=== PATIENT | male | born 1965 | race Hispanic/Latino ===

== ENCOUNTER 2018-08-06 11:35 | Inpatient (IN) | payer MEDICAID, OTHER, SELFPAY ==
--- NOTE | 2018-08-06 13:29 | RAD REPORT ---
EXAM DESCRIPTION: RAD - Chest Single View - 08/06/2018 1:01 pm CLINICAL HISTORY: Cough COMPARISON: March 2015 imaging TECHNIQUE: AP portable chest image was obtained 1256 hours . FINDINGS: No peripheral mass or consolidation. Heart size is normal. Right heart border is partially obscured by prominent right-sided pericardial fat. Mediastinum is distorted by rotation. No measurab le pleural effusion and no pneumothorax. No acute bony abnormality seen. No acute aortic findings christopher pected. IMPRESSION: No acute cardiopulmonary process.
[2018-08-06 13:44] LABS: Absolute Lymphocytes (CBC) 1.3 K/uL (0.7-4.9); Absolute Monocytes 0.5 K/uL (0.1-1.3); Absolute Neutrophil 8.4 K/uL (1.8-8.0); Basophils % 0.7 % (0-1.3); Eosinophils % 2.1 % (0-4.4); Hematocrit 38.7 % (39.6-49.0); Lymphocytes % 12.1 % (15.3-44.8); MPV 8.4 fL (7.6-11.3); Monocytes % 4.4 % (3.3-12.3); RBC Red Blood Cell Count 4.38 M/uL (4.33-5.43)
[2018-08-06 13:47] LABS: Protime INR 0.91
--- NOTE | 2018-08-06 13:52 | ER ---
Nurse's Notes [facility] Name: Alejandro Dunbar Age: 53 yrs Sex: Male : 1965 Arrival Date: 08/06/2018 Time: 11:37 Bed 6 Private MD: Sharon Boss Diagnosis: Weakness;Unspecified kidney failure;Type 2 diabetes mellitus;Hypothyroidism, unspecified;Hypocalcemia Presentation: 08/06 11:45 Presenting complaint: Patient states: Last month my doctor told me my calcium was low la1 and that I may need to be put on dialysis, he told me if I feel bad to come to there ER and I feel back and shaky. Transition of care: patient was not received from another setting of care. Onset of symptoms was August 06, 2018. Risk Assessment: Do you want to hurt yourself or someone else? Patient reports no desire to harm self or others. Initial Sepsis Screen: Does the patient meet any 2 criteria? No. Patient's initial sepsis screen is negative. Does the patient have a suspected source of infection? No. Patient's initial sepsis screen is negative. Care prior to arrival: None. 11:45 Method Of Arrival: Ambulatory la1 11:45 Acuity: KERRI 3 la1 Historical: - Allergies: 11:47 No Known Allergies; la1 - PMHx: 11:47 Diabetes - NIDDM; Hypertension; High Cholesterol; Hypothyroidism; la1 - Immunization history:: Adult Immunizations up to date. - Social history:: Smoking status: Patient/guardian denies using tobacco. - Ebola Screening: : No symptoms or risks identified at this time. - Family history:: not pertinent. Screenin:40 Abuse screen: Denies threats or abuse. Denies injuries from another. Nutritional sg screening: No deficits noted. Tuberculosis screening: No symptoms or risk factors identified. Never had TB. Fall Risk None identified. Assessment: 12:40 General: Appears in no apparent distress. uncomfortable, well groomed, well developed, sg well nourished, Behavior is calm, cooperative, appropriate for age. Pain: Complains of pain in right lower quadrant Quality of pain is described as crampy. Neuro: No deficits noted. Cardiovascular: Capillary refill is brisk in bilateral fingers Patient's skin is warm and dry. Chest pain is denied. Respiratory: Airway is patent Respiratory effort is even, unlabored, Respiratory pattern is regular, symmetrical. GI: Reports cramping. : No signs and/or symptoms were reported regarding the genitourinary system. EENT: No signs and/or symptoms were reported regarding the EENT system. Derm: Skin is intact, is healthy with good turgor, Skin is dry, Skin is normal, Skin temperature is warm. Musculoskeletal: No signs and/or symptoms reported regarding the musculoskeletal system. 13:48 Reassessment: Patient appears in no apparent distress at this time. Renal Doctor at bedside at this time. Vital Signs: 11:47 BP 173 / 92; Pulse 65; Resp 16; Temp 97.6; Pulse Ox 98% on R/A; Weight 72.57 kg; Height la1 6 ft. 4 in. (193.04 cm); 13:00 BP 152 / 88; Pulse 65; Pulse Ox 98% on R/A; sg 15:00 BP 156 / 89; Pulse 66; Resp 17; Temp 97.6; Pulse Ox 99% ; Height 5 ft. 4 in. (162.56 sg cm); 15:00 Body Mass Index 27.46 (72.57 kg, 162.56 cm) ED Course: 11:37 Patient arrived in ED. rg4 11:37 Sharon Boss MD is Private Physician. rg4 11:46 Triage completed. la1 11:47 Arm band placed on left wrist. la1 12:39 Felton Brantley MD is Attending Physician. lazaro 12:40 Patient has correct armband on for positive identification. Bed in low position. Call light in reach. 12:42 Steven Holt, SANJAY is Primary Nurse. 13:02 XRAY Chest (1 view) In Process Unspecified. EDMS 13:10 Missed attempt(s): 20 gauge in right forearm. Bleeding controlled, band aid applied, sg catheter tip intact. 13:29 Initial lab(s) drawn, by me, sent to lab. Inserted saline lock: 20 gauge in right dh3 forearm, using aseptic technique. Blood collected. 13:51 Filiberto Roman MD is Hospitalizing Provider. lazaro 14:33 Urine collected: urinal, clear. dh3 Administered Medications: No medications were administered Outcome: 13:51 Decision to Hospitalize by Provider. lazaro 16:00 Patient left the ED. hb Signatures: Dispatcher [employer] EDMS Steven Holt RN RN Felton Adam MD MD cha Attema, Lee, RN RN la1 Baxter, Heather, RN RN hb Garcia, Rubi 4 Concetta Salas 3
--- NOTE | 2018-08-06 13:52 | EDPHYS ---
Physician Documentation [facility] Name: Alejandro Dunbar Age: 53 yrs Sex: Male : 1965 Arrival Date: 08/06/2018 Time: 11:37 Bed 6 Private MD: Sharon Boss ED Physician Felton Brantley HPI: 08/06 13:46 This 53 yrs old Male presents to ER via Ambulatory with complaints of Doesn't lazaro Feel Right. 13:46 stage 5, kidney failure. Onset: The symptoms/episode began/occurred 5 day(s) ago. lazaro Severity of symptoms: At their worst the symptoms were mild moderate in the emergency department the symptoms are unchanged. The patient has not experienced similar symptoms in the past. Historical: - Allergies: 11:47 No Known Allergies; la1 - PMHx: 11:47 Diabetes - NIDDM; Hypertension; High Cholesterol; Hypothyroidism; la1 - Immunization history:: Adult Immunizations up to date. - Social history:: Smoking status: Patient/guardian denies using tobacco. - Ebola Screening: : No symptoms or risks identified at this time. - Family history:: not pertinent. ROS: 13:46 Constitutional: Negative for fever, chills, and weight loss, Eyes: Negative for injury, lazaro pain, redness, and discharge, ENT: Negative for injury, pain, and discharge, Neck: Negative for injury, pain, and swelling, Cardiovascular: Negative for chest pain, palpitations, and edema, Respiratory: Negative for shortness of breath, cough, wheezing, and pleuritic chest pain, Abdomen/GI: Negative for abdominal pain, nausea, vomiting, diarrhea, and constipation, Back: Negative for injury and pain, : Negative for injury, bleeding, discharge, and swelling, MS/Extremity: Negative for injury and deformity, Skin: Negative for injury, rash, and discoloration, Psych: Negative for depression, anxiety, suicide ideation, homicidal ideation, and hallucinations, Allergy/Immunology: Negative for hives, rash, and allergies, Endocrine: Negative for neck swelling, polydipsia, polyuria, polyphagia, and marked weight changes, Hematologic/Lymphatic: Negative for swollen nodes, abnormal bleeding, and unusual bruising. 13:46 Neuro: Positive for weakness. Exam: 13:46 Constitutional: This is a well developed, well nourished patient who is awake, alert, lazaro and in no acute distress. Head/Face: Normocephalic, atraumatic. Eyes: Pupils equal round and reactive to light, extra-ocular motions intact. Lids and lashes normal. Conjunctiva and sclera are non-icteric and not injected. Cornea within normal limits. Periorbital areas with no swelling, redness, or edema. ENT: Nares patent. No nasal discharge, no septal abnormalities noted. Tympanic membranes are normal and external auditory canals are clear. Oropharynx with no redness, swelling, or masses, exudates, or evidence of obstruction, uvula midline. Mucous membranes moist. Neck: Trachea midline, no thyromegaly or masses palpated, and no cervical lymphadenopathy. Supple, full range of motion without nuchal rigidity, or vertebral point tenderness. No Meningismus. Chest/axilla: Normal chest wall appearance and motion. Nontender with no deformity. No lesions are appreciated. Cardiovascular: Regular rate and rhythm with a normal S1 and S2. No gallops, murmurs, or rubs. Normal PMI, no JVD. No pulse deficits. Respiratory: Lungs have equal breath sounds bilaterally, clear to auscultation and percussion. No rales, rhonchi or wheezes noted. No increased work of breathing, no retractions or nasal flaring. Abdomen/GI: Soft, non-tender, with normal bowel sounds. No distension or tympany. No guarding or rebound. No evidence of tenderness throughout. Back: No spinal tenderness. No costovertebral tenderness. Full range of motion. Skin: Warm, dry with normal turgor. Normal color with no rashes, no lesions, and no evidence of cellulitis. MS/ Extremity: Pulses equal, no cyanosis. Neurovascular intact. Full, normal range of motion. Neuro: Awake and alert, GCS 15, oriented to person, place, time, and situation. Cranial nerves II-XII grossly intact. Motor strength 5/5 in all extremities. Sensory grossly intact. Cerebellar exam normal. Normal gait. Psych: Awake, alert, with orientation to person, place and time. Behavior, mood, and affect are within normal limits. Vital Signs: 11:47 BP 173 / 92; Pulse 65; Resp 16; Temp 97.6; Pulse Ox 98% on R/A; Weight 72.57 kg; Height la1 6 ft. 4 in. (193.04 cm); 13:00 BP 152 / 88; Pulse 65; Pulse Ox 98% on R/A; sg 15:00 BP 156 / 89; Pulse 66; Resp 17; Temp 97.6; Pulse Ox 99% ; Height 5 ft. 4 in. (162.56 sg cm); 15:00 Body Mass Index 27.46 (72.57 kg, 162.56 cm) MDM: 12:39 Patient medically screened. [facility] 13:54 Data reviewed: vital signs, nurses notes, lab test result(s), EKG, radiologic studies, lazaro plain films. 08/06 12:43 Order name: Basic Metabolic Panel; Complete Time: 14:26 [facility] 08/06 12:43 Order name: CBC with Diff; Complete Time: 14:16 [facility] 08/06 12:43 Order name: LFT's; Complete Time: 14:26 [facility] 08/06 12:43 Order name: Magnesium; Complete Time: 14:26 [facility] 08/06 12:43 Order name: NT PRO-BNP; Complete Time: 14:26 [facility] 08/06 12:43 Order name: PT-INR; Complete Time: 14:00 [facility] 08/06 12:43 Order name: Troponin (emerg Dept Use Only); Complete Time: 14:26 [facility] 08/06 12:43 Order name: XRAY Chest (1 view); Complete Time: 13:43 [facility] 08/06 12:43 Order name: EKG; Complete Time: 12:43 [facility] 08/06 12:43 Order name: Lipase; Complete Time: 14:27 [facility] 08/06 13:44 Order name: TSH [facility] 08/06 13:44 Order name: Uric Acid [facility] 08/06 14:18 Order name: T4 Free EDME 08/06 14:35 Order name: Urine Dipstick--Ancillary (enter results) 08/06 12:43 Order name: Cardiac monitoring; Complete Time: 13:03 [facility] 08/06 12:43 Order name: EKG - Nurse/Tech; Complete Time: 13:03 [facility] 08/06 12:43 Order name: IV Saline Lock; Complete Time: 13:33 [facility] 08/06 12:43 Order name: Labs collected and sent; Complete Time: 13:33 [facility] 08/06 12:43 Order name: O2 Per Protocol; Complete Time: 13:03 [facility] 08/06 12:43 Order name: O2 Sat Monitoring; Complete Time: 13:03 [facility] 08/06 12:43 Order name: Urine Dipstick-Ancillary (obtain specimen); Complete Time: 14:33 [facility] Administered Medications: No medications were administered Disposition: 08/06/18 13:51 Hospitalization ordered by Filiberto Roman for Inpatient Admission. Preliminary diagnosis are Weakness, Unspecified kidney failure, Type 2 diabetes mellitus, Hypothyroidism, unspecified, Hypocalcemia. - Bed requested for Telemetry/MedSurg (Inpatient). - Status is Inpatient Admission. hb - Condition is Stable. - Problem is new. - Symptoms have improved. UTI on Admission? No Signatures: Dispatcher [employer] EDMS Felton Brantley MD MD cha Attema, Lee, RN RN la1 Ambar Vaca RN RN Di Cormier RN RN df Corrections: (The following items were deleted from the chart) 13:52 13:51 Hospitalization Ordered by Filiberto Rmoan MD for Inpatient Admission. Preliminary [facility] diagnosis is Weakness; Unspecified kidney failure. Bed requested for Telemetry/MedSurg (Inpatient). Status is Inpatient Admission. Condition is Stable. Problem is new. Symptoms have improved. UTI on Admission? No. lazaro 14:27 13:52 08/06/2018 13:51 Hospitalization Ordered by Filiberto Roman MD for Inpatient lazaro Admission. Preliminary diagnosis is Weakness; Unspecified kidney failure; Type 2 diabetes mellitus. Bed requested for Telemetry/MedSurg (Inpatient). Status is Inpatient Admission. Condition is Stable. Problem is new. Symptoms have improved. UTI on Admission? No. lazaro 14:32 14:27 08/06/2018 13:51 Hospitalization Ordered by Filiberto Roman MD for Inpatient lazaro Admission. Preliminary diagnosis is Weakness; Unspecified kidney failure; Type 2 diabetes mellitus; Hypothyroidism, unspecified. Bed requested for Telemetry/MedSurg (Inpatient). Status is Inpatient Admission. Condition is Stable. Problem is new. Symptoms have improved. UTI on Admission? No. lazaro 14:55 14:32 08/06/2018 13:51 Hospitalization Ordered by Filiberto Roman MD for Inpatient df Admission. Preliminary diagnosis is Weakness; Unspecified kidney failure; Type 2 diabetes mellitus; Hypothyroidism, unspecified; Hypocalcemia. Bed requested for Telemetry/MedSurg (Inpatient). Status is Inpatient Admission. Condition is Stable. Problem is new. Symptoms have improved. UTI on Admission? No. lazaro 16:00 14:55 08/06/2018 13:51 Hospitalization Ordered by Filiberto Roman MD for Inpatient hb Admission. Preliminary diagnosis is Weakness; Unspecified kidney failure; Type 2 diabetes mellitus; Hypothyroidism, unspecified; Hypocalcemia. Bed requested for Telemetry/MedSurg (Inpatient). Status is Inpatient Admission. Condition is Stable. Problem is new. Symptoms have improved. UTI on Admission? No. df
[2018-08-06 14:14] LABS: ALT/SGPT 19 U/L (12-78); AST/SGOT 10 U/L (15-37); Albumin 3.3 g/dL (3.4-5.0); Alkaline Phosphatase 63 U/L (45-117); BUN Blood Urea Nitrogen 76 mg/dL (7-18); Bicarbonate 21 mmol/L (21-32); Bilirubin Direct < 0.1 mg/dL (0-0.2); Bilirubin Total 0.2 mg/dL (0.2-1.0); Glucose Level 156 mg/dL (74-106); Lipase 386 U/L (73-393); Magnesium 2.1 mg/dL (1.8-2.4); NT PRO-BNP 637 pg/mL (<125); Potassium 4.4 mmol/L (3.5-5.1); Protein, Total 7.4 g/dL (6.4-8.2); Sodium Level 138 mmol/L (136-145); Troponin (Emerg Dept Use Only) < 0.02 ng/mL (0.0-0.045)
[2018-08-06 14:16] LABS: Uric Acid 9.2 mg/dL (3.5-7.2)
[2018-08-06 14:18] LABS: Thyroid Stimulating Hormone 90.9 uIU/mL (0.360-3.740)
[2018-08-06 15:11] LABS: Urine Blood 2+ (NEG); Urine Glucose TRACE (NEG); Urine Protein 3+ (NEG); Urine Specific Gravity 1.015 (1.005-1.030)
[2018-08-06] MEDS ORDERED: ONDANSETRON 4 MG/2 ML VIAL IV PRN (15:48)
[2018-08-06] MEDS ORDERED: ACETAMINOPHEN 500 MG TAB PO PRN (15:48)
[2018-08-06] MEDS: INSULIN -REGULAR HUMAN 50 UNIT/0.5 ML ML SQ SCH ×2 (16:30→20:51)
[2018-08-06] MEDS: NA CHLORIDE 0.9% 1,000 ML IV SCH (16:40)
[2018-08-06] MEDS: LEVOTHYROXINE SODIUM 100 MCG VIAL IV SCH (16:40)
[2018-08-06] MEDS: ATORVASTATIN 10 MG TAB PO SCH (20:42)
[2018-08-06] MEDS: CARVEDILOL 6.25 MG TAB PO SCH (20:50)
--- NOTE | 2018-08-06 22:03 | CON ---
Date of Consultation: 08/06/2018 Reason For Service: Renal failure, placement of hemodialysis catheter. History Of Present Illness: This is the case of a 53-year-old patient, who comes to us with 5 days h istory of malaise. The patient was admitted to the hospital after found to have renal failure. Surg ical consult was obtained for the options of a hemodialysis catheter. He states he used to be diabet ic, he does not take his medications anymore because he said that he was told not to, as he has hyper tension. Allergies: NONE. Past Medical History: Diabetes, hypertension, high cholesterol, hypothyroidism. Past Surgical History: None. Social History: He does not smoke. He does not drink alcohol. Family History: Kidney disease with hypertension. Review of Systems: Ten points otherwise unremarkable. Physical Examination: General: The patient is awake and alert. HEENT: Pupils are equal and reactive, anicteric. Neck: Supple. Chest: Clear. Abdomen: Soft and depressible. Nontender, nondistended. The bowel sounds positive. Extremities: Good capillary refill. Laboratory Data: Blood work shows WBC count of 10.4, hemoglobin of 13. INR is 0.91. Creatinine is 7.77, potassium 4.4. Chest x-ray shows no acute pulmonary process. Assessment/plan: This is a 53-year-old patient in need of hemodialysis catheter. The patient was fu lly explained the placement of HemoSplit hemodialysis catheter with benefits, alternatives, and risks including, but not limited to infection, bleeding, damage to adjacent structures, anesthesia complic ation, pneumothorax, hemothorax, pericardiac tamponade, cardiac arrhythmias, deep vein thrombosis, pu lmonary emboli, myocardial infarction, even . He also understands this may not relieve any symp toms. He might need more than one surgical intervention. He was also explained that this is a tempo rary catheter and if the doctor decides to continue dialysis, he has to be a peripheral vascular surg britney, who can have a more permanent catheter in that region. He understood and he says he will sign t he consent. KACEY/CASSIE Voice ID: [id number] Report ID: [id number]
[2018-08-07] MEDS: NA CHLORIDE 0.9% 1,000 ML IV SCH (00:48)
--- NOTE | 2018-08-07 03:58 | HP ---
Date of Admission: 08/06/2018 Chief Complaint: Generalized malaise, abnormal labs. History Of Present Illness: The patient is a 53-year-old male with past medical history of hypertens ion, chronic kidney disease, hypothyroidism, who was in his usual state of health until several days prior to admission when he had some abnormal labs found on routine check. The patient has been seein g Dr. Boss for his kidney dysfunction, has stage 5 kidney disease, not on dialysis at this time. The patient was also feeling some generalized weakness and dizziness. Denies any nausea, vomiting, fever, chills, chest pain, palpitations, diarrhea, or constipation. The patient's symptoms are const ant, moderate, progressively worsening. Therefore, he came into the ER for further evaluation. He a lso states that he has been out of his thyroid medicine for the past 2 weeks. In the ER, his vital s igns were stable. His workup revealed a normal white count. His creatinine was 7.77 and his TSH was elevated at 90. The patient was then referred to Dr. Boss who recommended inpatient admission f or initiating dialysis. When seen in the ER, he was awake, alert, oriented x3, not in any acute dist ress. It should be noted that a graduate studies dean was used for communication. The patient is Span nathaniel-speaking only. Past Medical History: Hypertension, hypothyroidism, chronic kidney disease stage 5. Allergies: NO KNOWN DRUG ALLERGIES. Medications: List reviewed. Past Surgical History: None. Family History: The patient denies any family history of diabetes, hypertension, or kidney disease. Social History: The patient smokes 2 cigarettes per day, has been smoking for several years. No alc ohol use or illicit drug use. The patient is independent in his activities of daily living. 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 Review of Systems: An 11-point system reviewed, negative except as per HPI. Physical Examination: Vital Signs: Blood pressure 173/92, pulse 65, respirations 16, temperature 97.6, O2 98% on room air. General: Awake, alert, oriented x3, in some mild distress. HEENT: Normocephalic, atraumatic. PERRLA, EOMI. Moist mucous membranes. Oropharynx is clear. Con junctiva is anicteric. Neck: Supple. Trachea midline. CV: S1, S2. Regular rate and rhythm. Peripheral pulses present. Respiratory: Moving air well bilaterally. No wheezing or stridor. No use of accessory muscles. Gastrointestinal: Abdomen is soft, nontender, nondistended. Positive bowel sounds. No guarding, no rigidity. Extremities: No clubbing, cyanosis, or edema. No calf tenderness. Neuro: Cranial nerves 2 through 12 intact grossly. No focal neurological deficit. Speech is normal . Skin: No rashes. Normal skin turgor. Laboratory Data: Sodium 138, potassium 4.4, chloride 106, CO2 21, BUN 76, creatinine 7.77, glucose 1 56, uric acid 9.2, calcium 6.4, magnesium 2.1, AST 10, ALT 19. Troponin less than 0.02. BNP 637. A lbumin 3.3. TSH 90, free T4 0.42. WBC 10.4, H and H 13.3 and 38.7, platelets 323, neutrophils 80%. Imaging Studies: Chest x-ray shows no acute cardiopulmonary process. Assessment: A 53-year-old male with: 1.[id number] kidney injury stage 5. The patient does have some electrolyte abnormalities and needs to be initiated on dialysis. Dr. Boss with Nephrology has been consulted. The patient maurice l need dialysis catheter. Dr. Flores is on for surgery. We will start on IV fluids, monitor creat inine, and avoid nonsteroidal anti-inflammatory drugs. 2.Hypocalcemia. We will replace and monitor. 3.Hyperuricemia. 4.Hypothyroidism, TSH is 90. The patient states he has been out of his home medication. We will st art on IV Synthroid until TSH is less than 50. 5.Essential hypertension. We will resume home medications as appropriate. 6.Gastrointestinal/deep venous thrombosis prophylaxis with proton pump inhibitor and Lovenox renally dosed. Plan: Admit the patient to Med-Surg, place as inpatient with remote cardiac telemetry. Length of stay greater than 2 midnights. ALAN Voice ID: [id number]
[2018-08-07 05:10] LABS: Absolute Lymphocytes (CBC) 1.8 K/uL (0.7-4.9); Absolute Monocytes 0.5 K/uL (0.1-1.3); Absolute Neutrophil 7.4 K/uL (1.8-8.0); Basophils % 0.5 % (0-1.3); Eosinophils % 2.4 % (0-4.4); Hematocrit 35.7 % (39.6-49.0); Lymphocytes % 18.1 % (15.3-44.8); MPV 8.4 fL (7.6-11.3); Monocytes % 5.2 % (3.3-12.3); RBC Red Blood Cell Count 3.97 M/uL (4.33-5.43)
[2018-08-07] MEDS: LEVOTHYROXINE SODIUM 100 MCG VIAL IV SCH ×2 (05:45→12:47)
[2018-08-07 05:48] LABS: Albumin 2.9 g/dL (3.4-5.0); Bilirubin Total 0.2 mg/dL (0.2-1.0); Phosphorus 5.2 mg/dL (2.5-4.9); Potassium 4.1 mmol/L (3.5-5.1); Protein, Total 6.4 g/dL (6.4-8.2)
[2018-08-07] MEDS: INSULIN -REGULAR HUMAN 50 UNIT/0.5 ML ML SQ SCH ×4 (07:30→20:00)
[2018-08-07] MEDS ORDERED: CA ACETATE 667 MG CAP PO SCH (08:00)
[2018-08-07] MEDS: CALCITROL 0.25 MCG CAP PO SCH (08:52)
[2018-08-07] MEDS: CARVEDILOL 6.25 MG TAB PO SCH ×2 (08:53→20:04)
[2018-08-07] MEDS ORDERED: PROPOFOL 200 MG/20 ML VIAL IV ONE (09:35)
[2018-08-07] MEDS ORDERED: LIDOCAINE 2% MPF 5 ML VIAL ONE (09:36)
[2018-08-07] MEDS ORDERED: MIDAZOLAM HCL 2 MG/2 ML INJ ONE (09:36)
[2018-08-07] MEDS ORDERED: CALCIUM CARBONATE CHEW 500MG TAB PO PRN (09:37)
[2018-08-07] MEDS ORDERED: NS 0.9% VIAL 10 ML ONE (09:46)
[2018-08-07] MEDS ORDERED: LIDOCAINE 1% MPF 30 ML VIAL ONE (09:47)
[2018-08-07] MEDS ORDERED: NA CHLORIDE 0.9% 100 ML IV ONE (09:47)
[2018-08-07] MEDS ORDERED: NA CHLORIDE 0.9% 1,000 ML ONE (09:50)
[2018-08-07] MEDS ORDERED: CEFAZOLIN/SWI 1gm 1 GM/10 ML SYR ONE (10:27)
[2018-08-07] MEDS ORDERED: GLYCOPYRROLATE 0.2 MG/ML SYR ONE (10:51)
[2018-08-07] MEDS ORDERED: CALCIUM GLUC 10% INJ 4.65 MEQ in NA CHLORIDE 0.9% 100 ML IV ONE (11:00)
--- NOTE | 2018-08-07 11:13 | P.BOP ---
Preoperative diagnosis: ESRD Postoperative diagnosis: same Primary procedure: 1. Placement of hemosplit HD catheter Secondary procedure: 2. Interpretation of fluoroscopy Other procedure(s): 3. right neck ultrasound for line placement Estimated blood loss: <10cc Findings: as above Anesthesia: General Complications: None Implants: hemosplit Transferred to: Recovery Room
[2018-08-07] MEDS ORDERED: MORPHINE 10 MG/ML VIAL ONE (11:17)
[2018-08-07] MEDS: HEPARIN 5000 UNIT/ML 1 ML VIAL ONE ×2 (11:27→11:28)
--- NOTE | 2018-08-07 11:34 | RAD REPORT ---
EXAM DESCRIPTION: RAD - Fluoroscopy <1 Hour - 08/07/2018 11:29 am CLINICAL HISTORY: Venous catheter insertion. HEMO DIALYSIS CATHETER PLACEMENT COMPARISON: No comparisons FINDINGS: Fluoroscopic imaging is submitted from placement of a venous catheter. Details of the pro cedure not available. Fluoroscopy time: 1.1 minutes.
[2018-08-07] MEDS ORDERED: D50W 25 GM/50 ML SYRINGE IV PRN (11:36)
[2018-08-07] MEDS ORDERED: GLUCAGON 1 MG/VIAL IM PRN (11:36)
--- NOTE | 2018-08-07 11:52 | RAD REPORT ---
EXAM DESCRIPTION: RAD - Chest Single View - 08/07/2018 11:37 am CLINICAL HISTORY: s/p central line placement Chest pain. COMPARISON: Chest Single View dated 08/06/2018 FINDINGS: Portable technique limits examination quality. Right-sided central line has been placed with its in the SVC/right atrium junction. No postprocedure pneumothorax is seen. Mild bilateral pulmonary opacities are present likely representing pulmonary ed paras.The heart is enlarged mildly. IMPRESSION: No postprocedure pneumothorax.
[2018-08-07] MEDS: FUROSEMIDE 40 MG/4 ML VIAL IV SCH (12:47)
[2018-08-07] MEDS: HYDROCODONE/APAP 5/325 MG TAB PO PRN ×2 (12:47→19:56)
--- NOTE | 2018-08-07 14:43 | PN ---
Date of Progress Note: 08/07/2018 Subjective: Patient is seen and examined. Chart reviewed and case discussed with RN. The patient denies any events overnight. Medications: List reviewed. Physical Examination: Vital Signs: Temperature 97.7, heart rate 54, blood pressure 147/81, respirations 18, O2 97% on room air. General: Awake, alert, oriented x3, not in any acute distress. CV: S1, S2. Regular rate and rhythm. Peripheral pulses present. Respiratory: Moving air well bilaterally except at the bases some diminished breath sounds and crackles heard. No wheezing. GASTROINTESTINAL: Abdomen is soft, nontender, nondistended. Positive bowel sounds. Extremities: No clubbing, cyanosis. Pedal edema is present. Neurologic: Nonfocal. Cranial nerves 2 through 12 intact grossly. No focal neurological deficit. Speech is normal. SKIN: No rashes. Normal skin turgor. Laboratory Data: Sodium 141, potassium 4.1, chloride 111, CO2 22, BUN 78, creatinine 7.72, glucose 90, calcium 5.8, albumin is 2.9, corrected calcium is 7. Assessment And Plan: A 53-year-old male with, 1. Acute on chronic kidney injury stage 5. The patient to be initiated on dialysis. Appreciate Dr. Boss's input. The patient is going for dialysis catheter placement today by Dr. Flores. Continue IV fluids. Monitor creatinine. 2. Hypocalcemia, corrected calcium is 7. The patient is already on Rocaltrol. We will give calcium IV. 3. Hyperuricemia. 4. Hypothyroidism. Continue with IV Synthroid. We will check TSH in a.m., switch to p.o. the levothyroxine once TSH is less than 50. 5. Essential hypertension. Resume home medications. Stable. 6. gastrointestinal and deep venous thrombosis prophylaxis with PPI and hold Lovenox due to surgery. SA/MODL Voice ID: [id number] Report ID: [id number] MTDMer
--- NOTE | 2018-08-07 15:05 | CON ---
Date of Consultation: 08/06/2018 Consulting Physician: Dr. Roman, Dr. Brantley. Reason For Consultation: Elevated BUN and creatinine, hypocalcemia. History Of Present Illness: This is a pleasant, unfortunate 53-year-old gentleman, well-known to me from the office with significant past medical history of diabetes complicated with neuropathy and nep hropathy, chronic kidney disease stage 5 and progression to end-stage renal disease, hypertension, hy perlipidemia, secondary hyperpara, the patient was in his regular state of health. The patient came visiting to the office for the last couple of months; still each time we tried to get him to the hosp ital to initiate dialysis, patient did not get to the hospital. The patient's last visit a few weeks ago, we referred him to initiate dialysis Wednesday, the patient never showed up. This time, the patie nt started feeling weak, losing energy, fatigue. For that reason, presented to the hospital, found t o have elevated BUN and creatinine and severe hypocalcemia. For that reason, will be admitted and we have been consulted. The patient denied any recent change in his medication. No fever. No chills. No diarrhea. Past Medical History: 1.Hypertension. 2.Diabetes complicated with neuropathy and nephropathy. 3.Hyperlipidemia. 4.Hypothyroidism. 5.Secondary hyperpara. 6.Chronic kidney disease stage 5, progression to end-stage renal disease. Allergies: NO KNOWN DRUG ALLERGIES. Surgical History: Noncontributory. Family History: Positive for diabetes. Social History: Denies smoking, denies drinking, denies drugs abuse. Review of Systems: Head and Neck: No red eye. No ear pain. GI: No nausea. Has decreased intake. : No polyuria. No dysuria. No hematuria. Insurance Claim Representative: Not applicable. Respiratory: Has shortness of breath. Cardiovascular: Has leg swelling. Endocrine: No polydipsia. Neuro: Has neuropathy. Musculoskeletal: Has fatigue. Skin: No rash. Physical Examination: Vital Signs: When I saw the patient, blood pressure 146/56, pulse of 97. Chest: Crackles, bilateral base. Heart: S1, S2. Regular. Abdomen: Soft, nontender. Extremity: Trace edema. Neuro: Alert, oriented. Nonfocal. No tremor. Laboratory Data: For the patient; sodium 138, potassium 4.4, bicarb 21, BUN 76, creatinine 7.7, GFR of 7, calcium 6.4, TSH of 90, WBC 10.4, H and H 13.3/38.7, platelet 323. Urinalysis, +3 protein. Assessment And Plan: 1.Chronic kidney disease stage 5, progression to end-stage renal disease. We will initiate dialysis . We will consult Surgery for plan for Perm-A-Cath and surgery will initiate dialysis. 2.Hypertension, controlled, not optimal. We will utilize blood pressure for more ultrafiltration an d diuresis. I am going to start the patient on Lasix. 3.Secondary hyperparathyroidism. We will send for PTH, start calcitriol and Tums. 4.Hypocalcemia secondary to secondary hyperparathyroidism. As above, the patient is asymptomatic cu rrently, the patient is going to be dialyzed on high calcium bath. 5.Hypothyroidism. We will resume levothyroxine for the patient. 6.Diabetes, as by primary. Thank you, Dr. Roman, Dr. Brantley, for allowing us to participate in the care of your patient. Case discussed with the patient, verbalized understanding. JESUS Voice ID: [id number] Report ID: [id number]
[2018-08-07] MEDS: ATORVASTATIN 10 MG TAB PO SCH (20:04)
--- NOTE | 2018-08-07 23:32 | OP ---
Date of Procedure: 08/07/2018 Surgeon: Javier Flores MD Preoperative Diagnosis: End-stage renal disease. Postoperative Diagnosis: End-stage renal disease. Procedures: 1.Placement of a HemoSplit hemodialysis tunneled catheter. 2.Interpretation of fluoroscopy. 3.Right neck ultrasound for line placement. Anesthesia: General plus local. Implant: HemoSplit hemodialysis cuffed tunneled catheter. Indication: This is the case of a male who comes to us with renal failure needing hemodialysis. He asked me to put HemoSplit. Benefits, alternatives, and risks of placement fully explained to the pat ient, which include but are not limited to infection, bleeding, damage to adjacent structures, anesth esia complication, pneumothorax, cardiac tamponade, pericardiac tamponade, DVTs, pulmonary emboli, he mothorax, pneumothorax, pericarditis, OK, even . He also understands this may not relieve any s ymptoms. He might need more than one surgical intervention. He understands this is a temporary cath eter. If he continues dialysis, his renal doctor have to look for a more permanent catheter placemen t. He understood, signed the consent. Description Of Procedure: The patient was brought to the operating room, placed in supine position. Anesthesia was done without any complication. A time-out was called. The right chest and neck were prepped and draped in a sterile fashion. The patient was placed in Trendelenburg position. An ultr asound was done to localize the internal jugular vein. We put a needle in the right internal jugular vein at the first attempt. A guidewire was passed through, needle was removed. We proceeded to wilber e a small incision in the right upper chest. The guidewire was guided into the superior vena cava us ing fluoroscopy. So, we tunneled a catheter underneath the skin to meet that new incision to the [facility] k. Using fluoroscopy guidance, we used several dilators until we had an introducer placed in. Guide wire was removed. Catheter was placed in. Introducer was peeled off. The catheter seems to be in p lace with fluoroscopy guidance. The catheter was secured in place with 3-0 nylon, flushed, excellent backflow flushed in, and then was flushed with heparinized saline too. The patient tolerated the pr ocedure well. The patient was brought back from Trendelenburg position to normal position. The devang ent was sent to Recovery in stable condition after putting sterile dressings, and a chest x-ray was o rdered stat. KACEY/CASSIE Voice ID: [id number] Report ID: [id number]
[2018-08-08] MEDS: LEVOTHYROXINE SODIUM 100 MCG VIAL IV SCH ×2 (05:08→14:16)
[2018-08-08 06:21] LABS: Absolute Lymphocytes (CBC) 1.8 K/uL (0.7-4.9); Absolute Monocytes 0.5 K/uL (0.1-1.3); Absolute Neutrophil 6.1 K/uL (1.8-8.0); Basophils % 0.9 % (0-1.3); Eosinophils % 2.7 % (0-4.4); Hematocrit 37.9 % (39.6-49.0); Lymphocytes % 20.3 % (15.3-44.8); MPV 8.3 fL (7.6-11.3); Monocytes % 5.8 % (3.3-12.3); RBC Red Blood Cell Count 4.19 M/uL (4.33-5.43)
[2018-08-08 07:12] LABS: Albumin 3.1 g/dL (3.4-5.0); Bilirubin Total 0.2 mg/dL (0.2-1.0); Phosphorus 5.4 mg/dL (2.5-4.9); Potassium 4.2 mmol/L (3.5-5.1); Protein, Total 6.9 g/dL (6.4-8.2)
[2018-08-08] MEDS: INSULIN -REGULAR HUMAN 50 UNIT/0.5 ML ML SQ SCH ×4 (07:30→20:23)
[2018-08-08] MEDS: CARVEDILOL 6.25 MG TAB PO SCH ×2 (08:36→20:19)
[2018-08-08] MEDS: CALCITROL 0.25 MCG CAP PO SCH (08:36)
[2018-08-08] MEDS: FUROSEMIDE 40 MG/4 ML VIAL IV SCH (08:36)
--- NOTE | 2018-08-08 16:18 | PN ---
Date of Progress Note: 08/08/2018 Subjective: Patient seen and examined. Chart reviewed and case discussed with RN. The patient had a dialysis catheter placed yesterday, was scheduled for dialysis today. Medications: List reviewed. Physical Examination: Vital Signs: Temperature 98, heart rate 51, blood pressure 167/114, respirations 17, and O2 of 96% o n room air. General: Awake, alert, and oriented x3, not in any acute distress. CV: S1 and S2. Regular rate and rhythm. Peripheral pulses present. Respiratory: Diminished breath sounds overall. No wheezing or stridor. Gastrointestinal: Abdomen is soft, nontender, nondistended. Positive bowel sounds. Extremities: No clubbing, cyanosis, pedal edema. Neurologic: Nonfocal. Laboratory Data: Sodium 142, potassium 4.2, chloride 103, CO2 25, BUN 69, creatinine 7.87, glucose 1 06, calcium 6.6, phosphorus 5.4, magnesium 2. TSH is 160. WBC 8.7, H and H 13 and 37.9, platelets 3 02, neutrophils 70%. Chest x-ray from 08/07/2018, shows no postprocedure pneumothorax. Central line placed, tip in the SVC. Assessment And Plan: A 53-year-old male with; 1.Acute on chronic kidney injury, stage 5, now with dialysis catheter. We will start dialysis today . Nephrology on board. 2.Hypocalcemia. Calcium is being replaced. We will continue to monitor. Corrected calcium is abov e 7. 3.Hyperuricemia. 4.Hypothyroidism. TSH has actually gone up to 160. We will increase dose of levothyroxine. Contin ue on IV levothyroxine for now until TSH less than 50. 5.Essential hypertension stable on home medications. 6.GI and DVT prophylaxis with PPI. We will resume Lovenox. Plan: composite layup worker is consulted for setting up chair time for out outpatient dialysis. /NERYL Voice ID: [id number] Report ID: [id number]
[2018-08-08] MEDS: ATORVASTATIN 10 MG TAB PO SCH (20:18)
--- NOTE | 2018-08-09 04:04 | PN ---
Date of Progress Note: 08/08/2018 Chief Complaint: End-stage renal disease, new onset. Subjective: The patient has multiple medical problems including history of diabetes complicated by neuropathy, nephropathy, chronic kidney disease stage 5 , progressed to end-stage renal disease, hypertension, hyperlipidemia, secondary hyperparathyroid. He underwent dialysis catheter placement and has tunneled dialysis catheter procedure done and dialysis is initiated today. Review of Systems: Denies fever, chills. Physical Examination: Lungs: Few crackles at bases. Heart: S1, S2. Abdomen: Soft, benign. Extremities: Slight edema. Impression And Plan: 1. End-stage renal disease, fluid overload. Dialysis is started today. The patient has severe azotemia. BUN is 69, creatinine 7.87. Electrolytes as follow; sodium 142, potassium 4.2, chloride 109, CO2 25. 2. Hypoalbuminemia: Albumin is 3.1. The patient will continue high-protein intake. 3. Anemia in CKD. Hemoglobin level is elevated up to 13. The patient does not require SUMIT. JULEE/CASSIE Voice ID: [id number] Report ID: [id number] EFREN
[2018-08-09 05:11] LABS: Absolute Lymphocytes (CBC) 1.9 K/uL (0.7-4.9); Absolute Monocytes 0.6 K/uL (0.1-1.3); Absolute Neutrophil 6.4 K/uL (1.8-8.0); Basophils % 0.9 % (0-1.3); Eosinophils % 3.2 % (0-4.4); Hematocrit 35.9 % (39.6-49.0); Lymphocytes % 20.9 % (15.3-44.8); MPV 8.3 fL (7.6-11.3); Monocytes % 6.7 % (3.3-12.3); RBC Red Blood Cell Count 3.99 M/uL (4.33-5.43)
[2018-08-09 05:37] LABS: Bilirubin Total 0.3 mg/dL (0.2-1.0); Phosphorus 5.6 mg/dL (2.5-4.9); Potassium 4.1 mmol/L (3.5-5.1); Protein, Total 6.7 g/dL (6.4-8.2)
[2018-08-09] MEDS: LEVOTHYROXINE SODIUM 100 MCG VIAL IV SCH (05:44)
[2018-08-09] MEDS: SODIUM CHLORIDE 0.9% 10ML INJ IV PRN (05:46)
[2018-08-09] MEDS: INSULIN -REGULAR HUMAN 50 UNIT/0.5 ML ML SQ SCH ×4 (07:30→21:00)
[2018-08-09] MEDS: CALCITROL 0.25 MCG CAP PO SCH (09:11)
[2018-08-09] MEDS: FUROSEMIDE 40 MG/4 ML VIAL IV SCH (09:11)
[2018-08-09] MEDS: CARVEDILOL 6.25 MG TAB PO SCH (09:11)
--- NOTE | 2018-08-09 11:31 | EKG ---
Test Date: 2018-08-06 Test Time: 12:57:40 Private Client Advisor: SWG MEASUREMENT RESULTS: Intervals: Rate: 59 MT: 178 QRSD: 90 QT: 440 QTc: 435 Island: P: 48 MT: 178 QRS: 60 T: 139 INTERPRETIVE STATEMENTS: Sinus bradycardia Nonspecific ST and T wave abnormality Abnormal ECG No previous ECG available for comparison Electronically Signed On 08-07-18 10:50:41 CDT by James Benavides
--- NOTE | 2018-08-09 13:15 | P.PN ---
Subjective Date of Service: 08/09/18 Chief Complaint: New ESRD Subjective: No C/O voiced Patient seen and examined at bedside. No family at bedside. Chart reviewed and case discussed with nursing staff. Patient admitted for new diagnosis of ESRD, now with HD catheter placement. He is doing well, states he has no complaints this am. No acute events noted overnight. Review of Systems 10-point ROS is otherwise unremarkable Physical Examination - Vital Signs Temperature: 97.8 F Blood Pressure: 135/74 Pulse: 54 Respirations: 16 Pulse Ox (%): 95 - Physical Exam General: Alert, In no apparent distress HEENT: Atraumatic, PERRLA, EOMI Neck: Supple, JVD not distended Respiratory: Clear to auscultation bilaterally, Normal air movement Cardiovascular: Regular rate/rhythm, Normal S1 S2 Gastrointestinal: Normal bowel sounds, No tenderness Musculoskeletal: No tenderness Integumentary: No rashes Neurological: Normal speech, Normal tone, Normal affect - Studies Sodium 142, potassium 4.1, chloride 107, CO2 29, BUN 51, creatinine 6.60, glucose 89 WBC 9.3, H and H 11.7 and 35.9, platelets 263 Microbiology Data (last 24 hrs): Wound culture: Pseudomonas Aeruginosa Medications List Reviewed: Yes Assessment And Plan - Plan A 53-year-old male with; Acute on chronic kidney injury, stage 5, now with dialysis catheter. Patient started dialysis 08/08/2018. Nephrology on board. He is pending set up for chair time for outpatient dialysis. We will start dialysis today. Nephrology on board. Recommendations appreciated. Hypocalcemia. His calcium levels are improving. Calcium is being replaced. We will continue to monitor. Corrected calcium continues to be above 7. Hyperuricemia. Hypothyroidism. TSH above 160. Continue on IV levothyroxine for now until TSH less than 50. Then will convert to PO Essential hypertension stable on home medications. DVT prophylaxis: Lovenox GI prophylaxis: None Diet: Renal Plan: child care worker consulted for setting up chair time for out outpatient dialysis, discharge pending outpatient dialysis chair time set up. Discharge Plan: Home
[2018-08-09] MEDS: CALCIUM CARBONATE CHEW 500MG TAB PO SCH (16:30)
--- NOTE | 2018-08-09 16:37 | PN ---
Date of Progress Note: 08/09/2018 Subjective: The patient is status post initiating dialysis, dialyzed yesterday and plan for dialysis today. Tolerated the dialysis yesterday. Physical Examination: Vital Signs: Blood pressure 135/74, pulse of 54, afebrile. Chest: Clear to auscultation. Heart: S1, S2. Regular. Abdomen: Soft, nontender. Extremities: No edema. Laboratory Data: H and H 11.7/35.9, sodium 142, potassium 4.2, bicarb 29, BUN 51, creatinine down to 6, calcium 7.5 trending up, phosphorus 5.6, albumin 3, corrected calcium 8.3. Current Medications: The patient on include calcium carbonate 1000 q.i.d., atorvastatin, carvedilol 6.25, hydralazine, Lasix, levothyroxine 100 IV, hydrocodone. Assessment And Plan: 1.End-stage renal disease. We will continue the patient on dialysis. We will continue dialysis inderjit ly, tomorrow going to be his third dialysis and we will monitor. 2.Hypertension, controlled, optimal. I am going to go ahead and decrease carvedilol to 3.25, and we will follow up. 3.Secondary hyperparathyroidism with hypocalcemia. I am going to change calcium carbonate to be wit h each meal. 4.Diabetes, as by primary. The patient is waiting for outpatient setup for dialysis. We will follo w up. JESUS Voice ID: [id number] Report ID: [id number]
[2018-08-09] MEDS: ATORVASTATIN 10 MG TAB PO SCH (21:08)
[2018-08-09] MEDS: CARVEDILOL 3.125 MG TAB PO SCH (21:12)
[2018-08-10] MEDS: HYDRALAZINE HCL 20 MG/ML VIAL IV PRN (00:47)
[2018-08-10] MEDS: LEVOTHYROXINE SODIUM 100 MCG VIAL IV SCH (05:39)
[2018-08-10 06:30] LABS: Phosphorus 4.3 mg/dL (2.5-4.9); Potassium 3.9 mmol/L (3.5-5.1)
[2018-08-10 06:33] LABS: Thyroid Stimulating Hormone 62.7 uIU/mL (0.360-3.740)
[2018-08-10] MEDS: INSULIN -REGULAR HUMAN 50 UNIT/0.5 ML ML SQ SCH ×4 (07:30→21:00)
[2018-08-10] MEDS: CARVEDILOL 3.125 MG TAB PO SCH ×2 (08:56→20:08)
[2018-08-10] MEDS: FUROSEMIDE 40 MG/4 ML VIAL IV SCH (08:56)
[2018-08-10] MEDS: CALCIUM CARBONATE CHEW 500MG TAB PO SCH ×3 (08:57→17:14)
[2018-08-10] MEDS: CALCITROL 0.25 MCG CAP PO SCH (08:57)
--- NOTE | 2018-08-10 10:44 | P.PN ---
Subjective Date of Service: 08/10/18 Chief Complaint: New ESRD Subjective: No C/O voiced Patient seen and examined at bedside. No family at bedside. Chart reviewed and case discussed with nursing staff. Patient admitted for new diagnosis of ESRD, now with HD catheter placement. He is doing well, states he has no complaints this am. No acute events noted overnight. Review of Systems 10-point ROS is otherwise unremarkable Physical Examination - Vital Signs Temperature: 98.1 F Blood Pressure: 167/85 Pulse: 60 Respirations: 20 Pulse Ox (%): 96 - Physical Exam General: Alert, In no apparent distress HEENT: Atraumatic, PERRLA, EOMI Neck: Supple, JVD not distended Respiratory: Clear to auscultation bilaterally, Normal air movement Cardiovascular: Regular rate/rhythm, Normal S1 S2 Gastrointestinal: Normal bowel sounds, No tenderness Musculoskeletal: No tenderness Integumentary: No rashes Neurological: Normal speech, Normal tone, Normal affect Lymphatics: No axilla or inguinal lymphadenopathy - Studies Medications List Reviewed: Yes Assessment And Plan - Plan A 53-year-old male with; Acute on chronic kidney injury, stage 5, now with dialysis catheter. Patient started dialysis 08/08/2018. Nephrology on board. He is pending set up for chair time for outpatient dialysis. Continue dialysis per nephro. Nephrology on board. Recommendations appreciated. Hypocalcemia. His calcium levels are improving. Calcium is being replaced. We will continue to monitor. Corrected calcium continues to be above 7. Hyperuricemia. Hypothyroidism. TSH above 160, now improved to 62. Continue on IV levothyroxine for now until TSH less than 50. Then will convert to PO Essential hypertension stable on home medications. DVT prophylaxis: Lovenox GI prophylaxis: None Diet: Renal Plan: survey worker consulted for setting up chair time for out outpatient dialysis, discharge pending outpatient dialysis chair time set up.
[2018-08-10] MEDS ORDERED: CALCITROL 0.25 MCG CAP PO SCH (11:00)
--- NOTE | 2018-08-10 15:13 | PN ---
Date of Progress Note: 08/10/2018 Subjective: The patient was admitted with symptomatic uremia. Renal failure progression of his dise ase. The patient was started on dialysis. This is his third session of dialysis. Tolerating well. Physical Examination: Vital Signs: When I saw the patient blood pressure 167/85, pulse of 60, afebrile. Chest: Clear to auscultation. Heart: S1 and S2, regular. Abdomen: Soft and nontender. Extremities: No edema. Laboratory Data: H and H 11.7/35.9, sodium 140, potassium 3.9, bicarb 27, BUN 40, creatinine 5.5, GF R of 11, calcium 7.9, phos 4.3, TSH of 62. PTH of 556. Serology still pending. Current Medications: The patient on its include calcium carbonate 1 g with each meal, atorvastatin, carvedilol 3.125 b.i.d., hydralazine p.r.n., Zofran, insulin, levothyroxine IV, calcitriol 0.5 daily. Assessment And Plan: 1.End-stage renal disease. We will continue the patient on dialysis. The patient is going to be sw itched to Wednesday, Wednesday, Wednesday from now on and we will follow up. 2.Hypertension, not controlled. I am going to go ahead and add KENAN inhibitor for the patient and we will follow up. 3.Diabetes, as by primary. 4.Hypothyroidism. Continue levothyroxine. We will consider switching to p.o. as by primary. 5.Anemia of chronic kidney disease, H and H. hemoglobin above 11. No need for SUMIT for the time susanna south MA/CASSIE Voice ID: [id number] Report ID: [id number]
[2018-08-10 19:21] LABS: Hepatitis C Virus RNA (PCR)log <1.18 log IU/mL
[2018-08-10] MEDS: ATORVASTATIN 10 MG TAB PO SCH (20:08)
[2018-08-11] MEDS: LEVOTHYROXINE SODIUM 100 MCG VIAL IV SCH (05:52)
[2018-08-11 05:58] LABS: Phosphorus 4.6 mg/dL (2.5-4.9); Potassium 3.9 mmol/L (3.5-5.1)
[2018-08-11] MEDS: INSULIN -REGULAR HUMAN 50 UNIT/0.5 ML ML SQ SCH ×4 (07:30→21:00)
[2018-08-11] MEDS ORDERED: LISINOPRIL 10 MG TAB PO SCH (09:00)
[2018-08-11] MEDS: CALCIUM CARBONATE CHEW 500MG TAB PO SCH ×3 (09:49→17:02)
[2018-08-11] MEDS: CARVEDILOL 3.125 MG TAB PO SCH (09:51)
[2018-08-11] MEDS: FUROSEMIDE 40 MG/4 ML VIAL IV SCH (09:51)
--- NOTE | 2018-08-11 14:19 | P.PN ---
Subjective Date of Service: 08/11/18 Chief Complaint: New ESRD Subjective: No C/O voiced Patient seen and examined at bedside. No family at bedside. Chart reviewed and case discussed with nursing staff. Patient admitted for new diagnosis of ESRD, now with HD catheter placement. He is doing well, states he has no complaints this am. No acute events noted overnight. Review of Systems 10-point ROS is otherwise unremarkable Physical Examination - Vital Signs Temperature: 97.8 F Blood Pressure: 193/92 Pulse: 62 Respirations: 18 Pulse Ox (%): 97 - Physical Exam General: Alert, In no apparent distress, Oriented x3 HEENT: Atraumatic, PERRLA, EOMI Neck: Supple, JVD not distended Respiratory: Clear to auscultation bilaterally, Normal air movement Cardiovascular: Regular rate/rhythm, Normal S1 S2 Gastrointestinal: Normal bowel sounds, No tenderness Musculoskeletal: No tenderness Integumentary: No rashes Neurological: Normal speech, Normal tone, Normal affect Lymphatics: No axilla or inguinal lymphadenopathy - Studies Medications List Reviewed: Yes Assessment And Plan - Plan A 53-year-old male with; Acute on chronic kidney injury, stage 5, now with dialysis catheter. Patient started dialysis 08/08/2018. Nephrology on board. He is pending set up for chair time for outpatient dialysis. Continue dialysis per nephro. Nephrology on board. Recommendations appreciated. Hypocalcemia. His calcium levels are improving. Calcium is being replaced. We will continue to monitor. Corrected calcium continues to be above 7. Hyperuricemia. Hypothyroidism. TSH above 160, now improved to 62. Pending TSH check tomorrow. Continue on IV levothyroxine for now until TSH less than 50. Then will convert to PO Essential hypertension stable on home medications. DVT prophylaxis: Lovenox GI prophylaxis: None Diet: Renal Plan: oyster bed worker consulted for setting up chair time for out outpatient dialysis, discharge pending outpatient dialysis chair time set up.
[2018-08-11] MEDS: ATORVASTATIN 10 MG TAB PO SCH (21:39)
[2018-08-11] MEDS: CARVEDILOL 6.25 MG TAB PO SCH (21:39)
--- NOTE | 2018-08-12 03:10 | PN ---
Date of Progress Note: 08/11/2018 Subjective: The patient was seen on dialysis. The patient tolerating dialysis. Physical Examination: Vital Signs: When I saw the patient, blood pressure of 162/85, pulse of 84, afebrile. Chest: Clear to auscultation. Heart: S1 and S2, regular. Abdomen: Soft, nontender. Extremities: No edema. Laboratory Data: H and H 11.7/35.9. Sodium 140, potassium 3.9, bicarb 29, BUN 36, creatinine 5, benjy cium 8.2, phos 4.6. Assessment And Plan: 1.End-stage renal disease. We will continue the patient on dialysis Wednesday, Wednesday, and Wednesday. 2.Secondary hyperparathyroidism with hypocalcemia. Hypocalcemia, resolved. Continue calcitriol and Tums. Phosphorus on the goal. 3.Hypertension, uncontrolled. I am going to go ahead and increase lisinopril, increase Coreg. We w ill keep challenge with the patient. 4.Diabetes, as by primary. 5.The patient waiting for setup as outpatient for dialysis, then the patient can be discharged. JESUS Voice ID: [id number] Report ID: [id number]
[2018-08-12] MEDS: LEVOTHYROXINE SODIUM 100 MCG VIAL IV SCH (04:57)
[2018-08-12 05:41] LABS: Phosphorus 5.3 mg/dL (2.5-4.9); Potassium 3.9 mmol/L (3.5-5.1)
[2018-08-12 05:44] LABS: Thyroid Stimulating Hormone 56.7 uIU/mL (0.360-3.740)
[2018-08-12] MEDS: INSULIN -REGULAR HUMAN 50 UNIT/0.5 ML ML SQ SCH ×4 (07:30→21:00)
[2018-08-12] MEDS: CALCIUM CARBONATE CHEW 500MG TAB PO SCH ×3 (07:30→17:53)
[2018-08-12] MEDS: FUROSEMIDE 40 MG TABLET PO SCH (07:51)
[2018-08-12] MEDS: LISINOPRIL 20 MG TAB PO SCH (07:51)
[2018-08-12] MEDS: CARVEDILOL 6.25 MG TAB PO SCH ×2 (07:51→21:29)
[2018-08-12] MEDS: CALCITROL 0.25 MCG CAP PO SCH (07:52)
--- NOTE | 2018-08-12 13:37 | P.PN ---
Subjective Date of Service: 08/12/18 Chief Complaint: New ESRD Subjective: No new changes Pt with ESRD due to DM started on HD HD today waiting for OP dialysis arrangement Physical Examination - Vital Signs Temperature: 97.6 F Blood Pressure: 194/89 Pulse: 57 Respirations: 16 Pulse Ox (%): 96 - Physical Exam General: In no apparent distress, Oriented x3 HEENT: Atraumatic Neck: Supple, Without JVD or thyroid abnormality Respiratory: Clear to auscultation bilaterally, Normal air movement Cardiovascular: No edema, Regular rate/rhythm, Normal S1 S2, No rubs, No murmurs Gastrointestinal: Normal bowel sounds Integumentary: No rashes - Studies Medications List Reviewed: Yes Assessment And Plan - Current Problems (Diagnosis) (1) ESRD (end stage renal disease) on dialysis Current Visit: Yes Status: Acute - Plan End-stage renal disease. initiated on HD this admission waiting for OP dialysis arrangement Anemia Hb >11 no need for SUMIT MBD corrected CA wnl cont binders DM as per PCP HTN controlled
--- NOTE | 2018-08-12 14:10 | P.PN ---
Subjective Date of Service: 08/12/18 Chief Complaint: New ESRD Subjective: No C/O voiced Patient seen and examined at bedside. No family at bedside. Chart reviewed and case discussed with nursing staff. Patient admitted for new diagnosis of ESRD, now with HD catheter placement. He is doing well, states he has no complaints this am. No acute events noted overnight. Review of Systems 10-point ROS is otherwise unremarkable Physical Examination - Vital Signs Temperature: 97.6 F Blood Pressure: 194/89 Pulse: 57 Respirations: 16 Pulse Ox (%): 96 - Physical Exam General: Alert, In no apparent distress, Oriented x3 HEENT: Atraumatic, PERRLA, EOMI Neck: Supple, JVD not distended Respiratory: Clear to auscultation bilaterally, Normal air movement Cardiovascular: Regular rate/rhythm, Normal S1 S2 Gastrointestinal: Normal bowel sounds, No tenderness Musculoskeletal: No tenderness Integumentary: No rashes Neurological: Normal speech, Normal tone, Normal affect Lymphatics: No axilla or inguinal lymphadenopathy - Studies Medications List Reviewed: Yes Assessment And Plan - Plan A 53-year-old male with; Acute on chronic kidney injury, stage 5, now with dialysis catheter. Patient started dialysis 08/08/2018. Nephrology on board. He is pending set up for chair time for outpatient dialysis. Continue dialysis per nephro. Nephrology on board. Recommendations appreciated. Hypocalcemia. His calcium levels are improving. Calcium is being replaced. We will continue to monitor. Corrected calcium continues to be above 7. Hyperuricemia. Hypothyroidism. TSH above 160, now improved to 62. Pending TSH check tomorrow. Continue on IV levothyroxine for now until TSH less than 50. Then will convert to PO Essential hypertension stable on home medications. DVT prophylaxis: Lovenox GI prophylaxis: None Diet: Renal Plan: respite worker consulted for setting up chair time for out outpatient dialysis, discharge pending outpatient dialysis chair time set up.
[2018-08-12] MEDS: HYDRALAZINE HCL 20 MG/ML VIAL IV PRN (17:57)
[2018-08-12] MEDS: ATORVASTATIN 10 MG TAB PO SCH (21:29)
[2018-08-12 22:05] LABS: Vitamin D 1,25-Dihydroxy Total 19 pg/mL (18-72); Vitamin D,1,25-OH2, D2 <8 pg/mL
[2018-08-13 03:59] LABS: HBsAG Nonreactive (Nonreactive)
[2018-08-13] MEDS: LEVOTHYROXINE SODIUM 100 MCG VIAL IV SCH (06:21)
[2018-08-13 07:27] LABS: Thyroid Stimulating Hormone 47.1 uIU/mL (0.360-3.740)
[2018-08-13] MEDS: CALCIUM CARBONATE CHEW 500MG TAB PO SCH ×3 (07:30→17:29)
[2018-08-13] MEDS: INSULIN -REGULAR HUMAN 50 UNIT/0.5 ML ML SQ SCH ×4 (07:30→21:00)
[2018-08-13] MEDS: LISINOPRIL 20 MG TAB PO SCH (08:49)
[2018-08-13] MEDS: CARVEDILOL 6.25 MG TAB PO SCH ×2 (08:49→21:07)
[2018-08-13] MEDS: FUROSEMIDE 40 MG TABLET PO SCH (08:50)
--- NOTE | 2018-08-13 16:13 | PN ---
Date of Progress Note: 08/13/2018 Chief Complaint: End-stage renal disease, new onset. Subjective: The patient is initiated on hemodialysis. He received dialysis yesterday for metabolic clearance and ultrafiltration. Blood pressure is uncontrolled and fluctuating. The patient is on mu ltiple blood pressure medications and the patient developed some fluid overload and received ultrafil tration with dialysis. The patient is on a renal diet with low sodium and low potassium diet. Elect rolytes are controlled. The patient has renal osteodystrophy and he is on binders to control phospho rhona level and corrected calcium is within normal limits. The patient has diabetic nephropathy. He is on insulin for management of glycemia. Review of Systems: Denies fever, chills. Physical Examination: Lungs: Few crackles at bases. Heart: S1, S2. Abdomen: Soft, benign. Extremities: No edema. Impression And Plan: 1.End-stage renal disease. 2.Dialysis, on Wednesday. 3.Anemia. Currently, hemoglobin level is acceptable. Continue to monitor and hold SUMIT, if hemoglob in is greater than 11. 4.Hypertension, adjust blood pressure medication. We will continue low-sodium diet. 5.Renal osteodystrophy, monitor phosphorus level. Adjust binders accordingly. Continue low-phospho rhona diet. 6.Hypervolemia. Continue low-sodium diet and p.o. fluid restriction. Adjust ultrafiltration goal a ccording to the fluid balance. JULEE/NERYL Voice ID: [id number] Report ID: [id number]
[2018-08-13] MEDS: ATORVASTATIN 10 MG TAB PO SCH (21:07)
--- NOTE | 2018-08-13 22:30 | P.PN ---
Subjective Date of Service: 08/13/18 Chief Complaint: New ESRD Subjective: No C/O voiced Patient seen and examined at bedside. No family at bedside. Chart reviewed and case discussed with nursing staff. Patient admitted for new diagnosis of ESRD, now with HD catheter placement. He is doing well, states he has no complaints this am. No acute events noted overnight. Review of Systems 10-point ROS is otherwise unremarkable Physical Examination - Vital Signs Temperature: 97.8 F Blood Pressure: 159/77 Pulse: 53 Respirations: 16 Pulse Ox (%): 96 - Physical Exam General: Alert, In no apparent distress HEENT: Atraumatic, PERRLA, EOMI Neck: Supple, JVD not distended Respiratory: Clear to auscultation bilaterally, Normal air movement Cardiovascular: Regular rate/rhythm, Normal S1 S2 Gastrointestinal: Normal bowel sounds, No tenderness Musculoskeletal: No tenderness Integumentary: No rashes Neurological: Normal speech, Normal tone, Normal affect Lymphatics: No axilla or inguinal lymphadenopathy - Studies Medications List Reviewed: Yes Assessment And Plan - Plan A 53-year-old male with; Acute on chronic kidney injury, stage 5, now with dialysis catheter. Patient started dialysis 08/08/2018. Nephrology on board. He is pending set up for chair time for outpatient dialysis. Continue dialysis per nephro. Nephrology on board. Recommendations appreciated. Hypocalcemia. His calcium levels are improving. Calcium is being replaced. We will continue to monitor. Corrected calcium continues to be above 7. Hyperuricemia. Hypothyroidism. TSH above 160, now improved to 62. Pending TSH check tomorrow. Continue on IV levothyroxine for now until TSH less than 50. Then will convert to PO Essential hypertension stable on home medications. DVT prophylaxis: Lovenox GI prophylaxis: None Diet: Renal Plan: dry kiln worker consulted for setting up chair time for out outpatient dialysis, discharge pending outpatient dialysis chair time set up.
[2018-08-14] MEDS: SODIUM CHLORIDE 0.9% 10ML INJ IV PRN (05:52)
[2018-08-14] MEDS: LEVOTHYROXINE SODIUM 100 MCG VIAL IV SCH (05:52)
[2018-08-14] MEDS: INSULIN -REGULAR HUMAN 50 UNIT/0.5 ML ML SQ SCH ×4 (07:30→20:16)
[2018-08-14] MEDS: CALCIUM CARBONATE CHEW 500MG TAB PO SCH ×3 (08:38→16:06)
[2018-08-14] MEDS: LISINOPRIL 20 MG TAB PO SCH (08:38)
[2018-08-14] MEDS: CARVEDILOL 6.25 MG TAB PO SCH ×2 (08:38→20:15)
[2018-08-14] MEDS: FUROSEMIDE 40 MG TABLET PO SCH (08:39)
[2018-08-14] MEDS: CALCITROL 0.25 MCG CAP PO SCH (08:39)
--- NOTE | 2018-08-14 14:48 | P.PN ---
Subjective Date of Service: 08/14/18 Chief Complaint: New ESRD Subjective: No C/O voiced, Improving Patient seen and examined at bedside. No family at bedside. Chart reviewed and case discussed with nursing staff. Patient admitted for new diagnosis of ESRD, now with HD catheter placement. He is doing well, states he has no complaints this am. No acute events noted overnight. Review of Systems 10-point ROS is otherwise unremarkable Physical Examination - Vital Signs Temperature: 97.9 F Blood Pressure: 188/86 Pulse: 50 Respirations: 16 Pulse Ox (%): 96 - Physical Exam General: Alert, In no apparent distress, Oriented x3 HEENT: Atraumatic, PERRLA, EOMI Neck: Supple, JVD not distended Respiratory: Clear to auscultation bilaterally, Normal air movement Cardiovascular: Regular rate/rhythm, Normal S1 S2 Gastrointestinal: Normal bowel sounds, No tenderness Musculoskeletal: No tenderness Integumentary: No rashes Neurological: Normal speech, Normal tone, Normal affect Lymphatics: No axilla or inguinal lymphadenopathy - Studies Medications List Reviewed: Yes Assessment And Plan - Plan A 53-year-old male with; Acute on chronic kidney injury, stage 5, now with dialysis catheter. Patient started dialysis 08/08/2018. Nephrology on board. He is pending set up for chair time for outpatient dialysis. Continue dialysis per nephro. Nephrology on board. Recommendations appreciated. Hypocalcemia. His calcium levels are improving. Calcium is being replaced. We will continue to monitor. Corrected calcium continues to be above 7. Hyperuricemia. Hypothyroidism. TSH above 160, now improved to 62. Pending TSH check tomorrow. Continue on IV levothyroxine for now until TSH less than 50. Then will convert to PO Essential hypertension stable on home medications. DVT prophylaxis: Lovenox GI prophylaxis: None Diet: Renal Plan: blow off worker consulted for setting up chair time for out outpatient dialysis, discharge pending outpatient dialysis chair time set up.
[2018-08-14] MEDS: ATORVASTATIN 10 MG TAB PO SCH (20:15)
--- NOTE | 2018-08-15 02:31 | PN ---
Date of Progress Note: 08/14/2018 Chief Complaint: End-stage renal disease, new onset. The patient is dialysis-dependent, was initiat ed on dialysis during this admission. The patient has multiple medical problems including history of hypertension. Blood pressure is in ac ceptable control. The patient is on renal diet with sodium restriction and low-potassium diet. Electrolytes are contro lled. Review of Systems: Denies fever, chills. Physical Examination: Lungs: Clear to auscultation bilaterally. Heart: S1, S2. Abdomen: Soft, benign. Extremities: Slight edema. Impression And Plan: 1.Mild fluid overload. Continue dialysis. Next treatment tomorrow with ultrafiltration. Advance ul trafiltration to control volemia. Address ultrafiltration goal to prevent intradialytic hypotension. 2.Hypertension. Medication adjusted. Continue current treatment and low-sodium diet. 3.Hypervolemia. The patient is on p.o. fluid restriction. Ultrafiltration will be done to control volemic status. EB/MODL Voice ID: [id number] Report ID: [id number]
[2018-08-15] MEDS: LEVOTHYROXINE SOD 0.075 MG TAB PO SCH (05:36)
[2018-08-15 06:11] LABS: Absolute Lymphocytes (CBC) 1.8 K/uL (0.7-4.9); Absolute Monocytes 0.4 K/uL (0.1-1.3); Absolute Neutrophil 5.8 K/uL (1.8-8.0); Basophils % 1.1 % (0-1.3); Eosinophils % 3.3 % (0-4.4); Hematocrit 38.4 % (39.6-49.0); Lymphocytes % 21.3 % (15.3-44.8); MPV 8.6 fL (7.6-11.3); Monocytes % 4.7 % (3.3-12.3); RBC Red Blood Cell Count 4.22 M/uL (4.33-5.43)
[2018-08-15 06:33] LABS: Potassium 4.4 mmol/L (3.5-5.1)
[2018-08-15] MEDS: INSULIN -REGULAR HUMAN 50 UNIT/0.5 ML ML SQ SCH ×4 (07:30→20:22)
[2018-08-15] MEDS: CARVEDILOL 6.25 MG TAB PO SCH ×2 (08:48→20:22)
[2018-08-15] MEDS: CALCIUM CARBONATE CHEW 500MG TAB PO SCH ×3 (08:48→16:10)
[2018-08-15] MEDS: LISINOPRIL 20 MG TAB PO SCH (08:49)
[2018-08-15] MEDS: FUROSEMIDE 40 MG TABLET PO SCH (08:49)
[2018-08-15] MEDS ORDERED: ALTEPLASE 2 MG/VIAL IV ONE (11:15)
--- NOTE | 2018-08-15 16:45 | P.PN ---
Subjective Date of Service: 08/15/18 Chief Complaint: New ESRD Subjective: No C/O voiced Patient seen and examined at bedside. No family at bedside. Chart reviewed and case discussed with nursing staff. Patient admitted for new diagnosis of ESRD, now with HD catheter placement. He is doing well, states he has no complaints this am. No acute events noted overnight. Review of Systems 10-point ROS is otherwise unremarkable Physical Examination - Vital Signs Temperature: 98 F Blood Pressure: 141/72 Pulse: 52 Respirations: 18 Pulse Ox (%): 97 - Physical Exam General: Alert, In no apparent distress HEENT: Atraumatic, PERRLA, EOMI Neck: Supple, JVD not distended Respiratory: Clear to auscultation bilaterally, Normal air movement Cardiovascular: Regular rate/rhythm, Normal S1 S2 Gastrointestinal: Normal bowel sounds, No tenderness Musculoskeletal: No tenderness Integumentary: No rashes Neurological: Normal speech, Normal tone, Normal affect Lymphatics: No axilla or inguinal lymphadenopathy - Studies Medications List Reviewed: Yes Assessment And Plan - Plan A 53-year-old male with; Acute on chronic kidney injury, stage 5, now with dialysis catheter. Patient started dialysis 08/08/2018. Nephrology on board. He is pending set up for chair time for outpatient dialysis. Continue dialysis per nephro. Nephrology on board. Recommendations appreciated. Hypocalcemia. His calcium levels are improving. Calcium is being replaced. We will continue to monitor. Corrected calcium continues to be above 7. Hyperuricemia. Hypothyroidism. TSH above 160, now improved to 62. Pending TSH check tomorrow. Continue on IV levothyroxine for now until TSH less than 50. Then will convert to PO Essential hypertension stable on home medications. DVT prophylaxis: Lovenox GI prophylaxis: None Diet: Renal Plan: The patient has been medically stable. Discharge has been pending outpatient dialysis chair time set up. kitchen worker on board.
[2018-08-15] MEDS: ATORVASTATIN 10 MG TAB PO SCH (20:22)
--- NOTE | 2018-08-16 03:59 | PN ---
Date of Progress Note: 08/15/2018 Chief Complaint: End-stage renal disease, new onset. The patient is dialysis dependent, but then berta colin was initiated on dialysis during this admission. The patient has multiple medical problems including history of hypertension, blood pressure is in acc eptable control. The patient is on renal diet with sodium restriction and low-potassium diet. His e lectrolytes are controlled. Review of Systems: Denies fever, chills, nausea, vomiting, diarrhea. Physical Examination: Lungs: Clear to auscultation bilaterally. Heart: S1, S2. Abdomen: Soft, benign. Extremities: Slight edema. Impression And Plan: 1.Mild fluid overload. Continue dialysis today. Dialysis with ultrafiltration. Blood pr essure is in acceptable control. Monitor blood pressure during dialysis. Adjust ultrafiltration goa l to prevent intradialytic hypotension. 2.Hypertension. Blood pressure stable during dialysis. 3.Mild hypervolemia. Continue p.o. fluid restriction and adjust treatment with dialysis. 4.Renal osteodystrophy. Monitor phosphorus level and calcium level. Adjust binders accordingly. 5.Anemia of chronic kidney disease. Monitor hemoglobin level and adjust SUMIT. EB/MODL Voice ID: [id number] Report ID: [id number]
[2018-08-16] MEDS: LEVOTHYROXINE SOD 0.075 MG TAB PO SCH (06:10)
[2018-08-16] MEDS: INSULIN -REGULAR HUMAN 50 UNIT/0.5 ML ML SQ SCH ×4 (07:30→22:35)
[2018-08-16] MEDS: CALCIUM CARBONATE CHEW 500MG TAB PO SCH ×3 (07:56→16:46)
[2018-08-16] MEDS: LISINOPRIL 20 MG TAB PO SCH (07:57)
[2018-08-16] MEDS: CARVEDILOL 6.25 MG TAB PO SCH ×2 (07:57→22:35)
[2018-08-16] MEDS: FUROSEMIDE 40 MG TABLET PO SCH (07:57)
[2018-08-16] MEDS: CALCITROL 0.25 MCG CAP PO SCH (07:57)
--- NOTE | 2018-08-16 10:27 | P.PN ---
Subjective Date of Service: 08/16/18 Chief Complaint: New ESRD Subjective: No new changes Pt with ESRD due to DM pt will cont dialysis as an OP can be discharged from nephrology point of view Physical Examination - Vital Signs Temperature: 97.0 F Blood Pressure: 132/77 Pulse: 50 Respirations: 16 Pulse Ox (%): 97 - Physical Exam General: In no apparent distress, Oriented x3 HEENT: Atraumatic Neck: Supple, Without JVD or thyroid abnormality Respiratory: Clear to auscultation bilaterally, Normal air movement Cardiovascular: No edema, Regular rate/rhythm, Normal S1 S2 Gastrointestinal: Normal bowel sounds Musculoskeletal: No swelling Integumentary: No rashes - Studies Medications List Reviewed: Yes Assessment And Plan - Current Problems (Diagnosis) (1) ESRD (end stage renal disease) on dialysis Current Visit: Yes Status: Acute - Plan End-stage renal disease. initiated on HD this admission Have OP dialysis chair time cleared for discharged from nephrology point of view Anemia Hb >11 no need for SUMIT MBD corrected CA wnl cont binders DM as per PCP HTN controlled
--- NOTE | 2018-08-16 14:35 | PN ---
Date of Progress Note: 08/16/2018 Subjective: The patient seen and examined. Chart reviewed and case discussed with RN. The patient still awaiting chair time. No significant complaints. Medications: List reviewed. Physical Examination: Vital Signs: Temperature 97, heart rate 51, blood pressure 132/77, respirations 16, O2 97% on room a ir. General: Awake, alert, oriented x3. No acute distress. CV: S1, S2. Regular rate and rhythm. Peripheral pulses present. Respiratory: Moving air well bilaterally. No wheezing or stridor. Gastrointestinal: Abdomen is soft, nontender, nondistended. Positive bowel sounds. No guarding or rigidity. Extremities: No clubbing, cyanosis, or edema. Neurologic: Nonfocal. Cranial nerves 2 through 12 intact grossly. No focal neurological deficit. Laboratory Data: Labs are pending. Status panel nonreactive. Assessment And Plan: 1.Uearo-rc-gaizpdw kidney injury stage 5, currently with dialysis catheter and on dialysis. Awaitin g chair time for outpatient dialysis. Nephrology on board. 2.Hypocalcemia. We will continue to replace and monitor. 3.Hyperuricemia. 4.Hypothyroidism. TSH currently down to 47 from the 13th. The patient now on p.o. levothyroxine. 5.Essential hypertension, stable. 6.Deep vein thrombosis prophylaxis with Lovenox. Plan: Discharge once outpatient dialysis chair time has been set up. /CASSIE Voice ID: [id number] Report ID: [id number]
[2018-08-16] MEDS: ATORVASTATIN 10 MG TAB PO SCH (22:34)
[2018-08-17] MEDS: LEVOTHYROXINE SOD 0.075 MG TAB PO SCH (06:04)
[2018-08-17 06:29] LABS: Absolute Lymphocytes (CBC) 2.3 K/uL (0.7-4.9); Absolute Monocytes 0.6 K/uL (0.1-1.3); Absolute Neutrophil 6.4 K/uL (1.8-8.0); Basophils % 1.1 % (0-1.3); Eosinophils % 2.5 % (0-4.4); Hematocrit 37.9 % (39.6-49.0); Lymphocytes % 24.2 % (15.3-44.8); MPV 8.9 fL (7.6-11.3); RBC Red Blood Cell Count 4.13 M/uL (4.33-5.43)
[2018-08-17 06:43] LABS: Albumin 3.2 g/dL (3.4-5.0); Bilirubin Total 0.2 mg/dL (0.2-1.0)
[2018-08-17] MEDS: INSULIN -REGULAR HUMAN 50 UNIT/0.5 ML ML SQ SCH ×4 (07:30→20:31)
[2018-08-17] MEDS: FUROSEMIDE 40 MG TABLET PO SCH (09:29)
[2018-08-17] MEDS: LISINOPRIL 20 MG TAB PO SCH ×2 (09:29→20:29)
[2018-08-17] MEDS: CALCIUM CARBONATE CHEW 500MG TAB PO SCH ×3 (09:30→15:54)
[2018-08-17] MEDS: CARVEDILOL 6.25 MG TAB PO SCH ×2 (09:30→20:29)
--- NOTE | 2018-08-17 13:27 | DS ---
Date of Discharge: 08/16/2018 Consultants: Dr. Boss, Dr. Yang, and Dr. Davies with Nephrology as well as Dr. Flores with General Surgery. Procedures: On 08/07/2018, hemodialysis catheter placement. Admitting Diagnoses: 1.Acute on chronic kidney injury stage 5. 2.Hypocalcemia. 3.Hyperuricemia. 4.Hypothyroidism. 5.Essential hypertension. Discharge Diagnoses: 1.Acute on chronic kidney injury stage 5, started on dialysis. 2.Hypocalcemia, improving. 3.Hyperuricemia. 4.Hypothyroidism, TSH improved, now on p.o. levothyroxine. 5.Essential hypertension, stable. Hospital Course: The patient is a 53-year-old male with history of hypertension, chronic kidney dise ase, comes in with generalized malaise and abnormal labs, admitted from Dr. Boss for chronic kidn ey dysfunction to be started on dialysis. Dr. Flores's was consulted and the patient had HemoSplit catheter placed and the patient was started on dialysis. The patient tolerated the procedure well. He tolerated hemodialysis well. His electrolytes improved. The patient did have elevated TSH above 90 and was therefore started on IV levothyroxine until TSH got below 50. He was then switched over to p.o. Overall, patient did well. He was then being set up for outpatient hemodialysis and had to wait until chair time was set up. Hepatitis panel came back negative as well. The patient was then cleared for discharge from new vehicle sales consultant's standpoint once his chair time was set up. Medications: As per medication reconciliation list. Followup: Follow up with primary care physician in 2-3 days. Follow up with Dr. Boss, nephrolog ist in 2 weeks. Return to ER for worsening condition. Diet: Renal. Activity: As tolerated. Discharge Physical Examination: For physical exam findings please see progress note dictated on day of discharge. Total time spent discharging the patient was 37 minutes. /CASSIE Voice ID: [id number] Report ID: [id number]
--- NOTE | 2018-08-17 17:18 | PN ---
Date of Progress Note: 08/17/2018 Subjective: The patient was initiated on dialysis. The patient tolerated the dialysis. Physical Examination: Vital Signs: Blood pressure 165/79, pulse of 52. The patient still has good urine output. Chest: Clear to auscultation. Heart: S1, S2. Regular. Abdomen: Soft and nontender. Extremities: Trace edema. Laboratory Data: WBC 9.7, H and H of 12.6/37.9, platelets 282. Sodium 142, potassium 5, bicarb 26, BUN 65, creatinine 6.7, calcium 8.5. Current Medications: The patient on include 1.Atorvastatin. 2.Carvedilol 6.25 twice daily. 3.Lisinopril 20 daily. 4.Lasix. 5.Zofran. 6.Levothyroxine. Assessment And Plan: 1.End-stage renal disease. We will continue the patient on dialysis. The patient mostly is going t o be as outpatient on Wednesday, schedule, so I am going to go ahead and do dialysis tomorrow. We will skip the dialysis today. 2.Hypertension, controlled, not optimal. I am going to go ahead and increase his Lasix to 80 mg, in crease lisinopril to b.i.d. and we will follow up. 3.Secondary hyperparathyroidism, respond very well to current treatment. Continue Tums and calcitri ol. 4.Hyperlipidemia. Continue current treatment. 5.Diabetes as by primary. 6.Acidosis stable. This has resolved with dialysis. JESUS Voice ID: [id number] Report ID: [id number]
--- NOTE | 2018-08-17 19:48 | PN ---
Date of Progress Note: 08/17/2018 Subjective: The patient is seen and examined, chart reviewed and case discussed with RN and Dr. Annamarie miner. The patient is still awaiting chair time for outpatient dialysis. No complaints. Medications: List reviewed. Objective: Vital Signs: Temperature 97.2, heart rate 62, blood pressure 165/79, respirations 16, O2 99% on room air. General: Awake, alert, oriented x3. No acute distress. CV: S1, S2. Regular rate and rhythm. Peripheral pulses present. Respiratory: Moving air well bilaterally. No wheezing or stridor. Gastrointestinal: Abdomen is soft, nontender, nondistended. Positive bowel sounds. Extremities: No clubbing, cyanosis, or edema. Neurologic: Nonfocal. Laboratory Data: Sodium 142, potassium 5, chloride 107, CO2 26, BUN 65, creatinine 6.74, glucose 91, calcium 8.5. WBC 9.7, H and H 12.6 and 37.9, platelets 282. Assessment And Plan: A 53-year-old male with: 1.Acute on chronic kidney injury stage 5, currently started on dialysis. [facility] Appreciate Dr. Boss's input. 2.Hypothyroidism. TSH has improved. We will continue to monitor. He will need repeat TSH level in the next 4-6 weeks. Now on p.o. levothyroxine. 3.Hypocalcemia, corrected. We will continue replacement. 4.Essential hypertension. 5.Deep venous thrombosis prophylaxis with Lovenox renally dosed. 6.DC once the chair time has been established. /CASSIE Voice ID: [id number] Report ID: [id number]
[2018-08-17] MEDS: ATORVASTATIN 10 MG TAB PO SCH (20:29)
[2018-08-18] MEDS: LEVOTHYROXINE SOD 0.075 MG TAB PO SCH (05:09)
[2018-08-18 06:19] LABS: Absolute Lymphocytes (CBC) 1.9 K/uL (0.7-4.9); Absolute Monocytes 0.5 K/uL (0.1-1.3); Absolute Neutrophil 5.7 K/uL (1.8-8.0); Basophils % 1.1 % (0-1.3); Eosinophils % 2.7 % (0-4.4); Hematocrit 37.1 % (39.6-49.0); Lymphocytes % 22.4 % (15.3-44.8); Monocytes % 6.3 % (3.3-12.3); RBC Red Blood Cell Count 4.06 M/uL (4.33-5.43)
[2018-08-18 06:49] LABS: Albumin 3.4 g/dL (3.4-5.0); Bilirubin Total 0.3 mg/dL (0.2-1.0); Protein, Total 7.3 g/dL (6.4-8.2)
[2018-08-18] MEDS: INSULIN -REGULAR HUMAN 50 UNIT/0.5 ML ML SQ SCH ×4 (07:30→20:27)
[2018-08-18] MEDS: LISINOPRIL 20 MG TAB PO SCH ×2 (08:02→20:27)
[2018-08-18] MEDS: CARVEDILOL 6.25 MG TAB PO SCH ×2 (08:02→20:28)
[2018-08-18] MEDS: CALCITROL 0.25 MCG CAP PO SCH (08:02)
[2018-08-18] MEDS: CALCIUM CARBONATE CHEW 500MG TAB PO SCH ×3 (08:03→16:29)
[2018-08-18] MEDS ORDERED: FUROSEMIDE 40 MG TABLET PO SCH (09:00)
--- NOTE | 2018-08-18 11:57 | P.PN ---
Subjective Date of Service: 08/18/18 Chief Complaint: New ESRD Subjective: No new changes Pt with ESRD due to DM HD today waiting for outpatient dialysis arrangement Physical Examination - Vital Signs Temperature: 97.1 F Blood Pressure: 123/71 Pulse: 55 Respirations: 15 Pulse Ox (%): 96 - Physical Exam General: In no apparent distress, Oriented x3 HEENT: Atraumatic Neck: Supple, Without JVD or thyroid abnormality Respiratory: Clear to auscultation bilaterally Cardiovascular: No edema, Regular rate/rhythm Gastrointestinal: Normal bowel sounds Integumentary: No rashes - Studies Medications List Reviewed: Yes Assessment And Plan - Current Problems (Diagnosis) (1) ESRD (end stage renal disease) on dialysis Current Visit: Yes Status: Acute - Plan End-stage renal disease. initiated on HD this admission waiting for out patient dialysis arrangement Anemia Hb >11 no need for SUMIT MBD corrected CA wnl cont binders DM as per PCP HTN controlled
[2018-08-18] MEDS: ATORVASTATIN 10 MG TAB PO SCH (20:26)
--- NOTE | 2018-08-19 03:19 | DS ---
Date of Discharge: 08/18/2018 Consultants: Dr. Flores with General Surgery, Dr. Boss with Nephrology. Procedure: On 08/07/2018, HemoSplit dialysis catheter tunneled catheter placement. Admitting Diagnoses: 1.Acute on chronic kidney injury, stage 5. 2.Hypocalcemia. 3.Hyperuricemia. 4.Hypothyroidism, uncontrolled. 5.Essential hypertension. Discharge Diagnoses: 1.Acute on chronic kidney disease, stage 5, currently on dialysis, tolerating well. 2.Hypothyroidism. TSH improved. 3.Hypocalcemia, corrected. 4.Essential hypertension, stable. Hospital Course: The patient is a 53-year-old male with past medical history of hypertension, chroni c kidney disease, hypothyroidism, comes in with generalized malaise and found to have abnormal labs. The patient's kidney function has been progressively deteriorating, currently at stage 5. Nephrolog ist planned to initiate the patient on dialysis. He was admitted to the hospital for further workup and treatment. His creatinine was 7.77. Dr. Flores with General Surgery was consulted. Hemodialy sis catheter was placed and the patient was started on hemodialysis catheter. The patient was then s et up for chair time through [facility], however, took longer than usual due to verifying the patient's s tatus and insurance. There were some discrepancies regarding the situation. The patient also had an elevated TSH at 90. He was started on IV levothyroxine. His TSH was repeate d and he was switched over to p.o. levothyroxine once TSH was less than 50. The patient will need re peat TSH level in 4-6 weeks and to have his PCP adjust his dose. The patient overall did well. His electrolytes were corrected. He was tolerating dialysis well. The patient was then discharged home in a stable condition. Activity: As tolerated. Medications: As per medication reconciliation list. Followup: Follow up with primary care physician in 2 days. Follow up with traveling repair accountant, Dr. Mariann miles, in 2 weeks. Return to ER for worsening condition. Diet: Renal. Physical Examination: General: Awake, alert, oriented x3. No acute distress. CV: S1, S2. No murmurs. Respiratory: Moving air well bilaterally. Abdomen: Soft, nontender, nondistended. Positive bowel sounds. Extremities: No clubbing, cyanosis, or edema. Neurologic: Nonfocal. Total time spent discharging the patient was 33 minutes. /CASSIE Voice ID: [id number] Report ID: [id number]
== END 2018-08-18 21:11 | disposition home or self-care (01) | DRG 674 ==
LOC: ER 11:35 → ERHOLD 14:47 → 2ND 15:47
PROVIDERS: ADMIT Family Medicine; ATTEND Family Medicine
PROC: 05HM33Z Insertion of Infusion Device into Right Internal Jugular Vein, Percutaneous Approach (ICD-10-PCS; 2018-08-07)
PROC: B513YZA Fluoroscopy of Right Jugular Veins using Other Contrast, Guidance (ICD-10-PCS; 2018-08-07)
PROC: 0JH63XZ Insertion of Tunneled Vascular Access Device into Chest Subcutaneous Tissue and Fascia, Percutaneous Approach (ICD-10-PCS; principal; 2018-08-07 10:00)
PROC: 5A1D70Z Performance of Urinary Filtration, Intermittent, Less than 6 Hours Per Day (ICD-10-PCS; 2018-08-08)
PROC: 5A1D70Z Performance of Urinary Filtration, Intermittent, Less than 6 Hours Per Day (ICD-10-PCS; 2018-08-09)
PROC: 5A1D70Z Performance of Urinary Filtration, Intermittent, Less than 6 Hours Per Day (ICD-10-PCS; 2018-08-10)
PROC: 5A1D70Z Performance of Urinary Filtration, Intermittent, Less than 6 Hours Per Day (ICD-10-PCS; 2018-08-12)
PROC: 5A1D70Z Performance of Urinary Filtration, Intermittent, Less than 6 Hours Per Day (ICD-10-PCS; 2018-08-15)
PROC: 5A1D70Z Performance of Urinary Filtration, Intermittent, Less than 6 Hours Per Day (ICD-10-PCS; 2018-08-18)
DX: I12.0 Hypertensive chronic kidney disease with stage 5 chronic kidney disease or end stage renal disease (principal); N18.5 Chronic kidney disease, stage 5; N25.81 Secondary hyperparathyroidism of renal origin; E11.22 Type 2 diabetes mellitus with diabetic chronic kidney disease; Z99.2 Dependence on renal dialysis; Z79.4 Long term (current) use of insulin; E83.51 Hypocalcemia; E79.0 Hyperuricemia without signs of inflammatory arthritis and tophaceous disease; E03.9 Hypothyroidism, unspecified; F17.210 Nicotine dependence, cigarettes, uncomplicated; E11.40 Type 2 diabetes mellitus with diabetic neuropathy, unspecified; E11.21 Type 2 diabetes mellitus with diabetic nephropathy; R79.89 Other specified abnormal findings of blood chemistry; D63.1 Anemia in chronic kidney disease; E87.70 Fluid overload, unspecified; N25.0 Renal osteodystrophy; I95.3 Hypotension of hemodialysis
CPT/HCPCS: 36415; 71045; 76000; 80048; 80053; 80069; 80076; 81003; 82652; 82962; 83690; 83735; 83880; 83970; 84100; 84439; 84443; 84484; 84550; 85025; 85610; 86317; 86704; 86706; 87340; 87522; 90935; 93005; 94760; 99283; C1752; J0360; J0610; J0690; J1644; J1940; J2250; J2405; J2704; J2997; J7030

== ENCOUNTER 2018-11-09 15:03 | Emergency (ER) | payer MEDICAID, SELFPAY ==
--- OUTSIDE RECORDS SUMMARY | 2018-11-09 15:07 | XMS REPORT ---
:1965 [facility] Address [address] [place] [address] Dr. Demarco [address] [place] [id number] Care Team Providers Name Role Phone Unavailable Unavailable Unavailable Problems This patient has no known problems. Allergies, Adverse Reactions, Alerts This patient has no known allergies or adverse reactions. Medications This patient has no known medications.
[2018-11-09 16:22] LABS: Absolute Lymphocytes (CBC) 1.6 K/uL (0.7-4.9); Basophils % 1.2 % (0-1.3); Eosinophils % 1.7 % (0-4.4); Hematocrit 39.4 % (39.6-49.0); Lymphocytes % 21.2 % (15.3-44.8); MPV 8.9 fL (7.6-11.3); Monocytes % 5.4 % (3.3-12.3); RBC Red Blood Cell Count 4.17 M/uL (4.33-5.43)
[2018-11-09 16:24] LABS: Protime INR 0.95
[2018-11-09 16:45] LABS: ALT/SGPT 20 U/L (12-78); AST/SGOT 17 U/L (15-37); Albumin 4.4 g/dL (3.4-5.0); Alkaline Phosphatase 49 U/L (45-117); BUN Blood Urea Nitrogen 23 mg/dL (7-18); Bicarbonate 26 mmol/L (21-32); Bilirubin Direct 0.1 mg/dL (0-0.2); Bilirubin Total 0.3 mg/dL (0.2-1.0); Glucose Level 111 mg/dL (74-106); Magnesium 2.1 mg/dL (1.8-2.4); NT PRO-BNP 405 pg/mL (<125); Potassium 3.3 mmol/L (3.5-5.1); Sodium Level 137 mmol/L (136-145); Troponin (Emerg Dept Use Only) < 0.02 ng/mL (0.0-0.045)
--- NOTE | 2018-11-09 17:02 | RAD REPORT ---
EXAM DESCRIPTION: Phil Single View11/09/2018 4:18 pm CLINICAL HISTORY: Bradycardia COMPARISON: August 2018 FINDINGS: The lungs appear clear of acute infiltrate. The heart is borderline enlarged. Central christiano ous line remains in place IMPRESSION: No acute abnormalities displayed
--- NOTE | 2018-11-09 17:18 | ER ---
Nurse's Notes [facility] Name: Alejandro Dunbar Age: 53 yrs Sex: Male : 1965 Arrival Date: 11/09/2018 Time: 15:08 Bed 5 Private MD: Diagnosis: Weakness;Bradycardia, unspecified Presentation: 11/09 15:11 Presenting complaint: Patient states: dialysis pt with MWF sched; went to have a hj dialysis today; after dialysis today, i started feeling weird, my pulse is low 48- 50; reports dizziness; reports lesser strength on bilateral upper arm and feels cold;. Transition of care: patient was not received from another setting of care. Onset of symptoms was November 09, 2018. Risk Assessment: Do you want to hurt yourself or someone else? Patient reports no desire to harm self or others. Initial Sepsis Screen: Does the patient meet any 2 criteria? No. Patient's initial sepsis screen is negative. Does the patient have a suspected source of infection? No. Patient's initial sepsis screen is negative. Care prior to arrival: None. 15:11 Method Of Arrival: Ambulatory 15:11 Acuity: KERRI 3 hj Historical: - Allergies: 15:15 No Known Allergies; hj - PMHx: 15:15 Diabetes - NIDDM; High Cholesterol; Hypertension; Hypothyroidism; Dialysis; hj - PSHx: 15:15 port; hj - Immunization history:: Adult Immunizations. - Social history:: Smoking status: . - Ebola Screening: : Patient denies travel to an Ebola-affected area in the 21 days before illness onset. Screenin:31 Abuse screen: Denies threats or abuse. Nutritional screening: No deficits noted. tw2 Tuberculosis screening: No symptoms or risk factors identified. Fall Risk None identified. Assessment: 15:17 General: Appears in no apparent distress. Behavior is calm. Pain: Denies pain. Neuro: tw2 Reports numbness in right hand and left hand. Cardiovascular: Reports "low heart rate" Denies chest pain, shortness of breath. Cardiovascular: Dialysis shunt: in the right upper chest. Respiratory: Airway is patent Respiratory effort is even, unlabored, Respiratory pattern is regular, symmetrical, Breath sounds are clear bilaterally. GI: Abdomen is round Bowel sounds present X 4 quads. : No signs and/or symptoms were reported regarding the genitourinary system. EENT: No signs and/or symptoms were reported regarding the EENT system. Derm: No signs and/or symptoms reported regarding the dermatologic system. Musculoskeletal: Range of motion: intact in all extremities. 16:11 Reassessment: Patient appears in no apparent distress at this time. No changes from tw2 previously documented assessment. Patient and/or family updated on plan of care and expected duration. Pain level reassessed. 18:05 Reassessment: Patient appears in no apparent distress at this time. No changes from tw2 previously documented assessment. Patient and/or family updated on plan of care and expected duration. Pain level reassessed. 18:11 Reassessment: Patient appears in no apparent distress at this time. No changes from tw2 previously documented assessment. Patient and/or family updated on plan of care and expected duration. Pain level reassessed. Vital Signs: 15:15 BP 180 / 99; Pulse 67; Resp 16; Temp 98.5(TE); Pulse Ox 100% on R/A; Weight 72.57 kg; Height 5 ft. 4 in. (162.56 cm); Pain 0/10; 15:30 BP 147 / 92; Pulse 62; Resp 12; Pulse Ox 98% on R/A; tw2 16:13 BP 157 / 94; Pulse 62; Resp 17; Pulse Ox 100% on R/A; tw2 17:41 BP 138 / 99; Pulse 56; Resp 16; Pulse Ox 97% on R/A; tw2 15:15 Body Mass Index 27.46 (72.57 kg, 162.56 cm) ED Course: 15:08 Patient arrived in ED. mr 15:14 Triage completed. hj 15:15 Arm band placed on right wrist. hj 15:17 Bed in low position. Call light in reach. hospital monitor on. Pulse ox on. NIBP on. tw2 15:30 Shelly Salinas, SANJAY is Primary Nurse. tw2 15:55 Sam Delarosa MD is Attending Physician. kdr 16:11 Inserted saline lock: 20 gauge in left forearm, using aseptic technique. Blood tw2 collected. 16:22 XRAY Chest (1 view) In Process Unspecified. EDMS 18:04 No provider procedures requiring assistance completed. IV discontinued, intact, tw2 bleeding controlled, No redness/swelling at site. Pressure dressing applied. Administered Medications: No medications were administered Outcome: 17:18 Discharge ordered by . kdr 18:05 Condition: stable tw2 18:11 Discharged to home ambulatory. tw2 18:11 Condition: stable 18:11 Discharge instructions given to patient, Instructed on discharge instructions, follow up and referral plans. medication usage, Demonstrated understanding of instructions, follow-up care, medications, Prescriptions given X 1. 18:12 Patient left the ED. tw2 Signatures: Dispatcher [employer] EDMS Sam Delarosa MD MD kdr Rivera, Mary Javier Gay, RN RN Shelly Mcduffie RN RN tw2 Corrections: (The following items were deleted from the chart) 15:17 15:15 Pulse 67bpm; Resp 16bpm; Pulse Ox 100% RA; Temp 98.5F Temporal; 72.57 kg; Height hj 5 ft. 4 in.; BMI: 27.4; Pain 0/10; hj 16:13 16:11 Reassessment: Patient appears in no apparent distress at this time. No changes tw2 from previously documented assessment. Patient and/or family updated on plan of care and expected duration. Pain level reassessed. Patient is alert, oriented x 3, equal unlabored respirations, skin warm/dry/pink. tw2
--- NOTE | 2018-11-09 17:19 | EDPHYS ---
Physician Documentation [facility] Name: Alejandro Dunbar Age: 53 yrs Sex: Male : 1965 Arrival Date: 11/09/2018 Time: 15:08 Bed 5 Private MD: ED Physician Sam Delarosa HPI: 11/09 18:02 This 53 yrs old Male presents to ER via Ambulatory with complaints of general kdr weakness, dizziness and bradycardia during and after dialysis - routinely. Historical: - Allergies: 15:15 No Known Allergies; hj - PMHx: 15:15 Diabetes - NIDDM; High Cholesterol; Hypertension; Hypothyroidism; Dialysis; hj - PSHx: 15:15 port; hj - Immunization history:: Adult Immunizations. - Social history:: Smoking status: . - Ebola Screening: : Patient denies travel to an Ebola-affected area in the 21 days before illness onset. ROS: 18:05 Constitutional: Negative for fever, chills, and weight loss, Eyes: Negative for injury, kdr pain, redness, and discharge, ENT: Negative for injury, pain, and discharge, Neck: Negative for injury, pain, and swelling, Respiratory: Negative for shortness of breath, cough, wheezing, and pleuritic chest pain, Abdomen/GI: Negative for abdominal pain, nausea, vomiting, diarrhea, and constipation, Back: Negative for injury and pain, : Negative for injury, bleeding, discharge, and swelling, MS/Extremity: Negative for injury and deformity, Skin: Negative for injury, rash, and discoloration, Psych: Negative for depression, anxiety, suicide ideation, homicidal ideation, and hallucinations, Allergy/Immunology: Negative for hives, rash, and allergies, Endocrine: Negative for neck swelling, polydipsia, polyuria, polyphagia, and marked weight changes, Hematologic/Lymphatic: Negative for swollen nodes, abnormal bleeding, and unusual bruising. 18:05 Cardiovascular: Positive for palpitations, Low heart rate. Exam: 18:06 Constitutional: This is a well developed, well nourished patient who is awake, alert, kdr and in no acute distress. Head/Face: Normocephalic, atraumatic. Eyes: Pupils equal round and reactive to light, extra-ocular motions intact. Lids and lashes normal. Conjunctiva and sclera are non-icteric and not injected. Cornea within normal limits. Periorbital areas with no swelling, redness, or edema. Neck: Trachea midline, no thyromegaly or masses palpated, and no cervical lymphadenopathy. Supple, full range of motion without nuchal rigidity, or vertebral point tenderness. No Meningismus. Chest/axilla: Normal chest wall appearance and motion. Nontender with no deformity. No lesions are appreciated. Respiratory: Lungs have equal breath sounds bilaterally, clear to auscultation and percussion. No rales, rhonchi or wheezes noted. No increased work of breathing, no retractions or nasal flaring. Abdomen/GI: Soft, non-tender, with normal bowel sounds. No distension or tympany. No guarding or rebound. No evidence of tenderness throughout. Back: No spinal tenderness. No costovertebral tenderness. Full range of motion. Skin: Warm, dry with normal turgor. Normal color with no rashes, no lesions, and no evidence of cellulitis. MS/ Extremity: Pulses equal, no cyanosis. Neurovascular intact. Full, normal range of motion. Neuro: Awake and alert, GCS 15, oriented to person, place, time, and situation. Cranial nerves II-XII grossly intact. Motor strength 5/5 in all extremities. Sensory grossly intact. Cerebellar exam normal. Normal gait. Psych: Awake, alert, with orientation to person, place and time. Behavior, mood, and affect are within normal limits. 18:06 Cardiovascular: Rate: normal, Rhythm: regular. Vital Signs: 15:15 BP 180 / 99; Pulse 67; Resp 16; Temp 98.5(TE); Pulse Ox 100% on R/A; Weight 72.57 kg; hj Height 5 ft. 4 in. (162.56 cm); Pain 0/10; 15:30 BP 147 / 92; Pulse 62; Resp 12; Pulse Ox 98% on R/A; tw2 16:13 BP 157 / 94; Pulse 62; Resp 17; Pulse Ox 100% on R/A; tw2 17:41 BP 138 / 99; Pulse 56; Resp 16; Pulse Ox 97% on R/A; tw2 15:15 Body Mass Index 27.46 (72.57 kg, 162.56 cm) MDM: 17:18 Patient medically screened. kdr 18:06 Data reviewed: vital signs, nurses notes, lab test result(s), radiologic studies. kdr Counseling: I had a detailed discussion with the patient and/or guardian regarding: the historical points, exam findings, and any diagnostic results supporting the discharge/admit diagnosis, lab results, radiology results, the need for outpatient follow up. 11/09 16: Order name: Basic Metabolic Panel; Complete Time: 17:[address] [facility] 11/09 16:01 Order name: CBC with Diff kdr 11/09 16: Order name: LFT's; Complete Time: 17:[address] [facility] 11/09 16:01 Order name: Magnesium; Complete Time: 17:[address] [facility] 11/09 16:01 Order name: NT PRO-BNP; Complete Time: 17:[address] [facility] 11/09 16:01 Order name: PT-INR [facility] 11/09 16: Order name: Troponin (emerg Dept Use Only); Complete Time: 17:[address] [facility] 11/09 16:01 Order name: XRAY Chest (1 view); Complete Time: 17:[address] [facility] 11/09 16: Order name: EKG; Complete Time: 16: [facility] 11/09 16:01 Order name: Cardiac monitoring; Complete Time: 16:[address] [facility] 11/09 16:01 Order name: EKG - Nurse/Tech; Complete Time: 16:[address] [facility] 11/09 16:01 Order name: IV Saline Lock; Complete Time: 16:[address] [facility] 11/09 16:01 Order name: Labs collected and sent; Complete Time: 16:[address] [facility] 11/09 16:01 Order name: O2 Per Protocol; Complete Time: 16:[address] [facility] 11/09 16:01 Order name: O2 Sat Monitoring; Complete Time: 16:03 kdr Administered Medications: No medications were administered Disposition: 11/09/18 17:18 Discharged to Home. Impression: Weakness, Bradycardia, unspecified. - Condition is Stable. - Discharge Instructions: Bradycardia, Adult, Muscle Cramps and Spasms, [id number], Weakness, [id number]. - Prescriptions for Cyclobenzaprine 5 mg Oral Tablet - take 1 tablet by ORAL route 3 times per day As needed; 15 tablet. - Medication Reconciliation Form, Thank You Letter form. - Follow up: Private Physician; When: 2 - 3 days; Reason: If symptoms return, Further diagnostic work-up, Recheck today's complaints, Continuance of care, Re-evaluation by your physician. - Problem is an acute exacerbation. - Symptoms have improved. Signatures: Dispatcher [employer] EDMS Sam Delarosa MD MD kdr Javier Gay RN RN Shelly Salinas RN RN tw2 Corrections: (The following items were deleted from the chart) 18:12 17:18 11/09/2018 17:18 Discharged to Home. Impression: Weakness; Bradycardia, tw2 unspecified. Condition is Stable. Forms are Medication Reconciliation Form, Thank You Letter, Antibiotic Education, Prescription Opioid Use. Follow up: Private Physician; When: 2 - 3 days; Reason: If symptoms return, Further diagnostic work-up, Recheck today's complaints, Continuance of care, Re-evaluation by your physician. Problem is an acute exacerbation. Symptoms have improved. kdr
--- NOTE | 2018-11-10 07:36 | EKG ---
Test Date: 2018-11-09 Test Time: 16:08:37 Bankruptcy Processor: ANGELO MEASUREMENT RESULTS: Intervals: Rate: 61 AR: 186 QRSD: 104 QT: 416 QTc: 418 [place]: P: 81 AR: 186 QRS: 37 T: 171 INTERPRETIVE STATEMENTS: Normal sinus rhythm ST & T wave abnormality, consider lateral ischemia Abnormal ECG Compared to ECG 08/06/2018 12:57:40 Possible ischemia now present Sinus bradycardia no longer present ST (T wave) deviation still present Electronically Signed On 11-10-18 07:35:45 CDT by James Benavides
== END 2018-11-09 18:12 | disposition home or self-care (01) ==
LOC: ER 15:03
DX: R00.1 Bradycardia, unspecified (principal); I10 Essential (primary) hypertension; Z99.2 Dependence on renal dialysis
CPT/HCPCS: 36415; 71045; 80048; 80076; 83735; 83880; 84484; 85025; 85610; 93005; 99284

== ENCOUNTER 2018-11-18 19:27 | Emergency (ER) | payer SELFPAY ==
--- OUTSIDE RECORDS SUMMARY | 2018-11-18 19:29 | XMS REPORT ---
:1965 [facility] Address [address] [place] [address] Dr. Demarco [address] [place] [id number] Care Team Providers Name Role Phone Unavailable Unavailable Unavailable Problems This patient has no known problems. Allergies, Adverse Reactions, Alerts This patient has no known allergies or adverse reactions. Medications This patient has no known medications.
[2018-11-18 20:28] LABS: Absolute Lymphocytes (CBC) 1.5 K/uL (0.7-4.9); Basophils % 1.3 % (0-1.3); Eosinophils % 1.3 % (0-4.4); Lymphocytes % 19.6 % (15.3-44.8); MPV 9.5 fL (7.6-11.3); RBC Red Blood Cell Count 3.97 M/uL (4.33-5.43)
[2018-11-18 20:29] LABS: Protime INR 0.96
--- NOTE | 2018-11-18 20:34 | RAD REPORT ---
EXAM DESCRIPTION: RAD - Chest Single View - 11/18/2018 8:27 pm CLINICAL HISTORY: dizzy, weak Chest pain. COMPARISON: Abdomen Pelvis W Contrast dated 10/05/2018No comparisonsChest Single View dated 9; Chest Single View dated 08/07/2018; Chest Single View dated 08/06/2018 FINDINGS: Portable technique limits examination quality. Mild linear subsegmental atelectasis is present in the left lung base. No focal infiltrate seen. The heart is normal in size. Right-sided venous catheter tip in the SVC.
[2018-11-18 20:42] LABS: ALT/SGPT 27 U/L (12-78); AST/SGOT 17 U/L (15-37); Albumin 4.3 g/dL (3.4-5.0); Alkaline Phosphatase 57 U/L (45-117); BUN Blood Urea Nitrogen 24 mg/dL (7-18); Bicarbonate 26 mmol/L (21-32); Bilirubin Direct 0.1 mg/dL (0-0.2); Bilirubin Total 0.3 mg/dL (0.2-1.0); Glucose Level 170 mg/dL (74-106); NT PRO-BNP 292 pg/mL (<125); Potassium 3.6 mmol/L (3.5-5.1); Protein, Total 8.8 g/dL (6.4-8.2); Sodium Level 134 mmol/L (136-145); Troponin (Emerg Dept Use Only) < 0.02 ng/mL (0.0-0.045)
--- NOTE | 2018-11-18 21:50 | EDPHYS ---
Physician Documentation [facility] Name: Alejandro Dunbar Age: 53 yrs Sex: Male : 1965 Arrival Date: 11/18/2018 Time: 19:32 Bed 13 Private MD: ED Physician Sam Delarosa HPI: 11/18 20:05 This 53 yrs old Male presents to ER via Ambulatory with complaints of legs and kdr arms cramping, Dizziness, Weakness. 20:05 The patient presents with dizziness, generalized weakness. Onset: The symptoms/episode kdr began/occurred gradually, 3 day(s) ago. Context: occurred at home, occurred while the patient was No known context. Modifying factors: The symptoms are alleviated by nothing, the symptoms are aggravated by nothing. Associated signs and symptoms: Pertinent positives: Generalized aches, cramps and dizziness. Severity of symptoms: At their worst the symptoms were mild in the emergency department the symptoms are unchanged. Patient's baseline: Neuro: alert and fully oriented, Motor: no deficits, Ambulation: walks without assistance, Speech: normal for age. The patient has experienced similar episodes in the past, several times. The patient has not recently seen a physician. Historical: - Allergies: 20:06 No Known Allergies; tr5 - PMHx: 20:06 Diabetes - NIDDM; Dialysis; High Cholesterol; Hypertension; Hypothyroidism; tr5 - Immunization history:: Adult Immunizations up to date. - Social history:: Smoking status: . - Ebola Screening: : Patient negative for fever greater than or equal to 101.5 degrees Fahrenheit, and additional compatible Ebola Virus Disease symptoms. ROS: 20:05 Constitutional: Negative for fever, chills, and weight loss, Eyes: Negative for injury, kdr pain, redness, and discharge, Neck: Negative for injury, pain, and swelling, Cardiovascular: Negative for chest pain, palpitations, and edema, Respiratory: Negative for shortness of breath, cough, wheezing, and pleuritic chest pain, Abdomen/GI: Negative for abdominal pain, nausea, vomiting, diarrhea, and constipation, Back: Negative for injury and pain, : Negative for injury, bleeding, discharge, and swelling, Skin: Negative for injury, rash, and discoloration, Psych: Negative for depression, anxiety, suicide ideation, homicidal ideation, and hallucinations, Allergy/Immunology: Negative for hives, rash, and allergies, Endocrine: Negative for neck swelling, polydipsia, polyuria, polyphagia, and marked weight changes, Hematologic/Lymphatic: Negative for swollen nodes, abnormal bleeding, and unusual bruising. 20:05 MS/extremity: Positive for Generalized cramps and weakness. 20:05 Neuro: Positive for dizziness, headache, FRANCOIS very minor, Negative for altered mental status, gait disturbance. Exam: 20:05 Constitutional: This is a well developed, well nourished patient who is awake, alert, kdr and in no acute distress. Head/Face: Normocephalic, atraumatic. Eyes: Pupils equal round and reactive to light, extra-ocular motions intact. Lids and lashes normal. Conjunctiva and sclera are non-icteric and not injected. Cornea within normal limits. Periorbital areas with no swelling, redness, or edema. Neck: Trachea midline, no thyromegaly or masses palpated, and no cervical lymphadenopathy. Supple, full range of motion without nuchal rigidity, or vertebral point tenderness. No Meningismus. Chest/axilla: Normal chest wall appearance and motion. Nontender with no deformity. No lesions are appreciated. There is a dialysis cath to the right anterior chest Cardiovascular: Regular rate and rhythm with a normal S1 and S2. No gallops, murmurs, or rubs. Normal PMI, no JVD. No pulse deficits. Respiratory: Lungs have equal breath sounds bilaterally, clear to auscultation and percussion. No rales, rhonchi or wheezes noted. No increased work of breathing, no retractions or nasal flaring. Abdomen/GI: Soft, non-tender, with normal bowel sounds. No distension or tympany. No guarding or rebound. No evidence of tenderness throughout. Back: No spinal tenderness. No costovertebral tenderness. Full range of motion. Skin: Warm, dry with normal turgor. Normal color with no rashes, no lesions, and no evidence of cellulitis. MS/ Extremity: Pulses equal, no cyanosis. Neurovascular intact. Full, normal range of motion. Neuro: Awake and alert, GCS 15, oriented to person, place, time, and situation. Cranial nerves II-XII grossly intact. Motor strength 5/5 in all extremities. Sensory grossly intact. Cerebellar exam normal. Normal gait. Psych: Awake, alert, with orientation to person, place and time. Behavior, mood, and affect are within normal limits. Vital Signs: 19:55 BP 148 / 98; Pulse 52; Resp 16; Temp 98(O); Pulse Ox 99% on R/A; aa1 20:30 BP 120 / 82; Pulse 52; Resp 14; Pulse Ox 97% on R/A; Pain 0/10; aa1 21:30 BP 135 / 86 Supine; Pulse 53; tr5 21:35 BP 142 / 89 Sitting; Pulse 52; tr5 21:38 BP 130 / 90 Standing; Pulse 57; tr5 MDM: 21:49 Patient medically screened. kdr 21:50 Data reviewed: vital signs, nurses notes, lab test result(s), radiologic studies. kdr Counseling: I had a detailed discussion with the patient and/or guardian regarding: the historical points, exam findings, and any diagnostic results supporting the discharge/admit diagnosis, lab results, radiology results, the need for outpatient follow up. 11/18 19:44 Order name: Basic Metabolic Panel [facility] 11/18 19:44 Order name: CBC with Diff [facility] 11/18 19:44 Order name: LFT's [facility] 11/18 19:44 Order name: Magnesium [facility] 11/18 19:44 Order name: NT PRO-BNP; Complete Time: 21:05 [facility] 11/18 19:44 Order name: PT-INR; Complete Time: 21:05 [facility] 11/18 19:44 Order name: Troponin (emerg Dept Use Only); Complete Time: 21:05 [facility] 11/18 19:44 Order name: XRAY Chest (1 view); Complete Time: 21:05 [facility] 11/18 19:44 Order name: EKG; Complete Time: 19:46 [facility] 11/18 19:44 Order name: Cardiac monitoring; Complete Time: 20:00 [facility] 11/18 19:45 Order name: Basic Metabolic Panel; Complete Time: 21:05 [facility] 11/18 19:45 Order name: CBC with Automated Diff; Complete Time: 21:05 [facility] 11/18 19:45 Order name: Liver (Hepatic) Function; Complete Time: 21:05 [facility] 11/18 19:45 Order name: Magnesium; Complete Time: 21:05 [facility] 11/18 19:44 Order name: EKG - Nurse/Tech; Complete Time: 19:59 [facility] 11/18 19:44 Order name: IV Saline Lock; Complete Time: 20: kdr 11/18 19:44 Order name: Labs collected and sent; Complete Time: 20: [facility] 11/18 19:44 Order name: O2 Per Protocol; Complete Time: :59 kdr 11/18 19:44 Order name: O2 Sat Monitoring; Complete Time: :59 kdr 11/18 21:13 Order name: Orthostatic Blood Pressure; Complete Time: 21:43 kdr Administered Medications: No medications were administered Disposition: 11/18/18 21:49 Discharged to Home. Impression: Cramp and spasm, Dizziness and giddiness. - Condition is Stable. - Discharge Instructions: Leg Cramps, Muscle Cramps and Spasms, [id number], Dizziness, [id number]. - Medication Reconciliation Form, Thank You Letter form. - Follow up: Private Physician; When: 2 - 3 days; Reason: If symptoms return, Further diagnostic work-up, Recheck today's complaints, Continuance of care, Re-evaluation by your physician. - Problem is an ongoing problem. - Symptoms are unchanged. Signatures: Dispatcher [employer] EDMS Sam Delarosa MD MD kdr Zaid Campbell RN RN tr5 Corrections: (The following items were deleted from the chart) 22:01 21:49 11/18/2018 21:49 Discharged to Home. Impression: Cramp and spasm; Dizziness and tr5 giddiness. Condition is Stable. Forms are Medication Reconciliation Form, Thank You Letter, Antibiotic Education, Prescription Opioid Use. Follow up: Private Physician; When: 2 - 3 days; Reason: If symptoms return, Further diagnostic work-up, Recheck today's complaints, Continuance of care, Re-evaluation by your physician. Problem is an ongoing problem. Symptoms are unchanged. kdr
--- NOTE | 2018-11-18 21:50 | ER ---
Nurse's Notes [facility] Name: Alejandro Dunbar Age: 53 yrs Sex: Male : 1965 Arrival Date: 11/18/2018 Time: 19:32 Bed 13 Private MD: Diagnosis: Cramp and spasm;Dizziness and giddiness Presentation: 11/18 19:55 Presenting complaint: Patient states: Pt states that he is a new dialysis patient and tr5 goes to dialysis MW, with the last time being this morning. For the last 2-3 days he has been having some numbness/tingling in his arms and legs. He says he is also having some nausea and dizziness. Pt checked his BP at home and says it has been in the 160's and his BG was 107. Transition of care: patient was not received from another setting of care. 19:55 Method Of Arrival: Ambulatory tr5 20:00 Onset of symptoms was November 18, 2018. Risk Assessment: Do you want to hurt yourself or tr5 someone else? Patient reports no desire to harm self or others. Initial Sepsis Screen: Does the patient meet any 2 criteria? No. Patient's initial sepsis screen is negative. Does the patient have a suspected source of infection? No. Patient's initial sepsis screen is negative. Care prior to arrival: None. 20:00 Acuity: KERRI 3 tr5 Triage Assessment: 20:02 General: Appears in no apparent distress. Behavior is calm, cooperative, appropriate tr5 for age. Pain: Denies pain. EENT: No deficits noted. 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 Neuro: Reports dizziness, since after dialysis numbness in right arm, left arm, right leg and left leg since Pt has experienced some numbness in extremities bilaterally since the last 2-3 days. Cardiovascular: Heart tones present Bruits absent Capillary refill < 3 seconds Pulses are all present. Edema is absent. Cardiovascular: Reports nausea. Respiratory: Airway is patent Trachea midline Breath sounds are clear bilaterally. Respiratory:. GI: No signs and/or symptoms were reported involving the gastrointestinal system. : No signs and/or symptoms were reported regarding the genitourinary system. Derm: Skin is intact, Skin is dry, Skin is pink, warm \T\ dry. Skin temperature is warm. Musculoskeletal: Capillary refill < 3 seconds, Range of motion: intact in all extremities. Historical: - Allergies: 20:06 No Known Allergies; tr5 - PMHx: 20:06 Diabetes - NIDDM; Dialysis; High Cholesterol; Hypertension; Hypothyroidism; tr5 - Immunization history:: Adult Immunizations up to date. - Social history:: Smoking status: . - Ebola Screening: : Patient negative for fever greater than or equal to 101.5 degrees Fahrenheit, and additional compatible Ebola Virus Disease symptoms. Screenin:07 Abuse screen: Denies threats or abuse. Nutritional screening: No deficits noted. tr5 Tuberculosis screening: No symptoms or risk factors identified. Fall Risk None identified. Assessment: 11/17 20:50 Reassessment: Patient appears in no apparent distress at this time. Patient and/or aa1 family updated on plan of care and expected duration. Pain level reassessed. Patient is alert, oriented x 3, equal unlabored respirations, skin warm/dry/pink. Awaiting lab results Patient denies pain at this time. 11/18 21:46 Reassessment: Patient appears in no apparent distress at this time. Patient and/or tr5 family updated on plan of care and expected duration. Pain level reassessed. Patient is alert, oriented x 3, equal unlabored respirations, skin warm/dry/pink. Vital Signs: 19:55 BP 148 / 98; Pulse 52; Resp 16; Temp 98(O); Pulse Ox 99% on R/A; aa1 20:30 BP 120 / 82; Pulse 52; Resp 14; Pulse Ox 97% on R/A; Pain 0/10; aa1 21:30 BP 135 / 86 Supine; Pulse 53; tr5 21:35 BP 142 / 89 Sitting; Pulse 52; tr5 21:38 BP 130 / 90 Standing; Pulse 57; tr5 ED Course: 19:32 Patient arrived in ED. es 19:44 Sam Delarosa MD is Attending Physician. kdr 19:45 Zaid Campbell, SANJAY is Primary Nurse. tr5 20:01 Triage completed. tr5 20:05 EKG done, by ED staff, reviewed by Sam Delarosa MD. aa1 20:08 Patient has correct armband on for positive identification. Placed in gown. Bed in low tr5 position. Call light in reach. Side rails up X2. 20:09 Arm band placed on. tr5 20:10 Inserted saline lock: 20 gauge in left forearm, using aseptic technique. Blood aa1 collected. 20:10 Initial lab(s) drawn, by me, sent to lab. aa1 20:27 XRAY Chest (1 view) In Process Unspecified. EDMS 21:46 Awaiting ED provider evaluation, Awaiting re-evaluation by ER provider. tr5 Administered Medications: No medications were administered Outcome: 21:49 Discharge ordered by . kdr 22:01 Patient left the ED. tr5 Signatures: Dispatcher [employer] Trena Diego RN RN aa1 Sam Delarosa MD MD kdr Salyer, Edna es Rodriguez, Tommie, RN RN tr5 Corrections: (The following items were deleted from the chart) 20:20 20:04 Accessed Port-a-Cath. tr5 aa1 20:49 17:55 BP 148 / 98; Pulse 52bpm; Resp 16bpm; Pulse Ox 99% RA; Temp 98F Oral; tr5 aa1
--- NOTE | 2018-11-19 09:36 | EKG ---
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
== END 2018-11-18 22:01 | disposition home or self-care (01) ==
LOC: ER 19:27
DX: R25.2 Cramp and spasm (principal); I12.0 Hypertensive chronic kidney disease with stage 5 chronic kidney disease or end stage renal disease; E11.22 Type 2 diabetes mellitus with diabetic chronic kidney disease; N18.6 End stage renal disease; Z99.2 Dependence on renal dialysis
CPT/HCPCS: 36415; 71045; 80048; 80076; 83735; 83880; 84484; 85025; 85610; 93005; 99284

== ENCOUNTER 2020-04-22 17:55 | Emergency (ER) | payer OTHER ==
--- OUTSIDE RECORDS SUMMARY | 2020-04-22 17:57 | XMS REPORT | Clinical Summary ---
:1965 Author Organization [facility] Address [address] [place] [id number] Care Team Providers Name Role Phone Asked, No Pcp Primary Care Provider Unavailable Allergies No Known Active Allergies Medications Medication Sig Dispensed Refills Start Date End Date Status amLODIPine (NORVASC) 10 Take 10 mg by 0 Active mg tablet mouth daily. levothyroxine Take 150 mcg by 0 Active (SYNTHROID, LEVOXYL) 150 mouth daily. mcg tablet lovastatin (MEVACOR) 10 Take 20 mg by 0 Active MG tablet mouth nightly. Active Problems Problem Noted Date ESRD (end stage renal disease) on dialysis Overview: 06/2018 Surgical History Surgery Date Site/Laterality Comments CREATION, AV FISTULA 01/05/2019 Left Procedure: LEFT UPPER EXTREMITY AV FISTULA CREATION ; Surgeon: Zia Huang MD; L ocation: [facility] Main OR; Service: Vascula r; Laterality: Left; Medical History Medical History Date Comments Hypertension Hypothyroidism Type 2 diabetes mellitus (HCC) ESRD (end stage renal disease) on dialysis (HCC) 06/2018 Dialysis patient (HCC) Social History Tobacco Use Types Packs/Day Years Used Date Former Smoker Cigarettes 20 07/06/1999 - 1 05/07/2017 Smokeless Tobacco: Never Used Alcohol Use Drinks/Week oz/Week Comments Never Alcohol Habits Answer Date Recorded How often do you have a drink containing alcohol? Never 01/05/2019 How many drinks containing alcohol do you have on a typical Not asked day when you are drinking? How often do you have six or more drinks on one occasion? No t asked Sex Assigned at Date Recorded Not on file Last Filed Vital Signs Not on file Plan of Treatment Health Maintenance Due Date Last Done Comments COVID-19 VACCINE (#1) 1981 COLONOSCOPY SCREENING 2015 SHINGLES VACCINES (#1) 2015 INFLUENZA VACCINE 12/02/2019 Results Not on fileafter 04/22/2019 Insurance Payer Benefit Plan / Subscriber ID Effective Dates Phone Addre ss Type Group MEDICARE MEDICARE PART A [id number] 2018-Present [facility] [place] AND B MEDICAID MEDICAID [id number] 2019-Present Med icaid Advance Directives For more information, please contact: [phone] Type Date Recorded 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
--- OUTSIDE RECORDS SUMMARY | 2020-04-22 17:58 | XMS REPORT | Clinical Summary ---
:1965 Author Organization [facility] Address [address] [place] [address] Care Team Providers Name Role Phone Pcp, Primary Care Provider Unavailable Allergies No Known Allergies Medications Medication Sig Dispensed Refills Start Date End Date Status amLODIPine (NORVASC) Take 10 mg by 0 05/18/2019 Active 10 MG tablet mouth daily . sevelamer (RENVELA) 800 mg 3 0 05/12/2019 Active 800 mg tablet (three) times daily . UNITHROID 125 mcg Take 125 mcg 0 05/12/2019 Active tablet by mouth nightly . lovastatin (MEVACOR) Take 10 mg by 0 Active 10 MG tablet mouth nightly. calcium carbonate Take 3 0 Ac tive (TUMS) 500 mg tablets by chewable tablet mouth 3 (three) times daily. furosemide (LASIX) 20 Take 20 mg by 0 Active MG tablet mouth daily. atorvastatin Take 1 tablet 0 09/15/2019 Ac tive (LIPITOR) 10 MG by mouth tablet daily. cyclobenzaprine Take 1 tablet 0 12/05/2019 Active (FLEXERIL) 10 MG by mouth tablet daily. ergocalciferol Take 1 0 11/19/2019 Acti ve (ERGOCALCIFEROL) capsule by 1,250 mcg (50,000 mouth once a unit) capsule week. AURYXIA 210 mg iron TAKE BY MOUTH 0 10/02/2019 Active Tab 2 TABLETS WITH MEALS 3 TIMES A DAY indomethacin as needed. 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, 05/23/2019 without long-term current use of insulin Encounters Date Type Specialty Care Team Description 01/19/2020 Documentation Transplant Faviola Scales E 01/04/2020 Telephone Transplant Shantel Ko Follow-up Y, RN 01/04/2020 Documentation Transplant Faviola Scales E 01/04/2020 Telephone Transplant Shantel Ko Follow-up Y, RN 12/14/2019 Surgery Sammy Blanco, R & L CATH / CORONARY ANGIOS / PCI 12/14/2019 Hospital Encounter Sammy Blanco Hematom a of groin, initial encounter; - Hyperlipidemia, unspecified hyperlipidemia type; 12/16/2019 Essential hyper tension; Coronary artery disease involving [place] coronary artery of [place] heart without angina pectoris; ESRD (end stage renal disease) on dialysis (HCC); Type 2 diabetes mellitus with chronic kidney disease on chronic dialysis, without long-term current use of insulin (HCC); Hypothyroidism, unspecified type; Obesity (BMI 30 -39.9); Secondary hyper parathyroidism of renal origin (HCC); Other hypervole denisa; Pre-transplant evaluation for ESRD (end stage renal disease); Pre-transplant evaluation for chronic kidney disease 12/14/2019 Office Visit Cardiology Sammy Blanco, Pre-op testin g (Primary MD Dx) Delfino Celestin RN 12/14/2019 Orders Only General Internal Medicine 12/14/2019 Travel 11/14/2019 Follow-Up Transplant Patience Nielson MD 11/13/2019 Documentation Transplant Dede Meyer 11/13/2019 Telephone Transplant Dede Meyer Appointment ( Patient called to lam jones appt for tomorrow . He will be here wi th his support system. Pt was also asked JORDYN donovan ions. ) 10/27/2019 Documentation Transplant Scales, Faviola E 10/19/2019 Documentation Transplant Scales, Faviola E 10/17/2019 Telephone Transplant PowersManisha peters COVID19 Screen ing 08/15/2019 Documentation Transplant [place], Aparna Brooke RN 08/10/2019 Documentation Transplant [place], Pre-transplant evaluation for chronic kidney disease (Primary Dx); Aparna Brooke RN ESRD (end st age renal disease) on dialysis (HCC); Type 2 diabetes mellitus with chronic kidney disease on chronic dialysis, without long-term current use of insulin (HCC); Essential hyper tension 08/09/2019 Documentation Transplant PowersZuri petersiam 08/03/2019 Orders Only Transplant ProviderElaine MD 07/13/2019 Evaluation Transplant [place], Pre-transplant evaluation for chronic kidney disease (Primary Dx); Bhamidipati ESRD (end stage renal disease) on dialysis (HCC); MD Chris Type 2 diabetes mellitus with chronic kidney disease on chronic dialysis, without long-term current use of insulin (HCC); Essential hyper tension; Hypothyroidism, unspecified type; Secondary hyper parathyroidism of renal origin (HCC); Hyperlipidemia, unspecified hyperlipidemia type; Obesity (BMI 30 -39.9) 07/13/2019 Evaluation Transplant [place], Patience Perez MD 07/13/2019 Hospital Encounter Cardiology [place], ESRD (end stage renal disease) on dialysis (HCC); Bhamidipati Diabetes mellit us due to underlying condition with chronic kidney disease on chronic dialysis, without long-term current use of insulin ([facility]); MD Chris Hypertensive re nal disease; Pre-transplant evaluation for chronic kidney disease 07/13/2019 Hospital Encounter Cardiology [place], ESRD (end stage renal disease) on dialysis (HCC); Bhamidipati Diabetes mellit us due to underlying condition with chronic kidney disease on chronic dialysis, without long-term current use of insulin ([facility]); MD Chris Hypertensive re nal disease; Pre-transplant evaluation for chronic kidney disease 07/13/2019 Orders Only Lab [place], ESRD (end stage renal disease) on dialysis (HCC); Bhamidipati Diabetes mellit us due to underlying condition with chronic kidney disease on chronic dialysis, without long-term current use of insulin ([facility]); MD Chris Hypertensive re nal disease; Pre-transplant evaluation for chronic kidney disease 07/12/2019 Telephone Transplant Scales, Faviola E Appointment (Called pt and asked him p rotocol questions mode santamaria the COVID19, pt sta madi he is feeling well an d has not travelled outsi de the country in the past month. He will attend his appt tomorr ow. ) 07/12/2019 Telephone Transplant [place], Appointment (Un able to Judy contact Mr.Lope miguel Dunbar his ph one number is disco nnected. I contacted the brother Tano Paez and he does not have his ne w number but will try to get and call back. I ca lled the hd unit and per Samantha she has the same nu mber that I have and will call me back if she fin ds his new number) 06/15/2019 Telephone Transplant [place], Appointment (Karson Kim in [place] per devang ent he's unable to keep his appt for today and w ill need to reschedule t o due to he has to see h is doctor about his graft . Patient aware of his ne w appt on 07.13.2019 pt dawn tucker to check in at 6:3 0 am to register. Patie nt aware I will fax the itinerary to the hd unit. ); Appointment (Karson Cuba at the hd unit she will give the patien t his itinerary) 05/31/2019 Abstract Transplant Aparna Kumar, RN 05/25/2019 Documentation Pharmacy [facility] [place], [facility] 05/23/2019 Hospital Encounter Radiology [place], ESRD (end stage renal disease) on dialysis (HCC); Bhamidipati Diabetes mellit us due to underlying condition with chronic kidney disease on chronic dialysis, without long-term current use of insulin (HCC); MD Chris Hypertensive re nal disease; Pre-transplant evaluation for chronic kidney disease 05/23/2019 Hospital Encounter [place], ESRD (end stage renal disease) on dialysis (HCC); Bhamidipati Diabetes mellit us due to underlying condition with chronic kidney disease on chronic dialysis, without long-term current use of insulin (HCC); MD Chris Hypertensive re nal disease; Pre-transplant evaluation for chronic kidney disease 05/23/2019 Office Visit Transplant [place], ESRD (end stage renal disease) on dialysis (HCC) (Primary Dx); Bhamidipati Diabetes mellit us due to underlying condition with chronic kidney disease on chronic dialysis, without long-term current use of insulin (HCC); MD Chris Hypertensive renal disease; Kylah Canales RN Pre-transpl ant evaluation for chronic kidney disease; Essential hyper tension; Type 2 diabetes mellitus with chronic kidney disease on chronic dialysis, with long-term current use of insulin (HCC) 05/23/2019 Orders Only Transplant [place], ESRD (end stage renal disease) on dialysis (HCC); Hepatology amidipati Diabetes [facility] due to underlying condition with chronic kidney disease on chronic dialysis, without long-term current use of insulin (HCC); MD Chris Hypertensive re nal disease; Pre-transplant evaluation for chronic kidney disease 05/22/2019 Outside Orders Radiology Melinda Blankenship MD after 04/22/2019 Family History Medical History Relation Name Comments No Known Problem Brother Alcohol abuse Father No Known Problem Mother Diabetes Sister Kidney disease Sister No Known Problem Sister Relation Name Status Comments Brother Alive Father Mother Sister Sister Alive Social History Tobacco Use Types Packs/Day Years Used Date Former Smoker 0.25 20 Quit: 09/2019 Smokeless Tobacco: Never Used Alcohol Use Drinks/Week oz/Week Comments No Alcohol Habits Answer Date Recorded How often do you have a drink containing alcohol? Never 05/23/2019 How many drinks containing alcohol do you have on a typical Not asked day when you are drinking? How often do you have six or more drinks on one occasion? No t asked Sex Assigned at Date Recorded Not on file Last Filed Vital Signs Vital Sign Reading Time Taken Comments Blood Pressure 142/80 12/16/2019 1:25 PM CDT Pulse 76 12/16/2019 1:25 PM CDT Temperature 36.6 C (97.8 F) 12/16/2019 1:25 PM CDT Respiratory Rate 16 12/16/2019 1:25 PM CDT Oxygen Saturation 96% 12/16/2019 1:25 PM CDT Inhaled Oxygen Concentration 21% 12/15/2019 12:01 PM CDT Weight 76.4 kg (168 lb 6.9 oz) 12/16/2019 12:00 PM CDT Height 162.6 cm (5' 4") 12/14/2019 8:59 AM CDT Body Mass Index 28.91 12/14/2019 8:59 AM CDT Plan of Treatment Health Maintenance Due Date Last Done Comments COLON CANCER SCREENING COLONOSCOPY 1965 DIABETIC EYE EXAM 1975 DIABETIC FOOT EXAM 1975 URINE MICROALBUMIN 1975 PNEUMOCOCCAL VACCINE 0-64 YRS (2 of 3 03/07/2019 03/07/2018 - PCV13) MEDICARE ANNUAL WELLNESS (YEAR 2 or 11/02/2019 FIRST YEAR if no IPPE) INFLUENZA VACCINE (#1) 2020 HEMOGLOBIN A1C 01/13/2020 07/13/2019 LIPID PANEL 07/12/2022 07/13/2019, 01/09/2019, 03/04/2018 DEPRESSION SCREENING (12+) Completed 12/14/2019 Procedures Procedure Name Priority Date/Time Associated Comments Diagnosis VASCULAR DIAGRAM 12/21/2019 12:53 -SCAN PM CDT VASCULAR DIAGRAM 12/21/2019 12:53 -SCAN PM CDT REPORT OF PROCEDURE - 12/19/2019 2:40 ENDOSCOPY SCAN PM CDT RHYTHM STRIP - SCAN 12/19/2019 2:40 PM CDT VASCULAR DIAGRAM 12/19/2019 2:40 -SCAN PM CDT CARDIAC CATH REPORT - 12/19/2019 2:40 SCAN PM CDT HEMODIALYSIS Routine 12/16/2019 10:30 Results for this INPATIENT AM CDT procedure are i n the results section. (MANUAL DIFFERENTIAL) Routine 12/16/2019 9:20 Re sults for this AM CDT procedure are i n the results section. HEPATITIS B SURFACE Routine 12/16/2019 8:36 Resu lts for this ANTIGEN AM CDT procedure are i n the results section. (CELLAVISION MANUAL Routine 12/16/2019 4:16 Resu lts for this DIFF) AM CDT procedure are i n the results section. CBC WITH PLATELET Routine 12/16/2019 4:16 Result s for this COUNT + MANUAL DIFF AM CDT procedur e are in the results section. PHOSPHORUS Routine 12/16/2019 4:16 Results for this AM CDT procedure are i n the results section. BASIC METABOLIC PANEL Routine 12/16/2019 4:16 Re sults for this (7) AM CDT procedure are i n the results section. CBC W/PLT+MANUAL DIFF Routine 12/16/2019 4:16 Re sults for this AM CDT procedure are i n the results section. CBC W/PLT COUNT & Routine 12/15/2019 2:32 Result s for this AUTO DIFFERENTIAL AM CDT procedure are in the results section. PHOSPHORUS Routine 12/15/2019 2:32 Results for this AM CDT procedure are i n the results section. BASIC METABOLIC PANEL Routine 12/15/2019 2:32 Re sults for this (7) AM CDT procedure are i n the results section. CBC W/PLT COUNT & Routine 12/15/2019 2:32 Result s for this AUTO DIFFERENTIAL AM CDT procedure are in the results section. ARTERIAL DOPPLER LEG, Routine 12/15/2019 2:25 Re sults for this RIGHT AM CDT procedure are i n the results section. ABD AO & LOWER EXT 12/14/2019 1:07 Pre-transplant ANGIOS/ POSS PPI PM CDT evaluation for ESRD (end stage renal disease) Case Notes 6TOP Special Needs START @ 13:00 / dialysis pt. R & L CATH / CORONARY 12/14/2019 1:07 PM CDT Pre-[facility] evaluation for ANGIOS / PCI ESRD (end stage renal diseas e) Case Notes 6TOP Special Needs START @ 13:00 / dialysis pt. PROTHROMBIN TIME/INR Routine 12/14/2019 9:24 AM Results for this CDT procedure are i n the results section. BASIC METABOLIC PANEL Routine 12/14/2019 9:24 AM Results for this (7) CDT procedure are i n the results section. CBC (HEMOGRAM ONLY) Routine 12/14/2019 9:24 AM R esults for this CDT procedure are i n the results section. SARS-COV2/RT-PCR ([facility] STAT 12/14/2019 8:40 AM Pre-op test ing Results for this & REF LABS) CDT procedure are i n the results section. ECG 12-LEAD Routine 12/14/2019 8:07 AM CDT Procedure Note - Interface, External Ris In - 12/14/2019 9:02 AM CDT Ventricular Rate 73 BPM Atrial Rate 73 BPM P-R Interval 184 ms QRS Duration 100 ms Q-T Interval 400 ms QTC Calculation(Bazett) 440 ms P Bynum 59 degrees R Bynum 75 degrees T Bynum 122 degrees Normal sinus rhythm Nonspecific T wave abnormali ty Abnormal ECG When compared with ECG of 07:43, No significant change was fo und ECG 12-LEAD Routine 12/14/2019 8:07 Results for this AM CDT procedure are i n the results section. URINE CULTURE Routine 11/14/2019 12:16 Pre-transplant Results for this PM CDT evaluation for procedure are in chronic kidney the results disease section. ESRD (end stage renal disease) on dialysis ([facility]) Type 2 diabetes mellitus with chronic kidney disease on chronic dialysis, without long-term current use of insulin ( [facility]) Essential hypertension US RETROPERITONEAL Routine 08/03/2019 COMPLETE TRANSFUSION SERVICE 07/14/2019 6:06 REPORT - SCAN PM CDT ECHOCARDIOGRAM REPORT - 07/13/2019 9:13 SCAN PM CDT PERIPHERAL VASCULAR 07/13/2019 9:11 REPORT - SCAN PM CDT TREADMILL Routine 07/13/2019 8:53 Results for this TOLERANCE(NON-NUCLEAR AM CDT proced ure are in TREADMILL) the results section. STRESS ECHO Routine 07/13/2019 8:51 ESRD (end stage Results for this AM CDT renal disease) on procedure are in dialysis ([facility]) the results Diabetes mellitus section. due to underlying condition with chronic kidney disease on chronic dialysis, without long-term current use of insulin ( [facility]) Hypertensive renal disease Pre-transplant evaluation for chronic kidney disease 2D ECHO W/ DOPPLER Routine 07/13/2019 8:02 ESRD (end stage Re sults for this (CW/PW/COLOR) AM CDT renal disease) on procedure are in dialysis ([facility]) the results Diabetes mellitus section. due to underlying condition with chronic kidney disease on chronic dialysis, without long-term current use of insulin ( [facility]) Hypertensive renal disease Pre-transplant evaluation for chronic kidney disease ECG 12-LEAD Routine 07/13/2019 7:43 ESRD (end stage Results for this AM CDT renal disease) on procedure are in dialysis ([facility]) the results Diabetes mellitus section. due to underlying condition with chronic kidney disease on chronic dialysis, without long-term current use of insulin ( [facility]) Hypertensive renal disease Pre-transplant evaluation for chronic kidney disease TYPE AND SCREEN, Routine 07/13/2019 7:24 ESRD (end stage Resu lts for this AUTOMATED AM CDT renal disease) on procedure are in dialysis ([facility]) the results Diabetes mellitus section. due to underlying condition with chronic kidney disease on chronic dialysis, without long-term current use of insulin ( [facility]) Hypertensive renal disease Pre-transplant evaluation for chronic kidney disease PSA Routine 07/13/2019 7:24 ESRD (end stage Results for this AM CDT renal disease) on procedure are in dialysis ([facility]) the results Diabetes mellitus section. due to underlying condition with chronic kidney disease on chronic dialysis, without long-term current use of insulin ( [facility]) Hypertensive renal disease Pre-transplant evaluation for chronic kidney disease HEMOGLOBIN A1C Routine 07/13/2019 7:24 ESRD (end stage Result s for this AM CDT renal disease) on procedure are in dialysis ([facility]) the results Diabetes mellitus section. due to underlying condition with chronic kidney disease on chronic dialysis, without long-term current use of insulin ( [facility]) Hypertensive renal disease Pre-transplant evaluation for chronic kidney disease LIPID PANEL Routine 07/13/2019 7:24 ESRD (end stage Results for this AM CDT renal disease) on procedure are in dialysis ([facility]) the results Diabetes mellitus section. due to underlying condition with chronic kidney disease on chronic dialysis, without long-term current use of insulin ( [facility]) Hypertensive renal disease Pre-transplant evaluation for chronic kidney disease TRANSFUSION SERVICE 05/24/2019 8:56 REPORT - SCAN PM POWDER NIPPER US ABDOMEN COMPLETE Routine 05/23/2019 12:02 ESRD (end stage R esults for this PM POWDER NIPPER renal disease) on procedure are in dialysis ([facility]) the results Diabetes mellitus section. due to underlying condition with chronic kidney disease on chronic dialysis, without long-term current use of insulin ( [facility]) Hypertensive renal disease Pre-transplant evaluation for chronic kidney disease XR CHEST 2 VIEWS Routine 05/23/2019 11:16 ESRD (end stage Resu lts for this AM POWDER NIPPER renal disease) on procedure are in dialysis ([facility]) the results Diabetes mellitus section. due to underlying condition with chronic kidney disease on chronic dialysis, without long-term current use of insulin ( [facility]) Hypertensive renal disease Pre-transplant evaluation for chronic kidney disease CBC W/PLT COUNT & AUTO Routine 05/23/2019 10:39 ESRD (end stag e Results for this DIFFERENTIAL AM POWDER NIPPER renal disease) on procedure are in dialysis ([facility]) the results Diabetes mellitus section. due to underlying condition with chronic kidney disease on chronic dialysis, without long-term current use of insulin ( [facility]) Hypertensive renal disease Pre-transplant evaluation for chronic kidney disease DIRECT AHG (RENE)/DIRECT Routine 05/23/2019 10:39 ESRD (end sta ge Results for this DESTINEE AM POWDER NIPPER renal disease) on procedure are in dialysis ([facility]) the results Diabetes mellitus section. due to underlying condition with chronic kidney disease on chronic dialysis, without long-term current use of insulin ( [facility]) Hypertensive renal disease Pre-transplant evaluation for chronic kidney disease BLOOD TYPING, AUTOMATED Routine 05/23/2019 10:39 ESRD (end sta ge Results for this AM POWDER NIPPER renal disease) on procedure are in dialysis ([facility]) the results Diabetes mellitus section. due to underlying condition with chronic kidney disease on chronic dialysis, without long-term current use of insulin ( [facility]) Hypertensive renal disease Pre-transplant evaluation for chronic kidney disease HLA TYPING CII Routine 05/23/2019 10:39 ESRD (end stage Result s for this AM POWDER NIPPER renal disease) on procedure are in dialysis ([facility]) the results Diabetes mellitus section. due to underlying condition with chronic kidney disease on chronic dialysis, without long-term current use of insulin ( [facility]) Hypertensive renal disease Pre-transplant evaluation for chronic kidney disease HLA TYPING CI Routine 05/23/2019 10:39 ESRD (end stage Results for this AM POWDER NIPPER renal disease) on procedure are in dialysis ([facility]) the results Diabetes mellitus section. due to underlying condition with chronic kidney disease on chronic dialysis, without long-term current use of insulin ( [facility]) Hypertensive renal disease Pre-transplant evaluation for chronic kidney disease FLOW PRA CLASS II WITH Routine 05/23/2019 10:39 ESRD (end stag e Results for this REFLEX TO ANTIBODY AM POWDER NIPPER renal disease) on proc edure are in SPECIFICITY dialysis ([facility]) the results Diabetes mellitus section. due to underlying condition with chronic kidney disease on chronic dialysis, without long-term current use of insulin ( [facility]) Hypertensive renal disease Pre-transplant evaluation for chronic kidney disease FLOW PRA CLASS I WITH Routine 05/23/2019 10:39 ESRD (end stage Results for this REFLEX TO ANTIBODY AM POWDER NIPPER renal disease) on proc edure are in SPECIFICITY dialysis ([facility]) the results Diabetes mellitus section. due to underlying condition with chronic kidney disease on chronic dialysis, without long-term current use of insulin ( [facility]) Hypertensive renal disease Pre-transplant evaluation for chronic kidney disease VARICELLA ZOSTER Routine 05/23/2019 10:39 ESRD (end stage Resu lts for this ANTIBODY, IGG AM POWDER NIPPER renal disease) on procedure are in dialysis ([facility]) the results Diabetes mellitus section. due to underlying condition with chronic kidney disease on chronic dialysis, without long-term current use of insulin ( [facility]) Hypertensive renal disease Pre-transplant evaluation for chronic kidney disease URIC ACID Routine 05/23/2019 10:39 ESRD (end stage Results for this AM POWDER NIPPER renal disease) on procedure are in dialysis ([facility]) the results Diabetes mellitus section. due to underlying condition with chronic kidney disease on chronic dialysis, without long-term current use of insulin ( [facility]) Hypertensive renal disease Pre-transplant evaluation for chronic kidney disease T SPOT TB Routine 05/23/2019 10:39 ESRD (end stage Results for this AM POWDER NIPPER renal disease) on procedure are in dialysis ([facility]) the results Diabetes mellitus section. due to underlying condition with chronic kidney disease on chronic dialysis, without long-term current use of insulin ( [facility]) Hypertensive renal disease Pre-transplant evaluation for chronic kidney disease RPR Routine 05/23/2019 10:39 ESRD (end stage Results for this AM POWDER NIPPER renal disease) on procedure are in dialysis ([facility]) the results Diabetes mellitus section. due to underlying condition with chronic kidney disease on chronic dialysis, without long-term current use of insulin ( [facility]) Hypertensive renal disease Pre-transplant evaluation for chronic kidney disease PROTHROMBIN TIME/INR Routine 05/23/2019 10:39 ESRD (end stage Results for this AM POWDER NIPPER renal disease) on procedure are in dialysis ([facility]) the results Diabetes mellitus section. due to underlying condition with chronic kidney disease on chronic dialysis, without long-term current use of insulin ( [facility]) Hypertensive renal disease Pre-transplant evaluation for chronic kidney disease PT/APTT Routine 05/23/2019 10:39 ESRD (end stage Results for this AM POWDER NIPPER renal disease) on procedure are in dialysis ([facility]) the results Diabetes mellitus section. due to underlying condition with chronic kidney disease on chronic dialysis, without long-term current use of insulin ( [facility]) Hypertensive renal disease Pre-transplant evaluation for chronic kidney disease PTH, INTACT Routine 05/23/2019 10:39 ESRD (end stage Results for this AM POWDER NIPPER renal disease) on procedure are in dialysis ([facility]) the results Diabetes mellitus section. due to underlying condition with chronic kidney disease on chronic dialysis, without long-term current use of insulin ( [facility]) Hypertensive renal disease Pre-transplant evaluation for chronic kidney disease PHOSPHORUS Routine 05/23/2019 10:39 ESRD (end stage Results for this AM POWDER NIPPER renal disease) on procedure are in dialysis ([facility]) the results Diabetes mellitus section. due to underlying condition with chronic kidney disease on chronic dialysis, without long-term current use of insulin ( [facility]) Hypertensive renal disease Pre-transplant evaluation for chronic kidney disease LACTATE DEHYDROGENASE Routine 05/23/2019 10:39 ESRD (end stage Results for this ([facility]) AM POWDER NIPPER renal disease) on procedure are in dialysis ([facility]) the results Diabetes mellitus section. due to underlying condition with chronic kidney disease on chronic dialysis, without long-term current use of insulin ( [facility]) Hypertensive renal disease Pre-transplant evaluation for chronic kidney disease HIV-1 ANTIGEN WITH Routine 05/23/2019 10:39 ESRD (end stage Re sults for this HIV-1/2 ANTIBODY AM POWDER NIPPER renal disease) on proced ure are in dialysis ([facility]) the results Diabetes mellitus section. due to underlying condition with chronic kidney disease on chronic dialysis, without long-term current use of insulin ( [facility]) Hypertensive renal disease Pre-transplant evaluation for chronic kidney disease HEPATITIS C ANTIBODY Routine 05/23/2019 10:39 ESRD (end stage Results for this AM POWDER NIPPER renal disease) on procedure are in dialysis ([facility]) the results Diabetes mellitus section. due to underlying condition with chronic kidney disease on chronic dialysis, without long-term current use of insulin ( [facility]) Hypertensive renal disease Pre-transplant evaluation for chronic kidney disease HEPATITIS B CORE Routine 05/23/2019 10:39 ESRD (end stage Resu lts for this ANTIBODY, IGM AM POWDER NIPPER renal disease) on procedure are in dialysis ([facility]) the results Diabetes mellitus section. due to underlying condition with chronic kidney disease on chronic dialysis, without long-term current use of insulin ( [facility]) Hypertensive renal disease Pre-transplant evaluation for chronic kidney disease HEPATITIS B SURFACE Routine 05/23/2019 10:39 ESRD (end stage R esults for this ANTIGEN AM POWDER NIPPER renal disease) on procedure are in dialysis ([facility]) the results Diabetes mellitus section. due to underlying condition with chronic kidney disease on chronic dialysis, without long-term current use of insulin ( [facility]) Hypertensive renal disease Pre-transplant evaluation for chronic kidney disease HEPATITIS B SURFACE Routine 05/23/2019 10:39 ESRD (end stage R esults for this ANTIBODY AM POWDER NIPPER renal disease) on procedure are in dialysis ([facility]) the results Diabetes mellitus section. due to underlying condition with chronic kidney disease on chronic dialysis, without long-term current use of insulin ( [facility]) Hypertensive renal disease Pre-transplant evaluation for chronic kidney disease GAMMA GLUTAMYL Routine 05/23/2019 10:39 ESRD (end stage Result s for this TRANSFERASE (GGT) AM POWDER NIPPER renal disease) on proce dure are in dialysis ([facility]) the results Diabetes mellitus section. due to underlying condition with chronic kidney disease on chronic dialysis, without long-term current use of insulin ( [facility]) Hypertensive renal disease Pre-transplant evaluation for chronic kidney disease EBV ANTIBODY, IGM Routine 05/23/2019 10:39 ESRD (end stage Res ults for this AM POWDER NIPPER renal disease) on procedure are in dialysis ([facility]) the results Diabetes mellitus section. due to underlying condition with chronic kidney disease on chronic dialysis, without long-term current use of insulin ( [facility]) Hypertensive renal disease Pre-transplant evaluation for chronic kidney disease EBV ANTIBODY, IGG Routine 05/23/2019 10:39 ESRD (end stage Res ults for this AM POWDER NIPPER renal disease) on procedure are in dialysis ([facility]) the results Diabetes mellitus section. due to underlying condition with chronic kidney disease on chronic dialysis, without long-term current use of insulin ( [facility]) Hypertensive renal disease Pre-transplant evaluation for chronic kidney disease COMPREHENSIVE METABOLIC Routine 05/23/2019 10:39 ESRD (end sta ge Results for this PANEL AM POWDER NIPPER renal disease) on procedure are in dialysis ([facility]) the results Diabetes mellitus section. due to underlying condition with chronic kidney disease on chronic dialysis, without long-term current use of insulin ( [facility]) Hypertensive renal disease Pre-transplant evaluation for chronic kidney disease CYTOMEGALOVIRUS Routine 05/23/2019 10:39 ESRD (end stage Resul ts for this ANTIBODY, IGM AM POWDER NIPPER renal disease) on procedure are in dialysis ([facility]) the results Diabetes mellitus section. due to underlying condition with chronic kidney disease on chronic dialysis, without long-term current use of insulin ( [facility]) Hypertensive renal disease Pre-transplant evaluation for chronic kidney disease CYTOMEGALOVIRUS Routine 05/23/2019 10:39 ESRD (end stage Resul ts for this ANTIBODY, IGG AM POWDER NIPPER renal disease) on procedure are in dialysis ([facility]) the results Diabetes mellitus section. due to underlying condition with chronic kidney disease on chronic dialysis, without long-term current use of insulin ( [facility]) Hypertensive renal disease Pre-transplant evaluation for chronic kidney disease CBC W/PLT COUNT & AUTO Routine 05/23/2019 10:39 ESRD (end stag e Results for this DIFFERENTIAL AM POWDER NIPPER renal disease) on procedure are in dialysis ([facility]) the results Diabetes mellitus section. due to underlying condition with chronic kidney disease on chronic dialysis, without long-term current use of insulin ( [facility]) Hypertensive renal disease Pre-transplant evaluation for chronic kidney disease URINALYSIS W/ Routine 05/23/2019 10:34 ESRD (end stage Results for this MICROSCOPIC AM POWDER NIPPER renal disease) on procedure are in dialysis ([facility]) the results Diabetes mellitus section. due to underlying condition with chronic kidney disease on chronic dialysis, without long-term current use of insulin ( [facility]) Hypertensive renal disease Pre-transplant evaluation for chronic kidney disease URINE CULTURE Routine 05/23/2019 10:34 ESRD (end stage Results for this AM POWDER NIPPER renal disease) on procedure are in dialysis ([facility]) the results Diabetes mellitus section. due to underlying condition with chronic kidney disease on chronic dialysis, without long-term current use of insulin ( [facility]) Hypertensive renal disease Pre-transplant evaluation for chronic kidney disease after 04/22/2019 Results VASCULAR DIAGRAM -SCAN (12/21/2019 12:53 PM CDT)Only the most recent of3 results within the time period is included. Narrative Performed At This result has an attachment that is no t available. EKG-SCANNED (12/19/2019 2:40 PM CDT) Narrative Performed At This result has an attachment that is no t available. RHYTHM STRIP - SCAN (12/19/2019 2:40 PM CDT) Narrative Performed At This result has an attachment that is no t available. CARDIAC CATH REPORT - SCAN (12/19/2019 2:40 PM CDT) Narrative Performed At This result has an attachment that is no t available. HEMODIALYSIS INPATIENT (12/16/2019 10:30 AM CDT) Narrative Performed At Celestine Luu III, MD 0 7:15 PM [facility] Nephrology Service 12/16/2019 I have personally seen and examined Monica Dunbar on hemodialysis Indication :ESRD Prescription: F160, 3-4 hrs, 2.0K, 2.5 C a, UF2-3 L as cathi Reason for exam: BP fluctuation & adjust dry weight Tolerating dialysis ok Celestine Luu III, MD 12/16/2019 Manual Differential (12/16/2019 9:20 AM CDT) Pathologist Sig nature % Neutros (manual) 82 % [facility] % Lymphs (manual) 8 % [facility] % Monos (manual) 8 % [facility] % Eos (manual) 1 % [facility] % Baso (manual) 1 % [facility] Total Counted 100 [facility] WBC Morphology Normal [facility] Platelet Morphology Normal [facility] RBC Morphology Normal [facility] Specimen Blood Performing Organization Address City/State/Zipcode Phone Number [facility] [address], [place] [phone] [place] Hepatitis B surface antigen (12/16/2019 8:36 AM CDT)Only the most recent of2 resultswithin the time period is included. Pathologist Sig nature HBsAg Screen Nonreactive Nonreactive [facility] Specimen Blood - Arterial line (physical object) Narrative Performed At Specimen is considered negative for HBsAg. [facility] Performing Organization Address City/[facility]/Zipcode Phone Number [facility] [address] [place] [phone] [place] CBC with platelet count + manual diff (12/16/2019 4:16 AM CDT) Pathologist Sig nature WBC 9.0 3.5 - 10.5 K/L [facility] RBC 3.37 (L) 4.63 - 6.08 M/L [facility] Hemoglobin 10.6 (L) 13.7 - 17.5 GM/DL [facility] Hematocrit 31.7 (L) 40.1 - 51.0 % [facility] MCV 94.1 (H) 79.0 - 92.2 fL [facility] MCH 31.5 25.7 - 32.2 pg [facility] MCHC 33.4 32.3 - 36.5 GM/DL [facility] RDW 13.9 11.6 - 14.4 % [facility] Platelets 213 150 - 450 K/CU MM [facility] MPV 10.0 9.4 - 12.4 fL [facility] nRBC 0 0 - 0 /100 WBC [facility] Specimen Blood - Venous line (physical object) Performing Organization Address City/[facility]/Zipcode Phone Number [facility] [address] [place] [address] CENTER Manual Differential (12/16/2019 4:16 AM CDT) Pathologist Sig nature % Neutros 71 % [facility] % Lymphs 17 % [facility] % Monos 7 % [facility] % Eos 2 % [facility] % Bands 3 0 - 10 % [facility] # Neutros 6.39 (H) 1.78 - 5.38 K/ul [facility] # Lymphs 1.53 1.32 - 3.57 K/ul [facility] # Monos 0.63 0.30 - 0.82 K/uL [facility] # Eos 0.18 0.04 - 0.54 K/uL [facility] # Bands 0.27 0.00 - 0.80 K/uL [facility] Total Counted 100 [facility] WBC Morphology Normal [facility] Platelet Morph[facility] Normal [facility] Anisocytosis 1+ few [facility] Macrocytes 1+ few [facility] Poikilocytes 1+ few [facility] Specimen Blood - Venous line (physical object) Performing Organization Address City/[facility]/Zipcode Phone Number [facility] [address] [place] [address] CENTER Phosphorus (12/16/2019 4:16 AM CDT)Only the most recent of3 resultswithin the time period is included. Pathologist Sig nature Phosphorus 9.2 (HH) 2.3 - 4.7 mg/dL [facility] Specimen Blood - Venous line (physical object) Narrative Performed At [employer] Pant[employer] ID - RA Stearns [facility] Performing Organization Address City/[facility]/Zipcode Phone Number [facility] [address] [place] [address] CENTER Basic Metabolic Panel (12/16/2019 4:16 AM CDT)Only the most recent of3 results within the time period is included. Sodium 135 (L) 136 - 145 meq/L [facility] Potassium 4.6 3.5 - 5.1 meq/L [facility] Chloride 98 98 - 107 meq/L [facility] CO2 18 (L) 22 - 29 meq/L [facility] BUN 71 (H) 7 - 21 mg/dL [facility] Creatinine 12.77 (H) 0.57 - 1.25 [facility] mg/dL [facility] Glucose 113 (H) 70 - 105 mg/dL [facility] Calcium 9.4 8.4 - 10.2 [facility] mg/dL [facility] EGFR 4Comment: ESTIMATED mL/min/1.73 sq [facility] GFR IS NOT [facility] ACCURATE [place] CREATININE CLEARANCE IN PREDICTING GLOMERULAR FILTRATION RATE. ESTIMATED GFR IS NOT APPLICABLE FOR DIALYSIS PATIENTS. Specimen Blood - Venous line (physical object) Narrative Performed At [employer] Pantograph ID - RA Stearns [facility] Performing Organization Address City/[facility]/Zipcode Phone Number [facility] [address] [place] [address] CENTER CBC with platelet count + automated diff (12/15/2019 2:32 AM CDT)Only the most recent of2 resultswithin the time period is included. Pathologist Sig nature WBC 9.0 3.5 - 10.5 [facility] RBC 3.66 (L) 4.63 - 6.08 [facility] Hemoglobin 11.5 (L) 13.7 - 17.5 [facility] GM/DL [facility] Hematocrit 35.1 (L) 40.1 - 51.0 % [facility] MCV 95.9 (H) 79.0 - 92.2 fL [facility] MCH 31.4 25.7 - 32.2 pg [facility] MCHC 32.8 32.3 - 36.5 [facility] GM/DL [facility] RDW 14.0 11.6 - 14.4 % [facility] Platelets 225 150 - 450 K/CU [facility] MM [facility] MPV 9.9 9.4 - 12.4 fL [facility] nRBC 0 0 - 0 /100 WBC [facility] % Neutros 72 % [facility] % Lymphs 19 % [facility] % Monos 7 % [facility] % Eos 2 % [facility] % Baso 1 % [facility] # Neutros 6.46 (H) 1.78 - 5.38 [facility] # Lymphs 1.67 1.32 - 3.57 [facility] # Monos 0.60 0.30 - 0.82 [facility] # Eos 0.14 0.04 - 0.54 [facility] # Baso 0.11 (H) 0.01 - 0.08 [facility] Immature 0 0 - 1 % [facility] Granulocytes-Relative [facility] Specimen Blood - Entire right upper arm (body str ucture) Performing Organization Address City/State/Zipcode Phone Number [facility] [address] [place] [address] CENTER Arterial Doppler Leg, Right (12/15/2019 2:25 AM CDT) [facility] Sig nature Ejection Fraction [facility] Specimen Impressions Performed At Right Impression [facility] 1. There is no pseudoaneurysm visualized . 2. There is a non-vascularized structure measuring 1.82 x 3.46 cm; suggestive of a hematoma. 3. There is no venous obstruction or arteriovenous fistula visualized. 4. The common femoral artery flow is biphasic with a velocity of 133 cm/sec. (within normal range). Conclusions Summary Duplex imaging of the right groin area was performed. The vessels were adequately visualized. There was no evidence of a pseudoaneurysm, venous obstruction or arteriovenous fistula in the right groin area. There was a non-vascularized structure measuring 1.82 x 3.46 cm; suggestive of a hematoma. Signature Velocities are measured in cm/s ; Diameters are measured in cm Narrative Performed At [facility] - Pseudoaneurysm Survey [facility] Demographics Patient Name VIKA DUNBAR, Date of Study 12/15/2019 ALEJANDRO WALDEN Age 54 Visit Number [id number] Gender Male Accession Number [id number] Date of 1965 Referring Bella Christianson MD Room Number 606 Physician Shake Packer Kylah Escoto T Interpreting Physician KARO Mann Procedure Type of Study: Pseudoaneurysm: PSEUDOANEURYSM, GROIN DOPPLER RIGHT. Indications for Study:Rule out pseudoane urysm. Patient Status:Routine. Study Location:Portable. Technical Quality:Adequate visualization . - Results were reported to:SANJAY Lacy @ 2:25 am. Risk Factors History of Disease + +----+ + !Diagnosis !Date!Comments ! + +----+ + !History/Risk Factors:! !Former smoker, hypertension, Diabetes, ESRD ! + +----+ + Procedure Note Interface, External Ris In - 12/15/2019 8:16 AM CDT [facility] - Pseudoaneurysm Survey Demographics Patient Name VIKA DUNBAR, Date of Study 12/15/2019 ALEJANDRO WALDEN Age 54 Visit Number [id number] Gender Male Accession Number [id number] Date of 1965 Referring Bella Christianson MD Room Number 606 Physician Shake Packer Kylah Escoto T Interpreting Nancy Granda Physician Procedure Type of Study: Pseudoaneurysm: PSEUDOANEURYSM, GROIN D OPPLER RIGHT. Indications for Study:Rule out pseudoane urysm. Patient Status:Routine. Study Location:Portable. Technical Quality:Adequate visualization . - Results were reported to:SANJAY Lacy @ 2:25 am. Risk Factors History of Disease + +----+ + !Diagnosis !Date!Comments ! + +----+ + !History/Risk Factors:! !Former smoke r, hypertension, Diabetes, ESRD ! + +----+ + Impressions Right Impression 1. There is no pseudoaneurysm visualized . 2. There is a non-vascularized structure measuring 1.82 x 3.46 cm; suggestive of a hematoma. 3. There is no venous obstruction or art eriovenous fistula visualized. 4. The common femoral artery flow is bip hasic with a velocity of 133 cm/sec. (within normal range). Conclusions Summary Duplex imaging of the right groin area was performed. The vessels were adequately visualized. There was no mehdi dence of a pseudoaneurysm, venous obstruction or arteriovenous fistula in the right groin area. There was a non-vascularized structure measuring 1. 82 x 3.46 cm; suggestive of a hematoma. Signature Velocities are measured in cm/s ; Diamet ers are measured in cm Performing Organization Address City/State/Zipcode Phone Number [facility] Prothrombin time/INR (12/14/2019 9:24 AM CDT)Only the most recent of2 results within the time period is included. Pathologist Sig nature Protime 15.0 (H) 11.9 - 14.2 seconds [facility] INR 1.21 <=5.90 [facility] Specimen Blood Narrative Performed At Effective 09/28/2018: PT Reference Range [facility] Change New: 11.9-14.2 Previous: 11.7-14.7 RECOMMENDED COUMADIN/WARFARIN INR THERAPY RANGES STANDARD DOSE: 2.0-3.0 Includes: PROPHYLAXIS for venous thrombosis, systemic embolization; TREATMENT for venous thrombosis and/or pulmonary embolus. HIGH RISK: Target INR is 2.5-3.5 for patients wiht mechanical heart valves. Performing Organization Address City/State/Zipcode Phone Number [address] [address] CENTER CBC (Hemogram only) (12/14/2019 9:24 AM CDT) Pathologist Sig nature WBC 6.8 3.5 - 10.5 K/L [facility] RBC 4.26 (L) 4.63 - 6.08 M/L [facility] Hemoglobin 13.4 (L) 13.7 - 17.5 GM/DL [facility] Hematocrit 40.3 40.1 - 51.0 % [facility] MCV 94.6 (H) 79.0 - 92.2 fL [facility] MCH 31.5 25.7 - 32.2 pg [facility] MCHC 33.3 32.3 - 36.5 GM/DL [facility] RDW 14.1 11.6 - 14.4 % [facility] Platelets 243 150 - 450 K/CU MM [facility] MPV 9.3 (L) 9.4 - 12.4 fL [facility] nRBC 0 0 - 0 /100 WBC [facility] Specimen Blood Performing Organization Address City/State/Zipcode Phone Number [facility] [address] [place] [address] CENTER SARS-CoV2/RT-PCR ([facility]) (12/14/2019 8:40 AM CDT) SARS-COV2/RT-PCR Negative Not Detected, [facility] Negative, See [facility] external report CENTER for linked test SARS-COV-2 BSC [facility] PERFORMING LAB [facility] Specimen Other - Nasopharyngeal wall structure (b ganga structure) Narrative Performed At Negative results do not preclude SARS-CoV-2 [facility] infection and should not be used as the sole basis for patient management decisions. Negative results must be combined with clinical observations, patient history, and epidemiological information. A false negative result may occur if a specimen is improperly collected, transported or handled. The limit of detection for this assay is 250 copies/mL. This SARS CoV-2 test is a rapid, real-time RT-PCR test intended for the qualitative detection of nucleic acid from SARS-CoV-2 in a nasopharyngeal swab specimen collected from individuals suspected of COVID-19 by their healthcare provider. This test has not been Food and Drug Administration (FDA) cleared or approved and has been authorized by FDA under an Emergency Use Authorization (EUA). This EUA will be effective until the declaration that circumstances exist justifying the authorization of the emergency use of in vitro diagnostic tests for detection and/or diagnosis of COVID-19 is terminated under Section 564(b)(2) of the Act or the EUA is revoked under Section 564(g) of the Act. Fact Sheet for Healthcare Providers: https://www.Go Try It [employer].Tune/Documents/Xpert%20Xpre ss%20SARS%20CoV-2/Fact%20Sheets/302-3802%20SAR S-COV-2%20HEALTHCARE%20PROVIDERS%20FACT%20SHEE T.pdf Fact Sheet for Healthcare Patients: https://www.[employer]/Documents/Xpert%20Xpre ss%20SARS%20CoV-2/Fact%20Sheets/302-3801%20SAR S-COV-2%20PATIENT%20FACT%20SHEET.pdf Performing Laboratory: [address] [address] Performing Organization Address City/[facility] Phone Number [address] [address] [place] ECG 12 lead (12/14/2019 8:07 AM CDT)Only the most recent of2 resultswithin the time period is included. Specimen Narrative Performed At Ventricular Rate 73 BPM GE MUSE Atrial Rate 73 BPM P-R Interval 184 ms QRS Duration 100 ms Q-T Interval 400 ms QTC Calculation(Bazett) 440 ms P Bynum 59 degrees R Bynum 75 degrees T Bynum 122 degrees Normal sinus rhythm Nonspecific T wave abnormality Abnormal ECG When compared with ECG of 13-JUL-2019 07 :43, No significant change was found Confirmed by MD Harding Roberto ([id number]) on 12/13 2:18:32 PM Procedure Note Interface, External Ris In - 12/14/2019 2:18 PM CDT Ventricular Rate 73 BPM Atrial Rate 73 BPM P-R Interval 184 ms QRS Duration 100 ms Q-T Interval 400 ms QTC Calculation(Bazett) 440 ms P Bynum 59 degrees R Bynum 75 degrees T Bynum 122 degrees Normal sinus rhythm Nonspecific T wave abnormality Abnormal ECG When compared with ECG of 13-JUL-2019 07 :43, No significant change was found Confirmed by MD Harding Roberto ([id number]) on 12/14/2019 2:18:32 PM Performing Organization Address City/[facility] Cent[facility]ode Phone Number [facility] [place] Urine culture (11/14/2019 12:16 PM CDT)Only the most recent of2 resultswithin the time period is included. Pathologist Sig nature Result 40-49,000 col/mL [facility] Enterococcus faecalis [facility] (A) Specimen Urine Narrative Performed At <10,000 col/mL skin maria a [facility] Organism Antibiotic Method Susceptibility Enterococcus faecalis Ampicillin <=2: Susce ptible Enterococcus faecalis Linezolid 2: Suscept ible Enterococcus faecalis Nitrofurantoin <=16: Susc eptible Enterococcus faecalis Tetracycline >=16: Resi stant Enterococcus faecalis Vancomycin 2: Suscept ible Performing Organization Address City/State/Zipcode Phone Number [facility] [address] [place] [address] CENTER Ultrasound retroperitoneal complete (08/03/2019) Narrative Performed At This result has an attachment that is no t available. TRANSFUSION SERVICE REPORT - SCAN (07/14/2019 6:06 PM CDT)Only the most recent of2 resultswithin the time period is included. Narrative Performed At This result has an attachment that is no t available. ECHOCARDIOGRAM REPORT - SCAN (07/13/2019 9:13 PM CDT) Narrative Performed At This result has an attachment that is no t available. PERIPHERAL VASCULAR REPORT - SCAN (07/13/2019 9:11 PM CDT) Narrative Performed At This result has an attachment that is no t available. Treadmill tolerance(Non-Nuclear Treadmill) (07/13/2019 8:53 AM CDT) Specimen Narrative Performed At Protocol Name DOBUT TM-1 GE MUSE Time In Exercise Phase 00:15:04 Max. Systolic BP 150 mmHg Max Diastolic BP 69 mmHg Max Heart Rate 142 BPM Max Predicted Heart Rate 166 BPM Reason For Termination Target Heart Rate Achieved Reason for Test ESRD Target HR Formula (220 - Age)*100% Arrhythmias none Resting ECG Normal sinus rhythm ST Changes No Significant Changes Overall Impression Normal stress ECG Chest Pain none HR Response To Exercise Appropriate Response for Pharm acological Stress T BP Response To Exercise Appropriate Response for Pharm acological Stress T Functional Capacity Indeterminate due to Pharmacologic Stress Test Unithroid, Norvasc, Indomethacin, RENVELA No Complications. Confirmed by MD SOW RAYMOND ([id number]) on 0 1:38:26 PM Procedure Note Interface, External Ris In - 07/24/2019 1:38 PM CDT Protocol Name DOBUT TM-1 Time In Exercise Phase 00:15:04 Max. Systolic BP 150 mmHg Max Diastolic BP 69 mmHg Max Heart Rate 142 BPM Max Predicted Heart Rate 166 BPM Reason For Termination Target Heart Rate Achieved Reason for Test ESRD Target HR Formula (220 - Age)*100% Arrhythmias none Resting ECG Normal sinus rhythm ST Changes No Significant Changes Overall Impression Normal stress ECG Chest Pain none HR Response To Exercise Appropriate Resp onse for Pharmacological Stress T BP Response To Exercise Appropriate Resp onse for Pharmacological Stress T Functional Capacity Indeterminate due to Pharmacologic Stress Test Unithroid, Norvasc, Indomethacin, RENVELA No Complications. Confirmed by MD SOW RAYMOND ([id number]) on 07/24/2019 1:38:26 PM Performing Organization Address City/State/Zipcode Phone Number GE MUSE Stress Echo With Tracing (07/13/2019 8:51 AM CDT) Pathologist Sig nature Ejection Fraction Est EF of >70% [facility] MKCKESSON CPA Specimen Narrative Performed At Stress Echocardiography Report [facility] MDconnectMEESSON [facility] Demographics Patient Name VIKA DUNBAR, Date of Study 07/13/2019 ALEJANDRO WALDEN Gender Male Visit Number [id number] Race Room Number OP Number Date of 1965 Referring Naga sow Physician Chris Age 54 year(s) Shake Packer Maddi seymour, RDCS Interpreting Primitivo roberts Physician Fellow DONTE Delcid Procedure Type of Study Stress procedure:STRESS(TMT)ECHO W/TMT TRACING (Routine) Indications:Pre-surgical evaluation of organ transplant. Clinical History HGB 13.4 HCT 40.5 % DM, ESRD, HLD, HTN Contrast Medium: Definity. Amount - 2 ml Height: 64 inches Weight: 76.2 kg (168 lbs) BSA: 1.82 m^2 BMI: 28.84 kg/m^2 HR: 61 bpm BP: 133/74 mmHg Stress Stress Type: Pharmacologic Predicted HR: 166 bpm Summary Indications: pre surgical evaluation for organ transplantation Procedure done: Dobutamine stress echoc ardiogram. Complications: None Medications: Atropine: 0.75mg. Dobutamine infusion with peak rate of 40 mcg/kg/min. ECG: The resting heart rate was 60 bpm. Resting electrocardiogram showed normal sinus rhythm with no ischemic changes. The heart rate increased to 142 bpm which corresponded to 85% maximum predicted heart rate. There were no ischemic ECG changes noted. There were no arrhythmias noted. The blood pressure at baseline was 133/74 mm Hg and was 150/69 at peak stress. The patient did not develop any significant symptoms. Echocardiogram: Resting echocardiogram showed normal LV systolic function, estimated LVEF of 50-55%. Normal wall motion. At peak stress, the echocardiogram showed appropriate LV augmentation. Estimated LVEF of >70%. Normal wall motion. Conclusion: Adequate study (85% of predicted maximal heart rate achieved). There were no wall motion abnormalities on resting and stress echocardiogram that are concerning for ischemia or inducible ischemia. This is a negative Echocardiographic St ress Test. Signature Procedure Note Interface, External Ris In - 07/13/2019 11:07 AM CDT Stress Echocardiography Report Demographics Patient Name VIKA DUNBAR, Rene e of Study 07/13/2019 ALEJANDRO WALDEN Gen alfreda Male Visit Number [id number] Rac [place] m Number OP Number Date of 1965 Ref erring Naga Patience Perez Age 54 year(s) Son lyn Roberts, CS Int erpreting Joseph Montalvo MD Fellow DONTE Delcid Procedure Type of Study Stress procedure:STRESS(TMT)E CHO W/TMT TRACING (Routine) Indications:Pre-surgical evaluation of o rgan transplant. Clinical History HGB 13.4 HCT 40.5 % DM, ESRD, HLD, HTN Contrast Medium: Definity. Amount - 2 ml Height: 64 inches Weight: 76.2 kg (168 l bs) BSA: 1.82 m^2 BMI: 28.84 kg/m^2 HR: 61 bpm BP: 133/74 mmHg Stress Stress Type: Pharmacologic Predicted HR: 166 bpm Summary Indications: pre surgical evaluation fo r organ transplantation Procedure done: Dobutamine stress echoc ardiogram. Complications: None Medications: Atropine: 0.75mg. Dobutami ne infusion with peak rate of 40 mcg/kg/min. ECG: The resting heart rate was 60 bpm. Resting electrocardiogram showed normal sinus rhythm with no ischemic ch anges. The heart rate increased to 142 bpm which corresponded to 85% maxim um predicted heart rate. There were no ischemic ECG changes noted. There we re no arrhythmias noted. The blood pressure at baseline was 133/74 mm Hg a nd was 150/69 at peak stress. The patient did not develop any significant symptoms. Echocardiogram: Resting echocardiogram showed normal LV systolic function, estimated LVEF of 50-55%. Normal wall m otion. At peak stress, the echocardiogram showed appropriate LV au gmentation. Estimated LVEF of >70%. Normal wall motion. Conclusion: Adequate study (85% of pred icted maximal heart rate achieved). There were no wall motion abnormalities on resting and stress echocardiogram that are concerning for ischemia or inducible ischemia. This is a negative Echocardiographic St ress Test. Signature Performing Organization Address City/State/[facility] Cent[facility]ome Phone Number [facility] MKCKESSON CPACS 2D Echo W/Doppler(CW/PW/Color) (07/13/2019 8:02 AM CDT) Pathologist Sig nature Ejection Fraction [facility] Specimen Narrative Performed At Transthoracic Echocardiography Report (T TE) [facility] Demographics Patient Name VIKA DUNBAR, Date of Study 07/13/2019 ALEJANDRO WALDEN Gender Male Visit Number [id number] Race Room Number OP Number Date of 1965 Referring Naga sow Physician Chris Age 54 year(s) Shake Packer Maddi seymour, [facility] Interpreting Primitivo roberts, Physician Fellow DONTE Delcid Procedure Type of Study TTE procedure:2DECHO W DOPPLER(CW/PW/COLOR) (Routine) Indications:Pre-surgical evaluation of organ transplant. Clinical History HGB 13.4 HCT 40.5 % DM, ESRD, HLD, HTN Height: 64 inches Weight: 76.2 kg (168 lbs) BSA: 1.82 m^2 BMI: 28.84 kg/m^2 HR: 65 bpm BP: 133/74 mmHg Summary The left ventricle is chamber size (by vol index) is normal (female - LVED vol - 29-61ml/m2). LVEF by Mijares's method of disk assessment is lower limits of normal (50-55%) . Normal diastolic function. The right ventricular chamber size and systolic function are within normal limits. Estimated peak systolic PA pressure is 25-30 mmHg (normal range) . Signature Findings Technical Quality: Technically fair exam . Rhythm/BP Regular sinus rhythm during the exam. Left Ventricle Normal LV wall thickness. The left ventricle is chamber size (by vol index) is normal (female - LVED vol - 29-61ml/m2). LVEF by Mijares's method of disk assessment is lower limits of normal (50-55%) . Normal diastolic function. Left Atrium LA size is normal . Right Ventricle The right ventricular chamber size and systolic function are within normal limits. Right Atrium RA size is normal. Aortic Valve The aortic valve is not well visualized. Mitral Valve Normal MV structure based on available views. Mild mitral regurgitation. Tricuspid Valve TV structure appears normal based on available view s. Mild tricuspid regurgitation. Estimated peak systolic PA pressure is 25-30 mmHg (normal range) . Pulmonic Valve Normal PV structure and function by limited views and Doppler. Pericardium An echo lucent space is noted consistent with prominent pericardial fat pad. IVC/SVC/PA/PV/Pleural The estimated RA pressure by IVC dynamics 0-5mmHg . Chambers/Structures Left Atrium LA Volume: 29.88 ml LA Area: 16.6 cm^2 LA Vol. Index: 16 ml/m^2 Left Ventricle LVIDd: 4.73 cm LVIDs: 3.71 cm LV Septum Diastolic: 0.62 cm LV PW Diastolic: 0.45 cm LV FS: 21.6 % LVEDV Mijares's:52.92 ml LVESV Mijares's:23.99 ml LVEDVI: 29 ml/m^2 LVEF Mijares's: 54.7 % LVESVI: 13 ml/m^2 LVOT Diameter: 2.[address] Junction: 2.59 cm Ascending Aorta: 3.05 cm Doppler/Quantitative Measurements Aortic Valve Peak Velocity: 1.3 m/s Mean Velocity: 0.89 m/s Peak Gradient: 6.81 mmHg Mean Gradient: 3.6 mmHg AV Area (continuity): 3.16 cm^2 AV VTI: 26.37 cm AV DVI: 0.84 LVOT Peak Velocity: 1.16 m/s Peak Gradient: 5.35 mmHg Mean Velocity: 0.71 m/s Mean Gradient: 2.48 mmHg LVOT Diameter: 2.19 cm LVOT VTI: 22.13 cm LVOT Area: 3.77 cm^2 LVOT SV:83.32 ml LVOT CO: 5.42 l/min LVOT CI: 2.98 l/min/m^2 Procedure Note Interface, External Ris In - 07/13/2019 11:02 AM CDT Transthoracic Echocardiography Report (TTE) Demographics Patient Name VIKA DUNBAR, Rene e of Study 07/13/2019 ALEJANDRO WALDEN Gen alfreda Male Visit Number [id number] Rac e [place] stearns Number OP Number Date of 1965 Ref erring Naga Morin Joseph owusu Chris Age 54 year(s) Son lyn Roberts, CS Int erpreting Joseph Montalvo MD Fellow DONTE Delcid Procedure Type of Study TTE procedure:2DECHO W DOPPLE R(CW/PW/COLOR) (Routine) Indications:Pre-surgical evaluation of o rgan transplant. Clinical History HGB 13.4 HCT 40.5 % DM, ESRD, HLD, HTN Height: 64 inches Weight: 76.2 kg (168 l bs) BSA: 1.82 m^2 BMI: 28.84 kg/m^2 HR: 65 bpm BP: 133/74 mmHg Summary The left ventricle is chamber size (by vol index) is normal (female - LVED vol - 29-61ml/m2). LVEF by Mijares's me thod of disk assessment is lower limits of normal (50-55%) . Normal diastolic function. The right ventricular chamber size and systolic function are within normal limits. Estimated peak systolic PA pressure is 25-30 mmHg (normal range) . Signature Findings Technical Quality: Technically fair exam . Rhythm/BP Regular sinus rh ythm during the exam. Left Ventricle Normal LV wall t hickness. The left ventric le is chamber size (by vol index) is normal (femal e - LVED vol - 29-61ml/m2). LVEF by Mijares' s method of disk assessment is lower limits of normal (50-55%) . Normal diastolic function. Left Atrium LA size is ryne l . Right Ventricle The right ventri cular chamber size and systolic function are wit hin normal limits. Right Atrium RA size is ryne l. Aortic Valve The aortic valve is not well visualized. Mitral Valve Normal MV struct ure based on available views. Mild mitral regu rgitation. Tricuspid Valve TV structure rosie ears normal based on available views. Mild tricuspid r egurgitation. Estimated peak s ystolic PA pressure is 25-30 mmHg (normal range) . Pulmonic Valve Normal PV struct ure and function by limited views and Doppler. Pericardium An echo lucent s pace is noted consistent with prominent perica rdial fat pad. IVC/SVC/PA/PV/Pleural The estimated RA pressure by IVC dynamics 0-5mmHg . Chambers/Structures Left Atrium LA Volume: 29.88 ml LA Area: 16.6 cm^2 LA Vol. Index: 16 ml/m^2 Left Ventricle LVIDd: 4.73 cm LVIDs: 3.71 cm LV Septum Diastolic: 0.62 cm LV PW Diastolic: 0.45 cm LV FS: 21.6 % LVEDV Mijares's:52.92 ml LVESV Mijares's:23.99 ml LVEDVI: 29 ml/m^2 LVEF Mijares's: 54.7 % LVESVI: 13 ml/m^2 LVOT Diameter: 2.[address] Junction: 2.59 cm Asc ending Aorta: 3.05 cm Doppler/Quantitative Measurements Aortic Valve Peak Velocity: 1.3 m/s Mean Velocity: 0.89 m/s Peak Gradient: 6.81 mmHg Mean Gradient: 3.6 mmHg AV Area (continuity): 3.16 cm^2 AV VTI: 26.37 cm AV DVI: 0.84 LVOT Peak Velocity: 1.16 m/s Pea k Gradient: 5.35 mmHg Mean Velocity: 0.71 m/s Sowmya n Gradient: 2.48 mmHg LVOT Diameter: 2.19 cm LVO T VTI: 22.13 cm LVOT Area: 3.77 cm^2 LVO T SV:83.32 ml LVOT CO: 5.42 l/min LVO T CI: 2.98 l/min/m^2 Performing Organization Address [facility] Phone Number [facility] MKCKESSROHAN CPACS Type and Screen, Automated (07/13/2019 7:24 AM CDT) Pathologist Sig nature ABO/RH AUTOMATED O POSITIVE [facility] Ab Scrn NEGATIVE [facility] Specimen Blood Performing Organization Address [facility] Centercome Phone Number [address] [address] PSA (07/13/2019 7:24 AM CDT) Pathologist Sig nature PSA 0.5 0.0 - 4.0 ng/mL [facility] Specimen Blood Narrative Performed At [employer] Pantograph ID - [facility] Performing Organization Address [facility] Phone Number [address] [phone] CENTER Hemoglobin A1c (07/13/2019 7:24 AM CDT) Pathologist Sig nature Hemoglobin A1C 6.6 (H) 4.3 - 6.1 % [facility] Specimen Blood Narrative Performed At [employer] Pantograph ID - [id number] [facility] Performing Organization Address [facility] Phone Number [address] [address] CENTER Lipid panel (07/13/2019 7:24 AM CDT) Pathologist Sig nature Triglycerides 188 mg/dL [facility] [place] Cholesterol 263 mg/dL [facility] HDL 51 mg/dL [facility] LDL Calculated 174 mg/dL [facility] [place] Specimen Blood Narrative Performed At Triglyceride Reference Range: [facility] Low Risk <150 Borderline 150-199 High Risk 200-499 Very High Risk >=500 Cholesterol Reference Range: Low Risk <200 Borderline 200-239 High Risk >240 HDL Cholesterol Reference Range: Low Risk >=60 High Risk <40 LDL Cholesterol Reference Range: Optimal <100 Near Optimal 100-129 Borderline 130-159 High 160-189 Very High >=190 [employer] Pantograph ID - CHUCHO Jung Performing Organization Address City/State/Zipcode Phone Number [facility] [address] [place] [address] CENTER US abdomen complete (05/23/2019 12:02 PM POWDER NIPPER) Specimen Narrative Performed At FINAL REPORT [employer] TECHNIQUE: Grayscale ultrasound of the dawn sarah. INDICATION: 53-year-old man for renal tr ansplant evaluation. COMPARISON: None. FINDINGS: MIDLINE VASCULATURE: The visualized infe rior vena cava is patent. Portal vein is patent. The maximum visua lized aortic diameter is 2.4 cm. LIVER: The liver is normal in size and e chogenicity with smooth contour. No focal lesions. BILIARY: Gallbladder: No gallstones or sludge. No gallbladder wall thickening, pericholecystic fluid, or distention. Ne gative sonographic Villa sign. Common bile duct measures 0.4 cm, within normal limits. No intrahepatic biliary ductal dilatation. PANCREAS: The pancreas is not clearly vi sualized due to overlying bowel gas. SPLEEN: No splenomegaly. PERITONEUM: No free fluid. KIDNEYS: Both kidneys are echogenic, whi ch limits accurate measurement. The right kidney measures a pproximately 6.9 x 4.3 x 2.4 cm with cortical thickness of 0.8 cm. Th e left kidney measures approximately 7.6 x 3.8 x 3.7 cm with co rtical thickness of 1.7 cm. No hydronephrosis. No sonographically ev ident solid mass. Simple cysts in the right kidney measure 1.5 x 1.6 x 1.7 cm and 1.1 x 0.9 x 1.4 cm. IMPRESSION: Echogenic kidneys, consistent with medic al renal disease. Two simple right renal cysts. Signed: Tamika Phipps MD Report Verified Date/Time: 05/23/2019 16:14:42 Reading Location: [facility] 10th Flr Radiolog y Reading Room Procedure Note Interface, External Ris In - 05/23/2019 4:16 PM POWDER NIPPER FINAL REPORT TECHNIQUE: Grayscale ultrasound of the dawn sarah. INDICATION: 53-year-old man for renal tr ansplant evaluation. COMPARISON: None. FINDINGS: MIDLINE VASCULATURE: The visualized infe rior vena cava is patent. Portal vein is patent. The maximum visua lized aortic diameter is 2.4 cm. LIVER: The liver is normal in size and e chogenicity with smooth contour. No focal lesions. BILIARY: Gallbladder: No gallstones or sludge. No gallbladder wall thickening, pericholecystic fluid, or distention. Ne gative sonographic Villa sign. Common bile duct measures 0.4 cm, within normal limits. No intrahepatic biliary ductal dilatation. PANCREAS: The pancreas is not clearly vi sualized due to overlying bowel gas. SPLEEN: No splenomegaly. PERITONEUM: No free fluid. KIDNEYS: Both kidneys are echogenic, whi ch limits accurate measurement. The right kidney measures a pproximately 6.9 x 4.3 x 2.4 cm with cortical thickness of 0.8 cm. Th e left kidney measures approximately 7.6 x 3.8 x 3.7 cm with co rtical thickness of 1.7 cm. No hydronephrosis. No sonographically ev ident solid mass. Simple cysts in the right kidney measure 1.5 x 1.6 x 1.7 cm and 1.1 x 0.9 x 1.4 cm. IMPRESSION: Echogenic kidneys, consistent with medic al renal disease. Two simple right renal cysts. Signed: Tamika Phipps MD Report Verified Date/Time: 05/23/2019 1 6:14:42 Reading Location: [address] Radiolog [address] Reading Room Performing Organization Address City/State/Zipcode Phone Number [employer] XR chest 2 views (05/23/2019 11:16 AM POWDER NIPPER) Specimen Narrative Performed At FINAL REPORT [employer] TECHNIQUE: Frontal and lateral views of the chest. INDICATION: 53-year-old man for renal tr ansplant evaluation. COMPARISON: None. FINDINGS: LINES/TUBES: None. LUNGS: The lungs are well inflated. Stre aky airspace opacities in both lung bases. PLEURA: No pleural effusion or pneumotho rax. HEART AND MEDIASTINUM: The cardiomediast inal silhouette is within normal limits. Atherosclerotic calcifica tions in the thoracic aorta. SOFT TISSUES AND BONES: Degenerative lazaro nges of the visualized spine. Soft tissues are unremarkable. IMPRESSION: Bibasilar airspace opacities, likely ate lectasis. Signed: Tamika Phipps MD Report Verified Date/Time: 05/23/2019 16:02:27 Reading Location: [address] Radiolog y Reading Room Procedure Note Interface, External Ris In - 05/23/2019 4:04 PM POWDER NIPPER FINAL REPORT TECHNIQUE: Frontal and lateral views of the chest. INDICATION: 53-year-old man for renal tr ansplant evaluation. COMPARISON: None. FINDINGS: LINES/TUBES: None. LUNGS: The lungs are well inflated. Stre aky airspace opacities in both lung bases. PLEURA: No pleural effusion or pneumotho rax. HEART AND MEDIASTINUM: The cardiomediast inal silhouette is within normal limits. Atherosclerotic calcifica tions in the thoracic aorta. SOFT TISSUES AND BONES: Degenerative lazaro nges of the visualized spine. Soft tissues are unremarkable. IMPRESSION: Bibasilar airspace opacities, likely ate lectasis. Signed: Tamika Phipps MD Report Verified Date/Time: 05/23/2019 1 6:02:27 Reading Location: [address] Radiolog y Reading Room Performing Organization Address City/State/Zipcode Phone Number [facility] HLA TYPING CII (05/23/2019 10:39 AM POWDER NIPPER) Pathologist Sig nature HLA-DR AG1 16 [facility] HLA TESTING HLA-DR AG2 1 [facility] TEST[facility] HLA-DR AG5-1 51 [facility] HLA TESTING HLA-DQA1 AG 1-1 05 [facility] HLA TESTING HLA-DQA1 AG 1-2 01 [facility] HLA TESTING HLA-DQB1 AG 1-1 7 [facility] HLA TESTING HLA-DQB1 AG 1-2 5 [facility] HLA TESTING HLA-DPA1 AG 1-1 01 [facility] HLA TEST[facility] HLA-DPA1 AG 1-2 01 [facility] TEST[facility] HLA-DPB1 AG 1-1 04:01 [facility] TEST[facility] HLA-DPB1 AG 1-2 04:01 [facility] HLA TEST[facility] Specimen Blood Narrative Performed At Disclaimer: [facility] HLA TEST[facility] This test was developed and its performance characteri stics determined by the [facility] Laboratory. It has not been ayaan red or approved by the U.S. Food and Drug Administration. The FDA has determined that such clearance or approval is not nece ssary. This test is used for clinical purposes. It should not be r egarded as investigational or for research. This laboratory is ce rtified under the Clinical Laboratory Improvement Amendments o f 1988 (CLIA-88) as qualified to perform high complexity clin ical laboratory testing. Performing Organization Address City/State/[facility] Cent[facility] Phone Number [facility] HLA TESTING [address] Harry, MS: [place] [address] [id number], CLIA#[id number] CAP#[id number] UNOS#[id number] HLA TYPING CI (05/23/2019 10:39 AM POWDER NIPPER) [facility] HLA-A AG1 2 [facility] TEST[facility] HLA-A AG2 3 [facility] TEST[facility] HLA-B AG1 62 [facility] HLA TESTING HLA-B AG2 35 [facility] HLA TESTING HLA-C AG1 10 [facility] HLA TESTING HLA-C AG2 4 [facility] [facility] HLA [facility]ING HLA-B BW1 6 [facility] HLA TESTING HLA-B BW2 6 [facility] HLA TESTING Specimen Blood Narrative Performed At Disclaimer: [facility] HLA TESTING This test was developed and its performance characteri stics determined by the [facility] Laboratory. It has not been ayaan red or approved by the U.S. Food and Drug Administration. The FDA has determined that such clearance or approval is not nece ssary. This test is used for clinical purposes. It should not be r egarded as investigational or for research. This laboratory is ce rtified under the Clinical Laboratory Improvement Amendments o f 1988 (CLIA-88) as qualified to perform high complexity clin ical laboratory testing. Performing Organization Address City/[facility] Phone Number [facility] HLA TESTING ONE Humphrey Harry, MS: [place] [address] [id number], CLIA#[id number] CAP#[id number] UNOS#[id number] FLOW PRA CLASS II WITH REFLEX TO ANTIBODY SPECIFICITY (05/23/2019 10:39 AM POWDER NIPPER) Pathologist Sig nature Flow Class II Percent 3 [facility] HLA TESTING Positive Specimen Blood Narrative Performed At Disclaimer: [facility] HLA TESTING This test was developed and its performance characteri stics determined by the [facility] Laboratory. It has not been ayaan red or approved by the U.S. Food and Drug Administration. The FDA has determined that such clearance or approval is not nece ssary. This test is used for clinical purposes. It should not be r egarded as investigational or for research. This laboratory is ce rtified under the Clinical Laboratory Improvement Amendments o f 1988 (CLIA-88) as qualified to perform high complexity clin ical laboratory testing. Performing Organization Address City/[facility] Phone Number [facility] HLA TESTING ONE Humphrey Harry, MS: [place] [address] [id number], CLIA#[id number] CAP#[id number] UNOS#[id number] FLOW PRA CLASS I WITH REFLEX TO ANTIBODY SPECIFICITY (05/23/2019 10:39 AM POWDER NIPPER) Pathologist Sig nature Flow Class I Percent 0 [facility] HLA TESTING Positive Specimen Blood Narrative Performed At Disclaimer: [facility] HLA TESTING This test was developed and its performance characteri stics determined by the [facility] Laboratory. It has not been ayaan red or approved by the U.S. Food and Drug Administration. The FDA has determined that such clearance or approval is not nece ssary. This test is used for clinical purposes. It should not be r egarded as investigational or for research. This laboratory is ce rtified under the Clinical Laboratory Improvement Amendments o f 1988 (CLIA-88) as qualified to perform high complexity clin ical laboratory testing. Performing Organization Address City/State/Zipcode Phone Number [facility] HLA TESTING ONE Humphrey Harry, MS: [place], [place] [address] [id number], CLIA#[id number] CAP#[id number] UNOS#[id number] T Spot TB (05/23/2019 10:39 AM POWDER NIPPER) Pathologist Sig nature T-Spot TB Negative [facility] Neg Ctrl Spot Count 0 [facility] Panel A Spot 1 [facility] Panel B Spot 0 [facility] Pos Ctrl Spot Ct 0 [facility] Scan Result [facility] Specimen Blood Narrative Performed At This result has an attachment that is no t available. Performing Organization Address City/State/Zipcode Phone Number [facility] [address] [place] [address] LAB[address]ATOR[address] PT/aPTT (05/23/2019 10:39 AM POWDER NIPPER) Pathologist Sig nature Protime 12.8 11.9 - 14.2 seconds [facility] INR 1.0 <=5.9 [facility] PTT 30.4 22.5 - 36.0 seconds [facility] Specimen Blood Narrative Performed At Effective 09/28/2018: PT Reference Range [facility] Change New: 11.9-14.2 Previous: 11.7-14.7 RECOMMENDED COUMADIN/WARFARIN INR THERAPY RANGES STANDARD DOSE: 2.0-3.0 Includes: PROPHYLAXIS for venous thrombosis, systemic embolization; TREATMENT for venous thrombosis and/or pulmonary embolus. HIGH RISK: Target INR is 2.5-3.5 for patients wiht mechanical heart valves. Performing Organization Address City/State/Zipcode Phone Number [address] [address] CENTER HIV-1 Antigen with HIV-1/2 Antibody (05/23/2019 10:39 AM POWDER NIPPER) Pathologist Sig nature HIV-1 Antigen with Nonreactive Nonreactive [facility] HIV 1&2 Antibody [facility] Specimen Blood Narrative Performed At [facility] ID - [facility] Performing Organization Address City/State/Zipcode Phone Number [address] [address] CENTER Hepatitis C Antibody (05/23/2019 10:39 AM POWDER NIPPER) Pathologist Sig nature Hepatitis C Ab Nonreactive Nonreactive [facility] Specimen Blood Narrative Performed At [facility] ID - [facility] Performing Organization Address City/State/Zipcode Phone Number [address] [address] CENTER Cytomegalovirus antibody, IgM (05/23/2019 10:39 AM POWDER NIPPER) Pathologist Sig nature CMV IGM Negative Negative, Equivocal [facility] Specimen Blood Narrative Performed At CMV IgM Result Interpretation: [facility] </= 0.8 Al Negative 0.9-1.0 Al Equivocal >/= 1.1 Al Positive Performing Organization Address [facility] Centercome Phone Number [address] [address] CENTER Hepatitis B core antibody, IgM (05/23/2019 10:39 AM POWDER NIPPER) Pathologist Sig nature Hep B C IgM Nonreactive Nonreactive [facility] Specimen Blood Narrative Performed At [facility] Performing Organization Address [facility] Centercome Phone Number [address] [address] [place] EBV-VCA antibody, IgM (05/23/2019 10:39 AM POWDER NIPPER) NIHARIKA HOOPER VIRAL Negative Negative, Equivocal [facility] CAPSID ANTIGEN IGM [facility] Specimen Blood Narrative Performed At Niharika Hooper Viral Capsid Antigen IgM Result [facility] Interpretation: </= 0.8 Al Negative 0.9-1.0 Al Equivocal >/= 1.1 Al Positive Performing Organization Address [facility] Centercode Phone Number [address] [address] CENTER EBV-VCA antibody, IgG (05/23/2019 10:39 AM POWDER NIPPER) NIHARIKA HOOPER VIRAL Positive (A) Negative, [facility] CAPSID ANTIGEN IGG Equivocal [facility] Specimen Blood Narrative Performed At Niharika Hooper Viral Capsid Antigen IgG Result [facility] Interpretation: </= 0.8 Al Negative 0.9-1.0 Al Equivocal >/= 1.1 Al Positive Performing Organization Address [facility] Centercode Phone Number [address] [address] CENTER Blood typing, automated (05/23/2019 10:39 AM POWDER NIPPER) Pathologist Sig formerly [facility] ABO/RH AUTOMATED O POSITIVE [facility] Specimen Blood Performing Organization Address [facility] Centercome Phone Number [address] [address] RPR (05/23/2019 10:39 AM POWDER NIPPER) Pathologist Sig formerly [facility] RPR Nonreactive Nonreactive [facility] Specimen Blood Performing Organization Address [facility] Phone Number [address] [address] [place] Hepatitis B surface antibody (05/23/2019 10:39 AM POWDER NIPPER) Pathologist Sig formerly [facility] Hep B S Ab 14,393.3 (H) <8.0 mIU/mL [facility] Specimen Blood Narrative Performed At [facility] Performing Organization Address [facility] Phone Number [address] [address] CENTER Cytomegalovirus antibody, IgG (05/23/2019 10:39 AM POWDER NIPPER) CYTOMEGALOVIRUS, Positive (A) Negative, [facility] IGG Equivocal [facility] Specimen Blood Narrative Performed At CMV IgG Result Interpretation: [facility] </= 0.8 Al Negative 0.9-1.0 Al Equivocal >/=1.1 Al Positive Performing Organization Address [facility] Centercome Phone Number [address] [address] CENTER Direct [facility] (RENE)/Direct [place] (05/23/2019 10:39 AM POWDER NIPPER) Pathologist Sig nature Direct [facility]-IGG NEGATIVE [facility] Direct [facility]HG-C3B, C3D NEGATVIE [facility] Specimen Blood Performing Organization Address [facility] Centercome Phone Number [address] [address] Varicella Zoster Antibody, IgG (05/23/2019 10:39 AM POWDER NIPPER) Pathologist Sig nature Varicella IgG 3.4 [facility] Specimen Blood Narrative Performed At VARICELLA ZOSTER RESULT INTERPRETATIONS: [facility] <=0.8 Al Nonreactive: Presumed non-immune to VZV 0.9-1.0 Al Equivocal >=1.1 Al Reactive: Presumed immune to VZV Performing Organization Address [facility] Number [address] [address] CENTER Uric Acid (05/23/2019 10:39 AM POWDER NIPPER) Pathologist Sig nature Uric Acid 5.5 2.6 - 7.2 mg/dL [facility] Specimen Blood Narrative Performed At [facility] Pant[facility] ID - [facility] Performing Organization Address [facility] Phone Number [address] [address] CENTER PTH, Intact (05/23/2019 10:39 AM POWDER NIPPER) Pathologist Sig nature PTH 430.9 (H) 8.5 - 72.5 pg/mL [facility] Specimen Blood Narrative Performed At [facility] ID - [facility] [place] Performing Organization Address [facility] Phone Number [address] [address] CENTER Lactate Dehydrogenase (LDH) (05/23/2019 10:39 AM POWDER NIPPER) Pathologist Sig nature LDH 249 (H) 125 - 220 U/L [facility] Specimen Blood Narrative Performed At [facility] ID - [facility] Performing Organization Address City/[facility]/Zipcode Phone Number [facility] [address] [place] [address] CENTER Gamma Glutamyl Transferase (GGT) (05/23/2019 10:39 AM POWDER NIPPER) Pathologist Sig nature GGT 20 9 - 64 U/L [facility] Specimen Blood Narrative Performed At [facility] Performing Organization Address City/State/Zipcode Phone Number [facility] [address] [place] [address] [place] Comprehensive metabolic panel (05/23/2019 10:39 AM POWDER NIPPER) Protein, Total 9.3 (H) 6.0 - 8.3 [facility] gm/dL [facility] Albumin 5.4 (H) 3.5 - 5.0 [facility] g/dL [facility] Alkaline 73 40 - 150 U/L [facility] Phosphatase [facility] Total Bilirubin 0.5 0.2 - 1.2 [facility] mg/dL [facility] Sodium 140 136 - 145 [facility] meq/L [facility] Potassium 3.8 3.5 - 5.1 [facility] meq/L [facility] Chloride 100 98 - 107 [facility] meq/L [facility] CO2 26 22 - 29 meq/L [facility] BUN 49 (H) 7 - 21 mg/dL [facility] Creatinine 8.13 (H) 0.57 - 1.25 [facility] mg/dL [facility] Glucose 98 70 - 105 [facility] mg/dL [facility] Calcium 9.3 8.4 - 10.2 [facility] mg/dL [facility] AST 14 5 - 34 U/L [facility] ALT 13 6 - 55 U/L [facility] EGFR 7Comment: mL/min/1.73 [facility] ESTIMATED GFR IS sq [facility] NOT ACCURATE MEDICAL CENTER CREATININE CLEARANCE IN PREDICTING GLOMERULAR FILTRATION RATE. ESTIMATED GFR IS NOT APPLICABLE FOR DIALYSIS PATIENTS. Specimen Blood Narrative Performed At [facility] ID - [facility] Performing Organization Address City/State/Zipcode Phone Number [facility] [address] [place] [address] CENTER Urinalysis, Routine (05/23/2019 10:34 AM POWDER NIPPER) Color, UA Yellow [facility] Clarity, UA Clear [facility] Specific [place], 1.018 1.001 - 1.035 [facility] pH, UA 6.5 5.0 - 8.0 [facility] Protein, UA 600 mg/dL (A) Negative [facility] Glucose, UA 500 mg/dL (A) Negative [facility] Ketones, UA Negative Negative [facility] Bilirubin, UA Negative Negative [facility] Blood, UA Small (A) Negative [facility] Nitrite, UA Negative Negative [facility] Leukocytes, UA Negative Negative [facility] Urobilinogen, UA 0.2 0.2 - 1.0 mg/dL [facility] RBC, UA <1 /HPF [facility] WBC, UA <1 /HPF [facility] Specimen Source [facility] Specimen Urine Narrative Performed At [employer] ID - [auto] [facility] [employer] Pant[facility] ID - tech Performing Organization Address City/State/Zipcode Phone Number [facility] [address] [place] [address] CENTER after 04/22/2019 [place] [id number] Advance Directives For more information, please contact: [phone] Code Status Date Activated Date Inactivated Comments Full Code 12/14/2019 3:26 PM 12/16/2019 7:30 PM This code status was determined by: Patient
--- OUTSIDE RECORDS SUMMARY | 2020-04-22 18:00 | XMS REPORT | Continuity of Care Document ---
:1965 Author Organization [facility] t Address [address] [place] [address] Care Team Providers Name Role Phone Asked, Pcp Primary Care Physician Unavailable Flory Scales Attending Clinician Unavailable Maikel GRACE, Y Attending Clinician Unavailable Elise HUDDLESTON Attending Clinician Sabi GRACE Attending Clinician Unavailable ELISE Attending Clinician Unavailable Nora Nielson MD Attending Clinician NORA NIELSON Attending Clinician Unavailable Mitch Attending Clinician Unavailable Gio Attending Clinician Unavailable Stacy GRACE, P Attending Clinician Unavailable Puma HUDDLESTON Attending Clinician Arron Attending Clinician Unavailable Doctor Unassigned, Name Attending Clinician Unavailable Jossy ALEXANDRE, Luis Fernando Attending Clinician Unavailable Ally GRACE Attending Clinician Unavailable Krzysztof HUDDLESTON, SMarvin Attending Clinician Floresita Guerrero MD Attending Clinician Ivanna GRACE, M Attending Clinician ELISE Admitting Clinician Unavailable Payers Payer Name Policy Type Policy Effective Date Expiration Date Sour ce Number MEDICAREMEDICARE A [id number] 2018 BRITT Gutierrez [id number] 00:00:00 - Medical [facility] Center MEDICAIDMEDICAID OF [id number] 2019 BRITT Gutierrez [id number] 00:00:00 - [facility] Problems Condition Condition Condition Status Onset Resolution Last Treating Co mments Source Name Details Category Date Date Treatment Clinician Date Volume Volume Disease Active 2020-[address] [facility] overload overload 8-14 [facility] Medical 00 Center Groin Groin Disease Active [facility] pain, pain, 8-14 [facility] - chronic, chronic, 00:00: Medica l right right 00 Center Pre-transp Pre-transp Disease Active [facility] lant lant 8-13 [facility] - evaluation evaluation 00:00: Me dical for ESRD for ESRD 00 Center (end stage (end stage renal renal disease) disease) ESRD (end ESRD (end Disease Active [facility] stage stage 3-12 [facility] - renal renal 00:00: Medical disease) disease) 00 Center on on dialysis dialysis Hypothyroi Hypothyroi Disease Active [facility] dism, dism, 3-12 [facility] - unspecifie unspecifie 00:00: Me dical d type d type 00 Center 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[facility] - hyroidism hyroidism 00:00: Medi benjy of renal of renal 00 Center origin origin Hyperlipid Hyperlipid Disease Active [facility] emia, emia, 3-12 [facility] - unspecifie unspecifie 00:00: Me dical d d 00 Center hyperlipid hyperlipid emia type emia type Obesity Obesity Disease Active [facility] (BMI (BMI 3-12 [facility] - 30-39.9) 30-39.9) 00:00: Medica l 00 Center Pre-transp Pre-transp Disease Active [facility] lant lant 05-23 [facility] - evaluation evaluation 00:00: Me dical for for 00 Center chronic chronic kidney kidney disease disease Essential Essential Disease Active [facility] hypertensi hypertensi -21 [facility] - on on 00:00: Medical 00 Center Type 2 Type [address] [facility] diabetes diabetes -21 [facility] - mellitus mellitus 00:00: Medica l with with 00 Center chronic chronic kidney kidney disease on disease on chronic chronic dialysis, dialysis, without without long-term long-term current current use of use of insulin insulin Allergies, Adverse Reactions, Alerts This patient has no known allergies or adverse reactions. Family History Family Member Diagnosis Comments Start Date Stop Date Source Natural brother No Known Problem [facility] Natural father Alcohol abuse [facility] Natural mother No Known Problem [facility] Natural sister Diabetes [facility] Natural sister Kidney disease [facility] Natural sister No Known Problem [facility] Social History Social Habit Start Date Stop Date Quantity Comments Source History of tobacco Current smoker I [facility] use [facility] History SDOH [facility] - Alcohol Std Drinks Medica Center History SDOH [facility] - Alcohol Binge Medical Odette ter Sex Assigned At [facility] Cigarettes smoked 2019-12-17 2019-12-17 [facility] - current (pack per 00:00:00 00:00:00 [facility] day) - Reported Cigarette 2019-12-17 2019-12-17 [facility] - pack-years 00:00:00 00:00:00 [facility] Tobacco use and 2019-12-17 2019-12-17 Never used [facility] - exposure 00:00:00 00:00:00 [facility] Alcohol intake 2019-12-17 2019-12-17 Current [facility] - 00:00:00 00:00:00 non-drinker of Medical Ce nter alcohol (finding) History SDMA 2019-05-23 2019-05-23 1 [facility] - Alcohol Frequency 00:00:00 00:00:00 [facility] Smoking Status Start Date Stop Date Source Former smoker 2019-12-17 00:00:00 2019-12-17 00:00:00 [facility] Medications Ordered Filled Start Stop Current Ordering Indication Dosage Frequency Signature Comments Components Source Medication Medication Date Date Medication? Clinician (SIG) Name Name lovastatin Yes 10mg QD Take [address] (MEVACOR) 8-15 by mouth [facility] - 10 MG 17:30: nightly. Medical tablet 21 Center calcium Yes 3{tbl} Q.[id number] Take [address] carbonate 8-15 [id number] tablets by [facility] - (TUMS) 500 17:30: 3D mouth 3 Medi benjy mg chewable 21 (three) Cente r tablet times daily. furosemide Yes 20mg QD Take [address] (LASIX) 20 8-15 by mouth [facility] - MG tablet 17:30: daily. Medica l [address] [place] [address] cyclobenzap Yes 1{tbl} QD Take [address] rine 8-04 tablet by [facility] - (FLEXERIL) 00:00: mouth Medica l 10 MG 00 daily. Center tablet ergocalcife Yes 1{capsu Q7D Take [address] rol 7-19 le} capsule by [facility] - (ERGOCALCIF 00:00: mouth once Medical JAYESH) 1,250 00 a week. Cente r mcg (50,000 unit) capsule AURYXIA 210 Yes TAKE BY [facility] mg iron Tab 6-01 MOUTH 2 [facility] - 00:00: TABLETS Medical 00 WITH MEALS Center 3 TIMES A DAY atorvastati Yes 1{tbl} QD Take [address] n (LIPITOR) 5-15 tablet by Sheng es - 10 MG 00:00: mouth Medical tablet 00 daily. [place] amLODIPine Yes 10mg QD Take [address] (NORVASC) 1-16 by mouth [facility] - 10 MG 00:00: daily . Medical tablet 00 [place] sevelamer Yes 800mg [id number] [address] [facility] (RENVELA) 1-10 [id number] (three) L ukes - 800 mg 00:00: 3D times Medical tablet 00 daily . [place] UNITHROID Yes 125ug QD Take [address] 125 mcg 1-10 mcg by [facility] - tablet 00:00: mouth Medical 00 nightly . [place] indomethaci 2020- No as needed. [facility] n (INDOCIN) 1-07 03-12 [facility] - 50 MG 00:00: 00:00 Medical capsule 00 :00 [place] amLODIPine Yes 10mg QD Take 10 mg [place] (NORVASC) 9-05 by mouth Method i 10 mg 15:20: daily. st tablet 50 levothyroxi Yes 150ug QD Take 150 [place] ne 9-05 mcg by Methodi (SYNTHROID, 15:20: mouth st LEVOXYL) 50 daily. 150 mcg tablet lovastatin Yes 20mg QD Take 20 mg [place] (MEVACOR) 9-05 by mouth Method i 10 MG 15:20: nightly. st tablet 50 Vital Signs Vital Name Observation Time Observation Value Comments Source Systolic blood 2019-12-16 13:25:00 142 mm[Hg] [facility] Diastolic blood 2019-12-16 13:25:00 80 mm[Hg] [facility] Heart rate 2019-12-16 13:25:00 76 /min [facility] Body temperature 2019-12-16 13:25:00 36.56 Maureen [facility] Respiratory rate 2019-12-16 13:25:00 16 /min [facility] Oxygen saturation in 2019-12-16 13:25:00 96 /min [facility] Arterial blood by Medical Ce nter Pulse oximetry Body weight 2019-12-16 12:00:00 76.4 kg [facility] BMI 2019-12-16 12:00:00 28.91 kg/m2 [facility] Body height 2019-12-14 08:59:00 162.6 cm [facility] Procedures Procedure Date / Time Performing Clinician Source Performed VASCULAR DIAGRAM -SCAN 2019-12-21 12:53:32 Provider, [facility] VASCULAR DIAGRAM -SCAN 2019-12-21 12:53:28 Provider, [facility] REPORT OF PROCEDURE - 2019-12-19 14:40:39 Provider, [facility] ENDOSCOPY [facility] RHYTHM STRIP - SCAN 2019-12-19 14:40:36 Provider, [facility] VASCULAR DIAGRAM -SCAN 2019-12-19 14:40:32 Provider, [facility] CARDIAC CATH REPORT - SCAN 2019-12-19 14:40:30 Provider, [facility] HEMODIALYSIS INPATIENT 2019-12-16 10:30:00 Patience Nielson [facility] (MANUAL DIFFERENTIAL) 2019-12-16 09:20:00 Sammy Blanco [facility] HEPATITIS B SURFACE 2019-12-16 08:36:00 Patience Nielson [facility] CBC W/PLT+MANUAL DIFF 2019-12-16 04:16:00 Molly Leon [facility] BASIC METABOLIC PANEL (7) 2019-12-16 04:16:00 [facility] 2019-12-16 04:16:00 Edward, [facility] CBC WITH PLATELET COUNT + 2019-12-16 04:16:00 [facility] (CELLAVISION MANUAL DIFF) 2019-12-16 04:16:00 [facility] BASIC METABOLIC PANEL (7) 2019-12-15 02:32:00 [facility] 2019-12-15 02:32:00 Edward, [facility] CBC W/PLT COUNT & AUTO 2019-12-15 02:32:00 Edward, [facility] DIFFERENTIAL [facility] ARTERIAL DOPPLER LEG, 2019-12-15 02:25:00 Edward, Molly [facility] RIGHT [facility] R & L CATH / CORONARY 2019-12-14 13:07:00 Sammy Blanco [facility] - ANGIOS / PCI [facility] ABD AO & LOWER EXT ANGIOS/ 2019-12-14 13:07:00 Sammy Blanco [facility] CBC (HEMOGRAM ONLY) 2019-12-14 09:24:00 [facility] BASIC METABOLIC PANEL (7) 2019-12-14 09:24:00 Edward, Molly [facility] PROTHROMBIN TIME/INR 2019-12-14 09:24:00 Edward, [facility] SARS-COV2/RT-PCR ([facility] & 2019-12-14 08:40:00 Sammy Blanco [facility] - REF LABS) Medical [place] ECG 12-LEAD 2019-12-14 08:07:50 Unknown, Hl7 Doctor [facility] URINE CULTURE 2019-11-14 12:16:00 [facility] US RETROPERITONEAL 2019-08-03 00:00:00 Provider, Historical [facility] TRANSFUSION SERVICE REPORT 2019-07-14 18:06:02 Provider, Default [facility] - - SCAN Scanning [facility] ECHOCARDIOGRAM REPORT - 2019-07-13 21:13:42 Provider, Default [facility] I [facility] - SCAN Scanning [facility] PERIPHERAL VASCULAR REPORT 2019-07-13 21:11:32 Provider, Default [facility] - - SCAN Scanning Medical [place] TREADMILL 2019-07-13 08:53:54 Unknown, Hl7 Doctor [facility] - TOLERANCE(NON-NUCLEAR Medical Ce nter TREADMILL) STRESS ECHO 2019-07-13 08:51:51 Naga, [facility] 2D ECHO W/ DOPPLER 2019-07-13 08:02:00 Naga, [facility] (CW/PW/COLOR) [facility] ECG 12-LEAD 2019-07-13 07:43:32 Naga, [facility] LIPID PANEL 2019-07-13 07:24:00 Naga, [facility] HEMOGLOBIN A1C 2019-07-13 07:24:00 Naga, [facility] PSA 2019-07-13 07:24:00 Naga, [facility] TYPE AND SCREEN, AUTOMATED 2019-07-13 07:24:00 Naga, [facility] TRANSFUSION SERVICE REPORT 2019-05-24 20:56:28 Provider, Default [facility] - - SCAN [facility] US ABDOMEN COMPLETE 2019-05-23 12:02:00 Naga, [facility] XR CHEST 2 VIEWS 2019-05-23 11:16:00 Naga, [facility] CYTOMEGALOVIRUS ANTIBODY, 2019-05-23 10:39:00 Naga, amidipat i [facility] IGG [facility] CYTOMEGALOVIRUS ANTIBODY, 2019-05-23 10:39:00 Naga, Bhamidipat i [facility] - IGM [facility] COMPREHENSIVE METABOLIC 2019-05-23 10:39:00 Naga, Bhamidipati [facility] - PANEL [facility] EBV ANTIBODY, IGM 2019-05-23 10:39:00 [facility] GAMMA GLUTAMYL TRANSFERASE 2019-05-23 10:39:00 Naga, Bhamidipa ti [facility] - (GGT) [facility] HEPATITIS B SURFACE 2019-05-23 10:39:00 Naga, Bhamidipati [facility] - ANTIBODY [facility] HEPATITIS B SURFACE 2019-05-23 10:39:00 Naga, amidipati [facility] - ANTIGEN [facility] HEPATITIS B CORE ANTIBODY, 2019-05-23 10:39:00 Naga, amidipa ti [facility] - IGM [facility] HEPATITIS C ANTIBODY 2019-05-23 10:39:00 Naga, [facility] HIV-1 ANTIGEN WITH HIV-1/2 2019-05-23 10:39:00 Naga, amidipa ti [facility] ANTIBODY [facility] LACTATE DEHYDROGENASE 2019-05-23 10:39:00 Naga, amidipati [facility] I [facility] - (LDH) [facility] PHOSPHORUS 2019-05-23 10:39:00 [facility] 2019-05-23 10:39:00 [facility] PT[facility] 2019-05-23 10:39:00 [facility] PROTHROMBIN TIME/INR 2019-05-23 10:39:00 Naga, [facility] RPR 2019-05-23 10:39:00 Naga, [facility] T SPOT TB 2019-05-23 10:39:00 Naga, [facility] URIC ACID 2019-05-23 10:39:00 Naga, Bhamidipati [facility] VARICELLA ZOSTER ANTIBODY, 2019-05-23 10:39:00 Naga, Bhamidipa ti [facility] - IGG [facility] FLOW PRA CLASS I WITH 2019-05-23 10:39:00 Naga, Bhamidipati [facility] - REFLEX TO ANTIBODY [facility] r SPECIFICITY FLOW PRA CLASS II WITH 2019-05-23 10:39:00 Naga, Bhamidipati [facility] - REFLEX TO ANTIBODY [facility] r SPECIFICITY HLA TYPING CI 2019-05-23 10:39:00 Naga, Bhamidipati [facility] HLA TYPING CII 2019-05-23 10:39:00 Naga, Bhamidipati [facility] BLOOD TYPING, AUTOMATED 2019-05-23 10:39:00 Naga, amidipati [facility] DIRECT AHG (ILDEFONSO)/DIRECT 2019-05-23 10:39:00 Naga, Bhamidipati [facility] DARELL [facility] CBC W/PLT COUNT & AUTO 2019-05-23 10:39:00 Naga, Bhamidipati C [facility] DIFFERENTIAL [facility] URINE CULTURE 2019-05-23 10:34:00 Naga, amidipati [facility] URINALYSIS W/ MICROSCOPIC 2019-05-23 10:34:00 Naga, Bhamidipat i [facility] Plan of Care Planned Activity Planned Date Details Comments Source Future Scheduled 2022-07-[address] [facility] - Test 00:00:00 (procedure) [code = Medical Center 75822641] Future Scheduled 2020-01-[address] [facility] - Test 00:00:00 measurement [facility] (procedure) [code = 10963855] Future Scheduled 2020-01-02 INFLUENZA VACCINE (#1) [facility] Test 00:00:00 [code = INFLUENZA Medical Ce nter VACCINE (#1)] Future Scheduled 2019-12-02 INFLUENZA VACCINE [place] [facility] 00:00:00 [code = INFLUENZA VACCINE] Future Scheduled 2019-11-[address] [facility] - Test 00:00:00 WELLNESS (YEAR 2 or Medical Center FIRST YEAR if no IPPE) [code = MEDICARE ANNUAL WELLNESS (YEAR 2 or FIRST YEAR if no IPPE)] Future Scheduled 2019-03-[address] [facility] - Test 00:00:00 0-64 YRS (2 of 3 - Medical C enter PCV13) [code = PNEUMOCOCCAL VACCINE 0-64 YRS (2 of 3 - PCV13)] Future Scheduled 2015 COLONOSCOPY SCREENING [place] [facility] 00:00:00 [code = COLONOSCOPY SCREENING] Future Scheduled 2015 SHINGLES VACCINES (#1) [place] [facility] 00:00:00 [code = SHINGLES VACCINES (#1)] Future Scheduled 1981 COVID-19 VACCINE (#1) [place] [facility] 00:00:00 [code = COVID-19 VACCINE (#1)] Future Scheduled [address] DIABETIC EYE EXAM [facility] - Test 00:00:00 [code = DIABETIC EYE Medical Center EXAM] Future Scheduled [address] [facility] - Test 00:00:00 examination Medical Center (regime/therapy) [code = 663687744] Future Scheduled 1975 Urine screening [facility] - Test 00:00:00 protein (procedure) Medical Center [code = 244104270] Future Scheduled [address] [facility] - Test 00:00:00 malignant neoplasm of Medica l Center colon (procedure) [code = 100778382] Encounters Start End Encounter Admission Attending Care Care Encounter Source Date/Time Date/Time Type Type Clinicians Facility Department ID 2019-06-19 2019-06-19 Orders Doctor DECKER [id number] 00:00:00 00:00:00 Only UnassignedRONNY [id number] [place] [facility] [id number] 2019-01-16 2019-01-16 Telephone KAREN Guerrero [id number] 00:00:00 00:00:00 Robyn ADEN [id number] [place] C[facility] [id number] [place] [id number] 2019-01-13 2019-01-13 Transition Tabatha Goncalves [id number] 00:00:00 00:00:00 of Care Yuki Kee [id number] [place] [id number] Results Test Description Test Time Test Comments Results Result Comments Source Manual Differential 2019-12-16 12:27:00 Test Item Value Reference Range Interpretation Comme nts % Neutros (manual) (test code = 1359) 82 % % Lymphs (manual) (test code = 1360) 8 % % Monos (manual) (test code = 1361) 8 % % Eos (manual) (test code = 1362) 1 % % Baso (manual) (test code = 1363) 1 % Total Counted (test code = 1351) 100 WBC Morphology (test code = 487) Normal Platelet Morphology (test code = 486) Normal RBC Morphology (test code = 762) Normal [facility](MANUAL DIFFERENTIAL)2019-12-16 12:27:00 Test Item Value Reference Range Interpretation Comments NEUTROPHILS - REL (DIFF) (BEAKER) 82 % (test code = 1359) LYMPHOCYTES - REL (DIFF) (BEAKER) 8 % (test code = 1360) MONOCYTES - REL (DIFF) (BEAKER) (test 8 % code = 1361) EOSINOPHILS - REL (DIFF) (BEAKER) 1 % (test code = 1362) BASOPHILS - REL (DIFF) (BEAKER) (test 1 % code = 1363) TOTAL COUNTED (BEAKER) (test code = 100 1351) WBC MORPHOLOGY (BEAKER) (test code = Normal 487) PLT MORPHOLOGY (BEAKER) (test code = Normal 486) RBC MORPHOLOGY (BEAKER) (test code = Normal 762) HEMODIALYSIS [id number] 10:30:00Celestine Luu III, MD 12/16/2019 7[facility]/16/2019I have personallyseen and examined Alejandro Dunbar on hemodialysisIndication :ESRDPrescription: F160, 3-4 hrs, 2.0K, 2.5 Ca, UF2-3 L as tolReason for exam: BP fluctuation & adjust dry weightTolerating dialysis ok Celestine Luu III, MD12/16/2019[facility] surface [id number] 09:48:00 Test Item Value Reference Range Interpretation Comments HBsAg Screen (test code Nonreactive Nonreactive = 5195-3) LOVE (test code = LOVE) Specimen is considered negative for HBsAg. Lab Interpretation (test Normal code = 84715-7) [facility] SURFACE [id number] 09:48:00 Test Item Value Reference Range Interpretation Comments HEPATITIS B SURFACE ANTIGEN (2) Nonreactive Nonreactive (BEAKER) (test code = 2585) Specimen is considered negative for HBsAg.Manual [id number] 08:57:00 Test Item Value Reference Range Interpretation Comments % Neutros (test code = 2816) 71 % % Lymphs (test code = 2817) 17 % % Monos (test code = 2818) 7 % % Eos (test code = 2819) 2 % % Bands (test code = 2826) 3 % 0-10 # Neutros (test code = 2830) 6.39 K/ul 1.78-5.38 H # Lymphs (test code = 2831) 1.53 K/ul 1.32-3.57 # Monos (test code = 2832) 0.63 K/uL 0.3-0.82 # Eos (test code = 2834) 0.18 K/uL 0.04-0.54 # Bands (test code = 2840) 0.27 K/uL 0-0.8 Total Counted (test code = 1351) 100 WBC Morphology (test code = 487) Normal Platelet Morphology (test code = Normal 486) Anisocytosis (test code = 961) 1+ few Macrocytes (test code = 964) 1+ few Poikilocytes (test code = 966) 1+ few Lab Interpretation (test code = Abnormal 80729-6) [facility](CELLAVISION MANUAL DIFF)2019-12-16 08:57:00 Test Item Value Reference Range Interpretation Comments NEUTROPHILS - REL 71 % (CELLAVISION)(BEAKER) (test code = 2816) LYMPHOCYTES - REL 17 % (CELLAVISION)(BEAKER) (test code = 2817) MONOCYTES - REL 7 % (CELLAVISION)(BEAKER) (test code = 2818) EOSINOPHILS - REL 2 % (CELLAVISION)(BEAKER) (test code = 2819) BANDS - REL (CELLAVISION)(BEAKER) 3 % 0-10 (test code = 2826) NEUTROPHILS - ABS 6.39 K/ul 1.78-5.38 H (CELLAVISION)(BEAKER) (test code = 2830) LYMPHOCYTES - ABS 1.53 K/ul 1.32-3.57 (CELLAVISION)(BEAKER) (test code = 2831) MONOCYTES - ABS 0.63 K/uL 0.30-0.82 (CELLAVISION)(BEAKER) (test code = 2832) EOSINOPHILS - ABS 0.18 K/uL 0.04-0.54 (CELLAVISION)(BEAKER) (test code = 2834) BANDS - ABS (CELLAVISION)(BEAKER) 0.27 K/uL 0.00-0.80 (test code = 2840) TOTAL COUNTED (BEAKER) (test code = 100 1351) WBC MORPHOLOGY (BEAKER) (test code Normal = 487) PLT MORPHOLOGY (BEAKER) (test code Normal = 486) ANISOCYTOSIS (BEAKER) (test code = 1+ few 961) MACROCYTES (BEAKER) (test code = 1+ few 964) POIKILOCYTES (BEAKER) (test code = 1+ few 966) [id number] 05:55:00 Test Item Value Reference Range Interpretation Comments Phosphorus (test code = 9.2 mg/dL 2.3-4.7 HH 2777-1) LOVE (test code = LOVE) [employer] ID - RA M Lab Interpretation (test Abnormal code = 84324-5) [facility]2020-[facility]15 05:55:00 Test Item Value Reference Range Interpretation Comments PHOSPHORUS (BEAKER) (test code = 9.2 mg/dL 2.3-4.7 HH 604) [employer] ALEXANDER KNAPP MBasic Metabolic [id number] 05:04:00 Test Item Value Reference Range Interpretation Comments Sodium (test code = 135 meq/L 136-145 L 2951-2) Potassium (test code = 4.6 meq/L 3.5-5.1 2823-3) Chloride (test code = 98 meq/L 98-107 2075-0) CO2 (test code = 18 meq/L 22-29 L 2028-9) BUN (test code = 71 mg/dL 7-21 H 3094-0) Creatinine (test code 12.77 mg/dL 0.57-1.25 H = 2160-0) Glucose (test code = 113 mg/dL 70-105 H 2345-7) Calcium (test code = 9.4 mg/dL 8.4-10.2 91801-8) EGFR (test code = 4 mL/min/1.73 [place] [address]-0) NOT ACCURATE CREATININE CLEARANCE IN PREDICTING GLOMERULAR FILTRATION RATE . ESTIMATED GFR I S NOT APPLICABLE FOR DIALYSIS PATIENTS. LOVE (test code = LOVE) [employer] ID - RA M Lab Interpretation Abnormal (test code = 28087-1) [facility] METABOLIC [id number] 05:04:00 Test Item Value Reference Range Interpretation Comments SODIUM (BEAKER) 135 meq/L 136-145 L (test code = 381) POTASSIUM (BEAKER) 4.6 meq/L 3.5-5.1 (test code = 379) CHLORIDE (BEAKER) 98 meq/L 98-107 (test code = 382) CO2 (BEAKER) (test 18 meq/L 22-29 L code = 355) BLOOD UREA NITROGEN 71 mg/dL 7-21 H (BEAKER) (test code = 354) CREATININE (BEAKER) 12.77 mg/dL 0.57-1.25 H (test code = 358) GLUCOSE RANDOM 113 mg/dL 70-105 H (BEAKER) (test code = 652) CALCIUM (BEAKER) 9.4 mg/dL 8.4-10.2 (test code = 697) EGFR (BEAKER) (test 4 mL/min/1.73 ESTIMAT ED GFR IS code = 1092) sq m NOT ACCURATE CREATININE CLEARANCE IN PREDICTING GLOMERULAR FILTRATION RATE . ESTIMATED GFR I S NOT APPLICABLE FOR DIALYSIS PATIEN TS. [employer] ID - RA MCBC with platelet count + manual [id number] 04:42:00 Test Item Value Reference Range Interpretation Comments WBC (test code = 6690-2) 9.0 3.5- 10.5 K/L RBC (test code = 789-8) 3.37 4.63- 6.08 M/L L MCHC (test code = 786-4) 33.4 32.3- 36.5 GM/DL L Hematocrit (test code = 4544-3) 31.7 % 40.1-51 L MCV (test code = 787-2) 94.1 fL 79-92.2 H MCH (test code = 785-6) 31.5 pg 25.7-32.2 RDW (test code = 788-0) 13.9 % 11.6-14.4 Platelets (test code = 777-3) 213 150- 450 K/CU MM MPV (test code = 05424-6) 10.0 fL 9.4-12.4 nRBC (test code = 413) 0 0- 0 /100 WBC Lab Interpretation (test code = Abnormal 57269-3) [facility] WITH PLATELET COUNT + MANUAL [id number] 04:42:00 Test Item Value Reference Range Interpretation Comments WHITE BLOOD CELL COUNT (BEAKER) 9.0 K/ L 3.5-10.5 (test code = 775) RED BLOOD CELL COUNT (BEAKER) 3.37 M/ L 4.63-6.08 L (test code = 761) HEMOGLOBIN (BEAKER) (test code = 10.6 GM/DL 13.7-17.5 L 410) HEMATOCRIT (BEAKER) (test code = 31.7 % 40.1-51.0 L 411) MEAN CORPUSCULAR VOLUME (BEAKER) 94.1 fL 79.0-92.2 H (test code = 753) MEAN CORPUSCULAR HEMOGLOBIN 31.5 pg 25.7-32.2 (BEAKER) (test code = 751) MEAN CORPUSCULAR HEMOGLOBIN CONC 33.4 GM/DL 32.3-36.5 (BEAKER) (test code = 752) RED CELL DISTRIBUTION WIDTH 13.9 % 11.6-14.4 (BEAKER) (test code = 412) PLATELET COUNT (BEAKER) (test 213 K/CU MM 150-450 code = 756) MEAN PLATELET VOLUME (BEAKER) 10.0 fL 9.4-12.4 (test code = 754) NUCLEATED RED BLOOD CELLS 0 /100 WBC 0-0 (BEAKER) (test code = 413) Arterial Doppler Leg, [id number] 08:16:33Ejection FractionSLE ECHO HEARTLAB MKCKESSON CPACSRight Impression1. There is no pseudoaneurysm visu alized.2. There is a non-vascularized structure measuring 1.82 x 3.46 cm;suggestive of a hematoma.3.There is no venous obstruction or arteriovenous fistula visualized.4. The common femoral artery flowis biphasic with a velocity of 133 cm/sec.(within normal range). Conclusions Summary Duplex imaging of the right groin area was performed. The vessels were adequately visualized. There was no evidence of a pseudoaneurysm, venous obstruction or arteriovenous fistula in the right groin area. There was a non-vascularized structure measuring 1.82 x 3.46 cm; suggestive of a hematoma. Signature ------- Velocities are measured in cm/s ; Diameters are measured in cm Interface, External Ris In - 12/15/2019 8:16 AM CDTPV LAB - Pseudoaneurysm Survey Demographics Patient Name VIKA DUNBAR, Date of Study 12/15/2019 ALEJANDRO WALDEN Age 54 Visit Number [id number] Gender Male Accession Number [id number] Date of 1965 Referring Elise [facility]on [facility] Number [id number] Physician [employer] Kylah Escoto T Interpreting Physician KARO Mann ProcedureType of Study: Pseudoaneurysm: PSEUDOANEURYSM, GROIN DOPPLER RIGHT. Indications for Study:Rule out pseudoaneurysm.Patient Status:Routine.Study Location:Portable.Technical Quality:Adequate visualization. - Results were reported to:SANJAY Lacy @ 2:25 am.Risk FactorsHistory of Disease+ +----+ +!Diagnosis !Date!Comments !+ +----+ +!Hi story/Risk Factors:! !Former smoker, hypertension, Diabetes, ESRD !+ +----+ +ImpressionsRight Impression1. There is no pseudoaneurysm visualized.2. There is a non-vascularized structure measuring 1.82 x 3.46 cm;suggestive of a hematoma.3. There isno venous obstruction or arteriovenous fistula visualized.4. The common femoral artery flow is biphasic with a velocity of 133 cm/sec.(within normal range). Conclusions Summary Duplex imaging of the right groin area was performed. The vessels were adequately visualized. There was no evidence of a pseudoaneurysm, venous obstruction or arteriovenous fistula in the right groin area. There was a non-vascularized structure measuring 1.82 x 3.46 cm; suggestive of a hematoma. Signature Velocities are measured in cm/s ; Diameters are measured in [facility] BASIC METABOLIC [id number] 03:00:00 Test Item Value Reference Range Interpretation Comments SODIUM (BEAKER) 132 meq/L 136-145 L (test code = 381) POTASSIUM (BEAKER) 4.6 meq/L 3.5-5.1 (test code = 379) CHLORIDE (BEAKER) 97 meq/L 98-107 L (test code = 382) CO2 (BEAKER) (test 21 meq/L 22-29 L code = 355) BLOOD UREA NITROGEN 56 mg/dL 7-21 H (BEAKER) (test code = 354) CREATININE (BEAKER) 10.95 mg/dL 0.57-1.25 H (test code = 358) GLUCOSE RANDOM 108 mg/dL 70-105 H (BEAKER) (test code = 652) CALCIUM (BEAKER) 9.0 mg/dL 8.4-10.2 (test code = 697) EGFR (BEAKER) (test 5 mL/min/1.73 ESTIMAT ED GFR IS code = 1092) sq m NOT ACCURATE CREATININE CLEARANCE IN PREDICTING GLOMERULAR FILTRATION RATE . ESTIMATED GFR I S NOT APPLICABLE FOR DIALYSIS PATIEN TS. [employer]ater ID - RA [id number] 02:58:00 Test Item Value Reference Range Interpretation Comments PHOSPHORUS (BEAKER) (test code = 7.4 mg/dL 2.3-4.7 H 604) [employer] ID - RA MCBC with platelet count + automated [id number] 02:38:00 Test Item Value Reference Range Interpretation Comments WBC (test code = 6690-2) 9.0 3.5- 10.5 K/L RBC (test code = 789-8) 3.66 4.63- 6.08 M/L L MCHC (test code = 786-4) 32.8 32.3- 36.5 GM/DL L Hematocrit (test code = 4544-3) 35.1 % 40.1-51 L MCV (test code = 787-2) 95.9 fL 79-92.2 H MCH (test code = 785-6) 31.4 pg 25.7-32.2 RDW (test code = 788-0) 14.0 % 11.6-14.4 Platelets (test code = 777-3) 225 150- 450 K/CU MM MPV (test code = 33330-6) 9.9 fL 9.4-12.4 nRBC (test code = 413) 0 0- 0 /100 WBC % Neutros (test code = 429) 72 % % Lymphs (test code = 430) 19 % % Monos (test code = 431) 7 % % Eos (test code = 432) 2 % % Baso (test code = 437) 1 % # Neutros (test code = 670) 6.46 1.78- 5.38 K/L H # Lymphs (test code = 414) 1.67 1.32- 3.57 K/L # Monos (test code = 415) 0.60 0.30- 0.82 K/L # Eos (test code = 416) 0.14 0.04- 0.54 K/L # Baso (test code = 417) 0.11 0.01- 0.08 K/L H Immature Granulocytes-Relative 0 % 0-1 (test code = 2801) Lab Interpretation (test code = Abnormal 19835-6) [facility] W/PLT COUNT & AUTO [id number] 02:38:00 Test Item Value Reference Range Interpretation Comments WHITE BLOOD CELL COUNT (BEAKER) 9.0 K/ L 3.5-10.5 (test code = 775) RED BLOOD CELL COUNT (BEAKER) 3.66 M/ L 4.63-6.08 L (test code = 761) HEMOGLOBIN (BEAKER) (test code = 11.5 GM/DL 13.7-17.5 L 410) HEMATOCRIT (BEAKER) (test code = 35.1 % 40.1-51.0 L 411) MEAN CORPUSCULAR VOLUME (BEAKER) 95.9 fL 79.0-92.2 H (test code = 753) MEAN CORPUSCULAR HEMOGLOBIN 31.4 pg 25.7-32.2 (BEAKER) (test code = 751) MEAN CORPUSCULAR HEMOGLOBIN CONC 32.8 GM/DL 32.3-36.5 (BEAKER) (test code = 752) RED CELL DISTRIBUTION WIDTH 14.0 % 11.6-14.4 (BEAKER) (test code = 412) PLATELET COUNT (BEAKER) (test 225 K/CU MM 150-450 code = 756) MEAN PLATELET VOLUME (BEAKER) 9.9 fL 9.4-12.4 (test code = 754) NUCLEATED RED BLOOD CELLS 0 /100 WBC 0-0 (BEAKER) (test code = 413) NEUTROPHILS RELATIVE PERCENT 72 % (BEAKER) (test code = 429) LYMPHOCYTES RELATIVE PERCENT 19 % (BEAKER) (test code = 430) MONOCYTES RELATIVE PERCENT 7 % (BEAKER) (test code = 431) EOSINOPHILS RELATIVE PERCENT 2 % (BEAKER) (test code = 432) BASOPHILS RELATIVE PERCENT 1 % (BEAKER) (test code = 437) NEUTROPHILS ABSOLUTE COUNT 6.46 K/ L 1.78-5.38 H (BEAKER) (test code = 670) LYMPHOCYTES ABSOLUTE COUNT 1.67 K/ L 1.32-3.57 (BEAKER) (test code = 414) MONOCYTES ABSOLUTE COUNT (BEAKER) 0.60 K/ L 0.30-0.82 (test code = 415) EOSINOPHILS ABSOLUTE COUNT 0.14 K/ L 0.04-0.54 (BEAKER) (test code = 416) BASOPHILS ABSOLUTE COUNT (BEAKER) 0.11 K/ L 0.01-0.08 H (test code = 417) IMMATURE GRANULOCYTES-RELATIVE 0 % 0-1 PERCENT (BEAKER) (test code = 2801) ECG 12 [id number] 14:18:34Interface, External Ris In - 12/14/2019 2:18 PM CDTVentricular Rate 73 BPMAtrial Rate 73 BPMP-R Interval 184 msQRS Duration 100 msQ-T Interval 400 msQTC Calculation(Bazett) 440 msP Elmer 59 degreesR Elmer 75 degreesT Elmer 122 degreesNormal sinus rhythmNonspecific T wave abnormalityAbnormal ECGWhen compared with ECG of 13-JUL-2019 07:43,No significant change was foundConfirmed by MD Harding Roberto ([id number]) on 12/14/2019 2:18:32 [facility] Ref [facility]2019-12-14 11:10:00 Test Item Value Reference Range Interpretation Comments SARS-COV2/RT-PCR Negative Not Detected, (test code = Negative, See 87416-1) external report for linked test SARS-COV-2 [facility]FORM[facility] (test code = 50493-2) LOVE (test code = Negative results do not LOVE) preclude SARS-CoV-2 infection and should not be used as [...] of the Act. Fact Sheet for Healthcare Providers:https://www.Scanid.Scholastica/Documents/Xper t%20Xpress%20SARS%20CoV- 2/Fact%20Sheets/848-4392 %35BNEV-VNC-1%20HEALTHCA RE%20PROVIDERS%20FACT%20 SHEET.pdf Fact Sheet for Healthcare Patients:https://www.[employer]id.Scholastica/Documents/Xpert %20Xpress%20SARS%20CoV-2 /Fact%20Sheets/154-3521% 78TPIG-MFO-4%20PATIENT%2 0FACT%20SHEET.pdf Performing Laboratory:[place] [address] [facility] [place] [address] [facility])2019-12-14 11:10:00 Test Item Value Reference Range Interpretation Comments SARS-COV2/RT-PCR (test code Negative Not Detected, Negative, = 1619610) See external report for linked test SARS-COV-[address] [facility] (test code = 9429528) Negative results do not preclude SARS-CoV-2 infection and should not be used as the sole basis for patient management decisions. Negative results must be combined with clinical observations, patient history, and epidemiological information. A false negative result may occur if a specimen is improperly collected, transported or handled.The limit of detection for this assay is 250 copies/mL.This SARS CoV-2 test is a rapid, real-time RT-PCR test intended for the qualitative detection of nucleic acid from SARS-CoV-2 in a nasopharyngeal swab specimen collected from individuals suspected of COVID-19 by their healthcare provider.This test has not been Food and Drug [...] is revoked under Section 564(g) of the Act.Fact Sheet for Healthcare Pro viders:https://www.MineralTree.Scholastica/Documents/Xpert%20Xpress%20SARS%20CoV-2/Fact%20Sh eets/172-3802%69VPOO-RUN-7%20HEALTHCARE%20PROVIDERS%20FACT%20SHEET.pdfFact Sheet for Healthcare Patients:https://www.G[employer]Sky.Scholastica/Documents/Xpert%20Xpress%20SARS%20CoV-2/Fact%20Sheets/3023801%20SARS-COV -2%20PATIENT%20FACT%20SHEET.pdfPerforming Laboratory:[facility], [place] [address]NHVJT METABOLIC [id number] 09:53:00 Test Item Value Reference Range Interpretation Comments SODIUM (BEAKER) 136 meq/L 136-145 (test code = 381) POTASSIUM (BEAKER) 4.2 meq/L 3.5-5.1 (test code = 379) CHLORIDE (BEAKER) 96 meq/L 98-107 L (test code = 382) CO2 (BEAKER) (test 25 meq/L 22-29 code = 355) BLOOD UREA NITROGEN 44 mg/dL 7-21 H (BEAKER) (test code = 354) CREATININE (BEAKER) 10.25 mg/dL 0.57-1.25 H (test code = 358) GLUCOSE RANDOM 177 mg/dL 70-105 H (BEAKER) (test code = 652) CALCIUM (BEAKER) 10.5 mg/dL 8.4-10.2 H (test code = 697) EGFR (BEAKER) (test 5 mL/min/1.73 ESTIMAT ED GFR IS code = 1092) sq m NOT ACCURATE CREATININE CLEARANCE IN PREDICTING GLOMERULAR FILTRATION RATE . ESTIMATED GFR I S NOT APPLICABLE FOR DIALYSIS PATIEN TS. [employer] ID - ROSIANGProthrombin time/[id number] 09:39:00 Test Item Value Reference Range Interpretation Comments Protime (test code = 15.0 11.9- 14.2 H 5902-2) seconds INR (test code = 1.21 <=5.90 6301-6) LOVE (test code = LOVE) Effective 09/28/2018: PT Reference Range ChangeNew: 11.9-14.2 Previous: 11.7-14.7 RECOMMENDED COUMADIN/WARFARIN INR THERAPY RANGESSTANDARD DOSE: 2.0-3.0 Includes: PROPHYLAXIS for venous thrombosis, systemic embolization; TREATMENT for venous thrombosis and/or pulmonary embolus.HIGH RISK: Target INR is 2.5-3.5 for patients wiht mechanical heart valves. Lab Interpretation Abnormal (test code = 27953-2) [facility] Francisco[facility]HROM[facility]/[id number] 09:39:00 Test Item Value Reference Range Interpretation Comments PROTIME (BEAKER) (test code = 15.0 seconds 11.9-14.2 H 759) INR (BEAKER) (test code = 370) 1.21 <=5.90 Effective 09/28/2018: PT Reference Range ChangeNew: 11.9-14.2 Previous: 11.7- 14.7RECOMMENDED COUMADIN/WARFARIN INR THERAPY RANGESSTANDARD DOSE: 2.0-3.0 Includes: PROPHYLAXIS for venous thrombosis, systemic embolization; TREATMENT for venous thrombosis and/or pulmonary embolus.HIGH RISK: Target INR is2.5-3.5 for patients wiht mechanical heart valves.CBC (Hemogram only)2019-12-14 09:38:00 Test Item Value Reference Range Interpretation Comments WBC (test code = 6690-2) 6.8 3.5- 10.5 K/L RBC (test code = 789-8) 4.26 4.63- 6.08 M/L L MCHC (test code = 786-4) 33.3 32.3- 36.5 GM/DL L Hematocrit (test code = 4544-3) 40.3 % 40.1-51 MCV (test code = 787-2) 94.6 fL 79-92.2 H MCH (test code = 785-6) 31.5 pg 25.7-32.2 RDW (test code = 788-0) 14.1 % 11.6-14.4 Platelets (test code = 777-3) 243 150- 450 K/CU MM MPV (test code = 13026-6) 9.3 fL 9.4-12.4 L nRBC (test code = 413) 0 0- 0 /100 WBC Lab Interpretation (test code = Abnormal 65207-8) [facility]2019-12-14 09:38:00 Test Item Value Reference Range Interpretation Comments WHITE BLOOD CELL COUNT (BEAKER) 6.8 K/ L 3.5-10.5 (test code = 775) RED BLOOD CELL COUNT (BEAKER) 4.26 M/ L 4.63-6.08 L (test code = 761) HEMOGLOBIN (BEAKER) (test code = 13.4 GM/DL 13.7-17.5 L 410) HEMATOCRIT (BEAKER) (test code = 40.3 % 40.1-51.0 411) MEAN CORPUSCULAR VOLUME (BEAKER) 94.6 fL 79.0-92.2 H (test code = 753) MEAN CORPUSCULAR HEMOGLOBIN 31.5 pg 25.7-32.2 (BEAKER) (test code = 751) MEAN CORPUSCULAR HEMOGLOBIN CONC 33.3 GM/DL 32.3-36.5 (BEAKER) (test code = 752) RED CELL DISTRIBUTION WIDTH 14.1 % 11.6-14.4 (BEAKER) (test code = 412) PLATELET COUNT (BEAKER) (test 243 K/CU MM 150-450 code = 756) MEAN PLATELET VOLUME (BEAKER) 9.3 fL 9.4-12.4 L (test code = 754) NUCLEATED RED BLOOD CELLS 0 /100 WBC 0-0 (BEAKER) (test code = 413) URINE [id number] 11:01:00 Test Item Value Reference Range Interpretation Comments CULTURE (BEAKER) ENTEROCOCCUS A 40-49,000 c ol/mL (test code = 1095) FAECALIS Enterococ cus faecalis Ampicillin (test S code = 26) Linezolid (test code S = 40) Nitrofurantoin (test S code = 23) Tetracycline (test R code = 2) Vancomycin (test S code = 13) <10,000 col/mL skin floraTreadmill tolerance(Non-Nuclear Treadmill)2019-07-24 13:38:39Interface, External Ris In - 07/24/2019 1:38 PM CDTProtocol Name DOBUT TM-1 Time In Exercise Phase 00:15:04 Max. Systolic BP 150 mmHgMax Diastolic BP 69 mmHgMax Heart Rate 142 BPMMax Predicted Heart Rate 166 BPMReason For Termination Target Heart Rate Achieved Reason for Test ESRD Target HR Formula (2 20 - Age)*100% Arrhythmias none Resting ECG Normal sinus rhythm ST Changes No Significant Changes Overall Impression Normal stress ECG Chest Pain none HR Response To Exercise Appropriate Response for Pharmacological Stress T BP Response To Exercise Appropriate Response for Pharmacological Stress T Func tional Capacity Indeterminate due to Pharmacologic Stress Test Unithroid, Norvasc, Indomethacin,RENVELANo Complications.Confirmed by MD SOW RAYMOND ([id number]) on 07/24/2019 1:38:26 [facility]isc[facility] Echo With [id number] 11:07:12 Test Item Value Reference Range Interpretation Comments Ejection Fraction Est EF of >70% (test code = 2574) PXN (test code = Interface, External Ris In PXN) - 07/13/2019 11:07 AM CDTStress Echocardiography Report Demographics Patient Name VIKA DUNBAR, Date of Study 07/13/2019 ALEJANDRO WALDEN Gender Male Visit Number [id number] Race Room Number OP Number Date of 1965 Referring Naga Morin Physician Nora Age 54 year(s) [employer]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 Amount - 2 mlHeight: 64 inches Weight: 76.2 kg (168 lbs) BSA: 1.82 m^2 BMI: 28.84 kg/m^2HR: 61 bpm BP: 133/74 mmHg Stress Stress Type: Pharmacologic Predicted HR: 166 bpm Summary Indications: pre surgical evaluation for organ transplantation Procedure done: Dobutamine stress echocardiogram. Complications: None Medications: Atropine: 0.75mg. Dobutamine infusion [...] inducible ischemia. This is a negative Echocardiographic Stress Test. 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 Signature Findings Technical Quality: Technically fair exam. Rhythm/BP Regular sinus rhythm during the exam. [...] size is normal. Aortic Valve The aortic valveis not well visualized. Mitral Valve Normal MV structure based on available views. Mild mitral regurgitation. Tricuspid Valve TV structure appears normal basedon available views. Mild tricuspid regurgitation. Estimated peak systolic PA [...] Aortic Valve Peak Velocity: 1.3 m/s Mean [place] city: 0.89 m/s Peak Gradient: 6.81 mmHg Mean Gradient: 3.6 mmHg AV Area (continuity): 3.16 cm^2 AV VTI: 26.37 cm AV DVI: 0.84 LVOT Peak Velocity: 1.16 m/s Peak Gradient:5.35 mmHg Mean Velocity: 0.71 m/s Mean Gradient: 2.48 mmHg LVOT Diameter: 2.19 cm LVOT VTI: 22.13 cm LVOT Area: 3.77 cm^2 LVOT SV:83.32 ml LVOT CO: 5.42 l/min LVOT CI: 2.98 l/min/m^2[facility] 2019-07-13 09:52:00 Test Item Value Reference Range Interpretation Comments Hemoglobin A1C (test code 6.6 % 4.3-6.1 H = 4548-4) LOVE (test code = LOVE) [employer] Coater ID - [id number] Lab Interpretation (test Abnormal code = 49114-7) [facility] FranciscoHEMOGLOBIN [id number] 09:52:00 Test Item Value Reference Range Interpretation Comments HEMOGLOBIN A1C (BEAKER) (test code = 6.6 % 4.3-6.1 H 368) [employer] Coater ID - [id number] 09:08:00 Test Item Value Reference Range Interpretation Comments PSA (test code = 2857-1) 0.5 ng/mL 0-4 LOVE (test code = LOVE) [employer] Coater ID - PITER F Lab Interpretation (test Normal code = 29830-4) [facility] FranciscoPSA2020-03-12 09:08:00 Test Item Value Reference Range Interpretation Comments PROSTATE SPECIFIC ANTIGEN (BEAKER) 0.5 ng/mL 0.0-4.0 (test code = 844) [employer] Coater ID - PITER FType and Screen, [id number] 08:20:00 Test Item Value Reference Range Interpretation Comments ABO/RH AUTOMATED (BEAKER) (test O POSITIVE code = 2260) Ab Scrn (test code = 890-4) NEGATIVE [facility] FranciscoLipid [id number] 08:00:00 Test Item Value Reference Range Interpretation Comments Triglycerides (test 188 mg/dL code = 2571-8) Cholesterol (test code 263 mg/dL = 2093-3) HDL (test code = 51 mg/dL 2085-9) LDL Calculated (test 174 mg/dL code = 56019-3) LOVE (test code = LOVE) Triglyceride Reference Range: Low Risk <150 Borderline 150-199 High Risk 200-499 Very High Risk >=500 Cholesterol Reference Range: Low Risk <200 Borderline 200-239 High Risk >240 HDL Cholesterol Reference Range: Low Risk >=60 High Risk <40 LDL Cholesterol Reference Range: Optimal <100 Near Optimal 100-129 Borderline 130-159 High 160-189 Very High >=190 [employer] Coater ID - CHUCHO Jung BRITT [facility] HospitalLIPID [id number] 08:00:00 Test Item Value Reference Range Interpretation Comments TRIGLYCERIDES (BEAKER) (test code = 188 mg/dL 540) CHOLESTEROL (BEAKER) (test code = 263 mg/dL 631) HDL CHOLESTEROL (BEAKER) (test code 51 mg/dL = 976) LDL CHOLESTEROL CALCULATED (BEAKER) 174 mg/dL (test code = 633) Triglyceride Reference Range: Low Risk <150 Borderline 150-199 High Risk 200-499 Very High Risk >=500Cholesterol Reference Range: Low Risk <200 Borderline 200-239 High Risk >240HDL Cholesterol Reference Range: Low Risk >=60 High Risk <40LDL Cholesterol Reference Range: Optimal <100 Near Optimal 100-129 Borderline 130-159 High 160-189 Very High >=190 [employer] Coater ID - CHUCHO GRAYA TYPING [id number] 15:00:00 Test Item Value Reference Range Interpretation Comments HLA-DR AG1 (test 16 code = 3465) HLA-DR AG2 (test 1 code = 5282) HLA-DR AG5-1 51 (test code = 3242) HLA-DQA1 AG 1-1 5 (test code = 3463) HLA-DQA1 AG 1-2 1 (test code = 3464) HLA-DQB1 AG 1-1 7 (test code = 3244) HLA-DQB1 AG 1-2 5 (test code = 3245) HLA-DPA1 AG 1-1 1 (test code = 3246) HLA-DPA1 AG 1-2 1 (test code = 3247) HLA-DPB1 AG 1-1 04:01 (test code = 3248) HLA-DPB1 AG 1-2 04:01 (test code = 3249) LOVE (test code = Disclaimer: This test was LOVE) developed and its performance characteristics determined by the [facility]. It has not been cleared or approved by the U.S. Food and Drug Administration. The FDA has determined that such clearance or approval is not necessary. This test is used for clinical purposes. It should not be regarded as investigational or for research. This laboratory is certified under the Clinical Laboratory Improvement Amendments of 1988 (CLIA-88) as qualified to perform high complexity clinical laboratory testing. [facility] FranciscoHLA TYPING [id number] 14:58:00 Test Item Value Reference Range Interpretation Comments HLA-A AG1 (test 2 code = 3466) HLA-A AG2 (test 3 code = 3467) HLA-B AG1 (test 62 code = 3468) HLA-B AG2 (test 35 code = 3469) HLA-C AG1 (test 10 code = 3470) HLA-C AG2 (test 4 code = 3471) HLA-B BW1 (test 6 code = 3234) HLA-B BW2 (test 6 code = 3235) LOVE (test code = Disclaimer: This test was LOVE) developed and its performance characteristics determined by the [facility]. It has not been cleared or approved by the U.S. Food and Drug Administration. The FDA has determined that such clearance or approval is not necessary. This test is used for clinical purposes. It should not be regarded as investigational or for research. This laboratory is certified under the Clinical Laboratory Improvement Amendments of 1988 (CLIA-88) as qualified to perform high complexity clinical laboratory testing. [facility] FranciscoURINE [id number] 14:35:00 Test Item Value Reference Range Interpretation Comments CULTURE (BEAKER) ENTEROCOCCUS A 10-19,000 c ol/mL (test code = 1095) FAECALIS Enterococ cus faecalis Ampicillin (test S code = 26) Levofloxacin (test S code = 22) Linezolid (test code S = 40) Nitrofurantoin (test S code = 23) Tetracycline (test R code = 2) Vancomycin (test S code = 13) 10-19,000 col/mL skin floraFLOW PRA CLASS I WITH REFLEX TO ANTIBODY SPECIFICITY 2019-05-26 15:28:00 Test Item Value Reference Range Interpretation Comments Flow Class I 0 Percent Positive (test code = 3229) LOVE (test code = Disclaimer: This test was LOVE) developed and its performance characteristics determined by the [facility]. It has not been cleared or approved by the U.S. Food and Drug Administration. The FDA has determined that such clearance or approval is not necessary. This test is used for clinical purposes. It should not be regarded as investigational or for research. This laboratory is certified under the Clinical Laboratory Improvement Amendments of 1988 (CLIA-88) as qualified to perform high complexity clinical laboratory testing. [facility] FranciscoFLOW PRA CLASS II WITH REFLEX TO ANTIBODY [id number] 15:28:00 Test Item Value Reference Range Interpretation Comments Flow Class II 3 Percent Positive (test code = 3231) LOVE (test code = Disclaimer: This test was LOVE) developed and its performance characteristics determined by the [facility]. It has not been cleared or approved by the U.S. Food and Drug Administration. The FDA has determined that such clearance or approval is not necessary. This test is used for clinical purposes. It should not be regarded as investigational or for research. This laboratory is certified under the Clinical Laboratory Improvement Amendments of 1988 (CLIA-88) as qualified to perform high complexity clinical laboratory testing. [facility] [id number] 07:41:00 Test Item Value Reference Range Interpretation Comments T-Spot TB (test code = 97284-4) Negative Neg Ctrl Spot Count (test code = 0 36132-3) Panel A Spot (test code = 51281-8) 1 Panel B Spot (test code = 87841-4) [address] (test code = 0 03648-8) Scan Result (test code = 5645842) [facility]PR[facility] 10:31:00 Test Item Value Reference Range Interpretation Comments RPR (test code = 37942-8) Nonreactive Nonreactive Lab Interpretation (test code = Normal 48700-9) [facility] 10:31:00 Test Item Value Reference Range Interpretation Comments RPR SCREEN (BEAKER) (test code = Nonreactive Nonreactive 420) U/S, ABDOMINAL, [id number] 16:14:00Reason for Exam:->Kidney transplant evaluation; comment on number of renal cysts on each side to meet criteria for Acquired Cystic Kidney DiseaseFINAL REPORT TECHNIQUE: Grayscale ultrasound of the abdomen. INDICATION: 53-year-old man for renal transplant evaluation. COMPARISON: None. FINDINGS: MIDLINE VASCULATURE: The visualized inferior vena cava is patent. Portal vein is patent. The maximum visualized aortic diameter is 2.4 cm. LIVER: The liver is normal in size and echogenicity with smooth contour. No focal lesions.BILIARY:Gallbladder: No gallstones or sludge. No gallbladder wall thickening, pericholecystic fluid,or distention. Negative sonographic Villa sign.Common bile duct measures 0.4 cm, within normal limits. No intrahepatic biliary ductal dilatation. PANCREAS: The pancreas is not clearly visualized due to overlying bowel gas. SPLEEN: No splenomegaly. PERITONEUM: No free fluid. KIDNEYS: Both kidneys are echogenic, which limits accurate measurement. The right kidney measures approximately 6.9 x 4.3 x 2.4cm with cortical thickness of 0.8 cm. The left kidney measures approximately 7.6 x 3.8 x 3.7 cm withcortical thickness of 1.7 cm. No hydronephrosis. No sonographically evident solid mass. Simple cystsin the right kidney measure 1.5 x 1.6 x 1.7 cm and 1.1 x 0.9 x 1.4 cm. IMPRESSION:Echogenic kidneys, consistent with medical renal disease. Two simple right renal cysts. Signed: Tamika Phipps MDReport Verified Date/Time: 05/23/2019 16:14:42 Reading Location: [address] Radiology Reading Room US abdomen [id number] 16:14:00Interface, External Ris In - 05/23/2019 4:16 PM CSTFINAL REPORT TECHNIQUE: Grayscale ultrasound of the abdomen. INDICATION: 53-year-old man for renal transplant evaluation. COMPARISON: None. FINDINGS: MIDLINE VASCULATURE: The visualized inferior vena cava is patent. Portal vein is patent. The maximum visualized aortic diameter is 2.4 cm. LIVER: The liver is normal in size andechogenicity with smooth contour. No focal lesions. BILIARY:Gallbladder: No gallstones or sludge. Nogallbladder wall thickening, pericholecystic fluid, or distention. Negative sonographic Villa sign.Common bile duct measures 0.4 cm, within normal limits. No intrahepatic biliary ductal dilatation. PANCREAS: The pancreas is not clearly visualized due to overlying bowel gas. SPLEEN: No splenomegaly. PERITONEUM: No free fluid. KIDNEYS: Both kidneys are echogenic, which limits accurate measurement. Theright kidney measures approximately 6.9 x 4.3 x 2.4 cm with cortical thickness of 0.8 cm. The left kidney measures approximately 7.6 x 3.8 x 3.7 cm with cortical thickness of 1.7 cm. No hydronephrosis.No sonographically evident solid mass. Simple cysts in the right kidney measure 1.5 x 1.6 x 1.7 cm and 1.1 x 0.9 x 1.4 cm. IMPRESSION:Echogenic kidneys, consistent with medical renal disease. Two simple right renal cysts. Signed: Tamika Phipps Verified Date/Time: 05/23/2019 16:14:42 Reading Location: [address] [facility] 2 [id number] 16:02:00Reason for Exam:- >Pre kidney transplant evaluation.FINAL REPORT TECHNIQUE: Frontal and lateral views of the chest. INDICATION: 53-year-old man for renal transplant evaluation. COMPARISON: None. FINDINGS: LINES/TUBES: None. LUNGS: The lungs are well inflated. Streaky airspace opacities in both lung bases. PLEURA: No pleural effusion or pneumothorax. HEART AND MEDIASTINUM: The cardiomediastinal silhouette is within normal limits. Atherosclerotic calcifications in the thoracic aorta. SOFT TISSUES AND BONES: Degenerative changes of the visualized spine. Soft tissues are unremarkable. IMPRESSION:Bibasilar airspace opacities, likely atelectasis. Signed: Tamika Phipps MDReport Verified Date/Time: 05/23/2019 16:02:27 Reading Location: [address] Radiology Reading Room Electronically signed by: TAMIKA PHIPPS MD on05/23/2019 04:02 PMXR chest 2 [id number] 16:02:00Interface, External Ris In - 05/23/2019 4:04 PM CSTFINAL REPORT TECHNIQUE: Frontal and lateral views of the chest. INDICATION: 53-year-old man for renal transplant evaluation. COMPARISON: None. FINDINGS: LINES/TUBES: None. LUNGS: The lungs are well inflated. Streaky airspace opacities in both lung bases. PLEURA: No pleural effusion or pneumothorax. HEART AND MEDIASTINUM: The c ardiomediastinal silhouette is within normal limits. Atherosclerotic calcifications in the thoracic aorta. SOFT TISSUES AND BONES: Degenerative changes of the visualized spine. Soft tissues are unremarkable. IMPRESSION:Bibasilar airspace opacities, likely atelectasis. Signed: Tamika Phipps MDReportVerified Date/Time: 05/23/2019 16:02:27 Reading Location: [address] Radiology Reading Room [facility] HospitalVaricella Zoster Antibody, [id number] 15:17:00 Test Item Value Reference Range Interpretation Comments Varicella IgG (test 3.4 code = 89396-1) LOVE (test code = LOVE) VARICELLA ZOSTER RESULT INTERPRETATIONS: <=0.8 Al Nonreactive: Presumed non-immune to VZV 0.9-1.0 Al Equivocal >=1.1 Al Reactive: Presumed immune to VZV [facility] FranciscoCytomegalovirus antibody, [id number] 15:17:00 Test Item Value Reference Range Interpretation Comments CYTOMEGALOVIRUS, IGG Positive Negative, A (test code = 3429) Equivocal LOVE (test code = LOVE) CMV IgG Result Interpretation: </= 0.8 Al Negative 0.9-1.0 Al Equivocal >/=1.1 Al Positive Lab Interpretation (test Abnormal code = 80054-9) [facility] FranciscoEBV-VCA antibody, [id number] 15:17:00 Test Item Value Reference Range Interpretation Comments NIHARIKA HOOPER VIRAL Positive Negative, A CAPSID ANTIGEN IGG (test Equivocal code = 3415) LOVE (test code = LOVE) Niharika Hooper Viral Capsid Antigen IgG Result Interpretation: </= 0.8 Al Negative 0.9-1.0 Al Equivocal >/= 1.1 Al Positive Lab Interpretation (test Abnormal code = 91072-2) [facility] FranciscoEBV-VCA antibody, [id number] 15:17:00 Test Item Value Reference Range Interpretation Comments NIHARIKA HOOPER VIRAL Negative Negative, CAPSID ANTIGEN IGM (test Equivocal code = 3418) LOVE (test code = LOVE) Niharika Hooper Viral Capsid Antigen IgM Result Interpretation: </= 0.8 Al Negative 0.9-1.0 Al Equivocal >/= 1.1 Al Positive Lab Interpretation (test Normal code = 99240-7) [facility] FranciscoCytomegalovirus antibody, [id number] 15:17:00 Test Item Value Reference Range Interpretation Comments CMV IGM (test code = Negative Negative, 3437) Equivocal LOVE (test code = LOVE) CMV IgM Result Interpretation: </= 0.8 Al Negative 0.9-1.0 Al Equivocal >/= 1.1 Al Positive Lab Interpretation (test Normal code = 26775-2) [facility] FranciscoCYTOMEGALOVIRUS ANTIBODY, [id number] 15:17:00 Test Item Value Reference Range Interpretation Comments CYTOMEGALOVIRUS, IGG (BEAKER) Positive Negative, Equivocal A (test code = 3429) CMV IgG Result Interpretation: </= 0.8 Al Negative 0.9-1.0 Al Equivocal >/=1.1 Al PositiveCYTOMEGALOVIRUS ANTIBODY, [id number] 15:17:00 Test Item Value Reference Range Interpretation Comments CYTOMEGALOVIRUS IGM ANTIBODY Negative Negative, Equivocal (BEAKER) (test code = 3437) CMV IgM Result Interpretation: </= 0.8 Al Negative 0.9-1.0 Al Equivocal >/= 1.1 Al PositiveEBV ANTIBODY, [id number] 15:17:00 Test Item Value Reference Range Interpretation Comments NIHARIKA HOOPER VIRAL CAPSID Positive Negative, Equivocal A ANTIGEN IGG (BEAKER) (test code = 3415) Niharika Hooper Viral Capsid Antigen IgG Result Interpretation: </= 0.8 Al Negative 0.9-1.0 Al Equivocal >/= 1.1 Al PositiveEBV ANTIBODY, IGM 2019-05-23 15:17:00 Test Item Value Reference Range Interpretation Comments NIHARIKA HOOPER VIRAL CAPSID Negative Negative, Equivocal ANTIGEN IGM (BEAKER) (test code = 3418) Niharika Hooper Viral Capsid Antigen IgM Result Interpretation: </= 0.8 Al Negative 0.9-1.0 Al Equivocal >/= 1.1 Al PositiveVARICELLA ZOSTER ANTIBODY, [id number] 15:17:00 Test Item Value Reference Range Interpretation Comments VARICELLA ZOSTER IGG (AL) (BEAKER) 3.4 (test code = 3197) VARICELLA ZOSTER RESULT INTERPRETATIONS: <=0.8 Al Nonreactive: Presumed non-immune to VZV 0.9-1.0 Al Equivocal >=1.1 Al Reactive: Presumed immune to VZVHepatitis B surface [id number] 12:59:00 Test Item Value Reference Range Interpretation Comments Hep B S Ab (test code = 41082.3 <8.0 mIU/mL H 76593-3) LOVE (test code = LOVE) [employer] ID - [employer] Lab Interpretation (test Abnormal code = 75366-1) [facility] FranciscoHEPATITIS B SURFACE [id number] 12:59:00 Test Item Value Reference Range Interpretation Comments HEPATITIS B SURFACE ANTIBODY 43760.3 mIU/mL <8.0 H (BEAKER) (test code = 647) [employer] ID - Evergreen EnterprisesIANGHepatitis B core antibody, [id number] 12:47:00 Test Item Value Reference Range Interpretation Comments Hep B C IgM (test code = Nonreactive Nonreactive 23044-7) LOVE (test code = LOVE) [employer] ID - [employer] Lab Interpretation (test Normal code = 40029-6) [facility] FranciscoHepatitis C [id number] 12:47:00 Test Item Value Reference Range Interpretation Comments Hepatitis C Ab (test Nonreactive Nonreactive code = 97361-2) LOVE (test code = LOVE) [employer] ID - [employer] Lab Interpretation (test Normal code = 56572-1) [facility] FranciscoHIV-1 Antigen with HIV-1/2 [id number] 12:47:00 Test Item Value Reference Range Interpretation Comments HIV-1 Antigen with HIV Nonreactive Nonreactive 1&2 Antibody (test code = 82051-0) LOVE (test code = LOVE) [employer] ID - ROSIANG Lab Interpretation (test Normal code = 47879-5) [facility] FranciscoHEPATITIS B SURFACE [id number] 12:47:00 Test Item Value Reference Range Interpretation Comments HEPATITIS B SURFACE ANTIGEN (2) Nonreactive Nonreactive (BEAKER) (test code = 2585) [employer] ID - TIKAEPATITIS B CORE ANTIBODY, [id number] 12:47:00 Test Item Value Reference Range Interpretation Comments HEPATITIS B CORE IGM ANTIBODY Nonreactive Nonreactive (BEAKER) (test code = 645) [employer] ID - ROSIANGHEPATITIS C [id number] 12:47:00 Test Item Value Reference Range Interpretation Comments HEPATITIS C ANTIBODY (BEAKER) Nonreactive Nonreactive (test code = 367) [employer] ID - TIKAIV-1 ANTIGEN WITH HIV-1/2 [id number] 12:47:00 Test Item Value Reference Range Interpretation Comments HIV-1 ANTIGEN WITH HIV 1\T\2 Nonreactive Nonreactive ANTIBODY (2) (BEAKER) (test code = 2586) [employer] ID - ROSIANGDirect AHG (ILDEFONSO)/Direct [id number] 12:41:00 Test Item Value Reference Range Interpretation Comments Direct AHG-IGG (test code = 1006-6) NEGATIVE Direct AHG-C3B, C3D (test code = NEGATVIE 1003-3) [facility] FranciscoBlood typing, [id number] 12:13:00 Test Item Value Reference Range Interpretation Comments ABO/RH AUTOMATED (BEAKER) (test O POSITIVE code = 2260) [facility], [id number] 12:03:00 Test Item Value Reference Range Interpretation Comments PTH (test code = 2731-8) 430.9 pg/mL 8.5-72.5 H LOVE (test code = LOVE) [employer] ID - [place] Lab Interpretation (test Abnormal code = 53578-4) [facility], [id number] 12:03:00 Test Item Value Reference Range Interpretation Comments PARATHYROID HORMONE INTACT 430.9 pg/mL 8.5-72.5 H (BEAKER) (test code = 577) [employer] ID - LAComprehensive metabolic [id number] 11:56:00 Test Item Value Reference Range Interpretation Comments Protein, Total (test 9.3 6.0- 8.3 gm/dL H code = 2885-2) Albumin (test code = 5.4 g/dL 3.5-5 H 44872-6) Alkaline Phosphatase 73 U/L 40-150 (test code = 6768-6) Total Bilirubin (test 0.5 mg/dL 0.2-1.2 code = 1975-2) Sodium (test code = 140 meq/L 784-345 6945-2) Potassium (test code = 3.8 meq/L 3.5-5.1 2823-3) Chloride (test code = 100 meq/L 98-107 2075-0) CO2 (test code = 26 meq/L 22-29 2028-9) BUN (test code = 49 mg/dL 7-21 H 3094-0) Creatinine (test code 8.13 mg/dL 0.57-1.25 H = 2160-0) Glucose (test code = 98 mg/dL 70-105 2345-7) Calcium (test code = 9.3 mg/dL 8.4-10.2 02797-3) AST (test code = 14 U/L 5-34 1920-8) ALT (test code = 13 U/L 6-55 1742-6) EGFR (test code = 7 mL/min/1.73 [place] [address]-0) NOT ACCURATE CREATININE CLEARANCE IN PREDICTING GLOMERULAR FILTRATION RATE . ESTIMATED GFR I S NOT APPLICABLE FOR DIALYSIS PATIENTS. LOVE (test code = LOVE) [employer] ID - [place] Lab Interpretation Abnormal (test code = 80739-1) [facility] FranciscoCOMPREHENSIVE METABOLIC [id number] 11:56:00 Test Item Value Reference Range Interpretation Comments TOTAL PROTEIN 9.3 gm/dL 6.0-8.3 H (BEAKER) (test code = 770) ALBUMIN (BEAKER) 5.4 g/dL 3.5-5.0 H (test code = 1145) ALKALINE PHOSPHATASE 73 U/L 40-150 (BEAKER) (test code = 346) BILIRUBIN TOTAL 0.5 mg/dL 0.2-1.2 (BEAKER) (test code = 377) SODIUM (BEAKER) (test 140 meq/L 136-145 code = 381) POTASSIUM (BEAKER) 3.8 meq/L 3.5-5.1 (test code = 379) CHLORIDE (BEAKER) 100 meq/L 98-107 (test code = 382) CO2 (BEAKER) (test 26 meq/L 22-29 code = 355) BLOOD UREA NITROGEN 49 mg/dL 7-21 H (BEAKER) (test code = 354) CREATININE (BEAKER) 8.13 mg/dL 0.57-1.25 H (test code = 358) GLUCOSE RANDOM 98 mg/dL 70-105 (BEAKER) (test code = 652) CALCIUM (BEAKER) 9.3 mg/dL 8.4-10.2 (test code = 697) AST (SGOT) (BEAKER) 14 U/L 5-34 (test code = 353) ALT (SGPT) (BEAKER) 13 U/L 6-55 (test code = 347) EGFR (BEAKER) (test 7 mL/min/1.73 ESTIMAT ED GFR IS code = 1092) sq m NOT ACCURATE CREATININE CLEARANCE IN PREDICTING GLOMERULAR FILTRATION RATE . ESTIMATED GFR I S NOT APPLICABLE FOR DIALYSIS PATIEN TS. [employer] ID - LAGamma Glutamyl Transferase (GGT)2019-05-23 11:55:00 Test Item Value Reference Range Interpretation Comments GGT (test code = 2324-2) 20 U/L 9-64 LOVE (test code = LOVE) [employer] ID - [place] Lab Interpretation (test Normal code = 71731-7) [facility] FranciscoLactate Dehydrogenase (LDH)2019-05-23 11:55:00 Test Item Value Reference Range Interpretation Comments LDH (test code = 2532-0) 249 U/L 125-220 H LOVE (test code = LOVE) [employer] ID - [place] Lab Interpretation (test Abnormal code = 67300-9) [facility] FranciscoUric [id number] 11:55:00 Test Item Value Reference Range Interpretation Comments Uric Acid (test code = 5.5 mg/dL 2.6-7.2 3084-1) LOVE (test code = LOVE) [employer] ID - [place] Lab Interpretation (test Normal code = 29105-9) [facility] FranciscoURIC [id number] 11:55:00 Test Item Value Reference Range Interpretation Comments URIC ACID (BEAKER) (test code = 5.5 mg/dL 2.6-7.2 773) [employer] ID - [id number] 11:55:00 Test Item Value Reference Range Interpretation Comments PHOSPHORUS (BEAKER) (test code = 5.5 mg/dL 2.3-4.7 H 604) [employer] ID - LAGAMMA GLUTAMYL TRANSFERASE (GGT)2019-05-23 11:55:00 Test Item Value Reference Range Interpretation Comments GAMMA GLUTAMYL TRANSFERASE (BEAKER) 20 U/L 9-64 (test code = 364) [employer] ID - LALACTATE DEHYDROGENASE (LDH)2019-05-23 11:55:00 Test Item Value Reference Range Interpretation Comments LACTATE DEHYDROGENASE (BEAKER) (test 249 U/L 125-220 H code = 635) [employer] ID - LAUrinalysis, [id number] 11:43:00 Test Item Value Reference Range Interpretation Comments Color, UA (test code = Yellow 5778-6) Clarity, UA (test code = Clear 5767-9) Specific [place], UA (test 1.018 1.001-1.035 code = 5811-5) pH, UA (test code = 6.5 5.0-8.0 5803-2) Protein, UA (test code = 600 mg/dL Negative A 14724-8) Glucose, UA (test code = 500 mg/dL Negative A 365) Ketones, UA (test code = Negative Negative 2514-8) Bilirubin, UA (test code = Negative Negative 77436-2) Blood, UA (test code = Small Negative A 66322-1) Nitrite, UA (test code = Negative Negative 5802-4) Leukocytes, UA (test code Negative Negative = 5799-2) Urobilinogen, UA (test 0.2 mg/dL 0.2-1 code = 61542-8) RBC, UA (test code = <1 /HPF 92851-8) WBC, UA (test code = <1 /HPF 5821-4) Specimen Source (test code = 2795) LOVE (test code = LOVE) [employer] ID - [auto][employer] ID - tech Lab Interpretation (test Abnormal code = 52313-3) [facility] FranciscoURINALYSIS W/ [id number] 11:43:00 Test Item Value Reference Range Interpretation Comments COLOR (BEAKER) (test code = 470) Yellow CLARITY (BEAKER) (test code = 469) Clear SPECIFIC GRAVITY UA (BEAKER) (test 1.018 1.001-1.035 code = 468) PH UA (BEAKER) (test code = 467) 6.5 5.0-8.0 PROTEIN UA (BEAKER) (test code = 600 mg/dL Negative A 464) GLUCOSE UA (BEAKER) (test code = 500 mg/dL Negative A 365) KETONES UA (BEAKER) (test code = Negative Negative 371) BILIRUBIN UA (BEAKER) (test code = Negative Negative 462) BLOOD UA (BEAKER) (test code = 461) Small Negative A NITRITE UA (BEAKER) (test code = Negative Negative 465) LEUKOCYTE ESTERASE UA (BEAKER) Negative Negative (test code = 466) UROBILINOGEN UA (BEAKER) (test code 0.2 mg/dL 0.2-1.0 = 463) RBC UA (BEAKER) (test code = 519) < /HPF WBC UA (BEAKER) (test code = 520) < /HPF SOURCE(BEAKER) (test code = 2795) [employer] ID - [auto][employer] ID - techPT/[id number] 11:32:00 Test Item Value Reference Range Interpretation Comments Protime (test code = 12.8 11.9- 14.2 5902-2) seconds INR (test code = 1.0 <=5.9 6301-6) PTT (test code = 30.4 22.5- 36.0 49388-5) seconds LOVE (test code = LOVE) Effective 09/28/2018: PT Reference Range ChangeNew: 11.9-14.2 Previous: 11.7-14.7 RECOMMENDED COUMADIN/WARFARIN INR THERAPY RANGESSTANDARD DOSE: 2.0-3.0 Includes: PROPHYLAXIS for venous thrombosis, systemic embolization; TREATMENT for venous thrombosis and/or pulmonary embolus.HIGH RISK: Target INR is 2.5-3.5 for patients wiht mechanical heart valves. Lab Interpretation Normal (test code = 72177-0) [facility] FranciscoPT/[id number] 11:32:00 Test Item Value Reference Range Interpretation Comments PROTIME (BEAKER) (test code = 12.8 seconds 11.9-14.2 759) INR (BEAKER) (test code = 370) 1.0 <=5.9 PARTIAL THROMBOPLASTIN TIME 30.4 seconds 22.5-36.0 (BEAKER) (test code = 760) Effective 09/28/2018: PT Reference Range ChangeNew: 11.9-14.2 Previous: 11.7- 14.7RECOMMENDED COUMADIN/WARFARIN INR THERAPY RANGESSTANDARD DOSE: 2.0-3.0 Includes: PROPHYLAXIS for venous thrombosis, systemic embolization; TREATMENT for venous thrombosis and/or pulmonary embolus.HIGH RISK: Target INR is2.5-3.5 for patients wiht mechanical heart valves.PROTHROMBIN TIME/[id number] 11:31:00 Test Item Value Reference Range Interpretation Comments PROTIME (BEAKER) (test code = 12.8 seconds 11.9-14.2 759) INR (BEAKER) (test code = 370) 1.0 <=5.9 Effective 09/28/2018: PT Reference Range ChangeNew: 11.9-14.2 Previous: 11.7- 14.7RECOMMENDED COUMADIN/WARFARIN INR THERAPY RANGESSTANDARD DOSE: 2.0-3.0 Includes: PROPHYLAXIS for venous thrombosis, systemic embolization; TREATMENT for venous thrombosis and/or pulmonary embolus.HIGH RISK: Target INR is2.5-3.5 for patients wiht mechanical heart valves.CBC W/PLT COUNT & AUTO [id number] 11:27:00 Test Item Value Reference Range Interpretation Comments WHITE BLOOD CELL COUNT (BEAKER) 9.6 K/ L 3.5-10.5 (test code = 775) RED BLOOD CELL COUNT (BEAKER) 4.48 M/ L 4.63-6.08 L (test code = 761) HEMOGLOBIN (BEAKER) (test code = 13.4 GM/DL 13.7-17.5 L 410) HEMATOCRIT (BEAKER) (test code = 40.5 % 40.1-51.0 411) MEAN CORPUSCULAR VOLUME (BEAKER) 90.4 fL 79.0-92.2 (test code = 753) MEAN CORPUSCULAR HEMOGLOBIN 29.9 pg 25.7-32.2 (BEAKER) (test code = 751) MEAN CORPUSCULAR HEMOGLOBIN CONC 33.1 GM/DL 32.3-36.5 (BEAKER) (test code = 752) RED CELL DISTRIBUTION WIDTH 14.4 % 11.6-14.4 (BEAKER) (test code = 412) PLATELET COUNT (BEAKER) (test 361 K/CU MM 150-450 code = 756) MEAN PLATELET VOLUME (BEAKER) 9.8 fL 9.4-12.4 (test code = 754) NUCLEATED RED BLOOD CELLS 0 /100 WBC 0-0 (BEAKER) (test code = 413) NEUTROPHILS RELATIVE PERCENT 68 % (BEAKER) (test code = 429) LYMPHOCYTES RELATIVE PERCENT 22 % (BEAKER) (test code = 430) MONOCYTES RELATIVE PERCENT 8 % (BEAKER) (test code = 431) EOSINOPHILS RELATIVE PERCENT 2 % (BEAKER) (test code = 432) BASOPHILS RELATIVE PERCENT 1 % (BEAKER) (test code = 437) NEUTROPHILS ABSOLUTE COUNT 6.46 K/ L 1.78-5.38 H (BEAKER) (test code = 670) LYMPHOCYTES ABSOLUTE COUNT 2.10 K/ L 1.32-3.57 (BEAKER) (test code = 414) MONOCYTES ABSOLUTE COUNT (BEAKER) 0.74 K/ L 0.30-0.82 (test code = 415) EOSINOPHILS ABSOLUTE COUNT 0.16 K/ L 0.04-0.54 (BEAKER) (test code = 416) BASOPHILS ABSOLUTE COUNT (BEAKER) 0.08 K/ L 0.01-0.08 (test code = 417) IMMATURE GRANULOCYTES-RELATIVE 0 % 0-1 PERCENT (BEAKER) (test code = 4782)
[2020-04-22] MEDS ORDERED: ALBUTEROL INHALER 60 PUFF/8 GM IH ONE (19:57)
[2020-04-22] MEDS ORDERED: HYDROCODONE/CHLORPHEN 5 ML/OSYR ONE (19:57)
[2020-04-22 19:59] LABS: Absolute Lymphocytes (CBC) 1.1 K/uL (0.7-4.9); Basophils % 1.7 % (0-1.3); Hematocrit 34.9 % (39.6-49.0); Lymphocytes % 15.4 % (15.3-44.8); RBC Red Blood Cell Count 3.73 M/uL (4.33-5.43)
[2020-04-22 20:07] LABS: Albumin 4.6 g/dL (3.4-5.0); Bilirubin Total 0.4 mg/dL (0.2-1.0); Potassium 4.5 mmol/L (3.5-5.1); Protein, Total 8.7 g/dL (6.4-8.2)
--- NOTE | 2020-04-22 20:11 | RAD REPORT ---
EXAM DESCRIPTION: RAD - Chest Single View - 04/22/2020 7:57 pm CLINICAL HISTORY: Cough;Congestion Chest pain. COMPARISON: Chest Single View dated 11/18/2018; Chest Single View dated 11/09/2018; Chest Single View dated 08/07/2018; Chest Single View dated 08/06/2018 FINDINGS: Portable technique limits examination quality. The lungs are grossly clear. The heart is mildly prominent. No displaced fractures. IMPRESSION: No acute intrathoracic process suspected.
--- NOTE | 2020-04-22 20:46 | ER ---
Nurse's Notes [facility] Name: Alejandro Dunbar Age: 54 yrs Sex: Male : 1965 Arrival Date: 04/22/2020 Time: 17:56 Bed 19 Private MD: Diagnosis: Acute upper respiratory infection, unspecified Presentation: 04/22 18:00 Chief complaint: Patient states: Dialysis sent me here cause she thinks I may have ca1 pneumonia. Cough and congestion x 3 weeks. Denies fever. Coronavirus screen: Client denies travel out of the [place] in the last 14 days. congestion, cough unrelated to allergies, Client presents with at least one sign or symptom that may indicate coronavirus-19. Standard/surgical mask placed on the client. Provider contacted for isolation considerations. The client reports previous COVID testing was negative. Date of collection: March 2020. Ebola Screen: Patient negative for fever greater than or equal to 101.5 degrees Fahrenheit, and additional compatible Ebola Virus Disease symptoms Patient denies exposure to infectious person. Patient denies travel to an Ebola-affected area in the 21 days before illness onset. No symptoms or risks identified at this time. Initial Sepsis Screen: Does the patient meet any 2 criteria? No. Patient's initial sepsis screen is negative. Does the patient have a suspected source of infection? No. Patient's initial sepsis screen is negative. Risk Assessment: Do you want to hurt yourself or someone else? Patient reports no desire to harm self or others. Onset of symptoms was April 22, 2020. 18:00 Method Of Arrival: Ambulatory ca1 18:00 Acuity: KERRI 3 ca1 Historical: - Allergies: 18:04 No Known Allergies; ca1 - PMHx: 18:04 Diabetes - NIDDM; Dialysis; High Cholesterol; Hypertension; Hypothyroidism; ca1 - Immunization history:: Adult Immunizations up to date, Flu vaccine is up to date. - Social history:: Smoking status: Patient reports the use of cigarette tobacco products, denies chronic smoking, but will smoke occasionally. Screenin:47 Abuse screen: Denies threats or abuse. Denies injuries from another. Nutritional rv screening: No deficits noted. Tuberculosis screening: No symptoms or risk factors identified. Fall Risk None identified. Assessment: 19:47 General: Appears comfortable, Behavior is calm, cooperative. Pain: Denies pain. Neuro: rv Level of Consciousness is awake, alert, obeys commands, Oriented to person, place, time, situation. Cardiovascular: Patient's skin is warm and dry. Respiratory: Airway is patent Respiratory effort is even, unlabored, Breath sounds with wheezes bilaterally. Derm: Skin is intact. Vital Signs: 18:00 BP 158 / 93; Pulse 71; Resp 18 S; Temp 97.5(O); Pulse Ox 99% on R/A; Weight 80.74 kg ca1 (R); Height 5 ft. 4 in. (162.56 cm) (R); Pain 0/10; 19:47 BP 166 / 95; Pulse 65; Resp 16; Pulse Ox 100% on R/A; rv 21:00 BP 145 / 96; Pulse 66; Resp 16; Temp 89; Pulse Ox 99% ; rv 18:00 Body Mass Index 30.55 (80.74 kg, 162.56 cm) ca1 ED Course: 17:56 Patient arrived in ED. ag5 18:02 Triage completed. ca1 18:04 Arm band placed on right wrist. ca1 19:00 Daniel Cavazos NP is PHCP. pm1 19:00 Tomas Cast MD is Attending Physician. pm1 19:03 Saurabh Quiroz, SANJAY is Primary Nurse. bp 19:36 Inserted saline lock: 20 gauge in right antecubital area, using aseptic technique. rv Blood collected. 19:36 Initial lab(s) drawn, by md, sent to lab. Flu and/or RSV swab sent to lab. Strep swab rv sent to lab. 19:48 Patient has correct armband on for positive identification. Placed in gown. Bed in low rv position. Call light in reach. Side rails up X 1. Pulse ox on. NIBP on. 19:57 CXR XRAY In Process Unspecified. EDMS 21:00 No provider procedures requiring assistance completed. IV discontinued, intact, rv bleeding controlled, No redness/swelling at site. Pressure dressing applied. Administered Medications: 19:48 Drug: Albuterol HFA Inhaler 2 puffs Route: Inhalation; rv 20:59 Follow up: Response: No adverse reaction rv 19:48 Drug: Tussionex Pennkinetic ER 5 ml Route: PO; rv 20:58 Follow up: Response: No adverse reaction rv Outcome: 20:46 Discharge ordered by . pm1 21:00 Discharged to home ambulatory. rv 21:00 Condition: good 21:00 Discharge instructions given to patient, Instructed on discharge instructions, follow up and referral plans. medication usage, Demonstrated understanding of instructions, follow-up care, medications, Prescriptions given X 2. 21:00 Patient left the ED. rv Addendum: 04/24/2020 17:14 Addendum: COVID-19 Result: Negative result given to RN to notify pt. Attempted to s landon contact pt regarding negative COVID-19 swab results. 17:55 Addendum: COVID-19 Result: Negative result given to RN to notify pt. Contacted by: leora Barnes RN . Notified pt of negative COVID 19 swab results. Pt advised that even with a negative test result they should remain in isolation until symptom free for 3 days without medication. Pt also advised to return to the ED for worsening symptoms. Signatures: Dispatcher [employer] EDMolly Grigsby RN RN sv Daniel Cavazos, TOP COATER TOP COATER pm1 Saurabh Quiroz RN RN bp Vahe Adan RN RN rv Lore Steve RN RN ca1 Nina Moreno ag5 Corrections: (The following items were deleted from the chart) 04/22 18:03 18:00 Coronavirus screen: Client denies travel out of the [place] in the last 14 days. ca1 congestion, cough unrelated to allergies, Client presents with at least one sign or symptom that may indicate coronavirus-19. Standard/surgical mask placed on the client. Provider contacted for isolation considerations. ca1
--- NOTE | 2020-04-22 20:46 | EDPHYS ---
Physician Documentation [facility] Name: Alejandro Dunbar Age: 54 yrs Sex: Male : 1965 Arrival Date: 04/22/2020 Time: 17:56 Bed 19 Private MD: ED Physician Tomas Cast HPI: 04/22 19:08 This 54 yrs old Male presents to ER via Ambulatory with complaints of Cough, pm1 Congestion. 19:08 The patient or guardian reports cough, with no sputum. Onset: The symptoms/episode pm1 began/occurred 3 week(s) ago. Severity of symptoms: in the emergency department the symptoms are unchanged. Modifying factors: The symptoms are alleviated by nothing, the symptoms are aggravated by nothing. Associated signs and symptoms: Pertinent positives: sore throat, Pertinent negatives: chest pain, fever, shortness of breath. 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 Historical: - Allergies: 18:04 No Known Allergies; ca1 - PMHx: 18:04 Diabetes - NIDDM; Dialysis; High Cholesterol; Hypertension; Hypothyroidism; ca1 - Immunization history:: Adult Immunizations up to date, Flu vaccine is up to date. - Social history:: Smoking status: Patient reports the use of cigarette tobacco products, denies chronic smoking, but will smoke occasionally. ROS: 19:08 Constitutional: Negative for fever, chills, and weight loss, Cardiovascular: Negative pm1 for chest pain, palpitations, and edema. 19:08 Abdomen/GI: Negative for abdominal pain, nausea, vomiting, diarrhea, and constipation, Back: Negative for injury and pain, MS/Extremity: Negative for injury and deformity, Skin: Negative for injury, rash, and discoloration. 19:08 Neuro: Negative for headache, weakness, numbness, tingling, and seizure. 19:08 Respiratory: Positive for cough, Negative for shortness of breath. 19:08 Neuro: Positive for 19:08 ENT: Positive for sore throat. pm1 Exam: 19:08 Constitutional: This is a well developed, well nourished patient who is awake, alert, pm1 and in no acute distress. Head/Face: Normocephalic, atraumatic. 19:08 Back: No spinal tenderness. No costovertebral tenderness. Full range of motion. Skin: Warm, dry with normal turgor. Normal color with no rashes, no lesions, and no evidence of cellulitis. MS/ Extremity: Pulses equal, no cyanosis. Neurovascular intact. Full, normal range of motion. 19:08 Cardiovascular: Exam negative for acute changes, Rate: normal, Rhythm: regular, Pulses: no pulse deficits are appreciated, Edema: is not appreciated. 19:08 Respiratory: the patient does not display signs of respiratory distress, Respirations: no acute changes, Breath sounds: wheezing: expiratory that is mild. 19:08 Neuro: Exam negative for acute changes, Orientation: is normal, Mentation: is normal, Motor: is normal, moves all fours. Vital Signs: 18:00 BP 158 / 93; Pulse 71; Resp 18 S; Temp 97.5(O); Pulse Ox 99% on R/A; Weight 80.74 kg ca1 (R); Height 5 ft. 4 in. (162.56 cm) (R); Pain 0/10; 19:47 BP 166 / 95; Pulse 65; Resp 16; Pulse Ox 100% on R/A; rv 21:00 BP 145 / 96; Pulse 66; Resp 16; Temp 89; Pulse Ox 99% ; rv 18:00 Body Mass Index 30.55 (80.74 kg, 162.56 cm) ca1 MDM: 19:01 Patient medically screened. pm1 20:41 Data reviewed: vital signs. Data interpreted: Pulse oximetry: on room air is 100 %. pm1 Interpretation: normal. Counseling: I had a detailed discussion with the patient and/or guardian regarding: the historical points, exam findings, and any diagnostic results supporting the discharge/admit diagnosis, lab results, radiology results, the need for outpatient follow up, to return to the emergency department if symptoms worsen or persist or if there are any questions or concerns that arise at home. 20:41 ED course: Informed pending covid test in 2-3 days. pm1 04/22 19:07 Order name: COVID-19 pm1 04/22 19:07 Order name: Flu; Complete Time: 20:01 pm1 12 19:07 Order name: Strep; Complete Time: 20:16 pm1 04/22 19:08 Order name: CBC with Diff; Complete Time: 20:16 pm1 04/22 19:08 Order name: CMP; Complete Time: 20:16 pm1 04/22 20:07 Order name: Throat Culture EDMS 04/22 19:07 Order name: CXR XRAY; Complete Time: 20:16 pm1 04/22 19:07 Order name: Droplet/Contact Precautions; Complete Time: 19:48 pm1 04/22 19:07 Order name: O2 Per Protocol; Complete Time: 19:48 pm1 04/22 19:08 Order name: IV Saline Lock; Complete Time: 19:48 pm1 Administered Medications: 19:48 Drug: Albuterol HFA Inhaler 2 puffs Route: Inhalation; rv 20:59 Follow up: Response: No adverse reaction rv 19:48 Drug: Tussionex Pennkinetic ER 5 ml Route: PO; rv 20:58 Follow up: Response: No adverse reaction rv Disposition: 04/22/20 20:46 Discharged to Home. Impression: Acute upper respiratory infection, unspecified. - Condition is Stable. - Discharge Instructions: Antibiotic Resistance, Upper Respiratory Infection, Adult. - Prescriptions for Albuterol Sulfate 90 mcg/actuation - inhale 1-2 puff by INHALATION route every 4-6 hours; 1 Inhaler. Guaifenesin AC 10- 100 mg/5 mL Oral Liquid - take 10 milliliter by ORAL route every 4 hours As needed; 240 milliliter. - Medication Reconciliation Form, Thank You Letter, Antibiotic Education, Prescription Opioid Use form. - Follow up: Emergency Department; When: As needed; Reason: Worsening of condition. Follow up: Private Physician; When: 2 - 3 days; Reason: Recheck today's complaints, Continuance of care, Re-evaluation by your physician. - Problem is new. - Symptoms have improved. Addendum: 04/28/2020 09:06 Co-signature as Attending Physician, Tomas Cast MD. r n Signatures: Dispatcher [employer] EDIA Tomas Cast MD MD rn Marinas, Patrick, JACKSCREW MAN JACKSCREW MAN pm1 Vahe Adan RN RN rv Acob, Cheryl, RN RN ca1 Corrections: (The following items were deleted from the chart) 04/22 21:00 20:46 04/22/2020 20:46 Discharged to Home. Impression: Acute upper respiratory rv infection, unspecified. Condition is Stable. Forms are Medication Reconciliation Form, Thank You Letter, Antibiotic Education, Prescription Opioid Use. Follow up: Emergency Department; When: As needed; Reason: Worsening of condition. Follow up: Private Physician; When: 2 - 3 days; Reason: Recheck today's complaints, Continuance of care, Re-evaluation by your physician. Problem is new. Symptoms have improved. pm1
[2020-04-24 02:08] VITALS: O2SAT 99
[2020-04-24 02:16] VITALS: BP 146/86; TEMP 98
== END 2020-04-22 21:00 | disposition home or self-care (01) ==
LOC: ER 17:55
DX: J06.9 Acute upper respiratory infection, unspecified (principal); Z20.828 Contact with and (suspected) exposure to other viral communicable diseases; I10 Essential (primary) hypertension; Z72.0 Tobacco use; Z99.2 Dependence on renal dialysis
CPT/HCPCS: 87070; 85025; 36415; 87081; 80053; 87804 ×2; 71045; 99284; U0002

== ENCOUNTER 2020-06-16 09:20 | Observation (INO) | payer OTHER ==
[2020-06-16 09:46] LABS: Basophils % 2.1 % (0-1.3); Hematocrit 33.5 % (39.6-49.0); Lymphocytes % 14.9 % (15.3-44.8); MPV 7.3 fL (7.6-11.3); RBC Red Blood Cell Count 3.51 M/uL (4.33-5.43)
[2020-06-16 09:47] LABS: Protime INR 0.93
[2020-06-16 10:21] LABS: ALT/SGPT 19 U/L (12-78); AST/SGOT 25 U/L (15-37); Albumin 4.2 g/dL (3.4-5.0); Alkaline Phosphatase 71 U/L (45-117); BUN Blood Urea Nitrogen 23 mg/dL (7-18); Bicarbonate 27 mmol/L (21-32); Bilirubin Direct < 0.1 mg/dL (0-0.2); Bilirubin Total 0.3 mg/dL (0.2-1.0); Glucose Level 119 mg/dL (74-106); Magnesium 2.1 mg/dL (1.8-2.4); NT PRO-BNP 793 pg/mL (<125); Potassium 3.4 mmol/L (3.5-5.1); Protein, Total 8.9 g/dL (6.4-8.2); Sodium Level 135 mmol/L (136-145); Troponin (Emerg Dept Use Only) < 0.02 ng/mL (0.0-0.045)
--- NOTE | 2020-06-16 10:39 | RAD REPORT ---
EXAM DESCRIPTION: Phil Single View06/16/2020 9:48 am CLINICAL HISTORY: Chest pain COMPARISON: 2019 FINDINGS: The lungs appear clear of acute infiltrate. The heart is mildly to moderately enlarged. A central venous catheter has its tip in the right atrium IMPRESSION: No acute abnormalities displayed
--- NOTE | 2020-06-16 10:39 | RAD REPORT ---
EXAM DESCRIPTION: CT - Soft Tissue Neck Wo Contr - 06/16/2020 10:17 am CLINICAL HISTORY: Neck pain/dysphasia COMPARISON: None TECHNIQUE: Computed axial tomography of the neck was obtained. IV contrast was not requested. Coron al and sagittal reconstruction was performed. All CT scans are performed using dose optimization technique as appropriate and may include automated exposure control or mA/KV adjustment according to patient size. FINDINGS: The pharynx, tongue base, larynx and subglottic trachea appear unremarkable The parotid, submandibular and thyroid glands appear unremarkable. No lymphadenopathy is seen Fluid within the sinuses/mastoids is not seen. 3.8 centimeter fluid collection left temporal fossa li ramon arachnoid cyst IMPRESSION: Unremarkable unenhanced CT scan neck.
[2020-06-16 10:53] LABS: SARS-COV-2 RT PCR NEGATIVE (NEGATIVE)
--- NOTE | 2020-06-16 11:24 | ER ---
Nurse's Notes [facility] Name: Alejandro Dunbar Age: 55 yrs Sex: Male : 1965 Arrival Date: 06/16/2020 Time: 09:24 Bed 7 Private MD: Diagnosis: Chest pain, unspecified Presentation: 06/16 09:25 Chief complaint: Patient states: sharp chest pain with about 20 mins left of HD to be sv done. Nitro SL x 2 given with relief, denies CP at this time. Coronavirus screen: Client denies travel out of the [place] in the last 14 days. At this time, the client does not indicate any symptoms associated with coronavirus-19. Ebola Screen: No symptoms or risks identified at this time. Risk Assessment: Do you want to hurt yourself or someone else? Patient reports no desire to harm self or others. Onset of symptoms was June 16, 2020. 09:25 Method Of Arrival: EMS: [facility] sv 09:25 Acuity: KERRI 3 sv 09:27 Initial Sepsis Screen: Does the patient meet any 2 criteria? No. Patient's initial sv sepsis screen is negative. Does the patient have a suspected source of infection? No. Patient's initial sepsis screen is negative. Triage Assessment: 09:28 General: Appears in no apparent distress. comfortable, Behavior is calm, cooperative, sv appropriate for age. Pain: Denies pain. Neuro: Level of Consciousness is awake, alert, obeys commands, Oriented to person, place, time, situation, Moves all extremities. Full function. Cardiovascular: Patient's skin is warm and dry. Rhythm is sinus rhythm. Cardiovascular: Dialysis shunt: in the left clavicle, with no edema, no bleeding noted. Respiratory: Respiratory effort is even, unlabored, Respiratory pattern is regular, symmetrical. Derm: Skin is pink, warm \\T\\ dry. Historical: - Allergies: :26 No Known Allergies; sv - PMHx: :26 Diabetes - NIDDM; Dialysis; High Cholesterol; Hypertension; Hypothyroidism; sv - Immunization history:: Adult Immunizations up to date. - Social history:: Smoking status: . Screenin: Abuse screen: Denies threats or abuse. Denies injuries from another. Nutritional sv screening: No deficits noted. Tuberculosis screening: No symptoms or risk factors identified. Fall Risk None identified. Assessment: 11:29 Reassessment: Patient appears in no apparent distress at this time. No changes from sv previously documented assessment. Patient and/or family updated on plan of care and expected duration. Pain level reassessed. Patient is alert, oriented x 3, equal unlabored respirations, skin warm/dry/pink. 11:50 Reassessment: Dr Rosario at the bedside. sv 12:07 Reassessment: Awaiting admission orders. sv 12:40 Reassessment: Attempted to call report, nurse unavailable. sv 13:00 Reassessment: Patient appears in no apparent distress at this time. No changes from sv previously documented assessment. Patient and/or family updated on plan of care and expected duration. Pain level reassessed. Patient is alert, oriented x 3, equal unlabored respirations, skin warm/dry/pink. Vital Signs: 09:27 BP 126 / 79; Pulse 70; Resp 12; Temp 97.2; Pulse Ox 99% ; Weight 80 kg; Height 5 ft. 4 sv in. (162.56 cm); Pain 0/10; 10:35 BP 154 / 86; Pulse 65 MON; Resp 19; Pulse Ox 100% on R/A; sv 11:21 BP 146 / 82; Pulse 62; Resp 14; Pulse Ox 97% ; sv 12:30 BP 133 / 88; Pulse 65; Resp 20; Pulse Ox 100% on R/A; sv 09:27 Body Mass Index 30.27 (80.00 kg, 162.56 cm) sv 10:35 Sinus Rhythm sv ED Course: 09:19 EKG done, by ED staff, reviewed by Chao DAVIS. sv 09:24 Patient arrived in ED. sv 09:25 Molly Mckeon, SANJAY is Primary Nurse. sv 09:26 Triage completed. sv 09:26 Arm band placed on. sv 09:26 Maintain EMS IV. Dressing intact. Good blood return noted. Site clean \\T\\ dry. Gauge \\T\\ sv site: 18G R AC. Patient maintains SpO2 saturation greater than 95% on room air. 09:27 [facility] 09:27 Lukasz Chacon MD is Attending Physician. [facility] 09:27 Patient has correct armband on for positive identification. Placed in gown. Bed in low sv position. Call light in reach. Side rails up X2. revenue stamper on. Pulse ox on. NIBP on. Door closed. Head of bed elevated. 09:34 Nurse Practitioner and/or Physician Nephrology Nurse to see patient. sv 09:34 Basic Metabolic Panel Sent. sv 09:34 CBC with Diff Sent. sv 09:34 LFT's Sent. sv 09:34 Magnesium Sent. sv 09:34 NT PRO-BNP Sent. sv 09:34 PT-INR Sent. sv 09:34 Troponin (emerg Dept Use Only) Sent. sv 09:44 X-ray(s) taken. sv 09:44 XRAY Chest (1 view) Sent. sv 09:50 TSH Sent. sv 09:50 Flu Sent. sv 09:50 Strep Sent. sv 09:50 Strep Sent. sv 09:50 COVID-19 : Document "Date of Symptom Onset" if Symptomatic. Sent. sv 10:31 Influenza Screen (A Sent. sv 10:31 CORONAVIRUS Sent. sv 10:31 Group A Streptococcus Rapid Sc Sent. sv 10:46 CT Soft Tissue Neck W/contr Sent. sv 11:24 Primitivo Rosario is Hospitalizing Provider. [facility] 13:00 No provider procedures requiring assistance completed. Patient admitted, IV remains in sv place. intact. Administered Medications: 11:29 Drug: Aspirin Chewable Tablet 324 mg Route: PO; sv 12:06 Follow up: Response: No adverse reaction sv Outcome: 11:24 Decision to Hospitalize by Provider. [facility] 12:45 Admitted to Tele accompanied by [facility], via stretcher, room 221, with chart. sv 12:45 Condition: stable 12:45 Instructed on the need for admit. 13:00 Patient left the ED. sv Signatures: Molly Mckeon RN RN sv Chao Baker PA PA jmm Corrections: (The following items were deleted from the chart) 09:28 09:27 BP 126 / 79; Pulse 70bpm; Resp 12bpm; Pulse Ox 99%; Temp 97.2F; Pain 0/10; sv sv
--- NOTE | 2020-06-16 11:25 | EDPHYS ---
Physician Documentation [facility] Name: Alejandro Dunbar Age: 55 yrs Sex: Male : 1965 Arrival Date: 06/16/2020 Time: 09:24 Bed 7 Private MD: ED Physician Lukasz Chacon HPI: 06/16 09:52 This 55 yrs old Male presents to ER via EMS with complaints of Chest Pain. [facility] 09:52 The patient or guardian reports chest pain that is located primarily in the substernal [facility] area. Onset: gradually, 1 hour(s) ago. The pain does not radiate. Associated signs and symptoms: Pertinent positives: palpitations. The chest pain is described as aching, sharp. Duration: The patient or guardian reports a single episode, that is now resolved. Modifying factors: The symptoms are alleviated by nothing. the symptoms are aggravated by nothing. Patient also complains of sore throat with difficulty speaking along with cough. Historical: - Allergies: 09:26 No Known Allergies; sv - PMHx: 09:26 Diabetes - NIDDM; Dialysis; High Cholesterol; Hypertension; Hypothyroidism; sv - Immunization history:: Adult Immunizations up to date. - Social history:: Smoking status: . ROS: 09:53 Constitutional: Negative for fever, chills, and weight loss. jmm 09:53 ENT: Positive for sore throat. 09:53 Cardiovascular: Positive for chest pain. 09:53 Respiratory: Positive for cough. 09:53 All other systems are negative. Exam: 09:53 Constitutional: This is a well developed, well nourished patient who is awake, alert, jmm and in no acute distress. Head/Face: atraumatic. Eyes: EOMI, no conjunctival erythema appreciated 09:53 Neck: Trachea midline, Supple Chest/axilla: Normal chest wall appearance and motion. Cardiovascular: Regular rate and rhythm. No edema appreciated Respiratory: Normal respirations, no respiratory distress appreciated Abdomen/GI: Non distended, soft Back: Normal ROM Skin: General appearance color normal MS/ Extremity: Moves all extremities, no obvious deformities appreciated, no edema noted to the lower extremities 09:53 ENT: Posterior pharynx: erythema, is not appreciated. 09:53 Neuro: Orientation: is normal, Mentation: is normal, Memory: is normal. 09:53 Psych: Behavior/mood is pleasant, cooperative. Vital Signs: 09:27 BP 126 / 79; Pulse 70; Resp 12; Temp 97.2; Pulse Ox 99% ; Weight 80 kg; Height 5 ft. 4 sv in. (162.56 cm); Pain 0/10; 10:35 BP 154 / 86; Pulse 65 MON; Resp 19; Pulse Ox 100% on R/A; sv 11:21 BP 146 / 82; Pulse 62; Resp 14; Pulse Ox 97% ; sv 12:30 BP 133 / 88; Pulse 65; Resp 20; Pulse Ox 100% on R/A; sv 09:27 Body Mass Index 30.27 (80.00 kg, 162.56 cm) sv 10:35 Sinus Rhythm sv MDM: 09:[address] [facility] 11:23 The patient was given aspirin in the Emergency Department. Data reviewed: vital signs, [facility] nurses notes, lab test result(s), EKG, radiologic studies, CT scan, plain films. ED course: I discussed the patient with Dr. Rosario whom accepted the patient for admission. . 06/16 09:28 Order name: Basic Metabolic Panel [facility] 06/16 09:28 Order name: CBC with Diff [facility] 06/16 09:28 Order name: LFT's [facility] 06/16 09:28 Order name: Magnesium [facility] 06/16 09:28 Order name: NT PRO-BNP [facility] 06/16 09:28 Order name: PT-INR [facility] 06/16 09:28 Order name: Troponin (emerg Dept Use Only) [facility] 06/16 09:48 Order name: COVID-19 : Document "Date of Symptom Onset" if Symptomatic. [facility] 06/16 09:48 Order name: Strep [facility] 06/16 09:48 Order name: TSH [facility] 06/16 09:49 Order name: Strep 06/16 09:49 Order name: Flu 06/16 09:49 Order name: Protime (+INR); Complete Time: 09:51 EDDE 06/16 09:28 Order name: XRAY Chest (1 view) [facility] 06/16 09:50 Order name: CBC with Automated Diff; Complete Time: 09:51 EDMS 06/16 09:50 Order name: CT Soft Tissue Neck W/contr [facility] 06/16 10:08 Order name: Group A Streptococcus Rapid Sc EDMS 06/16 10:10 Order name: CORONAVIRUS EDMS 06/16 10:10 Order name: Influenza Screen (A EDMS 06/16 10:23 Order name: Basic Metabolic Panel; Complete Time: 10:25 EDMS 06/16 10:23 Order name: Liver (Hepatic) Function; Complete Time: 10:25 EDMS 06/16 10:23 Order name: Troponin (Emerg Dept Use Only); Complete Time: 10:25 EDMS 06/16 10:23 Order name: NT PRO-BNP; Complete Time: 10:25 EDMS 06/16 10:23 Order name: Magnesium; Complete Time: 10:25 EDMS 06/16 10:27 Order name: Group A Streptococcus Rapid Sc; Complete Time: 10:27 EDMS 06/16 10:39 Order name: CT; Complete Time: 10:49 EDMS 06/16 10:53 Order name: COVID-19/FLU A+B; Complete Time: 11:09 EDMS 06/16 10:59 Order name: Thyroid Stimulating Hormone; Complete Time: 11:20 EDMS 06/16 11:12 Order name: T4 Free; Complete Time: 11:20 EDMS 06/16 09:28 Order name: EKG; Complete Time: 09:28 jmm 06/16 09:28 Order name: Cardiac monitoring; Complete Time: 09:29 m 06/16 09:28 Order name: EKG - Nurse/Tech; Complete Time: 09:30 m 06/16 09:28 Order name: IV Saline Lock; Complete Time: 09:30 m 06/16 09:28 Order name: Labs collected and sent; Complete Time: 09:30 m 06/16 09:28 Order name: O2 Per Protocol; Complete Time: 09:30 m 06/16 09:28 Order name: O2 Sat Monitoring; Complete Time: 09:30 m 06/16 10:40 Order name: RAD; Complete Time: 10:49 EDMS Administered Medications: 11:29 Drug: Aspirin Chewable Tablet 324 mg Route: PO; sv 12:06 Follow up: Response: No adverse reaction sv Disposition: 06/16/20 11:24 Hospitalization ordered by Primitivo Rosario for Observation. Preliminary diagnosis is Chest pain, unspecified. - Bed requested for Telemetry/MedSurg (observation). - Status is Observation. sv - Condition is Stable. - Problem is new. - Symptoms are unchanged. Addendum: 06/21/2020 19:18 Co-signature as Attending Physician, Lukasz Chacon MD I agree with the assessment and t w4 plan of care. Signatures: Dispatcher [employer] Molly Jang, RN RN sv Chao Baker, PA PA Lukasz Vicente MD MD tw4 Alison Mayo Corrections: (The following items were deleted from the chart) 06/16 12:33 11:24 Hospitalization Ordered by Primitivo Rosario for Observation. Preliminary diagnosis eb is Chest pain, unspecified. Bed requested for Telemetry/MedSurg (observation). Status is Observation. Condition is Stable. Problem is new. Symptoms are unchanged. sherman 13:00 12:33 06/16/2020 11:24 Hospitalization Ordered by Primitivo Rosario for Observation. sv Preliminary diagnosis is Chest pain, unspecified. Bed requested for Telemetry/MedSurg (observation). Status is Observation. Condition is Stable. Problem is new. Symptoms are unchanged. eb
[2020-06-16] MEDS ORDERED: ASPIRIN 81 MG CHEWABLE TABLET ONE (11:43)
--- NOTE | 2020-06-16 12:22 | P.HP ---
Certification for Inpatient Patient admitted to: Observation With expected LOS: <2 Midnights Practitioner: I am a practitioner with admitting privileges, knowledge of patient current condition, hospital course, and medical plan of care. Services: Services provided to patient in accordance with Admission requirements found in Title 42 Section 412.3 of the Code of Federal Regulations Patient History Date of Service: 06/16/20 Reason for admission: Chest pain History of Present Illness: 55-year-old gentleman with a history of end-stage renal disease on hemodialysis, diabetes mellitus type 2 presented to the emergency department with a complaint of chest pain of sudden onset, which occured during dialysis today. Patient reports the chest pain lasted about 1 hour. It was relieved by nitroglycerin. Patient is also complaining of sore throat and cough. He had no chest pain in the ED. Initial troponin is negative. Nasal swab for rapid COVID test is negative. Influenza screen is negative. Throat swab for rapid strep also negative. Chest x-ray is unremarkable, no infiltrate, EKG shows sinus rhythm flattened T-waves, no significant ischemic changes. Patient is placed under observation for ACS rule out. Allergies No Known Allergies Allergy (Verified 06/16/20 13:22) Home Medications: Aspirin Chewable [Aspirin Chewable*] 81 mg PO DAILY 08/06/18 Calcitrol [Rocaltrol*] 0.5 mcg PO DAILY 08/06/18 Lovastatin 20 mg PO BEDTIME 08/06/18 carvediloL [Coreg*] 6.25 mg PO BID 08/06/18 Calcium Carbonate [Tums Regular*] 1,000 mg PO AC #60 tab 08/16/18 Furosemide [Lasix*] 40 mg PO DAILY #30 tab 08/16/18 Levothyroxine [Synthroid*] 0.15 mg PO DAILYAC #30 tab 08/16/18 lisinopriL [Prinivil*] 20 mg PO DAILY #30 tab 08/16/18 - Past Medical/Surgical History -: hypertension -: hypothyroid -: dm2 -: high cholesteral - Family History Sister -: Diabetes - Social History Smoking Status: Never smoker Alcohol use: No CD- Drugs: No Caffeine use: Yes Review of Systems Other: Except as documented, all other systems reviewed and negative. Physical Examination - Physical Exam General: Alert, In no apparent distress, Oriented x3 HEENT: Atraumatic, Normocephalic, Mucous membr. moist/pink, EOMI, Sclerae nonicteric Neck: Supple, JVD not distended Respiratory: Clear to auscultation bilaterally, Normal air movement Cardiovascular: No edema, Regular rate/rhythm, Normal S1 S2 Capillary refill: <2 Seconds Gastrointestinal: Normal bowel sounds, Soft and benign, Non-distended, No tenderness Musculoskeletal: No swelling, No tenderness Integumentary: No rashes, No erythema Neurological: Normal speech, Normal strength at 5/5 x4 extr, Cranial nerves 3-12 intact - Studies Laboratory Data (last 24 hrs) 06/16/20 09:25: PT 10.7, INR 0.93 06/16/20 09:25: WBC 6.70, Hgb 11.3 L, Hct 33.5 L, Plt Count 289 06/16/20 09:25: Sodium 135 L, Potassium 3.4 L, BUN 23 H, Creatinine 5.40 H*, Glucose 119 H, Magnesium 2.1, Total Bilirubin 0.3, AST 25, ALT 19, Alkaline Phosphatase 71 Microbiology Data (last 24 hrs): 06/16/20 09:50 Throat Group A Streptococcus Rapid Screen - Final Assessment and Plan - Problems (Diagnosis) (1) Chest pain Current Visit: Yes Status: Acute (2) Upper respiratory infection Current Visit: Yes Status: Acute (3) DM type 2 (diabetes mellitus, type 2) Current Visit: Yes Status: Acute (4) ESRD (end stage renal disease) on dialysis Current Visit: No Status: Acute (5) Hypothyroidism Current Visit: Yes Status: Acute - Plan Place under observation. Trend troponin Further cardiac evaluation pending troponin result. Repeat COVID 19 test. Nephrology consult for hemodialysis. Monitor and treat blood pressure Insulin sliding scale for glucose management. Patient noted to be in hypothyroid state. Validate home medications and increase Synthroid dose. Recheck TSH in 6 weeks as an outpatient. - Advance Directives Does patient have a Living Will: No Does patient have a Durable POA for Healthcare: No
[2020-06-16] MEDS ORDERED: ONDANSETRON 4 MG/2 ML VIAL IV PRN (13:20)
[2020-06-16] MEDS ORDERED: ACETAMINOPHEN 500 MG TAB PO PRN (13:20)
[2020-06-16 13:48] VITALS: BMI 66.9
[2020-06-16] MEDS: INSULIN -REGULAR HUMAN 50 UNIT/0.5 ML ML SQ SCH ×2 (16:30→21:00)
[2020-06-16] MEDS: HEPARIN 5000 UNIT/ML 1 ML VIAL SQ SCH (17:00)
[2020-06-17] MEDS: HEPARIN 5000 UNIT/ML 1 ML VIAL SQ SCH ×2 (01:00→09:53)
[2020-06-17 05:54] LABS: Absolute Lymphocytes (CBC) 1.3 K/uL (0.7-4.9); Basophils % 1.8 % (0-1.3); Hematocrit 34.8 % (39.6-49.0); Lymphocytes % 21.6 % (15.3-44.8); MPV 7.4 fL (7.6-11.3); RBC Red Blood Cell Count 3.58 M/uL (4.33-5.43)
[2020-06-17 06:21] LABS: Potassium 4.1 mmol/L (3.5-5.1)
[2020-06-17] MEDS: INSULIN -REGULAR HUMAN 50 UNIT/0.5 ML ML SQ SCH ×2 (07:30→11:30)
[2020-06-17 10:15] VITALS: O2SAT 97
[2020-06-17 13:14] VITALS: BP 153/75; TEMP 97.5
--- NOTE | 2020-06-17 14:14 | P.DS ---
Admission Date: 06/16/20 Discharge Date: 06/17/20 Disposition: ROUTINE DISCHARGE Discharge Condition: FAIR Reason for Admission: Chest pain - Problems (1) Chest pain Current Visit: Yes Status: Acute (2) Upper respiratory infection Current Visit: Yes Status: Acute (3) DM type 2 (diabetes mellitus, type 2) Current Visit: Yes Status: Acute (4) ESRD (end stage renal disease) on dialysis Current Visit: No Status: Acute (5) Hypothyroidism Current Visit: Yes Status: Acute Brief History of Present Illness: 55-year-old gentleman with a history of end-stage renal disease on hemodialysis, diabetes mellitus type 2 presented to the emergency department with a complaint of chest pain of sudden onset, which occured during dialysis today. Patient reports the chest pain lasted about 1 hour. It was relieved by nitroglycerin. Patient is also complaining of sore throat and cough. He had no chest pain in the ED. Initial troponin is negative. Nasal swab for rapid COVID test is negative. Influenza screen is negative. Throat swab for rapid strep also negative. Chest x-ray is unremarkable, no infiltrate, EKG shows sinus rhythm flattened T-waves, no significant ischemic changes. Patient placed under observation for ACS rule out. Hospital Course: Patient placed under observation. Troponin trended all came back negative. Patient was asymptomatic during the hospital stay, had no complain. No significant events on engine monitor. ACS has been ruled out. Noted his TSH was markedly elevated indicating hyperthyroid state. Patient is on Synthroid 150 mcg daily. This is increased to 175 mcg daily. He is informed to follow with his PCP within 6 weeks for repeat TSH. Patient is referred to have a nuclear stress test done as an outpatient this week. He was experiencing upper respiratory symptoms. His rapid COVID test came back negative. Repeat conventional test is ordered. Result to be followed as an outpatient. Vital Signs/Physical Exam: Temp Pulse Resp BP Pulse Ox 97.5 F 70 18 153/75 H 96 06/17/20 12:00 06/17/20 12:00 06/17/20 12:00 06/17/20 12:00 06/17/20 12:00 General: Alert, In no apparent distress Neck: JVD not distended Respiratory: Clear to auscultation bilaterally Cardiovascular: No edema, Regular rate/rhythm, Normal S1 S2 Gastrointestinal: Soft and benign, Non-distended Musculoskeletal: No swelling Integumentary: No rashes Neurological: Other (No focal deficit.) Laboratory Data at Discharge: WBC 6.00 K/uL (4.3-10.9) 06/17/20 05:37 Hgb 11.5 g/dL (13.6-17.9) L 06/17/20 05:37 Hct 34.8 % (39.6-49.0) L 06/17/20 05:37 Plt Count 271 K/uL (152-406) 06/17/20 05:37 PT 10.7 SECONDS (9.5-12.5) 06/16/20 09:25 INR 0.93 06/16/20 09:25 Sodium 137 mmol/L (136-145) 06/17/20 05:37 Potassium 4.1 mmol/L (3.5-5.1) 06/17/20 05:37 BUN 35 mg/dL (7-18) H 06/17/20 05:37 Creatinine 8.32 mg/dL (0.55-1.3) H* D 06/17/20 05:37 Glucose 92 mg/dL (74-106) 06/17/20 05:37 Magnesium 2.1 mg/dL (1.8-2.4) 06/16/20 09:25 Total Bilirubin 0.3 mg/dL (0.2-1.0) 06/16/20 09:25 AST 25 U/L (15-37) 06/16/20 09:25 ALT 19 U/L (12-78) 06/16/20 09:25 Alkaline Phosphatase 71 U/L (45-117) 06/16/20 09:25 Troponin I < 0.02 ng/mL (0.0-0.045) 06/17/20 01:30 Home Medications: Aspirin Chewable [Aspirin Chewable*] 81 mg PO DAILY 08/06/18 Calcitrol [Rocaltrol*] 0.5 mcg PO DAILY 08/06/18 Lovastatin 20 mg PO BEDTIME 08/06/18 carvediloL [Coreg*] 6.25 mg PO BID 08/06/18 Calcium Carbonate [Tums Regular*] 1,000 mg PO AC #60 tab 08/16/18 Furosemide [Lasix*] 40 mg PO DAILY #30 tab 04/16/19 lisinopriL [Prinivil*] 20 mg PO DAILY #30 tab 08/16/18 Levothyroxine [Synthroid*] 175 mcg PO DAILYAC #30 tab 06/17/20 New Medications: Levothyroxine [Synthroid*] 175 mcg PO DAILYAC #30 tab Physician Discharge Instructions: Referral for Nuclear stress test to be done this week. Result to be reviewed by Dr. Roblero Diet: ADA Activity: Ad bret Followup: [facility]OTOOT [Primary Care Provider] - 1-2 Weeks Christopher Roblero MD [ACTIVE - CAN ADMIT] -
== END 2020-06-17 16:15 | disposition home or self-care (01) ==
LOC: ER 09:20 → ERHOLD 12:20 → 2ND 12:45
PROVIDERS: ADMIT Internal Medicine; ATTEND Internal Medicine
DX: R07.9 Chest pain, unspecified (principal); I12.0 Hypertensive chronic kidney disease with stage 5 chronic kidney disease or end stage renal disease; E11.22 Type 2 diabetes mellitus with diabetic chronic kidney disease; N18.6 End stage renal disease; Z99.2 Dependence on renal dialysis; J06.9 Acute upper respiratory infection, unspecified; E03.9 Hypothyroidism, unspecified; E78.00 Pure hypercholesterolemia, unspecified; Z20.822 Contact with and (suspected) exposure to COVID-19; Z79.82 Long term (current) use of aspirin; Z83.3 Family history of diabetes mellitus
CPT/HCPCS: 87070; 85025 ×2; 80048 ×2; 36415; 83735; 85610; 82947 ×5; 80076; 87081; 84443; 84484 ×3; 84439; 83880; 0240U; 70490; 71045; 94760 ×3; 99285; U0003; J1644 ×2; G0378

== ENCOUNTER 2020-06-19 11:44 | Emergency (ER) | payer OTHER ==
[2020-06-19 15:16] LABS: Protime INR 0.95
[2020-06-19 15:18] LABS: Absolute Lymphocytes (CBC) 1.1 K/uL (0.7-4.9); Basophils % 1.9 % (0-1.3); Hematocrit 34.9 % (39.6-49.0); MPV 7.6 fL (7.6-11.3)
[2020-06-19 15:35] LABS: ALT/SGPT 18 U/L (12-78); AST/SGOT 24 U/L (15-37); Albumin 4.3 g/dL (3.4-5.0); Alkaline Phosphatase 66 U/L (45-117); BUN Blood Urea Nitrogen 59 mg/dL (7-18); Bicarbonate 23 mmol/L (21-32); Bilirubin Direct < 0.1 mg/dL (0-0.2); Bilirubin Total 0.3 mg/dL (0.2-1.0); Glucose Level 137 mg/dL (74-106); Magnesium 2.4 mg/dL (1.8-2.4); NT PRO-BNP 1805 pg/mL (<125); Potassium 4.5 mmol/L (3.5-5.1); Protein, Total 8.7 g/dL (6.4-8.2); Sodium Level 141 mmol/L (136-145); Troponin (Emerg Dept Use Only) < 0.02 ng/mL (0.0-0.045)
--- NOTE | 2020-06-19 16:19 | EDPHYS ---
Physician Documentation [facility] Name: Alejandro Dunbar Age: 55 yrs Sex: Male : 1965 Arrival Date: 06/19/2020 Time: 11:50 Bed 2 Private MD: ED Physician Danis Wiley HPI: 06/19 16:06 This 55 yrs old Male presents to ER via Ambulatory with complaints of feeling ma2 sick and needs dialysis. 16:06 Onset: The symptoms/episode began/occurred gradually, 1 day(s) ago. Severity of ma2 symptoms: At their worst the symptoms were moderate in the emergency department the symptoms are unchanged. The patient has experienced similar episodes in the past. Patient has ESRD on scheduled HD, last HD was Wednesday. He missed HD on Wednesday. . states no chest pain cough or any other symptoms . Historical: - Allergies: 12:04 No Known Allergies; ss - PMHx: 12:04 Dialysis; High Cholesterol; Hypertension; Hypothyroidism; Diabetes - NIDDM; ss - PSHx: 12:04 None; ss - Immunization history:: Flu vaccine is up to date. - Social history:: Smoking status: Patient denies any tobacco usage or history of. Patient/guardian denies using alcohol, street drugs, The patient lives with family. - Family history:: not pertinent. ROS: 16:06 Constitutional: Negative for fever, chills, and weight loss. ma2 16:06 All other systems are negative. Exam: 16:06 Constitutional: This is a well developed, well nourished patient who is awake, alert, ma2 and in no acute distress. Head/Face: Normocephalic, atraumatic. Eyes: Pupils equal round and reactive to light, extra-ocular motions intact. Lids and lashes normal. Conjunctiva and sclera are non-icteric and not injected. Cornea within normal limits. Periorbital areas with no swelling, redness, or edema. ENT: Nares patent. No nasal discharge, no septal abnormalities noted. Tympanic membranes are normal and external auditory canals are clear. Oropharynx with no redness, swelling, or masses, exudates, or evidence of obstruction, uvula midline. Mucous membranes moist. Neck: Trachea midline, no thyromegaly or masses palpated, and no cervical lymphadenopathy. Supple, full range of motion without nuchal rigidity, or vertebral point tenderness. No Meningismus. Chest/axilla: Normal chest wall appearance and motion. Nontender with no deformity. No lesions are appreciated. Cardiovascular: Regular rate and rhythm with a normal S1 and S2. No gallops, murmurs, or rubs. Normal PMI, no JVD. No pulse deficits. Respiratory: Lungs have equal breath sounds bilaterally, clear to auscultation and percussion. No rales, rhonchi or wheezes noted. No increased work of breathing, no retractions or nasal flaring. Abdomen/GI: Soft, non-tender, with normal bowel sounds. No distension or tympany. No guarding or rebound. No evidence of tenderness throughout. Back: No spinal tenderness. No costovertebral tenderness. Full range of motion. Skin: Warm, dry with normal turgor. Normal color with no rashes, no lesions, and no evidence of cellulitis. MS/ Extremity: Pulses equal, no cyanosis. Neurovascular intact. Full, normal range of motion. Neuro: Awake and alert, GCS 15, oriented to person, place, time, and situation. Cranial nerves II-XII grossly intact. Motor strength 5/5 in all extremities. Sensory grossly intact. Cerebellar exam normal. Normal gait. Vital Signs: 11:59 BP 180 / 81; Pulse 76; Resp 17; Temp 97.4; Pulse Ox 100% ; Weight 80.29 kg; Height 5 ss ft. 4 in. (162.56 cm); Pain 0/10; 11:59 Body Mass Index 30.38 (80.29 kg, 162.56 cm) ss MDM: 14:43 Patient medically screened. ma2 16:06 Differential Diagnosis uremia, missed HD vs dehydration vs hyperkalemia vs volume ma2 overload . 16:16 Data reviewed: vital signs, nurses notes. Counseling: I had a detailed discussion with ma2 the patient and/or guardian regarding: the historical points, exam findings, and any diagnostic results supporting the discharge/admit diagnosis, the presence of at least one elevated blood pressure reading (>120/80) during this emergency department visit, the need for outpatient follow up. Response to treatment: the patient's symptoms have markedly improved after treatment. ED course: discussed with dr. zuniga, he recommends that he does need emergent HD, and advise that he goes to HD center on Wednesday as scheduled . 06/19 14:39 Order name: Basic Metabolic Panel [facility] 06/19 14:39 Order name: CBC with Diff [facility] 06/19 14:39 Order name: LFT's [facility] 06/19 14:39 Order name: Magnesium [facility] 06/19 14:39 Order name: NT PRO-BNP; Complete Time: 15:53 nh2 06/19 14:39 Order name: PT-INR; Complete Time: 15:53 nh2 06/19 14:39 Order name: Troponin (emerg Dept Use Only); Complete Time: 15:53 nh2 06/19 14:39 Order name: EKG; Complete Time: 14:40 nh2 06/19 14:39 Order name: Cardiac monitoring; Complete Time: 15:18 ma2 06/19 14:40 Order name: Basic Metabolic Panel; Complete Time: 15:53 EDMS 06/19 14:40 Order name: CBC with Automated Diff; Complete Time: 15:53 EDMS 06/19 14:40 Order name: Liver (Hepatic) Function; Complete Time: 15:53 EDMS 06/19 14:40 Order name: Magnesium; Complete Time: 15:53 EDMS 06/19 14:56 Order name: Chest Single View XRAY [facility] 06/19 14:39 Order name: EKG - Nurse/Tech [facility] 06/19 14:39 Order name: IV Saline Lock; Complete Time: 15:18 ma2 06/19 14:39 Order name: Labs collected and sent; Complete Time: 15:18 nh2 06/19 14:39 Order name: O2 Per Protocol; Complete Time: 15:18 nh2 06/19 14:39 Order name: O2 Sat Monitoring; Complete Time: 15:18 ma2 Administered Medications: No medications were administered Disposition: 06/19/20 16:18 Discharged to Home. Impression: End stage renal disease. - Condition is Stable. - Discharge Instructions: End-Stage Kidney Disease, Chronic Kidney Disease, Adult, [id number]. - Medication Reconciliation Form, Thank You Letter, Antibiotic Education, Prescription Opioid Use form. - Follow up: Private Physician; When: Tomorrow; Reason: Continuance of care. Signatures: Dispatcher [facility] Isabel Christina RN RN Ambar Vaca RN RN hb Danis Wiley MD MD ma2 Corrections: (The following items were deleted from the chart) 17:03 16:18 06/19/2020 16:18 Discharged to Home. Impression: End stage renal disease. hb Condition is Stable. Forms are Medication Reconciliation Form, Thank You Letter, Antibiotic Education, Prescription Opioid Use. Follow up: Private Physician; When: Tomorrow; Reason: Continuance of care. ma2
--- NOTE | 2020-06-19 16:19 | ER ---
Nurse's Notes [facility] Name: Alejandro Dunbar Age: 55 yrs Sex: Male : 1965 Arrival Date: 06/19/2020 Time: 11:50 Bed 2 Private MD: Diagnosis: End stage renal disease Presentation: 06/19 11:59 Chief complaint: Patient states: Dialysis M/W/F. Last dialysis Wednesday at [facility]. States ss the dialysis center is closed due to no electricity. Feels dizzy, no pain. Dialysis access L arm. Coronavirus screen: Client denies travel out of the [place] in the last 14 days. At this time, the client does not indicate any symptoms associated with coronavirus-19. Ebola Screen: Patient denies travel to an Ebola-affected area in the 21 days before illness onset. Initial Sepsis Screen: Does the patient meet any 2 criteria? No. Patient's initial sepsis screen is negative. Does the patient have a suspected source of infection? No. Patient's initial sepsis screen is negative. Risk Assessment: Do you want to hurt yourself or someone else? Patient reports no desire to harm self or others. Onset of symptoms was June 19, 2020. 11:59 Method Of Arrival: Ambulatory ss 11:59 Acuity: KERRI 3 ss Historical: - Allergies: 12:04 No Known Allergies; ss - PMHx: 12:04 Dialysis; High Cholesterol; Hypertension; Hypothyroidism; Diabetes - NIDDM; ss - PSHx: 12:04 None; ss - Immunization history:: Flu vaccine is up to date. - Social history:: Smoking status: Patient denies any tobacco usage or history of. Patient/guardian denies using alcohol, street drugs, The patient lives with family. - Family history:: not pertinent. Screenin:09 Abuse screen: Denies threats or abuse. Denies injuries from another. Nutritional hb screening: No deficits noted. Tuberculosis screening: No symptoms or risk factors identified. Fall Risk None identified. Assessment: 15:09 General: Appears in no apparent distress. Behavior is calm, cooperative. Pain: Denies hb pain. Neuro: Level of Consciousness is awake, alert, obeys commands, Oriented to person, place, time, situation. Cardiovascular: Capillary refill < 3 seconds Patient's skin is warm and dry. Respiratory: Respiratory effort is even, unlabored, Respiratory pattern is regular, symmetrical. GI: No signs and/or symptoms were reported involving the gastrointestinal system. : No signs and/or symptoms were reported regarding the genitourinary system. EENT: No signs and/or symptoms were reported regarding the EENT system. Derm: Skin is pink, warm \T\ dry. Musculoskeletal: No signs and/or symptoms reported regarding the musculoskeletal system. Vital Signs: 11:59 BP 180 / 81; Pulse 76; Resp 17; Temp 97.4; Pulse Ox 100% ; Weight 80.29 kg; Height 5 ss ft. 4 in. (162.56 cm); Pain 0/10; 11:59 Body Mass Index 30.38 (80.29 kg, 162.56 cm) ED Course: 11:50 Patient arrived in ED. mr 11:59 Arm band placed on. ss 12:03 Triage completed. ss 14:38 Danis Wiley MD is Attending Physician. ma2 15:04 Inserted saline lock: 20 gauge in right antecubital area, using aseptic technique. hb Blood collected. 15:09 Patient has correct armband on for positive identification. Call light in reach. Side hb rails up X 1. 15:17 Chest Single View XRAY In Process Unspecified. EDMS 15:18 Ambar Vaca, RN is Primary Nurse. hb 15:19 Basic Metabolic Panel Sent. sv 15:19 CBC with Diff Sent. sv 15:19 LFT's Sent. sv 15:19 Magnesium Sent. sv Administered Medications: No medications were administered Outcome: 16:18 Discharge ordered by . ma2 17:03 Patient left the ED. hb Signatures: Dispatcher [employer] EDMS Molly Mckeon, RN SANJAY Piper SifuentesIsabel RN RN Ambar Vaca, RN SANJAY Danis Wiley MD MD alKumar
--- NOTE | 2020-06-19 16:37 | RAD REPORT ---
EXAM DESCRIPTION: RAD - Chest Single View - 06/19/2020 3:17 pm CLINICAL HISTORY: CONGESTION COMPARISON: Portable June 16 TECHNIQUE: AP portable chest image was obtained 06/19/2020 3:17 pm . FINDINGS: Lung volumes are low. No peripheral mass or consolidation. No significant pulmonary edema findings seen. Heart size is normal range for portable imaging. Pericardial fat pads are present. Hea rt and vascular structures not significantly different from comparison. No measurable pleural effusio n and no pneumothorax. No acute bony abnormality seen. No acute aortic findings suspected. IMPRESSION: No acute cardiopulmonary process. No findings suspicious for current or prior TB infection. No significant change from comparison.
[2020-06-19 17:34] VITALS: BP 180/81; TEMP 97.4; O2SAT 100
--- NOTE | 2020-06-19 20:19 | CON ---
Date of Consultation: 06/19/2020 Consulting Physician: ER. Reason For Consultation: Elevated BUN and creatinine. History Of Present Illness: This is a 55-year-old gentleman well known to me from dialysis with significant past medical history of end-stage renal disease, on hemodialysis, Wednesday, Wednesday, Wednesday, secondary hyperparathyroidism, diabetes, hyperlipidemia, hypothyroidism. The patient came to the hospital that he missed his dialysis. The patient denied any chest pain. Has some shortness of breath. Past Medical History: 1. Hypertension. 2. Diabetes. 3. Hyperlipidemia. 4. Hypothyroidism. 5. Secondary hyperpara. 6. End-stage renal disease. Last dialysis was on Wednesday. Allergies: NO KNOWN DRUG ALLERGIES. Past Surgical History: Include PermCath placement. Family History: Positive for diabetes. Social History: Denies smoking. Denies drinking. Denies drugs abuse. Review of Systems: Head and Neck: No red eye. No ear pain. GI: No nausea, no vomiting. : No polyuria. No dysuria. No hematuria. INFECTIOUS DISEASES PHYSICIAN: Not applicable. Respiratory: Has shortness of breath. Cardiovascular: No chest pain. Endocrine: No polydipsia. Skin: No rash. Neuro: Has neuropathy. Musculoskeletal: No joint pain. Physical Examination: Vital Signs: When I saw the patient, blood pressure of 153/75, pulse of 70. Chest: Faint rales in the base. Heart: S1, S2. Regular. Systolic murmur. Abdomen: Soft, nontender. Extremities: No edema. Neuro: Alert. No focality. Laboratory Data: H and H 11.6/34.9. Sodium 144, potassium 4.5, bicarb 23, BUN 59, creatinine 12.4, calcium 8.7. Assessment And Plan: 1. End-stage renal disease, slight over volume. No respiratory distress. We will arrange for the patient to have dialysis as outpatient. 2. Secondary hyperpara. Resume his medication. 3. Hypertension, controlled, optimal, continue current medication. 4. Over volume. The patient is still on good urine output. We will diurese the patient. 5. Acidosis secondary to renal failure. We will correct it with dialysis. 6. Diabetes, as by primary. The patient cleared from the renal standpoint for discharge planning. Time spent discussing with the patient, examining the patient, exam [id number], placing order, discussing with staff and other consulting include including Cardiology and Primary 75 minutes. JESUS Voice ID: [id number] Report ID: [id number] MTDD
== END 2020-06-19 17:03 | disposition home or self-care (01) ==
LOC: ER 11:44
DX: N18.6 End stage renal disease (principal); Z99.2 Dependence on renal dialysis
CPT/HCPCS: 36415; 71045; 80048; 80076; 83735; 83880; 84484; 85025; 85610; 99283

== ENCOUNTER 2020-06-24 06:23 | Inpatient (IN) | payer OTHER ==
--- OUTSIDE RECORDS SUMMARY | 2020-06-24 06:26 | XMS REPORT | Clinical Summary ---
:1965 Author Organization [facility] Address [address] [place] [id number] Care Team Providers Name Role Phone Asked, [...] ; Surgeon: Zia Huang MD; L ocation: [facility]; Service: Vascula r; Laterality: Left; [...] Due Date Last Done Comments COVID-19 VACCINE (1 of 2) 1981 HEPATITIS C SCREENING 1983 COLONOSCOPY SCREENING 2015 SHINGLES VACCINES (#1) 2015 INFLUENZA VACCINE 12/02/2019 Results Not on fileafter 06/24/2019 Insurance Payer Benefit Plan / Subscriber ID Effective Dates Phone Addre ss Type Group MEDICARE MEDICARE PART A [id number] 2018-Present [place], [place] Medicare AND B MEDICAID MEDICAID [id number] 2019-Present Med icaid Advance Directives For more information, please contact: [phone] Type Date Recorded Patient Manager Psychiatry Explanati on Advance Directives, Living Will 01/05/2019 7:32 AM and Medical Power of Fire Management Specialist
--- OUTSIDE RECORDS SUMMARY | 2020-06-24 06:27 | XMS REPORT | Clinical Summary ---
:1965 Author Organization [facility] Address [address] [place] [address] Care Team Providers Name Role Phone Pcp, [...] evaluation for ESRD (end stage renal di sease) 12/14/2019 ESRD (end stage renal disease) on [...] Y, RN 01/04/2020 Documentation Transplant Faviola Scales 01/04/2020 Telephone Transplant Shantel Ko Follow-up Y, RN 12/14/2019 Surgery Sammy Blanco, R & L CATH / CORONARY ANGIOS / PCI 12/14/2019 Hospital Encounter Sammy Blanco Hematom a of groin, initial encounter; - Hyperlipidemia, unspecified hyperlipidemia type; 12/16/2019 Essential hyper tension; Coronary artery disease involving [place]western [place] coronary artery of [place]western shoshone heart without angina pectoris; ESRD (end stage [...] Transplant Dede Meyer 11/13/2019 Telephone Transplant Dede eMyer Appointment ( Patient called to lam jones [...] (HCC); Essential hyper tension 08/09/2019 Documentation Transplant Manisha Powers 08/03/2019 Orders Only Transplant ProviderElaine MD 07/13/2019 [...] dialysis, without long-term current use of insulin ([facility]); MD Chris Hypertensive re nal disease; Pre-transplant evaluation for chronic kidney disease 07/13/2019 Hospital Encounter Cardiology Naga, ESRD (end stage renal disease) on dialysis (HCC); Bhamidipati Diabetes mellit us due to underlying condition with chronic kidney disease on chronic dialysis, without long-term current use of insulin ([facility]); MD Chris Hypertensive re nal disease; Pre-transplant evaluation for chronic kidney disease 07/13/2019 Orders Only Lab Naga, ESRD (end stage renal disease) on dialysis (HCC); Bhamidipati Diabetes mellit us due to underlying condition with chronic kidney disease on chronic dialysis, without long-term current use of insulin ([facility]); MD Chris Hypertensive re nal disease; Pre-transplant evaluation for chronic kidney disease 07/12/2019 Telephone Transplant Scales Faviola Flory Appointment (Called pt and asked him p rotocol questions mode santamaria the COVID19, pt sta madi he is feeling well an d has not travelled outsi de the country in the past month. He will attend his appt tomorr ow. ) 07/12/2019 Telephone Transplant Heller, Appointment (Un able to Judy contact Mr.Lope [...] if she fin ds his new number) after 06/24/2019 Family History Medical History Relation Name Comments [...] DIABETIC FOOT EXAM 1975 URINE MICROALBUMIN 1975 HEPATITIS B VACCINE (1 of 3 - Risk 1984 Recombivax 3-dose series) PNEUMOCOCCAL VACCINE 0-64 YRS (2 of 3 03/07/2019 03/07/2018 - PCV13) MEDICARE ANNUAL WELLNESS (YEAR 2 or 11/02/2019 FIRST YEAR if no IPPE) INFLUENZA VACCINE (#1) 2020 HEMOGLOBIN A1C 01/13/2020 07/13/2019 DEPRESSION SCREENING (12+) 05/03/2020 LIPID PANEL 07/12/2022 07/13/2019, 01/09/2019, 03/04/2018 Procedures Procedure Name Priority Date/Time Associated Comments [...] are i n the results section. SARS-COV2/RT-PCR ([facility] STAT 12/14/2019 8:40 AM Pre-op test ing [...] 400 ms QTC Calculation(Bazett) 440 ms P Beacon 59 degrees R Beacon 75 degrees T Beacon 122 degrees Normal sinus rhythm Nonspecific T [...] ESRD (end stage renal disease) on dialysis ([facility]) Type 2 diabetes mellitus with chronic kidney disease on chronic dialysis, without long-term current use of insulin ( [facility]) Essential hypertension US RETROPERITONEAL Routine 08/03/2019 COMPLETE [...] renal disease) on procedure are in dialysis ([facility]) the results Diabetes mellitus section. due to underlying condition with chronic kidney disease on chronic dialysis, without long-term current use of insulin ( [facility]) Hypertensive renal disease Pre-transplant evaluation for chronic kidney disease 2D ECHO W/ DOPPLER Routine 07/13/2019 8:02 ESRD (end stage Re sults for this (CW/PW/COLOR) AM CDT renal disease) on procedure are in dialysis ([facility]) the results Diabetes mellitus section. due to underlying condition with chronic kidney disease on chronic dialysis, without long-term current use of insulin ( [facility]) Hypertensive renal disease Pre-transplant evaluation for chronic kidney disease ECG 12-LEAD Routine 07/13/2019 7:43 ESRD (end stage Results for this AM CDT renal disease) on procedure are in dialysis ([facility]) the results Diabetes mellitus section. due to underlying condition with chronic kidney disease on chronic dialysis, without long-term current use of insulin ( [facility]) Hypertensive renal disease Pre-transplant evaluation for chronic kidney disease TYPE AND SCREEN, Routine 07/13/2019 7:24 ESRD (end stage Resu lts for this AUTOMATED AM CDT renal disease) on procedure are in dialysis ([facility]) the results Diabetes mellitus section. due to underlying condition with chronic kidney disease on chronic dialysis, without long-term current use of insulin ( [facility]) Hypertensive renal disease Pre-transplant evaluation for chronic kidney disease PSA Routine 07/13/2019 7:24 ESRD (end stage Results for this AM CDT renal disease) on procedure are in dialysis ([facility]) the results Diabetes mellitus section. due to underlying condition with chronic kidney disease on chronic dialysis, without long-term current use of insulin ( [facility]) Hypertensive renal disease Pre-transplant evaluation for chronic kidney disease HEMOGLOBIN A1C Routine 07/13/2019 7:24 ESRD (end stage Result s for this AM CDT renal disease) on procedure are in dialysis ([facility]) the results Diabetes mellitus section. due to underlying condition with chronic kidney disease on chronic dialysis, without long-term current use of insulin ( [facility]) Hypertensive renal disease Pre-transplant evaluation for chronic kidney disease LIPID PANEL Routine 07/13/2019 7:24 ESRD (end stage Results for this AM CDT renal disease) on procedure are in dialysis ([facility]) the results Diabetes mellitus section. due to underlying condition with chronic kidney disease on chronic dialysis, without long-term current use of insulin ( [facility]) Hypertensive renal disease Pre-transplant evaluation for chronic kidney disease after 06/24/2019 Results VASCULAR DIAGRAM -SCAN (12/21/2019 12:53 PM [...] Celestine Luu III, MD 0 7:15 PM [facility] Nephrology Service 12/16/2019 I have personally seen and examined Monica Dunbar on hemodialysis Indication :ESRD Prescription: F160, 3-4 hrs, 2.0K, 2.5 C a, UF2-3 L as cathi Reason for exam: BP fluctuation & adjust dry weight Tolerating dialysis ok Celestine Luu III, MD 12/16/2019 Manual Differential (12/16/2019 9:20 AM CDT) Pathologist Sig nature % Neutros (manual) 82 % [facility] % Lymphs (manual) 8 % [facility] % Monos (manual) 8 % [facility] % Eos (manual) 1 % [facility] % Baso (manual) 1 % [facility] Total Counted 100 [facility] WBC Morphology Normal [facility] Platelet Morphology Normal [facility] RBC Morphology Normal [facility] Specimen Blood Performing Organization Address [facility]/Zipcode Phone Number [facility] [address] [place] [address] [place] Hepatitis B surface antigen (12/16/2019 8:36 AM CDT) Pathologist Sig nature HBsAg Screen Nonreactive Nonreactive [facility] Specimen Blood - Arterial line (physical object) Narrative Performed At Specimen is considered negative for HBsAg. [facility] Performing Organization Address City/[facility]/Zipcode Phone Number [facility] [address] [place] [address] [place] CBC with platelet count + manual diff (12/16/2019 4:16 AM CDT) Pathologist Sig nature WBC 9.0 3.5 - 10.5 K/L [facility] RBC 3.37 (L) 4.63 - 6.08 M/L [facility] Hemoglobin 10.6 (L) 13.7 - 17.5 GM/DL [facility] Hematocrit 31.7 (L) 40.1 - 51.0 % [facility] MCV 94.1 (H) 79.0 - 92.2 fL [facility] MCH 31.5 25.7 - 32.2 pg [facility] MCHC 33.4 32.3 - 36.5 GM/DL [facility] RDW 13.9 11.6 - 14.4 % [facility] Platelets 213 150 - 450 K/CU MM [facility] MPV 10.0 9.4 - 12.4 fL [facility] nRBC 0 0 - 0 /100 WBC [facility] Specimen Blood - Venous line (physical object) Performing Organization Address City/[facility]/Zipcode Phone Number [address] [address] CENTER Manual Differential (12/16/2019 4:16 AM CDT) Pathologist Sig nature % Neutros 71 % [facility] % Lymphs 17 % [facility] % Monos 7 % [facility] % Eos 2 % [facility] % Bands 3 0 - 10 % [facility] # Neutros 6.39 (H) 1.78 - 5.38 K/ul [facility] # Lymphs 1.53 1.32 - 3.57 K/ul [facility] # Monos 0.63 0.30 - 0.82 K/uL [facility] # Eos 0.18 0.04 - 0.54 K/uL [facility] # Bands 0.27 0.00 - 0.80 K/uL [facility] Total Counted 100 [facility] WBC Morphology Normal [facility] Platelet Morphology Normal [facility] Anisocytosis 1+ few [facility] Macrocytes 1+ few [facility] Poikilocytes 1+ few [facility] Specimen Blood - Venous line (physical object) Performing Organization Address City/State/Zipcode Phone Number [facility] [address] [place] [address] CENTER Phosphorus (12/16/2019 4:16 AM CDT)Only the most recent of2 resultswithin the time period is included. Pathologist Sig nature Phosphorus 9.2 (HH) 2.3 - 4.7 mg/dL [facility] Specimen Blood - Venous line (physical object) Narrative Performed At Outdoor Education Teacher ID - RA [facility] Performing Organization Address [facility] Phone Number [place] [id number] [place] [address] [place] Basic Metabolic Panel (12/16/2019 4:16 AM CDT)Only the most recent of3 results within the time period is included. Sodium 135 (L) 136 - 145 meq/L [facility] Potassium 4.6 3.5 - 5.1 meq/L [facility] Chloride 98 98 - 107 meq/L [facility] CO2 18 (L) 22 - 29 meq/L [facility] BUN 71 (H) 7 - 21 mg/dL [facility] Creatinine 12.77 (H) 0.57 - 1.25 [facility] mg/dL [facility] Glucose 113 (H) 70 - 105 mg/dL [facility] Calcium 9.4 8.4 - 10.2 [facility] mg/dL [facility] EGFR 4Comment: ESTIMATED mL/min/1.73 sq [facility] GFR IS NOT [facility] ACCURATE [place] CREATININE CLEARANCE IN PREDICTING GLOMERULAR FILTRATION RATE. ESTIMATED GFR IS NOT APPLICABLE FOR DIALYSIS PATIENTS. Specimen Blood - Venous line (physical object) Narrative Performed At Outdoor Education Teacher ID - RA [facility] Performing Organization Address [facility] Centercode Phone Number [facility] [address] [place] [address] [place] CBC with platelet count + automated diff (12/15/2019 2:32 AM CDT) Pathologist Sig nature WBC 9.0 3.5 - 10.5 [facility] KL [facility] RBC 3.66 (L) 4.63 - 6.08 [facility] M/L [facility] Hemoglobin 11.5 (L) 13.7 - 17.5 [facility] GM/DL [facility] Hematocrit 35.1 (L) 40.1 - 51.0 % [facility] MCV 95.9 (H) 79.0 - 92.2 fL [facility] MCH 31.4 25.7 - 32.2 pg [facility] MCHC 32.8 32.3 - 36.5 [facility] RDW 14.0 11.6 - 14.4 % [facility] Platelets 225 150 - 450 K/CU [facility] MPV 9.9 9.4 - 12.4 fL [facility] nRBC 0 0 - 0 /100 WBC [facility] % Neutros 72 % [facility] % Lymphs 19 % [facility] % Monos 7 % [facility] % Eos 2 % [facility] % Baso 1 % [facility] # Neutros 6.46 (H) 1.78 - 5.38 [facility] # Lymphs 1.67 1.32 - 3.57 [facility] # Monos 0.60 0.30 - 0.82 [facility] # Eos 0.14 0.04 - 0.54 [facility] # Baso 0.11 (H) 0.01 - 0.08 [facility] Immature 0 0 - 1 % [facility] Specimen Blood - Entire right upper arm (body str ucture) Performing Organization Address City/State/Zipcode Phone Number [facility] [address] [place] [address] CENTER Arterial Doppler Leg, Right (12/15/2019 2:25 AM CDT) Pathologist Sig nature Ejection Fraction [facility] Specimen Impressions Performed At [facility] Impression [facility] HEARTCursa.me [facility] 1. There is no pseudoaneurysm visualized . [...] Performed At PV LAB - Pseudoaneurysm Survey [facility] Demographics Patient Name VIKA DUNBAR, Date of Study 12/15/2019 ALEJANDRO WALDEN Age 54 Visit Number [id number] Gender Male Accession Number [id number] Date of 1965 Referring Bella Christianson MD Room Number 606 Physician Drywall Taper Kylah Escoto RVT Interpreting Physician KARO Mann Procedure Type of [...] 12/15/2019 ALEJANDRO WALDEN Age 54 Visit Number [id number] Gender Male Accession Number [id number] Date of 1965 Referring Bella Christianson MD Room Number 606 Physician Drywall Taper Kylah Escoto T Interpreting Physician KARO Mann [...] are measured in cm Performing Organization Address City/State/[facility] Centercode Phone Number [facility] CPACS Prothrombin time/INR (12/14/2019 9:24 AM CDT) Pathologist Sig nature Protime 15.0 (H) 11.9 - 14.2 seconds [facility] INR 1.21 <=5.90 [facility] Specimen Blood Narrative Performed At Effective 09/28/2018: PT Reference Range [facility] Change New: 11.9-14.2 Previous: 11.7-14.7 RECOMMENDED COUMADIN/WARFARIN INR THERAPY RANGES STANDARD DOSE: 2.0-3.0 Includes: PROPHYLAXIS for venous thrombosis, systemic embolization; TREATMENT for venous thrombosis and/or pulmonary embolus. HIGH RISK: Target INR is 2.5-3.5 for patients wiht mechanical heart valves. Performing Organization Address City/[facility] Centercode Phone Number [facility] [address] [place] [address] CENTER CBC (Hemogram only) (12/14/2019 9:24 AM CDT) Pathologist Sig nature WBC 6.8 3.5 - 10.5 K/L [facility] RBC 4.26 (L) 4.63 - 6.08 M/L [facility] Hemoglobin 13.4 (L) 13.7 - 17.5 GM/DL [facility] Hematocrit 40.3 40.1 - 51.0 % [facility] MCV 94.6 (H) 79.0 - 92.2 fL [facility] MCH 31.5 25.7 - 32.2 pg [facility] MCHC 33.3 32.3 - 36.5 GM/DL [facility] RDW 14.1 11.6 - 14.4 % [facility] Platelets 243 150 - 450 K/CU MM [facility] MPV 9.3 (L) 9.4 - 12.4 fL [facility] nRBC 0 0 - 0 /100 WBC [facility] Specimen Blood Performing Organization Address City/State/Zipcode Phone Number [facility] [address] [place] [address] CENTER SARS-CoV2/RT-PCR ([facility] & Ref Labs) (12/14/2019 8:40 AM CDT) SARS-COV2/RT-PCR Negative Not Detected, [facility] Negative, See [facility] external report CENTER for linked test [facility]COV-2 [facility] PERFORM[facility] Specimen Other - Nasopharyngeal wall structure (b ganga structure) Narrative Performed At Negative results do not preclude SARS-CoV-2 [facility] infection and should not be used as [...] the Act. Fact Sheet for Healthcare Providers: https://www.[employer]/Documents/Xpert%20Xpre ss%20SARS%20CoV-2/Fact%20Sheets/3023802%20SAR S-COV-2%20HEALTHCARE%20PROVIDERS%20FACT%20SHEE T.pdf Fact Sheet for Healthcare Patients: https://www.[employer]/Documents/Xpert%20Xpre ss%20SARS%20CoV-2/Fact%20Sheets/302-3801%20SAR S-COV-2%20PATIENT%20FACT%20SHEET.pdf Performing Laboratory: [address] [address] Performing Organization Address City/[facility] Center[facility] Phone Number [address] [address] CENTER ECG 12 lead (12/14/2019 8:07 AM CDT)Only the most recent of2 resultswithin the time period is included. Specimen Narrative Performed At Ventricular Rate 73 BPM GE MUSE Atrial Rate 73 BPM P-R Interval 184 ms QRS Duration 100 ms Q-T Interval 400 ms QTC Calculation(Bazett) 440 ms P Beacon 59 degrees R Beacon 75 degrees T Beacon 122 degrees Normal sinus rhythm Nonspecific T wave abnormality Abnormal ECG When compared with ECG of 13-JUL-2019 07 :43, No significant change was found Confirmed by MD Harding Roberto ([id number]) on 12/13 2:18:32 PM Procedure Note Interface, External Ris In - 12/14/2019 2:18 PM CDT Ventricular Rate 73 BPM Atrial Rate 73 BPM P-R Interval 184 ms QRS Duration 100 ms Q-T Interval 400 ms QTC Calculation(Bazett) 440 ms P Beacon 59 degrees R Beacon 75 degrees T Beacon 122 degrees Normal sinus rhythm Nonspecific T wave abnormality Abnormal ECG When compared with ECG of 13-JUL-2019 07 :43, No significant change was found Confirmed by MD Harding Roberto ([id number]) on 12/14/2019 2:18:32 PM Performing Organization Address City/[facility] Centercode Phone Number [employer] Urine culture (11/14/2019 12:16 PM CDT) Pathologist Sig nature Result 40-49,000 col/mL [facility] Enterococcus faecalis [facility] (A) Specimen Urine Narrative Performed At <10,000 col/mL skin maria a [facility] Organism Antibiotic Method Susceptibility Enterococcus faecalis Ampicillin <=2: Susce ptible Enterococcus faecalis Linezolid 2: Suscept ible Enterococcus faecalis Nitrofurantoin <=16: Susc eptible Enterococcus faecalis Tetracycline >=16: Resi stant Enterococcus faecalis Vancomycin 2: Suscept ible Performing Organization Address City/State/Zipcode Phone Number [facility] [address] [place] [address] CENTER Ultrasound retroperitoneal complete (08/03/2019) Narrative Performed At This result has an attachment that is no t available. TRANSFUSION SERVICE REPORT - SCAN (07/14/2019 6:06 PM CDT) Narrative Performed At This result [...] Performed At Protocol Name DOBUT TM-1 GE [email or web address] Time In Exercise Phase 00:15:04 Max. Systolic [...] No Complications. Confirmed by MD SOW RAYMOND ([id number]) on 0 1:38:26 PM Procedure Note Interface, [...] PM Performing Organization Address City/State/Zipcode Phone Number [employer] Stress Echo With Tracing (07/13/2019 8:51 AM CDT) Pathologist Sig nature Ejection Fraction Est EF of >70% [facility] Specimen Narrative Performed At Stress Echocardiography Report [facility] Demographics Patient Name VIKA DUNBAR, Date of Study 07/13/2019 ALEJANDRO WALDEN Gender Male Visit Number [id number] Race Room Number OP Number Date of 1965 Referring Naga sow Physician Chris Age 54 year(s) Drywall Taper Maddi seymour, RDCS Interpreting Primitivo roberts Physician [...] ALEJANDRO WALDEN Gen alfreda Male Visit Number [id number] Rac e Alba m Number OP Number Date of 1965 Ref erring Naga Patience Perez Age 54 year(s) Son lyn Roberts, [facility] Int erpreting Joseph Montalvo MD Fellow DONTE [...] St ress Test. Signature Performing Organization Address City/State/[facility] Center[facility] Phone Number [facility] 2[facility] Echo W/Doppler(CW/PW/Color) (07/13/2019 8:02 AM CDT) Pathologist Sig nature Ejection Fraction [facility] Specimen Narrative Performed At Transthoracic Echocardiography Report (T TE) [facility] Demographics Patient Name VIKA DUNBAR, Date of Study 07/13/2019 ALEJANDRO WALDEN Gender Male Visit Number [id number] Race Room Number OP Number Date of 1965 Referring Nagayanira Cabrales ti Physician Chris Age 54 year(s) Drywall Taper Maddi seymour, CS Interpreting Primitivo roberts, Physician Fellow DONTE Delcid [...] Transthoracic Echocardiography Report (TTE) Demographics Patient Name Rene CORTEZ of Study 07/13/2019 ALEJANDRO WALDEN Gen alfreda Male Visit Number [id number] Rac e Alba stearns Number OP Number Date of 1965 Ref erring Naga Bhamidipati Joseph owusu Chris Age 54 year(s) Son lyn Roberts, RDCS Int erpreting Joseph Montalvo MD Fellow DONTE Delcid Procedure Type of Study TTE procedure:2DECHO W ASHLEIGH R(CW/PW/COLOR) (Routine) Indications:Pre-surgical evaluation of o rgan [...] T CI: 2.98 l/min/m^2 Performing Organization Address [facility] Phone Number [facility] Type and Screen, Automated (07/13/2019 7:24 AM CDT) Pathologist Sig nature ABO/RH AUTOMATED O POSITIVE [facility] Ab Scrn NEGATIVE [facility] Specimen Blood Performing Organization Address [facility] Center[facility] Phone Number [address] [address] PSA (07/13/2019 7:24 AM CDT) Pathologist Sig nature PSA 0.5 0.0 - 4.0 ng/mL [facility] Specimen Blood Narrative Performed At Outdoor Education Teacher ID - [facility] Performing Organization Address [facility] Phone Number [address] [address] CENTER Hemoglobin A1c (07/13/2019 7:24 AM CDT) Pathologist Sig nature Hemoglobin A1C 6.6 (H) 4.3 - 6.1 % [facility] Specimen Blood Narrative Performed At Outdoor Education Teacher ID - [id number] [facility] [place] Performing Organization Address [facility] Phone Number [address] [address] CENTER Lipid panel (07/13/2019 7:24 AM CDT) Pathologist Sig nature Triglycerides 188 mg/dL [facility] [place] Cholesterol 263 mg/dL [facility] [place] HDL 51 mg/dL [facility] [place] LDL Calculated 174 mg/dL [facility] [place] Specimen Blood Narrative Performed At Triglyceride Reference Range: [facility] Low Risk <150 Borderline 150-199 High Risk 200-499 Very High Risk >=500 Cholesterol Reference Range: Low Risk <200 Borderline 200-239 High Risk >240 HDL Cholesterol Reference Range: Low Risk >=60 High Risk <40 LDL Cholesterol Reference Range: Optimal <100 Near Optimal 100-129 Borderline 130-159 High 160-189 Very High >=190 Outdoor Education Teacher ALEXANDER Jung Performing Organization Address City/State/Zipcode Phone Number [facility] [address] [place], [place] [id number] CENTER after 06/24/2019 Andre [phone] Advance Directives For more information, please contact: [phone] Code Status Date Activated Date Inactivated Comments Full Code 12/14/2019 3:26 PM 12/16/2019 7:30 PM This code status was determined by: Patient
--- OUTSIDE RECORDS SUMMARY | 2020-06-24 06:29 | XMS REPORT | Continuity of Care Document ---
:1965 Author Organization [facility] t Address [address] [place] [address] Care Team Providers Name Role Phone Asked, [...] Unavailable Doctor Unassigned, Name Attending Clinician Unavailable Floresita Guerrero MD Attending Clinician Ivanna GRACE, M Attending Clinician ELISE Admitting Clinician Unavailable Payers Payer Name Policy Type Policy Effective Date Expiration Date Sour ce Number MEDICAREMEDICARE A [id number] 2018 BRITT Gutierrez [id number] 00:00:00 [facility] MEDICAIDMEDICAID OF [id number] 2019 BRITT Gutierrez [id number] 00:00:00 - Medical -PresentMedicaid Center Problems Condition Condition Condition Status Onset Resolution Last Treating Co mments Source Name Details Category Date Date Treatment Clinician Date Volume Volume Disease Active [facility]14 [facility] - 00:00: Medical [address] [place] [address] Groin Groin Disease Active [facility] pain, [...] Disease Active [facility] l[facility] lant 1 [facility] - evaluation evaluation 00:00: Me dical for for 00 Center chronic chronic kidney kidney disease disease Essential Essential Disease Active [facility] hypertensi hypertensi 05-23 Ann-Marie kes - on on 00:00: Medical 00 Center Type 2 Type [address] [facility] diabetes diabetes 05-23 [facility] - mellitus mellitus 00:00: Medica l [...] Date Source Natural brother No Known Problem [facility] Natural father Alcohol abuse [facility] Natural mother No Known Problem [facility] Natural sister Diabetes [facility] Natural sister Kidney disease [facility] Natural sister No Known Problem [facility] Social History Social Habit Start Date Stop Date Quantity Comments Source History of tobacco [facility] sm[facility] use [facility] Std Dr[facility] History [facility] - Alcohol Binge Medical Odette [facility] Sex Assigned At [facility] Cigarettes smoked 2019-12-17 2019-12-[address] [facility] [address] Gutierrez - current (pack per 00:00:00 00:00:00 [facility] day) - Reported Cigarette 2019-12-17 2019-12-[address] [facility] [address] Gutierrez - pack-years 00:00:00 00:00:00 [facility] Tobacco use and 2019-12-17 2019-12-17 Never used [facility] - exposure 00:00:00 00:00:00 [facility] Alcohol intake 2019-12-17 2019-12-17 [facility]00 non-drinker of Medical Ce nter alcohol (finding) History [facility] 2019-05-23 2019-05-[address] [facility] [address] Luvicki - Alcohol Frequency 00:00:00 00:00:00 [facility] Smoking Status Start Date Stop Date Source Former smoker 2019-12-17 00:00:00 2019-12-17 00:00:00 [facility] Medications Ordered Filled Start Stop Current Ordering Indication Dosage Frequency Signature Comments Components Source Medication Medication Date Date Medication? Clinician (SIG) Name Name lovastatin Yes 10mg QD Take [address] (MEVACOR) 8-15 by mouth [facility] - 10 MG 17:30: nightly. Medical tablet [address] [place] [address] calcium Yes 3{tbl} Q.[id number] Take [address] carbonate 8-15 [id number] tablets by [facility] - (TUMS) 500 17:30: 3D mouth 3 Medi benjy mg chewable 21 (three) Cente r tablet times daily. furosemide Yes 20mg QD Take [address] (LASIX) 20 8-15 by mouth [facility] - MG tablet 17:30: daily. Medica l [address] [place] [address] cyclobenzap Yes 1{tbl} QD Take 1 CH [...] MG 00:00: mouth Medical tablet 00 daily. Center amLODIPine Yes 10mg QD Take [address] (NORVASC) 1-16 by mouth [facility] - 10 MG 00:00: daily . Medical tablet 00 Center sevelamer Yes 800mg Q.[id number] [address] (RENVELA) 1-10 [id number] (three) L ukes - 800 mg 00:00: 3D times Medical tablet 00 daily . Center UNITHROID Yes 125ug QD Take [address] 125 mcg 1-10 mcg by [facility] - tablet 00:00: mouth Medical 00 nightly . Center indomethaci 2020- No as needed. [facility] (INDOCIN) 1-07 03-12 [facility] - 50 MG 00:00: 00:00 Medical capsule 00 :00 Center amLODIPine Yes 10mg QD Take 10 mg [...] Source Systolic blood 2019-12-16 13:25:00 142 mm[Hg] [facility] Diastolic blood 2019-12-16 13:25:00 80 mm[Hg] [facility] Heart rate 2019-12-16 13:25:00 76 /min [facility] Body temperature 2019-12-16 13:25:00 36.56 Maureen [facility] Respiratory rate 2019-12-16 13:25:00 16 /min [facility] Oxygen saturation in 2019-12-16 13:25:00 96 /min [facility] Arterial blood by Medical Ce nter Pulse oximetry Body weight 2019-12-16 12:00:00 76.4 kg [facility] BMI 2019-12-16 12:00:00 28.91 kg/m2 [facility] Body height 2019-12-14 08:59:00 162.6 cm [facility] Procedures Procedure Date / Time Performing Clinician Source Performed VASCULAR DIAGRAM -SCAN 2019-12-21 12:53:32 Provider, [facility] VASCULAR DIAGRAM -SCAN 2019-12-21 12:53:28 Provider, [facility] REPORT OF PROCEDURE - 2019-12-19 14:40:39 Provider, [facility] ENDOSCOPY [facility] RHYTHM STRIP - SCAN 2019-12-19 14:40:36 Provider, [facility] VASCULAR DIAGRAM -SCAN 2019-12-19 14:40:32 Provider, [facility] CARDIAC CATH REPORT - SCAN 2019-12-19 14:40:30 Provider, [facility] HEMODIALYSIS INPATIENT 2019-12-16 10:30:[address] [facility] (MANUAL DIFFERENTIAL) 2019-12-16 09:20:00 Sammy Blanco [facility] HEPATITIS B SURFACE 2019-12-16 08:36:00 Patience Nielson [facility] CBC W/PLT+MANUAL DIFF 2019-12-16 04:16:00 Molly Leon [facility] BASIC METABOLIC PANEL (7) 2019-12-16 04:16:00 Edward, Molly [facility] PHOSPHORUS 2019-12-16 04:16:00 Edward, [facility] CBC WITH PLATELET COUNT + 2019-12-16 04:16:00 Edward, Molly [facility] MANUAL DIFF [facility] (CELLAVISION MANUAL DIFF) 2019-12-16 04:16:00 Edward, Molly [facility] CBC W/PLT COUNT & AUTO 2019-12-15 02:32:00 Edward, [facility] S t [facility] - DIFFERENTIAL [facility] BASIC METABOLIC PANEL (7) 2019-12-15 02:32:00 Edward, Molly [facility] PHOSPHORUS 2019-12-15 02:32:00 Edward, [facility] ARTERIAL DOPPLER LEG, 2019-12-15 02:25:00 [facility] R & L CATH / CORONARY 2019-12-14 13:07:[address] [facility] ANGIOS / PCI [facility] ABD AO & LOWER EXT ANGIOS/ 2019-12-14 13:07:00 Sammy Blanco [facility] CBC (HEMOGRAM ONLY) 2019-12-14 09:24:00 Edward, [facility] BASIC METABOLIC PANEL (7) 2019-12-14 09:24:00 Edward, Molly [facility] PROTHROMBIN TIME/INR 2019-12-14 09:24:00 Edward, [facility] SARS-COV2/RT-PCR ([facility] & 2019-12-14 08:40:00 [facility]) [facility] ECG 12-LEAD 2019-12-14 08:07:50 Edward, [facility] URINE CULTURE 2019-11-14 12:16:[address] [facility] US RETROPERITONEAL 2019-08-03 00:00:00 Provider, Historical [facility] - COMPLETE [facility] TRANSFUSION SERVICE REPORT 2019-07-14 18:06:02 Provider, Default [facility] - - SCAN Scanning [facility] ECHOCARDIOGRAM REPORT - 2019-07-13 21:13:42 Provider, Default [facility] - SCAN Scanning [facility] PERIPHERAL VASCULAR REPORT 2019-07-13 21:11:32 Provider, Default [facility] - - SCAN Scanning [facility] TREADMILL 2019-07-13 08:53:54 Unknown, Hl7 Doctor [facility] L [facility] - TOLERANCE(NON-NUCLEAR Medical Ce nter TREADMILL) STRESS ECHO 2019-07-13 08:51:51 Naga, Bhamidipati [facility] L [facility] 2D ECHO W/ DOPPLER 2019-07-13 08:02:00 Naga, amidipamagi [facility] ([facility] ECG 12-LEAD 2019-07-13 07:43:32 Naga, [facility] LIPID PANEL 2019-07-13 07:24:00 Naga, amidipati [facility] HEMOGLOBIN A1C 2019-07-13 07:24:00 [facility] 2019-07-13 07:24:00 Naga, [facility] TYPE AND SCREEN, AUTOMATED 2019-07-13 07:24:00 Naga, amidipa ti [facility] Plan of Care Planned Activity Planned Date Details Comments Source Future Scheduled 2022-07-[address] [facility] - Test 00:00:00 (procedure) [code = [facility] 09904096] Future Scheduled 2020-05-[address] [facility] - Test 00:00:00 (12+) [code = Medical Center DEPRESSION SCREENING (12+)] Future Scheduled 2020-01-[address] Ann-Marie kes - Test 00:00:00 [facility] (procedure) [code = 18542741] Future Scheduled 2020-01-02 INFLUENZA VACCINE (#1) [facility] - Test 00:00:00 [code = INFLUENZA Medical Ce nter VACCINE (#1)] Future Scheduled 2019-12-02 INFLUENZA VACCINE [place] [facility] 00:[facility]:00 [code = INFLUENZA VACCINE] Future [...] Future Scheduled 2015 COLONOSCOPY SCREENING [place] [facility] 00:00:00 [code = COLONOSCOPY SCREENING] Future Scheduled 2015 SHINGLES VACCINES (#1) [place] [facility] 00:00:00 [code = SHINGLES VACCINES (#1)] Future Scheduled 1984 HEPATITIS B VACCINE ([address] [facility] - Test 00:00:00 of 3 - Risk [facility] 3-dose series) [code = HEPATITIS B VACCINE (1 of 3 - Risk Recombivax 3-dose series)] Future Scheduled 1983 Hepatitis C screening [place] [facility] 00:00:00 (procedure) [code = 554685766] Future Scheduled 1981 COVID-19 VACCINE (1 of [place] [facility] 00:00:00 2) [code = COVID-19 VACCINE (1 of 2)] Future Scheduled [address] DIABETIC EYE EXAM [facility] - Test 00:00:00 [code = DIABETIC EYE Medical Center EXAM] Future Scheduled [address] S[facility] - Test 00:00:00 examination Medical Center (regime/therapy) [code = 790112772] Future Scheduled 1975 Urine screening for [facility] - Test 00:00:00 protein (procedure) Medical Center [code = 522603036] Future Scheduled [address] [facility] - Test 00:00:[address] [facility] colon (procedure) [code = 321781065] Encounters Start End Encounter Admission Attending Care Care Encounter Source Date/Time Date/Time Type Type Clinicians Facility Department ID 2019-06-19 2019-06-19 Orders Doctor BRIANNE [id number] 00:00:00 00:00:00 Only Unassigned, RONNY [id number] [facility] [id number] [id number] 2019-01-16 2019-01-16 Telephone Cesar CTKALEIGH [id number] 00:00:00 00:00:00 Robyn PRIMARY [id number] [facility] 4.2.7.2.686 PAVILLION [id number] 2019-01-13 2019-01-13 Transition Tabatha Goncalves [id number] 00:00:00 00:00:00 of Care Yuki Kee [id number] Kamryn 4.2.7.2.686 [id number] Results Test Description Test Time Test [...] RBC Morphology (test code = 762) Normal [facility](MANUAL DIFFERENTIAL)2019-12-16 12:27:00 Test Item Value Reference Range [...] (BEAKER) (test code = Normal 762) HEMODIALYSIS [id number] 10:30:00Celestine Luu III, MD 12/16/2019 7[facility]/16/2019I have personallyseen and examined Alejandro Dunbar on hemodialysisIndication :ESRDPrescription: F160, 3-4 hrs, 2.0K, 2.5 Ca, UF2-3 L as tolReason for exam: BP fluctuation & adjust dry weightTolerating dialysis ok Celestine Luu III, MD12/16/2019[facility] [id number] 09:48:00 Test Item Value Reference Range Interpretation Comments HBsAg Screen (test code Nonreactive Nonreactive = 5195-3) LOVE (test code = LOVE) Specimen is considered negative for HBsAg. Lab Interpretation (test Normal code = 93063-2) [facility] B SURFACE [id number] 09:48:00 Test Item Value Reference Range Interpretation Comments HEPATITIS B SURFACE ANTIGEN (2) Nonreactive Nonreactive (BEAKER) (test code = 2585) Specimen is considered negative for HBsAg.Manual [id number] 08:57:00 Test Item Value Reference Range Interpretation [...] few Lab Interpretation (test code = Abnormal 51985-7) [facility](CELLAVISION MANUAL DIFF)2019-12-16 08:57:00 Test Item Value Reference [...] (BEAKER) (test code = 1+ few 966) [id number] 05:55:00 Test Item Value Reference Range Interpretation Comments Phosphorus (test code = 9.2 mg/dL 2.3-4.7 2777-1) LOVE (test code = LOVE) Medical Receptionist Assistant ALEXANDER - RA Nunez Lab Interpretation (test Abnormal code = 85560-5) [facility]2020-08-15 05:55:00 Test Item Value Reference Range Interpretation Comments PHOSPHORUS (BEAKER) (test code = 9.2 mg/dL 2.3-4.7 HH 604) Medical Receptionist Assistant ALEXANDER KNAPP MBasic Metabolic [id number] 05:04:00 Test Item Value Reference Range Interpretation [...] Calcium (test code = 9.4 mg/dL 8.4-10.2 64775-0) EGFR (test code = 4 mL/min/1.73 [place] [address]-9) NOT ACCURATE CREATININE CLEARANCE IN PREDICTING GLOMERULAR FILTRATION RATE . ESTIMATED GFR I S NOT APPLICABLE FOR DIALYSIS PATIENTS. LOVE (test code = LOVE) Medical Receptionist Assistant ALEXANDER - RA Nunez Lab Interpretation Abnormal (test code = 26129-2) [facility]OL[facility] [id number] 05:04:00 Test Item Value Reference Range Interpretation [...] S NOT APPLICABLE FOR DIALYSIS PATIEN TS. Medical Receptionist Assistant ID - RA MCBC with platelet count + manual [id number] 04:42:00 Test Item Value Reference Range Interpretation Comments WBC (test code = 6690-2) 9.0 See_Comment [A utomated message] The system [employer] generated this result transmitted ref erence range: 3.5 - 10 .5 K/L. The refe rence range was not u sed to interpret this result as normal/abnor mal. RBC (test code = 789-8) 3.37 See_Comment L [Au tomated message] The system [employer] generated this result transmitted ref erence range: 4.63 - 6 .08 M/L. The refe rence range was not u sed to interpret this result as normal/abnor mal. MCHC (test code = 786-4) 33.4 See_Comment L [A utomated message] The system [employer] generated this result transmitted ref erence range: 32.3 - 3 6.5 GM/DL. The refe rence range was not u sed to interpret this result as normal/abnor mal. Hematocrit (test code = 31.7 % 40.1-51 L 4544-3) MCV (test code = 787-2) 94.1 fL 79-92.2 H MCH (test code = 785-6) 31.5 pg 25.7-32.2 RDW (test code = 788-0) 13.9 % 11.6-14.4 Platelets (test code = 213 See_Comment [Aut omated message] 777-3) The system [employer] generated this result transmitted ref erence range: 150 - 45 0 K/CU MM. The referen ce range was not u sed to interpret this result as normal/abnor mal. MPV (test code = 10.0 fL 9.4-12.4 44069-1) nRBC (test code = 413) 0 See_Comment [Aut omated message] The system [employer] generated this result transmitted ref erence range: 0 - 0 /1 00 WBC. The refere nce range was not u sed to interpret this result as normal/abnor mal. Lab Interpretation (test Abnormal code = 92743-5) [facility] WITH PLATELET COUNT + MANUAL [id number] 04:42:00 Test Item Value Reference Range Interpretation [...] (test code = 413) Arterial Doppler Leg, [id number] 08:16:33Ejection FractionSLE ECHO HEARTLAB MKCKESSON CPACSRight Impression1. [...] External Ris In - 12/15/2019 8:16 AM [facility] - Pseudoaneurysm Survey Demographics Patient Name VIKA DUNBAR, Date of Study 12/15/2019 ALEJANDRO WALDEN Age 54 Visit Number [id number] Gender Male Accession Number [id number] Date of 1965 Referring Elise Christianson [facility] Number [id number] Physician [employer] Kylah Escoto [facility] Interpreting Nancy Granda Physician ProcedureType of Study: Pseudoaneurysm: PSEUDOANEURYSM, GROIN DOPPLER [...] in cm/s ; Diameters are measured in [facility] BASIC METABOLIC [id number] 03:00:00 Test Item Value Reference Range Interpretation [...] S NOT APPLICABLE FOR DIALYSIS PATIEN TS. Medical Receptionist Assistant ID - RA [id number] 02:58:00 Test Item Value Reference Range Interpretation Comments PHOSPHORUS (BEAKER) (test code = 7.4 mg/dL 2.3-4.7 H 604) Medical Receptionist Assistant ID - RA MCBC with platelet count + automated [id number] 02:38:00 Test Item Value Reference Range Interpretation Comments WBC (test code = 6690-2) 9.0 See_Comment [A utomated message] The system [employer] generated this result transmitted ref erence range: 3.5 - 10 .5 K/L. The refe rence range was not u sed to interpret this result as normal/abnor mal. RBC (test code = 789-8) 3.66 See_Comment L [Au tomated message] The system [employer] generated this result transmitted ref erence range: 4.63 - 6 .08 M/L. The refe rence range was not u sed to interpret this result as normal/abnor mal. MCHC (test code = 786-4) 32.8 See_Comment L [A utomated message] The system [employer] generated this result transmitted ref erence range: 32.3 - 3 6.5 GM/DL. The refe rence range was not u sed to interpret this result as normal/abnor mal. Hematocrit (test code = 35.1 % 40.1-51 L 4544-3) MCV (test code = 787-2) 95.9 fL 79-92.2 H MCH (test code = 785-6) 31.4 pg 25.7-32.2 RDW (test code = 788-0) 14.0 % 11.6-14.4 Platelets (test code = 225 See_Comment [Aut omated message] 777-3) The system [employer] generated this result transmitted ref erence range: 150 - 45 0 K/CU MM. The referen ce range was not u sed to interpret this result as normal/abnor mal. MPV (test code = 9.9 fL 9.4-12.4 31201-9) nRBC (test code = 413) 0 See_Comment [Aut omated message] The system [employer] generated this result transmitted ref erence range: 0 - 0 /1 00 WBC. The refere nce range was not u sed to interpret this result as normal/abnor mal. % Neutros (test code = 72 % 429) % Lymphs (test code = 19 % 430) % Monos (test code = 7 % 431) % Eos (test code = 432) 2 % % Baso (test code = 437) 1 % # Neutros (test code = 6.46 See_Comment H [Aut omated message] 670) The system [employer] generated this result transmitted ref erence range: 1.78 - 5 .38 K/L. The refe rence range was not u sed to interpret this result as normal/abnor mal. # Lymphs (test code = 1.67 See_Comment [Auto mated message] 414) The system [employer] generated this result transmitted ref erence range: 1.32 - 3 .57 K/L. The refe rence range was not u sed to interpret this result as normal/abnor mal. # Monos (test code = 0.60 See_Comment [Autom ated message] 415) The system [employer] generated this result transmitted ref erence range: 0.30 - 0 .82 K/L. The refe rence range was not u sed to interpret this result as normal/abnor mal. # Eos (test code = 416) 0.14 See_Comment [Au tomated message] The system [employer] generated this result transmitted ref erence range: 0.04 - 0 .54 K/L. The refe rence range was not u sed to interpret this result as normal/abnor mal. # Baso (test code = 417) 0.11 See_Comment H [A utomated message] The system [employer] generated this result transmitted ref erence range: 0.01 - 0 .08 K/L. The refe rence range was not u sed to interpret this result as normal/abnor mal. Immature 0 % 0-1 Granulocytes-Relative (test code = 2801) Lab Interpretation (test Abnormal code = 05277-3) [facility] W/PLT COUNT & AUTO [id number] 02:38:00 Test Item Value Reference Range Interpretation [...] (BEAKER) (test code = 2801) ECG 12 [id number] 14:18:34Interface, External Ris In - 12/14/2019 2:18 PM CDTVentricular Rate 73 BPMAtrial Rate 73 BPMP-R Interval 184 msQRS Duration 100 msQ-T Interval 400 msQTC Calculation(Bazett) 440 msP Enterprise 59 degreesR Enterprise 75 degreesT Enterprise 122 degreesNormal sinus rhythmNonspecific T wave abnormalityAbnormal ECGWhen compared with ECG of 13-JUL-2019 07:43,No significant change was foundConfirmed by MD Mehdi, Aston ([id number]) on 12/14/2019 2:18:32 [facility]2019-12-14 11:10:00 Test Item Value Reference Range Interpretation Comments SARS-COV2/RT-PCR Negative Not Detected, (test code = Negative, See 429[address]-7) external report for linked test SARS-COV-2 [facility] PERFORMING LAB (test code = 04058-8) LOVE (test code = Negative results do [...] of the Act. Fact Sheet for Healthcare Providers:https://www.[employer].com/Documents/Xper t%20Xpress%20SARS%20CoV- 2/Fact%20Sheets/3023802 %09ECMJ-HZT-9%20HEALTHCA RE%20PROVIDERS%20FACT%20 SHEET.pdf Fact Sheet for Healthcare Patients:https://www.[employer]/Documents/Xpert %20Xpress%20SARS%20CoV-2 /Fact%20Sheets/3023801% 35EDTC-LNL-9%20PATIENT%2 0FACT%20SHEET.pdf Performing Laboratory:[facility] [place] [address] [place], [place] [address]ARS-COV2/RT-PCR ([facility] & REF LABS)2019-12-14 11:10:00 Test Item Value Reference Range Interpretation Comments SARS-COV2/RT-PCR (test code Negative Not Detected, Negative, = 1534228) See external report for linked test SARS-COV-[address] [facility] (test code = 1791744) Negative results do not preclude SARS-CoV-2 infection [...] of the Act.Fact Sheet for Healthcare Pro viders:https://www.[employer]/Documents/Xpert%20Xpress%20SARS%20CoV-2/Fact%20Sh eets/302-3802%78UPXH-EID-9%20HEALTHCARE%20PROVIDERS%20FACT%20SHEET.pdfFact Sheet for Healthcare Patients:https://www.[employer]/Documents/Xpert%20Xpress%20SARS%20CoV-2/Fact%20Sheets/302-3801%20SARS-COV -2%20PATIENT%20FACT%20SHEET.pdfPerforming Laboratory:[facility] [place] [address].[place], [place] [address]TCMVS METABOLIC [id number] 09:53:00 Test Item Value Reference Range Interpretation [...] I S NOT APPLICABLE FOR DIALYSIS PATIEN PRATIK. Medical Receptionist Assistant ID - ROSIANGProthrombin time/[id number] 09:39:00 Test Item Value Reference Interpretation Comments Range Protime (test code = 15.0 See_Comment H [Autom ated 5902-2) message] The system which generated this result transmitted reference range : 11.9 - 14.2 seconds. The reference range was not used to interpret this result as normal/abnormal . INR (test code = 1.21 See_Comment [Automated 6301-6) message] The system which generated this result transmitted reference range : <=5.90. The reference range was not used to interpret this result as normal/abnormal . LOVE (test code = Effective 09/28/2018: LOVE) PT Reference Range ChangeNew: 11.9-14.2 Previous: 11.7-14.7 RECOMMENDED COUMADIN/WARFARIN INR THERAPY RANGESSTANDARD DOSE: 2.0-3.0 Includes: PROPHYLAXIS for venous thrombosis, systemic embolization; TREATMENT for venous thrombosis and/or pulmonary embolus.HIGH RISK: Target INR is 2.5-3.5 for patients wiht mechanical heart valves. Lab Interpretation Abnormal (test code = 74250-2) [facility] TIME/[id number] 09:39:00 Test Item Value Reference Range Interpretation Comments PROTIME (PARKAKER) (test code = 15.0 seconds 11.9-14.2 H [...] Comments WBC (test code = 6690-2) 6.8 See_Comment [A utomated message] The system [employer] generated this result transmitted ref erence range: 3.5 - 10 .5 K/L. The refe rence range was not u sed to interpret this result as normal/abnor mal. RBC (test code = 789-8) 4.26 See_Comment L [Au tomated message] The system [employer] generated this result transmitted ref erence range: 4.63 - 6 .08 M/L. The refe rence range was not u sed to interpret this result as normal/abnor mal. MCHC (test code = 786-4) 33.3 See_Comment L [A utomated message] The system [employer] generated this result transmitted ref erence range: 32.3 - 3 6.5 GM/DL. The refe rence range was not u sed to interpret this result as normal/abnor mal. Hematocrit (test code = 40.3 % 40.1-51 4544-3) MCV (test code = 787-2) 94.6 fL 79-92.2 H MCH (test code = 785-6) 31.5 pg 25.7-32.2 RDW (test code = 788-0) 14.1 % 11.6-14.4 Platelets (test code = 243 See_Comment [Aut omated message] 777-3) The system [employer] generated this result transmitted ref erence range: 150 - 45 0 K/CU MM. The referen ce range was not u sed to interpret this result as normal/abnor mal. MPV (test code = 9.3 fL 9.4-12.4 L 77115-2) nRBC (test code = 413) 0 See_Comment [Aut omated message] The system [employer] generated this result transmitted ref erence range: 0 - 0 /1 00 WBC. The refere nce range was not u sed to interpret this result as normal/abnor mal. Lab Interpretation (test Abnormal code = 95700-4) [facility] (HEMOGRAM ONLY)2019-12-14 09:38:00 Test Item Value Reference [...] 0-0 (BEAKER) (test code = 413) URINE [id number] 11:01:00 Test Item Value Reference Range Interpretation Comments CULTURE (BEAKER) ENTEROCOCCUS A 40-49,000 c ol/mL (test code = 1095) FAECALIS Enterococ cus faecalis Ampicillin (test S code = 26) Linezolid (test code S = 40) Nitrofurantoin (test S code = 23) Tetracycline (test R code = 2) Vancomycin (test S code = 13) <10,000 col/mL skin floraTreadmill tolerance(Non-Nuclear Treadmill)2019-07-24 13:38:39Interface, External Ris In 07/24/2019 1:38 PM CDTProtocol Name DOBUT TM-1 [...] Norvasc, Indomethacin,RENVELANo Complications.Confirmed by MD SOW RAYMOND ([id number]) on 07/24/2019 1:38:26 [facility] [id number] 11:07:12 Test Item Value Reference Range Interpretation Comments Ejection Fraction Est EF of >70% (test code = 2574) PXN (test code = Interface, External Ris In PXN) - 07/13/2019 11:07 AM CDTStress Echocardiography Report Demographics Patient Name VIKA DUNBAR, Date of Study 07/13/2019 ALEJANDRO WALDEN Gender Male Visit Number [id number] Race Room Number OP Number Date of 1965 Referring Naga Morin Physician Nora Age 54 year(s) 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 Maddi Roberts, [facility] Interpreting Primitivo Garcia Physician Fellow DONTE Delcid [...] CO: 5.42 l/min LVOT CI: 2.98 l/min/m^2[facility] 2019-07-13 09:52:00 Test Item Value Reference Range Interpretation Comments Hemoglobin A1C (test code 6.6 % 4.3-6.1 H = 4548-4) LOVE (test code = LOVE) Medical Receptionist Assistant ID - [id number] Lab Interpretation (test Abnormal code = 12159-9) [facility] [id number] 09:52:00 Test Item Value Reference Range Interpretation Comments HEMOGLOBIN A1C (BEAKER) (test code = 6.6 % 4.3-6.1 H 368) Medical Receptionist Assistant ID - [id number] 09:08:00 Test Item Value Reference Range Interpretation Comments PSA (test code = 2857-1) 0.5 ng/mL 0-4 LOVE (test code = LOVE) Medical Receptionist Assistant ID - CAROLINA F Lab Interpretation (test Normal code = 06987-0) [facility] 09:08:00 Test Item Value Reference Range Interpretation Comments PROSTATE SPECIFIC ANTIGEN (BEAKER) 0.5 ng/mL 0.0-4.0 (test code = 844) Medical Receptionist Assistant ID - PITER FType and Screen, [id number] 08:20:00 Test Item Value Reference Range Interpretation Comments ABO/RH AUTOMATED (BEAKER) (test O POSITIVE code = 2260) Ab Scrn (test code = 890-4) NEGATIVE [facility] CenterLipid [id number] 08:00:00 Test Item Value Reference Range Interpretation Comments Triglycerides (test 188 mg/dL code = 2571-8) Cholesterol (test code 263 mg/dL = 2093-3) HDL (test code = 51 mg/dL 2085-9) LDL Calculated (test 174 mg/dL code = 50488-0) LOVE (test code = LOVE) Triglyceride Reference Range: Low Risk <150 Borderline 150-199 High Risk 200-499 Very High Risk >=500 Cholesterol Reference Range: Low Risk <200 Borderline 200-239 High Risk >240 HDL Cholesterol Reference Range: Low Risk >=60 High Risk <40 LDL Cholesterol Reference Range: Optimal <100 Near Optimal 100-129 Borderline 130-159 High 160-189 Very High >=190 Medical Receptionist Assistant ID - CHUCHO Jung [facility] CenterLIP[facility] [id number] 08:00:00 Test Item Value Reference Range Interpretation [...] Borderline 130-159 High 160-189 Very High >=190 Medical Receptionist Assistant ID - CHUCHO GOMES [id number] 14:35:00 Test Item Value Reference Range Interpretation Comments CULTURE (BEAKER) ENTEROCOCCUS A 10-19,000 c ol/mL (test code = 1095) FAECALIS Enterococ cus faecalis Ampicillin (test S code = 26) Levofloxacin (test S code = 22) Linezolid (test code S = 40) Nitrofurantoin (test S code = 23) Tetracycline (test R code = 2) Vancomycin (test S code = 13) 10-19,000 col/mL skin [id number] 10:31:00 Test Item Value Reference Range Interpretation Comments RPR SCREEN (BEAKER) (test code = Nonreactive Nonreactive 420) U/S, ABDOMINAL, [id number] 16:14:00Reason for Exam:->Kidney transplant evaluation; comment on [...] Phipps Verified Date/Time: 05/23/2019 16:14:42 Reading Location: [address] Radiology Reading Room RAD, CHEST, 2 [id number] 16:02:00Reason for Exam:->Pre kidney transplant evaluation.FINAL REPORT TECHNIQUE: Frontal and [...] MDReport Verified Date/Time: 05/23/2019 16:02:27 Reading Location: [address] Radiology Reading Room Electronically signed by: TAMIKA PHIPPS MD on05/23/2019 04:02 PMCYTOMEGALOVIRUS ANTIBODY, IGG 2019-05-23 15:17:00 Test Item Value Reference Range Interpretation Comments CYTOMEGALOVIRUS, IGG (BEAKER) Positive Negative, Equivocal A (test code = 3429) CMV IgG Result Interpretation: </= 0.8 Al Negative 0.9-1.0 Al Equivocal >/=1.1 Al PositiveCYTOMEGALOVIRUS ANTIBODY, [id number] 15:17:00 Test Item Value Reference Range Interpretation Comments CYTOMEGALOVIRUS IGM ANTIBODY Negative Negative, Equivocal (BEAKER) (test code = 3437) CMV IgM Result Interpretation: </= 0.8 Al Negative 0.9-1.0 Al Equivocal >/= 1.1 Al PositiveEBV ANTIBODY, [id number] 15:17:00 Test Item Value Reference Range Interpretation [...] Equivocal >/= 1.1 Al PositiveVARICELLA ZOSTER ANTIBODY, [id number] 15:17:00 Test Item Value Reference Range Interpretation Comments VARICELLA ZOSTER IGG (AL) (BEAKER) 3.4 (test code = 3197) VARICELLA ZOSTER RESULT INTERPRETATIONS: <=0.8 Al Nonreactive: Presumed non-immune to VZV 0.9-1.0 Al Equivocal >=1.1 Al Reactive: Presumed immune to VZVHEPATITIS B SURFACE [id number] 12:59:00 Test Item Value Reference Range Interpretation Comments HEPATITIS B SURFACE ANTIBODY 78638.3 mIU/mL <8.0 H (SearchspaceAKER) (test code = 647) Medical Receptionist Assistant ID - NACHOIANGHEPATITIS B SURFACE [id number] 12:47:00 Test Item Value Reference Range Interpretation Comments HEPATITIS B SURFACE ANTIGEN (2) Nonreactive Nonreactive (SearchspaceAKER) (test code = 2585) Medical Receptionist Assistant ID - NACHOIANGHEPATITIS B CORE ANTIBODY, [id number] 12:47:00 Test Item Value Reference Range Interpretation Comments HEPATITIS B CORE IGM ANTIBODY Nonreactive Nonreactive (BEAKER) (test code = 645) Medical Receptionist Assistant ID - ROSIANGHEPATITIS C [id number] 12:47:00 Test Item Value Reference Range Interpretation Comments HEPATITIS C ANTIBODY (BEAKER) Nonreactive Nonreactive (test code = 367) Medical Receptionist Assistant ID - NANCYGHIV-1 ANTIGEN WITH HIV-1/2 [id number] 12:47:00 Test Item Value Reference Range Interpretation Comments HIV-1 ANTIGEN WITH HIV 1\T\2 Nonreactive Nonreactive ANTIBODY (2) (BEAKER) (test code = 2586) Medical Receptionist Assistant ID - ROSIANGPTH, [id number] 12:03:00 Test Item Value Reference Range Interpretation Comments PARATHYROID HORMONE INTACT 430.9 pg/mL 8.5-72.5 H (SearchspaceAKER) (test code = 577) Medical Receptionist Assistant ID - LACOMPREHENSIVE METABOLIC [id number] 11:56:00 Test Item Value Reference Range Interpretation [...] S NOT APPLICABLE FOR DIALYSIS PATIEN TS. Medical Receptionist Assistant ID - LAURIC [id number] 11:55:00 Test Item Value Reference Range Interpretation Comments URIC ACID (BEAKER) (test code = 5.5 mg/dL 2.6-7.2 773) Medical Receptionist Assistant ID - [id number] 11:55:00 Test Item Value Reference Range Interpretation Comments PHOSPHORUS (BEAKER) (test code = 5.5 mg/dL 2.3-4.7 H 604) Medical Receptionist Assistant ID - LAGAMMA GLUTAMYL TRANSFERASE (GGT)2019-05-23 11:55:00 Test Item Value Reference Range Interpretation Comments GAMMA GLUTAMYL TRANSFERASE (BEAKER) 20 U/L 9-64 (test code = 364) Medical Receptionist Assistant ID - LALACTATE DEHYDROGENASE (LDH)2019-05-23 11:55:00 Test Item Value Reference Range Interpretation Comments LACTATE DEHYDROGENASE (BEAKER) (test 249 U/L 125-220 H code = 635) Medical Receptionist Assistant ID - LAURINALYSIS W/ [id number] 11:43:00 Test Item Value Reference Range Interpretation [...] < /HPF SOURCE(BEAKER) (test code = 2795) Medical Receptionist Assistant ID - [auto]Medical Receptionist Assistant ID - [id number] 11:32:00 Test Item Value Reference Range Interpretation [...] is2.5-3.5 for patients wiht mechanical heart valves.PROTHROMBIN TIME/[id number] 11:31:00 Test Item Value Reference Range Interpretation [...] mechanical heart valves.CBC W/PLT COUNT & AUTO [id number] 11:27:00 Test Item Value Reference Range Interpretation [...] % 0-1 PERCENT (BEAKER) (test code = 5372)
[2020-06-24 06:50] LABS: Absolute Lymphocytes (CBC) 0.7 K/uL (0.7-4.9); Basophils % 1.1 % (0-1.3); Hematocrit 34.2 % (39.6-49.0); Lymphocytes % 8.8 % (15.3-44.8); MPV 7.4 fL (7.6-11.3); RBC Red Blood Cell Count 3.56 M/uL (4.33-5.43)
[2020-06-24 06:51] LABS: Protime INR 0.91
[2020-06-24 07:12] LABS: ALT/SGPT 23 U/L (12-78); AST/SGOT 23 U/L (15-37); Albumin 4.4 g/dL (3.4-5.0); Alkaline Phosphatase 70 U/L (45-117); BUN Blood Urea Nitrogen 53 mg/dL (7-18); Bicarbonate 23 mmol/L (21-32); Bilirubin Direct < 0.1 mg/dL (0-0.2); Bilirubin Total 0.3 mg/dL (0.2-1.0); Glucose Level 189 mg/dL (74-106); Magnesium 2.1 mg/dL (1.8-2.4); NT PRO-BNP 1531 pg/mL (<125); Protein, Total 8.9 g/dL (6.4-8.2); Sodium Level 135 mmol/L (136-145); Troponin (Emerg Dept Use Only) < 0.02 ng/mL (0.0-0.045)
[2020-06-24] MEDS ORDERED: MECLIZINE HCL 12.5 MG TAB ONE (08:09)
[2020-06-24] MEDS ORDERED: ONDANSETRON 4 MG/2 ML VIAL ONE (08:09)
--- NOTE | 2020-06-24 08:29 | RAD REPORT ---
EXAM DESCRIPTION: CT - Head Brain Wo Cont - 06/24/2020 7:25 am CLINICAL HISTORY: DIZZINESS Headache, drowsiness COMPARISON: No comparisons TECHNIQUE: All CT scans are performed using dose optimization technique as appropriate and may inclu de automated exposure control or mA/KV adjustment according to patient size. FINDINGS: No intracranial hemorrhage, hydrocephalus or extra-axial fluid collection.Mild generalized brain atrophy is present with mild periventricular and deep white matter chronic microvascular ische rachna changes.No areas of brain edema or evidence of midline shift. 3.5 cm left middle cranial fossa re gion arachnoid cyst suspected. The paranasal sinuses and mastoids are clear. The calvarium is intact. IMPRESSION: No acute intracranial abnormality.
--- NOTE | 2020-06-24 08:54 | EDPHYS ---
Physician Documentation [facility] Name: Alejandro Dunbar Age: 55 yrs Sex: Male : 1965 Arrival Date: 06/24/2020 Time: 06:24 Bed 18 Private MD: ED Physician Tomas Cast HPI: 06/24 06:37 This 55 yrs old Male presents to ER via EMS with complaints of General mh7 Weakness, Tingling in chest. 06:37 The patient presents with dizziness, sense of spinning. Onset: The symptoms/episode mh7 began/occurred today, at 05:00. Context: occurred at home, occurred while the patient was sitting. Modifying factors: The symptoms are alleviated by nothing, the symptoms are aggravated by standing up, changing position. Associated signs and symptoms: Pertinent positives: shortness of breath, Pertinent negatives: abdominal pain, agitation, ataxia, blurred vision, chest pain, combativeness, confusion, diaphoresis, focal weakness, head injury, headache, nausea, near-syncope, numbness, palpitations, , seizure, syncope, tingling, vomiting. Severity of symptoms: At their worst the symptoms were moderate today, in the emergency department the symptoms are unchanged. Historical: - Allergies: 06:30 No Known Allergies; mg2 - PMHx: 06:30 Diabetes - NIDDM; Dialysis; High Cholesterol; Hypertension; Hypothyroidism; mg2 - Immunization history:: Flu vaccine status is unknown. - Social history:: Smoking status: Patient denies any tobacco usage or history of. ROS: 06:37 Constitutional: Negative for fever, chills, and weight loss, Eyes: Negative for injury, mh7 pain, redness, and discharge, ENT: Negative for injury, pain, and discharge, Neck: Negative for injury, pain, and swelling, Cardiovascular: Negative for chest pain, palpitations, and edema, Abdomen/GI: Negative for abdominal pain, nausea, vomiting, diarrhea, and constipation, Back: Negative for injury and pain, : Negative for injury, bleeding, discharge, and swelling, MS/Extremity: Negative for injury and deformity, Skin: Negative for injury, rash, and discoloration, Psych: Negative for depression, anxiety, suicide ideation, homicidal ideation, and hallucinations, Allergy/Immunology: Negative for hives, rash, and allergies, Endocrine: Negative for neck swelling, polydipsia, polyuria, polyphagia, and marked weight changes, Hematologic/Lymphatic: Negative for swollen nodes, abnormal bleeding, and unusual bruising. Exam: 06:37 Constitutional: This is a well developed, well nourished patient who is awake, alert, mh7 and in no acute distress. Head/Face: Normocephalic, atraumatic. Eyes: Pupils equal round and reactive to light, extra-ocular motions intact. Lids and lashes normal. Conjunctiva and sclera are non-icteric and not injected. Cornea within normal limits. Periorbital areas with no swelling, redness, or edema. Neck: Trachea midline, no thyromegaly or masses palpated, and no cervical lymphadenopathy. Supple, full range of motion without nuchal rigidity, or vertebral point tenderness. No Meningismus. Chest/axilla: Normal chest wall appearance and motion. Nontender with no deformity. No lesions are appreciated. Cardiovascular: Regular rate and rhythm with a normal S1 and S2. No gallops, murmurs, or rubs. Normal PMI, no JVD. No pulse deficits. 06:37 Abdomen/GI: Soft, non-tender, with normal bowel sounds. No distension or tympany. No guarding or rebound. No evidence of tenderness throughout. Back: No spinal tenderness. No costovertebral tenderness. Full range of motion. Skin: Warm, dry with normal turgor. Normal color with no rashes, no lesions, and no evidence of cellulitis. MS/ Extremity: Pulses equal, no cyanosis. Neurovascular intact. Full, normal range of motion. Neuro: Awake and alert, GCS 15, oriented to person, place, time, and situation. Cranial nerves II-XII grossly intact. Motor strength 5/5 in all extremities. Sensory grossly intact. Cerebellar exam normal. Normal gait. Psych: Awake, alert, with orientation to person, place and time. Behavior, mood, and affect are within normal limits. 06:37 Respiratory: the patient does not display signs of respiratory distress, Respirations: normal, Breath sounds: rhonchi, that are mild, are scattered, Respiratory rate: 18 Vital Signs: 06:24 BP 152 / 75; Pulse 65; Resp 17; Temp 98; Pulse Ox 98% on R/A; mg2 07:30 BP 139 / 85; Pulse 64; Resp 18; Pulse Ox 97% on 2 lpm NC; ph 08:30 BP 132 / 81; Pulse 63; Resp 16; Pulse Ox 96% on 2 lpm NC; ph 09:30 BP 140 / 81; Pulse 63; Resp 16; Pulse Ox 95% on 2 lpm NC; ph 10:30 BP 133 / 61; Pulse 64; Resp 16; Pulse Ox 100% on 2 lpm NC; ph 11:42 BP 133 / 61; Pulse 65; Resp 20; Pulse Ox 100% on 2 lpm NC; ph 12:30 BP 112 / 69; Pulse 63; Resp 18; Pulse Ox 98% on 2 lpm NC; ph 13:39 BP 127 / 86; Pulse 67; Resp 18; Pulse Ox 98% on 2 lpm NC; ph 14:30 BP 124 / 78; Pulse 68; Resp 18; Pulse Ox 97% on R/A; ph MDM: 07:17 Patient medically screened. rn 07:17 ED course: Signed out to me by Dr Gonsalves who states patient seems chronically ill but rn does not seem to have acute process, ordered bloodwork and ct head, his plan was to dc home if w/u neg for dialysis as did not have dialysis today.. 08:50 Differential diagnosis: generalized weakness, idiopathic dizziness, vertigo, pneumonia, rn COVID, flu, dehydration, electrolyte disorder, ESRD. Data reviewed: vital signs, nurses notes, lab test result(s), EKG, radiologic studies, CT scan, plain films, and as a result, I will admit patient. Counseling: I had a detailed discussion with the patient and/or guardian regarding: the historical points, exam findings, and any diagnostic results supporting the discharge/admit diagnosis, lab results, radiology results, the need for further work-up and treatment in the hospital. Admission orders: after a detailed discussion of the patient's condition and case, the admit orders are written by me. 06/24 06:29 Order name: Basic Metabolic Panel mg2 06/24 06:29 Order name: CBC with Diff mg2 06/24 06:29 Order name: LFT's mg2 06/24 06:29 Order name: Magnesium mg2 06/24 06:29 Order name: NT PRO-BNP; Complete Time: 07:17 mg2 06/24 06:29 Order name: PT-INR; Complete Time: 07:09 mg2 06/24 06:29 Order name: Troponin (emerg Dept Use Only); Complete Time: 07:17 mg2 06/24 06:30 Order name: Basic Metabolic Panel; Complete Time: 07:17 EDMS 06/24 06:30 Order name: CBC with Automated Diff; Complete Time: 07:09 EDMS 06/24 06:30 Order name: Liver (Hepatic) Function; Complete Time: 07:17 EDMS 06/24 06:30 Order name: Magnesium; Complete Time: 07:17 EDMS 06/24 07:44 Order name: Blood Culture Adult (2) rn 06/24 06:29 Order name: XRAY Chest (1 view); Complete Time: 08:58 mg2 06/24 07:11 Order name: CT Head Brain wo Cont; Complete Time: 08:49 mh7 06/24 07:44 Order name: Procalcitonin; Complete Time: 08:49 rn 06/24 10:23 Order name: Comprehensive Metabolic Panel EDMS 06/24 10:24 Order name: CBC with Automated Diff EDMS 06/24 10:24 Order name: CBC with Automated Diff EDMS 06/24 10:24 Order name: Comprehensive Metabolic Panel EDMS 06/24 10:24 Order name: Protime (+INR) EDMS 06/24 10:24 Order name: Protime (+INR) EDMS 06/24 10:24 Order name: PTT, Activated Partial Thromb EDMS 06/24 10:24 Order name: PTT, Activated Partial Thromb EDMS 06/24 10:25 Order name: COVID-19/FLU A+B EDMS 06/24 06:29 Order name: EKG; Complete Time: 06:30 mg2 06/24 06:29 Order name: Cardiac monitoring; Complete Time: 06:29 mg2 06/24 06:29 Order name: EKG - Nurse/Tech; Complete Time: 06:29 mg2 06/24 06:29 Order name: IV Saline Lock; Complete Time: 06:29 mg2 06/24 06:29 Order name: Labs collected and sent; Complete Time: 06:29 mg2 06/24 06:29 Order name: O2 Per Protocol; Complete Time: 06:29 mg2 06/24 06:29 Order name: O2 Sat Monitoring; Complete Time: 06:29 mg2 06/24 10:24 Order name: CONS Pharmacy Consult EDMS 06/24 10:24 Order name: CONS Physician Consult EDMS 06/24 10:24 Order name: Renal EDMS Administered Medications: 08:00 Drug: Zofran (Ondansetron) 4 mg Route: IVP; Site: right antecubital; ph 18:20 Follow up: Response: No adverse reaction; Nausea is decreased ph 08:21 Drug: Meclizine 50 mg Route: PO; ph 09:00 Follow up: Response: No adverse reaction ph 10:00 Drug: Rocephin 1 grams Route: IV; Rate: calculated rate; Site: right antecubital; ph 11:15 Follow up: Response: No adverse reaction; IV Status: Completed infusion ph 11:41 Drug: Zithromax 500 mg Route: IVPB; Infused Over: 1 hrs; Site: right antecubital; ph 12:45 Follow up: Response: No adverse reaction; IV Status: Completed infusion; IV Intake: ph 250ml Disposition: 06/24/20 08:54 Hospitalization ordered by Danis Bess for Inpatient Admission. Preliminary diagnosis are Weakness, Pneumonia, unspecified organism, Dizziness and giddiness, End stage renal disease. - Bed requested for Telemetry/MedSurg (Inpatient). - Status is Inpatient Admission. ph - Condition is Stable. - Problem is new. - Symptoms are unchanged. Signatures: Dispatcher [employer] EDNM Earline Wiley Roman, MD MD rn Hall, Patricia, RN RN ph Gardose, Michele, RN RN [facility] George Gonsalves MD MD mh7 Corrections: (The following items were deleted from the chart) 09:37 07:45 Influenza Screen (A ordered. EDNM EDNM 09:37 07:45 Influenza Screen (A \T\ B)+BA.LAB.BRZ ordered. [facility] 14:11 08:54 Hospitalization Ordered by Danis Bess MD for Inpatient Admission. Preliminary bd diagnosis is Weakness; Pneumonia, unspecified organism; Dizziness and giddiness; End stage renal disease. Bed requested for Telemetry/MedSurg (Inpatient). Status is Inpatient Admission. Condition is Stable. Problem is new. Symptoms are unchanged. rn 16:24 14:11 06/24/2020 08:54 Hospitalization Ordered by Danis Bess MD for Inpatient bd Admission. Preliminary diagnosis is Weakness; Pneumonia, unspecified organism; Dizziness and giddiness; End stage renal disease. Bed requested for [facility] ER HOLD. Status is Inpatient Admission. Condition is Stable. Problem is new. Symptoms are unchanged. bd 17:30 16:24 06/24/2020 08:54 Hospitalization Ordered by Danis Bess MD for Inpatient ph Admission. Preliminary diagnosis is Weakness; Pneumonia, unspecified organism; Dizziness and giddiness; End stage renal disease. Bed requested for Telemetry/MedSurg (Inpatient). Status is Inpatient Admission. Condition is Stable. Problem is new. Symptoms are unchanged. bd
--- NOTE | 2020-06-24 08:54 | ER ---
Nurse's Notes [facility] Name: Alejandro Dunbar Age: 55 yrs Sex: Male : 1965 Arrival Date: 06/24/2020 Time: 06:24 Bed 18 Private MD: Diagnosis: Weakness;Pneumonia, unspecified organism;Dizziness and giddiness;End stage renal disease Presentation: 06/24 06:24 Chief complaint: EMS states: he was at [facility] for his dialysis this morning when mg2 he felt unwell, general body weakness, chest tingling, abdominal gurgling, slurred speech started 1 week ago.dialysis not started yet today. Coronavirus screen: Client denies travel out of the [place] in the last 14 days. Ebola Screen: No symptoms or risks identified at this time. Initial Sepsis Screen: Does the patient meet any 2 criteria? No. Patient's initial sepsis screen is negative. Does the patient have a suspected source of infection? No. Patient's initial sepsis screen is negative. Risk Assessment: Do you want to hurt yourself or someone else?. 06:24 Method Of Arrival: EMS: [place] [id number] 06:24 Acuity: KERRI 3 mg2 06:37 Onset of symptoms was June 24, 2020 at 05:45. mg2 Triage Assessment: 06:35 General: Appears in no apparent distress. comfortable, Behavior is calm, cooperative. mg2 Pain: Complains of pain in chest Pain does not radiate. Quality of pain is described as tingling, Pain began gradually, Is intermittent. EENT: No signs and/or symptoms were reported regarding the EENT system. Neuro: Level of Consciousness is awake, alert, obeys commands, Oriented to person, place, time, situation. Cardiovascular:. Respiratory: Reports shortness of breath at rest. GI: Reports abdominal problem. : No signs and/or symptoms were reported regarding the genitourinary system. Derm: Skin is intact, Skin is normal. Musculoskeletal: Circulation, motion, and sensation intact. Capillary refill < 3 seconds. Historical: - Allergies: 06:30 No Known Allergies; mg2 - PMHx: 06:30 Diabetes - NIDDM; Dialysis; High Cholesterol; Hypertension; Hypothyroidism; mg2 - Immunization history:: Flu vaccine status is unknown. - Social history:: Smoking status: Patient denies any tobacco usage or history of. Screenin:36 Abuse screen: Denies threats or abuse. Denies injuries from another. Nutritional mg2 screening: No deficits noted. Tuberculosis screening: No symptoms or risk factors identified. Fall Risk IV access (20 points). Assessment: 06:36 General: see triage assessment. mg2 07:30 Reassessment: Patient appears in no apparent distress at this time. Patient and/or ph family updated on plan of care and expected duration. Pain level reassessed. Pt asleep w/ snoring respirations, awakens easily, SpO2 noted to decrease to 88% while sleeping, placed on NC at 2L/min. 08:30 Reassessment: Patient appears in no apparent distress at this time. No changes from ph previously documented assessment. Patient and/or family updated on plan of care and expected duration. Pain level reassessed. 09:30 Reassessment: Patient appears in no apparent distress at this time. No changes from ph previously documented assessment. Patient and/or family updated on plan of care and expected duration. Pain level reassessed. Patient is alert, oriented x 3, equal unlabored respirations, skin warm/dry/pink. 10:30 Reassessment: Patient appears in no apparent distress at this time. No changes from ph previously documented assessment. Patient and/or family updated on plan of care and expected duration. Pain level reassessed. 11:30 Reassessment: Patient appears in no apparent distress at this time. No changes from ph previously documented assessment. Patient and/or family updated on plan of care and expected duration. Pain level reassessed. 13:15 Reassessment: Patient appears in no apparent distress at this time. Patient and/or ph family updated on plan of care and expected duration. Pain level reassessed. Patient is alert, oriented x 3, equal unlabored respirations, skin warm/dry/pink. Pt assisted to sit up in bed, currently eating lunch, tolerating well reports that dizziness has inmproved. 14:00 Reassessment: Patient appears in no apparent distress at this time. Patient and/or ph family updated on plan of care and expected duration. Pain level reassessed. Patient is alert, oriented x 3, equal unlabored respirations, skin warm/dry/pink. 15:00 Reassessment: Pt taken to dialysis by stretcher. ph Vital Signs: 06:24 BP 152 / 75; Pulse 65; Resp 17; Temp 98; Pulse Ox 98% on R/A; mg2 07:30 BP 139 / 85; Pulse 64; Resp 18; Pulse Ox 97% on 2 lpm NC; ph 08:30 BP 132 / 81; Pulse 63; Resp 16; Pulse Ox 96% on 2 lpm NC; ph 09:30 BP 140 / 81; Pulse 63; Resp 16; Pulse Ox 95% on 2 lpm NC; ph 10:30 BP 133 / 61; Pulse 64; Resp 16; Pulse Ox 100% on 2 lpm NC; ph 11:42 BP 133 / 61; Pulse 65; Resp 20; Pulse Ox 100% on 2 lpm NC; ph 12:30 BP 112 / 69; Pulse 63; Resp 18; Pulse Ox 98% on 2 lpm NC; ph 13:39 BP 127 / 86; Pulse 67; Resp 18; Pulse Ox 98% on 2 lpm NC; ph 14:30 BP 124 / 78; Pulse 68; Resp 18; Pulse Ox 97% on R/A; ph ED Course: 06:24 Patient arrived in ED. am2 06:24 Zohaib Tovar, RN is Primary Nurse. mg2 06:28 Triage completed. mg2 06:30 Arm band placed on. mg2 06:34 George Gonsalves MD is Attending Physician. mh7 06:36 Patient has correct armband on for positive identification. 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 Pulse mg2 ox on. NIBP on. Door closed. Warm blanket given. 06:37 No provider procedures requiring assistance completed. Inserted saline lock: 22 gauge mg2 in right antecubital area, using aseptic technique. Blood collected. by SANJAY alvarez. 07:07 XRAY Chest (1 view) In Process Unspecified. EDMS 07:17 Attending Physician role handed off by George Gonsalves MD rn 07:17 Tomas Cast MD is Attending Physician. rn 07:25 CT Head Brain wo Cont In Process Unspecified. EDMS 08:53 Danis Bess MD is Hospitalizing Provider. rn 17:30 Patient admitted, IV remains in place. ph Administered Medications: 08:00 Drug: Zofran (Ondansetron) 4 mg Route: IVP; Site: right antecubital; ph 18:20 Follow up: Response: No adverse reaction; Nausea is decreased ph 08:21 Drug: Meclizine 50 mg Route: PO; ph 09:00 Follow up: Response: No adverse reaction ph 10:00 Drug: Rocephin 1 grams Route: IV; Rate: calculated rate; Site: right antecubital; ph 11:15 Follow up: Response: No adverse reaction; IV Status: Completed infusion ph 11:41 Drug: Zithromax 500 mg Route: IVPB; Infused Over: 1 hrs; Site: right antecubital; ph 12:45 Follow up: Response: No adverse reaction; IV Status: Completed infusion; IV Intake: ph 250ml Intake: 12:45 IV: 250ml; Total: 250ml. ph Outcome: 08:54 Decision to Hospitalize by Provider. rn 17:30 Patient left the ED. ph 17:30 Admitted to Med/surg Other pt to be taken to second floor after dialysis complete ph 17:30 Condition: stable Signatures: Dispatcher [employer] EDTomas Fabian MD MD rn Hall, Patricia, RN RN ph Moreno, Amanda am2 Gardose, Michele, RN RN [facility] [place] George Gonsalves MD MD 7
--- NOTE | 2020-06-24 08:56 | RAD REPORT ---
EXAM DESCRIPTION: RAD - Chest Single View - 06/24/2020 7:07 am CLINICAL HISTORY: DYSPNEA Chest pain. COMPARISON: Chest Single View dated 06/19/2020; Chest Single View dated 06/16/2020; Chest Single View dated 04/22/2020; Chest Single View dated 11/18/2018 FINDINGS: Portable technique limits examination quality. The lungs are underinflated with vascular crowding. The heart is upper limit normal in size. Left-hilary ed venous catheter has its tip in the right atrium.
[2020-06-24] MEDS ORDERED: CEFTRIAXONE/SWI 1gm 1 GM/10 ML SYR ONE (09:54)
[2020-06-24] MEDS ORDERED: AZITHROMYCIN IV 500 MG in NA CHLORIDE 0.9% 250 ML IVPB ONE (10:00)
[2020-06-24] MEDS ORDERED: ONDANSETRON 4 MG/2 ML VIAL IV PRN (10:20)
[2020-06-24] MEDS ORDERED: MORPHINE 2 MG/ML SYR IV PRN (10:20)
[2020-06-24] MEDS ORDERED: ACETAMINOPHEN 500 MG TAB PO PRN (10:20)
[2020-06-24 10:25] LABS: SARS-COV-2 RT PCR NEGATIVE (NEGATIVE)
--- NOTE | 2020-06-24 22:33 | CON ---
Date of Consultation: 06/24/2020 Chief Complaint: End-stage renal disease, shortness of breath, and generalized weakness. History Of Present Illness: The patient is a 55-year-old man presented to emergency room via EMS wit h complaint of generalized weakness, dizziness, shortness of breath, nonspecific epigastric pain, [place], and vomiting. He denies blurred vision, confusion, diaphoresis, agitation, or focal weakness. At this point, he denies abdominal pain or chest pain. Denies syncope or seizure. Denies melena or hematemesis. The patient was in usual state of health at home this morning. Subsequently, he went t o the dialysis center, but dialysis was not done because the patient was complaining of multiple symp toms, including dizziness, sense of spinning, and nausea. Review of Systems: Constitutional: Denies fever or chills. Eyes: Denies new vision changes. Ears, Nose, Mouth, and Throat: Denies sore throat or earache. Respiratory: Shortness of breath with activities. Denies PND or orthopnea. Cardiovascular: Denies palpitation or syncope. GI: He has nausea and vomiting. Denies melena or hematemesis. : Denies dysuria or hematuria. Neurological: He was complaining of sense of feeling dizziness, lack of balance. All other systems reviewed and all are negative. Past Medical History: Hypertension, hypothyroidism, end-stage renal disease, diabetic kidney disease , peripheral neuropathy, diabetic retinopathy, nephropathy, history of proteinuria. Social History: Denies tobacco, alcohol, or illicit drugs. Family History: No kidney disease in the family. Physical Examination: General: The patient is awake, alert, follows commands. Eyes: Anicteric sclerae. EOMI. Ears, Nose, Mouth, and Throat: Oral mucosa moist. No pallor. Neck: Supple. No bruits. Lungs: Diminished breath sounds at bases. Few crackles. Heart: S1, S2. Abdomen: Soft, obese, nontender. No rebound. No guarding. Extremities: Some edema present in both legs. Neurological: Moving extremities. Cranial nerves intact. No tremors. Skin: Warm and dry. No skin rashes. Vital Signs: Blood pressure 153/61, heart disease 65, respiratory rate 20, SpO2 100% on 2 L nasal ca nnula. Laboratory Data: Sodium 155, potassium 4.0, chloride 98, CO2 23, BUN 56, creatinine 11.1, glucose 18 9, magnesium 2.1, albumin 4.4, total protein 8.9. Procalcitonin 0.32. Troponin 0.02. Hemoglobin 11 .6, WBC 8, platelet count 267,000. Chest x-ray showed lungs inflated with vascular crowding, left-si ded venous catheter has its tip at the right atrium. Impression And Plan: 1.End-stage renal disease. The patient was complaining of nausea, vomiting, and dizziness. The pat ient is admitted to the hospital for possible pneumonia. Recommend to check blood cultures. 2.The patient is dialysis dependent. Dialysis will be done to obtain negative fluid balance and to control fluid overload. 3.The patient has some peripheral edema. Chest x-ray did not show overt congestive heart failure. The patient although has hypertensive heart and kidney disease, diabetic kidney disease. Continue bl ood pressure medication. 4.Workup will be started to rule out COVID infection and influenza. 5.Renal osteodystrophy. Continue renal diet and binders. 6.Anemia. Hemoglobin level is satisfactory. Monitor hemoglobin level. EB/MODL Voice ID: [id number] Report ID: [id number]
[2020-06-25 05:50] LABS: Absolute Lymphocytes (CBC) 0.9 K/uL (0.7-4.9); Basophils % 1.4 % (0-1.3); Hematocrit 34.9 % (39.6-49.0); Lymphocytes % 13.9 % (15.3-44.8); MPV 7.7 fL (7.6-11.3); RBC Red Blood Cell Count 3.66 M/uL (4.33-5.43)
[2020-06-25 06:11] LABS: Albumin 4.1 g/dL (3.4-5.0); Bilirubin Total 0.3 mg/dL (0.2-1.0); Phosphorus 4.8 mg/dL (2.5-4.9); Protein, Total 8.7 g/dL (6.4-8.2)
[2020-06-25 06:12] LABS: Magnesium 2.2 mg/dL (1.8-2.4); Potassium 4.2 mmol/L (3.5-5.1)
[2020-06-25 06:18] LABS: Protime INR 0.94
--- NOTE | 2020-06-25 09:01 | RAD REPORT ---
EXAM DESCRIPTION: Phil Single View06/25/2020 5:10 am CLINICAL HISTORY: Chest pain COMPARISON: June 24 FINDINGS: Patient is in a poor degree of inspiration. A few areas of subsegmental atelectasis are p resent the lung bases. Upper lobes appear clear Heart remains enlarged.
[2020-06-25] MEDS ORDERED: VANCOMYCIN/NS 1 gm 1 GM/250 ML BAG IVPB SCH (10:00)
[2020-06-25] MEDS ORDERED: BISACODYL E.C. 5 MG TAB PO ONE (16:00)
--- NOTE | 2020-06-26 00:04 | EKG ---
Test Date: 2020-06-24 Test Time: 06:30:57 Reel Operator: RAHAT MEASUREMENT RESULTS: Intervals: Rate: 64 MT: 180 QRSD: 90 QT: 432 QTc: 445 Bayard: P: 37 MT: 180 QRS: 62 T: 152 INTERPRETIVE STATEMENTS: Normal sinus rhythm Nonspecific ST and T wave abnormality Abnormal ECG Compared to ECG 06/16/2020 09:19:17 ST (T wave) deviation now present Myocardial infarct finding no longer present Electronically Signed On 06-25-20 23:59:03 BPM ANALYST by Christopher Roblero
--- NOTE | 2020-06-26 02:08 | PN ---
Date of Progress Note: 06/25/2020 Subjective: The patient was admitted with weakness. The patient is complaining from jerk movement, involuntary spasm on the right upper extremity. Physical Examination: Vital Signs: When I saw the patient, blood pressure 137/76, pulse of 70, afebrile. Chest: Clear to auscultation. Heart: S1, S2. Regular. Abdomen: Soft, nontender. Extremities: No edema. Neurologic: No focality. Laboratory Data: WBC 6.6, H and H 11.8/34.9. Sodium 137, potassium 4.2, bicarb 25, BUN 31, creatinine 8.8, calcium 8.4, phosphorus 4.8. Current Medications: The patient on include azithromycin, vancomycin, Zofran, bisacodyl, morphine. Assessment And Plan: 1. End-stage renal disease. We will continue the patient on dialysis. The patient is going to be scheduled for dialysis tomorrow. 2. Secondary hyperparathyroidism. Continue to monitor. I am going to check for his phosphorous. 3. Hypertension, controlled, optimal. Continue current medication. 4. Anemia of chronic kidney disease. No need for SUMIT. 5. Muscular spasm. I going to dialyze the patient on a low sodium bath and I am going to keep holding Epogen. We will consult Neurology. Time spent discussing with the patient, examining the patient, exam [id number], placing order, discussing with staff and other consulting include Primary 45 minutes. JESUS Voice ID: [id number] Report ID: [id number] EFREN
[2020-06-26 04:31] VITALS: O2SAT 95
[2020-06-26 06:24] LABS: Albumin 4.2 g/dL (3.4-5.0); Magnesium 2.2 mg/dL (1.8-2.4); Phosphorus 7.4 mg/dL (2.5-4.9); Potassium 4.5 mmol/L (3.5-5.1)
[2020-06-26] MEDS ORDERED: HYDROCODONE/APAP 10/325 TAB PO PRN (09:19)
[2020-06-26] MEDS ORDERED: ALBUTEROL INHALER 60 PUFF/8 GM IH PRN (09:19)
--- NOTE | 2020-06-26 09:27 | P.HP ---
Certification for Inpatient Patient admitted to: Inpatient With expected LOS: >2 Midnights Patient will require the following post-hospital care: None Practitioner: I am a practitioner with admitting privileges, knowledge of patient current condition, hospital course, and medical plan of care. Services: Services provided to patient in accordance with Admission requirements found in Title 42 Section 412.3 of the Code of Federal Regulations Patient History Date of Service: 06/24/20 Reason for admission: SHORTNESS OF BREATH/VOLUME OVERLOAD History of Present Illness: PATIENT IS A 55-YEAR-OLD GENTLEMAN CAME TO THE HOSPITAL WITH SHORTNESS OF BREATH. PATIENT HAS HISTORY OF ESRD AND GOES TO DIALYSIS ON Wednesday AND FRIDAYS. HE HAS NOT MISSED ANY SESSIONS BUT HE HAS NOT FOUND AN COMPLETE DIALYSIS SESSION BECAUSE OF THE ISSUES WITH THE OF WATER IN THE AREA. PATIENT CAME TO THE HOSPITAL BECAUSE OF THE SHORTNESS OF BREATH. INCIDENTALLY HE WAS ALSO FOUND TO BE BACTEREMIC. AT THIS TIME, HE WILL BE ADMITTED TO THE HOSPITAL FOR HEMODIALYSIS. WILL ALSO WAIT FOR CULTURE RESULTS. OTHERWISE, PATIENT WITH NO NEW COMPLAINTS. WITH HIS BACTEREMIA HE WILL BE ADMITTED FOR INPATIENT HOSPITALIZATION. Allergies No Known Allergies Allergy (Verified 06/16/20 13:22) Home Medications: Albuterol Sulfate [Proair Hfa] 2 puff IH Q4HP PRN 06/25/20 Ergocalciferol (Vitamin D2) [Vitamin D2] 50,000 unit PO SEECOM 06/25/20 Fluticasone [Flonase 50MCG Nasal [place]*] 1 puff IH DAILY 06/25/20 Hydrocodone/Acetaminophen [Hydrocodone-Acetamin 10-325 mg] 1 tab PO Q6HP PRN 06/25/20 Levothyroxine [Synthroid*] 1 tab PO [id number] 06/25/20 Sevelamer Carbonate 1 tab PO TIDWM 06/25/20 levoFLOXacin [Levaquin] 500 mg PO AFTER EACH DIALYSIS #7 tab 06/26/20 - Past Medical/Surgical History Diabetic: Yes -: hypertension -: hypothyroid -: TYPE 2 DIABETES -: Dyslipidemia Past Surgical History: Patient denies surgical history - Family History Sister Medical History: Diabetes - Social History Alcohol use: No CD- Drugs: No Caffeine use: Yes Review of Systems 10-point ROS is otherwise unremarkable Physical Examination - Vital Signs Temperature: 99.6 F Blood Pressure: 109/58 Pulse: 105 Respirations: 18 Pulse Ox (%): 96 - Physical Exam General: Alert, In no apparent distress, Oriented x3 HEENT: Atraumatic, PERRLA, Mucous membr. moist/pink, EOMI, Sclerae nonicteric Neck: Supple, 2+ carotid pulse no bruit, No LAD, Without JVD or thyroid abnormality Respiratory: Clear to auscultation bilaterally, Normal air movement Cardiovascular: Regular rate/rhythm, Normal S1 S2, No murmurs Gastrointestinal: Normal bowel sounds, Soft and benign, Non-distended, No tenderness Musculoskeletal: No clubbing, No swelling, No tenderness Integumentary: No rashes Neurological: Normal gait, Normal speech, Normal strength at 5/5 x4 extr, Normal tone, Sensation intact, Cranial nerves 3-12 intact, Normal affect Lymphatics: No axilla or inguinal lymphadenopathy - Studies Microbiology Data (last 24 hrs): 06/24/20 08:15 Blood - Blood Blood Culture Gram Stain - Final 06/24/20 08:15 Blood - Blood Gram Stain - Final 06/24/20 08:00 Blood - Blood Blood Culture Gram Stain - Final 06/24/20 08:00 Blood - Blood Gram Stain - Final Assessment & Plan - Problems (Diagnosis) (1) Volume overload Current Visit: Yes Status: Acute (2) Bacteremia Current Visit: Yes Status: Acute (3) DM type 2 (diabetes mellitus, type 2) Current Visit: No Status: Acute (4) ESRD (end stage renal disease) on dialysis Current Visit: No Status: Acute (5) Hypothyroidism Current Visit: No Status: Acute - Plan Plan: 1. Hemodialysis per Nephrology 2. Will try IV Lasix pending dialysis 3. IV antibiotics 4. Monitor hemodynamics closely 5. Monitor electrolytes 6. Strict blood pressure and blood sugar control 7. GI and DVT prophylaxis Discharge Plan: Home Plan to discharge in: Greater than 2 days - Advance Directives Does patient have a Living Will: No Does patient have a Durable POA for Healthcare: No - Code Status/Comfort Care Code Status Assessed: Yes Code Status: Full Code Critical Care: No Time Spent Managing PTS Care (In Minutes): 45
--- NOTE | 2020-06-26 09:28 | P.PN ---
Subjective Date of Service: 06/25/20 Patient feeling better with no new complaints. Shortness of breath is improved. Patient still having some complaints of a sore throat. Continue antibiotics and maybe give a dose of IV steroids. Review of Systems 10-point ROS is otherwise unremarkable Physical Examination - Vital Signs Temperature: 99.6 F Blood Pressure: 109/58 Pulse: 105 Respirations: 18 Pulse Ox (%): 96 - Physical Exam General: Alert, In no apparent distress, Oriented x3 Respiratory: Clear to auscultation bilaterally, Normal air movement Cardiovascular: Regular rate/rhythm, Normal S1 S2, No murmurs Gastrointestinal: Normal bowel sounds, Soft and benign, Non-distended, No tenderness Musculoskeletal: No clubbing, No swelling, No tenderness Neurological: Normal speech, Normal tone, Normal affect Lymphatics: No axilla or inguinal lymphadenopathy - Studies Microbiology Data (last 24 hrs): 06/24/20 08:15 Blood - Blood Blood Culture Gram Stain - Final 06/24/20 08:15 Blood - Blood Gram Stain - Final 06/24/20 08:00 Blood - Blood Blood Culture Gram Stain - Final 06/24/20 08:00 Blood - Blood Gram Stain - Final Medications List Reviewed: Yes Assessment & Plan - Problems (Diagnosis) (1) Volume overload Current Visit: Yes Status: Acute (2) Bacteremia Current Visit: Yes Status: Acute (3) DM type 2 (diabetes mellitus, type 2) Current Visit: No Status: Acute (4) ESRD (end stage renal disease) on dialysis Current Visit: No Status: Acute (5) Hypothyroidism Current Visit: No Status: Acute - Plan Plan: Continue with plan of care as mentioned below: 1. Hemodialysis per Nephrology 2. Will try IV Lasix pending dialysis 3. IV antibiotics 4. Monitor hemodynamics closely 5. Monitor electrolytes 6. Strict blood pressure and blood sugar control 7. GI and DVT prophylaxis Discharge Plan: Home Plan to discharge in: Greater than 2 days - Advance Directives Does patient have a Living Will: No Does patient have a Durable POA for Healthcare: No - Code Status/Comfort Care Code Status: Full Code Critical Care: No Time Spent Managing PTS Care (In Minutes): 35
--- NOTE | 2020-06-26 09:28 | P.DS ---
Discharge Date: 06/26/20 Disposition: ROUTINE DISCHARGE Discharge Condition: GOOD Reason for Admission: SHORTNESS OF BREATH/VOLUME OVERLOAD - Problems (1) Volume overload Status: Acute (2) Bacteremia Status: Acute (3) DM type 2 (diabetes mellitus, type 2) Status: Acute (4) ESRD (end stage renal disease) on dialysis Status: Acute (5) Hypothyroidism Status: Acute Brief History of Present Illness: PATIENT IS A 55-YEAR-OLD GENTLEMAN CAME TO THE HOSPITAL WITH SHORTNESS OF BREATH. PATIENT HAS HISTORY OF ESRD AND GOES TO DIALYSIS ON Wednesday AND FRIDAYS. HE HAS NOT MISSED ANY SESSIONS BUT HE HAS NOT FOUND AN COMPLETE DIALYSIS SESSION BECAUSE OF THE ISSUES WITH THE OF WATER IN THE AREA. PATIENT CAME TO THE HOSPITAL BECAUSE OF THE SHORTNESS OF BREATH. INCIDENTALLY HE WAS ALSO FOUND TO BE BACTEREMIC. AT THIS TIME, HE WILL BE ADMITTED TO THE HOSPITAL FOR HEMODIALYSIS. WILL ALSO WAIT FOR CULTURE RESULTS. OTHERWISE, PATIENT WITH NO NEW COMPLAINTS. WITH HIS BACTEREMIA HE WILL BE ADMITTED FOR INPATIENT HOSPITALIZATION. Hospital Course: After hemodialysis was completed patient's respiratory status has stabilized. Patient clinically is doing much better. At this time, patient is stable for [facility] with outpatient follow up. Vital Signs/Physical Exam: Temp Pulse Resp BP Pulse Ox 99.6 F 105 H 18 109/58 L 96 06/26/20 09:28 06/26/20 09:28 06/26/20 09:28 06/26/20 09:28 06/26/20 09:28 General: Alert, In no apparent distress, Oriented x3 Laboratory Data at Discharge: WBC 6.60 K/uL (4.3-10.9) D 06/25/20 05:34 Hgb 11.8 g/dL (13.6-17.9) L 06/25/20 05:34 Hct 34.9 % (39.6-49.0) L 06/25/20 05:34 Plt Count 252 K/uL (152-406) 06/25/20 05:34 PT 10.8 SECONDS (9.5-12.5) 06/25/20 05:34 INR 0.94 06/25/20 05:34 APTT 28.1 SECONDS (24.3-36.9) 06/25/20 05:34 Sodium 135 mmol/L (136-145) L 06/26/20 05:29 Potassium 4.5 mmol/L (3.5-5.1) 06/26/20 05:29 BUN 47 mg/dL (7-18) H 06/26/20 05:29 Creatinine 10.90 mg/dL (0.55-1.3) H* D 06/26/20 05:29 Glucose 120 mg/dL (74-106) H 06/26/20 05:29 Phosphorus 7.4 mg/dL (2.5-4.9) H D 06/26/20 05:29 Magnesium 2.2 mg/dL (1.8-2.4) 06/26/20 05:29 Total Bilirubin 0.3 mg/dL (0.2-1.0) 06/25/20 05:34 AST 26 U/L (15-37) 06/25/20 05:34 ALT 19 U/L (12-78) 06/25/20 05:34 Alkaline Phosphatase 62 U/L (45-117) 06/25/20 05:34 Home Medications: Albuterol Sulfate [Proair Hfa] 2 puff IH Q4HP PRN 06/25/20 Ergocalciferol (Vitamin D2) [Vitamin D2] 50,000 unit PO SEECOM 06/25/20 Fluticasone [Flonase 50MCG Nasal [place]*] 1 puff IH DAILY 06/25/20 Hydrocodone/Acetaminophen [Hydrocodone-Acetamin 10-325 mg] 1 tab PO Q6HP PRN 06/25/20 Levothyroxine [Synthroid*] 1 tab PO [id number] 06/25/20 Sevelamer Carbonate 1 tab PO TIDWM 06/25/20 levoFLOXacin [Levaquin] 500 mg PO AFTER EACH DIALYSIS #7 tab 06/26/20 New Medications: levoFLOXacin [Levaquin] 500 mg PO AFTER EACH DIALYSIS #7 tab Physician Discharge Instructions: OK TO DC IV AND DC HOME AFTER HEMODIALYSIS FOLLOW-UP WITH PRIMARY CARE PROVIDER IN 1-2 WEEKS FOLLOW-UP WITH CARDIOLOGY IN 1-2 WEEKS FOLLOW-UP WITH NEPHROLOGY IN 1-2 WEEKS RETURN TO THE ER IF SYMPTOMS WORSEN CALL or TEXT DR. SHEEHAN AT [phone] IF ANY QUESTIONS REGARDING HOSPITAL STAY. PLEASE CALL THE FLOOR AT [phone] IF ANY MEDICATION OR NURSING QUESTIONS. Diet: Renal Activity: Fall precautions Followup: Sharon Boss MD [ACTIVE - CAN ADMIT] - Christopher Roblero MD [ACTIVE - CAN ADMIT] - NONE,NONE [Primary Care Provider] -
[2020-06-26] MEDS ORDERED: DRISDOL (VITAMIN D=ERGOCALCIFEROL) 50000 UNIT CAP PO SCH (10:00)
[2020-06-26 11:08] VITALS: BMI 28.6
[2020-06-26] MEDS ORDERED: SEVELAMER CARBONATE 800 MG TABLET PO SCH (12:00)
--- NOTE | 2020-06-26 13:55 | PN ---
Date of Progress Note: 06/26/2020 Subjective: The patient was admitted with fatigue. The patient had abnormal jerk movement on the left upper extremity. No nausea. No vomiting. Physical Examination: Vital Signs: When I saw the patient; blood pressure 109/58, pulse of 100, afebrile. Chest: Clear to auscultation. Heart: S1, S2. Systolic murmur. Abdomen: Soft, nontender. Extremities: Trace edema. Neurologic: Alert, oriented. No focality. Laboratory Data: WBC 6.6, H and H 11.8/34.9. Sodium 135, potassium 4.5, bicarb 24, BUN 47, creatinine 10, calcium 8.4, phosphorus 7.4, magnesium 2.2. Current Medications: The patient on include aspirin, Renvela, Tylenol, heparin, vancomycin, Bisacodyl, hydrocodone. Assessment And Plan: 1. End-stage renal disease. We will continue the patient on dialysis. The patient is due for dialysis today as his schedule, status post dialysis also yesterday. 2. Hypertension, controlled, optimal. Keep holding the blood pressure medication. 3. Secondary hyperparathyroidism. Continue binder. 4. Anemia of chronic kidney disease. No need for SUMIT. 5. Jerk movement on the left arm. We will follow up with Neurology. 6. Diabetes, as by primary. Time spent discussing with the patient, examining the patient, exam [id number], placing order, discussing with staff and other consulting include Primary 45 minutes. JESUS Voice ID: [id number] Report ID: [id number]
[2020-06-26 16:53] VITALS: BP 125/84; TEMP 98.4
[2020-06-27] MEDS ORDERED: LEVOTHYROXINE SOD 0.075 MG TAB PO SCH (06:00)
[2020-06-27] MEDS ORDERED: FLUTICASONE IH SCH (09:00)
== END 2020-06-26 16:46 | disposition home or self-care (01) | DRG 640 ==
LOC: ER 06:23 → ERHOLD 10:56 → 2ND 17:20 → OBSVTOIN 06-25 09:04
PROVIDERS: ADMIT Hospitalist; ATTEND Hospitalist
PROC: 5A1D70Z Performance of Urinary Filtration, Intermittent, Less than 6 Hours Per Day (ICD-10-PCS; principal; 2020-06-25)
DX: E87.70 Fluid overload, unspecified (principal); N18.6 End stage renal disease; I12.0 Hypertensive chronic kidney disease with stage 5 chronic kidney disease or end stage renal disease; R78.81 Bacteremia; N25.81 Secondary hyperparathyroidism of renal origin; E11.22 Type 2 diabetes mellitus with diabetic chronic kidney disease; E78.5 Hyperlipidemia, unspecified; N25.0 Renal osteodystrophy; D63.1 Anemia in chronic kidney disease; M62.838 Other muscle spasm; E03.9 Hypothyroidism, unspecified; G25.3 Myoclonus; Z79.890 Hormone replacement therapy; Z99.2 Dependence on renal dialysis; Z20.822 Contact with and (suspected) exposure to COVID-19
CPT/HCPCS: 0240U; 36415; 70450; 71045; 80048; 80053; 80069; 80076; 82550; 82947; 83735; 83880; 84100; 84145; 84484; 85025; 85610; 85730; 87040; 87077; 87186; 87205; 90935; 93005; 96365; 96367; 96375; 99285; G0378; J0456; J0696; J1644; J2405; J3370; J7050

== ENCOUNTER 2020-11-23 13:56 | Emergency (ER) | payer OTHER ==
--- OUTSIDE RECORDS SUMMARY | 2020-11-23 14:01 | XMS REPORT | Continuity of Care Document ---
:1965 Author Organization [facility] t Address [address] [place] [address] Care Team Providers Name Role Phone Asked, Pcp Primary Care Physician Unavailable Benedict HUDDLESTON, H Attending Clinician Doctor Unassigned, Name Attending Clinician Unavailable Bandar HUDDLESTON Attending Clinician Flory Scales Attending Clinician Unavailable Maikel GRACE, Y Attending Clinician Unavailable Elise HUDDLESTON Attending Clinician Sabi GRACE Attending Clinician Unavailable ELISE Attending Clinician Unavailable NORA NIELSON Attending Clinician Unavailable ELISE Admitting Clinician Unavailable Payers Payer Name Policy Type Policy Effective Date Expiration Date Sour ce Number MEDICAREMEDICARE A [id number] 2018 BRITT Gutierrez [id number] 00:00:00 - [facility] Problems Condition Condition Condition Status Onset Resolution Last Treating Co mments Source Name Details Category Date Date Treatment Clinician Date Volume Volume Disease Active 2019- [facility] - 00:[facility]: Medical 00 [place] Groin Groin Disease Active 2020-[address] [facility] pain, pain, 12-14 [facility] - chronic, chronic, 00:00: Medica l right right 00 Center Pre-transp Pre-transp Disease Active 2019-[address] lant lant 12-13 [facility] - evaluation evaluation 00:00: Me dical for ESRD for ESRD 00 Center (end stage (end stage renal renal disease) disease) ESRD (end ESRD (end Disease Active 2020- [facility] stage stage 3-12 [facility] - [...] Date Source Natural brother No Known Problem [facility] Natural father Alcohol abuse [facility] Natural mother No Known Problem [facility] Natural sister Diabetes [facility] Natural sister Kidney disease [facility] Natural sister No Known Problem [facility] Social History Social Habit Start Date Stop Date Quantity Comments Source History of tobacco Current smoker I [facility] History SDOH [facility] - Alcohol Std Drinks Medica l [place] History SDOH [facility] - Alcohol Binge Medical [facility] Sex Assigned At [facility] Cigarettes smoked 2019-12-17 2019-12-[address] [facility] - current (pack per 00:00:00 00:00:00 Medical Center day) - Reported Cigarette 2019-12-17 2019-12-[address] [facility] - pack-years 00:00:00 00:00:00 [facility] Tobacco use and 2019-12-17 2019-12-17 Never used [facility] - exposure 00:00:00 00:00:00 [facility] Alcohol intake 2019-12-17 2019-12-17 Current [facility] 00:00:00 non-drinker of Medical Ce nter alcohol (finding) History SDOH 2019-05-23 2019-05-[address] [facility] - Alcohol Frequency 00:00:00 00:00:00 [facility] Smoking Status Start Date Stop Date Source Former smoker 2019-12-17 00:00:00 2019-12-17 00:00:[address] [facility] Medications Ordered Filled Start Stop Current Ordering Indication Dosage Frequency Signature Comments Components Source Medication Medication Date Date Medication? Clinician (SIG) Name Name lovastatin Yes 10mg QD Take [address] (MEVACOR) 8-15 by mouth [facility] - 10 MG 17:30: nightly. Medical tablet 21 [place] calcium Yes 3{tbl} Q.47607302 Take [address] carbonate 8-15 [id number] tablets by [facility] - (TUMS) 500 17:30: 3D mouth 3 Medi benjy mg chewable 21 (three) Cente r tablet times daily. furosemide Yes 20mg QD Take [address] (LASIX) 20 8-15 by mouth [facility] - MG tablet 17:30: daily. Medica l 21 Center cyclobenzap Yes 1{tbl} QD Take [address] rine 8-04 tablet by [facility] - (FLEXERIL) 00:00: mouth Medica l 10 MG 00 daily. [place] tablet ergocalcife Yes 1{capsu Q7D Take 1 [...] MG 00:00: mouth Medical tablet 00 daily. [place] amLODIPine Yes 10mg QD Take [address] (NORVASC) 1-16 by mouth [facility] - 10 MG 00:00: daily . Medical tablet 00 [place] sevelamer Yes 800mg Q.34151789 [address] (RENVELA) 1-10 [id number] (three) L ukes - 800 mg 00:00: 3D times Medical tablet 00 daily . [place] UNITHROID Yes 125ug QD Take [address] 125 mcg 1-10 mcg by [facility] - tablet 00:00: mouth Medical 00 nightly . [place] amLODIPine Yes 10mg QD Take 10 mg [...] Source Systolic blood 2019-12-16 13:25:00 142 mm[Hg] [facility] pressure [facility] Diastolic blood 2019-12-16 13:25:00 80 mm[Hg] [facility] S t [facility] Heart rate 2019-12-16 13:25:00 76 /min [facility] Body temperature 2019-12-16 13:25:00 36.56 Maureen [facility] Respiratory rate 2019-12-16 13:25:00 16 /min [facility] Oxygen saturation in 2019-12-16 13:25:00 96 /min [facility] Arterial blood by Medical Ce nter Pulse oximetry Body weight 2019-12-16 12:00:00 76.4 kg [facility] BMI 2019-12-16 12:00:00 28.91 kg/m2 [facility] Body height 2019-12-14 08:59:00 162.6 cm [facility] Procedures Procedure Date / Time Performed Performing Clinician Netta ugalde VASCULAR DIAGRAM -SCAN 2019-12-21 12:53:32 Provider, [facility] VASCULAR DIAGRAM -SCAN 2019-12-21 12:53:28 Provider, [facility] REPORT OF PROCEDURE - 2019-12-19 14:40:39 Provider, [facility] - ENDOSCOPY SCAN [facility] RHYTHM STRIP - SCAN 2019-12-19 14:40:36 Provider, [facility] VASCULAR DIAGRAM -SCAN 2019-12-19 14:40:32 Provider, [facility] CARDIAC CATH REPORT - 2019-12-19 14:40:30 Provider, [facility] HEMODIALYSIS INPATIENT 2019-12-16 10:30:00 Patience Nielson [facility] (MANUAL DIFFERENTIAL) 2019-12-16 09:20:00 Sammy Blanco [facility] HEPATITIS B SURFACE 2019-12-16 08:36:00 Patience Nielson [facility] ANTIGEN [facility] CBC W/PLT+MANUAL DIFF 2019-12-16 04:16:00 Edward, [facility] BASIC METABOLIC PANEL 2019-12-16 04:16:00 Edward, [facility] - (7) [facility] PHOSPHORUS 2019-12-16 04:16:00 Edward, [facility] CBC WITH PLATELET COUNT 2019-12-16 04:16:00 Edward, [facility] - + MANUAL DIFF [facility] (CELLAVISION MANUAL 2019-12-16 04:16:00 Edward, [facility] - DIFF) [facility] CBC W/PLT COUNT & AUTO 2019-12-15 02:32:00 Edward, [facility] S t [facility] - DIFFERENTIAL [facility] BASIC METABOLIC PANEL 2019-12-15 02:32:00 Edward, [facility] - (7) [facility] PHOSPHORUS 2019-12-15 02:32:00 Edward, [facility] ARTERIAL DOPPLER LEG, 2019-12-15 02:25:00 Edward, [facility] - RIGHT [facility] R & L CATH / CORONARY 2019-12-14 13:07:00 Alam, [facility] - ANGIOS / PCI Medical Center ABD AO & LOWER EXT 2019-12-14 13:07:00 Alam, [facility] kes - ANGIOS/ POSS PPI [facility] CBC (HEMOGRAM ONLY) 2019-12-14 09:24:00 Edward, [facility] ukes [facility] BASIC METABOLIC PANEL 2019-12-14 09:24:00 Edward, [facility] (7) [facility] PROTHROMBIN TIME/INR 2019-12-14 09:24:00 Edward, [facility] SARS-COV2/RT-PCR ([facility] & 2019-12-14 08:40:00 Alam, [facility] - REF LABS) [facility] ECG 12-LEAD 2019-12-14 08:07:50 Edward, [facility] Plan of Care Planned Activity Planned Date Details Comments Source Future Scheduled 2022-07-[address] - Test 00:00:00 (procedure) [code = [facility] 82668009] Future Scheduled 2021-01-01 INFLUENZA VACCINE (#1) [facility] - Test 00:00:00 [code = INFLUENZA Medical Ce nter VACCINE (#1)] Future Scheduled 2020-12-01 INFLUENZA VACCINE [place] [facility] 00:00:00 [code = INFLUENZA VACCINE] Future Scheduled 2020-05-[address] [facility] - Test 00:00:00 (12+) [code = Medical Center DEPRESSION SCREENING (12+)] Future Scheduled 2020-01-[address] [facility] - Test 00:00:00 measurement Medical Center (procedure) [code = 83855053] Future Scheduled 2019-11-[address] [...] Future Scheduled 2015 COLONOSCOPY SCREENING [place] [facility] 00:00:00 [code = COLONOSCOPY SCREENING] Future Scheduled 2015 SHINGLES VACCINES (#1) [place] [facility] 00:00:00 [code = SHINGLES VACCINES (#1)] Future Scheduled 2015 SHINGLES VACCINES ([address] [facility] - Test 00:00:00 of 2) [code = SHINGLES Medic al Center VACCINES (1 of 2)] Future Scheduled 1984 DTAP/TDAP/TD VACCINES [facility] - Test 00:00:00 (1 - Tdap) [code = Medical C enter DTAP/TDAP/TD VACCINES (1 - Tdap)] Future Scheduled 1983 Hepatitis C screening [place] [facility] Test 00:00:00 (procedure) [code = 228261819] Future Scheduled 1977 COVID-19 VACCINE (1) [facility] Test 00:00:00 [code = COVID-19 VACCINE (1)] Future Scheduled 1977 COVID-19 VACCINE (1) [facility] - Test 00:00:00 [code = COVID-[address] VACCINE (1)] Future Scheduled [address] EYE EXAM [facility] - Test 00:00:00 [code = DIABETIC EYE Medical Center EXAM] Future Scheduled [address] [facility] - Test 00:00:00 examination Medical Center (regime/therapy) [code = 662792997] Future Scheduled 1975 Urine screening for [facility] - Test 00:00:00 protein (procedure) Medical Center [code = 211896027] Future Scheduled [address] - Test 00:00:00 malignant neoplasm of Medica l Center colon (procedure) [code = 846508810] Encounters Start End Encounter Admission Attending Care Care Encounter Source Date/Time Date/Time Type Type Clinicians Facility Department ID 2020-10-08 2020-10-08 Telephone Benedict [facility] [id number] 00:00:00 00:00:00 Sam Doherty [id number] [place] 4.2.7.2.686 [facility] [id number] [facility] 220 [facility] 2020-10-07 2020-10-07 Orders Doctor BRIANNE [id number] 00:00:00 00:00:00 Only Unassigned, RONNY 350.1.13.10 [place] [facility] 4.2.7.2.686 [id number] 2020-08-20 2020-08-20 Office Bandar [facility] [id number] 13:15:09 13:42:21 Visit Dean Doherty [id number] [place] 4.2.7.2.686 [facility] [id number] [address] Results Test Description Test Time Test Comments [...] Morphology (test code = 762) Normal [facility](MANUAL DIFFERENTIAL)2019-12-16 12:27:00 Test Item Value Reference Range [...] (BEAKER) (test code = Normal 762) HEMODIALYSIS [id number] 10:30:00PerCelestine gao III, MD 12/16/2019 [facility] 12/16/2019I have personallyseen and examined Alejandro Dunbra on hemodialysisIndication :ESRDPrescription: F160, 3-4 hrs, 2.0K, 2.5 Ca, UF2-3 L as tolReason for exam: BP fluctuation & adjust dry weightTolerating dialysis ok Celestine Luu III, MD12/16/2019[facility] B surface [id number] 09:48:00 Test Item Value Reference Range Interpretation Comments HBsAg Screen (test code Nonreactive Nonreactive = 5195-3) LOVE (test code = LOVE) Specimen is considered negative for HBsAg. Lab Interpretation (test Normal code = 42406-2) [facility] B SURFACE [id number] 09:48:00 Test Item Value Reference Range Interpretation Comments HEPATITIS B SURFACE ANTIGEN (2) Nonreactive Nonreactive (BEAKER) (test code = 2585) Specimen is considered negative for HBsAg.Manual [id number] 08:57:00 Test Item Value Reference Range Interpretation [...] few Lab Interpretation (test code = Abnormal 38337-0) [facility](CELLAVISION MANUAL DIFF)2019-12-16 08:57:00 Test Item Value Reference [...] (BEAKER) (test code = 1+ few 966) [id number] 05:55:00 Test Item Value Reference Range Interpretation Comments Phosphorus (test code = 9.2 mg/dL 2.3-4.7 HH 2777-1) LOVE (test code = LOVE) Strickler Attendant ALEXANDER - RA Lab Interpretation (test Abnormal code = 92582-8) [facility] 05:55:00 Test Item Value Reference Range Interpretation Comments PHOSPHORUS (BEAKER) (test code = 9.2 mg/dL 2.3-4.7 HH 604) Strickler Attendant ID - [facility] Metabolic [id number] 05:04:00 Test Item Value Reference Range Interpretation [...] Calcium (test code = 9.4 mg/dL 8.4-10.2 52579-5) EGFR (test code = 4 mL/min/1.73 [place] [address]-0) NOT ACCURATE CREATININE CLEARANCE IN PREDICTING GLOMERULAR FILTRATION RATE . ESTIMATED GFR I S NOT APPLICABLE FOR DIALYSIS PATIENTS. LOVE (test code = LOVE) Strickler Attendant ID - RA Lab Interpretation Abnormal (test code = 27423-4) [facility] [id number] 05:04:00 Test Item Value Reference Range Interpretation [...] S NOT APPLICABLE FOR DIALYSIS PATIEN TS. Strickler Attendant ID - RA MCBC with platelet count + manual [id number] 04:42:00 Test Item Value Reference Range Interpretation Comments WBC (test code = 6690-2) 9.0 See_Comment [A utomated message] The system Babble generated this result transmitted ref erence range: 3.5 - 10 .5 K/L. The refe rence range was not u sed to interpret this result as normal/abnor mal. RBC (test code = 789-8) 3.37 See_Comment L [Au tomated message] The system Babble generated this result transmitted ref erence range: 4.63 - 6 .08 M/L. The refe rence range was not u sed to interpret this result as normal/abnor mal. MCHC (test code = 786-4) 33.4 See_Comment L [A utomated message] The system Babble generated this result transmitted ref erence range: [...] code = 213 See_Comment [Aut omated message] 057-3) The system Babble generated this result transmitted ref erence range: 150 - 45 0 K/CU MM. The referen ce range was not u sed to interpret this result as normal/abnor mal. MPV (test code = 10.0 fL 9.4-12.4 01560-3) nRBC (test code = 413) 0 See_Comment [Aut omated message] The system [employer] h generated this result transmitted ref erence range: 0 - 0 /1 00 WBC. The refere nce range was not u sed to interpret this result as normal/abnor mal. Lab Interpretation (test Abnormal code = 14850-5) [facility] WITH PLATELET COUNT + MANUAL [id number] 04:42:00 Test Item Value Reference Range Interpretation [...] (test code = 413) Arterial Doppler Leg, [id number] 08:16:33Ejection FractionSLEH ECHO HEARTLAB MKCKESSON CPACSRight Impression1. 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 Strickler Attendant ID - RA [id number] 02:58:00 Test Item Value Reference Range Interpretation Comments PHOSPHORUS (BEAKER) (test code = 7.4 mg/dL 2.3-4.7 H 604) Strickler Attendant ID - RA MCBC with platelet count + automated [id number] 02:38:00 Test Item Value Reference Range Interpretation Comments WBC (test code = 6690-2) 9.0 See_Comment [A utomated message] The system Babble generated this result transmitted ref erence range: 3.5 - 10 .5 K/L. The refe rence range was not u sed to interpret this result as normal/abnor mal. RBC (test code = 789-8) 3.66 See_Comment L [Au tomated message] The system Bab[employer] generated this result transmitted ref erence range: 4.63 - 6 .08 M/L. The refe rence range was not u sed to interpret this result as normal/abnor mal. MCHC (test code = 786-4) 32.8 See_Comment L [A utomated message] The system Babble generated this result transmitted ref erence range: [...] See_Comment [Aut omated message] 777-3) The system Bab[employer] generated this result transmitted ref erence range: 150 - 45 0 K/CU MM. The referen ce range was not u sed to interpret this result as normal/abnor mal. MPV (test code = 9.9 fL 9.4-12.4 00936-6) nRBC (test code = 413) 0 See_Comment [Aut omated message] The system Babble generated this result transmitted ref erence range: [...] H [Aut omated message] 670) The system Babble generated this result transmitted ref erence range: 1.78 - 5 .38 K/L. The refe rence range was not u sed to interpret this result as normal/abnor mal. # Lymphs (test code = 1.67 See_Comment [Auto mated message] 414) The system Babble generated this result transmitted ref erence range: 1.32 - 3 .57 K/L. The refe rence range was not u sed to interpret this result as normal/abnor mal. # Monos (test code = 0.60 See_Comment [Autom ated message] 415) The system Bab[employer] generated this result transmitted ref erence range: 0.30 - 0 .82 K/L. The refe rence range was not u sed to interpret this result as normal/abnor mal. # Eos (test code = 416) 0.14 See_Comment [Au tomated message] The system Babble generated this result transmitted ref erence range: 0.04 - 0 .54 K/L. The refe rence range was not u sed to interpret this result as normal/abnor mal. # Baso (test code = 417) 0.11 See_Comment H [A utomated message] The system Babble generated this result transmitted ref erence range: 0.01 - 0 .08 K/L. The refe rence range was not u sed to interpret this result as normal/abnor mal. Immature 0 % 0-1 Granulocytes-Relative (test code = 2801) Lab Interpretation (test Abnormal code = 12979-8) [facility] W/PLT COUNT & AUTO [id number] 02:38:00 Test Item Value Reference Range Interpretation [...] (BEAKER) (test code = 2801) ECG 12 [id number] 14:18:34Interface, External Ris In - 12/14/2019 2:18 PM CDTVentricular Rate 73 BPMAtrial Rate 73 BPMP-R Interval 184 msQRS Duration 100 msQ-T Interval 400 msQTC Calculation(Bazett) 440 msP [place] 59 degreesR [place] 75 degreesT [place] 122 degreesNormal sinus rhythmNonspecific T wave abnormalityAbnormal ECGWhen compared with ECG of 13-JUL-2019 07:43,No significant change was foundConfirmed by MD Harding Roberto ([id number]) on 12/14/2019 2:18:32 [facility])2019-12-14 11:10:00 Test Item Value Reference Range Interpretation Comments SARS-COV2/RT-PCR Negative Not Detected, (test code = Negative, See 09976-4) external report for linked test SARS-COV-2 [facility] PERFORMING LAB (test code = 08610-0) LOVE (test code = Negative results do [...] of the Act. Fact Sheet for Healthcare Providers:https://www.Company.com/Documents/Xper t%20Xpress%20SARS%20CoV- 2/Fact%20Sheets/302-3802 %15KYWI-BYL-3%20HEALTHCA RE%20PROVIDERS%20FACT%20 SHEET.pdf Fact Sheet for Healthcare Patients:https://www.[employer]/Documents/Xpert %20Xpress%20SARS%20CoV-2 /Fact%20Sheets/302-3801% 90GQPM-RFU-8%20PATIENT%2 0FACT%20SHEET.pdf Performing Laboratory:[facility] [place] [address] [facility] REF [facility])2019-12-14 11:10:00 Test Item Value Reference Range Interpretation Comments SARS-COV2/RT-PCR (test code Negative Not Detected, Negative, = 9139948) See external report for linked test SARS-COV-2 PERFORMING LAB [facility] (test code = 3788239) Negative results do not preclude SARS-CoV-2 infection [...] of the Act.Fact Sheet for Healthcare Pro viders:https://www.[employer]/Documents/Xpert%20Xpress%20SARS%20CoV-2/Fact%20Sh eets/3023802%86ZZLI-VOE-7%20HEALTHCARE%20PROVIDERS%20FACT%20SHEET.pdfFact Sheet for Healthcare Patients:https://www.[employer]/Documents/Xpert%20Xpress%20SARS%20CoV-2/Fact%20Sheets/3023801%20SARS-COV -2%20PATIENT%20FACT%20SHEET.pdfPerforming Laboratory:[facility], [place] [address]LPJIS METABOLIC [id number] 09:53:00 Test Item Value Reference Range Interpretation [...] S NOT APPLICABLE FOR DIALYSIS PATIEN TS. Strickler Attendant ID - ROSIANGProthrombin time/[id number] 09:39:00 Test Item Value Reference Interpretation Comments Range Protime (test code = 15.0 See_Comment H [Autom ated 5902-2) message] The system which generated this result transmitted reference range : 11.9 - 14.2 seconds. The reference range was not used to interpret this result as normal/abnormal . INR (test code = 1.21 See_Comment [Automated 3241-6) message] The system which generated this result [...] valves. Lab Interpretation Abnormal (test code = 27158-8) [facility]/[id number] 09:39:00 Test Item Value Reference Range Interpretation [...] 6.8 See_Comment [A utomated message] The system Babble generated this result transmitted ref erence range: 3.5 - 10 .5 K/L. The refe rence range was not u sed to interpret this result as normal/abnor mal. RBC (test code = 789-8) 4.26 See_Comment L [Au tomated message] The system Babble generated this result transmitted ref erence range: 4.63 - 6 .08 M/L. The refe rence range was not u sed to interpret this result as normal/abnor mal. MCHC (test code = 786-4) 33.3 See_Comment L [A utomated message] The system Babble generated this result transmitted ref erence range: [...] See_Comment [Aut omated message] 777-3) The system Babble generated this result transmitted ref erence range: 150 - 45 0 K/CU MM. The referen ce range was not u sed to interpret this result as normal/abnor mal. MPV (test code = 9.3 fL 9.4-12.4 L 90064-5) nRBC (test code = 413) 0 See_Comment [Aut omated message] The system Babble generated this result transmitted ref erence range: 0 - 0 /1 00 WBC. The refere nce range was not u sed to interpret this result as normal/abnor mal. Lab Interpretation (test Abnormal code = 58868-8) [facility] (HEMOGRAM ONLY)2019-12-14 09:38:00 Test Item [...] 0-0 (BEAKER) (test code = 413) URINE [id number] 11:01:00 Test Item Value Reference Range Interpretation Comments CULTURE (BEAKER) ENTEROCOCCUS A 40-49,000 c ol/mL (test code = 1095) FAECALIS Enterococ cus faecalis Ampicillin (test S code = 26) Linezolid (test code S = 40) Nitrofurantoin (test S code = 23) Tetracycline (test R code = 2) Vancomycin (test S code = 13) <10,000 col/mL skin floraHEMOGLOBIN [id number] 09:52:00 Test Item Value Reference Range Interpretation Comments HEMOGLOBIN A1C (BEAKER) (test code = 6.6 % 4.3-6.1 H 368) Strickler Attendant ID - [id number] 09:08:00 Test Item Value Reference Range Interpretation Comments PROSTATE SPECIFIC ANTIGEN (BEAKER) 0.5 ng/mL 0.0-4.0 (test code = 844) Strickler Attendant ID - PITER FLIPID [id number] 08:00:00 Test Item Value Reference Range Interpretation [...] Borderline 130-159 High 160-189 Very High >=190 Strickler Attendant ID - CHUCHO GOMES [id number] 14:35:00 Test Item Value Reference Range Interpretation Comments CULTURE (BEAKER) ENTEROCOCCUS A 10-19,000 c ol/mL (test code = 1095) FAECALIS Enterococ cus faecalis Ampicillin (test S code = 26) Levofloxacin (test S code = 22) Linezolid (test code S = 40) Nitrofurantoin (test S code = 23) Tetracycline (test R code = 2) Vancomycin (test S code = 13) 10-19,000 col/mL skin [id number] 10:31:00 Test Item Value Reference Range Interpretation Comments RPR SCREEN (QUINTON) (test code = Nonreactive Nonreactive 420) U/S, ABDOMINAL, [id number] 16:14:00Reason for Exam:->Kidney transplant evaluation; comment on [...] Phipps Verified Date/Time: 05/23/2019 16:14:42 Reading Location: [address] Radiology Reading Room RAD, CHEST, 2 [id number] 16:02:00Reason for Exam:->Pre kidney transplant evaluation.FINAL REPORT [...] MDReport Verified Date/Time: 05/23/2019 16:02:27 Reading Location: [address] Radiology Reading Room Electronically signed by: TAMIKA PHIPPS MD on05/23/2019 04:02 PMCYTOMEGALOVIRUS ANTIBODY, IGG 2019-05-23 15:17:00 Test Item Value Reference Range Interpretation Comments CYTOMEGALOVIRUS, IGG (BEAKER) Positive Negative, Equivocal A (test code = 3429) CMV IgG Result Interpretation: </= 0.8 Al Negative 0.9-1.0 Al Equivocal >/=1.1 Al PositiveCYTOMEGALOVIRUS ANTIBODY, [id number] 15:17:00 Test Item Value Reference Range Interpretation Comments CYTOMEGALOVIRUS IGM ANTIBODY Negative Negative, Equivocal (BEAKER) (test code = 3437) CMV IgM Result Interpretation: </= 0.8 Al Negative 0.9-1.0 Al Equivocal >/= 1.1 Al PositiveEBV ANTIBODY, [id number] 15:17:00 Test Item Value Reference Range Interpretation Comments NIHARIKA HOOPER VIRAL CAPSID Positive Negative, Equivocal A ANTIGEN IGG (Hole 19) (test code = 3415) Niharika Hooper Viral Capsid Antigen IgG Result Interpretation: </= 0.8 Al Negative 0.9-1.0 Al Equivocal >/= 1.1 Al PositiveEBV ANTIBODY, IGM 2019-05-23 15:17:00 Test Item Value Reference Range Interpretation Comments NIHARIKA HOOPER VIRAL CAPSID Negative Negative, Equivocal ANTIGEN IGM (Hole 19) (test code = 3418) Niharika Hooper Viral Capsid Antigen IgM Result Interpretation: </= 0.8 Al Negative 0.9-1.0 Al Equivocal >/= 1.1 Al PositiveVARICELLA ZOSTER ANTIBODY, [id number] 15:17:00 Test Item Value Reference Range Interpretation Comments VARICELLA ZOSTER IGG (AL) (BEAKER) 3.4 (test code = 3197) VARICELLA ZOSTER RESULT INTERPRETATIONS: <=0.8 Al Nonreactive: Presumed non-immune to VZV 0.9-1.0 Al Equivocal >=1.1 Al Reactive: Presumed immune to VZVHEPATITIS B SURFACE [id number] 12:59:00 Test Item Value Reference Range Interpretation Comments HEPATITIS B SURFACE ANTIBODY 61072.3 mIU/mL <8.0 H ([employer].AKER) (test code = 647) Strickler Attendant ID - ROSIANGHEPATITIS B SURFACE [id number] 12:47:00 Test Item Value Reference Range Interpretation Comments HEPATITIS B SURFACE ANTIGEN (2) Nonreactive Nonreactive (BEAKER) (test code = 2585) Strickler Attendant ID - TIKAEPATITIS B CORE ANTIBODY, [id number] 12:47:00 Test Item Value Reference Range Interpretation Comments HEPATITIS B CORE IGM ANTIBODY Nonreactive Nonreactive (BEAKER) (test code = 645) Strickler Attendant ID - NANCYGHEPATITIS C [id number] 12:47:00 Test Item Value Reference Range Interpretation Comments HEPATITIS C ANTIBODY (BEAKER) Nonreactive Nonreactive (test code = 367) Strickler Attendant ID - TIKAIV-1 ANTIGEN WITH HIV-1/2 [id number] 12:47:00 Test Item Value Reference Range Interpretation Comments HIV-1 ANTIGEN WITH HIV 1\T\2 Nonreactive Nonreactive ANTIBODY (2) (BEAKER) (test code = 2586) Strickler Attendant ID - NANCYGPTH, [id number] 12:03:00 Test Item Value Reference Range Interpretation Comments PARATHYROID HORMONE INTACT 430.9 pg/mL 8.5-72.5 H (BEAKER) (test code = 577) Strickler Attendant ID - LACOMPREHENSIVE METABOLIC [id number] 11:56:00 Test Item Value Reference Range Interpretation [...] S NOT APPLICABLE FOR DIALYSIS PATIEN TS. Strickler Attendant ID - LAURIC [id number] 11:55:00 Test Item Value Reference Range Interpretation Comments URIC ACID (BEAKER) (test code = 5.5 mg/dL 2.6-7.2 773) Strickler Attendant ID - [id number] 11:55:00 Test Item Value Reference Range Interpretation Comments PHOSPHORUS (BEAKER) (test code = 5.5 mg/dL 2.3-4.7 H 604) Strickler Attendant ID - LAGAMMA GLUTAMYL TRANSFERASE (GGT)2019-05-23 11:55:00 Test Item Value Reference Range Interpretation Comments GAMMA GLUTAMYL TRANSFERASE (BEAKER) 20 U/L 9-64 (test code = 364) Strickler Attendant ID - LALACTATE DEHYDROGENASE (LDH)2019-05-23 11:55:00 Test Item Value Reference Range Interpretation Comments LACTATE DEHYDROGENASE (BEAKER) (test 249 U/L 125-220 H code = 635) Strickler Attendant ID - LAURINALYSIS W/ [id number] 11:43:00 Test Item Value Reference Range Interpretation [...] < /HPF SOURCE(BEAKER) (test code = 2795) Strickler Attendant ID - [auto]Strickler Attendant ID - techPT/[id number] 11:32:00 Test Item Value Reference Range Interpretation [...] is2.5-3.5 for patients wiht mechanical heart valves.PROTHROMBIN TIME/[id number] 11:31:00 Test Item Value Reference Range Interpretation [...] mechanical heart valves.CBC W/PLT COUNT & AUTO [id number] 11:27:00 Test Item Value Reference Range Interpretation [...]
--- NOTE | 2020-11-23 16:57 | RAD REPORT ---
EXAM DESCRIPTION: Phil Single View11/23/2020 4:41 pm CLINICAL HISTORY: Palpitations COMPARISON: June 2020 FINDINGS: Mild bibasilar lung opacities unchanged which could represent areas of subsegmental atele ctasis or scarring. Upper lobes appear clear. Heart remains enlarged
[2020-11-23 17:23] LABS: Absolute Lymphocytes (CBC) 1.6 K/uL (0.7-4.9); Basophils % 0.9 % (0-1.3); Lymphocytes % 14.7 % (15.3-44.8); RBC Red Blood Cell Count 3.88 M/uL (4.33-5.43)
[2020-11-23 17:25] LABS: Protime INR 0.98
--- NOTE | 2020-11-23 17:29 | RAD REPORT ---
EXAM DESCRIPTION: CT - Head C Spine Mpr Wo Con - 11/23/2020 5:17 pm CLINICAL HISTORY: Headache and neck pain COMPARISON: June 2020 TECHNIQUE: Computed axial tomography of the head and cervical spine was obtained. Sagittal and coronal reconstruction was performed. All CT scans are performed using dose optimization technique as appropriate and may include automated exposure control or mA/KV adjustment according to patient size. FINDINGS: 4.2 centimeter fluid collection left temporal fossa probably an arachnoid cyst. An intracranial bleed is not seen. The ventricles are normal in caliber. Mild low-density areas withi n periventricular, and subcortical white matter probably changes secondary to small vessel disease. F luid within the sinuses and mastoids is not seen. Mild chronic ethmoid sinusitis. A cervical fracture is not visualized. No dislocation is noted. Slight posterior subluxation C5 on C6 . Mild spondylosis involves the cervical spine. No high-grade stenosis noted IMPRESSION: No acute intracranial abnormality is seen. A cervical fracture is not visualized. No high-grade stenosis visualized. If the patient continues to have symptoms to suggest intracranial /spinal cord/spinal canal pathology then MRI would be recommen ded
[2020-11-23 17:33] LABS: ALT/SGPT 44 U/L (12-78); AST/SGOT 19 U/L (15-37); Albumin 4.3 g/dL (3.4-5.0); Alkaline Phosphatase 89 U/L (45-117); BUN Blood Urea Nitrogen 50 mg/dL (7-18); Bicarbonate 25 mmol/L (21-32); Bilirubin Direct < 0.1 mg/dL (0-0.2); Bilirubin Total 0.3 mg/dL (0.2-1.0); Glucose Level 174 mg/dL (74-106); Magnesium 2.3 mg/dL (1.8-2.4); NT PRO-BNP 2286 pg/mL (<125); Potassium 3.4 mmol/L (3.5-5.1); Protein, Total 8.7 g/dL (6.4-8.2); Sodium Level 139 mmol/L (136-145); Troponin (Emerg Dept Use Only) < 0.02 ng/mL (0.0-0.045)
[2020-11-23] MEDS ORDERED: MECLIZINE HCL 12.5 MG TAB ONE (18:04)
[2020-11-23] MEDS ORDERED: ACETAMINOPHEN 500 MG TAB ONE (18:04)
--- NOTE | 2020-11-23 20:28 | EDPHYS ---
Physician Documentation [facility] Name: Alejandro Dunbar Age: 55 yrs Sex: Male : 1965 Arrival Date: 11/23/2020 Time: 14:03 Bed 3 Private MD: ED Physician Felton Brantley HPI: 11/23 16:24 This 55 yrs old Male presents to ER via Unassigned with complaints of cp Palpitations, Headache. 16:25 The patient presents with a history of heart racing. Context: The symptoms occur at cp rest. Onset: The symptoms/episode began/occurred today. 16:25 Duration: The patient or guardian reports a single episode, that is still ongoing, but cp improving. 16:25 Associated signs and symptoms: Pertinent positives: chest pain, headache, Pertinent cp negatives: cough, fever, SOB, syncope, vomiting. Severity of symptoms: in the emergency department the symptoms have improved mildly. 16:25 Patient reports ESRD and completing dialysis yesterday. cp Historical: - Allergies: 16:11 No Known Allergies; iw - PMHx: 16:03 Diabetes - NIDDM; Dialysis; High Cholesterol; Hypertension; Hypothyroidism; iw - Immunization history:: Adult Immunizations unknown. - Social history:: Smoking status: unknown. ROS: 16:30 Constitutional: Negative for body aches, chills, fever, poor PO intake. cp 16:30 Cardiovascular: Positive for palpitations, Negative for chest pain. cp 16:30 Eyes: Negative for injury, pain, redness, and discharge. cp 16:30 Neck: Negative for pain with movement, pain at rest, stiffness. cp 16:30 Respiratory: Negative for cough, shortness of breath, wheezing. 16:30 Abdomen/GI: Negative for abdominal pain, nausea, vomiting, and diarrhea. 16:30 Neuro: Positive for dizziness, headache, Negative for altered mental status, syncope, weakness. 16:30 All other systems are negative. Exam: 16:33 Constitutional: The patient appears in no acute distress, alert, awake, cp non-diaphoretic, non-toxic, well developed, well nourished. 16:33 Head/Face: Normocephalic, atraumatic. cp 16:33 Eyes: Periorbital structures: appear normal, Pupils: equal, round, and reactive to cp light and accomodation, Extraocular movements: intact throughout, Conjunctiva: normal, no exudate, no injection, Sclera: no appreciated abnormality, Lids and lashes: appear normal, bilaterally. 16:33 ENT: External ear(s): are unremarkable, Ear canal(s): are normal, clear, TM's: dullness, bilaterally, Nose: is normal, Mouth: Lips: moist, Oral mucosa: pink and intact, moist, Posterior pharynx: Airway: no evidence of obstruction, patent. 16:33 Neck: ROM/movement: is normal, is supple, without pain, no range of motions limitations, no nuchal rigidity. 16:33 Chest/axilla: Inspection: normal, Palpation: is normal, no crepitus, no tenderness. 16:33 Cardiovascular: Rate: normal, Rhythm: regular, Edema: is not appreciated, JVD: is not appreciated. 16:33 Respiratory: the patient does not display signs of respiratory distress, Respirations: normal, no use of accessory muscles, no retractions, labored breathing, is not present, Breath sounds: are clear throughout, no decreased breath sounds, no stridor, no wheezing. 16:33 Abdomen/GI: Inspection: abdomen appears normal, Palpation: abdomen is soft and non-tender, in all quadrants. 16:33 Back: pain, is absent, ROM is normal. 16:33 Neuro: Orientation: to person, place \T\ time. Mentation: is normal, Cerebellar function: Romberg testing is negative, Motor: moves all fours, strength is normal, Sensation: is normal. 17:11 ECG was reviewed by the Attending Physician. Vital Signs: 16:11 BP 149 / 77; Pulse 72; Resp 16; Temp 98.3; Pulse Ox 98% on R/A; Weight 74.84 kg; Height iw 5 ft. 4 in. (162.56 cm); 17:11 BP 138 / 76; Pulse 63; Resp 15; Pulse Ox 100% ; jl7 18:48 BP 137 / 72; Pulse 61; Resp 15; Pulse Ox 100% ; jl7 20:13 BP 121 / 71; Pulse 56; Resp 16 S; Pulse Ox 96% on R/A; bb 16:11 Body Mass Index 28.32 (74.84 kg, 162.56 cm) MDM: 16:20 Patient medically screened. lazaro 16:30 Differential diagnosis: arrythmia, dehydration, intracranial bleed, CVA, migraine. 20:28 Data reviewed: vital signs, nurses notes, lab test result(s), EKG, radiologic studies, cp CT scan, plain films. 20:28 Test interpretation: by ED physician or midlevel provider: ECG, plain radiologic cp studies. 20:28 Response to treatment: the patient's symptoms have markedly improved after treatment, cp VSS. Headache and dizziness improved. Cardiac work-up: initial and repeat troponin negative, EKG negative for STEMI. Will discharge to home for continued monitoring. 11/23 16:25 Order name: Basic Metabolic Panel 11/23 16:25 Order name: CBC with Diff; Complete Time: 17:39 11/23 17:39 Interpretation: Normal except: RBC 3.88; HGB 12.2; HCT 35.0; MCV 90.2; WARREN% 76.0; LYM% cp 14.7; NEUT A 8.2. 11/23 16:25 Order name: LFT's; Complete Time: 18:18 11/23 18:18 Interpretation: Normal except: TP 8.7; GLOB 4.4; A/G 1.0. 11/23 16:25 Order name: Magnesium; Complete Time: 18:18 11/23 16:25 Order name: NT PRO-BNP; Complete Time: 18:18 11/23 18:19 Interpretation: Abnormal: NT PRO-BNP 2286. 11/23 16:25 Order name: PT-INR; Complete Time: 17:38 11/23 16:25 Order name: Troponin (emerg Dept Use Only); Complete Time: 18:18 11/23 16:25 Order name: XRAY Chest (1 view); Complete Time: 17:38 11/23 17:38 Interpretation: Report reviewed. 11/23 16:26 Order name: Basic Metabolic Panel; Complete Time: 18:18 EDMS 11/23 18:18 Interpretation: Normal except: K 3.4; GLUC 174; BUN 50; CRE 8.48; GFR 7. 11/23 17:04 Order name: CT Head C Spine; Complete Time: 17:38 11/23 17:38 Interpretation: Reviewed report. 11/23 19:11 Order name: Troponin I cp 11/23 19:19 Order name: Troponin I; Complete Time: 20:24 EDIN 11/23 20:25 Interpretation: Reviewed. cp 11/23 16:25 Order name: EKG; Complete Time: 16:26 cp 11/23 16:25 Order name: Cardiac monitoring; Complete Time: 17:13 cp 11/23 16:25 Order name: EKG - Nurse/Tech; Complete Time: 17:13 cp 11/23 16:25 Order name: IV Saline Lock; Complete Time: 17:13 cp 11/23 16:25 Order name: Labs collected and sent; Complete Time: 17:13 cp 11/23 16:25 Order name: O2 Per Protocol; Complete Time: 17:13 cp 11/23 16:25 Order name: O2 Sat Monitoring; Complete Time: 17:13 cp EC:11 Rate is 61 beats/min. Rhythm is regular. MO interval is normal. QRS interval is normal. cp QT interval is normal. T waves are Inverted in lead aVL. Interpreted by me. Reviewed by me. Administered Medications: 17:47 Drug: Meclizine 25 mg Route: PO; zb 18:48 Follow up: Response: No adverse reaction; Marked relief of symptoms jl7 17:47 Drug: Tylenol 1000 mg Route: PO; zb 18:48 Follow up: Response: No adverse reaction jl7 Disposition: 11/24 07:01 Co-signature as Attending Physician, Felton Brantley MD I agree with the assessment and lazaro plan of care. Disposition Summary: 11/23/20 20:28 Discharge Ordered Location: Home cp Problem: new cp Symptoms: have improved cp Condition: Stable cp Diagnosis - Palpitations cp - Headache cp Followup: cp - With: Private Physician - When: 2 - 3 days - Reason: Recheck today's complaints Discharge Instructions: - Discharge Summary Sheet cp - General Headache Without Cause cp - Palpitations cp Forms: - Medication Reconciliation Form cp - Thank You Letter cp - Antibiotic Education cp - Prescription Opioid Use cp Signatures: Dispatcher [employer] Felton Kurtz MD MD cha Williams, Irene RN Felton Zamudio PA PA cp Aida Turcios RN RN Citlalli Tian RN RN zangel
--- NOTE | 2020-11-23 20:28 | ER ---
Nurse's Notes [facility] Name: Alejandro Dunbar Age: 55 yrs Sex: Male : 1965 Arrival Date: 11/23/2020 Time: 14:03 Bed 3 Private MD: Diagnosis: Palpitations;Headache Presentation: 11/23 14:50 Chief complaint: Patient states: headache and chest pain X 1.5 days, is a dialysis pt. iw 14:50 Acuity: KERRI 3 iw Historical: - Allergies: 16:11 No Known Allergies; iw - PMHx: 16:03 Diabetes - NIDDM; Dialysis; High Cholesterol; Hypertension; Hypothyroidism; iw - Immunization history:: Adult Immunizations unknown. - Social history:: Smoking status: unknown. Screenin:30 Abuse screen: Denies threats or abuse. Denies injuries from another. Nutritional jl7 screening: No deficits noted. Tuberculosis screening: No symptoms or risk factors identified. Fall Risk IV access (20 points). Assessment: 17:00 General: Appears in no apparent distress. uncomfortable, Behavior is calm, cooperative, jl7 appropriate for age. Pain: Complains of pain in anterior aspect of left upper chest Pain does not radiate. Pain currently is 5 out of 10 on a pain scale. Pain began 1 day ago. Neuro: Level of Consciousness is awake, alert, obeys commands, Oriented to person, place, time, situation, Reports dizziness. Cardiovascular: Patient's skin is warm and dry. Rhythm is sinus rhythm. Respiratory: Airway is patent Respiratory effort is even, unlabored, Respiratory pattern is regular, symmetrical. Derm: Skin is pink, warm \T\ dry. 20:15 General: Appears in no apparent distress. Behavior is calm, cooperative. Pain: Denies bb pain. Neuro: Level of Consciousness is awake, alert, obeys commands, Oriented to person, place, situation. Cardiovascular: Capillary refill < 3 seconds Patient's skin is warm and dry. Rhythm is sinus rhythm. Respiratory: Respiratory effort is even, unlabored, Respiratory pattern is regular, Breath sounds are clear bilaterally. GI: No signs and/or symptoms were reported involving the gastrointestinal system. Derm: Skin is pink, warm \T\ dry. 20:53 Reassessment: Patient appears in no apparent distress at this time. Patient and/or zb family updated on plan of care and expected duration. Pain level reassessed. Patient is alert, oriented x 3, equal unlabored respirations, skin warm/dry/pink. Vital Signs: 16:11 BP 149 / 77; Pulse 72; Resp 16; Temp 98.3; Pulse Ox 98% on R/A; Weight 74.84 kg; Height iw 5 ft. 4 in. (162.56 cm); 17:11 BP 138 / 76; Pulse 63; Resp 15; Pulse Ox 100% ; jl7 18:48 BP 137 / 72; Pulse 61; Resp 15; Pulse Ox 100% ; jl7 20:13 BP 121 / 71; Pulse 56; Resp 16 S; Pulse Ox 96% on R/A; bb 16:11 Body Mass Index 28.32 (74.84 kg, 162.56 cm) iw ED Course: 14:03 Patient arrived in ED. cl3 14:51 Triage completed. iw 16:20 Felton Brantley MD is Attending Physician. [facility] 16:20 Felton Antoine PA is PHCP. cp 16:41 XRAY Chest (1 view) In Process Unspecified. EDMS 16:55 Aida Turcios, SANJAY is Primary Nurse. jl7 17:00 Initial lab(s) drawn, by pr, sent to lab. Inserted saline lock: 20 gauge in right jl7 wrist, using aseptic technique. Blood collected. 17:11 EKG done, by ED staff, reviewed by Felton DAVIS. jl7 17:11 Patient maintains SpO2 saturation greater than 95% on room air. jl7 17:11 Patient has correct armband on for positive identification. Bed in low position. Call [facility] light in reach. Side rails up X 1. 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 Pulse ox on. NIBP on. 17:17 CT Head C Spine In Process Unspecified. EDMS Administered Medications: 17:47 Drug: Meclizine 25 mg Route: PO; zb 18:48 Follow up: Response: No adverse reaction; Marked relief of symptoms jl7 17:47 Drug: Tylenol 1000 mg Route: PO; zb 18:48 Follow up: Response: No adverse reaction jl7 Outcome: 20:28 Discharge ordered by . cp 20:56 Patient left the ED. zb Signatures: Dispatcher [employer] EDKS Felton Brantley MD MD cha Ballard, Brenda, RN RN bb Evette Coleman, RN RN iw Felton Antoine PA PA cp Leal, Jahala, RN RN jl7 Festus Richardson cl3 Citlalli Hanson, RN RN zb
[2020-11-23 21:08] VITALS: TEMP 98.3
[2020-11-23 21:12] VITALS: BP 121/71; O2SAT 96
== END 2020-11-23 20:56 | disposition home or self-care (01) ==
LOC: ER 13:56
DX: R51.9 Headache, unspecified (principal); E11.22 Type 2 diabetes mellitus with diabetic chronic kidney disease; I12.0 Hypertensive chronic kidney disease with stage 5 chronic kidney disease or end stage renal disease; N18.6 End stage renal disease; Z99.2 Dependence on renal dialysis
CPT/HCPCS: 36415; 70450; 71045; 72125; 80048; 80076; 83735; 83880; 84484; 85025; 85610; 93005; 99285

== ENCOUNTER 2021-12-22 09:13 | Emergency (ER) | payer OTHER ==
--- OUTSIDE RECORDS SUMMARY | 2021-12-22 09:21 | XMS REPORT | Continuity of Care Document ---
:[address] [facility] t Address [address] [place] [address] Care Team Providers Name Role Phone Enoch Salazar [facility] Primary Care P hysician IRMA NICHOLSON Attending Clinician Unavailable SYLVAIN OLIVARES Attending Clinician Unavailable Khoa HUDDLESTON, Maxim Attending Clinician Sam Mcmullen MD Attending Clinician Doctor Unassigned, [place] Attending Clinician Unavailable Bandar HUDDLESTON, Dean Attending Clinician MARCUS CABALLERO Attending Clinician Unavailable HUNTER GIPSON Attending Clinician Unavailable IRMA NICHOLSON Admitting Clinician Unavailable SYLVAIN OLIVARES Admitting Clinician Unavailable Payers Payer Name Policy Type Policy Number Effective Date Expiration Date [facility] MEDICARE A B [id number] 2018 00:00:00 CDC REVIEW [id number] 2019 00:00:00 MEDICAID OF [place] [id number] 2019 00:00:00 Problems Condition Condition Condition Status Onset Resolution Last Treating Co mments Source Name Details Category Date Date Treatment Clinician Date Nonobstruc Nonobstruc Disease Active U nivers tive tive 4-20 ity of atherosc[place]le [place] rosis of 00 Medica l coronary coronary Branch artery artery Dizziness Dizziness Disease Active Uni vers 9-10 ity of 00:00: [place] 00 Medical Branch Pre-syncop Pre-syncop Disease Active 2019-0 U nivers e e 9-08 ity of 00:00: [place] [facility] Elevated Elevated Disease Active 2017-05 Unive rs troponin I troponin I 05-04 it y of level level 00:00: [place] [facility] Elevated Elevated Disease Active 2017-05 Unive rs brain brain 05-04 ity of natriureti natriureti [place] c peptide c peptide 00 [facility] (BNP) (BNP) Branch level level Essential Essential Disease Active 2017-05 Uni vers hypertensi hypertensi 05-04 it y of on on 00:00: [place] [facility] Dyslipidem Dyslipidem Disease Active 2017-05 U nivers ia ia 05-04 ity of 00:00: [place] [facility] Hypocalcem Hypocalcem Disease Active 2017-05 U nivers ia ia 05-03 ity of 00:00: [place] [facility] Allergies, Adverse Reactions, Alerts Allergy Allergy Status Severity Reaction(s) Onset Inactive Treating Comm ents Source Name Type Date Date Clinician n Propensi Active ty to 11-06 adverse 00:00: reaction 00 to drug NO KNOWN Allergy Active [facility] Social History Social Habit Start Date Stop Date Quantity Comments Source History of Cigarette Smoker Universi ty of tobacco use [facility] Exposure to 2021-11-22 2021-12-02 Not sure [facility] SARS-CoV-2 00:00:00 14:04:00 [facility] (event) [place] Alcohol intake 2020-08-20 2020-08-20 Current University of 00:00:00 00:00:00 non-drinker of [facility] alcohol (finding) Branch Tobacco use and 2018-03-03 2018-03-03 Smokeless tobacco Un iversity of exposure 00:00:00 00:00:00 non-user [facility] Sex Ass[birth year] Universit y of 00:00:00 00:00:00 [facility] Smoking Status Start Date Stop Date Source Ex-smoker 2018-03-03 00:00:00 2018-03-03 00:00:00 Universi ty of [facility] Medications Ordered Filled Start Stop Current Ordering Indication Dosage Frequency Signature Comments Components Source Medication Medication Date Date Medication? Clinician (SIG) Name Name TAKE 1 No 2 TABLET 8-05 EVERY 6 00:00: HOURS BY 00 ORAL ROUTE NEEDED FOR 7 DAYS. &lt 2022-0 No 8-05 00:00: 00 INSTILL 1 2021-0 No DROP IN 8-05 BOTH EYES 00:00: EVERY DAY 00 &lt 2022-0 No 8-03 00:00: 00 Dose 2022-0 No Unknown 7-26 00:00: 00 &lt 2022-0 No 25 7-26 00:00: 00 TAKE 1 2021-0 No 2 TABLET 7-26 EVERY 6 00:00: HOURS BY 00 ORAL ROUTE NEEDED FOR 7 DAYS. INSTILL 1 2021-0 No DROP INTO 7-25 BOTH EYES 00:00: EVERY 00 MORNING &lt 2022-0 No 800 7-25 00:00: 00 Dose 2022-0 No 75 Unknown 7- 00:00: 00 TAKE 1 2021-0 No 300 CAPSULE BY 11-24 MOUTH EVERY 00:00: DAY 00 &lt 2022-0 No 10 7-25 00:00: 00 &lt 2022-0 No 10 7-22 00:00: 00 INSTILL 1 2021-0 No DROP IN 7-22 BOTH EYES 00:00: EVERY DAY 00 &lt 2022-0 No 500 7-22 00:00: 00 Dose 2-0 No 80 Unknown 7- 00:00: 00 &lt 2022-0 No 7-22 00:00: 00 &lt 2022-0 No 10 7- 00:00: 00 INSTILL 1 2021-0 No DROP IN 7-20 BOTH EYES 00:00: EVERY DAY 00 &lt 2022-0 No 7-19 00:00: 00 &lt 2022-0 No 7-19 00:00: 00 &lt 2022-0 No 80 7-19 00:00: 00 TAKE 1 2021-0 No 5 TABLET BY 11-06 MOUTH EVERY 00:00: DAY 00 Dose 2022-0 No 75 Unknown - 00:00: 00 &lt 2022-0 No 6-21 00:00: 00 &lt 2022-0 No 6-21 00:00: 00 Januvia 25 2021-0 No 1mg mg tablet 08-07 00:00: 00 amlodipine 2-0 No 1mg 10 mg 4- tablet 00:00: 00 atorvastati 2021-0 No 1mg n 80 mg 4-07 tablet 00:00: 00 Bromfed DM 2-0 No 5mg/5 2 mg-30 3-31 mL mg-10 mg/5 00:00: mL oral 00 syrup Dose 2022-0 No Unknown 3-30 00:00: 00 Dose 2022-0 No Unknown 3-30 00:00: 00 Dose 2022-0 No Unknown 3-30 00:00: 00 Dose 2022-0 No Unknown 3-30 00:00: 00 Dose 2022-0 No Unknown 3-30 00:00: 00 Dose 2022-0 No Unknown 3-30 00:00: 00 Dose 2022-0 No Unknown 3-24 00:00: 00 Dose 2022-0 No Unknown 3-24 00:00: 00 Dose 2022-0 No Unknown 3-24 00:00: 00 Dose 2022-0 No Unknown 3-24 00:00: 00 Dose 2022-0 No Unknown 3-24 00:00: 00 Dose 2022-0 No Unknown 3-24 00:00: 00 Dose 2022-0 No Unknown 3-24 00:00: 00 Dose 2022-0 No Unknown 3-24 00:00: 00 Dose 2022-0 No Unknown 3-24 00:00: 00 Dose 2022-0 No Unknown 3-24 00:00: 00 Dose 2022-0 No Unknown 3-24 00:00: 00 Dose 2022-0 No Unknown 3-24 00:00: 00 Dose 2022-0 No Unknown 3-24 00:00: 00 Dose 2022-0 No Unknown 3-24 00:00: 00 Dose 2022-0 No Unknown 3-24 00:00: 00 Dose 2022-0 No Unknown 3-24 00:00: 00 Dose 2022-0 No Unknown 3-24 00:00: 00 Dose 2022-0 No Unknown 3-24 00:00: 00 Dose 2022-0 No Unknown 3-16 00:00: 00 Dose 2022-0 No Unknown 3-16 00:00: 00 Dose 2022-0 No Unknown 3-16 00:00: 00 Dose 2022-0 No Unknown 3-16 00:00: 00 Dose 2022-0 No Unknown 3-16 00:00: 00 Dose 2022-0 No Unknown 3-16 00:00: 00 Dose 2022-0 No Unknown 3-16 00:00: 00 Dose 2-0 No Unknown 3-16 00:00: 00 Dose 2-0 No Unknown 3-16 00:00: 00 levothyroxi 2-0 Yes 1{tbl} Take 1 Un capri ne 200 mcg 3-03 tablet by ity of tablet 00:00: mouth [place] [id number] every Medical morning. Branch Januvia 25 2021-0 No 1mg mg tablet 2-04 00:00: 00 levothyroxi 2021-0 No 1mcg ne 200 mcg 2-04 tablet 00:00: 00 levothyroxi 2021-0 No 1mcg ne 25 mcg 2-04 tablet 00:00: 00 UNITHROID 2021-0 Yes 1{tbl} Take 1 Univ ers 25 mcg 2-04 tablet by ity of tablet 00:00: mouth [place] [id number] every Medical morning. Branch lisinopriL 2021-0 Yes 5mg Take 5 mg Un capri 5 mg tablet 1-07 by mouth ity of 00:00: daily. [address] amlodipine 2020-1 No 1mg 10 mg 2-30 tablet 00:00: 00 lidocaine 4 2020-1 No 1% % topical 2-02 cream 00:00: 00 cyclobenzap 2020-1 No 1mg rine 10 mg 2-02 tablet 00:00: 00 benzonatate 2020-1 No 1mg 200 mg 1-09 capsule 00:00: 00 amlodipine 1-0 No 1mg 10 mg 9-29 tablet 00:00: 00 sevelamer 1-0 No 1mg carbonate 9-29 800 mg 00:00: tablet 00 cyclobenzap 2020-0 No 1mg rine 10 mg 9-15 tablet 00:00: 00 atorvastati 1-0 No 1mg n 80 mg 6-09 tablet 00:00: 00 fenofibrate 1-0 No 1mg nanocrystal 6-07 lized 145 00:00: mg tablet 00 amlodipine 2020-0 No 1mg 10 mg 6-07 tablet 00:00: 00 sevelamer 1-0 No 1mg carbonate 6-07 800 mg 00:00: tablet 00 levothyroxi 2020-0 No 1mcg ne 200 mcg 6-07 tablet 00:00: 00 sevelamer 2021-0 No 1mg carbonate 4-13 800 mg 00:00: tablet 00 hydroxyzine 2020-0 No 1mg HCl 25 mg 4-13 tablet 00:00: 00 levothyroxi 2020-0 No 1mcg ne 200 mcg 4-13 tablet 00:00: 00 amlodipine 2020-0 No 1mg 10 mg 4-12 tablet 00:00: 00 amlodipine 2020-0 No 1mg 10 mg 4-12 tablet 00:00: 00 fenofibrate 2020-0 No 1mg nanocrystal 4-12 lized 145 00:00: mg tablet 00 benzonatate 2020-0 No 1mg 200 mg 2-02 capsule 00:00: 00 Bromfed DM 2020-0 No 5mg/5 2 mg-30 2-02 mL mg-10 mg/5 00:00: mL oral 00 syrup amlodipine 2020-0 No 1mg 10 mg 1-26 tablet 00:00: 00 glipizide 2019-1 No 1mg ER 5 mg 2-04 tablet, 00:00: extended 00 release 24 hr fenofibrate 2019-1 No 1mg nanocrystal 2-04 lized 145 00:00: mg tablet 00 atorvastati 2019- No 1mg n 40 mg 2-04 tablet 00:00: 00 diclofenac 2019-1 No 1% 1 % topical 2-02 gel 00:00: 00 amlodipine 2019-1 No 1mg 10 mg 2-02 tablet 00:00: 00 aspirin 81 2019-1 No 1mg mg 2-02 tablet,girma 00:00: yed release 00 aspirin 81 2019-1 No 1mg mg 2-02 tablet,girma 00:00: yed release 00 amlodipine 2019-1 No 1mg 10 mg 2-02 tablet 00:00: 00 sevelamer 2019-1 No 1mg carbonate 2-02 800 mg 00:00: tablet 00 sevelamer 2019-1 No 1mg carbonate 2-02 800 mg 00:00: tablet 00 atorvastati 2019-1 No 1mg n 10 mg 2-02 tablet 00:00: 00 atorvastati 2019-1 No 1mg n 10 mg 2-02 tablet 00:00: 00 calcium 2019-1 No 1(1,250 carbonate 2-02 mg) 500 mg 00:00: calcium 00 (1,250 mg) chewable tablet calcium 2020-1 No 1(1,250 carbonate 2-02 mg) 500 mg 00:00: calcium 00 (1,250 mg) chewable tablet levothyroxi 2020-1 No 1mcg ne 200 mcg 2-02 tablet 00:00: 00 levothyroxi 2020-1 No 1mcg ne 100 mcg 2-02 tablet 00:00: 00 levothyroxi 2020-1 No 1mcg ne 200 mcg 2-02 tablet 00:00: 00 levothyroxi 2020-1 No 1mcg ne 100 mcg 2-02 tablet 00:00: 00 amlodipine 2020-1 No 1mg 10 mg 0-21 tablet 00:00: 00 diclofenac 2020-0 No 1% 1 % topical 9-13 gel 00:00: 00 amlodipine 2020-0 No 1mg 10 mg 9-08 tablet 00:00: 00 aspirin 81 2020-0 No 1mg mg 9-08 tablet,girma 00:00: yed release 00 cyclobenzap 2020-0 No 1mg rine 10 mg 9-08 tablet 00:00: 00 sevelamer 2020-0 No 1mg carbonate 9-08 800 mg 00:00: tablet 00 calcium 2020-0 No 1(1,250 carbonate 9-08 mg) 500 mg 00:00: calcium 00 (1,250 mg) chewable tablet amlodipine 2020-0 No 1mg 10 mg 8-03 tablet 00:00: 00 cyclobenzap 2020-0 No 1mg rine 10 mg 7-09 tablet 00:00: 00 levothyroxi 2020-0 No 1mcg ne 200 mcg 7-09 tablet 00:00: 00 levothyroxi 2020-0 No 1mcg ne 100 mcg 7-09 tablet 00:00: 00 amlodipine 2020-0 No 1mg 10 mg 6-18 tablet 00:00: 00 amlodipine 2020-0 No 1mg 10 mg 5-15 tablet 00:00: 00 aspirin 81 2020-0 No 1mg mg 3-04 tablet,girma 00:00: yed release 00 amlodipine 2020-0 No 1mg 10 mg 3-04 tablet 00:00: 00 hydrochloro 2020-0 No 1mg thiazide 25 3-04 mg tablet 00:00: 00 sevelamer 2020-0 No 1mg carbonate 3-04 800 mg 00:00: tablet 00 atorvastati 2020-0 No 1mg n 10 mg 3-04 tablet 00:00: 00 calcium 2020-0 No 1(1,250 carbonate 3-04 mg) 500 mg 00:00: calcium 00 (1,250 mg) chewable tablet levothyroxi 2020-0 No 1mcg ne 200 mcg 3-04 tablet 00:00: 00 levothyroxi 2020-0 No 1mcg ne 100 mcg 3-04 tablet 00:00: 00 aspirin 81 2019-0 No 1mg mg 1-10 tablet,girma 00:00: yed release 00 sevelamer 2020-0 No 1mg carbonate 1-10 800 mg 00:00: tablet 00 calcium 2020-0 No 1(1,250 carbonate 1-10 mg) 500 mg 00:00: calcium 00 (1,250 mg) chewable tablet levothyroxi 2019-0 No 2mcg ne 125 mcg 1-10 tablet 00:00: 00 amlodipine 2019-0 No 1mg 10 mg 1-08 tablet 00:00: 00 hydrochloro 2019-0 No 1mg thiazide 25 1-07 mg tablet 00:00: 00 indomethaci 2019-0 No 1mg n 50 mg 1-07 capsule 00:00: 00 levothyroxi 2018- No 2mcg ne 125 mcg 2-04 tablet 00:00: 00 amlodipine 2018- No 1mg 10 mg 1-19 tablet 00:00: 00 aspirin 81 2018-05 No 1mg mg 1-19 tablet,girma 00:00: yed release 00 atorvastati 2018- No 1mg n 10 mg 1-19 tablet 00:00: 00 calcium 2018- No 1(1,250 carbonate 1-19 mg) 500 mg 00:00: calcium 00 (1,250 mg) chewable tablet loratadine 2018-05 No 1mg 10 mg 1-12 tablet 00:00: 00 benzonatate 2018- No 1mg 200 mg 1-12 capsule 00:00: 00 gabapentin 2018- Yes [id number] 100mg Take 1 Univers 100 mg 0-22 capsule by ity of capsule 00:00: mouth 3 [place] 00 (three) Medical times Branch daily. aspirin 81 2018-05 No 1mg mg 0-01 tablet,girma 00:00: yed release 00 amlodipine 2018- No 1mg 10 mg 0-01 tablet 00:00: 00 calcium 2018-05 No 1(1,250 carbonate 0-01 mg) 500 mg 00:00: calcium 00 (1,250 mg) chewable tablet calcium 2018-05 No 1(1,250 carbonate 0-01 mg) 500 mg 00:00: calcium 00 (1,250 mg) chewable tablet levothyroxi 2018-05 No 1mcg ne 200 mcg 0-01 tablet 00:00: 00 levothyroxi 2018-05 No 1mcg ne 200 mcg 0-01 tablet 00:00: 00 aspirin 81 2018-05 No 1mg mg 0-01 tablet,girma 00:00: yed release 00 amlodipine 2018-05 No 1mg 5 mg tablet 0-01 00:00: 00 amLODIPine Yes [id number] 10mg Take 1 U nivers 10 mg 9-16 tablet by ity of tablet 00:00: mouth [place] 00 daily. Medical Branch aspirin 81 Yes [id number] 81mg Take 1 Univers mg chewable 9-16 tablet by ity of tablet 00:00: mouth [place] 00 daily. Medical Branch atorvastati Yes [id number] 40mg Take 2 Univers n 20 mg 9-16 tablets by ity of tablet 00:00: mouth at [place] 00 bedtime. Medical Branch calcium Yes [id number] 1000mg Take 2 U nivers carbonate 9-16 tablets by ity of (CALCIUM 00:00: mouth 3 [place] 500) 500 mg 00 (three) Medic al calcium times Branch (1,250 mg) daily with tablet meals. meclizine Yes [id number] 25mg Take 2 U nivers 12.5 mg 9-16 tablets by ity of tablet 00:00: mouth 3 [place] 00 (three) Medical times Branch daily as needed for Dizziness. Para mareo (for dizziness) sevelamer Yes [id number] 800mg Take 1 Univers 800 mg 9-16 tablet by ity of tablet 00:00: mouth 3 [place] 00 (three) Medical times Branch daily with meals. levothyroxi No 1mcg ne 200 mcg 8-22 tablet 00:00: 00 lovastatin No 1mg 20 mg 8-21 tablet 00:00: 00 amlodipine No 1mg 10 mg 8-21 tablet 00:00: 00 levothyroxi No 1mcg ne 150 mcg 8-21 tablet 00:00: 00 Immunizations Ordered Filled Immunization Date Status Comments Sourc e Immunization Name Name Roger PETTY 2021-12-02 Completed Vaccine 00:00:00 Roger CLEMENSID-Michael 2021-02-19 Completed Vaccine 00:00:00 Roger COVID-19 2020-08-01 Completed Vaccine 00:00:00 Roger CLEMENSID-Michael 2020-07-06 Completed Vaccine 00:00:00 Pneumococcal 2018-03-07 Completed University o f Polysaccharide, 00:00:00 [place] Med ical PPSV23 (PNEUMOVAX) Branch Vital Signs Vital Name Observation Time Observation Value Comments Source HEIGHT 2019-11-07 00:00:00 162.6 cm WEIGHT 2019-11-07 00:00:00 76.4 kg Systolic blood 2021-12-02 19:06:00 116 mm[Hg] Univer sity of pressure [facility] Diastolic blood 2021-12-02 19:06:00 68 mm[Hg] Unive rsity of pressure [facility] Heart rate 2021-12-02 19:06:00 69 /min [facility] Body height 2021-12-02 19:06:00 162.6 cm [facility] Body weight 2021-12-02 19:06:00 78.019 kg [facility] BMI 2021-12-02 19:06:00 29.52 kg/m2 [facility] Oxygen saturation in 2021-12-02 19:06:00 95 /min [facility] Arterial blood by [facility] Pulse oximetry Branch HEIGHT 2019-11-07 00:00:00 162.6 cm WEIGHT 2019-11-07 00:00:00 76.4 kg HEIGHT 2019-12-14 00:00:00 162.6 cm WEIGHT 2019-12-14 00:00:00 79.379 kg HEIGHT 2019-12-14 00:00:00 162.6 cm WEIGHT 2019-12-14 00:00:00 79.379 kg BP Systolic 2021-12-04 16:11:00 125 mm[Hg] BP Diastolic 2021-12-04 16:11:00 71 mm[Hg] Weight Measured 2021-12-04 16:11:00 170.60 pounds Height Measured 2021-12-04 16:11:00 63.30 inches Body Temperature 2021-12-04 16:11:00 98.30 degrees Heart Rate 2021-12-04 16:11:00 73.00 /min Respiratory Rate 2021-12-04 16:11:00 18.00 /min BP Systolic 2021-12-02 11:12:00 112 mm[Hg] BP Diastolic 2021-12-02 11:12:00 70 mm[Hg] Weight Measured 2021-12-02 11:12:00 172.80 pounds Height Measured 2021-12-02 11:12:00 63.30 inches Body Temperature 2021-12-02 11:12:00 98.20 degrees Heart Rate 2021-12-02 11:12:00 67.00 /min Respiratory Rate 2021-12-02 11:12:00 18.00 /min BP Systolic 2021-08-28 15:27:00 129 mm[Hg] BP Diastolic 2021-08-28 15:27:00 70 mm[Hg] Weight Measured 2021-08-28 15:27:00 168.00 pounds Height Measured 2021-08-28 15:27:00 63.30 inches Body Temperature 2021-08-28 15:27:00 97.60 degrees Heart Rate 2021-08-28 15:27:00 69.00 /min Respiratory Rate 2021-08-28 15:27:00 BP Systolic 2021-08-12 11:13:00 124 mm[Hg] BP Diastolic 2021-08-12 11:13:00 68 mm[Hg] Weight Measured 2021-08-12 11:13:00 167.80 pounds Height Measured 2021-08-12 11:13:00 63.30 inches Body Temperature 2021-08-12 11:13:00 97.40 degrees Heart Rate 2021-08-12 11:13:00 81.00 /min Respiratory Rate 2021-08-12 11:13:00 21.00 /min BP Systolic 2021-07-31 16:11:00 BP Diastolic 2021-07-31 16:11:00 Weight Measured 2021-07-31 16:11:00 171.96 pounds Height Measured 2021-07-31 16:11:00 63.30 inches Body Temperature 2021-07-31 16:11:00 Heart Rate 2021-07-31 16:11:00 Respiratory Rate 2021-07-31 16:11:00 BP Systolic 2021-05-15 14:21:00 131 mm[Hg] BP Diastolic 2021-05-15 14:21:00 67 mm[Hg] Weight Measured 2021-05-15 14:21:00 171.60 pounds Height Measured 2021-05-15 14:21:00 63.30 inches Body Temperature 2021-05-15 14:21:00 98.10 degrees Heart Rate 2021-05-15 14:21:00 73.00 /min Respiratory Rate 2021-05-15 14:21:00 17.00 /min BP Systolic 2021-04-22 16:43:00 152 mm[Hg] BP Diastolic 2021-04-22 16:43:00 80 mm[Hg] Weight Measured 2021-04-22 16:43:00 167.20 pounds Height Measured 2021-04-22 16:43:00 63.30 inches Body Temperature 2021-04-22 16:43:00 98.30 degrees Heart Rate 2021-04-22 16:43:00 70.00 /min Respiratory Rate 2021-04-22 16:43:00 18.00 /min BP Systolic 2021-04-17 10:43:00 126 mm[Hg] BP Diastolic 2021-04-17 10:43:00 74 mm[Hg] Weight Measured 2021-04-17 10:43:00 165.00 pounds Height Measured 2021-04-17 10:43:00 63.30 inches Body Temperature 2021-04-17 10:43:00 97.80 degrees Heart Rate 2021-04-17 10:43:00 70.00 /min Respiratory Rate 2021-04-17 10:43:00 17.00 /min BP Systolic 2021-04-10 17:21:00 151 mm[Hg] BP Diastolic 2021-04-10 17:21:00 79 mm[Hg] Weight Measured 2021-04-10 17:21:00 167.60 pounds Height Measured 2021-04-10 17:21:00 63.30 inches Body Temperature 2021-04-10 17:21:00 98.10 degrees Heart Rate 2021-04-10 17:21:00 73.00 /min Respiratory Rate 2021-04-10 17:21:00 BP Systolic 2021-04-08 08:34:00 145 mm[Hg] BP Diastolic 2021-04-08 08:34:00 82 mm[Hg] Weight Measured 2021-04-08 08:34:00 167.60 pounds Height Measured 2021-04-08 08:34:00 63.30 inches Body Temperature 2021-04-08 08:34:00 98.30 degrees Heart Rate 2021-04-08 08:34:00 76.00 /min Respiratory Rate 2021-04-08 08:34:00 18.00 /min Procedures This patient has no known procedures. Plan of Care Planned Activity Planned Date Details Comments Source Goal Plan of Care Note [code = 97556-3] Goal Plan of Care Note [code = 32751-3] Goal Plan of Care Note [code = 91152-4] Goal Plan of Care Note [code = 19479-3] Goal Plan of Care Note [code = 44430-4] Goal Plan of Care Note [code = 57848-0] Goal Plan of Care Note [code = 82164-3] Goal Plan of Care Note [code = 06526-2] Goal Plan of Care Note [code = 13815-0] Goal Plan of Care Note [code = 40946-3] Goal Plan of Care Note [code = 02784-6] Goal Plan of Care Note [code = 31707-2] Goal Plan of Care Note [code = 56010-2] Goal Plan of Care Note [code = 73560-0] Goal Plan of Care Note [code = 90437-7] Goal Plan of Care Note [code = 62628-5] Goal Plan of Care Note [code = 12296-0] Goal Plan of Care Note [code = 19572-0] Goal Plan of Care Note [code = 95523-7] Goal Plan of Care Note [code = 37167-7] Goal Plan of Care Note [code = 92372-4] Goal Plan of Care Note [code = 22616-3] Goal Plan of Care Note [code = 82313-3] Goal Plan of Care Note [code = 76757-3] Goal Plan of Care Note [code = 45249-9] Goal Plan of Care Note [code = 15439-2] Goal Plan of Care Note [code = 38105-7] Goal Plan of Care Note [code = 48845-3] Goal Plan of Care Note [code = 18915-8] Goal Plan of Care Note [code = 74287-8] Goal Plan of Care Note [code = 78252-9] Goal Plan of Care Note [code = 35523-1] Goal Plan of Care Note [code = 45386-6] Goal Plan of Care Note [code = 05920-2] Goal Plan of Care Note [code = 09770-5] Goal Plan of Care Note [code = 79708-7] Goal Plan of Care Note [code = 89121-0] Goal Plan of Care Note [code = 03753-9] Goal Plan of Care Note [code = 89782-5] Goal Plan of Care Note [code = 43492-2] Goal Plan of Care Note [code = 52604-0] Goal Plan of Care Note [code = 43325-9] Encounters Start End Encounter Admission Attending Care Care Encounter Source Date/Time Date/Time Type Type Clinicians Facility Department ID 2021-02-05 Outpatient BHARAT, [facility] [id number] SLE 05:27:44 IRMA 2021-02-04 Outpatient ALAM, [facility] Surgery [id number] SLE 23:01:57 SYLVAIN 2021-12-04 2021-12-04 Outpatient [id number] 00:00:00 00:00:00 Visit [id number] 2021-12-02 2021-12-02 Office Khoa [facility] [id number] 14:30:00 14:57:05 Visit [facility] [id number] it y of EXIRA 4.2.7.2.686 Tony as CAR?BLEA [id number] [address] MEDICAL OFFICE [facility] 2020-10-08 2020-10-08 Telephone Benedict CTKALEIGH [id number] 00:00:00 00:00:00 Sam Doherty [id number] [place] 4.2.7.2.686 Professio [id number] nal 220 [facility] 2020-10-07 2020-10-07 Orders Doctor BRIANNE [id number] 00:00:00 00:00:00 Only Unassigned, RONNY [id number] [place] [facility] 4.2.7.2.686 [id number] 2020-08-20 2020-08-20 Office Bandar, [facility] [id number] 13:15:09 13:42:21 Visit Dean Doherty [id number] [place] 4.2.7.2.686 [place] [id number] nal 059 [facility] 2019-12-14 2019-12-14 Outpatient [facility] [id number] [facility] 00:00:00 00:00:00 2019-11-14 2019-11-14 Outpatient EL GIPSON, [facility] [id number] [facility] 00:00:00 00:00:00 HUNTER 2019-11-14 2019-11-14 Outpatient [facility] [id number] [facility] 00:00:00 00:00:00 2019-11-14 2019-11-14 Outpatient EL [facility] [id number] [facility] 00:00:00 00:00:00 2019-10-31 2019-10-31 Outpatient [facility] [id number] [facility] 00:00:00 00:00:00 2019-10-31 2019-10-31 Outpatient [facility] [id number] [facility] 00:00:00 00:00:00 2019-10-17 2019-10-17 Outpatient [facility] [id number] [facility] 00:00:00 00:00:00 2019-10-17 2019-10-17 Outpatient EL [facility] [id number] [facility] 00:00:00 00:00:00 2019-07-13 2019-07-13 Outpatient [facility] [id number] [facility] 00:00:00 00:00:00 [id number] 2019-06-15 2019-06-15 Outpatient [facility] [id number] 2-2 [facility] 00:00:00 00:00:00 [id number] Results Test Description Test Time Test Comments Results Result Comments Source CBC W/AUTO DIFF WITH PLATELETS 2021-12-03 09:42:23 Test Item Value Reference Range Interpretation Comme nts WBC (test code = 1001) 10.4 K/UL 3.5-11.0 RBC (test code = 1002) 3.80 M/UL 4.50-6.10 L HEMOGLOBIN (test code = 1003) 12.3 G/DL 13.5-17.0 L HEMATOCRIT (test code = 1004) 34.1 % 40.0-51.0 L MCV (test code = 1005) 89.7 fL 80.0-99.0 MCH (test code = 1006) 32.4 PG 25.0-33.0 MCHC (test code = 1007) 36.1 G/DL 31.0-36.0 H RDW (test code = 1038) 13.6 % 11.5-15.0 NEUTROPHILS (test code = 71.5 % 1008) LYMPHOCYTES (test code = 19.4 % 1010) MONOCYTES (test code = 1011) 6.2 % EOSINOPHILS (test code = 1.8 % 1012) BASOPHILS (test code = 1013) 0.7 % IMMATURE GRANULOCYTES (test 0.4 % code = 1036) NUCLEATED RBCS (test code = 0.0 /100 WBC'S See_Comment [Automated message] The 1065) system which ge nerated this result transmit kailey reference range : 0.0. The reference range was not used to interpr et this result as ryne l/abnormal. PLATELET COUNT (test code = 332 K/UL [phone]) ABSOLUTE NEUTROPHILS (test 7.46 K/UL 1.50-7.50 code = 1066) ABSOLUTE LYMPHOCYTES (test 2.03 K/UL 1.00-4.00 code = 1067) ABSOLUTE MONOCYTES (test code 0.65 K/UL 0.20-1.00 = 1068) ABSOLUTE EOSINOPHILS (test 0.19 K/UL 0.00-0.50 code = 1040) ABSOLUTE BASOPHILS (test code 0.07 K/UL 0.00-0.20 = 1069) ABS IMMATURE GRANULOCYTES 0.04 K/UL 0.00-0.10 (test code = 1020) ABS NUCLEATED RBCS (test code 0.00 K/UL 0.00-0.11 = 70237) HEMOGLOBIN [id number] 09:27:39 Test Item Value Reference Range Interpretation Comments HEMOGLOBIN A1c (test code = 40117) 6.2 % 4.2-5.6 H TSH, THIRD [id number] 06:43:39 Test Item Value Reference Range Interpretation Comments TSH, THIRD GENERATION (test 82.000 UIU/ML 0.400-4.100 H code = 2821) HIV 1/2 4TH GEN, RFLX [id number] 05:21:13 Test Item Value Reference Range Interpretation Comments HIV 1/2 4TH GEN, RFLX CONF (test NON-REACTIVE NON-REACTIVE code = 3514) HEPATITIS PANEL, [id number] 05:21:13 Test Item Value Reference Range Interpretation Comments HEPATITIS A IgM (test NON-REACTIVE NON-REACTIVE code = 77642) HEPATITIS B CORE IgM NON-REACTIVE NON-REACTIVE (test code = 4644) HEPATITIS B SURF AG NON-REACTIVE NON-REACTIVE (test code = 2739) HEPATITIS C ANTIBODY NON-REACTIVE NON-REACTIVE (test code = 4675) INTERPRETATION (NOTE) Hepatitis A HEPATITIS A: (test serology shows no code = 2552) evidence of acu te hepatitis A. INTERPRETATION (NOTE) Hepatitis B HEPATITIS B: (test serology shows no code = 09932) evidence of ac marty hepatitis B and no indication of exposure to hepatitis B vir us in the previous si xto eight months. INTERPRETATION (NOTE) Hepatitis C HEPATITIS C: (test serology shows no code = 22261) evidence of ex posure to hepatitisC v irus at this time. I t can take up to 12 m onths after exposure tothe hepatitis C vir us for antibodies to become detectab le in the blood in ce rtain patients. UNLES S OTHERWISE INDIC ATED, ALL TESTING PERFORMED [facility], [place]. [address] [facility], [place] [address] LABORATORY DIRE CTOR: Chuckie HARMON [id number] CAP ACCREDITATION N O. [id number] LIPID [id number] 03:30:59 Test Item Value Reference Range Interpretation Comments CHOLESTEROL (test 196 MG/DL <200 code = 2210) TRIGLYCERIDES (test 486 MG/DL <150 H code = 2232) HDL CHOLESTEROL 44 MG/DL >39 (test code = 2220) CALC LDL CHOL (test (NOTE) MG/DL <100 UNABLE T O CALCULATE A code = 2237) VALID LDL MARKY STEROL WHEN THE TRIGLYCERIDEVAL UE IS GREATER THAN 40 0 MG/DL.UNABLE TO CALCULATE A CARLOS ID LDL CHOLESTEROL WHE N THE TRIGLYCERIDEVAL UE IS GREATER THAN 40 0 MG/DL. NOTE: CALCULATE D LDL IS BASED ON IRAM -NIETO METHOD WHICHINC LUDES ADJUSTABLE TRIGLYCERIDE:VL DL CHOLESTEROL RAT IO.THIS FACTOR VARIES B Y MEASURED TRIGLY CERIDE AND NON-HDLCHOL ESTEROL CONCENTRATIONS WITH INCREASED CALCU LATED LDL SEENIN HIGH ER TRIGLYCERIDE OR LOWER NON-HDL SPECIME NS. FOR MOREINFORMATION , SEE CLIENT ANNOUNCE MENT AT [email or web address] CalcLDL-C RISK RATIO LDL/HDL (NOTE) RATIO <3.55 UNABLE T O CALCULATE (test code = 2238) COMPREHENSIVE METABOLIC [id number] 03:30:59 Test Item Value Reference Range Interpretation Comments GLUCOSE (test code = 117 MG/DL 70-99 H 2216) BUN (test code = 54 MG/DL 6-20 H 2207) CREATININE (test 11.27 MG/DL 0.80-1.40 H code = 221) eGFR (2020 CKD-EPI) 5 ML/MIN/1.73 >60 L (test code = 81011) CALC BUN/CREAT (test 5 RATIO 6-28 L code = 223) SODIUM (test code = 139 MEQ/L 214-734 5553) POTASSIUM (test code 4.2 MEQ/L 3.5-5.4 = 2227) CHLORIDE (test code 95 MEQ/L 95-107 = 2214) CARBON DIOXIDE (test 23 MEQ/L 19-31 code = 2206) CALCIUM (test code = 8.8 MG/DL 8.5-10.5 2208) PROTEIN, TOTAL (test 8.5 G/DL 6.1-8.3 H code = 222) ALBUMIN (test code = 5.3 G/DL 3.5-5.2 H 2200) CALC GLOBULIN (test 3.2 G/DL 1.9-3.7 code = 2240) CALC A/G RATIO (test 1.7 RATIO 1.0-2.6 code = 2234) BILIRUBIN, TOTAL 0.3 MG/DL See_Comment [Automated message] (test code = 2206) The syste m which generated this result transmit kailey reference range : <=1.2. The refe rence range was not u sed to interpret th is result as normal/abnormal . ALKALINE PHOSPHATASE 70 U/L 40-123 (test code = 2203) AST (test code = 6 U/L 9-50 L 8) ALT (test code = 8 U/L 5-50 9) CBC W/AUTO [id number] 00:00:00 Test Item Value Reference Range Interpretation Comments WBC (test code = 1001) 10.4 K/UL RBC (test code = 1002) 3.80 M/UL HEMOGLOBIN (test code = 1003) 12.3 G/DL HEMATOCRIT (test code = 1004) 34.1 % MCV (test code = 1005) 89.7 fL MCH (test code = 1006) 32.4 PG MCHC (test code = 1007) 36.1 G/DL RDW (test code = 1038) 13.6 % NEUTROPHILS (test code = 1008) 71.5 % LYMPHOCYTES (test code = 1010) 19.4 % MONOCYTES (test code = 1011) 6.2 % EOSINOPHILS (test code = 1012) 1.8 % BASOPHILS (test code = 1013) 0.7 % IMMATURE GRANULOCYTES (test 0.4 % code = 1036) NUCLEATED RBCS (test code = 0.0 /100WBC'S 1065) PLATELET COUNT (test code = 332 K/UL 1015) ABSOLUTE NEUTROPHILS (test code 7.46 K/UL = 1066) ABSOLUTE LYMPHOCYTES (test code 2.03 K/UL = 1067) ABSOLUTE MONOCYTES (test code = 0.65 K/UL 1068) ABSOLUTE EOSINOPHILS (test code 0.19 K/UL = 1040) ABSOLUTE BASOPHILS (test code = 0.07 K/UL 1069) ABS IMMATURE GRANULOCYTES (test 0.04 K/UL code = 1020) ABS NUCLEATED RBCS (test code = 0.00 K/UL 16961) CBC W/AUTO [id number] 00:00:00 Test Item Value Reference Range Interpretation Comments WBC (test code = 1001) 10.4 K/UL RBC (test code = 1002) 3.80 M/UL HEMOGLOBIN (test code = 1003) 12.3 G/DL HEMATOCRIT (test code = 1004) 34.1 % MCV (test code = 1005) 89.7 fL MCH (test code = 1006) 32.4 PG MCHC (test code = 1007) 36.1 G/DL RDW (test code = 1038) 13.6 % NEUTROPHILS (test code = 1008) 71.5 % LYMPHOCYTES (test code = 1010) 19.4 % MONOCYTES (test code = 1011) 6.2 % EOSINOPHILS (test code = 1012) 1.8 % BASOPHILS (test code = 1013) 0.7 % IMMATURE GRANULOCYTES (test 0.4 % code = 1036) NUCLEATED RBCS (test code = 0.0 /100WBC'S 1065) PLATELET COUNT (test code = 332 K/UL 1015) ABSOLUTE NEUTROPHILS (test code 7.46 K/UL = 1066) ABSOLUTE LYMPHOCYTES (test code 2.03 K/UL = 1067) ABSOLUTE MONOCYTES (test code = 0.65 K/UL 1068) ABSOLUTE EOSINOPHILS (test code 0.19 K/UL = 1040) ABSOLUTE BASOPHILS (test code = 0.07 K/UL 1069) ABS IMMATURE GRANULOCYTES (test 0.04 K/UL code = 1020) ABS NUCLEATED RBCS (test code = 0.00 K/UL 24742) HEMOGLOBIN [id number] 00:00:00 Test Item Value Reference Range Interpretation Comments HEMOGLOBIN A1c (test code = 24446) 6.2 % HEMOGLOBIN [id number] 00:00:00 Test Item Value Reference Range Interpretation Comments HEMOGLOBIN A1c (test code = 68996) 6.2 % LIPID [id number] 00:00:00 Test Item Value Reference Range Interpretation Comments CHOLESTEROL (test code = 2210) 196 MG/DL TRIGLYCERIDES (test code = 2232) 486 MG/DL HDL CHOLESTEROL (test code = 44 MG/DL 2220) CALC LDL CHOL (test code = 2237) (NOTE) MG/DL RISK RATIO LDL/HDL (test code = (NOTE) RATIO 2238) COMPREHENSIVE METABOLIC [id number] 00:00:00 Test Item Value Reference Range Interpretation Comments GLUCOSE (test code = 2217) 117 MG/DL BUN (test code = 2208) 54 MG/DL CREATININE (test code = 2214) 11.27 MG/DL eGFR (2020 CKD-EPI) (test code 5 ML/MIN/1.73 = 40676) CALC BUN/CREAT (test code = 5 RATIO 5) SODIUM (test code = 2231) 139 MEQ/L POTASSIUM (test code = 2228) 4.2 MEQ/L CHLORIDE (test code = 2215) 95 MEQ/L CARBON DIOXIDE (test code = 23 MEQ/L 2205) CALCIUM (test code = 2209) 8.8 MG/DL PROTEIN, TOTAL (test code = 8.5 G/DL 2228) ALBUMIN (test code = 2201) 5.3 G/DL CALC GLOBULIN (test code = 3.2 G/DL 2239) CALC A/G RATIO (test code = 1.7 RATIO 2233) BILIRUBIN, TOTAL (test code = 0.3 MG/DL 2206) ALKALINE PHOSPHATASE (test code 70 U/L = 2203) AST (test code = 2218) 6 U/L ALT (test code = 2219) 8 U/L [id number] 00:00:00 Test Item Value Reference Range Interpretation Comments TSH, THIRD GENERATION (test 82.000 UIU/ML code = 2821) [id number] 00:00:00 Test Item Value Reference Range Interpretation Comments TSH, THIRD GENERATION (test 82.000 UIU/ML code = 2821) HIV AB/AG COMBO RFLX [id number] 00:00:00 Test Item Value Reference Range Interpretation Comments HIV 1/2 4TH GEN, RFLX CONF (test NON-REACTIVE code = 3514) ACUTE HEPATITIS [id number] 00:00:00 Test Item Value Reference Range Interpretation Comments HEPATITIS A IgM (test code = NON-REACTIVE 84980) HEPATITIS B CORE IgM (test code NON-REACTIVE = 2044) HEPATITIS B SURF AG (test code = NON-REACTIVE 0916) HEPATITIS C ANTIBODY (test code NON-REACTIVE = 7898) INTERPRETATION HEPATITIS A: (NOTE) (test code = 2552) INTERPRETATION HEPATITIS B: (NOTE) (test code = 19652) INTERPRETATION HEPATITIS C: (NOTE) (test code = 89366) TSH, THIRD [id number] 05:58:13 Test Item Value Reference Range Interpretation Comments TSH, THIRD 33.700 UIU/ML 0.400-4.100 H UNLESS OTHERW ISE GENERATION (test INDICATED, ALL code = 2821) TESTING PERFORM ED ATCLINICAL PATH [facility], [facility]. [address] [place] [address] [facility] [place] DIRECTOR: LATOYA MCCALL M.D. CLIA NUMBER [id number] CAP ACCREDITATION N O. [id number] HEMOGLOBIN [id number] 02:44:08 Test Item Value Reference Range Interpretation Comments HEMOGLOBIN A1c (test 7.0 % 4.2-5.6 H AMERIC AN DIABETES code = 03425) ASSOCIATION IDELINES FOR HGB A1C: PREDIABETES/INC REASED RISK . . . . . . . 5.7 -6.4% DIAGNOSIS OF DI ABETES . . . . . . . . . >=6 .5% WITH CONFIRMATION OR APPROPRIATE SYMPTOMS NOTE: ASSAY MAY BE AFFECTED BY HEMOGLOBINOPATH IES (SICKLE CELL ANEMIA, S- C DISEASE, OTHERS) OR MALA FICIALLY LOWERED BY DECR EASED RED CELL SURVIVAL ( HEMOLYTIC ANEMIAS, BLOOD LOSS, ETC.). CONSIDER ALTERN ATE TESTING OR LABORATORY C ONSULTATION. HEMOGLOBIN A1c [ADDED]2021-05-16 00:00:00 Test Item Value Reference Range Interpretation Comments HEMOGLOBIN A1c (test code = 91590) 7.0 % HEMOGLOBIN A1c [ADDED]2021-05-16 00:00:00 Test Item Value Reference Range Interpretation Comments HEMOGLOBIN A1c (test code = 40247) 7.0 % TSH, THIRD GENERATION [ADDED]2021-05-16 00:00:00 Test Item Value Reference Range Interpretation Comments TSH, THIRD GENERATION (test 33.700 UIU/ML code = 2821) TSH, THIRD GENERATION [ADDED]2021-05-16 00:00:00 Test Item Value Reference Range Interpretation Comments TSH, THIRD GENERATION (test 33.700 UIU/ML code = 2821) CBC W/AUTO [id number] 00:00:00 Test Item Value Reference Range Interpretation Comments WBC (test code = 1001) 9.1 K/UL RBC (test code = 1002) 4.20 M/UL HEMOGLOBIN (test code = 1003) 12.5 G/DL HEMATOCRIT (test code = 1004) 37.2 % MCV (test code = 1005) 88.6 fL MCH (test code = 1006) 29.8 PG MCHC (test code = 1007) 33.6 G/DL RDW (test code = 1038) 14.0 % NEUTROPHILS (test code = 1008) 69.2 % LYMPHOCYTES (test code = 1010) 20.7 % MONOCYTES (test code = 1011) 6.0 % EOSINOPHILS (test code = 1012) 3.0 % BASOPHILS (test code = 1013) 0.9 % IMMATURE GRANYLOCYTES (test 0.2 % code = 1036) NUCLEATED RBCS (test code = 0.0 /100WBC'S 1065) PLATELET COUNT (test code = 337 K/UL 1015) ABSOLUTE NEUTROPHILS (test code 6.30 K/UL = 1066) ABSOLUTE LYMPHOCYTES (test code 1.89 K/UL = 1067) ABSOLUTE MONOCYTES (test code = 0.55 K/UL 1068) ABSOLUTE EOSINOPHILS (test code 0.27 K/UL = 1040) ABSOLUTE BASOPHILS (test code = 0.08 K/UL 1069) ABS IMMATURE GRANULOCYTES (test 0.02 K/UL code = 1020) ABS NUCLEATED RBCS (test code = 0.00 K/UL 21041) CBC W/AUTO [id number] 00:00:00 Test Item Value Reference Range Interpretation Comments WBC (test code = 1001) 9.1 K/UL RBC (test code = 1002) 4.20 M/UL HEMOGLOBIN (test code = 1003) 12.5 G/DL HEMATOCRIT (test code = 1004) 37.2 % MCV (test code = 1005) 88.6 fL MCH (test code = 1006) 29.8 PG MCHC (test code = 1007) 33.6 G/DL RDW (test code = 1038) 14.0 % NEUTROPHILS (test code = 1008) 69.2 % LYMPHOCYTES (test code = 1010) 20.7 % MONOCYTES (test code = 1011) 6.0 % EOSINOPHILS (test code = 1012) 3.0 % BASOPHILS (test code = 1013) 0.9 % IMMATURE GRANYLOCYTES (test 0.2 % code = 1036) NUCLEATED RBCS (test code = 0.0 /100WBC'S 1065) PLATELET COUNT (test code = 337 K/UL 1015) ABSOLUTE NEUTROPHILS (test code 6.30 K/UL = 1066) ABSOLUTE LYMPHOCYTES (test code 1.89 K/UL = 1067) ABSOLUTE MONOCYTES (test code = 0.55 K/UL 1068) ABSOLUTE EOSINOPHILS (test code 0.27 K/UL = 1040) ABSOLUTE BASOPHILS (test code = 0.08 K/UL 1069) ABS IMMATURE GRANULOCYTES (test 0.02 K/UL code = 1020) ABS NUCLEATED RBCS (test code = 0.00 K/UL 87565) COMPREHENSIVE METABOLIC [id number] 00:00:00 Test Item Value Reference Range Interpretation Comments GLUCOSE (test code = 2217) 317 MG/DL BUN (test code = 2208) 41 MG/DL CREATININE (test code = 2214) 6.82 MG/DL eGFR (2020 CKD-EPI) (test code 8 ML/MIN/1.73 = 08126) CALC BUN/CREAT (test code = 6 RATIO 2235) SODIUM (test code = 2231) 137 MEQ/L POTASSIUM (test code = 2228) 3.8 MEQ/L CHLORIDE (test code = 2215) 91 MEQ/L CARBON DIOXIDE (test code = 25 MEQ/L 2205) CALCIUM (test code = 2209) 9.6 MG/DL PROTEIN, TOTAL (test code = 8.7 G/DL 2228) ALBUMIN (test code = 2201) 5.5 G/DL CALC GLOBULIN (test code = 3.2 G/DL 2239) CALC A/G RATIO (test code = 1.7 RATIO 2233) BILIRUBIN, TOTAL (test code = 0.3 MG/DL 2206) ALKALINE PHOSPHATASE (test code 118 U/L = 2204) AST (test code = 2218) 13 U/L ALT (test code = 2219) 22 U/L [id number] 00:00:00 Test Item Value Reference Range Interpretation Comments AMYLASE (test code = 2205) 168 U/L [id number] 00:00:00 Test Item Value Reference Range Interpretation Comments LIPASE (test code = 2057) 116 U/L [id number] 00:00:00 Test Item Value Reference Range Interpretation Comments LIPASE (test code = 2057) 116 U/L [id number] 00:00:00 Test Item Value Reference Range Interpretation Comments TSH, THIRD GENERATION (test >100.000 UIU/ML code = 2821) [id number] 00:00:00 Test Item Value Reference Range Interpretation Comments TSH, THIRD GENERATION (test >100.000 UIU/ML code = 2821) LIPID [id number] 00:00:00 Test Item Value Reference Range Interpretation Comments CHOLESTEROL (test code = 2210) 308 MG/DL TRIGLYCERIDES (test code = 2232) 280 MG/DL HDL CHOLESTEROL (test code = 2220) 66 MG/DL CALC LDL CHOL (test code = 2237) 192 MG/DL RISK RATIO LDL/HDL (test code = 2.91 RATIO 2238) CBC W/AUTO [id number] 00:00:00 Test Item Value Reference Range Interpretation Comments WBC (test code = 1001) 8.8 K/UL RBC (test code = 1002) 5.03 M/UL HEMOGLOBIN (test code = 1003) 15.5 G/DL HEMATOCRIT (test code = 1004) 44.6 % MCV (test code = 1005) 88.7 fL MCH (test code = 1006) 30.8 PG MCHC (test code = 1007) 34.8 G/DL RDW (test code = 1038) 14.2 % NEUTROPHILS (test code = 1008) 68.1 % LYMPHOCYTES (test code = 1010) 22.7 % MONOCYTES (test code = 1011) 5.2 % EOSINOPHILS (test code = 1012) 2.4 % BASOPHILS (test code = 1013) 1.1 % IMMATURE GRANULOCYTES (test 0.5 % code = 1036) NUCLEATED RBCS (test code = 0.0 /100WBC'S 1065) PLATELET COUNT (test code = 324 K/UL 1015) ABSOLUTE NEUTROPHILS (test code 6.02 K/UL = 1066) ABSOLUTE LYMPHOCYTES (test code 2.00 K/UL = 1067) ABSOLUTE MONOCYTES (test code = 0.46 K/UL 1068) ABSOLUTE EOSINOPHILS (test code 0.21 K/UL = 1040) ABSOLUTE BASOPHILS (test code = 0.10 K/UL 1069) ABS IMMATURE GRANULOCYTES (test 0.04 K/UL code = 1020) ABS NUCLEATED RBCS (test code = 0.00 K/UL 99981) CBC W/AUTO [id number] 00:00:00 Test Item Value Reference Range Interpretation Comments WBC (test code = 1001) 8.8 K/UL RBC (test code = 1002) 5.03 M/UL HEMOGLOBIN (test code = 1003) 15.5 G/DL HEMATOCRIT (test code = 1004) 44.6 % MCV (test code = 1005) 88.7 fL MCH (test code = 1006) 30.8 PG MCHC (test code = 1007) 34.8 G/DL RDW (test code = 1038) 14.2 % NEUTROPHILS (test code = 1008) 68.1 % LYMPHOCYTES (test code = 1010) 22.7 % MONOCYTES (test code = 1011) 5.2 % EOSINOPHILS (test code = 1012) 2.4 % BASOPHILS (test code = 1013) 1.1 % IMMATURE GRANULOCYTES (test 0.5 % code = 1036) NUCLEATED RBCS (test code = 0.0 /100WBC'S 1065) PLATELET COUNT (test code = 324 K/UL 1015) ABSOLUTE NEUTROPHILS (test code 6.02 K/UL = 1066) ABSOLUTE LYMPHOCYTES (test code 2.00 K/UL = 1067) ABSOLUTE MONOCYTES (test code = 0.46 K/UL 1068) ABSOLUTE EOSINOPHILS (test code 0.21 K/UL = 1040) ABSOLUTE BASOPHILS (test code = 0.10 K/UL 1069) ABS IMMATURE GRANULOCYTES (test 0.04 K/UL code = 1020) ABS NUCLEATED RBCS (test code = 0.00 K/UL 95743) COMPREHENSIVE METABOLIC [id number] 00:00:00 Test Item Value Reference Range Interpretation Comments GLUCOSE (test code = 2217) 137 MG/DL BUN (test code = 2208) 56 MG/DL CREATININE (test code = 2214) 10.21 MG/DL eGFR AMER. (test code = 6 ML/MIN/1.73 25162) eGFR NON- AMER. (test 5 ML/MIN/1.73 code = 13380) CALC BUN/CREAT (test code = 5 RATIO 2235) SODIUM (test code = 2231) 141 MEQ/L POTASSIUM (test code = 2228) 4.4 MEQ/L CHLORIDE (test code = 2215) 93 MEQ/L CARBON DIOXIDE (test code = 24 MEQ/L 220) CALCIUM (test code = 2209) 9.5 MG/DL PROTEIN, TOTAL (test code = 8.7 G/DL 2228) ALBUMIN (test code = 2201) 5.5 G/DL CALC GLOBULIN (test code = 3.2 G/DL 2240) CALC A/G RATIO (test code = 1.7 RATIO 2234) BILIRUBIN, TOTAL (test code = 0.4 MG/DL 2207) ALKALINE PHOSPHATASE (test code 83 U/L = 2204) AST (test code = 2218) 13 U/L ALT (test code = 2219) 16 U/L HEMOGLOBIN [id number] 00:00:00 Test Item Value Reference Range Interpretation Comments HEMOGLOBIN A1c (test code = 52461) 5.5 % HEMOGLOBIN [id number] 00:00:00 Test Item Value Reference Range Interpretation Comments HEMOGLOBIN A1c (test code = 62922) 5.5 % [id number] 00:00:00 Test Item Value Reference Range Interpretation Comments TSH, THIRD GENERATION (test >100.000 UIU/ML code = 2821) [id number] 00:00:00 Test Item Value Reference Range Interpretation Comments TSH, THIRD GENERATION (test >100.000 UIU/ML code = 2821) CBC W/AUTO [id number] 00:00:00 Test Item Value Reference Range Interpretation Comments WBC (test code = 1001) 7.3 K/UL RBC (test code = 1002) 4.14 M/UL HEMOGLOBIN (test code = 1003) 13.2 G/DL HEMATOCRIT (test code = 1004) 37.9 % MCV (test code = 1005) 91.5 fL MCH (test code = 1006) 31.9 PG MCHC (test code = 1007) 34.8 G/DL RDW (test code = 1038) 14.4 % NEUTROPHILS (test code = 1008) 74.3 % LYMPHOCYTES (test code = 1010) 17.1 % MONOCYTES (test code = 1011) 5.6 % EOSINOPHILS (test code = 1012) 1.6 % BASOPHILS (test code = 1013) 1.4 % PLATELET COUNT (test code = 1015) 298 K/UL CBC W/AUTO [id number] 00:00:00 Test Item Value Reference Range Interpretation Comments WBC (test code = 1001) 7.3 K/UL RBC (test code = 1002) 4.14 M/UL HEMOGLOBIN (test code = 1003) 13.2 G/DL HEMATOCRIT (test code = 1004) 37.9 % MCV (test code = 1005) 91.5 fL MCH (test code = 1006) 31.9 PG MCHC (test code = 1007) 34.8 G/DL RDW (test code = 1038) 14.4 % NEUTROPHILS (test code = 1008) 74.3 % LYMPHOCYTES (test code = 1010) 17.1 % MONOCYTES (test code = 1011) 5.6 % EOSINOPHILS (test code = 1012) 1.6 % BASOPHILS (test code = 1013) 1.4 % PLATELET COUNT (test code = 1015) 298 K/UL COMPREHENSIVE METABOLIC [id number] 00:00:00 Test Item Value Reference Range Interpretation Comments GLUCOSE (test code = 2217) 228 MG/DL BUN (test code = 2208) 23 MG/DL CREATININE (test code = 2214) 5.99 MG/DL eGFR AMER. (test code 11 ML/MIN/1.73 = 81930) eGFR NON- AMER. (test 10 ML/MIN/1.73 code = 21899) CALC BUN/CREAT (test code = 4 RATIO 2235) SODIUM (test code = 2231) 137 MEQ/L POTASSIUM (test code = 2228) 3.7 MEQ/L CHLORIDE (test code = 2215) 91 MEQ/L CARBON DIOXIDE (test code = 29 MEQ/L 2206) CALCIUM (test code = 2209) 9.7 MG/DL PROTEIN, TOTAL (test code = 8.5 G/DL 222) ALBUMIN (test code = 2201) 5.3 G/DL CALC GLOBULIN (test code = 3.2 G/DL 2240) CALC A/G RATIO (test code = 1.7 RATIO 2234) BILIRUBIN, TOTAL (test code = 0.3 MG/DL 220) ALKALINE PHOSPHATASE (test 66 U/L code = 2204) AST (test code = 2218) 22 U/L ALT (test code = 2219) 24 U/L LIPID [id number] 00:00:00 Test Item Value Reference Range Interpretation Comments CHOLESTEROL (test code = 2210) 335 MG/DL TRIGLYCERIDES (test code = 2232) 446 MG/DL HDL CHOLESTEROL (test code = 73 MG/DL 2220) CALC LDL CHOL (test code = 2237) (NOTE) MG/DL RISK RATIO LDL/HDL (test code = (NOTE) RATIO 2238) [id number] 00:00:00 Test Item Value Reference Range Interpretation Comments TSH, THIRD GENERATION (test >100.000 UIU/ML code = 2821) [id number] 00:00:00 Test Item Value Reference Range Interpretation Comments TSH, THIRD GENERATION (test >100.000 UIU/ML code = 2821) [id number] 00:00:00 Test Item Value Reference Range Interpretation Comments TSH, THIRD GENERATION (test >100.000 UIU/ML code = 2821) [id number] 00:00:00 Test Item Value Reference Range Interpretation Comments TSH, THIRD GENERATION (test >100.000 UIU/ML code = 2821) LIPID [id number] 00:00:00 Test Item Value Reference Range Interpretation Comments CHOLESTEROL (test code = 2210) 316 MG/DL TRIGLYCERIDES (test code = 2232) 547 MG/DL HDL CHOLESTEROL (test code = 54 MG/DL 2220) CALC LDL CHOL (test code = 2237) (NOTE) MG/DL RISK RATIO LDL/HDL (test code = (NOTE) RATIO 2238) (MANUAL DIFFERENTIAL)2019-12-16 12:27:00 Test Item Value Reference Range [...] MORPHOLOGY (BEAKER) (test code = Normal 762) HEPATITIS B SURFACE [id number] 09:48:00 Test Item Value Reference Range Interpretation Comments HEPATITIS B SURFACE ANTIGEN (2) Nonreactive Nonreactive (BEAKER) (test code = 2585) Specimen is considered negative for HBsAg.(CELLAVISION MANUAL DIFF)2019-12-16 08:57:00 Test Item Value Reference [...] (BEAKER) (test code = 1+ few 966) [id number] 05:55:00 Test Item Value Reference Range Interpretation Comments PHOSPHORUS (BEAKER) (test code = 9.2 mg/dL 2.3-4.7 HH 604) Rail Manager ID - RA MBASIC METABOLIC [id number] 05:04:00 Test Item Value Reference Range Interpretation [...] S NOT APPLICABLE FOR DIALYSIS PATIEN TS. Rail Manager ID - RA MCBC WITH PLATELET COUNT + MANUAL [id number] 04:42:00 Test Item Value Reference Range Interpretation [...] WBC 0-0 (BEAKER) (test code = 413) BASIC METABOLIC [id number] 03:00:00 Test Item Value Reference Range Interpretation [...] S NOT APPLICABLE FOR DIALYSIS PATIEN TS. Rail Manager ID - RA [id number] 02:58:00 Test Item Value Reference Range Interpretation Comments PHOSPHORUS (BEAKER) (test code = 7.4 mg/dL 2.3-4.7 H 604) Rail Manager ID - RA MCBC W/PLT COUNT & AUTO [id number] 02:38:00 Test Item Value Reference Range Interpretation [...] 0-1 PERCENT (BEAKER) (test code = 2801) SARS-COV2/RT-PCR ([facility])2019-12-14 11:10:00 Test Item Value Reference Range Interpretation Comments SARS-COV2/RT-PCR (test code Negative Not Detected, Negative, = 1737487) See external report for linked test SARS-COV-[address] [facility] (test code = 8714234) Negative results do not preclude SARS-CoV-2 infection [...] of the Act.Fact Sheet for Healthcare Pro viders:https://www.[facility]/Documents/Xpert%20Xpress%20SARS%20CoV-2/Fact%20Sh eets/302-3802%75VJGA-GQT-6%20HEALTHCARE%20PROVIDERS%20FACT%20SHEET.pdfFact Sheet for Healthcare Patients:https://www.[facility]/Documents/Xpert%20Xpress%20SARS%20CoV-2/Fact%20Sheets/3023801%20SARS-COV -2%20PATIENT%20FACT%20SHEET.pdfPerforming Laboratory:[address], [place] [address]VXFWP METABOLIC [id number] 09:53:00 Test Item Value Reference Range Interpretation [...] S NOT APPLICABLE FOR DIALYSIS PATIEN TS. Rail Manager ID - ROSIANGPROTHROMBIN TIME/[id number] 09:39:00 Test Item Value Reference Range Interpretation [...] is 2.5-3.5 for patients wiht mechanical heart valves.CBC (HEMOGRAM ONLY)2019-12-14 09:38:00 Test Item Value Reference [...] 0-0 (BEAKER) (test code = 413) URINE [id number] 11:01:00 Test Item Value Reference Range Interpretation Comments CULTURE (BEAKER) ENTEROCOCCUS A 40-49,000 c ol/mL (test code = 1095) FAECALIS Enterococ cus faecalis Ampicillin (test S code = 26) Linezolid (test code S = 40) Nitrofurantoin (test S code = 23) Tetracycline (test R code = 2) Vancomycin (test S code = 13) <10,000 col/mL skin floraHEMOGLOBIN [id number] 00:00:00 Test Item Value Reference Range Interpretation Comments HEMOGLOBIN A1c (test code = 68342) 6.9 % HEMOGLOBIN [id number] 00:00:00 Test Item Value Reference Range Interpretation Comments HEMOGLOBIN A1c (test code = 51349) 6.9 % LIPID [id number] 00:00:00 Test Item Value Reference Range Interpretation Comments CHOLESTEROL (test code = 2210) 309 MG/DL TRIGLYCERIDES (test code = 2232) 587 MG/DL HDL CHOLESTEROL (test code = 48 MG/DL 2220) CALC LDL CHOL (test code = 2237) (NOTE) MG/DL RISK RATIO LDL/HDL (test code = (NOTE) RATIO 2238) THYROID II PROFILE (TU,T4,FTI,TSH) [ADDED]2019-10-26 00:00:00 Test Item Value Reference Range Interpretation Comments T-UPTAKE (test code = 2817) 18.4 % THYROX. BIND. CAPAC. (test 1.5 code = 93264) T4 (THYROXINE) (test code = <1.2 UG/DL 2819) CORRECTED T4 (FTI) (test code (NOTE) UG/DL = 2820) TSH, THIRD GENERATION (test >100.000 UIU/ML code = 2821) HEMOGLOBIN [id number] 09:52:00 Test Item Value Reference Range Interpretation Comments HEMOGLOBIN A1C (BEAKER) (test code = 6.6 % 4.3-6.1 H 368) Rail Manager ID - [id number] 09:08:00 Test Item Value Reference Range Interpretation Comments PROSTATE SPECIFIC ANTIGEN (BEAKER) 0.5 ng/mL 0.0-4.0 (test code = 844) Rail Manager ID - [place] FLIPID [id number] 08:00:00 Test Item Value Reference Range Interpretation Comments TRIGLYCERIDES (BEAKER) (test code = 188 mg/dL 540) CHOLESTEROL (BEAKER) (test code = 263 mg/dL 631) HDL CHOLESTEROL (BEAKER) (test code 51 mg/dL = 976) LDL CHOLESTEROL CALCULATED (BEAKER) 174 mg/dL (test code = 633) Triglyceride Reference Range: Low Risk <150 Borderline 150-199 High Risk 200- 499 Very High Risk >=500Cholesterol Reference Range: Low Risk <200 Borderline 200-239 High Risk >240HDL Cholesterol Reference Range: Low Risk >=60 High Risk <40LDL Cholesterol Reference Range: Optimal <100 Near Optimal 100-129 Borderline 130-159 High 160-189 Very High >=190 Rail Manager ID - CHUCHO CTHYROID II PROFILE (T3U, T4, T7, TSH)2019-07-05 00:00:00 Test Item Value Reference Range Interpretation Comments T-UPTAKE (test code = 2817) 24.3 % THYROX. BIND. CAPAC. (test 1.3 code = 21809) T4 (THYROXINE) (test code = 3.6 UG/DL 2819) CORRECTED T4 (FTI) (test code 2.8 UG/DL = 2820) TSH, THIRD GENERATION (test >100.000 UIU/ML code = 2821) URINE [id number] 14:35:00 Test Item Value Reference Range Interpretation Comments CULTURE (BEAKER) ENTEROCOCCUS A 10-19,000 c ol/mL (test code = 1095) FAECALIS Enterococ cus faecalis Ampicillin (test S code = 26) Levofloxacin (test S code = 22) Linezolid (test code S = 40) Nitrofurantoin (test S code = 23) Tetracycline (test R code = 2) Vancomycin (test S code = 13) 10-19,000 col/mL skin [id number] 10:31:00 Test Item Value Reference Range Interpretation Comments RPR SCREEN (BEAKER) (test code = Nonreactive Nonreactive 420) U/S, ABDOMINAL, [id number] 16:14:00Reason for Exam:->Kidney transplant evaluation; comment on [...] and echogenicity with smooth contour. No focal lesions. BILIARY:Gallbladder: No gallstones or sludge. No gallbladder wall thickening, pericholecystic fluid, or distention. Negative sonographic Villa sign.Common bile duct measures 0.4 cm, within normal limits.No intrahepatic biliary ductal dilatation. PANCREAS: The pancreas is not clearly visualized due to overlying bowel gas. SPLEEN: No splenomegaly. PERITONEUM: No free fluid. KIDNEYS: Both kidneys are echogenic, which limits accurate measurement. The right kidney measures approximately 6.9 x 4.3 x 2.4 cmwith cortical thickness of 0.8 cm. The left kidney measures approximately 7.6 x 3.8 x 3.7 cm with cortical thickness of 1.7 cm. No hydronephrosis. No sonographically evident solid mass. Simple cysts inthe right kidney measure 1.5 x 1.6 x 1.7 cm and 1.1 x 0.9 x 1.4 cm. IMPRESSION:Echogenic kidneys, consistent with medical renal disease. Two simple right renal cysts. Signed: Tamika Phipps MDReport Verified Date/Time: 05/23/2019 16:14:42 Reading Location: [address] Radiology Reading Room RAD, CHEST, 2 [id number] 16:02:00 Reason for Exam:->Pre kidney transplant evaluation.FINAL REPORT TECHNIQUE: Frontal and lateral views of the chest. INDICATION: 53-year- old man for renal transplant evaluation. COMPARISON: None. FINDINGS: LINES/TUBES: None. LUNGS: The lungs are well inflated. Streaky airspace opacities in both lung bases. PLEURA: No pleural effusion or pneumothorax. HEART AND MEDIASTINUM: The cardiomediastinal silhouette is within normal limits. At herosclerotic calcifications in the thoracic aorta. SOFT TISSUES AND BONES: Degenerative changes of the visualized spine. Soft tissues are unremarkable. IMPRESSION:Bibasilar airspace opacities, likely atelectasis. Signed: Tamika Phipps MDReport Verified Date/Time: 05/23/2019 16:02:27 Reading Location: [address] Radiology Reading Room CYTOMEGALOVIRUS ANTIBODY, [id number] 15:17:00 Test Item Value Reference Range Interpretation Comments CYTOMEGALOVIRUS, IGG (BEAKER) Positive Negative, Equivocal A (test code = 3429) CMV IgG Result Interpretation: </= 0.8 Al Negative 0.9-1.0 Al Equivocal >/=1.1 Al PositiveCYTOMEGALOVIRUS ANTIBODY, [id number] 15:17:00 Test Item Value Reference Range Interpretation Comments CYTOMEGALOVIRUS IGM ANTIBODY Negative Negative, Equivocal (BEAKER) (test code = 3437) CMV IgM Result Interpretation: </= 0.8 Al Negative 0.9-1.0 Al Equivocal >/= 1.1 Al PositiveEBV ANTIBODY, [id number] 15:17:00 Test Item Value Reference Range Interpretation Comments NIHARIKA HOOPER VIRAL CAPSID Positive Negative, Equivocal A ANTIGEN IGG (BEAKER) (test code = 3415) Niharika Hooper Viral Capsid Antigen IgG Result Interpretation: </= 0.8 Al Negative 0.9-1.0 Al Equivocal >/= 1.1 Al PositiveEBV ANTIBODY, [id number] 15:17:00 Test Item Value Reference Range Interpretation Comments NIHARIKA HOOPER VIRAL CAPSID Negative Negative, Equivocal ANTIGEN IGM (BEAKER) (test code = 3418) Niharika Hooper Viral Capsid Antigen IgM Result Interpretation: </= 0.8 Al Negative 0.9-1.0 Al Equivocal >/= 1.1 Al PositiveVARICELLA ZOSTER ANTIBODY, [id number] 15:17:00 Test Item Value Reference Range Interpretation Comments VARICELLA ZOSTER IGG (AL) (BEAKER) 3.4 (test code = 3197) VARICELLA ZOSTER RESULT INTERPRETATIONS: <=0.8 Al Nonreactive: Presumed non- immune to VZV 0.9-1.0Al Equivocal >=1.1 Al Reactive: Presumed immune to VZV HEPATITIS B SURFACE [id number] 12:59:00 Test Item Value Reference Range Interpretation Comments HEPATITIS B SURFACE ANTIBODY 88656.3 mIU/mL <8.0 H (BEAKER) (test code = 647) Rail Manager ID - TIKAEPATITIS B SURFACE [id number] 12:47:00 Test Item Value Reference Range Interpretation Comments HEPATITIS B SURFACE ANTIGEN (2) Nonreactive Nonreactive (BEAKER) (test code = 2585) Rail Manager ID - TKIAEPATITIS B CORE ANTIBODY, [id number] 12:47:00 Test Item Value Reference Range Interpretation Comments HEPATITIS B CORE IGM ANTIBODY Nonreactive Nonreactive (BEAKER) (test code = 645) Rail Manager ID - NANCYGHEPATITIS C [id number] 12:47:00 Test Item Value Reference Range Interpretation Comments HEPATITIS C ANTIBODY (BEAKER) Nonreactive Nonreactive (test code = 367) Rail Manager ID - TIKAIV-1 ANTIGEN WITH HIV-1/2 [id number] 12:47:00 Test Item Value Reference Range Interpretation Comments HIV-1 ANTIGEN WITH HIV 1\T\2 Nonreactive Nonreactive ANTIBODY (2) (BEAKER) (test code = 2586) Rail Manager ID - NANCYGPTH, [id number] 12:03:00 Test Item Value Reference Range Interpretation Comments PARATHYROID HORMONE INTACT 430.9 pg/mL 8.5-72.5 H (BEAKER) (test code = 577) Rail Manager ID - LACOMPREHENSIVE METABOLIC [id number] 11:56:00 Test Item Value Reference Range Interpretation [...] S NOT APPLICABLE FOR DIALYSIS PATIEN TS. Rail Manager ID - LAURIC [id number] 11:55:00 Test Item Value Reference Range Interpretation Comments URIC ACID (BEAKER) (test code = 5.5 mg/dL 2.6-7.2 773) Rail Manager ID - [id number] 11:55:00 Test Item Value Reference Range Interpretation Comments PHOSPHORUS (BEAKER) (test code = 5.5 mg/dL 2.3-4.7 H 604) Rail Manager ID - LAGAMMA GLUTAMYL TRANSFERASE (GGT)2019-05-23 11:55:00 Test Item Value Reference Range Interpretation Comments GAMMA GLUTAMYL TRANSFERASE (BEAKER) 20 U/L 9-64 (test code = 364) Rail Manager ID - LALACTATE DEHYDROGENASE (LDH)2019-05-23 11:55:00 Test Item Value Reference Range Interpretation Comments LACTATE DEHYDROGENASE (BEAKER) (test 249 U/L 125-220 H code = 635) Rail Manager ID - LAURINALYSIS W/ [id number] 11:43:00 Test Item Value Reference Range Interpretation [...] < /HPF SOURCE(BEAKER) (test code = 2795) Rail Manager ID - [auto]Rail Manager ID - techPT/[id number] 11:32:00 Test Item Value Reference Range Interpretation [...] is 2.5-3.5 for patients wiht mechanical heart valves.PROTHROMBIN TIME/[id number] 11:31:00 Test Item Value Reference Range Interpretation [...] is 2.5-3.5 for patients wiht mechanical heart valves.CBC W/PLT COUNT & AUTO [id number] 11:27:00 Test Item Value Reference Range Interpretation [...] 0-1 PERCENT (BEAKER) (test code = 2801) [id number] 00:00:00 Test Item Value Reference Range Interpretation Comments TSH, THIRD GENERATION (test >100.000 UIU/ML code = 2821) [id number] 00:00:00 Test Item Value Reference Range Interpretation Comments TSH, THIRD GENERATION (test >100.000 UIU/ML code = 2821) LIPID [id number] 00:00:00 Test Item Value Reference Range Interpretation Comments CHOLESTEROL (test code = 2210) 201 MG/DL TRIGLYCERIDES (test code = 2232) 227 MG/DL HDL CHOLESTEROL (test code = 2220) 52 MG/DL CALC LDL CHOL (test code = 2237) 104 MG/DL RISK RATIO LDL/HDL (test code = 1.99 RATIO 2238) [id number] 00:00:00 Test Item Value Reference Range Interpretation Comments TSH, THIRD GENERATION (test >100.000 UIU/ML code = 2821) [id number] 00:00:00 Test Item Value Reference Range Interpretation Comments TSH, THIRD GENERATION (test >100.000 UIU/ML code = 2821) COMPREHENSIVE METABOLIC [id number] 00:00:00 Test Item Value Reference Range Interpretation Comments GLUCOSE (test code = 2217) 103 MG/DL BUN (test code = 2208) 35 MG/DL CREATININE (test code = 2214) 6.37 MG/DL eGFR AMER. (test code 11 ML/MIN/1.73 = 98287) eGFR NON- AMER. (test 9 ML/MIN/1.73 code = 67889) CALC BUN/CREAT (test code = 5 RATIO 2235) SODIUM (test code = 2231) 141 MEQ/L POTASSIUM (test code = 2228) 3.8 MEQ/L CHLORIDE (test code = 2215) 96 MEQ/L CARBON DIOXIDE (test code = 27 MEQ/L 2206) CALCIUM (test code = 2209) 11.0 MG/DL PROTEIN, TOTAL (test code = 8.8 G/DL 2228) ALBUMIN (test code = 2201) 5.6 G/DL CALC GLOBULIN (test code = 3.2 G/DL 2240) CALC A/G RATIO (test code = 1.8 RATIO 2234) BILIRUBIN, TOTAL (test code = 0.2 MG/DL 2206) ALKALINE PHOSPHATASE (test 58 U/L code = 2204) AST (test code = 2218) 10 U/L ALT (test code = 2219) 10 U/L LIPID [id number] 00:00:00 Test Item Value Reference Range Interpretation Comments CHOLESTEROL (test code = 2210) 240 MG/DL TRIGLYCERIDES (test code = 2232) 395 MG/DL HDL CHOLESTEROL (test code = 2220) 55 MG/DL CALC LDL CHOL (test code = 2237) 106 MG/DL RISK RATIO LDL/HDL (test code = 1.93 RATIO 2238) CBC W/AUTO [id number] 00:00:00 Test Item Value Reference Range Interpretation Comments WBC (test code = 1001) 9.0 K/UL RBC (test code = 1002) 4.08 M/UL HEMOGLOBIN (test code = 1003) 13.1 G/DL HEMATOCRIT (test code = 1004) 37.2 % MCV (test code = 1005) 91.2 fL MCH (test code = 1006) 32.1 PG MCHC (test code = 1007) 35.2 G/DL RDW (test code = 1038) 13.8 % NEUTROPHILS (test code = 1008) 61.4 % LYMPHOCYTES (test code = 1010) 27.6 % MONOCYTES (test code = 1011) 7.7 % EOSINOPHILS (test code = 1012) 2.2 % BASOPHILS (test code = 1013) 1.1 % PLATELET COUNT (test code = 1015) 327 K/UL CBC W/AUTO [id number] 00:00:00 Test Item Value Reference Range Interpretation Comments WBC (test code = 1001) 9.0 K/UL RBC (test code = 1002) 4.08 M/UL HEMOGLOBIN (test code = 1003) 13.1 G/DL HEMATOCRIT (test code = 1004) 37.2 % MCV (test code = 1005) 91.2 fL MCH (test code = 1006) 32.1 PG MCHC (test code = 1007) 35.2 G/DL RDW (test code = 1038) 13.8 % NEUTROPHILS (test code = 1008) 61.4 % LYMPHOCYTES (test code = 1010) 27.6 % MONOCYTES (test code = 1011) 7.7 % EOSINOPHILS (test code = 1012) 2.2 % BASOPHILS (test code = 1013) 1.1 % PLATELET COUNT (test code = 1015) 327 K/UL HEMOGLOBIN [id number] 00:00:00 Test Item Value Reference Range Interpretation Comments HEMOGLOBIN A1c (test code = 91145) 6.2 % HEMOGLOBIN [id number] 00:00:00 Test Item Value Reference Range Interpretation Comments HEMOGLOBIN A1c (test code = 95734) 6.2 % [id number] 00:00:00 Test Item Value Reference Range Interpretation Comments TSH, THIRD GENERATION (test >100.000 UIU/ML code = 2821) [id number] 00:00:00 Test Item Value Reference Range Interpretation Comments TSH, THIRD GENERATION (test >100.000 UIU/ML code = 2821)
[2021-12-22 09:52] LABS: Absolute Lymphocytes (CBC) 1.6 K/uL (0.7-4.9); Hematocrit 32.2 % (39.6-49.0); Lymphocytes % 17.8 % (15.3-44.8); MCV 93.2 fL (80-100); MPV 7.8 fL (7.6-11.3); RBC Red Blood Cell Count 3.45 M/uL (4.33-5.43)
[2021-12-22 10:34] LABS: Potassium 3.7 mmol/L (3.5-5.1); Troponin High Sensitivity 10.9 pg/mL (<58.9)
--- NOTE | 2021-12-22 10:43 | RAD REPORT ---
EXAM DESCRIPTION: RAD - Chest Single View - 12/22/2021 10:02 am CLINICAL HISTORY: CHEST PAIN COMPARISON: Chest Single View dated 11/23/2020; Chest Single View dated 06/25/2020; Chest Single View dated 06/24/2020; Chest Single View dated 06/19/2020 FINDINGS: Lines: None. Lungs: Linear basilar opacities likely representing atelectasis or scarring. Pleural: No significant pleural effusions or pneumothorax. Cardiac: The heart size is within normal limits. Bones: No acute fractures. Other: IMPRESSION: Linear basilar opacities likely reflecting atelectasis and/or scarring.
--- NOTE | 2021-12-22 11:16 | ER ---
Nurse's Notes [facility] Name: Alejandro Dunbar Age: 56 yrs Sex: Male : 1965 Arrival Date: 12/22/2021 Time: 09:16 Bed 17 Private MD: Diagnosis: Chest pain, unspecified Presentation: 12/22 09:22 Chief complaint: Patient states: chest pain for 2 weeks, worse when breathing. Was at [facility]8 dialysis this morning and the doctor wanted him checked out. Coronavirus screen: Vaccine status: Patient reports receiving the 2nd dose of the covid vaccine. Ebola Screen: Patient negative for fever greater than or equal to 101.5 degrees Fahrenheit, and additional compatible Ebola Virus Disease symptoms Patient denies exposure to infectious person. Patient denies travel to an Ebola-affected area in the 21 days before illness onset. No symptoms or risks identified at this time. Initial Sepsis Screen: Does the patient meet any 2 criteria? No. Patient's initial sepsis screen is negative. Does the patient have a suspected source of infection? No. Patient's initial sepsis screen is negative. Risk Assessment: Do you want to hurt yourself or someone else? Patient reports no desire to harm self or others. Onset of symptoms is unknown. 09: Method Of Arrival: EMS mb8 09:22 Acuity: KERRI 3 mb8 Triage Assessment: 09:26 General: Appears in no apparent distress. comfortable, Behavior is calm, cooperative, mb8 Reports. Pain: Complains of pain in chest Pain does not radiate. Pain currently is 5 out of 10 on a pain scale. Cardiovascular: Reports chest pain, shortness of breath, Capillary refill Patient's skin is warm and dry. Historical: - PMHx: 09:25 Diabetes - NIDDM; Dialysis; High Cholesterol; Hypertension; Hypothyroidism; mb8 - Social history:: Smoking status: Patient reports the use of cigarette tobacco products. Screenin:27 Abuse screen: Denies threats or abuse. Denies injuries from another. Nutritional mb8 screening: No deficits noted. Tuberculosis screening: No symptoms or risk factors identified. Fall Risk None identified. Assessment: 09:27 Cardiovascular: Rhythm is regular Chest pain. mb8 10:17 Reassessment: No changes from previously documented assessment. Patient and/or family mb8 updated on plan of care and expected duration. Pain level reassessed. Patient is alert, oriented x 3, equal unlabored respirations, skin warm/dry/pink. 11:00 Reassessment: No changes from previously documented assessment. Patient and/or family mb8 updated on plan of care and expected duration. Pain level reassessed. Patient is alert, oriented x 3, equal unlabored respirations, skin warm/dry/pink. Vital Signs: 09:22 BP 148 / 73; Pulse 61; Resp 16; Temp 98.4; Pulse Ox 97% ; Pain 5/10; mb8 11:00 BP 146 / 69 LA (auto/reg); Pulse 57 MON; Resp 16 S; Temp 98.0(O); Pulse Ox 98% on R/A; mb8 Pain 5/10; Vitals: 11:00 Cardiac Rhythm Assessment Regular Sinus rhythm. mb8 ED Course: 09:16 Patient arrived in ED. ll1 09:18 Armen Hooper is PHCP. jl9 09:18 Tomas Cast MD is Attending Physician. jl9 09:22 Jones Wing RN is Primary Nurse. mb8 09:25 Triage completed. mb8 09:26 Arm band placed on. EKG completed in triage. Results shown to MD. mb8 09:27 No provider procedures requiring assistance completed. Inserted saline lock: 18 gauge mb8 in right antecubital area, using aseptic technique. Blood collected. 09:28 Patient has correct armband on for positive identification. mb8 10:03 XRAY Chest (1 view) In Process Unspecified. EDMS 10:38 Notified Nurse Practitioner and/or Physician Eligibility And Occupancy Interviewer of a critical lab result(s), 1 creatinine 6.56. 11:00 Assisted to bathroom. mb8 11:40 IV discontinued, intact, bleeding controlled, No redness/swelling at site. Pressure mb8 dressing applied. Administered Medications: No medications were administered Medication: 11:40 VIS not applicable for this client. mb8 Outcome: 11:16 Discharge ordered by . jl9 11:40 Discharged to home ambulatory. mb8 11:40 Condition: stable 11:40 Discharge instructions given to patient, Instructed on discharge instructions, follow up and referral plans. Demonstrated understanding of instructions, follow-up care. 11:40 Patient left the ED. mb8 Signatures: Dispatcher [employer] EDMS Volodymyr Richardson RN RN ll1 Armen Hooper jl9 Jones Wing, RN RN mb8
--- NOTE | 2021-12-22 11:16 | EDPHYS ---
Physician Documentation [facility] Name: Alejandro Dunbar Age: 56 yrs Sex: Male : 1965 Arrival Date: 12/22/2021 Time: 09:16 Bed 17 Private MD: ED Physician Tomas Cast HPI: 12/22 11:13 This 56 yrs old Male presents to ER via EMS with complaints of intermittent jl9 chest wall pain x2 weeks, pain upon coughing only. . 11:13 Onset: The symptoms/episode began/occurred 2 week(s) ago. Severity of symptoms: in the jl9 emergency department the symptoms have resolved. Historical: - PMHx: 09:25 Diabetes - NIDDM; Dialysis; High Cholesterol; Hypertension; Hypothyroidism; mb8 - Social history:: Smoking status: Patient reports the use of cigarette tobacco products. ROS: 11:14 Constitutional: Negative for fever, chills, and weight loss, Eyes: Negative for injury, jl9 pain, redness, and discharge, ENT: Negative for injury, pain, and discharge, Neck: Negative for injury, pain, and swelling. 11:14 Respiratory: Negative for shortness of breath, cough, wheezing, and pleuritic chest pain, Abdomen/GI: Negative for abdominal pain, nausea, vomiting, diarrhea, and constipation, Back: Negative for injury and pain, : Negative for injury, bleeding, discharge, and swelling, MS/Extremity: Negative for injury and deformity, Skin: Negative for injury, rash, and discoloration, Neuro: Negative for headache, weakness, numbness, tingling, and seizure, Psych: Negative for depression, anxiety, suicide ideation, homicidal ideation, and hallucinations, Allergy/Immunology: Negative for hives, rash, and allergies, Endocrine: Negative for neck swelling, polydipsia, polyuria, polyphagia, and marked weight changes, Hematologic/Lymphatic: Negative for swollen nodes, abnormal bleeding, and unusual bruising. 11:14 Cardiovascular: Positive for chest pain, with movement. Exam: 11:14 Constitutional: This is a well developed, well nourished patient who is awake, alert, jl9 and in no acute distress. Head/Face: Normocephalic, atraumatic. Eyes: Pupils equal round and reactive to light, extra-ocular motions intact. Lids and lashes normal. Conjunctiva and sclera are non-icteric and not injected. Cornea within normal limits. Periorbital areas with no swelling, redness, or edema. ENT: Mucous membranes moist. Neck: Trachea midline, no thyromegaly or masses palpated, and no cervical lymphadenopathy. Supple, full range of motion without nuchal rigidity, or vertebral point tenderness. No Meningismus. Chest/axilla: Normal chest wall appearance and motion. Nontender with no deformity. No lesions are appreciated. Cardiovascular: Regular rate and rhythm with a normal S1 and S2. No gallops, murmurs, or rubs. Normal PMI, no JVD. No pulse deficits. Respiratory: Lungs have equal breath sounds bilaterally, clear to auscultation and percussion. No rales, rhonchi or wheezes noted. No increased work of breathing, no retractions or nasal flaring. Abdomen/GI: Soft, non-tender, with normal bowel sounds. No distension or tympany. No guarding or rebound. No evidence of tenderness throughout. Back: No spinal tenderness. No costovertebral tenderness. Full range of motion. Skin: Warm, dry with normal turgor. Normal color with no rashes, no lesions, and no evidence of cellulitis. MS/ Extremity: Pulses equal, no cyanosis. Neurovascular intact. Full, normal range of motion. Neuro: Awake and alert, GCS 15, oriented to person, place, time, and situation. Cranial nerves II-XII grossly intact. Motor strength 5/5 in all extremities. Sensory grossly intact. Cerebellar exam normal. Normal gait. Psych: Awake, alert, with orientation to person, place and time. Behavior, mood, and affect are within normal limits. Vital Signs: 09:22 BP 148 / 73; Pulse 61; Resp 16; Temp 98.4; Pulse Ox 97% ; Pain 5/10; mb8 11:00 BP 146 / 69 LA (auto/reg); Pulse 57 MON; Resp 16 S; Temp 98.0(O); Pulse Ox 98% on R/A; mb8 Pain 5/10; MDM: 09:18 Patient medically screened. jl9 09:32 Test interpretation: by ED physician or midlevel provider: ECG, NSR. 9 11:15 Differential Diagnosis Chest pain, Angina.. Data reviewed: vital signs, nurses notes, jl9 lab test result(s), EKG, radiologic studies. Test interpretation: by ED physician or midlevel provider: ECG. Counseling: I had a detailed discussion with the patient and/or guardian regarding: the historical points, exam findings, and any diagnostic results supporting the discharge/admit diagnosis, lab results, radiology results, the need for outpatient follow up, smoking cessation. 12/22 09:24 Order name: Basic Metabolic Panel; Complete Time: 10:43 12/22 09:24 Order name: CBC with Diff; Complete Time: 10:13 12/22 09:24 Order name: Troponin HS; Complete Time: 10:43 12/22 09:24 Order name: XRAY Chest (1 view); Complete Time: 10:51 12/22 09:24 Order name: EKG; Complete Time: 09:25 12/22 09:24 Order name: SARS-COV-2 RT PCR (Document "Date of Onset" if Symptomatic); Complete Time: 10:43 12/22 09:24 Order name: Cardiac monitoring; Complete Time: 09:28 12/22 09:24 Order name: EKG - Nurse/Tech; Complete Time: 09:28 12/22 09:24 Order name: IV Saline Lock; Complete Time: 09:28 12/22 09:24 Order name: Labs collected and sent; Complete Time: :33 12/22 09:24 Order name: O2 Per Protocol; Complete Time: 09:33 12/22 09:24 Order name: O2 Sat Monitoring; Complete Time: :33 Administered Medications: No medications were administered Disposition: 16:20 Co-signature as Attending Physician, Tomas Cast MD. rn Disposition Summary: 12/22/21 11:16 Discharge Ordered Location: Home jl9 Condition: Stable jl9 Diagnosis - Chest pain, unspecified jl9 Followup: jl9 - With: Private Physician - When: 1 - 2 days - Reason: Recheck today's complaints, Continuance of care, Re-evaluation by your physician Discharge Instructions: - Discharge Summary Sheet jl9 - Chest Wall Pain jl9 - Nonspecific Chest Pain, Adult, [id number] jl9 Forms: - Medication Reconciliation Form jl9 - Thank You Letter jl9 - Antibiotic Education jl9 - Prescription Opioid Use jl9 Signatures: Dispatcher [employer] Tomas Quezada MD MD rn Linares, John jl9 Jones Wing RN RN mb8 Corrections: (The following items were deleted from the chart) 11:18 11:13 This 56 yrs old Male presents to ER via EMS with complaints of chest jl9 wall pain x2 weeks. . jl9
[2021-12-22 11:56] VITALS: BP 146/69; TEMP 98; O2SAT 98
--- NOTE | 2021-12-23 13:52 | EKG ---
Test Date: 2021-12-22 Test Time: 09:16:58 Child Psychometrist: MEASUREMENT RESULTS: Intervals: Rate: 61 [place]: 180 QRSD: 96 QT: 432 QTc: 434 [place]: P: 33 [place]: 180 QRS: 42 T: 100 INTERPRETIVE STATEMENTS: Normal sinus rhythm Normal ECG Compared to ECG 11/23/2020 17:07:35 ST (T wave) deviation no longer present Electronically Signed On 12-23-21 13:50:07 CDT by Joe Al
== END 2021-12-22 11:40 | disposition home or self-care (01) ==
LOC: ER 09:13
DX: R07.89 Other chest pain (principal); I10 Essential (primary) hypertension; E11.9 Type 2 diabetes mellitus without complications; Z99.2 Dependence on renal dialysis; Z20.822 Contact with and (suspected) exposure to COVID-19; Z72.0 Tobacco use
CPT/HCPCS: 93005; 85025; 80048; 36415; 84484; 71045; 99284; U0003

== ENCOUNTER 2022-03-17 10:16 | Inpatient (IN) | payer OTHER ==
--- OUTSIDE RECORDS SUMMARY | 2022-03-17 10:31 | XMS REPORT | Continuity of Care Document ---
:1965 Author Organization [facility] t Address [address] [place] [address] Care Team Providers Name Role Phone Asked, No Pcp Primary Care Physician Unavailable IRMA NICHOLSON Attending Clinician Unavailable SYLVAIN OLIVARES Attending Clinician Unavailable JOSELUIS FERNANDEZ Attending Clinician Unavailable Eufemia RNMami Attending Clinician Unavailable Joseluis Fernandez MD Attending Clinician Gen Ambrocio Attending Clinician Unavailable Radiology Attending Clinician Unavailable RADIOLOGY Attending Clinician Unavailable Shantel Ko RN Attending Clinician Unavailable Doctor Unassigned, [place] Attending Clinician Unavailable SAM RAMIRES Attending Clinician Unavailable Sam Ramires MD Attending Clinician DEAN GARCIA Attending Clinician Unavailable Radha HUDDLESTON, Dean Attending Clinician MARCUS CABALLERO Attending Clinician Unavailable HUNTER GIPSON Attending Clinician Unavailable IRMA NICHOLSON Admitting Clinician Unavailable SYLVAIN OLIVARES Admitting Clinician Unavailable Payers Payer Name Policy Type Policy Number Effective Date Expiration Date S tammie MEDICARE A B [id number] 2018 00:00:00 [facility] REVIEW [id number] 2019 00:00:00 MEDICAID OF [place] [id number] 2019 00:00:00 [facility] [id number] DUAL COMPLETE HMO 00:00:00 MEDICAID [place] [id number] 2019 00:00:00 MEDICARE PART A \T\ [id number] 2018 B 00:00:00 Problems Condition Condition Condition Status Onset Resolution Last Treating Co mments Source Name Details Category Date Date Treatment Clinician Date Nonobstruc Nonobstruc Disease Active [facility] 4[facility]20 [facility] atherosc[place]le [place] Med[facility] l coronary coronary Branch artery artery Volume Volume Disease [facility] Groin Groin Disease Active [facility] pain, pain, [facility] chronic, chronic, 00:00: Medica l right right 00 Center Pre-transp Pre-transp Disease Active [facility] 8[facility]13 [facility] evaluation evaluation 00:00: Me dical for ESRD for ESRD 00 Center (end stage (end stage renal renal disease) disease) ESRD (end ESRD (end Disease Active [facility] stage stage 3-12 [facility] renal renal 00:00: Medical disease) disease) 00 Center on on dialysis dialysis Hypothyroi Hypothyroi Disease Active [facility] dism, dism, 3-12 [facility] unspecifie unspecifie 00:00: Me dical d type d type 00 Center 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[facility] hyroidism hyroidism 00:00: Medi benjy of renal of renal 00 Center origin origin Hyperlipid Hyperlipid Disease Active [facility] emia, emia, 3-12 [facility] unspecifie unspecifie 00:00: Me dical d d 00 Center hyperlipid hyperlipid emia type emia type Obesity Obesity Disease Active [facility] (BMI (BMI 3-12 [facility] 30-39.9) 30-39.9) 00:00: Medica l 00 Center Pre-transp Pre-transp Disease Active [facility] 1-21 [facility] evaluation evaluation 00:00: Me dical for for 00 Center chronic chronic kidney kidney disease disease Essential Essential Disease Active [facility] hypertensi hypertensi 1-21 [facility] on on 00:00: Medical 00 Center Type 2 Type [address] [facility] diabetes diabetes 1-21 [facility] mellitus mellitus 00:00: Medica l with with 00 Center chronic chronic kidney kidney disease on disease on chronic chronic dialysis, dialysis, without without long-term long-term current current use of use of insulin insulin Dizziness Dizziness Disease Active Uni vers 9-10 it[facility] of 00:00: [place] [facility] Pre-syncop Pre-syncop Disease Active U nivers e e 9- ity of 00:00: [place] [facility] Elevated Elevated Disease Active 2017-05 Unive rs troponin I troponin I 05-04 it y of level level 00:00: [place] [facility] Elevated Elevated Disease Active 2017-05 Unive rs brain brain 05-04 ity of natriureti natriureti [place] c peptide c peptide 00 Medi benjy (BNP) (BNP) Branch level level Essential Essential Disease Active 2017-05 Uni vers hypertensi hypertensi 05-04 it y of on on 00:00: [place] [facility] [place] Dyslipidem Dyslipidem Disease Active 2017-05 U nivers ia ia 05-04 ity of 00:00: [place] [facility] Hypocalcem Hypocalcem Disease Active 2017-05 U nivers ia ia 05-03 ity of 00:00: [address] Allergies, Adverse Reactions, Alerts Allergy Allergy Status Severity Reaction(s) Onset Inactive Treating Comm ents Source Name Type Date Date Clinician n Propensi Active ty to 11-06 adverse 00:00: reaction 00 to drug NO KNOWN Allergy Active [facility] Family History Family Member Diagnosis Comments Start Date Stop Date Source Natural brother No Known Problem [facility] Natural father Alcohol abuse [facility] Natural mother No Known Problem [facility] Natural sister Diabetes [facility] Natural sister Kidney disease [facility] Natural sister No Known Problem [facility] Social History Social Habit Start Date Stop Date Quantity Comments Source History SDOH [facility] Alcohol Std Drinks Medica l Center History SDOH [facility] Alcohol Binge Medical [facility] History SDOH [facility] Alcohol Comment Medical C enter History of tobacco Smoker [facility] Exposure to 2021-11-22 2021-12-02 Not sure [facility] SARS-CoV-2 (event) 00:00:00 14:04:00 [facility] Alcohol intake 2019-12-17 2019-12-17 Current [facility] St Sheng es 00:00:00 00:00:00 non-drinker of Medical Ce nter alcohol (finding) History SDOH 2019-05-23 2019-05-[address] [facility] Alcohol Frequency 00:00:00 00:00:00 Medical Center Cigarettes smoked 2019-04-20 2019-04-[address] [facility] current (pack per 00:00:00 00:00:00 Medical Center day) - Reported Cigarette 2019-04-20 2019-04-[address] [facility] pack-years 00:00:00 00:00:00 Medical Center Tobacco use and 2019-04-20 2019-04-[address] [facility] exposure 00:00:00 00:00:00 Medical Center Sex Assigned At [address] [facility] 00:00:00 00:[facility]:00 [facility] Center Smoking Status Start Date Stop Date Source Ex-smoker 2018-03-03 00:00:00 2018-03-03 00:00:00 [facility] [place] Medications Ordered Filled Start Stop Current Ordering Indication Dosage Frequency Signature Comments Components Source Medication Medication Date Date Medication? Clinician (SIG) Name Name levothyroxi Yes [id number] 224ug Take 2 Univers ne 112 mcg 8-23 tablets by ity of tablet 00:00: mouth every Medical morning. Branch INSTILL 1 No DROP INTO 8-10 BOTH EYES 00:00: EVERY 00 MORNING &lt 2021-0 No 800 8-10 00:00: 00 &lt 2021-0 No 50 8-10 00:00: 00 Dose 2021-0 No 75 Unknown 8-10 00:00: 00 &lt 2021-0 No 500 8-10 00:00: 00 &lt 2021-0 No 10 8-10 00:00: 00 Dose 2-0 No 25 Unknown 8-10 00:00: 00 TAKE 1 2021-0 No 80 TABLET AT 8-10 BEDTIME. 00:00: 00 INSTILL 1 2021-0 No DROP INTO 8-10 BOTH EYES 00:00: EVERY 00 MORNING &lt 2021-0 No 800 8-10 00:00: 00 &lt 2022-0 No 50 8-10 00:00: 00 Dose 2021-0 No 75 Unknown 8-10 00:00: 00 &lt 2022-0 No 500 8-10 00:00: 00 &lt 2022-0 No 10 8-10 00:00: 00 Dose 2022-0 No 25 Unknown 8-10 00:00: 00 TAKE 1 2022-0 No 80 TABLET AT 8-10 BEDTIME. 00:00: 00 INSTILL 1 2022-0 No DROP INTO 8-10 BOTH EYES 00:00: EVERY 00 MORNING &lt 2022-0 No 800 8-10 00:00: 00 &lt 2022-0 No 50 8-10 00:00: 00 Dose 2022-0 No 75 Unknown 8-10 00:00: 00 &lt 2022-0 No 500 8-10 00:00: 00 &lt 2022-0 No 10 8-10 00:00: 00 Dose 2022-0 No 25 Unknown 8-10 00:00: 00 TAKE 1 2022-0 No 80 TABLET AT 8-10 BEDTIME. 00:00: 00 INSTILL 1 2022-0 No DROP INTO 8-10 BOTH EYES 00:00: EVERY 00 MORNING &lt 2022-0 No 800 8-10 00:00: 00 &lt 2022-0 No 50 8-10 00:00: 00 Dose 2022-0 No 75 Unknown 8-10 00:00: 00 &lt 2022-0 No 500 8-10 00:00: 00 &lt 2022-0 No 10 8-10 00:00: 00 Dose 2022-0 No 25 Unknown 8-10 00:00: 00 TAKE 1 2022-0 No 80 TABLET AT 8-10 BEDTIME. 00:00: 00 &lt 2022-0 No 8-08 00:00: 00 &lt 2022-0 No 80 8- 00:00: 00 Dose 2022-0 No Unknown 8 00:00: 00 &lt 2022-0 No 8- 00:00: 00 &lt 2022-0 No 80 8 00:00: 00 Dose 2022-0 No Unknown 8 00:00: 00 &lt 2022-0 No 8- 00:00: 00 &lt 2022-0 No 80 8 00:00: 00 Dose 2022-0 No Unknown 8 00:00: 00 &lt 2022-0 No 8- 00:00: 00 &lt 2022-0 No 80 8-08 00:00: 00 Dose 2022-0 No Unknown 8-08 00:00: 00 TAKE 1 2022-0 No 2 TABLET 8-05 EVERY 6 00:00: HOURS BY 00 ORAL ROUTE NEEDED FOR 7 DAYS. &lt 2022-0 No 8-05 00:00: 00 INSTILL 1 2-0 No DROP IN 8-05 BOTH EYES 00:00: EVERY DAY 00 TAKE 1 2022-0 No 2 TABLET 8-05 EVERY 6 00:00: HOURS BY 00 ORAL ROUTE NEEDED FOR 7 DAYS. &lt 2022-0 No 8-05 00:00: 00 INSTILL 1 2-0 No DROP IN 8-05 BOTH EYES 00:00: EVERY DAY 00 TAKE 1 2022-0 No 2 TABLET 8-05 EVERY 6 00:00: HOURS BY 00 ORAL ROUTE NEEDED FOR 7 DAYS. &lt 2022-0 No 8-05 00:00: 00 INSTILL 1 2-0 No DROP IN 8-05 BOTH EYES 00:00: EVERY DAY 00 TAKE 1 2-0 No 2 TABLET 8-05 EVERY 6 00:00: HOURS BY 00 ORAL ROUTE NEEDED FOR 7 DAYS. &lt 2022-0 No 8-05 00:00: 00 INSTILL 1 2-0 No DROP IN 8-05 BOTH EYES 00:00: EVERY DAY 00 TAKE 1 2-0 No 2 TABLET 8-05 EVERY 6 00:00: HOURS BY 00 ORAL ROUTE NEEDED FOR 7 DAYS. &lt 2022-0 No 8-05 00:00: 00 INSTILL 1 2-0 No DROP IN 8-05 BOTH EYES 00:00: EVERY DAY 00 &lt 2022-0 No 8-03 00:00: 00 &lt 2022-0 No 8-03 00:00: 00 &lt 2022-0 No 8-03 00:00: 00 &lt 2022-0 No 8-03 00:00: 00 &lt 2022-0 No 8-03 00:00: 00 Dose 2022-0 No Unknown 7-26 00:00: 00 &lt 2022-0 No 25 7- 00:00: 00 TAKE 1 2022-0 No 2 TABLET 7-26 EVERY 6 00:00: HOURS BY 00 ORAL ROUTE NEEDED FOR 7 DAYS. Dose 2022-0 No Unknown 7- 00:00: 00 &lt 2022-0 No 25 11-25 00:00: 00 TAKE 1 2-0 No 2 TABLET 11-25 EVERY 6 00:00: HOURS BY 00 ORAL ROUTE NEEDED FOR 7 DAYS. Dose 2022-0 No Unknown 11-25 00:00: 00 &lt 2022-0 No 25 11-25 00:00: 00 TAKE 1 2022-0 No 2 TABLET - EVERY 6 00:00: HOURS BY 00 ORAL ROUTE NEEDED FOR 7 DAYS. Dose 2022-0 No Unknown 11-25 00:00: 00 &lt 2022-0 No 25 11-25 00:00: 00 TAKE 1 2022-0 No 2 TABLET - EVERY 6 00:00: HOURS BY 00 ORAL ROUTE NEEDED FOR 7 DAYS. Dose 2-0 No Unknown 11-25 00:00: 00 &lt 2022-0 No 25 11-25 00:00: 00 TAKE 1 2-0 No 2 TABLET 11-25 EVERY 6 00:00: HOURS BY 00 ORAL ROUTE NEEDED FOR 7 DAYS. INSTILL 1 2021-0 No DROP INTO 7-25 BOTH EYES 00:00: EVERY 00 MORNING &lt 2022-0 No 800 7- 00:00: 00 Dose 2022-0 No 75 Unknown 7 00:00: 00 TAKE 1 2-0 No 300 CAPSULE BY 7-25 MOUTH EVERY 00:00: DAY 00 &lt 2022-0 No 10 7 00:00: 00 INSTILL 1 2022-0 No DROP INTO 7-25 BOTH EYES 00:00: EVERY 00 MORNING &lt 2022-0 No 800 7- 00:00: 00 Dose 2022-0 No 75 Unknown 7- 00:00: 00 TAKE 1 2022-0 No 300 CAPSULE BY 7-25 MOUTH EVERY 00:00: DAY 00 &lt 2022-0 No 10 7- 00:00: 00 INSTILL 1 2-0 No DROP INTO 7-25 BOTH EYES 00:00: EVERY 00 MORNING &lt 2022-0 No 800 7-25 00:00: 00 Dose 2022-0 No 75 Unknown 7-25 00:00: 00 TAKE 1 2022-0 No 300 CAPSULE BY 7-25 MOUTH EVERY 00:00: DAY 00 &lt 2022-0 No 10 7- 00:00: 00 INSTILL 1 2021-0 No DROP INTO 7-25 BOTH EYES 00:00: EVERY 00 MORNING &lt 2022-0 No 800 11-24 00:00: 00 Dose 2022-0 No 75 Unknown 11-24 00:00: 00 TAKE 1 2021-0 No 300 CAPSULE BY 7-25 MOUTH EVERY 00:00: DAY 00 &lt 2022-0 No 10 11-24 00:00: 00 INSTILL 1 2021-0 No DROP INTO 7-25 BOTH EYES 00:00: EVERY 00 MORNING &lt 2022-0 No 800 11-24 00:00: 00 Dose 2022-0 No 75 Unknown 11-24 00:00: 00 TAKE 1 2021-0 No 300 CAPSULE BY 725 MOUTH EVERY 00:00: DAY 00 &lt 2021-0 No 10 11-24 00:00: 00 &lt 2022-0 No 10 11-21 00:00: 00 INSTILL 1 2021-0 No DROP IN 7-22 BOTH EYES 00:00: EVERY DAY 00 &lt 2021-0 No 500 11-21 00:00: 00 Dose 2022-0 No 80 Unknown 11-21 00:00: 00 &lt 2022-0 No 7- 00:00: 00 &lt 2-0 No 10 11-21 00:00: 00 INSTILL 1 2021-0 No DROP IN 7-22 BOTH EYES 00:00: EVERY DAY 00 &lt 2-0 No 10 11-21 00:00: 00 INSTILL 1 2021-0 No DROP IN 7-22 BOTH EYES 00:00: EVERY DAY 00 &lt 2022-0 No 500 11-21 00:00: 00 Dose 2022-0 No 80 Unknown 11-21 00:00: 00 &lt 2022-0 No 7- 00:00: 00 &lt 2022-0 No 500 11-21 00:00: 00 Dose 2022-0 No 80 Unknown 11-21 00:00: 00 &lt 2022-0 No 7- 00:00: 00 &lt 2022-0 No 10 11-21 00:00: 00 INSTILL 1 2021-0 No DROP IN 7-22 BOTH EYES 00:00: EVERY DAY 00 &lt 2022-0 No 500 7- 00:00: 00 Dose 2022-0 No 80 Unknown 11-21 00:00: 00 &lt 2022-0 No 7- 00:00: 00 &lt 2022-0 No 10 7 00:00: 00 INSTILL 1 2021-0 No DROP IN 7-22 BOTH EYES 00:00: EVERY DAY 00 &lt 2022-0 No 500 11-21 00:00: 00 Dose 2022-0 No 80 Unknown 11-21 00:00: 00 &lt 2022-0 No 7- 00:00: 00 &lt 2022-0 No 10 7- 00:00: 00 &lt 2022-0 No 10 7- 00:00: 00 &lt 2022-0 No 10 7- 00:00: 00 &lt 2022-0 No 10 7- 00:00: 00 &lt 2022-0 No 10 7- 00:00: 00 INSTILL 1 2-0 No DROP IN 7-20 BOTH EYES 00:00: EVERY DAY 00 INSTILL 1 2-0 No DROP IN 7-20 BOTH EYES 00:00: EVERY DAY 00 INSTILL 1 2-0 No DROP IN 7-20 BOTH EYES 00:00: EVERY DAY 00 INSTILL 1 2-0 No DROP IN 7-20 BOTH EYES 00:00: EVERY DAY 00 INSTILL 1 2-0 No DROP IN 7-20 BOTH EYES 00:00: EVERY DAY 00 &lt 2022-0 No 7-19 00:00: 00 &lt 2022-0 No 7-19 00:00: 00 &lt 2022-0 No 80 7-19 00:00: 00 &lt 2022-0 No 7-19 00:00: 00 &lt 2022-0 No 7-19 00:00: 00 &lt 2022-0 No 80 7-19 00:00: 00 &lt 2022-0 No 7-19 00:00: 00 &lt 2022-0 No 7-19 00:00: 00 &lt 2022-0 No 80 7-19 00:00: 00 &lt 2022-0 No 7-19 00:00: 00 &lt 2022-0 No 7-19 00:00: 00 &lt 2022-0 No 80 7-19 00:00: 00 &lt 2022-0 No 7-19 00:00: 00 &lt 2022-0 No 7- 00:00: 00 &lt 2022-0 No 80 7- 00:00: 00 TAKE 1 2022-0 No 5 TABLET BY 7- MOUTH EVERY 00:00: DAY 00 Dose 2022-0 No 75 Unknown 11-06 00:00: 00 TAKE 1 2022-0 No 5 TABLET BY 7- MOUTH EVERY 00:00: DAY 00 Dose 2022-0 No 75 Unknown 11-06 00:00: 00 TAKE 1 2022-0 No 5 TABLET BY 7- MOUTH EVERY 00:00: DAY 00 Dose 2022-0 No 75 Unknown 11-06 00:00: 00 TAKE 1 2022-0 No 5 TABLET BY 7- MOUTH EVERY 00:00: DAY 00 Dose 2022-0 No 75 Unknown 11-06 00:00: 00 TAKE 1 2022-0 No 5 TABLET BY 7- MOUTH EVERY 00:00: DAY 00 Dose 2022-0 No 75 Unknown 11-06 00:00: 00 &lt 2022-0 No 6-21 00:00: 00 &lt 2022-0 No 6-21 00:00: 00 &lt 2022-0 No 6-21 00:00: 00 &lt 2022-0 No 6-21 00:00: 00 &lt 2022-0 No 6-21 00:00: 00 &lt 2022-0 No 6-21 00:00: 00 &lt 2022-0 No 6-21 00:00: 00 &lt 2022-0 No 6-21 00:00: 00 &lt 2022-0 No 6-21 00:00: 00 &lt 2022-0 No 6-21 00:00: 00 Reshmaia 25 2-0 No 1mg mg tablet 08-07 00:00: 00 amlodipine 2022-0 No 1mg 10 mg 4-07 tablet 00:00: 00 atorvastati 2022-0 No 1mg n 80 mg 4-07 tablet 00:00: 00 Chuchouvia 25 2022-0 No 1mg mg tablet 08-07 00:00: 00 amlodipine 2022-0 No 1mg 10 mg 4-07 tablet 00:00: 00 atorvastati 2022-0 No 1mg n 80 mg 4-07 tablet 00:00: 00 Januvia 25 2022-0 No 1mg mg tablet 08-07 00:00: 00 amlodipine 2022-0 No 1mg 10 mg 4-07 tablet 00:00: 00 atorvastati 2022-0 No 1mg n 80 mg 4-07 tablet 00:00: 00 Januvia 25 2-0 No 1mg mg tablet 08-07 00:00: 00 amlodipine 2022-0 No 1mg 10 mg 4-07 tablet 00:00: 00 atorvastati 2022-0 No 1mg n 80 mg 4- tablet 00:00: 00 Januvia 25 2-0 No 1mg mg tablet 08-07 00:00: 00 amlodipine 2022-0 No 1mg 10 mg 4- tablet 00:00: 00 atorvastati 2022-0 No 1mg n 80 mg 4- tablet 00:00: 00 Bromfed DM 2022-0 No 5mg/5 2 mg-30 3-31 mL mg-10 mg/5 00:00: mL oral 00 syrup Bromfed DM 2022-0 No 5mg/5 2 mg-30 3-31 mL mg-10 mg/5 00:00: mL oral 00 syrup Bromfed DM 2022-0 No 5mg/5 2 mg-30 3-31 mL mg-10 mg/5 00:00: mL oral 00 syrup Bromfed DM 2022-0 No 5mg/5 2 mg-30 3-31 mL mg-10 mg/5 00:00: mL oral 00 syrup Bromfed DM 2022-0 No 5mg/5 2 mg-30 3-31 mL mg-10 [...] 2-0 No Unknown 3-16 00:00: 00 Dose 2022-0 No Unknown 3-16 00:00: 00 Dose 2022-0 No Unknown 3-16 00:00: 00 Dose 2022-0 No Unknown 3-16 00:00: 00 Dose 2-0 No Unknown 3-16 00:00: 00 Dose 2022-0 No Unknown 3-16 00:00: 00 Dose 2-0 No Unknown 3-16 00:00: 00 Dose 2-0 No Unknown 3-16 00:00: 00 Dose 2-0 No Unknown 3-16 00:00: 00 Dose 2-0 No Unknown 3-16 00:00: 00 Dose 2022-0 [...] 2-0 No Unknown 3-16 00:00: 00 levothyroxi 2021-0 Yes 1{tbl} Take 1 Un capri ne 200 mcg 3-03 tablet by ity of tablet 00:00: mouth [place] 00 every Medical morning. Branch levothyroxi 2021-0 2021- No 1{tbl} Take 1 U nivers ne 200 mcg 3-03 08-23 tablet by ity of tablet 00:00: 00:00 mouth [place] 00 :00 every Medical morning. Branch Januvia 25 2021-0 No 1mg mg tablet 2- 00:00: 00 Dose 2021-0 No Unknown 2-04 00:00: 00 Dose 2021-0 No Unknown 2- 00:00: 00 Januvia 25 2021-0 No 1mg mg tablet 2-04 00:00: 00 Dose 2022-0 No Unknown 2-04 00:00: 00 Dose 2022-0 No Unknown 2-04 00:00: 00 Januvia 25 2-0 No 1mg mg tablet 2-04 00:00: 00 Dose 2022-0 No Unknown 2-04 00:00: 00 Dose 2022-0 No Unknown 2-04 00:00: 00 Januvia 25 2-0 No 1mg mg tablet 2-04 00:00: 00 Dose 2022-0 No Unknown 2-04 00:00: 00 Dose 2022-0 No Unknown 2-04 00:00: 00 Januvia 25 2-0 No 1mg mg tablet 2-04 00:00: 00 levothyroxi 2-0 No 1mcg ne 200 mcg 2-04 tablet 00:00: 00 levothyroxi 2021-0 No 1mcg ne 25 mcg 2-04 tablet 00:00: 00 UNITHROID 2021-0 Yes 1{tbl} Take 1 Univ ers 25 mcg 2-04 tablet by ity of tablet 00:00: [facility] 00 every Medical morning. Branch UNITHROID 2021-0 2021- No 1{tbl} Take 1 Uni vers 25 mcg 2-04 08-23 tablet by ity of tablet 00:00: 00:00 mouth [place] 00 :00 every Medical morning. Branch lisinopriL 0 Yes 5mg Take 5 mg Un capri 5 mg tablet 1-07 by mouth ity of 00:00: daily. [address] lisinopriL 0 Yes 5mg Take 5 mg Un capri 5 mg tablet 1-07 by mouth ity of 00:00: daily. [address] amlodipine 2020-05 No 1mg 10 mg 2-30 tablet 00:00: 00 amlodipine 2020-1 No 1mg 10 mg 2-30 tablet 00:00: 00 amlodipine 2020-1 No 1mg 10 mg 2-30 tablet 00:00: 00 amlodipine 2020-1 No 1mg 10 mg 2-30 tablet 00:00: 00 amlodipine 2020-1 No 1mg 10 mg 2-30 tablet 00:00: 00 lidocaine 4 2020-05 No 1% % topical 2-02 cream 00:00: 00 cyclobenzap 2021-1 No 1mg rine 10 mg 2-02 tablet 00:00: 00 lidocaine 4 1-1 No 1% % topical 2-02 cream 00:00: 00 cyclobenzap 1-1 No 1mg rine 10 mg 2-02 tablet 00:00: 00 lidocaine 4 1-1 No 1% % topical 2-02 cream 00:00: 00 cyclobenzap 1-1 No 1mg rine 10 mg 2-02 tablet 00:00: 00 lidocaine 4 1-1 No 1% % topical 2-02 cream 00:00: 00 cyclobenzap 1-1 No 1mg rine 10 mg 2-02 tablet 00:00: 00 lidocaine 4 1-1 No 1% % topical 2-02 cream 00:00: 00 cyclobenzap 1-1 No 1mg rine 10 mg 2-02 tablet 00:00: 00 benzonatate 1-1 No 1mg 200 mg 1-09 capsule 00:00: 00 benzonatate 1-1 No 1mg 200 mg 1-09 capsule 00:00: 00 benzonatate 1-1 No 1mg 200 mg 1-09 capsule 00:00: 00 benzonatate 1-1 No 1mg 200 mg 1-09 capsule 00:00: 00 benzonatate 1-1 No 1mg 200 mg 1-09 capsule 00:00: 00 amlodipine 2021-0 No 1mg 10 mg 9-29 tablet 00:00: 00 sevelamer 2021-0 No 1mg carbonate 9-29 800 mg 00:00: tablet 00 amlodipine 2021-0 No 1mg 10 mg 9-29 tablet 00:00: 00 sevelamer 2021-0 No 1mg carbonate 9-29 800 mg 00:00: tablet 00 amlodipine 2021-0 No 1mg 10 mg 9-29 tablet 00:00: 00 sevelamer 2021-0 No 1mg carbonate 9-29 800 mg 00:00: tablet 00 amlodipine 2021-0 No 1mg 10 mg 9-29 tablet 00:00: 00 sevelamer 2021-0 No 1mg carbonate 9-29 800 mg 00:00: tablet 00 amlodipine 2021-0 No 1mg 10 mg 9-29 tablet 00:00: 00 sevelamer 2021-0 No 1mg carbonate 9-29 800 mg 00:00: tablet 00 cyclobenzap 2021-0 No 1mg rine 10 mg 9-15 tablet 00:00: 00 cyclobenzap 2021-0 No 1mg rine 10 mg 9-15 tablet 00:00: 00 cyclobenzap 2021-0 No 1mg rine 10 mg 9-15 tablet 00:00: 00 cyclobenzap 2021-0 No 1mg rine 10 mg 9-15 tablet 00:00: 00 cyclobenzap 2021-0 No 1mg rine 10 mg 9-15 tablet 00:00: 00 atorvastati 2021-0 No 1mg n 80 mg 6-09 tablet 00:00: 00 atorvastati 2021-0 No 1mg n 80 mg 6-09 tablet 00:00: 00 atorvastati 2021-0 No 1mg n 80 mg 6-09 tablet 00:00: 00 atorvastati 2021-0 No 1mg n 80 mg 6-09 tablet 00:00: 00 atorvastati 1-0 No 1mg n 80 mg 6-09 tablet 00:00: 00 fenofibrate 2021-0 No 1mg nanocrystal 6-07 lized 145 00:00: mg tablet 00 amlodipine 2021-0 No 1mg 10 mg 6-07 tablet 00:00: 00 sevelamer 2021-0 No 1mg carbonate 6-07 800 mg 00:00: tablet 00 Dose 2021-0 No Unknown 6-07 00:00: 00 fenofibrate 2021-0 No 1mg nanocrystal 6-07 lized 145 00:00: mg tablet 00 amlodipine 2021-0 No 1mg 10 mg 6-07 tablet 00:00: 00 sevelamer 2021-0 No 1mg carbonate 6-07 800 mg 00:00: tablet 00 Dose 2021-0 No Unknown 6-07 00:00: 00 fenofibrate 2021-0 No 1mg nanocrystal 6-07 lized 145 00:00: mg tablet 00 amlodipine 2021-0 No 1mg 10 mg 6-07 tablet 00:00: 00 sevelamer 2021-0 No 1mg carbonate 6-07 800 mg 00:00: tablet 00 Dose 2021-0 No Unknown 6-07 00:00: 00 fenofibrate 2021-0 No 1mg nanocrystal 6-07 lized 145 00:00: mg tablet 00 amlodipine 2021-0 No 1mg 10 mg 6-07 tablet 00:00: 00 sevelamer 2021-0 No 1mg carbonate 6-07 800 mg 00:00: tablet 00 Dose 2021-0 No Unknown 6-07 00:00: 00 fenofibrate 2021-0 No 1mg nanocrystal 6-07 lized 145 00:00: mg tablet 00 amlodipine 2021-0 No 1mg 10 mg 6-07 tablet 00:00: 00 sevelamer 2021-0 No 1mg carbonate 6-07 800 mg 00:00: tablet 00 levothyroxi 2021-0 No 1mcg ne 200 mcg 6-07 tablet 00:00: 00 sevelamer 2021-0 No 1mg carbonate 4-13 800 mg 00:00: tablet 00 hydroxyzine 2021-0 No 1mg HCl 25 mg 4-13 tablet 00:00: 00 levothyroxi 2021-0 No 1mcg ne 200 mcg 4-13 tablet 00:00: 00 sevelamer 2021-0 No 1mg carbonate 4-13 800 mg 00:00: tablet 00 hydroxyzine 2021-0 No 1mg HCl 25 mg 4-13 tablet 00:00: 00 levothyroxi 2021-0 No 1mcg ne 200 mcg 4-13 tablet 00:00: 00 sevelamer 2021-0 No 1mg carbonate 4-13 800 mg 00:00: tablet 00 hydroxyzine 2021-0 No 1mg HCl 25 mg 4-13 tablet 00:00: 00 levothyroxi 2021-0 No 1mcg ne 200 mcg 4-13 tablet 00:00: 00 sevelamer 2021-0 No 1mg carbonate 4-13 800 mg 00:00: tablet 00 hydroxyzine 2021-0 No 1mg HCl 25 mg 4-13 tablet 00:00: 00 levothyroxi 2021-0 No 1mcg ne 200 mcg 4-13 tablet 00:00: 00 sevelamer 2021-0 No 1mg carbonate 4-13 800 mg 00:00: tablet 00 hydroxyzine 2021-0 No 1mg HCl 25 mg 4-13 tablet 00:00: 00 levothyroxi 2021-0 No 1mcg ne 200 mcg 4-13 tablet 00:00: 00 amlodipine 2021-0 No 1mg 10 mg 4-12 tablet 00:00: 00 amlodipine 2021-0 No 1mg 10 mg 4-12 tablet 00:00: 00 fenofibrate 2021-0 No 1mg nanocrystal 4-12 lized 145 00:00: mg tablet 00 amlodipine 2021-0 No 1mg 10 mg 4-12 tablet 00:00: 00 amlodipine 2021-0 No 1mg 10 mg 4-12 tablet 00:00: 00 fenofibrate 2021-0 No 1mg nanocrystal 4-12 lized 145 00:00: mg tablet 00 amlodipine 2021-0 No 1mg 10 mg 4-12 tablet 00:00: 00 amlodipine 2021-0 No 1mg 10 mg 4-12 tablet 00:00: 00 fenofibrate 2021-0 No 1mg nanocrystal 4-12 lized 145 00:00: mg tablet 00 amlodipine 2021-0 No 1mg 10 mg 4-12 tablet 00:00: 00 amlodipine 2021-0 No 1mg 10 mg 4-12 tablet 00:00: 00 fenofibrate 2021-0 No 1mg nanocrystal 4-12 lized 145 00:00: mg tablet 00 amlodipine 2021-0 No 1mg 10 mg 4-12 tablet 00:00: 00 amlodipine 2021-0 No 1mg 10 mg 4-12 tablet 00:00: 00 fenofibrate 2021-0 No 1mg nanocrystal 4-12 lized 145 00:00: mg tablet 00 benzonatate 2021-0 No 1mg 200 mg 2-02 capsule 00:00: 00 Bromfed DM 2021-0 No 5mg/5 2 mg-30 2-02 mL mg-10 mg/5 00:00: mL oral 00 syrup benzonatate 2021-0 No 1mg 200 mg 2-02 capsule 00:00: 00 Bromfed DM 2021-0 No 5mg/5 2 mg-30 2-02 mL mg-10 mg/5 00:00: mL oral 00 syrup benzonatate 2021-0 No 1mg 200 mg 2-02 capsule 00:00: 00 Bromfed DM 2021-0 No 5mg/5 2 mg-30 2-02 mL mg-10 mg/5 00:00: mL oral 00 syrup benzonatate 1-0 No 1mg 200 mg 2-02 capsule 00:00: 00 Bromfed DM 1-0 No 5mg/5 2 mg-30 2-02 mL mg-10 mg/5 00:00: mL oral 00 syrup benzonatate 1-0 No 1mg 200 mg 2-02 capsule 00:00: 00 Bromfed DM 1-0 No 5mg/5 2 mg-30 2-02 mL mg-10 mg/5 00:00: mL oral 00 syrup amlodipine 1-0 No 1mg 10 mg 1-26 tablet 00:00: 00 amlodipine 1-0 No 1mg 10 mg 1-26 tablet 00:00: 00 amlodipine 1-0 No 1mg 10 mg 1-26 tablet 00:00: 00 amlodipine 1-0 No 1mg 10 mg 1-26 tablet 00:00: 00 amlodipine 1-0 No 1mg 10 mg 1-26 tablet 00:00: 00 glipizide 2019-1 No 1mg ER 5 mg 2-04 tablet, 00:00: extended 00 release 24 hr fenofibrate 2019- No 1mg nanocrystal 2-04 lized 145 00:00: mg tablet 00 atorvastati 2019-05 No 1mg n 40 mg 2-04 tablet 00:00: 00 glipizide 2019-1 No 1mg ER 5 mg 2-04 tablet, 00:00: extended 00 release 24 hr fenofibrate 2019-1 No 1mg nanocrystal 2-04 lized 145 00:00: mg tablet 00 atorvastati 2019- No 1mg n 40 mg 2-04 tablet 00:00: 00 glipizide 2019-1 No 1mg ER 5 mg 2-04 tablet, 00:00: extended 00 release 24 hr fenofibrate 2019-1 No 1mg nanocrystal 2-04 lized 145 00:00: mg tablet 00 atorvastati 2019- No 1mg n 40 mg 2-04 tablet 00:00: 00 glipizide 2019-1 No 1mg ER 5 mg 2-04 tablet, 00:00: extended 00 release 24 hr fenofibrate 2019-1 No 1mg nanocrystal 2-04 lized 145 00:00: mg tablet 00 atorvastati 2019- No 1mg n 40 mg 2-04 tablet 00:00: 00 glipizide 2019-05 No 1mg ER 5 mg 2-04 tablet, 00:00: extended 00 release 24 hr fenofibrate 2019- No 1mg nanocrystal 2-04 lized 145 00:00: mg tablet 00 atorvastati 2019-05 No 1mg n 40 mg 2-04 tablet 00:00: 00 diclofenac 2019-05 No 1% 1 % topical 2-02 gel 00:00: 00 amlodipine 2019-05 No 1mg 10 mg 2-02 tablet 00:00: 00 aspirin 81 2019-05 No 1mg mg 2-02 tablet,girma 00:00: yed release 00 aspirin 81 2019-05 No 1mg mg 2-02 tablet,girma 00:00: yed release 00 amlodipine 2019-05 No 1mg 10 mg 2-02 tablet 00:00: 00 sevelamer 2019-05 No 1mg carbonate 2-02 800 mg 00:00: tablet 00 sevelamer 2019-05 No 1mg carbonate 2-02 800 mg 00:00: tablet 00 atorvastati 2019-05 No 1mg n 10 mg 2-02 tablet 00:00: 00 atorvastati 2019-05 No 1mg n 10 mg 2-02 tablet 00:00: 00 calcium 2019- No 1(1,250 carbonate 2-02 mg) 500 mg 00:00: calcium 00 (1,250 mg) chewable tablet calcium 2019- No 1(1,250 carbonate 2-02 mg) 500 mg 00:00: calcium 00 (1,250 mg) chewable tablet levothyroxi 2019-05 No 1mcg ne 200 mcg 2-02 tablet 00:00: 00 levothyroxi 2019-05 No 1mcg ne 100 mcg 2-02 tablet 00:00: 00 levothyroxi 2019-05 No 1mcg ne 200 mcg 2-02 tablet 00:00: 00 levothyroxi 2019-05 No 1mcg ne 100 mcg 2-02 tablet 00:00: 00 diclofenac 2019-05 No 1% 1 % topical 2-02 gel 00:00: 00 amlodipine 2019-05 No 1mg 10 mg 2-02 tablet 00:00: 00 aspirin 81 2019-05 No 1mg mg 2-02 tablet,girma 00:00: yed release 00 aspirin 81 2019-05 No 1mg mg 2-02 tablet,girma 00:00: yed release 00 amlodipine 2019-05 No 1mg 10 mg 2-02 tablet 00:00: 00 sevelamer 2019-05 No 1mg carbonate 2-02 800 mg 00:00: tablet 00 sevelamer 2019-05 No 1mg carbonate 2-02 800 mg 00:00: tablet 00 atorvastati 2019-05 No 1mg n 10 mg 2-02 tablet 00:00: 00 atorvastati 2019-05 No 1mg n 10 mg 2-02 tablet 00:00: 00 calcium 2019- No 1(1,250 carbonate 2-02 mg) 500 mg 00:00: calcium 00 (1,250 mg) chewable tablet calcium 2019-05 No 1(1,250 carbonate 2-02 mg) 500 mg 00:00: calcium 00 (1,250 mg) chewable tablet levothyroxi 2019-05 No 1mcg ne 200 mcg 2-02 tablet 00:00: 00 levothyroxi 2019-05 No 1mcg ne 100 mcg 2-02 tablet 00:00: 00 levothyroxi 2019-05 No 1mcg ne 200 mcg 2-02 tablet 00:00: 00 levothyroxi 2019-05 No 1mcg ne 100 mcg 2-02 tablet 00:00: 00 diclofenac 2019-05 No 1% 1 % topical 2-02 gel 00:00: 00 amlodipine 2019-05 No 1mg 10 mg 2-02 tablet 00:00: 00 aspirin 81 2019-05 No 1mg mg 2-02 tablet,girma 00:00: yed release 00 aspirin 81 2019-05 No 1mg mg 2-02 tablet,girma 00:00: yed release 00 amlodipine 2019-05 No 1mg 10 mg 2-02 tablet 00:00: 00 sevelamer 2019-05 No 1mg carbonate 2-02 800 mg 00:00: tablet 00 sevelamer 2019-05 No 1mg carbonate 2-02 800 mg 00:00: tablet 00 atorvastati 2019-05 No 1mg n 10 mg 2-02 tablet 00:00: 00 atorvastati 2019-05 No 1mg n 10 mg 2-02 tablet 00:00: 00 calcium 2019- No 1(1,250 carbonate 2-02 mg) 500 mg 00:00: calcium 00 (1,250 mg) chewable tablet calcium 2019-05 No 1(1,250 carbonate 2-02 mg) 500 mg 00:00: calcium 00 (1,250 mg) chewable tablet levothyroxi 2019-05 No 1mcg ne 200 mcg 2-02 tablet 00:00: 00 levothyroxi 2019-05 No 1mcg ne 100 mcg 2-02 tablet 00:00: 00 levothyroxi 2019-05 No 1mcg ne 200 mcg 2-02 tablet 00:00: 00 levothyroxi 2019-05 No 1mcg ne 100 mcg 2-02 tablet 00:00: 00 diclofenac 2019-05 No 1% 1 % topical 2-02 gel 00:00: 00 amlodipine 2019-05 No 1mg 10 mg 2-02 tablet 00:00: 00 aspirin 81 2019-05 No 1mg mg 2-02 tablet,girma 00:00: yed release 00 aspirin 81 2019-05 No 1mg mg 2-02 tablet,girma 00:00: yed release 00 amlodipine 2019-05 No 1mg 10 mg 2-02 tablet 00:00: 00 sevelamer 2019-05 No 1mg carbonate 2-02 800 mg 00:00: tablet 00 sevelamer 2019-05 No 1mg carbonate 2-02 800 mg 00:00: tablet 00 atorvastati 2019-05 No 1mg n 10 mg 2-02 tablet 00:00: 00 atorvastati 2019-05 No 1mg n 10 mg 2-02 tablet 00:00: 00 calcium 2019-05 No 1(1,250 carbonate 2-02 mg) 500 mg 00:00: calcium 00 (1,250 mg) chewable tablet calcium 2019-05 No 1(1,250 carbonate 2-02 mg) 500 mg 00:00: calcium 00 (1,250 mg) chewable tablet levothyroxi 2019-05 No 1mcg ne 200 mcg 2-02 tablet 00:00: 00 levothyroxi 2019-05 No 1mcg ne 100 mcg 2-02 tablet 00:00: 00 levothyroxi 2019-05 No 1mcg ne 200 mcg 2-02 tablet 00:00: 00 levothyroxi 2019-05 No 1mcg ne 100 mcg 2-02 tablet 00:00: 00 diclofenac 2019-05 No 1% 1 % topical 2-02 gel 00:00: 00 amlodipine 2020-1 No 1mg 10 mg 2-02 tablet 00:00: 00 aspirin 81 2019-1 No 1mg mg 2-02 tablet,girma 00:00: yed release 00 aspirin 81 2019-1 No 1mg mg 2-02 tablet,girma 00:00: yed release 00 amlodipine 2019-1 No 1mg 10 mg 2-02 tablet 00:00: 00 sevelamer 2020-1 No 1mg carbonate 2-02 800 mg 00:00: tablet 00 sevelamer 2019-1 No 1mg carbonate 2-02 800 mg 00:00: tablet 00 atorvastati 2019-1 No 1mg n 10 mg 2-02 tablet 00:00: 00 atorvastati 2019-1 No 1mg n 10 mg 2-02 tablet 00:00: 00 calcium 2019-1 No 1(1,250 carbonate 2-02 mg) 500 mg 00:00: calcium 00 (1,250 mg) chewable tablet calcium 2019-1 No 1(1,250 carbonate 2-02 mg) 500 mg 00:00: calcium 00 (1,250 mg) chewable tablet levothyroxi 2019-1 No 1mcg ne 200 mcg 2-02 tablet 00:00: 00 levothyroxi 2020-1 No 1mcg ne 100 mcg 2-02 tablet 00:00: 00 levothyroxi 2020-1 No 1mcg ne 200 mcg 2-02 tablet 00:00: 00 levothyroxi 2020-1 No 1mcg ne 100 mcg 2-02 tablet 00:00: 00 amlodipine 2020-1 No 1mg 10 mg 0-21 tablet 00:00: 00 amlodipine 2020-1 No 1mg 10 mg 0-21 tablet 00:00: 00 amlodipine 2020-1 No 1mg 10 mg 0-21 tablet 00:00: 00 amlodipine 2020-1 No 1mg 10 mg 0-21 tablet 00:00: 00 amlodipine 2020-1 No 1mg 10 mg 0-21 tablet 00:00: 00 diclofenac 2020-0 No 1% 1 % topical 9-13 gel 00:00: 00 diclofenac 2020-0 No 1% 1 % topical 9-13 gel 00:00: 00 diclofenac 2020-0 No 1% 1 % topical 9-13 gel 00:00: 00 diclofenac 2020-0 No 1% 1 % topical 9-13 gel 00:00: 00 diclofenac 2020-0 No 1% 1 [...] tablet amlodipine 2020-0 No 1mg 10 mg 9-08 [...] tablet amlodipine 2020-0 No 1mg 10 mg 9-08 [...] tablet amlodipine 2020-0 No 1mg 10 mg 9-08 [...] tablet amlodipine 2020-0 No 1mg 10 mg 9-08 tablet 00:00: 00 aspirin 81 2020-0 No 1mg mg 9-08 tablet,girma 00:00: yed release 00 cyclobenzap 2020-0 No 1mg rine 10 mg 9-08 tablet 00:00: 00 sevelamer 2020-0 No 1mg carbonate 9-08 800 mg 00:00: tablet 00 calcium 2020-0 No 1(1,250 carbonate 9-08 mg) 500 mg 00:00: calcium 00 (1,250 mg) chewable tablet lovastatin 2020-0 Yes 10mg QD Take [address] [facility] (MEVACOR) 8-15 [facility] 10 [facility] 17:30: nightly. Medical tablet 21 [place] calcium 2020-0 Yes 3{tbl} Q.[id number] Take [address] [facility] carbonate 8-15 [id number] tablets by [facility] (TUMS) 500 17:30: 3D mouth 3 [facility] ben[facility] mg chewable 21 (three) Cente r tablet times daily. furosemide 2020-0 Yes 20mg QD Take [address] [facility] (LASIX) 20 8-15 by [facility] tablet 17:30: daily. Medica l 21 [place] lovastatin 2020-0 Yes 10mg QD Take [address] [facility] (MEVACOR) 8-15 [facility] 10 MG 17:30: nightly. Medical tablet 21 [place] calcium 2020-0 Yes 3{tbl} Q.[id number] Take [address] [facility] carbonate 8-15 [id number] tablets by [facility] (TUMS) 500 17:30: 3D mouth 3 [facility]i benjy mg chewable 21 (three) Cente r tablet times daily. furosemide 2020-0 Yes 20mg QD Take [address] [facility] (LASIX) 20 8-15 by [facility] tablet 17:30: daily. Medica l 21 [place] lovastatin 2020-0 Yes 10mg QD Take [address] [facility] (MEVACOR) 8-15 by [facility] 10 MG 17:30: nightly. Medical tablet 21 [place] calcium 2020-0 Yes 3{tbl} Q.[id number] Take [address] [facility] carbonate 8-15 [id number] tablets by [facility] (TUMS) 500 17:30: 3D mouth 3 [facility]i benjy mg chewable 21 (three) Cente r tablet times daily. furosemide 2020-0 Yes 20mg QD Take [address] [facility] (LASIX) 20 8-15 by [facility] tablet 17:30: daily. Medica l 21 [place] lovastatin 2020-0 Yes 10mg QD Take [address] [facility] (MEVACOR) 8-15 [facility] 10 MG 17:30: nightly. Medical tablet 21 [place] calcium 2020-0 Yes 3{tbl} Q.[id number] Take [address] [facility] carbonate 8-15 [id number] tablets by [facility] (TUMS) 500 17:30: 3D mouth 3 Medi benjy mg chewable 21 (three) Cente r tablet times daily. furosemide 2020-0 Yes 20mg QD Take [address] [facility] (LASIX) 20 8-15 by [facility] tablet 17:30: daily. Medica l 21 [place] cyclobenzap 2020-0 Yes 1{tbl} QD Take [address] [facility] [address] [facility] rine 8-04 tablet by [facility] (FLEXERIL) 00:00: mouth Medica l 10 MG 00 daily. [place] tablet cyclobenzap 2020-0 Yes 1{tbl} QD Take [address] [facility] [address] [facility] rine 8-04 tablet by [facility] (FLEXERIL) 00:00: mouth [facility]ica [facility] 10 MG 00 daily. Center tablet cyclobenzap 2020-0 Yes 1{tbl} QD Take [address] [facility] [address] [facility] rine 8-04 tablet by [facility] (FLEXERIL) 00:00: mouth Medica l 10 MG 00 daily. [place] tablet cyclobenzap 2020-0 Yes 1{tbl} QD Take [address] [facility] [address] [facility] rine 8-04 tablet by [facility] (FLEXERIL) 00:00: mouth [facility]ica [facility] 10 MG 00 daily. Center tablet amlodipine 2020-0 No 1mg 10 mg 8-03 tablet 00:00: 00 amlodipine 2020-0 No 1mg 10 mg 8-03 tablet 00:00: 00 amlodipine 2020-0 No 1mg 10 mg 8-03 tablet 00:00: 00 amlodipine 2020-0 No 1mg 10 mg 8-03 tablet 00:00: 00 amlodipine 2020-0 No 1mg 10 mg 8-03 tablet 00:00: 00 ergocalcife 2020-0 Yes 1{capsu Q7D Take [address] [facility] rol 7-19 le} capsule by [facility] (ERGOCALCIF 00:00: mouth once Medical JAYESH) 1,250 00 a week. Cente r mcg (50,000 unit) capsule ergocalcife 2020-0 Yes 1{capsu Q7D Take [address] rol 7-19 le} capsule by [facility] (ERGOCALCIF 00:00: mouth once Medical JAYESH) 1,250 00 a week. Cente r mcg (50,000 unit) capsule ergocalcife 2020-0 Yes 1{capsu Q7D Take [address] rol 7-19 le} capsule by [facility] (ERGOCALCIF 00:00: mouth once Medical JAYESH) 1,250 00 a week. Cente r mcg (50,000 unit) capsule ergocalcife 2020-0 Yes 1{capsu Q7D Take [address] rol 7-19 le} capsule by [facility] (ERGOCALCIF 00:00: mouth once Medical JAYESH) 1,250 00 a week. Cente r mcg (50,000 unit) capsule cyclobenzap 2020-0 No 1mg rine 10 mg 7-09 tablet 00:00: 00 levothyroxi 2020-0 No 1mcg ne 200 mcg 7-09 tablet 00:00: 00 levothyroxi 2020-0 No 1mcg ne 100 mcg 7-09 tablet 00:00: 00 cyclobenzap 2020-0 No 1mg rine 10 mg 7-09 tablet 00:00: 00 levothyroxi 2020-0 No 1mcg ne 200 mcg 7-09 tablet 00:00: 00 levothyroxi 2020-0 No 1mcg ne 100 mcg 7-09 tablet 00:00: 00 cyclobenzap 2020-0 No 1mg rine 10 mg 7-09 tablet 00:00: 00 levothyroxi 2020-0 No 1mcg ne 200 mcg 7-09 tablet 00:00: 00 levothyroxi 2020-0 No 1mcg ne 100 mcg 7-09 tablet 00:00: 00 cyclobenzap 2020-0 No 1mg rine 10 mg 7-09 tablet 00:00: 00 levothyroxi 2020-0 No 1mcg ne 200 mcg 7-09 tablet 00:00: 00 levothyroxi 2020-0 No 1mcg ne 100 mcg 7-09 tablet 00:00: 00 cyclobenzap 2020-0 No 1mg [...] 1mg 10 mg 6-18 tablet 00:00: 00 AURYXIA 210 2020-0 Yes TAKE BY [facility] mg iron Tab 6-01 MOUTH 2 [facility]: TABLETS [facility] 00 WITH MEALS Center 3 TIMES A DAY AURYXIA 210 2020-0 Yes TAKE BY [facility] mg iron Tab 6-01 MOUTH 2 [facility] 00:[facility]: TABLETS [facility] 00 WITH MEALS Center 3 TIMES A DAY AURYXIA 210 2020-0 Yes TAKE BY [facility] mg iron Tab 6-01 MOUTH 2 [facility] 00:[facility]: TABLETS Medical 00 WITH MEALS Center 3 TIMES A DAY AURYXIA 210 2020-0 Yes TAKE BY [facility] mg iron Tab 6-01 MOUTH 2 [facility] 00:[facility]: TABLETS Medical 00 WITH MEALS Center 3 TIMES A DAY amlodipine 2020-0 No 1mg 10 mg 5-15 tablet 00:00: 00 amlodipine 2020-0 No 1mg 10 mg 5-15 tablet 00:00: 00 amlodipine 2020-0 No 1mg 10 mg 5-15 tablet 00:00: 00 amlodipine 2020-0 No 1mg 10 mg 5-15 tablet 00:00: 00 amlodipine 2020-0 No 1mg 10 mg 5-15 tablet 00:00: 00 atorvastati 2020-0 Yes 1{tbl} QD Take [address] [facility] [address] [facility] (LIPITOR) 5-15 tablet by [facility] 10 MG 00:00: mouth Medical tablet 00 daily. [place] atorvastati 2020-0 Yes 1{tbl} QD Take [address] [facility] (LIPITOR) 5-15 tablet by [facility] 10 MG 00:00: mouth Medical tablet 00 daily. [place] atorvastati 2020-0 Yes 1{tbl} QD Take [address] [facility] [address] [facility] (LIPITOR) 5-15 tablet by [facility] 10 MG 00:00: mouth Medical tablet 00 daily. [place] atorvastati 2020-0 Yes 1{tbl} QD Take [address] [facility] (LIPITOR) 5-15 tablet by [facility] 10 MG 00:00: mouth Medical tablet 00 daily. [place] aspirin 81 2020-0 No 1mg mg 3-04 [...] mcg 3-04 tablet 00:00: 00 aspirin 81 2020-0 No [...] 00:00: calcium 00 (1,250 mg) chewable tablet aspirin 81 2020-0 No 1mg mg 3-04 tablet,girma 00:00: yed release 00 amlodipine 2020-0 No 1mg 10 mg 3-04 tablet 00:00: 00 hydrochloro 2020-0 No 1mg thiazide 25 3-04 mg tablet 00:00: 00 levothyroxi 2020-0 No 1mcg ne 200 mcg 3-04 tablet 00:00: 00 sevelamer 2020-0 No 1mg carbonate 3-04 800 mg 00:00: tablet 00 atorvastati 2020-0 No 1mg n 10 mg 3-04 tablet 00:00: 00 calcium 2020-0 No 1(1,250 carbonate 3-04 mg) 500 mg 00:00: calcium 00 (1,250 mg) chewable tablet levothyroxi 2020-0 No 1mcg ne 200 mcg 3-04 tablet 00:00: 00 levothyroxi 2020-0 No 1mcg ne 100 mcg 3-04 tablet 00:00: 00 levothyroxi 2020-0 No 1mcg ne 100 mcg 3-04 tablet 00:00: 00 aspirin 81 2020-0 No [...] mcg 3-04 tablet 00:00: 00 aspirin 81 2020-0 No [...] ne 100 mcg 3-04 tablet 00:00: 00 amLODIPine 2020-0 Yes 10mg QD Take [address] [facility] (NORVASC) 1-16 [facility] 10 MG 00:00: daily . Medical tablet 00 [place] amLODIPine 2020-0 Yes 10mg QD Take [address] [facility] (NORVASC) 1-16 [facility] 10 MG 00:00: daily . Medical tablet 00 [place] amLODIPine 2020-0 Yes 10mg QD Take [address] [facility] (NORVASC) 1-16 [facility] 10 MG 00:00: daily . Medical tablet 00 [place] amLODIPine 2020-0 Yes 10mg QD Take [address] (NORVASC) 1-16 [facility] 10 MG 00:00: daily . Medical tablet 00 [place] aspirin 81 2020-0 No 1mg mg 1-10 tablet,girma 00:00: yed release 00 sevelamer 2020-0 No 1mg carbonate 1-10 800 mg 00:00: tablet 00 calcium 2020-0 No 1(1,250 carbonate 1-10 mg) 500 mg 00:00: calcium 00 (1,250 mg) chewable tablet levothyroxi 2020-0 No 2mcg ne 125 mcg 1-10 tablet 00:00: 00 aspirin 81 2020-0 No 1mg mg 1-10 tablet,girma 00:00: yed release 00 sevelamer 2020-0 No 1mg carbonate 1-10 800 mg 00:00: tablet 00 calcium 2020-0 No 1(1,250 carbonate 1-10 mg) 500 mg 00:00: calcium 00 (1,250 mg) chewable tablet levothyroxi 2020-0 No 2mcg ne 125 mcg 1-10 tablet 00:00: 00 aspirin 81 2020-0 No 1mg mg 1-10 tablet,girma 00:00: yed release 00 sevelamer 2020-0 No 1mg carbonate 1-10 800 mg 00:00: tablet 00 calcium 2020-0 No 1(1,250 carbonate 1-10 mg) 500 mg 00:00: calcium 00 (1,250 mg) chewable tablet levothyroxi 2020-0 No 2mcg ne 125 mcg 1-10 tablet 00:00: 00 aspirin 81 2020-0 No 1mg mg 1-10 tablet,girma 00:00: yed release 00 sevelamer 2020-0 No 1mg carbonate 1-10 800 mg 00:00: tablet 00 calcium 2020-0 No 1(1,250 carbonate 1-10 mg) 500 mg 00:00: calcium 00 (1,250 mg) chewable tablet levothyroxi 2020-0 No 2mcg ne 125 mcg 1-10 tablet 00:00: 00 aspirin 81 2020-0 No 1mg mg 1-10 tablet,girma 00:00: yed release 00 sevelamer 2020-0 No 1mg carbonate 1-10 800 mg 00:00: tablet 00 calcium 2020-0 No 1(1,250 carbonate 1-10 mg) 500 mg 00:00: calcium 00 (1,250 mg) chewable tablet levothyroxi 2020-0 No 2mcg ne 125 mcg 1-10 tablet 00:00: 00 sevelamer 2020-0 Yes 800mg Q.[id number] [address] [facility] (RENVELA) 1-10 [id number] (three) [facility] 800 mg 00:00: 3D times Medical tablet 00 daily . [place] UNITHROID 2020-0 Yes 125ug QD Take [address] [facility] 125 mcg 1-10 mcg by [facility] tablet 00:00: mouth Medical 00 nightly . [place] sevelamer 2020-0 Yes 800mg Q.[id number] [address] [facility] ([place]) 1-10 [id number] (three) [facility] 800 mg 00:00: 3D times Medical tablet 00 daily . [place] UNITHROID 2020-0 Yes 125ug QD Take [address] [facility] 125 mcg 1-10 mcg by [facility] tablet 00:00: mouth Medical 00 nightly . [place] sevelamer 2020-0 Yes 800mg Q.[id number] [address] [facility] ([place]) 1-10 [id number] (three) [facility] 800 mg 00:00: 3D times Medical tablet 00 daily . [place] UNITHROID 2020-0 Yes 125ug QD Take [address] [facility] 125 mcg 1-10 mcg by [facility] tablet 00:00: mouth Medical 00 nightly . [place] sevelamer 2020-0 Yes 800mg Q.[id number] [address] [facility] ([place]) 1-10 [id number] (three) [facility] 800 mg 00:00: 3D times Medical tablet 00 daily . [place] UNITHROID 2020-0 Yes 125ug QD Take [address] [facility] 125 mcg 1-10 mcg by [facility] tablet 00:00: mouth Medical 00 nightly . [place] amlodipine 2020-0 No 1mg 10 mg 1-08 tablet 00:00: 00 amlodipine 2020-0 No 1mg 10 mg 1-08 tablet 00:00: 00 amlodipine 2020-0 No 1mg 10 mg 1-08 tablet 00:00: 00 amlodipine 2020-0 No 1mg 10 mg 1-08 tablet 00:00: 00 amlodipine 2020-0 No 1mg 10 mg 1-08 tablet 00:00: 00 hydrochloro 2020-0 No 1mg thiazide 25 1-07 mg tablet 00:00: 00 indomethaci 2020-0 No 1mg n 50 mg 1-07 capsule 00:00: 00 hydrochloro 2020-0 No 1mg thiazide 25 1-07 mg tablet 00:00: 00 indomethaci 2020-0 No 1mg n 50 mg 1-07 capsule 00:00: 00 hydrochloro 2020-0 No 1mg thiazide 25 1-07 mg tablet 00:00: 00 indomethaci 2020-0 No 1mg n 50 mg 1-07 capsule 00:00: 00 hydrochloro 2020-0 No 1mg thiazide 25 1-07 mg tablet 00:00: 00 indomethaci 2020-0 No 1mg n 50 mg 1-07 capsule 00:00: 00 hydrochloro 2020-0 No 1mg thiazide 25 1-07 mg tablet 00:00: 00 indomethaci 2020-0 No 1mg n 50 mg 1-07 capsule 00:00: 00 levothyroxi 2019-1 No 2mcg ne 125 mcg 2-04 tablet 00:00: 00 levothyroxi 2019-1 No 2mcg ne 125 mcg 2-04 tablet 00:00: 00 levothyroxi 2019-1 No 2mcg ne 125 mcg 2-04 tablet 00:00: 00 levothyroxi 2019-1 No 2mcg ne 125 mcg 2-04 tablet 00:00: 00 levothyroxi 2019-1 No 2mcg ne 125 mcg 2-04 tablet 00:00: 00 amlodipine 2019-1 No 1mg 10 mg 1-19 tablet 00:00: 00 aspirin 81 2019-1 No 1mg mg 1-19 tablet,girma 00:00: yed release 00 atorvastati 2019-1 No 1mg n 10 mg 1-19 tablet 00:00: 00 calcium 2019-1 No 1(1,250 carbonate 1-19 mg) 500 mg 00:00: calcium 00 (1,250 mg) chewable tablet amlodipine 2018- No 1mg 10 mg 1-19 tablet 00:00: 00 aspirin 81 2018- No 1mg mg 1-19 tablet,girma 00:00: yed release 00 atorvastati 2018- No 1mg n 10 mg 1-19 tablet 00:00: 00 calcium 2018- No 1(1,250 carbonate 1-19 mg) 500 mg 00:00: calcium 00 (1,250 mg) chewable tablet amlodipine 2018- No 1mg 10 mg 1-19 tablet 00:00: 00 aspirin 81 2018- No 1mg mg 1-19 tablet,girma 00:00: yed release 00 atorvastati 2018- No 1mg n 10 mg 1-19 tablet 00:00: 00 calcium 2018- No 1(1,250 carbonate 1-19 mg) 500 mg 00:00: calcium 00 (1,250 mg) chewable tablet amlodipine 2018- No 1mg 10 mg 1-19 tablet 00:00: 00 aspirin 81 2018- No 1mg mg 1-19 tablet,girma 00:00: yed release 00 atorvastati 2018- No 1mg n 10 mg 1-19 tablet 00:00: 00 calcium 2018- No 1(1,250 carbonate 1-19 mg) 500 mg 00:00: calcium 00 (1,250 mg) chewable tablet amlodipine 2018- No 1mg 10 mg 1-19 tablet 00:00: 00 aspirin 81 2018- No 1mg mg 1-19 tablet,girma 00:00: yed release 00 atorvastati 2018- No 1mg n 10 mg 1-19 tablet 00:00: 00 calcium 2018-1 No 1(1,250 carbonate 1-19 mg) 500 mg 00:00: calcium 00 (1,250 mg) chewable tablet loratadine 2018- No 1mg 10 mg 1-12 tablet 00:00: 00 benzonatate 2018- No 1mg 200 mg 1-12 capsule 00:00: 00 loratadine 2018- No 1mg 10 mg 1-12 tablet 00:00: 00 benzonatate 2018- No 1mg 200 mg 1-12 capsule 00:00: 00 loratadine 2018- No 1mg 10 mg 1-12 tablet 00:00: 00 benzonatate 2018-05 No 1mg 200 mg 1-12 capsule 00:00: 00 loratadine 2018-05 No 1mg 10 mg 1-12 tablet 00:00: 00 benzonatate 2018-05 No 1mg 200 mg 1-12 capsule 00:00: 00 loratadine 2018-05 No 1mg 10 mg 1-12 tablet 00:00: 00 benzonatate 2018-05 No 1mg 200 mg 1-12 capsule 00:00: 00 gabapentin 2018-05 Yes [id number] 100mg Take 1 [facility] 100 mg 0-22 capsule by [facility] capsule 00:00: mouth 3 (three) Medical times Branch daily. gabapentin 2018-05 Yes [id number] 100mg Take 1 [facility] 100 mg 0-22 capsule by [facility] capsule 00:00: mouth 3 (three) Medical times Branch daily. aspirin 81 2018-05 No 1mg mg 0-01 tablet,girma 00:00: yed release 00 amlodipine 2018-05 No 1mg 10 mg 0-01 tablet 00:00: 00 calcium 2018-05 No 1(1,250 carbonate 0-01 mg) 500 mg 00:00: calcium 00 (1,250 mg) chewable tablet aspirin 81 2018-05 No 1mg mg 0-01 tablet,girma 00:00: yed release 00 amlodipine 2018-05 No 1mg 5 mg tablet 0-01 00:00: 00 aspirin 81 2018-05 No 1mg mg 0-01 tablet,girma 00:00: yed release 00 amlodipine 2018-05 No 1mg 10 mg 0-01 tablet 00:00: 00 calcium 2018-05 No 1(1,250 carbonate 0-01 mg) 500 mg 00:00: calcium 00 (1,250 mg) chewable tablet calcium 2018-05 No 1(1,250 carbonate 0-01 mg) 500 mg 00:00: calcium 00 (1,250 mg) chewable tablet levothyroxi 2018-05 No 1mcg ne 200 mcg 0-01 tablet 00:00: 00 levothyroxi 2018-05 No 1mcg ne 200 mcg 0-01 tablet 00:00: 00 calcium 2018-05 No 1(1,250 carbonate 0-01 mg) 500 mg 00:00: calcium 00 (1,250 mg) chewable tablet levothyroxi 2018-05 No 1mcg ne 200 mcg 0-01 tablet 00:00: 00 levothyroxi 2018- No 1mcg ne 200 mcg 0-01 tablet 00:00: 00 aspirin 81 2018-05 No 1mg mg 0-01 tablet,girma 00:00: yed release 00 amlodipine 2018- No 1mg 5 mg tablet 0-01 00:00: 00 aspirin 81 2018-05 No 1mg mg 0-01 tablet,girma 00:00: yed release 00 amlodipine 2018- No 1mg 10 mg 0-01 tablet 00:00: 00 calcium 2018- No 1(1,250 carbonate 0-01 mg) 500 mg 00:00: calcium 00 (1,250 mg) chewable tablet calcium 2018- No 1(1,250 carbonate 0-01 mg) 500 mg 00:00: calcium 00 (1,250 mg) chewable tablet levothyroxi 2018-05 No 1mcg ne 200 mcg 0-01 tablet 00:00: 00 levothyroxi 2018-05 No 1mcg ne 200 mcg 0-01 tablet 00:00: 00 aspirin 81 2018-05 No 1mg mg 0-01 tablet,girma 00:00: yed release 00 amlodipine 2018- No 1mg 5 mg tablet 0-01 00:00: 00 aspirin 81 2018-05 No 1mg mg 0-01 tablet,girma 00:00: yed release 00 amlodipine 2018- No 1mg 10 mg 0-01 tablet 00:00: 00 calcium 2018- No 1(1,250 carbonate 0-01 mg) 500 mg 00:00: calcium 00 (1,250 mg) chewable tablet calcium 2018-05 No 1(1,250 carbonate 0-01 mg) 500 mg 00:00: calcium 00 (1,250 mg) chewable tablet levothyroxi 2018-05 No 1mcg ne 200 mcg 0-01 tablet 00:00: 00 levothyroxi 2018- No 1mcg ne 200 mcg 0-01 tablet 00:00: 00 aspirin 81 2018-05 No 1mg mg 0-01 tablet,girma 00:00: yed release 00 amlodipine 2018- No 1mg 5 mg tablet 0-01 00:00: 00 aspirin 81 2018-05 No 1mg mg 0-01 tablet,girma 00:00: yed release 00 amlodipine 2018-05 No 1mg 5 mg tablet 0-01 00:00: 00 aspirin 81 2018-05 No 1mg mg 0-01 tablet,girma 00:00: yed release 00 amlodipine 2018-05 No 1mg 10 mg 0-01 tablet 00:00: 00 calcium 2018-05 No 1(1,250 carbonate 0-01 mg) 500 mg 00:00: calcium 00 (1,250 mg) chewable tablet calcium 2018-05 No 1(1,250 carbonate 0-01 mg) 500 mg 00:00: calcium 00 (1,250 mg) chewable tablet levothyroxi 2018-05 No 1mcg ne 200 mcg 0-01 tablet 00:00: 00 levothyroxi 2018-05 No 1mcg ne 200 mcg 0-01 tablet 00:00: 00 amLODIPine Yes [id number] 10mg Take 1 [facility] 10 mg 9-16 tablet by [facility] tablet 00:00: mouth [place] 00 daily. [facility] aspirin 81 Yes [id number] 81mg Take 1 [facility] mg chewable 9-16 tablet by [facility] tablet 00:00: mouth [place] 00 daily. [facility] atorvastati Yes [id number] 40mg Take 2 [facility] n 20 mg 9-16 tablets by [facility] tablet 00:00: mouth at [place] 00 bedtime. Medical [facility] calcium Yes [id number] 1000mg Take 2 [facility] carbonate 9-16 tablets by [facility] of (CALCIUM 00:00: mouth 3 [place] 500) 500 mg 00 (three) Medic al calcium times Branch (1,250 mg) daily with tablet meals. meclizine Yes [id number] 25mg Take 2 [facility] nivers 12.5 mg 9-16 tablets by [facility] of tablet 00:00: mouth 3 [place] 00 (three) Medical times Branch daily as needed for Dizziness. Para mareo (for dizziness) sevelamer Yes [id number] 800mg Take 1 [facility] 800 mg 9-16 tablet by [facility] tablet 00:00: mouth 3 [place] 00 (three) Medical times Branch daily with meals. amLODIPine Yes [id number] 10mg Take 1 [facility] 10 mg 9-16 tablet by [facility] tablet 00:00: mouth [place] 00 daily. [facility] aspirin 81 Yes [id number] 81mg Take 1 [facility] mg chewable 9-16 tablet by [facility] tablet 00:00: mouth [place] 00 daily. [facility] atorvastati Yes [id number] 40mg Take 2 [facility] n 20 mg 9-16 tablets by [facility] tablet 00:00: mouth at [place] 00 bedtime. [facility] calcium Yes [id number] 1000mg Take 2 [facility] carbonate 9-16 tablets by [facility] of (CALCIUM 00:00: mouth 3 [place] 500) 500 mg 00 (three) Medic al calcium times Branch (1,250 mg) daily with tablet meals. meclizine Yes [id number] 25mg Take 2 [facility] 12.5 mg 9-16 tablets by [facility] tablet 00:00: mouth 3 [place] 00 (three) Medical times Branch daily as needed for Dizziness. Para mare[place] (for dizziness) sevelamer Yes [id number] 800mg Take 1 [facility] 800 mg 9-16 tablet by [facility] tablet 00:00: mouth 3 [place] 00 (three) Medical times [facility] daily with meals. lovastatin Yes 20mg QD Take 20 mg [facility] (MEVACOR) 9-[address] 10 MG 15:20: nightly. [facility] tablet 50 l amLODIPine Yes 10mg QD Take 10 mg [facility] (NORVASC) 9-[address] 10 mg 15:20: daily. [facility] tablet 50 l levothyroxi Yes 150ug QD Take 150 [facility] ne 9-[address] (SYNTHROID, 15:20: mouth [facility] LEVOXYL) 50 daily. l 150 mcg tablet lovastatin Yes 20mg QD Take 20 mg [facility] (MEVACOR) 9-[address] 10 MG 15:20: nightly. [facility] tablet 50 l amLODIPine Yes 10mg QD Take 10 mg [facility] (NORVASC) 9-[address] 10 mg 15:20: daily. [facility] tablet 50 l levothyroxi [id number] Yes 150ug QD Take 150 M [facility] ne 9-05 mcg by [facility] (SYNTHROID, 15:20: mouth [facility] LEVOXYL) 50 daily. l 150 mcg tablet lovastatin Yes 20mg QD Take 20 mg M ethodi (MEVACOR) 9-[address] 10 MG 15:20: nightly. [facility]osp[facility] tablet 50 l amLODIPine 2019-0 Yes 10mg QD Take 10 mg M ethodi (NORVASC) 9-[address] 10 mg 15:20: daily. [facility]ospita tablet 50 l levothyroxi 2019-0 Yes 150ug QD Take 150 M ethodi ne 9-[address] (SYNTHROID, 15:20: mouth Hospi ta LEVOXYL) 50 daily. l 150 mcg tablet lovastatin 2019-0 Yes 20mg QD Take 20 mg M ethodi (MEVACOR) 9-[address] 10 MG 15:20: nightly. [facility]ospita tablet 50 l amLODIPine 2019-0 Yes 10mg QD Take 10 mg M ethodi (NORVASC) 9-[address] 10 mg 15:20: daily. [facility]ospita tablet 50 l levothyroxi 2019-0 Yes 150ug QD Take 150 M ethodi ne 9-[address] (SYNTHROID, 15:20: mouth Hospi ta LEVOXYL) 50 daily. l 150 mcg tablet lovastatin 2019-0 Yes 20mg QD Take 20 mg M ethodi (MEVACOR) 9-[address] 10 MG 15:20: nightly. [facility]ospita tablet 50 l amLODIPine 2019-0 Yes 10mg QD Take 10 mg M ethodi (NORVASC) 9-[address] 10 mg 15:20: daily. [facility]ospita tablet 50 l levothyroxi 2019-0 Yes 150ug QD Take 150 M ethodi ne 9-[address] (SYNTHROID, 15:20: mouth Hospi ta LEVOXYL) 50 daily. l 150 mcg tablet levothyroxi 2019-0 No 1mcg ne 200 mcg 8-22 tablet 00:00: 00 levothyroxi 2019-0 No 1mcg ne 200 mcg 8-22 tablet 00:00: 00 levothyroxi 2019-0 No 1mcg ne 200 mcg 8-22 tablet 00:00: 00 levothyroxi 2019-0 No 1mcg ne 200 mcg 8-22 tablet 00:00: 00 levothyroxi 2019-0 No 1mcg ne 200 mcg 8-22 tablet 00:00: 00 lovastatin 2019-0 No 1mg 20 mg 8-21 tablet 00:00: 00 amlodipine 2019-0 No 1mg 10 mg 8-21 tablet 00:00: 00 levothyroxi 2019-0 No 1mcg ne 150 mcg 8-21 tablet 00:00: 00 lovastatin 2019-0 No 1mg 20 mg 8-21 tablet 00:00: 00 amlodipine 2019-0 No 1mg 10 mg 8-21 tablet 00:00: 00 levothyroxi 2019-0 No 1mcg ne 150 mcg 8-21 tablet 00:00: 00 lovastatin 2019-0 No 1mg 20 mg 8-21 tablet 00:00: 00 amlodipine 2019-0 No 1mg 10 mg 8-21 tablet 00:00: 00 levothyroxi 2019-0 No 1mcg ne 150 mcg 8-21 tablet 00:00: 00 lovastatin 2019-0 No 1mg 20 mg 8-21 tablet 00:00: 00 amlodipine 2019-0 No 1mg 10 mg 8-21 tablet 00:00: 00 levothyroxi 2019-0 No 1mcg ne 150 mcg 8-21 tablet 00:00: 00 lovastatin 2019-0 No 1mg 20 mg 8-21 tablet 00:00: 00 amlodipine 2019-0 No 1mg 10 mg 8-21 tablet 00:00: 00 levothyroxi 2019-0 No 1mcg ne 150 mcg 8-21 tablet 00:00: 00 Immunizations Ordered Filled Immunization Date Status Comments Sour e Immunization Name Name Roger CLEMENSID-19 2021-12-02 Completed Vaccine 00:00:00 Padminia COVID-19 2021-12-02 Completed Vaccine 00:00:00 Padminia COVID-19 2021-12-02 Completed Vaccine 00:00:00 Moderna COVID-19 2021-12-02 Completed Vaccine 00:00:00 Moderna COVID-19 2021-12-02 Completed Vaccine 00:00:00 Moderna COVID-19 2021-02-19 Completed Vaccine 00:00:00 Moderna COVID-19 2021-02-19 Completed Vaccine 00:00:00 Moderna COVID-19 2021-02-19 Completed Vaccine 00:00:00 Moderna COVID-19 2021-02-19 Completed Vaccine 00:00:00 Moderna COVID-19 2021-02-19 Completed Vaccine 00:00:00 Moderna COVID-19 2020-08-01 Completed Vaccine 00:00:00 Moderna COVID-19 2020-08-01 Completed Vaccine 00:00:00 Padminia COVID-19 2020-08-01 Completed Vaccine 00:00:00 Moderna COVID-19 2020-08-01 Completed Vaccine 00:00:00 Moderna COVID-19 2020-08-01 Completed Vaccine 00:00:00 Moderna COVID-19 2020-07-06 Completed Vaccine 00:00:00 Moderna COVID-19 2020-07-06 Completed Vaccine 00:00:00 Moderna COVID-19 2020-07-06 Completed Vaccine 00:00:00 Moderna COVID-19 2020-07-06 Completed Vaccine 00:00:00 Moderna COVID-19 2020-07-06 Completed Vaccine 00:00:00 Pneumococcal 2018-03-07 Completed [facility] [place] [facility] PPSV23 (PNEUMOVAX) [facility] Pneumococcal 2018-03-07 Completed [facility], [facility]00 [place] [facility] PPSV23 (PNEUMOVAX) Branch Vital Signs Vital Name Observation Time Observation Value Comments Source HEIGHT 2019-11-07 00:00:00 162.6 cm WEIGHT 2019-11-07 00:00:00 76.4 kg Systolic blood 2021-12-02 19:06:00 116 mm[Hg] Univer sity of pressure [facility] Diastolic blood 2021-12-02 19:06:00 68 mm[Hg] Unive rsity of pressure [facility] Heart rate 2021-12-02 19:06:00 69 /min [facility] Body height 2021-12-02 19:06:00 162.6 cm [facility] Body weight 2021-12-02 19:06:00 78.019 kg [facility] BMI 2021-12-02 19:06:00 29.52 kg/m2 [facility] Oxygen saturation in 2021-12-02 19:06:00 95 /min [facility] Arterial blood by [facility] Pulse oximetry Branch HEIGHT 2019-11-07 00:00:00 162.6 cm WEIGHT 2019-11-07 00:00:00 76.4 kg HEIGHT 2019-12-14 00:00:00 162.6 cm WEIGHT 2019-12-14 00:00:00 79.379 kg HEIGHT 2019-12-14 00:00:00 162.6 cm WEIGHT 2019-12-14 00:00:00 79.379 kg BP Systolic 2022-03-04 14:03:00 176 mm[Hg] BP Diastolic 2022-03-04 14:03:00 83 mm[Hg] Weight Measured 2022-03-04 14:03:00 174.80 pounds Height Measured 2022-03-04 14:03:00 63.00 inches Body Temperature 2022-03-04 14:03:00 98.20 degrees Heart Rate 2022-03-04 14:03:00 70.00 /min Respiratory Rate 2022-03-04 14:03:00 BP Systolic 2022-02-17 14:14:00 168 mm[Hg] BP Diastolic 2022-02-17 14:14:00 79 mm[Hg] Weight Measured 2022-02-17 14:14:00 177.00 pounds Height Measured 2022-02-17 14:14:00 63.30 inches Body Temperature 2022-02-17 14:14:00 98.20 degrees Heart Rate 2022-02-17 14:14:00 67.00 /min Respiratory Rate 2022-02-17 14:14:00 BP Systolic 2022-02-03 13:49:00 155 mm[Hg] BP Diastolic 2022-02-03 13:49:00 73 mm[Hg] Weight Measured 2022-02-03 13:49:00 175.20 pounds Height Measured 2022-02-03 13:49:00 63.30 inches Body Temperature 2022-02-03 13:49:00 97.80 degrees Heart Rate 2022-02-03 13:49:00 69.00 /min Respiratory Rate 2022-02-03 13:49:00 16.00 /min BP Systolic 2021-12-04 16:11:00 125 mm[Hg] BP [...] 2022-07-[address] [facility] 00:00:00 (procedure) [code = [facility] [id number]] Future Scheduled 2022-07-[address] [facility] 00:00:00 (procedure) [code = [facility] [id number]] Future Scheduled 2022-07-[address] [facility] 00:00:00 (procedure) [code = [facility] [id number]] Future Scheduled 2022-07-[address] [facility] 00:00:00 (procedure) [code = [facility] [id number]] Future Scheduled 2022-03-04 HEPATITIS B VACCINES Met [facility] Test 13:56:11 (1 of 3 - 3-dose series) [code = HEPATITIS B VACCINES (1 of 3 - 3-dose series)] Future Scheduled 2022-03-04 COVID-19 VACCINE (#1) [facility] Test 13:56:11 [code = COVID-19 VACCINE (#1)] Future Scheduled 2022-03-[address] [facility] Test 13:56:11 [code = COLONOSCOPY SCREENING] Future Scheduled 2022-03-04 SHINGLES VACCINES (1 Met [facility] Test 13:56:11 of 2) [code = SHINGLES VACCINES (1 of 2)] Future Scheduled 2022-03-04 INFLUENZA VACCINE Method [facility] Test 13:56:11 [code = INFLUENZA VACCINE] Future Scheduled 2022-03-04 HEPATITIS B VACCINES Met [facility] Test 13:56:11 (1 of 3 - 3-dose series) [code = HEPATITIS B VACCINES (1 of 3 - 3-dose series)] Future Scheduled 2022-03-04 COVID-19 VACCINE (#1) [facility] Test 13:56:11 [code = COVID-19 VACCINE (#1)] Future Scheduled 2022-03-[address] [facility] Test 13:56:11 [code = COLONOSCOPY SCREENING] Future Scheduled 2022-03-04 SHINGLES VACCINES (1 Met [facility] Test 13:56:11 of 2) [code = SHINGLES VACCINES (1 of 2)] Future Scheduled 2022-03-04 INFLUENZA VACCINE Method [facility] Test 13:56:11 [code = INFLUENZA VACCINE] Future Scheduled 2022-02-08 HEPATITIS B VACCINES Met [facility] Test 14:31:50 (1 of 3 - 3-dose series) [code = HEPATITIS B VACCINES (1 of 3 - 3-dose series)] Future Scheduled 2022-02-08 COVID-19 VACCINE (#1) [facility] Test 14:31:50 [code = COVID-19 VACCINE (#1)] Future Scheduled 2022-02-[address] [facility] Test 14:31:50 [code = COLONOSCOPY SCREENING] Future Scheduled 2022-02-08 SHINGLES VACCINES (1 Met [facility] Test 14:31:50 of 2) [code = SHINGLES VACCINES (1 of 2)] Future Scheduled 2022-02-08 INFLUENZA VACCINE Method [facility] Test 14:31:50 [code = INFLUENZA VACCINE] Future Scheduled 2022-01-03 HEPATITIS B VACCINES Met [facility] Test 04:21:26 (1 of 3 - 3-dose series) [code = HEPATITIS B VACCINES (1 of 3 - 3-dose series)] Future Scheduled 2022-01-03 COVID-19 VACCINE (#1) [facility] Test 04:21:26 [code = COVID-19 VACCINE (#1)] Future Scheduled 2022-01-03 Pneumococcal Vaccine: [facility] Test 04:21:26 Pediatrics (0 to 5 Years) and At-Risk Patients (6 to 64 Years) (1 - PCV) [code = Pneumococcal Vaccine: Pediatrics (0 to 5 Years) and At-Risk Patients (6 to 64 Years) (1 - PCV)] Future Scheduled 2022-01-03 Hepatitis C screening [facility] Test 04:21:26 (procedure) [code = [id number]] Future Scheduled 2022-01-03 SHINGLES VACCINES (1 Met [facility] Test 04:21:26 of 2) [code = SHINGLES VACCINES (1 of 2)] Future Scheduled 2022-01-[address] [facility] Test 04:21:26 [code = COLONOSCOPY SCREENING] Future Scheduled 2022-01-03 INFLUENZA VACCINE Method [facility] Test 04:21:26 [code = INFLUENZA VACCINE] Future Scheduled 2022-01-01 INFLUENZA VACCINE (#1) [facility] [code = INFLUENZA Medical Ce nter VACCINE (#1)] Future Scheduled 2022-01-01 INFLUENZA VACCINE (#1) [facility] 00:00:00 [code = INFLUENZA Medical Ce nter VACCINE (#1)] Future Scheduled 2022-01-01 INFLUENZA VACCINE (#1) [facility] 00:00:00 [code = INFLUENZA Medical Ce nter VACCINE (#1)] Future Scheduled 2022-01-01 INFLUENZA VACCINE (#1) [facility] 00:00:00 [code = INFLUENZA Medical Ce nter VACCINE (#1)] Future Scheduled 2021-12-27 HEPATITIS B VACCINES Met [facility] Test 10:00:17 (1 of 3 - 3-dose series) [code = HEPATITIS B VACCINES (1 of 3 - 3-dose series)] Future Scheduled 2021-12-27 COVID-19 VACCINE (#1) [facility] Test 10:00:17 [code = COVID-19 VACCINE (#1)] Future Scheduled 2021-12-27 Pneumococcal Vaccine: [facility] Test 10:00:17 Pediatrics (0 to 5 Years) and At-Risk Patients (6 to 64 Years) (1 - PCV) [code = Pneumococcal Vaccine: Pediatrics (0 to 5 Years) and At-Risk Patients (6 to 64 Years) (1 - PCV)] Future Scheduled 2021-12-27 Hepatitis C screening [facility] Test 10:00:17 (procedure) [code = [id number]] Future Scheduled 2021-12-27 SHINGLES VACCINES (1 Met [facility] Test 10:00:17 of 2) [code = SHINGLES VACCINES (1 of 2)] Future Scheduled 2021-12-27 COLONOSCOPY SCREENING Me [facility] Test 10:00:17 [code = COLONOSCOPY SCREENING] Future Scheduled 2021-12-27 INFLUENZA VACCINE [facility] Test 10:00:17 [code = INFLUENZA VACCINE] Future Scheduled 2021-05-[address] [facility] 00:00:00 (12+) [code = Medical Center DEPRESSION SCREENING (12+)] Future Scheduled 2021-05-[address] [facility] Test 00:00:00 (12+) [code = Medical Center DEPRESSION SCREENING (12+)] Future Scheduled 2021-05-[address] [facility] 00:00:00 (12+) [code = Medical Center DEPRESSION SCREENING (12+)] Future Scheduled 2021-05-[address] [facility] 00:00:00 (12+) [code = Medical Center DEPRESSION SCREENING (12+)] Future Scheduled 2020-01-[address] [facility] measurement Medical Center (procedure) [code = [id number]] Future Scheduled 2020-01-[address] [facility] 00:[facility]:00 measurement Medical Center (procedure) [code = 20431069] Future Scheduled 2020-01-[address] [facility] 00:[facility]:00 measurement Medical Center (procedure) [code = 03209045] Future Scheduled 2020-01-[address] [facility] 00:[facility]:00 measurement Medical Center (procedure) [code = 47823579] Future Scheduled 2019-11-[address] [facility] 00:00:00 WELLNESS (YEAR 2 or Medical Center FIRST YEAR if no IPPE) [code = MEDICARE ANNUAL WELLNESS (YEAR 2 or FIRST YEAR if no IPPE)] Future Scheduled 2019-11-[address] [facility] 00:00:00 WELLNESS (YEAR 2 or Medical Center FIRST YEAR if no IPPE) [code = MEDICARE ANNUAL WELLNESS (YEAR 2 or FIRST YEAR if no IPPE)] Future Scheduled 2019-11-[address] [facility] 00:00:00 WELLNESS (YEAR 2 or Medical Center FIRST YEAR if no IPPE) [code = MEDICARE ANNUAL WELLNESS (YEAR 2 or FIRST YEAR if no IPPE)] Future Scheduled 2019-11-[address] [facility] 00:00:00 WELLNESS (YEAR 2 or Medical Center FIRST YEAR if no IPPE) [code = MEDICARE ANNUAL WELLNESS (YEAR 2 or FIRST YEAR if no IPPE)] Future Scheduled 2019-03-[address] [facility] 00:00:00 0-64 YRS (2 - PCV) Medical C enter [code = PNEUMOCOCCAL VACCINE 0-64 YRS (2 - PCV)] Future Scheduled 2019-03-[address] [facility] Test 00:00:00 0-64 YRS (2 - PCV) Medical C enter [code = PNEUMOCOCCAL VACCINE 0-64 YRS (2 - PCV)] Future Scheduled 2019-03-[address] [facility] 00:00:00 0-64 YRS (2 - PCV) Medical C enter [code = PNEUMOCOCCAL VACCINE 0-64 YRS (2 - PCV)] Future Scheduled 2019-03-[address] [facility] 00:00:00 0-64 YRS (2 - PCV) Medical C enter [code = PNEUMOCOCCAL VACCINE 0-64 YRS (2 - PCV)] Future Scheduled 2015 SHINGLES VACCINES ([address] [facility] 00:00:00 of 2) [code = SHINGLES Medic al Center VACCINES (1 of 2)] Future Scheduled 2015 SHINGLES VACCINES ([address] [facility] 00:00:00 of 2) [code = SHINGLES Medic al Center VACCINES (1 of 2)] Future Scheduled 2015 SHINGLES VACCINES ([address] [facility] 00:00:00 of 2) [code = SHINGLES Medic al Center VACCINES (1 of 2)] Future Scheduled 2015 SHINGLES VACCINES ([address] [facility] 00:00:00 of 2) [code = SHINGLES Medic al Center VACCINES (1 of 2)] Future Scheduled 1984 DTAP/TDAP/TD [facility]INES [facility]:00:00 (1 - Tdap) [code = Medical C enter DTAP/TDAP/TD VACCINES (1 - Tdap)] Future Scheduled 1984 DTAP/TDAP/TD [facility]ACCINES [facility] 00:00:00 (1 - Tdap) [code = Medical C enter DTAP/TDAP/TD VACCINES (1 - Tdap)] Future Scheduled 1984 DTAP/TDAP/TD [facility]ACCINES [facility] 00:00:00 (1 - Tdap) [code = Medical C enter DTAP/TDAP/TD VACCINES (1 - Tdap)] Future Scheduled 1984 DTAP/TDAP/TD [facility]ACCINES [facility] 00:00:00 (1 - Tdap) [code = Medical C enter DTAP/TDAP/TD VACCINES (1 - Tdap)] Future Scheduled [address]YE EXAM [facility] 00:00:00 [code = DIABETIC EYE Medical Center EXAM] Future Scheduled [address] [facility] examination Medical Center (regime/therapy) [code = [id number]] Future Scheduled 1975 Urine screening for [facility] 00:00:00 protein (procedure) Medical Center [code = 189507385] Future Scheduled [address]YE EXAM [facility] 00:00:00 [code = DIABETIC EYE Medical Center EXAM] Future Scheduled [address] [facility] 00:[facility]:00 examination Medical Center (regime/therapy) [code = 503732345] Future Scheduled 1975 Urine screening for [facility] 00:00:00 protein (procedure) Medical Center [code = 095669130] Future Scheduled [address] EYE EXAM [facility] 00:00:00 [code = DIABETIC EYE Medical Center EXAM] Future Scheduled [address] [facility] 00:00:00 examination Medical Center (regime/therapy) [code = 449181733] Future Scheduled 1975 Urine screening for [facility] 00:00:00 protein (procedure) Medical Center [code = 704328083] Future Scheduled [address] EYE EXAM [facility] 00:00:00 [code = DIABETIC EYE Medical Center EXAM] Future Scheduled [address] [facility] 00:00:00 examination Medical Center (regime/therapy) [code = 957999784] Future Scheduled 1975 Urine screening for [facility] 00:00:00 protein (procedure) Medical Center [code = 508091807] Future Scheduled 1965 COVID-19 VACCINE (#1[facility]:00 [code = COVID-[address] VACCINE (#1)] Future Scheduled 1965 COVID-19 VACCINE (#1) [facility]:00:00 [code = COVID-[address] VACCINE (#1)] Future Scheduled 1965 COVID-19 VACCINE (#1) [facility] 00:00:00 [code = COVID-[address] VACCINE (#1)] Future Scheduled 1965 COVID-19 VACCINE (#1) [facility] 00:00:00 [code = COVID-[address] VACCINE (#1)] Future Scheduled [address] [facility] 00:00:00 (combo) [code = CT Medical C enter Colonography (combo)] Future Scheduled [address] [facility] 00:00:00 malignant neoplasm of [facility]ica [facility] Center colon (procedure) [code = 585986425] Future Scheduled [address] [facility] 00:00:00 malignant neoplasm of [facility] Center colon (procedure) [code = 051607676] Future Scheduled [address] [facility] 00:00:00 malignant neoplasm of [facility] Center colon (procedure) [code = 856783945] Future Scheduled [address] [facility] 00:00:00 malignant neoplasm of [facility]ica [facility] Center colon (procedure) [code = 289093420] Future Scheduled 1965 Sigmoidoscopy [facility]] Medical Cent[facility] r Future Scheduled [address] [facility] 00:00:00 (combo) [code = CT Medical C enter Colonography (combo)] Future Scheduled [address] [facility] 00:00:00 malignant neoplasm of [facility] Center colon (procedure) [code = 180824686] Future Scheduled [address] [facility] 00:00:00 malignant neoplasm of [facility] Center colon (procedure) [code = 009660262] Future Scheduled [address] [facility] 00:00:00 malignant neoplasm of [facility] Center colon (procedure) [code = 054143305] Future Scheduled [address] [facility] 00:00:00 malignant neoplasm of [facility] Center colon (procedure) [code = 644665969] Future Scheduled 1965 Sigmoidoscopy [facility]] [facility] Cent[facility] r Future Scheduled [address] [facility] 00:00:00 (combo) [code = CT Medical C enter Colonography (combo)] Future Scheduled [address] [facility] 00:00:00 malignant neoplasm of [facility] Center colon (procedure) [code = 041517784] Future Scheduled [address] [facility] 00:00:00 malignant neoplasm of [facility] Center colon (procedure) [code = 341595420] Future Scheduled [address] [facility] 00:00:00 malignant neoplasm of [facility] Center colon (procedure) [code = 161495854] Future Scheduled [address] [facility] 00:00:00 malignant neoplasm of [facility] Center colon (procedure) [code = 610839582] Future Scheduled 1965 Sigmoidoscopy [facility] S[facility]] Medical Cent[facility] r Future Scheduled [address] [facility] 00:00:00 (combo) [code = CT Medical C enter Colonography (combo)] Future Scheduled [address] [facility] 00:00:00 malignant neoplasm of [facility] Center colon (procedure) [code = 678770525] Future Scheduled [address] [facility] 00:00:00 malignant neoplasm of [facility] Center colon (procedure) [code = 012094996] Future Scheduled [address] [facility] 00:00:00 malignant neoplasm of [facility]ica [facility] Center colon (procedure) [code = 658527420] Future Scheduled [address] [facility] [code = 347650974] Future Scheduled 1965 Sigmoidoscopy [facility]code [facility] S[facility]] Medical Rafal nguyen Goal Plan of Care Note [code = 48674-1] Goal Plan of Care Note [code = 41422-7] Goal Plan of Care Note [code = 18338-8] Goal Plan of Care Note [code = 79372-4] Goal Plan of Care Note [code = 36663-3] Goal Plan of Care Note [code = 31482-1] Goal Plan of Care Note [code = 67330-8] Goal Plan of Care Note [code = 36799-5] Goal Plan of Care Note [code = 51730-8] Goal Plan of Care Note [code = 57610-0] Goal Plan of Care Note [code = 73347-8] Goal Plan of Care Note [code = 34342-0] Goal Plan of Care Note [code = 67701-6] Goal Plan of Care Note [code = 41182-9] Goal Plan of Care Note [code = 37653-3] Goal Plan of Care Note [code = 36979-0] Goal Plan of Care Note [code = 28152-0] Goal Plan of Care Note [code = 05983-8] Goal Plan of Care Note [code = 65737-1] Goal Plan of Care Note [code = 57311-9] Goal Plan of Care Note [code = 00576-1] Goal Plan of Care Note [code = 04256-8] Goal Plan of Care Note [code = 61337-9] Goal Plan of Care Note [code = 80187-5] Goal Plan of Care Note [code = 46727-7] Goal Plan of Care Note [code = 12290-3] Goal Plan of Care Note [code = 39367-1] Goal Plan of Care Note [code = 82477-3] Goal Plan of Care Note [code = 60109-8] Goal Plan of Care Note [code = 48680-4] Goal Plan of Care Note [code = 66384-7] Goal Plan of Care Note [code = 73572-7] Goal Plan of Care Note [code = 62884-2] Goal Plan of Care Note [code = 70456-3] Goal Plan of Care Note [code = 44728-3] Goal Plan of Care Note [code = 08679-7] Goal Plan of Care Note [code = 97737-8] Goal Plan of Care Note [code = 74002-4] Goal Plan of Care Note [code = 06558-9] Goal Plan of Care Note [code = 82642-8] Goal Plan of Care Note [code = 69861-1] Goal Plan of Care Note [code = 17059-0] Goal Plan of Care Note [code = 94103-6] Goal Plan of Care Note [code = 57450-3] Goal Plan of Care Note [code = 74526-7] Goal Plan of Care Note [code = 78892-8] Goal Plan of Care Note [code = 61974-6] Goal Plan of Care Note [code = 62206-1] Goal Plan of Care Note [code = 77006-7] Goal Plan of Care Note [code = 06954-8] Goal Plan of Care Note [code = 78150-5] Goal Plan of Care Note [code = 62632-6] Goal Plan of Care Note [code = 29595-5] Goal Plan of Care Note [code = 38728-1] Goal Plan of Care Note [code = 48699-0] Goal Plan of Care Note [code = 14912-5] Goal Plan of Care Note [code = 43883-3] Goal Plan of Care Note [code = 69511-7] Goal Plan of Care Note [code = 74354-4] Goal Plan of Care Note [code = 46694-4] Goal Plan of Care Note [code = 51017-2] Goal Plan of Care Note [code = 22069-2] Goal Plan of Care Note [code = 95079-3] Goal Plan of Care Note [code = 55768-8] Goal Plan of Care Note [code = 95410-0] Goal Plan of Care Note [code = 51677-7] Goal Plan of Care Note [code = 14288-6] Goal Plan of Care Note [code = 38156-7] Goal Plan of Care Note [code = 34217-8] Goal Plan of Care Note [code = 42709-4] Goal Plan of Care Note [code = 39443-6] Goal Plan of Care Note [code = 46700-8] Goal Plan of Care Note [code = 95374-9] Goal Plan of Care Note [code = 07343-8] Goal Plan of Care Note [code = 71070-0] Goal Plan of Care Note [code = 83860-3] Goal Plan of Care Note [code = 66386-8] Goal Plan of Care Note [code = 43273-6] Goal Plan of Care Note [code = 86222-4] Goal Plan of Care Note [code = 58510-2] Goal Plan of Care Note [code = 51112-9] Goal Plan of Care Note [code = 56128-8] Goal Plan of Care Note [code = 59683-4] Goal Plan of Care Note [code = 70010-0] Goal Plan of Care Note [code = 50410-0] Goal Plan of Care Note [code = 33962-5] Goal Plan of Care Note [code = 15905-7] Goal Plan of Care Note [code = 87443-1] Goal Plan of Care Note [code = 12103-3] Goal Plan of Care Note [code = 83820-7] Goal Plan of Care Note [code = 94776-9] Goal Plan of Care Note [code = 72779-8] Goal Plan of Care Note [code = 01984-0] Goal Plan of Care Note [code = 90970-6] Goal Plan of Care Note [code = 47490-2] Goal Plan of Care Note [code = 15119-3] Goal Plan of Care Note [code = 57695-1] Goal Plan of Care Note [code = 56879-7] Goal Plan of Care Note [code = 68982-0] Goal Plan of Care Note [code = 95014-0] Goal Plan of Care Note [code = 84194-8] Goal Plan of Care Note [code = 23967-4] Goal Plan of Care Note [code = 33743-4] Goal Plan of Care Note [code = 57547-5] Goal Plan of Care Note [code = 60132-6] Goal Plan of Care Note [code = 18939-7] Goal Plan of Care Note [code = 44556-2] Goal Plan of Care Note [code = 27838-8] Goal Plan of Care Note [code = 20628-5] Goal Plan of Care Note [code = 57033-9] Goal Plan of Care Note [code = 38162-8] Goal Plan of Care Note [code = 63293-4] Goal Plan of Care Note [code = 02838-4] Goal Plan of Care Note [code = 39244-1] Goal Plan of Care Note [code = 69921-7] Goal Plan of Care Note [code = 67207-1] Goal Plan of Care Note [code = 08107-0] Goal Plan of Care Note [code = 20053-0] Goal Plan of Care Note [code = 53807-3] Goal Plan of Care Note [code = 49116-4] Goal Plan of Care Note [code = 40894-4] Goal Plan of Care Note [code = 17680-8] Goal Plan of Care Note [code = 37102-7] Goal Plan of Care Note [code = 31305-8] Goal Plan of Care Note [code = 04100-9] Goal Plan of Care Note [code = 37297-5] Goal Plan of Care Note [code = 14750-6] Goal Plan of Care Note [code = 34818-0] Goal Plan of Care Note [code = 24909-6] Goal Plan of Care Note [code = 47039-8] Goal Plan of Care Note [code = 44213-6] Goal Plan of Care Note [code = 84666-4] Goal Plan of Care Note [code = 66227-3] Goal Plan of Care Note [code = 62560-2] Goal Plan of Care Note [code = 48488-1] Goal Plan of Care Note [code = 52195-0] Goal Plan of Care Note [code = 19930-9] Goal Plan of Care Note [code = 52800-5] Goal Plan of Care Note [code = 52665-0] Goal Plan of Care Note [code = 09471-5] Goal Plan of Care Note [code = 85164-0] Goal Plan of Care Note [code = 43594-5] Goal Plan of Care Note [code = 65017-2] Goal Plan of Care Note [code = 51224-4] Goal Plan of Care Note [code = 82763-1] Goal Plan of Care Note [code = 90676-9] Goal Plan of Care Note [code = 06856-4] Goal Plan of Care Note [code = 57689-1] Goal Plan of Care Note [code = 32853-5] Goal Plan of Care Note [code = 53879-9] Goal Plan of Care Note [code = 53876-7] Goal Plan of Care Note [code = 79739-2] Goal Plan of Care Note [code = 38736-9] Goal Plan of Care Note [code = 29187-4] Goal Plan of Care Note [code = 93917-3] Goal Plan of Care Note [code = 28310-7] Goal Plan of Care Note [code = 86317-4] Goal Plan of Care Note [code = 99960-3] Goal Plan of Care Note [code = 73338-5] Goal Plan of Care Note [code = 23202-1] Goal Plan of Care Note [code = 96037-5] Goal Plan of Care Note [code = 19069-8] Goal Plan of Care Note [code = 33992-1] Goal Plan of Care Note [code = 63018-0] Goal Plan of Care Note [code = 05800-1] Goal Plan of Care Note [code = 47457-3] Goal Plan of Care Note [code = 62075-5] Goal Plan of Care Note [code = 49210-8] Goal Plan of Care Note [code = 31879-9] Goal Plan of Care Note [code = 40647-4] Goal Plan of Care Note [code = 69747-7] Goal Plan of Care Note [code = 32115-9] Goal Plan of Care Note [code = 99559-3] Goal Plan of Care Note [code = 26727-2] Goal Plan of Care Note [code = 34317-6] Goal Plan of Care Note [code = 17747-0] Goal Plan of Care Note [code = 75861-5] Goal Plan of Care Note [code = 35628-1] Goal Plan of Care Note [code = 80747-8] Goal Plan of Care Note [code = 43220-6] Goal Plan of Care Note [code = 73556-9] Goal Plan of Care Note [code = 34428-0] Goal Plan of Care Note [code = 54271-1] Goal Plan of Care Note [code = 89045-1] Goal Plan of Care Note [code = 21104-4] Goal Plan of Care Note [code = 16225-1] Goal Plan of Care Note [code = 53615-5] Goal Plan of Care Note [code = 96460-2] Goal Plan of Care Note [code = 57395-3] Goal Plan of Care Note [code = 90257-8] Goal Plan of Care Note [code = 17193-7] Goal Plan of Care Note [code = 64593-6] Goal Plan of Care Note [code = 09114-7] Goal Plan of Care Note [code = 79929-3] Goal Plan of Care Note [code = 19594-7] Goal Plan of Care Note [code = 54866-9] Goal Plan of Care Note [code = 67495-3] Goal Plan of Care Note [code = 80649-9] Goal Plan of Care Note [code = 89070-0] Goal Plan of Care Note [code = 57299-2] Goal Plan of Care Note [code = 42947-6] Goal Plan of Care Note [code = 51014-3] Goal Plan of Care Note [code = 84809-0] Goal Plan of Care Note [code = 12928-6] Goal Plan of Care Note [code = 44048-5] Goal Plan of Care Note [code = 39436-2] Goal Plan of Care Note [code = 85026-5] Goal Plan of Care Note [code = 46369-1] Goal Plan of Care Note [code = 05451-0] Goal Plan of Care Note [code = 49486-7] Goal Plan of Care Note [code = 26859-1] Goal Plan of Care Note [code = 82768-4] Goal Plan of Care Note [code = 28154-4] Goal Plan of Care Note [code = 98151-0] Goal Plan of Care Note [code = 93030-7] Goal Plan of Care Note [code = 59732-2] Goal Plan of Care Note [code = 47100-6] Goal Plan of Care Note [code = 45766-1] Goal Plan of Care Note [code = 64599-2] Goal Plan of Care Note [code = 83161-2] Goal Plan of Care Note [code = 28206-4] Goal Plan of Care Note [code = 96497-3] Goal Plan of Care Note [code = 07544-2] Goal Plan of Care Note [code = 42620-0] Goal Plan of Care Note [code = 11131-9] Goal Plan of Care Note [code = 58320-8] Encounters Start End Encounter Admission Attending Care Care Encounter Source Date/Time Date/Time Type Type Clinicians Facility Department ID 2021-02-05 Outpatient BHARAT, [facility] Surgery [id number] SLE 05:27:44 IRMA 2021-02-04 Outpatient ELISE, [facility] Surgery [id number] [facility] 23:01:57 MAHBOOB 2022-06-09 2022-06-09 Outpatient Rayne FERNANDEZ [facility] [id number] [facility] 13:30:00 13:30:00 JOSELUIS [facility] 2022-03-17 2022-03-17 Outpatient SFA SFA [id number] [place] 09:09:19 09:09:19 [address] 2022-03-04 2022-03-04 Outpatient SFA SFA [id number] 022 [place] 13:56:07 13:56:07 1102 F Martínez 2022-03-04 2022-03-04 Outpatient [id number] 00:00:00 00:00:00 Visit 9529-42f7 529-42f7-a -pj93-ac6 x34-yx886v 00y7qg2g2 5cb7c5 2022-02-24 2022-02-24 Abstract Eufemia [facility] [id number] 00:00:00 00:00:00 [facility] 2022-02-24 2022-02-24 Abstract Eufemia [facility] [id number] 00:00:00 00:00:00 [facility] 2022-02-17 2022-02-17 Outpatient SFA CASS [id number] 022 [place] 14:09:24 14:09:24 1018 F Martínez 2022-02-17 2022-02-17 Outpatient [id number]- [id number] px000o-b 00:00:00 00:00:00 Visit c32x-09h9 39e-47c5-b -b7a6-3wl 0z9-2vpr7o [id number] 0880-10-04 2022-02-03 Outpatient SFA SFA [id number] 022 [place] 13:41:10 13:41:10 1004 F Martínez 2022-02-03 2022-02-03 Outpatient [id number] 00:00:00 00:00:00 Visit 4378-45d4 378-45d4-b -zm5j-674 c7u-5143b4 9d27772sf 0427fc 2021-12-23 2021-12-23 [facility] [id number] [facility] 00:00:00 00:00:00 Formerly [facility] [id number] it y of [place] 4.2.7.2.686 Tony as CAR?BLEA [id number] [address] OFFICE [facility] 2021-12-04 2021-12-04 Outpatient [id number] [id number] 00:00:00 00:00:00 Visit 67r2-6k38 8r0-0j72-1 -62d4-g7t 8v8-l5cbw4 ye1147t21 255c45 2021-12-02 2021-12-02 [facility] [id number] [facility] 16:00:00 16:00:00 [facility] 2021-12-02 2021-12-02 [facility], Gen Viramontes [facility] 1.2.840.1 [id number] Univers 15:15:00 15:16:31 Visit [facility] [id number] ity of [place] 4.2.7.2.686 Tony as CAR?BLEA [id number] [facility] [address] [facility] OFFICE [facility] 2021-12-02 2021-12-02 [facility] [id number] Univers 14:30:00 14:57:05 [facility] 2021-12-02 2021-12-02 [facility] 1.2.840.114 [id number] Univers 14:30:00 14:57:05 Visit [facility] [id number] it y of [place] 4.2.7.2.686 Tony as CAR?BLEA [id number] [address] OFFICE [facility] 2021-12-02 2021-12-02 Outpatient [id number] 00:00:00 00:00:00 Visit 9gx9-6378 db2-4873-a -g7h0-659 3s9-5931d5 5j77q53v9 1f79f2 2021-11-26 2021-11-26 Outpatient R [facility] [id number] Univers 14:00:00 14:00:00 [facility] 2021-10-21 2021-10-21 [facility] [id number] [facility] 14:30:00 14:30:00 [facility] 2021-07-29 2021-07-29 [facility]phone [facility] [id number] [facility] 00:00:00 00:00:00 [facility] [employer] [id number] it y of [place] 4.2.7.2.686 Tony as CAR?BLEA [id number] [address] OFFICE [facility] 2021-07-15 2021-07-15 Outpatient R [facility] [id number] Univers 09:30:00 10:12:40 [facility] 2021-07-15 2021-07-15 Office [facility] 1.2.840.114 [id number] Univers 09:30:00 10:12:40 Visit [facility] [employer] [id number] it y of [place] 4.2.7.2.686 Tony as CAR?BLEA [id number] [address] MEDICAL OFFICE [facility] 2021-03-06 2021-03-06 Hospital Radiology [facility] 1.2.840.114 [id number] Univers 12:24:35 23:59:00 Encounter [place] [id number] ity of [place] 4.2.7.2.686 [facility] [id number] [address] 2021-03-06 2021-03-06 [facility] Radiology [facility] 1.2.840.114 [id number] Univers 12:23:40 12:23:40 Encounter [place] 350.1.13.10 ity [facility] 4.2.7.2.686 [facility] [id number] [facility] [address] 2021-03-06 2021-03-06 Outpatient R RADIOLOGY [facility] [id number] Univers 12:23:40 12:23:40 ity of [facility] 2021-03-06 2021-03-06 Outpatient R RADIOLOGY [facility] [id number] Univers 12:23:40 12:23:40 ity [facility] 2021-02-27 2021-02-27 Outpatient R RADIOLOGY [facility] [id number] Univers 00:00:00 00:00:00 ity [facility] 2021-02-27 2021-02-27 Outpatient R RADIOLOGY [facility] [id number] Univers 00:00:00 00:00:00 ity [facility] 2021-02-13 2021-02-13 Documentat Maikel [facility] [id number] [facility] 00:00:00 00:00:00 [facility] 2021-02-03 2021-02-03 Orders Doctor BRIANNE 1.2.840.114 [id number] Univers 00:00:00 00:00:00 Only UnassignedRONNY 350.1.13.[address] [facility] 4.2.7.2.686 [facility] [id number] [facility] [address] 2020-11-22 2020-11-22 [facility] [id number] Univers 13:00:00 13:00:00 SAM stewart [facility] 2020-10-08 2020-10-08 [facility] 1.2.840.114 [id number] 00:00:00 00:00:00 Sam Doherty 350.1.13.10 [place] 4.2.7.2.686 Profess [id number] 2020-10-07 2020-10-07 Orders Doctor BRIANNE 1.2.840.114 [id number] 00:00:00 00:00:00 Only [address]RONNY 350.1.13.10 [facility] 4.2.7.2.686 [id number] 2020-10-04 2020-10-04 Outpatient Rayne RAMIRES, [facility] [id number] Univers 14:00:00 14:00:00 SAM ajithdave [facility] 2020-09-19 2020-09-19 Outpatient R RADHA, [facility] [id number] Univers 11:00:00 11:00:00 DEAN cansecodave rebeca [facility] 2020-09-10 2020-09-10 Outpatient R RADHA, [facility] [id number] Univers 10:00:00 10:00:00 DEAN cansecodave rebeca [facility] 2020-08-20 2020-08-20 Office Radha, [facility] 1.2.840.114 [id number] 13:15:09 13:42:21 Visit Dean Doherty 350.1.13.10 [place] 4.2.7.2.686 Tania [id number] [facility] 2020-08-20 2020-08-20 Outpatient R RADHA, [facility] [id number] Univers 13:20:00 13:20:00 DEAN jose [facility] 2019-12-14 2019-12-14 Outpatient [facility] [id number] [facility] 00:00:00 00:00:00 2019-11-14 2019-11-14 Outpatient NAKITA GIPSON, [facility] [id number] [facility] 00:00:00 00:00:00 HUNTER 2019-11-14 2019-11-14 Outpatient [facility] [id number] [facility] 00:00:00 00:00:00 2019-11-14 2019-11-14 Outpatient EL [facility] [id number] [facility] 00:00:00 00:00:00 2019-10-31 2019-10-31 Outpatient [facility]H [facility] [id number] [facility] 00:00:00 00:00:00 2019-10-31 2019-10-31 Outpatient [facility] [id number] [facility] 00:00:00 00:00:00 2019-10-17 2019-10-17 Outpatient [facility] [id number] [facility] 00:00:00 00:00:00 2019-10-17 2019-10-17 Outpatient [facility] [id number] [facility] 00:00:00 00:00:00 2019-07-13 2019-07-13 Outpatient [facility] [id number] SLE 00:00:00 00:00:00 [id number] 2019-06-15 2019-06-15 Outpatient [facility] [id number] 2-2 SLE 00:00:00 00:00:00 [id number] Results Test Description Test Time Test Comments [...] PLATELET COUNT (test code = 332 K/UL 405-487 6562) ABSOLUTE NEUTROPHILS (test 7.46 K/UL 1.50-7.50 code [...] RBCS (test code 0.00 K/UL 0.00-0.11 = 30971) HEMOGLOBIN [id number] 09:27:39 Test Item Value Reference Range Interpretation Comments HEMOGLOBIN A1c (test code = 88456) 6.2 % 4.2-5.6 H TSH, THIRD [id number] 06:43:39 Test Item Value Reference Range Interpretation Comments TSH, THIRD GENERATION (test 82.000 UIU/ML 0.400-4.100 H code = 2821) HEPATITIS PANEL, [id number] 05:21:13 Test Item Value Reference Range Interpretation Comments HEPATITIS A IgM (test NON-REACTIVE NON-REACTIVE code = 75418) HEPATITIS B CORE IgM NON-REACTIVE NON-REACTIVE (test code = 4644) HEPATITIS B SURF AG NON-REACTIVE NON-REACTIVE (test code = 2739) HEPATITIS C ANTIBODY NON-REACTIVE NON-REACTIVE (test code = 4675) INTERPRETATION (NOTE) Hepatitis A HEPATITIS A: (test serology shows no code = 2552) evidence of acu te hepatitis A. INTERPRETATION (NOTE) Hepatitis B HEPATITIS B: (test serology shows no code = 42175) evidence of ac marty hepatitis B and no indication of exposure to hepatitis B vir us in the previous si xto eight months. INTERPRETATION (NOTE) Hepatitis C HEPATITIS C: (test serology shows no code = 14792) evidence of ex posure to hepatitisC v irus at this time. I t can take up to 12 m onths after exposure tothe hepatitis C vir us for antibodies to become detectab le in the blood in ce rtain patients. UNLES S OTHERWISE INDIC ATED, ALL TESTING PERFORMED [facility], [place] [facility] [address] [facility] DIRECTOR: LATOYA MCCALL M.D. CLIA NUMBER [id number] [place] [id number] HIV 1/2 4TH GEN, RFLX [id number] 05:21:13 Test Item Value Reference Range Interpretation Comments HIV 1/2 4TH GEN, RFLX CONF (test NON-REACTIVE NON-REACTIVE code = 3514) LIPID [id number] 03:30:59 Test Item Value Reference Range Interpretation [...] MOREINFORMATION , SEE CLIENT ANNOUNCE MENT AT [email or web address] CalcLDL-C RISK RATIO LDL/HDL (NOTE) RATIO <3.55 UNABLE TO CALCULATE (test code = 2238) COMPREHENSIVE METABOLIC [id number] 03:30:59 Test Item Value Reference Range Interpretation Comments GLUCOSE (test code = 117 MG/DL 70-99 H 2216) BUN (test code = 54 MG/DL 6-20 H 2207) CREATININE (test 11.27 MG/DL 0.80-1.40 H code = 2214) eGFR (2020 CKD-EPI) 5 ML/MIN/1.73 >60 L (test code = 90637) CALC BUN/CREAT (test 5 RATIO 6-28 L code = 2235) SODIUM (test code = 139 MEQ/L 632-315 8362) POTASSIUM (test code 4.2 MEQ/L 3.5-5.4 = [...] MG/DL See_Comment [Automated message] (test code = 220) The syste m which generated this result transmit kailey reference range : <=1.2. The refe rence range was not u sed to interpret th is result as normal/abnormal . ALKALINE PHOSPHATASE 70 U/L 40-123 (test code = 220) AST (test code = 6 U/L 9-50 L 2217) ALT (test code = 8 U/L 5-50 2218) COMPREHENSIVE METABOLIC [id number] 00:00:00 Test Item Value Reference Range Interpretation Comments GLUCOSE (test code = 2216) 117 MG/DL BUN (test code = 8) 54 MG/DL CREATININE (test code = 2214) 11.27 MG/DL eGFR (2020 CKD-EPI) (test code 5 ML/MIN/1.73 = 85527) CALC BUN/CREAT (test code = 5 RATIO [...] CALC GLOBULIN (test code = 3.2 G/DL 0) CALC A/G RATIO (test code = 1.7 RATIO 4) BILIRUBIN, TOTAL (test code = 0.3 MG/DL 2206) ALKALINE PHOSPHATASE (test code 70 U/L = 2204) AST (test code = 2218) 6 U/L ALT (test code = 2219) 8 U/L COMPREHENSIVE METABOLIC [id number] 00:00:00 Test Item Value Reference Range Interpretation Comments GLUCOSE (test code = 2217) 117 MG/DL BUN (test code = 2208) 54 MG/DL CREATININE (test code = 2214) 11.27 MG/DL eGFR (2020 CKD-EPI) (test code 5 ML/MIN/1.73 = 57313) CALC BUN/CREAT (test code = 5 RATIO 2235) SODIUM (test code = 2231) 139 MEQ/L POTASSIUM (test code = 2228) 4.2 MEQ/L CHLORIDE (test code = 2215) 95 MEQ/L CARBON DIOXIDE (test code = 23 MEQ/L 2205) CALCIUM (test code = 2209) 8.8 MG/DL PROTEIN, TOTAL (test code = 8.5 G/DL 2228) ALBUMIN (test code = 220) 5.3 G/DL CALC GLOBULIN (test code = 3.2 G/DL 2239) CALC A/G RATIO (test code = 1.7 RATIO 2233) BILIRUBIN, TOTAL (test code = 0.3 MG/DL 2206) ALKALINE PHOSPHATASE (test code 70 U/L = 2203) AST (test code = 2218) 6 U/L ALT (test code = 2219) 8 U/L [id number] 00:00:00 Test Item Value Reference Range Interpretation Comments TSH, THIRD GENERATION (test 82.000 UIU/ML code = 2821) [id number] 00:00:00 Test Item Value Reference Range Interpretation Comments TSH, THIRD GENERATION (test 82.000 UIU/ML code = 2821) [id number] 00:00:00 Test Item Value Reference Range Interpretation Comments TSH, THIRD GENERATION (test 82.000 UIU/ML code = 2821) HIV AB/AG COMBO RFLX [id number] 00:00:00 Test Item Value Reference Range Interpretation Comments HIV 1/2 4TH GEN, RFLX CONF (test NON-REACTIVE code = 3514) HIV AB/AG COMBO RFLX [id number] 00:00:00 Test Item Value Reference Range Interpretation Comments HIV 1/2 4TH GEN, RFLX CONF (test NON-REACTIVE code = 3514) ACUTE HEPATITIS [id number] 00:00:00 Test Item Value Reference Range Interpretation Comments HEPATITIS A IgM (test code = NON-REACTIVE 85079) HEPATITIS B CORE IgM (test code NON-REACTIVE = 4644) HEPATITIS B SURF AG (test code = NON-REACTIVE 2739) HEPATITIS C ANTIBODY (test code NON-REACTIVE = 4675) INTERPRETATION HEPATITIS A: (NOTE) (test code = 2552) INTERPRETATION HEPATITIS B: (NOTE) (test code = 37485) INTERPRETATION HEPATITIS C: (NOTE) (test code = 35076) ACUTE HEPATITIS [id number] 00:00:00 Test Item Value Reference Range Interpretation Comments HEPATITIS A IgM (test code = NON-REACTIVE 84972) HEPATITIS B CORE IgM (test code NON-REACTIVE = 4644) HEPATITIS B SURF AG (test code = NON-REACTIVE 2739) HEPATITIS C ANTIBODY (test code NON-REACTIVE = 4675) INTERPRETATION HEPATITIS A: (NOTE) (test code = 2552) INTERPRETATION HEPATITIS B: (NOTE) (test code = 59653) INTERPRETATION HEPATITIS C: (NOTE) (test code = 73737) CBC W/AUTO [id number] 00:00:00 Test Item Value Reference Range Interpretation [...] NUCLEATED RBCS (test code = 0.00 K/UL 70286) CBC W/AUTO [id number] 00:00:00 Test Item Value Reference Range Interpretation [...] NUCLEATED RBCS (test code = 0.00 K/UL 02415) CBC W/AUTO [id number] 00:00:00 Test Item Value Reference Range Interpretation [...] NUCLEATED RBCS (test code = 0.00 K/UL 07290) HEMOGLOBIN [id number] 00:00:00 Test Item Value Reference Range Interpretation Comments HEMOGLOBIN A1c (test code = 39056) 6.2 % HEMOGLOBIN [id number] 00:00:00 Test Item Value Reference Range Interpretation Comments HEMOGLOBIN A1c (test code = 06725) 6.2 % HEMOGLOBIN [id number] 00:00:00 Test Item Value Reference Range Interpretation Comments HEMOGLOBIN A1c (test code = 46413) 6.2 % LIPID [id number] 00:00:00 Test Item Value Reference Range Interpretation Comments CHOLESTEROL (test code = 2210) 196 MG/DL TRIGLYCERIDES (test code = 2232) 486 MG/DL HDL CHOLESTEROL (test code = 44 MG/DL 2220) CALC LDL CHOL (test code = 2237) (NOTE) MG/DL RISK RATIO LDL/HDL (test code = (NOTE) RATIO 2238) LIPID [id number] 00:00:00 Test Item Value Reference Range Interpretation Comments CHOLESTEROL (test code = 2210) 196 MG/DL TRIGLYCERIDES (test code = 2232) 486 MG/DL HDL CHOLESTEROL (test code = 44 MG/DL 2220) CALC LDL CHOL (test code = 2237) (NOTE) MG/DL RISK RATIO LDL/HDL (test code = (NOTE) RATIO 2238) COMPREHENSIVE METABOLIC [id number] 00:00:00 Test Item Value Reference Range Interpretation Comments GLUCOSE (test code = 2217) 117 MG/DL BUN (test code = 2208) 54 MG/DL CREATININE (test code = 2214) 11.27 MG/DL eGFR (2020 CKD-EPI) (test code 5 ML/MIN/1.73 = 07714) CALC BUN/CREAT (test code = 5 RATIO 2235) SODIUM (test code = 2231) 139 MEQ/L POTASSIUM (test code = 2228) 4.2 MEQ/L CHLORIDE (test code = 2215) 95 MEQ/L CARBON DIOXIDE (test code = 23 MEQ/L 2205) CALCIUM (test code = 2209) 8.8 MG/DL PROTEIN, TOTAL (test code = 8.5 G/DL 2228) ALBUMIN (test code = 2201) 5.3 G/DL CALC GLOBULIN (test code = 3.2 G/DL 0) CALC A/G RATIO (test code = 1.7 RATIO 2234) BILIRUBIN, TOTAL (test code = 0.3 MG/DL 2206) ALKALINE PHOSPHATASE (test code 70 U/L = 2203) AST (test code = 2218) 6 U/L ALT (test code = 2219) 8 U/L COMPREHENSIVE METABOLIC [id number] 00:00:00 Test Item Value Reference Range Interpretation Comments GLUCOSE (test code = 2217) 117 MG/DL BUN (test code = 2208) 54 MG/DL CREATININE (test code = 2214) 11.27 MG/DL eGFR (2020 CKD-EPI) (test code 5 ML/MIN/1.73 = 99223) CALC BUN/CREAT (test code = 5 RATIO 2235) SODIUM (test code = 2231) 139 MEQ/L [...] ALKALINE PHOSPHATASE (test code 70 U/L = 2204) AST (test code = 2218) 6 U/L ALT (test code = 2219) 8 U/L [id number] 00:00:00 Test Item Value Reference Range Interpretation Comments TSH, THIRD GENERATION (test 82.000 UIU/ML code = 2821) [id number] 00:00:00 Test Item Value Reference Range Interpretation Comments TSH, THIRD GENERATION (test 82.000 UIU/ML code = 2821) [id number] 00:00:00 Test Item Value Reference Range Interpretation Comments TSH, THIRD GENERATION (test 82.000 UIU/ML code = 2821) HIV AB/AG COMBO RFLX [id number] 00:00:00 Test Item Value Reference Range Interpretation Comments HIV 1/2 4TH GEN, RFLX CONF (test NON-REACTIVE code = 3514) HIV AB/AG COMBO RFLX [id number] 00:00:00 Test Item Value Reference Range Interpretation Comments HIV 1/2 4TH GEN, RFLX CONF (test NON-REACTIVE code = 3514) ACUTE HEPATITIS [id number] 00:00:00 Test Item Value Reference Range Interpretation Comments HEPATITIS A IgM (test code = NON-REACTIVE 08521) HEPATITIS B CORE IgM (test code NON-REACTIVE = 4644) HEPATITIS B SURF AG (test code = NON-REACTIVE 2739) HEPATITIS C ANTIBODY (test code NON-REACTIVE = 4675) INTERPRETATION HEPATITIS A: (NOTE) (test code = 2552) INTERPRETATION HEPATITIS B: (NOTE) (test code = 42038) INTERPRETATION HEPATITIS C: (NOTE) (test code = 45207) ACUTE HEPATITIS [id number] 00:00:00 Test Item Value Reference Range Interpretation Comments HEPATITIS A IgM (test code = NON-REACTIVE 44724) HEPATITIS B CORE IgM (test code NON-REACTIVE = 4644) HEPATITIS B SURF AG (test code = NON-REACTIVE 2739) HEPATITIS C ANTIBODY (test code NON-REACTIVE = 4675) INTERPRETATION HEPATITIS A: (NOTE) (test code = 2552) INTERPRETATION HEPATITIS B: (NOTE) (test code = 53675) INTERPRETATION HEPATITIS C: (NOTE) (test code = 46339) CBC W/AUTO [id number] 00:00:00 Test Item Value Reference Range Interpretation [...] NUCLEATED RBCS (test code = 0.00 K/UL 46428) CBC W/AUTO [id number] 00:00:00 Test Item Value Reference Range Interpretation [...] NUCLEATED RBCS (test code = 0.00 K/UL 71111) CBC W/AUTO [id number] 00:00:00 Test Item Value Reference Range Interpretation [...] NUCLEATED RBCS (test code = 0.00 K/UL 52612) HEMOGLOBIN [id number] 00:00:00 Test Item Value Reference Range Interpretation Comments HEMOGLOBIN A1c (test code = 08413) 6.2 % HEMOGLOBIN [id number] 00:00:00 Test Item Value Reference Range Interpretation Comments HEMOGLOBIN A1c (test code = 95627) 6.2 % HEMOGLOBIN [id number] 00:00:00 Test Item Value Reference Range Interpretation Comments HEMOGLOBIN A1c (test code = 00878) 6.2 % LIPID [id number] 00:00:00 Test Item Value Reference Range Interpretation Comments CHOLESTEROL (test code = 2210) 196 MG/DL TRIGLYCERIDES (test code = 2232) 486 MG/DL HDL CHOLESTEROL (test code = 44 MG/DL 2220) CALC LDL CHOL (test code = 2237) (NOTE) MG/DL RISK RATIO LDL/HDL (test code = (NOTE) RATIO 2238) LIPID [id number] 00:00:00 Test Item Value Reference Range Interpretation Comments CHOLESTEROL (test code = 2210) 196 MG/DL TRIGLYCERIDES (test code = 2232) 486 MG/DL HDL CHOLESTEROL (test code = 44 MG/DL 2220) CALC LDL CHOL (test code = 2237) (NOTE) MG/DL RISK RATIO LDL/HDL (test code = (NOTE) RATIO 2238) COMPREHENSIVE METABOLIC [id number] 00:00:00 Test Item Value Reference Range Interpretation Comments GLUCOSE (test code = 2217) 117 MG/DL BUN (test code = 2208) 54 MG/DL CREATININE (test code = 2214) 11.27 MG/DL eGFR (2020 CKD-EPI) (test code 5 ML/MIN/1.73 = 97521) CALC BUN/CREAT (test code = 5 RATIO 2235) SODIUM (test code = 2231) 139 MEQ/L POTASSIUM (test code = 2228) 4.2 MEQ/L CHLORIDE (test code = 2215) 95 MEQ/L CARBON DIOXIDE (test code = 23 MEQ/L 2205) CALCIUM (test code = 2209) 8.8 MG/DL PROTEIN, TOTAL (test code = 8.5 G/DL 2228) ALBUMIN (test code = 2201) 5.3 G/DL CALC GLOBULIN (test code = 3.2 G/DL 0) CALC A/G RATIO (test code = 1.7 RATIO 2234) BILIRUBIN, TOTAL (test code = 0.3 MG/DL 2206) ALKALINE PHOSPHATASE (test code 70 U/L = 2204) AST (test code = 2218) 6 U/L ALT (test code = 2219) 8 U/L COMPREHENSIVE METABOLIC [id number] 00:00:00 Test Item Value Reference Range Interpretation Comments GLUCOSE (test code = 2217) 117 MG/DL BUN (test code = 2208) 54 MG/DL CREATININE (test code = 2214) 11.27 MG/DL eGFR (2020 CKD-EPI) (test code 5 ML/MIN/1.73 = 06361) CALC BUN/CREAT (test code = 5 RATIO 2235) SODIUM (test code = 2231) 139 MEQ/L [...] ALKALINE PHOSPHATASE (test code 70 U/L = 2204) AST (test code = 2218) 6 U/L ALT (test code = 2219) 8 U/L [id number] 00:00:00 Test Item Value Reference Range Interpretation Comments TSH, THIRD GENERATION (test 82.000 UIU/ML code = 2821) [id number] 00:00:00 Test Item Value Reference Range Interpretation Comments TSH, THIRD GENERATION (test 82.000 UIU/ML code = 2821) [id number] 00:00:00 Test Item Value Reference Range Interpretation Comments TSH, THIRD GENERATION (test 82.000 UIU/ML code = 2821) HIV AB/AG COMBO RFLX [id number] 00:00:00 Test Item Value Reference Range Interpretation Comments HIV 1/2 4TH GEN, RFLX CONF (test NON-REACTIVE code = 3514) HIV AB/AG COMBO RFLX [id number] 00:00:00 Test Item Value Reference Range Interpretation Comments HIV 1/2 4TH GEN, RFLX CONF (test NON-REACTIVE code = 3514) ACUTE HEPATITIS [id number] 00:00:00 Test Item Value Reference Range Interpretation Comments HEPATITIS A IgM (test code = NON-REACTIVE 85082) HEPATITIS B CORE IgM (test code NON-REACTIVE = 4644) HEPATITIS B SURF AG (test code = NON-REACTIVE 2739) HEPATITIS C ANTIBODY (test code NON-REACTIVE = 4675) INTERPRETATION HEPATITIS A: (NOTE) (test code = 2552) INTERPRETATION HEPATITIS B: (NOTE) (test code = 81833) INTERPRETATION HEPATITIS C: (NOTE) (test code = 89635) ACUTE HEPATITIS [id number] 00:00:00 Test Item Value Reference Range Interpretation Comments HEPATITIS A IgM (test code = NON-REACTIVE 26915) HEPATITIS B CORE IgM (test code NON-REACTIVE = 4644) HEPATITIS B SURF AG (test code = NON-REACTIVE 2739) HEPATITIS C ANTIBODY (test code NON-REACTIVE = 4675) INTERPRETATION HEPATITIS A: (NOTE) (test code = 2552) INTERPRETATION HEPATITIS B: (NOTE) (test code = 24255) INTERPRETATION HEPATITIS C: (NOTE) (test code = 81332) CBC W/AUTO [id number] 00:00:00 Test Item Value Reference Range Interpretation [...] NUCLEATED RBCS (test code = 0.00 K/UL 17086) CBC W/AUTO [id number] 00:00:00 Test Item Value Reference Range Interpretation [...] NUCLEATED RBCS (test code = 0.00 K/UL 26540) HEMOGLOBIN [id number] 00:00:00 Test Item Value Reference Range Interpretation Comments HEMOGLOBIN A1c (test code = 73785) 6.2 % HEMOGLOBIN [id number] 00:00:00 Test Item Value Reference Range Interpretation Comments HEMOGLOBIN A1c (test code = 46590) 6.2 % LIPID [id number] 00:00:00 Test Item Value Reference Range Interpretation Comments CHOLESTEROL (test code = 2210) 196 MG/DL TRIGLYCERIDES (test code = 2232) 486 MG/DL HDL CHOLESTEROL (test code = 44 MG/DL 2219) CALC LDL CHOL (test code = 2237) (NOTE) MG/DL RISK RATIO LDL/HDL (test code = (NOTE) RATIO 2238) COMPREHENSIVE METABOLIC [id number] 00:00:00 Test Item Value Reference Range Interpretation Comments GLUCOSE (test code = 2217) 117 MG/DL BUN (test code = 2208) 54 MG/DL CREATININE (test code = 2214) 11.27 MG/DL eGFR (2020 CKD-EPI) (test code 5 ML/MIN/1.73 = 92022) CALC BUN/CREAT (test code = 5 RATIO 2235) SODIUM (test code = 2231) 139 MEQ/L POTASSIUM (test code = 2228) 4.2 MEQ/L CHLORIDE (test code = 2215) 95 MEQ/L CARBON DIOXIDE (test code = 23 MEQ/L 2205) CALCIUM (test code = 2209) 8.8 MG/DL PROTEIN, TOTAL (test code = 8.5 G/DL 2228) ALBUMIN (test code = 2201) 5.3 G/DL CALC GLOBULIN (test code = 3.2 G/DL 0) CALC A/G RATIO (test code = 1.7 RATIO 2233) BILIRUBIN, TOTAL (test code = 0.3 MG/DL 2206) ALKALINE PHOSPHATASE (test code 70 U/L = 2204) AST (test code = 2218) 6 U/L ALT (test code = 2219) 8 U/L [id number] 00:00:00 Test Item Value Reference Range Interpretation Comments TSH, THIRD GENERATION (test 82.000 UIU/ML code = 2821) [id number] 00:00:00 Test Item Value Reference Range Interpretation Comments TSH, THIRD GENERATION (test 82.000 UIU/ML code = 2821) HIV AB/AG COMBO RFLX [id number] 00:00:00 Test Item Value Reference Range Interpretation Comments HIV 1/2 4TH GEN, RFLX CONF (test NON-REACTIVE code = 3514) ACUTE HEPATITIS [id number] 00:00:00 Test Item Value Reference Range Interpretation Comments HEPATITIS A IgM (test code = NON-REACTIVE 85316) HEPATITIS B CORE IgM (test code NON-REACTIVE = 4644) HEPATITIS B SURF AG (test code = NON-REACTIVE 6369) HEPATITIS C ANTIBODY (test code NON-REACTIVE = 4636) INTERPRETATION HEPATITIS A: (NOTE) (test code = 2552) INTERPRETATION HEPATITIS B: (NOTE) (test code = 64452) INTERPRETATION HEPATITIS C: (NOTE) (test code = 58389) CBC W/AUTO [id number] 00:00:00 Test Item Value Reference Range Interpretation [...] NUCLEATED RBCS (test code = 0.00 K/UL 09570) CBC W/AUTO [id number] 00:00:00 Test Item Value Reference Range Interpretation [...] NUCLEATED RBCS (test code = 0.00 K/UL 94086) CBC W/AUTO [id number] 00:00:00 Test Item Value Reference Range Interpretation [...] NUCLEATED RBCS (test code = 0.00 K/UL 66292) HEMOGLOBIN [id number] 00:00:00 Test Item Value Reference Range Interpretation Comments HEMOGLOBIN A1c (test code = 48527) 6.2 % HEMOGLOBIN [id number] 00:00:00 Test Item Value Reference Range Interpretation Comments HEMOGLOBIN A1c (test code = 96709) 6.2 % HEMOGLOBIN [id number] 00:00:00 Test Item Value Reference Range Interpretation Comments HEMOGLOBIN A1c (test code = 01860) 6.2 % LIPID [id number] 00:00:00 Test Item Value Reference Range Interpretation Comments CHOLESTEROL (test code = 2210) 196 MG/DL TRIGLYCERIDES (test code = 2232) 486 MG/DL HDL CHOLESTEROL (test code = 44 MG/DL 2220) CALC LDL CHOL (test code = 2237) (NOTE) MG/DL RISK RATIO LDL/HDL (test code = (NOTE) RATIO 2238) LIPID [id number] 00:00:00 Test Item Value Reference Range Interpretation Comments CHOLESTEROL (test code = 2210) 196 MG/DL TRIGLYCERIDES (test code = 2232) 486 MG/DL HDL CHOLESTEROL (test code = 44 MG/DL 2220) CALC LDL CHOL (test code = 2237) (NOTE) MG/DL RISK RATIO LDL/HDL (test code = (NOTE) RATIO 2238) COMPREHENSIVE METABOLIC [id number] 00:00:00 Test Item Value Reference Range Interpretation Comments GLUCOSE (test code = 2217) 117 MG/DL BUN (test code = 2208) 54 MG/DL CREATININE (test code = 2214) 11.27 MG/DL eGFR (2020 CKD-EPI) (test code 5 ML/MIN/1.73 = 07647) CALC BUN/CREAT (test code = 5 RATIO 2235) SODIUM (test code = 2231) 139 MEQ/L [...] ALKALINE PHOSPHATASE (test code 70 U/L = 2204) AST (test code = 2218) 6 U/L ALT (test code = 2219) 8 U/L COMPREHENSIVE METABOLIC [id number] 00:00:00 Test Item Value Reference Range Interpretation Comments GLUCOSE (test code = 2217) 117 MG/DL BUN (test code = 2208) 54 MG/DL CREATININE (test code = 2214) 11.27 MG/DL eGFR (2020 CKD-EPI) (test code 5 ML/MIN/1.73 = 49261) CALC BUN/CREAT (test code = 5 RATIO 2235) SODIUM (test code = 2231) 139 MEQ/L [...] ALKALINE PHOSPHATASE (test code 70 U/L = 2204) AST (test code = 2218) 6 U/L ALT (test code = 2219) 8 U/L [id number] 00:00:00 Test Item Value Reference Range Interpretation Comments TSH, THIRD GENERATION (test 82.000 UIU/ML code = 2821) [id number] 00:00:00 Test Item Value Reference Range Interpretation Comments TSH, THIRD GENERATION (test 82.000 UIU/ML code = 2821) [id number] 00:00:00 Test Item Value Reference Range Interpretation Comments TSH, THIRD GENERATION (test 82.000 UIU/ML code = 2821) HIV AB/AG COMBO RFLX [id number] 00:00:00 Test Item Value Reference Range Interpretation Comments HIV 1/2 4TH GEN, RFLX CONF (test NON-REACTIVE code = 3514) HIV AB/AG COMBO RFLX [id number] 00:00:00 Test Item Value Reference Range Interpretation Comments HIV 1/2 4TH GEN, RFLX CONF (test NON-REACTIVE code = 3514) ACUTE HEPATITIS [id number] 00:00:00 Test Item Value Reference Range Interpretation Comments HEPATITIS A IgM (test code = NON-REACTIVE 93512) HEPATITIS B CORE IgM (test code NON-REACTIVE = 4644) HEPATITIS B SURF AG (test code = NON-REACTIVE 2739) HEPATITIS C ANTIBODY (test code NON-REACTIVE = 4675) INTERPRETATION HEPATITIS A: (NOTE) (test code = 2552) INTERPRETATION HEPATITIS B: (NOTE) (test code = 91172) INTERPRETATION HEPATITIS C: (NOTE) (test code = 12384) ACUTE HEPATITIS [id number] 00:00:00 Test Item Value Reference Range Interpretation Comments HEPATITIS A IgM (test code = NON-REACTIVE 55284) HEPATITIS B CORE IgM (test code NON-REACTIVE = 4644) HEPATITIS B SURF AG (test code = NON-REACTIVE 2739) HEPATITIS C ANTIBODY (test code NON-REACTIVE = 4675) INTERPRETATION HEPATITIS A: (NOTE) (test code = 2552) INTERPRETATION HEPATITIS B: (NOTE) (test code = 88581) INTERPRETATION HEPATITIS C: (NOTE) (test code = 91674) CBC W/AUTO [id number] 00:00:00 Test Item Value Reference Range Interpretation [...] NUCLEATED RBCS (test code = 0.00 K/UL 11692) CBC W/AUTO [id number] 00:00:00 Test Item Value Reference Range Interpretation [...] NUCLEATED RBCS (test code = 0.00 K/UL 15501) CBC W/AUTO [id number] 00:00:00 Test Item Value Reference Range Interpretation [...] NUCLEATED RBCS (test code = 0.00 K/UL 46068) HEMOGLOBIN [id number] 00:00:00 Test Item Value Reference Range Interpretation Comments HEMOGLOBIN A1c (test code = 35858) 6.2 % HEMOGLOBIN [id number] 00:00:00 Test Item Value Reference Range Interpretation Comments HEMOGLOBIN A1c (test code = 41569) 6.2 % HEMOGLOBIN [id number] 00:00:00 Test Item Value Reference Range Interpretation Comments HEMOGLOBIN A1c (test code = 17703) 6.2 % LIPID [id number] 00:00:00 Test Item Value Reference Range Interpretation Comments CHOLESTEROL (test code = 2210) 196 MG/DL TRIGLYCERIDES (test code = 2232) 486 MG/DL HDL CHOLESTEROL (test code = 44 MG/DL 2220) CALC LDL CHOL (test code = 2237) (NOTE) MG/DL RISK RATIO LDL/HDL (test code = (NOTE) RATIO 2238) LIPID [id number] 00:00:00 Test Item Value Reference Range Interpretation Comments CHOLESTEROL (test code = 2210) 196 MG/DL TRIGLYCERIDES (test code = 2232) 486 MG/DL HDL CHOLESTEROL (test code = 44 MG/DL 2220) CALC LDL CHOL (test code = 2237) (NOTE) MG/DL RISK RATIO LDL/HDL (test code = (NOTE) RATIO 2238) TSH, THIRD [id number] 05:58:13 Test Item Value Reference Range Interpretation Comments TSH, THIRD 33.700 UIU/ML 0.400-4.100 H UNLESS OTHERW ISE GENERATION (test INDICATED, ALL code = 2821) TESTING PERFORM ED [facility], [id number] [place] [address] DIRECTOR: LATOYA MCCALL M.D. CLIA NUMBER [id number] CAP ACCREDITATION N O. [id number] HEMOGLOBIN [id number] 02:44:08 Test Item Value Reference Range Interpretation Comments HEMOGLOBIN A1c (test 7.0 % 4.2-5.6 H [employer] AN DIABETES code = 78045) ASSOCIATION [employer] FOR HGB A1C: PREDIABETES/INC REASED [...] Interpretation Comments HEMOGLOBIN A1c (test code = 16913) 7.0 % HEMOGLOBIN A1c [ADDED]2021-05-16 00:00:00 Test Item Value Reference Range Interpretation Comments HEMOGLOBIN A1c (test code = 35981) 7.0 % HEMOGLOBIN A1c [ADDED]2021-05-16 00:00:00 Test Item Value Reference Range Interpretation Comments HEMOGLOBIN A1c (test code = 78853) 7.0 % TSH, THIRD GENERATION [ADDED]2021-05-16 00:00:00 [...] GENERATION (test 33.700 UIU/ML code = 2821) HEMOGLOBIN A1c [ADDED]2021-05-16 00:00:00 Test Item Value Reference Range Interpretation Comments HEMOGLOBIN A1c (test code = 07546) 7.0 % HEMOGLOBIN A1c [ADDED]2021-05-16 00:00:00 Test Item Value Reference Range Interpretation Comments HEMOGLOBIN A1c (test code = 79807) 7.0 % HEMOGLOBIN A1c [ADDED]2021-05-16 00:00:00 Test Item Value Reference Range Interpretation Comments HEMOGLOBIN A1c (test code = 00695) 7.0 % TSH, THIRD GENERATION [ADDED]2021-05-16 00:00:00 [...] GENERATION (test 33.700 UIU/ML code = 2821) HEMOGLOBIN A1c [ADDED]2021-05-16 00:00:00 Test Item Value Reference Range Interpretation Comments HEMOGLOBIN A1c (test code = 36180) 7.0 % HEMOGLOBIN A1c [ADDED]2021-05-16 00:00:00 Test Item Value Reference Range Interpretation Comments HEMOGLOBIN A1c (test code = 11360) 7.0 % TSH, THIRD GENERATION [ADDED]2021-05-16 00:00:00 Test Item Value Reference Range Interpretation Comments TSH, THIRD GENERATION (test 33.700 UIU/ML code = 2821) TSH, THIRD GENERATION [ADDED]2021-05-16 00:00:00 Test Item Value Reference Range Interpretation Comments TSH, THIRD GENERATION (test 33.700 UIU/ML code = 2821) HEMOGLOBIN A1c [ADDED]2021-05-16 00:00:00 Test Item Value Reference Range Interpretation Comments HEMOGLOBIN A1c (test code = 34545) 7.0 % HEMOGLOBIN A1c [ADDED]2021-05-16 00:00:00 Test Item Value Reference Range Interpretation Comments HEMOGLOBIN A1c (test code = 82296) 7.0 % HEMOGLOBIN A1c [ADDED]2021-05-16 00:00:00 Test Item Value Reference Range Interpretation Comments HEMOGLOBIN A1c (test code = 84135) 7.0 % TSH, THIRD GENERATION [ADDED]2021-05-16 00:00:00 [...] GENERATION (test 33.700 UIU/ML code = 2821) HEMOGLOBIN A1c [ADDED]2021-05-16 00:00:00 Test Item Value Reference Range Interpretation Comments HEMOGLOBIN A1c (test code = 98174) 7.0 % HEMOGLOBIN A1c [ADDED]2021-05-16 00:00:00 Test Item Value Reference Range Interpretation Comments HEMOGLOBIN A1c (test code = 09893) 7.0 % HEMOGLOBIN A1c [ADDED]2021-05-16 00:00:00 Test Item Value Reference Range Interpretation Comments HEMOGLOBIN A1c (test code = 98102) 7.0 % TSH, THIRD GENERATION [ADDED]2021-05-16 00:00:00 [...] 33.700 UIU/ML code = 2821) CBC W/AUTO [id number] 00:00:00 Test Item Value Reference Range Interpretation [...] NUCLEATED RBCS (test code = 0.00 K/UL 72416) CBC W/AUTO [id number] 00:00:00 Test Item Value Reference Range Interpretation [...] NUCLEATED RBCS (test code = 0.00 K/UL 02234) CBC W/AUTO [id number] 00:00:00 Test Item Value Reference Range Interpretation [...] NUCLEATED RBCS (test code = 0.00 K/UL 96007) COMPREHENSIVE METABOLIC [id number] 00:00:00 Test Item Value Reference Range Interpretation Comments GLUCOSE (test code = 2217) 317 MG/DL BUN (test code = 2208) 41 MG/DL CREATININE (test code = 2214) 6.82 MG/DL eGFR (2020 CKD-EPI) (test code 8 ML/MIN/1.73 = 49400) CALC BUN/CREAT (test code = 6 RATIO [...] ALKALINE PHOSPHATASE (test code 118 U/L = 2203) AST (test code = 2218) 13 U/L ALT (test code = 2219) 22 U/L COMPREHENSIVE METABOLIC [id number] 00:00:00 Test Item Value Reference Range Interpretation Comments GLUCOSE (test code = 2217) 317 MG/DL BUN (test code = 2208) 41 MG/DL CREATININE (test code = 2214) 6.82 MG/DL eGFR (2020 CKD-EPI) (test code 8 ML/MIN/1.73 = 77330) CALC BUN/CREAT (test code = 6 RATIO 2235) SODIUM (test code = 2231) 137 MEQ/L POTASSIUM (test code = 2228) 3.8 MEQ/L CHLORIDE (test code = 2215) 91 MEQ/L CARBON DIOXIDE (test code = 25 MEQ/L 220) CALCIUM (test code = 2209) 9.6 MG/DL PROTEIN, TOTAL (test code = 8.7 G/DL 2228) ALBUMIN (test code = 2201) 5.5 G/DL CALC GLOBULIN (test code = 3.2 G/DL 2240) CALC A/G RATIO (test code = 1.7 RATIO 4) BILIRUBIN, TOTAL (test code = 0.3 MG/DL 2206) ALKALINE PHOSPHATASE (test code 118 U/L = 2204) AST (test code = 2218) 13 U/L ALT (test code = 2219) 22 U/L CBC W/AUTO [id number] 00:00:00 Test Item Value Reference Range Interpretation [...] NUCLEATED RBCS (test code = 0.00 K/UL 04743) CBC W/AUTO [id number] 00:00:00 Test Item Value Reference Range Interpretation [...] NUCLEATED RBCS (test code = 0.00 K/UL 00078) CBC W/AUTO [id number] 00:00:00 Test Item Value Reference Range Interpretation [...] NUCLEATED RBCS (test code = 0.00 K/UL 81031) COMPREHENSIVE METABOLIC [id number] 00:00:00 Test Item Value Reference Range Interpretation Comments GLUCOSE (test code = 2217) 317 MG/DL BUN (test code = 2208) 41 MG/DL CREATININE (test code = 2214) 6.82 MG/DL eGFR (2020 CKD-EPI) (test code 8 ML/MIN/1.73 = 10306) CALC BUN/CREAT (test code = 6 RATIO 2235) SODIUM (test code = 2231) 137 MEQ/L POTASSIUM (test code = 2228) 3.8 MEQ/L CHLORIDE (test code = 2215) 91 MEQ/L CARBON DIOXIDE (test code = 25 MEQ/L 6) CALCIUM (test code = 2209) 9.6 MG/DL [...] ALT (test code = 2219) 22 U/L COMPREHENSIVE METABOLIC [id number] 00:00:00 Test Item Value Reference Range Interpretation Comments GLUCOSE (test code = 2217) 317 MG/DL BUN (test code = 2208) 41 MG/DL CREATININE (test code = 2214) 6.82 MG/DL eGFR (2020 CKD-EPI) (test code 8 ML/MIN/1.73 = 00131) CALC BUN/CREAT (test code = 6 RATIO [...] ALKALINE PHOSPHATASE (test code 118 U/L = 2203) AST (test code = 2218) 13 U/L ALT (test code = 2219) 22 U/L CBC W/AUTO [id number] 00:00:00 Test Item Value Reference Range Interpretation [...] NUCLEATED RBCS (test code = 0.00 K/UL 68029) CBC W/AUTO [id number] 00:00:00 Test Item Value Reference Range Interpretation [...] NUCLEATED RBCS (test code = 0.00 K/UL 14133) COMPREHENSIVE METABOLIC [id number] 00:00:00 Test Item Value Reference Range Interpretation Comments GLUCOSE (test code = 2217) 317 MG/DL BUN (test code = 2208) 41 MG/DL CREATININE (test code = 2214) 6.82 MG/DL eGFR (2020 CKD-EPI) (test code 8 ML/MIN/1.73 = 76177) CALC BUN/CREAT (test code = 6 RATIO 2235) SODIUM (test code = 2231) 137 MEQ/L POTASSIUM (test code = 2228) 3.8 MEQ/L CHLORIDE (test code = 2215) 91 MEQ/L CARBON DIOXIDE (test code = 25 MEQ/L 2205) CALCIUM (test code = 2209) 9.6 MG/DL PROTEIN, TOTAL (test code = 8.7 G/DL 2229) ALBUMIN (test code = 2201) 5.5 G/DL CALC GLOBULIN (test code = 3.2 G/DL 2240) CALC A/G RATIO (test code = 1.7 RATIO 2234) BILIRUBIN, TOTAL (test code = 0.3 MG/DL 2207) ALKALINE PHOSPHATASE (test code 118 U/L = 2204) AST (test code = 2218) 13 U/L ALT (test code = 2219) 22 U/L CBC W/AUTO [id number] 00:00:00 Test Item Value Reference Range Interpretation [...] NUCLEATED RBCS (test code = 0.00 K/UL 71337) CBC W/AUTO [id number] 00:00:00 Test Item Value Reference Range Interpretation [...] NUCLEATED RBCS (test code = 0.00 K/UL 62682) CBC W/AUTO [id number] 00:00:00 Test Item Value Reference Range Interpretation [...] NUCLEATED RBCS (test code = 0.00 K/UL 46910) COMPREHENSIVE METABOLIC [id number] 00:00:00 Test Item Value Reference Range Interpretation Comments GLUCOSE (test code = 2217) 317 MG/DL BUN (test code = 2208) 41 MG/DL CREATININE (test code = 2214) 6.82 MG/DL eGFR (2020 CKD-EPI) (test code 8 ML/MIN/1.73 = 80066) CALC BUN/CREAT (test code = 6 RATIO [...] ALT (test code = 2219) 22 U/L COMPREHENSIVE METABOLIC [id number] 00:00:00 Test Item Value Reference Range Interpretation Comments GLUCOSE (test code = 2217) 317 MG/DL BUN (test code = 2208) 41 MG/DL CREATININE (test code = 2214) 6.82 MG/DL eGFR (2020 CKD-EPI) (test code 8 ML/MIN/1.73 = 17947) CALC BUN/CREAT (test code = 6 RATIO 2234) SODIUM (test code = 2231) 137 MEQ/L [...] ALKALINE PHOSPHATASE (test code 118 U/L = 2203) AST (test code = 2218) 13 U/L ALT (test code = 2219) 22 U/L CBC W/AUTO [id number] 00:00:00 Test Item Value Reference Range Interpretation [...] NUCLEATED RBCS (test code = 0.00 K/UL 57240) CBC W/AUTO [id number] 00:00:00 Test Item Value Reference Range Interpretation [...] NUCLEATED RBCS (test code = 0.00 K/UL 69546) CBC W/AUTO [id number] 00:00:00 Test Item Value Reference Range Interpretation [...] NUCLEATED RBCS (test code = 0.00 K/UL 32293) COMPREHENSIVE METABOLIC [id number] 00:00:00 Test Item Value Reference Range Interpretation Comments GLUCOSE (test code = 2217) 317 MG/DL BUN (test code = 2208) 41 MG/DL CREATININE (test code = 2214) 6.82 MG/DL eGFR (2020 CKD-EPI) (test code 8 ML/MIN/1.73 = 90945) CALC BUN/CREAT (test code = 6 RATIO [...] ALT (test code = 2219) 22 U/L COMPREHENSIVE METABOLIC [id number] 00:00:00 Test Item Value Reference Range Interpretation Comments GLUCOSE (test code = 2217) 317 MG/DL BUN (test code = 2208) 41 MG/DL CREATININE (test code = 2214) 6.82 MG/DL eGFR (2020 CKD-EPI) (test code 8 ML/MIN/1.73 = 62946) CALC BUN/CREAT (test code = 6 RATIO 2235) SODIUM (test code = 2231) 137 MEQ/L POTASSIUM (test code = 2228) 3.8 MEQ/L CHLORIDE (test code = 2215) 91 MEQ/L CARBON DIOXIDE (test code = 25 MEQ/L 2205) CALCIUM (test code = 2209) 9.6 MG/DL PROTEIN, TOTAL (test code = 8.7 G/DL 2228) ALBUMIN (test code = 220) 5.5 G/DL CALC GLOBULIN (test code = 3.2 G/DL 2239) CALC A/G RATIO (test code = 1.7 RATIO 2233) BILIRUBIN, TOTAL (test code = 0.3 MG/DL 2206) ALKALINE PHOSPHATASE (test code 118 U/L = 2203) AST (test code = 2218) 13 U/L ALT (test code = 2219) 22 U/L [id number] 00:00:00 Test Item Value Reference Range Interpretation Comments AMYLASE (test code = 2205) 168 U/L [id number] 00:00:00 Test Item Value Reference Range Interpretation Comments AMYLASE (test code = 5) 168 U/L [id number] 00:00:00 Test Item Value Reference Range Interpretation Comments LIPASE (test code = 205) 116 U/L [id number] 00:00:00 Test Item Value Reference Range Interpretation Comments LIPASE (test code = 2057) 116 U/L [id number] 00:00:00 Test Item Value Reference Range Interpretation Comments LIPASE (test code = 2057) 116 U/L [id number] 00:00:00 Test Item Value Reference Range Interpretation Comments AMYLASE (test code = 5) 168 U/L [id number] 00:00:00 Test Item Value Reference Range Interpretation Comments AMYLASE (test code = 5) 168 U/L [id number] 00:00:00 Test Item Value Reference Range Interpretation Comments LIPASE (test code = 2058) 116 U/L [id number] 00:00:00 Test Item Value Reference Range Interpretation Comments LIPASE (test code = 2057) 116 U/L [id number] 00:00:00 Test Item Value Reference Range Interpretation Comments LIPASE (test code = 2057) 116 U/L [id number] 00:00:00 Test Item Value Reference Range Interpretation Comments AMYLASE (test code = 2205) 168 U/L [id number] 00:00:00 Test Item Value Reference Range Interpretation Comments LIPASE (test code = 2057) 116 U/L [id number] 00:00:00 Test Item Value Reference Range Interpretation Comments LIPASE (test code = 2057) 116 U/L [id number] 00:00:00 Test Item Value Reference Range Interpretation Comments AMYLASE (test code = 5) 168 U/L [id number] 00:00:00 Test Item Value Reference Range Interpretation Comments AMYLASE (test code = 5) 168 U/L [id number] 00:00:00 Test Item Value Reference Range Interpretation Comments LIPASE (test code = 2057) 116 U/L [id number] 00:00:00 Test Item Value Reference Range Interpretation Comments LIPASE (test code = 2057) 116 U/L [id number] 00:00:00 Test Item Value Reference Range Interpretation Comments LIPASE (test code = 2057) 116 U/L [id number] 00:00:00 Test Item Value Reference Range Interpretation Comments AMYLASE (test code = 2205) 168 U/L [id number] 00:00:00 Test Item Value Reference Range Interpretation Comments AMYLASE (test code = 2205) 168 U/L [id number] 00:00:00 Test Item Value Reference Range Interpretation Comments LIPASE (test code = 2057) 116 U/L [id number] 00:00:00 Test Item Value Reference Range Interpretation Comments LIPASE (test code = 2057) 116 U/L [id number] 00:00:00 Test Item Value Reference Range Interpretation Comments LIPASE (test code = 2057) 116 U/L CBC W/AUTO [id number] 00:00:00 Test Item Value Reference Range Interpretation [...] NUCLEATED RBCS (test code = 0.00 K/UL 85841) CBC W/AUTO [id number] 00:00:00 Test Item Value Reference Range Interpretation [...] NUCLEATED RBCS (test code = 0.00 K/UL 82447) COMPREHENSIVE METABOLIC [id number] 00:00:00 Test Item Value Reference Range Interpretation Comments GLUCOSE (test code = 2217) 137 MG/DL BUN (test code = 2208) 56 MG/DL CREATININE (test code = 2214) 10.21 MG/DL eGFR AMER. (test code = 6 ML/MIN/1.73 17852) eGFR NON- AMER. (test 5 ML/MIN/1.73 code = 32360) CALC BUN/CREAT (test code = 5 RATIO 2235) SODIUM (test code = 2231) 141 MEQ/L POTASSIUM (test code = 2228) 4.4 MEQ/L CHLORIDE (test code = 2215) 93 MEQ/L CARBON DIOXIDE (test code = 24 MEQ/L 2206) CALCIUM (test code = 2209) 9.5 MG/DL PROTEIN, TOTAL (test code = 8.7 G/DL 2228) ALBUMIN (test code = 2201) 5.5 G/DL CALC GLOBULIN (test code = 3.2 G/DL 2240) CALC A/G RATIO (test code = 1.7 RATIO 2234) BILIRUBIN, TOTAL (test code = 0.4 MG/DL 2206) ALKALINE PHOSPHATASE (test code 83 U/L = 2204) AST (test code = 2218) 13 U/L ALT (test code = 2219) 16 U/L COMPREHENSIVE METABOLIC [id number] 00:00:00 Test Item Value Reference Range Interpretation Comments GLUCOSE (test code = 2217) 137 MG/DL BUN (test code = 2208) 56 MG/DL CREATININE (test code = 2214) 10.21 MG/DL eGFR AMER. (test code = 6 ML/MIN/1.73 43782) eGFR NON- AMER. (test 5 ML/MIN/1.73 code = 92157) CALC BUN/CREAT (test code = 5 RATIO 2235) SODIUM (test code = 2231) 141 MEQ/L POTASSIUM (test code = 2228) 4.4 MEQ/L CHLORIDE (test code = 2215) 93 MEQ/L CARBON DIOXIDE (test code = 24 MEQ/L 2205) CALCIUM (test code = 2209) 9.5 MG/DL PROTEIN, TOTAL (test code = 8.7 G/DL 2228) ALBUMIN (test code = 2201) 5.5 G/DL CALC GLOBULIN (test code = 3.2 G/DL 2239) CALC A/G RATIO (test code = 1.7 RATIO 2233) BILIRUBIN, TOTAL (test code = 0.4 MG/DL 2206) ALKALINE PHOSPHATASE (test code 83 U/L = 2204) AST (test code = 2218) 13 U/L ALT (test code = 2219) 16 U/L [id number] 00:00:00 Test Item Value Reference Range Interpretation Comments TSH, THIRD GENERATION (test >100.000 UIU/ML code = 2821) [id number] 00:00:00 Test Item Value Reference Range Interpretation Comments TSH, THIRD GENERATION (test >100.000 UIU/ML code = 2821) [id number] 00:00:00 Test Item Value Reference Range Interpretation Comments TSH, THIRD GENERATION (test >100.000 UIU/ML code = 2821) LIPID [id number] 00:00:00 Test Item Value Reference Range Interpretation Comments CHOLESTEROL (test code = 2210) 308 MG/DL TRIGLYCERIDES (test code = 2232) 280 MG/DL HDL CHOLESTEROL (test code = 2220) 66 MG/DL CALC LDL CHOL (test code = 2237) 192 MG/DL RISK RATIO LDL/HDL (test code = 2.91 RATIO 8) LIPID [id number] 00:00:00 Test Item Value Reference Range Interpretation Comments CHOLESTEROL (test code = 2210) 308 MG/DL TRIGLYCERIDES (test code = 2232) 280 MG/DL HDL CHOLESTEROL (test code = 2220) 66 MG/DL CALC LDL CHOL (test code = 2237) 192 MG/DL RISK RATIO LDL/HDL (test code = 2.91 RATIO 2238) CBC W/AUTO [id number] 00:00:00 Test Item Value Reference Range Interpretation [...] NUCLEATED RBCS (test code = 0.00 K/UL 90125) CBC W/AUTO [id number] 00:00:00 Test Item Value Reference Range Interpretation [...] NUCLEATED RBCS (test code = 0.00 K/UL 48206) CBC W/AUTO [id number] 00:00:00 Test Item Value Reference Range Interpretation [...] NUCLEATED RBCS (test code = 0.00 K/UL 35369) COMPREHENSIVE METABOLIC [id number] 00:00:00 Test Item Value Reference Range Interpretation Comments GLUCOSE (test code = 2217) 137 MG/DL BUN (test code = 2208) 56 MG/DL CREATININE (test code = 2214) 10.21 MG/DL eGFR AMER. (test code = 6 ML/MIN/1.73 35625) eGFR NON- AMER. (test 5 ML/MIN/1.73 code = 01673) CALC BUN/CREAT (test code = 5 RATIO [...] CALC GLOBULIN (test code = 3.2 G/DL 0) CALC A/G RATIO (test code = 1.7 RATIO 2234) BILIRUBIN, TOTAL (test code = 0.4 MG/DL 2206) ALKALINE PHOSPHATASE (test code 83 U/L = 2204) AST (test code = 2218) 13 U/L ALT (test code = 2219) 16 U/L COMPREHENSIVE METABOLIC [id number] 00:00:00 Test Item Value Reference Range Interpretation Comments GLUCOSE (test code = 2217) 137 MG/DL BUN (test code = 2208) 56 MG/DL CREATININE (test code = 2214) 10.21 MG/DL eGFR AMER. (test code = 6 ML/MIN/1.73 53778) eGFR NON- AMER. (test 5 ML/MIN/1.73 code = 20446) CALC BUN/CREAT (test code = 5 RATIO [...] BILIRUBIN, TOTAL (test code = 0.4 MG/DL 2206) ALKALINE PHOSPHATASE (test code 83 U/L = 2204) AST (test code = 2218) 13 U/L ALT (test code = 2219) 16 U/L [id number] 00:00:00 Test Item Value Reference Range Interpretation Comments TSH, THIRD GENERATION (test >100.000 UIU/ML code = 2821) [id number] 00:00:00 Test Item Value Reference Range Interpretation Comments TSH, THIRD GENERATION (test >100.000 UIU/ML code = 2821) [id number] 00:00:00 Test Item Value Reference Range Interpretation Comments TSH, THIRD GENERATION (test >100.000 UIU/ML code = 2821) LIPID [id number] 00:00:00 Test Item Value Reference Range Interpretation Comments CHOLESTEROL (test code = 2210) 308 MG/DL TRIGLYCERIDES (test code = 2232) 280 MG/DL HDL CHOLESTEROL (test code = 2220) 66 MG/DL CALC LDL CHOL (test code = 2237) 192 MG/DL RISK RATIO LDL/HDL (test code = 2.91 RATIO 2238) LIPID [id number] 00:00:00 Test Item Value Reference Range Interpretation Comments CHOLESTEROL (test code = 2210) 308 MG/DL TRIGLYCERIDES (test code = 2232) 280 MG/DL HDL CHOLESTEROL (test code = 2220) 66 MG/DL CALC LDL CHOL (test code = 2237) 192 MG/DL RISK RATIO LDL/HDL (test code = 2.91 RATIO 2238) CBC W/AUTO [id number] 00:00:00 Test Item Value Reference Range Interpretation [...] NUCLEATED RBCS (test code = 0.00 K/UL 93260) CBC W/AUTO [id number] 00:00:00 Test Item Value Reference Range Interpretation [...] NUCLEATED RBCS (test code = 0.00 K/UL 86085) CBC W/AUTO [id number] 00:00:00 Test Item Value Reference Range Interpretation [...] NUCLEATED RBCS (test code = 0.00 K/UL 25704) COMPREHENSIVE METABOLIC [id number] 00:00:00 Test Item Value Reference Range Interpretation Comments GLUCOSE (test code = 2217) 137 MG/DL BUN (test code = 2208) 56 MG/DL CREATININE (test code = 2214) 10.21 MG/DL eGFR AMER. (test code = 6 ML/MIN/1.73 25264) eGFR NON- AMER. (test 5 ML/MIN/1.73 code = 01354) CALC BUN/CREAT (test code = 5 RATIO 2235) SODIUM (test code = 2231) 141 MEQ/L POTASSIUM (test code = 2228) 4.4 MEQ/L CHLORIDE (test code = 2215) 93 MEQ/L CARBON DIOXIDE (test code = 24 MEQ/L 2206) CALCIUM (test code = 2209) 9.5 MG/DL PROTEIN, TOTAL (test code = 8.7 G/DL 222) ALBUMIN (test code = 2201) 5.5 G/DL CALC GLOBULIN (test code = 3.2 G/DL 2240) CALC A/G RATIO (test code = 1.7 RATIO 2234) BILIRUBIN, TOTAL (test code = 0.4 MG/DL 2206) ALKALINE PHOSPHATASE (test code 83 U/L = 2203) AST (test code = 2218) 13 U/L ALT (test code = 2219) 16 U/L COMPREHENSIVE METABOLIC [id number] 00:00:00 Test Item Value Reference Range Interpretation Comments GLUCOSE (test code = 2217) 137 MG/DL BUN (test code = 2208) 56 MG/DL CREATININE (test code = 2214) 10.21 MG/DL eGFR AMER. (test code = 6 ML/MIN/1.73 11333) eGFR NON- AMER. (test 5 ML/MIN/1.73 code = 04535) CALC BUN/CREAT (test code = 5 RATIO 2235) SODIUM (test code = 2231) 141 MEQ/L POTASSIUM (test code = 2228) 4.4 MEQ/L CHLORIDE (test code = 2215) 93 MEQ/L CARBON DIOXIDE (test code = 24 MEQ/L 2206) CALCIUM (test code = 2209) 9.5 MG/DL PROTEIN, TOTAL (test code = 8.7 G/DL 2228) ALBUMIN (test code = 2201) 5.5 G/DL CALC GLOBULIN (test code = 3.2 G/DL 2240) CALC A/G RATIO (test code = 1.7 RATIO 2234) BILIRUBIN, TOTAL (test code = 0.4 MG/DL 2206) ALKALINE PHOSPHATASE (test code 83 U/L = 2204) AST (test code = 2218) 13 U/L ALT (test code = 2219) 16 U/L [id number] 00:00:00 Test Item Value Reference Range Interpretation Comments TSH, THIRD GENERATION (test >100.000 UIU/ML code = 2821) [id number] 00:00:00 Test Item Value Reference Range Interpretation Comments TSH, THIRD GENERATION (test >100.000 UIU/ML code = 2821) LIPID [id number] 00:00:00 Test Item Value Reference Range Interpretation Comments CHOLESTEROL (test code = 2210) 308 MG/DL TRIGLYCERIDES (test code = 2232) 280 MG/DL HDL CHOLESTEROL (test code = 2220) 66 MG/DL CALC LDL CHOL (test code = 2237) 192 MG/DL RISK RATIO LDL/HDL (test code = 2.91 RATIO 2238) CBC W/AUTO [id number] 00:00:00 Test Item Value Reference Range Interpretation [...] NUCLEATED RBCS (test code = 0.00 K/UL 60665) CBC W/AUTO [id number] 00:00:00 Test Item Value Reference Range Interpretation [...] NUCLEATED RBCS (test code = 0.00 K/UL 11396) COMPREHENSIVE METABOLIC [id number] 00:00:00 Test Item Value Reference Range Interpretation Comments GLUCOSE (test code = 2217) 137 MG/DL BUN (test code = 2208) 56 MG/DL CREATININE (test code = 2214) 10.21 MG/DL eGFR AMER. (test code = 6 ML/MIN/1.73 74488) eGFR NON- AMER. (test 5 ML/MIN/1.73 code = 42088) CALC BUN/CREAT (test code = 5 RATIO 2235) SODIUM (test code = 2231) 141 MEQ/L POTASSIUM (test code = 2228) 4.4 MEQ/L CHLORIDE (test code = 2215) 93 MEQ/L CARBON DIOXIDE (test code = 24 MEQ/L 2206) CALCIUM (test code = 2209) 9.5 MG/DL PROTEIN, TOTAL (test code = 8.7 G/DL 2228) ALBUMIN (test code = 2201) 5.5 G/DL CALC GLOBULIN (test code = 3.2 G/DL 2239) CALC A/G RATIO (test code = 1.7 RATIO 4) BILIRUBIN, TOTAL (test code = 0.4 MG/DL 2206) ALKALINE PHOSPHATASE (test code 83 U/L = 2204) AST (test code = 2218) 13 U/L ALT (test code = 2219) 16 U/L [id number] 00:00:00 Test Item Value Reference Range Interpretation Comments TSH, THIRD GENERATION (test >100.000 UIU/ML code = 2821) [id number] 00:00:00 Test Item Value Reference Range Interpretation Comments TSH, THIRD GENERATION (test >100.000 UIU/ML code = 2821) [id number] 00:00:00 Test Item Value Reference Range Interpretation Comments TSH, THIRD GENERATION (test >100.000 UIU/ML code = 2821) LIPID [id number] 00:00:00 Test Item Value Reference Range Interpretation Comments CHOLESTEROL (test code = 2210) 308 MG/DL TRIGLYCERIDES (test code = 2232) 280 MG/DL HDL CHOLESTEROL (test code = 2220) 66 MG/DL CALC LDL CHOL (test code = 2237) 192 MG/DL RISK RATIO LDL/HDL (test code = 2.91 RATIO 2238) LIPID [id number] 00:00:00 Test Item Value Reference Range Interpretation Comments CHOLESTEROL (test code = 2210) 308 MG/DL TRIGLYCERIDES (test code = 2232) 280 MG/DL HDL CHOLESTEROL (test code = 2220) 66 MG/DL CALC LDL CHOL (test code = 2237) 192 MG/DL RISK RATIO LDL/HDL (test code = 2.91 RATIO 2238) CBC W/AUTO [id number] 00:00:00 Test Item Value Reference Range Interpretation [...] NUCLEATED RBCS (test code = 0.00 K/UL 48737) CBC W/AUTO [id number] 00:00:00 Test Item Value Reference Range Interpretation [...] NUCLEATED RBCS (test code = 0.00 K/UL 84785) CBC W/AUTO [id number] 00:00:00 Test Item Value Reference Range Interpretation [...] NUCLEATED RBCS (test code = 0.00 K/UL 97985) COMPREHENSIVE METABOLIC [id number] 00:00:00 Test Item Value Reference Range Interpretation Comments GLUCOSE (test code = 2217) 137 MG/DL BUN (test code = 2208) 56 MG/DL CREATININE (test code = 2214) 10.21 MG/DL eGFR AMER. (test code = 6 ML/MIN/1.73 98489) eGFR NON- AMER. (test 5 ML/MIN/1.73 code = 91330) CALC BUN/CREAT (test code = 5 RATIO 2235) SODIUM (test code = 2231) 141 MEQ/L POTASSIUM (test code = 2228) 4.4 MEQ/L CHLORIDE (test code = 2215) 93 MEQ/L CARBON DIOXIDE (test code = 24 MEQ/L 2206) CALCIUM (test code = 2209) 9.5 MG/DL PROTEIN, TOTAL (test code = 8.7 G/DL 2228) ALBUMIN (test code = 2201) 5.5 G/DL CALC GLOBULIN (test code = 3.2 G/DL 2240) CALC A/G RATIO (test code = 1.7 RATIO 2234) BILIRUBIN, TOTAL (test code = 0.4 MG/DL 2206) ALKALINE PHOSPHATASE (test code 83 U/L = 2203) AST (test code = 2218) 13 U/L ALT (test code = 2219) 16 U/L COMPREHENSIVE METABOLIC [id number] 00:00:00 Test Item Value Reference Range Interpretation Comments GLUCOSE (test code = 2217) 137 MG/DL BUN (test code = 2208) 56 MG/DL CREATININE (test code = 2214) 10.21 MG/DL eGFR AMER. (test code = 6 ML/MIN/1.73 16304) eGFR NON- AMER. (test 5 ML/MIN/1.73 code = 54134) CALC BUN/CREAT (test code = 5 RATIO 2235) SODIUM (test code = 2231) 141 MEQ/L POTASSIUM (test code = 2228) 4.4 MEQ/L CHLORIDE (test code = 2215) 93 MEQ/L CARBON DIOXIDE (test code = 24 MEQ/L 2206) CALCIUM (test code = 2209) 9.5 MG/DL PROTEIN, TOTAL (test code = 8.7 G/DL 2228) ALBUMIN (test code = 2201) 5.5 G/DL CALC GLOBULIN (test code = 3.2 G/DL 2240) CALC A/G RATIO (test code = 1.7 RATIO 2234) BILIRUBIN, TOTAL (test code = 0.4 MG/DL 2206) ALKALINE PHOSPHATASE (test code 83 U/L = 2204) AST (test code = 2218) 13 U/L ALT (test code = 2219) 16 U/L [id number] 00:00:00 Test Item Value Reference Range Interpretation Comments TSH, THIRD GENERATION (test >100.000 UIU/ML code = 2821) [id number] 00:00:00 Test Item Value Reference Range Interpretation Comments TSH, THIRD GENERATION (test >100.000 UIU/ML code = 2821) [id number] 00:00:00 Test Item Value Reference Range Interpretation Comments TSH, THIRD GENERATION (test >100.000 UIU/ML code = 2821) LIPID [id number] 00:00:00 Test Item Value Reference Range Interpretation Comments CHOLESTEROL (test code = 2210) 308 MG/DL TRIGLYCERIDES (test code = 2232) 280 MG/DL HDL CHOLESTEROL (test code = 2220) 66 MG/DL CALC LDL CHOL (test code = 2237) 192 MG/DL RISK RATIO LDL/HDL (test code = 2.91 RATIO 2238) LIPID [id number] 00:00:00 Test Item Value Reference Range Interpretation Comments CHOLESTEROL (test code = 2210) 308 MG/DL TRIGLYCERIDES (test code = 2232) 280 MG/DL HDL CHOLESTEROL (test code = 2220) 66 MG/DL CALC LDL CHOL (test code = 2237) 192 MG/DL RISK RATIO LDL/HDL (test code = 2.91 RATIO 2238) CBC W/AUTO [id number] 00:00:00 Test Item Value Reference Range Interpretation [...] NUCLEATED RBCS (test code = 0.00 K/UL 08773) HEMOGLOBIN [id number] 00:00:00 Test Item Value Reference Range Interpretation Comments HEMOGLOBIN A1c (test code = 18870) 5.5 % HEMOGLOBIN [id number] 00:00:00 Test Item Value Reference Range Interpretation Comments HEMOGLOBIN A1c (test code = 87114) 5.5 % HEMOGLOBIN [id number] 00:00:00 Test Item Value Reference Range Interpretation Comments HEMOGLOBIN A1c (test code = 90942) 5.5 % [id number] 00:00:00 Test Item Value Reference Range Interpretation Comments TSH, THIRD GENERATION (test >100.000 UIU/ML code = 2821) [id number] 00:00:00 Test Item Value Reference Range Interpretation Comments TSH, THIRD GENERATION (test >100.000 UIU/ML code = 2821) [id number] 00:00:00 Test Item Value Reference Range Interpretation Comments TSH, THIRD GENERATION (test >100.000 UIU/ML code = 2821) HEMOGLOBIN [id number] 00:00:00 Test Item Value Reference Range Interpretation Comments HEMOGLOBIN A1c (test code = 51053) 5.5 % HEMOGLOBIN [id number] 00:00:00 Test Item Value Reference Range Interpretation Comments HEMOGLOBIN A1c (test code = 14077) 5.5 % HEMOGLOBIN [id number] 00:00:00 Test Item Value Reference Range Interpretation Comments HEMOGLOBIN A1c (test code = 71178) 5.5 % [id number] 00:00:00 Test Item Value Reference Range Interpretation Comments TSH, THIRD GENERATION (test >100.000 UIU/ML code = 2821) [id number] 00:00:00 Test Item Value Reference Range Interpretation Comments TSH, THIRD GENERATION (test >100.000 UIU/ML code = 2821) [id number] 00:00:00 Test Item Value Reference Range Interpretation Comments TSH, THIRD GENERATION (test >100.000 UIU/ML code = 2821) HEMOGLOBIN [id number] 00:00:00 Test Item Value Reference Range Interpretation Comments HEMOGLOBIN A1c (test code = 85991) 5.5 % HEMOGLOBIN [id number] 00:00:00 Test Item Value Reference Range Interpretation Comments HEMOGLOBIN A1c (test code = 74163) 5.5 % [id number] 00:00:00 Test Item Value Reference Range Interpretation Comments TSH, THIRD GENERATION (test >100.000 UIU/ML code = 2821) [id number] 00:00:00 Test Item Value Reference Range Interpretation Comments TSH, THIRD GENERATION (test >100.000 UIU/ML code = 2821) HEMOGLOBIN [id number] 00:00:00 Test Item Value Reference Range Interpretation Comments HEMOGLOBIN A1c (test code = 82454) 5.5 % HEMOGLOBIN [id number] 00:00:00 Test Item Value Reference Range Interpretation Comments HEMOGLOBIN A1c (test code = 35265) 5.5 % HEMOGLOBIN [id number] 00:00:00 Test Item Value Reference Range Interpretation Comments HEMOGLOBIN A1c (test code = 16181) 5.5 % [id number] 00:00:00 Test Item Value Reference Range Interpretation Comments TSH, THIRD GENERATION (test >100.000 UIU/ML code = 2821) [id number] 00:00:00 Test Item Value Reference Range Interpretation Comments TSH, THIRD GENERATION (test >100.000 UIU/ML code = 2821) [id number] 00:00:00 Test Item Value Reference Range Interpretation Comments TSH, THIRD GENERATION (test >100.000 UIU/ML code = 2821) HEMOGLOBIN [id number] 00:00:00 Test Item Value Reference Range Interpretation Comments HEMOGLOBIN A1c (test code = 04970) 5.5 % HEMOGLOBIN [id number] 00:00:00 Test Item Value Reference Range Interpretation Comments HEMOGLOBIN A1c (test code = 96452) 5.5 % HEMOGLOBIN [id number] 00:00:00 Test Item Value Reference Range Interpretation Comments HEMOGLOBIN A1c (test code = 06363) 5.5 % [id number] 00:00:00 Test Item Value Reference Range Interpretation Comments TSH, THIRD GENERATION (test >100.000 UIU/ML code = 2821) [id number] 00:00:00 Test Item Value Reference Range Interpretation Comments TSH, THIRD GENERATION (test >100.000 UIU/ML code = 2821) [id number] 00:00:00 Test Item Value Reference Range Interpretation Comments TSH, THIRD GENERATION (test >100.000 UIU/ML code = 2821) [id number] 00:00:00 Test Item Value Reference Range Interpretation Comments TSH, THIRD GENERATION (test >100.000 UIU/ML code = 2821) [id number] 00:00:00 Test Item Value Reference Range Interpretation Comments TSH, THIRD GENERATION (test >100.000 UIU/ML code = 2821) [id number] 00:00:00 Test Item Value Reference Range Interpretation Comments TSH, THIRD GENERATION (test >100.000 UIU/ML code = 2821) CBC W/AUTO [id number] 00:00:00 Test Item Value Reference Range Interpretation [...] code = 1015) 298 K/UL CBC W/AUTO [id number] 00:00:00 Test Item Value Reference Range Interpretation [...] code = 1015) 298 K/UL CBC W/AUTO [id number] 00:00:00 Test Item Value Reference Range Interpretation [...] code = 1015) 298 K/UL COMPREHENSIVE METABOLIC [id number] 00:00:00 Test Item Value Reference Range Interpretation Comments GLUCOSE (test code = 2217) 228 MG/DL BUN (test code = 2208) 23 MG/DL CREATININE (test code = 2214) 5.99 MG/DL eGFR AMER. (test code 11 ML/MIN/1.73 = 28319) eGFR NON- AMER. (test 10 ML/MIN/1.73 code = 23385) CALC BUN/CREAT (test code = 4 RATIO 2235) SODIUM (test code = 2231) 137 MEQ/L POTASSIUM (test code = 2228) 3.7 MEQ/L CHLORIDE (test code = 2215) 91 MEQ/L CARBON DIOXIDE (test code = 29 MEQ/L 2205) CALCIUM (test code = 2209) 9.7 MG/DL PROTEIN, TOTAL (test code = 8.5 G/DL 2228) ALBUMIN (test code = 2201) 5.3 G/DL CALC GLOBULIN (test code = 3.2 G/DL 2240) CALC A/G RATIO (test code = 1.7 RATIO 2234) BILIRUBIN, TOTAL (test code = 0.3 MG/DL 2206) ALKALINE PHOSPHATASE (test 66 U/L code = 2204) AST (test code = 2218) 22 U/L ALT (test code = 2219) 24 U/L COMPREHENSIVE METABOLIC [id number] 00:00:00 Test Item Value Reference Range Interpretation Comments GLUCOSE (test code = 2217) 228 MG/DL BUN (test code = 2208) 23 MG/DL CREATININE (test code = 2214) 5.99 MG/DL eGFR AMER. (test code 11 ML/MIN/1.73 = 25242) eGFR NON- AMER. (test 10 ML/MIN/1.73 code = 40147) CALC BUN/CREAT (test code = 4 RATIO 2235) SODIUM (test code = 2231) 137 MEQ/L POTASSIUM (test code = 2228) 3.7 MEQ/L CHLORIDE (test code = 2215) 91 MEQ/L CARBON DIOXIDE (test code = 29 MEQ/L 2205) CALCIUM (test code = 2209) 9.7 MG/DL PROTEIN, TOTAL (test code = 8.5 G/DL 2228) ALBUMIN (test code = 2201) 5.3 G/DL CALC GLOBULIN (test code = 3.2 G/DL 2240) CALC A/G RATIO (test code = 1.7 RATIO 2234) BILIRUBIN, TOTAL (test code = 0.3 MG/DL 2206) ALKALINE PHOSPHATASE (test 66 U/L code = 2204) AST (test code = 2218) 22 U/L ALT (test code = 2219) 24 U/L LIPID [id number] 00:00:00 Test Item Value Reference Range Interpretation Comments CHOLESTEROL (test code = 2210) 335 MG/DL TRIGLYCERIDES (test code = 2232) 446 MG/DL HDL CHOLESTEROL (test code = 73 MG/DL 2220) CALC LDL CHOL (test code = 2237) (NOTE) MG/DL RISK RATIO LDL/HDL (test code = (NOTE) RATIO 2238) LIPID [id number] 00:00:00 Test Item Value Reference Range Interpretation Comments CHOLESTEROL (test code = 2210) 335 MG/DL TRIGLYCERIDES (test code = 2232) 446 MG/DL HDL CHOLESTEROL (test code = 73 MG/DL 2220) CALC LDL CHOL (test code = 2237) (NOTE) MG/DL RISK RATIO LDL/HDL (test code = (NOTE) RATIO 2238) [id number] 00:00:00 Test Item Value Reference Range Interpretation Comments TSH, THIRD GENERATION (test >100.000 UIU/ML code = 2821) [id number] 00:00:00 Test Item Value Reference Range Interpretation Comments TSH, THIRD GENERATION (test >100.000 UIU/ML code = 2821) [id number] 00:00:00 Test Item Value Reference Range Interpretation Comments TSH, THIRD GENERATION (test >100.000 UIU/ML code = 2821) CBC W/AUTO [id number] 00:00:00 Test Item Value Reference Range Interpretation [...] code = 1015) 298 K/UL CBC W/AUTO [id number] 00:00:00 Test Item Value Reference Range Interpretation [...] code = 1015) 298 K/UL CBC W/AUTO [id number] 00:00:00 Test Item Value Reference Range Interpretation [...] code = 1015) 298 K/UL COMPREHENSIVE METABOLIC [id number] 00:00:00 Test Item Value Reference Range Interpretation Comments GLUCOSE (test code = 2217) 228 MG/DL BUN (test code = 2208) 23 MG/DL CREATININE (test code = 2214) 5.99 MG/DL eGFR AMER. (test code 11 ML/MIN/1.73 = 75795) eGFR NON- AMER. (test 10 ML/MIN/1.73 code = 04279) CALC BUN/CREAT (test code = 4 RATIO [...] = 0.3 MG/DL 2206) ALKALINE PHOSPHATASE (test 66 U/L code = 2204) AST (test code = 2218) 22 U/L ALT (test code = 2219) 24 U/L COMPREHENSIVE METABOLIC [id number] 00:00:00 Test Item Value Reference Range Interpretation Comments GLUCOSE (test code = 2217) 228 MG/DL BUN (test code = 2208) 23 MG/DL CREATININE (test code = 2214) 5.99 MG/DL eGFR AMER. (test code 11 ML/MIN/1.73 = 47140) eGFR NON- AMER. (test 10 ML/MIN/1.73 code = 13819) CALC BUN/CREAT (test code = 4 RATIO 2235) SODIUM (test code = 2231) 137 MEQ/L POTASSIUM (test code = 2228) 3.7 MEQ/L CHLORIDE (test code = 2215) 91 MEQ/L CARBON DIOXIDE (test code = 29 MEQ/L 2205) CALCIUM (test code = 2209) 9.7 MG/DL PROTEIN, TOTAL (test code = 8.5 G/DL 2228) ALBUMIN (test code = 2201) 5.3 G/DL CALC GLOBULIN (test code = 3.2 G/DL 2240) CALC A/G RATIO (test code = 1.7 RATIO 2234) BILIRUBIN, TOTAL (test code = 0.3 MG/DL 2206) ALKALINE PHOSPHATASE (test 66 U/L code = 2204) AST (test code = 2218) 22 U/L ALT (test code = 2219) 24 U/L LIPID [id number] 00:00:00 Test Item Value Reference Range Interpretation Comments CHOLESTEROL (test code = 2210) 335 MG/DL TRIGLYCERIDES (test code = 2232) 446 MG/DL HDL CHOLESTEROL (test code = 73 MG/DL 2220) CALC LDL CHOL (test code = 2237) (NOTE) MG/DL RISK RATIO LDL/HDL (test code = (NOTE) RATIO 2238) LIPID [id number] 00:00:00 Test Item Value Reference Range Interpretation Comments CHOLESTEROL (test code = 2210) 335 MG/DL TRIGLYCERIDES (test code = 2232) 446 MG/DL HDL CHOLESTEROL (test code = 73 MG/DL 2220) CALC LDL CHOL (test code = 2237) (NOTE) MG/DL RISK RATIO LDL/HDL (test code = (NOTE) RATIO 2238) [id number] 00:00:00 Test Item Value Reference Range Interpretation Comments TSH, THIRD GENERATION (test >100.000 UIU/ML code = 2821) [id number] 00:00:00 Test Item Value Reference Range Interpretation Comments TSH, THIRD GENERATION (test >100.000 UIU/ML code = 2821) [id number] 00:00:00 Test Item Value Reference Range Interpretation Comments TSH, THIRD GENERATION (test >100.000 UIU/ML code = 2821) CBC W/AUTO [id number] 00:00:00 Test Item Value Reference Range Interpretation [...] code = 1015) 298 K/UL CBC W/AUTO [id number] 00:00:00 Test Item Value Reference Range Interpretation [...] code = 1015) 298 K/UL COMPREHENSIVE METABOLIC [id number] 00:00:00 Test Item Value Reference Range Interpretation Comments GLUCOSE (test code = 2217) 228 MG/DL BUN (test code = 2208) 23 MG/DL CREATININE (test code = 2214) 5.99 MG/DL eGFR AMER. (test code 11 ML/MIN/1.73 = 43994) eGFR NON- AMER. (test 10 ML/MIN/1.73 code = 52083) CALC BUN/CREAT (test code = 4 RATIO [...] (test code = 2219) 24 U/L LIPID [id number] 00:00:00 Test Item Value Reference Range Interpretation Comments CHOLESTEROL (test code = 2210) 335 MG/DL TRIGLYCERIDES (test code = 2232) 446 MG/DL HDL CHOLESTEROL (test code = 73 MG/DL 2220) CALC LDL CHOL (test code = 2237) (NOTE) MG/DL RISK RATIO LDL/HDL (test code = (NOTE) RATIO 2238) [id number] 00:00:00 Test Item Value Reference Range Interpretation Comments TSH, THIRD GENERATION (test >100.000 UIU/ML code = 2821) [id number] 00:00:00 Test Item Value Reference Range Interpretation Comments TSH, THIRD GENERATION (test >100.000 UIU/ML code = 2821) CBC W/AUTO [id number] 00:00:00 Test Item Value Reference Range Interpretation [...] code = 1015) 298 K/UL CBC W/AUTO [id number] 00:00:00 Test Item Value Reference Range Interpretation [...] code = 1015) 298 K/UL CBC W/AUTO [id number] 00:00:00 Test Item Value Reference Range Interpretation [...] code = 1015) 298 K/UL COMPREHENSIVE METABOLIC [id number] 00:00:00 Test Item Value Reference Range Interpretation Comments GLUCOSE (test code = 2217) 228 MG/DL BUN (test code = 2208) 23 MG/DL CREATININE (test code = 2214) 5.99 MG/DL eGFR AMER. (test code 11 ML/MIN/1.73 = 18236) eGFR NON- AMER. (test 10 ML/MIN/1.73 code = 49441) CALC BUN/CREAT (test code = 4 RATIO [...] = 0.3 MG/DL 2206) ALKALINE PHOSPHATASE (test 66 U/L code = 2204) AST (test code = 2218) 22 U/L ALT (test code = 2219) 24 U/L COMPREHENSIVE METABOLIC [id number] 00:00:00 Test Item Value Reference Range Interpretation Comments GLUCOSE (test code = 2217) 228 MG/DL BUN (test code = 2208) 23 MG/DL CREATININE (test code = 2214) 5.99 MG/DL eGFR AMER. (test code 11 ML/MIN/1.73 = 75883) eGFR NON- AMER. (test 10 ML/MIN/1.73 code = 38035) CALC BUN/CREAT (test code = 4 RATIO 2235) SODIUM (test code = 2231) 137 MEQ/L POTASSIUM (test code = 2228) 3.7 MEQ/L CHLORIDE (test code = 2215) 91 MEQ/L CARBON DIOXIDE (test code = 29 MEQ/L 2205) CALCIUM (test code = 2209) 9.7 MG/DL PROTEIN, TOTAL (test code = 8.5 G/DL 2228) ALBUMIN (test code = 2201) 5.3 G/DL CALC GLOBULIN (test code = 3.2 G/DL 2239) CALC A/G RATIO (test code = 1.7 RATIO 2233) BILIRUBIN, TOTAL (test code = 0.3 MG/DL 2206) ALKALINE PHOSPHATASE (test 66 U/L code = 2204) AST (test code = 2218) 22 U/L ALT (test code = 2219) 24 U/L LIPID [id number] 00:00:00 Test Item Value Reference Range Interpretation Comments CHOLESTEROL (test code = 2210) 335 MG/DL TRIGLYCERIDES (test code = 2232) 446 MG/DL HDL CHOLESTEROL (test code = 73 MG/DL 2220) CALC LDL CHOL (test code = 2237) (NOTE) MG/DL RISK RATIO LDL/HDL (test code = (NOTE) RATIO 2238) LIPID [id number] 00:00:00 Test Item Value Reference Range Interpretation Comments CHOLESTEROL (test code = 2210) 335 MG/DL TRIGLYCERIDES (test code = 2232) 446 MG/DL HDL CHOLESTEROL (test code = 73 MG/DL 2220) CALC LDL CHOL (test code = 2237) (NOTE) MG/DL RISK RATIO LDL/HDL (test code = (NOTE) RATIO 2238) [id number] 00:00:00 Test Item Value Reference Range Interpretation Comments TSH, THIRD GENERATION (test >100.000 UIU/ML code = 2821) [id number] 00:00:00 Test Item Value Reference Range Interpretation Comments TSH, THIRD GENERATION (test >100.000 UIU/ML code = 2821) [id number] 00:00:00 Test Item Value Reference Range Interpretation Comments TSH, THIRD GENERATION (test >100.000 UIU/ML code = 2821) CBC W/AUTO [id number] 00:00:00 Test Item Value Reference Range Interpretation [...] code = 1015) 298 K/UL CBC W/AUTO [id number] 00:00:00 Test Item Value Reference Range Interpretation [...] code = 1015) 298 K/UL CBC W/AUTO [id number] 00:00:00 Test Item Value Reference Range Interpretation [...] code = 1015) 298 K/UL COMPREHENSIVE METABOLIC [id number] 00:00:00 Test Item Value Reference Range Interpretation Comments GLUCOSE (test code = 2217) 228 MG/DL BUN (test code = 2208) 23 MG/DL CREATININE (test code = 2214) 5.99 MG/DL eGFR AMER. (test code 11 ML/MIN/1.73 = 41065) eGFR NON- AMER. (test 10 ML/MIN/1.73 code = 92747) CALC BUN/CREAT (test code = 4 RATIO [...] = 0.3 MG/DL 2206) ALKALINE PHOSPHATASE (test 66 U/L code = 2204) AST (test code = 2218) 22 U/L ALT (test code = 2219) 24 U/L COMPREHENSIVE METABOLIC [id number] 00:00:00 Test Item Value Reference Range Interpretation Comments GLUCOSE (test code = 2217) 228 MG/DL BUN (test code = 2208) 23 MG/DL CREATININE (test code = 2214) 5.99 MG/DL eGFR AMER. (test code 11 ML/MIN/1.73 = 39233) eGFR NON- AMER. (test 10 ML/MIN/1.73 code = 95611) CALC BUN/CREAT (test code = 4 RATIO 2235) SODIUM (test code = 2231) 137 MEQ/L POTASSIUM (test code = 2228) 3.7 MEQ/L CHLORIDE (test code = 2215) 91 MEQ/L CARBON DIOXIDE (test code = 29 MEQ/L 2205) CALCIUM (test code = 2209) 9.7 MG/DL PROTEIN, TOTAL (test code = 8.5 G/DL 2228) ALBUMIN (test code = 2201) 5.3 G/DL CALC GLOBULIN (test code = 3.2 G/DL 224) CALC A/G RATIO (test code = 1.7 RATIO 4) BILIRUBIN, TOTAL (test code = 0.3 MG/DL 2206) ALKALINE PHOSPHATASE (test 66 U/L code = 2204) AST (test code = 2218) 22 U/L ALT (test code = 2219) 24 U/L LIPID [id number] 00:00:00 Test Item Value Reference Range Interpretation Comments CHOLESTEROL (test code = 2210) 335 MG/DL TRIGLYCERIDES (test code = 2232) 446 MG/DL HDL CHOLESTEROL (test code = 73 MG/DL 2220) CALC LDL CHOL (test code = 2237) (NOTE) MG/DL RISK RATIO LDL/HDL (test code = (NOTE) RATIO 2238) LIPID [id number] 00:00:00 Test Item Value Reference Range Interpretation Comments CHOLESTEROL (test code = 2210) 335 MG/DL TRIGLYCERIDES (test code = 2232) 446 MG/DL HDL CHOLESTEROL (test code = 73 MG/DL 2220) CALC LDL CHOL (test code = 2237) (NOTE) MG/DL RISK RATIO LDL/HDL (test code = (NOTE) RATIO 2238) [id number] 00:00:00 Test Item Value Reference Range Interpretation Comments TSH, THIRD GENERATION (test >100.000 UIU/ML code = 2821) [id number] 00:00:00 Test Item Value Reference Range Interpretation Comments TSH, THIRD GENERATION (test >100.000 UIU/ML code = 2821) [id number] 00:00:00 Test Item Value Reference Range Interpretation Comments TSH, THIRD GENERATION (test >100.000 UIU/ML code = 2821) LIPID [id number] 00:00:00 Test Item Value Reference Range Interpretation Comments CHOLESTEROL (test code = 2210) 316 MG/DL TRIGLYCERIDES (test code = 2232) 547 MG/DL HDL CHOLESTEROL (test code = 54 MG/DL 2220) CALC LDL CHOL (test code = 2237) (NOTE) MG/DL RISK RATIO LDL/HDL (test code = (NOTE) RATIO 2238) LIPID [id number] 00:00:00 Test Item Value Reference Range Interpretation Comments CHOLESTEROL (test code = 2210) 316 MG/DL TRIGLYCERIDES (test code = 2232) 547 MG/DL HDL CHOLESTEROL (test code = 54 MG/DL 2220) CALC LDL CHOL (test code = 2237) (NOTE) MG/DL RISK RATIO LDL/HDL (test code = (NOTE) RATIO 2238) [id number] 00:00:00 Test Item Value Reference Range Interpretation Comments TSH, THIRD GENERATION (test >100.000 UIU/ML code = 2821) [id number] 00:00:00 Test Item Value Reference Range Interpretation Comments TSH, THIRD GENERATION (test >100.000 UIU/ML code = 2821) [id number] 00:00:00 Test Item Value Reference Range Interpretation Comments TSH, THIRD GENERATION (test >100.000 UIU/ML code = 2821) LIPID [id number] 00:00:00 Test Item Value Reference Range Interpretation Comments CHOLESTEROL (test code = 2210) 316 MG/DL TRIGLYCERIDES (test code = 2232) 547 MG/DL HDL CHOLESTEROL (test code = 54 MG/DL 2220) CALC LDL CHOL (test code = 2237) (NOTE) MG/DL RISK RATIO LDL/HDL (test code = (NOTE) RATIO 2238) LIPID [id number] 00:00:00 Test Item Value Reference Range Interpretation Comments CHOLESTEROL (test code = 2210) 316 MG/DL TRIGLYCERIDES (test code = 2232) 547 MG/DL HDL CHOLESTEROL (test code = 54 MG/DL 2220) CALC LDL CHOL (test code = 2237) (NOTE) MG/DL RISK RATIO LDL/HDL (test code = (NOTE) RATIO 2238) [id number] 00:00:00 Test Item Value Reference Range Interpretation Comments TSH, THIRD GENERATION (test >100.000 UIU/ML code = 2821) [id number] 00:00:00 Test Item Value Reference Range Interpretation Comments TSH, THIRD GENERATION (test >100.000 UIU/ML code = 2821) LIPID [id number] 00:00:00 Test Item Value Reference Range Interpretation Comments CHOLESTEROL (test code = 2210) 316 MG/DL TRIGLYCERIDES (test code = 2232) 547 MG/DL HDL CHOLESTEROL (test code = 54 MG/DL 2220) CALC LDL CHOL (test code = 2237) (NOTE) MG/DL RISK RATIO LDL/HDL (test code = (NOTE) RATIO 2238) [id number] 00:00:00 Test Item Value Reference Range Interpretation Comments TSH, THIRD GENERATION (test >100.000 UIU/ML code = 2821) [id number] 00:00:00 Test Item Value Reference Range Interpretation Comments TSH, THIRD GENERATION (test >100.000 UIU/ML code = 2821) [id number] 00:00:00 Test Item Value Reference Range Interpretation Comments TSH, THIRD GENERATION (test >100.000 UIU/ML code = 2821) LIPID [id number] 00:00:00 Test Item Value Reference Range Interpretation Comments CHOLESTEROL (test code = 2210) 316 MG/DL TRIGLYCERIDES (test code = 2232) 547 MG/DL HDL CHOLESTEROL (test code = 54 MG/DL 2220) CALC LDL CHOL (test code = 2237) (NOTE) MG/DL RISK RATIO LDL/HDL (test code = (NOTE) RATIO 2238) LIPID [id number] 00:00:00 Test Item Value Reference Range Interpretation Comments CHOLESTEROL (test code = 2210) 316 MG/DL TRIGLYCERIDES (test code = 2232) 547 MG/DL HDL CHOLESTEROL (test code = 54 MG/DL 2220) CALC LDL CHOL (test code = 2237) (NOTE) MG/DL RISK RATIO LDL/HDL (test code = (NOTE) RATIO 2238) [id number] 00:00:00 Test Item Value Reference Range Interpretation Comments TSH, THIRD GENERATION (test >100.000 UIU/ML code = 2821) [id number] 00:00:00 Test Item Value Reference Range Interpretation Comments TSH, THIRD GENERATION (test >100.000 UIU/ML code = 2821) [id number] 00:00:00 Test Item Value Reference Range Interpretation Comments TSH, THIRD GENERATION (test >100.000 UIU/ML code = 2821) LIPID [id number] 00:00:00 Test Item Value Reference Range Interpretation Comments CHOLESTEROL (test code = 2210) 316 MG/DL TRIGLYCERIDES (test code = 2232) 547 MG/DL HDL CHOLESTEROL (test code = 54 MG/DL 2220) CALC LDL CHOL (test code = 2237) (NOTE) MG/DL RISK RATIO LDL/HDL (test code = (NOTE) RATIO 2238) LIPID [id number] 00:00:00 Test Item Value Reference Range Interpretation [...] code = Normal 762) HEPATITIS B SURFACE [id number] 09:48:00 Test Item Value Reference Range Interpretation Comments HEPATITIS B SURFACE ANTIGEN (2) Nonreactive Nonreactive (BEAKER) (test code = 2585) Specimen is considered negative for HBsAg.(CELLAVISION MANUAL DIFF)2019-12-16 08:57:00 Test Item Value Reference Range Interpretation Comments NEUTROPHILS - REL 71 % (CELLAVISION)(BEAKER) (test code = 2816) LYMPHOCYTES - REL 17 % (CELLAVISION)(BEAKER) (test code = 281) MONOCYTES - REL 7 % (CELLAVISION)(BEAKER) (test [...] (BEAKER) (test code = 1+ few 966) [id number] 05:55:00 Test Item Value Reference Range Interpretation Comments PHOSPHORUS (BEAKER) (test code = 9.2 mg/dL 2.3-4.7 HH 604) Techn[employer] ID - RA MBASIC METABOLIC [id number] 05:04:00 Test Item Value Reference Range Interpretation [...] S NOT APPLICABLE FOR DIALYSIS PATIEN TS. Technician Test [employer] ID - RA MCBC WITH PLATELET COUNT + MANUAL [id number] 04:42:00 Test Item Value Reference Range Interpretation [...] (BEAKER) (test code = 413) BASIC METABOLIC [id number] 03:00:00 Test Item Value Reference Range Interpretation [...] S NOT APPLICABLE FOR DIALYSIS PATIEN TS. Technician [employer] ID - RA [id number] 02:58:00 Test Item Value Reference Range Interpretation Comments PHOSPHORUS (BEAKER) (test code = 7.4 mg/dL 2.3-4.7 H 604) Technician [employer] ID - RA MCBC W/PLT COUNT & AUTO [id number] 02:38:00 Test Item Value Reference Range Interpretation [...] PERCENT (BEAKER) (test code = 2801) SARS-COV2/RT-PCR ([facility])2019-12-14 11:10:00 Test Item Value Reference Range Interpretation Comments SARS-COV2/RT-PCR (test code Negative Not Detected, Negative, = 0609447) See external report for linked test SARS-COV-2 PERFORMING LAB [facility] (test code = 4398733) Negative results do not preclude SARS-CoV-2 infection [...] of the Act.Fact Sheet for Healthcare Pro viders:https://www.[employer]/Documents/Xpert%20Xpress%20SARS%20CoV-2/Fact%20Sh eets/302-3802%74NXVQ-JDW-7%20HEALTHCARE%20PROVIDERS%20FACT%20SHEET.pdfFact Sheet for Healthcare Patients:https://www.[employer]/Documents/Xpert%20Xpress%20SARS%20CoV-2/Fact%20Sheets/3023801%20SARS-COV -2%20PATIENT%20FACT%20SHEET.pdfPerforming Laboratory:[facility] [address], [place] [address]PIGLC METABOLIC [id number] 09:53:00 Test Item Value Reference Range Interpretation [...] S NOT APPLICABLE FOR DIALYSIS PATIEN TS. Technician Test Systems ID - ROSIANGPROTHROMBIN [id number] 09:39:00 Test Item Value Reference Range Interpretation [...] 0-0 (BEAKER) (test code = 413) URINE [id number] 11:01:00 Test Item Value Reference Range Interpretation Comments CULTURE (BEAKER) ENTEROCOCCUS A 40-49,000 c ol/mL (test code = 1095) FAECALIS Enterococ cus faecalis Ampicillin (test S code = 26) Linezolid (test code S = 40) Nitrofurantoin (test S code = 23) Tetracycline (test R code = 2) Vancomycin (test S code = 13) <10,000 col/mL skin floraTHYROID II PROFILE (TU,T4,FTI,TSH) [ADDED]2019-10-26 00:00:00 Test Item Value Reference Range Interpretation Comments T-UPTAKE (test code = 2817) 18.4 % THYROX. BIND. CAPAC. (test 1.5 code = 14293) T4 (THYROXINE) (test code = <1.2 UG/DL 2819) CORRECTED T4 (FTI) (test code (NOTE) UG/DL = 2820) TSH, THIRD GENERATION (test >100.000 UIU/ML code = 2821) THYROID II PROFILE (TU,T4,FTI,TSH) [ADDED]2019-10-26 00:00:00 Test Item Value Reference Range Interpretation Comments T-UPTAKE (test code = 2817) 18.4 % THYROX. BIND. CAPAC. (test 1.5 code = 63885) T4 (THYROXINE) (test code = <1.2 UG/DL 2819) CORRECTED T4 (FTI) (test code (NOTE) UG/DL = 2820) TSH, THIRD GENERATION (test >100.000 UIU/ML code = 2821) HEMOGLOBIN [id number] 00:00:00 Test Item Value Reference Range Interpretation Comments HEMOGLOBIN A1c (test code = 20711) 6.9 % HEMOGLOBIN [id number] 00:00:00 Test Item Value Reference Range Interpretation Comments HEMOGLOBIN A1c (test code = 53209) 6.9 % HEMOGLOBIN [id number] 00:00:00 Test Item Value Reference Range Interpretation Comments HEMOGLOBIN A1c (test code = 50663) 6.9 % LIPID [id number] 00:00:00 Test Item Value Reference Range Interpretation Comments CHOLESTEROL (test code = 2210) 309 MG/DL TRIGLYCERIDES (test code = 2232) 587 MG/DL HDL CHOLESTEROL (test code = 48 MG/DL 2220) CALC LDL CHOL (test code = 2237) (NOTE) MG/DL RISK RATIO LDL/HDL (test code = (NOTE) RATIO 2238) LIPID [id number] 00:00:00 Test Item Value Reference Range Interpretation [...] THYROX. BIND. CAPAC. (test 1.5 code = 08761) T4 (THYROXINE) (test code = <1.2 UG/DL 2819) CORRECTED T4 (FTI) (test code (NOTE) UG/DL = 2820) TSH, THIRD GENERATION (test >100.000 UIU/ML code = 2821) THYROID II PROFILE (TU,T4,FTI,TSH) [ADDED]2019-10-26 00:00:00 Test Item Value Reference Range Interpretation Comments T-UPTAKE (test code = 2817) 18.4 % THYROX. BIND. CAPAC. (test 1.5 code = 09456) T4 (THYROXINE) (test code = <1.2 UG/DL 2819) CORRECTED T4 (FTI) (test code (NOTE) UG/DL = 2820) TSH, THIRD GENERATION (test >100.000 UIU/ML code = 2821) HEMOGLOBIN [id number] 00:00:00 Test Item Value Reference Range Interpretation Comments HEMOGLOBIN A1c (test code = 02439) 6.9 % HEMOGLOBIN [id number] 00:00:00 Test Item Value Reference Range Interpretation Comments HEMOGLOBIN A1c (test code = 35524) 6.9 % HEMOGLOBIN [id number] 00:00:00 Test Item Value Reference Range Interpretation Comments HEMOGLOBIN A1c (test code = 80536) 6.9 % LIPID [id number] 00:00:00 Test Item Value Reference Range Interpretation Comments CHOLESTEROL (test code = 2210) 309 MG/DL TRIGLYCERIDES (test code = 2232) 587 MG/DL HDL CHOLESTEROL (test code = 48 MG/DL 2220) CALC LDL CHOL (test code = 2237) (NOTE) MG/DL RISK RATIO LDL/HDL (test code = (NOTE) RATIO 2238) LIPID [id number] 00:00:00 Test Item Value Reference Range Interpretation [...] THYROX. BIND. CAPAC. (test 1.5 code = 47333) T4 (THYROXINE) (test code = <1.2 UG/DL 2819) CORRECTED T4 (FTI) (test code (NOTE) UG/DL = 2820) TSH, THIRD GENERATION (test >100.000 UIU/ML code = 2821) THYROID II PROFILE (TU,T4,FTI,TSH) [ADDED]2019-10-26 00:00:00 Test Item Value Reference Range Interpretation Comments T-UPTAKE (test code = 2817) 18.4 % THYROX. BIND. CAPAC. (test 1.5 code = 33041) T4 (THYROXINE) (test code = <1.2 UG/DL 2819) CORRECTED T4 (FTI) (test code (NOTE) UG/DL = 2820) TSH, THIRD GENERATION (test >100.000 UIU/ML code = 2821) HEMOGLOBIN [id number] 00:00:00 Test Item Value Reference Range Interpretation Comments HEMOGLOBIN A1c (test code = 75702) 6.9 % HEMOGLOBIN [id number] 00:00:00 Test Item Value Reference Range Interpretation Comments HEMOGLOBIN A1c (test code = 67698) 6.9 % LIPID [id number] 00:00:00 Test Item Value Reference Range Interpretation [...] THYROX. BIND. CAPAC. (test 1.5 code = 22236) T4 (THYROXINE) (test code = <1.2 UG/DL 2819) CORRECTED T4 (FTI) (test code (NOTE) UG/DL = 2820) TSH, THIRD GENERATION (test >100.000 UIU/ML code = 2821) HEMOGLOBIN [id number] 00:00:00 Test Item Value Reference Range Interpretation Comments HEMOGLOBIN A1c (test code = 89778) 6.9 % HEMOGLOBIN [id number] 00:00:00 Test Item Value Reference Range Interpretation Comments HEMOGLOBIN A1c (test code = 98031) 6.9 % HEMOGLOBIN [id number] 00:00:00 Test Item Value Reference Range Interpretation Comments HEMOGLOBIN A1c (test code = 56827) 6.9 % LIPID [id number] 00:00:00 Test Item Value Reference Range Interpretation Comments CHOLESTEROL (test code = 2210) 309 MG/DL TRIGLYCERIDES (test code = 2232) 587 MG/DL HDL CHOLESTEROL (test code = 48 MG/DL 2220) CALC LDL CHOL (test code = 2237) (NOTE) MG/DL RISK RATIO LDL/HDL (test code = (NOTE) RATIO 2238) LIPID [id number] 00:00:00 Test Item Value Reference Range Interpretation [...] THYROX. BIND. CAPAC. (test 1.5 code = 47802) T4 (THYROXINE) (test code = <1.2 UG/DL 2819) CORRECTED T4 (FTI) (test code (NOTE) UG/DL = 2820) TSH, THIRD GENERATION (test >100.000 UIU/ML code = 2821) THYROID II PROFILE (TU,T4,FTI,TSH) [ADDED]2019-10-26 00:00:00 Test Item Value Reference Range Interpretation Comments T-UPTAKE (test code = 2817) 18.4 % THYROX. BIND. CAPAC. (test 1.5 code = 08878) T4 (THYROXINE) (test code = <1.2 UG/DL 2819) CORRECTED T4 (FTI) (test code (NOTE) UG/DL = 2820) TSH, THIRD GENERATION (test >100.000 UIU/ML code = 2821) HEMOGLOBIN [id number] 00:00:00 Test Item Value Reference Range Interpretation Comments HEMOGLOBIN A1c (test code = 78247) 6.9 % HEMOGLOBIN [id number] 00:00:00 Test Item Value Reference Range Interpretation Comments HEMOGLOBIN A1c (test code = 52129) 6.9 % HEMOGLOBIN [id number] 00:00:00 Test Item Value Reference Range Interpretation Comments HEMOGLOBIN A1c (test code = 47126) 6.9 % LIPID [id number] 00:00:00 Test Item Value Reference Range Interpretation Comments CHOLESTEROL (test code = 2210) 309 MG/DL TRIGLYCERIDES (test code = 2232) 587 MG/DL HDL CHOLESTEROL (test code = 48 MG/DL 0) CALC LDL CHOL (test code = 2237) (NOTE) MG/DL RISK RATIO LDL/HDL (test code = (NOTE) RATIO 2238) LIPID [id number] 00:00:00 Test Item Value Reference Range Interpretation Comments CHOLESTEROL (test code = 2210) 309 MG/DL TRIGLYCERIDES (test code = 2232) 587 MG/DL HDL CHOLESTEROL (test code = 48 MG/DL 2220) CALC LDL CHOL (test code = 2237) (NOTE) MG/DL RISK RATIO LDL/HDL (test code = (NOTE) RATIO 2238) HEMOGLOBIN [id number] 09:52:00 Test Item Value Reference Range Interpretation Comments HEMOGLOBIN A1C (BEAKER) (test code = 6.6 % 4.3-6.1 H 368) Technician Test Systems ID - [id number] 09:08:00 Test Item Value Reference Range Interpretation Comments PROSTATE SPECIFIC ANTIGEN (BEAKER) 0.5 ng/mL 0.0-4.0 (test code = 844) Technician Test Systems ID - PITER URBINAID [id number] 08:00:00 Test Item Value Reference Range Interpretation [...] Borderline 130-159 High 160-189 Very High >=190 Technician Test Systems ID - CHUCHO CTHYROID II PROFILE (T3U, T4, T7, TSH)2019-07-05 00:00:00 Test Item Value Reference Range Interpretation Comments T-UPTAKE (test code = 2817) 24.3 % THYROX. BIND. CAPAC. (test 1.3 code = 78075) T4 (THYROXINE) (test code = 3.6 UG/DL 2819) CORRECTED T4 (FTI) (test code 2.8 UG/DL = 2820) TSH, THIRD GENERATION (test >100.000 UIU/ML code = 2821) THYROID II PROFILE (T3U, T4, T7, TSH)2019-07-05 00:00:00 Test Item Value Reference Range Interpretation Comments T-UPTAKE (test code = 2817) 24.3 % THYROX. BIND. CAPAC. (test 1.3 code = 48988) T4 (THYROXINE) (test code = 3.6 UG/DL 2819) CORRECTED T4 (FTI) (test code 2.8 UG/DL = 2820) TSH, THIRD GENERATION (test >100.000 UIU/ML code = 2821) THYROID II PROFILE (T3U, T4, T7, TSH)2019-07-05 00:00:00 Test Item Value Reference Range Interpretation Comments T-UPTAKE (test code = 2817) 24.3 % THYROX. BIND. CAPAC. (test 1.3 code = 59510) T4 (THYROXINE) (test code = 3.6 UG/DL 2819) CORRECTED T4 (FTI) (test code 2.8 UG/DL = 2820) TSH, THIRD GENERATION (test >100.000 UIU/ML code = 2821) THYROID II PROFILE (T3U, T4, T7, TSH)2019-07-05 00:00:00 Test Item Value Reference Range Interpretation Comments T-UPTAKE (test code = 2817) 24.3 % THYROX. BIND. CAPAC. (test 1.3 code = 64990) T4 (THYROXINE) (test code = 3.6 UG/DL 2819) CORRECTED T4 (FTI) (test code 2.8 UG/DL = 2820) TSH, THIRD GENERATION (test >100.000 UIU/ML code = 2821) THYROID II PROFILE (T3U, T4, T7, TSH)2019-07-05 00:00:00 Test Item Value Reference Range Interpretation Comments T-UPTAKE (test code = 2817) 24.3 % THYROX. BIND. CAPAC. (test 1.3 code = 02631) T4 (THYROXINE) (test code = 3.6 UG/DL 2819) CORRECTED T4 (FTI) (test code 2.8 UG/DL = 2820) TSH, THIRD GENERATION (test >100.000 UIU/ML code = 2821) THYROID II PROFILE (T3U, T4, T7, TSH)2019-07-05 00:00:00 Test Item Value Reference Range Interpretation Comments T-UPTAKE (test code = 2817) 24.3 % THYROX. BIND. CAPAC. (test 1.3 code = 97463) T4 (THYROXINE) (test code = 3.6 UG/DL 2819) CORRECTED T4 (FTI) (test code 2.8 UG/DL = 2820) TSH, THIRD GENERATION (test >100.000 UIU/ML code = 2821) THYROID II PROFILE (T3U, T4, T7, TSH)2019-07-05 00:00:00 Test Item Value Reference Range Interpretation Comments T-UPTAKE (test code = 2817) 24.3 % THYROX. BIND. CAPAC. (test 1.3 code = 25455) T4 (THYROXINE) (test code = 3.6 UG/DL 2819) CORRECTED T4 (FTI) (test code 2.8 UG/DL = 2820) TSH, THIRD GENERATION (test >100.000 UIU/ML code = 2821) THYROID II PROFILE (T3U, T4, T7, TSH)2019-07-05 00:00:00 Test Item Value Reference Range Interpretation Comments T-UPTAKE (test code = 2817) 24.3 % THYROX. BIND. CAPAC. (test 1.3 code = 63017) T4 (THYROXINE) (test code = 3.6 UG/DL 2819) CORRECTED T4 (FTI) (test code 2.8 UG/DL = 2820) TSH, THIRD GENERATION (test >100.000 UIU/ML code = 2821) THYROID II PROFILE (T3U, T4, T7, TSH)2019-07-05 00:00:00 Test Item Value Reference Range Interpretation Comments T-UPTAKE (test code = 2817) 24.3 % THYROX. BIND. CAPAC. (test 1.3 code = 47359) T4 (THYROXINE) (test code = 3.6 UG/DL 2819) CORRECTED T4 (FTI) (test code 2.8 UG/DL = 2820) TSH, THIRD GENERATION (test >100.000 UIU/ML code = 2821) URINE [id number] 14:35:00 Test Item Value Reference Range Interpretation Comments CULTURE (BEAKER) ENTEROCOCCUS A 10-19,000 c ol/mL (test code = 1095) FAECALIS Enterococ cus faecalis Ampicillin (test S code = 26) Levofloxacin (test S code = 22) Linezolid (test code S = 40) Nitrofurantoin (test S code = 23) Tetracycline (test R code = 2) Vancomycin (test S code = 13) 10-19,000 col/mL skin [id number] 10:31:00 Test Item Value Reference Range Interpretation Comments RPR SCREEN (BEAKER) (test code = Nonreactive Nonreactive 420) U/S, ABDOMINAL, [id number] 16:14:00Reason for Exam:->Kidney transplant evaluation; comment on [...] MDReport Verified Date/Time: 05/23/2019 16:14:42 Reading Location: [address] Radiology Reading Room RAD, CHEST, 2 [id number] 16:02:00 Reason for Exam:->Pre kidney transplant evaluation.FINAL [...] MDReport Verified Date/Time: 05/23/2019 16:02:27 Reading Location: [address] Radiology Reading Room CYTOMEGALOVIRUS ANTIBODY, [id number] 15:17:00 Test Item Value Reference Range Interpretation Comments CYTOMEGALOVIRUS, IGG (BEAKER) Positive Negative, Equivocal A (test code = 3429) CMV IgG Result Interpretation: </= 0.8 Al Negative 0.9-1.0 Al Equivocal >/=1.1 Al PositiveCYTOMEGALOVIRUS ANTIBODY, [id number] 15:17:00 Test Item Value Reference Range Interpretation Comments CYTOMEGALOVIRUS IGM ANTIBODY Negative Negative, Equivocal (BEAKER) (test code = 3437) CMV IgM Result Interpretation: </= 0.8 Al Negative 0.9-1.0 Al Equivocal >/= 1.1 Al PositiveEBV ANTIBODY, [id number] 15:17:00 Test Item Value Reference Range Interpretation Comments NIHARIKA HOOPER VIRAL CAPSID Positive Negative, Equivocal A ANTIGEN IGG (BEAKER) (test code = 3415) Niharika Hooper Viral Capsid Antigen IgG Result Interpretation: </= 0.8 Al Negative 0.9-1.0 Al Equivocal >/= 1.1 Al PositiveEBV ANTIBODY, [id number] 15:17:00 Test Item Value Reference Range Interpretation Comments NIHARIKA HOOPER VIRAL CAPSID Negative Negative, Equivocal ANTIGEN IGM (BEAKER) (test code = 3418) Niharika Hooper Viral Capsid Antigen IgM Result Interpretation: </= 0.8 Al Negative 0.9-1.0 Al Equivocal >/= 1.1 Al PositiveVARICELLA ZOSTER ANTIBODY, [id number] 15:17:00 Test Item Value Reference Range Interpretation Comments VARICELLA ZOSTER IGG (AL) (BEAKER) 3.4 (test code = 3197) VARICELLA ZOSTER RESULT INTERPRETATIONS: <=0.8 Al Nonreactive: Presumed non- immune to VZV 0.9-1.0Al Equivocal >=1.1 Al Reactive: Presumed immune to VZV HEPATITIS B SURFACE [id number] 12:59:00 Test Item Value Reference Range Interpretation Comments HEPATITIS B SURFACE ANTIBODY 94659.3 mIU/mL <8.0 H (BEAKER) (test code = 647) [employer] ID - TIKAEPATITIS B SURFACE [id number] 12:47:00 Test Item Value Reference Range Interpretation Comments HEPATITIS B SURFACE ANTIGEN (2) Nonreactive Nonreactive (BEAKER) (test code = 2585) [employer] ID - NANCYGHEPATITIS B CORE ANTIBODY, [id number] 12:47:00 Test Item Value Reference Range Interpretation Comments HEPATITIS B CORE IGM ANTIBODY Nonreactive Nonreactive (BEAKER) (test code = 645) [employer] ID - ROSIANGHEPATITIS C [id number] 12:47:00 Test Item Value Reference Range Interpretation Comments HEPATITIS C ANTIBODY (BEAKER) Nonreactive Nonreactive (test code = 367) [employer] ID - TIKAIV-1 ANTIGEN WITH HIV-1/2 [id number] 12:47:00 Test Item Value Reference Range Interpretation Comments HIV-1 ANTIGEN WITH HIV 1\T\2 Nonreactive Nonreactive ANTIBODY (2) (BEAKER) (test code = 2586) [employer] ID - ROSIANGPTH, [id number] 12:03:00 Test Item Value Reference Range Interpretation Comments PARATHYROID HORMONE INTACT 430.9 pg/mL 8.5-72.5 H (BEAKER) (test code = 577) [employer] ID - LACOMPREHENSIVE METABOLIC [id number] 11:56:00 Test Item Value Reference Range Interpretation [...] S NOT APPLICABLE FOR DIALYSIS PATIEN TS. Techn[employer] ID - LAURIC [id number] 11:55:00 Test Item Value Reference Range Interpretation Comments URIC ACID (BEAKER) (test code = 5.5 mg/dL 2.6-7.2 773) [employer] ID - [id number] 11:55:00 Test Item Value Reference Range Interpretation Comments PHOSPHORUS (BEAKER) (test code = 5.5 mg/dL 2.3-4.7 H 604) [employer] ID - LAGAMMA GLUTAMYL TRANSFERASE (GGT)2019-05-23 11:55:00 Test Item Value Reference Range Interpretation Comments GAMMA GLUTAMYL TRANSFERASE (BEAKER) 20 U/L 9-64 (test code = 364) [employer] ID - LALACTATE DEHYDROGENASE (LDH)2019-05-23 11:55:00 Test Item Value Reference Range Interpretation Comments LACTATE DEHYDROGENASE (BEAKER) (test 249 U/L 125-220 H code = 635) [employer] ID - LAURINALYSIS W/ [id number] 11:43:00 Test Item Value Reference Range Interpretation [...] < /HPF SOURCE(BEAKER) (test code = 2795) Technician [employer] ID - [auto]Technician Test [employer] ID - techPT/[id number] 11:32:00 Test Item Value Reference Range Interpretation [...] 2.5-3.5 for patients wiht mechanical heart valves.PROTHROMBIN TIME/[id number] 11:31:00 Test Item Value Reference Range Interpretation [...] mechanical heart valves.CBC W/PLT COUNT & AUTO [id number] 11:27:00 Test Item Value Reference Range Interpretation [...] 0-1 PERCENT (BEAKER) (test code = 2801) [id number] 00:00:00 Test Item Value Reference Range Interpretation Comments TSH, THIRD GENERATION (test >100.000 UIU/ML code = 2821) [id number] 00:00:00 Test Item Value Reference Range Interpretation Comments TSH, THIRD GENERATION (test >100.000 UIU/ML code = 2821) [id number] 00:00:00 Test Item Value Reference Range Interpretation Comments TSH, THIRD GENERATION (test >100.000 UIU/ML code = 2821) [id number] 00:00:00 Test Item Value Reference Range Interpretation Comments TSH, THIRD GENERATION (test >100.000 UIU/ML code = 2821) [id number] 00:00:00 Test Item Value Reference Range Interpretation Comments TSH, THIRD GENERATION (test >100.000 UIU/ML code = 2821) [id number] 00:00:00 Test Item Value Reference Range Interpretation Comments TSH, THIRD GENERATION (test >100.000 UIU/ML code = 2821) [id number] 00:00:00 Test Item Value Reference Range Interpretation Comments TSH, THIRD GENERATION (test >100.000 UIU/ML code = 2821) [id number] 00:00:00 Test Item Value Reference Range Interpretation Comments TSH, THIRD GENERATION (test >100.000 UIU/ML code = 2821) [id number] 00:00:00 Test Item Value Reference Range Interpretation Comments TSH, THIRD GENERATION (test >100.000 UIU/ML code = 2821) [id number] 00:00:00 Test Item Value Reference Range Interpretation Comments TSH, THIRD GENERATION (test >100.000 UIU/ML code = 2821) [id number] 00:00:00 Test Item Value Reference Range Interpretation Comments TSH, THIRD GENERATION (test >100.000 UIU/ML code = 2821) [id number] 00:00:00 Test Item Value Reference Range Interpretation Comments TSH, THIRD GENERATION (test >100.000 UIU/ML code = 2821) [id number] 00:00:00 Test Item Value Reference Range Interpretation Comments TSH, THIRD GENERATION (test >100.000 UIU/ML code = 2821) [id number] 00:00:00 Test Item Value Reference Range Interpretation Comments TSH, THIRD GENERATION (test >100.000 UIU/ML code = 2821) LIPID [id number] 00:00:00 Test Item Value Reference Range Interpretation Comments CHOLESTEROL (test code = 2210) 201 MG/DL TRIGLYCERIDES (test code = 2232) 227 MG/DL HDL CHOLESTEROL (test code = 2220) 52 MG/DL CALC LDL CHOL (test code = 2237) 104 MG/DL RISK RATIO LDL/HDL (test code = 1.99 RATIO 2238) LIPID [id number] 00:00:00 Test Item Value Reference Range Interpretation Comments CHOLESTEROL (test code = 2210) 201 MG/DL TRIGLYCERIDES (test code = 2232) 227 MG/DL HDL CHOLESTEROL (test code = 2220) 52 MG/DL CALC LDL CHOL (test code = 2237) 104 MG/DL RISK RATIO LDL/HDL (test code = 1.99 RATIO 2238) [id number] 00:00:00 Test Item Value Reference Range Interpretation Comments TSH, THIRD GENERATION (test >100.000 UIU/ML code = 2821) [id number] 00:00:00 Test Item Value Reference Range Interpretation Comments TSH, THIRD GENERATION (test >100.000 UIU/ML code = 2821) [id number] 00:00:00 Test Item Value Reference Range Interpretation Comments TSH, THIRD GENERATION (test >100.000 UIU/ML code = 2821) LIPID [id number] 00:00:00 Test Item Value Reference Range Interpretation Comments CHOLESTEROL (test code = 2210) 201 MG/DL TRIGLYCERIDES (test code = 2232) 227 MG/DL HDL CHOLESTEROL (test code = 2220) 52 MG/DL CALC LDL CHOL (test code = 2237) 104 MG/DL RISK RATIO LDL/HDL (test code = 1.99 RATIO 2238) LIPID [id number] 00:00:00 Test Item Value Reference Range Interpretation Comments CHOLESTEROL (test code = 2210) 201 MG/DL TRIGLYCERIDES (test code = 2232) 227 MG/DL HDL CHOLESTEROL (test code = 2220) 52 MG/DL CALC LDL CHOL (test code = 2237) 104 MG/DL RISK RATIO LDL/HDL (test code = 1.99 RATIO 2238) [id number] 00:00:00 Test Item Value Reference Range Interpretation Comments TSH, THIRD GENERATION (test >100.000 UIU/ML code = 2821) [id number] 00:00:00 Test Item Value Reference Range Interpretation Comments TSH, THIRD GENERATION (test >100.000 UIU/ML code = 2821) [id number] 00:00:00 Test Item Value Reference Range Interpretation Comments TSH, THIRD GENERATION (test >100.000 UIU/ML code = 2821) LIPID [id number] 00:00:00 Test Item Value Reference Range Interpretation Comments CHOLESTEROL (test code = 2210) 201 MG/DL TRIGLYCERIDES (test code = 2232) 227 MG/DL HDL CHOLESTEROL (test code = 2220) 52 MG/DL CALC LDL CHOL (test code = 2237) 104 MG/DL RISK RATIO LDL/HDL (test code = 1.99 RATIO 2238) [id number] 00:00:00 Test Item Value Reference Range Interpretation Comments TSH, THIRD GENERATION (test >100.000 UIU/ML code = 2821) [id number] 00:00:00 Test Item Value Reference Range Interpretation Comments TSH, THIRD GENERATION (test >100.000 UIU/ML code = 2821) LIPID [id number] 00:00:00 Test Item Value Reference Range Interpretation Comments CHOLESTEROL (test code = 2210) 201 MG/DL TRIGLYCERIDES (test code = 2232) 227 MG/DL HDL CHOLESTEROL (test code = 2220) 52 MG/DL CALC LDL CHOL (test code = 2237) 104 MG/DL RISK RATIO LDL/HDL (test code = 1.99 RATIO 2238) LIPID [id number] 00:00:00 Test Item Value Reference Range Interpretation Comments CHOLESTEROL (test code = 2210) 201 MG/DL TRIGLYCERIDES (test code = 2232) 227 MG/DL HDL CHOLESTEROL (test code = 2220) 52 MG/DL CALC LDL CHOL (test code = 2237) 104 MG/DL RISK RATIO LDL/HDL (test code = 1.99 RATIO 2238) [id number] 00:00:00 Test Item Value Reference Range Interpretation Comments TSH, THIRD GENERATION (test >100.000 UIU/ML code = 2821) [id number] 00:00:00 Test Item Value Reference Range Interpretation Comments TSH, THIRD GENERATION (test >100.000 UIU/ML code = 2821) [id number] 00:00:00 Test Item Value Reference Range Interpretation Comments TSH, THIRD GENERATION (test >100.000 UIU/ML code = 2821) LIPID [id number] 00:00:00 Test Item Value Reference Range Interpretation Comments CHOLESTEROL (test code = 2210) 201 MG/DL TRIGLYCERIDES (test code = 2232) 227 MG/DL HDL CHOLESTEROL (test code = 2220) 52 MG/DL CALC LDL CHOL (test code = 2237) 104 MG/DL RISK RATIO LDL/HDL (test code = 1.99 RATIO 2238) LIPID [id number] 00:00:00 Test Item Value Reference Range Interpretation Comments CHOLESTEROL (test code = 2210) 201 MG/DL TRIGLYCERIDES (test code = 2232) 227 MG/DL HDL CHOLESTEROL (test code = 2220) 52 MG/DL CALC LDL CHOL (test code = 2237) 104 MG/DL RISK RATIO LDL/HDL (test code = 1.99 RATIO 2238) [id number] 00:00:00 Test Item Value Reference Range Interpretation Comments TSH, THIRD GENERATION (test >100.000 UIU/ML code = 2821) [id number] 00:00:00 Test Item Value Reference Range Interpretation Comments TSH, THIRD GENERATION (test >100.000 UIU/ML code = 2821) [id number] 00:00:00 Test Item Value Reference Range Interpretation Comments TSH, THIRD GENERATION (test >100.000 UIU/ML code = 2821) HEMOGLOBIN [id number] 00:00:00 Test Item Value Reference Range Interpretation Comments HEMOGLOBIN A1c (test code = 24194) 6.2 % HEMOGLOBIN [id number] 00:00:00 Test Item Value Reference Range Interpretation Comments HEMOGLOBIN A1c (test code = 36692) 6.2 % HEMOGLOBIN [id number] 00:00:00 Test Item Value Reference Range Interpretation Comments HEMOGLOBIN A1c (test code = 82873) 6.2 % [id number] 00:00:00 Test Item Value Reference Range Interpretation Comments TSH, THIRD GENERATION (test >100.000 UIU/ML code = 2821) [id number] 00:00:00 Test Item Value Reference Range Interpretation Comments TSH, THIRD GENERATION (test >100.000 UIU/ML code = 2821) [id number] 00:00:00 Test Item Value Reference Range Interpretation Comments TSH, THIRD GENERATION (test >100.000 UIU/ML code = 2821) COMPREHENSIVE METABOLIC [id number] 00:00:00 Test Item Value Reference Range Interpretation Comments GLUCOSE (test code = 2217) 103 MG/DL BUN (test code = 2208) 35 MG/DL CREATININE (test code = 2214) 6.37 MG/DL eGFR AMER. (test code 11 ML/MIN/1.73 = 17753) eGFR NON- AMER. (test 9 ML/MIN/1.73 code = 09745) CALC BUN/CREAT (test code = 5 RATIO 2235) SODIUM (test code = 2231) 141 MEQ/L POTASSIUM (test code = 2228) 3.8 MEQ/L CHLORIDE (test code = 2215) 96 MEQ/L CARBON DIOXIDE (test code = 27 MEQ/L 2205) CALCIUM (test code = 2209) 11.0 MG/DL [...] ALT (test code = 2219) 10 U/L COMPREHENSIVE METABOLIC [id number] 00:00:00 Test Item Value Reference Range Interpretation Comments GLUCOSE (test code = 2217) 103 MG/DL BUN (test code = 2208) 35 MG/DL CREATININE (test code = 2214) 6.37 MG/DL eGFR AMER. (test code 11 ML/MIN/1.73 = 88044) eGFR NON- AMER. (test 9 ML/MIN/1.73 code = 15817) CALC BUN/CREAT (test code = 5 RATIO 2235) SODIUM (test code = 2231) 141 MEQ/L POTASSIUM (test code = 2228) 3.8 MEQ/L CHLORIDE (test code = 2215) 96 MEQ/L CARBON DIOXIDE (test code = 27 MEQ/L 2205) CALCIUM (test code = 2209) 11.0 MG/DL PROTEIN, TOTAL (test code = 8.8 G/DL 2228) ALBUMIN (test code = 2201) 5.6 G/DL CALC GLOBULIN (test code = 3.2 G/DL 224) CALC A/G RATIO (test code = 1.8 RATIO 2233) BILIRUBIN, TOTAL (test code = 0.2 MG/DL 2206) ALKALINE PHOSPHATASE (test 58 U/L code = 2204) AST (test code = 2218) 10 U/L ALT (test code = 2219) 10 U/L LIPID [id number] 00:00:00 Test Item Value Reference Range Interpretation Comments CHOLESTEROL (test code = 2210) 240 MG/DL TRIGLYCERIDES (test code = 2232) 395 MG/DL HDL CHOLESTEROL (test code = 2220) 55 MG/DL CALC LDL CHOL (test code = 2237) 106 MG/DL RISK RATIO LDL/HDL (test code = 1.93 RATIO 2238) LIPID [id number] 00:00:00 Test Item Value Reference Range Interpretation Comments CHOLESTEROL (test code = 2210) 240 MG/DL TRIGLYCERIDES (test code = 2232) 395 MG/DL HDL CHOLESTEROL (test code = 2220) 55 MG/DL CALC LDL CHOL (test code = 2237) 106 MG/DL RISK RATIO LDL/HDL (test code = 1.93 RATIO 2238) CBC W/AUTO [id number] 00:00:00 Test Item Value Reference Range Interpretation [...] code = 1015) 327 K/UL CBC W/AUTO [id number] 00:00:00 Test Item Value Reference Range Interpretation [...] code = 1015) 327 K/UL CBC W/AUTO [id number] 00:00:00 Test Item Value Reference Range Interpretation [...] (test code = 1015) 327 K/UL HEMOGLOBIN [id number] 00:00:00 Test Item Value Reference Range Interpretation Comments HEMOGLOBIN A1c (test code = 91118) 6.2 % HEMOGLOBIN [id number] 00:00:00 Test Item Value Reference Range Interpretation Comments HEMOGLOBIN A1c (test code = 55006) 6.2 % HEMOGLOBIN [id number] 00:00:00 Test Item Value Reference Range Interpretation Comments HEMOGLOBIN A1c (test code = 38000) 6.2 % [id number] 00:00:00 Test Item Value Reference Range Interpretation Comments TSH, THIRD GENERATION (test >100.000 UIU/ML code = 2821) [id number] 00:00:00 Test Item Value Reference Range Interpretation Comments TSH, THIRD GENERATION (test >100.000 UIU/ML code = 2821) [id number] 00:00:00 Test Item Value Reference Range Interpretation Comments TSH, THIRD GENERATION (test >100.000 UIU/ML code = 2821) COMPREHENSIVE METABOLIC [id number] 00:00:00 Test Item Value Reference Range Interpretation Comments GLUCOSE (test code = 2217) 103 MG/DL BUN (test code = 2208) 35 MG/DL CREATININE (test code = 2214) 6.37 MG/DL eGFR AMER. (test code 11 ML/MIN/1.73 = 40178) eGFR NON- AMER. (test 9 ML/MIN/1.73 code = 28227) CALC BUN/CREAT (test code = 5 RATIO 2235) SODIUM (test code = 2231) 141 MEQ/L POTASSIUM (test code = 2228) 3.8 MEQ/L CHLORIDE (test code = 2215) 96 MEQ/L CARBON DIOXIDE (test code = 27 MEQ/L 2205) CALCIUM (test code = 2209) 11.0 MG/DL PROTEIN, TOTAL (test code = 8.8 G/DL 2228) ALBUMIN (test code = 2201) 5.6 G/DL CALC GLOBULIN (test code = 3.2 G/DL 0) CALC A/G RATIO (test code = 1.8 RATIO 2234) BILIRUBIN, TOTAL (test code = 0.2 MG/DL 2206) ALKALINE PHOSPHATASE (test 58 U/L code = 2204) AST (test code = 2218) 10 U/L ALT (test code = 2219) 10 U/L COMPREHENSIVE METABOLIC [id number] 00:00:00 Test Item Value Reference Range Interpretation Comments GLUCOSE (test code = 2217) 103 MG/DL BUN (test code = 2208) 35 MG/DL CREATININE (test code = 2214) 6.37 MG/DL eGFR AMER. (test code 11 ML/MIN/1.73 = 13506) eGFR NON- AMER. (test 9 ML/MIN/1.73 code = 38648) CALC BUN/CREAT (test code = 5 RATIO 2235) SODIUM (test code = 2231) 141 MEQ/L POTASSIUM (test code = 2228) 3.8 MEQ/L CHLORIDE (test code = 2215) 96 MEQ/L CARBON DIOXIDE (test code = 27 MEQ/L 2205) CALCIUM (test code = 2209) 11.0 MG/DL PROTEIN, TOTAL (test code = 8.8 G/DL 2228) ALBUMIN (test code = 2201) 5.6 G/DL CALC GLOBULIN (test code = 3.2 G/DL 224) CALC A/G RATIO (test code = 1.8 RATIO 2234) BILIRUBIN, TOTAL (test code = 0.2 MG/DL 2206) ALKALINE PHOSPHATASE (test 58 U/L code = 2204) AST (test code = 2218) 10 U/L ALT (test code = 2219) 10 U/L LIPID [id number] 00:00:00 Test Item Value Reference Range Interpretation Comments CHOLESTEROL (test code = 2210) 240 MG/DL TRIGLYCERIDES (test code = 2232) 395 MG/DL HDL CHOLESTEROL (test code = 2220) 55 MG/DL CALC LDL CHOL (test code = 2237) 106 MG/DL RISK RATIO LDL/HDL (test code = 1.93 RATIO 2238) LIPID [id number] 00:00:00 Test Item Value Reference Range Interpretation Comments CHOLESTEROL (test code = 2210) 240 MG/DL TRIGLYCERIDES (test code = 2232) 395 MG/DL HDL CHOLESTEROL (test code = 2220) 55 MG/DL CALC LDL CHOL (test code = 2237) 106 MG/DL RISK RATIO LDL/HDL (test code = 1.93 RATIO 2238) CBC W/AUTO [id number] 00:00:00 Test Item Value Reference Range Interpretation [...] code = 1015) 327 K/UL CBC W/AUTO [id number] 00:00:00 Test Item Value Reference Range Interpretation [...] code = 1015) 327 K/UL CBC W/AUTO [id number] 00:00:00 Test Item Value Reference Range Interpretation [...] (test code = 1015) 327 K/UL HEMOGLOBIN [id number] 00:00:00 Test Item Value Reference Range Interpretation Comments HEMOGLOBIN A1c (test code = 97648) 6.2 % HEMOGLOBIN [id number] 00:00:00 Test Item Value Reference Range Interpretation Comments HEMOGLOBIN A1c (test code = 82937) 6.2 % HEMOGLOBIN [id number] 00:00:00 Test Item Value Reference Range Interpretation Comments HEMOGLOBIN A1c (test code = 64728) 6.2 % [id number] 00:00:00 Test Item Value Reference Range Interpretation Comments TSH, THIRD GENERATION (test >100.000 UIU/ML code = 2821) [id number] 00:00:00 Test Item Value Reference Range Interpretation Comments TSH, THIRD GENERATION (test >100.000 UIU/ML code = 2821) [id number] 00:00:00 Test Item Value Reference Range Interpretation Comments TSH, THIRD GENERATION (test >100.000 UIU/ML code = 2821) COMPREHENSIVE METABOLIC [id number] 00:00:00 Test Item Value Reference Range Interpretation Comments GLUCOSE (test code = 2217) 103 MG/DL BUN (test code = 2208) 35 MG/DL CREATININE (test code = 2214) 6.37 MG/DL eGFR AMER. (test code 11 ML/MIN/1.73 = 69964) eGFR NON- AMER. (test 9 ML/MIN/1.73 code = 66593) CALC BUN/CREAT (test code = 5 RATIO 2235) SODIUM (test code = 2231) 141 MEQ/L POTASSIUM (test code = 2228) 3.8 MEQ/L CHLORIDE (test code = 2215) 96 MEQ/L CARBON DIOXIDE (test code = 27 MEQ/L 2205) CALCIUM (test code = 2209) 11.0 MG/DL [...] (test code = 2219) 10 U/L LIPID [id number] 00:00:00 Test Item Value Reference Range Interpretation Comments CHOLESTEROL (test code = 2210) 240 MG/DL TRIGLYCERIDES (test code = 2232) 395 MG/DL HDL CHOLESTEROL (test code = 2220) 55 MG/DL CALC LDL CHOL (test code = 2237) 106 MG/DL RISK RATIO LDL/HDL (test code = 1.93 RATIO 2238) CBC W/AUTO [id number] 00:00:00 Test Item Value Reference Range Interpretation [...] code = 1015) 327 K/UL CBC W/AUTO [id number] 00:00:00 Test Item Value Reference Range Interpretation [...] (test code = 1015) 327 K/UL HEMOGLOBIN [id number] 00:00:00 Test Item Value Reference Range Interpretation Comments HEMOGLOBIN A1c (test code = 19523) 6.2 % HEMOGLOBIN [id number] 00:00:00 Test Item Value Reference Range Interpretation Comments HEMOGLOBIN A1c (test code = 37048) 6.2 % [id number] 00:00:00 Test Item Value Reference Range Interpretation Comments TSH, THIRD GENERATION (test >100.000 UIU/ML code = 2821) [id number] 00:00:00 Test Item Value Reference Range Interpretation Comments TSH, THIRD GENERATION (test >100.000 UIU/ML code = 2821) COMPREHENSIVE METABOLIC [id number] 00:00:00 Test Item Value Reference Range Interpretation Comments GLUCOSE (test code = 2217) 103 MG/DL BUN (test code = 2208) 35 MG/DL CREATININE (test code = 2214) 6.37 MG/DL eGFR AMER. (test code 11 ML/MIN/1.73 = 21490) eGFR NON- AMER. (test 9 ML/MIN/1.73 code = 39648) CALC BUN/CREAT (test code = 5 RATIO 2235) SODIUM (test code = 2231) 141 MEQ/L POTASSIUM (test code = 2228) 3.8 MEQ/L CHLORIDE (test code = 2215) 96 MEQ/L CARBON DIOXIDE (test code = 27 MEQ/L 2205) CALCIUM (test code = 2209) 11.0 MG/DL [...] ALT (test code = 2219) 10 U/L COMPREHENSIVE METABOLIC [id number] 00:00:00 Test Item Value Reference Range Interpretation Comments GLUCOSE (test code = 2217) 103 MG/DL BUN (test code = 2208) 35 MG/DL CREATININE (test code = 2214) 6.37 MG/DL eGFR AMER. (test code 11 ML/MIN/1.73 = 77236) eGFR NON- AMER. (test 9 ML/MIN/1.73 code = 99272) CALC BUN/CREAT (test code = 5 RATIO 2235) SODIUM (test code = 2231) 141 MEQ/L POTASSIUM (test code = 2228) 3.8 MEQ/L CHLORIDE (test code = 2215) 96 MEQ/L CARBON DIOXIDE (test code = 27 MEQ/L 2205) CALCIUM (test code = 2209) 11.0 MG/DL PROTEIN, TOTAL (test code = 8.8 G/DL 2228) ALBUMIN (test code = 2201) 5.6 G/DL CALC GLOBULIN (test code = 3.2 G/DL 2239) CALC A/G RATIO (test code = 1.8 RATIO 4) BILIRUBIN, TOTAL (test code = 0.2 MG/DL 2206) ALKALINE PHOSPHATASE (test 58 U/L code = 2204) AST (test code = 2218) 10 U/L ALT (test code = 2219) 10 U/L LIPID [id number] 00:00:00 Test Item Value Reference Range Interpretation Comments CHOLESTEROL (test code = 2210) 240 MG/DL TRIGLYCERIDES (test code = 2232) 395 MG/DL HDL CHOLESTEROL (test code = 2220) 55 MG/DL CALC LDL CHOL (test code = 2237) 106 MG/DL RISK RATIO LDL/HDL (test code = 1.93 RATIO 2238) LIPID [id number] 00:00:00 Test Item Value Reference Range Interpretation Comments CHOLESTEROL (test code = 2210) 240 MG/DL TRIGLYCERIDES (test code = 2232) 395 MG/DL HDL CHOLESTEROL (test code = 2220) 55 MG/DL CALC LDL CHOL (test code = 2237) 106 MG/DL RISK RATIO LDL/HDL (test code = 1.93 RATIO 2238) CBC W/AUTO [id number] 00:00:00 Test Item Value Reference Range Interpretation [...] code = 1015) 327 K/UL CBC W/AUTO [id number] 00:00:00 Test Item Value Reference Range Interpretation [...] code = 1015) 327 K/UL CBC W/AUTO [id number] 00:00:00 Test Item Value Reference Range Interpretation [...] (test code = 1015) 327 K/UL HEMOGLOBIN [id number] 00:00:00 Test Item Value Reference Range Interpretation Comments HEMOGLOBIN A1c (test code = 06447) 6.2 % HEMOGLOBIN [id number] 00:00:00 Test Item Value Reference Range Interpretation Comments HEMOGLOBIN A1c (test code = 48247) 6.2 % HEMOGLOBIN [id number] 00:00:00 Test Item Value Reference Range Interpretation Comments HEMOGLOBIN A1c (test code = 84010) 6.2 % [id number] 00:00:00 Test Item Value Reference Range Interpretation Comments TSH, THIRD GENERATION (test >100.000 UIU/ML code = 2821) [id number] 00:00:00 Test Item Value Reference Range Interpretation Comments TSH, THIRD GENERATION (test >100.000 UIU/ML code = 2821) [id number] 00:00:00 Test Item Value Reference Range Interpretation Comments TSH, THIRD GENERATION (test >100.000 UIU/ML code = 2821) COMPREHENSIVE METABOLIC [id number] 00:00:00 Test Item Value Reference Range Interpretation Comments GLUCOSE (test code = 2217) 103 MG/DL BUN (test code = 2208) 35 MG/DL CREATININE (test code = 2214) 6.37 MG/DL eGFR AMER. (test code 11 ML/MIN/1.73 = 53078) eGFR NON- AMER. (test 9 ML/MIN/1.73 code = 75586) CALC BUN/CREAT (test code = 5 RATIO 2235) SODIUM (test code = 2231) 141 MEQ/L POTASSIUM (test code = 2228) 3.8 MEQ/L CHLORIDE (test code = 2215) 96 MEQ/L CARBON DIOXIDE (test code = 27 MEQ/L 2205) CALCIUM (test code = 2209) 11.0 MG/DL PROTEIN, TOTAL (test code = 8.8 G/DL 2228) ALBUMIN (test code = 2201) 5.6 G/DL CALC GLOBULIN (test code = 3.2 G/DL 2240) CALC A/G RATIO (test code = 1.8 RATIO 2234) BILIRUBIN, TOTAL (test code = 0.2 MG/DL 220) ALKALINE PHOSPHATASE (test 58 U/L code = 2204) AST (test code = 2218) 10 U/L ALT (test code = 2219) 10 U/L COMPREHENSIVE METABOLIC [id number] 00:00:00 Test Item Value Reference Range Interpretation Comments GLUCOSE (test code = 2217) 103 MG/DL BUN (test code = 2208) 35 MG/DL CREATININE (test code = 2214) 6.37 MG/DL eGFR AMER. (test code 11 ML/MIN/1.73 = 24823) eGFR NON- AMER. (test 9 ML/MIN/1.73 code = 97465) CALC BUN/CREAT (test code = 5 RATIO 2235) SODIUM (test code = 2231) 141 MEQ/L POTASSIUM (test code = 2228) 3.8 MEQ/L CHLORIDE (test code = 2215) 96 MEQ/L CARBON DIOXIDE (test code = 27 MEQ/L 2205) CALCIUM (test code = 2209) 11.0 MG/DL [...] (test code = 2219) 10 U/L LIPID [id number] 00:00:00 Test Item Value Reference Range Interpretation Comments CHOLESTEROL (test code = 2210) 240 MG/DL TRIGLYCERIDES (test code = 2232) 395 MG/DL HDL CHOLESTEROL (test code = 2220) 55 MG/DL CALC LDL CHOL (test code = 2237) 106 MG/DL RISK RATIO LDL/HDL (test code = 1.93 RATIO 2238) LIPID [id number] 00:00:00 Test Item Value Reference Range Interpretation Comments CHOLESTEROL (test code = 2210) 240 MG/DL TRIGLYCERIDES (test code = 2232) 395 MG/DL HDL CHOLESTEROL (test code = 2220) 55 MG/DL CALC LDL CHOL (test code = 2237) 106 MG/DL RISK RATIO LDL/HDL (test code = 1.93 RATIO 2238) CBC W/AUTO [id number] 00:00:00 Test Item Value Reference Range Interpretation [...] code = 1015) 327 K/UL CBC W/AUTO [id number] 00:00:00 Test Item Value Reference Range Interpretation [...] code = 1015) 327 K/UL CBC W/AUTO [id number] 00:00:00 Test Item Value Reference Range Interpretation [...]
[2022-03-17] MEDS ORDERED: METHYLPREDNISOLONE 125 MG INJ ONE (10:47)
[2022-03-17] MEDS ORDERED: LEVALBUTEROL 1.25 MG/3 ML NEB ONE (10:47)
--- NOTE | 2022-03-17 11:36 | RAD REPORT ---
EXAM DESCRIPTION: RAD - Chest Single View - 03/17/2022 10:48 am CLINICAL HISTORY: DYSPNEA Chest pain. COMPARISON: Chest Single View dated 12/22/2021; Chest Single View dated 11/23/2020; Chest Single View dated 06/25/2020; Chest Single View dated 06/24/2020 FINDINGS: Portable technique limits examination quality. Mild interstitial pulmonary edema is seen. The heart is mildly enlarged in size. No displaced fractur es. IMPRESSION: Mild CHF.
[2022-03-17 11:48] LABS: Absolute Lymphocytes (CBC) 1.3 K/uL (0.7-4.9); Hematocrit 31.9 % (39.6-49.0); MCV 95.5 fL (80-100); MPV 7.3 fL (7.6-11.3); RBC Red Blood Cell Count 3.34 M/uL (4.33-5.43)
[2022-03-17 11:54] LABS: SARS-COV-2 RT PCR NEGATIVE (NEGATIVE)
[2022-03-17 11:54] LABS: Protime INR 0.96
[2022-03-17 12:09] LABS: Potassium 4.2 mmol/L (3.5-5.1); Troponin High Sensitivity 53.8 pg/mL (<58.9)
--- NOTE | 2022-03-17 12:37 | EDPHYS ---
Physician Documentation [facility] Name: Alejandro Dunbar Age: 56 yrs Sex: Male : 1965 Arrival Date: 03/17/2022 Time: 10:18 Bed 26 Private MD: ED Physician Tomas Cast HPI: 03/17 11:05 This 56 yrs old Male presents to ER via Ambulatory with complaints of rn Breathing Difficulty, Shortness Of Breath. 11:05 The patient has shortness of breath with light activity. Onset: The symptoms/episode rn began/occurred 2 week(s) ago. Duration: The symptoms are intermittent. The patient's shortness of breath is aggravated by exertion, light activity, supine position. Associated signs and symptoms: Pertinent positives: This patient does not have any pertinent positive signs or symptoms associated with shortness of breath. Pertinent negatives: chest pain, fever, hemoptysis. Severity of symptoms: At their worst the symptoms were moderate in the emergency department the symptoms have improved. The patient has not experienced similar symptoms in the past. The patient has been recently seen by a physician:. Sent from sleep clinic for sob, wheezing. Pt reports sob, worse with exertion, began 2 weeks ago. No fever/chills. No leg swelling. No hx of CHF. + smoker.. Historical: - Allergies: 10:30 No Known Allergies; jl7 - PMHx: 10:30 Diabetes - NIDDM; Dialysis; High Cholesterol; Hypertension; Hypothyroidism; jl7 - Immunization history:: Adult Immunizations unknown. - Social history:: Smoking status: Patient reports the use of cigarette tobacco products. - Family history:: not pertinent. - Hospitalizations: : No recent hospitalization is reported. ROS: 11:05 Constitutional: Negative for fever, chills, and weight loss, Eyes: Negative for injury, rn pain, redness, and discharge, Neck: Negative for injury, pain, and swelling, Cardiovascular: Negative for chest pain, palpitations, and edema, Respiratory: + sob Abdomen/GI: Negative for abdominal pain, nausea, vomiting, diarrhea, and constipation, MS/Extremity: Negative for injury and deformity, Skin: Negative for injury, rash, and discoloration, Neuro: Negative for headache, weakness, numbness, tingling, and seizure. Exam: 11:05 Constitutional: This is a well developed, well nourished patient who is awake, alert, rn and in no acute distress. Head/Face: Normocephalic, atraumatic. ENT: no stridor Cardiovascular: Regular rate and rhythm. No pulse deficits. Respiratory: + mild tachypnea with faint wheezing, no retractions Abdomen/GI: Soft, non-tender Skin: Warm, dry MS/ Extremity: Pulses equal, no cyanosis. Neuro: Awake and alert, GCS 15 13:04 ECG was reviewed by the Attending Physician. rn Vital Signs: 10:30 BP 161 / 67; Pulse 79; Resp 21; Temp 97.9; Pulse Ox 96% on R/A; Pain 0/10; jl7 12:04 BP 166 / 77; Pulse 73; Resp 18; Pulse Ox 93% on R/A; ld1 13:00 BP 167 / 68; Pulse 77; Resp 17; Pulse Ox 96% 2 lpm ; eh3 MDM: 10:33 Patient medically screened. rn 12:35 Differential diagnosis: Bronchitis CHF exacerbation, pneumonia, Pneumothorax pulmonary rn edema. Data reviewed: vital signs, nurses notes, lab test result(s), radiologic studies, plain films, and as a result, I will admit patient. 12:35 Counseling: I had a detailed discussion with the patient and/or guardian regarding: the rn historical points, exam findings, and any diagnostic results supporting the discharge/admit diagnosis, lab results, radiology results, the need for further work-up and treatment in the hospital. Admission orders: after a detailed discussion of the patient's condition and case, the admit orders are written by me. 03/17 10:34 Order name: BMP; Complete Time: 12:20 rn 03/17 10:34 Order name: Blood Culture Adult (2) rn 03/17 10:34 Order name: CBC with Diff; Complete Time: 11:55 rn 03/17 10:34 Order name: NT PRO-BNP; Complete Time: 12:20 rn 03/17 10:34 Order name: PT-INR; Complete Time: 11:55 rn 03/17 10:34 Order name: Ptt, Activated; Complete Time: 11:55 rn 03/17 10:34 Order name: Troponin HS; Complete Time: 12:20 rn 03/17 10:35 Order name: COVID-19/FLU A+B/RSV (Document "Date of Onset" if Symptomatic); Complete rn Time: 11:55 03/17 14:22 Order name: Magnesium EDMS 03/17 14:22 Order name: Phosphorus EDMS 03/17 14:22 Order name: Urinalysis EDMS 03/17 14:22 Order name: Basic Metabolic Panel EDMS 03/17 14:22 Order name: Basic Metabolic Panel EDMS 03/17 14:22 Order name: CBC with Automated Diff EDMS 03/17 10:34 Order name: XRAY CXR (1 view); Complete Time: 11:39 rn 03/17 10:34 Order name: EKG; Complete Time: 10:35 rn 03/17 10:34 Order name: Cardiac monitoring; Complete Time: 11:06 rn 03/17 10:34 Order name: EKG - Nurse/Tech; Complete Time: 11:06 rn 03/17 13:12 Order name: Diet Ada 1800 Hugo; Complete Time: 13:13 em6 03/17 14:22 Order name: CBC with Automated Diff EDMS 03/17 14:22 Order name: NT PRO-BNP EDIL 03/17 14:22 Order name: NT PRO-BNP EDIL 03/17 20:17 Order name: Thyroid Stimulating Hormone EDMS 03/17 20:31 Order name: T4 Free EDMS 03/17 20:43 Order name: Glucose, Ancillary Testing EDMS 03/17 22:56 Order name: Glucose, Ancillary Testing EDMS 03/17 10:34 Order name: IV Saline Lock; Complete Time: 11:31 rn 03/17 10:34 Order name: Labs collected and sent; Complete Time: 11:31 rn 03/17 10:34 Order name: O2 Per Protocol; Complete Time: 10:43 rn 03/17 10:34 Order name: O2 Sat Monitoring; Complete Time: 10:43 rn EC:04 Rate is 73 beats/min. Rhythm is regular. QRS Crowder is Normal. PA interval is normal. QRS rn interval is normal. QT interval is normal. No Q waves. T waves are Normal. No ST changes noted. Clinical impression: NSR w/ Non-specific ST/T Changes. Interpreted by me. Reviewed by me. Administered Medications: 11:06 Drug: Xopenex (levalbuterol) (3) 1.25 mg Route: Inhalation; ld1 11:31 Drug: SOLU-Medrol (methylPrednisoLONE) 125 mg Route: IVP; Site: right antecubital; ld1 12:40 Follow up: Response: No adverse reaction eh3 13:01 Drug: Lasix (furosemide) 60 mg Route: IVP; Site: right antecubital; eh3 14:00 Follow up: Response: No adverse reaction eh3 Disposition Summary: 03/17/22 12:36 Hospitalization Ordered Hospitalization Status: Observation rn Location: Telemetry/MedSurg (observation) rn Condition: Stable rn Problem: an ongoing problem rn Symptoms: have improved rn Bed/Room Type: Standard rn Provider: Danis Bess(03/17/22 12:44) rn Room Assignment: [facility](03/17/22 21:25) Diagnosis - Acute pulmonary edema rn - End stage renal disease rn - Hypoxemia rn Forms: - Medication Reconciliation Form rn - SBAR form rn Signatures: Dispatcher [employer] EDMS Tomas Cast MD MD rn Garcia, Cindy, RN RN Aida Wen RN RN jl7 Dipti Green RN RN ld1 Janay Marshall RN RN eh3 Corrections: (The following items were deleted from the chart) 12:44 12:36 Primitivo Rosario rn rn 14:24 14:20 Renal ordered. EDIL EDIL 21:25 12:36 rn cg
--- NOTE | 2022-03-17 12:37 | ER ---
Nurse's Notes [facility] Name: Alejandro Dunbar Age: 56 yrs Sex: Male : 1965 Arrival Date: 03/17/2022 Time: 10:18 Bed 26 Private MD: Diagnosis: Acute pulmonary edema;End stage renal disease;Hypoxemia Presentation: 03/17 10:30 Chief complaint: Patient states: Sent from [facility], cough, SOB x 2 weeks; jl7 reported 89%. Coronavirus screen: Client presents with at least one sign or symptom that may indicate coronavirus-19. Ebola Screen: No symptoms or risks identified at this time. Initial Sepsis Screen: Does the patient meet any 2 criteria? No. Patient's initial sepsis screen is negative. Does the patient have a suspected source of infection? No. Patient's initial sepsis screen is negative. Risk Assessment: Do you want to hurt yourself or someone else? Patient reports no desire to harm self or others. Onset of symptoms was March 03, 2022. 10:30 Method Of Arrival: Ambulatory jl7 10:30 Acuity: KERRI 3 jl7 Triage Assessment: 10:30 General: Appears in no apparent distress. uncomfortable, Behavior is calm, cooperative, jl7 appropriate for age. Pain: Denies pain. Respiratory: Reports shortness of breath cough that is Airway is patent Respiratory effort is even, labored, Respiratory pattern is symmetrical, tachypnea Onset: The symptoms/episode began/occurred gradually, the patient has moderate shortness of breath. Historical: - Allergies: 10:30 No Known Allergies; jl7 - PMHx: 10:30 Diabetes - NIDDM; Dialysis; High Cholesterol; Hypertension; Hypothyroidism; jl7 - Immunization history:: Adult Immunizations unknown. - Social history:: Smoking status: Patient reports the use of cigarette tobacco products. - Family history:: not pertinent. - Hospitalizations: : No recent hospitalization is reported. Screenin:45 Abuse screen: Denies threats or abuse. Denies injuries from another. Nutritional eh3 screening: No deficits noted. Tuberculosis screening: No symptoms or risk factors identified. Fall Risk None identified. Assessment: 10:33 Reassessment: Dr. Cast in triage assessing pt. jl7 10:39 Reassessment: Pt 88% after ambulating approximately 120 ft and takes approximately 2 jl7 minutes to increase to 90%. 12:04 Reassessment: Patient appears in no apparent distress at this time. Patient and/or ld1 family updated on plan of care and expected duration. Pain level reassessed. Patient is alert, oriented x 3, equal unlabored respirations, skin warm/dry/pink. 13:30 Cardiovascular: Rhythm is sinus rhythm. Respiratory: Airway is patent Respiratory eh3 effort is even, labored, Respiratory pattern is regular, symmetrical, Breath sounds are diminished bilaterally. Vital Signs: 10:30 BP 161 / 67; Pulse 79; Resp 21; Temp 97.9; Pulse Ox 96% on R/A; Pain 0/10; jl7 12:04 BP 166 / 77; Pulse 73; Resp 18; Pulse Ox 93% on R/A; ld1 13:00 BP 167 / 68; Pulse 77; Resp 17; Pulse Ox 96% 2 lpm ; eh3 ED Course: 10:18 Patient arrived in ED. rg4 10:20 Felton Antoine PA is PHCP. cp 10:20 Tomas Cast MD is Attending Physician. cp 10:30 Arm band placed on right wrist. jl7 10:33 Triage completed. jl7 10:43 Dipti Green, SANJAY is Primary Nurse. ld1 10:50 XRAY CXR (1 view) In Process Unspecified. EDMS 11:06 COVID-19/FLU A+B/RSV (Document "Date of Onset" if Symptomatic) Sent. ld1 11:31 Inserted saline lock: 20 gauge in right antecubital area, using aseptic technique. ld1 Blood collected. 12:36 Primitivo Rosario is Hospitalizing Provider. rn 12:44 Danis Bess MD is Hospitalizing Provider. rn 12:45 Patient has correct armband on for positive identification. Placed in gown. Bed in low eh3 position. Call light in reach. Side rails up X2. Client placed on continuous cardiac and pulse oximetry monitoring. NIBP monitoring applied. Door closed. Noise minimized. Lights dimmed. 12:45 Oxygen administration via nasal cannula \\T\\ 2L/min. eh3 12:48 IV with fluids not infusing freely, without good blood return. eh3 13:00 Inserted saline lock: 20 gauge in right antecubital area, using aseptic technique. eh3 Blood collected. 13:02 First RAC IV dc'd, catheter intact, slight swelling at site, no redness, bleeding eh3 controlled, pressure dressing applied, pt denies pain. 13:30 No provider procedures requiring assistance completed. eh3 Administered Medications: 11:06 Drug: Xopenex (levalbuterol) (3) 1.25 mg Route: Inhalation; ld1 11:31 Drug: SOLU-Medrol (methylPrednisoLONE) 125 mg Route: IVP; Site: right antecubital; ld1 12:40 Follow up: Response: No adverse reaction eh3 13:01 Drug: Lasix (furosemide) 60 mg Route: IVP; Site: right antecubital; eh3 14:00 Follow up: Response: No adverse reaction 3 Medication: 13:30 VIS not applicable for this client. eh3 Outcome: 12:36 Decision to Hospitalize by Provider. rn 13:30 Admitted to ER Hold. Please see [facility] for further documentation. 3 13:30 Condition: stable 13:30 Instructed on the need for admit. 23:36 Patient left the ED. 3 Signatures: Dispatcher [employer] EDMS Tomas Cast MD MD rn Page, Corey, PA PA cp Garcia, Rubi rg4 Aida Turcios RN RN jl7 Dipti Green RN RN ld1 Janay Marshall RN RN eh3
[2022-03-17] MEDS ORDERED: FUROSEMIDE 100 MG/10 ML VIAL IV ONE (12:43)
[2022-03-17] MEDS ORDERED: ACETAMINOPHEN 325 MG TABLET PO PRN (14:17)
[2022-03-17] MEDS ORDERED: HYDROCODONE/APAP 5/325 MG TAB PO PRN (14:17)
[2022-03-17] MEDS ORDERED: ALBUTEROL 2.5 MG/3 ML NEB SOL NEB PRN (14:18)
[2022-03-17] MEDS ORDERED: GLUCAGON 1 MG/VIAL IM PRN (14:22)
--- NOTE | 2022-03-17 14:24 | P.HP ---
Certification for Inpatient Patient admitted to: Observation With expected LOS: <2 Midnights Patient will require the following post-hospital care: None Practitioner: I am a practitioner with admitting privileges, knowledge of patient current condition, hospital course, and medical plan of care. Services: Services provided to patient in accordance with Admission requirements found in Title 42 Section 412.3 of the Code of Federal Regulations Patient History Date of Service: 03/17/22 Reason for admission: SOB and cough History of Present Illness: Patient is a 56-year-old male with a past medical history significant for ESRD, DM 2, HLD, hypertension, hypothyroidism, obesity, nicotine dependence who presents with complaint of shortness of breath that has been ongoing for the past 2 weeks. Patient also reported that he has been coughing for the past 2 months. Patient reported associated signs and symptoms of wheezing. Patient denies any other signs and symptoms. Symptoms are aggravated by exertion and relieved by nothing. Patient was seen at an outpatient clinic--[facility] and sent to the ER due to shortness of breath. Allergies No Known Allergies Allergy (Verified 06/16/20 13:22) Home Medications: Albuterol Sulfate [Proair Hfa] 2 puff IH Q4HP PRN 06/25/20 Ergocalciferol (Vitamin D2) [Vitamin D2] 50,000 unit PO SEECOM 06/25/20 Fluticasone [Flonase 50MCG Nasal [place]*] 1 puff IH DAILY 06/25/20 Hydrocodone/Acetaminophen [Hydrocodone-Acetamin 10-325 mg] 1 tab PO Q6HP PRN 06/25/20 Levothyroxine [Synthroid*] 1 tab PO [id number] 06/25/20 Sevelamer Carbonate 1 tab PO TIDWM 06/25/20 levoFLOXacin [Levaquin] 500 mg PO AFTER EACH DIALYSIS #7 tab 06/26/20 - Past Medical/Surgical History Diabetic: Yes -: hypertension -: hypothyroid -: TYPE 2 DIABETES -: Dyslipidemia Past Surgical History: Reviewed- Non-Contributory - Family History Sister -: Diabetes - Social History Smoking Status: Current every day smoker Smoking therapy provided: Yes Patient receptive to therapy: Yes Alcohol use: No CD- Drugs: No Caffeine use: Yes Place of Residence: Home Review of Systems General: Unremarkable Eyes: Unremarkable ENT: Unremarkable Respiratory: Cough, Shortness of Breath, Wheezing Cardiovascular: Unremarkable Gastrointestinal: Unremarkable Genitourinary: Unremarkable Musculoskeletal: Unremarkable Integumentary: Unremarkable Lymphatics: Unremarkable Physical Examination - Physical Exam General: Alert, Oriented x3, Cooperative, Mild distress HEENT: Atraumatic, Normocephalic, PERRLA Neck: Supple, 2+ carotid pulse no bruit, JVD not distended Respiratory: Diminished, Expiratory wheezes, Inspiratory wheezes Cardiovascular: Regular rate/rhythm, Normal S1 S2 Capillary refill: <2 Seconds Gastrointestinal: Normal bowel sounds Musculoskeletal: No clubbing, No swelling, No contractures, No erythema, No tenderness Integumentary: No rashes, No breakdown, No significant lesion, No tenderness/swelling Neurological: Normal speech, Normal tone, Normal affect Lymphatics: No axilla or inguinal lymphadenopathy - Studies Laboratory Data (last 24 hrs) 03/17/22 11:35: PT 10.6, INR 0.96, APTT 29.0 03/17/22 11:35: WBC 10.80, Hgb 10.8 L, Hct 31.9 L, Plt Count 330 03/17/22 11:35: Sodium 136, Potassium 4.2, BUN 80 H, Creatinine 10.30 H*, Glucose 128 H Assessment and Plan - Plan --Acute pulmonary edema. Patient on hemodialysis. Patient given Lasix in the ER. Nephrology consulted. Echocardiogram pending to rule out CHF. We will await further recommendation from evp. --ESRD. Further management per evp. --DM2. BS monitoring with sliding scale insulin. --Hypertension. BP Poorly controlled. We will manage BP with hydralazine as needed. -- Hypothyroidism. Continue Synthroid. --Nicotine dependence. Patient counseled on tobacco cessation. Refuses nicotine patch. --Hyperlipidemia. Patient placed on statin. --Obesity. Likely secondary to sedentary lifestyle and excess calories intake. Patient counseled on weight reduction, diet and exercise therapy. --Anemia of chronic disease. H&H stable. We will continue to monitor hemoglobin and transfuse if less than 7.0. --DVT prophylaxis with heparin subQ. Discharge Plan: Home Plan to discharge in: 48 Hours - Advance Directives Does patient have a Living Will: No Does patient have a Durable POA for Healthcare: No - Code Status/Comfort Care Code Status Assessed: Yes Physician Review: Patient Assessed, Agree with Above Assessment and Plan Critical Care: No
[2022-03-17] MEDS ORDERED: D10W 250 ML BAG IV PRN (14:31)
[2022-03-17 15:48] LABS: Phosphorus 2.4 mg/dL (2.5-4.9)
[2022-03-17] MEDS: ASPIRIN EC 81 MG TAB PO SCH (16:00)
[2022-03-17] MEDS: INSULIN -REGULAR HUMAN 50 UNIT/0.5 ML ML SQ SCH ×2 (16:30→21:00)
[2022-03-17] MEDS: SEVELAMER CARBONATE 800 MG TABLET PO SCH (17:00)
[2022-03-17] MEDS ORDERED: ASPIRIN EC 81 MG TAB PO ONE (19:44)
[2022-03-17 20:17] LABS: Thyroid Stimulating Hormone 54.3 uIU/mL (0.360-3.740)
[2022-03-17] MEDS ORDERED: HEPARIN 5000 UNIT/ML 1 ML VIAL ONE (20:39)
[2022-03-17] MEDS ORDERED: HYDRALAZINE HCL 20 MG/ML VIAL ONE (20:40)
[2022-03-17] MEDS ORDERED: ATORVASTATIN 20 MG TAB ONE (20:40)
[2022-03-17] MEDS ORDERED: ALBUTEROL 2.5 MG/3 ML NEB SOL ONE (20:40)
[2022-03-17] MEDS ORDERED: INSULIN -REGULAR HUMAN 50 UNIT/0.5 ML ML ONE (20:41)
[2022-03-17] MEDS: HEPARIN 5000 UNIT/ML 1 ML VIAL SQ SCH (21:00)
[2022-03-17] MEDS: ATORVASTATIN 40 MG TAB PO SCH (21:00)
[2022-03-17] MEDS: HYDRALAZINE HCL 20 MG/ML VIAL IV PRN (21:15)
[2022-03-18 03:49] LABS: Absolute Lymphocytes (CBC) 0.7 K/uL (0.7-4.9); Hematocrit 29.1 % (39.6-49.0); Lymphocytes % 7.3 % (15.3-44.8); MPV 7.6 fL (7.6-11.3); RBC Red Blood Cell Count 3.03 M/uL (4.33-5.43)
[2022-03-18 04:08] LABS: Potassium 4.7 mmol/L (3.5-5.1)
[2022-03-18] MEDS: LEVOTHYROXINE SOD 0.075 MG TAB PO SCH (06:02)
[2022-03-18] MEDS: INSULIN -REGULAR HUMAN 50 UNIT/0.5 ML ML SQ SCH ×4 (07:30→21:00)
[2022-03-18] MEDS ORDERED: INFLUENZA VACCINE (for 6+ mo) 0.5 ML DOSE IMVAC ONE (08:00)
[2022-03-18] MEDS: SEVELAMER CARBONATE 800 MG TABLET PO SCH ×3 (08:12→16:57)
[2022-03-18] MEDS: HEPARIN 5000 UNIT/ML 1 ML VIAL SQ SCH ×2 (08:12→21:00)
[2022-03-18] MEDS: FOLIC ACID 1 MG TABLET PO SCH (08:13)
[2022-03-18] MEDS: HOME MED 1 EA UNK [FLUTICASONE 50MCG NASAL SPRAY] NAS SCH (08:13)
[2022-03-18] MEDS: ASPIRIN EC 81 MG TAB PO SCH (08:13)
[2022-03-18] MEDS ORDERED: THIAMINE HCL 100 MG TABLET PO SCH (09:00)
[2022-03-18] MEDS ORDERED: POTASS/SODIUM PHOSPHATE 1 PKT POWD.PACK PO SCH (09:00)
[2022-03-18] MEDS: EPOETIN 4,000 UNIT/ML VIAL IV SCH (15:15)
--- NOTE | 2022-03-18 17:50 | CON ---
Date of Consultation: 03/18/2022 Reason For Consultation: Elevated BUN and creatinine, fluid management, overvolume. History Of Present Illness: This is a 56-year-old gentleman with significant past medical history of hypertension, diabetes complicated with neuropathy and nephropathy, hyperlipidemia, hypothyroidism, secondary hyperparathyroid. Patient came to the hospital complaining from shortness of breath, orthopnea. Patient found to be overvolume. Patient's last dialysis was Wednesday according to the patient and he had 3 L was removed. Patient's symptoms had been worsening over the last 2 weeks. Past Medical History: Include: 1. Diabetes complicated with neuropathy. 2. Hypertension. 3. Hyperlipidemia. 4. CAD. 5. End-stage renal disease, on hemodialysis Wednesday, Wednesday, Wednesday. Allergies: NO KNOWN DRUG ALLERGIES. Home Medications: Include albuterol, ergocalciferol, hydrocortisone, levothyroxine, Renvela, and levofloxacin. Past Surgical History: Includes AV fistula creation. Family History: Positive for hypertension and diabetes. Social History: Active smoker. Denied alcohol. Denied drugs abuse. Review of Systems: Head and Neck: No red eye. No ear pain. GI: No nausea. No vomiting. : No polyuria. No dysuria. No hematuria. Radius Grinder: Not applicable. Respiratory: Has shortness of breath. Has cough. Cardiovascular: Has orthopnea. Endocrine: No polydipsia. Skin: No rash. Neuro: Has neuropathy. Musculoskeletal: No joint pain. Physical Examination: Vital Signs: When I saw the patient, blood pressure 157/78, pulse of 78, afebrile. Chest: Crackles, bilateral base. Heart: S1, S2. Systolic murmur. Abdomen: Soft, nontender. Extremity: Trace edema. Neurologic: Alert. No focality. Laboratory Data: Hemoglobin 9.7, sodium 136, potassium 4.7, bicarb 23, BUN 103, creatinine 11.8, calcium 7.5. BNP 22,000. Assessment And Plan: 1. End-stage renal disease, overvolume. I am going to go ahead and arrange for the dialysis today. We will challenge the patient. 2. Hypertension, controlled. We will utilize blood pressure for more ultrafiltration. 3. Congestive heart failure with exacerbation. We will follow up the patient. We will do dialysis today and tomorrow. 4. Coronary artery disease, possible non-ST elevation. We will follow up with the primary. We will try to establish better volume control. 5. Diabetes as by primary. 6. Secondary hyperparathyroidism. Continue current treatment. 7. Anemia of chronic kidney disease. Resume Retacrit. 8-respiratory failure failure multifactorial secondary to pneumonia superimposed with normal volume we will do daily dialysis continue current antibiotic we will follow-up with the primary Time spent examining the patient [id number], reviewing data, lab and radiology, discussing the case with the patient, discussing the case with trampoline team coach including nursing and hospitalist more than 65 minutes JESUS Voice ID: [id number] Report ID: [id number] EFREN
--- NOTE | 2022-03-18 19:03 | EKG ---
Test Date: 2022-03-17 Test Time: 10:52:25 Tin Roofer: SHARON MEASUREMENT RESULTS: Intervals: Rate: 73 OH: 136 QRSD: 86 QT: 418 QTc: 460 [place]: P: 33 OH: 136 QRS: 65 T: 95 INTERPRETIVE STATEMENTS: Normal sinus rhythm Nonspecific ST and T wave abnormality Abnormal ECG Compared to ECG 12/22/2021 09:16:58 ST (T wave) deviation now present Electronically Signed On 03-18-22 19:00:40 LATIN DANCE INSTRUCTOR by Christopher Roblero
[2022-03-18] MEDS: ATORVASTATIN 40 MG TAB PO SCH (20:58)
[2022-03-19] MEDS: DIPHENHYDRAMINE 25 MG TAB/CAP PO PRN (00:34)
[2022-03-19 04:33] LABS: Potassium 4.5 mmol/L (3.5-5.1)
[2022-03-19] MEDS: MUCINEX DM 12HR.SR TAB PO PRN ×2 (04:53→21:11)
[2022-03-19] MEDS: LEVOTHYROXINE SOD 0.075 MG TAB PO SCH (05:50)
[2022-03-19] MEDS: INSULIN -REGULAR HUMAN 50 UNIT/0.5 ML ML SQ SCH ×4 (07:30→21:00)
[2022-03-19] MEDS: HOME MED 1 EA UNK [FLUTICASONE 50MCG NASAL SPRAY] NAS SCH (07:57)
[2022-03-19] MEDS: ASPIRIN EC 81 MG TAB PO SCH (07:58)
[2022-03-19] MEDS: FOLIC ACID 1 MG TABLET PO SCH (07:58)
[2022-03-19] MEDS: HEPARIN 5000 UNIT/ML 1 ML VIAL SQ SCH ×2 (07:58→21:17)
[2022-03-19] MEDS: SEVELAMER CARBONATE 800 MG TABLET PO SCH ×3 (07:58→16:50)
--- NOTE | 2022-03-19 08:17 | ECHO ---
HEIGHT: 5 ft 4 in WEIGHT: 169 lb 12.095 oz DATE OF STUDY: 03/18/[address]: Naman Anguiano 2-DIMENSIONAL: YES M.MODE: YES DOPPLER: YES COLOR FLOW: YES TDS: YES PORTABLE: YES DEFINITY: NO BUBBLE STUDY: NO DIAGNOSIS: RULE OUT CONGESTIVE HEART FAILURE CARDIAC HISTORY: CATHERIZATION: NO SURGERY: NO PROSTHETIC VALVE: NO PACEMAKER: NO MEASUREMENTS (cm) DIASTOLIC (NORMALS) SYSTOLIC (NORMALS) IVSd 0.9 (0.6-1.2) LA Diam 2.5 (1.9-4.0) LVEF 55% LVIDd 4.3 (3.5-5.7) LVIDs 3.1 (2.0-3.5) %FS 29% LVPWd 1.0 (0.6-1.2) Ao Diam 2.1 (2.0-3.7) 2 DIMENSIONAL ASSESSMENT: RIGHT ATRIUM: NORMAL LEFT ATRIUM: NORMAL RIGHT VENTRICLE: NORMAL LEFT VENTRICLE: NORMAL TRICUSPID VALVE: NORMAL MITRAL VALVE: NORMAL PULMONIC VALVE: NORMAL AORTIC VALVE: NORMAL PERICARDIAL EFFUSION: NONE AORTIC ROOT: NORMAL LEFT VENTRICULAR WALL MOTION: NORMAL DOPPLER/COLOR FLOW: SEVERE PULMONARY HYPERTENSION. COMMENTS: 1. SEVERE PULMONARY HYPERTENSION. RIGHT VENTRICULAR SYSTOLIC PRESSURE 55 mmHg. 2. NORMAL LEFT VENTRICULAR SIZE AND FUNCTION. 3. NO WALL MOTION ABNORMALITY. 4. NO EFFUSION. TECHNOLOGIST: Melody GREGORIO
[2022-03-19] MEDS ORDERED: METHYLPRED NA SUC 60 MG in NA CHLORIDE 0.9% 100 ML IV ONE (09:59)
[2022-03-19] MEDS ORDERED: CEFTRIAXONE 1,000 MG in NA CHLORIDE 0.9% 50 ML IVPB ONE (09:59)
[2022-03-19] MEDS ORDERED: METHYLPREDNISOLONE 125 MG INJ IV ONE (10:00)
--- NOTE | 2022-03-19 11:58 | P.PN ---
Subjective Date of Service: 03/18/22 Subjective: No new changes, No C/O voiced, Improving Review of Systems 10-point ROS is otherwise unremarkable Physical Examination - Vital Signs Temperature: 97.8 F Blood Pressure: 176/76 Pulse: 71 Respirations: 18 Pulse Ox (%): 90 - Physical Exam General: Alert, In no apparent distress HEENT: Atraumatic, PERRLA, EOMI Neck: Supple, JVD not distended Respiratory: Clear to auscultation bilaterally, Normal air movement Cardiovascular: Regular rate/rhythm, Normal S1 S2 Gastrointestinal: Normal bowel sounds, No tenderness Musculoskeletal: No tenderness Integumentary: No rashes Neurological: Normal speech, Normal tone, Normal affect Lymphatics: No axilla or inguinal lymphadenopathy - Studies Medications List Reviewed: Yes Assessment & Plan - Problems (Diagnosis) (1) Pharyngitis Current Visit: Yes Status: Acute (2) DM type 2 (diabetes mellitus, type 2) Current Visit: No Status: Acute (3) ESRD (end stage renal disease) on dialysis Current Visit: No Status: Acute (4) Hypothyroidism Current Visit: No Status: Acute (5) Volume overload Current Visit: No Status: Acute - Plan Plan: 1. Continue with IV antibiotic therapy 2. Continue with hemodialysis per nephrology 3. Outpatient psych follow-up 4. ENT follow-up if recurrent pharyngitis symptoms 5. GI DVT prophylaxis Discharge Plan: Home Plan to discharge in: Greater than 2 days - Advance Directives Does patient have a Living Will: No Does patient have a Durable POA for Healthcare: No - Code Status/Comfort Care Code Status Assessed: Yes Code Status: Full Code Physician Review: Patient Assessed, Agree with Above Assessment and Plan Critical Care: No Time Spent Managing PTS Care (In Minutes): 35
--- NOTE | 2022-03-19 11:59 | P.DS ---
Discharge Date: 03/19/22 Disposition: TRANSFER TO INPATIENT REHAB Discharge Condition: GOOD Reason for Admission: SOB and cough - Problems (1) Pharyngitis Current Visit: Yes Status: Acute (2) DM type 2 (diabetes mellitus, type 2) Current Visit: No Status: Acute (3) ESRD (end stage renal disease) on dialysis Current Visit: No Status: Acute (4) Hypothyroidism Current Visit: No Status: Acute (5) Volume overload Current Visit: No Status: Acute Brief History of Present Illness: Patient is a 56-year-old male with a past medical history significant for ESRD, DM 2, HLD, hypertension, hypothyroidism, obesity, nicotine dependence who presents with complaint of shortness of breath that has been ongoing for the past 2 weeks. Patient also reported that he has been coughing for the past 2 months. Patient reported associated signs and symptoms of wheezing. Patient denies any other signs and symptoms. Symptoms are aggravated by exertion and relieved by nothing. Patient was seen at an outpatient clinic[facility] and sent to the ER due to shortness of breath. Hospital Course: Patient is doing much better after hemodialysis. He had a session yesterday. They will repeat a session today. His O2 sats are 93% when ambulating. However, when he lays down they dropped to 85%. We will get him oxygen so he can wear it at night when he sleeping. Otherwise, his respiratory status has improved. He does have some upper respiratory symptoms which were treated with antibiotics and steroids at discharge. Outpatient follow-up with PCP and nephrology for hemodialysis. He should discharge after his hemodialysis session today. Vital Signs/Physical Exam: Temp Pulse Resp BP Pulse Ox 97.8 F 71 18 176/76 H 90 L 03/19/22 11:57 03/19/22 11:57 03/19/22 11:57 03/19/22 11:57 03/19/22 11:57 General: Alert, In no apparent distress, Oriented x3 Laboratory Data at Discharge: WBC 9.30 K/uL (4.3-10.9) 03/18/22 03:18 Hgb 9.7 g/dL (13.6-17.9) L D 03/18/22 03:18 Hct 29.1 % (39.6-49.0) L 03/18/22 03:18 Plt Count 293 K/uL (152-406) 03/18/22 03:18 PT 10.6 SECONDS (9.5-12.5) 03/17/22 11:35 INR 0.96 03/17/22 11:35 APTT 29.0 SECONDS (24.3-36.9) 03/17/22 11:35 Sodium 136 mmol/L (136-145) 03/19/22 03:46 Potassium 4.5 mmol/L (3.5-5.1) 03/19/22 03:46 BUN 75 mg/dL (7-18) H 03/19/22 03:46 Creatinine 9.27 mg/dL (0.55-1.3) H* 03/19/22 03:46 Glucose 110 mg/dL (74-106) H 03/19/22 03:46 Phosphorus 2.4 mg/dL (2.5-4.9) L 03/17/22 11:35 Magnesium 2.0 mg/dL (1.8-2.4) 03/17/22 11:35 Home Medications: Albuterol Sulfate [Proair Hfa] 2 puff IH Q4HP PRN 06/25/20 Ergocalciferol (Vitamin D2) [Vitamin D2] 50,000 unit PO SEECOM 06/25/20 Fluticasone [Flonase 50MCG Nasal [place]*] 1 puff IH DAILY 06/25/20 Hydrocodone/Acetaminophen [Hydrocodone-Acetamin 10-325 mg] 1 tab PO Q6HP PRN 06/25/20 Levothyroxine [Synthroid*] 1 tab PO [id number] 06/25/20 Sevelamer Carbonate 1 tab PO TIDWM 06/25/20 Azithromycin Tab [Zithromax*] 250 mg PO DAILY #5 tab 03/19/22 Cefdinir [Cefdinir*] 300 mg PO BID #14 cap 03/19/22 Guaifenesin [Mucinex] 600 mg PO Q12H PRN #30 tab 03/19/22 predniSONE [Deltasone] 20 mg PO BID #11 tab 03/19/22 Fluticasone/Salmeterol [Advair 250-50 Diskus] 1 each IH BID 30 Days #60 aero 03/20/22 New Medications: Fluticasone/Salmeterol [Advair 250-50 Diskus] 1 each IH BID 30 Days #60 aero Cefdinir [Cefdinir*] 300 mg PO BID #14 cap Guaifenesin [Mucinex] 600 mg PO Q12H PRN #30 tab PRN Reason: Cough predniSONE [Deltasone] 20 mg PO BID #11 tab Azithromycin Tab [Zithromax*] 250 mg PO DAILY #5 tab Physician Discharge Instructions: -DC IV and DC home -Follow-up with PCP in 1 to 2 weeks -Follow-up with Nephrology for HD as scheduled -Follow-up with pulmonary for severe pulmonary hypertension -Please call Dr. Bess at [phone] if any questions regarding hospital stay -Please call nursing station at [phone] if any nursing or medication questions -Return to the emergency room if symptoms worsen Diet: Renal Activity: Fall precautions Followup: Justice Gonzales MD [ACTIVE - CAN ADMIT] - Erwin Arenas [ACTIVE - CAN ADMIT] - Mery Reich DO [ACTIVE - CAN ADMIT] - NONE,NONE [Primary Care Provider] - Time spent managing pt's care (in minutes): 35
[2022-03-19] MEDS: EPOETIN 4,000 UNIT/ML VIAL IV SCH (14:45)
[2022-03-19] MEDS: HYDRALAZINE HCL 20 MG/ML VIAL IV PRN (16:50)
--- NOTE | 2022-03-19 18:41 | RAD REPORT ---
EXAM DESCRIPTION: RAD - Chest Single View - 03/19/2022 6:19 pm CLINICAL HISTORY: hypoxia COMPARISON: Chest Single View dated 03/17/2022; Chest Single View dated 12/22/2021; Chest Single View dated 11/23/2020; Chest Single View dated 06/25/2020 FINDINGS: Lines: None. Lungs: Low lung volumes. Prominence of the pulmonary interstitium. Pleural: No significant pleural effusions or pneumothorax. Cardiac: Cardiomegaly. Mediastinum: Within normal limits. Bones: No acute fractures. Other: None IMPRESSION: Prominence of the pulmonary interstitium could reflect pneumonia versus accentuation of vascular markings due to low lung volumes.
[2022-03-19] MEDS: ATORVASTATIN 40 MG TAB PO SCH (21:11)
--- NOTE | 2022-03-19 21:56 | PN ---
Date of Progress Note: 03/19/2022 Subjective: The patient was admitted with pneumonia and over volume. The patient dialyzed yesterday. The patient still complaining of shortness of breath and has visual and voice hallucination today. Physical Examination: Vital Signs: Blood pressure 186/80, pulse of 79. Chest: Crackles at right base. Heart: S1, S2. Systolic murmur. Abdomen: Morbidly obese. Could not appreciate any organomegaly. Extremities: Trace edema./ Neuro: Alert. No focality. Laboratory Data: Hemoglobin 9.7. Sodium 136, potassium 4.5, bicarb 27, BUN 75, creatinine 9.2, calcium 7.7. Urinalysis still pending. Current Medications: 1. Heparin. 2. Epogen. 3. Atorvastatin. 4. Hydralazine. 5. Renvela. 6. Folic acid. 7. Levothyroxine. 8. Solu-Medrol. Assessment And Plan: 1. End-stage renal disease, over volume. We will do extra dialysis today and we will do his dialysis for tomorrow as full dialysis and we will monitor the patient. 2. Hypertension. We will continue to utilize blood pressure for more ultrafiltration. 3. Anemia of chronic kidney disease. Continue SUMIT. 4. Respiratory failure secondary to over volume and pneumonia. Continue current antibiotic. We will challenge the patient. Time spent examining the patient [id number], reviewing data, lab and radiology, discussing the case with the patient, discussing the case with contact center team lead including nursing and hospitalist more than 35 minutes JESUS Voice ID: [id number] Report ID: [id number]
[2022-03-20] MEDS: LEVOTHYROXINE SOD 0.075 MG TAB PO SCH (06:33)
[2022-03-20 06:41] LABS: Absolute Lymphocytes (CBC) 1.4 K/uL (0.7-4.9); Hematocrit 29.2 % (39.6-49.0); MCV 95.5 fL (80-100); MPV 7.6 fL (7.6-11.3); RBC Red Blood Cell Count 3.06 M/uL (4.33-5.43)
[2022-03-20 07:02] LABS: Bilirubin Total 0.7 mg/dL (0.2-1.0); Potassium 5.4 mmol/L (3.5-5.1)
[2022-03-20] MEDS: INSULIN -REGULAR HUMAN 50 UNIT/0.5 ML ML SQ SCH ×4 (07:30→20:33)
--- NOTE | 2022-03-20 08:18 | RAD REPORT ---
EXAM DESCRIPTION: CT - Soft Tissue Neck W/Contr - 03/20/2022 7:45 am CLINICAL HISTORY: pharyngitis COMPARISON: Head C Spine Mpr Wo Con dated 11/23/2020; Soft Tissue Neck Wo Contr dated 06/16/2020 TECHNIQUE: During dynamic enhancement using 100 milliliters nonionic IV contrast, axial 5 millimeter thick images of the neck were obtained. All CT scans are performed using dose optimization technique as appropriate and may include automated exposure control or mA/KV adjustment according to patient size. FINDINGS: No acute intracranial findings. Patient has a known arachnoid cyst in the left middle cran ial fossa. Close and orbital contents are not sufficiently visualized. Mastoid air cells are clear. P artially visualized paranasal sinuses also clear. There is thickening of the soft palate and uvula. Prominent, symmetric tonsillar tissues noted with n o peritonsillar abscess. The adjacent parapharyngeal fat shows no abnormal congestion or edema. Adeno id tissues are prominent. There is prominence of the prevertebral soft tissues of the nasopharynx and uppermost oropharynx. The these findings combine to narrow the airway. No retropharyngeal abscess or other surgically emergent finding. Valleculae and pyriform sinuses have an unremarkable appearance. Vocal cord asymmetry is noted. There is no history of cord paralysis. Laryngeal region is limited by motion. There is some fullness poste rior left supraglottic soft tissues but no definitive mass seen. No abnormal cervical lymphadenopathy. No acute vascular finding. Bony degenerative changes are present. IMPRESSION: Prominence of the tonsils in soft tissues of the upper airway. This has a pharyngitis or other viral infiltrative process appearance. No retropharyngeal abscess, peritonsillar abscess or other surgically emergent finding. Posterior left supraglottic soft tissue fullness probably artifact of motion rather than mass. Vocal cord asymmetry is present. Follow-up outpatient direct visualization may be needed. Repeat examination when the patient can have better control of movement may be helpful as well.
--- NOTE | 2022-03-20 08:22 | RAD REPORT ---
EXAM DESCRIPTION: CT - Thorax W/ Con - 03/20/2022 7:45 am CLINICAL HISTORY: ? pneumonia COMPARISON: Head C Spine Mpr Wo Con dated 11/23/2020; Chest Single View dated 03/19/2022 TECHNIQUE: Dynamically enhanced 5 mm thick images of the chest were obtained during administration o f 100 mL non-ionic IV contrast. All CT scans are performed using dose optimization technique as appropriate and may include automated exposure control or mA/KV adjustment according to patient size. FINDINGS: No focal mass or consolidations seen. Patchy opacification in each posterior gutter is bel ieved to be atelectasis rather than focal pneumonia. Interstitial markings are not grossly abnormal. A mild interstitial edema or infiltrate would still be possible. No endobronchial lesions seen. No pl eural thickening or pleural effusion. No pneumothorax. No chest wall mass or abnormal axillary lympha denopathy. No abnormal mediastinal or hilar mass or lymphadenopathy seen. A 9 mm pulmonary nodule is seen in the right apex. This was not evident on [address] cervical sp ine exam that included the apex in the [id number]. No other pulmonary nodules seen. IMPRESSION: No focal pneumonia seen. There are atelectasis changes in each posterior gutter. Mild vi ral infiltrate or interstitial edema are still possible. A 9 mm pulmonary nodule is present in the right apex new from October 2020 imaging. No other pulmonary n odule seen. At 9 mm, the mass should be amenable to assessment with PET-CT imaging. Alternatively, r eassessment in 3 months could be performed to monitor for growth.
[2022-03-20] MEDS: HOME MED 1 EA UNK [FLUTICASONE 50MCG NASAL SPRAY] NAS SCH (09:00)
[2022-03-20] MEDS: HEPARIN 5000 UNIT/ML 1 ML VIAL SQ SCH ×2 (09:24→20:29)
[2022-03-20] MEDS: ASPIRIN EC 81 MG TAB PO SCH (09:24)
[2022-03-20] MEDS: SEVELAMER CARBONATE 800 MG TABLET PO SCH ×3 (09:24→16:24)
[2022-03-20] MEDS: FOLIC ACID 1 MG TABLET PO SCH (09:25)
--- NOTE | 2022-03-20 10:17 | P.CNS ---
Date of Consult: 03/20/22 Reason for Consult: Pulmonary hypertension end-stage renal disease Chief Complaint: SOB and cough History of Present Illness: Patient is 56 years of age with end-stage renal disease metabolic syndrome admitted for shortness of breath for 2 weeks is a very poor historian very difficult to understand and he has been coughing and wheezing was seen at the outpatient [facility] [facility] to the ER for worsening shortness of breath Allergies No Known Allergies Allergy (Verified 06/16/20 13:22) Home Medications: Albuterol Sulfate [Proair Hfa] 2 puff IH Q4HP PRN 06/25/20 Ergocalciferol (Vitamin D2) [Vitamin D2] 50,000 unit PO SEECOM 06/25/20 Fluticasone [Flonase 50MCG Nasal [place]*] 1 puff IH DAILY 06/25/20 Hydrocodone/Acetaminophen [Hydrocodone-Acetamin 10-325 mg] 1 tab PO Q6HP PRN 06/25/20 Levothyroxine [Synthroid*] 1 tab PO [id number] 06/25/20 Sevelamer Carbonate 1 tab PO TIDWM 06/25/20 Azithromycin Tab [Zithromax*] 250 mg PO DAILY #5 tab 03/19/22 Cefdinir [Cefdinir*] 300 mg PO BID #14 cap 03/19/22 Guaifenesin [Mucinex] 600 mg PO Q12H PRN #30 tab 03/19/22 predniSONE [Deltasone] 20 mg PO BID #11 tab 03/19/22 Fluticasone/Salmeterol [Advair 250-50 Diskus] 1 each IH BID 30 Days #60 aero 03/20/22 - Past Medical/Surgical History Diabetic: Yes -: hypertension -: hypothyroid -: TYPE 2 DIABETES -: Dyslipidemia - Family History Sister Medical History: Diabetes - Social History Smoking Status: Unknown if ever smoked Alcohol use: No CD- Drugs: No Caffeine use: Yes Place of Residence: Home Review of Systems is unable to be obtained Physical Examination Temp Pulse Resp BP Pulse Ox 97.2 F 80 20 183/84 H 90 L 03/20/22 08:00 03/20/22 08:00 03/20/22 08:00 03/20/22 08:00 03/20/22 08:00 General: Alert, Mild distress Respiratory: Friction rub, Expiratory wheezes Cardiovascular: Regular rate/rhythm, Normal S1 S2 - Problems (1) Pulmonary hypertension Current Visit: Yes Status: Acute Plan: Patient is a 56 years of age end-stage renal disease on dialysis admitted with worsening dyspnea patient has severe pulmonary hypertension on echo no evidence of right ventricular dilatation right upper lobe apical opacity patient is an active smoker may have underlying COPD will need outpatient lung function testing bronchodilator at home at risk for sleep apnea need an outpatient sleep study CT of the neck did not show any evidence of obvious obstruction excessive soft tissue agree with discharge on low-dose steroids plus a bronchodilator outpatient treatment for possible pulmonary hypertension after her dilator therapy has been optimized pulmonary function testing and sleep apnea has been treated right now I sent a prescription for Advair (2) Abnormal CT scan, chest Current Visit: Yes Status: Acute Plan: Patient has right upper lobe/apical opacity is an active smoker will need to follow-up Radiologist report A 9 mm pulmonary nodule is present in the right apex new from October 2020 imaging. No other pulmonary nodule seen. At 9 mm, the mass should be amenable to assessment with PET-CT imaging. Alternatively, reassessment in 3 months could be performed to monitor for growth
[2022-03-20] MEDS: EPOETIN 4,000 UNIT/ML VIAL IV SCH (10:30)
--- NOTE | 2022-03-20 17:10 | P.PN ---
Subjective Date of Service: 03/20/22 Chief Complaint: SOB and cough No acute events overnight. He reports that he continues to have shortness of breath and dry cough. He denies any chest pain or palpitations. Review of Systems 10-point ROS is otherwise unremarkable Respiratory: Cough, Shortness of Breath Physical Examination - Vital Signs Temperature: 97.5 F Blood Pressure: 177/90 Pulse: 77 Respirations: 18 Pulse Ox (%): 97 - Physical Exam General: Alert, In no apparent distress, Oriented x3 HEENT: Atraumatic, PERRLA, Mucous membr. moist/pink, EOMI, Sclerae nonicteric Neck: Supple, JVD not distended Respiratory: Diminished, Crackles/rales Cardiovascular: Regular rate/rhythm, Normal S1 S2, No gallops, No rubs, No murmurs, Edema (trace) Gastrointestinal: Normal bowel sounds, Soft and benign, Non-distended, No tenderness, No rebound, No guarding Musculoskeletal: No clubbing Integumentary: No rashes Neurological: Normal speech (muffled voice), Cranial nerves 3-12 intact, Normal affect - Studies Medications List Reviewed: Yes Assessment And Plan - Plan # Hypervolemia in End-Stage Renal Disease on MWF iHD # Acute Viral Pharnygitis # Posterior Left Supraglottic Soft Tissue Fullness with Vocal Cord Asymmetry # Severe Pulmonary Hypertension # Right Pulmonary Nodule (9 mm) # Suspect Steroid-Induced Leukocytosis - Evaluation thus far: - Chest x-ray = "prominence of the pulmonary interstitium could reflect pneumonia versus accentuation of vascular markings due to low lung volumes." - CT chest = "no focal pneumonia seen. There are atelectasis changes in each posterior gutter. Mild viral infiltrate or interstitial edema are still possible. A 9 mm pulmonary nodule is present in the right apex new from October 2020 imaging. No other pulmonary nodule seen. At 9 mm, the mass should be amenable to assessment with PET-CT imaging. Alternatively, reassessment in 3 months could be performed to monitor for growth." - CT neck = "prominence of the tonsils in soft tissues of the upper airway. This has a pharyngitis or other viral infiltrative process appearance. No retropharyngeal abscess, peritonsillar abscess or other surgically emergent finding. Posterior left supraglottic soft tissue fullness probably artifact of motion rather than mass. Vocal cord asymmetry is present. Follow-up outpatient direct visualization may be needed. Repeat examination when the patient can have better control of movement may be helpful as well." - Transthoracic echocardiogram = "1. severe pulmonary hypertension. right ventricular systolic pressure 55 mmHg. 2. normal left ventricular size and function. 3. no wall motion abnormality. 4. no effusion." - Management plan: - Consulted Pulmonary Medicine and spoke with Dr. Gonzales - recommendations appreciated - Consulted Nephrology and spoke with Dr. Reno - recommendations appreciated - Volume removal via hemodialysis - Consulted Otorhinolaryngology - recommendations appreciated # Type II Diabetes Mellitus - Correction scale insulin # Hypothyroidism - TSH = 54.3, Free T4 0.69 - Continue home levothyroxine Ramsey Brizuela M.D.
--- NOTE | 2022-03-20 17:44 | P.PN ---
Subjective Date of Service: 03/20/22 Chief Complaint: SOB and cough Subjective: No new changes Physical Examination - Vital Signs Temperature: 97.5 F Blood Pressure: 177/90 Pulse: 77 Respirations: 18 Pulse Ox (%): 97 - Physical Exam General: Other (Chronically ill appearing) HEENT: Atraumatic, Normocephalic Neck: Supple Respiratory: Other (symmetric chest expansion) Cardiovascular: No rubs, No murmurs Gastrointestinal: Soft and benign, No guarding Musculoskeletal: No clubbing Integumentary: No warmth Neurological: Normal speech, Normal tone Urinary: Other (No bladder distention) External genitalia: Deferred Rectal: Deferred - Studies Medications List Reviewed: Yes Assessment And Plan - Plan 1. End-stage renal disease. Received HD today. 2. Volume overload. HD today as above. 3. Hypertension. We will continue to utilize blood pressure for more ultrafiltration. 4. Anemia of chronic kidney disease. Continue SUMIT. 5. Respiratory failure secondary to over volume and pneumonia. Hx of severe pulmo Htn. Continue current antibiotic. HD/UF as above. 6. Renal osteodystrophy. Monitor Ca & Phos. Physician Review: Patient Assessed, Agree with Above Assessment and Plan
[2022-03-20] MEDS: ATORVASTATIN 40 MG TAB PO SCH (20:28)
[2022-03-20] MEDS: HYDRALAZINE HCL 20 MG/ML VIAL IV PRN (20:28)
[2022-03-20] MEDS: MUCINEX DM 12HR.SR TAB PO PRN (22:06)
[2022-03-20] MEDS: DIPHENHYDRAMINE 25 MG TAB/CAP PO PRN (23:22)
[2022-03-21] MEDS ORDERED: METHYLPREDNISOLONE 125 MG INJ IV ONE (03:57)
[2022-03-21] MEDS ORDERED: EPINEPHRINE INH 0.5 ML VIAL IH ONE (03:58)
[2022-03-21] MEDS ORDERED: EPINEPHRINE INH 0.5 ML VIAL IH STA (03:58)
[2022-03-21] MEDS ORDERED: RSI MEDICATION KIT IV ONE (04:18)
[2022-03-21] MEDS ORDERED: KETAMINE HCL 500 MG/5 ML VIAL ONE (04:22)
[2022-03-21] MEDS ORDERED: MIDAZOLAM HCL 5 ML ONE (04:32)
[2022-03-21] MEDS: propofoL 1,000 MG/100 ML VIAL IV SCH ×2 (04:32→08:42)
[2022-03-21] MEDS ORDERED: propofoL 1,000 MG/100 ML VIAL IV ONE (04:35)
--- NOTE | 2022-03-21 05:11 | P.PN ---
Date of Service: 03/21/22 I was called by nursing staff as patient was experiencing respiratory distress. Upon arrival to inpatient room patient had developed sudden onset of stridor, he was in moderate distress. He was given racemic epinephrine as well as Solu- Medrol transferred to the intensive care unit immediately. ED physician was called given anticipation of impending airway compromise, case discussed with hospitalist attending. Patient did not have significant improvement in stridor with racemic epi/steroids and continued to worsening. ED physician performed intubation with video-assisted laryngoscopy, delayed sequence intubation with ketamine. Intubated first-pass success, chest x-ray ordered and pending. Saturations improved to 100%. Attempted to reach out to brother multiple times with no answer. Then later order set placed, ABG ordered. We will continue to monitor closely in the ICU setting.
[2022-03-21 05:37] LABS: Absolute Lymphocytes (CBC) 0.8 K/uL (0.7-4.9); Hematocrit 28.4 % (39.6-49.0); Lymphocytes % 6.4 % (15.3-44.8); MCV 95.7 fL (80-100); MPV 7.8 fL (7.6-11.3); RBC Red Blood Cell Count 2.97 M/uL (4.33-5.43)
[2022-03-21 05:48] LABS: Potassium 4.7 mmol/L (3.5-5.1)
[2022-03-21] MEDS: LEVOTHYROXINE SOD 0.075 MG TAB PO SCH (05:58)
--- NOTE | 2022-03-21 06:07 | P.PN ---
Date of Service: 03/21/22 I was called to patient's bedside due to concern for patient needing airway protection. Pt appears in distress upon my arrival with racemic epinephrine running. Has previously received Decadron. Exhibiting stridor and subcostal retractions with increased WOB and 100% O2 saturations. Pt with visible angioedema to tongue and lips with Mallampati III. Decision made to protect patient's airway. Delayed sequence intubation performed due to concern for visibility of airway and cords. Ketamine 100 mg IV given and Glidescope Mac 3 blade used to visualize the subglottic area. Significant edema present and unable to clearly visualize the cords. 7-0 ETT inserted with some difficulty due to minimal space in the oropharynx and tube was able to be eventually passed through the cords. Patient was then paralyzed with 50 mg Rocuronium. Propofol started for sedation and additionally suspect will help with BP control as patient is significantly hypertensive. ETCO2 detector with color change and bilateral breath sounds present with epigastric sounds absent. Tube secured with ETT todd with tube at 23 at the lip. Pt tolerated procedure well without complication or difficulty.
[2022-03-21 06:28] LABS: Arterial Blood Carboxyhemoglob 0.7 % (0-1.5); Blood Gas Oxyhemoglobin 91.7 % (94-97); Blood O2 Saturation 94.1 % (92-98.5)
[2022-03-21] MEDS: LORazepam 2 MG/ML VIAL IV PRN ×5 (06:50→20:36)
[2022-03-21] MEDS: HOME MED 1 EA UNK [FLUTICASONE 50MCG NASAL SPRAY] NAS SCH (07:28)
[2022-03-21] MEDS: INSULIN -REGULAR HUMAN 50 UNIT/0.5 ML ML SQ SCH ×3 (07:30→17:05)
[2022-03-21] MEDS ORDERED: ROCURONIUM 50 MG/5 ML VIAL IV ONE (07:31)
[2022-03-21] MEDS ORDERED: ETOMIDATE 20 MG/10 ML VIAL IV ONE (07:31)
[2022-03-21] MEDS: SEVELAMER CARBONATE 800 MG TABLET PO SCH ×3 (08:00→16:47)
[2022-03-21] MEDS ORDERED: HALOPERIDOL LACT 5 MG/ML INJ IV PRN (08:17)
[2022-03-21] MEDS ORDERED: MIDAZOLAM HCL 2 MG/2 ML INJ IV PRN (08:17)
[2022-03-21] MEDS: FENTANYL CITR 100 MCG/2 ML IV PRN (08:34)
[2022-03-21] MEDS: ASPIRIN EC 81 MG TAB PO SCH (08:35)
[2022-03-21] MEDS: FOLIC ACID 1 MG TABLET PO SCH (08:35)
[2022-03-21] MEDS: HEPARIN 5000 UNIT/ML 1 ML VIAL SQ SCH ×2 (08:35→20:55)
--- NOTE | 2022-03-21 10:49 | P.PN ---
Subjective Date of Service: 03/21/22 Chief Complaint: Respiratory failure Patient developed some stridor was intubated last night currently agitated on a ventilator Review of Systems is unable to be obtained Physical Examination - Vital Signs Temperature: 97.5 F Blood Pressure: 137/67 Pulse: 60 Respirations: 18 Pulse Ox (%): 93 - Physical Exam General: Unresponsive Respiratory: Clear to auscultation bilaterally Cardiovascular: No edema, Regular rate/rhythm, Normal S1 S2 Gastrointestinal: Normal bowel sounds, Soft and benign - Studies Medications List Reviewed: Yes Assessment And Plan - Current Problems (Diagnosis) (1) Pulmonary hypertension Current Visit: Yes Status: Acute Plan: Patient is a 56 years of age end-stage renal disease on dialysis admitted with worsening dyspnea patient has severe pulmonary hypertension on echo no evidence of right ventricular dilatation right upper lobe apical opacity patient is an active smoker may have underlying COPD will need outpatient lung function testing bronchodilator at home at risk for sleep apnea need an outpatient sleep study CT of the neck did not show any evidence of obvious obstruction excessive soft tissue agree with discharge on low-dose steroids plus a bronchodilator outpatient treatment for possible pulmonary hypertension after her dilator therapy has been optimized pulmonary function testing and sleep apnea has been treated right now I sent a prescription for Advair (2) Abnormal CT scan, chest Current Visit: Yes Status: Acute Plan: Patient has right upper lobe/apical opacity is an active smoker will need to follow-up Radiologist report A 9 mm pulmonary nodule is present in the right apex new from October 2020 imaging. No other pulmonary nodule seen. At 9 mm, the mass should be amenable to assessment with PET-CT imaging. Alternatively, reassessment in 3 months could be performed to monitor for growth (3) Respiratory failure Current Visit: Yes Status: Acute Plan: Patient developed respiratory distress possible edema of his vocal cords appears to have a compromised upper airway I doubt if is related to cancer he has a lot of redundant soft tissue high risk for obstructive sleep apnea also is a smoker chronic renal failure. Pulmonary hypertension this morning patient was hypercapnic started on dexmedetomidine patient's TSH is very elevated most likely secondary to hypothyroidism Qualifiers: Chronicity: acute Physician Review: Patient Assessed, Agree with Above Assessment and Plan
[2022-03-21] MEDS ORDERED: DEXMEDETOMIDINE HCL 200 MCG in NA CHLORIDE 0.9% 98 ML IV SCH (11:00)
[2022-03-21] MEDS: dexAMETHasone 4 MG/ML VIAL IV SCH ×2 (11:07→17:05)
[2022-03-21] MEDS: LEVOTHYROXINE SODIUM 100 MCG VIAL IV SCH (12:35)
[2022-03-21 14:04] LABS: HBsAG Nonreactive (Nonreactive)
[2022-03-21] MEDS: DEXMEDETOMIDINE HCL 1,000 MCG in NA CHLORIDE 0.9% 490 ML IV SCH (14:20)
--- NOTE | 2022-03-21 14:54 | RAD REPORT ---
EXAM DESCRIPTION: Phil Single View03/21/2022 2:20 pm CLINICAL HISTORY: Device placement orogastric tube placement IMPRESSION: Tip of an orogastric tube lies within the lower lateral gastric fundus
--- NOTE | 2022-03-21 16:13 | P.PN ---
Subjective Date of Service: 03/21/22 Chief Complaint: Respiratory failure Subjective no overnight events cont HD MWF Physical Exam General: intubated, sedated HEENT PERRLA, moist mucose membrane neck: supple, no elevated JVD CHEST; decreased air entry HEART : RRR. Normal S1,2 no murmur or rub Abd: soft, Nt Ext: edema . Lt AVFF , with +ve bruit Skin : No rash 1. End-stage renal disease. Cont HD MWF 2. Volume overload. HD today as above. 3. Hypertension. BP controlled , cont current meds 4. Anemia of chronic kidney disease. Continue SUMIT. 5. Respiratory failure secondary to over volume and pneumonia. Hx of severe pulmo Htn. Continue current antibiotic. HD/UF as above. plan for tracheotomy 6. Renal osteodystrophy. Monitor Ca & Phos. Total time spent 45 minutes including documentation, reviewing labs , Physical Examination - Vital Signs Temperature: 96.8 F Blood Pressure: 167/77 Pulse: 59 Respirations: 15 Pulse Ox (%): 93 - Studies Medications List Reviewed: Yes Assessment And Plan Physician Review: Patient Assessed, Agree with Above Assessment and Plan
--- NOTE | 2022-03-21 17:08 | P.PN ---
Subjective Date of Service: 03/21/22 Chief Complaint: Respiratory failure I received a call at 04:11 AM from TANA Parsons, who stated that Mr. Stephens had developed acute respiratory distress. With the assistance of Emergency Medicine (Dr. Brandt), he underwent successful endotracheal intubation. This morning on rounds, he appears hemodynamically stable on mechanical ventilation. I have spoken to his brother, Mr. Freedman, with the assistance of Finnish-speaking staff, and I updated him on his brother's condition. Per Mr. Freedman, he would serve as the primary decision maker along with his sister. He states that Mr. Stephens does not have a spouse or children. Additionally, both of their parents have unfortunately passed. Review of Systems is unable to be obtained Physical Examination - Vital Signs Temperature: 96.8 F Blood Pressure: 167/77 Pulse: 59 Respirations: 15 Pulse Ox (%): 93 - Studies Medications List Reviewed: Yes Assessment And Plan - Plan - Physical Exam General: Intubated, sedated, in no distress HEENT: Atraumatic, Sclerae nonicteric Neck: Supple Respiratory: Diminished, but clear to auscultation bilaterally Cardiovascular: No edema, Regular rate/rhythm, Normal S1 S2, No gallops, No rubs, No murmurs Gastrointestinal: Hypoactive, Soft and benign, Non-distended, No tenderness, No rebound, No guarding Musculoskeletal: No clubbing Integumentary: No rashes Neurological: Dementia # Acute Hypercapnic Respiratory Failure - possibly secondary to Posterior Left Supraglottic Soft Tissue Fullness with Vocal Cord Asymmetry # Acute Viral Pharnygitis # Severe Pulmonary Hypertension - Evaluation thus far: - Procalcitonin = 1.85 - ABG = pH 7.21, PCO2 64.9, PO2 88.7 - Chest x-ray = "1. ET tube is 1 cm above the betty. 2. Mild bibasilar atelectasis" - Management Plan: - Consulted Pulmonary Medicine and spoke with Dr. Gonzales - recommendations appreciated - Discussed possibility of myxedema coma, but seems unlikely - no hypothermia, bradycardia, macroglossia, thyromegaly, mental status change to support this diagnosis - Nevertheless, empirically started IV levothyroxine + dexamethasone - Consulted Otorhinolaryngology and spoke with Dr. Salas - recommendations appreciated - We reviewed case in detail. She recommends laryngoscopy +/- tracheostomy on 03/23/2022. Anticipate he may require LTAC placement post-operatively. - I spoke with his brother, Mr. Freedman, who agreed to proceed with the procedure - Consulted Respiratory Therapy - Started ampicillin-sulbactam # Hypervolemia in End-Stage Renal Disease on MWF iHD # Right Pulmonary Nodule (9 mm) # Suspect Steroid-Induced Leukocytosis - Evaluation thus far: - Chest x-ray = "prominence of the pulmonary interstitium could reflect pneumonia versus accentuation of vascular markings due to low lung volumes." - CT chest = "no focal pneumonia seen. There are atelectasis changes in each posterior gutter. Mild viral infiltrate or interstitial edema are still poss ible. A 9 mm pulmonary nodule is present in the right apex new from October 2020 imaging. No other pulmonary nodule seen. At 9 mm, the mass should be amenable to assessment with PET-CT imaging. Alternatively, reassessment in 3 months could be performed to monitor for growth." - CT neck = "prominence of the tonsils in soft tissues of the upper airway. This has a pharyngitis or other viral infiltrative process appearance. No retropharyngeal abscess, peritonsillar abscess or other surgically emergent finding. Posterior left supraglottic soft tissue fullness probably artifact of motion rather than mass. Vocal cord asymmetry is present. Follow-up outpatient direct visualization may be needed. Repeat examination when the patient can have better control of movement may be helpful as well." - Transthoracic echocardiogram = "1. severe pulmonary hypertension. right ventricular systolic pressure 55 mmHg. 2. normal left ventricular size and function. 3. no wall motion abnormality. 4. no effusion." - Management plan: - Consulted Pulmonary Medicine and spoke with Dr. Gonzales - recommendations appreciated - Consulted Nephrology - recommendations appreciated - Volume removal via hemodialysis # Type II Diabetes Mellitus - Correction scale insulin # Hypothyroidism - TSH = 54.3, Free T4 0.69, Free T3 1.05 - Continue levothyroxine Ramsey Brizuela M.D.
[2022-03-21 18:59] LABS: Arterial Blood Carboxyhemoglob 0.8 % (0-1.5)
[2022-03-21] MEDS: ATORVASTATIN 40 MG TAB PO SCH (20:53)
[2022-03-22] MEDS: LORazepam 2 MG/ML VIAL IV PRN ×3 (00:25→20:10)
[2022-03-22] MEDS: dexAMETHasone 4 MG/ML VIAL IV SCH ×3 (00:38→20:09)
[2022-03-22] MEDS: AMPICILLIN/SULBACT 1.5 GM in NA CHLORIDE 0.9% 100 ML IVPB SCH (00:38)
[2022-03-22 05:23] LABS: Absolute Lymphocytes (CBC) 0.4 K/uL (0.7-4.9); Hematocrit 27.8 % (39.6-49.0); Lymphocytes % 3.5 % (15.3-44.8); MCV 95.1 fL (80-100); MPV 8.4 fL (7.6-11.3); RBC Red Blood Cell Count 2.93 M/uL (4.33-5.43)
[2022-03-22 05:58] LABS: Albumin 3.4 g/dL (3.4-5.0); Bilirubin Total 0.8 mg/dL (0.2-1.0)
[2022-03-22] MEDS: INSULIN -REGULAR HUMAN 50 UNIT/0.5 ML ML SQ SCH ×4 (06:00→17:19)
[2022-03-22 06:05] LABS: Potassium 5.7 mmol/L (3.5-5.1)
[2022-03-22] MEDS: LEVOTHYROXINE SODIUM 100 MCG VIAL IV SCH ×2 (06:25→11:20)
[2022-03-22] MEDS: SEVELAMER CARBONATE 800 MG TABLET PO SCH ×3 (07:32→17:00)
[2022-03-22] MEDS: HOME MED 1 EA UNK [FLUTICASONE 50MCG NASAL SPRAY] NAS SCH (07:33)
[2022-03-22] MEDS: ASPIRIN EC 81 MG TAB PO SCH (08:10)
[2022-03-22] MEDS: FOLIC ACID 1 MG TABLET PO SCH (08:10)
[2022-03-22] MEDS: HEPARIN 5000 UNIT/ML 1 ML VIAL SQ SCH (08:10)
[2022-03-22] MEDS: FENTANYL CITR 100 MCG/2 ML IV PRN (08:11)
[2022-03-22 08:30] LABS: Blood Morphology Comment NOT SEEN (NOT SEEN); Platelet Estimate ADEQ
[2022-03-22] MEDS: DEXMEDETOMIDINE HCL 1,000 MCG in NA CHLORIDE 0.9% 490 ML IV SCH (09:17)
--- NOTE | 2022-03-22 10:08 | P.PN ---
Subjective Date of Service: 03/22/22 Chief Complaint: Respiratory failure Condition stable continues to remain agitated patient is on a dexmedetomidine drip in addition to other as needed sedation Review of Systems is unable to be obtained Physical Examination - Vital Signs Temperature: 96.8 F Blood Pressure: 149/71 Pulse: 50 Respirations: 14 Pulse Ox (%): 97 - Physical Exam General: Unresponsive Respiratory: Normal air movement, Diminished Cardiovascular: No edema, Regular rate/rhythm - Studies Medications List Reviewed: Yes Assessment And Plan - Current Problems (Diagnosis) (1) Pulmonary hypertension Current Visit: Yes Status: Acute Plan: Patient is a 56 years of age end-stage renal disease on dialysis admitted with worsening dyspnea patient has severe pulmonary hypertension on echo no evidence of right ventricular dilatation right upper lobe apical opacity patient is an active smoker may have underlying COPD will need outpatient lung function testing bronchodilator at home at risk for sleep apnea need an outpatient sleep study CT of the neck did not show any evidence of obvious obstruction excessive soft tissue agree with discharge on low-dose steroids plus a bronchodilator outpatient treatment for possible pulmonary hypertension after her dilator therapy has been optimized pulmonary function testing and sleep apnea has been treated right now I sent a prescription for Advair (2) Abnormal CT scan, chest Current Visit: Yes Status: Acute Plan: Patient has right upper lobe/apical opacity is an active smoker will need to follow-up Radiologist report A 9 mm pulmonary nodule is present in the right apex new from October 2020 imaging. No other pulmonary nodule seen. At 9 mm, the mass should be amenable to assessment with PET-CT imaging. Alternatively, reassessment in 3 months could be performed to monitor for growth (3) Respiratory failure Current Visit: Yes Status: Acute Plan: Respiratory failure patient to undergo an examination under anesthesia tomorrow possible tracheostomy labs reviewed white count is mildly elevated chest x-ray clear blood cultures are negative reduce dose of steroids Qualifiers: Chronicity: acute (4) Hypothyroid Current Visit: Yes Status: Acute Plan: Patient's free T3 and free T4 are very low addition to elevated TSH weekly hypothyroid Qualifiers: Hypothyroidism type: unspecified Qualified Code(s): E03.9 - Hypothyroidism, unspecified Physician Review: Patient Assessed, Agree with Above Assessment and Plan
--- NOTE | 2022-03-22 13:25 | P.CNS ---
Date of Consult: 03/13/22 History: I was asked to evaluate the patient in regards to subacute pharyngitis and abnormal CT of the neck. The history as gathered from the medical record indicates that the patient presented to the emergency room complaining of shortness of breath. He has a complex medical history including chronic tobacco use and end-stage renal disease, currently on hemodialysis. He was evaluated and initially felt to have fluid overload and was treated with dialysis. Further history is difficult to obtain from the patient. When asked about his throat symptoms, he pointed to his chest and said he felt like he was having difficulty breathing which brought him to the hospital. Since his history was difficult to obtain, I inquired about any collateral resources such as family members and he indicated that he lived alone. Exam: The patient was initially found strolling in the hallway near his room. He did not appear acutely in distress. His voice quality seemed relatively normal though his articulation was difficult to understand. His baseline ability to communicate was unknown and there was no one familiar with him or his condition available to corroborate whether any acute changes were notable. His eyes appeared prominent but his conjunctive a were quiet. His head and face appeared normocephalic and atraumatic. The external ears and external nose were unremarkable. His oral cavity demonstrated normal lips, and dentulous gingiva, flat and unremarkable floor of mouth, a somewhat enlarged tongue, Mallampati 4. I was unable to view the posterior pharyngeal wall. Data: The CT neck is reviewed. There is some asymmetry at the level of the glottis but it is difficult to tell whether this is incidental or artifactual due to vocal fold movement. There is no obvious enhancing mass and no pathologically enlarged lymph nodes noted. Assessment: Based on gross assessment of the voice and lack of acute respiratory distress, I recommend outpatient flexible laryngoscopy for further evaluation of the CT findings. The patient can follow-up with me on an outpatient basis for this evaluation.
--- NOTE | 2022-03-22 13:34 | P.PN ---
Date of Service: 03/22/22 Interim history: I was noted by the primary team that on early Wednesday morning, the patient developed acute respiratory distress including reports of stridor and was intubated with the assistance of emergency room staff. In discussion with the primary service, his baseline articulation was unknown but a patient's brother was located with planned discussion with the assistance of a blasting contract man. Dr. Garcia and I discussed the differential diagnosis and potential causes of his change in status overnight. Based on the overall picture, I recommended a direct laryngoscopy in the operating room setting with consideration for tracheostomy. If the patient does have significant vocal fold mass which resulted in obstructive symptoms, a tracheostomy tube will secure his airway and allow for appropriate diagnostic and therapeutic treatments. If the patient does not have a significant vocal fold mass, we will be unable to adequa tely assess vocal fold mobility in the operating room and a tracheostomy will allow us to secure his airway while allowing further assessment of vocal fold mobility at a later date and time. We also discussed the possible diagnosis of hypothyroid myxedema in light of his significantly elevated TSH. The specific cause and duration of his hypothyroidism is unknown. We also discussed the possibility of an angioedema or anaphylactic reaction though no specific new triggering medications were noted around the time of his decompensation. At the time of my exam on Wednesday, he did not seem to be demonstrating findings suggestive of angioedema though given the progression of his symptoms this is a consideration. In coordination with the nursing staff, I understand the plan for laryngoscopy and tracheostomy has been discussed with the assistance of blasting contract man as well as Czech-speaking nurse with the brother. The nurse reported the brother seemed to ask the same questions over and over. The translation system is currently unavailable and I am unable to personally discuss the findings with the surrogate decision-maker. Exam: Patient is currently intubated. His neck is obese and short but his laryngeal cartilage including the cricoid is palpable. He is currently on 45% FiO2 with acceptable pressure settings. He is currently sedated. Data: Laboratory studies today indicate a potassium greater than 5 and creatinine greater than 12 Assessment: Respiratory failure, endotracheal intubation. History of stridor of unknown cause. Dysarthria. Pharyngitis, history difficult to obtain. History of tobacco use. Management is complicated by underlying end-stage renal disease which affects surgical decision making as well as complexity and risk. After conferring with the primary team, I understand there is a goal to proceed with hemodialysis this afternoon. I tentatively posted the case for 7 AM on Wednesday, March 23, 2022 for direct laryngoscopy and tracheostomy. If the patient is unable to receive dialysis today, we will plan for dialysis on Wednesday with surgery on Wednesday. Please feel free to contact me with any updates or changes in his medical condition which would affect surgical plan.
--- NOTE | 2022-03-22 14:51 | P.PN ---
Subjective Date of Service: 03/22/22 Chief Complaint: Respiratory failure No acute events overnight per RN. He remains intubated and sedated. He appears to be breathing comfortably on the ventilator. Review of Systems is unable to be obtained Physical Examination - Vital Signs Temperature: 97.3 F Blood Pressure: 148/71 Pulse: 50 Respirations: 13 Pulse Ox (%): 97 - Studies Microbiology Data (last 24 hrs): 03/17/22 13:08 Blood - Blood Aerobic Blood Culture - Final No growth in 5 days. 03/17/22 13:08 Blood - Blood Anaerobic Blood Culture - Final No growth in 5 days. 03/17/22 11:35 Blood - Blood Aerobic Blood Culture - Final No growth in 5 days. 03/17/22 11:35 Blood - Blood Anaerobic Blood Culture - Final No growth in 5 days. Medications List Reviewed: Yes Assessment And Plan - Plan - Physical Exam General: Intubated, sedated, in no distress HEENT: Atraumatic, Sclerae nonicteric Neck: Supple Respiratory: Intubated on mechanical ventilation. Diminished, but clear to auscultation bilaterally. Cardiovascular: No edema, Regular rate/rhythm, Normal S1 S2, No gallops, No rubs, No murmurs Gastrointestinal: Hypoactive, Soft and benign, Non-distended, No tenderness, No rebound, No guarding Musculoskeletal: No clubbing Integumentary: No rashes Neurological: Dementia # Acute Hypercapnic Respiratory Failure - possibly secondary to Posterior Left Supraglottic Soft Tissue Fullness with Vocal Cord Asymmetry # Acute Viral Pharnygitis # Severe Pulmonary Hypertension - Evaluation thus far: - Procalcitonin = 1.85 - ABG = pH 7.21, PCO2 64.9, PO2 88.7 - Chest x-ray = "1. ET tube is 1 cm above the betty. 2. Mild bibasilar atelectasis" - Management Plan: - Consulted Pulmonary Medicine and spoke with Dr. Gonzales - recommendations appreciated - Discussed possibility of myxedema coma, but seems unlikely - no hypothermia, bradycardia, macroglossia, thyromegaly, mental status change to support this diagnosis - Nevertheless, empirically started IV levothyroxine + dexamethasone - Consulted Otorhinolaryngology and spoke with Dr. Salas - recommendations appreciated - We reviewed case in detail. She recommends laryngoscopy +/- tracheostomy on 03/23/2022. Anticipate he may require LTAC placement post-operatively. - I spoke with his brother, Mr. Freedman, yesterday and he agreed to proceed with the procedure - Hold VTE prophylaxis tonight - Consulted Nephrology and spoke with Dr. Davies- recommendations appreciated - Plan to have hemodialysis today in anticipation for surgery tomorrow - Consulted Respiratory Therapy - Started ampicillin-sulbactam # Hypervolemia in End-Stage Renal Disease on MWF iHD # Hyperkalemia # Right Pulmonary Nodule (9 mm) # Suspect Steroid-Induced Leukocytosis - Evaluation thus far: - Chest x-ray = "prominence of the pulmonary interstitium could reflect pneumonia versus accentuation of vascular markings due to low lung volumes." - CT chest = "no focal pneumonia seen. There are atelectasis changes in each posterior gutter. Mild viral infiltrate or interstitial edema are still possible. A 9 mm pulmonary nodule is present in the right apex new from October 2020 imaging. No other pulmonary nodule seen. At 9 mm, the mass should be amenable to assessment with PET-CT imaging. Alternatively, reassessment in 3 months could be performed to monitor for growth." - CT neck = "prominence of the tonsils in soft tissues of the upper airway. This has a pharyngitis or other viral infiltrative process appearance. No retropharyngeal abscess, peritonsillar abscess or other surgically emergent finding. Posterior left supraglottic soft tissue fullness probably artifact of motion rather than mass. Vocal cord asymmetry is present. Follow-up outpatient direct visualization may be needed. Repeat examination when the patient can have better control of movement may be helpful as well." - Transthoracic echocardiogram = "1. severe pulmonary hypertension. right ventricular systolic pressure 55 mmHg. 2. normal left ventricular size and function. 3. no wall motion abnormality. 4. no effusion." - Management plan: - Consulted Pulmonary Medicine and spoke with Dr. Gonzales - recommendations appreciated - Consulted Nephrology and spoke with Dr. Davies- recommendations appreciated - Plan to have hemodialysis today in anticipation for surgery tomorrow - Volume removal via hemodialysis # Type II Diabetes Mellitus - Correction scale insulin # Hypothyroidism - TSH = 54.3, Free T4 0.69, Free T3 1.05 - Continue levothyroxine Ramsey Brizuela M.D.
--- NOTE | 2022-03-22 16:43 | P.PN ---
Subjective Date of Service: 03/22/22 Chief Complaint: Respiratory failure Subjective no overnight events today K 5.7,will dialyze today next HD tomorrow or Wednesday scheduled for tracheotomy tomorrow Physical Exam General: intubated, alert HEENT PERRLA, moist mucose membrane neck: supple, no elevated JVD CHEST; decreased air entry HEART : RRR. Normal S1,2 no murmur or rub Abd: soft, Nt Ext: edema . Lt AVFF , with +ve bruit Skin : No rash 1. End-stage renal disease. HD MWF pt non compliant with HD , last HD onWednesday , Today K 5.7, will dialyze today , next HD tomorrow or Wednesday 2. Volume overload. HD today as above. 3. Hypertension. BP controlled , cont current meds 4. Anemia of chronic kidney disease. Continue SUMIT. 5. Respiratory failure : possibly due to strider , plan for tracheotomy 6. Renal osteodystrophy. Monitor Ca & Phos. 7.hyperkalemia: HD today Total time spent 45 minutes including documentation, reviewing labs , Physical Examination - Vital Signs Temperature: 97.8 F Blood Pressure: 153/74 Pulse: 48 Respirations: 14 Pulse Ox (%): 97 - Studies Microbiology Data (last 24 hrs): 03/17/22 13:08 Blood - Blood Aerobic Blood Culture - Final No growth in 5 days. 03/17/22 13:08 Blood - Blood Anaerobic Blood Culture - Final No growth in 5 days. 03/17/22 11:35 Blood - Blood Aerobic Blood Culture - Final No growth in 5 days. 03/17/22 11:35 Blood - Blood Anaerobic Blood Culture - Final No growth in 5 days. Medications List Reviewed: Yes Assessment And Plan Physician Review: Patient Assessed, Agree with Above Assessment and Plan
[2022-03-22] MEDS: EPOETIN 4,000 UNIT/ML VIAL IV SCH (18:30)
[2022-03-22] MEDS: ATORVASTATIN 40 MG TAB PO SCH (19:08)
[2022-03-23] MEDS: AMPICILLIN/SULBACT 1.5 GM in NA CHLORIDE 0.9% 100 ML IVPB SCH (00:13)
[2022-03-23] MEDS: DEXMEDETOMIDINE HCL 1,000 MCG in NA CHLORIDE 0.9% 490 ML IV SCH (04:45)
[2022-03-23 05:29] LABS: Absolute Lymphocytes (CBC) 1.2 K/uL (0.7-4.9); Hematocrit 34.9 % (39.6-49.0); MPV 8.6 fL (7.6-11.3); RBC Red Blood Cell Count 3.67 M/uL (4.33-5.43)
[2022-03-23 05:48] LABS: Albumin 3.4 g/dL (3.4-5.0); Bilirubin Total 0.4 mg/dL (0.2-1.0); Potassium 4.8 mmol/L (3.5-5.1)
[2022-03-23] MEDS: INSULIN -REGULAR HUMAN 50 UNIT/0.5 ML ML SQ SCH ×4 (06:00→17:39)
[2022-03-23] MEDS ORDERED: Phenylephrine HCl 10 MG/ML 1 ML VIAL ONE (06:41)
[2022-03-23] MEDS ORDERED: MIDAZOLAM HCL 2 MG/2 ML INJ ONE (06:41)
[2022-03-23] MEDS ORDERED: EPHEDRINE SULF 50 MG/ML VIAL ONE (06:42)
[2022-03-23] MEDS ORDERED: NS 0.9% VIAL 30 ML ONE (06:42)
[2022-03-23] MEDS ORDERED: ROCURONIUM 50 MG/5 ML VIAL IV ONE (06:42)
[2022-03-23] MEDS ORDERED: FENTANYL CITR 100 MCG/2 ML ONE (06:42)
[2022-03-23] MEDS: LEVOTHYROXINE SODIUM 100 MCG VIAL IV SCH (06:51)
[2022-03-23] MEDS: LIDOCAINE 1.5% W/EPI AMP 5 ML ONE ×2 (06:55→07:14)
[2022-03-23] MEDS ORDERED: NA CHLORIDE 0.9% 500 ML ONE (06:55)
[2022-03-23] MEDS ORDERED: GLYCOPYRROLATE 0.2 MG/ML SYR ONE (07:15)
[2022-03-23] MEDS: SEVELAMER CARBONATE 800 MG TABLET PO SCH ×3 (08:00→14:45)
--- NOTE | 2022-03-23 08:29 | P.OP ---
Landscape Drafter: Whitley Bailey Preoperative diagnosis: Respiratory failure, stridor Postoperative diagnosis: Same with significant supraglottic edema Primary procedure: Tracheostomy Secondary procedure: Direct laryngoscopy with telescope Anesthesia: General Estimated blood loss: 10 mL Specimen: None Findings: Short neck, low trach placement due to patient's anatomy, severe bilateral Operative Technique: The patient was transferred directly from the ICU to the operating room and placed in a supine position with a shoulder roll and head support. After appropriate positioning and monitors were placed, the neck was cleaned and clippers were used to remove the hair. The submental area was retracted and supported using 4 inch tape to allow better exposure to the neck. Laryngeal landmarks were palpated and there was approximately 3 fingerbreadths total between the sternal notch and the thyroid notch. 3 mL of lidocaine with epinep hrine were injected into the planned incision site. The neck was prepped with Betadine and draped in a sterile fashion. A surgical marker was used to james the sternal notch and thyroid notch and a 2 cm incision was made approximately 1 fingerbreadth above the sternal notch through the skin and subcutaneous tissues. The skin was retracted superiorly and inferiorly using skin hooks. A 1 x 1 x 2 cm portion of subcutaneous fat was removed using Bovie electrocautery to improve visualization due to patient's body habitus. The strap muscles were identified and retracted laterally with Army-Conyngham retractors. The cricoid cartilage was palpated and dissection was carried out along the cricoid cartilage elevating tissues from the anterior tracheal wall. Areas of bleeding were controlled using 3-0 silk ties and electrocautery. Once the tracheal wall was adequately visualized decision was made to place a high trach due to the patient's short neck. After confirming plan with anesthesia, an incision was made between the first and second tracheal ring and the incision was enlarged using curved Goodman scissors. The endotracheal tube was visualized through the tracheostomy incision and was slowly withdrawn until the tip was barely visible. Tracheal spreaders were used to dilate the opening. A cricoid hook was used to elevate the cricoid cartilage and improve visualization and placement. A size 6 Shiley [employer] cuffed tracheostomy tube was placed under direct visualization into the trachea. The inner cannula was placed, the cuff was inflated and the anesthesia circuit was connected. Return of CO2 and chest rise assisted in confirming placement. There was moderate oozing noted from the wound after removal of the retractors. Direct pressure was applied to the inferior aspect of the trach site and a large portion of Surgicel was unfolded and packed within the wound. Additional direct pressure was held to this area for 5 minutes. After release of pressure the area appeared hemostatic and there was no active bleeding noted. The tracheostomy tube was then secured in a four-point fashion to the skin using 2-0 silk sutures. The skin was cleaned and dried and an umbilical tie was placed around the neck to further secure the tube. Preparations were then made for direct laryngoscopy. The procedure was begun with an exam under anesthesia. The lips were unremarkable. The patient's maxilla and mandible were in dentulous. There was no visible or palpable abnormalities of the hard palate, floor of mouth oral tongue, or buccal mucosa. The base of tongue was palpated and there was no palpable induration or ulcerations. The vallecula was unremarkable by palpation. The epiglottis likewise felt smooth with no significant irregularities. A gauze was placed over the upper gingiva. A Abdiel laryngoscope was used to perform the direct laryngoscopy. The tip of the laryngoscope was placed within the vallecula and elevated revealing a normal- appearing surface of the laryngeal epiglottis. The arytenoids were significantly edematous in a ballooning type appearance. The false and true vocal folds were not visible. As the level of anesthesia lightened and the pat ient began to have some movement, I was able to confirm adequate abduction and abduction of both vocal cords with no specific or discrete mass. Based on the surgical findings, I suspect the degree of supraglottic edema was severe enough to cause obstruction of his glottic airway resulting in his symptoms and need for intubation. Based on the findings, the patient will require tracheostomy until the supraglottic findings resolve. 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 There is no immediate plan for decannulation. He will require outpatient follow-up with Dr. Salas in coordination with medical management of his hypothyroidism with his PCP. Complications: None Implants: Shiley 6.0 [employer] tracheotomy tube, Surgicel packing to inferior aspect Transferred to: ICU Condition: Serious
[2022-03-23] MEDS: HOME MED 1 EA UNK [FLUTICASONE 50MCG NASAL SPRAY] NAS SCH (09:00)
[2022-03-23] MEDS: ASPIRIN EC 81 MG TAB PO SCH (09:00)
[2022-03-23] MEDS: FOLIC ACID 1 MG TABLET PO SCH (09:00)
--- NOTE | 2022-03-23 10:32 | RAD REPORT ---
EXAM DESCRIPTION: RAD - Chest Single View - 03/23/2022 10:15 am CLINICAL HISTORY: s/p tracheotomy COMPARISON: Portable March 21 TECHNIQUE: AP portable chest image was obtained 03/23/2022 10:15 am . FINDINGS: Endotracheal tube has been removed. Tracheostomy tube has been placed. Injured tracheal ti p is at the mid aortic arch level approximately 3 cm above the betty. This should be adequately posi tioned. Low lung volumes accentuate the lung parenchymal pattern. No new lung parenchymal process. Cardiomedi astinal silhouette stable from prior imaging. No pneumothorax. IMPRESSION: Tracheotomy tube has been placed and appears well positioned.
--- NOTE | 2022-03-23 11:02 | RAD REPORT ---
EXAM DESCRIPTION: RAD - Chest Single View - 03/21/2022 5:13 am CLINICAL HISTORY: The patient is 56 years old and is Male; S/P INTUBATION TECHNIQUE: Single view of the chest. COMPARISON: No relevant prior studies available. FINDINGS: Lungs: Mild bibasilar atelectasis. Pleural space: Unremarkable. No pneumothorax. H eart: The cardiac silhouette is enlarged versus artifact of AP technique. Mediastinum: Mediastin al contours are altered due to patient rotation. Bones/joints: No acute fracture visualized. Tube s, lines and devices: ET tube is 1 cm above the betty. Upper abdomen: No free air in the visual ized upper abdomen. IMPRESSION: 1. ET tube is 1 cm above the betty.2. Mild bibasilar atelectasis. Electronically signed by: Molly Caldwell MD 03/21/2022 5:41 AM NOVELTY [employer]ER Due to temporary technical issues with the PACS/Fluency reporting system, reports are being signed by the in house radiologists without review as a courtesy to insure prompt reporting. The interpreting radiologist is fully responsible for the content of the report.
[2022-03-23] MEDS: dexAMETHasone 4 MG/ML VIAL IV SCH (11:11)
[2022-03-23] MEDS: FENTANYL CITR 100 MCG/2 ML IV PRN ×3 (11:39→20:17)
[2022-03-23] MEDS: FOLIC ACID 1 MG in NA CHLORIDE 0.9% 50 ML IV SCH (12:04)
--- NOTE | 2022-03-23 12:12 | P.PN ---
Subjective Date of Service: 03/23/22 Chief Complaint: S/p tracheostomy Patient is agitated s/p tracheostomy supraglottic edema Review of Systems is unable to be obtained Physical Examination - Vital Signs Temperature: 98.0 F Blood Pressure: 127/65 Pulse: 73 Respirations: 18 Pulse Ox (%): 96 - Physical Exam General: Unresponsive Respiratory: Normal air movement Cardiovascular: No edema, Regular rate/rhythm, Normal S1 S2 - Studies Microbiology Data (last 24 hrs): 03/17/22 13:08 Blood - Blood Aerobic Blood Culture - Final No growth in 5 days. 03/17/22 13:08 Blood - Blood Anaerobic Blood Culture - Final No growth in 5 days. 03/17/22 11:35 Blood - Blood Aerobic Blood Culture - Final No growth in 5 days. 03/17/22 11:35 Blood - Blood Anaerobic Blood Culture - Final No growth in 5 days. Medications List Reviewed: Yes Assessment And Plan - Current Problems (Diagnosis) (1) Pulmonary hypertension Current Visit: Yes Status: Acute Plan: Patient is a 56 years of age end-stage renal disease on dialysis admitted with worsening dyspnea patient has severe pulmonary hypertension on echo no evidence of right ventricular dilatation right upper lobe apical opacity patient is an active smoker may have underlying COPD will need outpatient lung function testing bronchodilator at home at risk for sleep apnea need an outpatient sleep study CT of the neck did not show any evidence of obvious obstruction excessive soft tissue agree with discharge on low-dose steroids plus a bronchodilator outpatient treatment for possible pulmonary hypertension after her dilator therapy has been optimized pulmonary function testing and sleep apnea has been treated right now I sent a prescription for Advair (2) Abnormal CT scan, chest Current Visit: Yes Status: Acute Plan: Patient has right upper lobe/apical opacity is an active smoker will need to follow-up Radiologist report A 9 mm pulmonary nodule is present in the right apex new from October 2020 imaging. No other pulmonary nodule seen. At 9 mm, the mass should be amenable to assessment with PET-CT imaging. Alternatively, reassessment in 3 months could be performed to monitor for growth (3) Respiratory failure Current Visit: Yes Status: Acute Plan: Progress post tracheostomy from supraglottic edema presumed secondary to hypothyroidism labs reviewed white count is mildly elevated oxygenation satisfactory hopefully can be weaned off to trach collar tomorrow DC steroid and discontinue antibiotics cultures are negative there is no evidence of any infection in the upper airway Qualifiers: Chronicity: acute (4) Hypothyroid Current Visit: Yes Status: Acute Plan: Patient's free T3 and free T4 are very low addition to elevated TSH weekly hypothyroid Qualifiers: Hypothyroidism type: unspecified Qualified Code(s): E03.9 - Hypothyroidism, unspecified Physician Review: Patient Assessed, Agree with Above Assessment and Plan
[2022-03-23] MEDS: EPOETIN 4,000 UNIT/ML VIAL IV SCH (16:45)
--- NOTE | 2022-03-23 17:56 | P.PN ---
Subjective Date of Service: 03/23/22 Chief Complaint: S/p tracheostomy He was seen this morning on rounds, post-tracheostomy. He appears agitated, but was easily calmed down. He is following commands. When asked if his breathing is better with the tracheostomy, he nods "yes." Review of Systems is unable to be obtained Physical Examination - Vital Signs Temperature: 97.5 F Blood Pressure: 98/60 Pulse: 68 Respirations: 19 Pulse Ox (%): 100 - Studies Microbiology Data (last 24 hrs): 03/17/22 13:08 Blood - Blood Aerobic Blood Culture - Final No growth in 5 days. 03/17/22 13:08 Blood - Blood Anaerobic Blood Culture - Final No growth in 5 days. Medications List Reviewed: Yes Assessment And Plan - Plan - Physical Exam General: Agitated, but in no respiratory distress HEENT: Atraumatic, Sclerae nonicteric Neck: Supple Respiratory: S/P tracheostomy. Diminished, but clear to auscultation bilaterally. Cardiovascular: No edema, Regular rate/rhythm, Normal S1 S2, No gallops, No rubs, No murmurs Gastrointestinal: Hypoactive, Soft and benign, Non-distended, No tenderness, No rebound, No guarding Musculoskeletal: No clubbing Integumentary: No rashes Neurological: Following commands # Acute Hypercapnic Respiratory Failure - possibly secondary to Posterior Left Supraglottic Soft Tissue Fullness with Vocal Cord Asymmetry s/p Tracheostomy # Acute Viral Pharnygitis # Severe Pulmonary Hypertension - Evaluation thus far: - Procalcitonin = 1.85 - ABG = pH 7.21, PCO2 64.9, PO2 88.7 - Chest x-ray = "1. ET tube is 1 cm above the betty. 2. Mild bibasilar atelectasis" - Post-procedure chest x-ray = "tracheotomy tube has been placed and appears well positioned." - Management Plan: - Consulted Pulmonary Medicine and spoke with Dr. Gonzales - recommendations appreciated - Discussed possibility of myxedema coma, but seems unlikely - no hypothermia, bradycardia, macroglossia, thyromegaly, mental status change to support this diagnosis - Nevertheless, empirically started IV levothyroxine + dexamethasone - Consulted Otorhinolaryngology and spoke with Dr. Salas - recommendations appreciated - We reviewed case in detail. S/P laryngoscopy + tracheostomy this morning - Consulted Respiratory Therapy - Started ampicillin-sulbactam - Ordered C1 esterase inhibitor and KENAN levels # Hypervolemia in End-Stage Renal Disease on MWF iHD # Hyperkalemia # Right Pulmonary Nodule (9 mm) # Suspect Steroid-Induced Leukocytosis - Evaluation thus far: - Chest x-ray = "prominence of the pulmonary interstitium could reflect pneumonia versus accentuation of vascular markings due to low lung volumes." - CT chest = "no focal pneumonia seen. There are atelectasis changes in each posterior gutter. Mild viral infiltrate or interstitial edema are still possible. A 9 mm pulmonary nodule is present in the right apex new from October 2020 imaging. No other pulmonary nodule seen. At 9 mm, the mass should be amenable to assessment with PET-CT imaging. Alternatively, reassessment in 3 months could be performed to monitor for growth." - CT neck = "prominence of the tonsils in soft tissues of the upper airway. This has a pharyngitis or other viral infiltrative process appearance. No retropharyngeal abscess, peritonsillar abscess or other surgically emergent finding. Posterior left supraglottic soft tissue fullness probably artifact of motion rather than mass. Vocal cord asymmetry is present. Follow-up outpatient direct visualization may be needed. Repeat examination when the patient can have better control of movement may be helpful as well." - Transthoracic echocardiogram = "1. severe pulmonary hypertension. right ventricular systolic pressure 55 mmHg. 2. normal left ventricular size and function. 3. no wall motion abnormality. 4. no effusion." - Management plan: - Consulted Pulmonary Medicine and spoke with Dr. Gonzales - recommendations appreciated - Consulted Nephrology and spoke with Dr. Davies- recommendations appreciated - Volume removal via hemodialysis # Type II Diabetes Mellitus - Correction scale insulin # Hypothyroidism - TSH = 54.3, Free T4 0.69, Free T3 1.05 - Continue levothyroxine Ramsey Brizuela M.D.
[2022-03-23] MEDS: ATORVASTATIN 40 MG TAB PO SCH (19:25)
[2022-03-23] MEDS: LORazepam 2 MG/ML VIAL IV PRN ×2 (20:50→21:13)
--- NOTE | 2022-03-23 21:42 | PN ---
Date of Progress Note: 03/23/2022 Chief Complaint: End-stage renal disease, on hemodialysis. Subjective: The patient was found to have hyperkalemia, potassium was 5.7 and he received urgent nikki lysis yesterday. He is scheduled to have dialysis after tracheostomy surgery was done today. He rem ains hemodynamically stable. Potassium level has improved. Patient has volume overload and he will have dialysis with ultrafiltration today. Review of Systems: The patient cannot provide review of systems due to his condition. Physical Examination: Lungs: Decreased breath sounds bilaterally. Neck: Trach in place. Heart: S1, S2. Abdomen: Soft. Extremities: Edema present. Impression: 1.End-stage renal disease, fluid overload. Patient will have dialysis today with ultrafiltration. Monitor blood pressure. Adjust ultrafiltration goal. 2.Hypertension. Blood pressure controlled. 3.Anemia due to chronic kidney disease. Continue SUMIT. 4.Respiratory failure status post tracheostomy. 5.Renal osteodystrophy. Monitor calcium and phosphorus level. EB/MODL Voice ID: [id number] Report ID: [id number]
[2022-03-24] MEDS: LORazepam 2 MG/ML VIAL IV PRN ×4 (03:31→23:56)
[2022-03-24 04:54] LABS: Absolute Lymphocytes (CBC) 1.1 K/uL (0.7-4.9); Hematocrit 32.7 % (39.6-49.0); Lymphocytes % 9.8 % (15.3-44.8); MCV 96.7 fL (80-100); MPV 8.2 fL (7.6-11.3); RBC Red Blood Cell Count 3.38 M/uL (4.33-5.43)
[2022-03-24 05:10] LABS: Albumin 3.1 g/dL (3.4-5.0); Bilirubin Total 0.3 mg/dL (0.2-1.0); Magnesium 2.4 mg/dL (1.8-2.4); Phosphorus 7.4 mg/dL (2.5-4.9); Protein, Total 7.1 g/dL (6.4-8.2)
[2022-03-24] MEDS: INSULIN -REGULAR HUMAN 50 UNIT/0.5 ML ML SQ SCH ×5 (05:55→23:56)
[2022-03-24] MEDS: LEVOTHYROXINE SODIUM 100 MCG VIAL IV SCH (06:00)
--- NOTE | 2022-03-24 07:03 | P.PN ---
Subjective Date of Service: 03/24/22 Chief Complaint: S/p tracheostomy Subjective S/p Tracheostomy on 03/23 will cont HD MWF cont current management Physical Exam General: , alert NEck: Tracheosotmy HEENT PERRLA, moist mucose membrane neck: supple, no elevated JVD CHEST; decreased air entry HEART : RRR. Normal S1,2 no murmur or rub Abd: soft, Nt Ext: edema . Lt AVFF , with +ve bruit Skin : No rash # End-stage renal disease. HD MWF REnal diet renal dose medications # Hypertension. BP controlled , cont current meds #Anemia of chronic kidney disease. Continue SUMIT. Monitor H/HJ and transfuse if Hb <7.0 #Respiratory failure : possibly due to strider and upper airway obstruction S/P tracheotomy on 03/23 #Renal osteodystrophy. will increase Renvela Monitor Ca & Phos. Total time spent 45 minutes including documentation, reviewing labs , Physical Examination - Vital Signs Temperature: 97.7 F Blood Pressure: 142/74 Pulse: 88 Respirations: 15 Pulse Ox (%): 99 - Studies Medications List Reviewed: Yes Assessment And Plan Physician Review: Patient Assessed, Agree with Above Assessment and Plan
[2022-03-24] MEDS: SEVELAMER CARBONATE 800 MG TABLET PO SCH ×3 (08:00→16:57)
[2022-03-24] MEDS: HOME MED 1 EA UNK [FLUTICASONE 50MCG NASAL SPRAY] NAS SCH (09:00)
[2022-03-24] MEDS: ASPIRIN EC 81 MG TAB PO SCH (09:00)
[2022-03-24] MEDS: FOLIC ACID 1 MG in NA CHLORIDE 0.9% 50 ML IV SCH (11:34)
[2022-03-24] MEDS ORDERED: NA CHLORIDE 0.9% 1,000 ML IV ONE (11:45)
--- NOTE | 2022-03-24 12:16 | P.PN ---
Subjective Date of Service: 03/24/22 Chief Complaint: S/p tracheostomy Patient is doing much better hemodynamically stable on a ventilator alert responsive cooperative Review of Systems is unable to be obtained Physical Examination - Vital Signs Temperature: 97.7 F Blood Pressure: 142/74 Pulse: 88 Respirations: 15 Pulse Ox (%): 99 - Physical Exam General: Alert, Cooperative Respiratory: Clear to auscultation bilaterally Cardiovascular: No edema, Regular rate/rhythm, Normal S1 S2 - Studies Medications List Reviewed: Yes Assessment And Plan - Current Problems (Diagnosis) (1) Pulmonary hypertension Current Visit: Yes Status: Acute Plan: Patient is a 56 years of age end-stage renal disease on dialysis admitted with worsening dyspnea patient has severe pulmonary hypertension on echo no evidence of right ventricular dilatation right upper lobe apical opacity patient is an active smoker may have underlying COPD will need outpatient lung function testing bronchodilator at home at risk for sleep apnea need an outpatient sleep study CT of the neck did not show any evidence of obvious obstruction excessive soft tissue agree with discharge on low-dose steroids plus a bronchodilator outpatient treatment for possible pulmonary hypertension after her dilator th erapy has been optimized pulmonary function testing and sleep apnea has been treated right now I sent a prescription for Advair (2) Abnormal CT scan, chest Current Visit: Yes Status: Acute Plan: Patient has right upper lobe/apical opacity is an active smoker will need to follow-up Radiologist report A 9 mm pulmonary nodule is present in the right apex new from October 2020 imaging. No other pulmonary nodule seen. At 9 mm, the mass should be amenable to assessment with PET-CT imaging. Alternatively, reassessment in 3 months could be performed to monitor for growth (3) Respiratory failure Current Visit: Yes Status: Acute Plan: Patient is doing much better plan to wean off the ventilator start on a trach collar G-tube start feeding labs reviewed patient has chronic renal failure on dialysis Qualifiers: Chronicity: acute (4) Hypothyroid Current Visit: Yes Status: Acute Plan: Patient's free T3 and free T4 are very low addition to elevated TSH weekly hypothyroid Qualifiers: Hypothyroidism type: unspecified Qualified Code(s): E03.9 - Hypothyroidism, unspecified Physician Review: Patient Assessed, Agree with Above Assessment and Plan
--- NOTE | 2022-03-24 14:55 | RAD REPORT ---
EXAM DESCRIPTION: RAD - Abdomen 1 View (KUB) - 03/24/2022 2:44 pm CLINICAL HISTORY: dobhoff placement COMPARISON: Thorax W/ Con dated 03/20/2022 FINDINGS: Nonobstructive bowel gas pattern. No acute osseous abnormality.Visualized lungs are unrema rkable.No abnormal calcifications. Feeding tube terminates overlying the distal stomach. IMPRESSION: Nonobstructive bowel gas pattern. Weighted feeding tube overlies the distal stomach in s atisfactory position.
[2022-03-24] MEDS: NEPRO 1,000 ML BOT RTH SCH (16:35)
--- NOTE | 2022-03-24 17:34 | P.PN ---
Subjective Date of Service: 03/24/22 Chief Complaint: S/p tracheostomy Post-op day # 1 from laryngoscopy with tracheostomy. No acute events overnight per RN. He appears calm this morning, but remains on dexmedetomidine. No further history available at this time. Will try to wean dexmedetomidine as tolerated. Review of Systems is unable to be obtained Physical Examination - Vital Signs Temperature: 97.7 F Blood Pressure: 142/74 Pulse: 88 Respirations: 15 Pulse Ox (%): 99 - Studies Medications List Reviewed: Yes Assessment And Plan - Plan - Physical Exam General: Calm, on dexmedetomidine HEENT: Atraumatic, Sclerae nonicteric Neck: Supple Respiratory: S/P tracheostomy. Diminished, but clear to auscultation bilaterally. Cardiovascular: No edema, Regular rate/rhythm, Normal S1 S2, No gallops, No rubs, No murmurs Gastrointestinal: Hypoactive, Soft and benign, Non-distended, No tenderness, No rebound, No guarding Musculoskeletal: No clubbing Integumentary: No rashes Neurological: Sedated. # Acute Hypercapnic Respiratory Failure - possibly secondary to Posterior Left Supraglottic Soft Tissue Fullness with Vocal Cord Asymmetry s/p Tracheostomy # Acute Viral Pharnygitis # Severe Pulmonary Hypertension - Evaluation thus far: - Procalcitonin = 1.85 - ABG = pH 7.21, PCO2 64.9, PO2 88.7 - Chest x-ray = "1. ET tube is 1 cm above the betty. 2. Mild bibasilar atelectasis" - Post-procedure chest x-ray = "tracheotomy tube has been placed and appears well positioned." - Management Plan: - Consulted Pulmonary Medicine and spoke with Dr. Gonzales - recommendations appreciated - Discussed possibility of myxedema coma, but seems unlikely - no hypothermia, bradycardia, macroglossia, thyromegaly, mental status change to support this diagnosis - Nevertheless, empirically started IV levothyroxine + dexamethasone - Consulted Otorhinolaryngology and spoke with Dr. Salas - recommendations appreciated - Post-op day # 1 from laryngoscopy + tracheostomy - Consulted Respiratory Therapy - Continue home ampicillin-sulbactam - Ordered C1 esterase inhibitor and KENAN levels - Wean dexmedetomidine as tolerated - Plan to place Dobbhoff and start tube feeds - Nutrition consulted - recommendations appreciated # Hypervolemia in End-Stage Renal Disease on MWF iHD # Hyperkalemia # Right Pulmonary Nodule (9 mm) # Suspect Steroid-Induced Leukocytosis - Evaluation thus far: - Chest x-ray = "prominence of the pulmonary interstitium could reflect pneumonia versus accentuation of vascular markings due to low lung volumes." - CT chest = "no focal pneumonia seen. There are atelectasis changes in each posterior gutter. Mild viral infiltrate or interstitial edema are still possible. A 9 mm pulmonary nodule is present in the right apex new from November 01 imaging. No other pulmonary nodule seen. At 9 mm, the mass should be amenable to assessment with PET-CT imaging. Alternatively, reassessment in 3 months could be performed to monitor for growth." - CT neck = "prominence of the tonsils in soft tissues of the upper airway. This has a pharyngitis or other viral infiltrative process appearance. No retropharyngeal abscess, peritonsillar abscess or other surgically emergent finding. Posterior left supraglottic soft tissue fullness probably artifact of motion rather than mass. Vocal cord asymmetry is present. Follow-up outpatient direct visualization may be needed. Repeat examination when the patient can have better control of movement may be helpful as well." - Transthoracic echocardiogram = "1. severe pulmonary hypertension. right ventricular systolic pressure 55 mmHg. 2. normal left ventricular size and function. 3. no wall motion abnormality. 4. no effusion." - Management plan: - Consulted Pulmonary Medicine and spoke with Dr. Gonzales - recommendations appreciated - Consulted Nephrology - recommendations appreciated - Volume removal via hemodialysis # Type II Diabetes Mellitus - Correction scale insulin # Hypothyroidism - TSH = 54.3, Free T4 0.69, Free T3 1.05 - Continue levothyroxine Ramsey Brizuela M.D.
[2022-03-24] MEDS: ATORVASTATIN 40 MG TAB PO SCH (20:54)
[2022-03-25] MEDS: LORazepam 2 MG/ML VIAL IV PRN (03:11)
[2022-03-25 05:10] LABS: Absolute Lymphocytes (CBC) 0.7 K/uL (0.7-4.9); Hematocrit 33.6 % (39.6-49.0); Lymphocytes % 3.9 % (15.3-44.8); MCV 97.3 fL (80-100); MPV 8.6 fL (7.6-11.3); RBC Red Blood Cell Count 3.46 M/uL (4.33-5.43)
[2022-03-25] MEDS: INSULIN -REGULAR HUMAN 50 UNIT/0.5 ML ML SQ SCH ×3 (06:00→17:40)
[2022-03-25 06:23] LABS: Albumin 3.3 g/dL (3.4-5.0); Bilirubin Total 0.5 mg/dL (0.2-1.0); Phosphorus 8.4 mg/dL (2.5-4.9); Protein, Total 7.4 g/dL (6.4-8.2)
[2022-03-25 06:26] LABS: Magnesium 2.8 mg/dL (1.8-2.4)
[2022-03-25] MEDS: LEVOTHYROXINE SODIUM 100 MCG VIAL IV SCH (06:33)
[2022-03-25] MEDS: ASPIRIN 81 MG CHEWABLE TABLET PO SCH (07:56)
[2022-03-25] MEDS: SEVELAMER CARBONATE 800 MG TABLET PO SCH ×3 (07:56→16:35)
[2022-03-25] MEDS: HOME MED 1 EA UNK [FLUTICASONE 50MCG NASAL SPRAY] NAS SCH (07:57)
[2022-03-25] MEDS: FOLIC ACID 1 MG in NA CHLORIDE 0.9% 50 ML IV SCH (08:51)
--- NOTE | 2022-03-25 11:14 | P.PN ---
Subjective Date of Service: 03/25/22 Chief Complaint: S/p tracheostomy Post-op day # 2 from laryngoscopy with tracheostomy. No acute events overnight. He has been weaned off of dexmedetomidine. He appears well this morning and is able to communicate by mouthing words. He states that his pain is well controlled. He reports that he feels that his main concern is a dry mouth this morning. Review of Systems 10-point ROS is otherwise unremarkable ENT: Other (s/p trach, dry mouth) Physical Examination - Vital Signs Temperature: 96.6 F Blood Pressure: 147/71 Pulse: 95 Respirations: 18 Pulse Ox (%): 97 - Studies Medications List Reviewed: Yes Assessment And Plan - Plan - Physical Exam General: Alert and oriented. No distress HEENT: Atraumatic, Sclerae nonicteric Neck: Supple Respiratory: S/P tracheostomy. Diminished, but clear to auscultation bilaterally. Cardiovascular: No edema, Regular rate/rhythm, Normal S1 S2, No gallops, No rubs, No murmurs Gastrointestinal: Hypoactive, Soft and benign, Non-distended, No tenderness, No rebound, No guarding Musculoskeletal: No clubbing Integumentary: No rashes Neurological: Alert and oriented. No distress. Following commands. Moving all four extremities equally. # Acute Hypercapnic Respiratory Failure - possibly secondary to Posterior Left Supraglottic Soft Tissue Fullness with Vocal Cord Asymmetry s/p Tracheostomy # Acute Viral Pharyngitis # Severe Pulmonary Hypertension - Evaluation thus far: - Procalcitonin = 1.85 - ABG = pH 7.21, PCO2 64.9, PO2 88.7 - Chest x-ray = "1. ET tube is 1 cm above the betty. 2. Mild bibasilar atelectasis" - Post-procedure chest x-ray = "tracheotomy tube has been placed and appears well positioned." - Management Plan: - Consulted Pulmonary Medicine and spoke with Dr. Gonzales - recommendations appreciated - Discussed possibility of myxedema coma, but seems unlikely - no hypothermia, bradycardia, macroglossia, thyromegaly, mental status change to support this diagnosis - Nevertheless, empirically started IV levothyroxine + dexamethasone - Consulted Otorhinolaryngology and spoke with Dr. Salas - recommendations appreciated - Post-op day # 2 from laryngoscopy + tracheostomy - Consulted Respiratory Therapy - Continue ampicillin-sulbactam - Ordered C1 esterase inhibitor and KENAN levels - Wean dexmedetomidine as tolerated - Dobbhoff placed and started tube feeds - Nutrition consulted - recommendations appreciated - Consult PT/OT/AUTOMATION TENDER - May require placement # Hypervolemia in End-Stage Renal Disease on MWF iHD # Hyperkalemia # Right Pulmonary Nodule (9 mm) # Suspect Steroid-Induced Leukocytosis - Evaluation thus far: - Chest x-ray = "prominence of the pulmonary interstitium could reflect pneumonia versus accentuation of vascular markings due to low lung volumes." - CT chest = "no focal pneumonia seen. There are atelectasis changes in each posterior gutter. Mild viral infiltrate or interstitial edema are still possible. A 9 mm pulmonary nodule is present in the right apex new from October 2020 imaging. No other pulmonary nodule seen. At 9 mm, the mass should be amenable to assessment with PET-CT imaging. Alternatively, reassessment in 3 months could be performed to monitor for growth." - CT neck = "prominence of the tonsils in soft tissues of the upper airway. This has a pharyngitis or other viral infiltrative process appearance. No retropharyngeal abscess, peritonsillar abscess or other surgically emergent finding. Posterior left supraglottic soft tissue fullness probably artifact of motion rather than mass. Vocal cord asymmetry is present. Follow-up outpatient direct visualization may be needed. Repeat examination when the patient can have better control of movement may be helpful as well." - Transthoracic echocardiogram = "1. severe pulmonary hypertension. right ventricular systolic pressure 55 mmHg. 2. normal left ventricular size and function. 3. no wall motion abnormality. 4. no effusion." - Management plan: - Consulted Pulmonary Medicine and spoke with Dr. Gonzales - recommendations appreciated - Consulted Nephrology - recommendations appreciated - Volume removal via hemodialysis # Type II Diabetes Mellitus - Correction scale insulin # Hypothyroidism - TSH = 54.3, Free T4 0.69, Free T3 1.05 - Continue levothyroxine Ramsey Brizuela M.D.
--- NOTE | 2022-03-25 11:45 | P.PN ---
Subjective Date of Service: 03/25/22 Chief Complaint: S/p tracheostomy Doing well patient is now on trach collar no complaints has thick secretions Review of Systems is unable to be obtained Physical Examination - Vital Signs Temperature: 96.6 F Blood Pressure: 147/71 Pulse: 95 Respirations: 18 Pulse Ox (%): 97 - Physical Exam General: Alert, Cooperative Respiratory: Clear to auscultation bilaterally, Diminished Cardiovascular: No edema, Regular rate/rhythm - Studies Medications List Reviewed: Yes Assessment And Plan - Current Problems (Diagnosis) (1) Pulmonary hypertension Current Visit: Yes Status: Acute Plan: Patient is a 56 years of age end-stage renal disease on dialysis admitted with worsening dyspnea patient has severe pulmonary hypertension on echo no evidence of right ventricular dilatation right upper lobe apical opacity patient is an active smoker may have underlying COPD will need outpatient lung function testing bronchodilator at home at risk for sleep apnea need an outpatient sleep study CT of the neck did not show any evidence of obvious obstruction excessive soft tissue agree with discharge on low-dose steroids plus a bronchodilator outpatient treatment for possible pulmonary hypertension after her dilator therapy has been optimized pulmonary function testing and sleep apnea has been treated right now I sent a prescription for Advair (2) Abnormal CT scan, chest Current Visit: Yes Status: Acute Plan: Patient has right upper lobe/apical opacity is an active smoker will need to follow-up Radiologist report A 9 mm pulmonary nodule is present in the right apex new from October 2020 imaging. No other pulmonary nodule seen. At 9 mm, the mass should be amenable to assessment with PET-CT imaging. Alternatively, reassessment in 3 months could be performed to monitor for growth (3) Respiratory failure Current Visit: Yes Status: Acute Plan: Patient is s/p trach and doing well on trach collar the ventilator has thick secretions we will send off sputum for culture stable for LTAC Qualifiers: Chronicity: acute (4) Hypothyroid Current Visit: Yes Status: Acute Plan: Patient's free T3 and free T4 are very low addition to elevated TSH weekly hypothyroid Qualifiers: Hypothyroidism type: unspecified Qualified Code(s): E03.9 - Hypothyroidism, unspecified Physician Review: Patient Assessed, Agree with Above Assessment and Plan
--- NOTE | 2022-03-25 14:42 | P.PN ---
Subjective Date of Service: 03/25/22 Chief Complaint: S/p tracheostomy Subjective: No new changes Physical Examination - Vital Signs Temperature: 97.6 F Blood Pressure: 145/74 Pulse: 86 Respirations: 20 Pulse Ox (%): 100 - Physical Exam General: Other (Appears as his stated age) HEENT: Atraumatic, Normocephalic Neck: Supple, Other (+trach) Respiratory: Other (Symmetric chest expansion) Cardiovascular: No rubs, No murmurs Gastrointestinal: Soft and benign, No guarding Musculoskeletal: No clubbing Integumentary: No warmth Neurological: Normal tone Urinary: Other (No bladder distention) External genitalia: Deferred Rectal: Deferred - Studies Medications List Reviewed: Yes Assessment And Plan - Plan 1. End-stage renal disease on HD MWF. Received HD today. 2. Volume overload. HD today. 3. Hypertension. We will continue to utilize blood pressure for more ultrafiltration. 4. Anemia of chronic kidney disease. Continue SUMIT. 5. Acute respiratory failure secondary to over volume + acute pharyngitis/pneumonia + upper airway obstruction. Hx of severe pulmo Htn. S/p trach on 03/23. HD/UF as above. 6. Renal osteodystrophy. Monitor Ca & Phos. Physician Review: Patient Assessed, Agree with Above Assessment and Plan
[2022-03-25] MEDS: EPOETIN 4,000 UNIT/ML VIAL IV SCH (17:00)
[2022-03-25] MEDS: FENTANYL CITR 100 MCG/2 ML IV PRN (20:31)
[2022-03-25] MEDS: ATORVASTATIN 40 MG TAB PO SCH (20:31)
[2022-03-26] MEDS: LORazepam 2 MG/ML VIAL IV PRN (00:08)
[2022-03-26 05:23] LABS: Absolute Lymphocytes (CBC) 0.9 K/uL (0.7-4.9); Hematocrit 33.6 % (39.6-49.0); Lymphocytes % 5.1 % (15.3-44.8); MCV 97.1 fL (80-100); MPV 8.3 fL (7.6-11.3); RBC Red Blood Cell Count 3.47 M/uL (4.33-5.43)
[2022-03-26 05:43] LABS: Potassium 3.7 mmol/L (3.5-5.1)
[2022-03-26] MEDS: INSULIN -REGULAR HUMAN 50 UNIT/0.5 ML ML SQ SCH ×4 (06:00→16:58)
[2022-03-26] MEDS: LEVOTHYROXINE SODIUM 100 MCG VIAL IV SCH (06:05)
[2022-03-26] MEDS: NEPRO 1,000 ML BOT RTH SCH (06:05)
[2022-03-26] MEDS ORDERED: KCL 20 MEQ/100 mL IVPB 20 MEQ/100 ML BAG IV SCH (07:30)
[2022-03-26] MEDS: ASPIRIN 81 MG CHEWABLE TABLET PO SCH (08:08)
[2022-03-26] MEDS: SEVELAMER CARBONATE 800 MG TABLET PO SCH ×3 (08:08→16:34)
[2022-03-26] MEDS: HOME MED 1 EA UNK [FLUTICASONE 50MCG NASAL SPRAY] NAS SCH (08:08)
--- NOTE | 2022-03-26 12:39 | P.PN ---
Subjective Date of Service: 03/26/22 Chief Complaint: S/p tracheostomy Post-op day # 3 from laryngoscopy with tracheostomy. No acute events overnight. He has been doing well and is gradually improving. He states that his pain is well controlled. He is eager to be discharged to [facility]. He did not pass swallow study, continuing tube feeds. Review of Systems 10-point ROS is otherwise unremarkable ENT: Other (s/p tracheostomy) Physical Examination - Vital Signs Temperature: 97.3 F Blood Pressure: 148/77 Pulse: 86 Respirations: 25 Pulse Ox (%): 98 - Studies Medications List Reviewed: Yes Assessment And Plan - Plan - Physical Exam General: Alert and oriented. No distress HEENT: Atraumatic, Sclerae nonicteric Neck: Supple Respiratory: S/P tracheostomy. Diminished, but clear to auscultation bilaterally. Cardiovascular: No edema, Regular rate/rhythm, Normal S1 S2, No gallops, No rubs, No murmurs Gastrointestinal: Hypoactive, Soft and benign, Non-distended, No tenderness, No rebound, No guarding Musculoskeletal: No clubbing Integumentary: No rashes Neurological: Alert and oriented. No distress. Following commands. Moving all four extremities equally. # Acute Hypercapnic Respiratory Failure - possibly secondary to Posterior Left Supraglottic Soft Tissue Fullness with Vocal Cord Asymmetry s/p Tracheostomy # Acute Viral Pharyngitis # Severe Pulmonary Hypertension - Evaluation thus far: - Procalcitonin = 1.85 - ABG = pH 7.21, PCO2 64.9, PO2 88.7 - Chest x-ray = "1. ET tube is 1 cm above the betty. 2. Mild bibasilar atelectasis" - Post-procedure chest x-ray = "tracheotomy tube has been placed and appears well positioned." - Management Plan: - Consulted Pulmonary Medicine and spoke with Dr. Gonzales - recommendations appreciated - Discussed possibility of myxedema coma, but seems unlikely - no hypothermia, bradycardia, macroglossia, thyromegaly, mental status change to support this diagnosis - Nevertheless, empirically started IV levothyroxine + dexamethasone - Consulted Otorhinolaryngology and spoke with Dr. Salas - recommendations appreciated - Post-op day # 3 from laryngoscopy + tracheostomy - Consulted Respiratory Therapy - Continue ampicillin-sulbactam - Ordered C1 esterase inhibitor and KENAN levels - Dobbhoff placed and started tube feeds - Nutrition consulted - recommendations appreciated - Consult PT/OT/DIRECTOR SELECTION AND ADMINISTRATION - Appreciated CM assistance with placement # Hypervolemia in End-Stage Renal Disease on MWF iHD # Hyperkalemia # Right Pulmonary Nodule (9 mm) # Suspect Steroid-Induced Leukocytosis - Evaluation thus far: - Chest x-ray = "prominence of the pulmonary interstitium could reflect pneumonia versus accentuation of vascular markings due to low lung volumes." - CT chest = "no focal pneumonia seen. There are atelectasis changes in each posterior gutter. Mild viral infiltrate or interstitial edema are still possible. A 9 mm pulmonary nodule is present in the right apex new from October 2020 imaging. No other pulmonary nodule seen. At 9 mm, the mass should be amenable to assessment with PET-CT imaging. Alternatively, reassessment in 3 months could be performed to monitor for growth." - CT neck = "prominence of the tonsils in soft tissues of the upper airway. This has a pharyngitis or other viral infiltrative process appearance. No retropharyngeal abscess, peritonsillar abscess or other surgically emergent finding. Posterior left supraglottic soft tissue fullness probably artifact of motion rather than mass. Vocal cord asymmetry is present. Follow-up outpatient direct visualization may be needed. Repeat examination when the patient can have better control of movement may be helpful as well." - Transthoracic echocardiogram = "1. severe pulmonary hypertension. right ventricular systolic pressure 55 mmHg. 2. normal left ventricular size and function. 3. no wall motion abnormality. 4. no effusion." - Management plan: - Consulted Pulmonary Medicine and spoke with Dr. Gonzales - recommendations appreciated - Consulted Nephrology - recommendations appreciated - Volume removal via hemodialysis # Type II Diabetes Mellitus - Correction scale insulin # Hypothyroidism - TSH = 54.3, Free T4 0.69, Free T3 1.05 - Continue levothyroxine Awaiting placement. Gradually improving. Unlikely to happen today due to holiday. Ramsey Brizuela M.D.
--- NOTE | 2022-03-26 13:12 | P.PN ---
Subjective Date of Service: 03/26/22 Chief Complaint: S/p tracheostomy Physical Examination - Vital Signs Temperature: 97.3 F Blood Pressure: 148/77 Pulse: 86 Respirations: 25 Pulse Ox (%): 98 - Physical Exam General: Other (Chronically ill appearing) HEENT: Atraumatic, Normocephalic Neck: Supple, Other (+trach) Respiratory: Other (Symmetric chest expansion) Cardiovascular: No rubs, No murmurs Gastrointestinal: Soft and benign, No rebound Musculoskeletal: No clubbing Integumentary: No warmth Neurological: Normal tone Urinary: Other (No bladder distention) External genitalia: Deferred Rectal: Deferred - Studies Medications List Reviewed: Yes Assessment And Plan - Plan 1. End-stage renal disease on HD MWF. Received HD yesterday. Next HD tomorrow. 2. Volume overload. HD as above. 3. Hypertension. We will continue to utilize blood pressure for more ultrafiltration. 4. Anemia of chronic kidney disease. Continue SUMIT. 5. Acute respiratory failure secondary to over volume + acute pharyngitis/pneumonia + upper airway obstruction. Hx of severe pulmo Htn. S/p trach on 03/23. HD/UF as above. 6. Renal osteodystrophy. Monitor Ca & Phos. Physician Review: Patient Assessed, Agree with Above Assessment and Plan
[2022-03-26] MEDS: FENTANYL CITR 100 MCG/2 ML IV PRN (17:38)
[2022-03-26] MEDS: ATORVASTATIN 40 MG TAB PO SCH (20:31)
[2022-03-26] MEDS: DIPHENHYDRAMINE 25 MG TAB/CAP PO PRN (20:45)
[2022-03-27 05:31] LABS: Absolute Lymphocytes (CBC) 1.4 K/uL (0.7-4.9); MCV 96.9 fL (80-100); MPV 8.9 fL (7.6-11.3); RBC Red Blood Cell Count 3.51 M/uL (4.33-5.43)
[2022-03-27] MEDS: LEVOTHYROXINE SODIUM 100 MCG VIAL IV SCH (05:35)
[2022-03-27 05:38] LABS: Potassium 4.3 mmol/L (3.5-5.1)
[2022-03-27] MEDS: INSULIN -REGULAR HUMAN 50 UNIT/0.5 ML ML SQ SCH ×4 (05:51→17:54)
[2022-03-27 06:58] LABS: Blood Morphology Comment NOT SEEN (NOT SEEN); Platelet Estimate ADEQ
[2022-03-27] MEDS: SEVELAMER CARBONATE 800 MG TABLET PO SCH ×3 (08:19→17:40)
[2022-03-27] MEDS: ASPIRIN 81 MG CHEWABLE TABLET PO SCH (08:19)
[2022-03-27] MEDS: HOME MED 1 EA UNK [FLUTICASONE 50MCG NASAL SPRAY] NAS SCH (09:00)
[2022-03-27] MEDS: CEFTRIAXONE 1,000 MG in NA CHLORIDE 0.9% 50 ML IVPB SCH ×2 (10:55→11:00)
[2022-03-27] MEDS: FENTANYL CITR 100 MCG/2 ML IV PRN ×2 (11:16→20:48)
--- NOTE | 2022-03-27 11:32 | RAD REPORT ---
EXAM DESCRIPTION: RAD - Abdomen 1 View (KUB) - 03/27/2022 11:26 am CLINICAL HISTORY: Device placement Dobhoff tube placement FINDINGS: The Dobhoff tube is coiled within the gastric fundus. The tip of a Dobhoff tube lies within the gastric fundus 2 centimeters from the GE junction
--- NOTE | 2022-03-27 11:39 | P.PN ---
Subjective Date of Service: 03/27/22 Chief Complaint: S/p tracheostomy Patient is doing much better secretions have decreased liters cultures show Enterobacter cloacae Review of Systems is unable to be obtained Physical Examination - Vital Signs Temperature: 98.4 F Blood Pressure: 156/73 Pulse: 83 Respirations: 22 Pulse Ox (%): 98 - Physical Exam General: Alert, Cooperative Respiratory: Clear to auscultation bilaterally, Diminished - Studies Medications List Reviewed: Yes Assessment And Plan - Current Problems (Diagnosis) (1) Pulmonary hypertension Current Visit: Yes Status: Acute Plan: Patient is a 56 years of age end-stage renal disease on dialysis admitted with worsening dyspnea patient has severe pulmonary hypertension on echo no evidence of right ventricular dilatation right upper lobe apical opacity patient is an active smoker may have underlying COPD will need outpatient lung function testing bronchodilator at home at risk for sleep apnea need an outpatient sleep study CT of the neck did not show any evidence of obvious obstruction excessive soft tissue agree with discharge on low-dose steroids plus a bronchodilator outpatient treatment for possible pulmonary hypertension after her dilator therapy has been optimized pulmonary function testing and sleep apnea has been treated right now I sent a prescription for Advair (2) Abnormal CT scan, chest Current Visit: Yes Status: Acute Plan: Patient has right upper lobe/apical opacity is an active smoker will need to follow-up Radiologist report A 9 mm pulmonary nodule is present in the right apex new from October 2020 imaging. No other pulmonary nodule seen. At 9 mm, the mass should be amenable to assessment with PET-CT imaging. Alternatively, reassessment in 3 months could be performed to monitor for growth (3) Respiratory failure Current Visit: Yes Status: Acute Plan: Patient is s/p trach and doing well on trach collar the ventilator has thick secretions sputum culture shows Enterobacter cloacae and patient is sensitive to ceftriaxone trial of a Passy-Badin valve he is swallowing tube feeds patient's white count is elevated white count may have been elevated from steroids which have been discontinued blood cultures so far negative Qualifiers: Chronicity: acute (4) Hypothyroid Current Visit: Yes Status: Acute Plan: Patient's free T3 and free T4 are very low addition to elevated TSH weekly hypothyroid/continue with IV Synthroid for now Qualifiers: Hypothyroidism type: unspecified Qualified Code(s): E03.9 - Hypothyroidism, unspecified Physician Review: Patient Assessed, Agree with Above Assessment and Plan
--- NOTE | 2022-03-27 11:49 | P.PN ---
Subjective Date of Service: 03/27/22 Chief Complaint: S/p tracheostomy Post-op day # 4 from laryngoscopy with tracheostomy. No acute events overnight. He reports that he feels well and he feels that he is ready to be discharged to [facility]. Sputum culture has returned positive for Enterobacter Cloacae. Review of Systems 10-point ROS is otherwise unremarkable ENT: Other (s/p trach) Physical Examination - Vital Signs Temperature: 98.4 F Blood Pressure: 156/73 Pulse: 83 Respirations: 22 Pulse Ox (%): 98 - Studies Medications List Reviewed: Yes Assessment And Plan - Plan - Physical Exam General: Alert and oriented. No distress HEENT: Atraumatic, Sclerae nonicteric Neck: Supple Respiratory: S/P tracheostomy. Diminished, but clear to auscultation bilaterally. Cardiovascular: No edema, Regular rate/rhythm, Normal S1 S2, No gallops, No rubs, No murmurs Gastrointestinal: Hypoactive, Soft and benign, Non-distended, No tenderness, No rebound, No guarding Musculoskeletal: No clubbing Integumentary: No rashes Neurological: Alert and oriented. No distress. Following commands. Moving all four extremities equally. # Acute Hypercapnic Respiratory Failure - possibly secondary to Posterior Left Supraglottic Soft Tissue Fullness with Vocal Cord Asymmetry s/p Tracheostomy # Acute Pharyngitis possibly secondary to Enterobacter Cloacae # Severe Pulmonary Hypertension - Evaluation thus far: - Procalcitonin = 1.85 - ABG = pH 7.21, PCO2 64.9, PO2 88.7 - Chest x-ray = "1. ET tube is 1 cm above the betty. 2. Mild bibasilar atelectasis" - Post-procedure chest x-ray = "tracheotomy tube has been placed and appears well positioned." - Management Plan: - Consulted Pulmonary Medicine and spoke with Dr. Gonzales - recommendations appreciated - Discussed possibility of myxedema coma, but seems unlikely - no hypothermia, bradycardia, macroglossia, thyromegaly, mental status change to support this diagnosis - Nevertheless, empirically started IV levothyroxine + dexamethasone - Consulted Otorhinolaryngology and spoke with Dr. Salas - recommendations appreciated - Post-op day # 4 from laryngoscopy + tracheostomy - Consulted Respiratory Therapy - Switch ampicillin-sulbactam to ceftriaxone based on sputum culture sensitivities - Ordered chest x-ray - Ordered C1 esterase inhibitor and KENAN levels - Dobbhoff placed and started tube feeds - Nutrition consulted - recommendations appreciated - Consult PT/OT/INDUSTRIAL CONTROLS TECHNICIAN - Appreciated CM assistance with placement # Hypervolemia in End-Stage Renal Disease on MWF iHD # Hyperkalemia # Right Pulmonary Nodule (9 mm) # Suspect Steroid-Induced Leukocytosis - Evaluation thus far: - Chest x-ray = "prominence of the pulmonary interstitium could reflect pneumonia versus accentuation of vascular markings due to low lung volumes." - CT chest = "no focal pneumonia seen. There are atelectasis changes in each posterior gutter. Mild viral infiltrate or interstitial edema are still possible. A 9 mm pulmonary nodule is present in the right apex new from October 2020 imaging. No other pulmonary nodule seen. At 9 mm, the mass should be amenable to assessment with PET-CT imaging. Alternatively, reassessment in 3 months could be performed to monitor for growth." - CT neck = "prominence of the tonsils in soft tissues of the upper airway. This has a pharyngitis or other viral infiltrative process appearance. No retropharyngeal abscess, peritonsillar abscess or other surgically emergent finding. Posterior left supraglottic soft tissue fullness probably artifact of motion rather than mass. Vocal cord asymmetry is present. Follow-up outpatient direct visualization may be needed. Repeat examination when the patient can have better control of movement may be helpful as well." - Transthoracic echocardiogram = "1. severe pulmonary hypertension. right ventricular systolic pressure 55 mmHg. 2. normal left ventricular size and function. 3. no wall motion abnormality. 4. no effusion." - Management plan: - Consulted Pulmonary Medicine and spoke with Dr. Gonzales - recommendations appreciated - Consulted Nephrology - recommendations appreciated - Volume removal via hemodialysis # Type II Diabetes Mellitus - Correction scale insulin # Hypothyroidism - TSH = 54.3, Free T4 0.69, Free T3 1.05 - Continue levothyroxine Ramsey Brizuela M.D.
--- NOTE | 2022-03-27 12:45 | RAD REPORT ---
EXAM DESCRIPTION: RAD - Chest Single View - 03/27/2022 12:17 pm CLINICAL HISTORY: Device placement Dobhoff tube placement IMPRESSION: The tip of a Dobhoff tube lies within the the proximal gastric body. A right basilar opacity likely atelectasis. Upper lobes appear clear. Heart is mildly to moderately enlarged. Tracheostomy tube in place
--- NOTE | 2022-03-27 14:41 | P.PN ---
Subjective Date of Service: 03/27/22 Chief Complaint: S/p tracheostomy Subjective: No new changes Physical Examination - Vital Signs Temperature: 98.4 F Blood Pressure: 156/73 Pulse: 83 Respirations: 22 Pulse Ox (%): 98 - Physical Exam General: Other (Appears as his stated age) HEENT: Atraumatic, Normocephalic Neck: Supple, Other (+trach) Respiratory: Other (Symmetric chest expansion) Cardiovascular: No rubs, No murmurs Gastrointestinal: Soft and benign Musculoskeletal: No clubbing Integumentary: No warmth Neurological: Normal tone Urinary: Other (No bladder distention) External genitalia: Deferred Rectal: Deferred - Studies Medications List Reviewed: Yes Assessment And Plan - Plan 1. End-stage renal disease on HD MWF. Received HD today. 2. Volume overload. HD as above. 3. Hypertension. We will continue to utilize blood pressure for more ultrafiltration. 4. Anemia of chronic kidney disease. Continue SUMIT. 5. Acute respiratory failure secondary to over volume + acute pharyngitis/pneumonia + upper airway obstruction. Hx of severe pulmo Htn. S/p trach on 03/23. HD/UF as above. 6. Renal osteodystrophy. Monitor Ca & Phos. 7. Dispo. Dc plan to [facility] ongoing. Physician Review: Patient Assessed, Agree with Above Assessment and Plan
[2022-03-27] MEDS: EPOETIN 4,000 UNIT/ML VIAL IV SCH (17:30)
[2022-03-27] MEDS: ATORVASTATIN 40 MG TAB PO SCH (21:07)
[2022-03-28] MEDS: FENTANYL CITR 100 MCG/2 ML IV PRN ×4 (03:27→20:23)
[2022-03-28] MEDS: LEVOTHYROXINE SODIUM 100 MCG VIAL IV SCH (05:19)
[2022-03-28] MEDS: INSULIN -REGULAR HUMAN 50 UNIT/0.5 ML ML SQ SCH ×4 (06:00→18:00)
[2022-03-28] MEDS: CEFTRIAXONE 1,000 MG in NA CHLORIDE 0.9% 50 ML IVPB SCH (07:37)
[2022-03-28] MEDS: HOME MED 1 EA UNK [FLUTICASONE 50MCG NASAL SPRAY] NAS SCH (07:37)
[2022-03-28] MEDS: SEVELAMER CARBONATE 800 MG TABLET PO SCH ×3 (07:38→18:40)
[2022-03-28] MEDS: ASPIRIN 81 MG CHEWABLE TABLET PO SCH (07:38)
[2022-03-28 08:43] LABS: Absolute Lymphocytes (CBC) 0.8 K/uL (0.7-4.9); MCV 96.8 fL (80-100); MPV 7.6 fL (7.6-11.3); RBC Red Blood Cell Count 3.31 M/uL (4.33-5.43)
[2022-03-28 09:08] LABS: Potassium 4.1 mmol/L (3.5-5.1)
--- NOTE | 2022-03-28 10:45 | P.PN ---
Subjective Date of Service: 03/28/22 Chief Complaint: S/p tracheostomy Post-op day # 5 from laryngoscopy with tracheostomy. No acute events overnight. CM is working on placement to [facility], but unlikely to happen over the weekend. He reports no concerns this morning. Review of Systems 10-point ROS is otherwise unremarkable ENT: Other (s/p trach) Physical Examination - Vital Signs Temperature: 97.4 F Blood Pressure: 134/57 Pulse: 86 Respirations: 18 Pulse Ox (%): 99 - Studies Medications List Reviewed: Yes Assessment And Plan - Plan - Physical Exam General: Alert and oriented. No distress HEENT: Atraumatic, Sclerae nonicteric Neck: Supple Respiratory: S/P tracheostomy. Diminished, but clear to auscultation b ilaterally. Cardiovascular: No edema, Regular rate/rhythm, Normal S1 S2, No gallops, No rubs, No murmurs Gastrointestinal: Hypoactive, Soft and benign, Non-distended, No tenderness, No rebound, No guarding Musculoskeletal: No clubbing Integumentary: No rashes Neurological: Alert and oriented. No distress. Following commands. Moving all four extremities equally. # Acute Hypercapnic Respiratory Failure - possibly secondary to Posterior Left Supraglottic Soft Tissue Fullness with Vocal Cord Asymmetry s/p Tracheostomy # Acute Pharyngitis possibly secondary to Enterobacter Cloacae # Severe Pulmonary Hypertension - Evaluation thus far: - Procalcitonin = 1.85 - ABG = pH 7.21, PCO2 64.9, PO2 88.7 - Post-procedure chest x-ray = "tracheotomy tube has been placed and appears well positioned." - Management Plan: - Consulted Pulmonary Medicine and spoke with Dr. Gonzales - recommendations appreciated - Empirically started IV levothyroxine + dexamethasone - Consulted Otorhinolaryngology and spoke with Dr. Salas - recommendations appreciated - Post-op day # 5 from laryngoscopy + tracheostomy - Consulted Respiratory Therapy - Continue ceftriaxone based on sputum culture sensitivities - Ordered C1 esterase inhibitor and KENAN levels - Dobbhoff placed and started tube feeds - Nutrition consulted - recommendations appreciated - Consult PT/OT/PHYSICIST NUCLEAR - Appreciated CM assistance with placement - working on [facility] # Hypervolemia in End-Stage Renal Disease on MWF iHD # Hyperkalemia # Right Pulmonary Nodule (9 mm) # Suspect Steroid-Induced Leukocytosis - Evaluation thus far: - Chest x-ray = "prominence of the pulmonary interstitium could reflect pneumonia versus accentuation of vascular markings due to low lung volumes." - CT chest = "no focal pneumonia seen. There are atelectasis changes in each posterior gutter. Mild viral infiltrate or interstitial edema are still possible. A 9 mm pulmonary nodule is present in the right apex new from October 2020 imaging. No other pulmonary nodule seen. At 9 mm, the mass should be amenable to assessment with PET-CT imaging. Alternatively, reassessment in 3 months could be performed to monitor for growth." - CT neck = "prominence of the tonsils in soft tissues of the upper airway. This has a pharyngitis or other viral infiltrative process appearance. No retropharyngeal abscess, peritonsillar abscess or other surgically emergent finding. Posterior left supraglottic soft tissue fullness probably artifact of motion rather than mass. Vocal cord asymmetry is present. Follow-up outpatient direct visualization may be needed. Repeat examination when the patient can have better control of movement may be helpful as well." - Transthoracic echocardiogram = "1. severe pulmonary hypertension. right ventricular systolic pressure 55 mmHg. 2. normal left ventricular size and function. 3. no wall motion abnormality. 4. no effusion." - Management plan: - Consulted Pulmonary Medicine and spoke with Dr. Gonzales - recommendations appreciated - Consulted Nephrology - recommendations appreciated - Volume removal via hemodialysis # Type II Diabetes Mellitus - Correction scale insulin # Hypothyroidism - TSH = 54.3, Free T4 0.69, Free T3 1.05 - Continue levothyroxine Ramsey Brizuela M.D.
[2022-03-28] MEDS: HYDROCODONE/CHLORPHEN 5 ML/OSYR PO PRN ×2 (11:52→22:26)
[2022-03-28] MEDS: LEVOTHYROXINE SOD 0.1 MG TAB PO SCH (11:54)
--- NOTE | 2022-03-28 14:05 | P.PN ---
Subjective Date of Service: 03/28/22 Chief Complaint: S/p tracheostomy Subjective: No new changes Physical Examination - Vital Signs Temperature: 98.1 F Blood Pressure: 140/59 Pulse: 81 Respirations: 21 Pulse Ox (%): 99 - Physical Exam General: Other (Appears chronically ill) HEENT: Atraumatic, Normocephalic Neck: Supple Respiratory: Other (Symmetric chest expansion) Cardiovascular: No rubs, No murmurs Gastrointestinal: Soft and benign, No guarding Musculoskeletal: No clubbing Integumentary: No warmth Neurological: Normal tone Urinary: Other (No bladder distention) External genitalia: Deferred Rectal: Deferred - Studies Medications List Reviewed: Yes Assessment And Plan - Plan 1. End-stage renal disease on HD MWF. Received HD yesterday. No acute indication for HD today. 2. Volume overload. HD as above. 3. Hypertension. We will continue to utilize blood pressure for more ultrafiltration. 4. Anemia of chronic kidney disease. Continue SUMIT. 5. Acute respiratory failure secondary to over volume + acute pharyngitis/pneumonia + upper airway obstruction. Hx of severe pulmo Htn. S/p trach on 03/23. HD/UF as above. 6. Renal osteodystrophy. Monitor Ca & Phos. 7. Dispo. Dc plan to [facility] ongoing. Physician Review: Patient Assessed, Agree with Above Assessment and Plan
[2022-03-28] MEDS: ATORVASTATIN 40 MG TAB PO SCH (20:23)
[2022-03-28] MEDS: DIPHENHYDRAMINE 25 MG TAB/CAP PO PRN (20:23)
[2022-03-28] MEDS: HEPARIN 5000 UNIT/ML 1 ML VIAL SQ SCH (20:23)
[2022-03-28] MEDS ORDERED: MORPHINE 2 MG/ML SYR IV ONE (22:33)
[2022-03-29 05:08] LABS: Hematocrit 35.3 % (39.6-49.0); Lymphocytes % 6.2 % (15.3-44.8); MCV 97.1 fL (80-100); MPV 7.9 fL (7.6-11.3); RBC Red Blood Cell Count 3.63 M/uL (4.33-5.43)
[2022-03-29] MEDS: LEVOTHYROXINE SOD 0.1 MG TAB PO SCH (05:36)
[2022-03-29] MEDS: FENTANYL CITR 100 MCG/2 ML IV PRN ×3 (05:36→20:21)
[2022-03-29 05:43] LABS: Magnesium 3.2 mg/dL (1.8-2.4); Potassium 4.1 mmol/L (3.5-5.1)
[2022-03-29] MEDS: INSULIN -REGULAR HUMAN 50 UNIT/0.5 ML ML SQ SCH ×5 (05:47→23:55)
--- NOTE | 2022-03-29 08:09 | P.PN ---
Subjective Date of Service: 03/29/22 Chief Complaint: S/p tracheostomy Subjective: No new changes Physical Examination - Vital Signs Temperature: 98.1 F Blood Pressure: 140/59 Pulse: 81 Respirations: 21 Pulse Ox (%): 99 - Physical Exam General: Mild distress HEENT: Atraumatic, Normocephalic Neck: Other (+trach) Respiratory: Other (Symmetric chest expansion) Cardiovascular: No rubs, No murmurs Gastrointestinal: Soft and benign, No guarding Musculoskeletal: No clubbing Integumentary: No warmth Neurological: Normal tone Urinary: Other (No bladder distention) External genitalia: Deferred Rectal: Deferred - Studies Medications List Reviewed: Yes Assessment And Plan - Plan 1. End-stage renal disease on HD MWF. No acute indication for HD today. Next HD tomorrow. 2. Volume overload. HD as above. 3. Hypertension. We will continue to utilize blood pressure for more ultrafiltration. 4. Anemia of chronic kidney disease. Continue SUMIT. 5. Acute respiratory failure secondary to over volume + acute pharyngitis/pneumonia + upper airway obstruction. Hx of severe pulmo Htn. S/p trach on 03/23. HD/UF as above. 6. Renal osteodystrophy. Monitor Ca & Phos. 7. Dispo. Dc plan to [facility] ongoing. Physician Review: Patient Assessed, Agree with Above Assessment and Plan
[2022-03-29] MEDS: ASPIRIN 81 MG CHEWABLE TABLET PO SCH (08:59)
[2022-03-29] MEDS: SEVELAMER CARBONATE 800 MG TABLET PO SCH ×3 (08:59→16:36)
[2022-03-29] MEDS: CEFTRIAXONE 1,000 MG in NA CHLORIDE 0.9% 50 ML IVPB SCH (08:59)
[2022-03-29] MEDS: HEPARIN 5000 UNIT/ML 1 ML VIAL SQ SCH ×2 (08:59→20:19)
[2022-03-29] MEDS: NEPRO 1,000 ML BOT RTH SCH (09:00)
[2022-03-29] MEDS: HOME MED 1 EA UNK [FLUTICASONE 50MCG NASAL SPRAY] NAS SCH (09:00)
[2022-03-29] MEDS: HYDROCODONE/CHLORPHEN 5 ML/OSYR PO PRN ×2 (10:50→20:22)
[2022-03-29] MEDS: DIPHENHYDRAMINE 25 MG TAB/CAP PO PRN (20:21)
[2022-03-29] MEDS: ATORVASTATIN 40 MG TAB PO SCH (20:22)
[2022-03-30] MEDS: FENTANYL CITR 100 MCG/2 ML IV PRN ×3 (04:02→21:10)
[2022-03-30] MEDS: LEVOTHYROXINE SOD 0.1 MG TAB PO SCH (05:54)
[2022-03-30] MEDS: INSULIN -REGULAR HUMAN 50 UNIT/0.5 ML ML SQ SCH ×4 (05:55→23:47)
[2022-03-30 06:28] LABS: Hematocrit 31.4 % (39.6-49.0); Lymphocytes % 7.7 % (15.3-44.8); MCV 95.6 fL (80-100); MPV 7.2 fL (7.6-11.3); RBC Red Blood Cell Count 3.29 M/uL (4.33-5.43)
[2022-03-30 06:59] LABS: Albumin 2.9 g/dL (3.4-5.0); Bilirubin Total 0.3 mg/dL (0.2-1.0); Magnesium 3.4 mg/dL (1.8-2.4); Phosphorus 6.8 mg/dL (2.5-4.9); Potassium 4.5 mmol/L (3.5-5.1); Protein, Total 8.4 g/dL (6.4-8.2)
[2022-03-30] MEDS: SEVELAMER CARBONATE 800 MG TABLET PO SCH ×4 (08:01→12:15)
[2022-03-30] MEDS: ASPIRIN 81 MG CHEWABLE TABLET PO SCH (08:01)
[2022-03-30] MEDS: HEPARIN 5000 UNIT/ML 1 ML VIAL SQ SCH ×2 (08:01→21:10)
[2022-03-30] MEDS: CEFTRIAXONE 1,000 MG in NA CHLORIDE 0.9% 50 ML IVPB SCH (08:01)
[2022-03-30] MEDS: HOME MED 1 EA UNK [FLUTICASONE 50MCG NASAL SPRAY] NAS SCH (08:01)
--- NOTE | 2022-03-30 09:21 | RAD REPORT ---
EXAM DESCRIPTION: RAD - Chest Single View - 03/30/2022 5:59 am CLINICAL HISTORY: pneumonia Chest pain. COMPARISON: Chest Single View dated 03/27/2022; Abdomen 1 View (KUB) dated 03/27/2022; Abdomen 1 Vie w (KUB) dated 03/24/2022; Chest Single View dated 03/23/2022 FINDINGS: Portable technique limits examination quality. Tracheostomy tube is positioned its tip above the betty. Enteric tube descends into the upper abdome n. Mild bilateral pulmonary opacities seen with mild atelectasis in the right lung base. The heart is mildly enlarged in size.
--- NOTE | 2022-03-30 12:46 | P.PN ---
Subjective Date of Service: 03/30/22 Chief Complaint: S/p tracheostomy Doing well no complaints secretions have declined Review of Systems is unable to be obtained Physical Examination - Vital Signs Temperature: 98.1 F Blood Pressure: 140/59 Pulse: 81 Respirations: 21 Pulse Ox (%): 99 - Physical Exam General: Alert, Cooperative Respiratory: Clear to auscultation bilaterally Cardiovascular: No edema, Regular rate/rhythm - Studies Medications List Reviewed: Yes Assessment And Plan - Current Problems (Diagnosis) (1) Pulmonary hypertension Current Visit: Yes Status: Acute Plan: Patient is a 56 years of age end-stage renal disease on dialysis admitted with worsening dyspnea patient has severe pulmonary hypertension on echo no evidence of right ventricular dilatation right upper lobe apical opacity patient is an active smoker may have underlying COPD will need outpatient lung function testing bronchodilator at home at risk for sleep apnea need an outpatient sleep study CT of the neck did not show any evidence of obvious obstruction excessive soft tissue agree with discharge on low-dose steroids plus a bronchodilator outpatient treatment for possible pulmonary hypertension after her dilator therapy has been optimized pulmonary function testing and sleep apnea has been treated right now I sent a prescription for Advair (2) Abnormal CT scan, chest Current Visit: Yes Status: Acute Plan: Patient has right upper lobe/apical opacity is an active smoker will need to follow-up Radiologist report A 9 mm pulmonary nodule is present in the right apex new from October 2020 imaging. No other pulmonary nodule seen. At 9 mm, the mass should be amenable to assessment with PET-CT imaging. Alternatively, reassessment in 3 months could be performed to monitor for growth (3) Respiratory failure Current Visit: Yes Status: Acute Plan: Patient is s/p trach and doing well on trach collar the ventilator has thick secretions sputum culture shows Enterobacter cloacae and patient is sensitive to ceftriaxone trial of a Passy-Lavonne valve he is swallowing tube feeds patient's w natasha count is elevated white count may have been elevated from steroids which have been discontinued blood cultures so far negative Qualifiers: Chronicity: acute (4) Hypothyroid Current Visit: Yes Status: Acute Plan: Patient's free T3 and free T4 are very low addition to elevated TSH weekly hypothyroid/continue with IV Synthroid for now Qualifiers: Hypothyroidism type: unspecified Qualified Code(s): E03.9 - Hypothyroidism, unspecified (5) Status post tracheostomy Current Visit: Yes Status: Acute Plan: Patient is s/p tracheostomy doing well awaiting Passy-Mchenry valve apparently he has been accepted at [facility] White count is declining Enterobacter cloacae isolated from the sputum sensitive to cephalosporins awaiting Passy-Mchenry valve oxygenation satisfactory Physician Review: Patient Assessed, Agree with Above Assessment and Plan
--- NOTE | 2022-03-30 16:46 | RAD REPORT ---
EXAM DESCRIPTION: RAD - Abdomen 1 View (KUB) - 03/30/2022 4:26 pm CLINICAL HISTORY: Dobhoff placement COMPARISON: Abdomen 1 View (KUB) dated 03/27/2022; Abdomen 1 View (KUB) dated 03/24/2022; Chest Sing le View dated 03/30/2022 FINDINGS/IMPRESSION: Weighted feeding tube tip overlies the lower stomach. This is in satisfactory p osition. Bowel gas pattern is nonobstructive.
[2022-03-30] MEDS: EPOETIN 4,000 UNIT/ML VIAL IV SCH (20:45)
[2022-03-30] MEDS: ATORVASTATIN 40 MG TAB PO SCH (21:10)
[2022-03-30] MEDS: NEPRO 1,000 ML BOT RTH SCH (21:47)
--- NOTE | 2022-03-31 00:05 | PN ---
Date of Progress Note: 03/30/2022 Chief Complaint: End-stage renal disease. Subjective: Patient remains in ICU. The patient underwent tracheostomy. The patient is awake, aler t, and follows commands. Review of Systems: Unobtainable due to patient's condition. Physical Examination: Lungs: Coarse breath sounds bilaterally. Heart: S1, S2. Abdomen: Soft. Extremities: Slight edema in both ankles. Impression And Plan: 1.End-stage renal disease. Dialysis will be done today with mild ultrafiltration. Monitor blood pr essure closely to prevent intradialytic hypotension. 2.Hypertension. Blood pressure controlled. Continue to advance ultrafiltration as needed. Monitor blood pressure to prevent intradialytic hypotension. 3.Acute respiratory failure secondary to pneumonia, acute pharyngitis, fluid overload, and upper air way obstruction. Pulmonary Service is following. The patient underwent trach. 4.Renal osteodystrophy. Monitor calcium and phosphorus. 5.Anemia of chronic kidney disease. Continue SUMIT. EB/MODL Voice ID: [id number] Report ID: [id number]
[2022-03-31] MEDS: ONDANSETRON 4 MG/2 ML VIAL IV PRN (04:45)
[2022-03-31 04:56] VITALS: BMI 28.1
[2022-03-31] MEDS: INSULIN -REGULAR HUMAN 50 UNIT/0.5 ML ML SQ SCH ×3 (05:42→17:14)
[2022-03-31] MEDS: LEVOTHYROXINE SOD 0.1 MG TAB PO SCH (05:44)
--- NOTE | 2022-03-31 07:00 | P.PN ---
Date of Service: 03/29/22 Subjective Patient is clinically doing better. [facility]. Working with therapy. Review of Systems 10-point ROS is otherwise unremarkable Physical Examination - Vital Signs Reviewed - Physical Exam General: Alert and oriented. No distress HEENT: Within normal limits Neck: Trach in place Respiratory: Diminished, but clear to auscultation bilaterally. Cardiovascular: Regular rate/rhythm, Normal S1 S2, Gastrointestinal: Soft and benign, Non-distended, No tenderness, No rebound, No guarding Musculoskeletal: No clubbing Integumentary: No rashes Neurological: Alert and oriented. No distress. Following commands. Moving all four extremities equally. Assessment And Plan - Assessment # Acute Hypercapnic Respiratory Failure - possibly secondary to Posterior Left Supraglottic Soft Tissue Fullness with Vocal Cord Asymmetry s/p Tracheostomy # Acute Pharyngitis possibly secondary to Enterobacter Cloacae # Severe Pulmonary Hypertension # Hypervolemia in End-Stage Renal Disease on MWF iHD # Hyperkalemia # Right Pulmonary Nodule (9 mm) # Suspect Steroid-Induced Leukocytosis # Type II Diabetes Mellitus # Hypothyroidism - Plan -[facility] -Continue with antibiotic therapy -Hemodialysis per nephrology -Monitor labs closely -Strict blood pressure and blood sugar control
--- NOTE | 2022-03-31 07:00 | P.PN ---
Date of Service: 03/30/22 Subjective Continues to do well according to nursing staff. At this time, we are just waiting for placement. Patient has been stepdown to [facility] [place] [place] bed. If we have a bed on the floor we will transfer him out. Review of Systems 10-point ROS is otherwise unremarkable Physical Examination - Vital Signs Reviewed - Physical Exam General: Alert and oriented. No distress Neck: Trach in place Respiratory: Diminished, but clear to auscultation bilaterally. Cardiovascular: Regular rate/rhythm, Normal S1 S2, Gastrointestinal: Soft and benign, Non-distended, No tenderness, No rebound, No guarding Neurological: Alert and oriented. No distress. Following commands. Moving all four extremities equally. Assessment And Plan - Assessment # Acute Hypercapnic Respiratory Failure - possibly secondary to Posterior Left S upraglottic Soft Tissue Fullness with Vocal Cord Asymmetry s/p Tracheostomy # Acute Pharyngitis possibly secondary to Enterobacter Cloacae # Severe Pulmonary Hypertension # Hypervolemia in End-Stage Renal Disease on MWF iHD # Hyperkalemia # Right Pulmonary Nodule (9 mm) # Suspect Steroid-Induced Leukocytosis # Type II Diabetes Mellitus # Hypothyroidism - Plan Continue with plan of care as mentioned below: -Awaiting placement at [facility] -Continue with antibiotic therapy -Hemodialysis per nephrology -Monitor labs closely -Strict blood pressure and blood sugar control -Pulmonary follow-up for severe pulmonary hypertension; O2
--- NOTE | 2022-03-31 07:01 | P.PN ---
Date of Service: 03/31/22 Subjective Continues to do well according to nursing staff. At this time, we are just waiting for placement. Patient has been stepdown to [facility] bed. If we have a bed on the floor we will transfer him out. Review of Systems 10-point ROS is otherwise unremarkable Physical Examination - Vital Signs Reviewed - Physical Exam General: Alert and oriented. No distress Neck: Trach in place Respiratory: Diminished, but clear to auscultation bilaterally. Cardiovascular: Regular rate/rhythm, Normal S1 S2, Gastrointestinal: Soft and benign, Non-distended, No tenderness, No rebound, No guarding Neurological: Alert and oriented. No distress. Following commands. Moving all four extremities equally. Assessment And Plan - Assessment # Acute Hypercapnic Respiratory Failure - possibly secondary to Posterior Left S upraglottic Soft Tissue Fullness with Vocal Cord Asymmetry s/p Tracheostomy # Acute Pharyngitis possibly secondary to Enterobacter Cloacae # Severe Pulmonary Hypertension # Hypervolemia in End-Stage Renal Disease on MWF iHD # Hyperkalemia # Right Pulmonary Nodule (9 mm) # Suspect Steroid-Induced Leukocytosis # Type II Diabetes Mellitus # Hypothyroidism - Plan Continue with plan of care as mentioned below: -Awaiting placement at [facility] rehab -Continue with antibiotic therapy -Hemodialysis per nephrology -Monitor labs closely -Strict blood pressure and blood sugar control -Pulmonary follow-up for severe pulmonary hypertension; O2
[2022-03-31] MEDS: HOME MED 1 EA UNK [FLUTICASONE 50MCG NASAL SPRAY] NAS SCH (07:07)
[2022-03-31] MEDS: CEFTRIAXONE 1,000 MG in NA CHLORIDE 0.9% 50 ML IVPB SCH (07:23)
[2022-03-31] MEDS: ASPIRIN 81 MG CHEWABLE TABLET PO SCH (07:23)
[2022-03-31] MEDS: HEPARIN 5000 UNIT/ML 1 ML VIAL SQ SCH ×2 (07:23→21:59)
[2022-03-31] MEDS: SEVELAMER CARBONATE 800 MG TABLET PO SCH ×2 (07:23→12:00)
[2022-03-31] MEDS ORDERED: CIPROFLOXACIN HCL 500 MG TAB PO SCH (09:00)
[2022-03-31] MEDS: CIPROFLOXACIN HCL 500 MG TAB PO SCH (09:20)
[2022-03-31] MEDS: HYDROCODONE/CHLORPHEN 5 ML/OSYR PO PRN (09:20)
[2022-03-31] MEDS ORDERED: SEVELAMER CARBONATE 0.8 GM PACKET PO SCH ×2 (12:00→17:00)
[2022-03-31] MEDS: HYDROCODONE/APAP 5/325 MG TAB PO PRN (13:22)
[2022-03-31] MEDS ORDERED: NEPRO 1,000 ML BOT FT SCH (17:00)
[2022-03-31] MEDS: SEVELAMER CARBONATE 0.8 GM PACKET PO SCH (17:14)
[2022-03-31] MEDS: NEPRO 1,000 ML BOT FT SCH (17:14)
--- NOTE | 2022-03-31 18:32 | PN ---
Date of Progress Note: 03/31/2022 Subjective: The patient was admitted with respiratory failure. The patient has laryngitis. The patient had . The patient waiting for placement. Physical Examination: Vital Signs: When I saw the patient, blood pressure 140/70, pulse of 74, afebrile. Chest: Clear to auscultation. Heart: S1, S2. Regular. Abdomen: Soft, nontender. Extremities: No edema. Neurologic: Alert, no focality. Laboratory Data: WBC 12.5, H and H 10.2/31.4. Sodium 131, potassium 4.5, bicarb 27, BUN 98, creatinine 12, calcium 9.4, phosphorus 6.8. Magnesium 3.4. TSH 42. Current Medications: The patient on include: 1. Aspirin. 2. Ciprofloxacin. 3. Diphenhydramine. 4. Atorvastatin. 5. Tylenol. 6. Nepro. 7. Renvela 1.6 q.8. 8. Zofran. 9. Levothyroxine. Assessment And Plan: 1. End-stage renal disease, was admitted with over volume, currently normal volume. I am going to continue the patient on dialysis Wednesday, Wednesday, Wednesday and we will monitor the patient fluid status. 2. Hypertension, controlled optimal, continue current treatment. 3. Secondary hyperparathyroidism. Given that the patient on tube feeding, I am going to change his tube feeding to bolus to 240 ml and we will give Renvela right before to have efficacy. 4. Hyponatremia, will be corrected with dialysis. 5. sever disproportion in the BUN and creatinine with elevation in the BUN, I am going to go ahead and adjust on his dialysis regimen. I am going to increase his blood flow to 400 and increase his dialysis time to 3.5 hours and we will follow up the patient. 6. Over volume, currently normal volume. We will follow up Wednesday, Wednesday, Wednesday dialysis. Time spent examining the patient [id number], reviewing data, lab and radiology, discussing the case with the patient, discussing the case with steam tender including nursing and hospitalist more than 35 minutes JESUS Voice ID: [id number] Report ID: [id number] EFREN
[2022-03-31] MEDS: ATORVASTATIN 40 MG TAB PO SCH (21:59)
[2022-04-01] MEDS: DIPHENHYDRAMINE 25 MG TAB/CAP PO PRN (00:56)
[2022-04-01] MEDS: NEPRO 1,000 ML BOT FT SCH ×2 (00:56→09:00)
[2022-04-01] MEDS: SEVELAMER CARBONATE 0.8 GM PACKET PO SCH ×4 (01:02→23:21)
[2022-04-01] MEDS: HYDROCODONE/CHLORPHEN 5 ML/OSYR PO PRN ×3 (03:00→22:41)
[2022-04-01] MEDS: LEVOTHYROXINE SOD 0.1 MG TAB PO SCH (06:00)
[2022-04-01] MEDS: INSULIN -REGULAR HUMAN 50 UNIT/0.5 ML ML SQ SCH ×5 (06:00→20:04)
--- NOTE | 2022-04-01 08:07 | RAD REPORT ---
EXAM DESCRIPTION: Phil Single View04/01/2022 5:31 am CLINICAL HISTORY: Cough COMPARISON: March 30, 2022 FINDINGS: The right basilar opacity unchanged which could represent atelectasis or infiltrate. Left lung appears clear of acute opacities. The heart is normal size. Tracheostomy tube in place
[2022-04-01] MEDS: ONDANSETRON 4 MG/2 ML VIAL IV PRN (08:09)
[2022-04-01] MEDS: ASPIRIN 81 MG CHEWABLE TABLET PO SCH (09:00)
[2022-04-01] MEDS: HOME MED 1 EA UNK [FLUTICASONE 50MCG NASAL SPRAY] NAS SCH (09:00)
[2022-04-01] MEDS: HEPARIN 5000 UNIT/ML 1 ML VIAL SQ SCH ×2 (09:00→20:52)
[2022-04-01] MEDS: CIPROFLOXACIN HCL 500 MG TAB PO SCH (09:45)
[2022-04-01] MEDS: HYDROCODONE/APAP 5/325 MG TAB PO PRN ×2 (09:45→20:58)
--- NOTE | 2022-04-01 09:56 | RAD REPORT ---
EXAM DESCRIPTION: RAD - Barium Swallow Modified - 04/01/2022 9:48 am CLINICAL HISTORY: Pneumonia/new tracheostomy FINDINGS: Laryngeal penetration: cleared Reduced hyolaryngeal excursion without significant impact on airway closure. No aspiration. Eleven fluoroscopic spot series obtained. Fluoroscopy time 1.3 minutes
[2022-04-01 10:04] LABS: Hematocrit 28.5 % (39.6-49.0); Lymphocytes % 7.8 % (15.3-44.8); MCV 94.1 fL (80-100); MPV 7.7 fL (7.6-11.3); RBC Red Blood Cell Count 3.03 M/uL (4.33-5.43)
[2022-04-01 10:34] LABS: Magnesium 3.1 mg/dL (1.8-2.4)
--- NOTE | 2022-04-01 16:45 | PN ---
Date of Progress Note: 04/01/2022 Subjective: The patient was admitted with pneumonia, respiratory failure, laryngitis. The patient had tracheostomy. Physical Examination: Vital Signs: Blood pressure 158/78, pulse of 65, afebrile. Chest: Clear to auscultation. Heart: S1, S2. Systolic murmur. Abdomen: Obese. No organomegaly. Extremities: No edema. Neurologic: Alert, oriented x3. No focal. Laboratory Data: Hemoglobin 9.5. Sodium 131, potassium 5, bicarb 27, BUN 81, creatinine 10.9, magnesium of 3.1. BNP 7146. Current Medications: The patient on include ciprofloxacin, aspirin, Epogen, atorvastatin, Renvela. Assessment And Plan: 1. End-stage renal disease. We will continue the patient on dialysis Wednesday, Wednesday, Wednesday; due for dialysis today. We will follow up. 2. Hypertension, controlled, optimal. Continue current treatment. 3. Secondary hyperparathyroidism. Continue Renvela. 4. Respiratory failure, status post tracheostomy. We will follow up with Pulmonary. Plan for discharge to rehab. 5. Diabetes as by primary. Time spent examining the patient [id number], reviewing data, lab and radiology, discussing the case with the patient, discussing the case with sales floor team leader including nursing and hospitalist more than 35 minutes JESUS Voice ID: [id number] Report ID: [id number] MTDD
[2022-04-01] MEDS: ATORVASTATIN 40 MG TAB PO SCH (20:51)
[2022-04-02] MEDS: DIPHENHYDRAMINE 25 MG TAB/CAP PO PRN (01:43)
[2022-04-02] MEDS: LEVOTHYROXINE SOD 0.1 MG TAB PO SCH (05:20)
[2022-04-02] MEDS: INSULIN -REGULAR HUMAN 50 UNIT/0.5 ML ML SQ SCH ×4 (07:30→20:58)
[2022-04-02] MEDS: HOME MED 1 EA UNK [FLUTICASONE 50MCG NASAL SPRAY] NAS SCH (09:00)
[2022-04-02] MEDS: CIPROFLOXACIN HCL 500 MG TAB PO SCH (09:00)
[2022-04-02] MEDS: HEPARIN 5000 UNIT/ML 1 ML VIAL SQ SCH ×2 (09:59→20:42)
[2022-04-02] MEDS: ASPIRIN 81 MG CHEWABLE TABLET PO SCH (09:59)
[2022-04-02] MEDS: SEVELAMER CARBONATE 0.8 GM PACKET PO SCH ×3 (09:59→17:38)
[2022-04-02] MEDS: HYDROCODONE/CHLORPHEN 5 ML/OSYR PO PRN (10:05)
[2022-04-02] MEDS: HYDROCODONE/APAP 5/325 MG TAB PO PRN (17:52)
--- NOTE | 2022-04-02 18:44 | PN ---
Date of Progress Note: 04/02/2022 Subjective: The patient was admitted with pneumonia and laryngitis. The patient had tracheostomy. The patient with end-stage renal disease, on hemodialysis, maintained on dialysis. Physical Examination: Vital Signs: Blood pressure 114/61, pulse of 71. Chest: Clear to auscultation. Heart: S1, S2, regular. Abdomen: Soft, nontender. No organomegaly. Morbidly obese. Extremities: No edema. Neurologic: Alert. No focality. Head and Neck: The patient had tracheostomy. Laboratory Data: Hemoglobin 9.5. Sodium 131, potassium 5, bicarb 27, BUN 81, creatinine 10.9, calcium 9.0, magnesium 3.1. Current Medications: The patient on, include: 1. Heparin. 2. Epogen. 3. Tylenol. 4. Renvela. 5. Levothyroxine. 6. Hydrocodone. Assessment And Plan: 1. End-stage renal disease, over volume, status post dialysis, currently normal volume. We will continue and maintain the patient on dialysis Wednesday, Wednesday, Wednesday. The patient is going to be scheduled for dialysis tomorrow. Given the elevation in the BUN, I am going to go ahead and increase his time and blood flow. 2. Hypertension, controlled, optimal. Continue to monitor the patient. 3. Anemia of chronic kidney disease. Continue SUMIT. 4. Secondary hyperparathyroidism. Continue Renvela. I will follow up phosphorous level tomorrow. 5. Laryngitis, respiratory failure, status post tracheostomy. We will follow up with ENT. 6. Deconditioning. Continue PT/OT. Waiting for rehab placement. Time spent examining the patient [id number], reviewing data, lab and radiology, discussing the case with the patient, discussing the case with engineering team supervisor including nursing and hospitalist more than 35 minutes JESUS Voice ID: [id number] Report ID: [id number] EFREN
[2022-04-02] MEDS: ATORVASTATIN 40 MG TAB PO SCH (20:41)
[2022-04-03] MEDS: HYDROCODONE/CHLORPHEN 5 ML/OSYR PO PRN ×2 (01:58→16:10)
[2022-04-03 04:53] LABS: Albumin 2.7 g/dL (3.4-5.0); Phosphorus 5.4 mg/dL (2.5-4.9); Potassium 4.8 mmol/L (3.5-5.1)
[2022-04-03] MEDS: LEVOTHYROXINE SOD 0.1 MG TAB PO SCH (05:09)
[2022-04-03] MEDS: HOME MED 1 EA UNK [FLUTICASONE 50MCG NASAL SPRAY] NAS SCH (05:36)
[2022-04-03] MEDS: INSULIN -REGULAR HUMAN 50 UNIT/0.5 ML ML SQ SCH ×4 (07:30→21:00)
[2022-04-03] MEDS: SEVELAMER CARBONATE 0.8 GM PACKET PO SCH ×3 (08:00→17:00)
[2022-04-03] MEDS: CIPROFLOXACIN HCL 500 MG TAB PO SCH (08:46)
[2022-04-03] MEDS: HEPARIN 5000 UNIT/ML 1 ML VIAL SQ SCH ×2 (08:46→21:21)
[2022-04-03] MEDS: ASPIRIN 81 MG CHEWABLE TABLET PO SCH (08:46)
[2022-04-03 11:45] LABS: Absolute Lymphocytes (CBC) 0.9 K/uL (0.7-4.9); Hematocrit 29.6 % (39.6-49.0); Lymphocytes % 8.3 % (15.3-44.8); MCV 93.6 fL (80-100); MPV 6.8 fL (7.6-11.3); RBC Red Blood Cell Count 3.17 M/uL (4.33-5.43)
[2022-04-03] MEDS: EPOETIN 4,000 UNIT/ML VIAL IV SCH (13:00)
--- NOTE | 2022-04-03 14:01 | P.PN ---
Subjective Date of Service: 04/03/22 Chief Complaint: S/p tracheostomy Subjective: Other (Received HD today.) Physical Examination - Vital Signs Temperature: 97.5 F Blood Pressure: 167/76 Pulse: 82 Respirations: 18 Pulse Ox (%): 97 - Physical Exam General: Other (Chronically ill appearing) HEENT: Atraumatic, Normocephalic Neck: Supple, Other (+trach) Respiratory: Other (Symmetric chest expansion) Cardiovascular: No rubs, No murmurs Gastrointestinal: Soft and benign, No guarding Musculoskeletal: No clubbing Integumentary: No warmth Neurological: Normal tone Urinary: Other (No bladder distention) External genitalia: Deferred Rectal: Deferred - Studies Medications List Reviewed: Yes Assessment And Plan - Plan 1. End-stage renal disease on HD MWF. Received HD today. 2. Volume overload. HD as above. 3. Hypertension. We will continue to utilize blood pressure for more ultrafiltration. 4. Anemia of chronic kidney disease. Continue SUMIT. 5. Acute respiratory failure secondary to over volume + acute pharyngitis/pneumonia + upper airway obstruction. Hx of severe pulmo Htn. S/p trach on 03/23. HD/UF as above. 6. Renal osteodystrophy. Monitor Ca & Phos. 7. Dispo. Dc plan to [facility] ongoing. Physician Review: Patient Assessed, Agree with Above Assessment and Plan
--- NOTE | 2022-04-03 14:57 | P.PN ---
Subjective Date of Service: 04/03/22 Chief Complaint: S/p tracheostomy Patient is improving doing well his facial swelling has decreased he is now swallowing food accretions have decreased Review of Systems is unable to be obtained Physical Examination - Vital Signs Temperature: 97.5 F Blood Pressure: 167/76 Pulse: 82 Respirations: 18 Pulse Ox (%): 97 - Physical Exam General: Alert, Cooperative Respiratory: Clear to auscultation bilaterally Cardiovascular: No edema, Regular rate/rhythm Gastrointestinal: Normal bowel sounds, Soft and benign - Studies Medications List Reviewed: Yes Assessment And Plan - Current Problems (Diagnosis) (1) Pulmonary hypertension Current Visit: Yes Status: Acute Plan: Patient is a 56 years of age end-stage renal disease on dialysis admitted with worsening dyspnea patient has severe pulmonary hypertension on echo no evidence of right ventricular dilatation right upper lobe apical opacity patient is an active smoker may have underlying COPD will need outpatient lung function testing bronchodilator at home at risk for sleep apnea need an outpatient sleep study CT of the neck did not show any evidence of obvious obstruction excessive soft tissue agree with discharge on low-dose steroids plus a bronchodilator outpatient treatment for possible pulmonary hypertension after her dilator therapy has been optimized pulmonary function testing and sleep apnea has been treated right now I sent a prescription for Advair (2) Abnormal CT scan, chest Current Visit: Yes Status: Acute Plan: Patient has right upper lobe/apical opacity is an active smoker will need to follow-up Radiologist report A 9 mm pulmonary nodule is present in the right apex new from October 2020 imaging. No other pulmonary nodule seen. At 9 mm, the mass should be amenable to assessment with PET-CT imaging. Alternatively, reassessment in 3 months could be performed to monitor for growth (3) Respiratory failure Current Visit: Yes Status: Acute Plan: S/p trach doing better I have requested a [place] valve again white count is back down to normal patient has chronic renal failure patient has chronic renal failure on dialysis his vital signs all stable stable for discharge with home health and the [place] valve Qualifiers: Chronicity: acute (4) Hypothyroid Current Visit: Yes Status: Acute Plan: Patient's free T3 and free T4 are very low addition to elevated TSH weekly hypothyroid/continue with IV Synthroid for now Qualifiers: Hypothyroidism type: unspecified Qualified Code(s): E03.9 - Hypothyroidism, unspecified (5) Status post tracheostomy Current Visit: Yes Status: Acute Plan: Patient is s/p tracheostomy doing well awaiting [place] valve apparently he has been accepted at [facility] White count is declining Enterobacter cloacae isolated from the sputum sensitive to cephalosporins awaiting [place] valve oxygenation satisfactory Physician Review: Patient Assessed, Agree with Above Assessment and Plan
--- NOTE | 2022-04-03 16:02 | P.PN ---
Date of Service: 04/01/22 Subjective Please to accept the patient. Patient is doing well and has no complaints. There is an issue with patient being on the trach collar. Respiratory therapy was weaned to trach collar on 8 L. [facility] home health is having concerns about this so I will turn it down to 4 L. Review of Systems 10-point ROS is otherwise unremarkable Physical Examination - Vital Signs Reviewed - Physical Exam General: Alert and oriented. No distress Neck: Trach in place Respiratory: Diminished, but clear to auscultation bilaterally. Cardiovascular: Regular rate/rhythm, Normal S1 S2, Gastrointestinal: Soft and benign, Non-distended, No tenderness, No rebound, No guarding Neurological: Alert and oriented. No distress. Following commands. Moving all four extremities equally. Assessment And Plan - Assessment # Acute Hypercapnic Respiratory Failure - possibly secondary to Posterior Left Supraglottic Soft Tissue Fullness with Vocal Cord Asymmetry s/p Tracheostomy # Acute Pharyngitis possibly secondary to Enterobacter Cloacae # Severe Pulmonary Hypertension # Hypervolemia in End-Stage Renal Disease on MWF iHD # Hyperkalemia # Right Pulmonary Nodule (9 mm) # Suspect Steroid-Induced Leukocytosis # Type II Diabetes Mellitus # Hypothyroidism - Plan Continue with plan of care as mentioned below: -Awaiting placement at [facility] -Continue with antibiotic therapy -Hemodialysis per nephrology -Monitor labs closely -Strict blood pressure and blood sugar control -Pulmonary follow-up for severe pulmonary hypertension; O2 per trach collar. Very minimal oxygen requirements
--- NOTE | 2022-04-03 16:05 | P.PN ---
Date of Service: 04/02/22 Subjective Continues to do well with no complaints. Waiting for him accepted to [facility]. Not really sure why they are not excepting him. He is clinically stable. He looks like he is doing well. He is willing to participate with physical therapy. His oxygen requirements are very minimal. He is only using a trach collar at this time. Review of Systems 10-point ROS is otherwise unremarkable Physical Examination - Vital Signs Reviewed - Physical Exam General: Alert and oriented. No distress Neck: Trach in place Respiratory: Diminished, but clear to auscultation bilaterally. Cardiovascular: Regular rate/rhythm, Normal S1 S2, Gastrointestinal: Soft and benign, Non-distended, No tenderness, No rebound, No guarding Neurological: Alert and oriented. No distress. Following commands. Moving all four extremities equally. Assessment And Plan - Assessment # Acute Hypercapnic Respiratory Failure - possibly secondary to Posterior Left Supraglottic Soft Tissue Fullness with Vocal Cord Asymmetry s/p Tracheostomy # Acute Pharyngitis possibly secondary to Enterobacter Cloacae # Severe Pulmonary Hypertension # Hypervolemia in End-Stage Renal Disease on MWF iHD # Hyperkalemia # Right Pulmonary Nodule (9 mm) # Suspect Steroid-Induced Leukocytosis # Type II Diabetes Mellitus # Hypothyroidism - Plan Continue with plan of care as mentioned below: -Awaiting placement at [facility] -Continue with antibiotic therapy -Hemodialysis per nephrology -Monitor labs closely -Strict blood pressure and blood sugar control -Pulmonary follow-up for severe pulmonary hypertension; O2 per trach collar. Very minimal oxygen requirements -Not clear as to why [facility] is not accepting patient & why insurance has not approved for critical care myopathy.
--- NOTE | 2022-04-03 16:06 | P.PN ---
Date of Service: 04/03/22 Subjective Pt doing well; 04/02 Continues to do well with no complaints. Waiting for him accepted to [facility]. Not really sure why they are not excepting him. He is clinically stable. He looks like he is doing well. He is willing to participate with physical therapy. His oxygen requirements are very minimal. He is only using a trach collar at this time. Review of Systems 10-point ROS is otherwise unremarkable Physical Examination - Vital Signs Reviewed - Physical Exam General: Alert and oriented. No distress Neck: Trach in place Respiratory: Diminished, but clear to auscultation bilaterally. Cardiovascular: Regular rate/rhythm, Normal S1 S2, Gastrointestinal: Soft and benign, Non-distended, No tenderness, No rebound, No guarding Neurological: Alert and oriented. No distress. Following commands. Moving all four extremities equally. Assessment And Plan - Assessment # Acute Hypercapnic Respiratory Failure - possibly secondary to Posterior Left Supraglottic Soft Tissue Fullness with Vocal Cord Asymmetry s/p Tracheostomy # Acute Pharyngitis possibly secondary to Enterobacter Cloacae # Severe Pulmonary Hypertension # Hypervolemia in End-Stage Renal Disease on MWF iHD # Hyperkalemia # Right Pulmonary Nodule (9 mm) # Suspect Steroid-Induced Leukocytosis # Type II Diabetes Mellitus # Hypothyroidism - Plan Continue with plan of care as mentioned below: -Awaiting placement at [facility] -Continue with antibiotic therapy -Hemodialysis per nephrology -Monitor labs closely -Strict blood pressure and blood sugar control -Pulmonary follow-up for severe pulmonary hypertension; O2 per trach collar. Very minimal oxygen requirements -Not clear as to why [facility] is not accepting patient & why insurance has not approved for critical care myopathy.
[2022-04-03] MEDS: HYDROCODONE/APAP 5/325 MG TAB PO PRN (21:20)
[2022-04-03] MEDS: ATORVASTATIN 40 MG TAB PO SCH (21:21)
[2022-04-04] MEDS: LEVOTHYROXINE SOD 0.1 MG TAB PO SCH (05:27)
[2022-04-04 06:49] LABS: Absolute Lymphocytes (CBC) 1.3 K/uL (0.7-4.9); Hematocrit 30.5 % (39.6-49.0); Lymphocytes % 12.8 % (15.3-44.8); MCV 94.4 fL (80-100); RBC Red Blood Cell Count 3.23 M/uL (4.33-5.43)
[2022-04-04 07:04] LABS: Albumin 2.9 g/dL (3.4-5.0); Potassium 4.3 mmol/L (3.5-5.1)
[2022-04-04 07:17] LABS: Thyroid Stimulating Hormone 71.5 uIU/mL (0.360-3.740)
[2022-04-04] MEDS: INSULIN -REGULAR HUMAN 50 UNIT/0.5 ML ML SQ SCH ×4 (07:30→21:00)
[2022-04-04] MEDS: SEVELAMER CARBONATE 0.8 GM PACKET PO SCH ×3 (08:05→16:20)
[2022-04-04] MEDS: ASPIRIN 81 MG CHEWABLE TABLET PO SCH (08:05)
[2022-04-04] MEDS: CIPROFLOXACIN HCL 500 MG TAB PO SCH (08:05)
[2022-04-04] MEDS: HEPARIN 5000 UNIT/ML 1 ML VIAL SQ SCH ×2 (08:05→21:05)
--- NOTE | 2022-04-04 08:05 | RAD REPORT ---
EXAM DESCRIPTION: Miket Single View04/04/2022 7:05 am CLINICAL HISTORY: Cough COMPARISON: April 01, 2022 FINDINGS: Mild improvement in a right basilar opacity probably atelectasis Left lung appears clear of acute infiltrate. Heart is normal size. Tracheostomy tube in place
[2022-04-04] MEDS: HOME MED 1 EA UNK [FLUTICASONE 50MCG NASAL SPRAY] NAS SCH (09:00)
[2022-04-04] MEDS: HYDROCODONE/CHLORPHEN 5 ML/OSYR PO PRN ×2 (09:34→21:05)
--- NOTE | 2022-04-04 12:32 | P.PN ---
Subjective Date of Service: 04/04/22 Chief Complaint: S/p tracheostomy Subjective No overnight events stable VS cont HD Physical Exam General: awake and alert NEck: Tracheosotmy HEENT PERRLA, moist mucose membrane neck: supple, no elevated JVD CHEST; decreased air entry HEART : RRR. Normal S1,2 no murmur or rub Abd: soft, Nt Ext: edema . Lt AVFF , with +ve bruit Skin : No rash # End-stage renal disease. Cont HD REnal diet renal dose medications #Anemia of chronic kidney disease. Continue SUMIT. Monitor H/HJ and transfuse if Hb <7.0 #Respiratory failure : possibly due to strider and upper airway obstruction S/P tracheotomy on 03/23 and with Trachcollar support #Renal osteodystrophy. cont Renvela Monitor Ca & Phos. #Hypothyrodism on Synthroid Total time spent 45 minutes including documentation, reviewing labs , Physical Examination - Vital Signs Temperature: 97.7 F Blood Pressure: 137/72 Pulse: 65 Respirations: 16 Pulse Ox (%): 95 - Studies Medications List Reviewed: Yes Assessment And Plan Physician Review: Patient Assessed, Agree with Above Assessment and Plan
[2022-04-04] MEDS: ATORVASTATIN 40 MG TAB PO SCH (21:05)
[2022-04-05] MEDS: LEVOTHYROXINE SOD 0.1 MG TAB PO SCH (05:14)
[2022-04-05 06:32] LABS: Albumin 2.8 g/dL (3.4-5.0); Potassium 4.4 mmol/L (3.5-5.1)
[2022-04-05] MEDS: INSULIN -REGULAR HUMAN 50 UNIT/0.5 ML ML SQ SCH ×4 (07:29→21:00)
[2022-04-05] MEDS: SEVELAMER CARBONATE 0.8 GM PACKET PO SCH ×3 (07:58→17:04)
[2022-04-05] MEDS: CIPROFLOXACIN HCL 500 MG TAB PO SCH (07:58)
[2022-04-05] MEDS: ASPIRIN 81 MG CHEWABLE TABLET PO SCH (07:58)
[2022-04-05] MEDS: HEPARIN 5000 UNIT/ML 1 ML VIAL SQ SCH ×2 (07:58→21:33)
[2022-04-05] MEDS: HYDROCODONE/CHLORPHEN 5 ML/OSYR PO PRN ×2 (08:43→21:36)
[2022-04-05] MEDS: HOME MED 1 EA UNK [FLUTICASONE 50MCG NASAL SPRAY] NAS SCH (09:00)
--- NOTE | 2022-04-05 11:43 | P.PN ---
Subjective Date of Service: 04/05/22 Chief Complaint: S/p tracheostomy Subjective No overnight events stable VS HD MWF Physical Exam General: awake and alert NEck: Tracheosotmy HEENT PERRLA, moist mucose membrane neck: supple, no elevated JVD CHEST; decreased air entry HEART : RRR. Normal S1,2 no murmur or rub Abd: soft, Nt Ext: edema . Lt AVFF , with +ve bruit Skin : No rash # End-stage renal disease. Cont HD MWF REnal diet renal dose medications #Anemia of chronic kidney disease. Continue SUMIT. Monitor H/HJ and transfuse if Hb <7.0 #Respiratory failure : possibly due to strider and upper airway obstruction S/P tracheotomy on 03/23 and with Trachcollar support #Renal osteodystrophy. cont Renvela Monitor Ca & Phos. #Hypothyrodism on Synthroid Total time spent 45 minutes including documentation, reviewing labs , Physical Examination - Vital Signs Temperature: 97.7 F Blood Pressure: 139/71 Pulse: 66 Respirations: 17 Pulse Ox (%): 99 - Studies Medications List Reviewed: Yes Assessment And Plan Physician Review: Patient Assessed, Agree with Above Assessment and Plan
[2022-04-05] MEDS: ATORVASTATIN 40 MG TAB PO SCH (21:33)
[2022-04-06] MEDS: LEVOTHYROXINE SOD 0.1 MG TAB PO SCH (06:28)
[2022-04-06 06:45] LABS: Albumin 2.8 g/dL (3.4-5.0); Potassium 5.1 mmol/L (3.5-5.1)
[2022-04-06] MEDS ORDERED: ALBUTEROL 2.5 MG/3 ML NEB SOL NEB PRN ×2 (07:18→15:00)
[2022-04-06] MEDS: INSULIN -REGULAR HUMAN 50 UNIT/0.5 ML ML SQ SCH ×4 (07:30→21:33)
[2022-04-06] MEDS: HEPARIN 5000 UNIT/ML 1 ML VIAL SQ SCH ×2 (08:50→21:32)
[2022-04-06] MEDS: SEVELAMER CARBONATE 0.8 GM PACKET PO SCH ×3 (08:50→17:00)
[2022-04-06] MEDS: CIPROFLOXACIN HCL 500 MG TAB PO SCH (08:51)
[2022-04-06] MEDS: HOME MED 1 EA UNK [FLUTICASONE 50MCG NASAL SPRAY] NAS SCH (08:51)
[2022-04-06] MEDS: ASPIRIN 81 MG CHEWABLE TABLET PO SCH (08:51)
[2022-04-06] MEDS: HYDROCODONE/CHLORPHEN 5 ML/OSYR PO PRN ×2 (09:03→18:38)
[2022-04-06] MEDS ORDERED: POLYETHYL GLY 3350 17 GM/DOSE PO ONE (10:27)
--- NOTE | 2022-04-06 15:46 | P.PN ---
Date of Service: 04/04/22 Subjective Pt doing well; Physical Examination - Vital Signs Reviewed - Physical Exam General: Alert and oriented. No distress Neck: Trach in place Respiratory: Diminished, but clear to auscultation bilaterally. Cardiovascular: Regular rate/rhythm, Normal S1 S2, Gastrointestinal: Soft and benign, Non-distended, No tenderness, No rebound, No guarding Neurological: Alert and oriented. No distress. Following commands. Moving all four extremities equally. Assessment And Plan - Assessment # Acute Hypercapnic Respiratory Failure - possibly secondary to Posterior Left Supraglottic Soft Tissue Fullness with Vocal Cord Asymmetry s/p Tracheostomy # Acute Pharyngitis possibly secondary to Enterobacter Cloacae # Severe Pulmonary Hypertension # Hypervolemia in End-Stage Renal Disease on MWF iHD # Hyperkalemia # Right Pulmonary Nodule (9 mm) # Suspect Steroid-Induced Leukocytosis # Type II Diabetes Mellitus # Hypothyroidism - Plan Continue with plan of care as mentioned below: -Awaiting placement at [facility] -Continue with antibiotic therapy -Hemodialysis per nephrology -Pulmonary follow-up for severe pulmonary hypertension; O2 with trach collar. Very minimal oxygen requirements -Not clear as to why [facility] is not accepting patient & why insurance has not approved for critical care myopathy.
--- NOTE | 2022-04-06 15:48 | P.PN ---
Date of Service: 04/05/22 Subjective Pt doing well; no changes; will need to change trach soon Physical Examination - Vital Signs Reviewed - Physical Exam General: Alert and oriented. No distress Neck: Trach in place Respiratory: Diminished, but clear to auscultation bilaterally. Cardiovascular: Regular rate/rhythm, Normal S1 S2, Gastrointestinal: Soft and benign, Non-distended, No tenderness, No rebound, No guarding Neurological: Alert and oriented. No distress. Following commands. Moving all four extremities equally. Assessment And Plan - Assessment # Acute Hypercapnic Respiratory Failure - possibly secondary to Posterior Left Supraglottic Soft Tissue Fullness with Vocal Cord Asymmetry s/p Tracheostomy # Acute Pharyngitis possibly secondary to Enterobacter Cloacae # Severe Pulmonary Hypertension # Hypervolemia in End-Stage Renal Disease on MWF iHD # Hyperkalemia # Right Pulmonary Nodule (9 mm) # Suspect Steroid-Induced Leukocytosis # Type II Diabetes Mellitus # Hypothyroidism - Plan Continue with plan of care as mentioned below: -Awaiting placement at [facility] -Continue with antibiotics -Continue with hemodialysis per nephrology -Pulmonary follow-up for severe pulmonary hypertension; O2 with trach collar. Very minimal oxygen requirements -Not clear as to why [facility] is not accepting patient & why insurance has not approved for critical care myopathy.
[2022-04-06] MEDS: EPOETIN 4,000 UNIT/ML VIAL IV SCH (16:00)
[2022-04-06] MEDS: ATORVASTATIN 40 MG TAB PO SCH (21:33)
--- NOTE | 2022-04-06 22:18 | PN ---
Date of Progress Note: 04/06/2022 Chief Complaint: End-stage renal disease, on hemodialysis. Status post tracheostomy. Subjective: The patient is transferred out from ICU to telemetry floor. The patient has end-stage r enal disease and dialysis is scheduled for today. Review of Systems: The patient denies new complaints. Physical Examination: Lungs: Normal respiratory effort. Heart: S1, S2. No pericardial friction or rub. Abdomen: Soft, benign. Extremities: Slight edema in both legs. Impression And Plan: 1.End-stage renal disease. Continue dialysis with ultrafiltration. Monitor blood pressure during d ialysis. Adjust ultrafiltration goal to prevent intradialytic hypotension. 2.Respiratory failure, status post tracheostomy. The patient will follow up with Pulmonary. 3.Anemia of chronic kidney disease. Continue SUMIT. 4.Renal osteodystrophy. Continue to monitor calcium and phosphorus level. Continue Renvela. 5.Hypothyroidism, on Synthroid. 6.Fluid overload, mild. Controlled with dialysis. Continue ultrafiltration. EB/MODL Voice ID: [id number] Report ID: [id number]
--- NOTE | 2022-04-06 23:01 | P.PN ---
Date of Service: 04/06/22 Subjective Pt stable; no changes; may need to change trach soon; Physical Examination - Vital Signs Reviewed - Physical Exam General: Alert and oriented. No distress Neck: Trach in place with trach collar covering Respiratory: Clear to auscultation bilaterally. Cardiovascular: Regular rate/rhythm, Normal S1 S2, Gastrointestinal: Soft and benign, Non-distended, No tenderness, No rebound, No guarding Neurological: Alert and oriented. No focal deficits Assessment And Plan - Assessment # Acute Hypercapnic Respiratory Failure - possibly secondary to Posterior Left Supraglottic Soft Tissue Fullness with Vocal Cord Asymmetry s/p Tracheostomy # Acute Pharyngitis possibly secondary to Enterobacter Cloacae # Severe Pulmonary Hypertension # Hypervolemia in End-Stage Renal Disease on MWF iHD # Hyperkalemia # Right Pulmonary Nodule (9 mm) # Suspect Steroid-Induced Leukocytosis # Type II Diabetes Mellitus # Hypothyroidism # Critical care myopathy - Plan Continue with plan of care as mentioned below: -Awaiting placement at [facility] -Continue with antibiotics -Continue with hemodialysis per nephrology; mild hyponatremia and will monitor -Pulmonary follow-up for severe pulmonary hypertension; O2 with trach collar. Very minimal oxygen requirements -Awaiting for [facility] & insurance complany for acceptance
[2022-04-07] MEDS: LEVOTHYROXINE SOD 0.1 MG TAB PO SCH (06:12)
[2022-04-07 06:17] LABS: Absolute Lymphocytes (CBC) 1.2 K/uL (0.7-4.9); Hematocrit 30.8 % (39.6-49.0); Lymphocytes % 10.6 % (15.3-44.8); MCV 93.6 fL (80-100); MPV 6.6 fL (7.6-11.3); RBC Red Blood Cell Count 3.29 M/uL (4.33-5.43)
[2022-04-07 06:37] LABS: Bilirubin Total 0.3 mg/dL (0.2-1.0); Magnesium 2.5 mg/dL (1.8-2.4); Phosphorus 3.6 mg/dL (2.5-4.9); Potassium 4.9 mmol/L (3.5-5.1); Protein, Total 8.4 g/dL (6.4-8.2)
[2022-04-07] MEDS: INSULIN -REGULAR HUMAN 50 UNIT/0.5 ML ML SQ SCH ×3 (07:30→16:26)
[2022-04-07] MEDS: ASPIRIN 81 MG CHEWABLE TABLET PO SCH (08:30)
[2022-04-07] MEDS: SEVELAMER CARBONATE 0.8 GM PACKET PO SCH (08:30)
[2022-04-07] MEDS: CIPROFLOXACIN HCL 500 MG TAB PO SCH (08:30)
[2022-04-07] MEDS: HEPARIN 5000 UNIT/ML 1 ML VIAL SQ SCH (08:30)
[2022-04-07] MEDS: HOME MED 1 EA UNK [FLUTICASONE 50MCG NASAL SPRAY] NAS SCH (08:31)
[2022-04-07] MEDS ORDERED: SEVELAMER CARBONATE 0.8 GM PACKET PO SCH (12:00)
--- NOTE | 2022-04-07 12:17 | P.DS ---
Admission Date: 03/17/22 Discharge Date: 04/07/22 Disposition: TRANSFER TO INPATIENT REHAB Discharge Condition: GOOD Reason for Admission: S/p tracheostomy Consultations: 1. Pulmonary Medicine 2. Nephrology 3. Otorhinolaryngology Procedures: 03/21/2022 - Endotracheal Intubation 03/23/2022 - Laryngoscopy with Tracheostomy Hospital Course: DIAGNOSES: # Critical Care Myopathy # Acute Hypercapnic Respiratory Failure - possibly secondary to Posterior Left Supraglottic Soft Tissue Fullness with Vocal Cord Asymmetry s/p Tracheostomy # Acute Pharyngitis possibly secondary to Enterobacter Cloacae # Severe Pulmonary Hypertension # Hypervolemia in End-Stage Renal Disease on MWF iHD # Hyperkalemia # Right Pulmonary Nodule (9 mm) # Suspect Steroid-Induced Leukocytosis # Type II Diabetes Mellitus # Hypothyroidism HOSPITAL COURSE: Mr. Alejandro Dunbar is a pleasant 56 year old male with a past medical history significant for end-stage renal disease on MWF iHD, severe pulmonary hypertension, type 2 diabetes mellitus, and hypothyroidism who was admitted to the [facility] on 03/17/2022 for shortness of breath and cough. He was admitted to the Medicine service. He was initially thought to have viral pharyngitis and flash pulmonary edema, for which he was treated with supportive care and hemodialysis, respectively. On 03/21/2022, he went into acute respiratory distress and required endotracheal intubation. The exact etiology remains unclear, but his significant hypothyroid state is concerning. His C1 esterase inhibitor level returned within normal limits. On 03/23/2022, he underwent laryngoscopy with tracheostomy and he tolerated the procedure well. His hospital course has been complicated by critical care myopathy and he has been working well with physical therapy. Today, he was accepted to [facility] for continued Physical Therapy services. He was counseled on the severity of his hypothyroidism and the need for close outpatient follow-up and medication adjustments. He was also counseled that his elevated TSH may represent an underlying malignancy, for which he was advised to follow-up with his PCP. He verbalized his understanding and agreed to make follow-up appointments. He was also informed about his 9 mm pulmonary nodule and our concern for an underlying pulmonary malignancy. He was also advised to schedule a follow-up with his PCP or with Pulmonology (Dr. Gonzales) regarding this finding for a possible PET scan. He verbalized understanding. On 04/07/2022, he was seen on morning rounds and deemed medically stable for discharge. He was given the opportunity to ask questions and reported no further questions. Furthermore, all questions were answered to the best of my ability. A copy of this discharge summary will be sent to the above providers to facilitate continuity of care. Today, I personally spent 35 minutes on his case, of which greater than 50% of the time was spent in patient education, counseling, and coordination of care as described above. General: Alert and oriented. No distress HEENT: Atraumatic, Sclerae nonicteric Neck: Supple Respiratory: S/P tracheostomy. Diminished, but clear to auscultation bilateral ly. Cardiovascular: No edema, Regular rate/rhythm, Normal S1 S2, No gallops, No rubs, No murmurs Gastrointestinal: Hypoactive, Soft and benign, Non-distended, No tenderness, No rebound, No guarding Musculoskeletal: No clubbing Integumentary: No rashes Neurological: Alert and oriented. No distress. Following commands. Moving all four extremities equally. Vital Signs/Physical Exam: Temp Pulse Resp BP Pulse Ox 99.3 F 77 18 134/75 100 04/07/22 08:00 04/07/22 08:00 04/07/22 08:00 04/07/22 08:00 04/07/22 08:00 Laboratory Data at Discharge: WBC 10.90 K/uL (4.3-10.9) 04/07/22 06:03 Hgb 10.9 g/dL (13.6-17.9) L 04/07/22 06:03 Hct 30.8 % (39.6-49.0) L 04/07/22 06:03 Plt Count 629 K/uL (152-406) H 04/07/22 06:03 PT 10.6 SECONDS (9.5-12.5) 03/17/22 11:35 INR 0.96 03/17/22 11:35 APTT 29.0 SECONDS (24.3-36.9) 03/17/22 11:35 Sodium 132 mmol/L (136-145) L 04/07/22 06:03 Potassium 4.9 mmol/L (3.5-5.1) 04/07/22 06:03 BUN 39 mg/dL (7-18) H 04/07/22 06:03 Creatinine 8.65 mg/dL (0.55-1.3) H* 04/07/22 06:03 Glucose 115 mg/dL (74-106) H 04/07/22 06:03 Phosphorus 3.6 mg/dL (2.5-4.9) 04/07/22 06:03 Magnesium 2.5 mg/dL (1.8-2.4) H 04/07/22 06:03 Total Bilirubin 0.3 mg/dL (0.2-1.0) 04/07/22 06:03 AST 17 U/L (15-37) 04/07/22 06:03 ALT 22 U/L (12-78) 04/07/22 06:03 Alkaline Phosphatase 87 U/L (45-117) 04/07/22 06:03 Home Medications: Albuterol Sulfate [Proair Hfa] 2 puff IH Q4HP PRN 06/25/20 Ergocalciferol (Vitamin D2) [Vitamin D2] 50,000 unit PO SEECOM 06/25/20 Fluticasone [Flonase 50MCG Nasal Novinger*] 1 puff IH DAILY 06/25/20 Hydrocodone/Acetaminophen [Hydrocodone-Acetamin 10-325 mg] 1 tab PO Q6HP PRN 06/25/20 Levothyroxine [Synthroid*] 1 tab PO [id number] 06/25/20 Sevelamer Carbonate 1 tab PO TIDWM 06/25/20 Azithromycin Tab [Zithromax*] 250 mg PO DAILY #5 tab 03/19/22 Cefdinir [Cefdinir*] 300 mg PO BID #14 cap 03/19/22 Guaifenesin [Mucinex] 600 mg PO Q12H PRN #30 tab 03/19/22 predniSONE [Deltasone] 20 mg PO BID #11 tab 03/19/22 Fluticasone/Salmeterol [Advair 250-50 Diskus] 1 each IH BID 30 Days #60 aero 03/20/22 New Medications: Fluticasone/Salmeterol [Advair 250-50 Diskus] 1 each IH BID 30 Days #60 aero Cefdinir [Cefdinir*] 300 mg PO BID #14 cap Guaifenesin [Mucinex] 600 mg PO Q12H PRN #30 tab PRN Reason: Cough predniSONE [Deltasone] 20 mg PO BID #11 tab Azithromycin Tab [Zithromax*] 250 mg PO DAILY #5 tab Physician Discharge Instructions: -DC IV and DC home -Follow-up with PCP in 1 to 2 weeks -Follow-up with Nephrology for HD as scheduled -Follow-up with pulmonary for severe pulmonary hypertension -Please call Dr. Bess at [phone] if any questions regarding hospital stay -Please call nursing station at [phone] if any nursing or medication questions -Return to the emergency room if symptoms worsen Diet: Renal Activity: Fall precautions Followup: Justice Gonzales MD [ACTIVE - CAN ADMIT] - Erwin Arenas [ACTIVE - CAN ADMIT] - Mery Reich DO [ACTIVE - CAN ADMIT] - NONE,NONE [Primary Care Provider] - Grace Branch MD [OUTSIDE PHYSICIAN] - Time spent managing pt's care (in minutes): 35
--- NOTE | 2022-04-07 15:34 | PN ---
Date of Progress Note: 04/07/2022 Subjective: The patient was admitted with laryngitis, has trach. The patient was over volume, dialy zed well, currently normal volume; back to his schedule Wednesday, Wednesday, Wednesday; tolerating dialysi s; last dialysis yesterday. The patient planned for transfer to [facility], waiting for accepta nce. Physical Examination: Vital Signs: Blood pressure 134/75, pulse of 77, afebrile. Chest: Clear to auscultation. Heart: S1-S2 regular. Abdomen: Soft, nontender. Extremities: No edema. Neurologic: Alert and oriented x3. On the neck has a tracheostomy with T collar. Laboratory Data: Hemoglobin 10.9. Sodium 132, potassium 4.9, bicarb 29, BUN 39, creatinine 8.6, benjy cium 8.4, phosphorus 3.6, magnesium 2.5, albumin of 3. Current Medications: The patient on include aspirin, ciprofloxacin 500 daily, Epogen, heparin, atorv astatin, hydralazine, gabapentin 100 b.i.d., Renvela 1600 with each meal, Zofran. Assessment And Plan: 1.End-stage renal disease. Used to be over volume, currently normal volume. We will continue dialy sis Wednesday, Wednesday, Wednesday. 2.Hyponatremia, will be corrected with dialysis. 3.Secondary hyperparathyroidism, phosphorous normalized. I have decreased the Renvela to 800 mg inderjit ly. 4.Over volume, currently normal volume back to dialysis 3 times a week. 5.Hypertension, controlled, optimal. Continue current medication. 6.Anemia of chronic kidney disease. Continue SUMIT. 7.Laryngitis, status post tracheostomy. We will follow up. Continue rehab. 8.Deconditioning. Continue PT/OT. STEPH/CASSIE Voice ID: [id number] Report ID: [id number]
[2022-04-07 16:23] VITALS: O2SAT 96
[2022-04-07 16:25] VITALS: BP 125/71; TEMP 97.5
[2022-04-07] MEDS ORDERED: GABAPENTIN 100 MG CAP PO SCH (21:00)
--- NOTE | 2022-04-08 01:59 | P.PN ---
Date of Service: 03/19/22 Subjective Patient states that his voice is not the same as it used to be. We will go ahead and cancel his discharge. Will go ahead and do a CT of the chest & the CT of the neck. Physical Examination - Vital Signs Reviewed - Physical Exam General: Alert and oriented. No distress Neck: LAD Respiratory: Clear to auscultation bilaterally, end expiratory wheezing Cardiovascular: Regular rate/rhythm, Normal S1 S2, Gastrointestinal: Soft ND, NT, No rebound, No guarding Neurological: Alert and oriented. No focal deficits Assessment And Plan - Assessment # Hypervolemia in End-Stage Renal Disease on MWF iHD # Hyperkalemia # Right Pulmonary Nodule (9 mm) # Suspect Steroid-Induced Leukocytosis # Type II Diabetes Mellitus # Hypothyroidism # Dysarthria - Plan Continue with plan of care as mentioned below: - Plan to do CT of the chest and the neck. holding discharge at this time - Patient may need ENT consultation - Continue with antibiotics - Continue with hemodialysis per nephrology
== END 2022-04-07 17:11 | DRG 4 ==
LOC: ER 10:16 → ERHOLD 14:15 → 4TH 23:32 → OBSVTOIN 03-19 17:41 → 3RD-ICU 03-21 04:15 → 2ND 03-31 18:30
PROVIDERS: ADMIT Hospitalist; ATTEND Internal Medicine
PROC: 5A1D70Z Performance of Urinary Filtration, Intermittent, Less than 6 Hours Per Day (ICD-10-PCS; 2022-03-18)
PROC: 5A1D70Z Performance of Urinary Filtration, Intermittent, Less than 6 Hours Per Day (ICD-10-PCS; 2022-03-19)
PROC: 5A1D70Z Performance of Urinary Filtration, Intermittent, Less than 6 Hours Per Day (ICD-10-PCS; 2022-03-20)
PROC: 0BH18EZ Insertion of Endotracheal Airway into Trachea, Via Natural or Artificial Opening Endoscopic (ICD-10-PCS; principal; 2022-03-21)
PROC: 5A1945Z Respiratory Ventilation, 24-96 Consecutive Hours (ICD-10-PCS; 2022-03-21)
PROC: 5A1D70Z Performance of Urinary Filtration, Intermittent, Less than 6 Hours Per Day (ICD-10-PCS; 2022-03-22)
PROC: 0CJS8ZZ Inspection of Larynx, Via Natural or Artificial Opening Endoscopic (ICD-10-PCS; 2022-03-23)
PROC: 5A1D70Z Performance of Urinary Filtration, Intermittent, Less than 6 Hours Per Day (ICD-10-PCS; 2022-03-23)
PROC: 0B113F4 Bypass Trachea to Cutaneous with Tracheostomy Device, Percutaneous Approach (ICD-10-PCS; 2022-03-23 07:00)
PROC: 5A1D70Z Performance of Urinary Filtration, Intermittent, Less than 6 Hours Per Day (ICD-10-PCS; 2022-03-25)
PROC: 5A1D70Z Performance of Urinary Filtration, Intermittent, Less than 6 Hours Per Day (ICD-10-PCS; 2022-03-28)
PROC: 5A1D70Z Performance of Urinary Filtration, Intermittent, Less than 6 Hours Per Day (ICD-10-PCS; 2022-03-30)
PROC: 5A1D70Z Performance of Urinary Filtration, Intermittent, Less than 6 Hours Per Day (ICD-10-PCS; 2022-04-01)
PROC: 5A1D70Z Performance of Urinary Filtration, Intermittent, Less than 6 Hours Per Day (ICD-10-PCS; 2022-04-03)
PROC: 5A1D70Z Performance of Urinary Filtration, Intermittent, Less than 6 Hours Per Day (ICD-10-PCS; 2022-04-06)
DX: J96.02 Acute respiratory failure with hypercapnia (principal); J18.9 Pneumonia, unspecified organism; J81.0 Acute pulmonary edema; N18.6 End stage renal disease; I13.2 Hypertensive heart and chronic kidney disease with heart failure and with stage 5 chronic kidney disease, or end stage renal disease; E87.1 Hypo-osmolality and hyponatremia; G72.81 Critical illness myopathy; N25.81 Secondary hyperparathyroidism of renal origin; R91.1 Solitary pulmonary nodule; J04.0 Acute laryngitis; J02.9 Acute pharyngitis, unspecified; E87.70 Fluid overload, unspecified; E87.5 Hyperkalemia; R47.1 Dysarthria and anarthria; J02.8 Acute pharyngitis due to other specified organisms; I27.20 Pulmonary hypertension, unspecified; I50.9 Heart failure, unspecified; I25.10 Atherosclerotic heart disease of native coronary artery without angina pectoris; E11.40 Type 2 diabetes mellitus with diabetic neuropathy, unspecified; D63.1 Anemia in chronic kidney disease; E11.22 Type 2 diabetes mellitus with diabetic chronic kidney disease; E78.5 Hyperlipidemia, unspecified; E03.9 Hypothyroidism, unspecified; N25.0 Renal osteodystrophy; E66.9 Obesity, unspecified; F17.200 Nicotine dependence, unspecified, uncomplicated; Z99.2 Dependence on renal dialysis; Z68.28 Body mass index [BMI] 28.0-28.9, adult; Z20.822 Contact with and (suspected) exposure to COVID-19; Z78.1 Physical restraint status
CPT/HCPCS: 0241U; 36415; 70491; 71045; 71260; 74018; 74230; 80048; 80053; 80069; 82164; 82805; 82947; 83735; 83880; 84100; 84145; 84439; 84443; 84481; 84484; 85025; 85610; 85730; 86161; 86704; 86706; 87040; 87070; 87077; 87186; 87205; 87340; 90935; 92526; 92611; 93005; 93306; 94002; 94003; 94640; 96374; 96375; 97110; 97116; 97161; 97530; 99285; A4216; G0378; J0295; J0360; J1100; J1630; J1644; J1815; J2250; J2270; J2370; J2405; J2704; J2930; J3010; J7030; J7040; J7613; J7614; Q5105; Q9967

== ENCOUNTER 2022-05-11 00:35 | Inpatient (IN) | payer OTHER ==
--- OUTSIDE RECORDS SUMMARY | 2022-05-11 01:01 | XMS REPORT | Continuity of Care Document ---
:1965 Author Organization [facility] t Address [address] [place] [address] Care Team Providers Name Role Phone Asked, No Pcp Primary Care Physician Unavailable [id number] Attending Clinician Unavailable IRMA NICHOLSON Attending Clinician Unavailable SYLVAIN OLIVARES Attending Clinician Unavailable JOSELUIS FERNANDEZ Attending Clinician Unavailable JACINTO SIMPSON Attending Clinician Unavailable Stephani Mcginnis Anavella Attending Clinician UnaMami Romo RN Attending Clinician Unavailable Joseluis Fernandez MD Attending Clinician Lab, Ang - Db Attending Clinician Unavailable Radiology Attending Clinician Unavailable RADIOLOGY Attending Clinician Unavailable Shantel Ko RN Attending Clinician Unavailable Doctor Unassigned, Gonzalez Attending Clinician Unavailable SAM RAMIRES Attending Clinician Unavailable Sam Ramires MD Attending Clinician DEAN GARCIA Attending Clinician Unavailable Dean Garcia MD Attending Clinician MARCUS CABALLERO Attending Clinician Unavailable HUNTER GIPSON Attending Clinician Unavailable [id number] Admitting Clinician Unavailable IRMA NICHOLSON Admitting Clinician Unavailable SYLVAIN OLIVARES Admitting Clinician Unavailable Leo Mcginnis Anav Admitting Clinician Unavailable Payers Payer Name Policy Type Policy Number Effective Date Expiration Date [facility] MEDICARE A B [id number] 2018 00:00:00 CDC REVIEW [id number] 2019 00:00:00 MEDICAID OF [place] [id number] 2019 00:00:00 [place] [id number] 2021 DUAL COMPLETE HMO 00:00:00 [place] [id number] 2019 00:00:00 [facility] [id number] MEDICARE PART A \T\ [id number] 2018 B 00:00:00 Problems Condition Condition Condition [...] stage (end stage renal renal disease) disease) Hypothyroi Hypothyroi Disease Active C [facility] [...] Center Type 2 Type 2 Disease Active [facility] diabetes diabetes 1-21 [facility] mellitus mellitus 00:00: Medica l with with 00 Center chronic chronic kidney kidney disease on disease on chronic chronic dialysis, dialysis, without without long-term long-term current current use of use of insulin insulin Dizziness Dizziness Disease Active Uni vers 9-10 ity of 00:00: [place] [id number] [facility] Pre-syncop Pre-syncop Disease Active U nivers e e 9-08 ity of 00:00: [place] [id number] [facility] Branch Elevated Elevated Disease Active 2017-05 Unive rs troponin I troponin I 05-04 it y of level level 00:00: [place] [facility] Elevated Elevated Disease Active 2017-05 Unive rs brain brain 05-04 ity of natriure[place] peptide c peptide 00 Medi benjy (BNP) (BNP) Branch level level Essential Essential Disease Active 2017-05 Uni vers hypertensi hypertensi 05-04 it y of on on 00:00: [place] [id number] [facility] Branch Dyslipidem Dyslipidem Disease Active 2017-05 U nivers ia ia 05-04 ity of 00:00: [place] [id number] Medical Branch Hypocalcem Hypocalcem Disease Active 2017-05 U nivers ia ia 05-03 ity of 00:00: [address] Branch ESRD (end ESRD (end Disease Active Overview: [facility] disease) disease) note l on on might be dialysis dialysis different from the original. 06/2018 Allergies, Adverse Reactions, Alerts Allergy Allergy Status Severity Reaction(s) Onset Inactive Treating Comm ents Source Name Type Date Date Clinician NKA Allergy Active 2021-05 ENCCLR 2-20 13:07: 28 NKA Allergy Active 2021-05 ENCCLR 2-20 13:07: 28 NKA Allergy Active 2021-05 ENCCLR 2-20 13:07: 28 NKA Allergy Active 2021-05 ENCCLR 2-20 13:07: 28 n Propensi Active ty to 11-06 adverse 00:00: reaction 00 to drug NO KNOWN Allergy Active [facility] Family History Family Member Diagnosis Comments Start Date Stop Date Source Natural brother No Known Problem [facility] Natural father Alcohol abuse [facility] Natural mother No Known Problem [facility] Natural sister Diabetes [facility] Natural sister Kidney disease [facility] Natural sister No Known Problem [facility] Social History Social Habit Start Date Stop Date Quantity Comments Source History SDWA [facility] St[facility] Dr[facility] Hospit al History [facility] Alcohol Comment Medical C enter History of tobacco Smoker [facility] use Medical Center Exposure to 2021-11-22 2021-12-02 Not sure [facility] SARS-CoV-2 (event) 00:00:00 14:04:00 [facility] Cigarettes smoked 2019-04-20 2019-04-[address] [facility] current (pack per 00:00:00 00:00:00 Medical Center day) - Reported Cigarette 2019-04-20 2019-04-[address] [facility] pack-years 00:00:00 00:00:00 [facility] Tobacco use and 2019-04-20 2019-04-[address] [facility] k[facility] exposure 00:00:00 00:00:00 [facility] Alcohol intake 2019-01-06 2019-01-06 Lifetime Taoist 00:00:00 00:00:00 non-drinker Hospital (finding) History SDOH 2019-01-05 2019-01-05 1 [facility] Alcohol Frequency 00:00:00 00:00:00 Hospita l Sex [birth year] At [birth year] [facility] 00:00:00 00:00:00 Hospital Smoking Status Start Date Stop Date Source Ex-smoker 2018-03-03 00:00:00 2018-03-03 00:00:00 [facility] Medications Ordered Filled Start Stop Current Ordering Indication Dosage Frequency Signature Comments Components Source Medication Medication Date Date Medication? Clinician (SIG) Name Name Dose 2021-05 No Unknown 2-14 00:00: 00 LATANOPROST 2021-05 No 0.005 % 2-14 SOLN 00:00: 00 Dose 2021-05 No Unknown 2-14 00:00: 00 Dose 2021-05 No Unknown 2-14 00:00: 00 Dose 2021-05 No Unknown 2-14 00:00: 00 LATANOPROST 2021-05 No 0.005 % 2-14 SOLN 00:00: 00 Dose 2021-05 No Unknown 2-14 00:00: 00 Dose 2021-05 No Unknown 2-14 00:00: 00 TAKE 1 2021-05 No CAPSULE 3 2-13 TIMES DAILY 00:00: NEEDED. 00 TAKE 1 2021-05 No TABLET BY 2-13 MOUTH EVERY 00:00: DAY FOR 10 DAYS TAKE 1 2021-05 No CAPSULE BY 2-13 MOUTH EVERY 00:00: DAY 00 Dose 2021-05 No Unknown 2-13 00:00: 00 Dose 2021-05 No Unknown 2-13 00:00: 00 Dose 2021-05 No Unknown 2-13 00:00: 00 Dose 2021-05 No Unknown 2-13 00:00: 00 Dose 2021-05 No Unknown 2-13 00:00: 00 Dose 2021-05 No Unknown 2-13 00:00: 00 Dose 2021-05 No Unknown 2-13 00:00: 00 TAKE 1 2021-05 No CAPSULE 3 2-13 TIMES DAILY 00:00: NEEDED. 00 TAKE 1 2021-05 No TABLET BY 2-13 MOUTH EVERY 00:00: DAY FOR DAYS TAKE 1 2021-05 No CAPSULE BY 2-13 MOUTH EVERY 00:00: DAY 00 Dose 2021-05 No Unknown 2-13 00:00: 00 Dose 2021-05 No Unknown 2-13 00:00: 00 Dose 2021-05 No Unknown 2-13 00:00: 00 Dose 2021-05 No Unknown 2-13 00:00: 00 Dose 2021-05 No Unknown 2-13 00:00: 00 Dose 2021-05 No Unknown 2-13 00:00: 00 Dose 2021-05 No Unknown 2-13 00:00: 00 levothyroxi 2021-0 Yes [id number] 224ug Take 2 Univers ne 112 mcg 8-23 tablets by ity of tablet 00:00: mouth [place] 00 every Medical morning. Branch INSTILL 1 0 No DROP INTO 8-10 BOTH EYES 00:00: EVERY 00 MORNING &lt 2021-0 No 800 8-10 00:00: 00 &lt 2021-0 No 50 8-10 00:00: 00 Dose 2021-0 No 75 Unknown 8-10 00:00: 00 &lt 2021-0 No 500 8-10 00:00: 00 &lt 2022-0 [...] &lt 2022-0 No 800 8-10 00:00: 00 Dose 2022-0 No Unknown 8-10 00:00: 00 Dose 2022-0 No Unknown 8-10 00:00: 00 Dose 2022-0 No Unknown 8-10 00:00: 00 Dose 2022-0 No Unknown 8-10 00:00: 00 Dose 2022-0 No Unknown 8-10 00:00: 00 TAKE 1 2022-0 No 80 TABLET AT 8-10 BEDTIME. 00:00: 00 INSTILL 1 2022-0 No DROP INTO 8-10 BOTH EYES 00:00: EVERY 00 MORNING &lt 2022-0 No 800 8-10 00:00: 00 Dose 2022-0 No Unknown 8-10 00:00: 00 Dose 2022-0 No Unknown 8-10 00:00: 00 Dose 2022-0 No Unknown 8-10 00:00: 00 Dose 2022-0 No Unknown 8-10 00:00: 00 Dose 2022-0 No Unknown 8-10 00:00: 00 TAKE 1 2022-0 [...] AT 8-10 BEDTIME. 00:00: 00 INSTILL 1 2-0 No DROP INTO 8-10 BOTH EYES 00:00: [...] 8-08 00:00: 00 &lt 2022-0 No 80 8-08 00:00: 00 Dose 2022-0 No Unknown 8 00:00: 00 &lt 2022-0 No 8- 00:00: 00 &lt 2022-0 No 80 8- 00:00: 00 Dose 2022-0 No Unknown 8 00:00: 00 &lt 2022-0 No 8-08 00:00: 00 &lt 2022-0 No 80 8- 00:00: 00 Dose 2022-0 No Unknown 8-08 00:00: 00 Dose 2022-0 No Unknown 8-08 00:00: 00 ATORVASTATI 2022-0 No N CALCIUM 8-08 80 MG TABS 00:00: 00 Dose 2022-0 No Unknown 8-08 00:00: 00 Dose 2022-0 No Unknown 8-08 00:00: 00 ATORVASTATI 2022-0 No N CALCIUM 8-08 80 MG TABS 00:00: 00 Dose 2022-0 No Unknown 8-08 00:00: 00 &lt 2022-0 No 8-08 00:00: 00 &lt 2022-0 No 80 8-08 00:00: 00 Dose 2022-0 No Unknown 8-08 00:00: 00 &lt 2022-0 No 8-08 00:00: 00 &lt 2022-0 No 80 8-08 00:00: 00 Dose 2022-0 No Unknown 8-08 00:00: 00 TAKE 1 2021-0 No 2 TABLET 8-05 EVERY 6 00:00: HOURS BY 00 ORAL ROUTE NEEDED FOR 7 DAYS. &lt 2-0 No 8-05 00:00: 00 INSTILL 1 2021-0 No DROP IN 8-05 BOTH EYES 00:00: EVERY DAY 00 TAKE 1 2021-0 No 2 TABLET 8-05 EVERY 6 00:00: HOURS BY 00 ORAL ROUTE NEEDED FOR 7 DAYS. &lt 2-0 No 8-05 00:00: 00 INSTILL 1 2021-0 No DROP IN 8-05 BOTH EYES 00:00: EVERY DAY 00 TAKE 1 2021-0 No 2 TABLET 8-05 EVERY 6 00:00: [...] EVERY DAY 00 TAKE 1 2-0 No TABLET 8-05 EVERY 6 00:00: HOURS BY 00 ORAL ROUTE NEEDED FOR 7 DAYS. TIMOLOL 2022-0 No MALEATE 8-05 0.25 % SOLN 00:00: 00 INSTILL 1 2-0 No DROP IN 8-05 BOTH EYES 00:00: EVERY DAY 00 TAKE 1 2022-0 No TABLET 8-05 EVERY 6 00:00: HOURS BY 00 ORAL ROUTE NEEDED FOR 7 DAYS. TIMOLOL 2022-0 No MALEATE 8-05 0.25 % SOLN 00:00: 00 INSTILL 1 2022-0 No DROP IN 8-05 BOTH EYES 00:00: [...] No 25 7-26 00:00: 00 TAKE 1 2022-0 No 2 TABLET 7-26 EVERY 6 00:00: HOURS BY 00 ORAL ROUTE NEEDED FOR 7 DAYS. Dose 2022-0 No Unknown 7- 00:00: 00 &lt 2022-0 No 25 7-26 00:00: 00 TAKE 1 2022-0 No 2 [...] 00 TAKE 1 2022-0 No 2 TABLET 11-25 EVERY 6 00:00: HOURS BY 00 ORAL ROUTE NEEDED FOR 7 DAYS. Dose 2022-0 No Unknown 11-25 00:00: 00 &lt 2022-0 No 25 11-25 00:00: 00 TAKE 1 2022-0 No 2 TABLET 11-25 EVERY 6 00:00: HOURS BY 00 ORAL ROUTE NEEDED FOR 7 DAYS. Dose 2022-0 No Unknown 11-25 00:00: 00 &lt 2022-0 No 25 11-25 00:00: 00 TAKE 1 2022-0 No 2 TABLET 11-25 EVERY 6 00:00: [...] No 10 7- 00:00: 00 INSTILL 1 2022-0 No DROP [...] 75 Unknown 11-24 00:00: 00 TAKE 1 2-0 No 300 CAPSULE BY 7-25 MOUTH EVERY 00:00: DAY 00 &lt 2022-0 No 10 7- 00:00: 00 INSTILL 1 2-0 No DROP INTO 7-25 BOTH EYES 00:00: EVERY 00 MORNING &lt 2022-0 No 800 7 00:00: 00 Dose 2022-0 No 75 Unknown [...] 75 Unknown 11-24 00:00: 00 TAKE 1 2-0 No 300 CAPSULE BY 7-25 MOUTH EVERY 00:00: DAY 00 &lt 2022-0 No 10 7 00:00: 00 INSTILL 1 2021-0 No DROP INTO 7-25 BOTH EYES 00:00: EVERY 00 MORNING &lt 2022-0 No 800 7- 00:00: 00 Dose 2022-0 No 75 Unknown 11-24 00:00: 00 TAKE 1 2-0 No 300 [...] &lt 2022-0 No 10 11-24 00:00: 00 &lt 2022-0 No 10 11-21 00:00: 00 INSTILL 1 2021-0 No DROP IN 7 BOTH EYES 00:00: EVERY DAY 00 &lt 2022-0 No 500 11-21 00:00: 00 Dose 2022-0 No 80 Unknown 11-21 00:00: 00 &lt 2022-0 No 7 00:00: 00 &lt 2022-0 No 10 11-21 00:00: 00 INSTILL 1 2021-0 No DROP IN - BOTH EYES 00:00: EVERY DAY 00 &lt 2022-0 No 10 11-21 00:00: 00 INSTILL 1 2021-0 No DROP IN 11-21 BOTH EYES 00:00: EVERY DAY 00 &lt 2022-0 No 500 11-21 00:00: 00 Dose 2022-0 No 80 Unknown 11-21 00:00: 00 &lt 2022-0 No 7 00:00: 00 &lt 2022-0 No 500 11-21 00:00: 00 Dose 2022-0 No 80 Unknown 11-21 00:00: 00 &lt 2022-0 No 11-21 00:00: 00 &lt 2022-0 No 10 11-21 00:00: 00 INSTILL 1 2021-0 No DROP IN - BOTH EYES 00:00: EVERY DAY 00 &lt [...] Unknown 11-21 00:00: 00 &lt 2022-0 No 7-22 00:00: 00 &lt 2022-0 No 10 7- 00:00: 00 INSTILL 1 2-0 No DROP IN 7-22 BOTH EYES 00:00: EVERY DAY 00 &lt 2022-0 No 500 7- 00:00: 00 Dose 2022-0 No 80 Unknown 7 00:00: 00 &lt 2022-0 No 7- 00:00: 00 &lt 2022-0 No 10 7- 00:00: 00 INSTILL 1 2-0 No DROP IN 7-22 BOTH EYES 00:00: EVERY DAY 00 &lt 2022-0 No 500 7- 00:00: 00 Dose 2022-0 No 80 Unknown 11-21 00:00: 00 &lt 2022-0 No 7- 00:00: 00 &lt 2022-0 No 10 7- 00:00: 00 INSTILL 1 2-0 No DROP IN 7-22 BOTH EYES 00:00: EVERY DAY 00 &lt 2022-0 No 500 11-21 00:00: 00 Dose 2022-0 No 80 Unknown 11-21 00:00: 00 &lt 2022-0 No 7- 00:00: 00 &lt 2022-0 No 10 7- 00:00: 00 &lt 2022-0 No 10 7- 00:00: 00 &lt 2022-0 No 10 7- 00:00: 00 &lt 2022-0 No 10 7- 00:00: 00 &lt 2022-0 No 10 7-21 00:00: 00 &lt 2022-0 No 10 7-21 00:00: 00 &lt 2022-0 No 10 7-21 00:00: 00 &lt 2022-0 No 10 7-21 00:00: 00 INSTILL 1 2022-0 No DROP IN 7-20 BOTH EYES 00:00: EVERY DAY 00 INSTILL 1 2022-0 No DROP IN 7-20 BOTH EYES 00:00: EVERY DAY 00 INSTILL 1 2022-0 No DROP IN 7-20 BOTH EYES 00:00: EVERY DAY 00 INSTILL 1 2022-0 No DROP IN 7-20 BOTH EYES 00:00: EVERY DAY 00 INSTILL 1 2022-0 No DROP IN 7-20 BOTH EYES 00:00: EVERY DAY 00 INSTILL 1 2022-0 No DROP IN 7-20 BOTH EYES 00:00: EVERY DAY 00 INSTILL 1 2022-0 No DROP IN 7-20 BOTH EYES 00:00: EVERY DAY 00 INSTILL 1 2022-0 No DROP IN 7-20 BOTH EYES 00:00: [...] No 80 7-19 00:00: 00 TAKE 1 2022-0 No 5 TABLET BY 7-07 MOUTH EVERY 00:00: DAY 00 Dose 2022-0 No 75 Unknown 11-06 00:00: 00 TAKE 1 2022-0 No 5 TABLET BY 7-07 MOUTH EVERY 00:00: DAY 00 Dose 2022-0 No 75 Unknown 11-06 00:00: 00 TAKE 1 2022-0 No 5 TABLET BY - MOUTH EVERY 00:00: DAY 00 Dose 2022-0 No 75 Unknown 11-06 00:00: 00 TAKE 1 2022-0 No 5 TABLET BY - MOUTH EVERY 00:00: DAY 00 Dose 2022-0 No 75 Unknown 11-06 00:00: 00 TAKE 1 2022-0 No 5 TABLET BY 11-06 MOUTH EVERY 00:00: DAY 00 Dose 2022-0 No 75 Unknown 11-06 00:00: 00 TAKE 1 2022-0 No 5 TABLET BY - MOUTH EVERY 00:00: DAY 00 Dose 2022-0 No 75 Unknown 11-06 00:00: 00 TAKE 1 2022-0 No 5 TABLET BY - MOUTH EVERY 00:00: DAY 00 Dose 2022-0 No 75 Unknown 11-06 00:00: 00 TAKE 1 2022-0 No 5 TABLET BY 11-06 MOUTH EVERY [...] 2022-0 No 6-21 00:00: 00 Januvia 25 2022-0 No 1mg mg tablet 08-07 00:00: 00 amlodipine 2022-0 No 1mg 10 mg 4-07 tablet 00:00: 00 atorvastati 2022-0 No 1mg n 80 mg 4-07 tablet 00:00: 00 Januvia 25 2-0 No 1mg mg tablet 4-07 00:00: 00 amlodipine 2022-0 No 1mg 10 mg 4-07 tablet 00:00: 00 atorvastati 2022-0 No 1mg n 80 mg 4-07 tablet 00:00: 00 Januvia 25 2-0 No 1mg mg tablet 4-07 00:00: 00 amlodipine 2022-0 No 1mg 10 mg 4-07 tablet 00:00: 00 atorvastati 2022-0 No 1mg n 80 mg 4-07 tablet 00:00: 00 Januvia 25 2-0 No 1mg mg tablet 4-07 00:00: 00 amlodipine 2022-0 No 1mg 10 mg 4-07 tablet 00:00: 00 atorvastati 2022-0 No 1mg n 80 mg 4-07 tablet 00:00: 00 atorvastati 2022-0 No 1mg n 80 mg 4-07 tablet 00:00: 00 Dose 2022-0 No Unknown 4-07 00:00: 00 Dose 2022-0 No Unknown 4-07 00:00: 00 atorvastati 2022-0 No 1mg n 80 mg 4-07 tablet 00:00: 00 Dose 2022-0 No Unknown 4-07 00:00: 00 Dose 2022-0 No Unknown 4-07 00:00: 00 Januvia 25 2-0 No 1mg mg tablet 4-07 00:00: 00 amlodipine 2022-0 No 1mg 10 mg 4-07 tablet 00:00: 00 atorvastati 2022-0 No 1mg n 80 mg 4-07 tablet 00:00: 00 Januvia 25 2-0 No 1mg mg tablet 4-07 00:00: 00 amlodipine 2022-0 No 1mg 10 mg 4-07 tablet 00:00: 00 atorvastati 2022-0 No 1mg n 80 mg 4-07 tablet 00:00: 00 Bromfed DM 2022-0 No [...] oral 00 syrup Dose 2022-0 No Unknown 3-31 00:00: 00 Dose 2022-0 No Unknown 3-31 00:00: 00 Bromfed DM 2022-0 No 5mg/5 2 mg-30 3-31 mL mg-10 mg/5 00:00: mL oral 00 syrup Bromfed DM 2-0 No 5mg/5 2 mg-30 [...] 00 every Medical morning. Branch levothyroxi 2021-0 2- No 1{tbl} Take 1 U nivers ne 200 mcg 3-03 08-23 tablet by ity of tablet 00:00: 00:00 mouth [place] 00 :00 every Medical morning. Branch Januvia 25 2021-0 No 1mg mg tablet 2-04 00:00: 00 Dose 2-0 No Unknown 2-04 00:00: 00 Dose 2-0 No Unknown 2-04 00:00: 00 Januvia 25 2-0 No 1mg mg tablet 2-04 00:00: 00 Dose 2022-0 No Unknown 2-04 00:00: 00 Dose 2-0 No Unknown 2-04 00:00: 00 Januvia 25 2021-0 No 1mg mg tablet 2-04 00:00: 00 Dose 2022-0 No Unknown 2-04 00:00: 00 Dose 2022-0 No Unknown 2-04 00:00: 00 Dose 2-0 No Unknown 2-04 00:00: 00 Dose 2022-0 No Unknown 2-04 00:00: 00 Dose 2022-0 No Unknown 2-04 00:00: 00 Dose 2022-0 No Unknown 2-04 00:00: 00 Dose 2022-0 No Unknown 2-04 00:00: 00 Dose 2022-0 No Unknown 2-04 00:00: 00 Januvia 25 2021-0 No 1mg mg tablet 2-04 00:00: 00 Dose 2-0 No Unknown 2-04 00:00: 00 Dose 2-0 No Unknown 2-04 00:00: 00 Januvia 25 2021-0 No 1mg mg tablet 2-04 00:00: 00 Dose 2-0 No Unknown 2-04 00:00: 00 Dose 2-0 No Unknown 2-04 00:00: 00 Januvia 25 2021-0 No 1mg mg tablet 2-04 00:00: 00 levothyroxi 2021-0 No 1mcg ne 200 mcg 2-04 tablet 00:00: 00 levothyroxi 2021-0 No 1mcg ne 25 mcg 2-04 tablet 00:00: 00 UNITHROID 2021-0 Yes 1{tbl} Take 1 Univ ers 25 mcg 2-04 tablet by ity of tablet 00:00: mouth [place] 00 every Medical morning. Branch UNITHROID 2021-0 2021- No 1{tbl} Take 1 Uni vers 25 mcg 2-04 08-23 tablet by ity of tablet 00:00: 00:00 mouth [place] 00 :00 every Medical morning. [place] lisinopriL 0 Yes 5mg Take 5 mg Un capri 5 mg tablet 1-07 by mouth ity of 00:00: daily. [address] lisinopriL 0 Yes 5mg Take 5 mg Un capri 5 mg tablet 1-07 by mouth ity of 00:00: daily. [address] amlodipine 2020-1 No 1mg 10 mg 2-30 tablet 00:00: 00 amlodipine 2020-1 No 1mg 10 mg 2-30 tablet 00:00: 00 amlodipine 2020-1 No 1mg 10 mg 2-30 tablet 00:00: 00 Dose 2020-1 No Unknown 2-30 00:00: 00 Dose 2020-1 No Unknown 2-30 00:00: 00 amlodipine 2020-1 No 1mg 10 mg 2-30 tablet 00:00: 00 amlodipine 2020-1 No 1mg 10 mg 2-30 tablet 00:00: 00 amlodipine 2020-1 No 1mg 10 mg 2-30 tablet 00:00: 00 lidocaine 4 2020-05 No 1% % topical 2-02 cream 00:00: 00 cyclobenzap 2020- No 1mg rine 10 mg 2-02 tablet 00:00: 00 lidocaine 4 2020-1 No 1% % topical 2-02 cream 00:00: 00 cyclobenzap 2020- No 1mg rine 10 mg 2-02 tablet 00:00: 00 lidocaine 4 2020-1 No 1% % topical 2-02 cream 00:00: 00 cyclobenzap 2020- No 1mg rine 10 mg 2-02 tablet 00:00: 00 Dose 2020-1 No Unknown 2-02 00:00: 00 Dose 2020-1 No Unknown 2-02 00:00: 00 Dose 2020-1 No Unknown 2-02 00:00: 00 Dose 2020-1 No Unknown 2-02 00:00: 00 lidocaine 4 2020-1 No 1% % topical 2-02 cream 00:00: 00 cyclobenzap 2020-05 No 1mg rine 10 mg 2-02 tablet 00:00: 00 lidocaine 4 2020- No 1% % topical 2-02 cream 00:00: 00 cyclobenzap 2020- No 1mg rine 10 mg 2-02 tablet 00:00: 00 lidocaine 4 2020-1 No 1% % topical 2-02 cream 00:00: 00 cyclobenzap 2020-1 No 1mg rine 10 mg 2-02 tablet 00:00: 00 benzonatate 2020-1 No 1mg 200 mg 1-09 capsule 00:00: 00 benzonatate 2020-1 No 1mg 200 mg 1-09 capsule 00:00: 00 benzonatate 2020-1 No 1mg 200 mg 1-09 capsule 00:00: 00 TAKE 1 2020-1 No CAPSULE 3 1-09 TIMES DAILY 00:00: NEEDED. 00 TAKE 1 2020-1 No CAPSULE 3 1-09 TIMES DAILY 00:00: NEEDED. 00 benzonatate 2020-1 No 1mg 200 mg 1-09 capsule 00:00: 00 benzonatate 2020-1 No 1mg 200 mg 1-09 capsule 00:00: 00 benzonatate 2020-1 No 1mg 200 [...] 1mg 10 mg 9-29 tablet 00:00: 00 Dose 2021-0 No Unknown 9-29 00:00: 00 amlodipine 2021-0 No 1mg 10 mg 9-29 tablet 00:00: 00 Dose 2021-0 No Unknown 9-29 00:00: 00 amlodipine 2021-0 No 1mg 10 [...] rine 10 mg 9-15 tablet 00:00: 00 Dose 2021-0 No Unknown 9-15 00:00: 00 Dose 2021-0 No Unknown 9-15 00:00: 00 cyclobenzap 2021-0 No 1mg rine [...] lized 145 00:00: mg tablet 00 amlodipine 1-0 No 1mg 10 mg 6-07 tablet 00:00: 00 sevelamer 2021-0 No 1mg carbonate 6-07 800 mg 00:00: tablet 00 Dose 1-0 No Unknown 6-07 00:00: 00 fenofibrate 2021-0 No 1mg nanocrystal 6-07 lized 145 00:00: mg tablet 00 amlodipine 1-0 No 1mg 10 mg 6-07 tablet 00:00: 00 sevelamer 2021-0 No 1mg carbonate 6-07 800 mg 00:00: tablet 00 Dose 1-0 No Unknown 6-07 00:00: 00 fenofibrate 2021-0 No 1mg nanocrystal 6-07 lized 145 00:00: mg tablet 00 amlodipine 1-0 No 1mg 10 mg 6-07 tablet 00:00: 00 sevelamer 2021-0 No 1mg carbonate 6-07 800 mg 00:00: tablet 00 Dose 2021-0 No Unknown 6-07 00:00: 00 fenofibrate 2021-0 No 1mg nanocrystal 6-07 lized 145 00:00: mg tablet 00 Dose 1-0 No Unknown 6- 00:00: 00 Dose 2021-0 No Unknown 6- 00:00: 00 Dose 2021-0 No Unknown 6-07 00:00: 00 fenofibrate 2021-0 No 1mg nanocrystal 6-07 lized 145 00:00: mg tablet 00 Dose 1-0 No Unknown 6-07 00:00: 00 Dose 2021-0 No Unknown 6-07 00:00: 00 Dose 2021-0 No Unknown 6-07 00:00: [...] lized 145 00:00: mg tablet 00 amlodipine 1-0 No 1mg 10 mg 6-07 tablet 00:00: 00 sevelamer 2021-0 No 1mg carbonate 6-07 800 mg 00:00: tablet 00 levothyroxi 1-0 No 1mcg ne 200 mcg 6-07 tablet 00:00: 00 sevelamer 2021-0 No 1mg carbonate 4-13 800 mg 00:00: tablet 00 hydroxyzine 1-0 No 1mg HCl 25 mg 4-13 tablet [...] carbonate 4-13 800 mg 00:00: tablet 00 levothyroxi 2021-0 No 1mcg ne 200 mcg 4-13 tablet 00:00: 00 Dose 2021-0 No Unknown 4-13 00:00: 00 sevelamer 2021-0 No 1mg carbonate 4-13 800 mg 00:00: tablet 00 levothyroxi 2021-0 No 1mcg ne 200 mcg 4-13 tablet 00:00: 00 Dose 2021-0 No Unknown 4-13 00:00: 00 sevelamer 2021-0 No 1mg carbonate [...] 10 mg 1-26 tablet 00:00: 00 amlodipine 2021-0 No 1mg 10 mg 1-26 tablet 00:00: 00 amlodipine 2021-0 No 1mg 10 mg 1-26 tablet 00:00: 00 amlodipine 2021-0 No 1mg 10 mg 1-26 tablet 00:00: 00 amlodipine 2021-0 No 1mg 10 mg 1-26 tablet 00:00: 00 amlodipine 2021-0 No 1mg 10 mg 1-26 tablet 00:00: 00 amlodipine 2021-0 No 1mg 10 mg 1-26 tablet 00:00: 00 amlodipine 2021-0 No 1mg 10 mg 1-26 tablet 00:00: 00 glipizide 2020-1 No 1mg ER 5 mg 2-04 tablet, 00:00: extended 00 release 24 hr fenofibrate 2019-1 No 1mg nanocrystal 2-04 lized 145 00:00: mg tablet 00 atorvastati 2019-05 No 1mg n 40 mg 2-04 tablet 00:00: 00 glipizide 2019-05 No 1mg ER 5 mg 2-04 tablet, 00:00: extended 00 release 24 hr fenofibrate 2019-05 No 1mg nanocrystal 2-04 lized 145 00:00: mg tablet 00 atorvastati 2019-05 No 1mg n 40 mg 2-04 tablet 00:00: 00 glipizide 2019-05 No 1mg ER 5 mg 2-04 tablet, 00:00: extended 00 release 24 hr fenofibrate 2019-05 No 1mg nanocrystal 2-04 lized 145 00:00: mg tablet 00 atorvastati 2019-05 No 1mg n 40 mg 2-04 tablet 00:00: 00 glipizide 2019-05 No 1mg ER 5 mg 2-04 tablet, 00:00: extended 00 release 24 hr fenofibrate 2019-05 No 1mg nanocrystal 2-04 lized 145 00:00: mg tablet atorvastati 2019-05 No 1mg n 40 mg 2-04 tablet 00:00: 00 glipizide 2019-05 No 1mg ER 5 mg 2-04 tablet, 00:00: extended 00 release 24 hr fenofibrate 2019-05 No 1mg nanocrystal 2-04 lized 145 00:00: mg tablet atorvastati 2019-05 No 1mg n 40 mg 2-04 tablet 00:00: 00 glipizide 2019-05 No 1mg ER 5 mg 2-04 tablet, 00:00: extended 00 release 24 hr fenofibrate 2019-05 No 1mg nanocrystal 2-04 lized 145 00:00: mg tablet 00 atorvastati 2019-05 No 1mg n 40 mg 2-04 tablet 00:00: 00 glipizide 2019-05 No 1mg ER 5 mg 2-04 tablet, 00:00: extended 00 release 24 hr fenofibrate 2019-05 No 1mg nanocrystal 2-04 lized 145 00:00: mg tablet 00 atorvastati 2019-05 No 1mg n 40 mg 2-04 tablet 00:00: 00 glipizide 2019-05 No 1mg ER 5 mg 2-04 tablet, 00:00: extended 00 release 24 hr fenofibrate 2019- No 1mg nanocrystal 2-04 lized 145 00:00: mg tablet 00 atorvastati 2019-05 No 1mg n 40 mg 2-04 tablet 00:00: 00 diclofenac 2019- No 1% 1 % topical 2-02 gel 00:00: 00 amlodipine 2019-05 No 1mg 10 mg 2-02 tablet 00:00: 00 aspirin 81 2019-05 No 1mg mg 2-02 tablet,girma 00:00: yed release 00 aspirin 81 2019-05 No 1mg mg 2-02 tablet,girma 00:00: yed release 00 amlodipine 2019-05 No 1mg 10 mg 2-02 tablet 00:00: 00 sevelamer 2019- No 1mg carbonate 2-02 800 mg 00:00: [...] 100 mcg 2-02 tablet 00:00: 00 diclofenac 2019- No 1% 1 % topical 2-02 gel 00:00: 00 amlodipine 2019-05 No 1mg 10 mg 2-02 tablet 00:00: 00 aspirin 81 2019- No 1mg mg 2-02 tablet,girma 00:00: yed [...] 100 mcg 2-02 tablet 00:00: 00 diclofenac 2019- No 1% 1 % topical 2-02 gel 00:00: 00 amlodipine 2019- No 1mg 10 mg 2-02 tablet 00:00: 00 aspirin 81 2019-05 No 1mg mg 2-02 tablet,girma 00:00: yed release 00 amlodipine 2019-05 No 1mg 10 mg 2-02 tablet 00:00: 00 sevelamer 2019- No 1mg carbonate 2-02 800 mg 00:00: [...] ne 100 mcg 2-02 tablet 00:00: 00 Dose 2019-1 No Unknown 2-02 00:00: 00 Dose 2019-1 No Unknown 2-02 00:00: 00 diclofenac 2019- No 1% 1 % topical 2-02 gel 00:00: 00 amlodipine 2019- No 1mg 10 mg 2-02 tablet 00:00: 00 aspirin 81 2019-1 No 1mg mg 2-02 tablet,girma 00:00: yed release 00 amlodipine 2019- No 1mg 10 mg 2-02 tablet 00:00: 00 sevelamer 2019- No 1mg carbonate 2-02 800 mg 00:00: tablet 00 sevelamer 2019- No 1mg carbonate 2-02 800 mg 00:00: [...] ne 100 mcg 2-02 tablet 00:00: 00 Dose 2019- No Unknown 2-02 00:00: 00 Dose 2019- No Unknown 2-02 00:00: 00 diclofenac 2019- No 1% 1 % topical 2-02 gel 00:00: 00 amlodipine 2019-05 No 1mg 10 mg 2-02 tablet 00:00: 00 aspirin 81 2019- No 1mg mg 2-02 tablet,girma 00:00: yed [...] 10 mg 2-02 tablet 00:00: 00 sevelamer 2019- No 1mg carbonate 2-02 800 mg 00:00: [...] 10 mg 2-02 tablet 00:00: 00 atorvastati 2019- No 1mg n 10 mg 2-02 tablet 00:00: 00 calcium 2019- No 1(1,250 carbonate 2-02 mg) 500 mg 00:00: calcium 00 (1,250 mg) chewable tablet calcium 2019- No 1(1,250 carbonate 2-02 mg) 500 mg 00:00: calcium 00 (1,250 mg) chewable tablet levothyroxi 2019- No 1mcg ne 200 mcg 2-02 tablet 00:00: 00 levothyroxi 2019-1 No 1mcg ne 100 mcg 2-02 tablet 00:00: 00 levothyroxi 2019-1 No 1mcg ne 200 mcg 2-02 tablet 00:00: 00 levothyroxi 2019- No 1mcg ne 100 mcg 2-02 tablet 00:00: 00 amlodipine 2019-1 No 1mg 10 mg 0-21 tablet 00:00: 00 amlodipine 2019-1 No 1mg 10 mg 0-21 tablet 00:00: 00 amlodipine 2019-1 No 1mg 10 mg 0-21 tablet 00:00: 00 amlodipine 2019-1 No 1mg 10 mg 0-21 tablet 00:00: 00 amlodipine 2019-1 No 1mg 10 mg 0-21 tablet 00:00: 00 amlodipine 2019-1 No 1mg 10 mg 0-21 tablet 00:00: 00 amlodipine 2019-1 No 1mg 10 mg 0-21 tablet 00:00: [...] 10 MG 17:30: nightly. Medical tablet 21 [facility] calcium 2020-0 Yes 3{tbl} Q.[id number] Take [address] [facility] carbonate 8-15 [id number] [facility] (TUMS) 500 17:30: 3D mouth 3 Medi benjy mg chewable 21 (three) Cente r tablet times daily. furosemide 2020-0 Yes 20mg QD Take [address] (LASIX) 20 8-15 [facility] tablet 17:30: daily. Medica l [address] [place] [address] lovastatin 2020-0 Yes 10mg QD Take [address] (MEVACOR) 8-15 [facility] 10 MG 17:30: nightly. Medical tablet [address] [place] [address] calcium 2020-0 Yes 3{tbl} Q.[id number] Take [address] [facility] carbonate 8-15 [id number] tablets [facility] (TUMS) 500 17:30: 3D mouth 3 Medi benjy mg chewable 21 (three) Cente r tablet times daily. furosemide 2020-0 Yes 20mg QD Take [address] (LASIX) 20 8-15 [facility] tablet 17:30: daily. Medica l [address] [place] [address] lovastatin 2020-0 Yes 10mg QD Take [address] (MEVACOR) 8-15 [facility] 10 MG 17:30: nightly. Medical tablet [address] [place] [address] calcium 2020-0 Yes 3{tbl} Q.[id number] Take [address] [facility] [address] carbonate 8-15 [id number] tablets [facility] (TUMS) 500 17:30: 3D mouth 3 Medi benjy mg chewable 21 (three) Cente r tablet times daily. furosemide 2020-0 Yes 20mg QD Take [address] (LASIX) 20 8-15 by [facility] tablet 17:30: daily. Medica l [address] [place] [address] lovastatin 2020-0 Yes 10mg QD Take [address] (MEVACOR) 8-15 [facility] 10 MG 17:30: nightly. Medical tablet 21 [facility] calcium 2020-0 Yes 3{tbl} Q.[id number] Take [address] [facility] [address] carbonate 8-15 [id number] tablets [facility] (TUMS) 500 17:30: 3D mouth 3 Medi benjy mg chewable 21 (three) Cente r tablet times daily. furosemide 2020-0 Yes 20mg QD Take [address] (LASIX) 20 8-15 by [facility] tablet 17:30: daily. Medica [address] lovastatin 2020-0 Yes 10mg QD Take [address] (MEVACOR) 8-15 [facility] 10 MG 17:30: nightly. Medical tablet [address] [place] [address] calcium 2020-0 Yes 3{tbl} Q.[id number] Take [address] [facility] [address] carbonate 8-15 [id number] tablets [facility] (TUMS) 500 17:30: 3D mouth 3 Medi benjy mg chewable 21 (three) Cente r tablet times daily. furosemide 2020-0 Yes 20mg QD Take [address] (LASIX) 20 8-15 [facility] tablet 17:30: [facility] [address] lovastatin 2020-0 Yes 10mg QD Take [address] (MEVACOR) 8-15 [facility] 10 MG 17:30: nightly. Medical tablet [address] [place] [address] calcium 2020-0 Yes 3{tbl} Q.[id number] Take [address] [facility] [address] carbonate 8-15 [id number] tablets [facility] (TUMS) 500 17:30: 3D mouth 3 Medi benjy mg chewable 21 (three) Cente r tablet times daily. furosemide 2020-0 Yes 20mg QD Take [address] (LASIX) 20 8-15 [facility] tablet 17:30: [facility]. [facility] [address] lovastatin 2020-0 Yes 10mg QD Take [address] (MEVACOR) 8-15 [facility] 10 MG 17:30: nightly. Medical tablet [address] [place] [address] calcium 2020-0 Yes 3{tbl} Q.[id number] Take [address] [facility] [address] carbonate 8-15 [id number] tablets [facility] (TUMS) 500 17:30: 3D mouth 3 Medi benjy mg chewable 21 (three) Cente r tablet times daily. furosemide 2020-0 Yes 20mg QD Take [address] (LASIX) 20 8-15 by [facility] tablet 17:30: [facility]. [facility] [address] lovastatin 2020-0 Yes 10mg QD Take [address] (MEVACOR) 8-15 [facility] 10 MG 17:30: nightly. Medical tablet [address] [place] [address] calcium 2020-0 Yes 3{tbl} Q.[id number] Take [address] [facility] [address] carbonate 8-15 [id number] tablets [facility] (TUMS) 500 17:30: 3D mouth 3 Medi benjy mg chewable 21 (three) Cente r tablet times daily. furosemide 2020-0 Yes 20mg QD Take [address] (LASIX) 20 8-15 by [facility] tablet 17:30: daily. [address] lovastatin 2020-0 Yes 10mg QD Take [address] (MEVACOR) 8-15 [facility] 10 MG 17:30: nightly. Medical tablet [address] [place] [address] calcium 2020-0 Yes 3{tbl} Q.[id number] Take [address] [facility] [address] carbonate 8-15 [id number] tablets [facility] (C-VibesS) 500 17:30: 3D mouth 3 Medi benjy mg chewable 21 (three) Cente r tablet times daily. furosemide 2020-0 Yes 20mg QD Take [address] (LASIX) 20 8-15 by [facility] tablet 17:30: daily. [address] lovastatin 2020-0 Yes 10mg QD Take [address] (MEVACOR) 8-15 [facility] 10 MG 17:30: nightly. Medical tablet [address] [place] [address] calcium 2020-0 Yes 3{tbl} Q.[id number] Take [address] [facility] [address] carbonate 8-15 [id number] tablets [facility] (TUMS) 500 17:30: 3D mouth 3 Medi benjy mg chewable 21 (three) Cente r tablet times daily. furosemide 2020-0 Yes 20mg QD Take [address] (LASIX) 20 8-15 by [facility] tablet 17:30: daily. [address] lovastatin 2020-0 Yes 10mg QD Take [address] (MEVACOR) 8-15 [facility] 10 MG 17:30: nightly. Medical tablet [address] [place] [address] calcium 2020-0 Yes 3{tbl} Q.[id number] Take [address] [facility] [address] carbonate 8-15 [id number] tablets [facility] (TUMS) 500 17:30: 3D mouth 3 Medi benjy mg chewable 21 (three) Cente r tablet times daily. furosemide 2020-0 Yes 20mg QD Take [address] (LASIX) 20 8-15 [facility] tablet 17:30: daily. Medica l 21 Center cyclobenzap 2020-0 Yes 1{tbl} QD Take 1 [...] cyclobenzap 2020-0 No 1mg rine 10 mg - tablet 00:00: 00 levothyroxi 2020-0 No 1mcg ne 200 mcg - tablet 00:00: 00 levothyroxi 2020-0 No 1mcg [...] MEALS Center 3 TIMES A DAY atorvastati 2019-0 Yes 1{tbl} QD Take [address] [facility] (LIPITOR) 5-15 tablet by [facility] 10 MG 00:00: mouth Medical tablet 00 daily. Petty amlodipine 2019-0 No 1mg 10 mg 5-15 tablet 00:00: [...] 10 mg 5-15 tablet 00:00: 00 atorvastati 2019-0 Yes 1{tbl} QD Take [address] [facility] (LIPITOR) 5-15 tablet by [facility] 10 MG 00:00: mouth Medical tablet 00 daily. Petty atorvastati 2019-0 Yes 1{tbl} QD Take [address] [facility] (LIPITOR) 5-15 tablet by [facility] 10 MG 00:00: mouth Medical tablet 00 daily. Petty atorvastati 2019-0 Yes 1{tbl} QD Take [address] [facility] (LIPITOR) 5-15 tablet by [facility] 10 MG 00:00: mouth Medical tablet 00 daily. Petty atorvastati 2019-0 Yes 1{tbl} QD Take [address] [facility] (LIPITOR) 5-15 tablet by [facility] 10 MG 00:00: mouth Medical tablet 00 daily. Petty atorvastati 2019-0 Yes 1{tbl} QD Take [address] [facility] (LIPITOR) 5-15 tablet by [facility] 10 MG 00:00: mouth Medical tablet 00 daily. Petty atorvastati 2019-0 Yes 1{tbl} QD Take [address] [facility] (LIPITOR) 5-15 tablet by [facility] 10 MG 00:00: mouth Medical tablet 00 daily. Petty atorvastati 2020-0 Yes 1{tbl} QD Take [address] [facility] (LIPITOR) 5-15 tablet by [facility] 10 MG 00:00: mouth Medical tablet 00 daily. Petty atorvastati 2020-0 Yes 1{tbl} QD Take [address] [facility] (LIPITOR) 5-15 tablet by [facility] 10 MG 00:00: mouth Medical tablet 00 daily. Petty atorvastati 2020-0 Yes 1{tbl} QD Take [address] [facility] (LIPITOR) 5-15 tablet by [facility] 10 MG 00:00: mouth Medical tablet 00 daily. Petty atorvastati 2020-0 Yes 1{tbl} QD Take [address] [facility] (LIPITOR) 5-15 tablet by [facility] 10 MG 00:00: mouth Medical tablet 00 daily. Petty aspirin 81 2020-0 No 1mg mg 3-04 [...] 25 3-04 mg tablet 00:00: 00 sevelamer 2019-0 No 1mg carbonate 3-04 800 mg 00:00: tablet 00 atorvastati 2020-0 No 1mg n 10 mg 3-04 tablet 00:00: 00 calcium 2019-0 No 1(1,250 carbonate 3-04 mg) 500 mg 00:00: calcium 00 (1,250 mg) chewable tablet levothyroxi 2019-0 No 1mcg ne 200 mcg 3-04 tablet 00:00: 00 levothyroxi 2020-0 No 1mcg ne 100 mcg 3-04 tablet 00:00: 00 amLODIPine 2020-0 Yes 10mg QD Take [address] (NORVASC) 1-16 [facility] 10 MG 00:00: daily . Medical tablet 00 Petty amLODIPine 2020-0 Yes 10mg QD Take [address] (NORVASC) 1-16 [facility] 10 MG 00:00: daily . Medical tablet 00 Petty amLODIPine 2020-0 Yes 10mg QD Take [address] (NORVASC) 1-16 [facility] 10 MG 00:00: daily . Medical tablet 00 Petty amLODIPine 2020-0 Yes 10mg QD Take [address] (NORVASC) 1-16 [facility] 10 MG 00:00: daily . Medical tablet 00 Petty amLODIPine 2020-0 Yes 10mg QD Take [address] (NORVASC) 1-16 [facility] 10 MG 00:00: daily . Medical tablet 00 Petty amLODIPine 2020-0 Yes 10mg QD Take [address] (NORVASC) 1-16 [facility] 10 MG 00:00: daily . Medical tablet 00 Petty amLODIPine 2020-0 Yes 10mg QD Take [address] (NORVASC) 1-16 [facility] 10 MG 00:00: daily . Medical tablet 00 Petty amLODIPine 2020-0 Yes 10mg QD Take [address] (NORVASC) 1-16 [facility] 10 MG 00:00: daily . Medical tablet 00 Petty amLODIPine 2020-0 Yes 10mg QD Take [address] (NORVASC) 1-16 [facility] 10 MG 00:00: daily . Medical tablet 00 Petty amLODIPine 2020-0 Yes 10mg QD Take [address] (NORVASC) 1-16 [facility] 10 MG 00:00: daily . Medical tablet 00 Petty amLODIPine 2020-0 Yes 10mg QD Take [address] (NORVASC) 1-16 [facility] 10 MG 00:00: daily . Medical tablet 00 Petty sevelamer 2020-0 Yes 800mg Q.[id number] [address] [facility] (RENVELA) 1-10 [id number] (three) [facility] 800 mg 00:00: 3D times Medical tablet 00 daily . Petty UNITHROID 2020-0 Yes 125ug QD Take [address] [facility] 125 mcg 1-10 mcg [facility] tablet 00:00: mouth Medical 00 nightly . Petty aspirin 81 2020-0 No 1mg mg 1-10 [...] tablet 00:00: 00 sevelamer 2020-0 Yes 800mg Q.[id number] [address] [facility] ([place]ENVEL[place]) 1-10 [id number] (three) [facility] 800 mg 00:00: 3D times Medical tablet 00 daily . Petty UNITHROID 2020-0 Yes 125ug QD Take [address] [facility] 125 mcg 1-10 mcg [facility] tablet 00:00: mouth Medical 00 nightly . Petty sevelamer 2020-0 Yes 800mg Q.[id number] [address] [facility] ([place]ENVEL[place]) 1-10 [id number] (three) [facility] 800 mg 00:00: 3D times Medical tablet 00 daily . Petty UNITHROID 2020-0 Yes 125ug QD Take [address] [facility] 125 mcg 1-10 mcg by [facility] tablet 00:00: mouth Medical 00 nightly . Petty sevelamer 2020-0 Yes 800mg Q.[id number] [address] [facility] ([place]ENVEL[place]) 1-10 [id number] (three) [facility] 800 mg 00:00: 3D times Medical tablet 00 daily . Petty UNITHROID 2020-0 Yes 125ug QD Take [address] [facility] 125 mcg 1-10 mcg by [facility] tablet 00:00: mouth Medical 00 nightly . Petty sevelamer 2020-0 Yes 800mg Q.[id number] [address] [facility] ([place]) 1-10 [id number] (three) [facility] 800 mg 00:00: 3D times Medical tablet 00 daily . Petty UNITHROID 2020-0 Yes 125ug QD Take [address] [facility] 125 mcg 1-10 mcg by [facility] tablet 00:00: mouth Medical 00 nightly . Petty sevelamer 2020-0 Yes 800mg Q.[id number] [address] [facility] ([place]ENV[place]) 1-10 [id number] (three) [facility] 800 mg 00:00: 3D times Medical tablet 00 daily . Petty UNITHROID 2020-0 Yes 125ug QD Take [address] [facility] 125 mcg 1-10 mcg by [facility] tablet 00:00: mouth Medical 00 nightly . Petty sevelamer 2020-0 Yes 800mg Q.[id number] [address] [facility] ([place]) 1-10 [id number] (three) [facility] 800 mg 00:00: 3D times Medical tablet 00 daily . Petty UNITHROID 2020-0 Yes 125ug QD Take [address] [facility] 125 mcg 1-10 mcg by [facility] tablet 00:00: mouth Medical 00 nightly . Petty sevelamer 2020-0 Yes 800mg Q.[id number] [address] [facility] ([place]) 1-10 [id number] (three) [facility] 800 mg 00:00: 3D times Medical tablet 00 daily . Petty UNITHROID 2020-0 Yes 125ug QD Take [address] [facility] 125 mcg 1-10 mcg [facility] tablet 00:00: mouth Medical 00 nightly . Petty sevelamer 2020-0 Yes 800mg Q.[id number] [address] [facility] ([place]) 1-10 [id number] (three) [facility] 800 mg 00:00: 3D times Medical tablet 00 daily . Petty UNITHROID 2020-0 Yes 125ug QD Take [address] [facility] 125 mcg 1-10 mcg by [facility] tablet 00:00: mouth Medical 00 nightly . Petty sevelamer 2020-0 Yes 800mg Q.[id number] [address] [facility] ([place]) 1-10 [id number] (three) [facility] 800 mg 00:00: 3D times Medical tablet 00 daily . Petty UNITHROID 2020-0 Yes 125ug QD Take [address] [facility] 125 mcg 1-10 mcg [facility] tablet 00:00: mouth Medical 00 nightly . Petty sevelamer 2020-0 Yes 800mg Q.[id number] [address] [facility] ([place]) 1-10 [id number] (three) [facility] 800 mg 00:00: 3D times Medical tablet 00 daily . Petty UNITHROID 2020-0 Yes 125ug QD Take [address] [facility] 125 mcg 1-10 mcg [facility] tablet 00:00: mouth Medical 00 nightly . Petty amlodipine 2020-0 No 1mg 10 mg 1-08 [...] 125 mcg 2-04 tablet 00:00: 00 levothyroxi 2018- No 2mcg ne 125 mcg 2-04 tablet 00:00: 00 amlodipine 2018- No 1mg 10 mg 1-19 tablet 00:00: 00 aspirin 81 2018-05 No 1mg mg 1-19 tablet,girma 00:00: yed release 00 atorvastati 2018-05 No 1mg n 10 mg 1-19 tablet [...] calcium 00 (1,250 mg) chewable tablet amlodipine 2018-05 No 1mg 10 mg 1-19 tablet 00:00: 00 aspirin 81 2018-05 No 1mg mg 1-19 tablet,girma 00:00: yed release 00 amlodipine 2018- No 1mg 10 mg 1-19 tablet 00:00: 00 aspirin 81 2018-05 No 1mg mg 1-19 tablet,girma 00:00: yed release 00 atorvastati 2018- No 1mg n 10 mg 1-19 tablet 00:00: 00 calcium 2018- No 1(1,250 carbonate 1-19 mg) 500 mg 00:00: calcium 00 (1,250 mg) chewable tablet atorvastati 2018- No 1mg n 10 mg [...] calcium 00 (1,250 mg) chewable tablet amlodipine 2018-05 No 1mg 10 mg 1-19 tablet 00:00: 00 aspirin 81 2018-05 No 1mg mg 1-19 tablet,girma 00:00: yed release 00 atorvastati 2018-05 No 1mg n 10 mg 1-19 tablet 00:00: 00 calcium 2018- No 1(1,250 carbonate 1-19 mg) 500 mg 00:00: calcium 00 (1,250 mg) chewable tablet loratadine 2018- No 1mg 10 mg 1-12 tablet 00:00: 00 benzonatate 2018- No 1mg 200 mg 1-12 capsule 00:00: 00 loratadine 2018- No 1mg 10 mg 1-12 tablet 00:00: 00 loratadine 2018- No 1mg 10 mg 1-12 tablet 00:00: 00 benzonatate 2018- No 1mg 200 mg 1-12 capsule 00:00: 00 benzonatate 2018- No 1mg 200 [...] 1-12 capsule 00:00: 00 gabapentin 2018-05 Yes [id number] 100mg Take 1 [facility] 100 mg 0-22 capsule by [facility] of capsule 00:00: mouth 3 [place] 00 (three) Medical times Branch daily. gabapentin 2018-05 Yes [id number] 100mg Take 1 [facility] 100 mg 0-22 capsule by [facility] of capsule 00:00: mouth 3 [place] 00 (three) Medical times Branch daily. aspirin [...] mcg 0-01 tablet 00:00: 00 amLODIPine Yes [id number] 10mg Take 1 [facility] 10 mg 9-16 tablet by ity of tablet 00:00: mouth [place] 00 daily. Medical Branch aspirin 81 Yes [id number] 81mg Take 1 [facility] mg chewable 9-16 tablet by [facility]y of tablet 00:00: mouth [place] 00 daily. Medical Branch atorvastati Yes [id number] 40mg Take 2 [facility] n 20 mg 9-16 tablets by ity of tablet 00:00: mouth at [place] 00 bedtime. Medical Branch calcium Yes [id number] 1000mg Take 2 U nivers carbonate 9-16 tablets by ity of (CALCIUM 00:00: mouth 3 [place] 500) 500 mg 00 (three) Medic al calcium times Branch (1,250 mg) daily with tablet meals. meclizine Yes [id number] 25mg Take 2 U nivers 12.5 mg 9-16 tablets by ity of tablet 00:00: mouth 3 [place] 00 (three) Medical times Branch daily as needed for Dizziness. Para mareo (for dizziness) sevelamer 2019-0 Yes [id number] 800mg Take 1 [facility] 800 mg 9-16 tablet by ity of tablet 00:00: mouth 3 [place] 00 (three) Medical times Branch daily with meals. amLODIPine 2019- Yes [id number] 10mg Take 1 [facility] nivers 10 mg 9-16 tablet by ity of tablet 00:00: mouth [place] 00 daily. Medical Branch aspirin 81 2019-0 Yes [id number] 81mg Take 1 [facility] mg chewable 9-16 tablet by ity of tablet 00:00: mouth [place] 00 daily. Medical Branch atorvastati 2018-0 Yes [id number] 40mg Take 2 [facility] n 20 mg 9-16 tablets by ity of tablet 00:00: mouth at [place] 00 bedtime. Medical Branch calcium 2018- Yes [id number] 1000mg Take 2 U nivers carbonate 9-16 tablets by ity of (CALCIUM 00:00: mouth 3 [place] 500) 500 mg 00 (three) Medic al calcium times Branch (1,250 mg) daily with tablet meals. meclizine 2018- Yes [id number] 25mg Take 2 U nivers 12.5 mg 9-16 tablets by ity of tablet 00:00: mouth 3 00 (three) Medical times Branch daily as needed for Dizziness. Para mareo (for dizziness) sevelamer 2018-0 Yes [id number] 800mg Take 1 [facility] 800 mg 9-16 tablet by ity of tablet 00:00: mouth 3 [place] 00 (three) Medical times Branch daily with meals. amLODIPine 2019-0 Yes 10mg QD Take 10 [...] 15:20: nightly. [facility] tablet 50 l amLODIPine 2018- Yes 10mg QD Take 10 mg M [...] 50 daily. l 150 mcg tablet lovastatin 0 Yes 20mg QD Take 20 mg M ethodi (MEVACOR) 9-[address] 10 MG 15:20: nightly. [facility]osp[facility] tablet 50 l amLODIPine 20190 Yes 10mg QD Take 10 mg M [...] 15:20: nightly. Hospita tablet 50 l amLODIPine 0 Yes 10mg QD Take 10 mg M ethodi (NORVASC) 9-[address] 10 mg 15:20: daily. Hospita tablet 50 l levothyroxi 20190 Yes 150ug QD Take 150 M ethodi ne 9-[address] (SYNTHROID, 15:20: mouth Hospi ta LEVOXYL) 50 daily. l 150 mcg tablet lovastatin 0 Yes 20mg QD Take 20 mg M ethodi (MEVACOR) 9-[address] 10 MG 15:20: nightly. Hospita tablet 50 l levothyroxi 20190 No 1mcg ne 200 mcg 8-22 tablet [...] Comments Sourc e Immunization Name Name Roger COVID-19 2021-12-02 Completed Vaccine 00:00:00 Moderna COVID-19 [...] 00:00:00 Moderna COVID-19 2020-07-06 Completed Vaccine 00:00:00 Padminia COVID-19 2020-07-06 Completed Vaccine 00:00:00 Moderna COVID-19 2020-07-06 Completed Vaccine 00:00:00 Moderna COVID-19 2020-07-06 Completed Vaccine 00:00:00 Moderna COVID-19 2020-07-06 Completed Vaccine 00:00:00 Padminia COVID-19 2020-07-06 Completed Vaccine 00:00:00 Moderna COVID-19 2020-07-06 Completed Vaccine 00:00:00 Moderna COVID-19 2020-07-06 Completed Vaccine 00:00:00 Pneumococcal 2018-03-07 Completed [facility] o f Polysaccharide, 00:00:00 [place] [facility] ical PPSV23 (PNEUMOVAX) Branch Pneumococcal 2018-03-07 Completed University o f Polysaccharide, 00:00:00 [place] [facility] ical PPSV23 (PNEUMOVAX) Branch Vital Signs Vital Name Observation Time Observation Value Comments Source HEIGHT 2019-11-07 00:00:00 162.6 cm WEIGHT 2019-11-07 00:00:00 76.4 kg Systolic blood 2021-12-02 19:06:00 116 mm[Hg] Univer sity of pressure [facility] Diastolic blood 2021-12-02 19:06:00 68 mm[Hg] Unive rsity of pressure [facility] Heart rate 2021-12-02 19:06:00 69 /min [facility] Body height 2021-12-02 19:06:00 162.6 cm [facility] Body weight 2021-12-02 19:06:00 78.019 kg [facility] BMI 2021-12-02 19:06:00 29.52 kg/m2 [facility] Oxygen saturation in 2021-12-02 19:06:00 95 /min [facility] Arterial blood by [facility] Pulse oximetry Branch HEIGHT 2019-11-07 00:00:00 162.6 cm WEIGHT 2019-11-07 00:00:00 76.4 kg HEIGHT 2019-12-14 00:00:00 162.6 cm WEIGHT 2019-12-14 00:00:00 79.379 kg HEIGHT 2019-12-14 00:00:00 162.6 cm WEIGHT 2019-12-14 00:00:00 79.379 kg BP Systolic 2022-04-23 11:19:00 173 mm[Hg] BP Diastolic 2022-04-23 11:19:00 77 mm[Hg] Weight Measured 2022-04-23 11:19:00 169.20 pounds Height Measured 2022-04-23 11:19:00 63.00 inches Body Temperature 2022-04-23 11:19:00 98.20 degrees Heart Rate 2022-04-23 11:19:00 75.00 /min Respiratory Rate 2022-04-23 11:19:00 18.00 /min BP Systolic 2022-04-20 14:00:00 167 mm[Hg] BP Diastolic 2022-04-20 14:00:00 76 mm[Hg] Weight Measured 2022-04-20 14:00:00 169.00 pounds Height Measured 2022-04-20 14:00:00 63.00 inches Body Temperature 2022-04-20 14:00:00 98.20 degrees Heart Rate 2022-04-20 14:00:00 76.00 /min Respiratory Rate 2022-04-20 14:00:00 18.00 /min BP Systolic 2022-03-17 09:29:00 164 mm[Hg] BP Diastolic 2022-03-17 09:29:00 71 mm[Hg] Weight Measured 2022-03-17 09:29:00 177.60 pounds Height Measured 2022-03-17 09:29:00 63.00 inches Body Temperature 2022-03-17 09:29:00 97.40 degrees Heart Rate 2022-03-17 09:29:00 72.00 /min Respiratory Rate 2022-03-17 09:29:00 BP Systolic 2022-03-04 14:03:00 176 mm[Hg] BP [...] Respiratory Rate 2021-04-08 08:34:00 18.00 /min Procedures Procedure Date / Time Performed Performing Clinician [facility] e [id number] 2022-04-17 00:00:00 [facility] [id number] 2022-04-08 00:00:00 [facility] Plan of Care Planned Activity Planned Date Details Comments Source Future Scheduled 2022-07-[address] [facility] 00:00:00 (procedure) [code = [facility] [id number]] Future Scheduled 2022-07-[address] [facility] 00:00:00 (procedure) [code = [facility] [id number]] Future Scheduled 2022-07-[address] [facility] 00:00:00 (procedure) [code = [facility] [id number]] Future Scheduled 2022-07-[address] [facility] 00:00:00 (procedure) [code = [facility] [id number]] Future Scheduled 2022-07-[address] [facility] 00:00:00 (procedure) [code = [facility] [id number]] Future Scheduled 2022-07-[address] [facility] 00:00:00 (procedure) [code = [facility] [id number]] Future Scheduled 2022-07-[address] [facility] 00:00:00 (procedure) [code = [facility] [id number]] Future Scheduled 2022-07-[address] [facility] 00:00:00 (procedure) [code = [facility] [id number]] Future Scheduled 2022-07-[address] [facility] 00:00:00 (procedure) [code = [facility] [id number]] Future Scheduled 2022-07-[address] [facility] 00:00:00 (procedure) [code = [facility] [id number]] Future Scheduled 2022-07-[address] [facility] 00:00:00 (procedure) [code = [facility] [id number]] Future Scheduled 2022-05-11 COVID-19 VACCINE (#1) [facility] Test 00:38:04 [code = COVID-19 VACCINE (#1)] Future Scheduled 2022-05-11 COLONOSCOPY SCREENING [facility] Test 00:38:04 [code = COLONOSCOPY SCREENING] Future Scheduled 2022-05-11 SHINGLES [facility]ACCINES ([facility] 00:[facility]:04 of 2) [code = SHINGLES VACCINES (1 of 2)] Future Scheduled 2022-05-11 INFLUENZA VACCINE [facility] 00:38:04 [code = INFLUENZA VACCINE] Future Scheduled 2022-05-[address] [facility] Test 00:00:00 (12+) [code = Medical Center DEPRESSION SCREENING (12+)] Future Scheduled 2022-04-23 COVID-19 VACCINE (#1) [facility] Test 11:12:56 [code = COVID-19 VACCINE (#1)] Future Scheduled 2022-04-23 COLONOSCOPY SCREENING [facility] Test 11:12:56 [code = COLONOSCOPY SCREENING] Future Scheduled 2022-04-23 SHINGLES VACCINES [facility] 11:12:56 of 2) [code = SHINGLES VACCINES (1 of 2)] Future Scheduled 2022-04-23 INFLUENZA VACCINE [facility] Test 11:12:56 [code = INFLUENZA VACCINE] Future Scheduled 2022-04-20 COLONOSCOPY SCREENING [facility] Test 13:44:31 [code = COLONOSCOPY SCREENING] Future Scheduled 2022-04-20 SHINGLES VACCINES (1 [facility] 13:44:31 of 2) [code = SHINGLES VACCINES (1 of 2)] Future Scheduled 2022-04-20 INFLUENZA VACCINE [facility] Test 13:44:31 [code = INFLUENZA VACCINE] Future Scheduled 2022-04-20 COVID-19 VACCINE (#1) [facility] Test 13:44:31 [code = COVID-19 VACCINE (#1)] Future Scheduled 2022-04-20 COLONOSCOPY SCREENING [facility] 13:44:31 [code = COLONOSCOPY SCREENING] Future Scheduled 2022-04-20 SHINGLES VACCINES ([facility]44:31 of 2) [code = SHINGLES VACCINES (1 of 2)] Future Scheduled 2022-04-20 INFLUENZA VACCINE Method [facility] 13:44:31 [code = INFLUENZA VACCINE] Future Scheduled 2022-04-20 COVID-19 [facility]ACCINE (#[facility] 13:44:31 [code = COVID-19 VACCINE (#1)] Future Scheduled 2022-04-20 COLONOSCOPY SCREENING [facility] Test 13:44:31 [code = COLONOSCOPY SCREENING] Future Scheduled 2022-04-20 SHINGLES VACCINES (1 [facility] Test 13:44:31 of 2) [code = SHINGLES VACCINES (1 of 2)] Future Scheduled 2022-04-20 INFLUENZA VACCINE [facility] Test 13:44:31 [code = INFLUENZA VACCINE] Future Scheduled 2022-04-20 COVID-19 VACCINE (#1) [facility] Test 13:44:31 [code = COVID-19 VACCINE (#1)] Future Scheduled 2022-04-20 COLONOSCOPY SCREENING [facility] Test 13:44:31 [code = COLONOSCOPY SCREENING] Future Scheduled 2022-04-20 SHINGLES VACCINES (1 [facility] Test 13:44:31 of 2) [code = SHINGLES VACCINES (1 of 2)] Future Scheduled 2022-04-20 INFLUENZA VACCINE [facility] Test 13:44:31 [code = INFLUENZA VACCINE] Future Scheduled 2022-04-20 COVID-19 VACCINE (#1) [facility] Test 13:44:31 [code = COVID-19 VACCINE (#1)] Future Scheduled 2022-03-04 HEPATITIS B VACCINES [facility] Test 13:56:11 (1 of 3 - 3-dose series) [code = HEPATITIS B VACCINES (1 of 3 - 3-dose series)] Future Scheduled 2022-03-04 COVID-19 VACCINE (#1) [facility] Test 13:56:11 [code = COVID-19 VACCINE (#1)] Future Scheduled 2022-03-04 COLONOSCOPY SCREENING [facility] Test 13:56:11 [code = COLONOSCOPY SCREENING] Future Scheduled 2022-03-04 SHINGLES VACCINES (1 [facility] Test 13:56:11 of 2) [code = SHINGLES VACCINES (1 of 2)] Future Scheduled 2022-03-04 INFLUENZA VACCINE [facility] Test 13:56:11 [code = INFLUENZA VACCINE] Future Scheduled 2022-03-04 HEPATITIS B VACCINES [facility] Test 13:56:11 (1 of 3 - 3-dose series) [code = HEPATITIS B VACCINES (1 of 3 - 3-dose series)] Future Scheduled 2022-03-04 COVID-19 VACCINE (#1) [facility] Test 13:56:11 [code = COVID-19 VACCINE (#1)] Future Scheduled 2022-03-04 COLONOSCOPY SCREENING [facility] Test 13:56:11 [code = COLONOSCOPY SCREENING] Future Scheduled 2022-03-04 SHINGLES VACCINES (1 [facility] Test 13:56:11 of 2) [code = SHINGLES VACCINES (1 of 2)] Future Scheduled 2022-03-04 INFLUENZA VACCINE [facility] Test 13:56:11 [code = INFLUENZA VACCINE] Future Scheduled 2022-03-04 HEPATITIS B VACCINES [facility] Test 13:56:11 (1 of 3 - 3-dose series) [code = HEPATITIS B VACCINES (1 of 3 - 3-dose series)] Future Scheduled 2022-03-04 COVID-19 VACCINE (#1) [facility] Test 13:56:11 [code = COVID-19 VACCINE (#1)] Future Scheduled 2022-03-04 COLONOSCOPY SCREENING [facility] Test 13:56:11 [code = COLONOSCOPY SCREENING] Future Scheduled 2022-03-04 SHINGLES VACCINES (1 [facility] Test 13:56:11 of 2) [code = SHINGLES VACCINES (1 of 2)] Future Scheduled 2022-03-04 INFLUENZA VACCINE [facility] Test 13:56:11 [code = INFLUENZA VACCINE] Future Scheduled 2022-02-08 HEPATITIS B VACCINES [facility] Test 14:31:50 (1 of 3 - 3-dose series) [code = HEPATITIS B VACCINES (1 of 3 - 3-dose series)] Future Scheduled 2022-02-08 COVID-19 VACCINE (#1) [facility] Test 14:31:50 [code = COVID-19 VACCINE (#1)] Future Scheduled 2022-02-08 COLONOSCOPY SCREENING [facility] Test 14:31:50 [code = COLONOSCOPY SCREENING] Future Scheduled 2022-02-08 SHINGLES VACCINES (1 [facility] Test 14:31:50 of 2) [code = SHINGLES VACCINES (1 of 2)] Future Scheduled 2022-02-08 INFLUENZA VACCINE [facility] Test 14:31:50 [code = INFLUENZA VACCINE] Future Scheduled 2022-01-03 HEPATITIS B VACCINES [facility] Test 04:21:26 (1 of 3 - 3-dose series) [code = HEPATITIS B VACCINES (1 of 3 - 3-dose series)] Future Scheduled 2022-01-03 COVID-19 VACCINE (#1) [facility] Test 04:21:26 [code = COVID-19 VACCINE (#1)] Future Scheduled 2022-01-03 Pneumococcal Vaccine: [facility] Test 04:21:26 Pediatrics (0 to 5 Years) and At-Risk Patients (6 to 64 Years) (1 - PCV) [code = Pneumococcal Vaccine: Pediatrics (0 to 5 Years) and At-Risk Patients (6 to 64 Years) (1 - PCV)] Future Scheduled 2022-01-03 Hepatitis C screening [facility] Test 04:21:26 (procedure) [code = [id number]] Future Scheduled 2022-01-03 SHINGLES VACCINES (1 [facility] Test 04:21:26 of 2) [code = SHINGLES VACCINES (1 of 2)] Future Scheduled 2022-01-03 COLONOSCOPY SCREENING [facility] Test 04:21:26 [code = COLONOSCOPY SCREENING] Future Scheduled 2022-01-03 INFLUENZA VACCINE [facility] Test 04:21:26 [code = INFLUENZA VACCINE] [...] Future Scheduled 2021-12-27 HEPATITIS B VACCINES [facility] Test 10:00:17 (1 of 3 - 3-dose series) [code = HEPATITIS B VACCINES (1 of 3 - 3-dose series)] Future Scheduled 2021-12-27 COVID-19 VACCINE (#1) [facility] Test 10:00:17 [code = COVID-19 VACCINE (#1)] Future Scheduled 2021-12-27 Pneumococcal Vaccine: [facility] Test 10:00:17 Pediatrics (0 to 5 Years) and At-Risk Patients (6 to 64 Years) (1 - PCV) [code = Pneumococcal Vaccine: Pediatrics (0 to 5 Years) and At-Risk Patients (6 to 64 Years) (1 - PCV)] Future Scheduled 2021-12-27 Hepatitis C screening [facility] Test 10:00:17 (procedure) [code = [id number]] Future Scheduled 2021-12-27 SHINGLES VACCINES (1 [facility] Test 10:00:17 of 2) [code = SHINGLES VACCINES (1 of 2)] Future Scheduled 2021-12-27 COLONOSCOPY SCREENING [facility] Test 10:00:17 [code = COLONOSCOPY SCREENING] Future Scheduled 2021-12-27 INFLUENZA VACCINE [facility] Test 10:00:17 [code = INFLUENZA VACCINE] [...] Medical Center DEPRESSION SCREENING (12+)] Future Scheduled 2020-12-[address] [facility] Test 00:00:00 [facility] Scre[facility] (12+) [code = Tobacco Cessation Counseling and Screening (12+)] Future Scheduled 2020-12-[address] [facility] Test 00:00:00 [facility] Screening (12+) [code = Tobacco Cessation Counseling and Screening (12+)] Future Scheduled 2020-12-[address] [facility] Test 00:00:00 [facility] Screening (12+) [code = Tobacco Cessation Counseling and Screening (12+)] Future Scheduled 2020-12-[address] [facility] Test 00:00:00 [facility] Screening (12+) [code = Tobacco Cessation Counseling and Screening (12+)] Future Scheduled 2020-12-[address] [facility] Test 00:00:00 [facility] Screening (12+) [code = Tobacco Cessation Counseling and Screening (12+)] Future Scheduled 2020-12-[address] [facility] Test 00:00:00 [facility] Cent[facility] Screening (12+) [code = Tobacco Cessation Counseling and Screening (12+)] Future Scheduled 2020-12-[address] [facility] Test 00:00:00 [facility] Screening (12+) [code = Tobacco Cessation Counseling and Screening (12+)] Future Scheduled 2020-01-[address] [facility] (procedure) [code = 47383550] Future Scheduled 2020-01-[address] [facility] (procedure) [code = 98500861] Future Scheduled 2020-01-[address] [facility] (procedure) [code = 44866271] Future Scheduled 2020-01-[address] [facility] (procedure) [code = 64136575] Future Scheduled 2020-01-[address] [facility] (procedure) [code = 65232715] Future Scheduled 2020-01-[address] [facility] (procedure) [code = 37062754] Future Scheduled 2020-01-[address] [facility]00 [facility] (procedure) [code = 51641526] Future Scheduled 2020-01-[address] [facility] (procedure) [code = 51826804] Future Scheduled 2020-01-[address] [facility] 00[facility]00 [facility] (procedure) [code = 93163355] Future Scheduled 2020-01-[address] [facility] (procedure) [code = 97662066] Future Scheduled 2020-01-[address] [facility] 00:00:00 [facility] (procedure) [code = 71067122] Future Scheduled 2019-11-[address] [...] 00:00:00 examination Medical Center (regime/therapy) [code = 870306018] Future Scheduled 1975 Urine screening for [facility] Test 00:00:00 protein (procedure) Medical Center [code = 823174335] Future Scheduled 1975 DIABETIC EYE EXAM [facility] Test 00:00:00 [code = DIABETIC EYE Medical Center EXAM] Future Scheduled [address] [facility] examination [facility] Center (regime/therapy) [code = 416078028] Future Scheduled 1975 Urine screening for [facility] Test 00:00:00 protein (procedure) Medical Center [code = 989029994] Future Scheduled [address]AB[address] EYE EXAM [facility] Test 00:00:00 [code = DIABETIC EYE Medical Center EXAM] Future Scheduled [address] [facility] 00:[facility] examination [facility] Center (regime/therapy) [code = 987814263] Future Scheduled 1975 Urine screening for [facility] Test 00:00:00 protein (procedure) Medical Center [code = 103692320] Future Scheduled [address]AB[address]IC EYE EXAM [facility] Test 00:00:00 [code = DIABETIC EYE Medical Center EXAM] Future Scheduled [address] [facility] 00:[facility]:00 examination Medical Center (regime/therapy) [code = 180728366] Future Scheduled 1975 Urine screening for [facility] Test 00:00:00 protein (procedure) Medical Center [code = 601072974] Future Scheduled [address] DIABETIC EYE EXAM [facility] Test 00:00:00 [code = DIABETIC EYE Medical Center EXAM] Future Scheduled [address] [facility] 00:00:00 examination Medical Center (regime/therapy) [code = 081550416] Future Scheduled 1975 Urine screening for [facility] Test 00:00:00 protein (procedure) Medical Center [code = 102608564] Future Scheduled [address]AB[address] EYE EXAM [facility] Test 00:00:00 [code = DIABETIC EYE Medical Center EXAM] Future Scheduled [address] [facility] 00:00:00 examination Medical Center (regime/therapy) [code = 248391120] Future Scheduled 1975 Urine screening for [facility] Test 00:00:00 protein (procedure) Medical Center [code = 589915495] Future Scheduled [address]AB[address] EYE EXAM [facility] Test 00:00:00 [code = DIABETIC EYE Medical Center EXAM] Future Scheduled [address] [facility] 00:00:00 examination Medical Center (regime/therapy) [code = 974598725] Future Scheduled 1975 Urine screening for [facility] Test 00:00:00 protein (procedure) Medical Center [code = 909349870] Future Scheduled [address]AB[address] EYE EXAM [facility] Test 00:00:00 [code = DIABETIC EYE Medical Center EXAM] Future Scheduled [address] [facility] 00:00:00 examination Medical Center (regime/therapy) [code = 523114272] Future Scheduled 1975 Urine screening for [facility] Test 00:00:00 protein (procedure) Medical Center [code = 267998831] Future Scheduled [address]AB[address] EYE EXAM [facility] Test 00:00:00 [code = DIABETIC EYE Medical Center EXAM] Future Scheduled [address] [facility] 00:00:00 examination Medical Center (regime/therapy) [code = 441982091] Future Scheduled 1975 Urine screening for [facility] Test 00:00:00 protein (procedure) Medical Center [code = 377089248] Future Scheduled [address]AB[address] EYE EXAM [facility] Test 00:00:00 [code = DIABETIC EYE Medical Center EXAM] Future Scheduled [address] [facility] 00:00:00 examination Medical Center (regime/therapy) [code = 086297682] Future Scheduled 1975 Urine screening for [facility] Test 00:00:00 protein (procedure) Medical Center [code = 228225669] Future Scheduled [address]AB[address] EYE EXAM [facility] Test 00:00:00 [code = DIABETIC EYE Medical Center EXAM] Future Scheduled [address] [facility] 00:00:00 examination Medical Center (regime/therapy) [code = 001911897] Future Scheduled 1975 Urine screening for [facility] Test 00:00:00 protein (procedure) Medical Center [code = 550120831] Future Scheduled 1965 COVID-19 VACCINE (#1) [facility] [...] [facility] colon (procedure) [code = 832720777] Future Scheduled [address] [facility] 00:00:00 malignant neoplasm of [facility] colon (procedure) [code = 639980217] Future Scheduled [address] [facility] 00:00:00 [facility] colon (procedure) [code = 934322318] Future Scheduled [address] [facility] 00:00:00 [facility] colon (procedure) [code = 475483453] Future Scheduled 1965 S[facility]oidoscopy [facility] Future Scheduled [address] [facility] 00:00:00 (combo) [code = CT Medical C enter Colonography (combo)] Future Scheduled [address] [facility] 00:00:00 [facility] colon (procedure) [code = 940121419] Future Scheduled [address] [facility] 00:00:00 [facility] colon (procedure) [code = 899610689] Future Scheduled [address] [facility] 00:00:00 malignant [facility] colon (procedure) [code = 533092315] Future Scheduled [address] [facility] 00:00:00 [facility] colon (procedure) [code = 412097446] Future Scheduled 1965 [facility] Future Scheduled [address] [facility] 00:00:00 (combo) [code = CT Medical C enter Colonography (combo)] Future Scheduled [address] [facility] 00:00:00 [facility] colon (procedure) [code = 257354081] Future Scheduled [address] [facility] 00:00:00 [facility] colon (procedure) [code = 882377330] Future Scheduled [address] [facility] 00:00:00 [facility] colon (procedure) [code = 932584686] Future Scheduled [address] [facility] 00:00:00 [facility] colon (procedure) [code = 414355288] Future Scheduled 1965 [facility]oscopy [facility]] [facility] Future Scheduled [address] [facility] 00:00:00 (combo) [code = CT Medical C enter Colonography (combo)] Future Scheduled [address] [facility] 00:00:00 malignant ne[facility] of [facility] colon (procedure) [code = 627369219] Future Scheduled [address] [facility] 00:00:00 [facility] ne[facility] of [facility] colon (procedure) [code = 358649259] Future Scheduled [address] [facility] 00:00:00 [facility] of [facility] colon (procedure) [code = 854600025] Future Scheduled [address] [facility] 00:00:00 [facility] ne[facility] colon (procedure) [code = 072660590] Future Scheduled 1965 [facility] Future Scheduled [address] [facility] 00:00:00 (combo) [code = CT Medical C enter Colonography (combo)] Future Scheduled [address] [facility] 00:00:00 [facility] ne[facility] colon (procedure) [code = 750877484] Future Scheduled [address] [facility] 00:00:00 [facility] colon (procedure) [code = 841593833] Future Scheduled [address] [facility] 00:00:00 [facility] colon (procedure) [code = 781496245] Future Scheduled [address] [facility] 00:00:00 [facility] ne[facility] colon (procedure) [code = 947879322] Future Scheduled 1965 [facility]] [facility] r Future Scheduled [address] [facility] 00:00:00 (combo) [code = CT Medical C enter Colonography (combo)] Future Scheduled [address] [facility] 00:00:00 [facility] colon (procedure) [code = 381291551] Future Scheduled [address] [facility] 00:00:00 [facility] neoplasm [facility] colon (procedure) [code = 946245127] Future Scheduled [address] [facility] 00:00:00 malignant neoplasm of [facility] colon (procedure) [code = 045792899] Future Scheduled [address] [facility] 00:00:00 [facility] ne[facility] of [facility] colon (procedure) [code = 929559217] Future Scheduled 1965 [facility]] [facility] Future Scheduled [address] [facility] 00:00:00 (combo) [code = CT Medical C enter Colonography (combo)] Future Scheduled [address] [facility] 00:00:00 [facility] colon (procedure) [code = 461318212] Future Scheduled [address] [facility] 00:00:00 [facility] colon (procedure) [code = 764186272] Future Scheduled [address] [facility] 00:00:00 [facility] colon (procedure) [code = 398409646] Future Scheduled [address] [facility] 00:00:00 [facility] colon (procedure) [code = 546599732] Future Scheduled 1965 [facility]oscopy [facility]] [facility] Future Scheduled [address] [facility] 00:00:00 (combo) [code = CT Medical C enter Colonography (combo)] Future Scheduled [address] [facility] 00:00:00 [facility] colon (procedure) [code = 404829836] Future Scheduled [address] [facility] 00:00:00 [facility] ne[facility] of [facility] colon (procedure) [code = 530428735] Future Scheduled [address] [facility] 00:00:00 [facility] of [facility] colon (procedure) [code = 060301798] Future Scheduled [address] [facility] 00:00:00 [facility] colon (procedure) [code = 916918994] Future Scheduled 1965 [facility]oidoscopy [facility]] [facility] Future Scheduled [address] [facility] 00:00:00 (combo) [code = CT Medical C enter Colonography (combo)] Future Scheduled [address] [facility] 00:00:00 [facility] ne[facility] of [facility] colon (procedure) [code = 730479505] Future Scheduled [address] [facility] 00:00:00 [facility] neoplasm of [facility] colon (procedure) [code = 150475740] Future Scheduled [address] [facility] 00:00:00 [facility] neoplasm of [facility] colon (procedure) [code = 560521653] Future Scheduled [address] [facility] 00:00:00 malignant neoplasm of [facility] colon (procedure) [code = 848154720] Future Scheduled 1965 [facility]oid[facility]] [facility] Scheduled [address] [facility] 00:00:00 (combo) [code = CT Medical C enter Colonography (combo)] Future Scheduled [address] [facility] 00:00:00 [facility] colon (procedure) [code = 123691541] Future Scheduled [address] [facility] 00:00:00 [facility] colon (procedure) [code = 346922615] Future Scheduled [address] [facility] 00:00:00 [facility] colon (procedure) [code = 416451339] Future Scheduled [address] [facility] 00:00:00 [facility]oplasm of [facility] colon (procedure) [code = 408129235] Future Scheduled 1965 [facility]oidoscopy [facility]] [facility] Future Scheduled [address] [facility] 00:00:00 (combo) [code = CT Medical C enter Colonography (combo)] Future Scheduled [address] [facility] Test 00:00:00 malignant neoplasm of [facility] colon (procedure) [code = 846498890] Future Scheduled [address] [facility] Test 00:00:00 malignant neoplasm of [facility] colon (procedure) [code = 341787471] Future Scheduled [address] [facility] Test 00:00:00 malignant neoplasm of [facility] colon (procedure) [code = 141300138] Future Scheduled [address] [facility] Test 00:00:00 malignant neoplasm of [facility] colon (procedure) [code = 660443979] Future Scheduled 1965 [facility]oidoscopy [facility]] Medical Rafal nguyen Goal Plan of Care Note [code = 72549-9] Goal Plan of Care Note [code = 70416-5] Goal Plan of Care Note [code = 34473-0] Goal Plan of Care Note [code = 01754-2] Goal Plan of Care Note [code = 52567-0] Goal Plan of Care Note [code = 67383-7] Goal Plan of Care Note [code = 55071-2] Goal Plan of Care Note [code = 29231-1] Goal Plan of Care Note [code = 96377-1] Goal Plan of Care Note [code = 02170-3] Goal Plan of Care Note [code = 97381-8] Goal Plan of Care Note [code = 88422-7] Goal Plan of Care Note [code = 42600-0] Goal Plan of Care Note [code = 10202-5] Goal Plan of Care Note [code = 48177-6] Goal Plan of Care Note [code = 04442-3] Goal Plan of Care Note [code = 10268-1] Goal Plan of Care Note [code = 00053-3] Goal Plan of Care Note [code = 63967-4] Goal Plan of Care Note [code = 35612-5] Goal Plan of Care Note [code = 43712-2] Goal Plan of Care Note [code = 60418-6] Goal Plan of Care Note [code = 45756-7] Goal Plan of Care Note [code = 91013-4] Goal Plan of Care Note [code = 34625-1] Goal Plan of Care Note [code = 97404-9] Goal Plan of Care Note [code = 31158-3] Goal Plan of Care Note [code = 93431-6] Goal Plan of Care Note [code = 21195-4] Goal Plan of Care Note [code = 76957-5] Goal Plan of Care Note [code = 91031-4] Goal Plan of Care Note [code = 14989-2] Goal Plan of Care Note [code = 04685-2] Goal Plan of Care Note [code = 77067-8] Goal Plan of Care Note [code = 60455-9] Goal Plan of Care Note [code = 40797-2] Goal Plan of Care Note [code = 09844-0] Goal Plan of Care Note [code = 57808-2] Goal Plan of Care Note [code = 05837-1] Goal Plan of Care Note [code = 65897-2] Goal Plan of Care Note [code = 69746-1] Goal Plan of Care Note [code = 58101-7] Goal Plan of Care Note [code = 20202-7] Goal Plan of Care Note [code = 86677-4] Goal Plan of Care Note [code = 36877-0] Goal Plan of Care Note [code = 86940-7] Goal Plan of Care Note [code = 53131-7] Goal Plan of Care Note [code = 21014-6] Goal Plan of Care Note [code = 10398-8] Goal Plan of Care Note [code = 48337-6] Goal Plan of Care Note [code = 01893-2] Goal Plan of Care Note [code = 88242-0] Goal Plan of Care Note [code = 08963-4] Goal Plan of Care Note [code = 52864-5] Goal Plan of Care Note [code = 13097-0] Goal Plan of Care Note [code = 83189-6] Goal Plan of Care Note [code = 05085-2] Goal Plan of Care Note [code = 28343-6] Goal Plan of Care Note [code = 01673-2] Goal Plan of Care Note [code = 58432-4] Goal Plan of Care Note [code = 03837-5] Goal Plan of Care Note [code = 19226-9] Goal Plan of Care Note [code = 65822-4] Goal Plan of Care Note [code = 53824-5] Goal Plan of Care Note [code = 36230-8] Goal Plan of Care Note [code = 09870-4] Goal Plan of Care Note [code = 15608-9] Goal Plan of Care Note [code = 33930-7] Goal Plan of Care Note [code = 08678-5] Goal Plan of Care Note [code = 14134-4] Goal Plan of Care Note [code = 98370-7] Goal Plan of Care Note [code = 66953-5] Goal Plan of Care Note [code = 72538-5] Goal Plan of Care Note [code = 48476-1] Goal Plan of Care Note [code = 71891-0] Goal Plan of Care Note [code = 29891-4] Goal Plan of Care Note [code = 04762-6] Goal Plan of Care Note [code = 02879-3] Goal Plan of Care Note [code = 07890-6] Goal Plan of Care Note [code = 82472-4] Goal Plan of Care Note [code = 41330-9] Goal Plan of Care Note [code = 09876-7] Goal Plan of Care Note [code = 24099-1] Goal Plan of Care Note [code = 42265-2] Goal Plan of Care Note [code = 63878-2] Goal Plan of Care Note [code = 56394-9] Goal Plan of Care Note [code = 79241-7] Goal Plan of Care Note [code = 90153-5] Goal Plan of Care Note [code = 69949-8] Goal Plan of Care Note [code = 04747-3] Goal Plan of Care Note [code = 50250-5] Goal Plan of Care Note [code = 74253-9] Goal Plan of Care Note [code = 92283-6] Goal Plan of Care Note [code = 35272-1] Goal Plan of Care Note [code = 77769-5] Goal Plan of Care Note [code = 49712-8] Goal Plan of Care Note [code = 96337-5] Goal Plan of Care Note [code = 84985-5] Goal Plan of Care Note [code = 82368-7] Goal Plan of Care Note [code = 98642-9] Goal Plan of Care Note [code = 47631-9] Goal Plan of Care Note [code = 59688-7] Goal Plan of Care Note [code = 77836-3] Goal Plan of Care Note [code = 75866-9] Goal Plan of Care Note [code = 39303-3] Goal Plan of Care Note [code = 48700-5] Goal Plan of Care Note [code = 42718-0] Goal Plan of Care Note [code = 11652-9] Goal Plan of Care Note [code = 16075-1] Goal Plan of Care Note [code = 13107-2] Goal Plan of Care Note [code = 29464-3] Goal Plan of Care Note [code = 80348-2] Goal Plan of Care Note [code = 42019-1] Goal Plan of Care Note [code = 83984-2] Goal Plan of Care Note [code = 11392-7] Goal Plan of Care Note [code = 30582-9] Goal Plan of Care Note [code = 25734-3] Goal Plan of Care Note [code = 83073-6] Goal Plan of Care Note [code = 52002-2] Goal Plan of Care Note [code = 09791-9] Goal Plan of Care Note [code = 87032-6] Goal Plan of Care Note [code = 98625-2] Goal Plan of Care Note [code = 59739-2] Goal Plan of Care Note [code = 86411-5] Goal Plan of Care Note [code = 92845-2] Goal Plan of Care Note [code = 24412-7] Goal Plan of Care Note [code = 41615-0] Goal Plan of Care Note [code = 92815-9] Goal Plan of Care Note [code = 68461-6] Goal Plan of Care Note [code = 34530-7] Goal Plan of Care Note [code = 92194-8] Goal Plan of Care Note [code = 40574-4] Goal Plan of Care Note [code = 32959-0] Goal Plan of Care Note [code = 73853-2] Goal Plan of Care Note [code = 92090-7] Goal Plan of Care Note [code = 58500-0] Goal Plan of Care Note [code = 81240-5] Goal Plan of Care Note [code = 32627-7] Goal Plan of Care Note [code = 04998-3] Goal Plan of Care Note [code = 25551-9] Goal Plan of Care Note [code = 37790-1] Goal Plan of Care Note [code = 97612-3] Goal Plan of Care Note [code = 60855-3] Goal Plan of Care Note [code = 27705-0] Goal Plan of Care Note [code = 55328-9] Goal Plan of Care Note [code = 52948-9] Goal Plan of Care Note [code = 14982-6] Goal Plan of Care Note [code = 43702-7] Goal Plan of Care Note [code = 97108-6] Goal Plan of Care Note [code = 87911-6] Goal Plan of Care Note [code = 03509-7] Goal Plan of Care Note [code = 51393-4] Goal Plan of Care Note [code = 87619-5] Goal Plan of Care Note [code = 60218-2] Goal Plan of Care Note [code = 24902-1] Goal Plan of Care Note [code = 02533-3] Goal Plan of Care Note [code = 29752-4] Goal Plan of Care Note [code = 59999-7] Goal Plan of Care Note [code = 45655-5] Goal Plan of Care Note [code = 26222-8] Goal Plan of Care Note [code = 86516-3] Goal Plan of Care Note [code = 23589-0] Goal Plan of Care Note [code = 06567-6] Goal Plan of Care Note [code = 14072-4] Goal Plan of Care Note [code = 29154-6] Goal Plan of Care Note [code = 44638-3] Goal Plan of Care Note [code = 69237-8] Goal Plan of Care Note [code = 27340-2] Goal Plan of Care Note [code = 45130-7] Goal Plan of Care Note [code = 54202-7] Goal Plan of Care Note [code = 94145-6] Goal Plan of Care Note [code = 69854-4] Goal Plan of Care Note [code = 94238-1] Goal Plan of Care Note [code = 13556-6] Goal Plan of Care Note [code = 81394-8] Goal Plan of Care Note [code = 22815-5] Goal Plan of Care Note [code = 62306-6] Goal Plan of Care Note [code = 17035-0] Goal Plan of Care Note [code = 60994-9] Goal Plan of Care Note [code = 86675-5] Goal Plan of Care Note [code = 61804-9] Goal Plan of Care Note [code = 09064-3] Goal Plan of Care Note [code = 39990-5] Goal Plan of Care Note [code = 71057-0] Goal Plan of Care Note [code = 29545-2] Goal Plan of Care Note [code = 89212-9] Goal Plan of Care Note [code = 41131-2] Goal Plan of Care Note [code = 92748-3] Goal Plan of Care Note [code = 70009-4] Goal Plan of Care Note [code = 95947-1] Goal Plan of Care Note [code = 95332-5] Goal Plan of Care Note [code = 45870-3] Goal Plan of Care Note [code = 05928-4] Goal Plan of Care Note [code = 16721-8] Goal Plan of Care Note [code = 20468-0] Goal Plan of Care Note [code = 11125-7] Goal Plan of Care Note [code = 65369-6] Goal Plan of Care Note [code = 61605-5] Goal Plan of Care Note [code = 42261-6] Goal Plan of Care Note [code = 32017-3] Goal Plan of Care Note [code = 56496-3] Goal Plan of Care Note [code = 26353-9] Goal Plan of Care Note [code = 66756-5] Goal Plan of Care Note [code = 64997-5] Goal Plan of Care Note [code = 02432-5] Goal Plan of Care Note [code = 72340-0] Goal Plan of Care Note [code = 17854-0] Goal Plan of Care Note [code = 08239-6] Goal Plan of Care Note [code = 78575-1] Goal Plan of Care Note [code = 65705-3] Goal Plan of Care Note [code = 81315-1] Goal Plan of Care Note [code = 20585-5] Goal Plan of Care Note [code = 60393-5] Goal Plan of Care Note [code = 41152-5] Goal Plan of Care Note [code = 07506-3] Goal Plan of Care Note [code = 20571-6] Goal Plan of Care Note [code = 53653-1] Goal Plan of Care Note [code = 03559-4] Goal Plan of Care Note [code = 56434-3] Goal Plan of Care Note [code = 80920-2] Goal Plan of Care Note [code = 62696-6] Goal Plan of Care Note [code = 86196-6] Goal Plan of Care Note [code = 94744-9] Goal Plan of Care Note [code = 52382-0] Goal Plan of Care Note [code = 94728-2] Goal Plan of Care Note [code = 17517-7] Goal Plan of Care Note [code = 47229-4] Goal Plan of Care Note [code = 83999-3] Goal Plan of Care Note [code = 82679-8] Goal Plan of Care Note [code = 19225-6] Goal Plan of Care Note [code = 73663-2] Goal Plan of Care Note [code = 80843-6] Goal Plan of Care Note [code = 41150-2] Goal Plan of Care Note [code = 32989-6] Goal Plan of Care Note [code = 78831-6] Goal Plan of Care Note [code = 38916-4] Goal Plan of Care Note [code = 33118-2] Goal Plan of Care Note [code = 50437-1] Goal Plan of Care Note [code = 25860-9] Goal Plan of Care Note [code = 33676-5] Goal Plan of Care Note [code = 62673-1] Goal Plan of Care Note [code = 10036-7] Goal Plan of Care Note [code = 44006-6] Goal Plan of Care Note [code = 28241-3] Goal Plan of Care Note [code = 77923-0] Goal Plan of Care Note [code = 68606-8] Goal Plan of Care Note [code = 50448-2] Goal Plan of Care Note [code = 71653-9] Goal Plan of Care Note [code = 73058-6] Goal Plan of Care Note [code = 76772-0] Goal Plan of Care Note [code = 23270-1] Goal Plan of Care Note [code = 12264-9] Goal Plan of Care Note [code = 37777-6] Goal Plan of Care Note [code = 74999-4] Goal Plan of Care Note [code = 51157-6] Goal Plan of Care Note [code = 93286-7] Goal Plan of Care Note [code = 48003-2] Goal Plan of Care Note [code = 07562-2] Goal Plan of Care Note [code = 85185-8] Goal Plan of Care Note [code = 74052-1] Goal Plan of Care Note [code = 39337-4] Goal Plan of Care Note [code = 44385-2] Goal Plan of Care Note [code = 85716-7] Goal Plan of Care Note [code = 14697-0] Goal Plan of Care Note [code = 49016-0] Goal Plan of Care Note [code = 83294-1] Goal Plan of Care Note [code = 51732-1] Goal Plan of Care Note [code = 10774-6] Goal Plan of Care Note [code = 44778-0] Goal Plan of Care Note [code = 71075-3] Goal Plan of Care Note [code = 74824-0] Goal Plan of Care Note [code = 68383-6] Goal Plan of Care Note [code = 93794-6] Goal Plan of Care Note [code = 68597-9] Goal Plan of Care Note [code = 31998-5] Goal Plan of Care Note [code = 94868-7] Goal Plan of Care Note [code = 97642-5] Goal Plan of Care Note [code = 56033-6] Goal Plan of Care Note [code = 91235-3] Goal Plan of Care Note [code = 90876-1] Goal Plan of Care Note [code = 92583-1] Goal Plan of Care Note [code = 37600-6] Goal Plan of Care Note [code = 00707-1] Goal Plan of Care Note [code = 93905-9] Goal Plan of Care Note [code = 11044-8] Goal Plan of Care Note [code = 09044-6] Goal Plan of Care Note [code = 80909-7] Goal Plan of Care Note [code = 96318-4] Goal Plan of Care Note [code = 86483-2] Goal Plan of Care Note [code = 56519-8] Goal Plan of Care Note [code = 53913-6] Goal Plan of Care Note [code = 89897-1] Goal Plan of Care Note [code = 90631-9] Goal Plan of Care Note [code = 80000-8] Goal Plan of Care Note [code = 07721-6] Goal Plan of Care Note [code = 26722-4] Goal Plan of Care Note [code = 41033-4] Goal Plan of Care Note [code = 46834-4] Goal Plan of Care Note [code = 64641-0] Goal Plan of Care Note [code = 26690-3] Goal Plan of Care Note [code = 11774-3] Goal Plan of Care Note [code = 18100-1] Goal Plan of Care Note [code = 28889-4] Goal Plan of Care Note [code = 90264-9] Goal Plan of Care Note [code = 77551-0] Goal Plan of Care Note [code = 03506-1] Goal Plan of Care Note [code = 09250-1] Goal Plan of Care Note [code = 47392-1] Goal Plan of Care Note [code = 76713-8] Goal Plan of Care Note [code = 93032-0] Goal Plan of Care Note [code = 51995-4] Goal Plan of Care Note [code = 19930-0] Goal Plan of Care Note [code = 88697-5] Goal Plan of Care Note [code = 00532-8] Goal Plan of Care Note [code = 85856-4] Goal Plan of Care Note [code = 93252-7] Goal Plan of Care Note [code = 96142-6] Goal Plan of Care Note [code = 44641-6] Goal Plan of Care Note [code = 37027-3] Goal Plan of Care Note [code = 71545-6] Goal Plan of Care Note [code = 78296-8] Goal Plan of Care Note [code = 52697-9] Goal Plan of Care Note [code = 24499-4] Goal Plan of Care Note [code = 75804-0] Goal Plan of Care Note [code = 87697-6] Goal Plan of Care Note [code = 99495-1] Goal Plan of Care Note [code = 05322-0] Goal Plan of Care Note [code = 09891-2] Goal Plan of Care Note [code = 00045-2] Goal Plan of Care Note [code = 57908-9] Goal Plan of Care Note [code = 74171-1] Goal Plan of Care Note [code = 79785-5] Goal Plan of Care Note [code = 85893-0] Goal Plan of Care Note [code = 67889-9] Goal Plan of Care Note [code = 46308-7] Goal Plan of Care Note [code = 61057-8] Goal Plan of Care Note [code = 16698-1] Goal Plan of Care Note [code = 31438-5] Goal Plan of Care Note [code = 61993-1] Goal Plan of Care Note [code = 78384-1] Goal Plan of Care Note [code = 06689-1] Goal Plan of Care Note [code = 42899-3] Goal Plan of Care Note [code = 77604-2] Goal Plan of Care Note [code = 54329-0] Goal Plan of Care Note [code = 13252-7] Goal Plan of Care Note [code = 39826-7] Goal Plan of Care Note [code = 02327-9] Goal Plan of Care Note [code = 45131-4] Goal Plan of Care Note [code = 36917-6] Goal Plan of Care Note [code = 85973-8] Goal Plan of Care Note [code = 86583-6] Goal Plan of Care Note [code = 01046-1] Goal Plan of Care Note [code = 62118-2] Goal Plan of Care Note [code = 97707-5] Goal Plan of Care Note [code = 43538-8] Goal Plan of Care Note [code = 34408-4] Goal Plan of Care Note [code = 28938-7] Goal Plan of Care Note [code = 06312-7] Goal Plan of Care Note [code = 08911-3] Goal Plan of Care Note [code = 54250-7] Goal Plan of Care Note [code = 68205-5] Goal Plan of Care Note [code = 36977-8] Goal Plan of Care Note [code = 05347-3] Goal Plan of Care Note [code = 08515-1] Goal Plan of Care Note [code = 70519-0] Goal Plan of Care Note [code = 78365-9] Goal Plan of Care Note [code = 91498-0] Goal Plan of Care Note [code = 82411-9] Goal Plan of Care Note [code = 35979-2] Goal Plan of Care Note [code = 07020-9] Goal Plan of Care Note [code = 11811-4] Goal Plan of Care Note [code = 29031-9] Goal Plan of Care Note [code = 02438-4] Goal Plan of Care Note [code = 85957-6] Goal Plan of Care Note [code = 34939-0] Goal Plan of Care Note [code = 70206-7] Goal Plan of Care Note [code = 66879-9] Goal Plan of Care Note [code = 54901-3] Goal Plan of Care Note [code = 05425-8] Goal Plan of Care Note [code = 65146-6] Goal Plan of Care Note [code = 91777-4] Goal Plan of Care Note [code = 79332-0] Goal Plan of Care Note [code = 94256-3] Goal Plan of Care Note [code = 23012-5] Goal Plan of Care Note [code = 37427-4] Goal Plan of Care Note [code = 54799-4] Goal Plan of Care Note [code = 97691-2] Encounters Start End Encounter Admission Attending Care Care Encounter Source Date/Time Date/Time Type Type Clinicians Facility Department ID 2022-04-01 Outpatient 3 [id number] [facility] RE[facility] [id number] [facility] 15:21:07 [facility] [place] 2022-03-31 Outpatient 3 763025 ENC[facility] REF [id number] [facility] 14:48:02 [facility] [place] 2022-03-25 Outpatient 3 [id number] ENCPL REF [address] [facility] 10:48:24 [facility] [place] 2021-02-05 Outpatient BHARAT, [facility] Surgery [id number] SLE 05:27:44 IRMA 2021-02-04 Outpatient ALAM, [facility] Surgery [id number] SLE 23:01:57 MAHBOOB 2022-06-09 2022-06-09 Outpatient Rayne FERNANDEZ [facility] [id number] Univers 13:30:00 13:30:00 JOSELUIS [facility] 2022-04-23 2022-04-23 Outpatient CASS ODELL 67568-0 022 [place] 11:12:51 11:12:51 1222 F Martínez 2022-04-23 2022-04-23 Outpatient [id number]- [id number] 574ke6-5 00:00:00 00:00:00 Visit 8o79-873q c46-694w-1 -8818-496 818-352495 0452432w3 6681f3 2022-04-22 2022-04-22 Outpatient SFA SFA 73284-2 022 [place] 11:56:37 11:56:37 1221 F Martínez 2022-04-21 2022-04-21 Outpatient KEKE RODRIGUEZ ENCCLR ENCCLR [id number] ENCCLR 00:00:00 00:00:00 ADMISSION VERONICA JACINTO EMMANUEL 2022-04-20 2022-04-20 Outpatient SFA SFA 14874-1 022 [place] 13:44:26 13:44:26 1219 F Martínez 2022-04-20 2022-04-20 Outpatient sq68402v- [id number] fa 73147d-9 00:00:00 00:00:00 Visit 868d-4ba4 68d-4ba4-8 -857d-890 57d-8900b2 3q926684f 08309q 2022-04-07 2022-04-17 Inpatient 3 [facility] ENCPL OT 5814 [facility] 18:25:00 16:40:00 hez, 1206 [facility] itation [place] 2022-03-17 2022-03-17 Outpatient SFA SFA 42141-6 022 [place] 09:09:19 09:09:19 1115 F Martínez 2022-03-17 2022-03-17 Outpatient 41sh767t- [id number] 81 hn857q-l 00:00:00 00:00:00 Visit z154-6574 106-4636-b -b0qm-353 5be-547ae2 al765ccq2 86dad8 2022-03-04 2022-03-04 Outpatient SFA SFA 53318-9 022 [place] 13:56:07 13:56:07 1102 F Martínez 2022-03-04 2022-03-04 Outpatient h39771sf- [id number] c2 7246be-9 00:00:00 00:00:00 Visit 9529-42f7 529-42f7-a -bv13-vy8 e53-jq788i 27g9bc6f1 5cb7c5 2022-02-24 2022-02-24 Abstract [facility] [id number] 00:00:00 00:00:00 [facility] 2022-02-24 2022-02-[address] [facility] [id number] 00:00:00 00:00:00 [facility] 2022-02-17 2022-02-17 Outpatient [facility] 19733-7 022 [place] 14:09:24 14:09:24 1018 F Martínez 2022-02-17 2022-02-17 Outpatient 04rd379a- [id number] ga044q-h 00:00:00 00:00:00 Visit x24j-54t3 39e-47c5-b -i8t0-4wi 3u0-1rlr5a l4n582049 427603 8005-10-04 2022-02-03 Outpatient [facility] SFA 67344-0 022 [place] 13:41:10 13:41:10 1004 F Martínez 2022-02-03 2022-02-03 Outpatient [id number] 889836-4 00:00:00 00:00:00 Visit 4378-45d4 378-45d4-b -qb7c-920 b2p-9168j9 8n78823di 0427fc 2021-12-23 2021-12-23 Familia Fernandez [facility] 1.2.574.960 [id number] Univers 00:00:00 00:00:00 [facility] 350.1.13.10 [facility] 4.2.7.2.686 Tony as CAR?BLEA [phone] [address] MEDICAL OFFICE BUILDING 2021-12-04 2021-12-04 Outpatient 87270m11- [id number] 20 126y65-4 00:00:00 00:00:00 Visit 58e3-1c96 1y2-6u28-1 -93r9-q5b 2l9-o2ggy6 zt2068k34 255c45 2021-12-02 2021-12-02 Outpatient R KHOA [facility] [id number] Univers 16:00:00 16:00:00 [facility] 2021-12-02 2021-12-02 [facility], Ang - Db [facility] 1.2.840.1 14 [id number] Univers 15:15:00 15:16:31 Visit [place] [address]..13.10 ity of [place] 4.2.7.2.686 Tony as CAR?BLEA [id number] [facility] OFFICE [facility] 2021-12-02 2021-12-02 [facility] [id number] Univers 14:30:00 14:57:05 [facility] 2021-12-02 2021-12-02 Office [facility] 1.2.840.114 [id number] Univers 14:30:00 14:57:05 Visit [facility] 350..13.10 it y of [place] 4.2.7.2.686 Tony as CAR?BLEA [id number] [address] 2021-12-02 2021-12-02 Outpatient [id number]- [id number] 87 6e1378-8 00:00:00 00:00:00 Visit 3mm8-4274 db2-4873-a -u3w2-820 7q9-5630k0 9s13i64q5 1f79f2 2021-11-26 2021-11-26 [facility] [id number] Univers 14:00:00 14:00:00 [facility] 2021-10-21 2021-10-21 Outpatient [facility] [id number] Univers 14:30:00 14:30:00 [facility] 2021-07-29 2021-07-29 [facility]phone [facility] 1.2.023.670 [id number] Univers 00:00:00 00:00:00 [place] [address]..13.10 it y of [place] 4.2.7.2.686 Tony as CAR?BLEA [id number] [address] 2021-07-15 2021-07-15 [facility] [id number] Univers 09:30:00 10:12:40 JOSELUIS ity of [facility] 2021-07-15 2021-07-15 Office Fernandez, [facility] 1.2.840.114 [id number] Univers 09:30:00 10:12:40 Visit [facility] 350.1.13.10 it y of [place] 4.2.7.2.686 Tony as CAR?BLEA [id number] Vt gunnerjanelle GILL [address] [place] [address] MEDICAL OFFICE BUILDING 2021-03-06 2021-03-06 [facility] Radiology [facility] 1.2.840.114 [id number] Univers 12:24:35 23:59:00 Encounter [place] 350.1.13.10 ity of [place] 4.2.7.2.686 [place] [id number] [address] 2021-03-06 2021-03-06 [facility] Radiology [facility] 1.2.840.114 [id number] Univers 12:23:40 12:23:40 Encounter [place] 350.1.13.10 ity of [place] 4.2.7.2.686 [facility] [id number] [address] 2021-03-06 2021-03-06 Outpatient R RADIOLOGY [facility] [id number] Univers 12:23:40 12:23:40 ity of [facility] 2021-03-06 2021-03-06 Outpatient R RADIOLOGY [facility] [id number] Univers 12:23:40 12:23:40 ity of [facility] 2021-02-27 2021-02-27 Outpatient R RADIOLOGY [facility] [id number] Univers 00:00:00 00:00:00 ity of [facility] 2021-02-27 2021-02-27 Outpatient R RADIOLOGY [facility] [id number] Univers 00:00:00 00:00:00 ity of [facility] 2021-02-13 2021-02-[address] [facility] [id number] [facility] [address] 00:00:00 00:00:00 elba Anton [facility] 2021-02-03 2021-02-03 Orders Doctor DECKER 1.2.840.114 [id number] Univers 00:00:00 00:00:00 Only Unassigned, RONNY 350.1.13.10 ity Gonzalez [facility] 4.2.7.2.686 Tony as [phone] [address] 2020-11-22 2020-11-22 Outpatient [facility] [id number] Univers 13:00:00 13:00:00 SAM stewart [facility] 2020-10-08 2020-10-08 [facility]phone [facility] 1.2.840.114 [id number] 00:00:00 00:00:00 Sam H Buddy 350.1.13.10 [place] 4.2.7.2.686 Professio [id number] nal 220 [facility] 2020-10-07 2020-10-07 Orders Doctor DECKER 1.2.840.114 [id number] 00:00:00 00:00:00 Only Unassigned, RONNY 350.1.13.10 [facility] 4.2.7.2.686 [id number] [facility] 2020-10-04 2020-10-04 Outpatient R [facility] [id number] Univers 14:00:00 14:00:00 SAM stewart [facility] 2020-09-19 2020-09-19 Outpatient [facility] [id number] Univers 11:00:00 11:00:00 DEAN jose [facility] 2020-09-10 2020-09-10 Outpatient [facility] [id number] Univers 10:00:00 10:00:00 DEAN jose [facility] 2020-08-20 2020-08-20 Office [facility] 1.2.840.114 [id number] 13:15:09 13:42:21 Visit Dean Doherty 350.1.13.10 [place] 4.2.7.2.686 Professio [id number] nal 059 [facility] 2020-08-20 2020-08-20 Outpatient [facility] [id number] Univers 13:20:00 13:20:00 DEAN sheffield [facility] 2019-12-14 2019-12-14 Outpatient [facility] [id number] [facility] 00:00:00 00:00:00 2019-11-14 2019-11-14 Outpatient NAKITA GIPSON, [facility] [id number] [facility] 00:00:00 00:00:00 HUNTER 2019-11-14 2019-11-14 Outpatient [facility] [id number] [facility] 00:00:00 00:00:00 2019-11-14 2019-11-14 Outpatient EL [facility] [id number] [facility] 00:00:00 00:00:00 2019-10-31 2019-10-31 Outpatient [facility]H [facility] [id number] [facility] 00:00:00 00:00:00 2019-10-31 2019-10-31 Outpatient SLEH [facility] [id number] 320 [facility] 00:00:00 00:00:00 2019-10-17 2019-10-17 Outpatient [facility]H SLE[facility] [id number] [facility] 00:00:00 00:00:00 2019-10-17 2019-10-17 Outpatient [facility] [id number] [facility] 00:00:00 00:00:00 2019-07-13 2019-07-13 Outpatient [facility] [id number] 2-2 [facility] 00:00:00 00:00:00 [id number] 2019-06-15 2019-06-15 Outpatient [facility] [id number] 2-2 [facility] 00:00:00 00:00:00 [id number] Results Test Description Test Time Test Comments Results Result Comments Source TSH, THIRD GENERATION 2022-04-23 06:32:46 Test Item Value Reference Range Interpretation Comme nts TSH, THIRD GENERATION (test code = 2821) >100.000 UIU/ML 0.400-4.10 0 H PSA, [id number] 06:32:46 Test Item Value Reference Range Interpretation Comments PSA, TOTAL 0.57 NG/ML See_Comment NOTE: Methodol ogy is Ezio (test code = Radhika Electroch emiluminescence 2606) Immunoassay tra ceable to WHO reference stand rea 96/760. UNLESS OTHERWIS E INDICATED, ALL TESTING PERFORM [facility] [address] [place] [id number] LABORATORY DIRE CTOR: LATOYA MCCALL M.D. CLIA NUMBER [id number] [facility] [place]. [id number] [A utomated message] The sy stem which generated this result transmitted ref erence range: <=4.00. The ref erence range was not used to int erpret this result as ryne l/abnormal. COMPREHENSIVE METABOLIC [id number] 04:57:27 Test Item Value Reference Range Interpretation Comments GLUCOSE (test code = 204 MG/DL 70-99 H 2216) BUN (test code = 17 MG/DL 6-20 2207) CREATININE (test 5.58 MG/DL 0.80-1.40 H code = 221) eGFR (2020 CKD-EPI) 11 ML/MIN/1.73 >60 L (test code = 21672) CALC BUN/CREAT (test 3 RATIO 6-28 L code = 2235) SODIUM (test code = 143 MEQ/L 623-643 7815) POTASSIUM (test code 3.8 MEQ/L 3.5-5.4 = 2227) CHLORIDE (test code 98 MEQ/L 95-107 = 2214) CARBON DIOXIDE (test 29 MEQ/L 19-31 code = 2206) CALCIUM (test code = 8.7 MG/DL 8.5-10.5 2208) PROTEIN, TOTAL (test 7.0 G/DL 6.1-8.3 code = 2229) ALBUMIN (test code = 4.4 G/DL 3.5-5.2 2200) CALC GLOBULIN (test 2.6 G/DL 1.9-3.7 code = 2240) CALC A/G RATIO (test 1.7 RATIO 1.0-2.6 code = 2234) BILIRUBIN, TOTAL <0.2 MG/DL See_Comment [Automated message] (test code = 2207) The syste m which generated this result transmit kailey reference range : <=1.2. The refe rence range was not u sed to interpret th is result as normal/abnormal . ALKALINE PHOSPHATASE 72 U/L 40-123 (test code = 2204) AST (test code = 18 U/L 9-50 2217) ALT (test code = 15 U/L 5-50 2218) HEMOGLOBIN [id number] 03:24:27 Test Item Value Reference Range Interpretation Comments HEMOGLOBIN A1c (test code = 59730) 5.8 % 4.2-5.6 H CBC W/AUTO DIFF WITH [id number] 03:19:43 Test Item Value Reference Range Interpretation Comments WBC (test code = 8.5 K/UL 3.5-11.0 1001) RBC (test code = 3.24 M/UL 4.50-6.10 L 1002) HEMOGLOBIN (test code 10.2 G/DL 13.5-17.0 L = 1003) HEMATOCRIT (test code 30.6 % 40.0-51.0 L = 1004) MCV (test code = 94.4 fL 80.0-99.0 1005) MCH (test code = 31.5 PG 25.0-33.0 1006) MCHC (test code = 33.3 G/DL 31.0-36.0 1007) RDW (test code = 14.3 % 11.5-15.0 1038) NEUTROPHILS (test 81.0 % code = 1008) LYMPHOCYTES (test 10.2 % code = 1010) MONOCYTES (test code 4.7 % = 1011) EOSINOPHILS (test 2.8 % code = 1012) BASOPHILS (test code 0.8 % = 1013) IMMATURE GRANULOCYTES 0.5 % (test code = 1036) NUCLEATED RBCS (test 0.0 /100 WBC'S See_Comment [Aut omated code = 1065) message] The sy stem which generated this result transmitted reference range : 0.0. The refere nce range was not u sed to interpret th is result as normal/abnormal . PLATELET COUNT (test 367 K/UL 130-400 code = 1015) ABSOLUTE NEUTROPHILS 6.89 K/UL 1.50-7.50 (test code = 1066) ABSOLUTE LYMPHOCYTES 0.87 K/UL 1.00-4.00 L (test code = 1067) ABSOLUTE MONOCYTES 0.40 K/UL 0.20-1.00 (test code = 1068) ABSOLUTE EOSINOPHILS 0.24 K/UL 0.00-0.50 (test code = 1040) ABSOLUTE BASOPHILS 0.07 K/UL 0.00-0.20 (test code = 1069) ABS IMMATURE 0.04 K/UL 0.00-0.10 GRANULOCYTES (test code = 1020) ABS NUCLEATED RBCS 0.00 K/UL 0.00-0.11 (test code = 69862) CBC W/AUTO [id number] 00:00:00 Test Item Value Reference Range Interpretation Comments WBC (test code = 1001) 8.5 K/UL RBC (test code = 1002) 3.24 M/UL HEMOGLOBIN (test code = 1003) 10.2 G/DL HEMATOCRIT (test code = 1004) 30.6 % MCV (test code = 1005) 94.4 fL MCH (test code = 1006) 31.5 PG MCHC (test code = 1007) 33.3 G/DL RDW (test code = 1038) 14.3 % NEUTROPHILS (test code = 1008) 81.0 % LYMPHOCYTES (test code = 1010) 10.2 % MONOCYTES (test code = 1011) 4.7 % EOSINOPHILS (test code = 1012) 2.8 % BASOPHILS (test code = 1013) 0.8 % IMMATURE GRANULOCYTES (test 0.5 % code = 1036) NUCLEATED RBCS (test code = 0.0 /100WBC'S 1065) PLATELET COUNT (test code = 367 K/UL 1015) ABSOLUTE NEUTROPHILS (test code 6.89 K/UL = 1066) ABSOLUTE LYMPHOCYTES (test code 0.87 K/UL = 1067) ABSOLUTE MONOCYTES (test code = 0.40 K/UL 1068) ABSOLUTE EOSINOPHILS (test code 0.24 K/UL = 1040) ABSOLUTE BASOPHILS (test code = 0.07 K/UL 1069) ABS IMMATURE GRANULOCYTES (test 0.04 K/UL code = 1020) ABS NUCLEATED RBCS (test code = 0.00 K/UL 94545) CBC W/AUTO [id number] 00:00:00 Test Item Value Reference Range Interpretation Comments WBC (test code = 1001) 8.5 K/UL RBC (test code = 1002) 3.24 M/UL HEMOGLOBIN (test code = 1003) 10.2 G/DL HEMATOCRIT (test code = 1004) 30.6 % MCV (test code = 1005) 94.4 fL MCH (test code = 1006) 31.5 PG MCHC (test code = 1007) 33.3 G/DL RDW (test code = 1038) 14.3 % NEUTROPHILS (test code = 1008) 81.0 % LYMPHOCYTES (test code = 1010) 10.2 % MONOCYTES (test code = 1011) 4.7 % EOSINOPHILS (test code = 1012) 2.8 % BASOPHILS (test code = 1013) 0.8 % IMMATURE GRANULOCYTES (test 0.5 % code = 1036) NUCLEATED RBCS (test code = 0.0 /100WBC'S 1065) PLATELET COUNT (test code = 367 K/UL 1015) ABSOLUTE NEUTROPHILS (test code 6.89 K/UL = 1066) ABSOLUTE LYMPHOCYTES (test code 0.87 K/UL = 1067) ABSOLUTE MONOCYTES (test code = 0.40 K/UL 1068) ABSOLUTE EOSINOPHILS (test code 0.24 K/UL = 1040) ABSOLUTE BASOPHILS (test code = 0.07 K/UL 1069) ABS IMMATURE GRANULOCYTES (test 0.04 K/UL code = 1020) ABS NUCLEATED RBCS (test code = 0.00 K/UL 02182) CBC W/AUTO [id number] 00:00:00 Test Item Value Reference Range Interpretation Comments WBC (test code = 1001) 8.5 K/UL RBC (test code = 1002) 3.24 M/UL HEMOGLOBIN (test code = 1003) 10.2 G/DL HEMATOCRIT (test code = 1004) 30.6 % MCV (test code = 1005) 94.4 fL MCH (test code = 1006) 31.5 PG MCHC (test code = 1007) 33.3 G/DL RDW (test code = 1038) 14.3 % NEUTROPHILS (test code = 1008) 81.0 % LYMPHOCYTES (test code = 1010) 10.2 % MONOCYTES (test code = 1011) 4.7 % EOSINOPHILS (test code = 1012) 2.8 % BASOPHILS (test code = 1013) 0.8 % IMMATURE GRANULOCYTES (test 0.5 % code = 1036) NUCLEATED RBCS (test code = 0.0 /100WBC'S 1065) PLATELET COUNT (test code = 367 K/UL 1015) ABSOLUTE NEUTROPHILS (test code 6.89 K/UL = 1066) ABSOLUTE LYMPHOCYTES (test code 0.87 K/UL = 1067) ABSOLUTE MONOCYTES (test code = 0.40 K/UL 1068) ABSOLUTE EOSINOPHILS (test code 0.24 K/UL = 1040) ABSOLUTE BASOPHILS (test code = 0.07 K/UL 1069) ABS IMMATURE GRANULOCYTES (test 0.04 K/UL code = 1020) ABS NUCLEATED RBCS (test code = 0.00 K/UL 08993) HEMOGLOBIN [id number] 00:00:00 Test Item Value Reference Range Interpretation Comments HEMOGLOBIN A1c (test code = 17438) 5.8 % HEMOGLOBIN [id number] 00:00:00 Test Item Value Reference Range Interpretation Comments HEMOGLOBIN A1c (test code = 10462) 5.8 % HEMOGLOBIN [id number] 00:00:00 Test Item Value Reference Range Interpretation Comments HEMOGLOBIN A1c (test code = 27320) 5.8 % COMPREHENSIVE METABOLIC [id number] 00:00:00 Test Item Value Reference Range Interpretation Comments GLUCOSE (test code = 2217) 204 MG/DL BUN (test code = 2208) 17 MG/DL CREATININE (test code = 2214) 5.58 MG/DL eGFR (2020 CKD-EPI) (test code 11 ML/MIN/1.73 = 19981) CALC BUN/CREAT (test code = 3 RATIO 2235) SODIUM (test code = 2231) 143 MEQ/L POTASSIUM (test code = 2228) 3.8 MEQ/L CHLORIDE (test code = 2215) 98 MEQ/L CARBON DIOXIDE (test code = 29 MEQ/L 2205) CALCIUM (test code = 2209) 8.7 MG/DL PROTEIN, TOTAL (test code = 7.0 G/DL 2228) ALBUMIN (test code = 2201) 4.4 G/DL CALC GLOBULIN (test code = 2.6 G/DL 0) CALC A/G RATIO (test code = 1.7 RATIO 2234) BILIRUBIN, TOTAL (test code = <0.2 MG/DL 2206) ALKALINE PHOSPHATASE (test 72 U/L code = 2204) AST (test code = 2218) 18 U/L ALT (test code = 2219) 15 U/L COMPREHENSIVE METABOLIC [id number] 00:00:00 Test Item Value Reference Range Interpretation Comments GLUCOSE (test code = 2217) 204 MG/DL BUN (test code = 2208) 17 MG/DL CREATININE (test code = 2214) 5.58 MG/DL eGFR (2020 CKD-EPI) (test code 11 ML/MIN/1.73 = 86558) CALC BUN/CREAT (test code = 3 RATIO 2235) SODIUM (test code = 2231) 143 MEQ/L POTASSIUM (test code = 2228) 3.8 MEQ/L CHLORIDE (test code = 2215) 98 MEQ/L CARBON DIOXIDE (test code = 29 MEQ/L 2205) CALCIUM (test code = 2209) 8.7 MG/DL PROTEIN, TOTAL (test code = 7.0 G/DL 2228) ALBUMIN (test code = 2201) 4.4 G/DL CALC GLOBULIN (test code = 2.6 G/DL 2239) CALC A/G RATIO (test code = 1.7 RATIO 2233) BILIRUBIN, TOTAL (test code = <0.2 MG/DL 2206) ALKALINE PHOSPHATASE (test 72 U/L code = 220) AST (test code = 2218) 18 U/L ALT (test code = 2219) 15 U/L TSH, THIRD [id number] 00:00:00 Test Item Value Reference Range Interpretation Comments TSH, THIRD GENERATION (test >100.000 UIU/ML code = 2821) TSH, THIRD [id number] 00:00:00 Test Item Value Reference Range Interpretation Comments TSH, THIRD GENERATION (test >100.000 UIU/ML code = 2821) TSH, THIRD [id number] 00:00:00 Test Item Value Reference Range Interpretation Comments TSH, THIRD GENERATION (test >100.000 UIU/ML code = 2821) PSA, [id number] 00:00:00 Test Item Value Reference Range Interpretation Comments PSA, TOTAL (test code = 2606) 0.57 NG/ML PSA, [id number] 00:00:00 Test Item Value Reference Range Interpretation Comments PSA, TOTAL (test code = 2606) 0.57 NG/ML PSA, [id number] 00:00:00 Test Item Value Reference Range Interpretation Comments PSA, TOTAL (test code = 2606) 0.57 NG/ML CBC W/AUTO DIFF WITH [id number] 09:42:23 Test Item Value Reference Range Interpretation Comments WBC (test code = 10.4 K/UL 3.5-11.0 1001) RBC (test code = 3.80 M/UL 4.50-6.10 L 1002) HEMOGLOBIN (test code 12.3 G/DL 13.5-17.0 L = 1003) HEMATOCRIT (test code 34.1 % 40.0-51.0 L = 1004) MCV (test code = 89.7 fL 80.0-99.0 1005) MCH (test code = 32.4 PG 25.0-33.0 1006) MCHC (test code = 36.1 G/DL 31.0-36.0 H 1007) RDW (test code = 13.6 % 11.5-15.0 1038) NEUTROPHILS (test 71.5 % code = 1008) LYMPHOCYTES (test 19.4 % code = 1010) MONOCYTES (test code 6.2 % = 1011) EOSINOPHILS (test 1.8 % code = 1012) BASOPHILS (test code 0.7 % = 1013) IMMATURE GRANULOCYTES 0.4 % (test code = 1036) NUCLEATED RBCS (test 0.0 /100 WBC'S See_Comment [Aut omated code = 1065) message] The sy stem which generated this result transmitted reference range : 0.0. The refere nce range was not u sed to interpret th is result as normal/abnormal . PLATELET COUNT (test 332 K/UL 130-400 code = 1015) ABSOLUTE NEUTROPHILS 7.46 K/UL 1.50-7.50 (test code = 1066) ABSOLUTE LYMPHOCYTES 2.03 K/UL 1.00-4.00 (test code = 1067) ABSOLUTE MONOCYTES 0.65 K/UL 0.20-1.00 (test code = 1068) ABSOLUTE EOSINOPHILS 0.19 K/UL 0.00-0.50 (test code = 1040) ABSOLUTE BASOPHILS 0.07 K/UL 0.00-0.20 (test code = 1069) ABS IMMATURE 0.04 K/UL 0.00-0.10 GRANULOCYTES (test code = 1020) ABS NUCLEATED RBCS 0.00 K/UL 0.00-0.11 (test code = 17490) HEMOGLOBIN [id number] 09:27:39 Test Item Value Reference Range Interpretation Comments HEMOGLOBIN A1c (test code = 93008) 6.2 % 4.2-5.6 H TSH, THIRD [id number] 06:43:39 Test Item Value Reference Range Interpretation Comments TSH, THIRD GENERATION (test 82.000 UIU/ML 0.400-4.100 H code = 2821) HIV 1/2 4TH GEN, RFLX [id number] 05:21:13 Test Item Value Reference Range Interpretation Comments HIV 1/2 4TH GEN, RFLX CONF (test NON-REACTIVE NON-REACTIVE code = 3514) HEPATITIS PANEL, [id number] 05:21:13 Test Item Value Reference Range Interpretation Comments HEPATITIS A IgM (test NON-REACTIVE NON-REACTIVE code = 42081) HEPATITIS B CORE IgM NON-REACTIVE NON-REACTIVE (test code = 4644) HEPATITIS B SURF AG NON-REACTIVE NON-REACTIVE (test code = 2739) HEPATITIS C ANTIBODY NON-REACTIVE NON-REACTIVE (test code = 4675) INTERPRETATION (NOTE) Hepatitis A HEPATITIS A: (test serology shows no code = 2552) evidence of acu te hepatitis A. INTERPRETATION (NOTE) Hepatitis B HEPATITIS B: (test serology shows no code = 25684) evidence of ac marty hepatitis B and no indication of exposure to hepatitis B vir us in the previous si xto eight months. INTERPRETATION (NOTE) Hepatitis C HEPATITIS C: (test serology shows no code = 23155) evidence of ex posure to hepatitisC v irus at this time. I t can take up to 12 m onths after exposure tothe hepatitis C vir us for antibodies to become detectab le in the blood in ce rtain patients. UNLES S OTHERWISE INDIC ATED, ALL TESTING PERFORMED [facility], [address] DIRECTOR: LATOYA MCCALL M.D. CLIA NUMBER [id number] [place] [id number] LIPID [id number] 03:30:59 Test Item Value Reference Range Interpretation [...] MOREINFORMATION , SEE CLIENT ANNOUNCE MENT AT [email or web address] CalcLDL-C RISK RATIO LDL/HDL (NOTE) RATIO <3.55 UNABLE T O CALCULATE (test code = 223) COMPREHENSIVE METABOLIC [id number] 03:30:59 Test Item Value Reference Range Interpretation Comments GLUCOSE (test code = 117 MG/DL 70-99 H 2216) BUN (test code = 54 MG/DL 6-20 H 2207) CREATININE (test 11.27 MG/DL 0.80-1.40 H code = 221) eGFR (2020 CKD-EPI) 5 ML/MIN/1.73 >60 L (test code = 00429) CALC BUN/CREAT (test 5 RATIO 6-28 L code = 2235) SODIUM (test code = 139 MEQ/L 363-640 4709) POTASSIUM (test code 4.2 MEQ/L 3.5-5.4 = 2227) CHLORIDE (test code 95 MEQ/L 95-107 = 2214) CARBON DIOXIDE (test 23 MEQ/L 19-31 code = 2206) CALCIUM (test code = 8.8 MG/DL 8.5-10.5 2208) PROTEIN, TOTAL (test 8.5 G/DL 6.1-8.3 H code = 2229) ALBUMIN (test code = 5.3 G/DL 3.5-5.2 H 2200) CALC GLOBULIN (test 3.2 G/DL 1.9-3.7 code = 2240) CALC A/G RATIO (test 1.7 RATIO 1.0-2.6 code = 2234) BILIRUBIN, TOTAL 0.3 MG/DL See_Comment [Automated message] (test code = 2207) The syste m which generated this result transmit kailey reference range : <=1.2. The refe rence range was not u sed to interpret th is result as normal/abnormal . ALKALINE PHOSPHATASE 70 U/L 40-123 (test code = 2204) AST (test code = 6 U/L 9-50 L 2217) ALT (test code = 8 U/L 5-50 2218) CBC W/AUTO [id number] 00:00:00 Test Item Value Reference Range Interpretation [...] NUCLEATED RBCS (test code = 0.00 K/UL 29038) CBC W/AUTO [id number] 00:00:00 Test Item Value Reference Range Interpretation [...] NUCLEATED RBCS (test code = 0.00 K/UL 10970) CBC W/AUTO [id number] 00:00:00 Test Item Value Reference Range Interpretation [...] NUCLEATED RBCS (test code = 0.00 K/UL 81607) HEMOGLOBIN [id number] 00:00:00 Test Item Value Reference Range Interpretation Comments HEMOGLOBIN A1c (test code = 32080) 6.2 % HEMOGLOBIN [id number] 00:00:00 Test Item Value Reference Range Interpretation Comments HEMOGLOBIN A1c (test code = 60279) 6.2 % HEMOGLOBIN [id number] 00:00:00 Test Item Value Reference Range Interpretation Comments HEMOGLOBIN A1c (test code = 21400) 6.2 % LIPID [id number] 00:00:00 Test Item Value Reference Range Interpretation Comments CHOLESTEROL (test code = 2210) 196 MG/DL TRIGLYCERIDES (test code = 2232) 486 MG/DL HDL CHOLESTEROL (test code = 44 MG/DL 2220) CALC LDL CHOL (test code = 2237) (NOTE) MG/DL RISK RATIO LDL/HDL (test code = (NOTE) RATIO 2238) LIPID [id number] 00:00:00 Test Item Value Reference Range Interpretation Comments CHOLESTEROL (test code = 2210) 196 MG/DL TRIGLYCERIDES (test code = 2232) 486 MG/DL HDL CHOLESTEROL (test code = 44 MG/DL 2220) CALC LDL CHOL (test code = 2237) (NOTE) MG/DL RISK RATIO LDL/HDL (test code = (NOTE) RATIO 2238) COMPREHENSIVE METABOLIC [id number] 00:00:00 Test Item Value Reference Range Interpretation Comments GLUCOSE (test code = 2217) 117 MG/DL BUN (test code = 2208) 54 MG/DL CREATININE (test code = 2214) 11.27 MG/DL eGFR (2020 CKD-EPI) (test code 5 ML/MIN/1.73 = 49108) CALC BUN/CREAT (test code = 5 RATIO [...] code = 2219) 8 U/L COMPREHENSIVE METABOLIC [id number] 00:00:00 Test Item Value Reference Range Interpretation Comments GLUCOSE (test code = 2217) 117 MG/DL BUN (test code = 2208) 54 MG/DL CREATININE (test code = 2214) 11.27 MG/DL eGFR (2020 CKD-EPI) (test code 5 ML/MIN/1.73 = 83611) CALC BUN/CREAT (test code = 5 RATIO [...] ALT (test code = 2219) 8 U/L [id number] 00:00:00 Test Item Value Reference Range Interpretation Comments TSH, THIRD GENERATION (test 82.000 UIU/ML code = 2821) [id number] 00:00:00 Test Item Value Reference Range Interpretation Comments TSH, THIRD GENERATION (test 82.000 UIU/ML code = 2821) [id number] 00:00:00 Test Item Value Reference Range Interpretation Comments TSH, THIRD GENERATION (test 82.000 UIU/ML code = 2821) HIV AB/AG COMBO RFLX [id number] 00:00:00 Test Item Value Reference Range Interpretation Comments HIV 1/2 4TH GEN, RFLX CONF (test NON-REACTIVE code = 3514) HIV AB/AG COMBO RFLX [id number] 00:00:00 Test Item Value Reference Range Interpretation Comments HIV 1/2 4TH GEN, RFLX CONF (test NON-REACTIVE code = 3514) ACUTE HEPATITIS [id number] 00:00:00 Test Item Value Reference Range Interpretation Comments HEPATITIS A IgM (test code = NON-REACTIVE 90304) HEPATITIS B CORE IgM (test code NON-REACTIVE = 4644) HEPATITIS B SURF AG (test code = NON-REACTIVE 2739) HEPATITIS C ANTIBODY (test code NON-REACTIVE = 4675) INTERPRETATION HEPATITIS A: (NOTE) (test code = 2552) INTERPRETATION HEPATITIS B: (NOTE) (test code = 37361) INTERPRETATION HEPATITIS C: (NOTE) (test code = 31593) ACUTE HEPATITIS [id number] 00:00:00 Test Item Value Reference Range Interpretation Comments HEPATITIS A IgM (test code = NON-REACTIVE 35793) HEPATITIS B CORE IgM (test code NON-REACTIVE = 4644) HEPATITIS B SURF AG (test code = NON-REACTIVE 2739) HEPATITIS C ANTIBODY (test code NON-REACTIVE = 4675) INTERPRETATION HEPATITIS A: (NOTE) (test code = 2552) INTERPRETATION HEPATITIS B: (NOTE) (test code = 56508) INTERPRETATION HEPATITIS C: (NOTE) (test code = 81045) CBC W/AUTO [id number] 00:00:00 Test Item Value Reference Range Interpretation [...] NUCLEATED RBCS (test code = 0.00 K/UL 16724) CBC W/AUTO [id number] 00:00:00 Test Item Value Reference Range Interpretation [...] NUCLEATED RBCS (test code = 0.00 K/UL 30788) CBC W/AUTO [id number] 00:00:00 Test Item Value Reference Range Interpretation [...] NUCLEATED RBCS (test code = 0.00 K/UL 46114) HEMOGLOBIN [id number] 00:00:00 Test Item Value Reference Range Interpretation Comments HEMOGLOBIN A1c (test code = 73499) 6.2 % HEMOGLOBIN [id number] 00:00:00 Test Item Value Reference Range Interpretation Comments HEMOGLOBIN A1c (test code = 51450) 6.2 % HEMOGLOBIN [id number] 00:00:00 Test Item Value Reference Range Interpretation Comments HEMOGLOBIN A1c (test code = 21253) 6.2 % LIPID [id number] 00:00:00 Test Item Value Reference Range Interpretation Comments CHOLESTEROL (test code = 2210) 196 MG/DL TRIGLYCERIDES (test code = 2232) 486 MG/DL HDL CHOLESTEROL (test code = 44 MG/DL 2220) CALC LDL CHOL (test code = 2237) (NOTE) MG/DL RISK RATIO LDL/HDL (test code = (NOTE) RATIO 2238) LIPID [id number] 00:00:00 Test Item Value Reference Range Interpretation Comments CHOLESTEROL (test code = 2210) 196 MG/DL TRIGLYCERIDES (test code = 2232) 486 MG/DL HDL CHOLESTEROL (test code = 44 MG/DL 0) CALC LDL CHOL (test code = 2237) (NOTE) MG/DL RISK RATIO LDL/HDL (test code = (NOTE) RATIO 2238) COMPREHENSIVE METABOLIC [id number] 00:00:00 Test Item Value Reference Range Interpretation Comments GLUCOSE (test code = 2217) 117 MG/DL BUN (test code = 2208) 54 MG/DL CREATININE (test code = 2214) 11.27 MG/DL eGFR (2020 CKD-EPI) (test code 5 ML/MIN/1.73 = 05666) CALC BUN/CREAT (test code = 5 RATIO 2235) SODIUM (test code = 2231) 139 MEQ/L POTASSIUM (test code = 2228) 4.2 MEQ/L CHLORIDE (test code = 2215) 95 MEQ/L CARBON DIOXIDE (test code = 23 MEQ/L 220) CALCIUM (test code = 2209) 8.8 MG/DL PROTEIN, TOTAL (test code = 8.5 G/DL 2228) ALBUMIN (test code = 2201) 5.3 G/DL CALC GLOBULIN (test code = 3.2 G/DL 2239) CALC A/G RATIO (test code = 1.7 RATIO 2233) BILIRUBIN, TOTAL (test code = 0.3 MG/DL 2206) ALKALINE PHOSPHATASE (test code 70 U/L = 220) AST (test code = 2218) 6 U/L ALT (test code = 2219) 8 U/L COMPREHENSIVE METABOLIC [id number] 00:00:00 Test Item Value Reference Range Interpretation Comments GLUCOSE (test code = 2217) 117 MG/DL BUN (test code = 2208) 54 MG/DL CREATININE (test code = 2214) 11.27 MG/DL eGFR (2020 CKD-EPI) (test code 5 ML/MIN/1.73 = 37017) CALC BUN/CREAT (test code = 5 RATIO 2235) SODIUM (test code = 2231) 139 MEQ/L POTASSIUM (test code = 2228) 4.2 MEQ/L CHLORIDE (test code = 2215) 95 MEQ/L CARBON DIOXIDE (test code = 23 MEQ/L 220) CALCIUM (test code = 2209) 8.8 MG/DL PROTEIN, TOTAL (test code = 8.5 G/DL 2229) ALBUMIN (test code = 2201) 5.3 G/DL CALC GLOBULIN (test code = 3.2 G/DL 2240) CALC A/G RATIO (test code = 1.7 RATIO 2234) BILIRUBIN, TOTAL (test code = 0.3 MG/DL 2207) ALKALINE PHOSPHATASE (test code 70 U/L = 2204) AST (test code = 2218) 6 U/L ALT (test code = 2219) 8 U/L [id number] 00:00:00 Test Item Value Reference Range Interpretation Comments TSH, THIRD GENERATION (test 82.000 UIU/ML code = 2821) [id number] 00:00:00 Test Item Value Reference Range Interpretation Comments TSH, THIRD GENERATION (test 82.000 UIU/ML code = 2821) [id number] 00:00:00 Test Item Value Reference Range Interpretation Comments TSH, THIRD GENERATION (test 82.000 UIU/ML code = 2821) HIV AB/AG COMBO RFLX [id number] 00:00:00 Test Item Value Reference Range Interpretation Comments HIV 1/2 4TH GEN, RFLX CONF (test NON-REACTIVE code = 3514) HIV AB/AG COMBO RFLX [id number] 00:00:00 Test Item Value Reference Range Interpretation Comments HIV 1/2 4TH GEN, RFLX CONF (test NON-REACTIVE code = 3514) ACUTE HEPATITIS [id number] 00:00:00 Test Item Value Reference Range Interpretation Comments HEPATITIS A IgM (test code = NON-REACTIVE 37091) HEPATITIS B CORE IgM (test code NON-REACTIVE = 4644) HEPATITIS B SURF AG (test code = NON-REACTIVE 2738) HEPATITIS C ANTIBODY (test code NON-REACTIVE = 4675) INTERPRETATION HEPATITIS A: (NOTE) (test code = 2552) INTERPRETATION HEPATITIS B: (NOTE) (test code = 27816) INTERPRETATION HEPATITIS C: (NOTE) (test code = 05529) ACUTE HEPATITIS [id number] 00:00:00 Test Item Value Reference Range Interpretation Comments HEPATITIS A IgM (test code = NON-REACTIVE 37499) HEPATITIS B CORE IgM (test code NON-REACTIVE = 4644) HEPATITIS B SURF AG (test code = NON-REACTIVE 2738) HEPATITIS C ANTIBODY (test code NON-REACTIVE = 4675) INTERPRETATION HEPATITIS A: (NOTE) (test code = 2552) INTERPRETATION HEPATITIS B: (NOTE) (test code = 35142) INTERPRETATION HEPATITIS C: (NOTE) (test code = 76168) CBC W/AUTO [id number] 00:00:00 Test Item Value Reference Range Interpretation [...] NUCLEATED RBCS (test code = 0.00 K/UL 85261) CBC W/AUTO [id number] 00:00:00 Test Item Value Reference Range Interpretation [...] NUCLEATED RBCS (test code = 0.00 K/UL 40472) CBC W/AUTO [id number] 00:00:00 Test Item Value Reference Range Interpretation [...] NUCLEATED RBCS (test code = 0.00 K/UL 50563) CBC W/AUTO [id number] 00:00:00 Test Item Value Reference Range Interpretation [...] NUCLEATED RBCS (test code = 0.00 K/UL 20647) CBC W/AUTO [id number] 00:00:00 Test Item Value Reference Range Interpretation [...] NUCLEATED RBCS (test code = 0.00 K/UL 36521) HEMOGLOBIN [id number] 00:00:00 Test Item Value Reference Range Interpretation Comments HEMOGLOBIN A1c (test code = 44934) 6.2 % HEMOGLOBIN [id number] 00:00:00 Test Item Value Reference Range Interpretation Comments HEMOGLOBIN A1c (test code = 85185) 6.2 % HEMOGLOBIN [id number] 00:00:00 Test Item Value Reference Range Interpretation Comments HEMOGLOBIN A1c (test code = 64241) 6.2 % LIPID [id number] 00:00:00 Test Item Value Reference Range Interpretation Comments CHOLESTEROL (test code = 2210) 196 MG/DL TRIGLYCERIDES (test code = 2232) 486 MG/DL HDL CHOLESTEROL (test code = 44 MG/DL 2220) CALC LDL CHOL (test code = 2237) (NOTE) MG/DL RISK RATIO LDL/HDL (test code = (NOTE) RATIO 2238) LIPID [id number] 00:00:00 Test Item Value Reference Range Interpretation Comments CHOLESTEROL (test code = 2210) 196 MG/DL TRIGLYCERIDES (test code = 2232) 486 MG/DL HDL CHOLESTEROL (test code = 44 MG/DL 2220) CALC LDL CHOL (test code = 2237) (NOTE) MG/DL RISK RATIO LDL/HDL (test code = (NOTE) RATIO 2238) COMPREHENSIVE METABOLIC [id number] 00:00:00 Test Item Value Reference Range Interpretation Comments GLUCOSE (test code = 2217) 117 MG/DL BUN (test code = 2208) 54 MG/DL CREATININE (test code = 2214) 11.27 MG/DL eGFR (2020 CKD-EPI) (test code 5 ML/MIN/1.73 = 26420) CALC BUN/CREAT (test code = 5 RATIO 2235) SODIUM (test code = 2231) 139 MEQ/L POTASSIUM (test code = 2228) 4.2 MEQ/L CHLORIDE (test code = 2215) 95 MEQ/L CARBON DIOXIDE (test code = 23 MEQ/L 220) CALCIUM (test code = 2209) 8.8 MG/DL PROTEIN, TOTAL (test code = 8.5 G/DL 2228) ALBUMIN (test code = 2201) 5.3 G/DL CALC GLOBULIN (test code = 3.2 G/DL 2240) CALC A/G RATIO (test code = 1.7 RATIO 223) BILIRUBIN, TOTAL (test code = 0.3 MG/DL 2206) ALKALINE PHOSPHATASE (test code 70 U/L = 2203) AST (test code = 2218) 6 U/L ALT (test code = 2219) 8 U/L COMPREHENSIVE METABOLIC [id number] 00:00:00 Test Item Value Reference Range Interpretation Comments GLUCOSE (test code = 2217) 117 MG/DL BUN (test code = 2208) 54 MG/DL CREATININE (test code = 2214) 11.27 MG/DL eGFR (2020 CKD-EPI) (test code 5 ML/MIN/1.73 = 42232) CALC BUN/CREAT (test code = 5 RATIO 2235) SODIUM (test code = 2231) 139 MEQ/L POTASSIUM (test code = 2228) 4.2 MEQ/L CHLORIDE (test code = 2215) 95 MEQ/L CARBON DIOXIDE (test code = 23 MEQ/L 2206) CALCIUM (test code = 2209) 8.8 MG/DL PROTEIN, TOTAL (test code = 8.5 G/DL 2228) ALBUMIN (test code = 2201) 5.3 G/DL CALC GLOBULIN (test code = 3.2 G/DL 2240) CALC A/G RATIO (test code = 1.7 RATIO 2234) BILIRUBIN, TOTAL (test code = 0.3 MG/DL 7) ALKALINE PHOSPHATASE (test code 70 U/L = 2204) AST (test code = 2218) 6 U/L ALT (test code = 2219) 8 U/L [id number] 00:00:00 Test Item Value Reference Range Interpretation Comments TSH, THIRD GENERATION (test 82.000 UIU/ML code = 2821) [id number] 00:00:00 Test Item Value Reference Range Interpretation Comments TSH, THIRD GENERATION (test 82.000 UIU/ML code = 2821) [id number] 00:00:00 Test Item Value Reference Range Interpretation Comments TSH, THIRD GENERATION (test 82.000 UIU/ML code = 2821) HIV AB/AG COMBO RFLX [id number] 00:00:00 Test Item Value Reference Range Interpretation Comments HIV 1/2 4TH GEN, RFLX CONF (test NON-REACTIVE code = 3514) HIV AB/AG COMBO RFLX [id number] 00:00:00 Test Item Value Reference Range Interpretation Comments HIV 1/2 4TH GEN, RFLX CONF (test NON-REACTIVE code = 3514) ACUTE HEPATITIS [id number] 00:00:00 Test Item Value Reference Range Interpretation Comments HEPATITIS A IgM (test code = NON-REACTIVE 56925) HEPATITIS B CORE IgM (test code NON-REACTIVE = 4644) HEPATITIS B SURF AG (test code = NON-REACTIVE 2739) HEPATITIS C ANTIBODY (test code NON-REACTIVE = 4675) INTERPRETATION HEPATITIS A: (NOTE) (test code = 2552) INTERPRETATION HEPATITIS B: (NOTE) (test code = 53436) INTERPRETATION HEPATITIS C: (NOTE) (test code = 13326) ACUTE HEPATITIS [id number] 00:00:00 Test Item Value Reference Range Interpretation Comments HEPATITIS A IgM (test code = NON-REACTIVE 89259) HEPATITIS B CORE IgM (test code NON-REACTIVE = 4644) HEPATITIS B SURF AG (test code = NON-REACTIVE 2739) HEPATITIS C ANTIBODY (test code NON-REACTIVE = 4675) INTERPRETATION HEPATITIS A: (NOTE) (test code = 2552) INTERPRETATION HEPATITIS B: (NOTE) (test code = 11975) INTERPRETATION HEPATITIS C: (NOTE) (test code = 63869) HEMOGLOBIN [id number] 00:00:00 Test Item Value Reference Range Interpretation Comments HEMOGLOBIN A1c (test code = 86567) 6.2 % HEMOGLOBIN [id number] 00:00:00 Test Item Value Reference Range Interpretation Comments HEMOGLOBIN A1c (test code = 26089) 6.2 % LIPID [id number] 00:00:00 Test Item Value Reference Range Interpretation Comments CHOLESTEROL (test code = 2210) 196 MG/DL TRIGLYCERIDES (test code = 2232) 486 MG/DL HDL CHOLESTEROL (test code = 44 MG/DL 2220) CALC LDL CHOL (test code = 2237) (NOTE) MG/DL RISK RATIO LDL/HDL (test code = (NOTE) RATIO 2238) COMPREHENSIVE METABOLIC [id number] 00:00:00 Test Item Value Reference Range Interpretation Comments GLUCOSE (test code = 2217) 117 MG/DL BUN (test code = 2208) 54 MG/DL CREATININE (test code = 2214) 11.27 MG/DL eGFR (2020 CKD-EPI) (test code 5 ML/MIN/1.73 = 05657) CALC BUN/CREAT (test code = 5 RATIO [...] ALT (test code = 2219) 8 U/L CBC W/AUTO [id number] 00:00:00 Test Item Value Reference Range Interpretation [...] NUCLEATED RBCS (test code = 0.00 K/UL 77792) CBC W/AUTO [id number] 00:00:00 Test Item Value Reference Range Interpretation [...] NUCLEATED RBCS (test code = 0.00 K/UL 92106) CBC W/AUTO [id number] 00:00:00 Test Item Value Reference Range Interpretation [...] NUCLEATED RBCS (test code = 0.00 K/UL 60058) [id number] 00:00:00 Test Item Value Reference Range Interpretation Comments TSH, THIRD GENERATION (test 82.000 UIU/ML code = 2821) HEMOGLOBIN [id number] 00:00:00 Test Item Value Reference Range Interpretation Comments HEMOGLOBIN A1c (test code = 97851) 6.2 % HEMOGLOBIN [id number] 00:00:00 Test Item Value Reference Range Interpretation Comments HEMOGLOBIN A1c (test code = 98122) 6.2 % [id number] 00:00:00 Test Item Value Reference Range Interpretation Comments TSH, THIRD GENERATION (test 82.000 UIU/ML code = 2821) HEMOGLOBIN [id number] 00:00:00 Test Item Value Reference Range Interpretation Comments HEMOGLOBIN A1c (test code = 26497) 6.2 % HIV AB/AG COMBO RFLX [id number] 00:00:00 Test Item Value Reference Range Interpretation Comments HIV 1/2 4TH GEN, RFLX CONF (test NON-REACTIVE code = 3514) LIPID [id number] 00:00:00 Test Item Value Reference Range Interpretation Comments CHOLESTEROL (test code = 2210) 196 MG/DL TRIGLYCERIDES (test code = 2232) 486 MG/DL HDL CHOLESTEROL (test code = 44 MG/DL 2220) CALC LDL CHOL (test code = 2237) (NOTE) MG/DL RISK RATIO LDL/HDL (test code = (NOTE) RATIO 2238) LIPID [id number] 00:00:00 Test Item Value Reference Range Interpretation Comments CHOLESTEROL (test code = 2210) 196 MG/DL TRIGLYCERIDES (test code = 2232) 486 MG/DL HDL CHOLESTEROL (test code = 44 MG/DL 2220) CALC LDL CHOL (test code = 2237) (NOTE) MG/DL RISK RATIO LDL/HDL (test code = (NOTE) RATIO 2238) ACUTE HEPATITIS [id number] 00:00:00 Test Item Value Reference Range Interpretation Comments HEPATITIS A IgM (test code = NON-REACTIVE 72427) HEPATITIS B CORE IgM (test code NON-REACTIVE = 4644) HEPATITIS B SURF AG (test code = NON-REACTIVE 5819) HEPATITIS C ANTIBODY (test code NON-REACTIVE = 4675) INTERPRETATION HEPATITIS A: (NOTE) (test code = 2552) INTERPRETATION HEPATITIS B: (NOTE) (test code = 64443) INTERPRETATION HEPATITIS C: (NOTE) (test code = 35789) COMPREHENSIVE METABOLIC [id number] 00:00:00 Test Item Value Reference Range Interpretation Comments GLUCOSE (test code = 2217) 117 MG/DL BUN (test code = 2208) 54 MG/DL CREATININE (test code = 2214) 11.27 MG/DL eGFR (2020 CKD-EPI) (test code 5 ML/MIN/1.73 = 06452) CALC BUN/CREAT (test code = 5 RATIO 2235) SODIUM (test code = 2231) 139 MEQ/L POTASSIUM (test code = 2228) 4.2 MEQ/L CHLORIDE (test code = 2215) 95 MEQ/L CARBON DIOXIDE (test code = 23 MEQ/L 220) CALCIUM (test code = 2209) 8.8 MG/DL [...] code = 2219) 8 U/L COMPREHENSIVE METABOLIC [id number] 00:00:00 Test Item Value Reference Range Interpretation Comments GLUCOSE (test code = 2217) 117 MG/DL BUN (test code = 2208) 54 MG/DL CREATININE (test code = 2214) 11.27 MG/DL eGFR (2020 CKD-EPI) (test code 5 ML/MIN/1.73 = 65004) CALC BUN/CREAT (test code = 5 RATIO [...] ALT (test code = 2219) 8 U/L [id number] 00:00:00 Test Item Value Reference Range Interpretation Comments TSH, THIRD GENERATION (test 82.000 UIU/ML code = 2821) [id number] 00:00:00 Test Item Value Reference Range Interpretation Comments TSH, THIRD GENERATION (test 82.000 UIU/ML code = 2821) [id number] 00:00:00 Test Item Value Reference Range Interpretation Comments TSH, THIRD GENERATION (test 82.000 UIU/ML code = 2821) HIV AB/AG COMBO RFLX [id number] 00:00:00 Test Item Value Reference Range Interpretation Comments HIV 1/2 4TH GEN, RFLX CONF (test NON-REACTIVE code = 3514) HIV AB/AG COMBO RFLX [id number] 00:00:00 Test Item Value Reference Range Interpretation Comments HIV 1/2 4TH GEN, RFLX CONF (test NON-REACTIVE code = 3514) ACUTE HEPATITIS [id number] 00:00:00 Test Item Value Reference Range Interpretation Comments HEPATITIS A IgM (test code = NON-REACTIVE 93952) HEPATITIS B CORE IgM (test code NON-REACTIVE = 4644) HEPATITIS B SURF AG (test code = NON-REACTIVE 2739) HEPATITIS C ANTIBODY (test code NON-REACTIVE = 4675) INTERPRETATION HEPATITIS A: (NOTE) (test code = 2552) INTERPRETATION HEPATITIS B: (NOTE) (test code = 52162) INTERPRETATION HEPATITIS C: (NOTE) (test code = 64342) ACUTE HEPATITIS [id number] 00:00:00 Test Item Value Reference Range Interpretation Comments HEPATITIS A IgM (test code = NON-REACTIVE 45566) HEPATITIS B CORE IgM (test code NON-REACTIVE = 4644) HEPATITIS B SURF AG (test code = NON-REACTIVE 2739) HEPATITIS C ANTIBODY (test code NON-REACTIVE = 4675) INTERPRETATION HEPATITIS A: (NOTE) (test code = 2552) INTERPRETATION HEPATITIS B: (NOTE) (test code = 86733) INTERPRETATION HEPATITIS C: (NOTE) (test code = 78898) CBC W/AUTO [id number] 00:00:00 Test Item Value Reference Range Interpretation [...] NUCLEATED RBCS (test code = 0.00 K/UL 02260) CBC W/AUTO [id number] 00:00:00 Test Item Value Reference Range Interpretation [...] NUCLEATED RBCS (test code = 0.00 K/UL 01974) CBC W/AUTO [id number] 00:00:00 Test Item Value Reference Range Interpretation [...] NUCLEATED RBCS (test code = 0.00 K/UL 37338) HEMOGLOBIN [id number] 00:00:00 Test Item Value Reference Range Interpretation Comments HEMOGLOBIN A1c (test code = 90523) 6.2 % HEMOGLOBIN [id number] 00:00:00 Test Item Value Reference Range Interpretation Comments HEMOGLOBIN A1c (test code = 78125) 6.2 % HEMOGLOBIN [id number] 00:00:00 Test Item Value Reference Range Interpretation Comments HEMOGLOBIN A1c (test code = 56344) 6.2 % LIPID [id number] 00:00:00 Test Item Value Reference Range Interpretation Comments CHOLESTEROL (test code = 2210) 196 MG/DL TRIGLYCERIDES (test code = 2232) 486 MG/DL HDL CHOLESTEROL (test code = 44 MG/DL 2220) CALC LDL CHOL (test code = 2237) (NOTE) MG/DL RISK RATIO LDL/HDL (test code = (NOTE) RATIO 2238) LIPID [id number] 00:00:00 Test Item Value Reference Range Interpretation Comments CHOLESTEROL (test code = 2210) 196 MG/DL TRIGLYCERIDES (test code = 2232) 486 MG/DL HDL CHOLESTEROL (test code = 44 MG/DL 2220) CALC LDL CHOL (test code = 2237) (NOTE) MG/DL RISK RATIO LDL/HDL (test code = (NOTE) RATIO 2238) COMPREHENSIVE METABOLIC [id number] 00:00:00 Test Item Value Reference Range Interpretation Comments GLUCOSE (test code = 2217) 117 MG/DL BUN (test code = 2208) 54 MG/DL CREATININE (test code = 2214) 11.27 MG/DL eGFR (2020 CKD-EPI) (test code 5 ML/MIN/1.73 = 95100) CALC BUN/CREAT (test code = 5 RATIO [...] code = 2219) 8 U/L COMPREHENSIVE METABOLIC [id number] 00:00:00 Test Item Value Reference Range Interpretation Comments GLUCOSE (test code = 2217) 117 MG/DL BUN (test code = 2208) 54 MG/DL CREATININE (test code = 2214) 11.27 MG/DL eGFR (2020 CKD-EPI) (test code 5 ML/MIN/1.73 = 19198) CALC BUN/CREAT (test code = 5 RATIO [...] ALT (test code = 2219) 8 U/L [id number] 00:00:00 Test Item Value Reference Range Interpretation Comments TSH, THIRD GENERATION (test 82.000 UIU/ML code = 2821) [id number] 00:00:00 Test Item Value Reference Range Interpretation Comments TSH, THIRD GENERATION (test 82.000 UIU/ML code = 2821) [id number] 00:00:00 Test Item Value Reference Range Interpretation Comments TSH, THIRD GENERATION (test 82.000 UIU/ML code = 2821) HIV AB/AG COMBO RFLX [id number] 00:00:00 Test Item Value Reference Range Interpretation Comments HIV 1/2 4TH GEN, RFLX CONF (test NON-REACTIVE code = 3514) HIV AB/AG COMBO RFLX [id number] 00:00:00 Test Item Value Reference Range Interpretation Comments HIV 1/2 4TH GEN, RFLX CONF (test NON-REACTIVE code = 3514) ACUTE HEPATITIS [id number] 00:00:00 Test Item Value Reference Range Interpretation Comments HEPATITIS A IgM (test code = NON-REACTIVE 95493) HEPATITIS B CORE IgM (test code NON-REACTIVE = 4644) HEPATITIS B SURF AG (test code = NON-REACTIVE 2739) HEPATITIS C ANTIBODY (test code NON-REACTIVE = 4675) INTERPRETATION HEPATITIS A: (NOTE) (test code = 2552) INTERPRETATION HEPATITIS B: (NOTE) (test code = 64702) INTERPRETATION HEPATITIS C: (NOTE) (test code = 92894) ACUTE HEPATITIS [id number] 00:00:00 Test Item Value Reference Range Interpretation Comments HEPATITIS A IgM (test code = NON-REACTIVE 85417) HEPATITIS B CORE IgM (test code NON-REACTIVE = 4644) HEPATITIS B SURF AG (test code = NON-REACTIVE 2739) HEPATITIS C ANTIBODY (test code NON-REACTIVE = 4675) INTERPRETATION HEPATITIS A: (NOTE) (test code = 2552) INTERPRETATION HEPATITIS B: (NOTE) (test code = 54021) INTERPRETATION HEPATITIS C: (NOTE) (test code = 74766) CBC W/AUTO [id number] 00:00:00 Test Item Value Reference Range Interpretation [...] NUCLEATED RBCS (test code = 0.00 K/UL 10805) CBC W/AUTO [id number] 00:00:00 Test Item Value Reference Range Interpretation [...] NUCLEATED RBCS (test code = 0.00 K/UL 17832) CBC W/AUTO [id number] 00:00:00 Test Item Value Reference Range Interpretation [...] NUCLEATED RBCS (test code = 0.00 K/UL 23947) HEMOGLOBIN [id number] 00:00:00 Test Item Value Reference Range Interpretation Comments HEMOGLOBIN A1c (test code = 56025) 6.2 % HEMOGLOBIN [id number] 00:00:00 Test Item Value Reference Range Interpretation Comments HEMOGLOBIN A1c (test code = 08636) 6.2 % HEMOGLOBIN [id number] 00:00:00 Test Item Value Reference Range Interpretation Comments HEMOGLOBIN A1c (test code = 56956) 6.2 % LIPID [id number] 00:00:00 Test Item Value Reference Range Interpretation Comments CHOLESTEROL (test code = 2210) 196 MG/DL TRIGLYCERIDES (test code = 2232) 486 MG/DL HDL CHOLESTEROL (test code = 44 MG/DL 2220) CALC LDL CHOL (test code = 2237) (NOTE) MG/DL RISK RATIO LDL/HDL (test code = (NOTE) RATIO 2238) LIPID [id number] 00:00:00 Test Item Value Reference Range Interpretation Comments CHOLESTEROL (test code = 2210) 196 MG/DL TRIGLYCERIDES (test code = 2232) 486 MG/DL HDL CHOLESTEROL (test code = 44 MG/DL 2220) CALC LDL CHOL (test code = 2237) (NOTE) MG/DL RISK RATIO LDL/HDL (test code = (NOTE) RATIO 2238) COMPREHENSIVE METABOLIC [id number] 00:00:00 Test Item Value Reference Range Interpretation Comments GLUCOSE (test code = 2217) 117 MG/DL BUN (test code = 2208) 54 MG/DL CREATININE (test code = 2214) 11.27 MG/DL eGFR (2020 CKD-EPI) (test code 5 ML/MIN/1.73 = 74944) CALC BUN/CREAT (test code = 5 RATIO 2235) SODIUM (test code = 2231) 139 MEQ/L POTASSIUM (test code = 2228) 4.2 MEQ/L CHLORIDE (test code = 2215) 95 MEQ/L CARBON DIOXIDE (test code = 23 MEQ/L 2206) CALCIUM (test code = 2209) 8.8 MG/DL [...] code = 2219) 8 U/L COMPREHENSIVE METABOLIC [id number] 00:00:00 Test Item Value Reference Range Interpretation Comments GLUCOSE (test code = 2217) 117 MG/DL BUN (test code = 2208) 54 MG/DL CREATININE (test code = 2214) 11.27 MG/DL eGFR (2020 CKD-EPI) (test code 5 ML/MIN/1.73 = 03127) CALC BUN/CREAT (test code = 5 RATIO 2235) SODIUM (test code = 2231) 139 MEQ/L POTASSIUM (test code = 2228) 4.2 MEQ/L CHLORIDE (test code = 2215) 95 MEQ/L CARBON DIOXIDE (test code = 23 MEQ/L 2206) CALCIUM (test code = 2209) 8.8 MG/DL PROTEIN, TOTAL (test code = 8.5 G/DL 2228) ALBUMIN (test code = 2201) 5.3 G/DL CALC GLOBULIN (test code = 3.2 G/DL 2240) CALC A/G RATIO (test code = 1.7 RATIO 2234) BILIRUBIN, TOTAL (test code = 0.3 MG/DL 7) ALKALINE PHOSPHATASE (test code 70 U/L = 2204) AST (test code = 2218) 6 U/L ALT (test code = 2219) 8 U/L [id number] 00:00:00 Test Item Value Reference Range Interpretation Comments TSH, THIRD GENERATION (test 82.000 UIU/ML code = 2821) [id number] 00:00:00 Test Item Value Reference Range Interpretation Comments TSH, THIRD GENERATION (test 82.000 UIU/ML code = 2821) [id number] 00:00:00 Test Item Value Reference Range Interpretation Comments TSH, THIRD GENERATION (test 82.000 UIU/ML code = 2821) HIV AB/AG COMBO RFLX [id number] 00:00:00 Test Item Value Reference Range Interpretation Comments HIV 1/2 4TH GEN, RFLX CONF (test NON-REACTIVE code = 3514) HIV AB/AG COMBO RFLX [id number] 00:00:00 Test Item Value Reference Range Interpretation Comments HIV 1/2 4TH GEN, RFLX CONF (test NON-REACTIVE code = 3514) ACUTE HEPATITIS [id number] 00:00:00 Test Item Value Reference Range Interpretation Comments HEPATITIS A IgM (test code = NON-REACTIVE 83090) HEPATITIS B CORE IgM (test code NON-REACTIVE = 4644) HEPATITIS B SURF AG (test code = NON-REACTIVE 2739) HEPATITIS C ANTIBODY (test code NON-REACTIVE = 4675) INTERPRETATION HEPATITIS A: (NOTE) (test code = 2552) INTERPRETATION HEPATITIS B: (NOTE) (test code = 09956) INTERPRETATION HEPATITIS C: (NOTE) (test code = 02073) ACUTE HEPATITIS [id number] 00:00:00 Test Item Value Reference Range Interpretation Comments HEPATITIS A IgM (test code = NON-REACTIVE 65468) HEPATITIS B CORE IgM (test code NON-REACTIVE = 4644) HEPATITIS B SURF AG (test code = NON-REACTIVE 2739) HEPATITIS C ANTIBODY (test code NON-REACTIVE = 4675) INTERPRETATION HEPATITIS A: (NOTE) (test code = 2552) INTERPRETATION HEPATITIS B: (NOTE) (test code = 48460) INTERPRETATION HEPATITIS C: (NOTE) (test code = 27883) CBC W/AUTO [id number] 00:00:00 Test Item Value Reference Range Interpretation [...] NUCLEATED RBCS (test code = 0.00 K/UL 27802) CBC W/AUTO [id number] 00:00:00 Test Item Value Reference Range Interpretation [...] NUCLEATED RBCS (test code = 0.00 K/UL 24244) CBC W/AUTO [id number] 00:00:00 Test Item Value Reference Range Interpretation [...] NUCLEATED RBCS (test code = 0.00 K/UL 92714) HEMOGLOBIN [id number] 00:00:00 Test Item Value Reference Range Interpretation Comments HEMOGLOBIN A1c (test code = 49941) 6.2 % HEMOGLOBIN [id number] 00:00:00 Test Item Value Reference Range Interpretation Comments HEMOGLOBIN A1c (test code = 98164) 6.2 % HEMOGLOBIN [id number] 00:00:00 Test Item Value Reference Range Interpretation Comments HEMOGLOBIN A1c (test code = 84096) 6.2 % LIPID [id number] 00:00:00 Test Item Value Reference Range Interpretation Comments CHOLESTEROL (test code = 2210) 196 MG/DL TRIGLYCERIDES (test code = 2232) 486 MG/DL HDL CHOLESTEROL (test code = 44 MG/DL 2220) CALC LDL CHOL (test code = 2237) (NOTE) MG/DL RISK RATIO LDL/HDL (test code = (NOTE) RATIO 2238) LIPID [id number] 00:00:00 Test Item Value Reference Range Interpretation Comments CHOLESTEROL (test code = 2210) 196 MG/DL TRIGLYCERIDES (test code = 2232) 486 MG/DL HDL CHOLESTEROL (test code = 44 MG/DL 2220) CALC LDL CHOL (test code = 2237) (NOTE) MG/DL RISK RATIO LDL/HDL (test code = (NOTE) RATIO 2238) COMPREHENSIVE METABOLIC [id number] 00:00:00 Test Item Value Reference Range Interpretation Comments GLUCOSE (test code = 2217) 117 MG/DL BUN (test code = 2208) 54 MG/DL CREATININE (test code = 2214) 11.27 MG/DL eGFR (2020 CKD-EPI) (test code 5 ML/MIN/1.73 = 30676) CALC BUN/CREAT (test code = 5 RATIO [...] code = 2219) 8 U/L COMPREHENSIVE METABOLIC [id number] 00:00:00 Test Item Value Reference Range Interpretation Comments GLUCOSE (test code = 2217) 117 MG/DL BUN (test code = 2208) 54 MG/DL CREATININE (test code = 2214) 11.27 MG/DL eGFR (2020 CKD-EPI) (test code 5 ML/MIN/1.73 = 19772) CALC BUN/CREAT (test code = 5 RATIO [...] ALT (test code = 2219) 8 U/L [id number] 00:00:00 Test Item Value Reference Range Interpretation Comments TSH, THIRD GENERATION (test 82.000 UIU/ML code = 2821) [id number] 00:00:00 Test Item Value Reference Range Interpretation Comments TSH, THIRD GENERATION (test 82.000 UIU/ML code = 2821) [id number] 00:00:00 Test Item Value Reference Range Interpretation Comments TSH, THIRD GENERATION (test 82.000 UIU/ML code = 2821) HIV AB/AG COMBO RFLX [id number] 00:00:00 Test Item Value Reference Range Interpretation Comments HIV 1/2 4TH GEN, RFLX CONF (test NON-REACTIVE code = 3514) HIV AB/AG COMBO RFLX [id number] 00:00:00 Test Item Value Reference Range Interpretation Comments HIV 1/2 4TH GEN, RFLX CONF (test NON-REACTIVE code = 3514) ACUTE HEPATITIS [id number] 00:00:00 Test Item Value Reference Range Interpretation Comments HEPATITIS A IgM (test code = NON-REACTIVE 64103) HEPATITIS B CORE IgM (test code NON-REACTIVE = 4644) HEPATITIS B SURF AG (test code = NON-REACTIVE 2739) HEPATITIS C ANTIBODY (test code NON-REACTIVE = 4675) INTERPRETATION HEPATITIS A: (NOTE) (test code = 2552) INTERPRETATION HEPATITIS B: (NOTE) (test code = 40095) INTERPRETATION HEPATITIS C: (NOTE) (test code = 07768) ACUTE HEPATITIS [id number] 00:00:00 Test Item Value Reference Range Interpretation Comments HEPATITIS A IgM (test code = NON-REACTIVE 33213) HEPATITIS B CORE IgM (test code NON-REACTIVE = 4644) HEPATITIS B SURF AG (test code = NON-REACTIVE 2739) HEPATITIS C ANTIBODY (test code NON-REACTIVE = 4675) INTERPRETATION HEPATITIS A: (NOTE) (test code = 2552) INTERPRETATION HEPATITIS B: (NOTE) (test code = 52322) INTERPRETATION HEPATITIS C: (NOTE) (test code = 87848) TSH, THIRD [id number] 05:58:13 Test Item Value Reference Range Interpretation Comments TSH, THIRD 33.700 UIU/ML 0.400-4.100 H UNLESS OTHERW ISE GENERATION (test INDICATED, ALL code = 2821) TESTING PERFORM ED ATCLINICAL PATH [facility], [facility]. [address] [place] [address] DIRECTOR: LATOYA MCCALL M.D. CLIA NUMBER [id number] CAP ACCREDITATION N O. [id number] HEMOGLOBIN [id number] 02:44:08 Test Item Value Reference Range Interpretation Comments HEMOGLOBIN A1c (test 7.0 % 4.2-5.6 H [employer] code = 01170) ASSOCIATION [employer] FOR HGB A1C: PREDIABETES/INC REASED [...] Interpretation Comments HEMOGLOBIN A1c (test code = 80302) 7.0 % HEMOGLOBIN A1c [ADDED]2021-05-16 00:00:00 Test Item Value Reference Range Interpretation Comments HEMOGLOBIN A1c (test code = 72289) 7.0 % HEMOGLOBIN A1c [ADDED]2021-05-16 00:00:00 Test Item Value Reference Range Interpretation Comments HEMOGLOBIN A1c (test code = 25910) 7.0 % TSH, THIRD GENERATION [ADDED]2021-05-16 00:00:00 [...] Interpretation Comments HEMOGLOBIN A1c (test code = 22209) 7.0 % HEMOGLOBIN A1c [ADDED]2021-05-16 00:00:00 Test Item Value Reference Range Interpretation Comments HEMOGLOBIN A1c (test code = 35589) 7.0 % HEMOGLOBIN A1c [ADDED]2021-05-16 00:00:00 Test Item Value Reference Range Interpretation Comments HEMOGLOBIN A1c (test code = 88115) 7.0 % TSH, THIRD GENERATION [ADDED]2021-05-16 00:00:00 [...] Interpretation Comments HEMOGLOBIN A1c (test code = 15590) 7.0 % HEMOGLOBIN A1c [ADDED]2021-05-16 00:00:00 Test Item Value Reference Range Interpretation Comments HEMOGLOBIN A1c (test code = 66257) 7.0 % HEMOGLOBIN A1c [ADDED]2021-05-16 00:00:00 Test Item Value Reference Range Interpretation Comments HEMOGLOBIN A1c (test code = 09770) 7.0 % HEMOGLOBIN A1c [ADDED]2021-05-16 00:00:00 Test Item Value Reference Range Interpretation Comments HEMOGLOBIN A1c (test code = 24545) 7.0 % HEMOGLOBIN A1c [ADDED]2021-05-16 00:00:00 Test Item Value Reference Range Interpretation Comments HEMOGLOBIN A1c (test code = 97836) 7.0 % TSH, THIRD GENERATION [ADDED]2021-05-16 00:00:00 [...] Interpretation Comments HEMOGLOBIN A1c (test code = 52953) 7.0 % HEMOGLOBIN A1c [ADDED]2021-05-16 00:00:00 Test Item Value Reference Range Interpretation Comments HEMOGLOBIN A1c (test code = 83779) 7.0 % HEMOGLOBIN A1c [ADDED]2021-05-16 00:00:00 Test Item Value Reference Range Interpretation Comments HEMOGLOBIN A1c (test code = 94967) 7.0 % TSH, THIRD GENERATION [ADDED]2021-05-16 00:00:00 [...] Interpretation Comments HEMOGLOBIN A1c (test code = 09351) 7.0 % HEMOGLOBIN A1c [ADDED]2021-05-16 00:00:00 Test Item Value Reference Range Interpretation Comments HEMOGLOBIN A1c (test code = 55639) 7.0 % HEMOGLOBIN A1c [ADDED]2021-05-16 00:00:00 Test Item Value Reference Range Interpretation Comments HEMOGLOBIN A1c (test code = 09609) 7.0 % TSH, THIRD GENERATION [ADDED]2021-05-16 00:00:00 [...] Interpretation Comments HEMOGLOBIN A1c (test code = 58971) 7.0 % HEMOGLOBIN A1c [ADDED]2021-05-16 00:00:00 Test Item Value Reference Range Interpretation Comments HEMOGLOBIN A1c (test code = 25331) 7.0 % HEMOGLOBIN A1c [ADDED]2021-05-16 00:00:00 Test Item Value Reference Range Interpretation Comments HEMOGLOBIN A1c (test code = 36986) 7.0 % TSH, THIRD GENERATION [ADDED]2021-05-16 00:00:00 [...] Interpretation Comments HEMOGLOBIN A1c (test code = 69604) 7.0 % HEMOGLOBIN A1c [ADDED]2021-05-16 00:00:00 Test Item Value Reference Range Interpretation Comments HEMOGLOBIN A1c (test code = 69415) 7.0 % HEMOGLOBIN A1c [ADDED]2021-05-16 00:00:00 Test Item Value Reference Range Interpretation Comments HEMOGLOBIN A1c (test code = 68546) 7.0 % TSH, THIRD GENERATION [ADDED]2021-05-16 00:00:00 [...] 33.700 UIU/ML code = 2821) CBC W/AUTO [id number] 00:00:00 Test Item Value Reference Range Interpretation [...] NUCLEATED RBCS (test code = 0.00 K/UL 96621) CBC W/AUTO [id number] 00:00:00 Test Item Value Reference Range Interpretation [...] NUCLEATED RBCS (test code = 0.00 K/UL 64335) CBC W/AUTO [id number] 00:00:00 Test Item Value Reference Range Interpretation [...] NUCLEATED RBCS (test code = 0.00 K/UL 03370) COMPREHENSIVE METABOLIC [id number] 00:00:00 Test Item Value Reference Range Interpretation Comments GLUCOSE (test code = 2217) 317 MG/DL BUN (test code = 2208) 41 MG/DL CREATININE (test code = 2214) 6.82 MG/DL eGFR (2020 CKD-EPI) (test code 8 ML/MIN/1.73 = 47652) CALC BUN/CREAT (test code = 6 RATIO [...] code = 2219) 22 U/L COMPREHENSIVE METABOLIC [id number] 00:00:00 Test Item Value Reference Range Interpretation Comments GLUCOSE (test code = 2217) 317 MG/DL BUN (test code = 2208) 41 MG/DL CREATININE (test code = 2214) 6.82 MG/DL eGFR (2020 CKD-EPI) (test code 8 ML/MIN/1.73 = 80411) CALC BUN/CREAT (test code = 6 RATIO [...] code = 2219) 22 U/L CBC W/AUTO [id number] 00:00:00 Test Item Value Reference Range Interpretation [...] NUCLEATED RBCS (test code = 0.00 K/UL 66723) CBC W/AUTO [id number] 00:00:00 Test Item Value Reference Range Interpretation [...] NUCLEATED RBCS (test code = 0.00 K/UL 03737) CBC W/AUTO [id number] 00:00:00 Test Item Value Reference Range Interpretation [...] NUCLEATED RBCS (test code = 0.00 K/UL 32171) COMPREHENSIVE METABOLIC [id number] 00:00:00 Test Item Value Reference Range Interpretation Comments GLUCOSE (test code = 2217) 317 MG/DL BUN (test code = 2208) 41 MG/DL CREATININE (test code = 2214) 6.82 MG/DL eGFR (2020 CKD-EPI) (test code 8 ML/MIN/1.73 = 96363) CALC BUN/CREAT (test code = 6 RATIO [...] code = 2219) 22 U/L COMPREHENSIVE METABOLIC [id number] 00:00:00 Test Item Value Reference Range Interpretation Comments GLUCOSE (test code = 2217) 317 MG/DL BUN (test code = 2208) 41 MG/DL CREATININE (test code = 2214) 6.82 MG/DL eGFR (2020 CKD-EPI) (test code 8 ML/MIN/1.73 = 87526) CALC BUN/CREAT (test code = 6 RATIO [...] ALKALINE PHOSPHATASE (test code 118 U/L = 4) AST (test code = 2218) 13 U/L ALT (test code = 2219) 22 U/L CBC W/AUTO [id number] 00:00:00 Test Item Value Reference Range Interpretation [...] NUCLEATED RBCS (test code = 0.00 K/UL 13692) CBC W/AUTO [id number] 00:00:00 Test Item Value Reference Range Interpretation [...] NUCLEATED RBCS (test code = 0.00 K/UL 50624) CBC W/AUTO [id number] 00:00:00 Test Item Value Reference Range Interpretation [...] NUCLEATED RBCS (test code = 0.00 K/UL 14487) CBC W/AUTO [id number] 00:00:00 Test Item Value Reference Range Interpretation [...] NUCLEATED RBCS (test code = 0.00 K/UL 67292) CBC W/AUTO [id number] 00:00:00 Test Item Value Reference Range Interpretation [...] NUCLEATED RBCS (test code = 0.00 K/UL 40982) COMPREHENSIVE METABOLIC [id number] 00:00:00 Test Item Value Reference Range Interpretation Comments GLUCOSE (test code = 2217) 317 MG/DL BUN (test code = 2208) 41 MG/DL CREATININE (test code = 2214) 6.82 MG/DL eGFR (2020 CKD-EPI) (test code 8 ML/MIN/1.73 = 66684) CALC BUN/CREAT (test code = 6 RATIO [...] code = 2219) 22 U/L COMPREHENSIVE METABOLIC [id number] 00:00:00 Test Item Value Reference Range Interpretation Comments GLUCOSE (test code = 2217) 317 MG/DL BUN (test code = 2208) 41 MG/DL CREATININE (test code = 2214) 6.82 MG/DL eGFR (2020 CKD-EPI) (test code 8 ML/MIN/1.73 = 99818) CALC BUN/CREAT (test code = 6 RATIO [...] code = 2219) 22 U/L COMPREHENSIVE METABOLIC [id number] 00:00:00 Test Item Value Reference Range Interpretation Comments GLUCOSE (test code = 2217) 317 MG/DL BUN (test code = 2208) 41 MG/DL CREATININE (test code = 2214) 6.82 MG/DL eGFR (2020 CKD-EPI) (test code 8 ML/MIN/1.73 = 17593) CALC BUN/CREAT (test code = 6 RATIO [...] code = 2219) 22 U/L CBC W/AUTO [id number] 00:00:00 Test Item Value Reference Range Interpretation [...] NUCLEATED RBCS (test code = 0.00 K/UL 44217) CBC W/AUTO [id number] 00:00:00 Test Item Value Reference Range Interpretation [...] NUCLEATED RBCS (test code = 0.00 K/UL 78248) CBC W/AUTO [id number] 00:00:00 Test Item Value Reference Range Interpretation [...] NUCLEATED RBCS (test code = 0.00 K/UL 51161) COMPREHENSIVE METABOLIC [id number] 00:00:00 Test Item Value Reference Range Interpretation Comments GLUCOSE (test code = 2217) 317 MG/DL BUN (test code = 2208) 41 MG/DL CREATININE (test code = 2214) 6.82 MG/DL eGFR (2020 CKD-EPI) (test code 8 ML/MIN/1.73 = 58867) CALC BUN/CREAT (test code = 6 RATIO [...] code = 2219) 22 U/L COMPREHENSIVE METABOLIC [id number] 00:00:00 Test Item Value Reference Range Interpretation Comments GLUCOSE (test code = 2217) 317 MG/DL BUN (test code = 2208) 41 MG/DL CREATININE (test code = 2214) 6.82 MG/DL eGFR (2020 CKD-EPI) (test code 8 ML/MIN/1.73 = 47255) CALC BUN/CREAT (test code = 6 RATIO [...] code = 2219) 22 U/L CBC W/AUTO [id number] 00:00:00 Test Item Value Reference Range Interpretation [...] NUCLEATED RBCS (test code = 0.00 K/UL 17232) CBC W/AUTO [id number] 00:00:00 Test Item Value Reference Range Interpretation [...] NUCLEATED RBCS (test code = 0.00 K/UL 98890) CBC W/AUTO [id number] 00:00:00 Test Item Value Reference Range Interpretation [...] NUCLEATED RBCS (test code = 0.00 K/UL 96425) COMPREHENSIVE METABOLIC [id number] 00:00:00 Test Item Value Reference Range Interpretation Comments GLUCOSE (test code = 2217) 317 MG/DL BUN (test code = 2208) 41 MG/DL CREATININE (test code = 2214) 6.82 MG/DL eGFR (2020 CKD-EPI) (test code 8 ML/MIN/1.73 = 70283) CALC BUN/CREAT (test code = 6 RATIO [...] code = 2219) 22 U/L COMPREHENSIVE METABOLIC [id number] 00:00:00 Test Item Value Reference Range Interpretation Comments GLUCOSE (test code = 2217) 317 MG/DL BUN (test code = 2208) 41 MG/DL CREATININE (test code = 2214) 6.82 MG/DL eGFR (2020 CKD-EPI) (test code 8 ML/MIN/1.73 = 93100) CALC BUN/CREAT (test code = 6 RATIO [...] code = 2219) 22 U/L CBC W/AUTO [id number] 00:00:00 Test Item Value Reference Range Interpretation [...] NUCLEATED RBCS (test code = 0.00 K/UL 91294) CBC W/AUTO [id number] 00:00:00 Test Item Value Reference Range Interpretation [...] NUCLEATED RBCS (test code = 0.00 K/UL 74100) CBC W/AUTO [id number] 00:00:00 Test Item Value Reference Range Interpretation [...] NUCLEATED RBCS (test code = 0.00 K/UL 05473) COMPREHENSIVE METABOLIC [id number] 00:00:00 Test Item Value Reference Range Interpretation Comments GLUCOSE (test code = 2217) 317 MG/DL BUN (test code = 2208) 41 MG/DL CREATININE (test code = 2214) 6.82 MG/DL eGFR (2020 CKD-EPI) (test code 8 ML/MIN/1.73 = 88738) CALC BUN/CREAT (test code = 6 RATIO [...] code = 2219) 22 U/L COMPREHENSIVE METABOLIC [id number] 00:00:00 Test Item Value Reference Range Interpretation Comments GLUCOSE (test code = 2217) 317 MG/DL BUN (test code = 2208) 41 MG/DL CREATININE (test code = 2214) 6.82 MG/DL eGFR (2020 CKD-EPI) (test code 8 ML/MIN/1.73 = 36081) CALC BUN/CREAT (test code = 6 RATIO [...] code = 2219) 22 U/L CBC W/AUTO [id number] 00:00:00 Test Item Value Reference Range Interpretation [...] NUCLEATED RBCS (test code = 0.00 K/UL 68257) CBC W/AUTO [id number] 00:00:00 Test Item Value Reference Range Interpretation [...] NUCLEATED RBCS (test code = 0.00 K/UL 45178) CBC W/AUTO [id number] 00:00:00 Test Item Value Reference Range Interpretation [...] NUCLEATED RBCS (test code = 0.00 K/UL 26931) COMPREHENSIVE METABOLIC [id number] 00:00:00 Test Item Value Reference Range Interpretation Comments GLUCOSE (test code = 2217) 317 MG/DL BUN (test code = 2208) 41 MG/DL CREATININE (test code = 2214) 6.82 MG/DL eGFR (2020 CKD-EPI) (test code 8 ML/MIN/1.73 = 04873) CALC BUN/CREAT (test code = 6 RATIO [...] ALKALINE PHOSPHATASE (test code 118 U/L = 220) AST (test code = 2218) 13 U/L ALT (test code = 2219) 22 U/L COMPREHENSIVE METABOLIC [id number] 00:00:00 Test Item Value Reference Range Interpretation Comments GLUCOSE (test code = 2217) 317 MG/DL BUN (test code = 2208) 41 MG/DL CREATININE (test code = 2214) 6.82 MG/DL eGFR (2020 CKD-EPI) (test code 8 ML/MIN/1.73 = 33400) CALC BUN/CREAT (test code = 6 RATIO [...] ALT (test code = 2219) 22 U/L [id number] 00:00:00 Test Item Value Reference Range Interpretation Comments AMYLASE (test code = 2205) 168 U/L [id number] 00:00:00 Test Item Value Reference Range Interpretation Comments AMYLASE (test code = 2205) 168 U/L [id number] 00:00:00 Test Item Value Reference Range Interpretation Comments LIPASE (test code = 2058) 116 U/L [id number] 00:00:00 Test Item Value Reference Range Interpretation Comments LIPASE (test code = 2058) 116 U/L [id number] 00:00:00 Test Item Value Reference Range Interpretation Comments LIPASE (test code = 2058) 116 U/L [id number] 00:00:00 Test Item Value Reference Range Interpretation Comments AMYLASE (test code = 2205) 168 U/L [id number] 00:00:00 Test Item Value Reference Range Interpretation Comments AMYLASE (test code = 2205) 168 U/L [id number] 00:00:00 Test Item Value Reference Range Interpretation Comments LIPASE (test code = 2057) 116 U/L [id number] 00:00:00 Test Item Value Reference Range Interpretation Comments LIPASE (test code = 2057) 116 U/L [id number] 00:00:00 Test Item Value Reference Range Interpretation Comments LIPASE (test code = 2057) 116 U/L [id number] 00:00:00 Test Item Value Reference Range Interpretation Comments AMYLASE (test code = 2204) 168 U/L [id number] 00:00:00 Test Item Value Reference Range Interpretation Comments AMYLASE (test code = 2204) 168 U/L [id number] 00:00:00 Test Item Value Reference Range Interpretation Comments AMYLASE (test code = 2204) 168 U/L [id number] 00:00:00 Test Item Value Reference Range Interpretation Comments LIPASE (test code = 2057) 116 U/L [id number] 00:00:00 Test Item Value Reference Range Interpretation Comments LIPASE (test code = 2057) 116 U/L [id number] 00:00:00 Test Item Value Reference Range Interpretation Comments LIPASE (test code = 2057) 116 U/L [id number] 00:00:00 Test Item Value Reference Range Interpretation Comments LIPASE (test code = 2057) 116 U/L [id number] 00:00:00 Test Item Value Reference Range Interpretation Comments LIPASE (test code = 2057) 116 U/L [id number] 00:00:00 Test Item Value Reference Range Interpretation Comments AMYLASE (test code = 2204) 168 U/L [id number] 00:00:00 Test Item Value Reference Range Interpretation Comments AMYLASE (test code = 2204) 168 U/L [id number] 00:00:00 Test Item Value Reference Range Interpretation Comments LIPASE (test code = 2057) 116 U/L [id number] 00:00:00 Test Item Value Reference Range Interpretation Comments LIPASE (test code = 2057) 116 U/L [id number] 00:00:00 Test Item Value Reference Range Interpretation Comments LIPASE (test code = 2057) 116 U/L [id number] 00:00:00 Test Item Value Reference Range Interpretation Comments AMYLASE (test code = 2205) 168 U/L [id number] 00:00:00 Test Item Value Reference Range Interpretation Comments AMYLASE (test code = 2204) 168 U/L [id number] 00:00:00 Test Item Value Reference Range Interpretation Comments LIPASE (test code = 2057) 116 U/L [id number] 00:00:00 Test Item Value Reference Range Interpretation Comments LIPASE (test code = 2057) 116 U/L [id number] 00:00:00 Test Item Value Reference Range Interpretation Comments LIPASE (test code = 2057) 116 U/L [id number] 00:00:00 Test Item Value Reference Range Interpretation Comments AMYLASE (test code = 5) 168 U/L [id number] 00:00:00 Test Item Value Reference Range Interpretation Comments AMYLASE (test code = 2204) 168 U/L [id number] 00:00:00 Test Item Value Reference Range Interpretation Comments LIPASE (test code = 2057) 116 U/L [id number] 00:00:00 Test Item Value Reference Range Interpretation Comments LIPASE (test code = 2057) 116 U/L [id number] 00:00:00 Test Item Value Reference Range Interpretation Comments LIPASE (test code = 2057) 116 U/L [id number] 00:00:00 Test Item Value Reference Range Interpretation Comments AMYLASE (test code = 2205) 168 U/L [id number] 00:00:00 Test Item Value Reference Range Interpretation Comments AMYLASE (test code = 2204) 168 U/L [id number] 00:00:00 Test Item Value Reference Range Interpretation Comments LIPASE (test code = 2057) 116 U/L [id number] 00:00:00 Test Item Value Reference Range Interpretation Comments LIPASE (test code = 2057) 116 U/L [id number] 00:00:00 Test Item Value Reference Range Interpretation Comments LIPASE (test code = 2057) 116 U/L [id number] 00:00:00 Test Item Value Reference Range Interpretation Comments TSH, THIRD GENERATION (test >100.000 UIU/ML code = 2821) [id number] 00:00:00 Test Item Value Reference Range Interpretation Comments TSH, THIRD GENERATION (test >100.000 UIU/ML code = 2821) [id number] 00:00:00 Test Item Value Reference Range Interpretation Comments TSH, THIRD GENERATION (test >100.000 UIU/ML code = 2821) LIPID [id number] 00:00:00 Test Item Value Reference Range Interpretation Comments CHOLESTEROL (test code = 2210) 308 MG/DL TRIGLYCERIDES (test code = 2232) 280 MG/DL HDL CHOLESTEROL (test code = 2220) 66 MG/DL CALC LDL CHOL (test code = 2237) 192 MG/DL RISK RATIO LDL/HDL (test code = 2.91 RATIO 2238) LIPID [id number] 00:00:00 Test Item Value Reference Range Interpretation Comments CHOLESTEROL (test code = 2210) 308 MG/DL TRIGLYCERIDES (test code = 2232) 280 MG/DL HDL CHOLESTEROL (test code = 2220) 66 MG/DL CALC LDL CHOL (test code = 2237) 192 MG/DL RISK RATIO LDL/HDL (test code = 2.91 RATIO 2238) CBC W/AUTO [id number] 00:00:00 Test Item Value Reference Range Interpretation [...] NUCLEATED RBCS (test code = 0.00 K/UL 80346) CBC W/AUTO [id number] 00:00:00 Test Item Value Reference Range Interpretation [...] NUCLEATED RBCS (test code = 0.00 K/UL 80181) CBC W/AUTO [id number] 00:00:00 Test Item Value Reference Range Interpretation [...] NUCLEATED RBCS (test code = 0.00 K/UL 83828) COMPREHENSIVE METABOLIC [id number] 00:00:00 Test Item Value Reference Range Interpretation Comments GLUCOSE (test code = 2217) 137 MG/DL BUN (test code = 2208) 56 MG/DL CREATININE (test code = 2214) 10.21 MG/DL eGFR AMER. (test code = 6 ML/MIN/1.73 59542) eGFR NON- AMER. (test 5 ML/MIN/1.73 code = 84732) CALC BUN/CREAT (test code = 5 RATIO [...] code = 2219) 16 U/L COMPREHENSIVE METABOLIC [id number] 00:00:00 Test Item Value Reference Range Interpretation Comments GLUCOSE (test code = 2217) 137 MG/DL BUN (test code = 2208) 56 MG/DL CREATININE (test code = 2214) 10.21 MG/DL eGFR AMER. (test code = 6 ML/MIN/1.73 52739) eGFR NON- AMER. (test 5 ML/MIN/1.73 code = 95300) CALC BUN/CREAT (test code = 5 RATIO [...] ALT (test code = 2219) 16 U/L [id number] 00:00:00 Test Item Value Reference Range Interpretation Comments TSH, THIRD GENERATION (test >100.000 UIU/ML code = 2821) [id number] 00:00:00 Test Item Value Reference Range Interpretation Comments TSH, THIRD GENERATION (test >100.000 UIU/ML code = 2821) [id number] 00:00:00 Test Item Value Reference Range Interpretation Comments TSH, THIRD GENERATION (test >100.000 UIU/ML code = 2821) LIPID [id number] 00:00:00 Test Item Value Reference Range Interpretation Comments CHOLESTEROL (test code = 2210) 308 MG/DL TRIGLYCERIDES (test code = 2232) 280 MG/DL HDL CHOLESTEROL (test code = 2220) 66 MG/DL CALC LDL CHOL (test code = 2237) 192 MG/DL RISK RATIO LDL/HDL (test code = 2.91 RATIO 2238) LIPID [id number] 00:00:00 Test Item Value Reference Range Interpretation Comments CHOLESTEROL (test code = 2210) 308 MG/DL TRIGLYCERIDES (test code = 2232) 280 MG/DL HDL CHOLESTEROL (test code = 2220) 66 MG/DL CALC LDL CHOL (test code = 2237) 192 MG/DL RISK RATIO LDL/HDL (test code = 2.91 RATIO 2238) CBC W/AUTO [id number] 00:00:00 Test Item Value Reference Range Interpretation [...] NUCLEATED RBCS (test code = 0.00 K/UL 76562) CBC W/AUTO [id number] 00:00:00 Test Item Value Reference Range Interpretation [...] NUCLEATED RBCS (test code = 0.00 K/UL 10851) CBC W/AUTO [id number] 00:00:00 Test Item Value Reference Range Interpretation [...] NUCLEATED RBCS (test code = 0.00 K/UL 39416) COMPREHENSIVE METABOLIC [id number] 00:00:00 Test Item Value Reference Range Interpretation Comments GLUCOSE (test code = 2217) 137 MG/DL BUN (test code = 2208) 56 MG/DL CREATININE (test code = 2214) 10.21 MG/DL eGFR AMER. (test code = 6 ML/MIN/1.73 74496) eGFR NON- AMER. (test 5 ML/MIN/1.73 code = 06164) CALC BUN/CREAT (test code = 5 RATIO [...] code = 2219) 16 U/L COMPREHENSIVE METABOLIC [id number] 00:00:00 Test Item Value Reference Range Interpretation Comments GLUCOSE (test code = 2217) 137 MG/DL BUN (test code = 2208) 56 MG/DL CREATININE (test code = 2214) 10.21 MG/DL eGFR AMER. (test code = 6 ML/MIN/1.73 67146) eGFR NON- AMER. (test 5 ML/MIN/1.73 code = 50447) CALC BUN/CREAT (test code = 5 RATIO 5) SODIUM (test code = 2231) 141 MEQ/L [...] ALKALINE PHOSPHATASE (test code 83 U/L = 220) AST (test code = 2218) 13 U/L ALT (test code = 2219) 16 U/L [id number] 00:00:00 Test Item Value Reference Range Interpretation Comments TSH, THIRD GENERATION (test >100.000 UIU/ML code = 2821) [id number] 00:00:00 Test Item Value Reference Range Interpretation Comments TSH, THIRD GENERATION (test >100.000 UIU/ML code = 2821) [id number] 00:00:00 Test Item Value Reference Range Interpretation Comments TSH, THIRD GENERATION (test >100.000 UIU/ML code = 2821) [id number] 00:00:00 Test Item Value Reference Range Interpretation Comments TSH, THIRD GENERATION (test >100.000 UIU/ML code = 2821) [id number] 00:00:00 Test Item Value Reference Range Interpretation Comments TSH, THIRD GENERATION (test >100.000 UIU/ML code = 2821) LIPID [id number] 00:00:00 Test Item Value Reference Range Interpretation Comments CHOLESTEROL (test code = 2210) 308 MG/DL TRIGLYCERIDES (test code = 2232) 280 MG/DL HDL CHOLESTEROL (test code = 2220) 66 MG/DL CALC LDL CHOL (test code = 2237) 192 MG/DL RISK RATIO LDL/HDL (test code = 2.91 RATIO 2238) LIPID [id number] 00:00:00 Test Item Value Reference Range Interpretation Comments CHOLESTEROL (test code = 2210) 308 MG/DL TRIGLYCERIDES (test code = 2232) 280 MG/DL HDL CHOLESTEROL (test code = 2220) 66 MG/DL CALC LDL CHOL (test code = 2237) 192 MG/DL RISK RATIO LDL/HDL (test code = 2.91 RATIO 2238) CBC W/AUTO [id number] 00:00:00 Test Item Value Reference Range Interpretation [...] NUCLEATED RBCS (test code = 0.00 K/UL 00682) CBC W/AUTO [id number] 00:00:00 Test Item Value Reference Range Interpretation [...] NUCLEATED RBCS (test code = 0.00 K/UL 28460) CBC W/AUTO [id number] 00:00:00 Test Item Value Reference Range Interpretation [...] NUCLEATED RBCS (test code = 0.00 K/UL 05265) COMPREHENSIVE METABOLIC [id number] 00:00:00 Test Item Value Reference Range Interpretation Comments GLUCOSE (test code = 2217) 137 MG/DL BUN (test code = 2208) 56 MG/DL CREATININE (test code = 2214) 10.21 MG/DL eGFR AMER. (test code = 6 ML/MIN/1.73 78141) eGFR NON- AMER. (test 5 ML/MIN/1.73 code = 60236) CALC BUN/CREAT (test code = 5 RATIO [...] code = 2219) 16 U/L COMPREHENSIVE METABOLIC [id number] 00:00:00 Test Item Value Reference Range Interpretation Comments GLUCOSE (test code = 2217) 137 MG/DL BUN (test code = 2208) 56 MG/DL CREATININE (test code = 2214) 10.21 MG/DL eGFR AMER. (test code = 6 ML/MIN/1.73 32231) eGFR NON- AMER. (test 5 ML/MIN/1.73 code = 79322) CALC BUN/CREAT (test code = 5 RATIO [...] ALT (test code = 2219) 16 U/L LIPID [id number] 00:00:00 Test Item Value Reference Range Interpretation Comments CHOLESTEROL (test code = 2210) 308 MG/DL TRIGLYCERIDES (test code = 2232) 280 MG/DL HDL CHOLESTEROL (test code = 2220) 66 MG/DL CALC LDL CHOL (test code = 2237) 192 MG/DL RISK RATIO LDL/HDL (test code = 2.91 RATIO 2238) CBC W/AUTO [id number] 00:00:00 Test Item Value Reference Range Interpretation [...] NUCLEATED RBCS (test code = 0.00 K/UL 05698) CBC W/AUTO [id number] 00:00:00 Test Item Value Reference Range Interpretation [...] NUCLEATED RBCS (test code = 0.00 K/UL 55986) COMPREHENSIVE METABOLIC [id number] 00:00:00 Test Item Value Reference Range Interpretation Comments GLUCOSE (test code = 2217) 137 MG/DL BUN (test code = 2208) 56 MG/DL CREATININE (test code = 2214) 10.21 MG/DL eGFR AMER. (test code = 6 ML/MIN/1.73 86893) eGFR NON- AMER. (test 5 ML/MIN/1.73 code = 12453) CALC BUN/CREAT (test code = 5 RATIO [...] ALT (test code = 2219) 16 U/L [id number] 00:00:00 Test Item Value Reference Range Interpretation Comments TSH, THIRD GENERATION (test >100.000 UIU/ML code = 2821) [id number] 00:00:00 Test Item Value Reference Range Interpretation Comments TSH, THIRD GENERATION (test >100.000 UIU/ML code = 2821) [id number] 00:00:00 Test Item Value Reference Range Interpretation Comments TSH, THIRD GENERATION (test >100.000 UIU/ML code = 2821) LIPID [id number] 00:00:00 Test Item Value Reference Range Interpretation Comments CHOLESTEROL (test code = 2210) 308 MG/DL TRIGLYCERIDES (test code = 2232) 280 MG/DL HDL CHOLESTEROL (test code = 2220) 66 MG/DL CALC LDL CHOL (test code = 2237) 192 MG/DL RISK RATIO LDL/HDL (test code = 2.91 RATIO 2238) LIPID [id number] 00:00:00 Test Item Value Reference Range Interpretation Comments CHOLESTEROL (test code = 2210) 308 MG/DL TRIGLYCERIDES (test code = 2232) 280 MG/DL HDL CHOLESTEROL (test code = 2220) 66 MG/DL CALC LDL CHOL (test code = 2237) 192 MG/DL RISK RATIO LDL/HDL (test code = 2.91 RATIO 2238) CBC W/AUTO [id number] 00:00:00 Test Item Value Reference Range Interpretation [...] NUCLEATED RBCS (test code = 0.00 K/UL 81024) CBC W/AUTO [id number] 00:00:00 Test Item Value Reference Range Interpretation [...] NUCLEATED RBCS (test code = 0.00 K/UL 33348) CBC W/AUTO [id number] 00:00:00 Test Item Value Reference Range Interpretation [...] NUCLEATED RBCS (test code = 0.00 K/UL 28920) COMPREHENSIVE METABOLIC [id number] 00:00:00 Test Item Value Reference Range Interpretation Comments GLUCOSE (test code = 2217) 137 MG/DL BUN (test code = 2208) 56 MG/DL CREATININE (test code = 2214) 10.21 MG/DL eGFR AMER. (test code = 6 ML/MIN/1.73 17676) eGFR NON- AMER. (test 5 ML/MIN/1.73 code = 62973) CALC BUN/CREAT (test code = 5 RATIO [...] code = 2219) 16 U/L COMPREHENSIVE METABOLIC [id number] 00:00:00 Test Item Value Reference Range Interpretation Comments GLUCOSE (test code = 2217) 137 MG/DL BUN (test code = 2208) 56 MG/DL CREATININE (test code = 2214) 10.21 MG/DL eGFR AMER. (test code = 6 ML/MIN/1.73 21436) eGFR NON- AMER. (test 5 ML/MIN/1.73 code = 35617) CALC BUN/CREAT (test code = 5 RATIO [...] ALT (test code = 2219) 16 U/L [id number] 00:00:00 Test Item Value Reference Range Interpretation Comments TSH, THIRD GENERATION (test >100.000 UIU/ML code = 2821) [id number] 00:00:00 Test Item Value Reference Range Interpretation Comments TSH, THIRD GENERATION (test >100.000 UIU/ML code = 2821) [id number] 00:00:00 Test Item Value Reference Range Interpretation Comments TSH, THIRD GENERATION (test >100.000 UIU/ML code = 2821) LIPID [id number] 00:00:00 Test Item Value Reference Range Interpretation Comments CHOLESTEROL (test code = 2210) 308 MG/DL TRIGLYCERIDES (test code = 2232) 280 MG/DL HDL CHOLESTEROL (test code = 2220) 66 MG/DL CALC LDL CHOL (test code = 2237) 192 MG/DL RISK RATIO LDL/HDL (test code = 2.91 RATIO 2238) LIPID [id number] 00:00:00 Test Item Value Reference Range Interpretation Comments CHOLESTEROL (test code = 2210) 308 MG/DL TRIGLYCERIDES (test code = 2232) 280 MG/DL HDL CHOLESTEROL (test code = 2220) 66 MG/DL CALC LDL CHOL (test code = 2237) 192 MG/DL RISK RATIO LDL/HDL (test code = 2.91 RATIO 2238) CBC W/AUTO [id number] 00:00:00 Test Item Value Reference Range Interpretation [...] NUCLEATED RBCS (test code = 0.00 K/UL 91895) CBC W/AUTO [id number] 00:00:00 Test Item Value Reference Range Interpretation [...] NUCLEATED RBCS (test code = 0.00 K/UL 95084) CBC W/AUTO [id number] 00:00:00 Test Item Value Reference Range Interpretation [...] NUCLEATED RBCS (test code = 0.00 K/UL 27244) COMPREHENSIVE METABOLIC [id number] 00:00:00 Test Item Value Reference Range Interpretation Comments GLUCOSE (test code = 2217) 137 MG/DL BUN (test code = 2208) 56 MG/DL CREATININE (test code = 2214) 10.21 MG/DL eGFR AMER. (test code = 6 ML/MIN/1.73 35740) eGFR NON- AMER. (test 5 ML/MIN/1.73 code = 31905) CALC BUN/CREAT (test code = 5 RATIO [...] code = 2219) 16 U/L COMPREHENSIVE METABOLIC [id number] 00:00:00 Test Item Value Reference Range Interpretation Comments GLUCOSE (test code = 2217) 137 MG/DL BUN (test code = 2208) 56 MG/DL CREATININE (test code = 2214) 10.21 MG/DL eGFR AMER. (test code = 6 ML/MIN/1.73 77797) eGFR NON- AMER. (test 5 ML/MIN/1.73 code = 77809) CALC BUN/CREAT (test code = 5 RATIO [...] ALT (test code = 2219) 16 U/L [id number] 00:00:00 Test Item Value Reference Range Interpretation Comments TSH, THIRD GENERATION (test >100.000 UIU/ML code = 2821) [id number] 00:00:00 Test Item Value Reference Range Interpretation Comments TSH, THIRD GENERATION (test >100.000 UIU/ML code = 2821) [id number] 00:00:00 Test Item Value Reference Range Interpretation Comments TSH, THIRD GENERATION (test >100.000 UIU/ML code = 2821) LIPID [id number] 00:00:00 Test Item Value Reference Range Interpretation Comments CHOLESTEROL (test code = 2210) 308 MG/DL TRIGLYCERIDES (test code = 2232) 280 MG/DL HDL CHOLESTEROL (test code = 2220) 66 MG/DL CALC LDL CHOL (test code = 2237) 192 MG/DL RISK RATIO LDL/HDL (test code = 2.91 RATIO 2238) LIPID [id number] 00:00:00 Test Item Value Reference Range Interpretation Comments CHOLESTEROL (test code = 2210) 308 MG/DL TRIGLYCERIDES (test code = 2232) 280 MG/DL HDL CHOLESTEROL (test code = 2220) 66 MG/DL CALC LDL CHOL (test code = 2237) 192 MG/DL RISK RATIO LDL/HDL (test code = 2.91 RATIO 2238) CBC W/AUTO [id number] 00:00:00 Test Item Value Reference Range Interpretation [...] NUCLEATED RBCS (test code = 0.00 K/UL 25838) CBC W/AUTO [id number] 00:00:00 Test Item Value Reference Range Interpretation [...] NUCLEATED RBCS (test code = 0.00 K/UL 09945) CBC W/AUTO [id number] 00:00:00 Test Item Value Reference Range Interpretation [...] NUCLEATED RBCS (test code = 0.00 K/UL 30627) COMPREHENSIVE METABOLIC [id number] 00:00:00 Test Item Value Reference Range Interpretation Comments GLUCOSE (test code = 2217) 137 MG/DL BUN (test code = 2208) 56 MG/DL CREATININE (test code = 2214) 10.21 MG/DL eGFR AMER. (test code = 6 ML/MIN/1.73 18643) eGFR NON- AMER. (test 5 ML/MIN/1.73 code = 73426) CALC BUN/CREAT (test code = 5 RATIO [...] code = 2219) 16 U/L COMPREHENSIVE METABOLIC [id number] 00:00:00 Test Item Value Reference Range Interpretation Comments GLUCOSE (test code = 2217) 137 MG/DL BUN (test code = 2208) 56 MG/DL CREATININE (test code = 2214) 10.21 MG/DL eGFR AMER. (test code = 6 ML/MIN/1.73 60088) eGFR NON- AMER. (test 5 ML/MIN/1.73 code = 58448) CALC BUN/CREAT (test code = 5 RATIO [...] BILIRUBIN, TOTAL (test code = 0.4 MG/DL 7) ALKALINE PHOSPHATASE (test code 83 U/L = 2204) AST (test code = 2218) 13 U/L ALT (test code = 2219) 16 U/L [id number] 00:00:00 Test Item Value Reference Range Interpretation Comments TSH, THIRD GENERATION (test >100.000 UIU/ML code = 2821) [id number] 00:00:00 Test Item Value Reference Range Interpretation Comments TSH, THIRD GENERATION (test >100.000 UIU/ML code = 2821) [id number] 00:00:00 Test Item Value Reference Range Interpretation Comments TSH, THIRD GENERATION (test >100.000 UIU/ML code = 2821) LIPID [id number] 00:00:00 Test Item Value Reference Range Interpretation Comments CHOLESTEROL (test code = 2210) 308 MG/DL TRIGLYCERIDES (test code = 2232) 280 MG/DL HDL CHOLESTEROL (test code = 2220) 66 MG/DL CALC LDL CHOL (test code = 2237) 192 MG/DL RISK RATIO LDL/HDL (test code = 2.91 RATIO 2238) LIPID [id number] 00:00:00 Test Item Value Reference Range Interpretation Comments CHOLESTEROL (test code = 2210) 308 MG/DL TRIGLYCERIDES (test code = 2232) 280 MG/DL HDL CHOLESTEROL (test code = 2220) 66 MG/DL CALC LDL CHOL (test code = 2237) 192 MG/DL RISK RATIO LDL/HDL (test code = 2.91 RATIO 2238) CBC W/AUTO [id number] 00:00:00 Test Item Value Reference Range Interpretation [...] NUCLEATED RBCS (test code = 0.00 K/UL 95148) CBC W/AUTO [id number] 00:00:00 Test Item Value Reference Range Interpretation [...] NUCLEATED RBCS (test code = 0.00 K/UL 53238) CBC W/AUTO [id number] 00:00:00 Test Item Value Reference Range Interpretation [...] NUCLEATED RBCS (test code = 0.00 K/UL 10059) COMPREHENSIVE METABOLIC [id number] 00:00:00 Test Item Value Reference Range Interpretation Comments GLUCOSE (test code = 2217) 137 MG/DL BUN (test code = 2208) 56 MG/DL CREATININE (test code = 2214) 10.21 MG/DL eGFR AMER. (test code = 6 ML/MIN/1.73 02543) eGFR NON- AMER. (test 5 ML/MIN/1.73 code = 01480) CALC BUN/CREAT (test code = 5 RATIO [...] code = 2219) 16 U/L COMPREHENSIVE METABOLIC [id number] 00:00:00 Test Item Value Reference Range Interpretation Comments GLUCOSE (test code = 2217) 137 MG/DL BUN (test code = 2208) 56 MG/DL CREATININE (test code = 2214) 10.21 MG/DL eGFR AMER. (test code = 6 ML/MIN/1.73 42013) eGFR NON- AMER. (test 5 ML/MIN/1.73 code = 09663) CALC BUN/CREAT (test code = 5 RATIO [...] (test code = 2219) 16 U/L HEMOGLOBIN [id number] 00:00:00 Test Item Value Reference Range Interpretation Comments HEMOGLOBIN A1c (test code = 67533) 5.5 % HEMOGLOBIN [id number] 00:00:00 Test Item Value Reference Range Interpretation Comments HEMOGLOBIN A1c (test code = 60232) 5.5 % HEMOGLOBIN [id number] 00:00:00 Test Item Value Reference Range Interpretation Comments HEMOGLOBIN A1c (test code = 06608) 5.5 % [id number] 00:00:00 Test Item Value Reference Range Interpretation Comments TSH, THIRD GENERATION (test >100.000 UIU/ML code = 2821) [id number] 00:00:00 Test Item Value Reference Range Interpretation Comments TSH, THIRD GENERATION (test >100.000 UIU/ML code = 2821) [id number] 00:00:00 Test Item Value Reference Range Interpretation Comments TSH, THIRD GENERATION (test >100.000 UIU/ML code = 2821) HEMOGLOBIN [id number] 00:00:00 Test Item Value Reference Range Interpretation Comments HEMOGLOBIN A1c (test code = 04995) 5.5 % HEMOGLOBIN [id number] 00:00:00 Test Item Value Reference Range Interpretation Comments HEMOGLOBIN A1c (test code = 11955) 5.5 % HEMOGLOBIN [id number] 00:00:00 Test Item Value Reference Range Interpretation Comments HEMOGLOBIN A1c (test code = 40874) 5.5 % [id number] 00:00:00 Test Item Value Reference Range Interpretation Comments TSH, THIRD GENERATION (test >100.000 UIU/ML code = 2821) [id number] 00:00:00 Test Item Value Reference Range Interpretation Comments TSH, THIRD GENERATION (test >100.000 UIU/ML code = 2821) [id number] 00:00:00 Test Item Value Reference Range Interpretation Comments TSH, THIRD GENERATION (test >100.000 UIU/ML code = 2821) HEMOGLOBIN [id number] 00:00:00 Test Item Value Reference Range Interpretation Comments HEMOGLOBIN A1c (test code = 71426) 5.5 % HEMOGLOBIN [id number] 00:00:00 Test Item Value Reference Range Interpretation Comments HEMOGLOBIN A1c (test code = 26187) 5.5 % HEMOGLOBIN [id number] 00:00:00 Test Item Value Reference Range Interpretation Comments HEMOGLOBIN A1c (test code = 53475) 5.5 % HEMOGLOBIN [id number] 00:00:00 Test Item Value Reference Range Interpretation Comments HEMOGLOBIN A1c (test code = 97125) 5.5 % HEMOGLOBIN [id number] 00:00:00 Test Item Value Reference Range Interpretation Comments HEMOGLOBIN A1c (test code = 91604) 5.5 % [id number] 00:00:00 Test Item Value Reference Range Interpretation Comments TSH, THIRD GENERATION (test >100.000 UIU/ML code = 2821) [id number] 00:00:00 Test Item Value Reference Range Interpretation Comments TSH, THIRD GENERATION (test >100.000 UIU/ML code = 2821) [id number] 00:00:00 Test Item Value Reference Range Interpretation Comments TSH, THIRD GENERATION (test >100.000 UIU/ML code = 2821) [id number] 00:00:00 Test Item Value Reference Range Interpretation Comments TSH, THIRD GENERATION (test >100.000 UIU/ML code = 2821) [id number] 00:00:00 Test Item Value Reference Range Interpretation Comments TSH, THIRD GENERATION (test >100.000 UIU/ML code = 2821) HEMOGLOBIN [id number] 00:00:00 Test Item Value Reference Range Interpretation Comments HEMOGLOBIN A1c (test code = 32389) 5.5 % HEMOGLOBIN [id number] 00:00:00 Test Item Value Reference Range Interpretation Comments HEMOGLOBIN A1c (test code = 47874) 5.5 % HEMOGLOBIN [id number] 00:00:00 Test Item Value Reference Range Interpretation Comments HEMOGLOBIN A1c (test code = 30008) 5.5 % [id number] 00:00:00 Test Item Value Reference Range Interpretation Comments TSH, THIRD GENERATION (test >100.000 UIU/ML code = 2821) [id number] 00:00:00 Test Item Value Reference Range Interpretation Comments TSH, THIRD GENERATION (test >100.000 UIU/ML code = 2821) [id number] 00:00:00 Test Item Value Reference Range Interpretation Comments TSH, THIRD GENERATION (test >100.000 UIU/ML code = 2821) HEMOGLOBIN [id number] 00:00:00 Test Item Value Reference Range Interpretation Comments HEMOGLOBIN A1c (test code = 07007) 5.5 % HEMOGLOBIN [id number] 00:00:00 Test Item Value Reference Range Interpretation Comments HEMOGLOBIN A1c (test code = 44584) 5.5 % HEMOGLOBIN [id number] 00:00:00 Test Item Value Reference Range Interpretation Comments HEMOGLOBIN A1c (test code = 63333) 5.5 % [id number] 00:00:00 Test Item Value Reference Range Interpretation Comments TSH, THIRD GENERATION (test >100.000 UIU/ML code = 2821) [id number] 00:00:00 Test Item Value Reference Range Interpretation Comments TSH, THIRD GENERATION (test >100.000 UIU/ML code = 2821) [id number] 00:00:00 Test Item Value Reference Range Interpretation Comments TSH, THIRD GENERATION (test >100.000 UIU/ML code = 2821) HEMOGLOBIN [id number] 00:00:00 Test Item Value Reference Range Interpretation Comments HEMOGLOBIN A1c (test code = 93278) 5.5 % HEMOGLOBIN [id number] 00:00:00 Test Item Value Reference Range Interpretation Comments HEMOGLOBIN A1c (test code = 99606) 5.5 % HEMOGLOBIN [id number] 00:00:00 Test Item Value Reference Range Interpretation Comments HEMOGLOBIN A1c (test code = 57559) 5.5 % [id number] 00:00:00 Test Item Value Reference Range Interpretation Comments TSH, THIRD GENERATION (test >100.000 UIU/ML code = 2821) [id number] 00:00:00 Test Item Value Reference Range Interpretation Comments TSH, THIRD GENERATION (test >100.000 UIU/ML code = 2821) [id number] 00:00:00 Test Item Value Reference Range Interpretation Comments TSH, THIRD GENERATION (test >100.000 UIU/ML code = 2821) HEMOGLOBIN [id number] 00:00:00 Test Item Value Reference Range Interpretation Comments HEMOGLOBIN A1c (test code = 34599) 5.5 % HEMOGLOBIN [id number] 00:00:00 Test Item Value Reference Range Interpretation Comments HEMOGLOBIN A1c (test code = 67377) 5.5 % HEMOGLOBIN [id number] 00:00:00 Test Item Value Reference Range Interpretation Comments HEMOGLOBIN A1c (test code = 63444) 5.5 % [id number] 00:00:00 Test Item Value Reference Range Interpretation Comments TSH, THIRD GENERATION (test >100.000 UIU/ML code = 2821) [id number] 00:00:00 Test Item Value Reference Range Interpretation Comments TSH, THIRD GENERATION (test >100.000 UIU/ML code = 2821) [id number] 00:00:00 Test Item Value Reference Range Interpretation Comments TSH, THIRD GENERATION (test >100.000 UIU/ML code = 2821) CBC W/AUTO [id number] 00:00:00 Test Item Value Reference Range Interpretation [...] code = 1015) 298 K/UL CBC W/AUTO [id number] 00:00:00 Test Item Value Reference Range Interpretation [...] code = 1015) 298 K/UL CBC W/AUTO [id number] 00:00:00 Test Item Value Reference Range Interpretation [...] code = 1015) 298 K/UL COMPREHENSIVE METABOLIC [id number] 00:00:00 Test Item Value Reference Range Interpretation Comments GLUCOSE (test code = 2217) 228 MG/DL BUN (test code = 2208) 23 MG/DL CREATININE (test code = 2214) 5.99 MG/DL eGFR AMER. (test code 11 ML/MIN/1.73 = 44855) eGFR NON- AMER. (test 10 ML/MIN/1.73 code = 46425) CALC BUN/CREAT (test code = 4 RATIO [...] code = 2219) 24 U/L COMPREHENSIVE METABOLIC [id number] 00:00:00 Test Item Value Reference Range Interpretation Comments GLUCOSE (test code = 2217) 228 MG/DL BUN (test code = 2208) 23 MG/DL CREATININE (test code = 2214) 5.99 MG/DL eGFR AMER. (test code 11 ML/MIN/1.73 = 04303) eGFR NON- AMER. (test 10 ML/MIN/1.73 code = 25679) CALC BUN/CREAT (test code = 4 RATIO [...] (test code = 2219) 24 U/L LIPID [id number] 00:00:00 Test Item Value Reference Range Interpretation Comments CHOLESTEROL (test code = 2210) 335 MG/DL TRIGLYCERIDES (test code = 2232) 446 MG/DL HDL CHOLESTEROL (test code = 73 MG/DL 2220) CALC LDL CHOL (test code = 2237) (NOTE) MG/DL RISK RATIO LDL/HDL (test code = (NOTE) RATIO 2238) LIPID [id number] 00:00:00 Test Item Value Reference Range Interpretation Comments CHOLESTEROL (test code = 2210) 335 MG/DL TRIGLYCERIDES (test code = 2232) 446 MG/DL HDL CHOLESTEROL (test code = 73 MG/DL 2220) CALC LDL CHOL (test code = 2237) (NOTE) MG/DL RISK RATIO LDL/HDL (test code = (NOTE) RATIO 2238) [id number] 00:00:00 Test Item Value Reference Range Interpretation Comments TSH, THIRD GENERATION (test >100.000 UIU/ML code = 2821) [id number] 00:00:00 Test Item Value Reference Range Interpretation Comments TSH, THIRD GENERATION (test >100.000 UIU/ML code = 2821) [id number] 00:00:00 Test Item Value Reference Range Interpretation Comments TSH, THIRD GENERATION (test >100.000 UIU/ML code = 2821) CBC W/AUTO [id number] 00:00:00 Test Item Value Reference Range Interpretation [...] code = 1015) 298 K/UL CBC W/AUTO [id number] 00:00:00 Test Item Value Reference Range Interpretation [...] code = 1015) 298 K/UL CBC W/AUTO [id number] 00:00:00 Test Item Value Reference Range Interpretation [...] code = 1015) 298 K/UL COMPREHENSIVE METABOLIC [id number] 00:00:00 Test Item Value Reference Range Interpretation Comments GLUCOSE (test code = 2217) 228 MG/DL BUN (test code = 2208) 23 MG/DL CREATININE (test code = 2214) 5.99 MG/DL eGFR AMER. (test code 11 ML/MIN/1.73 = 64478) eGFR NON- AMER. (test 10 ML/MIN/1.73 code = 60915) CALC BUN/CREAT (test code = 4 RATIO 2235) SODIUM (test code = 2231) 137 MEQ/L POTASSIUM (test code = 2228) 3.7 MEQ/L CHLORIDE (test code = 2215) 91 MEQ/L CARBON DIOXIDE (test code = 29 MEQ/L 220) CALCIUM (test code = 2209) 9.7 MG/DL [...] code = 2219) 24 U/L COMPREHENSIVE METABOLIC [id number] 00:00:00 Test Item Value Reference Range Interpretation Comments GLUCOSE (test code = 2217) 228 MG/DL BUN (test code = 2208) 23 MG/DL CREATININE (test code = 2214) 5.99 MG/DL eGFR AMER. (test code 11 ML/MIN/1.73 = 70476) eGFR NON- AMER. (test 10 ML/MIN/1.73 code = 40547) CALC BUN/CREAT (test code = 4 RATIO [...] (test code = 2219) 24 U/L LIPID [id number] 00:00:00 Test Item Value Reference Range Interpretation Comments CHOLESTEROL (test code = 2210) 335 MG/DL TRIGLYCERIDES (test code = 2232) 446 MG/DL HDL CHOLESTEROL (test code = 73 MG/DL 2220) CALC LDL CHOL (test code = 2237) (NOTE) MG/DL RISK RATIO LDL/HDL (test code = (NOTE) RATIO 2238) LIPID [id number] 00:00:00 Test Item Value Reference Range Interpretation Comments CHOLESTEROL (test code = 2210) 335 MG/DL TRIGLYCERIDES (test code = 2232) 446 MG/DL HDL CHOLESTEROL (test code = 73 MG/DL 2220) CALC LDL CHOL (test code = 2237) (NOTE) MG/DL RISK RATIO LDL/HDL (test code = (NOTE) RATIO 2238) [id number] 00:00:00 Test Item Value Reference Range Interpretation Comments TSH, THIRD GENERATION (test >100.000 UIU/ML code = 2821) [id number] 00:00:00 Test Item Value Reference Range Interpretation Comments TSH, THIRD GENERATION (test >100.000 UIU/ML code = 2821) [id number] 00:00:00 Test Item Value Reference Range Interpretation Comments TSH, THIRD GENERATION (test >100.000 UIU/ML code = 2821) CBC W/AUTO [id number] 00:00:00 Test Item Value Reference Range Interpretation [...] code = 1015) 298 K/UL CBC W/AUTO [id number] 00:00:00 Test Item Value Reference Range Interpretation [...] code = 1015) 298 K/UL CBC W/AUTO [id number] 00:00:00 Test Item Value Reference Range Interpretation [...] code = 1015) 298 K/UL CBC W/AUTO [id number] 00:00:00 Test Item Value Reference Range Interpretation [...] code = 1015) 298 K/UL CBC W/AUTO [id number] 00:00:00 Test Item Value Reference Range Interpretation [...] code = 1015) 298 K/UL COMPREHENSIVE METABOLIC [id number] 00:00:00 Test Item Value Reference Range Interpretation Comments GLUCOSE (test code = 2217) 228 MG/DL BUN (test code = 2208) 23 MG/DL CREATININE (test code = 2214) 5.99 MG/DL eGFR AMER. (test code 11 ML/MIN/1.73 = 99871) eGFR NON- AMER. (test 10 ML/MIN/1.73 code = 30495) CALC BUN/CREAT (test code = 4 RATIO 2235) SODIUM (test code = 2231) 137 MEQ/L POTASSIUM (test code = 2228) 3.7 MEQ/L CHLORIDE (test code = 2215) 91 MEQ/L CARBON DIOXIDE (test code = 29 MEQ/L 2206) CALCIUM (test code = 2209) 9.7 MG/DL PROTEIN, TOTAL (test code = 8.5 G/DL 2229) ALBUMIN (test code = 2201) 5.3 G/DL CALC GLOBULIN (test code = 3.2 G/DL 2240) CALC A/G RATIO (test code = 1.7 RATIO 2234) BILIRUBIN, TOTAL (test code = 0.3 MG/DL 2206) ALKALINE PHOSPHATASE (test 66 U/L code = 2204) AST (test code = 2218) 22 U/L ALT (test code = 2219) 24 U/L COMPREHENSIVE METABOLIC [id number] 00:00:00 Test Item Value Reference Range Interpretation Comments GLUCOSE (test code = 2217) 228 MG/DL BUN (test code = 2208) 23 MG/DL CREATININE (test code = 2214) 5.99 MG/DL eGFR AMER. (test code 11 ML/MIN/1.73 = 56066) eGFR NON- AMER. (test 10 ML/MIN/1.73 code = 48414) CALC BUN/CREAT (test code = 4 RATIO 2235) SODIUM (test code = 2231) 137 MEQ/L POTASSIUM (test code = 2228) 3.7 MEQ/L CHLORIDE (test code = 2215) 91 MEQ/L CARBON DIOXIDE (test code = 29 MEQ/L 2205) CALCIUM (test code = 2209) 9.7 MG/DL PROTEIN, TOTAL (test code = 8.5 G/DL 2229) ALBUMIN (test code = 2201) 5.3 G/DL CALC GLOBULIN (test code = 3.2 G/DL 2240) CALC A/G RATIO (test code = 1.7 RATIO 2234) BILIRUBIN, TOTAL (test code = 0.3 MG/DL 7) ALKALINE PHOSPHATASE (test 66 U/L code = 2204) AST (test code = 2218) 22 U/L ALT (test code = 2219) 24 U/L LIPID [id number] 00:00:00 Test Item Value Reference Range Interpretation Comments CHOLESTEROL (test code = 2210) 335 MG/DL TRIGLYCERIDES (test code = 2232) 446 MG/DL HDL CHOLESTEROL (test code = 73 MG/DL 2220) CALC LDL CHOL (test code = 2237) (NOTE) MG/DL RISK RATIO LDL/HDL (test code = (NOTE) RATIO 2238) LIPID [id number] 00:00:00 Test Item Value Reference Range Interpretation Comments CHOLESTEROL (test code = 2210) 335 MG/DL TRIGLYCERIDES (test code = 2232) 446 MG/DL HDL CHOLESTEROL (test code = 73 MG/DL 2220) CALC LDL CHOL (test code = 2237) (NOTE) MG/DL RISK RATIO LDL/HDL (test code = (NOTE) RATIO 2238) [id number] 00:00:00 Test Item Value Reference Range Interpretation Comments TSH, THIRD GENERATION (test >100.000 UIU/ML code = 2821) [id number] 00:00:00 Test Item Value Reference Range Interpretation Comments TSH, THIRD GENERATION (test >100.000 UIU/ML code = 2821) [id number] 00:00:00 Test Item Value Reference Range Interpretation Comments TSH, THIRD GENERATION (test >100.000 UIU/ML code = 2821) COMPREHENSIVE METABOLIC [id number] 00:00:00 Test Item Value Reference Range Interpretation Comments GLUCOSE (test code = 2217) 228 MG/DL BUN (test code = 2208) 23 MG/DL CREATININE (test code = 2214) 5.99 MG/DL eGFR AMER. (test code 11 ML/MIN/1.73 = 83466) eGFR NON- AMER. (test 10 ML/MIN/1.73 code = 25568) CALC BUN/CREAT (test code = 4 RATIO [...] (test code = 2219) 24 U/L LIPID [id number] 00:00:00 Test Item Value Reference Range Interpretation Comments CHOLESTEROL (test code = 2210) 335 MG/DL TRIGLYCERIDES (test code = 2232) 446 MG/DL HDL CHOLESTEROL (test code = 73 MG/DL 0) CALC LDL CHOL (test code = 2237) (NOTE) MG/DL RISK RATIO LDL/HDL (test code = (NOTE) RATIO 2238) [id number] 00:00:00 Test Item Value Reference Range Interpretation Comments TSH, THIRD GENERATION (test >100.000 UIU/ML code = 2821) [id number] 00:00:00 Test Item Value Reference Range Interpretation Comments TSH, THIRD GENERATION (test >100.000 UIU/ML code = 2821) CBC W/AUTO [id number] 00:00:00 Test Item Value Reference Range Interpretation [...] code = 1015) 298 K/UL CBC W/AUTO [id number] 00:00:00 Test Item Value Reference Range Interpretation [...] code = 1015) 298 K/UL CBC W/AUTO [id number] 00:00:00 Test Item Value Reference Range Interpretation [...] code = 1015) 298 K/UL COMPREHENSIVE METABOLIC [id number] 00:00:00 Test Item Value Reference Range Interpretation Comments GLUCOSE (test code = 2217) 228 MG/DL BUN (test code = 2208) 23 MG/DL CREATININE (test code = 2214) 5.99 MG/DL eGFR AMER. (test code 11 ML/MIN/1.73 = 41642) eGFR NON- AMER. (test 10 ML/MIN/1.73 code = 35459) CALC BUN/CREAT (test code = 4 RATIO [...] code = 2219) 24 U/L COMPREHENSIVE METABOLIC [id number] 00:00:00 Test Item Value Reference Range Interpretation Comments GLUCOSE (test code = 2217) 228 MG/DL BUN (test code = 2208) 23 MG/DL CREATININE (test code = 2214) 5.99 MG/DL eGFR AMER. (test code 11 ML/MIN/1.73 = 71650) eGFR NON- AMER. (test 10 ML/MIN/1.73 code = 09702) CALC BUN/CREAT (test code = 4 RATIO [...] = 0.3 MG/DL 2207) ALKALINE PHOSPHATASE (test 66 U/L code = 2204) AST (test code = 2218) 22 U/L ALT (test code = 2219) 24 U/L LIPID [id number] 00:00:00 Test Item Value Reference Range Interpretation Comments CHOLESTEROL (test code = 2210) 335 MG/DL TRIGLYCERIDES (test code = 2232) 446 MG/DL HDL CHOLESTEROL (test code = 73 MG/DL 2220) CALC LDL CHOL (test code = 2237) (NOTE) MG/DL RISK RATIO LDL/HDL (test code = (NOTE) RATIO 2238) LIPID [id number] 00:00:00 Test Item Value Reference Range Interpretation Comments CHOLESTEROL (test code = 2210) 335 MG/DL TRIGLYCERIDES (test code = 2232) 446 MG/DL HDL CHOLESTEROL (test code = 73 MG/DL 2220) CALC LDL CHOL (test code = 2237) (NOTE) MG/DL RISK RATIO LDL/HDL (test code = (NOTE) RATIO 2238) [id number] 00:00:00 Test Item Value Reference Range Interpretation Comments TSH, THIRD GENERATION (test >100.000 UIU/ML code = 2821) [id number] 00:00:00 Test Item Value Reference Range Interpretation Comments TSH, THIRD GENERATION (test >100.000 UIU/ML code = 2821) [id number] 00:00:00 Test Item Value Reference Range Interpretation Comments TSH, THIRD GENERATION (test >100.000 UIU/ML code = 2821) CBC W/AUTO [id number] 00:00:00 Test Item Value Reference Range Interpretation [...] code = 1015) 298 K/UL CBC W/AUTO [id number] 00:00:00 Test Item Value Reference Range Interpretation [...] code = 1015) 298 K/UL CBC W/AUTO [id number] 00:00:00 Test Item Value Reference Range Interpretation [...] code = 1015) 298 K/UL COMPREHENSIVE METABOLIC [id number] 00:00:00 Test Item Value Reference Range Interpretation Comments GLUCOSE (test code = 2217) 228 MG/DL BUN (test code = 2208) 23 MG/DL CREATININE (test code = 2214) 5.99 MG/DL eGFR AMER. (test code 11 ML/MIN/1.73 = 07830) eGFR NON- AMER. (test 10 ML/MIN/1.73 code = 77034) CALC BUN/CREAT (test code = 4 RATIO [...] code = 2219) 24 U/L COMPREHENSIVE METABOLIC [id number] 00:00:00 Test Item Value Reference Range Interpretation Comments GLUCOSE (test code = 2217) 228 MG/DL BUN (test code = 2208) 23 MG/DL CREATININE (test code = 2214) 5.99 MG/DL eGFR AMER. (test code 11 ML/MIN/1.73 = 36711) eGFR NON- AMER. (test 10 ML/MIN/1.73 code = 74186) CALC BUN/CREAT (test code = 4 RATIO 2235) SODIUM (test code = 2231) 137 MEQ/L POTASSIUM (test code = 2228) 3.7 MEQ/L CHLORIDE (test code = 2215) 91 MEQ/L CARBON DIOXIDE (test code = 29 MEQ/L 220) CALCIUM (test code = 2209) 9.7 MG/DL [...] (test code = 2219) 24 U/L LIPID [id number] 00:00:00 Test Item Value Reference Range Interpretation Comments CHOLESTEROL (test code = 2210) 335 MG/DL TRIGLYCERIDES (test code = 2232) 446 MG/DL HDL CHOLESTEROL (test code = 73 MG/DL 2220) CALC LDL CHOL (test code = 2237) (NOTE) MG/DL RISK RATIO LDL/HDL (test code = (NOTE) RATIO 2238) LIPID [id number] 00:00:00 Test Item Value Reference Range Interpretation Comments CHOLESTEROL (test code = 2210) 335 MG/DL TRIGLYCERIDES (test code = 2232) 446 MG/DL HDL CHOLESTEROL (test code = 73 MG/DL 2220) CALC LDL CHOL (test code = 2237) (NOTE) MG/DL RISK RATIO LDL/HDL (test code = (NOTE) RATIO 2238) [id number] 00:00:00 Test Item Value Reference Range Interpretation Comments TSH, THIRD GENERATION (test >100.000 UIU/ML code = 2821) [id number] 00:00:00 Test Item Value Reference Range Interpretation Comments TSH, THIRD GENERATION (test >100.000 UIU/ML code = 2821) [id number] 00:00:00 Test Item Value Reference Range Interpretation Comments TSH, THIRD GENERATION (test >100.000 UIU/ML code = 2821) CBC W/AUTO [id number] 00:00:00 Test Item Value Reference Range Interpretation [...] code = 1015) 298 K/UL CBC W/AUTO [id number] 00:00:00 Test Item Value Reference Range Interpretation [...] code = 1015) 298 K/UL CBC W/AUTO [id number] 00:00:00 Test Item Value Reference Range Interpretation [...] code = 1015) 298 K/UL COMPREHENSIVE METABOLIC [id number] 00:00:00 Test Item Value Reference Range Interpretation Comments GLUCOSE (test code = 2217) 228 MG/DL BUN (test code = 2208) 23 MG/DL CREATININE (test code = 2214) 5.99 MG/DL eGFR AMER. (test code 11 ML/MIN/1.73 = 96053) eGFR NON- AMER. (test 10 ML/MIN/1.73 code = 75071) CALC BUN/CREAT (test code = 4 RATIO [...] code = 2219) 24 U/L COMPREHENSIVE METABOLIC [id number] 00:00:00 Test Item Value Reference Range Interpretation Comments GLUCOSE (test code = 2217) 228 MG/DL BUN (test code = 2208) 23 MG/DL CREATININE (test code = 2214) 5.99 MG/DL eGFR AMER. (test code 11 ML/MIN/1.73 = 32341) eGFR NON- AMER. (test 10 ML/MIN/1.73 code = 83077) CALC BUN/CREAT (test code = 4 RATIO 2235) SODIUM (test code = 2231) 137 MEQ/L POTASSIUM (test code = 2228) 3.7 MEQ/L CHLORIDE (test code = 2215) 91 MEQ/L CARBON DIOXIDE (test code = 29 MEQ/L 220) CALCIUM (test code = 2209) 9.7 MG/DL [...] (test code = 2219) 24 U/L LIPID [id number] 00:00:00 Test Item Value Reference Range Interpretation Comments CHOLESTEROL (test code = 2210) 335 MG/DL TRIGLYCERIDES (test code = 2232) 446 MG/DL HDL CHOLESTEROL (test code = 73 MG/DL 2220) CALC LDL CHOL (test code = 2237) (NOTE) MG/DL RISK RATIO LDL/HDL (test code = (NOTE) RATIO 2238) LIPID [id number] 00:00:00 Test Item Value Reference Range Interpretation Comments CHOLESTEROL (test code = 2210) 335 MG/DL TRIGLYCERIDES (test code = 2232) 446 MG/DL HDL CHOLESTEROL (test code = 73 MG/DL 2220) CALC LDL CHOL (test code = 2237) (NOTE) MG/DL RISK RATIO LDL/HDL (test code = (NOTE) RATIO 2238) [id number] 00:00:00 Test Item Value Reference Range Interpretation Comments TSH, THIRD GENERATION (test >100.000 UIU/ML code = 2821) [id number] 00:00:00 Test Item Value Reference Range Interpretation Comments TSH, THIRD GENERATION (test >100.000 UIU/ML code = 2821) [id number] 00:00:00 Test Item Value Reference Range Interpretation Comments TSH, THIRD GENERATION (test >100.000 UIU/ML code = 2821) CBC W/AUTO [id number] 00:00:00 Test Item Value Reference Range Interpretation [...] code = 1015) 298 K/UL CBC W/AUTO [id number] 00:00:00 Test Item Value Reference Range Interpretation [...] code = 1015) 298 K/UL CBC W/AUTO [id number] 00:00:00 Test Item Value Reference Range Interpretation [...] code = 1015) 298 K/UL COMPREHENSIVE METABOLIC [id number] 00:00:00 Test Item Value Reference Range Interpretation Comments GLUCOSE (test code = 2217) 228 MG/DL BUN (test code = 2208) 23 MG/DL CREATININE (test code = 2214) 5.99 MG/DL eGFR AMER. (test code 11 ML/MIN/1.73 = 55976) eGFR NON- AMER. (test 10 ML/MIN/1.73 code = 43211) CALC BUN/CREAT (test code = 4 RATIO [...] code = 2219) 24 U/L COMPREHENSIVE METABOLIC [id number] 00:00:00 Test Item Value Reference Range Interpretation Comments GLUCOSE (test code = 2217) 228 MG/DL BUN (test code = 2208) 23 MG/DL CREATININE (test code = 2214) 5.99 MG/DL eGFR AMER. (test code 11 ML/MIN/1.73 = 61468) eGFR NON- AMER. (test 10 ML/MIN/1.73 code = 12333) CALC BUN/CREAT (test code = 4 RATIO [...] (test code = 2219) 24 U/L LIPID [id number] 00:00:00 Test Item Value Reference Range Interpretation Comments CHOLESTEROL (test code = 2210) 335 MG/DL TRIGLYCERIDES (test code = 2232) 446 MG/DL HDL CHOLESTEROL (test code = 73 MG/DL 2220) CALC LDL CHOL (test code = 2237) (NOTE) MG/DL RISK RATIO LDL/HDL (test code = (NOTE) RATIO 2238) LIPID [id number] 00:00:00 Test Item Value Reference Range Interpretation Comments CHOLESTEROL (test code = 2210) 335 MG/DL TRIGLYCERIDES (test code = 2232) 446 MG/DL HDL CHOLESTEROL (test code = 73 MG/DL 2220) CALC LDL CHOL (test code = 2237) (NOTE) MG/DL RISK RATIO LDL/HDL (test code = (NOTE) RATIO 2238) [id number] 00:00:00 Test Item Value Reference Range Interpretation Comments TSH, THIRD GENERATION (test >100.000 UIU/ML code = 2821) [id number] 00:00:00 Test Item Value Reference Range Interpretation Comments TSH, THIRD GENERATION (test >100.000 UIU/ML code = 2821) [id number] 00:00:00 Test Item Value Reference Range Interpretation Comments TSH, THIRD GENERATION (test >100.000 UIU/ML code = 2821) [id number] 00:00:00 Test Item Value Reference Range Interpretation Comments TSH, THIRD GENERATION (test >100.000 UIU/ML code = 2821) [id number] 00:00:00 Test Item Value Reference Range Interpretation Comments TSH, THIRD GENERATION (test >100.000 UIU/ML code = 2821) [id number] 00:00:00 Test Item Value Reference Range Interpretation Comments TSH, THIRD GENERATION (test >100.000 UIU/ML code = 2821) LIPID [id number] 00:00:00 Test Item Value Reference Range Interpretation Comments CHOLESTEROL (test code = 2210) 316 MG/DL TRIGLYCERIDES (test code = 2232) 547 MG/DL HDL CHOLESTEROL (test code = 54 MG/DL 2220) CALC LDL CHOL (test code = 2237) (NOTE) MG/DL RISK RATIO LDL/HDL (test code = (NOTE) RATIO 2238) LIPID [id number] 00:00:00 Test Item Value Reference Range Interpretation Comments CHOLESTEROL (test code = 2210) 316 MG/DL TRIGLYCERIDES (test code = 2232) 547 MG/DL HDL CHOLESTEROL (test code = 54 MG/DL 2220) CALC LDL CHOL (test code = 2237) (NOTE) MG/DL RISK RATIO LDL/HDL (test code = (NOTE) RATIO 2238) [id number] 00:00:00 Test Item Value Reference Range Interpretation Comments TSH, THIRD GENERATION (test >100.000 UIU/ML code = 2821) [id number] 00:00:00 Test Item Value Reference Range Interpretation Comments TSH, THIRD GENERATION (test >100.000 UIU/ML code = 2821) [id number] 00:00:00 Test Item Value Reference Range Interpretation Comments TSH, THIRD GENERATION (test >100.000 UIU/ML code = 2821) LIPID [id number] 00:00:00 Test Item Value Reference Range Interpretation Comments CHOLESTEROL (test code = 2210) 316 MG/DL TRIGLYCERIDES (test code = 2232) 547 MG/DL HDL CHOLESTEROL (test code = 54 MG/DL 2220) CALC LDL CHOL (test code = 2237) (NOTE) MG/DL RISK RATIO LDL/HDL (test code = (NOTE) RATIO 2238) LIPID [id number] 00:00:00 Test Item Value Reference Range Interpretation Comments CHOLESTEROL (test code = 2210) 316 MG/DL TRIGLYCERIDES (test code = 2232) 547 MG/DL HDL CHOLESTEROL (test code = 54 MG/DL 2220) CALC LDL CHOL (test code = 2237) (NOTE) MG/DL RISK RATIO LDL/HDL (test code = (NOTE) RATIO 2238) [id number] 00:00:00 Test Item Value Reference Range Interpretation Comments TSH, THIRD GENERATION (test >100.000 UIU/ML code = 2821) [id number] 00:00:00 Test Item Value Reference Range Interpretation Comments TSH, THIRD GENERATION (test >100.000 UIU/ML code = 2821) [id number] 00:00:00 Test Item Value Reference Range Interpretation Comments TSH, THIRD GENERATION (test >100.000 UIU/ML code = 2821) [id number] 00:00:00 Test Item Value Reference Range Interpretation Comments TSH, THIRD GENERATION (test >100.000 UIU/ML code = 2821) LIPID [id number] 00:00:00 Test Item Value Reference Range Interpretation Comments CHOLESTEROL (test code = 2210) 316 MG/DL TRIGLYCERIDES (test code = 2232) 547 MG/DL HDL CHOLESTEROL (test code = 54 MG/DL 2220) CALC LDL CHOL (test code = 2237) (NOTE) MG/DL RISK RATIO LDL/HDL (test code = (NOTE) RATIO 2238) LIPID [id number] 00:00:00 Test Item Value Reference Range Interpretation Comments CHOLESTEROL (test code = 2210) 316 MG/DL TRIGLYCERIDES (test code = 2232) 547 MG/DL HDL CHOLESTEROL (test code = 54 MG/DL 2220) CALC LDL CHOL (test code = 2237) (NOTE) MG/DL RISK RATIO LDL/HDL (test code = (NOTE) RATIO 2238) [id number] 00:00:00 Test Item Value Reference Range Interpretation Comments TSH, THIRD GENERATION (test >100.000 UIU/ML code = 2821) LIPID [id number] 00:00:00 Test Item Value Reference Range Interpretation Comments CHOLESTEROL (test code = 2210) 316 MG/DL TRIGLYCERIDES (test code = 2232) 547 MG/DL HDL CHOLESTEROL (test code = 54 MG/DL 2220) CALC LDL CHOL (test code = 2237) (NOTE) MG/DL RISK RATIO LDL/HDL (test code = (NOTE) RATIO 2238) [id number] 00:00:00 Test Item Value Reference Range Interpretation Comments TSH, THIRD GENERATION (test >100.000 UIU/ML code = 2821) [id number] 00:00:00 Test Item Value Reference Range Interpretation Comments TSH, THIRD GENERATION (test >100.000 UIU/ML code = 2821) [id number] 00:00:00 Test Item Value Reference Range Interpretation Comments TSH, THIRD GENERATION (test >100.000 UIU/ML code = 2821) LIPID [id number] 00:00:00 Test Item Value Reference Range Interpretation Comments CHOLESTEROL (test code = 2210) 316 MG/DL TRIGLYCERIDES (test code = 2232) 547 MG/DL HDL CHOLESTEROL (test code = 54 MG/DL 2220) CALC LDL CHOL (test code = 2237) (NOTE) MG/DL RISK RATIO LDL/HDL (test code = (NOTE) RATIO 2238) LIPID [id number] 00:00:00 Test Item Value Reference Range Interpretation Comments CHOLESTEROL (test code = 2210) 316 MG/DL TRIGLYCERIDES (test code = 2232) 547 MG/DL HDL CHOLESTEROL (test code = 54 MG/DL 2220) CALC LDL CHOL (test code = 2237) (NOTE) MG/DL RISK RATIO LDL/HDL (test code = (NOTE) RATIO 2238) [id number] 00:00:00 Test Item Value Reference Range Interpretation Comments TSH, THIRD GENERATION (test >100.000 UIU/ML code = 2821) [id number] 00:00:00 Test Item Value Reference Range Interpretation Comments TSH, THIRD GENERATION (test >100.000 UIU/ML code = 2821) [id number] 00:00:00 Test Item Value Reference Range Interpretation Comments TSH, THIRD GENERATION (test >100.000 UIU/ML code = 2821) LIPID [id number] 00:00:00 Test Item Value Reference Range Interpretation Comments CHOLESTEROL (test code = 2210) 316 MG/DL TRIGLYCERIDES (test code = 2232) 547 MG/DL HDL CHOLESTEROL (test code = 54 MG/DL 2220) CALC LDL CHOL (test code = 2237) (NOTE) MG/DL RISK RATIO LDL/HDL (test code = (NOTE) RATIO 2238) LIPID [id number] 00:00:00 Test Item Value Reference Range Interpretation Comments CHOLESTEROL (test code = 2210) 316 MG/DL TRIGLYCERIDES (test code = 2232) 547 MG/DL HDL CHOLESTEROL (test code = 54 MG/DL 2220) CALC LDL CHOL (test code = 2237) (NOTE) MG/DL RISK RATIO LDL/HDL (test code = (NOTE) RATIO 2238) [id number] 00:00:00 Test Item Value Reference Range Interpretation Comments TSH, THIRD GENERATION (test >100.000 UIU/ML code = 2821) [id number] 00:00:00 Test Item Value Reference Range Interpretation Comments TSH, THIRD GENERATION (test >100.000 UIU/ML code = 2821) [id number] 00:00:00 Test Item Value Reference Range Interpretation Comments TSH, THIRD GENERATION (test >100.000 UIU/ML code = 2821) LIPID [id number] 00:00:00 Test Item Value Reference Range Interpretation Comments CHOLESTEROL (test code = 2210) 316 MG/DL TRIGLYCERIDES (test code = 2232) 547 MG/DL HDL CHOLESTEROL (test code = 54 MG/DL 2220) CALC LDL CHOL (test code = 2237) (NOTE) MG/DL RISK RATIO LDL/HDL (test code = (NOTE) RATIO 2238) LIPID [id number] 00:00:00 Test Item Value Reference Range Interpretation Comments CHOLESTEROL (test code = 2210) 316 MG/DL TRIGLYCERIDES (test code = 2232) 547 MG/DL HDL CHOLESTEROL (test code = 54 MG/DL 2220) CALC LDL CHOL (test code = 2237) (NOTE) MG/DL RISK RATIO LDL/HDL (test code = (NOTE) RATIO 2238) [id number] 00:00:00 Test Item Value Reference Range Interpretation Comments TSH, THIRD GENERATION (test >100.000 UIU/ML code = 2821) [id number] 00:00:00 Test Item Value Reference Range Interpretation Comments TSH, THIRD GENERATION (test >100.000 UIU/ML code = 2821) [id number] 00:00:00 Test Item Value Reference Range Interpretation Comments TSH, THIRD GENERATION (test >100.000 UIU/ML code = 2821) LIPID [id number] 00:00:00 Test Item Value Reference Range Interpretation Comments CHOLESTEROL (test code = 2210) 316 MG/DL TRIGLYCERIDES (test code = 2232) 547 MG/DL HDL CHOLESTEROL (test code = 54 MG/DL 2220) CALC LDL CHOL (test code = 2237) (NOTE) MG/DL RISK RATIO LDL/HDL (test code = (NOTE) RATIO 2238) LIPID [id number] 00:00:00 Test Item Value Reference Range Interpretation [...] code = Normal 762) HEPATITIS B SURFACE [id number] 09:48:00 Test Item Value Reference Range Interpretation [...] (BEAKER) (test code = 1+ few 966) [id number] 05:55:00 Test Item Value Reference Range Interpretation Comments PHOSPHORUS (BEAKER) (test code = 9.2 mg/dL 2.3-4.7 HH 604) Unit Manager Rn ID - RA MBASIC METABOLIC [id number] 05:04:00 Test Item Value Reference Range Interpretation [...] S NOT APPLICABLE FOR DIALYSIS PATIEN TS. Unit Manager Rn ID Orestes KNAPP [facility] WITH PLATELET COUNT + MANUAL [id number] 04:42:00 Test Item Value Reference Range Interpretation [...] (BEAKER) (test code = 413) BASIC METABOLIC [id number] 03:00:00 Test Item Value Reference Range Interpretation [...] S NOT APPLICABLE FOR DIALYSIS PATIEN TS. Unit Manager Rn ID - RA [id number] 02:58:00 Test Item Value Reference Range Interpretation Comments PHOSPHORUS (BEAKER) (test code = 7.4 mg/dL 2.3-4.7 H 604) Unit Manager Rn ID - RA MCBC W/PLT COUNT & AUTO [id number] 02:38:00 Test Item Value Reference Range Interpretation [...] PERCENT (BEAKER) (test code = 2801) SARS-COV2/RT-PCR ([facility])2019-12-14 11:10:00 Test Item Value Reference Range Interpretation Comments SARS-COV2/RT-PCR (test code Negative Not Detected, Negative, = [id number]) See external report for linked test SARS-COV-2 PERFORMING LAB [facility] (test code = 3836851) Negative results do not preclude SARS-CoV-2 infection [...] of the Act.Fact Sheet for Healthcare Pro viders:https://www.[employer]/Documents/Xpert%20Xpress%20SARS%20CoV-2/Fact%20Sh eets/302-3802%90IBYV-YYF-2%20HEALTHCARE%20PROVIDERS%20FACT%20SHEET.pdfFact Sheet for Healthcare Patients:[email or web address]://www.[employer]/Documents/Xpert%20Xpress%20SARS%20CoV-2/Fact%20Sheets/302-3801%20SARS-COV -2%20PATIENT%20FACT%20SHEET.pdfPerforming Laboratory:[facility], [place] [address]KTVXI METABOLIC [id number] 09:53:00 Test Item Value Reference Range Interpretation [...] S NOT APPLICABLE FOR DIALYSIS PATIEN TS. Unit Manager Rn ID - ROSIANGPROTHROMBIN [id number] 09:39:00 Test Item Value Reference Range Interpretation [...] 0-0 (BEAKER) (test code = 413) URINE [id number] 11:01:00 Test Item Value Reference Range Interpretation Comments CULTURE (BEAKER) ENTEROCOCCUS A 40-49,000 c ol/mL (test code = 1095) FAECALIS Enterococ cus faecalis Ampicillin (test S code = 26) Linezolid (test code S = 40) Nitrofurantoin (test S code = 23) Tetracycline (test R code = 2) Vancomycin (test S code = 13) <10,000 col/mL skin floraHEMOGLOBIN [id number] 00:00:00 Test Item Value Reference Range Interpretation Comments HEMOGLOBIN A1c (test code = 33682) 6.9 % HEMOGLOBIN [id number] 00:00:00 Test Item Value Reference Range Interpretation Comments HEMOGLOBIN A1c (test code = 00226) 6.9 % HEMOGLOBIN [id number] 00:00:00 Test Item Value Reference Range Interpretation Comments HEMOGLOBIN A1c (test code = 55826) 6.9 % LIPID [id number] 00:00:00 Test Item Value Reference Range Interpretation Comments CHOLESTEROL (test code = 2210) 309 MG/DL TRIGLYCERIDES (test code = 2232) 587 MG/DL HDL CHOLESTEROL (test code = 48 MG/DL 2220) CALC LDL CHOL (test code = 2237) (NOTE) MG/DL RISK RATIO LDL/HDL (test code = (NOTE) RATIO 2238) LIPID [id number] 00:00:00 Test Item Value Reference Range Interpretation [...] THYROX. BIND. CAPAC. (test 1.5 code = 90687) T4 (THYROXINE) (test code = <1.2 UG/DL 2819) CORRECTED T4 (FTI) (test code (NOTE) UG/DL = 2820) TSH, THIRD GENERATION (test >100.000 UIU/ML code = 2821) THYROID II PROFILE (TU,T4,FTI,TSH) [ADDED]2019-10-26 00:00:00 Test Item Value Reference Range Interpretation Comments T-UPTAKE (test code = 2817) 18.4 % THYROX. BIND. CAPAC. (test 1.5 code = 38007) T4 (THYROXINE) (test code = <1.2 UG/DL 2819) CORRECTED T4 (FTI) (test code (NOTE) UG/DL = 2820) TSH, THIRD GENERATION (test >100.000 UIU/ML code = 2821) HEMOGLOBIN [id number] 00:00:00 Test Item Value Reference Range Interpretation Comments HEMOGLOBIN A1c (test code = 51302) 6.9 % HEMOGLOBIN [id number] 00:00:00 Test Item Value Reference Range Interpretation Comments HEMOGLOBIN A1c (test code = 65816) 6.9 % HEMOGLOBIN [id number] 00:00:00 Test Item Value Reference Range Interpretation Comments HEMOGLOBIN A1c (test code = 72560) 6.9 % LIPID [id number] 00:00:00 Test Item Value Reference Range Interpretation Comments CHOLESTEROL (test code = 2210) 309 MG/DL TRIGLYCERIDES (test code = 2232) 587 MG/DL HDL CHOLESTEROL (test code = 48 MG/DL 2220) CALC LDL CHOL (test code = 2237) (NOTE) MG/DL RISK RATIO LDL/HDL (test code = (NOTE) RATIO 2238) LIPID [id number] 00:00:00 Test Item Value Reference Range Interpretation [...] THYROX. BIND. CAPAC. (test 1.5 code = 36794) T4 (THYROXINE) (test code = <1.2 UG/DL 2819) CORRECTED T4 (FTI) (test code (NOTE) UG/DL = 2820) TSH, THIRD GENERATION (test >100.000 UIU/ML code = 2821) THYROID II PROFILE (TU,T4,FTI,TSH) [ADDED]2019-10-26 00:00:00 Test Item Value Reference Range Interpretation Comments T-UPTAKE (test code = 2817) 18.4 % THYROX. BIND. CAPAC. (test 1.5 code = 16844) T4 (THYROXINE) (test code = <1.2 UG/DL 2819) CORRECTED T4 (FTI) (test code (NOTE) UG/DL = 2820) TSH, THIRD GENERATION (test >100.000 UIU/ML code = 2821) HEMOGLOBIN [id number] 00:00:00 Test Item Value Reference Range Interpretation Comments HEMOGLOBIN A1c (test code = 42528) 6.9 % HEMOGLOBIN [id number] 00:00:00 Test Item Value Reference Range Interpretation Comments HEMOGLOBIN A1c (test code = 64205) 6.9 % HEMOGLOBIN [id number] 00:00:00 Test Item Value Reference Range Interpretation Comments HEMOGLOBIN A1c (test code = 62892) 6.9 % HEMOGLOBIN [id number] 00:00:00 Test Item Value Reference Range Interpretation Comments HEMOGLOBIN A1c (test code = 54795) 6.9 % HEMOGLOBIN [id number] 00:00:00 Test Item Value Reference Range Interpretation Comments HEMOGLOBIN A1c (test code = 89009) 6.9 % LIPID [id number] 00:00:00 Test Item Value Reference Range Interpretation Comments CHOLESTEROL (test code = 2210) 309 MG/DL TRIGLYCERIDES (test code = 2232) 587 MG/DL HDL CHOLESTEROL (test code = 48 MG/DL 2220) CALC LDL CHOL (test code = 2237) (NOTE) MG/DL RISK RATIO LDL/HDL (test code = (NOTE) RATIO 2238) LIPID [id number] 00:00:00 Test Item Value Reference Range Interpretation [...] THYROX. BIND. CAPAC. (test 1.5 code = 72789) T4 (THYROXINE) (test code = <1.2 UG/DL 2819) CORRECTED T4 (FTI) (test code (NOTE) UG/DL = 2820) TSH, THIRD GENERATION (test >100.000 UIU/ML code = 2821) THYROID II PROFILE (TU,T4,FTI,TSH) [ADDED]2019-10-26 00:00:00 Test Item Value Reference Range Interpretation Comments T-UPTAKE (test code = 2817) 18.4 % THYROX. BIND. CAPAC. (test 1.5 code = 38565) T4 (THYROXINE) (test code = <1.2 UG/DL 2819) CORRECTED T4 (FTI) (test code (NOTE) UG/DL = 2820) TSH, THIRD GENERATION (test >100.000 UIU/ML code = 2821) LIPID [id number] 00:00:00 Test Item Value Reference Range Interpretation [...] THYROX. BIND. CAPAC. (test 1.5 code = 05194) T4 (THYROXINE) (test code = <1.2 UG/DL 2819) CORRECTED T4 (FTI) (test code (NOTE) UG/DL = 2820) TSH, THIRD GENERATION (test >100.000 UIU/ML code = 2821) HEMOGLOBIN [id number] 00:00:00 Test Item Value Reference Range Interpretation Comments HEMOGLOBIN A1c (test code = 10364) 6.9 % HEMOGLOBIN [id number] 00:00:00 Test Item Value Reference Range Interpretation Comments HEMOGLOBIN A1c (test code = 24169) 6.9 % HEMOGLOBIN [id number] 00:00:00 Test Item Value Reference Range Interpretation Comments HEMOGLOBIN A1c (test code = 63448) 6.9 % LIPID [id number] 00:00:00 Test Item Value Reference Range Interpretation Comments CHOLESTEROL (test code = 2210) 309 MG/DL TRIGLYCERIDES (test code = 2232) 587 MG/DL HDL CHOLESTEROL (test code = 48 MG/DL 2220) CALC LDL CHOL (test code = 2237) (NOTE) MG/DL RISK RATIO LDL/HDL (test code = (NOTE) RATIO 2238) LIPID [id number] 00:00:00 Test Item Value Reference Range Interpretation [...] THYROX. BIND. CAPAC. (test 1.5 code = 87101) T4 (THYROXINE) (test code = <1.2 UG/DL 2819) CORRECTED T4 (FTI) (test code (NOTE) UG/DL = 2820) TSH, THIRD GENERATION (test >100.000 UIU/ML code = 2821) THYROID II PROFILE (TU,T4,FTI,TSH) [ADDED]2019-10-26 00:00:00 Test Item Value Reference Range Interpretation Comments T-UPTAKE (test code = 2817) 18.4 % THYROX. BIND. CAPAC. (test 1.5 code = 21174) T4 (THYROXINE) (test code = <1.2 UG/DL 2819) CORRECTED T4 (FTI) (test code (NOTE) UG/DL = 2820) TSH, THIRD GENERATION (test >100.000 UIU/ML code = 2821) HEMOGLOBIN [id number] 00:00:00 Test Item Value Reference Range Interpretation Comments HEMOGLOBIN A1c (test code = 30582) 6.9 % HEMOGLOBIN [id number] 00:00:00 Test Item Value Reference Range Interpretation Comments HEMOGLOBIN A1c (test code = 63702) 6.9 % HEMOGLOBIN [id number] 00:00:00 Test Item Value Reference Range Interpretation Comments HEMOGLOBIN A1c (test code = 33447) 6.9 % LIPID [id number] 00:00:00 Test Item Value Reference Range Interpretation Comments CHOLESTEROL (test code = 2210) 309 MG/DL TRIGLYCERIDES (test code = 2232) 587 MG/DL HDL CHOLESTEROL (test code = 48 MG/DL 2220) CALC LDL CHOL (test code = 2237) (NOTE) MG/DL RISK RATIO LDL/HDL (test code = (NOTE) RATIO 2238) LIPID [id number] 00:00:00 Test Item Value Reference Range Interpretation [...] THYROX. BIND. CAPAC. (test 1.5 code = 34873) T4 (THYROXINE) (test code = <1.2 UG/DL 2819) CORRECTED T4 (FTI) (test code (NOTE) UG/DL = 2820) TSH, THIRD GENERATION (test >100.000 UIU/ML code = 2821) THYROID II PROFILE (TU,T4,FTI,TSH) [ADDED]2019-10-26 00:00:00 Test Item Value Reference Range Interpretation Comments T-UPTAKE (test code = 2817) 18.4 % THYROX. BIND. CAPAC. (test 1.5 code = 43242) T4 (THYROXINE) (test code = <1.2 UG/DL 2819) CORRECTED T4 (FTI) (test code (NOTE) UG/DL = 2820) TSH, THIRD GENERATION (test >100.000 UIU/ML code = 2821) HEMOGLOBIN [id number] 00:00:00 Test Item Value Reference Range Interpretation Comments HEMOGLOBIN A1c (test code = 56079) 6.9 % HEMOGLOBIN [id number] 00:00:00 Test Item Value Reference Range Interpretation Comments HEMOGLOBIN A1c (test code = 97987) 6.9 % HEMOGLOBIN [id number] 00:00:00 Test Item Value Reference Range Interpretation Comments HEMOGLOBIN A1c (test code = 22749) 6.9 % LIPID [id number] 00:00:00 Test Item Value Reference Range Interpretation Comments CHOLESTEROL (test code = 2210) 309 MG/DL TRIGLYCERIDES (test code = 2232) 587 MG/DL HDL CHOLESTEROL (test code = 48 MG/DL 2220) CALC LDL CHOL (test code = 2237) (NOTE) MG/DL RISK RATIO LDL/HDL (test code = (NOTE) RATIO 2238) LIPID [id number] 00:00:00 Test Item Value Reference Range Interpretation [...] THYROX. BIND. CAPAC. (test 1.5 code = 51685) T4 (THYROXINE) (test code = <1.2 UG/DL 2819) CORRECTED T4 (FTI) (test code (NOTE) UG/DL = 2820) TSH, THIRD GENERATION (test >100.000 UIU/ML code = 2821) THYROID II PROFILE (TU,T4,FTI,TSH) [ADDED]2019-10-26 00:00:00 Test Item Value Reference Range Interpretation Comments T-UPTAKE (test code = 2817) 18.4 % THYROX. BIND. CAPAC. (test 1.5 code = 07892) T4 (THYROXINE) (test code = <1.2 UG/DL 2819) CORRECTED T4 (FTI) (test code (NOTE) UG/DL = 2820) TSH, THIRD GENERATION (test >100.000 UIU/ML code = 2821) HEMOGLOBIN [id number] 00:00:00 Test Item Value Reference Range Interpretation Comments HEMOGLOBIN A1c (test code = 31186) 6.9 % HEMOGLOBIN [id number] 00:00:00 Test Item Value Reference Range Interpretation Comments HEMOGLOBIN A1c (test code = 67188) 6.9 % HEMOGLOBIN [id number] 00:00:00 Test Item Value Reference Range Interpretation Comments HEMOGLOBIN A1c (test code = 13439) 6.9 % LIPID [id number] 00:00:00 Test Item Value Reference Range Interpretation Comments CHOLESTEROL (test code = 2210) 309 MG/DL TRIGLYCERIDES (test code = 2232) 587 MG/DL HDL CHOLESTEROL (test code = 48 MG/DL 2220) CALC LDL CHOL (test code = 2237) (NOTE) MG/DL RISK RATIO LDL/HDL (test code = (NOTE) RATIO 2238) LIPID [id number] 00:00:00 Test Item Value Reference Range Interpretation [...] THYROX. BIND. CAPAC. (test 1.5 code = 16716) T4 (THYROXINE) (test code = <1.2 UG/DL 2819) CORRECTED T4 (FTI) (test code (NOTE) UG/DL = 2820) TSH, THIRD GENERATION (test >100.000 UIU/ML code = 2821) THYROID II PROFILE (TU,T4,FTI,TSH) [ADDED]2019-10-26 00:00:00 Test Item Value Reference Range Interpretation Comments T-UPTAKE (test code = 2817) 18.4 % THYROX. BIND. CAPAC. (test 1.5 code = 46596) T4 (THYROXINE) (test code = <1.2 UG/DL 2819) CORRECTED T4 (FTI) (test code (NOTE) UG/DL = 2820) TSH, THIRD GENERATION (test >100.000 UIU/ML code = 2821) HEMOGLOBIN [id number] 09:52:00 Test Item Value Reference Range Interpretation Comments HEMOGLOBIN A1C (BEAKER) (test code = 6.6 % 4.3-6.1 H 368) Unit Manager Rn ID - [id number] 09:08:00 Test Item Value Reference Range Interpretation Comments PROSTATE SPECIFIC ANTIGEN (BEAKER) 0.5 ng/mL 0.0-4.0 (test code = 844) Unit Manager Rn ID - PITER FLIPID [id number] 08:00:00 Test Item Value Reference Range Interpretation [...] Borderline 130-159 High 160-189 Very High >=190 Unit Manager Rn ID - CHUCHO CTHYROID II PROFILE (T3U, T4, T7, TSH)2019-07-05 00:00:00 Test Item Value Reference Range Interpretation Comments T-UPTAKE (test code = 2817) 24.3 % THYROX. BIND. CAPAC. (test 1.3 code = 69425) T4 (THYROXINE) (test code = 3.6 UG/DL 2819) CORRECTED T4 (FTI) (test code 2.8 UG/DL = 2820) TSH, THIRD GENERATION (test >100.000 UIU/ML code = 2821) THYROID II PROFILE (T3U, T4, T7, TSH)2019-07-05 00:00:00 Test Item Value Reference Range Interpretation Comments T-UPTAKE (test code = 2817) 24.3 % THYROX. BIND. CAPAC. (test 1.3 code = 56492) T4 (THYROXINE) (test code = 3.6 UG/DL 2819) CORRECTED T4 (FTI) (test code 2.8 UG/DL = 2820) TSH, THIRD GENERATION (test >100.000 UIU/ML code = 2821) THYROID II PROFILE (T3U, T4, T7, TSH)2019-07-05 00:00:00 Test Item Value Reference Range Interpretation Comments T-UPTAKE (test code = 2817) 24.3 % THYROX. BIND. CAPAC. (test 1.3 code = 16452) T4 (THYROXINE) (test code = 3.6 UG/DL 2819) CORRECTED T4 (FTI) (test code 2.8 UG/DL = 2820) TSH, THIRD GENERATION (test >100.000 UIU/ML code = 2821) THYROID II PROFILE (T3U, T4, T7, TSH)2019-07-05 00:00:00 Test Item Value Reference Range Interpretation Comments T-UPTAKE (test code = 2817) 24.3 % THYROX. BIND. CAPAC. (test 1.3 code = 87295) T4 (THYROXINE) (test code = 3.6 UG/DL 2819) CORRECTED T4 (FTI) (test code 2.8 UG/DL = 2820) TSH, THIRD GENERATION (test >100.000 UIU/ML code = 2821) THYROID II PROFILE (T3U, T4, T7, TSH)2019-07-05 00:00:00 Test Item Value Reference Range Interpretation Comments T-UPTAKE (test code = 2817) 24.3 % THYROX. BIND. CAPAC. (test 1.3 code = 00986) T4 (THYROXINE) (test code = 3.6 UG/DL 2819) CORRECTED T4 (FTI) (test code 2.8 UG/DL = 2820) TSH, THIRD GENERATION (test >100.000 UIU/ML code = 2821) THYROID II PROFILE (T3U, T4, T7, TSH)2019-07-05 00:00:00 Test Item Value Reference Range Interpretation Comments T-UPTAKE (test code = 2817) 24.3 % THYROX. BIND. CAPAC. (test 1.3 code = 97322) T4 (THYROXINE) (test code = 3.6 UG/DL 2819) CORRECTED T4 (FTI) (test code 2.8 UG/DL = 2820) TSH, THIRD GENERATION (test >100.000 UIU/ML code = 2821) THYROID II PROFILE (T3U, T4, T7, TSH)2019-07-05 00:00:00 Test Item Value Reference Range Interpretation Comments T-UPTAKE (test code = 2817) 24.3 % THYROX. BIND. CAPAC. (test 1.3 code = 47119) T4 (THYROXINE) (test code = 3.6 UG/DL 2819) CORRECTED T4 (FTI) (test code 2.8 UG/DL = 2820) TSH, THIRD GENERATION (test >100.000 UIU/ML code = 2821) THYROID II PROFILE (T3U, T4, T7, TSH)2019-07-05 00:00:00 Test Item Value Reference Range Interpretation Comments T-UPTAKE (test code = 2817) 24.3 % THYROX. BIND. CAPAC. (test 1.3 code = 40182) T4 (THYROXINE) (test code = 3.6 UG/DL 2819) CORRECTED T4 (FTI) (test code 2.8 UG/DL = 2820) TSH, THIRD GENERATION (test >100.000 UIU/ML code = 2821) THYROID II PROFILE (T3U, T4, T7, TSH)2019-07-05 00:00:00 Test Item Value Reference Range Interpretation Comments T-UPTAKE (test code = 2817) 24.3 % THYROX. BIND. CAPAC. (test 1.3 code = 53230) T4 (THYROXINE) (test code = 3.6 UG/DL 2819) CORRECTED T4 (FTI) (test code 2.8 UG/DL = 2820) TSH, THIRD GENERATION (test >100.000 UIU/ML code = 2821) THYROID II PROFILE (T3U, T4, T7, TSH)2019-07-05 00:00:00 Test Item Value Reference Range Interpretation Comments T-UPTAKE (test code = 2817) 24.3 % THYROX. BIND. CAPAC. (test 1.3 code = 59606) T4 (THYROXINE) (test code = 3.6 UG/DL 2819) CORRECTED T4 (FTI) (test code 2.8 UG/DL = 2820) TSH, THIRD GENERATION (test >100.000 UIU/ML code = 2821) THYROID II PROFILE (T3U, T4, T7, TSH)2019-07-05 00:00:00 Test Item Value Reference Range Interpretation Comments T-UPTAKE (test code = 2817) 24.3 % THYROX. BIND. CAPAC. (test 1.3 code = 77356) T4 (THYROXINE) (test code = 3.6 UG/DL 2819) CORRECTED T4 (FTI) (test code 2.8 UG/DL = 2820) TSH, THIRD GENERATION (test >100.000 UIU/ML code = 2821) THYROID II PROFILE (T3U, T4, T7, TSH)2019-07-05 00:00:00 Test Item Value Reference Range Interpretation Comments T-UPTAKE (test code = 2817) 24.3 % THYROX. BIND. CAPAC. (test 1.3 code = 22825) T4 (THYROXINE) (test code = 3.6 UG/DL 2819) CORRECTED T4 (FTI) (test code 2.8 UG/DL = 2820) TSH, THIRD GENERATION (test >100.000 UIU/ML code = 2821) THYROID II PROFILE (T3U, T4, T7, TSH)2019-07-05 00:00:00 Test Item Value Reference Range Interpretation Comments T-UPTAKE (test code = 2817) 24.3 % THYROX. BIND. CAPAC. (test 1.3 code = 71057) T4 (THYROXINE) (test code = 3.6 UG/DL 2819) CORRECTED T4 (FTI) (test code 2.8 UG/DL = 2820) TSH, THIRD GENERATION (test >100.000 UIU/ML code = 2821) THYROID II PROFILE (T3U, T4, T7, TSH)2019-07-05 00:00:00 Test Item Value Reference Range Interpretation Comments T-UPTAKE (test code = 2817) 24.3 % THYROX. BIND. CAPAC. (test 1.3 code = 83230) T4 (THYROXINE) (test code = 3.6 UG/DL 2819) CORRECTED T4 (FTI) (test code 2.8 UG/DL = 2820) TSH, THIRD GENERATION (test >100.000 UIU/ML code = 2821) THYROID II PROFILE (T3U, T4, T7, TSH)2019-07-05 00:00:00 Test Item Value Reference Range Interpretation Comments T-UPTAKE (test code = 2817) 24.3 % THYROX. BIND. CAPAC. (test 1.3 code = 34068) T4 (THYROXINE) (test code = 3.6 UG/DL 2819) CORRECTED T4 (FTI) (test code 2.8 UG/DL = 2820) TSH, THIRD GENERATION (test >100.000 UIU/ML code = 2821) URINE [id number] 14:35:00 Test Item Value Reference Range Interpretation Comments CULTURE (BEAKER) ENTEROCOCCUS A 10-19,000 c ol/mL (test code = 1095) FAECALIS Enterococ cus faecalis Ampicillin (test S code = 26) Levofloxacin (test S code = 22) Linezolid (test code S = 40) Nitrofurantoin (test S code = 23) Tetracycline (test R code = 2) Vancomycin (test S code = 13) 10-19,000 col/mL skin [id number] 10:31:00 Test Item Value Reference Range Interpretation Comments RPR SCREEN (BEAKER) (test code = Nonreactive Nonreactive 420) U/S, ABDOMINAL, [id number] 16:14:00Reason for Exam:->Kidney transplant evaluation; comment on [...] Two simple right renal cysts. Signed: Tamika Phippsort Verified Date/Time: 05/23/2019 16:14:42 Reading Location: [address] Radiology Reading Room RAD, CHEST, 2 [id number] 16:02:00 Reason for Exam:->Pre kidney transplant evaluation.FINAL [...] MDReport Verified Date/Time: 05/23/2019 16:02:27 Reading Location: [address] Radiology Reading Room CYTOMEGALOVIRUS ANTIBODY, [id number] 15:17:00 Test Item Value Reference Range Interpretation Comments CYTOMEGALOVIRUS, IGG (BEAKER) Positive Negative, Equivocal A (test code = 3429) CMV IgG Result Interpretation: </= 0.8 Al Negative 0.9-1.0 Al Equivocal >/=1.1 Al PositiveCYTOMEGALOVIRUS ANTIBODY, [id number] 15:17:00 Test Item Value Reference Range Interpretation Comments CYTOMEGALOVIRUS IGM ANTIBODY Negative Negative, Equivocal ([employer]) (test code = 3437) CMV IgM Result Interpretation: </= 0.8 Al Negative 0.9-1.0 Al Equivocal >/= 1.1 Al PositiveEBV ANTIBODY, [id number] 15:17:00 Test Item Value Reference Range Interpretation Comments NIHARIKA HOOPER VIRAL CAPSID Positive Negative, Equivocal A ANTIGEN IGG ([employer]) (test code = 3415) Niharika Hooper Viral Capsid Antigen IgG Result Interpretation: </= 0.8 Al Negative 0.9-1.0 Al Equivocal >/= 1.1 Al PositiveEBV ANTIBODY, [id number] 15:17:00 Test Item Value Reference Range Interpretation Comments NIHARIKA HOOPER VIRAL CAPSID Negative Negative, Equivocal ANTIGEN IGM ([employer]) (test code = 3418) Niharika Hooper Viral Capsid Antigen IgM Result Interpretation: </= 0.8 Al Negative 0.9-1.0 Al Equivocal >/= 1.1 Al PositiveVARICELLA ZOSTER ANTIBODY, [id number] 15:17:00 Test Item Value Reference Range Interpretation Comments VARICELLA ZOSTER IGG (AL) ([employer]) 3.4 (test code = 3197) VARICELLA ZOSTER RESULT INTERPRETATIONS: <=0.8 Al Nonreactive: Presumed non- immune to VZV 0.9-1.0Al Equivocal >=1.1 Al Reactive: Presumed immune to VZV HEPATITIS B SURFACE [id number] 12:59:00 Test Item Value Reference Range Interpretation Comments HEPATITIS B SURFACE ANTIBODY 11899.3 mIU/mL <8.0 H ([employer]) (test code = 647) Unit Manager Rn ID - ROSIANGHEPATITIS B SURFACE [id number] 12:47:00 Test Item Value Reference Range Interpretation Comments HEPATITIS B SURFACE ANTIGEN (2) Nonreactive Nonreactive ([employer]) (test code = 2585) Unit Manager Rn ID - ROSIANGHEPATITIS B CORE ANTIBODY, [id number] 12:47:00 Test Item Value Reference Range Interpretation Comments HEPATITIS B CORE IGM ANTIBODY Nonreactive Nonreactive (BEAKER) (test code = 645) Unit Manager Rn ID - TIKAEPATITIS C [id number] 12:47:00 Test Item Value Reference Range Interpretation Comments HEPATITIS C ANTIBODY (BEAKER) Nonreactive Nonreactive (test code = 367) Unit Manager Rn ID - TIKAIV-1 ANTIGEN WITH HIV-1/2 [id number] 12:47:00 Test Item Value Reference Range Interpretation Comments HIV-1 ANTIGEN WITH HIV 1\T\2 Nonreactive Nonreactive ANTIBODY (2) (BEAKER) (test code = 2586) Unit Manager Rn ID - NANCYGPTH, [id number] 12:03:00 Test Item Value Reference Range Interpretation Comments PARATHYROID HORMONE INTACT 430.9 pg/mL 8.5-72.5 H (BEAKER) (test code = 577) Unit Manager Rn ID - LACOMPREHENSIVE METABOLIC [id number] 11:56:00 Test Item Value Reference Range Interpretation [...] S NOT APPLICABLE FOR DIALYSIS PATIEN TS. Unit Manager Rn ID - LAURIC [id number] 11:55:00 Test Item Value Reference Range Interpretation Comments URIC ACID (BEAKER) (test code = 5.5 mg/dL 2.6-7.2 773) Unit Manager Rn ID - [id number] 11:55:00 Test Item Value Reference Range Interpretation Comments PHOSPHORUS (BEAKER) (test code = 5.5 mg/dL 2.3-4.7 H 604) Unit Manager Rn ID - LAGAMMA GLUTAMYL TRANSFERASE (GGT)2019-05-23 11:55:00 Test Item Value Reference Range Interpretation Comments GAMMA GLUTAMYL TRANSFERASE (BEAKER) 20 U/L 9-64 (test code = 364) Unit Manager Rn ID - LALACTATE DEHYDROGENASE (LDH)2019-05-23 11:55:00 Test Item Value Reference Range Interpretation Comments LACTATE DEHYDROGENASE (BEAKER) (test 249 U/L 125-220 H code = 635) Unit Manager Rn ID - LAURINALYSIS W/ [id number] 11:43:00 Test Item Value Reference Range Interpretation [...] < /HPF SOURCE(BEAKER) (test code = 2795) Unit Manager Rn ID - [auto]Unit Manager Rn ID - techPT/[id number] 11:32:00 Test Item Value Reference Range Interpretation [...] 2.5-3.5 for patients wiht mechanical heart valves.PROTHROMBIN TIME/[id number] 11:31:00 Test Item Value Reference Range Interpretation [...] mechanical heart valves.CBC W/PLT COUNT & AUTO [id number] 11:27:00 Test Item Value Reference Range Interpretation [...] 0-1 PERCENT (BEAKER) (test code = 2801) [id number] 00:00:00 Test Item Value Reference Range Interpretation Comments TSH, THIRD GENERATION (test >100.000 UIU/ML code = 2821) [id number] 00:00:00 Test Item Value Reference Range Interpretation Comments TSH, THIRD GENERATION (test >100.000 UIU/ML code = 2821) [id number] 00:00:00 Test Item Value Reference Range Interpretation Comments TSH, THIRD GENERATION (test >100.000 UIU/ML code = 2821) [id number] 00:00:00 Test Item Value Reference Range Interpretation Comments TSH, THIRD GENERATION (test >100.000 UIU/ML code = 2821) [id number] 00:00:00 Test Item Value Reference Range Interpretation Comments TSH, THIRD GENERATION (test >100.000 UIU/ML code = 2821) [id number] 00:00:00 Test Item Value Reference Range Interpretation Comments TSH, THIRD GENERATION (test >100.000 UIU/ML code = 2821) [id number] 00:00:00 Test Item Value Reference Range Interpretation Comments TSH, THIRD GENERATION (test >100.000 UIU/ML code = 2821) [id number] 00:00:00 Test Item Value Reference Range Interpretation Comments TSH, THIRD GENERATION (test >100.000 UIU/ML code = 2821) [id number] 00:00:00 Test Item Value Reference Range Interpretation Comments TSH, THIRD GENERATION (test >100.000 UIU/ML code = 2821) [id number] 00:00:00 Test Item Value Reference Range Interpretation Comments TSH, THIRD GENERATION (test >100.000 UIU/ML code = 2821) [id number] 00:00:00 Test Item Value Reference Range Interpretation Comments TSH, THIRD GENERATION (test >100.000 UIU/ML code = 2821) [id number] 00:00:00 Test Item Value Reference Range Interpretation Comments TSH, THIRD GENERATION (test >100.000 UIU/ML code = 2821) [id number] 00:00:00 Test Item Value Reference Range Interpretation Comments TSH, THIRD GENERATION (test >100.000 UIU/ML code = 2821) [id number] 00:00:00 Test Item Value Reference Range Interpretation Comments TSH, THIRD GENERATION (test >100.000 UIU/ML code = 2821) [id number] 00:00:00 Test Item Value Reference Range Interpretation Comments TSH, THIRD GENERATION (test >100.000 UIU/ML code = 2821) [id number] 00:00:00 Test Item Value Reference Range Interpretation Comments TSH, THIRD GENERATION (test >100.000 UIU/ML code = 2821) [id number] 00:00:00 Test Item Value Reference Range Interpretation Comments TSH, THIRD GENERATION (test >100.000 UIU/ML code = 2821) [id number] 00:00:00 Test Item Value Reference Range Interpretation Comments TSH, THIRD GENERATION (test >100.000 UIU/ML code = 2821) [id number] 00:00:00 Test Item Value Reference Range Interpretation Comments TSH, THIRD GENERATION (test >100.000 UIU/ML code = 2821) [id number] 00:00:00 Test Item Value Reference Range Interpretation Comments TSH, THIRD GENERATION (test >100.000 UIU/ML code = 2821) [id number] 00:00:00 Test Item Value Reference Range Interpretation Comments TSH, THIRD GENERATION (test >100.000 UIU/ML code = 2821) [id number] 00:00:00 Test Item Value Reference Range Interpretation Comments TSH, THIRD GENERATION (test >100.000 UIU/ML code = 2821) [id number] 00:00:00 Test Item Value Reference Range Interpretation Comments TSH, THIRD GENERATION (test >100.000 UIU/ML code = 2821) LIPID [id number] 00:00:00 Test Item Value Reference Range Interpretation Comments CHOLESTEROL (test code = 2210) 201 MG/DL TRIGLYCERIDES (test code = 2232) 227 MG/DL HDL CHOLESTEROL (test code = 2220) 52 MG/DL CALC LDL CHOL (test code = 2237) 104 MG/DL RISK RATIO LDL/HDL (test code = 1.99 RATIO 2238) LIPID [id number] 00:00:00 Test Item Value Reference Range Interpretation Comments CHOLESTEROL (test code = 2210) 201 MG/DL TRIGLYCERIDES (test code = 2232) 227 MG/DL HDL CHOLESTEROL (test code = 2220) 52 MG/DL CALC LDL CHOL (test code = 2237) 104 MG/DL RISK RATIO LDL/HDL (test code = 1.99 RATIO 2238) [id number] 00:00:00 Test Item Value Reference Range Interpretation Comments TSH, THIRD GENERATION (test >100.000 UIU/ML code = 2821) [id number] 00:00:00 Test Item Value Reference Range Interpretation Comments TSH, THIRD GENERATION (test >100.000 UIU/ML code = 2821) [id number] 00:00:00 Test Item Value Reference Range Interpretation Comments TSH, THIRD GENERATION (test >100.000 UIU/ML code = 2821) LIPID [id number] 00:00:00 Test Item Value Reference Range Interpretation Comments CHOLESTEROL (test code = 2210) 201 MG/DL TRIGLYCERIDES (test code = 2232) 227 MG/DL HDL CHOLESTEROL (test code = 2220) 52 MG/DL CALC LDL CHOL (test code = 2237) 104 MG/DL RISK RATIO LDL/HDL (test code = 1.99 RATIO 2238) LIPID [id number] 00:00:00 Test Item Value Reference Range Interpretation Comments CHOLESTEROL (test code = 2210) 201 MG/DL TRIGLYCERIDES (test code = 2232) 227 MG/DL HDL CHOLESTEROL (test code = 2220) 52 MG/DL CALC LDL CHOL (test code = 2237) 104 MG/DL RISK RATIO LDL/HDL (test code = 1.99 RATIO 2238) [id number] 00:00:00 Test Item Value Reference Range Interpretation Comments TSH, THIRD GENERATION (test >100.000 UIU/ML code = 2821) [id number] 00:00:00 Test Item Value Reference Range Interpretation Comments TSH, THIRD GENERATION (test >100.000 UIU/ML code = 2821) [id number] 00:00:00 Test Item Value Reference Range Interpretation Comments TSH, THIRD GENERATION (test >100.000 UIU/ML code = 2821) LIPID [id number] 00:00:00 Test Item Value Reference Range Interpretation Comments CHOLESTEROL (test code = 2210) 201 MG/DL TRIGLYCERIDES (test code = 2232) 227 MG/DL HDL CHOLESTEROL (test code = 2220) 52 MG/DL CALC LDL CHOL (test code = 2237) 104 MG/DL RISK RATIO LDL/HDL (test code = 1.99 RATIO 2238) LIPID [id number] 00:00:00 Test Item Value Reference Range Interpretation Comments CHOLESTEROL (test code = 2210) 201 MG/DL TRIGLYCERIDES (test code = 2232) 227 MG/DL HDL CHOLESTEROL (test code = 2220) 52 MG/DL CALC LDL CHOL (test code = 2237) 104 MG/DL RISK RATIO LDL/HDL (test code = 1.99 RATIO 2238) LIPID [id number] 00:00:00 Test Item Value Reference Range Interpretation Comments CHOLESTEROL (test code = 2210) 201 MG/DL TRIGLYCERIDES (test code = 2232) 227 MG/DL HDL CHOLESTEROL (test code = 2220) 52 MG/DL CALC LDL CHOL (test code = 2237) 104 MG/DL RISK RATIO LDL/HDL (test code = 1.99 RATIO 2238) [id number] 00:00:00 Test Item Value Reference Range Interpretation Comments TSH, THIRD GENERATION (test >100.000 UIU/ML code = 2821) [id number] 00:00:00 Test Item Value Reference Range Interpretation Comments TSH, THIRD GENERATION (test >100.000 UIU/ML code = 2821) [id number] 00:00:00 Test Item Value Reference Range Interpretation Comments TSH, THIRD GENERATION (test >100.000 UIU/ML code = 2821) [id number] 00:00:00 Test Item Value Reference Range Interpretation Comments TSH, THIRD GENERATION (test >100.000 UIU/ML code = 2821) [id number] 00:00:00 Test Item Value Reference Range Interpretation Comments TSH, THIRD GENERATION (test >100.000 UIU/ML code = 2821) LIPID [id number] 00:00:00 Test Item Value Reference Range Interpretation Comments CHOLESTEROL (test code = 2210) 201 MG/DL TRIGLYCERIDES (test code = 2232) 227 MG/DL HDL CHOLESTEROL (test code = 2220) 52 MG/DL CALC LDL CHOL (test code = 2237) 104 MG/DL RISK RATIO LDL/HDL (test code = 1.99 RATIO 2238) LIPID [id number] 00:00:00 Test Item Value Reference Range Interpretation Comments CHOLESTEROL (test code = 2210) 201 MG/DL TRIGLYCERIDES (test code = 2232) 227 MG/DL HDL CHOLESTEROL (test code = 2220) 52 MG/DL CALC LDL CHOL (test code = 2237) 104 MG/DL RISK RATIO LDL/HDL (test code = 1.99 RATIO 2238) [id number] 00:00:00 Test Item Value Reference Range Interpretation Comments TSH, THIRD GENERATION (test >100.000 UIU/ML code = 2821) [id number] 00:00:00 Test Item Value Reference Range Interpretation Comments TSH, THIRD GENERATION (test >100.000 UIU/ML code = 2821) [id number] 00:00:00 Test Item Value Reference Range Interpretation Comments TSH, THIRD GENERATION (test >100.000 UIU/ML code = 2821) LIPID [id number] 00:00:00 Test Item Value Reference Range Interpretation Comments CHOLESTEROL (test code = 2210) 201 MG/DL TRIGLYCERIDES (test code = 2232) 227 MG/DL HDL CHOLESTEROL (test code = 2220) 52 MG/DL CALC LDL CHOL (test code = 2237) 104 MG/DL RISK RATIO LDL/HDL (test code = 1.99 RATIO 2238) LIPID [id number] 00:00:00 Test Item Value Reference Range Interpretation Comments CHOLESTEROL (test code = 2210) 201 MG/DL TRIGLYCERIDES (test code = 2232) 227 MG/DL HDL CHOLESTEROL (test code = 2220) 52 MG/DL CALC LDL CHOL (test code = 2237) 104 MG/DL RISK RATIO LDL/HDL (test code = 1.99 RATIO 2238) [id number] 00:00:00 Test Item Value Reference Range Interpretation Comments TSH, THIRD GENERATION (test >100.000 UIU/ML code = 2821) [id number] 00:00:00 Test Item Value Reference Range Interpretation Comments TSH, THIRD GENERATION (test >100.000 UIU/ML code = 2821) [id number] 00:00:00 Test Item Value Reference Range Interpretation Comments TSH, THIRD GENERATION (test >100.000 UIU/ML code = 2821) LIPID [id number] 00:00:00 Test Item Value Reference Range Interpretation Comments CHOLESTEROL (test code = 2210) 201 MG/DL TRIGLYCERIDES (test code = 2232) 227 MG/DL HDL CHOLESTEROL (test code = 2220) 52 MG/DL CALC LDL CHOL (test code = 2237) 104 MG/DL RISK RATIO LDL/HDL (test code = 1.99 RATIO 2238) LIPID [id number] 00:00:00 Test Item Value Reference Range Interpretation Comments CHOLESTEROL (test code = 2210) 201 MG/DL TRIGLYCERIDES (test code = 2232) 227 MG/DL HDL CHOLESTEROL (test code = 2220) 52 MG/DL CALC LDL CHOL (test code = 2237) 104 MG/DL RISK RATIO LDL/HDL (test code = 1.99 RATIO 2238) [id number] 00:00:00 Test Item Value Reference Range Interpretation Comments TSH, THIRD GENERATION (test >100.000 UIU/ML code = 2821) [id number] 00:00:00 Test Item Value Reference Range Interpretation Comments TSH, THIRD GENERATION (test >100.000 UIU/ML code = 2821) [id number] 00:00:00 Test Item Value Reference Range Interpretation Comments TSH, THIRD GENERATION (test >100.000 UIU/ML code = 2821) LIPID [id number] 00:00:00 Test Item Value Reference Range Interpretation Comments CHOLESTEROL (test code = 2210) 201 MG/DL TRIGLYCERIDES (test code = 2232) 227 MG/DL HDL CHOLESTEROL (test code = 2220) 52 MG/DL CALC LDL CHOL (test code = 2237) 104 MG/DL RISK RATIO LDL/HDL (test code = 1.99 RATIO 2238) LIPID [id number] 00:00:00 Test Item Value Reference Range Interpretation Comments CHOLESTEROL (test code = 2210) 201 MG/DL TRIGLYCERIDES (test code = 2232) 227 MG/DL HDL CHOLESTEROL (test code = 2220) 52 MG/DL CALC LDL CHOL (test code = 2237) 104 MG/DL RISK RATIO LDL/HDL (test code = 1.99 RATIO 2238) [id number] 00:00:00 Test Item Value Reference Range Interpretation Comments TSH, THIRD GENERATION (test >100.000 UIU/ML code = 2821) [id number] 00:00:00 Test Item Value Reference Range Interpretation Comments TSH, THIRD GENERATION (test >100.000 UIU/ML code = 2821) [id number] 00:00:00 Test Item Value Reference Range Interpretation Comments TSH, THIRD GENERATION (test >100.000 UIU/ML code = 2821) COMPREHENSIVE METABOLIC [id number] 00:00:00 Test Item Value Reference Range Interpretation Comments GLUCOSE (test code = 2217) 103 MG/DL BUN (test code = 2208) 35 MG/DL CREATININE (test code = 2214) 6.37 MG/DL eGFR AMER. (test code 11 ML/MIN/1.73 = 26623) eGFR NON- AMER. (test 9 ML/MIN/1.73 code = 58828) CALC BUN/CREAT (test code = 5 RATIO 2235) SODIUM (test code = 2231) 141 MEQ/L POTASSIUM (test code = 2228) 3.8 MEQ/L CHLORIDE (test code = 2215) 96 MEQ/L CARBON DIOXIDE (test code = 27 MEQ/L 220) CALCIUM (test code = 2209) 11.0 MG/DL [...] code = 2219) 10 U/L COMPREHENSIVE METABOLIC [id number] 00:00:00 Test Item Value Reference Range Interpretation Comments GLUCOSE (test code = 2217) 103 MG/DL BUN (test code = 2208) 35 MG/DL CREATININE (test code = 2214) 6.37 MG/DL eGFR AMER. (test code 11 ML/MIN/1.73 = 31341) eGFR NON- AMER. (test 9 ML/MIN/1.73 code = 01394) CALC BUN/CREAT (test code = 5 RATIO 2235) SODIUM (test code = 2231) 141 MEQ/L POTASSIUM (test code = 2228) 3.8 MEQ/L CHLORIDE (test code = 2215) 96 MEQ/L CARBON DIOXIDE (test code = 27 MEQ/L 220) CALCIUM (test code = 2209) 11.0 MG/DL [...] (test code = 2219) 10 U/L LIPID [id number] 00:00:00 Test Item Value Reference Range Interpretation Comments CHOLESTEROL (test code = 2210) 240 MG/DL TRIGLYCERIDES (test code = 2232) 395 MG/DL HDL CHOLESTEROL (test code = 2220) 55 MG/DL CALC LDL CHOL (test code = 2237) 106 MG/DL RISK RATIO LDL/HDL (test code = 1.93 RATIO 2238) LIPID [id number] 00:00:00 Test Item Value Reference Range Interpretation Comments CHOLESTEROL (test code = 2210) 240 MG/DL TRIGLYCERIDES (test code = 2232) 395 MG/DL HDL CHOLESTEROL (test code = 2220) 55 MG/DL CALC LDL CHOL (test code = 2237) 106 MG/DL RISK RATIO LDL/HDL (test code = 1.93 RATIO 2238) CBC W/AUTO [id number] 00:00:00 Test Item Value Reference Range Interpretation [...] code = 1015) 327 K/UL CBC W/AUTO [id number] 00:00:00 Test Item Value Reference Range Interpretation [...] code = 1015) 327 K/UL CBC W/AUTO [id number] 00:00:00 Test Item Value Reference Range Interpretation [...] (test code = 1015) 327 K/UL HEMOGLOBIN [id number] 00:00:00 Test Item Value Reference Range Interpretation Comments HEMOGLOBIN A1c (test code = 96584) 6.2 % HEMOGLOBIN [id number] 00:00:00 Test Item Value Reference Range Interpretation Comments HEMOGLOBIN A1c (test code = 90379) 6.2 % HEMOGLOBIN [id number] 00:00:00 Test Item Value Reference Range Interpretation Comments HEMOGLOBIN A1c (test code = 65682) 6.2 % [id number] 00:00:00 Test Item Value Reference Range Interpretation Comments TSH, THIRD GENERATION (test >100.000 UIU/ML code = 2821) [id number] 00:00:00 Test Item Value Reference Range Interpretation Comments TSH, THIRD GENERATION (test >100.000 UIU/ML code = 2821) [id number] 00:00:00 Test Item Value Reference Range Interpretation Comments TSH, THIRD GENERATION (test >100.000 UIU/ML code = 2821) COMPREHENSIVE METABOLIC [id number] 00:00:00 Test Item Value Reference Range Interpretation Comments GLUCOSE (test code = 2217) 103 MG/DL BUN (test code = 2208) 35 MG/DL CREATININE (test code = 2214) 6.37 MG/DL eGFR AMER. (test code 11 ML/MIN/1.73 = 73764) eGFR NON- AMER. (test 9 ML/MIN/1.73 code = 44172) CALC BUN/CREAT (test code = 5 RATIO [...] code = 2219) 10 U/L COMPREHENSIVE METABOLIC [id number] 00:00:00 Test Item Value Reference Range Interpretation Comments GLUCOSE (test code = 2217) 103 MG/DL BUN (test code = 2208) 35 MG/DL CREATININE (test code = 2214) 6.37 MG/DL eGFR AMER. (test code 11 ML/MIN/1.73 = 60241) eGFR NON- AMER. (test 9 ML/MIN/1.73 code = 86309) CALC BUN/CREAT (test code = 5 RATIO [...] (test code = 2219) 10 U/L LIPID [id number] 00:00:00 Test Item Value Reference Range Interpretation Comments CHOLESTEROL (test code = 2210) 240 MG/DL TRIGLYCERIDES (test code = 2232) 395 MG/DL HDL CHOLESTEROL (test code = 2220) 55 MG/DL CALC LDL CHOL (test code = 2237) 106 MG/DL RISK RATIO LDL/HDL (test code = 1.93 RATIO 2238) LIPID [id number] 00:00:00 Test Item Value Reference Range Interpretation Comments CHOLESTEROL (test code = 2210) 240 MG/DL TRIGLYCERIDES (test code = 2232) 395 MG/DL HDL CHOLESTEROL (test code = 2220) 55 MG/DL CALC LDL CHOL (test code = 2237) 106 MG/DL RISK RATIO LDL/HDL (test code = 1.93 RATIO 2238) CBC W/AUTO [id number] 00:00:00 Test Item Value Reference Range Interpretation [...] code = 1015) 327 K/UL CBC W/AUTO [id number] 00:00:00 Test Item Value Reference Range Interpretation [...] code = 1015) 327 K/UL CBC W/AUTO [id number] 00:00:00 Test Item Value Reference Range Interpretation [...] (test code = 1015) 327 K/UL HEMOGLOBIN [id number] 00:00:00 Test Item Value Reference Range Interpretation Comments HEMOGLOBIN A1c (test code = 49382) 6.2 % HEMOGLOBIN [id number] 00:00:00 Test Item Value Reference Range Interpretation Comments HEMOGLOBIN A1c (test code = 90305) 6.2 % HEMOGLOBIN [id number] 00:00:00 Test Item Value Reference Range Interpretation Comments HEMOGLOBIN A1c (test code = 26042) 6.2 % [id number] 00:00:00 Test Item Value Reference Range Interpretation Comments TSH, THIRD GENERATION (test >100.000 UIU/ML code = 2821) [id number] 00:00:00 Test Item Value Reference Range Interpretation Comments TSH, THIRD GENERATION (test >100.000 UIU/ML code = 2821) [id number] 00:00:00 Test Item Value Reference Range Interpretation Comments TSH, THIRD GENERATION (test >100.000 UIU/ML code = 2821) COMPREHENSIVE METABOLIC [id number] 00:00:00 Test Item Value Reference Range Interpretation Comments GLUCOSE (test code = 2217) 103 MG/DL BUN (test code = 2208) 35 MG/DL CREATININE (test code = 2214) 6.37 MG/DL eGFR AMER. (test code 11 ML/MIN/1.73 = 50375) eGFR NON- AMER. (test 9 ML/MIN/1.73 code = 82665) CALC BUN/CREAT (test code = 5 RATIO 2235) SODIUM (test code = 2231) 141 MEQ/L POTASSIUM (test code = 2228) 3.8 MEQ/L CHLORIDE (test code = 2215) 96 MEQ/L CARBON DIOXIDE (test code = 27 MEQ/L 6) CALCIUM (test code = 2209) 11.0 MG/DL [...] code = 2219) 10 U/L COMPREHENSIVE METABOLIC [id number] 00:00:00 Test Item Value Reference Range Interpretation Comments GLUCOSE (test code = 2217) 103 MG/DL BUN (test code = 2208) 35 MG/DL CREATININE (test code = 2214) 6.37 MG/DL eGFR AMER. (test code 11 ML/MIN/1.73 = 74046) eGFR NON- AMER. (test 9 ML/MIN/1.73 code = 38188) CALC BUN/CREAT (test code = 5 RATIO [...] (test code = 2219) 10 U/L LIPID [id number] 00:00:00 Test Item Value Reference Range Interpretation Comments CHOLESTEROL (test code = 2210) 240 MG/DL TRIGLYCERIDES (test code = 2232) 395 MG/DL HDL CHOLESTEROL (test code = 2220) 55 MG/DL CALC LDL CHOL (test code = 2237) 106 MG/DL RISK RATIO LDL/HDL (test code = 1.93 RATIO 2238) LIPID [id number] 00:00:00 Test Item Value Reference Range Interpretation Comments CHOLESTEROL (test code = 2210) 240 MG/DL TRIGLYCERIDES (test code = 2232) 395 MG/DL HDL CHOLESTEROL (test code = 2220) 55 MG/DL CALC LDL CHOL (test code = 2237) 106 MG/DL RISK RATIO LDL/HDL (test code = 1.93 RATIO 2238) COMPREHENSIVE METABOLIC [id number] 00:00:00 Test Item Value Reference Range Interpretation Comments GLUCOSE (test code = 2217) 103 MG/DL BUN (test code = 2208) 35 MG/DL CREATININE (test code = 2214) 6.37 MG/DL eGFR AMER. (test code 11 ML/MIN/1.73 = 29140) eGFR NON- AMER. (test 9 ML/MIN/1.73 code = 11705) CALC BUN/CREAT (test code = 5 RATIO [...] ALT (test code = 2219) 10 U/L CBC W/AUTO [id number] 00:00:00 Test Item Value Reference Range Interpretation [...] COUNT (test code = 1015) 327 K/UL LIPID [id number] 00:00:00 Test Item Value Reference Range Interpretation Comments CHOLESTEROL (test code = 2210) 240 MG/DL TRIGLYCERIDES (test code = 2232) 395 MG/DL HDL CHOLESTEROL (test code = 2220) 55 MG/DL CALC LDL CHOL (test code = 2237) 106 MG/DL RISK RATIO LDL/HDL (test code = 1.93 RATIO 2238) CBC W/AUTO [id number] 00:00:00 Test Item Value Reference Range Interpretation [...] code = 1015) 327 K/UL CBC W/AUTO [id number] 00:00:00 Test Item Value Reference Range Interpretation [...] (test code = 1015) 327 K/UL HEMOGLOBIN [id number] 00:00:00 Test Item Value Reference Range Interpretation Comments HEMOGLOBIN A1c (test code = 93092) 6.2 % HEMOGLOBIN [id number] 00:00:00 Test Item Value Reference Range Interpretation Comments HEMOGLOBIN A1c (test code = 02959) 6.2 % HEMOGLOBIN [id number] 00:00:00 Test Item Value Reference Range Interpretation Comments HEMOGLOBIN A1c (test code = 93126) 6.2 % [id number] 00:00:00 Test Item Value Reference Range Interpretation Comments TSH, THIRD GENERATION (test >100.000 UIU/ML code = 2821) [id number] 00:00:00 Test Item Value Reference Range Interpretation Comments TSH, THIRD GENERATION (test >100.000 UIU/ML code = 2821) [id number] 00:00:00 Test Item Value Reference Range Interpretation Comments TSH, THIRD GENERATION (test >100.000 UIU/ML code = 2821) CBC W/AUTO [id number] 00:00:00 Test Item Value Reference Range Interpretation [...] code = 1015) 327 K/UL CBC W/AUTO [id number] 00:00:00 Test Item Value Reference Range Interpretation [...] (test code = 1015) 327 K/UL HEMOGLOBIN [id number] 00:00:00 Test Item Value Reference Range Interpretation Comments HEMOGLOBIN A1c (test code = 66471) 6.2 % HEMOGLOBIN [id number] 00:00:00 Test Item Value Reference Range Interpretation Comments HEMOGLOBIN A1c (test code = 68413) 6.2 % COMPREHENSIVE METABOLIC [id number] 00:00:00 Test Item Value Reference Range Interpretation Comments GLUCOSE (test code = 2217) 103 MG/DL BUN (test code = 2208) 35 MG/DL CREATININE (test code = 2214) 6.37 MG/DL eGFR AMER. (test code 11 ML/MIN/1.73 = 74388) eGFR NON- AMER. (test 9 ML/MIN/1.73 code = 48095) CALC BUN/CREAT (test code = 5 RATIO [...] code = 2219) 10 U/L COMPREHENSIVE METABOLIC [id number] 00:00:00 Test Item Value Reference Range Interpretation Comments GLUCOSE (test code = 2217) 103 MG/DL BUN (test code = 2208) 35 MG/DL CREATININE (test code = 2214) 6.37 MG/DL eGFR AMER. (test code 11 ML/MIN/1.73 = 49247) eGFR NON- AMER. (test 9 ML/MIN/1.73 code = 96448) CALC BUN/CREAT (test code = 5 RATIO [...] ALT (test code = 2219) 10 U/L [id number] 00:00:00 Test Item Value Reference Range Interpretation Comments TSH, THIRD GENERATION (test >100.000 UIU/ML code = 2821) [id number] 00:00:00 Test Item Value Reference Range Interpretation Comments TSH, THIRD GENERATION (test >100.000 UIU/ML code = 2821) LIPID [id number] 00:00:00 Test Item Value Reference Range Interpretation Comments CHOLESTEROL (test code = 2210) 240 MG/DL TRIGLYCERIDES (test code = 2232) 395 MG/DL HDL CHOLESTEROL (test code = 2220) 55 MG/DL CALC LDL CHOL (test code = 2237) 106 MG/DL RISK RATIO LDL/HDL (test code = 1.93 RATIO 2238) LIPID [id number] 00:00:00 Test Item Value Reference Range Interpretation Comments CHOLESTEROL (test code = 2210) 240 MG/DL TRIGLYCERIDES (test code = 2232) 395 MG/DL HDL CHOLESTEROL (test code = 2220) 55 MG/DL CALC LDL CHOL (test code = 2237) 106 MG/DL RISK RATIO LDL/HDL (test code = 1.93 RATIO 2238) CBC W/AUTO [id number] 00:00:00 Test Item Value Reference Range Interpretation [...] code = 1015) 327 K/UL CBC W/AUTO [id number] 00:00:00 Test Item Value Reference Range Interpretation [...] code = 1015) 327 K/UL CBC W/AUTO [id number] 00:00:00 Test Item Value Reference Range Interpretation [...] (test code = 1015) 327 K/UL HEMOGLOBIN [id number] 00:00:00 Test Item Value Reference Range Interpretation Comments HEMOGLOBIN A1c (test code = 04824) 6.2 % HEMOGLOBIN [id number] 00:00:00 Test Item Value Reference Range Interpretation Comments HEMOGLOBIN A1c (test code = 72196) 6.2 % HEMOGLOBIN [id number] 00:00:00 Test Item Value Reference Range Interpretation Comments HEMOGLOBIN A1c (test code = 74411) 6.2 % [id number] 00:00:00 Test Item Value Reference Range Interpretation Comments TSH, THIRD GENERATION (test >100.000 UIU/ML code = 2821) [id number] 00:00:00 Test Item Value Reference Range Interpretation Comments TSH, THIRD GENERATION (test >100.000 UIU/ML code = 2821) [id number] 00:00:00 Test Item Value Reference Range Interpretation Comments TSH, THIRD GENERATION (test >100.000 UIU/ML code = 2821) COMPREHENSIVE METABOLIC [id number] 00:00:00 Test Item Value Reference Range Interpretation Comments GLUCOSE (test code = 2217) 103 MG/DL BUN (test code = 2208) 35 MG/DL CREATININE (test code = 2214) 6.37 MG/DL eGFR AMER. (test code 11 ML/MIN/1.73 = 56797) eGFR NON- AMER. (test 9 ML/MIN/1.73 code = 84658) CALC BUN/CREAT (test code = 5 RATIO [...] code = 2219) 10 U/L COMPREHENSIVE METABOLIC [id number] 00:00:00 Test Item Value Reference Range Interpretation Comments GLUCOSE (test code = 2217) 103 MG/DL BUN (test code = 2208) 35 MG/DL CREATININE (test code = 2214) 6.37 MG/DL eGFR AMER. (test code 11 ML/MIN/1.73 = 98684) eGFR NON- AMER. (test 9 ML/MIN/1.73 code = 58220) CALC BUN/CREAT (test code = 5 RATIO [...] (test code = 2219) 10 U/L LIPID [id number] 00:00:00 Test Item Value Reference Range Interpretation Comments CHOLESTEROL (test code = 2210) 240 MG/DL TRIGLYCERIDES (test code = 2232) 395 MG/DL HDL CHOLESTEROL (test code = 2220) 55 MG/DL CALC LDL CHOL (test code = 2237) 106 MG/DL RISK RATIO LDL/HDL (test code = 1.93 RATIO 2238) LIPID [id number] 00:00:00 Test Item Value Reference Range Interpretation Comments CHOLESTEROL (test code = 2210) 240 MG/DL TRIGLYCERIDES (test code = 2232) 395 MG/DL HDL CHOLESTEROL (test code = 2220) 55 MG/DL CALC LDL CHOL (test code = 2237) 106 MG/DL RISK RATIO LDL/HDL (test code = 1.93 RATIO 2238) CBC W/AUTO [id number] 00:00:00 Test Item Value Reference Range Interpretation [...] code = 1015) 327 K/UL CBC W/AUTO [id number] 00:00:00 Test Item Value Reference Range Interpretation [...] code = 1015) 327 K/UL CBC W/AUTO [id number] 00:00:00 Test Item Value Reference Range Interpretation [...] (test code = 1015) 327 K/UL HEMOGLOBIN [id number] 00:00:00 Test Item Value Reference Range Interpretation Comments HEMOGLOBIN A1c (test code = 97129) 6.2 % HEMOGLOBIN [id number] 00:00:00 Test Item Value Reference Range Interpretation Comments HEMOGLOBIN A1c (test code = 94286) 6.2 % HEMOGLOBIN [id number] 00:00:00 Test Item Value Reference Range Interpretation Comments HEMOGLOBIN A1c (test code = 98904) 6.2 % [id number] 00:00:00 Test Item Value Reference Range Interpretation Comments TSH, THIRD GENERATION (test >100.000 UIU/ML code = 2821) [id number] 00:00:00 Test Item Value Reference Range Interpretation Comments TSH, THIRD GENERATION (test >100.000 UIU/ML code = 2821) [id number] 00:00:00 Test Item Value Reference Range Interpretation Comments TSH, THIRD GENERATION (test >100.000 UIU/ML code = 2821) COMPREHENSIVE METABOLIC [id number] 00:00:00 Test Item Value Reference Range Interpretation Comments GLUCOSE (test code = 2217) 103 MG/DL BUN (test code = 2208) 35 MG/DL CREATININE (test code = 2214) 6.37 MG/DL eGFR AMER. (test code 11 ML/MIN/1.73 = 37148) eGFR NON- AMER. (test 9 ML/MIN/1.73 code = 52145) CALC BUN/CREAT (test code = 5 RATIO [...] code = 2219) 10 U/L COMPREHENSIVE METABOLIC [id number] 00:00:00 Test Item Value Reference Range Interpretation Comments GLUCOSE (test code = 2217) 103 MG/DL BUN (test code = 2208) 35 MG/DL CREATININE (test code = 2214) 6.37 MG/DL eGFR AMER. (test code 11 ML/MIN/1.73 = 68394) eGFR NON- AMER. (test 9 ML/MIN/1.73 code = 05428) CALC BUN/CREAT (test code = 5 RATIO 2235) SODIUM (test code = 2231) 141 MEQ/L POTASSIUM (test code = 2228) 3.8 MEQ/L CHLORIDE (test code = 2215) 96 MEQ/L CARBON DIOXIDE (test code = 27 MEQ/L 6) CALCIUM (test code = 2209) 11.0 MG/DL [...] (test code = 2219) 10 U/L LIPID [id number] 00:00:00 Test Item Value Reference Range Interpretation Comments CHOLESTEROL (test code = 2210) 240 MG/DL TRIGLYCERIDES (test code = 2232) 395 MG/DL HDL CHOLESTEROL (test code = 2220) 55 MG/DL CALC LDL CHOL (test code = 2237) 106 MG/DL RISK RATIO LDL/HDL (test code = 1.93 RATIO 2238) LIPID [id number] 00:00:00 Test Item Value Reference Range Interpretation Comments CHOLESTEROL (test code = 2210) 240 MG/DL TRIGLYCERIDES (test code = 2232) 395 MG/DL HDL CHOLESTEROL (test code = 2220) 55 MG/DL CALC LDL CHOL (test code = 2237) 106 MG/DL RISK RATIO LDL/HDL (test code = 1.93 RATIO 2238) CBC W/AUTO [id number] 00:00:00 Test Item Value Reference Range Interpretation [...] code = 1015) 327 K/UL CBC W/AUTO [id number] 00:00:00 Test Item Value Reference Range Interpretation [...] code = 1015) 327 K/UL CBC W/AUTO [id number] 00:00:00 Test Item Value Reference Range Interpretation [...] (test code = 1015) 327 K/UL HEMOGLOBIN [id number] 00:00:00 Test Item Value Reference Range Interpretation Comments HEMOGLOBIN A1c (test code = 63419) 6.2 % HEMOGLOBIN [id number] 00:00:00 Test Item Value Reference Range Interpretation Comments HEMOGLOBIN A1c (test code = 76175) 6.2 % HEMOGLOBIN [id number] 00:00:00 Test Item Value Reference Range Interpretation Comments HEMOGLOBIN A1c (test code = 84311) 6.2 % [id number] 00:00:00 Test Item Value Reference Range Interpretation Comments TSH, THIRD GENERATION (test >100.000 UIU/ML code = 2821) [id number] 00:00:00 Test Item Value Reference Range Interpretation Comments TSH, THIRD GENERATION (test >100.000 UIU/ML code = 2821) [id number] 00:00:00 Test Item Value Reference Range Interpretation Comments TSH, THIRD GENERATION (test >100.000 UIU/ML code = 2821) COMPREHENSIVE METABOLIC [id number] 00:00:00 Test Item Value Reference Range Interpretation Comments GLUCOSE (test code = 2217) 103 MG/DL BUN (test code = 2208) 35 MG/DL CREATININE (test code = 2214) 6.37 MG/DL eGFR AMER. (test code 11 ML/MIN/1.73 = 44140) eGFR NON- AMER. (test 9 ML/MIN/1.73 code = 47575) CALC BUN/CREAT (test code = 5 RATIO 2235) SODIUM (test code = 2231) 141 MEQ/L POTASSIUM (test code = 2228) 3.8 MEQ/L CHLORIDE (test code = 2215) 96 MEQ/L CARBON DIOXIDE (test code = 27 MEQ/L 220) CALCIUM (test code = 2209) 11.0 MG/DL PROTEIN, TOTAL (test code = 8.8 G/DL 222) ALBUMIN (test code = 2201) 5.6 G/DL CALC GLOBULIN (test code = 3.2 G/DL 2240) CALC A/G RATIO (test code = 1.8 RATIO 2234) BILIRUBIN, TOTAL (test code = 0.2 MG/DL 2206) ALKALINE PHOSPHATASE (test 58 U/L code = 2204) AST (test code = 2218) 10 U/L ALT (test code = 2219) 10 U/L COMPREHENSIVE METABOLIC [id number] 00:00:00 Test Item Value Reference Range Interpretation Comments GLUCOSE (test code = 2217) 103 MG/DL BUN (test code = 2208) 35 MG/DL CREATININE (test code = 2214) 6.37 MG/DL eGFR AMER. (test code 11 ML/MIN/1.73 = 49670) eGFR NON- AMER. (test 9 ML/MIN/1.73 code = 58132) CALC BUN/CREAT (test code = 5 RATIO [...] (test code = 2219) 10 U/L LIPID [id number] 00:00:00 Test Item Value Reference Range Interpretation Comments CHOLESTEROL (test code = 2210) 240 MG/DL TRIGLYCERIDES (test code = 2232) 395 MG/DL HDL CHOLESTEROL (test code = 2220) 55 MG/DL CALC LDL CHOL (test code = 2237) 106 MG/DL RISK RATIO LDL/HDL (test code = 1.93 RATIO 2238) LIPID [id number] 00:00:00 Test Item Value Reference Range Interpretation Comments CHOLESTEROL (test code = 2210) 240 MG/DL TRIGLYCERIDES (test code = 2232) 395 MG/DL HDL CHOLESTEROL (test code = 2220) 55 MG/DL CALC LDL CHOL (test code = 2237) 106 MG/DL RISK RATIO LDL/HDL (test code = 1.93 RATIO 2238) CBC W/AUTO [id number] 00:00:00 Test Item Value Reference Range Interpretation [...] code = 1015) 327 K/UL CBC W/AUTO [id number] 00:00:00 Test Item Value Reference Range Interpretation [...] code = 1015) 327 K/UL CBC W/AUTO [id number] 00:00:00 Test Item Value Reference Range Interpretation [...] (test code = 1015) 327 K/UL HEMOGLOBIN [id number] 00:00:00 Test Item Value Reference Range Interpretation Comments HEMOGLOBIN A1c (test code = 78268) 6.2 % HEMOGLOBIN [id number] 00:00:00 Test Item Value Reference Range Interpretation Comments HEMOGLOBIN A1c (test code = 86827) 6.2 % HEMOGLOBIN [id number] 00:00:00 Test Item Value Reference Range Interpretation Comments HEMOGLOBIN A1c (test code = 52524) 6.2 % [id number] 00:00:00 Test Item Value Reference Range Interpretation Comments TSH, THIRD GENERATION (test >100.000 UIU/ML code = 2821) [id number] 00:00:00 Test Item Value Reference Range Interpretation Comments TSH, THIRD GENERATION (test >100.000 UIU/ML code = 2821) [id number] 00:00:00 Test Item Value Reference Range Interpretation Comments TSH, THIRD GENERATION (test >100.000 UIU/ML code = 2821)
[2022-05-11 02:15] LABS: Absolute Lymphocytes (CBC) 0.6 K/uL (0.7-4.9); Hematocrit 28.9 % (39.6-49.0); Lymphocytes % 5.7 % (15.3-44.8); MCV 97.5 fL (80-100); MPV 7.1 fL (7.6-11.3); RBC Red Blood Cell Count 2.97 M/uL (4.33-5.43)
[2022-05-11 02:42] LABS: Albumin 4.1 g/dL (3.4-5.0); Bilirubin Total 1.5 mg/dL (0.2-1.0); Protein, Total 7.9 g/dL (6.4-8.2)
[2022-05-11 02:43] LABS: Potassium 5.9 mmol/L (3.5-5.1)
--- NOTE | 2022-05-11 03:21 | ER ---
Nurse's Notes [facility] Name: Alejandro Dunbra Age: 56 yrs Sex: Male : 1965 Arrival Date: 05/11/2022 Time: 00:47 Bed 16 Private MD: Diagnosis: Acute respiratory failure with hypoxia;Acute pulmonary edema;Hyperkalemia Presentation: 05/11 01:00 Chief complaint: EMS states: SOB, difficulty breathing when going to bed. [facility] pf1 stated patient's 02 saturation was 84% on RA on scene. 01:00 Coronavirus screen: Client denies travel out of the [place] in the last 14 days. Client pf1 presents with at least one sign or symptom that may indicate coronavirus-19. Standard/surgical mask placed on the client. Ebola Screen: Patient negative for fever greater than or equal to 101.5 degrees Fahrenheit, and additional compatible Ebola Virus Disease symptoms. Initial Sepsis Screen: Does the patient meet any 2 criteria? No. Patient's initial sepsis screen is negative. Does the patient have a suspected source of infection? No. Patient's initial sepsis screen is negative. Risk Assessment: Do you want to hurt yourself or someone else? Patient reports no desire to harm self or others. Onset of symptoms was May 10, 2022. 01:00 Method Of Arrival: EMS: [facility] pf1 01:00 Acuity: KERRI 3 pf1 Historical: - Allergies: 03:06 No Known Allergies; pf1 - PMHx: 03:06 Diabetes - NIDDM; Dialysis; High Cholesterol; Hypertension; Hypothyroidism; pf1 - Immunization history:: Adult Immunizations unknown. - Family history:: not pertinent. - Social history:: Smoking status: unknown. Screenin:00 [facility] ED Fall Risk Assessment (Adult) History of falling in the last 3 months, pf1 including since admission No falls in past 3 months (0 pts) Confusion or Disorientation No (0 pts) Intoxicated or Sedated No (0 pts) Impaired Gait Yes (1 pt) Mobility Assist Device Used No (0 pt) Altered Elimination No (0 pt) Score/Fall Risk Level 0 - 2 = Low Risk Oriented to surroundings, Maintained a safe environment, Educated pt \T\ family on fall prevention, incl call for assistance when getting out of bed, Assessed \T\ reinforced patient's understanding of fall precautions, Provided non-skid footwear, Hourly rounding (assess needs \T\ fall precautionary measures) done, Used ambulatory aids as needed (educated on \T\ assisted with), Used gait belt as appropriate. 01:00 Abuse screen: Denies threats or abuse. Nutritional screening: No deficits noted. pf1 Tuberculosis screening: No symptoms or risk factors identified. Assessment: 01:00 General: Appears in no apparent distress. comfortable, well developed, Behavior is pf1 calm, cooperative, appropriate for age, quiet. 01:00 Pain: Denies pain. Neuro: No deficits noted. Level of Consciousness is awake, alert, pf1 obeys commands, Oriented to person, place, time, situation. Cardiovascular: Reports shortness of breath. Cardiovascular: Capillary refill < 3 seconds Patient's skin is warm and dry. Respiratory: Reports shortness of breath at rest cough that is Airway is patent Trachea midline Respiratory effort is even, unlabored, Respiratory pattern is regular, symmetrical, Breath sounds are clear bilaterally. 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 GI: No deficits noted. No signs and/or symptoms were reported involving the gastrointestinal system. Abdomen is round non-distended, Bowel sounds present X 4 quads. Abd is soft and non tender X 4 quads. : No deficits noted. No signs and/or symptoms were reported regarding the genitourinary system. EENT: No deficits noted. No signs and/or symptoms were reported regarding the EENT system. Derm: No deficits noted. No signs and/or symptoms reported regarding the dermatologic system. Skin is intact, Skin is dry, Skin is pink, warm \T\ dry. Musculoskeletal: No deficits noted. No signs and/or symptoms reported regarding the musculoskeletal system. 02:00 Reassessment: Patient appears in no apparent distress at this time. No changes from pf1 previously documented assessment. Patient and/or family updated on plan of care and expected duration. Pain level reassessed. 02:59 Reassessment: Patient appears in no apparent distress at this time. No changes from pf1 previously documented assessment. Patient and/or family updated on plan of care and expected duration. Pain level reassessed. 04:00 Reassessment: Patient appears in no apparent distress at this time. Patient and/or pf1 family updated on plan of care and expected duration. Pain level reassessed. Patient states symptoms have not improved. 05:00 Reassessment: Patient appears in no apparent distress at this time. Patient and/or pf1 family updated on plan of care and expected duration. Pain level reassessed. Patient states symptoms have improved. Patient on CPAP at this time. lights dimmed. patient connected to cardiac monitoring.. 06:00 Reassessment: Patient appears in no apparent distress at this time. No changes from pf1 previously documented assessment. Patient states symptoms have improved. Vital Signs: 01:00 BP 137 / 69; Pulse 65; Resp 16; Temp 97.7; Pulse Ox 97% on 3 lpm NC; Weight 81.65 kg; pf1 Pain 0/10; 02:00 BP 158 / 82; Pulse 80; Resp 16; Pulse Ox 94% on 3 lpm NC; pf1 03:00 BP 154 / 102; Pulse 73; Resp 18; Pulse Ox 93% on 3 lpm NC; pf1 04:00 BP 157 / 75; Pulse 72; Resp 16; Temp 98(A); Pulse Ox 95% on 40% CPAP; pf1 05:00 BP 143 / 77; Pulse 63; Resp 20; Pulse Ox 96% on 40% CPAP; pf1 06:00 BP 140 / 84; Pulse 61; Resp 14; Temp 97.9(A); Pulse Ox 97% on CPAP; Pain 0/10; pf1 ED Course: 00:47 Patient arrived in ED. vc1 00:47 Gerardo Mckoy MD is Attending Physician. rt 01:00 Patient has correct armband on for positive identification. Placed in gown. Bed in low pf1 position. Call light in reach. Side rails up X2. 01:00 Patient placed in an exam room, on a stretcher. kr3 01:10 Chest Single View XRAY In Process Unspecified. EDMS 01:30 Inserted saline lock: 22 gauge in right antecubital area, using aseptic technique. pf1 Blood collected. 01:37 Gissell jarrell, SANJAY is Primary Nurse. pf1 01:38 Troponin High Sensitivity Sent. pf1 01:38 CMP Sent. pf1 01:38 CBC with Diff Sent. pf1 01:47 Triage completed. pf1 03:19 Danis Bess MD is Hospitalizing Provider. rt 04:22 SARS RAPID Sent. pf1 05/12 08:24 Report given to SANJAY Acosta second floor. kr3 09:04 No provider procedures requiring assistance completed. Patient admitted, IV remains in kr3 place. Administered Medications: 05/11 04:20 Drug: D10 in Water [4ml/kg] 250 ml Route: IVP; Site: right antecubital; pf1 04:59 Follow up: Response: No adverse reaction pf1 04:30 Drug: Albuterol 10 mg Route: Inhalation; pf1 05:30 Follow up: Response: No adverse reaction; No change in condition pf1 04:30 Drug: Lasix (furosemide) 60 mg Route: IVP; Site: right antecubital; pf1 05:07 Follow up: Response: No adverse reaction; No change in condition pf1 04:30 Drug: Kayexalate (polystyrene) 15 grams Route: PO; pf1 05:06 Follow up: Response: No adverse reaction pf1 04:35 Drug: Insulin Regular Human 10 units {Co-Signature: ha1 (Stacia Jordan RN).} Route: IVP; pf1 Site: right antecubital; 05:00 Follow up: Response: No adverse reaction; No change in condition pf1 04:44 Not Given (order changed per Dr. Mccann): Kayexalate (polystyrene) 60 grams PO oncepf1 04:45 Drug: Sodium Bicarbonate 50 mEq Route: IVP; Site: right antecubital; pf1 05:30 Follow up: Response: No adverse reaction; No change in condition pf1 04:58 Drug: Calcium Gluconate 1 grams Route: IVPB; Infused Over: 60 mins; Site: right pf1 antecubital; 06:00 Follow up: IV Status: Completed infusion; IV Intake: 50ml pf1 Medication: 03:04 VIS not applicable for this client. pf1 Intake: 06:00 IV: 50ml; Total: 50ml. pf1 Outcome: 03:20 Decision to Hospitalize by Provider. rt 05/12 09:04 Admitted to Med/surg kr3 Condition: stable Instructed on the need for admit. 09:06 Patient left the ED. kr3 Signatures: Dispatcher [employer] EDMS Judy Phillips RN RN 1 Angela Judge RN RN kr3 Gerardo Mckoy MD MD rt Gissell jarrell, RN RN pf1 Stacia Jordan RN ha1
--- NOTE | 2022-05-11 03:21 | EDPHYS ---
Physician Documentation [facility] Name: Alejandro Dunbar Age: 56 yrs Sex: Male : 1965 Arrival Date: 05/11/2022 Time: 00:47 Bed 16 Private MD: ED Physician Gerardo Mckoy HPI: 05/11 01:58 This 56 yrs old Male presents to ER via EMS with complaints of shortness of rt breath. 01:58 The patient has shortness of breath at rest. Onset: The symptoms/episode began/occurred rt acutely, 2 hour(s) ago. Duration: The symptoms are continuous. The patient's shortness of breath is alleviated by application of supplemental oxygen. Associated signs and symptoms: Pertinent positives: productive cough. Severity of symptoms: At their worst the symptoms were moderate. Presents to the ED with her dyspnea. Patient is a Wednesday dialysis patient. Reportedly had an oxygen saturation of 84% on room air, improved with supplemental O2. Denies other acute complaints at this time, symptoms are moderate in severity, no other aggravating alleviating factors.. Historical: - Allergies: 03:06 No Known Allergies; pf1 - PMHx: 03:06 Diabetes - NIDDM; Dialysis; High Cholesterol; Hypertension; Hypothyroidism; pf1 - Immunization history:: Adult Immunizations unknown. - Family history:: not pertinent. - Social history:: Smoking status: unknown. ROS: 02:00 Constitutional: Negative for fever, chills, and weight loss, Eyes: Negative for injury, rt pain, redness, and discharge, ENT: Negative for injury, pain, and discharge, Cardiovascular: Negative for chest pain, palpitations, and edema, Abdomen/GI: Negative for abdominal pain, nausea, vomiting, diarrhea, and constipation, MS/Extremity: Negative for injury and deformity, Skin: Negative for injury, rash, and discoloration, Neuro: Negative for headache, weakness, numbness, tingling, and seizure, Psych: Negative for depression, anxiety, suicide ideation, homicidal ideation, and hallucinations. 02:00 Respiratory: Positive for cough, shortness of breath. Exam: 02:00 Constitutional: This is a well developed, well nourished patient who is awake, alert, rt and in no acute distress. Head/Face: Normocephalic, atraumatic. Eyes: Pupils equal round and reactive to light, extra-ocular motions intact. Lids and lashes normal. Conjunctiva and sclera are non-icteric and not injected. Cornea within normal limits. Periorbital areas with no swelling, redness, or edema. Chest/axilla: Normal chest wall appearance and motion. Nontender with no deformity. No lesions are appreciated. Cardiovascular: Regular rate and rhythm with a normal S1 and S2. No gallops, murmurs, or rubs. Normal PMI, no JVD. No pulse deficits. Respiratory: Lungs have equal breath sounds bilaterally, clear to auscultation and percussion. No rales, rhonchi or wheezes noted. No increased work of breathing, no retractions or nasal flaring. Abdomen/GI: Soft, non-tender, with normal bowel sounds. No distension or tympany. No guarding or rebound. No evidence of tenderness throughout. Skin: Warm, dry with normal turgor. Normal color with no rashes, no lesions, and no evidence of cellulitis. MS/ Extremity: Pulses equal, no cyanosis. Neurovascular intact. Full, normal range of motion. Neuro: Awake and alert, GCS 15, oriented to person, place, time, and situation. Cranial nerves II-XII grossly intact. Motor strength 5/5 in all extremities. Sensory grossly intact. Cerebellar exam normal. Normal gait. Psych: Awake, alert, with orientation to person, place and time. Behavior, mood, and affect are within normal limits. 02:00 ECG was reviewed by the Attending Physician. Vital Signs: 01:00 BP 137 / 69; Pulse 65; Resp 16; Temp 97.7; Pulse Ox 97% on 3 lpm NC; Weight 81.65 kg; pf1 Pain 0/10; 02:00 BP 158 / 82; Pulse 80; Resp 16; Pulse Ox 94% on 3 lpm NC; pf1 03:00 BP 154 / 102; Pulse 73; Resp 18; Pulse Ox 93% on 3 lpm NC; pf1 04:00 BP 157 / 75; Pulse 72; Resp 16; Temp 98(A); Pulse Ox 95% on 40% CPAP; pf1 05:00 BP 143 / 77; Pulse 63; Resp 20; Pulse Ox 96% on 40% CPAP; pf1 06:00 BP 140 / 84; Pulse 61; Resp 14; Temp 97.9(A); Pulse Ox 97% on CPAP; Pain 0/10; pf1 MDM: 00:48 Patient medically screened. rt 03:31 Differential diagnosis: Ammonia, uremia, pulmonary edema, hyperkalemia. Data reviewed: rt vital signs, nurses notes, old medical records, lab test result(s), EKG, radiologic studies. ED course: Patient presents to the ED with dyspnea, hypoxia. He is found to have a pulmonary edema, vital signs are correcting with supplemental O2. He is found to have a hyperkalemia as well as an elevated BUN. The patient has worsening confusion, suspect that he is uremic. Hyperkalemia cocktail was given, patient will be admitted for further care.. 05/11 00:54 Order name: CBC with Diff; Complete Time: 02:37 rt 05/11 00:54 Order name: CMP; Complete Time: 02:46 rt 05/11 00:54 Order name: Troponin High Sensitivity; Complete Time: 02:46 rt 05/11 04:06 Order name: SARS RAPID vc1 05/11 04:43 Order name: SARS-COV-2 Antigen Rapid; Complete Time: 10:10 EDMS 05/11 10:09 Order name: Basic Metabolic Panel; Complete Time: 21:12 EDMS 05/11 10:09 Order name: T4 Free; Complete Time: 21:12 EDMS 05/11 10:35 Order name: ABG Arterial Blood Gas; Complete Time: 21:12 EDMS 05/11 10:44 Order name: ABG Arterial Blood Gas; Complete Time: 21:12 EDMS 05/11 11:57 Order name: Thyroid Stimulating Hormone; Complete Time: 21:12 EDMS 05/11 17:00 Order name: Hep B surface AG w/Reflex; Complete Time: 21:12 EDMS 05/11 17:00 Order name: Hepatitis B Surface Ab, QL/QN; Complete Time: 21:12 EDMS 05/11 17:00 Order name: HBsAG Nonreactive Report; Complete Time: 21:12 EDMS 05/11 17:02 Order name: Basic Metabolic Panel; Complete Time: 21:12 EDMS 05/11 00:54 Order name: Chest Single View XRAY rt 05/11 00:54 Order name: EKG; Complete Time: 00:55 rt 05/11 00:54 Order name: EKG - Nurse/Tech; Complete Time: 01:38 rt 05/11 17:30 Order name: Glucose, Ancillary Testing; Complete Time: 21:12 EDMS 05/11 21:05 Order name: Glucose, Ancillary Testing; Complete Time: 21:12 EDMS EC:00 Rate is 63 beats/min. Rhythm is regular, Normal Sinus Rhythm with No ectopy. QRS [place] rt is Normal. SC interval is normal. QRS interval is normal. QT interval is normal. No Q waves. T waves are Normal. No ST changes noted. Administered Medications: 04:20 Drug: D10 in Water [4ml/kg] 250 ml Route: IVP; Site: right antecubital; pf1 04:59 Follow up: Response: No adverse reaction pf1 04:30 Drug: Albuterol 10 mg Route: Inhalation; pf1 05:30 Follow up: Response: No adverse reaction; No change in condition pf1 04:30 Drug: Lasix (furosemide) 60 mg Route: IVP; Site: right antecubital; pf1 05:07 Follow up: Response: No adverse reaction; No change in condition pf1 04:30 Drug: Kayexalate (polystyrene) 15 grams Route: PO; pf1 05:06 Follow up: Response: No adverse reaction pf1 04:35 Drug: Insulin Regular Human 10 units {Co-Signature: ha1 (Stacia Jordan RN).} Route: IVP; pf1 Site: right antecubital; 05:00 Follow up: Response: No adverse reaction; No change in condition pf1 04:44 Not Given (order changed per Dr. Mccann): Kayexalate (polystyrene) 60 grams PO oncepf1 04:45 Drug: Sodium Bicarbonate 50 mEq Route: IVP; Site: right antecubital; pf1 05:30 Follow up: Response: No adverse reaction; No change in condition pf1 04:58 Drug: Calcium Gluconate 1 grams Route: IVPB; Infused Over: 60 mins; Site: right pf1 antecubital; 06:00 Follow up: IV Status: Completed infusion; IV Intake: 50ml pf1 Disposition: 03:31 Critical Care:. rt Disposition Summary: 05/11/22 03:20 Hospitalization Ordered Hospitalization Status: Observation rt Provider: Danis Bess rt Condition: Serious rt Problem: an acute exacerbation rt Symptoms: have improved rt Bed/Room Type: Standard rt Location: Telemetry/MedSurg (observation)(05/12/22 08:02) bd Room Assignment: 401(05/12/22 08:02) bd Diagnosis - Acute respiratory failure with hypoxia rt - Acute pulmonary edema rt - Hyperkalemia rt Forms: - Medication Reconciliation Form rt - SBAR form rt Critical care time excluding procedures: 03:31 Critical care time: Bedside Care: 30 minutes, Consultation: 5 minutes. Total time: 35 rt minutes Signatures: Dispatcher [employer] EDMS Earline Wiley bd Nadeen Ojeda, GRADUATING MACHINE OPERATOR-C GRADUATING MACHINE OPERATOR-Csnw Isabel Han RN RN ss Jameson Parsons FNP-C FNP-Cla1 Celestine Connors RN RN ja1 Angela Judge RN RN [email or web address] Daniella Hanson PA-C PAOrestesC sb4 Gerardo Mckoy MD MD rt Gissell jarrell RN RN pf1 Stacia Jordan RN ha1 Corrections: (The following items were deleted from the chart) 07:42 03:20 rt ja1 09:31 03:20 Telemetry/MedSurg (observation) rt ss 09:31 07:42 422 ja1 ss 11:02 09:31 [facility] ER HOLD ss ss 11:02 09:31 ss ss 05/12 08:02 05/11 11:02 [facility] ER HOLD ss bd 05/12 08:02 05/11 11:02 ERHOLD- ss bd
--- NOTE | 2022-05-11 04:02 | P.HP ---
Certification for Inpatient Patient admitted to: Observation With expected LOS: >2 Midnights Patient will require the following post-hospital care: None Practitioner: I am a practitioner with admitting privileges, knowledge of patient current condition, hospital course, and medical plan of care. Services: Services provided to patient in accordance with Admission requirements found in Title 42 Section 412.3 of the Code of Federal Regulations Patient History Date of Service: 05/11/22 Reason for admission: Hyperkalemia, pulmonary edema History of Present Illness: 56-year-old male with history of ESRD on HD MWF, hypothyroidism, diabetes mellitus type 2 presents the emergency department for dyspnea, hypoxia. He was evaluated in the emergency department, his labs were significant for redemonstration of his ESRD with hyperkalemia, significantly elevated BUN. Chest x-ray was performed which revealed suspected pulmonary edema. Patient tolerating nasal cannula well. His speech is a bit garbled although he does appear to be oriented, primarily Mongolian-speaking but able to tell us his name, date of . Patient with hospitalization here in March during which time he required trach to be placed after developing acute respiratory failure. He was treated in the emergency department for the hyperkalemia. Will admit to the hospital for further evaluation and management, dialysis. Allergies No Known Allergies Allergy (Verified 06/16/20 13:22) Home Medications: Albuterol Sulfate [Proair Hfa] 2 puff IH Q4HP PRN 06/25/20 Ergocalciferol (Vitamin D2) [Vitamin D2] 50,000 unit PO SEECOM 06/25/20 Fluticasone [Flonase 50MCG Nasal [place]*] 1 puff IH DAILY 06/25/20 Hydrocodone/Acetaminophen [Hydrocodone-Acetamin 10-325 mg] 1 tab PO Q6HP PRN 06/25/20 Levothyroxine [Synthroid*] 1 tab PO [id number] 06/25/20 Sevelamer Carbonate 1 tab PO TIDWM 06/25/20 Azithromycin Tab [Zithromax*] 250 mg PO DAILY #5 tab 03/19/22 Cefdinir [Cefdinir*] 300 mg PO BID #14 cap 03/19/22 Guaifenesin [Mucinex] 600 mg PO Q12H PRN #30 tab 03/19/22 predniSONE [Deltasone] 20 mg PO BID #11 tab 03/19/22 Fluticasone/Salmeterol [Advair 250-50 Diskus] 1 each IH BID 30 Days #60 aero 03/20/22 - Past Medical/Surgical History Diabetic: Yes -: hypertension -: hypothyroid -: TYPE 2 DIABETES -: Dyslipidemia -: ESRDMWF -: Trach with reversal Psychosocial/ Personal History: Unable to obtain - Family History Sister -: Diabetes - Social History Alcohol use: No CD- Drugs: No Caffeine use: Yes Review of Systems 10-point ROS is otherwise unremarkable Respiratory: Cough, Shortness of Breath Physical Examination - Physical Exam General: Alert, In no apparent distress, Oriented x2 HEENT: Atraumatic, PERRLA, Mucous membr. moist/pink, EOMI, Sclerae nonicteric Neck: Supple, 2+ carotid pulse no bruit, No LAD, Without JVD or thyroid abnormality Respiratory: Clear to auscultation bilaterally, Normal air movement Cardiovascular: No edema, Regular rate/rhythm, Normal S1 S2 Capillary refill: <2 Seconds Gastrointestinal: Normal bowel sounds, No tenderness Musculoskeletal: No tenderness Integumentary: No rashes Neurological: Normal strength at 5/5 x4 extr, Normal tone, Normal affect, Abnormal speech (Speech slurred) - Studies Laboratory Data (last 24 hrs) 05/11/22 01:30: Sodium 134 L, Potassium 5.9 H*, BUN 83 H, Creatinine 11.50 H*, Glucose 184 H, Total Bilirubin 1.5 H, AST 35, ALT 67 H, Alkaline Phosphatase 83 05/11/22 01:30: WBC 10.70, Hgb 9.6 L, Hct 28.9 L, Plt Count 316 Assessment and Plan - Plan Assessment: ESRD on HD MWF with pulmonary edema/hyperkalemia Diabetes mellitus type 2 Hypothyroidism Plan: ESRD on HD MWF with pulmonary edema/hyperkalemia: Nephrology consult in place, patient will need dialysis. We will also order ABG to further evaluate hypoxia/respiratory failure. Diabetes mellitus type 2: ACHS Accu-Chek, sliding scale insulin. Hypothyroidism: Continue medication, recheck TSH. DVT PPX: Heparin Code status: Full Discharge Plan: Home Plan to discharge in: 24 Hours - Advance Directives Does patient have a Living Will: No Does patient have a Durable POA for Healthcare: No - Code Status/Comfort Care Code Status Assessed: Yes (Full code) Critical Care: No Time Spent Managing Pts Care (In Minutes): 55
[2022-05-11] MEDS ORDERED: INSULIN -REGULAR HUMAN 50 UNIT/0.5 ML ML ONE (04:05)
[2022-05-11] MEDS ORDERED: ALBUTEROL 2.5 MG/3 ML NEB SOL ONE (04:08)
[2022-05-11] MEDS ORDERED: FUROSEMIDE 40 MG/4 ML VIAL ONE (04:08)
[2022-05-11] MEDS ORDERED: FUROSEMIDE 20 MG/ 2ML VIAL ONE (04:08)
[2022-05-11] MEDS ORDERED: SOD POLYSTYREN SUL 15 GM/60 ML UCUP ONE (04:09)
[2022-05-11] MEDS ORDERED: CALCIUM GLUCONATE 1 GM IVPB 1 GM/50 ML BAG IV ONE ×3 (04:09→09:31)
[2022-05-11] MEDS ORDERED: D10W 250 ML IV ONE (04:09)
[2022-05-11] MEDS ORDERED: SODIUM BICARB 50 MEQ/50ML VIAL ONE (04:09)
[2022-05-11 04:42] LABS: SARS-CoV-2 Antigen Rapid Res Negative (Negative)
[2022-05-11] MEDS ORDERED: ALBUTEROL 2.5 MG/3 ML NEB SOL NEB PRN ×2 (07:53→14:00)
[2022-05-11] MEDS ORDERED: ONDANSETRON 4 MG/2 ML VIAL IV PRN (07:53)
[2022-05-11] MEDS: INSULIN -REGULAR HUMAN 50 UNIT/0.5 ML ML SQ SCH ×4 (07:53→20:52)
[2022-05-11] MEDS: HEPARIN 5000 UNIT/ML 1 ML VIAL SQ SCH ×2 (09:00→21:00)
--- NOTE | 2022-05-11 09:18 | P.PN ---
Date of Service: 05/11/22 Subjective Pts chart reviewed; ABG reviewed; Notified Nephrology and Pulmonary; 2 amps of sodium bicarb given and changed BiPAP settings. May need intubation if not responding Physical Examination - Vital Signs Reviewed - Physical Exam General: Responds to painful stimuli Respiratory: Diminished bilaterally. Cardiovascular: Regular rate/rhythm, Normal S1 S2, Gastrointestinal: Soft and benign, Non-distended, No tenderness, No rebound, No guarding Neurological: No focal deficits Assessment And Plan - Assessment 1. Acute Hypercapnic Respiratory Failure with metabolic acidosis 2. Severe Pulmonary Hypertension 3. End-Stage Renal Disease 4. Hyperkalemia 5. Right Pulmonary Nodule (9 mm) 6. Type II Diabetes Mellitus 7. Hypothyroidism - Plan -BIPAP -IV steroids -Continue with hemodialysis per nephrology -Pulmonary & Nephrology consult
[2022-05-11] MEDS ORDERED: HEPARIN 5000 UNIT/ML 1 ML VIAL ONE (09:32)
[2022-05-11 10:09] LABS: Potassium 7.1 mmol/L (3.5-5.1)
[2022-05-11 10:32] LABS: Arterial Blood Carboxyhemoglob 0.6 % (0-1.5); Blood Gas Oxyhemoglobin 83.5 % (94-97); Blood O2 Saturation 85.3 % (92-98.5)
[2022-05-11 10:43] LABS: Arterial Blood Carboxyhemoglob 0.6 % (0-1.5); Blood Gas Oxyhemoglobin 83.6 % (94-97); Blood O2 Saturation 85.4 % (92-98.5)
[2022-05-11] MEDS ORDERED: ALBUMIN HUMAN 25% 100 ML IV ONE (10:57)
[2022-05-11] MEDS ORDERED: MANNITOL 25% 12.5 GM/50 ML VIAL IV PRN (10:57)
[2022-05-11] MEDS ORDERED: LEVOTHYROXINE SODIUM 100 MCG VIAL IV SCH (15:00)
[2022-05-11] MEDS ORDERED: SODIUM CHLORIDE 0.9% 10ML INJ IV SCH (15:00)
--- NOTE | 2022-05-11 16:25 | EKG ---
Test Date: 2022-05-11 Test Time: 01:14:47 Direct Marketing Analyst: DAQUAN MEASUREMENT RESULTS: Intervals: Rate: 63 IN: 182 QRSD: 92 QT: 414 QTc: 423 [place]: P: 34 IN: 182 QRS: 62 T: 71 INTERPRETIVE STATEMENTS: Normal sinus rhythm Normal ECG Compared to ECG 03/17/2022 10:52:25 ST (T wave) deviation no longer present Electronically Signed On 05-11-22 16:24:41 DESIGN RELEASE ENGINEER by Joe Al
[2022-05-11 16:59] LABS: Hepatitis B Surface Ab - Quant 356.46 mIU/mL (<8.0); Hepatitis B surface AG Interp. Nonreactive (Nonreactive)
[2022-05-11] MEDS ORDERED: HYDROCORTISONE SUC 100 MG INJ IV ONE (17:00)
[2022-05-11] MEDS ORDERED: HYDROCORTISONE SUC 100 MG INJ ONE ×2 (17:21→21:16)
[2022-05-11] MEDS: HYDROCORTISONE SUC 100 MG INJ IV SCH (21:00)
--- NOTE | 2022-05-11 23:58 | CON ---
Date of Consultation: 05/11/2022 Chief Complaint: End-stage renal disease, hyperkalemia, pulmonary edema, and shortness of breath. History Of Present Illness: The patient is a 56-year-old man with history of end-stage renal disease , on hemodialysis on Wednesday, Wednesday, and Wednesday; diabetes mellitus; hypertension; anemia; CKD; hyp othyroidism; previous admission for severe respiratory failure and he required trach placement. Ches t x-ray was done in the emergency room and showed suspected pulmonary edema. Blood work revealed sev ere hyperkalemia, potassium was 7.1. Subsequently, the patient received medication to control hyperk alemia and potassium was 5.6. The patient was found to have respiratory acidosis with pCO2 retention and Pulmonary Service was consulted. The patient received CPAP and antibiotics were started for pos sible pneumonia. The patient was scheduled to have urgent dialysis for volume control and metabolic clearance. Prior to dialysis, potassium was re-evaluated and it was 7.1. Potassium on presentation was also elevated to 7.1, and subsequently after treatment was improved to 5.9. Review of Systems: Unobtainable. Physical Examination: General: The patient is lethargic, although he follows some commands. Eyes: Anicteric sclerae. EOMI. Neck: Supple. No bruits. Lungs: Diminished breath sounds bilaterally. No rhonchi. No wheezing. Heart: S1, S2. No pericardial friction rub. Abdomen: Soft. Extremities: No edema. Laboratory Data: Potassium 5.9, sodium 134, creatinine 11.5, and BUN 93. Hemoglobin 9.6 and platele t count 316. Impression And Plan: 1.Hyperkalemia. The patient had potassium re-evaluated and it was 7.1. Subsequently, he received d ialysis and post dialysis, potassium is 4.0. The patient has respiratory acidosis with pCO2 retentio n. Continue BiPAP. Further recommendation from Primary Team and Pulmonology. 2.Hypothyroidism. TSH level is 118. The patient has severe hypothyroidism. Resume medication for thyroid dysfunction. 3.Hypotension. Blood pressure currently stable. The patient does not require pressors. Continue t o monitor blood pressure during dialysis and plan is to use Mannitol for blood pressure support. 4.Anemia in chronic kidney disease. Monitor hemoglobin level and adjust SUMIT as needed. 5.Renal osteodystrophy. Monitor phosphorus level. Currently, the patient cannot swallow. He is ob tunded. He will need a Speech Therapy evaluation when respiratory failure is well controlled. EB/MODL Voice ID: [id number] Report ID: [id number]
[2022-05-12] MEDS ORDERED: LEVOTHYROXINE SODIUM 100 MCG VIAL IV SCH (06:00)
[2022-05-12] MEDS ORDERED: LEVOTHYROXINE SOD 0.1 MG TAB PO SCH (06:30)
[2022-05-12] MEDS: INSULIN -REGULAR HUMAN 50 UNIT/0.5 ML ML SQ SCH ×4 (07:30→20:01)
[2022-05-12] MEDS: HEPARIN 5000 UNIT/ML 1 ML VIAL SQ SCH (09:59)
[2022-05-12] MEDS: HYDROCORTISONE SUC 100 MG INJ IV SCH ×2 (09:59→20:07)
[2022-05-12 10:18] LABS: Absolute Lymphocytes (CBC) 1.2 K/uL (0.7-4.9); Hematocrit 30.6 % (39.6-49.0); Lymphocytes % 10.5 % (15.3-44.8); MCV 95.2 fL (80-100); MPV 8.2 fL (7.6-11.3); RBC Red Blood Cell Count 3.21 M/uL (4.33-5.43)
[2022-05-12 11:08] LABS: Anisocytosis 1+; Blood Morphology Comment NOTED (NOT SEEN); Platelet Estimate ADEQ; White Blood Cell Scan OK (OK)
[2022-05-12 11:09] LABS: Albumin 3.3 g/dL (3.4-5.0); Basophilic Stippling 1+; Bilirubin Total 0.8 mg/dL (0.2-1.0); Magnesium 2.4 mg/dL (1.6-2.4); Poikilocytosis 1+; Potassium 4.6 mmol/L (3.5-5.1); Protein, Total 6.6 g/dL (6.4-8.2)
[2022-05-12 11:21] LABS: Thyroid Stimulating Hormone 72.7 uIU/mL (0.358-3.740)
--- NOTE | 2022-05-12 12:04 | P.CNS ---
Date of Consult: 05/12/22 Reason for Consult: Respiratory failure Chief Complaint: Hyperkalemia, pulmonary edema History of Present Illness: Patient is 56 years of age was recently admitted and undergone a tracheostomy was sent to [facility] end-stage renal disease severe hypothyroidism possible underlying obstructive sleep apnea including metabolic syndrome came into the emergency room with hyperkalemia stable volume overload he is currently on a BiPAP Iranian-speaking only currently stable Mated with hypoxic hypercapnic respiratory failure which is presumably his baseline patient's TSH is very elevated presumably he is hypothyroid again Allergies No Known Allergies Allergy (Verified 06/16/20 13:22) Home Medications: Albuterol Sulfate [Proair Hfa] 2 puff IH Q4HP PRN 06/25/20 Ergocalciferol (Vitamin D2) [Vitamin D2] 50,000 unit PO SEECOM 06/25/20 Fluticasone [Flonase 50MCG Nasal [place]*] 1 puff IH DAILY 06/25/20 Hydrocodone/Acetaminophen [Hydrocodone-Acetamin 10-325 mg] 1 tab PO Q6HP PRN 06/25/20 Levothyroxine [Synthroid*] 1 tab PO [id number] 06/25/20 Sevelamer Carbonate 1 tab PO TIDWM 06/25/20 Azithromycin Tab [Zithromax*] 250 mg PO DAILY #5 tab 03/19/22 Cefdinir [Cefdinir*] 300 mg PO BID #14 cap 03/19/22 Guaifenesin [Mucinex] 600 mg PO Q12H PRN #30 tab 03/19/22 predniSONE [Deltasone] 20 mg PO BID #11 tab 03/19/22 Fluticasone/Salmeterol [Advair 250-50 Diskus] 1 each IH BID 30 Days #60 aero 03/20/22 - Past Medical/Surgical History Diabetic: Yes -: hypertension -: hypothyroid -: TYPE 2 DIABETES -: Dyslipidemia -: ESRDMWF -: Hypoxic hypercapnic respiratory failure -: Trach with reversal Psychosocial/ Personal History: Unable to obtain - Family History Sister Medical History: Diabetes - Social History Smoking Status: Unknown if ever smoked Alcohol use: No CD- Drugs: No Caffeine use: Yes Place of Residence: Home Review of Systems is unable to be obtained Physical Examination Temp Pulse Resp BP Pulse Ox 98.1 F 71 18 157/74 H 91 05/12/22 09:09 05/12/22 09:09 05/12/22 09:09 05/12/22 09:09 05/12/22 09:09 General: Unresponsive Respiratory: Clear to auscultation bilaterally, Diminished Cardiovascular: No edema, Regular rate/rhythm, Normal S1 S2 Gastrointestinal: Normal bowel sounds, Soft and benign, Non-distended - Problems (1) Chronic respiratory failure with hypoxia and hypercapnia Current Visit: Yes Status: Acute Plan: Patient is 56 years of age admitted with hypoxic hypercarbic respiratory failure is a second admission patient previously had a trach that has now been removed he had gone to [facility] very hypothyroid start on IV thyroxine patient is currently on BiPAP patient has some interstitial change patient has also cor pulmonale noticed on last admission patient also has apical 9 mm SPN he will be difficult to exclude DVT pulmonary embolism recommended venous Dopplers stable CT pulmonary angiogram start on low-dose Eliquis for now
--- NOTE | 2022-05-12 12:14 | RAD REPORT ---
EXAM DESCRIPTION: RAD - Chest Single View - 05/11/2022 1:08 am CLINICAL HISTORY: 56 years, Male, DYSPNEA COMPARISON: 03/21/2022 FINDINGS: Single view of the chest was obtained portable. Prior films were compared. The lung volume is decreased. External EKG leads within the [id number]-wp-eevk limits diagnosis. The heart is prominent. The thoracic aorta demonstrate intimal calcification. Mild increased interstitial pulmonary markings and perihilar regions could correspond to interstitial pulmonary edema/or fluid overload. Questionabl e minimal blunting right lateral CP angle could correspond to trace of right pleural effusion. The rest of the soft tissue and bony structures demonstrate to be unremarkable. IMPRESSION: Cardiomegaly. Mild increased interstitial pulmonary markings and perihilar regions could correspond to interstitial pulmonary edema/or fluid overload. Electronically signed by: Amren Damon MD 05/11/2022 1:22 AM DREDGE PIPEMAN Due to temporary technical issues with the PACS/Fluency reporting system, reports are being signed by the in house radiologists without review as a courtesy to insure prompt reporting. The interpreting radiologist is fully responsible for the content of the report.
[2022-05-12 12:36] LABS: Blood Gas Oxyhemoglobin 91.9 % (94-97); Blood O2 Saturation 94.3 % (92-98.5)
--- NOTE | 2022-05-12 12:57 | RAD REPORT ---
EXAM DESCRIPTION: RAD - Chest Single View - 05/12/2022 12:48 pm CLINICAL HISTORY: fluid overload COMPARISON: Portable 05/11/2022 TECHNIQUE: AP portable chest image was obtained 05/12/2022 12:48 pm . FINDINGS: Lung volumes are fractionally improved from the prior day imaging. Interstitial pattern is also fractionally improved. Vasculature remains prominent. Cardiomegaly has improved but not fully r esolved. Trachea remains in the midline. No enlarging pleural effusion. No pneumothorax. No acute bony abnormality seen. No acute aortic findings suspected. IMPRESSION: Partial resolution of the CHF/volume overload pattern seen on prior imaging.
--- NOTE | 2022-05-12 13:24 | RAD REPORT ---
EXAM DESCRIPTION: CT - Chest Angio - 05/12/2022 12:39 pm CLINICAL HISTORY: Rule out pulmonary embolus patient is on dialysis, chest pain, shortness of breat h COMPARISON: Thorax W/ Con dated 03/20/2022; Chest Single View dated 05/12/2022; Chest Single View alfredito ed 05/11/2022 TECHNIQUE: Dynamically enhanced 3 mm thick images of the chest were obtained during administration o f approximately 150mL Isovue 370 IV contrast. Coronal and oblique MIP reconstruction images were gene rated and reviewed. Exam utilizes a protocol to evaluate the pulmonary arterial tree. All CT scans are performed using dose optimization technique as appropriate and may include automated exposure control or mA/KV adjustment according to patient size. FINDINGS: No pulmonary emboli are identified. The aorta as imaged shows no acute or suspicious finding. No pericardial thickening or effusion. Small bilateral pleural effusions are present. There is posterior lung base atelectasis. Interstitial markings are prominent. There are patchy alveolar opacities. No pneumothorax is seen. No pleural bas ed mass. No mediastinal or hilar suspicious masses. No chest wall masses or abnormal axillary lymphadenopathy. IMPRESSION: No pulmonary emboli identified. CHF/ volume overload findings as detailed.
[2022-05-12] MEDS: THIAMINE 200 MG/2 ML INJ IVP SCH ×2 (13:27→20:07)
[2022-05-12] MEDS: APIXABAN 5 MG TABLET PO SCH ×2 (13:27→20:08)
--- NOTE | 2022-05-12 13:31 | RAD REPORT ---
EXAM DESCRIPTION: US - Extrem Venous W Compress Sami - 05/12/2022 1:23 pm CLINICAL HISTORY: Rule out DVT, leg pain and swelling COMPARISON: None. TECHNIQUE: Real-time sonographic evaluation of the bilateral lower extremity common femoral, superfi cial femoral, popliteal and posterior tibial veins was performed. FINDINGS: Normal compressibility, flow augmentation, phasic flow and spontaneous flow are identified in the left and right lower extremity common femoral, superficial femoral, popliteal and posterior t ibial veins. No intraluminal filling defects seen. IMPRESSION: No DVT in either lower extremity.
--- NOTE | 2022-05-12 14:28 | PN ---
Date of Progress Note: 05/12/2022 Subjective: The patient was admitted with over volume, status post dialysis yesterday. The patient feeling better, but still has shortness of breath requiring oxygen. Physical Examination: Vital Signs: Blood pressure 157/74, pulse of 71, afebrile. Chest: Crackles bilateral. Heart: S1, S2. Systolic murmur. Tracheostomy. Abdomen: Soft, nontender. Extremity: Trace edema. Neurologic: Alert. No focality. Laboratory Data: Hemoglobin 9.7. Sodium 135, potassium 4, bicarb 27, BUN 67, creatinine 8.6, calcium 8.1. Chest x-ray, cardiomegaly with congestion. Current Medications: The patient on include; 1. Albuterol. 2. Levothyroxine. Assessment And Plan: 1. End-stage renal disease, over volume. I am going to do another dialysis today just sequential of 2 hours to establish better volume control. 2. Over volume. As I mentioned, the patient received 2 hours of dialysis today to establish better volume control and we will follow up. 3. Tracheostomy. We will consult Pulmonary and ENT. 4. Respiratory failure secondary to over volume/obstructive sleep apnea. We will repeat sequential today to establish better volume control and I am going to follow up with ENT. 5. Anemia of chronic kidney disease. Resume Retacrit. 6. Hyperkalemia, status post dialysis, resolved. 7. Hyponatremia. Will be corrected with dialysis. Time spent examining the patient toir-ec-cins reviewing data lab and radiology discussing the case with the patient placing order discussing the case with the steam fitter supervisor maintenance including nursing discussing the case with the hospitalist more than 35-minute JESUS Voice ID: [id number] Report ID: [id number] EFREN
[2022-05-13] MEDS ORDERED: LEVOTHYROXINE SOD 0.1 MG TAB PO SCH (06:30)
[2022-05-13 06:49] LABS: Absolute Lymphocytes (CBC) 1.3 K/uL (0.7-4.9); Hematocrit 25.6 % (39.6-49.0); Lymphocytes % 15.1 % (15.3-44.8); MCV 95.3 fL (80-100); MPV 7.8 fL (7.6-11.3); RBC Red Blood Cell Count 2.69 M/uL (4.33-5.43)
--- NOTE | 2022-05-13 06:58 | ECHO ---
HEIGHT: 5 ft 9 in WEIGHT: 200 lb 0 oz DATE OF STUDY: 05/12/[address]: Justice Gonzales MD 2-DIMENSIONAL: YES M.MODE: YES DOPPLER: YES COLOR FLOW: YES TDS: NO PORTABLE: YES DEFINITY: NO BUBBLE STUDY: NO DIAGNOSIS: RESPIRATORY FAILURE, HISTORY OF PULMONARY HYPERTENSION CARDIAC HISTORY: CATHERIZATION: NO SURGERY: NO PROSTHETIC VALVE: NO PACEMAKER: NO MEASUREMENTS (cm) DIASTOLIC (NORMALS) SYSTOLIC (NORMALS) IVSd 1.1 (0.6-1.2) LA Diam 3.7 (1.9-4.0) LVEF 63% LVIDd 3.9 (3.5-5.7) LVIDs 2.6 (2.0-3.5) %FS 34% LVPWd 1.1 (0.6-1.2) Ao Diam 2.7 (2.0-3.7) 2 DIMENSIONAL ASSESSMENT: RIGHT ATRIUM: NORMAL LEFT ATRIUM: NORMAL RIGHT VENTRICLE: NORMAL LEFT VENTRICLE: NORMAL TRICUSPID VALVE: MILD TR MITRAL VALVE: MILD MR PULMONIC VALVE: NORMAL AORTIC VALVE: NORMAL PERICARDIAL EFFUSION: NONE AORTIC ROOT: NORMAL LEFT VENTRICULAR WALL MOTION: NORMAL. DOPPLER/COLOR FLOW: MILD MITRAL AND TRICUSPID REGURGITATION. COMMENTS: 1. NORMAL LEFT VENTRICULAR EJECTION FRACTION 55-60%. 2. NORMAL WALL MOTION. 3. MILD MITRAL REGURGITATION. 4. MILD TRICUSPID REGURGITATION. 5. SEVERE PULMONARY HYPERTENSION WITH RIGHT VENTRICULAR SYSTOLIC PRESSURE OF >60 mmHg. 6. NORMAL DIASTOLIC FUNCTION. TECHNOLOGIST: Melody GREGORIO
[2022-05-13 07:11] LABS: Potassium 4.3 mmol/L (3.5-5.1)
[2022-05-13] MEDS: INSULIN -REGULAR HUMAN 50 UNIT/0.5 ML ML SQ SCH ×4 (07:30→20:30)
--- NOTE | 2022-05-13 09:09 | P.PN ---
Date of Service: 05/12/22 Subjective Patient is clinically doing much better. Symptoms are improving. Patient much more awake and alert. Follows commands and interacting much more appropriately today than he was yesterday. Spoke to nephrology and plan to do ENT consultation along with CT. We will get CT of the neck and at that point if there is any significant abnormalities we will consult ENT. Patient has been followed by Dr. Salas in the past. I did contact Dr. Reich regarding patient's difficulties while in the hospital. Physical Examination - Vital Signs Reviewed - Physical Exam General: Awake alert oriented x4 and following commands Respiratory: Breath sounds clear with some upper airway noise Cardiovascular: Regular rate/rhythm, Normal S1 S2, Gastrointestinal: Soft and benign, Non-distended, No tenderness, No rebound, No guarding Neurological: No focal deficits Assessment And Plan - Assessment 1. Acute Hypercapnic Respiratory Failure with metabolic acidosis 2. Severe Pulmonary Hypertension 3. End-Stage Renal Disease 4. Hyperkalemia 5. Right Pulmonary Nodule (9 mm) 6. Type II Diabetes Mellitus 7. Hypothyroidism - Plan -BIPAP; weaned off -IV steroids; changed to orals -Continue with hemodialysis per nephrology -Pulmonary & Nephrology consult -Continue with Synthroid -CT of the neck -ENT input prior to discharge sign -OOBed and ambulate with physical therapy
--- NOTE | 2022-05-13 09:10 | P.PN ---
Date of Service: 05/13/22 Subjective Physical Examination - Vital Signs Reviewed - Physical Exam General: Awake alert oriented x4 and following commands Respiratory: Breath sounds clear with some upper airway noise Cardiovascular: Regular rate/rhythm, Normal S1 S2, Gastrointestinal: Soft and benign, Non-distended, No tenderness, No rebound, No guarding Neurological: No focal deficits Assessment And Plan - Assessment 1. Acute Hypercapnic Respiratory Failure with metabolic acidosis 2. Severe Pulmonary Hypertension 3. End-Stage Renal Disease 4. Hyperkalemia 5. Right Pulmonary Nodule (9 mm) 6. Type II Diabetes Mellitus 7. Hypothyroidism - Plan -I will set up for outpatient invasive ventilator and arrange for home oxygen -IV steroids; changed to orals -Continue with hemodialysis per nephrology -Pulmonary & Nephrology consult -Continue with Synthroid -CT of the neck pending -ENT CONSULT -OOBed and ambulate with physical therapy
[2022-05-13] MEDS: THIAMINE 200 MG/2 ML INJ IVP SCH (09:16)
[2022-05-13] MEDS: APIXABAN 5 MG TABLET PO SCH (09:17)
[2022-05-13] MEDS: HYDROCORTISONE SUC 100 MG INJ IV SCH (09:17)
--- NOTE | 2022-05-13 11:52 | PN ---
Date of Progress Note: 05/13/2022 Subjective: The patient was admitted with over volume. The patient had been dialyzed, had extra bea atment yesterday with sequential. The patient tolerated very well. We managed to remove 3 L. The p atient is still complaining from shortness of breath. Physical Examination: Vital Signs: When I saw the patient; blood pressure 146/69, pulse of 67, afebrile. Chest: Crackles bilateral tracheostomy. Heart: S1, S2. Systolic murmur. Abdomen: Soft, nontender. Extremity: No edema. Neuro: Alert. No focality. Laboratory Data: Hemoglobin 8.7. Sodium 132, potassium 4.3, bicarb 25, BUN 88, creatinine 10.9, benjy cium 7.5. Current Medications: The patient on include; 1.Epogen. 2.Hydrocortisone. 3.Insulin. 4.Levothyroxine. 5.Thiamin. Assessment And Plan: 1.End-stage renal disease, over volume, status post extra treatment yesterday. We will do full lina tment today and we will monitor. 2.Hypertension, not controlled. We will utilize blood pressure for more ultrafiltration. 3.Over volume. The patient is going to be challenged again today. 4.Anemia of chronic kidney disease. Resume SUMIT. 5.Hyponatremia, dilutional. Will be corrected with dialysis. 6.Tracheostomy. Follow up with Pulmonary and ENT. STEPH/CASSIE Voice ID: [id number] Report ID: [id number]
--- NOTE | 2022-05-13 12:28 | P.PN ---
Subjective Date of Service: 05/13/22 Chief Complaint: Hypoxic hypercapnic respiratory failure Subjective: Improving (Patient is improving doing well he is more alert responsive) Review of Systems General: Weakness Respiratory: Shortness of Breath Physical Examination - Vital Signs Temperature: 98.6 F Blood Pressure: 146/69 Pulse: 67 Respirations: 16 Pulse Ox (%): 96 - Physical Exam General: Alert, Oriented x2, Cooperative Respiratory: Clear to auscultation bilaterally, Diminished Cardiovascular: Regular rate/rhythm, Normal S1 S2, Edema Assessment And Plan - Current Problems (Diagnosis) (1) Chronic respiratory failure with hypoxia and hypercapnia Current Visit: Yes Status: Acute Plan: Patient has chronic hypoxic hypercapnic respiratory failure recurrent hospital admissions will benefit from a noninvasive ventilator patient outpatient sleep study he is also hypothyroid can DC steroid is improved BG's went sat to 90% off BiPAP White count is now normal can inform me that he was compliant with his Synthroid patient was sent home on Synthroid 75 mcg has been increased to 100 mcg the dose can being adjusted few weeks noninvasive ventilator ordered
--- NOTE | 2022-05-13 12:48 | RAD REPORT ---
EXAM DESCRIPTION: CT - Soft Tissue Neck W/Contr CLINICAL HISTORY: supraglottic swelling Neck pain and swelling. COMPARISON: Soft Tissue Neck W/Contr dated 03/20/2022; Head C Spine Mpr Wo Con dated 11/23/2020; Soft Tissue Neck Wo Contr dated 06/16/[address] scans are performed using dose optimization technique as appropriate and may includ e automated exposure control or mA/KV adjustment according to patient size. FINDINGS: Nasopharyngeal tissues are normal in appearance. Fossa Rosenmller are normal. Parapharyngeal fat triangles are symmetric. Tongue base structures are normal. There is incomplete distention of the supraglottic airway making full assessment quite limited. Under aerated piriform sinuses. The vocal cords are normal in appearance. Salivary glands are normal in appearance. Mild bilateral pulmonary opacities are seen in the upper lungs. Left temporal fossa arachnoid cyst veliz spected. IMPRESSION: Under distended supraglottis is seen with under aerated piriform sinuses bilaterally. No discrete mass evident. If there is persistent clinical concern, direct visualization would be sugges kailey.
[2022-05-13] MEDS: EPOETIN ALFA 10,000 UNIT/ML VIAL IV SCH (15:45)
[2022-05-13 18:31] LABS: Arterial Blood Carboxyhemoglob 1.4 % (0-1.5); Blood Gas Oxyhemoglobin 81.6 % (94-97); Blood O2 Saturation 83.9 % (92-98.5)
[2022-05-13] MEDS: THIAMINE HCL 100 MG TABLET PO SCH (20:30)
[2022-05-13] MEDS: HEPARIN 5000 UNIT/ML 1 ML VIAL SQ SCH (20:30)
[2022-05-14 04:32] VITALS: BMI 29.5
[2022-05-14] MEDS: HYDRALAZINE HCL 20 MG/ML VIAL IV PRN (05:47)
[2022-05-14] MEDS ORDERED: LEVOTHYROXINE SOD 0.1 MG TAB PO SCH ×2 (06:30)
[2022-05-14] MEDS: INSULIN -REGULAR HUMAN 50 UNIT/0.5 ML ML SQ SCH ×4 (07:30→21:00)
[2022-05-14] MEDS: THIAMINE HCL 100 MG TABLET PO SCH ×2 (08:31→21:17)
[2022-05-14] MEDS: HEPARIN 5000 UNIT/ML 1 ML VIAL SQ SCH ×2 (08:31→21:17)
--- NOTE | 2022-05-14 08:53 | P.PN ---
Date of Service: 05/14/22 ENT Consultation Please see dictated H&P. CT scan reviewed. Impression: 1. Supraglottic edema-- suspect allergy-related, complicated by obesity and redundant neck tissue. Angioedema is also a possibility but airway is currently patent and in no distress. 2. Hypothyroidism-- On Synthroid. 3. Chronic respiratory failure with hypoxia and hypercapnia-- improved since admission. 4. Per patient, "Spitting up blood"-- no evidence of hemoptysis on exam. Plan: 1. If able, recommend H1/H2 christiana antihistamines then convert to maintenance antihistamine such as cetirizine 10mg daily. Will defer to IM and pulmonology. If decide to start, can do famotidine and cetirizine-- watch for oversedation. 2. If able, recommend IV solumedrol and then convert to outpatient tapered dose of prednisone. Will defer to IM and pulmonology for dosing, etc. 3. Recommend fluticasone nasal spray BID. 4. Continue Synthroid. We can monitor his TSH outpatient, if needed and adjust dosing. 5. D/w Dr. Bess with regards of spitting up blood. 6. Recommend outpatient followup to reassess allergies and re-scope him. Thank you Dr. Bess, for this most interesting consultation.
[2022-05-14] MEDS ORDERED: METHYLPREDNISOLONE 125 MG INJ IV ONE (10:26)
[2022-05-14] MEDS ORDERED: CETIRIZINE HCL 5 MG TABLET PO ONE (10:27)
--- NOTE | 2022-05-14 16:49 | RAD REPORT ---
EXAM DESCRIPTION: RAD - Chest Single View - 05/14/2022 4:24 pm CLINICAL HISTORY: COPD COMPARISON: Chest Single View dated 05/12/2022; Chest Single View dated 05/11/2022; Chest Single View d ated 04/04/2022; Chest Single View dated 04/01/2022 FINDINGS: Lines: None. Lungs: Coarse interstitium is similar to prior radiographs. Pleural: No significant pleural effusions or pneumothorax. Cardiac: The heart size is within normal limits. Mediastinum: Within normal limits. Bones: No acute fractures. Other: None IMPRESSION: Similar coarsening of the pulmonary interstitium. This could reflect edema or atypical i nfection . It may also be chronic.
[2022-05-14] MEDS ORDERED: GUAIFENESIN/CODEINE 5ML UCUP PO ONE (18:00)
--- NOTE | 2022-05-14 18:40 | PN ---
Date of Progress Note: 05/14/2022 Subjective: The patient was admitted to the hospital with shortness of breath, over volume. The pat ient has been dialyzed, currently normal volume. The patient completely asymptomatic except today co mplaining from cough with some hemoptysis. Physical Examination: Vital Signs: Blood pressure 172/80, pulse of 60, afebrile. Chest: Clear to auscultation. Heart: S1, S2. Regular. Abdomen: Soft, nontender. Extremity: No edema. Neurological: Alert. No focality. Laboratory Data: Hemoglobin 8.7. Sodium 132, potassium 4.3, bicarb 25, BUN 88, creatinine 10.9, benjy cium 7.5. Assessment And Plan: 1.End-stage renal disease, currently normal volume. Resume dialysis Wednesday, Wednesday, Wednesday and w e will follow up the patient. 2.Cough. I am going to go ahead and repeat chest x-ray. We will follow up with primary. 3.Hypertension, not controlled. I will start the patient on lisinopril for better blood pressure an d we will follow up. 4.Obstructive sleep apnea, status post tracheostomy. We will follow up with Pulmonary. 5.Diabetes as by primary. 6.Anemia of chronic kidney disease. Continue SUMIT. STEPH/CASSIE Voice ID: [id number] Report ID: [id number]
[2022-05-15 04:12] VITALS: TEMP 97.5
[2022-05-15 04:13] VITALS: O2SAT 93
[2022-05-15] MEDS: HYDRALAZINE HCL 20 MG/ML VIAL IV PRN (04:53)
[2022-05-15] MEDS ORDERED: LEVOTHYROXINE SOD 0.1 MG TAB PO SCH (06:30)
[2022-05-15] MEDS: INSULIN -REGULAR HUMAN 50 UNIT/0.5 ML ML SQ SCH ×3 (07:30→15:35)
--- NOTE | 2022-05-15 07:53 | P.PN ---
Date of Service: 05/14/22 Subjective Appreciate input for ENT. No eye abnormalities most likely allergies. Antihistamine and steroids and double Flonase. Outpatient ENT follow-up. Anticipate discharge home in the morning. Physical Examination - Vital Signs Reviewed - Physical Exam General: Awake alert oriented x4 and following commands Respiratory: Breath sounds clear with some upper airway noise Cardiovascular: Regular rate/rhythm, Normal S1 S2, Gastrointestinal: Soft and benign, Non-distended, No tenderness, No rebound, No guarding Neurological: No focal deficits Assessment And Plan - Assessment 1. Acute Hypercapnic Respiratory Failure with metabolic acidosis 2. Severe Pulmonary Hypertension 3. End-Stage Renal Disease 4. Hyperkalemia 5. Right Pulmonary Nodule (9 mm) 6. Type II Diabetes Mellitus 7. Hypothyroidism - Plan -I will set up for outpatient invasive ventilator and arrange for home oxygen -IV steroids; changed to orals -Continue with hemodialysis per nephrology -Pulmonary & Nephrology consult -Continue with Synthroid -CT of the neck pending -ENT CONSULT Appreciated -OOBed and ambulate with physical therapy
[2022-05-15] MEDS: HEPARIN 5000 UNIT/ML 1 ML VIAL SQ SCH (08:02)
[2022-05-15] MEDS: THIAMINE HCL 100 MG TABLET PO SCH (08:02)
[2022-05-15 08:05] VITALS: BP 181/81
[2022-05-15] MEDS ORDERED: lisinopriL 20 MG TAB PO SCH (09:00)
[2022-05-15] MEDS: EPOETIN ALFA 10,000 UNIT/ML VIAL IV SCH (14:00)
--- NOTE | 2022-05-15 14:51 | P.PN ---
Subjective Date of Service: 05/15/22 Chief Complaint: Hypoxic hypercapnic respiratory failure Subjective: Other (Received HD today) Physical Examination - Vital Signs Temperature: 97.5 F Blood Pressure: 181/81 Pulse: 76 Respirations: 18 Pulse Ox (%): 95 - Physical Exam General: Other (chronically ill appearing) HEENT: Atraumatic, Normocephalic Neck: Supple, JVD not distended Respiratory: Other (symmetric chest expansion) Cardiovascular: No rubs, No murmurs Gastrointestinal: Soft and benign, No guarding Musculoskeletal: No clubbing Integumentary: No warmth Neurological: Normal speech, Normal tone Urinary: Other (no bladder distention) External genitalia: Deferred Rectal: Deferred Assessment And Plan - Plan 1. ESRD. HD received today per MW sked. 2. Cough. Per primary team. 3. Hypertension. BP above goal. BP meds adjusted. 4. Obstructive sleep apnea, status post tracheostomy. We will follow up with Pulmonary. 5. DM2. Mngt per primary tea. 6. Anemia of chronic kidney disease. Continue SUMIT. 7. Renal osteodystrophy. Monitor Ca & Phos.
--- NOTE | 2022-05-15 15:12 | CON ---
Date of Consultation: 05/14/2022 Chief Complaint: Globus sensation. History Of Present Illness: The patient is a 56-year-old male with a history of severe hypothyroidis m, obesity, supraglottic edema, status post tracheostomy tube placement, which was recently decannula kailey, who presented recently to the emergency room and admitted for hypoxic hypercapnic respiratory fa ilure. Dr. Bess ordered a CT scan, which revealed supraglottic edema as was seen at the prior hospit al visit and thus I was consulted for evaluation and management. Upon arrival to bedside, the patien t is in no acute distress whatsoever, and he states globus sensation is improved since admission. He has coughed up a little blood with mucus and reports [id number] postnasal drainage with ayaan r mucus resulting in coughing and throat clearing. He does report a history of chronic allergic rhin itis and respiratory difficulty, which has required albuterol or ProAir inhalers in the past. Curren tldave, he denies odynophagia or dysphagia. He states that since admission, his condition has improved. He also states that he has been taking Synthroid as instructed and his dosage was recently increase d to 100 mcg daily. He has no other ENT complaints today. Past Medical History: Hypertension, hypothyroidism, type 2 diabetes, obesity, dyslipidemia, end-stag e renal disease. Past Surgical History: Tracheostomy with subsequent decannulation, which was recent. Home Medications: Albuterol sulfate, ergocalciferol, fluticasone nasal spray, hydrocodone/acetaminop hen, Synthroid, sevelamer carbonate, azithromycin tablet, cefdinir, guaifenesin, prednisone, fluticas one/salmeterol inhaler. Allergies: NO KNOWN DRUG ALLERGIES. Social History: Denies alcohol, tobacco, illicit drugs. Review of Systems: General: Denies difficulty breathing, fever, or distress. Head: Denies headache or trauma. Eyes: Denies drainage, blurred/double vision. Ears: Denies otalgia, hearing loss, tinnitus, drainage, or recurrent ear infections. Nose: Positive for rhinorrhea, postnasal drip, and nasal obstruction. Throat: Positive for coughing with occasional blood, mucus is clear. Positive for globus sensation, but denies sore throat, odynophagia, dysphagia. Neck: Positive for globus sensation, but negative for neck mass or swelling. Physical Examination: Vital Signs: Stable. The patient is awake, alert, and oriented, in no apparent distress. He is aubree ented to person, place, and time. Head: Atraumatic, normocephalic. Ears: Bilateral external auditory canals patent. Tympanic membranes intact. Eyes: PERRLA/EOMI. Nose: Bilateral pale/blue/moran mucosa with inferior turbinate hypertrophy 3/4 and clear drainage. L eft nasal cavity worse than right nasal cavity. Throat: Midline uvula Hood palate III/IV. Neck: Supple with lots of redundant neck tissue. Prior anterior tracheostomy scar visualized. No e vidence of fistula. After obtaining verbal consent, the patient was placed into a sniffing position and I introduced a fl exible laryngoscope coated with lubricant into the right nasal cavity and it was advanced along the f maria d. Left nasal cavity was obstructed. The scope was advanced to the nasopharynx and then back to the larynx and hypopharynx. The supraglottic area was boggy with pale/blue/moran mucosa. The patient was able to phonate adequately and I was able to detect a patent airway with pearly white true vocal folds with no evidence of mass or lesion. The scope was carefully withdrawn to the base of tongue. The patient has a large base of tongue. The scope was completely withdrawn. The patient tolerated the procedure well. CT scan of the soft tissue neck was examined and this demonstrates supraglottic edema, which is moder ate, but patent trachea and airway is patent. No other abnormalities detected. Diagnoses: 1.Supraglottic edema - suspect allergy related and possible allergic angioedema. This is complicate d by obesity and redundant neck tissue. 2.Hypothyroidism - on Synthroid. 3.Chronic respiratory failure with hypoxia and hypercapnia - improved since admission. 4.The patient states he is spitting up blood, but exam is normal currently. No evidence of throat o r nasal bleeding. 5.Globus pharyngeus. Plan: 1.Discussed with Dr. Bess that he would benefit from an H1/H2 christiana, antihistamine, and convert to maintenance antihistamine such as cetirizine 10 mg daily. Will defer to Internal Medicine and Pulmo nology on appropriate dosing as we want to watch for oversedation. 2.Recommend IV steroids and then convert to outpatient tapered doses of prednisone and will again de sean to Internal Medicine, Pulmonology for dosing, etc. 3.The patient can increase fluticasone nasal spray to twice daily - two sprays each nostril twice da mirza. 4.Continue Synthroid daily; and if Dr. Bess desires, we can monitor his TSH outpatient and adjust do sing as needed. 5.Recommend outpatient followup to assess allergies and rescope him as well as offering allergy test ing as I highly suspect chronic allergic rhinitis. Approximately 80% of asthmatics have environmenta l inhalant allergens, which can result in his present exam findings today. Thank you Dr. Bess for this most interesting consultation. CIELO/CASSIE Voice ID: [id number] Report ID: [id number]
[2022-05-15] MEDS ORDERED: AMLODIPINE 5 MG TAB PO SCH (15:22)
[2022-05-15] MEDS ORDERED: lisinopriL 20 MG TAB PO ONE (15:24)
[2022-05-16] MEDS ORDERED: lisinopriL 20 MG TAB PO SCH (09:00)
== END 2022-05-15 16:24 | disposition home health service (06) | DRG 640 ==
LOC: ER 00:35 → ERHOLD 03:48 → 4TH 05-12 08:25
PROVIDERS: ADMIT Hospitalist; ATTEND Hospitalist
PROC: 5A09557 Assistance with Respiratory Ventilation, Greater than 96 Consecutive Hours, Continuous Positive Airway Pressure (ICD-10-PCS; 2022-05-11)
PROC: 5A1D70Z Performance of Urinary Filtration, Intermittent, Less than 6 Hours Per Day (ICD-10-PCS; principal; 2022-05-12)
DX: E87.5 Hyperkalemia (principal); J81.0 Acute pulmonary edema; J96.21 Acute and chronic respiratory failure with hypoxia; J96.22 Acute and chronic respiratory failure with hypercapnia; N18.6 End stage renal disease; I12.0 Hypertensive chronic kidney disease with stage 5 chronic kidney disease or end stage renal disease; R04.2 Hemoptysis; E87.1 Hypo-osmolality and hyponatremia; E87.29 Other acidosis; E11.22 Type 2 diabetes mellitus with diabetic chronic kidney disease; D63.1 Anemia in chronic kidney disease; E03.9 Hypothyroidism, unspecified; E78.5 Hyperlipidemia, unspecified; N25.0 Renal osteodystrophy; G47.33 Obstructive sleep apnea (adult) (pediatric); I27.20 Pulmonary hypertension, unspecified; E66.9 Obesity, unspecified; T78.3XXA Angioneurotic edema, initial encounter; R91.8 Other nonspecific abnormal finding of lung field; Z99.2 Dependence on renal dialysis; Z93.0 Tracheostomy status; Z68.30 Body mass index [BMI] 30.0-30.9, adult; Z79.52 Long term (current) use of systemic steroids; Z79.899 Other long term (current) drug therapy; Z79.890 Hormone replacement therapy; Z20.822 Contact with and (suspected) exposure to COVID-19
CPT/HCPCS: 36415; 70491; 71045; 71275; 80048; 80053; 82533; 82805; 82947; 83735; 84439; 84443; 84484; 85025; 86706; 87340; 87811; 90935; 93005; 93306; 93970; 94660; 94760; 96365; 96375; 97116; 97161; 99285; J0360; J0610; J1644; J1720; J1815; J1940; J2150; J2250; J2930; J3411; J7613; P9047; Q9967

== ENCOUNTER 2022-05-31 21:29 | Inpatient (IN) | payer OTHER ==
--- OUTSIDE RECORDS SUMMARY | 2022-05-31 21:54 | XMS REPORT | Continuity of Care Document ---
:1965 Author Organization [facility] t Address [address] [place] [address] Care Team Providers Name Role Phone Asked, No Pcp Primary Care Physician Unavailable [id number] Attending Clinician Unavailable IRMA NICHOLSON Attending Clinician Unavailable SYLVAIN OLIVARES Attending Clinician Unavailable JOSELUIS FERNANDEZ Attending Clinician Unavailable Doctor Unassigned, [place] Attending Clinician Unavailable JACINTO SIMPSON Attending Clinician Unavailable Stephani Mcginnis Anavella Attending Clinician Unabibi Fall RN, Mami Attending Clinician Unavailable Joseluis Fernandez MD Attending Clinician Gen Ambrocio Attending Clinician Unavailable Radiology Attending Clinician Unavailable RADIOLOGY Attending Clinician Unavailable Shantel Ko RN Attending Clinician Unavailable SAM RAMIRES Attending Clinician Unavailable Sam Ramires MD Attending Clinician DEAN GARCIA Attending Clinician Unavailable Dean Garcia MD Attending Clinician MARCUS CABALLERO Attending Clinician Unavailable HUNTER GIPSON Attending Clinician Unavailable [id number] Admitting Clinician Unavailable IRMA NICHOLSON Admitting Clinician Unavailable SYLVAIN OLIVARES Admitting Clinician Unavailable GERRI VINCENT Admitting Clinician Unavailable Leo Mcginnis Anav Admitting Clinician Unavailable Payers Payer Name Policy Type Policy Number Effective Date Expiration Date S tammie MEDICARE A B [id number] 2018 00:00:00 [facility] REVIEW [id number] 2019 00:00:00 MEDICAID OF [place] [id number] 2019 00:00:00 [facility] [id number] 2021 DUAL COMPLETE HMO 00:00:00 [place]ICAID [place] [id number] 2019 00:00:00 [facility] [id number] MEDICARE PART A \T\ [id number] 2018 B 00:00:00 Problems Condition Condition Condition [...] Essential Disease Active [facility] hypertensi - [facility] on on 00:00: Medical 00 [place] Type 2 Type [address] [facility] diabetes 05[facility]23 [facility] mellitus mellitus 00:00: Medica l with with 00 Center chronic chronic kidney kidney disease on disease on chronic chronic dialysis, dialysis, without without long-term long-term current current use of use of insulin insulin Dizziness Dizziness Disease Active Uni vers 9-10 ity of 00:00: [place] [facility] Pre-syncop Pre-syncop Disease Active U nivers e e - ity of 00:00: [place] [address] Medical Branch Elevated Elevated Disease Active 2017-05 Unive rs troponin I troponin I 05-04 it y of level level 00:00: [place] [address] Medical Branch Elevated Elevated Disease Active 2017-05 Unive rs brain brain 05-04 ity of natriureti natriureti 00:00[place] c peptide c peptide 00 Medi benjy (BNP) (BNP) Branch level level Essential Essential Disease Active 2017-05 Uni vers hypertensi hypertensi - it y of on on 00:00: [place] [facility] Dyslipidem Dyslipidem Disease Active 2017-05 U nivers ia ia 05-04 ity of 00:00: [place] [address] Medical Branch Hypocalcem Hypocalcem Disease Active 2017-05 U nivers ia ia 05-03 ity of 00:00: [address] Branch Allergies, Adverse Reactions, Alerts Allergy Allergy Status [...] Date Source Natural brother No Known Problem [facility] Natural father Alcohol abuse [facility] Natural mother No Known Problem [facility] Natural sister Diabetes [facility] Center Natural sister Kidney disease [facility] Natural sister No Known Problem [facility] Social History Social Habit Start Date Stop Date Quantity Comments Source History SDOH [facility] Alcohol Std Drinks Medica l Center History SDOH [facility] Alcohol Binge Medical [place] ter History SDOH [facility] Alcohol Comment Medical C enter History of tobacco Smoker [facility] use [facility] Center Exposure to 2021-11-22 2021-12-02 Not sure University SARS-CoV-2 (event) 00:00:00 14:04:00 [facility] Alcohol intake 2019-12-17 2019-12-[address] [facility] 00:00:00 00:00:00 non-drinker of Medical Ce nter alcohol (finding) History [facility] 2019-05-23 2019-05-[address] [facility] Alcohol Frequency 00:00:00 00:00:00 [facility] Cigarettes smoked 2019-04-20 2019-04-[address] [facility] current (pack per 00:00:00 00:00:00 [facility] Center day) - Reported Cigarette 2019-04-20 2019-04-[address] [facility] pack-years 00:00:00 00:00:00 [facility] Tobacco use and 2019-04-20 2019-04-[address] [facility] exposure 00:00:00 00:00:00 [facility] Center Sex Assigned At [address] [facility] 00:00:00 00:00:00 [facility] Center Smoking Status Start Date Stop Date Source Ex-smoker 2018-03-03 00:00:00 2018-03-03 00:00:00 [facility] Medications Ordered Filled Start Stop Current [...] Unknown 2-13 00:00: 00 levothyroxi 2021-0 Yes [id number] 224ug Take 2 Univers ne 112 mcg 8-23 tablets by ity of tablet 00:00: mouth [place] 00 every Medical morning. Branch levothyroxi 2021-0 Yes [id number] 224ug Take 2 Univers ne 112 mcg 8-23 tablets by ity of tablet 00:00: mouth [place] 00 every Medical morning. Branch INSTILL 1 2021-0 No DROP INTO 8-10 [...] 25 Unknown 8-10 00:00: 00 TAKE 1 2-0 No 80 TABLET AT 8-10 BEDTIME. 00:00: [...] No Unknown 8-08 00:00: 00 TAKE 1 2-0 No 2 [...] 0.25 % SOLN 00:00: 00 INSTILL 1 2021-0 No DROP IN 8-05 BOTH EYES 00:00: EVERY DAY 00 TAKE 1 2-0 No TABLET 8-05 EVERY 6 00:00: HOURS BY 00 ORAL ROUTE NEEDED FOR 7 DAYS. TIMOLOL 2022-0 No MALEATE 8-05 0.25 % SOLN 00:00: 00 INSTILL 1 2021-0 No DROP [...] 8-03 00:00: 00 Dose 2022-0 No Unknown 7- 00:00: 00 &lt 2022-0 No 25 7- 00:00: 00 TAKE 1 2022-0 No 2 TABLET 7-26 EVERY 6 00:00: HOURS BY 00 ORAL ROUTE NEEDED FOR 7 DAYS. Dose 2022-0 No Unknown 7- 00:00: 00 &lt 2022-0 No 25 7- 00:00: 00 TAKE 1 2022-0 No 2 TABLET 7- EVERY 6 00:00: HOURS BY 00 ORAL ROUTE NEEDED FOR 7 DAYS. Dose 2022-0 No Unknown 7- 00:00: 00 &lt 2022-0 No 25 7- 00:00: 00 TAKE 1 2022-0 No 2 TABLET 7- EVERY 6 00:00: HOURS BY 00 ORAL ROUTE NEEDED FOR 7 DAYS. Dose 2-0 No Unknown 7 00:00: 00 &lt 2022-0 No 25 7- 00:00: 00 TAKE 1 2022-0 No 2 TABLET 7- EVERY 6 00:00: HOURS BY 00 ORAL ROUTE NEEDED FOR 7 DAYS. Dose 2-0 No Unknown 7 00:00: 00 &lt 2022-0 No 25 7- 00:00: 00 TAKE 1 2-0 No 2 TABLET 7- EVERY 6 00:00: HOURS BY 00 ORAL ROUTE NEEDED FOR 7 DAYS. Dose 2-0 No Unknown 7 00:00: 00 &lt 2022-0 No 25 7- 00:00: 00 TAKE 1 2022-0 No 2 TABLET 7- EVERY 6 00:00: HOURS BY 00 ORAL ROUTE NEEDED FOR 7 DAYS. Dose 2022-0 No Unknown 7 00:00: 00 &lt 2022-0 No 25 7- 00:00: 00 TAKE 1 2-0 No 2 TABLET 7-26 EVERY 6 00:00: HOURS BY 00 ORAL ROUTE NEEDED FOR 7 DAYS. Dose 2022-0 No Unknown 7 00:00: 00 &lt 2022-0 No 25 7- 00:00: 00 TAKE 1 2-0 No 2 TABLET 7- EVERY 6 00:00: HOURS BY 00 ORAL ROUTE NEEDED FOR 7 DAYS. INSTILL 1 2-0 No DROP INTO 7-25 BOTH EYES 00:00: EVERY 00 MORNING &lt 2022-0 No 800 7-25 00:00: 00 Dose 2022-0 No 75 Unknown 7- 00:00: 00 TAKE 1 2-0 No 300 [...] 7-25 MOUTH EVERY 00:00: DAY 00 &lt 2-0 No 10 11-24 00:00: 00 INSTILL 1 [...] No 10 11-24 00:00: 00 INSTILL 1 2-0 No DROP INTO 7-25 BOTH EYES 00:00: EVERY 00 MORNING &lt 2022-0 No 800 7- 00:00: 00 Dose 2022-0 No 75 Unknown 11-24 00:00: 00 TAKE 1 2-0 No 300 CAPSULE BY 7-25 MOUTH EVERY 00:00: DAY 00 &lt 2022-0 No 10 11-24 00:00: 00 INSTILL 1 2022-0 No DROP [...] 7- 00:00: 00 &lt 2022-0 No 500 - 00:00: 00 Dose 2022-0 No 80 Unknown [...] EVERY DAY 00 &lt 2022-0 No 500 7 00:00: 00 Dose 2022-0 No 80 Unknown [...] 7 00:00: 00 &lt 2022-0 No 10 7 00:00: 00 &lt 2022-0 No 10 11-20 00:00: 00 &lt 2022-0 No 10 7- [...] 00 &lt 2022-0 No 6-21 00:00: 00 Rian 25 2-0 No 1mg mg tablet 4-07 00:00: 00 amlodipine 2022-0 No 1mg 10 mg 4-07 tablet 00:00: 00 atorvastati 2022-0 No 1mg n 80 mg 4-07 tablet 00:00: 00 Reshmaia 25 2-0 No 1mg mg tablet 4- 00:00: 00 amlodipine 2022-0 No 1mg 10 mg 4-07 tablet 00:00: 00 atorvastati 2022-0 No 1mg n 80 mg 4-07 tablet 00:00: 00 Rian 25 2-0 No 1mg mg tablet 4- 00:00: 00 amlodipine 2022-0 No 1mg 10 mg 4-07 tablet 00:00: 00 atorvastati 2022-0 No 1mg n 80 mg 4-07 tablet 00:00: 00 Simoneuvlavern 25 2-0 No 1mg mg tablet 4- 00:00: 00 amlodipine 2022-0 No 1mg 10 [...] Dose 2022-0 No Unknown 4-07 00:00: 00 Simoneuvia 25 2-0 No 1mg mg tablet 4-07 00:00: 00 amlodipine 2022-0 No 1mg 10 mg 4-07 tablet 00:00: 00 atorvastati 2022-0 No 1mg n 80 mg 4-07 tablet 00:00: 00 Simoneuvia 25 2022-0 No 1mg mg tablet 4-07 00:00: 00 amlodipine 2-0 No 1mg 10 mg 4-07 tablet 00:00: 00 atorvastati 2-0 No 1mg n 80 mg 4- tablet [...] [place] 00 every Medical morning. Branch levothyroxi 0 2021- No 1{tbl} Take 1 U nivers ne 200 mcg 3-03 08-23 tablet by ity of tablet 00:00: 00:00 mouth [place] 00 :00 every Medical morning. Branch Januvia 25 2021-0 No 1mg mg tablet 2-04 00:00: 00 Dose 2021-0 No Unknown 2-04 00:00: 00 Dose 2-0 No Unknown 2-04 00:00: 00 Januvia 25 2021-0 No 1mg mg tablet 2-04 00:00: 00 Dose 2021-0 No Unknown 2-04 00:00: 00 Dose 2-0 No Unknown 2-04 00:00: 00 Januvia 25 2021-0 No 1mg mg tablet 2-04 00:00: 00 Dose 2021-0 No Unknown 2-04 00:00: 00 Dose 2022-0 No Unknown 2-04 00:00: 00 Dose 2022-0 No Unknown 2-04 00:00: 00 Dose 2022-0 No Unknown 2-04 00:00: 00 Dose 2022-0 No Unknown 2-04 00:00: 00 Dose 2022-0 No Unknown 2-04 00:00: 00 Dose 2022-0 No Unknown 2-04 00:00: 00 Dose 2022-0 No Unknown 2-04 00:00: 00 Januvia 25 2022-0 No 1mg mg tablet 2-04 00:00: 00 Dose 2022-0 No Unknown 2-04 00:00: 00 Dose 2022-0 No Unknown 2-04 00:00: 00 Januvia 25 2022-0 No 1mg mg tablet 2-04 00:00: 00 Dose 2022-0 No Unknown 2-04 00:00: 00 Dose 2022-0 No Unknown 2-04 00:00: 00 Januvia 25 2-0 No 1mg mg tablet 2-04 00:00: 00 levothyroxi 2-0 No 1mcg ne 200 mcg 2-04 tablet 00:00: 00 levothyroxi 2-0 No 1mcg ne 25 mcg 2-04 tablet 00:00: 00 UNITHROID 2021-0 Yes 1{tbl} Take 1 Univ ers 25 mcg 2-04 tablet by ity of tablet 00:00: mouth [place] 00 every Medical morning. Branch UNITHROID 2021-0 2021- No 1{tbl} Take 1 Uni vers 25 mcg 2-04 08-23 tablet by ity of tablet 00:00: 00:00 mouth [place] 00 :00 every Medical morning. [place] lisinopriL 2021-0 Yes 5mg Take 5 mg Un capri 5 mg tablet 1-07 by mouth ity of 00:00: daily. [place] [facility] lisinopriL 2021-0 Yes 5mg Take 5 mg Un capri 5 mg tablet 1-07 by mouth ity of 00:00: daily. [place] [facility] lisinopriL 2021-0 Yes 5mg Take 5 mg Un capri 5 mg tablet 1-07 by mouth ity of 00:00: daily. [address] amlodipine 2020-05 No 1mg 10 mg 2-30 tablet 00:00: 00 amlodipine 2021-1 No 1mg 10 mg 2-30 tablet 00:00: 00 amlodipine 1-1 No 1mg 10 mg 2-30 tablet 00:00: 00 Dose 1-1 No Unknown 2-30 00:00: 00 Dose 1-1 No Unknown 2-30 00:00: 00 amlodipine 1-1 No 1mg 10 mg 2-30 tablet 00:00: 00 amlodipine 1-1 No 1mg 10 mg 2-30 tablet 00:00: [...] 10 mg 2-02 tablet 00:00: 00 Dose 1-1 No Unknown 2-02 00:00: 00 Dose 1-1 No Unknown 2-02 00:00: 00 Dose 1-1 No Unknown 2-02 00:00: 00 Dose 2020-1 [...] mg 1-09 capsule 00:00: 00 TAKE 1 1-1 No CAPSULE 3 1-09 TIMES DAILY 00:00: NEEDED. 00 TAKE 1 1-1 No CAPSULE 3 1-09 TIMES DAILY 00:00: NEEDED. 00 benzonatate 1-1 No 1mg 200 mg [...] lized 145 00:00: mg tablet 00 Dose 2021-0 No Unknown 6-07 00:00: 00 Dose 2021-0 No Unknown 6-07 00:00: 00 Dose 2021-0 No Unknown 6-07 00:00: 00 fenofibrate 2021-0 No 1mg nanocrystal 6-07 lized 145 00:00: mg tablet 00 Dose 1-0 No Unknown 6-07 00:00: 00 Dose 2021-0 No Unknown 6-07 00:00: 00 Dose 1-0 No Unknown 6-07 00:00: [...] mg/5 00:00: mL oral 00 syrup amlodipine 2021-0 No 1mg 10 mg 1-26 [...] 00:00: extended 00 release 24 hr fenofibrate 1 No 1mg nanocrystal 2-04 lized 145 00:00: [...] 40 mg 2-04 tablet 00:00: 00 glipizide 2019- No 1mg ER 5 mg 2-04 tablet, [...] 2-02 800 mg 00:00: tablet 00 atorvastati 2019- No 1mg n 10 [...] 100 mcg 2-02 tablet 00:00: 00 levothyroxi 2019- No 1mcg ne 200 mcg [...] 100 mcg 2-02 tablet 00:00: 00 Dose 2020-1 No Unknown 2-02 00:00: 00 Dose 2019-1 [...] tablet,girma 00:00: yed release 00 aspirin 81 2019- No 1mg mg [...] 100 mcg 2-02 tablet 00:00: 00 amlodipine 2019-05 No 1mg 10 mg 0-21 tablet 00:00: 00 amlodipine 2019-05 No 1mg 10 mg 0-21 tablet 00:00: 00 amlodipine 2019- No 1mg 10 mg 0-21 tablet 00:00: 00 amlodipine 2019-05 No 1mg 10 mg 0-21 tablet 00:00: [...] 10 MG 17:30: nightly. Medical tablet 21 [place] calcium 2020-0 Yes 3{tbl} Q.[id number] Take [address] [facility] carbonate 8-15 [id number] tablets by [facility] (TUMS) 500 17:30: 3D mouth 3 Medi benjy mg chewable 21 (three) Cente r tablet times daily. furosemide 2020-0 Yes 20mg QD Take [address] (LASIX) 20 8-15 by mouth [facility] MG tablet 17:30: daily. Medica l 21 [place] lovastatin 2020-0 Yes 10mg QD Take [address] (MEVACOR) 8-15 by mouth [facility] 10 MG 17:30: nightly. Medical tablet 21 [place] calcium 2020-0 Yes 3{tbl} Q.[id number] Take [address] [facility] [address] carbonate 8-15 [id number] tablets by [facility] (TUMS) 500 17:30: 3D mouth 3 Medi benjy mg chewable 21 (three) Cente r tablet times daily. furosemide 2020-0 Yes 20mg QD Take [address] (LASIX) 20 8-15 by mouth [facility] MG tablet 17:30: daily. Medica l [address] [place] [address] lovastatin 2020-0 Yes 10mg QD Take [address] (MEVACOR) 8-15 by mouth [facility] 10 MG 17:30: nightly. Medical tablet 21 [place] calcium 2020-0 Yes 3{tbl} Q.[id number] Take [address] carbonate 8-15 [id number] tablets by [facility] (TUMS) 500 17:30: 3D mouth 3 Medi benjy mg chewable 21 (three) Cente r tablet times daily. furosemide 2020-0 Yes 20mg QD Take [address] (LASIX) 20 8-15 by mouth [facility] MG tablet 17:30: daily. Medica [address] lovastatin 2020-0 Yes 10mg QD Take [address] (MEVACOR) 8-15 by mouth [facility] 10 MG 17:30: nightly. Medical tablet [address] [place] [address] calcium 2020-0 Yes 3{tbl} Q.[id number] Take [address] carbonate 8-15 [id number] tablets by [facility] (TUMS) 500 17:30: 3D mouth 3 Medi benjy mg chewable 21 (three) Cente r tablet times daily. furosemide 2020-0 Yes 20mg QD Take [address] (LASIX) 20 8-15 by mouth [facility] MG tablet 17:30: [facility]. [facility] [address] lovastatin 2020-0 Yes 10mg QD Take [address] (MEVACOR) 8-15 by mouth [facility] 10 MG 17:30: nightly. Medical tablet [address] [place] [address] calcium 2020-0 Yes 3{tbl} Q.[id number] Take [address] carbonate 8-15 [id number] tablets by [facility] (TUMS) 500 17:30: 3D mouth 3 Medi benjy mg chewable 21 (three) Cente r tablet times daily. furosemide 2020-0 Yes 20mg QD Take [address] (LASIX) 20 8-15 by mouth [facility] MG tablet 17:30: [facility]. [facility] [address] lovastatin 2020-0 Yes 10mg QD Take [address] (MEVACOR) 8-15 by mouth [facility] 10 MG 17:30: nightly. Medical tablet [address] [place] [address] calcium 2020-0 Yes 3{tbl} Q.[id number] Take [address] carbonate 8-15 [id number] tablets by [facility] (TUMS) 500 17:30: 3D mouth 3 Medi benjy mg chewable 21 (three) Cente r tablet times daily. furosemide 2020-0 Yes 20mg QD Take [address] (LASIX) 20 8-15 by mouth [facility] MG tablet 17:30: daily. [address] lovastatin 2020-0 Yes 10mg QD Take [address] (MEVACOR) 8-15 by mouth [facility] 10 MG 17:30: nightly. Medical tablet [address] [place] [address] calcium 2020-0 Yes 3{tbl} Q.[id number] Take [address] carbonate 8-15 [id number] tablets by [facility] (TUMS) 500 17:30: 3D mouth 3 Medi benjy mg chewable 21 (three) Cente r tablet times daily. furosemide 2020-0 Yes 20mg QD Take [address] (LASIX) 20 8-15 by mouth [facility] MG tablet 17:30: daily. [address] lovastatin 2020-0 Yes 10mg QD Take [address] (MEVACOR) 8-15 by mouth [facility] 10 MG 17:30: nightly. Medical tablet [address] [place] [address] calcium 2020-0 Yes 3{tbl} Q.[id number] Take [address] carbonate 8-15 [id number] tablets by [facility] (TUMS) 500 17:30: 3D mouth 3 Medi benjy mg chewable 21 (three) Cente r tablet times daily. furosemide 2020-0 Yes 20mg QD Take [address] (LASIX) 20 8-15 by mouth [facility] MG tablet 17:30: daily. [address] lovastatin 2020-0 Yes 10mg QD Take [address] (MEVACOR) 8-15 by mouth [facility] 10 MG 17:30: nightly. Medical tablet [address] [place] [address] calcium 2020-0 Yes 3{tbl} Q.[id number] Take [address] carbonate 8-15 [id number] tablets by [facility] (TUMS) 500 17:30: 3D mouth 3 Medi benjy mg chewable 21 (three) Cente r tablet times daily. furosemide 2020-0 Yes 20mg QD Take [address] (LASIX) 20 8-15 by mouth [facility] MG tablet 17:30: daily. [address] lovastatin 2020-0 Yes 10mg QD Take [address] (MEVACOR) 8-15 by mouth [facility] 10 MG 17:30: nightly. Medical tablet [address] [place] [address] calcium 2020-0 Yes 3{tbl} Q.[id number] Take [address] carbonate 8-15 [id number] tablets by [facility] (opendorseS) 500 17:30: 3D mouth 3 Medi benjy mg chewable 21 (three) Cente r tablet times daily. furosemide 2020-0 Yes 20mg QD Take [address] (LASIX) 20 8-15 by mouth [facility] MG tablet 17:30: daily. [facility] [address] lovastatin 2020-0 Yes 10mg QD Take [address] (MEVACOR) 8-15 by mouth [facility] 10 MG 17:30: nightly. Medical tablet [address] [place] [address] calcium 2020-0 Yes 3{tbl} Q.[id number] Take [address] carbonate 8-15 [id number] tablets by [facility] (opendorseS) 500 17:30: 3D mouth 3 Medi benjy mg chewable 21 (three) Cente r tablet times daily. furosemide 2020-0 Yes 20mg QD Take [address] (LASIX) 20 8-15 by mouth [facility] MG tablet 17:30: daily. [address] lovastatin 2020-0 Yes 10mg QD Take [address] (MEVACOR) 8-15 by mouth [facility] 10 MG 17:30: nightly. Medical tablet [address] [place] [address] calcium 2020-0 Yes 3{tbl} Q.[id number] Take [address] carbonate 8-15 [id number] tablets by [facility] (opendorseS) 500 17:30: 3D mouth 3 Medi benjy mg chewable 21 (three) Cente r tablet times daily. furosemide 2020-0 Yes 20mg QD Take [address] (LASIX) 20 8-15 by mouth [facility] MG tablet 17:30: daily. [address] lovastatin 2020-0 Yes 10mg QD Take [address] (MEVACOR) 8-15 by mouth [facility] 10 MG 17:30: nightly. Medical tablet [address] [place] [address] calcium 2020-0 Yes 3{tbl} Q.[id number] Take [address] carbonate 8-15 [id number] tablets by [facility] (opendorseS) 500 17:30: 3D mouth 3 Medi benjy mg chewable 21 (three) Cente r tablet times daily. furosemide 2020-0 Yes 20mg QD Take [address] (LASIX) 20 8-15 by mouth [facility] MG tablet 17:30: daily. [address] lovastatin 2020-0 Yes 10mg QD Take [address] (MEVACOR) 8-15 by mouth [facility] 10 MG 17:30: nightly. Medical tablet 21 [place] calcium 2020-0 Yes 3{tbl} Q.[id number] Take [address] carbonate 8-15 [id number] tablets by [facility] (TUMS) 500 17:30: 3D mouth 3 Medi benjy mg chewable 21 (three) Cente r tablet times daily. furosemide 2020-0 Yes 20mg QD Take [address] (LASIX) 20 8-15 by mouth [facility] MG tablet 17:30: daily. Medica l [address] [place] cyclobenzap 2020-0 Yes 1{tbl} QD Take [address] [facility] 8-04 tablet by [facility] (FLEXERIL) 00:00: mouth Medica l 10 MG 00 daily. [place] tablet cyclobenzap 2020-0 Yes 1{tbl} QD Take [address] [facility] 8-04 tablet by [facility] (FLEXERIL) 00:00: mouth Medica l 10 MG 00 daily. [place] tablet cyclobenzap 2020-0 Yes 1{tbl} QD Take [address] [facility] 8-04 tablet by [facility] (FLEXERIL) 00:00: mouth Medica l 10 MG 00 daily. [place] tablet cyclobenzap 2020-0 Yes 1{tbl} QD Take [address] [facility] 8-04 tablet by [facility] (FLEXERIL) 00:00: mouth Medica l 10 MG 00 daily. [place] tablet cyclobenzap 2020-0 Yes 1{tbl} QD Take [address] [facility] 8-04 tablet by [facility] (FLEXERIL) 00:00: mouth Medica l 10 MG 00 daily. [place] tablet cyclobenzap 2020-0 Yes 1{tbl} QD Take [address] [facility] 8-04 tablet by [facility] (FLEXERIL) 00:00: mouth Medica l 10 MG 00 daily. [place] tablet cyclobenzap 2020-0 Yes 1{tbl} QD Take [address] [facility] 8-04 tablet by [facility] (FLEXERIL) 00:00: mouth Medica l 10 MG 00 daily. [place] tablet cyclobenzap 2020-0 Yes 1{tbl} QD Take [...] [facility] rol 7-19 le} capsule by [employer] (ERGOCALCIF 00:00: mouth once Medical JAYESH) 1,250 00 a week. Cente r mcg (50,000 unit) capsule ergocalcife 2020-0 Yes 1{capsu Q7D Take [address] rol 7-19 le} capsule by [facility] (ERGOCALCIF 00:00: mouth once Medical JAYESH) ,250 00 a week. Cente r mcg (50,000 [...] [facility] rol 7-19 le} capsule by [facility] (ERGOCALCIF 00:00: mouth once Medical JAYESH) 1,250 [...] MG 00:00: mouth Medical tablet 00 daily. [place] atorvastati 2019-0 Yes 1{tbl} QD Take [address] [facility] (LIPITOR) 5-15 tablet by Sheng es 10 MG 00:00: mouth Medical tablet 00 daily. [place] atorvastati 2019-0 Yes 1{tbl} QD Take [address] n (LIPITOR) 5-15 tablet by Sheng es 10 MG 00:00: mouth Medical tablet 00 daily. [place] atorvastati 2019-0 Yes 1{tbl} QD Take [address] n (LIPITOR) 5-15 tablet by Sheng es 10 MG 00:00: mouth Medical tablet 00 daily. [place] atorvastati 2019-0 Yes 1{tbl} QD Take [address] n (LIPITOR) 5-15 tablet by Sheng es 10 MG 00:00: mouth Medical tablet 00 daily. [place] atorvastati 2019-0 Yes 1{tbl} QD Take [address] n (LIPITOR) 5-15 tablet by Sheng es 10 MG 00:00: mouth Medical tablet 00 daily. [place] atorvastati 2019-0 Yes 1{tbl} QD Take [address] n (LIPITOR) 5-15 tablet by Sheng es 10 MG 00:00: mouth Medical tablet 00 daily. [place] atorvastati 2020-0 Yes 1{tbl} QD Take [address] n (LIPITOR) 5-15 tablet by Sheng es 10 MG 00:00: mouth Medical tablet 00 daily. [place] atorvastati 2020-0 Yes 1{tbl} QD Take [address] n (LIPITOR) 5-15 tablet by Sheng es 10 MG 00:00: mouth Medical tablet 00 daily. [place] atorvastati 2019-0 Yes 1{tbl} QD Take [address] n (LIPITOR) 5-15 tablet by Sheng es 10 MG 00:00: mouth Medical tablet 00 daily. [place] atorvastati 2019-0 Yes 1{tbl} QD Take [address] n (LIPITOR) 5-15 tablet by Sheng es 10 MG 00:00: mouth Medical tablet 00 daily. [place] atorvastati 2019-0 Yes 1{tbl} QD Take [address] n (LIPITOR) 5-15 tablet by Sheng es 10 MG 00:00: mouth Medical tablet 00 daily. [place] atorvastati 2019-0 Yes 1{tbl} QD Take [address] n (LIPITOR) 5-15 tablet by Sheng es 10 MG 00:00: mouth Medical tablet 00 daily. [place] atorvastati 2019-0 Yes 1{tbl} QD Take [address] [facility] (LIPITOR) 5-15 tablet by Sheng es 10 MG 00:00: mouth Medical tablet 00 daily. [place] aspirin 81 2020-0 No 1mg mg 3-04 [...] MG 00:00: daily . Medical tablet 00 [place] amLODIPine 2020-0 Yes 10mg QD Take [address] (NORVASC) 1-16 by mouth [facility] 10 MG 00:00: daily . Medical tablet 00 [place] amLODIPine 2020-0 Yes 10mg QD Take [address] (NORVASC) 1-16 by mouth [facility] 10 MG 00:00: daily . Medical tablet 00 [place] amLODIPine 2020-0 Yes 10mg QD Take [address] (NORVASC) 1-16 by mouth [facility] 10 MG 00:00: daily . Medical tablet 00 [place] amLODIPine 2020-0 Yes 10mg QD Take [address] (NORVASC) 1-16 by mouth [facility] 10 MG 00:00: daily . Medical tablet 00 [place] amLODIPine 2020-0 Yes 10mg QD Take [address] (NORVASC) 1-16 by mouth [facility] 10 MG 00:00: daily . Medical tablet 00 [place] amLODIPine 2020-0 Yes 10mg QD Take [address] (NORVASC) 1-16 by mouth [facility] 10 MG 00:00: daily . Medical tablet 00 [place] amLODIPine 2020-0 Yes 10mg QD Take [address] (NORVASC) 1-16 by mouth [facility] 10 MG 00:00: daily . Medical tablet 00 [place] amLODIPine 2020-0 Yes 10mg QD Take [address] (NORVASC) 1-16 by mouth [facility] 10 MG 00:00: daily . Medical tablet 00 [place] amLODIPine 2020-0 Yes 10mg QD Take [address] (NORVASC) 1-16 by mouth [facility] 10 MG 00:00: daily . Medical tablet [address] [place] [address] amLODIPine 2020-0 Yes 10mg QD Take [address] (NORVASC) 1-16 by mouth [facility] 10 MG 00:00: daily . Medical tablet 00 [place] amLODIPine 2020-0 Yes 10mg QD Take [address] (NORVASC) 1-16 [facility] 10 MG 00:00: daily . Medical tablet [address] amLODIPine 2020-0 Yes 10mg QD Take [address] (NORVASC) 1-16 [facility] 10 MG 00:00: daily . Medical tablet [address] amLODIPine 2020-0 Yes 10mg QD Take [address] (NORVASC) 1-16 [facility] 10 MG 00:00: daily . Medical tablet [address] aspirin 81 2020-0 No 1mg mg 1-10 [...] tablet 00:00: 00 sevelamer 2020-0 Yes 800mg [id number] [address] [facility] [address] ([place]) 1-10 [id number] (three) [facility] 800 mg 00:00: 3D times Medical tablet 00 daily . [place] UNITHROID 2020-0 Yes 125ug QD Take [address] [facility] 125 mcg 1-10 [facility] mouth [facility] 00 nightly . [place] sevelamer 2020-0 Yes 800mg [id number] [address] [facility] ([place]) 1-10 [id number] (three) [facility] 800 mg 00:00: 3D times Medical tablet 00 daily . [place] UNITHROID 2020-0 Yes 125ug QD Take [address] [facility] 125 mcg 1-10 mcg [facility] 00:[facility]: mouth Medical 00 nightly . [place] sevelamer 2020-0 Yes 800mg Q.[id number] [address] [facility] ([place]) 1-10 [id number] (three) [facility] 800 mg 00:00: 3D times Medical tablet 00 daily . [place] UNITHROID 2020-0 Yes 125ug QD Take [address] [facility] 125 mcg 1-10 mcg [facility] 00:00: mouth Medical 00 nightly . [place] sevelamer 2020-0 Yes 800mg Q.[id number] [address] [facility] ([place]) 1-10 [id number] (three) [facility] 800 mg 00:00: 3D times Medical tablet 00 daily . [place] UNITHROID 2020-0 Yes 125ug QD Take [address] [facility] [address] 125 mcg 1-10 mcg [facility] tablet 00:00: mouth Medical 00 nightly . [place] sevelamer 2020-0 Yes 800mg Q.[id number] [address] [facility] ([place]) 1-10 [id number] (three) [facility] 800 mg 00:00: 3D times Medical tablet 00 daily . [place] UNITHROID 2020-0 Yes 125ug QD Take [address] [facility] 125 mcg 1-10 mcg [facility] tablet 00:00: mouth Medical 00 nightly . [place] sevelamer 2020-0 Yes 800mg Q.[id number] [address] [facility] ([place]) 1-10 [id number] (three) [facility] 800 mg 00:00: 3D times Medical tablet 00 daily . [place] UNITHROID 2020-0 Yes 125ug QD Take [address] [facility] [address] 125 mcg 1-10 mcg [facility] tablet 00:00: mouth Medical 00 nightly . [place] sevelamer 2020-0 Yes 800mg Q.[id number] [address] [facility] ([place]) 1-10 [id number] (three) [facility] 800 mg 00:00: 3D times Medical tablet 00 daily . [place] UNITHROID 2020-0 Yes 125ug QD Take [address] [facility] [address] 125 mcg 1-10 [facility]cg [facility] 00:00: mouth Medical 00 nightly . [place] sevelamer 2020-0 Yes 800mg Q.[id number] [address] [facility] ([place]) 1-10 [id number] (three) [facility] 800 mg 00:00: 3D times Medical tablet 00 daily . [place] UNITHROID 2020-0 Yes 125ug QD Take [address] [facility] [address] 125 mcg 1-10 mcg [facility] 00:00: mouth Medical 00 nightly . [place] sevelamer 2020-0 Yes 800mg Q.[id number] [address] [facility] ([place]) 1-10 [id number] (three) [facility] 800 mg 00:00: 3D times Medical tablet 00 daily . [place] UNITHROID 2020-0 Yes 125ug QD Take [address] [facility] [address] 125 mcg 1-10 mcg [facility] 00:00: mouth Medical 00 nightly . [place] sevelamer 2020-0 Yes 800mg Q.[id number] [address] [facility] ([place]) 1-10 [id number] (three) [facility] 800 mg 00:00: 3D times Medical tablet 00 daily . [place] UNITHROID 2020-0 Yes 125ug QD Take [address] [facility] [address] 125 mcg 1-10 [facility]cg [facility] 00:00: mouth Medical 00 nightly . [place] sevelamer 2020-0 Yes 800mg Q.[id number] [address] [facility] ([place]) 1-10 [id number] (three) [facility] 800 mg 00:00: 3D times Medical tablet 00 daily . [place] UNITHROID 2020-0 Yes 125ug QD Take [address] [facility] [address] 125 mcg 1-10 mcg [facility] tablet 00:00: mouth Medical 00 nightly . [place] sevelamer 2020-0 Yes 800mg Q.[id number] [address] [facility] ([place]) 1-10 [id number] (three) [facility] 800 mg 00:00: 3D times Medical tablet 00 daily . [place] UNITHROID 2020-0 Yes 125ug QD Take [address] [facility] [address] 125 mcg 1-10 mcg [facility] tablet 00:00: mouth Medical 00 nightly . [place] sevelamer 2020-0 Yes 800mg Q.[id number] [address] [facility] ([place]) 1-10 [id number] (three) [facility] 800 mg 00:00: 3D times Medical tablet 00 daily . [place] UNITHROID 2020-0 Yes 125ug QD Take [address] [facility] [address] 125 mcg 1-10 [facility]cg [facility] 00:00: mouth Medical 00 nightly . [place] sevelamer 2020-0 Yes 800mg Q.[id number] [address] [facility] ([place]) 1-10 [id number] (three) [facility] 800 mg 00:00: 3D times Medical tablet 00 daily . [place] UNITHROID 2020-0 Yes 125ug QD Take [address] [facility] [address] 125 mcg 1-10 [facility]cg [facility] 00:00: mouth Medical 00 nightly . [place] amlodipine 2020-0 No 1mg 10 mg 1-08 [...] 1-12 capsule 00:00: 00 gabapentin 2018-05 Yes [id number] 100mg Take 1 [facility] 100 mg 0-22 capsule by [facility] capsule 00:00: mouth 3 [place] 00 (three) Medical times Branch daily. gabapentin 2018-05 Yes [id number] 100mg Take 1 [facility] 100 mg 0-22 capsule by [facility] of capsule 00:00: mouth 3 [place] 00 (three) Medical times Branch daily. gabapentin 2018-05 Yes [id number] 100mg Take 1 [facility] 100 mg 0-22 [...] 200 mcg 0-01 tablet 00:00: 00 calcium 2018- No [...] mg tablet 0-01 00:00: 00 aspirin 81 2018- No 1mg mg 0-01 tablet,girma 00:00: yed release 00 amlodipine 2018-1 No 1mg 10 mg 0-01 tablet 00:00: [...] mcg 0-01 tablet 00:00: 00 amLODIPine Yes [id number] 10mg Take 1 [facility] n[facility] 10 mg 9-16 tablet by [facility]y of tablet 00:00: mouth [place] 00 daily. Medical Branch aspirin 81 Yes [id number] 81mg Take 1 [facility] mg chewable 9-16 tablet by [facility]y of tablet 00:00: mouth [place] 00 daily. Medical Branch atorvastati Yes [id number] 40mg Take 2 [facility] n 20 mg 9-16 tablets by [facility] of tablet 00:00: mouth at [place] 00 bedtime. Medical Branch calcium Yes [id number] 1000mg Take 2 U nivers carbonate 9-16 tablets by ity of (CALCIUM 00:00: mouth 3 [place] 500) 500 mg 00 (three) Medic al calcium times Branch (1,250 mg) daily with tablet meals. meclizine 2019-0 Yes [id number] 25mg Take 2 U nivers 12.5 mg 9-16 tablets by ity of tablet 00:00: mouth 3 [place] 00 (three) Medical times Branch daily as needed for Dizziness. [place] (for dizziness) sevelamer 2019-0 Yes [id number] 800mg Take 1 [facility] 800 mg 9-16 tablet by [facility]y of tablet 00:00: mouth 3 [place] 00 (three) Medical times Branch daily with meals. amLODIPine 2019-0 Yes [id number] 10mg Take 1 [facility] nivers 10 mg 9-16 tablet by [facility]y of tablet 00:00: mouth [place] 00 daily. Medical Branch aspirin 81 2018-0 Yes [id number] 81mg Take 1 [facility] mg chewable 9-16 tablet by [facility]y of tablet 00:00: mouth [place] 00 daily. Medical Branch atorvastati 2018-0 Yes [id number] 40mg Take 2 [facility] n 20 mg 9-16 tablets by [facility]y of tablet 00:00: mouth at [place] 00 bedtime. Medical Branch calcium 2018-0 Yes [id number] 1000mg Take 2 U nivers carbonate 9-16 tablets by ity of (CALCIUM 00:00: mouth 3 [place] 500) 500 mg 00 (three) Medic al calcium times Branch (1,250 mg) daily with tablet meals. meclizine 2019-0 Yes [id number] 25mg Take 2 U nivers 12.5 mg 9-16 tablets by ity of tablet 00:00: mouth 3 [place] 00 (three) Medical times Branch daily as needed for Dizziness. [place] (for dizziness) sevelamer 2019-0 Yes [id number] 800mg Take 1 [facility] 800 mg 9-16 tablet by [facility]y of tablet 00:00: mouth 3 [place] 00 (three) Medical times Branch daily with meals. amLODIPine 2019-0 Yes [id number] 10mg Take 1 U nivers 10 mg 9-16 tablet by ity of tablet 00:00: mouth [place] 00 daily. Medical Branch aspirin 81 2018-0 Yes [id number] 81mg Take 1 [facility] mg chewable 9-16 tablet by [facility]y of tablet 00:00: mouth [place] 00 daily. Medical Branch atorvastati 2019-0 Yes [id number] 40mg Take 2 [facility] n 20 mg 9-16 tablets by ity of tablet 00:00: mouth at [place] 00 bedtime. Medical Branch calcium 2018- Yes [id number] 1000mg Take 2 U nivers carbonate 9-16 tablets by ity of (CALCIUM 00:00: mouth 3 [place] 500) 500 mg 00 (three) Medic al calcium times Branch (1,250 mg) daily with tablet meals. meclizine 2018- Yes [id number] 25mg Take 2 U nivers 12.5 mg 9-16 tablets by ity of tablet 00:00: mouth 3 [place] 00 (three) Medical times Branch daily as needed for Dizziness. [place] (for dizziness) sevelamer 2018- Yes [id number] 800mg Take 1 [facility] 800 mg 9-16 tablet by [facility] of tablet 00:00: mouth 3 [place] 00 (three) Medical times Branch daily with meals. levothyroxi Yes 150ug QD Take 150 M [...] 15:20: daily. [facility] 50 l levothyroxi 0 Yes 150ug QD Take 150 M ethodi [...] mg 15:20: daily. [facility] tablet 50 l amLODIPine 2019-0 Yes [...] 15:20: nightly. [facility] tablet 50 l levothyroxi 2019-0 Yes 150ug QD Take 150 M ethodi ne 9-[address] (SYNTHROID, 15:20: mouth Hospi ta LEVOXYL) 50 daily. l 150 mcg tablet amLODIPine 2019-0 Yes 10mg QD Take 10 [...] MG 15:20: nightly. [facility]osp[facility] tablet 50 l lovastatin 2019-0 Yes 20mg QD Take 20 [...] daily. [facility]osp[facility] tablet 50 l levothyroxi 2019-0 No 1mcg ne 200 mcg [...] Comments Sour e Immunization Name Name Roger COVID-19 2021-12-02 [...] [place] [facility] ical PPSV23 (PNEUMOVAX) Branch Pneumococcal 2018-03-07 Completed University o f Polysaccharide, 00:00:00 [place] Med ical PPSV23 (PNEUMOVAX) Branch Pneumococcal 2018-03-07 Completed University o f Polysaccharide, 00:00:00 [place] Med ical PPSV23 (PNEUMOVAX) Branch Vital Signs Vital Name Observation Time Observation Value Comments Source HEIGHT 2019-11-07 00:00:00 162.6 cm WEIGHT 2019-11-07 00:00:00 76.4 kg Systolic blood 2021-12-02 19:06:00 116 mm[Hg] Univer sity of pressure [facility] Diastolic blood 2021-12-02 19:06:00 68 mm[Hg] Unive rsity of pressure [facility] Heart rate 2021-12-02 19:06:00 69 /min Universi ty [facility] Body height 2021-12-02 19:06:00 162.6 cm Universi ty [facility] Body weight 2021-12-02 19:06:00 78.019 kg Universi ty [facility] BMI 2021-12-02 19:06:00 29.52 kg/m2 Universi ty [facility] Oxygen saturation in 2021-12-02 19:06:00 95 /min [facility] Arterial blood by [facility] Pulse oximetry Branch HEIGHT 2019-11-07 00:00:00 162.6 [...] 18.00 /min Procedures Procedure Date / Time Performing Clinician Source Performed REFERRAL- 2022-05-28 06:01:00 Doctor Unassigned, No [facility] REQUEST/RESPONSE Name Medical Branch [id number] 2022-04-17 00:00:00 [facility] P john paul [id number] 2022-04-08 00:00:00 [facility] P john paul Plan of Care Planned Activity Planned Date Details Comments Source Future Scheduled 2022-07-[address] [facility] 00:00:00 (procedure) [code = [facility] [id number]] Future Scheduled 2022-07-[address] [facility] Test 00:00:00 (procedure) [code = [facility] [id number]] Future Scheduled 2022-07-[address] [facility] Test 00:00:00 (procedure) [code = [facility] [id number]] Future Scheduled 2022-07-[address] [facility] Test 00:00:00 (procedure) [code = [facility] [id number]] Future Scheduled 2022-07-[address] [facility] Test 00:00:00 (procedure) [code = [facility] [id number]] Future Scheduled 2022-07-[address] [facility] Test 00:00:00 (procedure) [code = [facility] [id number]] Future Scheduled 2022-07-[address] [facility] Test 00:00:00 (procedure) [code = [facility] Center [id number]] Future Scheduled 2022-07-[address] [facility] Test 00:00:00 (procedure) [code = [facility] Center [id number]] Future Scheduled 2022-07-[address] [facility] Test 00:00:00 (procedure) [code = Medical Center [id number]] Future Scheduled 2022-07-[address] [facility] Test 00:00:00 (procedure) [code = [facility] Center [id number]] Future Scheduled 2022-07-[address] [facility] Test 00:00:00 (procedure) [code = [facility] Center [id number]] Future Scheduled 2022-07-[address] [facility] Test 00:00:00 (procedure) [code = [facility] Center [id number]] Future Scheduled 2022-07-[address] [facility] Test 00:00:00 (procedure) [code = [facility] Center [id number]] Future Scheduled 2022-07-[address] [facility] Test 00:00:00 (procedure) [code = Medical Center [id number]] Future Scheduled 2022-05-28 COVID-19 VACCINE (#1) [facility] Test 09:36:27 [code = COVID-19 VACCINE (#1)] Future Scheduled 2022-05-28 COLONOSCOPY SCREENING [facility] Test 09:36:27 [code = COLONOSCOPY SCREENING] Future Scheduled 2022-05-28 SHINGLES VACCINES (1 Met [facility] Test 09:36:27 of 2) [code = SHINGLES VACCINES (1 of 2)] Future Scheduled 2022-05-28 INFLUENZA VACCINE [facility] Test 09:36:27 [code = INFLUENZA VACCINE] Future Scheduled 2022-05-28 COVID-19 VACCINE (#1) [facility] Test 09:36:27 [code = COVID-19 VACCINE (#1)] Future Scheduled 2022-05-28 COLONOSCOPY SCREENING [facility] Test 09:36:27 [code = COLONOSCOPY SCREENING] Future Scheduled 2022-05-28 [facility]LES [facility]ACCINES ([facility] 09:36:27 of 2) [code = SHINGLES VACCINES (1 of 2)] Future Scheduled 2022-05-28 INFLUENZA VACCINE [facility] Test 09:36:27 [code = INFLUENZA VACCINE] Future Scheduled 2022-05-11 COVID-19 VACCINE (#1) [facility] Test 00:38:04 [code = COVID-19 VACCINE (#1)] Future Scheduled 2022-05-11 COLONOSCOPY SCREENING [facility] Test 00:38:04 [code = COLONOSCOPY SCREENING] Future Scheduled 2022-05-11 SHINGLES VACCINES (1 Met [facility] Test 00:38:04 of 2) [code = SHINGLES VACCINES (1 of 2)] Future Scheduled 2022-05-11 INFLUENZA VACCINE [facility] Test 00:38:04 [code = INFLUENZA VACCINE] Future Scheduled 2022-05-11 COVID-19 VACCINE (#1) [facility] Test 00:38:04 [code = COVID-19 VACCINE (#1)] Future Scheduled 2022-05-11 COLONOSCOPY SCREENING [facility] Test 00:38:04 [code = COLONOSCOPY SCREENING] Future Scheduled 2022-05-11 SHINGLES VACCINES (1 [facility] Test 00:38:04 of 2) [code = SHINGLES VACCINES (1 of 2)] Future Scheduled 2022-05-11 INFLUENZA VACCINE [facility] Test 00:38:04 [code = INFLUENZA VACCINE] Future Scheduled 2022-05-[address] [facility] Test 00:00:00 (12+) [code = Medical Center DEPRESSION SCREENING (12+)] Future Scheduled 2022-05-[address] [facility] Test 00:00:00 (12+) [code = Medical Center DEPRESSION SCREENING (12+)] Future Scheduled 2022-05-[address] [facility] Test 00:00:00 (12+) [code = Medical Center DEPRESSION SCREENING (12+)] Future Scheduled 2022-05-[address] [facility] Test 00:00:00 (12+) [code = Medical Center DEPRESSION SCREENING (12+)] Future Scheduled 2022-04-23 COVID-19 VACCINE (#1) [facility] Test 11:12:56 [code = COVID-19 VACCINE (#1)] Future Scheduled 2022-04-23 [facility]ONOSCOPY SCREENING [facility] Test 11:12:56 [code = COLONOSCOPY SCREENING] Future Scheduled 2022-04-23 SHINGLES VACCINES (1 [facility] 11:12:56 of 2) [code = SHINGLES VACCINES (1 of 2)] Future Scheduled 2022-04-23 INFLUENZA VACCINE [facility] Test 11:12:56 [code = INFLUENZA VACCINE] Future Scheduled 2022-04-20 COVID-19 VACCINE (#1) [facility] Test 13:44:31 [code = COVID-19 VACCINE (#1)] Future Scheduled 2022-04-20 COLONOSCOPY SCREENING [facility] Test 13:44:31 [code = COLONOSCOPY SCREENING] Future Scheduled 2022-04-20 [facility]ACCINES [facility] 13:44:31 of 2) [code = SHINGLES VACCINES (1 of 2)] Future Scheduled 2022-04-20 INFLUENZA VACCINE [facility] Test 13:44:31 [code = INFLUENZA VACCINE] Future Scheduled 2022-04-20 [facility] 13:44:31 [code = COVID-19 VACCINE (#1)] Future Scheduled 2022-04-20 [facility] 13:44:31 [code = COLONOSCOPY SCREENING] Future Scheduled 2022-04-20 SHINGLES VACCINES (1 [facility] 13:44:31 of 2) [code = SHINGLES VACCINES (1 of 2)] Future Scheduled 2022-04-20 INFLUENZA VACCINE [facility] Test 13:44:31 [code = INFLUENZA VACCINE] Future Scheduled 2022-04-20 COVID-19 VACCINE (#1) [facility] Test 13:44:31 [code = COVID-19 VACCINE (#1)] Future Scheduled 2022-04-20 [facility] 13:44:31 [code = COLONOSCOPY SCREENING] Future Scheduled 2022-04-20 SHINGLES VACCINES ([facility] 13:44:31 of 2) [code = SHINGLES VACCINES (1 of 2)] Future Scheduled 2022-04-20 INFLUENZA VACCINE [facility] Test 13:44:31 [code = INFLUENZA VACCINE] Future Scheduled 2022-04-20 COVID-19 VACCINE (#1) [facility] Test 13:44:31 [code = COVID-19 VACCINE (#1)] Future Scheduled 2022-04-20 COLONOSCOPY SCREENING [facility] Test 13:44:31 [code = COLONOSCOPY SCREENING] Future Scheduled 2022-04-20 SHINGLES VACCINES (1 [facility] Test 13:44:31 of 2) [code = SHINGLES VACCINES (1 of 2)] Future Scheduled 2022-04-20 INFLUENZA VACCINE Method [facility] Test 13:44:31 [code = INFLUENZA VACCINE] Future Scheduled 2022-03-04 HEPATITIS B VACCINES Met [facility] Test 13:56:11 (1 of 3 - 3-dose series) [code = HEPATITIS B VACCINES (1 of 3 - 3-dose series)] Future Scheduled 2022-03-04 COVID-19 VACCINE (#1) [facility] Test 13:56:11 [code = COVID-19 VACCINE (#1)] Future Scheduled 2022-03-04 COLONOSCOPY SCREENING [facility] Test 13:56:11 [code = COLONOSCOPY SCREENING] Future Scheduled 2022-03-04 SHINGLES VACCINES (1 [facility] Test 13:56:11 of 2) [code = SHINGLES VACCINES (1 of 2)] Future Scheduled 2022-03-04 INFLUENZA VACCINE Method [facility] Test 13:56:11 [code = INFLUENZA VACCINE] Future Scheduled 2022-03-04 HEPATITIS B VACCINES [facility] Test 13:56:11 (1 of 3 - 3-dose series) [code = HEPATITIS B VACCINES (1 of 3 - 3-dose series)] Future Scheduled 2022-03-04 COVID-19 VACCINE (#1) [facility] Test 13:56:11 [code = COVID-19 VACCINE (#1)] Future Scheduled 2022-03-04 COLONOSCOPY SCREENING [facility] Test 13:56:11 [code = COLONOSCOPY SCREENING] Future Scheduled 2022-03-04 SHINGLES VACCINES (1 [facility] Test 13:56:11 of 2) [code = SHINGLES VACCINES (1 of 2)] Future Scheduled 2022-03-04 INFLUENZA VACCINE [facility] Test 13:56:11 [code = INFLUENZA VACCINE] Future Scheduled 2022-03-04 HEPATITIS B VACCINES Met [facility] Test 13:56:11 (1 of 3 - 3-dose series) [code = HEPATITIS B VACCINES (1 of 3 - 3-dose series)] Future Scheduled 2022-03-04 COVID-19 VACCINE (#1) [facility] Test 13:56:11 [code = COVID-19 VACCINE (#1)] Future Scheduled 2022-03-04 COLONOSCOPY SCREENING [facility] Test 13:56:11 [code = COLONOSCOPY SCREENING] Future Scheduled 2022-03-04 SHINGLES VACCINES (1 Met [facility] Test 13:56:11 of 2) [code = SHINGLES VACCINES (1 of 2)] Future Scheduled 2022-03-04 INFLUENZA VACCINE [facility] Test 13:56:11 [code = INFLUENZA VACCINE] Future Scheduled 2022-02-08 HEPATITIS B VACCINES Met [facility] Test 14:31:50 (1 of 3 - 3-dose series) [code = HEPATITIS B VACCINES (1 of 3 - 3-dose series)] Future Scheduled 2022-02-08 COVID-19 VACCINE (#1) [facility] Test 14:31:50 [code = COVID-19 VACCINE (#1)] Future Scheduled 2022-02-08 COLONOSCOPY SCREENING [facility] Test 14:31:50 [code = COLONOSCOPY SCREENING] Future Scheduled 2022-02-08 SHINGLES VACCINES (1 Met [facility] Test 14:31:50 of 2) [code = SHINGLES VACCINES (1 of 2)] Future Scheduled 2022-02-08 INFLUENZA VACCINE [facility] Test 14:31:50 [code = INFLUENZA VACCINE] Future Scheduled 2022-01-03 HEPATITIS B VACCINES Met [facility] Test 04:21:26 (1 of 3 - 3-dose series) [code = HEPATITIS B VACCINES (1 of 3 - 3-dose series)] Future Scheduled 2022-01-03 COVID-19 VACCINE (#1) [facility] Test 04:21:26 [code = COVID-19 VACCINE (#1)] Future Scheduled 2022-01-03 Pneumococcal Vaccine: [facility] Test 04:21:26 Pediatrics (0 to 5 Years) and At-Risk Patients (6 to 64 Years) (1 - PCV) [code = Pneumococcal Vaccine: Pediatrics (0 to 5 Years) and At-Risk Patients (6 to 64 Years) (1 - PCV)] Future Scheduled 2022-01-03 Hepatitis C screening [facility] Test 04:21:26 (procedure) [code = [id number]] Future Scheduled 2022-01-03 SHINGLES VACCINES (1 [facility] Test 04:21:26 of 2) [code = SHINGLES VACCINES (1 of 2)] Future Scheduled 2022-01-03 COLONOSCOPY SCREENING [facility] Test 04:21:26 [code = COLONOSCOPY SCREENING] Future Scheduled 2022-01-03 INFLUENZA VACCINE [facility] Test 04:21:26 [code = INFLUENZA [...] Future Scheduled 2021-12-27 HEPATITIS B VACCINES Met [facility] Test 10:00:17 (1 of 3 - 3-dose series) [code = HEPATITIS B VACCINES (1 of 3 - 3-dose series)] Future Scheduled 2021-12-27 COVID-19 VACCINE (#1) [facility] Test 10:00:17 [code = COVID-19 VACCINE (#1)] Future Scheduled 2021-12-27 Pneumococcal Vaccine: [facility] Test 10:00:17 Pediatrics (0 to 5 Years) and At-Risk Patients (6 to 64 Years) (1 - PCV) [code = Pneumococcal Vaccine: Pediatrics (0 to 5 Years) and At-Risk Patients (6 to 64 Years) (1 - PCV)] Future Scheduled 2021-12-27 Hepatitis C screening [facility] Test 10:00:17 (procedure) [code = [id number]] Future Scheduled 2021-12-27 SHINGLES VACCINES (1 Met [facility] Test 10:00:17 of 2) [code = SHINGLES VACCINES (1 of 2)] Future Scheduled 2021-12-27 COLONOSCOPY SCREENING [facility] Test 10:00:17 [code = COLONOSCOPY SCREENING] Future Scheduled 2021-12-27 INFLUENZA VACCINE [facility] Test 10:00:17 [code = INFLUENZA VACCINE] Future Scheduled 2021-05-[address] [facility] 00:00:00 (12+) [code = [...] 00:00:00 measurement [facility] Center (procedure) [code = 03820467] Future Scheduled 2020-01-[address] [facility] (procedure) [code = 47474569] Future Scheduled 2020-01-[address] [facility] 00:[facility]:00 measurement [facility] (procedure) [code = 47636275] Future Scheduled 2020-01-[address] [facility] 00:[facility]:00 measurement [facility] (procedure) [code = 44312160] Future Scheduled 2020-01-[address] [facility] 00:00:00 measurement [facility] (procedure) [code = 48014276] Future Scheduled 2020-01-[address] [facility] 00:00:00 measurement [facility] (procedure) [code = 17192094] Future Scheduled 2020-01-[address] [facility] 00:00:00 measurement [facility] Center (procedure) [code = 39239009] Future Scheduled 2020-01-[address] [facility] 00:00:00 measurement [facility] (procedure) [code = 37639028] Future Scheduled 2020-01-[address] [facility] 00:00:00 measurement [facility] (procedure) [code = 63870943] Future Scheduled 2020-01-[address] [facility] 00:00:00 measurement [facility] (procedure) [code = 51050445] Future Scheduled 2020-01-[address] [facility] 00:00:00 measurement [facility] (procedure) [code = 94075017] Future Scheduled 2020-01-[address] [facility] 00:00:00 measurement [facility] (procedure) [code = 33982907] Future Scheduled 2020-01-[address] [facility] 00:00:00 measurement [facility] Center (procedure) [code = 94496153] Future Scheduled 2020-01-[address] [facility] 00:00:00 measurement [facility] Center (procedure) [code = 29358497] Future Scheduled 2019-11-[address] [facility] 00:00:00 examination [facility] (regime/therapy) [code = [id number]] Future Scheduled 1975 Urine screening for [facility] 00:00:00 protein (procedure) [facility] [code = 993515674] Future Scheduled [address]YE EXAM [facility] 00:00:00 [code = DIABETIC EYE [facility] EXAM] Future Scheduled [address] [facility] (regime/therapy) [code = 518486519] Future Scheduled 1975 Urine screening for [facility] 00:00:00 protein (procedure) [facility] [code = 563160397] Future Scheduled [address] EYE EXAM [facility] 00:00:00 [code = DIABETIC EYE [facility] EXAM] Future Scheduled [address] [facility] examination [facility] (regime/therapy) [code = 348478214] Future Scheduled 1975 Urine screening for [facility] 00:00:00 protein (procedure) [facility] [code = 293072651] Future Scheduled [address] EYE EXAM [facility] 00:00:00 [code = DIABETIC EYE [facility] EXAM] Future Scheduled [address] [facility] examination [facility] (regime/therapy) [code = 632566964] Future Scheduled 1975 Urine screening for [facility] 00:00:00 protein (procedure) [facility] [code = 458597657] Future Scheduled [address]AB[address] EYE EXAM [facility] 00:00:00 [code = DIABETIC EYE [facility] EXAM] Future Scheduled [address] [facility]00 examination [facility] (regime/therapy) [code = 414820797] Future Scheduled 1975 Urine screening for [facility] 00:00:00 protein (procedure) [facility] [code = 645008776] Future Scheduled [address] EYE EXAM [facility] 00:00:00 [code = DIABETIC EYE [facility] EXAM] Future Scheduled [address] [facility]00 examination [facility] (regime/therapy) [code = 627758266] Future Scheduled 1975 Urine screening for [facility] 00:00:00 protein (procedure) [facility] [code = 665396030] Future Scheduled [address] EYE EXAM [facility] 00:00:00 [code = DIABETIC EYE [facility] EXAM] Future Scheduled [address] [facility]00 examination [facility] (regime/therapy) [code = 130871247] Future Scheduled 1975 Urine screening for [facility] 00:00:00 protein (procedure) [facility] [code = 109589440] Future Scheduled [address]AB[address] EYE EXAM [facility] 00:00:00 [code = DIABETIC EYE [facility] EXAM] Future Scheduled [address] [facility]00 examination [facility] (regime/therapy) [code = 965304601] Future Scheduled 1975 Urine screening for [facility] 00:00:00 protein (procedure) [facility] [code = 574730715] Future Scheduled [address] DIAB[address] EYE EXAM [facility] 00:00:00 [code = DIABETIC EYE [facility] EXAM] Future Scheduled [address] [facility] 00[facility]00 examination [facility] (regime/therapy) [code = 263274508] Future Scheduled 1975 Urine screening for [facility] 00:00:00 protein (procedure) [facility] [code = 334963072] Future Scheduled [address] DIAB[address] EYE EXAM [facility] 00:00:00 [code = DIABETIC EYE [facility] EXAM] Future Scheduled [address] [facility] 00:[facility]:00 examination [facility] (regime/therapy) [code = 891009350] Future Scheduled 1975 Urine screening for [facility] 00:00:00 protein (procedure) [facility] [code = 255285782] Future Scheduled [address] DIAB[address] EYE EXAM [facility] 00:00:00 [code = DIABETIC EYE [facility] EXAM] Future Scheduled [address]AB[address] EYE EXAM [facility] 00:00:00 [code = DIABETIC EYE [facility] EXAM] Future Scheduled [address] [facility] 00[facility]00 examination [facility] (regime/therapy) [code = 031126877] Future Scheduled 1975 Urine screening for [facility] 00:00:00 protein (procedure) [facility] [code = 062466779] Future Scheduled [address] [facility] 00[facility]:00 examination [facility] (regime/therapy) [code = 235184380] Future Scheduled 1975 Urine screening for [facility] 00:00:00 protein (procedure) [facility] [code = 523520264] Future Scheduled [address] DIAB[address] EYE EXAM [facility] 00:00:00 [code = DIABETIC EYE [facility] EXAM] Future Scheduled [address] [facility] 00:[facility]:00 examination [facility] (regime/therapy) [code = 824153643] Future Scheduled 1975 Urine screening for [facility] 00:00:00 protein (procedure) [facility] [code = 469955296] Future Scheduled [address] DIABETIC EYE EXAM [facility] 00:00:00 [code = DIABETIC EYE [facility] EXAM] Future Scheduled [address] [facility] 00:[facility]:00 examination [facility] (regime/therapy) [code = 896671092] Future Scheduled 1975 Urine screening for [facility] 00:00:00 protein (procedure) [facility] [code = 700928428] Future Scheduled 1965 COVID-19 VACCINE (#1) [facility] colon (procedure) [code = 682377593] Future Scheduled [address] [facility] 00:[facility]00 [facility] colon (procedure) [code = 655656367] Future Scheduled [address] [facility] 00:00:00 [facility] colon (procedure) [code = 494929381] Future Scheduled [address] [facility] 00:00:00 [facility] colon (procedure) [code = 402800995] Future Scheduled 1965 S[facility]oidoscopy [facility] Future Scheduled [address] [facility] 00:00:00 (combo) [code = CT [facility] enter Colonography (combo)] Future Scheduled [address] [facility] 00:00:00 [facility] colon (procedure) [code = 600253429] Future Scheduled [address] [facility] 00:00:00 [facility] colon (procedure) [code = 964862598] Future Scheduled [address] [facility] 00:00:00 [facility] colon (procedure) [code = 200080895] Future Scheduled [address] [facility] 00:00:00 [facility] colon (procedure) [code = 119178977] Future Scheduled 1965 S[facility]oidoscopy [facility]] [facility] Future Scheduled [address] [facility] 00:00:00 (combo) [code = CT [facility] enter Colonography (combo)] Future Scheduled [address] [facility] 00:00:00 [facility] colon (procedure) [code = 707831580] Future Scheduled [address] [facility] 00:00:00 [facility] colon (procedure) [code = 839176828] Future Scheduled [address] [facility] 00:00:00 [facility] colon (procedure) [code = 336355565] Future Scheduled [address] [facility] 00:00:00 [facility] colon (procedure) [code = 377700755] Future Scheduled 1965 S[facility]oid[facility] [address] [facility] 00:00:00 (combo) [code = CT [facility] C enter Colonography (combo)] Future Scheduled [address] [facility] 00:00:00 [facility] colon (procedure) [code = 117974996] Future Scheduled [address] [facility] 00:00:00 [facility] colon (procedure) [code = 077466347] Future Scheduled [address] [facility] 00:00:00 [facility] colon (procedure) [code = 404711843] Future Scheduled [address] [facility] 00:00:00 [facility] colon (procedure) [code = 776132534] Future Scheduled 1965 [facility]oscopy [facility] [address] [facility] 00:00:00 (combo) [code = CT [facility] enter Colonography (combo)] Future Scheduled [address] [facility] 00:00:00 [facility] colon (procedure) [code = 501878138] Future Scheduled [address] [facility] 00:00:00 [facility] colon (procedure) [code = 456324834] Future Scheduled [address] [facility] 00:00:00 [facility] colon (procedure) [code = 910516447] Future Scheduled [address] [facility] 00:00:00 [facility] colon (procedure) [code = 729459516] Future Scheduled 1965 S[facility]oidoscopy [facility]] [facility] Future Scheduled [address] [facility] 00:00:00 (combo) [code = CT [facility] C enter Colonography (combo)] Future Scheduled [address] [facility] 00:00:00 [facility] colon (procedure) [code = 241953104] Future Scheduled [address] [facility] 00:00:00 [facility] colon (procedure) [code = 488577449] Future Scheduled [address] [facility] 00:00:00 [facility] colon (procedure) [code = 689701692] Future Scheduled [address] [facility] 00:00:00 [facility] colon (procedure) [code = 698990650] Future Scheduled 1965 S[facility]oidoscopy [facility]] [facility] Future Scheduled [address] [facility] 00:00:00 (combo) [code = CT [facility] enter Colonography (combo)] Future Scheduled [address] [facility] 00:00:00 [facility] colon (procedure) [code = 645140697] Future Scheduled [address] [facility] 00:00:00 [facility] colon (procedure) [code = 691623320] Future Scheduled [address] [facility] 00:00:00 [facility] colon (procedure) [code = 329415462] Future Scheduled [address] [facility] 00:00:00 [facility] colon (procedure) [code = 483602962] Future Scheduled 1965 S[facility]oidoscopy [facility]] [facility] Future Scheduled [address] [facility] 00:00:00 (combo) [code = CT [facility] enter Colonography (combo)] Future Scheduled [address] [facility] 00:00:00 [facility] colon (procedure) [code = 522238521] Future Scheduled [address] [facility] 00:00:00 [facility] colon (procedure) [code = 223152710] Future Scheduled [address] [facility] 00:00:00 [facility] colon (procedure) [code = 921777113] Future Scheduled [address] [facility] 00:00:00 [facility] colon (procedure) [code = 571805448] Future Scheduled 1965 [facility]oscopy [facility]] [facility] Future Scheduled [address] [facility] 00:00:00 (combo) [code = CT [facility] enter Colonography (combo)] Future Scheduled [address] [facility] 00:00:00 (combo) [code = CT [facility] enter Colonography (combo)] Future Scheduled [address] [facility] 00:00:00 [facility] colon (procedure) [code = 118530714] Future Scheduled [address] [facility] 00:00:00 [facility] colon (procedure) [code = 027677389] Future Scheduled [address] [facility] 00:00:00 [facility] colon (procedure) [code = 442929470] Future Scheduled [address] [facility] 00:00:00 [facility] colon (procedure) [code = 712117420] Future Scheduled [address] [facility] 00:00:00 [facility] colon (procedure) [code = 428099248] Future Scheduled 1965 S[facility]oidoscopy [facility]] [facility] Future Scheduled [address] [facility] 00:00:00 [facility] colon (procedure) [code = 007595154] Future Scheduled [address] [facility] 00:00:00 [facility] colon (procedure) [code = 129196348] Future Scheduled [address] [facility] 00:00:00 (combo) [code = CT [facility] enter Colonography (combo)] Future Scheduled [address] [facility] 00:00:00 [facility] colon (procedure) [code = 328674702] Future Scheduled [address] [facility] 00:00:00 [facility] colon (procedure) [code = 074625291] Future Scheduled [address] [facility] 00:00:00 [facility] colon (procedure) [code = 309425405] Future Scheduled [address] [facility]00 [facility] colon (procedure) [code = 761089427] Future Scheduled [address] [facility] 00:00:00 [facility] colon (procedure) [code = 142696585] Future Scheduled 1965 S[facility]oidoscopy [facility]] [facility] Scheduled 1965 [facility]oscopy [code [facility]] [facility] Future Scheduled [address] [facility] 00:00:00 (combo) [code = CT [facility] enter Colonography (combo)] Future Scheduled [address] [facility] 00:00:00 [facility] colon (procedure) [code = 295905101] Future Scheduled [address] [facility] 00:00:00 [facility] colon (procedure) [code = 278643513] Future Scheduled [address] [facility] 00:00:00 [facility] colon (procedure) [code = 603767462] Future Scheduled [address] [facility] 00:00:00 [facility] colon (procedure) [code = 669158761] Future Scheduled 1965 S[facility]oidoscopy [facility]] [facility] Future Scheduled [address] [facility] 00:00:00 (combo) [code = CT [facility] enter Colonography (combo)] Future Scheduled [address] [facility] 00:00:00 [facility] colon (procedure) [code = 741209208] Future Scheduled [address] [facility] 00:00:00 [facility] colon (procedure) [code = 642151826] Future Scheduled [address] [facility] 00:00:00 [facility] colon (procedure) [code = 209078748] Future Scheduled [address] [facility] 00:00:00 [facility] colon (procedure) [code = 150579282] Future Scheduled 1965 S[facility]oidoscopy [facility]] [facility] Future Scheduled [address] [facility] 00:00:00 (combo) [code = CT [facility] enter Colonography (combo)] Future Scheduled [address] [facility] 00:00:00 [facility] colon (procedure) [code = 856839907] Future Scheduled [address] [facility] 00:00:00 [facility] colon (procedure) [code = 916522277] Future Scheduled [address] [facility] 00:00:00 [facility] colon (procedure) [code = 532736822] Future Scheduled [address] [facility] 00:00:00 [facility] colon (procedure) [code = 125303888] Future Scheduled 1965 [facility] [code = 55087-9] Goal Plan of Care Note [code = 28771-4] Goal Plan of Care Note [code = 65373-0] Goal Plan of Care Note [code = 98627-3] Goal Plan of Care Note [code = 30864-3] Goal Plan of Care Note [code = 02497-8] Goal Plan of Care Note [code = 13623-0] Goal Plan of Care Note [code = 62568-7] Goal Plan of Care Note [code = 39908-9] Goal Plan of Care Note [code = 06148-1] Goal Plan of Care Note [code = 54583-6] Goal Plan of Care Note [code = 66085-1] Goal Plan of Care Note [code = 00805-3] Goal Plan of Care Note [code = 36262-5] Goal Plan of Care Note [code = 73307-8] Goal Plan of Care Note [code = 02983-2] Goal Plan of Care Note [code = 24177-6] Goal Plan of Care Note [code = 16634-8] Goal Plan of Care Note [code = 50012-1] Goal Plan of Care Note [code = 50381-5] Goal Plan of Care Note [code = 61637-2] Goal Plan of Care Note [code = 28520-7] Goal Plan of Care Note [code = 20527-5] Goal Plan of Care Note [code = 13594-1] Goal Plan of Care Note [code = 94945-2] Goal Plan of Care Note [code = 54054-3] Goal Plan of Care Note [code = 60218-7] Goal Plan of Care Note [code = 69697-8] Goal Plan of Care Note [code = 11878-0] Goal Plan of Care Note [code = 00608-3] Goal Plan of Care Note [code = 32815-9] Goal Plan of Care Note [code = 31501-1] Goal Plan of Care Note [code = 08936-0] Goal Plan of Care Note [code = 49571-4] Goal Plan of Care Note [code = 49848-6] Goal Plan of Care Note [code = 93905-9] Goal Plan of Care Note [code = 72994-7] Goal Plan of Care Note [code = 01743-4] Goal Plan of Care Note [code = 97792-2] Goal Plan of Care Note [code = 27358-2] Goal Plan of Care Note [code = 03901-5] Goal Plan of Care Note [code = 75339-7] Goal Plan of Care Note [code = 01517-7] Goal Plan of Care Note [code = 34173-5] Goal Plan of Care Note [code = 91199-4] Goal Plan of Care Note [code = 11534-2] Goal Plan of Care Note [code = 01388-8] Goal Plan of Care Note [code = 57598-1] Goal Plan of Care Note [code = 93145-2] Goal Plan of Care Note [code = 58665-3] Goal Plan of Care Note [code = 21960-4] Goal Plan of Care Note [code = 77026-7] Goal Plan of Care Note [code = 56153-4] Goal Plan of Care Note [code = 80663-7] Goal Plan of Care Note [code = 17101-3] Goal Plan of Care Note [code = 78867-9] Goal Plan of Care Note [code = 16927-3] Goal Plan of Care Note [code = 06473-8] Goal Plan of Care Note [code = 25827-6] Goal Plan of Care Note [code = 03360-8] Goal Plan of Care Note [code = 99824-1] Goal Plan of Care Note [code = 09616-2] Goal Plan of Care Note [code = 30512-2] Goal Plan of Care Note [code = 04023-0] Goal Plan of Care Note [code = 27349-8] Goal Plan of Care Note [code = 78760-9] Goal Plan of Care Note [code = 37834-1] Goal Plan of Care Note [code = 09178-2] Goal Plan of Care Note [code = 08510-2] Goal Plan of Care Note [code = 68377-5] Goal Plan of Care Note [code = 74075-5] Goal Plan of Care Note [code = 96880-7] Goal Plan of Care Note [code = 38824-3] Goal Plan of Care Note [code = 09782-1] Goal Plan of Care Note [code = 16352-6] Goal Plan of Care Note [code = 34839-9] Goal Plan of Care Note [code = 82782-5] Goal Plan of Care Note [code = 47846-5] Goal Plan of Care Note [code = 07049-3] Goal Plan of Care Note [code = 68096-6] Goal Plan of Care Note [code = 94948-4] Goal Plan of Care Note [code = 44107-6] Goal Plan of Care Note [code = 74291-9] Goal Plan of Care Note [code = 50037-6] Goal Plan of Care Note [code = 59998-3] Goal Plan of Care Note [code = 74306-5] Goal Plan of Care Note [code = 99532-0] Goal Plan of Care Note [code = 62064-4] Goal Plan of Care Note [code = 82167-2] Goal Plan of Care Note [code = 26212-4] Goal Plan of Care Note [code = 33354-1] Goal Plan of Care Note [code = 44912-3] Goal Plan of Care Note [code = 37638-0] Goal Plan of Care Note [code = 44620-4] Goal Plan of Care Note [code = 53517-2] Goal Plan of Care Note [code = 13019-0] Goal Plan of Care Note [code = 21081-8] Goal Plan of Care Note [code = 65003-8] Goal Plan of Care Note [code = 32674-0] Goal Plan of Care Note [code = 19095-9] Goal Plan of Care Note [code = 87057-0] Goal Plan of Care Note [code = 41799-5] Goal Plan of Care Note [code = 18715-0] Goal Plan of Care Note [code = 60864-3] Goal Plan of Care Note [code = 68003-5] Goal Plan of Care Note [code = 56337-5] Goal Plan of Care Note [code = 12064-3] Goal Plan of Care Note [code = 80513-6] Goal Plan of Care Note [code = 57189-4] Goal Plan of Care Note [code = 25143-7] Goal Plan of Care Note [code = 10914-7] Goal Plan of Care Note [code = 72034-4] Goal Plan of Care Note [code = 32251-6] Goal Plan of Care Note [code = 24418-4] Goal Plan of Care Note [code = 09743-7] Goal Plan of Care Note [code = 34358-6] Goal Plan of Care Note [code = 73968-9] Goal Plan of Care Note [code = 67894-1] Goal Plan of Care Note [code = 79553-9] Goal Plan of Care Note [code = 56313-7] Goal Plan of Care Note [code = 08221-0] Goal Plan of Care Note [code = 21740-7] Goal Plan of Care Note [code = 47549-9] Goal Plan of Care Note [code = 54577-9] Goal Plan of Care Note [code = 58120-2] Goal Plan of Care Note [code = 32932-9] Goal Plan of Care Note [code = 97017-1] Goal Plan of Care Note [code = 77547-2] Goal Plan of Care Note [code = 14942-6] Goal Plan of Care Note [code = 24235-9] Goal Plan of Care Note [code = 84073-8] Goal Plan of Care Note [code = 57391-1] Goal Plan of Care Note [code = 09754-6] Goal Plan of Care Note [code = 38252-2] Goal Plan of Care Note [code = 56625-3] Goal Plan of Care Note [code = 77646-6] Goal Plan of Care Note [code = 45618-0] Goal Plan of Care Note [code = 70311-5] Goal Plan of Care Note [code = 57000-3] Goal Plan of Care Note [code = 96315-9] Goal Plan of Care Note [code = 40164-5] Goal Plan of Care Note [code = 85524-8] Goal Plan of Care Note [code = 94075-9] Goal Plan of Care Note [code = 78236-7] Goal Plan of Care Note [code = 14432-9] Goal Plan of Care Note [code = 48055-2] Goal Plan of Care Note [code = 00641-6] Goal Plan of Care Note [code = 23152-1] Goal Plan of Care Note [code = 85072-7] Goal Plan of Care Note [code = 98589-5] Goal Plan of Care Note [code = 45108-4] Goal Plan of Care Note [code = 59442-9] Goal Plan of Care Note [code = 84845-5] Goal Plan of Care Note [code = 17196-3] Goal Plan of Care Note [code = 98472-5] Goal Plan of Care Note [code = 04885-8] Goal Plan of Care Note [code = 38004-4] Goal Plan of Care Note [code = 36237-2] Goal Plan of Care Note [code = 03958-9] Goal Plan of Care Note [code = 17368-1] Goal Plan of Care Note [code = 06246-5] Goal Plan of Care Note [code = 93332-1] Goal Plan of Care Note [code = 32897-9] Goal Plan of Care Note [code = 11319-8] Goal Plan of Care Note [code = 35281-5] Goal Plan of Care Note [code = 32692-4] Goal Plan of Care Note [code = 44236-8] Goal Plan of Care Note [code = 21180-6] Goal Plan of Care Note [code = 83243-3] Goal Plan of Care Note [code = 76588-4] Goal Plan of Care Note [code = 76572-7] Goal Plan of Care Note [code = 87492-8] Goal Plan of Care Note [code = 70536-3] Goal Plan of Care Note [code = 15450-8] Goal Plan of Care Note [code = 17841-8] Goal Plan of Care Note [code = 24984-7] Goal Plan of Care Note [code = 32043-3] Goal Plan of Care Note [code = 86068-4] Goal Plan of Care Note [code = 62690-1] Goal Plan of Care Note [code = 72048-0] Goal Plan of Care Note [code = 09655-0] Goal Plan of Care Note [code = 15868-5] Goal Plan of Care Note [code = 25391-5] Goal Plan of Care Note [code = 38878-1] Goal Plan of Care Note [code = 92427-5] Goal Plan of Care Note [code = 20130-0] Goal Plan of Care Note [code = 92635-5] Goal Plan of Care Note [code = 79030-2] Goal Plan of Care Note [code = 45770-1] Goal Plan of Care Note [code = 27968-2] Goal Plan of Care Note [code = 34630-8] Goal Plan of Care Note [code = 48943-9] Goal Plan of Care Note [code = 88270-9] Goal Plan of Care Note [code = 35476-9] Goal Plan of Care Note [code = 95798-3] Goal Plan of Care Note [code = 14147-1] Goal Plan of Care Note [code = 80227-8] Goal Plan of Care Note [code = 39786-2] Goal Plan of Care Note [code = 29858-3] Goal Plan of Care Note [code = 69343-3] Goal Plan of Care Note [code = 07153-4] Goal Plan of Care Note [code = 23739-6] Goal Plan of Care Note [code = 12316-0] Goal Plan of Care Note [code = 79387-3] Goal Plan of Care Note [code = 35885-7] Goal Plan of Care Note [code = 19275-7] Goal Plan of Care Note [code = 36153-2] Goal Plan of Care Note [code = 64558-5] Goal Plan of Care Note [code = 45803-2] Goal Plan of Care Note [code = 56234-0] Goal Plan of Care Note [code = 89453-6] Goal Plan of Care Note [code = 96460-8] Goal Plan of Care Note [code = 51559-4] Goal Plan of Care Note [code = 18501-8] Goal Plan of Care Note [code = 18318-5] Goal Plan of Care Note [code = 37047-8] Goal Plan of Care Note [code = 11456-8] Goal Plan of Care Note [code = 94743-5] Goal Plan of Care Note [code = 64041-7] Goal Plan of Care Note [code = 46772-5] Goal Plan of Care Note [code = 50017-4] Goal Plan of Care Note [code = 53285-9] Goal Plan of Care Note [code = 68974-9] Goal Plan of Care Note [code = 03176-6] Goal Plan of Care Note [code = 13544-6] Goal Plan of Care Note [code = 00759-7] Goal Plan of Care Note [code = 12933-8] Goal Plan of Care Note [code = 99441-8] Goal Plan of Care Note [code = 09314-1] Goal Plan of Care Note [code = 06326-6] Goal Plan of Care Note [code = 89792-1] Goal Plan of Care Note [code = 78237-8] Goal Plan of Care Note [code = 00067-8] Goal Plan of Care Note [code = 40321-8] Goal Plan of Care Note [code = 81267-7] Goal Plan of Care Note [code = 72570-5] Goal Plan of Care Note [code = 26386-3] Goal Plan of Care Note [code = 79009-7] Goal Plan of Care Note [code = 22083-6] Goal Plan of Care Note [code = 46006-3] Goal Plan of Care Note [code = 35573-5] Goal Plan of Care Note [code = 02083-3] Goal Plan of Care Note [code = 78264-7] Goal Plan of Care Note [code = 61762-6] Goal Plan of Care Note [code = 01627-9] Goal Plan of Care Note [code = 92193-8] Goal Plan of Care Note [code = 52487-5] Goal Plan of Care Note [code = 14721-1] Goal Plan of Care Note [code = 22321-2] Goal Plan of Care Note [code = 09172-8] Goal Plan of Care Note [code = 67977-3] Goal Plan of Care Note [code = 00097-8] Goal Plan of Care Note [code = 99267-6] Goal Plan of Care Note [code = 26493-8] Goal Plan of Care Note [code = 28388-6] Goal Plan of Care Note [code = 14138-6] Goal Plan of Care Note [code = 03314-9] Goal Plan of Care Note [code = 51063-3] Goal Plan of Care Note [code = 68839-1] Goal Plan of Care Note [code = 85226-1] Goal Plan of Care Note [code = 82773-2] Goal Plan of Care Note [code = 38935-5] Goal Plan of Care Note [code = 72975-0] Goal Plan of Care Note [code = 80755-4] Goal Plan of Care Note [code = 68514-4] Goal Plan of Care Note [code = 33304-7] Goal Plan of Care Note [code = 72934-7] Goal Plan of Care Note [code = 77824-9] Goal Plan of Care Note [code = 14598-6] Goal Plan of Care Note [code = 20826-8] Goal Plan of Care Note [code = 22969-7] Goal Plan of Care Note [code = 95935-9] Goal Plan of Care Note [code = 46207-3] Goal Plan of Care Note [code = 65413-0] Goal Plan of Care Note [code = 35871-2] Goal Plan of Care Note [code = 07373-4] Goal Plan of Care Note [code = 42000-5] Goal Plan of Care Note [code = 73658-0] Goal Plan of Care Note [code = 34521-7] Goal Plan of Care Note [code = 29213-3] Goal Plan of Care Note [code = 58001-9] Goal Plan of Care Note [code = 09160-7] Goal Plan of Care Note [code = 54908-5] Goal Plan of Care Note [code = 03009-8] Goal Plan of Care Note [code = 91512-7] Goal Plan of Care Note [code = 83647-8] Goal Plan of Care Note [code = 79604-9] Goal Plan of Care Note [code = 30310-8] Goal Plan of Care Note [code = 75964-4] Goal Plan of Care Note [code = 62872-8] Goal Plan of Care Note [code = 05958-1] Goal Plan of Care Note [code = 96536-3] Goal Plan of Care Note [code = 38932-9] Goal Plan of Care Note [code = 45837-5] Goal Plan of Care Note [code = 62257-5] Goal Plan of Care Note [code = 03706-9] Goal Plan of Care Note [code = 98119-2] Goal Plan of Care Note [code = 64908-1] Goal Plan of Care Note [code = 07502-7] Goal Plan of Care Note [code = 12681-0] Goal Plan of Care Note [code = 83078-0] Goal Plan of Care Note [code = 02391-6] Goal Plan of Care Note [code = 33143-3] Goal Plan of Care Note [code = 64968-1] Goal Plan of Care Note [code = 85097-5] Goal Plan of Care Note [code = 96964-2] Goal Plan of Care Note [code = 27306-1] Goal Plan of Care Note [code = 46967-9] Goal Plan of Care Note [code = 26134-0] Goal Plan of Care Note [code = 23905-5] Goal Plan of Care Note [code = 68948-8] Goal Plan of Care Note [code = 78901-1] Goal Plan of Care Note [code = 36245-6] Goal Plan of Care Note [code = 89815-2] Goal Plan of Care Note [code = 55958-0] Goal Plan of Care Note [code = 50531-8] Goal Plan of Care Note [code = 43004-0] Goal Plan of Care Note [code = 11141-1] Goal Plan of Care Note [code = 42946-1] Goal Plan of Care Note [code = 25463-9] Goal Plan of Care Note [code = 92168-6] Goal Plan of Care Note [code = 42543-8] Goal Plan of Care Note [code = 87491-7] Goal Plan of Care Note [code = 00641-2] Goal Plan of Care Note [code = 89767-1] Goal Plan of Care Note [code = 32220-2] Goal Plan of Care Note [code = 81610-1] Goal Plan of Care Note [code = 35856-6] Goal Plan of Care Note [code = 82861-2] Goal Plan of Care Note [code = 40697-1] Goal Plan of Care Note [code = 62070-6] Goal Plan of Care Note [code = 24589-8] Goal Plan of Care Note [code = 41710-7] Goal Plan of Care Note [code = 45609-6] Goal Plan of Care Note [code = 58325-2] Goal Plan of Care Note [code = 57023-0] Goal Plan of Care Note [code = 17006-0] Goal Plan of Care Note [code = 35826-0] Goal Plan of Care Note [code = 96851-5] Goal Plan of Care Note [code = 35711-8] Goal Plan of Care Note [code = 55753-6] Goal Plan of Care Note [code = 81909-7] Goal Plan of Care Note [code = 83405-0] Goal Plan of Care Note [code = 22584-8] Goal Plan of Care Note [code = 92492-8] Goal Plan of Care Note [code = 34040-4] Goal Plan of Care Note [code = 64024-6] Goal Plan of Care Note [code = 19362-3] Goal Plan of Care Note [code = 06879-6] Goal Plan of Care Note [code = 06528-1] Goal Plan of Care Note [code = 44985-0] Goal Plan of Care Note [code = 91254-5] Goal Plan of Care Note [code = 70900-7] Goal Plan of Care Note [code = 31668-2] Goal Plan of Care Note [code = 76363-5] Goal Plan of Care Note [code = 94386-7] Goal Plan of Care Note [code = 02459-8] Goal Plan of Care Note [code = 14804-1] Goal Plan of Care Note [code = 16040-2] Goal Plan of Care Note [code = 39211-9] Goal Plan of Care Note [code = 89133-3] Goal Plan of Care Note [code = 13440-6] Goal Plan of Care Note [code = 49524-4] Goal Plan of Care Note [code = 53441-4] Goal Plan of Care Note [code = 74054-6] Goal Plan of Care Note [code = 70703-4] Goal Plan of Care Note [code = 74589-5] Goal Plan of Care Note [code = 19964-9] Goal Plan of Care Note [code = 72538-6] Goal Plan of Care Note [code = 04355-5] Goal Plan of Care Note [code = 58436-3] Goal Plan of Care Note [code = 20441-3] Goal Plan of Care Note [code = 49632-4] Goal Plan of Care Note [code = 52321-5] Goal Plan of Care Note [code = 20854-2] Goal Plan of Care Note [code = 78662-5] Goal Plan of Care Note [code = 00440-9] Goal Plan of Care Note [code = 98169-2] Goal Plan of Care Note [code = 23449-9] Goal Plan of Care Note [code = 63752-0] Goal Plan of Care Note [code = 44918-9] Goal Plan of Care Note [code = 51494-8] Goal Plan of Care Note [code = 99040-7] Goal Plan of Care Note [code = 77737-0] Goal Plan of Care Note [code = 78945-5] Goal Plan of Care Note [code = 50132-9] Goal Plan of Care Note [code = 59191-0] Encounters Start End Encounter Admission Attending Care Care Encounter Source Date/Time Date/Time Type Type Clinicians Facility Department ID 2022-04-01 Outpatient 3 [id number] [facility] RE[facility] [id number] [facility] 15:21:07 [facility] [place] 2022-03-31 Outpatient 3 [id number] [facility] REF [id number] [facility] 14:48:02 [facility] [place] 2022-03-25 Outpatient 3 [id number] [facility] REF [id number] [facility] 10:48:24 [facility] [place] 2021-02-05 Outpatient BHARAT, [facility] [id number] [facility] 05:27:44 IRMA 2021-02-04 Outpatient ALAM, [facility] Surgery [id number] [facility] 23:01:57 SYLVAIN 2022-06-09 2022-06-09 Outpatient Rayne FERNANDEZ, [facility] [id number] Univers 13:30:00 13:30:00 [place] ity of [facility] 2022-05-28 2022-05-28 Outpatient CASS SFA 10502-5 023 [place] 09:36:19 09:36:19 0126 F Martínez 2022-05-28 2022-05-28 Orders Doctor BRIANNE 1.2.840.114 [id number] Univers 00:00:00 00:00:00 Only Unassigned, RONNY 350.1.13.10 ity of [place] [facility] 4.2.7.2.686 Tony as [phone] [address] 2022-04-23 2022-04-23 Outpatient CASS SFA 23719-7 022 [place] 11:12:51 11:12:51 1222 F Martínez 2022-04-23 2022-04-23 Outpatient [id number]- [id number] 061ng9-3 00:00:00 00:00:00 Visit 7f41-492h s28-583f-5 -8818-496 818-432867 5392246z7 6681f3 2022-04-22 2022-04-22 Outpatient SFA SFA 95975-2 022 [place] 11:56:37 11:56:37 1221 F Martínez 2022-04-21 2022-04-21 Outpatient KEKE RODRIGUEZ ENCCLR ENCCLR [id number] ENCCLR 00:00:00 00:00:00 ADMISSION JACINTO MARTIN 2022-04-20 2022-04-20 Outpatient SFA SFA [id number] 022 [place] 13:44:26 13:44:26 1219 F Martínez 2022-04-20 2022-04-20 Outpatient sj08879t- [id number] fa 86906p-5 00:00:00 00:00:00 Visit 868d-4ba4 68d-4ba4-8 -857d-890 57d-8900b2 1s689583n 47799v 2022-04-07 2022-04-17 Inpatient 3 Mike-San [facility] OTH 5814 [facility] 18:25:00 16:40:00 jennifer, 1206 [facility] 2022-03-17 2022-03-17 Outpatient SFA SFA 93924-8 022 [place] 09:09:19 09:09:19 1115 F Martínez 2022-03-17 2022-03-17 Outpatient [id number]- [id number] jo913k-p 00:00:00 00:00:00 Visit o908-8537 106-4636-b -t8dh-240 5be-547ae2 vn578gna6 86dad8 2022-03-04 2022-03-04 Outpatient SFA SFA 12153-9 022 [place] 13:56:07 13:56:07 1102 F Martínez 2022-03-04 2022-03-04 Outpatient l61489uz- [id number] c2 7246be-9 00:00:00 00:00:00 Visit 9529-42f7 529-42f7-a -aq94-yp5 l69-ek332v 08r8ex7e5 5cb7c5 2022-02-24 2022-02-[address] [facility] [id number] 00:00:00 00:00:00 [facility] 2022-02-24 2022-02-[address] [facility] [id number] 00:00:00 00:00:00 [facility] 2022-02-17 2022-02-17 Outpatient [facility] 56091-4 022 [place] 14:09:24 14:09:24 1018 F Martínez 2022-02-17 2022-02-17 Outpatient [id number]- [id number] gw168p-l 00:00:00 00:00:00 Visit k22h-32w1 39e-47c5-b -w0l0-7kc 9n7-0ugj2p y0n866457 941992 8840-10-04 2022-02-03 Outpatient [facility] 81288-4 022 [place] 13:41:10 13:41:10 1004 F Martínez 2022-02-03 2022-02-03 Outpatient [id number] 172837-9 00:00:00 00:00:00 Visit 4378-45d4 378-45d4-b -uu4e-033 w1i-2660s5 2c84450mn 0427fc 2021-12-23 2021-12-23 Familia Fernandez ARKALEIGH 1.2.633.300 [id number] Univers 00:00:00 00:00:00 [facility] 350.1.13.10 it y of [place] 4.2.7.2.686 Tony as CAR?BLEA [id number] [address] MEDICAL OFFICE BUILDING 2021-12-04 2021-12-04 Outpatient [id number]- [id number] 498d00-7 00:00:00 00:00:00 Visit 72f8-5o54 5v2-0u12-9 -38r9-b4q 7z7-x0bqa6 md6887h24 255c45 2021-12-02 2021-12-02 Outpatient R KHOA [facility] [id number] Univers 16:00:00 16:00:00 [facility] 2021-12-02 2021-12-02 Psychiatric Clinician Lab, Ang - Db RUST 1.2.840.1 14 [id number] Univers 15:15:00 15:16:31 Visit Khoa [facility] 350.1.13.10 ity of [place] 4.2.7.2.686 Tony as CAR?BLEA [id number] [facility] [address] OFFICE [facility] 2021-12-02 2021-12-02 [facility] [id number] Univers 14:30:00 14:57:05 [facility] 2021-12-02 2021-12-02 [facility] 1.2.840.114 [id number] Univers 14:30:00 14:57:05 Visit [facility] 350..13.10 it y of [place] 4.2.7.2.686 Tony as CAR?BLEA [id number] [address] 2021-12-02 2021-12-02 Outpatient [id number]- [id number] 0a8543-7 00:00:00 00:00:00 Visit 2ct1-3420 db2-4873-a -i7a2-480 9d4-7632z0 3z97m34n8 1f79f2 2021-11-26 2021-11-26 [facility] [id number] Univers 14:00:00 14:00:00 [facility] 2021-10-21 2021-10-21 [facility] [id number] Univers 14:30:00 14:30:00 [facility] 2021-07-29 2021-07-29 Telephone [facility] 1.2.295.965 [id number] Univers 00:00:00 00:00:00 [facility] 350..13.10 it y of [place] 4.2.7.2.686 Tony as CAR?BLEA [id number] [address] OFFICE [facility] 2021-07-15 2021-07-15 Outpatient R KHOA, [facility] [id number] Univers 09:30:00 10:12:40 JOSELUIS ity of [facility] 2021-07-15 2021-07-15 Office Fernandez, RUST 1.2.840.114 [id number] Univers 09:30:00 10:12:40 Visit [facility] 350.1.13.10 [facility] 4.2.7.2.686 Tony as CAR?BLEA [phone] [facility] [address] MEDICAL OFFICE BUILDING 2021-03-06 2021-03-06 [facility] Radiology RUST 1.2.840.114 [id number] Univers 12:24:35 23:59:00 Encounter [place] 350.1.13.10 [facility] [place] [id number] [facility] [address] 2021-03-06 2021-03-06 Hospital Radiology RUST 1.2.840.114 [id number] Univers 12:23:40 12:23:40 Encounter [place] 350.1.13.10 [facility] [place] [id number] [address] 2021-03-06 2021-03-06 Outpatient R RADIOLOGY [facility] [id number] Univers 12:23:40 12:23:40 ity of [facility] 2021-03-06 2021-03-06 Outpatient R RADIOLOGY [facility] [id number] Univers 12:23:40 12:23:40 ity of [facility] 2021-02-27 2021-02-27 Outpatient R RADIOLOGY [facility] [id number] Univers 00:00:00 00:00:00 ity of [facility] 2021-02-27 2021-02-27 Outpatient R RADIOLOGY [facility] [id number] Univers 00:00:00 00:00:00 ity of [facility] 2021-02-13 2021-02-[address] MaikelFabiana [id number] [facility] 00:00:00 00:00:00 ion Shantel [facility] 2021-02-03 2021-02-03 Orders Doctor BRIANNE 1.2.840.114 [id number] Univers 00:00:00 00:00:00 Only Unassigned, RONNY 350.1.13.10 [facility] [place] [facility] 4.2.7.2.686 Tony as [phone] [address] 2020-11-22 2020-11-22 [facility] [id number] Univers 13:00:00 13:00:00 SAM stewart [facility] 2020-10-08 2020-10-08 Telephone [facility] 1.2.840.114 [id number] 00:00:00 00:00:00 Sam Doherty 350.1.13.10 [place] 4.2.7.2.686 Professio [id number] [facility] 220 [facility] 2020-10-07 2020-10-07 Orders Doctor DECKER 1.2.840.114 [id number] 00:00:00 00:00:00 Only Unassigned, RONNY 350.1.13.10 [facility] 4.2.7.2.686 [id number] [facility] 2020-10-04 2020-10-04 [facility] [id number] Univers 14:00:00 14:00:00 SAM dave [facility] 2020-09-19 2020-09-19 [facility] [id number] Univers 11:00:00 11:00:00 DEAN sheffield [facility] 2020-09-10 2020-09-10 [facility] [id number] Univers 10:00:00 10:00:00 DEAN sheffield [facility] 2020-08-20 2020-08-20 Office [facility] 1.2.840.114 [id number] 13:15:09 13:42:21 Visit Dean Doherty 350.1.13.10 [place] 4.2.7.2.686 Professio [id number] nal 059 [facility] 2020-08-20 2020-08-20 [facility] [id number] Univers 13:20:00 13:20:00 QIANGJUN ity o f [facility] 2019-12-14 2019-12-14 Outpatient SLEH [facility] [id number] [facility] 00:00:00 00:00:00 2019-11-14 2019-11-14 Outpatient EL GIPSON, [facility] [id number] [facility] 00:00:00 00:00:00 HUNTER 2019-11-14 2019-11-14 Outpatient SLEH SLEH [id number] [facility] 00:00:00 00:00:00 2019-11-14 2019-11-14 Outpatient EL SLEH SLEH [id number] [facility] 00:00:00 00:00:00 2019-10-31 2019-10-31 Outpatient SLEH SLEH [id number] [facility] 00:00:00 00:00:00 2019-10-31 2019-10-31 Outpatient SLEH SLEH [id number] [facility] 00:00:00 00:00:00 2019-10-17 2019-10-17 Outpatient SLEH SLEH [id number] [facility] 00:00:00 00:00:00 2019-10-17 2019-10-17 Outpatient EL SLE[facility] SLEH [id number] [facility] 00:00:00 00:00:00 2019-07-13 2019-07-13 Outpatient [facility]H [facility] [id number] 2-2 [facility] 00:00:00 00:00:00 [id number] 2019-06-15 2019-06-15 Outpatient SLEH [facility] [id number] 2-2 [facility] 00:00:00 00:00:00 [id number] Results Test Description Test Time Test Comments Results Result Comments Source TSH, THIRD GENERATION 2022-04-23 06:32:46 Test Item Value Reference Range Interpretation Comme nts TSH, THIRD GENERATION (test code = 2821) >100.000 UIU/ML 0.400-4.10 0 H PSA, [id number] 06:32:46 Test Item Value Reference Range Interpretation Comments PSA, TOTAL 0.57 NG/ML See_Comment NOTE: Methodol ogy is Ezio (test code = Radhika Electroch emiluminescence 2606) Immunoassay tra ceable to WHO reference stand rea 96/760. UNLESS OTHERWIS E INDICATED, ALL TESTING PERFORM [facility] [address] [place] [address] LABORATORY DIRE CTOR: LATOYA MCCALL M.D. CLIA NUMBER [id number] [place]. [id number] [A utomated message] The sy stem which generated this result transmitted ref erence range: <=4.00. The ref erence range was not used to int erpret this result as ryne l/abnormal. COMPREHENSIVE METABOLIC [id number] 04:57:27 Test Item Value Reference Range Interpretation Comments GLUCOSE (test code = 204 MG/DL 70-99 H 2216) BUN (test code = 17 MG/DL 6-20 2207) CREATININE (test 5.58 MG/DL 0.80-1.40 H code = 221) eGFR (2020 CKD-EPI) 11 ML/MIN/1.73 >60 L (test code = 75812) CALC BUN/CREAT (test 3 RATIO 6-28 L code = 2235) SODIUM (test code = 143 MEQ/L 937-170 4169) POTASSIUM (test code 3.8 MEQ/L 3.5-5.4 = 2227) CHLORIDE (test code 98 MEQ/L 95-107 = 2215) CARBON DIOXIDE (test 29 MEQ/L 19-31 code [...] code = 15 U/L 5-50 2218) HEMOGLOBIN [id number] 03:24:27 Test Item Value Reference Range Interpretation Comments HEMOGLOBIN A1c (test code = 47055) 5.8 % 4.2-5.6 H CBC W/AUTO DIFF WITH [id number] 03:19:43 Test Item Value Reference Range Interpretation [...] RBCS 0.00 K/UL 0.00-0.11 (test code = 40800) CBC W/AUTO [id number] 00:00:00 Test Item Value Reference Range Interpretation [...] NUCLEATED RBCS (test code = 0.00 K/UL 01547) CBC W/AUTO [id number] 00:00:00 Test Item Value Reference Range Interpretation [...] NUCLEATED RBCS (test code = 0.00 K/UL 12775) CBC W/AUTO [id number] 00:00:00 Test Item Value Reference Range Interpretation [...] NUCLEATED RBCS (test code = 0.00 K/UL 31276) HEMOGLOBIN [id number] 00:00:00 Test Item Value Reference Range Interpretation Comments HEMOGLOBIN A1c (test code = 54791) 5.8 % HEMOGLOBIN [id number] 00:00:00 Test Item Value Reference Range Interpretation Comments HEMOGLOBIN A1c (test code = 24450) 5.8 % HEMOGLOBIN [id number] 00:00:00 Test Item Value Reference Range Interpretation Comments HEMOGLOBIN A1c (test code = 06577) 5.8 % COMPREHENSIVE METABOLIC [id number] 00:00:00 Test Item Value Reference Range Interpretation Comments GLUCOSE (test code = 2217) 204 MG/DL BUN (test code = 2208) 17 MG/DL CREATININE (test code = 2214) 5.58 MG/DL eGFR (2020 CKD-EPI) (test code 11 ML/MIN/1.73 = 97191) CALC BUN/CREAT (test code = 3 RATIO 5) SODIUM (test code = 2231) 143 MEQ/L [...] code = 2219) 15 U/L COMPREHENSIVE METABOLIC [id number] 00:00:00 Test Item Value Reference Range Interpretation Comments GLUCOSE (test code = 2217) 204 MG/DL BUN (test code = 2208) 17 MG/DL CREATININE (test code = 2214) 5.58 MG/DL eGFR (2020 CKD-EPI) (test code 11 ML/MIN/1.73 = 09658) CALC BUN/CREAT (test code = 3 RATIO 2234) SODIUM (test code = 2231) 143 MEQ/L POTASSIUM (test code = 2228) 3.8 MEQ/L CHLORIDE (test code = 2215) 98 MEQ/L CARBON DIOXIDE (test code = 29 MEQ/L 2205) CALCIUM (test code = 2209) 8.7 MG/DL PROTEIN, TOTAL (test code = 7.0 G/DL 2228) ALBUMIN (test code = 220) 4.4 G/DL CALC GLOBULIN (test code = 2.6 G/DL 2239) CALC A/G RATIO (test code = 1.7 RATIO 2233) BILIRUBIN, TOTAL (test code = <0.2 MG/DL 2206) ALKALINE PHOSPHATASE (test 72 U/L code = 220) AST (test code = 2218) 18 U/L ALT (test code = 2219) 15 U/L TSH, THIRD [id number] 00:00:00 Test Item Value Reference Range Interpretation Comments TSH, THIRD GENERATION (test >100.000 UIU/ML code = 2821) TSH, THIRD [id number] 00:00:00 Test Item Value Reference Range Interpretation Comments TSH, THIRD GENERATION (test >100.000 UIU/ML code = 2821) TSH, THIRD [id number] 00:00:00 Test Item Value Reference Range Interpretation Comments TSH, THIRD GENERATION (test >100.000 UIU/ML code = 2821) PSA, [id number] 00:00:00 Test Item Value Reference Range Interpretation Comments PSA, TOTAL (test code = 2606) 0.57 NG/ML PSA, [id number] 00:00:00 Test Item Value Reference Range Interpretation Comments PSA, TOTAL (test code = 2606) 0.57 NG/ML PSA, [id number] 00:00:00 Test Item Value Reference Range Interpretation Comments PSA, TOTAL (test code = 2606) 0.57 NG/ML CBC W/AUTO DIFF WITH [id number] 09:42:23 Test Item Value Reference Range Interpretation [...] RBCS 0.00 K/UL 0.00-0.11 (test code = 63705) HEMOGLOBIN [id number] 09:27:39 Test Item Value Reference Range Interpretation Comments HEMOGLOBIN A1c (test code = 76034) 6.2 % 4.2-5.6 H TSH, THIRD [id number] 06:43:39 Test Item Value Reference Range Interpretation Comments TSH, THIRD GENERATION (test 82.000 UIU/ML 0.400-4.100 H code = 2821) HIV 1/2 4TH GEN, RFLX [id number] 05:21:13 Test Item Value Reference Range Interpretation Comments HIV 1/2 4TH GEN, RFLX CONF (test NON-REACTIVE NON-REACTIVE code = 3514) HEPATITIS PANEL, [id number] 05:21:13 Test Item Value Reference Range Interpretation Comments HEPATITIS A IgM (test NON-REACTIVE NON-REACTIVE code = 10438) HEPATITIS B CORE IgM NON-REACTIVE NON-REACTIVE (test code = 4644) HEPATITIS B SURF AG NON-REACTIVE NON-REACTIVE (test code = 2739) HEPATITIS C ANTIBODY NON-REACTIVE NON-REACTIVE (test code = 4675) INTERPRETATION (NOTE) Hepatitis A HEPATITIS A: (test serology shows no code = 2552) evidence of acu te hepatitis A. INTERPRETATION (NOTE) Hepatitis B HEPATITIS B: (test serology shows no code = 07269) evidence of ac marty hepatitis B and no indication of exposure to hepatitis B vir us in the previous si xto eight months. INTERPRETATION (NOTE) Hepatitis C HEPATITIS C: (test serology shows no code = 24291) evidence of ex posure to hepatitisC v irus at this time. I t can take up to 12 m onths after exposure tothe hepatitis C vir us for antibodies to become detectab le in the blood in ce rtain patients. UNLES S OTHERWISE INDIC ATED, ALL TESTING PERFORMED [facility]. [address] [place] [id number] [place] [address] DIRECTOR: LATOYA MCCALL M.D. CLIA NUMBER [id number] [place] [id number] COMPREHENSIVE METABOLIC [id number] 03:30:59 Test Item Value Reference Range Interpretation Comments GLUCOSE (test code = 117 MG/DL 70-99 H 2216) BUN (test code = 54 MG/DL 6-20 H 2207) CREATININE (test 11.27 MG/DL 0.80-1.40 H code = 2214) eGFR (2020 CKD-EPI) 5 ML/MIN/1.73 >60 L (test code = 78480) CALC BUN/CREAT (test 5 RATIO 6-28 L code = 2235) SODIUM (test code = 139 MEQ/L 329-450 5607) POTASSIUM (test code 4.2 MEQ/L 3.5-5.4 = 2228) CHLORIDE (test code 95 MEQ/L 95-107 = 2215) CARBON DIOXIDE (test 23 MEQ/L 19-31 code [...] (test code = 8 U/L 5-50 2218) LIPID [id number] 03:30:59 Test Item Value Reference Range Interpretation [...] MOREINFORMATION , SEE CLIENT ANNOUNCE MENT AT [email or web address] CalcLDL-C RISK RATIO LDL/HDL (NOTE) RATIO <3.55 UNABLE TO CALCULATE (test code = 2238) CBC W/AUTO [id number] 00:00:00 Test Item Value Reference Range Interpretation [...] NUCLEATED RBCS (test code = 0.00 K/UL 90933) CBC W/AUTO [id number] 00:00:00 Test Item Value Reference Range Interpretation [...] NUCLEATED RBCS (test code = 0.00 K/UL 09031) CBC W/AUTO [id number] 00:00:00 Test Item Value Reference Range Interpretation [...] NUCLEATED RBCS (test code = 0.00 K/UL 06601) HEMOGLOBIN [id number] 00:00:00 Test Item Value Reference Range Interpretation Comments HEMOGLOBIN A1c (test code = 30462) 6.2 % HEMOGLOBIN [id number] 00:00:00 Test Item Value Reference Range Interpretation Comments HEMOGLOBIN A1c (test code = 94713) 6.2 % HEMOGLOBIN [id number] 00:00:00 Test Item Value Reference Range Interpretation Comments HEMOGLOBIN A1c (test code = 98996) 6.2 % LIPID [id number] 00:00:00 Test Item Value Reference Range Interpretation Comments CHOLESTEROL (test code = 2210) 196 MG/DL TRIGLYCERIDES (test code = 2232) 486 MG/DL HDL CHOLESTEROL (test code = 44 MG/DL 2220) CALC LDL CHOL (test code = 2237) (NOTE) MG/DL RISK RATIO LDL/HDL (test code = (NOTE) RATIO 2238) LIPID [id number] 00:00:00 Test Item Value Reference Range Interpretation Comments CHOLESTEROL (test code = 2210) 196 MG/DL TRIGLYCERIDES (test code = 2232) 486 MG/DL HDL CHOLESTEROL (test code = 44 MG/DL 2220) CALC LDL CHOL (test code = 2237) (NOTE) MG/DL RISK RATIO LDL/HDL (test code = (NOTE) RATIO 2238) COMPREHENSIVE METABOLIC [id number] 00:00:00 Test Item Value Reference Range Interpretation Comments GLUCOSE (test code = 2217) 117 MG/DL BUN (test code = 2208) 54 MG/DL CREATININE (test code = 2214) 11.27 MG/DL eGFR (2020 CKD-EPI) (test code 5 ML/MIN/1.73 = 95309) CALC BUN/CREAT (test code = 5 RATIO [...] code = 2219) 8 U/L COMPREHENSIVE METABOLIC [id number] 00:00:00 Test Item Value Reference Range Interpretation Comments GLUCOSE (test code = 2217) 117 MG/DL BUN (test code = 2208) 54 MG/DL CREATININE (test code = 2214) 11.27 MG/DL eGFR (2020 CKD-EPI) (test code 5 ML/MIN/1.73 = 75500) CALC BUN/CREAT (test code = 5 RATIO [...] ALT (test code = 2219) 8 U/L [id number] 00:00:00 Test Item Value Reference Range Interpretation Comments TSH, THIRD GENERATION (test 82.000 UIU/ML code = 2821) [id number] 00:00:00 Test Item Value Reference Range Interpretation Comments TSH, THIRD GENERATION (test 82.000 UIU/ML code = 2821) [id number] 00:00:00 Test Item Value Reference Range Interpretation Comments TSH, THIRD GENERATION (test 82.000 UIU/ML code = 2821) HIV AB/AG COMBO RFLX [id number] 00:00:00 Test Item Value Reference Range Interpretation Comments HIV 1/2 4TH GEN, RFLX CONF (test NON-REACTIVE code = 3514) HIV AB/AG COMBO RFLX [id number] 00:00:00 Test Item Value Reference Range Interpretation Comments HIV 1/2 4TH GEN, RFLX CONF (test NON-REACTIVE code = 3514) ACUTE HEPATITIS [id number] 00:00:00 Test Item Value Reference Range Interpretation Comments HEPATITIS A IgM (test code = NON-REACTIVE 83924) HEPATITIS B CORE IgM (test code NON-REACTIVE = 4644) HEPATITIS B SURF AG (test code = NON-REACTIVE 2739) HEPATITIS C ANTIBODY (test code NON-REACTIVE = 4675) INTERPRETATION HEPATITIS A: (NOTE) (test code = 2552) INTERPRETATION HEPATITIS B: (NOTE) (test code = 33703) INTERPRETATION HEPATITIS C: (NOTE) (test code = 82473) ACUTE HEPATITIS [id number] 00:00:00 Test Item Value Reference Range Interpretation Comments HEPATITIS A IgM (test code = NON-REACTIVE 87498) HEPATITIS B CORE IgM (test code NON-REACTIVE = 4644) HEPATITIS B SURF AG (test code = NON-REACTIVE 2739) HEPATITIS C ANTIBODY (test code NON-REACTIVE = 4675) INTERPRETATION HEPATITIS A: (NOTE) (test code = 2552) INTERPRETATION HEPATITIS B: (NOTE) (test code = 82911) INTERPRETATION HEPATITIS C: (NOTE) (test code = 18021) CBC W/AUTO [id number] 00:00:00 Test Item Value Reference Range Interpretation [...] NUCLEATED RBCS (test code = 0.00 K/UL 70011) CBC W/AUTO [id number] 00:00:00 Test Item Value Reference Range Interpretation [...] NUCLEATED RBCS (test code = 0.00 K/UL 71362) CBC W/AUTO [id number] 00:00:00 Test Item Value Reference Range Interpretation [...] NUCLEATED RBCS (test code = 0.00 K/UL 57585) HEMOGLOBIN [id number] 00:00:00 Test Item Value Reference Range Interpretation Comments HEMOGLOBIN A1c (test code = 22170) 6.2 % HEMOGLOBIN [id number] 00:00:00 Test Item Value Reference Range Interpretation Comments HEMOGLOBIN A1c (test code = 80835) 6.2 % HEMOGLOBIN [id number] 00:00:00 Test Item Value Reference Range Interpretation Comments HEMOGLOBIN A1c (test code = 18778) 6.2 % LIPID [id number] 00:00:00 Test Item Value Reference Range Interpretation Comments CHOLESTEROL (test code = 2210) 196 MG/DL TRIGLYCERIDES (test code = 2232) 486 MG/DL HDL CHOLESTEROL (test code = 44 MG/DL 2220) CALC LDL CHOL (test code = 2237) (NOTE) MG/DL RISK RATIO LDL/HDL (test code = (NOTE) RATIO 2238) LIPID [id number] 00:00:00 Test Item Value Reference Range Interpretation Comments CHOLESTEROL (test code = 2210) 196 MG/DL TRIGLYCERIDES (test code = 2232) 486 MG/DL HDL CHOLESTEROL (test code = 44 MG/DL 2219) CALC LDL CHOL (test code = 2237) (NOTE) MG/DL RISK RATIO LDL/HDL (test code = (NOTE) RATIO 2238) COMPREHENSIVE METABOLIC [id number] 00:00:00 Test Item Value Reference Range Interpretation Comments GLUCOSE (test code = 2217) 117 MG/DL BUN (test code = 2208) 54 MG/DL CREATININE (test code = 2214) 11.27 MG/DL eGFR (2020 CKD-EPI) (test code 5 ML/MIN/1.73 = 61444) CALC BUN/CREAT (test code = 5 RATIO [...] code = 2219) 8 U/L COMPREHENSIVE METABOLIC [id number] 00:00:00 Test Item Value Reference Range Interpretation Comments GLUCOSE (test code = 2217) 117 MG/DL BUN (test code = 2208) 54 MG/DL CREATININE (test code = 2214) 11.27 MG/DL eGFR (2020 CKD-EPI) (test code 5 ML/MIN/1.73 = 96648) CALC BUN/CREAT (test code = 5 RATIO [...] = 0.3 MG/DL 220) ALKALINE PHOSPHATASE (test code 70 U/L = 2204) AST (test code = 2218) 6 U/L ALT (test code = 2219) 8 U/L [id number] 00:00:00 Test Item Value Reference Range Interpretation Comments TSH, THIRD GENERATION (test 82.000 UIU/ML code = 2821) [id number] 00:00:00 Test Item Value Reference Range Interpretation Comments TSH, THIRD GENERATION (test 82.000 UIU/ML code = 2821) [id number] 00:00:00 Test Item Value Reference Range Interpretation Comments TSH, THIRD GENERATION (test 82.000 UIU/ML code = 2821) HIV AB/AG COMBO RFLX [id number] 00:00:00 Test Item Value Reference Range Interpretation Comments HIV 1/2 4TH GEN, RFLX CONF (test NON-REACTIVE code = 3514) HIV AB/AG COMBO RFLX [id number] 00:00:00 Test Item Value Reference Range Interpretation Comments HIV 1/2 4TH GEN, RFLX CONF (test NON-REACTIVE code = 3514) ACUTE HEPATITIS [id number] 00:00:00 Test Item Value Reference Range Interpretation Comments HEPATITIS A IgM (test code = NON-REACTIVE 49179) HEPATITIS B CORE IgM (test code NON-REACTIVE = 4644) HEPATITIS B SURF AG (test code = NON-REACTIVE 2739) HEPATITIS C ANTIBODY (test code NON-REACTIVE = 4675) INTERPRETATION HEPATITIS A: (NOTE) (test code = 2552) INTERPRETATION HEPATITIS B: (NOTE) (test code = 35522) INTERPRETATION HEPATITIS C: (NOTE) (test code = 96326) ACUTE HEPATITIS [id number] 00:00:00 Test Item Value Reference Range Interpretation Comments HEPATITIS A IgM (test code = NON-REACTIVE 59298) HEPATITIS B CORE IgM (test code NON-REACTIVE = 4644) HEPATITIS B SURF AG (test code = NON-REACTIVE 2739) HEPATITIS C ANTIBODY (test code NON-REACTIVE = 4675) INTERPRETATION HEPATITIS A: (NOTE) (test code = 2552) INTERPRETATION HEPATITIS B: (NOTE) (test code = 20819) INTERPRETATION HEPATITIS C: (NOTE) (test code = 25355) CBC W/AUTO [id number] 00:00:00 Test Item Value Reference Range Interpretation [...] NUCLEATED RBCS (test code = 0.00 K/UL 87663) CBC W/AUTO [id number] 00:00:00 Test Item Value Reference Range Interpretation [...] NUCLEATED RBCS (test code = 0.00 K/UL 00311) CBC W/AUTO [id number] 00:00:00 Test Item Value Reference Range Interpretation [...] NUCLEATED RBCS (test code = 0.00 K/UL 82445) CBC W/AUTO [id number] 00:00:00 Test Item Value Reference Range Interpretation [...] NUCLEATED RBCS (test code = 0.00 K/UL 01009) CBC W/AUTO [id number] 00:00:00 Test Item Value Reference Range Interpretation [...] NUCLEATED RBCS (test code = 0.00 K/UL 23558) HEMOGLOBIN [id number] 00:00:00 Test Item Value Reference Range Interpretation Comments HEMOGLOBIN A1c (test code = 93193) 6.2 % HEMOGLOBIN [id number] 00:00:00 Test Item Value Reference Range Interpretation Comments HEMOGLOBIN A1c (test code = 64083) 6.2 % HEMOGLOBIN [id number] 00:00:00 Test Item Value Reference Range Interpretation Comments HEMOGLOBIN A1c (test code = 61734) 6.2 % LIPID [id number] 00:00:00 Test Item Value Reference Range Interpretation Comments CHOLESTEROL (test code = 2210) 196 MG/DL TRIGLYCERIDES (test code = 2232) 486 MG/DL HDL CHOLESTEROL (test code = 44 MG/DL 2220) CALC LDL CHOL (test code = 2237) (NOTE) MG/DL RISK RATIO LDL/HDL (test code = (NOTE) RATIO 2238) LIPID [id number] 00:00:00 Test Item Value Reference Range Interpretation Comments CHOLESTEROL (test code = 2210) 196 MG/DL TRIGLYCERIDES (test code = 2232) 486 MG/DL HDL CHOLESTEROL (test code = 44 MG/DL 2220) CALC LDL CHOL (test code = 2237) (NOTE) MG/DL RISK RATIO LDL/HDL (test code = (NOTE) RATIO 2238) COMPREHENSIVE METABOLIC [id number] 00:00:00 Test Item Value Reference Range Interpretation Comments GLUCOSE (test code = 2217) 117 MG/DL BUN (test code = 2208) 54 MG/DL CREATININE (test code = 2214) 11.27 MG/DL eGFR (2020 CKD-EPI) (test code 5 ML/MIN/1.73 = 71922) CALC BUN/CREAT (test code = 5 RATIO [...] code = 2219) 8 U/L COMPREHENSIVE METABOLIC [id number] 00:00:00 Test Item Value Reference Range Interpretation Comments GLUCOSE (test code = 2217) 117 MG/DL BUN (test code = 2208) 54 MG/DL CREATININE (test code = 2214) 11.27 MG/DL eGFR (2020 CKD-EPI) (test code 5 ML/MIN/1.73 = 43982) CALC BUN/CREAT (test code = 5 RATIO [...] ALT (test code = 2219) 8 U/L [id number] 00:00:00 Test Item Value Reference Range Interpretation Comments TSH, THIRD GENERATION (test 82.000 UIU/ML code = 2821) [id number] 00:00:00 Test Item Value Reference Range Interpretation Comments TSH, THIRD GENERATION (test 82.000 UIU/ML code = 2821) [id number] 00:00:00 Test Item Value Reference Range Interpretation Comments TSH, THIRD GENERATION (test 82.000 UIU/ML code = 2821) HIV AB/AG COMBO RFLX [id number] 00:00:00 Test Item Value Reference Range Interpretation Comments HIV 1/2 4TH GEN, RFLX CONF (test NON-REACTIVE code = 3514) HIV AB/AG COMBO RFLX [id number] 00:00:00 Test Item Value Reference Range Interpretation Comments HIV 1/2 4TH GEN, RFLX CONF (test NON-REACTIVE code = 3514) ACUTE HEPATITIS [id number] 00:00:00 Test Item Value Reference Range Interpretation Comments HEPATITIS A IgM (test code = NON-REACTIVE 43866) HEPATITIS B CORE IgM (test code NON-REACTIVE = 4644) HEPATITIS B SURF AG (test code = NON-REACTIVE 2739) HEPATITIS C ANTIBODY (test code NON-REACTIVE = 4675) INTERPRETATION HEPATITIS A: (NOTE) (test code = 2552) INTERPRETATION HEPATITIS B: (NOTE) (test code = 73329) INTERPRETATION HEPATITIS C: (NOTE) (test code = 08474) ACUTE HEPATITIS [id number] 00:00:00 Test Item Value Reference Range Interpretation Comments HEPATITIS A IgM (test code = NON-REACTIVE 86342) HEPATITIS B CORE IgM (test code NON-REACTIVE = 4644) HEPATITIS B SURF AG (test code = NON-REACTIVE 2739) HEPATITIS C ANTIBODY (test code NON-REACTIVE = 4675) INTERPRETATION HEPATITIS A: (NOTE) (test code = 2552) INTERPRETATION HEPATITIS B: (NOTE) (test code = 50288) INTERPRETATION HEPATITIS C: (NOTE) (test code = 08362) HEMOGLOBIN [id number] 00:00:00 Test Item Value Reference Range Interpretation Comments HEMOGLOBIN A1c (test code = 48888) 6.2 % HEMOGLOBIN [id number] 00:00:00 Test Item Value Reference Range Interpretation Comments HEMOGLOBIN A1c (test code = 04823) 6.2 % LIPID [id number] 00:00:00 Test Item Value Reference Range Interpretation Comments CHOLESTEROL (test code = 2210) 196 MG/DL TRIGLYCERIDES (test code = 2232) 486 MG/DL HDL CHOLESTEROL (test code = 44 MG/DL 2219) CALC LDL CHOL (test code = 2237) (NOTE) MG/DL RISK RATIO LDL/HDL (test code = (NOTE) RATIO 2238) COMPREHENSIVE METABOLIC [id number] 00:00:00 Test Item Value Reference Range Interpretation Comments GLUCOSE (test code = 2217) 117 MG/DL BUN (test code = 2208) 54 MG/DL CREATININE (test code = 2214) 11.27 MG/DL eGFR (2020 CKD-EPI) (test code 5 ML/MIN/1.73 = 90647) CALC BUN/CREAT (test code = 5 RATIO [...] code = 2219) 8 U/L CBC W/AUTO [id number] 00:00:00 Test Item Value Reference Range Interpretation [...] NUCLEATED RBCS (test code = 0.00 K/UL 68664) CBC W/AUTO [id number] 00:00:00 Test Item Value Reference Range Interpretation [...] NUCLEATED RBCS (test code = 0.00 K/UL 34261) CBC W/AUTO [id number] 00:00:00 Test Item Value Reference Range Interpretation [...] NUCLEATED RBCS (test code = 0.00 K/UL 99399) [id number] 00:00:00 Test Item Value Reference Range Interpretation Comments TSH, THIRD GENERATION (test 82.000 UIU/ML code = 2821) HEMOGLOBIN [id number] 00:00:00 Test Item Value Reference Range Interpretation Comments HEMOGLOBIN A1c (test code = 31939) 6.2 % HEMOGLOBIN [id number] 00:00:00 Test Item Value Reference Range Interpretation Comments HEMOGLOBIN A1c (test code = 82691) 6.2 % [id number] 00:00:00 Test Item Value Reference Range Interpretation Comments TSH, THIRD GENERATION (test 82.000 UIU/ML code = 2821) HEMOGLOBIN [id number] 00:00:00 Test Item Value Reference Range Interpretation Comments HEMOGLOBIN A1c (test code = 90736) 6.2 % HIV AB/AG COMBO RFLX [id number] 00:00:00 Test Item Value Reference Range Interpretation Comments HIV 1/2 4TH GEN, RFLX CONF (test NON-REACTIVE code = 3514) LIPID [id number] 00:00:00 Test Item Value Reference Range Interpretation Comments CHOLESTEROL (test code = 2210) 196 MG/DL TRIGLYCERIDES (test code = 2232) 486 MG/DL HDL CHOLESTEROL (test code = 44 MG/DL 2220) CALC LDL CHOL (test code = 2237) (NOTE) MG/DL RISK RATIO LDL/HDL (test code = (NOTE) RATIO 2238) LIPID [id number] 00:00:00 Test Item Value Reference Range Interpretation Comments CHOLESTEROL (test code = 2210) 196 MG/DL TRIGLYCERIDES (test code = 2232) 486 MG/DL HDL CHOLESTEROL (test code = 44 MG/DL 2220) CALC LDL CHOL (test code = 2237) (NOTE) MG/DL RISK RATIO LDL/HDL (test code = (NOTE) RATIO 2238) ACUTE HEPATITIS [id number] 00:00:00 Test Item Value Reference Range Interpretation Comments HEPATITIS A IgM (test code = NON-REACTIVE 11715) HEPATITIS B CORE IgM (test code NON-REACTIVE = 4644) HEPATITIS B SURF AG (test code = NON-REACTIVE 7229) HEPATITIS C ANTIBODY (test code NON-REACTIVE = 4675) INTERPRETATION HEPATITIS A: (NOTE) (test code = 2552) INTERPRETATION HEPATITIS B: (NOTE) (test code = 66455) INTERPRETATION HEPATITIS C: (NOTE) (test code = 38480) COMPREHENSIVE METABOLIC [id number] 00:00:00 Test Item Value Reference Range Interpretation Comments GLUCOSE (test code = 2217) 117 MG/DL BUN (test code = 2208) 54 MG/DL CREATININE (test code = 2214) 11.27 MG/DL eGFR (2020 CKD-EPI) (test code 5 ML/MIN/1.73 = 86705) CALC BUN/CREAT (test code = 5 RATIO [...] code = 2219) 8 U/L COMPREHENSIVE METABOLIC [id number] 00:00:00 Test Item Value Reference Range Interpretation Comments GLUCOSE (test code = 2217) 117 MG/DL BUN (test code = 2208) 54 MG/DL CREATININE (test code = 2214) 11.27 MG/DL eGFR (2020 CKD-EPI) (test code 5 ML/MIN/1.73 = 55346) CALC BUN/CREAT (test code = 5 RATIO [...] ALT (test code = 2219) 8 U/L [id number] 00:00:00 Test Item Value Reference Range Interpretation Comments TSH, THIRD GENERATION (test 82.000 UIU/ML code = 2821) [id number] 00:00:00 Test Item Value Reference Range Interpretation Comments TSH, THIRD GENERATION (test 82.000 UIU/ML code = 2821) [id number] 00:00:00 Test Item Value Reference Range Interpretation Comments TSH, THIRD GENERATION (test 82.000 UIU/ML code = 2821) HIV AB/AG COMBO RFLX [id number] 00:00:00 Test Item Value Reference Range Interpretation Comments HIV 1/2 4TH GEN, RFLX CONF (test NON-REACTIVE code = 3514) HIV AB/AG COMBO RFLX [id number] 00:00:00 Test Item Value Reference Range Interpretation Comments HIV 1/2 4TH GEN, RFLX CONF (test NON-REACTIVE code = 3514) ACUTE HEPATITIS [id number] 00:00:00 Test Item Value Reference Range Interpretation Comments HEPATITIS A IgM (test code = NON-REACTIVE 87187) HEPATITIS B CORE IgM (test code NON-REACTIVE = 4644) HEPATITIS B SURF AG (test code = NON-REACTIVE 2739) HEPATITIS C ANTIBODY (test code NON-REACTIVE = 4675) INTERPRETATION HEPATITIS A: (NOTE) (test code = 2552) INTERPRETATION HEPATITIS B: (NOTE) (test code = 06271) INTERPRETATION HEPATITIS C: (NOTE) (test code = 78843) ACUTE HEPATITIS [id number] 00:00:00 Test Item Value Reference Range Interpretation Comments HEPATITIS A IgM (test code = NON-REACTIVE 98757) HEPATITIS B CORE IgM (test code NON-REACTIVE = 4644) HEPATITIS B SURF AG (test code = NON-REACTIVE 2739) HEPATITIS C ANTIBODY (test code NON-REACTIVE = 4675) INTERPRETATION HEPATITIS A: (NOTE) (test code = 2552) INTERPRETATION HEPATITIS B: (NOTE) (test code = 66563) INTERPRETATION HEPATITIS C: (NOTE) (test code = 63888) CBC W/AUTO [id number] 00:00:00 Test Item Value Reference Range Interpretation [...] NUCLEATED RBCS (test code = 0.00 K/UL 67134) CBC W/AUTO [id number] 00:00:00 Test Item Value Reference Range Interpretation [...] NUCLEATED RBCS (test code = 0.00 K/UL 06674) CBC W/AUTO [id number] 00:00:00 Test Item Value Reference Range Interpretation [...] NUCLEATED RBCS (test code = 0.00 K/UL 77960) HEMOGLOBIN [id number] 00:00:00 Test Item Value Reference Range Interpretation Comments HEMOGLOBIN A1c (test code = 56373) 6.2 % HEMOGLOBIN [id number] 00:00:00 Test Item Value Reference Range Interpretation Comments HEMOGLOBIN A1c (test code = 25135) 6.2 % HEMOGLOBIN [id number] 00:00:00 Test Item Value Reference Range Interpretation Comments HEMOGLOBIN A1c (test code = 12401) 6.2 % LIPID [id number] 00:00:00 Test Item Value Reference Range Interpretation Comments CHOLESTEROL (test code = 2210) 196 MG/DL TRIGLYCERIDES (test code = 2232) 486 MG/DL HDL CHOLESTEROL (test code = 44 MG/DL 2220) CALC LDL CHOL (test code = 2237) (NOTE) MG/DL RISK RATIO LDL/HDL (test code = (NOTE) RATIO 2238) LIPID [id number] 00:00:00 Test Item Value Reference Range Interpretation Comments CHOLESTEROL (test code = 2210) 196 MG/DL TRIGLYCERIDES (test code = 2232) 486 MG/DL HDL CHOLESTEROL (test code = 44 MG/DL 2220) CALC LDL CHOL (test code = 2237) (NOTE) MG/DL RISK RATIO LDL/HDL (test code = (NOTE) RATIO 2238) COMPREHENSIVE METABOLIC [id number] 00:00:00 Test Item Value Reference Range Interpretation Comments GLUCOSE (test code = 2217) 117 MG/DL BUN (test code = 2208) 54 MG/DL CREATININE (test code = 2214) 11.27 MG/DL eGFR (2020 CKD-EPI) (test code 5 ML/MIN/1.73 = 80980) CALC BUN/CREAT (test code = 5 RATIO [...] code = 2219) 8 U/L COMPREHENSIVE METABOLIC [id number] 00:00:00 Test Item Value Reference Range Interpretation Comments GLUCOSE (test code = 2217) 117 MG/DL BUN (test code = 2208) 54 MG/DL CREATININE (test code = 2214) 11.27 MG/DL eGFR (2020 CKD-EPI) (test code 5 ML/MIN/1.73 = 37874) CALC BUN/CREAT (test code = 5 RATIO [...] ALT (test code = 2219) 8 U/L [id number] 00:00:00 Test Item Value Reference Range Interpretation Comments TSH, THIRD GENERATION (test 82.000 UIU/ML code = 2821) [id number] 00:00:00 Test Item Value Reference Range Interpretation Comments TSH, THIRD GENERATION (test 82.000 UIU/ML code = 2821) [id number] 00:00:00 Test Item Value Reference Range Interpretation Comments TSH, THIRD GENERATION (test 82.000 UIU/ML code = 2821) HIV AB/AG COMBO RFLX [id number] 00:00:00 Test Item Value Reference Range Interpretation Comments HIV 1/2 4TH GEN, RFLX CONF (test NON-REACTIVE code = 3514) HIV AB/AG COMBO RFLX [id number] 00:00:00 Test Item Value Reference Range Interpretation Comments HIV 1/2 4TH GEN, RFLX CONF (test NON-REACTIVE code = 3514) ACUTE HEPATITIS [id number] 00:00:00 Test Item Value Reference Range Interpretation Comments HEPATITIS A IgM (test code = NON-REACTIVE 53607) HEPATITIS B CORE IgM (test code NON-REACTIVE = 4644) HEPATITIS B SURF AG (test code = NON-REACTIVE 2739) HEPATITIS C ANTIBODY (test code NON-REACTIVE = 4675) INTERPRETATION HEPATITIS A: (NOTE) (test code = 2552) INTERPRETATION HEPATITIS B: (NOTE) (test code = 54095) INTERPRETATION HEPATITIS C: (NOTE) (test code = 66160) ACUTE HEPATITIS [id number] 00:00:00 Test Item Value Reference Range Interpretation Comments HEPATITIS A IgM (test code = NON-REACTIVE 36658) HEPATITIS B CORE IgM (test code NON-REACTIVE = 4644) HEPATITIS B SURF AG (test code = NON-REACTIVE 2739) HEPATITIS C ANTIBODY (test code NON-REACTIVE = 4675) INTERPRETATION HEPATITIS A: (NOTE) (test code = 2552) INTERPRETATION HEPATITIS B: (NOTE) (test code = 33522) INTERPRETATION HEPATITIS C: (NOTE) (test code = 43856) CBC W/AUTO [id number] 00:00:00 Test Item Value Reference Range Interpretation [...] NUCLEATED RBCS (test code = 0.00 K/UL 59061) CBC W/AUTO [id number] 00:00:00 Test Item Value Reference Range Interpretation [...] NUCLEATED RBCS (test code = 0.00 K/UL 88989) CBC W/AUTO [id number] 00:00:00 Test Item Value Reference Range Interpretation [...] NUCLEATED RBCS (test code = 0.00 K/UL 23299) HEMOGLOBIN [id number] 00:00:00 Test Item Value Reference Range Interpretation Comments HEMOGLOBIN A1c (test code = 37878) 6.2 % HEMOGLOBIN [id number] 00:00:00 Test Item Value Reference Range Interpretation Comments HEMOGLOBIN A1c (test code = 25738) 6.2 % HEMOGLOBIN [id number] 00:00:00 Test Item Value Reference Range Interpretation Comments HEMOGLOBIN A1c (test code = 25932) 6.2 % LIPID [id number] 00:00:00 Test Item Value Reference Range Interpretation Comments CHOLESTEROL (test code = 2210) 196 MG/DL TRIGLYCERIDES (test code = 2232) 486 MG/DL HDL CHOLESTEROL (test code = 44 MG/DL 2220) CALC LDL CHOL (test code = 2237) (NOTE) MG/DL RISK RATIO LDL/HDL (test code = (NOTE) RATIO 2238) LIPID [id number] 00:00:00 Test Item Value Reference Range Interpretation Comments CHOLESTEROL (test code = 2210) 196 MG/DL TRIGLYCERIDES (test code = 2232) 486 MG/DL HDL CHOLESTEROL (test code = 44 MG/DL 2220) CALC LDL CHOL (test code = 2237) (NOTE) MG/DL RISK RATIO LDL/HDL (test code = (NOTE) RATIO 2238) COMPREHENSIVE METABOLIC [id number] 00:00:00 Test Item Value Reference Range Interpretation Comments GLUCOSE (test code = 2217) 117 MG/DL BUN (test code = 2208) 54 MG/DL CREATININE (test code = 2214) 11.27 MG/DL eGFR (2020 CKD-EPI) (test code 5 ML/MIN/1.73 = 89121) CALC BUN/CREAT (test code = 5 RATIO [...] code = 2219) 8 U/L COMPREHENSIVE METABOLIC [id number] 00:00:00 Test Item Value Reference Range Interpretation Comments GLUCOSE (test code = 2217) 117 MG/DL BUN (test code = 2208) 54 MG/DL CREATININE (test code = 2214) 11.27 MG/DL eGFR (2020 CKD-EPI) (test code 5 ML/MIN/1.73 = 67681) CALC BUN/CREAT (test code = 5 RATIO [...] ALT (test code = 2219) 8 U/L [id number] 00:00:00 Test Item Value Reference Range Interpretation Comments TSH, THIRD GENERATION (test 82.000 UIU/ML code = 2821) [id number] 00:00:00 Test Item Value Reference Range Interpretation Comments TSH, THIRD GENERATION (test 82.000 UIU/ML code = 2821) [id number] 00:00:00 Test Item Value Reference Range Interpretation Comments TSH, THIRD GENERATION (test 82.000 UIU/ML code = 2821) HIV AB/AG COMBO RFLX [id number] 00:00:00 Test Item Value Reference Range Interpretation Comments HIV 1/2 4TH GEN, RFLX CONF (test NON-REACTIVE code = 3514) HIV AB/AG COMBO RFLX [id number] 00:00:00 Test Item Value Reference Range Interpretation Comments HIV 1/2 4TH GEN, RFLX CONF (test NON-REACTIVE code = 3514) ACUTE HEPATITIS [id number] 00:00:00 Test Item Value Reference Range Interpretation Comments HEPATITIS A IgM (test code = NON-REACTIVE 72522) HEPATITIS B CORE IgM (test code NON-REACTIVE = 4644) HEPATITIS B SURF AG (test code = NON-REACTIVE 2739) HEPATITIS C ANTIBODY (test code NON-REACTIVE = 4675) INTERPRETATION HEPATITIS A: (NOTE) (test code = 2552) INTERPRETATION HEPATITIS B: (NOTE) (test code = 44352) INTERPRETATION HEPATITIS C: (NOTE) (test code = 85474) ACUTE HEPATITIS [id number] 00:00:00 Test Item Value Reference Range Interpretation Comments HEPATITIS A IgM (test code = NON-REACTIVE 57660) HEPATITIS B CORE IgM (test code NON-REACTIVE = 4644) HEPATITIS B SURF AG (test code = NON-REACTIVE 2739) HEPATITIS C ANTIBODY (test code NON-REACTIVE = 4675) INTERPRETATION HEPATITIS A: (NOTE) (test code = 2552) INTERPRETATION HEPATITIS B: (NOTE) (test code = 07778) INTERPRETATION HEPATITIS C: (NOTE) (test code = 71524) CBC W/AUTO [id number] 00:00:00 Test Item Value Reference Range Interpretation [...] NUCLEATED RBCS (test code = 0.00 K/UL 47136) CBC W/AUTO [id number] 00:00:00 Test Item Value Reference Range Interpretation [...] NUCLEATED RBCS (test code = 0.00 K/UL 11407) CBC W/AUTO [id number] 00:00:00 Test Item Value Reference Range Interpretation [...] NUCLEATED RBCS (test code = 0.00 K/UL 84787) HEMOGLOBIN [id number] 00:00:00 Test Item Value Reference Range Interpretation Comments HEMOGLOBIN A1c (test code = 10342) 6.2 % HEMOGLOBIN [id number] 00:00:00 Test Item Value Reference Range Interpretation Comments HEMOGLOBIN A1c (test code = 31240) 6.2 % HEMOGLOBIN [id number] 00:00:00 Test Item Value Reference Range Interpretation Comments HEMOGLOBIN A1c (test code = 16148) 6.2 % LIPID [id number] 00:00:00 Test Item Value Reference Range Interpretation Comments CHOLESTEROL (test code = 2210) 196 MG/DL TRIGLYCERIDES (test code = 2232) 486 MG/DL HDL CHOLESTEROL (test code = 44 MG/DL 2220) CALC LDL CHOL (test code = 2237) (NOTE) MG/DL RISK RATIO LDL/HDL (test code = (NOTE) RATIO 2238) LIPID [id number] 00:00:00 Test Item Value Reference Range Interpretation Comments CHOLESTEROL (test code = 2210) 196 MG/DL TRIGLYCERIDES (test code = 2232) 486 MG/DL HDL CHOLESTEROL (test code = 44 MG/DL 2220) CALC LDL CHOL (test code = 2237) (NOTE) MG/DL RISK RATIO LDL/HDL (test code = (NOTE) RATIO 2238) COMPREHENSIVE METABOLIC [id number] 00:00:00 Test Item Value Reference Range Interpretation Comments GLUCOSE (test code = 2217) 117 MG/DL BUN (test code = 2208) 54 MG/DL CREATININE (test code = 2214) 11.27 MG/DL eGFR (2020 CKD-EPI) (test code 5 ML/MIN/1.73 = 06092) CALC BUN/CREAT (test code = 5 RATIO [...] code = 2219) 8 U/L COMPREHENSIVE METABOLIC [id number] 00:00:00 Test Item Value Reference Range Interpretation Comments GLUCOSE (test code = 2217) 117 MG/DL BUN (test code = 2208) 54 MG/DL CREATININE (test code = 2214) 11.27 MG/DL eGFR (2020 CKD-EPI) (test code 5 ML/MIN/1.73 = 75446) CALC BUN/CREAT (test code = 5 RATIO [...] ALT (test code = 2219) 8 U/L [id number] 00:00:00 Test Item Value Reference Range Interpretation Comments TSH, THIRD GENERATION (test 82.000 UIU/ML code = 2821) [id number] 00:00:00 Test Item Value Reference Range Interpretation Comments TSH, THIRD GENERATION (test 82.000 UIU/ML code = 2821) [id number] 00:00:00 Test Item Value Reference Range Interpretation Comments TSH, THIRD GENERATION (test 82.000 UIU/ML code = 2821) HIV AB/AG COMBO RFLX [id number] 00:00:00 Test Item Value Reference Range Interpretation Comments HIV 1/2 4TH GEN, RFLX CONF (test NON-REACTIVE code = 3514) HIV AB/AG COMBO RFLX [id number] 00:00:00 Test Item Value Reference Range Interpretation Comments HIV 1/2 4TH GEN, RFLX CONF (test NON-REACTIVE code = 3514) ACUTE HEPATITIS [id number] 00:00:00 Test Item Value Reference Range Interpretation Comments HEPATITIS A IgM (test code = NON-REACTIVE 30227) HEPATITIS B CORE IgM (test code NON-REACTIVE = 4644) HEPATITIS B SURF AG (test code = NON-REACTIVE 2739) HEPATITIS C ANTIBODY (test code NON-REACTIVE = 4675) INTERPRETATION HEPATITIS A: (NOTE) (test code = 2552) INTERPRETATION HEPATITIS B: (NOTE) (test code = 09306) INTERPRETATION HEPATITIS C: (NOTE) (test code = 14390) ACUTE HEPATITIS [id number] 00:00:00 Test Item Value Reference Range Interpretation Comments HEPATITIS A IgM (test code = NON-REACTIVE 36075) HEPATITIS B CORE IgM (test code NON-REACTIVE = 4644) HEPATITIS B SURF AG (test code = NON-REACTIVE 2739) HEPATITIS C ANTIBODY (test code NON-REACTIVE = 4675) INTERPRETATION HEPATITIS A: (NOTE) (test code = 2552) INTERPRETATION HEPATITIS B: (NOTE) (test code = 96302) INTERPRETATION HEPATITIS C: (NOTE) (test code = 51054) TSH, THIRD [id number] 05:58:13 Test Item Value Reference Range Interpretation Comments TSH, THIRD 33.700 UIU/ML 0.400-4.100 H UNLESS OTHERW ISE GENERATION (test INDICATED, ALL code = 2821) TESTING PERFORM ED AT[facility]IN[facility], [address] [address] [facility] DIRECTOR: LATOYA MCCALL M.D. CLIA NUMBER [id number] CAP ACCREDITATION N O. [id number] HEMOGLOBIN [id number] 02:44:08 Test Item Value Reference Range Interpretation Comments HEMOGLOBIN A1c (test 7.0 % 4.2-5.6 H AMERIC AN DIABETES code = 66555) ASSOCIATION [employer] FOR HGB A1C: PREDIABETES/INC REASED [...] Interpretation Comments HEMOGLOBIN A1c (test code = 96084) 7.0 % HEMOGLOBIN A1c [ADDED]2021-05-16 00:00:00 Test Item Value Reference Range Interpretation Comments HEMOGLOBIN A1c (test code = 39602) 7.0 % HEMOGLOBIN A1c [ADDED]2021-05-16 00:00:00 Test Item Value Reference Range Interpretation Comments HEMOGLOBIN A1c (test code = 59292) 7.0 % TSH, THIRD GENERATION [ADDED]2021-05-16 00:00:00 [...] Interpretation Comments HEMOGLOBIN A1c (test code = 72641) 7.0 % HEMOGLOBIN A1c [ADDED]2021-05-16 00:00:00 Test Item Value Reference Range Interpretation Comments HEMOGLOBIN A1c (test code = 62078) 7.0 % HEMOGLOBIN A1c [ADDED]2021-05-16 00:00:00 Test Item Value Reference Range Interpretation Comments HEMOGLOBIN A1c (test code = 17860) 7.0 % TSH, THIRD GENERATION [ADDED]2021-05-16 00:00:00 [...] Interpretation Comments HEMOGLOBIN A1c (test code = 32395) 7.0 % HEMOGLOBIN A1c [ADDED]2021-05-16 00:00:00 Test Item Value Reference Range Interpretation Comments HEMOGLOBIN A1c (test code = 34604) 7.0 % HEMOGLOBIN A1c [ADDED]2021-05-16 00:00:00 Test Item Value Reference Range Interpretation Comments HEMOGLOBIN A1c (test code = 91300) 7.0 % HEMOGLOBIN A1c [ADDED]2021-05-16 00:00:00 Test Item Value Reference Range Interpretation Comments HEMOGLOBIN A1c (test code = 48918) 7.0 % HEMOGLOBIN A1c [ADDED]2021-05-16 00:00:00 Test Item Value Reference Range Interpretation Comments HEMOGLOBIN A1c (test code = 86864) 7.0 % TSH, THIRD GENERATION [ADDED]2021-05-16 00:00:00 [...] Interpretation Comments HEMOGLOBIN A1c (test code = 07550) 7.0 % HEMOGLOBIN A1c [ADDED]2021-05-16 00:00:00 Test Item Value Reference Range Interpretation Comments HEMOGLOBIN A1c (test code = 53824) 7.0 % HEMOGLOBIN A1c [ADDED]2021-05-16 00:00:00 Test Item Value Reference Range Interpretation Comments HEMOGLOBIN A1c (test code = 24882) 7.0 % TSH, THIRD GENERATION [ADDED]2021-05-16 00:00:00 [...] Interpretation Comments HEMOGLOBIN A1c (test code = 83757) 7.0 % HEMOGLOBIN A1c [ADDED]2021-05-16 00:00:00 Test Item Value Reference Range Interpretation Comments HEMOGLOBIN A1c (test code = 64831) 7.0 % HEMOGLOBIN A1c [ADDED]2021-05-16 00:00:00 Test Item Value Reference Range Interpretation Comments HEMOGLOBIN A1c (test code = 66261) 7.0 % TSH, THIRD GENERATION [ADDED]2021-05-16 00:00:00 [...] Interpretation Comments HEMOGLOBIN A1c (test code = 24830) 7.0 % HEMOGLOBIN A1c [ADDED]2021-05-16 00:00:00 Test Item Value Reference Range Interpretation Comments HEMOGLOBIN A1c (test code = 58351) 7.0 % HEMOGLOBIN A1c [ADDED]2021-05-16 00:00:00 Test Item Value Reference Range Interpretation Comments HEMOGLOBIN A1c (test code = 59900) 7.0 % TSH, THIRD GENERATION [ADDED]2021-05-16 00:00:00 [...] Interpretation Comments HEMOGLOBIN A1c (test code = 84754) 7.0 % HEMOGLOBIN A1c [ADDED]2021-05-16 00:00:00 Test Item Value Reference Range Interpretation Comments HEMOGLOBIN A1c (test code = 28662) 7.0 % HEMOGLOBIN A1c [ADDED]2021-05-16 00:00:00 Test Item Value Reference Range Interpretation Comments HEMOGLOBIN A1c (test code = 69420) 7.0 % TSH, THIRD GENERATION [ADDED]2021-05-16 00:00:00 [...] 33.700 UIU/ML code = 2821) CBC W/AUTO [id number] 00:00:00 Test Item Value Reference Range Interpretation [...] NUCLEATED RBCS (test code = 0.00 K/UL 15457) CBC W/AUTO [id number] 00:00:00 Test Item Value Reference Range Interpretation [...] NUCLEATED RBCS (test code = 0.00 K/UL 85582) CBC W/AUTO [id number] 00:00:00 Test Item Value Reference Range Interpretation [...] NUCLEATED RBCS (test code = 0.00 K/UL 34293) COMPREHENSIVE METABOLIC [id number] 00:00:00 Test Item Value Reference Range Interpretation Comments GLUCOSE (test code = 2217) 317 MG/DL BUN (test code = 2208) 41 MG/DL CREATININE (test code = 2214) 6.82 MG/DL eGFR (2020 CKD-EPI) (test code 8 ML/MIN/1.73 = 48377) CALC BUN/CREAT (test code = 6 RATIO [...] code = 2219) 22 U/L COMPREHENSIVE METABOLIC [id number] 00:00:00 Test Item Value Reference Range Interpretation Comments GLUCOSE (test code = 2217) 317 MG/DL BUN (test code = 2208) 41 MG/DL CREATININE (test code = 2214) 6.82 MG/DL eGFR (2020 CKD-EPI) (test code 8 ML/MIN/1.73 = 34984) CALC BUN/CREAT (test code = 6 RATIO [...] code = 2219) 22 U/L CBC W/AUTO [id number] 00:00:00 Test Item Value Reference Range Interpretation [...] NUCLEATED RBCS (test code = 0.00 K/UL 30010) CBC W/AUTO [id number] 00:00:00 Test Item Value Reference Range Interpretation [...] NUCLEATED RBCS (test code = 0.00 K/UL 28340) CBC W/AUTO [id number] 00:00:00 Test Item Value Reference Range Interpretation [...] NUCLEATED RBCS (test code = 0.00 K/UL 87924) COMPREHENSIVE METABOLIC [id number] 00:00:00 Test Item Value Reference Range Interpretation Comments GLUCOSE (test code = 2217) 317 MG/DL BUN (test code = 2208) 41 MG/DL CREATININE (test code = 2214) 6.82 MG/DL eGFR (2020 CKD-EPI) (test code 8 ML/MIN/1.73 = 54209) CALC BUN/CREAT (test code = 6 RATIO [...] code = 2219) 22 U/L COMPREHENSIVE METABOLIC [id number] 00:00:00 Test Item Value Reference Range Interpretation Comments GLUCOSE (test code = 2217) 317 MG/DL BUN (test code = 2208) 41 MG/DL CREATININE (test code = 2214) 6.82 MG/DL eGFR (2020 CKD-EPI) (test code 8 ML/MIN/1.73 = 10272) CALC BUN/CREAT (test code = 6 RATIO [...] code = 2219) 22 U/L CBC W/AUTO [id number] 00:00:00 Test Item Value Reference Range Interpretation [...] NUCLEATED RBCS (test code = 0.00 K/UL 28810) CBC W/AUTO [id number] 00:00:00 Test Item Value Reference Range Interpretation [...] NUCLEATED RBCS (test code = 0.00 K/UL 72637) CBC W/AUTO [id number] 00:00:00 Test Item Value Reference Range Interpretation [...] NUCLEATED RBCS (test code = 0.00 K/UL 29951) CBC W/AUTO [id number] 00:00:00 Test Item Value Reference Range Interpretation [...] NUCLEATED RBCS (test code = 0.00 K/UL 83543) CBC W/AUTO [id number] 00:00:00 Test Item Value Reference Range Interpretation [...] NUCLEATED RBCS (test code = 0.00 K/UL 60551) COMPREHENSIVE METABOLIC [id number] 00:00:00 Test Item Value Reference Range Interpretation Comments GLUCOSE (test code = 2217) 317 MG/DL BUN (test code = 2208) 41 MG/DL CREATININE (test code = 2214) 6.82 MG/DL eGFR (2020 CKD-EPI) (test code 8 ML/MIN/1.73 = 31473) CALC BUN/CREAT (test code = 6 RATIO [...] code = 2219) 22 U/L COMPREHENSIVE METABOLIC [id number] 00:00:00 Test Item Value Reference Range Interpretation Comments GLUCOSE (test code = 2217) 317 MG/DL BUN (test code = 2208) 41 MG/DL CREATININE (test code = 2214) 6.82 MG/DL eGFR (2020 CKD-EPI) (test code 8 ML/MIN/1.73 = 05519) CALC BUN/CREAT (test code = 6 RATIO [...] code = 2219) 22 U/L COMPREHENSIVE METABOLIC [id number] 00:00:00 Test Item Value Reference Range Interpretation Comments GLUCOSE (test code = 2217) 317 MG/DL BUN (test code = 2208) 41 MG/DL CREATININE (test code = 2214) 6.82 MG/DL eGFR (2020 CKD-EPI) (test code 8 ML/MIN/1.73 = 88386) CALC BUN/CREAT (test code = 6 RATIO [...] code = 2219) 22 U/L CBC W/AUTO [id number] 00:00:00 Test Item Value Reference Range Interpretation [...] NUCLEATED RBCS (test code = 0.00 K/UL 90920) CBC W/AUTO [id number] 00:00:00 Test Item Value Reference Range Interpretation [...] NUCLEATED RBCS (test code = 0.00 K/UL 80190) CBC W/AUTO [id number] 00:00:00 Test Item Value Reference Range Interpretation [...] NUCLEATED RBCS (test code = 0.00 K/UL 38273) COMPREHENSIVE METABOLIC [id number] 00:00:00 Test Item Value Reference Range Interpretation Comments GLUCOSE (test code = 2217) 317 MG/DL BUN (test code = 2208) 41 MG/DL CREATININE (test code = 2214) 6.82 MG/DL eGFR (2020 CKD-EPI) (test code 8 ML/MIN/1.73 = 02952) CALC BUN/CREAT (test code = 6 RATIO [...] code = 2219) 22 U/L COMPREHENSIVE METABOLIC [id number] 00:00:00 Test Item Value Reference Range Interpretation Comments GLUCOSE (test code = 2217) 317 MG/DL BUN (test code = 2208) 41 MG/DL CREATININE (test code = 2214) 6.82 MG/DL eGFR (2020 CKD-EPI) (test code 8 ML/MIN/1.73 = 84968) CALC BUN/CREAT (test code = 6 RATIO [...] code = 2219) 22 U/L CBC W/AUTO [id number] 00:00:00 Test Item Value Reference Range Interpretation [...] NUCLEATED RBCS (test code = 0.00 K/UL 14901) CBC W/AUTO [id number] 00:00:00 Test Item Value Reference Range Interpretation [...] NUCLEATED RBCS (test code = 0.00 K/UL 96877) CBC W/AUTO [id number] 00:00:00 Test Item Value Reference Range Interpretation [...] NUCLEATED RBCS (test code = 0.00 K/UL 26166) COMPREHENSIVE METABOLIC [id number] 00:00:00 Test Item Value Reference Range Interpretation Comments GLUCOSE (test code = 2217) 317 MG/DL BUN (test code = 2208) 41 MG/DL CREATININE (test code = 2214) 6.82 MG/DL eGFR (2020 CKD-EPI) (test code 8 ML/MIN/1.73 = 24089) CALC BUN/CREAT (test code = 6 RATIO [...] code = 2219) 22 U/L COMPREHENSIVE METABOLIC [id number] 00:00:00 Test Item Value Reference Range Interpretation Comments GLUCOSE (test code = 2217) 317 MG/DL BUN (test code = 2208) 41 MG/DL CREATININE (test code = 2214) 6.82 MG/DL eGFR (2020 CKD-EPI) (test code 8 ML/MIN/1.73 = 75692) CALC BUN/CREAT (test code = 6 RATIO [...] code = 2219) 22 U/L CBC W/AUTO [id number] 00:00:00 Test Item Value Reference Range Interpretation [...] NUCLEATED RBCS (test code = 0.00 K/UL 85219) CBC W/AUTO [id number] 00:00:00 Test Item Value Reference Range Interpretation [...] NUCLEATED RBCS (test code = 0.00 K/UL 22053) CBC W/AUTO [id number] 00:00:00 Test Item Value Reference Range Interpretation [...] NUCLEATED RBCS (test code = 0.00 K/UL 97265) COMPREHENSIVE METABOLIC [id number] 00:00:00 Test Item Value Reference Range Interpretation Comments GLUCOSE (test code = 2217) 317 MG/DL BUN (test code = 2208) 41 MG/DL CREATININE (test code = 2214) 6.82 MG/DL eGFR (2020 CKD-EPI) (test code 8 ML/MIN/1.73 = 33437) CALC BUN/CREAT (test code = 6 RATIO [...] code = 2219) 22 U/L COMPREHENSIVE METABOLIC [id number] 00:00:00 Test Item Value Reference Range Interpretation Comments GLUCOSE (test code = 2217) 317 MG/DL BUN (test code = 2208) 41 MG/DL CREATININE (test code = 2214) 6.82 MG/DL eGFR (2020 CKD-EPI) (test code 8 ML/MIN/1.73 = 76638) CALC BUN/CREAT (test code = 6 RATIO [...] code = 2219) 22 U/L CBC W/AUTO [id number] 00:00:00 Test Item Value Reference Range Interpretation [...] NUCLEATED RBCS (test code = 0.00 K/UL 56058) CBC W/AUTO [id number] 00:00:00 Test Item Value Reference Range Interpretation [...] NUCLEATED RBCS (test code = 0.00 K/UL 34957) CBC W/AUTO [id number] 00:00:00 Test Item Value Reference Range Interpretation [...] NUCLEATED RBCS (test code = 0.00 K/UL 99101) COMPREHENSIVE METABOLIC [id number] 00:00:00 Test Item Value Reference Range Interpretation Comments GLUCOSE (test code = 2217) 317 MG/DL BUN (test code = 2208) 41 MG/DL CREATININE (test code = 2214) 6.82 MG/DL eGFR (2020 CKD-EPI) (test code 8 ML/MIN/1.73 = 86520) CALC BUN/CREAT (test code = 6 RATIO [...] code = 2219) 22 U/L COMPREHENSIVE METABOLIC [id number] 00:00:00 Test Item Value Reference Range Interpretation Comments GLUCOSE (test code = 2217) 317 MG/DL BUN (test code = 2208) 41 MG/DL CREATININE (test code = 2214) 6.82 MG/DL eGFR (2020 CKD-EPI) (test code 8 ML/MIN/1.73 = 88542) CALC BUN/CREAT (test code = 6 RATIO [...] ALT (test code = 2219) 22 U/L [id number] 00:00:00 Test Item Value Reference Range Interpretation Comments AMYLASE (test code = 2205) 168 U/L [id number] 00:00:00 Test Item Value Reference Range Interpretation Comments AMYLASE (test code = 2205) 168 U/L [id number] 00:00:00 Test Item Value Reference Range Interpretation Comments LIPASE (test code = 2058) 116 U/L [id number] 00:00:00 Test Item Value Reference Range Interpretation Comments LIPASE (test code = 2058) 116 U/L [id number] 00:00:00 Test Item Value Reference Range Interpretation Comments LIPASE (test code = 2058) 116 U/L [id number] 00:00:00 Test Item Value Reference Range Interpretation Comments AMYLASE (test code = 2205) 168 U/L [id number] 00:00:00 Test Item Value Reference Range Interpretation Comments AMYLASE (test code = 5) 168 U/L [id number] 00:00:00 Test Item Value Reference Range Interpretation Comments LIPASE (test code = 2057) 116 U/L [id number] 00:00:00 Test Item Value Reference Range Interpretation Comments LIPASE (test code = 2057) 116 U/L [id number] 00:00:00 Test Item Value Reference Range Interpretation Comments LIPASE (test code = 2057) 116 U/L [id number] 00:00:00 Test Item Value Reference Range Interpretation Comments AMYLASE (test code = 5) 168 U/L [id number] 00:00:00 Test Item Value Reference Range Interpretation Comments AMYLASE (test code = 2204) 168 U/L [id number] 00:00:00 Test Item Value Reference Range Interpretation Comments AMYLASE (test code = 2204) 168 U/L [id number] 00:00:00 Test Item Value Reference Range Interpretation Comments LIPASE (test code = 2057) 116 U/L [id number] 00:00:00 Test Item Value Reference Range Interpretation Comments LIPASE (test code = 2057) 116 U/L [id number] 00:00:00 Test Item Value Reference Range Interpretation Comments LIPASE (test code = 2057) 116 U/L [id number] 00:00:00 Test Item Value Reference Range Interpretation Comments LIPASE (test code = 2057) 116 U/L [id number] 00:00:00 Test Item Value Reference Range Interpretation Comments LIPASE (test code = 2057) 116 U/L [id number] 00:00:00 Test Item Value Reference Range Interpretation Comments AMYLASE (test code = 2204) 168 U/L [id number] 00:00:00 Test Item Value Reference Range Interpretation Comments AMYLASE (test code = 2204) 168 U/L [id number] 00:00:00 Test Item Value Reference Range Interpretation Comments LIPASE (test code = 2057) 116 U/L [id number] 00:00:00 Test Item Value Reference Range Interpretation Comments LIPASE (test code = 2057) 116 U/L [id number] 00:00:00 Test Item Value Reference Range Interpretation Comments LIPASE (test code = 2057) 116 U/L [id number] 00:00:00 Test Item Value Reference Range Interpretation Comments AMYLASE (test code = 2205) 168 U/L [id number] 00:00:00 Test Item Value Reference Range Interpretation Comments AMYLASE (test code = 2205) 168 U/L [id number] 00:00:00 Test Item Value Reference Range Interpretation Comments LIPASE (test code = 2057) 116 U/L [id number] 00:00:00 Test Item Value Reference Range Interpretation Comments LIPASE (test code = 2057) 116 U/L [id number] 00:00:00 Test Item Value Reference Range Interpretation Comments LIPASE (test code = 2057) 116 U/L [id number] 00:00:00 Test Item Value Reference Range Interpretation Comments AMYLASE (test code = 2205) 168 U/L [id number] 00:00:00 Test Item Value Reference Range Interpretation Comments AMYLASE (test code = 5) 168 U/L [id number] 00:00:00 Test Item Value Reference Range Interpretation Comments LIPASE (test code = 2057) 116 U/L [id number] 00:00:00 Test Item Value Reference Range Interpretation Comments LIPASE (test code = 2057) 116 U/L [id number] 00:00:00 Test Item Value Reference Range Interpretation Comments LIPASE (test code = 2057) 116 U/L [id number] 00:00:00 Test Item Value Reference Range Interpretation Comments AMYLASE (test code = 2205) 168 U/L [id number] 00:00:00 Test Item Value Reference Range Interpretation Comments AMYLASE (test code = 2205) 168 U/L [id number] 00:00:00 Test Item Value Reference Range Interpretation Comments LIPASE (test code = 2057) 116 U/L [id number] 00:00:00 Test Item Value Reference Range Interpretation Comments LIPASE (test code = 2057) 116 U/L [id number] 00:00:00 Test Item Value Reference Range Interpretation Comments LIPASE (test code = 2057) 116 U/L [id number] 00:00:00 Test Item Value Reference Range Interpretation Comments TSH, THIRD GENERATION (test >100.000 UIU/ML code = 2821) [id number] 00:00:00 Test Item Value Reference Range Interpretation Comments TSH, THIRD GENERATION (test >100.000 UIU/ML code = 2821) [id number] 00:00:00 Test Item Value Reference Range Interpretation Comments TSH, THIRD GENERATION (test >100.000 UIU/ML code = 2821) LIPID [id number] 00:00:00 Test Item Value Reference Range Interpretation Comments CHOLESTEROL (test code = 2210) 308 MG/DL TRIGLYCERIDES (test code = 2232) 280 MG/DL HDL CHOLESTEROL (test code = 2220) 66 MG/DL CALC LDL CHOL (test code = 2237) 192 MG/DL RISK RATIO LDL/HDL (test code = 2.91 RATIO 2238) LIPID [id number] 00:00:00 Test Item Value Reference Range Interpretation Comments CHOLESTEROL (test code = 2210) 308 MG/DL TRIGLYCERIDES (test code = 2232) 280 MG/DL HDL CHOLESTEROL (test code = 2220) 66 MG/DL CALC LDL CHOL (test code = 2237) 192 MG/DL RISK RATIO LDL/HDL (test code = 2.91 RATIO 2238) CBC W/AUTO [id number] 00:00:00 Test Item Value Reference Range Interpretation [...] NUCLEATED RBCS (test code = 0.00 K/UL 37860) CBC W/AUTO [id number] 00:00:00 Test Item Value Reference Range Interpretation [...] NUCLEATED RBCS (test code = 0.00 K/UL 98616) CBC W/AUTO [id number] 00:00:00 Test Item Value Reference Range Interpretation [...] NUCLEATED RBCS (test code = 0.00 K/UL 17068) COMPREHENSIVE METABOLIC [id number] 00:00:00 Test Item Value Reference Range Interpretation Comments GLUCOSE (test code = 2217) 137 MG/DL BUN (test code = 2208) 56 MG/DL CREATININE (test code = 2214) 10.21 MG/DL eGFR AMER. (test code = 6 ML/MIN/1.73 88314) eGFR NON- AMER. (test 5 ML/MIN/1.73 code = 15074) CALC BUN/CREAT (test code = 5 RATIO [...] code = 2219) 16 U/L COMPREHENSIVE METABOLIC [id number] 00:00:00 Test Item Value Reference Range Interpretation Comments GLUCOSE (test code = 2217) 137 MG/DL BUN (test code = 2208) 56 MG/DL CREATININE (test code = 2214) 10.21 MG/DL eGFR AMER. (test code = 6 ML/MIN/1.73 52138) eGFR NON- AMER. (test 5 ML/MIN/1.73 code = 83064) CALC BUN/CREAT (test code = 5 RATIO 2235) SODIUM (test code = 2231) 141 MEQ/L POTASSIUM (test code = 2228) 4.4 MEQ/L CHLORIDE (test code = 2215) 93 MEQ/L CARBON DIOXIDE (test code = 24 MEQ/L 6) CALCIUM (test code = 2209) 9.5 MG/DL [...] ALT (test code = 2219) 16 U/L [id number] 00:00:00 Test Item Value Reference Range Interpretation Comments TSH, THIRD GENERATION (test >100.000 UIU/ML code = 2821) [id number] 00:00:00 Test Item Value Reference Range Interpretation Comments TSH, THIRD GENERATION (test >100.000 UIU/ML code = 2821) [id number] 00:00:00 Test Item Value Reference Range Interpretation Comments TSH, THIRD GENERATION (test >100.000 UIU/ML code = 2821) LIPID [id number] 00:00:00 Test Item Value Reference Range Interpretation Comments CHOLESTEROL (test code = 2210) 308 MG/DL TRIGLYCERIDES (test code = 2232) 280 MG/DL HDL CHOLESTEROL (test code = 2220) 66 MG/DL CALC LDL CHOL (test code = 2237) 192 MG/DL RISK RATIO LDL/HDL (test code = 2.91 RATIO 2238) LIPID [id number] 00:00:00 Test Item Value Reference Range Interpretation Comments CHOLESTEROL (test code = 2210) 308 MG/DL TRIGLYCERIDES (test code = 2232) 280 MG/DL HDL CHOLESTEROL (test code = 2220) 66 MG/DL CALC LDL CHOL (test code = 2237) 192 MG/DL RISK RATIO LDL/HDL (test code = 2.91 RATIO 2238) CBC W/AUTO [id number] 00:00:00 Test Item Value Reference Range Interpretation [...] NUCLEATED RBCS (test code = 0.00 K/UL 85911) CBC W/AUTO [id number] 00:00:00 Test Item Value Reference Range Interpretation [...] NUCLEATED RBCS (test code = 0.00 K/UL 55822) CBC W/AUTO [id number] 00:00:00 Test Item Value Reference Range Interpretation [...] NUCLEATED RBCS (test code = 0.00 K/UL 79400) COMPREHENSIVE METABOLIC [id number] 00:00:00 Test Item Value Reference Range Interpretation Comments GLUCOSE (test code = 2217) 137 MG/DL BUN (test code = 2208) 56 MG/DL CREATININE (test code = 2214) 10.21 MG/DL eGFR AMER. (test code = 6 ML/MIN/1.73 95118) eGFR NON- AMER. (test 5 ML/MIN/1.73 code = 32965) CALC BUN/CREAT (test code = 5 RATIO [...] code = 2219) 16 U/L COMPREHENSIVE METABOLIC [id number] 00:00:00 Test Item Value Reference Range Interpretation Comments GLUCOSE (test code = 2217) 137 MG/DL BUN (test code = 2208) 56 MG/DL CREATININE (test code = 2214) 10.21 MG/DL eGFR AMER. (test code = 6 ML/MIN/1.73 30075) eGFR NON- AMER. (test 5 ML/MIN/1.73 code = 24629) CALC BUN/CREAT (test code = 5 RATIO [...] ALT (test code = 2219) 16 U/L [id number] 00:00:00 Test Item Value Reference Range Interpretation Comments TSH, THIRD GENERATION (test >100.000 UIU/ML code = 2821) [id number] 00:00:00 Test Item Value Reference Range Interpretation Comments TSH, THIRD GENERATION (test >100.000 UIU/ML code = 2821) [id number] 00:00:00 Test Item Value Reference Range Interpretation Comments TSH, THIRD GENERATION (test >100.000 UIU/ML code = 2821) [id number] 00:00:00 Test Item Value Reference Range Interpretation Comments TSH, THIRD GENERATION (test >100.000 UIU/ML code = 2821) [id number] 00:00:00 Test Item Value Reference Range Interpretation Comments TSH, THIRD GENERATION (test >100.000 UIU/ML code = 2821) LIPID [id number] 00:00:00 Test Item Value Reference Range Interpretation Comments CHOLESTEROL (test code = 2210) 308 MG/DL TRIGLYCERIDES (test code = 2232) 280 MG/DL HDL CHOLESTEROL (test code = 2220) 66 MG/DL CALC LDL CHOL (test code = 2237) 192 MG/DL RISK RATIO LDL/HDL (test code = 2.91 RATIO 2238) LIPID [id number] 00:00:00 Test Item Value Reference Range Interpretation Comments CHOLESTEROL (test code = 2210) 308 MG/DL TRIGLYCERIDES (test code = 2232) 280 MG/DL HDL CHOLESTEROL (test code = 2220) 66 MG/DL CALC LDL CHOL (test code = 2237) 192 MG/DL RISK RATIO LDL/HDL (test code = 2.91 RATIO 2238) CBC W/AUTO [id number] 00:00:00 Test Item Value Reference Range Interpretation [...] NUCLEATED RBCS (test code = 0.00 K/UL 17447) CBC W/AUTO [id number] 00:00:00 Test Item Value Reference Range Interpretation [...] NUCLEATED RBCS (test code = 0.00 K/UL 03275) CBC W/AUTO [id number] 00:00:00 Test Item Value Reference Range Interpretation [...] NUCLEATED RBCS (test code = 0.00 K/UL 94947) COMPREHENSIVE METABOLIC [id number] 00:00:00 Test Item Value Reference Range Interpretation Comments GLUCOSE (test code = 2217) 137 MG/DL BUN (test code = 2208) 56 MG/DL CREATININE (test code = 2214) 10.21 MG/DL eGFR AMER. (test code = 6 ML/MIN/1.73 71386) eGFR NON- AMER. (test 5 ML/MIN/1.73 code = 96555) CALC BUN/CREAT (test code = 5 RATIO [...] BILIRUBIN, TOTAL (test code = 0.4 MG/DL 220) ALKALINE PHOSPHATASE (test code 83 U/L = 2204) AST (test code = 2218) 13 U/L ALT (test code = 2219) 16 U/L COMPREHENSIVE METABOLIC [id number] 00:00:00 Test Item Value Reference Range Interpretation Comments GLUCOSE (test code = 2217) 137 MG/DL BUN (test code = 2208) 56 MG/DL CREATININE (test code = 2214) 10.21 MG/DL eGFR AMER. (test code = 6 ML/MIN/1.73 05675) eGFR NON- AMER. (test 5 ML/MIN/1.73 code = 11216) CALC BUN/CREAT (test code = 5 RATIO [...] (test code = 2219) 16 U/L LIPID [id number] 00:00:00 Test Item Value Reference Range Interpretation Comments CHOLESTEROL (test code = 2210) 308 MG/DL TRIGLYCERIDES (test code = 2232) 280 MG/DL HDL CHOLESTEROL (test code = 2220) 66 MG/DL CALC LDL CHOL (test code = 2237) 192 MG/DL RISK RATIO LDL/HDL (test code = 2.91 RATIO 2238) CBC W/AUTO [id number] 00:00:00 Test Item Value Reference Range Interpretation [...] NUCLEATED RBCS (test code = 0.00 K/UL 28312) CBC W/AUTO [id number] 00:00:00 Test Item Value Reference Range Interpretation [...] NUCLEATED RBCS (test code = 0.00 K/UL 40619) COMPREHENSIVE METABOLIC [id number] 00:00:00 Test Item Value Reference Range Interpretation Comments GLUCOSE (test code = 2217) 137 MG/DL BUN (test code = 2208) 56 MG/DL CREATININE (test code = 2214) 10.21 MG/DL eGFR AMER. (test code = 6 ML/MIN/1.73 53009) eGFR NON- AMER. (test 5 ML/MIN/1.73 code = 11369) CALC BUN/CREAT (test code = 5 RATIO 2235) SODIUM (test code = 2231) 141 MEQ/L POTASSIUM (test code = 2228) 4.4 MEQ/L CHLORIDE (test code = 2215) 93 MEQ/L CARBON DIOXIDE (test code = 24 MEQ/L 2205) CALCIUM (test code = 220) 9.5 MG/DL PROTEIN, TOTAL (test code = [...] ALT (test code = 2219) 16 U/L [id number] 00:00:00 Test Item Value Reference Range Interpretation Comments TSH, THIRD GENERATION (test >100.000 UIU/ML code = 2821) [id number] 00:00:00 Test Item Value Reference Range Interpretation Comments TSH, THIRD GENERATION (test >100.000 UIU/ML code = 2821) [id number] 00:00:00 Test Item Value Reference Range Interpretation Comments TSH, THIRD GENERATION (test >100.000 UIU/ML code = 2821) LIPID [id number] 00:00:00 Test Item Value Reference Range Interpretation Comments CHOLESTEROL (test code = 2210) 308 MG/DL TRIGLYCERIDES (test code = 2232) 280 MG/DL HDL CHOLESTEROL (test code = 2220) 66 MG/DL CALC LDL CHOL (test code = 2237) 192 MG/DL RISK RATIO LDL/HDL (test code = 2.91 RATIO 2238) LIPID [id number] 00:00:00 Test Item Value Reference Range Interpretation Comments CHOLESTEROL (test code = 2210) 308 MG/DL TRIGLYCERIDES (test code = 2232) 280 MG/DL HDL CHOLESTEROL (test code = 2220) 66 MG/DL CALC LDL CHOL (test code = 2237) 192 MG/DL RISK RATIO LDL/HDL (test code = 2.91 RATIO 2238) CBC W/AUTO [id number] 00:00:00 Test Item Value Reference Range Interpretation [...] NUCLEATED RBCS (test code = 0.00 K/UL 12748) CBC W/AUTO [id number] 00:00:00 Test Item Value Reference Range Interpretation [...] NUCLEATED RBCS (test code = 0.00 K/UL 68305) CBC W/AUTO [id number] 00:00:00 Test Item Value Reference Range Interpretation [...] NUCLEATED RBCS (test code = 0.00 K/UL 04533) COMPREHENSIVE METABOLIC [id number] 00:00:00 Test Item Value Reference Range Interpretation Comments GLUCOSE (test code = 2217) 137 MG/DL BUN (test code = 2208) 56 MG/DL CREATININE (test code = 2214) 10.21 MG/DL eGFR AMER. (test code = 6 ML/MIN/1.73 77415) eGFR NON- AMER. (test 5 ML/MIN/1.73 code = 67726) CALC BUN/CREAT (test code = 5 RATIO [...] code = 2219) 16 U/L COMPREHENSIVE METABOLIC [id number] 00:00:00 Test Item Value Reference Range Interpretation Comments GLUCOSE (test code = 2217) 137 MG/DL BUN (test code = 2208) 56 MG/DL CREATININE (test code = 2214) 10.21 MG/DL eGFR AMER. (test code = 6 ML/MIN/1.73 23630) eGFR NON- AMER. (test 5 ML/MIN/1.73 code = 71770) CALC BUN/CREAT (test code = 5 RATIO [...] ALT (test code = 2219) 16 U/L [id number] 00:00:00 Test Item Value Reference Range Interpretation Comments TSH, THIRD GENERATION (test >100.000 UIU/ML code = 2821) [id number] 00:00:00 Test Item Value Reference Range Interpretation Comments TSH, THIRD GENERATION (test >100.000 UIU/ML code = 2821) [id number] 00:00:00 Test Item Value Reference Range Interpretation Comments TSH, THIRD GENERATION (test >100.000 UIU/ML code = 2821) LIPID [id number] 00:00:00 Test Item Value Reference Range Interpretation Comments CHOLESTEROL (test code = 2210) 308 MG/DL TRIGLYCERIDES (test code = 2232) 280 MG/DL HDL CHOLESTEROL (test code = 2220) 66 MG/DL CALC LDL CHOL (test code = 2237) 192 MG/DL RISK RATIO LDL/HDL (test code = 2.91 RATIO 2238) LIPID [id number] 00:00:00 Test Item Value Reference Range Interpretation Comments CHOLESTEROL (test code = 2210) 308 MG/DL TRIGLYCERIDES (test code = 2232) 280 MG/DL HDL CHOLESTEROL (test code = 2220) 66 MG/DL CALC LDL CHOL (test code = 2237) 192 MG/DL RISK RATIO LDL/HDL (test code = 2.91 RATIO 2238) CBC W/AUTO [id number] 00:00:00 Test Item Value Reference Range Interpretation [...] NUCLEATED RBCS (test code = 0.00 K/UL 48982) CBC W/AUTO [id number] 00:00:00 Test Item Value Reference Range Interpretation [...] NUCLEATED RBCS (test code = 0.00 K/UL 11283) CBC W/AUTO [id number] 00:00:00 Test Item Value Reference Range Interpretation [...] NUCLEATED RBCS (test code = 0.00 K/UL 85362) COMPREHENSIVE METABOLIC [id number] 00:00:00 Test Item Value Reference Range Interpretation Comments GLUCOSE (test code = 2217) 137 MG/DL BUN (test code = 2208) 56 MG/DL CREATININE (test code = 2214) 10.21 MG/DL eGFR AMER. (test code = 6 ML/MIN/1.73 61344) eGFR NON- AMER. (test 5 ML/MIN/1.73 code = 90075) CALC BUN/CREAT (test code = 5 RATIO [...] code = 2219) 16 U/L COMPREHENSIVE METABOLIC [id number] 00:00:00 Test Item Value Reference Range Interpretation Comments GLUCOSE (test code = 2217) 137 MG/DL BUN (test code = 2208) 56 MG/DL CREATININE (test code = 2214) 10.21 MG/DL eGFR AMER. (test code = 6 ML/MIN/1.73 39487) eGFR NON- AMER. (test 5 ML/MIN/1.73 code = 88758) CALC BUN/CREAT (test code = 5 RATIO [...] ALT (test code = 2219) 16 U/L [id number] 00:00:00 Test Item Value Reference Range Interpretation Comments TSH, THIRD GENERATION (test >100.000 UIU/ML code = 2821) [id number] 00:00:00 Test Item Value Reference Range Interpretation Comments TSH, THIRD GENERATION (test >100.000 UIU/ML code = 2821) [id number] 00:00:00 Test Item Value Reference Range Interpretation Comments TSH, THIRD GENERATION (test >100.000 UIU/ML code = 2821) LIPID [id number] 00:00:00 Test Item Value Reference Range Interpretation Comments CHOLESTEROL (test code = 2210) 308 MG/DL TRIGLYCERIDES (test code = 2232) 280 MG/DL HDL CHOLESTEROL (test code = 2220) 66 MG/DL CALC LDL CHOL (test code = 2237) 192 MG/DL RISK RATIO LDL/HDL (test code = 2.91 RATIO 2238) LIPID [id number] 00:00:00 Test Item Value Reference Range Interpretation Comments CHOLESTEROL (test code = 2210) 308 MG/DL TRIGLYCERIDES (test code = 2232) 280 MG/DL HDL CHOLESTEROL (test code = 2220) 66 MG/DL CALC LDL CHOL (test code = 2237) 192 MG/DL RISK RATIO LDL/HDL (test code = 2.91 RATIO 2238) CBC W/AUTO [id number] 00:00:00 Test Item Value Reference Range Interpretation [...] NUCLEATED RBCS (test code = 0.00 K/UL 52134) CBC W/AUTO [id number] 00:00:00 Test Item Value Reference Range Interpretation [...] NUCLEATED RBCS (test code = 0.00 K/UL 66151) CBC W/AUTO [id number] 00:00:00 Test Item Value Reference Range Interpretation [...] NUCLEATED RBCS (test code = 0.00 K/UL 05169) COMPREHENSIVE METABOLIC [id number] 00:00:00 Test Item Value Reference Range Interpretation Comments GLUCOSE (test code = 2217) 137 MG/DL BUN (test code = 2208) 56 MG/DL CREATININE (test code = 2214) 10.21 MG/DL eGFR AMER. (test code = 6 ML/MIN/1.73 45238) eGFR NON- AMER. (test 5 ML/MIN/1.73 code = 62490) CALC BUN/CREAT (test code = 5 RATIO [...] code = 2219) 16 U/L COMPREHENSIVE METABOLIC [id number] 00:00:00 Test Item Value Reference Range Interpretation Comments GLUCOSE (test code = 2217) 137 MG/DL BUN (test code = 2208) 56 MG/DL CREATININE (test code = 2214) 10.21 MG/DL eGFR AMER. (test code = 6 ML/MIN/1.73 44902) eGFR NON- AMER. (test 5 ML/MIN/1.73 code = 75587) CALC BUN/CREAT (test code = 5 RATIO [...] ALT (test code = 2219) 16 U/L [id number] 00:00:00 Test Item Value Reference Range Interpretation Comments TSH, THIRD GENERATION (test >100.000 UIU/ML code = 2821) [id number] 00:00:00 Test Item Value Reference Range Interpretation Comments TSH, THIRD GENERATION (test >100.000 UIU/ML code = 2821) [id number] 00:00:00 Test Item Value Reference Range Interpretation Comments TSH, THIRD GENERATION (test >100.000 UIU/ML code = 2821) LIPID [id number] 00:00:00 Test Item Value Reference Range Interpretation Comments CHOLESTEROL (test code = 2210) 308 MG/DL TRIGLYCERIDES (test code = 2232) 280 MG/DL HDL CHOLESTEROL (test code = 2220) 66 MG/DL CALC LDL CHOL (test code = 2237) 192 MG/DL RISK RATIO LDL/HDL (test code = 2.91 RATIO 2238) LIPID [id number] 00:00:00 Test Item Value Reference Range Interpretation Comments CHOLESTEROL (test code = 2210) 308 MG/DL TRIGLYCERIDES (test code = 2232) 280 MG/DL HDL CHOLESTEROL (test code = 2220) 66 MG/DL CALC LDL CHOL (test code = 2237) 192 MG/DL RISK RATIO LDL/HDL (test code = 2.91 RATIO 2238) CBC W/AUTO [id number] 00:00:00 Test Item Value Reference Range Interpretation [...] NUCLEATED RBCS (test code = 0.00 K/UL 03841) CBC W/AUTO [id number] 00:00:00 Test Item Value Reference Range Interpretation [...] NUCLEATED RBCS (test code = 0.00 K/UL 71587) CBC W/AUTO [id number] 00:00:00 Test Item Value Reference Range Interpretation [...] NUCLEATED RBCS (test code = 0.00 K/UL 23593) COMPREHENSIVE METABOLIC [id number] 00:00:00 Test Item Value Reference Range Interpretation Comments GLUCOSE (test code = 2217) 137 MG/DL BUN (test code = 2208) 56 MG/DL CREATININE (test code = 2214) 10.21 MG/DL eGFR AMER. (test code = 6 ML/MIN/1.73 92752) eGFR NON- AMER. (test 5 ML/MIN/1.73 code = 81420) CALC BUN/CREAT (test code = 5 RATIO [...] code = 2219) 16 U/L COMPREHENSIVE METABOLIC [id number] 00:00:00 Test Item Value Reference Range Interpretation Comments GLUCOSE (test code = 2217) 137 MG/DL BUN (test code = 2208) 56 MG/DL CREATININE (test code = 2214) 10.21 MG/DL eGFR AMER. (test code = 6 ML/MIN/1.73 65129) eGFR NON- AMER. (test 5 ML/MIN/1.73 code = 10492) CALC BUN/CREAT (test code = 5 RATIO [...] (test code = 2219) 16 U/L HEMOGLOBIN [id number] 00:00:00 Test Item Value Reference Range Interpretation Comments HEMOGLOBIN A1c (test code = 77920) 5.5 % HEMOGLOBIN [id number] 00:00:00 Test Item Value Reference Range Interpretation Comments HEMOGLOBIN A1c (test code = 42069) 5.5 % HEMOGLOBIN [id number] 00:00:00 Test Item Value Reference Range Interpretation Comments HEMOGLOBIN A1c (test code = 42243) 5.5 % [id number] 00:00:00 Test Item Value Reference Range Interpretation Comments TSH, THIRD GENERATION (test >100.000 UIU/ML code = 2821) [id number] 00:00:00 Test Item Value Reference Range Interpretation Comments TSH, THIRD GENERATION (test >100.000 UIU/ML code = 2821) [id number] 00:00:00 Test Item Value Reference Range Interpretation Comments TSH, THIRD GENERATION (test >100.000 UIU/ML code = 2821) HEMOGLOBIN [id number] 00:00:00 Test Item Value Reference Range Interpretation Comments HEMOGLOBIN A1c (test code = 93478) 5.5 % HEMOGLOBIN [id number] 00:00:00 Test Item Value Reference Range Interpretation Comments HEMOGLOBIN A1c (test code = 87977) 5.5 % HEMOGLOBIN [id number] 00:00:00 Test Item Value Reference Range Interpretation Comments HEMOGLOBIN A1c (test code = 19813) 5.5 % [id number] 00:00:00 Test Item Value Reference Range Interpretation Comments TSH, THIRD GENERATION (test >100.000 UIU/ML code = 2821) [id number] 00:00:00 Test Item Value Reference Range Interpretation Comments TSH, THIRD GENERATION (test >100.000 UIU/ML code = 2821) [id number] 00:00:00 Test Item Value Reference Range Interpretation Comments TSH, THIRD GENERATION (test >100.000 UIU/ML code = 2821) HEMOGLOBIN [id number] 00:00:00 Test Item Value Reference Range Interpretation Comments HEMOGLOBIN A1c (test code = 91946) 5.5 % HEMOGLOBIN [id number] 00:00:00 Test Item Value Reference Range Interpretation Comments HEMOGLOBIN A1c (test code = 05489) 5.5 % HEMOGLOBIN [id number] 00:00:00 Test Item Value Reference Range Interpretation Comments HEMOGLOBIN A1c (test code = 75236) 5.5 % HEMOGLOBIN [id number] 00:00:00 Test Item Value Reference Range Interpretation Comments HEMOGLOBIN A1c (test code = 06297) 5.5 % HEMOGLOBIN [id number] 00:00:00 Test Item Value Reference Range Interpretation Comments HEMOGLOBIN A1c (test code = 05575) 5.5 % [id number] 00:00:00 Test Item Value Reference Range Interpretation Comments TSH, THIRD GENERATION (test >100.000 UIU/ML code = 2821) [id number] 00:00:00 Test Item Value Reference Range Interpretation Comments TSH, THIRD GENERATION (test >100.000 UIU/ML code = 2821) [id number] 00:00:00 Test Item Value Reference Range Interpretation Comments TSH, THIRD GENERATION (test >100.000 UIU/ML code = 2821) [id number] 00:00:00 Test Item Value Reference Range Interpretation Comments TSH, THIRD GENERATION (test >100.000 UIU/ML code = 2821) [id number] 00:00:00 Test Item Value Reference Range Interpretation Comments TSH, THIRD GENERATION (test >100.000 UIU/ML code = 2821) HEMOGLOBIN [id number] 00:00:00 Test Item Value Reference Range Interpretation Comments HEMOGLOBIN A1c (test code = 75809) 5.5 % HEMOGLOBIN [id number] 00:00:00 Test Item Value Reference Range Interpretation Comments HEMOGLOBIN A1c (test code = 14605) 5.5 % HEMOGLOBIN [id number] 00:00:00 Test Item Value Reference Range Interpretation Comments HEMOGLOBIN A1c (test code = 18332) 5.5 % [id number] 00:00:00 Test Item Value Reference Range Interpretation Comments TSH, THIRD GENERATION (test >100.000 UIU/ML code = 2821) [id number] 00:00:00 Test Item Value Reference Range Interpretation Comments TSH, THIRD GENERATION (test >100.000 UIU/ML code = 2821) [id number] 00:00:00 Test Item Value Reference Range Interpretation Comments TSH, THIRD GENERATION (test >100.000 UIU/ML code = 2821) HEMOGLOBIN [id number] 00:00:00 Test Item Value Reference Range Interpretation Comments HEMOGLOBIN A1c (test code = 14475) 5.5 % HEMOGLOBIN [id number] 00:00:00 Test Item Value Reference Range Interpretation Comments HEMOGLOBIN A1c (test code = 04490) 5.5 % HEMOGLOBIN [id number] 00:00:00 Test Item Value Reference Range Interpretation Comments HEMOGLOBIN A1c (test code = 63351) 5.5 % [id number] 00:00:00 Test Item Value Reference Range Interpretation Comments TSH, THIRD GENERATION (test >100.000 UIU/ML code = 2821) [id number] 00:00:00 Test Item Value Reference Range Interpretation Comments TSH, THIRD GENERATION (test >100.000 UIU/ML code = 2821) [id number] 00:00:00 Test Item Value Reference Range Interpretation Comments TSH, THIRD GENERATION (test >100.000 UIU/ML code = 2821) HEMOGLOBIN [id number] 00:00:00 Test Item Value Reference Range Interpretation Comments HEMOGLOBIN A1c (test code = 73659) 5.5 % HEMOGLOBIN [id number] 00:00:00 Test Item Value Reference Range Interpretation Comments HEMOGLOBIN A1c (test code = 55142) 5.5 % HEMOGLOBIN [id number] 00:00:00 Test Item Value Reference Range Interpretation Comments HEMOGLOBIN A1c (test code = 98599) 5.5 % [id number] 00:00:00 Test Item Value Reference Range Interpretation Comments TSH, THIRD GENERATION (test >100.000 UIU/ML code = 2821) [id number] 00:00:00 Test Item Value Reference Range Interpretation Comments TSH, THIRD GENERATION (test >100.000 UIU/ML code = 2821) [id number] 00:00:00 Test Item Value Reference Range Interpretation Comments TSH, THIRD GENERATION (test >100.000 UIU/ML code = 2821) HEMOGLOBIN [id number] 00:00:00 Test Item Value Reference Range Interpretation Comments HEMOGLOBIN A1c (test code = 36240) 5.5 % HEMOGLOBIN [id number] 00:00:00 Test Item Value Reference Range Interpretation Comments HEMOGLOBIN A1c (test code = 20439) 5.5 % HEMOGLOBIN [id number] 00:00:00 Test Item Value Reference Range Interpretation Comments HEMOGLOBIN A1c (test code = 61318) 5.5 % [id number] 00:00:00 Test Item Value Reference Range Interpretation Comments TSH, THIRD GENERATION (test >100.000 UIU/ML code = 2821) [id number] 00:00:00 Test Item Value Reference Range Interpretation Comments TSH, THIRD GENERATION (test >100.000 UIU/ML code = 2821) [id number] 00:00:00 Test Item Value Reference Range Interpretation Comments TSH, THIRD GENERATION (test >100.000 UIU/ML code = 2821) CBC W/AUTO [id number] 00:00:00 Test Item Value Reference Range Interpretation [...] code = 1015) 298 K/UL CBC W/AUTO [id number] 00:00:00 Test Item Value Reference Range Interpretation [...] code = 1015) 298 K/UL CBC W/AUTO [id number] 00:00:00 Test Item Value Reference Range Interpretation [...] code = 1015) 298 K/UL COMPREHENSIVE METABOLIC [id number] 00:00:00 Test Item Value Reference Range Interpretation Comments GLUCOSE (test code = 2217) 228 MG/DL BUN (test code = 2208) 23 MG/DL CREATININE (test code = 2214) 5.99 MG/DL eGFR AMER. (test code 11 ML/MIN/1.73 = 47124) eGFR NON- AMER. (test 10 ML/MIN/1.73 code = 72146) CALC BUN/CREAT (test code = 4 RATIO [...] code = 2219) 24 U/L COMPREHENSIVE METABOLIC [id number] 00:00:00 Test Item Value Reference Range Interpretation Comments GLUCOSE (test code = 2217) 228 MG/DL BUN (test code = 2208) 23 MG/DL CREATININE (test code = 2214) 5.99 MG/DL eGFR AMER. (test code 11 ML/MIN/1.73 = 82769) eGFR NON- AMER. (test 10 ML/MIN/1.73 code = 90529) CALC BUN/CREAT (test code = 4 RATIO [...] (test code = 2219) 24 U/L LIPID [id number] 00:00:00 Test Item Value Reference Range Interpretation Comments CHOLESTEROL (test code = 2210) 335 MG/DL TRIGLYCERIDES (test code = 2232) 446 MG/DL HDL CHOLESTEROL (test code = 73 MG/DL 2220) CALC LDL CHOL (test code = 2237) (NOTE) MG/DL RISK RATIO LDL/HDL (test code = (NOTE) RATIO 2238) LIPID [id number] 00:00:00 Test Item Value Reference Range Interpretation Comments CHOLESTEROL (test code = 2210) 335 MG/DL TRIGLYCERIDES (test code = 2232) 446 MG/DL HDL CHOLESTEROL (test code = 73 MG/DL 2220) CALC LDL CHOL (test code = 2237) (NOTE) MG/DL RISK RATIO LDL/HDL (test code = (NOTE) RATIO 2238) [id number] 00:00:00 Test Item Value Reference Range Interpretation Comments TSH, THIRD GENERATION (test >100.000 UIU/ML code = 2821) [id number] 00:00:00 Test Item Value Reference Range Interpretation Comments TSH, THIRD GENERATION (test >100.000 UIU/ML code = 2821) [id number] 00:00:00 Test Item Value Reference Range Interpretation Comments TSH, THIRD GENERATION (test >100.000 UIU/ML code = 2821) CBC W/AUTO [id number] 00:00:00 Test Item Value Reference Range Interpretation [...] code = 1015) 298 K/UL CBC W/AUTO [id number] 00:00:00 Test Item Value Reference Range Interpretation [...] code = 1015) 298 K/UL CBC W/AUTO [id number] 00:00:00 Test Item Value Reference Range Interpretation [...] code = 1015) 298 K/UL COMPREHENSIVE METABOLIC [id number] 00:00:00 Test Item Value Reference Range Interpretation Comments GLUCOSE (test code = 2217) 228 MG/DL BUN (test code = 2208) 23 MG/DL CREATININE (test code = 2214) 5.99 MG/DL eGFR AMER. (test code 11 ML/MIN/1.73 = 30726) eGFR NON- AMER. (test 10 ML/MIN/1.73 code = 42738) CALC BUN/CREAT (test code = 4 RATIO [...] code = 2219) 24 U/L COMPREHENSIVE METABOLIC [id number] 00:00:00 Test Item Value Reference Range Interpretation Comments GLUCOSE (test code = 2217) 228 MG/DL BUN (test code = 2208) 23 MG/DL CREATININE (test code = 2214) 5.99 MG/DL eGFR AMER. (test code 11 ML/MIN/1.73 = 69832) eGFR NON- AMER. (test 10 ML/MIN/1.73 code = 38570) CALC BUN/CREAT (test code = 4 RATIO [...] (test code = 2219) 24 U/L LIPID [id number] 00:00:00 Test Item Value Reference Range Interpretation Comments CHOLESTEROL (test code = 2210) 335 MG/DL TRIGLYCERIDES (test code = 2232) 446 MG/DL HDL CHOLESTEROL (test code = 73 MG/DL 2220) CALC LDL CHOL (test code = 2237) (NOTE) MG/DL RISK RATIO LDL/HDL (test code = (NOTE) RATIO 2238) LIPID [id number] 00:00:00 Test Item Value Reference Range Interpretation Comments CHOLESTEROL (test code = 2210) 335 MG/DL TRIGLYCERIDES (test code = 2232) 446 MG/DL HDL CHOLESTEROL (test code = 73 MG/DL 2220) CALC LDL CHOL (test code = 2237) (NOTE) MG/DL RISK RATIO LDL/HDL (test code = (NOTE) RATIO 2238) [id number] 00:00:00 Test Item Value Reference Range Interpretation Comments TSH, THIRD GENERATION (test >100.000 UIU/ML code = 2821) [id number] 00:00:00 Test Item Value Reference Range Interpretation Comments TSH, THIRD GENERATION (test >100.000 UIU/ML code = 2821) [id number] 00:00:00 Test Item Value Reference Range Interpretation Comments TSH, THIRD GENERATION (test >100.000 UIU/ML code = 2821) CBC W/AUTO [id number] 00:00:00 Test Item Value Reference Range Interpretation [...] code = 1015) 298 K/UL CBC W/AUTO [id number] 00:00:00 Test Item Value Reference Range Interpretation [...] code = 1015) 298 K/UL CBC W/AUTO [id number] 00:00:00 Test Item Value Reference Range Interpretation [...] code = 1015) 298 K/UL CBC W/AUTO [id number] 00:00:00 Test Item Value Reference Range Interpretation [...] code = 1015) 298 K/UL CBC W/AUTO [id number] 00:00:00 Test Item Value Reference Range Interpretation [...] code = 1015) 298 K/UL COMPREHENSIVE METABOLIC [id number] 00:00:00 Test Item Value Reference Range Interpretation Comments GLUCOSE (test code = 2217) 228 MG/DL BUN (test code = 2208) 23 MG/DL CREATININE (test code = 2214) 5.99 MG/DL eGFR AMER. (test code 11 ML/MIN/1.73 = 95856) eGFR NON- AMER. (test 10 ML/MIN/1.73 code = 01365) CALC BUN/CREAT (test code = 4 RATIO [...] code = 2219) 24 U/L COMPREHENSIVE METABOLIC [id number] 00:00:00 Test Item Value Reference Range Interpretation Comments GLUCOSE (test code = 2217) 228 MG/DL BUN (test code = 2208) 23 MG/DL CREATININE (test code = 2214) 5.99 MG/DL eGFR AMER. (test code 11 ML/MIN/1.73 = 89943) eGFR NON- AMER. (test 10 ML/MIN/1.73 code = 05860) CALC BUN/CREAT (test code = 4 RATIO [...] (test code = 2219) 24 U/L LIPID [id number] 00:00:00 Test Item Value Reference Range Interpretation Comments CHOLESTEROL (test code = 2210) 335 MG/DL TRIGLYCERIDES (test code = 2232) 446 MG/DL HDL CHOLESTEROL (test code = 73 MG/DL 2220) CALC LDL CHOL (test code = 2237) (NOTE) MG/DL RISK RATIO LDL/HDL (test code = (NOTE) RATIO 2238) LIPID [id number] 00:00:00 Test Item Value Reference Range Interpretation Comments CHOLESTEROL (test code = 2210) 335 MG/DL TRIGLYCERIDES (test code = 2232) 446 MG/DL HDL CHOLESTEROL (test code = 73 MG/DL 2220) CALC LDL CHOL (test code = 2237) (NOTE) MG/DL RISK RATIO LDL/HDL (test code = (NOTE) RATIO 2238) [id number] 00:00:00 Test Item Value Reference Range Interpretation Comments TSH, THIRD GENERATION (test >100.000 UIU/ML code = 2821) [id number] 00:00:00 Test Item Value Reference Range Interpretation Comments TSH, THIRD GENERATION (test >100.000 UIU/ML code = 2821) [id number] 00:00:00 Test Item Value Reference Range Interpretation Comments TSH, THIRD GENERATION (test >100.000 UIU/ML code = 2821) COMPREHENSIVE METABOLIC [id number] 00:00:00 Test Item Value Reference Range Interpretation Comments GLUCOSE (test code = 2217) 228 MG/DL BUN (test code = 2208) 23 MG/DL CREATININE (test code = 2214) 5.99 MG/DL eGFR AMER. (test code 11 ML/MIN/1.73 = 14391) eGFR NON- AMER. (test 10 ML/MIN/1.73 code = 74867) CALC BUN/CREAT (test code = 4 RATIO [...] (test code = 2219) 24 U/L LIPID [id number] 00:00:00 Test Item Value Reference Range Interpretation Comments CHOLESTEROL (test code = 2210) 335 MG/DL TRIGLYCERIDES (test code = 2232) 446 MG/DL HDL CHOLESTEROL (test code = 73 MG/DL 2220) CALC LDL CHOL (test code = 2237) (NOTE) MG/DL RISK RATIO LDL/HDL (test code = (NOTE) RATIO 2238) [id number] 00:00:00 Test Item Value Reference Range Interpretation Comments TSH, THIRD GENERATION (test >100.000 UIU/ML code = 2821) [id number] 00:00:00 Test Item Value Reference Range Interpretation Comments TSH, THIRD GENERATION (test >100.000 UIU/ML code = 2821) CBC W/AUTO [id number] 00:00:00 Test Item Value Reference Range Interpretation [...] code = 1015) 298 K/UL CBC W/AUTO [id number] 00:00:00 Test Item Value Reference Range Interpretation [...] code = 1015) 298 K/UL CBC W/AUTO [id number] 00:00:00 Test Item Value Reference Range Interpretation [...] code = 1015) 298 K/UL COMPREHENSIVE METABOLIC [id number] 00:00:00 Test Item Value Reference Range Interpretation Comments GLUCOSE (test code = 2217) 228 MG/DL BUN (test code = 2208) 23 MG/DL CREATININE (test code = 2214) 5.99 MG/DL eGFR AMER. (test code 11 ML/MIN/1.73 = 84185) eGFR NON- AMER. (test 10 ML/MIN/1.73 code = 18364) CALC BUN/CREAT (test code = 4 RATIO [...] code = 2219) 24 U/L COMPREHENSIVE METABOLIC [id number] 00:00:00 Test Item Value Reference Range Interpretation Comments GLUCOSE (test code = 2217) 228 MG/DL BUN (test code = 2208) 23 MG/DL CREATININE (test code = 2214) 5.99 MG/DL eGFR AMER. (test code 11 ML/MIN/1.73 = 10695) eGFR NON- AMER. (test 10 ML/MIN/1.73 code = 81085) CALC BUN/CREAT (test code = 4 RATIO [...] (test code = 2219) 24 U/L LIPID [id number] 00:00:00 Test Item Value Reference Range Interpretation Comments CHOLESTEROL (test code = 2210) 335 MG/DL TRIGLYCERIDES (test code = 2232) 446 MG/DL HDL CHOLESTEROL (test code = 73 MG/DL 2219) CALC LDL CHOL (test code = 2237) (NOTE) MG/DL RISK RATIO LDL/HDL (test code = (NOTE) RATIO 2238) LIPID [id number] 00:00:00 Test Item Value Reference Range Interpretation Comments CHOLESTEROL (test code = 2210) 335 MG/DL TRIGLYCERIDES (test code = 2232) 446 MG/DL HDL CHOLESTEROL (test code = 73 MG/DL 2220) CALC LDL CHOL (test code = 2237) (NOTE) MG/DL RISK RATIO LDL/HDL (test code = (NOTE) RATIO 2238) [id number] 00:00:00 Test Item Value Reference Range Interpretation Comments TSH, THIRD GENERATION (test >100.000 UIU/ML code = 2821) [id number] 00:00:00 Test Item Value Reference Range Interpretation Comments TSH, THIRD GENERATION (test >100.000 UIU/ML code = 2821) [id number] 00:00:00 Test Item Value Reference Range Interpretation Comments TSH, THIRD GENERATION (test >100.000 UIU/ML code = 2821) CBC W/AUTO [id number] 00:00:00 Test Item Value Reference Range Interpretation [...] code = 1015) 298 K/UL CBC W/AUTO [id number] 00:00:00 Test Item Value Reference Range Interpretation [...] code = 1015) 298 K/UL CBC W/AUTO [id number] 00:00:00 Test Item Value Reference Range Interpretation [...] code = 1015) 298 K/UL COMPREHENSIVE METABOLIC [id number] 00:00:00 Test Item Value Reference Range Interpretation Comments GLUCOSE (test code = 2217) 228 MG/DL BUN (test code = 2208) 23 MG/DL CREATININE (test code = 2214) 5.99 MG/DL eGFR AMER. (test code 11 ML/MIN/1.73 = 54940) eGFR NON- AMER. (test 10 ML/MIN/1.73 code = 20171) CALC BUN/CREAT (test code = 4 RATIO [...] code = 2219) 24 U/L COMPREHENSIVE METABOLIC [id number] 00:00:00 Test Item Value Reference Range Interpretation Comments GLUCOSE (test code = 2217) 228 MG/DL BUN (test code = 2208) 23 MG/DL CREATININE (test code = 2214) 5.99 MG/DL eGFR AMER. (test code 11 ML/MIN/1.73 = 76097) eGFR NON- AMER. (test 10 ML/MIN/1.73 code = 70615) CALC BUN/CREAT (test code = 4 RATIO [...] (test code = 2219) 24 U/L LIPID [id number] 00:00:00 Test Item Value Reference Range Interpretation Comments CHOLESTEROL (test code = 2210) 335 MG/DL TRIGLYCERIDES (test code = 2232) 446 MG/DL HDL CHOLESTEROL (test code = 73 MG/DL 2220) CALC LDL CHOL (test code = 2237) (NOTE) MG/DL RISK RATIO LDL/HDL (test code = (NOTE) RATIO 2238) LIPID [id number] 00:00:00 Test Item Value Reference Range Interpretation Comments CHOLESTEROL (test code = 2210) 335 MG/DL TRIGLYCERIDES (test code = 2232) 446 MG/DL HDL CHOLESTEROL (test code = 73 MG/DL 2220) CALC LDL CHOL (test code = 2237) (NOTE) MG/DL RISK RATIO LDL/HDL (test code = (NOTE) RATIO 2238) [id number] 00:00:00 Test Item Value Reference Range Interpretation Comments TSH, THIRD GENERATION (test >100.000 UIU/ML code = 2821) [id number] 00:00:00 Test Item Value Reference Range Interpretation Comments TSH, THIRD GENERATION (test >100.000 UIU/ML code = 2821) [id number] 00:00:00 Test Item Value Reference Range Interpretation Comments TSH, THIRD GENERATION (test >100.000 UIU/ML code = 2821) CBC W/AUTO [id number] 00:00:00 Test Item Value Reference Range Interpretation [...] code = 1015) 298 K/UL CBC W/AUTO [id number] 00:00:00 Test Item Value Reference Range Interpretation [...] code = 1015) 298 K/UL CBC W/AUTO [id number] 00:00:00 Test Item Value Reference Range Interpretation [...] code = 1015) 298 K/UL COMPREHENSIVE METABOLIC [id number] 00:00:00 Test Item Value Reference Range Interpretation Comments GLUCOSE (test code = 2217) 228 MG/DL BUN (test code = 2208) 23 MG/DL CREATININE (test code = 2214) 5.99 MG/DL eGFR AMER. (test code 11 ML/MIN/1.73 = 75499) eGFR NON- AMER. (test 10 ML/MIN/1.73 code = 45040) CALC BUN/CREAT (test code = 4 RATIO [...] code = 2219) 24 U/L COMPREHENSIVE METABOLIC [id number] 00:00:00 Test Item Value Reference Range Interpretation Comments GLUCOSE (test code = 2217) 228 MG/DL BUN (test code = 2208) 23 MG/DL CREATININE (test code = 2214) 5.99 MG/DL eGFR AMER. (test code 11 ML/MIN/1.73 = 75023) eGFR NON- AMER. (test 10 ML/MIN/1.73 code = 82553) CALC BUN/CREAT (test code = 4 RATIO [...] (test code = 2219) 24 U/L LIPID [id number] 00:00:00 Test Item Value Reference Range Interpretation Comments CHOLESTEROL (test code = 2210) 335 MG/DL TRIGLYCERIDES (test code = 2232) 446 MG/DL HDL CHOLESTEROL (test code = 73 MG/DL 2220) CALC LDL CHOL (test code = 2237) (NOTE) MG/DL RISK RATIO LDL/HDL (test code = (NOTE) RATIO 2238) LIPID [id number] 00:00:00 Test Item Value Reference Range Interpretation Comments CHOLESTEROL (test code = 2210) 335 MG/DL TRIGLYCERIDES (test code = 2232) 446 MG/DL HDL CHOLESTEROL (test code = 73 MG/DL 2220) CALC LDL CHOL (test code = 2237) (NOTE) MG/DL RISK RATIO LDL/HDL (test code = (NOTE) RATIO 2238) [id number] 00:00:00 Test Item Value Reference Range Interpretation Comments TSH, THIRD GENERATION (test >100.000 UIU/ML code = 2821) [id number] 00:00:00 Test Item Value Reference Range Interpretation Comments TSH, THIRD GENERATION (test >100.000 UIU/ML code = 2821) [id number] 00:00:00 Test Item Value Reference Range Interpretation Comments TSH, THIRD GENERATION (test >100.000 UIU/ML code = 2821) CBC W/AUTO [id number] 00:00:00 Test Item Value Reference Range Interpretation [...] code = 1015) 298 K/UL CBC W/AUTO [id number] 00:00:00 Test Item Value Reference Range Interpretation [...] code = 1015) 298 K/UL CBC W/AUTO [id number] 00:00:00 Test Item Value Reference Range Interpretation [...] code = 1015) 298 K/UL COMPREHENSIVE METABOLIC [id number] 00:00:00 Test Item Value Reference Range Interpretation Comments GLUCOSE (test code = 2217) 228 MG/DL BUN (test code = 2208) 23 MG/DL CREATININE (test code = 2214) 5.99 MG/DL eGFR AMER. (test code 11 ML/MIN/1.73 = 80275) eGFR NON- AMER. (test 10 ML/MIN/1.73 code = 61767) CALC BUN/CREAT (test code = 4 RATIO [...] code = 2219) 24 U/L COMPREHENSIVE METABOLIC [id number] 00:00:00 Test Item Value Reference Range Interpretation Comments GLUCOSE (test code = 2217) 228 MG/DL BUN (test code = 2208) 23 MG/DL CREATININE (test code = 2214) 5.99 MG/DL eGFR AMER. (test code 11 ML/MIN/1.73 = 94175) eGFR NON- AMER. (test 10 ML/MIN/1.73 code = 17215) CALC BUN/CREAT (test code = 4 RATIO [...] (test code = 2219) 24 U/L LIPID [id number] 00:00:00 Test Item Value Reference Range Interpretation Comments CHOLESTEROL (test code = 2210) 335 MG/DL TRIGLYCERIDES (test code = 2232) 446 MG/DL HDL CHOLESTEROL (test code = 73 MG/DL 2220) CALC LDL CHOL (test code = 2237) (NOTE) MG/DL RISK RATIO LDL/HDL (test code = (NOTE) RATIO 2238) LIPID [id number] 00:00:00 Test Item Value Reference Range Interpretation Comments CHOLESTEROL (test code = 2210) 335 MG/DL TRIGLYCERIDES (test code = 2232) 446 MG/DL HDL CHOLESTEROL (test code = 73 MG/DL 2220) CALC LDL CHOL (test code = 2237) (NOTE) MG/DL RISK RATIO LDL/HDL (test code = (NOTE) RATIO 2238) [id number] 00:00:00 Test Item Value Reference Range Interpretation Comments TSH, THIRD GENERATION (test >100.000 UIU/ML code = 2821) [id number] 00:00:00 Test Item Value Reference Range Interpretation Comments TSH, THIRD GENERATION (test >100.000 UIU/ML code = 2821) [id number] 00:00:00 Test Item Value Reference Range Interpretation Comments TSH, THIRD GENERATION (test >100.000 UIU/ML code = 2821) [id number] 00:00:00 Test Item Value Reference Range Interpretation Comments TSH, THIRD GENERATION (test >100.000 UIU/ML code = 2821) [id number] 00:00:00 Test Item Value Reference Range Interpretation Comments TSH, THIRD GENERATION (test >100.000 UIU/ML code = 2821) [id number] 00:00:00 Test Item Value Reference Range Interpretation Comments TSH, THIRD GENERATION (test >100.000 UIU/ML code = 2821) LIPID [id number] 00:00:00 Test Item Value Reference Range Interpretation Comments CHOLESTEROL (test code = 2210) 316 MG/DL TRIGLYCERIDES (test code = 2232) 547 MG/DL HDL CHOLESTEROL (test code = 54 MG/DL 2220) CALC LDL CHOL (test code = 2237) (NOTE) MG/DL RISK RATIO LDL/HDL (test code = (NOTE) RATIO 2238) LIPID [id number] 00:00:00 Test Item Value Reference Range Interpretation Comments CHOLESTEROL (test code = 2210) 316 MG/DL TRIGLYCERIDES (test code = 2232) 547 MG/DL HDL CHOLESTEROL (test code = 54 MG/DL 2220) CALC LDL CHOL (test code = 2237) (NOTE) MG/DL RISK RATIO LDL/HDL (test code = (NOTE) RATIO 2238) [id number] 00:00:00 Test Item Value Reference Range Interpretation Comments TSH, THIRD GENERATION (test >100.000 UIU/ML code = 2821) [id number] 00:00:00 Test Item Value Reference Range Interpretation Comments TSH, THIRD GENERATION (test >100.000 UIU/ML code = 2821) [id number] 00:00:00 Test Item Value Reference Range Interpretation Comments TSH, THIRD GENERATION (test >100.000 UIU/ML code = 2821) LIPID [id number] 00:00:00 Test Item Value Reference Range Interpretation Comments CHOLESTEROL (test code = 2210) 316 MG/DL TRIGLYCERIDES (test code = 2232) 547 MG/DL HDL CHOLESTEROL (test code = 54 MG/DL 2220) CALC LDL CHOL (test code = 2237) (NOTE) MG/DL RISK RATIO LDL/HDL (test code = (NOTE) RATIO 2238) LIPID [id number] 00:00:00 Test Item Value Reference Range Interpretation Comments CHOLESTEROL (test code = 2210) 316 MG/DL TRIGLYCERIDES (test code = 2232) 547 MG/DL HDL CHOLESTEROL (test code = 54 MG/DL 2220) CALC LDL CHOL (test code = 2237) (NOTE) MG/DL RISK RATIO LDL/HDL (test code = (NOTE) RATIO 2238) [id number] 00:00:00 Test Item Value Reference Range Interpretation Comments TSH, THIRD GENERATION (test >100.000 UIU/ML code = 2821) [id number] 00:00:00 Test Item Value Reference Range Interpretation Comments TSH, THIRD GENERATION (test >100.000 UIU/ML code = 2821) [id number] 00:00:00 Test Item Value Reference Range Interpretation Comments TSH, THIRD GENERATION (test >100.000 UIU/ML code = 2821) [id number] 00:00:00 Test Item Value Reference Range Interpretation Comments TSH, THIRD GENERATION (test >100.000 UIU/ML code = 2821) LIPID [id number] 00:00:00 Test Item Value Reference Range Interpretation Comments CHOLESTEROL (test code = 2210) 316 MG/DL TRIGLYCERIDES (test code = 2232) 547 MG/DL HDL CHOLESTEROL (test code = 54 MG/DL 2220) CALC LDL CHOL (test code = 2237) (NOTE) MG/DL RISK RATIO LDL/HDL (test code = (NOTE) RATIO 2238) LIPID [id number] 00:00:00 Test Item Value Reference Range Interpretation Comments CHOLESTEROL (test code = 2210) 316 MG/DL TRIGLYCERIDES (test code = 2232) 547 MG/DL HDL CHOLESTEROL (test code = 54 MG/DL 2220) CALC LDL CHOL (test code = 2237) (NOTE) MG/DL RISK RATIO LDL/HDL (test code = (NOTE) RATIO 2238) [id number] 00:00:00 Test Item Value Reference Range Interpretation Comments TSH, THIRD GENERATION (test >100.000 UIU/ML code = 2821) LIPID [id number] 00:00:00 Test Item Value Reference Range Interpretation Comments CHOLESTEROL (test code = 2210) 316 MG/DL TRIGLYCERIDES (test code = 2232) 547 MG/DL HDL CHOLESTEROL (test code = 54 MG/DL 2220) CALC LDL CHOL (test code = 2237) (NOTE) MG/DL RISK RATIO LDL/HDL (test code = (NOTE) RATIO 2238) [id number] 00:00:00 Test Item Value Reference Range Interpretation Comments TSH, THIRD GENERATION (test >100.000 UIU/ML code = 2821) [id number] 00:00:00 Test Item Value Reference Range Interpretation Comments TSH, THIRD GENERATION (test >100.000 UIU/ML code = 2821) [id number] 00:00:00 Test Item Value Reference Range Interpretation Comments TSH, THIRD GENERATION (test >100.000 UIU/ML code = 2821) LIPID [id number] 00:00:00 Test Item Value Reference Range Interpretation Comments CHOLESTEROL (test code = 2210) 316 MG/DL TRIGLYCERIDES (test code = 2232) 547 MG/DL HDL CHOLESTEROL (test code = 54 MG/DL 2220) CALC LDL CHOL (test code = 2237) (NOTE) MG/DL RISK RATIO LDL/HDL (test code = (NOTE) RATIO 2238) LIPID [id number] 00:00:00 Test Item Value Reference Range Interpretation Comments CHOLESTEROL (test code = 2210) 316 MG/DL TRIGLYCERIDES (test code = 2232) 547 MG/DL HDL CHOLESTEROL (test code = 54 MG/DL 2220) CALC LDL CHOL (test code = 2237) (NOTE) MG/DL RISK RATIO LDL/HDL (test code = (NOTE) RATIO 2238) [id number] 00:00:00 Test Item Value Reference Range Interpretation Comments TSH, THIRD GENERATION (test >100.000 UIU/ML code = 2821) [id number] 00:00:00 Test Item Value Reference Range Interpretation Comments TSH, THIRD GENERATION (test >100.000 UIU/ML code = 2821) [id number] 00:00:00 Test Item Value Reference Range Interpretation Comments TSH, THIRD GENERATION (test >100.000 UIU/ML code = 2821) LIPID [id number] 00:00:00 Test Item Value Reference Range Interpretation Comments CHOLESTEROL (test code = 2210) 316 MG/DL TRIGLYCERIDES (test code = 2232) 547 MG/DL HDL CHOLESTEROL (test code = 54 MG/DL 2220) CALC LDL CHOL (test code = 2237) (NOTE) MG/DL RISK RATIO LDL/HDL (test code = (NOTE) RATIO 2238) LIPID [id number] 00:00:00 Test Item Value Reference Range Interpretation Comments CHOLESTEROL (test code = 2210) 316 MG/DL TRIGLYCERIDES (test code = 2232) 547 MG/DL HDL CHOLESTEROL (test code = 54 MG/DL 2220) CALC LDL CHOL (test code = 2237) (NOTE) MG/DL RISK RATIO LDL/HDL (test code = (NOTE) RATIO 2238) [id number] 00:00:00 Test Item Value Reference Range Interpretation Comments TSH, THIRD GENERATION (test >100.000 UIU/ML code = 2821) [id number] 00:00:00 Test Item Value Reference Range Interpretation Comments TSH, THIRD GENERATION (test >100.000 UIU/ML code = 2821) [id number] 00:00:00 Test Item Value Reference Range Interpretation Comments TSH, THIRD GENERATION (test >100.000 UIU/ML code = 2821) LIPID [id number] 00:00:00 Test Item Value Reference Range Interpretation Comments CHOLESTEROL (test code = 2210) 316 MG/DL TRIGLYCERIDES (test code = 2232) 547 MG/DL HDL CHOLESTEROL (test code = 54 MG/DL 2220) CALC LDL CHOL (test code = 2237) (NOTE) MG/DL RISK RATIO LDL/HDL (test code = (NOTE) RATIO 2238) LIPID [id number] 00:00:00 Test Item Value Reference Range Interpretation Comments CHOLESTEROL (test code = 2210) 316 MG/DL TRIGLYCERIDES (test code = 2232) 547 MG/DL HDL CHOLESTEROL (test code = 54 MG/DL 2220) CALC LDL CHOL (test code = 2237) (NOTE) MG/DL RISK RATIO LDL/HDL (test code = (NOTE) RATIO 2238) [id number] 00:00:00 Test Item Value Reference Range Interpretation Comments TSH, THIRD GENERATION (test >100.000 UIU/ML code = 2821) [id number] 00:00:00 Test Item Value Reference Range Interpretation Comments TSH, THIRD GENERATION (test >100.000 UIU/ML code = 2821) [id number] 00:00:00 Test Item Value Reference Range Interpretation Comments TSH, THIRD GENERATION (test >100.000 UIU/ML code = 2821) LIPID [id number] 00:00:00 Test Item Value Reference Range Interpretation Comments CHOLESTEROL (test code = 2210) 316 MG/DL TRIGLYCERIDES (test code = 2232) 547 MG/DL HDL CHOLESTEROL (test code = 54 MG/DL 2220) CALC LDL CHOL (test code = 2237) (NOTE) MG/DL RISK RATIO LDL/HDL (test code = (NOTE) RATIO 2238) LIPID [id number] 00:00:00 Test Item Value Reference Range Interpretation [...] code = Normal 762) HEPATITIS B SURFACE [id number] 09:48:00 Test Item Value Reference Range Interpretation [...] (BEAKER) (test code = 1+ few 966) [id number] 05:55:00 Test Item Value Reference Range Interpretation Comments PHOSPHORUS (BEAKER) (test code = 9.2 mg/dL 2.3-4.7 HH 604) Quality Control Analyst ID - RA MBASIC METABOLIC [id number] 05:04:00 Test Item Value Reference Range Interpretation [...] S NOT APPLICABLE FOR DIALYSIS PATIEN TS. Quality Control Analyst ID Orestes KNAPP [facility] WITH PLATELET COUNT + MANUAL [id number] 04:42:00 Test Item Value Reference Range Interpretation [...] (BEAKER) (test code = 413) BASIC METABOLIC [id number] 03:00:00 Test Item Value Reference Range Interpretation [...] S NOT APPLICABLE FOR DIALYSIS PATIEN TS. Quality Control Analyst ID - RA [id number] 02:58:00 Test Item Value Reference Range Interpretation Comments PHOSPHORUS (BEAKER) (test code = 7.4 mg/dL 2.3-4.7 H 604) Quality Control Analyst ID - RA [facility]BC W/PLT COUNT & AUTO [id number] 02:38:00 Test Item Value Reference Range Interpretation [...] PERCENT (BEAKER) (test code = 2801) SARS-COV2/RT-PCR ([facility])2019-12-14 11:10:00 Test Item Value Reference Range Interpretation Comments SARS-COV2/RT-PCR (test code Negative Not Detected, Negative, = 9670049) See external report for linked test SARS-COV-2 PERFORMING LAB [facility] (test code = 1451803) Negative results do not preclude SARS-CoV-2 infection [...] of the Act.Fact Sheet for Healthcare Pro viders:https://www.MediKeeper/Documents/Xpert%20Xpress%20SARS%20CoV-2/Fact%20Sh eets/3023802%58GDRW-UDR-8%20HEALTHCARE%20PROVIDERS%20FACT%20SHEET.pdfFact Sheet for Healthcare Patients:https://www.Actifio/Documents/Xpert%20Xpress%20SARS%20CoV-2/Fact%20Sheets/3023801%20SARS-COV -2%20PATIENT%20FACT%20SHEET.pdfPerforming Laboratory:[facility] [place], [place] [address]WONRC METABOLIC [id number] 09:53:00 Test Item Value Reference Range Interpretation [...] S NOT APPLICABLE FOR DIALYSIS PATIEN TS. Quality Control Analyst ID - ROSIANGPROTHROMBIN [id number] 09:39:00 Test Item Value Reference Range Interpretation [...] 0-0 (BEAKER) (test code = 413) URINE [id number] 11:01:00 Test Item Value Reference Range Interpretation Comments CULTURE (BEAKER) ENTEROCOCCUS A 40-49,000 c ol/mL (test code = 1095) FAECALIS Enterococ cus faecalis Ampicillin (test S code = 26) Linezolid (test code S = 40) Nitrofurantoin (test S code = 23) Tetracycline (test R code = 2) Vancomycin (test S code = 13) <10,000 col/mL skin floraHEMOGLOBIN [id number] 00:00:00 Test Item Value Reference Range Interpretation Comments HEMOGLOBIN A1c (test code = 73344) 6.9 % HEMOGLOBIN [id number] 00:00:00 Test Item Value Reference Range Interpretation Comments HEMOGLOBIN A1c (test code = 10962) 6.9 % HEMOGLOBIN [id number] 00:00:00 Test Item Value Reference Range Interpretation Comments HEMOGLOBIN A1c (test code = 26447) 6.9 % LIPID [id number] 00:00:00 Test Item Value Reference Range Interpretation Comments CHOLESTEROL (test code = 2210) 309 MG/DL TRIGLYCERIDES (test code = 2232) 587 MG/DL HDL CHOLESTEROL (test code = 48 MG/DL 2220) CALC LDL CHOL (test code = 2237) (NOTE) MG/DL RISK RATIO LDL/HDL (test code = (NOTE) RATIO 2238) LIPID [id number] 00:00:00 Test Item Value Reference Range Interpretation [...] THYROX. BIND. CAPAC. (test 1.5 code = 06717) T4 (THYROXINE) (test code = <1.2 UG/DL 2819) CORRECTED T4 (FTI) (test code (NOTE) UG/DL = 2820) TSH, THIRD GENERATION (test >100.000 UIU/ML code = 2821) THYROID II PROFILE (TU,T4,FTI,TSH) [ADDED]2019-10-26 00:00:00 Test Item Value Reference Range Interpretation Comments T-UPTAKE (test code = 2817) 18.4 % THYROX. BIND. CAPAC. (test 1.5 code = 47227) T4 (THYROXINE) (test code = <1.2 UG/DL 2819) CORRECTED T4 (FTI) (test code (NOTE) UG/DL = 2820) TSH, THIRD GENERATION (test >100.000 UIU/ML code = 2821) HEMOGLOBIN [id number] 00:00:00 Test Item Value Reference Range Interpretation Comments HEMOGLOBIN A1c (test code = 83598) 6.9 % HEMOGLOBIN [id number] 00:00:00 Test Item Value Reference Range Interpretation Comments HEMOGLOBIN A1c (test code = 63892) 6.9 % HEMOGLOBIN [id number] 00:00:00 Test Item Value Reference Range Interpretation Comments HEMOGLOBIN A1c (test code = 50291) 6.9 % LIPID [id number] 00:00:00 Test Item Value Reference Range Interpretation Comments CHOLESTEROL (test code = 2210) 309 MG/DL TRIGLYCERIDES (test code = 2232) 587 MG/DL HDL CHOLESTEROL (test code = 48 MG/DL 2220) CALC LDL CHOL (test code = 2237) (NOTE) MG/DL RISK RATIO LDL/HDL (test code = (NOTE) RATIO 2238) LIPID [id number] 00:00:00 Test Item Value Reference Range Interpretation [...] THYROX. BIND. CAPAC. (test 1.5 code = 07748) T4 (THYROXINE) (test code = <1.2 UG/DL 2819) CORRECTED T4 (FTI) (test code (NOTE) UG/DL = 2820) TSH, THIRD GENERATION (test >100.000 UIU/ML code = 2821) THYROID II PROFILE (TU,T4,FTI,TSH) [ADDED]2019-10-26 00:00:00 Test Item Value Reference Range Interpretation Comments T-UPTAKE (test code = 2817) 18.4 % THYROX. BIND. CAPAC. (test 1.5 code = 71811) T4 (THYROXINE) (test code = <1.2 UG/DL 2819) CORRECTED T4 (FTI) (test code (NOTE) UG/DL = 2820) TSH, THIRD GENERATION (test >100.000 UIU/ML code = 2821) HEMOGLOBIN [id number] 00:00:00 Test Item Value Reference Range Interpretation Comments HEMOGLOBIN A1c (test code = 80313) 6.9 % HEMOGLOBIN [id number] 00:00:00 Test Item Value Reference Range Interpretation Comments HEMOGLOBIN A1c (test code = 12198) 6.9 % HEMOGLOBIN [id number] 00:00:00 Test Item Value Reference Range Interpretation Comments HEMOGLOBIN A1c (test code = 92356) 6.9 % HEMOGLOBIN [id number] 00:00:00 Test Item Value Reference Range Interpretation Comments HEMOGLOBIN A1c (test code = 03050) 6.9 % HEMOGLOBIN [id number] 00:00:00 Test Item Value Reference Range Interpretation Comments HEMOGLOBIN A1c (test code = 70143) 6.9 % LIPID [id number] 00:00:00 Test Item Value Reference Range Interpretation Comments CHOLESTEROL (test code = 2210) 309 MG/DL TRIGLYCERIDES (test code = 2232) 587 MG/DL HDL CHOLESTEROL (test code = 48 MG/DL 2220) CALC LDL CHOL (test code = 2237) (NOTE) MG/DL RISK RATIO LDL/HDL (test code = (NOTE) RATIO 2238) LIPID [id number] 00:00:00 Test Item Value Reference Range Interpretation [...] THYROX. BIND. CAPAC. (test 1.5 code = 12413) T4 (THYROXINE) (test code = <1.2 UG/DL 2819) CORRECTED T4 (FTI) (test code (NOTE) UG/DL = 2820) TSH, THIRD GENERATION (test >100.000 UIU/ML code = 2821) THYROID II PROFILE (TU,T4,FTI,TSH) [ADDED]2019-10-26 00:00:00 Test Item Value Reference Range Interpretation Comments T-UPTAKE (test code = 2817) 18.4 % THYROX. BIND. CAPAC. (test 1.5 code = 81086) T4 (THYROXINE) (test code = <1.2 UG/DL 2819) CORRECTED T4 (FTI) (test code (NOTE) UG/DL = 2820) TSH, THIRD GENERATION (test >100.000 UIU/ML code = 2821) LIPID [id number] 00:00:00 Test Item Value Reference Range Interpretation [...] THYROX. BIND. CAPAC. (test 1.5 code = 33333) T4 (THYROXINE) (test code = <1.2 UG/DL 2819) CORRECTED T4 (FTI) (test code (NOTE) UG/DL = 2820) TSH, THIRD GENERATION (test >100.000 UIU/ML code = 2821) HEMOGLOBIN [id number] 00:00:00 Test Item Value Reference Range Interpretation Comments HEMOGLOBIN A1c (test code = 51866) 6.9 % HEMOGLOBIN [id number] 00:00:00 Test Item Value Reference Range Interpretation Comments HEMOGLOBIN A1c (test code = 86840) 6.9 % HEMOGLOBIN [id number] 00:00:00 Test Item Value Reference Range Interpretation Comments HEMOGLOBIN A1c (test code = 00809) 6.9 % LIPID [id number] 00:00:00 Test Item Value Reference Range Interpretation Comments CHOLESTEROL (test code = 2210) 309 MG/DL TRIGLYCERIDES (test code = 2232) 587 MG/DL HDL CHOLESTEROL (test code = 48 MG/DL 2220) CALC LDL CHOL (test code = 2237) (NOTE) MG/DL RISK RATIO LDL/HDL (test code = (NOTE) RATIO 2238) LIPID [id number] 00:00:00 Test Item Value Reference Range Interpretation [...] Range Interpretation Comments T-UPTAKE (test code = 281) 18.4 % THYROX. BIND. CAPAC. (test 1.5 code = 75122) T4 (THYROXINE) (test code = <1.2 UG/DL 2819) CORRECTED T4 (FTI) (test code (NOTE) UG/DL = 2820) TSH, THIRD GENERATION (test >100.000 UIU/ML code = 2821) THYROID II PROFILE (TU,T4,FTI,TSH) [ADDED]2019-10-26 00:00:00 Test Item Value Reference Range Interpretation Comments T-UPTAKE (test code = 2817) 18.4 % THYROX. BIND. CAPAC. (test 1.5 code = 42650) T4 (THYROXINE) (test code = <1.2 UG/DL 2819) CORRECTED T4 (FTI) (test code (NOTE) UG/DL = 2820) TSH, THIRD GENERATION (test >100.000 UIU/ML code = 2821) HEMOGLOBIN [id number] 00:00:00 Test Item Value Reference Range Interpretation Comments HEMOGLOBIN A1c (test code = 60211) 6.9 % HEMOGLOBIN [id number] 00:00:00 Test Item Value Reference Range Interpretation Comments HEMOGLOBIN A1c (test code = 66589) 6.9 % HEMOGLOBIN [id number] 00:00:00 Test Item Value Reference Range Interpretation Comments HEMOGLOBIN A1c (test code = 65483) 6.9 % LIPID [id number] 00:00:00 Test Item Value Reference Range Interpretation Comments CHOLESTEROL (test code = 2210) 309 MG/DL TRIGLYCERIDES (test code = 2232) 587 MG/DL HDL CHOLESTEROL (test code = 48 MG/DL 2220) CALC LDL CHOL (test code = 2237) (NOTE) MG/DL RISK RATIO LDL/HDL (test code = (NOTE) RATIO 2238) LIPID [id number] 00:00:00 Test Item Value Reference Range Interpretation [...] THYROX. BIND. CAPAC. (test 1.5 code = 87204) T4 (THYROXINE) (test code = <1.2 UG/DL 2819) CORRECTED T4 (FTI) (test code (NOTE) UG/DL = 2820) TSH, THIRD GENERATION (test >100.000 UIU/ML code = 2821) THYROID II PROFILE (TU,T4,FTI,TSH) [ADDED]2019-10-26 00:00:00 Test Item Value Reference Range Interpretation Comments T-UPTAKE (test code = 2817) 18.4 % THYROX. BIND. CAPAC. (test 1.5 code = 28299) T4 (THYROXINE) (test code = <1.2 UG/DL 2819) CORRECTED T4 (FTI) (test code (NOTE) UG/DL = 2820) TSH, THIRD GENERATION (test >100.000 UIU/ML code = 2821) HEMOGLOBIN [id number] 00:00:00 Test Item Value Reference Range Interpretation Comments HEMOGLOBIN A1c (test code = 06430) 6.9 % HEMOGLOBIN [id number] 00:00:00 Test Item Value Reference Range Interpretation Comments HEMOGLOBIN A1c (test code = 46331) 6.9 % HEMOGLOBIN [id number] 00:00:00 Test Item Value Reference Range Interpretation Comments HEMOGLOBIN A1c (test code = 80503) 6.9 % LIPID [id number] 00:00:00 Test Item Value Reference Range Interpretation Comments CHOLESTEROL (test code = 2210) 309 MG/DL TRIGLYCERIDES (test code = 2232) 587 MG/DL HDL CHOLESTEROL (test code = 48 MG/DL 2220) CALC LDL CHOL (test code = 2237) (NOTE) MG/DL RISK RATIO LDL/HDL (test code = (NOTE) RATIO 2238) LIPID [id number] 00:00:00 Test Item Value Reference Range Interpretation [...] THYROX. BIND. CAPAC. (test 1.5 code = 34258) T4 (THYROXINE) (test code = <1.2 UG/DL 2819) CORRECTED T4 (FTI) (test code (NOTE) UG/DL = 2820) TSH, THIRD GENERATION (test >100.000 UIU/ML code = 2821) THYROID II PROFILE (TU,T4,FTI,TSH) [ADDED]2019-10-26 00:00:00 Test Item Value Reference Range Interpretation Comments T-UPTAKE (test code = 2817) 18.4 % THYROX. BIND. CAPAC. (test 1.5 code = 93136) T4 (THYROXINE) (test code = <1.2 UG/DL 2819) CORRECTED T4 (FTI) (test code (NOTE) UG/DL = 2820) TSH, THIRD GENERATION (test >100.000 UIU/ML code = 2821) HEMOGLOBIN [id number] 00:00:00 Test Item Value Reference Range Interpretation Comments HEMOGLOBIN A1c (test code = 71434) 6.9 % HEMOGLOBIN [id number] 00:00:00 Test Item Value Reference Range Interpretation Comments HEMOGLOBIN A1c (test code = 90256) 6.9 % HEMOGLOBIN [id number] 00:00:00 Test Item Value Reference Range Interpretation Comments HEMOGLOBIN A1c (test code = 19729) 6.9 % LIPID [id number] 00:00:00 Test Item Value Reference Range Interpretation Comments CHOLESTEROL (test code = 2210) 309 MG/DL TRIGLYCERIDES (test code = 2232) 587 MG/DL HDL CHOLESTEROL (test code = 48 MG/DL 2220) CALC LDL CHOL (test code = 2237) (NOTE) MG/DL RISK RATIO LDL/HDL (test code = (NOTE) RATIO 2238) LIPID [id number] 00:00:00 Test Item Value Reference Range Interpretation [...] THYROX. BIND. CAPAC. (test 1.5 code = 07432) T4 (THYROXINE) (test code = <1.2 UG/DL 2819) CORRECTED T4 (FTI) (test code (NOTE) UG/DL = 2820) TSH, THIRD GENERATION (test >100.000 UIU/ML code = 2821) THYROID II PROFILE (TU,T4,FTI,TSH) [ADDED]2019-10-26 00:00:00 Test Item Value Reference Range Interpretation Comments T-UPTAKE (test code = 2817) 18.4 % THYROX. BIND. CAPAC. (test 1.5 code = 04636) T4 (THYROXINE) (test code = <1.2 UG/DL 2819) CORRECTED T4 (FTI) (test code (NOTE) UG/DL = 2820) TSH, THIRD GENERATION (test >100.000 UIU/ML code = 2821) HEMOGLOBIN [id number] 09:52:00 Test Item Value Reference Range Interpretation Comments HEMOGLOBIN A1C (BEAKER) (test code = 6.6 % 4.3-6.1 H 368) Quality Control Analyst ID - [id number] 09:08:00 Test Item Value Reference Range Interpretation Comments PROSTATE SPECIFIC ANTIGEN (BEAKER) 0.5 ng/mL 0.0-4.0 (test code = 844) Quality Control Analyst ID - [place] FLIPID [id number] 08:00:00 Test Item Value Reference Range Interpretation [...] Borderline 130-159 High 160-189 Very High >=190 Quality Control Analyst ID - SIMONE CTHYROID II PROFILE (T3U, T4, T7, TSH)2019-07-05 00:00:00 Test Item Value Reference Range Interpretation Comments T-UPTAKE (test code = 2817) 24.3 % THYROX. BIND. CAPAC. (test 1.3 code = 90382) T4 (THYROXINE) (test code = 3.6 UG/DL 2819) CORRECTED T4 (FTI) (test code 2.8 UG/DL = 2820) TSH, THIRD GENERATION (test >100.000 UIU/ML code = 2821) THYROID II PROFILE (T3U, T4, T7, TSH)2019-07-05 00:00:00 Test Item Value Reference Range Interpretation Comments T-UPTAKE (test code = 2817) 24.3 % THYROX. BIND. CAPAC. (test 1.3 code = 78603) T4 (THYROXINE) (test code = 3.6 UG/DL 2819) CORRECTED T4 (FTI) (test code 2.8 UG/DL = 2820) TSH, THIRD GENERATION (test >100.000 UIU/ML code = 2821) THYROID II PROFILE (T3U, T4, T7, TSH)2019-07-05 00:00:00 Test Item Value Reference Range Interpretation Comments T-UPTAKE (test code = 281) 24.3 % THYROX. BIND. CAPAC. (test 1.3 code = 72688) T4 (THYROXINE) (test code = 3.6 UG/DL 2819) CORRECTED T4 (FTI) (test code 2.8 UG/DL = 2820) TSH, THIRD GENERATION (test >100.000 UIU/ML code = 2821) THYROID II PROFILE (T3U, T4, T7, TSH)2019-07-05 00:00:00 Test Item Value Reference Range Interpretation Comments T-UPTAKE (test code = 281) 24.3 % THYROX. BIND. CAPAC. (test 1.3 code = 91599) T4 (THYROXINE) (test code = 3.6 UG/DL 2819) CORRECTED T4 (FTI) (test code 2.8 UG/DL = 2820) TSH, THIRD GENERATION (test >100.000 UIU/ML code = 2821) THYROID II PROFILE (T3U, T4, T7, TSH)2019-07-05 00:00:00 Test Item Value Reference Range Interpretation Comments T-UPTAKE (test code = 2817) 24.3 % THYROX. BIND. CAPAC. (test 1.3 code = 57269) T4 (THYROXINE) (test code = 3.6 UG/DL 2819) CORRECTED T4 (FTI) (test code 2.8 UG/DL = 2820) TSH, THIRD GENERATION (test >100.000 UIU/ML code = 2821) THYROID II PROFILE (T3U, T4, T7, TSH)2019-07-05 00:00:00 Test Item Value Reference Range Interpretation Comments T-UPTAKE (test code = 2817) 24.3 % THYROX. BIND. CAPAC. (test 1.3 code = 47048) T4 (THYROXINE) (test code = 3.6 UG/DL 2819) CORRECTED T4 (FTI) (test code 2.8 UG/DL = 2820) TSH, THIRD GENERATION (test >100.000 UIU/ML code = 2821) THYROID II PROFILE (T3U, T4, T7, TSH)2019-07-05 00:00:00 Test Item Value Reference Range Interpretation Comments T-UPTAKE (test code = 2817) 24.3 % THYROX. BIND. CAPAC. (test 1.3 code = 56285) T4 (THYROXINE) (test code = 3.6 UG/DL 2819) CORRECTED T4 (FTI) (test code 2.8 UG/DL = 2820) TSH, THIRD GENERATION (test >100.000 UIU/ML code = 2821) THYROID II PROFILE (T3U, T4, T7, TSH)2019-07-05 00:00:00 Test Item Value Reference Range Interpretation Comments T-UPTAKE (test code = 2817) 24.3 % THYROX. BIND. CAPAC. (test 1.3 code = 65589) T4 (THYROXINE) (test code = 3.6 UG/DL 2819) CORRECTED T4 (FTI) (test code 2.8 UG/DL = 2820) TSH, THIRD GENERATION (test >100.000 UIU/ML code = 2821) THYROID II PROFILE (T3U, T4, T7, TSH)2019-07-05 00:00:00 Test Item Value Reference Range Interpretation Comments T-UPTAKE (test code = 2817) 24.3 % THYROX. BIND. CAPAC. (test 1.3 code = 55946) T4 (THYROXINE) (test code = 3.6 UG/DL 2819) CORRECTED T4 (FTI) (test code 2.8 UG/DL = 2820) TSH, THIRD GENERATION (test >100.000 UIU/ML code = 2821) THYROID II PROFILE (T3U, T4, T7, TSH)2019-07-05 00:00:00 Test Item Value Reference Range Interpretation Comments T-UPTAKE (test code = 2817) 24.3 % THYROX. BIND. CAPAC. (test 1.3 code = 04164) T4 (THYROXINE) (test code = 3.6 UG/DL 2819) CORRECTED T4 (FTI) (test code 2.8 UG/DL = 2820) TSH, THIRD GENERATION (test >100.000 UIU/ML code = 2821) THYROID II PROFILE (T3U, T4, T7, TSH)2019-07-05 00:00:00 Test Item Value Reference Range Interpretation Comments T-UPTAKE (test code = 2817) 24.3 % THYROX. BIND. CAPAC. (test 1.3 code = 83276) T4 (THYROXINE) (test code = 3.6 UG/DL 2819) CORRECTED T4 (FTI) (test code 2.8 UG/DL = 2820) TSH, THIRD GENERATION (test >100.000 UIU/ML code = 2821) THYROID II PROFILE (T3U, T4, T7, TSH)2019-07-05 00:00:00 Test Item Value Reference Range Interpretation Comments T-UPTAKE (test code = 2817) 24.3 % THYROX. BIND. CAPAC. (test 1.3 code = 21238) T4 (THYROXINE) (test code = 3.6 UG/DL 2819) CORRECTED T4 (FTI) (test code 2.8 UG/DL = 2820) TSH, THIRD GENERATION (test >100.000 UIU/ML code = 2821) THYROID II PROFILE (T3U, T4, T7, TSH)2019-07-05 00:00:00 Test Item Value Reference Range Interpretation Comments T-UPTAKE (test code = 2817) 24.3 % THYROX. BIND. CAPAC. (test 1.3 code = 22123) T4 (THYROXINE) (test code = 3.6 UG/DL 2819) CORRECTED T4 (FTI) (test code 2.8 UG/DL = 2820) TSH, THIRD GENERATION (test >100.000 UIU/ML code = 2821) THYROID II PROFILE (T3U, T4, T7, TSH)2019-07-05 00:00:00 Test Item Value Reference Range Interpretation Comments T-UPTAKE (test code = 2817) 24.3 % THYROX. BIND. CAPAC. (test 1.3 code = 06430) T4 (THYROXINE) (test code = 3.6 UG/DL 2819) CORRECTED T4 (FTI) (test code 2.8 UG/DL = 2820) TSH, THIRD GENERATION (test >100.000 UIU/ML code = 2821) THYROID II PROFILE (T3U, T4, T7, TSH)2019-07-05 00:00:00 Test Item Value Reference Range Interpretation Comments T-UPTAKE (test code = 2817) 24.3 % THYROX. BIND. CAPAC. (test 1.3 code = 87613) T4 (THYROXINE) (test code = 3.6 UG/DL 2819) CORRECTED T4 (FTI) (test code 2.8 UG/DL = 2820) TSH, THIRD GENERATION (test >100.000 UIU/ML code = 2821) URINE [id number] 14:35:00 Test Item Value Reference Range Interpretation Comments CULTURE (Radiant ZemaxAKER) ENTEROCOCCUS A 10-19,000 c ol/mL (test code = 1095) FAECALIS Enterococ cus faecalis Ampicillin (test S code = 26) Levofloxacin (test S code = 22) Linezolid (test code S = 40) Nitrofurantoin (test S code = 23) Tetracycline (test R code = 2) Vancomycin (test S code = 13) 10-19,000 col/mL skin [id number] 10:31:00 Test Item Value Reference Range Interpretation Comments RPR SCREEN (Preedo) (test code = Nonreactive Nonreactive 420) U/S, ABDOMINAL, [id number] 16:14:00Reason for Exam:->Kidney transplant evaluation; comment on [...] Two simple right renal cysts. Signed: Tamika Phippseport Verified Date/Time: 05/23/2019 16:14:42 Reading Location: [address] Radiology Reading Room RAD, CHEST, 2 [id number] 16:02:00 Reason for Exam:->Pre kidney transplant evaluation.FINAL [...] MDReport Verified Date/Time: 05/23/2019 16:02:27 Reading Location: [address] Radiology Reading Room CYTOMEGALOVIRUS ANTIBODY, [id number] 15:17:00 Test Item Value Reference Range Interpretation Comments CYTOMEGALOVIRUS, IGG (BEAKER) Positive Negative, Equivocal A (test code = 3429) CMV IgG Result Interpretation: </= 0.8 Al Negative 0.9-1.0 Al Equivocal >/=1.1 Al PositiveCYTOMEGALOVIRUS ANTIBODY, [id number] 15:17:00 Test Item Value Reference Range Interpretation Comments CYTOMEGALOVIRUS IGM ANTIBODY Negative Negative, Equivocal (BEAKER) (test code = 3437) CMV IgM Result Interpretation: </= 0.8 Al Negative 0.9-1.0 Al Equivocal >/= 1.1 Al PositiveEBV ANTIBODY, [id number] 15:17:00 Test Item Value Reference Range Interpretation Comments NIHARIKA HOOPER VIRAL CAPSID Positive Negative, Equivocal A ANTIGEN IGG (Radiant ZemaxAKER) (test code = 3415) Niharika Hooper Viral Capsid Antigen IgG Result Interpretation: </= 0.8 Al Negative 0.9-1.0 Al Equivocal >/= 1.1 Al PositiveEBV ANTIBODY, [id number] 15:17:00 Test Item Value Reference Range Interpretation Comments NIHARIKA HOOPER VIRAL CAPSID Negative Negative, Equivocal ANTIGEN IGM (Radiant ZemaxAKER) (test code = 3418) Niharika Hooper Viral Capsid Antigen IgM Result Interpretation: </= 0.8 Al Negative 0.9-1.0 Al Equivocal >/= 1.1 Al PositiveVARICELLA ZOSTER ANTIBODY, [id number] 15:17:00 Test Item Value Reference Range Interpretation Comments VARICELLA ZOSTER IGG (AL) (BEAKER) 3.4 (test code = 3197) VARICELLA ZOSTER RESULT INTERPRETATIONS: <=0.8 Al Nonreactive: Presumed non- immune to VZV 0.9-1.0 Al Equivocal >=1.1 Al Reactive: Presumed immune to VZV HEPATITIS B SURFACE [id number] 12:59:00 Test Item Value Reference Range Interpretation Comments HEPATITIS B SURFACE ANTIBODY 11621.3 mIU/mL <8.0 H (Radiant ZemaxAKER) (test code = 647) Quality Control Analyst ID - ROSIANGHEPATITIS B SURFACE [id number] 12:47:00 Test Item Value Reference Range Interpretation Comments HEPATITIS B SURFACE ANTIGEN (2) Nonreactive Nonreactive (BEAKER) (test code = 2585) Quality Control Analyst ID - ROSIANGHEPATITIS B CORE ANTIBODY, [id number] 12:47:00 Test Item Value Reference Range Interpretation Comments HEPATITIS B CORE IGM ANTIBODY Nonreactive Nonreactive (BEAKER) (test code = 645) Quality Control Analyst ID - ROSIANGHEPATITIS C [id number] 12:47:00 Test Item Value Reference Range Interpretation Comments HEPATITIS C ANTIBODY (BEAKER) Nonreactive Nonreactive (test code = 367) Quality Control Analyst ID - NANCYGHIV-1 ANTIGEN WITH HIV-1/2 [id number] 12:47:00 Test Item Value Reference Range Interpretation Comments HIV-1 ANTIGEN WITH HIV 1\T\2 Nonreactive Nonreactive ANTIBODY (2) (BEAKER) (test code = 2586) Quality Control Analyst ID - ROSIANGPTH, [id number] 12:03:00 Test Item Value Reference Range Interpretation Comments PARATHYROID HORMONE INTACT 430.9 pg/mL 8.5-72.5 H (BEAKER) (test code = 577) Quality Control Analyst ID - LACOMPREHENSIVE METABOLIC [id number] 11:56:00 Test Item Value Reference Range Interpretation [...] S NOT APPLICABLE FOR DIALYSIS PATIEN TS. Quality Control Analyst ID - LAURIC [id number] 11:55:00 Test Item Value Reference Range Interpretation Comments URIC ACID (BEAKER) (test code = 5.5 mg/dL 2.6-7.2 773) Quality Control Analyst ID - [id number] 11:55:00 Test Item Value Reference Range Interpretation Comments PHOSPHORUS (BEAKER) (test code = 5.5 mg/dL 2.3-4.7 H 604) Quality Control Analyst ID - LAGAMMA GLUTAMYL TRANSFERASE (GGT)2019-05-23 11:55:00 Test Item Value Reference Range Interpretation Comments GAMMA GLUTAMYL TRANSFERASE (BEAKER) 20 U/L 9-64 (test code = 364) Quality Control Analyst ID - LALACTATE DEHYDROGENASE (LDH)2019-05-23 11:55:00 Test Item Value Reference Range Interpretation Comments LACTATE DEHYDROGENASE (BEAKER) (test 249 U/L 125-220 H code = 635) Quality Control Analyst ID - LAURINALYSIS W/ [id number] 11:43:00 Test Item Value Reference Range Interpretation [...] < /HPF SOURCE(BEAKER) (test code = 2795) Quality Control Analyst ID - [auto]Quality Control Analyst ID - [id number] 11:32:00 Test Item Value Reference Range Interpretation [...] 2.5-3.5 for patients wiht mechanical heart valves.PROTHROMBIN TIME/[id number] 11:31:00 Test Item Value Reference Range Interpretation [...] mechanical heart valves.CBC W/PLT COUNT & AUTO [id number] 11:27:00 Test Item Value Reference Range Interpretation [...] 0-1 PERCENT (BEAKER) (test code = 2801) [id number] 00:00:00 Test Item Value Reference Range Interpretation Comments TSH, THIRD GENERATION (test >100.000 UIU/ML code = 2391) [id number] 00:00:00 Test Item Value Reference Range Interpretation Comments TSH, THIRD GENERATION (test >100.000 UIU/ML code = 2821) [id number] 00:00:00 Test Item Value Reference Range Interpretation Comments TSH, THIRD GENERATION (test >100.000 UIU/ML code = 2821) [id number] 00:00:00 Test Item Value Reference Range Interpretation Comments TSH, THIRD GENERATION (test >100.000 UIU/ML code = 2821) [id number] 00:00:00 Test Item Value Reference Range Interpretation Comments TSH, THIRD GENERATION (test >100.000 UIU/ML code = 2821) [id number] 00:00:00 Test Item Value Reference Range Interpretation Comments TSH, THIRD GENERATION (test >100.000 UIU/ML code = 2821) [id number] 00:00:00 Test Item Value Reference Range Interpretation Comments TSH, THIRD GENERATION (test >100.000 UIU/ML code = 2821) [id number] 00:00:00 Test Item Value Reference Range Interpretation Comments TSH, THIRD GENERATION (test >100.000 UIU/ML code = 2821) [id number] 00:00:00 Test Item Value Reference Range Interpretation Comments TSH, THIRD GENERATION (test >100.000 UIU/ML code = 2821) [id number] 00:00:00 Test Item Value Reference Range Interpretation Comments TSH, THIRD GENERATION (test >100.000 UIU/ML code = 2821) [id number] 00:00:00 Test Item Value Reference Range Interpretation Comments TSH, THIRD GENERATION (test >100.000 UIU/ML code = 2821) [id number] 00:00:00 Test Item Value Reference Range Interpretation Comments TSH, THIRD GENERATION (test >100.000 UIU/ML code = 2821) [id number] 00:00:00 Test Item Value Reference Range Interpretation Comments TSH, THIRD GENERATION (test >100.000 UIU/ML code = 2821) [id number] 00:00:00 Test Item Value Reference Range Interpretation Comments TSH, THIRD GENERATION (test >100.000 UIU/ML code = 2821) [id number] 00:00:00 Test Item Value Reference Range Interpretation Comments TSH, THIRD GENERATION (test >100.000 UIU/ML code = 2821) [id number] 00:00:00 Test Item Value Reference Range Interpretation Comments TSH, THIRD GENERATION (test >100.000 UIU/ML code = 2821) [id number] 00:00:00 Test Item Value Reference Range Interpretation Comments TSH, THIRD GENERATION (test >100.000 UIU/ML code = 2821) [id number] 00:00:00 Test Item Value Reference Range Interpretation Comments TSH, THIRD GENERATION (test >100.000 UIU/ML code = 2821) [id number] 00:00:00 Test Item Value Reference Range Interpretation Comments TSH, THIRD GENERATION (test >100.000 UIU/ML code = 2821) [id number] 00:00:00 Test Item Value Reference Range Interpretation Comments TSH, THIRD GENERATION (test >100.000 UIU/ML code = 2821) [id number] 00:00:00 Test Item Value Reference Range Interpretation Comments TSH, THIRD GENERATION (test >100.000 UIU/ML code = 2821) [id number] 00:00:00 Test Item Value Reference Range Interpretation Comments TSH, THIRD GENERATION (test >100.000 UIU/ML code = 2821) [id number] 00:00:00 Test Item Value Reference Range Interpretation Comments TSH, THIRD GENERATION (test >100.000 UIU/ML code = 2821) LIPID [id number] 00:00:00 Test Item Value Reference Range Interpretation Comments CHOLESTEROL (test code = 2210) 201 MG/DL TRIGLYCERIDES (test code = 2232) 227 MG/DL HDL CHOLESTEROL (test code = 2220) 52 MG/DL CALC LDL CHOL (test code = 2237) 104 MG/DL RISK RATIO LDL/HDL (test code = 1.99 RATIO 2238) LIPID [id number] 00:00:00 Test Item Value Reference Range Interpretation Comments CHOLESTEROL (test code = 2210) 201 MG/DL TRIGLYCERIDES (test code = 2232) 227 MG/DL HDL CHOLESTEROL (test code = 2220) 52 MG/DL CALC LDL CHOL (test code = 2237) 104 MG/DL RISK RATIO LDL/HDL (test code = 1.99 RATIO 2238) [id number] 00:00:00 Test Item Value Reference Range Interpretation Comments TSH, THIRD GENERATION (test >100.000 UIU/ML code = 2821) [id number] 00:00:00 Test Item Value Reference Range Interpretation Comments TSH, THIRD GENERATION (test >100.000 UIU/ML code = 2821) [id number] 00:00:00 Test Item Value Reference Range Interpretation Comments TSH, THIRD GENERATION (test >100.000 UIU/ML code = 2821) LIPID [id number] 00:00:00 Test Item Value Reference Range Interpretation Comments CHOLESTEROL (test code = 2210) 201 MG/DL TRIGLYCERIDES (test code = 2232) 227 MG/DL HDL CHOLESTEROL (test code = 2220) 52 MG/DL CALC LDL CHOL (test code = 2237) 104 MG/DL RISK RATIO LDL/HDL (test code = 1.99 RATIO 2238) LIPID [id number] 00:00:00 Test Item Value Reference Range Interpretation Comments CHOLESTEROL (test code = 2210) 201 MG/DL TRIGLYCERIDES (test code = 2232) 227 MG/DL HDL CHOLESTEROL (test code = 2220) 52 MG/DL CALC LDL CHOL (test code = 2237) 104 MG/DL RISK RATIO LDL/HDL (test code = 1.99 RATIO 2238) [id number] 00:00:00 Test Item Value Reference Range Interpretation Comments TSH, THIRD GENERATION (test >100.000 UIU/ML code = 2821) [id number] 00:00:00 Test Item Value Reference Range Interpretation Comments TSH, THIRD GENERATION (test >100.000 UIU/ML code = 2821) [id number] 00:00:00 Test Item Value Reference Range Interpretation Comments TSH, THIRD GENERATION (test >100.000 UIU/ML code = 2821) LIPID [id number] 00:00:00 Test Item Value Reference Range Interpretation Comments CHOLESTEROL (test code = 2210) 201 MG/DL TRIGLYCERIDES (test code = 2232) 227 MG/DL HDL CHOLESTEROL (test code = 2220) 52 MG/DL CALC LDL CHOL (test code = 2237) 104 MG/DL RISK RATIO LDL/HDL (test code = 1.99 RATIO 2238) LIPID [id number] 00:00:00 Test Item Value Reference Range Interpretation Comments CHOLESTEROL (test code = 2210) 201 MG/DL TRIGLYCERIDES (test code = 2232) 227 MG/DL HDL CHOLESTEROL (test code = 2220) 52 MG/DL CALC LDL CHOL (test code = 2237) 104 MG/DL RISK RATIO LDL/HDL (test code = 1.99 RATIO 2238) LIPID [id number] 00:00:00 Test Item Value Reference Range Interpretation Comments CHOLESTEROL (test code = 2210) 201 MG/DL TRIGLYCERIDES (test code = 2232) 227 MG/DL HDL CHOLESTEROL (test code = 2220) 52 MG/DL CALC LDL CHOL (test code = 2237) 104 MG/DL RISK RATIO LDL/HDL (test code = 1.99 RATIO 2238) [id number] 00:00:00 Test Item Value Reference Range Interpretation Comments TSH, THIRD GENERATION (test >100.000 UIU/ML code = 2821) [id number] 00:00:00 Test Item Value Reference Range Interpretation Comments TSH, THIRD GENERATION (test >100.000 UIU/ML code = 2821) [id number] 00:00:00 Test Item Value Reference Range Interpretation Comments TSH, THIRD GENERATION (test >100.000 UIU/ML code = 2821) [id number] 00:00:00 Test Item Value Reference Range Interpretation Comments TSH, THIRD GENERATION (test >100.000 UIU/ML code = 2821) [id number] 00:00:00 Test Item Value Reference Range Interpretation Comments TSH, THIRD GENERATION (test >100.000 UIU/ML code = 2821) LIPID [id number] 00:00:00 Test Item Value Reference Range Interpretation Comments CHOLESTEROL (test code = 2210) 201 MG/DL TRIGLYCERIDES (test code = 2232) 227 MG/DL HDL CHOLESTEROL (test code = 2220) 52 MG/DL CALC LDL CHOL (test code = 2237) 104 MG/DL RISK RATIO LDL/HDL (test code = 1.99 RATIO 2238) LIPID [id number] 00:00:00 Test Item Value Reference Range Interpretation Comments CHOLESTEROL (test code = 2210) 201 MG/DL TRIGLYCERIDES (test code = 2232) 227 MG/DL HDL CHOLESTEROL (test code = 2220) 52 MG/DL CALC LDL CHOL (test code = 2237) 104 MG/DL RISK RATIO LDL/HDL (test code = 1.99 RATIO 2238) [id number] 00:00:00 Test Item Value Reference Range Interpretation Comments TSH, THIRD GENERATION (test >100.000 UIU/ML code = 2821) [id number] 00:00:00 Test Item Value Reference Range Interpretation Comments TSH, THIRD GENERATION (test >100.000 UIU/ML code = 2821) [id number] 00:00:00 Test Item Value Reference Range Interpretation Comments TSH, THIRD GENERATION (test >100.000 UIU/ML code = 2821) LIPID [id number] 00:00:00 Test Item Value Reference Range Interpretation Comments CHOLESTEROL (test code = 2210) 201 MG/DL TRIGLYCERIDES (test code = 2232) 227 MG/DL HDL CHOLESTEROL (test code = 2220) 52 MG/DL CALC LDL CHOL (test code = 2237) 104 MG/DL RISK RATIO LDL/HDL (test code = 1.99 RATIO 2238) LIPID [id number] 00:00:00 Test Item Value Reference Range Interpretation Comments CHOLESTEROL (test code = 2210) 201 MG/DL TRIGLYCERIDES (test code = 2232) 227 MG/DL HDL CHOLESTEROL (test code = 2220) 52 MG/DL CALC LDL CHOL (test code = 2237) 104 MG/DL RISK RATIO LDL/HDL (test code = 1.99 RATIO 2238) [id number] 00:00:00 Test Item Value Reference Range Interpretation Comments TSH, THIRD GENERATION (test >100.000 UIU/ML code = 2821) [id number] 00:00:00 Test Item Value Reference Range Interpretation Comments TSH, THIRD GENERATION (test >100.000 UIU/ML code = 2821) [id number] 00:00:00 Test Item Value Reference Range Interpretation Comments TSH, THIRD GENERATION (test >100.000 UIU/ML code = 2821) LIPID [id number] 00:00:00 Test Item Value Reference Range Interpretation Comments CHOLESTEROL (test code = 2210) 201 MG/DL TRIGLYCERIDES (test code = 2232) 227 MG/DL HDL CHOLESTEROL (test code = 2220) 52 MG/DL CALC LDL CHOL (test code = 2237) 104 MG/DL RISK RATIO LDL/HDL (test code = 1.99 RATIO 2238) LIPID [id number] 00:00:00 Test Item Value Reference Range Interpretation Comments CHOLESTEROL (test code = 2210) 201 MG/DL TRIGLYCERIDES (test code = 2232) 227 MG/DL HDL CHOLESTEROL (test code = 2220) 52 MG/DL CALC LDL CHOL (test code = 2237) 104 MG/DL RISK RATIO LDL/HDL (test code = 1.99 RATIO 2238) [id number] 00:00:00 Test Item Value Reference Range Interpretation Comments TSH, THIRD GENERATION (test >100.000 UIU/ML code = 2821) [id number] 00:00:00 Test Item Value Reference Range Interpretation Comments TSH, THIRD GENERATION (test >100.000 UIU/ML code = 2821) [id number] 00:00:00 Test Item Value Reference Range Interpretation Comments TSH, THIRD GENERATION (test >100.000 UIU/ML code = 2821) LIPID [id number] 00:00:00 Test Item Value Reference Range Interpretation Comments CHOLESTEROL (test code = 2210) 201 MG/DL TRIGLYCERIDES (test code = 2232) 227 MG/DL HDL CHOLESTEROL (test code = 2220) 52 MG/DL CALC LDL CHOL (test code = 2237) 104 MG/DL RISK RATIO LDL/HDL (test code = 1.99 RATIO 2238) LIPID [id number] 00:00:00 Test Item Value Reference Range Interpretation Comments CHOLESTEROL (test code = 2210) 201 MG/DL TRIGLYCERIDES (test code = 2232) 227 MG/DL HDL CHOLESTEROL (test code = 2220) 52 MG/DL CALC LDL CHOL (test code = 2237) 104 MG/DL RISK RATIO LDL/HDL (test code = 1.99 RATIO 2238) [id number] 00:00:00 Test Item Value Reference Range Interpretation Comments TSH, THIRD GENERATION (test >100.000 UIU/ML code = 2821) [id number] 00:00:00 Test Item Value Reference Range Interpretation Comments TSH, THIRD GENERATION (test >100.000 UIU/ML code = 2821) [id number] 00:00:00 Test Item Value Reference Range Interpretation Comments TSH, THIRD GENERATION (test >100.000 UIU/ML code = 2821) COMPREHENSIVE METABOLIC [id number] 00:00:00 Test Item Value Reference Range Interpretation Comments GLUCOSE (test code = 2217) 103 MG/DL BUN (test code = 2208) 35 MG/DL CREATININE (test code = 2214) 6.37 MG/DL eGFR AMER. (test code 11 ML/MIN/1.73 = 70202) eGFR NON- AMER. (test 9 ML/MIN/1.73 code = 02427) CALC BUN/CREAT (test code = 5 RATIO [...] code = 2219) 10 U/L COMPREHENSIVE METABOLIC [id number] 00:00:00 Test Item Value Reference Range Interpretation Comments GLUCOSE (test code = 2217) 103 MG/DL BUN (test code = 2208) 35 MG/DL CREATININE (test code = 2214) 6.37 MG/DL eGFR AMER. (test code 11 ML/MIN/1.73 = 81886) eGFR NON- AMER. (test 9 ML/MIN/1.73 code = 69673) CALC BUN/CREAT (test code = 5 RATIO 2235) SODIUM (test code = 2231) 141 MEQ/L POTASSIUM (test code = 2228) 3.8 MEQ/L CHLORIDE (test code = 2215) 96 MEQ/L CARBON DIOXIDE (test code = 27 MEQ/L 2206) CALCIUM (test code = 2209) 11.0 MG/DL PROTEIN, TOTAL (test code = 8.8 G/DL 2229) ALBUMIN (test code = 2201) 5.6 G/DL CALC GLOBULIN (test code = 3.2 G/DL 2240) CALC A/G RATIO (test code = 1.8 RATIO 2234) BILIRUBIN, TOTAL (test code = 0.2 MG/DL 2206) ALKALINE PHOSPHATASE (test 58 U/L code = 2204) AST (test code = 2218) 10 U/L ALT (test code = 2219) 10 U/L LIPID [id number] 00:00:00 Test Item Value Reference Range Interpretation Comments CHOLESTEROL (test code = 2210) 240 MG/DL TRIGLYCERIDES (test code = 2232) 395 MG/DL HDL CHOLESTEROL (test code = 2220) 55 MG/DL CALC LDL CHOL (test code = 2237) 106 MG/DL RISK RATIO LDL/HDL (test code = 1.93 RATIO 2238) LIPID [id number] 00:00:00 Test Item Value Reference Range Interpretation Comments CHOLESTEROL (test code = 2210) 240 MG/DL TRIGLYCERIDES (test code = 2232) 395 MG/DL HDL CHOLESTEROL (test code = 2220) 55 MG/DL CALC LDL CHOL (test code = 2237) 106 MG/DL RISK RATIO LDL/HDL (test code = 1.93 RATIO 2238) CBC W/AUTO [id number] 00:00:00 Test Item Value Reference Range Interpretation [...] code = 1015) 327 K/UL CBC W/AUTO [id number] 00:00:00 Test Item Value Reference Range Interpretation [...] code = 1015) 327 K/UL CBC W/AUTO [id number] 00:00:00 Test Item Value Reference Range Interpretation [...] (test code = 1015) 327 K/UL HEMOGLOBIN [id number] 00:00:00 Test Item Value Reference Range Interpretation Comments HEMOGLOBIN A1c (test code = 98391) 6.2 % HEMOGLOBIN [id number] 00:00:00 Test Item Value Reference Range Interpretation Comments HEMOGLOBIN A1c (test code = 18506) 6.2 % HEMOGLOBIN [id number] 00:00:00 Test Item Value Reference Range Interpretation Comments HEMOGLOBIN A1c (test code = 78421) 6.2 % [id number] 00:00:00 Test Item Value Reference Range Interpretation Comments TSH, THIRD GENERATION (test >100.000 UIU/ML code = 2821) [id number] 00:00:00 Test Item Value Reference Range Interpretation Comments TSH, THIRD GENERATION (test >100.000 UIU/ML code = 2821) [id number] 00:00:00 Test Item Value Reference Range Interpretation Comments TSH, THIRD GENERATION (test >100.000 UIU/ML code = 2821) COMPREHENSIVE METABOLIC [id number] 00:00:00 Test Item Value Reference Range Interpretation Comments GLUCOSE (test code = 2217) 103 MG/DL BUN (test code = 2208) 35 MG/DL CREATININE (test code = 2214) 6.37 MG/DL eGFR AMER. (test code 11 ML/MIN/1.73 = 85690) eGFR NON- AMER. (test 9 ML/MIN/1.73 code = 25434) CALC BUN/CREAT (test code = 5 RATIO [...] code = 2219) 10 U/L COMPREHENSIVE METABOLIC [id number] 00:00:00 Test Item Value Reference Range Interpretation Comments GLUCOSE (test code = 2217) 103 MG/DL BUN (test code = 2208) 35 MG/DL CREATININE (test code = 2214) 6.37 MG/DL eGFR AMER. (test code 11 ML/MIN/1.73 = 75674) eGFR NON- AMER. (test 9 ML/MIN/1.73 code = 71087) CALC BUN/CREAT (test code = 5 RATIO [...] (test code = 2219) 10 U/L LIPID [id number] 00:00:00 Test Item Value Reference Range Interpretation Comments CHOLESTEROL (test code = 2210) 240 MG/DL TRIGLYCERIDES (test code = 2232) 395 MG/DL HDL CHOLESTEROL (test code = 2220) 55 MG/DL CALC LDL CHOL (test code = 2237) 106 MG/DL RISK RATIO LDL/HDL (test code = 1.93 RATIO 2238) LIPID [id number] 00:00:00 Test Item Value Reference Range Interpretation Comments CHOLESTEROL (test code = 2210) 240 MG/DL TRIGLYCERIDES (test code = 2232) 395 MG/DL HDL CHOLESTEROL (test code = 2220) 55 MG/DL CALC LDL CHOL (test code = 2237) 106 MG/DL RISK RATIO LDL/HDL (test code = 1.93 RATIO 2238) CBC W/AUTO [id number] 00:00:00 Test Item Value Reference Range Interpretation [...] code = 1015) 327 K/UL CBC W/AUTO [id number] 00:00:00 Test Item Value Reference Range Interpretation [...] code = 1015) 327 K/UL CBC W/AUTO [id number] 00:00:00 Test Item Value Reference Range Interpretation [...] (test code = 1015) 327 K/UL HEMOGLOBIN [id number] 00:00:00 Test Item Value Reference Range Interpretation Comments HEMOGLOBIN A1c (test code = 40471) 6.2 % HEMOGLOBIN [id number] 00:00:00 Test Item Value Reference Range Interpretation Comments HEMOGLOBIN A1c (test code = 18143) 6.2 % HEMOGLOBIN [id number] 00:00:00 Test Item Value Reference Range Interpretation Comments HEMOGLOBIN A1c (test code = 12788) 6.2 % [id number] 00:00:00 Test Item Value Reference Range Interpretation Comments TSH, THIRD GENERATION (test >100.000 UIU/ML code = 2821) [id number] 00:00:00 Test Item Value Reference Range Interpretation Comments TSH, THIRD GENERATION (test >100.000 UIU/ML code = 2821) [id number] 00:00:00 Test Item Value Reference Range Interpretation Comments TSH, THIRD GENERATION (test >100.000 UIU/ML code = 2821) COMPREHENSIVE METABOLIC [id number] 00:00:00 Test Item Value Reference Range Interpretation Comments GLUCOSE (test code = 2217) 103 MG/DL BUN (test code = 2208) 35 MG/DL CREATININE (test code = 2214) 6.37 MG/DL eGFR AMER. (test code 11 ML/MIN/1.73 = 98828) eGFR NON- AMER. (test 9 ML/MIN/1.73 code = 40838) CALC BUN/CREAT (test code = 5 RATIO [...] code = 2219) 10 U/L COMPREHENSIVE METABOLIC [id number] 00:00:00 Test Item Value Reference Range Interpretation Comments GLUCOSE (test code = 2217) 103 MG/DL BUN (test code = 2208) 35 MG/DL CREATININE (test code = 2214) 6.37 MG/DL eGFR AMER. (test code 11 ML/MIN/1.73 = 45130) eGFR NON- AMER. (test 9 ML/MIN/1.73 code = 36268) CALC BUN/CREAT (test code = 5 RATIO [...] (test code = 2219) 10 U/L LIPID [id number] 00:00:00 Test Item Value Reference Range Interpretation Comments CHOLESTEROL (test code = 2210) 240 MG/DL TRIGLYCERIDES (test code = 2232) 395 MG/DL HDL CHOLESTEROL (test code = 2220) 55 MG/DL CALC LDL CHOL (test code = 2237) 106 MG/DL RISK RATIO LDL/HDL (test code = 1.93 RATIO 2238) LIPID [id number] 00:00:00 Test Item Value Reference Range Interpretation Comments CHOLESTEROL (test code = 2210) 240 MG/DL TRIGLYCERIDES (test code = 2232) 395 MG/DL HDL CHOLESTEROL (test code = 2220) 55 MG/DL CALC LDL CHOL (test code = 2237) 106 MG/DL RISK RATIO LDL/HDL (test code = 1.93 RATIO 2238) COMPREHENSIVE METABOLIC [id number] 00:00:00 Test Item Value Reference Range Interpretation Comments GLUCOSE (test code = 2217) 103 MG/DL BUN (test code = 2208) 35 MG/DL CREATININE (test code = 2214) 6.37 MG/DL eGFR AMER. (test code 11 ML/MIN/1.73 = 92633) eGFR NON- AMER. (test 9 ML/MIN/1.73 code = 39973) CALC BUN/CREAT (test code = 5 RATIO [...] A/G RATIO (test code = 1.8 RATIO 223) BILIRUBIN, TOTAL (test code = 0.2 MG/DL 2206) ALKALINE PHOSPHATASE (test 58 U/L code = 2204) AST (test code = 2218) 10 U/L ALT (test code = 2219) 10 U/L CBC W/AUTO [id number] 00:00:00 Test Item Value Reference Range Interpretation [...] (test code = 1015) 327 K/UL LIPID [id number] 00:00:00 Test Item Value Reference Range Interpretation Comments CHOLESTEROL (test code = 2210) 240 MG/DL TRIGLYCERIDES (test code = 2232) 395 MG/DL HDL CHOLESTEROL (test code = 2220) 55 MG/DL CALC LDL CHOL (test code = 2237) 106 MG/DL RISK RATIO LDL/HDL (test code = 1.93 RATIO 2238) CBC W/AUTO [id number] 00:00:00 Test Item Value Reference Range Interpretation [...] code = 1015) 327 K/UL CBC W/AUTO [id number] 00:00:00 Test Item Value Reference Range Interpretation [...] (test code = 1015) 327 K/UL HEMOGLOBIN [id number] 00:00:00 Test Item Value Reference Range Interpretation Comments HEMOGLOBIN A1c (test code = 76536) 6.2 % HEMOGLOBIN [id number] 00:00:00 Test Item Value Reference Range Interpretation Comments HEMOGLOBIN A1c (test code = 23737) 6.2 % HEMOGLOBIN [id number] 00:00:00 Test Item Value Reference Range Interpretation Comments HEMOGLOBIN A1c (test code = 55890) 6.2 % [id number] 00:00:00 Test Item Value Reference Range Interpretation Comments TSH, THIRD GENERATION (test >100.000 UIU/ML code = 2821) [id number] 00:00:00 Test Item Value Reference Range Interpretation Comments TSH, THIRD GENERATION (test >100.000 UIU/ML code = 2821) [id number] 00:00:00 Test Item Value Reference Range Interpretation Comments TSH, THIRD GENERATION (test >100.000 UIU/ML code = 2821) CBC W/AUTO [id number] 00:00:00 Test Item Value Reference Range Interpretation [...] code = 1015) 327 K/UL CBC W/AUTO [id number] 00:00:00 Test Item Value Reference Range Interpretation [...] (test code = 1015) 327 K/UL HEMOGLOBIN [id number] 00:00:00 Test Item Value Reference Range Interpretation Comments HEMOGLOBIN A1c (test code = 48342) 6.2 % HEMOGLOBIN [id number] 00:00:00 Test Item Value Reference Range Interpretation Comments HEMOGLOBIN A1c (test code = 85351) 6.2 % COMPREHENSIVE METABOLIC [id number] 00:00:00 Test Item Value Reference Range Interpretation Comments GLUCOSE (test code = 2217) 103 MG/DL BUN (test code = 2208) 35 MG/DL CREATININE (test code = 2214) 6.37 MG/DL eGFR AMER. (test code 11 ML/MIN/1.73 = 86061) eGFR NON- AMER. (test 9 ML/MIN/1.73 code = 85471) CALC BUN/CREAT (test code = 5 RATIO [...] code = 2219) 10 U/L COMPREHENSIVE METABOLIC [id number] 00:00:00 Test Item Value Reference Range Interpretation Comments GLUCOSE (test code = 2217) 103 MG/DL BUN (test code = 2208) 35 MG/DL CREATININE (test code = 2214) 6.37 MG/DL eGFR AMER. (test code 11 ML/MIN/1.73 = 26159) eGFR NON- AMER. (test 9 ML/MIN/1.73 code = 03536) CALC BUN/CREAT (test code = 5 RATIO [...] ALT (test code = 2219) 10 U/L [id number] 00:00:00 Test Item Value Reference Range Interpretation Comments TSH, THIRD GENERATION (test >100.000 UIU/ML code = 2821) [id number] 00:00:00 Test Item Value Reference Range Interpretation Comments TSH, THIRD GENERATION (test >100.000 UIU/ML code = 2821) LIPID [id number] 00:00:00 Test Item Value Reference Range Interpretation Comments CHOLESTEROL (test code = 2210) 240 MG/DL TRIGLYCERIDES (test code = 2232) 395 MG/DL HDL CHOLESTEROL (test code = 2220) 55 MG/DL CALC LDL CHOL (test code = 2237) 106 MG/DL RISK RATIO LDL/HDL (test code = 1.93 RATIO 2238) LIPID [id number] 00:00:00 Test Item Value Reference Range Interpretation Comments CHOLESTEROL (test code = 2210) 240 MG/DL TRIGLYCERIDES (test code = 2232) 395 MG/DL HDL CHOLESTEROL (test code = 2220) 55 MG/DL CALC LDL CHOL (test code = 2237) 106 MG/DL RISK RATIO LDL/HDL (test code = 1.93 RATIO 2238) CBC W/AUTO [id number] 00:00:00 Test Item Value Reference Range Interpretation [...] code = 1015) 327 K/UL CBC W/AUTO [id number] 00:00:00 Test Item Value Reference Range Interpretation [...] code = 1015) 327 K/UL CBC W/AUTO [id number] 00:00:00 Test Item Value Reference Range Interpretation [...] (test code = 1015) 327 K/UL HEMOGLOBIN [id number] 00:00:00 Test Item Value Reference Range Interpretation Comments HEMOGLOBIN A1c (test code = 18492) 6.2 % HEMOGLOBIN [id number] 00:00:00 Test Item Value Reference Range Interpretation Comments HEMOGLOBIN A1c (test code = 56334) 6.2 % HEMOGLOBIN [id number] 00:00:00 Test Item Value Reference Range Interpretation Comments HEMOGLOBIN A1c (test code = 27608) 6.2 % [id number] 00:00:00 Test Item Value Reference Range Interpretation Comments TSH, THIRD GENERATION (test >100.000 UIU/ML code = 2821) [id number] 00:00:00 Test Item Value Reference Range Interpretation Comments TSH, THIRD GENERATION (test >100.000 UIU/ML code = 2821) [id number] 00:00:00 Test Item Value Reference Range Interpretation Comments TSH, THIRD GENERATION (test >100.000 UIU/ML code = 2821) COMPREHENSIVE METABOLIC [id number] 00:00:00 Test Item Value Reference Range Interpretation Comments GLUCOSE (test code = 2217) 103 MG/DL BUN (test code = 2208) 35 MG/DL CREATININE (test code = 2214) 6.37 MG/DL eGFR AMER. (test code 11 ML/MIN/1.73 = 91259) eGFR NON- AMER. (test 9 ML/MIN/1.73 code = 43745) CALC BUN/CREAT (test code = 5 RATIO [...] code = 2219) 10 U/L COMPREHENSIVE METABOLIC [id number] 00:00:00 Test Item Value Reference Range Interpretation Comments GLUCOSE (test code = 2217) 103 MG/DL BUN (test code = 2208) 35 MG/DL CREATININE (test code = 2214) 6.37 MG/DL eGFR AMER. (test code 11 ML/MIN/1.73 = 49227) eGFR NON- AMER. (test 9 ML/MIN/1.73 code = 78641) CALC BUN/CREAT (test code = 5 RATIO [...] (test code = 2219) 10 U/L LIPID [id number] 00:00:00 Test Item Value Reference Range Interpretation Comments CHOLESTEROL (test code = 2210) 240 MG/DL TRIGLYCERIDES (test code = 2232) 395 MG/DL HDL CHOLESTEROL (test code = 2220) 55 MG/DL CALC LDL CHOL (test code = 2237) 106 MG/DL RISK RATIO LDL/HDL (test code = 1.93 RATIO 2238) LIPID [id number] 00:00:00 Test Item Value Reference Range Interpretation Comments CHOLESTEROL (test code = 2210) 240 MG/DL TRIGLYCERIDES (test code = 2232) 395 MG/DL HDL CHOLESTEROL (test code = 2220) 55 MG/DL CALC LDL CHOL (test code = 2237) 106 MG/DL RISK RATIO LDL/HDL (test code = 1.93 RATIO 2238) CBC W/AUTO [id number] 00:00:00 Test Item Value Reference Range Interpretation [...] code = 1015) 327 K/UL CBC W/AUTO [id number] 00:00:00 Test Item Value Reference Range Interpretation [...] code = 1015) 327 K/UL CBC W/AUTO [id number] 00:00:00 Test Item Value Reference Range Interpretation [...] (test code = 1015) 327 K/UL HEMOGLOBIN [id number] 00:00:00 Test Item Value Reference Range Interpretation Comments HEMOGLOBIN A1c (test code = 14700) 6.2 % HEMOGLOBIN [id number] 00:00:00 Test Item Value Reference Range Interpretation Comments HEMOGLOBIN A1c (test code = 98040) 6.2 % HEMOGLOBIN [id number] 00:00:00 Test Item Value Reference Range Interpretation Comments HEMOGLOBIN A1c (test code = 27165) 6.2 % [id number] 00:00:00 Test Item Value Reference Range Interpretation Comments TSH, THIRD GENERATION (test >100.000 UIU/ML code = 2821) [id number] 00:00:00 Test Item Value Reference Range Interpretation Comments TSH, THIRD GENERATION (test >100.000 UIU/ML code = 2821) [id number] 00:00:00 Test Item Value Reference Range Interpretation Comments TSH, THIRD GENERATION (test >100.000 UIU/ML code = 2821) COMPREHENSIVE METABOLIC [id number] 00:00:00 Test Item Value Reference Range Interpretation Comments GLUCOSE (test code = 2217) 103 MG/DL BUN (test code = 2208) 35 MG/DL CREATININE (test code = 2214) 6.37 MG/DL eGFR AMER. (test code 11 ML/MIN/1.73 = 02565) eGFR NON- AMER. (test 9 ML/MIN/1.73 code = 13114) CALC BUN/CREAT (test code = 5 RATIO [...] code = 2219) 10 U/L COMPREHENSIVE METABOLIC [id number] 00:00:00 Test Item Value Reference Range Interpretation Comments GLUCOSE (test code = 2217) 103 MG/DL BUN (test code = 2208) 35 MG/DL CREATININE (test code = 2214) 6.37 MG/DL eGFR AMER. (test code 11 ML/MIN/1.73 = 18308) eGFR NON- AMER. (test 9 ML/MIN/1.73 code = 70302) CALC BUN/CREAT (test code = 5 RATIO [...] (test code = 2219) 10 U/L LIPID [id number] 00:00:00 Test Item Value Reference Range Interpretation Comments CHOLESTEROL (test code = 2210) 240 MG/DL TRIGLYCERIDES (test code = 2232) 395 MG/DL HDL CHOLESTEROL (test code = 2220) 55 MG/DL CALC LDL CHOL (test code = 2237) 106 MG/DL RISK RATIO LDL/HDL (test code = 1.93 RATIO 2238) LIPID [id number] 00:00:00 Test Item Value Reference Range Interpretation Comments CHOLESTEROL (test code = 2210) 240 MG/DL TRIGLYCERIDES (test code = 2232) 395 MG/DL HDL CHOLESTEROL (test code = 2220) 55 MG/DL CALC LDL CHOL (test code = 2237) 106 MG/DL RISK RATIO LDL/HDL (test code = 1.93 RATIO 2238) CBC W/AUTO [id number] 00:00:00 Test Item Value Reference Range Interpretation [...] code = 1015) 327 K/UL CBC W/AUTO [id number] 00:00:00 Test Item Value Reference Range Interpretation [...] code = 1015) 327 K/UL CBC W/AUTO [id number] 00:00:00 Test Item Value Reference Range Interpretation [...] (test code = 1015) 327 K/UL HEMOGLOBIN [id number] 00:00:00 Test Item Value Reference Range Interpretation Comments HEMOGLOBIN A1c (test code = 51437) 6.2 % HEMOGLOBIN [id number] 00:00:00 Test Item Value Reference Range Interpretation Comments HEMOGLOBIN A1c (test code = 09993) 6.2 % HEMOGLOBIN [id number] 00:00:00 Test Item Value Reference Range Interpretation Comments HEMOGLOBIN A1c (test code = 48490) 6.2 % [id number] 00:00:00 Test Item Value Reference Range Interpretation Comments TSH, THIRD GENERATION (test >100.000 UIU/ML code = 2821) [id number] 00:00:00 Test Item Value Reference Range Interpretation Comments TSH, THIRD GENERATION (test >100.000 UIU/ML code = 2821) [id number] 00:00:00 Test Item Value Reference Range Interpretation Comments TSH, THIRD GENERATION (test >100.000 UIU/ML code = 2821) COMPREHENSIVE METABOLIC [id number] 00:00:00 Test Item Value Reference Range Interpretation Comments GLUCOSE (test code = 2217) 103 MG/DL BUN (test code = 2208) 35 MG/DL CREATININE (test code = 2214) 6.37 MG/DL eGFR AMER. (test code 11 ML/MIN/1.73 = 02204) eGFR NON- AMER. (test 9 ML/MIN/1.73 code = 09809) CALC BUN/CREAT (test code = 5 RATIO [...] code = 2219) 10 U/L COMPREHENSIVE METABOLIC [id number] 00:00:00 Test Item Value Reference Range Interpretation Comments GLUCOSE (test code = 2217) 103 MG/DL BUN (test code = 2208) 35 MG/DL CREATININE (test code = 2214) 6.37 MG/DL eGFR AMER. (test code 11 ML/MIN/1.73 = 21214) eGFR NON- AMER. (test 9 ML/MIN/1.73 code = 51177) CALC BUN/CREAT (test code = 5 RATIO [...] (test code = 2219) 10 U/L LIPID [id number] 00:00:00 Test Item Value Reference Range Interpretation Comments CHOLESTEROL (test code = 2210) 240 MG/DL TRIGLYCERIDES (test code = 2232) 395 MG/DL HDL CHOLESTEROL (test code = 2220) 55 MG/DL CALC LDL CHOL (test code = 2237) 106 MG/DL RISK RATIO LDL/HDL (test code = 1.93 RATIO 2238) LIPID [id number] 00:00:00 Test Item Value Reference Range Interpretation Comments CHOLESTEROL (test code = 2210) 240 MG/DL TRIGLYCERIDES (test code = 2232) 395 MG/DL HDL CHOLESTEROL (test code = 2220) 55 MG/DL CALC LDL CHOL (test code = 2237) 106 MG/DL RISK RATIO LDL/HDL (test code = 1.93 RATIO 2238) CBC W/AUTO [id number] 00:00:00 Test Item Value Reference Range Interpretation [...] code = 1015) 327 K/UL CBC W/AUTO [id number] 00:00:00 Test Item Value Reference Range Interpretation [...] code = 1015) 327 K/UL CBC W/AUTO [id number] 00:00:00 Test Item Value Reference Range Interpretation [...] (test code = 1015) 327 K/UL HEMOGLOBIN [id number] 00:00:00 Test Item Value Reference Range Interpretation Comments HEMOGLOBIN A1c (test code = 64183) 6.2 % HEMOGLOBIN [id number] 00:00:00 Test Item Value Reference Range Interpretation Comments HEMOGLOBIN A1c (test code = 37399) 6.2 % HEMOGLOBIN [id number] 00:00:00 Test Item Value Reference Range Interpretation Comments HEMOGLOBIN A1c (test code = 87209) 6.2 % [id number] 00:00:00 Test Item Value Reference Range Interpretation Comments TSH, THIRD GENERATION (test >100.000 UIU/ML code = 2821) [id number] 00:00:00 Test Item Value Reference Range Interpretation Comments TSH, THIRD GENERATION (test >100.000 UIU/ML code = 2821) [id number] 00:00:00 Test Item Value Reference Range Interpretation Comments TSH, THIRD GENERATION (test >100.000 UIU/ML code = 2821)
[2022-05-31 22:28] LABS: Absolute Lymphocytes (CBC) 0.7 K/uL (0.7-4.9); Hematocrit 31.9 % (39.6-49.0); MPV 7.3 fL (7.6-11.3); RBC Red Blood Cell Count 3.22 M/uL (4.33-5.43)
[2022-05-31 22:43] LABS: Magnesium 2.5 mg/dL (1.6-2.4)
[2022-05-31 22:47] LABS: Potassium 6.2 mmol/L (3.5-5.1)
--- NOTE | 2022-05-31 22:55 | ER ---
Nurse's Notes [facility] Name: Alejandro Dunbar Age: 56 yrs Sex: Male : 1965 Arrival Date: 05/31/2022 Time: 21:29 Bed 6 Private MD: Diagnosis: Hyperkalemia;Acute pulmonary edema;End stage renal disease;Essential (primary) hypertension Presentation: 05/31 21:41 Chief complaint: Patient states: " I was here two weeks ago. I had water in my lungs. I tw5 go to dialysis on MW and I had dialysis Wednesday." Patient denies pain. He states " I started to feel short of breath two hours ago." Patient states that he normally wears 3 L of 02 at home. He had arrived on . Coronavirus screen: Vaccine status: Patient reports receiving the 2nd dose of the covid vaccine. Superbly. Ebola Screen: Patient negative for fever greater than or equal to 101.5 degrees Fahrenheit, and additional compatible Ebola Virus Disease symptoms Patient denies exposure to infectious person. Patient denies travel to an Ebola-affected area in the 21 days before illness onset. Initial Sepsis Screen: Does the patient meet any 2 criteria? No. Patient's initial sepsis screen is negative. Does the patient have a suspected source of infection? No. Patient's initial sepsis screen is negative. Risk Assessment: Do you want to hurt yourself or someone else? Patient reports no desire to harm self or others. Onset of symptoms was May 31, 2022 at 19:00. 21:41 Method Of Arrival: Ambulatory tw5 21:41 Acuity: KERRI 2 tw5 Triage Assessment: 21:48 General: Appears in no apparent distress. Behavior is calm, cooperative, appropriate tw5 for age. Pain: Denies pain. Respiratory: Reports shortness of breath at rest Onset: The symptoms/episode began/occurred suddenly, the patient has severe shortness of breath. Respiratory: Airway is patent Respiratory effort is Breath sounds with crackles bilaterally. Historical: - Allergies: 21:48 No Known Allergies; tw5 - PMHx: 21:48 Diabetes - NIDDM; Dialysis; High Cholesterol; Hypertension; Hypothyroidism; tw5 - Immunization history:: Flu vaccine is up to date. - Social history:: Smoking status: Patient denies any tobacco usage or history of. Screenin:[facility] ED Fall Risk Assessment (Adult) History of falling in the last 3 months, tw5 including since admission No falls in past 3 months (0 pts). Abuse screen: Denies threats or abuse. Denies injuries from another. Nutritional screening: No deficits noted. Tuberculosis screening: No symptoms or risk factors identified. Assessment: 21:49 General: Appears in no apparent distress. Behavior is calm, cooperative, appropriate tw5 for age. Pain: Denies pain. Neuro: Level of Consciousness is awake, alert, obeys commands. Cardiovascular: Rhythm is sinus rhythm. Respiratory: Airway is patent Breath sounds with crackles bilaterally. 21:49 Respiratory: Respiratory pattern is regular, tw5 22:17 Reassessment: No changes from previously documented assessment. Patient and/or family tw5 updated on plan of care and expected duration. Pain level reassessed. Patient is alert, oriented x 3, equal unlabored respirations, skin warm/dry/pink. Vital Signs: 21:41 BP 161 / 77; Pulse 75; Resp 22; Temp 98.4; Pulse Ox 81% on R/A; Weight 77.11 kg; Height tw5 5 ft. 4 in. (162.56 cm); Pain 0/10; 22:17 BP 150 / 84; Pulse 77; Resp 18; Pulse Ox 96% on 4 lpm NC; tw5 21:41 Body Mass Index 29.18 (77.11 kg, 162.56 cm) tw5 ED Course: 21:29 Patient arrived in ED. ja2 21:34 Angel Sung DO is Attending Physician. ms3 21:46 Triage completed. tw5 21:48 Arm band placed on. tw5 21:49 Patient has correct armband on for positive identification. Placed in gown. Bed in low tw5 position. Call light in reach. Side rails up X 1. transitional living specialist on. Pulse ox on. NIBP on. Door closed. Warm blanket given. 21:51 Nasrin Corona is Primary Nurse. tw5 22:16 Initial lab(s) drawn, by me, sent to lab. Inserted saline lock: 22 gauge in right tw5 forearm, using aseptic technique. Blood collected. 22:16 COVID-19/FLU A+B/RSV Sent. tw5 22:16 Basic Metabolic Panel Sent. tw5 22:16 CBC with Diff Sent. tw5 22:17 Magnesium Sent. tw5 22:17 NT PRO-BNP Sent. tw5 22:17 Troponin HS Sent. tw5 22:53 Primitivo Rosario is Hospitalizing Provider. ms3 22:54 XRAY Chest (1 view) In Process Unspecified. EDMS 23:48 No provider procedures requiring assistance completed. Patient admitted, IV remains in tw5 place. Administered Medications: 23:17 Drug: Calcium Gluconate 2 grams Route: IVPB; Infused Over: 60 mins; Site: right forearm;jb4 06/01 00:02 Follow up: IV Status: Infusion continued upon admission tw5 05/31 23:18 Drug: D50W 50 ml Route: IVP; Site: right forearm; jb4 23:58 Follow up: Response: No adverse reaction tw5 23:18 Drug: Insulin Regular Human 10 units {Co-Signature: tw5 (Nasrin Corona).} Route: IVP; jb4 Site: right forearm; 23:58 Follow up: Response: No adverse reaction tw5 23:51 Not Given (Will be given by RT on the floorr): Albuterol 2.5 mg Inhalation every 20 tw5 minutes x3 23:58 Drug: Kayexalate (polystyrene) 45 grams Route: PO; tw5 23:58 Follow up: Response: No adverse reaction tw5 Medication: 21:49 VIS not applicable for this client. tw5 Outcome: 22:54 Decision to Hospitalize by Provider. ms3 23:40 Admitted to Med/surg Report called to attempted to call report tw5 23:48 Condition: stable tw5 23:49 Admitted to Med/surg room 421, Report called to called report to Caterina tw5 06/01 00:20 Patient left the ED. jb4 Signatures: Dispatcher [employer] EDMauri Gonsalez, RN RN jb4 Angel Sung DO DO ms3 Eleni Eisenberg Tiffany tw5 Nasrin Corona tw5 Corrections: (The following items were deleted from the chart) 05/31 22:21 22:17 COVID-19/FLU A+B+MOL.LAB.BRZ drawn and sent. tw5 EDMS
--- NOTE | 2022-05-31 22:55 | EDPHYS ---
Physician Documentation [facility] Name: Alejandro Dunbar Age: 56 yrs Sex: Male : 1965 Arrival Date: 05/31/2022 Time: 21:29 Bed 6 Private MD: ED Physician Angel Sung HPI: 05/31 21:49 This 56 yrs old Male presents to ER via Ambulatory with complaints of ms3 Breathing Difficulty, O2 82%. 21:49 56-year-old male with past medical history of diabetes, hyperlipidemia, hypertension, ms3 end-stage renal disease with dialysis on Wednesday and Wednesday presents for shortness of breath that began 2 hours prior to arrival. Patient states he was recently admitted for similar symptoms. Patient denies fevers, chills, nausea, vomiting, chest pain.. Historical: - Allergies: 21:48 No Known Allergies; tw5 - PMHx: 21:48 Diabetes - NIDDM; Dialysis; High Cholesterol; Hypertension; Hypothyroidism; tw5 - Immunization history:: Flu vaccine is up to date. - Social history:: Smoking status: Patient denies any tobacco usage or history of. ROS: 21:49 Constitutional: Negative for fever, and chills. Neck: Negative for injury, pain, and ms3 swelling, Cardiovascular: Negative for chest pain, and palpitations. 21:49 Abdomen/GI: Negative for abdominal pain, nausea, vomiting, diarrhea, and constipation, MS/Extremity: Negative for injury and deformity, Skin: Negative for injury, rash, and discoloration. 21:49 Respiratory: Positive for shortness of breath. 21:49 All other systems are negative. Exam: 21:49 Constitutional: This is a well developed, well nourished patient who is awake, alert, ms3 and in no acute distress. Head/Face: Normocephalic, atraumatic. Neck: Trachea midline, no cervical lymphadenopathy. Supple, full range of motion without nuchal rigidity, or vertebral point tenderness. No Meningismus. Chest/axilla: Normal chest wall appearance and motion. Nontender with no deformity. Cardiovascular: Regular rate and rhythm with a normal S1 and S2. No gallops, murmurs, or rubs. Normal PMI, no JVD. No pulse deficits. Abdomen/GI: Soft, non-tender, with normal bowel sounds. No distension or tympany. No guarding or rebound. No evidence of tenderness throughout. Skin: Warm, dry with normal turgor. Normal color with no rashes, no lesions, and no evidence of cellulitis. MS/ Extremity: Pulses equal, no cyanosis. Neurovascular intact. Full, normal range of motion. 21:49 Respiratory: moderate respiratory distress is noted, Respirations: normal, Breath sounds: rales, that are moderate, are located in both bases. 22:24 ECG was reviewed by the Attending Physician. ms3 Vital Signs: 21:41 BP 161 / 77; Pulse 75; Resp 22; Temp 98.4; Pulse Ox 81% on R/A; Weight 77.11 kg; Height tw5 5 ft. 4 in. (162.56 cm); Pain 0/10; 22:17 BP 150 / 84; Pulse 77; Resp 18; Pulse Ox 96% on 4 lpm NC; tw5 21:41 Body Mass Index 29.18 (77.11 kg, 162.56 cm) tw5 MDM: 21:48 Patient medically screened. ms3 21:49 Differential diagnosis: Myocardial Infarction pneumonia, pulmonary edema. ms3 22:55 Data reviewed: vital signs, nurses notes, lab test result(s), EKG, radiologic studies, ms3 plain films. Consideration of Admission/Observation Patient was admitted/placed on observation. Management of patient was discussed with the following: Hospitalist: Discussed case with RYAN Garcia, and she accepts patient on behalf of Dr Rosario.. I considered the following discharge prescriptions or medication management in the emergency department Medications were administered in the Emergency Department. See MAR. Independent interpretation of the following test(s) in the Emergency Department EKG: See my EKG interpretation above manager oncology: rate is 78 beats/min, Rhythm is normal sinus rhythm, regular, with no ectopy, Interpretation: normal rate, normal rhythm. Counseling: I had a detailed discussion with the patient and/or guardian regarding: the historical points, exam findings, and any diagnostic results supporting the discharge/admit diagnosis, lab results, radiology results, the need for further work-up and treatment in the hospital. ED course: Patient remains in stable condition in the ED. Discussed case with RYAN Garcia, and she accepts patient on behalf of Dr Rosario.. 22:58 Independent interpretation of the following test(s) in the Emergency Department X-Ray: ms3 My interpretation is CXR image reviewed by me: Pulmonary edema present.. 23:28 ED course: Discussed need for dialysis secondary to hyperkalemia, pulmonary edema and ms3 increased oxygenation demands with Dr Davies. Recommends Kayexalate and Albuterol. He will contact dialysis nurse.. 05/31 21:49 Order name: Basic Metabolic Panel; Complete Time: 22:50 ms3 05/31 21:49 Order name: CBC with Diff; Complete Time: 22:43 3 05/31 21:49 Order name: Magnesium; Complete Time: 22:50 ms3 05/31 21:49 Order name: NT PRO-BNP; Complete Time: 22:50 ms3 05/31 21:49 Order name: Troponin HS; Complete Time: 22:50 ms3 05/31 21:49 Order name: XRAY Chest (1 view) 3 05/31 21:49 Order name: EKG; Complete Time: 21:49 3 05/31 22:06 Order name: COVID-19/FLU A+B/RSV; Complete Time: 23:07 ms3 05/31 21:49 Order name: Cardiac monitoring; Complete Time: 22:16 ms3 05/31 21:49 Order name: EKG - Nurse/Tech; Complete Time: 22:16 3 05/31 21:49 Order name: IV Saline Lock; Complete Time: 22:16 ms3 05/31 21:49 Order name: Labs collected and sent; Complete Time: 22:16 ms3 05/31 21:49 Order name: O2 Per Protocol; Complete Time: 22:16 3 05/31 21:49 Order name: O2 Sat Monitoring; Complete Time: 22:16 ms3 EC:24 Rate is 73 beats/min. Rhythm is regular. QRS Inlet is Normal. SD interval is normal. QRS ms3 interval is normal. Clinical impression: Normal ECG. Interpreted by me. Reviewed by me. Administered Medications: 23:17 Drug: Calcium Gluconate 2 grams Route: IVPB; Infused Over: 60 mins; Site: right forearm;jb4 06/01 00:02 Follow up: IV Status: Infusion continued upon admission tw5 05/31 23:18 Drug: D50W 50 ml Route: IVP; Site: right forearm; jb4 23:58 Follow up: Response: No adverse reaction tw5 23:18 Drug: Insulin Regular Human 10 units {Co-Signature: tw (Nasrin Corona).} Route: IVP; jb4 Site: right forearm; 23:58 Follow up: Response: No adverse reaction tw5 23:51 Not Given (Will be given by RT on the floorr): Albuterol 2.5 mg Inhalation every 20 tw5 minutes x3 23:58 Drug: Kayexalate (polystyrene) 45 grams Route: PO; tw5 23:58 Follow up: Response: No adverse reaction tw5 Disposition: 22:55 Critical Care:. ms3 Disposition Summary: 05/31/22 22:54 Hospitalization Ordered Hospitalization Status: Inpatient Admission ms3 Provider: Primitivo Rosario ms3 Condition: Stable ms3 Problem: new ms3 Symptoms: are unchanged ms3 Bed/Room Type: Standard ms3 Location: Telemetry/MedSurg (Inpatient)(05/31/22 22:54) ms3 Room Assignment: [facility](05/31/22 23:15) vc1 Diagnosis - Hyperkalemia ms3 - Acute pulmonary edema ms3 - End stage renal disease ms3 - Essential (primary) hypertension ms3 Forms: - Medication Reconciliation Form ms3 - SBAR form ms3 Critical care time excluding procedures: 22:55 Critical care time: Bedside Care: 30 minutes, Consultation: 10 minutes. Total time: 40 ms3 minutes Signatures: Dispatcher [employer] EDMauri Gonsalez RN RN jb4 Angel Sung DO DO ms3 Nasrin Corona tw5 Judy Phillips RN RN vc1 Daniella Hanson, PA-C PA-C sb4 Nasrin Corona tw5 Corrections: (The following items were deleted from the chart) 22:21 21:52 COVID-19/FLU A+B+MOL.LAB.BRZ ordered. EDMS EDMS 22:54 22:54 Telemetry/MedSurg (Inpatient) ms3 ms3 22:54 22:54 ms3 ms3 23:15 22:54 ms3 vc1 23:32 23:28 ED course: Discussed need for dialysis with Dr Davies. Recommends Kayexalate ms3 and Albuterol. He will contact dialysis nurse.. ms3
[2022-05-31 23:02] LABS: SARS-COV-2 RT PCR NEGATIVE (NEGATIVE)
[2022-05-31] MEDS ORDERED: INSULIN -REGULAR HUMAN 50 UNIT/0.5 ML ML ONE (23:08)
[2022-05-31] MEDS ORDERED: CALCIUM GLUCONATE 1 GM IVPB 2 GM/100 ML BAG IV ONE (23:08)
--- NOTE | 2022-05-31 23:08 | P.HP ---
Certification for Inpatient Patient admitted to: Inpatient With expected LOS: >2 Midnights Patient will require the following post-hospital care: None Practitioner: I am a practitioner with admitting privileges, knowledge of patient current condition, hospital course, and medical plan of care. Services: Services provided to patient in accordance with Admission requirements found in Title 42 Section 412.3 of the Code of Federal Regulations Patient History Date of Service: 06/01/22 Reason for admission: ESRD, Hyperkalemia, Pulmonary Edema History of Present Illness: Patient is a 56-year-old male with history of ESRD on HD MWF, hypothyroidism, diabetes mellitus type 2 who presented to the emergency department for dyspnea and hypoxia. He was noted to be saturating 82% on RA and chronically requires 3L NC. He had a potassium of 6.2 with peaked T waves noted on EKG. No chest pain. Chest x-ray showed "Stable appearance of coarse bilateral central p redominant interstitial opacities with improved aeration in the left lung base compared to prior exam. Possible mild interstitial edema." He was given 2 grams calcium gluconate, D50, and insulin by emergency provider. Nephrology was contacted and recommended kayexalate and albuterol and dialysis first thing in the morning. Patient was desaturating on nasal cannula and was placed on bipap, he is tolerating well. Will admit to the hospital for further evaluation and management, dialysis. Allergies No Known Allergies Allergy (Verified 06/01/22 00:37) Home medications list reviewed: Yes Home Medications: Albuterol Sulfate [Proair Hfa] 2 puff IH Q4HP PRN 06/25/20 Ergocalciferol (Vitamin D2) [Vitamin D2] 50,000 unit PO SEECOM 06/25/20 Fluticasone [Flonase 50MCG Nasal Pruden*] 1 puff IH DAILY 06/25/20 Hydrocodone/Acetaminophen [Hydrocodone-Acetamin 10-325 mg] 1 tab PO Q6HP PRN 06/25/20 Levothyroxine [Synthroid*] 1 tab PO [id number] 06/25/20 Sevelamer Carbonate 1 tab PO TIDWM 06/25/20 Azithromycin Tab [Zithromax*] 250 mg PO DAILY #5 tab 03/19/22 Cefdinir [Cefdinir*] 300 mg PO BID #14 cap 11/17/22 Guaifenesin [Mucinex] 600 mg PO Q12H PRN #30 tab 03/19/22 predniSONE [Deltasone] 20 mg PO BID #11 tab 03/19/22 Fluticasone/Salmeterol [Advair 250-50 Diskus] 1 each IH BID 30 Days #60 aero 03/20/22 - Past Medical/Surgical History Diabetic: Yes -: hypertension -: hypothyroid -: TYPE 2 DIABETES -: Dyslipidemia -: ESRDMWF -: Hypoxic hypercapnic respiratory failure -: Trach with reversal Psychosocial/ Personal History: Patient lives at home alone. - Family History Sister -: Diabetes - Social History Smoking Status: Never smoker Alcohol use: No CD- Drugs: No Caffeine use: Yes Place of Residence: Home Review of Systems 10-point ROS is otherwise unremarkable Respiratory: Shortness of Breath Physical Examination - Vital Signs Temperature: 98.4 F Blood Pressure: 150/84 Pulse: 77 Respirations: 18 Pulse Ox (%): 96 (4L NC) - Physical Exam General: Alert, In no apparent distress HEENT: Atraumatic, PERRLA, EOMI, Sclerae nonicteric Neck: Supple, 2+ carotid pulse no bruit, No LAD, Without JVD or thyroid abnormality Respiratory: Crackles/rales Cardiovascular: Regular rate/rhythm, Normal S1 S2 Gastrointestinal: Normal bowel sounds, No tenderness Musculoskeletal: No tenderness Integumentary: No rashes Neurological: Normal speech, Normal strength at 5/5 x4 extr, Normal tone, Normal affect - Studies Laboratory Data (last 24 hrs) 05/31/22 22:03: WBC 8.20, Hgb 10.5 L, Hct 31.9 L, Plt Count 306 05/31/22 22:03: Sodium 135 L, Potassium 6.2 H*, BUN 86 H, Creatinine 12.30 H*, Glucose 144 H, Magnesium 2.5 H Assessment and Plan - Problems (Diagnosis) (1) Hyperkalemia Current Visit: Yes Status: Acute (2) Chronic respiratory failure with hypoxia and hypercapnia Current Visit: Yes Status: Chronic (3) DM type 2 (diabetes mellitus, type 2) Current Visit: Yes Status: Chronic Qualifiers: Diabetes mellitus nursing home insulin use: without nursing home use Diabetes mellitus complication status: with hyperglycemia Qualified Code(s): E11.65 - Type 2 diabetes mellitus with hyperglycemia (4) ESRD (end stage renal disease) on dialysis Current Visit: Yes Status: Chronic (5) Hypothyroidism Current Visit: Yes Status: Chronic Qualifiers: Hypothyroidism type: unspecified Qualified Code(s): E03.9 - Hypothyroidism, unspecified - Plan Patient is admitted for further management of hyperkalemia, pulmonary edema, ESRD. Dialysis first thing in the morning. Nephrology aware. Received calcium gluconate, albuterol, insulin, and kayexalate for hyperkalemia. Recheck potassium in morning. Monitor on telemetry. Continue bipap as needed. Wean as tolerated. Anticipate improvement following HD. ACHS accu checks with sliding scale insulin and diabetic diet. Monitor and replete electrolytes per protocol. Reconcile and continue home medications. Heparin for VTE prophylaxis. Full code. Discharge Plan: Home Plan to discharge in: Greater than 2 days - Advance Directives Does patient have a Living Will: No Does patient have a Durable POA for Healthcare: No - Code Status/Comfort Care Code Status Assessed: Yes Code Status: Full Code Physician Review: Patient Assessed, Agree with Above Assessment and Plan Critical Care: No Time Spent Managing Pts Care (In Minutes): 50
[2022-05-31] MEDS ORDERED: D10W 0 ML IV ONE (23:09)
[2022-05-31] MEDS ORDERED: D50W 25 GM/50 ML SYRINGE IV ONE (23:12)
[2022-05-31] MEDS ORDERED: ONDANSETRON 4 MG/2 ML VIAL IV PRN (23:54)
[2022-05-31] MEDS ORDERED: ACETAMINOPHEN 500 MG TAB PO PRN (23:54)
[2022-05-31] MEDS ORDERED: ALBUTEROL 2.5 MG/3 ML NEB SOL NEB PRN (23:54)
[2022-05-31] MEDS ORDERED: SOD POLYSTYREN SUL 15 GM/60 ML UCUP ONE (23:56)
[2022-06-01 04:06] LABS: Absolute Lymphocytes (CBC) 0.4 K/uL (0.7-4.9); Lymphocytes % 3.8 % (15.3-44.8); MCV 99.8 fL (80-100); MPV 7.5 fL (7.6-11.3); RBC Red Blood Cell Count 3.21 M/uL (4.33-5.43)
[2022-06-01] MEDS ORDERED: SOD POLYSTYREN SUL 15 GM/60 ML UCUP PO ONE ×2 (04:28)
[2022-06-01 05:28] LABS: Blood Morphology Comment NOTED (NOT SEEN); Burr Cells 1+; Platelet Estimate ADEQ
[2022-06-01 05:35] LABS: Albumin 3.7 g/dL (3.4-5.0); Magnesium 2.6 mg/dL (1.6-2.4); Protein, Total 7.5 g/dL (6.4-8.2)
[2022-06-01 05:40] LABS: Phosphorus 10.8 mg/dL (2.5-4.9); Potassium 5.8 mmol/L (3.5-5.1)
[2022-06-01] MEDS: INSULIN -REGULAR HUMAN 50 UNIT/0.5 ML ML SQ SCH ×4 (07:30→20:22)
[2022-06-01] MEDS: HEPARIN 5000 UNIT/ML 1 ML VIAL SQ SCH ×2 (08:08→20:21)
--- NOTE | 2022-06-01 08:56 | RAD REPORT ---
EXAM DESCRIPTION: XR Chest, 1 View CLINICAL HISTORY: The patient is 56 years old and is Male; D[facility]SP[facility] MAIN TECHNIQUE: Frontal view of the chest. COMPARISON: 05/11/22 chest radiograph FINDINGS: LUNGS: Stable appearance of coarse bilateral central predominant interstitial opacities with improved aeration in the left lung base compared to prior exam. No new focal consolidat ion.PLEURAL SPACE: No appreciable pleural effusion. No pneumothorax.HEART: See below.MEDIASTINUM: Stable prominence of the cardiomediastinal silhouette, likely exaggerated secondary to portable miko hnique, lordotic positioning, and patient body habitus.BONES/JOINTS: Unremarkable. IMPRESSION: Stable appearance of coarse bilateral central predominant interstitial opacities with im proved aeration in the left lung base compared to prior exam. Possible mild interstitial edema. Electronically signed by: Ben Durant MD 05/31/2022 11:28 PM TERMITE TREATER HELPER Due to temporary technical issues with the PACS/Fluency reporting system, reports are being signed by the in house radiologists without review as a courtesy to insure prompt reporting. The interpreting radiologist is fully responsible for the content of the report.
--- NOTE | 2022-06-01 16:19 | P.PN ---
Subjective Date of Service: 06/01/22 Chief Complaint: ESRD, Hyperkalemia, Pulmonary Edema Patient complains of shortness of breath during my examination this morning. Stated he was tired of using the BiPAP and was placed on 100% nonrebreather mask which he was tolerating. Physical Examination - Vital Signs Temperature: 97.1 F Blood Pressure: 153/71 Pulse: 69 Respirations: 19 Pulse Ox (%): 95 - Studies Laboratory Data (last 24 hrs) 05/31/22 22:03: WBC 8.20, Hgb 10.5 L, Hct 31.9 L, Plt Count 306 05/31/22 22:03: Sodium 135 L, Potassium 6.2 H*, BUN 86 H, Creatinine 12.30 H*, Glucose 144 H, Magnesium 2.5 H Assessment And Plan - Current Problems (Diagnosis) (1) Pulmonary edema Current Visit: Yes Status: Acute (2) Acute respiratory failure with hypoxia Current Visit: Yes Status: Acute (3) Hyperkalemia Current Visit: Yes Status: Acute (4) DM type 2 (diabetes mellitus, type 2) Current Visit: Yes Status: Chronic Qualifiers: Diabetes mellitus alf insulin use: without long distance operator use Diabetes mellitus complication status: with hyperglycemia Qualified Code(s): E11.65 - Type 2 diabetes mellitus with hyperglycemia (5) ESRD (end stage renal disease) on dialysis Current Visit: Yes Status: Chronic (6) Hypothyroidism Current Visit: Yes Status: Chronic Qualifiers: Hypothyroidism type: unspecified Qualified Code(s): E03.9 - Hypothyroidism, unspecified - Plan Physical Exam General: Alert, moderate respiratory distress. Neck: Supple, engorged neck veins Respiratory: Bilateral crackles/rales Cardiovascular: Regular rate/rhythm, Normal S1 S2 Gastrointestinal: Normal bowel sounds, No tenderness Musculoskeletal: No tenderness Integumentary: No rashes Neurological: No focal motor deficit. Plan: Urgent hemodialysis done today. Recheck potassium level. Further hemodialysis per nephrology. Wean oxygen as tolerated. ADA diet as tolerated. Insulin sliding scale for glucose management. Patient with a history of severe hypothyroidism. Recheck TSH and free T4. Reconcile and continue home medications.
[2022-06-01] MEDS ORDERED: ALBUTEROL 2.5 MG/3 ML NEB SOL NEB PRN (18:00)
--- NOTE | 2022-06-01 20:42 | P.PN ---
Date of Service: 06/02/22 Subjective: improving breathing more comfortably reports slight blood-tinged sputum he coughed up overnight/this morning no new/worsening symptoms s/p HD yesterday ROS: A complete review of systems was performed and is negative except as mentioned above Physical Exam: Gen: NAD, AOx3 HEENT: normal conjunctiva, sclera anicteric CV: regular rate & rhythm, trace- 1+ b/l lower extremity edema, IV/ systolic murmur Pulm: non-labored respirations on 3L NC, b/l crackles Abd: soft, non-tender, non-distended Neuro: normal affect, moves all extremities vitals reviewed Problem List acute on chronic hypoxemic respiratoy failure secondary to volume overload ESRD on HD Hyperkalemia with ekg changes NIDDM2 Hypothyroidism s/p urgent HD on 06/01 AM s/p kayexalate and HD Nephrology consulted K downtrending hyperphosphatemia improving continue to monitor labs planned for HD tomorrow wean O2 as tolerated; patient on ~3 L NC chronically at home insulin sliding scale h/o severe hypothyroidism, continue synthroid last levels checked 05/12/22 VTE: heparin SQ Code: full Dispo: home, ~1-2 days
--- NOTE | 2022-06-01 22:43 | CON ---
Date of Consultation: 06/01/2022 Chief Complaint: Fluid overload, respiratory failure, anasarca, hypoxemic respiratory failure, acute on chronic end-stage renal disease, hyperkalemia, and pulmonary edema. History Of Present Illness: The patient is a 56-year-old man with history of end-stage renal disease , on hemodialysis on Wednesday, Wednesday, Wednesday; diabetes mellitus type 2; hypothyroidism and obesity. He presented to the Emergency Department because of dyspnea and was found to have hypoxemia. He wa s noted to have a saturation of 82 on room air and chronically requires 3 L of nasal cannula. He was found to have hyperkalemia and EKG show peaked T-waves. Potassium level was 6.2. Emergent dialysis was ordered to treat hyperkalemia, provide metabolic clearance, and obtain ultrafiltration to treat fluid overload. The patient had workup done in the emergency room. Chest x-ray showed stable appear ance of coarse bilateral central predominant interstitial opacities with improved aeration in the lef t lung base compared to prior exam. Possible interstitial edema of mild degree. The patient was bea ated for hyperkalemia and received 2 g of calcium gluconate and IV dextrose with insulin by emergency room provider. Qc Scientist was consulted and it was recommended to give albuterol and Kayexalate. Urgent dialysis was ordered with potassium dialysate to treat hyperkalemia. Ultrafiltration was sta rted with dialysis and the patient tolerated dialysis. Review of Systems: Unobtainable. The patient was on BiPAP and he is lethargic, although arousable. Past Medical History: Hypertension; hypothyroidism; diabetes mellitus type 2; diabetic kidney diseas e; hypertensive heart and kidney disease; obstructive sleep apnea; obesity; end-stage renal disease a nd on Wednesday, Wednesday, and Wednesday treated with hemodialysis; dyslipidemia; hypoxemic hypercapnic re spiratory failure, trach with reversal. Family History: Sister diabetes. Social History: Denies tobacco, alcohol, or illicit drugs. Review of Systems: Unobtainable. Physical Examination: Vital Signs: Blood pressure 150/84, heart rate 72, respiratory rate 18, and SpO2 96%. General: The patient is arousable although he cannot provide review of systems. Eyes: Anicteric sclerae. EOMI. Ears, Nose, Mouth, And Throat: Oral mucosa moist. No pallor. Neck: Supple. No bruits. Lungs: Crackles and rales bilaterally. Heart: S1, S2. No pericardial friction rub. Abdomen: Soft, obese, nontender. No rebound. No guarding. Extremities: Edema present. Neurologic: Moving extremities. Cranial nerves intact. Laboratory Data: Sodium 135, potassium 6.2, BUN 86, creatinine 2.3, glucose 144, and magnesium 2.5. Hemoglobin 10.5, WBC 8.2, and platelet count is 36,000. Impression: 1.Hyperkalemia, severe acute with EKG changes. Hemodialysis with urgent procedure was scheduled. T he patient received albuterol inhaler, Kayexalate, IV calcium gluconate. Evaluate potassium level. Continue low-potassium diet. 2.Chronic respiratory failure with hypoxemia and hypercapnia. Continue BiPAP. 3.Diabetes mellitus with renal manifestation. Continue insulin. Monitor blood glucose level and ad just treatment with insulin. 4.End-stage renal disease, on dialysis. Continue dialysis for metabolic clearance and volume contro l. 5.Anemia of chronic kidney disease. Monitor hemoglobin level. Adjust SUMIT as needed. 6.Pulmonary edema due to volume overload. The patient will need treatment with dialysis and tomorro w the patient will have second dialysis session during this admission to treat fluid overload. 7.Diabetes mellitus. Continue insulin. 8.Hyperkalemia. The patient received multiple medications including calcium gluconate, albuterol, insulin, IV dextrose, and Kayexalate. Monitor potassium level. EB/MODL Voice ID: [id number] Report ID: [id number]
[2022-06-02 04:03] LABS: Absolute Lymphocytes (CBC) 0.7 K/uL (0.7-4.9); Hematocrit 30.7 % (39.6-49.0); MCV 98.6 fL (80-100); MPV 7.9 fL (7.6-11.3); RBC Red Blood Cell Count 3.11 M/uL (4.33-5.43)
[2022-06-02 04:36] LABS: Magnesium 2.3 mg/dL (1.6-2.4); Phosphorus 7.8 mg/dL (2.5-4.9); Potassium 3.7 mmol/L (3.5-5.1)
[2022-06-02] MEDS: INSULIN -REGULAR HUMAN 50 UNIT/0.5 ML ML SQ SCH ×4 (07:30→20:56)
[2022-06-02] MEDS: HEPARIN 5000 UNIT/ML 1 ML VIAL SQ SCH ×2 (08:32→20:56)
[2022-06-02] MEDS: AMLODIPINE 10 MG TAB PO SCH (15:09)
[2022-06-02] MEDS: SEVELAMER CARBONATE 800 MG TABLET PO SCH (16:33)
--- NOTE | 2022-06-02 17:01 | EKG ---
Test Date: 2022-05-31 Test Time: 22:08:43 Hotel Houseman: LISA MEASUREMENT RESULTS: Intervals: Rate: 73 MO: 164 QRSD: 94 QT: 392 QTc: 431 [place]: P: 40 MO: 164 QRS: 59 T: 79 INTERPRETIVE STATEMENTS: Normal sinus rhythm Normal ECG Compared to ECG 05/11/2022 01:14:47 No significant changes Electronically Signed On 06-02-22 16:56:09 LOAN INSPECTOR by Joe Al
[2022-06-02] MEDS: TRAZODONE 50 MG TABLET PO SCH (20:55)
[2022-06-02] MEDS: GUAIFENESIN 600 MG SA TAB PO SCH (20:55)
[2022-06-02] MEDS: GABAPENTIN 100 MG CAP PO SCH (20:55)
--- NOTE | 2022-06-03 00:05 | PN ---
Date of Progress Note: 06/02/2022 Chief Complaint: End-stage renal disease, fluid overload, respiratory failure, anasarca, hypoxemic r espiratory failure, xcoey-rs-moypzvd respiratory failure, end-stage renal disease, hyperkalemia, and pulmonary edema. Subjective: The patient is a 56-year-old man with history of end-stage renal disease, on hemodialysi s on Wednesday, Wednesday, Wednesday; diabetes mellitus type 2; hypothyroidism; and obesity. He presented to emergency room because of dyspnea and was found to have xuxky-ox-[id number] respiratory failure with hypoxemia. The patient has history of end-stage renal disease and he is dialysis dependent. Urgent dialysis was ordered to treat hyperkalemia and fluid overload. The patient was found to have hyperka lemia with potassium level of 6.2 associated with peak T-wave and emergent dialysis was done to treat hyperkalemia. The patient is feeling better today. He denies chest pain or palpitations. He can a mbulate without assistance. Review of Systems: Denies fever or chills. Physical Examination: Lungs: Clear to auscultation bilaterally. Heart: S1, S2. Abdomen: Soft. Extremities: Slight edema. Impression And Plan: 1.End-stage renal disease. The patient will have dialysis tomorrow. 2.Hyperkalemia, resolved. The patient was treated with hemodialysis and prior to dialysis, he recei dirk albuterol inhaler, Kayexalate, and IV calcium gluconate. Continue to monitor potassium level and encourage the patient to follow a low-potassium diet. The patient was effectively treated with dial ysis. Reevaluate lab work in the morning. 3.Chronic respiratory failure with hypoxemia and hypercapnia. Continue BiPAP as needed. 4.Diabetes mellitus with renal manifestation. Continue insulin. 5.Anemia of chronic kidney disease. Monitor hemoglobin level. Adjust SUMIT. EB/MODL Voice ID: [id number] Report ID: [id number]
[2022-06-03 03:47] LABS: Absolute Lymphocytes (CBC) 1.1 K/uL (0.7-4.9); Hematocrit 29.4 % (39.6-49.0); Lymphocytes % 16.2 % (15.3-44.8); MCV 98.6 fL (80-100); MPV 7.9 fL (7.6-11.3); RBC Red Blood Cell Count 2.99 M/uL (4.33-5.43)
[2022-06-03 04:27] LABS: Magnesium 2.2 mg/dL (1.6-2.4)
[2022-06-03 04:29] LABS: Phosphorus 9.2 mg/dL (2.5-4.9)
[2022-06-03] MEDS: LEVOTHYROXINE SOD 0.075 MG TAB PO SCH (05:56)
[2022-06-03] MEDS: INSULIN -REGULAR HUMAN 50 UNIT/0.5 ML ML SQ SCH ×5 (07:30→21:00)
[2022-06-03] MEDS: FOLIC ACID 1 MG TABLET PO SCH (08:27)
[2022-06-03] MEDS: GUAIFENESIN 600 MG SA TAB PO SCH ×2 (08:27→21:19)
[2022-06-03] MEDS: HEPARIN 5000 UNIT/ML 1 ML VIAL SQ SCH ×2 (08:27→21:19)
[2022-06-03] MEDS: SEVELAMER CARBONATE 800 MG TABLET PO SCH ×3 (08:27→17:07)
[2022-06-03] MEDS: predniSONE 10 MG TAB PO SCH (08:27)
[2022-06-03] MEDS: SENOSIDES 8.6 MG TAB PO SCH (08:27)
[2022-06-03] MEDS ORDERED: LEVOTHYROXINE SODIUM 75 MCG PO SCH (09:00)
[2022-06-03] MEDS: AMLODIPINE 10 MG TAB PO SCH (09:04)
[2022-06-03] MEDS: DOCUSATE NA 100 MG CAP PO SCH (09:05)
--- NOTE | 2022-06-03 13:02 | RAD REPORT ---
EXAM DESCRIPTION: Phil Single View06/03/2022 12:43 pm CLINICAL HISTORY: Shortness of breath COMPARISON: May 31, 2022 FINDINGS: Mild bilateral interstitial opacities without significant change Heart remains enlarged.
[2022-06-03] MEDS: EPOETIN ALFA 10,000 UNIT/ML VIAL IV SCH (16:00)
--- NOTE | 2022-06-03 16:29 | PN ---
Date of Progress Note: 06/03/2022 Subjective: The patient was admitted with over volume. The patient complaining from shortness of br eath and cough. Physical Examination: Vital Signs: Blood pressure 170/70, pulse of 79, afebrile. Chest: Crackles bilateral. Heart: S1, S2. Systolic murmur. Abdomen: Soft, nontender. Extremities: Plus edema. Neurologic: Alert, nonfocal. Laboratory Data: Chest x-ray, cardiomegaly with congestion. Hemoglobin 9.8. Sodium 134, potassium 4, bicarb 27, BUN 95, creatinine 11.8, calcium 7, phos 9.2, magnesium 2.2. Current Medications: The patient is on include, 1.Albuterol. 2.Heparin. 3.Amlodipine 10. 4.Gabapentin 100 daily. 5.Trazodone. 6.Folic acid. 7.Prednisone. 8.Levothyroxine. 9.Vitamin D. Assessment And Plan: 1.End-stage renal disease, over volume. We will do dialysis today and tomorrow and we will follow u p the patient. 2.Hypertension, controlled optimal. Continue current medications. 3.Anemia of chronic kidney disease. Resume SUMIT. 4.Respiratory failure secondary to over volume. We will continue to challenge the patient. 5.Diabetes as by primary. 6.Cough with hemoptysis. We will repeat chest x-ray and I am going to send sputum for culture. JESUS Voice ID: [id number] Report ID: [id number]
--- NOTE | 2022-06-03 17:26 | P.PN ---
Date of Service: 06/03/22 Subjective: improving breathing more comfortably still with some slight blood-tinged sputum - have not visualized no new/worsening symptoms s/p HD yesterday ROS: A complete review of systems was performed and is negative except as mentioned above Physical Exam: Gen: NAD, AOx3 HEENT: normal conjunctiva, sclera anicteric CV: regular rate & rhythm, trace- 1+ b/l lower extremity edema, IV/ systolic murmur Pulm: non-labored respirations on 3L NC, diminished bilaterally, +cough Abd: soft, non-tender, non-distended Neuro: normal affect, moves all extremities, weak voice vitals reviewed Problem List acute on chronic hypoxemic respiratoy failure secondary to volume overload ESRD on HD Hyperkalemia with ekg changes NIDDM2 Hypothyroidism s/p urgent HD on 06/01 AM s/p kayexalate and HD Nephrology consulted K downtrending hyperphosphatemia improved continue to monitor labs planned for HD today and tomorrow wean O2 as tolerated; patient on ~3 L NC chronically at home insulin sliding scale h/o severe hypothyroidism, continue synthroid last levels checked 05/12/22 VTE: heparin SQ Code: full Dispo: home, anticipate dc home tomorrow after HD
[2022-06-03] MEDS: GABAPENTIN 100 MG CAP PO SCH (21:19)
[2022-06-03] MEDS: TRAZODONE 50 MG TABLET PO SCH (21:19)
[2022-06-04 03:27] LABS: Absolute Lymphocytes (CBC) 1.1 K/uL (0.7-4.9); Hematocrit 30.3 % (39.6-49.0); Lymphocytes % 15.5 % (15.3-44.8); MCV 97.3 fL (80-100); RBC Red Blood Cell Count 3.12 M/uL (4.33-5.43)
[2022-06-04 03:43] LABS: Magnesium 2.1 mg/dL (1.6-2.4); Phosphorus 4.8 mg/dL (2.5-4.9); Potassium 3.4 mmol/L (3.5-5.1)
[2022-06-04] MEDS: LEVOTHYROXINE SOD 0.075 MG TAB PO SCH (06:02)
[2022-06-04] MEDS: INSULIN -REGULAR HUMAN 50 UNIT/0.5 ML ML SQ SCH ×4 (07:30→21:49)
[2022-06-04] MEDS: HEPARIN 5000 UNIT/ML 1 ML VIAL SQ SCH ×2 (08:08→21:48)
[2022-06-04] MEDS: GUAIFENESIN 600 MG SA TAB PO SCH ×2 (08:08→21:48)
[2022-06-04] MEDS: SENOSIDES 8.6 MG TAB PO SCH (08:08)
[2022-06-04] MEDS: AMLODIPINE 10 MG TAB PO SCH (08:08)
[2022-06-04] MEDS: FOLIC ACID 1 MG TABLET PO SCH (08:08)
[2022-06-04] MEDS: DOCUSATE NA 100 MG CAP PO SCH (08:08)
[2022-06-04] MEDS: predniSONE 10 MG TAB PO SCH (08:08)
[2022-06-04] MEDS: SEVELAMER CARBONATE 800 MG TABLET PO SCH ×3 (08:08→16:11)
[2022-06-04] MEDS: FLUTICASONE 50MCG NASAL SPRAY NAS SCH ×2 (08:16→21:00)
--- NOTE | 2022-06-04 11:29 | RAD REPORT ---
EXAM DESCRIPTION: CT - Soft Tissue Neck Wo Contr - 06/04/2022 9:30 am CLINICAL HISTORY: Hx of stridor. S/p Trach COMPARISON: Soft Tissue Neck W/Contr dated 05/13/2022 TECHNIQUE: Axial 3 millimeter thick images of the neck were obtained without IV contrast. Sagittal a nd coronal reconstruction images were generated and reviewed. All CT scans are performed using dose optimization technique as appropriate and may include automated exposure control or mA/KV adjustment according to patient size. FINDINGS: Partially imaged paranasal sinuses are clear. Left side mastoid air cells are clear. Right -side mastoid air cells are opacified similar to the comparison study. Middle ear is normally aerated . No globe or orbital content abnormality seen. Incidental note made of arachnoid cyst in the anterio r portion left middle cranial fossa. Nasopharyngeal tissues are symmetric and normal in appearance. Normal parapharyngeal fat. No abnormal soft palate thickening. No tonsil or tongue base abnormality identifiable. The nasal pharyngeal air cavity in the upper oropharyngeal air cavity are normal in size. No vocal co rd abnormality identified. There is significant narrowing of the airway in the supraglottic portion. Piriform sinuses are incompletely distended. The narrowed airway pattern is very similar to the Janua ry 11 study. A discrete mass is source for the narrowing is not identifiable. Soft tissue stranding is present at the prior tracheostomy site. No unexpected finding. IMPRESSION: Significant supraglottic airway narrowing is present without a discrete mass identified. Valleculae and piriform sinuses are incompletely distended. No new mass or suspicious finding identified. The above detailed findings are very similar to the Simone uary 11 examination.
--- NOTE | 2022-06-04 13:23 | P.CNS ---
Date of Consult: 06/11/22 Reason for Consult: Respiratory distress Chief Complaint: ESRD, Hyperkalemia, Pulmonary Edema History of Present Illness: Respiratory distress/Patient is a 56-year-old male with history of ESRD on HD MWF, hypothyroidism, diabetes mellitus type 2 who presented to the emergency department for dyspnea and hypoxia. Patient is 56 years of age well-known to me regarding hospital admissions he's had a trach before end-stage hemodialysis severe hypothyroidism possibility of noncompliance. This is his third admission he appears to be hypoxic Allergies No Known Allergies Allergy (Verified 06/01/22 00:37) Home Medications: Amlodipine Besylate 1 tab PO DAILY 06/02/22 Docusate Sodium 100 mg PO DAILY 06/02/22 Ergocalciferol (Vitamin D2) [Vitamin D2] 1 cap PO SEECOM 06/02/22 Gabapentin 100 mg PO BEDTIME 06/02/22 Hydrocodone/Acetaminophen [Hydrocodone-Acetamin 10-325 mg] 1 tab PO Q6H PRN 06/02/22 Levothyroxine Sodium [Levothyroxine] 1 tab PO DAILY 06/02/22 Sennosides [Senna] 1 tab PO DAILY 06/02/22 Sevelamer Carbonate 1 tab PO TID 06/02/22 Sitagliptin Phosphate [Januvia] 1 tab PO DAILY 06/02/22 Trazodone [Desyrel*] 25 mg PO BEDTIME 06/02/22 predniSONE [Deltasone*] 1 tab PO DAILY 06/02/22 - Past Medical/Surgical History Diabetic: Yes -: hypertension -: hypothyroid -: TYPE 2 DIABETES -: Dyslipidemia -: ESRDMWF -: Hypoxic hypercapnic respiratory failure -: Trach with reversal Psychosocial/ Personal History: Patient lives at home alone. - Family History Sister Medical History: Diabetes - Social History Smoking Status: Unknown if ever smoked Alcohol use: No CD- Drugs: No Caffeine use: Yes Place of Residence: Home Review of Systems Respiratory: Shortness of Breath Physical Examination Temp Pulse Resp BP Pulse Ox 98.2 F 76 19 163/73 H 98 06/04/22 12:00 06/04/22 12:00 06/04/22 12:00 06/04/22 12:00 06/04/22 12:00 General: Alert, Mild distress Respiratory: Clear to auscultation bilaterally, Stridor Cardiovascular: No edema, Normal pulses, Regular rate/rhythm - Problems (1) Stridor Current Visit: Yes Status: Acute Plan: Patient is 56 years of age well known to tx history of recurrent hospital admissions severe hypothyroidism presumed underlying sleep apnea end-stage renal disease metabolic syndrome admitted with respiratory distress suspect Stridor he does have the inaudible Stridor.CT scan of the neck Significant supraglottic airway narrowing is present without a discrete mass identified. Valleculae and piriform sinuses are incompletely distended. No new mass or suspicious finding identified. The above detailed findings are very similar to the May 13 examination. Recommend evaluation by ENTPatient most likely has underlying significant sleep apneaI also ordered a TSH level
--- NOTE | 2022-06-04 13:49 | PN ---
Date of Progress Note: 06/04/2022 Subjective: Patient was admitted with over volume, respiratory failure. The patient had dialysis ye sterday, today feeling better. Still has shortness of breath. The patient's chest x-ray still showi ng over volume. Physical Examination: Vital Signs: When I saw the patient; blood pressure 169/79, pulse of 69, afebrile. Chest: Crackles bilateral. Heart: S1, S2. Systolic murmur. Abdomen: Soft, nontender, obese. No organomegaly. Extremities: Trace edema. Neurologic: Alert. No focality. Laboratory Data: Hemoglobin 10.2. Sodium 134, potassium 3.4, bicarb 29, BUN 53, creatinine 7.8, benjy cium 7.7, phosphorus 4.8, magnesium 2.1. Current Medications: The patient on include; 1.Epogen. 2.Amlodipine. 3.Gabapentin 100 at bedtime. 4.Trazodone. 5.Renvela. 6.Folic acid. 7.Prednisone. Assessment And Plan: 1.End-stage renal disease. I am going to go ahead and arrange for sequential dialysis today and we will follow up the patient. Tomorrow, we will do regular dialysis and we will follow up. 2.Hypokalemia. The patient is going to be dialyzed tomorrow on high potassium bath. 3.Hypertension. We will utilize blood pressure for more diuresis. 4.Respiratory failure secondary to over volume. Continue current treatment. We will dialyze today and tomorrow. JESUS Voice ID: [id number] Report ID: [id number]
[2022-06-04] MEDS: EPOETIN ALFA 10,000 UNIT/ML VIAL IV SCH (14:00)
[2022-06-04] MEDS: CETIRIZINE HCL 5 MG TABLET PO SCH (15:17)
[2022-06-04] MEDS: FAMOTIDINE 20 MG TAB PO SCH (15:17)
--- NOTE | 2022-06-04 17:39 | P.PN ---
Date of Service: 06/04/22 ENT Consultation Please see dictated H&P. Impression: 1. Supraglottic edema-- improved from prior admission. Believe that on CT his SG airway collapses because he is supine. Direct visualization with laryngoscopy demonstrates mild/moderate floppy mucosa, but airway is widely patent. Plan: 1. Continue steroids and recommend H1/H2 blockers. 2. Recommend H1/H2 blockers outpatient. 3. Recommend outpatient f/up in 1-2 weeks. 4. Recommend allergy testing outpatient. Thank you for this consultation.
[2022-06-04] MEDS ORDERED: METHYLPREDNISOLONE 40 MG INJ IV SCH (18:00)
[2022-06-04] MEDS: GABAPENTIN 100 MG CAP PO SCH (21:48)
[2022-06-04] MEDS: TRAZODONE 50 MG TABLET PO SCH (21:48)
--- NOTE | 2022-06-04 22:53 | P.PN ---
Date of Service: 06/04/22 Subjective: improving weaning oxygen pulm reported stridor on exam pt feels some narrowing in upper airway but feels no significant change reports twitches in b/l hands, over last month, maybe worse over last 1-2 weeks ROS: A complete review of systems was performed and is negative except as mentioned above Physical Exam: Gen: NAD, AOx3 HEENT: normal conjunctiva, sclera anicteric CV: regular rate & rhythm, trace- 1+ b/l lower extremity edema, IV/ systolic murmur Pulm: non-labored respirations on 2L NC, diminished bilaterally, +cough Abd: soft, non-tender, non-distended Neuro: normal affect, moves all extremities, weak voice vitals reviewed Problem List acute on chronic hypoxemic respiratoy failure secondary to volume overload ESRD on HD Hyperkalemia with ekg changes NIDDM2 Hypothyroidism s/p urgent HD on 06/01 AM s/p kayexalate and HD Nephrology consulted K downtrending hyperphosphatemia improved hypocalcemia, chronic continue to monitor labs planned for further sequential HD today and tomorrow again wean O2 as tolerated; patient on ~3 L NC chronically at home insulin sliding scale h/o severe hypothyroidism, continue synthroid last levels checked 05/12/22 stridor on exam pulm ordered CT to eval, pt with h/o swelling / narrowinig noted moderate-significant narrowing ENT consulted - pt previously required tracheostomy for this issue, which has since been removed suspect allergy; increased steroids, added h1/h2 christiana f/u ENT recommendations / after eval today VTE: heparin SQ Code: full Dispo: home, anticipate dc home tomorrow after HD
[2022-06-05 03:40] LABS: Absolute Lymphocytes (CBC) 1.1 K/uL (0.7-4.9); Hematocrit 32.8 % (39.6-49.0); Lymphocytes % 12.6 % (15.3-44.8); MCV 98.2 fL (80-100); MPV 7.7 fL (7.6-11.3); RBC Red Blood Cell Count 3.35 M/uL (4.33-5.43)
[2022-06-05 03:55] LABS: Albumin 3.7 g/dL (3.4-5.0); Magnesium 2.2 mg/dL (1.6-2.4); Phosphorus 7.5 mg/dL (2.5-4.9); Potassium 4.1 mmol/L (3.5-5.1)
[2022-06-05 04:18] LABS: Thyroid Stimulating Hormone 99.2 uIU/mL (0.358-3.740)
[2022-06-05] MEDS ORDERED: LEVOTHYROXINE SOD 0.1 MG TAB PO SCH (06:30)
[2022-06-05] MEDS: INSULIN -REGULAR HUMAN 50 UNIT/0.5 ML ML SQ SCH ×4 (07:30→20:33)
[2022-06-05] MEDS: GUAIFENESIN 600 MG SA TAB PO SCH ×2 (08:13→20:31)
[2022-06-05] MEDS: FAMOTIDINE 20 MG TAB PO SCH (08:13)
[2022-06-05] MEDS: SENOSIDES 8.6 MG TAB PO SCH (08:13)
[2022-06-05] MEDS: SEVELAMER CARBONATE 800 MG TABLET PO SCH ×3 (08:13→16:46)
[2022-06-05] MEDS: DOCUSATE NA 100 MG CAP PO SCH (08:13)
[2022-06-05] MEDS: AMLODIPINE 10 MG TAB PO SCH (08:13)
[2022-06-05] MEDS: HEPARIN 5000 UNIT/ML 1 ML VIAL SQ SCH ×2 (08:13→20:32)
[2022-06-05] MEDS: FOLIC ACID 1 MG TABLET PO SCH (08:13)
[2022-06-05] MEDS: CETIRIZINE HCL 5 MG TABLET PO SCH (08:13)
[2022-06-05] MEDS: FLUTICASONE 50MCG NASAL SPRAY NAS SCH ×2 (08:20→20:33)
--- NOTE | 2022-06-05 12:36 | P.PN ---
Subjective Date of Service: 06/05/22 Chief Complaint: ESRD, Hyperkalemia, Pulmonary Edema Subjective: Other (received HD today.) Physical Examination - Vital Signs Temperature: 97.6 F Blood Pressure: 142/67 Pulse: 72 Respirations: 18 Pulse Ox (%): 95 - Physical Exam General: Other (chronically ill-appearing) HEENT: Atraumatic, Normocephalic Neck: Supple Respiratory: Other (symmetric chest expansion) Cardiovascular: No rubs, No murmurs Gastrointestinal: Soft and benign, No guarding Musculoskeletal: No clubbing Integumentary: No warmth Neurological: Other (Has lethargy) Lymphatics: No axilla or inguinal lymphadenopathy Urinary: Other (no bladder distention) External genitalia: Deferred Rectal: Deferred Assessment And Plan - Plan 1. End-stage renal disease. HD received today. 2. Hypokalemia. Correction via HD 3. HyperPO4. Sevelamer. 4. HypoCa. Correction via HD. Cont D suppl. 5. Hypertension. continue current medication management. 6. Acute respiratory failure, volume overload. HD as above. Physician Review: Patient Assessed, Agree with Above Assessment and Plan
[2022-06-05] MEDS: EPOETIN ALFA 10,000 UNIT/ML VIAL IV SCH (14:02)
[2022-06-05] MEDS: TRAZODONE 50 MG TABLET PO SCH (20:31)
[2022-06-05] MEDS: GABAPENTIN 100 MG CAP PO SCH (20:31)
--- NOTE | 2022-06-05 20:40 | P.PN ---
Date of Service: 06/05/22 Subjective: seems more tired this morning no significant change / improvement ROS: A complete review of systems was performed and is negative except as mentioned above Physical Exam: Gen: NAD, AOx3 HEENT: normal conjunctiva, sclera anicteric CV: regular rate & rhythm, trace- 1+ b/l lower extremity edema, IV/ systolic murmur Pulm: non-labored respirations on 2L NC, diminished bilaterally, +cough Abd: soft, non-tender, non-distended Neuro: normal affect, moves all extremities, weak voice vitals reviewed Problem List acute on chronic hypoxemic respiratoy failure secondary to volume overload ESRD on HD Hyperkalemia with ekg changes NIDDM2 supraglottic swelling / narrowing Hypothyroidism s/p urgent HD on 06/01 AM and ongoing HD s/p kayexalate and HD Nephrology consulted K downtrending hyperphosphatemia improved hypocalcemia, chronic continue to monitor labs planned for further sequential HD today wean O2 as tolerated; patient on ~3 L NC chronically at home insulin sliding scale h/o severe hypothyroidism, continue synthroid last levels checked 05/12/22 recheck with increased TSH concern for myxedema, significant hypothyroidism start IV levothyroxine stridor on exam pulm ordered CT to eval, pt with h/o swelling / narrowinig noted moderate-significant supraglottic narrowing ENT consulted - pt previously required tracheostomy for this issue, which has since been removed suspect allergy; steroids, added h1/h2 christiana ENT evaluated patient, scoped on 06/04, reported looks better; seems to be position dependent; ok when sitting up but obstructive when laying flat VTE: heparin SQ Code: full Dispo: home, anticipate dc Wednesday; needs iv levothyroxine
[2022-06-06] MEDS: LEVOTHYROXINE SODIUM 100 MCG VIAL IV SCH (06:16)
--- NOTE | 2022-06-06 07:13 | P.PN ---
Date of Service: 06/06/22 Subjective: feels slightly better less spasms, ROS: A complete review of systems was performed and is negative except as mentioned above Physical Exam: Gen: NAD, AOx3 HEENT: normal conjunctiva, sclera anicteric. swelling in lower face/neck CV: regular rate & rhythm, trace- 1+ b/l lower extremity edema, IV/ systolic murmur Pulm: non-labored respirations on 2L NC, diminished bilaterally, +cough, mild stridor Abd: soft, non-tender, non-distended Neuro: normal affect, moves all extremities, weak voice vitals reviewed Problem List acute on chronic hypoxemic respiratoy failure secondary to volume overload ESRD on HD Hyperkalemia with ekg changes NIDDM2 supraglottic swelling / narrowing Hypothyroidism s/p urgent HD on 06/01 AM and ongoing HD s/p kayexalate and HD Nephrology consulted electrolyte abnormalities improving continue to monitor labs wean O2 as tolerated; patient on ~3 L NC chronically at home insulin sliding scale h/o severe hypothyroidism, continue synthroid last levels checked 05/12/22 recheck with increased TSH to 90s concern for myxedema, significant hypothyroidism start IV levothyroxine 2/3 dc on 150mcg synthroid, up from home 75mcg stridor on exam pulm ordered CT to eval, pt with h/o swelling / narrowinig noted moderate-significant supraglottic narrowing ENT consulted - pt previously required tracheostomy for this issue, which has since been removed suspect allergy; steroids, added h1/h2 christiana ENT evaluated patient, scoped on 06/04, reported looks better; seems to be position dependent; ok when sitting up but obstructive when laying flat VTE: heparin SQ Code: full Dispo: home, anticipate dc Wednesday; needs iv levothyroxine for now
[2022-06-06] MEDS: GUAIFENESIN 600 MG SA TAB PO SCH ×2 (08:34→20:24)
[2022-06-06] MEDS: HEPARIN 5000 UNIT/ML 1 ML VIAL SQ SCH ×2 (08:34→20:24)
[2022-06-06] MEDS: FOLIC ACID 1 MG TABLET PO SCH (08:34)
[2022-06-06] MEDS: SENOSIDES 8.6 MG TAB PO SCH (08:35)
[2022-06-06] MEDS: FAMOTIDINE 20 MG TAB PO SCH (08:35)
[2022-06-06] MEDS: CETIRIZINE HCL 5 MG TABLET PO SCH (08:35)
[2022-06-06] MEDS: SEVELAMER CARBONATE 800 MG TABLET PO SCH ×3 (08:35→17:16)
[2022-06-06] MEDS: DOCUSATE NA 100 MG CAP PO SCH (08:35)
[2022-06-06] MEDS: INSULIN -REGULAR HUMAN 50 UNIT/0.5 ML ML SQ SCH ×4 (08:35→20:25)
[2022-06-06] MEDS: AMLODIPINE 10 MG TAB PO SCH (08:35)
[2022-06-06] MEDS: FLUTICASONE 50MCG NASAL SPRAY NAS SCH ×2 (08:36→20:26)
[2022-06-06 09:07] LABS: Albumin 3.8 g/dL (3.4-5.0); Magnesium 2.2 mg/dL (1.6-2.4); Phosphorus 5.2 mg/dL (2.5-4.9); Potassium 4.4 mmol/L (3.5-5.1)
--- NOTE | 2022-06-06 10:24 | P.PN ---
Subjective Date of Service: 06/06/22 Chief Complaint: Severe hypothyroidism Patient seems to be improving and able to communicate very difficult to understand he is alert Review of Systems is unable to be obtained Physical Examination - Vital Signs Temperature: 97.6 F Blood Pressure: 142/67 Pulse: 72 Respirations: 18 Pulse Ox (%): 95 - Physical Exam General: Alert, Cooperative Respiratory: Clear to auscultation bilaterally, Diminished Cardiovascular: No edema, Regular rate/rhythm Assessment And Plan - Current Problems (Diagnosis) (1) Stridor Current Visit: Yes Status: Acute Plan: Most likely his stridor is from severe hypothyroidism is like he has myxedema not sure if he was taking his Synthroid at home will trial of IV Synthroid for now patient has end-stage renal disease seen by ENT on dialysis vital signs stable blood pressure control possible discharge on Wednesday on 150 mcg of levothyroxine Physician Review: Patient Assessed, Agree with Above Assessment and Plan
--- NOTE | 2022-06-06 12:56 | PN ---
Date of Progress Note: 06/06/2022 Subjective: The patient was admitted with over volume, CHF exacerbation. The patient was dialyzed o n a daily basis, currently normal volume, on room air. Physical Examination: Vital Signs: Blood pressure 142/67, pulse of 72. The patient dialyzed yesterday. We managed to rem ove 2 L. Chest: Crackles bilateral base. Heart: S1, S2. Systolic murmur. Abdomen: Soft, nontender. Extremities: Trace edema. Neurologic: Alert. No focality. Laboratory Data: Hemoglobin 11. Sodium 135, potassium 4.4, bicarb 27, BUN 53, creatinine 8.4, calci um 8.4, phosphorus 5.2, magnesium 2.2. Current Medications: The patient on include; 1.Epogen. 2.Amlodipine. 3.Gabapentin. 4.Trazodone. 5.Renvela. 6.Flonase. 7.Pepcid. 8.Zofran. 9.Levothyroxine. 10.Docusate. Assessment And Plan: 1.End-stage renal disease. Used to be over volume, currently normal volume. the patient to his schedule of dialysis Wednesday, Wednesday, Wednesday. We will arrange for dialysis Wednesday. The berta colin cleared from the Renal standpoint for discharge planning. 2.Hypertension, controlled, optimal. Continue current treatment. 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 We will f ollow up with Pulmonary. 4.Hyponatremia secondary to renal failure. No need for treatment. Will be corrected with dialysis. STEPH/CASSIE Voice ID: [id number] Report ID: [id number]
[2022-06-06] MEDS: TRAZODONE 50 MG TABLET PO SCH (20:24)
[2022-06-06] MEDS: GABAPENTIN 100 MG CAP PO SCH (20:24)
[2022-06-07 04:33] LABS: Albumin 3.8 g/dL (3.4-5.0); Magnesium 2.2 mg/dL (1.6-2.4); Phosphorus 6.9 mg/dL (2.5-4.9)
[2022-06-07] MEDS: LEVOTHYROXINE SODIUM 100 MCG VIAL IV SCH (05:59)
--- NOTE | 2022-06-07 07:21 | P.PN ---
Date of Service: 06/07/22 Subjective: still with complaints of sore throat / weak voice has been walkign halls without oxygen, tolerating PO intake ROS: A complete review of systems was performed and is negative except as mentioned above Physical Exam: Gen: NAD, AOx3 HEENT: normal conjunctiva, sclera anicteric. swelling in lower face/neck CV: regular rate & rhythm, trace- 1+ b/l lower extremity edema, IV/ systolic murmur Pulm: non-labored respirations on room air, transmitted upper airway noises, diminished bilaterally, +cough Abd: soft, non-tender, non-distended Neuro: normal affect, moves all extremities, weak voice vitals reviewed Problem List acute on chronic hypoxemic respiratoy failure secondary to volume overload ESRD on HD Hyperkalemia with ekg changes NIDDM2 supraglottic swelling / narrowing Hypothyroidism s/p urgent HD on 06/01 AM and ongoing HD s/p kayexalate and HD Nephrology consulted electrolyte abnormalities improving continue to monitor labs wean O2 as tolerated; patient on ~3 L NC chronically at home insulin sliding scale h/o severe hypothyroidism, continue synthroid last levels checked 05/12/22 recheck with increased TSH to 90s concern for myxedema, significant hypothyroidism start IV levothyroxine 2/3 dc on 150mcg synthroid, up from home 75mcg stridor on exam pulm ordered CT to eval, pt with h/o swelling / narrowinig noted moderate-significant supraglottic narrowing ENT consulted - pt previously required tracheostomy for this issue, which has since been removed suspect allergy; steroids, added h1/h2 [facility] evaluated patient, scoped on 06/04, reported looks better; seems to be position dependent; ok when sitting up but obstructive when laying flat VTE: heparin SQ Code: full Dispo: home, anticipate dc Wednesday; needs iv levothyroxine for now dc home with 150mcg synthroid
[2022-06-07] MEDS: INSULIN -REGULAR HUMAN 50 UNIT/0.5 ML ML SQ SCH ×4 (07:30→20:45)
[2022-06-07] MEDS: CETIRIZINE HCL 5 MG TABLET PO SCH (09:00)
[2022-06-07] MEDS: FOLIC ACID 1 MG TABLET PO SCH (09:00)
[2022-06-07] MEDS ORDERED: DRISDOL (VITAMIN D=ERGOCALCIFEROL) 50000 UNIT CAP PO SCH (09:00)
[2022-06-07] MEDS: HEPARIN 5000 UNIT/ML 1 ML VIAL SQ SCH ×2 (09:01→20:49)
[2022-06-07] MEDS: FLUTICASONE 50MCG NASAL SPRAY NAS SCH ×2 (09:01→21:00)
[2022-06-07] MEDS: SEVELAMER CARBONATE 800 MG TABLET PO SCH ×3 (09:01→16:55)
[2022-06-07] MEDS: FAMOTIDINE 20 MG TAB PO SCH (09:01)
[2022-06-07] MEDS: SENOSIDES 8.6 MG TAB PO SCH (09:01)
[2022-06-07] MEDS: DOCUSATE NA 100 MG CAP PO SCH (09:01)
[2022-06-07] MEDS: GUAIFENESIN 600 MG SA TAB PO SCH ×2 (09:01→20:45)
[2022-06-07] MEDS: AMLODIPINE 10 MG TAB PO SCH (09:02)
--- NOTE | 2022-06-07 10:45 | P.PN ---
Subjective Date of Service: 06/07/22 Chief Complaint: Severe hypothyroidism Patient is improving still complaining problems with his throat Review of Systems is unable to be obtained Physical Examination - Vital Signs Temperature: 98.0 F Blood Pressure: 147/69 Pulse: 73 Respirations: 20 Pulse Ox (%): 90 - Physical Exam General: Alert, Cooperative Respiratory: Clear to auscultation bilaterally, Diminished Cardiovascular: No edema, Normal pulses Assessment And Plan - Current Problems (Diagnosis) (1) Stridor Current Visit: Yes Status: Acute Plan: Patient is improving looks better facial puffiness is decreased and for discharge tomorrow 150 mcg of Synthroid to follow-up with me check his TSH level in 2 weeks no progression of his subglottic stenosis is all likely due to severe hypothyroidism Physician Review: Patient Assessed, Agree with Above Assessment and Plan
--- NOTE | 2022-06-07 14:47 | PN ---
Date of Progress Note: 06/07/2022 Subjective: The patient was admitted with respiratory failure secondary to overvolume/subglottic carli nosis. Patient has a tracheostomy. Patient had significant hypothyroidism. Physical Examination: Vital Signs: When I saw the patient, blood pressure 147/69, pulse of 73. Afebrile. Chest: Crackles, bilateral. Heart: S1, S2. Regular. Abdomen: Soft, nontender. Morbidly obese. Extremities: Plus edema. Neurologic: Alert. No focality. Laboratory Data: Hemoglobin 11. Sodium 131, potassium 5, bicarb 24, BUN 75, creatinine 10.2, calciu m 8.2, phosphorus 6.9, magnesium 2.2. Current Medications: The patient on include: 1.Epogen. 2.Heparin. 3.Breathing treatment. 4.Amlodipine 10 mg. 5.Gabapentin. 6.Trazodone. 7.Renvela 800 with each meal. 8.Folic acid. 9.Flonase. 10.Pepcid. 11.Levothyroxine. 12. . 13.Vitamin D. Assessment And Plan: 1.End-stage renal disease with over volume, was dialyzed, now back to normal volume. I am going to arrange for his dialysis tomorrow and we will monitor the patient. We will try to challenge the devang ent to establish more better volume control. 2.Respiratory failure, multifactorial secondary to over volume, subglottic stenosis. Follow up with Pulmonary. Continue current treatment. 3.Hypothyroidism, started on levothyroxine. We will follow up with the Primary. 4.Obstructive sleep apnea. Status post tracheostomy. We will follow up with Pulmonary. 5.Anemia of chronic kidney disease. Continue SUMIT. We will hold it, given hemoglobin rise currently up to 11. STEPH/CASSIE Voice ID: [id number] Report ID: [id number]
--- NOTE | 2022-06-07 14:52 | CON ---
Date of Consultation: 06/04/2022 Reason For Consultation: Respiratory difficulty. History of tracheostomy. Chief Complaint: End-stage renal disease, hyperkalemia, pulmonary edema. History Of Present Illness: The patient is a 56-year-old male with a history of end-stage renal disease, on hemodialysis Wednesday, Wednesday, and Wednesday, severe hypothyroidism with questionable compliance, diabetes mellitus type 2, presented to the emergency department for dyspnea and hypoxia. He has been admitted several times prior and he has had a tracheostomy before for supraglottic edema resulting in respiratory distress. This is his third admission and he was hypoxic, and I was consulted for further evaluation. Upon arrival to bedside, the patient is sitting upright and eating a large meal and having no difficulty in swallowing or breathing. As I was observing, he did not have any regurgitation of food, coughing, choking and was able to swallow quite well. He did not appear to be hypoxic to me or in any acute distress. He does speak some Bulgarian and we were able to communicate quite well. Currently, he states that he has a lot of mucus production, which is clear and he feels that his throat is swollen, but he states he is able to breathe and swallow adequately. Past Medical History: Diabetes. hypertension, severe hypothyroidism, dyslipidemia, end-stage renal disease, hypoxic hypercapnic respiratory failure, trach with recent decannulation. Home Medications: Amlodipine Besylate, docusate sodium, ergocalciferol, gabapentin, hydrocodone/acetaminophen, levothyroxine sodium, sennosides, sevelamer carbonate, Sitagliptin phosphate, trazodone, prednisone. Allergies: NO KNOWN DRUG ALLERGIES. Social History: Denies smoking, alcohol, or illicit drugs. Review of Systems: Head: Denies head trauma or headache. Eyes: Denies drainage, double or blurry vision. Ears: Denies otorrhea, otalgia, hearing loss. Nose: Positive for rhinorrhea and nasal congestion. Negative for epistaxis. Oral Cavity: Positive for throat swelling. Negative for dysphagia, odynophagia. Respiratory: Positive for mild intermittent shortness of breath, but not in respiratory distress. Physical Examination: Vital Signs: Stable. General: The patient is awake, alert, oriented, and he is on room air and pulse ox is 98%. Head: Atraumatic, normocephalic. Eyes: PERRLA/EOMI. Ears: Deferred. Nose: Bilateral pale/blue intranasal mucosa. Septum is midline. Turbinate hypertrophy is mild. Oral Cavity: Soft palate redundancy with Hood soft palate 2/3. Uvula is midline. No evidence of swelling. The patient has large base of tongue. After obtaining verbal consent, the patient was placed into a sniffing position. I was able to easily advance the scope into the right nasal cavity back to the level of the base of tongue. The patient has a large base of tongue, but once I was able to get him to sniff, I was able to advance the scope back to the supraglottic area. The patient has redundant supraglottic tissue and compared with my last scope, this is much improved. The patient has floppy redundant mucosa, but upon phonation, the patient was able to adequately phonate and he has a widely patent airway. The scope was withdrawn, the patient tolerated well. CT scan of soft tissue neck with contrast examined: appears that patient has airway obstruction but I believe that supraglottic tissue collapses when supine-- direct visualization while patient is upright shows patent airway. Assessment: 1. Suspected allergic angioedema, which is what I gathered from him by last exam and appears improved today. Unsure if he has been on H1 and H2 blockers outpatient but appears to be improving. I would keep him on H1 and H2 blockers outpatient and consider food and inhalant allergy testing when he is able to be discharged. No tracheostomy tube is needed. The patient should sleep with his head elevated. 2. Severe hypothyroidism. Continue current medication, levothyroxine sodium and obtain recent TSH so that dosage can be adjusted. 3. Obstructive sleep apnea. Continue nightly BiPAP or CPAP. The patient may benefit from hypoglossal nerve stimulator considering that his base of tongue is rather large and it may be collapsing into his airway causing difficulty breathing. We will discuss in the outpatient setting. Thank you for this most interesting consultation. CIELO/CASSIE Voice ID: [id number] Report ID: [id number] EFREN
[2022-06-07] MEDS: BENZONATATE 100 MG CAP PO PRN (20:45)
[2022-06-07] MEDS: GABAPENTIN 100 MG CAP PO SCH (20:45)
[2022-06-07] MEDS: TRAZODONE 50 MG TABLET PO SCH (20:46)
[2022-06-08 02:05] VITALS: BMI 29.5
[2022-06-08 04:14] LABS: Albumin 3.9 g/dL (3.4-5.0); Magnesium 2.6 mg/dL (1.6-2.4); Phosphorus 8.4 mg/dL (2.5-4.9); Potassium 5.4 mmol/L (3.5-5.1)
[2022-06-08] MEDS: LEVOTHYROXINE SODIUM 100 MCG VIAL IV SCH (05:35)
[2022-06-08] MEDS: INSULIN -REGULAR HUMAN 50 UNIT/0.5 ML ML SQ SCH ×4 (07:30→21:12)
[2022-06-08] MEDS: AMLODIPINE 10 MG TAB PO SCH (09:00)
[2022-06-08] MEDS: DOCUSATE NA 100 MG CAP PO SCH (10:22)
[2022-06-08] MEDS: FLUTICASONE 50MCG NASAL SPRAY NAS SCH ×2 (10:22→21:00)
[2022-06-08] MEDS: SEVELAMER CARBONATE 800 MG TABLET PO SCH ×3 (10:22→17:19)
[2022-06-08] MEDS: SENOSIDES 8.6 MG TAB PO SCH (10:23)
[2022-06-08] MEDS: GUAIFENESIN 600 MG SA TAB PO SCH ×2 (10:23→21:12)
[2022-06-08] MEDS: FAMOTIDINE 20 MG TAB PO SCH (10:23)
[2022-06-08] MEDS: FOLIC ACID 1 MG TABLET PO SCH (10:23)
[2022-06-08] MEDS: HEPARIN 5000 UNIT/ML 1 ML VIAL SQ SCH ×2 (10:24→21:12)
[2022-06-08] MEDS: CETIRIZINE HCL 5 MG TABLET PO SCH (10:24)
[2022-06-08 12:55] LABS: Blood Gas Oxyhemoglobin 89.1 % (94-97)
[2022-06-08] MEDS: GABAPENTIN 100 MG CAP PO SCH (21:11)
[2022-06-08] MEDS: TRAZODONE 50 MG TABLET PO SCH (21:11)
--- NOTE | 2022-06-08 23:32 | P.PN ---
Date of Service: 06/08/22 Subjective: still with complaints of sore throat / weak voice obtunded this morning, pt only awake for a few seconds, falls asleep mid sentence rapid response called, ABG ordered, has been refusing bipap apparently took some home norco he had at bedside ROS: A complete review of systems was performed and is negative except as mentioned above Physical Exam: Gen: NAD, AOx3 HEENT: normal conjunctiva, sclera anicteric. swelling in lower face/neck CV: regular rate & rhythm, trace- 1+ b/l lower extremity edema, IV/ systolic murmur Pulm: non-labored respirations on room air, transmitted upper airway noises, diminished bilaterally, +cough Abd: soft, non-tender, non-distended Neuro: normal affect, moves all extremities, weak voice vitals reviewed Problem List acute on chronic hypoxemic respiratoy failure secondary to volume overload ESRD on HD Hyperkalemia with ekg changes NIDDM2 supraglottic swelling / narrowing Hypothyroidism s/p urgent HD on 06/01 AM and ongoing HD s/p kayexalate and HD Nephrology consulted electrolyte abnormalities improving continue to monitor labs wean O2 as tolerated; patient on ~3 L NC chronically at home insulin sliding scale h/o severe hypothyroidism, continue synthroid last levels checked 05/12/22 recheck with increased TSH to 90s concern for myxedema, significant hypothyroidism start IV levothyroxine 2/3 dc on 150mcg synthroid, up from home 75mcg stridor on exam pulm ordered CT to eval, pt with h/o swelling / narrowinig noted moderate-significant supraglottic narrowing ENT consulted - pt previously required tracheostomy for this issue, which has since been removed suspect allergy; steroids, added h1/h2 [facility] evaluated patient, scoped on 06/04, reported looks better; seems to be position dependent; ok when sitting up but obstructive when laying flat scoped again 06/08; felt to be worsening increase steroids speech therapy consulted VTE: heparin SQ Code: full Dispo: home, ~1-2 days, needs iv levothyroxine for now dc home with 150mcg synthroid
[2022-06-09 04:00] LABS: Hematocrit 34.6 % (39.6-49.0); Lymphocytes % 10.4 % (15.3-44.8); MCV 98.3 fL (80-100); MPV 7.7 fL (7.6-11.3); RBC Red Blood Cell Count 3.52 M/uL (4.33-5.43)
[2022-06-09 04:16] LABS: Albumin 4.2 g/dL (3.4-5.0); Bilirubin Total 0.7 mg/dL (0.2-1.0); Magnesium 2.6 mg/dL (1.6-2.4); Potassium 4.2 mmol/L (3.5-5.1); Protein, Total 8.4 g/dL (6.4-8.2)
[2022-06-09 04:42] LABS: Blood Morphology Comment NOT SEEN (NOT SEEN); Platelet Estimate ADEQ
[2022-06-09] MEDS: LEVOTHYROXINE SODIUM 100 MCG VIAL IV SCH (05:29)
--- NOTE | 2022-06-09 06:32 | PN ---
Date of Progress Note: 06/08/2022 Chief Complaint: End-stage renal disease, chronic respiratory failure, history of tracheostomy, hypo thyroidism, noncompliance with p.o. fluid restriction and medication. He has history of noncomplianc e with his dialysis schedule as well. He was found to have hyperkalemia today, severe fluid overload , shortness of breath. He became lethargic, though he was arousable and was able to answer some ques tion. Review of Systems: Patient denies chest pain, palpitation. He complains of generalized weakness. He does not had cough , does not choke when he swallows food. Physical Examination: Lungs: Crackles bilaterally present. Heart: S1 and S2. Abdomen: Obese, soft, nontender. Extremities: Edema present in both legs. Labs: Sodium 130, potassium 5.4, chloride 94, CO2 25, BUN 101, creatinine 12.4, phosphorus 8.4, calc ium 8.2, magnesium 2.6. Impression And Plan: 1.End-stage renal disease. Dialysis is scheduled for today with 2 potassium dialysate to control hy perkalemia. The patient will have ultrafiltration to control fluid overload. Patient has interstiti al pulmonary edema. 2.Plan is to start BiPAP. The patient became lethargic today and monitor ABG and adjust BiPAP accor dingly. 3.Subglottic stenosis, patient will be consulted by the ENT. 4.Anemia, chronic kidney disease. Monitor hemoglobin level. Adjust SUMIT. 5.Hypothyroid. Re-evaluate TSH and advance treatment accordingly. JULEE/NERYL Voice ID: [id number] Report ID: [id number]
--- NOTE | 2022-06-09 06:49 | RAD REPORT ---
EXAM DESCRIPTION: RAD - Chest Single View - 06/09/2022 6:18 am CLINICAL HISTORY: f/u opacities/edema COMPARISON: Portable 06/03/2022 TECHNIQUE: AP portable chest image was obtained 06/09/2022 6:18 am . FINDINGS: Lung volumes remain low. Bibasilar patchy opacification is probably atelectasis but can be monitored. Lung parenchymal pattern is otherwise stable. Cardiomediastinal silhouette is stable, accentuated by portable technique and low lung volume. No paul surable pleural effusion and no pneumothorax. No acute bony abnormality seen. No acute aortic finding s suspected. IMPRESSION: Bibasilar atelectasis. Infiltrate is lesser in likelihood but can be monitored. Exam otherwise stable.
[2022-06-09] MEDS: INSULIN -REGULAR HUMAN 50 UNIT/0.5 ML ML SQ SCH ×4 (07:30→20:47)
[2022-06-09] MEDS: SEVELAMER CARBONATE 800 MG TABLET PO SCH ×3 (08:00→16:07)
[2022-06-09] MEDS: FOLIC ACID 1 MG TABLET PO SCH (09:00)
[2022-06-09] MEDS: GUAIFENESIN 600 MG SA TAB PO SCH ×2 (09:00→20:43)
[2022-06-09] MEDS: FLUTICASONE 50MCG NASAL SPRAY NAS SCH ×2 (09:00→20:46)
[2022-06-09] MEDS: CETIRIZINE HCL 5 MG TABLET PO SCH (09:00)
[2022-06-09] MEDS: SENOSIDES 8.6 MG TAB PO SCH (09:00)
[2022-06-09] MEDS: AMLODIPINE 10 MG TAB PO SCH (09:00)
[2022-06-09] MEDS: FAMOTIDINE 20 MG TAB PO SCH (09:00)
[2022-06-09] MEDS: DOCUSATE NA 100 MG CAP PO SCH (09:00)
[2022-06-09 10:07] LABS: Blood Gas Oxyhemoglobin 88.5 % (94-97); Blood O2 Saturation 89.5 % (92-98.5)
[2022-06-09] MEDS: HEPARIN 5000 UNIT/ML 1 ML VIAL SQ SCH ×2 (10:54→20:44)
--- NOTE | 2022-06-09 11:39 | P.PN ---
Date of Service: 06/08/22 ENT Progress Note Patient seen and examined. He reports worsened throat swelling since yesterday. At times it is difficult for him to breathe; however, he is tolerating food/liquid without regurgitation. Speech is sluggish. No acute respiratory distress and no chest retractions. Flexible laryngoscopy performed: moderate base of tongue enlargement, worsened posterior arytenoid and interarytenoid edema. Blue/moran mucosa. Patent trachea and subglottis. Mild false vocal fold mucosal edema. True vocal cords sharp and with adequate abduction/adduction. Impression: 1. Supraglottic edema-- worsened from previous scope. Suspect food/inhalant/drug related allergy. Many patients have concomitant food/inhalant allergies that can worsen symptoms. 2. Severe hypothyroidism. Plan: 1. Continue or increase dosage of steroids and continue H1/H2 blockers. Will be on standby in case airway worsens. 2. Recommend H1/H2 blockers outpatient. 3. Recommend outpatient f/up-- card given 4. Recommend allergy testing outpatient. 5. If continues to be inpatient, can have lab draw IgE RAST for inhalant food/allergens, if the lab offers this service. Recommend IgE for cow's milk, gluten, wheat, egg white, egg yolk, shellfish, peanuts. For inhalants, recommend IgE levels for cat, dog, bermuda grass, buck grass, and celeste grass, Trees-- Somali Elm, mesquite, cottonwood, josue live oak, Weeds-- ballard's quarter, ragweed, Israeli thistle, D. pteronyssinus, A. fumigatus, and A. alternata. 6. Another option is to go ahead and do an elimination diet for the above- mentioned foods while in hospital 7. Continue IV thyroid medication
--- NOTE | 2022-06-09 12:59 | PN ---
Date of Progress Note: 06/09/2022 Subjective: The patient was admitted with respiratory failure secondary to COPD exacerbation, over v olume. The patient was dialyzed on daily, back to normal volume today. The patient has been altered , found to have hypercapnic respiratory failure. Physical Examination: Vital Signs: Blood pressure 134/64, pulse of 65. Chest: Decreased entry bilateral base with crackles. Heart: S1, S2. Regular. Abdomen: Soft, nontender. Extremity: Plus edema. Neuro: The patient sleepy. Moving 4 extremities. No focality. Poorly responsive. Laboratory Data: Hemoglobin 11.4. Sodium 137, potassium 4.2, bicarb 31, BUN 55, creatinine 8.5, benjy cium 8.6. Current Medications: The patient on include; 1.Cetirizine. 2.Amlodipine 10. 3.Gabapentin 100. 4.Trazodone. 5.Renvela. 6.Folic acid. 7.Pepcid. Assessment And Plan: 1.End-stage renal disease, over volume. I am going to do another session of dialysis today and we w ill follow up the patient. We will challenge the patient. 2.Hypertension. We will utilize blood pressure for more ultrafiltration. 3.Anemia of chronic kidney disease. No need for SUMIT. 4.Hypokalemia. The patient being dialyzed on high potassium bath. Has been resolved, normalized. 5.Hypercapnic respiratory failure. Continue BiPAP. 6.Over volume. We will challenge the patient today. 7.Respiratory failure secondary to hypercapnic and over volume. Continue BiPAP. We will challenge the patient. STEPH/ACSSIE Voice ID: [id number] Report ID: [id number]
[2022-06-09] MEDS: BENZONATATE 100 MG CAP PO PRN ×2 (16:10→20:43)
--- NOTE | 2022-06-09 17:11 | P.PN ---
Subjective Date of Service: 06/09/22 Chief Complaint: Severe hypothyroidism Patient became obtunded this morning and had to be placed on BiPAP. Arterial blood gas shows PCO2 retention. 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 ENT: BIPAP Neck: Supple, engorged neck veins Respiratory: Bilateral crackles/rales Cardiovascular: Regular rate/rhythm, Normal S1 S2, lower extremity edema. Gastrointestinal: Normal bowel sounds, No tenderness Musculoskeletal: No tenderness Integumentary: No rashes Neurological: No focal motor deficit. vitals reviewed Problem List acute on chronic hypoxemic respiratoy failure secondary to volume overload ESRD on HD Hyperkalemia with ekg changes NIDDM2 supraglottic swelling / narrowing Hypothyroidism s/p urgent HD on 06/01 AM and ongoing HD s/p kayexalate for hyperkalemia Nephrology is following. continue to monitor labs DM type II: insulin sliding scale h/o severe hypothyroidism. Patient is getting IV Synthroid concern for myxedema contributing to patient's restrictive airway. dc on 150mcg synthroid, up from home 75mcg stridor on exam pulm ordered CT to eval, pt with h/o swelling / narrowinig noted moderate-significant supraglottic narrowing Seen by ENT. Pt previously required tracheostomy for this issue, which was removed. ENT scoped patient x 2. ENT suspect allergy. Continue steroids, and h1/h2 [facility] also recommend allergy testing as outpatient. scoped again 06/08; felt to be worsening Acute on chronic respiratory failure with hypercapnia BiPAP therapy. Family report patient has been noncompliant with his NIV at home. Family meeting for goals of care discussion planned for today speech therapy is following. VTE: heparin SQ Code: full
[2022-06-09] MEDS: GABAPENTIN 100 MG CAP PO SCH (20:43)
[2022-06-09] MEDS: TRAZODONE 50 MG TABLET PO SCH (20:43)
[2022-06-10] MEDS: LEVOTHYROXINE SODIUM 100 MCG VIAL IV SCH (06:11)
[2022-06-10] MEDS: BENZONATATE 100 MG CAP PO PRN (06:15)
[2022-06-10] MEDS: CETIRIZINE HCL 5 MG TABLET PO SCH (07:49)
[2022-06-10] MEDS: SENOSIDES 8.6 MG TAB PO SCH (07:49)
[2022-06-10] MEDS: DOCUSATE NA 100 MG CAP PO SCH (07:49)
[2022-06-10] MEDS: AMLODIPINE 10 MG TAB PO SCH (07:49)
[2022-06-10] MEDS: SEVELAMER CARBONATE 800 MG TABLET PO SCH ×3 (07:49→17:16)
[2022-06-10] MEDS: FOLIC ACID 1 MG TABLET PO SCH (07:49)
[2022-06-10] MEDS: FAMOTIDINE 20 MG TAB PO SCH (07:49)
[2022-06-10] MEDS: HEPARIN 5000 UNIT/ML 1 ML VIAL SQ SCH ×2 (07:50→21:00)
[2022-06-10] MEDS: INSULIN -REGULAR HUMAN 50 UNIT/0.5 ML ML SQ SCH ×4 (07:50→21:00)
[2022-06-10] MEDS: GUAIFENESIN 600 MG SA TAB PO SCH ×2 (07:50→21:00)
[2022-06-10] MEDS: FLUTICASONE 50MCG NASAL SPRAY NAS SCH ×2 (07:51→21:00)
--- NOTE | 2022-06-10 12:40 | P.PN ---
Subjective Date of Service: 06/10/22 Chief Complaint: Severe hypothyroidism Patient is doing well he is ambulating well to speak more hypoxic hypercapnic respiratory failure Review of Systems is unable to be obtained Physical Examination - Vital Signs Temperature: 98.4 F Blood Pressure: 153/74 Pulse: 74 Respirations: 15 Pulse Ox (%): 91 - Physical Exam General: Alert, Cooperative Respiratory: Clear to auscultation bilaterally Assessment And Plan - Current Problems (Diagnosis) (1) Chronic respiratory failure with hypoxia and hypercapnia Current Visit: Yes Status: Chronic Plan: Patient is 57 years of age has chronic hypoxemia hypercarbia ventilation syndrome he will benefit from a noninvasive ventilation BiPAP reviewed and suitable due to severity of his condition this will prevent rehospitalization's also has underlying severe hypothyroidism he seems to be improving slowly also possibility of obstructive sleep apnea outpatient sleep study vital signs stable can foreign exchange services manager to p.o. levothyroxine discharge planning consider setting up for home O2 Physician Review: Patient Assessed, Agree with Above Assessment and Plan
--- NOTE | 2022-06-10 13:58 | P.PN ---
Subjective Date of Service: 06/10/22 Chief Complaint: Severe hypothyroidism Patient doing much better today. He was seen walking in the hallway, going for coffee. No issues overnight. Physical Examination - Vital Signs Temperature: 98.4 F Blood Pressure: 153/74 Pulse: 74 Respirations: 15 Pulse Ox (%): 91 Assessment And Plan - Current Problems (Diagnosis) (1) Pulmonary edema Current Visit: Yes Status: Acute (2) Acute respiratory failure with hypoxia Current Visit: Yes Status: Acute (3) Hyperkalemia Current Visit: Yes Status: Acute (4) DM type 2 (diabetes mellitus, type 2) Current Visit: Yes Status: Chronic Qualifiers: Diabetes mellitus assistant terminal manager insulin use: without assistant terminal manager use Diabetes mellitus complication status: with hyperglycemia Qualified Code(s): E11.65 - Type 2 diabetes mellitus with hyperglycemia (5) ESRD (end stage renal disease) on dialysis Current Visit: Yes Status: Chronic (6) Hypothyroidism Current Visit: Yes Status: Chronic Qualifiers: Hypothyroidism type: unspecified Qualified Code(s): E03.9 - Hypothyroidism, unspecified - Plan Physical Exam General: Somnolent, not in acute distress. Neck: Supple, engorged neck veins Respiratory: Diminished breath sounds bilaterally, no rales. Cardiovascular: Regular rate/rhythm, Normal S1 S2, lower extremity edema. Gastrointestinal: Normal bowel sounds, No tenderness Musculoskeletal: No tenderness Integumentary: No rashes Neurological: No focal motor deficit. vitals reviewed Problem List acute on chronic hypoxemic respiratoy failure secondary to volume overload ESRD on HD Hyperkalemia with ekg changes NIDDM2 supraglottic swelling / narrowing Hypothyroidism s/p urgent HD on 06/01 AM and ongoing HD s/p kayexalate for hyperkalemia Nephrology is following. Continue routine hemodialysis DM type II: insulin sliding scale h/o severe hypothyroidism. Patient is getting IV Synthroid concern for myxedema contributing to patient's restrictive airway. dc on 150mcg synthroid, up from home 75mcg Inspiratory stridor pt with h/o swelling / narrowinig noted moderate-significant supraglottic narrowing Seen by ENT. Pt previously required tracheostomy for this issue, which was removed. ENT scoped patient x 2. ENT suspect allergy. Continue steroids, and h1/h2 [facility] also recommend allergy testing as outpatient. Patient has no dysphagia and tolerating diet. He has also been tolerating room air. Acute on chronic respiratory failure with hypercapnia/obesity hypoventilation Obstructive sleep apnea is highly likely Patient needs NIV. Brother denies patient has an NIV at home. Patient wants to be full code and wants aggressive treatment. VTE: heparin SQ Code: full Disposition: Home with home health once patient is confirmed to have NIV at home or NIV has been arranged
--- NOTE | 2022-06-10 15:16 | PN ---
Date of Progress Note: 06/10/2022 Subjective: The patient was admitted to the hospital with respiratory failure secondary to over volu me, hypercapnic respiratory failure. The patient had altered mental status yesterday, had to be plac ed back on BiPAP, weaned today. Physical Examination: Vital Signs: When I saw the patient; blood pressure 153/74, pulse of 74, afebrile. Chest: Clear to auscultation. Only faint crackles on the right base. Heart: S1, S2. Systolic murmur. Abdomen: Soft, nontender. Extremity: No edema. Neurologic: Alert. No focality. Laboratory Data: Hemoglobin 11.4. Sodium 137, potassium 4.2, bicarb 31, BUN 55, creatinine 8.5, benjy cium 8.6, phosphorus 8.4. Current Medications: The patient on include; 1.Cetirizine. 2.Albuterol. 3.Amlodipine 10 mg. 4.Gabapentin. 5.Renvela 1600 q.a.c. 6.Pepcid. 7.Zofran. 8.Levothyroxine. 9.Sennoside. 10.Guaifenesin. 11.Vitamin D. Assessment And Plan: 1.End-stage renal disease with over volume. I had long discussion with the patient regarding the ne ed for fluid restriction and the need to continue on his dialysis regularly, compliant with the diet and fluid restriction. I used a director corporate sales from the floor. The patient verbalized understanding. W e will do session of dialysis today and we will challenge the patient. We will do 1 hour sequential, then 2.5 hour of HD to achieve the goal and we will follow up the patient. 2.Hypertension, controlled, optimal. We will utilize blood pressure for more ultrafiltration. 3.Hypercapnic respiratory failure. We will follow up with Pulmonary. 4.Over volume. The patient still has some urine output. I am going to put the patient on Lasix, tr moise to establish more of fluid control and we will follow up the patient. 5.Secondary hyperparathyroidism. Continue Renvela. 6.Anemia of chronic kidney disease. No need for SUMIT for the time being. We will follow up. JESUS Voice ID: [id number] Report ID: [id number]
[2022-06-10] MEDS: FUROSEMIDE 40 MG/4 ML VIAL IV SCH (17:16)
[2022-06-10] MEDS: TRAZODONE 50 MG TABLET PO SCH (21:00)
[2022-06-10] MEDS: GABAPENTIN 100 MG CAP PO SCH (21:00)
[2022-06-11 03:43] LABS: Absolute Lymphocytes (CBC) 1.1 K/uL (0.7-4.9); Hematocrit 30.2 % (39.6-49.0); Lymphocytes % 13.4 % (15.3-44.8); MCV 98.7 fL (80-100); MPV 7.4 fL (7.6-11.3); RBC Red Blood Cell Count 3.06 M/uL (4.33-5.43)
[2022-06-11 04:25] LABS: Potassium 3.9 mmol/L (3.5-5.1)
[2022-06-11] MEDS: LEVOTHYROXINE SODIUM 100 MCG VIAL IV SCH (05:41)
[2022-06-11] MEDS: INSULIN -REGULAR HUMAN 50 UNIT/0.5 ML ML SQ SCH ×3 (07:30→16:08)
[2022-06-11] MEDS: SEVELAMER CARBONATE 800 MG TABLET PO SCH ×2 (08:03→11:03)
[2022-06-11] MEDS: CETIRIZINE HCL 5 MG TABLET PO SCH (08:03)
[2022-06-11] MEDS: GUAIFENESIN 600 MG SA TAB PO SCH (08:04)
[2022-06-11] MEDS: AMLODIPINE 10 MG TAB PO SCH (08:04)
[2022-06-11] MEDS: DOCUSATE NA 100 MG CAP PO SCH (08:04)
[2022-06-11] MEDS: SENOSIDES 8.6 MG TAB PO SCH (08:04)
[2022-06-11] MEDS: FAMOTIDINE 20 MG TAB PO SCH (08:05)
[2022-06-11] MEDS: FOLIC ACID 1 MG TABLET PO SCH (08:05)
[2022-06-11] MEDS: HEPARIN 5000 UNIT/ML 1 ML VIAL SQ SCH (08:05)
[2022-06-11] MEDS: FUROSEMIDE 40 MG/4 ML VIAL IV SCH (08:05)
[2022-06-11] MEDS: FLUTICASONE 50MCG NASAL SPRAY NAS SCH (08:06)
[2022-06-11 09:58] VITALS: O2SAT 96
--- NOTE | 2022-06-11 15:14 | PN ---
Date of Progress Note: 06/11/2022 Subjective: The patient was admitted with over volume, hypercapnic respiratory failure, congestive h eart failure with exacerbation. The patient treated, recovered. The patient had extra dialysis yest erday. Physical Examination: Vital Signs: Blood pressure 139/67, pulse of 67. Chest: Clear to auscultation. Heart: S1, S2. Regular. Abdomen: Soft, nontender. Morbidly obese. Could not appreciate any organomegaly. Extremities: Trace edema. Neurologic: Alert. No focality. Laboratory Data: Hemoglobin 10. Sodium 134, potassium 3.9, bicarb 30, BUN 48, creatinine 7.6, calci um 7.6. Current Medications: The patient on include Tylenol, amlodipine 10 mg, albuterol, gabapentin 100 at bedtime, trazodone, Lasix 80 b.i.d., Renvela, folic acid, Zofran. Assessment And Plan: 1.End-stage renal disease with over volume, poor compliant with fluid restriction, status post daily dialysis, recovered, back to normal volume. We will resume dialysis per schedule. 2.Over volume as above. We will challenge with dialysis, reinforce with the patient for fluid restr iction. 3.Hypokalemia. The patient being dialyzed. 4.Respiratory failure, multifactorial, secondary to over volume and hypercapnic respiratory failure. Continue with Pulmonary. Continue challenging the patient. 5.Hypothyroidism with crisis. Levothyroxine was started. We will follow up with primary. The patient cleared from the Renal standpoint for discharge planning. STEPH/CASSIE Voice ID: [id number] Report ID: [id number]
--- NOTE | 2022-06-11 15:46 | P.DS ---
Admission Date: 05/31/22 Discharge Date: 06/11/22 Disposition: DC HOME/HOME HEALTH CARE Discharge Condition: FAIR Reason for Admission: Severe hypothyroidism - Problems (1) Pulmonary edema Current Visit: Yes Status: Acute (2) Acute respiratory failure with hypoxia Current Visit: Yes Status: Acute (3) Hyperkalemia Current Visit: Yes Status: Acute (4) DM type 2 (diabetes mellitus, type 2) Current Visit: Yes Status: Chronic Qualifiers: Diabetes mellitus residential insulin use: without maritime engineer use Diabetes mellitus complication status: with hyperglycemia Qualified Code(s): E11.65 - Type 2 diabetes mellitus with hyperglycemia (5) ESRD (end stage renal disease) on dialysis Current Visit: Yes Status: Chronic (6) Hypothyroidism Current Visit: Yes Status: Chronic Qualifiers: Hypothyroidism type: unspecified Qualified Code(s): E03.9 - Hypothyroidism, unspecified Brief History of Present Illness: Patient is a 56-year-old male with history of ESRD on HD MWF, hypothyroidism, diabetes mellitus type 2 who presented to the emergency department for dyspnea and hypoxia. He was noted to be saturating 82% on RA and chronically requires 3L NC. He had a potassium of 6.2 with peaked T waves noted on EKG. No chest pain. Chest x-ray showed "Stable appearance of coarse bilateral central predominant interstitial opacities with improved aeration in the left lung base compared to prior exam. Possible mild interstitial edema." He was given 2 grams calcium gluconate, D50, and insulin by emergency provider. Nephrology was contacted and recommended kayexalate and albuterol and dialysis first thing in the morning. Patient was desaturating on nasal cannula and was placed on bipap. He was admitted for further management. Hospital Course: Diagnosis acute on chronic hypoxemic respiratoy failure secondary to volume overload ESRD on HD Hyperkalemia with ekg changes NIDDM2 supraglottic swelling / narrowing Hypothyroidism. Patient admitted to the medical floor and the following medical problems addressed: s/p urgent HD on 130 AM and ongoing routine HD s/p kayexalate for hyperkalemia Nephrology saw and assisted with management. DM type II: Managed with insulin sliding scale h/o severe hypothyroidism. Given patient edematous airway, myxedema was suspected He was treated with IV Synthroid concern for myxedema contributing to patient's restrictive airway. Patient discharged wit 150 mcg synthroid, up from previous home dose of 75mcg Inspiratory stridor pt with h/o subglottic swelling / narrowinig noted moderate-significant supraglottic narrowing on the CT. Seen by ENT. He previously required tracheostomy for this issue, which was removed. ENT scoped patient x 2 during this hospitalization. ENT suspect allergy. Patient treated with steroids, and h1/h2 [facility] also recommend allergy testing as outpatient. Patient has no dysphagia and tolerated diet. He is discharged with BiPAP. Acute on chronic respiratory failure with hypercapnia/obesity hypoventilation Obstructive sleep apnea is highly likely given his body habitus Patient needs NIV. Previous arrangement for NIV fell through. Patient did not follow-up NIV has been arranged for patient to take home. Patient overall has clinically improved. He was seen ambulating in the hallway without shortness of breath. He has tolerated diet. Vitals have been stable. He is deemed stable for discharge. Vital Signs/Physical Exam: Temp Pulse Resp BP Pulse Ox 98.4 F 67 20 139/67 95 06/11/22 11:43 06/11/22 11:43 06/11/22 11:43 06/11/22 11:43 06/11/22 11:43 General: Alert, In no apparent distress, Oriented x3 HEENT: Mucous membr. moist/pink Neck: Supple, JVD not distended Respiratory: Diminished (Bilateral), Other (No rhonchi or rales.) Cardiovascular: Regular rate/rhythm, Normal S1 S2, Edema (Trace bilateral lower extremity edema) Gastrointestinal: Normal bowel sounds, Soft and benign, Non-distended, No tenderness Musculoskeletal: No tenderness Integumentary: No cyanosis Neurological: Normal strength at 5/5 x4 extr Laboratory Data at Discharge: WBC 8.00 K/uL (4.3-10.9) 06/11/22 02:51 Hgb 10.0 g/dL (13.6-17.9) L 06/11/22 02:51 Hct 30.2 % (39.6-49.0) L 06/11/22 02:51 Plt Count 285 K/uL (152-406) 06/11/22 02:51 APTT 46.5 SECONDS (24.3-36.9) H 06/08/22 14:45 Sodium 134 mmol/L (136-145) L 06/11/22 02:51 Potassium 3.9 mmol/L (3.5-5.1) 06/11/22 02:51 BUN 48 mg/dL (7-18) H 06/11/22 02:51 Creatinine 7.65 mg/dL (0.70-1.30) H* 06/11/22 02:51 Glucose 157 mg/dL (74-106) H 06/11/22 02:51 Phosphorus 8.4 mg/dL (2.5-4.9) H 06/08/22 02:22 Magnesium 2.6 mg/dL (1.6-2.4) H 06/09/22 02:45 Total Bilirubin 0.7 mg/dL (0.2-1.0) 06/09/22 02:45 AST 34 U/L (15-37) 06/09/22 02:45 ALT 50 U/L (16-61) 06/09/22 02:45 Alkaline Phosphatase 81 U/L (45-117) 06/09/22 02:45 Home Medications: Hydrocodone/Acetaminophen [Hydrocodone-Acetamin 10-325 mg] 1 tab PO Q6H PRN 06/02/22 Sevelamer Carbonate 1 tab PO TID 06/02/22 Trazodone [Desyrel*] 25 mg PO BEDTIME 06/02/22 Amlodipine Besylate 1 tab PO DAILY #30 tab 06/11/22 Benzonatate [Tessalon Perle*] 100 mg PO TID PRN #30 cap 06/11/22 Cetirizine HCl [Zyrtec*] 10 mg PO DAILY #30 tab 06/11/22 Docusate Sodium 100 mg PO DAILY #30 cap 06/11/22 Ergocalciferol (Vitamin D2) [Vitamin D2] 1 cap PO EVERY 7TH DAY #4 cap 06/11/22 Famotidine [Pepcid*] 20 mg PO DAILY #30 tab 06/11/22 Fluticasone [Flonase 50MCG Nasal [place]*] 2 sprays SERIJO BID #1 btl 06/11/22 Folic Acid 1 mg PO DAILY #30 tab 06/11/22 Gabapentin 100 mg PO BEDTIME #30 cap 06/11/22 Ipratropium/Albuterol Sulfate [Iprat-Albut 0.5-3(2.5) mg/3 ml] 3 ml IH Q6H #120 vial 06/11/22 Levothyroxine Sodium [Levothyroxine] 150 mcg PO DAILY #30 cap 06/11/22 Sennosides [Senna] 1 tab PO BID #60 tab 06/11/22 Sitagliptin Phosphate [Januvia] 1 tab PO DAILY #30 tab 06/11/22 New Medications: Amlodipine Besylate 1 tab PO DAILY #30 tab Docusate Sodium 100 mg PO DAILY #30 cap Fluticasone [Flonase 50MCG Nasal [place]*] 2 sprays SERJIO BID #1 btl Folic Acid 1 mg PO DAILY #30 tab Gabapentin 100 mg PO BEDTIME #30 cap Ipratropium/Albuterol Sulfate [Iprat-Albut 0.5-3(2.5) mg/3 ml] 3 ml IH Q6H #120 vial Sitagliptin Phosphate [Januvia] 1 tab PO DAILY #30 tab Levothyroxine Sodium [Levothyroxine] 150 mcg PO DAILY #30 cap Famotidine [Pepcid*] 20 mg PO DAILY #30 tab Sennosides [Senna] 1 tab PO BID #60 tab Benzonatate [Tessalon Perle*] 100 mg PO TID PRN #30 cap PRN Reason: Cough Ergocalciferol (Vitamin D2) [Vitamin D2] 1 cap PO EVERY 7TH DAY #4 cap Cetirizine HCl [Zyrtec*] 10 mg PO DAILY #30 tab Physician Discharge Instructions: Please wear BiPAP every night. You need to wear oxygen all the time. Please follow-up with ENT Dr. Reich in the office for further evaluation and allergy testing. Diet: ADA Activity: Ad bret Followup: Justice Gonzales MD [ACTIVE - CAN ADMIT] - 1-2 Weeks Mery Reich DO [ACTIVE - CAN ADMIT] - 1 Week Unknown,U [Primary Care Provider] - 1-2 Weeks Time spent managing pt's care (in minutes): 40
[2022-06-11 16:08] VITALS: BP 156/77; TEMP 98.3
== END 2022-06-11 17:25 | disposition home health service (06) | DRG 189 ==
LOC: ER 21:29 → ERHOLD 22:58 → 4TH 23:31
PROVIDERS: ADMIT Internal Medicine; ATTEND Internal Medicine
PROC: 5A1D70Z Performance of Urinary Filtration, Intermittent, Less than 6 Hours Per Day (ICD-10-PCS; 2022-06-01)
PROC: 5A09557 Assistance with Respiratory Ventilation, Greater than 96 Consecutive Hours, Continuous Positive Airway Pressure (ICD-10-PCS; 2022-06-02)
PROC: 5A1D70Z Performance of Urinary Filtration, Intermittent, Less than 6 Hours Per Day (ICD-10-PCS; 2022-06-03)
PROC: 0CJS8ZZ Inspection of Larynx, Via Natural or Artificial Opening Endoscopic (ICD-10-PCS; principal; 2022-06-04)
PROC: 5A1D70Z Performance of Urinary Filtration, Intermittent, Less than 6 Hours Per Day (ICD-10-PCS; 2022-06-04)
PROC: 5A1D70Z Performance of Urinary Filtration, Intermittent, Less than 6 Hours Per Day (ICD-10-PCS; 2022-06-05)
PROC: 5A1D70Z Performance of Urinary Filtration, Intermittent, Less than 6 Hours Per Day (ICD-10-PCS; 2022-06-07)
PROC: 5A1D70Z Performance of Urinary Filtration, Intermittent, Less than 6 Hours Per Day (ICD-10-PCS; 2022-06-08)
DX: J96.21 Acute and chronic respiratory failure with hypoxia (principal); N18.6 End stage renal disease; I12.0 Hypertensive chronic kidney disease with stage 5 chronic kidney disease or end stage renal disease; E66.2 Morbid (severe) obesity with alveolar hypoventilation; N25.81 Secondary hyperparathyroidism of renal origin; J96.22 Acute and chronic respiratory failure with hypercapnia; E11.65 Type 2 diabetes mellitus with hyperglycemia; E11.22 Type 2 diabetes mellitus with diabetic chronic kidney disease; E78.5 Hyperlipidemia, unspecified; E87.5 Hyperkalemia; E87.6 Hypokalemia; E03.9 Hypothyroidism, unspecified; E87.70 Fluid overload, unspecified; D63.1 Anemia in chronic kidney disease; E88.81 Metabolic syndrome and other insulin resistance; J38.4 Edema of larynx; J38.6 Stenosis of larynx; E83.39 Other disorders of phosphorus metabolism; E83.51 Hypocalcemia; Z99.2 Dependence on renal dialysis; Z68.29 Body mass index [BMI] 29.0-29.9, adult; Z20.822 Contact with and (suspected) exposure to COVID-19
CPT/HCPCS: 0241U; 36415; 70490; 71045; 80048; 80053; 80069; 82805; 82947; 83735; 83880; 84100; 84439; 84443; 84484; 85025; 85730; 87070; 87205; 90935; 92610; 93005; 94640; 94660; 94760; 96365; 96375; 99285; J0610; J1644; J1815; J1940; J2250; J2920; J7512; J7613

== ENCOUNTER 2022-06-15 09:59 | Emergency (ER) | payer OTHER ==
--- OUTSIDE RECORDS SUMMARY | 2022-06-15 10:35 | XMS REPORT | Continuity of Care Document ---
:1965 Author Organization [facility] t Address [address] [place] [address] Care Team Providers Name Role Phone Francisco Vincent MD Primary Care Physician [phone] [id number] Attending Clinician Unavailable IRMA NICHOLSON Attending Clinician Unavailable SYLVAIN OLIVARES Attending Clinician Unavailable JOSELUIS FERNANDEZ Attending Clinician Unavailable Doctor Unassigned, [place] Attending Clinician Unavailable JACINTO SIMPSON Attending Clinician Unavailable Stephani Mcginnis Anavella Attending Clinician Unabibi Fall RN, Mami Attending Clinician Unavailable Joseluis Fernandez MD Attending Clinician Gen Ambrocio Attending Clinician Unavailable Radiology Attending Clinician Unavailable RADIOLOGY Attending Clinician Unavailable Maikel GRACE, Shantel Ross Attending Clinician Unavailable SAM RAMIRES Attending Clinician Unavailable Sam Ramires MD Attending Clinician DEAN GARCIA Attending Clinician Unavailable Dean Garcia MD Attending Clinician MARCUS CABALLERO Attending Clinician Unavailable HUNTER GIPSON Attending Clinician Unavailable [id number] Admitting Clinician Unavailable IRMA NICHOLSON Admitting Clinician Unavailable SYLVAIN OLIVARES Admitting Clinician Unavailable FRANCISCO VINCENT Admitting Clinician Unavailable Leo Mcginnis Anav Admitting Clinician Unavailable Payers Payer Name Policy Type Policy Number Effective Date Expiration Date S [facility] MEDICARE A B [id number] 2018 00:00:00 CDC REVIEW [id number] 2019 00:00:00 MEDICAID OF [place] [id number] 2019 00:00:00 WELLMED/UHC DUAL [id number] 2022 COMP HMO D SNP 00:00:00 [place] [id number] 2019 00:00:00 [facility] [id number] MEDICARE PART A [id number] 2018 \T\ B 00:00:00 Problems Condition Condition Condition Status [...] [facility] evaluation evaluation 00:[facility]: Me dical for for 00 Center chronic chronic kidney kidney disease disease Essential Essential Disease Active [facility] hypert[facility] hypertensi 05-23 [facility] on on 00:00: Medical 00 Center Type 2 Type [address] [facility] diabetes diabetes 05-23 [facility] mellitus mellitus 00:00: Medica l with with 00 Center chronic chronic kidney kidney disease on disease on chronic chronic dialysis, dialysis, without without long-term long-term current current use of use of insulin insulin Dizziness Dizziness Disease Active Uni vers 9-10 ity of 00:00: [place] [facility] Pre-syncop Pre-syncop Disease Active U nivers e e 01-08 ity of 00:00: [place] [id number] [facility] Elevated Elevated Disease Active 2017-05 Unive rs troponin I troponin I 05-04 it y of level level 00:00: [place] [address] [facility] Branch Elevated Elevated Disease Active 2017-05 Unive rs brain brain 05-04 ity of natriureti natriureti 00:00[place] c peptide c peptide 00 Medi benjy (BNP) (BNP) Branch level level Essential Essential Disease Active 2017-05 Uni vers hypertensi hypertensi -02 it y of on on 00:00: [place] [address] [facility] Branch Dyslipidem Dyslipidem Disease Active 2017-05 U nivers ia ia 05-04 ity of 00:00: [place] [address] [facility] Branch Hypocalcem Hypocalcem Disease Active 2017-05 U nivers ia ia 05-03 ity of 00:00: [place] [address] Medical Branch Allergies, Adverse Reactions, Alerts Allergy Allergy [...] 13:07: 28 n Propensi Active ty to 7-07 adverse 00:00: reaction 00 to drug NO KNOWN Allergy Active [facility] ALLERGIE [facility] NO KNOWN Drug Active [facility] ALLERGIE Class ity of S [facility] Family History Family Member Diagnosis Comments Start Date Stop Date Source Natural father Alcohol abuse [facility] Natural sister Diabetes [facility] Natural sister Kidney disease [facility] Natural sister No Known Problem [facility] Natural brother No Known Problem [facility] Natural mother No Known Problem [facility] Social History Social Habit Start Date Stop Date Quantity Comments Source History of tobacco Smoker [facility] History SDOH [facility] Alcohol Std Drinks Medica l Center History SDOH [facility] Alcohol Binge Medical [facility] History SDOH [facility] Alcohol Comment Medical C enter Exposure to 2021-11-22 2021-12-02 Not sure [facility] of SARS-CoV-2 (event) 00:00:00 14:04:00 [facility] Alcohol intake 2019-12-17 2019-12-[address] [facility] 00:00:00 00:00:00 non-drinker of Medical Ce nter alcohol (finding) History SDOH 2019-05-23 2019-05-[address] [facility] Alcohol Frequency 00:00:00 00:00:00 [facility] Cigarettes smoked 2019-04-20 2019-04-[address] [facility] current (pack per 00:00:00 00:00:00 Medical Center day) - Reported Cigarette 2019-04-20 2019-04-[address] [facility] pack-years 00:00:00 00:00:00 [facility] Center Tobacco use and 2019-04-20 2019-04-[address] [facility] exposure 00:00:00 00:00:00 [facility] Center Sex Assigned At [address] [facility] 00:00:00 00:00:00 [facility] Center Smoking Status Start Date Stop Date Source Ex-smoker 2018-03-03 00:00:00 2018-03-03 00:00:00 [facility] Medications Ordered Filled Start Stop [...] 2-13 TIMES DAILY 00:00: NEEDED. 00 TAKE 2021-05 No TABLET BY 2-13 MOUTH EVERY 00:00: DAY FOR 10 DAYS TAKE 2021-05 No CAPSULE BY 2-13 MOUTH EVERY [...] EVERY 00:00: DAY FOR 10 DAYS TAKE 2021-05 No CAPSULE BY 2-13 MOUTH EVERY 00:00: DAY 00 Dose 2021-05 No Unknown 2-13 00:00: 00 Dose 2021-05 No Unknown 2-13 00:00: 00 Dose 2021-05 No Unknown 2-13 00:00: 00 Dose 2021-05 No Unknown 2-13 00:00: 00 Dose 2021-05 No Unknown 2-13 00:00: 00 Dose 2021-05 No Unknown 2-13 00:00: 00 Dose 2021-05 No Unknown 2-13 00:00: 00 levothyroxi 0 Yes [id number] 224ug Take 2 Univers ne 112 mcg 8-23 tablets by ity of tablet 00:00: mouth every Medical morning. [place] levothyroxi 2021-0 Yes [id number] 224ug Take 2 Univers ne 112 mcg 8-23 tablets by ity of tablet 00:00: mouth every Medical morning. [place] INSTILL 1 2021-0 No DROP INTO 8-10 [...] 8-08 00:00: 00 Dose 2022-0 No Unknown 808 00:00: 00 Dose 2022-0 No Unknown 808 00:00: 00 ATORVASTATI 2022-0 No N CALCIUM [...] ORAL ROUTE NEEDED FOR 7 DAYS. TIMOLOL 2-0 No MALEATE 8-05 0.25 % SOLN 00:00: 00 INSTILL 1 2021-0 No DROP IN 8-05 BOTH EYES 00:00: EVERY DAY 00 TAKE 1 2-0 No TABLET 8-05 EVERY 6 00:00: HOURS BY 00 ORAL ROUTE NEEDED FOR 7 DAYS. TIMOLOL 2-0 No MALEATE 8-05 0.25 % SOLN 00:00: [...] FOR 7 DAYS. Dose 2-0 No Unknown 7- 00:00: 00 &lt 2022-0 [...] EVERY 00 MORNING &lt 2021-0 No 800 11-24 00:00: 00 Dose 2022-0 [...] 00:00: EVERY DAY 00 &lt 2-0 No 500 11-21 00:00: 00 Dose 2-0 No 80 Unknown 11-21 00:00: 00 &lt 2022-0 No 7- 00:00: 00 &lt 2022-0 No 10 7- 00:00: 00 INSTILL 1 2021-0 No DROP IN 7-22 BOTH EYES 00:00: EVERY DAY 00 &lt 2022-0 No 10 7- 00:00: 00 INSTILL 1 2021-0 No DROP IN 7-22 BOTH EYES 00:00: EVERY DAY 00 &lt 2-0 No 500 - 00:00: 00 Dose 2022-0 No 80 Unknown 11-21 00:00: 00 &lt 2022-0 No 7- 00:00: 00 &lt 2022-0 No 500 7- 00:00: [...] 00:00: EVERY DAY 00 &lt 2-0 No 500 11-21 00:00: 00 Dose 2-0 No 80 Unknown 11-21 00:00: 00 &lt 2022-0 No 7 00:00: 00 &lt 2022-0 No 10 11-21 00:00: 00 INSTILL 1 2021-0 No DROP IN 7-22 BOTH EYES 00:00: EVERY DAY 00 &lt 2-0 No 500 11-21 00:00: 00 Dose 2-0 No 80 Unknown 11-21 00:00: 00 &lt 2022-0 No 7 00:00: 00 &lt 2022-0 No 10 11-21 00:00: 00 INSTILL 1 2021-0 No DROP IN 7-22 BOTH EYES 00:00: EVERY DAY 00 &lt 2022-0 No 500 11-21 00:00: 00 Dose 2-0 No 80 Unknown 11-21 00:00: 00 &lt 2022-0 No 7 00:00: 00 &lt 2022-0 No 10 11-20 00:00: 00 &lt 2022-0 No 10 7 00:00: 00 &lt 2022-0 No 10 7 00:00: 00 &lt 2022-0 No 10 7- 00:00: 00 &lt 2022-0 No 10 7- 00:00: 00 &lt 2022-0 No 10 7-21 00:00: 00 &lt 2022-0 No 10 7-21 00:00: 00 &lt 2022-0 No 10 7-21 00:00: 00 INSTILL 1 2-0 No DROP IN 7-20 BOTH EYES 00:00: EVERY DAY 00 INSTILL 1 2-0 No DROP IN 7-20 BOTH EYES 00:00: EVERY DAY 00 INSTILL 1 2021-0 No DROP IN 7-20 BOTH EYES 00:00: EVERY DAY 00 INSTILL 1 2021-0 No DROP IN 7-20 BOTH EYES 00:00: EVERY DAY 00 INSTILL 1 2021-0 No DROP IN 7-20 BOTH EYES 00:00: EVERY DAY 00 INSTILL 1 2021-0 No DROP IN 7-20 BOTH EYES 00:00: EVERY DAY 00 INSTILL 1 2-0 No DROP IN 7-20 BOTH EYES 00:00: EVERY DAY 00 INSTILL 1 2021-0 No DROP IN [...] 7-19 00:00: 00 &lt 2022-0 No 80 7- 00:00: 00 &lt 2022-0 No 7-19 00:00: 00 &lt 2022-0 No 7-19 00:00: 00 &lt 2022-0 No 80 7- [...] 80 mg 4-07 tablet 00:00: 00 Rian 2-0 No 1mg mg tablet 4- 00:00: [...] Dose 2022-0 No Unknown 4-07 00:00: 00 Rian 25 2-0 No 1mg mg tablet 4-07 00:00: 00 amlodipine 2022-0 No 1mg 10 mg 4-07 tablet 00:00: 00 atorvastati 2022-0 No 1mg n 80 mg 4-07 tablet 00:00: 00 Januvia 25 2-0 No 1mg mg tablet 4 00:00: 00 amlodipine 2022-0 No 1mg 10 [...] Dose 2021-0 No Unknown 2-04 00:00: 00 Januvia 25 [...] 1mg mg tablet 2-04 00:00: 00 levothyroxi 2022-0 No 1mcg ne 200 mcg 2-04 tablet 00:00: 00 levothyroxi 2022-0 No 1mcg ne 25 mcg 2-04 tablet 00:00: 00 UNITHROID 2022-0 Yes 1{tbl} Take 1 Univ ers 25 mcg 2-04 tablet by ity of tablet 00:00: mouth [place] 00 every Medical morning. Branch UNITHROID 202-0 2022- No 1{tbl} Take 1 Uni vers 25 mcg 2-04 08-23 tablet by ity of tablet 00:00: 00:00 mouth [place] 00 :00 every Medical morning. Branch lisinopriL 2021-0 Yes 5mg Take 5 mg Un capri 5 mg tablet 1-07 by mouth ity of 00:00: daily. [address] lisinopriL 2021-0 Yes 5mg Take 5 mg Un capri 5 mg tablet 1-07 by mouth ity of 00:00: daily. [address] lisinopriL 2021-0 Yes 5mg Take 5 mg Un capri 5 mg tablet 1-07 by mouth ity of 00:00: daily. [address] amlodipine 2020- No 1mg 10 mg 2-30 tablet 00:00: 00 amlodipine 2020-1 No 1mg 10 mg 2-30 tablet 00:00: 00 amlodipine 2020- No 1mg 10 mg 2-30 tablet 00:00: 00 Dose 2020-1 No Unknown 2-30 00:00: 00 Dose 2020- No Unknown 2-30 00:00: 00 amlodipine 2020-1 No 1mg 10 mg 2-30 tablet 00:00: 00 amlodipine 2020- No 1mg 10 mg 2-30 tablet 00:00: 00 amlodipine 2020- No 1mg 10 mg 2-30 tablet 00:00: 00 lidocaine 4 2020- No [...] 10 mg 2-02 tablet 00:00: 00 benzonatate 2021-1 No 1mg 200 mg 1-09 capsule 00:00: [...] 00:00: tablet 00 Dose 2021-0 No Unknown 6- 00:00: 00 fenofibrate 2021-0 No 1mg nanocrystal 6-07 lized 145 00:00: mg tablet 00 Dose 1-0 No Unknown 6- 00:00: 00 Dose 2021-0 No Unknown 6- 00:00: 00 Dose 2021-0 No Unknown 6- 00:00: 00 fenofibrate 2021-0 No 1mg nanocrystal 6-07 lized 145 00:00: mg tablet 00 Dose 1-0 No Unknown 6- 00:00: 00 Dose 2021-0 No Unknown 6- 00:00: 00 Dose 1-0 No Unknown 6- 00:00: 00 fenofibrate 1-0 No 1mg nanocrystal [...] 10 mg 4-12 tablet 00:00: 00 fenofibrate 1-0 No 1mg nanocrystal 4-12 lized 145 00:00: mg tablet 00 benzonatate 1-0 No 1mg 200 mg 2-02 [...] 10 MG 17:30: nightly. Medical tablet 21 [place] calcium 2020-0 Yes 3{tbl} Q.[id number] Take [address] [facility] [address] carbonate 8-15 [id number] tablets by [facility] (TUMS) 500 17:30: 3D mouth 3 Medi benjy mg chewable 21 (three) Cente r tablet times daily. furosemide 2020-0 Yes 20mg QD Take [address] (LASIX) 20 8-15 by mouth [facility] MG tablet 17:30: daily. Medica l 21 Center lovastatin 2020-0 Yes 10mg QD Take [address] (MEVACOR) 8-15 by mouth [facility] 10 MG 17:30: nightly. Medical tablet 21 Center calcium 2020-0 Yes 3{tbl} Q.[id number] Take [address] carbonate 8-15 [id number] tablets by [facility] (TUMS) 500 17:30: 3D mouth 3 Medi benjy mg chewable 21 (three) Cente r tablet times daily. furosemide 2020-0 Yes 20mg QD Take [address] (LASIX) 20 8-15 by mouth [facility] MG tablet 17:30: daily. [facility] [address] lovastatin 2020-0 Yes 10mg QD Take [address] (MEVACOR) 8-15 by mouth [facility] 10 MG 17:30: nightly. Medical tablet [address] [place] [address] calcium 2020-0 Yes 3{tbl} Q.[id number] Take [address] carbonate 8-15 [id number] tablets by [facility] (TUMS) 500 17:30: 3D mouth 3 Medi benjy mg chewable 21 (three) Cente r tablet times daily. furosemide 2020-0 Yes 20mg QD Take [address] (LASIX) 20 8-15 by mouth [facility] MG tablet 17:30: daily. [facility] [address] lovastatin 2020-0 Yes 10mg QD Take [address] (MEVACOR) 8-15 by mouth [facility] 10 MG 17:30: nightly. Medical tablet [address] [place] [address] calcium 2020-0 Yes 3{tbl} Q.[id number] Take [address] carbonate 8-15 [id number] tablets by [facility] (TUMS) 500 17:30: 3D mouth 3 Medi benjy mg chewable 21 (three) Cente r tablet times daily. furosemide 2020-0 Yes 20mg QD Take [address] (LASIX) 20 8-15 by mouth [facility] MG tablet 17:30: daily. [address] lovastatin 2020-0 Yes 10mg QD Take [address] (MEVACOR) 8-15 by mouth [facility] 10 MG 17:30: nightly. Medical tablet [address] [place] [address] calcium 2020-0 Yes 3{tbl} Q.[id number] Take [address] carbonate 8-15 [id number] tablets by [facility] (TUMS) 500 17:30: 3D mouth 3 Medi benjy mg chewable 21 (three) Cente r tablet times daily. furosemide 2020-0 Yes 20mg QD Take [address] (LASIX) 20 8-15 by mouth [facility] MG tablet 17:30: daily. [address] lovastatin 2020-0 Yes 10mg QD Take [address] (MEVACOR) 8-15 by mouth [facility] 10 MG 17:30: nightly. Medical tablet [address] [place] [address] calcium 2020-0 Yes 3{tbl} Q.[id number] Take [address] carbonate 8-15 [id number] tablets by [employer] ([employer]) 500 17:30: 3D mouth 3 Medi benjy mg chewable 21 (three) Cente r tablet times daily. furosemide 2020-0 Yes 20mg QD Take [address] (LASIX) 20 8-15 by mouth [facility] MG tablet 17:30: daily. [address] lovastatin 2020-0 Yes 10mg QD Take [address] (MEVACOR) 8-15 by mouth [facility] 10 MG 17:30: nightly. Medical tablet [address] [place] [address] calcium 2020-0 Yes 3{tbl} Q.[id number] Take [address] carbonate 8-15 [id number] tablets by [facility] (SignStorey) 500 17:30: 3D mouth 3 Medi benjy mg chewable 21 (three) Cente r tablet times daily. furosemide 2020-0 Yes 20mg QD Take [address] (LASIX) 20 8-15 by mouth [facility] MG tablet 17:30: daily. [address] lovastatin 2020-0 Yes 10mg QD Take [address] (MEVACOR) 8-15 by mouth [facility] 10 MG 17:30: nightly. Medical tablet [address] [place] [address] calcium 2020-0 Yes 3{tbl} Q.[id number] Take [address] carbonate 8-15 [id number] tablets by [facility] (Sign[employer]) 500 17:30: 3D mouth 3 Medi benjy mg chewable 21 (three) Cente r tablet times daily. furosemide 2020-0 Yes 20mg QD Take [address] (LASIX) 20 8-15 by mouth [facility] MG tablet 17:30: daily. [address] lovastatin 2020-0 Yes 10mg QD Take [address] (MEVACOR) 8-15 by mouth [facility] 10 MG 17:30: nightly. Medical tablet [address] [place] [address] calcium 2020-0 Yes 3{tbl} Q.[id number] Take [address] carbonate 8-15 [id number] tablets by [facility] ([employer]) 500 17:30: 3D mouth 3 Medi benjy mg chewable 21 (three) Cente r tablet times daily. furosemide 2020-0 Yes 20mg QD Take [address] (LASIX) 20 8-15 by mouth [facility] MG tablet 17:30: daily. [address] lovastatin 2020-0 Yes 10mg QD Take [address] (MEVACOR) 8-15 by mouth [facility] 10 MG 17:30: nightly. Medical tablet 21 [place] calcium 2020-0 Yes 3{tbl} Q.[id number] Take [address] carbonate 8-15 [id number] tablets by [facility] (TUMS) 500 17:30: 3D mouth 3 Medi benjy mg chewable 21 (three) Cente r tablet times daily. furosemide 2020-0 Yes 20mg QD Take [address] (LASIX) 20 8-15 by mouth [facility] MG tablet 17:30: daily. Medica l 21 [place] lovastatin 2020-0 Yes 10mg QD Take [address] (MEVACOR) 8-15 by mouth [facility] 10 MG 17:30: nightly. Medical tablet 21 [place] calcium 2020-0 Yes 3{tbl} Q.[id number] Take [address] carbonate 8-15 [id number] tablets by [facility] (TUMS) 500 17:30: 3D mouth 3 Medi benjy mg chewable 21 (three) Cente r tablet times daily. furosemide 2020-0 Yes 20mg QD Take [address] (LASIX) 20 8-15 by mouth [facility] MG tablet 17:30: daily. Medica l 21 [place] lovastatin 2020-0 Yes 10mg QD Take [address] (MEVACOR) 8-15 by mouth [facility] 10 MG 17:30: nightly. Medical tablet 21 [place] calcium 2020-0 Yes 3{tbl} Q.[id number] Take [address] carbonate 8-15 [id number] tablets by [facility] (TUMS) 500 17:30: 3D mouth 3 Medi benjy mg chewable 21 (three) Cente r tablet times daily. furosemide 2020-0 Yes 20mg QD Take [address] (LASIX) 20 8-15 by mouth [facility] MG tablet 17:30: daily. Medica l [address] [place] [address] lovastatin 2020-0 Yes 10mg QD Take [address] (MEVACOR) 8-15 by mouth [facility] 10 MG 17:30: nightly. Medical tablet 21 [place] calcium 2020-0 Yes 3{tbl} Q.[id number] Take [address] carbonate 8-15 [id number] tablets by [facility] (TUMS) 500 17:30: 3D mouth 3 Medi benjy mg chewable 21 (three) Cente r tablet times daily. furosemide 2020-0 Yes 20mg QD Take [address] (LASIX) 20 8-15 by mouth [facility] MG tablet 17:30: daily. Medica l 21 [place] lovastatin 2020-0 Yes 10mg QD Take [address] (MEVACOR) 8-15 by mouth [facility] 10 MG 17:30: nightly. Medical tablet 21 [place] calcium 2020-0 Yes 3{tbl} Q.[id number] Take [address] carbonate 8-15 [id number] tablets by [facility] (TUMS) 500 17:30: 3D mouth 3 Medi benjy mg chewable 21 (three) Cente r tablet times daily. furosemide 2020-0 Yes 20mg QD Take [address] (LASIX) 20 8-15 by mouth [facility] MG tablet 17:30: daily. [facility] 21 [place] lovastatin 2020-0 Yes 10mg QD Take [address] (MEVACOR) 8-15 by mouth [facility] 10 MG 17:30: nightly. Medical tablet 21 [place] calcium 2020-0 Yes 3{tbl} Q.[id number] Take [address] carbonate 8-15 [id number] tablets by [facility] (TUMS) 500 17:30: 3D mouth 3 Medi benjy mg chewable 21 (three) Cente r tablet times daily. furosemide 2020-0 Yes 20mg QD Take [address] (LASIX) 20 8-15 by mouth [facility] MG tablet 17:30: daily. [facility] 21 [place] cyclobenzap 2020-0 Yes 1{tbl} QD Take [address] rine 8-04 tablet by [facility] (FLEXERIL) 00:00: mouth Medica l 10 MG 00 daily. [place] tablet cyclobenzap 2020-0 Yes 1{tbl} QD Take [address] rine 8-04 tablet by [facility] (FLEXERIL) 00:00: mouth Medica l 10 MG 00 daily. [place] tablet cyclobenzap 2020-0 Yes 1{tbl} QD Take [address] rine 8-04 tablet by [facility] (FLEXERIL) 00:00: mouth Medica l 10 MG 00 daily. [place] tablet cyclobenzap 2020-0 Yes 1{tbl} QD Take [...] 10 mg 5-15 tablet 00:00: 00 amlodipine 2019-0 No 1mg 10 mg 5-15 tablet 00:00: 00 atorvastati 2019-0 Yes 1{tbl} QD Take [address] [facility] (LIPITOR) 5-15 tablet by Sheng es 10 MG 00:00: mouth Medical tablet 00 daily. [place] atorvastati 2019-0 Yes 1{tbl} QD Take [address] [facility] (LIPITOR) 5-15 tablet by [facility]heng es 10 MG 00:00: mouth Medical tablet 00 daily. [place] atorvastati 0 Yes 1{tbl} QD Take [address] n (LIPITOR) 5-15 tablet by Sheng es 10 MG 00:00: mouth Medical tablet 00 daily. [place] atorvastati Yes 1{tbl} QD Take [address] n (LIPITOR) 5-15 tablet by Sheng es 10 MG 00:00: mouth Medical tablet 00 daily. [place] atorvastati Yes 1{tbl} QD Take [address] n (LIPITOR) 5-15 tablet by [facility]heng [facility] 10 MG 00:00: mouth Medical tablet 00 daily. [place] atorvastati Yes 1{tbl} QD Take [address] n (LIPITOR) 5-15 tablet by [facility]heng [facility] 10 MG 00:00: mouth Medical tablet 00 daily. [place] atorvastati Yes 1{tbl} QD Take [address] n (LIPITOR) 5-15 tablet by [facility]heng [facility] 10 MG 00:00: mouth Medical tablet 00 daily. [place] atorvastati Yes 1{tbl} QD Take [address] n (LIPITOR) 5-15 tablet by [facility] 10 MG 00:00: mouth Medical tablet 00 daily. [place] atorvastati Yes 1{tbl} QD Take [address] n (LIPITOR) 5-15 tablet by Sheng es 10 MG 00:00: mouth Medical tablet 00 daily. [place] atorvastati Yes 1{tbl} QD Take [address] n (LIPITOR) 5-15 tablet by [facility]heng es 10 MG 00:00: mouth Medical tablet 00 daily. [place] atorvastati Yes 1{tbl} QD Take [address] n (LIPITOR) 5-15 tablet by [facility]heng [facility] 10 MG 00:00: mouth Medical tablet 00 daily. [place] atorvastati 2020-0 Yes 1{tbl} QD Take [address] n (LIPITOR) 5-15 tablet by Sheng es 10 MG 00:00: mouth Medical tablet 00 daily. [place] atorvastati 2020-0 Yes 1{tbl} QD Take [address] n (LIPITOR) 5-15 tablet by [facility] 10 MG 00:00: mouth Medical tablet 00 daily. [place] atorvastati 2020-0 Yes 1{tbl} QD Take [address] n (LIPITOR) 5-15 tablet by Sheng [facility] 10 MG 00:00: mouth Medical tablet 00 daily. [place] atorvastati 2020-0 Yes 1{tbl} QD Take [address] n (LIPITOR) 5-15 tablet by [facility]heng [facility] 10 MG 00:00: mouth Medical tablet 00 daily. [place] aspirin 81 2020-0 No 1mg mg 3-04 [...] MG 00:00: daily . Medical tablet 00 [place] amLODIPine 2020-0 Yes 10mg QD Take [address] (NORVASC) 1-16 by mouth [facility] 10 MG 00:00: daily . Medical tablet 00 [place] amLODIPine 2020-0 Yes 10mg QD Take [address] (NORVASC) 1-16 by mouth [facility] 10 MG 00:00: daily . Medical tablet 00 [place] amLODIPine 2020-0 Yes 10mg QD Take [address] (NORVASC) 1-16 by mouth [facility] 10 MG 00:00: daily . Medical tablet 00 [place] amLODIPine 2020-0 Yes 10mg QD Take [address] (NORVASC) 1-16 by mouth [facility] 10 MG 00:00: daily . Medical tablet 00 [place] amLODIPine 2020-0 Yes 10mg QD Take [address] (NORVASC) 1-16 by mouth [facility] 10 MG 00:00: daily . Medical tablet 00 [place] amLODIPine 2020-0 Yes 10mg QD Take [address] (NORVASC) 1-16 by mouth [facility] 10 MG 00:00: daily . Medical tablet 00 [place] amLODIPine 2020-0 Yes 10mg QD Take [address] (NORVASC) 1-16 by mouth [facility] 10 MG 00:00: daily . Medical tablet 00 [place] amLODIPine 2020-0 Yes 10mg QD Take [address] (NORVASC) 1-16 by mouth [facility] 10 MG 00:00: daily . Medical tablet 00 [place] amLODIPine 2020-0 Yes 10mg QD Take [address] (NORVASC) 1-16 by mouth [facility] 10 MG 00:00: daily . Medical tablet 00 [place] amLODIPine 2020-0 Yes 10mg QD Take [address] (NORVASC) 1-16 by mouth [facility] 10 MG 00:00: daily . Medical tablet 00 [place] amLODIPine 2020-0 Yes 10mg QD Take [address] (NORVASC) 1-16 by mouth [facility] 10 MG 00:00: daily . Medical tablet 00 [place] amLODIPine 2020-0 Yes 10mg QD Take [address] (NORVASC) 1-16 by mouth [facility] 10 MG 00:00: daily . Medical tablet 00 [place] amLODIPine 2020-0 Yes 10mg QD Take [address] (NORVASC) 1-16 by mouth [facility] 10 MG 00:00: daily . Medical tablet 00 [place] amLODIPine 2020-0 Yes 10mg QD Take [address] (NORVASC) 1-16 by mouth [facility] 10 MG 00:00: daily . Medical tablet 00 [place] sevelamer 2020-0 Yes 800mg Q.[id number] [address] [facility] [address] (RENVELA) 1-10 [id number] (three) L ukes 800 mg 00:00: 3D times Medical tablet 00 daily . [place] UNITHROID 2020-0 Yes 125ug QD Take [address] 125 mcg 1-10 mcg by [facility] tablet 00:00: mouth Medical 00 nightly . [place] sevelamer 2020-0 Yes 800mg Q.[id number] [address] [facility] [address] (RENVELA) 1-10 [id number] (three) L ukes 800 mg 00:00: 3D times Medical tablet 00 daily . [place] UNITHROID 2020-0 Yes 125ug QD Take [address] 125 mcg 1-10 mcg by [facility] tablet 00:00: mouth Medical 00 nightly . [place] sevelamer 2020-0 Yes 800mg Q.[id number] [address] [facility] [address] (RENVELA) 1-10 [id number] (three) L ukes 800 mg 00:00: 3D times Medical tablet 00 daily . [place] UNITHROID 2020-0 Yes 125ug QD Take [address] 125 mcg 1-10 mcg by [facility] tablet 00:00: mouth Medical 00 nightly . [place] sevelamer 2020-0 Yes 800mg Q.[id number] [address] [address] (RENVELA) 1-10 [id number] (three) L ukes 800 mg 00:00: 3D times Medical tablet 00 daily . [place] UNITHROID 2020-0 Yes 125ug QD Take [address] 125 mcg 1-10 mcg by [facility] tablet 00:00: mouth Medical 00 nightly . [place] sevelamer 2020-0 Yes 800mg Q.[id number] [address] [facility] [address] (RENVELA) 1-10 [id number] (three) L ukes 800 mg 00:00: 3D times Medical tablet 00 daily . [place] UNITHROID 2020-0 Yes 125ug QD Take [address] 125 mcg 1-10 mcg by [facility] tablet 00:00: mouth Medical 00 nightly . [place] sevelamer 2020-0 Yes 800mg Q.[id number] [address] [facility] [address] ([place]ENV[place]) 1-10 [id number] (three) L ukes 800 mg 00:00: 3D times Medical tablet 00 daily . [place] UNITHROID 2020-0 Yes 125ug QD Take [address] 125 mcg 1-10 mcg by [facility] tablet 00:00: mouth Medical 00 nightly . [place] sevelamer 2020-0 Yes 800mg Q.[id number] [address] [facility] [address] ([place]ENVELA) 1-10 [id number] (three) L ukes 800 mg 00:00: 3D times Medical tablet 00 daily . [place] UNITHROID 2020-0 Yes 125ug QD Take [address] [facility] 125 mcg 1-10 [facility]cg [facility] 00:[facility]: mouth [facility] 00 nightly . [place] sevelamer 2020-0 Yes 800mg [id number] [address] [facility] ([place]) 1-10 [id number] (three) L ukes 800 mg 00:00: 3D times Medical tablet 00 daily . [place] UNITHROID 2020-0 Yes 125ug QD Take [address] [facility] 125 mcg 1-10 [facility] tablet 00:00: mouth Medical 00 nightly . [place] sevelamer 2020-0 Yes 800mg [id number] [address] [facility] ([place]) 1-10 [id number] (three) [facility] 800 mg 00:00: 3D times Medical tablet 00 daily . [place] UNITHROID 2020-0 Yes 125ug QD Take [address] [facility] 125 mcg 1-10 [facility]cg [facility] mouth [facility] 00 nightly . [place] sevelamer 2020-0 Yes 800mg [id number] [address] [facility] ([place]) 1-10 [id number] (three) [facility] 800 mg 00:00: 3D times Medical tablet 00 daily . Center UNITHROID 2020-0 Yes 125ug QD Take [address] [facility] 125 mcg 1-10 mcg [facility] tablet 00:00: mouth Medical 00 nightly . [place] sevelamer 2020-0 Yes 800mg [id number] [address] [facility] ([place]) 1-10 [id number] (three) [facility] 800 mg 00:00: 3D times Medical tablet 00 daily . [place] UNITHROID 2020-0 Yes 125ug QD Take [address] [facility] 125 mcg 1-10 mcg [facility] 00:[facility]: mouth Medical 00 nightly . [place] sevelamer 2020-0 Yes 800mg [id number] [address] [facility] ([place]) 1-10 [id number] (three) [facility] 800 mg 00:00: 3D times Medical tablet 00 daily . [place] UNITHROID 2020-0 Yes 125ug QD Take [address] [facility] [address] 125 mcg 1-10 mcg [facility] 00:00: mouth Medical 00 nightly . [place] sevelamer 2020-0 Yes 800mg [id number] [address] [facility] ([place]) 1-10 [id number] (three) [facility] 800 mg 00:00: 3D times Medical tablet 00 daily . [place] UNITHROID 2020-0 Yes 125ug QD Take [address] [facility] 125 mcg 1-10 mcg [facility] 00:00: mouth Medical 00 nightly . [place] sevelamer 2020-0 Yes 800mg [id number] [address] [facility] ([place]) 1-10 [id number] (three) [facility] 800 mg 00:00: 3D times Medical tablet 00 daily . [place] UNITHROID 2020-0 Yes 125ug QD Take [address] [facility] 125 mcg 1-10 mcg [facility] tablet 00:00: mouth Medical 00 nightly . [place] aspirin 81 2020-0 No 1mg mg 1-10 [...] tablet 00:00: 00 sevelamer 2020-0 Yes 800mg [id number] [address] [facility] ([place]) 1-10 [id number] (three) [facility] 800 mg 00:00: 3D times Medical tablet 00 daily . [place] UNITHROID 2020-0 Yes 125ug QD Take [address] [facility] [address] 125 mcg 1-10 [facility]cg [facility]: mouth Medical 00 nightly . [place] amlodipine 2020-0 No 1mg 10 mg 1-08 [...] 10 mg 1-19 tablet 00:00: 00 calcium 2019- No 1(1,250 carbonate 1-19 mg) 500 mg 00:00: calcium 00 (1,250 mg) chewable tablet amlodipine 2018- No 1mg 10 mg 1-19 tablet 00:00: 00 aspirin 81 2018- No 1mg mg 1-19 tablet,girma 00:00: yed release atorvastati 2018- No 1mg n 10 mg 1-19 tablet 00:00: 00 calcium 2018-1 No 1(1,250 carbonate 1-19 mg) 500 mg 00:00: calcium 00 (1,250 mg) chewable tablet amlodipine 2018- No 1mg 10 mg 1-19 tablet 00:00: 00 aspirin 81 2018- No 1mg mg 1-19 tablet,girma 00:00: yed release atorvastati 2018- No 1mg n 10 mg 1-19 tablet 00:00: 00 calcium 2018- No 1(1,250 carbonate 1-19 mg) 500 mg 00:00: calcium 00 (1,250 mg) chewable tablet amlodipine 2018- No 1mg 10 mg 1-19 tablet 00:00: 00 aspirin 81 2018- No 1mg mg 1-19 tablet,girma 00:00: yed release atorvastati 2018- No 1mg n 10 mg [...] 10 mg 1-12 tablet 00:00: 00 benzonatate 2018-1 No 1mg 200 mg 1-12 capsule 00:00: 00 benzonatate 2018- No 1mg 200 mg 1-12 capsule 00:00: 00 loratadine 2018- No 1mg 10 mg 1-12 tablet 00:00: 00 benzonatate 2018-1 No 1mg 200 mg 1-12 capsule 00:00: [...] 1-12 capsule 00:00: 00 gabapentin 2018-05 Yes [id number] 100mg Take 1 [facility] 100 mg 0-22 capsule by [facility] capsule 00:00: mouth 3 [place] 00 (three) Medical times Branch daily. gabapentin 2018-05 Yes [id number] 100mg Take 1 [facility] 100 mg 0-22 capsule by [facility] of capsule 00:00: mouth 3 [place] 00 (three) Medical times Branch daily. gabapentin 2018-05 Yes [id number] 100mg Take 1 [facility] 100 mg 0-22 [...] mcg 0-01 tablet 00:00: 00 aspirin 81 2018- No [...] calcium 00 (1,250 mg) chewable tablet levothyroxi 2018- No 1mcg ne 200 mcg [...] mcg 0-01 tablet 00:00: 00 amLODIPine Yes [id number] 10mg Take 1 [facility] nivers 10 mg 9-16 tablet by ity of tablet 00:00: mouth [place] 00 daily. Medical Branch aspirin 81 Yes [id number] 81mg Take 1 [facility] mg chewable 9-16 tablet by ity of tablet 00:00: mouth [place] 00 daily. Medical Branch atorvastati Yes [id number] 40mg Take 2 [facility] n 20 mg 9-16 tablets by ity of tablet 00:00: mouth at [place] 00 bedtime. Medical Branch calcium Yes [id number] 1000mg Take 2 [facility] n[facility] carbonate 9-16 tablets by ity of (CALCIUM 00:00: mouth 3 [place] 500) 500 mg 00 (three) Medic al calcium times Branch (1,250 mg) daily with tablet meals. meclizine 2019-0 Yes [id number] 25mg Take 2 U nivers 12.5 mg 9-16 tablets by ity of tablet 00:00: mouth 3 [place] 00 (three) Medical times Branch daily as needed for Dizziness. [place] (for dizziness) sevelamer 2019-0 Yes [id number] 800mg Take 1 [facility] 800 mg 9-16 tablet by [facility]y of tablet 00:00: mouth 3 [place] 00 (three) Medical times Branch daily with meals. amLODIPine 2018-0 Yes [id number] 10mg Take 1 U nivers 10 mg 9-16 tablet by ity of tablet 00:00: mouth [place] 00 daily. Medical Branch aspirin 81 2018-0 Yes [id number] 81mg Take 1 [facility] mg chewable 9-16 tablet by ity of tablet 00:00: mouth [place] 00 daily. Medical Branch atorvastati 0 Yes [id number] 40mg Take 2 [facility] n 20 mg 9-16 tablets by ity of tablet 00:00: mouth at [place] 00 bedtime. Medical Branch calcium 2018-0 Yes [id number] 1000mg Take 2 U nivers carbonate 9-16 tablets by ity of (CALCIUM 00:00: mouth 3 [place] 500) 500 mg 00 (three) Medic al calcium times Branch (1,250 mg) daily with tablet meals. meclizine 2019-0 Yes [id number] 25mg Take 2 U nivers 12.5 mg 9-16 tablets by ity of tablet 00:00: mouth 3 [place] 00 (three) Medical times Branch daily as needed for Dizziness. [place] (for dizziness) sevelamer 2019-0 Yes [id number] 800mg Take 1 [facility] 800 mg 9-16 tablet by ity of tablet 00:00: mouth 3 [place] 00 (three) Medical times Branch daily with meals. amLODIPine 2019-0 Yes [id number] 10mg Take 1 U nivers 10 mg 9-16 tablet by ity of tablet 00:00: mouth [place] 00 daily. Medical Branch aspirin 81 2018-0 Yes [id number] 81mg Take 1 [facility] mg chewable 9-16 tablet by ity of tablet 00:00: mouth [place] 00 daily. Medical Branch atorvastati 2018- Yes [id number] 40mg Take 2 [facility] n 20 mg 9-16 tablets by ity of tablet 00:00: mouth at [place] 00 bedtime. Medical Branch calcium 2018- Yes [id number] 1000mg Take 2 U nivers carbonate 9-16 tablets by ity of (CALCIUM 00:00: mouth 3 [place] 500) 500 mg 00 (three) Medic al calcium times Branch (1,250 mg) daily with tablet meals. meclizine 2018- Yes [id number] 25mg Take 2 U nivers 12.5 mg 9-16 tablets by ity of tablet 00:00: mouth 3 [place] 00 (three) Medical times Branch daily as needed for Dizziness. [place] (for dizziness) sevelamer 2018- Yes [id number] 800mg Take 1 [facility] 800 mg 9-16 [...] 15:20: daily. [facility] tablet 50 l levothyroxi 2019 Yes 150ug QD Take 150 M ethodi [...] daily. l 150 mcg tablet levothyroxi 2019-0 Yes 150ug QD Take 150 [...] 2018-03-07 Completed [facility] o f Polysaccharide, 00:00:00 [place] [facility] PPSV23 (PNEUMOVAX) Branch Pneumococcal 2018-03-07 Completed [place] o f Polysaccharide, 00:00:00 [place] [facility] ical PPSV23 (PNEUMOVAX) Branch Pneumococcal 2018-03-07 Completed [place] [facility] f Polysaccharide, 00:00:00 [place] [facility] ical PPSV23 (PNEUMOVAX) [place] Vital Signs Vital Name Observation Time Observation Value Comments Source HEIGHT 2019-11-07 00:00:00 162.6 cm WEIGHT 2019-11-07 00:00:00 76.4 kg Systolic blood 2021-12-02 19:06:00 116 mm[Hg] Univer sity of pressure [facility] Diastolic blood 2021-12-02 19:06:00 68 mm[Hg] Unive rsity of [facility] Heart rate 2021-12-02 19:06:00 69 /min [facility] Body height 2021-12-02 19:06:00 162.6 cm [facility] Body weight 2021-12-02 19:06:00 78.019 kg [facility] BMI 2021-12-02 19:06:00 29.52 kg/m2 [facility] Oxygen saturation in 2021-12-02 19:06:00 95 /[facility] Arterial blood by [facility] Pulse oximetry Branch HEIGHT 2019-11-07 00:00:00 [...] 2022-05-28 06:01:00 Doctor Unassigned, No [facility] REQUEST/RESPONSE Name Medical Branch [id number] 2022-04-17 00:00:00 [facility] j[facility] [id number] 2022-04-08 00:00:00 [facility] j[facility] Plan of Care Planned Activity Planned Date Details Comments Source Future Scheduled 2022-07-[address] [facility] 00:[facility]:00 (procedure) [code = [facility] [id number]] Future Scheduled 2022-07-[address] [facility] Test 00:00:00 (procedure) [code = [facility] [id number]] Future Scheduled 2022-07-[address] [facility] Test 00:00:00 (procedure) [code = [facility] Center [id number]] Future Scheduled 2022-07-[address] [facility] Test 00:00:00 (procedure) [code = Medical Center [id number]] Future Scheduled 2022-07-[address] [facility] Test 00:00:00 (procedure) [code = Medical Center [id number]] Future Scheduled 2022-07-[address] [facility] Test 00:00:00 (procedure) [code = Medical Center [id number]] Future Scheduled 2022-07-[address] [facility] Test 00:00:00 (procedure) [code = Medical Center [id number]] Future Scheduled 2022-07-[address] [facility] Test 00:00:00 (procedure) [code = Medical Center [id number]] Future Scheduled 2022-07-[address] [facility] Test 00:00:00 (procedure) [code = Medical Center [id number]] Future Scheduled 2022-07-[address] [facility] Test 00:00:00 (procedure) [code = Medical Center [id number]] Future Scheduled 2022-07-[address] [facility] Test 00:00:00 (procedure) [code = [facility] [id number]] Future Scheduled 2022-07-[address] [facility] Test 00:00:00 (procedure) [code = Medical Center [id number]] Future Scheduled 2022-07-[address] [facility] Test 00:00:00 (procedure) [code = Medical Center [id number]] Future Scheduled 2022-07-[address] [facility] 00:00:00 (procedure) [code = Medical Center [id number]] Future Scheduled 2022-07-[address] [facility] Test 00:00:00 (procedure) [code = Medical Center [id number]] Future Scheduled 2022-06-15 COVID-19 VACCINE (#1) [facility] Test 10:12:43 [code = COVID-19 VACCINE (#1)] Future Scheduled 2022-06-15 [facility]CREENING [facility] 10:12:43 [code = COLONOSCOPY SCREENING] Future Scheduled 2022-06-15 [facility] 10:12:43 of 2) [code = SHINGLES VACCINES (1 of 2)] Future Scheduled 2022-06-15 INFLUENZA VACCINE [facility] Test 10:12:43 [code = INFLUENZA VACCINE] Future Scheduled 2022-05-28 [facility] 09:36:27 [code = COVID-19 VACCINE (#1)] Future Scheduled 2022-05-28 [facility] 09:36:27 [code = COLONOSCOPY SCREENING] Future Scheduled 2022-05-28 SHING[facility]INES ([facility] 09:36:27 of 2) [code = SHINGLES VACCINES (1 of 2)] Future Scheduled 2022-05-28 INFLUENZA VACCINE [facility] Test 09:36:27 [code = INFLUENZA VACCINE] Future Scheduled 2022-05-28 COVID[facility] (#[facility] 09:36:27 [code = COVID-19 VACCINE (#1)] Future Scheduled 2022-05-28 [facility] 09:36:27 [code = COLONOSCOPY SCREENING] Future Scheduled 2022-05-28 [facility]INGLES [facility]INES ([facility] 09:36:27 of 2) [code = SHINGLES VACCINES (1 of 2)] Future Scheduled 2022-05-28 INFLUENZA VACCINE [facility] Test 09:36:27 [code = INFLUENZA VACCINE] Future Scheduled 2022-05-11 COVID[facility]19 [facility] (#[facility] 00:38:04 [code = COVID-19 VACCINE (#1)] Future Scheduled 2022-05-11 [facility] 00:38:04 [code = COLONOSCOPY SCREENING] Future Scheduled 2022-05-11 SHINGLES [facility]ACCINES ([facility] 00:38:04 of 2) [code = SHINGLES VACCINES (1 of 2)] Future Scheduled 2022-05-11 INFLUENZA VACCINE [facility] Test 00:38:04 [code = INFLUENZA VACCINE] Future Scheduled 2022-05-11 COVID-19 VACCINE (#1) [facility] 00:38:04 [code = COVID-19 VACCINE (#1)] Future Scheduled 2022-05-11 COLONOSCOPY SCREENING [facility] Test 00:38:04 [code = COLONOSCOPY SCREENING] Future Scheduled 2022-05-11 SHINGLES VACCINES (1 Met [facility] Test 00:38:04 of 2) [code = SHINGLES [...] (12+)] Future Scheduled 2022-04-23 COVID-19 VACCINE (#1) [facility] Test 11:12:56 [code = COVID-19 VACCINE (#1)] Future Scheduled 2022-04-23 COLONOSCOPY SCREENING [facility] Test 11:12:56 [code = COLONOSCOPY SCREENING] Future Scheduled 2022-04-23 SHINGLES VACCINES (1 [facility] Test 11:12:56 of 2) [code = SHINGLES VACCINES (1 of 2)] Future Scheduled 2022-04-23 INFLUENZA VACCINE Method [facility] Test 11:12:56 [code = INFLUENZA VACCINE] Future Scheduled 2022-04-20 COVID-19 VACCINE (#1) [facility] Test 13:44:31 [code = COVID-19 VACCINE (#1)] Future Scheduled 2022-04-20 COLONOSCOPY SCREENING [facility] Test 13:44:31 [code = COLONOSCOPY SCREENING] Future Scheduled 2022-04-20 SHINGLES VACCINES (1 [facility] Test 13:44:31 of 2) [code = SHINGLES VACCINES (1 of 2)] Future Scheduled 2022-04-20 INFLUENZA VACCINE [facility] Test 13:44:31 [code = INFLUENZA VACCINE] Future Scheduled 2022-04-20 COVID-19 VACCINE (#1) [facility] Test 13:44:31 [code = COVID-19 VACCINE (#1)] Future Scheduled 2022-04-20 [facility] 13:44:31 [code = COLONOSCOPY SCREENING] Future Scheduled 2022-04-20 SHINGLES VACCINES (1 [facility] Test 13:44:31 of 2) [code = SHINGLES VACCINES (1 of 2)] Future Scheduled 2022-04-20 INFLUENZA VACCINE [facility] Test 13:44:31 [code = INFLUENZA VACCINE] Future Scheduled 2022-04-20 COVID-19 VACCINE (#1) [facility] Test 13:44:31 [code = COVID-19 VACCINE (#1)] Future Scheduled 2022-04-20 COLONOSCOPY SCREENING [facility] Test 13:44:31 [code = COLONOSCOPY SCREENING] Future Scheduled 2022-04-20 SHINGLES VACCINES (1 [facility] Test 13:44:31 of 2) [code = SHINGLES VACCINES (1 of 2)] Future Scheduled 2022-04-20 INFLUENZA VACCINE [facility] Test 13:44:31 [code = INFLUENZA VACCINE] Future Scheduled 2022-04-20 COVID-19 VACCINE (#1) [facility] Test 13:44:31 [code = COVID-19 VACCINE (#1)] Future Scheduled 2022-04-20 COLONOSCOPY SCREENING [facility] Test 13:44:31 [code = COLONOSCOPY SCREENING] Future Scheduled 2022-04-20 SHINGLES VACCINES (1 [facility] Test 13:44:31 of 2) [code = SHINGLES VACCINES (1 of 2)] Future Scheduled 2022-04-20 INFLUENZA VACCINE [facility] Test 13:44:31 [code = INFLUENZA VACCINE] Future Scheduled 2022-03-04 HEPATITIS B VACCINES [facility] Test 13:56:11 (1 of 3 - 3-dose series) [code = HEPATITIS B VACCINES (1 of 3 - 3-dose series)] Future Scheduled 2022-03-04 COVID-19 VACCINE (#1) [facility] Test 13:56:11 [code = COVID-19 VACCINE (#1)] Future Scheduled 2022-03-04 COLONOSCOPY SCREENING [facility] Test 13:56:11 [code = COLONOSCOPY SCREENING] Future Scheduled 2022-03-04 SHINGLES VACCINES (1 [facility] Test 13:56:11 of 2) [code = SHINGLES VACCINES (1 of 2)] Future Scheduled 2022-03-04 INFLUENZA VACCINE [facility] Test 13:56:11 [code = INFLUENZA VACCINE] Future Scheduled 2022-03-04 HEPATITIS B VACCINES Met [facility] Test 13:56:11 (1 of 3 - 3-dose series) [code = HEPATITIS B VACCINES (1 of 3 - 3-dose series)] Future Scheduled 2022-03-04 COVID-19 VACCINE (#1) [facility] Test 13:56:11 [code = COVID-19 VACCINE (#1)] Future Scheduled 2022-03-04 COLONOSCOPY SCREENING [facility] Test 13:56:11 [code = COLONOSCOPY SCREENING] Future Scheduled 2022-03-04 SHINGLES VACCINES (1 [facility] Test 13:56:11 of 2) [code = SHINGLES VACCINES (1 of 2)] Future Scheduled 2022-03-04 INFLUENZA VACCINE [facility] Test 13:56:11 [code = INFLUENZA VACCINE] Future Scheduled 2022-03-04 HEPATITIS B VACCINES [facility] Test 13:56:11 (1 of 3 - 3-dose series) [code = HEPATITIS B VACCINES (1 of 3 - 3-dose series)] Future Scheduled 2022-03-04 COVID-19 VACCINE (#1) [facility] Test 13:56:11 [code = COVID-19 VACCINE (#1)] Future Scheduled 2022-03-04 COLONOSCOPY SCREENING [facility] Test 13:56:11 [code = COLONOSCOPY SCREENING] Future Scheduled 2022-03-04 SHINGLES VACCINES (1 [facility] Test 13:56:11 of 2) [code = SHINGLES VACCINES (1 of 2)] Future Scheduled 2022-03-04 INFLUENZA VACCINE Method [facility] Test 13:56:11 [code = INFLUENZA VACCINE] Future Scheduled 2022-02-08 HEPATITIS B VACCINES Met [facility] Test 14:31:50 (1 of 3 - 3-dose series) [code = HEPATITIS B VACCINES (1 of 3 - 3-dose series)] Future Scheduled 2022-02-08 COVID-19 VACCINE (#1) [facility] Test 14:31:50 [code = COVID-19 VACCINE (#1)] Future Scheduled 2022-02-08 COLONOSCOPY SCREENING [facility] Test 14:31:50 [code = COLONOSCOPY SCREENING] Future Scheduled 2022-02-08 SHINGLES VACCINES (1 [facility] Test 14:31:50 of 2) [code = SHINGLES VACCINES (1 of 2)] Future Scheduled 2022-02-08 INFLUENZA VACCINE Method [facility] Test 14:31:50 [code = INFLUENZA VACCINE] Future Scheduled 2022-01-03 HEPATITIS B VACCINES Met [facility] Test 04:21:26 (1 of 3 - 3-dose series) [code = HEPATITIS B VACCINES (1 of 3 - 3-dose series)] Future Scheduled 2022-01-03 COVID-19 VACCINE (#1) [facility] Test 04:21:26 [code = COVID-19 VACCINE (#1)] Future Scheduled 2022-01-03 Pneumococcal Vaccine: [facility] Test 04:21:26 Pediatrics (0 to 5 Years) and At-Risk Patients (6 to 64 Years) (1 - PCV) [code = Pneumococcal Vaccine: Pediatrics (0 to 5 Years) and At-Risk Patients (6 to 64 Years) (1 - PCV)] Future Scheduled 2022-01-03 Hepatitis C screening [facility] Test 04:21:26 (procedure) [code = [id number]] Future Scheduled 2022-01-03 SHINGLES VACCINES (1 [facility] Test 04:21:26 of 2) [code = SHINGLES VACCINES (1 of 2)] Future Scheduled 2022-01-03 COLONOSCOPY SCREENING [facility] Test 04:21:26 [code = COLONOSCOPY SCREENING] Future Scheduled 2022-01-03 INFLUENZA VACCINE [facility] Test 04:21:26 [code [...] Future Scheduled 2021-12-27 HEPATITIS B VACCINES Met [facility] Test 10:00:17 (1 of 3 - 3-dose series) [code = HEPATITIS B VACCINES (1 of 3 - 3-dose series)] Future Scheduled 2021-12-27 COVID-19 VACCINE (#1) [facility] Test 10:00:17 [code = COVID-19 VACCINE (#1)] Future Scheduled 2021-12-27 Pneumococcal Vaccine: [facility] Test 10:00:17 Pediatrics (0 to 5 Years) and At-Risk Patients (6 to 64 Years) (1 - PCV) [code = Pneumococcal Vaccine: Pediatrics (0 to 5 Years) and At-Risk Patients (6 to 64 Years) (1 - PCV)] Future Scheduled 2021-12-27 Hepatitis C screening [facility] Test 10:00:17 (procedure) [code = [id number]] Future Scheduled 2021-12-27 SHINGLES VACCINES (1 Met [facility] Test 10:00:17 of 2) [code = SHINGLES VACCINES (1 of 2)] Future Scheduled 2021-12-27 COLONOSCOPY SCREENING [facility] Test 10:00:17 [code = COLONOSCOPY SCREENING] Future Scheduled 2021-12-27 INFLUENZA VACCINE [facility] Test 10:00:17 [code = INFLUENZA VACCINE] [...] 00:00:00 measurement [facility] Center (procedure) [code = 65560522] Future Scheduled 2020-01-[address] [facility] measurement [facility] Center (procedure) [code = 02437082] Future Scheduled 2020-01-[address] [facility] 00:[facility]:00 measurement [facility] Center (procedure) [code = 94330283] Future Scheduled 2020-01-[address] [facility] 00:00:00 measurement Medical Center (procedure) [code = 63659427] Future Scheduled 2020-01-[address] [facility] 00:00:00 measurement [facility] Center (procedure) [code = 48327927] Future Scheduled 2020-01-[address] [facility] 00:00:00 measurement Medical Center (procedure) [code = 39458557] Future Scheduled 2020-01-[address] [facility] 00:00:00 measurement Medical Center (procedure) [code = 11293010] Future Scheduled 2020-01-[address] [facility] 00:00:00 measurement [facility] Center (procedure) [code = 07395353] Future Scheduled 2020-01-[address] [facility] 00:00:00 measurement Medical Center (procedure) [code = 17085667] Future Scheduled 2020-01-[address] [facility] 00:00:00 measurement Medical Center (procedure) [code = 48183575] Future Scheduled 2020-01-[address] [facility] 00:00:00 measurement Medical Center (procedure) [code = 21402843] Future Scheduled 2020-01-[address] [facility] 00:00:00 measurement Medical Center (procedure) [code = 03239277] Future Scheduled 2020-01-[address] [facility] 00:00:00 measurement [facility] Center (procedure) [code = 82286815] Future Scheduled 2020-01-[address] [facility] 00:00:00 measurement [facility] Center (procedure) [code = 14091969] Future Scheduled 2020-01-[address] [facility] 00:00:00 measurement Medical Center (procedure) [code = 16016833] Future Scheduled 2019-11-[address] [...] 00:00:00 examination Medical Center (regime/therapy) [code = 298237520] Future Scheduled 1975 Urine screening for [facility] Test 00:00:00 protein (procedure) Medical Center [code = 243355876] Future Scheduled 1975 DIABETIC EYE EXAM [facility] Test 00:00:00 [code = DIABETIC EYE Medical Center EXAM] Future Scheduled [address] [facility] 00:[facility] examination Medical Center (regime/therapy) [code = 050288971] Future Scheduled 1975 Urine screening for [facility] Test 00:00:00 protein (procedure) Medical Center [code = 769011526] Future Scheduled [address] EYE EXAM [facility] Test 00:00:00 [code = DIABETIC EYE Medical Center EXAM] Future Scheduled [address] [facility] 00:00:00 examination Medical Center (regime/therapy) [code = 322756463] Future Scheduled 1975 Urine screening for [facility] Test 00:00:00 protein (procedure) Medical Center [code = 463545768] Future Scheduled [address] EYE EXAM [facility] Test 00:00:00 [code = DIABETIC EYE Medical Center EXAM] Future Scheduled [address] [facility] 00:00:00 examination Medical Center (regime/therapy) [code = 641401360] Future Scheduled 1975 Urine screening for [facility] Test 00:00:00 protein (procedure) Medical Center [code = 202316926] Future Scheduled [address]AB[address]IC EYE EXAM [facility] Test 00:00:00 [code = DIABETIC EYE Medical Center EXAM] Future Scheduled [address] [facility] 00:00:00 examination Medical Center (regime/therapy) [code = 922237804] Future Scheduled 1975 Urine screening for [facility] Test 00:00:00 protein (procedure) Medical Center [code = 547535708] Future Scheduled [address] EYE EXAM [facility] Test 00:00:00 [code = DIABETIC [facility] Future Scheduled [address] [facility] examination [facility] (regime/therapy) [code = [id number]] Future Scheduled 1975 Urine screening for [facility] 00:00:00 protein (procedure) [facility] [code = 079980195] Future Scheduled [address]YE EXAM [facility] 00:00:00 [code = DIABETIC EYE [facility] EX[facility]] Future Scheduled [address] [facility]00 examination [facility] (regime[facility]therapy) [code = 520682735] Future Scheduled 1975 Urine screening for [facility] 00:00:00 protein (procedure) [facility] [code = 845338750] Future Scheduled [address]YE EXAM [facility] 00:00:00 [code = DIABETIC EYE [facility] EXAM] Future Scheduled [address] [facility]00 examination [facility] (regime[facility]therapy) [code = 668143610] Future Scheduled 1975 Urine screening for [facility] 00:00:00 protein (procedure) [facility] [code = 491581090] Future Scheduled [address]YE EXAM [facility] 00:00:00 [code = DIABETIC EYE [facility] EXAM] Future Scheduled [address] [facility]00 examination [facility] (regime[facility]therapy) [code = 300194660] Future Scheduled 1975 Urine screening for [facility] 00:00:00 protein (procedure) [facility] [code = 795125508] Future Scheduled [address]YE EXAM [facility] 00:00:00 [code = DIABETIC EYE [facility] EXAM] Future Scheduled [address] EYE EXAM [facility] 00:00:00 [code = DIABETIC EYE [facility] EXAM] Future Scheduled [address] [facility]00 examination [facility] (regime[facility]therapy) [code = 105277271] Future Scheduled 1975 Urine screening for [facility] 00:00:00 protein (procedure) [facility] [code = 902844930] Future Scheduled [address] [facility]00 examination [facility] (regime[facility]therapy) [code = 967731984] Future Scheduled 1975 Urine screening for [facility] 00:00:00 protein (procedure) [facility] [code = 600316567] Future Scheduled [address]YE EXAM [facility] 00:00:00 [code = DIABETIC EYE [facility] EXAM] Future Scheduled [address] [facility]00 examination [facility] (regime[facility]therapy) [code = 260852677] Future Scheduled 1975 Urine screening for [facility] 00:00:00 protein (procedure) [facility] [code = 380346895] Future Scheduled [address]YE EXAM [facility] 00:00:00 [code = DIABETIC EYE [facility] EXAM] Future Scheduled [address] [facility]00 examination [facility] (regime[facility]therapy) [code = 275523541] Future Scheduled 1975 Urine screening for [facility] 00:00:00 protein (procedure) [facility] [code = 676946850] Future Scheduled [address] EYE EXAM [facility] 00:00:00 [code = DIABETIC EYE [facility] EXAM] Future Scheduled [address] [facility]:00 examination [facility] (regime[facility]therapy) [code = 210125507] Future Scheduled 1975 Urine screening for [facility] 00:00:00 protein (procedure) [facility] [code = 212644991] Future Scheduled [address] EYE EXAM [facility] 00:00:00 [code = DIABETIC EYE [facility] EXAM] Future Scheduled [address] [facility] 00:[facility]:00 examination [facility] (regime/therapy) [code = 299789384] Future Scheduled 1975 Urine screening for [facility] 00:00:00 protein (procedure) [facility] [code = 936456733] Future Scheduled 1965 COVID-19 VACCINE (#1) [facility] colon (procedure) [code = 007051685] Future Scheduled [address] [facility] 00:[facility]:00 malignant [facility] colon [facility]procedure) [code = 895345251] Future Scheduled [address] [facility] 00:00:00 [facility] (procedure) [code = 639365187] Future Scheduled [address] [facility] 00:00:00 [facility] colon (procedure) [code = 235644584] Future Scheduled 1965 S[facility]oidoscopy [facility] Future Scheduled [address] [facility] 00:[facility]:00 (combo) [code = CT [facility] enter Colonography (combo)] Future Scheduled [address] [facility] 00:00:00 malignant ne[facility] colon (procedure) [code = 174480502] Future Scheduled [address] [facility] 00:00:00 malignant [facility] colon (procedure) [code = 533882562] Future Scheduled [address] [facility] 00:00:00 malignant [facility] of [facility] colon (procedure) [code = 000995709] Future Scheduled [address] [facility] 00:00:00 malignant [facility] colon (procedure) [code = 221037913] Future Scheduled 1965 [facility]] [facility] Future Scheduled [address] [facility] 00:00:00 (combo) [code = CT [facility] Colonography (combo)] Future Scheduled [address] [facility] 00:00:00 [facility] colon (procedure) [code = 315927101] Future Scheduled [address] [facility]00 [facility] colon (procedure) [code = 331518465] Future Scheduled [address] [facility] 00:00:00 [facility] colon (procedure) [code = 051962349] Future Scheduled [address] [facility] 00:00:00 [facility] colon (procedure) [code = 041311260] Future Scheduled 1965 [facility]] [facility] Future Scheduled [address] [facility] 00:00:00 (combo) [code = CT [facility] Colonography (combo)] Future Scheduled [address] [facility] 00:00:00 malignant [facility] colon (procedure) [code = 054193629] Future Scheduled [address] [facility] 00:00:00 malignant [facility] of [facility] colon (procedure) [code = 717121674] Future Scheduled [address] [facility] 00:00:00 [facility] colon (procedure) [code = 729058647] Future Scheduled [address] [facility] 00:00:00 [facility] colon (procedure) [code = 998003903] Future Scheduled 1965 [facility]oidoscopy [facility]] [facility] Future Scheduled [address] [facility] 00:00:00 (combo) [code = CT [facility] enter Colonography (combo)] Future Scheduled [address] [facility] 00:00:00 malignant [facility] colon (procedure) [code = 645998314] Future Scheduled [address] [facility] 00:00:00 [facility] colon (procedure) [code = 804419270] Future Scheduled [address] [facility] 00:00:00 malignant [facility] colon (procedure) [code = 689443180] Future Scheduled [address] [facility] 00:00:00 malignant neoplasm [facility] colon (procedure) [code = 914517330] Future Scheduled 1965 [facility]oid[facility]] [facility] r Future Scheduled [address] [facility] 00:00:00 (combo) [code = CT [facility] enter Colonography (combo)] Future Scheduled [address] [facility] 00:00:00 [facility] colon (procedure) [code = 796746720] Future Scheduled [address] [facility] 00:00:00 malignant [facility] colon (procedure) [code = 911818796] Future Scheduled [address] [facility] 00:00:00 malignant [facility] colon (procedure) [code = 801672002] Future Scheduled [address] [facility] 00:00:00 malignant [facility] colon (procedure) [code = 047419424] Future Scheduled 1965 S[facility]oscopy [facility]] [facility] Future Scheduled [address] [facility] 00:00:00 (combo) [code = CT [facility] enter Colonography (combo)] Future Scheduled [address] [facility] 00:00:00 [facility] colon (procedure) [code = 310687223] Future Scheduled [address] [facility] 00:00:00 [facility] colon (procedure) [code = 331057397] Future Scheduled [address] [facility] 00:00:00 [facility] of [facility] colon (procedure) [code = 400777206] Future Scheduled [address] [facility] 00:00:00 [facility] colon (procedure) [code = 765249036] Future Scheduled 1965 Sigmoidoscopy [code = [facility] [...] [facility] colon (procedure) [code = 870530765] Future Scheduled [address] [facility] 00:00:00 [facility] colon (procedure) [code = 042669444] Future Scheduled [address] [facility] 00:00:00 malignant ne[facility] of [facility] colon (procedure) [code = 314550461] Future Scheduled [address] [facility] 00:00:00 malignant neoplasm of [facility] colon (procedure) [code = 064723293] Future Scheduled [address] [facility] 00:00:00 [facility] colon (procedure) [code = 368310378] Future Scheduled 1965 [facility]oidoscopy [facility]] [facility] Future Scheduled [address] [facility] 00:00:00 [facility] colon (procedure) [code = 037373703] Future Scheduled [address] [facility] 00:00:00 [facility] colon (procedure) [code = 489474061] Future Scheduled [address] [facility] 00:00:00 (combo) [code = CT [facility] Colonography (combo)] Future Scheduled [address] [facility] 00:00:00 [facility] ne[facility] colon (procedure) [code = 191405972] Future Scheduled [address] [facility] 00:00:00 malignant neoplasm of [facility] colon (procedure) [code = 962980236] Future Scheduled [address] [facility] 00:00:00 malignant neoplasm of [facility] colon (procedure) [code = 519400127] Future Scheduled [address] [facility] 00:00:00 malignant neoplasm of [facility] colon (procedure) [code = 833931309] Future Scheduled [address] [facility] 00:00:00 malignant neoplasm of [facility] colon (procedure) [code = 648452174] Future Scheduled 1965 Sigmoidoscopy [code = [facility] [...] [facility] colon (procedure) [code = 472498573] Future Scheduled [address] [facility] 00:00:00 malignant neoplasm of [facility] colon (procedure) [code = 686034306] Future Scheduled [address] [facility] 00:00:00 malignant neoplasm of [facility] colon (procedure) [code = 016376631] Future Scheduled [address] [facility] 00:00:00 malignant neoplasm of [facility] colon (procedure) [code = 147203444] Future Scheduled 1965 S[facility]oidoscopy [facility]] [facility] Future Scheduled [address] [facility] 00:00:00 (combo) [code = CT [facility] enter Colonography (combo)] Future Scheduled [address] [facility] 00:00:00 [facility] colon (procedure) [code = 266518279] Future Scheduled [address] [facility] 00:00:00 [facility] colon (procedure) [code = 188875829] Future Scheduled [address] [facility] 00:00:00 [facility] neoplasm of [facility] colon (procedure) [code = 270836031] Future Scheduled [address] [facility] 00:00:00 malignant neoplasm of [facility] colon (procedure) [code = 137608984] Future Scheduled 1965 [facility]oidoscopy [facility]] [facility] Future Scheduled [address] [facility] 00:00:00 (combo) [code = CT [facility] enter Colonography (combo)] Future Scheduled [address] [facility] 00:00:00 malignant ne[facility] of [facility] colon (procedure) [code = 169580712] Future Scheduled [address] [facility] 00:00:00 malignant neoplasm of [facility] colon (procedure) [code = 887019643] Future Scheduled [address] [facility] 00:00:00 malignant neoplasm of [facility] colon (procedure) [code = 085407627] Future Scheduled [address] [facility] 00:00:00 malignant neoplasm of [facility] colon (procedure) [code = 650905885] Future Scheduled 1965 [facility]oidoscopy [facility]] Medical [facility] Future Scheduled [address] [facility] 00:00:00 (combo) [code = CT Medical C enter Colonography (combo)] Future Scheduled [address] [facility] 00:00:00 malignant ne[facility] of [facility] colon (procedure) [code = 177124071] Future Scheduled [address] [facility] 00:00:00 [facility] neoplasm of [facility] colon (procedure) [code = 794909773] Future Scheduled [address] [facility] 00:00:00 [facility] colon (procedure) [code = 074661258] Future Scheduled [address] [facility] 00:00:00 [facility]oplasm of [facility] colon (procedure) [code = 690493567] Future Scheduled 1965 S[facility]oidoscopy [facility]] Medical [facility] Future Scheduled [address] [facility] 00:00:00 (combo) [code = CT Medical C enter Colonography (combo)] Future Scheduled [address] [facility] 00:00:00 [facility] colon (procedure) [code = 591151405] Future Scheduled [address] [facility] 00:00:00 [facility] of [facility] colon (procedure) [code = 248658052] Future Scheduled [address] [facility] 00:00:00 malignant neoplasm of [facility] colon (procedure) [code = 708110583] Future Scheduled [address] [facility] 00:00:00 malignant neoplasm of [facility] colon (procedure) [code = 276843357] Future Scheduled 1965 Sigmoidoscopy [facility]] Medical [facility] Goal Plan of Care Note [code = 73410-8] Goal Plan of Care Note [code = 59826-2] Goal Plan of Care Note [code = 20830-9] Goal Plan of Care Note [code = 72413-5] Goal Plan of Care Note [code = 97184-0] Goal Plan of Care Note [code = 69754-7] Goal Plan of Care Note [code = 66345-5] Goal Plan of Care Note [code = 72709-4] Goal Plan of Care Note [code = 01685-0] Goal Plan of Care Note [code = 11500-4] Goal Plan of Care Note [code = 14709-0] Goal Plan of Care Note [code = 59754-8] Goal Plan of Care Note [code = 04421-5] Goal Plan of Care Note [code = 15781-0] Goal Plan of Care Note [code = 36095-0] Goal Plan of Care Note [code = 99093-1] Goal Plan of Care Note [code = 41369-4] Goal Plan of Care Note [code = 21133-1] Goal Plan of Care Note [code = 90934-8] Goal Plan of Care Note [code = 55367-2] Goal Plan of Care Note [code = 51008-9] Goal Plan of Care Note [code = 97647-3] Goal Plan of Care Note [code = 84121-3] Goal Plan of Care Note [code = 98484-6] Goal Plan of Care Note [code = 10866-9] Goal Plan of Care Note [code = 27252-4] Goal Plan of Care Note [code = 01330-3] Goal Plan of Care Note [code = 02693-4] Goal Plan of Care Note [code = 08115-8] Goal Plan of Care Note [code = 87687-3] Goal Plan of Care Note [code = 63453-1] Goal Plan of Care Note [code = 85799-5] Goal Plan of Care Note [code = 91401-1] Goal Plan of Care Note [code = 59316-9] Goal Plan of Care Note [code = 18705-2] Goal Plan of Care Note [code = 81952-6] Goal Plan of Care Note [code = 61067-6] Goal Plan of Care Note [code = 11842-3] Goal Plan of Care Note [code = 55353-2] Goal Plan of Care Note [code = 41998-3] Goal Plan of Care Note [code = 80682-2] Goal Plan of Care Note [code = 63876-1] Goal Plan of Care Note [code = 85393-2] Goal Plan of Care Note [code = 25335-7] Goal Plan of Care Note [code = 10874-3] Goal Plan of Care Note [code = 96537-8] Goal Plan of Care Note [code = 55338-2] Goal Plan of Care Note [code = 66151-0] Goal Plan of Care Note [code = 55372-2] Goal Plan of Care Note [code = 24681-3] Goal Plan of Care Note [code = 18137-7] Goal Plan of Care Note [code = 09493-7] Goal Plan of Care Note [code = 29378-2] Goal Plan of Care Note [code = 82400-6] Goal Plan of Care Note [code = 67043-0] Goal Plan of Care Note [code = 76962-8] Goal Plan of Care Note [code = 47925-8] Goal Plan of Care Note [code = 80212-8] Goal Plan of Care Note [code = 82397-0] Goal Plan of Care Note [code = 10596-3] Goal Plan of Care Note [code = 88985-8] Goal Plan of Care Note [code = 07106-0] Goal Plan of Care Note [code = 99432-5] Goal Plan of Care Note [code = 89670-6] Goal Plan of Care Note [code = 13091-5] Goal Plan of Care Note [code = 30742-8] Goal Plan of Care Note [code = 12309-4] Goal Plan of Care Note [code = 96003-2] Goal Plan of Care Note [code = 12165-1] Goal Plan of Care Note [code = 76490-1] Goal Plan of Care Note [code = 75034-9] Goal Plan of Care Note [code = 66187-1] Goal Plan of Care Note [code = 82135-0] Goal Plan of Care Note [code = 82062-4] Goal Plan of Care Note [code = 58173-1] Goal Plan of Care Note [code = 46006-0] Goal Plan of Care Note [code = 66387-6] Goal Plan of Care Note [code = 40463-5] Goal Plan of Care Note [code = 16684-3] Goal Plan of Care Note [code = 07148-1] Goal Plan of Care Note [code = 75512-3] Goal Plan of Care Note [code = 88900-4] Goal Plan of Care Note [code = 31792-6] Goal Plan of Care Note [code = 41061-0] Goal Plan of Care Note [code = 13008-9] Goal Plan of Care Note [code = 28241-8] Goal Plan of Care Note [code = 28657-4] Goal Plan of Care Note [code = 71792-3] Goal Plan of Care Note [code = 73172-2] Goal Plan of Care Note [code = 35807-2] Goal Plan of Care Note [code = 13379-7] Goal Plan of Care Note [code = 69475-6] Goal Plan of Care Note [code = 73985-0] Goal Plan of Care Note [code = 09549-8] Goal Plan of Care Note [code = 77005-5] Goal Plan of Care Note [code = 16938-3] Goal Plan of Care Note [code = 43992-9] Goal Plan of Care Note [code = 45547-4] Goal Plan of Care Note [code = 44333-9] Goal Plan of Care Note [code = 97116-5] Goal Plan of Care Note [code = 25947-6] Goal Plan of Care Note [code = 40675-7] Goal Plan of Care Note [code = 12398-1] Goal Plan of Care Note [code = 59725-5] Goal Plan of Care Note [code = 91196-7] Goal Plan of Care Note [code = 67969-6] Goal Plan of Care Note [code = 45378-6] Goal Plan of Care Note [code = 67629-8] Goal Plan of Care Note [code = 51525-8] Goal Plan of Care Note [code = 48924-5] Goal Plan of Care Note [code = 09545-7] Goal Plan of Care Note [code = 08492-1] Goal Plan of Care Note [code = 45037-4] Goal Plan of Care Note [code = 96328-5] Goal Plan of Care Note [code = 54934-8] Goal Plan of Care Note [code = 42498-4] Goal Plan of Care Note [code = 29464-2] Goal Plan of Care Note [code = 59449-3] Goal Plan of Care Note [code = 35686-0] Goal Plan of Care Note [code = 94673-5] Goal Plan of Care Note [code = 60322-2] Goal Plan of Care Note [code = 36367-3] Goal Plan of Care Note [code = 57948-5] Goal Plan of Care Note [code = 93918-5] Goal Plan of Care Note [code = 95501-2] Goal Plan of Care Note [code = 27064-3] Goal Plan of Care Note [code = 35708-5] Goal Plan of Care Note [code = 88823-2] Goal Plan of Care Note [code = 18760-6] Goal Plan of Care Note [code = 73818-2] Goal Plan of Care Note [code = 14368-6] Goal Plan of Care Note [code = 18112-3] Goal Plan of Care Note [code = 24709-0] Goal Plan of Care Note [code = 77388-4] Goal Plan of Care Note [code = 17234-2] Goal Plan of Care Note [code = 60768-7] Goal Plan of Care Note [code = 64750-1] Goal Plan of Care Note [code = 54397-9] Goal Plan of Care Note [code = 14471-1] Goal Plan of Care Note [code = 87944-7] Goal Plan of Care Note [code = 11944-1] Goal Plan of Care Note [code = 47496-6] Goal Plan of Care Note [code = 57901-3] Goal Plan of Care Note [code = 58505-5] Goal Plan of Care Note [code = 26458-3] Goal Plan of Care Note [code = 48428-5] Goal Plan of Care Note [code = 05225-7] Goal Plan of Care Note [code = 32411-3] Goal Plan of Care Note [code = 04068-5] Goal Plan of Care Note [code = 94260-9] Goal Plan of Care Note [code = 19993-7] Goal Plan of Care Note [code = 19514-1] Goal Plan of Care Note [code = 10245-4] Goal Plan of Care Note [code = 63564-4] Goal Plan of Care Note [code = 86544-9] Goal Plan of Care Note [code = 94317-4] Goal Plan of Care Note [code = 65751-1] Goal Plan of Care Note [code = 23325-9] Goal Plan of Care Note [code = 36238-8] Goal Plan of Care Note [code = 27490-3] Goal Plan of Care Note [code = 25183-7] Goal Plan of Care Note [code = 05429-9] Goal Plan of Care Note [code = 53407-8] Goal Plan of Care Note [code = 54128-9] Goal Plan of Care Note [code = 97994-7] Goal Plan of Care Note [code = 97271-8] Goal Plan of Care Note [code = 79713-8] Goal Plan of Care Note [code = 89041-6] Goal Plan of Care Note [code = 14527-5] Goal Plan of Care Note [code = 14756-6] Goal Plan of Care Note [code = 56064-5] Goal Plan of Care Note [code = 48487-5] Goal Plan of Care Note [code = 42684-5] Goal Plan of Care Note [code = 15784-8] Goal Plan of Care Note [code = 75698-9] Goal Plan of Care Note [code = 97364-6] Goal Plan of Care Note [code = 67302-9] Goal Plan of Care Note [code = 67938-7] Goal Plan of Care Note [code = 72505-9] Goal Plan of Care Note [code = 74504-7] Goal Plan of Care Note [code = 37807-4] Goal Plan of Care Note [code = 60850-9] Goal Plan of Care Note [code = 36793-5] Goal Plan of Care Note [code = 63573-8] Goal Plan of Care Note [code = 53320-5] Goal Plan of Care Note [code = 03426-0] Goal Plan of Care Note [code = 70149-8] Goal Plan of Care Note [code = 11127-3] Goal Plan of Care Note [code = 31186-1] Goal Plan of Care Note [code = 17633-8] Goal Plan of Care Note [code = 64378-6] Goal Plan of Care Note [code = 37040-6] Goal Plan of Care Note [code = 68804-9] Goal Plan of Care Note [code = 58841-6] Goal Plan of Care Note [code = 26236-8] Goal Plan of Care Note [code = 13720-3] Goal Plan of Care Note [code = 95679-6] Goal Plan of Care Note [code = 58628-3] Goal Plan of Care Note [code = 04335-1] Goal Plan of Care Note [code = 81371-9] Goal Plan of Care Note [code = 24084-5] Goal Plan of Care Note [code = 31646-2] Goal Plan of Care Note [code = 59475-3] Goal Plan of Care Note [code = 16061-2] Goal Plan of Care Note [code = 16359-4] Goal Plan of Care Note [code = 66015-8] Goal Plan of Care Note [code = 49665-4] Goal Plan of Care Note [code = 45854-9] Goal Plan of Care Note [code = 89486-3] Goal Plan of Care Note [code = 41359-1] Goal Plan of Care Note [code = 83523-3] Goal Plan of Care Note [code = 77035-0] Goal Plan of Care Note [code = 79910-2] Goal Plan of Care Note [code = 56873-9] Goal Plan of Care Note [code = 53050-7] Goal Plan of Care Note [code = 48933-2] Goal Plan of Care Note [code = 39883-9] Goal Plan of Care Note [code = 18259-9] Goal Plan of Care Note [code = 43881-6] Goal Plan of Care Note [code = 01381-0] Goal Plan of Care Note [code = 40118-4] Goal Plan of Care Note [code = 77280-5] Goal Plan of Care Note [code = 22244-7] Goal Plan of Care Note [code = 31756-4] Goal Plan of Care Note [code = 22835-8] Goal Plan of Care Note [code = 41795-5] Goal Plan of Care Note [code = 03212-3] Goal Plan of Care Note [code = 25099-2] Goal Plan of Care Note [code = 45697-7] Goal Plan of Care Note [code = 36590-0] Goal Plan of Care Note [code = 41289-3] Goal Plan of Care Note [code = 55146-2] Goal Plan of Care Note [code = 48908-7] Goal Plan of Care Note [code = 63152-4] Goal Plan of Care Note [code = 22845-7] Goal Plan of Care Note [code = 99475-5] Goal Plan of Care Note [code = 06184-0] Goal Plan of Care Note [code = 15825-9] Goal Plan of Care Note [code = 36172-7] Goal Plan of Care Note [code = 30474-3] Goal Plan of Care Note [code = 06911-2] Goal Plan of Care Note [code = 34463-9] Goal Plan of Care Note [code = 79530-1] Goal Plan of Care Note [code = 05598-5] Goal Plan of Care Note [code = 75428-3] Goal Plan of Care Note [code = 34200-0] Goal Plan of Care Note [code = 94667-1] Goal Plan of Care Note [code = 21100-9] Goal Plan of Care Note [code = 37818-3] Goal Plan of Care Note [code = 97197-2] Goal Plan of Care Note [code = 57205-0] Goal Plan of Care Note [code = 26813-2] Goal Plan of Care Note [code = 38350-4] Goal Plan of Care Note [code = 08178-9] Goal Plan of Care Note [code = 38640-3] Goal Plan of Care Note [code = 43826-3] Goal Plan of Care Note [code = 86581-3] Goal Plan of Care Note [code = 35391-4] Goal Plan of Care Note [code = 45918-6] Goal Plan of Care Note [code = 55595-6] Goal Plan of Care Note [code = 98743-6] Goal Plan of Care Note [code = 51675-4] Goal Plan of Care Note [code = 15875-2] Goal Plan of Care Note [code = 84365-0] Goal Plan of Care Note [code = 94443-2] Goal Plan of Care Note [code = 02156-5] Goal Plan of Care Note [code = 16732-2] Goal Plan of Care Note [code = 19978-7] Goal Plan of Care Note [code = 15373-3] Goal Plan of Care Note [code = 96219-3] Goal Plan of Care Note [code = 67570-3] Goal Plan of Care Note [code = 04726-3] Goal Plan of Care Note [code = 08509-7] Goal Plan of Care Note [code = 41303-9] Goal Plan of Care Note [code = 17415-6] Goal Plan of Care Note [code = 20399-9] Goal Plan of Care Note [code = 15329-0] Goal Plan of Care Note [code = 63887-9] Goal Plan of Care Note [code = 05618-5] Goal Plan of Care Note [code = 49579-9] Goal Plan of Care Note [code = 01816-1] Goal Plan of Care Note [code = 15320-0] Goal Plan of Care Note [code = 40766-9] Goal Plan of Care Note [code = 03836-0] Goal Plan of Care Note [code = 93663-5] Goal Plan of Care Note [code = 71586-5] Goal Plan of Care Note [code = 84415-5] Goal Plan of Care Note [code = 04592-0] Goal Plan of Care Note [code = 07302-3] Goal Plan of Care Note [code = 24486-1] Goal Plan of Care Note [code = 89317-0] Goal Plan of Care Note [code = 05912-2] Goal Plan of Care Note [code = 78730-0] Goal Plan of Care Note [code = 90046-7] Goal Plan of Care Note [code = 54605-2] Goal Plan of Care Note [code = 29166-8] Goal Plan of Care Note [code = 08865-5] Goal Plan of Care Note [code = 32191-1] Goal Plan of Care Note [code = 82126-9] Goal Plan of Care Note [code = 35829-5] Goal Plan of Care Note [code = 36241-3] Goal Plan of Care Note [code = 63189-0] Goal Plan of Care Note [code = 89008-3] Goal Plan of Care Note [code = 82724-4] Goal Plan of Care Note [code = 35018-6] Goal Plan of Care Note [code = 41038-2] Goal Plan of Care Note [code = 60692-3] Goal Plan of Care Note [code = 71693-0] Goal Plan of Care Note [code = 12382-4] Goal Plan of Care Note [code = 30466-8] Goal Plan of Care Note [code = 62103-5] Goal Plan of Care Note [code = 51328-8] Goal Plan of Care Note [code = 25890-8] Goal Plan of Care Note [code = 95227-2] Goal Plan of Care Note [code = 06751-5] Goal Plan of Care Note [code = 58279-4] Goal Plan of Care Note [code = 93125-4] Goal Plan of Care Note [code = 43142-3] Goal Plan of Care Note [code = 93373-6] Goal Plan of Care Note [code = 99381-0] Goal Plan of Care Note [code = 04007-1] Goal Plan of Care Note [code = 39363-0] Goal Plan of Care Note [code = 38716-7] Goal Plan of Care Note [code = 30029-4] Goal Plan of Care Note [code = 97396-2] Goal Plan of Care Note [code = 40025-6] Goal Plan of Care Note [code = 93332-3] Goal Plan of Care Note [code = 47271-1] Goal Plan of Care Note [code = 89454-1] Goal Plan of Care Note [code = 58101-7] Goal Plan of Care Note [code = 97650-4] Goal Plan of Care Note [code = 79437-2] Goal Plan of Care Note [code = 92227-0] Goal Plan of Care Note [code = 52360-0] Goal Plan of Care Note [code = 37510-3] Goal Plan of Care Note [code = 34415-6] Goal Plan of Care Note [code = 94176-4] Goal Plan of Care Note [code = 71217-9] Goal Plan of Care Note [code = 55721-5] Goal Plan of Care Note [code = 94556-0] Goal Plan of Care Note [code = 86671-0] Goal Plan of Care Note [code = 59458-9] Goal Plan of Care Note [code = 55430-0] Goal Plan of Care Note [code = 33744-5] Goal Plan of Care Note [code = 29008-3] Goal Plan of Care Note [code = 23065-7] Goal Plan of Care Note [code = 03817-7] Goal Plan of Care Note [code = 80505-2] Goal Plan of Care Note [code = 04516-2] Goal Plan of Care Note [code = 04142-5] Goal Plan of Care Note [code = 53322-8] Goal Plan of Care Note [code = 64292-0] Goal Plan of Care Note [code = 17625-1] Goal Plan of Care Note [code = 36776-0] Goal Plan of Care Note [code = 85556-4] Goal Plan of Care Note [code = 75446-3] Goal Plan of Care Note [code = 33394-6] Goal Plan of Care Note [code = 20826-3] Goal Plan of Care Note [code = 68042-6] Goal Plan of Care Note [code = 69860-3] Goal Plan of Care Note [code = 13003-2] Goal Plan of Care Note [code = 13826-1] Goal Plan of Care Note [code = 01445-5] Goal Plan of Care Note [code = 75970-2] Goal Plan of Care Note [code = 70860-4] Goal Plan of Care Note [code = 74597-7] Goal Plan of Care Note [code = 65355-8] Goal Plan of Care Note [code = 49872-9] Goal Plan of Care Note [code = 50808-9] Goal Plan of Care Note [code = 04486-0] Goal Plan of Care Note [code = 49302-7] Goal Plan of Care Note [code = 27517-4] Goal Plan of Care Note [code = 38173-7] Goal Plan of Care Note [code = 66775-6] Goal Plan of Care Note [code = 98740-0] Goal Plan of Care Note [code = 64169-4] Goal Plan of Care Note [code = 81663-8] Goal Plan of Care Note [code = 60611-4] Goal Plan of Care Note [code = 16071-4] Goal Plan of Care Note [code = 81665-1] Goal Plan of Care Note [code = 78081-5] Goal Plan of Care Note [code = 11130-1] Goal Plan of Care Note [code = 82314-3] Goal Plan of Care Note [code = 98261-9] Goal Plan of Care Note [code = 95944-1] Goal Plan of Care Note [code = 65155-0] Goal Plan of Care Note [code = 71333-3] Encounters Start End Encounter Admission Attending Care Care Encounter Source Date/Time Date/Time Type Type Clinicians Facility Department ID 2022-04-01 Outpatient 3 [id number] [facility] RE[facility] [id number] [facility] 15:21:07 [facility] [place] 2022-03-31 Outpatient 3 [id number] [facility] REF [id number] [facility] 14:48:02 [facility] [place] 2022-03-25 Outpatient 3 [id number] [facility] REF [id number] [facility] 10:48:24 [facility] [place] 2021-02-05 Outpatient BHARAT, [facility] Surgery [id number] [facility] 05:27:44 IRMA 2021-02-04 Outpatient ALAM, [facility] Surgery [id number] [facility] 23:01:57 SYLVAIN 2022-06-09 2022-06-09 Outpatient Rayne FERNANDEZ [facility] [id number] Univers 13:30:00 13:30:00 JOSELUIS ity [facility] 2022-05-28 2022-05-28 Outpatient CASS ODELL [id number] 023 [place] 09:36:19 09:36:19 0126 F Martínez 2022-05-28 2022-05-28 Orders Doctor DECKER 1.2.840.114 [id number] Univers 00:00:00 00:00:00 Only Unassigned, RONNY 350.1.13.10 ity of [place] [facility] 4.2.7.2.686 Tony as [phone] [address] 2022-04-23 2022-04-23 Outpatient CASS ODELL 96814-4 022 [place] 11:12:51 11:12:51 1222 F Martínez 2022-04-23 2022-04-23 Outpatient [id number]- [id number] 976mt4-7 00:00:00 00:00:00 Visit 5q80-334u c45-381i-2 -8818-496 818-953651 8117958s0 6681f3 2022-04-22 2022-04-22 Outpatient SFA SFA [id number] 022 [place] 11:56:37 11:56:37 1221 F Martínez 2022-04-21 2022-04-21 Outpatient NEW MICHAEL ENCCLR ENCCLR [id number] EN[facility]LR 00:00:00 00:00:00 ADMISSION JACINTO MARTIN 2022-04-20 2022-04-20 Outpatient SFA SFA 27062-2 022 [place] 13:44:26 13:44:26 1219 F Martínez 2022-04-20 2022-04-20 Outpatient [id number]- [id number] [id number]-2 00:00:00 00:00:00 Visit 868d-4ba4 68d-4ba4-8 -857d-890 57d-8900b2 1f101975k 20395f 2022-04-07 2022-04-17 Inpatient 3 Michael-San [facility] OTH 5814 [facility] 18:25:00 16:40:00 Silvino rodriguez [facility] itation Tianna ndiaye 2022-03-17 2022-03-17 Outpatient SFA SFA [id number] 022 [place] 09:09:19 09:09:19 1115 F Martínez 2022-03-17 2022-03-17 Outpatient [id number]- [id number] mj092g-d 00:00:00 00:00:00 Visit r175-2617 106-4636-b -t0ik-537 5be-547ae2 ty963wsv2 86dad8 2022-03-04 2022-03-04 Outpatient SFA SFA 64074-6 022 [place] 13:56:07 13:56:07 1102 F Martínez 2022-03-04 2022-03-04 Outpatient s51149pr- [id number] c2 7246be-9 00:00:00 00:00:00 Visit 9529-42f7 529-42f7-a -zw56-lm1 v41-zh076j 11y7sv0q8 5cb7c5 2022-02-24 2022-02-24 Abstract Eufemia [facility] [id number] 00:00:00 00:00:00 [facility] 2022-02-24 2022-02-24 Abstract Eufemia [facility] [id number] 00:00:00 00:00:00 [facility] 2022-02-17 2022-02-17 Outpatient [facility] [id number] 022 [place] 14:09:24 14:09:24 1018 F Martínez 2022-02-17 2022-02-17 Outpatient 43xb560v- [id number] su156d-p 00:00:00 00:00:00 Visit s64t-67g3 39e-47c5-b -b9b4-0yf 5o6-5zyg6l y3y388501 202339 1552-10-04 2022-02-03 Outpatient [facility] 28508-1 022 [place] 13:41:10 13:41:10 1004 F Martínez 2022-02-03 2022-02-03 Outpatient [id number] 747498-8 00:00:00 00:00:00 Visit 4378-45d4 378-45d4-b -vk1f-496 e4l-7665u7 5a12793gi 0427fc 2021-12-23 2021-12-23 Telephone KAREN Fernandez 1.2.153.489 [id number] Univers 00:00:00 00:00:00 Critical access hospital 350.1.13.10 it y of [place] 4.2.7.2.686 Tony as CAR?BLEA [phone] [address] MEDICAL OFFICE BUILDING 2021-12-04 2021-12-04 Outpatient [id number]- [id number] 565z60-0 00:00:00 00:00:00 Visit 70f5-8w55 5p3-3f54-3 -45w8-l8a 4s9-h5hxg3 cv4668e83 255c45 2021-12-02 2021-12-02 Outpatient [facility] [id number] Univers 16:00:00 16:00:00 [facility] 2021-12-02 2021-12-02 Library Page Lab, Gen - Wander [facility] 1.2.840.1 14 [id number] Univers 15:15:00 15:16:31 Visit Khoa Critical access hospital 350.1.13.10 ity of [place] 4.2.7.2.686 Tony as CAR?BLEA [id number] [facility] [address] [facility] OFFICE [facility] 2021-12-02 2021-12-02 Outpatient [facility] [id number] Univers 14:30:00 14:57:05 [facility] 2021-12-02 2021-12-[address] [facility] 1.2.840.114 [id number] Univers 14:30:00 14:57:05 Visit Critical access hospital 350.1.13.10 it y of [place] 4.2.7.2.686 Tony as CAR?BLEA [id number] [address] OFFICE [facility] 2021-12-02 2021-12-02 Outpatient [id number]- [id number] 3x2579-6 00:00:00 00:00:00 Visit 8ls5-4775 db2-4873-a -q4y2-066 9j2-1812g8 0u43b81w4 1f79f2 2021-11-26 2021-11-26 Outpatient [facility] [id number] Univers 14:00:00 14:00:00 [facility] 2021-10-21 2021-10-21 Outpatient R [facility] [id number] Univers 14:30:00 14:30:00 [facility] 2021-07-29 2021-07-[address] [facility] 1.2.417.452 [id number] Univers 00:00:00 00:00:00 [facility] Qustodian 350.1.13.10 it y of [place] 4.2.7.2.686 Tony as CAR?BLEA [id number] [address] OFFICE [facility] 2021-07-15 2021-07-15 Outpatient R FERNANDEZ, [facility] [id number] Univers 09:30:00 10:12:40 WENTDAVID ity of [facility] 2021-07-15 2021-07-15 Office Fernandez, [facility] 1.2.840.114 [id number] Univers 09:30:00 10:12:40 Visit Critical access hospital 350.1.13.10 it y of [place] 4.2.7.2.686 Tony as CAR?BLEA [phone] [address] MEDICAL OFFICE BUILDING 2021-03-06 2021-03-06 Hospital Radiology [facility] 1.2.840.114 [id number] Univers 12:24:35 23:59:00 Encounter [place] 350.1.13.10 it[place] [id number] [address] 2021-03-06 2021-03-06 Hospital Radiology [facility] 1.2.840.114 [id number] Univers 12:23:40 12:23:40 Encounter [place] 350.1.13.10 it[place] [id number] [address] 2021-03-06 2021-03-06 Outpatient R RADIOLOGY [facility] [id number] Univers 12:23:40 12:23:40 ity of [facility] 2021-03-06 2021-03-06 Outpatient R RADIOLOGY [facility] [id number] Univers 12:23:40 12:23:40 ity of [facility] 2021-02-27 2021-02-27 Outpatient R RADIOLOGY [facility] [id number] Univers 00:00:00 00:00:00 ity of [facility] 2021-02-27 2021-02-27 Outpatient R RADIOLOGY [facility] [id number] Univers 00:00:00 00:00:00 ity of [facility] 2021-02-13 2021-02-[address] [facility] [id number] [facility] 00:00:00 00:00:00 ion [facility] 2021-02-03 2021-02-03 Orders Doctor BRIANNE 1.2.840.114 [id number] Univers 00:00:00 00:00:00 Only Unassigned, RONNY 350.1.13.10 [facility] [place] [facility] 4.2.7.2.686 Tony as [id number] [address] 2020-11-22 2020-11-22 Outpatient [facility] [id number] Univers 13:00:00 13:00:00 SAM dave [facility] 2020-10-08 2020-10-[address] [facility] 1.2.840.114 [id number] 00:00:00 00:00:00 Sam Doherty 350.1.13.10 [place] 4.2.7.2.686 Professio [id number] [facility] 220 [facility] 2020-10-07 2020-10-07 Orders Doctor BRIANNE 1.2.840.114 [id number] 00:00:00 00:00:00 Only Unassigned, RONNY 350.1.13.10 [facility] 4.2.7.2.686 [id number] [facility] 2020-10-04 2020-10-04 Outpatient [facility] [id number] Univers 14:00:00 14:00:00 SAM [facility] 2020-09-19 2020-09-19 Outpatient [facility] [id number] Univers 11:00:00 11:00:00 DEAN jose [facility] 2020-09-10 2020-09-10 Outpatient [facility] [id number] Univers 10:00:00 10:00:00 DEAN sheffield [facility] 2020-08-20 2020-08-[address] [facility] 1.2.840.114 [id number] 13:15:09 13:42:21 Visit Dean Doherty 350.1.13.10 [place] 4.2.7.2.686 Professio [id number] nal 059 [facility] 2020-08-20 2020-08-20 Outpatient [facility] [id number] Univers 13:20:00 13:20:00 DEAN ity o f [facility] 2019-12-14 2019-12-14 Outpatient [facility] [id number] [facility] 00:00:00 00:00:00 2019-11-14 2019-11-14 Outpatient NAKITA GIPSON, [facility] [id number] [facility] 00:00:00 00:00:00 HUNTER 2019-11-14 2019-11-14 Outpatient [facility] [id number] [facility] 00:00:00 00:00:00 2019-11-14 2019-11-14 Outpatient EL [facility] [id number] [facility] 00:00:00 00:00:00 2019-10-31 2019-10-31 Outpatient [facility] [id number] [facility] 00:00:00 00:00:00 2019-10-31 2019-10-31 Outpatient SLEH [facility] [id number] [facility] 00:00:00 00:00:00 2019-10-17 2019-10-17 Outpatient [facility] [id number] [facility] 00:00:00 00:00:00 2019-10-17 2019-10-17 Outpatient EL [facility] [id number] [facility] 00:00:00 00:00:00 2019-07-13 2019-07-13 Outpatient [facility] [id number] 2-2 [facility] 00:00:00 00:00:00 [id number] 2019-06-15 2019-06-15 Outpatient [facility] [id number] 2-2 [facility] 00:00:00 00:00:00 [id number] Results Test Description Test Time Test Comments Results Result Comments Source TSH, THIRD GENERATION 2022-04-23 06:32:46 Test Item Value Reference Range Interpretation Comme nts TSH, THIRD GENERATION (test code = 2821) >100.000 UIU/ML 0.400-4.10 0 H PSA, [id number] 06:32:46 Test Item Value Reference Range Interpretation Comments PSA, TOTAL 0.57 NG/ML See_Comment NOTE: Methodol ogy is Ezio (test code = Radhika Electroch emiluminescence 2606) Immunoassay tra ceable to WHO reference stand rea 96/760. UNLESS OTHERWIS E INDICATED, ALL TESTING PERFORM ED ATCLINICAL PATHOLOGY LABOR [employer] [facility]. [address] [place] [address] LABORATORY DIRE CTOR: LATOYA MCCALL M.D. CLIA NUMBER [id number] [place]. [id number] [A utomated message] The sy stem which generated this result transmitted ref erence range: <=4.00. The ref erence range was not used to int erpret this result as ryne l/abnormal. COMPREHENSIVE METABOLIC [id number] 04:57:27 Test Item Value Reference Range Interpretation Comments GLUCOSE (test code = 204 MG/DL 70-99 H 2216) BUN (test code = 17 MG/DL 6-20 2207) CREATININE (test 5.58 MG/DL 0.80-1.40 H code = 221) eGFR (2020 CKD-EPI) 11 ML/MIN/1.73 >60 L (test code = 80987) CALC BUN/CREAT (test 3 RATIO 6-28 L code = 2235) SODIUM (test code = 143 MEQ/L 132-613 4205) POTASSIUM (test code 3.8 MEQ/L 3.5-5.4 = 2227) CHLORIDE (test code 98 MEQ/L 95-107 = 221) CARBON DIOXIDE (test 29 MEQ/L 19-31 code [...] code = 15 U/L 5-50 2218) HEMOGLOBIN [id number] 03:24:27 Test Item Value Reference Range Interpretation Comments HEMOGLOBIN A1c (test code = 31925) 5.8 % 4.2-5.6 H CBC W/AUTO DIFF WITH [id number] 03:19:43 Test Item Value Reference Range Interpretation [...] RBCS 0.00 K/UL 0.00-0.11 (test code = 75415) CBC W/AUTO [id number] 00:00:00 Test Item Value Reference Range Interpretation [...] NUCLEATED RBCS (test code = 0.00 K/UL 58597) CBC W/AUTO [id number] 00:00:00 Test Item Value Reference Range Interpretation [...] NUCLEATED RBCS (test code = 0.00 K/UL 27225) CBC W/AUTO [id number] 00:00:00 Test Item Value Reference Range Interpretation [...] NUCLEATED RBCS (test code = 0.00 K/UL 70047) HEMOGLOBIN [id number] 00:00:00 Test Item Value Reference Range Interpretation Comments HEMOGLOBIN A1c (test code = 87950) 5.8 % HEMOGLOBIN [id number] 00:00:00 Test Item Value Reference Range Interpretation Comments HEMOGLOBIN A1c (test code = 17197) 5.8 % HEMOGLOBIN [id number] 00:00:00 Test Item Value Reference Range Interpretation Comments HEMOGLOBIN A1c (test code = 30323) 5.8 % COMPREHENSIVE METABOLIC [id number] 00:00:00 Test Item Value Reference Range Interpretation Comments GLUCOSE (test code = 2217) 204 MG/DL BUN (test code = 2208) 17 MG/DL CREATININE (test code = 2214) 5.58 MG/DL eGFR (2020 CKD-EPI) (test code 11 ML/MIN/1.73 = 13473) CALC BUN/CREAT (test code = 3 RATIO [...] code = 2219) 15 U/L COMPREHENSIVE METABOLIC [id number] 00:00:00 Test Item Value Reference Range Interpretation Comments GLUCOSE (test code = 2217) 204 MG/DL BUN (test code = 2208) 17 MG/DL CREATININE (test code = 2214) 5.58 MG/DL eGFR (2020 CKD-EPI) (test code 11 ML/MIN/1.73 = 10056) CALC BUN/CREAT (test code = 3 RATIO [...] code = 2219) 15 U/L TSH, THIRD [id number] 00:00:00 Test Item Value Reference Range Interpretation Comments TSH, THIRD GENERATION (test >100.000 UIU/ML code = 2821) TSH, THIRD [id number] 00:00:00 Test Item Value Reference Range Interpretation Comments TSH, THIRD GENERATION (test >100.000 UIU/ML code = 2821) TSH, THIRD [id number] 00:00:00 Test Item Value Reference Range Interpretation Comments TSH, THIRD GENERATION (test >100.000 UIU/ML code = 2821) PSA, [id number] 00:00:00 Test Item Value Reference Range Interpretation Comments PSA, TOTAL (test code = 2606) 0.57 NG/ML PSA, [id number] 00:00:00 Test Item Value Reference Range Interpretation Comments PSA, TOTAL (test code = 2606) 0.57 NG/ML PSA, [id number] 00:00:00 Test Item Value Reference Range Interpretation Comments PSA, TOTAL (test code = 2606) 0.57 NG/ML CBC W/AUTO DIFF WITH [id number] 09:42:23 Test Item Value Reference Range Interpretation [...] RBCS 0.00 K/UL 0.00-0.11 (test code = 47547) HEMOGLOBIN [id number] 09:27:39 Test Item Value Reference Range Interpretation Comments HEMOGLOBIN A1c (test code = 45375) 6.2 % 4.2-5.6 H TSH, THIRD [id number] 06:43:39 Test Item Value Reference Range Interpretation Comments TSH, THIRD GENERATION (test 82.000 UIU/ML 0.400-4.100 H code = 2821) HIV 1/2 4TH GEN, RFLX [id number] 05:21:13 Test Item Value Reference Range Interpretation Comments HIV 1/2 4TH GEN, RFLX CONF (test NON-REACTIVE NON-REACTIVE code = 3514) HEPATITIS PANEL, [id number] 05:21:13 Test Item Value Reference Range Interpretation Comments HEPATITIS A IgM (test NON-REACTIVE NON-REACTIVE code = 90602) HEPATITIS B CORE IgM NON-REACTIVE NON-REACTIVE (test code = 4644) HEPATITIS B SURF AG NON-REACTIVE NON-REACTIVE (test code = 2739) HEPATITIS C ANTIBODY NON-REACTIVE NON-REACTIVE (test code = 4675) INTERPRETATION (NOTE) Hepatitis A HEPATITIS A: (test serology shows no code = 2552) evidence of acu te hepatitis A. INTERPRETATION (NOTE) Hepatitis B HEPATITIS B: (test serology shows no code = 88558) evidence of ac tanana hepatitis B and no indication of exposure to hepatitis B vir us in the previous si xto eight months. INTERPRETATION (NOTE) Hepatitis C HEPATITIS C: (test serology shows no code = 59750) evidence of ex posure to hepatitisC v irus at this time. I t can take up to 12 m onths after exposure tothe hepatitis C vir us for antibodies to become detectab le in the blood in ce rtain patients. UNLES S OTHERWISE INDIC ATED, ALL TESTING PERFORMED [facility]. [address] [place] [id number] [place] [address] DIRECTOR: LATOYA MCCALL M.D. [facility] NUMBER [id number] [place] [id number] LIPID [id number] 03:30:59 Test Item Value Reference Range Interpretation [...] MOREINFORMATION , SEE CLIENT ANNOUNCE MENT AT [email or web address] CalcLDL-C RISK RATIO LDL/HDL (NOTE) RATIO <3.55 UNABLE T O CALCULATE (test code = 223) COMPREHENSIVE METABOLIC [id number] 03:30:59 Test Item Value Reference Range Interpretation Comments GLUCOSE (test code = 117 MG/DL 70-99 H 2216) BUN (test code = 54 MG/DL 6-20 H 2207) CREATININE (test 11.27 MG/DL 0.80-1.40 H code = 221) eGFR (2020 CKD-EPI) 5 ML/MIN/1.73 >60 L (test code = 04749) CALC BUN/CREAT (test 5 RATIO 6-28 L code = 2235) SODIUM (test code = 139 MEQ/L [phone]) POTASSIUM (test code 4.2 MEQ/L 3.5-5.4 = [...] (test code = 8 U/L 5-50 2218) HEMOGLOBIN [id number] 00:00:00 Test Item Value Reference Range Interpretation Comments HEMOGLOBIN A1c (test code = 67488) 6.2 % HEMOGLOBIN [id number] 00:00:00 Test Item Value Reference Range Interpretation Comments HEMOGLOBIN A1c (test code = 88263) 6.2 % LIPID [id number] 00:00:00 Test Item Value Reference Range Interpretation Comments CHOLESTEROL (test code = 2210) 196 MG/DL TRIGLYCERIDES (test code = 2232) 486 MG/DL HDL CHOLESTEROL (test code = 44 MG/DL 2220) CALC LDL CHOL (test code = 2237) (NOTE) MG/DL RISK RATIO LDL/HDL (test code = (NOTE) RATIO 2238) LIPID [id number] 00:00:00 Test Item Value Reference Range Interpretation Comments CHOLESTEROL (test code = 2210) 196 MG/DL TRIGLYCERIDES (test code = 2232) 486 MG/DL HDL CHOLESTEROL (test code = 44 MG/DL 2220) CALC LDL CHOL (test code = 2237) (NOTE) MG/DL RISK RATIO LDL/HDL (test code = (NOTE) RATIO 2238) COMPREHENSIVE METABOLIC [id number] 00:00:00 Test Item Value Reference Range Interpretation Comments GLUCOSE (test code = 2217) 117 MG/DL BUN (test code = 2208) 54 MG/DL CREATININE (test code = 2214) 11.27 MG/DL eGFR (2020 CKD-EPI) (test code 5 ML/MIN/1.73 = 55734) CALC BUN/CREAT (test code = 5 RATIO [...] code = 2219) 8 U/L COMPREHENSIVE METABOLIC [id number] 00:00:00 Test Item Value Reference Range Interpretation Comments GLUCOSE (test code = 2217) 117 MG/DL BUN (test code = 2208) 54 MG/DL CREATININE (test code = 2214) 11.27 MG/DL eGFR (2020 CKD-EPI) (test code 5 ML/MIN/1.73 = 75887) CALC BUN/CREAT (test code = 5 RATIO [...] ALT (test code = 2219) 8 U/L [id number] 00:00:00 Test Item Value Reference Range Interpretation Comments TSH, THIRD GENERATION (test 82.000 UIU/ML code = 2821) [id number] 00:00:00 Test Item Value Reference Range Interpretation Comments TSH, THIRD GENERATION (test 82.000 UIU/ML code = 2821) [id number] 00:00:00 Test Item Value Reference Range Interpretation Comments TSH, THIRD GENERATION (test 82.000 UIU/ML code = 2821) HIV AB/AG COMBO RFLX [id number] 00:00:00 Test Item Value Reference Range Interpretation Comments HIV 1/2 4TH GEN, RFLX CONF (test NON-REACTIVE code = 3514) HIV AB/AG COMBO RFLX [id number] 00:00:00 Test Item Value Reference Range Interpretation Comments HIV 1/2 4TH GEN, RFLX CONF (test NON-REACTIVE code = 3514) ACUTE HEPATITIS [id number] 00:00:00 Test Item Value Reference Range Interpretation Comments HEPATITIS A IgM (test code = NON-REACTIVE 77775) HEPATITIS B CORE IgM (test code NON-REACTIVE = 4644) HEPATITIS B SURF AG (test code = NON-REACTIVE 2739) HEPATITIS C ANTIBODY (test code NON-REACTIVE = 4675) INTERPRETATION HEPATITIS A: (NOTE) (test code = 2552) INTERPRETATION HEPATITIS B: (NOTE) (test code = 31067) INTERPRETATION HEPATITIS C: (NOTE) (test code = 91278) ACUTE HEPATITIS [id number] 00:00:00 Test Item Value Reference Range Interpretation Comments HEPATITIS A IgM (test code = NON-REACTIVE 34355) HEPATITIS B CORE IgM (test code NON-REACTIVE = 4644) HEPATITIS B SURF AG (test code = NON-REACTIVE 2739) HEPATITIS C ANTIBODY (test code NON-REACTIVE = 4675) INTERPRETATION HEPATITIS A: (NOTE) (test code = 2552) INTERPRETATION HEPATITIS B: (NOTE) (test code = 47454) INTERPRETATION HEPATITIS C: (NOTE) (test code = 41747) CBC W/AUTO [id number] 00:00:00 Test Item Value Reference Range Interpretation [...] NUCLEATED RBCS (test code = 0.00 K/UL 52340) CBC W/AUTO [id number] 00:00:00 Test Item Value Reference Range Interpretation [...] NUCLEATED RBCS (test code = 0.00 K/UL 34887) CBC W/AUTO [id number] 00:00:00 Test Item Value Reference Range Interpretation [...] NUCLEATED RBCS (test code = 0.00 K/UL 56408) CBC W/AUTO [id number] 00:00:00 Test Item Value Reference Range Interpretation [...] NUCLEATED RBCS (test code = 0.00 K/UL 40326) CBC W/AUTO [id number] 00:00:00 Test Item Value Reference Range Interpretation [...] NUCLEATED RBCS (test code = 0.00 K/UL 81082) HEMOGLOBIN [id number] 00:00:00 Test Item Value Reference Range Interpretation Comments HEMOGLOBIN A1c (test code = 30188) 6.2 % HEMOGLOBIN [id number] 00:00:00 Test Item Value Reference Range Interpretation Comments HEMOGLOBIN A1c (test code = 07219) 6.2 % HEMOGLOBIN [id number] 00:00:00 Test Item Value Reference Range Interpretation Comments HEMOGLOBIN A1c (test code = 35489) 6.2 % LIPID [id number] 00:00:00 Test Item Value Reference Range Interpretation Comments CHOLESTEROL (test code = 2210) 196 MG/DL TRIGLYCERIDES (test code = 2232) 486 MG/DL HDL CHOLESTEROL (test code = 44 MG/DL 2220) CALC LDL CHOL (test code = 2237) (NOTE) MG/DL RISK RATIO LDL/HDL (test code = (NOTE) RATIO 2238) LIPID [id number] 00:00:00 Test Item Value Reference Range Interpretation Comments CHOLESTEROL (test code = 2210) 196 MG/DL TRIGLYCERIDES (test code = 2232) 486 MG/DL HDL CHOLESTEROL (test code = 44 MG/DL 2220) CALC LDL CHOL (test code = 2237) (NOTE) MG/DL RISK RATIO LDL/HDL (test code = (NOTE) RATIO 2238) COMPREHENSIVE METABOLIC [id number] 00:00:00 Test Item Value Reference Range Interpretation Comments GLUCOSE (test code = 2217) 117 MG/DL BUN (test code = 2208) 54 MG/DL CREATININE (test code = 2214) 11.27 MG/DL eGFR (2020 CKD-EPI) (test code 5 ML/MIN/1.73 = 08851) CALC BUN/CREAT (test code = 5 RATIO [...] code = 2219) 8 U/L COMPREHENSIVE METABOLIC [id number] 00:00:00 Test Item Value Reference Range Interpretation Comments GLUCOSE (test code = 2217) 117 MG/DL BUN (test code = 2208) 54 MG/DL CREATININE (test code = 2214) 11.27 MG/DL eGFR (2020 CKD-EPI) (test code 5 ML/MIN/1.73 = 08174) CALC BUN/CREAT (test code = 5 RATIO [...] ALT (test code = 2219) 8 U/L [id number] 00:00:00 Test Item Value Reference Range Interpretation Comments TSH, THIRD GENERATION (test 82.000 UIU/ML code = 2821) [id number] 00:00:00 Test Item Value Reference Range Interpretation Comments TSH, THIRD GENERATION (test 82.000 UIU/ML code = 2821) [id number] 00:00:00 Test Item Value Reference Range Interpretation Comments TSH, THIRD GENERATION (test 82.000 UIU/ML code = 2821) HIV AB/AG COMBO RFLX [id number] 00:00:00 Test Item Value Reference Range Interpretation Comments HIV 1/2 4TH GEN, RFLX CONF (test NON-REACTIVE code = 3514) HIV AB/AG COMBO RFLX [id number] 00:00:00 Test Item Value Reference Range Interpretation Comments HIV 1/2 4TH GEN, RFLX CONF (test NON-REACTIVE code = 3514) ACUTE HEPATITIS [id number] 00:00:00 Test Item Value Reference Range Interpretation Comments HEPATITIS A IgM (test code = NON-REACTIVE 72215) HEPATITIS B CORE IgM (test code NON-REACTIVE = 4644) HEPATITIS B SURF AG (test code = NON-REACTIVE 2739) HEPATITIS C ANTIBODY (test code NON-REACTIVE = 4675) INTERPRETATION HEPATITIS A: (NOTE) (test code = 2552) INTERPRETATION HEPATITIS B: (NOTE) (test code = 70896) INTERPRETATION HEPATITIS C: (NOTE) (test code = 88081) ACUTE HEPATITIS [id number] 00:00:00 Test Item Value Reference Range Interpretation Comments HEPATITIS A IgM (test code = NON-REACTIVE 49285) HEPATITIS B CORE IgM (test code NON-REACTIVE = 4644) HEPATITIS B SURF AG (test code = NON-REACTIVE 2739) HEPATITIS C ANTIBODY (test code NON-REACTIVE = 4675) INTERPRETATION HEPATITIS A: (NOTE) (test code = 2552) INTERPRETATION HEPATITIS B: (NOTE) (test code = 59522) INTERPRETATION HEPATITIS C: (NOTE) (test code = 37517) HEMOGLOBIN [id number] 00:00:00 Test Item Value Reference Range Interpretation Comments HEMOGLOBIN A1c (test code = 56129) 6.2 % HEMOGLOBIN [id number] 00:00:00 Test Item Value Reference Range Interpretation Comments HEMOGLOBIN A1c (test code = 01037) 6.2 % LIPID [id number] 00:00:00 Test Item Value Reference Range Interpretation Comments CHOLESTEROL (test code = 2210) 196 MG/DL TRIGLYCERIDES (test code = 2232) 486 MG/DL HDL CHOLESTEROL (test code = 44 MG/DL 2220) CALC LDL CHOL (test code = 2237) (NOTE) MG/DL RISK RATIO LDL/HDL (test code = (NOTE) RATIO 2238) COMPREHENSIVE METABOLIC [id number] 00:00:00 Test Item Value Reference Range Interpretation Comments GLUCOSE (test code = 2217) 117 MG/DL BUN (test code = 2208) 54 MG/DL CREATININE (test code = 2214) 11.27 MG/DL eGFR (2020 CKD-EPI) (test code 5 ML/MIN/1.73 = 18373) CALC BUN/CREAT (test code = 5 RATIO [...] code = 2219) 8 U/L CBC W/AUTO [id number] 00:00:00 Test Item Value Reference Range Interpretation [...] NUCLEATED RBCS (test code = 0.00 K/UL 75430) CBC W/AUTO [id number] 00:00:00 Test Item Value Reference Range Interpretation [...] NUCLEATED RBCS (test code = 0.00 K/UL 09492) CBC W/AUTO [id number] 00:00:00 Test Item Value Reference Range Interpretation [...] NUCLEATED RBCS (test code = 0.00 K/UL 04265) [id number] 00:00:00 Test Item Value Reference Range Interpretation Comments TSH, THIRD GENERATION (test 82.000 UIU/ML code = 2821) HEMOGLOBIN [id number] 00:00:00 Test Item Value Reference Range Interpretation Comments HEMOGLOBIN A1c (test code = 86339) 6.2 % HEMOGLOBIN [id number] 00:00:00 Test Item Value Reference Range Interpretation Comments HEMOGLOBIN A1c (test code = 63852) 6.2 % [id number] 00:00:00 Test Item Value Reference Range Interpretation Comments TSH, THIRD GENERATION (test 82.000 UIU/ML code = 2821) HEMOGLOBIN [id number] 00:00:00 Test Item Value Reference Range Interpretation Comments HEMOGLOBIN A1c (test code = 34142) 6.2 % HIV AB/AG COMBO RFLX [id number] 00:00:00 Test Item Value Reference Range Interpretation Comments HIV 1/2 4TH GEN, RFLX CONF (test NON-REACTIVE code = 3514) LIPID [id number] 00:00:00 Test Item Value Reference Range Interpretation Comments CHOLESTEROL (test code = 2210) 196 MG/DL TRIGLYCERIDES (test code = 2232) 486 MG/DL HDL CHOLESTEROL (test code = 44 MG/DL 2220) CALC LDL CHOL (test code = 2237) (NOTE) MG/DL RISK RATIO LDL/HDL (test code = (NOTE) RATIO 2238) LIPID [id number] 00:00:00 Test Item Value Reference Range Interpretation Comments CHOLESTEROL (test code = 2210) 196 MG/DL TRIGLYCERIDES (test code = 2232) 486 MG/DL HDL CHOLESTEROL (test code = 44 MG/DL 2220) CALC LDL CHOL (test code = 2237) (NOTE) MG/DL RISK RATIO LDL/HDL (test code = (NOTE) RATIO 2238) ACUTE HEPATITIS [id number] 00:00:00 Test Item Value Reference Range Interpretation Comments HEPATITIS A IgM (test code = NON-REACTIVE 69824) HEPATITIS B CORE IgM (test code NON-REACTIVE = 4644) HEPATITIS B SURF AG (test code = NON-REACTIVE 3099) HEPATITIS C ANTIBODY (test code NON-REACTIVE = 0398) INTERPRETATION HEPATITIS A: (NOTE) (test code = 2552) INTERPRETATION HEPATITIS B: (NOTE) (test code = 65125) INTERPRETATION HEPATITIS C: (NOTE) (test code = 69253) COMPREHENSIVE METABOLIC [id number] 00:00:00 Test Item Value Reference Range Interpretation Comments GLUCOSE (test code = 2217) 117 MG/DL BUN (test code = 2208) 54 MG/DL CREATININE (test code = 2214) 11.27 MG/DL eGFR (2020 CKD-EPI) (test code 5 ML/MIN/1.73 = 44554) CALC BUN/CREAT (test code = 5 RATIO [...] code = 2219) 8 U/L COMPREHENSIVE METABOLIC [id number] 00:00:00 Test Item Value Reference Range Interpretation Comments GLUCOSE (test code = 2217) 117 MG/DL BUN (test code = 2208) 54 MG/DL CREATININE (test code = 2214) 11.27 MG/DL eGFR (2020 CKD-EPI) (test code 5 ML/MIN/1.73 = 68860) CALC BUN/CREAT (test code = 5 RATIO [...] ALT (test code = 2219) 8 U/L [id number] 00:00:00 Test Item Value Reference Range Interpretation Comments TSH, THIRD GENERATION (test 82.000 UIU/ML code = 2821) [id number] 00:00:00 Test Item Value Reference Range Interpretation Comments TSH, THIRD GENERATION (test 82.000 UIU/ML code = 2821) [id number] 00:00:00 Test Item Value Reference Range Interpretation Comments TSH, THIRD GENERATION (test 82.000 UIU/ML code = 2821) HIV AB/AG COMBO RFLX [id number] 00:00:00 Test Item Value Reference Range Interpretation Comments HIV 1/2 4TH GEN, RFLX CONF (test NON-REACTIVE code = 3514) HIV AB/AG COMBO RFLX [id number] 00:00:00 Test Item Value Reference Range Interpretation Comments HIV 1/2 4TH GEN, RFLX CONF (test NON-REACTIVE code = 3514) ACUTE HEPATITIS [id number] 00:00:00 Test Item Value Reference Range Interpretation Comments HEPATITIS A IgM (test code = NON-REACTIVE 28516) HEPATITIS B CORE IgM (test code NON-REACTIVE = 5287) HEPATITIS B SURF AG (test code = NON-REACTIVE 8789) HEPATITIS C ANTIBODY (test code NON-REACTIVE = 8156) INTERPRETATION HEPATITIS A: (NOTE) (test code = 2552) INTERPRETATION HEPATITIS B: (NOTE) (test code = 99818) INTERPRETATION HEPATITIS C: (NOTE) (test code = 20146) ACUTE HEPATITIS [id number] 00:00:00 Test Item Value Reference Range Interpretation Comments HEPATITIS A IgM (test code = NON-REACTIVE 66363) HEPATITIS B CORE IgM (test code NON-REACTIVE = 4644) HEPATITIS B SURF AG (test code = NON-REACTIVE 2739) HEPATITIS C ANTIBODY (test code NON-REACTIVE = 4675) INTERPRETATION HEPATITIS A: (NOTE) (test code = 2552) INTERPRETATION HEPATITIS B: (NOTE) (test code = 94634) INTERPRETATION HEPATITIS C: (NOTE) (test code = 78633) CBC W/AUTO [id number] 00:00:00 Test Item Value Reference Range Interpretation [...] NUCLEATED RBCS (test code = 0.00 K/UL 15406) CBC W/AUTO [id number] 00:00:00 Test Item Value Reference Range Interpretation [...] NUCLEATED RBCS (test code = 0.00 K/UL 59077) CBC W/AUTO [id number] 00:00:00 Test Item Value Reference Range Interpretation [...] NUCLEATED RBCS (test code = 0.00 K/UL 61498) HEMOGLOBIN [id number] 00:00:00 Test Item Value Reference Range Interpretation Comments HEMOGLOBIN A1c (test code = 86613) 6.2 % HEMOGLOBIN [id number] 00:00:00 Test Item Value Reference Range Interpretation Comments HEMOGLOBIN A1c (test code = 56570) 6.2 % HEMOGLOBIN [id number] 00:00:00 Test Item Value Reference Range Interpretation Comments HEMOGLOBIN A1c (test code = 32597) 6.2 % LIPID [id number] 00:00:00 Test Item Value Reference Range Interpretation Comments CHOLESTEROL (test code = 2210) 196 MG/DL TRIGLYCERIDES (test code = 2232) 486 MG/DL HDL CHOLESTEROL (test code = 44 MG/DL 2220) CALC LDL CHOL (test code = 2237) (NOTE) MG/DL RISK RATIO LDL/HDL (test code = (NOTE) RATIO 2238) LIPID [id number] 00:00:00 Test Item Value Reference Range Interpretation Comments CHOLESTEROL (test code = 2210) 196 MG/DL TRIGLYCERIDES (test code = 2232) 486 MG/DL HDL CHOLESTEROL (test code = 44 MG/DL 2220) CALC LDL CHOL (test code = 2237) (NOTE) MG/DL RISK RATIO LDL/HDL (test code = (NOTE) RATIO 2238) COMPREHENSIVE METABOLIC [id number] 00:00:00 Test Item Value Reference Range Interpretation Comments GLUCOSE (test code = 2217) 117 MG/DL BUN (test code = 2208) 54 MG/DL CREATININE (test code = 2214) 11.27 MG/DL eGFR (2020 CKD-EPI) (test code 5 ML/MIN/1.73 = 21355) CALC BUN/CREAT (test code = 5 RATIO [...] code = 2219) 8 U/L COMPREHENSIVE METABOLIC [id number] 00:00:00 Test Item Value Reference Range Interpretation Comments GLUCOSE (test code = 2217) 117 MG/DL BUN (test code = 2208) 54 MG/DL CREATININE (test code = 2214) 11.27 MG/DL eGFR (2020 CKD-EPI) (test code 5 ML/MIN/1.73 = 77744) CALC BUN/CREAT (test code = 5 RATIO [...] ALT (test code = 2219) 8 U/L [id number] 00:00:00 Test Item Value Reference Range Interpretation Comments TSH, THIRD GENERATION (test 82.000 UIU/ML code = 2821) [id number] 00:00:00 Test Item Value Reference Range Interpretation Comments TSH, THIRD GENERATION (test 82.000 UIU/ML code = 2821) [id number] 00:00:00 Test Item Value Reference Range Interpretation Comments TSH, THIRD GENERATION (test 82.000 UIU/ML code = 2821) HIV AB/AG COMBO RFLX [id number] 00:00:00 Test Item Value Reference Range Interpretation Comments HIV 1/2 4TH GEN, RFLX CONF (test NON-REACTIVE code = 3514) HIV AB/AG COMBO RFLX [id number] 00:00:00 Test Item Value Reference Range Interpretation Comments HIV 1/2 4TH GEN, RFLX CONF (test NON-REACTIVE code = 3514) ACUTE HEPATITIS [id number] 00:00:00 Test Item Value Reference Range Interpretation Comments HEPATITIS A IgM (test code = NON-REACTIVE 46414) HEPATITIS B CORE IgM (test code NON-REACTIVE = 4644) HEPATITIS B SURF AG (test code = NON-REACTIVE 2739) HEPATITIS C ANTIBODY (test code NON-REACTIVE = 4675) INTERPRETATION HEPATITIS A: (NOTE) (test code = 2552) INTERPRETATION HEPATITIS B: (NOTE) (test code = 67145) INTERPRETATION HEPATITIS C: (NOTE) (test code = 00546) ACUTE HEPATITIS [id number] 00:00:00 Test Item Value Reference Range Interpretation Comments HEPATITIS A IgM (test code = NON-REACTIVE 05634) HEPATITIS B CORE IgM (test code NON-REACTIVE = 4644) HEPATITIS B SURF AG (test code = NON-REACTIVE 2739) HEPATITIS C ANTIBODY (test code NON-REACTIVE = 4675) INTERPRETATION HEPATITIS A: (NOTE) (test code = 2552) INTERPRETATION HEPATITIS B: (NOTE) (test code = 75225) INTERPRETATION HEPATITIS C: (NOTE) (test code = 10330) CBC W/AUTO [id number] 00:00:00 Test Item Value Reference Range Interpretation [...] NUCLEATED RBCS (test code = 0.00 K/UL 54069) CBC W/AUTO [id number] 00:00:00 Test Item Value Reference Range Interpretation [...] NUCLEATED RBCS (test code = 0.00 K/UL 05202) CBC W/AUTO [id number] 00:00:00 Test Item Value Reference Range Interpretation [...] NUCLEATED RBCS (test code = 0.00 K/UL 73363) HEMOGLOBIN [id number] 00:00:00 Test Item Value Reference Range Interpretation Comments HEMOGLOBIN A1c (test code = 47552) 6.2 % HEMOGLOBIN [id number] 00:00:00 Test Item Value Reference Range Interpretation Comments HEMOGLOBIN A1c (test code = 36518) 6.2 % HEMOGLOBIN [id number] 00:00:00 Test Item Value Reference Range Interpretation Comments HEMOGLOBIN A1c (test code = 25580) 6.2 % LIPID [id number] 00:00:00 Test Item Value Reference Range Interpretation Comments CHOLESTEROL (test code = 2210) 196 MG/DL TRIGLYCERIDES (test code = 2232) 486 MG/DL HDL CHOLESTEROL (test code = 44 MG/DL 2220) CALC LDL CHOL (test code = 2237) (NOTE) MG/DL RISK RATIO LDL/HDL (test code = (NOTE) RATIO 2238) LIPID [id number] 00:00:00 Test Item Value Reference Range Interpretation Comments CHOLESTEROL (test code = 2210) 196 MG/DL TRIGLYCERIDES (test code = 2232) 486 MG/DL HDL CHOLESTEROL (test code = 44 MG/DL 2220) CALC LDL CHOL (test code = 2237) (NOTE) MG/DL RISK RATIO LDL/HDL (test code = (NOTE) RATIO 2238) COMPREHENSIVE METABOLIC [id number] 00:00:00 Test Item Value Reference Range Interpretation Comments GLUCOSE (test code = 2217) 117 MG/DL BUN (test code = 2208) 54 MG/DL CREATININE (test code = 2214) 11.27 MG/DL eGFR (2020 CKD-EPI) (test code 5 ML/MIN/1.73 = 08588) CALC BUN/CREAT (test code = 5 RATIO [...] code = 2219) 8 U/L COMPREHENSIVE METABOLIC [id number] 00:00:00 Test Item Value Reference Range Interpretation Comments GLUCOSE (test code = 2217) 117 MG/DL BUN (test code = 2208) 54 MG/DL CREATININE (test code = 2214) 11.27 MG/DL eGFR (2020 CKD-EPI) (test code 5 ML/MIN/1.73 = 03195) CALC BUN/CREAT (test code = 5 RATIO [...] ALT (test code = 2219) 8 U/L [id number] 00:00:00 Test Item Value Reference Range Interpretation Comments TSH, THIRD GENERATION (test 82.000 UIU/ML code = 2821) [id number] 00:00:00 Test Item Value Reference Range Interpretation Comments TSH, THIRD GENERATION (test 82.000 UIU/ML code = 2821) [id number] 00:00:00 Test Item Value Reference Range Interpretation Comments TSH, THIRD GENERATION (test 82.000 UIU/ML code = 2821) HIV AB/AG COMBO RFLX [id number] 00:00:00 Test Item Value Reference Range Interpretation Comments HIV 1/2 4TH GEN, RFLX CONF (test NON-REACTIVE code = 3514) HIV AB/AG COMBO RFLX [id number] 00:00:00 Test Item Value Reference Range Interpretation Comments HIV 1/2 4TH GEN, RFLX CONF (test NON-REACTIVE code = 3514) ACUTE HEPATITIS [id number] 00:00:00 Test Item Value Reference Range Interpretation Comments HEPATITIS A IgM (test code = NON-REACTIVE 33294) HEPATITIS B CORE IgM (test code NON-REACTIVE = 4644) HEPATITIS B SURF AG (test code = NON-REACTIVE 2739) HEPATITIS C ANTIBODY (test code NON-REACTIVE = 4675) INTERPRETATION HEPATITIS A: (NOTE) (test code = 2552) INTERPRETATION HEPATITIS B: (NOTE) (test code = 05948) INTERPRETATION HEPATITIS C: (NOTE) (test code = 25634) ACUTE HEPATITIS [id number] 00:00:00 Test Item Value Reference Range Interpretation Comments HEPATITIS A IgM (test code = NON-REACTIVE 36699) HEPATITIS B CORE IgM (test code NON-REACTIVE = 4644) HEPATITIS B SURF AG (test code = NON-REACTIVE 2739) HEPATITIS C ANTIBODY (test code NON-REACTIVE = 4675) INTERPRETATION HEPATITIS A: (NOTE) (test code = 2552) INTERPRETATION HEPATITIS B: (NOTE) (test code = 96575) INTERPRETATION HEPATITIS C: (NOTE) (test code = 17891) CBC W/AUTO [id number] 00:00:00 Test Item Value Reference Range Interpretation [...] NUCLEATED RBCS (test code = 0.00 K/UL 98506) CBC W/AUTO [id number] 00:00:00 Test Item Value Reference Range Interpretation [...] NUCLEATED RBCS (test code = 0.00 K/UL 22195) CBC W/AUTO [id number] 00:00:00 Test Item Value Reference Range Interpretation [...] NUCLEATED RBCS (test code = 0.00 K/UL 45087) HEMOGLOBIN [id number] 00:00:00 Test Item Value Reference Range Interpretation Comments HEMOGLOBIN A1c (test code = 57570) 6.2 % HEMOGLOBIN [id number] 00:00:00 Test Item Value Reference Range Interpretation Comments HEMOGLOBIN A1c (test code = 92552) 6.2 % HEMOGLOBIN [id number] 00:00:00 Test Item Value Reference Range Interpretation Comments HEMOGLOBIN A1c (test code = 27906) 6.2 % LIPID [id number] 00:00:00 Test Item Value Reference Range Interpretation Comments CHOLESTEROL (test code = 2210) 196 MG/DL TRIGLYCERIDES (test code = 2232) 486 MG/DL HDL CHOLESTEROL (test code = 44 MG/DL 2220) CALC LDL CHOL (test code = 2237) (NOTE) MG/DL RISK RATIO LDL/HDL (test code = (NOTE) RATIO 2238) LIPID [id number] 00:00:00 Test Item Value Reference Range Interpretation Comments CHOLESTEROL (test code = 2210) 196 MG/DL TRIGLYCERIDES (test code = 2232) 486 MG/DL HDL CHOLESTEROL (test code = 44 MG/DL 2220) CALC LDL CHOL (test code = 2237) (NOTE) MG/DL RISK RATIO LDL/HDL (test code = (NOTE) RATIO 2238) COMPREHENSIVE METABOLIC [id number] 00:00:00 Test Item Value Reference Range Interpretation Comments GLUCOSE (test code = 2217) 117 MG/DL BUN (test code = 2208) 54 MG/DL CREATININE (test code = 2214) 11.27 MG/DL eGFR (2020 CKD-EPI) (test code 5 ML/MIN/1.73 = 45257) CALC BUN/CREAT (test code = 5 RATIO [...] code = 2219) 8 U/L COMPREHENSIVE METABOLIC [id number] 00:00:00 Test Item Value Reference Range Interpretation Comments GLUCOSE (test code = 2217) 117 MG/DL BUN (test code = 2208) 54 MG/DL CREATININE (test code = 2214) 11.27 MG/DL eGFR (2020 CKD-EPI) (test code 5 ML/MIN/1.73 = 78164) CALC BUN/CREAT (test code = 5 RATIO [...] ALT (test code = 2219) 8 U/L [id number] 00:00:00 Test Item Value Reference Range Interpretation Comments TSH, THIRD GENERATION (test 82.000 UIU/ML code = 2821) [id number] 00:00:00 Test Item Value Reference Range Interpretation Comments TSH, THIRD GENERATION (test 82.000 UIU/ML code = 2821) [id number] 00:00:00 Test Item Value Reference Range Interpretation Comments TSH, THIRD GENERATION (test 82.000 UIU/ML code = 2821) HIV AB/AG COMBO RFLX [id number] 00:00:00 Test Item Value Reference Range Interpretation Comments HIV 1/2 4TH GEN, RFLX CONF (test NON-REACTIVE code = 3514) HIV AB/AG COMBO RFLX [id number] 00:00:00 Test Item Value Reference Range Interpretation Comments HIV 1/2 4TH GEN, RFLX CONF (test NON-REACTIVE code = 3514) ACUTE HEPATITIS [id number] 00:00:00 Test Item Value Reference Range Interpretation Comments HEPATITIS A IgM (test code = NON-REACTIVE 43907) HEPATITIS B CORE IgM (test code NON-REACTIVE = 4644) HEPATITIS B SURF AG (test code = NON-REACTIVE 2739) HEPATITIS C ANTIBODY (test code NON-REACTIVE = 4675) INTERPRETATION HEPATITIS A: (NOTE) (test code = 2552) INTERPRETATION HEPATITIS B: (NOTE) (test code = 25281) INTERPRETATION HEPATITIS C: (NOTE) (test code = 49827) ACUTE HEPATITIS [id number] 00:00:00 Test Item Value Reference Range Interpretation Comments HEPATITIS A IgM (test code = NON-REACTIVE 81839) HEPATITIS B CORE IgM (test code NON-REACTIVE = 4644) HEPATITIS B SURF AG (test code = NON-REACTIVE 2739) HEPATITIS C ANTIBODY (test code NON-REACTIVE = 4675) INTERPRETATION HEPATITIS A: (NOTE) (test code = 2552) INTERPRETATION HEPATITIS B: (NOTE) (test code = 24059) INTERPRETATION HEPATITIS C: (NOTE) (test code = 01932) CBC W/AUTO [id number] 00:00:00 Test Item Value Reference Range Interpretation [...] NUCLEATED RBCS (test code = 0.00 K/UL 60447) CBC W/AUTO [id number] 00:00:00 Test Item Value Reference Range Interpretation [...] NUCLEATED RBCS (test code = 0.00 K/UL 84355) CBC W/AUTO [id number] 00:00:00 Test Item Value Reference Range Interpretation [...] NUCLEATED RBCS (test code = 0.00 K/UL 83230) HEMOGLOBIN [id number] 00:00:00 Test Item Value Reference Range Interpretation Comments HEMOGLOBIN A1c (test code = 67421) 6.2 % HEMOGLOBIN [id number] 00:00:00 Test Item Value Reference Range Interpretation Comments HEMOGLOBIN A1c (test code = 78958) 6.2 % HEMOGLOBIN [id number] 00:00:00 Test Item Value Reference Range Interpretation Comments HEMOGLOBIN A1c (test code = 01693) 6.2 % LIPID [id number] 00:00:00 Test Item Value Reference Range Interpretation Comments CHOLESTEROL (test code = 2210) 196 MG/DL TRIGLYCERIDES (test code = 2232) 486 MG/DL HDL CHOLESTEROL (test code = 44 MG/DL 2220) CALC LDL CHOL (test code = 2237) (NOTE) MG/DL RISK RATIO LDL/HDL (test code = (NOTE) RATIO 2238) LIPID [id number] 00:00:00 Test Item Value Reference Range Interpretation Comments CHOLESTEROL (test code = 2210) 196 MG/DL TRIGLYCERIDES (test code = 2232) 486 MG/DL HDL CHOLESTEROL (test code = 44 MG/DL 2220) CALC LDL CHOL (test code = 2237) (NOTE) MG/DL RISK RATIO LDL/HDL (test code = (NOTE) RATIO 2238) COMPREHENSIVE METABOLIC [id number] 00:00:00 Test Item Value Reference Range Interpretation Comments GLUCOSE (test code = 2217) 117 MG/DL BUN (test code = 2208) 54 MG/DL CREATININE (test code = 2214) 11.27 MG/DL eGFR (2020 CKD-EPI) (test code 5 ML/MIN/1.73 = 60908) CALC BUN/CREAT (test code = 5 RATIO [...] code = 2219) 8 U/L COMPREHENSIVE METABOLIC [id number] 00:00:00 Test Item Value Reference Range Interpretation Comments GLUCOSE (test code = 2217) 117 MG/DL BUN (test code = 2208) 54 MG/DL CREATININE (test code = 2214) 11.27 MG/DL eGFR (2020 CKD-EPI) (test code 5 ML/MIN/1.73 = 88581) CALC BUN/CREAT (test code = 5 RATIO [...] ALT (test code = 2219) 8 U/L [id number] 00:00:00 Test Item Value Reference Range Interpretation Comments TSH, THIRD GENERATION (test 82.000 UIU/ML code = 2821) [id number] 00:00:00 Test Item Value Reference Range Interpretation Comments TSH, THIRD GENERATION (test 82.000 UIU/ML code = 2821) [id number] 00:00:00 Test Item Value Reference Range Interpretation Comments TSH, THIRD GENERATION (test 82.000 UIU/ML code = 2821) HIV AB/AG COMBO RFLX [id number] 00:00:00 Test Item Value Reference Range Interpretation Comments HIV 1/2 4TH GEN, RFLX CONF (test NON-REACTIVE code = 3514) HIV AB/AG COMBO RFLX [id number] 00:00:00 Test Item Value Reference Range Interpretation Comments HIV 1/2 4TH GEN, RFLX CONF (test NON-REACTIVE code = 3514) ACUTE HEPATITIS [id number] 00:00:00 Test Item Value Reference Range Interpretation Comments HEPATITIS A IgM (test code = NON-REACTIVE 53155) HEPATITIS B CORE IgM (test code NON-REACTIVE = 4644) HEPATITIS B SURF AG (test code = NON-REACTIVE 2739) HEPATITIS C ANTIBODY (test code NON-REACTIVE = 4675) INTERPRETATION HEPATITIS A: (NOTE) (test code = 2552) INTERPRETATION HEPATITIS B: (NOTE) (test code = 21230) INTERPRETATION HEPATITIS C: (NOTE) (test code = 66100) ACUTE HEPATITIS [id number] 00:00:00 Test Item Value Reference Range Interpretation Comments HEPATITIS A IgM (test code = NON-REACTIVE 00933) HEPATITIS B CORE IgM (test code NON-REACTIVE = 4644) HEPATITIS B SURF AG (test code = NON-REACTIVE 2739) HEPATITIS C ANTIBODY (test code NON-REACTIVE = 4675) INTERPRETATION HEPATITIS A: (NOTE) (test code = 2552) INTERPRETATION HEPATITIS B: (NOTE) (test code = 95496) INTERPRETATION HEPATITIS C: (NOTE) (test code = 43664) CBC W/AUTO [id number] 00:00:00 Test Item Value Reference Range Interpretation [...] NUCLEATED RBCS (test code = 0.00 K/UL 20258) CBC W/AUTO [id number] 00:00:00 Test Item Value Reference Range Interpretation [...] NUCLEATED RBCS (test code = 0.00 K/UL 89393) CBC W/AUTO [id number] 00:00:00 Test Item Value Reference Range Interpretation [...] NUCLEATED RBCS (test code = 0.00 K/UL 35710) HEMOGLOBIN [id number] 00:00:00 Test Item Value Reference Range Interpretation Comments HEMOGLOBIN A1c (test code = 56022) 6.2 % TSH, THIRD [id number] 05:58:13 Test Item Value Reference Range Interpretation Comments TSH, THIRD 33.700 UIU/ML 0.400-4.100 H UNLESS OTHERW ISE GENERATION (test INDICATED, ALL code = 2821) TESTING PERFORM ED ATCLINICAL PATH [facility]. [address] [place] [id number] [place] [address] DIRECTOR: LATOYA MCCALL M.D. CLIA NUMBER [id number] CAP ACCREDITATION N O. [id number] HEMOGLOBIN [id number] 02:44:08 Test Item Value Reference Range Interpretation Comments HEMOGLOBIN A1c (test 7.0 % 4.2-5.6 H [employer] AN DIABETES code = 96074) ASSOCIATION [employer] FOR HGB A1C: PREDIABETES/INC REASED [...] ALTERN ATE TESTING OR LABORATORY C ONSULTATION. TSH, THIRD GENERATION [ADDED]2021-05-16 00:00:00 Test Item [...] Interpretation Comments HEMOGLOBIN A1c (test code = 92394) 7.0 % HEMOGLOBIN A1c [ADDED]2021-05-16 00:00:00 Test Item Value Reference Range Interpretation Comments HEMOGLOBIN A1c (test code = 03761) 7.0 % HEMOGLOBIN A1c [ADDED]2021-05-16 00:00:00 Test Item Value Reference Range Interpretation Comments HEMOGLOBIN A1c (test code = 38616) 7.0 % HEMOGLOBIN A1c [ADDED]2021-05-16 00:00:00 Test Item Value Reference Range Interpretation Comments HEMOGLOBIN A1c (test code = 17636) 7.0 % HEMOGLOBIN A1c [ADDED]2021-05-16 00:00:00 Test Item Value Reference Range Interpretation Comments HEMOGLOBIN A1c (test code = 21359) 7.0 % TSH, THIRD GENERATION [ADDED]2021-05-16 00:00:00 [...] Interpretation Comments HEMOGLOBIN A1c (test code = 03486) 7.0 % HEMOGLOBIN A1c [ADDED]2021-05-16 00:00:00 Test Item Value Reference Range Interpretation Comments HEMOGLOBIN A1c (test code = 69189) 7.0 % HEMOGLOBIN A1c [ADDED]2021-05-16 00:00:00 Test Item Value Reference Range Interpretation Comments HEMOGLOBIN A1c (test code = 49811) 7.0 % TSH, THIRD GENERATION [ADDED]2021-05-16 00:00:00 [...] Interpretation Comments HEMOGLOBIN A1c (test code = 16600) 7.0 % HEMOGLOBIN A1c [ADDED]2021-05-16 00:00:00 Test Item Value Reference Range Interpretation Comments HEMOGLOBIN A1c (test code = 52810) 7.0 % HEMOGLOBIN A1c [ADDED]2021-05-16 00:00:00 Test Item Value Reference Range Interpretation Comments HEMOGLOBIN A1c (test code = 02942) 7.0 % TSH, THIRD GENERATION [ADDED]2021-05-16 00:00:00 [...] Interpretation Comments HEMOGLOBIN A1c (test code = 01519) 7.0 % HEMOGLOBIN A1c [ADDED]2021-05-16 00:00:00 Test Item Value Reference Range Interpretation Comments HEMOGLOBIN A1c (test code = 74934) 7.0 % HEMOGLOBIN A1c [ADDED]2021-05-16 00:00:00 Test Item Value Reference Range Interpretation Comments HEMOGLOBIN A1c (test code = 98664) 7.0 % TSH, THIRD GENERATION [ADDED]2021-05-16 00:00:00 [...] Interpretation Comments HEMOGLOBIN A1c (test code = 92127) 7.0 % HEMOGLOBIN A1c [ADDED]2021-05-16 00:00:00 Test Item Value Reference Range Interpretation Comments HEMOGLOBIN A1c (test code = 52252) 7.0 % HEMOGLOBIN A1c [ADDED]2021-05-16 00:00:00 Test Item Value Reference Range Interpretation Comments HEMOGLOBIN A1c (test code = 07616) 7.0 % TSH, THIRD GENERATION [ADDED]2021-05-16 00:00:00 [...] Interpretation Comments HEMOGLOBIN A1c (test code = 21888) 7.0 % HEMOGLOBIN A1c [ADDED]2021-05-16 00:00:00 Test Item Value Reference Range Interpretation Comments HEMOGLOBIN A1c (test code = 34465) 7.0 % HEMOGLOBIN A1c [ADDED]2021-05-16 00:00:00 Test Item Value Reference Range Interpretation Comments HEMOGLOBIN A1c (test code = 51469) 7.0 % TSH, THIRD GENERATION [ADDED]2021-05-16 00:00:00 [...] Interpretation Comments HEMOGLOBIN A1c (test code = 10373) 7.0 % HEMOGLOBIN A1c [ADDED]2021-05-16 00:00:00 Test Item Value Reference Range Interpretation Comments HEMOGLOBIN A1c (test code = 54186) 7.0 % HEMOGLOBIN A1c [ADDED]2021-05-16 00:00:00 Test Item Value Reference Range Interpretation Comments HEMOGLOBIN A1c (test code = 17675) 7.0 % COMPREHENSIVE METABOLIC [id number] 00:00:00 Test Item Value Reference Range Interpretation Comments GLUCOSE (test code = 2217) 317 MG/DL BUN (test code = 2208) 41 MG/DL CREATININE (test code = 2214) 6.82 MG/DL eGFR (2020 CKD-EPI) (test code 8 ML/MIN/1.73 = 30002) CALC BUN/CREAT (test code = 6 RATIO [...] code = 2219) 22 U/L COMPREHENSIVE METABOLIC [id number] 00:00:00 Test Item Value Reference Range Interpretation Comments GLUCOSE (test code = 2217) 317 MG/DL BUN (test code = 2208) 41 MG/DL CREATININE (test code = 2214) 6.82 MG/DL eGFR (2020 CKD-EPI) (test code 8 ML/MIN/1.73 = 23349) CALC BUN/CREAT (test code = 6 RATIO [...] code = 2219) 22 U/L CBC W/AUTO [id number] 00:00:00 Test Item Value Reference Range Interpretation [...] NUCLEATED RBCS (test code = 0.00 K/UL 13523) CBC W/AUTO [id number] 00:00:00 Test Item Value Reference Range Interpretation [...] NUCLEATED RBCS (test code = 0.00 K/UL 73633) CBC W/AUTO [id number] 00:00:00 Test Item Value Reference Range Interpretation [...] NUCLEATED RBCS (test code = 0.00 K/UL 48657) CBC W/AUTO [id number] 00:00:00 Test Item Value Reference Range Interpretation [...] NUCLEATED RBCS (test code = 0.00 K/UL 68650) CBC W/AUTO [id number] 00:00:00 Test Item Value Reference Range Interpretation [...] NUCLEATED RBCS (test code = 0.00 K/UL 67502) COMPREHENSIVE METABOLIC [id number] 00:00:00 Test Item Value Reference Range Interpretation Comments GLUCOSE (test code = 2217) 317 MG/DL BUN (test code = 2208) 41 MG/DL CREATININE (test code = 2214) 6.82 MG/DL eGFR (2020 CKD-EPI) (test code 8 ML/MIN/1.73 = 65602) CALC BUN/CREAT (test code = 6 RATIO [...] code = 2219) 22 U/L COMPREHENSIVE METABOLIC [id number] 00:00:00 Test Item Value Reference Range Interpretation Comments GLUCOSE (test code = 2217) 317 MG/DL BUN (test code = 2208) 41 MG/DL CREATININE (test code = 2214) 6.82 MG/DL eGFR (2020 CKD-EPI) (test code 8 ML/MIN/1.73 = 96392) CALC BUN/CREAT (test code = 6 RATIO [...] code = 2219) 22 U/L COMPREHENSIVE METABOLIC [id number] 00:00:00 Test Item Value Reference Range Interpretation Comments GLUCOSE (test code = 2216) 317 MG/DL BUN (test code = 2208) 41 MG/DL CREATININE (test code = 2214) 6.82 MG/DL eGFR (2020 CKD-EPI) (test code 8 ML/MIN/1.73 = 28136) CALC BUN/CREAT (test code = 6 RATIO [...] code = 2219) 22 U/L CBC W/AUTO [id number] 00:00:00 Test Item Value Reference Range Interpretation [...] NUCLEATED RBCS (test code = 0.00 K/UL 75099) CBC W/AUTO [id number] 00:00:00 Test Item Value Reference Range Interpretation [...] NUCLEATED RBCS (test code = 0.00 K/UL 85760) CBC W/AUTO [id number] 00:00:00 Test Item Value Reference Range Interpretation [...] NUCLEATED RBCS (test code = 0.00 K/UL 61932) COMPREHENSIVE METABOLIC [id number] 00:00:00 Test Item Value Reference Range Interpretation Comments GLUCOSE (test code = 2217) 317 MG/DL BUN (test code = 2208) 41 MG/DL CREATININE (test code = 2214) 6.82 MG/DL eGFR (2020 CKD-EPI) (test code 8 ML/MIN/1.73 = 84163) CALC BUN/CREAT (test code = 6 RATIO [...] code = 2219) 22 U/L COMPREHENSIVE METABOLIC [id number] 00:00:00 Test Item Value Reference Range Interpretation Comments GLUCOSE (test code = 2217) 317 MG/DL BUN (test code = 2208) 41 MG/DL CREATININE (test code = 2214) 6.82 MG/DL eGFR (2020 CKD-EPI) (test code 8 ML/MIN/1.73 = 68075) CALC BUN/CREAT (test code = 6 RATIO [...] code = 2219) 22 U/L CBC W/AUTO [id number] 00:00:00 Test Item Value Reference Range Interpretation [...] NUCLEATED RBCS (test code = 0.00 K/UL 15703) CBC W/AUTO [id number] 00:00:00 Test Item Value Reference Range Interpretation [...] NUCLEATED RBCS (test code = 0.00 K/UL 81440) CBC W/AUTO [id number] 00:00:00 Test Item Value Reference Range Interpretation [...] NUCLEATED RBCS (test code = 0.00 K/UL 21061) COMPREHENSIVE METABOLIC [id number] 00:00:00 Test Item Value Reference Range Interpretation Comments GLUCOSE (test code = 2217) 317 MG/DL BUN (test code = 2208) 41 MG/DL CREATININE (test code = 2214) 6.82 MG/DL eGFR (2020 CKD-EPI) (test code 8 ML/MIN/1.73 = 29018) CALC BUN/CREAT (test code = 6 RATIO [...] code = 2219) 22 U/L COMPREHENSIVE METABOLIC [id number] 00:00:00 Test Item Value Reference Range Interpretation Comments GLUCOSE (test code = 2217) 317 MG/DL BUN (test code = 2208) 41 MG/DL CREATININE (test code = 2214) 6.82 MG/DL eGFR (2020 CKD-EPI) (test code 8 ML/MIN/1.73 = 83388) CALC BUN/CREAT (test code = 6 RATIO [...] code = 2219) 22 U/L CBC W/AUTO [id number] 00:00:00 Test Item Value Reference Range Interpretation [...] NUCLEATED RBCS (test code = 0.00 K/UL 44656) CBC W/AUTO [id number] 00:00:00 Test Item Value Reference Range Interpretation [...] NUCLEATED RBCS (test code = 0.00 K/UL 41477) CBC W/AUTO [id number] 00:00:00 Test Item Value Reference Range Interpretation [...] NUCLEATED RBCS (test code = 0.00 K/UL 03221) COMPREHENSIVE METABOLIC [id number] 00:00:00 Test Item Value Reference Range Interpretation Comments GLUCOSE (test code = 2217) 317 MG/DL BUN (test code = 2208) 41 MG/DL CREATININE (test code = 2214) 6.82 MG/DL eGFR (2020 CKD-EPI) (test code 8 ML/MIN/1.73 = 46227) CALC BUN/CREAT (test code = 6 RATIO [...] code = 2219) 22 U/L COMPREHENSIVE METABOLIC [id number] 00:00:00 Test Item Value Reference Range Interpretation Comments GLUCOSE (test code = 2217) 317 MG/DL BUN (test code = 2208) 41 MG/DL CREATININE (test code = 2214) 6.82 MG/DL eGFR (2020 CKD-EPI) (test code 8 ML/MIN/1.73 = 82924) CALC BUN/CREAT (test code = 6 RATIO 2235) SODIUM (test code = 2231) 137 MEQ/L POTASSIUM (test code = 2228) 3.8 MEQ/L CHLORIDE (test code = 2215) 91 MEQ/L CARBON DIOXIDE (test code = 25 MEQ/L 2205) CALCIUM (test code = 220) 9.6 MG/DL PROTEIN, TOTAL (test code = [...] code = 2219) 22 U/L CBC W/AUTO [id number] 00:00:00 Test Item Value Reference Range Interpretation [...] NUCLEATED RBCS (test code = 0.00 K/UL 13654) CBC W/AUTO [id number] 00:00:00 Test Item Value Reference Range Interpretation [...] NUCLEATED RBCS (test code = 0.00 K/UL 21670) CBC W/AUTO [id number] 00:00:00 Test Item Value Reference Range Interpretation [...] NUCLEATED RBCS (test code = 0.00 K/UL 71999) COMPREHENSIVE METABOLIC [id number] 00:00:00 Test Item Value Reference Range Interpretation Comments GLUCOSE (test code = 2217) 317 MG/DL BUN (test code = 2208) 41 MG/DL CREATININE (test code = 2214) 6.82 MG/DL eGFR (2020 CKD-EPI) (test code 8 ML/MIN/1.73 = 78710) CALC BUN/CREAT (test code = 6 RATIO [...] code = 2219) 22 U/L COMPREHENSIVE METABOLIC [id number] 00:00:00 Test Item Value Reference Range Interpretation Comments GLUCOSE (test code = 2217) 317 MG/DL BUN (test code = 2208) 41 MG/DL CREATININE (test code = 2214) 6.82 MG/DL eGFR (2020 CKD-EPI) (test code 8 ML/MIN/1.73 = 71508) CALC BUN/CREAT (test code = 6 RATIO 5) SODIUM (test code = 2231) 137 MEQ/L [...] code = 2219) 22 U/L CBC W/AUTO [id number] 00:00:00 Test Item Value Reference Range Interpretation [...] NUCLEATED RBCS (test code = 0.00 K/UL 88169) CBC W/AUTO [id number] 00:00:00 Test Item Value Reference Range Interpretation [...] NUCLEATED RBCS (test code = 0.00 K/UL 97128) CBC W/AUTO [id number] 00:00:00 Test Item Value Reference Range Interpretation [...] NUCLEATED RBCS (test code = 0.00 K/UL 87013) COMPREHENSIVE METABOLIC [id number] 00:00:00 Test Item Value Reference Range Interpretation Comments GLUCOSE (test code = 2217) 317 MG/DL BUN (test code = 2208) 41 MG/DL CREATININE (test code = 2214) 6.82 MG/DL eGFR (2020 CKD-EPI) (test code 8 ML/MIN/1.73 = 57889) CALC BUN/CREAT (test code = 6 RATIO [...] code = 2219) 22 U/L COMPREHENSIVE METABOLIC [id number] 00:00:00 Test Item Value Reference Range Interpretation Comments GLUCOSE (test code = 2217) 317 MG/DL BUN (test code = 2208) 41 MG/DL CREATININE (test code = 2214) 6.82 MG/DL eGFR (2020 CKD-EPI) (test code 8 ML/MIN/1.73 = 11869) CALC BUN/CREAT (test code = 6 RATIO [...] code = 2219) 22 U/L CBC W/AUTO [id number] 00:00:00 Test Item Value Reference Range Interpretation [...] NUCLEATED RBCS (test code = 0.00 K/UL 65851) CBC W/AUTO [id number] 00:00:00 Test Item Value Reference Range Interpretation [...] NUCLEATED RBCS (test code = 0.00 K/UL 77185) CBC W/AUTO [id number] 00:00:00 Test Item Value Reference Range Interpretation [...] NUCLEATED RBCS (test code = 0.00 K/UL 86490) [id number] 00:00:00 Test Item Value Reference Range Interpretation Comments LIPASE (test code = 2057) 116 U/L [id number] 00:00:00 Test Item Value Reference Range Interpretation Comments LIPASE (test code = 2057) 116 U/L [id number] 00:00:00 Test Item Value Reference Range Interpretation Comments AMYLASE (test code = 5) 168 U/L [id number] 00:00:00 Test Item Value Reference Range Interpretation Comments AMYLASE (test code = 5) 168 U/L [id number] 00:00:00 Test Item Value Reference Range Interpretation Comments AMYLASE (test code = 5) 168 U/L [id number] 00:00:00 Test Item Value Reference Range Interpretation Comments LIPASE (test code = 2058) 116 U/L [id number] 00:00:00 Test Item Value Reference Range Interpretation Comments LIPASE (test code = 2057) 116 U/L [id number] 00:00:00 Test Item Value Reference Range Interpretation Comments LIPASE (test code = 2057) 116 U/L [id number] 00:00:00 Test Item Value Reference Range Interpretation Comments LIPASE (test code = 2057) 116 U/L [id number] 00:00:00 Test Item Value Reference Range Interpretation Comments LIPASE (test code = 2057) 116 U/L [id number] 00:00:00 Test Item Value Reference Range Interpretation Comments AMYLASE (test code = 5) 168 U/L [id number] 00:00:00 Test Item Value Reference Range Interpretation Comments AMYLASE (test code = 5) 168 U/L [id number] 00:00:00 Test Item Value Reference Range Interpretation Comments LIPASE (test code = 2057) 116 U/L [id number] 00:00:00 Test Item Value Reference Range Interpretation Comments LIPASE (test code = 2057) 116 U/L [id number] 00:00:00 Test Item Value Reference Range Interpretation Comments LIPASE (test code = 2057) 116 U/L [id number] 00:00:00 Test Item Value Reference Range Interpretation Comments AMYLASE (test code = 2205) 168 U/L [id number] 00:00:00 Test Item Value Reference Range Interpretation Comments AMYLASE (test code = 2205) 168 U/L [id number] 00:00:00 Test Item Value Reference Range Interpretation Comments LIPASE (test code = 2057) 116 U/L [id number] 00:00:00 Test Item Value Reference Range Interpretation Comments LIPASE (test code = 2057) 116 U/L [id number] 00:00:00 Test Item Value Reference Range Interpretation Comments LIPASE (test code = 2057) 116 U/L [id number] 00:00:00 Test Item Value Reference Range Interpretation Comments AMYLASE (test code = 2205) 168 U/L [id number] 00:00:00 Test Item Value Reference Range Interpretation Comments AMYLASE (test code = 2205) 168 U/L [id number] 00:00:00 Test Item Value Reference Range Interpretation Comments LIPASE (test code = 2057) 116 U/L [id number] 00:00:00 Test Item Value Reference Range Interpretation Comments LIPASE (test code = 2057) 116 U/L [id number] 00:00:00 Test Item Value Reference Range Interpretation Comments LIPASE (test code = 2057) 116 U/L [id number] 00:00:00 Test Item Value Reference Range Interpretation Comments AMYLASE (test code = 5) 168 U/L [id number] 00:00:00 Test Item Value Reference Range Interpretation Comments AMYLASE (test code = 2204) 168 U/L [id number] 00:00:00 Test Item Value Reference Range Interpretation Comments LIPASE (test code = 2057) 116 U/L [id number] 00:00:00 Test Item Value Reference Range Interpretation Comments LIPASE (test code = 2057) 116 U/L [id number] 00:00:00 Test Item Value Reference Range Interpretation Comments LIPASE (test code = 2057) 116 U/L [id number] 00:00:00 Test Item Value Reference Range Interpretation Comments AMYLASE (test code = 5) 168 U/L [id number] 00:00:00 Test Item Value Reference Range Interpretation Comments AMYLASE (test code = 5) 168 U/L [id number] 00:00:00 Test Item Value Reference Range Interpretation Comments LIPASE (test code = 2057) 116 U/L [id number] 00:00:00 Test Item Value Reference Range Interpretation Comments LIPASE (test code = 2057) 116 U/L [id number] 00:00:00 Test Item Value Reference Range Interpretation Comments LIPASE (test code = 2057) 116 U/L [id number] 00:00:00 Test Item Value Reference Range Interpretation Comments AMYLASE (test code = 2205) 168 U/L [id number] 00:00:00 Test Item Value Reference Range Interpretation Comments AMYLASE (test code = 2205) 168 U/L [id number] 00:00:00 Test Item Value Reference Range Interpretation Comments LIPASE (test code = 2057) 116 U/L LIPID [id number] 00:00:00 Test Item Value Reference Range Interpretation Comments CHOLESTEROL (test code = 2210) 308 MG/DL TRIGLYCERIDES (test code = 2232) 280 MG/DL HDL CHOLESTEROL (test code = 2220) 66 MG/DL CALC LDL CHOL (test code = 2237) 192 MG/DL RISK RATIO LDL/HDL (test code = 2.91 RATIO 2238) LIPID [id number] 00:00:00 Test Item Value Reference Range Interpretation Comments CHOLESTEROL (test code = 2210) 308 MG/DL TRIGLYCERIDES (test code = 2232) 280 MG/DL HDL CHOLESTEROL (test code = 2220) 66 MG/DL CALC LDL CHOL (test code = 2237) 192 MG/DL RISK RATIO LDL/HDL (test code = 2.91 RATIO 2238) CBC W/AUTO [id number] 00:00:00 Test Item Value Reference Range Interpretation [...] NUCLEATED RBCS (test code = 0.00 K/UL 46047) CBC W/AUTO [id number] 00:00:00 Test Item Value Reference Range Interpretation [...] NUCLEATED RBCS (test code = 0.00 K/UL 81943) CBC W/AUTO [id number] 00:00:00 Test Item Value Reference Range Interpretation [...] NUCLEATED RBCS (test code = 0.00 K/UL 13951) COMPREHENSIVE METABOLIC [id number] 00:00:00 Test Item Value Reference Range Interpretation Comments GLUCOSE (test code = 2217) 137 MG/DL BUN (test code = 2208) 56 MG/DL CREATININE (test code = 2214) 10.21 MG/DL eGFR AMER. (test code = 6 ML/MIN/1.73 31568) eGFR NON- AMER. (test 5 ML/MIN/1.73 code = 60361) CALC BUN/CREAT (test code = 5 RATIO [...] code = 2219) 16 U/L COMPREHENSIVE METABOLIC [id number] 00:00:00 Test Item Value Reference Range Interpretation Comments GLUCOSE (test code = 2217) 137 MG/DL BUN (test code = 2208) 56 MG/DL CREATININE (test code = 2214) 10.21 MG/DL eGFR AMER. (test code = 6 ML/MIN/1.73 20928) eGFR NON- AMER. (test 5 ML/MIN/1.73 code = 44789) CALC BUN/CREAT (test code = 5 RATIO [...] ALT (test code = 2219) 16 U/L [id number] 00:00:00 Test Item Value Reference Range Interpretation Comments TSH, THIRD GENERATION (test >100.000 UIU/ML code = 2821) [id number] 00:00:00 Test Item Value Reference Range Interpretation Comments TSH, THIRD GENERATION (test >100.000 UIU/ML code = 2821) [id number] 00:00:00 Test Item Value Reference Range Interpretation Comments TSH, THIRD GENERATION (test >100.000 UIU/ML code = 2821) [id number] 00:00:00 Test Item Value Reference Range Interpretation Comments TSH, THIRD GENERATION (test >100.000 UIU/ML code = 2821) [id number] 00:00:00 Test Item Value Reference Range Interpretation Comments TSH, THIRD GENERATION (test >100.000 UIU/ML code = 2821) LIPID [id number] 00:00:00 Test Item Value Reference Range Interpretation Comments CHOLESTEROL (test code = 2210) 308 MG/DL TRIGLYCERIDES (test code = 2232) 280 MG/DL HDL CHOLESTEROL (test code = 2220) 66 MG/DL CALC LDL CHOL (test code = 2237) 192 MG/DL RISK RATIO LDL/HDL (test code = 2.91 RATIO 2238) LIPID [id number] 00:00:00 Test Item Value Reference Range Interpretation Comments CHOLESTEROL (test code = 2210) 308 MG/DL TRIGLYCERIDES (test code = 2232) 280 MG/DL HDL CHOLESTEROL (test code = 2220) 66 MG/DL CALC LDL CHOL (test code = 2237) 192 MG/DL RISK RATIO LDL/HDL (test code = 2.91 RATIO 2238) CBC W/AUTO [id number] 00:00:00 Test Item Value Reference Range Interpretation [...] NUCLEATED RBCS (test code = 0.00 K/UL 36713) CBC W/AUTO [id number] 00:00:00 Test Item Value Reference Range Interpretation [...] NUCLEATED RBCS (test code = 0.00 K/UL 71805) CBC W/AUTO [id number] 00:00:00 Test Item Value Reference Range Interpretation [...] NUCLEATED RBCS (test code = 0.00 K/UL 60767) COMPREHENSIVE METABOLIC [id number] 00:00:00 Test Item Value Reference Range Interpretation Comments GLUCOSE (test code = 2217) 137 MG/DL BUN (test code = 2208) 56 MG/DL CREATININE (test code = 2214) 10.21 MG/DL eGFR AMER. (test code = 6 ML/MIN/1.73 15827) eGFR NON- AMER. (test 5 ML/MIN/1.73 code = 36626) CALC BUN/CREAT (test code = 5 RATIO [...] code = 2219) 16 U/L COMPREHENSIVE METABOLIC [id number] 00:00:00 Test Item Value Reference Range Interpretation Comments GLUCOSE (test code = 2217) 137 MG/DL BUN (test code = 2208) 56 MG/DL CREATININE (test code = 2214) 10.21 MG/DL eGFR AMER. (test code = 6 ML/MIN/1.73 20335) eGFR NON- AMER. (test 5 ML/MIN/1.73 code = 48691) CALC BUN/CREAT (test code = 5 RATIO [...] (test code = 2219) 16 U/L LIPID [id number] 00:00:00 Test Item Value Reference Range Interpretation Comments CHOLESTEROL (test code = 2210) 308 MG/DL TRIGLYCERIDES (test code = 2232) 280 MG/DL HDL CHOLESTEROL (test code = 2220) 66 MG/DL CALC LDL CHOL (test code = 2237) 192 MG/DL RISK RATIO LDL/HDL (test code = 2.91 RATIO 2238) CBC W/AUTO [id number] 00:00:00 Test Item Value Reference Range Interpretation [...] NUCLEATED RBCS (test code = 0.00 K/UL 93769) CBC W/AUTO [id number] 00:00:00 Test Item Value Reference Range Interpretation [...] NUCLEATED RBCS (test code = 0.00 K/UL 64736) COMPREHENSIVE METABOLIC [id number] 00:00:00 Test Item Value Reference Range Interpretation Comments GLUCOSE (test code = 2217) 137 MG/DL BUN (test code = 2208) 56 MG/DL CREATININE (test code = 2214) 10.21 MG/DL eGFR AMER. (test code = 6 ML/MIN/1.73 10074) eGFR NON- AMER. (test 5 ML/MIN/1.73 code = 05954) CALC BUN/CREAT (test code = 5 RATIO [...] ALT (test code = 2219) 16 U/L [id number] 00:00:00 Test Item Value Reference Range Interpretation Comments TSH, THIRD GENERATION (test >100.000 UIU/ML code = 2821) [id number] 00:00:00 Test Item Value Reference Range Interpretation Comments TSH, THIRD GENERATION (test >100.000 UIU/ML code = 2821) [id number] 00:00:00 Test Item Value Reference Range Interpretation Comments TSH, THIRD GENERATION (test >100.000 UIU/ML code = 2821) LIPID [id number] 00:00:00 Test Item Value Reference Range Interpretation Comments CHOLESTEROL (test code = 2210) 308 MG/DL TRIGLYCERIDES (test code = 2232) 280 MG/DL HDL CHOLESTEROL (test code = 2220) 66 MG/DL CALC LDL CHOL (test code = 2237) 192 MG/DL RISK RATIO LDL/HDL (test code = 2.91 RATIO 2238) LIPID [id number] 00:00:00 Test Item Value Reference Range Interpretation Comments CHOLESTEROL (test code = 2210) 308 MG/DL TRIGLYCERIDES (test code = 2232) 280 MG/DL HDL CHOLESTEROL (test code = 2220) 66 MG/DL CALC LDL CHOL (test code = 2237) 192 MG/DL RISK RATIO LDL/HDL (test code = 2.91 RATIO 2238) CBC W/AUTO [id number] 00:00:00 Test Item Value Reference Range Interpretation [...] NUCLEATED RBCS (test code = 0.00 K/UL 08455) CBC W/AUTO [id number] 00:00:00 Test Item Value Reference Range Interpretation [...] NUCLEATED RBCS (test code = 0.00 K/UL 88023) CBC W/AUTO [id number] 00:00:00 Test Item Value Reference Range Interpretation [...] NUCLEATED RBCS (test code = 0.00 K/UL 14930) COMPREHENSIVE METABOLIC [id number] 00:00:00 Test Item Value Reference Range Interpretation Comments GLUCOSE (test code = 2217) 137 MG/DL BUN (test code = 2208) 56 MG/DL CREATININE (test code = 2214) 10.21 MG/DL eGFR AMER. (test code = 6 ML/MIN/1.73 33818) eGFR NON- AMER. (test 5 ML/MIN/1.73 code = 48970) CALC BUN/CREAT (test code = 5 RATIO [...] code = 2219) 16 U/L COMPREHENSIVE METABOLIC [id number] 00:00:00 Test Item Value Reference Range Interpretation Comments GLUCOSE (test code = 2217) 137 MG/DL BUN (test code = 2208) 56 MG/DL CREATININE (test code = 2214) 10.21 MG/DL eGFR AMER. (test code = 6 ML/MIN/1.73 78023) eGFR NON- AMER. (test 5 ML/MIN/1.73 code = 92092) CALC BUN/CREAT (test code = 5 RATIO [...] ALT (test code = 2219) 16 U/L [id number] 00:00:00 Test Item Value Reference Range Interpretation Comments TSH, THIRD GENERATION (test >100.000 UIU/ML code = 2821) [id number] 00:00:00 Test Item Value Reference Range Interpretation Comments TSH, THIRD GENERATION (test >100.000 UIU/ML code = 2821) [id number] 00:00:00 Test Item Value Reference Range Interpretation Comments TSH, THIRD GENERATION (test >100.000 UIU/ML code = 2821) LIPID [id number] 00:00:00 Test Item Value Reference Range Interpretation Comments CHOLESTEROL (test code = 2210) 308 MG/DL TRIGLYCERIDES (test code = 2232) 280 MG/DL HDL CHOLESTEROL (test code = 2220) 66 MG/DL CALC LDL CHOL (test code = 2237) 192 MG/DL RISK RATIO LDL/HDL (test code = 2.91 RATIO 2238) LIPID [id number] 00:00:00 Test Item Value Reference Range Interpretation Comments CHOLESTEROL (test code = 2210) 308 MG/DL TRIGLYCERIDES (test code = 2232) 280 MG/DL HDL CHOLESTEROL (test code = 2220) 66 MG/DL CALC LDL CHOL (test code = 2237) 192 MG/DL RISK RATIO LDL/HDL (test code = 2.91 RATIO 2238) CBC W/AUTO [id number] 00:00:00 Test Item Value Reference Range Interpretation [...] NUCLEATED RBCS (test code = 0.00 K/UL 49094) CBC W/AUTO [id number] 00:00:00 Test Item Value Reference Range Interpretation [...] NUCLEATED RBCS (test code = 0.00 K/UL 40801) CBC W/AUTO [id number] 00:00:00 Test Item Value Reference Range Interpretation [...] NUCLEATED RBCS (test code = 0.00 K/UL 56007) COMPREHENSIVE METABOLIC [id number] 00:00:00 Test Item Value Reference Range Interpretation Comments GLUCOSE (test code = 2217) 137 MG/DL BUN (test code = 2208) 56 MG/DL CREATININE (test code = 2214) 10.21 MG/DL eGFR AMER. (test code = 6 ML/MIN/1.73 41271) eGFR NON- AMER. (test 5 ML/MIN/1.73 code = 33361) CALC BUN/CREAT (test code = 5 RATIO [...] code = 2219) 16 U/L COMPREHENSIVE METABOLIC [id number] 00:00:00 Test Item Value Reference Range Interpretation Comments GLUCOSE (test code = 2217) 137 MG/DL BUN (test code = 2208) 56 MG/DL CREATININE (test code = 2214) 10.21 MG/DL eGFR AMER. (test code = 6 ML/MIN/1.73 80168) eGFR NON- AMER. (test 5 ML/MIN/1.73 code = 13493) CALC BUN/CREAT (test code = 5 RATIO [...] ALT (test code = 2219) 16 U/L [id number] 00:00:00 Test Item Value Reference Range Interpretation Comments TSH, THIRD GENERATION (test >100.000 UIU/ML code = 2821) [id number] 00:00:00 Test Item Value Reference Range Interpretation Comments TSH, THIRD GENERATION (test >100.000 UIU/ML code = 2821) [id number] 00:00:00 Test Item Value Reference Range Interpretation Comments TSH, THIRD GENERATION (test >100.000 UIU/ML code = 2821) LIPID [id number] 00:00:00 Test Item Value Reference Range Interpretation Comments CHOLESTEROL (test code = 2210) 308 MG/DL TRIGLYCERIDES (test code = 2232) 280 MG/DL HDL CHOLESTEROL (test code = 2220) 66 MG/DL CALC LDL CHOL (test code = 2237) 192 MG/DL RISK RATIO LDL/HDL (test code = 2.91 RATIO 2238) LIPID [id number] 00:00:00 Test Item Value Reference Range Interpretation Comments CHOLESTEROL (test code = 2210) 308 MG/DL TRIGLYCERIDES (test code = 2232) 280 MG/DL HDL CHOLESTEROL (test code = 2220) 66 MG/DL CALC LDL CHOL (test code = 2237) 192 MG/DL RISK RATIO LDL/HDL (test code = 2.91 RATIO 2238) CBC W/AUTO [id number] 00:00:00 Test Item Value Reference Range Interpretation [...] NUCLEATED RBCS (test code = 0.00 K/UL 34961) CBC W/AUTO [id number] 00:00:00 Test Item Value Reference Range Interpretation [...] NUCLEATED RBCS (test code = 0.00 K/UL 97050) CBC W/AUTO [id number] 00:00:00 Test Item Value Reference Range Interpretation [...] NUCLEATED RBCS (test code = 0.00 K/UL 46578) COMPREHENSIVE METABOLIC [id number] 00:00:00 Test Item Value Reference Range Interpretation Comments GLUCOSE (test code = 2217) 137 MG/DL BUN (test code = 2208) 56 MG/DL CREATININE (test code = 2214) 10.21 MG/DL eGFR AMER. (test code = 6 ML/MIN/1.73 84947) eGFR NON- AMER. (test 5 ML/MIN/1.73 code = 69509) CALC BUN/CREAT (test code = 5 RATIO [...] code = 2219) 16 U/L COMPREHENSIVE METABOLIC [id number] 00:00:00 Test Item Value Reference Range Interpretation Comments GLUCOSE (test code = 2217) 137 MG/DL BUN (test code = 2208) 56 MG/DL CREATININE (test code = 2214) 10.21 MG/DL eGFR AMER. (test code = 6 ML/MIN/1.73 70916) eGFR NON- AMER. (test 5 ML/MIN/1.73 code = 39743) CALC BUN/CREAT (test code = 5 RATIO [...] ALT (test code = 2219) 16 U/L [id number] 00:00:00 Test Item Value Reference Range Interpretation Comments TSH, THIRD GENERATION (test >100.000 UIU/ML code = 2821) [id number] 00:00:00 Test Item Value Reference Range Interpretation Comments TSH, THIRD GENERATION (test >100.000 UIU/ML code = 2821) [id number] 00:00:00 Test Item Value Reference Range Interpretation Comments TSH, THIRD GENERATION (test >100.000 UIU/ML code = 2821) LIPID [id number] 00:00:00 Test Item Value Reference Range Interpretation Comments CHOLESTEROL (test code = 2210) 308 MG/DL TRIGLYCERIDES (test code = 2232) 280 MG/DL HDL CHOLESTEROL (test code = 2220) 66 MG/DL CALC LDL CHOL (test code = 2237) 192 MG/DL RISK RATIO LDL/HDL (test code = 2.91 RATIO 2238) LIPID [id number] 00:00:00 Test Item Value Reference Range Interpretation Comments CHOLESTEROL (test code = 2210) 308 MG/DL TRIGLYCERIDES (test code = 2232) 280 MG/DL HDL CHOLESTEROL (test code = 2220) 66 MG/DL CALC LDL CHOL (test code = 2237) 192 MG/DL RISK RATIO LDL/HDL (test code = 2.91 RATIO 2238) CBC W/AUTO [id number] 00:00:00 Test Item Value Reference Range Interpretation [...] NUCLEATED RBCS (test code = 0.00 K/UL 89885) CBC W/AUTO [id number] 00:00:00 Test Item Value Reference Range Interpretation [...] NUCLEATED RBCS (test code = 0.00 K/UL 00192) CBC W/AUTO [id number] 00:00:00 Test Item Value Reference Range Interpretation [...] NUCLEATED RBCS (test code = 0.00 K/UL 73222) COMPREHENSIVE METABOLIC [id number] 00:00:00 Test Item Value Reference Range Interpretation Comments GLUCOSE (test code = 2217) 137 MG/DL BUN (test code = 2208) 56 MG/DL CREATININE (test code = 2214) 10.21 MG/DL eGFR AMER. (test code = 6 ML/MIN/1.73 36828) eGFR NON- AMER. (test 5 ML/MIN/1.73 code = 15692) CALC BUN/CREAT (test code = 5 RATIO [...] code = 2219) 16 U/L COMPREHENSIVE METABOLIC [id number] 00:00:00 Test Item Value Reference Range Interpretation Comments GLUCOSE (test code = 2217) 137 MG/DL BUN (test code = 2208) 56 MG/DL CREATININE (test code = 2214) 10.21 MG/DL eGFR AMER. (test code = 6 ML/MIN/1.73 97966) eGFR NON- AMER. (test 5 ML/MIN/1.73 code = 25653) CALC BUN/CREAT (test code = 5 RATIO [...] ALT (test code = 2219) 16 U/L [id number] 00:00:00 Test Item Value Reference Range Interpretation Comments TSH, THIRD GENERATION (test >100.000 UIU/ML code = 2821) [id number] 00:00:00 Test Item Value Reference Range Interpretation Comments TSH, THIRD GENERATION (test >100.000 UIU/ML code = 2821) [id number] 00:00:00 Test Item Value Reference Range Interpretation Comments TSH, THIRD GENERATION (test >100.000 UIU/ML code = 2821) LIPID [id number] 00:00:00 Test Item Value Reference Range Interpretation Comments CHOLESTEROL (test code = 2210) 308 MG/DL TRIGLYCERIDES (test code = 2232) 280 MG/DL HDL CHOLESTEROL (test code = 2220) 66 MG/DL CALC LDL CHOL (test code = 2237) 192 MG/DL RISK RATIO LDL/HDL (test code = 2.91 RATIO 2238) LIPID [id number] 00:00:00 Test Item Value Reference Range Interpretation Comments CHOLESTEROL (test code = 2210) 308 MG/DL TRIGLYCERIDES (test code = 2232) 280 MG/DL HDL CHOLESTEROL (test code = 2220) 66 MG/DL CALC LDL CHOL (test code = 2237) 192 MG/DL RISK RATIO LDL/HDL (test code = 2.91 RATIO 2238) CBC W/AUTO [id number] 00:00:00 Test Item Value Reference Range Interpretation [...] NUCLEATED RBCS (test code = 0.00 K/UL 18199) CBC W/AUTO [id number] 00:00:00 Test Item Value Reference Range Interpretation [...] NUCLEATED RBCS (test code = 0.00 K/UL 90504) CBC W/AUTO [id number] 00:00:00 Test Item Value Reference Range Interpretation [...] NUCLEATED RBCS (test code = 0.00 K/UL 63201) COMPREHENSIVE METABOLIC [id number] 00:00:00 Test Item Value Reference Range Interpretation Comments GLUCOSE (test code = 2217) 137 MG/DL BUN (test code = 2208) 56 MG/DL CREATININE (test code = 2214) 10.21 MG/DL eGFR AMER. (test code = 6 ML/MIN/1.73 99588) eGFR NON- AMER. (test 5 ML/MIN/1.73 code = 73082) CALC BUN/CREAT (test code = 5 RATIO [...] code = 2219) 16 U/L COMPREHENSIVE METABOLIC [id number] 00:00:00 Test Item Value Reference Range Interpretation Comments GLUCOSE (test code = 2217) 137 MG/DL BUN (test code = 2208) 56 MG/DL CREATININE (test code = 2214) 10.21 MG/DL eGFR AMER. (test code = 6 ML/MIN/1.73 10672) eGFR NON- AMER. (test 5 ML/MIN/1.73 code = 41176) CALC BUN/CREAT (test code = 5 RATIO [...] ALKALINE PHOSPHATASE (test code 83 U/L = 4) AST (test code = 2218) 13 U/L ALT (test code = 2219) 16 U/L [id number] 00:00:00 Test Item Value Reference Range Interpretation Comments TSH, THIRD GENERATION (test >100.000 UIU/ML code = 2821) [id number] 00:00:00 Test Item Value Reference Range Interpretation Comments TSH, THIRD GENERATION (test >100.000 UIU/ML code = 2821) [id number] 00:00:00 Test Item Value Reference Range Interpretation Comments TSH, THIRD GENERATION (test >100.000 UIU/ML code = 2821) [id number] 00:00:00 Test Item Value Reference Range Interpretation Comments TSH, THIRD GENERATION (test >100.000 UIU/ML code = 2821) [id number] 00:00:00 Test Item Value Reference Range Interpretation Comments TSH, THIRD GENERATION (test >100.000 UIU/ML code = 2821) [id number] 00:00:00 Test Item Value Reference Range Interpretation Comments TSH, THIRD GENERATION (test >100.000 UIU/ML code = 2821) HEMOGLOBIN [id number] 00:00:00 Test Item Value Reference Range Interpretation Comments HEMOGLOBIN A1c (test code = 66291) 5.5 % HEMOGLOBIN [id number] 00:00:00 Test Item Value Reference Range Interpretation Comments HEMOGLOBIN A1c (test code = 24475) 5.5 % HEMOGLOBIN [id number] 00:00:00 Test Item Value Reference Range Interpretation Comments HEMOGLOBIN A1c (test code = 53352) 5.5 % HEMOGLOBIN [id number] 00:00:00 Test Item Value Reference Range Interpretation Comments HEMOGLOBIN A1c (test code = 80526) 5.5 % HEMOGLOBIN [id number] 00:00:00 Test Item Value Reference Range Interpretation Comments HEMOGLOBIN A1c (test code = 14741) 5.5 % [id number] 00:00:00 Test Item Value Reference Range Interpretation Comments TSH, THIRD GENERATION (test >100.000 UIU/ML code = 2821) [id number] 00:00:00 Test Item Value Reference Range Interpretation Comments TSH, THIRD GENERATION (test >100.000 UIU/ML code = 2821) [id number] 00:00:00 Test Item Value Reference Range Interpretation Comments TSH, THIRD GENERATION (test >100.000 UIU/ML code = 2821) [id number] 00:00:00 Test Item Value Reference Range Interpretation Comments TSH, THIRD GENERATION (test >100.000 UIU/ML code = 2821) [id number] 00:00:00 Test Item Value Reference Range Interpretation Comments TSH, THIRD GENERATION (test >100.000 UIU/ML code = 2821) HEMOGLOBIN [id number] 00:00:00 Test Item Value Reference Range Interpretation Comments HEMOGLOBIN A1c (test code = 70620) 5.5 % HEMOGLOBIN [id number] 00:00:00 Test Item Value Reference Range Interpretation Comments HEMOGLOBIN A1c (test code = 27225) 5.5 % HEMOGLOBIN [id number] 00:00:00 Test Item Value Reference Range Interpretation Comments HEMOGLOBIN A1c (test code = 94549) 5.5 % [id number] 00:00:00 Test Item Value Reference Range Interpretation Comments TSH, THIRD GENERATION (test >100.000 UIU/ML code = 2821) [id number] 00:00:00 Test Item Value Reference Range Interpretation Comments TSH, THIRD GENERATION (test >100.000 UIU/ML code = 2821) [id number] 00:00:00 Test Item Value Reference Range Interpretation Comments TSH, THIRD GENERATION (test >100.000 UIU/ML code = 2821) HEMOGLOBIN [id number] 00:00:00 Test Item Value Reference Range Interpretation Comments HEMOGLOBIN A1c (test code = 46639) 5.5 % HEMOGLOBIN [id number] 00:00:00 Test Item Value Reference Range Interpretation Comments HEMOGLOBIN A1c (test code = 22390) 5.5 % HEMOGLOBIN [id number] 00:00:00 Test Item Value Reference Range Interpretation Comments HEMOGLOBIN A1c (test code = 10586) 5.5 % [id number] 00:00:00 Test Item Value Reference Range Interpretation Comments TSH, THIRD GENERATION (test >100.000 UIU/ML code = 2821) [id number] 00:00:00 Test Item Value Reference Range Interpretation Comments TSH, THIRD GENERATION (test >100.000 UIU/ML code = 2821) [id number] 00:00:00 Test Item Value Reference Range Interpretation Comments TSH, THIRD GENERATION (test >100.000 UIU/ML code = 2821) HEMOGLOBIN [id number] 00:00:00 Test Item Value Reference Range Interpretation Comments HEMOGLOBIN A1c (test code = 38240) 5.5 % HEMOGLOBIN [id number] 00:00:00 Test Item Value Reference Range Interpretation Comments HEMOGLOBIN A1c (test code = 92359) 5.5 % HEMOGLOBIN [id number] 00:00:00 Test Item Value Reference Range Interpretation Comments HEMOGLOBIN A1c (test code = 03285) 5.5 % [id number] 00:00:00 Test Item Value Reference Range Interpretation Comments TSH, THIRD GENERATION (test >100.000 UIU/ML code = 2821) [id number] 00:00:00 Test Item Value Reference Range Interpretation Comments TSH, THIRD GENERATION (test >100.000 UIU/ML code = 2821) [id number] 00:00:00 Test Item Value Reference Range Interpretation Comments TSH, THIRD GENERATION (test >100.000 UIU/ML code = 2821) HEMOGLOBIN [id number] 00:00:00 Test Item Value Reference Range Interpretation Comments HEMOGLOBIN A1c (test code = 83526) 5.5 % HEMOGLOBIN [id number] 00:00:00 Test Item Value Reference Range Interpretation Comments HEMOGLOBIN A1c (test code = 82155) 5.5 % HEMOGLOBIN [id number] 00:00:00 Test Item Value Reference Range Interpretation Comments HEMOGLOBIN A1c (test code = 95885) 5.5 % [id number] 00:00:00 Test Item Value Reference Range Interpretation Comments TSH, THIRD GENERATION (test >100.000 UIU/ML code = 2821) [id number] 00:00:00 Test Item Value Reference Range Interpretation Comments TSH, THIRD GENERATION (test >100.000 UIU/ML code = 2821) [id number] 00:00:00 Test Item Value Reference Range Interpretation Comments TSH, THIRD GENERATION (test >100.000 UIU/ML code = 2821) HEMOGLOBIN [id number] 00:00:00 Test Item Value Reference Range Interpretation Comments HEMOGLOBIN A1c (test code = 58516) 5.5 % HEMOGLOBIN [id number] 00:00:00 Test Item Value Reference Range Interpretation Comments HEMOGLOBIN A1c (test code = 14732) 5.5 % HEMOGLOBIN [id number] 00:00:00 Test Item Value Reference Range Interpretation Comments HEMOGLOBIN A1c (test code = 04157) 5.5 % [id number] 00:00:00 Test Item Value Reference Range Interpretation Comments TSH, THIRD GENERATION (test >100.000 UIU/ML code = 2821) [id number] 00:00:00 Test Item Value Reference Range Interpretation Comments TSH, THIRD GENERATION (test >100.000 UIU/ML code = 2821) [id number] 00:00:00 Test Item Value Reference Range Interpretation Comments TSH, THIRD GENERATION (test >100.000 UIU/ML code = 2821) HEMOGLOBIN [id number] 00:00:00 Test Item Value Reference Range Interpretation Comments HEMOGLOBIN A1c (test code = 49893) 5.5 % HEMOGLOBIN [id number] 00:00:00 Test Item Value Reference Range Interpretation Comments HEMOGLOBIN A1c (test code = 54745) 5.5 % HEMOGLOBIN [id number] 00:00:00 Test Item Value Reference Range Interpretation Comments HEMOGLOBIN A1c (test code = 05451) 5.5 % COMPREHENSIVE METABOLIC [id number] 00:00:00 Test Item Value Reference Range Interpretation Comments GLUCOSE (test code = 2217) 228 MG/DL BUN (test code = 2208) 23 MG/DL CREATININE (test code = 2214) 5.99 MG/DL eGFR AMER. (test code 11 ML/MIN/1.73 = 44657) eGFR NON- AMER. (test 10 ML/MIN/1.73 code = 72545) CALC BUN/CREAT (test code = 4 RATIO [...] code = 2219) 24 U/L COMPREHENSIVE METABOLIC [id number] 00:00:00 Test Item Value Reference Range Interpretation Comments GLUCOSE (test code = 2217) 228 MG/DL BUN (test code = 2208) 23 MG/DL CREATININE (test code = 2214) 5.99 MG/DL eGFR AMER. (test code 11 ML/MIN/1.73 = 07170) eGFR NON- AMER. (test 10 ML/MIN/1.73 code = 47945) CALC BUN/CREAT (test code = 4 RATIO [...] (test code = 2219) 24 U/L LIPID [id number] 00:00:00 Test Item Value Reference Range Interpretation Comments CHOLESTEROL (test code = 2210) 335 MG/DL TRIGLYCERIDES (test code = 2232) 446 MG/DL HDL CHOLESTEROL (test code = 73 MG/DL 2220) CALC LDL CHOL (test code = 2237) (NOTE) MG/DL RISK RATIO LDL/HDL (test code = (NOTE) RATIO 2238) LIPID [id number] 00:00:00 Test Item Value Reference Range Interpretation Comments CHOLESTEROL (test code = 2210) 335 MG/DL TRIGLYCERIDES (test code = 2232) 446 MG/DL HDL CHOLESTEROL (test code = 73 MG/DL 2220) CALC LDL CHOL (test code = 2237) (NOTE) MG/DL RISK RATIO LDL/HDL (test code = (NOTE) RATIO 2238) [id number] 00:00:00 Test Item Value Reference Range Interpretation Comments TSH, THIRD GENERATION (test >100.000 UIU/ML code = 2821) [id number] 00:00:00 Test Item Value Reference Range Interpretation Comments TSH, THIRD GENERATION (test >100.000 UIU/ML code = 2821) [id number] 00:00:00 Test Item Value Reference Range Interpretation Comments TSH, THIRD GENERATION (test >100.000 UIU/ML code = 2821) CBC W/AUTO [id number] 00:00:00 Test Item Value Reference Range Interpretation [...] code = 1015) 298 K/UL CBC W/AUTO [id number] 00:00:00 Test Item Value Reference Range Interpretation [...] code = 1015) 298 K/UL CBC W/AUTO [id number] 00:00:00 Test Item Value Reference Range Interpretation [...] code = 1015) 298 K/UL CBC W/AUTO [id number] 00:00:00 Test Item Value Reference Range Interpretation [...] code = 1015) 298 K/UL CBC W/AUTO [id number] 00:00:00 Test Item Value Reference Range Interpretation [...] code = 1015) 298 K/UL COMPREHENSIVE METABOLIC [id number] 00:00:00 Test Item Value Reference Range Interpretation Comments GLUCOSE (test code = 2217) 228 MG/DL BUN (test code = 2208) 23 MG/DL CREATININE (test code = 2214) 5.99 MG/DL eGFR AMER. (test code 11 ML/MIN/1.73 = 96285) eGFR NON- AMER. (test 10 ML/MIN/1.73 code = 43351) CALC BUN/CREAT (test code = 4 RATIO [...] code = 2219) 24 U/L COMPREHENSIVE METABOLIC [id number] 00:00:00 Test Item Value Reference Range Interpretation Comments GLUCOSE (test code = 2217) 228 MG/DL BUN (test code = 2208) 23 MG/DL CREATININE (test code = 2214) 5.99 MG/DL eGFR AMER. (test code 11 ML/MIN/1.73 = 18748) eGFR NON- AMER. (test 10 ML/MIN/1.73 code = 61116) CALC BUN/CREAT (test code = 4 RATIO [...] (test code = 2219) 24 U/L LIPID [id number] 00:00:00 Test Item Value Reference Range Interpretation Comments CHOLESTEROL (test code = 2210) 335 MG/DL TRIGLYCERIDES (test code = 2232) 446 MG/DL HDL CHOLESTEROL (test code = 73 MG/DL 2219) CALC LDL CHOL (test code = 2237) (NOTE) MG/DL RISK RATIO LDL/HDL (test code = (NOTE) RATIO 2238) LIPID [id number] 00:00:00 Test Item Value Reference Range Interpretation Comments CHOLESTEROL (test code = 2210) 335 MG/DL TRIGLYCERIDES (test code = 2232) 446 MG/DL HDL CHOLESTEROL (test code = 73 MG/DL 0) CALC LDL CHOL (test code = 2237) (NOTE) MG/DL RISK RATIO LDL/HDL (test code = (NOTE) RATIO 2238) [id number] 00:00:00 Test Item Value Reference Range Interpretation Comments TSH, THIRD GENERATION (test >100.000 UIU/ML code = 2821) [id number] 00:00:00 Test Item Value Reference Range Interpretation Comments TSH, THIRD GENERATION (test >100.000 UIU/ML code = 2821) [id number] 00:00:00 Test Item Value Reference Range Interpretation Comments TSH, THIRD GENERATION (test >100.000 UIU/ML code = 2821) COMPREHENSIVE METABOLIC [id number] 00:00:00 Test Item Value Reference Range Interpretation Comments GLUCOSE (test code = 2217) 228 MG/DL BUN (test code = 2208) 23 MG/DL CREATININE (test code = 2214) 5.99 MG/DL eGFR AMER. (test code 11 ML/MIN/1.73 = 79095) eGFR NON- AMER. (test 10 ML/MIN/1.73 code = 04777) CALC BUN/CREAT (test code = 4 RATIO [...] (test code = 2219) 24 U/L LIPID [id number] 00:00:00 Test Item Value Reference Range Interpretation Comments CHOLESTEROL (test code = 2210) 335 MG/DL TRIGLYCERIDES (test code = 2232) 446 MG/DL HDL CHOLESTEROL (test code = 73 MG/DL 2220) CALC LDL CHOL (test code = 2237) (NOTE) MG/DL RISK RATIO LDL/HDL (test code = (NOTE) RATIO 2238) [id number] 00:00:00 Test Item Value Reference Range Interpretation Comments TSH, THIRD GENERATION (test >100.000 UIU/ML code = 2821) [id number] 00:00:00 Test Item Value Reference Range Interpretation Comments TSH, THIRD GENERATION (test >100.000 UIU/ML code = 2821) CBC W/AUTO [id number] 00:00:00 Test Item Value Reference Range Interpretation [...] code = 1015) 298 K/UL CBC W/AUTO [id number] 00:00:00 Test Item Value Reference Range Interpretation [...] code = 1015) 298 K/UL CBC W/AUTO [id number] 00:00:00 Test Item Value Reference Range Interpretation [...] code = 1015) 298 K/UL COMPREHENSIVE METABOLIC [id number] 00:00:00 Test Item Value Reference Range Interpretation Comments GLUCOSE (test code = 2217) 228 MG/DL BUN (test code = 2208) 23 MG/DL CREATININE (test code = 2214) 5.99 MG/DL eGFR AMER. (test code 11 ML/MIN/1.73 = 46331) eGFR NON- AMER. (test 10 ML/MIN/1.73 code = 30273) CALC BUN/CREAT (test code = 4 RATIO [...] code = 2219) 24 U/L COMPREHENSIVE METABOLIC [id number] 00:00:00 Test Item Value Reference Range Interpretation Comments GLUCOSE (test code = 2217) 228 MG/DL BUN (test code = 2208) 23 MG/DL CREATININE (test code = 2214) 5.99 MG/DL eGFR AMER. (test code 11 ML/MIN/1.73 = 26049) eGFR NON- AMER. (test 10 ML/MIN/1.73 code = 71400) CALC BUN/CREAT (test code = 4 RATIO [...] (test code = 2219) 24 U/L LIPID [id number] 00:00:00 Test Item Value Reference Range Interpretation Comments CHOLESTEROL (test code = 2210) 335 MG/DL TRIGLYCERIDES (test code = 2232) 446 MG/DL HDL CHOLESTEROL (test code = 73 MG/DL 2220) CALC LDL CHOL (test code = 2237) (NOTE) MG/DL RISK RATIO LDL/HDL (test code = (NOTE) RATIO 2238) LIPID [id number] 00:00:00 Test Item Value Reference Range Interpretation Comments CHOLESTEROL (test code = 2210) 335 MG/DL TRIGLYCERIDES (test code = 2232) 446 MG/DL HDL CHOLESTEROL (test code = 73 MG/DL 2220) CALC LDL CHOL (test code = 2237) (NOTE) MG/DL RISK RATIO LDL/HDL (test code = (NOTE) RATIO 2238) [id number] 00:00:00 Test Item Value Reference Range Interpretation Comments TSH, THIRD GENERATION (test >100.000 UIU/ML code = 2821) [id number] 00:00:00 Test Item Value Reference Range Interpretation Comments TSH, THIRD GENERATION (test >100.000 UIU/ML code = 2821) [id number] 00:00:00 Test Item Value Reference Range Interpretation Comments TSH, THIRD GENERATION (test >100.000 UIU/ML code = 2821) CBC W/AUTO [id number] 00:00:00 Test Item Value Reference Range Interpretation [...] code = 1015) 298 K/UL CBC W/AUTO [id number] 00:00:00 Test Item Value Reference Range Interpretation [...] code = 1015) 298 K/UL CBC W/AUTO [id number] 00:00:00 Test Item Value Reference Range Interpretation [...] code = 1015) 298 K/UL COMPREHENSIVE METABOLIC [id number] 00:00:00 Test Item Value Reference Range Interpretation Comments GLUCOSE (test code = 2217) 228 MG/DL BUN (test code = 2208) 23 MG/DL CREATININE (test code = 2214) 5.99 MG/DL eGFR AMER. (test code 11 ML/MIN/1.73 = 07306) eGFR NON- AMER. (test 10 ML/MIN/1.73 code = 83193) CALC BUN/CREAT (test code = 4 RATIO [...] code = 2219) 24 U/L COMPREHENSIVE METABOLIC [id number] 00:00:00 Test Item Value Reference Range Interpretation Comments GLUCOSE (test code = 2217) 228 MG/DL BUN (test code = 2208) 23 MG/DL CREATININE (test code = 2214) 5.99 MG/DL eGFR AMER. (test code 11 ML/MIN/1.73 = 19963) eGFR NON- AMER. (test 10 ML/MIN/1.73 code = 81206) CALC BUN/CREAT (test code = 4 RATIO [...] (test code = 2219) 24 U/L LIPID [id number] 00:00:00 Test Item Value Reference Range Interpretation Comments CHOLESTEROL (test code = 2210) 335 MG/DL TRIGLYCERIDES (test code = 2232) 446 MG/DL HDL CHOLESTEROL (test code = 73 MG/DL 2220) CALC LDL CHOL (test code = 2237) (NOTE) MG/DL RISK RATIO LDL/HDL (test code = (NOTE) RATIO 2238) LIPID [id number] 00:00:00 Test Item Value Reference Range Interpretation Comments CHOLESTEROL (test code = 2210) 335 MG/DL TRIGLYCERIDES (test code = 2232) 446 MG/DL HDL CHOLESTEROL (test code = 73 MG/DL 2220) CALC LDL CHOL (test code = 2237) (NOTE) MG/DL RISK RATIO LDL/HDL (test code = (NOTE) RATIO 2238) [id number] 00:00:00 Test Item Value Reference Range Interpretation Comments TSH, THIRD GENERATION (test >100.000 UIU/ML code = 2821) [id number] 00:00:00 Test Item Value Reference Range Interpretation Comments TSH, THIRD GENERATION (test >100.000 UIU/ML code = 2821) [id number] 00:00:00 Test Item Value Reference Range Interpretation Comments TSH, THIRD GENERATION (test >100.000 UIU/ML code = 2821) CBC W/AUTO [id number] 00:00:00 Test Item Value Reference Range Interpretation [...] code = 1015) 298 K/UL CBC W/AUTO [id number] 00:00:00 Test Item Value Reference Range Interpretation [...] code = 1015) 298 K/UL CBC W/AUTO [id number] 00:00:00 Test Item Value Reference Range Interpretation [...] code = 1015) 298 K/UL COMPREHENSIVE METABOLIC [id number] 00:00:00 Test Item Value Reference Range Interpretation Comments GLUCOSE (test code = 2217) 228 MG/DL BUN (test code = 2208) 23 MG/DL CREATININE (test code = 2214) 5.99 MG/DL eGFR AMER. (test code 11 ML/MIN/1.73 = 90431) eGFR NON- AMER. (test 10 ML/MIN/1.73 code = 45511) CALC BUN/CREAT (test code = 4 RATIO [...] code = 2219) 24 U/L COMPREHENSIVE METABOLIC [id number] 00:00:00 Test Item Value Reference Range Interpretation Comments GLUCOSE (test code = 2217) 228 MG/DL BUN (test code = 2208) 23 MG/DL CREATININE (test code = 2214) 5.99 MG/DL eGFR AMER. (test code 11 ML/MIN/1.73 = 09447) eGFR NON- AMER. (test 10 ML/MIN/1.73 code = 45795) CALC BUN/CREAT (test code = 4 RATIO [...] (test code = 2219) 24 U/L LIPID [id number] 00:00:00 Test Item Value Reference Range Interpretation Comments CHOLESTEROL (test code = 2210) 335 MG/DL TRIGLYCERIDES (test code = 2232) 446 MG/DL HDL CHOLESTEROL (test code = 73 MG/DL 2220) CALC LDL CHOL (test code = 2237) (NOTE) MG/DL RISK RATIO LDL/HDL (test code = (NOTE) RATIO 2238) LIPID [id number] 00:00:00 Test Item Value Reference Range Interpretation Comments CHOLESTEROL (test code = 2210) 335 MG/DL TRIGLYCERIDES (test code = 2232) 446 MG/DL HDL CHOLESTEROL (test code = 73 MG/DL 2220) CALC LDL CHOL (test code = 2237) (NOTE) MG/DL RISK RATIO LDL/HDL (test code = (NOTE) RATIO 2238) [id number] 00:00:00 Test Item Value Reference Range Interpretation Comments TSH, THIRD GENERATION (test >100.000 UIU/ML code = 2821) [id number] 00:00:00 Test Item Value Reference Range Interpretation Comments TSH, THIRD GENERATION (test >100.000 UIU/ML code = 2821) [id number] 00:00:00 Test Item Value Reference Range Interpretation Comments TSH, THIRD GENERATION (test >100.000 UIU/ML code = 2821) CBC W/AUTO [id number] 00:00:00 Test Item Value Reference Range Interpretation [...] code = 1015) 298 K/UL CBC W/AUTO [id number] 00:00:00 Test Item Value Reference Range Interpretation [...] code = 1015) 298 K/UL CBC W/AUTO [id number] 00:00:00 Test Item Value Reference Range Interpretation [...] code = 1015) 298 K/UL COMPREHENSIVE METABOLIC [id number] 00:00:00 Test Item Value Reference Range Interpretation Comments GLUCOSE (test code = 2217) 228 MG/DL BUN (test code = 2208) 23 MG/DL CREATININE (test code = 2214) 5.99 MG/DL eGFR AMER. (test code 11 ML/MIN/1.73 = 96922) eGFR NON- AMER. (test 10 ML/MIN/1.73 code = 19334) CALC BUN/CREAT (test code = 4 RATIO [...] code = 2219) 24 U/L COMPREHENSIVE METABOLIC [id number] 00:00:00 Test Item Value Reference Range Interpretation Comments GLUCOSE (test code = 2217) 228 MG/DL BUN (test code = 2208) 23 MG/DL CREATININE (test code = 2214) 5.99 MG/DL eGFR AMER. (test code 11 ML/MIN/1.73 = 74340) eGFR NON- AMER. (test 10 ML/MIN/1.73 code = 54212) CALC BUN/CREAT (test code = 4 RATIO [...] (test code = 2219) 24 U/L LIPID [id number] 00:00:00 Test Item Value Reference Range Interpretation Comments CHOLESTEROL (test code = 2210) 335 MG/DL TRIGLYCERIDES (test code = 2232) 446 MG/DL HDL CHOLESTEROL (test code = 73 MG/DL 2220) CALC LDL CHOL (test code = 2237) (NOTE) MG/DL RISK RATIO LDL/HDL (test code = (NOTE) RATIO 2238) LIPID [id number] 00:00:00 Test Item Value Reference Range Interpretation Comments CHOLESTEROL (test code = 2210) 335 MG/DL TRIGLYCERIDES (test code = 2232) 446 MG/DL HDL CHOLESTEROL (test code = 73 MG/DL 2220) CALC LDL CHOL (test code = 2237) (NOTE) MG/DL RISK RATIO LDL/HDL (test code = (NOTE) RATIO 2238) [id number] 00:00:00 Test Item Value Reference Range Interpretation Comments TSH, THIRD GENERATION (test >100.000 UIU/ML code = 2821) [id number] 00:00:00 Test Item Value Reference Range Interpretation Comments TSH, THIRD GENERATION (test >100.000 UIU/ML code = 2821) [id number] 00:00:00 Test Item Value Reference Range Interpretation Comments TSH, THIRD GENERATION (test >100.000 UIU/ML code = 2821) CBC W/AUTO [id number] 00:00:00 Test Item Value Reference Range Interpretation [...] code = 1015) 298 K/UL CBC W/AUTO [id number] 00:00:00 Test Item Value Reference Range Interpretation [...] code = 1015) 298 K/UL CBC W/AUTO [id number] 00:00:00 Test Item Value Reference Range Interpretation [...] code = 1015) 298 K/UL COMPREHENSIVE METABOLIC [id number] 00:00:00 Test Item Value Reference Range Interpretation Comments GLUCOSE (test code = 2217) 228 MG/DL BUN (test code = 2208) 23 MG/DL CREATININE (test code = 2214) 5.99 MG/DL eGFR AMER. (test code 11 ML/MIN/1.73 = 42048) eGFR NON- AMER. (test 10 ML/MIN/1.73 code = 63371) CALC BUN/CREAT (test code = 4 RATIO [...] code = 2219) 24 U/L COMPREHENSIVE METABOLIC [id number] 00:00:00 Test Item Value Reference Range Interpretation Comments GLUCOSE (test code = 2217) 228 MG/DL BUN (test code = 2208) 23 MG/DL CREATININE (test code = 2214) 5.99 MG/DL eGFR AMER. (test code 11 ML/MIN/1.73 = 23871) eGFR NON- AMER. (test 10 ML/MIN/1.73 code = 54822) CALC BUN/CREAT (test code = 4 RATIO [...] (test code = 2219) 24 U/L LIPID [id number] 00:00:00 Test Item Value Reference Range Interpretation Comments CHOLESTEROL (test code = 2210) 335 MG/DL TRIGLYCERIDES (test code = 2232) 446 MG/DL HDL CHOLESTEROL (test code = 73 MG/DL 0) CALC LDL CHOL (test code = 2237) (NOTE) MG/DL RISK RATIO LDL/HDL (test code = (NOTE) RATIO 2238) LIPID [id number] 00:00:00 Test Item Value Reference Range Interpretation Comments CHOLESTEROL (test code = 2210) 335 MG/DL TRIGLYCERIDES (test code = 2232) 446 MG/DL HDL CHOLESTEROL (test code = 73 MG/DL 2220) CALC LDL CHOL (test code = 2237) (NOTE) MG/DL RISK RATIO LDL/HDL (test code = (NOTE) RATIO 2238) [id number] 00:00:00 Test Item Value Reference Range Interpretation Comments TSH, THIRD GENERATION (test >100.000 UIU/ML code = 2821) [id number] 00:00:00 Test Item Value Reference Range Interpretation Comments TSH, THIRD GENERATION (test >100.000 UIU/ML code = 2821) [id number] 00:00:00 Test Item Value Reference Range Interpretation Comments TSH, THIRD GENERATION (test >100.000 UIU/ML code = 2821) CBC W/AUTO [id number] 00:00:00 Test Item Value Reference Range Interpretation [...] code = 1015) 298 K/UL CBC W/AUTO [id number] 00:00:00 Test Item Value Reference Range Interpretation [...] code = 1015) 298 K/UL CBC W/AUTO [id number] 00:00:00 Test Item Value Reference Range Interpretation [...] COUNT (test code = 1015) 298 K/UL LIPID [id number] 00:00:00 Test Item Value Reference Range Interpretation Comments CHOLESTEROL (test code = 2210) 316 MG/DL TRIGLYCERIDES (test code = 2232) 547 MG/DL HDL CHOLESTEROL (test code = 54 MG/DL 2220) CALC LDL CHOL (test code = 2237) (NOTE) MG/DL RISK RATIO LDL/HDL (test code = (NOTE) RATIO 2238) LIPID [id number] 00:00:00 Test Item Value Reference Range Interpretation Comments CHOLESTEROL (test code = 2210) 316 MG/DL TRIGLYCERIDES (test code = 2232) 547 MG/DL HDL CHOLESTEROL (test code = 54 MG/DL 2220) CALC LDL CHOL (test code = 2237) (NOTE) MG/DL RISK RATIO LDL/HDL (test code = (NOTE) RATIO 2238) [id number] 00:00:00 Test Item Value Reference Range Interpretation Comments TSH, THIRD GENERATION (test >100.000 UIU/ML code = 2821) [id number] 00:00:00 Test Item Value Reference Range Interpretation Comments TSH, THIRD GENERATION (test >100.000 UIU/ML code = 2821) [id number] 00:00:00 Test Item Value Reference Range Interpretation Comments TSH, THIRD GENERATION (test >100.000 UIU/ML code = 2821) [id number] 00:00:00 Test Item Value Reference Range Interpretation Comments TSH, THIRD GENERATION (test >100.000 UIU/ML code = 2821) LIPID [id number] 00:00:00 Test Item Value Reference Range Interpretation Comments CHOLESTEROL (test code = 2210) 316 MG/DL TRIGLYCERIDES (test code = 2232) 547 MG/DL HDL CHOLESTEROL (test code = 54 MG/DL 2220) CALC LDL CHOL (test code = 2237) (NOTE) MG/DL RISK RATIO LDL/HDL (test code = (NOTE) RATIO 2238) LIPID [id number] 00:00:00 Test Item Value Reference Range Interpretation Comments CHOLESTEROL (test code = 2210) 316 MG/DL TRIGLYCERIDES (test code = 2232) 547 MG/DL HDL CHOLESTEROL (test code = 54 MG/DL 2220) CALC LDL CHOL (test code = 2237) (NOTE) MG/DL RISK RATIO LDL/HDL (test code = (NOTE) RATIO 2238) [id number] 00:00:00 Test Item Value Reference Range Interpretation Comments TSH, THIRD GENERATION (test >100.000 UIU/ML code = 2821) LIPID [id number] 00:00:00 Test Item Value Reference Range Interpretation Comments CHOLESTEROL (test code = 2210) 316 MG/DL TRIGLYCERIDES (test code = 2232) 547 MG/DL HDL CHOLESTEROL (test code = 54 MG/DL 2220) CALC LDL CHOL (test code = 2237) (NOTE) MG/DL RISK RATIO LDL/HDL (test code = (NOTE) RATIO 2238) [id number] 00:00:00 Test Item Value Reference Range Interpretation Comments TSH, THIRD GENERATION (test >100.000 UIU/ML code = 2821) [id number] 00:00:00 Test Item Value Reference Range Interpretation Comments TSH, THIRD GENERATION (test >100.000 UIU/ML code = 2821) [id number] 00:00:00 Test Item Value Reference Range Interpretation Comments TSH, THIRD GENERATION (test >100.000 UIU/ML code = 2821) LIPID [id number] 00:00:00 Test Item Value Reference Range Interpretation Comments CHOLESTEROL (test code = 2210) 316 MG/DL TRIGLYCERIDES (test code = 2232) 547 MG/DL HDL CHOLESTEROL (test code = 54 MG/DL 2220) CALC LDL CHOL (test code = 2237) (NOTE) MG/DL RISK RATIO LDL/HDL (test code = (NOTE) RATIO 2238) LIPID [id number] 00:00:00 Test Item Value Reference Range Interpretation Comments CHOLESTEROL (test code = 2210) 316 MG/DL TRIGLYCERIDES (test code = 2232) 547 MG/DL HDL CHOLESTEROL (test code = 54 MG/DL 2220) CALC LDL CHOL (test code = 2237) (NOTE) MG/DL RISK RATIO LDL/HDL (test code = (NOTE) RATIO 2238) [id number] 00:00:00 Test Item Value Reference Range Interpretation Comments TSH, THIRD GENERATION (test >100.000 UIU/ML code = 2821) [id number] 00:00:00 Test Item Value Reference Range Interpretation Comments TSH, THIRD GENERATION (test >100.000 UIU/ML code = 2821) [id number] 00:00:00 Test Item Value Reference Range Interpretation Comments TSH, THIRD GENERATION (test >100.000 UIU/ML code = 2821) LIPID [id number] 00:00:00 Test Item Value Reference Range Interpretation Comments CHOLESTEROL (test code = 2210) 316 MG/DL TRIGLYCERIDES (test code = 2232) 547 MG/DL HDL CHOLESTEROL (test code = 54 MG/DL 2220) CALC LDL CHOL (test code = 2237) (NOTE) MG/DL RISK RATIO LDL/HDL (test code = (NOTE) RATIO 2238) LIPID [id number] 00:00:00 Test Item Value Reference Range Interpretation Comments CHOLESTEROL (test code = 2210) 316 MG/DL TRIGLYCERIDES (test code = 2232) 547 MG/DL HDL CHOLESTEROL (test code = 54 MG/DL 2220) CALC LDL CHOL (test code = 2237) (NOTE) MG/DL RISK RATIO LDL/HDL (test code = (NOTE) RATIO 2238) [id number] 00:00:00 Test Item Value Reference Range Interpretation Comments TSH, THIRD GENERATION (test >100.000 UIU/ML code = 2821) [id number] 00:00:00 Test Item Value Reference Range Interpretation Comments TSH, THIRD GENERATION (test >100.000 UIU/ML code = 2821) [id number] 00:00:00 Test Item Value Reference Range Interpretation Comments TSH, THIRD GENERATION (test >100.000 UIU/ML code = 2821) LIPID [id number] 00:00:00 Test Item Value Reference Range Interpretation Comments CHOLESTEROL (test code = 2210) 316 MG/DL TRIGLYCERIDES (test code = 2232) 547 MG/DL HDL CHOLESTEROL (test code = 54 MG/DL 2220) CALC LDL CHOL (test code = 2237) (NOTE) MG/DL RISK RATIO LDL/HDL (test code = (NOTE) RATIO 2238) LIPID [id number] 00:00:00 Test Item Value Reference Range Interpretation Comments CHOLESTEROL (test code = 2210) 316 MG/DL TRIGLYCERIDES (test code = 2232) 547 MG/DL HDL CHOLESTEROL (test code = 54 MG/DL 2220) CALC LDL CHOL (test code = 2237) (NOTE) MG/DL RISK RATIO LDL/HDL (test code = (NOTE) RATIO 2238) [id number] 00:00:00 Test Item Value Reference Range Interpretation Comments TSH, THIRD GENERATION (test >100.000 UIU/ML code = 2821) [id number] 00:00:00 Test Item Value Reference Range Interpretation Comments TSH, THIRD GENERATION (test >100.000 UIU/ML code = 2821) [id number] 00:00:00 Test Item Value Reference Range Interpretation Comments TSH, THIRD GENERATION (test >100.000 UIU/ML code = 2821) LIPID [id number] 00:00:00 Test Item Value Reference Range Interpretation Comments CHOLESTEROL (test code = 2210) 316 MG/DL TRIGLYCERIDES (test code = 2232) 547 MG/DL HDL CHOLESTEROL (test code = 54 MG/DL 2220) CALC LDL CHOL (test code = 2237) (NOTE) MG/DL RISK RATIO LDL/HDL (test code = (NOTE) RATIO 2238) LIPID [id number] 00:00:00 Test Item Value Reference Range Interpretation Comments CHOLESTEROL (test code = 2210) 316 MG/DL TRIGLYCERIDES (test code = 2232) 547 MG/DL HDL CHOLESTEROL (test code = 54 MG/DL 2220) CALC LDL CHOL (test code = 2237) (NOTE) MG/DL RISK RATIO LDL/HDL (test code = (NOTE) RATIO 2238) [id number] 00:00:00 Test Item Value Reference Range Interpretation Comments TSH, THIRD GENERATION (test >100.000 UIU/ML code = 2821) [id number] 00:00:00 Test Item Value Reference Range Interpretation Comments TSH, THIRD GENERATION (test >100.000 UIU/ML code = 2821) [id number] 00:00:00 Test Item Value Reference Range Interpretation Comments TSH, THIRD GENERATION (test >100.000 UIU/ML code = 2821) LIPID [id number] 00:00:00 Test Item Value Reference Range Interpretation Comments CHOLESTEROL (test code = 2210) 316 MG/DL TRIGLYCERIDES (test code = 2232) 547 MG/DL HDL CHOLESTEROL (test code = 54 MG/DL 2220) CALC LDL CHOL (test code = 2237) (NOTE) MG/DL RISK RATIO LDL/HDL (test code = (NOTE) RATIO 2238) LIPID [id number] 00:00:00 Test Item Value Reference Range Interpretation Comments CHOLESTEROL (test code = 2210) 316 MG/DL TRIGLYCERIDES (test code = 2232) 547 MG/DL HDL CHOLESTEROL (test code = 54 MG/DL 2220) CALC LDL CHOL (test code = 2237) (NOTE) MG/DL RISK RATIO LDL/HDL (test code = (NOTE) RATIO 2238) [id number] 00:00:00 Test Item Value Reference Range Interpretation Comments TSH, THIRD GENERATION (test >100.000 UIU/ML code = 2821) [id number] 00:00:00 Test Item Value Reference Range Interpretation Comments TSH, THIRD GENERATION (test >100.000 UIU/ML code = 2821) [id number] 00:00:00 Test Item Value Reference Range Interpretation Comments TSH, THIRD GENERATION (test >100.000 UIU/ML code = 2821) (MANUAL DIFFERENTIAL)2019-12-16 12:27:00 Test Item Value Reference [...] code = Normal 762) HEPATITIS B SURFACE [id number] 09:48:00 Test Item Value Reference Range Interpretation [...] (BEAKER) (test code = 1+ few 966) [id number] 05:55:00 Test Item Value Reference Range Interpretation Comments PHOSPHORUS (BEAKER) (test code = 9.2 mg/dL 2.3-4.7 HH 604) Infant Nanny ID - RA MBASIC METABOLIC [id number] 05:04:00 Test Item Value Reference Range Interpretation [...] S NOT APPLICABLE FOR DIALYSIS PATIEN TS. Infant Nanny ID - RA MCBC WITH PLATELET COUNT + MANUAL [id number] 04:42:00 Test Item Value Reference Range Interpretation [...] (BEAKER) (test code = 413) BASIC METABOLIC [id number] 03:00:00 Test Item Value Reference Range Interpretation [...] S NOT APPLICABLE FOR DIALYSIS PATIEN TS. Infant Nanny ID - RA [id number] 02:58:00 Test Item Value Reference Range Interpretation Comments PHOSPHORUS (BEAKER) (test code = 7.4 mg/dL 2.3-4.7 H 604) Infant Nanny ID - RA MCBC W/PLT COUNT & AUTO [id number] 02:38:00 Test Item Value Reference Range Interpretation [...] PERCENT (BEAKER) (test code = 2801) SARS-COV2/RT-PCR ([facility])2019-12-14 11:10:00 Test Item Value Reference Range Interpretation Comments SARS-COV2/RT-PCR (test code Negative Not Detected, Negative, = 0823567) See external report for linked test SARS-COV-[address] [facility] (test code = 4673076) Negative results do not preclude SARS-CoV-2 infection [...] of the Act.Fact Sheet for Healthcare Pro viders:https://www.[employer]/Documents/Xpert%20Xpress%20SARS%20CoV-2/Fact%20Sh eets/3023802%20ZNSG-KGW-2%20HEALTHCARE%20PROVIDERS%20FACT%20SHEET.pdfFact Sheet for Healthcare Patients:[email or web address]://www.[employer]/Documents/Xpert%20Xpress%20SARS%20CoV-2/Fact%20Sheets/3023801%20SARS-COV -2%20PATIENT%20FACT%20SHEET.pdfPerforming Laboratory:[facility], [place] [address]LWVKC METABOLIC [id number] 09:53:00 Test Item Value Reference Range Interpretation [...] S NOT APPLICABLE FOR DIALYSIS PATIEN TS. Infant Nanny ID - ROSIANGPROTHROMBIN TIME/[id number] 09:39:00 Test Item Value Reference Range Interpretation [...] 0-0 (BEAKER) (test code = 413) URINE [id number] 11:01:00 Test Item Value Reference Range Interpretation Comments CULTURE (BEAKER) ENTEROCOCCUS A 40-49,000 c ol/mL (test code = 1095) FAECALIS Enterococ cus faecalis Ampicillin (test S code = 26) Linezolid (test code S = 40) Nitrofurantoin (test S code = 23) Tetracycline (test R code = 2) Vancomycin (test S code = 13) <10,000 col/mL skin floraLIPID [id number] 00:00:00 Test Item Value Reference Range Interpretation Comments CHOLESTEROL (test code = 2210) 309 MG/DL TRIGLYCERIDES (test code = 2232) 587 MG/DL HDL CHOLESTEROL (test code = 48 MG/DL 2220) CALC LDL CHOL (test code = 2237) (NOTE) MG/DL RISK RATIO LDL/HDL (test code = (NOTE) RATIO 2238) LIPID [id number] 00:00:00 Test Item Value Reference Range Interpretation [...] THYROX. BIND. CAPAC. (test 1.5 code = 45776) T4 (THYROXINE) (test code = <1.2 UG/DL 2819) CORRECTED T4 (FTI) (test code (NOTE) UG/DL = 2820) TSH, THIRD GENERATION (test >100.000 UIU/ML code = 2821) THYROID II PROFILE (TU,T4,FTI,TSH) [ADDED]2019-10-26 00:00:00 Test Item Value Reference Range Interpretation Comments T-UPTAKE (test code = 2817) 18.4 % THYROX. BIND. CAPAC. (test 1.5 code = 26075) T4 (THYROXINE) (test code = <1.2 UG/DL 2819) CORRECTED T4 (FTI) (test code (NOTE) UG/DL = 2820) TSH, THIRD GENERATION (test >100.000 UIU/ML code = 2821) HEMOGLOBIN [id number] 00:00:00 Test Item Value Reference Range Interpretation Comments HEMOGLOBIN A1c (test code = 58982) 6.9 % HEMOGLOBIN [id number] 00:00:00 Test Item Value Reference Range Interpretation Comments HEMOGLOBIN A1c (test code = 69507) 6.9 % HEMOGLOBIN [id number] 00:00:00 Test Item Value Reference Range Interpretation Comments HEMOGLOBIN A1c (test code = 21863) 6.9 % HEMOGLOBIN [id number] 00:00:00 Test Item Value Reference Range Interpretation Comments HEMOGLOBIN A1c (test code = 12336) 6.9 % HEMOGLOBIN [id number] 00:00:00 Test Item Value Reference Range Interpretation Comments HEMOGLOBIN A1c (test code = 52577) 6.9 % LIPID [id number] 00:00:00 Test Item Value Reference Range Interpretation Comments CHOLESTEROL (test code = 2210) 309 MG/DL TRIGLYCERIDES (test code = 2232) 587 MG/DL HDL CHOLESTEROL (test code = 48 MG/DL 2220) CALC LDL CHOL (test code = 2237) (NOTE) MG/DL RISK RATIO LDL/HDL (test code = (NOTE) RATIO 2238) LIPID [id number] 00:00:00 Test Item Value Reference Range Interpretation [...] THYROX. BIND. CAPAC. (test 1.5 code = 19484) T4 (THYROXINE) (test code = <1.2 UG/DL 2819) CORRECTED T4 (FTI) (test code (NOTE) UG/DL = 2820) TSH, THIRD GENERATION (test >100.000 UIU/ML code = 2821) THYROID II PROFILE (TU,T4,FTI,TSH) [ADDED]2019-10-26 00:00:00 Test Item Value Reference Range Interpretation Comments T-UPTAKE (test code = 2817) 18.4 % THYROX. BIND. CAPAC. (test 1.5 code = 57874) T4 (THYROXINE) (test code = <1.2 UG/DL 2819) CORRECTED T4 (FTI) (test code (NOTE) UG/DL = 2820) TSH, THIRD GENERATION (test >100.000 UIU/ML code = 2821) LIPID [id number] 00:00:00 Test Item Value Reference Range Interpretation [...] THYROX. BIND. CAPAC. (test 1.5 code = 49602) T4 (THYROXINE) (test code = <1.2 UG/DL 2819) CORRECTED T4 (FTI) (test code (NOTE) UG/DL = 2820) TSH, THIRD GENERATION (test >100.000 UIU/ML code = 2821) HEMOGLOBIN [id number] 00:00:00 Test Item Value Reference Range Interpretation Comments HEMOGLOBIN A1c (test code = 23182) 6.9 % HEMOGLOBIN [id number] 00:00:00 Test Item Value Reference Range Interpretation Comments HEMOGLOBIN A1c (test code = 46727) 6.9 % HEMOGLOBIN [id number] 00:00:00 Test Item Value Reference Range Interpretation Comments HEMOGLOBIN A1c (test code = 74721) 6.9 % LIPID [id number] 00:00:00 Test Item Value Reference Range Interpretation Comments CHOLESTEROL (test code = 2210) 309 MG/DL TRIGLYCERIDES (test code = 2232) 587 MG/DL HDL CHOLESTEROL (test code = 48 MG/DL 2220) CALC LDL CHOL (test code = 2237) (NOTE) MG/DL RISK RATIO LDL/HDL (test code = (NOTE) RATIO 2238) LIPID [id number] 00:00:00 Test Item Value Reference Range Interpretation [...] THYROX. BIND. CAPAC. (test 1.5 code = 68718) T4 (THYROXINE) (test code = <1.2 UG/DL 2819) CORRECTED T4 (FTI) (test code (NOTE) UG/DL = 2820) TSH, THIRD GENERATION (test >100.000 UIU/ML code = 2821) THYROID II PROFILE (TU,T4,FTI,TSH) [ADDED][id number] 00:00:00 Test Item Value Reference Range Interpretation Comments T-UPTAKE (test code = 2817) 18.4 % THYROX. BIND. CAPAC. (test 1.5 code = 98012) T4 (THYROXINE) (test code = <1.2 UG/DL 2819) CORRECTED T4 (FTI) (test code (NOTE) UG/DL = 2820) TSH, THIRD GENERATION (test >100.000 UIU/ML code = 2821) HEMOGLOBIN [id number] 00:00:00 Test Item Value Reference Range Interpretation Comments HEMOGLOBIN A1c (test code = 42701) 6.9 % HEMOGLOBIN [id number] 00:00:00 Test Item Value Reference Range Interpretation Comments HEMOGLOBIN A1c (test code = 64806) 6.9 % HEMOGLOBIN [id number] 00:00:00 Test Item Value Reference Range Interpretation Comments HEMOGLOBIN A1c (test code = 62521) 6.9 % LIPID [id number] 00:00:00 Test Item Value Reference Range Interpretation Comments CHOLESTEROL (test code = 2210) 309 MG/DL TRIGLYCERIDES (test code = 2232) 587 MG/DL HDL CHOLESTEROL (test code = 48 MG/DL 2220) CALC LDL CHOL (test code = 2237) (NOTE) MG/DL RISK RATIO LDL/HDL (test code = (NOTE) RATIO 2238) LIPID [id number] 00:00:00 Test Item Value Reference Range Interpretation [...] THYROX. BIND. CAPAC. (test 1.5 code = 78069) T4 (THYROXINE) (test code = <1.2 UG/DL 2819) CORRECTED T4 (FTI) (test code (NOTE) UG/DL = 2820) TSH, THIRD GENERATION (test >100.000 UIU/ML code = 2821) THYROID II PROFILE (TU,T4,FTI,TSH) [ADDED]2019-10-26 00:00:00 Test Item Value Reference Range Interpretation Comments T-UPTAKE (test code = 2817) 18.4 % THYROX. BIND. CAPAC. (test 1.5 code = 68550) T4 (THYROXINE) (test code = <1.2 UG/DL 2819) CORRECTED T4 (FTI) (test code (NOTE) UG/DL = 2820) TSH, THIRD GENERATION (test >100.000 UIU/ML code = 2821) HEMOGLOBIN [id number] 00:00:00 Test Item Value Reference Range Interpretation Comments HEMOGLOBIN A1c (test code = 63199) 6.9 % HEMOGLOBIN [id number] 00:00:00 Test Item Value Reference Range Interpretation Comments HEMOGLOBIN A1c (test code = 34097) 6.9 % HEMOGLOBIN [id number] 00:00:00 Test Item Value Reference Range Interpretation Comments HEMOGLOBIN A1c (test code = 40812) 6.9 % LIPID [id number] 00:00:00 Test Item Value Reference Range Interpretation Comments CHOLESTEROL (test code = 2210) 309 MG/DL TRIGLYCERIDES (test code = 2232) 587 MG/DL HDL CHOLESTEROL (test code = 48 MG/DL 2220) CALC LDL CHOL (test code = 2237) (NOTE) MG/DL RISK RATIO LDL/HDL (test code = (NOTE) RATIO 2238) LIPID [id number] 00:00:00 Test Item Value Reference Range Interpretation [...] THYROX. BIND. CAPAC. (test 1.5 code = 83680) T4 (THYROXINE) (test code = <1.2 UG/DL 2819) CORRECTED T4 (FTI) (test code (NOTE) UG/DL = 2820) TSH, THIRD GENERATION (test >100.000 UIU/ML code = 2821) THYROID II PROFILE (TU,T4,FTI,TSH) [ADDED]2019-10-26 00:00:00 Test Item Value Reference Range Interpretation Comments T-UPTAKE (test code = 2817) 18.4 % THYROX. BIND. CAPAC. (test 1.5 code = 16452) T4 (THYROXINE) (test code = <1.2 UG/DL 2819) CORRECTED T4 (FTI) (test code (NOTE) UG/DL = 2820) TSH, THIRD GENERATION (test >100.000 UIU/ML code = 2821) HEMOGLOBIN [id number] 00:00:00 Test Item Value Reference Range Interpretation Comments HEMOGLOBIN A1c (test code = 88623) 6.9 % HEMOGLOBIN [id number] 00:00:00 Test Item Value Reference Range Interpretation Comments HEMOGLOBIN A1c (test code = 59663) 6.9 % HEMOGLOBIN [id number] 00:00:00 Test Item Value Reference Range Interpretation Comments HEMOGLOBIN A1c (test code = 50049) 6.9 % LIPID [id number] 00:00:00 Test Item Value Reference Range Interpretation Comments CHOLESTEROL (test code = 2210) 309 MG/DL TRIGLYCERIDES (test code = 2232) 587 MG/DL HDL CHOLESTEROL (test code = 48 MG/DL 2220) CALC LDL CHOL (test code = 2237) (NOTE) MG/DL RISK RATIO LDL/HDL (test code = (NOTE) RATIO 2238) LIPID [id number] 00:00:00 Test Item Value Reference Range Interpretation [...] THYROX. BIND. CAPAC. (test 1.5 code = 32137) T4 (THYROXINE) (test code = <1.2 UG/DL 2819) CORRECTED T4 (FTI) (test code (NOTE) UG/DL = 2820) TSH, THIRD GENERATION (test >100.000 UIU/ML code = 2821) THYROID II PROFILE (TU,T4,FTI,TSH) [ADDED]2019-10-26 00:00:00 Test Item Value Reference Range Interpretation Comments T-UPTAKE (test code = 2817) 18.4 % THYROX. BIND. CAPAC. (test 1.5 code = 09841) T4 (THYROXINE) (test code = <1.2 UG/DL 2819) CORRECTED T4 (FTI) (test code (NOTE) UG/DL = 2820) TSH, THIRD GENERATION (test >100.000 UIU/ML code = 2821) HEMOGLOBIN [id number] 00:00:00 Test Item Value Reference Range Interpretation Comments HEMOGLOBIN A1c (test code = 34895) 6.9 % HEMOGLOBIN [id number] 00:00:00 Test Item Value Reference Range Interpretation Comments HEMOGLOBIN A1c (test code = 51577) 6.9 % HEMOGLOBIN [id number] 00:00:00 Test Item Value Reference Range Interpretation Comments HEMOGLOBIN A1c (test code = 52828) 6.9 % LIPID [id number] 00:00:00 Test Item Value Reference Range Interpretation Comments CHOLESTEROL (test code = 2210) 309 MG/DL TRIGLYCERIDES (test code = 2232) 587 MG/DL HDL CHOLESTEROL (test code = 48 MG/DL 2220) CALC LDL CHOL (test code = 2237) (NOTE) MG/DL RISK RATIO LDL/HDL (test code = (NOTE) RATIO 2238) LIPID [id number] 00:00:00 Test Item Value Reference Range Interpretation [...] THYROX. BIND. CAPAC. (test 1.5 code = 52717) T4 (THYROXINE) (test code = <1.2 UG/DL 2819) CORRECTED T4 (FTI) (test code (NOTE) UG/DL = 2820) TSH, THIRD GENERATION (test >100.000 UIU/ML code = 2821) THYROID II PROFILE (TU,T4,FTI,TSH) [ADDED]2019-10-26 00:00:00 Test Item Value Reference Range Interpretation Comments T-UPTAKE (test code = 2817) 18.4 % THYROX. BIND. CAPAC. (test 1.5 code = 95431) T4 (THYROXINE) (test code = <1.2 UG/DL 2819) CORRECTED T4 (FTI) (test code (NOTE) UG/DL = 2820) TSH, THIRD GENERATION (test >100.000 UIU/ML code = 2821) HEMOGLOBIN [id number] 00:00:00 Test Item Value Reference Range Interpretation Comments HEMOGLOBIN A1c (test code = 45855) 6.9 % HEMOGLOBIN [id number] 00:00:00 Test Item Value Reference Range Interpretation Comments HEMOGLOBIN A1c (test code = 13950) 6.9 % HEMOGLOBIN [id number] 00:00:00 Test Item Value Reference Range Interpretation Comments HEMOGLOBIN A1c (test code = 56667) 6.9 % HEMOGLOBIN [id number] 09:52:00 Test Item Value Reference Range Interpretation Comments HEMOGLOBIN A1C (BEAKER) (test code = 6.6 % 4.3-6.1 H 368) Infant Nanny ID - [id number] 09:08:00 Test Item Value Reference Range Interpretation Comments PROSTATE SPECIFIC ANTIGEN (BEAKER) 0.5 ng/mL 0.0-4.0 (test code = 844) Infant Nanny ID - [place] FLIPID [id number] 08:00:00 Test Item Value Reference Range Interpretation [...] Borderline 130-159 High 160-189 Very High >=190 Infant Nanny ID - [place] CTHYROID II PROFILE (T3U, T4, T7, TSH)2019-07-05 00:00:00 Test Item Value Reference Range Interpretation Comments T-UPTAKE (test code = 2817) 24.3 % THYROX. BIND. CAPAC. (test 1.3 code = 99708) T4 (THYROXINE) (test code = 3.6 UG/DL 2819) CORRECTED T4 (FTI) (test code 2.8 UG/DL = 2820) TSH, THIRD GENERATION (test >100.000 UIU/ML code = 2821) THYROID II PROFILE (T3U, T4, T7, TSH)2019-07-05 00:00:00 Test Item Value Reference Range Interpretation Comments T-UPTAKE (test code = 2817) 24.3 % THYROX. BIND. CAPAC. (test 1.3 code = 36479) T4 (THYROXINE) (test code = 3.6 UG/DL 2819) CORRECTED T4 (FTI) (test code 2.8 UG/DL = 2820) TSH, THIRD GENERATION (test >100.000 UIU/ML code = 2821) THYROID II PROFILE (T3U, T4, T7, TSH)2019-07-05 00:00:00 Test Item Value Reference Range Interpretation Comments T-UPTAKE (test code = 2817) 24.3 % THYROX. BIND. CAPAC. (test 1.3 code = 95023) T4 (THYROXINE) (test code = 3.6 UG/DL 2819) CORRECTED T4 (FTI) (test code 2.8 UG/DL = 2820) TSH, THIRD GENERATION (test >100.000 UIU/ML code = 2821) THYROID II PROFILE (T3U, T4, T7, TSH)2019-07-05 00:00:00 Test Item Value Reference Range Interpretation Comments T-UPTAKE (test code = 2817) 24.3 % THYROX. BIND. CAPAC. (test 1.3 code = 79140) T4 (THYROXINE) (test code = 3.6 UG/DL 2819) CORRECTED T4 (FTI) (test code 2.8 UG/DL = 2820) TSH, THIRD GENERATION (test >100.000 UIU/ML code = 2821) THYROID II PROFILE (T3U, T4, T7, TSH)2019-07-05 00:00:00 Test Item Value Reference Range Interpretation Comments T-UPTAKE (test code = 2817) 24.3 % THYROX. BIND. CAPAC. (test 1.3 code = 61259) T4 (THYROXINE) (test code = 3.6 UG/DL 2819) CORRECTED T4 (FTI) (test code 2.8 UG/DL = 2820) TSH, THIRD GENERATION (test >100.000 UIU/ML code = 2821) THYROID II PROFILE (T3U, T4, T7, TSH)2019-07-05 00:00:00 Test Item Value Reference Range Interpretation Comments T-UPTAKE (test code = 2817) 24.3 % THYROX. BIND. CAPAC. (test 1.3 code = 34089) T4 (THYROXINE) (test code = 3.6 UG/DL 2819) CORRECTED T4 (FTI) (test code 2.8 UG/DL = 2820) TSH, THIRD GENERATION (test >100.000 UIU/ML code = 2821) THYROID II PROFILE (T3U, T4, T7, TSH)2019-07-05 00:00:00 Test Item Value Reference Range Interpretation Comments T-UPTAKE (test code = 2817) 24.3 % THYROX. BIND. CAPAC. (test 1.3 code = 84716) T4 (THYROXINE) (test code = 3.6 UG/DL 2819) CORRECTED T4 (FTI) (test code 2.8 UG/DL = 2820) TSH, THIRD GENERATION (test >100.000 UIU/ML code = 2821) THYROID II PROFILE (T3U, T4, T7, TSH)2019-07-05 00:00:00 Test Item Value Reference Range Interpretation Comments T-UPTAKE (test code = 2817) 24.3 % THYROX. BIND. CAPAC. (test 1.3 code = 30552) T4 (THYROXINE) (test code = 3.6 UG/DL 2819) CORRECTED T4 (FTI) (test code 2.8 UG/DL = 2820) TSH, THIRD GENERATION (test >100.000 UIU/ML code = 2821) THYROID II PROFILE (T3U, T4, T7, TSH)2019-07-05 00:00:00 Test Item Value Reference Range Interpretation Comments T-UPTAKE (test code = 2817) 24.3 % THYROX. BIND. CAPAC. (test 1.3 code = 24802) T4 (THYROXINE) (test code = 3.6 UG/DL 2819) CORRECTED T4 (FTI) (test code 2.8 UG/DL = 2820) TSH, THIRD GENERATION (test >100.000 UIU/ML code = 2821) THYROID II PROFILE (T3U, T4, T7, TSH)2019-07-05 00:00:00 Test Item Value Reference Range Interpretation Comments T-UPTAKE (test code = 2817) 24.3 % THYROX. BIND. CAPAC. (test 1.3 code = 76414) T4 (THYROXINE) (test code = 3.6 UG/DL 2819) CORRECTED T4 (FTI) (test code 2.8 UG/DL = 2820) TSH, THIRD GENERATION (test >100.000 UIU/ML code = 2821) THYROID II PROFILE (T3U, T4, T7, TSH)2019-07-05 00:00:00 Test Item Value Reference Range Interpretation Comments T-UPTAKE (test code = 2817) 24.3 % THYROX. BIND. CAPAC. (test 1.3 code = 61416) T4 (THYROXINE) (test code = 3.6 UG/DL 2819) CORRECTED T4 (FTI) (test code 2.8 UG/DL = 2820) TSH, THIRD GENERATION (test >100.000 UIU/ML code = 2821) THYROID II PROFILE (T3U, T4, T7, TSH)2019-07-05 00:00:00 Test Item Value Reference Range Interpretation Comments T-UPTAKE (test code = 2817) 24.3 % THYROX. BIND. CAPAC. (test 1.3 code = 86161) T4 (THYROXINE) (test code = 3.6 UG/DL 2819) CORRECTED T4 (FTI) (test code 2.8 UG/DL = 2820) TSH, THIRD GENERATION (test >100.000 UIU/ML code = 2821) THYROID II PROFILE (T3U, T4, T7, TSH)2019-07-05 00:00:00 Test Item Value Reference Range Interpretation Comments T-UPTAKE (test code = 2817) 24.3 % THYROX. BIND. CAPAC. (test 1.3 code = 62542) T4 (THYROXINE) (test code = 3.6 UG/DL 2819) CORRECTED T4 (FTI) (test code 2.8 UG/DL = 2820) TSH, THIRD GENERATION (test >100.000 UIU/ML code = 2821) THYROID II PROFILE (T3U, T4, T7, TSH)2019-07-05 00:00:00 Test Item Value Reference Range Interpretation Comments T-UPTAKE (test code = 2817) 24.3 % THYROX. BIND. CAPAC. (test 1.3 code = 55998) T4 (THYROXINE) (test code = 3.6 UG/DL 2819) CORRECTED T4 (FTI) (test code 2.8 UG/DL = 2820) TSH, THIRD GENERATION (test >100.000 UIU/ML code = 2821) THYROID II PROFILE (T3U, T4, T7, TSH)2019-07-05 00:00:00 Test Item Value Reference Range Interpretation Comments T-UPTAKE (test code = 2817) 24.3 % THYROX. BIND. CAPAC. (test 1.3 code = 02433) T4 (THYROXINE) (test code = 3.6 UG/DL 2819) CORRECTED T4 (FTI) (test code 2.8 UG/DL = 2820) TSH, THIRD GENERATION (test >100.000 UIU/ML code = 2821) URINE [id number] 14:35:00 Test Item Value Reference Range Interpretation Comments CULTURE (BEAKER) ENTEROCOCCUS A 10-19,000 c ol/mL (test code = 1095) FAECALIS Enterococ cus faecalis Ampicillin (test S code = 26) Levofloxacin (test S code = 22) Linezolid (test code S = 40) Nitrofurantoin (test S code = 23) Tetracycline (test R code = 2) Vancomycin (test S code = 13) 10-19,000 col/mL skin [id number] 10:31:00 Test Item Value Reference Range Interpretation Comments RPR SCREEN (BEAKER) (test code = Nonreactive Nonreactive 420) U/S, ABDOMINAL, [id number] 16:14:00Reason for Exam:->Kidney transplant evaluation; comment on [...] [place] Verified Date/Time: 05/23/2019 16:14:42 Reading Location: [address] Radiology Reading Room RAD, CHEST, 2 [id number] 16:02:00 Reason for Exam:->Pre kidney transplant evaluation.FINAL [...] MDReport Verified Date/Time: 05/23/2019 16:02:27 Reading Location: [address] Radiology Reading Room CYTOMEGALOVIRUS ANTIBODY, [id number] 15:17:00 Test Item Value Reference Range Interpretation Comments CYTOMEGALOVIRUS, IGG (BEAKER) Positive Negative, Equivocal A (test code = 3429) CMV IgG Result Interpretation: </= 0.8 Al Negative 0.9-1.0 Al Equivocal >/=1.1 Al PositiveCYTOMEGALOVIRUS ANTIBODY, [id number] 15:17:00 Test Item Value Reference Range Interpretation Comments CYTOMEGALOVIRUS IGM ANTIBODY Negative Negative, Equivocal (BEAKER) (test code = 3437) CMV IgM Result Interpretation: </= 0.8 Al Negative 0.9-1.0 Al Equivocal >/= 1.1 Al PositiveEBV ANTIBODY, [id number] 15:17:00 Test Item Value Reference Range Interpretation Comments NIHARIKA HOOPER VIRAL CAPSID Positive Negative, Equivocal A ANTIGEN IGG (Knack.itAKER) (test code = 3415) Niharika Hooper Viral Capsid Antigen IgG Result Interpretation: </= 0.8 Al Negative 0.9-1.0 Al Equivocal >/= 1.1 Al PositiveEBV ANTIBODY, [id number] 15:17:00 Test Item Value Reference Range Interpretation Comments NIHARIKA HOOPER VIRAL CAPSID Negative Negative, Equivocal ANTIGEN IGM (Knack.itAKER) (test code = 3418) Niharika Hooper Viral Capsid Antigen IgM Result Interpretation: </= 0.8 Al Negative 0.9-1.0 Al Equivocal >/= 1.1 Al PositiveVARICELLA ZOSTER ANTIBODY, [id number] 15:17:00 Test Item Value Reference Range Interpretation Comments VARICELLA ZOSTER IGG (AL) (BEAKER) 3.4 (test code = 3197) VARICELLA ZOSTER RESULT INTERPRETATIONS: <=0.8 Al Nonreactive: Presumed non- immune to VZV 0.9-1.0Al Equivocal >=1.1 Al Reactive: Presumed immune to VZV HEPATITIS B SURFACE [id number] 12:59:00 Test Item Value Reference Range Interpretation Comments HEPATITIS B SURFACE ANTIBODY 03649.3 mIU/mL <8.0 H (Knack.itAKER) (test code = 647) Infant Nanny ID - ROSIANGHEPATITIS B SURFACE [id number] 12:47:00 Test Item Value Reference Range Interpretation Comments HEPATITIS B SURFACE ANTIGEN (2) Nonreactive Nonreactive (BEAKER) (test code = 2585) Infant Nanny ID - TIKAEPATITIS B CORE ANTIBODY, [id number] 12:47:00 Test Item Value Reference Range Interpretation Comments HEPATITIS B CORE IGM ANTIBODY Nonreactive Nonreactive (BEAKER) (test code = 645) Infant Nanny ID - TIKAEPATITIS C [id number] 12:47:00 Test Item Value Reference Range Interpretation Comments HEPATITIS C ANTIBODY (BEAKER) Nonreactive Nonreactive (test code = 367) Infant Nanny ID - TIKAIV-1 ANTIGEN WITH HIV-1/2 [id number] 12:47:00 Test Item Value Reference Range Interpretation Comments HIV-1 ANTIGEN WITH HIV 1\T\2 Nonreactive Nonreactive ANTIBODY (2) (BEAKER) (test code = 2586) Infant Nanny ID - NANCYGPTH, [id number] 12:03:00 Test Item Value Reference Range Interpretation Comments PARATHYROID HORMONE INTACT 430.9 pg/mL 8.5-72.5 H (BEAKER) (test code = 577) Infant Nanny ID - LACOMPREHENSIVE METABOLIC [id number] 11:56:00 Test Item Value Reference Range Interpretation [...] S NOT APPLICABLE FOR DIALYSIS PATIEN TS. Infant Nanny ID - LAURIC [id number] 11:55:00 Test Item Value Reference Range Interpretation Comments URIC ACID (BEAKER) (test code = 5.5 mg/dL 2.6-7.2 773) Infant Nanny ID - [id number] 11:55:00 Test Item Value Reference Range Interpretation Comments PHOSPHORUS (BEAKER) (test code = 5.5 mg/dL 2.3-4.7 H 604) Infant Nanny ID - LAGAMMA GLUTAMYL TRANSFERASE (GGT)2019-05-23 11:55:00 Test Item Value Reference Range Interpretation Comments GAMMA GLUTAMYL TRANSFERASE (BEAKER) 20 U/L 9-64 (test code = 364) Infant Nanny ID - LALACTATE DEHYDROGENASE (LDH)2019-05-23 11:55:00 Test Item Value Reference Range Interpretation Comments LACTATE DEHYDROGENASE (BEAKER) (test 249 U/L 125-220 H code = 635) Infant Nanny ID - LAURINALYSIS W/ [id number] 11:43:00 Test Item Value Reference Range Interpretation [...] < /HPF SOURCE(BEAKER) (test code = 2795) Infant Nanny ID - [auto]Infant Nanny ID - techPT/[id number] 11:32:00 Test Item Value Reference Range Interpretation [...] 2.5-3.5 for patients wiht mechanical heart valves.PROTHROMBIN TIME/[id number] 11:31:00 Test Item Value Reference Range Interpretation [...] mechanical heart valves.CBC W/PLT COUNT & AUTO [id number] 11:27:00 Test Item Value Reference Range Interpretation [...] 0-1 PERCENT (BEAKER) (test code = 2801) [id number] 00:00:00 Test Item Value Reference Range Interpretation Comments TSH, THIRD GENERATION (test >100.000 UIU/ML code = 2821) [id number] 00:00:00 Test Item Value Reference Range Interpretation Comments TSH, THIRD GENERATION (test >100.000 UIU/ML code = 2821) [id number] 00:00:00 Test Item Value Reference Range Interpretation Comments TSH, THIRD GENERATION (test >100.000 UIU/ML code = 2821) [id number] 00:00:00 Test Item Value Reference Range Interpretation Comments TSH, THIRD GENERATION (test >100.000 UIU/ML code = 2821) [id number] 00:00:00 Test Item Value Reference Range Interpretation Comments TSH, THIRD GENERATION (test >100.000 UIU/ML code = 2821) [id number] 00:00:00 Test Item Value Reference Range Interpretation Comments TSH, THIRD GENERATION (test >100.000 UIU/ML code = 2821) [id number] 00:00:00 Test Item Value Reference Range Interpretation Comments TSH, THIRD GENERATION (test >100.000 UIU/ML code = 2821) [id number] 00:00:00 Test Item Value Reference Range Interpretation Comments TSH, THIRD GENERATION (test >100.000 UIU/ML code = 2821) [id number] 00:00:00 Test Item Value Reference Range Interpretation Comments TSH, THIRD GENERATION (test >100.000 UIU/ML code = 2821) [id number] 00:00:00 Test Item Value Reference Range Interpretation Comments TSH, THIRD GENERATION (test >100.000 UIU/ML code = 2821) [id number] 00:00:00 Test Item Value Reference Range Interpretation Comments TSH, THIRD GENERATION (test >100.000 UIU/ML code = 2821) [id number] 00:00:00 Test Item Value Reference Range Interpretation Comments TSH, THIRD GENERATION (test >100.000 UIU/ML code = 2821) [id number] 00:00:00 Test Item Value Reference Range Interpretation Comments TSH, THIRD GENERATION (test >100.000 UIU/ML code = 2821) [id number] 00:00:00 Test Item Value Reference Range Interpretation Comments TSH, THIRD GENERATION (test >100.000 UIU/ML code = 2821) [id number] 00:00:00 Test Item Value Reference Range Interpretation Comments TSH, THIRD GENERATION (test >100.000 UIU/ML code = 2821) [id number] 00:00:00 Test Item Value Reference Range Interpretation Comments TSH, THIRD GENERATION (test >100.000 UIU/ML code = 2821) [id number] 00:00:00 Test Item Value Reference Range Interpretation Comments TSH, THIRD GENERATION (test >100.000 UIU/ML code = 2821) [id number] 00:00:00 Test Item Value Reference Range Interpretation Comments TSH, THIRD GENERATION (test >100.000 UIU/ML code = 2821) [id number] 00:00:00 Test Item Value Reference Range Interpretation Comments TSH, THIRD GENERATION (test >100.000 UIU/ML code = 2821) [id number] 00:00:00 Test Item Value Reference Range Interpretation Comments TSH, THIRD GENERATION (test >100.000 UIU/ML code = 2821) [id number] 00:00:00 Test Item Value Reference Range Interpretation Comments TSH, THIRD GENERATION (test >100.000 UIU/ML code = 2821) [id number] 00:00:00 Test Item Value Reference Range Interpretation Comments TSH, THIRD GENERATION (test >100.000 UIU/ML code = 2821) [id number] 00:00:00 Test Item Value Reference Range Interpretation Comments TSH, THIRD GENERATION (test >100.000 UIU/ML code = 2821) [id number] 00:00:00 Test Item Value Reference Range Interpretation Comments TSH, THIRD GENERATION (test >100.000 UIU/ML code = 2821) [id number] 00:00:00 Test Item Value Reference Range Interpretation Comments TSH, THIRD GENERATION (test >100.000 UIU/ML code = 2821) [id number] 00:00:00 Test Item Value Reference Range Interpretation Comments TSH, THIRD GENERATION (test >100.000 UIU/ML code = 2821) LIPID [id number] 00:00:00 Test Item Value Reference Range Interpretation Comments CHOLESTEROL (test code = 2210) 201 MG/DL TRIGLYCERIDES (test code = 2232) 227 MG/DL HDL CHOLESTEROL (test code = 2220) 52 MG/DL CALC LDL CHOL (test code = 2237) 104 MG/DL RISK RATIO LDL/HDL (test code = 1.99 RATIO 2238) LIPID [id number] 00:00:00 Test Item Value Reference Range Interpretation Comments CHOLESTEROL (test code = 2210) 201 MG/DL TRIGLYCERIDES (test code = 2232) 227 MG/DL HDL CHOLESTEROL (test code = 2220) 52 MG/DL CALC LDL CHOL (test code = 2237) 104 MG/DL RISK RATIO LDL/HDL (test code = 1.99 RATIO 2238) LIPID [id number] 00:00:00 Test Item Value Reference Range Interpretation Comments CHOLESTEROL (test code = 2210) 201 MG/DL TRIGLYCERIDES (test code = 2232) 227 MG/DL HDL CHOLESTEROL (test code = 2220) 52 MG/DL CALC LDL CHOL (test code = 2237) 104 MG/DL RISK RATIO LDL/HDL (test code = 1.99 RATIO 2238) [id number] 00:00:00 Test Item Value Reference Range Interpretation Comments TSH, THIRD GENERATION (test >100.000 UIU/ML code = 2821) [id number] 00:00:00 Test Item Value Reference Range Interpretation Comments TSH, THIRD GENERATION (test >100.000 UIU/ML code = 2821) [id number] 00:00:00 Test Item Value Reference Range Interpretation Comments TSH, THIRD GENERATION (test >100.000 UIU/ML code = 2821) [id number] 00:00:00 Test Item Value Reference Range Interpretation Comments TSH, THIRD GENERATION (test >100.000 UIU/ML code = 2821) [id number] 00:00:00 Test Item Value Reference Range Interpretation Comments TSH, THIRD GENERATION (test >100.000 UIU/ML code = 2821) LIPID [id number] 00:00:00 Test Item Value Reference Range Interpretation Comments CHOLESTEROL (test code = 2210) 201 MG/DL TRIGLYCERIDES (test code = 2232) 227 MG/DL HDL CHOLESTEROL (test code = 2220) 52 MG/DL CALC LDL CHOL (test code = 2237) 104 MG/DL RISK RATIO LDL/HDL (test code = 1.99 RATIO 2238) LIPID [id number] 00:00:00 Test Item Value Reference Range Interpretation Comments CHOLESTEROL (test code = 2210) 201 MG/DL TRIGLYCERIDES (test code = 2232) 227 MG/DL HDL CHOLESTEROL (test code = 2220) 52 MG/DL CALC LDL CHOL (test code = 2237) 104 MG/DL RISK RATIO LDL/HDL (test code = 1.99 RATIO 2238) [id number] 00:00:00 Test Item Value Reference Range Interpretation Comments TSH, THIRD GENERATION (test >100.000 UIU/ML code = 2821) [id number] 00:00:00 Test Item Value Reference Range Interpretation Comments TSH, THIRD GENERATION (test >100.000 UIU/ML code = 2821) [id number] 00:00:00 Test Item Value Reference Range Interpretation Comments TSH, THIRD GENERATION (test >100.000 UIU/ML code = 2821) LIPID [id number] 00:00:00 Test Item Value Reference Range Interpretation Comments CHOLESTEROL (test code = 2210) 201 MG/DL TRIGLYCERIDES (test code = 2232) 227 MG/DL HDL CHOLESTEROL (test code = 2220) 52 MG/DL CALC LDL CHOL (test code = 2237) 104 MG/DL RISK RATIO LDL/HDL (test code = 1.99 RATIO 2238) LIPID [id number] 00:00:00 Test Item Value Reference Range Interpretation Comments CHOLESTEROL (test code = 2210) 201 MG/DL TRIGLYCERIDES (test code = 2232) 227 MG/DL HDL CHOLESTEROL (test code = 2220) 52 MG/DL CALC LDL CHOL (test code = 2237) 104 MG/DL RISK RATIO LDL/HDL (test code = 1.99 RATIO 2238) [id number] 00:00:00 Test Item Value Reference Range Interpretation Comments TSH, THIRD GENERATION (test >100.000 UIU/ML code = 2821) [id number] 00:00:00 Test Item Value Reference Range Interpretation Comments TSH, THIRD GENERATION (test >100.000 UIU/ML code = 2821) [id number] 00:00:00 Test Item Value Reference Range Interpretation Comments TSH, THIRD GENERATION (test >100.000 UIU/ML code = 2821) LIPID [id number] 00:00:00 Test Item Value Reference Range Interpretation Comments CHOLESTEROL (test code = 2210) 201 MG/DL TRIGLYCERIDES (test code = 2232) 227 MG/DL HDL CHOLESTEROL (test code = 2220) 52 MG/DL CALC LDL CHOL (test code = 2237) 104 MG/DL RISK RATIO LDL/HDL (test code = 1.99 RATIO 2238) LIPID [id number] 00:00:00 Test Item Value Reference Range Interpretation Comments CHOLESTEROL (test code = 2210) 201 MG/DL TRIGLYCERIDES (test code = 2232) 227 MG/DL HDL CHOLESTEROL (test code = 2220) 52 MG/DL CALC LDL CHOL (test code = 2237) 104 MG/DL RISK RATIO LDL/HDL (test code = 1.99 RATIO 2238) [id number] 00:00:00 Test Item Value Reference Range Interpretation Comments TSH, THIRD GENERATION (test >100.000 UIU/ML code = 2821) [id number] 00:00:00 Test Item Value Reference Range Interpretation Comments TSH, THIRD GENERATION (test >100.000 UIU/ML code = 2821) [id number] 00:00:00 Test Item Value Reference Range Interpretation Comments TSH, THIRD GENERATION (test >100.000 UIU/ML code = 2821) LIPID [id number] 00:00:00 Test Item Value Reference Range Interpretation Comments CHOLESTEROL (test code = 2210) 201 MG/DL TRIGLYCERIDES (test code = 2232) 227 MG/DL HDL CHOLESTEROL (test code = 2220) 52 MG/DL CALC LDL CHOL (test code = 2237) 104 MG/DL RISK RATIO LDL/HDL (test code = 1.99 RATIO 2238) LIPID [id number] 00:00:00 Test Item Value Reference Range Interpretation Comments CHOLESTEROL (test code = 2210) 201 MG/DL TRIGLYCERIDES (test code = 2232) 227 MG/DL HDL CHOLESTEROL (test code = 2220) 52 MG/DL CALC LDL CHOL (test code = 2237) 104 MG/DL RISK RATIO LDL/HDL (test code = 1.99 RATIO 2238) [id number] 00:00:00 Test Item Value Reference Range Interpretation Comments TSH, THIRD GENERATION (test >100.000 UIU/ML code = 2821) [id number] 00:00:00 Test Item Value Reference Range Interpretation Comments TSH, THIRD GENERATION (test >100.000 UIU/ML code = 2821) [id number] 00:00:00 Test Item Value Reference Range Interpretation Comments TSH, THIRD GENERATION (test >100.000 UIU/ML code = 2821) LIPID [id number] 00:00:00 Test Item Value Reference Range Interpretation Comments CHOLESTEROL (test code = 2210) 201 MG/DL TRIGLYCERIDES (test code = 2232) 227 MG/DL HDL CHOLESTEROL (test code = 2220) 52 MG/DL CALC LDL CHOL (test code = 2237) 104 MG/DL RISK RATIO LDL/HDL (test code = 1.99 RATIO 2238) LIPID [id number] 00:00:00 Test Item Value Reference Range Interpretation Comments CHOLESTEROL (test code = 2210) 201 MG/DL TRIGLYCERIDES (test code = 2232) 227 MG/DL HDL CHOLESTEROL (test code = 2220) 52 MG/DL CALC LDL CHOL (test code = 2237) 104 MG/DL RISK RATIO LDL/HDL (test code = 1.99 RATIO 2238) [id number] 00:00:00 Test Item Value Reference Range Interpretation Comments TSH, THIRD GENERATION (test >100.000 UIU/ML code = 2821) [id number] 00:00:00 Test Item Value Reference Range Interpretation Comments TSH, THIRD GENERATION (test >100.000 UIU/ML code = 2821) [id number] 00:00:00 Test Item Value Reference Range Interpretation Comments TSH, THIRD GENERATION (test >100.000 UIU/ML code = 2821) LIPID [id number] 00:00:00 Test Item Value Reference Range Interpretation Comments CHOLESTEROL (test code = 2210) 201 MG/DL TRIGLYCERIDES (test code = 2232) 227 MG/DL HDL CHOLESTEROL (test code = 2220) 52 MG/DL CALC LDL CHOL (test code = 2237) 104 MG/DL RISK RATIO LDL/HDL (test code = 1.99 RATIO 2238) LIPID [id number] 00:00:00 Test Item Value Reference Range Interpretation Comments CHOLESTEROL (test code = 2210) 201 MG/DL TRIGLYCERIDES (test code = 2232) 227 MG/DL HDL CHOLESTEROL (test code = 2220) 52 MG/DL CALC LDL CHOL (test code = 2237) 104 MG/DL RISK RATIO LDL/HDL (test code = 1.99 RATIO 2238) LIPID [id number] 00:00:00 Test Item Value Reference Range Interpretation Comments CHOLESTEROL (test code = 2210) 240 MG/DL TRIGLYCERIDES (test code = 2232) 395 MG/DL HDL CHOLESTEROL (test code = 2220) 55 MG/DL CALC LDL CHOL (test code = 2237) 106 MG/DL RISK RATIO LDL/HDL (test code = 1.93 RATIO 2238) CBC W/AUTO [id number] 00:00:00 Test Item Value Reference Range Interpretation [...] code = 1015) 327 K/UL CBC W/AUTO [id number] 00:00:00 Test Item Value Reference Range Interpretation [...] code = 1015) 327 K/UL CBC W/AUTO [id number] 00:00:00 Test Item Value Reference Range Interpretation [...] (test code = 1015) 327 K/UL HEMOGLOBIN [id number] 00:00:00 Test Item Value Reference Range Interpretation Comments HEMOGLOBIN A1c (test code = 25021) 6.2 % HEMOGLOBIN [id number] 00:00:00 Test Item Value Reference Range Interpretation Comments HEMOGLOBIN A1c (test code = 88770) 6.2 % HEMOGLOBIN [id number] 00:00:00 Test Item Value Reference Range Interpretation Comments HEMOGLOBIN A1c (test code = 03023) 6.2 % [id number] 00:00:00 Test Item Value Reference Range Interpretation Comments TSH, THIRD GENERATION (test >100.000 UIU/ML code = 2821) [id number] 00:00:00 Test Item Value Reference Range Interpretation Comments TSH, THIRD GENERATION (test >100.000 UIU/ML code = 2821) [id number] 00:00:00 Test Item Value Reference Range Interpretation Comments TSH, THIRD GENERATION (test >100.000 UIU/ML code = 2821) COMPREHENSIVE METABOLIC [id number] 00:00:00 Test Item Value Reference Range Interpretation Comments GLUCOSE (test code = 2217) 103 MG/DL BUN (test code = 2208) 35 MG/DL CREATININE (test code = 2214) 6.37 MG/DL eGFR AMER. (test code 11 ML/MIN/1.73 = 50730) eGFR NON- AMER. (test 9 ML/MIN/1.73 code = 56067) CALC BUN/CREAT (test code = 5 RATIO [...] code = 2219) 10 U/L COMPREHENSIVE METABOLIC [id number] 00:00:00 Test Item Value Reference Range Interpretation Comments GLUCOSE (test code = 2217) 103 MG/DL BUN (test code = 2208) 35 MG/DL CREATININE (test code = 2214) 6.37 MG/DL eGFR AMER. (test code 11 ML/MIN/1.73 = 95811) eGFR NON- AMER. (test 9 ML/MIN/1.73 code = 06927) CALC BUN/CREAT (test code = 5 RATIO [...] (test code = 2219) 10 U/L LIPID [id number] 00:00:00 Test Item Value Reference Range Interpretation Comments CHOLESTEROL (test code = 2210) 240 MG/DL TRIGLYCERIDES (test code = 2232) 395 MG/DL HDL CHOLESTEROL (test code = 2220) 55 MG/DL CALC LDL CHOL (test code = 2237) 106 MG/DL RISK RATIO LDL/HDL (test code = 1.93 RATIO 2238) LIPID [id number] 00:00:00 Test Item Value Reference Range Interpretation Comments CHOLESTEROL (test code = 2210) 240 MG/DL TRIGLYCERIDES (test code = 2232) 395 MG/DL HDL CHOLESTEROL (test code = 2220) 55 MG/DL CALC LDL CHOL (test code = 2237) 106 MG/DL RISK RATIO LDL/HDL (test code = 1.93 RATIO 2238) COMPREHENSIVE METABOLIC [id number] 00:00:00 Test Item Value Reference Range Interpretation Comments GLUCOSE (test code = 2217) 103 MG/DL BUN (test code = 2208) 35 MG/DL CREATININE (test code = 2214) 6.37 MG/DL eGFR AMER. (test code 11 ML/MIN/1.73 = 53429) eGFR NON- AMER. (test 9 ML/MIN/1.73 code = 09484) CALC BUN/CREAT (test code = 5 RATIO [...] code = 2219) 10 U/L CBC W/AUTO [id number] 00:00:00 Test Item Value Reference Range Interpretation [...] (test code = 1015) 327 K/UL LIPID [id number] 00:00:00 Test Item Value Reference Range Interpretation Comments CHOLESTEROL (test code = 2210) 240 MG/DL TRIGLYCERIDES (test code = 2232) 395 MG/DL HDL CHOLESTEROL (test code = 2220) 55 MG/DL CALC LDL CHOL (test code = 2237) 106 MG/DL RISK RATIO LDL/HDL (test code = 1.93 RATIO 2238) CBC W/AUTO [id number] 00:00:00 Test Item Value Reference Range Interpretation [...] code = 1015) 327 K/UL CBC W/AUTO [id number] 00:00:00 Test Item Value Reference Range Interpretation [...] (test code = 1015) 327 K/UL HEMOGLOBIN [id number] 00:00:00 Test Item Value Reference Range Interpretation Comments HEMOGLOBIN A1c (test code = 45723) 6.2 % HEMOGLOBIN [id number] 00:00:00 Test Item Value Reference Range Interpretation Comments HEMOGLOBIN A1c (test code = 68013) 6.2 % HEMOGLOBIN [id number] 00:00:00 Test Item Value Reference Range Interpretation Comments HEMOGLOBIN A1c (test code = 73803) 6.2 % [id number] 00:00:00 Test Item Value Reference Range Interpretation Comments TSH, THIRD GENERATION (test >100.000 UIU/ML code = 2821) [id number] 00:00:00 Test Item Value Reference Range Interpretation Comments TSH, THIRD GENERATION (test >100.000 UIU/ML code = 2821) [id number] 00:00:00 Test Item Value Reference Range Interpretation Comments TSH, THIRD GENERATION (test >100.000 UIU/ML code = 2821) CBC W/AUTO [id number] 00:00:00 Test Item Value Reference Range Interpretation [...] code = 1015) 327 K/UL CBC W/AUTO [id number] 00:00:00 Test Item Value Reference Range Interpretation [...] (test code = 1015) 327 K/UL HEMOGLOBIN [id number] 00:00:00 Test Item Value Reference Range Interpretation Comments HEMOGLOBIN A1c (test code = 34248) 6.2 % HEMOGLOBIN [id number] 00:00:00 Test Item Value Reference Range Interpretation Comments HEMOGLOBIN A1c (test code = 78696) 6.2 % COMPREHENSIVE METABOLIC [id number] 00:00:00 Test Item Value Reference Range Interpretation Comments GLUCOSE (test code = 2217) 103 MG/DL BUN (test code = 2208) 35 MG/DL CREATININE (test code = 2214) 6.37 MG/DL eGFR AMER. (test code 11 ML/MIN/1.73 = 75733) eGFR NON- AMER. (test 9 ML/MIN/1.73 code = 14809) CALC BUN/CREAT (test code = 5 RATIO [...] code = 2219) 10 U/L COMPREHENSIVE METABOLIC [id number] 00:00:00 Test Item Value Reference Range Interpretation Comments GLUCOSE (test code = 2217) 103 MG/DL BUN (test code = 2208) 35 MG/DL CREATININE (test code = 2214) 6.37 MG/DL eGFR AMER. (test code 11 ML/MIN/1.73 = 76224) eGFR NON- AMER. (test 9 ML/MIN/1.73 code = 25283) CALC BUN/CREAT (test code = 5 RATIO [...] ALT (test code = 2219) 10 U/L [id number] 00:00:00 Test Item Value Reference Range Interpretation Comments TSH, THIRD GENERATION (test >100.000 UIU/ML code = 2821) [id number] 00:00:00 Test Item Value Reference Range Interpretation Comments TSH, THIRD GENERATION (test >100.000 UIU/ML code = 2821) LIPID [id number] 00:00:00 Test Item Value Reference Range Interpretation Comments CHOLESTEROL (test code = 2210) 240 MG/DL TRIGLYCERIDES (test code = 2232) 395 MG/DL HDL CHOLESTEROL (test code = 2220) 55 MG/DL CALC LDL CHOL (test code = 2237) 106 MG/DL RISK RATIO LDL/HDL (test code = 1.93 RATIO 2238) LIPID [id number] 00:00:00 Test Item Value Reference Range Interpretation Comments CHOLESTEROL (test code = 2210) 240 MG/DL TRIGLYCERIDES (test code = 2232) 395 MG/DL HDL CHOLESTEROL (test code = 2220) 55 MG/DL CALC LDL CHOL (test code = 2237) 106 MG/DL RISK RATIO LDL/HDL (test code = 1.93 RATIO 2238) CBC W/AUTO [id number] 00:00:00 Test Item Value Reference Range Interpretation [...] code = 1015) 327 K/UL CBC W/AUTO [id number] 00:00:00 Test Item Value Reference Range Interpretation [...] code = 1015) 327 K/UL CBC W/AUTO [id number] 00:00:00 Test Item Value Reference Range Interpretation [...] (test code = 1015) 327 K/UL HEMOGLOBIN [id number] 00:00:00 Test Item Value Reference Range Interpretation Comments HEMOGLOBIN A1c (test code = 71117) 6.2 % HEMOGLOBIN [id number] 00:00:00 Test Item Value Reference Range Interpretation Comments HEMOGLOBIN A1c (test code = 96919) 6.2 % HEMOGLOBIN [id number] 00:00:00 Test Item Value Reference Range Interpretation Comments HEMOGLOBIN A1c (test code = 19688) 6.2 % [id number] 00:00:00 Test Item Value Reference Range Interpretation Comments TSH, THIRD GENERATION (test >100.000 UIU/ML code = 2821) [id number] 00:00:00 Test Item Value Reference Range Interpretation Comments TSH, THIRD GENERATION (test >100.000 UIU/ML code = 2821) [id number] 00:00:00 Test Item Value Reference Range Interpretation Comments TSH, THIRD GENERATION (test >100.000 UIU/ML code = 2821) COMPREHENSIVE METABOLIC [id number] 00:00:00 Test Item Value Reference Range Interpretation Comments GLUCOSE (test code = 2217) 103 MG/DL BUN (test code = 2208) 35 MG/DL CREATININE (test code = 2214) 6.37 MG/DL eGFR AMER. (test code 11 ML/MIN/1.73 = 46477) eGFR NON- AMER. (test 9 ML/MIN/1.73 code = 35685) CALC BUN/CREAT (test code = 5 RATIO [...] code = 2219) 10 U/L COMPREHENSIVE METABOLIC [id number] 00:00:00 Test Item Value Reference Range Interpretation Comments GLUCOSE (test code = 2217) 103 MG/DL BUN (test code = 2208) 35 MG/DL CREATININE (test code = 2214) 6.37 MG/DL eGFR AMER. (test code 11 ML/MIN/1.73 = 43966) eGFR NON- AMER. (test 9 ML/MIN/1.73 code = 40891) CALC BUN/CREAT (test code = 5 RATIO [...] (test code = 2219) 10 U/L LIPID [id number] 00:00:00 Test Item Value Reference Range Interpretation Comments CHOLESTEROL (test code = 2210) 240 MG/DL TRIGLYCERIDES (test code = 2232) 395 MG/DL HDL CHOLESTEROL (test code = 2220) 55 MG/DL CALC LDL CHOL (test code = 2237) 106 MG/DL RISK RATIO LDL/HDL (test code = 1.93 RATIO 2238) LIPID [id number] 00:00:00 Test Item Value Reference Range Interpretation Comments CHOLESTEROL (test code = 2210) 240 MG/DL TRIGLYCERIDES (test code = 2232) 395 MG/DL HDL CHOLESTEROL (test code = 2220) 55 MG/DL CALC LDL CHOL (test code = 2237) 106 MG/DL RISK RATIO LDL/HDL (test code = 1.93 RATIO 2238) CBC W/AUTO [id number] 00:00:00 Test Item Value Reference Range Interpretation [...] code = 1015) 327 K/UL CBC W/AUTO [id number] 00:00:00 Test Item Value Reference Range Interpretation [...] code = 1015) 327 K/UL CBC W/AUTO [id number] 00:00:00 Test Item Value Reference Range Interpretation [...] (test code = 1015) 327 K/UL HEMOGLOBIN [id number] 00:00:00 Test Item Value Reference Range Interpretation Comments HEMOGLOBIN A1c (test code = 18788) 6.2 % HEMOGLOBIN [id number] 00:00:00 Test Item Value Reference Range Interpretation Comments HEMOGLOBIN A1c (test code = 93501) 6.2 % HEMOGLOBIN [id number] 00:00:00 Test Item Value Reference Range Interpretation Comments HEMOGLOBIN A1c (test code = 88810) 6.2 % [id number] 00:00:00 Test Item Value Reference Range Interpretation Comments TSH, THIRD GENERATION (test >100.000 UIU/ML code = 2821) [id number] 00:00:00 Test Item Value Reference Range Interpretation Comments TSH, THIRD GENERATION (test >100.000 UIU/ML code = 2821) [id number] 00:00:00 Test Item Value Reference Range Interpretation Comments TSH, THIRD GENERATION (test >100.000 UIU/ML code = 2821) COMPREHENSIVE METABOLIC [id number] 00:00:00 Test Item Value Reference Range Interpretation Comments GLUCOSE (test code = 2217) 103 MG/DL BUN (test code = 2208) 35 MG/DL CREATININE (test code = 2214) 6.37 MG/DL eGFR AMER. (test code 11 ML/MIN/1.73 = 07269) eGFR NON- AMER. (test 9 ML/MIN/1.73 code = 07167) CALC BUN/CREAT (test code = 5 RATIO [...] code = 2219) 10 U/L COMPREHENSIVE METABOLIC [id number] 00:00:00 Test Item Value Reference Range Interpretation Comments GLUCOSE (test code = 2217) 103 MG/DL BUN (test code = 2208) 35 MG/DL CREATININE (test code = 2214) 6.37 MG/DL eGFR AMER. (test code 11 ML/MIN/1.73 = 64768) eGFR NON- AMER. (test 9 ML/MIN/1.73 code = 24523) CALC BUN/CREAT (test code = 5 RATIO [...] (test code = 2219) 10 U/L LIPID [id number] 00:00:00 Test Item Value Reference Range Interpretation Comments CHOLESTEROL (test code = 2210) 240 MG/DL TRIGLYCERIDES (test code = 2232) 395 MG/DL HDL CHOLESTEROL (test code = 2220) 55 MG/DL CALC LDL CHOL (test code = 2237) 106 MG/DL RISK RATIO LDL/HDL (test code = 1.93 RATIO 2238) LIPID [id number] 00:00:00 Test Item Value Reference Range Interpretation Comments CHOLESTEROL (test code = 2210) 240 MG/DL TRIGLYCERIDES (test code = 2232) 395 MG/DL HDL CHOLESTEROL (test code = 2220) 55 MG/DL CALC LDL CHOL (test code = 2237) 106 MG/DL RISK RATIO LDL/HDL (test code = 1.93 RATIO 2238) CBC W/AUTO [id number] 00:00:00 Test Item Value Reference Range Interpretation [...] code = 1015) 327 K/UL CBC W/AUTO [id number] 00:00:00 Test Item Value Reference Range Interpretation [...] code = 1015) 327 K/UL CBC W/AUTO [id number] 00:00:00 Test Item Value Reference Range Interpretation [...] (test code = 1015) 327 K/UL HEMOGLOBIN [id number] 00:00:00 Test Item Value Reference Range Interpretation Comments HEMOGLOBIN A1c (test code = 26115) 6.2 % HEMOGLOBIN [id number] 00:00:00 Test Item Value Reference Range Interpretation Comments HEMOGLOBIN A1c (test code = 64677) 6.2 % HEMOGLOBIN [id number] 00:00:00 Test Item Value Reference Range Interpretation Comments HEMOGLOBIN A1c (test code = 59941) 6.2 % [id number] 00:00:00 Test Item Value Reference Range Interpretation Comments TSH, THIRD GENERATION (test >100.000 UIU/ML code = 2821) [id number] 00:00:00 Test Item Value Reference Range Interpretation Comments TSH, THIRD GENERATION (test >100.000 UIU/ML code = 2821) [id number] 00:00:00 Test Item Value Reference Range Interpretation Comments TSH, THIRD GENERATION (test >100.000 UIU/ML code = 2821) COMPREHENSIVE METABOLIC [id number] 00:00:00 Test Item Value Reference Range Interpretation Comments GLUCOSE (test code = 2217) 103 MG/DL BUN (test code = 2208) 35 MG/DL CREATININE (test code = 2214) 6.37 MG/DL eGFR AMER. (test code 11 ML/MIN/1.73 = 86162) eGFR NON- AMER. (test 9 ML/MIN/1.73 code = 57782) CALC BUN/CREAT (test code = 5 RATIO [...] code = 2219) 10 U/L COMPREHENSIVE METABOLIC [id number] 00:00:00 Test Item Value Reference Range Interpretation Comments GLUCOSE (test code = 2217) 103 MG/DL BUN (test code = 2208) 35 MG/DL CREATININE (test code = 2214) 6.37 MG/DL eGFR AMER. (test code 11 ML/MIN/1.73 = 14416) eGFR NON- AMER. (test 9 ML/MIN/1.73 code = 85716) CALC BUN/CREAT (test code = 5 RATIO [...] (test code = 2219) 10 U/L LIPID [id number] 00:00:00 Test Item Value Reference Range Interpretation Comments CHOLESTEROL (test code = 2210) 240 MG/DL TRIGLYCERIDES (test code = 2232) 395 MG/DL HDL CHOLESTEROL (test code = 2220) 55 MG/DL CALC LDL CHOL (test code = 2237) 106 MG/DL RISK RATIO LDL/HDL (test code = 1.93 RATIO 2238) LIPID [id number] 00:00:00 Test Item Value Reference Range Interpretation Comments CHOLESTEROL (test code = 2210) 240 MG/DL TRIGLYCERIDES (test code = 2232) 395 MG/DL HDL CHOLESTEROL (test code = 2220) 55 MG/DL CALC LDL CHOL (test code = 2237) 106 MG/DL RISK RATIO LDL/HDL (test code = 1.93 RATIO 2238) CBC W/AUTO [id number] 00:00:00 Test Item Value Reference Range Interpretation [...] code = 1015) 327 K/UL CBC W/AUTO [id number] 00:00:00 Test Item Value Reference Range Interpretation [...] code = 1015) 327 K/UL CBC W/AUTO [id number] 00:00:00 Test Item Value Reference Range Interpretation [...] (test code = 1015) 327 K/UL HEMOGLOBIN [id number] 00:00:00 Test Item Value Reference Range Interpretation Comments HEMOGLOBIN A1c (test code = 42713) 6.2 % HEMOGLOBIN [id number] 00:00:00 Test Item Value Reference Range Interpretation Comments HEMOGLOBIN A1c (test code = 96573) 6.2 % HEMOGLOBIN [id number] 00:00:00 Test Item Value Reference Range Interpretation Comments HEMOGLOBIN A1c (test code = 31713) 6.2 % [id number] 00:00:00 Test Item Value Reference Range Interpretation Comments TSH, THIRD GENERATION (test >100.000 UIU/ML code = 2821) [id number] 00:00:00 Test Item Value Reference Range Interpretation Comments TSH, THIRD GENERATION (test >100.000 UIU/ML code = 2821) [id number] 00:00:00 Test Item Value Reference Range Interpretation Comments TSH, THIRD GENERATION (test >100.000 UIU/ML code = 2821) COMPREHENSIVE METABOLIC [id number] 00:00:00 Test Item Value Reference Range Interpretation Comments GLUCOSE (test code = 2217) 103 MG/DL BUN (test code = 2208) 35 MG/DL CREATININE (test code = 2214) 6.37 MG/DL eGFR AMER. (test code 11 ML/MIN/1.73 = 24868) eGFR NON- AMER. (test 9 ML/MIN/1.73 code = 06377) CALC BUN/CREAT (test code = 5 RATIO [...] code = 2219) 10 U/L COMPREHENSIVE METABOLIC [id number] 00:00:00 Test Item Value Reference Range Interpretation Comments GLUCOSE (test code = 2217) 103 MG/DL BUN (test code = 2208) 35 MG/DL CREATININE (test code = 2214) 6.37 MG/DL eGFR AMER. (test code 11 ML/MIN/1.73 = 59829) eGFR NON- AMER. (test 9 ML/MIN/1.73 code = 39628) CALC BUN/CREAT (test code = 5 RATIO [...] (test code = 2219) 10 U/L LIPID [id number] 00:00:00 Test Item Value Reference Range Interpretation Comments CHOLESTEROL (test code = 2210) 240 MG/DL TRIGLYCERIDES (test code = 2232) 395 MG/DL HDL CHOLESTEROL (test code = 2220) 55 MG/DL CALC LDL CHOL (test code = 2237) 106 MG/DL RISK RATIO LDL/HDL (test code = 1.93 RATIO 2238) LIPID [id number] 00:00:00 Test Item Value Reference Range Interpretation Comments CHOLESTEROL (test code = 2210) 240 MG/DL TRIGLYCERIDES (test code = 2232) 395 MG/DL HDL CHOLESTEROL (test code = 2220) 55 MG/DL CALC LDL CHOL (test code = 2237) 106 MG/DL RISK RATIO LDL/HDL (test code = 1.93 RATIO 2238) CBC W/AUTO [id number] 00:00:00 Test Item Value Reference Range Interpretation [...] code = 1015) 327 K/UL CBC W/AUTO [id number] 00:00:00 Test Item Value Reference Range Interpretation [...] code = 1015) 327 K/UL CBC W/AUTO [id number] 00:00:00 Test Item Value Reference Range Interpretation [...] (test code = 1015) 327 K/UL HEMOGLOBIN [id number] 00:00:00 Test Item Value Reference Range Interpretation Comments HEMOGLOBIN A1c (test code = 64264) 6.2 % HEMOGLOBIN [id number] 00:00:00 Test Item Value Reference Range Interpretation Comments HEMOGLOBIN A1c (test code = 90044) 6.2 % HEMOGLOBIN [id number] 00:00:00 Test Item Value Reference Range Interpretation Comments HEMOGLOBIN A1c (test code = 18867) 6.2 % [id number] 00:00:00 Test Item Value Reference Range Interpretation Comments TSH, THIRD GENERATION (test >100.000 UIU/ML code = 2821) [id number] 00:00:00 Test Item Value Reference Range Interpretation Comments TSH, THIRD GENERATION (test >100.000 UIU/ML code = 2821) [id number] 00:00:00 Test Item Value Reference Range Interpretation Comments TSH, THIRD GENERATION (test >100.000 UIU/ML code = 2821) COMPREHENSIVE METABOLIC [id number] 00:00:00 Test Item Value Reference Range Interpretation Comments GLUCOSE (test code = 2217) 103 MG/DL BUN (test code = 2208) 35 MG/DL CREATININE (test code = 2214) 6.37 MG/DL eGFR AMER. (test code 11 ML/MIN/1.73 = 16322) eGFR NON- AMER. (test 9 ML/MIN/1.73 code = 79341) CALC BUN/CREAT (test code = 5 RATIO [...] code = 2219) 10 U/L COMPREHENSIVE METABOLIC [id number] 00:00:00 Test Item Value Reference Range Interpretation Comments GLUCOSE (test code = 2217) 103 MG/DL BUN (test code = 2208) 35 MG/DL CREATININE (test code = 2214) 6.37 MG/DL eGFR AMER. (test code 11 ML/MIN/1.73 = 01257) eGFR NON- AMER. (test 9 ML/MIN/1.73 code = 83882) CALC BUN/CREAT (test code = 5 RATIO [...] (test code = 2219) 10 U/L LIPID [id number] 00:00:00 Test Item Value Reference Range Interpretation Comments CHOLESTEROL (test code = 2210) 240 MG/DL TRIGLYCERIDES (test code = 2232) 395 MG/DL HDL CHOLESTEROL (test code = 2220) 55 MG/DL CALC LDL CHOL (test code = 2237) 106 MG/DL RISK RATIO LDL/HDL (test code = 1.93 RATIO 2238)
[2022-06-15 11:10] LABS: Absolute Lymphocytes (CBC) 0.4 K/uL (0.7-4.9); Lymphocytes % 4.4 % (15.3-44.8); MCV 97.9 fL (80-100); MPV 7.2 fL (7.6-11.3); RBC Red Blood Cell Count 3.47 M/uL (4.33-5.43)
[2022-06-15 11:14] LABS: Blood Gas Oxyhemoglobin 82.2 % (94-97); Blood O2 Saturation 82.9 % (92-98.5)
--- NOTE | 2022-06-15 11:18 | RAD REPORT ---
EXAM DESCRIPTION: RAD - Chest Pa And Lat (2 Views) - 06/15/2022 10:35 am CLINICAL HISTORY: Chest pain Chest pain. COMPARISON: Chest Single View dated 06/09/2022; Chest Single View dated 06/03/2022; Chest Single View da kailey 05/31/2022; Chest Single View dated 05/14/2022 FINDINGS: Mild pulmonary edema is seen. The heart is moderately enlarged in size. Small hiatal herni a. Small bilateral pleural effusions. IMPRESSION: Mild to moderate CHF versus volume overload.
[2022-06-15 11:37] LABS: Albumin 3.9 g/dL (3.4-5.0); Bilirubin Total 0.8 mg/dL (0.2-1.0); Potassium 3.9 mmol/L (3.5-5.1)
--- NOTE | 2022-06-15 13:42 | EDPHYS ---
Physician Documentation [facility] Name: Alejandro Dunbar Age: 57 yrs Sex: Male : 1965 Arrival Date: 06/15/2022 Time: 10:00 Bed 12 Private MD: ED Physician Kevin Larson HPI: 06/15 10:21 This 57 yrs old Male presents to ER via Ambulatory with complaints of bs3 Shortness Of Breath. 10:21 57-year-old male with history of ESRD on HD MWF, hypothyroidism, diabetes mellitus type bs3 2, recently admitted for 10 days for dyspnea, hypoxia, discharged several days ago pw sob since discharge. He did get dialysis today, no fever or chills. Worse with exertion. Historical: - Allergies: 10:10 No Known Allergies; iw - PMHx: 10:10 Diabetes - NIDDM; Dialysis; High Cholesterol; Hypertension; Hypothyroidism; iw - Immunization history:: Adult Immunizations up to date. - Social history:: Smoking status: Patient denies any tobacco usage or history of. ROS: 10:21 Constitutional: Negative for fever, chills bs3 10:21 All other systems are negative. Exam: 10:21 Constitutional: appears chronically ill, but no acute distress Head/Face: bs3 Normocephalic, atraumatic. Eyes: Pupils equal round and reactive to light, extra-ocular motions intact. Lids and lashes normal. ENT: mmm, no posterior phyarngeal erythema Neck: Trachea midline, no thyromegaly, no neck stiffness Chest/axilla: Normal chest wall appearance and motion. Nontender with no deformity. No lesions are appreciated. Cardiovascular: Regular rate and rhythm with a normal S1 and S2. symmetric pulses in upper extremities Respiratory: crackles in left base, slight tachypnea Abdomen/GI: Soft, non-tender, no rebound or guarding Skin: Warm, dry with normal turgor. Normal color with no rashes, no lesions, and no evidence of cellulitis. MS/ Extremity: Pulses equal, no cyanosis. Neurovascular intact. Full, normal range of motion. Neuro: Awake and alert, GCS 15, oriented to person, place, time, and situation. Cranial nerves II-XII grossly intact. Motor strength 5/5 in all extremities. Sensory grossly intact. 13:12 Normal sinus rhythm at [address] elevations or depressions QTc 417 as interpreted by bs3 myself Vital Signs: 10:06 BP 129 / 60; Pulse 70; Resp 20; Temp 97.8; Pulse Ox 95% on R/A; Weight 74.84 kg; Height iw 5 ft. 4 in. (162.56 cm); Pain 0/10; 11:00 BP 139 / 51; Pulse 67; Resp 18; Pulse Ox 94% on R/A; eh3 11:41 BP 124 / 68; Pulse 66; Resp 18; Pulse Ox 94% on R/A; eh3 12:45 BP 134 / 75; Pulse 95; Resp 18; Pulse Ox 93% on R/A; eh3 10:06 Body Mass Index 28.32 (74.84 kg, 162.56 cm) iw MDM: 10:04 Patient medically screened. bs3 10:21 Data reviewed: vital signs, nurses notes, old medical records, discharge note from bs3 prior admission, sent home on bipap, is using bipap. 11:09 Differential diagnosis: Anemia Anxiety Reaction CHF exacerbation, Chronic Obstructive bs3 Pulmonary Disease pneumonia, pulmonary edema, reactive airway disease, Unstable Angina. 13:08 Independent interpretation of the following test(s) in the Emergency Department X-Ray: bs3 My interpretation is Mild pulmonary edema but not significantly changed from prior. 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 13:12 ED course: Labs notable for elevated BNP but he has a significant history of heart bs3 failure, BNP not significantly changed from prior he is compensated with regard to his respiratory acidosis. 13:40 ED course: I discussed the case with Dr. Flanagan hospitalist who discharged him he bs3 came and evaluated the patient the patient was feeling better his O2 sat was 98% on room air, he is at his baseline will discharge home. 06/15 10:12 Order name: CBC with Diff bs3 06/15 10:12 Order name: Comprehensive Metabolic Panel bs3 06/15 10:12 Order name: BNP bs3 06/15 10:12 Order name: Troponin High Sensitivity bs3 06/15 10:49 Order name: ABG: Can we do a VBG bs3 06/15 11:12 Order name: CBC with Automated Diff; Complete Time: 12:11 EDMS 06/15 10:12 Order name: XRAY Chest Pa And Lat (2 Views) bs3 06/15 10:12 Order name: EKG - Nurse/Tech; Complete Time: 11:19 bs3 06/15 10:12 Order name: O2 Sat Monitoring; Complete Time: 11:10 bs3 06/15 11:15 Order name: ABG Arterial Blood Gas; Complete Time: 12:11 EDMS 06/15 11:19 Order name: RAD; Complete Time: 12:11 EDMS 06/15 11:40 Order name: Comprehensive Metabolic Panel; Complete Time: 12:11 EDMS 06/15 11:40 Order name: Troponin High Sensitivity; Complete Time: 12:11 EDMS 06/15 11:40 Order name: NT PRO-BNP; Complete Time: 12:11 EDMS Administered Medications: No medications were administered Disposition Summary: 06/15/22 13:41 Discharge Ordered Location: Home bs3 Problem: new bs3 Symptoms: are resolved bs3 Condition: Fair bs3 Diagnosis - Dyspnea, unspecified bs3 Followup: bs3 - With: Private Physician - When: 48 Hours - Reason: Recheck today's complaints Discharge Instructions: - Discharge Summary Sheet bs3 - Shortness of Breath, Adult bs3 Forms: - Medication Reconciliation Form bs3 - Thank You Letter bs3 - Antibiotic Education bs3 - Prescription Opioid Use bs3 Signatures: Dispatcher [employer] Evette Freitas, SANJAY RN Kevin García MD MD bs3
--- NOTE | 2022-06-15 13:42 | ER ---
Nurse's Notes [facility] Name: Alejandro Dunbar Age: 57 yrs Sex: Male : 1965 Arrival Date: 06/15/2022 Time: 10:00 Bed 12 Private MD: Diagnosis: Dyspnea, unspecified Presentation: 06/15 10:06 Chief complaint: Patient states: i cant breathe, i got dialysis and I can't breathe and iw that nurse over there told me to come over here. i use bipap at night. Coronavirus screen: Vaccine status: Patient reports receiving the 2nd dose of the covid vaccine. Client denies travel out of the [place] in the last 14 days. Ebola Screen: Patient negative for fever greater than or equal to 101.5 degrees Fahrenheit, and additional compatible Ebola Virus Disease symptoms Patient denies exposure to infectious person. Patient denies travel to an Ebola-affected area in the 21 days before illness onset. Initial Sepsis Screen: Does the patient meet any 2 criteria? No. Patient's initial sepsis screen is negative. Does the patient have a suspected source of infection? No. Patient's initial sepsis screen is negative. Risk Assessment: Do you want to hurt yourself or someone else? Patient reports no desire to harm self or others. 10:06 Method Of Arrival: Ambulatory iw 10:06 Acuity: KERRI 3 iw 13:52 Onset of symptoms was June 15, 2022. eh3 Triage Assessment: 10:10 General: Appears uncomfortable, Behavior is calm, cooperative, appropriate for age. iw Pain: Denies pain. Respiratory: Reports shortness of breath Onset: The symptoms/episode began/occurred gradually, the patient has mild shortness of breath. Historical: - Allergies: 10:10 No Known Allergies; iw - PMHx: 10:10 Diabetes - NIDDM; Dialysis; High Cholesterol; Hypertension; Hypothyroidism; iw - Immunization history:: Adult Immunizations up to date. - Social history:: Smoking status: Patient denies any tobacco usage or history of. Screenin:15 [facility] ED Fall Risk Assessment (Adult) History of falling in the last 3 months, 3 including since admission No falls in past 3 months (0 pts) Confusion or Disorientation No (0 pts) Intoxicated or Sedated No (0 pts) Impaired Gait No (0 pts) Mobility Assist Device Used No (0 pt) Altered Elimination No (0 pt) Score/Fall Risk Level 0 - 2 = Low Risk. Abuse screen: Denies threats or abuse. Denies injuries from another. Nutritional screening: No deficits noted. Tuberculosis screening: No symptoms or risk factors identified. Assessment: 10:15 General: Appears in no apparent distress. uncomfortable, Behavior is calm, cooperative, eh3 appropriate for age. Pain: Denies pain. Neuro: Level of Consciousness is awake, alert, obeys commands, Oriented to person, place, time, situation. Cardiovascular: Capillary refill < 3 seconds Patient's skin is warm and dry. Rhythm is sinus rhythm. Respiratory: Airway is patent Respiratory effort is even, labored, Respiratory pattern is regular, symmetrical, Breath sounds are coarse bilaterally. Respiratory: Reports shortness of breath at rest labored breathing. GI: No signs and/or symptoms were reported involving the gastrointestinal system. GI: Abdomen is round non-distended. : No signs and/or symptoms were reported regarding the genitourinary system. EENT: No signs and/or symptoms were reported regarding the EENT system. Derm: No signs and/or symptoms reported regarding the dermatologic system. Skin is pink, warm \T\ dry. Musculoskeletal: No signs and/or symptoms reported regarding the musculoskeletal system. Circulation, motion, and sensation intact. Range of motion: intact in all extremities. 11:15 Reassessment: Patient appears in no apparent distress at this time. Patient and/or eh3 family updated on plan of care and expected duration. Pain level reassessed. Patient is alert, oriented x 3, equal unlabored respirations, skin warm/dry/pink. 12:15 Reassessment: Patient appears in no apparent distress at this time. Patient and/or eh3 family updated on plan of care and expected duration. Pain level reassessed. Patient is alert, oriented x 3, equal unlabored respirations, skin warm/dry/pink. 13:15 Reassessment: Patient appears in no apparent distress at this time. Patient and/or eh3 family updated on plan of care and expected duration. Pain level reassessed. Patient is alert, oriented x 3, equal unlabored respirations, skin warm/dry/pink. Vital Signs: 10:06 BP 129 / 60; Pulse 70; Resp 20; Temp 97.8; Pulse Ox 95% on R/A; Weight 74.84 kg; Height iw 5 ft. 4 in. (162.56 cm); Pain 0/10; 11:00 BP 139 / 51; Pulse 67; Resp 18; Pulse Ox 94% on R/A; eh3 11:41 BP 124 / 68; Pulse 66; Resp 18; Pulse Ox 94% on R/A; eh3 12:45 BP 134 / 75; Pulse 95; Resp 18; Pulse Ox 93% on R/A; eh3 10:06 Body Mass Index 28.32 (74.84 kg, 162.56 cm) iw ED Course: 10:00 Patient arrived in ED. as 10:02 Kevin Larson MD is Attending Physician. bs3 10:10 Triage completed. iw 10:10 Arm band placed on left wrist. iw 10:15 Patient has correct armband on for positive identification. Bed in low position. Call eh3 light in reach. Side rails up X2. Client placed on continuous cardiac and pulse oximetry monitoring. NIBP monitoring applied. Door closed. Noise minimized. Lights dimmed. Warm blanket given. Pillow given. 10:57 Janay Marshall, RN is Primary Nurse. eh3 10:57 Missed attempt(s): 20 gauge in right antecubital area. Bleeding controlled, band aid eh3 applied, catheter tip intact. 11:19 EKG done, by ED staff, reviewed by Kevin Larson MD. em1 13:03 Diet: Patient given snack. Patient given water. Tolerated well. eh3 13:52 No provider procedures requiring assistance completed. IV discontinued, intact, eh3 bleeding controlled, No redness/swelling at site. Pressure dressing applied. Administered Medications: No medications were administered Medication: 13:52 VIS not applicable for this client. eh3 Outcome: 13:41 Discharge ordered by . bs3 13:52 Discharged to home ambulatory. eh3 13:52 Condition: stable 13:52 Discharge instructions given to patient, Instructed on discharge instructions, follow up and referral plans. Demonstrated understanding of instructions, follow-up care. 13:53 Patient left the ED. eh3 Signatures: Aleja Flores Irene, RN RN iw Kory Flores em1 Janay Marshall RN RN eh3 Kevin Larson MD MD bs3 Corrections: (The following items were deleted from the chart) 13:52 13:03 Reassessment: Patient appears in no apparent distress at this time. Patient eh3 and/or family updated on plan of care and expected duration. Pain level reassessed. Patient is alert, oriented x 3, equal unlabored respirations, skin warm/dry/pink. eh3
[2022-06-15 14:04] VITALS: TEMP 97.8
[2022-06-15 14:07] VITALS: BP 134/75; O2SAT 93
--- NOTE | 2022-06-16 17:15 | EKG ---
Test Date: 2022-06-15 Test Time: 11:16:48 Architectural Designer: SCOTT MEASUREMENT RESULTS: Intervals: Rate: 66 PA: 154 QRSD: 86 QT: 398 QTc: 417 Edgar: P: 44 PA: 154 QRS: 61 T: 87 INTERPRETIVE STATEMENTS: Normal sinus rhythm Normal ECG Compared to ECG 05/31/2022 22:08:43 No significant changes Electronically Signed On 06-16-22 17:10:12 [employer]OUTE SALESM[employer] by Joe Al
== END 2022-06-15 13:53 | disposition home or self-care (01) ==
LOC: ER 09:59
DX: R06.00 Dyspnea, unspecified (principal); E11.22 Type 2 diabetes mellitus with diabetic chronic kidney disease; I12.0 Hypertensive chronic kidney disease with stage 5 chronic kidney disease or end stage renal disease; N18.6 End stage renal disease; Z99.2 Dependence on renal dialysis
CPT/HCPCS: 36415; 71046; 80053; 82805; 83880; 84484; 85025; 93005; 99284

== ENCOUNTER 2022-09-14 20:49 | Emergency (ER) | payer OTHER ==
--- OUTSIDE RECORDS SUMMARY | 2022-09-14 21:11 | XMS REPORT | Continuity of Care Document ---
:1965 Author Organization [facility] t Address [address] [facility] [address] [place] [address] Care Team Providers Name Role Phone GERRI VINCENT Primary Care Physician Unavailable [id number] Attending Clinician Unavailable IRMA NICHOLSON Attending Clinician Unavailable SYLVAIN OLIVARES Attending Clinician Unavailable HO DENNISON Attending Clinician Unavailable JACINTO SIMPSON Attending Clinician Unavailable JOSELUIS FERNANDEZ Attending Clinician Unavailable Doctor Unassigned, [place] Attending Clinician Unavailable GERRI VINCENT Attending Clinician Unavailable Stephani Mcginnis Anavella Attending Clinician Unava ilable Provider, Undefined Attending Clinician Unavailable Mami Fall RN Attending Clinician Unavailable Joseluis Fernandez MD Attending Clinician Lab, Ang - Db Attending Clinician Unavailable Radiology Attending Clinician Unavailable RADIOLOGY Attending Clinician Unavailable Shantel Ko RN Attending Clinician Unavailable SAM RAMIRES Attending Clinician Unavailable Sam Ramires MD Attending Clinician DAEN GARCIA Attending Clinician Unavailable Dean Garcia MD Attending Clinician MARCUS CABALLERO Attending Clinician Unavailable HUNTER GIPSON Attending Clinician Unavailable [id number] Admitting Clinician Unavailable IRMA NICHOLSON Admitting Clinician Unavailable SYLVAIN OLIVARES Admitting Clinician Unavailable GERRI VINCENT Admitting Clinician Unavailable Leo Mcginnis Anav Admitting Clinician Unavailable BETTINA SHEEHAN Admitting Clinician Unavailable Payers Payer Name Policy Type Policy Number Effective Date Expiration Date S [facility] MEDICARE A B [id number] 2018 00:00:00 CDC REVIEW [id number] 2019 00:00:00 MEDICAID [facility] [id number] 2019 00:00:00 WELLMED/UHC DUAL [id number] 2022 COMP HMO D SNP 00:00:00 MEDICAID OF [place] [id number] 2019 00:00:00 [facility] [id number] MEDICARE PART A [id number] 2018 \T\ B 00:00:00 Problems Condition Condition [...] stage (end stage renal renal disease) disease) Secondary Secondary Disease Recurre [facility] hyperparat hyperparat 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 hyroidism 00:00: Medi benjy of renal of renal 00 Center origin origin Hypothyroi Hypothyroi Disease Active [facility] dism, dism, 3-12 [facility] unspecifie unspecifie 00:00: Me dical d type d type 00 Center Hyperlipid Hyperlipid Disease Active [facility] emia, emia, 3-12 [facility] unspecifie unspecifie 00:00: Me dical d d 00 Center hyperlipid hyperlipid emia type emia type Obesity Obesity Disease Active [facility] (BMI (BMI 3-12 [facility] 30-39.9) 30-39.9) 00:00: Medica l 00 Center Type 2 Type [address] [facility] diabetes diabetes nce - [facility] mellitus mellitus 00:00: Medica l with with 00 Center chronic chronic kidney kidney disease on disease on chronic chronic dialysis, dialysis, without without long-term long-term current current use of use of insulin insulin Pre-transp Pre-transp Disease Active [facility] lant lant 05-23 [facility] evaluation evaluation 00:00: Me dical for for 00 Center chronic chronic kidney kidney disease disease Essential Essential Disease Active [facility] hypertensi hypertensi 05-23 Ann-Marie kes on on 00:00: Medical 00 Center Dizziness Dizziness Disease Active Uni vers 9-10 ity of 00:00: [place] [id number] Medical Branch Pre-syncop Pre-syncop Disease Active U nivers e e 01-08 ity of 00:00: [address] Branch Elevated Elevated Disease Active 2017-05 Unive rs troponin I troponin I 05-04 it y of level level 00:00: [address] Branch Elevated Elevated Disease Active 2017-05 Unive rs brain brain 05-04 ity of natriureti natriureti 00:00[place] c peptide c peptide 00 Medi benjy (BNP) (BNP) Branch level level Essential Essential Disease Active 2017-05 Uni vers hypertensi hypertensi - it y of on on 00:00: [address] Branch Dyslipidem Dyslipidem Disease Active 2017-05 U nivers ia ia 05-04 ity of 00:00: [address] Branch Hypocalcem Hypocalcem Disease Active 2017-05 U nivers ia ia 05-03 ity of 00:00: [address] Branch ESRD (end ESRD (end Disease Active Overview: Methodi stage stage Formattin st renal renal g of this Hospita [...] 00:00: reaction 00 to drug NO KNOWN Drug Active Univers ALLERGIE Class ity of [facility] NO KNOWN Allergy Active [facility] ALLERGIE S Family History Family Member Diagnosis Comments Start Date Stop Date Source Natural father Alcohol abuse [facility] Natural sister Diabetes [facility] Natural sister Kidney disease [facility] Natural sister No Known Problem [facility] Natural brother No Known Problem [facility] Natural mother No Known Problem [facility] Social History Social Habit Start Date Stop Date Quantity Comments Source History SDOH [facility] Alcohol Comment Medical C enter History of tobacco Cigarette Smoker [facility] use [facility] History SDOH [facility] Alcohol Std Drinks [facility] History SDOH [facility] Alcohol Binge Medical [facility] Gender identity [facility] Sexual orientation [facility] Exposure to 2021-11-22 2021-12-02 Not sure [facility]-CoV-2 (event) 00:00:00 14:04:00 [facility] Cigarettes smoked 2019-12-14 2019-12-[address] [facility] current (pack per 00:00:00 00:00:00 Medical Center day) - Reported Cigarette 2019-12-14 2019-12-[address] [facility] pack-years 00:00:00 00:00:00 Medical Center History SDOH 2019-05-23 2019-05-[address] [facility] Alcohol Frequency 00:00:00 00:00:00 Medical Center Alcohol intake 2019-01-06 2019-01-06 Lifetime [facility] 00:00:00 00:00:00 non-drinker Hospital (finding) History of Social 2019-01-05 2019-01-[address] function 00:00:00 00:00:00 Hospital Tobacco use and 2018-03-03 2018-03-03 Smokeless Universit y of exposure 00:00:00 00:00:00 tobacco non-user [facility] Sex Ass[birth year] [facility] 00:00:00 00:00:00 Hospital Smoking Status Start Date Stop Date Source Ex-smoker 2018-03-03 00:00:00 2018-03-03 00:00:[facility] Medications Ordered Filled Start Stop Current Ordering [...] 2021-05 No Unknown 2-14 00:00: 00 TAKE 2021-05 No CAPSULE 3 2-13 TIMES DAILY [...] 2021-05 No Unknown 2-13 00:00: 00 TAKE 2021-05 No CAPSULE 3 2-13 TIMES DAILY 00:00: NEEDED. 00 TAKE 1 2021-05 No TABLET BY 2-13 MOUTH EVERY 00:00: DAY FOR 10 00 DAYS TAKE 2021-05 No CAPSULE BY 2-13 MOUTH EVERY 00:00: DAY 00 Dose 2021-05 No Unknown 2-13 00:00: 00 Dose 2022-1 No Unknown 2-13 00:00: 00 Dose 2022-1 No Unknown 2-13 00:00: 00 Dose 2022-1 No Unknown 2-13 00:00: 00 Dose 2-1 No Unknown 2-13 00:00: 00 Dose 2022-1 No Unknown 2-13 00:00: 00 Dose 2022-1 No Unknown 2-13 00:00: 00 levothyroxi 2022-0 Yes [id number] 224ug Take 2 Univers ne 112 mcg 8-23 tablets by ity of tablet 00:00: mouth [place] every Medical morning. [place] levothyroxi 2021-0 Yes [id number] 224ug Take 2 Univers ne 112 mcg 8-23 tablets by ity of tablet 00:00: [facility] every Medical morning. Branch INSTILL 1 2021-0 [...] No Unknown 8-10 00:00: 00 TAKE 1 2-0 [...] TABS 00:00: 00 Dose 2022-0 No Unknown 808 00:00: 00 Dose 2022-0 No Unknown 808 00:00: 00 ATORVASTATI 2022-0 No N CALCIUM 8-08 80 MG TABS 00:00: 00 Dose 2022-0 No Unknown 8-08 00:00: 00 &lt 2022-0 No 8-08 00:00: 00 &lt 2022-0 No 80 8-08 00:00: 00 Dose 2022-0 No Unknown 808 00:00: 00 &lt 2022-0 No 8-08 00:00: [...] 2-0 No 8-05 00:00: 00 INSTILL 1 2-0 [...] 2-0 No 8-05 00:00: 00 INSTILL 1 2-0 No DROP IN 8-05 BOTH EYES 00:00: EVERY DAY 00 TAKE 1 2022-0 No 2 TABLET 8-05 EVERY 6 00:00: HOURS BY 00 OR[address] NEEDED FOR 7 DAYS. &lt 2-0 No 8-05 00:00: 00 INSTILL 1 2022-0 No DROP [...] No 25 7-26 00:00: 00 TAKE 1 2-0 No 2 TABLET 7-26 EVERY 6 00:00: HOURS BY 00 OR[address]TE NEEDED FOR 7 DAYS. Dose 2-0 No Unknown 7- 00:00: 00 &lt 2022-0 No 25 7- 00:00: 00 TAKE 1 2-0 No 2 TABLET 7-26 EVERY 6 00:00: HOURS BY 00 ORAL ROUTE NEEDED FOR 7 DAYS. Dose 2021-0 No Unknown 7- 00:00: 00 &lt 2022-0 No 25 7-26 00:00: 00 TAKE 1 2-0 No 2 TABLET 7-26 EVERY 6 00:00: HOURS BY 00 ORAL ROUTE NEEDED FOR 7 DAYS. Dose 2-0 No Unknown 7- 00:00: 00 &lt 2022-0 No 25 7-26 00:00: 00 TAKE 1 2-0 No 2 TABLET 7-26 EVERY 6 00:00: HOURS BY 00 ORAL ROUTE NEEDED FOR 7 DAYS. Dose 2-0 No Unknown 7-26 00:00: 00 &lt 2022-0 No 25 7-26 00:00: 00 TAKE 1 2-0 No 2 TABLET 7-26 EVERY 6 00:00: HOURS BY 00 ORAL ROUTE NEEDED FOR 7 DAYS. Dose 2-0 No Unknown 7-26 00:00: 00 &lt 2022-0 No 25 7-26 00:00: 00 TAKE 1 2022-0 No 2 TABLET 7-26 EVERY 6 00:00: HOURS BY 00 ORAL ROUTE NEEDED FOR 7 DAYS. Dose 2-0 No Unknown 7-26 00:00: 00 &lt 2022-0 No 25 11-25 [...] 75 Unknown 11-24 00:00: 00 TAKE 1 2022-0 No 300 CAPSULE BY 7-25 MOUTH EVERY 00:00: DAY 00 &lt 2022-0 No 10 11-24 00:00: 00 INSTILL 1 2022-0 No DROP INTO 7-25 BOTH EYES 00:00: EVERY 00 MORNING &lt 2022-0 No 800 11-24 00:00: 00 Dose 2022-0 No 75 Unknown 11-24 00:00: 00 TAKE 1 2022-0 No 300 [...] No 10 11-21 00:00: 00 INSTILL 1 2-0 No DROP IN 7-22 BOTH EYES 00:00: EVERY DAY 00 &lt 2022-0 No 500 11-21 00:00: 00 Dose 2022-0 No 80 Unknown 11-21 00:00: 00 &lt 2022-0 No 7- 00:00: 00 &lt 2022-0 No 10 - 00:00: 00 INSTILL 1 2-0 No DROP IN 7-22 BOTH EYES 00:00: EVERY DAY 00 &lt 2022-0 No 10 7- 00:00: 00 INSTILL 1 2-0 No DROP IN 7-22 BOTH EYES 00:00: EVERY DAY 00 &lt 2022-0 No 500 11-21 00:00: 00 Dose 2022-0 No 80 Unknown 11-21 00:00: 00 &lt 2022-0 No 7- 00:00: 00 &lt 2022-0 No 500 7 00:00: 00 Dose 2022-0 No 80 Unknown 11-21 00:00: 00 &lt 2022-0 No 7- 00:00: 00 &lt 2022-0 No 10 7 00:00: 00 INSTILL 1 2021-0 No DROP IN 7-22 BOTH EYES 00:00: EVERY DAY 00 &lt 2022-0 No 500 7 00:00: 00 Dose 2-0 No 80 Unknown [...] IN 7-20 BOTH EYES 00:00: EVERY DAY INSTILL 1 2-0 No DROP IN 7-20 BOTH EYES 00:00: EVERY DAY INSTILL 1 2-0 No DROP IN 7-20 [...] 00 &lt 2022-0 No 6-21 00:00: 00 Simoneuvia 25 2-0 No 1mg mg tablet 4-07 00:00: 00 amlodipine 2022-0 No 1mg 10 mg 4-07 tablet 00:00: 00 atorvastati 2022-0 No 1mg n 80 mg 4-07 tablet 00:00: 00 Januvia 25 2-0 No 1mg mg tablet 4- 00:00: 00 amlodipine 2022-0 No 1mg 10 mg 4-07 tablet 00:00: 00 atorvastati 2022-0 No 1mg n 80 mg 4-07 tablet 00:00: 00 Januvia 25 2-0 No 1mg mg tablet 4- 00:00: 00 amlodipine 2022-0 No 1mg 10 mg 4-07 tablet 00:00: 00 atorvastati 2022-0 No 1mg n 80 mg 4-07 tablet 00:00: 00 Januvia 25 2-0 No 1mg mg tablet 4- [...] No Unknown 4-07 00:00: 00 Januvia 25 2022-0 No 1mg mg tablet 4-07 00:00: 00 amlodipine 2022-0 No 1mg 10 mg 4-07 tablet 00:00: 00 atorvastati 2022-0 No 1mg n 80 mg 4-07 tablet 00:00: 00 Januvia 25 2-0 No 1mg mg tablet 4- [...] Dose 2022-0 No Unknown 3-16 00:00: 00 levothyroxi 2-0 Yes 1{tbl} Take 1 Un capri ne 200 mcg 3-03 tablet by ity of tablet 00:00: mouth [place] 00 every Medical morning. Branch levothyroxi 2021-0 2021- No 1{tbl} Take 1 U nivers ne 200 mcg 3-03 08-23 tablet by ity of tablet 00:00: 00:00 mouth [place] 00 :00 every Medical morning. Branch UNITHROID 2021-0 Yes 1{tbl} Take 1 Univ ers 25 mcg 2-04 tablet by ity of tablet 00:00: mouth every Medical morning. Branch Januvia 25 2021-0 [...] mcg 2-04 tablet 00:00: 00 UNITHROID 2022-0 2022- No 1{tbl} Take 1 Uni vers 25 mcg 2-04 08-23 tablet by ity of tablet 00:00: 00:00 mouth [place] 00 :00 every Medical morning. Branch lisinopriL 2-0 Yes 5mg Take 5 mg Un capri 5 mg tablet -07 by mouth ity of 00:00: daily. [address] lisinopriL 2-0 Yes 5mg Take 5 mg Un capri 5 mg tablet 1-07 by mouth ity of 00:00: daily. [address] Branch lisinopriL 2-0 Yes 5mg Take 5 mg Un capri 5 mg tablet 07 by mouth ity of 00:00: daily. [address] amlodipine 2020-05 No 1mg 10 mg 2-30 tablet 00:00: 00 amlodipine 2020-05 No 1mg 10 mg 2-30 tablet 00:00: 00 amlodipine 2020-05 No 1mg 10 mg 2-30 tablet 00:00: 00 Dose 2020- No Unknown 2-30 00:00: 00 Dose 2020- No Unknown 2-30 00:00: 00 amlodipine 2020-05 No 1mg 10 mg 2-30 tablet 00:00: 00 amlodipine 2020-05 No 1mg 10 mg 2-30 tablet 00:00: 00 amlodipine 2020-05 No 1mg 10 mg 2-30 [...] No Unknown 2-02 00:00: 00 lidocaine 4 2020- No 1% [...] 9-29 800 mg 00:00: tablet 00 amlodipine 1-0 No 1mg 10 [...] 6-07 00:00: 00 Dose 2021-0 No Unknown 6- [...] 2021-0 No Unknown 6-07 00:00: 00 fenofibrate 1-0 No 1mg nanocrystal [...] 25 mg 4-13 tablet 00:00: 00 levothyroxi 1-0 No 1mcg ne 200 mcg 4-13 tablet [...] lized 145 00:00: mg tablet 00 atorvastati 2019-1 No 1mg n 40 mg 2-04 tablet 00:00: 00 glipizide 2019-1 No 1mg ER 5 mg 2-04 tablet, 00:00: extended 00 release 24 hr fenofibrate 2019-1 No 1mg nanocrystal 2-04 lized 145 00:00: mg tablet 00 atorvastati 2019-1 No 1mg n 40 mg 2-04 tablet 00:00: 00 glipizide 2019-1 No 1mg ER 5 mg 2-04 tablet, 00:00: extended 00 release 24 hr fenofibrate 2019-1 No 1mg nanocrystal 2-04 lized 145 00:00: mg tablet 00 atorvastati 2019-1 No 1mg n 40 mg 2-04 tablet [...] 100 mcg 2-02 tablet 00:00: 00 diclofenac 2019-1 No 1% [...] 2019- No Unknown 2-02 00:00: 00 diclofenac 2019-05 No 1% 1 [...] Dose 2020-1 No Unknown 2-02 00:00: 00 diclofenac 2019- [...] 10 MG 17:30: nightly. Medical tablet [address] [place] calcium 2020-0 Yes 3{tbl} Q.[id number] Take [address] [facility] carbonate 8-15 [id number] tablets by [facility] (TUMS) 500 17:30: 3D mouth 3 Medi benjy mg chewable 21 (three) Cente r tablet times daily. furosemide 2020-0 Yes 20mg QD Take [address] (LASIX) 20 8-15 by mouth [facility] MG tablet 17:30: daily. Medica l [address] [place] lovastatin 2020-0 Yes 10mg QD Take [address] (MEVACOR) 8-15 by mouth [facility] 10 MG 17:30: nightly. Medical tablet [address] [place] calcium 2020-0 Yes 3{tbl} Q.[id number] Take [address] carbonate 8-15 [id number] tablets by [facility] (TUMS) 500 17:30: 3D mouth 3 Medi benjy mg chewable 21 (three) Cente r tablet times daily. furosemide 2020-0 Yes 20mg QD Take [address] (LASIX) 20 8-15 by mouth [facility] MG tablet 17:30: daily. Medica l [address] [place] [address] lovastatin 2020-0 Yes 10mg QD Take [address] (MEVACOR) 8-15 by mouth [facility] 10 MG 17:30: nightly. Medical tablet [address] [place] [address] calcium 2020-0 Yes 3{tbl} Q.[id number] Take [address] carbonate 8-15 [id number] tablets by [facility] (TUMS) 500 17:30: 3D mouth 3 Medi benjy mg chewable 21 (three) Cente r tablet times daily. furosemide 2020-0 Yes 20mg QD Take [address] (LASIX) 20 8-15 by mouth [facility] MG tablet 17:30: daily. [facility] [address] lovastatin 2020-0 Yes 10mg QD Take [address] (MEVACOR) 8-15 by mouth [facility] 10 MG 17:30: nightly. Medical tablet [address] [place] [address] calcium 2020-0 Yes 3{tbl} Q.[id number] Take [address] carbonate 8-15 [id number] tablets by [facility] (TUMS) 500 17:30: 3D mouth 3 Medi benjy mg chewable 21 (three) Cente r tablet times daily. furosemide 2020-0 Yes 20mg QD Take [address] (LASIX) 20 8-15 by mouth [facility] MG tablet 17:30: daily. [facility] [address] lovastatin 2020-0 Yes 10mg QD Take [address] (MEVACOR) 8-15 by mouth [facility] 10 MG 17:30: nightly. Medical tablet [address] [place] [address] calcium 2020-0 Yes 3{tbl} Q.[id number] Take [address] carbonate 8-15 [id number] tablets by [facility] (TUMS) 500 17:30: 3D mouth 3 Medi benjy mg chewable 21 (three) Cente r tablet times daily. furosemide 2020-0 Yes 20mg QD Take [address] (LASIX) 20 8-15 by mouth [facility] MG tablet 17:30: daily. [address] lovastatin 2020-0 Yes 10mg QD Take [address] (MEVACOR) 8-15 by mouth [facility] 10 MG 17:30: nightly. Medical tablet [address] [place] [address] calcium 2020-0 Yes 3{tbl} Q.[id number] Take [address] carbonate 8-15 [id number] tablets by [facility] (TUMS) 500 17:30: 3D mouth 3 Medi benjy mg chewable 21 (three) Cente r tablet times daily. furosemide 2020-0 Yes 20mg QD Take [address] (LASIX) 20 8-15 by mouth [facility] MG tablet 17:30: daily. [address] lovastatin 2020-0 Yes 10mg QD Take [address] (MEVACOR) 8-15 by mouth [facility] 10 MG 17:30: nightly. Medical tablet [address] [place] [address] calcium 2020-0 Yes 3{tbl} Q.[id number] Take [address] carbonate 8-15 [id number] tablets by [facility] (TUMS) 500 17:30: 3D mouth 3 Medi benjy mg chewable 21 (three) Cente r tablet times daily. furosemide 2020-0 Yes 20mg QD Take [address] (LASIX) 20 8-15 by mouth [facility] MG tablet 17:30: daily. [address] lovastatin 2020-0 Yes 10mg QD Take [address] (MEVACOR) 8-15 by mouth [facility] 10 MG 17:30: nightly. Medical tablet [address] [place] [address] calcium 2020-0 Yes 3{tbl} Q.[id number] Take [address] carbonate 8-15 [id number] tablets by [facility] (TUMS) 500 17:30: 3D mouth 3 Medi benjy mg chewable 21 (three) Cente r tablet times daily. furosemide 2020-0 Yes 20mg QD Take [address] (LASIX) 20 8-15 by mouth [facility] MG tablet 17:30: daily. [address] lovastatin 2020-0 Yes 10mg QD Take [address] (MEVACOR) 8-15 by mouth [facility] 10 MG 17:30: nightly. Medical tablet [address] [place] [address] calcium 2020-0 Yes 3{tbl} Q.[id number] Take [address] carbonate 8-15 [id number] tablets by [facility] (TUMS) 500 17:30: 3D mouth 3 Medi benjy mg chewable 21 (three) Cente r tablet times daily. furosemide 2020-0 Yes 20mg QD Take [address] (LASIX) 20 8-15 by mouth [facility] MG tablet 17:30: daily. Medica [address] lovastatin 2020-0 Yes 10mg QD Take [address] (MEVACOR) 8-15 by mouth [facility] 10 MG 17:30: nightly. Medical tablet [address] [place] [address] calcium 2020-0 Yes 3{tbl} Q.[id number] Take [address] carbonate 8-15 [id number] tablets by [facility] (TUMS) 500 17:30: 3D mouth 3 Medi benjy mg chewable 21 (three) Cente r tablet times daily. furosemide 2020-0 Yes 20mg QD Take [address] (LASIX) 20 8-15 by mouth [facility] MG tablet 17:30: daily. [facility] [address] lovastatin 2020-0 Yes 10mg QD Take [address] (MEVACOR) 8-15 by mouth [facility] 10 MG 17:30: nightly. Medical tablet [address] [place] [address] calcium 2020-0 Yes 3{tbl} Q.[id number] Take [address] carbonate 8-15 [id number] tablets by [facility] (IntroBridgeS) 500 17:30: 3D mouth 3 Medi benjy mg chewable 21 (three) Cente r tablet times daily. furosemide 2020-0 Yes 20mg QD Take [address] (LASIX) 20 8-15 by mouth [facility] MG tablet 17:30: daily. [facility] [address] lovastatin 2020-0 Yes 10mg QD Take [address] (MEVACOR) 8-15 by mouth [facility]ukes 10 MG 17:30: nightly. Medical tablet [address] [place] [address] calcium 2020-0 Yes 3{tbl} Q.[id number] Take [address] carbonate 8-15 [id number] tablets by [facility] (TUMS) 500 17:30: 3D mouth 3 Medi benjy mg chewable 21 (three) Cente r tablet times daily. furosemide 2020-0 Yes 20mg QD Take [address] (LASIX) 20 8-15 by mouth [facility] MG tablet 17:30: daily. [address] lovastatin 2020-0 Yes 10mg QD Take [address] (MEVACOR) 8-15 by mouth [facility] 10 MG 17:30: nightly. Medical tablet [address] [place] [address] calcium 2020-0 Yes 3{tbl} Q.[id number] Take [address] carbonate 8-15 [id number] tablets by [facility] (TUMS) 500 17:30: 3D mouth 3 Medi benjy mg chewable 21 (three) Cente r tablet times daily. furosemide 2020-0 Yes 20mg QD Take [address] (LASIX) 20 8-15 by mouth [facility] MG tablet 17:30: daily. [address] lovastatin 2020-0 Yes 10mg QD Take [address] (MEVACOR) 8-15 by mouth [facility] 10 MG 17:30: nightly. Medical tablet [address] [place] [address] calcium 2020-0 Yes 3{tbl} Q.[id number] Take [address] carbonate 8-15 [id number] tablets by [facility] (IntroBridgeS) 500 17:30: 3D mouth 3 Medi benjy mg chewable 21 (three) Cente r tablet times daily. furosemide 2020-0 Yes 20mg QD Take [address] (LASIX) 20 8-15 by mouth [facility] MG tablet 17:30: daily. [address] lovastatin 2020-0 Yes 10mg QD Take [address] (MEVACOR) 8-15 by mouth [facility] 10 MG 17:30: nightly. Medical tablet [address] [place] [address] calcium 2020-0 Yes 3{tbl} Q.[id number] Take [address] carbonate 8-15 [id number] tablets by [facility] (TUMS) 500 17:30: 3D mouth 3 Medi benjy mg chewable 21 (three) Cente r tablet times daily. furosemide 2020-0 Yes 20mg QD Take [address] (LASIX) 20 8-15 by mouth [facility] MG tablet 17:30: daily. [address] lovastatin 2020-0 Yes 10mg QD Take [address] (MEVACOR) 8-15 by mouth [facility] 10 MG 17:30: nightly. Medical tablet [address] [place] [address] calcium 2020-0 Yes 3{tbl} Q.[id number] Take [address] carbonate 8-15 [id number] tablets by [facility] (IntroBridgeS) 500 17:30: 3D mouth 3 Medi benjy mg chewable 21 (three) Cente r tablet times daily. furosemide 2020-0 Yes 20mg QD Take [address] (LASIX) 20 8-15 by mouth [facility] MG tablet 17:30: daily. [facility] [address] lovastatin 2020-0 Yes 10mg QD Take [address] (MEVACOR) 8-15 by mouth [facility] 10 MG 17:30: nightly. Medical tablet [address] [place] [address] calcium 2020-0 Yes 3{tbl} Q.[id number] Take [address] carbonate 8-15 [id number] tablets by [facility] (IntroBridgeS) 500 17:30: 3D mouth 3 Medi benjy mg chewable 21 (three) Cente r tablet times daily. furosemide 2020-0 Yes 20mg QD Take [address] (LASIX) 20 8-15 by mouth [facility] MG tablet 17:30: daily. [facility] [address] lovastatin 2020-0 Yes 10mg QD Take [address] (MEVACOR) 8-15 by mouth [facility] 10 MG 17:30: nightly. Medical tablet [address] [place] [address] calcium 2020-0 Yes 3{tbl} Q.[id number] Take [address] carbonate 8-15 [id number] tablets by [facility] (IntroBridgeS) 500 17:30: 3D mouth 3 Medi benjy mg chewable 21 (three) Cente r tablet times daily. furosemide 2020-0 Yes 20mg QD Take [address] (LASIX) 20 8-15 by mouth [facility] MG tablet 17:30: daily. [facility] [address] lovastatin 2020-0 Yes 10mg QD Take [address] (MEVACOR) 8-15 by mouth [facility] 10 MG 17:30: nightly. Medical tablet [address] [place] [address] calcium 2020-0 Yes 3{tbl} Q.[id number] Take [address] carbonate 8-15 [id number] tablets by [facility] (IntroBridgeS) 500 17:30: 3D mouth 3 Medi benjy mg chewable 21 (three) Cente r tablet times daily. furosemide 2020-0 Yes 20mg QD Take [address] (LASIX) 20 8-15 by mouth [facility] MG tablet 17:30: daily. Medica [address] lovastatin 2020-0 Yes 10mg QD Take [address] (MEVACOR) 8-15 by mouth [facility] 10 MG 17:30: nightly. Medical tablet [address] [place] calcium 2020-0 Yes 3{tbl} Q.[id number] Take [address] carbonate 8-15 [id number] tablets by [facility] (TUMS) 500 17:30: 3D mouth 3 Medi benjy mg chewable 21 (three) Cente r tablet times daily. furosemide 2020-0 Yes 20mg QD Take [address] (LASIX) 20 8-15 by mouth [facility] MG tablet 17:30: daily. [address] lovastatin 2020-0 Yes 10mg QD Take [address] (MEVACOR) 8-15 by mouth [facility] 10 MG 17:30: nightly. Medical tablet [address] [place] calcium 2020-0 Yes 3{tbl} Q.[id number] Take [address] carbonate 8-15 [id number] tablets by [facility] (TUMS) 500 17:30: 3D mouth 3 Medi benjy mg chewable 21 (three) Cente r tablet times daily. furosemide 2020-0 Yes 20mg QD Take [address] (LASIX) 20 8-15 by mouth [facility] MG tablet 17:30: daily. [address] lovastatin 2020-0 Yes 10mg QD Take [address] (MEVACOR) 8-15 by mouth [facility] 10 MG 17:30: nightly. Medical tablet [address] [place] calcium 2020-0 Yes 3{tbl} Q.[id number] Take [address] carbonate 8-15 [id number] tablets by [facility] (TUMS) 500 17:30: 3D mouth 3 Medi benjy mg chewable 21 (three) Cente r tablet times daily. furosemide 2020-0 Yes 20mg QD Take [address] (LASIX) 20 8-15 by mouth [facility] MG tablet 17:30: daily. [address] cyclobenzap 2020-0 Yes 1{tbl} QD Take [address] [facility] 8-04 tablet by [facility] (FLEXERIL) 00:00: mouth Medica l 10 MG 00 daily. [place] tablet cyclobenzap 2020-0 Yes 1{tbl} QD Take [...] by [facility] (ERGOCALCIF 00:00: mouth once Medical JYAESH) ,250 00 a week. Cente r mcg [...] 10 mg 5-15 tablet 00:00: 00 atorvastati 0 Yes 1{tbl} QD Take [address] [facility] (LIPITOR) 5-15 tablet by Sheng es 10 MG 00:00: mouth Medical tablet 00 daily. [place] atorvastati 0 Yes 1{tbl} QD Take [address] [facility] (LIPITOR) 5-15 tablet by Sheng es 10 MG 00:00: mouth Medical tablet 00 daily. [place] atorvastati 0 Yes 1{tbl} QD Take [address] [facility] (LIPITOR) 5-15 tablet by Sheng es 10 MG 00:00: mouth Medical tablet 00 daily. [place] atorvastati 0 Yes 1{tbl} QD Take [address] [facility] (LIPITOR) 5-15 tablet by Sheng es 10 MG 00:00: mouth Medical tablet 00 daily. [place] atorvastati 0 Yes 1{tbl} QD Take [address] [facility] [address] [facility] (LIPITOR) 5-15 tablet by [facility] 10 MG 00:00: mouth Medical tablet 00 daily. [place] atorvastati 0 Yes 1{tbl} QD Take [address] [facility] (LIPITOR) 5-15 tablet by [facility] 10 MG 00:00: mouth Medical tablet 00 daily. [place] atorvastati 0 Yes 1{tbl} QD Take [address] [facility] (LIPITOR) 5-15 tablet by [facility] 10 MG 00:00: mouth Medical tablet 00 daily. [place] atorvastati 0 Yes 1{tbl} QD Take [address] [facility] (LIPITOR) 5-15 tablet by [facility] 10 MG 00:00: mouth Medical tablet 00 daily. [place] atorvastati 2020-0 Yes 1{tbl} QD Take [address] [facility] (LIPITOR) 5-15 tablet by [facility] 10 MG 00:00: mouth Medical tablet 00 daily. [place] atorvastati 2019-0 Yes 1{tbl} QD Take [address] [facility] (LIPITOR) 5-15 tablet by [facility] 10 MG 00:00: mouth Medical tablet 00 daily. [place] atorvastati 2019-0 Yes 1{tbl} QD Take [address] [facility] (LIPITOR) 5-15 tablet by [facility] 10 MG 00:00: mouth Medical tablet 00 daily. [place] atorvastati 2019-0 Yes 1{tbl} QD Take [address] [facility] (LIPITOR) 5-15 tablet by [facility] 10 MG 00:00: mouth Medical tablet 00 daily. [place] atorvastati 0 Yes 1{tbl} QD Take [address] [facility] (LIPITOR) 5-15 tablet by [facility] 10 MG 00:00: mouth Medical tablet 00 daily. [place] atorvastati 0 Yes 1{tbl} QD Take [address] [facility] (LIPITOR) 5-15 tablet by [facility] 10 MG 00:00: mouth Medical tablet 00 daily. [place] atorvastati 0 Yes 1{tbl} QD Take [address] [facility] (LIPITOR) 5-15 tablet by [facility] 10 MG 00:00: mouth Medical tablet 00 daily. [place] atorvastati 2019-0 Yes 1{tbl} QD Take [address] [facility] (LIPITOR) 5-15 tablet by [facility] 10 MG 00:00: mouth Medical tablet 00 daily. [place] atorvastati 2019-0 Yes 1{tbl} QD Take [address] [facility] (LIPITOR) 5-15 tablet by [facility] 10 MG 00:00: mouth Medical tablet 00 daily. [place] atorvastati 2019-0 Yes 1{tbl} QD Take [address] [facility] (LIPITOR) 5-15 tablet by [facility] 10 MG 00:00: mouth Medical tablet 00 daily. [place] atorvastati 2019-0 Yes 1{tbl} QD Take [address] [facility] (LIPITOR) 5-15 tablet by [facility] 10 MG 00:00: mouth Medical tablet 00 daily. [place] atorvastati 2020-0 Yes 1{tbl} QD Take [address] [facility] (LIPITOR) 5-15 tablet by [facility] 10 MG 00:00: mouth Medical tablet 00 daily. [place] atorvastati 2020-0 Yes 1{tbl} QD Take [address] [facility] (LIPITOR) 5-15 tablet by [facility] 10 MG 00:00: mouth Medical tablet 00 daily. [place] atorvastati 2020-0 Yes 1{tbl} QD Take [address] [facility] (LIPITOR) 5-15 tablet by [facility] 10 MG 00:00: mouth Medical tablet 00 daily. [place] aspirin 81 2020-0 No 1mg mg 3-04 [...] 3-04 800 mg 00:00: tablet 00 atorvastati 2019-0 No 1mg n 10 mg 3-04 tablet 00:00: 00 calcium 2019-0 No 1(1,250 carbonate 3-04 mg) 500 mg 00:00: calcium 00 (1,250 mg) chewable tablet levothyroxi 2019-0 No 1mcg ne 200 mcg 3-04 tablet 00:00: 00 levothyroxi 2019-0 No 1mcg ne 100 mcg 3-04 tablet 00:00: 00 amLODIPine 2020-0 Yes 10mg QD Take [address] [facility] (NORVASC[facility] MG 00:00: daily . Medical tablet 00 [place] amLODIPine 2020-0 Yes 10mg QD Take [address] [facility] (NORVASC) 1-16 [facility] 10 MG 00:00: daily . Medical tablet 00 [place] amLODIPine 2020-0 Yes 10mg QD Take [address] (NORVASC) 1-16 [facility] 10 MG 00:00: daily . Medical tablet 00 [place] amLODIPine 2020-0 Yes 10mg QD Take [address] (NORVASC) 1-16 [facility] 10 MG 00:00: daily . Medical tablet 00 [place] amLODIPine 2020-0 Yes 10mg QD Take [address] (NORVASC) 1-16 [facility] 10 MG 00:00: daily . Medical tablet 00 [place] amLODIPine 2020-0 Yes 10mg QD Take [address] (NORVASC) 1-16 [facility] 10 MG 00:00: daily . Medical tablet 00 [place] amLODIPine 2020-0 Yes 10mg QD Take [address] (NORVASC) 1-16 [facility] 10 MG 00:00: daily . Medical tablet 00 [place] amLODIPine 2020-0 Yes 10mg QD Take [address] (NORVASC) 1-16 [facility] 10 MG 00:00: daily . Medical tablet 00 [place] amLODIPine 2020-0 Yes 10mg QD Take [address] (NORVASC) 1-16 [facility] 10 MG 00:00: daily . Medical tablet 00 [place] amLODIPine 2020-0 Yes 10mg QD Take [address] (NORVASC) 1-16 [facility] 10 MG 00:00: daily . Medical tablet 00 [place] amLODIPine 2020-0 Yes 10mg QD Take [address] (NORVASC) 1-16 [facility] 10 MG 00:00: daily . Medical tablet 00 [place] amLODIPine 2020-0 Yes 10mg QD Take [address] (NORVASC) 1-16 [facility] 10 MG 00:00: daily . Medical tablet 00 [place] amLODIPine 2020-0 Yes 10mg QD Take [address] (NORVASC) 1-16 [facility] 10 MG 00:00: daily . Medical tablet 00 [place] amLODIPine 2020-0 Yes 10mg QD Take [address] (NORVASC) 1-16 [facility] 10 MG 00:00: daily . Medical tablet 00 [place] amLODIPine 2020-0 Yes 10mg QD Take [address] (NORVASC) 1-16 [facility] 10 MG 00:00: daily . Medical tablet 00 [place] amLODIPine 2020-0 Yes 10mg QD Take [address] (NORVASC) 1-16 [facility] 10 MG 00:00: daily . Medical tablet 00 [place] amLODIPine 2020-0 Yes 10mg QD Take [address] (NORVASC) 1-16 [facility] 10 MG 00:00: daily . Medical tablet 00 [place] amLODIPine 2020-0 Yes 10mg QD Take [address] (NORVASC) 1-16 [facility] 10 MG 00:00: daily . Medical tablet 00 [place] amLODIPine 2020-0 Yes 10mg QD Take [address] (NORVASC) 1-16 [facility] 10 MG 00:00: daily . Medical tablet 00 [place] amLODIPine 2020-0 Yes 10mg QD Take [address] (NORVASC) 1-16 [facility] 10 MG 00:00: daily . Medical tablet 00 [place] amLODIPine 2020-0 Yes 10mg QD Take [address] (NORVASC) 1-16 [facility] 10 MG 00:00: daily . Medical tablet 00 [place] amLODIPine 2020-0 Yes 10mg QD Take [address] (NORVASC) 1-16 [facility] 10 MG 00:00: daily . Medical tablet 00 [place] aspirin 81 2019-0 No 1mg mg 1-10 [...] tablet 00:00: 00 sevelamer 2020-0 Yes 800mg Q.[id number] [address] [facility] ([facility]) 1-10 [id number] (three) [facility] 800 mg 00:00: 3D times Medical tablet 00 daily . [place] UNITHROID 2020-0 Yes 125ug QD Take [address] [facility] 125 mcg 1-10 [facility]cg [facility] tablet 00:00: mouth Medical 00 nightly . [place] sevelamer 2020-0 Yes 800mg Q.[id number] [address] [facility] ([place]) 1-10 [id number] (three) [facility] 800 mg 00:00: 3D times Medical tablet 00 daily . [place] UNITHROID 2020-0 Yes 125ug QD Take [address] [facility] [address] 125 mcg 1-10 mcg [facility] tablet 00:00: mouth Medical 00 nightly . [place] sevelamer 2020-0 Yes 800mg Q.[id number] [address] [facility] ([place]) 1-10 [id number] (three) [facility] 800 mg 00:00: 3D times Medical tablet 00 daily . [place] UNITHROID 2020-0 Yes 125ug QD Take [address] [facility] [address] 125 mcg 1-10 [facility]cg [facility] tablet 00:00: mouth Medical 00 nightly . [place] sevelamer 2020-0 Yes 800mg Q.[id number] [address] [facility] ([place]) 1-10 [id number] (three) [facility] 800 mg 00:00: 3D times Medical tablet 00 daily . [place] UNITHROID 2020-0 Yes 125ug QD Take [address] [facility] [address] 125 mcg 1-10 mcg [facility] tablet 00:00: mouth Medical 00 nightly . [place] sevelamer 2020-0 Yes 800mg Q.[id number] [address] [facility] ([place]) 1-10 [id number] (three) [facility] 800 mg 00:00: 3D times Medical tablet 00 daily . [place] UNITHROID 2020-0 Yes 125ug QD Take [address] [facility] [address] 125 mcg 1-10 mcg [facility] tablet 00:00: mouth Medical 00 nightly . [place] sevelamer 2020-0 Yes 800mg Q.[id number] [address] [facility] ([place]) 1-10 [id number] (three) [facility] 800 mg 00:00: 3D times Medical tablet 00 daily . [place] UNITHROID 2020-0 Yes 125ug QD Take [address] [facility] [address] 125 mcg 1-10 mcg [facility] tablet 00:00: mouth Medical 00 nightly . [place] sevelamer 2020-0 Yes 800mg Q.[id number] [address] [facility] ([place]) 1-10 [id number] (three) [facility] 800 mg 00:00: 3D times Medical tablet 00 daily . [place] UNITHROID 2020-0 Yes 125ug QD Take [address] [facility] [address] 125 mcg 1-10 mcg [facility] tablet 00:00: mouth Medical 00 nightly . [place] sevelamer 2020-0 Yes 800mg Q.[id number] [address] [facility] ([place]) 1-10 [id number] (three) [facility] 800 mg 00:00: 3D times Medical tablet 00 daily . [place] UNITHROID 2020-0 Yes 125ug QD Take [address] [facility] [address] 125 mcg 1-10 mcg [facility] tablet 00:00: mouth Medical 00 nightly . [place] sevelamer 2020-0 Yes 800mg Q.[id number] [address] [facility] ([place]) 1-10 [id number] (three) [facility] 800 mg 00:00: 3D times Medical tablet 00 daily . [place] UNITHROID 2020-0 Yes 125ug QD Take [address] [facility] [address] 125 mcg 1-10 mcg [facility] tablet 00:00: mouth Medical 00 nightly . [place] sevelamer 2020-0 Yes 800mg Q.[id number] [address] [facility] ([place]) 1-10 [id number] (three) [facility] 800 mg 00:00: 3D times Medical tablet 00 daily . [place] UNITHROID 2020-0 Yes 125ug QD Take [address] [facility] [address] 125 mcg 1-10 [facility]cg [facility] tablet 00:00: mouth Medical 00 nightly . [place] sevelamer 2020-0 Yes 800mg Q.[id number] [address] [facility] ([place]) 1-10 [id number] (three) [facility] 800 mg 00:00: 3D times Medical tablet 00 daily . [place] UNITHROID 2020-0 Yes 125ug QD Take [address] [facility] [address] 125 mcg 1-10 mcg [facility] tablet 00:00: mouth Medical 00 nightly . [place] sevelamer 2020-0 Yes 800mg Q.[id number] [address] [facility] ([place]) 1-10 [id number] (three) [facility] 800 mg 00:00: 3D times Medical tablet 00 daily . [place] UNITHROID 2020-0 Yes 125ug QD Take [address] [facility] [address] 125 mcg 1-10 mcg [facility] tablet 00:00: mouth Medical 00 nightly . [place] sevelamer 2020-0 Yes 800mg Q.[id number] [address] [facility] ([place]) 1-10 [id number] (three) [facility] 800 mg 00:00: 3D times Medical tablet 00 daily . [place] UNITHROID 2020-0 Yes 125ug QD Take [address] [facility] [address] 125 mcg 1-10 mcg [facility] tablet 00:00: mouth Medical 00 nightly . [place] sevelamer 2020-0 Yes 800mg Q.[id number] [address] [facility] ([place]) 1-10 [id number] (three) [facility] 800 mg 00:00: 3D times Medical tablet 00 daily . [place] UNITHROID 2020-0 Yes 125ug QD Take [address] [facility] 125 mcg 1-10 mcg [facility] tablet 00:00: mouth Medical 00 nightly . [place] sevelamer 2020-0 Yes 800mg Q.[id number] [address] [facility] ([place]) 1-10 [id number] (three) [facility] 800 mg 00:00: 3D times Medical tablet 00 daily . [place] UNITHROID 2020-0 Yes 125ug QD Take [address] [facility] 125 mcg 1-10 mcg [facility] tablet 00:00: mouth Medical 00 nightly . [place] sevelamer 2020-0 Yes 800mg Q.[id number] [address] [facility] ([place]) 1-10 [id number] (three) [facility] 800 mg 00:00: 3D times Medical tablet 00 daily . [place] UNITHROID 2020-0 Yes 125ug QD Take [address] [facility] [address] 125 mcg 1-10 mcg [facility] tablet 00:00: mouth Medical 00 nightly . [place] sevelamer 2020-0 Yes 800mg Q.[id number] [address] [facility] ([place]) 1-10 [id number] (three) [facility] 800 mg 00:00: 3D times Medical tablet 00 daily . [place] UNITHROID 2020-0 Yes 125ug QD Take [address] 125 mcg 1-10 mcg [facility] tablet 00:00: mouth Medical 00 nightly . [place] sevelamer 2020-0 Yes 800mg Q.[id number] [address] [facility] ([place]) 1-10 [id number] (three) [facility] 800 mg 00:00: 3D times Medical tablet 00 daily . [place] UNITHROID 2020-0 Yes 125ug QD Take [address] [facility] 125 mcg 1-10 mcg [facility] tablet 00:00: mouth Medical 00 nightly . [place] sevelamer 2020-0 Yes 800mg Q.[id number] [address] [facility] ([place]) 1-10 [id number] (three) [facility] 800 mg 00:00: 3D times Medical tablet 00 daily . [place] UNITHROID 2020-0 Yes 125ug QD Take [address] 125 mcg 1-10 mcg [facility] tablet 00:00: mouth Medical 00 nightly . [place] sevelamer 2020-0 Yes 800mg Q.[id number] [address] [facility] ([place]) 1-10 [id number] (three) [facility] 800 mg 00:00: 3D times Medical tablet 00 daily . [place] UNITHROID 2020-0 Yes 125ug QD Take [address] 125 mcg 1-10 mcg [facility] tablet 00:00: mouth Medical 00 nightly . [place] sevelamer 2020-0 Yes 800mg Q.[id number] [address] [facility] ([place]) 1-10 [id number] (three) [facility] 800 mg 00:00: 3D times Medical tablet 00 daily . [place] UNITHROID 2020-0 Yes 125ug QD Take [address] 125 mcg 1-10 mcg [facility] tablet 00:00: mouth Medical 00 nightly . [place] sevelamer 2020-0 Yes 800mg Q.[id number] [address] [facility] ([place]) 1-10 [id number] (three) [facility] 800 mg 00:00: 3D times Medical tablet 00 daily . [place] UNITHROID 2020-0 Yes 125ug QD Take [address] 125 mcg 1-10 mcg [facility] tablet 00:00: mouth Medical 00 nightly . [place] amlodipine 2020-0 No 1mg 10 mg 1-08 [...] 1-19 tablet,girma 00:00: yed release 00 atorvastati 2018-1 No 1mg n 10 mg 1-19 tablet [...] 10 mg 1-19 tablet 00:00: 00 calcium 2018-05 No 1(1,250 carbonate 1-19 mg) 500 mg 00:00: calcium 00 (1,250 mg) chewable tablet loratadine 2018-05 No 1mg 10 mg 1-12 tablet 00:00: 00 benzonatate 2018-05 No 1mg 200 mg 1-12 capsule 00:00: 00 loratadine 2018-05 No 1mg 10 mg 1-12 tablet 00:00: 00 loratadine 2018-05 No 1mg 10 mg 1-12 tablet 00:00: 00 benzonatate 2018-05 No 1mg 200 mg 1-12 capsule 00:00: 00 benzonatate 2018-05 No 1mg 200 [...] 1-12 capsule 00:00: 00 gabapentin 2018- Yes [id number] 100mg Take 1 [facility] 100 [facility] 0-22 capsule by [facility] capsule 00:00: mouth 3 [place] 00 (three) Medical times Branch daily. gabapentin 2018-05 Yes [id number] 100mg Take 1 [facility] 100 mg 0-22 capsule by [facility] capsule 00:00: mouth 3 [place] 00 (three) Medical times Branch daily. gabapentin 2018-05 Yes [id number] 100mg Take 1 [facility] 100 mg 0-22 capsule by [facility] capsule 00:00: mouth 3 [place] 00 (three) Medical times Branch daily. aspirin 81 2018-05 No 1mg mg 0-01 tablet,girma 00:00: yed release 00 amlodipine 2018-05 No 1mg 10 mg 0-01 tablet 00:00: 00 calcium 2018-05 No 1(1,250 carbonate 0-01 mg) 500 mg 00:00: calcium 00 (1,250 mg) chewable tablet aspirin 2018-05 No 1mg mg 0-01 tablet,girma 00:00: [...] mg tablet 0-01 00:00: 00 aspirin 81 2018 No 1mg mg 0-01 tablet,girma 00:00: yed [...] mcg 0-01 tablet 00:00: 00 amLODIPine Yes [id number] 10mg Take 1 [facility] 10 mg 9-16 tablet by [facility] of tablet 00:00: mouth [place] 00 daily. Medical Branch aspirin 81 Yes [id number] 81mg Take 1 [facility] mg chewable 9-16 tablet by [facility] of tablet 00:00: mouth [place] 00 daily. Medical Branch atorvastati Yes [id number] 40mg Take 2 [facility] n 20 mg 9-16 tablets by [facility] of tablet 00:00: mouth at [place] 00 bedtime. Medical Branch calcium Yes [id number] 1000mg Take 2 [facility] nivers carbonate 9-16 tablets by [facility]y of (CALCIUM 00:00: mouth 3 [place] 500) 500 mg 00 (three) Medic al calcium times Branch (1,250 mg) daily with tablet meals. meclizine Yes [id number] 25mg Take 2 [facility] nivers 12.5 mg 9-16 tablets by [facility] of tablet 00:00: mouth 3 [place] 00 (three) Medical times Branch daily as needed for Dizziness. Para mareo (for dizziness) sevelamer Yes [id number] 800mg Take 1 [facility] 800 mg 9-16 tablet by [facility] of tablet 00:00: mouth 3 [place] 00 (three) Medical times Branch daily with meals. amLODIPine Yes [id number] 10mg Take 1 [facility] 10 mg 9-16 tablet by [facility] of tablet 00:00: mouth [place] 00 daily. Medical Branch aspirin 81 2019-0 Yes [id number] 81mg Take 1 [facility] mg chewable 9-16 tablet by [facility] of tablet 00:00: mouth [place] 00 daily. Medical Branch atorvastati 2019-0 Yes [id number] 40mg Take 2 [facility] n 20 mg 9-16 tablets by [facility] of tablet 00:00: mouth at [place] 00 bedtime. Medical Branch calcium 2019-0 Yes [id number] 1000mg Take 2 U nivers carbonate 9-16 tablets by [facility]y of (CALCIUM 00:00: mouth 3 [place] 500) 500 mg 00 (three) Medic al calcium times Branch (1,250 mg) daily with tablet meals. meclizine 2018-0 Yes [id number] 25mg Take 2 U nivers 12.5 mg 9-16 tablets by [facility] of tablet 00:00: mouth 3 [place] 00 (three) Medical times Branch daily as needed for Dizziness. Para mareo (for dizziness) sevelamer 2018-0 Yes [id number] 800mg Take 1 [facility] 800 mg 9-16 tablet by [facility] of tablet 00:00: mouth 3 [place] 00 (three) Medical times Branch daily with meals. amLODIPine 2018-0 Yes [id number] 10mg Take 1 [facility] nivers 10 mg 9-16 tablet by [facility] of tablet 00:00: mouth [place] 00 daily. Medical Branch aspirin 81 2018-0 Yes [id number] 81mg Take 1 [facility] mg chewable 9-16 tablet by [facility] of tablet 00:00: mouth [place] 00 daily. Medical Branch atorvastati 2018-0 Yes [id number] 40mg Take 2 [facility] n 20 mg 9-16 tablets by [facility] of tablet 00:00: mouth at [place] 00 bedtime. Medical Branch calcium 2018-0 Yes [id number] 1000mg Take 2 U nivers carbonate 9-16 tablets by [facility]y of (CALCIUM 00:00: mouth 3 [place] 500) 500 mg 00 (three) Medic al calcium times Branch (1,250 mg) daily with tablet meals. meclizine 2018-0 Yes [id number] 25mg Take 2 U nivers 12.5 mg 9-16 tablets by ity of tablet 00:00: mouth 3 [place] 00 (three) Medical times Branch daily as needed for Dizziness. Para mareo (for dizziness) sevelamer 2018-0 Yes [id number] 800mg Take 1 [facility] 800 mg 9-16 [...] 50 daily. l 150 mcg tablet lovastatin 2018-0 Yes 20mg QD Take 20 mg M ethodi (MEVACOR) 9-[address] 10 MG 15:20: [facility]ly[facility] l levothyroxi 2019-0 No [...] Name Roger CLEMENSID-19 2021-12-02 Completed Vaccine 00:00:00 Roger COVID-19 2021-12-02 Completed Vaccine 00:00:00 Roger COVID-19 2021-12-02 Completed Vaccine 00:00:00 Moderna [...] 2018-03-07 Completed [facility] o f Polysaccharide, 00:00:00 [place] [facility] PPSV23 (PNEUMOVAX) Branch Pneumococcal 2018-03-07 Completed University o f Polysaccharide, 00:00:00 [place] [facility] ical PPSV23 (PNEUMOVAX) Branch Pneumococcal 2018-03-07 Completed University o f Polysaccharide, 00:00:00 [place] [facility] ical PPSV23 (PNEUMOVAX) Branch Vital Signs Vital Name Observation Time Observation Value Comments Source HEIGHT 2019-11-07 00:00:00 162.6 cm WEIGHT 2019-11-07 00:00:00 76.4 kg Systolic blood 2021-12-02 19:06:00 116 mm[Hg] Univer sity of pressure [facility] [place] [facility] Diastolic blood 2021-12-02 19:06:00 68 mm[Hg] Unive rsity of pressure [facility] [place] [facility] Heart rate 2021-12-02 19:06:00 69 /min [facility] Body height 2021-12-02 19:06:00 162.6 cm [facility] Body weight 2021-12-02 19:06:00 78.019 kg [facility] BMI 2021-12-02 19:06:00 29.52 kg/m2 [facility] Oxygen saturation in 2021-12-02 19:06:00 95 /min [facility] Arterial blood by [facility] Pulse oximetry Branch HEIGHT 2019-11-07 [...] Performed REFERRAL- 2022-05-28 06:01:00 [facility] [place] [facility] REQUEST/RESPONSE Name Medical Branch [id number] 2022-04-17 00:00:00 [facility] armando coker [id number] 2022-04-08 00:00:00 Héctor coker Plan of Care Planned Activity Planned Date Details Comments Source Future Scheduled 2023-01-[address] [facility] 00:00:00 (Season Ended) [code = Medic al Center INFLUENZA VACCINE (Season Ended)] Future Scheduled 2023-01-[address] [facility] 00:00:00 (Season Ended) [code = Medic al Center INFLUENZA VACCINE (Season Ended)] Future Scheduled 2023-01-[address] [facility] 00:00:00 (Season Ended) [code = Medic al Center INFLUENZA VACCINE (Season Ended)] Future Scheduled 2023-01-[address] [facility] 00:00:00 (Season Ended) [code = Medic al Center INFLUENZA VACCINE (Season Ended)] Future Scheduled 2023-01-[address] [facility] 00:00:00 (Season Ended) [code = Medic al Center INFLUENZA VACCINE (Season Ended)] Future Scheduled 2022-08-02 [facility]:50 [code = COVID-19 VACCINE (#1)] Future Scheduled 2022-08-02 [facility] 10:59:50 [code = COLONOSCOPY SCREENING] Future Scheduled 2022-08-02 SHINGLES VACCINES (1 Met [facility] Test 10:59:50 of 2) [code = SHINGLES VACCINES (1 of 2)] Future Scheduled 2022-08-02 INFLUENZA VACCINE [facility] Test 10:59:50 [code = INFLUENZA VACCINE] Future Scheduled 2022-08-02 COVID-19 VACCINE (#[facility] 10:59:50 [code = COVID-19 VACCINE (#1)] Future Scheduled 2022-08-02 [facility]ING [facility] 10:59:50 [code = COLONOSCOPY SCREENING] Future Scheduled 2022-08-02 SHINGLES VACCINES (1 Met [facility] Test 10:59:50 of 2) [code = SHINGLES VACCINES (1 of 2)] Future Scheduled 2022-08-02 INFLUENZA VACCINE [facility] Test 10:59:50 [code = INFLUENZA VACCINE] Future Scheduled 2022-08-02 [facility] [code = COVID-19 VACCINE (#1)] Future Scheduled 2022-08-02 [facility]COPY SCREENING [facility] 10:59:50 [code = COLONOSCOPY SCREENING] Future Scheduled 2022-08-02 SHINGLES VACCINES (1 [facility] 10:59:50 of 2) [code = SHINGLES VACCINES (1 of 2)] Future Scheduled 2022-08-02 INFLUENZA VACCINE [facility] Test 10:59:50 [code = INFLUENZA VACCINE] Future Scheduled 2022-08-02 COVID[facility] 10:59:50 [code = COVID-19 VACCINE (#1)] Future Scheduled 2022-08-02 [facility] 10:59:50 [code = COLONOSCOPY SCREENING] Future Scheduled 2022-08-02 [facility]INGLES [facility]ACCINES [facility] 10:59:50 of 2) [code = SHINGLES VACCINES (1 of 2)] Future Scheduled 2022-08-02 INFLUENZA VACCINE [facility] Test 10:59:50 [code = INFLUENZA VACCINE] Future Scheduled 2022-07-[address] [facility] 00:[facility]:00 (procedure) [code = [facility] [id number]] Future Scheduled 2022-07-[address] [facility] 00:00:00 (procedure) [code = [facility] [id number]] Future Scheduled 2022-07-[address] [facility] 00:00:00 (procedure) [code = [facility] [id number]] Future Scheduled 2022-07-[address] [facility] 00:00:00 (procedure) [code = [facility] [id number]] Future Scheduled 2022-07-[address] [facility] 00:00:00 (procedure) [code = [facility] [id number]] Future Scheduled 2022-07-[address] [facility] 00:00:00 (procedure) [facility]code [facility] [id number]] Future Scheduled 2022-07-[address] [facility] 00:00:00 (procedure) [code = [facility] [id number]] Future Scheduled 2022-07-[address] [facility] 00:00:00 (procedure) [code = [facility] [id number]] Future Scheduled 2022-07-[address] [facility] 00:00:00 (procedure) [code = [facility] [id number]] Future Scheduled 2022-07-[address] [facility] 00:00:00 (procedure) [code = [facility] Center [id number]] Future Scheduled 2022-07-[address] [facility] 00:00:00 (procedure) [code = [facility] Center [id number]] Future Scheduled 2022-07-[address] [facility] 00:00:00 (procedure) [code = [facility] Center [id number]] Future Scheduled 2022-07-[address] [facility] 00:00:00 (procedure) [code = [facility] [id number]] Future Scheduled 2022-07-[address] [facility] 00:00:00 (procedure) [code = [facility] [id number]] Future Scheduled 2022-07-[address] [facility] 00:00:00 (procedure) [code = [facility] [id number]] Future Scheduled 2022-07-[address] [facility] 00:00:00 (procedure) [code = [facility] [id number]] Future Scheduled 2022-07-[address] [facility] 00:00:00 (procedure) [code = [facility] Center [id number]] Future Scheduled 2022-07-[address] [facility] 00:00:00 (procedure) [code = [facility] Center [id number]] Future Scheduled 2022-07-[address] [facility] 00:00:00 (procedure) [code = [facility] Center [id number]] Future Scheduled 2022-07-[address] [facility] 00:00:00 (procedure) [code = [facility] Center [id number]] Future Scheduled 2022-07-[address] [facility] 00:00:00 (procedure) [code = [facility] Center [id number]] Future Scheduled 2022-07-[address] [facility] 00:00:00 (procedure) [code = Medical Center [id number]] Future Scheduled 2022-06-15 COVID-19 VACCINE (#1) [facility] Test 10:12:43 [code = COVID-19 VACCINE (#1)] Future Scheduled 2022-06-15 [facility]COPY SCREENING [facility] 10:12:43 [code = COLONOSCOPY SCREENING] Future Scheduled 2022-06-15 SHINGLES VACCINES ([facility] Test 10:12:43 of 2) [code = SHINGLES VACCINES (1 of 2)] Future Scheduled 2022-06-15 INFLUENZA VACCINE [facility] Test 10:12:43 [code = INFLUENZA VACCINE] Future Scheduled 2022-06-15 COVID-19 VACCINE (#1) Me [facility] 10:12:43 [code = COVID-19 VACCINE (#1)] Future Scheduled 2022-06-15 [facility]COPY SCREENING [facility] 10:12:43 [code = COLONOSCOPY SCREENING] Future Scheduled 2022-06-15 SHINGLES VACCINES (1 [facility] 10:12:43 of 2) [code = SHINGLES VACCINES (1 of 2)] Future Scheduled 2022-06-15 INFLUENZA VACCINE [facility] 10:12:43 [code = INFLUENZA VACCINE] Future Scheduled 2022-06-15 [facility]:12[facility]43 [code = COVID-19 VACCINE (#1)] Future Scheduled 2022-06-15 COLONOSCOPY SCREENING [facility] Test 10:12:43 [code = COLONOSCOPY SCREENING] Future Scheduled 2022-06-15 SHINGLES VACCINES (1 [facility] 10:12:43 of 2) [code = SHINGLES VACCINES (1 of 2)] Future Scheduled 2022-06-15 INFLUENZA VACCINE [facility] 10:12:43 [code = INFLUENZA VACCINE] Future Scheduled 2022-05-28 COVID-19 VACCINE (#1) [facility] 09:36:27 [code = COVID-19 VACCINE (#1)] Future Scheduled 2022-05-28 [facility] 09:36:27 [code = COLONOSCOPY SCREENING] Future Scheduled 2022-05-28 SHINGLES VACCINES (1 [facility] Test 09:36:27 of 2) [code = SHINGLES VACCINES (1 of 2)] Future Scheduled 2022-05-28 INFLUENZA VACCINE [facility] 09:36:27 [code = INFLUENZA VACCINE] Future Scheduled 2022-05-28 COVID-19 VACCINE (#1) [facility] 09:36:27 [code = COVID-19 VACCINE (#1)] Future Scheduled 2022-05-28 [facility] SCREENING [facility] 09:36:27 [code = COLONOSCOPY SCREENING] Future Scheduled 2022-05-28 SHINGLES VACCINES (1 [facility] 09:36:27 of 2) [code = SHINGLES VACCINES (1 of 2)] Future Scheduled 2022-05-28 INFLUENZA VACCINE [facility] 09:36:27 [code = INFLUENZA VACCINE] Future Scheduled 2022-05-11 COVID-19 VACCINE (#1) [facility] 00:38:04 [code = COVID-19 VACCINE (#1)] Future Scheduled 2022-05-11 [facility] 00:38:04 [code = COLONOSCOPY SCREENING] Future Scheduled 2022-05-11 SHINGLES VACCINES (1 [facility] 00:38:04 of 2) [code = SHINGLES VACCINES (1 of 2)] Future Scheduled 2022-05-11 INFLUENZA VACCINE [facility] 00:38:04 [code = INFLUENZA VACCINE] Future Scheduled 2022-05-11 COVID-19 VACCINE (#1) [facility] 00:38:04 [code = COVID-19 VACCINE (#1)] Future Scheduled 2022-05-11 [facility] 00:38:04 [code = COLONOSCOPY SCREENING] Future Scheduled 2022-05-11 SHINGLES VACCINES (1 [facility] 00:38:04 of 2) [code = [...] (12+)] Future Scheduled 2022-04-23 COVID-19 VACCINE (#1) [facility] Test 11:12:56 [code = COVID-19 VACCINE (#1)] Future Scheduled 2022-04-23 COLONOSCOPY SCREENING [facility] Test 11:12:56 [code = COLONOSCOPY SCREENING] Future Scheduled 2022-04-23 [facility] 11:12:56 of 2) [code = SHINGLES VACCINES (1 of 2)] Future Scheduled 2022-04-23 INFLUENZA VACCINE [facility] 11:12:56 [code = INFLUENZA VACCINE] Future Scheduled 2022-04-20 COVID-19 VACCINE (#1) [facility] Test 13:44:31 [code = COVID-19 VACCINE (#1)] Future Scheduled 2022-04-20 [facility]COPY SCREENING [facility] 13:44:31 [code = COLONOSCOPY SCREENING] Future Scheduled 2022-04-20 SHINGLES VACCINES (1 [facility] 13:44:31 of 2) [code = SHINGLES VACCINES (1 of 2)] Future Scheduled 2022-04-20 INFLUENZA VACCINE [facility] 13:44:31 [code = INFLUENZA VACCINE] Future Scheduled 2022-04-20 COVID-19 VACCINE (#1) [facility] 13:44:31 [code = COVID-19 VACCINE (#1)] Future Scheduled 2022-04-20 [facility]CREENING [facility] 13:44:31 [code = COLONOSCOPY SCREENING] Future Scheduled 2022-04-20 SHINGLES VACCINES (1 [facility] Test 13:44:31 of 2) [code = SHINGLES VACCINES (1 of 2)] Future Scheduled 2022-04-20 INFLUENZA VACCINE [facility] 13:44:31 [code = INFLUENZA VACCINE] Future Scheduled 2022-04-20 COVID-19 VACCINE (#1) [facility] 13:44:31 [code = COVID-19 VACCINE (#1)] Future Scheduled 2022-04-20 COLONOSCOPY SCREENING [facility] Test 13:44:31 [code = COLONOSCOPY SCREENING] Future Scheduled 2022-04-20 SHINGLES VACCINES (1 [facility] 13:44:31 of 2) [code = SHINGLES VACCINES (1 of 2)] Future Scheduled 2022-04-20 INFLUENZA VACCINE [facility] 13:44:31 [code = INFLUENZA VACCINE] Future Scheduled 2022-04-20 COVID-19 VACCINE (#1) [facility] 13:44:31 [code = COVID-19 VACCINE (#1)] Future Scheduled 2022-04-20 COLONOSCOPY SCREENING [facility] Test 13:44:31 [code = COLONOSCOPY SCREENING] Future Scheduled 2022-04-20 SHINGLES VACCINES (1 [facility] 13:44:31 of 2) [code = SHINGLES VACCINES (1 of 2)] Future Scheduled 2022-04-20 INFLUENZA VACCINE [facility] 13:44:31 [code = INFLUENZA VACCINE] Future Scheduled 2022-03-04 HEPATITIS B VACCINES Met [facility] Test 13:56:11 (1 of 3 - 3-dose series) [code = HEPATITIS B VACCINES (1 of 3 - 3-dose series)] Future Scheduled 2022-03-04 COVID-19 VACCINE (#1) [facility] Test 13:56:11 [code = COVID-19 VACCINE (#1)] Future Scheduled 2022-03-04 COLONOSCOPY SCREENING [facility] Test 13:56:11 [code = COLONOSCOPY SCREENING] Future Scheduled 2022-03-04 SHINGLES VACCINES (1 Met [facility] Test 13:56:11 of 2) [code = SHINGLES VACCINES (1 of 2)] Future Scheduled 2022-03-04 INFLUENZA VACCINE Method [facility] Test 13:56:11 [code = INFLUENZA VACCINE] Future Scheduled 2022-03-04 HEPATITIS B VACCINES Met [facility] Test 13:56:11 (1 of 3 - 3-dose series) [code = HEPATITIS B VACCINES (1 of 3 - 3-dose series)] Future Scheduled 2022-03-04 COVID-19 VACCINE (#1) [facility] Test 13:56:11 [code = COVID-19 VACCINE (#1)] Future Scheduled 2022-03-04 COLONOSCOPY SCREENING [facility] Test 13:56:11 [code = COLONOSCOPY SCREENING] Future Scheduled 2022-03-04 SHINGLES VACCINES (1 Met [facility] Test 13:56:11 of 2) [code = SHINGLES VACCINES (1 of 2)] Future Scheduled 2022-03-04 INFLUENZA VACCINE Method [facility] Test 13:56:11 [code = INFLUENZA VACCINE] Future Scheduled 2022-03-04 HEPATITIS B VACCINES Met [facility] Test 13:56:11 (1 of 3 - 3-dose series) [code = HEPATITIS B VACCINES (1 of 3 - 3-dose series)] Future Scheduled 2022-03-04 COVID-19 VACCINE (#1) [facility] Test 13:56:11 [code = COVID-19 VACCINE (#1)] Future Scheduled 2022-03-04 COLONOSCOPY SCREENING [facility] Test 13:56:11 [code = COLONOSCOPY SCREENING] Future Scheduled 2022-03-04 SHINGLES VACCINES (1 Met [facility] Test 13:56:11 of 2) [code = SHINGLES VACCINES (1 of 2)] Future Scheduled 2022-03-04 INFLUENZA VACCINE Method [facility] Test 13:56:11 [code = INFLUENZA VACCINE] Future Scheduled 2022-02-08 HEPATITIS B VACCINES Met [facility] Test 14:31:50 (1 of 3 - 3-dose series) [code = HEPATITIS B VACCINES (1 of 3 - 3-dose series)] Future Scheduled 2022-02-08 COVID-19 VACCINE (#1) [facility] Test 14:31:50 [code = COVID-19 VACCINE (#1)] Future Scheduled 2022-02-08 COLONOSCOPY SCREENING [facility] Test 14:31:50 [code = COLONOSCOPY SCREENING] Future Scheduled 2022-02-08 SHINGLES VACCINES (1 Met [facility] Test 14:31:50 of 2) [code = SHINGLES VACCINES (1 of 2)] Future Scheduled 2022-02-08 INFLUENZA VACCINE Method [facility] Test 14:31:50 [code = INFLUENZA VACCINE] Future Scheduled 2022-01-03 HEPATITIS B VACCINES Met [facility] Test 04:21:26 (1 of 3 - 3-dose series) [code = HEPATITIS B VACCINES (1 of 3 - 3-dose series)] Future Scheduled 2022-01-03 COVID-19 VACCINE (#1) [facility] Test 04:21:26 [code = COVID-19 VACCINE (#1)] Future Scheduled 2022-01-03 Pneumococcal Vaccine: [facility] Test 04:21:26 Pediatrics (0 to 5 Years) and At-Risk Patients (6 to 64 Years) (1 - PCV) [code = Pneumococcal Vaccine: Pediatrics (0 to 5 Years) and At-Risk Patients (6 to 64 Years) (1 - PCV)] Future Scheduled 2022-01-03 Hepatitis C screening [facility] Test 04:21:26 (procedure) [code = [id number]] Future Scheduled 2022-01-03 SHINGLES VACCINES (1 Met [facility] Test 04:21:26 of 2) [code = SHINGLES VACCINES (1 of 2)] Future Scheduled 2022-01-03 COLONOSCOPY SCREENING [facility] Test 04:21:26 [code = COLONOSCOPY SCREENING] Future Scheduled 2022-01-03 INFLUENZA VACCINE [facility] 04:21:26 [code = INFLUENZA VACCINE] [...] Future Scheduled 2021-12-27 HEPATITIS B VACCINES Met [facility] Test 10:00:17 (1 of 3 - 3-dose series) [code = HEPATITIS B VACCINES (1 of 3 - 3-dose series)] Future Scheduled 2021-12-27 COVID-19 VACCINE (#1) [facility] Test 10:00:17 [code = COVID-19 VACCINE (#1)] Future Scheduled 2021-12-27 Pneumococcal Vaccine: [facility] Test 10:00:17 Pediatrics (0 to 5 Years) and At-Risk Patients (6 to 64 Years) (1 - PCV) [code = Pneumococcal Vaccine: Pediatrics (0 to 5 Years) and At-Risk Patients (6 to 64 Years) (1 - PCV)] Future Scheduled 2021-12-27 Hepatitis C screening [facility] Test 10:00:17 (procedure) [code = [id number]] Future Scheduled 2021-12-27 SHINGLES VACCINES (1 Met [facility] Test 10:00:17 of 2) [code = SHINGLES VACCINES (1 of 2)] Future Scheduled 2021-12-27 COLONOSCOPY SCREENING [facility] Test 10:00:17 [code = COLONOSCOPY SCREENING] Future Scheduled 2021-12-27 INFLUENZA VACCINE [facility] Test 10:00:17 [code = INFLUENZA VACCINE] [...] 00:00:00 measurement [facility] (procedure) [code = 25826615] Future Scheduled 2020-01-[address] [facility] (procedure) [code = 83523637] Future Scheduled 2020-01-[address] [facility] 00[facility] (procedure) [code = 33276136] Future Scheduled 2020-01-[address] [facility] 00[facility] (procedure) [code = 80561967] Future Scheduled 2020-01-[address] [facility] 00:[facility]:00 [facility] (procedure) [code = 93200381] Future Scheduled 2020-01-[address] [facility] 00:[facility] (procedure) [code = 78644214] Future Scheduled 2020-01-[address] [facility] 00:[facility]:00 [facility] (procedure) [code = 81601971] Future Scheduled 2020-01-[address] [facility] 00:[facility]:00 [facility] (procedure) [code = 16291813] Future Scheduled 2020-01-[address] [facility] 00:[facility]:00 [facility] (procedure) [code = 04577900] Future Scheduled 2020-01-[address] [facility] 00:[facility]:00 [facility] (procedure) [code = 87746760] Future Scheduled 2020-01-[address] [facility] 00:[facility]:00 [facility] (procedure) [code = 49453890] Future Scheduled 2020-01-[address] [facility] 00:00:00 [facility] (procedure) [code = 30780772] Future Scheduled 2020-01-[address] [facility] 00:00:00 [facility] (procedure) [code = 31541386] Future Scheduled 2020-01-[address] [facility] 00:00:00 [facility] (procedure) [code = 54008863] Future Scheduled 2020-01-[address] [facility] 00:[facility]:00 [facility] (procedure) [code = 90693588] Future Scheduled 2020-01-[address] [facility] 00:00:00 [facility] (procedure) [code = 61282027] Future Scheduled 2020-01-[address] [facility] 00:00:00 [facility] (procedure) [code = 56645586] Future Scheduled 2020-01-[address] [facility] 00:00:00 [facility] (procedure) [code = 57462767] Future Scheduled 2020-01-[address] [facility] 00:00:00 [facility] (procedure) [code = 98423494] Future Scheduled 2020-01-[address] [facility] 00:00:00 [facility] (procedure) [code = 52193623] Future Scheduled 2020-01-[address] [facility] 00:00:00 [facility] (procedure) [code = 26184447] Future Scheduled 2020-01-[address] [facility] 00:[facility] (procedure) [code = 99038612] Future Scheduled 2019-11-[address] [...] 00:00:00 examination Medical Center (regime/therapy) [code = 755741733] Future Scheduled 1975 Urine screening for [facility] Test 00:00:00 protein (procedure) Medical Center [code = 961507944] Future Scheduled 1975 DIABETIC EYE EXAM [facility] Test 00:00:00 [code = DIABETIC EYE Medical Center EXAM] Future Scheduled [address] [facility] 00:[facility] examination [facility] Center (regime/therapy) [code = 334801151] Future Scheduled 1975 Urine screening for [facility] Test 00:00:00 protein (procedure) Medical Center [code = 698010557] Future Scheduled [address] DIABETIC EYE EXAM [facility] Test 00:00:00 [code = DIABETIC EYE Medical Center EXAM] Future Scheduled [address] [facility] 00:00:00 examination [facility] (regime/therapy) [code = 353333984] Future Scheduled 1975 Urine screening for [facility] Test 00:00:00 protein (procedure) Medical Center [code = 852653035] Future Scheduled [address] DIABETIC EYE EXAM [facility] 00:00:00 [code = DIABETIC EYE Medical Center EXAM] Future Scheduled [address] [facility] 00:00:00 examination [facility] (regime/therapy) [code = 173471135] Future Scheduled 1975 Urine screening for [facility] 00:00:00 protein (procedure) Medical Center [code = 797815522] Future Scheduled [address] DIABETIC EYE EXAM [facility] 00:00:00 [code = DIABETIC EYE Medical [facility] EXAM] Future Scheduled [address] [facility] 00:00:00 examination [facility] (regime/therapy) [code = 589192590] Future Scheduled 1975 Urine screening for [facility] 00:00:00 protein (procedure) Medical Center [code = 244049487] Future Scheduled [address] DIABETIC EYE EXAM [facility] 00:00:00 [code = DIABETIC EYE Medical [facility] EXAM] Future Scheduled [address] [facility] 00:00:00 examination [facility] (regime/therapy) [code = 169719703] Future Scheduled 1975 Urine screening for [facility] 00:00:00 protein (procedure) Medical Center [code = 926525516] Future Scheduled [address] DIAB[address] EYE EXAM [facility] 00:00:00 [code = DIABETIC EYE Medical [facility] EXAM] Future Scheduled [address] [facility] 00:00:00 examination [facility] (regime/therapy) [code = 285439155] Future Scheduled 1975 Urine screening for [facility] 00:00:00 protein (procedure) Medical Center [code = 381134419] Future Scheduled [address] DIABETIC EYE EXAM [facility] 00:00:00 [code = DIABETIC EYE Medical [facility] EXAM] Future Scheduled [address] [facility] 00:00:00 examination [facility] (regime/therapy) [code = 780707995] Future Scheduled 1975 Urine screening for [facility] 00:00:00 protein (procedure) Medical Center [code = 309549334] Future Scheduled [address] DIABETIC EYE EXAM [facility] 00:00:00 [code = DIABETIC EYE Medical [facility] EXAM] Future Scheduled [address] [facility] 00:00:00 examination [facility] (regime/therapy) [code = 023266986] Future Scheduled 1975 Urine screening for [facility] 00:00:00 protein (procedure) Medical Center [code = 714590694] Future Scheduled [address] DIABET[address] EYE EXAM [facility] 00:00:00 [code = DIABETIC EYE Medical [facility] EXAM] Future Scheduled [address] [facility] 00:00:00 examination [facility] (regime/therapy) [code = 212788628] Future Scheduled 1975 Urine screening for [facility] 00:00:00 protein (procedure) Medical Center [code = 067473537] Future Scheduled [address] DIABET[address] EYE EXAM [facility] 00:00:00 [code = DIABETIC EYE Medical Center EXAM] Future Scheduled [address] EYE EXAM [facility] 00:00:00 [code = DIABETIC EYE Medical [facility] EXAM] Future Scheduled [address] [facility] 00:00:00 examination [facility] Center (regime/therapy) [code = 241661461] Future Scheduled 1975 Urine screening for [facility] 00:00:00 protein (procedure) Medical Center [code = 120876250] Future Scheduled [address] [facility] 00:00:00 examination [facility] (regime/therapy) [code = 050457570] Future Scheduled 1975 Urine screening for [facility] 00:00:00 protein (procedure) Medical Center [code = 607516306] Future Scheduled [address] DIAB[address] EYE EXAM [facility] 00:00:00 [code = DIABETIC EYE Medical [facility] EXAM] Future Scheduled [address] [facility] 00:00:00 examination [facility] (regime/therapy) [code = 162500635] Future Scheduled 1975 Urine screening for [facility] 00:00:00 protein (procedure) Medical Center [code = 584148253] Future Scheduled [address] DIABETIC EYE EXAM [facility] 00:00:00 [code = DIABETIC EYE Medical [facility] EXAM] Future Scheduled [address] [facility] 00:00:00 examination [facility] (regime/therapy) [code = 876875696] Future Scheduled 1975 Urine screening for [facility] 00:00:00 protein (procedure) Medical Center [code = 803660619] Future Scheduled [address] DIABETIC EYE EXAM [facility] 00:00:00 [code = DIABETIC EYE [facility] EXAM] Future Scheduled [address] [facility] 00:00:00 examination [facility] (regime/therapy) [code = 148516242] Future Scheduled 1975 Urine screening for [facility] 00:00:00 protein (procedure) Medical Center [code = 450283899] Future Scheduled [address] DIAB[address] EYE EXAM [facility] 00:00:00 [code = DIABETIC EYE Medical [facility] EXAM] Future Scheduled [address] [facility] 00:00:00 examination [facility] (regime/therapy) [code = 760450578] Future Scheduled 1975 Urine screening for [facility] 00:00:00 protein (procedure) Medical Center [code = 334378318] Future Scheduled [address]AB[address] EYE EXAM [facility] 00:00:00 [code = DIABETIC EYE [facility] EXAM] Future Scheduled [address] [facility] 00:00:00 examination [facility] (regime/therapy) [code = 693775403] Future Scheduled 1975 Urine screening for [facility] 00:00:00 protein (procedure) Medical Center [code = 838827045] Future Scheduled [address] DIABETIC EYE EXAM [facility] 00:00:00 [code = DIABETIC EYE Medical [facility] EXAM] Future Scheduled [address] [facility] 00:[facility] examination [facility] (regime/therapy) [code = 456822445] Future Scheduled 1975 Urine screening for [facility] 00:00:00 protein (procedure) Medical Center [code = 415463149] Future Scheduled [address] DIABETIC EYE EXAM [facility] 00:00:00 [code = DIABETIC EYE [facility] EXAM] Future Scheduled [address] [facility] 00:00:00 examination [facility] (regime/therapy) [code = 622887093] Future Scheduled 1975 Urine screening for [facility] 00:00:00 protein (procedure) Medical Center [code = 072659336] Future Scheduled [address] DIABET[address] EYE EXAM [facility] 00:00:00 [code = DIABETIC EYE [facility] EXAM] Future Scheduled [address] [facility] 00:00:00 examination [facility] (regime/therapy) [code = 615113492] Future Scheduled 1975 Urine screening for [facility] 00:00:00 protein (procedure) Medical Center [code = 246577643] Future Scheduled [address]AB[address] EYE EXAM [facility] 00:00:00 [code = DIABETIC EYE [facility] EXAM] Future Scheduled [address] [facility] 00:00:00 examination [facility] (regime/therapy) [code = 227690982] Future Scheduled 1975 Urine screening for [facility] 00:00:00 protein (procedure) Medical Center [code = 712858682] Future Scheduled [address] DIABETIC EYE EXAM [facility] 00:00:00 [code = DIABETIC EYE [facility] EXAM] Future Scheduled [address] [facility] 00:00:00 examination [facility] (regime/therapy) [code = 248694899] Future Scheduled 1975 Urine screening for [facility] Test 00:00:00 protein (procedure) Medical Center [code = 721450396] Future Scheduled 1965 COVID-19 VACCINE (#1) [facility] [...] [facility] VACCINE (#1)] Future Scheduled [address] [facility] 00:[facility]00 [facility] colon (procedure) [code = 483771511] Future Scheduled [address] [facility] 00:00:00 [facility] colon (procedure) [code = 250544480] Future Scheduled 1965 Sigmoid[facility] Future Scheduled [address] [facility] 00:[facility]:00 [facility] colon (procedure) [code = 801673193] Future Scheduled [address] [facility] 00:00:00 [facility] colon (procedure) [code = 989403266] Future Scheduled [address] [facility] 00:00:00 (combo) [code = CT Medical C enter Colonography (combo)] Future Scheduled [address] [facility] 00:00:00 [facility] colon (procedure) [code = 853971814] Future Scheduled [address] [facility] 00:00:00 [facility] colon (procedure) [code = 966385067] Future Scheduled [address] [facility] 00:00:00 [facility] colon (procedure) [code = 309446386] Future Scheduled [address] [facility] 00:00:00 [facility] colon (procedure) [code = 069268206] Future Scheduled [address] [facility] 00:00:00 [facility] colon (procedure) [code = 088302838] Future Scheduled 1965 Sigmoidoscopy [code = [facility] [...] [facility] colon (procedure) [code = 081873742] Future Scheduled [address] [facility] 00:00:00 [facility] colon (procedure) [code = 889087695] Future Scheduled [address] [facility] 00:00:00 [facility] colon (procedure) [code = 055991733] Future Scheduled [address] [facility] 00:00:00 [facility] colon (procedure) [code = 010610724] Future Scheduled 1965 [facility] Future Scheduled [address] [facility] 00:00:00 (combo) [code = CT Medical [facility] enter Colonography (combo)] Future Scheduled [address] [facility] 00:00:00 [facility] colon (procedure) [code = 110378716] Future Scheduled [address] [facility] 00:00:00 [facility] colon (procedure) [code = 508974427] Future Scheduled [address] [facility] 00:00:00 malignant [facility] [code = 191980645] Future Scheduled [address] [facility]procedure) [code = 103725977] Future Scheduled 1965 [facility] [address] [facility] 00:[facility]:00 (combo) [code = [facility] (combo)] Future Scheduled [address] [facility]00 [facility] (procedure) [code = [id number]] Future Scheduled [address] [facility] 00[facility]00 [facility] (procedure) [code = 671786727] Future Scheduled [address] [facility] 00[facility]00 [facility] (procedure) [code = 540524391] Future Scheduled [address] [facility] 00[facility]00 [facility] (procedure) [code = 263440522] Future Scheduled 1965 [facility] Sched[facility] [address] [facility] 00:00:00 (combo) [code = CT [facility] Colon[facility] (combo)] Future Scheduled [address] [facility] 00:[facility]:00 [facility] (procedure) [code = 354944725] Future Scheduled [address] [facility] 00:[facility]:00 [facility] (procedure) [code = 070140941] Future Scheduled [address] [facility] 00:[facility]:00 [facility] (procedure) [code = 080313984] Future Scheduled [address] [facility] 00:[facility]:00 [facility] (procedure) [code = 014559422] Future Scheduled 1965 S[facility] [address] [facility] 00:00:00 (combo) [code = CT [facility] Colonography (combo)] Future Scheduled [address] [facility] 00:[facility]:00 [facility] (procedure) [code = 874015731] Future Scheduled [address] [facility] 00:[facility]:00 [facility] (procedure) [code = 759655584] Future Scheduled [address] [facility] 00:[facility]:00 [facility] (procedure) [code = 412293731] Future Scheduled [address] [facility] 00:[facility]:00 [facility] (procedure) [code = 052229917] Future Scheduled 1965 [facility] Sched[facility] [address] [facility] 00:00:00 (combo) [code = CT [facility] Colon[facility] (combo)] Future Scheduled [address] [facility] 00:[facility]:00 [facility] (procedure) [code = 488478768] Future Scheduled [address] [facility] 00:[facility]:00 [facility] (procedure) [code = 535018882] Future Scheduled [address] [facility] 00:00:00 [facility] (procedure) [code = 379387235] Future Scheduled [address] [facility] 00:00:00 [facility] (procedure) [code = 183489299] Future Scheduled 1965 S[facility]] [facility] Future Scheduled [address] [facility] 00:00:00 (combo) [code = CT [facility] Colonography (combo)] Future Scheduled [address] [facility] 00:[facility]:00 [facility] (procedure) [code = 556874751] Future Scheduled [address] [facility] 00:00:00 [facility] (procedure) [code = 693823688] Future Scheduled [address] [facility] 00:00:00 [facility] (procedure) [code = 291426993] Future Scheduled [address] [facility] 00:[facility]:00 [facility] (procedure) [code = 150696098] Future Scheduled 1965 [facility] Scheduled [address] [facility] 00:00:00 (combo) [code = CT [facility] Colon[facility] (combo)] Future Scheduled [address] [facility] 00:00:00 [facility] (procedure) [code = 405033295] Future Scheduled [address] [facility] 00:00:00 [facility] (procedure) [code = 943874475] Future Scheduled [address] [facility] 00:00:00 [facility] (procedure) [code = 555305587] Future Scheduled [address] [facility] 00:[facility]:00 [facility] (procedure) [code = 515617376] Future Scheduled 1965 Sigmoidoscopy [code = [facility] [code = 555345758] Future Scheduled [address] [facility] 00:[facility]:00 [facility] (procedure) [code = 809865890] Future Scheduled [address] [facility] 00:00:00 [facility] (procedure) [code = 609348840] Future Scheduled [address] [facility] 00:00:00 [facility] (procedure) [code = 840566952] Future Scheduled 1965 [facility]uled [address] [facility] 00:[facility]:00 [facility] (procedure) [code = 644324825] Future Scheduled [address] [facility] 00:00:00 [facility] (procedure) [code = 738738746] Future Scheduled [address] [facility] 00:00:00 [facility] (procedure) [code = 755552585] Future Scheduled [address] [facility] 00:00:00 [facility] (procedure) [code = 157788142] Future Scheduled 1965 [facility]oscopy [facility]] [facility] Scheduled [address] [facility] 00:00:00 (combo) [code = CT [facility] Colonography (combo)] Future Scheduled [address] [facility] 00:00:00 [facility] (procedure) [code = 700979961] Future Scheduled [address] [facility] 00:00:00 [facility] (procedure) [code = 293493652] Future Scheduled [address] [facility] 00:00:00 [facility] (procedure) [code = 343814201] Future Scheduled [address] [facility] 00:00:00 [facility] (procedure) [code = 006275175] Future Scheduled 1965 [facility] Future Scheduled [address] [facility] 00:00:00 (combo) [code = CT [facility] Colon[facility] (combo)] Future Scheduled [address] [facility] 00:00:00 [facility] (procedure) [code = 985022065] Future Scheduled [address] [facility] 00:00:00 [facility] (procedure) [code = 811367123] Future Scheduled [address] [facility] 00:00:00 [facility] (procedure) [code = 543864667] Future Scheduled [address] [facility] 00:00:00 [facility] (procedure) [code = 055868159] Future Scheduled 1965 [facility] [address] [facility] 00:00:00 (combo) [code = CT [facility] Colonography (combo)] Future Scheduled [address] [facility] 00:00:00 [facility] (procedure) [code = 982142780] Future Scheduled [address] [facility] 00:00:00 [facility] (procedure) [code = 199089735] Future Scheduled [address] [facility] 00:00:00 [facility] (procedure) [code = 796873615] Future Scheduled [address] [facility] 00:00:00 [facility] (procedure) [code = 237236845] Future Scheduled 1965 [facility] [address] [facility] 00:00:00 (combo) [code = CT [facility] Colonography (combo)] Future Scheduled [address] [facility] 00:00:00 [facility] (procedure) [code = 486052438] Future Scheduled [address] [facility] 00:00:00 [facility] (procedure) [code = 477709899] Future Scheduled [address] [facility] 00:00:00 [facility] (procedure) [code = 139339396] Future Scheduled [address] [facility] 00:00:00 [facility] (procedure) [code = 465745001] Future Scheduled 1965 [facility] Scheduled [address] [facility] 00:00:00 (combo) [code = CT [facility] Colonography (combo)] Future Scheduled [address] [facility] (procedure) [code = 919340450] Future Scheduled [address] [facility] 00:00:00 [facility] (procedure) [code = 068612216] Future Scheduled [address] [facility] 00:00:00 [facility] (procedure) [code = 019515625] Future Scheduled [address] [facility] 00:00:00 [facility] (procedure) [code = 963178311] Future Scheduled 1965 [facility]oscopy [facility] Scheduled [address] [facility] 00:00:00 (combo) [code = CT [facility] Colonography (combo)] Future Scheduled [address] [facility] 00:00:00 [facility] (procedure) [code = 032064160] Future Scheduled [address] [facility] 00:00:00 [facility] (procedure) [code = 388845340] Future Scheduled [address] [facility] 00:00:00 [facility] (procedure) [code = 213864843] Future Scheduled [address] [facility] 00:00:00 [facility] (procedure) [code = 143899595] Future Scheduled 1965 [facility] [address] [facility] 00:00:00 (combo) [code = CT [facility] Colonography (combo)] Future Scheduled [address] [facility] 00:00:00 [facility] (procedure) [code = 661671941] Future Scheduled [address] [facility] 00:00:00 [facility] (procedure) [code = 046655928] Future Scheduled [address] [facility] 00:00:00 [facility] (procedure) [code = 574225976] Future Scheduled [address] [facility] 00:00:00 [facility] (procedure) [code = 884747242] Future Scheduled 1965 [facility] Future Scheduled [address] [facility] 00:00:00 (combo) [code = CT [facility] enter Colonography (combo)] Future Scheduled [address] [facility] 00:00:00 [facility] (procedure) [code = 615308321] Future Scheduled [address] [facility] 00:00:00 [facility] (procedure) [code = 033008435] Future Scheduled [address] [facility] 00:00:00 [facility] (procedure) [code = 671751689] Future Scheduled [address] [facility] 00:00:00 [facility] (procedure) [code = 063944219] Future Scheduled 1965 [facility]] [facility] Future Scheduled [address] [facility] 00:00:00 (combo) [code = CT [facility] enter Colonography (combo)] Future Scheduled [address] [facility] 00:00:00 [facility] (procedure) [code = 818774971] Future Scheduled [address] [facility] 00:00:00 [facility] (procedure) [code = 885591721] Future Scheduled [address] [facility] 00:00:00 [facility] (procedure) [code = 196042217] Future Scheduled [address] [facility] 00:00:00 [facility] (procedure) [code = 966182862] Future Scheduled 1965 Sigmoidoscopy [code = [facility] [code = 177179935] Future Scheduled [address] [facility] 00:[facility]:00 [facility] (procedure) [code = 542084168] Future Scheduled [address] [facility] 00:00:00 [facility] (procedure) [code = 402999238] Goal Plan of Care Note [code = 49193-9] Goal Plan of Care Note [code = 34367-4] Goal Plan of Care Note [code = 85378-5] Goal Plan of Care Note [code = 75122-2] Goal Plan of Care Note [code = 93897-6] Goal Plan of Care Note [code = 62940-9] Goal Plan of Care Note [code = 97525-0] Goal Plan of Care Note [code = 36318-3] Goal Plan of Care Note [code = 65137-4] Goal Plan of Care Note [code = 16226-1] Goal Plan of Care Note [code = 17197-7] Goal Plan of Care Note [code = 19922-0] Goal Plan of Care Note [code = 56329-5] Goal Plan of Care Note [code = 57847-6] Goal Plan of Care Note [code = 33103-3] Goal Plan of Care Note [code = 58227-8] Goal Plan of Care Note [code = 34749-6] Goal Plan of Care Note [code = 13011-5] Goal Plan of Care Note [code = 76384-4] Goal Plan of Care Note [code = 30787-1] Goal Plan of Care Note [code = 50077-9] Goal Plan of Care Note [code = 45797-7] Goal Plan of Care Note [code = 72921-7] Goal Plan of Care Note [code = 54602-4] Goal Plan of Care Note [code = 90177-7] Goal Plan of Care Note [code = 08880-7] Goal Plan of Care Note [code = 86910-8] Goal Plan of Care Note [code = 83759-7] Goal Plan of Care Note [code = 25481-9] Goal Plan of Care Note [code = 73792-2] Goal Plan of Care Note [code = 48776-2] Goal Plan of Care Note [code = 52790-5] Goal Plan of Care Note [code = 27386-7] Goal Plan of Care Note [code = 14554-1] Goal Plan of Care Note [code = 02185-9] Goal Plan of Care Note [code = 08515-6] Goal Plan of Care Note [code = 06600-3] Goal Plan of Care Note [code = 04042-1] Goal Plan of Care Note [code = 55984-2] Goal Plan of Care Note [code = 90770-5] Goal Plan of Care Note [code = 52497-3] Goal Plan of Care Note [code = 78150-1] Goal Plan of Care Note [code = 56524-9] Goal Plan of Care Note [code = 01047-5] Goal Plan of Care Note [code = 80004-2] Goal Plan of Care Note [code = 78012-9] Goal Plan of Care Note [code = 07091-9] Goal Plan of Care Note [code = 46597-2] Goal Plan of Care Note [code = 70963-2] Goal Plan of Care Note [code = 51382-3] Goal Plan of Care Note [code = 31738-8] Goal Plan of Care Note [code = 15314-4] Goal Plan of Care Note [code = 03013-8] Goal Plan of Care Note [code = 51777-8] Goal Plan of Care Note [code = 01476-5] Goal Plan of Care Note [code = 24035-7] Goal Plan of Care Note [code = 85222-4] Goal Plan of Care Note [code = 26036-6] Goal Plan of Care Note [code = 43602-1] Goal Plan of Care Note [code = 99969-2] Goal Plan of Care Note [code = 46229-3] Goal Plan of Care Note [code = 17624-1] Goal Plan of Care Note [code = 89460-2] Goal Plan of Care Note [code = 99597-7] Goal Plan of Care Note [code = 61562-6] Goal Plan of Care Note [code = 63180-4] Goal Plan of Care Note [code = 58453-7] Goal Plan of Care Note [code = 06205-1] Goal Plan of Care Note [code = 62830-5] Goal Plan of Care Note [code = 40802-1] Goal Plan of Care Note [code = 54500-4] Goal Plan of Care Note [code = 91400-7] Goal Plan of Care Note [code = 39989-7] Goal Plan of Care Note [code = 55930-9] Goal Plan of Care Note [code = 75935-2] Goal Plan of Care Note [code = 61118-5] Goal Plan of Care Note [code = 22599-3] Goal Plan of Care Note [code = 36386-8] Goal Plan of Care Note [code = 16485-0] Goal Plan of Care Note [code = 62722-2] Goal Plan of Care Note [code = 66549-3] Goal Plan of Care Note [code = 98750-8] Goal Plan of Care Note [code = 69329-6] Goal Plan of Care Note [code = 26778-4] Goal Plan of Care Note [code = 26110-3] Goal Plan of Care Note [code = 41239-0] Goal Plan of Care Note [code = 50124-6] Goal Plan of Care Note [code = 95083-8] Goal Plan of Care Note [code = 70740-8] Goal Plan of Care Note [code = 33512-8] Goal Plan of Care Note [code = 58811-8] Goal Plan of Care Note [code = 31239-9] Goal Plan of Care Note [code = 66319-3] Goal Plan of Care Note [code = 87534-2] Goal Plan of Care Note [code = 49960-0] Goal Plan of Care Note [code = 32140-6] Goal Plan of Care Note [code = 55459-9] Goal Plan of Care Note [code = 07226-5] Goal Plan of Care Note [code = 59586-7] Goal Plan of Care Note [code = 61405-4] Goal Plan of Care Note [code = 11308-5] Goal Plan of Care Note [code = 78303-7] Goal Plan of Care Note [code = 20071-4] Goal Plan of Care Note [code = 23926-6] Goal Plan of Care Note [code = 75558-6] Goal Plan of Care Note [code = 02823-1] Goal Plan of Care Note [code = 77826-5] Goal Plan of Care Note [code = 85453-4] Goal Plan of Care Note [code = 48302-4] Goal Plan of Care Note [code = 77911-2] Goal Plan of Care Note [code = 24832-7] Goal Plan of Care Note [code = 15973-8] Goal Plan of Care Note [code = 87897-3] Goal Plan of Care Note [code = 62830-5] Goal Plan of Care Note [code = 63448-4] Goal Plan of Care Note [code = 19979-6] Goal Plan of Care Note [code = 90904-7] Goal Plan of Care Note [code = 37407-2] Goal Plan of Care Note [code = 99684-7] Goal Plan of Care Note [code = 10946-5] Goal Plan of Care Note [code = 28950-1] Goal Plan of Care Note [code = 52594-1] Goal Plan of Care Note [code = 08907-0] Goal Plan of Care Note [code = 05448-2] Goal Plan of Care Note [code = 72564-9] Goal Plan of Care Note [code = 45891-5] Goal Plan of Care Note [code = 74134-0] Goal Plan of Care Note [code = 61581-1] Goal Plan of Care Note [code = 31517-1] Goal Plan of Care Note [code = 48677-6] Goal Plan of Care Note [code = 57707-5] Goal Plan of Care Note [code = 16669-5] Goal Plan of Care Note [code = 78749-0] Goal Plan of Care Note [code = 23881-4] Goal Plan of Care Note [code = 92499-2] Goal Plan of Care Note [code = 21638-8] Goal Plan of Care Note [code = 59952-7] Goal Plan of Care Note [code = 61079-4] Goal Plan of Care Note [code = 93867-4] Goal Plan of Care Note [code = 93268-2] Goal Plan of Care Note [code = 32176-7] Goal Plan of Care Note [code = 63312-3] Goal Plan of Care Note [code = 39219-1] Goal Plan of Care Note [code = 03718-9] Goal Plan of Care Note [code = 85370-5] Goal Plan of Care Note [code = 66937-9] Goal Plan of Care Note [code = 97050-9] Goal Plan of Care Note [code = 94350-9] Goal Plan of Care Note [code = 02848-9] Goal Plan of Care Note [code = 75080-4] Goal Plan of Care Note [code = 30900-5] Goal Plan of Care Note [code = 62864-3] Goal Plan of Care Note [code = 59169-4] Goal Plan of Care Note [code = 95705-1] Goal Plan of Care Note [code = 69505-9] Goal Plan of Care Note [code = 48492-2] Goal Plan of Care Note [code = 40249-5] Goal Plan of Care Note [code = 10250-3] Goal Plan of Care Note [code = 89840-4] Goal Plan of Care Note [code = 90163-7] Goal Plan of Care Note [code = 05966-4] Goal Plan of Care Note [code = 65819-2] Goal Plan of Care Note [code = 34262-8] Goal Plan of Care Note [code = 05549-8] Goal Plan of Care Note [code = 66645-7] Goal Plan of Care Note [code = 73552-8] Goal Plan of Care Note [code = 87465-1] Goal Plan of Care Note [code = 97864-6] Goal Plan of Care Note [code = 19588-1] Goal Plan of Care Note [code = 64274-4] Goal Plan of Care Note [code = 76274-2] Goal Plan of Care Note [code = 04826-3] Goal Plan of Care Note [code = 26707-5] Goal Plan of Care Note [code = 01451-0] Goal Plan of Care Note [code = 06329-7] Goal Plan of Care Note [code = 14808-7] Goal Plan of Care Note [code = 74483-8] Goal Plan of Care Note [code = 75980-0] Goal Plan of Care Note [code = 33863-2] Goal Plan of Care Note [code = 19069-9] Goal Plan of Care Note [code = 21621-4] Goal Plan of Care Note [code = 82725-8] Goal Plan of Care Note [code = 66606-7] Goal Plan of Care Note [code = 12737-1] Goal Plan of Care Note [code = 82398-8] Goal Plan of Care Note [code = 71696-9] Goal Plan of Care Note [code = 51621-4] Goal Plan of Care Note [code = 67206-5] Goal Plan of Care Note [code = 37300-7] Goal Plan of Care Note [code = 49237-4] Goal Plan of Care Note [code = 87792-9] Goal Plan of Care Note [code = 60164-1] Goal Plan of Care Note [code = 66886-7] Goal Plan of Care Note [code = 54268-7] Goal Plan of Care Note [code = 95688-5] Goal Plan of Care Note [code = 40925-4] Goal Plan of Care Note [code = 39623-3] Goal Plan of Care Note [code = 36944-3] Goal Plan of Care Note [code = 93731-4] Goal Plan of Care Note [code = 64338-9] Goal Plan of Care Note [code = 03025-2] Goal Plan of Care Note [code = 82692-3] Goal Plan of Care Note [code = 50067-8] Goal Plan of Care Note [code = 95303-1] Goal Plan of Care Note [code = 35078-6] Goal Plan of Care Note [code = 25861-0] Goal Plan of Care Note [code = 70197-3] Goal Plan of Care Note [code = 88740-7] Goal Plan of Care Note [code = 96096-8] Goal Plan of Care Note [code = 50643-0] Goal Plan of Care Note [code = 35078-4] Goal Plan of Care Note [code = 10495-4] Goal Plan of Care Note [code = 70936-8] Goal Plan of Care Note [code = 47225-6] Goal Plan of Care Note [code = 85266-1] Goal Plan of Care Note [code = 18482-8] Goal Plan of Care Note [code = 93928-2] Goal Plan of Care Note [code = 96768-2] Goal Plan of Care Note [code = 67909-0] Goal Plan of Care Note [code = 11689-7] Goal Plan of Care Note [code = 84481-6] Goal Plan of Care Note [code = 10884-7] Goal Plan of Care Note [code = 47515-8] Goal Plan of Care Note [code = 14862-5] Goal Plan of Care Note [code = 00386-8] Goal Plan of Care Note [code = 63069-6] Goal Plan of Care Note [code = 18205-3] Goal Plan of Care Note [code = 74959-5] Goal Plan of Care Note [code = 48517-0] Goal Plan of Care Note [code = 83785-7] Goal Plan of Care Note [code = 87892-7] Goal Plan of Care Note [code = 38721-6] Goal Plan of Care Note [code = 03000-0] Goal Plan of Care Note [code = 42766-5] Goal Plan of Care Note [code = 57546-2] Goal Plan of Care Note [code = 14215-4] Goal Plan of Care Note [code = 21680-9] Goal Plan of Care Note [code = 05391-8] Goal Plan of Care Note [code = 31686-1] Goal Plan of Care Note [code = 35497-0] Goal Plan of Care Note [code = 04690-8] Goal Plan of Care Note [code = 07373-9] Goal Plan of Care Note [code = 05089-0] Goal Plan of Care Note [code = 65457-1] Goal Plan of Care Note [code = 26452-9] Goal Plan of Care Note [code = 02342-6] Goal Plan of Care Note [code = 01440-0] Goal Plan of Care Note [code = 57034-0] Goal Plan of Care Note [code = 32102-2] Goal Plan of Care Note [code = 33138-3] Goal Plan of Care Note [code = 39707-2] Goal Plan of Care Note [code = 85020-6] Goal Plan of Care Note [code = 09435-2] Goal Plan of Care Note [code = 13524-7] Goal Plan of Care Note [code = 16458-8] Goal Plan of Care Note [code = 40198-8] Goal Plan of Care Note [code = 72727-6] Goal Plan of Care Note [code = 83902-6] Goal Plan of Care Note [code = 76758-0] Goal Plan of Care Note [code = 72814-7] Goal Plan of Care Note [code = 59861-6] Goal Plan of Care Note [code = 55451-6] Goal Plan of Care Note [code = 76155-8] Goal Plan of Care Note [code = 02910-7] Goal Plan of Care Note [code = 26162-8] Goal Plan of Care Note [code = 83611-6] Goal Plan of Care Note [code = 29746-3] Goal Plan of Care Note [code = 47148-3] Goal Plan of Care Note [code = 61969-4] Goal Plan of Care Note [code = 49221-9] Goal Plan of Care Note [code = 04799-0] Goal Plan of Care Note [code = 04601-3] Goal Plan of Care Note [code = 53353-2] Goal Plan of Care Note [code = 19616-6] Goal Plan of Care Note [code = 75439-7] Goal Plan of Care Note [code = 67766-6] Goal Plan of Care Note [code = 85134-7] Goal Plan of Care Note [code = 35048-7] Goal Plan of Care Note [code = 55472-4] Goal Plan of Care Note [code = 32893-7] Goal Plan of Care Note [code = 70286-7] Goal Plan of Care Note [code = 33013-8] Goal Plan of Care Note [code = 22147-7] Goal Plan of Care Note [code = 90313-6] Goal Plan of Care Note [code = 07806-3] Goal Plan of Care Note [code = 76604-8] Goal Plan of Care Note [code = 17742-5] Goal Plan of Care Note [code = 42148-5] Goal Plan of Care Note [code = 69410-8] Goal Plan of Care Note [code = 42789-8] Goal Plan of Care Note [code = 18085-3] Goal Plan of Care Note [code = 23326-8] Goal Plan of Care Note [code = 26996-5] Goal Plan of Care Note [code = 79174-7] Goal Plan of Care Note [code = 68181-4] Goal Plan of Care Note [code = 14747-2] Goal Plan of Care Note [code = 33909-1] Goal Plan of Care Note [code = 03882-3] Goal Plan of Care Note [code = 88454-4] Goal Plan of Care Note [code = 64542-1] Goal Plan of Care Note [code = 18847-8] Goal Plan of Care Note [code = 27341-2] Goal Plan of Care Note [code = 93083-1] Goal Plan of Care Note [code = 13641-6] Goal Plan of Care Note [code = 95300-1] Goal Plan of Care Note [code = 89999-1] Goal Plan of Care Note [code = 31812-2] Goal Plan of Care Note [code = 61225-8] Goal Plan of Care Note [code = 82305-7] Goal Plan of Care Note [code = 94003-8] Goal Plan of Care Note [code = 74923-6] Goal Plan of Care Note [code = 20999-0] Goal Plan of Care Note [code = 64476-9] Goal Plan of Care Note [code = 10003-6] Goal Plan of Care Note [code = 14235-2] Goal Plan of Care Note [code = 45793-1] Goal Plan of Care Note [code = 29891-4] Goal Plan of Care Note [code = 46644-1] Goal Plan of Care Note [code = 67796-4] Goal Plan of Care Note [code = 00604-7] Goal Plan of Care Note [code = 09596-9] Goal Plan of Care Note [code = 91434-9] Goal Plan of Care Note [code = 03390-9] Goal Plan of Care Note [code = 96087-0] Goal Plan of Care Note [code = 77144-2] Goal Plan of Care Note [code = 29031-5] Goal Plan of Care Note [code = 21225-7] Goal Plan of Care Note [code = 63929-5] Goal Plan of Care Note [code = 25955-5] Goal Plan of Care Note [code = 86899-7] Goal Plan of Care Note [code = 67350-1] Goal Plan of Care Note [code = 48184-4] Goal Plan of Care Note [code = 72446-5] Goal Plan of Care Note [code = 25670-6] Goal Plan of Care Note [code = 92271-2] Goal Plan of Care Note [code = 40911-9] Goal Plan of Care Note [code = 35413-3] Goal Plan of Care Note [code = 03735-5] Goal Plan of Care Note [code = 83953-8] Goal Plan of Care Note [code = 67781-4] Goal Plan of Care Note [code = 71788-2] Goal Plan of Care Note [code = 66458-8] Goal Plan of Care Note [code = 55617-2] Goal Plan of Care Note [code = 49716-7] Goal Plan of Care Note [code = 50458-9] Goal Plan of Care Note [code = 90383-6] Goal Plan of Care Note [code = 94791-1] Goal Plan of Care Note [code = 65829-8] Goal Plan of Care Note [code = 90640-3] Goal Plan of Care Note [code = 84911-3] Goal Plan of Care Note [code = 83259-8] Goal Plan of Care Note [code = 37497-2] Goal Plan of Care Note [code = 12154-5] Goal Plan of Care Note [code = 38792-4] Goal Plan of Care Note [code = 87726-2] Goal Plan of Care Note [code = 52105-0] Goal Plan of Care Note [code = 47893-2] Goal Plan of Care Note [code = 70788-5] Goal Plan of Care Note [code = 47008-6] Goal Plan of Care Note [code = 59490-5] Goal Plan of Care Note [code = 08853-6] Goal Plan of Care Note [code = 01216-9] Goal Plan of Care Note [code = 95616-4] Goal Plan of Care Note [code = 85732-6] Goal Plan of Care Note [code = 61522-5] Goal Plan of Care Note [code = 13297-9] Goal Plan of Care Note [code = 78409-4] Goal Plan of Care Note [code = 66393-2] Goal Plan of Care Note [code = 70614-0] Goal Plan of Care Note [code = 51325-7] Goal Plan of Care Note [code = 35351-1] Goal Plan of Care Note [code = 41906-7] Goal Plan of Care Note [code = 63849-0] Goal Plan of Care Note [code = 18313-3] Goal Plan of Care Note [code = 37551-0] Goal Plan of Care Note [code = 34737-9] Goal Plan of Care Note [code = 13807-9] Goal Plan of Care Note [code = 87268-0] Goal Plan of Care Note [code = 64325-0] Goal Plan of Care Note [code = 26803-5] Goal Plan of Care Note [code = 76758-5] Goal Plan of Care Note [code = 59481-2] Goal Plan of Care Note [code = 42850-1] Goal Plan of Care Note [code = 34083-5] Goal Plan of Care Note [code = 63971-2] Goal Plan of Care Note [code = 18358-0] Goal Plan of Care Note [code = 24241-5] Encounters Start End Encounter Admission Attending Care Care Encounter Source Date/Time Date/Time Type Type Clinicians Facility Department ID 2022-04-01 Outpatient 3 [id number] [facility] REF [id number] [facility] 15:21:07 [facility] [place] 2022-03-31 Outpatient 3 [id number] E[facility] REF [id number] [facility] 14:48:02 [facility] [place] 2022-03-25 Outpatient 3 [id number] E[facility] REF [id number] [facility] 10:48:24 [facility] [place] 2021-02-05 Outpatient BHARAT, [facility] [id number] [facility] 05:27:44 IRMA 2021-02-04 Outpatient ELISE, [facility] Surgery [id number] [facility] 23:01:57 MAHBOOB 2022-09-10 2022-09-10 Outpatient SFA SFA [id number] 023 [place] 08:13:34 08:13:34 0511 [facility] 2022-09-08 2022-09-08 Outpatient SFA SFA [id number] 023 [place] 17:33:06 17:33:06 0509 [facility] 2022-08-19 2022-08-19 Outpatient SFA SFA 11295-5 023 [place] 10:53:44 10:53:44 0419 [facility] 2022-08-18 2022-08-18 Outpatient Rayne DENNISON [facility] [id number] Univers 00:00:00 00:00:00 HO [facility] 2022-04-21 2022-07-23 Outpatient RECERTIFIC MICHAEL ENCCLR ENCCLR [id number] ENCCLR 00:00:00 00:00:00 JACINTO WEBBER 2022-07-20 2022-07-20 Outpatient SFA SFA [id number] 023 [place] 11:34:05 11:34:05 0320 [facility] 2022-06-29 2022-06-29 Outpatient SFA [facility] [id number] 023 [place] 11:09:32 11:09:32 0227 [facility] 2022-06-09 2022-06-09 Outpatient Rayne FERNANDEZ [facility] [id number] Univers 13:30:00 13:30:00 JOSELUIS [facility] 2022-05-28 2022-05-28 Outpatient SFA SFA [id number] 023 [place] 09:36:19 09:36:19 0126 [facility] 2022-05-28 2022-05-28 Orders Doctor DECKER 1.2.840.114 [id number] Univers 00:00:00 00:00:00 Only Unassigned, RONNY 350.1.13.10 ity of [place] [facility] 4.2.7.2.686 Tony as [phone] [address] 2022-04-23 2022-04-23 Outpatient SFA [facility] [id number] 022 [place] 11:12:51 11:12:51 1222 F Mart[facility]nez 2022-04-23 2022-04-23 Outpatient [id number] 386wk0-5 00:00:00 00:00:00 Visit 4k42-136m q34-036u-5 -8818-496 818-127257 9522926n0 6681f3 2022-04-22 2022-04-22 Outpatient SFA [facility] [id number] 022 [place] 11:56:37 11:56:37 1221 [facility] 2022-04-21 2022-04-21 Outpatient KEKE AUGUSTINE ENCCLR ENCCLR [id number] ENCCLR 00:00:00 00:00:00 ADMISSION Y, GERRI 2022-04-20 2022-04-20 Outpatient SFA SFA [id number] 022 [place] 13:44:26 13:44:26 1219 F Mart[facility]nez 2022-04-20 2022-04-20 Outpatient ca61445k- [id number] fa 96716k-2 00:00:00 00:00:00 Visit 868d-4ba4 68d-4ba4-8 -857d-890 57d-8900b2 2v144621s 82653c 2022-04-07 2022-04-17 Inpatient 3 [facility] ENCPL OT 5814 [facility] 18:25:00 16:40:00 hemiguel, 1206 [facility] Rehabil itation Tianna ndiaye 2022-04-15 2022-04-15 Outpatient Provider, SANDIE WILSON EU031 [address] [facility] 03:25:00 03:25:00 Undefined 02 [facility] 2022-03-17 2022-03-17 Outpatient SFA SFA 30764-5 022 [place] 09:09:19 09:09:19 1115 F Mart[facility]nez 2022-03-17 2022-03-17 Outpatient [id number]- [id number] ct439o-q 00:00:00 00:00:00 Visit e279-6831 106-4636-b -d4ki-806 5be-547ae2 xh264unm2 86dad8 2022-03-04 2022-03-04 Outpatient [facility] [id number] 022 [place] 13:56:07 13:56:07 1102 F Mart[facility]nez 2022-03-04 2022-03-04 Outpatient [id number]- [id number] 7246be-9 00:00:00 00:00:00 Visit 9529-42f7 529-42f7-a -gf64-vc5 b66-au551b 51c0ox9j9 5cb7c5 2022-02-24 2022-02-24 [facility] [id number] 00:00:00 00:00:00 [facility] 2022-02-24 2022-02-24 [facility] [id number] 00:00:00 00:00:00 [facility] 2022-02-17 2022-02-17 Outpatient [facility] [id number] 022 [place] 14:09:24 14:09:24 1018 F Mart[facility] 2022-02-17 2022-02-17 Outpatient [id number]- [id number] ck894j-q 00:00:00 00:00:00 Visit q12t-34w6 39e-47c5-b -q2a4-9is 5k4-5mjz9t [id number] [id number] 7413-10-04 2022-02-03 Outpatient [facility] [id number] 022 [place] 13:41:10 13:41:10 1004 F Mart[place] 2022-02-03 2022-02-03 Outpatient [id number] 189413-5 00:00:00 00:00:00 Visit 4378-45d4 378-45d4-b -pb2b-908 d4b-4863o0 6f97926gq 0427fc 2021-12-23 2021-12-23 Telephone KAREN Fernandez 1.2.833.609 [id number] Univers 00:00:00 00:00:00 [facility] 350.1.13.10 it y of [place] 4.2.7.2.686 Tony as CAR?BLEA [id number] Id loree [facility] 220 [facility][note 3] 2021-12-04 2021-12-04 Outpatient [id number]- [id number] 971y17-9 00:00:00 00:00:00 Visit 44g6-2u42 6q1-3l82-9 -51c8-q0q 6y1-e6sbt9 uw2409s62 255c45 2021-12-02 2021-12-02 [facility] [id number] Univers 16:00:00 16:00:00 [facility] 2021-12-02 2021-12-02 Flight Agent Lab, Gen [facility] 1.2.840.1 14 [id number] Univers 15:15:00 15:16:31 [facility] 350.1.13.10 [facility] 4.2.7.2.686 Tony as CAR?BLEA [phone] Id loree [facility] 353 [facility][note 3] 2021-12-02 2021-12-02 [facility] [id number] Univers 14:30:00 14:57:05 [facility] 2021-12-02 2021-12-02 [facility] 1.2.840.114 [id number] Univers 14:30:00 14:57:05 Visit [facility] 350.1.13.10 it y of [place] 4.2.7.2.686 Tony as CAR?BLEA [phone] [address] 2021-12-02 2021-12-02 Outpatient [id number]- [id number] 2c7039-1 00:00:00 00:00:00 Visit 2ay4-5193 db2-4873-a -q2d9-073 0z9-6028y1 3o51w69f6 1f79f2 2021-11-26 2021-11-26 [facility] [id number] Univers 14:00:00 14:00:00 [facility] 2021-10-21 2021-10-21 Outpatient [facility] [id number] Univers 14:30:00 14:30:00 [facility] ity [facility] 2021-07-29 2021-07-29 Telephone [facility] 1.2.350.461 [id number] Univers 00:00:00 00:00:00 [facility] [employer] 350.1.13.10 it y of [place] 4.2.7.2.686 Tony as CAR?BLEA [phone] [address] MEDICAL [facility]ICE [facility] 2021-07-15 2021-07-15 Outpatient R KHOA [facility] [id number] Univers 09:30:00 10:12:40 [facility] ity [facility] 2021-07-15 2021-07-15 Office [facility] 1.2.840.114 [id number] Univers 09:30:00 10:12:40 Visit [facility] 350.1.13.10 it y of [place] 4.2.7.2.686 Tony as CAR?BLEA [phone] [address] MEDICAL OFFICE [facility] 2021-03-06 2021-03-06 [facility] Radiology [facility] 1.2.840.114 [id number] Univers 12:24:35 23:59:00 Encounter [place] 350.1.13.10 [place] [phone] [address] 2021-03-06 2021-03-06 Hospital Radiology [facility] 1.2.840.114 [id number] Univers 12:23:40 12:23:40 Encounter [place] 350.1.13.10 it[place] [id number] [address] 2021-03-06 2021-03-06 Outpatient R RADIOLOGY [facility] [id number] Univers 12:23:40 12:23:40 ity of [facility] 2021-03-06 2021-03-06 Outpatient R RADIOLOGY [facility] 81276 [id number] Univers 12:23:40 12:23:40 ity of [facility] 2021-02-27 2021-02-27 Outpatient R RADIOLOGY [facility] [id number] Univers 00:00:00 00:00:00 ity [facility] 2021-02-27 2021-02-27 Outpatient R RADIOLOGY [facility] [id number] Univers 00:00:00 [facility] 2021-02-[facility] 2021-02-[address] [facility] [id number] [facility] 00:00:00 00:00:00 [facility] 2021-02-03 2021-02-03 Orders Doctor BRIANNE 1.2.840.114 [id number] Univers 00:00:00 00:00:00 Only Unassigned, RONNY 350.1.13.10 [facility] [place] [facility] 4.2.7.2.686 Tony as [id number] [address] 2020-11-22 2020-11-22 Outpatient R BENEDICT [facility] 11502 [id number] Univers 13:00:00 13:00:00 [facility] 2020-10-08 2020-10-08 Telephone [facility] 1.2.840.114 [id number] 00:00:00 00:00:00 Sam Doherty 350.1.13.10 [place] 4.2.7.2.686 Professio [id number] [address] 2020-10-07 2020-10-07 Orders Doctor BRIANNE 1.2.840.114 [id number] 00:00:00 00:00:00 Only UnassignedRONNY 350.1.13.10 [facility] 4.2.7.2.686 [id number] [facility] 2020-10-04 2020-10-04 Outpatient R BENEDICT [facility] [id number] Univers 14:00:00 14:00:00 SMA dave [facility] 2020-09-19 2020-09-19 Outpatient Rayne GARCIA [facility] [id number] Univers 11:00:00 11:00:00 DEAN stewart o f [facility] 2020-09-10 2020-09-10 Outpatient Rayne GARCIA [facility] [id number] Univers 10:00:00 10:00:00 DEAN sheffield [facility] 2020-08-20 2020-08-20 Office [facility] 1.2.840.114 [id number] 13:15:09 13:42:21 Visit Dean Doherty 350.1.13.10 [place] 4.2.7.2.686 Tania [id number] [facility] 2020-08-20 2020-08-20 Outpatient Rayne GARCIA [facility] [id number] Univers 13:20:00 13:20:00 DEAN sheffield [facility] 2019-12-14 2019-12-14 Outpatient SLE [facility] [id number] [facility] 00:00:00 00:00:00 2019-11-14 2019-11-14 Outpatient EL GIPSON, SLE [facility] [id number] [facility] 00:00:00 00:00:00 HUNTER 2019-11-14 2019-11-14 Outpatient SLEH [facility] [id number] [facility] 00:00:00 00:00:00 2019-11-14 2019-11-14 Outpatient EL SLEH [facility] [id number] [facility] 00:00:00 00:00:00 2019-10-31 2019-10-31 Outpatient SLEH [facility] [id number] [facility] 00:00:00 00:00:00 2019-10-31 2019-10-31 Outpatient SLEH [facility] [id number] [facility] 00:00:00 00:00:00 2019-10-17 2019-10-17 Outpatient SLEH [facility] [id number] [facility] 00:00:00 00:00:00 2019-10-17 2019-10-17 Outpatient EL [facility] [id number] [facility] 00:00:00 00:00:00 2019-07-13 2019-07-13 Outpatient SLEH [facility]H [id number] 2-2 SLEH 00:00:00 00:00:00 [id number] 2019-06-15 2019-06-15 Outpatient SLEH [facility] [id number] 2-2 [facility]H 00:00:00 00:00:00 [id number] Results Test Description Test Time Test Comments Results Result Comments Source HEMOGLOBIN A1c 2022-09-11 05:14:56 Test Item Value Reference Range Interpretation Comme nts HEMOGLOBIN A1c (test code = 5.9 % 4.2-5.6 H [employer] 78725) GUIDELINES FOR HGB A1C: PREDIABETES/INC REASED RISK . . . . . . . 5.7-6.4% DIAGN OSIS OF DIABETES . . . . . . . . . >=6.5 % WITH CONFIRMATION OR APPROPRIATE SYM PTOMS NOTE: ASSAY MAY BE AFFECTED BY HEM OGLOBINOPATHIES (SICKLE CELL ANEMIA, S- C DISEASE, OTHERS) OR ARTIFICIALLY LO WERED BY DECREASED RED CELL SURVIVAL ( HEMOLYTIC ANEMIAS, BLOOD LOSS, ETC.). CO NSIDER ALTERNATE TESTING OR LABORATORY C ONSULTATION. UNLESS OTHERWISE INDIC ATED, ALL TESTING PERFORMED AT [facility], [facility]. [address] [place] [address] CONNIE CHRISTENSEN DIRECTOR: Chuckie NAVA MYKE NUMBER [id number] CAP ACCREDITATION N O. [id number] COMPREHENSIVE METABOLIC [id number] 05:50:10 Test Item Value Reference Range Interpretation Comments GLUCOSE (test code = 199 MG/DL 70-99 H 2216) BUN (test code = 53 MG/DL 6-20 H 2207) CREATININE (test 9.05 MG/DL 0.80-1.40 H code = 221) eGFR (2020 CKD-EPI) 6 ML/MIN/1.73 >60 L (test code = 61129) CALC BUN/CREAT (test 6 RATIO 6-28 code = 2235) SODIUM (test code = 135 MEQ/L 946-158 2333) POTASSIUM (test code 4.3 MEQ/L 3.5-5.4 = 2227) CHLORIDE (test code 92 MEQ/L 95-107 L = 2215) CARBON DIOXIDE (test 24 MEQ/L 19-31 code = 2206) CALCIUM (test code = 8.7 MG/DL 8.5-10.5 2208) PROTEIN, TOTAL (test 7.9 G/DL 6.1-8.3 code = 222) ALBUMIN (test code = 4.7 G/DL 3.5-5.2 2200) CALC GLOBULIN (test 3.2 G/DL 1.9-3.7 code = 2240) CALC A/G RATIO (test 1.5 RATIO 1.0-2.6 code = 2234) BILIRUBIN, TOTAL 0.3 MG/DL See_Comment [Automated message] (test code = 2207) The syste m which generated this result transmitted ref erence range: <=1.2. T he reference range was not used to int erpret this result as normal/abnormal . ALKALINE PHOSPHATASE 90 U/L 40-123 (test code = 2204) AST (test code = 20 U/L 9-50 2217) ALT (test code = 15 U/L 5-50 CPL pal s 2218) important patho logy staff changes effective 07/01. New patholo gy staff will prov lisa uninterrupted, excellent patie nt care and clinic al consultation. S ee URL: [email or web address]. UNLE SS OTHERWISE INDIC ATED, ALL TESTING PER FORMED AT [facility] [address] [employer] DIRECTOR: SANGEETA MILLER M.D. C MYKE NUMBER [id number] CAP ACCREDITATION N O. [id number] TSH, THIRD [id number] 06:11:47 Test Item Value Reference Range Interpretation Comments TSH, THIRD >100.000 0.400-4.[address] [facility] has GENERATION (test UIU/ML important p athology code = 2821) staff changes effective 07/01. New patholo gy staff will prov lisa uninterrupted, excellent patie nt care and clinic al consultation. S ee URL: [email or web address]. UNLE SS OTHERWISE INDIC ATED, ALL TESTING PER FORMED [facility] [id number] [place] [address] [employer] DIRECTOR: LATOYA MCCALL M.D. CLIA NUMBER [id number] CAP ACCREDITATION N O. [id number] LIPID [id number] 03:11:34 Test Item Value Reference Range Interpretation Comments CHOLESTEROL (test 240 MG/DL <200 H code = 2210) TRIGLYCERIDES (test 240 MG/DL <150 H code = 2232) HDL CHOLESTEROL (test 78 MG/DL >39 code = 2220) CALC LDL CHOL (test 123 MG/DL <100 H NOTE: C ALCULATED LDL code = 2237) IS BASED ON IRAM-NIETO METHOD WHICHINCLUDES ADJUSTABLE TRIGLYCERIDE:VL DL CHOLESTEROL RAT IO.THIS FACTOR VARIES B Y MEASURED TRIGLY CERIDE AND NON-HDLCHOL ESTEROL CONCENTRATIONS WITH INCREASED CALCU LATED LDL SEENIN HIGH ER TRIGLYCERIDE OR LOWER NON-HDL SPECIME NS. FOR MOREINFORMATION , SEE CLIENT ANNOUNCE MENT AT [email or web address] RISK RATIO LDL/HDL 1.58 RATIO <3.55 (test code = 2238) TSH, THIRD [id number] 06:32:46 Test Item Value Reference Range Interpretation Comments TSH, THIRD GENERATION (test >100.000 UIU/ML 0.400-4.100 H code = 2821) PSA, [id number] 06:32:46 Test Item Value Reference Range Interpretation Comments PSA, TOTAL 0.57 NG/ML See_Comment NOTE: Methodol ogy is Ezio (test code = Radhika Electroch emiluminescence 2606) Immunoassay tra ceable to WHO reference stand rea 96/760. UNLESS OTHERWIS E INDICATED, ALL TESTING PERFORM ED ATCLINICAL PATHOLOGY LABOR [employer]. [address] [place] [address] LABORATORY DIRE CTOR: LATOYA MCCALL M.D. CLIA NUMBER [id number] [place]. [id number] [A utomated message] The sy stem which generated this result transmitted ref erence range: <=4.00. The ref erence range was not used to int erpret this result as ryne l/abnormal. COMPREHENSIVE METABOLIC [id number] 04:57:27 Test Item Value Reference Range Interpretation Comments GLUCOSE (test code = 204 MG/DL 70-99 H 2216) BUN (test code = 17 MG/DL 6-20 2207) CREATININE (test 5.58 MG/DL 0.80-1.40 H code = 2213) eGFR (2020 CKD-EPI) 11 ML/MIN/1.73 >60 L (test code = 30222) CALC BUN/CREAT (test 3 RATIO 6-28 L code = 223) SODIUM (test code = 143 MEQ/L 378-565 1075) POTASSIUM (test code 3.8 MEQ/L 3.5-5.4 = 2228) CHLORIDE (test code 98 MEQ/L 95-107 = [...] PHOSPHATASE 72 U/L 40-123 (test code = 2203) AST (test code = 18 U/L 9-50 2217) ALT (test code = 15 U/L 5-50 2218) HEMOGLOBIN [id number] 03:24:27 Test Item Value Reference Range Interpretation Comments HEMOGLOBIN A1c (test code = 46077) 5.8 % 4.2-5.6 H CBC W/AUTO DIFF WITH [id number] 03:19:43 Test Item Value Reference Range Interpretation [...] RBCS 0.00 K/UL 0.00-0.11 (test code = 17455) CBC W/AUTO [id number] 00:00:00 Test Item Value Reference Range Interpretation [...] NUCLEATED RBCS (test code = 0.00 K/UL 42193) CBC W/AUTO [id number] 00:00:00 Test Item Value Reference Range Interpretation [...] NUCLEATED RBCS (test code = 0.00 K/UL 14706) CBC W/AUTO [id number] 00:00:00 Test Item Value Reference Range Interpretation [...] NUCLEATED RBCS (test code = 0.00 K/UL 50209) HEMOGLOBIN [id number] 00:00:00 Test Item Value Reference Range Interpretation Comments HEMOGLOBIN A1c (test code = 96752) 5.8 % HEMOGLOBIN [id number] 00:00:00 Test Item Value Reference Range Interpretation Comments HEMOGLOBIN A1c (test code = 00260) 5.8 % HEMOGLOBIN [id number] 00:00:00 Test Item Value Reference Range Interpretation Comments HEMOGLOBIN A1c (test code = 17826) 5.8 % COMPREHENSIVE METABOLIC [id number] 00:00:00 Test Item Value Reference Range Interpretation Comments GLUCOSE (test code = 2217) 204 MG/DL BUN (test code = 2208) 17 MG/DL CREATININE (test code = 2214) 5.58 MG/DL eGFR (2020 CKD-EPI) (test code 11 ML/MIN/1.73 = 28697) CALC BUN/CREAT (test code = 3 RATIO 2235) SODIUM (test code = 2231) 143 MEQ/L POTASSIUM (test code = 2228) 3.8 MEQ/L CHLORIDE (test code = 2215) 98 MEQ/L CARBON DIOXIDE (test code = 29 MEQ/L 220) CALCIUM (test code = 2209) 8.7 MG/DL PROTEIN, TOTAL (test code = 7.0 G/DL 2228) ALBUMIN (test code = 2201) 4.4 G/DL CALC GLOBULIN (test code = 2.6 G/DL 2240) CALC A/G RATIO (test code = 1.7 RATIO 2234) BILIRUBIN, TOTAL (test code = <0.2 MG/DL 2206) ALKALINE PHOSPHATASE (test 72 U/L code = 2204) AST (test code = 2218) 18 U/L ALT (test code = 2219) 15 U/L COMPREHENSIVE METABOLIC [id number] 00:00:00 Test Item Value Reference Range Interpretation Comments GLUCOSE (test code = 2217) 204 MG/DL BUN (test code = 2208) 17 MG/DL CREATININE (test code = 2214) 5.58 MG/DL eGFR (2020 CKD-EPI) (test code 11 ML/MIN/1.73 = 96742) CALC BUN/CREAT (test code = 3 RATIO [...] CALC GLOBULIN (test code = 2.6 G/DL 2240) CALC A/G RATIO (test code = 1.7 RATIO 2234) BILIRUBIN, TOTAL (test code = <0.2 MG/DL 2206) ALKALINE PHOSPHATASE (test 72 U/L code = 2204) AST (test code = 2218) 18 U/L ALT (test code = 2219) 15 U/L TSH, THIRD [id number] 00:00:00 Test Item Value Reference Range Interpretation Comments TSH, THIRD GENERATION (test >100.000 UIU/ML code = 2821) TSH, THIRD [id number] 00:00:00 Test Item Value Reference Range Interpretation Comments TSH, THIRD GENERATION (test >100.000 UIU/ML code = 2821) TSH, THIRD [id number] 00:00:00 Test Item Value Reference Range Interpretation Comments TSH, THIRD GENERATION (test >100.000 UIU/ML code = 2821) PSA, [id number] 00:00:00 Test Item Value Reference Range Interpretation Comments PSA, TOTAL (test code = 2606) 0.57 NG/ML PSA, [id number] 00:00:00 Test Item Value Reference Range Interpretation Comments PSA, TOTAL (test code = 2606) 0.57 NG/ML PSA, [id number] 00:00:00 Test Item Value Reference Range Interpretation Comments PSA, TOTAL (test code = 2606) 0.57 NG/ML - CT ABD PELVIS W/O [id number] 17:19:00 [facility] 1965 Sex: M Name: MEHRDAD RAMIREZ [facility] : 1965 Age/S: 56 / M [address] [facility] Unit #:[id number] Loc: [place] [address] Phys: Jacinto Simpson MD Acct: [id number] Dis Date: Status: REG REF PHONE #: [phone] Exam Date: 04/16/2022 1705 FAX #: Reason: RESP FAILURE EXAMS: CPT: [id number] CT ABD PELVIS W/O CONT [id number] CT abdomen and pelvis without contrast: HISTORY: End-stage renal disease on hemodialysis GI bleed TECHNIQUE: Axial images of the abdomen and pelvis are obtained onthe multidetector CT. The study is performed without intravenous contrast. No oral contrast was administered. Sagittal and coronal reconstructions are reviewed. CT DLP dose: 756mGy-cm. One or more of the following dose reduction techniques were used: Automated exposure control, adjustment of the mA and/or kV according to patient size, and/or iterative reconstruction. LOCATION: H54 Comparison study:None. FINDINGS: There are patchy linear bibasilar subsegmental atelectasis. The heart is mildly enlarged. No pericardial effusion. No pleural effusions. The liver is homogeneous, free of focal masses anddilated intrahepatic ducts. The gallbladder is unremarkable. The spleen is normal in size and contour. The stomach and duodenum appear unremarkable. The pancreas is morphologically normal. No mass, pancreatic duct dilatation or peripancreatic edema is visible. The adrenal glands are normal in size andcontour. The kidneys are normal in size and contour. Multiple small right renal cysts are identified. The dominant cyst measures 1.5 cm. No renal calculi are depicted. No hydronephrosis, perinephric fluid or perinephric stranding. No pathologic ureteral dilatation. The urinary bladder is unremarkable.No retroperitoneal lymphadenopathy is observed. The abdominal aorta is normal in caliber. No evidence of abdominal aortic aneurysm. The visualized bowel is unremarkable. Numerous sigmoid colonic diverticula are present. There is no pericolic inflammation. No PAGE 1 Signed Report (CONTINUED) Name: MEHRDAD RAMIREZ [facility] : 1965 Age/S: 56 / M [address] [facility] Unit #: [id number]: [place] [address] Phys: Jacinto Simpson MD Acct: [id number] Dis Date: Status: REG REF PHONE #: [phone] Exam Date: 04/16/2022 170 FAX #: Reason: RESP FAILURE EXAMS: CPT: [id number] CT ABD PELVIS W/O CONT 05572 (Continued) evidence of ascites. Abdominal wall is intact. No significantbony lesions. IMPRESSION: 1. No acute finding is seen in the abdomen the pelvis. 2. Left colonic diverticulosis. 3. Normal appendix seen. 4. Multiple small right renal cysts are present. These require no additional follow-up. at 1719 Reported and signed by: José Luis Escobar M.D. CC: Jacinto Pearson MD Technologist:Moreno Alvarez, RT(R) CTDI: DLP: Trnscb Date/Time: 04/16/2022 (171) [id number] Orig Print D/T: S: 04/16/2022 (5629) PAGE 2 Signed ReportCBC W/AUTO [id number] 05:14:00 Test Item Value Reference Range Interpretation Comments WHITE BLOOD CELL 9.3 K/mm3 3.5-11.0 N (test code = WBC) RED BLOOD CELL (test 2.48 M/mm3 4.70-6.10 L code = RBC) HEMOGLOBIN (test code 7.9 G/DL 12.3-15.9 L = HGB) HEMATOCRIT (test code 26.0 % 35.8-46.7 L = HCT) MEAN CELL VOLUME 104.8 Fl 86.3-98.9 H (test code = MCV) MEAN CELL HGB (test 31.9 pg 28.9-34.4 N code = MCH) MEAN CELL HGB 30.4 G/DL 32.1-34.5 L CONCETRATION (test code = MCHC) RED CELL DISTRIBUTION 15.1 SD 11.5-14.5 H WIDTH (test code = RDW) PLATELET COUNT (test 417 K/mm3 150-450 N code = PLT) MEAN PLATELET VOLUME 9.50 fL 7.0-9.6 N (test code = MPV) NEUTROPHIL % (test 90.8 % 40-76 H code = NT%) IMMATURE GRANULOCYTE 0.6 % 0.0-5.0 N % (test code = IG%) LYMPHOCYTE % (test 5.7 % 20.5-51.1 L code = LY%) MONOCYTE % (test code 2.7 % 1.7-9.3 N = MO%) EOSINOPHIL % (test 0.1 % 0.0-6.0 N code = EO%) BASOPHIL % (test code 0.1 % 0.0-2.0 N = BA%) NUCLEATED RBC % (test 0.0 /100WBC% 0.0-1.0 N code = NRBC%) NEUTROPHIL # (test 8.5 K/mm3 1.8-7.6 H code = NT#) IMMATURE GRANULOCYTE 0.06 x10 3/uL 0.00-0.03 H # (test code = IG#) LYMPHOCYTE # (test 0.5 K/mm3 0.6-3.0 L code = LY#) MONOCYTE # (test code 0.3 K/mm3 0.2-1.5 N = MO#) EOSINOPHIL # (test 0.0 K/mm3 0.0-0.4 N code = EO#) BASOPHIL # (test code 0.0 K/mm3 0.0-0.2 N = BA#) NUCLEATED RBC # (test 0.0 K/mm3 0.00-0.01 N code = NRBC#) MANUAL DIFF REQUIRED NO DIFF/SCN CRITERIA SLIDE R ENRIQUEW (test code = MDIFF) CONSISTA NT WITH AUTO DIFFERENTI AL. BASIC METABOLIC [id number] 03:59:00 Test Item Value Reference Range Interpretation Comments SODIUM (test code 137 mmol/L 134-147 N = NA) POTASSIUM (test 4.8 mmol/L 3.4-5.0 N code = K) CHLORIDE (test 100 mmol/L 100-108 N code = CL) CARBON DIOXIDE 23 mmol/L 21-32 N (test code = CO2) ANION GAP (test 14.0 GAP calc 4.0-15.0 N code = GAP) GLUCOSE (test code 263 MG/DL 70-110 H = GLU) BLOOD UREA 99 MG/DL 7-18 H NITROGEN (test code = BUN) GLOMERULAR 4 estGFR >60 L The Glomerular FILTRATION RATE Filtration R ate is a (test code = GFR) calculated parameterbased on serum Creatinin e, patient age and sex. GFR valuesless than 60 mL/min/1.73 squ are meters are apryl cative ofChronic Kidne y Disease. Values less than 15 mL/min/1.73squa re meters indicate Kidney failure. The calculation for GFR is based on the CK D-EPI (2020) calculat ion. This formulais race indifferent and is the recommended for [place] for GFRby the N [facility] Found[facility] on for Adults.The GFR will not calculate i f the sex is unknown or if thepatient's ag e is <18 years. CREATININE (test 12.3 MG/DL 0.8-1.3 H code = CREAT) CALCIUM (test code 7.6 MG/DL 8.5-10.1 L = CA) CBC W/AUTO DIFF WITH [id number] 09:42:23 Test Item Value Reference Range Interpretation [...] RBCS 0.00 K/UL 0.00-0.11 (test code = 04523) HEMOGLOBIN [id number] 09:27:39 Test Item Value Reference Range Interpretation Comments HEMOGLOBIN A1c (test code = 14747) 6.2 % 4.2-5.6 H TSH, THIRD [id number] 06:43:39 Test Item Value Reference Range Interpretation Comments TSH, THIRD GENERATION (test 82.000 UIU/ML 0.400-4.100 H code = 2821) HIV 1/2 4TH GEN, RFLX [id number] 05:21:13 Test Item Value Reference Range Interpretation Comments HIV 1/2 4TH GEN, RFLX CONF (test NON-REACTIVE NON-REACTIVE code = 3514) HEPATITIS PANEL, [id number] 05:21:13 Test Item Value Reference Range Interpretation Comments HEPATITIS A IgM (test NON-REACTIVE NON-REACTIVE code = 77075) HEPATITIS B CORE IgM NON-REACTIVE NON-REACTIVE (test code = 4644) HEPATITIS B SURF AG NON-REACTIVE NON-REACTIVE (test code = 2739) HEPATITIS C ANTIBODY NON-REACTIVE NON-REACTIVE (test code = 4675) INTERPRETATION (NOTE) Hepatitis A HEPATITIS A: (test serology shows no code = 2552) evidence of acu te hepatitis A. INTERPRETATION (NOTE) Hepatitis B HEPATITIS B: (test serology shows no code = 21358) evidence of ac marty hepatitis B and no indication of exposure to hepatitis B vir us in the previous si xto eight months. INTERPRETATION (NOTE) Hepatitis C HEPATITIS C: (test serology shows no code = 05924) evidence of ex posure to hepatitisC v irus at this time. I t can take up to 12 m onths after exposure tothe hepatitis C vir us for antibodies to become detectab le in the blood in ce rtain patients. UNLES S OTHERWISE INDIC ATED, ALL TESTING PERFORMED [facility], [place]. [address] [place] [address] [facility] DIRECTOR: LATOYA MCCALL M.D. LOSIA NUMBER [id number] [place] [id number] LIPID [id number] 03:30:59 Test Item Value Reference Range Interpretation [...] MOREINFORMATION , SEE CLIENT ANNOUNCE MENT AT [email or web address] CalcLDL-C RISK RATIO LDL/HDL (NOTE) RATIO <3.55 UNABLE T O CALCULATE (test code = 2238) COMPREHENSIVE METABOLIC [id number] 03:30:59 Test Item Value Reference Range Interpretation Comments GLUCOSE (test code = 117 MG/DL 70-99 H 2216) BUN (test code = 54 MG/DL 6-20 H 2207) CREATININE (test 11.27 MG/DL 0.80-1.40 H code = 2214) eGFR (2020 CKD-EPI) 5 ML/MIN/1.73 >60 L (test code = 30596) CALC BUN/CREAT (test 5 RATIO 6-28 L code = 2235) SODIUM (test code = 139 MEQ/L 438-766 9397) POTASSIUM (test code 4.2 MEQ/L 3.5-5.4 = 2227) CHLORIDE (test code 95 MEQ/L 95-107 = 221) CARBON DIOXIDE (test 23 MEQ/L 19-31 code [...] = 8 U/L 5-50 9) CBC W/AUTO [id number] 00:00:00 Test Item Value Reference Range Interpretation [...] NUCLEATED RBCS (test code = 0.00 K/UL 67167) CBC W/AUTO [id number] 00:00:00 Test Item Value Reference Range Interpretation [...] NUCLEATED RBCS (test code = 0.00 K/UL 18245) CBC W/AUTO [id number] 00:00:00 Test Item Value Reference Range Interpretation [...] NUCLEATED RBCS (test code = 0.00 K/UL 89698) HEMOGLOBIN [id number] 00:00:00 Test Item Value Reference Range Interpretation Comments HEMOGLOBIN A1c (test code = 74501) 6.2 % HEMOGLOBIN [id number] 00:00:00 Test Item Value Reference Range Interpretation Comments HEMOGLOBIN A1c (test code = 13989) 6.2 % HEMOGLOBIN [id number] 00:00:00 Test Item Value Reference Range Interpretation Comments HEMOGLOBIN A1c (test code = 47743) 6.2 % LIPID [id number] 00:00:00 Test Item Value Reference Range Interpretation Comments CHOLESTEROL (test code = 2210) 196 MG/DL TRIGLYCERIDES (test code = 2232) 486 MG/DL HDL CHOLESTEROL (test code = 44 MG/DL 2220) CALC LDL CHOL (test code = 2237) (NOTE) MG/DL RISK RATIO LDL/HDL (test code = (NOTE) RATIO 2238) LIPID [id number] 00:00:00 Test Item Value Reference Range Interpretation Comments CHOLESTEROL (test code = 2210) 196 MG/DL TRIGLYCERIDES (test code = 2232) 486 MG/DL HDL CHOLESTEROL (test code = 44 MG/DL 2220) CALC LDL CHOL (test code = 2237) (NOTE) MG/DL RISK RATIO LDL/HDL (test code = (NOTE) RATIO 2238) COMPREHENSIVE METABOLIC [id number] 00:00:00 Test Item Value Reference Range Interpretation Comments GLUCOSE (test code = 2217) 117 MG/DL BUN (test code = 2208) 54 MG/DL CREATININE (test code = 2214) 11.27 MG/DL eGFR (2020 CKD-EPI) (test code 5 ML/MIN/1.73 = 47642) CALC BUN/CREAT (test code = 5 RATIO [...] code = 2219) 8 U/L COMPREHENSIVE METABOLIC [id number] 00:00:00 Test Item Value Reference Range Interpretation Comments GLUCOSE (test code = 2217) 117 MG/DL BUN (test code = 2208) 54 MG/DL CREATININE (test code = 2214) 11.27 MG/DL eGFR (2020 CKD-EPI) (test code 5 ML/MIN/1.73 = 60041) CALC BUN/CREAT (test code = 5 RATIO [...] ALT (test code = 2219) 8 U/L [id number] 00:00:00 Test Item Value Reference Range Interpretation Comments TSH, THIRD GENERATION (test 82.000 UIU/ML code = 2821) [id number] 00:00:00 Test Item Value Reference Range Interpretation Comments TSH, THIRD GENERATION (test 82.000 UIU/ML code = 2821) [id number] 00:00:00 Test Item Value Reference Range Interpretation Comments TSH, THIRD GENERATION (test 82.000 UIU/ML code = 2821) HIV AB/AG COMBO RFLX [id number] 00:00:00 Test Item Value Reference Range Interpretation Comments HIV 1/2 4TH GEN, RFLX CONF (test NON-REACTIVE code = 3514) HIV AB/AG COMBO RFLX [id number] 00:00:00 Test Item Value Reference Range Interpretation Comments HIV 1/2 4TH GEN, RFLX CONF (test NON-REACTIVE code = 3514) ACUTE HEPATITIS [id number] 00:00:00 Test Item Value Reference Range Interpretation Comments HEPATITIS A IgM (test code = NON-REACTIVE 29629) HEPATITIS B CORE IgM (test code NON-REACTIVE = 4644) HEPATITIS B SURF AG (test code = NON-REACTIVE 2739) HEPATITIS C ANTIBODY (test code NON-REACTIVE = 4675) INTERPRETATION HEPATITIS A: (NOTE) (test code = 2552) INTERPRETATION HEPATITIS B: (NOTE) (test code = 38329) INTERPRETATION HEPATITIS C: (NOTE) (test code = 00067) ACUTE HEPATITIS [id number] 00:00:00 Test Item Value Reference Range Interpretation Comments HEPATITIS A IgM (test code = NON-REACTIVE 39722) HEPATITIS B CORE IgM (test code NON-REACTIVE = 4644) HEPATITIS B SURF AG (test code = NON-REACTIVE 2739) HEPATITIS C ANTIBODY (test code NON-REACTIVE = 4675) INTERPRETATION HEPATITIS A: (NOTE) (test code = 2552) INTERPRETATION HEPATITIS B: (NOTE) (test code = 13574) INTERPRETATION HEPATITIS C: (NOTE) (test code = 48972) CBC W/AUTO [id number] 00:00:00 Test Item Value Reference Range Interpretation [...] NUCLEATED RBCS (test code = 0.00 K/UL 00823) CBC W/AUTO [id number] 00:00:00 Test Item Value Reference Range Interpretation [...] NUCLEATED RBCS (test code = 0.00 K/UL 43415) CBC W/AUTO [id number] 00:00:00 Test Item Value Reference Range Interpretation [...] NUCLEATED RBCS (test code = 0.00 K/UL 69741) HEMOGLOBIN [id number] 00:00:00 Test Item Value Reference Range Interpretation Comments HEMOGLOBIN A1c (test code = 30712) 6.2 % HEMOGLOBIN [id number] 00:00:00 Test Item Value Reference Range Interpretation Comments HEMOGLOBIN A1c (test code = 18834) 6.2 % HEMOGLOBIN [id number] 00:00:00 Test Item Value Reference Range Interpretation Comments HEMOGLOBIN A1c (test code = 18449) 6.2 % LIPID [id number] 00:00:00 Test Item Value Reference Range Interpretation Comments CHOLESTEROL (test code = 2210) 196 MG/DL TRIGLYCERIDES (test code = 2232) 486 MG/DL HDL CHOLESTEROL (test code = 44 MG/DL 2220) CALC LDL CHOL (test code = 2237) (NOTE) MG/DL RISK RATIO LDL/HDL (test code = (NOTE) RATIO 2238) LIPID [id number] 00:00:00 Test Item Value Reference Range Interpretation Comments CHOLESTEROL (test code = 2210) 196 MG/DL TRIGLYCERIDES (test code = 2232) 486 MG/DL HDL CHOLESTEROL (test code = 44 MG/DL 2220) CALC LDL CHOL (test code = 2237) (NOTE) MG/DL RISK RATIO LDL/HDL (test code = (NOTE) RATIO 2238) COMPREHENSIVE METABOLIC [id number] 00:00:00 Test Item Value Reference Range Interpretation Comments GLUCOSE (test code = 2217) 117 MG/DL BUN (test code = 2208) 54 MG/DL CREATININE (test code = 2214) 11.27 MG/DL eGFR (2020 CKD-EPI) (test code 5 ML/MIN/1.73 = 77022) CALC BUN/CREAT (test code = 5 RATIO [...] code = 2219) 8 U/L COMPREHENSIVE METABOLIC [id number] 00:00:00 Test Item Value Reference Range Interpretation Comments GLUCOSE (test code = 2217) 117 MG/DL BUN (test code = 2208) 54 MG/DL CREATININE (test code = 2214) 11.27 MG/DL eGFR (2020 CKD-EPI) (test code 5 ML/MIN/1.73 = 48610) CALC BUN/CREAT (test code = 5 RATIO [...] ALT (test code = 2219) 8 U/L [id number] 00:00:00 Test Item Value Reference Range Interpretation Comments TSH, THIRD GENERATION (test 82.000 UIU/ML code = 2821) [id number] 00:00:00 Test Item Value Reference Range Interpretation Comments TSH, THIRD GENERATION (test 82.000 UIU/ML code = 2821) [id number] 00:00:00 Test Item Value Reference Range Interpretation Comments TSH, THIRD GENERATION (test 82.000 UIU/ML code = 2821) HIV AB/AG COMBO RFLX [id number] 00:00:00 Test Item Value Reference Range Interpretation Comments HIV 1/2 4TH GEN, RFLX CONF (test NON-REACTIVE code = 3514) HIV AB/AG COMBO RFLX [id number] 00:00:00 Test Item Value Reference Range Interpretation Comments HIV 1/2 4TH GEN, RFLX CONF (test NON-REACTIVE code = 3514) ACUTE HEPATITIS [id number] 00:00:00 Test Item Value Reference Range Interpretation Comments HEPATITIS A IgM (test code = NON-REACTIVE 19135) HEPATITIS B CORE IgM (test code NON-REACTIVE = 2492) HEPATITIS B SURF AG (test code = NON-REACTIVE 4468) HEPATITIS C ANTIBODY (test code NON-REACTIVE = 4675) INTERPRETATION HEPATITIS A: (NOTE) (test code = 2552) INTERPRETATION HEPATITIS B: (NOTE) (test code = 73689) INTERPRETATION HEPATITIS C: (NOTE) (test code = 33739) ACUTE HEPATITIS [id number] 00:00:00 Test Item Value Reference Range Interpretation Comments HEPATITIS A IgM (test code = NON-REACTIVE 93067) HEPATITIS B CORE IgM (test code NON-REACTIVE = 4644) HEPATITIS B SURF AG (test code = NON-REACTIVE 8069) HEPATITIS C ANTIBODY (test code NON-REACTIVE = 4675) INTERPRETATION HEPATITIS A: (NOTE) (test code = 2552) INTERPRETATION HEPATITIS B: (NOTE) (test code = 21614) INTERPRETATION HEPATITIS C: (NOTE) (test code = 49635) CBC W/AUTO [id number] 00:00:00 Test Item Value Reference Range Interpretation [...] RBCS (test code = 0.00 K/UL 45087) CBC W/AUTO [id number] 00:00:00 Test Item Value Reference Range Interpretation [...] NUCLEATED RBCS (test code = 0.00 K/UL 63984) CBC W/AUTO [id number] 00:00:00 Test Item Value Reference Range Interpretation [...] NUCLEATED RBCS (test code = 0.00 K/UL 43926) CBC W/AUTO [id number] 00:00:00 Test Item Value Reference Range Interpretation [...] NUCLEATED RBCS (test code = 0.00 K/UL 33754) CBC W/AUTO [id number] 00:00:00 Test Item Value Reference Range Interpretation [...] NUCLEATED RBCS (test code = 0.00 K/UL 26898) HEMOGLOBIN [id number] 00:00:00 Test Item Value Reference Range Interpretation Comments HEMOGLOBIN A1c (test code = 50785) 6.2 % HEMOGLOBIN [id number] 00:00:00 Test Item Value Reference Range Interpretation Comments HEMOGLOBIN A1c (test code = 32071) 6.2 % HEMOGLOBIN [id number] 00:00:00 Test Item Value Reference Range Interpretation Comments HEMOGLOBIN A1c (test code = 31169) 6.2 % LIPID [id number] 00:00:00 Test Item Value Reference Range Interpretation Comments CHOLESTEROL (test code = 2210) 196 MG/DL TRIGLYCERIDES (test code = 2232) 486 MG/DL HDL CHOLESTEROL (test code = 44 MG/DL 2220) CALC LDL CHOL (test code = 2237) (NOTE) MG/DL RISK RATIO LDL/HDL (test code = (NOTE) RATIO 2238) LIPID [id number] 00:00:00 Test Item Value Reference Range Interpretation Comments CHOLESTEROL (test code = 2210) 196 MG/DL TRIGLYCERIDES (test code = 2232) 486 MG/DL HDL CHOLESTEROL (test code = 44 MG/DL 2220) CALC LDL CHOL (test code = 2237) (NOTE) MG/DL RISK RATIO LDL/HDL (test code = (NOTE) RATIO 2238) COMPREHENSIVE METABOLIC [id number] 00:00:00 Test Item Value Reference Range Interpretation Comments GLUCOSE (test code = 2217) 117 MG/DL BUN (test code = 2208) 54 MG/DL CREATININE (test code = 2214) 11.27 MG/DL eGFR (2020 CKD-EPI) (test code 5 ML/MIN/1.73 = 04914) CALC BUN/CREAT (test code = 5 RATIO [...] code = 2219) 8 U/L COMPREHENSIVE METABOLIC [id number] 00:00:00 Test Item Value Reference Range Interpretation Comments GLUCOSE (test code = 2217) 117 MG/DL BUN (test code = 2208) 54 MG/DL CREATININE (test code = 2214) 11.27 MG/DL eGFR (2020 CKD-EPI) (test code 5 ML/MIN/1.73 = 60446) CALC BUN/CREAT (test code = 5 RATIO [...] ALT (test code = 2219) 8 U/L [id number] 00:00:00 Test Item Value Reference Range Interpretation Comments TSH, THIRD GENERATION (test 82.000 UIU/ML code = 2821) [id number] 00:00:00 Test Item Value Reference Range Interpretation Comments TSH, THIRD GENERATION (test 82.000 UIU/ML code = 2821) [id number] 00:00:00 Test Item Value Reference Range Interpretation Comments TSH, THIRD GENERATION (test 82.000 UIU/ML code = 2821) HIV AB/AG COMBO RFLX [id number] 00:00:00 Test Item Value Reference Range Interpretation Comments HIV 1/2 4TH GEN, RFLX CONF (test NON-REACTIVE code = 3514) HIV AB/AG COMBO RFLX [id number] 00:00:00 Test Item Value Reference Range Interpretation Comments HIV 1/2 4TH GEN, RFLX CONF (test NON-REACTIVE code = 3514) ACUTE HEPATITIS [id number] 00:00:00 Test Item Value Reference Range Interpretation Comments HEPATITIS A IgM (test code = NON-REACTIVE 83482) HEPATITIS B CORE IgM (test code NON-REACTIVE = 2144) HEPATITIS B SURF AG (test code = NON-REACTIVE 7299) HEPATITIS C ANTIBODY (test code NON-REACTIVE = 4105) INTERPRETATION HEPATITIS A: (NOTE) (test code = 2552) INTERPRETATION HEPATITIS B: (NOTE) (test code = 30254) INTERPRETATION HEPATITIS C: (NOTE) (test code = 80951) ACUTE HEPATITIS [id number] 00:00:00 Test Item Value Reference Range Interpretation Comments HEPATITIS A IgM (test code = NON-REACTIVE 29917) HEPATITIS B CORE IgM (test code NON-REACTIVE = 4644) HEPATITIS B SURF AG (test code = NON-REACTIVE 7619) HEPATITIS C ANTIBODY (test code NON-REACTIVE = 9589) INTERPRETATION HEPATITIS A: (NOTE) (test code = 2552) INTERPRETATION HEPATITIS B: (NOTE) (test code = 31760) INTERPRETATION HEPATITIS C: (NOTE) (test code = 30091) HEMOGLOBIN [id number] 00:00:00 Test Item Value Reference Range Interpretation Comments HEMOGLOBIN A1c (test code = 08675) 6.2 % HEMOGLOBIN [id number] 00:00:00 Test Item Value Reference Range Interpretation Comments HEMOGLOBIN A1c (test code = 52711) 6.2 % LIPID [id number] 00:00:00 Test Item Value Reference Range Interpretation Comments CHOLESTEROL (test code = 2210) 196 MG/DL TRIGLYCERIDES (test code = 2232) 486 MG/DL HDL CHOLESTEROL (test code = 44 MG/DL 0) CALC LDL CHOL (test code = 2237) (NOTE) MG/DL RISK RATIO LDL/HDL (test code = (NOTE) RATIO 2238) COMPREHENSIVE METABOLIC [id number] 00:00:00 Test Item Value Reference Range Interpretation Comments GLUCOSE (test code = 2217) 117 MG/DL BUN (test code = 2208) 54 MG/DL CREATININE (test code = 2214) 11.27 MG/DL eGFR (2020 CKD-EPI) (test code 5 ML/MIN/1.73 = 44377) CALC BUN/CREAT (test code = 5 RATIO [...] code = 2219) 8 U/L CBC W/AUTO [id number] 00:00:00 Test Item Value Reference Range Interpretation [...] NUCLEATED RBCS (test code = 0.00 K/UL 71093) CBC W/AUTO [id number] 00:00:00 Test Item Value Reference Range Interpretation [...] NUCLEATED RBCS (test code = 0.00 K/UL 10442) CBC W/AUTO [id number] 00:00:00 Test Item Value Reference Range Interpretation [...] NUCLEATED RBCS (test code = 0.00 K/UL 41095) [id number] 00:00:00 Test Item Value Reference Range Interpretation Comments TSH, THIRD GENERATION (test 82.000 UIU/ML code = 2821) HEMOGLOBIN [id number] 00:00:00 Test Item Value Reference Range Interpretation Comments HEMOGLOBIN A1c (test code = 02632) 6.2 % HEMOGLOBIN [id number] 00:00:00 Test Item Value Reference Range Interpretation Comments HEMOGLOBIN A1c (test code = 72742) 6.2 % [id number] 00:00:00 Test Item Value Reference Range Interpretation Comments TSH, THIRD GENERATION (test 82.000 UIU/ML code = 2821) HEMOGLOBIN [id number] 00:00:00 Test Item Value Reference Range Interpretation Comments HEMOGLOBIN A1c (test code = 48620) 6.2 % HIV AB/AG COMBO RFLX [id number] 00:00:00 Test Item Value Reference Range Interpretation Comments HIV 1/2 4TH GEN, RFLX CONF (test NON-REACTIVE code = 3514) LIPID [id number] 00:00:00 Test Item Value Reference Range Interpretation Comments CHOLESTEROL (test code = 2210) 196 MG/DL TRIGLYCERIDES (test code = 2232) 486 MG/DL HDL CHOLESTEROL (test code = 44 MG/DL 2220) CALC LDL CHOL (test code = 2237) (NOTE) MG/DL RISK RATIO LDL/HDL (test code = (NOTE) RATIO 2238) LIPID [id number] 00:00:00 Test Item Value Reference Range Interpretation Comments CHOLESTEROL (test code = 2210) 196 MG/DL TRIGLYCERIDES (test code = 2232) 486 MG/DL HDL CHOLESTEROL (test code = 44 MG/DL 2220) CALC LDL CHOL (test code = 2237) (NOTE) MG/DL RISK RATIO LDL/HDL (test code = (NOTE) RATIO 2238) ACUTE HEPATITIS [id number] 00:00:00 Test Item Value Reference Range Interpretation Comments HEPATITIS A IgM (test code = NON-REACTIVE 54499) HEPATITIS B CORE IgM (test code NON-REACTIVE = 4644) HEPATITIS B SURF AG (test code = NON-REACTIVE 8644) HEPATITIS C ANTIBODY (test code NON-REACTIVE = 4611) INTERPRETATION HEPATITIS A: (NOTE) (test code = 2552) INTERPRETATION HEPATITIS B: (NOTE) (test code = 05585) INTERPRETATION HEPATITIS C: (NOTE) (test code = 14988) COMPREHENSIVE METABOLIC [id number] 00:00:00 Test Item Value Reference Range Interpretation Comments GLUCOSE (test code = 2217) 117 MG/DL BUN (test code = 2208) 54 MG/DL CREATININE (test code = 2214) 11.27 MG/DL eGFR (2020 CKD-EPI) (test code 5 ML/MIN/1.73 = 58112) CALC BUN/CREAT (test code = 5 RATIO [...] code = 2219) 8 U/L COMPREHENSIVE METABOLIC [id number] 00:00:00 Test Item Value Reference Range Interpretation Comments GLUCOSE (test code = 2217) 117 MG/DL BUN (test code = 2208) 54 MG/DL CREATININE (test code = 2214) 11.27 MG/DL eGFR (2020 CKD-EPI) (test code 5 ML/MIN/1.73 = 59463) CALC BUN/CREAT (test code = 5 RATIO [...] ALT (test code = 2219) 8 U/L [id number] 00:00:00 Test Item Value Reference Range Interpretation Comments TSH, THIRD GENERATION (test 82.000 UIU/ML code = 2821) [id number] 00:00:00 Test Item Value Reference Range Interpretation Comments TSH, THIRD GENERATION (test 82.000 UIU/ML code = 2821) [id number] 00:00:00 Test Item Value Reference Range Interpretation Comments TSH, THIRD GENERATION (test 82.000 UIU/ML code = 2821) HIV AB/AG COMBO RFLX [id number] 00:00:00 Test Item Value Reference Range Interpretation Comments HIV 1/2 4TH GEN, RFLX CONF (test NON-REACTIVE code = 3514) HIV AB/AG COMBO RFLX [id number] 00:00:00 Test Item Value Reference Range Interpretation Comments HIV 1/2 4TH GEN, RFLX CONF (test NON-REACTIVE code = 3514) ACUTE HEPATITIS [id number] 00:00:00 Test Item Value Reference Range Interpretation Comments HEPATITIS A IgM (test code = NON-REACTIVE 63480) HEPATITIS B CORE IgM (test code NON-REACTIVE = 4644) HEPATITIS B SURF AG (test code = NON-REACTIVE 2739) HEPATITIS C ANTIBODY (test code NON-REACTIVE = 4675) INTERPRETATION HEPATITIS A: (NOTE) (test code = 2552) INTERPRETATION HEPATITIS B: (NOTE) (test code = 85988) INTERPRETATION HEPATITIS C: (NOTE) (test code = 79852) ACUTE HEPATITIS [id number] 00:00:00 Test Item Value Reference Range Interpretation Comments HEPATITIS A IgM (test code = NON-REACTIVE 16170) HEPATITIS B CORE IgM (test code NON-REACTIVE = 4644) HEPATITIS B SURF AG (test code = NON-REACTIVE 2739) HEPATITIS C ANTIBODY (test code NON-REACTIVE = 4675) INTERPRETATION HEPATITIS A: (NOTE) (test code = 2552) INTERPRETATION HEPATITIS B: (NOTE) (test code = 08559) INTERPRETATION HEPATITIS C: (NOTE) (test code = 17561) CBC W/AUTO [id number] 00:00:00 Test Item Value Reference Range Interpretation [...] NUCLEATED RBCS (test code = 0.00 K/UL 11531) CBC W/AUTO [id number] 00:00:00 Test Item Value Reference Range Interpretation [...] NUCLEATED RBCS (test code = 0.00 K/UL 80711) CBC W/AUTO [id number] 00:00:00 Test Item Value Reference Range Interpretation [...] NUCLEATED RBCS (test code = 0.00 K/UL 53410) HEMOGLOBIN [id number] 00:00:00 Test Item Value Reference Range Interpretation Comments HEMOGLOBIN A1c (test code = 94741) 6.2 % HEMOGLOBIN [id number] 00:00:00 Test Item Value Reference Range Interpretation Comments HEMOGLOBIN A1c (test code = 13784) 6.2 % HEMOGLOBIN [id number] 00:00:00 Test Item Value Reference Range Interpretation Comments HEMOGLOBIN A1c (test code = 41917) 6.2 % LIPID [id number] 00:00:00 Test Item Value Reference Range Interpretation Comments CHOLESTEROL (test code = 2210) 196 MG/DL TRIGLYCERIDES (test code = 2232) 486 MG/DL HDL CHOLESTEROL (test code = 44 MG/DL 2220) CALC LDL CHOL (test code = 2237) (NOTE) MG/DL RISK RATIO LDL/HDL (test code = (NOTE) RATIO 2238) LIPID [id number] 00:00:00 Test Item Value Reference Range Interpretation Comments CHOLESTEROL (test code = 2210) 196 MG/DL TRIGLYCERIDES (test code = 2232) 486 MG/DL HDL CHOLESTEROL (test code = 44 MG/DL 2220) CALC LDL CHOL (test code = 2237) (NOTE) MG/DL RISK RATIO LDL/HDL (test code = (NOTE) RATIO 2238) COMPREHENSIVE METABOLIC [id number] 00:00:00 Test Item Value Reference Range Interpretation Comments GLUCOSE (test code = 2217) 117 MG/DL BUN (test code = 2208) 54 MG/DL CREATININE (test code = 2214) 11.27 MG/DL eGFR (2020 CKD-EPI) (test code 5 ML/MIN/1.73 = 25476) CALC BUN/CREAT (test code = 5 RATIO [...] code = 2219) 8 U/L COMPREHENSIVE METABOLIC [id number] 00:00:00 Test Item Value Reference Range Interpretation Comments GLUCOSE (test code = 2217) 117 MG/DL BUN (test code = 2208) 54 MG/DL CREATININE (test code = 2214) 11.27 MG/DL eGFR (2020 CKD-EPI) (test code 5 ML/MIN/1.73 = 82247) CALC BUN/CREAT (test code = 5 RATIO [...] ALT (test code = 2219) 8 U/L [id number] 00:00:00 Test Item Value Reference Range Interpretation Comments TSH, THIRD GENERATION (test 82.000 UIU/ML code = 2821) [id number] 00:00:00 Test Item Value Reference Range Interpretation Comments TSH, THIRD GENERATION (test 82.000 UIU/ML code = 2821) [id number] 00:00:00 Test Item Value Reference Range Interpretation Comments TSH, THIRD GENERATION (test 82.000 UIU/ML code = 2821) HIV AB/AG COMBO RFLX [id number] 00:00:00 Test Item Value Reference Range Interpretation Comments HIV 1/2 4TH GEN, RFLX CONF (test NON-REACTIVE code = 3514) HIV AB/AG COMBO RFLX [id number] 00:00:00 Test Item Value Reference Range Interpretation Comments HIV 1/2 4TH GEN, RFLX CONF (test NON-REACTIVE code = 3514) ACUTE HEPATITIS [id number] 00:00:00 Test Item Value Reference Range Interpretation Comments HEPATITIS A IgM (test code = NON-REACTIVE 10434) HEPATITIS B CORE IgM (test code NON-REACTIVE = 4644) HEPATITIS B SURF AG (test code = NON-REACTIVE 2739) HEPATITIS C ANTIBODY (test code NON-REACTIVE = 4675) INTERPRETATION HEPATITIS A: (NOTE) (test code = 2552) INTERPRETATION HEPATITIS B: (NOTE) (test code = 92840) INTERPRETATION HEPATITIS C: (NOTE) (test code = 03103) ACUTE HEPATITIS [id number] 00:00:00 Test Item Value Reference Range Interpretation Comments HEPATITIS A IgM (test code = NON-REACTIVE 15607) HEPATITIS B CORE IgM (test code NON-REACTIVE = 4644) HEPATITIS B SURF AG (test code = NON-REACTIVE 2739) HEPATITIS C ANTIBODY (test code NON-REACTIVE = 4675) INTERPRETATION HEPATITIS A: (NOTE) (test code = 2552) INTERPRETATION HEPATITIS B: (NOTE) (test code = 71318) INTERPRETATION HEPATITIS C: (NOTE) (test code = 96815) CBC W/AUTO [id number] 00:00:00 Test Item Value Reference Range Interpretation [...] NUCLEATED RBCS (test code = 0.00 K/UL 39687) CBC W/AUTO [id number] 00:00:00 Test Item Value Reference Range Interpretation [...] NUCLEATED RBCS (test code = 0.00 K/UL 99027) CBC W/AUTO [id number] 00:00:00 Test Item Value Reference Range Interpretation [...] NUCLEATED RBCS (test code = 0.00 K/UL 99877) HEMOGLOBIN [id number] 00:00:00 Test Item Value Reference Range Interpretation Comments HEMOGLOBIN A1c (test code = 31860) 6.2 % HEMOGLOBIN [id number] 00:00:00 Test Item Value Reference Range Interpretation Comments HEMOGLOBIN A1c (test code = 37638) 6.2 % HEMOGLOBIN [id number] 00:00:00 Test Item Value Reference Range Interpretation Comments HEMOGLOBIN A1c (test code = 98029) 6.2 % LIPID [id number] 00:00:00 Test Item Value Reference Range Interpretation Comments CHOLESTEROL (test code = 2210) 196 MG/DL TRIGLYCERIDES (test code = 2232) 486 MG/DL HDL CHOLESTEROL (test code = 44 MG/DL 2220) CALC LDL CHOL (test code = 2237) (NOTE) MG/DL RISK RATIO LDL/HDL (test code = (NOTE) RATIO 2238) LIPID [id number] 00:00:00 Test Item Value Reference Range Interpretation Comments CHOLESTEROL (test code = 2210) 196 MG/DL TRIGLYCERIDES (test code = 2232) 486 MG/DL HDL CHOLESTEROL (test code = 44 MG/DL 2220) CALC LDL CHOL (test code = 2237) (NOTE) MG/DL RISK RATIO LDL/HDL (test code = (NOTE) RATIO 2238) COMPREHENSIVE METABOLIC [id number] 00:00:00 Test Item Value Reference Range Interpretation Comments GLUCOSE (test code = 2217) 117 MG/DL BUN (test code = 2208) 54 MG/DL CREATININE (test code = 2214) 11.27 MG/DL eGFR (2020 CKD-EPI) (test code 5 ML/MIN/1.73 = 01144) CALC BUN/CREAT (test code = 5 RATIO [...] code = 2219) 8 U/L COMPREHENSIVE METABOLIC [id number] 00:00:00 Test Item Value Reference Range Interpretation Comments GLUCOSE (test code = 2217) 117 MG/DL BUN (test code = 2208) 54 MG/DL CREATININE (test code = 2214) 11.27 MG/DL eGFR (2020 CKD-EPI) (test code 5 ML/MIN/1.73 = 60190) CALC BUN/CREAT (test code = 5 RATIO [...] ALT (test code = 2219) 8 U/L [id number] 00:00:00 Test Item Value Reference Range Interpretation Comments TSH, THIRD GENERATION (test 82.000 UIU/ML code = 2821) 00:00:00 Test Item Value Reference Range Interpretation Comments TSH, THIRD GENERATION (test 82.000 UIU/ML code = 2821) [id number] 00:00:00 Test Item Value Reference Range Interpretation Comments TSH, THIRD GENERATION (test 82.000 UIU/ML code = 2821) HIV AB/AG COMBO RFLX [id number] 00:00:00 Test Item Value Reference Range Interpretation Comments HIV 1/2 4TH GEN, RFLX CONF (test NON-REACTIVE code = 3514) HIV AB/AG COMBO RFLX [id number] 00:00:00 Test Item Value Reference Range Interpretation Comments HIV 1/2 4TH GEN, RFLX CONF (test NON-REACTIVE code = 3514) ACUTE HEPATITIS [id number] 00:00:00 Test Item Value Reference Range Interpretation Comments HEPATITIS A IgM (test code = NON-REACTIVE 52928) HEPATITIS B CORE IgM (test code NON-REACTIVE = 9544) HEPATITIS B SURF AG (test code = NON-REACTIVE 8529) HEPATITIS C ANTIBODY (test code NON-REACTIVE = 2545) INTERPRETATION HEPATITIS A: (NOTE) (test code = 2552) INTERPRETATION HEPATITIS B: (NOTE) (test code = 79231) INTERPRETATION HEPATITIS C: (NOTE) (test code = 64386) ACUTE HEPATITIS [id number] 00:00:00 Test Item Value Reference Range Interpretation Comments HEPATITIS A IgM (test code = NON-REACTIVE 64335) HEPATITIS B CORE IgM (test code NON-REACTIVE = 4644) HEPATITIS B SURF AG (test code = NON-REACTIVE 0919) HEPATITIS C ANTIBODY (test code NON-REACTIVE = 4675) INTERPRETATION HEPATITIS A: (NOTE) (test code = 2552) INTERPRETATION HEPATITIS B: (NOTE) (test code = 68908) INTERPRETATION HEPATITIS C: (NOTE) (test code = 93697) CBC W/AUTO [id number] 00:00:00 Test Item Value Reference Range Interpretation [...] NUCLEATED RBCS (test code = 0.00 K/UL 01515) CBC W/AUTO [id number] 00:00:00 Test Item Value Reference Range Interpretation [...] NUCLEATED RBCS (test code = 0.00 K/UL 35856) CBC W/AUTO [id number] 00:00:00 Test Item Value Reference Range Interpretation [...] NUCLEATED RBCS (test code = 0.00 K/UL 55326) HEMOGLOBIN [id number] 00:00:00 Test Item Value Reference Range Interpretation Comments HEMOGLOBIN A1c (test code = 47420) 6.2 % HEMOGLOBIN [id number] 00:00:00 Test Item Value Reference Range Interpretation Comments HEMOGLOBIN A1c (test code = 53177) 6.2 % HEMOGLOBIN [id number] 00:00:00 Test Item Value Reference Range Interpretation Comments HEMOGLOBIN A1c (test code = 92055) 6.2 % LIPID [id number] 00:00:00 Test Item Value Reference Range Interpretation Comments CHOLESTEROL (test code = 2210) 196 MG/DL TRIGLYCERIDES (test code = 2232) 486 MG/DL HDL CHOLESTEROL (test code = 44 MG/DL 2220) CALC LDL CHOL (test code = 2237) (NOTE) MG/DL RISK RATIO LDL/HDL (test code = (NOTE) RATIO 2238) LIPID [id number] 00:00:00 Test Item Value Reference Range Interpretation Comments CHOLESTEROL (test code = 2210) 196 MG/DL TRIGLYCERIDES (test code = 2232) 486 MG/DL HDL CHOLESTEROL (test code = 44 MG/DL 2220) CALC LDL CHOL (test code = 2237) (NOTE) MG/DL RISK RATIO LDL/HDL (test code = (NOTE) RATIO 2238) COMPREHENSIVE METABOLIC [id number] 00:00:00 Test Item Value Reference Range Interpretation Comments GLUCOSE (test code = 2217) 117 MG/DL BUN (test code = 2208) 54 MG/DL CREATININE (test code = 2214) 11.27 MG/DL eGFR (2020 CKD-EPI) (test code 5 ML/MIN/1.73 = 17373) CALC BUN/CREAT (test code = 5 RATIO [...] code = 2219) 8 U/L COMPREHENSIVE METABOLIC [id number] 00:00:00 Test Item Value Reference Range Interpretation Comments GLUCOSE (test code = 2217) 117 MG/DL BUN (test code = 2208) 54 MG/DL CREATININE (test code = 2214) 11.27 MG/DL eGFR (2020 CKD-EPI) (test code 5 ML/MIN/1.73 = 55428) CALC BUN/CREAT (test code = 5 RATIO 2235) SODIUM (test code = 2231) 139 MEQ/L POTASSIUM (test code = 2228) 4.2 MEQ/L CHLORIDE (test code = 2215) 95 MEQ/L CARBON DIOXIDE (test code = 23 MEQ/L 6) CALCIUM (test code = 2209) 8.8 MG/DL [...] ALT (test code = 2219) 8 U/L [id number] 00:00:00 Test Item Value Reference Range Interpretation Comments TSH, THIRD GENERATION (test 82.000 UIU/ML code = 2821) [id number] 00:00:00 Test Item Value Reference Range Interpretation Comments TSH, THIRD GENERATION (test 82.000 UIU/ML code = 2821) [id number] 00:00:00 Test Item Value Reference Range Interpretation Comments TSH, THIRD GENERATION (test 82.000 UIU/ML code = 2821) HIV AB/AG COMBO RFLX [id number] 00:00:00 Test Item Value Reference Range Interpretation Comments HIV 1/2 4TH GEN, RFLX CONF (test NON-REACTIVE code = 3514) HIV AB/AG COMBO RFLX [id number] 00:00:00 Test Item Value Reference Range Interpretation Comments HIV 1/2 4TH GEN, RFLX CONF (test NON-REACTIVE code = 3514) ACUTE HEPATITIS [id number] 00:00:00 Test Item Value Reference Range Interpretation Comments HEPATITIS A IgM (test code = NON-REACTIVE 65911) HEPATITIS B CORE IgM (test code NON-REACTIVE = 4644) HEPATITIS B SURF AG (test code = NON-REACTIVE 2739) HEPATITIS C ANTIBODY (test code NON-REACTIVE = 4675) INTERPRETATION HEPATITIS A: (NOTE) (test code = 2552) INTERPRETATION HEPATITIS B: (NOTE) (test code = 13526) INTERPRETATION HEPATITIS C: (NOTE) (test code = 65845) ACUTE HEPATITIS [id number] 00:00:00 Test Item Value Reference Range Interpretation Comments HEPATITIS A IgM (test code = NON-REACTIVE 28963) HEPATITIS B CORE IgM (test code NON-REACTIVE = 4644) HEPATITIS B SURF AG (test code = NON-REACTIVE 2739) HEPATITIS C ANTIBODY (test code NON-REACTIVE = 4675) INTERPRETATION HEPATITIS A: (NOTE) (test code = 2552) INTERPRETATION HEPATITIS B: (NOTE) (test code = 60117) INTERPRETATION HEPATITIS C: (NOTE) (test code = 47617) TSH, THIRD [id number] 05:58:13 Test Item Value Reference Range Interpretation Comments TSH, THIRD 33.700 UIU/ML 0.400-4.100 H UNLESS OTHERW ISE GENERATION (test INDICATED, ALL code = 2821) TESTING PERFORM [facility] [address] [place] [address] [facility] DIRECTOR: LATOYA MCCALL M.D. CLIA NUMBER [id number] CAP ACCREDITATION N O. [id number] HEMOGLOBIN [id number] 02:44:08 Test Item Value Reference Range Interpretation Comments HEMOGLOBIN A1c (test 7.0 % 4.2-5.6 H [employer]ES code = 42689) ASSOCIATION [employer] FOR HGB A1C: PREDIABETES/INC REASED [...] Interpretation Comments HEMOGLOBIN A1c (test code = 31344) 7.0 % HEMOGLOBIN A1c [ADDED]2021-05-16 00:00:00 Test Item Value Reference Range Interpretation Comments HEMOGLOBIN A1c (test code = 12484) 7.0 % HEMOGLOBIN A1c [ADDED]2021-05-16 00:00:00 Test Item Value Reference Range Interpretation Comments HEMOGLOBIN A1c (test code = 25392) 7.0 % TSH, THIRD GENERATION [ADDED]2021-05-16 00:00:00 [...] Interpretation Comments HEMOGLOBIN A1c (test code = 15495) 7.0 % HEMOGLOBIN A1c [ADDED]2021-05-16 00:00:00 Test Item Value Reference Range Interpretation Comments HEMOGLOBIN A1c (test code = 80117) 7.0 % HEMOGLOBIN A1c [ADDED]2021-05-16 00:00:00 Test Item Value Reference Range Interpretation Comments HEMOGLOBIN A1c (test code = 76876) 7.0 % TSH, THIRD GENERATION [ADDED]2021-05-16 00:00:00 [...] Interpretation Comments HEMOGLOBIN A1c (test code = 53602) 7.0 % HEMOGLOBIN A1c [ADDED]2021-05-16 00:00:00 Test Item Value Reference Range Interpretation Comments HEMOGLOBIN A1c (test code = 18193) 7.0 % HEMOGLOBIN A1c [ADDED]2021-05-16 00:00:00 Test Item Value Reference Range Interpretation Comments HEMOGLOBIN A1c (test code = 50584) 7.0 % HEMOGLOBIN A1c [ADDED]2021-05-16 00:00:00 Test Item Value Reference Range Interpretation Comments HEMOGLOBIN A1c (test code = 33691) 7.0 % HEMOGLOBIN A1c [ADDED]2021-05-16 00:00:00 Test Item Value Reference Range Interpretation Comments HEMOGLOBIN A1c (test code = 13419) 7.0 % TSH, THIRD GENERATION [ADDED]2021-05-16 00:00:00 [...] Interpretation Comments HEMOGLOBIN A1c (test code = 42840) 7.0 % HEMOGLOBIN A1c [ADDED]2021-05-16 00:00:00 Test Item Value Reference Range Interpretation Comments HEMOGLOBIN A1c (test code = 91181) 7.0 % HEMOGLOBIN A1c [ADDED]2021-05-16 00:00:00 Test Item Value Reference Range Interpretation Comments HEMOGLOBIN A1c (test code = 54182) 7.0 % TSH, THIRD GENERATION [ADDED]2021-05-16 00:00:00 [...] Interpretation Comments HEMOGLOBIN A1c (test code = 23208) 7.0 % HEMOGLOBIN A1c [ADDED]2021-05-16 00:00:00 Test Item Value Reference Range Interpretation Comments HEMOGLOBIN A1c (test code = 13285) 7.0 % HEMOGLOBIN A1c [ADDED]2021-05-16 00:00:00 Test Item Value Reference Range Interpretation Comments HEMOGLOBIN A1c (test code = 20938) 7.0 % TSH, THIRD GENERATION [ADDED]2021-05-16 00:00:00 [...] Interpretation Comments HEMOGLOBIN A1c (test code = 17066) 7.0 % HEMOGLOBIN A1c [ADDED]2021-05-16 00:00:00 Test Item Value Reference Range Interpretation Comments HEMOGLOBIN A1c (test code = 88456) 7.0 % HEMOGLOBIN A1c [ADDED]2021-05-16 00:00:00 Test Item Value Reference Range Interpretation Comments HEMOGLOBIN A1c (test code = 63156) 7.0 % TSH, THIRD GENERATION [ADDED]2021-05-16 00:00:00 [...] Interpretation Comments HEMOGLOBIN A1c (test code = 00687) 7.0 % HEMOGLOBIN A1c [ADDED]2021-05-16 00:00:00 Test Item Value Reference Range Interpretation Comments HEMOGLOBIN A1c (test code = 62762) 7.0 % HEMOGLOBIN A1c [ADDED]2021-05-16 00:00:00 Test Item Value Reference Range Interpretation Comments HEMOGLOBIN A1c (test code = 22501) 7.0 % TSH, THIRD GENERATION [ADDED]2021-05-16 00:00:00 [...] 33.700 UIU/ML code = 2821) CBC W/AUTO [id number] 00:00:00 Test Item Value Reference Range Interpretation [...] NUCLEATED RBCS (test code = 0.00 K/UL 16206) CBC W/AUTO [id number] 00:00:00 Test Item Value Reference Range Interpretation [...] NUCLEATED RBCS (test code = 0.00 K/UL 79639) CBC W/AUTO [id number] 00:00:00 Test Item Value Reference Range Interpretation [...] NUCLEATED RBCS (test code = 0.00 K/UL 09900) COMPREHENSIVE METABOLIC [id number] 00:00:00 Test Item Value Reference Range Interpretation Comments GLUCOSE (test code = 2217) 317 MG/DL BUN (test code = 2208) 41 MG/DL CREATININE (test code = 2214) 6.82 MG/DL eGFR (2020 CKD-EPI) (test code 8 ML/MIN/1.73 = 15029) CALC BUN/CREAT (test code = 6 RATIO [...] code = 2219) 22 U/L COMPREHENSIVE METABOLIC [id number] 00:00:00 Test Item Value Reference Range Interpretation Comments GLUCOSE (test code = 2217) 317 MG/DL BUN (test code = 2208) 41 MG/DL CREATININE (test code = 2214) 6.82 MG/DL eGFR (2020 CKD-EPI) (test code 8 ML/MIN/1.73 = 79631) CALC BUN/CREAT (test code = 6 RATIO [...] code = 2219) 22 U/L CBC W/AUTO [id number] 00:00:00 Test Item Value Reference Range Interpretation [...] NUCLEATED RBCS (test code = 0.00 K/UL 13114) CBC W/AUTO [id number] 00:00:00 Test Item Value Reference Range Interpretation [...] NUCLEATED RBCS (test code = 0.00 K/UL 98117) CBC W/AUTO [id number] 00:00:00 Test Item Value Reference Range Interpretation [...] NUCLEATED RBCS (test code = 0.00 K/UL 85665) COMPREHENSIVE METABOLIC [id number] 00:00:00 Test Item Value Reference Range Interpretation Comments GLUCOSE (test code = 2217) 317 MG/DL BUN (test code = 2208) 41 MG/DL CREATININE (test code = 2214) 6.82 MG/DL eGFR (2020 CKD-EPI) (test code 8 ML/MIN/1.73 = 69030) CALC BUN/CREAT (test code = 6 RATIO [...] code = 2219) 22 U/L COMPREHENSIVE METABOLIC [id number] 00:00:00 Test Item Value Reference Range Interpretation Comments GLUCOSE (test code = 2217) 317 MG/DL BUN (test code = 2208) 41 MG/DL CREATININE (test code = 2214) 6.82 MG/DL eGFR (2020 CKD-EPI) (test code 8 ML/MIN/1.73 = 36344) CALC BUN/CREAT (test code = 6 RATIO [...] code = 2219) 22 U/L CBC W/AUTO [id number] 00:00:00 Test Item Value Reference Range Interpretation [...] NUCLEATED RBCS (test code = 0.00 K/UL 97097) CBC W/AUTO [id number] 00:00:00 Test Item Value Reference Range Interpretation [...] NUCLEATED RBCS (test code = 0.00 K/UL 00418) CBC W/AUTO [id number] 00:00:00 Test Item Value Reference Range Interpretation [...] NUCLEATED RBCS (test code = 0.00 K/UL 49207) CBC W/AUTO [id number] 00:00:00 Test Item Value Reference Range Interpretation [...] NUCLEATED RBCS (test code = 0.00 K/UL 23368) CBC W/AUTO [id number] 00:00:00 Test Item Value Reference Range Interpretation [...] NUCLEATED RBCS (test code = 0.00 K/UL 26137) COMPREHENSIVE METABOLIC [id number] 00:00:00 Test Item Value Reference Range Interpretation Comments GLUCOSE (test code = 2217) 317 MG/DL BUN (test code = 2208) 41 MG/DL CREATININE (test code = 2214) 6.82 MG/DL eGFR (2020 CKD-EPI) (test code 8 ML/MIN/1.73 = 13670) CALC BUN/CREAT (test code = 6 RATIO [...] code = 2219) 22 U/L COMPREHENSIVE METABOLIC [id number] 00:00:00 Test Item Value Reference Range Interpretation Comments GLUCOSE (test code = 2217) 317 MG/DL BUN (test code = 2208) 41 MG/DL CREATININE (test code = 2214) 6.82 MG/DL eGFR (2020 CKD-EPI) (test code 8 ML/MIN/1.73 = 74288) CALC BUN/CREAT (test code = 6 RATIO [...] 0.3 MG/DL 7) ALKALINE PHOSPHATASE (test code 118 U/L = 2204) AST (test code = 2218) 13 U/L ALT (test code = 2219) 22 U/L COMPREHENSIVE METABOLIC [id number] 00:00:00 Test Item Value Reference Range Interpretation Comments GLUCOSE (test code = 2217) 317 MG/DL BUN (test code = 2208) 41 MG/DL CREATININE (test code = 2214) 6.82 MG/DL eGFR (2020 CKD-EPI) (test code 8 ML/MIN/1.73 = 18977) CALC BUN/CREAT (test code = 6 RATIO [...] code = 2219) 22 U/L CBC W/AUTO [id number] 00:00:00 Test Item Value Reference Range Interpretation [...] NUCLEATED RBCS (test code = 0.00 K/UL 25362) CBC W/AUTO [id number] 00:00:00 Test Item Value Reference Range Interpretation [...] NUCLEATED RBCS (test code = 0.00 K/UL 39757) CBC W/AUTO [id number] 00:00:00 Test Item Value Reference Range Interpretation [...] NUCLEATED RBCS (test code = 0.00 K/UL 31362) COMPREHENSIVE METABOLIC [id number] 00:00:00 Test Item Value Reference Range Interpretation Comments GLUCOSE (test code = 2217) 317 MG/DL BUN (test code = 2208) 41 MG/DL CREATININE (test code = 2214) 6.82 MG/DL eGFR (2020 CKD-EPI) (test code 8 ML/MIN/1.73 = 27838) CALC BUN/CREAT (test code = 6 RATIO [...] code = 2219) 22 U/L COMPREHENSIVE METABOLIC [id number] 00:00:00 Test Item Value Reference Range Interpretation Comments GLUCOSE (test code = 2217) 317 MG/DL BUN (test code = 2208) 41 MG/DL CREATININE (test code = 2214) 6.82 MG/DL eGFR (2020 CKD-EPI) (test code 8 ML/MIN/1.73 = 35619) CALC BUN/CREAT (test code = 6 RATIO [...] code = 2219) 22 U/L CBC W/AUTO [id number] 00:00:00 Test Item Value Reference Range Interpretation [...] NUCLEATED RBCS (test code = 0.00 K/UL 92953) CBC W/AUTO [id number] 00:00:00 Test Item Value Reference Range Interpretation [...] NUCLEATED RBCS (test code = 0.00 K/UL 41551) CBC W/AUTO [id number] 00:00:00 Test Item Value Reference Range Interpretation [...] NUCLEATED RBCS (test code = 0.00 K/UL 88880) COMPREHENSIVE METABOLIC [id number] 00:00:00 Test Item Value Reference Range Interpretation Comments GLUCOSE (test code = 2217) 317 MG/DL BUN (test code = 2208) 41 MG/DL CREATININE (test code = 2214) 6.82 MG/DL eGFR (2020 CKD-EPI) (test code 8 ML/MIN/1.73 = 35962) CALC BUN/CREAT (test code = 6 RATIO [...] 0.3 MG/DL 220) ALKALINE PHOSPHATASE (test code 118 U/L = 2204) AST (test code = 2218) 13 U/L ALT (test code = 2219) 22 U/L COMPREHENSIVE METABOLIC [id number] 00:00:00 Test Item Value Reference Range Interpretation Comments GLUCOSE (test code = 2217) 317 MG/DL BUN (test code = 2208) 41 MG/DL CREATININE (test code = 2214) 6.82 MG/DL eGFR (2020 CKD-EPI) (test code 8 ML/MIN/1.73 = 01814) CALC BUN/CREAT (test code = 6 RATIO [...] code = 2219) 22 U/L CBC W/AUTO [id number] 00:00:00 Test Item Value Reference Range Interpretation [...] NUCLEATED RBCS (test code = 0.00 K/UL 68051) CBC W/AUTO [id number] 00:00:00 Test Item Value Reference Range Interpretation [...] NUCLEATED RBCS (test code = 0.00 K/UL 84674) CBC W/AUTO [id number] 00:00:00 Test Item Value Reference Range Interpretation [...] NUCLEATED RBCS (test code = 0.00 K/UL 10145) COMPREHENSIVE METABOLIC [id number] 00:00:00 Test Item Value Reference Range Interpretation Comments GLUCOSE (test code = 2217) 317 MG/DL BUN (test code = 2208) 41 MG/DL CREATININE (test code = 2214) 6.82 MG/DL eGFR (2020 CKD-EPI) (test code 8 ML/MIN/1.73 = 61260) CALC BUN/CREAT (test code = 6 RATIO [...] code = 2219) 22 U/L COMPREHENSIVE METABOLIC [id number] 00:00:00 Test Item Value Reference Range Interpretation Comments GLUCOSE (test code = 2217) 317 MG/DL BUN (test code = 2208) 41 MG/DL CREATININE (test code = 2214) 6.82 MG/DL eGFR (2020 CKD-EPI) (test code 8 ML/MIN/1.73 = 84928) CALC BUN/CREAT (test code = 6 RATIO [...] code = 2219) 22 U/L CBC W/AUTO [id number] 00:00:00 Test Item Value Reference Range Interpretation [...] NUCLEATED RBCS (test code = 0.00 K/UL 29077) CBC W/AUTO [id number] 00:00:00 Test Item Value Reference Range Interpretation [...] NUCLEATED RBCS (test code = 0.00 K/UL 87853) CBC W/AUTO [id number] 00:00:00 Test Item Value Reference Range Interpretation [...] NUCLEATED RBCS (test code = 0.00 K/UL 85088) COMPREHENSIVE METABOLIC [id number] 00:00:00 Test Item Value Reference Range Interpretation Comments GLUCOSE (test code = 2217) 317 MG/DL BUN (test code = 2208) 41 MG/DL CREATININE (test code = 2214) 6.82 MG/DL eGFR (2020 CKD-EPI) (test code 8 ML/MIN/1.73 = 69407) CALC BUN/CREAT (test code = 6 RATIO 2235) SODIUM (test code = 2231) 137 MEQ/L POTASSIUM (test code = 2228) 3.8 MEQ/L CHLORIDE (test code = 2215) 91 MEQ/L CARBON DIOXIDE (test code = 25 MEQ/L 2206) CALCIUM (test code = 2209) 9.6 MG/DL [...] code = 2219) 22 U/L COMPREHENSIVE METABOLIC [id number] 00:00:00 Test Item Value Reference Range Interpretation Comments GLUCOSE (test code = 2217) 317 MG/DL BUN (test code = 2208) 41 MG/DL CREATININE (test code = 2214) 6.82 MG/DL eGFR (2020 CKD-EPI) (test code 8 ML/MIN/1.73 = 48654) CALC BUN/CREAT (test code = 6 RATIO [...] ALT (test code = 2219) 22 U/L [id number] 00:00:00 Test Item Value Reference Range Interpretation Comments AMYLASE (test code = 2205) 168 U/L [id number] 00:00:00 Test Item Value Reference Range Interpretation Comments AMYLASE (test code = 2205) 168 U/L [id number] 00:00:00 Test Item Value Reference Range Interpretation Comments LIPASE (test code = 2057) 116 U/L [id number] 00:00:00 Test Item Value Reference Range Interpretation Comments LIPASE (test code = 2057) 116 U/L [id number] 00:00:00 Test Item Value Reference Range Interpretation Comments LIPASE (test code = 2057) 116 U/L [id number] 00:00:00 Test Item Value Reference Range Interpretation Comments AMYLASE (test code = 5) 168 U/L [id number] 00:00:00 Test Item Value Reference Range Interpretation Comments AMYLASE (test code = 5) 168 U/L [id number] 00:00:00 Test Item Value Reference Range Interpretation Comments LIPASE (test code = 2057) 116 U/L [id number] 00:00:00 Test Item Value Reference Range Interpretation Comments LIPASE (test code = 2057) 116 U/L [id number] 00:00:00 Test Item Value Reference Range Interpretation Comments LIPASE (test code = 2057) 116 U/L [id number] 00:00:00 Test Item Value Reference Range Interpretation Comments AMYLASE (test code = 5) 168 U/L [id number] 00:00:00 Test Item Value Reference Range Interpretation Comments AMYLASE (test code = 5) 168 U/L [id number] 00:00:00 Test Item Value Reference Range Interpretation Comments AMYLASE (test code = 5) 168 U/L [id number] 00:00:00 Test Item Value Reference Range Interpretation Comments LIPASE (test code = 2057) 116 U/L [id number] 00:00:00 Test Item Value Reference Range Interpretation Comments LIPASE (test code = 2057) 116 U/L [id number] 00:00:00 Test Item Value Reference Range Interpretation Comments LIPASE (test code = 2057) 116 U/L [id number] 00:00:00 Test Item Value Reference Range Interpretation Comments LIPASE (test code = 2057) 116 U/L [id number] 00:00:00 Test Item Value Reference Range Interpretation Comments LIPASE (test code = 2057) 116 U/L [id number] 00:00:00 Test Item Value Reference Range Interpretation Comments AMYLASE (test code = 5) 168 U/L [id number] 00:00:00 Test Item Value Reference Range Interpretation Comments AMYLASE (test code = 2204) 168 U/L [id number] 00:00:00 Test Item Value Reference Range Interpretation Comments LIPASE (test code = 2057) 116 U/L [id number] 00:00:00 Test Item Value Reference Range Interpretation Comments LIPASE (test code = 2057) 116 U/L [id number] 00:00:00 Test Item Value Reference Range Interpretation Comments LIPASE (test code = 2057) 116 U/L [id number] 00:00:00 Test Item Value Reference Range Interpretation Comments AMYLASE (test code = 2204) 168 U/L [id number] 00:00:00 Test Item Value Reference Range Interpretation Comments AMYLASE (test code = 2204) 168 U/L [id number] 00:00:00 Test Item Value Reference Range Interpretation Comments LIPASE (test code = 2057) 116 U/L [id number] 00:00:00 Test Item Value Reference Range Interpretation Comments LIPASE (test code = 2057) 116 U/L [id number] 00:00:00 Test Item Value Reference Range Interpretation Comments LIPASE (test code = 2057) 116 U/L [id number] 00:00:00 Test Item Value Reference Range Interpretation Comments AMYLASE (test code = 5) 168 U/L [id number] 00:00:00 Test Item Value Reference Range Interpretation Comments AMYLASE (test code = 5) 168 U/L [id number] 00:00:00 Test Item Value Reference Range Interpretation Comments LIPASE (test code = 2057) 116 U/L [id number] 00:00:00 Test Item Value Reference Range Interpretation Comments LIPASE (test code = 2057) 116 U/L [id number] 00:00:00 Test Item Value Reference Range Interpretation Comments LIPASE (test code = 2057) 116 U/L [id number] 00:00:00 Test Item Value Reference Range Interpretation Comments AMYLASE (test code = 2205) 168 U/L [id number] 00:00:00 Test Item Value Reference Range Interpretation Comments AMYLASE (test code = 2205) 168 U/L [id number] 00:00:00 Test Item Value Reference Range Interpretation Comments LIPASE (test code = 2057) 116 U/L [id number] 00:00:00 Test Item Value Reference Range Interpretation Comments LIPASE (test code = 2057) 116 U/L [id number] 00:00:00 Test Item Value Reference Range Interpretation Comments LIPASE (test code = 2057) 116 U/L [id number] 00:00:00 Test Item Value Reference Range Interpretation Comments TSH, THIRD GENERATION (test >100.000 UIU/ML code = 2821) [id number] 00:00:00 Test Item Value Reference Range Interpretation Comments TSH, THIRD GENERATION (test >100.000 UIU/ML code = 2821) [id number] 00:00:00 Test Item Value Reference Range Interpretation Comments TSH, THIRD GENERATION (test >100.000 UIU/ML code = 2821) LIPID [id number] 00:00:00 Test Item Value Reference Range Interpretation Comments CHOLESTEROL (test code = 2210) 308 MG/DL TRIGLYCERIDES (test code = 2232) 280 MG/DL HDL CHOLESTEROL (test code = 2220) 66 MG/DL CALC LDL CHOL (test code = 2237) 192 MG/DL RISK RATIO LDL/HDL (test code = 2.91 RATIO 2238) LIPID [id number] 00:00:00 Test Item Value Reference Range Interpretation Comments CHOLESTEROL (test code = 2210) 308 MG/DL TRIGLYCERIDES (test code = 2232) 280 MG/DL HDL CHOLESTEROL (test code = 2220) 66 MG/DL CALC LDL CHOL (test code = 2237) 192 MG/DL RISK RATIO LDL/HDL (test code = 2.91 RATIO 2238) CBC W/AUTO [id number] 00:00:00 Test Item Value Reference Range Interpretation [...] NUCLEATED RBCS (test code = 0.00 K/UL 93938) CBC W/AUTO [id number] 00:00:00 Test Item Value Reference Range Interpretation [...] NUCLEATED RBCS (test code = 0.00 K/UL 67179) CBC W/AUTO [id number] 00:00:00 Test Item Value Reference Range Interpretation [...] NUCLEATED RBCS (test code = 0.00 K/UL 97141) COMPREHENSIVE METABOLIC [id number] 00:00:00 Test Item Value Reference Range Interpretation Comments GLUCOSE (test code = 2217) 137 MG/DL BUN (test code = 2208) 56 MG/DL CREATININE (test code = 2214) 10.21 MG/DL eGFR AMER. (test code = 6 ML/MIN/1.73 31541) eGFR NON- AMER. (test 5 ML/MIN/1.73 code = 22837) CALC BUN/CREAT (test code = 5 RATIO [...] code = 2219) 16 U/L COMPREHENSIVE METABOLIC [id number] 00:00:00 Test Item Value Reference Range Interpretation Comments GLUCOSE (test code = 2217) 137 MG/DL BUN (test code = 2208) 56 MG/DL CREATININE (test code = 2214) 10.21 MG/DL eGFR AMER. (test code = 6 ML/MIN/1.73 46678) eGFR NON- AMER. (test 5 ML/MIN/1.73 code = 27577) CALC BUN/CREAT (test code = 5 RATIO [...] ALT (test code = 2219) 16 U/L [id number] 00:00:00 Test Item Value Reference Range Interpretation Comments TSH, THIRD GENERATION (test >100.000 UIU/ML code = 2821) [id number] 00:00:00 Test Item Value Reference Range Interpretation Comments TSH, THIRD GENERATION (test >100.000 UIU/ML code = 2821) [id number] 00:00:00 Test Item Value Reference Range Interpretation Comments TSH, THIRD GENERATION (test >100.000 UIU/ML code = 2821) LIPID [id number] 00:00:00 Test Item Value Reference Range Interpretation Comments CHOLESTEROL (test code = 2210) 308 MG/DL TRIGLYCERIDES (test code = 2232) 280 MG/DL HDL CHOLESTEROL (test code = 2220) 66 MG/DL CALC LDL CHOL (test code = 2237) 192 MG/DL RISK RATIO LDL/HDL (test code = 2.91 RATIO 2238) LIPID [id number] 00:00:00 Test Item Value Reference Range Interpretation Comments CHOLESTEROL (test code = 2210) 308 MG/DL TRIGLYCERIDES (test code = 2232) 280 MG/DL HDL CHOLESTEROL (test code = 2220) 66 MG/DL CALC LDL CHOL (test code = 2237) 192 MG/DL RISK RATIO LDL/HDL (test code = 2.91 RATIO 2238) CBC W/AUTO [id number] 00:00:00 Test Item Value Reference Range Interpretation [...] NUCLEATED RBCS (test code = 0.00 K/UL 35852) CBC W/AUTO [id number] 00:00:00 Test Item Value Reference Range Interpretation [...] NUCLEATED RBCS (test code = 0.00 K/UL 99389) CBC W/AUTO [id number] 00:00:00 Test Item Value Reference Range Interpretation [...] NUCLEATED RBCS (test code = 0.00 K/UL 23700) COMPREHENSIVE METABOLIC [id number] 00:00:00 Test Item Value Reference Range Interpretation Comments GLUCOSE (test code = 2217) 137 MG/DL BUN (test code = 2208) 56 MG/DL CREATININE (test code = 2214) 10.21 MG/DL eGFR AMER. (test code = 6 ML/MIN/1.73 23576) eGFR NON- AMER. (test 5 ML/MIN/1.73 code = 11121) CALC BUN/CREAT (test code = 5 RATIO [...] code = 2219) 16 U/L COMPREHENSIVE METABOLIC [id number] 00:00:00 Test Item Value Reference Range Interpretation Comments GLUCOSE (test code = 2217) 137 MG/DL BUN (test code = 2208) 56 MG/DL CREATININE (test code = 2214) 10.21 MG/DL eGFR AMER. (test code = 6 ML/MIN/1.73 62316) eGFR NON- AMER. (test 5 ML/MIN/1.73 code = 96107) CALC BUN/CREAT (test code = 5 RATIO [...] ALT (test code = 2219) 16 U/L [id number] 00:00:00 Test Item Value Reference Range Interpretation Comments TSH, THIRD GENERATION (test >100.000 UIU/ML code = 2821) [id number] 00:00:00 Test Item Value Reference Range Interpretation Comments TSH, THIRD GENERATION (test >100.000 UIU/ML code = 2821) [id number] 00:00:00 Test Item Value Reference Range Interpretation Comments TSH, THIRD GENERATION (test >100.000 UIU/ML code = 2821) [id number] 00:00:00 Test Item Value Reference Range Interpretation Comments TSH, THIRD GENERATION (test >100.000 UIU/ML code = 2821) [id number] 00:00:00 Test Item Value Reference Range Interpretation Comments TSH, THIRD GENERATION (test >100.000 UIU/ML code = 2821) LIPID [id number] 00:00:00 Test Item Value Reference Range Interpretation Comments CHOLESTEROL (test code = 2210) 308 MG/DL TRIGLYCERIDES (test code = 2232) 280 MG/DL HDL CHOLESTEROL (test code = 2220) 66 MG/DL CALC LDL CHOL (test code = 2237) 192 MG/DL RISK RATIO LDL/HDL (test code = 2.91 RATIO 2238) LIPID [id number] 00:00:00 Test Item Value Reference Range Interpretation Comments CHOLESTEROL (test code = 2210) 308 MG/DL TRIGLYCERIDES (test code = 2232) 280 MG/DL HDL CHOLESTEROL (test code = 2220) 66 MG/DL CALC LDL CHOL (test code = 2237) 192 MG/DL RISK RATIO LDL/HDL (test code = 2.91 RATIO 2238) CBC W/AUTO [id number] 00:00:00 Test Item Value Reference Range Interpretation [...] NUCLEATED RBCS (test code = 0.00 K/UL 23473) CBC W/AUTO [id number] 00:00:00 Test Item Value Reference Range Interpretation [...] NUCLEATED RBCS (test code = 0.00 K/UL 62752) CBC W/AUTO [id number] 00:00:00 Test Item Value Reference Range Interpretation [...] NUCLEATED RBCS (test code = 0.00 K/UL 94471) COMPREHENSIVE METABOLIC [id number] 00:00:00 Test Item Value Reference Range Interpretation Comments GLUCOSE (test code = 2217) 137 MG/DL BUN (test code = 2208) 56 MG/DL CREATININE (test code = 2214) 10.21 MG/DL eGFR AMER. (test code = 6 ML/MIN/1.73 99879) eGFR NON- AMER. (test 5 ML/MIN/1.73 code = 71683) CALC BUN/CREAT (test code = 5 RATIO [...] code = 2219) 16 U/L COMPREHENSIVE METABOLIC [id number] 00:00:00 Test Item Value Reference Range Interpretation Comments GLUCOSE (test code = 2217) 137 MG/DL BUN (test code = 2208) 56 MG/DL CREATININE (test code = 2214) 10.21 MG/DL eGFR AMER. (test code = 6 ML/MIN/1.73 74828) eGFR NON- AMER. (test 5 ML/MIN/1.73 code = 03019) CALC BUN/CREAT (test code = 5 RATIO [...] (test code = 2219) 16 U/L LIPID [id number] 00:00:00 Test Item Value Reference Range Interpretation Comments CHOLESTEROL (test code = 2210) 308 MG/DL TRIGLYCERIDES (test code = 2232) 280 MG/DL HDL CHOLESTEROL (test code = 2220) 66 MG/DL CALC LDL CHOL (test code = 2237) 192 MG/DL RISK RATIO LDL/HDL (test code = 2.91 RATIO 2238) CBC W/AUTO [id number] 00:00:00 Test Item Value Reference Range Interpretation [...] NUCLEATED RBCS (test code = 0.00 K/UL 59909) CBC W/AUTO [id number] 00:00:00 Test Item Value Reference Range Interpretation [...] NUCLEATED RBCS (test code = 0.00 K/UL 44818) COMPREHENSIVE METABOLIC [id number] 00:00:00 Test Item Value Reference Range Interpretation Comments GLUCOSE (test code = 2217) 137 MG/DL BUN (test code = 2208) 56 MG/DL CREATININE (test code = 2214) 10.21 MG/DL eGFR AMER. (test code = 6 ML/MIN/1.73 11123) eGFR NON- AMER. (test 5 ML/MIN/1.73 code = 53846) CALC BUN/CREAT (test code = 5 RATIO [...] ALT (test code = 2219) 16 U/L [id number] 00:00:00 Test Item Value Reference Range Interpretation Comments TSH, THIRD GENERATION (test >100.000 UIU/ML code = 2821) [id number] 00:00:00 Test Item Value Reference Range Interpretation Comments TSH, THIRD GENERATION (test >100.000 UIU/ML code = 2821) [id number] 00:00:00 Test Item Value Reference Range Interpretation Comments TSH, THIRD GENERATION (test >100.000 UIU/ML code = 2821) LIPID [id number] 00:00:00 Test Item Value Reference Range Interpretation Comments CHOLESTEROL (test code = 2210) 308 MG/DL TRIGLYCERIDES (test code = 2232) 280 MG/DL HDL CHOLESTEROL (test code = 2220) 66 MG/DL CALC LDL CHOL (test code = 2237) 192 MG/DL RISK RATIO LDL/HDL (test code = 2.91 RATIO 2238) LIPID [id number] 00:00:00 Test Item Value Reference Range Interpretation Comments CHOLESTEROL (test code = 2210) 308 MG/DL TRIGLYCERIDES (test code = 2232) 280 MG/DL HDL CHOLESTEROL (test code = 2220) 66 MG/DL CALC LDL CHOL (test code = 2237) 192 MG/DL RISK RATIO LDL/HDL (test code = 2.91 RATIO 2238) CBC W/AUTO [id number] 00:00:00 Test Item Value Reference Range Interpretation [...] NUCLEATED RBCS (test code = 0.00 K/UL 71679) CBC W/AUTO [id number] 00:00:00 Test Item Value Reference Range Interpretation [...] NUCLEATED RBCS (test code = 0.00 K/UL 20980) CBC W/AUTO [id number] 00:00:00 Test Item Value Reference Range Interpretation [...] NUCLEATED RBCS (test code = 0.00 K/UL 10797) COMPREHENSIVE METABOLIC [id number] 00:00:00 Test Item Value Reference Range Interpretation Comments GLUCOSE (test code = 2217) 137 MG/DL BUN (test code = 2208) 56 MG/DL CREATININE (test code = 2214) 10.21 MG/DL eGFR AMER. (test code = 6 ML/MIN/1.73 50771) eGFR NON- AMER. (test 5 ML/MIN/1.73 code = 01426) CALC BUN/CREAT (test code = 5 RATIO [...] code = 2219) 16 U/L COMPREHENSIVE METABOLIC [id number] 00:00:00 Test Item Value Reference Range Interpretation Comments GLUCOSE (test code = 2217) 137 MG/DL BUN (test code = 2208) 56 MG/DL CREATININE (test code = 2214) 10.21 MG/DL eGFR AMER. (test code = 6 ML/MIN/1.73 44067) eGFR NON- AMER. (test 5 ML/MIN/1.73 code = 06607) CALC BUN/CREAT (test code = 5 RATIO [...] ALT (test code = 2219) 16 U/L [id number] 00:00:00 Test Item Value Reference Range Interpretation Comments TSH, THIRD GENERATION (test >100.000 UIU/ML code = 2821) [id number] 00:00:00 Test Item Value Reference Range Interpretation Comments TSH, THIRD GENERATION (test >100.000 UIU/ML code = 2821) [id number] 00:00:00 Test Item Value Reference Range Interpretation Comments TSH, THIRD GENERATION (test >100.000 UIU/ML code = 2821) LIPID [id number] 00:00:00 Test Item Value Reference Range Interpretation Comments CHOLESTEROL (test code = 2210) 308 MG/DL TRIGLYCERIDES (test code = 2232) 280 MG/DL HDL CHOLESTEROL (test code = 2220) 66 MG/DL CALC LDL CHOL (test code = 2237) 192 MG/DL RISK RATIO LDL/HDL (test code = 2.91 RATIO 2238) LIPID [id number] 00:00:00 Test Item Value Reference Range Interpretation Comments CHOLESTEROL (test code = 2210) 308 MG/DL TRIGLYCERIDES (test code = 2232) 280 MG/DL HDL CHOLESTEROL (test code = 2220) 66 MG/DL CALC LDL CHOL (test code = 2237) 192 MG/DL RISK RATIO LDL/HDL (test code = 2.91 RATIO 2238) CBC W/AUTO [id number] 00:00:00 Test Item Value Reference Range Interpretation [...] NUCLEATED RBCS (test code = 0.00 K/UL 56586) CBC W/AUTO [id number] 00:00:00 Test Item Value Reference Range Interpretation [...] NUCLEATED RBCS (test code = 0.00 K/UL 62959) CBC W/AUTO [id number] 00:00:00 Test Item Value Reference Range Interpretation [...] NUCLEATED RBCS (test code = 0.00 K/UL 20650) COMPREHENSIVE METABOLIC [id number] 00:00:00 Test Item Value Reference Range Interpretation Comments GLUCOSE (test code = 2217) 137 MG/DL BUN (test code = 2208) 56 MG/DL CREATININE (test code = 2214) 10.21 MG/DL eGFR AMER. (test code = 6 ML/MIN/1.73 76953) eGFR NON- AMER. (test 5 ML/MIN/1.73 code = 58168) CALC BUN/CREAT (test code = 5 RATIO [...] code = 2219) 16 U/L COMPREHENSIVE METABOLIC [id number] 00:00:00 Test Item Value Reference Range Interpretation Comments GLUCOSE (test code = 2217) 137 MG/DL BUN (test code = 2208) 56 MG/DL CREATININE (test code = 2214) 10.21 MG/DL eGFR AMER. (test code = 6 ML/MIN/1.73 82274) eGFR NON- AMER. (test 5 ML/MIN/1.73 code = 29678) CALC BUN/CREAT (test code = 5 RATIO [...] ALT (test code = 2219) 16 U/L [id number] 00:00:00 Test Item Value Reference Range Interpretation Comments TSH, THIRD GENERATION (test >100.000 UIU/ML code = 2821) [id number] 00:00:00 Test Item Value Reference Range Interpretation Comments TSH, THIRD GENERATION (test >100.000 UIU/ML code = 2821) [id number] 00:00:00 Test Item Value Reference Range Interpretation Comments TSH, THIRD GENERATION (test >100.000 UIU/ML code = 2821) LIPID [id number] 00:00:00 Test Item Value Reference Range Interpretation Comments CHOLESTEROL (test code = 2210) 308 MG/DL TRIGLYCERIDES (test code = 2232) 280 MG/DL HDL CHOLESTEROL (test code = 2220) 66 MG/DL CALC LDL CHOL (test code = 2237) 192 MG/DL RISK RATIO LDL/HDL (test code = 2.91 RATIO 2238) LIPID [id number] 00:00:00 Test Item Value Reference Range Interpretation Comments CHOLESTEROL (test code = 2210) 308 MG/DL TRIGLYCERIDES (test code = 2232) 280 MG/DL HDL CHOLESTEROL (test code = 2220) 66 MG/DL CALC LDL CHOL (test code = 2237) 192 MG/DL RISK RATIO LDL/HDL (test code = 2.91 RATIO 2238) CBC W/AUTO [id number] 00:00:00 Test Item Value Reference Range Interpretation [...] NUCLEATED RBCS (test code = 0.00 K/UL 30549) CBC W/AUTO [id number] 00:00:00 Test Item Value Reference Range Interpretation [...] NUCLEATED RBCS (test code = 0.00 K/UL 53710) CBC W/AUTO [id number] 00:00:00 Test Item Value Reference Range Interpretation [...] NUCLEATED RBCS (test code = 0.00 K/UL 03823) COMPREHENSIVE METABOLIC [id number] 00:00:00 Test Item Value Reference Range Interpretation Comments GLUCOSE (test code = 2217) 137 MG/DL BUN (test code = 2208) 56 MG/DL CREATININE (test code = 2214) 10.21 MG/DL eGFR AMER. (test code = 6 ML/MIN/1.73 90149) eGFR NON- AMER. (test 5 ML/MIN/1.73 code = 56409) CALC BUN/CREAT (test code = 5 RATIO [...] code = 2219) 16 U/L COMPREHENSIVE METABOLIC [id number] 00:00:00 Test Item Value Reference Range Interpretation Comments GLUCOSE (test code = 2217) 137 MG/DL BUN (test code = 2208) 56 MG/DL CREATININE (test code = 2214) 10.21 MG/DL eGFR AMER. (test code = 6 ML/MIN/1.73 00738) eGFR NON- AMER. (test 5 ML/MIN/1.73 code = 43896) CALC BUN/CREAT (test code = 5 RATIO [...] ALT (test code = 2219) 16 U/L [id number] 00:00:00 Test Item Value Reference Range Interpretation Comments TSH, THIRD GENERATION (test >100.000 UIU/ML code = 2821) [id number] 00:00:00 Test Item Value Reference Range Interpretation Comments TSH, THIRD GENERATION (test >100.000 UIU/ML code = 2821) [id number] 00:00:00 Test Item Value Reference Range Interpretation Comments TSH, THIRD GENERATION (test >100.000 UIU/ML code = 2821) LIPID [id number] 00:00:00 Test Item Value Reference Range Interpretation Comments CHOLESTEROL (test code = 2210) 308 MG/DL TRIGLYCERIDES (test code = 2232) 280 MG/DL HDL CHOLESTEROL (test code = 2220) 66 MG/DL CALC LDL CHOL (test code = 2237) 192 MG/DL RISK RATIO LDL/HDL (test code = 2.91 RATIO 2238) LIPID [id number] 00:00:00 Test Item Value Reference Range Interpretation Comments CHOLESTEROL (test code = 2210) 308 MG/DL TRIGLYCERIDES (test code = 2232) 280 MG/DL HDL CHOLESTEROL (test code = 2220) 66 MG/DL CALC LDL CHOL (test code = 2237) 192 MG/DL RISK RATIO LDL/HDL (test code = 2.91 RATIO 2238) CBC W/AUTO [id number] 00:00:00 Test Item Value Reference Range Interpretation [...] NUCLEATED RBCS (test code = 0.00 K/UL 29701) CBC W/AUTO [id number] 00:00:00 Test Item Value Reference Range Interpretation [...] NUCLEATED RBCS (test code = 0.00 K/UL 30489) CBC W/AUTO [id number] 00:00:00 Test Item Value Reference Range Interpretation [...] NUCLEATED RBCS (test code = 0.00 K/UL 69668) COMPREHENSIVE METABOLIC [id number] 00:00:00 Test Item Value Reference Range Interpretation Comments GLUCOSE (test code = 2217) 137 MG/DL BUN (test code = 2208) 56 MG/DL CREATININE (test code = 2214) 10.21 MG/DL eGFR AMER. (test code = 6 ML/MIN/1.73 74186) eGFR NON- AMER. (test 5 ML/MIN/1.73 code = 66755) CALC BUN/CREAT (test code = 5 RATIO [...] code = 2219) 16 U/L COMPREHENSIVE METABOLIC [id number] 00:00:00 Test Item Value Reference Range Interpretation Comments GLUCOSE (test code = 2217) 137 MG/DL BUN (test code = 2208) 56 MG/DL CREATININE (test code = 2214) 10.21 MG/DL eGFR AMER. (test code = 6 ML/MIN/1.73 47771) eGFR NON- AMER. (test 5 ML/MIN/1.73 code = 50285) CALC BUN/CREAT (test code = 5 RATIO [...] (test code = 2219) 16 U/L HEMOGLOBIN [id number] 00:00:00 Test Item Value Reference Range Interpretation Comments HEMOGLOBIN A1c (test code = 74644) 5.5 % HEMOGLOBIN [id number] 00:00:00 Test Item Value Reference Range Interpretation Comments HEMOGLOBIN A1c (test code = 13947) 5.5 % HEMOGLOBIN [id number] 00:00:00 Test Item Value Reference Range Interpretation Comments HEMOGLOBIN A1c (test code = 93870) 5.5 % [id number] 00:00:00 Test Item Value Reference Range Interpretation Comments TSH, THIRD GENERATION (test >100.000 UIU/ML code = 2821) [id number] 00:00:00 Test Item Value Reference Range Interpretation Comments TSH, THIRD GENERATION (test >100.000 UIU/ML code = 2821) [id number] 00:00:00 Test Item Value Reference Range Interpretation Comments TSH, THIRD GENERATION (test >100.000 UIU/ML code = 2821) HEMOGLOBIN [id number] 00:00:00 Test Item Value Reference Range Interpretation Comments HEMOGLOBIN A1c (test code = 32048) 5.5 % HEMOGLOBIN [id number] 00:00:00 Test Item Value Reference Range Interpretation Comments HEMOGLOBIN A1c (test code = 41836) 5.5 % HEMOGLOBIN [id number] 00:00:00 Test Item Value Reference Range Interpretation Comments HEMOGLOBIN A1c (test code = 09064) 5.5 % [id number] 00:00:00 Test Item Value Reference Range Interpretation Comments TSH, THIRD GENERATION (test >100.000 UIU/ML code = 2821) [id number] 00:00:00 Test Item Value Reference Range Interpretation Comments TSH, THIRD GENERATION (test >100.000 UIU/ML code = 2821) [id number] 00:00:00 Test Item Value Reference Range Interpretation Comments TSH, THIRD GENERATION (test >100.000 UIU/ML code = 2821) HEMOGLOBIN [id number] 00:00:00 Test Item Value Reference Range Interpretation Comments HEMOGLOBIN A1c (test code = 91408) 5.5 % HEMOGLOBIN [id number] 00:00:00 Test Item Value Reference Range Interpretation Comments HEMOGLOBIN A1c (test code = 49425) 5.5 % HEMOGLOBIN [id number] 00:00:00 Test Item Value Reference Range Interpretation Comments HEMOGLOBIN A1c (test code = 35655) 5.5 % HEMOGLOBIN [id number] 00:00:00 Test Item Value Reference Range Interpretation Comments HEMOGLOBIN A1c (test code = 24794) 5.5 % HEMOGLOBIN [id number] 00:00:00 Test Item Value Reference Range Interpretation Comments HEMOGLOBIN A1c (test code = 07416) 5.5 % [id number] 00:00:00 Test Item Value Reference Range Interpretation Comments TSH, THIRD GENERATION (test >100.000 UIU/ML code = 2821) [id number] 00:00:00 Test Item Value Reference Range Interpretation Comments TSH, THIRD GENERATION (test >100.000 UIU/ML code = 2821) [id number] 00:00:00 Test Item Value Reference Range Interpretation Comments TSH, THIRD GENERATION (test >100.000 UIU/ML code = 2821) [id number] 00:00:00 Test Item Value Reference Range Interpretation Comments TSH, THIRD GENERATION (test >100.000 UIU/ML code = 2821) [id number] 00:00:00 Test Item Value Reference Range Interpretation Comments TSH, THIRD GENERATION (test >100.000 UIU/ML code = 2821) HEMOGLOBIN [id number] 00:00:00 Test Item Value Reference Range Interpretation Comments HEMOGLOBIN A1c (test code = 18705) 5.5 % HEMOGLOBIN [id number] 00:00:00 Test Item Value Reference Range Interpretation Comments HEMOGLOBIN A1c (test code = 14476) 5.5 % HEMOGLOBIN [id number] 00:00:00 Test Item Value Reference Range Interpretation Comments HEMOGLOBIN A1c (test code = 99805) 5.5 % [id number] 00:00:00 Test Item Value Reference Range Interpretation Comments TSH, THIRD GENERATION (test >100.000 UIU/ML code = 2821) [id number] 00:00:00 Test Item Value Reference Range Interpretation Comments TSH, THIRD GENERATION (test >100.000 UIU/ML code = 2821) [id number] 00:00:00 Test Item Value Reference Range Interpretation Comments TSH, THIRD GENERATION (test >100.000 UIU/ML code = 2821) HEMOGLOBIN [id number] 00:00:00 Test Item Value Reference Range Interpretation Comments HEMOGLOBIN A1c (test code = 21628) 5.5 % HEMOGLOBIN [id number] 00:00:00 Test Item Value Reference Range Interpretation Comments HEMOGLOBIN A1c (test code = 42117) 5.5 % HEMOGLOBIN [id number] 00:00:00 Test Item Value Reference Range Interpretation Comments HEMOGLOBIN A1c (test code = 89039) 5.5 % [id number] 00:00:00 Test Item Value Reference Range Interpretation Comments TSH, THIRD GENERATION (test >100.000 UIU/ML code = 2821) [id number] 00:00:00 Test Item Value Reference Range Interpretation Comments TSH, THIRD GENERATION (test >100.000 UIU/ML code = 2821) [id number] 00:00:00 Test Item Value Reference Range Interpretation Comments TSH, THIRD GENERATION (test >100.000 UIU/ML code = 2821) HEMOGLOBIN [id number] 00:00:00 Test Item Value Reference Range Interpretation Comments HEMOGLOBIN A1c (test code = 18856) 5.5 % HEMOGLOBIN [id number] 00:00:00 Test Item Value Reference Range Interpretation Comments HEMOGLOBIN A1c (test code = 21784) 5.5 % HEMOGLOBIN [id number] 00:00:00 Test Item Value Reference Range Interpretation Comments HEMOGLOBIN A1c (test code = 38438) 5.5 % [id number] 00:00:00 Test Item Value Reference Range Interpretation Comments TSH, THIRD GENERATION (test >100.000 UIU/ML code = 2821) [id number] 00:00:00 Test Item Value Reference Range Interpretation Comments TSH, THIRD GENERATION (test >100.000 UIU/ML code = 2821) [id number] 00:00:00 Test Item Value Reference Range Interpretation Comments TSH, THIRD GENERATION (test >100.000 UIU/ML code = 2821) HEMOGLOBIN [id number] 00:00:00 Test Item Value Reference Range Interpretation Comments HEMOGLOBIN A1c (test code = 80748) 5.5 % HEMOGLOBIN [id number] 00:00:00 Test Item Value Reference Range Interpretation Comments HEMOGLOBIN A1c (test code = 32551) 5.5 % HEMOGLOBIN [id number] 00:00:00 Test Item Value Reference Range Interpretation Comments HEMOGLOBIN A1c (test code = 12975) 5.5 % [id number] 00:00:00 Test Item Value Reference Range Interpretation Comments TSH, THIRD GENERATION (test >100.000 UIU/ML code = 2821) [id number] 00:00:00 Test Item Value Reference Range Interpretation Comments TSH, THIRD GENERATION (test >100.000 UIU/ML code = 2821) [id number] 00:00:00 Test Item Value Reference Range Interpretation Comments TSH, THIRD GENERATION (test >100.000 UIU/ML code = 2821) CBC W/AUTO [id number] 00:00:00 Test Item Value Reference Range Interpretation [...] code = 1015) 298 K/UL CBC W/AUTO [id number] 00:00:00 Test Item Value Reference Range Interpretation [...] code = 1015) 298 K/UL CBC W/AUTO [id number] 00:00:00 Test Item Value Reference Range Interpretation [...] code = 1015) 298 K/UL COMPREHENSIVE METABOLIC [id number] 00:00:00 Test Item Value Reference Range Interpretation Comments GLUCOSE (test code = 2217) 228 MG/DL BUN (test code = 2208) 23 MG/DL CREATININE (test code = 2214) 5.99 MG/DL eGFR AMER. (test code 11 ML/MIN/1.73 = 35099) eGFR NON- AMER. (test 10 ML/MIN/1.73 code = 21830) CALC BUN/CREAT (test code = 4 RATIO [...] code = 2219) 24 U/L COMPREHENSIVE METABOLIC [id number] 00:00:00 Test Item Value Reference Range Interpretation Comments GLUCOSE (test code = 2217) 228 MG/DL BUN (test code = 2208) 23 MG/DL CREATININE (test code = 2214) 5.99 MG/DL eGFR AMER. (test code 11 ML/MIN/1.73 = 00117) eGFR NON- AMER. (test 10 ML/MIN/1.73 code = 35176) CALC BUN/CREAT (test code = 4 RATIO [...] (test code = 2219) 24 U/L LIPID [id number] 00:00:00 Test Item Value Reference Range Interpretation Comments CHOLESTEROL (test code = 2210) 335 MG/DL TRIGLYCERIDES (test code = 2232) 446 MG/DL HDL CHOLESTEROL (test code = 73 MG/DL 2220) CALC LDL CHOL (test code = 2237) (NOTE) MG/DL RISK RATIO LDL/HDL (test code = (NOTE) RATIO 2238) LIPID [id number] 00:00:00 Test Item Value Reference Range Interpretation Comments CHOLESTEROL (test code = 2210) 335 MG/DL TRIGLYCERIDES (test code = 2232) 446 MG/DL HDL CHOLESTEROL (test code = 73 MG/DL 2220) CALC LDL CHOL (test code = 2237) (NOTE) MG/DL RISK RATIO LDL/HDL (test code = (NOTE) RATIO 2238) [id number] 00:00:00 Test Item Value Reference Range Interpretation Comments TSH, THIRD GENERATION (test >100.000 UIU/ML code = 2821) [id number] 00:00:00 Test Item Value Reference Range Interpretation Comments TSH, THIRD GENERATION (test >100.000 UIU/ML code = 2821) [id number] 00:00:00 Test Item Value Reference Range Interpretation Comments TSH, THIRD GENERATION (test >100.000 UIU/ML code = 2821) CBC W/AUTO [id number] 00:00:00 Test Item Value Reference Range Interpretation [...] code = 1015) 298 K/UL CBC W/AUTO [id number] 00:00:00 Test Item Value Reference Range Interpretation [...] code = 1015) 298 K/UL CBC W/AUTO [id number] 00:00:00 Test Item Value Reference Range Interpretation [...] code = 1015) 298 K/UL COMPREHENSIVE METABOLIC [id number] 00:00:00 Test Item Value Reference Range Interpretation Comments GLUCOSE (test code = 2217) 228 MG/DL BUN (test code = 2208) 23 MG/DL CREATININE (test code = 2214) 5.99 MG/DL eGFR AMER. (test code 11 ML/MIN/1.73 = 82809) eGFR NON- AMER. (test 10 ML/MIN/1.73 code = 16087) CALC BUN/CREAT (test code = 4 RATIO 2235) SODIUM (test code = 2231) 137 MEQ/L POTASSIUM (test code = 2228) 3.7 MEQ/L CHLORIDE (test code = 2215) 91 MEQ/L CARBON DIOXIDE (test code = 29 MEQ/L 6) CALCIUM (test code = 2209) 9.7 MG/DL [...] code = 2219) 24 U/L COMPREHENSIVE METABOLIC [id number] 00:00:00 Test Item Value Reference Range Interpretation Comments GLUCOSE (test code = 2217) 228 MG/DL BUN (test code = 2208) 23 MG/DL CREATININE (test code = 2214) 5.99 MG/DL eGFR AMER. (test code 11 ML/MIN/1.73 = 10935) eGFR NON- AMER. (test 10 ML/MIN/1.73 code = 21420) CALC BUN/CREAT (test code = 4 RATIO [...] (test code = 2219) 24 U/L LIPID [id number] 00:00:00 Test Item Value Reference Range Interpretation Comments CHOLESTEROL (test code = 2210) 335 MG/DL TRIGLYCERIDES (test code = 2232) 446 MG/DL HDL CHOLESTEROL (test code = 73 MG/DL 2220) CALC LDL CHOL (test code = 2237) (NOTE) MG/DL RISK RATIO LDL/HDL (test code = (NOTE) RATIO 2238) LIPID [id number] 00:00:00 Test Item Value Reference Range Interpretation Comments CHOLESTEROL (test code = 2210) 335 MG/DL TRIGLYCERIDES (test code = 2232) 446 MG/DL HDL CHOLESTEROL (test code = 73 MG/DL 2220) CALC LDL CHOL (test code = 2237) (NOTE) MG/DL RISK RATIO LDL/HDL (test code = (NOTE) RATIO 2238) [id number] 00:00:00 Test Item Value Reference Range Interpretation Comments TSH, THIRD GENERATION (test >100.000 UIU/ML code = 2821) [id number] 00:00:00 Test Item Value Reference Range Interpretation Comments TSH, THIRD GENERATION (test >100.000 UIU/ML code = 2821) [id number] 00:00:00 Test Item Value Reference Range Interpretation Comments TSH, THIRD GENERATION (test >100.000 UIU/ML code = 2821) CBC W/AUTO [id number] 00:00:00 Test Item Value Reference Range Interpretation [...] code = 1015) 298 K/UL CBC W/AUTO [id number] 00:00:00 Test Item Value Reference Range Interpretation [...] code = 1015) 298 K/UL CBC W/AUTO [id number] 00:00:00 Test Item Value Reference Range Interpretation [...] code = 1015) 298 K/UL CBC W/AUTO [id number] 00:00:00 Test Item Value Reference Range Interpretation [...] code = 1015) 298 K/UL CBC W/AUTO [id number] 00:00:00 Test Item Value Reference Range Interpretation [...] code = 1015) 298 K/UL COMPREHENSIVE METABOLIC [id number] 00:00:00 Test Item Value Reference Range Interpretation Comments GLUCOSE (test code = 2217) 228 MG/DL BUN (test code = 2208) 23 MG/DL CREATININE (test code = 2214) 5.99 MG/DL eGFR AMER. (test code 11 ML/MIN/1.73 = 48423) eGFR NON- AMER. (test 10 ML/MIN/1.73 code = 81930) CALC BUN/CREAT (test code = 4 RATIO [...] code = 2219) 24 U/L COMPREHENSIVE METABOLIC [id number] 00:00:00 Test Item Value Reference Range Interpretation Comments GLUCOSE (test code = 2217) 228 MG/DL BUN (test code = 2208) 23 MG/DL CREATININE (test code = 2214) 5.99 MG/DL eGFR AMER. (test code 11 ML/MIN/1.73 = 75544) eGFR NON- AMER. (test 10 ML/MIN/1.73 code = 61004) CALC BUN/CREAT (test code = 4 RATIO [...] (test code = 2219) 24 U/L LIPID [id number] 00:00:00 Test Item Value Reference Range Interpretation Comments CHOLESTEROL (test code = 2210) 335 MG/DL TRIGLYCERIDES (test code = 2232) 446 MG/DL HDL CHOLESTEROL (test code = 73 MG/DL 2220) CALC LDL CHOL (test code = 2237) (NOTE) MG/DL RISK RATIO LDL/HDL (test code = (NOTE) RATIO 2238) LIPID [id number] 00:00:00 Test Item Value Reference Range Interpretation Comments CHOLESTEROL (test code = 2210) 335 MG/DL TRIGLYCERIDES (test code = 2232) 446 MG/DL HDL CHOLESTEROL (test code = 73 MG/DL 2220) CALC LDL CHOL (test code = 2237) (NOTE) MG/DL RISK RATIO LDL/HDL (test code = (NOTE) RATIO 2238) [id number] 00:00:00 Test Item Value Reference Range Interpretation Comments TSH, THIRD GENERATION (test >100.000 UIU/ML code = 2821) [id number] 00:00:00 Test Item Value Reference Range Interpretation Comments TSH, THIRD GENERATION (test >100.000 UIU/ML code = 2821) [id number] 00:00:00 Test Item Value Reference Range Interpretation Comments TSH, THIRD GENERATION (test >100.000 UIU/ML code = 2821) COMPREHENSIVE METABOLIC [id number] 00:00:00 Test Item Value Reference Range Interpretation Comments GLUCOSE (test code = 2217) 228 MG/DL BUN (test code = 2208) 23 MG/DL CREATININE (test code = 2214) 5.99 MG/DL eGFR AMER. (test code 11 ML/MIN/1.73 = 52666) eGFR NON- AMER. (test 10 ML/MIN/1.73 code = 30773) CALC BUN/CREAT (test code = 4 RATIO [...] (test code = 2219) 24 U/L LIPID [id number] 00:00:00 Test Item Value Reference Range Interpretation Comments CHOLESTEROL (test code = 2210) 335 MG/DL TRIGLYCERIDES (test code = 2232) 446 MG/DL HDL CHOLESTEROL (test code = 73 MG/DL 2219) CALC LDL CHOL (test code = 2237) (NOTE) MG/DL RISK RATIO LDL/HDL (test code = (NOTE) RATIO 2238) [id number] 00:00:00 Test Item Value Reference Range Interpretation Comments TSH, THIRD GENERATION (test >100.000 UIU/ML code = 2821) [id number] 00:00:00 Test Item Value Reference Range Interpretation Comments TSH, THIRD GENERATION (test >100.000 UIU/ML code = 2821) CBC W/AUTO [id number] 00:00:00 Test Item Value Reference Range Interpretation [...] code = 1015) 298 K/UL CBC W/AUTO [id number] 00:00:00 Test Item Value Reference Range Interpretation [...] code = 1015) 298 K/UL CBC W/AUTO [id number] 00:00:00 Test Item Value Reference Range Interpretation [...] code = 1015) 298 K/UL COMPREHENSIVE METABOLIC [id number] 00:00:00 Test Item Value Reference Range Interpretation Comments GLUCOSE (test code = 2217) 228 MG/DL BUN (test code = 2208) 23 MG/DL CREATININE (test code = 2214) 5.99 MG/DL eGFR AMER. (test code 11 ML/MIN/1.73 = 90051) eGFR NON- AMER. (test 10 ML/MIN/1.73 code = 69197) CALC BUN/CREAT (test code = 4 RATIO [...] code = 2219) 24 U/L COMPREHENSIVE METABOLIC [id number] 00:00:00 Test Item Value Reference Range Interpretation Comments GLUCOSE (test code = 2217) 228 MG/DL BUN (test code = 2208) 23 MG/DL CREATININE (test code = 2214) 5.99 MG/DL eGFR AMER. (test code 11 ML/MIN/1.73 = 13365) eGFR NON- AMER. (test 10 ML/MIN/1.73 code = 38898) CALC BUN/CREAT (test code = 4 RATIO [...] (test code = 2219) 24 U/L LIPID [id number] 00:00:00 Test Item Value Reference Range Interpretation Comments CHOLESTEROL (test code = 2210) 335 MG/DL TRIGLYCERIDES (test code = 2232) 446 MG/DL HDL CHOLESTEROL (test code = 73 MG/DL 2220) CALC LDL CHOL (test code = 2237) (NOTE) MG/DL RISK RATIO LDL/HDL (test code = (NOTE) RATIO 2238) LIPID [id number] 00:00:00 Test Item Value Reference Range Interpretation Comments CHOLESTEROL (test code = 2210) 335 MG/DL TRIGLYCERIDES (test code = 2232) 446 MG/DL HDL CHOLESTEROL (test code = 73 MG/DL 2220) CALC LDL CHOL (test code = 2237) (NOTE) MG/DL RISK RATIO LDL/HDL (test code = (NOTE) RATIO 2238) [id number] 00:00:00 Test Item Value Reference Range Interpretation Comments TSH, THIRD GENERATION (test >100.000 UIU/ML code = 2821) [id number] 00:00:00 Test Item Value Reference Range Interpretation Comments TSH, THIRD GENERATION (test >100.000 UIU/ML code = 2821) [id number] 00:00:00 Test Item Value Reference Range Interpretation Comments TSH, THIRD GENERATION (test >100.000 UIU/ML code = 2821) CBC W/AUTO [id number] 00:00:00 Test Item Value Reference Range Interpretation [...] code = 1015) 298 K/UL CBC W/AUTO [id number] 00:00:00 Test Item Value Reference Range Interpretation [...] code = 1015) 298 K/UL CBC W/AUTO [id number] 00:00:00 Test Item Value Reference Range Interpretation [...] code = 1015) 298 K/UL COMPREHENSIVE METABOLIC [id number] 00:00:00 Test Item Value Reference Range Interpretation Comments GLUCOSE (test code = 2217) 228 MG/DL BUN (test code = 2208) 23 MG/DL CREATININE (test code = 2214) 5.99 MG/DL eGFR AMER. (test code 11 ML/MIN/1.73 = 71325) eGFR NON- AMER. (test 10 ML/MIN/1.73 code = 91723) CALC BUN/CREAT (test code = 4 RATIO [...] code = 2219) 24 U/L COMPREHENSIVE METABOLIC [id number] 00:00:00 Test Item Value Reference Range Interpretation Comments GLUCOSE (test code = 2217) 228 MG/DL BUN (test code = 2208) 23 MG/DL CREATININE (test code = 2214) 5.99 MG/DL eGFR AMER. (test code 11 ML/MIN/1.73 = 05018) eGFR NON- AMER. (test 10 ML/MIN/1.73 code = 07330) CALC BUN/CREAT (test code = 4 RATIO [...] (test code = 2219) 24 U/L LIPID [id number] 00:00:00 Test Item Value Reference Range Interpretation Comments CHOLESTEROL (test code = 2210) 335 MG/DL TRIGLYCERIDES (test code = 2232) 446 MG/DL HDL CHOLESTEROL (test code = 73 MG/DL 2220) CALC LDL CHOL (test code = 2237) (NOTE) MG/DL RISK RATIO LDL/HDL (test code = (NOTE) RATIO 2238) LIPID [id number] 00:00:00 Test Item Value Reference Range Interpretation Comments CHOLESTEROL (test code = 2210) 335 MG/DL TRIGLYCERIDES (test code = 2232) 446 MG/DL HDL CHOLESTEROL (test code = 73 MG/DL 2220) CALC LDL CHOL (test code = 2237) (NOTE) MG/DL RISK RATIO LDL/HDL (test code = (NOTE) RATIO 2238) [id number] 00:00:00 Test Item Value Reference Range Interpretation Comments TSH, THIRD GENERATION (test >100.000 UIU/ML code = 2821) [id number] 00:00:00 Test Item Value Reference Range Interpretation Comments TSH, THIRD GENERATION (test >100.000 UIU/ML code = 2821) [id number] 00:00:00 Test Item Value Reference Range Interpretation Comments TSH, THIRD GENERATION (test >100.000 UIU/ML code = 2821) CBC W/AUTO [id number] 00:00:00 Test Item Value Reference Range Interpretation [...] code = 1015) 298 K/UL CBC W/AUTO [id number] 00:00:00 Test Item Value Reference Range Interpretation [...] code = 1015) 298 K/UL CBC W/AUTO [id number] 00:00:00 Test Item Value Reference Range Interpretation [...] code = 1015) 298 K/UL COMPREHENSIVE METABOLIC [id number] 00:00:00 Test Item Value Reference Range Interpretation Comments GLUCOSE (test code = 2217) 228 MG/DL BUN (test code = 2208) 23 MG/DL CREATININE (test code = 2214) 5.99 MG/DL eGFR AMER. (test code 11 ML/MIN/1.73 = 36849) eGFR NON- AMER. (test 10 ML/MIN/1.73 code = 44768) CALC BUN/CREAT (test code = 4 RATIO [...] code = 2219) 24 U/L COMPREHENSIVE METABOLIC [id number] 00:00:00 Test Item Value Reference Range Interpretation Comments GLUCOSE (test code = 2217) 228 MG/DL BUN (test code = 2208) 23 MG/DL CREATININE (test code = 2214) 5.99 MG/DL eGFR AMER. (test code 11 ML/MIN/1.73 = 99953) eGFR NON- AMER. (test 10 ML/MIN/1.73 code = 76712) CALC BUN/CREAT (test code = 4 RATIO [...] (test code = 2219) 24 U/L LIPID [id number] 00:00:00 Test Item Value Reference Range Interpretation Comments CHOLESTEROL (test code = 2210) 335 MG/DL TRIGLYCERIDES (test code = 2232) 446 MG/DL HDL CHOLESTEROL (test code = 73 MG/DL 2220) CALC LDL CHOL (test code = 2237) (NOTE) MG/DL RISK RATIO LDL/HDL (test code = (NOTE) RATIO 2238) LIPID [id number] 00:00:00 Test Item Value Reference Range Interpretation Comments CHOLESTEROL (test code = 2210) 335 MG/DL TRIGLYCERIDES (test code = 2232) 446 MG/DL HDL CHOLESTEROL (test code = 73 MG/DL 2220) CALC LDL CHOL (test code = 2237) (NOTE) MG/DL RISK RATIO LDL/HDL (test code = (NOTE) RATIO 2238) [id number] 00:00:00 Test Item Value Reference Range Interpretation Comments TSH, THIRD GENERATION (test >100.000 UIU/ML code = 2821) [id number] 00:00:00 Test Item Value Reference Range Interpretation Comments TSH, THIRD GENERATION (test >100.000 UIU/ML code = 2821) [id number] 00:00:00 Test Item Value Reference Range Interpretation Comments TSH, THIRD GENERATION (test >100.000 UIU/ML code = 2821) CBC W/AUTO [id number] 00:00:00 Test Item Value Reference Range Interpretation [...] code = 1015) 298 K/UL CBC W/AUTO [id number] 00:00:00 Test Item Value Reference Range Interpretation [...] code = 1015) 298 K/UL CBC W/AUTO [id number] 00:00:00 Test Item Value Reference Range Interpretation [...] code = 1015) 298 K/UL COMPREHENSIVE METABOLIC [id number] 00:00:00 Test Item Value Reference Range Interpretation Comments GLUCOSE (test code = 2217) 228 MG/DL BUN (test code = 2208) 23 MG/DL CREATININE (test code = 2214) 5.99 MG/DL eGFR AMER. (test code 11 ML/MIN/1.73 = 50647) eGFR NON- AMER. (test 10 ML/MIN/1.73 code = 45240) CALC BUN/CREAT (test code = 4 RATIO [...] code = 2219) 24 U/L COMPREHENSIVE METABOLIC [id number] 00:00:00 Test Item Value Reference Range Interpretation Comments GLUCOSE (test code = 2217) 228 MG/DL BUN (test code = 2208) 23 MG/DL CREATININE (test code = 2214) 5.99 MG/DL eGFR AMER. (test code 11 ML/MIN/1.73 = 67659) eGFR NON- AMER. (test 10 ML/MIN/1.73 code = 88791) CALC BUN/CREAT (test code = 4 RATIO [...] (test code = 2219) 24 U/L LIPID [id number] 00:00:00 Test Item Value Reference Range Interpretation Comments CHOLESTEROL (test code = 2210) 335 MG/DL TRIGLYCERIDES (test code = 2232) 446 MG/DL HDL CHOLESTEROL (test code = 73 MG/DL 2220) CALC LDL CHOL (test code = 2237) (NOTE) MG/DL RISK RATIO LDL/HDL (test code = (NOTE) RATIO 2238) LIPID [id number] 00:00:00 Test Item Value Reference Range Interpretation Comments CHOLESTEROL (test code = 2210) 335 MG/DL TRIGLYCERIDES (test code = 2232) 446 MG/DL HDL CHOLESTEROL (test code = 73 MG/DL 2220) CALC LDL CHOL (test code = 2237) (NOTE) MG/DL RISK RATIO LDL/HDL (test code = (NOTE) RATIO 2238) [id number] 00:00:00 Test Item Value Reference Range Interpretation Comments TSH, THIRD GENERATION (test >100.000 UIU/ML code = 2821) [id number] 00:00:00 Test Item Value Reference Range Interpretation Comments TSH, THIRD GENERATION (test >100.000 UIU/ML code = 2821) [id number] 00:00:00 Test Item Value Reference Range Interpretation Comments TSH, THIRD GENERATION (test >100.000 UIU/ML code = 2821) [id number] 00:00:00 Test Item Value Reference Range Interpretation Comments TSH, THIRD GENERATION (test >100.000 UIU/ML code = 2821) [id number] 00:00:00 Test Item Value Reference Range Interpretation Comments TSH, THIRD GENERATION (test >100.000 UIU/ML code = 2821) [id number] 00:00:00 Test Item Value Reference Range Interpretation Comments TSH, THIRD GENERATION (test >100.000 UIU/ML code = 2821) LIPID [id number] 00:00:00 Test Item Value Reference Range Interpretation Comments CHOLESTEROL (test code = 2210) 316 MG/DL TRIGLYCERIDES (test code = 2232) 547 MG/DL HDL CHOLESTEROL (test code = 54 MG/DL 2220) CALC LDL CHOL (test code = 2237) (NOTE) MG/DL RISK RATIO LDL/HDL (test code = (NOTE) RATIO 2238) LIPID [id number] 00:00:00 Test Item Value Reference Range Interpretation Comments CHOLESTEROL (test code = 2210) 316 MG/DL TRIGLYCERIDES (test code = 2232) 547 MG/DL HDL CHOLESTEROL (test code = 54 MG/DL 2220) CALC LDL CHOL (test code = 2237) (NOTE) MG/DL RISK RATIO LDL/HDL (test code = (NOTE) RATIO 2238) [id number] 00:00:00 Test Item Value Reference Range Interpretation Comments TSH, THIRD GENERATION (test >100.000 UIU/ML code = 2821) [id number] 00:00:00 Test Item Value Reference Range Interpretation Comments TSH, THIRD GENERATION (test >100.000 UIU/ML code = 2821) [id number] 00:00:00 Test Item Value Reference Range Interpretation Comments TSH, THIRD GENERATION (test >100.000 UIU/ML code = 2821) LIPID [id number] 00:00:00 Test Item Value Reference Range Interpretation Comments CHOLESTEROL (test code = 2210) 316 MG/DL TRIGLYCERIDES (test code = 2232) 547 MG/DL HDL CHOLESTEROL (test code = 54 MG/DL 2220) CALC LDL CHOL (test code = 2237) (NOTE) MG/DL RISK RATIO LDL/HDL (test code = (NOTE) RATIO 2238) LIPID [id number] 00:00:00 Test Item Value Reference Range Interpretation Comments CHOLESTEROL (test code = 2210) 316 MG/DL TRIGLYCERIDES (test code = 2232) 547 MG/DL HDL CHOLESTEROL (test code = 54 MG/DL 2220) CALC LDL CHOL (test code = 2237) (NOTE) MG/DL RISK RATIO LDL/HDL (test code = (NOTE) RATIO 2238) [id number] 00:00:00 Test Item Value Reference Range Interpretation Comments TSH, THIRD GENERATION (test >100.000 UIU/ML code = 2821) [id number] 00:00:00 Test Item Value Reference Range Interpretation Comments TSH, THIRD GENERATION (test >100.000 UIU/ML code = 2821) [id number] 00:00:00 Test Item Value Reference Range Interpretation Comments TSH, THIRD GENERATION (test >100.000 UIU/ML code = 2821) [id number] 00:00:00 Test Item Value Reference Range Interpretation Comments TSH, THIRD GENERATION (test >100.000 UIU/ML code = 2821) LIPID [id number] 00:00:00 Test Item Value Reference Range Interpretation Comments CHOLESTEROL (test code = 2210) 316 MG/DL TRIGLYCERIDES (test code = 2232) 547 MG/DL HDL CHOLESTEROL (test code = 54 MG/DL 2220) CALC LDL CHOL (test code = 2237) (NOTE) MG/DL RISK RATIO LDL/HDL (test code = (NOTE) RATIO 2238) LIPID [id number] 00:00:00 Test Item Value Reference Range Interpretation Comments CHOLESTEROL (test code = 2210) 316 MG/DL TRIGLYCERIDES (test code = 2232) 547 MG/DL HDL CHOLESTEROL (test code = 54 MG/DL 2220) CALC LDL CHOL (test code = 2237) (NOTE) MG/DL RISK RATIO LDL/HDL (test code = (NOTE) RATIO 2238) [id number] 00:00:00 Test Item Value Reference Range Interpretation Comments TSH, THIRD GENERATION (test >100.000 UIU/ML code = 2821) LIPID [id number] 00:00:00 Test Item Value Reference Range Interpretation Comments CHOLESTEROL (test code = 2210) 316 MG/DL TRIGLYCERIDES (test code = 2232) 547 MG/DL HDL CHOLESTEROL (test code = 54 MG/DL 2220) CALC LDL CHOL (test code = 2237) (NOTE) MG/DL RISK RATIO LDL/HDL (test code = (NOTE) RATIO 2238) [id number] 00:00:00 Test Item Value Reference Range Interpretation Comments TSH, THIRD GENERATION (test >100.000 UIU/ML code = 2821) [id number] 00:00:00 Test Item Value Reference Range Interpretation Comments TSH, THIRD GENERATION (test >100.000 UIU/ML code = 2821) [id number] 00:00:00 Test Item Value Reference Range Interpretation Comments TSH, THIRD GENERATION (test >100.000 UIU/ML code = 2821) LIPID [id number] 00:00:00 Test Item Value Reference Range Interpretation Comments CHOLESTEROL (test code = 2210) 316 MG/DL TRIGLYCERIDES (test code = 2232) 547 MG/DL HDL CHOLESTEROL (test code = 54 MG/DL 2220) CALC LDL CHOL (test code = 2237) (NOTE) MG/DL RISK RATIO LDL/HDL (test code = (NOTE) RATIO 2238) LIPID [id number] 00:00:00 Test Item Value Reference Range Interpretation Comments CHOLESTEROL (test code = 2210) 316 MG/DL TRIGLYCERIDES (test code = 2232) 547 MG/DL HDL CHOLESTEROL (test code = 54 MG/DL 2220) CALC LDL CHOL (test code = 2237) (NOTE) MG/DL RISK RATIO LDL/HDL (test code = (NOTE) RATIO 2238) [id number] 00:00:00 Test Item Value Reference Range Interpretation Comments TSH, THIRD GENERATION (test >100.000 UIU/ML code = 2821) [id number] 00:00:00 Test Item Value Reference Range Interpretation Comments TSH, THIRD GENERATION (test >100.000 UIU/ML code = 2821) [id number] 00:00:00 Test Item Value Reference Range Interpretation Comments TSH, THIRD GENERATION (test >100.000 UIU/ML code = 2821) LIPID [id number] 00:00:00 Test Item Value Reference Range Interpretation Comments CHOLESTEROL (test code = 2210) 316 MG/DL TRIGLYCERIDES (test code = 2232) 547 MG/DL HDL CHOLESTEROL (test code = 54 MG/DL 2220) CALC LDL CHOL (test code = 2237) (NOTE) MG/DL RISK RATIO LDL/HDL (test code = (NOTE) RATIO 2238) LIPID [id number] 00:00:00 Test Item Value Reference Range Interpretation Comments CHOLESTEROL (test code = 2210) 316 MG/DL TRIGLYCERIDES (test code = 2232) 547 MG/DL HDL CHOLESTEROL (test code = 54 MG/DL 2220) CALC LDL CHOL (test code = 2237) (NOTE) MG/DL RISK RATIO LDL/HDL (test code = (NOTE) RATIO 2238) [id number] 00:00:00 Test Item Value Reference Range Interpretation Comments TSH, THIRD GENERATION (test >100.000 UIU/ML code = 2821) [id number] 00:00:00 Test Item Value Reference Range Interpretation Comments TSH, THIRD GENERATION (test >100.000 UIU/ML code = 2821) [id number] 00:00:00 Test Item Value Reference Range Interpretation Comments TSH, THIRD GENERATION (test >100.000 UIU/ML code = 2821) LIPID [id number] 00:00:00 Test Item Value Reference Range Interpretation Comments CHOLESTEROL (test code = 2210) 316 MG/DL TRIGLYCERIDES (test code = 2232) 547 MG/DL HDL CHOLESTEROL (test code = 54 MG/DL 2220) CALC LDL CHOL (test code = 2237) (NOTE) MG/DL RISK RATIO LDL/HDL (test code = (NOTE) RATIO 2238) LIPID [id number] 00:00:00 Test Item Value Reference Range Interpretation Comments CHOLESTEROL (test code = 2210) 316 MG/DL TRIGLYCERIDES (test code = 2232) 547 MG/DL HDL CHOLESTEROL (test code = 54 MG/DL 2220) CALC LDL CHOL (test code = 2237) (NOTE) MG/DL RISK RATIO LDL/HDL (test code = (NOTE) RATIO 2238) [id number] 00:00:00 Test Item Value Reference Range Interpretation Comments TSH, THIRD GENERATION (test >100.000 UIU/ML code = 2821) [id number] 00:00:00 Test Item Value Reference Range Interpretation Comments TSH, THIRD GENERATION (test >100.000 UIU/ML code = 2821) [id number] 00:00:00 Test Item Value Reference Range Interpretation Comments TSH, THIRD GENERATION (test >100.000 UIU/ML code = 2821) LIPID [id number] 00:00:00 Test Item Value Reference Range Interpretation Comments CHOLESTEROL (test code = 2210) 316 MG/DL TRIGLYCERIDES (test code = 2232) 547 MG/DL HDL CHOLESTEROL (test code = 54 MG/DL 2220) CALC LDL CHOL (test code = 2237) (NOTE) MG/DL RISK RATIO LDL/HDL (test code = (NOTE) RATIO 2238) LIPID [id number] 00:00:00 Test Item Value Reference Range Interpretation [...] code = Normal 762) HEPATITIS B SURFACE [id number] 09:48:00 Test Item Value Reference Range Interpretation [...] (BEAKER) (test code = 1+ few 966) [id number] 05:55:00 Test Item Value Reference Range Interpretation Comments PHOSPHORUS (BEAKER) (test code = 9.2 mg/dL 2.3-4.7 HH 604) Hall Coordinator ID - RA MBASIC METABOLIC [id number] 05:04:00 Test Item Value Reference Range Interpretation [...] S NOT APPLICABLE FOR DIALYSIS PATIEN TS. Hall Coordinator ID - RA MCBC WITH PLATELET COUNT + MANUAL [id number] 04:42:00 Test Item Value Reference Range Interpretation [...] (BEAKER) (test code = 413) BASIC METABOLIC [id number] 03:00:00 Test Item Value Reference Range Interpretation [...] S NOT APPLICABLE FOR DIALYSIS PATIEN TS. Hall Coordinator ID - RA [id number] 02:58:00 Test Item Value Reference Range Interpretation Comments PHOSPHORUS (BEAKER) (test code = 7.4 mg/dL 2.3-4.7 H 604) Hall Coordinator ID - RA MCBC W/PLT COUNT & AUTO [id number] 02:38:00 Test Item Value Reference Range Interpretation [...] PERCENT (BEAKER) (test code = 2801) SARS-COV2/RT-PCR ([facility])2019-12-14 11:10:00 Test Item Value Reference Range Interpretation Comments SARS-COV2/RT-PCR (test code Negative Not Detected, Negative, = 2521650) See external report for linked test SARS-COV-[address] [facility] (test code = 0436943) Negative results do not preclude SARS-CoV-2 infection [...] of the Act.Fact Sheet for Healthcare Pro viders:https://www.[employer].com/Documents/Xpert%20Xpress%20SARS%20CoV-2/Fact%20Sh eets/831-8562%12GEYB-ROB-2%20HEALTHCARE%20PROVIDERS%20FACT%20SHEET.pdfFact Sheet for Healthcare Patients:https://www.[facility] id.[employer]/Documents/Xpert%20Xpress%20SARS%20CoV-2/Fact%20Sheets/958-3801%20SARS-COV -2%20PATIENT%20FACT%20SHEET.pdfPerforming Laboratory:[facility], [place] [address]OZPTI METABOLIC [id number] 09:53:00 Test Item Value Reference Range Interpretation [...] S NOT APPLICABLE FOR DIALYSIS PATIEN TS. Hall Coordinator ID - ROSIANGPROTHROMBIN [id number] 09:39:00 Test Item Value Reference Range Interpretation [...] 0-0 (BEAKER) (test code = 413) URINE [id number] 11:01:00 Test Item Value Reference Range Interpretation Comments CULTURE (BEAKER) ENTEROCOCCUS A 40-49,000 c ol/mL (test code = 1095) FAECALIS Enterococ cus faecalis Ampicillin (test S code = 26) Linezolid (test code S = 40) Nitrofurantoin (test S code = 23) Tetracycline (test R code = 2) Vancomycin (test S code = 13) <10,000 col/mL skin floraHEMOGLOBIN [id number] 00:00:00 Test Item Value Reference Range Interpretation Comments HEMOGLOBIN A1c (test code = 03424) 6.9 % HEMOGLOBIN [id number] 00:00:00 Test Item Value Reference Range Interpretation Comments HEMOGLOBIN A1c (test code = 18746) 6.9 % HEMOGLOBIN [id number] 00:00:00 Test Item Value Reference Range Interpretation Comments HEMOGLOBIN A1c (test code = 07011) 6.9 % LIPID [id number] 00:00:00 Test Item Value Reference Range Interpretation Comments CHOLESTEROL (test code = 2210) 309 MG/DL TRIGLYCERIDES (test code = 2232) 587 MG/DL HDL CHOLESTEROL (test code = 48 MG/DL 2220) CALC LDL CHOL (test code = 2237) (NOTE) MG/DL RISK RATIO LDL/HDL (test code = (NOTE) RATIO 2238) LIPID [id number] 00:00:00 Test Item Value Reference Range Interpretation [...] THYROX. BIND. CAPAC. (test 1.5 code = 83069) T4 (THYROXINE) (test code = <1.2 UG/DL 2819) CORRECTED T4 (FTI) (test code (NOTE) UG/DL = 2820) TSH, THIRD GENERATION (test >100.000 UIU/ML code = 2821) THYROID II PROFILE (TU,T4,FTI,TSH) [ADDED]2019-10-26 00:00:00 Test Item Value Reference Range Interpretation Comments T-UPTAKE (test code = 2817) 18.4 % THYROX. BIND. CAPAC. (test 1.5 code = 17605) T4 (THYROXINE) (test code = <1.2 UG/DL 2819) CORRECTED T4 (FTI) (test code (NOTE) UG/DL = 2820) TSH, THIRD GENERATION (test >100.000 UIU/ML code = 2821) HEMOGLOBIN [id number] 00:00:00 Test Item Value Reference Range Interpretation Comments HEMOGLOBIN A1c (test code = 97306) 6.9 % HEMOGLOBIN [id number] 00:00:00 Test Item Value Reference Range Interpretation Comments HEMOGLOBIN A1c (test code = 82509) 6.9 % HEMOGLOBIN [id number] 00:00:00 Test Item Value Reference Range Interpretation Comments HEMOGLOBIN A1c (test code = 00900) 6.9 % LIPID [id number] 00:00:00 Test Item Value Reference Range Interpretation Comments CHOLESTEROL (test code = 2210) 309 MG/DL TRIGLYCERIDES (test code = 2232) 587 MG/DL HDL CHOLESTEROL (test code = 48 MG/DL 2220) CALC LDL CHOL (test code = 2237) (NOTE) MG/DL RISK RATIO LDL/HDL (test code = (NOTE) RATIO 2238) LIPID [id number] 00:00:00 Test Item Value Reference Range Interpretation [...] THYROX. BIND. CAPAC. (test 1.5 code = 00765) T4 (THYROXINE) (test code = <1.2 UG/DL 2819) CORRECTED T4 (FTI) (test code (NOTE) UG/DL = 2820) TSH, THIRD GENERATION (test >100.000 UIU/ML code = 2821) THYROID II PROFILE (TU,T4,FTI,TSH) [ADDED]2019-10-26 00:00:00 Test Item Value Reference Range Interpretation Comments T-UPTAKE (test code = 2817) 18.4 % THYROX. BIND. CAPAC. (test 1.5 code = 66870) T4 (THYROXINE) (test code = <1.2 UG/DL 2819) CORRECTED T4 (FTI) (test code (NOTE) UG/DL = 2820) TSH, THIRD GENERATION (test >100.000 UIU/ML code = 2821) HEMOGLOBIN [id number] 00:00:00 Test Item Value Reference Range Interpretation Comments HEMOGLOBIN A1c (test code = 65639) 6.9 % HEMOGLOBIN [id number] 00:00:00 Test Item Value Reference Range Interpretation Comments HEMOGLOBIN A1c (test code = 39001) 6.9 % HEMOGLOBIN [id number] 00:00:00 Test Item Value Reference Range Interpretation Comments HEMOGLOBIN A1c (test code = 90052) 6.9 % HEMOGLOBIN [id number] 00:00:00 Test Item Value Reference Range Interpretation Comments HEMOGLOBIN A1c (test code = 28840) 6.9 % HEMOGLOBIN [id number] 00:00:00 Test Item Value Reference Range Interpretation Comments HEMOGLOBIN A1c (test code = 52801) 6.9 % LIPID [id number] 00:00:00 Test Item Value Reference Range Interpretation Comments CHOLESTEROL (test code = 2210) 309 MG/DL TRIGLYCERIDES (test code = 2232) 587 MG/DL HDL CHOLESTEROL (test code = 48 MG/DL 2220) CALC LDL CHOL (test code = 2237) (NOTE) MG/DL RISK RATIO LDL/HDL (test code = (NOTE) RATIO 2238) LIPID [id number] 00:00:00 Test Item Value Reference Range Interpretation [...] THYROX. BIND. CAPAC. (test 1.5 code = 94532) T4 (THYROXINE) (test code = <1.2 UG/DL 2819) CORRECTED T4 (FTI) (test code (NOTE) UG/DL = 2820) TSH, THIRD GENERATION (test >100.000 UIU/ML code = 2821) THYROID II PROFILE (TU,T4,FTI,TSH) [ADDED]2019-10-26 00:00:00 Test Item Value Reference Range Interpretation Comments T-UPTAKE (test code = 2817) 18.4 % THYROX. BIND. CAPAC. (test 1.5 code = 48733) T4 (THYROXINE) (test code = <1.2 UG/DL 2819) CORRECTED T4 (FTI) (test code (NOTE) UG/DL = 2820) TSH, THIRD GENERATION (test >100.000 UIU/ML code = 2821) LIPID [id number] 00:00:00 Test Item Value Reference Range Interpretation [...] THYROX. BIND. CAPAC. (test 1.5 code = 39952) T4 (THYROXINE) (test code = <1.2 UG/DL 2819) CORRECTED T4 (FTI) (test code (NOTE) UG/DL = 2820) TSH, THIRD GENERATION (test >100.000 UIU/ML code = 2821) HEMOGLOBIN [id number] 00:00:00 Test Item Value Reference Range Interpretation Comments HEMOGLOBIN A1c (test code = 27414) 6.9 % HEMOGLOBIN [id number] 00:00:00 Test Item Value Reference Range Interpretation Comments HEMOGLOBIN A1c (test code = 31737) 6.9 % HEMOGLOBIN [id number] 00:00:00 Test Item Value Reference Range Interpretation Comments HEMOGLOBIN A1c (test code = 98840) 6.9 % LIPID [id number] 00:00:00 Test Item Value Reference Range Interpretation Comments CHOLESTEROL (test code = 2210) 309 MG/DL TRIGLYCERIDES (test code = 2232) 587 MG/DL HDL CHOLESTEROL (test code = 48 MG/DL 2220) CALC LDL CHOL (test code = 2237) (NOTE) MG/DL RISK RATIO LDL/HDL (test code = (NOTE) RATIO 2238) LIPID [id number] 00:00:00 Test Item Value Reference Range Interpretation [...] THYROX. BIND. CAPAC. (test 1.5 code = 72030) T4 (THYROXINE) (test code = <1.2 UG/DL 2819) CORRECTED T4 (FTI) (test code (NOTE) UG/DL = 2820) TSH, THIRD GENERATION (test >100.000 UIU/ML code = 2821) THYROID II PROFILE (TU,T4,FTI,TSH) [ADDED]2019-10-26 00:00:00 Test Item Value Reference Range Interpretation Comments T-UPTAKE (test code = 2817) 18.4 % THYROX. BIND. CAPAC. (test 1.5 code = 85274) T4 (THYROXINE) (test code = <1.2 UG/DL 2819) CORRECTED T4 (FTI) (test code (NOTE) UG/DL = 2820) TSH, THIRD GENERATION (test >100.000 UIU/ML code = 2821) HEMOGLOBIN [id number] 00:00:00 Test Item Value Reference Range Interpretation Comments HEMOGLOBIN A1c (test code = 77745) 6.9 % HEMOGLOBIN [id number] 00:00:00 Test Item Value Reference Range Interpretation Comments HEMOGLOBIN A1c (test code = 57547) 6.9 % HEMOGLOBIN [id number] 00:00:00 Test Item Value Reference Range Interpretation Comments HEMOGLOBIN A1c (test code = 75951) 6.9 % LIPID [id number] 00:00:00 Test Item Value Reference Range Interpretation Comments CHOLESTEROL (test code = 2210) 309 MG/DL TRIGLYCERIDES (test code = 2232) 587 MG/DL HDL CHOLESTEROL (test code = 48 MG/DL 2220) CALC LDL CHOL (test code = 2237) (NOTE) MG/DL RISK RATIO LDL/HDL (test code = (NOTE) RATIO 2238) LIPID [id number] 00:00:00 Test Item Value Reference Range Interpretation [...] THYROX. BIND. CAPAC. (test 1.5 code = 47659) T4 (THYROXINE) (test code = <1.2 UG/DL 2819) CORRECTED T4 (FTI) (test code (NOTE) UG/DL = 2820) TSH, THIRD GENERATION (test >100.000 UIU/ML code = 2821) THYROID II PROFILE (TU,T4,FTI,TSH) [ADDED]2019-10-26 00:00:00 Test Item Value Reference Range Interpretation Comments T-UPTAKE (test code = 2817) 18.4 % THYROX. BIND. CAPAC. (test 1.5 code = 46495) T4 (THYROXINE) (test code = <1.2 UG/DL 2819) CORRECTED T4 (FTI) (test code (NOTE) UG/DL = 2820) TSH, THIRD GENERATION (test >100.000 UIU/ML code = 2821) HEMOGLOBIN [id number] 00:00:00 Test Item Value Reference Range Interpretation Comments HEMOGLOBIN A1c (test code = 37258) 6.9 % HEMOGLOBIN [id number] 00:00:00 Test Item Value Reference Range Interpretation Comments HEMOGLOBIN A1c (test code = 56913) 6.9 % HEMOGLOBIN [id number] 00:00:00 Test Item Value Reference Range Interpretation Comments HEMOGLOBIN A1c (test code = 38076) 6.9 % LIPID [id number] 00:00:00 Test Item Value Reference Range Interpretation Comments CHOLESTEROL (test code = 2210) 309 MG/DL TRIGLYCERIDES (test code = 2232) 587 MG/DL HDL CHOLESTEROL (test code = 48 MG/DL 2220) CALC LDL CHOL (test code = 2237) (NOTE) MG/DL RISK RATIO LDL/HDL (test code = (NOTE) RATIO 2238) LIPID [id number] 00:00:00 Test Item Value Reference Range Interpretation [...] THYROX. BIND. CAPAC. (test 1.5 code = 55508) T4 (THYROXINE) (test code = <1.2 UG/DL 2819) CORRECTED T4 (FTI) (test code (NOTE) UG/DL = 2820) TSH, THIRD GENERATION (test >100.000 UIU/ML code = 2821) THYROID II PROFILE (TU,T4,FTI,TSH) [ADDED]2019-10-26 00:00:00 Test Item Value Reference Range Interpretation Comments T-UPTAKE (test code = 2817) 18.4 % THYROX. BIND. CAPAC. (test 1.5 code = 58118) T4 (THYROXINE) (test code = <1.2 UG/DL 2819) CORRECTED T4 (FTI) (test code (NOTE) UG/DL = 2820) TSH, THIRD GENERATION (test >100.000 UIU/ML code = 2821) HEMOGLOBIN [id number] 00:00:00 Test Item Value Reference Range Interpretation Comments HEMOGLOBIN A1c (test code = 12070) 6.9 % HEMOGLOBIN [id number] 00:00:00 Test Item Value Reference Range Interpretation Comments HEMOGLOBIN A1c (test code = 88968) 6.9 % HEMOGLOBIN [id number] 00:00:00 Test Item Value Reference Range Interpretation Comments HEMOGLOBIN A1c (test code = 15505) 6.9 % LIPID [id number] 00:00:00 Test Item Value Reference Range Interpretation Comments CHOLESTEROL (test code = 2210) 309 MG/DL TRIGLYCERIDES (test code = 2232) 587 MG/DL HDL CHOLESTEROL (test code = 48 MG/DL 2220) CALC LDL CHOL (test code = 2237) (NOTE) MG/DL RISK RATIO LDL/HDL (test code = (NOTE) RATIO 2238) LIPID [id number] 00:00:00 Test Item Value Reference Range Interpretation [...] THYROX. BIND. CAPAC. (test 1.5 code = 21748) T4 (THYROXINE) (test code = <1.2 UG/DL 2819) CORRECTED T4 (FTI) (test code (NOTE) UG/DL = 2820) TSH, THIRD GENERATION (test >100.000 UIU/ML code = 2821) THYROID II PROFILE (TU,T4,FTI,TSH) [ADDED]2019-10-26 00:00:00 Test Item Value Reference Range Interpretation Comments T-UPTAKE (test code = 2817) 18.4 % THYROX. BIND. CAPAC. (test 1.5 code = 84884) T4 (THYROXINE) (test code = <1.2 UG/DL 2819) CORRECTED T4 (FTI) (test code (NOTE) UG/DL = 2820) TSH, THIRD GENERATION (test >100.000 UIU/ML code = 2821) HEMOGLOBIN [id number] 09:52:00 Test Item Value Reference Range Interpretation Comments HEMOGLOBIN A1C (BEAKER) (test code = 6.6 % 4.3-6.1 H 368) Hall Coordinator ID - [id number] 09:08:00 Test Item Value Reference Range Interpretation Comments PROSTATE SPECIFIC ANTIGEN (BEAKER) 0.5 ng/mL 0.0-4.0 (test code = 844) Hall Coordinator ID - [place] FLIPID [id number] 08:00:00 Test Item Value Reference Range Interpretation [...] Borderline 130-159 High 160-189 Very High >=190 Hall Coordinator ID - SIMONE CTHYROID II PROFILE (T3U, T4, T7, TSH)2019-07-05 00:00:00 Test Item Value Reference Range Interpretation Comments T-UPTAKE (test code = 2817) 24.3 % THYROX. BIND. CAPAC. (test 1.3 code = 85766) T4 (THYROXINE) (test code = 3.6 UG/DL 2819) CORRECTED T4 (FTI) (test code 2.8 UG/DL = 2820) TSH, THIRD GENERATION (test >100.000 UIU/ML code = 2821) THYROID II PROFILE (T3U, T4, T7, TSH)2019-07-05 00:00:00 Test Item Value Reference Range Interpretation Comments T-UPTAKE (test code = 2817) 24.3 % THYROX. BIND. CAPAC. (test 1.3 code = 10626) T4 (THYROXINE) (test code = 3.6 UG/DL 2819) CORRECTED T4 (FTI) (test code 2.8 UG/DL = 2820) TSH, THIRD GENERATION (test >100.000 UIU/ML code = 2821) THYROID II PROFILE (T3U, T4, T7, TSH)2019-07-05 00:00:00 Test Item Value Reference Range Interpretation Comments T-UPTAKE (test code = 2817) 24.3 % THYROX. BIND. CAPAC. (test 1.3 code = 45671) T4 (THYROXINE) (test code = 3.6 UG/DL 2819) CORRECTED T4 (FTI) (test code 2.8 UG/DL = 2820) TSH, THIRD GENERATION (test >100.000 UIU/ML code = 2821) THYROID II PROFILE (T3U, T4, T7, TSH)2019-07-05 00:00:00 Test Item Value Reference Range Interpretation Comments T-UPTAKE (test code = 2817) 24.3 % THYROX. BIND. CAPAC. (test 1.3 code = 73249) T4 (THYROXINE) (test code = 3.6 UG/DL 2819) CORRECTED T4 (FTI) (test code 2.8 UG/DL = 2820) TSH, THIRD GENERATION (test >100.000 UIU/ML code = 2821) THYROID II PROFILE (T3U, T4, T7, TSH)2019-07-05 00:00:00 Test Item Value Reference Range Interpretation Comments T-UPTAKE (test code = 2817) 24.3 % THYROX. BIND. CAPAC. (test 1.3 code = 13750) T4 (THYROXINE) (test code = 3.6 UG/DL 2819) CORRECTED T4 (FTI) (test code 2.8 UG/DL = 2820) TSH, THIRD GENERATION (test >100.000 UIU/ML code = 2821) THYROID II PROFILE (T3U, T4, T7, TSH)2019-07-05 00:00:00 Test Item Value Reference Range Interpretation Comments T-UPTAKE (test code = 2817) 24.3 % THYROX. BIND. CAPAC. (test 1.3 code = 67027) T4 (THYROXINE) (test code = 3.6 UG/DL 2819) CORRECTED T4 (FTI) (test code 2.8 UG/DL = 2820) TSH, THIRD GENERATION (test >100.000 UIU/ML code = 2821) THYROID II PROFILE (T3U, T4, T7, TSH)2019-07-05 00:00:00 Test Item Value Reference Range Interpretation Comments T-UPTAKE (test code = 2817) 24.3 % THYROX. BIND. CAPAC. (test 1.3 code = 32229) T4 (THYROXINE) (test code = 3.6 UG/DL 2819) CORRECTED T4 (FTI) (test code 2.8 UG/DL = 2820) TSH, THIRD GENERATION (test >100.000 UIU/ML code = 2821) THYROID II PROFILE (T3U, T4, T7, TSH)2019-07-05 00:00:00 Test Item Value Reference Range Interpretation Comments T-UPTAKE (test code = 2817) 24.3 % THYROX. BIND. CAPAC. (test 1.3 code = 25310) T4 (THYROXINE) (test code = 3.6 UG/DL 2819) CORRECTED T4 (FTI) (test code 2.8 UG/DL = 2820) TSH, THIRD GENERATION (test >100.000 UIU/ML code = 2821) THYROID II PROFILE (T3U, T4, T7, TSH)2019-07-05 00:00:00 Test Item Value Reference Range Interpretation Comments T-UPTAKE (test code = 2817) 24.3 % THYROX. BIND. CAPAC. (test 1.3 code = 06835) T4 (THYROXINE) (test code = 3.6 UG/DL 2819) CORRECTED T4 (FTI) (test code 2.8 UG/DL = 2820) TSH, THIRD GENERATION (test >100.000 UIU/ML code = 2821) THYROID II PROFILE (T3U, T4, T7, TSH)2019-07-05 00:00:00 Test Item Value Reference Range Interpretation Comments T-UPTAKE (test code = 2817) 24.3 % THYROX. BIND. CAPAC. (test 1.3 code = 32135) T4 (THYROXINE) (test code = 3.6 UG/DL 2819) CORRECTED T4 (FTI) (test code 2.8 UG/DL = 2820) TSH, THIRD GENERATION (test >100.000 UIU/ML code = 2821) THYROID II PROFILE (T3U, T4, T7, TSH)2019-07-05 00:00:00 Test Item Value Reference Range Interpretation Comments T-UPTAKE (test code = 2817) 24.3 % THYROX. BIND. CAPAC. (test 1.3 code = 11877) T4 (THYROXINE) (test code = 3.6 UG/DL 2819) CORRECTED T4 (FTI) (test code 2.8 UG/DL = 2820) TSH, THIRD GENERATION (test >100.000 UIU/ML code = 2821) THYROID II PROFILE (T3U, T4, T7, TSH)2019-07-05 00:00:00 Test Item Value Reference Range Interpretation Comments T-UPTAKE (test code = 2817) 24.3 % THYROX. BIND. CAPAC. (test 1.3 code = 99850) T4 (THYROXINE) (test code = 3.6 UG/DL 2819) CORRECTED T4 (FTI) (test code 2.8 UG/DL = 2820) TSH, THIRD GENERATION (test >100.000 UIU/ML code = 2821) THYROID II PROFILE (T3U, T4, T7, TSH)2019-07-05 00:00:00 Test Item Value Reference Range Interpretation Comments T-UPTAKE (test code = 2817) 24.3 % THYROX. BIND. CAPAC. (test 1.3 code = 38730) T4 (THYROXINE) (test code = 3.6 UG/DL 2819) CORRECTED T4 (FTI) (test code 2.8 UG/DL = 2820) TSH, THIRD GENERATION (test >100.000 UIU/ML code = 2821) THYROID II PROFILE (T3U, T4, T7, TSH)2019-07-05 00:00:00 Test Item Value Reference Range Interpretation Comments T-UPTAKE (test code = 2817) 24.3 % THYROX. BIND. CAPAC. (test 1.3 code = 06230) T4 (THYROXINE) (test code = 3.6 UG/DL 2819) CORRECTED T4 (FTI) (test code 2.8 UG/DL = 2820) TSH, THIRD GENERATION (test >100.000 UIU/ML code = 2821) THYROID II PROFILE (T3U, T4, T7, TSH)2019-07-05 00:00:00 Test Item Value Reference Range Interpretation Comments T-UPTAKE (test code = 2817) 24.3 % THYROX. BIND. CAPAC. (test 1.3 code = 77579) T4 (THYROXINE) (test code = 3.6 UG/DL 2819) CORRECTED T4 (FTI) (test code 2.8 UG/DL = 2820) TSH, THIRD GENERATION (test >100.000 UIU/ML code = 2821) URINE [id number] 14:35:00 Test Item Value Reference Range Interpretation Comments CULTURE (BEAKER) ENTEROCOCCUS A 10-19,000 c ol/mL (test code = 1095) FAECALIS Enterococ cus faecalis Ampicillin (test S code = 26) Levofloxacin (test S code = 22) Linezolid (test code S = 40) Nitrofurantoin (test S code = 23) Tetracycline (test R code = 2) Vancomycin (test S code = 13) 10-19,000 col/mL skin [id number] 10:31:00 Test Item Value Reference Range Interpretation Comments RPR SCREEN (BEAKER) (test code = Nonreactive Nonreactive 420) U/S, ABDOMINAL, [id number] 16:14:00Reason for Exam:->Kidney transplant evaluation; comment on [...] MDReport Verified Date/Time: 05/23/2019 16:14:42 Reading Location: [address] Radiology Reading Room RAD, CHEST, 2 [id number] 16:02:00 Reason for Exam:->Pre kidney transplant evaluation.FINAL [...] MDReport Verified Date/Time: 05/23/2019 16:02:27 Reading Location: [address] Radiology Reading Room CYTOMEGALOVIRUS ANTIBODY, [id number] 15:17:00 Test Item Value Reference Range Interpretation Comments CYTOMEGALOVIRUS, IGG (BEAKER) Positive Negative, Equivocal A (test code = 3429) CMV IgG Result Interpretation: </= 0.8 Al Negative 0.9-1.0 Al Equivocal >/=1.1 Al PositiveCYTOMEGALOVIRUS ANTIBODY, [id number] 15:17:00 Test Item Value Reference Range Interpretation Comments CYTOMEGALOVIRUS IGM ANTIBODY Negative Negative, Equivocal (BEAKER) (test code = 3437) CMV IgM Result Interpretation: </= 0.8 Al Negative 0.9-1.0 Al Equivocal >/= 1.1 Al PositiveEBV ANTIBODY, [id number] 15:17:00 Test Item Value Reference Range Interpretation Comments NIHARIKA HOOPER VIRAL CAPSID Positive Negative, Equivocal A ANTIGEN IGG (BEAKER) (test code = 3415) Niharika Hooper Viral Capsid Antigen IgG Result Interpretation: </= 0.8 Al Negative 0.9-1.0 Al Equivocal >/= 1.1 Al PositiveEBV ANTIBODY, [id number] 15:17:00 Test Item Value Reference Range Interpretation Comments NIHARIKA HOOPER VIRAL CAPSID Negative Negative, Equivocal ANTIGEN IGM (BEAKER) (test code = 3418) Niharika Hooper Viral Capsid Antigen IgM Result Interpretation: </= 0.8 Al Negative 0.9-1.0 Al Equivocal >/= 1.1 Al PositiveVARICELLA ZOSTER ANTIBODY, [id number] 15:17:00 Test Item Value Reference Range Interpretation Comments VARICELLA ZOSTER IGG (AL) (BEAKER) 3.4 (test code = 3197) VARICELLA ZOSTER RESULT INTERPRETATIONS: <=0.8 Al Nonreactive: Presumed non- immune to VZV 0.9-1.0Al Equivocal >=1.1 Al Reactive: Presumed immune to VZV HEPATITIS B SURFACE [id number] 12:59:00 Test Item Value Reference Range Interpretation Comments HEPATITIS B SURFACE ANTIBODY 31156.3 mIU/mL <8.0 H (BEAKER) (test code = 647) Hall Coordinator ID - TIKAEPATITIS B SURFACE [id number] 12:47:00 Test Item Value Reference Range Interpretation Comments HEPATITIS B SURFACE ANTIGEN (2) Nonreactive Nonreactive (BEAKER) (test code = 2585) Hall Coordinator ID - TIKAEPATITIS B CORE ANTIBODY, [id number] 12:47:00 Test Item Value Reference Range Interpretation Comments HEPATITIS B CORE IGM ANTIBODY Nonreactive Nonreactive (BEAKER) (test code = 645) Hall Coordinator ID - NANCYGHEPATITIS C [id number] 12:47:00 Test Item Value Reference Range Interpretation Comments HEPATITIS C ANTIBODY (BEAKER) Nonreactive Nonreactive (test code = 367) Hall Coordinator ID - TIKAIV-1 ANTIGEN WITH HIV-1/2 [id number] 12:47:00 Test Item Value Reference Range Interpretation Comments HIV-1 ANTIGEN WITH HIV 1\T\2 Nonreactive Nonreactive ANTIBODY (2) (BEAKER) (test code = 2586) Hall Coordinator ID - NANCYGPTH, [id number] 12:03:00 Test Item Value Reference Range Interpretation Comments PARATHYROID HORMONE INTACT 430.9 pg/mL 8.5-72.5 H (BEAKER) (test code = 577) Hall Coordinator ID - LACOMPREHENSIVE METABOLIC [id number] 11:56:00 Test Item Value Reference Range Interpretation [...] S NOT APPLICABLE FOR DIALYSIS PATIEN TS. Hall Coordinator ID - LAURIC [id number] 11:55:00 Test Item Value Reference Range Interpretation Comments URIC ACID (BEAKER) (test code = 5.5 mg/dL 2.6-7.2 773) Hall Coordinator ID - [id number] 11:55:00 Test Item Value Reference Range Interpretation Comments PHOSPHORUS (BEAKER) (test code = 5.5 mg/dL 2.3-4.7 H 604) Hall Coordinator ID - LAGAMMA GLUTAMYL TRANSFERASE (GGT)2019-05-23 11:55:00 Test Item Value Reference Range Interpretation Comments GAMMA GLUTAMYL TRANSFERASE (BEAKER) 20 U/L 9-64 (test code = 364) Hall Coordinator ID - LALACTATE DEHYDROGENASE (LDH)2019-05-23 11:55:00 Test Item Value Reference Range Interpretation Comments LACTATE DEHYDROGENASE (BEAKER) (test 249 U/L 125-220 H code = 635) Hall Coordinator ID - LAURINALYSIS W/ [id number] 11:43:00 Test Item Value Reference Range Interpretation [...] < /HPF SOURCE(BEAKER) (test code = 2795) Hall Coordinator ID - [auto]Hall Coordinator ID - techPT/[id number] 11:32:00 Test Item Value Reference Range Interpretation [...] 2.5-3.5 for patients wiht mechanical heart valves.PROTHROMBIN TIME/[id number] 11:31:00 Test Item Value Reference Range Interpretation [...] mechanical heart valves.CBC W/PLT COUNT & AUTO [id number] 11:27:00 Test Item Value Reference Range Interpretation [...] 0-1 PERCENT (BEAKER) (test code = 2801) [id number] 00:00:00 Test Item Value Reference Range Interpretation Comments TSH, THIRD GENERATION (test >100.000 UIU/ML code = 2821) [id number] 00:00:00 Test Item Value Reference Range Interpretation Comments TSH, THIRD GENERATION (test >100.000 UIU/ML code = 2821) [id number] 00:00:00 Test Item Value Reference Range Interpretation Comments TSH, THIRD GENERATION (test >100.000 UIU/ML code = 2821) [id number] 00:00:00 Test Item Value Reference Range Interpretation Comments TSH, THIRD GENERATION (test >100.000 UIU/ML code = 2821) [id number] 00:00:00 Test Item Value Reference Range Interpretation Comments TSH, THIRD GENERATION (test >100.000 UIU/ML code = 2821) [id number] 00:00:00 Test Item Value Reference Range Interpretation Comments TSH, THIRD GENERATION (test >100.000 UIU/ML code = 2821) [id number] 00:00:00 Test Item Value Reference Range Interpretation Comments TSH, THIRD GENERATION (test >100.000 UIU/ML code = 2821) [id number] 00:00:00 Test Item Value Reference Range Interpretation Comments TSH, THIRD GENERATION (test >100.000 UIU/ML code = 2821) [id number] 00:00:00 Test Item Value Reference Range Interpretation Comments TSH, THIRD GENERATION (test >100.000 UIU/ML code = 2821) [id number] 00:00:00 Test Item Value Reference Range Interpretation Comments TSH, THIRD GENERATION (test >100.000 UIU/ML code = 2821) [id number] 00:00:00 Test Item Value Reference Range Interpretation Comments TSH, THIRD GENERATION (test >100.000 UIU/ML code = 2821) [id number] 00:00:00 Test Item Value Reference Range Interpretation Comments TSH, THIRD GENERATION (test >100.000 UIU/ML code = 2821) [id number] 00:00:00 Test Item Value Reference Range Interpretation Comments TSH, THIRD GENERATION (test >100.000 UIU/ML code = 2821) [id number] 00:00:00 Test Item Value Reference Range Interpretation Comments TSH, THIRD GENERATION (test >100.000 UIU/ML code = 2821) [id number] 00:00:00 Test Item Value Reference Range Interpretation Comments TSH, THIRD GENERATION (test >100.000 UIU/ML code = 2821) [id number] 00:00:00 Test Item Value Reference Range Interpretation Comments TSH, THIRD GENERATION (test >100.000 UIU/ML code = 2821) [id number] 00:00:00 Test Item Value Reference Range Interpretation Comments TSH, THIRD GENERATION (test >100.000 UIU/ML code = 2821) [id number] 00:00:00 Test Item Value Reference Range Interpretation Comments TSH, THIRD GENERATION (test >100.000 UIU/ML code = 2821) [id number] 00:00:00 Test Item Value Reference Range Interpretation Comments TSH, THIRD GENERATION (test >100.000 UIU/ML code = 2821) [id number] 00:00:00 Test Item Value Reference Range Interpretation Comments TSH, THIRD GENERATION (test >100.000 UIU/ML code = 2821) [id number] 00:00:00 Test Item Value Reference Range Interpretation Comments TSH, THIRD GENERATION (test >100.000 UIU/ML code = 2821) [id number] 00:00:00 Test Item Value Reference Range Interpretation Comments TSH, THIRD GENERATION (test >100.000 UIU/ML code = 2821) [id number] 00:00:00 Test Item Value Reference Range Interpretation Comments TSH, THIRD GENERATION (test >100.000 UIU/ML code = 2821) LIPID [id number] 00:00:00 Test Item Value Reference Range Interpretation Comments CHOLESTEROL (test code = 2210) 201 MG/DL TRIGLYCERIDES (test code = 2232) 227 MG/DL HDL CHOLESTEROL (test code = 2220) 52 MG/DL CALC LDL CHOL (test code = 2237) 104 MG/DL RISK RATIO LDL/HDL (test code = 1.99 RATIO 2238) LIPID [id number] 00:00:00 Test Item Value Reference Range Interpretation Comments CHOLESTEROL (test code = 2210) 201 MG/DL TRIGLYCERIDES (test code = 2232) 227 MG/DL HDL CHOLESTEROL (test code = 2220) 52 MG/DL CALC LDL CHOL (test code = 2237) 104 MG/DL RISK RATIO LDL/HDL (test code = 1.99 RATIO 2238) [id number] 00:00:00 Test Item Value Reference Range Interpretation Comments TSH, THIRD GENERATION (test >100.000 UIU/ML code = 2821) [id number] 00:00:00 Test Item Value Reference Range Interpretation Comments TSH, THIRD GENERATION (test >100.000 UIU/ML code = 2821) [id number] 00:00:00 Test Item Value Reference Range Interpretation Comments TSH, THIRD GENERATION (test >100.000 UIU/ML code = 2821) LIPID [id number] 00:00:00 Test Item Value Reference Range Interpretation Comments CHOLESTEROL (test code = 2210) 201 MG/DL TRIGLYCERIDES (test code = 2232) 227 MG/DL HDL CHOLESTEROL (test code = 2220) 52 MG/DL CALC LDL CHOL (test code = 2237) 104 MG/DL RISK RATIO LDL/HDL (test code = 1.99 RATIO 2238) LIPID [id number] 00:00:00 Test Item Value Reference Range Interpretation Comments CHOLESTEROL (test code = 2210) 201 MG/DL TRIGLYCERIDES (test code = 2232) 227 MG/DL HDL CHOLESTEROL (test code = 2220) 52 MG/DL CALC LDL CHOL (test code = 2237) 104 MG/DL RISK RATIO LDL/HDL (test code = 1.99 RATIO 2238) [id number] 00:00:00 Test Item Value Reference Range Interpretation Comments TSH, THIRD GENERATION (test >100.000 UIU/ML code = 2821) [id number] 00:00:00 Test Item Value Reference Range Interpretation Comments TSH, THIRD GENERATION (test >100.000 UIU/ML code = 2821) [id number] 00:00:00 Test Item Value Reference Range Interpretation Comments TSH, THIRD GENERATION (test >100.000 UIU/ML code = 2821) LIPID [id number] 00:00:00 Test Item Value Reference Range Interpretation Comments CHOLESTEROL (test code = 2210) 201 MG/DL TRIGLYCERIDES (test code = 2232) 227 MG/DL HDL CHOLESTEROL (test code = 2220) 52 MG/DL CALC LDL CHOL (test code = 2237) 104 MG/DL RISK RATIO LDL/HDL (test code = 1.99 RATIO 2238) LIPID [id number] 00:00:00 Test Item Value Reference Range Interpretation Comments CHOLESTEROL (test code = 2210) 201 MG/DL TRIGLYCERIDES (test code = 2232) 227 MG/DL HDL CHOLESTEROL (test code = 2220) 52 MG/DL CALC LDL CHOL (test code = 2237) 104 MG/DL RISK RATIO LDL/HDL (test code = 1.99 RATIO 2238) LIPID [id number] 00:00:00 Test Item Value Reference Range Interpretation Comments CHOLESTEROL (test code = 2210) 201 MG/DL TRIGLYCERIDES (test code = 2232) 227 MG/DL HDL CHOLESTEROL (test code = 2220) 52 MG/DL CALC LDL CHOL (test code = 2237) 104 MG/DL RISK RATIO LDL/HDL (test code = 1.99 RATIO 2238) [id number] 00:00:00 Test Item Value Reference Range Interpretation Comments TSH, THIRD GENERATION (test >100.000 UIU/ML code = 2821) [id number] 00:00:00 Test Item Value Reference Range Interpretation Comments TSH, THIRD GENERATION (test >100.000 UIU/ML code = 2821) [id number] 00:00:00 Test Item Value Reference Range Interpretation Comments TSH, THIRD GENERATION (test >100.000 UIU/ML code = 2821) [id number] 00:00:00 Test Item Value Reference Range Interpretation Comments TSH, THIRD GENERATION (test >100.000 UIU/ML code = 2821) [id number] 00:00:00 Test Item Value Reference Range Interpretation Comments TSH, THIRD GENERATION (test >100.000 UIU/ML code = 2821) LIPID [id number] 00:00:00 Test Item Value Reference Range Interpretation Comments CHOLESTEROL (test code = 2210) 201 MG/DL TRIGLYCERIDES (test code = 2232) 227 MG/DL HDL CHOLESTEROL (test code = 2220) 52 MG/DL CALC LDL CHOL (test code = 2237) 104 MG/DL RISK RATIO LDL/HDL (test code = 1.99 RATIO 2238) LIPID [id number] 00:00:00 Test Item Value Reference Range Interpretation Comments CHOLESTEROL (test code = 2210) 201 MG/DL TRIGLYCERIDES (test code = 2232) 227 MG/DL HDL CHOLESTEROL (test code = 2220) 52 MG/DL CALC LDL CHOL (test code = 2237) 104 MG/DL RISK RATIO LDL/HDL (test code = 1.99 RATIO 2238) [id number] 00:00:00 Test Item Value Reference Range Interpretation Comments TSH, THIRD GENERATION (test >100.000 UIU/ML code = 2821) [id number] 00:00:00 Test Item Value Reference Range Interpretation Comments TSH, THIRD GENERATION (test >100.000 UIU/ML code = 2821) [id number] 00:00:00 Test Item Value Reference Range Interpretation Comments TSH, THIRD GENERATION (test >100.000 UIU/ML code = 2821) LIPID [id number] 00:00:00 Test Item Value Reference Range Interpretation Comments CHOLESTEROL (test code = 2210) 201 MG/DL TRIGLYCERIDES (test code = 2232) 227 MG/DL HDL CHOLESTEROL (test code = 2220) 52 MG/DL CALC LDL CHOL (test code = 2237) 104 MG/DL RISK RATIO LDL/HDL (test code = 1.99 RATIO 2238) LIPID [id number] 00:00:00 Test Item Value Reference Range Interpretation Comments CHOLESTEROL (test code = 2210) 201 MG/DL TRIGLYCERIDES (test code = 2232) 227 MG/DL HDL CHOLESTEROL (test code = 2220) 52 MG/DL CALC LDL CHOL (test code = 2237) 104 MG/DL RISK RATIO LDL/HDL (test code = 1.99 RATIO 2238) [id number] 00:00:00 Test Item Value Reference Range Interpretation Comments TSH, THIRD GENERATION (test >100.000 UIU/ML code = 2821) [id number] 00:00:00 Test Item Value Reference Range Interpretation Comments TSH, THIRD GENERATION (test >100.000 UIU/ML code = 2821) [id number] 00:00:00 Test Item Value Reference Range Interpretation Comments TSH, THIRD GENERATION (test >100.000 UIU/ML code = 2821) LIPID [id number] 00:00:00 Test Item Value Reference Range Interpretation Comments CHOLESTEROL (test code = 2210) 201 MG/DL TRIGLYCERIDES (test code = 2232) 227 MG/DL HDL CHOLESTEROL (test code = 2220) 52 MG/DL CALC LDL CHOL (test code = 2237) 104 MG/DL RISK RATIO LDL/HDL (test code = 1.99 RATIO 2238) LIPID [id number] 00:00:00 Test Item Value Reference Range Interpretation Comments CHOLESTEROL (test code = 2210) 201 MG/DL TRIGLYCERIDES (test code = 2232) 227 MG/DL HDL CHOLESTEROL (test code = 2220) 52 MG/DL CALC LDL CHOL (test code = 2237) 104 MG/DL RISK RATIO LDL/HDL (test code = 1.99 RATIO 2238) [id number] 00:00:00 Test Item Value Reference Range Interpretation Comments TSH, THIRD GENERATION (test >100.000 UIU/ML code = 2821) [id number] 00:00:00 Test Item Value Reference Range Interpretation Comments TSH, THIRD GENERATION (test >100.000 UIU/ML code = 2821) [id number] 00:00:00 Test Item Value Reference Range Interpretation Comments TSH, THIRD GENERATION (test >100.000 UIU/ML code = 2821) LIPID [id number] 00:00:00 Test Item Value Reference Range Interpretation Comments CHOLESTEROL (test code = 2210) 201 MG/DL TRIGLYCERIDES (test code = 2232) 227 MG/DL HDL CHOLESTEROL (test code = 2220) 52 MG/DL CALC LDL CHOL (test code = 2237) 104 MG/DL RISK RATIO LDL/HDL (test code = 1.99 RATIO 2238) LIPID [id number] 00:00:00 Test Item Value Reference Range Interpretation Comments CHOLESTEROL (test code = 2210) 201 MG/DL TRIGLYCERIDES (test code = 2232) 227 MG/DL HDL CHOLESTEROL (test code = 2220) 52 MG/DL CALC LDL CHOL (test code = 2237) 104 MG/DL RISK RATIO LDL/HDL (test code = 1.99 RATIO 2238) [id number] 00:00:00 Test Item Value Reference Range Interpretation Comments TSH, THIRD GENERATION (test >100.000 UIU/ML code = 2821) [id number] 00:00:00 Test Item Value Reference Range Interpretation Comments TSH, THIRD GENERATION (test >100.000 UIU/ML code = 2821) [id number] 00:00:00 Test Item Value Reference Range Interpretation Comments TSH, THIRD GENERATION (test >100.000 UIU/ML code = 2821) COMPREHENSIVE METABOLIC [id number] 00:00:00 Test Item Value Reference Range Interpretation Comments GLUCOSE (test code = 2217) 103 MG/DL BUN (test code = 2208) 35 MG/DL CREATININE (test code = 2214) 6.37 MG/DL eGFR AMER. (test code 11 ML/MIN/1.73 = 56586) eGFR NON- AMER. (test 9 ML/MIN/1.73 code = 02875) CALC BUN/CREAT (test code = 5 RATIO [...] code = 2219) 10 U/L COMPREHENSIVE METABOLIC [id number] 00:00:00 Test Item Value Reference Range Interpretation Comments GLUCOSE (test code = 2217) 103 MG/DL BUN (test code = 2208) 35 MG/DL CREATININE (test code = 2214) 6.37 MG/DL eGFR AMER. (test code 11 ML/MIN/1.73 = 12192) eGFR NON- AMER. (test 9 ML/MIN/1.73 code = 87771) CALC BUN/CREAT (test code = 5 RATIO [...] (test code = 2219) 10 U/L LIPID [id number] 00:00:00 Test Item Value Reference Range Interpretation Comments CHOLESTEROL (test code = 2210) 240 MG/DL TRIGLYCERIDES (test code = 2232) 395 MG/DL HDL CHOLESTEROL (test code = 2220) 55 MG/DL CALC LDL CHOL (test code = 2237) 106 MG/DL RISK RATIO LDL/HDL (test code = 1.93 RATIO 2238) LIPID [id number] 00:00:00 Test Item Value Reference Range Interpretation Comments CHOLESTEROL (test code = 2210) 240 MG/DL TRIGLYCERIDES (test code = 2232) 395 MG/DL HDL CHOLESTEROL (test code = 2220) 55 MG/DL CALC LDL CHOL (test code = 2237) 106 MG/DL RISK RATIO LDL/HDL (test code = 1.93 RATIO 2238) CBC W/AUTO [id number] 00:00:00 Test Item Value Reference Range Interpretation [...] code = 1015) 327 K/UL CBC W/AUTO [id number] 00:00:00 Test Item Value Reference Range Interpretation [...] code = 1015) 327 K/UL CBC W/AUTO [id number] 00:00:00 Test Item Value Reference Range Interpretation [...] (test code = 1015) 327 K/UL HEMOGLOBIN [id number] 00:00:00 Test Item Value Reference Range Interpretation Comments HEMOGLOBIN A1c (test code = 64895) 6.2 % HEMOGLOBIN [id number] 00:00:00 Test Item Value Reference Range Interpretation Comments HEMOGLOBIN A1c (test code = 16076) 6.2 % HEMOGLOBIN [id number] 00:00:00 Test Item Value Reference Range Interpretation Comments HEMOGLOBIN A1c (test code = 33277) 6.2 % [id number] 00:00:00 Test Item Value Reference Range Interpretation Comments TSH, THIRD GENERATION (test >100.000 UIU/ML code = 2821) [id number] 00:00:00 Test Item Value Reference Range Interpretation Comments TSH, THIRD GENERATION (test >100.000 UIU/ML code = 2821) [id number] 00:00:00 Test Item Value Reference Range Interpretation Comments TSH, THIRD GENERATION (test >100.000 UIU/ML code = 2821) COMPREHENSIVE METABOLIC [id number] 00:00:00 Test Item Value Reference Range Interpretation Comments GLUCOSE (test code = 2217) 103 MG/DL BUN (test code = 2208) 35 MG/DL CREATININE (test code = 2214) 6.37 MG/DL eGFR AMER. (test code 11 ML/MIN/1.73 = 33014) eGFR NON- AMER. (test 9 ML/MIN/1.73 code = 67360) CALC BUN/CREAT (test code = 5 RATIO [...] code = 2219) 10 U/L COMPREHENSIVE METABOLIC [id number] 00:00:00 Test Item Value Reference Range Interpretation Comments GLUCOSE (test code = 2217) 103 MG/DL BUN (test code = 2208) 35 MG/DL CREATININE (test code = 2214) 6.37 MG/DL eGFR AMER. (test code 11 ML/MIN/1.73 = 32672) eGFR NON- AMER. (test 9 ML/MIN/1.73 code = 81576) CALC BUN/CREAT (test code = 5 RATIO [...] (test code = 2219) 10 U/L LIPID [id number] 00:00:00 Test Item Value Reference Range Interpretation Comments CHOLESTEROL (test code = 2210) 240 MG/DL TRIGLYCERIDES (test code = 2232) 395 MG/DL HDL CHOLESTEROL (test code = 2220) 55 MG/DL CALC LDL CHOL (test code = 2237) 106 MG/DL RISK RATIO LDL/HDL (test code = 1.93 RATIO 2238) LIPID [id number] 00:00:00 Test Item Value Reference Range Interpretation Comments CHOLESTEROL (test code = 2210) 240 MG/DL TRIGLYCERIDES (test code = 2232) 395 MG/DL HDL CHOLESTEROL (test code = 2220) 55 MG/DL CALC LDL CHOL (test code = 2237) 106 MG/DL RISK RATIO LDL/HDL (test code = 1.93 RATIO 2238) CBC W/AUTO [id number] 00:00:00 Test Item Value Reference Range Interpretation [...] code = 1015) 327 K/UL CBC W/AUTO [id number] 00:00:00 Test Item Value Reference Range Interpretation [...] code = 1015) 327 K/UL CBC W/AUTO [id number] 00:00:00 Test Item Value Reference Range Interpretation [...] (test code = 1015) 327 K/UL HEMOGLOBIN [id number] 00:00:00 Test Item Value Reference Range Interpretation Comments HEMOGLOBIN A1c (test code = 75573) 6.2 % HEMOGLOBIN [id number] 00:00:00 Test Item Value Reference Range Interpretation Comments HEMOGLOBIN A1c (test code = 23669) 6.2 % HEMOGLOBIN [id number] 00:00:00 Test Item Value Reference Range Interpretation Comments HEMOGLOBIN A1c (test code = 68854) 6.2 % [id number] 00:00:00 Test Item Value Reference Range Interpretation Comments TSH, THIRD GENERATION (test >100.000 UIU/ML code = 2821) [id number] 00:00:00 Test Item Value Reference Range Interpretation Comments TSH, THIRD GENERATION (test >100.000 UIU/ML code = 2821) [id number] 00:00:00 Test Item Value Reference Range Interpretation Comments TSH, THIRD GENERATION (test >100.000 UIU/ML code = 2821) COMPREHENSIVE METABOLIC [id number] 00:00:00 Test Item Value Reference Range Interpretation Comments GLUCOSE (test code = 2217) 103 MG/DL BUN (test code = 2208) 35 MG/DL CREATININE (test code = 2214) 6.37 MG/DL eGFR AMER. (test code 11 ML/MIN/1.73 = 95789) eGFR NON- AMER. (test 9 ML/MIN/1.73 code = 92804) CALC BUN/CREAT (test code = 5 RATIO [...] code = 2219) 10 U/L COMPREHENSIVE METABOLIC [id number] 00:00:00 Test Item Value Reference Range Interpretation Comments GLUCOSE (test code = 2217) 103 MG/DL BUN (test code = 2208) 35 MG/DL CREATININE (test code = 2214) 6.37 MG/DL eGFR AMER. (test code 11 ML/MIN/1.73 = 07570) eGFR NON- AMER. (test 9 ML/MIN/1.73 code = 21551) CALC BUN/CREAT (test code = 5 RATIO [...] (test code = 2219) 10 U/L LIPID [id number] 00:00:00 Test Item Value Reference Range Interpretation Comments CHOLESTEROL (test code = 2210) 240 MG/DL TRIGLYCERIDES (test code = 2232) 395 MG/DL HDL CHOLESTEROL (test code = 2220) 55 MG/DL CALC LDL CHOL (test code = 2237) 106 MG/DL RISK RATIO LDL/HDL (test code = 1.93 RATIO 2238) LIPID [id number] 00:00:00 Test Item Value Reference Range Interpretation Comments CHOLESTEROL (test code = 2210) 240 MG/DL TRIGLYCERIDES (test code = 2232) 395 MG/DL HDL CHOLESTEROL (test code = 2220) 55 MG/DL CALC LDL CHOL (test code = 2237) 106 MG/DL RISK RATIO LDL/HDL (test code = 1.93 RATIO 2238) COMPREHENSIVE METABOLIC [id number] 00:00:00 Test Item Value Reference Range Interpretation Comments GLUCOSE (test code = 2217) 103 MG/DL BUN (test code = 2208) 35 MG/DL CREATININE (test code = 2214) 6.37 MG/DL eGFR AMER. (test code 11 ML/MIN/1.73 = 06332) eGFR NON- AMER. (test 9 ML/MIN/1.73 code = 83788) CALC BUN/CREAT (test code = 5 RATIO [...] code = 2219) 10 U/L CBC W/AUTO [id number] 00:00:00 Test Item Value Reference Range Interpretation [...] (test code = 1015) 327 K/UL LIPID [id number] 00:00:00 Test Item Value Reference Range Interpretation Comments CHOLESTEROL (test code = 2210) 240 MG/DL TRIGLYCERIDES (test code = 2232) 395 MG/DL HDL CHOLESTEROL (test code = 2220) 55 MG/DL CALC LDL CHOL (test code = 2237) 106 MG/DL RISK RATIO LDL/HDL (test code = 1.93 RATIO 2238) CBC W/AUTO [id number] 00:00:00 Test Item Value Reference Range Interpretation [...] code = 1015) 327 K/UL CBC W/AUTO [id number] 00:00:00 Test Item Value Reference Range Interpretation [...] (test code = 1015) 327 K/UL HEMOGLOBIN [id number] 00:00:00 Test Item Value Reference Range Interpretation Comments HEMOGLOBIN A1c (test code = 95969) 6.2 % HEMOGLOBIN [id number] 00:00:00 Test Item Value Reference Range Interpretation Comments HEMOGLOBIN A1c (test code = 30733) 6.2 % HEMOGLOBIN [id number] 00:00:00 Test Item Value Reference Range Interpretation Comments HEMOGLOBIN A1c (test code = 70543) 6.2 % [id number] 00:00:00 Test Item Value Reference Range Interpretation Comments TSH, THIRD GENERATION (test >100.000 UIU/ML code = 2821) [id number] 00:00:00 Test Item Value Reference Range Interpretation Comments TSH, THIRD GENERATION (test >100.000 UIU/ML code = 2821) [id number] 00:00:00 Test Item Value Reference Range Interpretation Comments TSH, THIRD GENERATION (test >100.000 UIU/ML code = 2821) CBC W/AUTO [id number] 00:00:00 Test Item Value Reference Range Interpretation [...] code = 1015) 327 K/UL CBC W/AUTO [id number] 00:00:00 Test Item Value Reference Range Interpretation [...] (test code = 1015) 327 K/UL HEMOGLOBIN [id number] 00:00:00 Test Item Value Reference Range Interpretation Comments HEMOGLOBIN A1c (test code = 36913) 6.2 % HEMOGLOBIN [id number] 00:00:00 Test Item Value Reference Range Interpretation Comments HEMOGLOBIN A1c (test code = 94206) 6.2 % COMPREHENSIVE METABOLIC [id number] 00:00:00 Test Item Value Reference Range Interpretation Comments GLUCOSE (test code = 2217) 103 MG/DL BUN (test code = 2208) 35 MG/DL CREATININE (test code = 2214) 6.37 MG/DL eGFR AMER. (test code 11 ML/MIN/1.73 = 86327) eGFR NON- AMER. (test 9 ML/MIN/1.73 code = 34293) CALC BUN/CREAT (test code = 5 RATIO [...] code = 2219) 10 U/L COMPREHENSIVE METABOLIC [id number] 00:00:00 Test Item Value Reference Range Interpretation Comments GLUCOSE (test code = 2217) 103 MG/DL BUN (test code = 2208) 35 MG/DL CREATININE (test code = 2214) 6.37 MG/DL eGFR AMER. (test code 11 ML/MIN/1.73 = 25241) eGFR NON- AMER. (test 9 ML/MIN/1.73 code = 67832) CALC BUN/CREAT (test code = 5 RATIO [...] ALT (test code = 2219) 10 U/L [id number] 00:00:00 Test Item Value Reference Range Interpretation Comments TSH, THIRD GENERATION (test >100.000 UIU/ML code = 2821) [id number] 00:00:00 Test Item Value Reference Range Interpretation Comments TSH, THIRD GENERATION (test >100.000 UIU/ML code = 2821) LIPID [id number] 00:00:00 Test Item Value Reference Range Interpretation Comments CHOLESTEROL (test code = 2210) 240 MG/DL TRIGLYCERIDES (test code = 2232) 395 MG/DL HDL CHOLESTEROL (test code = 2220) 55 MG/DL CALC LDL CHOL (test code = 2237) 106 MG/DL RISK RATIO LDL/HDL (test code = 1.93 RATIO 2238) LIPID [id number] 00:00:00 Test Item Value Reference Range Interpretation Comments CHOLESTEROL (test code = 2210) 240 MG/DL TRIGLYCERIDES (test code = 2232) 395 MG/DL HDL CHOLESTEROL (test code = 2220) 55 MG/DL CALC LDL CHOL (test code = 2237) 106 MG/DL RISK RATIO LDL/HDL (test code = 1.93 RATIO 2238) CBC W/AUTO [id number] 00:00:00 Test Item Value Reference Range Interpretation [...] code = 1015) 327 K/UL CBC W/AUTO [id number] 00:00:00 Test Item Value Reference Range Interpretation [...] code = 1015) 327 K/UL CBC W/AUTO [id number] 00:00:00 Test Item Value Reference Range Interpretation [...] (test code = 1015) 327 K/UL HEMOGLOBIN [id number] 00:00:00 Test Item Value Reference Range Interpretation Comments HEMOGLOBIN A1c (test code = 24840) 6.2 % HEMOGLOBIN [id number] 00:00:00 Test Item Value Reference Range Interpretation Comments HEMOGLOBIN A1c (test code = 08498) 6.2 % HEMOGLOBIN [id number] 00:00:00 Test Item Value Reference Range Interpretation Comments HEMOGLOBIN A1c (test code = 14617) 6.2 % [id number] 00:00:00 Test Item Value Reference Range Interpretation Comments TSH, THIRD GENERATION (test >100.000 UIU/ML code = 2821) [id number] 00:00:00 Test Item Value Reference Range Interpretation Comments TSH, THIRD GENERATION (test >100.000 UIU/ML code = 2821) [id number] 00:00:00 Test Item Value Reference Range Interpretation Comments TSH, THIRD GENERATION (test >100.000 UIU/ML code = 2821) COMPREHENSIVE METABOLIC [id number] 00:00:00 Test Item Value Reference Range Interpretation Comments GLUCOSE (test code = 2217) 103 MG/DL BUN (test code = 2208) 35 MG/DL CREATININE (test code = 2214) 6.37 MG/DL eGFR AMER. (test code 11 ML/MIN/1.73 = 70699) eGFR NON- AMER. (test 9 ML/MIN/1.73 code = 88415) CALC BUN/CREAT (test code = 5 RATIO [...] code = 2219) 10 U/L COMPREHENSIVE METABOLIC [id number] 00:00:00 Test Item Value Reference Range Interpretation Comments GLUCOSE (test code = 2217) 103 MG/DL BUN (test code = 2208) 35 MG/DL CREATININE (test code = 2214) 6.37 MG/DL eGFR AMER. (test code 11 ML/MIN/1.73 = 56567) eGFR NON- AMER. (test 9 ML/MIN/1.73 code = 69416) CALC BUN/CREAT (test code = 5 RATIO [...] (test code = 2219) 10 U/L LIPID [id number] 00:00:00 Test Item Value Reference Range Interpretation Comments CHOLESTEROL (test code = 2210) 240 MG/DL TRIGLYCERIDES (test code = 2232) 395 MG/DL HDL CHOLESTEROL (test code = 2220) 55 MG/DL CALC LDL CHOL (test code = 2237) 106 MG/DL RISK RATIO LDL/HDL (test code = 1.93 RATIO 2238) LIPID [id number] 00:00:00 Test Item Value Reference Range Interpretation Comments CHOLESTEROL (test code = 2210) 240 MG/DL TRIGLYCERIDES (test code = 2232) 395 MG/DL HDL CHOLESTEROL (test code = 2220) 55 MG/DL CALC LDL CHOL (test code = 2237) 106 MG/DL RISK RATIO LDL/HDL (test code = 1.93 RATIO 2238) CBC W/AUTO [id number] 00:00:00 Test Item Value Reference Range Interpretation [...] code = 1015) 327 K/UL CBC W/AUTO [id number] 00:00:00 Test Item Value Reference Range Interpretation [...] code = 1015) 327 K/UL CBC W/AUTO [id number] 00:00:00 Test Item Value Reference Range Interpretation [...] (test code = 1015) 327 K/UL HEMOGLOBIN [id number] 00:00:00 Test Item Value Reference Range Interpretation Comments HEMOGLOBIN A1c (test code = 44052) 6.2 % HEMOGLOBIN [id number] 00:00:00 Test Item Value Reference Range Interpretation Comments HEMOGLOBIN A1c (test code = 29398) 6.2 % HEMOGLOBIN [id number] 00:00:00 Test Item Value Reference Range Interpretation Comments HEMOGLOBIN A1c (test code = 18648) 6.2 % [id number] 00:00:00 Test Item Value Reference Range Interpretation Comments TSH, THIRD GENERATION (test >100.000 UIU/ML code = 2821) [id number] 00:00:00 Test Item Value Reference Range Interpretation Comments TSH, THIRD GENERATION (test >100.000 UIU/ML code = 2821) [id number] 00:00:00 Test Item Value Reference Range Interpretation Comments TSH, THIRD GENERATION (test >100.000 UIU/ML code = 2821) COMPREHENSIVE METABOLIC [id number] 00:00:00 Test Item Value Reference Range Interpretation Comments GLUCOSE (test code = 2217) 103 MG/DL BUN (test code = 2208) 35 MG/DL CREATININE (test code = 2214) 6.37 MG/DL eGFR AMER. (test code 11 ML/MIN/1.73 = 39829) eGFR NON- AMER. (test 9 ML/MIN/1.73 code = 16121) CALC BUN/CREAT (test code = 5 RATIO [...] code = 2219) 10 U/L COMPREHENSIVE METABOLIC [id number] 00:00:00 Test Item Value Reference Range Interpretation Comments GLUCOSE (test code = 2217) 103 MG/DL BUN (test code = 2208) 35 MG/DL CREATININE (test code = 2214) 6.37 MG/DL eGFR AMER. (test code 11 ML/MIN/1.73 = 94993) eGFR NON- AMER. (test 9 ML/MIN/1.73 code = 16965) CALC BUN/CREAT (test code = 5 RATIO [...] (test code = 2219) 10 U/L LIPID [id number] 00:00:00 Test Item Value Reference Range Interpretation Comments CHOLESTEROL (test code = 2210) 240 MG/DL TRIGLYCERIDES (test code = 2232) 395 MG/DL HDL CHOLESTEROL (test code = 2220) 55 MG/DL CALC LDL CHOL (test code = 2237) 106 MG/DL RISK RATIO LDL/HDL (test code = 1.93 RATIO 2238) LIPID [id number] 00:00:00 Test Item Value Reference Range Interpretation Comments CHOLESTEROL (test code = 2210) 240 MG/DL TRIGLYCERIDES (test code = 2232) 395 MG/DL HDL CHOLESTEROL (test code = 2220) 55 MG/DL CALC LDL CHOL (test code = 2237) 106 MG/DL RISK RATIO LDL/HDL (test code = 1.93 RATIO 2238) CBC W/AUTO [id number] 00:00:00 Test Item Value Reference Range Interpretation [...] code = 1015) 327 K/UL CBC W/AUTO [id number] 00:00:00 Test Item Value Reference Range Interpretation [...] code = 1015) 327 K/UL CBC W/AUTO [id number] 00:00:00 Test Item Value Reference Range Interpretation [...] (test code = 1015) 327 K/UL HEMOGLOBIN [id number] 00:00:00 Test Item Value Reference Range Interpretation Comments HEMOGLOBIN A1c (test code = 23245) 6.2 % HEMOGLOBIN [id number] 00:00:00 Test Item Value Reference Range Interpretation Comments HEMOGLOBIN A1c (test code = 96403) 6.2 % HEMOGLOBIN [id number] 00:00:00 Test Item Value Reference Range Interpretation Comments HEMOGLOBIN A1c (test code = 41977) 6.2 % [id number] 00:00:00 Test Item Value Reference Range Interpretation Comments TSH, THIRD GENERATION (test >100.000 UIU/ML code = 2821) [id number] 00:00:00 Test Item Value Reference Range Interpretation Comments TSH, THIRD GENERATION (test >100.000 UIU/ML code = 2821) [id number] 00:00:00 Test Item Value Reference Range Interpretation Comments TSH, THIRD GENERATION (test >100.000 UIU/ML code = 2821) COMPREHENSIVE METABOLIC [id number] 00:00:00 Test Item Value Reference Range Interpretation Comments GLUCOSE (test code = 2217) 103 MG/DL BUN (test code = 2208) 35 MG/DL CREATININE (test code = 2214) 6.37 MG/DL eGFR AMER. (test code 11 ML/MIN/1.73 = 95307) eGFR NON- AMER. (test 9 ML/MIN/1.73 code = 66323) CALC BUN/CREAT (test code = 5 RATIO [...] code = 2219) 10 U/L COMPREHENSIVE METABOLIC [id number] 00:00:00 Test Item Value Reference Range Interpretation Comments GLUCOSE (test code = 2217) 103 MG/DL BUN (test code = 2208) 35 MG/DL CREATININE (test code = 2214) 6.37 MG/DL eGFR AMER. (test code 11 ML/MIN/1.73 = 04817) eGFR NON- AMER. (test 9 ML/MIN/1.73 code = 33437) CALC BUN/CREAT (test code = 5 RATIO [...] (test code = 2219) 10 U/L LIPID [id number] 00:00:00 Test Item Value Reference Range Interpretation Comments CHOLESTEROL (test code = 2210) 240 MG/DL TRIGLYCERIDES (test code = 2232) 395 MG/DL HDL CHOLESTEROL (test code = 2220) 55 MG/DL CALC LDL CHOL (test code = 2237) 106 MG/DL RISK RATIO LDL/HDL (test code = 1.93 RATIO 2238) LIPID [id number] 00:00:00 Test Item Value Reference Range Interpretation Comments CHOLESTEROL (test code = 2210) 240 MG/DL TRIGLYCERIDES (test code = 2232) 395 MG/DL HDL CHOLESTEROL (test code = 2220) 55 MG/DL CALC LDL CHOL (test code = 2237) 106 MG/DL RISK RATIO LDL/HDL (test code = 1.93 RATIO 2238) CBC W/AUTO [id number] 00:00:00 Test Item Value Reference Range Interpretation [...] code = 1015) 327 K/UL CBC W/AUTO [id number] 00:00:00 Test Item Value Reference Range Interpretation [...] code = 1015) 327 K/UL CBC W/AUTO [id number] 00:00:00 Test Item Value Reference Range Interpretation [...] (test code = 1015) 327 K/UL HEMOGLOBIN [id number] 00:00:00 Test Item Value Reference Range Interpretation Comments HEMOGLOBIN A1c (test code = 20770) 6.2 % HEMOGLOBIN [id number] 00:00:00 Test Item Value Reference Range Interpretation Comments HEMOGLOBIN A1c (test code = 70212) 6.2 % HEMOGLOBIN [id number] 00:00:00 Test Item Value Reference Range Interpretation Comments HEMOGLOBIN A1c (test code = 95717) 6.2 % [id number] 00:00:00 Test Item Value Reference Range Interpretation Comments TSH, THIRD GENERATION (test >100.000 UIU/ML code = 2821) [id number] 00:00:00 Test Item Value Reference Range Interpretation Comments TSH, THIRD GENERATION (test >100.000 UIU/ML code = 2821) [id number] 00:00:00 Test Item Value Reference Range Interpretation Comments TSH, THIRD GENERATION (test >100.000 UIU/ML code = 2821)
--- NOTE | 2022-09-14 22:19 | RAD REPORT ---
EXAM DESCRIPTION: RAD - Chest Single View - 09/14/2022 10:14 pm CLINICAL HISTORY: CHEST PAIN Chest pain. COMPARISON: Chest Single View dated 08/20/2022; Chest Single View dated 08/19/2022; Chest Pa And Lat ( 2 Views) dated 06/15/2022; Chest Single View dated 06/09/2022 FINDINGS: Portable technique limits examination quality. The lungs are emphysematous but grossly clear. The heart is normal in size. No displaced fractures. IMPRESSION: Mild COPD.
[2022-09-14 23:02] LABS: Arterial Blood Carboxyhemoglob 0.9 % (0-1.5); Blood Gas Oxyhemoglobin 85.5 % (94-97); Blood O2 Saturation 88.3 % (92-98.5)
[2022-09-14] MEDS ORDERED: IPRATROPIUM BROM 0.5MG/2.5ML ONE (23:02)
[2022-09-14] MEDS ORDERED: ALBUTEROL 2.5 MG/3 ML NEB SOL ONE (23:02)
[2022-09-14 23:40] LABS: Absolute Lymphocytes (CBC) 1.4 K/uL (0.7-4.9); Hematocrit 31.6 % (39.6-49.0); Lymphocytes % 14.7 % (15.3-44.8); MCV 96.6 fL (80-100); MPV 7.3 fL (7.6-11.3); RBC Red Blood Cell Count 3.27 M/uL (4.33-5.43)
[2022-09-14 23:42] LABS: Protime INR 0.96
[2022-09-15 00:21] LABS: Albumin 3.8 g/dL (3.4-5.0); Bilirubin Direct 0.1 mg/dL (0-0.2); Bilirubin Indirect, Calculated 0.4 mg/dL (0.2-0.8); Bilirubin Total 0.5 mg/dL (0.2-1.0); Protein, Total 8.1 g/dL (6.4-8.2); Troponin High Sensitivity 28.4 pg/mL (<58.9)
--- NOTE | 2022-09-15 00:47 | ER ---
Nurse's Notes [facility] Name: Alejandro Dunbar Age: 57 yrs Sex: Male : 1965 Arrival Date: 09/14/2022 Time: 20:49 Bed 18 Private MD: Diagnosis: Dyspnea, unspecified;Chronic COPD, dyspnea on exertion, end-stage renal disease on hemodialysis, moderate physical deconditioning, obesity hypoventilation syndrome, oxygen dependence at home Presentation: 09/14 21:03 Chief complaint: Patient states: "I have been short of breath for a few days". as6 Coronavirus screen: At this time, the client does not indicate any symptoms associated with coronavirus-19. Ebola Screen: No symptoms or risks identified at this time. Initial Sepsis Screen: Does the patient meet any 2 criteria? No. Patient's initial sepsis screen is negative. Does the patient have a suspected source of infection? No. Patient's initial sepsis screen is negative. Risk Assessment: Do you want to hurt yourself or someone else? Patient reports no desire to harm self or others. Onset of symptoms was September 12, 2022. 21:03 Method Of Arrival: Ambulatory as6 21:03 Acuity: KERRI 3 as6 Historical: - Allergies: 21:05 No Known Allergies; as6 - PMHx: 21:05 Diabetes - NIDDM; Dialysis; High Cholesterol; Hypertension; Hypothyroidism; as6 - Immunization history:: Client reports having NOT received the Covid vaccine. - Social history:: Smoking status: Patient denies any tobacco usage or history of. Screenin/16 00:02 Abuse screen: Denies threats or abuse. Denies injuries from another. Nutritional aa9 screening: No deficits noted. Tuberculosis screening: No symptoms or risk factors identified. 00:54 [facility] ED Fall Risk Assessment (Adult) History of falling in the last 3 months, aa9 including since admission No falls in past 3 months (0 pts) Confusion or Disorientation No (0 pts) Intoxicated or Sedated No (0 pts) Impaired Gait No (0 pts) Mobility Assist Device Used No (0 pt) Altered Elimination No (0 pt) Score/Fall Risk Level 0 - 2 = Low Risk Oriented to surroundings, Maintained a safe environment, Educated pt \\T\\ family on fall prevention, incl call for assistance when getting out of bed. Assessment: 09/14 23:30 General: Appears in no apparent distress. comfortable, obese, Behavior is cooperative, aa9 anxious. 23:30 Pain: Denies pain. Cardiovascular: Rhythm is regular. Cardiovascular: Dialysis shunt: aa9 in the dorsal aspect of left forearm, with palpable thrill, with auscultated bruit, with no erythema, with no edema, no bleeding noted. Respiratory: Airway is patent Respiratory effort is even, unlabored. GI: Abdomen is obese. : No signs and/or symptoms were reported regarding the genitourinary system. Derm: Skin is intact, is healthy with good turgor. 09/15 00:10 Reassessment: Patient appears in no apparent distress at this time. pt eyes closed, aa9 breathing equal and regular, snoring is heard, pt O2 sat dropped down to 76 RA, pt woken up O2 sat at 96 RA, placed on 2L \\T\\ NC. 00:53 Neuro: Level of Consciousness is awake, alert, obeys commands. Respiratory: aa9 00:54 Reassessment: Patient appears in no apparent distress at this time. Patient and/or aa9 family updated on plan of care and expected duration. Pain level reassessed. Patient is alert, oriented x 3, equal unlabored respirations, skin warm/dry/pink. Patient states feeling better. Vital Signs: 09/14 21:03 BP 154 / 72; Pulse 68; Resp 18 S; Temp 97.6(TE); Pulse Ox 93% on R/A; Weight 74.84 kg as6 (R); Height 5 ft. 4 in. (R); Pain 0/10; 23:30 BP 134 / 60; Pulse 61; Pulse Ox 94% on R/A; aa9 09/15 00:22 BP 151 / 47; Pulse 68; Resp 18 S; Pulse Ox 97% on 2 lpm NC; aa9 00:54 BP 143 / 67; Pulse 64; Resp 18; Temp 98.7; Pulse Ox 95% on R/A; aa9 09/14 21:03 Body Mass Index 28.32 (74.84 kg, 162.56 cm) as6 09/14 21:03 Pain Scale: Adult as6 ED Course: 09/14 20:52 Patient arrived in ED. ja2 20:56 Jacob Da Silva MD is Attending Physician. sp4 21:05 Triage completed. as6 21:08 Arm band placed on. as6 22:15 XRAY Chest (1 view) In Process Unspecified. EDMS 22:38 Tri Slaughter, RN is Primary Nurse. aa9 23:14 Inserted saline lock: 20 gauge in right antecubital area, using aseptic technique. aa9 Blood collected. 23:22 Basic Metabolic Panel Sent. aa9 23:22 CBC with Diff Sent. aa9 23:57 Pulse ox on. NIBP on. Warm blanket given. aa9 09/15 00:02 Patient has correct armband on for positive identification. Bed in low position. Call aa9 light in reach. Side rails up X 1. 00:44 Justice Gonzales MD is Referral Physician. sp4 00:53 No provider procedures requiring assistance completed. IV discontinued, intact, aa9 bleeding controlled, No redness/swelling at site. Pressure dressing applied. Administered Medications: 09/14 23:22 Drug: DuoNeb Nebulize (3:1) (2.5 mg - 0.5 mg) 3 ml Route: Nebulizer; aa9 09/15 00:54 Follow up: Response: No adverse reaction aa9 Medication: 00:53 VIS not applicable for this client. aa9 Outcome: 00:46 Discharge ordered by . sp4 00:53 Discharged to home ambulatory. aa9 00:53 Condition: stable 00:53 Discharge instructions given to patient, Instructed on discharge instructions, follow up and referral plans. medication usage, Demonstrated understanding of instructions, follow-up care, medications, Prescriptions given X 1. 00:55 Patient left the ED. aa9 Signatures: Dispatcher [employer] EDME Eleni Eisenberg Ashby, RN RN as6 Tri Slaughter, RN RN aa9 Jacob Da Silva MD MD sp4
--- NOTE | 2022-09-15 00:48 | EDPHYS ---
Physician Documentation [facility] Name: Alejandro Dunbar Age: 57 yrs Sex: Male : 1965 Arrival Date: 09/14/2022 Time: 20:49 Bed 18 Private MD: ED Physician Jacob Da Silva HPI: 09/14 20:57 This 57 yrs old Male presents to ER via Unassigned with complaints of sp4 Breathing Difficulty. 22:54 Patient is a very pleasant male with history of end-stage renal disease on hemodialysis sp4 Wednesday history of hypothyroidism, diabetes mellitus type 2, history of hyperkalemia, history of prior respiratory failure with hypoxia, pulmonary edema, presents with worsening dyspnea in the past 3 days. Patient reported no other symptoms and denied chest pain. Patient was admitted here on 05/31/2022 through 06/11/2022 for pulmonary edema, acute respiratory failure, hypoxia, hyperkalemia, diabetes type 2, end-stage renal disease, hypothyroidism. At that time patient was managed with BiPAP and dialysis. He was given urgent dialysis also given Kayexalate and other medications for hyperkalemia. Diabetes was managed with sliding scale insulin. Hypothyroidism was managed with IV Synthroid. And patient was upgraded to Synthroid p.o. 150 mcg daily. Patient also has some inspiratory stridor with history of subglottic swelling and narrowing. And patient was evaluated by ENT. Patient has a history of prior tracheostomy. ENT has scoped patient while hospitalized and treated patient with steroids and H1/H2 blockers patient was discharged with BiPAP at home.. Patient's medications include Manning 10 as needed pain, sevelamer, trazodone, amlodipine, benzonatate, cetirizine, docusate, vitamin D2, Pepcid, fluticasone, folic acid, gabapentin, DuoNebs, Synthroid, sennosides, Sitagliptin.. While in the hospital ENT investigated patient with suspected allergic angioedema. Patient was managed with H1 and H2 blockers. And the ENT advised food and inhalant allergy testing. No tracheostomy was deemed necessary. ENT advised patient to sleep with his head elevated. Hypothyroidism Synthroid was upgraded 150 mcg daily. For obstructive sleep apnea patient was advised to use BiPAP. Historical: - Allergies: 21:05 No Known Allergies; as6 - PMHx: 21:05 Diabetes - NIDDM; Dialysis; High Cholesterol; Hypertension; Hypothyroidism; as6 - Immunization history:: Client reports having NOT received the Covid vaccine. - Social history:: Smoking status: Patient denies any tobacco usage or history of. ROS: 23:01 Constitutional: Negative for fever, chills, and weight loss, Eyes: Negative for injury, sp4 pain, redness, and discharge, ENT: Negative for injury, pain, and discharge, Neck: Negative for injury, pain, and swelling, Cardiovascular: Negative for chest pain, palpitations, and edema, Respiratory: Negative for cough, wheezing, and pleuritic chest pain, positive for dyspnea Abdomen/GI: Negative for abdominal pain, nausea, vomiting, diarrhea, and constipation, Back: Negative for injury and pain, : Negative for injury, bleeding, discharge, and swelling, MS/Extremity: Negative for injury and deformity, Skin: Negative for injury, rash, and discoloration, Neuro: Negative for headache, weakness, numbness, tingling, and seizure, Psych: Negative for depression, anxiety, Allergy/Immunology: Negative for hives, rash, and allergies Endocrine: Negative for neck swelling, polydipsia, polyuria, polyphagia, and weight changes Hematologic/Lymphatic: Negative for swollen nodes, abnormal bleeding, and unusual bruising Exam: 23:01 Constitutional: This is a well developed, well nourished patient who is awake, alert, sp4 and in no acute distress. Chronically ill-appearing male, overweight, physically deconditioned Head/Face: Normocephalic, atraumatic. Eyes: Pupils equal round and reactive to light, extra-ocular motions intact. Lids and lashes normal. Conjunctiva and sclera are not injected. Cornea within normal limits. Periorbital areas with no swelling, redness, or edema. ENT: Nares patent. No nasal discharge, no septal abnormalities noted. Tympanic membranes are normal and external auditory canals are clear. Oropharynx with no redness, swelling, or masses, exudates, or evidence of obstruction, uvula midline. Mucous membranes moist. Neck: Trachea midline, no thyromegaly or masses palpated, and no cervical lymphadenopathy. Supple, full range of motion without nuchal rigidity, or vertebral point tenderness. No Meningismus. Chest/axilla: Normal chest wall appearance and motion. Nontender with no deformity. No lesions are appreciated. Cardiovascular: Regular rate and rhythm with a normal S1 and S2. No gallops, murmurs, or rubs. Normal PMI, no JVD. No pulse deficits. There is a left arm dialysis fistula palpable for thrill Respiratory: Lungs have equal breath sounds bilaterally, clear to auscultation and percussion. No rales, rhonchi or wheezes noted. No increased work of breathing, no retractions or nasal flaring. Abdomen/GI: Soft, non-tender, with normal bowel sounds. No distension or tympany. No guarding or rebound. No evidence of tenderness throughout. Back: No spinal tenderness. No costovertebral tenderness. Skin: Warm, dry with normal turgor. Normal color with no rashes, no lesions, and no evidence of cellulitis. MS/ Extremity: Pulses equal, no cyanosis. Neurovascular intact. Full, normal range of motion. Neuro: Awake and alert, GCS 15, oriented to person, place, time, and situation. Cranial nerves II-XII grossly intact. Motor strength 5/5 in all extremities. Sensory grossly intact. Psych: Awake, alert, with orientation to person, place and time. Behavior, mood, and affect are within normal limits 23:41 ECG was reviewed by the Attending Physician. EG time 2312, there is normal sinus rhythm sp4 at rate of 62, there is no ST elevation or depression, no ectopy, overall normal EKG. Vital Signs: 21:03 BP 154 / 72; Pulse 68; Resp 18 S; Temp 97.6(TE); Pulse Ox 93% on R/A; Weight 74.84 kg as6 (R); Height 5 ft. 4 in. (R); Pain 0/10; 23:30 BP 134 / 60; Pulse 61; Pulse Ox 94% on R/A; aa9 09/15 00:22 BP 151 / 47; Pulse 68; Resp 18 S; Pulse Ox 97% on 2 lpm NC; aa9 00:54 BP 143 / 67; Pulse 64; Resp 18; Temp 98.7; Pulse Ox 95% on R/A; aa9 09/14 21:03 Body Mass Index 28.32 (74.84 kg, 162.56 cm) 09/14 21:03 Pain Scale: Adult as6 MDM: 09/14 20:57 Patient medically screened. [facility] 09/15 00:40 Differential diagnosis: Anemia asthma, Bronchitis CHF exacerbation, Chronic Obstructive sp4 Pulmonary Disease pneumonia, Psychogenic pulmonary edema, reactive airway disease. Data reviewed: vital signs, nurses notes, old medical records, lab test result(s), EKG, radiologic studies, plain films. Consideration of Admission/Observation Patient was admitted/placed on observation. Escalation of care including admission/observation considered. ED course: Chest x-ray revealed emphysematous lungs but grossly clear, heart normal in size, no pulmonary edema. ED course: Labs revealed PCO2 52.7 which is actually higher than patient's baseline. Patient remains 100% on 2 L nasal cannula oxygenation in ER, patient states he is got oxygen tank at home he uses 1-1/2 L [id number] at home. Will provide as needed albuterol via nebulizer to be used every 4 hours as needed for shortness of breath,. Was revealed no significant electrolyte imbalance. Advised to pursue hemodialysis as scheduled this week. Otherwise patient is stable for discharge home we will refer patient to [facility] for follow-up. . 09/14 20:57 Order name: Basic Metabolic Panel; Complete Time: 00:35 [facility] 09/14 20:57 Order name: CBC with Diff; Complete Time: 23:53 [facility] 09/14 20:57 Order name: LFT's; Complete Time: 00:35 [facility] 09/14 20:57 Order name: NT PRO-BNP; Complete Time: 00:35 [facility] 09/14 20:57 Order name: PT-INR; Complete Time: 23:53 [facility] 09/14 20:57 Order name: Troponin HS; Complete Time: 00:35 [facility] 09/14 22:44 Order name: ABG; Complete Time: 23:40 [facility] 09/14 22:50 Order name: Influenza Screen (a \T\ B); Complete Time: 00:12 [facility] 09/14 22:50 Order name: COVID-19 SARS RT PCR; Complete Time: 00:35 [facility] 09/14 20:57 Order name: XRAY Chest (1 view); Complete Time: 22:50 [facility] 09/14 20:57 Order name: EKG; Complete Time: 20:58 [facility] 09/14 20:57 Order name: Cardiac monitoring; Complete Time: 23: sp4 09/14 20:57 Order name: EKG - Nurse/Tech; Complete Time: 23: sp4 09/14 20:57 Order name: IV Saline Lock; Complete Time: 23: sp4 09/14 20:57 Order name: Labs collected and sent; Complete Time: 23: sp4 09/14 20:57 Order name: O2 Per Protocol; Complete Time: 23: sp4 09/14 20:57 Order name: O2 Sat Monitoring; Complete Time: 23: sp4 EC/15 23:41 Rate is 62 beats/min. Rhythm is regular, Normal Sinus Rhythm. QRS [place] is Normal. [place] sp4 interval is normal. QRS interval is normal. QT interval is normal. T waves are Normal. No ST changes noted. Clinical impression: No evidence of ischemia. Interpreted by me. Administered Medications: 23:22 Drug: DuoNeb Nebulize (3:1) (2.5 mg - 0.5 mg) 3 ml Route: Nebulizer; aa9 09/15 00:54 Follow up: Response: No adverse reaction aa9 Disposition Summary: 09/15/22 00:46 Discharge Ordered Location: Home sp4 Problem: new sp4 Symptoms: have improved sp4 Condition: Stable sp4 Diagnosis - Dyspnea, unspecified sp4 - Chronic COPD, dyspnea on exertion, end-stage renal disease on hemodialysis, sp4 moderate physical deconditioning, obesity hypoventilation syndrome, oxygen dependence at home Followup: sp4 - With: Justice Gonzales MD - When: 7 - 10 days - Reason: Recheck today's complaints Discharge Instructions: - Discharge Summary Sheet sp4 - Shortness of Breath, Adult, [id number] sp4 Prescriptions: - Albuterol Sulfate 2.5 mg /3 mL (0.083 %) Inhalation Solution for Nebulization - inhale 1 unit by NEBULIZATION route every 4 hours As needed PRN Dyspnea, sp4 Dispense 50 respules or 2 boxes, Dispense with Nebulizer and adult nebulization mask; 50 unit; Refills: 0, Product Selection Permitted Signatures: Dispatcher [employer] Kash Escobedo RN RN as6 Tri Slaughter RN RN aa9 Jacob Da Silva MD MD sp4
[2022-09-15 01:24] VITALS: BP 143/67; TEMP 98.7; O2SAT 95
--- NOTE | 2022-09-15 13:48 | EKG ---
Test Date: 2022-09-14 Test Time: 23:12:17 [employer] Rep[employer] Technician: TIFFANY MEASUREMENT RESULTS: Intervals: Rate: 62 RI: 182 QRSD: 92 QT: 408 QTc: 414 [place]: P: 57 RI: 182 QRS: 60 T: 104 INTERPRETIVE STATEMENTS: Normal sinus rhythm Normal ECG Compared to ECG 08/19/2022 02:30:52 No significant changes Electronically Signed On 09-15-22 13:48:08 CDT by Joe Al
== END 2022-09-15 00:55 | disposition home or self-care (01) ==
LOC: ER 20:49
DX: J44.9 Chronic obstructive pulmonary disease, unspecified (principal); E11.22 Type 2 diabetes mellitus with diabetic chronic kidney disease; N18.6 End stage renal disease; Z99.2 Dependence on renal dialysis; E66.2 Morbid (severe) obesity with alveolar hypoventilation; Z72.3 Lack of physical exercise; Z99.81 Dependence on supplemental oxygen; E03.9 Hypothyroidism, unspecified; E78.00 Pure hypercholesterolemia, unspecified; Z20.822 Contact with and (suspected) exposure to COVID-19
CPT/HCPCS: 93005; 85025; 80048; 36415; 85610; 80076; 84484; 83880; 87804 ×2; 71045; 94640; 82805; 99284; U0003; J7613; J7644

== ENCOUNTER 2022-09-18 17:06 | Emergency (ER) | payer OTHER ==
--- OUTSIDE RECORDS SUMMARY | 2022-09-18 17:27 | XMS REPORT | Continuity of Care Document ---
:1965 Author Organization [facility] t Address [address] [facility] [address] [place] [address] Care Team Providers Name Role Phone Asked, No Pcp Primary Care Physician Unavailable [id number] Attending Clinician Unavailable IRMA NICHOLSON Attending Clinician Unavailable SYLVAIN OLIVARES Attending Clinician Unavailable HO DENNISON Attending Clinician Unavailable JACINTO SIMPSON Attending Clinician Unavailable JOSELUIS FERNANDEZ Attending Clinician Unavailable Doctor Unassigned, [place] Attending Clinician Unavailable GERRI VINCENT Attending Clinician [...] Clinician Unavailable HUNTER GIPSON Attending Clinician Unavailable [id number] Admitting Clinician Unavailable IRMA NICHOLSON Admitting Clinician Unavailable SYLVAIN OLIVARES Admitting Clinician Unavailable GERRI VINCENT Admitting Clinician Unavailable Leo Mcginnis Anav Admitting Clinician Unavailable BETTINA SHEEHAN Admitting Clinician Unavailable Payers Payer Name Policy Type Policy Number Effective Date Expiration Date S tammie MEDICARE A B [id number] 2018 00:00:00 CDC REVIEW [id number] 2019 00:00:00 MEDICAID [facility] [id number] 2019 00:00:00 WELLMED/UHC DUAL [id number] 2022 COMP HMO D SNP 00:00:00 MEDICAID OF [place] [id number] 2019 00:00:00 [facility] [id number] MEDICARE PART A [id number] 2018 \T\ B 00:00:00 Problems Condition Condition [...] disease) disease) ESRD (end ESRD (end Disease Recurre [facility] stage stage [facility]ce 3[facility]12 [facility] renal 00:[facility]: Medical disease) disease) 00 Center on on dialysis dialysis Secondary Secondary Disease Recurre 2019-[address] hyperparat hyperparat nce 3-12 [...] Disease Recurre [facility] diabetes diabetes nce 05-23 [facility] mellitus mellitus 00:00: Medica l with with 00 Center chronic chronic kidney kidney disease on disease on chronic chronic dialysis, dialysis, without without long-term long-term current current use of use of insulin insulin Pre-transp Pre-transp Disease Active [facility]ant 05-23 [facility] evaluation evaluation 00:00: Me dical for for 00 Center chronic chronic kidney kidney disease disease Essential Essential Disease Active [facility] hypertensi hypertensi 05-23 Ann-Marie kes on on 00:00: [address] Dizziness Dizziness Disease Active Uni vers 9-10 ity of 00:00: [place] [facility] Pre-syncop Pre-syncop Disease Active U nivers e e 9- ity of 00:00: [place] [facility] Elevated Elevated Disease Active 2017-05 Unive rs troponin I troponin I - it y of level level 00:00: [address] Branch Elevated Elevated Disease Active 2017-05 Unive rs brain brain -02 ity of natriureti natriureti [place] c peptide c peptide 00 Medi benjy (BNP) (BNP) Branch level level Essential Essential Disease Active 2017-05 Uni vers hypertensi hypertensi 1-02 it y of on on 00:00: [place] [facility] Dyslipidem Dyslipidem Disease Active 2017-05 U nivers ia ia - ity of 00:00: [place] [facility] Hypocalcem Hypocalcem Disease Active 2017-05 U nivers ia ia - ity of 00:00: [address] Branch Allergies, Adverse Reactions, Alerts Allergy [...] 13:07: 28 NKA Allergy Active 2021-05 ENCCLR 220 13:07: 28 NKA Allergy Active 2021-05 ENCCLR 2-20 13:07: 28 n Propensi Active ty to 11-06 adverse 00:00: reaction 00 to drug NO KNOWN Allergy Active [facility] ALLERGIE S NO KNOWN Drug Active Univers ALLERGIE Class ity of S [facility] Family History Family Member Diagnosis Comments Start Date Stop Date Source Natural father Alcohol abuse [facility] Natural sister Diabetes [facility] Natural sister Kidney disease [facility] Natural sister No Known Problem [facility] Natural brother No Known Problem [facility] Natural mother No Known Problem [facility] Social History Social Habit Start Date Stop Date Quantity Comments Source History SDOH [facility] Alcohol Comment Medical C enter History of tobacco Cigarette Smoker [facility] use [facility] Gender identity [facility] Sexual orientation [facility] History SDOH [facility] Alcohol Std Drinks Medica l Center History SDOH [facility] Alcohol Binge Medical [facility] [facility] Exposure to 2021-11-22 2021-12-02 Not sure University SARS-CoV-2 (event) 00:00:00 14:04:00 [facility] Alcohol intake 2019-12-17 2019-12-[address] [facility] 00:00:00 00:00:00 non-drinker of Medical Ce nter alcohol (finding) Cigarettes smoked 2019-12-14 2019-12-[address] [facility] current (pack per 00:00:00 00:00:00 Medical Center day) - Reported Cigarette 2019-12-14 2019-12-[address] [facility] pack-years 00:00:00 00:00:00 Medical Center History SDOH 2019-05-23 2019-05-[address] [facility] Alcohol Frequency 00:00:00 00:00:00 Medical Center History of Social 2019-01-05 2019-01-[address] function 00:00:00 00:00:00 Hospital Tobacco use and 2018-03-03 2018-03-03 Smokeless Universit y of exposure 00:00:00 00:00:00 tobacco non-user [facility] Sex Assigned At [birth year] BRITT Truong 00:00:00 00:00:00 Medical Center Smoking Status Start Date Stop Date Source Ex-smoker 2018-03-03 00:00:00 2018-03-03 00:00:00 [facility] Medications Ordered Filled Start Stop [...] 2021-05 No Unknown 2-13 00:00: 00 Dose 2021- No Unknown 2-13 00:00: 00 Dose 2021-05 No Unknown 2-13 00:00: 00 Dose 2021-05 No Unknown 2-13 00:00: 00 TAKE 1 2021-05 No CAPSULE 3 2-13 TIMES DAILY 00:00: NEEDED. 00 TAKE 2021-05 No TABLET BY 2-13 MOUTH EVERY 00:00: DAY FOR 10 00 DAYS TAKE 2021-05 No CAPSULE BY 2-13 MOUTH EVERY 00:00: DAY 00 Dose 2022-1 No Unknown 2-13 00:00: 00 Dose 2021-1 No Unknown 2-13 00:00: 00 Dose 2021-1 No Unknown 2-13 00:00: 00 Dose 2021-1 No Unknown 2-13 00:00: 00 Dose 2021-1 No Unknown 2-13 00:00: 00 Dose 2021-1 No Unknown 2-13 00:00: 00 Dose 2021-1 No Unknown 2-13 00:00: 00 levothyroxi 202-0 Yes [id number] 224ug Take 2 Univers ne 112 mcg 8-23 tablets by ity of tablet 00:00: mouth 00 every Medical morning. [place] levothyroxi 2021-0 Yes [id number] 224ug Take 2 Univers ne 112 mcg 8-23 tablets by ity of tablet 00:00: mouth 00 every Medical morning. [place] INSTILL 1 2021-0 No DROP INTO 8-10 BOTH EYES 00:00: EVERY 00 MORNING &lt 2022-0 No 800 8-10 00:00: 00 &lt 2022-0 No 50 8-10 00:00: 00 Dose 2022-0 No 75 Unknown 8-10 00:00: 00 &lt 2022-0 No 500 8-10 00:00: 00 &lt 2022-0 No 10 8-10 00:00: 00 Dose 2-0 [...] Dose 2022-0 No Unknown 8 00:00: 00 Dose 2022-0 No Unknown 8 00:00: 00 ATORVASTATI 2022-0 No N CALCIUM 8-08 80 MG TABS 00:00: 00 Dose 2022-0 No Unknown 808 00:00: 00 Dose 2022-0 No Unknown 8 00:00: 00 ATORVASTATI 2022-0 No N CALCIUM 8-08 80 MG TABS 00:00: 00 Dose 2022-0 No Unknown 8- 00:00: 00 &lt 2022-0 No 8-08 00:00: 00 &lt 2022-0 No 80 8-08 00:00: 00 Dose 2022-0 No Unknown 808 00:00: 00 &lt 2022-0 No 8-08 00:00: 00 &lt 2022-0 No 80 8-08 00:00: 00 Dose 2022-0 No Unknown 808 00:00: 00 TAKE 1 2-0 No 2 [...] 2022-0 No 8-05 00:00: 00 INSTILL 1 2022-0 [...] No 25 11-25 00:00: 00 TAKE 1 2021-0 No 2 TABLET 11-25 EVERY 6 00:00: HOURS BY [address] NEEDED FOR 7 DAYS. Dose 2022-0 No Unknown 11-25 00:00: 00 &lt 2022-0 No 25 11-25 00:00: 00 TAKE 1 2021-0 No 2 TABLET 11-25 EVERY 6 00:00: [...] BOTH EYES 00:00: EVERY 00 MORNING &lt 2-0 No 800 11-24 00:00: 00 Dose 2022-0 No 75 Unknown 11-24 00:00: 00 TAKE 1 2021-0 No 300 CAPSULE BY 7-25 MOUTH EVERY 00:00: DAY 00 &lt 2022-0 No 10 7 00:00: 00 &lt 2022-0 No 10 11-21 00:00: 00 INSTILL 1 2021-0 No DROP IN 7-22 BOTH EYES 00:00: EVERY DAY 00 &lt 2022-0 No 500 - 00:00: [...] 2-0 No 500 11-21 00:00: 00 Dose 2022-0 [...] &lt 2022-0 No 10 11-20 00:00: 00 INSTILL 1 2021-0 No DROP [...] DAY 00 Dose 2022-0 No 75 Unknown 7-07 00:00: 00 &lt 2022-0 No 6-21 00:00: [...] Januvia 25 2022-0 No 1mg mg tablet 4 00:00: 00 [...] 1 U nivers ne 200 mcg 3-03 08- tablet by ity of tablet 00:00: 00:00 mouth [place] 00 :00 every Medical morning. Branch UNITHROID 2021-0 Yes 1{tbl} Take 1 Univ ers 25 mcg 2-04 tablet by ity of tablet 00:00: mouth [place] 00 every Medical morning. Branch Januvia 25 2021-0 No 1mg mg tablet 2-04 00:00: 00 Dose 2022-0 No Unknown 2-04 00:00: 00 Dose 2022-0 No Unknown 2-04 00:00: 00 Januvia 25 2-0 No 1mg mg tablet 2-04 00:00: 00 Dose 2022-0 No Unknown 2-04 00:00: 00 Dose 2-0 No Unknown 2-04 00:00: 00 Janluia 25 2021-0 No 1mg mg tablet 2-04 [...] Dose 2022-0 No Unknown 2-04 00:00: 00 Mayuvia 25 2-0 No 1mg mg tablet 2-04 00:00: 00 Dose 2022-0 No Unknown 2-04 00:00: 00 Dose 2022-0 No Unknown 2-04 00:00: 00 Januvia 25 2-0 No 1mg mg tablet 2-04 00:00: 00 levothyroxi 2-0 No 1mcg ne 200 mcg 2-04 tablet 00:00: 00 levothyroxi 2-0 No 1mcg ne 25 mcg 2-04 tablet 00:00: 00 UNITHROID 2022-0 2- No 1{tbl} Take 1 Uni vers 25 mcg 2-08 08- tablet by ity of tablet 00:00: 00:00 mouth [place] 00 :00 every Medical morning. Branch lisinopriL 2021-0 Yes 5mg Take 5 mg Un capri 5 mg tablet 07 by mouth ity of 00:00: daily. [address] lisinopriL 2021-0 Yes 5mg Take 5 mg Un capri 5 mg tablet 07 by mouth ity of 00:00: daily. [address] lisinopriL 2021-0 Yes 5mg Take 5 mg Un capri 5 mg tablet 07 by mouth ity of 00:00: daily. [address] amlodipine 2020-05 No 1mg 10 mg 2-30 tablet 00:00: 00 amlodipine 2020-05 No 1mg 10 mg 2-30 tablet 00:00: 00 amlodipine 2020-05 No 1mg 10 mg 2-30 tablet 00:00: 00 Dose 2020-05 No Unknown 2-30 00:00: 00 Dose 2020-05 No Unknown 2-30 00:00: 00 amlodipine 2020-05 [...] mg 2-02 tablet 00:00: 00 lidocaine 4 2020-05 No 1% % topical 2-02 cream 00:00: 00 cyclobenzap 2020-05 No 1mg rine 10 mg 2-02 tablet 00:00: 00 Dose 2020- No Unknown 2-02 00:00: 00 Dose 2020- No Unknown 2-02 00:00: 00 Dose 2020-1 No Unknown 2-02 00:00: 00 Dose 2020- No Unknown 2-02 00:00: 00 lidocaine 4 2020-05 No 1% [...] tablet 21 Center calcium 2020-0 Yes 3{tbl} Q.[id number] Take [address] [facility] carbonate 8-15 [id number] tablets [facility] (TUMS) 500 17:30: 3D [...] 10 MG 17:30: nightly. Medical tablet 21 [place] calcium 2020-0 Yes 3{tbl} Q.[id number] Take [address] carbonate 8-15 [id number] tablets by [facility] (TUMS) 500 17:30: 3D mouth 3 Medi benjy mg chewable 21 (three) Cente r tablet times daily. furosemide 2020-0 Yes 20mg QD Take [address] (LASIX) 20 8-15 by mouth [facility] MG tablet 17:30: daily. Medica l [address] [place] [address] lovastatin 2020-0 Yes 10mg QD Take [address] (MEVACOR) 8-15 by mouth [facility] 10 MG 17:30: nightly. Medical tablet 21 [place] calcium 2020-0 Yes 3{tbl} Q.[id number] Take [address] carbonate 8-15 [id number] tablets by [facility] (TUMS) 500 17:30: 3D mouth 3 Medi benjy mg chewable 21 (three) Cente r tablet times daily. furosemide 2020-0 Yes 20mg QD Take [address] (LASIX) 20 8-15 by mouth [facility] MG tablet 17:30: daily. Medica [address] lovastatin 2020-0 Yes 10mg QD Take [address] (MEVACOR) 8-15 by mouth [facility] 10 MG 17:30: nightly. Medical tablet 21 [place] calcium 2020-0 Yes 3{tbl} Q.[id number] Take [address] carbonate 8-15 [id number] tablets by [facility] (TUMS) 500 17:30: 3D mouth 3 Medi benjy mg chewable 21 (three) Cente r tablet times daily. furosemide 2020-0 Yes 20mg QD Take [address] (LASIX) 20 8-15 by mouth [facility] MG tablet 17:30: daily. Medica [address] lovastatin 2020-0 Yes 10mg QD Take [address] (MEVACOR) 8-15 by mouth [facility] 10 MG 17:30: nightly. Medical tablet 21 [place] calcium 2020-0 Yes 3{tbl} Q.[id number] Take [address] carbonate 8-15 [id number] tablets by [facility] (TUMS) 500 17:30: 3D mouth 3 Medi benjy mg chewable 21 (three) Cente r tablet times daily. furosemide 2020-0 Yes 20mg QD Take [address] (LASIX) 20 8-15 by mouth [facility] MG tablet 17:30: daily. [address] lovastatin 2020-0 Yes 10mg QD Take [address] (MEVACOR) 8-15 by mouth [facility] 10 MG 17:30: nightly. Medical tablet [address] [place] [address] calcium 2020-0 Yes 3{tbl} Q.[id number] Take [address] carbonate 8-15 [id number] tablets by [facility] (TUMS) 500 17:30: 3D mouth 3 Medi benjy mg chewable 21 (three) Cente r tablet times daily. furosemide 2020-0 Yes 20mg QD Take [address] (LASIX) 20 8-15 by mouth [facility] MG tablet 17:30: daily. [address] lovastatin 2020-0 Yes 10mg QD Take [address] (MEVACOR) 8-15 by mouth [facility] 10 MG 17:30: nightly. Medical tablet [address] [place] [address] calcium 2020-0 Yes 3{tbl} Q.[id number] Take [address] carbonate 8-15 [id number] tablets by [facility] (TUMS) 500 17:30: 3D mouth 3 Medi benjy mg chewable 21 (three) Cente r tablet times daily. furosemide 2020-0 Yes 20mg QD Take [address] (LASIX) 20 8-15 by mouth [facility] MG tablet 17:30: daily. [address] lovastatin 2020-0 Yes 10mg QD Take [address] (MEVACOR) 8-15 by mouth [facility] 10 MG 17:30: nightly. Medical tablet [address] [place] [address] calcium 2020-0 Yes 3{tbl} Q.[id number] Take [address] carbonate 8-15 [id number] tablets by [facility] (TUMS) 500 17:30: 3D mouth 3 Medi benjy mg chewable 21 (three) Cente r tablet times daily. furosemide 2020-0 Yes 20mg QD Take [address] (LASIX) 20 8-15 by mouth [facility] MG tablet 17:30: daily. [address] lovastatin 2020-0 Yes 10mg QD Take [address] (MEVACOR) 8-15 by mouth [facility] 10 MG 17:30: nightly. Medical tablet 21 [place] calcium 2020-0 Yes 3{tbl} Q.[id number] Take [address] carbonate 8-15 [id number] tablets by [facility] (TUMS) 500 17:30: 3D mouth 3 Medi benjy mg chewable 21 (three) Cente r tablet times daily. furosemide 2020-0 Yes 20mg QD Take [address] (LASIX) 20 8-15 by mouth [facility] MG tablet 17:30: daily. Medica [address] lovastatin 2020-0 Yes 10mg QD Take [address] (MEVACOR) 8-15 by mouth [facility] 10 MG 17:30: nightly. Medical tablet 21 [place] calcium 2020-0 Yes 3{tbl} Q.[id number] Take [address] carbonate 8-15 [id number] tablets by [facility] (TUMS) 500 17:30: 3D mouth 3 Medi benjy mg chewable 21 (three) Cente r tablet times daily. furosemide 2020-0 Yes 20mg QD Take [address] (LASIX) 20 8-15 by mouth [facility] MG tablet 17:30: daily. [facility] [address] lovastatin 2020-0 Yes 10mg QD Take [address] (MEVACOR) 8-15 by mouth [facility] 10 MG 17:30: nightly. Medical tablet [address] [place] [address] calcium 2020-0 Yes 3{tbl} Q.[id number] Take [address] carbonate 8-15 [id number] tablets by [facility] (TUMS) 500 17:30: 3D mouth 3 Medi benjy mg chewable 21 (three) Cente r tablet times daily. furosemide 2020-0 Yes 20mg QD Take [address] (LASIX) 20 8-15 by mouth [facility] MG tablet 17:30: daily. [facility] [address] lovastatin 2020-0 Yes 10mg QD Take [address] (MEVACOR) 8-15 by mouth [facility] 10 MG 17:30: nightly. Medical tablet 21 [place] calcium 2020-0 Yes 3{tbl} Q.[id number] Take [address] carbonate 8-15 [id number] tablets by [facility] (TUMS) 500 17:30: 3D mouth 3 Medi benjy mg chewable 21 (three) Cente r tablet times daily. furosemide 2020-0 Yes 20mg QD Take [address] (LASIX) 20 8-15 by mouth [facility] MG tablet 17:30: daily. [address] lovastatin 2020-0 Yes 10mg QD Take [address] (MEVACOR) 8-15 by mouth [facility] 10 MG 17:30: nightly. Medical tablet 21 [place] calcium 2020-0 Yes 3{tbl} Q.[id number] Take [address] carbonate 8-15 [id number] tablets by [facility] (TUMS) 500 17:30: 3D mouth 3 Medi benjy mg chewable 21 (three) Cente r tablet times daily. furosemide 2020-0 Yes 20mg QD Take [address] (LASIX) 20 8-15 by mouth [facility] MG tablet 17:30: daily. [address] lovastatin 2020-0 Yes 10mg QD Take [address] (MEVACOR) 8-15 by mouth [facility] 10 MG 17:30: nightly. Medical tablet [address] [place] [address] calcium 2020-0 Yes 3{tbl} Q.[id number] Take [address] carbonate 8-15 [id number] tablets by [facility] (ZenCardS) 500 17:30: 3D mouth 3 Medi benjy mg chewable 21 (three) Cente r tablet times daily. furosemide 2020-0 Yes 20mg QD Take [address] (LASIX) 20 8-15 by mouth [facility] MG tablet 17:30: daily. [address] lovastatin 2020-0 Yes 10mg QD Take [address] (MEVACOR) 8-15 by mouth [facility] 10 MG 17:30: nightly. Medical tablet [address] [place] [address] calcium 2020-0 Yes 3{tbl} Q.[id number] Take [address] carbonate 8-15 [id number] tablets by [facility] (TUMS) 500 17:30: 3D mouth 3 Medi benjy mg chewable 21 (three) Cente r tablet times daily. furosemide 2020-0 Yes 20mg QD Take [address] (LASIX) 20 8-15 by mouth [facility] MG tablet 17:30: daily. [address] lovastatin 2020-0 Yes 10mg QD Take [address] (MEVACOR) 8-15 by mouth [facility] 10 MG 17:30: nightly. Medical tablet [address] [place] [address] calcium 2020-0 Yes 3{tbl} Q.[id number] Take [address] carbonate 8-15 [id number] tablets by [facility] (TUMS) 500 17:30: 3D mouth 3 Medi benjy mg chewable 21 (three) Cente r tablet times daily. furosemide 2020-0 Yes 20mg QD Take [address] (LASIX) 20 8-15 by mouth [facility] MG tablet 17:30: daily. Medica l [address] [place] [address] lovastatin 2020-0 Yes 10mg QD Take [address] (MEVACOR) 8-15 by mouth [facility] 10 MG 17:30: nightly. Medical tablet 21 [place] calcium 2020-0 Yes 3{tbl} Q.[id number] Take [address] carbonate 8-15 [id number] tablets by [facility] (TUMS) 500 17:30: 3D mouth 3 Medi benjy mg chewable 21 (three) Cente r tablet times daily. furosemide 2020-0 Yes 20mg QD Take [address] (LASIX) 20 8-15 by mouth [facility] MG tablet 17:30: daily. [facility] [address] lovastatin 2020-0 Yes 10mg QD Take [address] (MEVACOR) 8-15 by mouth [facility] 10 MG 17:30: nightly. Medical tablet [address] [place] [address] calcium 2020-0 Yes 3{tbl} Q.[id number] Take [address] carbonate 8-15 [id number] tablets by [facility] (TUMS) 500 17:30: 3D mouth 3 Medi benjy mg chewable 21 (three) Cente r tablet times daily. furosemide 2020-0 Yes 20mg QD Take [address] (LASIX) 20 8-15 by mouth [facility] MG tablet 17:30: daily. [facility] [address] lovastatin 2020-0 Yes 10mg QD Take [address] (MEVACOR) 8-15 by mouth [facility] 10 MG 17:30: nightly. Medical tablet 21 [place] calcium 2020-0 Yes 3{tbl} Q.[id number] Take [address] carbonate 8-15 [id number] tablets by [facility] (TUMS) 500 17:30: 3D mouth 3 Medi benjy mg chewable 21 (three) Cente r tablet times daily. furosemide 2020-0 Yes 20mg QD Take [address] (LASIX) 20 8-15 by mouth [facility] MG tablet 17:30: daily. [facility] [address] lovastatin 2020-0 Yes 10mg QD Take [address] (MEVACOR) 8-15 by mouth [facility] 10 MG 17:30: nightly. Medical tablet [address] [place] [address] calcium 2020-0 Yes 3{tbl} Q.[id number] Take [address] carbonate 8-15 [id number] tablets by [facility] (TUMS) 500 17:30: 3D mouth 3 Medi benjy mg chewable 21 (three) Cente r tablet times daily. furosemide 2020-0 Yes 20mg QD Take [address] (LASIX) 20 8-15 by mouth [facility] MG tablet 17:30: daily. [address] lovastatin 2020-0 Yes 10mg QD Take [address] (MEVACOR) 8-15 by mouth [facility] 10 MG 17:30: nightly. Medical tablet [address] [place] [address] calcium 2020-0 Yes 3{tbl} Q.[id number] Take [address] carbonate 8-15 [id number] tablets by [facility] (ZenCardS) 500 17:30: 3D mouth 3 Medi benjy mg chewable 21 (three) Cente r tablet times daily. furosemide 2020-0 Yes 20mg QD Take [address] (LASIX) 20 8-15 by mouth [facility] MG tablet 17:30: daily. [address] lovastatin 2020-0 Yes 10mg QD Take [address] (MEVACOR) 8-15 by mouth [facility] 10 MG 17:30: nightly. Medical tablet [address] [place] [address] calcium 2020-0 Yes 3{tbl} Q.[id number] Take [address] carbonate 8-15 [id number] tablets by [facility] (TUMS) 500 17:30: 3D mouth 3 Medi benjy mg chewable 21 (three) Cente r tablet times daily. furosemide 2020-0 Yes 20mg QD Take [address] (LASIX) 20 8-15 by mouth [facility] MG tablet 17:30: daily. [address] lovastatin 2020-0 Yes 10mg QD Take [address] (MEVACOR) 8-15 by mouth [facility] 10 MG 17:30: nightly. Medical tablet [address] [place] [address] calcium 2020-0 Yes 3{tbl} Q.[id number] Take [address] carbonate 8-15 [id number] tablets by [facility] (TUMS) 500 17:30: 3D [...] 00:00: mouth Medical tablet 00 daily. Center atorvastati 2020-0 Yes 1{tbl} QD Take [address] [facility] (LIPITOR) 5-15 tablet by Sheng es 10 MG 00:00: mouth Medical tablet 00 daily. [place] atorvastati 2019-0 Yes 1{tbl} QD Take [address] n (LIPITOR) 5-15 tablet by Sheng es 10 MG 00:00: mouth Medical tablet 00 daily. [place] atorvastati 2019-0 Yes 1{tbl} QD Take [address] [facility] (LIPITOR) 5-15 tablet by Sheng es 10 MG 00:00: mouth Medical tablet 00 daily. [place] atorvastati 2019-0 Yes 1{tbl} QD Take [address] n (LIPITOR) 5-15 tablet by Sheng es 10 MG 00:00: mouth Medical tablet 00 daily. [place] atorvastati 0 Yes 1{tbl} QD Take [address] n (LIPITOR) 5-15 tablet by Sheng es 10 MG 00:00: mouth Medical tablet 00 daily. [place] atorvastati 0 Yes 1{tbl} QD Take [address] n (LIPITOR) 5-15 tablet by Sheng es 10 MG 00:00: mouth Medical tablet 00 daily. [place] atorvastati 0 Yes 1{tbl} QD Take [address] n (LIPITOR) 5-15 tablet by Sheng es 10 MG 00:00: mouth Medical tablet 00 daily. [place] atorvastati 2019-0 Yes 1{tbl} QD Take [address] n (LIPITOR) 5-15 tablet by Sheng es 10 MG 00:00: mouth Medical tablet 00 daily. [place] atorvastati 2019-0 Yes 1{tbl} QD Take [address] n (LIPITOR) 5-15 tablet by Sheng es 10 MG 00:00: mouth Medical tablet 00 daily. [place] atorvastati 2019-0 Yes 1{tbl} QD Take [address] [facility] (LIPITOR) 5-15 tablet by Sheng es 10 MG 00:00: mouth Medical tablet 00 daily. [place] atorvastati 2019-0 Yes 1{tbl} QD Take [address] [facility] (LIPITOR) 5-15 tablet by Sheng es 10 MG 00:00: mouth Medical tablet 00 daily. [place] atorvastati 2019-0 Yes 1{tbl} QD Take [address] [facility] (LIPITOR) 5-15 tablet by Sheng es 10 MG 00:00: mouth Medical tablet 00 daily. [place] atorvastati 2019-0 Yes 1{tbl} QD Take [address] [facility] (LIPITOR) 5-15 tablet by Sheng es 10 MG 00:00: mouth Medical tablet 00 daily. [place] atorvastati 2019-0 Yes 1{tbl} QD Take [address] [facility] (LIPITOR) 5-15 tablet by Sheng es 10 MG 00:00: mouth Medical tablet 00 daily. [place] atorvastati 2019-0 Yes 1{tbl} QD Take [address] [facility] (LIPITOR) 5-15 tablet by Sheng es 10 MG 00:00: mouth Medical tablet 00 daily. [place] atorvastati Yes 1{tbl} QD Take [address] [facility] (LIPITOR) 5-15 tablet by Sheng es 10 MG 00:00: mouth Medical tablet 00 daily. [place] atorvastati 0 Yes 1{tbl} QD Take [address] [facility] (LIPITOR) 5-15 tablet by Sheng es 10 MG 00:00: mouth Medical tablet 00 daily. [place] atorvastati 0 Yes 1{tbl} QD Take [address] [facility] (LIPITOR) 5-15 tablet by Sheng es 10 MG 00:00: mouth Medical tablet 00 daily. [place] atorvastati 0 Yes 1{tbl} QD Take [address] [facility] (LIPITOR) 5-15 tablet by Sehng es 10 MG 00:00: mouth Medical tablet 00 daily. [place] atorvastati 2019-0 Yes 1{tbl} QD Take [address] [facility] (LIPITOR) 5-15 tablet by Sheng es 10 MG 00:00: mouth Medical tablet 00 daily. [place] atorvastati 2019-0 Yes 1{tbl} QD Take [address] [facility] (LIPITOR) 5-15 tablet by Sheng es 10 MG 00:00: mouth Medical tablet 00 daily. [place] atorvastati Yes 1{tbl} QD Take [address] [facility] (LIPITOR) 5-15 tablet by Sheng es 10 MG 00:00: mouth Medical tablet 00 daily. [place] aspirin 81 2019-0 No 1mg mg 3-04 tablet,girma 00:00: yed [...] 10 MG 00:00: daily . Medical tablet Center amLODIPine 2020-0 Yes 10mg QD Take [address] (NORVASC) 1-16 [facility] 10 MG 00:00: daily . Medical tablet 00 [place] amLODIPine 2020-0 Yes 10mg QD Take [address] (NORVASC) 1-16 by [facility] 10 MG 00:00: daily . Medical tablet 00 [place] amLODIPine 2020-0 Yes 10mg QD Take [address] (NORVASC) 1-16 by mouth [facility] 10 MG 00:00: daily . Medical tablet 00 [place] amLODIPine 2020-0 Yes 10mg QD Take [address] (NORVASC) 1-16 by mouth [facility] 10 MG 00:00: daily . Medical tablet 00 [place] amLODIPine 2020-0 Yes 10mg QD Take [address] (NORVASC) 1-16 by [facility] 10 MG 00:00: daily . Medical tablet 00 [place] amLODIPine 2020-0 Yes 10mg QD Take [address] (NORVASC) 1-16 by mouth [facility] 10 MG 00:00: daily . Medical tablet 00 [place] amLODIPine 2020-0 Yes 10mg QD Take [address] (NORVASC) 1-16 by [facility] 10 MG 00:00: daily . Medical tablet 00 [place] amLODIPine 2020-0 Yes 10mg QD Take [address] (NORVASC) 1-16 by [facility] 10 MG 00:00: daily . Medical tablet 00 [place] amLODIPine 2020-0 Yes 10mg QD Take [address] (NORVASC) 1-16 by [facility] daily . Medical tablet 00 [place] amLODIPine 2020-0 Yes 10mg QD Take [address] [facility] ([facility]VASC) 1-16 by [facility] 00:00: daily . Medical tablet 00 [place] amLODIPine 2020-0 Yes 10mg QD Take [address] (NORVASC) 1-16 by [facility] 00:00: daily . Medical tablet 00 [place] amLODIPine 2020-0 Yes 10mg QD Take [address] (NORVASC) 1-16 by [facility] 00:00: daily . Medical tablet 00 [place] amLODIPine 2020-0 Yes 10mg QD Take [address] (NORVASC) 1-16 by [facility] 00:00: daily . Medical tablet 00 [place] amLODIPine 2020-0 Yes 10mg QD Take [address] (NORVASC) 1-16 by [facility] 10 [facility] 00:00: daily . Medical tablet 00 [place] amLODIPine 2020-0 Yes 10mg QD Take [address] (NORVASC) 1-16 by [facility] 10 [facility] 00:00: daily . Medical tablet 00 [place] amLODIPine 2020-0 Yes 10mg QD Take [address] (NORVASC) 1-16 by [facility] 10 [facility] 00:00: daily . Medical tablet 00 [place] amLODIPine 2020-0 Yes 10mg QD Take [address] (NORVASC) 1-16 by [facility] 00:00: daily . Medical tablet [address] [place] [address] amLODIPine 2020-0 Yes 10mg QD Take [address] (NORVASC) 1-16 by [facility] 00:00: daily . Medical tablet [address] [place] [address] amLODIPine 2020-0 Yes 10mg QD Take [address] (NORVASC) 1-16 by [facility] 10 [facility] 00:00: daily . Medical tablet [address] [place] [address] amLODIPine 2020-0 Yes 10mg QD Take [address] (NORVASC) 1-16 by [facility] 10 MG 00:00: daily . Medical tablet [address] [place] [address] amLODIPine 2020-0 Yes 10mg QD Take [address] (NORVASC) 1-16 by [facility] 10 [facility] 00:00: daily . Medical tablet [address] [place] [address] amLODIPine 2020-0 Yes 10mg QD Take [address] (NORVASC) 1-16 [facility] 00:00: daily . Medical tablet 00 [place] aspirin 81 2020-0 No 1mg mg 1-10 [...] tablet 00:00: 00 sevelamer 2020-0 Yes 800mg Q.[id number] [address] [facility] ([facility]) 1-10 [id number] (three) [facility] 800 mg 00:00: 3D times Medical tablet 00 daily . [place] UNITHROID 2020-0 Yes 125ug QD Take [address] [facility] 125 mcg 1-10 mcg by [facility] 00:[facility]: mouth Medical 00 nightly . [place] sevelamer 2020-0 Yes 800mg Q.[id number] [address] [facility] ([place]) 1-10 [id number] (three) [facility] 800 mg 00:00: 3D times Medical tablet 00 daily . [place] UNITHROID 2020-0 Yes 125ug QD Take [address] [facility] [address] 125 mcg 1-10 mcg by [facility] 00:[facility]: mouth Medical 00 nightly . [place] sevelamer 2020-0 Yes 800mg Q.[id number] [address] [facility] ([place]) 1-10 [id number] (three) [facility] 800 mg 00:00: 3D times Medical tablet 00 daily . [place] UNITHROID 2020-0 Yes 125ug QD Take [address] [facility] [address] 125 mcg 1-10 mcg by [facility] 00:[facility]: mouth Medical 00 nightly . [place] sevelamer 2020-0 Yes 800mg Q.[id number] [address] [facility] ([place]) 1-10 [id number] (three) [facility] 800 mg 00:00: 3D times Medical tablet 00 daily . [place] UNITHROID 2020-0 Yes 125ug QD Take [address] [facility] [address] 125 mcg 1-10 mcg by [facility] 00:00: mouth Medical 00 nightly . [place] sevelamer 2020-0 Yes 800mg Q.[id number] [address] [facility] ([place]) 1-10 [id number] (three) [facility] 800 mg 00:00: 3D times Medical tablet 00 daily . [place] UNITHROID 2020-0 Yes 125ug QD Take [address] [facility] [address] 125 mcg 1-10 mcg by [facility] 00:00: mouth Medical 00 nightly . [place] sevelamer 2020-0 Yes 800mg Q.[id number] [address] [facility] ([place]) 1-10 [id number] (three) [facility] 800 mg 00:00: 3D times Medical tablet 00 daily . [place] UNITHROID 2020-0 Yes 125ug QD Take [address] [facility] [address] 125 mcg 1-10 mcg by [facility] 00:00: mouth Medical 00 nightly . [place] sevelamer 2020-0 Yes 800mg Q.[id number] [address] [facility] ([place]) 1-10 [id number] (three) [facility] 800 mg 00:00: 3D times Medical tablet 00 daily . [place] UNITHROID 2020-0 Yes 125ug QD Take [address] [facility] [address] 125 mcg 1-10 mcg by [facility] 00:00: mouth Medical 00 nightly . [place] sevelamer 2020-0 Yes 800mg Q.[id number] [address] [facility] ([place]) 1-10 [id number] (three) [facility] 800 mg 00:00: 3D times Medical tablet 00 daily . [place] UNITHROID 2020-0 Yes 125ug QD Take [address] [facility] [address] 125 mcg 1-10 mcg by [facility] 00:[facility]: mouth Medical 00 nightly . [place] sevelamer 2020-0 Yes 800mg Q.[id number] [address] [facility] ([place]) 1-10 [id number] (three) [facility] 800 mg 00:00: 3D times Medical tablet 00 daily . [place] UNITHROID 2020-0 Yes 125ug QD Take [address] [facility] [address] 125 mcg 1-10 mcg by [facility] 00:[facility]: mouth Medical 00 nightly . [place] sevelamer 2020-0 Yes 800mg Q.[id number] [address] [facility] ([place]) 1-10 [id number] (three) [facility] 800 mg 00:00: 3D times Medical tablet 00 daily . [place] UNITHROID 2020-0 Yes 125ug QD Take [address] [facility] [address] 125 mcg 1-10 mcg by [facility] 00:[facility]: mouth Medical 00 nightly . [place] sevelamer 2020-0 Yes 800mg Q.[id number] [address] [facility] ([place]) 1-10 [id number] (three) [facility] 800 mg 00:00: 3D times Medical tablet 00 daily . [place] UNITHROID 2020-0 Yes 125ug QD Take [address] [facility] [address] 125 mcg 1-10 mcg by [facility] 00:00: mouth Medical 00 nightly . [place] sevelamer 2020-0 Yes 800mg Q.[id number] [address] [facility] ([place]) 1-10 [id number] (three) [facility] 800 mg 00:00: 3D times Medical tablet 00 daily . [place] UNITHROID 2020-0 Yes 125ug QD Take [address] [facility] [address] 125 mcg 1-10 mcg by [facility] 00:00: mouth Medical 00 nightly . [place] sevelamer 2020-0 Yes 800mg Q.[id number] [address] [facility] ([place]) 1-10 [id number] (three) [facility] 800 mg 00:00: 3D times Medical tablet 00 daily . [place] UNITHROID 2020-0 Yes 125ug QD Take [address] [facility] [address] 125 mcg 1-10 mcg by [facility] 00:00: mouth Medical 00 nightly . [place] sevelamer 2020-0 Yes 800mg Q.[id number] [address] [facility] ([place]) 1-10 [id number] (three) [facility] 800 mg 00:00: 3D times Medical tablet 00 daily . [place] UNITHROID 2020-0 Yes 125ug QD Take [address] [facility] [address] 125 mcg 1-10 mcg by [facility] 00:00: mouth Medical 00 nightly . [place] sevelamer 2020-0 Yes 800mg Q.[id number] [address] [facility] ([place]) 1-10 [id number] (three) [facility] 800 mg 00:00: 3D times Medical tablet 00 daily . [place] UNITHROID 2020-0 Yes 125ug QD Take [address] [facility] [address] 125 mcg 1-10 mcg by [facility] 00:00: mouth Medical 00 nightly . [place] sevelamer 2020-0 Yes 800mg Q.[id number] [address] [facility] ([place]) 1-10 [id number] (three) [facility] 800 mg 00:00: 3D times Medical tablet 00 daily . [place] UNITHROID 2020-0 Yes 125ug QD Take [address] [facility] [address] 125 mcg 1-10 mcg by [facility] 00:00: mouth Medical 00 nightly . [place] sevelamer 2020-0 Yes 800mg Q.[id number] [address] [facility] ([place]) 1-10 [id number] (three) [facility] 800 mg 00:00: 3D times Medical tablet 00 daily . [place] UNITHROID 2020-0 Yes 125ug QD Take [address] [facility] [address] 125 mcg 1-10 mcg by [facility] 00:00: mouth Medical 00 nightly . [place] sevelamer 2020-0 Yes 800mg Q.[id number] [address] [facility] ([place]) 1-10 [id number] (three) [facility] 800 mg 00:00: 3D times Medical tablet 00 daily . [place] UNITHROID 2020-0 Yes 125ug QD Take [address] [facility] [address] 125 mcg 1-10 mcg by [facility] 00:00: mouth Medical 00 nightly . [place] sevelamer 2020-0 Yes 800mg Q.[id number] [address] [facility] ([place]) 1-10 [id number] (three) [facility] 800 mg 00:00: 3D times Medical tablet 00 daily . [place] UNITHROID 2020-0 Yes 125ug QD Take [address] [facility] [address] 125 mcg 1-10 mcg by [facility] 00:00: mouth Medical 00 nightly . [place] sevelamer 2020-0 Yes 800mg Q.[id number] [address] [facility] ([place]) 1-10 [id number] (three) [facility] 800 mg 00:00: 3D times Medical tablet 00 daily . [place] UNITHROID 2020-0 Yes 125ug QD Take [address] [facility] [address] 125 mcg 1-10 mcg by [facility] 00:00: mouth Medical 00 nightly . [place] sevelamer 2020-0 Yes 800mg Q.[id number] [address] [facility] ([place]) 1-10 [id number] (three) [facility] 800 mg 00:00: 3D times Medical tablet 00 daily . [place] UNITHROID 2020-0 Yes 125ug QD Take [address] [facility] [address] 125 mcg 1-10 mcg by [facility] 00:00: mouth Medical 00 nightly . [place] sevelamer 2020-0 Yes 800mg Q.[id number] [address] [facility] ([place]) 1-10 [id number] (three) [facility] 800 mg 00:00: 3D times Medical tablet 00 daily . [place] UNITHROID 2020-0 Yes 125ug QD Take [address] [facility] [address] 125 mcg 1-10 mcg by [facility] tablet 00:00: mouth Medical 00 nightly . [place] sevelamer 2020-0 Yes 800mg Q.[id number] [address] [facility] ([place]) 1-10 [id number] (three) [facility] 800 mg 00:00: 3D times Medical tablet 00 daily . [place] UNITHROID 2020-0 Yes 125ug QD Take [address] [facility] [address] 125 mcg 1-10 mcg by [facility] 00:00: mouth Medical 00 nightly . [place] amlodipine 2020-0 No 1mg 10 mg 1-08 [...] 125 mcg 2-04 tablet 00:00: 00 levothyroxi 2018-1 No 2mcg ne 125 mcg 2-04 tablet 00:00: 00 levothyroxi 2019-1 No 2mcg ne 125 mcg 2-04 tablet 00:00: 00 levothyroxi 2018-1 No 2mcg ne 125 mcg 2-04 tablet 00:00: 00 levothyroxi 2018-1 No 2mcg ne 125 mcg 2-04 tablet 00:00: 00 levothyroxi 2018-1 No 2mcg ne 125 mcg 2-04 tablet [...] calcium 00 (1,250 mg) chewable tablet atorvastati 2018-05 No 1mg n 10 mg [...] 1-12 capsule 00:00: 00 gabapentin 2018-05 Yes [id number] 100mg Take 1 [facility] 100 mg 0-22 capsule by [facility] capsule 00:00: mouth 3 [place] 00 (three) Medical times Branch daily. gabapentin 2018-05 Yes [id number] 100mg Take 1 [facility] 100 mg 0-22 capsule by [facility] of capsule 00:00: mouth 3 (three) Medical times Branch daily. gabapentin 2018-05 Yes [id number] 100mg Take 1 [facility] 100 mg 0-22 [...] amlodipine 2018-05 No 1mg 5 mg tablet 001 00:00: 00 aspirin 81 2018-05 No 1mg [...] amlodipine 2018- No 1mg 5 mg tablet 001 00:00: 00 aspirin 81 2018-05 No 1mg [...] mcg 0-01 tablet 00:00: 00 amLODIPine Yes [id number] 10mg Take 1 [facility] n[facility] 10 mg 9-16 tablet by [facility] of tablet 00:00: mouth [place] 00 daily. Medical Branch aspirin 81 Yes [id number] 81mg Take 1 [facility] mg chewable 9-16 tablet by [facility]y of tablet 00:00: mouth [place] 00 daily. Medical Branch atorvastati Yes [id number] 40mg Take 2 [facility] n 20 mg 9-16 tablets by [facility]y of tablet 00:00: mouth at [place] 00 bedtime. Medical Branch calcium Yes [id number] 1000mg Take 2 U nivers carbonate 9-16 tablets by ity of (CALCIUM 00:00: mouth 3 [place] 500) 500 mg 00 (three) Medic al calcium times Branch (1,250 mg) daily with tablet meals. meclizine Yes [id number] 25mg Take 2 U nivers 12.5 mg 9-16 tablets by ity of tablet 00:00: mouth 3 [place] 00 (three) Medical times Branch daily as needed for Dizziness. Para mareo (for dizziness) sevelamer Yes [id number] 800mg Take 1 [facility] 800 mg 9-16 tablet by [facility]y of tablet 00:00: mouth 3 [place] 00 (three) Medical times Branch daily with meals. amLODIPine Yes [id number] 10mg Take 1 [facility] nivers 10 mg 9-16 tablet by ity of tablet 00:00: mouth [place] 00 daily. Medical Branch aspirin 81 Yes [id number] 81mg Take 1 [facility] mg chewable 9-16 tablet by ity of tablet 00:00: mouth [place] 00 daily. Medical Branch atorvastati 2019-0 Yes [id number] 40mg Take 2 [facility] n 20 mg 9-16 tablets by ity of tablet 00:00: mouth at [place] 00 bedtime. Medical Branch calcium 2018-0 Yes [id number] 1000mg Take 2 U nivers carbonate 9-16 tablets by ity of (CALCIUM 00:00: mouth 3 [place] 500) 500 mg 00 (three) Medic al calcium times Branch (1,250 mg) daily with tablet meals. meclizine 2018-0 Yes [id number] 25mg Take 2 U nivers 12.5 mg 9-16 tablets by ity of tablet 00:00: mouth 3 [place] 00 (three) Medical times Branch daily as needed for Dizziness. [place] mare[place] (for dizziness) sevelamer 2018-0 Yes [id number] 800mg Take 1 [facility] 800 mg 9-16 tablet by [facility]y of tablet 00:00: mouth 3 [place] 00 (three) Medical times Branch daily with meals. amLODIPine 2018-0 Yes [id number] 10mg Take 1 [facility] nivers 10 mg 9-16 tablet by [facility]y of tablet 00:00: mouth [place] 00 daily. Medical Branch aspirin 81 2018-0 Yes [id number] 81mg Take 1 [facility] mg chewable 9-16 tablet by [facility]y of tablet 00:00: mouth [place] 00 daily. Medical Branch atorvastati 2018-0 Yes [id number] 40mg Take 2 [facility] n 20 mg 9-16 tablets by ity of tablet 00:00: mouth at [place] 00 bedtime. Medical Branch calcium 2018-0 Yes [id number] 1000mg Take 2 U nivers carbonate 9-16 tablets by ity of (CALCIUM 00:00: mouth 3 [place] 500) 500 mg 00 (three) Medic al calcium times Branch (1,250 mg) daily with tablet meals. meclizine 2018-0 Yes [id number] 25mg Take 2 U nivers 12.5 mg 9-16 tablets by ity of tablet 00:00: mouth 3 00 (three) Medical times Branch daily as needed for Dizziness. [place] mare[place] (for dizziness) sevelamer 2018-0 Yes [id number] 800mg Take 1 [facility] 800 mg 9-16 tablet by [facility]y of tablet 00:00: mouth 3 [place] 00 (three) Medical times Branch daily with meals. amLODIPine 2018-0 Yes 10mg QD Take 10 mg M [...] Comments Sourc e Immunization Name Name Roger CLEMENSID-19 2021-12-02 Completed Vaccine 00:00:00 Moderna COVID-19 2021-12-02 [...] 00:00:00 Moderna COVID-19 2020-08-01 Completed Vaccine 00:00:00 Roger COVID-19 2020-07-06 Completed Vaccine 00:00:00 Moderna COVID-19 2020-07-06 Completed Vaccine 00:00:00 Moderna COVID-19 2020-07-06 Completed Vaccine 00:00:00 Moderna COVID-19 2020-07-06 Completed Vaccine 00:00:00 Padminia COVID-19 2020-07-06 Completed Vaccine 00:00:00 Padminia COVID-19 2020-07-06 Completed Vaccine 00:00:00 Moderna COVID-19 2020-07-06 Completed Vaccine 00:00:00 Moderna COVID-19 2020-07-06 Completed Vaccine 00:00:00 Pneumococcal 2018-03-07 Completed [facility] o f Polysaccharide, 00:00:00 [place] [facility] PPSV23 (PNEUMOVAX) Branch Pneumococcal 2018-03-07 Completed University o f Polysaccharide, 00:00:00 [place] [facility] ical PPSV23 (PNEUMOVAX) Branch Pneumococcal 2018-03-07 Completed University o f Polysaccharide, 00:00:00 [place] [facility] ical PPSV23 (PNEUMOVAX) [place] Vital Signs Vital Name Observation Time Observation Value Comments Source HEIGHT 2019-11-07 00:00:00 162.6 cm WEIGHT 2019-11-07 00:00:00 76.4 kg Systolic blood 2021-12-02 19:06:00 116 mm[Hg] Univer sity of pressure [facility] Diastolic blood 2021-12-02 19:06:00 68 mm[Hg] Unive rsity of pressure [facility] Heart rate 2021-12-02 19:06:00 69 /min [facility] Body height 2021-12-02 19:06:00 162.6 cm [facility] Body weight 2021-12-02 19:06:00 78.019 kg [facility] BMI 2021-12-02 19:06:00 29.52 kg/m2 [facility] Oxygen saturation in 2021-12-02 19:06:00 95 /min [facility] Arterial blood by [facility] Pulse oximetry Branch HEIGHT 2019-11-07 00:00:00 [...] Source Performed REFERRAL- 2022-05-28 06:01:00 Doctor Unassigned, Angela stubbs [facility] REQUEST/RESPONSE Name Medical Branch [id number] 2022-04-17 00:00:00 [facility] [id number] 2022-04-08 00:00:00 [facility] Plan of Care Planned Activity Planned Date [...] Ended)] Future Scheduled 2022-08-02 COVID-19 VACCINE (#1) [facility] 10:59:50 [code = COVID-19 VACCINE (#1)] Future Scheduled 2022-08-[address] [facility]:59:50 [code = COLONOSCOPY SCREENING] Future Scheduled 2022-08-02 SHINGLES VACCINES (1 [facility] 10:59:50 of 2) [code = SHINGLES VACCINES (1 of 2)] Future Scheduled 2022-08-02 INFLUENZA VACCINE [facility] Test 10:59:50 [code = INFLUENZA VACCINE] Future Scheduled 2022-08-02 COVID-19 VACCINE (#1) [facility] 10:59:50 [code = COVID-19 VACCINE (#1)] Future Scheduled 2022-08-02 [facility]ENING [facility] 10:59:50 [code = COLONOSCOPY SCREENING] Future Scheduled 2022-08-02 SHINGLES VACCINES (1 [facility] Test 10:59:50 of 2) [code = SHINGLES VACCINES (1 of 2)] Future Scheduled 2022-08-02 INFLUENZA VACCINE [facility] Test 10:59:50 [code = INFLUENZA VACCINE] Future Scheduled 2022-08-02 COVID-19 VACCINE (#1) Me [...] VACCINE] Future Scheduled 2022-08-02 COVID-19 VACCINE (#1) Me [...] VACCINE] Future Scheduled 2022-08-02 COVID-19 VACCINE (#1) Me [...] Test 00:00:00 (procedure) [code = [facility] Center [id number]] Future Scheduled 2022-07-[address] [facility] Test 00:[facility]:00 (procedure) [code = [facility] [id number]] Future Scheduled 2022-07-[address] [facility] Test 00:00:00 (procedure) [code = [facility] Center [id number]] Future Scheduled 2022-07-[address] [facility] Test 00:00:00 (procedure) [code = [facility] [id number]] Future Scheduled 2022-07-[address] [facility] Test 00:00:00 (procedure) [code = [facility] [id number]] Future Scheduled 2022-07-[address] [facility] Test 00:00:00 (procedure) [code = [facility] [id number]] Future Scheduled 2022-07-[address] [facility] Test 00:00:00 (procedure) [code = [facility] Center [id number]] Future Scheduled 2022-07-[address] [facility] Test 00:00:00 (procedure) [code = [facility] [id number]] Future Scheduled 2022-07-[address] [facility] Test 00:00:00 (procedure) [code = [facility] Center [id number]] Future Scheduled 2022-07-[address] [facility] Test 00:00:00 (procedure) [code = [facility] [id number]] Future Scheduled 2022-07-[address] [facility] Test 00:00:00 (procedure) [code = [facility] [id number]] Future Scheduled 2022-07-[address] [facility] Test 00:00:00 (procedure) [code = [facility] [id number]] Future Scheduled 2022-07-[address] [facility] Test 00:00:00 (procedure) [code = [facility] [id number]] Future Scheduled 2022-07-[address] [facility] Test 00:00:00 (procedure) [code = [facility] Center [id number]] Future Scheduled 2022-07-[address] [facility] Test 00:00:00 (procedure) [code = [facility] [id number]] Future Scheduled 2022-07-[address] [facility] Test 00:00:00 (procedure) [code = [facility] Center [id number]] Future Scheduled 2022-07-[address] [facility] Test 00:00:00 (procedure) [code = [facility] [id number]] Future Scheduled 2022-07-[address] [facility] Test 00:00:00 (procedure) [code = [facility] Center [id number]] Future Scheduled 2022-07-[address] [facility] Test 00:00:00 (procedure) [code = [facility] Center [id number]] Future Scheduled 2022-07-[address] [facility] Test 00:00:00 (procedure) [code = [facility] [id number]] Future Scheduled 2022-07-[address] [facility] Test 00:00:00 (procedure) [code = [facility] [id number]] Future Scheduled 2022-07-[address] [facility] Test 00:00:00 (procedure) [code = [facility] [id number]] Future Scheduled 2022-07-[address] [facility] Test 00:00:00 (procedure) [code = [facility] Center [id number]] Future Scheduled 2022-06-15 COVID-19 VACCINE (#1) [facility] Test 10:12:43 [code = COVID-19 VACCINE (#1)] Future Scheduled 2022-06-15 COLONOSCOPY SCREENING [facility] Test 10:12:43 [code = COLONOSCOPY SCREENING] Future Scheduled 2022-06-15 SHINGLES VACCINES (1 Met [facility] Test 10:12:43 of 2) [code = SHINGLES VACCINES (1 of 2)] Future Scheduled 2022-06-15 INFLUENZA VACCINE Method [facility] Test 10:12:43 [code = INFLUENZA VACCINE] Future Scheduled 2022-06-15 COVID-19 VACCINE (#1) Me [facility] Test 10:12:43 [code = COVID-19 VACCINE (#1)] Future Scheduled 2022-06-15 COLONOSCOPY SCREENING [facility] Test 10:12:43 [code = COLONOSCOPY SCREENING] Future Scheduled 2022-06-15 SHINGLES VACCINES (1 [facility] Test 10:12:43 of 2) [code = SHINGLES VACCINES (1 of 2)] Future Scheduled 2022-06-15 INFLUENZA VACCINE [facility] Test 10:12:43 [code = INFLUENZA VACCINE] Future Scheduled 2022-06-15 [facility] 10:12:43 [code = COVID-19 VACCINE (#1)] Future Scheduled 2022-06-[address] [facility] [facility] 10:12:43 [code = COLONOSCOPY SCREENING] Future Scheduled 2022-06-15 SHINGLES VACCINES (1 [facility] 10:12:43 of 2) [code = SHINGLES VACCINES (1 of 2)] Future Scheduled 2022-06-15 INFLUENZA VACCINE [facility] Test 10:12:43 [code = INFLUENZA VACCINE] Future Scheduled 2022-05-28 COVID[facility]19 [facility]INE [facility] 09:36:27 [code = COVID-19 VACCINE (#1)] Future Scheduled 2022-05-[address] [facility] [facility] 09:36:27 [code = COLONOSCOPY SCREENING] Future Scheduled 2022-05-28 SHINGLES VACCINES (1 [facility] 09:36:27 of 2) [code = SHINGLES VACCINES (1 of 2)] Future Scheduled 2022-05-28 INFLUENZA VACCINE [facility] Test 09:36:27 [code = INFLUENZA VACCINE] Future Scheduled 2022-05-28 COVID[facility]19 [facility]ACCINE (#1[facility] 09:36:27 [code = COVID-19 VACCINE (#1)] Future Scheduled 2022-05-[address] [facility] [facility] 09:36:27 [code = COLONOSCOPY SCREENING] Future Scheduled 2022-05-28 SHINGLES VACCINES (1 [facility] 09:36:27 of 2) [code = SHINGLES VACCINES (1 of 2)] Future Scheduled 2022-05-28 INFLUENZA VACCINE [facility] Test 09:36:27 [code = INFLUENZA VACCINE] Future Scheduled 2022-05-11 COVID[facility]19 [facility]INE (#1[facility] 00:38:04 [code = COVID-19 VACCINE (#1)] Future Scheduled 2022-05-[address] [facility] [facility] 00:38:04 [code = COLONOSCOPY SCREENING] Future Scheduled 2022-05-11 SHINGLES VACCINES (1 [facility] Test 00:38:04 of 2) [code = SHINGLES VACCINES (1 of 2)] Future Scheduled 2022-05-11 INFLUENZA VACCINE [facility] Test 00:38:04 [code = INFLUENZA VACCINE] Future Scheduled 2022-05-11 COVID-19 VACCINE (#1) [facility] Test 00:38:04 [code = COVID-19 VACCINE (#1)] Future Scheduled 2022-05-11 COLONOSCOPY SCREENING [facility] Test 00:38:04 [code = COLONOSCOPY SCREENING] Future Scheduled 2022-05-11 SHINGLES VACCINES (1 [facility] Test 00:38:04 of 2) [code = SHINGLES VACCINES (1 of 2)] Future Scheduled 2022-05-11 INFLUENZA VACCINE [facility] Test 00:38:04 [code = INFLUENZA VACCINE] [...] (12+)] Future Scheduled 2022-04-23 COVID-19 VACCINE (#1) [facility] Test 11:12:56 [code = COVID-19 VACCINE (#1)] Future Scheduled 2022-04-23 COLONOSCOPY SCREENING [facility] Test 11:12:56 [code = COLONOSCOPY SCREENING] Future Scheduled 2022-04-23 SHINGLES VACCINES (1 [facility] Test 11:12:56 of 2) [code = SHINGLES VACCINES (1 of 2)] Future Scheduled 2022-04-23 INFLUENZA VACCINE [facility] Test 11:12:56 [code = INFLUENZA VACCINE] Future Scheduled 2022-04-20 COVID-19 VACCINE (#1) [facility] Test 13:44:31 [code = COVID-19 VACCINE (#1)] Future Scheduled 2022-04-20 COLONOSCOPY SCREENING [facility] Test 13:44:31 [code = COLONOSCOPY SCREENING] Future Scheduled 2022-04-20 SHINGLES VACCINES (1 [facility] Test 13:44:31 of 2) [code = SHINGLES VACCINES (1 of 2)] Future Scheduled 2022-04-20 INFLUENZA VACCINE [facility] Test 13:44:31 [code = INFLUENZA VACCINE] Future Scheduled 2022-04-20 COVID-19 VACCINE (#1) [facility] Test 13:44:31 [code = COVID-19 VACCINE (#1)] Future Scheduled 2022-04-20 COLONOSCOPY SCREENING [facility] Test 13:44:31 [code = COLONOSCOPY SCREENING] Future Scheduled 2022-04-20 SHINGLES VACCINES (1 [facility] Test 13:44:31 of 2) [code = SHINGLES VACCINES (1 of 2)] Future Scheduled 2022-04-20 INFLUENZA VACCINE [facility] Test 13:44:31 [code = INFLUENZA VACCINE] Future Scheduled 2022-04-20 COVID-19 VACCINE (#1) [facility] Test 13:44:31 [code = COVID-19 VACCINE (#1)] Future Scheduled 2022-04-20 COLONOSCOPY SCREENING [facility] Test 13:44:31 [code = COLONOSCOPY SCREENING] Future Scheduled 2022-04-20 SHINGLES VACCINES (1 [facility] Test 13:44:31 of 2) [code = SHINGLES VACCINES (1 of 2)] Future Scheduled 2022-04-20 INFLUENZA VACCINE Method [facility] Test 13:44:31 [code = INFLUENZA VACCINE] Future Scheduled 2022-04-20 COVID-19 VACCINE (#1) [facility] Test 13:44:31 [code = COVID-19 VACCINE (#1)] Future Scheduled 2022-04-20 COLONOSCOPY SCREENING [facility] Test 13:44:31 [code = COLONOSCOPY SCREENING] Future Scheduled 2022-04-20 SHINGLES VACCINES (1 Met [facility] Test 13:44:31 of 2) [code = SHINGLES VACCINES (1 of 2)] Future Scheduled 2022-04-20 INFLUENZA VACCINE Method [facility] Test 13:44:31 [code = INFLUENZA VACCINE] Future Scheduled 2022-03-04 HEPATITIS B VACCINES Met [facility] Test 13:56:11 (1 of 3 - 3-dose series) [code = HEPATITIS B VACCINES (1 of 3 - 3-dose series)] Future Scheduled 2022-03-04 COVID-19 VACCINE (#1) [facility] Test 13:56:11 [code = COVID-19 VACCINE (#1)] Future Scheduled 2022-03-04 COLONOSCOPY SCREENING [facility] Test 13:56:11 [code = COLONOSCOPY SCREENING] Future Scheduled 2022-03-04 SHINGLES VACCINES (1 Met [facility] Test 13:56:11 of 2) [code = SHINGLES VACCINES (1 of 2)] Future Scheduled 2022-03-04 INFLUENZA VACCINE Method [facility] Test 13:56:11 [code = INFLUENZA VACCINE] Future Scheduled 2022-03-04 HEPATITIS B VACCINES Met [facility] Test 13:56:11 (1 of 3 - 3-dose series) [code = HEPATITIS B VACCINES (1 of 3 - 3-dose series)] Future Scheduled 2022-03-04 COVID-19 VACCINE (#1) [facility] Test 13:56:11 [code = COVID-19 VACCINE (#1)] Future Scheduled 2022-03-04 COLONOSCOPY SCREENING [facility] Test 13:56:11 [code = COLONOSCOPY SCREENING] Future Scheduled 2022-03-04 SHINGLES VACCINES (1 Met [facility] Test 13:56:11 of 2) [code = SHINGLES VACCINES (1 of 2)] Future Scheduled 2022-03-04 INFLUENZA VACCINE Method [facility] Test 13:56:11 [code = INFLUENZA VACCINE] Future Scheduled 2022-03-04 HEPATITIS B VACCINES Met [facility] Test 13:56:11 (1 of 3 - 3-dose series) [code = HEPATITIS B VACCINES (1 of 3 - 3-dose series)] Future Scheduled 2022-03-04 COVID-19 VACCINE (#1) [facility] Test 13:56:11 [code = COVID-19 VACCINE (#1)] Future Scheduled 2022-03-04 COLONOSCOPY SCREENING [facility] Test 13:56:11 [code = COLONOSCOPY SCREENING] Future Scheduled 2022-03-04 SHINGLES VACCINES (1 Met [facility] Test 13:56:11 of 2) [code = SHINGLES VACCINES (1 of 2)] Future Scheduled 2022-03-04 INFLUENZA VACCINE Method [facility] Test 13:56:11 [code = INFLUENZA VACCINE] Future Scheduled 2022-02-08 HEPATITIS B VACCINES Met [facility] Test 14:31:50 (1 of 3 - 3-dose series) [code = HEPATITIS B VACCINES (1 of 3 - 3-dose series)] Future Scheduled 2022-02-08 COVID-19 VACCINE (#1) [facility] Test 14:31:50 [code = COVID-19 VACCINE (#1)] Future Scheduled 2022-02-08 COLONOSCOPY SCREENING [facility] Test 14:31:50 [code = COLONOSCOPY SCREENING] Future Scheduled 2022-02-08 SHINGLES VACCINES (1 Met [facility] Test 14:31:50 of 2) [code = SHINGLES VACCINES (1 of 2)] Future Scheduled 2022-02-08 INFLUENZA VACCINE Method [facility] Test 14:31:50 [code = INFLUENZA VACCINE] Future Scheduled 2022-01-03 HEPATITIS B VACCINES Met [facility] Test 04:21:26 (1 of 3 - 3-dose series) [code = HEPATITIS B VACCINES (1 of 3 - 3-dose series)] Future Scheduled 2022-01-03 COVID-19 VACCINE (#1) [facility] Test 04:21:26 [code = COVID-19 VACCINE (#1)] Future Scheduled 2022-01-03 Pneumococcal Vaccine: [facility] Test 04:21:26 Pediatrics (0 to 5 Years) and At-Risk Patients (6 to 64 Years) (1 - PCV) [code = Pneumococcal Vaccine: Pediatrics (0 to 5 Years) and At-Risk Patients (6 to 64 Years) (1 - PCV)] Future Scheduled 2022-01-03 Hepatitis C screening [facility] Test 04:21:26 (procedure) [code = [id number]] Future Scheduled 2022-01-03 SHINGLES VACCINES (1 Met [facility] Test 04:21:26 of 2) [code = SHINGLES VACCINES (1 of 2)] Future Scheduled 2022-01-03 COLONOSCOPY SCREENING [facility] Test 04:21:26 [code = COLONOSCOPY SCREENING] Future Scheduled 2022-01-03 INFLUENZA VACCINE Method [facility] Test 04:21:26 [code = [...] Future Scheduled 2021-12-27 HEPATITIS B VACCINES Met [facility] Test 10:00:17 (1 of 3 - 3-dose series) [code = HEPATITIS B VACCINES (1 of 3 - 3-dose series)] Future Scheduled 2021-12-27 COVID-19 VACCINE (#1) [facility] Test 10:00:17 [code = COVID-19 VACCINE (#1)] Future Scheduled 2021-12-27 Pneumococcal Vaccine: [facility] Test 10:00:17 Pediatrics (0 to 5 Years) and At-Risk Patients (6 to 64 Years) (1 - PCV) [code = Pneumococcal Vaccine: Pediatrics (0 to 5 Years) and At-Risk Patients (6 to 64 Years) (1 - PCV)] Future Scheduled 2021-12-27 Hepatitis C screening [facility] Test 10:00:17 (procedure) [code = [id number]] Future Scheduled 2021-12-27 SHINGLES VACCINES (1 Met [facility] Test 10:00:17 of 2) [code = SHINGLES VACCINES (1 of 2)] Future Scheduled 2021-12-27 COLONOSCOPY SCREENING [facility] Test 10:00:17 [code = COLONOSCOPY SCREENING] Future Scheduled 2021-12-27 INFLUENZA VACCINE Method [facility] Test 10:00:17 [code = INFLUENZA VACCINE] [...] 00:00:00 measurement [facility] Center (procedure) [code = [id number]] Future Scheduled 2020-01-[address] [facility] 00:[facility]00 measurement [facility] (procedure) [code = [id number]] Future Scheduled 2020-01-[address] [facility] 00:00:00 measurement [facility] (procedure) [code = 70071207] Future Scheduled 2020-01-[address] [facility] 00:00:00 measurement [facility] (procedure) [code = 56854139] Future Scheduled 2020-01-[address] [facility] 00:00:00 measurement [facility] (procedure) [code = 79168787] Future Scheduled 2020-01-[address] [facility] 00:00:00 measurement [facility] (procedure) [code = 51124359] Future Scheduled 2020-01-[address] [facility] 00:00:00 measurement [facility] (procedure) [code = 21836156] Future Scheduled 2020-01-[address] [facility] 00:00:00 measurement [facility] (procedure) [code = 89696893] Future Scheduled 2020-01-[address] [facility] 00:00:00 measurement [facility] (procedure) [code = 92602012] Future Scheduled 2020-01-[address] [facility] 00:00:00 measurement [facility] (procedure) [code = 01052251] Future Scheduled 2020-01-[address] [facility] 00:00:00 measurement [facility] (procedure) [code = 70338780] Future Scheduled 2020-01-[address] [facility] 00:00:00 measurement [facility] (procedure) [code = 31955945] Future Scheduled 2020-01-[address] [facility] 00:00:00 measurement [facility] (procedure) [code = 23111326] Future Scheduled 2020-01-[address] [facility] 00:00:00 measurement [facility] (procedure) [code = 48612789] Future Scheduled 2020-01-[address] [facility] 00:00:00 measurement [facility] (procedure) [code = 44549970] Future Scheduled 2020-01-[address] [facility] 00:00:00 measurement [facility] (procedure) [code = 82134914] Future Scheduled 2020-01-[address] [facility] 00:00:00 measurement [facility] (procedure) [code = 63013171] Future Scheduled 2020-01-[address] [facility] 00:00:00 measurement [facility] (procedure) [code = 47292256] Future Scheduled 2020-01-[address] [facility] 00:00:00 measurement [facility] (procedure) [code = 86343829] Future Scheduled 2020-01-[address] [facility] 00:00:00 measurement [facility] (procedure) [code = 33987921] Future Scheduled 2020-01-[address] [facility] 00:00:00 measurement [facility] (procedure) [code = 11270274] Future Scheduled 2020-01-[address] [facility] 00:00:00 measurement [facility] (procedure) [code = 64761554] Future Scheduled 2020-01-[address] [facility] 00:00:00 measurement [facility] (procedure) [code = 56713021] Future Scheduled 2019-11-[address] [...] 00:00:00 examination Medical Center (regime/therapy) [code = 274744244] Future Scheduled 1975 Urine screening for [facility] Test 00:00:00 protein (procedure) Medical Center [code = 535602733] Future Scheduled 1975 DIABETIC EYE EXAM [facility] Test 00:00:00 [code = DIABETIC EYE Medical Center EXAM] Future Scheduled [address] [facility] 00:[facility]:00 examination Medical Center (regime/therapy) [code = 961412523] Future Scheduled 1975 Urine screening for [facility] Test 00:00:00 protein (procedure) Medical Center [code = 001144630] Future Scheduled [address] DIABETIC EYE EXAM [facility] Test 00:00:00 [code = DIABETIC EYE Medical Center EXAM] Future Scheduled [address] [facility] 00:00:00 examination Medical Center (regime/therapy) [code = 642858073] Future Scheduled 1975 Urine screening for [facility] Test 00:00:00 protein (procedure) Medical Center [code = 747719144] Future Scheduled [address] DIABETIC EYE EXAM [facility] Test 00:00:00 [code = DIABETIC EYE Medical Center EXAM] Future Scheduled [address] [facility] 00:00:00 examination Medical Center (regime/therapy) [code = 503400510] Future Scheduled 1975 Urine screening for [facility] Test 00:00:00 protein (procedure) Medical Center [code = 506154092] Future Scheduled [address] DIABETIC EYE EXAM [facility] Test 00:00:00 [code = DIABETIC EYE Medical Center EXAM] Future Scheduled [address] [facility] 00:00:00 examination Medical Center (regime/therapy) [code = 257040568] Future Scheduled 1975 Urine screening for [facility] Test 00:00:00 protein (procedure) Medical Center [code = 909975811] Future Scheduled [address] DIABETIC EYE EXAM [facility] Test 00:00:00 [code = DIABETIC EYE Medical Center EXAM] Future Scheduled [address] [facility] 00:00:00 examination Medical Center (regime/therapy) [code = 981157157] Future Scheduled 1975 Urine screening for [facility] Test 00:00:00 protein (procedure) Medical Center [code = 152661260] Future Scheduled [address] DIABETIC EYE EXAM [facility] 00:00:00 [code = DIABETIC EYE Medical Center EXAM] Future Scheduled [address] [facility] 00:00:00 examination Medical Center (regime/therapy) [code = 393812756] Future Scheduled 1975 Urine screening for [facility] Test 00:00:00 protein (procedure) Medical Center [code = 570181660] Future Scheduled [address] DIAB[address] EYE EXAM [facility] 00:00:00 [code = DIABETIC EYE Medical Center EXAM] Future Scheduled [address] [facility] 00:00:00 examination Medical Center (regime/therapy) [code = 296557791] Future Scheduled 1975 Urine screening for [facility] 00:00:00 protein (procedure) Medical Center [code = 275957935] Future Scheduled [address] DIAB[address] EYE EXAM [facility] 00:00:00 [code = DIABETIC EYE Medical Center EXAM] Future Scheduled [address] [facility] 00:00:00 examination Medical Center (regime/therapy) [code = 033245218] Future Scheduled 1975 Urine screening for [facility] 00:00:00 protein (procedure) Medical Center [code = 747523469] Future Scheduled [address] DIAB[address] EYE EXAM [facility] 00:00:00 [code = DIABETIC EYE Medical Center EXAM] Future Scheduled [address] [facility] 00:00:00 examination Medical Center (regime/therapy) [code = 132135521] Future Scheduled 1975 Urine screening for [facility] 00:00:00 protein (procedure) Medical Center [code = 328031892] Future Scheduled [address] DIABET[address] EYE EXAM [facility] 00:00:00 [code = DIABETIC EYE Medical Center EXAM] Future Scheduled [address]AB[address] EYE EXAM [facility] 00:00:00 [code = DIABETIC EYE Medical Center EXAM] Future Scheduled [address] [facility] 00:00:00 examination Medical Center (regime/therapy) [code = 721987889] Future Scheduled 1975 Urine screening for [facility] 00:00:00 protein (procedure) Medical Center [code = 839860332] Future Scheduled [address] [facility] 00:00:00 examination Medical Center (regime/therapy) [code = 145080632] Future Scheduled 1975 Urine screening for [facility] 00:00:00 protein (procedure) Medical Center [code = 026697186] Future Scheduled [address] DIABET[address] EYE EXAM [facility] 00:00:00 [code = DIABETIC EYE Medical Center EXAM] Future Scheduled [address] [facility] 00:00:00 examination Medical Center (regime/therapy) [code = 177037436] Future Scheduled 1975 Urine screening for [facility] 00:00:00 protein (procedure) Medical Center [code = 830320937] Future Scheduled [address] DIAB[address] EYE EXAM [facility] 00:00:00 [code = DIABETIC EYE Medical Center EXAM] Future Scheduled [address] [facility] 00:00:00 examination Medical Center (regime/therapy) [code = 556776343] Future Scheduled 1975 Urine screening for [facility] 00:00:00 protein (procedure) Medical Center [code = 630902780] Future Scheduled [address] DIAB[address] EYE EXAM [facility] 00:00:00 [code = DIABETIC EYE Medical Center EXAM] Future Scheduled [address] [facility] 00:00:00 examination Medical Center (regime/therapy) [code = 190284747] Future Scheduled 1975 Urine screening for [facility] 00:00:00 protein (procedure) Medical Center [code = 038826864] Future Scheduled [address] DIAB[address] EYE EXAM [facility] 00:00:00 [code = DIABETIC EYE Medical Center EXAM] Future Scheduled [address] [facility] 00:00:00 examination Medical Center (regime/therapy) [code = 917633024] Future Scheduled 1975 Urine screening for [facility] Test 00:00:00 protein (procedure) Medical Center [code = 403006415] Future Scheduled [address] DIAB[address] EYE EXAM [facility] 00:00:00 [code = DIABETIC EYE Medical Center EXAM] Future Scheduled [address] [facility] 00:00:00 examination Medical Center (regime/therapy) [code = 995481648] Future Scheduled 1975 Urine screening for [facility] Test 00:00:00 protein (procedure) Medical Center [code = 555172779] Future Scheduled [address] DIABETIC EYE EXAM [facility] 00:00:00 [code = DIABETIC EYE Medical Center EXAM] Future Scheduled [address] [facility] 00:00:00 examination Medical Center (regime/therapy) [code = 210264732] Future Scheduled 1975 Urine screening for [facility] 00:00:00 protein (procedure) Medical Center [code = 599478847] Future Scheduled [address] DIABET[address] EYE EXAM [facility] 00:00:00 [code = DIABETIC EYE Medical Center EXAM] Future Scheduled [address] [facility] 00:00:00 examination Medical Center (regime/therapy) [code = 069451513] Future Scheduled 1975 Urine screening for [facility] 00:00:00 protein (procedure) Medical Center [code = 535961192] Future Scheduled [address] DIAB[address] EYE EXAM [facility] 00:00:00 [code = DIABETIC EYE Medical Center EXAM] Future Scheduled [address] [facility] 00:00:00 examination [facility] Center (regime/therapy) [code = 590143698] Future Scheduled 1975 Urine screening for [facility] 00:00:00 protein (procedure) Medical Center [code = 758101845] Future Scheduled [address] DIAB[address] EYE EXAM [facility] 00:00:00 [code = DIABETIC EYE Medical Center EXAM] Future Scheduled [address] [facility] 00:00:00 examination [facility] Center (regime/therapy) [code = 313842610] Future Scheduled 1975 Urine screening for [facility] 00:00:00 protein (procedure) Medical Center [code = 704731664] Future Scheduled [address]AB[address] EYE EXAM [facility] 00:00:00 [code = DIABETIC EYE Medical Center EXAM] Future Scheduled [address] [facility] 00:00:00 examination [facility] Center (regime/therapy) [code = 518431411] Future Scheduled 1975 Urine screening for [facility] 00:00:00 protein (procedure) Medical Center [code = 853705881] Future Scheduled [address] EYE EXAM [facility] 00:00:00 [code = DIABETIC EYE Medical Center EXAM] Future Scheduled [address] [facility] 00:00:00 examination [facility] Center (regime/therapy) [code = 515616271] Future Scheduled 1975 Urine screening for [facility] Test 00:00:00 protein (procedure) Medical Center [code = 071392778] Future Scheduled 1965 COVID-19 VACCINE (#1) [facility] [...] [facility] colon (procedure) [code = 289518451] Future Scheduled [address] [facility] 00:00:00 malignant [facility]oplasm of [facility] colon (procedure) [code = 084538615] Future Scheduled 1965 S[facility]oidoscopy [facility] Future Scheduled [address] [facility] 00:00:00 (combo) [code = CT Medical C enter Colonography (combo)] Future Scheduled [address] [facility] 00:00:00 [facility] colon (procedure) [code = 862763234] Future Scheduled [address] [facility] 00:00:00 [facility] colon (procedure) [code = 762161172] Future Scheduled [address] [facility] 00:00:00 [facility] colon (procedure) [code = 636068170] Future Scheduled [address] [facility] 00:00:00 [facility] colon (procedure) [code = 556348663] Future Scheduled 1965 [facility]oidoscopy [facility]] [facility] Future Scheduled [address] [facility] 00:00:00 (combo) [code = CT Medical C enter Colonography (combo)] Future Scheduled [address] [facility] 00:00:00 [facility] colon (procedure) [code = 602395735] Future Scheduled [address] [facility] 00:00:00 [facility] colon (procedure) [code = 353463885] Future Scheduled [address] [facility] 00:00:00 [facility] of [facility] colon (procedure) [code = 450459827] Future Scheduled [address] [facility] 00:00:00 [facility] colon (procedure) [code = 560292125] Future Scheduled 1965 Sigmoidoscopy [code = [facility] [...] [facility] colon (procedure) [code = 146960281] Future Scheduled [address] [facility] 00:00:00 [facility] colon (procedure) [code = 192320118] Future Scheduled [address] [facility] 00:00:00 malignant [facility] of [facility] colon (procedure) [code = 112544713] Future Scheduled [address] [facility] 00:00:00 malignant neoplasm of [facility] colon (procedure) [code = 744508023] Future Scheduled [address] [facility] 00:00:00 malignant neoplasm of [facility] colon (procedure) [code = 067041696] Future Scheduled 1965 [facility] Future Scheduled [address] [facility] 00:00:00 [facility] colon (procedure) [code = 397283117] Future Scheduled [address] [facility] 00:00:00 [facility] colon (procedure) [code = 789816300] Future Scheduled [address] [facility] 00:00:00 (combo) [code = CT Medical C enter Colonography (combo)] Future Scheduled [address] [facility] 00:00:00 [facility] colon (procedure) [code = 770460800] Future Scheduled [address] [facility] 00:00:00 [facility]oplasm [facility] colon (procedure) [code = 155521249] Future Scheduled [address] [facility] 00:00:00 [facility] colon (procedure) [code = 472307189] Future Scheduled [address] [facility] 00:00:00 [facility] colon (procedure) [code = 053085933] Future Scheduled [address] [facility] 00:00:00 [facility] colon (procedure) [code = 099894691] Future Scheduled 1965 Sigmoidoscopy [code = [facility] [...] [facility] colon (procedure) [code = 039865433] Future Scheduled [address] [facility] 00:00:00 [facility] colon (procedure) [code = 330520750] Future Scheduled [address] [facility] 00:00:00 [facility] neoplasm of [facility] colon (procedure) [code = 182961486] Future Scheduled [address] [facility] 00:00:00 malignant neoplasm of [facility] colon (procedure) [code = 840067365] Future Scheduled 1965 [facility]oid[facility] Medical [facility] Future Scheduled [address] [facility] 00:00:00 (combo) [code = CT Medical C enter Colonography (combo)] Future Scheduled [address] [facility] 00:00:00 malignant neoplasm [facility] colon (procedure) [code = 722421427] Future Scheduled [address] [facility] 00:00:00 [facility] neoplasm of [facility] colon (procedure) [code = 442289592] Future Scheduled [address] [facility] 00:00:00 [facility] neoplasm of [facility] colon (procedure) [code = 252357414] Future Scheduled [address] [facility] 00:00:00 malignant [facility]oplasm of [facility] colon (procedure) [code = 201321781] Future Scheduled 1965 [facility]oidoscopy [facility] Cent[facility] Future Scheduled [address] [facility] 00:00:00 (combo) [code = CT Medical C enter Colonography (combo)] Future Scheduled [address] [facility] 00:00:00 [facility] colon (procedure) [code = 877516658] Future Scheduled [address] [facility] 00:00:00 [facility] colon (procedure) [code = 704135521] Future Scheduled [address] [facility] 00:00:00 [facility]oplasm of [facility] colon (procedure) [code = 087219657] Future Scheduled [address] [facility] 00:00:00 [facility] neoplasm of [facility] colon (procedure) [code = 245156082] Future Scheduled 1965 S[facility]oidoscopy [facility]] Medical [facility] Future Scheduled [address] [facility] 00:00:00 (combo) [code = CT Medical C enter Colonography (combo)] Future Scheduled [address] [facility] 00:00:00 malignant [facility]oplasm [facility] colon (procedure) [code = 344078644] Future Scheduled [address] [facility] 00:00:00 [facility]oplasm of [facility] colon (procedure) [code = 387894261] Future Scheduled [address] [facility] 00:00:00 [facility] neoplasm of [facility] colon (procedure) [code = 525194205] Future Scheduled [address] [facility] 00:00:00 malignant neoplasm of [facility] colon (procedure) [code = 035414621] Future Scheduled 1965 S[facility]oidoscopy [facility]code [facility]] [facility] Future Scheduled [address] [facility] 00:00:00 (combo) [code = CT Medical C enter Colonography (combo)] Future Scheduled 1965 Screening for [facility]procedure) [code = [id number]] Future Scheduled [address] [facility] (procedure) [code = 269467404] Future Scheduled [address] [facility]00 [facility] (procedure) [code = 171971960] Future Scheduled [address] [facility] (procedure) [code = 486969323] Future Scheduled 1965 S[facility]oid[facility]] [facility] Future Scheduled [address] [facility]:00 (combo) [code = CT [facility] Colonography (combo)] Future Scheduled [address] [facility]00 [facility] (procedure) [code = 164090232] Future Scheduled [address] [facility] 00:[facility]:00 [facility] (procedure) [code = 508536854] Future Scheduled [address] [facility] 00:[facility]:00 [facility] (procedure) [code = 013383186] Future Scheduled [address] [facility] 00:[facility]:00 [facility] (procedure) [code = 243566248] Future Scheduled 1965 S[facility]] [facility] Future Scheduled [address] [facility] 00:00:00 (combo) [code = CT [facility] Colonography (combo)] Future Scheduled [address] [facility]:00 [facility] (procedure) [code = 799181274] Future Scheduled [address] [facility] 00:[facility]:00 [facility] (procedure) [code = 264792620] Future Scheduled [address] [facility] 00:[facility]:00 [facility] (procedure) [code = 216619607] Future Scheduled [address] [facility] 00:[facility]:00 [facility] (procedure) [code = 326490338] Future Scheduled 1965 S[facility] [address] [facility] 00:00:00 (combo) [code = CT [facility] Colonography (combo)] Future Scheduled [address] [facility]:00 [facility] (procedure) [code = 875830916] Future Scheduled [address] [facility] 00:[facility]:00 [facility] (procedure) [code = 613839066] Future Scheduled [address] [facility] 00:[facility]:00 [facility] (procedure) [code = 355942381] Future Scheduled [address] [facility] 00:[facility]:00 [facility] (procedure) [code = 708287584] Future Scheduled 1965 Sigmoidoscopy [code [facility] [code = 545869725] Future Scheduled [address] [facility]00 [facility] (procedure) [code = 946641797] Future Scheduled [address] [facility] 00:[facility]:00 [facility] (procedure) [code = 757864487] Future Scheduled [address] [facility] 00:[facility]:00 [facility] (procedure) [code = 161148887] Future Scheduled 1965 S[facility]] [facility]uled [address] [facility] 00:[facility]:00 [facility] (procedure) [code = 344895850] Future Scheduled [address] [facility] 00:00:00 [facility] (procedure) [code = 702697030] Future Scheduled [address] [facility] 00:[facility]:00 [facility] (procedure) [code = 741160469] Future Scheduled [address] [facility] 00:00:00 (combo) [code = CT [facility] Colonography (combo)] Future Scheduled [address] [facility] 00:00:00 [facility] (procedure) [code = 768459031] Future Scheduled [address] [facility] 00:00:00 [facility] (procedure) [code = 305106181] Future Scheduled [address] [facility] 00:00:00 [facility] (procedure) [code = 702679099] Future Scheduled [address] [facility] 00:00:00 [facility] (procedure) [code = 602808077] Future Scheduled 1965 S[facility]oidoscopy [facility]] [facility] Future Scheduled [address] [facility] 00[facility]00:00 [facility] (procedure) [code = 439708915] Future Scheduled 1965 [facility] Future Scheduled [address] [facility] 00:00:00 (combo) [code = CT [facility] Colonography (combo)] Future Scheduled [address] [facility] 00:[facility]:00 [facility] (procedure) [code = 183718260] Future Scheduled [address] [facility] 00:00:00 [facility] (procedure) [code = 874349634] Future Scheduled [address] [facility] 00:00:00 [facility] (procedure) [code = 655900771] Future Scheduled [address] [facility] 00:00:00 [facility] (procedure) [code = 598556578] Future Scheduled 1965 [facility]] [facility] Future Scheduled [address] [facility] 00:00:00 (combo) [code = CT [facility] Colonography (combo)] Future Scheduled [address] [facility] 00:00:00 [facility] (procedure) [code = 914543947] Future Scheduled [address] [facility] 00:00:00 [facility] (procedure) [code = 132047568] Future Scheduled [address] [facility] 00:00:00 [facility] (procedure) [code = 039334600] Future Scheduled [address] [facility] 00:00:00 [facility] (procedure) [code = 372525731] Future Scheduled 1965 S[facility]oidoscopy [facility]] [facility] Future Scheduled [address] [facility] 00:00:00 (combo) [code = CT [facility] Colonography (combo)] Future Scheduled [address] [facility] 00:00:00 [facility] (procedure) [code = 216897215] Future Scheduled [address] [facility] 00:00:00 [facility] (procedure) [code = 613163623] Future Scheduled [address] [facility] 00:00:00 [facility] (procedure) [code = 396164595] Future Scheduled [address] [facility] 00:00:00 [facility] (procedure) [code = 754186283] Future Scheduled 1965 S[facility]oidoscopy [facility]] Medical [facility] Future Scheduled [address] [facility] 00:00:00 (combo) [code = CT [facility] enter Colonography (combo)] Future Scheduled [address] [facility] 00:00:00 [facility] (procedure) [code = 607700870] Future Scheduled [address] [facility] 00:00:00 [facility] (procedure) [code = 314490822] Future Scheduled [address] [facility] 00:00:00 [facility] (procedure) [code = 781659221] Future Scheduled [address] [facility] 00:00:00 [facility] (procedure) [code = 188786384] Future Scheduled 1965 [facility]oid[facility] [address] [facility] 00:00:00 (combo) [code = CT Medical [facility] enter Colonography (combo)] Future Scheduled [address] [facility] 00:00:00 [facility] (procedure) [code = 821485100] Future Scheduled [address] [facility] 00:00:00 [facility] (procedure) [code = 251283593] Future Scheduled [address] [facility] 00:00:00 [facility] (procedure) [code = 220170117] Future Scheduled [address] [facility] 00:00:00 [facility] (procedure) [code = 943891776] Future Scheduled 1965 S[facility]oidoscopy [facility] [address] [facility] 00:00:00 (combo) [code = CT [facility] enter Colonography (combo)] Future Scheduled [address] [facility] (procedure) [code = 628685294] Future Scheduled [address] [facility] 00:[facility]:00 [facility] (procedure) [code = 230371568] Future Scheduled [address] [facility] 00:00:00 [facility] (procedure) [code = 087343097] Future Scheduled [address] [facility] 00:00:00 [facility] (procedure) [code = 569694612] Future Scheduled 1965 S[facility]oidoscopy [facility]] [facility] Future Scheduled [address] [facility] 00:00:00 (combo) [code = CT [facility] Colonography (combo)] Future Scheduled [address] [facility] 00:00:00 [facility] (procedure) [code = 956152964] Future Scheduled [address] [facility] 00:00:00 [facility] (procedure) [code = 734442208] Goal Plan of Care Note [code = 25521-0] Goal Plan of Care Note [code = 71481-1] Goal Plan of Care Note [code = 31893-8] Goal Plan of Care Note [code = 82287-9] Goal Plan of Care Note [code = 98017-4] Goal Plan of Care Note [code = 59477-7] Goal Plan of Care Note [code = 32701-6] Goal Plan of Care Note [code = 32387-1] Goal Plan of Care Note [code = 88669-6] Goal Plan of Care Note [code = 36996-2] Goal Plan of Care Note [code = 47159-5] Goal Plan of Care Note [code = 47525-5] Goal Plan of Care Note [code = 67504-5] Goal Plan of Care Note [code = 65078-4] Goal Plan of Care Note [code = 87324-0] Goal Plan of Care Note [code = 56501-3] Goal Plan of Care Note [code = 00968-9] Goal Plan of Care Note [code = 14104-0] Goal Plan of Care Note [code = 97600-3] Goal Plan of Care Note [code = 32247-6] Goal Plan of Care Note [code = 45905-0] Goal Plan of Care Note [code = 10517-8] Goal Plan of Care Note [code = 28665-4] Goal Plan of Care Note [code = 30476-7] Goal Plan of Care Note [code = 89081-5] Goal Plan of Care Note [code = 69593-5] Goal Plan of Care Note [code = 89966-0] Goal Plan of Care Note [code = 91493-2] Goal Plan of Care Note [code = 24019-5] Goal Plan of Care Note [code = 36373-1] Goal Plan of Care Note [code = 18860-8] Goal Plan of Care Note [code = 47812-1] Goal Plan of Care Note [code = 45271-7] Goal Plan of Care Note [code = 81510-5] Goal Plan of Care Note [code = 66349-2] Goal Plan of Care Note [code = 17036-1] Goal Plan of Care Note [code = 58092-3] Goal Plan of Care Note [code = 35902-5] Goal Plan of Care Note [code = 73951-6] Goal Plan of Care Note [code = 82964-1] Goal Plan of Care Note [code = 01833-6] Goal Plan of Care Note [code = 78984-8] Goal Plan of Care Note [code = 52451-6] Goal Plan of Care Note [code = 88324-3] Goal Plan of Care Note [code = 10552-2] Goal Plan of Care Note [code = 72986-0] Goal Plan of Care Note [code = 28712-1] Goal Plan of Care Note [code = 21545-4] Goal Plan of Care Note [code = 21873-4] Goal Plan of Care Note [code = 84348-6] Goal Plan of Care Note [code = 96887-1] Goal Plan of Care Note [code = 83741-3] Goal Plan of Care Note [code = 22126-8] Goal Plan of Care Note [code = 71763-5] Goal Plan of Care Note [code = 17260-8] Goal Plan of Care Note [code = 80860-2] Goal Plan of Care Note [code = 64419-3] Goal Plan of Care Note [code = 50435-7] Goal Plan of Care Note [code = 67374-2] Goal Plan of Care Note [code = 81252-0] Goal Plan of Care Note [code = 95917-9] Goal Plan of Care Note [code = 85666-9] Goal Plan of Care Note [code = 96255-7] Goal Plan of Care Note [code = 48794-1] Goal Plan of Care Note [code = 68151-0] Goal Plan of Care Note [code = 89887-3] Goal Plan of Care Note [code = 67803-9] Goal Plan of Care Note [code = 65755-9] Goal Plan of Care Note [code = 61048-8] Goal Plan of Care Note [code = 98407-2] Goal Plan of Care Note [code = 00516-1] Goal Plan of Care Note [code = 33407-1] Goal Plan of Care Note [code = 23634-0] Goal Plan of Care Note [code = 20627-7] Goal Plan of Care Note [code = 67834-3] Goal Plan of Care Note [code = 70478-4] Goal Plan of Care Note [code = 06218-2] Goal Plan of Care Note [code = 43076-8] Goal Plan of Care Note [code = 41647-2] Goal Plan of Care Note [code = 09277-1] Goal Plan of Care Note [code = 68122-2] Goal Plan of Care Note [code = 55178-0] Goal Plan of Care Note [code = 38223-5] Goal Plan of Care Note [code = 36664-1] Goal Plan of Care Note [code = 25799-0] Goal Plan of Care Note [code = 73934-3] Goal Plan of Care Note [code = 04972-7] Goal Plan of Care Note [code = 24515-9] Goal Plan of Care Note [code = 07260-4] Goal Plan of Care Note [code = 25614-2] Goal Plan of Care Note [code = 48409-1] Goal Plan of Care Note [code = 34434-3] Goal Plan of Care Note [code = 95736-8] Goal Plan of Care Note [code = 59295-0] Goal Plan of Care Note [code = 87960-8] Goal Plan of Care Note [code = 44585-6] Goal Plan of Care Note [code = 07706-9] Goal Plan of Care Note [code = 05377-6] Goal Plan of Care Note [code = 04606-6] Goal Plan of Care Note [code = 84133-9] Goal Plan of Care Note [code = 17976-4] Goal Plan of Care Note [code = 20499-3] Goal Plan of Care Note [code = 17137-8] Goal Plan of Care Note [code = 95495-6] Goal Plan of Care Note [code = 10289-1] Goal Plan of Care Note [code = 43773-3] Goal Plan of Care Note [code = 72911-8] Goal Plan of Care Note [code = 72693-1] Goal Plan of Care Note [code = 06496-9] Goal Plan of Care Note [code = 85337-7] Goal Plan of Care Note [code = 64024-9] Goal Plan of Care Note [code = 29409-2] Goal Plan of Care Note [code = 46905-2] Goal Plan of Care Note [code = 12549-1] Goal Plan of Care Note [code = 50971-4] Goal Plan of Care Note [code = 85598-6] Goal Plan of Care Note [code = 48308-1] Goal Plan of Care Note [code = 73230-8] Goal Plan of Care Note [code = 51262-5] Goal Plan of Care Note [code = 93990-2] Goal Plan of Care Note [code = 53872-0] Goal Plan of Care Note [code = 10454-5] Goal Plan of Care Note [code = 81518-1] Goal Plan of Care Note [code = 52784-9] Goal Plan of Care Note [code = 22185-1] Goal Plan of Care Note [code = 93570-0] Goal Plan of Care Note [code = 40154-6] Goal Plan of Care Note [code = 67757-8] Goal Plan of Care Note [code = 35450-5] Goal Plan of Care Note [code = 90479-8] Goal Plan of Care Note [code = 37241-0] Goal Plan of Care Note [code = 31604-0] Goal Plan of Care Note [code = 21826-0] Goal Plan of Care Note [code = 99449-8] Goal Plan of Care Note [code = 32669-5] Goal Plan of Care Note [code = 43473-6] Goal Plan of Care Note [code = 21497-3] Goal Plan of Care Note [code = 90209-5] Goal Plan of Care Note [code = 29628-3] Goal Plan of Care Note [code = 38279-2] Goal Plan of Care Note [code = 74277-0] Goal Plan of Care Note [code = 19712-8] Goal Plan of Care Note [code = 49597-8] Goal Plan of Care Note [code = 67025-2] Goal Plan of Care Note [code = 26760-6] Goal Plan of Care Note [code = 30579-2] Goal Plan of Care Note [code = 83582-9] Goal Plan of Care Note [code = 78256-7] Goal Plan of Care Note [code = 14782-5] Goal Plan of Care Note [code = 23848-0] Goal Plan of Care Note [code = 89551-1] Goal Plan of Care Note [code = 01994-5] Goal Plan of Care Note [code = 20202-4] Goal Plan of Care Note [code = 37824-4] Goal Plan of Care Note [code = 24938-9] Goal Plan of Care Note [code = 35016-3] Goal Plan of Care Note [code = 65811-4] Goal Plan of Care Note [code = 64989-6] Goal Plan of Care Note [code = 51520-5] Goal Plan of Care Note [code = 13473-8] Goal Plan of Care Note [code = 99069-5] Goal Plan of Care Note [code = 54178-5] Goal Plan of Care Note [code = 72842-1] Goal Plan of Care Note [code = 88665-3] Goal Plan of Care Note [code = 33528-0] Goal Plan of Care Note [code = 13231-7] Goal Plan of Care Note [code = 52231-9] Goal Plan of Care Note [code = 88991-3] Goal Plan of Care Note [code = 01505-5] Goal Plan of Care Note [code = 09393-3] Goal Plan of Care Note [code = 03774-1] Goal Plan of Care Note [code = 49879-1] Goal Plan of Care Note [code = 75272-9] Goal Plan of Care Note [code = 90253-3] Goal Plan of Care Note [code = 33842-8] Goal Plan of Care Note [code = 38065-3] Goal Plan of Care Note [code = 78671-1] Goal Plan of Care Note [code = 77542-5] Goal Plan of Care Note [code = 47425-3] Goal Plan of Care Note [code = 88623-7] Goal Plan of Care Note [code = 72958-0] Goal Plan of Care Note [code = 65537-3] Goal Plan of Care Note [code = 39576-7] Goal Plan of Care Note [code = 06875-4] Goal Plan of Care Note [code = 13294-6] Goal Plan of Care Note [code = 98021-5] Goal Plan of Care Note [code = 11178-3] Goal Plan of Care Note [code = 17580-6] Goal Plan of Care Note [code = 47448-9] Goal Plan of Care Note [code = 24763-3] Goal Plan of Care Note [code = 72609-9] Goal Plan of Care Note [code = 76742-5] Goal Plan of Care Note [code = 81263-7] Goal Plan of Care Note [code = 14012-8] Goal Plan of Care Note [code = 25676-8] Goal Plan of Care Note [code = 89131-6] Goal Plan of Care Note [code = 05322-7] Goal Plan of Care Note [code = 14921-3] Goal Plan of Care Note [code = 81030-0] Goal Plan of Care Note [code = 12990-6] Goal Plan of Care Note [code = 17548-3] Goal Plan of Care Note [code = 56746-4] Goal Plan of Care Note [code = 88578-9] Goal Plan of Care Note [code = 23213-3] Goal Plan of Care Note [code = 69495-7] Goal Plan of Care Note [code = 55574-5] Goal Plan of Care Note [code = 13928-0] Goal Plan of Care Note [code = 00486-7] Goal Plan of Care Note [code = 74844-2] Goal Plan of Care Note [code = 69822-5] Goal Plan of Care Note [code = 02223-4] Goal Plan of Care Note [code = 98899-8] Goal Plan of Care Note [code = 03925-2] Goal Plan of Care Note [code = 27752-1] Goal Plan of Care Note [code = 96367-5] Goal Plan of Care Note [code = 06286-1] Goal Plan of Care Note [code = 59795-0] Goal Plan of Care Note [code = 47923-1] Goal Plan of Care Note [code = 31943-5] Goal Plan of Care Note [code = 80293-9] Goal Plan of Care Note [code = 50198-5] Goal Plan of Care Note [code = 29641-8] Goal Plan of Care Note [code = 98567-2] Goal Plan of Care Note [code = 57791-2] Goal Plan of Care Note [code = 75528-2] Goal Plan of Care Note [code = 44840-1] Goal Plan of Care Note [code = 60558-3] Goal Plan of Care Note [code = 38883-6] Goal Plan of Care Note [code = 39482-1] Goal Plan of Care Note [code = 97553-2] Goal Plan of Care Note [code = 11756-4] Goal Plan of Care Note [code = 40830-1] Goal Plan of Care Note [code = 66966-0] Goal Plan of Care Note [code = 65482-0] Goal Plan of Care Note [code = 20900-2] Goal Plan of Care Note [code = 78560-9] Goal Plan of Care Note [code = 18612-4] Goal Plan of Care Note [code = 17732-1] Goal Plan of Care Note [code = 54609-1] Goal Plan of Care Note [code = 61803-3] Goal Plan of Care Note [code = 59852-9] Goal Plan of Care Note [code = 92267-4] Goal Plan of Care Note [code = 09922-0] Goal Plan of Care Note [code = 71006-5] Goal Plan of Care Note [code = 75571-4] Goal Plan of Care Note [code = 49702-7] Goal Plan of Care Note [code = 79223-8] Goal Plan of Care Note [code = 40040-2] Goal Plan of Care Note [code = 57409-5] Goal Plan of Care Note [code = 85238-4] Goal Plan of Care Note [code = 13332-9] Goal Plan of Care Note [code = 87174-0] Goal Plan of Care Note [code = 67378-6] Goal Plan of Care Note [code = 73602-4] Goal Plan of Care Note [code = 33908-4] Goal Plan of Care Note [code = 47689-0] Goal Plan of Care Note [code = 60151-6] Goal Plan of Care Note [code = 44316-5] Goal Plan of Care Note [code = 71320-3] Goal Plan of Care Note [code = 44803-2] Goal Plan of Care Note [code = 10898-0] Goal Plan of Care Note [code = 93699-5] Goal Plan of Care Note [code = 06468-4] Goal Plan of Care Note [code = 47385-7] Goal Plan of Care Note [code = 52316-3] Goal Plan of Care Note [code = 95287-8] Goal Plan of Care Note [code = 38954-8] Goal Plan of Care Note [code = 14058-0] Goal Plan of Care Note [code = 10904-5] Goal Plan of Care Note [code = 15521-4] Goal Plan of Care Note [code = 35351-9] Goal Plan of Care Note [code = 58793-9] Goal Plan of Care Note [code = 71045-0] Goal Plan of Care Note [code = 96952-2] Goal Plan of Care Note [code = 02086-7] Goal Plan of Care Note [code = 89812-4] Goal Plan of Care Note [code = 89593-9] Goal Plan of Care Note [code = 36109-4] Goal Plan of Care Note [code = 06119-9] Goal Plan of Care Note [code = 13157-1] Goal Plan of Care Note [code = 81824-5] Goal Plan of Care Note [code = 27033-7] Goal Plan of Care Note [code = 36043-9] Goal Plan of Care Note [code = 74235-3] Goal Plan of Care Note [code = 36819-5] Goal Plan of Care Note [code = 89950-0] Goal Plan of Care Note [code = 14849-8] Goal Plan of Care Note [code = 15550-5] Goal Plan of Care Note [code = 08638-8] Goal Plan of Care Note [code = 19112-3] Goal Plan of Care Note [code = 87016-3] Goal Plan of Care Note [code = 72723-9] Goal Plan of Care Note [code = 99662-8] Goal Plan of Care Note [code = 11439-8] Goal Plan of Care Note [code = 02493-0] Goal Plan of Care Note [code = 46604-7] Goal Plan of Care Note [code = 90658-7] Goal Plan of Care Note [code = 19642-2] Goal Plan of Care Note [code = 18810-2] Goal Plan of Care Note [code = 65382-5] Goal Plan of Care Note [code = 66386-0] Goal Plan of Care Note [code = 26412-5] Goal Plan of Care Note [code = 33056-6] Goal Plan of Care Note [code = 31808-6] Goal Plan of Care Note [code = 45877-8] Goal Plan of Care Note [code = 34491-4] Goal Plan of Care Note [code = 87929-8] Goal Plan of Care Note [code = 97110-5] Goal Plan of Care Note [code = 98177-5] Goal Plan of Care Note [code = 83451-0] Goal Plan of Care Note [code = 09180-6] Goal Plan of Care Note [code = 79749-8] Goal Plan of Care Note [code = 62316-8] Goal Plan of Care Note [code = 84451-6] Goal Plan of Care Note [code = 67752-5] Goal Plan of Care Note [code = 93739-5] Goal Plan of Care Note [code = 57332-3] Goal Plan of Care Note [code = 25338-4] Goal Plan of Care Note [code = 95656-3] Goal Plan of Care Note [code = 12815-5] Goal Plan of Care Note [code = 22613-6] Goal Plan of Care Note [code = 48617-0] Goal Plan of Care Note [code = 53370-1] Goal Plan of Care Note [code = 43191-7] Goal Plan of Care Note [code = 54897-5] Goal Plan of Care Note [code = 16897-8] Goal Plan of Care Note [code = 12083-0] Goal Plan of Care Note [code = 85169-1] Goal Plan of Care Note [code = 40408-9] Goal Plan of Care Note [code = 56792-9] Goal Plan of Care Note [code = 73082-7] Goal Plan of Care Note [code = 89781-8] Goal Plan of Care Note [code = 84840-9] Goal Plan of Care Note [code = 08422-7] Goal Plan of Care Note [code = 32523-3] Goal Plan of Care Note [code = 47917-3] Goal Plan of Care Note [code = 61494-9] Goal Plan of Care Note [code = 49680-5] Goal Plan of Care Note [code = 04528-1] Goal Plan of Care Note [code = 11252-3] Goal Plan of Care Note [code = 54767-5] Goal Plan of Care Note [code = 10648-4] Goal Plan of Care Note [code = 41475-2] Goal Plan of Care Note [code = 18319-1] Goal Plan of Care Note [code = 37001-1] Goal Plan of Care Note [code = 27726-5] Goal Plan of Care Note [code = 52117-6] Goal Plan of Care Note [code = 01732-0] Goal Plan of Care Note [code = 69475-8] Goal Plan of Care Note [code = 56889-9] Goal Plan of Care Note [code = 47660-3] Goal Plan of Care Note [code = 04114-0] Goal Plan of Care Note [code = 73559-5] Goal Plan of Care Note [code = 73365-9] Goal Plan of Care Note [code = 11641-4] Goal Plan of Care Note [code = 98550-1] Goal Plan of Care Note [code = 67383-2] Goal Plan of Care Note [code = 86225-1] Goal Plan of Care Note [code = 54705-4] Goal Plan of Care Note [code = 35034-9] Goal Plan of Care Note [code = 12422-5] Goal Plan of Care Note [code = 18637-6] Goal Plan of Care Note [code = 89931-4] Goal Plan of Care Note [code = 33228-8] Goal Plan of Care Note [code = 61645-9] Goal Plan of Care Note [code = 53621-6] Goal Plan of Care Note [code = 85705-1] Goal Plan of Care Note [code = 26882-2] Goal Plan of Care Note [code = 39337-1] Goal Plan of Care Note [code = 10438-9] Goal Plan of Care Note [code = 06361-0] Goal Plan of Care Note [code = 89345-4] Goal Plan of Care Note [code = 33512-1] Goal Plan of Care Note [code = 84485-5] Goal Plan of Care Note [code = 22301-5] Goal Plan of Care Note [code = 89742-4] Goal Plan of Care Note [code = 79973-3] Goal Plan of Care Note [code = 12766-7] Goal Plan of Care Note [code = 56042-2] Goal Plan of Care Note [code = 21323-6] Goal Plan of Care Note [code = 43995-4] Goal Plan of Care Note [code = 46528-8] Goal Plan of Care Note [code = 14614-1] Goal Plan of Care Note [code = 82541-8] Goal Plan of Care Note [code = 76126-5] Goal Plan of Care Note [code = 24958-3] Goal Plan of Care Note [code = 17929-1] Encounters Start End Encounter Admission Attending Care Care Encounter Source Date/Time Date/Time Type Type Clinicians Facility Department ID 2022-04-01 Outpatient 3 [id number] [facility] REF [id number] [facility] 15:21:07 [facility] [facility] 2022-03-31 Outpatient 3 [id number] [facility] REF [id number] [facility] 14:48:02 [facility] [place] 2022-03-25 Outpatient 3 [id number] E[facility] REF [id number] [facility] 10:48:24 [facility] [place] 2021-02-05 Outpatient BHARAT, SLE Surgery [id number] [facility] 05:27:44 IRMA 2021-02-04 Outpatient ALAM, SLE Surgery [id number] [facility] 23:01:57 EDWARBOOB 2022-09-10 2022-09-10 Outpatient SFA SFA [id number] 023 [place] 08:13:34 08:13:34 0511 [facility] 2022-09-08 2022-09-08 Outpatient SFA SFA [id number] 023 [place] 17:33:06 17:33:06 0509 [facility] 2022-08-19 2022-08-19 Outpatient SFA SFA 00123-2 023 [place] 10:53:44 10:53:44 0419 [facility] 2022-08-18 2022-08-18 Outpatient Rayne DENNISON [facility] [id number] Univers 00:00:00 00:00:00 HO [facility] 2022-04-21 2022-07-23 Outpatient RECERTIFIC MICHAEL ENCCLR ENCCLR [id number] ENCCLR 00:00:00 00:00:00 JACINTO WEBBER 2022-07-20 2022-07-20 Outpatient SFA SFA [id number] 023 [place] 11:34:05 11:34:05 0320 [facility] 2022-06-29 2022-06-29 Outpatient SFA [facility] [id number] 023 [place] 11:09:32 11:09:32 0227 [facility] 2022-06-09 2022-06-09 Outpatient Rayne FERNANDEZ [facility] [id number] Univers 13:30:00 13:30:00 JOSELUIS [facility] 2022-05-28 2022-05-28 Outpatient [facility] [id number] 023 [place] 09:36:19 09:36:19 0126 [facility] 2022-05-28 2022-05-28 Orders Doctor BRIANNE 1.2.840.114 [id number] Univers 00:00:00 00:00:00 Only Unassigned, RONNY 350.1.13.10 ity of [place] [facility] 4.2.7.2.686 Tony as [id number] [address] 2022-04-23 2022-04-23 Outpatient SFA SFA [id number] 022 [place] 11:12:51 11:12:51 1222 [facility] 2022-04-23 2022-04-23 Outpatient [id number] [id number] 00:00:00 00:00:00 Visit 7y07-958p a29-779j-8 -8818-496 [id number] 9782969v4 6681f3 2022-04-22 2022-04-22 Outpatient SFA SFA [id number] 022 [place] 11:56:37 11:56:37 1221 F Martínez 2022-04-21 2022-04-21 Outpatient [place] ENCCLR ENCCLR [id number] ENCCLR 00:00:00 00:00:00 ADMISSION YGERRI 2022-04-20 2022-04-20 Outpatient SFA SFA 24201-4 022 [place] 13:44:26 13:44:26 1219 F Martínez 2022-04-20 2022-04-20 Outpatient [id number]- [id number] 96930v-7 00:00:00 00:00:00 Visit 868d-4ba4 68d-4ba4-8 -857d-890 57d-8900b2 [id number] 41944i 2022-04-07 2022-04-17 Inpatient 3 [facility] ENCPL OTH 5814 [facility] 18:25:00 16:40:00 hemiguel, 1206 [facility] 2022-04-15 2022-04-15 Outpatient Provider, SANDIE WILSON SN422 [id number] [facility] 03:25:00 03:25:00 Undefined 02 [facility] 2022-03-17 2022-03-17 Outpatient SFA SFA [id number] 022 [place] 09:09:19 09:09:19 1115 F Martínez 2022-03-17 2022-03-17 Outpatient [id number]- [id number] on327b-q 00:00:00 00:00:00 Visit i129-4689 106-4636-b -v7es-949 5be-547ae2 lg470wei6 86dad8 2022-03-04 2022-03-04 Outpatient SFA SFA 65551-3 022 [place] 13:56:07 13:56:07 1102 F Martínez 2022-03-04 2022-03-04 Outpatient [id number]- [id number] 7246be-9 00:00:00 00:00:00 Visit 9529-42f7 529-42f7-a -wt53-ye1 w35-lq237y 19i4dk0f3 5cb7c5 2022-02-24 2022-02-24 [facility] [id number] 00:00:00 00:00:00 [facility] 2022-02-24 2022-02-24 [facility] [id number] 00:00:00 00:00:00 [facility] 2022-02-17 2022-02-17 Outpatient SFA [facility] [id number] 022 [place] 14:09:24 14:09:24 1018 F Martínez 2022-02-17 2022-02-17 Outpatient [id number]- [id number] qq934y-o 00:00:00 00:00:00 Visit h66w-85k5 39e-47c5-b -b0i4-3jd 5w2-3rft9s [id number] 565020 4471-10-04 2022-02-03 Outpatient SFA SFA 64879-1 022 [place] 13:41:10 13:41:10 1004 F Martínez 2022-02-03 2022-02-03 Outpatient [id number] [id number] 00:00:00 00:00:00 Visit 4378-45d4 378-45d4-b -pg6u-222 g6g-2616y3 0d00017bd 0427fc 2021-12-23 2021-12-23 Telephone [facility] 1.2.161.062 [id number] Univers 00:00:00 00:00:00 [facility] 350.1.13.10 it y of [place] 4.2.7.2.686 Tony as CAR?BLEA [id number] [address] MEDICAL OFFICE BUILDING 2021-12-04 2021-12-04 Outpatient [id number]- [id number] [id number] 00:00:00 00:00:00 Visit 55w7-3y03 4n6-8a66-9 -76p3-d2l 1a1-u2gcz7 sa6660t39 255c45 2021-12-02 2021-12-02 Outpatient R KHOA [facility] [id number] Univers 16:00:00 16:00:00 [facility] 2021-12-02 2021-12-02 Private Advisor Lab, Ang - Db [facility] 1.2.840.1 14 [id number] Univers 15:15:00 15:16:31 Visit [place] [address].1.13.10 ity of [place] 4.2.7.2.686 Tony as CAR?BLEA [id number] [facility] [address] MEDICAL OFFICE BUILDING 2021-12-02 2021-12-02 [facility] [id number] Univers 14:30:00 14:57:05 [facility] 2021-12-02 2021-12-02 [facility] 1.2.840.114 [id number] Univers 14:30:00 14:57:05 Visit [facility] 350.1.13.10 it y of [place] 4.2.7.2.686 Tony as CAR?BLEA [id number] [address] MEDICAL OFFICE BUILDING 2021-12-02 2021-12-02 Outpatient [id number] 9i2430-8 00:00:00 00:00:00 Visit 2ik8-3649 db2-4873-a -k4n7-346 1d1-1252n1 5i00u67q5 1f79f2 2021-11-26 2021-11-26 [facility] [id number] Univers 14:00:00 14:00:00 [facility] 2021-10-21 2021-10-21 [facility] [id number] Univers 14:30:00 14:30:00 [facility] 2021-07-29 2021-07-29 Telephone [facility] 1.2.811.899 [id number] Univers 00:00:00 00:00:00 [place] [address].1.13.10 it y of [place] 4.2.7.2.686 Tony as CAR?BLEA [id number] Me [address] MEDICAL OFFICE BUILDING 2021-07-15 2021-07-15 Outpatient R KHOA [facility] [id number] Univers 09:30:00 10:12:40 WENTONG ity of [facility] 2021-07-15 2021-07-15 Office Fernandez, [facility] 1.2.840.114 [id number] Univers 09:30:00 10:12:40 Visit [facility] 350.1.13.10 it y of [place] 4.2.7.2.686 Tony as CAR?BLEA [id number] Me [address] MEDICAL OFFICE BUILDING 2021-03-06 2021-03-06 Hospital Radiology [facility] 1.2.840.114 [id number] Univers 12:24:35 23:59:00 Encounter [place] 350.1.13.10 [place] [id number] [address] 2021-03-06 2021-03-06 Hospital Radiology [facility] 1.2.840.114 [id number] Univers 12:23:40 12:23:40 Encounter [place] 350.1.13.10 [place] [id number] [address] 2021-03-06 2021-03-06 Outpatient R RADIOLOGY [facility] [id number] Univers 12:23:40 12:23:40 ity of [facility] 2021-03-06 2021-03-06 Outpatient R RADIOLOGY [facility] [id number] Univers 12:23:40 12:23:40 ity of [facility] 2021-02-27 2021-02-27 Outpatient R RADIOLOGY [facility] [id number] Univers 00:00:00 00:00:00 ity of [facility] 2021-02-27 2021-02-27 Outpatient R RADIOLOGY [facility] [id number] Univers 00:00:00 00:00:00 ity of [facility] 2021-02-13 2021-02-[address] [facility] [id number] 00:00:00 00:00:00 [facility] 2021-02-03 2021-02-03 Orders Doctor BRIANNE 1.2.840.114 [id number] Univers 00:00:00 00:00:00 Only Unassigned, RONNY 350.1.13.10 ity of [place] [facility] 4.2.7.2.686 Tony as [id number] [address] 2020-11-22 2020-11-22 [facility] [id number] Univers 13:00:00 13:00:00 SAM stewart [facility] 2020-10-08 2020-10-08 [facility]phone [facility] 1.2.840.114 [id number] 00:00:00 00:00:00 Sam Doherty 350.1.13.10 [place] 4.2.7.2.686 Professio [id number] [address] 2020-10-07 2020-10-07 Orders Doctor BRIANNE 1.2.840.114 [id number] 00:00:00 00:00:00 Only Unassigned, RONNY 350.1.13.10 [facility] 4.2.7.2.686 [id number] [facility] 2020-10-04 2020-10-04 Out[facility] [id number] Univers 14:00:00 14:00:00 SAM stewatr [facility] 2020-09-19 2020-09-19 Outpatient [facility] [id number] Univers 11:00:00 11:00:00 DEAN sheffield [facility] 2020-09-10 2020-09-10 [facility] [id number] Univers 10:00:00 10:00:00 DEAN sheffield [facility] 2020-08-20 2020-08-20 Office [facility] 1.2.840.114 [id number] 13:15:09 13:42:21 Visit Dean Doherty 350.1.13.10 [place] 4.2.7.2.686 Professio [id number] nal 059 [facility] 2020-08-20 2020-08-20 Outpatient Rayne GARCIA, [facility] [id number] Univers 13:20:00 13:20:00 DEAN sheffield [facility] 2019-12-14 2019-12-14 Outpatient SLEH [facility] [id number] [facility] 00:00:00 00:00:00 2019-11-14 2019-11-14 Outpatient NAKITA GIPSON, SLE [facility] [id number] [facility] 00:00:00 00:00:00 HUNTER 2019-11-14 2019-11-14 Outpatient SLEH [facility] [id number] [facility] 00:00:00 00:00:00 2019-11-14 2019-11-14 Outpatient EL SLEH [facility] [id number] [facility] 00:00:00 00:00:00 2019-10-31 2019-10-31 Outpatient SLEH [facility] [id number] [facility] 00:00:00 00:00:00 2019-10-31 2019-10-31 Outpatient SLEH SLEH [id number] [facility] 00:00:00 00:00:00 2019-10-17 2019-10-17 Outpatient SLEH [facility]H [id number] [facility] 00:00:00 00:00:00 2019-10-17 2019-10-17 Outpatient EL SLEH [facility] [id number] [facility] 00:00:00 00:00:00 2019-07-13 2019-07-13 Outpatient SLEH SLEH [id number] 2-2 [facility] 00:00:00 00:00:00 [id number] 2019-06-15 2019-06-15 Outpatient SLEH [facility] [id number] 2-2 [facility] 00:00:00 00:00:00 [id number] Results Test Description Test Time Test Comments Results Result Comments Source HEMOGLOBIN A1c 2022-09-11 05:14:56 Test Item Value Reference Range Interpretation Comme nts HEMOGLOBIN A1c (test code = 5.9 % 4.2-5.6 H [employer] 52860) GUIDELINES FOR HGB A1C: PREDIABETES/INC REASED RISK . . . . . . . 5.7-6.4% DIAGNO SIS OF DIABETES . . . . . . . . . >=6.5% WITH CONFIRMATION OR APPROPRIATE SYM PTOMS NOTE: ASSAY MAY BE AFFECTED BY HEM OGLOBINOPATHIES (SICKLE CELL ANEMIA, S- C DISEASE, OTHERS) OR ARTIFICIALLY LO WERED BY DECREASED RED CELL SURVIVAL ( HEMOLYTIC ANEMIAS, BLOOD LOSS, ETC.). CO NSIDER ALTERNATE TESTING OR LABORATORY C ONSULTATION. UNLESS OTHERWISE INDIC ATED, ALL TESTING PERFORMED AT [facility], [place]. [address] [place] [address] CONNIE CHRISTENSEN DIRECTOR: Chuckie NAVA MYKE NUMBER [id number] CAP ACCREDITATION N O. [id number] COMPREHENSIVE METABOLIC [id number] 05:50:10 Test Item Value Reference Range Interpretation Comments GLUCOSE (test code = 199 MG/DL 70-99 H 2216) BUN (test code = 53 MG/DL 6-20 H 2207) CREATININE (test 9.05 MG/DL 0.80-1.40 H code = 221) eGFR (2020 CKD-EPI) 6 ML/MIN/1.73 >60 L (test code = 21399) CALC BUN/CREAT (test 6 RATIO 6-28 code = 2235) SODIUM (test code = 135 MEQ/L 914-917 7923) POTASSIUM (test code 4.3 MEQ/L 3.5-5.4 = 2227) CHLORIDE (test code 92 MEQ/L 95-107 L = 221) CARBON DIOXIDE (test 24 MEQ/L 19-31 code = 2206) CALCIUM (test code = 8.7 MG/DL 8.5-10.5 2208) PROTEIN, TOTAL (test 7.9 G/DL 6.1-8.3 code = 2229) ALBUMIN (test code = 4.7 G/DL 3.5-5.2 [...] AST (test code = 20 U/L 9-50 2218) ALT (test code = 15 U/L 5-50 CPL pal s 2219) important patho logy staff changes effective 07/01. New patholo gy staff will prov lisa uninterrupted, excellent patie nt care and clinic al consultation. S ee URL: [email or web address]. UNLE SS OTHERWISE INDIC ATED, ALL TESTING PER FORMED AT [facility]. [address] [place] [address] [employer] DIRECTOR: ELIZABETH MILLER M.D. C MYKE NUMBER [id number] CAP ACCREDITATION N O. [id number] TSH, THIRD [id number] 06:11:47 Test Item Value Reference Range Interpretation Comments TSH, THIRD >100.000 0.400-4.100 H CPL has GENERATION (test UIU/ML important p athology code = 2821) staff changes effective 07/01. New patholo gy staff will prov lisa uninterrupted, excellent patie nt care and clinic al consultation. S ee URL: [email or web address]. UNLE SS OTHERWISE INDIC ATED, ALL TESTING PER FORMED AT [facility]. [address] [place] [address] [employer] DIRECTOR: LATOYA MCCALL M.D. CLIA NUMBER [id number] CAP ACCREDITATION N O. [id number] LIPID [id number] 03:11:34 Test Item Value Reference Range Interpretation [...] MOREINFORMATION , SEE CLIENT ANNOUNCE MENT AT [email or web address] RISK RATIO LDL/HDL 1.58 RATIO <3.55 (test code = 2238) TSH, THIRD [id number] 06:32:46 Test Item Value Reference Range Interpretation Comments TSH, THIRD GENERATION (test >100.000 UIU/ML 0.400-4.100 H code = 2821) PSA, [id number] 06:32:46 Test Item Value Reference Range Interpretation Comments PSA, TOTAL 0.57 NG/ML See_Comment NOTE: Methodol ogy is Ezio (test code = Radhika Electroch emiluminescence 2606) Immunoassay tra ceable to WHO reference stand rea 96/760. UNLESS OTHERWIS E INDICATED, ALL TESTING PERFORM ED ATCLINICAL PATHOLOGY LCO [facility]. [address] [place] [address] LABORATORY DIRE CTOR: LATOYA MCCALL M.D. CLIA NUMBER [id number] [place]. [id number] [A utomated message] The sy stem which generated this result transmitted ref erence range: <=4.00. The ref erence range was not used to int erpret this result as ryne l/abnormal. COMPREHENSIVE METABOLIC [id number] 04:57:27 Test Item Value Reference Range Interpretation Comments GLUCOSE (test code = 204 MG/DL 70-99 H 2216) BUN (test code = 17 MG/DL 6-20 2207) CREATININE (test 5.58 MG/DL 0.80-1.40 H code = 2214) eGFR (2020 CKD-EPI) 11 ML/MIN/1.73 >60 L (test code = 09471) CALC BUN/CREAT (test 3 RATIO 6-28 L code = 2235) SODIUM (test code = 143 MEQ/L 131-659 0961) POTASSIUM (test code 3.8 MEQ/L 3.5-5.4 = [...] code = 15 U/L 5-50 2218) HEMOGLOBIN [id number] 03:24:27 Test Item Value Reference Range Interpretation Comments HEMOGLOBIN A1c (test code = 51440) 5.8 % 4.2-5.6 H CBC W/AUTO DIFF WITH [id number] 03:19:43 Test Item Value Reference Range Interpretation [...] RBCS 0.00 K/UL 0.00-0.11 (test code = 03789) CBC W/AUTO [id number] 00:00:00 Test Item Value Reference Range Interpretation [...] NUCLEATED RBCS (test code = 0.00 K/UL 14779) CBC W/AUTO [id number] 00:00:00 Test Item Value Reference Range Interpretation [...] NUCLEATED RBCS (test code = 0.00 K/UL 99908) CBC W/AUTO [id number] 00:00:00 Test Item Value Reference Range Interpretation [...] NUCLEATED RBCS (test code = 0.00 K/UL 20427) HEMOGLOBIN [id number] 00:00:00 Test Item Value Reference Range Interpretation Comments HEMOGLOBIN A1c (test code = 70623) 5.8 % HEMOGLOBIN [id number] 00:00:00 Test Item Value Reference Range Interpretation Comments HEMOGLOBIN A1c (test code = 72971) 5.8 % HEMOGLOBIN [id number] 00:00:00 Test Item Value Reference Range Interpretation Comments HEMOGLOBIN A1c (test code = 79084) 5.8 % COMPREHENSIVE METABOLIC [id number] 00:00:00 Test Item Value Reference Range Interpretation Comments GLUCOSE (test code = 2217) 204 MG/DL BUN (test code = 2208) 17 MG/DL CREATININE (test code = 2214) 5.58 MG/DL eGFR (2020 CKD-EPI) (test code 11 ML/MIN/1.73 = 49730) CALC BUN/CREAT (test code = 3 RATIO [...] code = 2219) 15 U/L COMPREHENSIVE METABOLIC [id number] 00:00:00 Test Item Value Reference Range Interpretation Comments GLUCOSE (test code = 2217) 204 MG/DL BUN (test code = 2208) 17 MG/DL CREATININE (test code = 2214) 5.58 MG/DL eGFR (2020 CKD-EPI) (test code 11 ML/MIN/1.73 = 49136) CALC BUN/CREAT (test code = 3 RATIO [...] code = 2219) 15 U/L TSH, THIRD [id number] 00:00:00 Test Item Value Reference Range Interpretation Comments TSH, THIRD GENERATION (test >100.000 UIU/ML code = 2821) TSH, THIRD [id number] 00:00:00 Test Item Value Reference Range Interpretation Comments TSH, THIRD GENERATION (test >100.000 UIU/ML code = 2821) TSH, THIRD [id number] 00:00:00 Test Item Value Reference Range Interpretation Comments TSH, THIRD GENERATION (test >100.000 UIU/ML code = 2821) PSA, [id number] 00:00:00 Test Item Value Reference Range Interpretation Comments PSA, TOTAL (test code = 2606) 0.57 NG/ML PSA, [id number] 00:00:00 Test Item Value Reference Range Interpretation Comments PSA, TOTAL (test code = 2606) 0.57 NG/ML PSA, [id number] 00:00:00 Test Item Value Reference Range Interpretation Comments PSA, TOTAL (test code = 2606) 0.57 NG/ML - CT ABD PELVIS W/O [id number] 17:19:00 [facility] 1965 Sex: M Name: MEHRDAD RAMIREZ [facility] : 1965 Age/S: 56 / M [address] [place] Unit #:[id number] Loc: [place] [address] Phys: Jacinto Simpson MD Acct: [id number] Dis Date: Status: REG REF PHONE #: [phone] Exam Date: 04/16/2022 1708 FAX #: Reason: RESP FAILURE EXAMS: CPT: [id number] CT ABD PELVIS W/O CONT 78392 CT abdomen and pelvis without contrast: HISTORY: End-stage renal disease on hemodialysis GI bleed TECHNIQUE: Axial images of the abdomen and pelvis are obtained on the multidetector CT. The study is performed without [...] liver is homogeneous, free of focal masses and dilated intrahepatic ducts. The gallbladder is unremarkable. The spleen is normal in size and contour. The stomach and duodenum appear unremarkable. The pancreas is morphologically normal. No mass, pancreatic duct dilatation or peripancreatic edema is visible. The adrenal glands are normal in size and contour. The kidneys are normal in size and contour. Multiple small right renal cysts are identified.The dominant cyst measures 1.5 cm. No renal calculi are depicted. No hydronephrosis, perinephric fluid or perinephric stranding. No pathologic ureteral dilatation. The urinary bladder is unremarkable. No retroperitoneal lymphadenopathy is observed. The abdominal aorta is normal in caliber. No evidenceof abdominal aortic aneurysm. The visualized bowel is unremarkable. Numerous sigmoid colonic diverticula are present. There is no pericolic inflammation. No PAGE 1 Signed Report (CONTINUED) Name: MEHRDAD RAMIREZ [facility] : 1965 Age/S: 56 / M [address] [place] Unit #: [id number] Loc: [place] [address] Phys: Jacinto Simpson MD Acct: [id number] Dis Date: Status: REG REF PHONE #: [phone] Exam Date: 04/16/2022 1705 FAX #: Reason: RESP FAILURE EXAMS: CPT: [id number] CTABD PELVIS W/O CONT 10759 (Continued) evidence of ascites. Abdominal wall is intact. No significantbony lesions. IMPRESSION: 1. No acute finding is seen in the abdomen the pelvis. 2. Left colonic diverticulosis. 3. Normal appendix seen. 4. Multiple small right renal cysts are present. These requireno additional follow-up. at 3066 Reported and signed by: José Luis Escobar M.D. CC: Jacinto Pearson MD Technologist:Moreno Alvarez, RT(R) CTDI: DLP: Trnscb Date/Time: 04/16/2022 (171) t.[email or web address] Orig Print D/T: S: 04/16/2022 (4020) PAGE 2 Signed ReportC W/AUTO [id number] 05:14:00 Test Item Value Reference Range Interpretation [...] DIFF REQUIRED NO DIFF/SCN CRITERIA SLIDE R EVIEW (test code = MDIFF) CONSISTA NT WITH AUTO DIFFERENTI AL. BASIC METABOLIC [id number] 03:59:00 Test Item Value Reference Range Interpretation [...] for maria del carmen for GFRby the [facility].The GFR will not calculate i f the sex is unknown or if thepatient's ag e is <18 years. CREATININE (test 12.3 MG/DL 0.8-1.3 H code = CREAT) CALCIUM (test code 7.6 MG/DL 8.5-10.1 L = CA) CBC W/AUTO DIFF WITH [id number] 09:42:23 Test Item Value Reference Range Interpretation [...] RBCS 0.00 K/UL 0.00-0.11 (test code = 84889) HEMOGLOBIN [id number] 09:27:39 Test Item Value Reference Range Interpretation Comments HEMOGLOBIN A1c (test code = 42573) 6.2 % 4.2-5.6 H TSH, THIRD [id number] 06:43:39 Test Item Value Reference Range Interpretation Comments TSH, THIRD GENERATION (test 82.000 UIU/ML 0.400-4.100 H code = 2821) HIV 1/2 4TH GEN, RFLX [id number] 05:21:13 Test Item Value Reference Range Interpretation Comments HIV 1/2 4TH GEN, RFLX CONF (test NON-REACTIVE NON-REACTIVE code = 3514) HEPATITIS PANEL, [id number] 05:21:13 Test Item Value Reference Range Interpretation Comments HEPATITIS A IgM (test NON-REACTIVE NON-REACTIVE code = 35205) HEPATITIS B CORE IgM NON-REACTIVE NON-REACTIVE (test code = 4644) HEPATITIS B SURF AG NON-REACTIVE NON-REACTIVE (test code = 2739) HEPATITIS C ANTIBODY NON-REACTIVE NON-REACTIVE (test code = 4675) INTERPRETATION (NOTE) Hepatitis A HEPATITIS A: (test serology shows no code = 2552) evidence of acu te hepatitis A. INTERPRETATION (NOTE) Hepatitis B HEPATITIS B: (test serology shows no code = 26227) evidence of ac lummi hepatitis B and no indication of exposure to hepatitis B vir us in the previous si xto eight months. INTERPRETATION (NOTE) Hepatitis C HEPATITIS C: (test serology shows no code = 35966) evidence of ex posure to hepatitisC v irus at this time. I t can take up to 12 m onths after exposure tothe hepatitis C vir us for antibodies to become detectab le in the blood in ce rtain patients. UNLES S OTHERWISE INDIC ATED, ALL TESTING PERFORMED [facility], [facility]. [address] [place] [address], [place] [id number] [place] [address] DIRECTOR: Chuckie FLORENCE NUMBER [id number] [place] [id number] LIPID [id number] 03:30:59 Test Item Value Reference Range Interpretation [...] MOREINFORMATION , SEE CLIENT ANNOUNCE MENT AT [email or web address] CalcLDL-C RISK RATIO LDL/HDL (NOTE) RATIO <3.55 UNABLE T O CALCULATE (test code = 223) COMPREHENSIVE METABOLIC [id number] 03:30:59 Test Item Value Reference Range Interpretation Comments GLUCOSE (test code = 117 MG/DL 70-99 H 2216) BUN (test code = 54 MG/DL 6-20 H 2207) CREATININE (test 11.27 MG/DL 0.80-1.40 H code = 221) eGFR (2020 CKD-EPI) 5 ML/MIN/1.73 >60 L (test code = 63884) CALC BUN/CREAT (test 5 RATIO 6-28 L code = 2235) SODIUM (test code = 139 MEQ/L 986-247 8291) POTASSIUM (test code 4.2 MEQ/L 3.5-5.4 = [...] syste m which generated this result transmit akiley reference range : <=1.2. The refe rence range was not u sed to interpret th is result as normal/abnormal . ALKALINE PHOSPHATASE 70 U/L 40-123 (test code = 2204) AST (test code = 6 U/L 9-50 L 2218) ALT (test code = 8 U/L 5-50 2219) CBC W/AUTO [id number] 00:00:00 Test Item Value Reference Range Interpretation [...] NUCLEATED RBCS (test code = 0.00 K/UL 86678) CBC W/AUTO [id number] 00:00:00 Test Item Value Reference Range Interpretation [...] NUCLEATED RBCS (test code = 0.00 K/UL 85057) CBC W/AUTO [id number] 00:00:00 Test Item Value Reference Range Interpretation [...] NUCLEATED RBCS (test code = 0.00 K/UL 26184) HEMOGLOBIN [id number] 00:00:00 Test Item Value Reference Range Interpretation Comments HEMOGLOBIN A1c (test code = 78835) 6.2 % HEMOGLOBIN [id number] 00:00:00 Test Item Value Reference Range Interpretation Comments HEMOGLOBIN A1c (test code = 93920) 6.2 % HEMOGLOBIN [id number] 00:00:00 Test Item Value Reference Range Interpretation Comments HEMOGLOBIN A1c (test code = 79328) 6.2 % LIPID [id number] 00:00:00 Test Item Value Reference Range Interpretation Comments CHOLESTEROL (test code = 2210) 196 MG/DL TRIGLYCERIDES (test code = 2232) 486 MG/DL HDL CHOLESTEROL (test code = 44 MG/DL 2220) CALC LDL CHOL (test code = 2237) (NOTE) MG/DL RISK RATIO LDL/HDL (test code = (NOTE) RATIO 2238) LIPID [id number] 00:00:00 Test Item Value Reference Range Interpretation Comments CHOLESTEROL (test code = 2210) 196 MG/DL TRIGLYCERIDES (test code = 2232) 486 MG/DL HDL CHOLESTEROL (test code = 44 MG/DL 2220) CALC LDL CHOL (test code = 2237) (NOTE) MG/DL RISK RATIO LDL/HDL (test code = (NOTE) RATIO 2238) COMPREHENSIVE METABOLIC [id number] 00:00:00 Test Item Value Reference Range Interpretation Comments GLUCOSE (test code = 2217) 117 MG/DL BUN (test code = 2208) 54 MG/DL CREATININE (test code = 2214) 11.27 MG/DL eGFR (2020 CKD-EPI) (test code 5 ML/MIN/1.73 = 85451) CALC BUN/CREAT (test code = 5 RATIO [...] code = 2219) 8 U/L COMPREHENSIVE METABOLIC [id number] 00:00:00 Test Item Value Reference Range Interpretation Comments GLUCOSE (test code = 2217) 117 MG/DL BUN (test code = 2208) 54 MG/DL CREATININE (test code = 2214) 11.27 MG/DL eGFR (2020 CKD-EPI) (test code 5 ML/MIN/1.73 = 00173) CALC BUN/CREAT (test code = 5 RATIO [...] ALT (test code = 2219) 8 U/L [id number] 00:00:00 Test Item Value Reference Range Interpretation Comments TSH, THIRD GENERATION (test 82.000 UIU/ML code = 2821) [id number] 00:00:00 Test Item Value Reference Range Interpretation Comments TSH, THIRD GENERATION (test 82.000 UIU/ML code = 2821) [id number] 00:00:00 Test Item Value Reference Range Interpretation Comments TSH, THIRD GENERATION (test 82.000 UIU/ML code = 2821) HIV AB/AG COMBO RFLX [id number] 00:00:00 Test Item Value Reference Range Interpretation Comments HIV 1/2 4TH GEN, RFLX CONF (test NON-REACTIVE code = 3514) HIV AB/AG COMBO RFLX [id number] 00:00:00 Test Item Value Reference Range Interpretation Comments HIV 1/2 4TH GEN, RFLX CONF (test NON-REACTIVE code = 3514) ACUTE HEPATITIS [id number] 00:00:00 Test Item Value Reference Range Interpretation Comments HEPATITIS A IgM (test code = NON-REACTIVE 45982) HEPATITIS B CORE IgM (test code NON-REACTIVE = 4644) HEPATITIS B SURF AG (test code = NON-REACTIVE 2739) HEPATITIS C ANTIBODY (test code NON-REACTIVE = 4675) INTERPRETATION HEPATITIS A: (NOTE) (test code = 2552) INTERPRETATION HEPATITIS B: (NOTE) (test code = 84945) INTERPRETATION HEPATITIS C: (NOTE) (test code = 61509) ACUTE HEPATITIS [id number] 00:00:00 Test Item Value Reference Range Interpretation Comments HEPATITIS A IgM (test code = NON-REACTIVE 68607) HEPATITIS B CORE IgM (test code NON-REACTIVE = 4644) HEPATITIS B SURF AG (test code = NON-REACTIVE 2739) HEPATITIS C ANTIBODY (test code NON-REACTIVE = 4675) INTERPRETATION HEPATITIS A: (NOTE) (test code = 2552) INTERPRETATION HEPATITIS B: (NOTE) (test code = 87930) INTERPRETATION HEPATITIS C: (NOTE) (test code = 96145) CBC W/AUTO [id number] 00:00:00 Test Item Value Reference Range Interpretation [...] NUCLEATED RBCS (test code = 0.00 K/UL 18079) CBC W/AUTO [id number] 00:00:00 Test Item Value Reference Range Interpretation [...] NUCLEATED RBCS (test code = 0.00 K/UL 87985) CBC W/AUTO [id number] 00:00:00 Test Item Value Reference Range Interpretation [...] NUCLEATED RBCS (test code = 0.00 K/UL 43235) HEMOGLOBIN [id number] 00:00:00 Test Item Value Reference Range Interpretation Comments HEMOGLOBIN A1c (test code = 40657) 6.2 % HEMOGLOBIN [id number] 00:00:00 Test Item Value Reference Range Interpretation Comments HEMOGLOBIN A1c (test code = 02116) 6.2 % HEMOGLOBIN [id number] 00:00:00 Test Item Value Reference Range Interpretation Comments HEMOGLOBIN A1c (test code = 47039) 6.2 % LIPID [id number] 00:00:00 Test Item Value Reference Range Interpretation Comments CHOLESTEROL (test code = 2210) 196 MG/DL TRIGLYCERIDES (test code = 2232) 486 MG/DL HDL CHOLESTEROL (test code = 44 MG/DL 2220) CALC LDL CHOL (test code = 2237) (NOTE) MG/DL RISK RATIO LDL/HDL (test code = (NOTE) RATIO 2238) LIPID [id number] 00:00:00 Test Item Value Reference Range Interpretation Comments CHOLESTEROL (test code = 2210) 196 MG/DL TRIGLYCERIDES (test code = 2232) 486 MG/DL HDL CHOLESTEROL (test code = 44 MG/DL 2220) CALC LDL CHOL (test code = 2237) (NOTE) MG/DL RISK RATIO LDL/HDL (test code = (NOTE) RATIO 2238) COMPREHENSIVE METABOLIC [id number] 00:00:00 Test Item Value Reference Range Interpretation Comments GLUCOSE (test code = 2217) 117 MG/DL BUN (test code = 2208) 54 MG/DL CREATININE (test code = 2214) 11.27 MG/DL eGFR (2020 CKD-EPI) (test code 5 ML/MIN/1.73 = 80690) CALC BUN/CREAT (test code = 5 RATIO [...] code = 2219) 8 U/L COMPREHENSIVE METABOLIC [id number] 00:00:00 Test Item Value Reference Range Interpretation Comments GLUCOSE (test code = 2217) 117 MG/DL BUN (test code = 2208) 54 MG/DL CREATININE (test code = 2214) 11.27 MG/DL eGFR (2020 CKD-EPI) (test code 5 ML/MIN/1.73 = 69446) CALC BUN/CREAT (test code = 5 RATIO [...] ALT (test code = 2219) 8 U/L [id number] 00:00:00 Test Item Value Reference Range Interpretation Comments TSH, THIRD GENERATION (test 82.000 UIU/ML code = 2821) [id number] 00:00:00 Test Item Value Reference Range Interpretation Comments TSH, THIRD GENERATION (test 82.000 UIU/ML code = 2821) [id number] 00:00:00 Test Item Value Reference Range Interpretation Comments TSH, THIRD GENERATION (test 82.000 UIU/ML code = 2821) HIV AB/AG COMBO RFLX [id number] 00:00:00 Test Item Value Reference Range Interpretation Comments HIV 1/2 4TH GEN, RFLX CONF (test NON-REACTIVE code = 3514) HIV AB/AG COMBO RFLX [id number] 00:00:00 Test Item Value Reference Range Interpretation Comments HIV 1/2 4TH GEN, RFLX CONF (test NON-REACTIVE code = 3514) ACUTE HEPATITIS [id number] 00:00:00 Test Item Value Reference Range Interpretation Comments HEPATITIS A IgM (test code = NON-REACTIVE 45414) HEPATITIS B CORE IgM (test code NON-REACTIVE = 4644) HEPATITIS B SURF AG (test code = NON-REACTIVE 6559) HEPATITIS C ANTIBODY (test code NON-REACTIVE = 4675) INTERPRETATION HEPATITIS A: (NOTE) (test code = 2552) INTERPRETATION HEPATITIS B: (NOTE) (test code = 75745) INTERPRETATION HEPATITIS C: (NOTE) (test code = 33780) ACUTE HEPATITIS [id number] 00:00:00 Test Item Value Reference Range Interpretation Comments HEPATITIS A IgM (test code = NON-REACTIVE 45436) HEPATITIS B CORE IgM (test code NON-REACTIVE = 4644) HEPATITIS B SURF AG (test code = NON-REACTIVE 0949) HEPATITIS C ANTIBODY (test code NON-REACTIVE = 4653) INTERPRETATION HEPATITIS A: (NOTE) (test code = 2552) INTERPRETATION HEPATITIS B: (NOTE) (test code = 67963) INTERPRETATION HEPATITIS C: (NOTE) (test code = 66703) CBC W/AUTO [id number] 00:00:00 Test Item Value Reference Range Interpretation [...] NUCLEATED RBCS (test code = 0.00 K/UL 32143) CBC W/AUTO [id number] 00:00:00 Test Item Value Reference Range Interpretation [...] NUCLEATED RBCS (test code = 0.00 K/UL 64174) CBC W/AUTO [id number] 00:00:00 Test Item Value Reference Range Interpretation [...] NUCLEATED RBCS (test code = 0.00 K/UL 25603) CBC W/AUTO [id number] 00:00:00 Test Item Value Reference Range Interpretation [...] NUCLEATED RBCS (test code = 0.00 K/UL 73406) CBC W/AUTO [id number] 00:00:00 Test Item Value Reference Range Interpretation [...] NUCLEATED RBCS (test code = 0.00 K/UL 49377) HEMOGLOBIN [id number] 00:00:00 Test Item Value Reference Range Interpretation Comments HEMOGLOBIN A1c (test code = 60396) 6.2 % HEMOGLOBIN [id number] 00:00:00 Test Item Value Reference Range Interpretation Comments HEMOGLOBIN A1c (test code = 25074) 6.2 % HEMOGLOBIN [id number] 00:00:00 Test Item Value Reference Range Interpretation Comments HEMOGLOBIN A1c (test code = 07955) 6.2 % LIPID [id number] 00:00:00 Test Item Value Reference Range Interpretation Comments CHOLESTEROL (test code = 2210) 196 MG/DL TRIGLYCERIDES (test code = 2232) 486 MG/DL HDL CHOLESTEROL (test code = 44 MG/DL 2220) CALC LDL CHOL (test code = 2237) (NOTE) MG/DL RISK RATIO LDL/HDL (test code = (NOTE) RATIO 2238) LIPID [id number] 00:00:00 Test Item Value Reference Range Interpretation Comments CHOLESTEROL (test code = 2210) 196 MG/DL TRIGLYCERIDES (test code = 2232) 486 MG/DL HDL CHOLESTEROL (test code = 44 MG/DL 0) CALC LDL CHOL (test code = 2237) (NOTE) MG/DL RISK RATIO LDL/HDL (test code = (NOTE) RATIO 2238) COMPREHENSIVE METABOLIC [id number] 00:00:00 Test Item Value Reference Range Interpretation Comments GLUCOSE (test code = 2217) 117 MG/DL BUN (test code = 2208) 54 MG/DL CREATININE (test code = 2214) 11.27 MG/DL eGFR (2020 CKD-EPI) (test code 5 ML/MIN/1.73 = 82231) CALC BUN/CREAT (test code = 5 RATIO [...] code = 2219) 8 U/L COMPREHENSIVE METABOLIC [id number] 00:00:00 Test Item Value Reference Range Interpretation Comments GLUCOSE (test code = 2217) 117 MG/DL BUN (test code = 2208) 54 MG/DL CREATININE (test code = 2214) 11.27 MG/DL eGFR (2020 CKD-EPI) (test code 5 ML/MIN/1.73 = 23171) CALC BUN/CREAT (test code = 5 RATIO [...] ALT (test code = 2219) 8 U/L [id number] 00:00:00 Test Item Value Reference Range Interpretation Comments TSH, THIRD GENERATION (test 82.000 UIU/ML code = 2821) [id number] 00:00:00 Test Item Value Reference Range Interpretation Comments TSH, THIRD GENERATION (test 82.000 UIU/ML code = 2821) [id number] 00:00:00 Test Item Value Reference Range Interpretation Comments TSH, THIRD GENERATION (test 82.000 UIU/ML code = 2821) HIV AB/AG COMBO RFLX [id number] 00:00:00 Test Item Value Reference Range Interpretation Comments HIV 1/2 4TH GEN, RFLX CONF (test NON-REACTIVE code = 3514) HIV AB/AG COMBO RFLX [id number] 00:00:00 Test Item Value Reference Range Interpretation Comments HIV 1/2 4TH GEN, RFLX CONF (test NON-REACTIVE code = 3514) ACUTE HEPATITIS [id number] 00:00:00 Test Item Value Reference Range Interpretation Comments HEPATITIS A IgM (test code = NON-REACTIVE 65115) HEPATITIS B CORE IgM (test code NON-REACTIVE = 4644) HEPATITIS B SURF AG (test code = NON-REACTIVE 2739) HEPATITIS C ANTIBODY (test code NON-REACTIVE = 4675) INTERPRETATION HEPATITIS A: (NOTE) (test code = 2552) INTERPRETATION HEPATITIS B: (NOTE) (test code = 80344) INTERPRETATION HEPATITIS C: (NOTE) (test code = 56707) ACUTE HEPATITIS [id number] 00:00:00 Test Item Value Reference Range Interpretation Comments HEPATITIS A IgM (test code = NON-REACTIVE 27528) HEPATITIS B CORE IgM (test code NON-REACTIVE = 4644) HEPATITIS B SURF AG (test code = NON-REACTIVE 2739) HEPATITIS C ANTIBODY (test code NON-REACTIVE = 4675) INTERPRETATION HEPATITIS A: (NOTE) (test code = 2552) INTERPRETATION HEPATITIS B: (NOTE) (test code = 50339) INTERPRETATION HEPATITIS C: (NOTE) (test code = 51972) HEMOGLOBIN [id number] 00:00:00 Test Item Value Reference Range Interpretation Comments HEMOGLOBIN A1c (test code = 53518) 6.2 % HEMOGLOBIN [id number] 00:00:00 Test Item Value Reference Range Interpretation Comments HEMOGLOBIN A1c (test code = 10798) 6.2 % LIPID [id number] 00:00:00 Test Item Value Reference Range Interpretation Comments CHOLESTEROL (test code = 2210) 196 MG/DL TRIGLYCERIDES (test code = 2232) 486 MG/DL HDL CHOLESTEROL (test code = 44 MG/DL 2219) CALC LDL CHOL (test code = 2237) (NOTE) MG/DL RISK RATIO LDL/HDL (test code = (NOTE) RATIO 2238) COMPREHENSIVE METABOLIC [id number] 00:00:00 Test Item Value Reference Range Interpretation Comments GLUCOSE (test code = 2217) 117 MG/DL BUN (test code = 2208) 54 MG/DL CREATININE (test code = 2214) 11.27 MG/DL eGFR (2020 CKD-EPI) (test code 5 ML/MIN/1.73 = 71205) CALC BUN/CREAT (test code = 5 RATIO [...] code = 2219) 8 U/L CBC W/AUTO [id number] 00:00:00 Test Item Value Reference Range Interpretation [...] NUCLEATED RBCS (test code = 0.00 K/UL 45038) CBC W/AUTO [id number] 00:00:00 Test Item Value Reference Range Interpretation [...] NUCLEATED RBCS (test code = 0.00 K/UL 54068) CBC W/AUTO [id number] 00:00:00 Test Item Value Reference Range Interpretation [...] NUCLEATED RBCS (test code = 0.00 K/UL 36621) [id number] 00:00:00 Test Item Value Reference Range Interpretation Comments TSH, THIRD GENERATION (test 82.000 UIU/ML code = 2821) HEMOGLOBIN [id number] 00:00:00 Test Item Value Reference Range Interpretation Comments HEMOGLOBIN A1c (test code = 01362) 6.2 % HEMOGLOBIN [id number] 00:00:00 Test Item Value Reference Range Interpretation Comments HEMOGLOBIN A1c (test code = 99863) 6.2 % [id number] 00:00:00 Test Item Value Reference Range Interpretation Comments TSH, THIRD GENERATION (test 82.000 UIU/ML code = 2821) HEMOGLOBIN [id number] 00:00:00 Test Item Value Reference Range Interpretation Comments HEMOGLOBIN A1c (test code = 58794) 6.2 % HIV AB/AG COMBO RFLX [id number] 00:00:00 Test Item Value Reference Range Interpretation Comments HIV 1/2 4TH GEN, RFLX CONF (test NON-REACTIVE code = 3514) LIPID [id number] 00:00:00 Test Item Value Reference Range Interpretation Comments CHOLESTEROL (test code = 2210) 196 MG/DL TRIGLYCERIDES (test code = 2232) 486 MG/DL HDL CHOLESTEROL (test code = 44 MG/DL 2220) CALC LDL CHOL (test code = 2237) (NOTE) MG/DL RISK RATIO LDL/HDL (test code = (NOTE) RATIO 2238) LIPID [id number] 00:00:00 Test Item Value Reference Range Interpretation Comments CHOLESTEROL (test code = 2210) 196 MG/DL TRIGLYCERIDES (test code = 2232) 486 MG/DL HDL CHOLESTEROL (test code = 44 MG/DL 2220) CALC LDL CHOL (test code = 2237) (NOTE) MG/DL RISK RATIO LDL/HDL (test code = (NOTE) RATIO 2238) ACUTE HEPATITIS [id number] 00:00:00 Test Item Value Reference Range Interpretation Comments HEPATITIS A IgM (test code = NON-REACTIVE 18574) HEPATITIS B CORE IgM (test code NON-REACTIVE = 0044) HEPATITIS B SURF AG (test code = NON-REACTIVE 9) HEPATITIS C ANTIBODY (test code NON-REACTIVE = 4642) INTERPRETATION HEPATITIS A: (NOTE) (test code = 2552) INTERPRETATION HEPATITIS B: (NOTE) (test code = 46641) INTERPRETATION HEPATITIS C: (NOTE) (test code = 60811) COMPREHENSIVE METABOLIC [id number] 00:00:00 Test Item Value Reference Range Interpretation Comments GLUCOSE (test code = 2217) 117 MG/DL BUN (test code = 2208) 54 MG/DL CREATININE (test code = 2214) 11.27 MG/DL eGFR (2020 CKD-EPI) (test code 5 ML/MIN/1.73 = 36201) CALC BUN/CREAT (test code = 5 RATIO [...] code = 2219) 8 U/L COMPREHENSIVE METABOLIC [id number] 00:00:00 Test Item Value Reference Range Interpretation Comments GLUCOSE (test code = 2217) 117 MG/DL BUN (test code = 2208) 54 MG/DL CREATININE (test code = 2214) 11.27 MG/DL eGFR (2020 CKD-EPI) (test code 5 ML/MIN/1.73 = 25835) CALC BUN/CREAT (test code = 5 RATIO [...] ALT (test code = 2219) 8 U/L [id number] 00:00:00 Test Item Value Reference Range Interpretation Comments TSH, THIRD GENERATION (test 82.000 UIU/ML code = 2821) [id number] 00:00:00 Test Item Value Reference Range Interpretation Comments TSH, THIRD GENERATION (test 82.000 UIU/ML code = 2821) [id number] 00:00:00 Test Item Value Reference Range Interpretation Comments TSH, THIRD GENERATION (test 82.000 UIU/ML code = 2821) HIV AB/AG COMBO RFLX [id number] 00:00:00 Test Item Value Reference Range Interpretation Comments HIV 1/2 4TH GEN, RFLX CONF (test NON-REACTIVE code = 3514) HIV AB/AG COMBO RFLX [id number] 00:00:00 Test Item Value Reference Range Interpretation Comments HIV 1/2 4TH GEN, RFLX CONF (test NON-REACTIVE code = 3514) ACUTE HEPATITIS [id number] 00:00:00 Test Item Value Reference Range Interpretation Comments HEPATITIS A IgM (test code = NON-REACTIVE 61334) HEPATITIS B CORE IgM (test code NON-REACTIVE = 4644) HEPATITIS B SURF AG (test code = NON-REACTIVE 2739) HEPATITIS C ANTIBODY (test code NON-REACTIVE = 4675) INTERPRETATION HEPATITIS A: (NOTE) (test code = 2552) INTERPRETATION HEPATITIS B: (NOTE) (test code = 59696) INTERPRETATION HEPATITIS C: (NOTE) (test code = 86842) ACUTE HEPATITIS [id number] 00:00:00 Test Item Value Reference Range Interpretation Comments HEPATITIS A IgM (test code = NON-REACTIVE 47925) HEPATITIS B CORE IgM (test code NON-REACTIVE = 4644) HEPATITIS B SURF AG (test code = NON-REACTIVE 2739) HEPATITIS C ANTIBODY (test code NON-REACTIVE = 4675) INTERPRETATION HEPATITIS A: (NOTE) (test code = 2552) INTERPRETATION HEPATITIS B: (NOTE) (test code = 20241) INTERPRETATION HEPATITIS C: (NOTE) (test code = 60597) CBC W/AUTO [id number] 00:00:00 Test Item Value Reference Range Interpretation [...] NUCLEATED RBCS (test code = 0.00 K/UL 65823) CBC W/AUTO [id number] 00:00:00 Test Item Value Reference Range Interpretation [...] NUCLEATED RBCS (test code = 0.00 K/UL 73556) CBC W/AUTO [id number] 00:00:00 Test Item Value Reference Range Interpretation [...] NUCLEATED RBCS (test code = 0.00 K/UL 48414) HEMOGLOBIN [id number] 00:00:00 Test Item Value Reference Range Interpretation Comments HEMOGLOBIN A1c (test code = 75871) 6.2 % HEMOGLOBIN [id number] 00:00:00 Test Item Value Reference Range Interpretation Comments HEMOGLOBIN A1c (test code = 26619) 6.2 % HEMOGLOBIN [id number] 00:00:00 Test Item Value Reference Range Interpretation Comments HEMOGLOBIN A1c (test code = 91429) 6.2 % LIPID [id number] 00:00:00 Test Item Value Reference Range Interpretation Comments CHOLESTEROL (test code = 2210) 196 MG/DL TRIGLYCERIDES (test code = 2232) 486 MG/DL HDL CHOLESTEROL (test code = 44 MG/DL 2220) CALC LDL CHOL (test code = 2237) (NOTE) MG/DL RISK RATIO LDL/HDL (test code = (NOTE) RATIO 2238) LIPID [id number] 00:00:00 Test Item Value Reference Range Interpretation Comments CHOLESTEROL (test code = 2210) 196 MG/DL TRIGLYCERIDES (test code = 2232) 486 MG/DL HDL CHOLESTEROL (test code = 44 MG/DL 2220) CALC LDL CHOL (test code = 2237) (NOTE) MG/DL RISK RATIO LDL/HDL (test code = (NOTE) RATIO 2238) COMPREHENSIVE METABOLIC [id number] 00:00:00 Test Item Value Reference Range Interpretation Comments GLUCOSE (test code = 2217) 117 MG/DL BUN (test code = 2208) 54 MG/DL CREATININE (test code = 2214) 11.27 MG/DL eGFR (2020 CKD-EPI) (test code 5 ML/MIN/1.73 = 53924) CALC BUN/CREAT (test code = 5 RATIO [...] code = 2219) 8 U/L COMPREHENSIVE METABOLIC [id number] 00:00:00 Test Item Value Reference Range Interpretation Comments GLUCOSE (test code = 2217) 117 MG/DL BUN (test code = 2208) 54 MG/DL CREATININE (test code = 2214) 11.27 MG/DL eGFR (2020 CKD-EPI) (test code 5 ML/MIN/1.73 = 75774) CALC BUN/CREAT (test code = 5 RATIO [...] ALT (test code = 2219) 8 U/L [id number] 00:00:00 Test Item Value Reference Range Interpretation Comments TSH, THIRD GENERATION (test 82.000 UIU/ML code = 2821) [id number] 00:00:00 Test Item Value Reference Range Interpretation Comments TSH, THIRD GENERATION (test 82.000 UIU/ML code = 2821) [id number] 00:00:00 Test Item Value Reference Range Interpretation Comments TSH, THIRD GENERATION (test 82.000 UIU/ML code = 2821) HIV AB/AG COMBO RFLX [id number] 00:00:00 Test Item Value Reference Range Interpretation Comments HIV 1/2 4TH GEN, RFLX CONF (test NON-REACTIVE code = 3514) HIV AB/AG COMBO RFLX [id number] 00:00:00 Test Item Value Reference Range Interpretation Comments HIV 1/2 4TH GEN, RFLX CONF (test NON-REACTIVE code = 3514) ACUTE HEPATITIS [id number] 00:00:00 Test Item Value Reference Range Interpretation Comments HEPATITIS A IgM (test code = NON-REACTIVE 96178) HEPATITIS B CORE IgM (test code NON-REACTIVE = 4644) HEPATITIS B SURF AG (test code = NON-REACTIVE 2739) HEPATITIS C ANTIBODY (test code NON-REACTIVE = 4675) INTERPRETATION HEPATITIS A: (NOTE) (test code = 2552) INTERPRETATION HEPATITIS B: (NOTE) (test code = 93108) INTERPRETATION HEPATITIS C: (NOTE) (test code = 98795) ACUTE HEPATITIS [id number] 00:00:00 Test Item Value Reference Range Interpretation Comments HEPATITIS A IgM (test code = NON-REACTIVE 48624) HEPATITIS B CORE IgM (test code NON-REACTIVE = 4644) HEPATITIS B SURF AG (test code = NON-REACTIVE 2739) HEPATITIS C ANTIBODY (test code NON-REACTIVE = 4675) INTERPRETATION HEPATITIS A: (NOTE) (test code = 2552) INTERPRETATION HEPATITIS B: (NOTE) (test code = 62930) INTERPRETATION HEPATITIS C: (NOTE) (test code = 79387) CBC W/AUTO [id number] 00:00:00 Test Item Value Reference Range Interpretation [...] NUCLEATED RBCS (test code = 0.00 K/UL 66012) CBC W/AUTO [id number] 00:00:00 Test Item Value Reference Range Interpretation [...] NUCLEATED RBCS (test code = 0.00 K/UL 33111) CBC W/AUTO [id number] 00:00:00 Test Item Value Reference Range Interpretation [...] NUCLEATED RBCS (test code = 0.00 K/UL 38114) HEMOGLOBIN [id number] 00:00:00 Test Item Value Reference Range Interpretation Comments HEMOGLOBIN A1c (test code = 03975) 6.2 % HEMOGLOBIN [id number] 00:00:00 Test Item Value Reference Range Interpretation Comments HEMOGLOBIN A1c (test code = 40736) 6.2 % HEMOGLOBIN [id number] 00:00:00 Test Item Value Reference Range Interpretation Comments HEMOGLOBIN A1c (test code = 95880) 6.2 % LIPID [id number] 00:00:00 Test Item Value Reference Range Interpretation Comments CHOLESTEROL (test code = 2210) 196 MG/DL TRIGLYCERIDES (test code = 2232) 486 MG/DL HDL CHOLESTEROL (test code = 44 MG/DL 2220) CALC LDL CHOL (test code = 2237) (NOTE) MG/DL RISK RATIO LDL/HDL (test code = (NOTE) RATIO 2238) LIPID [id number] 00:00:00 Test Item Value Reference Range Interpretation Comments CHOLESTEROL (test code = 2210) 196 MG/DL TRIGLYCERIDES (test code = 2232) 486 MG/DL HDL CHOLESTEROL (test code = 44 MG/DL 0) CALC LDL CHOL (test code = 2237) (NOTE) MG/DL RISK RATIO LDL/HDL (test code = (NOTE) RATIO 2238) COMPREHENSIVE METABOLIC [id number] 00:00:00 Test Item Value Reference Range Interpretation Comments GLUCOSE (test code = 2217) 117 MG/DL BUN (test code = 2208) 54 MG/DL CREATININE (test code = 2214) 11.27 MG/DL eGFR (2020 CKD-EPI) (test code 5 ML/MIN/1.73 = 40552) CALC BUN/CREAT (test code = 5 RATIO [...] code = 2219) 8 U/L COMPREHENSIVE METABOLIC [id number] 00:00:00 Test Item Value Reference Range Interpretation Comments GLUCOSE (test code = 2217) 117 MG/DL BUN (test code = 2208) 54 MG/DL CREATININE (test code = 2214) 11.27 MG/DL eGFR (2020 CKD-EPI) (test code 5 ML/MIN/1.73 = 62193) CALC BUN/CREAT (test code = 5 RATIO [...] ALT (test code = 2219) 8 U/L [id number] 00:00:00 Test Item Value Reference Range Interpretation Comments TSH, THIRD GENERATION (test 82.000 UIU/ML code = 2821) [id number] 00:00:00 Test Item Value Reference Range Interpretation Comments TSH, THIRD GENERATION (test 82.000 UIU/ML code = 2821) [id number] 00:00:00 Test Item Value Reference Range Interpretation Comments TSH, THIRD GENERATION (test 82.000 UIU/ML code = 2821) HIV AB/AG COMBO RFLX [id number] 00:00:00 Test Item Value Reference Range Interpretation Comments HIV 1/2 4TH GEN, RFLX CONF (test NON-REACTIVE code = 3514) HIV AB/AG COMBO RFLX [id number] 00:00:00 Test Item Value Reference Range Interpretation Comments HIV 1/2 4TH GEN, RFLX CONF (test NON-REACTIVE code = 3514) ACUTE HEPATITIS [id number] 00:00:00 Test Item Value Reference Range Interpretation Comments HEPATITIS A IgM (test code = NON-REACTIVE 11874) HEPATITIS B CORE IgM (test code NON-REACTIVE = 4644) HEPATITIS B SURF AG (test code = NON-REACTIVE 2739) HEPATITIS C ANTIBODY (test code NON-REACTIVE = 4675) INTERPRETATION HEPATITIS A: (NOTE) (test code = 2552) INTERPRETATION HEPATITIS B: (NOTE) (test code = 12079) INTERPRETATION HEPATITIS C: (NOTE) (test code = 24894) ACUTE HEPATITIS [id number] 00:00:00 Test Item Value Reference Range Interpretation Comments HEPATITIS A IgM (test code = NON-REACTIVE 45085) HEPATITIS B CORE IgM (test code NON-REACTIVE = 4644) HEPATITIS B SURF AG (test code = NON-REACTIVE 2739) HEPATITIS C ANTIBODY (test code NON-REACTIVE = 4675) INTERPRETATION HEPATITIS A: (NOTE) (test code = 2552) INTERPRETATION HEPATITIS B: (NOTE) (test code = 21515) INTERPRETATION HEPATITIS C: (NOTE) (test code = 74244) CBC W/AUTO [id number] 00:00:00 Test Item Value Reference Range Interpretation [...] NUCLEATED RBCS (test code = 0.00 K/UL 95367) CBC W/AUTO [id number] 00:00:00 Test Item Value Reference Range Interpretation [...] NUCLEATED RBCS (test code = 0.00 K/UL 55537) CBC W/AUTO [id number] 00:00:00 Test Item Value Reference Range Interpretation [...] NUCLEATED RBCS (test code = 0.00 K/UL 48821) HEMOGLOBIN [id number] 00:00:00 Test Item Value Reference Range Interpretation Comments HEMOGLOBIN A1c (test code = 07288) 6.2 % HEMOGLOBIN [id number] 00:00:00 Test Item Value Reference Range Interpretation Comments HEMOGLOBIN A1c (test code = 72691) 6.2 % HEMOGLOBIN [id number] 00:00:00 Test Item Value Reference Range Interpretation Comments HEMOGLOBIN A1c (test code = 92201) 6.2 % LIPID [id number] 00:00:00 Test Item Value Reference Range Interpretation Comments CHOLESTEROL (test code = 2210) 196 MG/DL TRIGLYCERIDES (test code = 2232) 486 MG/DL HDL CHOLESTEROL (test code = 44 MG/DL 2220) CALC LDL CHOL (test code = 2237) (NOTE) MG/DL RISK RATIO LDL/HDL (test code = (NOTE) RATIO 2238) LIPID [id number] 00:00:00 Test Item Value Reference Range Interpretation Comments CHOLESTEROL (test code = 2210) 196 MG/DL TRIGLYCERIDES (test code = 2232) 486 MG/DL HDL CHOLESTEROL (test code = 44 MG/DL 2220) CALC LDL CHOL (test code = 2237) (NOTE) MG/DL RISK RATIO LDL/HDL (test code = (NOTE) RATIO 2238) COMPREHENSIVE METABOLIC [id number] 00:00:00 Test Item Value Reference Range Interpretation Comments GLUCOSE (test code = 2217) 117 MG/DL BUN (test code = 2208) 54 MG/DL CREATININE (test code = 2214) 11.27 MG/DL eGFR (2020 CKD-EPI) (test code 5 ML/MIN/1.73 = 58703) CALC BUN/CREAT (test code = 5 RATIO [...] code = 2219) 8 U/L COMPREHENSIVE METABOLIC [id number] 00:00:00 Test Item Value Reference Range Interpretation Comments GLUCOSE (test code = 2217) 117 MG/DL BUN (test code = 2208) 54 MG/DL CREATININE (test code = 2214) 11.27 MG/DL eGFR (2020 CKD-EPI) (test code 5 ML/MIN/1.73 = 13779) CALC BUN/CREAT (test code = 5 RATIO [...] ALT (test code = 2219) 8 U/L [id number] 00:00:00 Test Item Value Reference Range Interpretation Comments TSH, THIRD GENERATION (test 82.000 UIU/ML code = 2821) [id number] 00:00:00 Test Item Value Reference Range Interpretation Comments TSH, THIRD GENERATION (test 82.000 UIU/ML code = 2821) [id number] 00:00:00 Test Item Value Reference Range Interpretation Comments TSH, THIRD GENERATION (test 82.000 UIU/ML code = 2821) HIV AB/AG COMBO RFLX [id number] 00:00:00 Test Item Value Reference Range Interpretation Comments HIV 1/2 4TH GEN, RFLX CONF (test NON-REACTIVE code = 3514) HIV AB/AG COMBO RFLX [id number] 00:00:00 Test Item Value Reference Range Interpretation Comments HIV 1/2 4TH GEN, RFLX CONF (test NON-REACTIVE code = 3514) ACUTE HEPATITIS [id number] 00:00:00 Test Item Value Reference Range Interpretation Comments HEPATITIS A IgM (test code = NON-REACTIVE 71610) HEPATITIS B CORE IgM (test code NON-REACTIVE = 4644) HEPATITIS B SURF AG (test code = NON-REACTIVE 2739) HEPATITIS C ANTIBODY (test code NON-REACTIVE = 4675) INTERPRETATION HEPATITIS A: (NOTE) (test code = 2552) INTERPRETATION HEPATITIS B: (NOTE) (test code = 63537) INTERPRETATION HEPATITIS C: (NOTE) (test code = 83343) ACUTE HEPATITIS [id number] 00:00:00 Test Item Value Reference Range Interpretation Comments HEPATITIS A IgM (test code = NON-REACTIVE 79583) HEPATITIS B CORE IgM (test code NON-REACTIVE = 4644) HEPATITIS B SURF AG (test code = NON-REACTIVE 2739) HEPATITIS C ANTIBODY (test code NON-REACTIVE = 4675) INTERPRETATION HEPATITIS A: (NOTE) (test code = 2552) INTERPRETATION HEPATITIS B: (NOTE) (test code = 47833) INTERPRETATION HEPATITIS C: (NOTE) (test code = 88491) TSH, THIRD [id number] 05:58:13 Test Item Value Reference Range Interpretation Comments TSH, THIRD 33.700 UIU/ML 0.400-4.100 H UNLESS OTHERW ISE GENERATION (test INDICATED, ALL code = 2821) TESTING PERFORM ED ATCLINICAL PATH Original, [facility]. [address] [place] [address] [facility] DIRECTOR: LATOYA MCCALL M.D. CLIA NUMBER [id number] CAP ACCREDITATION N O. [id number] HEMOGLOBIN [id number] 02:44:08 Test Item Value Reference Range Interpretation Comments HEMOGLOBIN A1c (test 7.0 % 4.2-5.6 H AMERIC AN DIABETES code = 61899) ASSOCIATION IDELINES FOR HGB A1C: PREDIABETES/INC REASED [...] Interpretation Comments HEMOGLOBIN A1c (test code = 04123) 7.0 % HEMOGLOBIN A1c [ADDED]2021-05-16 00:00:00 Test Item Value Reference Range Interpretation Comments HEMOGLOBIN A1c (test code = 46152) 7.0 % HEMOGLOBIN A1c [ADDED]2021-05-16 00:00:00 Test Item Value Reference Range Interpretation Comments HEMOGLOBIN A1c (test code = 03146) 7.0 % TSH, THIRD GENERATION [ADDED]2021-05-16 00:00:00 [...] Interpretation Comments HEMOGLOBIN A1c (test code = 60028) 7.0 % HEMOGLOBIN A1c [ADDED]2021-05-16 00:00:00 Test Item Value Reference Range Interpretation Comments HEMOGLOBIN A1c (test code = 92469) 7.0 % HEMOGLOBIN A1c [ADDED]2021-05-16 00:00:00 Test Item Value Reference Range Interpretation Comments HEMOGLOBIN A1c (test code = 99418) 7.0 % TSH, THIRD GENERATION [ADDED]2021-05-16 00:00:00 [...] Interpretation Comments HEMOGLOBIN A1c (test code = 77858) 7.0 % HEMOGLOBIN A1c [ADDED]2021-05-16 00:00:00 Test Item Value Reference Range Interpretation Comments HEMOGLOBIN A1c (test code = 70424) 7.0 % HEMOGLOBIN A1c [ADDED]2021-05-16 00:00:00 Test Item Value Reference Range Interpretation Comments HEMOGLOBIN A1c (test code = 10800) 7.0 % HEMOGLOBIN A1c [ADDED]2021-05-16 00:00:00 Test Item Value Reference Range Interpretation Comments HEMOGLOBIN A1c (test code = 49453) 7.0 % HEMOGLOBIN A1c [ADDED]2021-05-16 00:00:00 Test Item Value Reference Range Interpretation Comments HEMOGLOBIN A1c (test code = 57177) 7.0 % TSH, THIRD GENERATION [ADDED]2021-05-16 00:00:00 [...] Interpretation Comments HEMOGLOBIN A1c (test code = 48201) 7.0 % HEMOGLOBIN A1c [ADDED]2021-05-16 00:00:00 Test Item Value Reference Range Interpretation Comments HEMOGLOBIN A1c (test code = 71382) 7.0 % HEMOGLOBIN A1c [ADDED]2021-05-16 00:00:00 Test Item Value Reference Range Interpretation Comments HEMOGLOBIN A1c (test code = 93594) 7.0 % TSH, THIRD GENERATION [ADDED]2021-05-16 00:00:00 [...] Interpretation Comments HEMOGLOBIN A1c (test code = 38888) 7.0 % HEMOGLOBIN A1c [ADDED]2021-05-16 00:00:00 Test Item Value Reference Range Interpretation Comments HEMOGLOBIN A1c (test code = 30822) 7.0 % HEMOGLOBIN A1c [ADDED]2021-05-16 00:00:00 Test Item Value Reference Range Interpretation Comments HEMOGLOBIN A1c (test code = 60151) 7.0 % TSH, THIRD GENERATION [ADDED]2021-05-16 00:00:00 [...] Interpretation Comments HEMOGLOBIN A1c (test code = 59365) 7.0 % HEMOGLOBIN A1c [ADDED]2021-05-16 00:00:00 Test Item Value Reference Range Interpretation Comments HEMOGLOBIN A1c (test code = 60049) 7.0 % HEMOGLOBIN A1c [ADDED]2021-05-16 00:00:00 Test Item Value Reference Range Interpretation Comments HEMOGLOBIN A1c (test code = 91961) 7.0 % TSH, THIRD GENERATION [ADDED]2021-05-16 00:00:00 [...] Interpretation Comments HEMOGLOBIN A1c (test code = 79978) 7.0 % HEMOGLOBIN A1c [ADDED]2021-05-16 00:00:00 Test Item Value Reference Range Interpretation Comments HEMOGLOBIN A1c (test code = 49620) 7.0 % HEMOGLOBIN A1c [ADDED]2021-05-16 00:00:00 Test Item Value Reference Range Interpretation Comments HEMOGLOBIN A1c (test code = 88184) 7.0 % TSH, THIRD GENERATION [ADDED]2021-05-16 00:00:00 [...] 33.700 UIU/ML code = 2821) CBC W/AUTO [id number] 00:00:00 Test Item Value Reference Range Interpretation [...] NUCLEATED RBCS (test code = 0.00 K/UL 07794) CBC W/AUTO [id number] 00:00:00 Test Item Value Reference Range Interpretation [...] NUCLEATED RBCS (test code = 0.00 K/UL 67035) CBC W/AUTO [id number] 00:00:00 Test Item Value Reference Range Interpretation [...] NUCLEATED RBCS (test code = 0.00 K/UL 22017) COMPREHENSIVE METABOLIC [id number] 00:00:00 Test Item Value Reference Range Interpretation Comments GLUCOSE (test code = 2217) 317 MG/DL BUN (test code = 2208) 41 MG/DL CREATININE (test code = 2214) 6.82 MG/DL eGFR (2020 CKD-EPI) (test code 8 ML/MIN/1.73 = 63661) CALC BUN/CREAT (test code = 6 RATIO [...] code = 2219) 22 U/L COMPREHENSIVE METABOLIC [id number] 00:00:00 Test Item Value Reference Range Interpretation Comments GLUCOSE (test code = 2217) 317 MG/DL BUN (test code = 2208) 41 MG/DL CREATININE (test code = 2214) 6.82 MG/DL eGFR (2020 CKD-EPI) (test code 8 ML/MIN/1.73 = 20503) CALC BUN/CREAT (test code = 6 RATIO [...] code = 2219) 22 U/L CBC W/AUTO [id number] 00:00:00 Test Item Value Reference Range Interpretation [...] NUCLEATED RBCS (test code = 0.00 K/UL 72209) CBC W/AUTO [id number] 00:00:00 Test Item Value Reference Range Interpretation [...] NUCLEATED RBCS (test code = 0.00 K/UL 53248) CBC W/AUTO [id number] 00:00:00 Test Item Value Reference Range Interpretation [...] NUCLEATED RBCS (test code = 0.00 K/UL 09354) COMPREHENSIVE METABOLIC [id number] 00:00:00 Test Item Value Reference Range Interpretation Comments GLUCOSE (test code = 2217) 317 MG/DL BUN (test code = 2208) 41 MG/DL CREATININE (test code = 2214) 6.82 MG/DL eGFR (2020 CKD-EPI) (test code 8 ML/MIN/1.73 = 30813) CALC BUN/CREAT (test code = 6 RATIO [...] code = 2219) 22 U/L COMPREHENSIVE METABOLIC [id number] 00:00:00 Test Item Value Reference Range Interpretation Comments GLUCOSE (test code = 2217) 317 MG/DL BUN (test code = 2208) 41 MG/DL CREATININE (test code = 2214) 6.82 MG/DL eGFR (2020 CKD-EPI) (test code 8 ML/MIN/1.73 = 77895) CALC BUN/CREAT (test code = 6 RATIO [...] code = 2219) 22 U/L CBC W/AUTO [id number] 00:00:00 Test Item Value Reference Range Interpretation [...] NUCLEATED RBCS (test code = 0.00 K/UL 90397) CBC W/AUTO [id number] 00:00:00 Test Item Value Reference Range Interpretation [...] NUCLEATED RBCS (test code = 0.00 K/UL 80192) CBC W/AUTO [id number] 00:00:00 Test Item Value Reference Range Interpretation [...] NUCLEATED RBCS (test code = 0.00 K/UL 23653) CBC W/AUTO [id number] 00:00:00 Test Item Value Reference Range Interpretation [...] NUCLEATED RBCS (test code = 0.00 K/UL 51663) CBC W/AUTO [id number] 00:00:00 Test Item Value Reference Range Interpretation [...] NUCLEATED RBCS (test code = 0.00 K/UL 49012) COMPREHENSIVE METABOLIC [id number] 00:00:00 Test Item Value Reference Range Interpretation Comments GLUCOSE (test code = 2217) 317 MG/DL BUN (test code = 2208) 41 MG/DL CREATININE (test code = 2214) 6.82 MG/DL eGFR (2020 CKD-EPI) (test code 8 ML/MIN/1.73 = 76354) CALC BUN/CREAT (test code = 6 RATIO [...] code = 2219) 22 U/L COMPREHENSIVE METABOLIC [id number] 00:00:00 Test Item Value Reference Range Interpretation Comments GLUCOSE (test code = 2217) 317 MG/DL BUN (test code = 2208) 41 MG/DL CREATININE (test code = 2214) 6.82 MG/DL eGFR (2020 CKD-EPI) (test code 8 ML/MIN/1.73 = 99745) CALC BUN/CREAT (test code = 6 RATIO [...] code = 2219) 22 U/L COMPREHENSIVE METABOLIC [id number] 00:00:00 Test Item Value Reference Range Interpretation Comments GLUCOSE (test code = 2217) 317 MG/DL BUN (test code = 2208) 41 MG/DL CREATININE (test code = 2214) 6.82 MG/DL eGFR (2020 CKD-EPI) (test code 8 ML/MIN/1.73 = 03283) CALC BUN/CREAT (test code = 6 RATIO [...] code = 2219) 22 U/L CBC W/AUTO [id number] 00:00:00 Test Item Value Reference Range Interpretation [...] NUCLEATED RBCS (test code = 0.00 K/UL 72630) CBC W/AUTO [id number] 00:00:00 Test Item Value Reference Range Interpretation [...] NUCLEATED RBCS (test code = 0.00 K/UL 18174) CBC W/AUTO [id number] 00:00:00 Test Item Value Reference Range Interpretation [...] NUCLEATED RBCS (test code = 0.00 K/UL 98062) COMPREHENSIVE METABOLIC [id number] 00:00:00 Test Item Value Reference Range Interpretation Comments GLUCOSE (test code = 2217) 317 MG/DL BUN (test code = 2208) 41 MG/DL CREATININE (test code = 2214) 6.82 MG/DL eGFR (2020 CKD-EPI) (test code 8 ML/MIN/1.73 = 67357) CALC BUN/CREAT (test code = 6 RATIO [...] code = 2219) 22 U/L COMPREHENSIVE METABOLIC [id number] 00:00:00 Test Item Value Reference Range Interpretation Comments GLUCOSE (test code = 2217) 317 MG/DL BUN (test code = 2208) 41 MG/DL CREATININE (test code = 2214) 6.82 MG/DL eGFR (2020 CKD-EPI) (test code 8 ML/MIN/1.73 = 91925) CALC BUN/CREAT (test code = 6 RATIO [...] code = 2219) 22 U/L CBC W/AUTO [id number] 00:00:00 Test Item Value Reference Range Interpretation [...] NUCLEATED RBCS (test code = 0.00 K/UL 24649) CBC W/AUTO [id number] 00:00:00 Test Item Value Reference Range Interpretation [...] NUCLEATED RBCS (test code = 0.00 K/UL 30386) CBC W/AUTO [id number] 00:00:00 Test Item Value Reference Range Interpretation [...] NUCLEATED RBCS (test code = 0.00 K/UL 95520) COMPREHENSIVE METABOLIC [id number] 00:00:00 Test Item Value Reference Range Interpretation Comments GLUCOSE (test code = 2217) 317 MG/DL BUN (test code = 2208) 41 MG/DL CREATININE (test code = 2214) 6.82 MG/DL eGFR (2020 CKD-EPI) (test code 8 ML/MIN/1.73 = 65276) CALC BUN/CREAT (test code = 6 RATIO [...] code = 2219) 22 U/L COMPREHENSIVE METABOLIC [id number] 00:00:00 Test Item Value Reference Range Interpretation Comments GLUCOSE (test code = 2217) 317 MG/DL BUN (test code = 2208) 41 MG/DL CREATININE (test code = 2214) 6.82 MG/DL eGFR (2020 CKD-EPI) (test code 8 ML/MIN/1.73 = 28724) CALC BUN/CREAT (test code = 6 RATIO [...] code = 2219) 22 U/L CBC W/AUTO [id number] 00:00:00 Test Item Value Reference Range Interpretation [...] NUCLEATED RBCS (test code = 0.00 K/UL 46273) CBC W/AUTO [id number] 00:00:00 Test Item Value Reference Range Interpretation [...] NUCLEATED RBCS (test code = 0.00 K/UL 76886) CBC W/AUTO [id number] 00:00:00 Test Item Value Reference Range Interpretation [...] NUCLEATED RBCS (test code = 0.00 K/UL 85789) COMPREHENSIVE METABOLIC [id number] 00:00:00 Test Item Value Reference Range Interpretation Comments GLUCOSE (test code = 2217) 317 MG/DL BUN (test code = 2208) 41 MG/DL CREATININE (test code = 2214) 6.82 MG/DL eGFR (2020 CKD-EPI) (test code 8 ML/MIN/1.73 = 94853) CALC BUN/CREAT (test code = 6 RATIO [...] code = 2219) 22 U/L COMPREHENSIVE METABOLIC [id number] 00:00:00 Test Item Value Reference Range Interpretation Comments GLUCOSE (test code = 2217) 317 MG/DL BUN (test code = 2208) 41 MG/DL CREATININE (test code = 2214) 6.82 MG/DL eGFR (2020 CKD-EPI) (test code 8 ML/MIN/1.73 = 41559) CALC BUN/CREAT (test code = 6 RATIO [...] code = 2219) 22 U/L CBC W/AUTO [id number] 00:00:00 Test Item Value Reference Range Interpretation [...] NUCLEATED RBCS (test code = 0.00 K/UL 98857) CBC W/AUTO [id number] 00:00:00 Test Item Value Reference Range Interpretation [...] NUCLEATED RBCS (test code = 0.00 K/UL 62253) CBC W/AUTO [id number] 00:00:00 Test Item Value Reference Range Interpretation [...] NUCLEATED RBCS (test code = 0.00 K/UL 29482) COMPREHENSIVE METABOLIC [id number] 00:00:00 Test Item Value Reference Range Interpretation Comments GLUCOSE (test code = 2217) 317 MG/DL BUN (test code = 2208) 41 MG/DL CREATININE (test code = 2214) 6.82 MG/DL eGFR (2020 CKD-EPI) (test code 8 ML/MIN/1.73 = 10709) CALC BUN/CREAT (test code = 6 RATIO [...] code = 2219) 22 U/L COMPREHENSIVE METABOLIC [id number] 00:00:00 Test Item Value Reference Range Interpretation Comments GLUCOSE (test code = 2217) 317 MG/DL BUN (test code = 2208) 41 MG/DL CREATININE (test code = 2214) 6.82 MG/DL eGFR (2020 CKD-EPI) (test code 8 ML/MIN/1.73 = 92066) CALC BUN/CREAT (test code = 6 RATIO [...] ALT (test code = 2219) 22 U/L [id number] 00:00:00 Test Item Value Reference Range Interpretation Comments AMYLASE (test code = 2205) 168 U/L [id number] 00:00:00 Test Item Value Reference Range Interpretation Comments AMYLASE (test code = 2205) 168 U/L [id number] 00:00:00 Test Item Value Reference Range Interpretation Comments LIPASE (test code = 8) 116 U/L [id number] 00:00:00 Test Item Value Reference Range Interpretation Comments LIPASE (test code = 2057) 116 U/L [id number] 00:00:00 Test Item Value Reference Range Interpretation Comments LIPASE (test code = 2057) 116 U/L [id number] 00:00:00 Test Item Value Reference Range Interpretation Comments AMYLASE (test code = 2205) 168 U/L [id number] 00:00:00 Test Item Value Reference Range Interpretation Comments AMYLASE (test code = 5) 168 U/L [id number] 00:00:00 Test Item Value Reference Range Interpretation Comments LIPASE (test code = 2057) 116 U/L [id number] 00:00:00 Test Item Value Reference Range Interpretation Comments LIPASE (test code = 2057) 116 U/L [id number] 00:00:00 Test Item Value Reference Range Interpretation Comments LIPASE (test code = 2057) 116 U/L [id number] 00:00:00 Test Item Value Reference Range Interpretation Comments AMYLASE (test code = 5) 168 U/L [id number] 00:00:00 Test Item Value Reference Range Interpretation Comments AMYLASE (test code = 2204) 168 U/L [id number] 00:00:00 Test Item Value Reference Range Interpretation Comments AMYLASE (test code = 2204) 168 U/L [id number] 00:00:00 Test Item Value Reference Range Interpretation Comments LIPASE (test code = 2057) 116 U/L [id number] 00:00:00 Test Item Value Reference Range Interpretation Comments LIPASE (test code = 2057) 116 U/L [id number] 00:00:00 Test Item Value Reference Range Interpretation Comments LIPASE (test code = 2057) 116 U/L [id number] 00:00:00 Test Item Value Reference Range Interpretation Comments LIPASE (test code = 2057) 116 U/L [id number] 00:00:00 Test Item Value Reference Range Interpretation Comments LIPASE (test code = 2057) 116 U/L [id number] 00:00:00 Test Item Value Reference Range Interpretation Comments AMYLASE (test code = 5) 168 U/L [id number] 00:00:00 Test Item Value Reference Range Interpretation Comments AMYLASE (test code = 2204) 168 U/L [id number] 00:00:00 Test Item Value Reference Range Interpretation Comments LIPASE (test code = 2057) 116 U/L [id number] 00:00:00 Test Item Value Reference Range Interpretation Comments LIPASE (test code = 2057) 116 U/L [id number] 00:00:00 Test Item Value Reference Range Interpretation Comments LIPASE (test code = 2057) 116 U/L [id number] 00:00:00 Test Item Value Reference Range Interpretation Comments AMYLASE (test code = 5) 168 U/L [id number] 00:00:00 Test Item Value Reference Range Interpretation Comments AMYLASE (test code = 2204) 168 U/L [id number] 00:00:00 Test Item Value Reference Range Interpretation Comments LIPASE (test code = 2057) 116 U/L [id number] 00:00:00 Test Item Value Reference Range Interpretation Comments LIPASE (test code = 2057) 116 U/L [id number] 00:00:00 Test Item Value Reference Range Interpretation Comments LIPASE (test code = 2057) 116 U/L [id number] 00:00:00 Test Item Value Reference Range Interpretation Comments AMYLASE (test code = 5) 168 U/L [id number] 00:00:00 Test Item Value Reference Range Interpretation Comments AMYLASE (test code = 2204) 168 U/L [id number] 00:00:00 Test Item Value Reference Range Interpretation Comments LIPASE (test code = 2057) 116 U/L [id number] 00:00:00 Test Item Value Reference Range Interpretation Comments LIPASE (test code = 2057) 116 U/L [id number] 00:00:00 Test Item Value Reference Range Interpretation Comments LIPASE (test code = 2057) 116 U/L [id number] 00:00:00 Test Item Value Reference Range Interpretation Comments AMYLASE (test code = 2204) 168 U/L [id number] 00:00:00 Test Item Value Reference Range Interpretation Comments AMYLASE (test code = 2204) 168 U/L [id number] 00:00:00 Test Item Value Reference Range Interpretation Comments LIPASE (test code = 2057) 116 U/L [id number] 00:00:00 Test Item Value Reference Range Interpretation Comments LIPASE (test code = 2057) 116 U/L [id number] 00:00:00 Test Item Value Reference Range Interpretation Comments LIPASE (test code = 2057) 116 U/L [id number] 00:00:00 Test Item Value Reference Range Interpretation Comments TSH, THIRD GENERATION (test >100.000 UIU/ML code = 2821) [id number] 00:00:00 Test Item Value Reference Range Interpretation Comments TSH, THIRD GENERATION (test >100.000 UIU/ML code = 2821) [id number] 00:00:00 Test Item Value Reference Range Interpretation Comments TSH, THIRD GENERATION (test >100.000 UIU/ML code = 2821) LIPID [id number] 00:00:00 Test Item Value Reference Range Interpretation Comments CHOLESTEROL (test code = 2210) 308 MG/DL TRIGLYCERIDES (test code = 2232) 280 MG/DL HDL CHOLESTEROL (test code = 2220) 66 MG/DL CALC LDL CHOL (test code = 2237) 192 MG/DL RISK RATIO LDL/HDL (test code = 2.91 RATIO 2238) LIPID [id number] 00:00:00 Test Item Value Reference Range Interpretation Comments CHOLESTEROL (test code = 2210) 308 MG/DL TRIGLYCERIDES (test code = 2232) 280 MG/DL HDL CHOLESTEROL (test code = 2220) 66 MG/DL CALC LDL CHOL (test code = 2237) 192 MG/DL RISK RATIO LDL/HDL (test code = 2.91 RATIO 2238) CBC W/AUTO [id number] 00:00:00 Test Item Value Reference Range Interpretation [...] NUCLEATED RBCS (test code = 0.00 K/UL 77092) CBC W/AUTO [id number] 00:00:00 Test Item Value Reference Range Interpretation [...] NUCLEATED RBCS (test code = 0.00 K/UL 80624) CBC W/AUTO [id number] 00:00:00 Test Item Value Reference Range Interpretation [...] NUCLEATED RBCS (test code = 0.00 K/UL 56035) COMPREHENSIVE METABOLIC [id number] 00:00:00 Test Item Value Reference Range Interpretation Comments GLUCOSE (test code = 2217) 137 MG/DL BUN (test code = 2208) 56 MG/DL CREATININE (test code = 2214) 10.21 MG/DL eGFR AMER. (test code = 6 ML/MIN/1.73 81194) eGFR NON- AMER. (test 5 ML/MIN/1.73 code = 83231) CALC BUN/CREAT (test code = 5 RATIO [...] code = 2219) 16 U/L COMPREHENSIVE METABOLIC [id number] 00:00:00 Test Item Value Reference Range Interpretation Comments GLUCOSE (test code = 2217) 137 MG/DL BUN (test code = 2208) 56 MG/DL CREATININE (test code = 2214) 10.21 MG/DL eGFR AMER. (test code = 6 ML/MIN/1.73 15266) eGFR NON- AMER. (test 5 ML/MIN/1.73 code = 24060) CALC BUN/CREAT (test code = 5 RATIO [...] ALT (test code = 2219) 16 U/L [id number] 00:00:00 Test Item Value Reference Range Interpretation Comments TSH, THIRD GENERATION (test >100.000 UIU/ML code = 2821) [id number] 00:00:00 Test Item Value Reference Range Interpretation Comments TSH, THIRD GENERATION (test >100.000 UIU/ML code = 2821) [id number] 00:00:00 Test Item Value Reference Range Interpretation Comments TSH, THIRD GENERATION (test >100.000 UIU/ML code = 2821) LIPID [id number] 00:00:00 Test Item Value Reference Range Interpretation Comments CHOLESTEROL (test code = 2210) 308 MG/DL TRIGLYCERIDES (test code = 2232) 280 MG/DL HDL CHOLESTEROL (test code = 2220) 66 MG/DL CALC LDL CHOL (test code = 2237) 192 MG/DL RISK RATIO LDL/HDL (test code = 2.91 RATIO 2238) LIPID [id number] 00:00:00 Test Item Value Reference Range Interpretation Comments CHOLESTEROL (test code = 2210) 308 MG/DL TRIGLYCERIDES (test code = 2232) 280 MG/DL HDL CHOLESTEROL (test code = 2220) 66 MG/DL CALC LDL CHOL (test code = 2237) 192 MG/DL RISK RATIO LDL/HDL (test code = 2.91 RATIO 2238) CBC W/AUTO [id number] 00:00:00 Test Item Value Reference Range Interpretation [...] NUCLEATED RBCS (test code = 0.00 K/UL 21438) CBC W/AUTO [id number] 00:00:00 Test Item Value Reference Range Interpretation [...] NUCLEATED RBCS (test code = 0.00 K/UL 80312) CBC W/AUTO [id number] 00:00:00 Test Item Value Reference Range Interpretation [...] NUCLEATED RBCS (test code = 0.00 K/UL 99161) COMPREHENSIVE METABOLIC [id number] 00:00:00 Test Item Value Reference Range Interpretation Comments GLUCOSE (test code = 2217) 137 MG/DL BUN (test code = 2208) 56 MG/DL CREATININE (test code = 2214) 10.21 MG/DL eGFR AMER. (test code = 6 ML/MIN/1.73 98726) eGFR NON- AMER. (test 5 ML/MIN/1.73 code = 97958) CALC BUN/CREAT (test code = 5 RATIO [...] code = 2219) 16 U/L COMPREHENSIVE METABOLIC [id number] 00:00:00 Test Item Value Reference Range Interpretation Comments GLUCOSE (test code = 2217) 137 MG/DL BUN (test code = 2208) 56 MG/DL CREATININE (test code = 2214) 10.21 MG/DL eGFR AMER. (test code = 6 ML/MIN/1.73 99596) eGFR NON- AMER. (test 5 ML/MIN/1.73 code = 01083) CALC BUN/CREAT (test code = 5 RATIO [...] ALT (test code = 2219) 16 U/L [id number] 00:00:00 Test Item Value Reference Range Interpretation Comments TSH, THIRD GENERATION (test >100.000 UIU/ML code = 2821) [id number] 00:00:00 Test Item Value Reference Range Interpretation Comments TSH, THIRD GENERATION (test >100.000 UIU/ML code = 2821) [id number] 00:00:00 Test Item Value Reference Range Interpretation Comments TSH, THIRD GENERATION (test >100.000 UIU/ML code = 2821) [id number] 00:00:00 Test Item Value Reference Range Interpretation Comments TSH, THIRD GENERATION (test >100.000 UIU/ML code = 2821) [id number] 00:00:00 Test Item Value Reference Range Interpretation Comments TSH, THIRD GENERATION (test >100.000 UIU/ML code = 2821) LIPID [id number] 00:00:00 Test Item Value Reference Range Interpretation Comments CHOLESTEROL (test code = 2210) 308 MG/DL TRIGLYCERIDES (test code = 2232) 280 MG/DL HDL CHOLESTEROL (test code = 2220) 66 MG/DL CALC LDL CHOL (test code = 2237) 192 MG/DL RISK RATIO LDL/HDL (test code = 2.91 RATIO 2238) LIPID [id number] 00:00:00 Test Item Value Reference Range Interpretation Comments CHOLESTEROL (test code = 2210) 308 MG/DL TRIGLYCERIDES (test code = 2232) 280 MG/DL HDL CHOLESTEROL (test code = 2220) 66 MG/DL CALC LDL CHOL (test code = 2237) 192 MG/DL RISK RATIO LDL/HDL (test code = 2.91 RATIO 2238) CBC W/AUTO [id number] 00:00:00 Test Item Value Reference Range Interpretation [...] NUCLEATED RBCS (test code = 0.00 K/UL 85450) CBC W/AUTO [id number] 00:00:00 Test Item Value Reference Range Interpretation [...] NUCLEATED RBCS (test code = 0.00 K/UL 36548) CBC W/AUTO [id number] 00:00:00 Test Item Value Reference Range Interpretation [...] NUCLEATED RBCS (test code = 0.00 K/UL 32443) COMPREHENSIVE METABOLIC [id number] 00:00:00 Test Item Value Reference Range Interpretation Comments GLUCOSE (test code = 2217) 137 MG/DL BUN (test code = 2208) 56 MG/DL CREATININE (test code = 2214) 10.21 MG/DL eGFR AMER. (test code = 6 ML/MIN/1.73 82973) eGFR NON- AMER. (test 5 ML/MIN/1.73 code = 50639) CALC BUN/CREAT (test code = 5 RATIO [...] code = 2219) 16 U/L COMPREHENSIVE METABOLIC [id number] 00:00:00 Test Item Value Reference Range Interpretation Comments GLUCOSE (test code = 2217) 137 MG/DL BUN (test code = 2208) 56 MG/DL CREATININE (test code = 2214) 10.21 MG/DL eGFR AMER. (test code = 6 ML/MIN/1.73 72567) eGFR NON- AMER. (test 5 ML/MIN/1.73 code = 11331) CALC BUN/CREAT (test code = 5 RATIO [...] (test code = 2219) 16 U/L LIPID [id number] 00:00:00 Test Item Value Reference Range Interpretation Comments CHOLESTEROL (test code = 2210) 308 MG/DL TRIGLYCERIDES (test code = 2232) 280 MG/DL HDL CHOLESTEROL (test code = 2220) 66 MG/DL CALC LDL CHOL (test code = 2237) 192 MG/DL RISK RATIO LDL/HDL (test code = 2.91 RATIO 2238) CBC W/AUTO [id number] 00:00:00 Test Item Value Reference Range Interpretation [...] NUCLEATED RBCS (test code = 0.00 K/UL 04991) CBC W/AUTO [id number] 00:00:00 Test Item Value Reference Range Interpretation [...] NUCLEATED RBCS (test code = 0.00 K/UL 48853) COMPREHENSIVE METABOLIC [id number] 00:00:00 Test Item Value Reference Range Interpretation Comments GLUCOSE (test code = 2217) 137 MG/DL BUN (test code = 2208) 56 MG/DL CREATININE (test code = 2214) 10.21 MG/DL eGFR AMER. (test code = 6 ML/MIN/1.73 42071) eGFR NON- AMER. (test 5 ML/MIN/1.73 code = 55483) CALC BUN/CREAT (test code = 5 RATIO [...] ALT (test code = 2219) 16 U/L [id number] 00:00:00 Test Item Value Reference Range Interpretation Comments TSH, THIRD GENERATION (test >100.000 UIU/ML code = 2821) [id number] 00:00:00 Test Item Value Reference Range Interpretation Comments TSH, THIRD GENERATION (test >100.000 UIU/ML code = 2821) [id number] 00:00:00 Test Item Value Reference Range Interpretation Comments TSH, THIRD GENERATION (test >100.000 UIU/ML code = 2821) LIPID [id number] 00:00:00 Test Item Value Reference Range Interpretation Comments CHOLESTEROL (test code = 2210) 308 MG/DL TRIGLYCERIDES (test code = 2232) 280 MG/DL HDL CHOLESTEROL (test code = 2220) 66 MG/DL CALC LDL CHOL (test code = 2237) 192 MG/DL RISK RATIO LDL/HDL (test code = 2.91 RATIO 2238) LIPID [id number] 00:00:00 Test Item Value Reference Range Interpretation Comments CHOLESTEROL (test code = 2210) 308 MG/DL TRIGLYCERIDES (test code = 2232) 280 MG/DL HDL CHOLESTEROL (test code = 2220) 66 MG/DL CALC LDL CHOL (test code = 2237) 192 MG/DL RISK RATIO LDL/HDL (test code = 2.91 RATIO 2238) CBC W/AUTO [id number] 00:00:00 Test Item Value Reference Range Interpretation [...] NUCLEATED RBCS (test code = 0.00 K/UL 38816) CBC W/AUTO [id number] 00:00:00 Test Item Value Reference Range Interpretation [...] NUCLEATED RBCS (test code = 0.00 K/UL 46475) CBC W/AUTO [id number] 00:00:00 Test Item Value Reference Range Interpretation [...] NUCLEATED RBCS (test code = 0.00 K/UL 23613) COMPREHENSIVE METABOLIC [id number] 00:00:00 Test Item Value Reference Range Interpretation Comments GLUCOSE (test code = 2217) 137 MG/DL BUN (test code = 2208) 56 MG/DL CREATININE (test code = 2214) 10.21 MG/DL eGFR AMER. (test code = 6 ML/MIN/1.73 03883) eGFR NON- AMER. (test 5 ML/MIN/1.73 code = 75430) CALC BUN/CREAT (test code = 5 RATIO [...] code = 2219) 16 U/L COMPREHENSIVE METABOLIC [id number] 00:00:00 Test Item Value Reference Range Interpretation Comments GLUCOSE (test code = 2217) 137 MG/DL BUN (test code = 2208) 56 MG/DL CREATININE (test code = 2214) 10.21 MG/DL eGFR AMER. (test code = 6 ML/MIN/1.73 71371) eGFR NON- AMER. (test 5 ML/MIN/1.73 code = 23981) CALC BUN/CREAT (test code = 5 RATIO [...] ALT (test code = 2219) 16 U/L [id number] 00:00:00 Test Item Value Reference Range Interpretation Comments TSH, THIRD GENERATION (test >100.000 UIU/ML code = 2821) [id number] 00:00:00 Test Item Value Reference Range Interpretation Comments TSH, THIRD GENERATION (test >100.000 UIU/ML code = 2821) [id number] 00:00:00 Test Item Value Reference Range Interpretation Comments TSH, THIRD GENERATION (test >100.000 UIU/ML code = 2821) LIPID [id number] 00:00:00 Test Item Value Reference Range Interpretation Comments CHOLESTEROL (test code = 2210) 308 MG/DL TRIGLYCERIDES (test code = 2232) 280 MG/DL HDL CHOLESTEROL (test code = 2220) 66 MG/DL CALC LDL CHOL (test code = 2237) 192 MG/DL RISK RATIO LDL/HDL (test code = 2.91 RATIO 2238) LIPID [id number] 00:00:00 Test Item Value Reference Range Interpretation Comments CHOLESTEROL (test code = 2210) 308 MG/DL TRIGLYCERIDES (test code = 2232) 280 MG/DL HDL CHOLESTEROL (test code = 2220) 66 MG/DL CALC LDL CHOL (test code = 2237) 192 MG/DL RISK RATIO LDL/HDL (test code = 2.91 RATIO 2238) CBC W/AUTO [id number] 00:00:00 Test Item Value Reference Range Interpretation [...] NUCLEATED RBCS (test code = 0.00 K/UL 06546) CBC W/AUTO [id number] 00:00:00 Test Item Value Reference Range Interpretation [...] NUCLEATED RBCS (test code = 0.00 K/UL 28632) CBC W/AUTO [id number] 00:00:00 Test Item Value Reference Range Interpretation [...] NUCLEATED RBCS (test code = 0.00 K/UL 55714) COMPREHENSIVE METABOLIC [id number] 00:00:00 Test Item Value Reference Range Interpretation Comments GLUCOSE (test code = 2217) 137 MG/DL BUN (test code = 2208) 56 MG/DL CREATININE (test code = 2214) 10.21 MG/DL eGFR AMER. (test code = 6 ML/MIN/1.73 12454) eGFR NON- AMER. (test 5 ML/MIN/1.73 code = 15905) CALC BUN/CREAT (test code = 5 RATIO [...] RATIO 223) BILIRUBIN, TOTAL (test code = 0.4 MG/DL 2206) ALKALINE PHOSPHATASE (test code 83 U/L = 2204) AST (test code = 2218) 13 U/L ALT (test code = 2219) 16 U/L COMPREHENSIVE METABOLIC [id number] 00:00:00 Test Item Value Reference Range Interpretation Comments GLUCOSE (test code = 2217) 137 MG/DL BUN (test code = 2208) 56 MG/DL CREATININE (test code = 2214) 10.21 MG/DL eGFR AMER. (test code = 6 ML/MIN/1.73 66969) eGFR NON- AMER. (test 5 ML/MIN/1.73 code = 26240) CALC BUN/CREAT (test code = 5 RATIO [...] ALT (test code = 2219) 16 U/L [id number] 00:00:00 Test Item Value Reference Range Interpretation Comments TSH, THIRD GENERATION (test >100.000 UIU/ML code = 2821) [id number] 00:00:00 Test Item Value Reference Range Interpretation Comments TSH, THIRD GENERATION (test >100.000 UIU/ML code = 2821) [id number] 00:00:00 Test Item Value Reference Range Interpretation Comments TSH, THIRD GENERATION (test >100.000 UIU/ML code = 2821) LIPID [id number] 00:00:00 Test Item Value Reference Range Interpretation Comments CHOLESTEROL (test code = 2210) 308 MG/DL TRIGLYCERIDES (test code = 2232) 280 MG/DL HDL CHOLESTEROL (test code = 2220) 66 MG/DL CALC LDL CHOL (test code = 2237) 192 MG/DL RISK RATIO LDL/HDL (test code = 2.91 RATIO 2238) LIPID [id number] 00:00:00 Test Item Value Reference Range Interpretation Comments CHOLESTEROL (test code = 2210) 308 MG/DL TRIGLYCERIDES (test code = 2232) 280 MG/DL HDL CHOLESTEROL (test code = 2220) 66 MG/DL CALC LDL CHOL (test code = 2237) 192 MG/DL RISK RATIO LDL/HDL (test code = 2.91 RATIO 2238) CBC W/AUTO [id number] 00:00:00 Test Item Value Reference Range Interpretation [...] NUCLEATED RBCS (test code = 0.00 K/UL 94238) CBC W/AUTO [id number] 00:00:00 Test Item Value Reference Range Interpretation [...] NUCLEATED RBCS (test code = 0.00 K/UL 60660) CBC W/AUTO [id number] 00:00:00 Test Item Value Reference Range Interpretation [...] NUCLEATED RBCS (test code = 0.00 K/UL 49084) COMPREHENSIVE METABOLIC [id number] 00:00:00 Test Item Value Reference Range Interpretation Comments GLUCOSE (test code = 2217) 137 MG/DL BUN (test code = 2208) 56 MG/DL CREATININE (test code = 2214) 10.21 MG/DL eGFR AMER. (test code = 6 ML/MIN/1.73 58197) eGFR NON- AMER. (test 5 ML/MIN/1.73 code = 75727) CALC BUN/CREAT (test code = 5 RATIO [...] code = 2219) 16 U/L COMPREHENSIVE METABOLIC [id number] 00:00:00 Test Item Value Reference Range Interpretation Comments GLUCOSE (test code = 2217) 137 MG/DL BUN (test code = 2208) 56 MG/DL CREATININE (test code = 2214) 10.21 MG/DL eGFR AMER. (test code = 6 ML/MIN/1.73 50515) eGFR NON- AMER. (test 5 ML/MIN/1.73 code = 63182) CALC BUN/CREAT (test code = 5 RATIO [...] ALT (test code = 2219) 16 U/L [id number] 00:00:00 Test Item Value Reference Range Interpretation Comments TSH, THIRD GENERATION (test >100.000 UIU/ML code = 2821) [id number] 00:00:00 Test Item Value Reference Range Interpretation Comments TSH, THIRD GENERATION (test >100.000 UIU/ML code = 2821) [id number] 00:00:00 Test Item Value Reference Range Interpretation Comments TSH, THIRD GENERATION (test >100.000 UIU/ML code = 2821) LIPID [id number] 00:00:00 Test Item Value Reference Range Interpretation Comments CHOLESTEROL (test code = 2210) 308 MG/DL TRIGLYCERIDES (test code = 2232) 280 MG/DL HDL CHOLESTEROL (test code = 2220) 66 MG/DL CALC LDL CHOL (test code = 2237) 192 MG/DL RISK RATIO LDL/HDL (test code = 2.91 RATIO 2238) LIPID [id number] 00:00:00 Test Item Value Reference Range Interpretation Comments CHOLESTEROL (test code = 2210) 308 MG/DL TRIGLYCERIDES (test code = 2232) 280 MG/DL HDL CHOLESTEROL (test code = 2220) 66 MG/DL CALC LDL CHOL (test code = 2237) 192 MG/DL RISK RATIO LDL/HDL (test code = 2.91 RATIO 2238) CBC W/AUTO [id number] 00:00:00 Test Item Value Reference Range Interpretation [...] NUCLEATED RBCS (test code = 0.00 K/UL 99169) CBC W/AUTO [id number] 00:00:00 Test Item Value Reference Range Interpretation [...] NUCLEATED RBCS (test code = 0.00 K/UL 87358) CBC W/AUTO [id number] 00:00:00 Test Item Value Reference Range Interpretation [...] NUCLEATED RBCS (test code = 0.00 K/UL 67441) COMPREHENSIVE METABOLIC [id number] 00:00:00 Test Item Value Reference Range Interpretation Comments GLUCOSE (test code = 2217) 137 MG/DL BUN (test code = 2208) 56 MG/DL CREATININE (test code = 2214) 10.21 MG/DL eGFR AMER. (test code = 6 ML/MIN/1.73 90389) eGFR NON- AMER. (test 5 ML/MIN/1.73 code = 66517) CALC BUN/CREAT (test code = 5 RATIO [...] code = 2219) 16 U/L COMPREHENSIVE METABOLIC [id number] 00:00:00 Test Item Value Reference Range Interpretation Comments GLUCOSE (test code = 2217) 137 MG/DL BUN (test code = 2208) 56 MG/DL CREATININE (test code = 2214) 10.21 MG/DL eGFR AMER. (test code = 6 ML/MIN/1.73 88121) eGFR NON- AMER. (test 5 ML/MIN/1.73 code = 11321) CALC BUN/CREAT (test code = 5 RATIO [...] (test code = 2219) 16 U/L HEMOGLOBIN [id number] 00:00:00 Test Item Value Reference Range Interpretation Comments HEMOGLOBIN A1c (test code = 82851) 5.5 % HEMOGLOBIN [id number] 00:00:00 Test Item Value Reference Range Interpretation Comments HEMOGLOBIN A1c (test code = 96467) 5.5 % HEMOGLOBIN [id number] 00:00:00 Test Item Value Reference Range Interpretation Comments HEMOGLOBIN A1c (test code = 39454) 5.5 % [id number] 00:00:00 Test Item Value Reference Range Interpretation Comments TSH, THIRD GENERATION (test >100.000 UIU/ML code = 2821) [id number] 00:00:00 Test Item Value Reference Range Interpretation Comments TSH, THIRD GENERATION (test >100.000 UIU/ML code = 2821) [id number] 00:00:00 Test Item Value Reference Range Interpretation Comments TSH, THIRD GENERATION (test >100.000 UIU/ML code = 2821) HEMOGLOBIN [id number] 00:00:00 Test Item Value Reference Range Interpretation Comments HEMOGLOBIN A1c (test code = 97774) 5.5 % HEMOGLOBIN [id number] 00:00:00 Test Item Value Reference Range Interpretation Comments HEMOGLOBIN A1c (test code = 87336) 5.5 % HEMOGLOBIN [id number] 00:00:00 Test Item Value Reference Range Interpretation Comments HEMOGLOBIN A1c (test code = 73426) 5.5 % [id number] 00:00:00 Test Item Value Reference Range Interpretation Comments TSH, THIRD GENERATION (test >100.000 UIU/ML code = 2821) [id number] 00:00:00 Test Item Value Reference Range Interpretation Comments TSH, THIRD GENERATION (test >100.000 UIU/ML code = 2821) [id number] 00:00:00 Test Item Value Reference Range Interpretation Comments TSH, THIRD GENERATION (test >100.000 UIU/ML code = 2821) HEMOGLOBIN [id number] 00:00:00 Test Item Value Reference Range Interpretation Comments HEMOGLOBIN A1c (test code = 28650) 5.5 % HEMOGLOBIN [id number] 00:00:00 Test Item Value Reference Range Interpretation Comments HEMOGLOBIN A1c (test code = 62905) 5.5 % HEMOGLOBIN [id number] 00:00:00 Test Item Value Reference Range Interpretation Comments HEMOGLOBIN A1c (test code = 15375) 5.5 % HEMOGLOBIN [id number] 00:00:00 Test Item Value Reference Range Interpretation Comments HEMOGLOBIN A1c (test code = 02564) 5.5 % HEMOGLOBIN [id number] 00:00:00 Test Item Value Reference Range Interpretation Comments HEMOGLOBIN A1c (test code = 70791) 5.5 % [id number] 00:00:00 Test Item Value Reference Range Interpretation Comments TSH, THIRD GENERATION (test >100.000 UIU/ML code = 2821) [id number] 00:00:00 Test Item Value Reference Range Interpretation Comments TSH, THIRD GENERATION (test >100.000 UIU/ML code = 2821) [id number] 00:00:00 Test Item Value Reference Range Interpretation Comments TSH, THIRD GENERATION (test >100.000 UIU/ML code = 2821) [id number] 00:00:00 Test Item Value Reference Range Interpretation Comments TSH, THIRD GENERATION (test >100.000 UIU/ML code = 2821) [id number] 00:00:00 Test Item Value Reference Range Interpretation Comments TSH, THIRD GENERATION (test >100.000 UIU/ML code = 2821) HEMOGLOBIN [id number] 00:00:00 Test Item Value Reference Range Interpretation Comments HEMOGLOBIN A1c (test code = 58333) 5.5 % HEMOGLOBIN [id number] 00:00:00 Test Item Value Reference Range Interpretation Comments HEMOGLOBIN A1c (test code = 25030) 5.5 % HEMOGLOBIN [id number] 00:00:00 Test Item Value Reference Range Interpretation Comments HEMOGLOBIN A1c (test code = 23533) 5.5 % [id number] 00:00:00 Test Item Value Reference Range Interpretation Comments TSH, THIRD GENERATION (test >100.000 UIU/ML code = 2821) [id number] 00:00:00 Test Item Value Reference Range Interpretation Comments TSH, THIRD GENERATION (test >100.000 UIU/ML code = 2821) [id number] 00:00:00 Test Item Value Reference Range Interpretation Comments TSH, THIRD GENERATION (test >100.000 UIU/ML code = 2821) HEMOGLOBIN [id number] 00:00:00 Test Item Value Reference Range Interpretation Comments HEMOGLOBIN A1c (test code = 09601) 5.5 % HEMOGLOBIN [id number] 00:00:00 Test Item Value Reference Range Interpretation Comments HEMOGLOBIN A1c (test code = 11472) 5.5 % HEMOGLOBIN [id number] 00:00:00 Test Item Value Reference Range Interpretation Comments HEMOGLOBIN A1c (test code = 09014) 5.5 % [id number] 00:00:00 Test Item Value Reference Range Interpretation Comments TSH, THIRD GENERATION (test >100.000 UIU/ML code = 2821) [id number] 00:00:00 Test Item Value Reference Range Interpretation Comments TSH, THIRD GENERATION (test >100.000 UIU/ML code = 2821) [id number] 00:00:00 Test Item Value Reference Range Interpretation Comments TSH, THIRD GENERATION (test >100.000 UIU/ML code = 2821) HEMOGLOBIN [id number] 00:00:00 Test Item Value Reference Range Interpretation Comments HEMOGLOBIN A1c (test code = 71081) 5.5 % HEMOGLOBIN [id number] 00:00:00 Test Item Value Reference Range Interpretation Comments HEMOGLOBIN A1c (test code = 80768) 5.5 % HEMOGLOBIN [id number] 00:00:00 Test Item Value Reference Range Interpretation Comments HEMOGLOBIN A1c (test code = 89943) 5.5 % [id number] 00:00:00 Test Item Value Reference Range Interpretation Comments TSH, THIRD GENERATION (test >100.000 UIU/ML code = 2821) [id number] 00:00:00 Test Item Value Reference Range Interpretation Comments TSH, THIRD GENERATION (test >100.000 UIU/ML code = 2821) [id number] 00:00:00 Test Item Value Reference Range Interpretation Comments TSH, THIRD GENERATION (test >100.000 UIU/ML code = 2821) HEMOGLOBIN [id number] 00:00:00 Test Item Value Reference Range Interpretation Comments HEMOGLOBIN A1c (test code = 16705) 5.5 % HEMOGLOBIN [id number] 00:00:00 Test Item Value Reference Range Interpretation Comments HEMOGLOBIN A1c (test code = 70807) 5.5 % HEMOGLOBIN [id number] 00:00:00 Test Item Value Reference Range Interpretation Comments HEMOGLOBIN A1c (test code = 39109) 5.5 % [id number] 00:00:00 Test Item Value Reference Range Interpretation Comments TSH, THIRD GENERATION (test >100.000 UIU/ML code = 2821) [id number] 00:00:00 Test Item Value Reference Range Interpretation Comments TSH, THIRD GENERATION (test >100.000 UIU/ML code = 2821) [id number] 00:00:00 Test Item Value Reference Range Interpretation Comments TSH, THIRD GENERATION (test >100.000 UIU/ML code = 2821) CBC W/AUTO [id number] 00:00:00 Test Item Value Reference Range Interpretation [...] code = 1015) 298 K/UL CBC W/AUTO [id number] 00:00:00 Test Item Value Reference Range Interpretation [...] code = 1015) 298 K/UL CBC W/AUTO [id number] 00:00:00 Test Item Value Reference Range Interpretation [...] code = 1015) 298 K/UL COMPREHENSIVE METABOLIC [id number] 00:00:00 Test Item Value Reference Range Interpretation Comments GLUCOSE (test code = 2217) 228 MG/DL BUN (test code = 2208) 23 MG/DL CREATININE (test code = 2214) 5.99 MG/DL eGFR AMER. (test code 11 ML/MIN/1.73 = 18100) eGFR NON- AMER. (test 10 ML/MIN/1.73 code = 14617) CALC BUN/CREAT (test code = 4 RATIO [...] code = 2219) 24 U/L COMPREHENSIVE METABOLIC [id number] 00:00:00 Test Item Value Reference Range Interpretation Comments GLUCOSE (test code = 2217) 228 MG/DL BUN (test code = 2208) 23 MG/DL CREATININE (test code = 2214) 5.99 MG/DL eGFR AMER. (test code 11 ML/MIN/1.73 = 95676) eGFR NON- AMER. (test 10 ML/MIN/1.73 code = 58978) CALC BUN/CREAT (test code = 4 RATIO [...] (test code = 2219) 24 U/L LIPID [id number] 00:00:00 Test Item Value Reference Range Interpretation Comments CHOLESTEROL (test code = 2210) 335 MG/DL TRIGLYCERIDES (test code = 2232) 446 MG/DL HDL CHOLESTEROL (test code = 73 MG/DL 0) CALC LDL CHOL (test code = 2237) (NOTE) MG/DL RISK RATIO LDL/HDL (test code = (NOTE) RATIO 2238) LIPID [id number] 00:00:00 Test Item Value Reference Range Interpretation Comments CHOLESTEROL (test code = 2210) 335 MG/DL TRIGLYCERIDES (test code = 2232) 446 MG/DL HDL CHOLESTEROL (test code = 73 MG/DL 2220) CALC LDL CHOL (test code = 2237) (NOTE) MG/DL RISK RATIO LDL/HDL (test code = (NOTE) RATIO 2238) [id number] 00:00:00 Test Item Value Reference Range Interpretation Comments TSH, THIRD GENERATION (test >100.000 UIU/ML code = 2821) [id number] 00:00:00 Test Item Value Reference Range Interpretation Comments TSH, THIRD GENERATION (test >100.000 UIU/ML code = 2821) [id number] 00:00:00 Test Item Value Reference Range Interpretation Comments TSH, THIRD GENERATION (test >100.000 UIU/ML code = 2821) CBC W/AUTO [id number] 00:00:00 Test Item Value Reference Range Interpretation [...] code = 1015) 298 K/UL CBC W/AUTO [id number] 00:00:00 Test Item Value Reference Range Interpretation [...] code = 1015) 298 K/UL CBC W/AUTO [id number] 00:00:00 Test Item Value Reference Range Interpretation [...] code = 1015) 298 K/UL COMPREHENSIVE METABOLIC [id number] 00:00:00 Test Item Value Reference Range Interpretation Comments GLUCOSE (test code = 2217) 228 MG/DL BUN (test code = 2208) 23 MG/DL CREATININE (test code = 2214) 5.99 MG/DL eGFR AMER. (test code 11 ML/MIN/1.73 = 14999) eGFR NON- AMER. (test 10 ML/MIN/1.73 code = 48589) CALC BUN/CREAT (test code = 4 RATIO [...] code = 2219) 24 U/L COMPREHENSIVE METABOLIC [id number] 00:00:00 Test Item Value Reference Range Interpretation Comments GLUCOSE (test code = 2217) 228 MG/DL BUN (test code = 2208) 23 MG/DL CREATININE (test code = 2214) 5.99 MG/DL eGFR AMER. (test code 11 ML/MIN/1.73 = 93172) eGFR NON- AMER. (test 10 ML/MIN/1.73 code = 15485) CALC BUN/CREAT (test code = 4 RATIO [...] (test code = 2219) 24 U/L LIPID [id number] 00:00:00 Test Item Value Reference Range Interpretation Comments CHOLESTEROL (test code = 2210) 335 MG/DL TRIGLYCERIDES (test code = 2232) 446 MG/DL HDL CHOLESTEROL (test code = 73 MG/DL 2220) CALC LDL CHOL (test code = 2237) (NOTE) MG/DL RISK RATIO LDL/HDL (test code = (NOTE) RATIO 2238) LIPID [id number] 00:00:00 Test Item Value Reference Range Interpretation Comments CHOLESTEROL (test code = 2210) 335 MG/DL TRIGLYCERIDES (test code = 2232) 446 MG/DL HDL CHOLESTEROL (test code = 73 MG/DL 2220) CALC LDL CHOL (test code = 2237) (NOTE) MG/DL RISK RATIO LDL/HDL (test code = (NOTE) RATIO 2238) [id number] 00:00:00 Test Item Value Reference Range Interpretation Comments TSH, THIRD GENERATION (test >100.000 UIU/ML code = 2821) [id number] 00:00:00 Test Item Value Reference Range Interpretation Comments TSH, THIRD GENERATION (test >100.000 UIU/ML code = 2821) [id number] 00:00:00 Test Item Value Reference Range Interpretation Comments TSH, THIRD GENERATION (test >100.000 UIU/ML code = 2821) CBC W/AUTO [id number] 00:00:00 Test Item Value Reference Range Interpretation [...] code = 1015) 298 K/UL CBC W/AUTO [id number] 00:00:00 Test Item Value Reference Range Interpretation [...] code = 1015) 298 K/UL CBC W/AUTO [id number] 00:00:00 Test Item Value Reference Range Interpretation [...] code = 1015) 298 K/UL CBC W/AUTO [id number] 00:00:00 Test Item Value Reference Range Interpretation [...] code = 1015) 298 K/UL CBC W/AUTO [id number] 00:00:00 Test Item Value Reference Range Interpretation [...] code = 1015) 298 K/UL COMPREHENSIVE METABOLIC [id number] 00:00:00 Test Item Value Reference Range Interpretation Comments GLUCOSE (test code = 2217) 228 MG/DL BUN (test code = 2208) 23 MG/DL CREATININE (test code = 2214) 5.99 MG/DL eGFR AMER. (test code 11 ML/MIN/1.73 = 94262) eGFR NON- AMER. (test 10 ML/MIN/1.73 code = 41326) CALC BUN/CREAT (test code = 4 RATIO [...] code = 2219) 24 U/L COMPREHENSIVE METABOLIC [id number] 00:00:00 Test Item Value Reference Range Interpretation Comments GLUCOSE (test code = 2217) 228 MG/DL BUN (test code = 2208) 23 MG/DL CREATININE (test code = 2214) 5.99 MG/DL eGFR AMER. (test code 11 ML/MIN/1.73 = 48532) eGFR NON- AMER. (test 10 ML/MIN/1.73 code = 98711) CALC BUN/CREAT (test code = 4 RATIO [...] (test code = 2219) 24 U/L LIPID [id number] 00:00:00 Test Item Value Reference Range Interpretation Comments CHOLESTEROL (test code = 2210) 335 MG/DL TRIGLYCERIDES (test code = 2232) 446 MG/DL HDL CHOLESTEROL (test code = 73 MG/DL 2220) CALC LDL CHOL (test code = 2237) (NOTE) MG/DL RISK RATIO LDL/HDL (test code = (NOTE) RATIO 2238) LIPID [id number] 00:00:00 Test Item Value Reference Range Interpretation Comments CHOLESTEROL (test code = 2210) 335 MG/DL TRIGLYCERIDES (test code = 2232) 446 MG/DL HDL CHOLESTEROL (test code = 73 MG/DL 2220) CALC LDL CHOL (test code = 2237) (NOTE) MG/DL RISK RATIO LDL/HDL (test code = (NOTE) RATIO 2238) [id number] 00:00:00 Test Item Value Reference Range Interpretation Comments TSH, THIRD GENERATION (test >100.000 UIU/ML code = 2821) [id number] 00:00:00 Test Item Value Reference Range Interpretation Comments TSH, THIRD GENERATION (test >100.000 UIU/ML code = 2821) [id number] 00:00:00 Test Item Value Reference Range Interpretation Comments TSH, THIRD GENERATION (test >100.000 UIU/ML code = 2821) COMPREHENSIVE METABOLIC [id number] 00:00:00 Test Item Value Reference Range Interpretation Comments GLUCOSE (test code = 2217) 228 MG/DL BUN (test code = 2208) 23 MG/DL CREATININE (test code = 2214) 5.99 MG/DL eGFR AMER. (test code 11 ML/MIN/1.73 = 36787) eGFR NON- AMER. (test 10 ML/MIN/1.73 code = 82064) CALC BUN/CREAT (test code = 4 RATIO [...] (test code = 2219) 24 U/L LIPID [id number] 00:00:00 Test Item Value Reference Range Interpretation Comments CHOLESTEROL (test code = 2210) 335 MG/DL TRIGLYCERIDES (test code = 2232) 446 MG/DL HDL CHOLESTEROL (test code = 73 MG/DL 2219) CALC LDL CHOL (test code = 2237) (NOTE) MG/DL RISK RATIO LDL/HDL (test code = (NOTE) RATIO 2238) [id number] 00:00:00 Test Item Value Reference Range Interpretation Comments TSH, THIRD GENERATION (test >100.000 UIU/ML code = 2821) [id number] 00:00:00 Test Item Value Reference Range Interpretation Comments TSH, THIRD GENERATION (test >100.000 UIU/ML code = 2821) CBC W/AUTO [id number] 00:00:00 Test Item Value Reference Range Interpretation [...] code = 1015) 298 K/UL CBC W/AUTO [id number] 00:00:00 Test Item Value Reference Range Interpretation [...] code = 1015) 298 K/UL CBC W/AUTO [id number] 00:00:00 Test Item Value Reference Range Interpretation [...] code = 1015) 298 K/UL COMPREHENSIVE METABOLIC [id number] 00:00:00 Test Item Value Reference Range Interpretation Comments GLUCOSE (test code = 2217) 228 MG/DL BUN (test code = 2208) 23 MG/DL CREATININE (test code = 2214) 5.99 MG/DL eGFR AMER. (test code 11 ML/MIN/1.73 = 26260) eGFR NON- AMER. (test 10 ML/MIN/1.73 code = 16526) CALC BUN/CREAT (test code = 4 RATIO [...] code = 2219) 24 U/L COMPREHENSIVE METABOLIC [id number] 00:00:00 Test Item Value Reference Range Interpretation Comments GLUCOSE (test code = 2217) 228 MG/DL BUN (test code = 2208) 23 MG/DL CREATININE (test code = 2214) 5.99 MG/DL eGFR AMER. (test code 11 ML/MIN/1.73 = 65036) eGFR NON- AMER. (test 10 ML/MIN/1.73 code = 52415) CALC BUN/CREAT (test code = 4 RATIO [...] (test code = 2219) 24 U/L LIPID [id number] 00:00:00 Test Item Value Reference Range Interpretation Comments CHOLESTEROL (test code = 2210) 335 MG/DL TRIGLYCERIDES (test code = 2232) 446 MG/DL HDL CHOLESTEROL (test code = 73 MG/DL 2220) CALC LDL CHOL (test code = 2237) (NOTE) MG/DL RISK RATIO LDL/HDL (test code = (NOTE) RATIO 2238) LIPID [id number] 00:00:00 Test Item Value Reference Range Interpretation Comments CHOLESTEROL (test code = 2210) 335 MG/DL TRIGLYCERIDES (test code = 2232) 446 MG/DL HDL CHOLESTEROL (test code = 73 MG/DL 2220) CALC LDL CHOL (test code = 2237) (NOTE) MG/DL RISK RATIO LDL/HDL (test code = (NOTE) RATIO 2238) [id number] 00:00:00 Test Item Value Reference Range Interpretation Comments TSH, THIRD GENERATION (test >100.000 UIU/ML code = 2821) [id number] 00:00:00 Test Item Value Reference Range Interpretation Comments TSH, THIRD GENERATION (test >100.000 UIU/ML code = 2821) [id number] 00:00:00 Test Item Value Reference Range Interpretation Comments TSH, THIRD GENERATION (test >100.000 UIU/ML code = 2821) CBC W/AUTO [id number] 00:00:00 Test Item Value Reference Range Interpretation [...] code = 1015) 298 K/UL CBC W/AUTO [id number] 00:00:00 Test Item Value Reference Range Interpretation [...] code = 1015) 298 K/UL CBC W/AUTO [id number] 00:00:00 Test Item Value Reference Range Interpretation [...] code = 1015) 298 K/UL COMPREHENSIVE METABOLIC [id number] 00:00:00 Test Item Value Reference Range Interpretation Comments GLUCOSE (test code = 2217) 228 MG/DL BUN (test code = 2208) 23 MG/DL CREATININE (test code = 2214) 5.99 MG/DL eGFR AMER. (test code 11 ML/MIN/1.73 = 37553) eGFR NON- AMER. (test 10 ML/MIN/1.73 code = 13139) CALC BUN/CREAT (test code = 4 RATIO [...] code = 2219) 24 U/L COMPREHENSIVE METABOLIC [id number] 00:00:00 Test Item Value Reference Range Interpretation Comments GLUCOSE (test code = 2217) 228 MG/DL BUN (test code = 2208) 23 MG/DL CREATININE (test code = 2214) 5.99 MG/DL eGFR AMER. (test code 11 ML/MIN/1.73 = 82050) eGFR NON- AMER. (test 10 ML/MIN/1.73 code = 61072) CALC BUN/CREAT (test code = 4 RATIO [...] (test code = 2219) 24 U/L LIPID [id number] 00:00:00 Test Item Value Reference Range Interpretation Comments CHOLESTEROL (test code = 2210) 335 MG/DL TRIGLYCERIDES (test code = 2232) 446 MG/DL HDL CHOLESTEROL (test code = 73 MG/DL 2219) CALC LDL CHOL (test code = 2237) (NOTE) MG/DL RISK RATIO LDL/HDL (test code = (NOTE) RATIO 2238) LIPID [id number] 00:00:00 Test Item Value Reference Range Interpretation Comments CHOLESTEROL (test code = 2210) 335 MG/DL TRIGLYCERIDES (test code = 2232) 446 MG/DL HDL CHOLESTEROL (test code = 73 MG/DL 2220) CALC LDL CHOL (test code = 2237) (NOTE) MG/DL RISK RATIO LDL/HDL (test code = (NOTE) RATIO 2238) [id number] 00:00:00 Test Item Value Reference Range Interpretation Comments TSH, THIRD GENERATION (test >100.000 UIU/ML code = 2821) [id number] 00:00:00 Test Item Value Reference Range Interpretation Comments TSH, THIRD GENERATION (test >100.000 UIU/ML code = 2821) [id number] 00:00:00 Test Item Value Reference Range Interpretation Comments TSH, THIRD GENERATION (test >100.000 UIU/ML code = 2821) CBC W/AUTO [id number] 00:00:00 Test Item Value Reference Range Interpretation [...] code = 1015) 298 K/UL CBC W/AUTO [id number] 00:00:00 Test Item Value Reference Range Interpretation [...] code = 1015) 298 K/UL CBC W/AUTO [id number] 00:00:00 Test Item Value Reference Range Interpretation [...] code = 1015) 298 K/UL COMPREHENSIVE METABOLIC [id number] 00:00:00 Test Item Value Reference Range Interpretation Comments GLUCOSE (test code = 2217) 228 MG/DL BUN (test code = 2208) 23 MG/DL CREATININE (test code = 2214) 5.99 MG/DL eGFR AMER. (test code 11 ML/MIN/1.73 = 25447) eGFR NON- AMER. (test 10 ML/MIN/1.73 code = 13758) CALC BUN/CREAT (test code = 4 RATIO [...] code = 2219) 24 U/L COMPREHENSIVE METABOLIC [id number] 00:00:00 Test Item Value Reference Range Interpretation Comments GLUCOSE (test code = 2217) 228 MG/DL BUN (test code = 2208) 23 MG/DL CREATININE (test code = 2214) 5.99 MG/DL eGFR AMER. (test code 11 ML/MIN/1.73 = 98637) eGFR NON- AMER. (test 10 ML/MIN/1.73 code = 93418) CALC BUN/CREAT (test code = 4 RATIO [...] (test code = 2219) 24 U/L LIPID [id number] 00:00:00 Test Item Value Reference Range Interpretation Comments CHOLESTEROL (test code = 2210) 335 MG/DL TRIGLYCERIDES (test code = 2232) 446 MG/DL HDL CHOLESTEROL (test code = 73 MG/DL 2220) CALC LDL CHOL (test code = 2237) (NOTE) MG/DL RISK RATIO LDL/HDL (test code = (NOTE) RATIO 2238) LIPID [id number] 00:00:00 Test Item Value Reference Range Interpretation Comments CHOLESTEROL (test code = 2210) 335 MG/DL TRIGLYCERIDES (test code = 2232) 446 MG/DL HDL CHOLESTEROL (test code = 73 MG/DL 2220) CALC LDL CHOL (test code = 2237) (NOTE) MG/DL RISK RATIO LDL/HDL (test code = (NOTE) RATIO 2238) [id number] 00:00:00 Test Item Value Reference Range Interpretation Comments TSH, THIRD GENERATION (test >100.000 UIU/ML code = 2821) [id number] 00:00:00 Test Item Value Reference Range Interpretation Comments TSH, THIRD GENERATION (test >100.000 UIU/ML code = 2821) [id number] 00:00:00 Test Item Value Reference Range Interpretation Comments TSH, THIRD GENERATION (test >100.000 UIU/ML code = 2821) CBC W/AUTO [id number] 00:00:00 Test Item Value Reference Range Interpretation [...] code = 1015) 298 K/UL CBC W/AUTO [id number] 00:00:00 Test Item Value Reference Range Interpretation [...] code = 1015) 298 K/UL CBC W/AUTO [id number] 00:00:00 Test Item Value Reference Range Interpretation [...] code = 1015) 298 K/UL COMPREHENSIVE METABOLIC [id number] 00:00:00 Test Item Value Reference Range Interpretation Comments GLUCOSE (test code = 2217) 228 MG/DL BUN (test code = 2208) 23 MG/DL CREATININE (test code = 2214) 5.99 MG/DL eGFR AMER. (test code 11 ML/MIN/1.73 = 40403) eGFR NON- AMER. (test 10 ML/MIN/1.73 code = 85948) CALC BUN/CREAT (test code = 4 RATIO [...] code = 2219) 24 U/L COMPREHENSIVE METABOLIC [id number] 00:00:00 Test Item Value Reference Range Interpretation Comments GLUCOSE (test code = 2217) 228 MG/DL BUN (test code = 2208) 23 MG/DL CREATININE (test code = 2214) 5.99 MG/DL eGFR AMER. (test code 11 ML/MIN/1.73 = 43111) eGFR NON- AMER. (test 10 ML/MIN/1.73 code = 82204) CALC BUN/CREAT (test code = 4 RATIO [...] (test code = 2219) 24 U/L LIPID [id number] 00:00:00 Test Item Value Reference Range Interpretation Comments CHOLESTEROL (test code = 2210) 335 MG/DL TRIGLYCERIDES (test code = 2232) 446 MG/DL HDL CHOLESTEROL (test code = 73 MG/DL 2220) CALC LDL CHOL (test code = 2237) (NOTE) MG/DL RISK RATIO LDL/HDL (test code = (NOTE) RATIO 2238) LIPID [id number] 00:00:00 Test Item Value Reference Range Interpretation Comments CHOLESTEROL (test code = 2210) 335 MG/DL TRIGLYCERIDES (test code = 2232) 446 MG/DL HDL CHOLESTEROL (test code = 73 MG/DL 2220) CALC LDL CHOL (test code = 2237) (NOTE) MG/DL RISK RATIO LDL/HDL (test code = (NOTE) RATIO 2238) [id number] 00:00:00 Test Item Value Reference Range Interpretation Comments TSH, THIRD GENERATION (test >100.000 UIU/ML code = 2821) [id number] 00:00:00 Test Item Value Reference Range Interpretation Comments TSH, THIRD GENERATION (test >100.000 UIU/ML code = 2821) [id number] 00:00:00 Test Item Value Reference Range Interpretation Comments TSH, THIRD GENERATION (test >100.000 UIU/ML code = 2821) [id number] 00:00:00 Test Item Value Reference Range Interpretation Comments TSH, THIRD GENERATION (test >100.000 UIU/ML code = 2821) [id number] 00:00:00 Test Item Value Reference Range Interpretation Comments TSH, THIRD GENERATION (test >100.000 UIU/ML code = 2821) [id number] 00:00:00 Test Item Value Reference Range Interpretation Comments TSH, THIRD GENERATION (test >100.000 UIU/ML code = 2821) LIPID [id number] 00:00:00 Test Item Value Reference Range Interpretation Comments CHOLESTEROL (test code = 2210) 316 MG/DL TRIGLYCERIDES (test code = 2232) 547 MG/DL HDL CHOLESTEROL (test code = 54 MG/DL 2220) CALC LDL CHOL (test code = 2237) (NOTE) MG/DL RISK RATIO LDL/HDL (test code = (NOTE) RATIO 2238) LIPID [id number] 00:00:00 Test Item Value Reference Range Interpretation Comments CHOLESTEROL (test code = 2210) 316 MG/DL TRIGLYCERIDES (test code = 2232) 547 MG/DL HDL CHOLESTEROL (test code = 54 MG/DL 2220) CALC LDL CHOL (test code = 2237) (NOTE) MG/DL RISK RATIO LDL/HDL (test code = (NOTE) RATIO 2238) [id number] 00:00:00 Test Item Value Reference Range Interpretation Comments TSH, THIRD GENERATION (test >100.000 UIU/ML code = 2821) [id number] 00:00:00 Test Item Value Reference Range Interpretation Comments TSH, THIRD GENERATION (test >100.000 UIU/ML code = 2821) [id number] 00:00:00 Test Item Value Reference Range Interpretation Comments TSH, THIRD GENERATION (test >100.000 UIU/ML code = 2821) LIPID [id number] 00:00:00 Test Item Value Reference Range Interpretation Comments CHOLESTEROL (test code = 2210) 316 MG/DL TRIGLYCERIDES (test code = 2232) 547 MG/DL HDL CHOLESTEROL (test code = 54 MG/DL 2220) CALC LDL CHOL (test code = 2237) (NOTE) MG/DL RISK RATIO LDL/HDL (test code = (NOTE) RATIO 2238) LIPID [id number] 00:00:00 Test Item Value Reference Range Interpretation Comments CHOLESTEROL (test code = 2210) 316 MG/DL TRIGLYCERIDES (test code = 2232) 547 MG/DL HDL CHOLESTEROL (test code = 54 MG/DL 2220) CALC LDL CHOL (test code = 2237) (NOTE) MG/DL RISK RATIO LDL/HDL (test code = (NOTE) RATIO 2238) [id number] 00:00:00 Test Item Value Reference Range Interpretation Comments TSH, THIRD GENERATION (test >100.000 UIU/ML code = 2821) [id number] 00:00:00 Test Item Value Reference Range Interpretation Comments TSH, THIRD GENERATION (test >100.000 UIU/ML code = 2821) [id number] 00:00:00 Test Item Value Reference Range Interpretation Comments TSH, THIRD GENERATION (test >100.000 UIU/ML code = 2821) [id number] 00:00:00 Test Item Value Reference Range Interpretation Comments TSH, THIRD GENERATION (test >100.000 UIU/ML code = 2821) LIPID [id number] 00:00:00 Test Item Value Reference Range Interpretation Comments CHOLESTEROL (test code = 2210) 316 MG/DL TRIGLYCERIDES (test code = 2232) 547 MG/DL HDL CHOLESTEROL (test code = 54 MG/DL 2220) CALC LDL CHOL (test code = 2237) (NOTE) MG/DL RISK RATIO LDL/HDL (test code = (NOTE) RATIO 2238) LIPID [id number] 00:00:00 Test Item Value Reference Range Interpretation Comments CHOLESTEROL (test code = 2210) 316 MG/DL TRIGLYCERIDES (test code = 2232) 547 MG/DL HDL CHOLESTEROL (test code = 54 MG/DL 2220) CALC LDL CHOL (test code = 2237) (NOTE) MG/DL RISK RATIO LDL/HDL (test code = (NOTE) RATIO 2238) [id number] 00:00:00 Test Item Value Reference Range Interpretation Comments TSH, THIRD GENERATION (test >100.000 UIU/ML code = 2821) LIPID [id number] 00:00:00 Test Item Value Reference Range Interpretation Comments CHOLESTEROL (test code = 2210) 316 MG/DL TRIGLYCERIDES (test code = 2232) 547 MG/DL HDL CHOLESTEROL (test code = 54 MG/DL 2220) CALC LDL CHOL (test code = 2237) (NOTE) MG/DL RISK RATIO LDL/HDL (test code = (NOTE) RATIO 2238) [id number] 00:00:00 Test Item Value Reference Range Interpretation Comments TSH, THIRD GENERATION (test >100.000 UIU/ML code = 2821) [id number] 00:00:00 Test Item Value Reference Range Interpretation Comments TSH, THIRD GENERATION (test >100.000 UIU/ML code = 2821) [id number] 00:00:00 Test Item Value Reference Range Interpretation Comments TSH, THIRD GENERATION (test >100.000 UIU/ML code = 2821) LIPID [id number] 00:00:00 Test Item Value Reference Range Interpretation Comments CHOLESTEROL (test code = 2210) 316 MG/DL TRIGLYCERIDES (test code = 2232) 547 MG/DL HDL CHOLESTEROL (test code = 54 MG/DL 2220) CALC LDL CHOL (test code = 2237) (NOTE) MG/DL RISK RATIO LDL/HDL (test code = (NOTE) RATIO 2238) LIPID [id number] 00:00:00 Test Item Value Reference Range Interpretation Comments CHOLESTEROL (test code = 2210) 316 MG/DL TRIGLYCERIDES (test code = 2232) 547 MG/DL HDL CHOLESTEROL (test code = 54 MG/DL 2220) CALC LDL CHOL (test code = 2237) (NOTE) MG/DL RISK RATIO LDL/HDL (test code = (NOTE) RATIO 2238) [id number] 00:00:00 Test Item Value Reference Range Interpretation Comments TSH, THIRD GENERATION (test >100.000 UIU/ML code = 2821) [id number] 00:00:00 Test Item Value Reference Range Interpretation Comments TSH, THIRD GENERATION (test >100.000 UIU/ML code = 2821) [id number] 00:00:00 Test Item Value Reference Range Interpretation Comments TSH, THIRD GENERATION (test >100.000 UIU/ML code = 2821) LIPID [id number] 00:00:00 Test Item Value Reference Range Interpretation Comments CHOLESTEROL (test code = 2210) 316 MG/DL TRIGLYCERIDES (test code = 2232) 547 MG/DL HDL CHOLESTEROL (test code = 54 MG/DL 2220) CALC LDL CHOL (test code = 2237) (NOTE) MG/DL RISK RATIO LDL/HDL (test code = (NOTE) RATIO 2238) LIPID [id number] 00:00:00 Test Item Value Reference Range Interpretation Comments CHOLESTEROL (test code = 2210) 316 MG/DL TRIGLYCERIDES (test code = 2232) 547 MG/DL HDL CHOLESTEROL (test code = 54 MG/DL 2220) CALC LDL CHOL (test code = 2237) (NOTE) MG/DL RISK RATIO LDL/HDL (test code = (NOTE) RATIO 2238) [id number] 00:00:00 Test Item Value Reference Range Interpretation Comments TSH, THIRD GENERATION (test >100.000 UIU/ML code = 2821) [id number] 00:00:00 Test Item Value Reference Range Interpretation Comments TSH, THIRD GENERATION (test >100.000 UIU/ML code = 2821) [id number] 00:00:00 Test Item Value Reference Range Interpretation Comments TSH, THIRD GENERATION (test >100.000 UIU/ML code = 2821) LIPID [id number] 00:00:00 Test Item Value Reference Range Interpretation Comments CHOLESTEROL (test code = 2210) 316 MG/DL TRIGLYCERIDES (test code = 2232) 547 MG/DL HDL CHOLESTEROL (test code = 54 MG/DL 2220) CALC LDL CHOL (test code = 2237) (NOTE) MG/DL RISK RATIO LDL/HDL (test code = (NOTE) RATIO 2238) LIPID [id number] 00:00:00 Test Item Value Reference Range Interpretation Comments CHOLESTEROL (test code = 2210) 316 MG/DL TRIGLYCERIDES (test code = 2232) 547 MG/DL HDL CHOLESTEROL (test code = 54 MG/DL 2220) CALC LDL CHOL (test code = 2237) (NOTE) MG/DL RISK RATIO LDL/HDL (test code = (NOTE) RATIO 2238) [id number] 00:00:00 Test Item Value Reference Range Interpretation Comments TSH, THIRD GENERATION (test >100.000 UIU/ML code = 2821) [id number] 00:00:00 Test Item Value Reference Range Interpretation Comments TSH, THIRD GENERATION (test >100.000 UIU/ML code = 2821) [id number] 00:00:00 Test Item Value Reference Range Interpretation Comments TSH, THIRD GENERATION (test >100.000 UIU/ML code = 2821) LIPID [id number] 00:00:00 Test Item Value Reference Range Interpretation Comments CHOLESTEROL (test code = 2210) 316 MG/DL TRIGLYCERIDES (test code = 2232) 547 MG/DL HDL CHOLESTEROL (test code = 54 MG/DL 2220) CALC LDL CHOL (test code = 2237) (NOTE) MG/DL RISK RATIO LDL/HDL (test code = (NOTE) RATIO 2238) LIPID [id number] 00:00:00 Test Item Value Reference Range Interpretation [...] code = Normal 762) HEPATITIS B SURFACE [id number] 09:48:00 Test Item Value Reference Range Interpretation [...] (BEAKER) (test code = 1+ few 966) [id number] 05:55:00 Test Item Value Reference Range Interpretation Comments PHOSPHORUS (BEAKER) (test code = 9.2 mg/dL 2.3-4.7 HH 604) [employer] Officer And [employer] Instructor ID - RA MBASIC METABOLIC [id number] 05:04:00 Test Item Value Reference Range Interpretation [...] S NOT APPLICABLE FOR DIALYSIS PATIEN TS. First Officer And Flight Instructor ID - RA MCBC WITH PLATELET COUNT + MANUAL [id number] 04:42:00 Test Item Value Reference Range Interpretation [...] (BEAKER) (test code = 413) BASIC METABOLIC [id number] 03:00:00 Test Item Value Reference Range Interpretation [...] S NOT APPLICABLE FOR DIALYSIS PATIEN TS. First Officer And Flight Instructor ID - RA [id number] 02:58:00 Test Item Value Reference Range Interpretation Comments PHOSPHORUS (BEAKER) (test code = 7.4 mg/dL 2.3-4.7 H 604) First Officer And Flight Instructor ID - RA MCBC W/PLT COUNT & AUTO [id number] 02:38:00 Test Item Value Reference Range Interpretation [...] PERCENT (BEAKER) (test code = 2801) SARS-COV2/RT-PCR ([facility])2019-12-14 11:10:00 Test Item Value Reference Range Interpretation Comments SARS-COV2/RT-PCR (test code Negative Not Detected, Negative, = 8644640) See external report for linked test SARS-COV-2 PERFORMING LAB [facility] (test code = 6693606) Negative results do not preclude SARS-CoV-2 infection [...] of the Act.Fact Sheet for Healthcare Pro viders:https://www.Qitio/Documents/Xpert%20Xpress%20SARS%20CoV-2/Fact%20Sh eets/3023802%87IMMF-WVO-4%20HEALTHCARE%20PROVIDERS%20FACT%20SHEET.pdfFact Sheet for Healthcare Patients:[email or web address]://[email or web address].Bactest/Documents/Xpert%20Xpress%20SARS%20CoV-2/Fact%20Sheets/3023801%20SARS-COV -2%20PATIENT%20FACT%20SHEET.pdfPerforming Laboratory:[facility], [place] [address]EFYIF METABOLIC [id number] 09:53:00 Test Item Value Reference Range Interpretation [...] S NOT APPLICABLE FOR DIALYSIS PATIEN TS. First Officer And Flight Instructor ID - ROSIANGPROTHROMBIN [id number] 09:39:00 Test Item Value Reference Range Interpretation [...] 0-0 (BEAKER) (test code = 413) URINE [id number] 11:01:00 Test Item Value Reference Range Interpretation Comments CULTURE (BEAKER) ENTEROCOCCUS A 40-49,000 c ol/mL (test code = 1095) FAECALIS Enterococ cus faecalis Ampicillin (test S code = 26) Linezolid (test code S = 40) Nitrofurantoin (test S code = 23) Tetracycline (test R code = 2) Vancomycin (test S code = 13) <10,000 col/mL skin floraHEMOGLOBIN [id number] 00:00:00 Test Item Value Reference Range Interpretation Comments HEMOGLOBIN A1c (test code = 60015) 6.9 % HEMOGLOBIN [id number] 00:00:00 Test Item Value Reference Range Interpretation Comments HEMOGLOBIN A1c (test code = 40398) 6.9 % HEMOGLOBIN [id number] 00:00:00 Test Item Value Reference Range Interpretation Comments HEMOGLOBIN A1c (test code = 39548) 6.9 % LIPID [id number] 00:00:00 Test Item Value Reference Range Interpretation Comments CHOLESTEROL (test code = 2210) 309 MG/DL TRIGLYCERIDES (test code = 2232) 587 MG/DL HDL CHOLESTEROL (test code = 48 MG/DL 2220) CALC LDL CHOL (test code = 2237) (NOTE) MG/DL RISK RATIO LDL/HDL (test code = (NOTE) RATIO 2238) LIPID [id number] 00:00:00 Test Item Value Reference Range Interpretation [...] THYROX. BIND. CAPAC. (test 1.5 code = 00506) T4 (THYROXINE) (test code = <1.2 UG/DL 2819) CORRECTED T4 (FTI) (test code (NOTE) UG/DL = 2820) TSH, THIRD GENERATION (test >100.000 UIU/ML code = 2821) THYROID II PROFILE (TU,T4,FTI,TSH) [ADDED][id number] 00:00:00 Test Item Value Reference Range Interpretation Comments T-UPTAKE (test code = 2817) 18.4 % THYROX. BIND. CAPAC. (test 1.5 code = 58980) T4 (THYROXINE) (test code = <1.2 UG/DL 2819) CORRECTED T4 (FTI) (test code (NOTE) UG/DL = 2820) TSH, THIRD GENERATION (test >100.000 UIU/ML code = 2821) HEMOGLOBIN [id number] 00:00:00 Test Item Value Reference Range Interpretation Comments HEMOGLOBIN A1c (test code = 65167) 6.9 % HEMOGLOBIN [id number] 00:00:00 Test Item Value Reference Range Interpretation Comments HEMOGLOBIN A1c (test code = 95748) 6.9 % HEMOGLOBIN [id number] 00:00:00 Test Item Value Reference Range Interpretation Comments HEMOGLOBIN A1c (test code = 40643) 6.9 % LIPID [id number] 00:00:00 Test Item Value Reference Range Interpretation Comments CHOLESTEROL (test code = 2210) 309 MG/DL TRIGLYCERIDES (test code = 2232) 587 MG/DL HDL CHOLESTEROL (test code = 48 MG/DL 2220) CALC LDL CHOL (test code = 2237) (NOTE) MG/DL RISK RATIO LDL/HDL (test code = (NOTE) RATIO 2238) LIPID [id number] 00:00:00 Test Item Value Reference Range Interpretation [...] THYROX. BIND. CAPAC. (test 1.5 code = 00429) T4 (THYROXINE) (test code = <1.2 UG/DL 2819) CORRECTED T4 (FTI) (test code (NOTE) UG/DL = 2820) TSH, THIRD GENERATION (test >100.000 UIU/ML code = 2821) THYROID II PROFILE (TU,T4,FTI,TSH) [ADDED]2019-10-26 00:00:00 Test Item Value Reference Range Interpretation Comments T-UPTAKE (test code = 2817) 18.4 % THYROX. BIND. CAPAC. (test 1.5 code = 08641) T4 (THYROXINE) (test code = <1.2 UG/DL 2819) CORRECTED T4 (FTI) (test code (NOTE) UG/DL = 2820) TSH, THIRD GENERATION (test >100.000 UIU/ML code = 2821) HEMOGLOBIN [id number] 00:00:00 Test Item Value Reference Range Interpretation Comments HEMOGLOBIN A1c (test code = 38600) 6.9 % HEMOGLOBIN [id number] 00:00:00 Test Item Value Reference Range Interpretation Comments HEMOGLOBIN A1c (test code = 26784) 6.9 % HEMOGLOBIN [id number] 00:00:00 Test Item Value Reference Range Interpretation Comments HEMOGLOBIN A1c (test code = 66272) 6.9 % HEMOGLOBIN [id number] 00:00:00 Test Item Value Reference Range Interpretation Comments HEMOGLOBIN A1c (test code = 90710) 6.9 % HEMOGLOBIN [id number] 00:00:00 Test Item Value Reference Range Interpretation Comments HEMOGLOBIN A1c (test code = 65389) 6.9 % LIPID [id number] 00:00:00 Test Item Value Reference Range Interpretation Comments CHOLESTEROL (test code = 2210) 309 MG/DL TRIGLYCERIDES (test code = 2232) 587 MG/DL HDL CHOLESTEROL (test code = 48 MG/DL 2220) CALC LDL CHOL (test code = 2237) (NOTE) MG/DL RISK RATIO LDL/HDL (test code = (NOTE) RATIO 2238) LIPID [id number] 00:00:00 Test Item Value Reference Range Interpretation [...] THYROX. BIND. CAPAC. (test 1.5 code = 67178) T4 (THYROXINE) (test code = <1.2 UG/DL 2819) CORRECTED T4 (FTI) (test code (NOTE) UG/DL = 2820) TSH, THIRD GENERATION (test >100.000 UIU/ML code = 2821) THYROID II PROFILE (TU,T4,FTI,TSH) [ADDED]2019-10-26 00:00:00 Test Item Value Reference Range Interpretation Comments T-UPTAKE (test code = 2817) 18.4 % THYROX. BIND. CAPAC. (test 1.5 code = 25669) T4 (THYROXINE) (test code = <1.2 UG/DL 2819) CORRECTED T4 (FTI) (test code (NOTE) UG/DL = 2820) TSH, THIRD GENERATION (test >100.000 UIU/ML code = 2821) LIPID [id number] 00:00:00 Test Item Value Reference Range Interpretation [...] THYROX. BIND. CAPAC. (test 1.5 code = 84466) T4 (THYROXINE) (test code = <1.2 UG/DL 2819) CORRECTED T4 (FTI) (test code (NOTE) UG/DL = 2820) TSH, THIRD GENERATION (test >100.000 UIU/ML code = 2821) HEMOGLOBIN [id number] 00:00:00 Test Item Value Reference Range Interpretation Comments HEMOGLOBIN A1c (test code = 16743) 6.9 % HEMOGLOBIN [id number] 00:00:00 Test Item Value Reference Range Interpretation Comments HEMOGLOBIN A1c (test code = 03427) 6.9 % HEMOGLOBIN [id number] 00:00:00 Test Item Value Reference Range Interpretation Comments HEMOGLOBIN A1c (test code = 39652) 6.9 % LIPID [id number] 00:00:00 Test Item Value Reference Range Interpretation Comments CHOLESTEROL (test code = 2210) 309 MG/DL TRIGLYCERIDES (test code = 2232) 587 MG/DL HDL CHOLESTEROL (test code = 48 MG/DL 2220) CALC LDL CHOL (test code = 2237) (NOTE) MG/DL RISK RATIO LDL/HDL (test code = (NOTE) RATIO 2238) LIPID [id number] 00:00:00 Test Item Value Reference Range Interpretation [...] THYROX. BIND. CAPAC. (test 1.5 code = 44529) T4 (THYROXINE) (test code = <1.2 UG/DL 2819) CORRECTED T4 (FTI) (test code (NOTE) UG/DL = 2820) TSH, THIRD GENERATION (test >100.000 UIU/ML code = 2821) THYROID II PROFILE (TU,T4,FTI,TSH) [ADDED]2019-10-26 00:00:00 Test Item Value Reference Range Interpretation Comments T-UPTAKE (test code = 2817) 18.4 % THYROX. BIND. CAPAC. (test 1.5 code = 19761) T4 (THYROXINE) (test code = <1.2 UG/DL 2819) CORRECTED T4 (FTI) (test code (NOTE) UG/DL = 2820) TSH, THIRD GENERATION (test >100.000 UIU/ML code = 2821) HEMOGLOBIN [id number] 00:00:00 Test Item Value Reference Range Interpretation Comments HEMOGLOBIN A1c (test code = 09873) 6.9 % HEMOGLOBIN [id number] 00:00:00 Test Item Value Reference Range Interpretation Comments HEMOGLOBIN A1c (test code = 97040) 6.9 % HEMOGLOBIN [id number] 00:00:00 Test Item Value Reference Range Interpretation Comments HEMOGLOBIN A1c (test code = 60708) 6.9 % LIPID [id number] 00:00:00 Test Item Value Reference Range Interpretation Comments CHOLESTEROL (test code = 2210) 309 MG/DL TRIGLYCERIDES (test code = 2232) 587 MG/DL HDL CHOLESTEROL (test code = 48 MG/DL 2220) CALC LDL CHOL (test code = 2237) (NOTE) MG/DL RISK RATIO LDL/HDL (test code = (NOTE) RATIO 2238) LIPID [id number] 00:00:00 Test Item Value Reference Range Interpretation [...] THYROX. BIND. CAPAC. (test 1.5 code = 53059) T4 (THYROXINE) (test code = <1.2 UG/DL 2819) CORRECTED T4 (FTI) (test code (NOTE) UG/DL = 2820) TSH, THIRD GENERATION (test >100.000 UIU/ML code = 2821) THYROID II PROFILE (TU,T4,FTI,TSH) [ADDED]2019-10-26 00:00:00 Test Item Value Reference Range Interpretation Comments T-UPTAKE (test code = 2817) 18.4 % THYROX. BIND. CAPAC. (test 1.5 code = 92982) T4 (THYROXINE) (test code = <1.2 UG/DL 2819) CORRECTED T4 (FTI) (test code (NOTE) UG/DL = 2820) TSH, THIRD GENERATION (test >100.000 UIU/ML code = 2821) HEMOGLOBIN [id number] 00:00:00 Test Item Value Reference Range Interpretation Comments HEMOGLOBIN A1c (test code = 00848) 6.9 % HEMOGLOBIN [id number] 00:00:00 Test Item Value Reference Range Interpretation Comments HEMOGLOBIN A1c (test code = 18065) 6.9 % HEMOGLOBIN [id number] 00:00:00 Test Item Value Reference Range Interpretation Comments HEMOGLOBIN A1c (test code = 39428) 6.9 % LIPID [id number] 00:00:00 Test Item Value Reference Range Interpretation Comments CHOLESTEROL (test code = 2210) 309 MG/DL TRIGLYCERIDES (test code = 2232) 587 MG/DL HDL CHOLESTEROL (test code = 48 MG/DL 2220) CALC LDL CHOL (test code = 2237) (NOTE) MG/DL RISK RATIO LDL/HDL (test code = (NOTE) RATIO 2238) LIPID [id number] 00:00:00 Test Item Value Reference Range Interpretation [...] THYROX. BIND. CAPAC. (test 1.5 code = 84402) T4 (THYROXINE) (test code = <1.2 UG/DL 2819) CORRECTED T4 (FTI) (test code (NOTE) UG/DL = 2820) TSH, THIRD GENERATION (test >100.000 UIU/ML code = 2821) THYROID II PROFILE (TU,T4,FTI,TSH) [ADDED]2019-10-26 00:00:00 Test Item Value Reference Range Interpretation Comments T-UPTAKE (test code = 2817) 18.4 % THYROX. BIND. CAPAC. (test 1.5 code = 84720) T4 (THYROXINE) (test code = <1.2 UG/DL 2819) CORRECTED T4 (FTI) (test code (NOTE) UG/DL = 2820) TSH, THIRD GENERATION (test >100.000 UIU/ML code = 2821) HEMOGLOBIN [id number] 00:00:00 Test Item Value Reference Range Interpretation Comments HEMOGLOBIN A1c (test code = 15570) 6.9 % HEMOGLOBIN [id number] 00:00:00 Test Item Value Reference Range Interpretation Comments HEMOGLOBIN A1c (test code = 37281) 6.9 % HEMOGLOBIN [id number] 00:00:00 Test Item Value Reference Range Interpretation Comments HEMOGLOBIN A1c (test code = 72501) 6.9 % LIPID [id number] 00:00:00 Test Item Value Reference Range Interpretation Comments CHOLESTEROL (test code = 2210) 309 MG/DL TRIGLYCERIDES (test code = 2232) 587 MG/DL HDL CHOLESTEROL (test code = 48 MG/DL 2220) CALC LDL CHOL (test code = 2237) (NOTE) MG/DL RISK RATIO LDL/HDL (test code = (NOTE) RATIO 2238) LIPID [id number] 00:00:00 Test Item Value Reference Range Interpretation [...] THYROX. BIND. CAPAC. (test 1.5 code = 20771) T4 (THYROXINE) (test code = <1.2 UG/DL 2819) CORRECTED T4 (FTI) (test code (NOTE) UG/DL = 2820) TSH, THIRD GENERATION (test >100.000 UIU/ML code = 2821) THYROID II PROFILE (TU,T4,FTI,TSH) [ADDED]2019-10-26 00:00:00 Test Item Value Reference Range Interpretation Comments T-UPTAKE (test code = 2817) 18.4 % THYROX. BIND. CAPAC. (test 1.5 code = 59170) T4 (THYROXINE) (test code = <1.2 UG/DL 2819) CORRECTED T4 (FTI) (test code (NOTE) UG/DL = 2820) TSH, THIRD GENERATION (test >100.000 UIU/ML code = 2821) HEMOGLOBIN [id number] 09:52:00 Test Item Value Reference Range Interpretation Comments HEMOGLOBIN A1C (BEAKER) (test code = 6.6 % 4.3-6.1 H 368) [employer] ID - [id number] 09:08:00 Test Item Value Reference Range Interpretation Comments PROSTATE SPECIFIC ANTIGEN (BEAKER) 0.5 ng/mL 0.0-4.0 (test code = 844) [employer] ID - PITER CIARAID [id number] 08:00:00 Test Item Value Reference Range Interpretation [...] Borderline 130-159 High 160-189 Very High >=190 [employer] Instructor ID - SIMONE CTHYROID II PROFILE (T3U, T4, T7, TSH)2019-07-05 00:00:00 Test Item Value Reference Range Interpretation Comments T-UPTAKE (test code = 2817) 24.3 % THYROX. BIND. CAPAC. (test 1.3 code = 03873) T4 (THYROXINE) (test code = 3.6 UG/DL 2819) CORRECTED T4 (FTI) (test code 2.8 UG/DL = 2820) TSH, THIRD GENERATION (test >100.000 UIU/ML code = 2821) THYROID II PROFILE (T3U, T4, T7, TSH)2019-07-05 00:00:00 Test Item Value Reference Range Interpretation Comments T-UPTAKE (test code = 2817) 24.3 % THYROX. BIND. CAPAC. (test 1.3 code = 36908) T4 (THYROXINE) (test code = 3.6 UG/DL 2819) CORRECTED T4 (FTI) (test code 2.8 UG/DL = 2820) TSH, THIRD GENERATION (test >100.000 UIU/ML code = 2821) THYROID II PROFILE (T3U, T4, T7, TSH)2019-07-05 00:00:00 Test Item Value Reference Range Interpretation Comments T-UPTAKE (test code = 2817) 24.3 % THYROX. BIND. CAPAC. (test 1.3 code = 99804) T4 (THYROXINE) (test code = 3.6 UG/DL 2819) CORRECTED T4 (FTI) (test code 2.8 UG/DL = 2820) TSH, THIRD GENERATION (test >100.000 UIU/ML code = 2821) THYROID II PROFILE (T3U, T4, T7, TSH)2019-07-05 00:00:00 Test Item Value Reference Range Interpretation Comments T-UPTAKE (test code = 2817) 24.3 % THYROX. BIND. CAPAC. (test 1.3 code = 37125) T4 (THYROXINE) (test code = 3.6 UG/DL 2819) CORRECTED T4 (FTI) (test code 2.8 UG/DL = 2820) TSH, THIRD GENERATION (test >100.000 UIU/ML code = 2821) THYROID II PROFILE (T3U, T4, T7, TSH)2019-07-05 00:00:00 Test Item Value Reference Range Interpretation Comments T-UPTAKE (test code = 2817) 24.3 % THYROX. BIND. CAPAC. (test 1.3 code = 12331) T4 (THYROXINE) (test code = 3.6 UG/DL 2819) CORRECTED T4 (FTI) (test code 2.8 UG/DL = 2820) TSH, THIRD GENERATION (test >100.000 UIU/ML code = 2821) THYROID II PROFILE (T3U, T4, T7, TSH)2019-07-05 00:00:00 Test Item Value Reference Range Interpretation Comments T-UPTAKE (test code = 2817) 24.3 % THYROX. BIND. CAPAC. (test 1.3 code = 04258) T4 (THYROXINE) (test code = 3.6 UG/DL 2819) CORRECTED T4 (FTI) (test code 2.8 UG/DL = 2820) TSH, THIRD GENERATION (test >100.000 UIU/ML code = 2821) THYROID II PROFILE (T3U, T4, T7, TSH)2019-07-05 00:00:00 Test Item Value Reference Range Interpretation Comments T-UPTAKE (test code = 2817) 24.3 % THYROX. BIND. CAPAC. (test 1.3 code = 59316) T4 (THYROXINE) (test code = 3.6 UG/DL 2819) CORRECTED T4 (FTI) (test code 2.8 UG/DL = 2820) TSH, THIRD GENERATION (test >100.000 UIU/ML code = 2821) THYROID II PROFILE (T3U, T4, T7, TSH)2019-07-05 00:00:00 Test Item Value Reference Range Interpretation Comments T-UPTAKE (test code = 2817) 24.3 % THYROX. BIND. CAPAC. (test 1.3 code = 57595) T4 (THYROXINE) (test code = 3.6 UG/DL 2819) CORRECTED T4 (FTI) (test code 2.8 UG/DL = 2820) TSH, THIRD GENERATION (test >100.000 UIU/ML code = 2821) THYROID II PROFILE (T3U, T4, T7, TSH)2019-07-05 00:00:00 Test Item Value Reference Range Interpretation Comments T-UPTAKE (test code = 2817) 24.3 % THYROX. BIND. CAPAC. (test 1.3 code = 08023) T4 (THYROXINE) (test code = 3.6 UG/DL 2819) CORRECTED T4 (FTI) (test code 2.8 UG/DL = 2820) TSH, THIRD GENERATION (test >100.000 UIU/ML code = 2821) THYROID II PROFILE (T3U, T4, T7, TSH)2019-07-05 00:00:00 Test Item Value Reference Range Interpretation Comments T-UPTAKE (test code = 2817) 24.3 % THYROX. BIND. CAPAC. (test 1.3 code = 83148) T4 (THYROXINE) (test code = 3.6 UG/DL 2819) CORRECTED T4 (FTI) (test code 2.8 UG/DL = 2820) TSH, THIRD GENERATION (test >100.000 UIU/ML code = 2821) THYROID II PROFILE (T3U, T4, T7, TSH)2019-07-05 00:00:00 Test Item Value Reference Range Interpretation Comments T-UPTAKE (test code = 2817) 24.3 % THYROX. BIND. CAPAC. (test 1.3 code = 31351) T4 (THYROXINE) (test code = 3.6 UG/DL 2819) CORRECTED T4 (FTI) (test code 2.8 UG/DL = 2820) TSH, THIRD GENERATION (test >100.000 UIU/ML code = 2821) THYROID II PROFILE (T3U, T4, T7, TSH)2019-07-05 00:00:00 Test Item Value Reference Range Interpretation Comments T-UPTAKE (test code = 2817) 24.3 % THYROX. BIND. CAPAC. (test 1.3 code = 47648) T4 (THYROXINE) (test code = 3.6 UG/DL 2819) CORRECTED T4 (FTI) (test code 2.8 UG/DL = 2820) TSH, THIRD GENERATION (test >100.000 UIU/ML code = 2821) THYROID II PROFILE (T3U, T4, T7, TSH)2019-07-05 00:00:00 Test Item Value Reference Range Interpretation Comments T-UPTAKE (test code = 2817) 24.3 % THYROX. BIND. CAPAC. (test 1.3 code = 99115) T4 (THYROXINE) (test code = 3.6 UG/DL 2819) CORRECTED T4 (FTI) (test code 2.8 UG/DL = 2820) TSH, THIRD GENERATION (test >100.000 UIU/ML code = 2821) THYROID II PROFILE (T3U, T4, T7, TSH)2019-07-05 00:00:00 Test Item Value Reference Range Interpretation Comments T-UPTAKE (test code = 2817) 24.3 % THYROX. BIND. CAPAC. (test 1.3 code = 83006) T4 (THYROXINE) (test code = 3.6 UG/DL 2819) CORRECTED T4 (FTI) (test code 2.8 UG/DL = 2820) TSH, THIRD GENERATION (test >100.000 UIU/ML code = 2821) THYROID II PROFILE (T3U, T4, T7, TSH)2019-07-05 00:00:00 Test Item Value Reference Range Interpretation Comments T-UPTAKE (test code = 2817) 24.3 % THYROX. BIND. CAPAC. (test 1.3 code = 99151) T4 (THYROXINE) (test code = 3.6 UG/DL 2819) CORRECTED T4 (FTI) (test code 2.8 UG/DL = 2820) TSH, THIRD GENERATION (test >100.000 UIU/ML code = 2821) URINE [id number] 14:35:00 Test Item Value Reference Range Interpretation Comments CULTURE (BEAKER) ENTEROCOCCUS A 10-19,000 c ol/mL (test code = 1095) FAECALIS Enterococ cus faecalis Ampicillin (test S code = 26) Levofloxacin (test S code = 22) Linezolid (test code S = 40) Nitrofurantoin (test S code = 23) Tetracycline (test R code = 2) Vancomycin (test S code = 13) 10-19,000 col/mL skin [id number] 10:31:00 Test Item Value Reference Range Interpretation Comments RPR SCREEN (BEAKER) (test code = Nonreactive Nonreactive 420) U/S, ABDOMINAL, [id number] 16:14:00Reason for Exam:->Kidney transplant evaluation; comment on [...] Phipps Verified Date/Time: 05/23/2019 16:14:42 Reading Location: [address] Radiology Reading Room RAD, CHEST, 2 [id number] 16:02:00Reason for Exam:->Pre kidney transplant evaluation.FINAL REPORT [...] Verified Date/Time: 05/23/2019 16:02:27 Reading Location: [address] Radiology Reading Room CYTOMEGALOVIRUS ANTIBODY, [id number] 15:17:00 Test Item Value Reference Range Interpretation Comments CYTOMEGALOVIRUS, IGG (BEAKER) Positive Negative, Equivocal A (test code = 3429) CMV IgG Result Interpretation: </= 0.8 Al Negative 0.9-1.0 Al Equivocal >/=1.1 Al PositiveCYTOMEGALOVIRUS ANTIBODY, [id number] 15:17:00 Test Item Value Reference Range Interpretation Comments CYTOMEGALOVIRUS IGM ANTIBODY Negative Negative, Equivocal (BEAKER) (test code = 3437) CMV IgM Result Interpretation: </= 0.8 Al Negative 0.9-1.0 Al Equivocal >/= 1.1 Al PositiveEBV ANTIBODY, [id number] 15:17:00 Test Item Value Reference Range Interpretation Comments NIHARIKA GRAYSON VIRAL CAPSID Positive Negative, Equivocal A ANTIGEN IGG (BEAKER) (test code = 3415) Niharika Grayson Viral Capsid Antigen IgG Result Interpretation: </= 0.8 Al Negative 0.9-1.0 Al Equivocal >/= 1.1 Al PositiveEBV ANTIBODY, [id number] 15:17:00 Test Item Value Reference Range Interpretation Comments NIHARIKA GRAYSON VIRAL CAPSID Negative Negative, Equivocal ANTIGEN IGM (BEAKER) (test code = 3418) Niharika Grayson Viral Capsid Antigen IgM Result Interpretation: </= 0.8 Al Negative 0.9-1.0 Al Equivocal >/= 1.1 Al PositiveVARICELLA ZOSTER ANTIBODY, [id number] 15:17:00 Test Item Value Reference Range Interpretation Comments VARICELLA ZOSTER IGG (AL) (BEAKER) 3.4 (test code = 3197) VARICELLA ZOSTER RESULT INTERPRETATIONS: <=0.8 Al Nonreactive: Presumed non- immune to VZV 0.9-1.0Al Equivocal >=1.1 Al Reactive: Presumed immune to VZV HEPATITIS B SURFACE [id number] 12:59:00 Test Item Value Reference Range Interpretation Comments HEPATITIS B SURFACE ANTIBODY 48662.3 mIU/mL <8.0 H (BEAKER) (test code = 647) [employer] ID - ROSIANGHEPATITIS B SURFACE [id number] 12:47:00 Test Item Value Reference Range Interpretation Comments HEPATITIS B SURFACE ANTIGEN (2) Nonreactive Nonreactive (BEAKER) (test code = 2585) [employer] ID - TIKAEPATITIS B CORE ANTIBODY, [id number] 12:47:00 Test Item Value Reference Range Interpretation Comments HEPATITIS B CORE IGM ANTIBODY Nonreactive Nonreactive (BEAKER) (test code = 645) [employer] ID - TIKAEPATITIS C [id number] 12:47:00 Test Item Value Reference Range Interpretation Comments HEPATITIS C ANTIBODY (BEAKER) Nonreactive Nonreactive (test code = 367) [employer] And [employer] In[employer] ID - TIKAIV-1 ANTIGEN WITH HIV-1/2 [id number] 12:47:00 Test Item Value Reference Range Interpretation Comments HIV-1 ANTIGEN WITH HIV 1\T\2 Nonreactive Nonreactive ANTIBODY (2) (BEAKER) (test code = 2586) [employer] ID - NANCYGPTH, [id number] 12:03:00 Test Item Value Reference Range Interpretation Comments PARATHYROID HORMONE INTACT 430.9 pg/mL 8.5-72.5 H (BEAKER) (test code = 577) [employer] ID - LACOMPREHENSIVE METABOLIC [id number] 11:56:00 Test Item Value Reference Range Interpretation [...] S NOT APPLICABLE FOR DIALYSIS PATIEN TS. [employer]structor ID - LAURIC [id number] 11:55:00 Test Item Value Reference Range Interpretation Comments URIC ACID (BEAKER) (test code = 5.5 mg/dL 2.6-7.2 773) [employer] ID - [id number] 11:55:00 Test Item Value Reference Range Interpretation Comments PHOSPHORUS (BEAKER) (test code = 5.5 mg/dL 2.3-4.7 H 604) [employer] ID - LAGAMMA GLUTAMYL TRANSFERASE (GGT)2019-05-23 11:55:00 Test Item Value Reference Range Interpretation Comments GAMMA GLUTAMYL TRANSFERASE (BEAKER) 20 U/L 9-64 (test code = 364) [employer] ID - LALACTATE DEHYDROGENASE (LDH)2019-05-23 11:55:00 Test Item Value Reference Range Interpretation Comments LACTATE DEHYDROGENASE (BEAKER) (test 249 U/L 125-220 H code = 635) [employer] And [employer] Instructor ID - LAURINALYSIS W/ [id number] 11:43:00 Test Item Value Reference Range Interpretation [...] < /HPF SOURCE(BEAKER) (test code = 2795) [employer] And [employer] Instructor ID - [auto][employer] Officer And Flight Instructor ID - techPT/[id number] 11:32:00 Test Item Value Reference Range Interpretation [...] 2.5-3.5 for patients wiht mechanical heart valves.PROTHROMBIN TIME/[id number] 11:31:00 Test Item Value Reference Range Interpretation [...] mechanical heart valves.CBC W/PLT COUNT & AUTO [id number] 11:27:00 Test Item Value Reference Range Interpretation [...] 0-1 PERCENT (BEAKER) (test code = 2801) [id number] 00:00:00 Test Item Value Reference Range Interpretation Comments TSH, THIRD GENERATION (test >100.000 UIU/ML code = 2821) [id number] 00:00:00 Test Item Value Reference Range Interpretation Comments TSH, THIRD GENERATION (test >100.000 UIU/ML code = 2821) [id number] 00:00:00 Test Item Value Reference Range Interpretation Comments TSH, THIRD GENERATION (test >100.000 UIU/ML code = 2821) [id number] 00:00:00 Test Item Value Reference Range Interpretation Comments TSH, THIRD GENERATION (test >100.000 UIU/ML code = 2821) [id number] 00:00:00 Test Item Value Reference Range Interpretation Comments TSH, THIRD GENERATION (test >100.000 UIU/ML code = 2821) [id number] 00:00:00 Test Item Value Reference Range Interpretation Comments TSH, THIRD GENERATION (test >100.000 UIU/ML code = 2821) [id number] 00:00:00 Test Item Value Reference Range Interpretation Comments TSH, THIRD GENERATION (test >100.000 UIU/ML code = 2821) [id number] 00:00:00 Test Item Value Reference Range Interpretation Comments TSH, THIRD GENERATION (test >100.000 UIU/ML code = 2821) [id number] 00:00:00 Test Item Value Reference Range Interpretation Comments TSH, THIRD GENERATION (test >100.000 UIU/ML code = 2821) [id number] 00:00:00 Test Item Value Reference Range Interpretation Comments TSH, THIRD GENERATION (test >100.000 UIU/ML code = 2821) [id number] 00:00:00 Test Item Value Reference Range Interpretation Comments TSH, THIRD GENERATION (test >100.000 UIU/ML code = 2821) [id number] 00:00:00 Test Item Value Reference Range Interpretation Comments TSH, THIRD GENERATION (test >100.000 UIU/ML code = 2821) [id number] 00:00:00 Test Item Value Reference Range Interpretation Comments TSH, THIRD GENERATION (test >100.000 UIU/ML code = 2821) [id number] 00:00:00 Test Item Value Reference Range Interpretation Comments TSH, THIRD GENERATION (test >100.000 UIU/ML code = 2821) [id number] 00:00:00 Test Item Value Reference Range Interpretation Comments TSH, THIRD GENERATION (test >100.000 UIU/ML code = 2821) [id number] 00:00:00 Test Item Value Reference Range Interpretation Comments TSH, THIRD GENERATION (test >100.000 UIU/ML code = 2821) [id number] 00:00:00 Test Item Value Reference Range Interpretation Comments TSH, THIRD GENERATION (test >100.000 UIU/ML code = 2821) [id number] 00:00:00 Test Item Value Reference Range Interpretation Comments TSH, THIRD GENERATION (test >100.000 UIU/ML code = 2821) [id number] 00:00:00 Test Item Value Reference Range Interpretation Comments TSH, THIRD GENERATION (test >100.000 UIU/ML code = 2821) [id number] 00:00:00 Test Item Value Reference Range Interpretation Comments TSH, THIRD GENERATION (test >100.000 UIU/ML code = 2821) [id number] 00:00:00 Test Item Value Reference Range Interpretation Comments TSH, THIRD GENERATION (test >100.000 UIU/ML code = 2821) [id number] 00:00:00 Test Item Value Reference Range Interpretation Comments TSH, THIRD GENERATION (test >100.000 UIU/ML code = 2821) [id number] 00:00:00 Test Item Value Reference Range Interpretation Comments TSH, THIRD GENERATION (test >100.000 UIU/ML code = 2821) LIPID [id number] 00:00:00 Test Item Value Reference Range Interpretation Comments CHOLESTEROL (test code = 2210) 201 MG/DL TRIGLYCERIDES (test code = 2232) 227 MG/DL HDL CHOLESTEROL (test code = 2220) 52 MG/DL CALC LDL CHOL (test code = 2237) 104 MG/DL RISK RATIO LDL/HDL (test code = 1.99 RATIO 2238) LIPID [id number] 00:00:00 Test Item Value Reference Range Interpretation Comments CHOLESTEROL (test code = 2210) 201 MG/DL TRIGLYCERIDES (test code = 2232) 227 MG/DL HDL CHOLESTEROL (test code = 2220) 52 MG/DL CALC LDL CHOL (test code = 2237) 104 MG/DL RISK RATIO LDL/HDL (test code = 1.99 RATIO 2238) [id number] 00:00:00 Test Item Value Reference Range Interpretation Comments TSH, THIRD GENERATION (test >100.000 UIU/ML code = 2821) [id number] 00:00:00 Test Item Value Reference Range Interpretation Comments TSH, THIRD GENERATION (test >100.000 UIU/ML code = 2821) [id number] 00:00:00 Test Item Value Reference Range Interpretation Comments TSH, THIRD GENERATION (test >100.000 UIU/ML code = 2821) LIPID [id number] 00:00:00 Test Item Value Reference Range Interpretation Comments CHOLESTEROL (test code = 2210) 201 MG/DL TRIGLYCERIDES (test code = 2232) 227 MG/DL HDL CHOLESTEROL (test code = 2220) 52 MG/DL CALC LDL CHOL (test code = 2237) 104 MG/DL RISK RATIO LDL/HDL (test code = 1.99 RATIO 2238) LIPID [id number] 00:00:00 Test Item Value Reference Range Interpretation Comments CHOLESTEROL (test code = 2210) 201 MG/DL TRIGLYCERIDES (test code = 2232) 227 MG/DL HDL CHOLESTEROL (test code = 2220) 52 MG/DL CALC LDL CHOL (test code = 2237) 104 MG/DL RISK RATIO LDL/HDL (test code = 1.99 RATIO 2238) [id number] 00:00:00 Test Item Value Reference Range Interpretation Comments TSH, THIRD GENERATION (test >100.000 UIU/ML code = 2821) [id number] 00:00:00 Test Item Value Reference Range Interpretation Comments TSH, THIRD GENERATION (test >100.000 UIU/ML code = 2821) [id number] 00:00:00 Test Item Value Reference Range Interpretation Comments TSH, THIRD GENERATION (test >100.000 UIU/ML code = 2821) LIPID [id number] 00:00:00 Test Item Value Reference Range Interpretation Comments CHOLESTEROL (test code = 2210) 201 MG/DL TRIGLYCERIDES (test code = 2232) 227 MG/DL HDL CHOLESTEROL (test code = 2220) 52 MG/DL CALC LDL CHOL (test code = 2237) 104 MG/DL RISK RATIO LDL/HDL (test code = 1.99 RATIO 2238) LIPID [id number] 00:00:00 Test Item Value Reference Range Interpretation Comments CHOLESTEROL (test code = 2210) 201 MG/DL TRIGLYCERIDES (test code = 2232) 227 MG/DL HDL CHOLESTEROL (test code = 2220) 52 MG/DL CALC LDL CHOL (test code = 2237) 104 MG/DL RISK RATIO LDL/HDL (test code = 1.99 RATIO 2238) LIPID [id number] 00:00:00 Test Item Value Reference Range Interpretation Comments CHOLESTEROL (test code = 2210) 201 MG/DL TRIGLYCERIDES (test code = 2232) 227 MG/DL HDL CHOLESTEROL (test code = 2220) 52 MG/DL CALC LDL CHOL (test code = 2237) 104 MG/DL RISK RATIO LDL/HDL (test code = 1.99 RATIO 2238) [id number] 00:00:00 Test Item Value Reference Range Interpretation Comments TSH, THIRD GENERATION (test >100.000 UIU/ML code = 2821) [id number] 00:00:00 Test Item Value Reference Range Interpretation Comments TSH, THIRD GENERATION (test >100.000 UIU/ML code = 2821) [id number] 00:00:00 Test Item Value Reference Range Interpretation Comments TSH, THIRD GENERATION (test >100.000 UIU/ML code = 2821) [id number] 00:00:00 Test Item Value Reference Range Interpretation Comments TSH, THIRD GENERATION (test >100.000 UIU/ML code = 2821) [id number] 00:00:00 Test Item Value Reference Range Interpretation Comments TSH, THIRD GENERATION (test >100.000 UIU/ML code = 2821) LIPID [id number] 00:00:00 Test Item Value Reference Range Interpretation Comments CHOLESTEROL (test code = 2210) 201 MG/DL TRIGLYCERIDES (test code = 2232) 227 MG/DL HDL CHOLESTEROL (test code = 2220) 52 MG/DL CALC LDL CHOL (test code = 2237) 104 MG/DL RISK RATIO LDL/HDL (test code = 1.99 RATIO 2238) LIPID [id number] 00:00:00 Test Item Value Reference Range Interpretation Comments CHOLESTEROL (test code = 2210) 201 MG/DL TRIGLYCERIDES (test code = 2232) 227 MG/DL HDL CHOLESTEROL (test code = 2220) 52 MG/DL CALC LDL CHOL (test code = 2237) 104 MG/DL RISK RATIO LDL/HDL (test code = 1.99 RATIO 2238) [id number] 00:00:00 Test Item Value Reference Range Interpretation Comments TSH, THIRD GENERATION (test >100.000 UIU/ML code = 2821) [id number] 00:00:00 Test Item Value Reference Range Interpretation Comments TSH, THIRD GENERATION (test >100.000 UIU/ML code = 2821) [id number] 00:00:00 Test Item Value Reference Range Interpretation Comments TSH, THIRD GENERATION (test >100.000 UIU/ML code = 2821) LIPID [id number] 00:00:00 Test Item Value Reference Range Interpretation Comments CHOLESTEROL (test code = 2210) 201 MG/DL TRIGLYCERIDES (test code = 2232) 227 MG/DL HDL CHOLESTEROL (test code = 2220) 52 MG/DL CALC LDL CHOL (test code = 2237) 104 MG/DL RISK RATIO LDL/HDL (test code = 1.99 RATIO 2238) LIPID [id number] 00:00:00 Test Item Value Reference Range Interpretation Comments CHOLESTEROL (test code = 2210) 201 MG/DL TRIGLYCERIDES (test code = 2232) 227 MG/DL HDL CHOLESTEROL (test code = 2220) 52 MG/DL CALC LDL CHOL (test code = 2237) 104 MG/DL RISK RATIO LDL/HDL (test code = 1.99 RATIO 2238) [id number] 00:00:00 Test Item Value Reference Range Interpretation Comments TSH, THIRD GENERATION (test >100.000 UIU/ML code = 2821) [id number] 00:00:00 Test Item Value Reference Range Interpretation Comments TSH, THIRD GENERATION (test >100.000 UIU/ML code = 2821) [id number] 00:00:00 Test Item Value Reference Range Interpretation Comments TSH, THIRD GENERATION (test >100.000 UIU/ML code = 2821) LIPID [id number] 00:00:00 Test Item Value Reference Range Interpretation Comments CHOLESTEROL (test code = 2210) 201 MG/DL TRIGLYCERIDES (test code = 2232) 227 MG/DL HDL CHOLESTEROL (test code = 2220) 52 MG/DL CALC LDL CHOL (test code = 2237) 104 MG/DL RISK RATIO LDL/HDL (test code = 1.99 RATIO 2238) LIPID [id number] 00:00:00 Test Item Value Reference Range Interpretation Comments CHOLESTEROL (test code = 2210) 201 MG/DL TRIGLYCERIDES (test code = 2232) 227 MG/DL HDL CHOLESTEROL (test code = 2220) 52 MG/DL CALC LDL CHOL (test code = 2237) 104 MG/DL RISK RATIO LDL/HDL (test code = 1.99 RATIO 2238) [id number] 00:00:00 Test Item Value Reference Range Interpretation Comments TSH, THIRD GENERATION (test >100.000 UIU/ML code = 2821) [id number] 00:00:00 Test Item Value Reference Range Interpretation Comments TSH, THIRD GENERATION (test >100.000 UIU/ML code = 2821) [id number] 00:00:00 Test Item Value Reference Range Interpretation Comments TSH, THIRD GENERATION (test >100.000 UIU/ML code = 2821) LIPID [id number] 00:00:00 Test Item Value Reference Range Interpretation Comments CHOLESTEROL (test code = 2210) 201 MG/DL TRIGLYCERIDES (test code = 2232) 227 MG/DL HDL CHOLESTEROL (test code = 2220) 52 MG/DL CALC LDL CHOL (test code = 2237) 104 MG/DL RISK RATIO LDL/HDL (test code = 1.99 RATIO 2238) LIPID [id number] 00:00:00 Test Item Value Reference Range Interpretation Comments CHOLESTEROL (test code = 2210) 201 MG/DL TRIGLYCERIDES (test code = 2232) 227 MG/DL HDL CHOLESTEROL (test code = 2220) 52 MG/DL CALC LDL CHOL (test code = 2237) 104 MG/DL RISK RATIO LDL/HDL (test code = 1.99 RATIO 2238) [id number] 00:00:00 Test Item Value Reference Range Interpretation Comments TSH, THIRD GENERATION (test >100.000 UIU/ML code = 2821) [id number] 00:00:00 Test Item Value Reference Range Interpretation Comments TSH, THIRD GENERATION (test >100.000 UIU/ML code = 2821) [id number] 00:00:00 Test Item Value Reference Range Interpretation Comments TSH, THIRD GENERATION (test >100.000 UIU/ML code = 2821) COMPREHENSIVE METABOLIC [id number] 00:00:00 Test Item Value Reference Range Interpretation Comments GLUCOSE (test code = 2217) 103 MG/DL BUN (test code = 2208) 35 MG/DL CREATININE (test code = 2214) 6.37 MG/DL eGFR AMER. (test code 11 ML/MIN/1.73 = 75433) eGFR NON- AMER. (test 9 ML/MIN/1.73 code = 06239) CALC BUN/CREAT (test code = 5 RATIO [...] code = 2219) 10 U/L COMPREHENSIVE METABOLIC [id number] 00:00:00 Test Item Value Reference Range Interpretation Comments GLUCOSE (test code = 2217) 103 MG/DL BUN (test code = 2208) 35 MG/DL CREATININE (test code = 2214) 6.37 MG/DL eGFR AMER. (test code 11 ML/MIN/1.73 = 66997) eGFR NON- AMER. (test 9 ML/MIN/1.73 code = 33334) CALC BUN/CREAT (test code = 5 RATIO [...] (test code = 2219) 10 U/L LIPID [id number] 00:00:00 Test Item Value Reference Range Interpretation Comments CHOLESTEROL (test code = 2210) 240 MG/DL TRIGLYCERIDES (test code = 2232) 395 MG/DL HDL CHOLESTEROL (test code = 2220) 55 MG/DL CALC LDL CHOL (test code = 2237) 106 MG/DL RISK RATIO LDL/HDL (test code = 1.93 RATIO 2238) LIPID [id number] 00:00:00 Test Item Value Reference Range Interpretation Comments CHOLESTEROL (test code = 2210) 240 MG/DL TRIGLYCERIDES (test code = 2232) 395 MG/DL HDL CHOLESTEROL (test code = 2220) 55 MG/DL CALC LDL CHOL (test code = 2237) 106 MG/DL RISK RATIO LDL/HDL (test code = 1.93 RATIO 2238) CBC W/AUTO [id number] 00:00:00 Test Item Value Reference Range Interpretation [...] code = 1015) 327 K/UL CBC W/AUTO [id number] 00:00:00 Test Item Value Reference Range Interpretation [...] code = 1015) 327 K/UL CBC W/AUTO [id number] 00:00:00 Test Item Value Reference Range Interpretation [...] (test code = 1015) 327 K/UL HEMOGLOBIN [id number] 00:00:00 Test Item Value Reference Range Interpretation Comments HEMOGLOBIN A1c (test code = 03182) 6.2 % HEMOGLOBIN [id number] 00:00:00 Test Item Value Reference Range Interpretation Comments HEMOGLOBIN A1c (test code = 80387) 6.2 % HEMOGLOBIN [id number] 00:00:00 Test Item Value Reference Range Interpretation Comments HEMOGLOBIN A1c (test code = 77443) 6.2 % [id number] 00:00:00 Test Item Value Reference Range Interpretation Comments TSH, THIRD GENERATION (test >100.000 UIU/ML code = 2821) [id number] 00:00:00 Test Item Value Reference Range Interpretation Comments TSH, THIRD GENERATION (test >100.000 UIU/ML code = 2821) [id number] 00:00:00 Test Item Value Reference Range Interpretation Comments TSH, THIRD GENERATION (test >100.000 UIU/ML code = 2821) COMPREHENSIVE METABOLIC [id number] 00:00:00 Test Item Value Reference Range Interpretation Comments GLUCOSE (test code = 2217) 103 MG/DL BUN (test code = 2208) 35 MG/DL CREATININE (test code = 2214) 6.37 MG/DL eGFR AMER. (test code 11 ML/MIN/1.73 = 12586) eGFR NON- AMER. (test 9 ML/MIN/1.73 code = 65535) CALC BUN/CREAT (test code = 5 RATIO [...] code = 2219) 10 U/L COMPREHENSIVE METABOLIC [id number] 00:00:00 Test Item Value Reference Range Interpretation Comments GLUCOSE (test code = 2217) 103 MG/DL BUN (test code = 2208) 35 MG/DL CREATININE (test code = 2214) 6.37 MG/DL eGFR AMER. (test code 11 ML/MIN/1.73 = 03011) eGFR NON- AMER. (test 9 ML/MIN/1.73 code = 74655) CALC BUN/CREAT (test code = 5 RATIO [...] (test code = 2219) 10 U/L LIPID [id number] 00:00:00 Test Item Value Reference Range Interpretation Comments CHOLESTEROL (test code = 2210) 240 MG/DL TRIGLYCERIDES (test code = 2232) 395 MG/DL HDL CHOLESTEROL (test code = 2220) 55 MG/DL CALC LDL CHOL (test code = 2237) 106 MG/DL RISK RATIO LDL/HDL (test code = 1.93 RATIO 2238) LIPID [id number] 00:00:00 Test Item Value Reference Range Interpretation Comments CHOLESTEROL (test code = 2210) 240 MG/DL TRIGLYCERIDES (test code = 2232) 395 MG/DL HDL CHOLESTEROL (test code = 2220) 55 MG/DL CALC LDL CHOL (test code = 2237) 106 MG/DL RISK RATIO LDL/HDL (test code = 1.93 RATIO 2238) CBC W/AUTO [id number] 00:00:00 Test Item Value Reference Range Interpretation [...] code = 1015) 327 K/UL CBC W/AUTO [id number] 00:00:00 Test Item Value Reference Range Interpretation [...] code = 1015) 327 K/UL CBC W/AUTO [id number] 00:00:00 Test Item Value Reference Range Interpretation [...] (test code = 1015) 327 K/UL HEMOGLOBIN [id number] 00:00:00 Test Item Value Reference Range Interpretation Comments HEMOGLOBIN A1c (test code = 86799) 6.2 % HEMOGLOBIN [id number] 00:00:00 Test Item Value Reference Range Interpretation Comments HEMOGLOBIN A1c (test code = 18872) 6.2 % HEMOGLOBIN [id number] 00:00:00 Test Item Value Reference Range Interpretation Comments HEMOGLOBIN A1c (test code = 58649) 6.2 % [id number] 00:00:00 Test Item Value Reference Range Interpretation Comments TSH, THIRD GENERATION (test >100.000 UIU/ML code = 2821) [id number] 00:00:00 Test Item Value Reference Range Interpretation Comments TSH, THIRD GENERATION (test >100.000 UIU/ML code = 2821) [id number] 00:00:00 Test Item Value Reference Range Interpretation Comments TSH, THIRD GENERATION (test >100.000 UIU/ML code = 2821) COMPREHENSIVE METABOLIC [id number] 00:00:00 Test Item Value Reference Range Interpretation Comments GLUCOSE (test code = 2217) 103 MG/DL BUN (test code = 2208) 35 MG/DL CREATININE (test code = 2214) 6.37 MG/DL eGFR AMER. (test code 11 ML/MIN/1.73 = 76861) eGFR NON- AMER. (test 9 ML/MIN/1.73 code = 96071) CALC BUN/CREAT (test code = 5 RATIO 2234) SODIUM (test code = 2231) 141 MEQ/L [...] code = 2219) 10 U/L COMPREHENSIVE METABOLIC [id number] 00:00:00 Test Item Value Reference Range Interpretation Comments GLUCOSE (test code = 2217) 103 MG/DL BUN (test code = 2208) 35 MG/DL CREATININE (test code = 2214) 6.37 MG/DL eGFR AMER. (test code 11 ML/MIN/1.73 = 54762) eGFR NON- AMER. (test 9 ML/MIN/1.73 code = 69614) CALC BUN/CREAT (test code = 5 RATIO [...] (test code = 2219) 10 U/L LIPID [id number] 00:00:00 Test Item Value Reference Range Interpretation Comments CHOLESTEROL (test code = 2210) 240 MG/DL TRIGLYCERIDES (test code = 2232) 395 MG/DL HDL CHOLESTEROL (test code = 2220) 55 MG/DL CALC LDL CHOL (test code = 2237) 106 MG/DL RISK RATIO LDL/HDL (test code = 1.93 RATIO 2238) LIPID [id number] 00:00:00 Test Item Value Reference Range Interpretation Comments CHOLESTEROL (test code = 2210) 240 MG/DL TRIGLYCERIDES (test code = 2232) 395 MG/DL HDL CHOLESTEROL (test code = 2220) 55 MG/DL CALC LDL CHOL (test code = 2237) 106 MG/DL RISK RATIO LDL/HDL (test code = 1.93 RATIO 2238) COMPREHENSIVE METABOLIC [id number] 00:00:00 Test Item Value Reference Range Interpretation Comments GLUCOSE (test code = 2217) 103 MG/DL BUN (test code = 2208) 35 MG/DL CREATININE (test code = 2214) 6.37 MG/DL eGFR AMER. (test code 11 ML/MIN/1.73 = 27950) eGFR NON- AMER. (test 9 ML/MIN/1.73 code = 92788) CALC BUN/CREAT (test code = 5 RATIO [...] code = 2219) 10 U/L CBC W/AUTO [id number] 00:00:00 Test Item Value Reference Range Interpretation [...] (test code = 1015) 327 K/UL LIPID [id number] 00:00:00 Test Item Value Reference Range Interpretation Comments CHOLESTEROL (test code = 2210) 240 MG/DL TRIGLYCERIDES (test code = 2232) 395 MG/DL HDL CHOLESTEROL (test code = 2220) 55 MG/DL CALC LDL CHOL (test code = 2237) 106 MG/DL RISK RATIO LDL/HDL (test code = 1.93 RATIO 2238) CBC W/AUTO [id number] 00:00:00 Test Item Value Reference Range Interpretation [...] code = 1015) 327 K/UL CBC W/AUTO [id number] 00:00:00 Test Item Value Reference Range Interpretation [...] (test code = 1015) 327 K/UL HEMOGLOBIN [id number] 00:00:00 Test Item Value Reference Range Interpretation Comments HEMOGLOBIN A1c (test code = 61060) 6.2 % HEMOGLOBIN [id number] 00:00:00 Test Item Value Reference Range Interpretation Comments HEMOGLOBIN A1c (test code = 05167) 6.2 % HEMOGLOBIN [id number] 00:00:00 Test Item Value Reference Range Interpretation Comments HEMOGLOBIN A1c (test code = 73295) 6.2 % [id number] 00:00:00 Test Item Value Reference Range Interpretation Comments TSH, THIRD GENERATION (test >100.000 UIU/ML code = 2821) [id number] 00:00:00 Test Item Value Reference Range Interpretation Comments TSH, THIRD GENERATION (test >100.000 UIU/ML code = 2821) [id number] 00:00:00 Test Item Value Reference Range Interpretation Comments TSH, THIRD GENERATION (test >100.000 UIU/ML code = 2821) CBC W/AUTO [id number] 00:00:00 Test Item Value Reference Range Interpretation [...] code = 1015) 327 K/UL CBC W/AUTO [id number] 00:00:00 Test Item Value Reference Range Interpretation [...] (test code = 1015) 327 K/UL HEMOGLOBIN [id number] 00:00:00 Test Item Value Reference Range Interpretation Comments HEMOGLOBIN A1c (test code = 51339) 6.2 % HEMOGLOBIN [id number] 00:00:00 Test Item Value Reference Range Interpretation Comments HEMOGLOBIN A1c (test code = 76907) 6.2 % COMPREHENSIVE METABOLIC [id number] 00:00:00 Test Item Value Reference Range Interpretation Comments GLUCOSE (test code = 2217) 103 MG/DL BUN (test code = 2208) 35 MG/DL CREATININE (test code = 2214) 6.37 MG/DL eGFR AMER. (test code 11 ML/MIN/1.73 = 65432) eGFR NON- AMER. (test 9 ML/MIN/1.73 code = 35086) CALC BUN/CREAT (test code = 5 RATIO [...] code = 2219) 10 U/L COMPREHENSIVE METABOLIC [id number] 00:00:00 Test Item Value Reference Range Interpretation Comments GLUCOSE (test code = 2217) 103 MG/DL BUN (test code = 2208) 35 MG/DL CREATININE (test code = 2214) 6.37 MG/DL eGFR AMER. (test code 11 ML/MIN/1.73 = 73067) eGFR NON- AMER. (test 9 ML/MIN/1.73 code = 46997) CALC BUN/CREAT (test code = 5 RATIO [...] ALT (test code = 2219) 10 U/L [id number] 00:00:00 Test Item Value Reference Range Interpretation Comments TSH, THIRD GENERATION (test >100.000 UIU/ML code = 2821) [id number] 00:00:00 Test Item Value Reference Range Interpretation Comments TSH, THIRD GENERATION (test >100.000 UIU/ML code = 2821) LIPID [id number] 00:00:00 Test Item Value Reference Range Interpretation Comments CHOLESTEROL (test code = 2210) 240 MG/DL TRIGLYCERIDES (test code = 2232) 395 MG/DL HDL CHOLESTEROL (test code = 2220) 55 MG/DL CALC LDL CHOL (test code = 2237) 106 MG/DL RISK RATIO LDL/HDL (test code = 1.93 RATIO 2238) LIPID [id number] 00:00:00 Test Item Value Reference Range Interpretation Comments CHOLESTEROL (test code = 2210) 240 MG/DL TRIGLYCERIDES (test code = 2232) 395 MG/DL HDL CHOLESTEROL (test code = 2220) 55 MG/DL CALC LDL CHOL (test code = 2237) 106 MG/DL RISK RATIO LDL/HDL (test code = 1.93 RATIO 2238) CBC W/AUTO [id number] 00:00:00 Test Item Value Reference Range Interpretation [...] code = 1015) 327 K/UL CBC W/AUTO [id number] 00:00:00 Test Item Value Reference Range Interpretation [...] code = 1015) 327 K/UL CBC W/AUTO [id number] 00:00:00 Test Item Value Reference Range Interpretation [...] (test code = 1015) 327 K/UL HEMOGLOBIN [id number] 00:00:00 Test Item Value Reference Range Interpretation Comments HEMOGLOBIN A1c (test code = 44715) 6.2 % HEMOGLOBIN [id number] 00:00:00 Test Item Value Reference Range Interpretation Comments HEMOGLOBIN A1c (test code = 98873) 6.2 % HEMOGLOBIN [id number] 00:00:00 Test Item Value Reference Range Interpretation Comments HEMOGLOBIN A1c (test code = 67560) 6.2 % [id number] 00:00:00 Test Item Value Reference Range Interpretation Comments TSH, THIRD GENERATION (test >100.000 UIU/ML code = 2821) [id number] 00:00:00 Test Item Value Reference Range Interpretation Comments TSH, THIRD GENERATION (test >100.000 UIU/ML code = 2821) [id number] 00:00:00 Test Item Value Reference Range Interpretation Comments TSH, THIRD GENERATION (test >100.000 UIU/ML code = 2821) COMPREHENSIVE METABOLIC [id number] 00:00:00 Test Item Value Reference Range Interpretation Comments GLUCOSE (test code = 2217) 103 MG/DL BUN (test code = 2208) 35 MG/DL CREATININE (test code = 2214) 6.37 MG/DL eGFR AMER. (test code 11 ML/MIN/1.73 = 43936) eGFR NON- AMER. (test 9 ML/MIN/1.73 code = 31300) CALC BUN/CREAT (test code = 5 RATIO [...] BILIRUBIN, TOTAL (test code = 0.2 MG/DL 2207) ALKALINE PHOSPHATASE (test 58 U/L code = 2204) AST (test code = 2218) 10 U/L ALT (test code = 2219) 10 U/L COMPREHENSIVE METABOLIC [id number] 00:00:00 Test Item Value Reference Range Interpretation Comments GLUCOSE (test code = 2217) 103 MG/DL BUN (test code = 2208) 35 MG/DL CREATININE (test code = 2214) 6.37 MG/DL eGFR AMER. (test code 11 ML/MIN/1.73 = 65550) eGFR NON- AMER. (test 9 ML/MIN/1.73 code = 55573) CALC BUN/CREAT (test code = 5 RATIO [...] (test code = 2219) 10 U/L LIPID [id number] 00:00:00 Test Item Value Reference Range Interpretation Comments CHOLESTEROL (test code = 2210) 240 MG/DL TRIGLYCERIDES (test code = 2232) 395 MG/DL HDL CHOLESTEROL (test code = 2220) 55 MG/DL CALC LDL CHOL (test code = 2237) 106 MG/DL RISK RATIO LDL/HDL (test code = 1.93 RATIO 2238) LIPID [id number] 00:00:00 Test Item Value Reference Range Interpretation Comments CHOLESTEROL (test code = 2210) 240 MG/DL TRIGLYCERIDES (test code = 2232) 395 MG/DL HDL CHOLESTEROL (test code = 2220) 55 MG/DL CALC LDL CHOL (test code = 2237) 106 MG/DL RISK RATIO LDL/HDL (test code = 1.93 RATIO 2238) CBC W/AUTO [id number] 00:00:00 Test Item Value Reference Range Interpretation [...] code = 1015) 327 K/UL CBC W/AUTO [id number] 00:00:00 Test Item Value Reference Range Interpretation [...] code = 1015) 327 K/UL CBC W/AUTO [id number] 00:00:00 Test Item Value Reference Range Interpretation [...] (test code = 1015) 327 K/UL HEMOGLOBIN [id number] 00:00:00 Test Item Value Reference Range Interpretation Comments HEMOGLOBIN A1c (test code = 83488) 6.2 % HEMOGLOBIN [id number] 00:00:00 Test Item Value Reference Range Interpretation Comments HEMOGLOBIN A1c (test code = 59471) 6.2 % HEMOGLOBIN [id number] 00:00:00 Test Item Value Reference Range Interpretation Comments HEMOGLOBIN A1c (test code = 38587) 6.2 % [id number] 00:00:00 Test Item Value Reference Range Interpretation Comments TSH, THIRD GENERATION (test >100.000 UIU/ML code = 2821) [id number] 00:00:00 Test Item Value Reference Range Interpretation Comments TSH, THIRD GENERATION (test >100.000 UIU/ML code = 2821) [id number] 00:00:00 Test Item Value Reference Range Interpretation Comments TSH, THIRD GENERATION (test >100.000 UIU/ML code = 2821) COMPREHENSIVE METABOLIC [id number] 00:00:00 Test Item Value Reference Range Interpretation Comments GLUCOSE (test code = 2217) 103 MG/DL BUN (test code = 2208) 35 MG/DL CREATININE (test code = 2214) 6.37 MG/DL eGFR AMER. (test code 11 ML/MIN/1.73 = 27814) eGFR NON- AMER. (test 9 ML/MIN/1.73 code = 05629) CALC BUN/CREAT (test code = 5 RATIO [...] code = 2219) 10 U/L COMPREHENSIVE METABOLIC [id number] 00:00:00 Test Item Value Reference Range Interpretation Comments GLUCOSE (test code = 2217) 103 MG/DL BUN (test code = 2208) 35 MG/DL CREATININE (test code = 2214) 6.37 MG/DL eGFR AMER. (test code 11 ML/MIN/1.73 = 61279) eGFR NON- AMER. (test 9 ML/MIN/1.73 code = 05176) CALC BUN/CREAT (test code = 5 RATIO [...] (test code = 2219) 10 U/L LIPID [id number] 00:00:00 Test Item Value Reference Range Interpretation Comments CHOLESTEROL (test code = 2210) 240 MG/DL TRIGLYCERIDES (test code = 2232) 395 MG/DL HDL CHOLESTEROL (test code = 2220) 55 MG/DL CALC LDL CHOL (test code = 2237) 106 MG/DL RISK RATIO LDL/HDL (test code = 1.93 RATIO 2238) LIPID [id number] 00:00:00 Test Item Value Reference Range Interpretation Comments CHOLESTEROL (test code = 2210) 240 MG/DL TRIGLYCERIDES (test code = 2232) 395 MG/DL HDL CHOLESTEROL (test code = 2220) 55 MG/DL CALC LDL CHOL (test code = 2237) 106 MG/DL RISK RATIO LDL/HDL (test code = 1.93 RATIO 2238) CBC W/AUTO [id number] 00:00:00 Test Item Value Reference Range Interpretation [...] code = 1015) 327 K/UL CBC W/AUTO [id number] 00:00:00 Test Item Value Reference Range Interpretation [...] code = 1015) 327 K/UL CBC W/AUTO [id number] 00:00:00 Test Item Value Reference Range Interpretation [...] (test code = 1015) 327 K/UL HEMOGLOBIN [id number] 00:00:00 Test Item Value Reference Range Interpretation Comments HEMOGLOBIN A1c (test code = 75231) 6.2 % HEMOGLOBIN [id number] 00:00:00 Test Item Value Reference Range Interpretation Comments HEMOGLOBIN A1c (test code = 79142) 6.2 % HEMOGLOBIN [id number] 00:00:00 Test Item Value Reference Range Interpretation Comments HEMOGLOBIN A1c (test code = 63007) 6.2 % [id number] 00:00:00 Test Item Value Reference Range Interpretation Comments TSH, THIRD GENERATION (test >100.000 UIU/ML code = 2821) [id number] 00:00:00 Test Item Value Reference Range Interpretation Comments TSH, THIRD GENERATION (test >100.000 UIU/ML code = 2821) [id number] 00:00:00 Test Item Value Reference Range Interpretation Comments TSH, THIRD GENERATION (test >100.000 UIU/ML code = 2821) COMPREHENSIVE METABOLIC [id number] 00:00:00 Test Item Value Reference Range Interpretation Comments GLUCOSE (test code = 2217) 103 MG/DL BUN (test code = 2208) 35 MG/DL CREATININE (test code = 2214) 6.37 MG/DL eGFR AMER. (test code 11 ML/MIN/1.73 = 45672) eGFR NON- AMER. (test 9 ML/MIN/1.73 code = 99054) CALC BUN/CREAT (test code = 5 RATIO [...] code = 2219) 10 U/L COMPREHENSIVE METABOLIC [id number] 00:00:00 Test Item Value Reference Range Interpretation Comments GLUCOSE (test code = 2217) 103 MG/DL BUN (test code = 2208) 35 MG/DL CREATININE (test code = 2214) 6.37 MG/DL eGFR AMER. (test code 11 ML/MIN/1.73 = 25868) eGFR NON- AMER. (test 9 ML/MIN/1.73 code = 66255) CALC BUN/CREAT (test code = 5 RATIO [...] (test code = 2219) 10 U/L LIPID [id number] 00:00:00 Test Item Value Reference Range Interpretation Comments CHOLESTEROL (test code = 2210) 240 MG/DL TRIGLYCERIDES (test code = 2232) 395 MG/DL HDL CHOLESTEROL (test code = 2220) 55 MG/DL CALC LDL CHOL (test code = 2237) 106 MG/DL RISK RATIO LDL/HDL (test code = 1.93 RATIO 2238) LIPID [id number] 00:00:00 Test Item Value Reference Range Interpretation Comments CHOLESTEROL (test code = 2210) 240 MG/DL TRIGLYCERIDES (test code = 2232) 395 MG/DL HDL CHOLESTEROL (test code = 2220) 55 MG/DL CALC LDL CHOL (test code = 2237) 106 MG/DL RISK RATIO LDL/HDL (test code = 1.93 RATIO 2238) CBC W/AUTO [id number] 00:00:00 Test Item Value Reference Range Interpretation [...] code = 1015) 327 K/UL CBC W/AUTO [id number] 00:00:00 Test Item Value Reference Range Interpretation [...] code = 1015) 327 K/UL CBC W/AUTO [id number] 00:00:00 Test Item Value Reference Range Interpretation [...] (test code = 1015) 327 K/UL HEMOGLOBIN [id number] 00:00:00 Test Item Value Reference Range Interpretation Comments HEMOGLOBIN A1c (test code = 94036) 6.2 % HEMOGLOBIN [id number] 00:00:00 Test Item Value Reference Range Interpretation Comments HEMOGLOBIN A1c (test code = 52046) 6.2 % HEMOGLOBIN [id number] 00:00:00 Test Item Value Reference Range Interpretation Comments HEMOGLOBIN A1c (test code = 53554) 6.2 % [id number] 00:00:00 Test Item Value Reference Range Interpretation Comments TSH, THIRD GENERATION (test >100.000 UIU/ML code = 2821) [id number] 00:00:00 Test Item Value Reference Range Interpretation Comments TSH, THIRD GENERATION (test >100.000 UIU/ML code = 2821) [id number] 00:00:00 Test Item Value Reference Range Interpretation Comments TSH, THIRD GENERATION (test >100.000 UIU/ML code = 2821)
--- NOTE | 2022-09-18 18:33 | RAD REPORT ---
EXAM DESCRIPTION: RAD - Chest Pa And Lat (2 Views) - 09/18/2022 6:20 pm CLINICAL HISTORY: SOB Chest pain. COMPARISON: <Comparisons> FINDINGS: The lungs are hyperexpanded with mild interstitial pulmonary edema suspected. The heart is moderately enlarged. No displaced fractures. IMPRESSION: Mild CHF.
[2022-09-18] MEDS ORDERED: FUROSEMIDE 20 MG TABLET ONE (18:51)
--- NOTE | 2022-09-18 19:08 | EDPHYS ---
Physician Documentation [facility] [place] Name: Alejandro Dunbar Age: 57 yrs Sex: Male : 1965 Arrival Date: 09/18/2022 Time: 17:06 Bed 18 Private MD: ED Physician Tomas Cast HPI: 09/18 17:41 This 57 yrs old Male presents to ER via Ambulatory with complaints of snw Breathing Difficulty. 17:41 The patient has shortness of breath with supine position. Onset: The symptoms/episode snw began/occurred gradually. Duration: The symptoms are intermittent. Associated signs and symptoms: The patient has no apparent associated signs or symptoms. Severity of symptoms: At their worst the symptoms were mild moderate. The patient has experienced similar episodes in the past. The patient has not recently seen a physician. dialysis M/W/F. Finished dialysis today for 3h, tried using nebulizer, pt does not have nebulizer unit and is attempting use with O2 concentrator that only goes to 5 L . Historical: - Allergies: 17:23 No Known Allergies; hb - PMHx: 17:23 Diabetes - NIDDM; Dialysis; High Cholesterol; Hypertension; Hypothyroidism; hb - Immunization history:: Adult Immunizations up to date, Client reports receiving the 2nd dose of the Covid vaccine. - Social history:: Smoking status: Patient denies any tobacco usage or history of. Patient/guardian denies using alcohol. ROS: 17:41 Constitutional: Negative for fever, chills, and weight loss, Eyes: Negative for injury, snw pain, redness, and discharge, ENT: Negative for injury, pain, and discharge, Neck: Negative for injury, pain, and swelling, Cardiovascular: Negative for chest pain, palpitations, and edema, Abdomen/GI: Negative for abdominal pain, nausea, vomiting, diarrhea, and constipation, Back: Negative for injury and pain, : Negative for injury, bleeding, discharge, and swelling, MS/Extremity: Negative for injury and deformity, Skin: Negative for injury, rash, and discoloration, Neuro: Negative for headache, weakness, numbness, tingling, and seizure, Psych: Negative for depression, anxiety, suicide ideation, homicidal ideation, and hallucinations. 17:41 Respiratory: Positive for cough, with white sputum, shortness of breath, on exertion. Exam: 17:40 Constitutional: This is a well developed, well nourished patient who is awake, alert, snw and in no acute distress. Head/Face: Normocephalic, atraumatic. Eyes: Pupils equal round and reactive to light, extra-ocular motions intact. Lids and lashes normal. Conjunctiva and sclera are non-icteric and not injected. Cornea within normal limits. Periorbital areas with no swelling, redness, or edema. ENT: Nares patent. No nasal discharge, no septal abnormalities noted. Tympanic membranes are normal and external auditory canals are clear. Oropharynx with no redness, swelling, or masses, exudates, or evidence of obstruction, uvula midline. Mucous membranes moist. Neck: Trachea midline, no thyromegaly or masses palpated, and no cervical lymphadenopathy. Supple, full range of motion without nuchal rigidity, or vertebral point tenderness. No Meningismus. Chest/axilla: Normal chest wall appearance and motion. Nontender with no deformity. No lesions are appreciated. Cardiovascular: Regular rate and rhythm with a normal S1 and S2. No gallops or rubs. Normal PMI, no JVD. No pulse deficits. +murmur Abdomen/GI: Soft, non-tender, with normal bowel sounds. No distension or tympany. No guarding or rebound. No evidence of tenderness throughout. Back: No spinal tenderness. No costovertebral tenderness. Full range of motion. Skin: Warm, dry with normal turgor. Normal color with no rashes, no lesions, and no evidence of cellulitis. MS/ Extremity: Pulses equal, no cyanosis. Neurovascular intact. Full, normal range of motion. Neuro: Awake and alert, GCS 15, oriented to person, place, time, and situation. Cranial nerves II-XII grossly intact. Motor strength 5/5 in all extremities. Sensory grossly intact. Cerebellar exam normal. Normal gait. Psych: Awake, alert, with orientation to person, place and time. Behavior, mood, and affect are within normal limits. Vital Signs: 17:21 BP 167 / 76; Pulse 79; Resp 16; Temp 98.3; Pulse Ox 96% on R/A; Weight 74.84 kg; Height hb 5 ft. 4 in. ; Pain 0/10; 18:19 BP 147 / 74; Pulse 71; Resp 18; Pulse Ox 97% on 3 lpm NC; ld1 18:46 BP 140 / 66; Pulse 66; Resp 18; Pulse Ox 100% on 3 lpm NC; ld1 19:34 BP 147 / 72; Pulse 67; Resp 18 S; Pulse Ox 100% on 2 lpm NC; ha1 17:21 Body Mass Index 28.32 (74.84 kg, 162.56 cm) hb 17:21 Pain Scale: Adult hb MDM: 17:16 Patient medically screened. lazaro 19:13 Differential diagnosis: Anxiety Reaction Bronchitis CHF exacerbation, Chronic snw Obstructive Pulmonary Disease pneumonia, pulmonary edema. Data reviewed: vital signs, nurses notes, radiologic studies, plain films. Counseling: I had a detailed discussion with the patient and/or guardian regarding: the historical points, exam findings, and any diagnostic results supporting the discharge/admit diagnosis, radiology results, the need for outpatient follow up, for definitive care, to return to the emergency department if symptoms worsen or persist or if there are any questions or concerns that arise at home. Special discussion: Based on the history and exam findings, there is no indication for further emergent testing or inpatient evaluation. I discussed with the patient/guardian the need to see the primary care provider for further evaluation of the symptoms. 09/18 17:38 Order name: Chest Pa And Lat (2 Views) XRAY; Complete Time: 18:41 snw Administered Medications: 18:46 Drug: Furosemide PO 20 mg Route: PO; ld1 Disposition: 17:37 Co-signature as Attending Physician, Tomas Cast MD I agree with the assessment and rn plan of care. I reviewed the patient's care provided by Advanced Practice Provider \T\ agree w/ the diagnosis \T\ care plan. I personally saw the pt \T\ performed a substantive portion of the visit, incldng all aspects of the (History/Exam/Medical Decision Making). PA/PHYSICAL SCIENCES PROFESSOR's history reviewed, patient interviewed, and examined. HPI: 57 year old male with ESRD present with mild sob and had low oxygen reading at dialysis, was transient, wears oxygen at home with oxygen concentrator. No asthma or COPD. Does not smoke. Reports mild orthopnea. No fever/chills. + cough with white sputum. Feels better now and oxygen 98% on 2L NC. No chest pain. My personal exam of patient reveals: No acute distress, no peripheral edema, RRR. No tachypnea. I agree with assessment and care plan and confirm the diagnosis (es) above. Disposition Summary: 09/18/22 19:08 Discharge Ordered Location: Home snw Condition: Stable snw Diagnosis - Unspecified systolic (congestive) heart failure snw Followup: snw - With: Emergency Department - When: As needed - Reason: Worsening of condition Followup: snw - With: Private Physician - When: 2 - 3 days - Reason: Recheck today's complaints, Continuance of care, Re-evaluation by your physician Discharge Instructions: - Discharge Summary Sheet snw - Heart Failure, Diagnosis snw - Home Oxygen Use, Adult snw - Form - Daily Weight Record snw Forms: - Medication Reconciliation Form snw - Thank You Letter snw - Antibiotic Education snw - Prescription Opioid Use snw Signatures: Dispatcher [employer] EDFelton Day MD MD cha Waters, Shelly, SUPPLY TECHNICIAN-C SUPPLY TECHNICIAN-Csnw Tomas Cast MD MD rn Ambar Vaca, RN RN Dipti Sung RN RN ld1 Corrections: (The following items were deleted from the chart) 17:40 17:37 Co-signature as Attending Physician, Tomas Cast MD rn rn
--- NOTE | 2022-09-18 19:08 | ER ---
Nurse's Notes [facility] Name: Alejandro Dunbar Age: 57 yrs Sex: Male : 1965 Arrival Date: 09/18/2022 Time: 17:06 Bed 18 Private MD: Diagnosis: Unspecified systolic (congestive) heart failure Presentation: 09/18 17:21 Chief complaint: SOB since this morning, home SpO2 50s when supine today. Pt completed hb 3 hours HD today. Coronavirus screen: At this time, the client does not indicate any symptoms associated with coronavirus-19. Ebola Screen: No symptoms or risks identified at this time. Initial Sepsis Screen: Does the patient meet any 2 criteria? No. Patient's initial sepsis screen is negative. Does the patient have a suspected source of infection? No. Patient's initial sepsis screen is negative. Risk Assessment: Do you want to hurt yourself or someone else? Patient reports no desire to harm self or others. Onset of symptoms was September 18, 2022. 17:21 Method Of Arrival: Ambulatory hb 17:21 Acuity: KERRI 3 hb Triage Assessment: 19:36 Respiratory: the patient has mild shortness of breath. ha1 Historical: - Allergies: 17:23 No Known Allergies; hb - PMHx: 17:23 Diabetes - NIDDM; Dialysis; High Cholesterol; Hypertension; Hypothyroidism; hb - Immunization history:: Adult Immunizations up to date, Client reports receiving the 2nd dose of the Covid vaccine. - Social history:: Smoking status: Patient denies any tobacco usage or history of. Patient/guardian denies using alcohol. Screenin:19 [facility] ED Fall Risk Assessment (Adult) History of falling in the last 3 months, ld1 including since admission No falls in past 3 months (0 pts). Abuse screen: Denies threats or abuse. Denies injuries from another. Nutritional screening: No deficits noted. Tuberculosis screening: No symptoms or risk factors identified. Assessment: 18:19 General: Appears in no apparent distress. comfortable, Behavior is calm, cooperative, ld1 appropriate for age. Pain: Denies pain. Neuro: Level of Consciousness is awake, alert, obeys commands, Oriented to person, place, time, situation. Cardiovascular: Capillary refill < 3 seconds Patient's skin is warm and dry. Rhythm is regular. Respiratory: Reports shortness of breath Airway is patent Respiratory effort is even, unlabored, Breath sounds are clear bilaterally. GI: Abdomen is round non-distended. : No signs and/or symptoms were reported regarding the genitourinary system. EENT: No signs and/or symptoms were reported regarding the EENT system. Derm: No signs and/or symptoms reported regarding the dermatologic system. Musculoskeletal: No signs and/or symptoms reported regarding the musculoskeletal system. 18:46 Reassessment: Patient appears in no apparent distress at this time. No changes from ld1 previously documented assessment. Patient and/or family updated on plan of care and expected duration. Pain level reassessed. Patient is alert, oriented x 3, equal unlabored respirations, skin warm/dry/pink. 19:34 Reassessment: Patient and/or family updated on plan of care and expected duration. Pain ha1 level reassessed. Patient is alert, oriented x 3, equal unlabored respirations, skin warm/dry/pink. Patient denies pain at this time. Patient states feeling better. Patient states symptoms have improved. Vital Signs: 17:21 BP 167 / 76; Pulse 79; Resp 16; Temp 98.3; Pulse Ox 96% on R/A; Weight 74.84 kg; Height hb 5 ft. 4 in. ; Pain 0/10; 18:19 BP 147 / 74; Pulse 71; Resp 18; Pulse Ox 97% on 3 lpm NC; ld1 18:46 BP 140 / 66; Pulse 66; Resp 18; Pulse Ox 100% on 3 lpm NC; ld1 19:34 BP 147 / 72; Pulse 67; Resp 18 S; Pulse Ox 100% on 2 lpm NC; ha1 17:21 Body Mass Index 28.32 (74.84 kg, 162.56 cm) hb 17:21 Pain Scale: Adult hb ED Course: 17:07 Patient arrived in ED. rg4 17:15 Nadeen Oejda FNP-C is PHCP. snw 17:15 Felton Brantley MD is Attending Physician. snw 17:22 Triage completed. hb 17:37 Attending Physician role handed off by Felton Brantley MD rn 17:37 Tomas Cast MD is Attending Physician. rn 18:19 Dipti Sung RN is Primary Nurse. ld1 18:19 Patient has correct armband on for positive identification. Placed in gown. Bed in low ld1 position. Call light in reach. Side rails up X2. Pulse ox on. NIBP on. metal reclamation kettle tender on. Door closed. Noise minimized. Warm blanket given. 18:19 No provider procedures requiring assistance completed. ld1 18:22 Chest Pa And Lat (2 Views) XRAY In Process Unspecified. EDMS 19:10 Arm band placed on. ha1 19:36 Patient did not have IV access during this emergency room visit. ha1 Administered Medications: 18:46 Drug: Furosemide PO 20 mg Route: PO; ld1 Medication: 18:19 VIS not applicable for this client. ld1 Outcome: 19:08 Discharge ordered by . snw 19:35 Discharged to home ambulatory. ha1 19:35 Condition: stable 19:35 Discharge instructions given to patient, Instructed on discharge instructions, follow up and referral plans. Demonstrated understanding of instructions, follow-up care. 19:36 Patient left the ED. ha1 Signatures: Dispatcher [employer] EDMS Nadeen Ojeda, CUSTOM FRAMING SPECIALIST-C CUSTOM FRAMING SPECIALIST-Csnw Tomas Cast MD MD rn Baxter, Heather, RN RN Yun Bonner rg4 Dipti Sung RN RN ld1 Stacia Jordan RN RN ha1
[2022-09-18 19:41] VITALS: TEMP 98.3
[2022-09-18 19:44] VITALS: O2SAT 100
[2022-09-18 19:45] VITALS: BP 147/72
== END 2022-09-18 19:36 | disposition home or self-care (01) ==
LOC: ER 17:06
DX: I50.20 Unspecified systolic (congestive) heart failure (principal); Z99.2 Dependence on renal dialysis; I10 Essential (primary) hypertension
CPT/HCPCS: 71046

== ENCOUNTER 2022-09-23 05:53 | Inpatient (IN) | payer OTHER ==
--- OUTSIDE RECORDS SUMMARY | 2022-09-23 06:15 | XMS REPORT | Continuity of Care Document ---
:1965 Author Organization [facility] t Address [address] [facility] [address] [place] [address] Care Team Providers Name Role Phone GERRI VINCENT Primary Care Physician Unavailable [id number] Attending Clinician Unavailable IRMA NICHOLSON Attending Clinician Unavailable SYLVAIN OLIVARES Attending Clinician Unavailable HO DENNISON Attending Clinician Unavailable JACINTO SIMPSON Attending Clinician Unavailable JOSELUIS FERNANDEZ Attending Clinician Unavailable Doctor Unassigned, [place] Attending Clinician Unavailable GERRI VINCENT Attending Clinician [...] Clinician Unavailable HUNTER GIPSON Attending Clinician Unavailable [id number] Admitting Clinician Unavailable IRMA NICHOLSON Admitting Clinician Unavailable SYLVAIN OLIVARES Admitting Clinician Unavailable GERRI VINCENT Admitting Clinician Unavailable Leo Mcginnis Anav Admitting Clinician Unavailable BETTINA SHEEHAN Admitting Clinician Unavailable Payers Payer Name Policy Type Policy Number Effective Date Expiration Date S [facility] MEDICARE A B [id number] 2018 00:00:00 CDC REVIEW [id number] 2019 00:00:00 MEDICAID OF [place] [id number] 2019 00:00:00 WELLMED/UHC DUAL [id number] 2022 COMP HMO D SNP 00:00:00 MEDICAID OF [place] [id number] 2019 00:00:00 [facility] [id number] MEDICARE PART A [id number] 2018 \T\ B 00:00:00 Problems Condition Condition [...] on dialysis dialysis Secondary Secondary Disease Recurre [facility] [...] Disease Active [facility] (BMI (BMI 3-12 [facility] 30-39.9) 30-39.9) 00:00: Medica l 00 Center Type 2 Type [address] [facility] diabetes diabetes nce - [facility] mellitus mellitus 00:00: Medica l with with 00 Center chronic chronic kidney kidney disease on disease on chronic chronic dialysis, dialysis, without without long-term long-term current current use of use of insulin insulin Pre-transp Pre-transp Disease Active [facility] lant lant 05-23 [facility] evaluation evaluation 00:00: Me dical for for 00 Center chronic chronic kidney kidney disease disease Essential Essential Disease Active [facility] hypertensi hypertensi 05-23 Ann-Marie kes on on 00:00: [address] Dizziness Dizziness Disease Active Uni vers 9-10 ity of 00:00: [place] [facility] Pre-syncop Pre-syncop Disease Active U nivers e e 9-08 ity of 00:00: [place] [address] Medical Branch Elevated Elevated Disease Active 2017-05 Unive rs troponin I troponin I 05-04 it y of level level 00:00: [place] [facility] Branch Elevated Elevated Disease Active 2017-05 Unive rs brain brain 1-02 ity of natriureti natriureti 00:[place] c peptide c peptide 00 Medi benjy (BNP) (BNP) Branch level level Essential Essential Disease Active 2017-05 Uni vers hypertensi hypertensi 1-02 it y of on on 00:00: [place] [address] Medical Branch Dyslipidem Dyslipidem Disease Active 2017-05 U nivers ia ia - ity of 00:00: [place] [facility] Hypocalcem Hypocalcem Disease Active 2017-05 U nivers ia ia 1- ity of 00:00: [address] Branch Allergies, Adverse Reactions, Alerts Allergy [...] 13:07: 28 n Propensi Active ty to 07 adverse 00:00: reaction 00 to drug NO KNOWN Drug Active Univers ALLERGIE Class ity of S [facility] NO KNOWN Allergy Active [facility] ALLERGIE S Family History Family Member Diagnosis Comments Start Date Stop Date Source Natural father Alcohol abuse [facility] Natural sister Diabetes [facility] Natural sister Kidney disease [facility] Natural sister No Known Problem [facility] Natural brother No Known Problem [facility] Natural mother No Known Problem [facility] Social History Social Habit Start Date Stop Date Quantity Comments Source History SDOH [facility] Alcohol Comment Medical C enter History of tobacco Cigarette Smoker [facility] use [facility] History SDOH [facility] Alcohol Std Drinks Medica l Center History SDOH [facility] Alcohol Binge Medical [address] [facility] Gender identity [facility] Sexual orientation [facility] Exposure to 2021-11-22 2021-12-02 Not sure University SARS-CoV-2 (event) 00:00:00 14:04:00 [facility] Alcohol intake 2019-12-17 2019-12-[address] [...] y of exposure 00:00:00 00:00:00 tobacco non-user [facility] Sex Assigned At [birth year] BRITT Truong 00:00:00 [facility]:00 [facility] Smoking Status Start Date Stop Date Source Ex-smoker 2018-03-03 00:00:00 2018-03-03 00:00:00 [facility] [place] Medications Ordered Filled Start Stop Current Ordering Indication Dosage Frequency Signature Comments Components Source Medication Medication Date Date Medication? Clinician (SIG) Name Name Dose 2021-05 No Unknown 2-14 00:00: 00 LATANOPROST 2021- No 0.005 % 2-14 SOLN 00:00: 00 [...] 00:00: DAY FOR 10 00 DAYS TAKE 1 2021-05 No CAPSULE BY 2-13 MOUTH EVERY 00:00: DAY 00 Dose 2021- No Unknown 2-13 00:00: 00 Dose 2021- No Unknown 2-13 00:00: 00 Dose 2021- No Unknown 2-13 00:00: 00 Dose 2021- No Unknown 2-13 00:00: 00 Dose 2021- No Unknown 2-13 00:00: 00 Dose 2021- No Unknown 2-13 00:00: 00 Dose 2021- No Unknown 2-13 00:00: 00 TAKE 1 2021- No CAPSULE 3 2-13 TIMES DAILY 00:00: NEEDED. 00 TAKE 1 2021-05 No TABLET BY 2-13 MOUTH EVERY 00:00: DAY FOR 10 00 DAYS TAKE 1 2021- No CAPSULE BY 2-13 MOUTH EVERY 00:00: DAY 00 Dose 2021-1 No Unknown 2-13 00:00: 00 Dose 2021-1 No Unknown 2-13 00:00: 00 Dose 2021-1 No Unknown 2-13 00:00: 00 Dose 2021-1 No Unknown 2-13 00:00: 00 Dose 2021-1 No Unknown 2-13 00:00: 00 Dose 2021-1 No Unknown 2-13 00:00: 00 Dose 2-1 No Unknown 2-13 00:00: 00 levothyroxi 2022-0 Yes [id number] 224ug Take 2 Univers ne 112 mcg 8-23 tablets by ity of tablet 00:00: mouth 00 every Medical morning. [place] levothyroxi 2021-0 Yes [id number] 224ug Take 2 Univers ne 112 mcg 8-23 tablets by ity of tablet 00:00: mouth 00 every Medical morning. Branch INSTILL 1 [...] 8-08 00:00: 00 Dose 2022-0 No Unknown 8- [...] No Unknown 808 00:00: 00 TAKE 1 2022-0 No 2 [...] 75 Unknown 7-25 00:00: 00 TAKE 1 2-0 No 300 CAPSULE BY 7-25 MOUTH EVERY 00:00: DAY 00 &lt 2022-0 No 10 7-25 00:00: 00 INSTILL 1 2021-0 No DROP [...] 00:00: 00 Dose 2022-0 No 80 Unknown 7- 00:00: 00 &lt 2022-0 No 7- 00:00: 00 &lt 2022-0 No 10 7- 00:00: 00 &lt 2022-0 No 10 7- 00:00: 00 &lt 2022-0 No 10 7- 00:00: 00 &lt 2022-0 No 10 7- 00:00: 00 &lt 2022-0 No 10 7-21 00:00: 00 &lt 2022-0 No 10 7-21 00:00: 00 &lt 2022-0 No 10 7- [...] 2022-0 No 6-21 00:00: 00 Januvia 25 2-0 No 1mg [...] Januvia 25 2022-0 No 1mg mg tablet 4- 00:00: 00 [...] 2022-0 No Unknown 3-16 00:00: 00 levothyroxi 2021-0 [...] 00:00: mouth [place] 00 every Medical morning. [place] Justiceia 25 2021-0 No 1mg mg tablet 2-04 [...] Take 1 Uni vers 25 mcg 2-04 08- tablet by ity of tablet 00:00: 00:00 mouth [place] 00 :00 every Medical morning. Branch lisinopriL 2-0 Yes 5mg Take 5 mg Un capri 5 mg tablet 07 by mouth ity of 00:00: daily. [address] lisinopriL 2-0 Yes 5mg Take 5 mg Un capri 5 mg tablet 07 by mouth ity of 00:00: daily. [address] lisinopriL 2-0 Yes 5mg Take 5 mg Un capri 5 mg tablet 07 by mouth ity of 00:00: daily. [address] amlodipine 2020-05 No 1mg 10 mg 2-30 tablet 00:00: 00 amlodipine 2020-05 No 1mg 10 mg 2-30 tablet 00:00: 00 amlodipine 2020-05 No 1mg 10 mg 2-30 tablet 00:00: 00 Dose 2020- No Unknown 2-30 00:00: 00 Dose 2020- No Unknown 2-30 00:00: 00 amlodipine 2020- No 1mg 10 [...] 200 mcg 4-13 tablet 00:00: 00 sevelamer 1-0 No 1mg carbonate 4-13 800 mg 00:00: [...] 200 mcg 4-13 tablet 00:00: 00 sevelamer 1-0 No 1mg carbonate 4-13 800 mg 00:00: tablet 00 levothyroxi 1-0 [...] 00 amlodipine 1-0 No 1mg 10 mg 4-12 tablet 00:00: [...] 200 mcg 2-02 tablet 00:00: 00 levothyroxi No 1mcg ne 100 mcg 2-02 tablet [...] tablet 21 Center calcium 2020-0 Yes 3{tbl} Q.[id number] Take [address] [facility] carbonate 8-15 [id number] tablets by [facility] (TUMS) 500 17:30: 3D [...] 10 MG 17:30: nightly. Medical tablet 21 [place] calcium 2020-0 Yes 3{tbl} Q.[id number] Take [address] carbonate 8-15 [id number] tablets by [facility] (TUMS) 500 17:30: 3D mouth 3 Medi benjy mg chewable 21 (three) Cente r tablet times daily. furosemide 2020-0 Yes 20mg QD Take [address] (LASIX) 20 8-15 by mouth [facility] MG tablet 17:30: daily. Medica l [address] [place] [address] lovastatin 2020-0 Yes 10mg QD Take [address] (MEVACOR) 8-15 by mouth [facility]ukes 10 MG 17:30: nightly. Medical tablet 21 [place] calcium 2020-0 Yes 3{tbl} Q.[id number] Take [address] carbonate 8-15 [id number] tablets by [facility] (TUMS) 500 17:30: 3D mouth 3 Medi benjy mg chewable 21 (three) Cente r tablet times daily. furosemide 2020-0 Yes 20mg QD Take [address] (LASIX) 20 8-15 by mouth [facility]ukes MG tablet 17:30: daily. Medica l [address] [place] [address] lovastatin 2020-0 Yes 10mg QD Take [address] (MEVACOR) 8-15 by mouth [facility]ukes 10 MG 17:30: nightly. Medical tablet 21 [place] calcium 2020-0 Yes 3{tbl} Q.[id number] Take [address] carbonate 8-15 [id number] tablets by [facility] (TUMS) 500 17:30: 3D mouth 3 Medi benjy mg chewable 21 (three) Cente r tablet times daily. furosemide 2020-0 Yes 20mg QD Take [address] (LASIX) 20 8-15 by mouth [facility] MG tablet 17:30: daily. Medica l [address] [place] [address] lovastatin 2020-0 Yes 10mg QD Take [address] (MEVACOR) 8-15 by mouth [facility]ukes 10 MG 17:30: nightly. Medical tablet 21 [place] calcium 2020-0 Yes 3{tbl} Q.[id number] Take [address] carbonate 8-15 [id number] tablets by [facility] (TUMS) 500 17:30: 3D mouth 3 Medi benjy mg chewable 21 (three) Cente r tablet times daily. furosemide 2020-0 Yes 20mg QD Take [address] (LASIX) 20 8-15 by mouth [facility] MG tablet 17:30: daily. [address] lovastatin 2020-0 Yes 10mg QD Take [address] (MEVACOR) 8-15 by mouth [facility] 10 MG 17:30: nightly. Medical tablet [address] [place] [address] calcium 2020-0 Yes 3{tbl} Q.[id number] Take [address] carbonate 8-15 [id number] tablets by [facility] (TUMS) 500 17:30: 3D mouth 3 Medi benjy mg chewable 21 (three) Cente r tablet times daily. furosemide 2020-0 Yes 20mg QD Take [address] (LASIX) 20 8-15 by mouth [facility] MG tablet 17:30: daily. [address] lovastatin 2020-0 Yes 10mg QD Take [address] (MEVACOR) 8-15 by mouth [facility] 10 MG 17:30: nightly. Medical tablet [address] [place] [address] calcium 2020-0 Yes 3{tbl} Q.[id number] Take [address] carbonate 8-15 [id number] tablets by [facility] (TUMS) 500 17:30: 3D mouth 3 Medi benjy mg chewable 21 (three) Cente r tablet times daily. furosemide 2020-0 Yes 20mg QD Take [address] (LASIX) 20 8-15 by mouth [facility] MG tablet 17:30: daily. [address] lovastatin 2020-0 Yes 10mg QD Take [address] (MEVACOR) 8-15 by mouth [facility] 10 MG 17:30: nightly. Medical tablet [address] [place] [address] calcium 2020-0 Yes 3{tbl} Q.[id number] Take [address] carbonate 8-15 [id number] tablets by [facility] (TUMS) 500 17:30: 3D mouth 3 Medi benjy mg chewable 21 (three) Cente r tablet times daily. furosemide 2020-0 Yes 20mg QD Take [address] (LASIX) 20 8-15 by mouth [facility] MG tablet 17:30: daily. [address] lovastatin 2020-0 Yes 10mg QD Take [address] (MEVACOR) 8-15 by mouth [facility] 10 MG 17:30: nightly. Medical tablet 21 [place] calcium 2020-0 Yes 3{tbl} Q.[id number] Take [address] carbonate 8-15 [id number] tablets by [facility] (TUMS) 500 17:30: 3D mouth 3 Medi benjy mg chewable 21 (three) Cente r tablet times daily. furosemide 2020-0 Yes 20mg QD Take [address] (LASIX) 20 8-15 by mouth [facility] MG tablet 17:30: daily. Medica [address] lovastatin 2020-0 Yes 10mg QD Take [address] (MEVACOR) 8-15 by mouth [facility] 10 MG 17:30: nightly. Medical tablet 21 [place] calcium 2020-0 Yes 3{tbl} Q.[id number] Take [address] carbonate 8-15 [id number] tablets by [facility] (NateraS) 500 17:30: 3D mouth 3 Medi benjy mg chewable 21 (three) Cente r tablet times daily. furosemide 2020-0 Yes 20mg QD Take [address] (LASIX) 20 8-15 by mouth [facility] MG tablet 17:30: [facility]. [facility] [address] lovastatin 2020-0 Yes 10mg QD Take [address] (MEVACOR) 8-15 by mouth [facility]ukes 10 MG 17:30: nightly. Medical tablet [address] [place] [address] calcium 2020-0 Yes 3{tbl} Q.[id number] Take [address] carbonate 8-15 [id number] tablets by [facility] (NateraS) 500 17:30: 3D mouth 3 Medi benjy mg chewable 21 (three) Cente r tablet times daily. furosemide 2020-0 Yes 20mg QD Take [address] (LASIX) 20 8-15 by mouth [facility] MG tablet 17:30: daily. [facility] [address] lovastatin 2020-0 Yes 10mg QD Take [address] (MEVACOR) 8-15 by mouth [facility] 10 MG 17:30: nightly. Medical tablet 21 [place] calcium 2020-0 Yes 3{tbl} Q.[id number] Take [address] carbonate 8-15 [id number] tablets by [facility] (TUMS) 500 17:30: 3D mouth 3 Medi benjy mg chewable 21 (three) Cente r tablet times daily. furosemide 2020-0 Yes 20mg QD Take [address] (LASIX) 20 8-15 by mouth [facility] MG tablet 17:30: daily. [address] lovastatin 2020-0 Yes 10mg QD Take [address] (MEVACOR) 8-15 by mouth [facility] 10 MG 17:30: nightly. Medical tablet [address] [place] [address] calcium 2020-0 Yes 3{tbl} Q.[id number] Take [address] carbonate 8-15 [id number] tablets by [facility] (TUMS) 500 17:30: 3D mouth 3 Medi benjy mg chewable 21 (three) Cente r tablet times daily. furosemide 2020-0 Yes 20mg QD Take [address] (LASIX) 20 8-15 by mouth [facility] MG tablet 17:30: daily. [address] lovastatin 2020-0 Yes 10mg QD Take [address] (MEVACOR) 8-15 by mouth [facility]ukes 10 MG 17:30: nightly. Medical tablet [address] [place] [address] calcium 2020-0 Yes 3{tbl} Q.[id number] Take [address] carbonate 8-15 [id number] tablets by [facility] (TUMS) 500 17:30: 3D mouth 3 Medi benjy mg chewable 21 (three) Cente r tablet times daily. furosemide 2020-0 Yes 20mg QD Take [address] (LASIX) 20 8-15 by mouth [facility] MG tablet 17:30: daily. [address] lovastatin 2020-0 Yes 10mg QD Take [address] (MEVACOR) 8-15 by mouth [facility]ukes 10 MG 17:30: nightly. Medical tablet [address] [place] [address] calcium 2020-0 Yes 3{tbl} Q.[id number] Take [address] carbonate 8-15 [id number] tablets by [facility] (TUMS) 500 17:30: 3D mouth 3 Medi benjy mg chewable 21 (three) Cente r tablet times daily. furosemide 2020-0 Yes 20mg QD Take [address] (LASIX) 20 8-15 by mouth [facility] MG tablet 17:30: daily. [address] lovastatin 2020-0 Yes 10mg QD Take [address] (MEVACOR) 8-15 by mouth [facility] 10 MG 17:30: nightly. Medical tablet [address] [place] [address] calcium 2020-0 Yes 3{tbl} Q.[id number] Take [address] carbonate 8-15 [id number] tablets by [facility] (TUMS) 500 17:30: 3D mouth 3 Medi benjy mg chewable 21 (three) Cente r tablet times daily. furosemide 2020-0 Yes 20mg QD Take [address] (LASIX) 20 8-15 by mouth [facility] MG tablet 17:30: daily. Medica [address] lovastatin 2020-0 Yes 10mg QD Take [address] (MEVACOR) 8-15 by mouth [facility] 10 MG 17:30: nightly. Medical tablet [address] [place] [address] calcium 2020-0 Yes 3{tbl} Q.[id number] Take [address] carbonate 8-15 [id number] tablets by [facility] (NateraS) 500 17:30: 3D mouth 3 Medi benjy mg chewable 21 (three) Cente r tablet times daily. furosemide 2020-0 Yes 20mg QD Take [address] (LASIX) 20 8-15 by mouth [facility] MG tablet 17:30: daily. [facility] [address] lovastatin 2020-0 Yes 10mg QD Take [address] (MEVACOR) 8-15 by mouth [facility] 10 MG 17:30: nightly. Medical tablet [address] [place] [address] calcium 2020-0 Yes 3{tbl} Q.[id number] Take [address] carbonate 8-15 [id number] tablets by [facility] (NateraS) 500 17:30: 3D mouth 3 Medi benjy mg chewable 21 (three) Cente r tablet times daily. furosemide 2020-0 Yes 20mg QD Take [address] (LASIX) 20 8-15 by mouth [facility] MG tablet 17:30: daily. [facility] [address] lovastatin 2020-0 Yes 10mg QD Take [address] (MEVACOR) 8-15 by mouth [facility] 10 MG 17:30: nightly. Medical tablet [address] [place] [address] calcium 2020-0 Yes 3{tbl} Q.[id number] Take [address] carbonate 8-15 [id number] tablets by [facility] (TUMS) 500 17:30: 3D mouth 3 Medi benjy mg chewable 21 (three) Cente r tablet times daily. furosemide 2020-0 Yes 20mg QD Take [address] (LASIX) 20 8-15 by mouth [facility] MG tablet 17:30: daily. [address] lovastatin 2020-0 Yes 10mg QD Take [address] (MEVACOR) 8-15 by mouth [facility] 10 MG 17:30: nightly. Medical tablet [address] [place] [address] calcium 2020-0 Yes 3{tbl} Q.[id number] Take [address] carbonate 8-15 [id number] tablets by [facility] (TUMS) 500 17:30: 3D mouth 3 Medi benjy mg chewable 21 (three) Cente r tablet times daily. furosemide 2020-0 Yes 20mg QD Take [address] (LASIX) 20 8-15 by mouth [facility] MG tablet 17:30: daily. [address] lovastatin 2020-0 Yes 10mg QD Take [address] (MEVACOR) 8-15 by mouth [facility] 10 MG 17:30: nightly. Medical tablet [address] [place] [address] calcium 2020-0 Yes 3{tbl} Q.[id number] Take [address] carbonate 8-15 [id number] tablets by [facility] (TUMS) 500 17:30: 3D mouth 3 Medi benjy mg chewable 21 (three) Cente r tablet times daily. furosemide 2020-0 Yes 20mg QD Take [address] (LASIX) 20 8-15 by mouth [facility] MG tablet 17:30: daily. [address] lovastatin 2020-0 Yes 10mg QD Take [address] (MEVACOR) 8-15 by mouth [facility] 10 MG 17:30: nightly. Medical tablet [address] [place] [address] calcium 2020-0 Yes 3{tbl} Q.[id number] Take [address] carbonate 8-15 [id number] tablets by [facility] (TUMS) 500 17:30: 3D mouth 3 Medi benjy mg chewable 21 (three) Cente r tablet times daily. furosemide 2020-0 Yes 20mg QD Take [address] (LASIX) 20 8-15 by mouth [facility] MG tablet 17:30: daily. [address] lovastatin 2020-0 Yes 10mg QD Take [address] (MEVACOR) 8-15 by mouth [facility] 10 MG 17:30: nightly. Medical tablet [address] [place] [address] calcium 2020-0 Yes 3{tbl} Q.[id number] Take [address] carbonate 8-15 [id number] tablets by [facility] (In[employer]) 500 17:30: 3D mouth 3 Medi benjy mg chewable 21 (three) Cente r tablet times daily. furosemide 2020-0 Yes 20mg QD Take [address] (LASIX) 20 8-15 by mouth [facility] MG tablet 17:30: daily. Medica l [address] [place] lovastatin 2020-0 Yes 10mg QD Take [address] (MEVACOR) 8-15 by mouth [facility] 10 MG 17:30: nightly. Medical tablet [address] [place] calcium 2020-0 Yes 3{tbl} Q.[id number] Take [address] carbonate 8-15 [id number] tablets by [facility] (Independent Space) 500 17:30: 3D mouth 3 Medi benjy mg chewable 21 (three) Cente r tablet times daily. furosemide 2020-0 Yes 20mg QD Take [address] (LASIX) 20 8-15 by mouth [facility] MG tablet 17:30: daily. Medica l [address] [place] lovastatin 2020-0 Yes 10mg QD Take [address] (MEVACOR) 8-15 by mouth [facility] 10 MG 17:30: nightly. Medical tablet [address] [place] calcium 2020-0 Yes 3{tbl} Q.[id number] Take [address] carbonate 8-15 [id number] tablets by [facility] ([employer] Space) 500 17:30: 3D mouth 3 Medi benjy mg chewable 21 (three) Cente r tablet times daily. furosemide 2020-0 Yes 20mg QD Take [address] (LASIX) 20 8-15 by mouth [facility] MG tablet 17:30: daily. Medica l [address] [place] [address] cyclobenzap 2020-0 Yes 1{tbl} QD Take [address] rine 8-04 tablet by [facility] (FLEXERIL) 00:00: mouth Medica l 10 MG 00 daily. [place] tablet cyclobenzap 2020-0 Yes 1{tbl} QD Take [address] rine 8-04 tablet by [facility] (FLEXERIL) 00:00: mouth Medica l 10 MG 00 daily. [place] tablet cyclobenzap 2020-0 Yes 1{tbl} QD Take [address] [facility]ine 8-04 tablet by [facility] (FLEXERIL) 00:00: mouth Medica l 10 MG 00 daily. [place] tablet cyclobenzap 2020-0 Yes 1{tbl} QD Take [...] MEALS Center 3 TIMES A DAY atorvastati 2020-0 Yes 1{tbl} QD Take [address] [facility] (LIPITOR) 5-15 tablet by Sheng es 10 MG 00:00: mouth Medical tablet 00 daily. Center amlodipine 2020-0 No 1mg 10 mg 5-15 [...] MG 00:00: mouth Medical tablet 00 daily. [place] atorvastati 2019-0 Yes 1{tbl} QD Take [address] [facility] (LIPITOR) 5-15 tablet by Sheng es 10 MG 00:00: mouth Medical tablet 00 daily. [place] atorvastati 2019-0 Yes 1{tbl} QD Take [address] [facility] (LIPITOR) 5-15 tablet by Sheng es 10 MG 00:00: mouth Medical tablet 00 daily. [place] atorvastati 0 Yes 1{tbl} QD Take [address] [facility] (LIPITOR) 5-15 tablet by Sheng es 10 MG 00:00: mouth Medical tablet 00 daily. [place] atorvastati 0 Yes 1{tbl} QD Take [address] [facility] (LIPITOR) 5-15 tablet by [facility] es 10 MG 00:00: mouth Medical tablet 00 daily. [place] atorvastati 0 Yes 1{tbl} QD Take [address] [facility] (LIPITOR) 5-15 tablet by [facility] es 10 MG 00:00: mouth Medical tablet 00 daily. [place] atorvastati 0 Yes 1{tbl} QD Take [address] [facility] (LIPITOR) 5-15 tablet by [facility]heng es 10 MG 00:00: mouth Medical tablet 00 daily. [place] atorvastati 2019-0 Yes 1{tbl} QD Take [address] [facility] (LIPITOR) 5-15 tablet by Sheng es 10 MG 00:00: mouth Medical tablet 00 daily. [place] atorvastati 2019-0 Yes 1{tbl} QD Take [address] [facility] (LIPITOR) 5-15 tablet by Sheng es 10 MG 00:00: mouth Medical tablet 00 daily. [place] atorvastati 0 Yes 1{tbl} QD Take [address] [facility] (LIPITOR) 5-15 tablet by [facility] es 10 MG 00:00: mouth Medical tablet 00 daily. [place] atorvastati 2020-0 Yes 1{tbl} QD Take [address] [facility] (LIPITOR) 5-15 tablet by Sheng es 10 MG 00:00: mouth Medical tablet 00 daily. [place] atorvastati 2019-0 Yes 1{tbl} QD Take [address] [facility] (LIPITOR) 5-15 tablet by Sheng es 10 MG 00:00: mouth Medical tablet 00 daily. [place] atorvastati 2019-0 Yes 1{tbl} QD Take [address] [facility] (LIPITOR) 5-15 tablet by Sheng es 10 MG 00:00: mouth Medical tablet 00 daily. [place] atorvastati 2019-0 Yes 1{tbl} QD Take [address] [facility] (LIPITOR) 5-15 tablet by [facility] 10 MG 00:00: mouth Medical tablet 00 daily. [place] atorvastati 0 Yes 1{tbl} QD Take [address] [facility] (LIPITOR) 5-15 tablet by [facility] 10 MG 00:00: mouth Medical tablet 00 daily. [place] atorvastati 0 Yes 1{tbl} QD Take [address] [facility] (LIPITOR) 5-15 tablet by [facility] es 10 MG 00:00: mouth Medical tablet 00 daily. [place] atorvastati 0 Yes 1{tbl} QD Take [address] [facility] (LIPITOR) 5-15 tablet by Sheng es 10 MG 00:00: mouth Medical tablet 00 daily. [place] atorvastati 2019-0 Yes 1{tbl} QD Take [address] [facility] (LIPITOR) 5-15 tablet by [facility]heng es 10 MG 00:00: mouth Medical tablet 00 daily. [place] atorvastati 2019-0 Yes 1{tbl} QD Take [address] [facility] (LIPITOR) 5-15 tablet by Sheng es 10 MG 00:00: mouth Medical tablet 00 daily. [place] atorvastati 2019-0 Yes 1{tbl} QD Take [address] [facility] (LIPITOR) 5-15 tablet by Sheng es 10 MG 00:00: mouth Medical tablet 00 daily. [place] atorvastati 2019-0 Yes 1{tbl} QD Take [address] [facility] (LIPITOR) 5-15 tablet by Sheng es 10 MG 00:00: mouth Medical tablet 00 daily. [place] atorvastati 2020-0 Yes 1{tbl} QD Take [address] [facility] (LIPITOR) 5-15 tablet by Sheng es 10 MG 00:00: mouth Medical tablet 00 daily. [place] atorvastati 2020-0 Yes 1{tbl} QD Take [address] [facility] (LIPITOR) 5-15 tablet by [facility]heng es 10 MG 00:00: mouth Medical tablet 00 daily. [place] atorvastati 2020-0 Yes 1{tbl} QD Take [address] [facility] (LIPITOR) 5-15 tablet by Sheng es 10 MG 00:00: mouth Medical tablet 00 daily. [place] aspirin 81 2020-0 No 1mg mg 3-04 [...] MG 00:00: daily . Medical tablet 00 [place] amLODIPine 2020-0 Yes 10mg QD Take [address] (NORVASC) 1-16 by [facility] 10 MG 00:00: daily . Medical tablet 00 [place] amLODIPine 2020-0 Yes 10mg QD Take [address] (NORVASC) 1-16 by [facility] 10 MG 00:00: daily . Medical tablet 00 [place] amLODIPine 2020-0 Yes 10mg QD Take [address] (NORVASC) 1-16 by mouth [facility] 10 MG 00:00: daily . Medical tablet 00 [place] amLODIPine 2020-0 Yes 10mg QD Take [address] (NORVASC) 1-16 by [facility] 10 MG 00:00: daily . Medical tablet 00 [place] amLODIPine 2020-0 Yes 10mg QD Take [address] (NORVASC) 1-16 by mouth [facility] 10 MG 00:00: daily . Medical tablet 00 [place] amLODIPine 2020-0 Yes 10mg QD Take [address] (NORVASC) [facility]: daily . Medical tablet 00 [place] amLODIPine 2020-0 Yes 10mg QD Take [address] [facility] (NORVASC) [facility] 00:00: daily . Medical tablet 00 [place] amLODIPine 2020-0 Yes 10mg QD Take [address] (NORVASC) 1-[facility] MG 00:00: daily . Medical tablet 00 [place] amLODIPine 2020-0 Yes 10mg QD Take [address] (NORVASC) 1-[facility] 00:00: daily . Medical tablet 00 [place] amLODIPine 2020-0 Yes 10mg QD Take [address] (NORVASC) 1-[facility] 00:00: daily . Medical tablet 00 [place] amLODIPine 2020-0 Yes 10mg QD Take [address] (NORVASC) 1-[facility] 10 MG 00:00: daily . Medical tablet 00 [place] amLODIPine 2020-0 Yes 10mg QD Take [address] (NORVASC) 1-[facility] MG 00:00: daily . Medical tablet 00 [place] amLODIPine 2020-0 Yes 10mg QD Take [address] (NORVASC) 1-[facility] 10 MG 00:00: daily . Medical tablet 00 [place] amLODIPine 2020-0 Yes 10mg QD Take [address] (NORVASC) 1-[facility] MG 00:00: daily . Medical tablet 00 [place] amLODIPine 2020-0 Yes 10mg QD Take [address] (NORVASC) 1-[facility] MG 00:00: daily . Medical tablet 00 [place] amLODIPine 2020-0 Yes 10mg QD Take [address] (NORVASC) 1-[facility] 10 MG 00:00: daily . Medical tablet 00 [place] amLODIPine 2020-0 Yes 10mg QD Take [address] (NORVASC) 1-[facility] MG 00:00: daily . Medical tablet 00 [place] amLODIPine 2020-0 Yes 10mg QD Take [address] (NORVASC) 1-[facility] MG 00:00: daily . Medical tablet 00 [place] amLODIPine 2020-0 Yes 10mg QD Take [address] (NORVASC) 1-[facility] 00:00: daily . Medical tablet 00 [place] amLODIPine 2020-0 Yes 10mg QD Take [address] (NORVASC) 1-[facility] 10 MG 00:00: daily . Medical tablet 00 [place] amLODIPine 2020-0 Yes 10mg QD Take [address] (NORVASC) 1-[facility] 00:00: daily . Medical tablet 00 [place] amLODIPine 2020-0 Yes 10mg QD Take [address] (NORVASC) 1-[facility] 00:00: daily . Medical tablet 00 [place] amLODIPine 2020-0 Yes 10mg QD Take [address] (NORVASC) 1-[facility] MG 00:00: daily . Medical tablet 00 [place] amLODIPine 2020-0 Yes 10mg QD Take [address] (NORVASC) 1-[facility] 00:00: daily . Medical tablet 00 [place] sevelamer 2020-0 Yes 800mg Q.[id number] [address] [facility] ([place]) 1-10 [id number] (three) [facility] 800 mg 00:00: 3D times Medical tablet 00 daily . [place] UNITHROID 2020-0 Yes 125ug QD Take [address] [facility] 125 mcg 1-10 mcg by [facility] 00:[facility]: mouth Medical 00 nightly . [place] aspirin 81 2020-0 No 1mg mg 1-10 [...] tablet 00:00: 00 sevelamer 2020-0 Yes 800mg Q.[id number] [address] [facility] ([place]) 1-10 [id number] (three) [facility] 800 mg 00:00: 3D times Medical tablet 00 daily . [place] UNITHROID 2020-0 Yes 125ug QD Take [address] [facility] 125 mcg 1-10 mcg by [facility] 00:[facility]: mouth Medical 00 nightly . [place] sevelamer 2020-0 Yes 800mg Q.[id number] [address] [facility] ([place]) 1-10 [id number] (three) [facility] 800 mg 00:00: 3D times Medical tablet 00 daily . [place] UNITHROID 2020-0 Yes 125ug QD Take [address] [facility] 125 mcg 1-10 mcg by [facility] 00:00: mouth Medical 00 nightly . [place] sevelamer 2020-0 Yes 800mg Q.[id number] [address] [facility] ([place]) 1-10 [id number] (three) [facility] 800 mg 00:00: 3D times Medical tablet 00 daily . [place] UNITHROID 2020-0 Yes 125ug QD Take [address] [facility] 125 mcg 1-10 mcg by [facility] 00:00: mouth Medical 00 nightly . [place] sevelamer 2020-0 Yes 800mg Q.[id number] [address] [facility] ([place]) 1-10 [id number] (three) [facility] 800 mg 00:00: 3D times Medical tablet 00 daily . [place] UNITHROID 2020-0 Yes 125ug QD Take [address] [facility] 125 mcg 1-10 mcg by [facility] 00:00: mouth Medical 00 nightly . [place] sevelamer 2020-0 Yes 800mg Q.[id number] [address] [facility] ([place]) 1-10 [id number] (three) [facility] 800 mg 00:00: 3D times Medical tablet 00 daily . [place] UNITHROID 2020-0 Yes 125ug QD Take [address] [facility] 125 mcg 1-10 mcg by [facility] 00:00: mouth Medical 00 nightly . [place] sevelamer 2020-0 Yes 800mg Q.[id number] [address] [facility] ([place]) 1-10 [id number] (three) [facility] 800 mg 00:00: 3D times Medical tablet 00 daily . [place] UNITHROID 2020-0 Yes 125ug QD Take [address] [facility] [address] 125 mcg 1-10 mcg by [facility] 00:00: mouth Medical 00 nightly . [place] sevelamer 2020-0 Yes 800mg Q.[id number] [address] [facility] ([place]) 1-10 [id number] (three) [facility] 800 mg 00:00: 3D times Medical tablet 00 daily . [place] UNITHROID 2020-0 Yes 125ug QD Take [address] [facility] [address] 125 mcg 1-10 mcg by [facility] 00:00: mouth Medical 00 nightly . [place] sevelamer 2020-0 Yes 800mg Q.[id number] [address] [facility] ([place]) 1-10 [id number] (three) [facility] 800 mg 00:00: 3D times Medical tablet 00 daily . [place] UNITHROID 2020-0 Yes 125ug QD Take [address] [facility] [address] 125 mcg 1-10 mcg by [facility] 00:00: mouth Medical 00 nightly . [place] sevelamer 2020-0 Yes 800mg Q.[id number] [address] [facility] ([place]) 1-10 [id number] (three) [facility] 800 mg 00:00: 3D times Medical tablet 00 daily . [place] UNITHROID 2020-0 Yes 125ug QD Take [address] [facility] [address] 125 mcg 1-10 mcg by [facility] 00:00: mouth Medical 00 nightly . [place] sevelamer 2020-0 Yes 800mg Q.[id number] [address] [facility] ([place]) 1-10 [id number] (three) [facility] 800 mg 00:00: 3D times Medical tablet 00 daily . [place] UNITHROID 2020-0 Yes 125ug QD Take [address] [facility] [address] 125 mcg 1-10 mcg by [facility] 00:00: mouth Medical 00 nightly . [place] sevelamer 2020-0 Yes 800mg Q.[id number] [address] [facility] ([place]) 1-10 [id number] (three) [facility] 800 mg 00:00: 3D times Medical tablet 00 daily . [place] UNITHROID 2020-0 Yes 125ug QD Take [address] [facility] [address] 125 mcg 1-10 mcg by [facility] 00:00: mouth Medical 00 nightly . [place] sevelamer 2020-0 Yes 800mg Q.[id number] [address] [facility] ([place]) 1-10 [id number] (three) [facility] 800 mg 00:00: 3D times Medical tablet 00 daily . [place] UNITHROID 2020-0 Yes 125ug QD Take [address] [facility] [address] 125 mcg 1-10 mcg by [facility] 00:00: mouth Medical 00 nightly . [place] sevelamer 2020-0 Yes 800mg Q.[id number] [address] [facility] ([place]) 1-10 [id number] (three) [facility] 800 mg 00:00: 3D times Medical tablet 00 daily . [place] UNITHROID 2020-0 Yes 125ug QD Take [address] [facility] [address] 125 mcg 1-10 mcg by [facility] 00:00: mouth Medical 00 nightly . [place] sevelamer 2020-0 Yes 800mg Q.[id number] [address] [facility] ([place]) 1-10 [id number] (three) [facility] 800 mg 00:00: 3D times Medical tablet 00 daily . [place] UNITHROID 2020-0 Yes 125ug QD Take [address] [facility] [address] 125 mcg 1-10 mcg by [facility] 00:00: mouth Medical 00 nightly . [place] sevelamer 2020-0 Yes 800mg Q.[id number] [address] [facility] ([place]) 1-10 [id number] (three) [facility] 800 mg 00:00: 3D times Medical tablet 00 daily . [place] UNITHROID 2020-0 Yes 125ug QD Take [address] [facility] [address] 125 mcg 1-10 mcg by [facility] 00:00: mouth Medical 00 nightly . [place] sevelamer 2020-0 Yes 800mg Q.[id number] [address] [facility] ([place]) 1-10 [id number] (three) [facility] 800 mg 00:00: 3D times Medical tablet 00 daily . [place] UNITHROID 2020-0 Yes 125ug QD Take [address] [facility] [address] 125 mcg 1-10 mcg by [facility] 00:00: mouth Medical 00 nightly . [place] sevelamer 2020-0 Yes 800mg Q.[id number] [address] [facility] ([place]) 1-10 [id number] (three) [facility] 800 mg 00:00: 3D times Medical tablet 00 daily . [place] UNITHROID 2020-0 Yes 125ug QD Take [address] [facility] [address] 125 mcg 1-10 mcg by [facility] 00:00: mouth Medical 00 nightly . [place] sevelamer 2020-0 Yes 800mg Q.[id number] [address] [facility] ([place]) 1-10 [id number] (three) [facility] 800 mg 00:00: 3D times Medical tablet 00 daily . [place] UNITHROID 2020-0 Yes 125ug QD Take [address] [facility] [address] 125 mcg 1-10 mcg by [facility] 00:00: mouth Medical 00 nightly . [place] sevelamer 2020-0 Yes 800mg Q.[id number] [address] [facility] ([place]) 1-10 [id number] (three) [facility] 800 mg 00:00: 3D times Medical tablet 00 daily . [place] UNITHROID 2020-0 Yes 125ug QD Take [address] [facility] [address] 125 mcg 1-10 mcg by [facility] 00:00: mouth Medical 00 nightly . [place] sevelamer 2020-0 Yes 800mg Q.[id number] [address] [facility] ([place]) 1-10 [id number] (three) [facility] 800 mg 00:00: 3D times Medical tablet 00 daily . [place] UNITHROID 2020-0 Yes 125ug QD Take [address] [facility] [address] 125 mcg 1-10 mcg by [facility] 00:00: mouth Medical 00 nightly . [place] sevelamer 2020-0 Yes 800mg Q.[id number] [address] [facility] ([place]) 1-10 [id number] (three) [facility] 800 mg 00:00: 3D times Medical tablet 00 daily . [place] UNITHROID 2020-0 Yes 125ug QD Take [address] [facility] [address] 125 mcg 1-10 mcg by [facility] 00:00: mouth Medical 00 nightly . [place] sevelamer 2020-0 Yes 800mg Q.[id number] [address] [facility] ([place]) 1-10 [id number] (three) [facility] 800 mg 00:00: 3D times Medical tablet 00 daily . [place] UNITHROID 2020-0 Yes 125ug QD Take [address] [facility] [address] 125 mcg 1-10 mcg by [facility] 00:00: mouth Medical 00 nightly . [place] sevelamer 2020-0 Yes 800mg Q.[id number] [address] [facility] ([place]) 1-10 [id number] (three) [facility] 800 mg 00:00: 3D times Medical tablet 00 daily . [place] UNITHROID 2020-0 Yes 125ug QD Take [address] [facility] [address] 125 mcg 1-10 mcg by [facility] 00:00: mouth Medical 00 nightly . [place] sevelamer 2020-0 Yes 800mg Q.[id number] [address] [facility] ([place]) 1-10 [id number] (three) [facility] 800 mg 00:00: 3D times Medical tablet 00 daily . [place] UNITHROID 2020-0 Yes 125ug QD Take [address] [facility] [address] 125 mcg 1-10 mcg by [facility] 00:00: mouth Medical 00 nightly . [place] amlodipine 2020-0 No 1mg 10 mg 1-08 [...] 125 mcg 2-04 tablet 00:00: 00 amlodipine 2018-1 No 1mg 10 mg 1-19 tablet 00:00: 00 aspirin 81 2018- No 1mg mg 1-19 tablet,girma 00:00: yed release 00 atorvastati 2018-1 No 1mg n 10 mg 1-19 tablet 00:00: 00 calcium 2018-1 No 1(1,250 carbonate 1-19 mg) 500 mg 00:00: calcium 00 (1,250 mg) chewable tablet amlodipine 2018-1 No 1mg 10 mg 1-19 tablet 00:00: 00 aspirin 81 2018-1 No 1mg mg 1-19 tablet,girma 00:00: yed release 00 atorvastati 2019-1 No 1mg n 10 mg 1-19 tablet 00:00: 00 calcium 2019-1 No 1(1,250 carbonate 1-19 mg) 500 mg 00:00: calcium 00 (1,250 mg) chewable tablet amlodipine 2018-1 No 1mg 10 mg 1-19 tablet 00:00: [...] 1-12 capsule 00:00: 00 gabapentin 2018-05 Yes [id number] 100mg Take 1 [facility] 100 mg 0-22 capsule by [facility] capsule 00:00: mouth 3 00 (three) Medical times Branch daily. gabapentin 2018-05 Yes [id number] 100mg Take 1 [facility] 100 mg 0-22 capsule by [facility] of capsule 00:00: mouth 3 00 (three) Medical times Branch daily. gabapentin 2018-05 Yes [id number] 100mg Take 1 [facility] 100 mg 0-22 capsule by [facility] of capsule 00:00: mouth 3 00 (three) Medical times Branch daily. aspirin [...] 1mg mg 0-01 tablet,girma 00:00: yed release amlodipine 2018-05 No 1mg 5 mg tablet [...] chewable tablet calcium 2019-1 No 1(1,250 carbonate 0-01 mg) 500 mg 00:00: calcium 00 (1,250 mg) chewable tablet levothyroxi 2018-05 No 1mcg ne 200 mcg 0-01 tablet 00:00: 00 levothyroxi 2018-05 No 1mcg ne 200 mcg 0-01 tablet 00:00: 00 amLODIPine Yes [id number] 10mg Take 1 [facility] n[facility] 10 mg 9-16 tablet by [facility] of tablet 00:00: mouth [place] 00 daily. Medical Branch aspirin 81 Yes [id number] 81mg Take 1 [facility] mg chewable 9-16 tablet by [facility]y of tablet 00:00: mouth [place] 00 daily. Medical Branch atorvastati Yes [id number] 40mg Take 2 [facility] n 20 mg 9-16 tablets by [facility] of tablet 00:00: mouth at [place] 00 bedtime. Medical Branch calcium Yes [id number] 1000mg Take 2 U nivers carbonate 9-16 tablets by ity of (CALCIUM 00:00: mouth 3 [place] 500) 500 mg 00 (three) Medic al calcium times Branch (1,250 mg) daily with tablet meals. meclizine Yes [id number] 25mg Take 2 U nivers 12.5 mg 9-16 tablets by ity of tablet 00:00: mouth 3 [place] 00 (three) Medical times Branch daily as needed for Dizziness. Para mareo (for dizziness) sevelamer Yes [id number] 800mg Take 1 [facility] 800 mg 9-16 tablet by [facility]y of tablet 00:00: mouth 3 [place] 00 (three) Medical times Branch daily with meals. amLODIPine Yes [id number] 10mg Take 1 [facility] nivers 10 mg 9-16 tablet by [facility]y of tablet 00:00: mouth [place] 00 daily. Medical Branch aspirin 81 Yes [id number] 81mg Take 1 [facility] mg chewable 9-16 tablet by [facility]y of tablet 00:00: mouth [place] 00 daily. Medical Branch atorvastati Yes [id number] 40mg Take 2 [facility] n 20 mg 9-16 tablets by [facility]y of tablet 00:00: mouth at [place] 00 bedtime. Medical Branch calcium Yes [id number] 1000mg Take 2 U nivers carbonate 9-16 tablets by ity of (CALCIUM 00:00: mouth 3 [place] 500) 500 mg 00 (three) Medic al calcium times Branch (1,250 mg) daily with tablet meals. meclizine 2019-0 Yes [id number] 25mg Take 2 U nivers 12.5 mg 9-16 tablets by ity of tablet 00:00: mouth 3 [place] 00 (three) Medical times Branch daily as needed for Dizziness. [place] (for dizziness) sevelamer 2019-0 Yes [id number] 800mg Take 1 [facility] 800 mg 9-16 tablet by [facility]y of tablet 00:00: mouth 3 00 (three) Medical times Branch daily with meals. amLODIPine 2019-0 Yes [id number] 10mg Take 1 [facility] n[facility] 10 mg 9-16 tablet by [facility]y of tablet 00:00: mouth [place] 00 daily. Medical Branch aspirin 81 2019-0 Yes [id number] 81mg Take 1 [facility] mg chewable 9-16 tablet by [facility]y of tablet 00:00: mouth [place] 00 daily. Medical Branch atorvastati 2018-0 Yes [id number] 40mg Take 2 [facility] n 20 mg 9-16 tablets by [facility]y of tablet 00:00: mouth at [place] 00 bedtime. Medical Branch calcium 2019-0 Yes [id number] 1000mg Take 2 U nivers carbonate 9-16 tablets by ity of (CALCIUM 00:00: mouth 3 500) 500 mg 00 (three) Medic al calcium times Branch (1,250 mg) daily with tablet meals. meclizine 2019-0 Yes [id number] 25mg Take 2 U nivers 12.5 mg 9-16 tablets by ity of tablet 00:00: mouth 3 00 (three) Medical times Branch daily as needed for Dizziness. [place] (for dizziness) sevelamer 2019-0 Yes [id number] 800mg Take 1 [facility] 800 mg 9-16 tablet by [facility]y of tablet 00:00: mouth 3 00 (three) Medical times Branch daily with [...] Status Comments Sourc e Immunization Name Name Moderned COVID-19 2021-12-02 Completed Vaccine 00:00:00 Moderna COVID-19 [...] 2018-03-07 Completed [facility] o f Polysaccharide, 00:00:00 [place] [facility] PPSV23 (PNEUMOVAX) Branch Pneumococcal 2018-03-07 Completed University o f Polysaccharide, 00:00:00 [place] [facility] ical PPSV23 (PNEUMOVAX) Branch Pneumococcal 2018-03-07 Completed University o f Polysaccharide, 00:00:00 [place] [facility] ical PPSV23 (PNEUMOVAX) Branch Vital Signs Vital Name Observation Time Observation Value Comments Source HEIGHT 2019-11-07 00:00:00 162.6 cm WEIGHT 2019-11-07 00:00:00 76.4 kg Systolic blood 2021-12-02 19:06:00 116 mm[Hg] Univer sity of pressure [facility] Diastolic blood 2021-12-02 19:06:00 68 mm[Hg] Unive rsity of pressure [facility] Heart rate 2021-12-02 19:06:00 69 /min [facility] Body height 2021-12-02 19:06:00 162.6 cm [facility] Body weight 2021-12-02 19:06:00 78.019 kg [facility] BMI 2021-12-02 19:06:00 29.52 kg/m2 [facility] Oxygen saturation in 2021-12-02 19:06:00 95 /min [facility] blood by [facility] Pulse oximetry Branch HEIGHT 2019-11-07 00:00:00 [...] Performed REFERRAL- 2022-05-28 06:01:00 [facility] REQUEST/RESPONSE Name Medical Branch [id number] 2022-04-17 00:00:00 [facility] [id number] 2022-04-08 00:00:00 [facility] [...] Ended)] Future Scheduled 2022-08-02 COVID-19 VACCINE (#1) [facility] Test 10:59:50 [code = COVID-19 VACCINE [...] Future Scheduled 2022-08-02 [facility]IN[facility] 10:59:50 of 2) [code = SHINGLES VACCINES (1 of 2)] Future Scheduled 2022-08-02 INFLUENZA VACCINE [facility] Test 10:59:50 [code = INFLUENZA VACCINE] Future Scheduled 2022-08-02 COVID[facility] 10:59:50 [code = COVID-19 VACCINE (#1)] Future Scheduled 2022-08-02 COLONOSCOPY SCREENING [facility] Test 10:59:50 [code = COLONOSCOPY SCREENING] Future Scheduled 2022-08-02 SHINGLES VACCINES (1 [facility] Test 10:59:50 of 2) [code = SHINGLES VACCINES (1 of 2)] Future Scheduled 2022-08-02 INFLUENZA VACCINE [facility] Test 10:59:50 [code = INFLUENZA VACCINE] Future Scheduled 2022-07-[address] [facility]00 (procedure) [code = [facility] [id number]] Future Scheduled 2022-07-[address] [facility] Test 00:00:00 (procedure) [code = [facility] [id number]] Future Scheduled 2022-07-[address] [facility] Test 00:00:00 (procedure) [code = [facility] [id number]] Future Scheduled 2022-07-[address] [facility] Test 00:00:00 (procedure) [code = [facility] [id number]] Future Scheduled 2022-07-[address] [facility] Test 00:00:00 (procedure) [code = [facility] Center [id number]] Future Scheduled 2022-07-[address] [facility] Test 00:00:00 (procedure) [code = [facility] [id number]] Future Scheduled 2022-07-[address] [facility] Test 00:00:00 (procedure) [code = [facility] [id number]] Future Scheduled 2022-07-[address] [facility] Test 00:00:00 (procedure) [code = [facility] Center [id number]] Future Scheduled 2022-07-[address] [facility] Test 00:00:00 (procedure) [code = [facility] Center [id number]] Future Scheduled 2022-07-[address] [facility] Test 00:00:00 (procedure) [code = [facility] [id number]] Future Scheduled 2022-07-[address] [facility] Test 00:00:00 (procedure) [code = [facility] [id number]] Future Scheduled 2022-07-[address] [facility] Test 00:00:00 (procedure) [code = [facility] Center [id number]] Future Scheduled 2022-07-[address] [facility] Test 00:00:00 (procedure) [code = [facility] Center [id number]] Future Scheduled 2022-07-[address] [facility] Test 00:00:00 (procedure) [code = [facility] [id number]] Future Scheduled 2022-07-[address] [facility] Test 00:00:00 (procedure) [code = [facility] [id number]] Future Scheduled 2022-07-[address] [facility] Test 00:00:00 (procedure) [code = [facility] [id number]] Future Scheduled 2022-07-[address] [facility] Test 00:00:00 (procedure) [code = [facility] [id number]] Future Scheduled 2022-07-[address] [facility] Test 00:00:00 (procedure) [code = [facility] [id number]] Future Scheduled 2022-07-[address] [facility] Test 00:00:00 (procedure) [code = [facility] [id number]] Future Scheduled 2022-07-[address] [facility] Test 00:00:00 (procedure) [code = [facility] Center [id number]] Future Scheduled 2022-07-[address] [facility] Test 00:00:00 (procedure) [code = [facility] Center [id number]] Future Scheduled 2022-07-[address] [facility] Test 00:00:00 (procedure) [code = [facility] Center [id number]] Future Scheduled 2022-07-[address] [facility] Test 00:00:00 (procedure) [code = [facility] Center [id number]] Future Scheduled 2022-07-[address] [facility] Test 00:00:00 (procedure) [code = [facility] Center [id number]] Future Scheduled 2022-07-[address] [facility] Test 00:00:00 (procedure) [code = [facility] Center [id number]] Future Scheduled 2022-06-15 COVID[facility] 10:12:43 [code = COVID-19 VACCINE (#1)] Future Scheduled 2022-06-15 COLONOSCOPY SCREENING [facility] Test 10:12:43 [code = COLONOSCOPY SCREENING] Future Scheduled 2022-06-15 SHINGLES VACCINES (1 [facility] Test 10:12:43 of 2) [code = SHINGLES VACCINES (1 of 2)] Future Scheduled 2022-06-15 INFLUENZA VACCINE [facility] Test 10:12:43 [code = INFLUENZA VACCINE] Future Scheduled 2022-06-15 COVID[facility] 10:12:43 [code = COVID-19 VACCINE (#1)] Future Scheduled 2022-06-15 [facility] 10:12:43 [code = COLONOSCOPY SCREENING] Future Scheduled 2022-06-15 SHINGLES VACCINES ([facility] 10:12:43 of 2) [code = SHINGLES VACCINES (1 of 2)] Future Scheduled 2022-06-15 INFLUENZA VACCINE [facility] Test 10:12:43 [code = INFLUENZA VACCINE] Future Scheduled 2022-06-15 COVID-19 [facility]ACCINE (#[facility] 10:12:43 [code = COVID-19 VACCINE (#1)] Future Scheduled 2022-06-15 [facility] 10:12:43 [code = COLONOSCOPY SCREENING] Future Scheduled 2022-06-15 SHINGLES VACCINES ([facility] 10:12:43 of 2) [code = SHINGLES VACCINES (1 of 2)] Future Scheduled 2022-06-15 INFLUENZA VACCINE [facility] Test 10:12:43 [code = INFLUENZA VACCINE] Future Scheduled 2022-05-28 COVID[facility]INE (#[facility] 09:36:27 [code = COVID-19 VACCINE (#1)] Future Scheduled 2022-05-28 [facility]ENING [facility] 09:36:27 [code = COLONOSCOPY SCREENING] Future Scheduled 2022-05-28 SHINGLES VACCINES (1 [facility] 09:36:27 of 2) [code = SHINGLES VACCINES (1 of 2)] Future Scheduled 2022-05-28 INFLUENZA VACCINE [facility] Test 09:36:27 [code = INFLUENZA VACCINE] Future Scheduled 2022-05-28 COVID-19 [facility]ACCINE (#[facility] 09:36:27 [code = COVID-19 VACCINE (#1)] Future Scheduled 2022-05-28 [facility]ING [facility] 09:36:27 [code = COLONOSCOPY SCREENING] Future Scheduled 2022-05-28 SHINGLES VACCINES (1 [facility] 09:36:27 of 2) [code = SHINGLES VACCINES (1 of 2)] Future Scheduled 2022-05-28 INFLUENZA VACCINE [facility] Test 09:36:27 [code = INFLUENZA VACCINE] Future Scheduled 2022-05-11 COVID-19 [facility]ACCINE (#[facility] 00:38:04 [code = COVID-19 VACCINE (#1)] Future Scheduled 2022-05-11 [facility] 00:38:04 [code = COLONOSCOPY SCREENING] Future Scheduled 2022-05-11 SHINGLES VACCINES (1 [facility] 00:38:04 of 2) [code = SHINGLES VACCINES (1 of 2)] Future Scheduled 2022-05-11 INFLUENZA VACCINE [facility] Test 00:38:04 [code = INFLUENZA VACCINE] Future Scheduled 2022-05-11 COVID-19 VACCINE (#1) [facility] 00:38:04 [code = COVID-19 VACCINE (#1)] Future Scheduled 2022-05-11 [facility]ONOSCOPY SCREENING [facility] 00:38:04 [code = COLONOSCOPY SCREENING] [...] (12+)] Future Scheduled 2022-04-23 COVID-19 [facility]ACCINE (#[facility]) [facility] 11:12:56 [code = COVID-19 VACCINE (#1)] Future Scheduled 2022-04-23 [facility] 11:12:56 [code = COLONOSCOPY SCREENING] Future Scheduled 2022-04-23 SHINGLES VACCINES ([facility] 11:12:56 of 2) [code = SHINGLES VACCINES (1 of 2)] Future Scheduled 2022-04-23 INFLUENZA VACCINE [facility] Test 11:12:56 [code = INFLUENZA VACCINE] Future Scheduled 2022-04-20 COVID-19 VACCINE (#1) [facility] Test 13:44:31 [code = COVID-19 VACCINE (#1)] Future Scheduled 2022-04-20 [facility] 13:44:31 [code = COLONOSCOPY SCREENING] Future Scheduled 2022-04-20 SHINGLES VACCINES ([facility] 13:44:31 of 2) [code = SHINGLES VACCINES (1 of 2)] Future Scheduled 2022-04-20 INFLUENZA VACCINE [facility] Test 13:44:31 [code = INFLUENZA VACCINE] Future Scheduled 2022-04-20 COVID-19 VACCINE (#1) [facility] 13:44:31 [code = COVID-19 VACCINE (#1)] Future Scheduled 2022-04-20 [facility] 13:44:31 [code = COLONOSCOPY SCREENING] Future Scheduled 2022-04-20 SHINGLES VACCINES (1 [facility] [facility] Test 13:44:31 of 2) [code = SHINGLES VACCINES (1 of 2)] Future Scheduled 2022-04-20 INFLUENZA VACCINE [facility] 13:44:31 [code = INFLUENZA VACCINE] Future Scheduled 2022-04-20 COVID-19 [facility]ACCINE (#[facility]) [facility] 13:44:31 [code = COVID-19 VACCINE (#1)] Future Scheduled 2022-04-20 COLONOSCOPY SCREENING [facility] Test 13:44:31 [code = COLONOSCOPY SCREENING] Future Scheduled 2022-04-20 SHINGLES VACCINES (1 Met [facility] Test 13:44:31 of 2) [code = SHINGLES VACCINES (1 of 2)] Future Scheduled 2022-04-20 INFLUENZA VACCINE [facility] 13:44:31 [code = INFLUENZA VACCINE] Future Scheduled 2022-04-20 COVID-19 VACCINE (#1) [facility] Test 13:44:31 [code = COVID-19 VACCINE (#1)] Future Scheduled 2022-04-20 COLONOSCOPY SCREENING [facility] Test 13:44:31 [code = COLONOSCOPY SCREENING] Future Scheduled 2022-04-20 SHINGLES VACCINES (1 Met [facility] Test 13:44:31 of 2) [code = SHINGLES VACCINES (1 of 2)] Future Scheduled 2022-04-20 INFLUENZA VACCINE Method [facility] Test 13:44:31 [code = INFLUENZA VACCINE] Future Scheduled 2022-03-04 HEPATITIS B VACCINES Met [facility] Test 13:56:11 (1 of 3 - 3-dose series) [code = HEPATITIS B VACCINES (1 of 3 - 3-dose series)] Future Scheduled 2022-03-04 COVID-19 VACCINE (#1) [facility] Test 13:56:11 [code = COVID-19 VACCINE (#1)] Future Scheduled 2022-03-04 COLONOSCOPY SCREENING [facility] Test 13:56:11 [code = COLONOSCOPY SCREENING] Future Scheduled 2022-03-04 SHINGLES VACCINES (1 Met [facility] Test 13:56:11 of 2) [code = SHINGLES VACCINES (1 of 2)] Future Scheduled 2022-03-04 INFLUENZA VACCINE [facility] 13:56:11 [code = INFLUENZA VACCINE] Future Scheduled 2022-03-04 HEPATITIS B VACCINES Met [facility] Test 13:56:11 (1 of 3 - 3-dose series) [code = HEPATITIS B VACCINES (1 of 3 - 3-dose series)] Future Scheduled 2022-03-04 COVID-19 VACCINE (#1) [facility] Test 13:56:11 [code = COVID-19 VACCINE (#1)] Future Scheduled 2022-03-04 COLONOSCOPY SCREENING [facility] Test 13:56:11 [code = COLONOSCOPY SCREENING] Future Scheduled 2022-03-04 SHINGLES VACCINES (1 Met [facility] Test 13:56:11 of 2) [code = SHINGLES VACCINES (1 of 2)] Future Scheduled 2022-03-04 INFLUENZA VACCINE [facility] 13:56:11 [code = INFLUENZA VACCINE] Future Scheduled 2022-03-04 HEPATITIS B VACCINES Met [facility] Test 13:56:11 (1 of 3 - 3-dose series) [code = HEPATITIS B VACCINES (1 of 3 - 3-dose series)] Future Scheduled 2022-03-04 COVID-19 VACCINE (#1) [facility] Test 13:56:11 [code = COVID-19 VACCINE (#1)] Future Scheduled 2022-03-04 COLONOSCOPY SCREENING [facility] Test 13:56:11 [code = COLONOSCOPY SCREENING] Future Scheduled 2022-03-04 SHINGLES VACCINES (1 Met [facility] Test 13:56:11 of 2) [code = SHINGLES VACCINES (1 of 2)] Future Scheduled 2022-03-04 INFLUENZA VACCINE Method [facility] Test 13:56:11 [code = INFLUENZA VACCINE] Future Scheduled 2022-02-08 HEPATITIS B VACCINES Met [facility] Test 14:31:50 (1 of 3 - 3-dose series) [code = HEPATITIS B VACCINES (1 of 3 - 3-dose series)] Future Scheduled 2022-02-08 COVID-19 VACCINE (#1) [facility] Test 14:31:50 [code = COVID-19 VACCINE (#1)] Future Scheduled 2022-02-08 COLONOSCOPY SCREENING [facility] Test 14:31:50 [code = COLONOSCOPY SCREENING] Future Scheduled 2022-02-08 SHINGLES VACCINES (1 Met [facility] Test 14:31:50 of 2) [code = SHINGLES VACCINES (1 of 2)] Future Scheduled 2022-02-08 INFLUENZA VACCINE Method [facility] Test 14:31:50 [code = INFLUENZA VACCINE] Future Scheduled 2022-01-03 HEPATITIS B VACCINES Met [facility] Test 04:21:26 (1 of 3 - 3-dose series) [code = HEPATITIS B VACCINES (1 of 3 - 3-dose series)] Future Scheduled 2022-01-03 COVID-19 VACCINE (#1) [facility] Test 04:21:26 [code = COVID-19 VACCINE (#1)] Future Scheduled 2022-01-03 Pneumococcal Vaccine: [facility] Test 04:21:26 Pediatrics (0 to 5 Years) and At-Risk Patients (6 to 64 Years) (1 - PCV) [code = Pneumococcal Vaccine: Pediatrics (0 to 5 Years) and At-Risk Patients (6 to 64 Years) (1 - PCV)] Future Scheduled 2022-01-03 Hepatitis C screening [facility] Test 04:21:26 (procedure) [code = 602031877] Future Scheduled 2022-01-03 SHINGLES VACCINES (1 [facility] Test 04:21:26 of 2) [code = SHINGLES VACCINES (1 of 2)] Future Scheduled 2022-01-03 COLONOSCOPY SCREENING [facility] Test 04:21:26 [code = COLONOSCOPY SCREENING] Future Scheduled 2022-01-03 INFLUENZA VACCINE Method [facility] Test 04:21:26 [code [...] (#1)] Future Scheduled 2021-12-27 HEPATITIS B VACCINES [facility] Test 10:00:17 (1 of 3 - 3-dose series) [code = HEPATITIS B VACCINES (1 of 3 - 3-dose series)] Future Scheduled 2021-12-27 COVID-19 VACCINE (#1) [facility] Test 10:00:17 [code = COVID-19 VACCINE (#1)] Future Scheduled 2021-12-27 Pneumococcal Vaccine: [facility] Test 10:00:17 Pediatrics (0 to 5 Years) and At-Risk Patients (6 to 64 Years) (1 - PCV) [code = Pneumococcal Vaccine: Pediatrics (0 to 5 Years) and At-Risk Patients (6 to 64 Years) (1 - PCV)] Future Scheduled 2021-12-27 Hepatitis C screening [facility] Test 10:00:17 (procedure) [code = 731763730] Future Scheduled 2021-12-27 SHINGLES VACCINES (1 Met [facility] Test 10:00:17 of 2) [code = SHINGLES VACCINES (1 of 2)] Future Scheduled 2021-12-27 COLONOSCOPY SCREENING [facility] Test 10:00:17 [code = COLONOSCOPY SCREENING] Future Scheduled 2021-12-27 INFLUENZA VACCINE Method [facility] Test 10:00:17 [code = INFLUENZA VACCINE] [facility] (12[facility] [code = [facility] DEPRESSION SCREENING (12+)] Future Scheduled 2021-05-[address] [facility] Test 00:00:00 (12+) [code = [facility] DEPRESSION SCREENING (12+)] Future Scheduled 2020-12-13 [...] 00:00:00 measurement [facility] Center (procedure) [code = 70889788] Future Scheduled 2020-01-[address] [facility] (procedure) [code = 83225697] Future Scheduled 2020-01-[address] [facility] 00:[facility]:00 [facility] (procedure) [code = 15485298] Future Scheduled 2020-01-[address] [facility] 00:00:00 measurement [facility] (procedure) [code = 25759038] Future Scheduled 2020-01-[address] [facility] 00:00:00 [facility] (procedure) [code = 95398789] Future Scheduled 2020-01-[address] [facility] 00:[facility]:00 measurement [facility] (procedure) [code = 89485098] Future Scheduled 2020-01-[address] [facility] 00:00:00 measurement [facility] (procedure) [code = 28747202] Future Scheduled 2020-01-[address] [facility] 00:[facility]:00 [facility] (procedure) [code = 60904677] Future Scheduled 2020-01-[address] [facility] 00:00:00 [facility] (procedure) [code = 67762285] Future Scheduled 2020-01-[address] [facility] 00:00:00 measurement [facility] (procedure) [code = 58381119] Future Scheduled 2020-01-[address] [facility] 00:00:00 measurement [facility] (procedure) [code = 92040035] Future Scheduled 2020-01-[address] [facility] 00:00:00 measurement [facility] (procedure) [code = 80902624] Future Scheduled 2020-01-[address] [facility] 00:00:00 measurement [facility] (procedure) [code = 11295812] Future Scheduled 2020-01-[address] [facility] 00:00:00 measurement [facility] (procedure) [code = 22894796] Future Scheduled 2020-01-[address] [facility] 00:00:00 measurement [facility] (procedure) [code = 62311497] Future Scheduled 2020-01-[address] [facility] 00:00:00 measurement [facility] (procedure) [code = 37504709] Future Scheduled 2020-01-[address] [facility] 00:00:00 measurement [facility] (procedure) [code = 11931720] Future Scheduled 2020-01-[address] [facility] 00:00:00 measurement [facility] (procedure) [code = 89935566] Future Scheduled 2020-01-[address] [facility] 00:00:00 measurement [facility] (procedure) [code = 26956274] Future Scheduled 2020-01-[address] [facility] 00:00:00 measurement [facility] (procedure) [code = 71375048] Future Scheduled 2020-01-[address] [facility] 00:00:00 measurement [facility] (procedure) [code = 73957623] Future Scheduled 2020-01-[address] [facility] 00:00:00 measurement [facility] (procedure) [code = 58544411] Future Scheduled 2020-01-[address] [facility] 00:00:00 measurement [facility] (procedure) [code = 86968065] Future Scheduled 2020-01-[address] [facility] 00:00:00 measurement [facility] (procedure) [code = 38701714] Future Scheduled 2020-01-[address] [facility] 00:00:00 measurement [facility] (procedure) [code = 20030407] Future Scheduled 2019-11-[address] [...] VACCINES (1 - Tdap)] Future Scheduled [address] [facility] 00:[facility]00 examination Medical Center (regime/therapy) [code = 224972031] Future Scheduled 1975 Urine screening [facility] 00:00:00 protein (procedure) Medical Center [code = 600106567] Future Scheduled 1975 DIABETIC EYE EXAM [facility] 00:00:00 [code = DIABETIC EYE Medical Center EXAM] Future Scheduled [address] [facility] 00:00:00 examination Medical Center (regime/therapy) [code = 667993756] Future Scheduled 1975 Urine screening for [facility] 00:00:00 protein (procedure) Medical Center [code = 264534020] Future Scheduled [address] DIABETIC EYE EXAM [facility] 00:00:00 [code = DIABETIC EYE Medical Center EXAM] Future Scheduled [address] [facility] 00:00:00 examination Medical Center (regime/therapy) [code = 899160036] Future Scheduled 1975 Urine screening for [facility] 00:00:00 protein (procedure) Medical Center [code = 296429245] Future Scheduled [address] DIABETIC EYE EXAM [facility] 00:00:00 [code = DIABETIC EYE Medical Center EXAM] Future Scheduled [address] [facility] 00:00:00 examination Medical Center (regime/therapy) [code = 060660418] Future Scheduled 1975 Urine screening for [facility] 00:00:00 protein (procedure) Medical Center [code = 398590817] Future Scheduled [address] DIABETIC EYE EXAM [facility] 00:00:00 [code = DIABETIC EYE Medical Center EXAM] Future Scheduled [address] [facility] 00:00:00 examination [facility] Center (regime/therapy) [code = 528015275] Future Scheduled 1975 Urine screening [facility] 00:00:00 protein (procedure) Medical Center [code = 379319641] Future Scheduled [address] DIABETIC EYE EXAM [facility] 00:00:00 [code = DIABETIC EYE Medical Center EXAM] Future Scheduled [address] [facility] 00:00:00 examination Medical Center (regime/therapy) [code = 306938019] Future Scheduled 1975 Urine screening for [facility] 00:00:00 protein (procedure) Medical Center [code = 715671769] Future Scheduled [address] DIAB[address] EYE EXAM [facility] 00:00:00 [code = DIABETIC EYE Medical Center EXAM] Future Scheduled [address] [facility] 00:00:00 examination Medical Center (regime/therapy) [code = 390246968] Future Scheduled 1975 Urine screening for [facility] 00:00:00 protein (procedure) Medical Center [code = 106179396] Future Scheduled [address] DIABETIC EYE EXAM [facility] 00:00:00 [code = DIABETIC EYE Medical Center EXAM] Future Scheduled [address] [facility] 00:00:00 examination Medical Center (regime/therapy) [code = 592448303] Future Scheduled 1975 Urine screening for [facility] 00:00:00 protein (procedure) Medical Center [code = 583458155] Future Scheduled [address] DIAB[address] EYE EXAM [facility] 00:00:00 [code = DIABETIC EYE Medical Center EXAM] Future Scheduled [address] [facility] 00:00:00 examination Medical Center (regime/therapy) [code = 170237420] Future Scheduled 1975 Urine screening for [facility] 00:00:00 protein (procedure) Medical Center [code = 387680575] Future Scheduled [address] DIABETIC EYE EXAM [facility] 00:00:00 [code = DIABETIC EYE Medical Center EXAM] Future Scheduled [address] [facility] 00:00:00 examination Medical Center (regime/therapy) [code = 120690871] Future Scheduled 1975 Urine screening [facility] 00:00:00 protein (procedure) Medical Center [code = 676926066] Future Scheduled [address] DIAB[address] EYE EXAM [facility] 00:00:00 [code = DIABETIC EYE Medical Center EXAM] Future Scheduled [address] [facility] 00:00:00 examination Medical Center (regime/therapy) [code = 692900844] Future Scheduled 1975 Urine screening for [facility] 00:00:00 protein (procedure) Medical Center [code = 062110949] Future Scheduled [address] DIABETIC EYE EXAM [facility] 00:00:00 [code = DIABETIC EYE Medical Center EXAM] Future Scheduled [address] [facility] 00:00:00 examination [facility] Center (regime/therapy) [code = 517429305] Future Scheduled 1975 Urine screening for [facility] 00:00:00 protein (procedure) Medical Center [code = 653425436] Future Scheduled [address] DIAB[address]IC EYE EXAM [facility] 00:00:00 [code = DIABETIC EYE Medical Center EXAM] Future Scheduled [address] [facility] 00:00:00 examination Medical Center (regime/therapy) [code = 897828374] Future Scheduled 1975 Urine screening for [facility] 00:00:00 protein (procedure) Medical Center [code = 321823885] Future Scheduled [address] DIABET[address] EYE EXAM [facility] 00:00:00 [code = DIABETIC EYE Medical Center EXAM] Future Scheduled [address] [facility] 00:00:00 examination Medical Center (regime/therapy) [code = 532999309] Future Scheduled 1975 Urine screening [facility] 00:00:00 protein (procedure) Medical Center [code = 614070645] Future Scheduled [address] DIAB[address] EYE EXAM [facility] 00:00:00 [code = DIABETIC EYE Medical [facility] EXAM] Future Scheduled [address] [facility] 00:00:00 examination Medical Center (regime/therapy) [code = 790334387] Future Scheduled 1975 Urine screening [facility] 00:00:00 protein (procedure) Medical Center [code = 998938659] Future Scheduled [address]AB[address] EYE EXAM [facility] 00:00:00 [code = DIABETIC EYE Medical Center EXAM] Future Scheduled [address] [facility] 00:00:00 examination Medical Center (regime/therapy) [code = 545250614] Future Scheduled 1975 Urine screening for [facility] 00:00:00 protein (procedure) Medical Center [code = 595194352] Future Scheduled [address] DIABETIC EYE EXAM [facility] 00:00:00 [code = DIABETIC EYE Medical Center EXAM] Future Scheduled [address]AB[address] EYE EXAM [facility] 00:00:00 [code = DIABETIC EYE Medical Center EXAM] Future Scheduled [address] [facility] 00:00:00 examination Medical Center (regime/therapy) [code = 649045442] Future Scheduled 1975 Urine screening for [facility] 00:00:00 protein (procedure) Medical Center [code = 897148586] Future Scheduled [address] [facility] 00:00:00 examination [facility] Center (regime/therapy) [code = 073568926] Future Scheduled 1975 Urine screening for [facility] 00:00:00 protein (procedure) Medical Center [code = 707087266] Future Scheduled [address] DIAB[address] EYE EXAM [facility] 00:00:00 [code = DIABETIC EYE Medical Center EXAM] Future Scheduled [address] [facility] 00:00:00 examination Medical Center (regime/therapy) [code = 006069153] Future Scheduled 1975 Urine screening for [facility] 00:00:00 protein (procedure) Medical Center [code = 143710092] Future Scheduled [address] DIABETIC EYE EXAM [facility] 00:00:00 [code = DIABETIC EYE Medical Center EXAM] Future Scheduled [address] [facility] 00:00:00 examination [facility] Center (regime/therapy) [code = 292791438] Future Scheduled 1975 Urine screening for [facility] 00:00:00 protein (procedure) Medical Center [code = 902458552] Future Scheduled [address] DIAB[address] EYE EXAM [facility] 00:00:00 [code = DIABETIC EYE Medical [facility] EXAM] Future Scheduled [address] [facility] 00:00:00 examination [facility] Center (regime/therapy) [code = 938443240] Future Scheduled 1975 Urine screening for [facility] 00:00:00 protein (procedure) Medical Center [code = 244437736] Future Scheduled [address] DIAB[address] EYE EXAM [facility] 00:00:00 [code = DIABETIC EYE [facility] EXAM] Future Scheduled [address] [facility] 00:00:00 examination [facility] Center (regime/therapy) [code = 802959474] Future Scheduled 1975 Urine screening for [facility] 00:00:00 protein (procedure) Medical Center [code = 129365313] Future Scheduled [address]AB[address] EYE EXAM [facility] 00:00:00 [code = DIABETIC EYE [facility] EXAM] Future Scheduled [address] [facility] 00:00:00 examination [facility] Center (regime/therapy) [code = 899857098] Future Scheduled 1975 Urine screening for [facility] 00:00:00 protein (procedure) Medical Center [code = 721284441] Future Scheduled [address]AB[address] EYE EXAM [facility] 00:00:00 [code = DIABETIC EYE Medical [facility] EXAM] Future Scheduled [address] [facility] 00:00:00 examination [facility] Center (regime/therapy) [code = 871747732] Future Scheduled 1975 Urine screening for [facility] 00:00:00 protein (procedure) Medical Center [code = 756476734] Future Scheduled [address]AB[address] EYE EXAM [facility] 00:00:00 [code = DIABETIC EYE Medical [facility] EXAM] Future Scheduled [address] [facility] 00:00:00 examination [facility] Center (regime/therapy) [code = 051414006] Future Scheduled 1975 Urine screening for [facility] 00:00:00 protein (procedure) Medical Center [code = 198376677] Future Scheduled [address] DIAB[address] EYE EXAM [facility] 00:00:00 [code = DIABETIC EYE Medical Center EXAM] Future Scheduled 1965 COVID-19 VACCINE (#1) [facility] [...] [facility] colon (procedure) [code = 584101671] Future Scheduled [address] [facility] 00:[facility]:00 [facility] colon (procedure) [code = 702804981] Future Scheduled [address] [facility] 00:00:00 [facility] colon (procedure) [code = 822072425] Future Scheduled [address] [facility] 00:00:00 [facility] colon (procedure) [code = 612451733] Future Scheduled 1965 S[facility]oidoscopy [facility] Future Scheduled [address] [facility] 00[facility]00:00 (combo) [code = CT Medical C enter Colonography (combo)] Future Scheduled [address] [facility] 00:00:00 [facility] colon (procedure) [code = 613070166] Future Scheduled [address] [facility] 00:00:00 [facility] colon (procedure) [code = 195910923] Future Scheduled [address] [facility] 00:00:00 [facility] colon (procedure) [code = 107483794] Future Scheduled [address] [facility] 00:00:00 [facility] colon (procedure) [code = 354151969] Future Scheduled 1965 [facility] [address] [facility] 00:00:00 (combo) [code = CT Medical C enter Colonography (combo)] Future Scheduled [address] [facility] 00:00:00 [facility] colon (procedure) [code = 990216038] Future Scheduled [address] [facility] 00:00:00 [facility] colon (procedure) [code = 740402176] Future Scheduled [address] [facility] 00:00:00 [facility] colon (procedure) [code = 929440067] Future Scheduled [address] [facility] 00:00:00 [facility] colon (procedure) [code = 760145951] Future Scheduled 1965 [facility] Future Scheduled [address] [facility] 00:00:00 (combo) [code = CT Medical C enter Colonography (combo)] Future Scheduled [address] [facility] 00:00:00 [facility] colon (procedure) [code = 423165513] Future Scheduled [address] [facility] 00:00:00 [facility] colon (procedure) [code = 104820545] Future Scheduled [address] [facility] 00:00:00 [facility] colon (procedure) [code = 702619494] Future Scheduled [address] [facility] 00:00:00 [facility] colon (procedure) [code = 686359275] Future Scheduled 1965 [facility] Future Scheduled [address] [facility] 00:00:00 (combo) [code = CT Medical C enter Colonography (combo)] Future Scheduled [address] [facility] 00:00:00 [facility] colon (procedure) [code = 364584924] Future Scheduled [address] [facility] 00:00:00 [facility] colon (procedure) [code = 883374341] Future Scheduled [address] [facility] 00:00:00 [facility] colon (procedure) [code = 849905186] Future Scheduled [address] [facility] 00:00:00 [facility] colon (procedure) [code = 263363358] Future Scheduled 1965 [facility]oscopy [facility] Future Scheduled [address] [facility] 00:00:00 (combo) [code = CT Medical C enter Colonography (combo)] Future Scheduled [address] [facility] 00:00:00 [facility] colon (procedure) [code = 718509248] Future Scheduled [address] [facility] 00:00:00 [facility] colon (procedure) [code = 786883457] Future Scheduled [address] [facility] 00:00:00 [facility] colon (procedure) [code = 540655372] Future Scheduled [address] [facility] 00:00:00 [facility]oplasm [facility] colon (procedure) [code = 458864476] Future Scheduled 1965 [facility]oscopy [facility] Future Scheduled [address] [facility] 00:00:00 (combo) [code = CT Medical C enter Colonography (combo)] Future Scheduled [address] [facility] 00:00:00 [facility] colon (procedure) [code = 671922702] Future Scheduled [address] [facility] 00:00:00 malignant [facility] [code = [id number]] Future Scheduled [address] [facility]00 [facility] (procedure) [code = 340827952] Future Scheduled [address] [facility]:00 [facility] (procedure) [code = 191248031] Future Scheduled 1965 Sigmoidoscopy [code = [facility] [code = 898591894] Future Scheduled [address] [facility]00 [facility] (procedure) [code = 885823788] Future Scheduled [address] [facility] 00:[facility]:00 [facility] (procedure) [code = 018704393] Future Scheduled [address] [facility] 00:[facility]:00 [facility] (procedure) [code = 931350192] Future Scheduled [address] [facility] 00:[facility]:00 [facility] (procedure) [code = 095588775] Future Scheduled 1965 [facility] Scheduled [address] [facility] 00:[facility]:00 [facility] (procedure) [code = 841775812] Future Scheduled [address] [facility] 00:[facility]:00 [facility] (procedure) [code = 787700168] Future Scheduled [address] [facility] 00:[facility]:00 (combo) [code = CT [facility] Colon[facility] (combo)] Future Scheduled [address] [facility] 00:[facility]:00 [facility] (procedure) [code = 917514281] Future Scheduled [address] [facility] 00:00:00 [facility] (procedure) [code = 166112391] Future Scheduled [address] [facility] 00:00:00 [facility] (procedure) [code = 757829480] Future Scheduled [address] [facility] 00:00:00 [facility] (procedure) [code = 092227758] Future Scheduled [address] [facility] 00:[facility]:00 [facility] (procedure) [code = 739317076] Future Scheduled 1965 Sigmoidoscopy [code = [facility] [code = 456523579] Future Scheduled [address] [facility] 00:[facility]:00 [facility] (procedure) [code = 905447546] Future Scheduled [address] [facility] 00:00:00 [facility] (procedure) [code = 698715546] Future Scheduled [address] [facility] 00:[facility]:00 [facility] (procedure) [code = 499637029] Future Scheduled 1965 [facility] [address] [facility] 00:00:00 (combo) [code = CT [facility] Colonography (combo)] Future Scheduled [address] [facility] 00:00:00 [facility] (procedure) [code = 279625791] Future Scheduled [address] [facility] 00:00:00 [facility] (procedure) [code = 017447929] Future Scheduled [address] [facility] 00:00:00 [facility] (procedure) [code = 306345119] Future Scheduled [address] [facility] 00:00:00 [facility] (procedure) [code = 291744587] Future Scheduled 1965 [facility] Scheduled [address] [facility] 00:00:00 (combo) [code = CT [facility] Colonography (combo)] Future Scheduled [address] [facility] 00:[facility]:00 [facility] (procedure) [code = 551975848] Future Scheduled [address] [facility] 00:00:00 [facility] (procedure) [code = 158447083] Future Scheduled [address] [facility] 00:00:00 [facility] (procedure) [code = 743004049] Future Scheduled [address] [facility] 00:00:00 [facility] (procedure) [code = 106189244] Future Scheduled 1965 [facility] Future Scheduled [address] [facility] 00:00:00 (combo) [code = CT [facility] Colon[facility] (combo)] Future Scheduled [address] [facility] 00:00:00 [facility] (procedure) [code = 418587201] Future Scheduled [address] [facility] 00:00:00 [facility] (procedure) [code = 830482787] Future Scheduled [address] [facility] 00:00:00 [facility] (procedure) [code = 488096047] Future Scheduled [address] [facility] 00:00:00 [facility] (procedure) [code = 711803332] Future Scheduled 1965 [facility] Future Scheduled [address] [facility] 00:00:00 (combo) [code = CT [facility] Colonography (combo)] Future Scheduled [address] [facility] 00:00:00 [facility] (procedure) [code = 663976197] Future Scheduled [address] [facility] 00:00:00 [facility] (procedure) [code = 283190665] Future Scheduled [address] [facility] 00:00:00 [facility] (procedure) [code = 279879663] Future Scheduled [address] [facility] 00:00:00 [facility] (procedure) [code = 247269379] Future Scheduled 1965 [facility] [address] [facility] 00:00:00 (combo) [code = CT [facility] Colon[facility] (combo)] Future Scheduled [address] [facility] 00:00:00 [facility] (procedure) [code = 130292203] Future Scheduled [address] [facility] 00:00:00 [facility] (procedure) [code = 622938497] Future Scheduled [address] [facility] 00:00:00 [facility] (procedure) [code = 259878614] Future Scheduled [address] [facility] 00:00:00 [facility] (procedure) [code = 744366879] Future Scheduled 1965 [facility] [address] [facility] 00:00:00 (combo) [code = CT [facility] Colon[facility] (combo)] Future Scheduled [address] [facility] 00:00:00 [facility] (procedure) [code = 758107138] Future Scheduled [address] [facility] 00:00:00 [facility] (procedure) [code = 295431118] Future Scheduled [address] [facility] 00:00:00 [facility] (procedure) [code = 951168804] Future Scheduled [address] [facility] 00:00:00 [facility] (procedure) [code = 739210185] Future Scheduled 1965 [facility]oscopy [facility]] [facility] Future Scheduled [address] [facility] 00:00:00 (combo) [code = CT [facility] Colon[facility] (combo)] Future Scheduled [address] [facility] 00:00:00 [facility] (procedure) [code = 405584199] Future Scheduled [address] [facility] 00:00:00 [facility] (procedure) [code = 410351261] Future Scheduled [address] [facility] 00:00:00 [facility] (procedure) [code = 392896362] Future Scheduled [address] [facility] 00:00:00 [facility] (procedure) [code = 717290857] Future Scheduled 1965 Sigmoidoscopy [code = [facility] [code = 290638422] Future Scheduled [address] [facility] 00:[facility]:00 [facility] (procedure) [code = 790689740] Future Scheduled [address] [facility] 00:00:00 [facility] (procedure) [code = 425448536] Future Scheduled [address] [facility] 00:00:00 [facility] (procedure) [code = 949745654] Future Scheduled 1965 [facility]] [facility] Scheduled [address] [facility] 00:00:00 [facility] (procedure) [code = 828858355] Future Scheduled [address] [facility] 00:00:00 [facility] (procedure) [code = 350919143] Future Scheduled [address] [facility] 00:00:00 [facility] (procedure) [code = 517543569] Future Scheduled [address] [facility] 00:00:00 (combo) [code = CT [facility] (combo)] Future Scheduled [address] [facility] 00:00:00 [facility] (procedure) [code = 427521015] Future Scheduled [address] [facility] 00:00:00 [facility] (procedure) [code = 826240926] Future Scheduled [address] [facility] 00:00:00 [facility] (procedure) [code = 066499803] Future Scheduled [address] [facility] 00:00:00 [facility] (procedure) [code = 049849529] Future Scheduled 1965 [facility]] [facility] Scheduled [address] [facility] 00:00:00 [facility] (procedure) [code = 326297745] Future Scheduled 1965 [facility]oscopy [facility]] [facility] Future Scheduled [address] [facility] 00:00:00 (combo) [code = CT [facility] Colon[facility] (combo)] Future Scheduled [address] [facility] 00:00:00 [facility] (procedure) [code = 975341430] Future Scheduled [address] [facility] 00:00:00 [facility] (procedure) [code = 202537068] Future Scheduled [address] [facility] 00:00:00 [facility] (procedure) [code = 241858010] Future Scheduled [address] [facility] 00:00:00 [facility] (procedure) [code = 015183000] Future Scheduled 1965 [facility] [address] [facility] 00:00:00 (combo) [code = CT [facility] Colonography (combo)] Future Scheduled [address] [facility] 00:00:00 [facility] (procedure) [code = 691977425] Future Scheduled [address] [facility] 00:00:00 [facility] (procedure) [code = 108777892] Future Scheduled [address] [facility] 00:00:00 [facility] (procedure) [code = 873866258] Future Scheduled [address] [facility] 00:00:00 [facility] (procedure) [code = 310872205] Future Scheduled 1965 [facility]] [facility] Future Scheduled [address] [facility] 00:00:00 (combo) [code = CT [facility] Colonography (combo)] Future Scheduled [address] [facility] 00:00:00 [facility] (procedure) [code = 183871012] Future Scheduled [address] [facility] 00:00:00 [facility] (procedure) [code = 121750518] Future Scheduled [address] [facility] 00:00:00 [facility] (procedure) [code = 845804072] Future Scheduled [address] [facility] 00:00:00 [facility] (procedure) [code = 931089166] Future Scheduled 1965 [facility]] [facility] Future Scheduled [address] [facility] 00:00:00 (combo) [code = CT [facility] Colonography (combo)] Future Scheduled [address] [facility] 00:00:00 [facility] (procedure) [code = 711387079] Future Scheduled [address] [facility] 00:00:00 [facility] (procedure) [code = 119860027] Future Scheduled [address] [facility] 00:00:00 [facility] (procedure) [code = 343668362] Future Scheduled [address] [facility] 00:00:00 [facility] (procedure) [code = 726596544] Future Scheduled 1965 [facility]oid[facility]] [facility] Goal Plan of Care Note [code = 74932-4] Goal Plan of Care Note [code = 72157-8] Goal Plan of Care Note [code = 34057-0] Goal Plan of Care Note [code = 97555-6] Goal Plan of Care Note [code = 26648-3] Goal Plan of Care Note [code = 51781-1] Goal Plan of Care Note [code = 69852-9] Goal Plan of Care Note [code = 34376-7] Goal Plan of Care Note [code = 56665-6] Goal Plan of Care Note [code = 04890-5] Goal Plan of Care Note [code = 42815-9] Goal Plan of Care Note [code = 62257-9] Goal Plan of Care Note [code = 15380-8] Goal Plan of Care Note [code = 79081-0] Goal Plan of Care Note [code = 02303-1] Goal Plan of Care Note [code = 85471-0] Goal Plan of Care Note [code = 40847-7] Goal Plan of Care Note [code = 75990-0] Goal Plan of Care Note [code = 55959-8] Goal Plan of Care Note [code = 87126-3] Goal Plan of Care Note [code = 10235-2] Goal Plan of Care Note [code = 34498-1] Goal Plan of Care Note [code = 78633-8] Goal Plan of Care Note [code = 38502-4] Goal Plan of Care Note [code = 81558-2] Goal Plan of Care Note [code = 14292-7] Goal Plan of Care Note [code = 57857-7] Goal Plan of Care Note [code = 95079-8] Goal Plan of Care Note [code = 42755-1] Goal Plan of Care Note [code = 57353-7] Goal Plan of Care Note [code = 13778-0] Goal Plan of Care Note [code = 89783-5] Goal Plan of Care Note [code = 23809-2] Goal Plan of Care Note [code = 95578-8] Goal Plan of Care Note [code = 88669-1] Goal Plan of Care Note [code = 02947-1] Goal Plan of Care Note [code = 48972-0] Goal Plan of Care Note [code = 03551-3] Goal Plan of Care Note [code = 57216-0] Goal Plan of Care Note [code = 36775-8] Goal Plan of Care Note [code = 29718-5] Goal Plan of Care Note [code = 76738-3] Goal Plan of Care Note [code = 63570-3] Goal Plan of Care Note [code = 86746-3] Goal Plan of Care Note [code = 66674-2] Goal Plan of Care Note [code = 47457-7] Goal Plan of Care Note [code = 08234-9] Goal Plan of Care Note [code = 22441-0] Goal Plan of Care Note [code = 54536-4] Goal Plan of Care Note [code = 50315-0] Goal Plan of Care Note [code = 95283-1] Goal Plan of Care Note [code = 02661-9] Goal Plan of Care Note [code = 17631-7] Goal Plan of Care Note [code = 76882-6] Goal Plan of Care Note [code = 24437-7] Goal Plan of Care Note [code = 16557-7] Goal Plan of Care Note [code = 87177-2] Goal Plan of Care Note [code = 08927-8] Goal Plan of Care Note [code = 11140-4] Goal Plan of Care Note [code = 45664-1] Goal Plan of Care Note [code = 60534-0] Goal Plan of Care Note [code = 65990-1] Goal Plan of Care Note [code = 90542-9] Goal Plan of Care Note [code = 44183-9] Goal Plan of Care Note [code = 19350-2] Goal Plan of Care Note [code = 83070-4] Goal Plan of Care Note [code = 57124-3] Goal Plan of Care Note [code = 22535-4] Goal Plan of Care Note [code = 25154-2] Goal Plan of Care Note [code = 11070-5] Goal Plan of Care Note [code = 52843-7] Goal Plan of Care Note [code = 25288-1] Goal Plan of Care Note [code = 12065-4] Goal Plan of Care Note [code = 06332-7] Goal Plan of Care Note [code = 30726-3] Goal Plan of Care Note [code = 08416-3] Goal Plan of Care Note [code = 85921-6] Goal Plan of Care Note [code = 30268-5] Goal Plan of Care Note [code = 18197-0] Goal Plan of Care Note [code = 15434-0] Goal Plan of Care Note [code = 27047-1] Goal Plan of Care Note [code = 37677-9] Goal Plan of Care Note [code = 59558-0] Goal Plan of Care Note [code = 49317-4] Goal Plan of Care Note [code = 40490-0] Goal Plan of Care Note [code = 29778-9] Goal Plan of Care Note [code = 94025-2] Goal Plan of Care Note [code = 22625-6] Goal Plan of Care Note [code = 33947-0] Goal Plan of Care Note [code = 31129-3] Goal Plan of Care Note [code = 45621-8] Goal Plan of Care Note [code = 05903-8] Goal Plan of Care Note [code = 47717-6] Goal Plan of Care Note [code = 01939-1] Goal Plan of Care Note [code = 16108-6] Goal Plan of Care Note [code = 38956-4] Goal Plan of Care Note [code = 78630-0] Goal Plan of Care Note [code = 45942-3] Goal Plan of Care Note [code = 91485-0] Goal Plan of Care Note [code = 98205-5] Goal Plan of Care Note [code = 02738-5] Goal Plan of Care Note [code = 73511-3] Goal Plan of Care Note [code = 79372-6] Goal Plan of Care Note [code = 71599-8] Goal Plan of Care Note [code = 91434-1] Goal Plan of Care Note [code = 69123-2] Goal Plan of Care Note [code = 75482-1] Goal Plan of Care Note [code = 70102-3] Goal Plan of Care Note [code = 84531-3] Goal Plan of Care Note [code = 75938-3] Goal Plan of Care Note [code = 43062-3] Goal Plan of Care Note [code = 54574-6] Goal Plan of Care Note [code = 53722-4] Goal Plan of Care Note [code = 18871-3] Goal Plan of Care Note [code = 52946-6] Goal Plan of Care Note [code = 61058-9] Goal Plan of Care Note [code = 82468-5] Goal Plan of Care Note [code = 86060-7] Goal Plan of Care Note [code = 60851-7] Goal Plan of Care Note [code = 46386-8] Goal Plan of Care Note [code = 96773-0] Goal Plan of Care Note [code = 37655-9] Goal Plan of Care Note [code = 55104-0] Goal Plan of Care Note [code = 19195-5] Goal Plan of Care Note [code = 00751-1] Goal Plan of Care Note [code = 31363-6] Goal Plan of Care Note [code = 48658-3] Goal Plan of Care Note [code = 78874-9] Goal Plan of Care Note [code = 67313-1] Goal Plan of Care Note [code = 79288-2] Goal Plan of Care Note [code = 93760-1] Goal Plan of Care Note [code = 67155-1] Goal Plan of Care Note [code = 07443-3] Goal Plan of Care Note [code = 43445-0] Goal Plan of Care Note [code = 28257-6] Goal Plan of Care Note [code = 45164-6] Goal Plan of Care Note [code = 81541-2] Goal Plan of Care Note [code = 15906-5] Goal Plan of Care Note [code = 50775-6] Goal Plan of Care Note [code = 70700-6] Goal Plan of Care Note [code = 74428-6] Goal Plan of Care Note [code = 94705-3] Goal Plan of Care Note [code = 47039-0] Goal Plan of Care Note [code = 08425-6] Goal Plan of Care Note [code = 23944-1] Goal Plan of Care Note [code = 68013-0] Goal Plan of Care Note [code = 15769-6] Goal Plan of Care Note [code = 19779-2] Goal Plan of Care Note [code = 07222-5] Goal Plan of Care Note [code = 91634-0] Goal Plan of Care Note [code = 65232-5] Goal Plan of Care Note [code = 51259-9] Goal Plan of Care Note [code = 69760-7] Goal Plan of Care Note [code = 14868-0] Goal Plan of Care Note [code = 96517-5] Goal Plan of Care Note [code = 74729-7] Goal Plan of Care Note [code = 45387-0] Goal Plan of Care Note [code = 16784-9] Goal Plan of Care Note [code = 83275-6] Goal Plan of Care Note [code = 27995-3] Goal Plan of Care Note [code = 51586-9] Goal Plan of Care Note [code = 45362-0] Goal Plan of Care Note [code = 51301-6] Goal Plan of Care Note [code = 41631-1] Goal Plan of Care Note [code = 43334-2] Goal Plan of Care Note [code = 97651-6] Goal Plan of Care Note [code = 64008-5] Goal Plan of Care Note [code = 39678-0] Goal Plan of Care Note [code = 77448-4] Goal Plan of Care Note [code = 01287-3] Goal Plan of Care Note [code = 53864-4] Goal Plan of Care Note [code = 94253-2] Goal Plan of Care Note [code = 11823-0] Goal Plan of Care Note [code = 08157-2] Goal Plan of Care Note [code = 92770-2] Goal Plan of Care Note [code = 81932-2] Goal Plan of Care Note [code = 71146-7] Goal Plan of Care Note [code = 88432-9] Goal Plan of Care Note [code = 44556-2] Goal Plan of Care Note [code = 63114-6] Goal Plan of Care Note [code = 83424-3] Goal Plan of Care Note [code = 83854-6] Goal Plan of Care Note [code = 47032-6] Goal Plan of Care Note [code = 97400-9] Goal Plan of Care Note [code = 33007-1] Goal Plan of Care Note [code = 68148-8] Goal Plan of Care Note [code = 95780-8] Goal Plan of Care Note [code = 94324-8] Goal Plan of Care Note [code = 61595-6] Goal Plan of Care Note [code = 74849-0] Goal Plan of Care Note [code = 85735-4] Goal Plan of Care Note [code = 79687-2] Goal Plan of Care Note [code = 24390-6] Goal Plan of Care Note [code = 85081-1] Goal Plan of Care Note [code = 55866-5] Goal Plan of Care Note [code = 71679-9] Goal Plan of Care Note [code = 13202-7] Goal Plan of Care Note [code = 86624-9] Goal Plan of Care Note [code = 11584-7] Goal Plan of Care Note [code = 95249-1] Goal Plan of Care Note [code = 66967-2] Goal Plan of Care Note [code = 98197-8] Goal Plan of Care Note [code = 00229-1] Goal Plan of Care Note [code = 42990-3] Goal Plan of Care Note [code = 81506-4] Goal Plan of Care Note [code = 06565-6] Goal Plan of Care Note [code = 54004-6] Goal Plan of Care Note [code = 07556-6] Goal Plan of Care Note [code = 64068-4] Goal Plan of Care Note [code = 40769-3] Goal Plan of Care Note [code = 46025-7] Goal Plan of Care Note [code = 69699-6] Goal Plan of Care Note [code = 34112-0] Goal Plan of Care Note [code = 67361-7] Goal Plan of Care Note [code = 28670-1] Goal Plan of Care Note [code = 07243-7] Goal Plan of Care Note [code = 40513-5] Goal Plan of Care Note [code = 66397-1] Goal Plan of Care Note [code = 27574-6] Goal Plan of Care Note [code = 26339-2] Goal Plan of Care Note [code = 36429-5] Goal Plan of Care Note [code = 18939-6] Goal Plan of Care Note [code = 60760-0] Goal Plan of Care Note [code = 36968-8] Goal Plan of Care Note [code = 27419-9] Goal Plan of Care Note [code = 54334-7] Goal Plan of Care Note [code = 29801-6] Goal Plan of Care Note [code = 61750-3] Goal Plan of Care Note [code = 10902-5] Goal Plan of Care Note [code = 34921-1] Goal Plan of Care Note [code = 64715-9] Goal Plan of Care Note [code = 26146-4] Goal Plan of Care Note [code = 26315-8] Goal Plan of Care Note [code = 05043-0] Goal Plan of Care Note [code = 15956-3] Goal Plan of Care Note [code = 34169-9] Goal Plan of Care Note [code = 49494-5] Goal Plan of Care Note [code = 09336-4] Goal Plan of Care Note [code = 43987-3] Goal Plan of Care Note [code = 88560-1] Goal Plan of Care Note [code = 03085-1] Goal Plan of Care Note [code = 45443-1] Goal Plan of Care Note [code = 46387-1] Goal Plan of Care Note [code = 74011-4] Goal Plan of Care Note [code = 21886-5] Goal Plan of Care Note [code = 54998-2] Goal Plan of Care Note [code = 11026-1] Goal Plan of Care Note [code = 49429-3] Goal Plan of Care Note [code = 52279-5] Goal Plan of Care Note [code = 77726-7] Goal Plan of Care Note [code = 44154-4] Goal Plan of Care Note [code = 50903-4] Goal Plan of Care Note [code = 40770-7] Goal Plan of Care Note [code = 68452-9] Goal Plan of Care Note [code = 60733-2] Goal Plan of Care Note [code = 03902-8] Goal Plan of Care Note [code = 34923-1] Goal Plan of Care Note [code = 02073-5] Goal Plan of Care Note [code = 28065-4] Goal Plan of Care Note [code = 96041-1] Goal Plan of Care Note [code = 75601-6] Goal Plan of Care Note [code = 28473-0] Goal Plan of Care Note [code = 41147-9] Goal Plan of Care Note [code = 60168-7] Goal Plan of Care Note [code = 21222-0] Goal Plan of Care Note [code = 77813-7] Goal Plan of Care Note [code = 13238-2] Goal Plan of Care Note [code = 44552-8] Goal Plan of Care Note [code = 77189-0] Goal Plan of Care Note [code = 28586-2] Goal Plan of Care Note [code = 14377-1] Goal Plan of Care Note [code = 06371-8] Goal Plan of Care Note [code = 70033-1] Goal Plan of Care Note [code = 24277-2] Goal Plan of Care Note [code = 24145-3] Goal Plan of Care Note [code = 32838-3] Goal Plan of Care Note [code = 14899-4] Goal Plan of Care Note [code = 83001-2] Goal Plan of Care Note [code = 49971-1] Goal Plan of Care Note [code = 88168-9] Goal Plan of Care Note [code = 06275-4] Goal Plan of Care Note [code = 58376-8] Goal Plan of Care Note [code = 02253-6] Goal Plan of Care Note [code = 45351-2] Goal Plan of Care Note [code = 40793-1] Goal Plan of Care Note [code = 89167-5] Goal Plan of Care Note [code = 65357-8] Goal Plan of Care Note [code = 12360-9] Goal Plan of Care Note [code = 15365-3] Goal Plan of Care Note [code = 59471-2] Goal Plan of Care Note [code = 76850-7] Goal Plan of Care Note [code = 50813-6] Goal Plan of Care Note [code = 04341-0] Goal Plan of Care Note [code = 61545-2] Goal Plan of Care Note [code = 04196-0] Goal Plan of Care Note [code = 64130-7] Goal Plan of Care Note [code = 35402-1] Goal Plan of Care Note [code = 84318-5] Goal Plan of Care Note [code = 92932-7] Goal Plan of Care Note [code = 59449-0] Goal Plan of Care Note [code = 02466-5] Goal Plan of Care Note [code = 74180-4] Goal Plan of Care Note [code = 15192-3] Goal Plan of Care Note [code = 30663-7] Goal Plan of Care Note [code = 41118-3] Goal Plan of Care Note [code = 81462-8] Goal Plan of Care Note [code = 67770-5] Goal Plan of Care Note [code = 64210-7] Goal Plan of Care Note [code = 13268-8] Goal Plan of Care Note [code = 40108-0] Goal Plan of Care Note [code = 85825-3] Goal Plan of Care Note [code = 50988-5] Goal Plan of Care Note [code = 77213-6] Goal Plan of Care Note [code = 03822-6] Goal Plan of Care Note [code = 21467-3] Goal Plan of Care Note [code = 61647-9] Goal Plan of Care Note [code = 93622-4] Goal Plan of Care Note [code = 07145-1] Goal Plan of Care Note [code = 01889-8] Goal Plan of Care Note [code = 64814-5] Goal Plan of Care Note [code = 76792-0] Goal Plan of Care Note [code = 76845-0] Goal Plan of Care Note [code = 57927-6] Goal Plan of Care Note [code = 12083-2] Goal Plan of Care Note [code = 05938-4] Goal Plan of Care Note [code = 84057-3] Goal Plan of Care Note [code = 59262-8] Goal Plan of Care Note [code = 67496-4] Goal Plan of Care Note [code = 42683-9] Goal Plan of Care Note [code = 47388-1] Goal Plan of Care Note [code = 74335-4] Goal Plan of Care Note [code = 91266-7] Goal Plan of Care Note [code = 70087-3] Goal Plan of Care Note [code = 90856-6] Goal Plan of Care Note [code = 51669-8] Goal Plan of Care Note [code = 29040-2] Goal Plan of Care Note [code = 82174-6] Goal Plan of Care Note [code = 71964-6] Goal Plan of Care Note [code = 05841-3] Goal Plan of Care Note [code = 34940-7] Goal Plan of Care Note [code = 17813-4] Goal Plan of Care Note [code = 80406-4] Goal Plan of Care Note [code = 22493-4] Goal Plan of Care Note [code = 86080-3] Goal Plan of Care Note [code = 00988-3] Goal Plan of Care Note [code = 72318-9] Goal Plan of Care Note [code = 60373-6] Goal Plan of Care Note [code = 03781-8] Goal Plan of Care Note [code = 75682-5] Goal Plan of Care Note [code = 61797-3] Goal Plan of Care Note [code = 28265-3] Goal Plan of Care Note [code = 65334-2] Goal Plan of Care Note [code = 26352-1] Goal Plan of Care Note [code = 51569-1] Goal Plan of Care Note [code = 17101-7] Goal Plan of Care Note [code = 27011-4] Goal Plan of Care Note [code = 68946-7] Goal Plan of Care Note [code = 46751-5] Goal Plan of Care Note [code = 02483-2] Goal Plan of Care Note [code = 13911-6] Goal Plan of Care Note [code = 67949-9] Goal Plan of Care Note [code = 92157-9] Goal Plan of Care Note [code = 89884-9] Goal Plan of Care Note [code = 71717-0] Goal Plan of Care Note [code = 63931-1] Goal Plan of Care Note [code = 15336-1] Goal Plan of Care Note [code = 97423-4] Goal Plan of Care Note [code = 82111-0] Goal Plan of Care Note [code = 68905-4] Goal Plan of Care Note [code = 03966-0] Goal Plan of Care Note [code = 54779-3] Goal Plan of Care Note [code = 61185-6] Goal Plan of Care Note [code = 44721-5] Goal Plan of Care Note [code = 66496-6] Goal Plan of Care Note [code = 74143-2] Goal Plan of Care Note [code = 71974-1] Goal Plan of Care Note [code = 90907-5] Goal Plan of Care Note [code = 01380-7] Goal Plan of Care Note [code = 45863-5] Goal Plan of Care Note [code = 19143-0] Goal Plan of Care Note [code = 00558-4] Goal Plan of Care Note [code = 12660-6] Goal Plan of Care Note [code = 95184-6] Goal Plan of Care Note [code = 64998-6] Goal Plan of Care Note [code = 83204-0] Goal Plan of Care Note [code = 94933-0] Goal Plan of Care Note [code = 30437-2] Encounters Start End Encounter Admission Attending Care Care Encounter Source Date/Time Date/Time Type Type Clinicians Facility Department ID 2022-04-01 Outpatient 3 [id number] [facility] REF [id number] [facility] 15:21:07 [facility] [place] 2022-03-31 Outpatient 3 [id number] E[facility] REF [id number] [facility] 14:48:02 [facility] [place] 2022-03-25 Outpatient 3 [id number] ENC[facility] REF [id number] [facility] 10:48:24 [facility] [place] 2021-02-05 Outpatient BHARAT, [facility] [id number] [facility] 05:27:44 IRMA 2021-02-04 Outpatient ELISE, [facility] Surgery [id number] [facility] 23:01:57 MAHBOOB 2022-09-22 2022-09-22 Outpatient SFA SFA [id number] 023 [place] 13:46:32 13:46:32 0523 [facility] 2022-09-10 2022-09-10 Outpatient SFA SFA 11638-2 023 [place] 08:13:34 08:13:34 0511 [facility] 2022-09-08 2022-09-08 Outpatient SFA SFA 33550-9 023 [place] 17:33:06 17:33:06 0509 [facility] 2022-08-19 2022-08-19 Outpatient SFA SFA 66481-1 023 [place] 10:53:44 10:53:44 0419 [facility] 2022-08-18 2022-08-18 Outpatient Rayne DENNISON [facility] [id number] Univers 00:00:00 00:00:00 HO [facility] 2022-04-21 2022-07-23 Outpatient RECERTIFIC MICHAEL ENCCLR ENCCLR [id number] ENCCLR 00:00:00 00:00:00 JACINTO WEBBER 2022-07-20 2022-07-20 Outpatient SFA SFA [id number] 023 [place] 11:34:05 11:34:05 0320 [facility] 2022-06-29 2022-06-29 Outpatient SFA SFA 25602-5 023 [place] 11:09:32 11:09:32 0227 [facility] 2022-06-09 2022-06-09 Outpatient Rayne FERNANDEZ [facility] [id number] Univers 13:30:00 13:30:00 JOSELUIS [facility] 2022-05-28 2022-05-28 Outpatient SFA SFA [id number] 023 [place] 09:36:19 09:36:19 0126 [facility] 2022-05-28 2022-05-28 Jasmyn DECKER 1.2.840.114 [id number] Univers 00:00:00 00:00:00 Only Unassigned, RONNY 350.1.13.10 ity of [place] [facility] 4.2.7.2.686 Tony as [phone] [address] 2022-04-23 2022-04-[address] [facility] 22635-2 022 [place] 11:12:51 11:12:51 1222 F Martínez 2022-04-23 2022-04-23 Outpatient [id number] 524cy6-1 00:00:00 00:00:00 Visit 0p11-499z d36-060e-7 -8818-496 [id number] 8450844b2 6681f3 2022-04-22 2022-04-22 Outpatient [facility] 89952-3 022 [place] 11:56:37 11:56:37 1221 F [place] 2022-04-21 2022-04-21 Outpatient KEKE AUGUSTINE ENCCLR ENCCLR [id number] ENCCLR 00:00:00 00:00:00 ADMISSION Y, GERRI 2022-04-20 2022-04-20 Outpatient [facility] 32541-2 022 [place] 13:44:26 13:44:26 1219 F Martí[place] 2022-04-20 2022-04-20 Outpatient [id number]- [id number] fa 30098n-3 00:00:00 00:00:00 Visit 868d-4ba4 68d-4ba4-8 -857d-890 57d-8900b2 6u601630q 56928x 2022-04-07 2022-04-17 Inpatient 3 [facility] ENCPL OT 5814 [facility] 18:25:00 16:40:00 hez, 1206 ss [facility] Tianna ndiaye 2022-04-15 2022-04-15 Outpatient Provider, SANDIE WILSON [id number] AMINA 03:25:00 03:25:00 Undefined 02 Antwon vaughan [facility] 2022-03-17 2022-03-17 Outpatient SFA 39883-2 022 [place] 09:09:19 09:09:19 1115 F [place] 2022-03-17 2022-03-17 Outpatient [id number]- [id number] rc377z-j 00:00:00 00:00:00 Visit p559-8316 106-4636-b -e4pp-981 5be-547ae2 zn188fxz6 86dad8 2022-03-04 2022-03-04 Outpatient SFA SFA 75391-5 022 [place] 13:56:07 13:56:07 1102 F [place] 2022-03-04 2022-03-04 Outpatient [id number]- [id number] c2 7246be-9 00:00:00 00:00:00 Visit 9529-42f7 529-42f7-a -ml58-zv6 z70-pq916f 18d2qy7z4 5cb7c5 2022-02-24 2022-02-[address] [facility] [id number] 00:00:00 00:00:00 [facility] 2022-02-24 2022-02-[address] [facility] [id number] 00:00:00 00:00:00 [facility] 2022-02-17 2022-02-[address] [facility] 31273-3 022 [place] 14:09:24 14:09:24 1018 F [place] 2022-02-17 2022-02-17 Outpatient [id number]- [id number] vn892f-l 00:00:00 00:00:00 Visit a79f-31p8 39e-47c5-b -d7n0-4dv 6n6-1mba7a o4n384758 287834 3806-10-04 2022-02-03 Outpatient SFA SFA 60936-8 022 [place] 13:41:10 13:41:10 1004 F [place] 2022-02-03 2022-02-03 Outpatient [id number] 725663-6 00:00:00 00:00:00 Visit 4378-45d4 378-45d4-b -xp0x-253 z0l-2060p0 8q67069ct 0427fc 2021-12-23 2021-12-23 Telephone [facility] 1.2.209.659 [id number] Univers 00:00:00 00:00:00 [place] 33762.1.13.10 it y of [place] 4.2.7.2.686 Tony as CAR?BLEA [id number] [facility] [address] [facility] OFFICE [facility] 2021-12-04 2021-12-04 Outpatient [id number]- [id number] 866q10-3 00:00:00 00:00:00 Visit 69e4-8q41 3w7-8f93-9 -82f1-s1j 8v3-f0hfc6 kr6285x67 255c45 2021-12-02 2021-12-02 [facility] [id number] Univers 16:00:00 16:00:00 [facility] 2021-12-02 2021-12-02 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, 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 [address] OFFICE [facility] 2021-12-02 2021-12-02 Outpatient [id number] 7y6435-8 00:00:00 00:00:00 Visit 7fn1-5461 db2-4873-a -p5w9-783 5w1-7574v5 4i96i39t0 1f79f2 2021-11-26 2021-11-26 [facility] [id number] Univers 14:00:00 14:00:00 [facility] 2021-10-21 2021-10-21 Outpatient R FERNANDEZ, [facility] [id number] Univers 14:30:00 14:30:00 [facility] 2021-07-29 2021-07-29 Telephone [facility] 1.2.172.746 [id number] Univers 00:00:00 00:00:00 [facility] 350.1.13.10 it y of [place] 4.2.7.2.686 Tony as CAR?BLEA [id number] [address] MEDICAL OFFICE [facility] 2021-07-15 2021-07-15 Outpatient [facility] [id number] Univers 09:30:00 10:12:40 [facility] 2021-07-15 2021-07-15 Office [facility] 1.2.840.114 [id number] Univers 09:30:00 10:12:40 Visit [facility] 350.1.13.10 it y of [place] 4.2.7.2.686 Tony as CAR?BLEA [phone] [address] MEDICAL OFFICE BUILDING 2021-03-06 2021-03-06 Hospital Radiology [facility] 1.2.840.114 [id number] Univers 12:24:35 23:59:00 Encounter [place] 350.1.13.10 it[place] [id number] [address] 2021-03-06 2021-03-06 Hospital Radiology [facility] 1.2.840.114 [id number] Univers 12:23:40 12:23:40 Encounter [place] 350.1.13.10 [place].2.[place] [id number] [address] 2021-03-06 2021-03-06 Outpatient R RADIOLOGY [facility] [id number] Univers 12:23:40 12:23:40 ity of [facility] 2021-03-06 2021-03-06 Outpatient R RADIOLOGY [facility] [id number] Univers 12:23:40 12:23:40 ity of [facility] 2021-02-27 2021-02-27 Outpatient R RADIOLOGY [facility] [id number] Univers 00:00:00 [facility] 2021-02-27 2021-02-27 Outpatient R RADIOLOGY [facility] [id number] Univers 00:00:00 00:00:00 [facility] 2021-02-13 2021-02-[address] [facility] [id number] [facility] 00:00:00 00:00:00 ion [facility] 2021-02-03 2021-02-03 Orders Doctor BRIANNE 1.2.840.114 [id number] Univers 00:00:00 00:00:00 Only Unassigned, RONNY 350.1.13.10 ity [place] [facility] 4.2.7.2.686 Tony as [id number] [address] 2020-11-22 2020-11-22 Outpatient [facility] [id number] Univers 13:00:00 13:00:00 SAM [facility] 2020-10-08 2020-10-08 Telephone [facility] 1.2.840.114 [id number] 00:00:00 00:00:00 Sam Doherty 350.1.13.10 [place] 4.2.7.2.686 Professio [id number] [address] 2020-10-07 2020-10-07 Orders Doctor BRIANNE 1.2.840.114 [id number] 00:00:00 00:00:00 Only UnassignedRONNY 350.1.13.10 [facility] 4.2.7.2.686 [id number] 009 2020-10-04 2020-10-04 Outpatient R BENEDICT [facility] [id number] Univers 14:00:00 14:00:00 SAM [facility] 2020-09-19 2020-09-19 Outpatient Rayne GARCIA [facility] [id number] Univers 11:00:00 11:00:00 DEAN stewart o f [facility] 2020-09-10 2020-09-10 Outpatient R BANDAR, [facility] [id number] Univers 10:00:00 10:00:00 DEAN sheffield [facility] 2020-08-20 2020-08-20 Office [facility] 1.2.840.114 [id number] 13:15:09 13:42:21 Visit Dean Doherty 350.1.13.10 [place] 4.2.7.2.686 Tania [id number] [facility] 2020-08-20 2020-08-20 Out[facility] [id number] Univers 13:20:00 13:20:00 EDAN sheffield [facility] 2019-12-14 2019-12-14 Outpatient [facility] [id number] [facility] 00:00:00 00:00:00 2019-11-14 2019-11-14 Outpatient EL GIPSON, [facility] [id number] [facility] 00:00:00 00:00:00 HUNTER 2019-11-14 2019-11-14 Outpatient SLEH [facility] [id number] [facility] 00:00:00 00:00:00 2019-11-14 2019-11-14 Outpatient EL [facility]H [id number] [facility] 00:00:00 00:00:00 2019-10-31 2019-10-31 Outpatient SLEH [facility] [id number] [facility] 00:00:00 00:00:00 2019-10-31 2019-10-31 Outpatient SLEH [facility] [id number] [facility] 00:00:00 00:00:00 2019-10-17 2019-10-17 Outpatient SLEH [facility] [id number] [facility] 00:00:00 00:00:00 2019-10-17 2019-10-17 Outpatient EL [facility] [id number] [facility] 00:00:00 00:00:00 2019-07-13 2019-07-13 Outpatient [facility]H [facility] [id number] 2-2 [facility]H 00:00:00 00:00:00 [id number] 2019-06-15 2019-06-15 Outpatient SLEH [facility] [id number] 2-2 [facility] 00:00:00 00:00:00 [id number] Results Test Description Test Time Test Comments Results Result Comments Source HEMOGLOBIN A1c 2022-09-11 05:14:56 Test Item Value Reference Range Interpretation Comme nts HEMOGLOBIN A1c (test code = 5.9 % 4.2-5.6 H CITIZEN OF [place] [address]) GUIDELINES FOR HGB A1C: PREDIABETES/INC REASED RISK [...] OTHERWISE INDIC ATED, ALL TESTING PERFORMED AT [facility], [id number] [place] [address] [employer]ICA DIRECTOR: Chuckie NAVA MYKE NUMBER [id number] CAP ACCREDITATION N O. [id number] COMPREHENSIVE METABOLIC [id number] 05:50:10 Test Item Value Reference Range Interpretation Comments GLUCOSE (test code = 199 MG/DL 70-99 H 2216) BUN (test code = 53 MG/DL 6-20 H 2207) CREATININE (test 9.05 MG/DL 0.80-1.40 H code = 2214) eGFR (2020 CKD-EPI) 6 ML/MIN/1.73 >60 L (test code = 85895) CALC BUN/CREAT (test 6 RATIO 6-28 code = 2235) SODIUM (test code = 135 MEQ/L 333-854 6541) POTASSIUM (test code 4.3 MEQ/L 3.5-5.4 = [...] and clinic al consultation. S ee URL: [email or web address]. UNLE SS OTHERWISE INDIC ATED, ALL TESTING PER FORMED AT [facility] [employer] [facility], [address] [address] [employer] DIRECTOR: ELIZABETH MILLER M.D. C MYKE NUMBER [id number] CAP ACCREDITATION N O. [id number] TSH, THIRD [id number] 06:11:47 Test Item Value Reference Range Interpretation Comments TSH, THIRD >100.000 0.400-4.100 H CPL has GENERATION (test UIU/ML important p athology code = 2821) staff changes effective 07/01. New patholo gy staff will prov lisa uninterrupted, excellent patie nt care and clinic al consultation. S ee URL: [email or web address]. UNLE SS OTHERWISE INDIC ATED, ALL TESTING PER FORMED AT [facility] [employer] [facility], [address] [address] [facility] DIRECTOR: LATOYA MCCALL M.D. CLIA NUMBER [id number] CAP ACCREDITATION N O. [id number] LIPID [id number] 03:11:34 Test Item Value Reference Range Interpretation [...] MOREINFORMATION , SEE CLIENT ANNOUNCE MENT AT [email or web address] RISK RATIO LDL/HDL 1.58 RATIO <3.55 (test code = 2238) TSH, THIRD [id number] 06:32:46 Test Item Value Reference Range Interpretation Comments TSH, THIRD GENERATION (test >100.000 UIU/ML 0.400-4.100 H code = 2821) PSA, [id number] 06:32:46 Test Item Value Reference Range Interpretation Comments PSA, TOTAL 0.57 NG/ML See_Comment NOTE: Methodol ogy is Ezio (test code = Radhika Electroch emiluminescence 2606) Immunoassay tra ceable to WHO reference stand rea 96/760. UNLESS OTHERWIS E INDICATED, ALL TESTING PERFORM ED ATCLINICAL PATHOLOGY [facility], [facility]. [address] [place] [address] LABORATORY DIRE CTOR: LATOYA MCCALL M.D. CLIA NUMBER [id number] [place]. [id number] [A utomated message] The sy stem which generated this result transmitted ref erence range: <=4.00. The ref erence range was not used to int erpret this result as ryne l/abnormal. COMPREHENSIVE METABOLIC [id number] 04:57:27 Test Item Value Reference Range Interpretation Comments GLUCOSE (test code = 204 MG/DL 70-99 H 2216) BUN (test code = 17 MG/DL 6-20 2207) CREATININE (test 5.58 MG/DL 0.80-1.40 H code = 2214) eGFR (2020 CKD-EPI) 11 ML/MIN/1.73 >60 L (test code = 81966) CALC BUN/CREAT (test 3 RATIO 6-28 L code = 223) SODIUM (test code = 143 MEQ/L 479-069 2493) POTASSIUM (test code 3.8 MEQ/L 3.5-5.4 = 8) CHLORIDE (test code 98 MEQ/L 95-107 = 2215) CARBON DIOXIDE (test 29 MEQ/L 19-31 code = 2206) CALCIUM (test code = 8.7 MG/DL 8.5-10.5 2208) PROTEIN, TOTAL (test 7.0 G/DL 6.1-8.3 code = 222) ALBUMIN (test code = 4.4 G/DL 3.5-5.2 2200) CALC GLOBULIN (test 2.6 G/DL 1.9-3.7 code = 2240) CALC A/G RATIO (test 1.7 RATIO 1.0-2.6 code = 2234) BILIRUBIN, TOTAL <0.2 MG/DL See_Comment [Automated message] (test code = 2206) The [employer] which generated this result transmit kailey reference range : <=1.2. The refe rence range was not u sed to interpret th is result as normal/abnormal . ALKALINE PHOSPHATASE 72 U/L 40-123 (test code = 2203) AST (test code = 18 U/L 9-50 2217) ALT (test code = 15 U/L 5-50 2218) HEMOGLOBIN [id number] 03:24:27 Test Item Value Reference Range Interpretation Comments HEMOGLOBIN A1c (test code = 93852) 5.8 % 4.2-5.6 H CBC W/AUTO DIFF WITH [id number] 03:19:43 Test Item Value Reference Range Interpretation [...] RBCS 0.00 K/UL 0.00-0.11 (test code = 16384) CBC W/AUTO [id number] 00:00:00 Test Item Value Reference Range Interpretation [...] NUCLEATED RBCS (test code = 0.00 K/UL 44181) CBC W/AUTO [id number] 00:00:00 Test Item Value Reference Range Interpretation [...] NUCLEATED RBCS (test code = 0.00 K/UL 73837) CBC W/AUTO [id number] 00:00:00 Test Item Value Reference Range Interpretation [...] NUCLEATED RBCS (test code = 0.00 K/UL 61372) HEMOGLOBIN [id number] 00:00:00 Test Item Value Reference Range Interpretation Comments HEMOGLOBIN A1c (test code = 69944) 5.8 % HEMOGLOBIN [id number] 00:00:00 Test Item Value Reference Range Interpretation Comments HEMOGLOBIN A1c (test code = 06332) 5.8 % HEMOGLOBIN [id number] 00:00:00 Test Item Value Reference Range Interpretation Comments HEMOGLOBIN A1c (test code = 23757) 5.8 % COMPREHENSIVE METABOLIC [id number] 00:00:00 Test Item Value Reference Range Interpretation Comments GLUCOSE (test code = 2217) 204 MG/DL BUN (test code = 2208) 17 MG/DL CREATININE (test code = 2214) 5.58 MG/DL eGFR (2020 CKD-EPI) (test code 11 ML/MIN/1.73 = 73527) CALC BUN/CREAT (test code = 3 RATIO 2235) SODIUM (test code = 2231) 143 MEQ/L POTASSIUM (test code = 2228) 3.8 MEQ/L CHLORIDE (test code = 2215) 98 MEQ/L CARBON DIOXIDE (test code = 29 MEQ/L 2206) CALCIUM (test code = 2209) 8.7 MG/DL PROTEIN, TOTAL (test code = 7.0 G/DL 222) ALBUMIN (test code = 2201) 4.4 G/DL CALC GLOBULIN (test code = 2.6 G/DL 2240) CALC A/G RATIO (test code = 1.7 RATIO 2234) BILIRUBIN, TOTAL (test code = <0.2 MG/DL 2206) ALKALINE PHOSPHATASE (test 72 U/L code = 2204) AST (test code = 2218) 18 U/L ALT (test code = 2219) 15 U/L COMPREHENSIVE METABOLIC [id number] 00:00:00 Test Item Value Reference Range Interpretation Comments GLUCOSE (test code = 2217) 204 MG/DL BUN (test code = 2208) 17 MG/DL CREATININE (test code = 2214) 5.58 MG/DL eGFR (2020 CKD-EPI) (test code 11 ML/MIN/1.73 = 18801) CALC BUN/CREAT (test code = 3 RATIO 2235) SODIUM (test code = 2231) 143 MEQ/L POTASSIUM (test code = 2228) 3.8 MEQ/L CHLORIDE (test code = 2215) 98 MEQ/L CARBON DIOXIDE (test code = 29 MEQ/L 2206) CALCIUM (test code = 2209) 8.7 MG/DL [...] code = 2219) 15 U/L TSH, THIRD [id number] 00:00:00 Test Item Value Reference Range Interpretation Comments TSH, THIRD GENERATION (test >100.000 UIU/ML code = 2821) TSH, THIRD [id number] 00:00:00 Test Item Value Reference Range Interpretation Comments TSH, THIRD GENERATION (test >100.000 UIU/ML code = 2821) TSH, THIRD [id number] 00:00:00 Test Item Value Reference Range Interpretation Comments TSH, THIRD GENERATION (test >100.000 UIU/ML code = 2821) PSA, [id number] 00:00:00 Test Item Value Reference Range Interpretation Comments PSA, TOTAL (test code = 2606) 0.57 NG/ML PSA, [id number] 00:00:00 Test Item Value Reference Range Interpretation Comments PSA, TOTAL (test code = 2606) 0.57 NG/ML PSA, [id number] 00:00:00 Test Item Value Reference Range Interpretation Comments PSA, TOTAL (test code = 2606) 0.57 NG/ML - CT ABD PELVIS W/O [id number] 17:19:00 [facility] 1965 Sex: M Name: VIKA KIMMEHRDAD [facility] : 1965 Age/S: 56 / M [address] Unit #:[id number] Loc: [place] [address] Phys: Jacinto Simpson MD Acct: [id number] Dis Date: Status: REG REF PHONE #: [phone] Exam Date: 04/16/2022 1703 FAX #: Reason: RESP FAILURE EXAMS: CPT: [id number] CT ABD PELVIS W/O CONT 32433 CT abdomen and pelvis without contrast: HISTORY: [...] 1 Signed Report (CONTINUED) Name: MEHRDAD RAMIREZ [facility] : 1965 Age/S: 56 / M [address] [facility] [facility] Unit #: [id number] Loc: [place] [address] Phys: Jacinto Simpson MD Acct: [id number] Dis Date: Status: REG REFPHONE #: [phone] Exam Date: 04/16/2022 1708 FAX #: Reason: RESP FAILURE EXAMS: CPT: [id number] CT ABD PELVIS W/O CONT 27009 (Continued) evidence of ascites. Abdominal wall is intact. No significant bony lesions. IMPRESSION: 1. No acute finding is seen in the abdomen the pelvis. 2. Left colonic diverticulosis. 3. Normal appendix seen. 4. Multiple small right renal cysts are present. These require no additional follow-up. at 1719 Reported and signed by: José Luis Escobar M.D. CC: Jacinto Pearson MD Technologist:Moreno Alvarez, RT(R) CTDI: DLP: Trnscb Date/Time: 04/16/2022 (1719) [email or web address] Orig Print D/T: S: 04/16/2022(9639) PAGE 2 Signed ReportCBC W/AUTO [id number] 05:14:00 Test Item Value Reference Range Interpretation [...] NT WITH AUTO DIFFERENTI AL. BASIC METABOLIC [id number] 03:59:00 Test Item Value Reference Range Interpretation [...] maria del carmen for GFRby the [facility] for Ad[facility].The GFR will not calculate i f the sex is unknown or if thepatient's ag e is <18 years. CREATININE (test 12.3 MG/DL 0.8-1.3 H code = CREAT) CALCIUM (test code 7.6 MG/DL 8.5-10.1 L = CA) CBC W/AUTO DIFF WITH [id number] 09:42:23 Test Item Value Reference Range Interpretation [...] RBCS 0.00 K/UL 0.00-0.11 (test code = 31435) HEMOGLOBIN [id number] 09:27:39 Test Item Value Reference Range Interpretation Comments HEMOGLOBIN A1c (test code = 02605) 6.2 % 4.2-5.6 H TSH, THIRD [id number] 06:43:39 Test Item Value Reference Range Interpretation Comments TSH, THIRD GENERATION (test 82.000 UIU/ML 0.400-4.100 H code = 2821) HIV 1/2 4TH GEN, RFLX [id number] 05:21:13 Test Item Value Reference Range Interpretation Comments HIV 1/2 4TH GEN, RFLX CONF (test NON-REACTIVE NON-REACTIVE code = 3514) HEPATITIS PANEL, [id number] 05:21:13 Test Item Value Reference Range Interpretation Comments HEPATITIS A IgM (test NON-REACTIVE NON-REACTIVE code = 10515) HEPATITIS B CORE IgM NON-REACTIVE NON-REACTIVE (test code = 4644) HEPATITIS B SURF AG NON-REACTIVE NON-REACTIVE (test code = 2739) HEPATITIS C ANTIBODY NON-REACTIVE NON-REACTIVE (test code = 4675) INTERPRETATION (NOTE) Hepatitis A HEPATITIS A: (test serology shows no code = 2552) evidence of acu te hepatitis A. INTERPRETATION (NOTE) Hepatitis B HEPATITIS B: (test serology shows no code = 74371) evidence of ac tonto apache hepatitis B and no indication of exposure to hepatitis B vir us in the previous si xto eight months. INTERPRETATION (NOTE) Hepatitis C HEPATITIS C: (test serology shows no code = 45728) evidence of ex posure to hepatitisC v irus at this time. I t can take up to 12 m onths after exposure tothe hepatitis C vir us for antibodies to become detectab le in the blood in ce rtain patients. UNLES S OTHERWISE INDIC ATED, ALL TESTING PERFORMED [facility], [facility] [place]. [address] [facility] [place] [address] [facility] DIRECTOR: LATOYA MCCALL M.D. CLIA NUMBER [id number] [place]. [id number] LIPID [id number] 03:30:59 Test Item Value Reference Range Interpretation [...] MOREINFORMATION , SEE CLIENT ANNOUNCE MENT AT [email or web address] CalcLDL-C RISK RATIO LDL/HDL (NOTE) RATIO <3.55 UNABLE T O CALCULATE (test code = 2238) COMPREHENSIVE METABOLIC [id number] 03:30:59 Test Item Value Reference Range Interpretation Comments GLUCOSE (test code = 117 MG/DL 70-99 H 2216) BUN (test code = 54 MG/DL 6-20 H 2207) CREATININE (test 11.27 MG/DL 0.80-1.40 H code = 2214) eGFR (2020 CKD-EPI) 5 ML/MIN/1.73 >60 L (test code = 87044) CALC BUN/CREAT (test 5 RATIO 6-28 L code = 223) SODIUM (test code = 139 MEQ/L 442-001 8613) POTASSIUM (test code 4.2 MEQ/L 3.5-5.4 = [...] = 8 U/L 5-50 2218) CBC W/AUTO [id number] 00:00:00 Test Item Value Reference Range Interpretation [...] NUCLEATED RBCS (test code = 0.00 K/UL 66260) CBC W/AUTO [id number] 00:00:00 Test Item Value Reference Range Interpretation [...] NUCLEATED RBCS (test code = 0.00 K/UL 63014) CBC W/AUTO [id number] 00:00:00 Test Item Value Reference Range Interpretation [...] NUCLEATED RBCS (test code = 0.00 K/UL 15802) HEMOGLOBIN [id number] 00:00:00 Test Item Value Reference Range Interpretation Comments HEMOGLOBIN A1c (test code = 11184) 6.2 % HEMOGLOBIN [id number] 00:00:00 Test Item Value Reference Range Interpretation Comments HEMOGLOBIN A1c (test code = 07449) 6.2 % HEMOGLOBIN [id number] 00:00:00 Test Item Value Reference Range Interpretation Comments HEMOGLOBIN A1c (test code = 45504) 6.2 % LIPID [id number] 00:00:00 Test Item Value Reference Range Interpretation Comments CHOLESTEROL (test code = 2210) 196 MG/DL TRIGLYCERIDES (test code = 2232) 486 MG/DL HDL CHOLESTEROL (test code = 44 MG/DL 2220) CALC LDL CHOL (test code = 2237) (NOTE) MG/DL RISK RATIO LDL/HDL (test code = (NOTE) RATIO 2238) LIPID [id number] 00:00:00 Test Item Value Reference Range Interpretation Comments CHOLESTEROL (test code = 2210) 196 MG/DL TRIGLYCERIDES (test code = 2232) 486 MG/DL HDL CHOLESTEROL (test code = 44 MG/DL 2220) CALC LDL CHOL (test code = 2237) (NOTE) MG/DL RISK RATIO LDL/HDL (test code = (NOTE) RATIO 2238) COMPREHENSIVE METABOLIC [id number] 00:00:00 Test Item Value Reference Range Interpretation Comments GLUCOSE (test code = 2217) 117 MG/DL BUN (test code = 2208) 54 MG/DL CREATININE (test code = 2214) 11.27 MG/DL eGFR (2020 CKD-EPI) (test code 5 ML/MIN/1.73 = 46017) CALC BUN/CREAT (test code = 5 RATIO [...] code = 2219) 8 U/L COMPREHENSIVE METABOLIC [id number] 00:00:00 Test Item Value Reference Range Interpretation Comments GLUCOSE (test code = 2217) 117 MG/DL BUN (test code = 2208) 54 MG/DL CREATININE (test code = 2214) 11.27 MG/DL eGFR (2020 CKD-EPI) (test code 5 ML/MIN/1.73 = 12477) CALC BUN/CREAT (test code = 5 RATIO [...] ALT (test code = 2219) 8 U/L [id number] 00:00:00 Test Item Value Reference Range Interpretation Comments TSH, THIRD GENERATION (test 82.000 UIU/ML code = 2821) [id number] 00:00:00 Test Item Value Reference Range Interpretation Comments TSH, THIRD GENERATION (test 82.000 UIU/ML code = 2821) [id number] 00:00:00 Test Item Value Reference Range Interpretation Comments TSH, THIRD GENERATION (test 82.000 UIU/ML code = 2821) HIV AB/AG COMBO RFLX [id number] 00:00:00 Test Item Value Reference Range Interpretation Comments HIV 1/2 4TH GEN, RFLX CONF (test NON-REACTIVE code = 3514) HIV AB/AG COMBO RFLX [id number] 00:00:00 Test Item Value Reference Range Interpretation Comments HIV 1/2 4TH GEN, RFLX CONF (test NON-REACTIVE code = 3514) ACUTE HEPATITIS [id number] 00:00:00 Test Item Value Reference Range Interpretation Comments HEPATITIS A IgM (test code = NON-REACTIVE 90180) HEPATITIS B CORE IgM (test code NON-REACTIVE = 4644) HEPATITIS B SURF AG (test code = NON-REACTIVE 2739) HEPATITIS C ANTIBODY (test code NON-REACTIVE = 4675) INTERPRETATION HEPATITIS A: (NOTE) (test code = 2552) INTERPRETATION HEPATITIS B: (NOTE) (test code = 65338) INTERPRETATION HEPATITIS C: (NOTE) (test code = 26701) ACUTE HEPATITIS [id number] 00:00:00 Test Item Value Reference Range Interpretation Comments HEPATITIS A IgM (test code = NON-REACTIVE 39788) HEPATITIS B CORE IgM (test code NON-REACTIVE = 4644) HEPATITIS B SURF AG (test code = NON-REACTIVE 2739) HEPATITIS C ANTIBODY (test code NON-REACTIVE = 4675) INTERPRETATION HEPATITIS A: (NOTE) (test code = 2552) INTERPRETATION HEPATITIS B: (NOTE) (test code = 13456) INTERPRETATION HEPATITIS C: (NOTE) (test code = 25602) CBC W/AUTO [id number] 00:00:00 Test Item Value Reference Range Interpretation [...] NUCLEATED RBCS (test code = 0.00 K/UL 69295) CBC W/AUTO [id number] 00:00:00 Test Item Value Reference Range Interpretation [...] NUCLEATED RBCS (test code = 0.00 K/UL 76032) CBC W/AUTO [id number] 00:00:00 Test Item Value Reference Range Interpretation [...] NUCLEATED RBCS (test code = 0.00 K/UL 21564) HEMOGLOBIN [id number] 00:00:00 Test Item Value Reference Range Interpretation Comments HEMOGLOBIN A1c (test code = 89870) 6.2 % HEMOGLOBIN [id number] 00:00:00 Test Item Value Reference Range Interpretation Comments HEMOGLOBIN A1c (test code = 10748) 6.2 % HEMOGLOBIN [id number] 00:00:00 Test Item Value Reference Range Interpretation Comments HEMOGLOBIN A1c (test code = 16924) 6.2 % LIPID [id number] 00:00:00 Test Item Value Reference Range Interpretation Comments CHOLESTEROL (test code = 2210) 196 MG/DL TRIGLYCERIDES (test code = 2232) 486 MG/DL HDL CHOLESTEROL (test code = 44 MG/DL 2220) CALC LDL CHOL (test code = 2237) (NOTE) MG/DL RISK RATIO LDL/HDL (test code = (NOTE) RATIO 2238) LIPID [id number] 00:00:00 Test Item Value Reference Range Interpretation Comments CHOLESTEROL (test code = 2210) 196 MG/DL TRIGLYCERIDES (test code = 2232) 486 MG/DL HDL CHOLESTEROL (test code = 44 MG/DL 2220) CALC LDL CHOL (test code = 2237) (NOTE) MG/DL RISK RATIO LDL/HDL (test code = (NOTE) RATIO 2238) COMPREHENSIVE METABOLIC [id number] 00:00:00 Test Item Value Reference Range Interpretation Comments GLUCOSE (test code = 2217) 117 MG/DL BUN (test code = 2208) 54 MG/DL CREATININE (test code = 2214) 11.27 MG/DL eGFR (2020 CKD-EPI) (test code 5 ML/MIN/1.73 = 54812) CALC BUN/CREAT (test code = 5 RATIO [...] code = 2219) 8 U/L COMPREHENSIVE METABOLIC [id number] 00:00:00 Test Item Value Reference Range Interpretation Comments GLUCOSE (test code = 2217) 117 MG/DL BUN (test code = 2208) 54 MG/DL CREATININE (test code = 2214) 11.27 MG/DL eGFR (2020 CKD-EPI) (test code 5 ML/MIN/1.73 = 17379) CALC BUN/CREAT (test code = 5 RATIO [...] ALT (test code = 2219) 8 U/L [id number] 00:00:00 Test Item Value Reference Range Interpretation Comments TSH, THIRD GENERATION (test 82.000 UIU/ML code = 2821) [id number] 00:00:00 Test Item Value Reference Range Interpretation Comments TSH, THIRD GENERATION (test 82.000 UIU/ML code = 2821) [id number] 00:00:00 Test Item Value Reference Range Interpretation Comments TSH, THIRD GENERATION (test 82.000 UIU/ML code = 2821) HIV AB/AG COMBO RFLX [id number] 00:00:00 Test Item Value Reference Range Interpretation Comments HIV 1/2 4TH GEN, RFLX CONF (test NON-REACTIVE code = 3514) HIV AB/AG COMBO RFLX [id number] 00:00:00 Test Item Value Reference Range Interpretation Comments HIV 1/2 4TH GEN, RFLX CONF (test NON-REACTIVE code = 3514) ACUTE HEPATITIS [id number] 00:00:00 Test Item Value Reference Range Interpretation Comments HEPATITIS A IgM (test code = NON-REACTIVE 56243) HEPATITIS B CORE IgM (test code NON-REACTIVE = 4644) HEPATITIS B SURF AG (test code = NON-REACTIVE 2739) HEPATITIS C ANTIBODY (test code NON-REACTIVE = 4675) INTERPRETATION HEPATITIS A: (NOTE) (test code = 2552) INTERPRETATION HEPATITIS B: (NOTE) (test code = 13069) INTERPRETATION HEPATITIS C: (NOTE) (test code = 98287) ACUTE HEPATITIS [id number] 00:00:00 Test Item Value Reference Range Interpretation Comments HEPATITIS A IgM (test code = NON-REACTIVE 14755) HEPATITIS B CORE IgM (test code NON-REACTIVE = 4644) HEPATITIS B SURF AG (test code = NON-REACTIVE 2739) HEPATITIS C ANTIBODY (test code NON-REACTIVE = 4675) INTERPRETATION HEPATITIS A: (NOTE) (test code = 2552) INTERPRETATION HEPATITIS B: (NOTE) (test code = 42472) INTERPRETATION HEPATITIS C: (NOTE) (test code = 82395) CBC W/AUTO [id number] 00:00:00 Test Item Value Reference Range Interpretation [...] NUCLEATED RBCS (test code = 0.00 K/UL 29844) CBC W/AUTO [id number] 00:00:00 Test Item Value Reference Range Interpretation [...] NUCLEATED RBCS (test code = 0.00 K/UL 64153) CBC W/AUTO [id number] 00:00:00 Test Item Value Reference Range Interpretation [...] NUCLEATED RBCS (test code = 0.00 K/UL 88304) CBC W/AUTO [id number] 00:00:00 Test Item Value Reference Range Interpretation [...] NUCLEATED RBCS (test code = 0.00 K/UL 79056) CBC W/AUTO [id number] 00:00:00 Test Item Value Reference Range Interpretation [...] NUCLEATED RBCS (test code = 0.00 K/UL 03869) HEMOGLOBIN [id number] 00:00:00 Test Item Value Reference Range Interpretation Comments HEMOGLOBIN A1c (test code = 47094) 6.2 % HEMOGLOBIN [id number] 00:00:00 Test Item Value Reference Range Interpretation Comments HEMOGLOBIN A1c (test code = 68933) 6.2 % HEMOGLOBIN [id number] 00:00:00 Test Item Value Reference Range Interpretation Comments HEMOGLOBIN A1c (test code = 50620) 6.2 % LIPID [id number] 00:00:00 Test Item Value Reference Range Interpretation Comments CHOLESTEROL (test code = 2210) 196 MG/DL TRIGLYCERIDES (test code = 2232) 486 MG/DL HDL CHOLESTEROL (test code = 44 MG/DL 2220) CALC LDL CHOL (test code = 2237) (NOTE) MG/DL RISK RATIO LDL/HDL (test code = (NOTE) RATIO 2238) LIPID [id number] 00:00:00 Test Item Value Reference Range Interpretation Comments CHOLESTEROL (test code = 2210) 196 MG/DL TRIGLYCERIDES (test code = 2232) 486 MG/DL HDL CHOLESTEROL (test code = 44 MG/DL 2220) CALC LDL CHOL (test code = 2237) (NOTE) MG/DL RISK RATIO LDL/HDL (test code = (NOTE) RATIO 2238) COMPREHENSIVE METABOLIC [id number] 00:00:00 Test Item Value Reference Range Interpretation Comments GLUCOSE (test code = 2217) 117 MG/DL BUN (test code = 2208) 54 MG/DL CREATININE (test code = 2214) 11.27 MG/DL eGFR (2020 CKD-EPI) (test code 5 ML/MIN/1.73 = 06791) CALC BUN/CREAT (test code = 5 RATIO [...] code = 2219) 8 U/L COMPREHENSIVE METABOLIC [id number] 00:00:00 Test Item Value Reference Range Interpretation Comments GLUCOSE (test code = 2217) 117 MG/DL BUN (test code = 2208) 54 MG/DL CREATININE (test code = 2214) 11.27 MG/DL eGFR (2020 CKD-EPI) (test code 5 ML/MIN/1.73 = 44647) CALC BUN/CREAT (test code = 5 RATIO [...] ALT (test code = 2219) 8 U/L [id number] 00:00:00 Test Item Value Reference Range Interpretation Comments TSH, THIRD GENERATION (test 82.000 UIU/ML code = 2821) [id number] 00:00:00 Test Item Value Reference Range Interpretation Comments TSH, THIRD GENERATION (test 82.000 UIU/ML code = 2821) [id number] 00:00:00 Test Item Value Reference Range Interpretation Comments TSH, THIRD GENERATION (test 82.000 UIU/ML code = 2821) HIV AB/AG COMBO RFLX [id number] 00:00:00 Test Item Value Reference Range Interpretation Comments HIV 1/2 4TH GEN, RFLX CONF (test NON-REACTIVE code = 3514) HIV AB/AG COMBO RFLX [id number] 00:00:00 Test Item Value Reference Range Interpretation Comments HIV 1/2 4TH GEN, RFLX CONF (test NON-REACTIVE code = 3514) ACUTE HEPATITIS [id number] 00:00:00 Test Item Value Reference Range Interpretation Comments HEPATITIS A IgM (test code = NON-REACTIVE 89180) HEPATITIS B CORE IgM (test code NON-REACTIVE = 2189) HEPATITIS B SURF AG (test code = NON-REACTIVE 9209) HEPATITIS C ANTIBODY (test code NON-REACTIVE = 4272) INTERPRETATION HEPATITIS A: (NOTE) (test code = 2552) INTERPRETATION HEPATITIS B: (NOTE) (test code = 84110) INTERPRETATION HEPATITIS C: (NOTE) (test code = 68420) ACUTE HEPATITIS [id number] 00:00:00 Test Item Value Reference Range Interpretation Comments HEPATITIS A IgM (test code = NON-REACTIVE 26532) HEPATITIS B CORE IgM (test code NON-REACTIVE = 4644) HEPATITIS B SURF AG (test code = NON-REACTIVE 9959) HEPATITIS C ANTIBODY (test code NON-REACTIVE = 1908) INTERPRETATION HEPATITIS A: (NOTE) (test code = 2552) INTERPRETATION HEPATITIS B: (NOTE) (test code = 67925) INTERPRETATION HEPATITIS C: (NOTE) (test code = 26916) HEMOGLOBIN [id number] 00:00:00 Test Item Value Reference Range Interpretation Comments HEMOGLOBIN A1c (test code = 44422) 6.2 % HEMOGLOBIN [id number] 00:00:00 Test Item Value Reference Range Interpretation Comments HEMOGLOBIN A1c (test code = 90002) 6.2 % LIPID [id number] 00:00:00 Test Item Value Reference Range Interpretation Comments CHOLESTEROL (test code = 2210) 196 MG/DL TRIGLYCERIDES (test code = 2232) 486 MG/DL HDL CHOLESTEROL (test code = 44 MG/DL 0) CALC LDL CHOL (test code = 2237) (NOTE) MG/DL RISK RATIO LDL/HDL (test code = (NOTE) RATIO 2238) COMPREHENSIVE METABOLIC [id number] 00:00:00 Test Item Value Reference Range Interpretation Comments GLUCOSE (test code = 2217) 117 MG/DL BUN (test code = 2208) 54 MG/DL CREATININE (test code = 2214) 11.27 MG/DL eGFR (2020 CKD-EPI) (test code 5 ML/MIN/1.73 = 49011) CALC BUN/CREAT (test code = 5 RATIO [...] code = 2219) 8 U/L CBC W/AUTO [id number] 00:00:00 Test Item Value Reference Range Interpretation [...] NUCLEATED RBCS (test code = 0.00 K/UL 02447) CBC W/AUTO [id number] 00:00:00 Test Item Value Reference Range Interpretation [...] NUCLEATED RBCS (test code = 0.00 K/UL 70960) CBC W/AUTO [id number] 00:00:00 Test Item Value Reference Range Interpretation [...] NUCLEATED RBCS (test code = 0.00 K/UL 16949) [id number] 00:00:00 Test Item Value Reference Range Interpretation Comments TSH, THIRD GENERATION (test 82.000 UIU/ML code = 2821) HEMOGLOBIN [id number] 00:00:00 Test Item Value Reference Range Interpretation Comments HEMOGLOBIN A1c (test code = 38010) 6.2 % HEMOGLOBIN [id number] 00:00:00 Test Item Value Reference Range Interpretation Comments HEMOGLOBIN A1c (test code = 63372) 6.2 % [id number] 00:00:00 Test Item Value Reference Range Interpretation Comments TSH, THIRD GENERATION (test 82.000 UIU/ML code = 2821) HEMOGLOBIN [id number] 00:00:00 Test Item Value Reference Range Interpretation Comments HEMOGLOBIN A1c (test code = 11064) 6.2 % HIV AB/AG COMBO RFLX [id number] 00:00:00 Test Item Value Reference Range Interpretation Comments HIV 1/2 4TH GEN, RFLX CONF (test NON-REACTIVE code = 3514) LIPID [id number] 00:00:00 Test Item Value Reference Range Interpretation Comments CHOLESTEROL (test code = 2210) 196 MG/DL TRIGLYCERIDES (test code = 2232) 486 MG/DL HDL CHOLESTEROL (test code = 44 MG/DL 2220) CALC LDL CHOL (test code = 2237) (NOTE) MG/DL RISK RATIO LDL/HDL (test code = (NOTE) RATIO 2238) LIPID [id number] 00:00:00 Test Item Value Reference Range Interpretation Comments CHOLESTEROL (test code = 2210) 196 MG/DL TRIGLYCERIDES (test code = 2232) 486 MG/DL HDL CHOLESTEROL (test code = 44 MG/DL 2220) CALC LDL CHOL (test code = 2237) (NOTE) MG/DL RISK RATIO LDL/HDL (test code = (NOTE) RATIO 2238) ACUTE HEPATITIS [id number] 00:00:00 Test Item Value Reference Range Interpretation Comments HEPATITIS A IgM (test code = NON-REACTIVE 53223) HEPATITIS B CORE IgM (test code NON-REACTIVE = 4644) HEPATITIS B SURF AG (test code = NON-REACTIVE 5259) HEPATITIS C ANTIBODY (test code NON-REACTIVE = 4652) INTERPRETATION HEPATITIS A: (NOTE) (test code = 2552) INTERPRETATION HEPATITIS B: (NOTE) (test code = 76268) INTERPRETATION HEPATITIS C: (NOTE) (test code = 46174) COMPREHENSIVE METABOLIC [id number] 00:00:00 Test Item Value Reference Range Interpretation Comments GLUCOSE (test code = 2217) 117 MG/DL BUN (test code = 2208) 54 MG/DL CREATININE (test code = 2214) 11.27 MG/DL eGFR (2020 CKD-EPI) (test code 5 ML/MIN/1.73 = 58249) CALC BUN/CREAT (test code = 5 RATIO [...] code = 2219) 8 U/L COMPREHENSIVE METABOLIC [id number] 00:00:00 Test Item Value Reference Range Interpretation Comments GLUCOSE (test code = 2217) 117 MG/DL BUN (test code = 2208) 54 MG/DL CREATININE (test code = 2214) 11.27 MG/DL eGFR (2020 CKD-EPI) (test code 5 ML/MIN/1.73 = 82336) CALC BUN/CREAT (test code = 5 RATIO [...] ALT (test code = 2219) 8 U/L [id number] 00:00:00 Test Item Value Reference Range Interpretation Comments TSH, THIRD GENERATION (test 82.000 UIU/ML code = 2821) [id number] 00:00:00 Test Item Value Reference Range Interpretation Comments TSH, THIRD GENERATION (test 82.000 UIU/ML code = 2821) [id number] 00:00:00 Test Item Value Reference Range Interpretation Comments TSH, THIRD GENERATION (test 82.000 UIU/ML code = 2821) HIV AB/AG COMBO RFLX [id number] 00:00:00 Test Item Value Reference Range Interpretation Comments HIV 1/2 4TH GEN, RFLX CONF (test NON-REACTIVE code = 3514) HIV AB/AG COMBO RFLX [id number] 00:00:00 Test Item Value Reference Range Interpretation Comments HIV 1/2 4TH GEN, RFLX CONF (test NON-REACTIVE code = 3514) ACUTE HEPATITIS [id number] 00:00:00 Test Item Value Reference Range Interpretation Comments HEPATITIS A IgM (test code = NON-REACTIVE 07609) HEPATITIS B CORE IgM (test code NON-REACTIVE = 4644) HEPATITIS B SURF AG (test code = NON-REACTIVE 0079) HEPATITIS C ANTIBODY (test code NON-REACTIVE = 4675) INTERPRETATION HEPATITIS A: (NOTE) (test code = 2552) INTERPRETATION HEPATITIS B: (NOTE) (test code = 00140) INTERPRETATION HEPATITIS C: (NOTE) (test code = 49097) ACUTE HEPATITIS [id number] 00:00:00 Test Item Value Reference Range Interpretation Comments HEPATITIS A IgM (test code = NON-REACTIVE 31976) HEPATITIS B CORE IgM (test code NON-REACTIVE = 4644) HEPATITIS B SURF AG (test code = NON-REACTIVE 2739) HEPATITIS C ANTIBODY (test code NON-REACTIVE = 4619) INTERPRETATION HEPATITIS A: (NOTE) (test code = 2552) INTERPRETATION HEPATITIS B: (NOTE) (test code = 71744) INTERPRETATION HEPATITIS C: (NOTE) (test code = 80700) CBC W/AUTO [id number] 00:00:00 Test Item Value Reference Range Interpretation [...] NUCLEATED RBCS (test code = 0.00 K/UL 56281) CBC W/AUTO [id number] 00:00:00 Test Item Value Reference Range Interpretation [...] NUCLEATED RBCS (test code = 0.00 K/UL 82739) CBC W/AUTO [id number] 00:00:00 Test Item Value Reference Range Interpretation [...] NUCLEATED RBCS (test code = 0.00 K/UL 87916) HEMOGLOBIN [id number] 00:00:00 Test Item Value Reference Range Interpretation Comments HEMOGLOBIN A1c (test code = 01428) 6.2 % HEMOGLOBIN [id number] 00:00:00 Test Item Value Reference Range Interpretation Comments HEMOGLOBIN A1c (test code = 92793) 6.2 % HEMOGLOBIN [id number] 00:00:00 Test Item Value Reference Range Interpretation Comments HEMOGLOBIN A1c (test code = 60107) 6.2 % LIPID [id number] 00:00:00 Test Item Value Reference Range Interpretation Comments CHOLESTEROL (test code = 2210) 196 MG/DL TRIGLYCERIDES (test code = 2232) 486 MG/DL HDL CHOLESTEROL (test code = 44 MG/DL 2220) CALC LDL CHOL (test code = 2237) (NOTE) MG/DL RISK RATIO LDL/HDL (test code = (NOTE) RATIO 2238) LIPID [id number] 00:00:00 Test Item Value Reference Range Interpretation Comments CHOLESTEROL (test code = 2210) 196 MG/DL TRIGLYCERIDES (test code = 2232) 486 MG/DL HDL CHOLESTEROL (test code = 44 MG/DL 2220) CALC LDL CHOL (test code = 2237) (NOTE) MG/DL RISK RATIO LDL/HDL (test code = (NOTE) RATIO 2238) COMPREHENSIVE METABOLIC [id number] 00:00:00 Test Item Value Reference Range Interpretation Comments GLUCOSE (test code = 2217) 117 MG/DL BUN (test code = 2208) 54 MG/DL CREATININE (test code = 2214) 11.27 MG/DL eGFR (2020 CKD-EPI) (test code 5 ML/MIN/1.73 = 92569) CALC BUN/CREAT (test code = 5 RATIO [...] code = 2219) 8 U/L COMPREHENSIVE METABOLIC [id number] 00:00:00 Test Item Value Reference Range Interpretation Comments GLUCOSE (test code = 2217) 117 MG/DL BUN (test code = 2208) 54 MG/DL CREATININE (test code = 2214) 11.27 MG/DL eGFR (2020 CKD-EPI) (test code 5 ML/MIN/1.73 = 79488) CALC BUN/CREAT (test code = 5 RATIO [...] ALT (test code = 2219) 8 U/L [id number] 00:00:00 Test Item Value Reference Range Interpretation Comments TSH, THIRD GENERATION (test 82.000 UIU/ML code = 2821) [id number] 00:00:00 Test Item Value Reference Range Interpretation Comments TSH, THIRD GENERATION (test 82.000 UIU/ML code = 2821) [id number] 00:00:00 Test Item Value Reference Range Interpretation Comments TSH, THIRD GENERATION (test 82.000 UIU/ML code = 2821) HIV AB/AG COMBO RFLX [id number] 00:00:00 Test Item Value Reference Range Interpretation Comments HIV 1/2 4TH GEN, RFLX CONF (test NON-REACTIVE code = 3514) HIV AB/AG COMBO RFLX [id number] 00:00:00 Test Item Value Reference Range Interpretation Comments HIV 1/2 4TH GEN, RFLX CONF (test NON-REACTIVE code = 3514) ACUTE HEPATITIS [id number] 00:00:00 Test Item Value Reference Range Interpretation Comments HEPATITIS A IgM (test code = NON-REACTIVE 09445) HEPATITIS B CORE IgM (test code NON-REACTIVE = 4644) HEPATITIS B SURF AG (test code = NON-REACTIVE 2739) HEPATITIS C ANTIBODY (test code NON-REACTIVE = 4675) INTERPRETATION HEPATITIS A: (NOTE) (test code = 2552) INTERPRETATION HEPATITIS B: (NOTE) (test code = 25454) INTERPRETATION HEPATITIS C: (NOTE) (test code = 94080) ACUTE HEPATITIS [id number] 00:00:00 Test Item Value Reference Range Interpretation Comments HEPATITIS A IgM (test code = NON-REACTIVE 95579) HEPATITIS B CORE IgM (test code NON-REACTIVE = 4644) HEPATITIS B SURF AG (test code = NON-REACTIVE 2739) HEPATITIS C ANTIBODY (test code NON-REACTIVE = 4675) INTERPRETATION HEPATITIS A: (NOTE) (test code = 2552) INTERPRETATION HEPATITIS B: (NOTE) (test code = 91016) INTERPRETATION HEPATITIS C: (NOTE) (test code = 78768) CBC W/AUTO [id number] 00:00:00 Test Item Value Reference Range Interpretation [...] NUCLEATED RBCS (test code = 0.00 K/UL 29301) CBC W/AUTO [id number] 00:00:00 Test Item Value Reference Range Interpretation [...] NUCLEATED RBCS (test code = 0.00 K/UL 54805) CBC W/AUTO [id number] 00:00:00 Test Item Value Reference Range Interpretation [...] NUCLEATED RBCS (test code = 0.00 K/UL 69173) HEMOGLOBIN [id number] 00:00:00 Test Item Value Reference Range Interpretation Comments HEMOGLOBIN A1c (test code = 77366) 6.2 % HEMOGLOBIN [id number] 00:00:00 Test Item Value Reference Range Interpretation Comments HEMOGLOBIN A1c (test code = 57933) 6.2 % HEMOGLOBIN [id number] 00:00:00 Test Item Value Reference Range Interpretation Comments HEMOGLOBIN A1c (test code = 18227) 6.2 % LIPID [id number] 00:00:00 Test Item Value Reference Range Interpretation Comments CHOLESTEROL (test code = 2210) 196 MG/DL TRIGLYCERIDES (test code = 2232) 486 MG/DL HDL CHOLESTEROL (test code = 44 MG/DL 2220) CALC LDL CHOL (test code = 2237) (NOTE) MG/DL RISK RATIO LDL/HDL (test code = (NOTE) RATIO 2238) LIPID [id number] 00:00:00 Test Item Value Reference Range Interpretation Comments CHOLESTEROL (test code = 2210) 196 MG/DL TRIGLYCERIDES (test code = 2232) 486 MG/DL HDL CHOLESTEROL (test code = 44 MG/DL 2220) CALC LDL CHOL (test code = 2237) (NOTE) MG/DL RISK RATIO LDL/HDL (test code = (NOTE) RATIO 2238) COMPREHENSIVE METABOLIC [id number] 00:00:00 Test Item Value Reference Range Interpretation Comments GLUCOSE (test code = 2217) 117 MG/DL BUN (test code = 2208) 54 MG/DL CREATININE (test code = 2214) 11.27 MG/DL eGFR (2020 CKD-EPI) (test code 5 ML/MIN/1.73 = 32784) CALC BUN/CREAT (test code = 5 RATIO [...] code = 2219) 8 U/L COMPREHENSIVE METABOLIC [id number] 00:00:00 Test Item Value Reference Range Interpretation Comments GLUCOSE (test code = 2217) 117 MG/DL BUN (test code = 2208) 54 MG/DL CREATININE (test code = 2214) 11.27 MG/DL eGFR (2020 CKD-EPI) (test code 5 ML/MIN/1.73 = 68298) CALC BUN/CREAT (test code = 5 RATIO [...] ALT (test code = 2219) 8 U/L [id number] 00:00:00 Test Item Value Reference Range Interpretation Comments TSH, THIRD GENERATION (test 82.000 UIU/ML code = 2821) [id number] 00:00:00 Test Item Value Reference Range Interpretation Comments TSH, THIRD GENERATION (test 82.000 UIU/ML code = 2821) [id number] 00:00:00 Test Item Value Reference Range Interpretation Comments TSH, THIRD GENERATION (test 82.000 UIU/ML code = 2821) HIV AB/AG COMBO RFLX [id number] 00:00:00 Test Item Value Reference Range Interpretation Comments HIV 1/2 4TH GEN, RFLX CONF (test NON-REACTIVE code = 3514) HIV AB/AG COMBO RFLX [id number] 00:00:00 Test Item Value Reference Range Interpretation Comments HIV 1/2 4TH GEN, RFLX CONF (test NON-REACTIVE code = 3514) ACUTE HEPATITIS [id number] 00:00:00 Test Item Value Reference Range Interpretation Comments HEPATITIS A IgM (test code = NON-REACTIVE 23019) HEPATITIS B CORE IgM (test code NON-REACTIVE = 0084) HEPATITIS B SURF AG (test code = NON-REACTIVE 6244) HEPATITIS C ANTIBODY (test code NON-REACTIVE = 7652) INTERPRETATION HEPATITIS A: (NOTE) (test code = 2552) INTERPRETATION HEPATITIS B: (NOTE) (test code = 18691) INTERPRETATION HEPATITIS C: (NOTE) (test code = 88500) ACUTE HEPATITIS [id number] 00:00:00 Test Item Value Reference Range Interpretation Comments HEPATITIS A IgM (test code = NON-REACTIVE 12286) HEPATITIS B CORE IgM (test code NON-REACTIVE = 4644) HEPATITIS B SURF AG (test code = NON-REACTIVE 0659) HEPATITIS C ANTIBODY (test code NON-REACTIVE = 8475) INTERPRETATION HEPATITIS A: (NOTE) (test code = 2552) INTERPRETATION HEPATITIS B: (NOTE) (test code = 69977) INTERPRETATION HEPATITIS C: (NOTE) (test code = 21400) CBC W/AUTO [id number] 00:00:00 Test Item Value Reference Range Interpretation [...] NUCLEATED RBCS (test code = 0.00 K/UL 94352) CBC W/AUTO [id number] 00:00:00 Test Item Value Reference Range Interpretation [...] NUCLEATED RBCS (test code = 0.00 K/UL 08217) CBC W/AUTO [id number] 00:00:00 Test Item Value Reference Range Interpretation [...] NUCLEATED RBCS (test code = 0.00 K/UL 10607) HEMOGLOBIN [id number] 00:00:00 Test Item Value Reference Range Interpretation Comments HEMOGLOBIN A1c (test code = 93253) 6.2 % HEMOGLOBIN [id number] 00:00:00 Test Item Value Reference Range Interpretation Comments HEMOGLOBIN A1c (test code = 93606) 6.2 % HEMOGLOBIN [id number] 00:00:00 Test Item Value Reference Range Interpretation Comments HEMOGLOBIN A1c (test code = 17718) 6.2 % LIPID [id number] 00:00:00 Test Item Value Reference Range Interpretation Comments CHOLESTEROL (test code = 2210) 196 MG/DL TRIGLYCERIDES (test code = 2232) 486 MG/DL HDL CHOLESTEROL (test code = 44 MG/DL 2220) CALC LDL CHOL (test code = 2237) (NOTE) MG/DL RISK RATIO LDL/HDL (test code = (NOTE) RATIO 2238) LIPID [id number] 00:00:00 Test Item Value Reference Range Interpretation Comments CHOLESTEROL (test code = 2210) 196 MG/DL TRIGLYCERIDES (test code = 2232) 486 MG/DL HDL CHOLESTEROL (test code = 44 MG/DL 2220) CALC LDL CHOL (test code = 2237) (NOTE) MG/DL RISK RATIO LDL/HDL (test code = (NOTE) RATIO 2238) COMPREHENSIVE METABOLIC [id number] 00:00:00 Test Item Value Reference Range Interpretation Comments GLUCOSE (test code = 2217) 117 MG/DL BUN (test code = 2208) 54 MG/DL CREATININE (test code = 2214) 11.27 MG/DL eGFR (2020 CKD-EPI) (test code 5 ML/MIN/1.73 = 60128) CALC BUN/CREAT (test code = 5 RATIO [...] code = 2219) 8 U/L COMPREHENSIVE METABOLIC [id number] 00:00:00 Test Item Value Reference Range Interpretation Comments GLUCOSE (test code = 2217) 117 MG/DL BUN (test code = 2208) 54 MG/DL CREATININE (test code = 2214) 11.27 MG/DL eGFR (2020 CKD-EPI) (test code 5 ML/MIN/1.73 = 39561) CALC BUN/CREAT (test code = 5 RATIO [...] ALT (test code = 2219) 8 U/L [id number] 00:00:00 Test Item Value Reference Range Interpretation Comments TSH, THIRD GENERATION (test 82.000 UIU/ML code = 2821) [id number] 00:00:00 Test Item Value Reference Range Interpretation Comments TSH, THIRD GENERATION (test 82.000 UIU/ML code = 2821) [id number] 00:00:00 Test Item Value Reference Range Interpretation Comments TSH, THIRD GENERATION (test 82.000 UIU/ML code = 2821) HIV AB/AG COMBO RFLX [id number] 00:00:00 Test Item Value Reference Range Interpretation Comments HIV 1/2 4TH GEN, RFLX CONF (test NON-REACTIVE code = 3514) HIV AB/AG COMBO RFLX [id number] 00:00:00 Test Item Value Reference Range Interpretation Comments HIV 1/2 4TH GEN, RFLX CONF (test NON-REACTIVE code = 3514) ACUTE HEPATITIS [id number] 00:00:00 Test Item Value Reference Range Interpretation Comments HEPATITIS A IgM (test code = NON-REACTIVE 51419) HEPATITIS B CORE IgM (test code NON-REACTIVE = 4644) HEPATITIS B SURF AG (test code = NON-REACTIVE 2739) HEPATITIS C ANTIBODY (test code NON-REACTIVE = 4675) INTERPRETATION HEPATITIS A: (NOTE) (test code = 2552) INTERPRETATION HEPATITIS B: (NOTE) (test code = 67798) INTERPRETATION HEPATITIS C: (NOTE) (test code = 61429) ACUTE HEPATITIS [id number] 00:00:00 Test Item Value Reference Range Interpretation Comments HEPATITIS A IgM (test code = NON-REACTIVE 43540) HEPATITIS B CORE IgM (test code NON-REACTIVE = 4644) HEPATITIS B SURF AG (test code = NON-REACTIVE 2739) HEPATITIS C ANTIBODY (test code NON-REACTIVE = 4675) INTERPRETATION HEPATITIS A: (NOTE) (test code = 2552) INTERPRETATION HEPATITIS B: (NOTE) (test code = 53070) INTERPRETATION HEPATITIS C: (NOTE) (test code = 07434) TSH, THIRD [id number] 05:58:13 Test Item Value Reference Range Interpretation Comments TSH, THIRD 33.700 UIU/ML 0.400-4.100 H UNLESS OTHERW ISE GENERATION (test INDICATED, ALL code = 2821) TESTING PERFORM [facility] [place] [address] [place] [address] [facility] DIRECTOR: LATOYA MCCALL M.D. CLIA NUMBER [id number] CAP ACCREDITATION N O. [id number] HEMOGLOBIN [id number] 02:44:08 Test Item Value Reference Range Interpretation Comments HEMOGLOBIN A1c (test 7.0 % 4.2-5.6 H [employer] DIABETES code = 79658) ASSOCIATION [employer] FOR HGB A1C: PREDIABETES/INC REASED [...] Interpretation Comments HEMOGLOBIN A1c (test code = 73945) 7.0 % HEMOGLOBIN A1c [ADDED]2021-05-16 00:00:00 Test Item Value Reference Range Interpretation Comments HEMOGLOBIN A1c (test code = 61825) 7.0 % HEMOGLOBIN A1c [ADDED]2021-05-16 00:00:00 Test Item Value Reference Range Interpretation Comments HEMOGLOBIN A1c (test code = 15385) 7.0 % TSH, THIRD GENERATION [ADDED]2021-05-16 00:00:00 [...] Interpretation Comments HEMOGLOBIN A1c (test code = 52644) 7.0 % HEMOGLOBIN A1c [ADDED]2021-05-16 00:00:00 Test Item Value Reference Range Interpretation Comments HEMOGLOBIN A1c (test code = 61846) 7.0 % HEMOGLOBIN A1c [ADDED]2021-05-16 00:00:00 Test Item Value Reference Range Interpretation Comments HEMOGLOBIN A1c (test code = 21039) 7.0 % TSH, THIRD GENERATION [ADDED]2021-05-16 00:00:00 [...] Interpretation Comments HEMOGLOBIN A1c (test code = 27477) 7.0 % HEMOGLOBIN A1c [ADDED]2021-05-16 00:00:00 Test Item Value Reference Range Interpretation Comments HEMOGLOBIN A1c (test code = 97825) 7.0 % HEMOGLOBIN A1c [ADDED]2021-05-16 00:00:00 Test Item Value Reference Range Interpretation Comments HEMOGLOBIN A1c (test code = 48875) 7.0 % HEMOGLOBIN A1c [ADDED]2021-05-16 00:00:00 Test Item Value Reference Range Interpretation Comments HEMOGLOBIN A1c (test code = 35651) 7.0 % HEMOGLOBIN A1c [ADDED]2021-05-16 00:00:00 Test Item Value Reference Range Interpretation Comments HEMOGLOBIN A1c (test code = 37787) 7.0 % TSH, THIRD GENERATION [ADDED]2021-05-16 00:00:00 [...] Interpretation Comments HEMOGLOBIN A1c (test code = 68186) 7.0 % HEMOGLOBIN A1c [ADDED]2021-05-16 00:00:00 Test Item Value Reference Range Interpretation Comments HEMOGLOBIN A1c (test code = 45290) 7.0 % HEMOGLOBIN A1c [ADDED]2021-05-16 00:00:00 Test Item Value Reference Range Interpretation Comments HEMOGLOBIN A1c (test code = 82829) 7.0 % TSH, THIRD GENERATION [ADDED]2021-05-16 00:00:00 [...] Interpretation Comments HEMOGLOBIN A1c (test code = 70187) 7.0 % HEMOGLOBIN A1c [ADDED]2021-05-16 00:00:00 Test Item Value Reference Range Interpretation Comments HEMOGLOBIN A1c (test code = 47493) 7.0 % HEMOGLOBIN A1c [ADDED]2021-05-16 00:00:00 Test Item Value Reference Range Interpretation Comments HEMOGLOBIN A1c (test code = 47851) 7.0 % TSH, THIRD GENERATION [ADDED]2021-05-16 00:00:00 [...] Interpretation Comments HEMOGLOBIN A1c (test code = 19214) 7.0 % HEMOGLOBIN A1c [ADDED]2021-05-16 00:00:00 Test Item Value Reference Range Interpretation Comments HEMOGLOBIN A1c (test code = 92565) 7.0 % HEMOGLOBIN A1c [ADDED]2021-05-16 00:00:00 Test Item Value Reference Range Interpretation Comments HEMOGLOBIN A1c (test code = 58142) 7.0 % TSH, THIRD GENERATION [ADDED]2021-05-16 00:00:00 [...] Interpretation Comments HEMOGLOBIN A1c (test code = 33078) 7.0 % HEMOGLOBIN A1c [ADDED]2021-05-16 00:00:00 Test Item Value Reference Range Interpretation Comments HEMOGLOBIN A1c (test code = 06253) 7.0 % HEMOGLOBIN A1c [ADDED]2021-05-16 00:00:00 Test Item Value Reference Range Interpretation Comments HEMOGLOBIN A1c (test code = 94205) 7.0 % TSH, THIRD GENERATION [ADDED]2021-05-16 00:00:00 [...] 33.700 UIU/ML code = 2821) CBC W/AUTO [id number] 00:00:00 Test Item Value Reference Range Interpretation [...] NUCLEATED RBCS (test code = 0.00 K/UL 99743) CBC W/AUTO [id number] 00:00:00 Test Item Value Reference Range Interpretation [...] NUCLEATED RBCS (test code = 0.00 K/UL 78455) CBC W/AUTO [id number] 00:00:00 Test Item Value Reference Range Interpretation [...] NUCLEATED RBCS (test code = 0.00 K/UL 51106) COMPREHENSIVE METABOLIC [id number] 00:00:00 Test Item Value Reference Range Interpretation Comments GLUCOSE (test code = 2217) 317 MG/DL BUN (test code = 2208) 41 MG/DL CREATININE (test code = 2214) 6.82 MG/DL eGFR (2020 CKD-EPI) (test code 8 ML/MIN/1.73 = 06850) CALC BUN/CREAT (test code = 6 RATIO [...] code = 2219) 22 U/L COMPREHENSIVE METABOLIC [id number] 00:00:00 Test Item Value Reference Range Interpretation Comments GLUCOSE (test code = 2217) 317 MG/DL BUN (test code = 2208) 41 MG/DL CREATININE (test code = 2214) 6.82 MG/DL eGFR (2020 CKD-EPI) (test code 8 ML/MIN/1.73 = 42554) CALC BUN/CREAT (test code = 6 RATIO [...] code = 2219) 22 U/L CBC W/AUTO [id number] 00:00:00 Test Item Value Reference Range Interpretation [...] NUCLEATED RBCS (test code = 0.00 K/UL 91663) CBC W/AUTO [id number] 00:00:00 Test Item Value Reference Range Interpretation [...] NUCLEATED RBCS (test code = 0.00 K/UL 70812) CBC W/AUTO [id number] 00:00:00 Test Item Value Reference Range Interpretation [...] NUCLEATED RBCS (test code = 0.00 K/UL 71648) COMPREHENSIVE METABOLIC [id number] 00:00:00 Test Item Value Reference Range Interpretation Comments GLUCOSE (test code = 2217) 317 MG/DL BUN (test code = 2208) 41 MG/DL CREATININE (test code = 2214) 6.82 MG/DL eGFR (2020 CKD-EPI) (test code 8 ML/MIN/1.73 = 44183) CALC BUN/CREAT (test code = 6 RATIO [...] code = 2219) 22 U/L COMPREHENSIVE METABOLIC [id number] 00:00:00 Test Item Value Reference Range Interpretation [...] code = 2219) 22 U/L CBC W/AUTO [id number] 00:00:00 Test Item Value Reference Range Interpretation [...] NUCLEATED RBCS (test code = 0.00 K/UL 60176) CBC W/AUTO [id number] 00:00:00 Test Item Value Reference Range Interpretation [...] NUCLEATED RBCS (test code = 0.00 K/UL 84119) CBC W/AUTO [id number] 00:00:00 Test Item Value Reference Range Interpretation [...] NUCLEATED RBCS (test code = 0.00 K/UL 42443) CBC W/AUTO [id number] 00:00:00 Test Item Value Reference Range Interpretation [...] NUCLEATED RBCS (test code = 0.00 K/UL 22357) CBC W/AUTO [id number] 00:00:00 Test Item Value Reference Range Interpretation [...] NUCLEATED RBCS (test code = 0.00 K/UL 81747) COMPREHENSIVE METABOLIC [id number] 00:00:00 Test Item Value Reference Range Interpretation Comments GLUCOSE (test code = 2217) 317 MG/DL BUN (test code = 2208) 41 MG/DL CREATININE (test code = 2214) 6.82 MG/DL eGFR (2020 CKD-EPI) (test code 8 ML/MIN/1.73 = 56723) CALC BUN/CREAT (test code = 6 RATIO [...] code = 2219) 22 U/L COMPREHENSIVE METABOLIC [id number] 00:00:00 Test Item Value Reference Range Interpretation Comments GLUCOSE (test code = 2217) 317 MG/DL BUN (test code = 2208) 41 MG/DL CREATININE (test code = 2214) 6.82 MG/DL eGFR (2020 CKD-EPI) (test code 8 ML/MIN/1.73 = 46445) CALC BUN/CREAT (test code = 6 RATIO [...] code = 2219) 22 U/L COMPREHENSIVE METABOLIC [id number] 00:00:00 Test Item Value Reference Range Interpretation Comments GLUCOSE (test code = 2217) 317 MG/DL BUN (test code = 2208) 41 MG/DL CREATININE (test code = 2214) 6.82 MG/DL eGFR (2020 CKD-EPI) (test code 8 ML/MIN/1.73 = 10716) CALC BUN/CREAT (test code = 6 RATIO [...] code = 2219) 22 U/L CBC W/AUTO [id number] 00:00:00 Test Item Value Reference Range Interpretation [...] NUCLEATED RBCS (test code = 0.00 K/UL 11811) CBC W/AUTO [id number] 00:00:00 Test Item Value Reference Range Interpretation [...] NUCLEATED RBCS (test code = 0.00 K/UL 01373) CBC W/AUTO [id number] 00:00:00 Test Item Value Reference Range Interpretation [...] NUCLEATED RBCS (test code = 0.00 K/UL 05964) COMPREHENSIVE METABOLIC [id number] 00:00:00 Test Item Value Reference Range Interpretation Comments GLUCOSE (test code = 2217) 317 MG/DL BUN (test code = 2208) 41 MG/DL CREATININE (test code = 2214) 6.82 MG/DL eGFR (2020 CKD-EPI) (test code 8 ML/MIN/1.73 = 82300) CALC BUN/CREAT (test code = 6 RATIO [...] code = 2219) 22 U/L COMPREHENSIVE METABOLIC [id number] 00:00:00 Test Item Value Reference Range Interpretation Comments GLUCOSE (test code = 2217) 317 MG/DL BUN (test code = 2208) 41 MG/DL CREATININE (test code = 2214) 6.82 MG/DL eGFR (2020 CKD-EPI) (test code 8 ML/MIN/1.73 = 88715) CALC BUN/CREAT (test code = 6 RATIO [...] code = 2219) 22 U/L CBC W/AUTO [id number] 00:00:00 Test Item Value Reference Range Interpretation [...] NUCLEATED RBCS (test code = 0.00 K/UL 08196) CBC W/AUTO [id number] 00:00:00 Test Item Value Reference Range Interpretation [...] NUCLEATED RBCS (test code = 0.00 K/UL 69434) CBC W/AUTO [id number] 00:00:00 Test Item Value Reference Range Interpretation [...] NUCLEATED RBCS (test code = 0.00 K/UL 24938) COMPREHENSIVE METABOLIC [id number] 00:00:00 Test Item Value Reference Range Interpretation Comments GLUCOSE (test code = 2217) 317 MG/DL BUN (test code = 2208) 41 MG/DL CREATININE (test code = 2214) 6.82 MG/DL eGFR (2020 CKD-EPI) (test code 8 ML/MIN/1.73 = 55401) CALC BUN/CREAT (test code = 6 RATIO [...] code = 2219) 22 U/L COMPREHENSIVE METABOLIC [id number] 00:00:00 Test Item Value Reference Range Interpretation Comments GLUCOSE (test code = 2217) 317 MG/DL BUN (test code = 2208) 41 MG/DL CREATININE (test code = 2214) 6.82 MG/DL eGFR (2020 CKD-EPI) (test code 8 ML/MIN/1.73 = 78637) CALC BUN/CREAT (test code = 6 RATIO [...] code = 2219) 22 U/L CBC W/AUTO [id number] 00:00:00 Test Item Value Reference Range Interpretation [...] NUCLEATED RBCS (test code = 0.00 K/UL 96329) CBC W/AUTO [id number] 00:00:00 Test Item Value Reference Range Interpretation [...] NUCLEATED RBCS (test code = 0.00 K/UL 48533) CBC W/AUTO [id number] 00:00:00 Test Item Value Reference Range Interpretation [...] NUCLEATED RBCS (test code = 0.00 K/UL 51323) COMPREHENSIVE METABOLIC [id number] 00:00:00 Test Item Value Reference Range Interpretation Comments GLUCOSE (test code = 2217) 317 MG/DL BUN (test code = 2208) 41 MG/DL CREATININE (test code = 2214) 6.82 MG/DL eGFR (2020 CKD-EPI) (test code 8 ML/MIN/1.73 = 39801) CALC BUN/CREAT (test code = 6 RATIO [...] code = 2219) 22 U/L COMPREHENSIVE METABOLIC [id number] 00:00:00 Test Item Value Reference Range Interpretation Comments GLUCOSE (test code = 2217) 317 MG/DL BUN (test code = 2208) 41 MG/DL CREATININE (test code = 2214) 6.82 MG/DL eGFR (2020 CKD-EPI) (test code 8 ML/MIN/1.73 = 78809) CALC BUN/CREAT (test code = 6 RATIO [...] code = 2219) 22 U/L CBC W/AUTO [id number] 00:00:00 Test Item Value Reference Range Interpretation [...] NUCLEATED RBCS (test code = 0.00 K/UL 85908) CBC W/AUTO [id number] 00:00:00 Test Item Value Reference Range Interpretation [...] NUCLEATED RBCS (test code = 0.00 K/UL 58153) CBC W/AUTO [id number] 00:00:00 Test Item Value Reference Range Interpretation [...] NUCLEATED RBCS (test code = 0.00 K/UL 45315) COMPREHENSIVE METABOLIC [id number] 00:00:00 Test Item Value Reference Range Interpretation Comments GLUCOSE (test code = 2217) 317 MG/DL BUN (test code = 2208) 41 MG/DL CREATININE (test code = 2214) 6.82 MG/DL eGFR (2020 CKD-EPI) (test code 8 ML/MIN/1.73 = 24022) CALC BUN/CREAT (test code = 6 RATIO [...] code = 2219) 22 U/L COMPREHENSIVE METABOLIC [id number] 00:00:00 Test Item Value Reference Range Interpretation Comments GLUCOSE (test code = 2217) 317 MG/DL BUN (test code = 2208) 41 MG/DL CREATININE (test code = 2214) 6.82 MG/DL eGFR (2020 CKD-EPI) (test code 8 ML/MIN/1.73 = 87182) CALC BUN/CREAT (test code = 6 RATIO [...] ALT (test code = 2219) 22 U/L [id number] 00:00:00 Test Item Value Reference Range Interpretation Comments AMYLASE (test code = 2205) 168 U/L [id number] 00:00:00 Test Item Value Reference Range Interpretation Comments AMYLASE (test code = 2205) 168 U/L [id number] 00:00:00 Test Item Value Reference Range Interpretation Comments LIPASE (test code = 2057) 116 U/L [id number] 00:00:00 Test Item Value Reference Range Interpretation Comments LIPASE (test code = 2057) 116 U/L [id number] 00:00:00 Test Item Value Reference Range Interpretation Comments LIPASE (test code = 2057) 116 U/L [id number] 00:00:00 Test Item Value Reference Range Interpretation Comments AMYLASE (test code = 2205) 168 U/L [id number] 00:00:00 Test Item Value Reference Range Interpretation Comments AMYLASE (test code = 2205) 168 U/L [id number] 00:00:00 Test Item Value Reference Range Interpretation Comments LIPASE (test code = 2057) 116 U/L [id number] 00:00:00 Test Item Value Reference Range Interpretation Comments LIPASE (test code = 2057) 116 U/L [id number] 00:00:00 Test Item Value Reference Range Interpretation Comments LIPASE (test code = 2057) 116 U/L [id number] 00:00:00 Test Item Value Reference Range Interpretation Comments AMYLASE (test code = 2205) 168 U/L [id number] 00:00:00 Test Item Value Reference Range Interpretation Comments AMYLASE (test code = 2205) 168 U/L [id number] 00:00:00 Test Item Value Reference Range Interpretation Comments AMYLASE (test code = 2205) 168 U/L [id number] 00:00:00 Test Item Value Reference Range Interpretation Comments LIPASE (test code = 2057) 116 U/L [id number] 00:00:00 Test Item Value Reference Range Interpretation Comments LIPASE (test code = 2057) 116 U/L [id number] 00:00:00 Test Item Value Reference Range Interpretation Comments LIPASE (test code = 2057) 116 U/L [id number] 00:00:00 Test Item Value Reference Range Interpretation Comments LIPASE (test code = 2057) 116 U/L [id number] 00:00:00 Test Item Value Reference Range Interpretation Comments LIPASE (test code = 2057) 116 U/L [id number] 00:00:00 Test Item Value Reference Range Interpretation Comments AMYLASE (test code = 2205) 168 U/L [id number] 00:00:00 Test Item Value Reference Range Interpretation Comments AMYLASE (test code = 5) 168 U/L [id number] 00:00:00 Test Item Value Reference Range Interpretation Comments LIPASE (test code = 2057) 116 U/L [id number] 00:00:00 Test Item Value Reference Range Interpretation Comments LIPASE (test code = 2057) 116 U/L [id number] 00:00:00 Test Item Value Reference Range Interpretation Comments LIPASE (test code = 2057) 116 U/L [id number] 00:00:00 Test Item Value Reference Range Interpretation Comments AMYLASE (test code = 5) 168 U/L [id number] 00:00:00 Test Item Value Reference Range Interpretation Comments AMYLASE (test code = 5) 168 U/L [id number] 00:00:00 Test Item Value Reference Range Interpretation Comments LIPASE (test code = 2057) 116 U/L [id number] 00:00:00 Test Item Value Reference Range Interpretation Comments LIPASE (test code = 2057) 116 U/L [id number] 00:00:00 Test Item Value Reference Range Interpretation Comments LIPASE (test code = 2057) 116 U/L [id number] 00:00:00 Test Item Value Reference Range Interpretation Comments AMYLASE (test code = 5) 168 U/L [id number] 00:00:00 Test Item Value Reference Range Interpretation Comments AMYLASE (test code = 5) 168 U/L [id number] 00:00:00 Test Item Value Reference Range Interpretation Comments LIPASE (test code = 2057) 116 U/L [id number] 00:00:00 Test Item Value Reference Range Interpretation Comments LIPASE (test code = 2057) 116 U/L [id number] 00:00:00 Test Item Value Reference Range Interpretation Comments LIPASE (test code = 2057) 116 U/L [id number] 00:00:00 Test Item Value Reference Range Interpretation Comments AMYLASE (test code = 2205) 168 U/L [id number] 00:00:00 Test Item Value Reference Range Interpretation Comments AMYLASE (test code = 2205) 168 U/L [id number] 00:00:00 Test Item Value Reference Range Interpretation Comments LIPASE (test code = 8) 116 U/L [id number] 00:00:00 Test Item Value Reference Range Interpretation Comments LIPASE (test code = 2058) 116 U/L [id number] 00:00:00 Test Item Value Reference Range Interpretation Comments LIPASE (test code = 2058) 116 U/L [id number] 00:00:00 Test Item Value Reference Range Interpretation Comments TSH, THIRD GENERATION (test >100.000 UIU/ML code = 2821) [id number] 00:00:00 Test Item Value Reference Range Interpretation Comments TSH, THIRD GENERATION (test >100.000 UIU/ML code = 2821) [id number] 00:00:00 Test Item Value Reference Range Interpretation Comments TSH, THIRD GENERATION (test >100.000 UIU/ML code = 2821) LIPID [id number] 00:00:00 Test Item Value Reference Range Interpretation Comments CHOLESTEROL (test code = 2210) 308 MG/DL TRIGLYCERIDES (test code = 2232) 280 MG/DL HDL CHOLESTEROL (test code = 2220) 66 MG/DL CALC LDL CHOL (test code = 2237) 192 MG/DL RISK RATIO LDL/HDL (test code = 2.91 RATIO 2238) LIPID [id number] 00:00:00 Test Item Value Reference Range Interpretation Comments CHOLESTEROL (test code = 2210) 308 MG/DL TRIGLYCERIDES (test code = 2232) 280 MG/DL HDL CHOLESTEROL (test code = 2220) 66 MG/DL CALC LDL CHOL (test code = 2237) 192 MG/DL RISK RATIO LDL/HDL (test code = 2.91 RATIO 2238) CBC W/AUTO [id number] 00:00:00 Test Item Value Reference Range Interpretation [...] NUCLEATED RBCS (test code = 0.00 K/UL 93711) CBC W/AUTO [id number] 00:00:00 Test Item Value Reference Range Interpretation [...] NUCLEATED RBCS (test code = 0.00 K/UL 96725) CBC W/AUTO [id number] 00:00:00 Test Item Value Reference Range Interpretation [...] NUCLEATED RBCS (test code = 0.00 K/UL 46098) COMPREHENSIVE METABOLIC [id number] 00:00:00 Test Item Value Reference Range Interpretation Comments GLUCOSE (test code = 2217) 137 MG/DL BUN (test code = 2208) 56 MG/DL CREATININE (test code = 2214) 10.21 MG/DL eGFR AMER. (test code = 6 ML/MIN/1.73 74934) eGFR NON- AMER. (test 5 ML/MIN/1.73 code = 41050) CALC BUN/CREAT (test code = 5 RATIO [...] code = 2219) 16 U/L COMPREHENSIVE METABOLIC [id number] 00:00:00 Test Item Value Reference Range Interpretation Comments GLUCOSE (test code = 2217) 137 MG/DL BUN (test code = 2208) 56 MG/DL CREATININE (test code = 2214) 10.21 MG/DL eGFR AMER. (test code = 6 ML/MIN/1.73 60302) eGFR NON- AMER. (test 5 ML/MIN/1.73 code = 62510) CALC BUN/CREAT (test code = 5 RATIO [...] ALT (test code = 2219) 16 U/L [id number] 00:00:00 Test Item Value Reference Range Interpretation Comments TSH, THIRD GENERATION (test >100.000 UIU/ML code = 2821) [id number] 00:00:00 Test Item Value Reference Range Interpretation Comments TSH, THIRD GENERATION (test >100.000 UIU/ML code = 2821) [id number] 00:00:00 Test Item Value Reference Range Interpretation Comments TSH, THIRD GENERATION (test >100.000 UIU/ML code = 2821) LIPID [id number] 00:00:00 Test Item Value Reference Range Interpretation Comments CHOLESTEROL (test code = 2210) 308 MG/DL TRIGLYCERIDES (test code = 2232) 280 MG/DL HDL CHOLESTEROL (test code = 2220) 66 MG/DL CALC LDL CHOL (test code = 2237) 192 MG/DL RISK RATIO LDL/HDL (test code = 2.91 RATIO 2238) LIPID [id number] 00:00:00 Test Item Value Reference Range Interpretation Comments CHOLESTEROL (test code = 2210) 308 MG/DL TRIGLYCERIDES (test code = 2232) 280 MG/DL HDL CHOLESTEROL (test code = 2220) 66 MG/DL CALC LDL CHOL (test code = 2237) 192 MG/DL RISK RATIO LDL/HDL (test code = 2.91 RATIO 2238) CBC W/AUTO [id number] 00:00:00 Test Item Value Reference Range Interpretation [...] NUCLEATED RBCS (test code = 0.00 K/UL 48539) CBC W/AUTO [id number] 00:00:00 Test Item Value Reference Range Interpretation [...] NUCLEATED RBCS (test code = 0.00 K/UL 66646) CBC W/AUTO [id number] 00:00:00 Test Item Value Reference Range Interpretation [...] NUCLEATED RBCS (test code = 0.00 K/UL 31933) COMPREHENSIVE METABOLIC [id number] 00:00:00 Test Item Value Reference Range Interpretation Comments GLUCOSE (test code = 2217) 137 MG/DL BUN (test code = 2208) 56 MG/DL CREATININE (test code = 2214) 10.21 MG/DL eGFR AMER. (test code = 6 ML/MIN/1.73 24177) eGFR NON- AMER. (test 5 ML/MIN/1.73 code = 98327) CALC BUN/CREAT (test code = 5 RATIO [...] code = 2219) 16 U/L COMPREHENSIVE METABOLIC [id number] 00:00:00 Test Item Value Reference Range Interpretation Comments GLUCOSE (test code = 2217) 137 MG/DL BUN (test code = 2208) 56 MG/DL CREATININE (test code = 2214) 10.21 MG/DL eGFR AMER. (test code = 6 ML/MIN/1.73 34686) eGFR NON- AMER. (test 5 ML/MIN/1.73 code = 23299) CALC BUN/CREAT (test code = 5 RATIO [...] ALT (test code = 2219) 16 U/L [id number] 00:00:00 Test Item Value Reference Range Interpretation Comments TSH, THIRD GENERATION (test >100.000 UIU/ML code = 2821) [id number] 00:00:00 Test Item Value Reference Range Interpretation Comments TSH, THIRD GENERATION (test >100.000 UIU/ML code = 2821) [id number] 00:00:00 Test Item Value Reference Range Interpretation Comments TSH, THIRD GENERATION (test >100.000 UIU/ML code = 2821) [id number] 00:00:00 Test Item Value Reference Range Interpretation Comments TSH, THIRD GENERATION (test >100.000 UIU/ML code = 2821) [id number] 00:00:00 Test Item Value Reference Range Interpretation Comments TSH, THIRD GENERATION (test >100.000 UIU/ML code = 2821) LIPID [id number] 00:00:00 Test Item Value Reference Range Interpretation Comments CHOLESTEROL (test code = 2210) 308 MG/DL TRIGLYCERIDES (test code = 2232) 280 MG/DL HDL CHOLESTEROL (test code = 2220) 66 MG/DL CALC LDL CHOL (test code = 2237) 192 MG/DL RISK RATIO LDL/HDL (test code = 2.91 RATIO 2238) LIPID [id number] 00:00:00 Test Item Value Reference Range Interpretation Comments CHOLESTEROL (test code = 2210) 308 MG/DL TRIGLYCERIDES (test code = 2232) 280 MG/DL HDL CHOLESTEROL (test code = 2220) 66 MG/DL CALC LDL CHOL (test code = 2237) 192 MG/DL RISK RATIO LDL/HDL (test code = 2.91 RATIO 2238) CBC W/AUTO [id number] 00:00:00 Test Item Value Reference Range Interpretation [...] NUCLEATED RBCS (test code = 0.00 K/UL 85103) CBC W/AUTO [id number] 00:00:00 Test Item Value Reference Range Interpretation [...] NUCLEATED RBCS (test code = 0.00 K/UL 20749) CBC W/AUTO [id number] 00:00:00 Test Item Value Reference Range Interpretation [...] NUCLEATED RBCS (test code = 0.00 K/UL 44117) COMPREHENSIVE METABOLIC [id number] 00:00:00 Test Item Value Reference Range Interpretation Comments GLUCOSE (test code = 2217) 137 MG/DL BUN (test code = 2208) 56 MG/DL CREATININE (test code = 2214) 10.21 MG/DL eGFR AMER. (test code = 6 ML/MIN/1.73 55899) eGFR NON- AMER. (test 5 ML/MIN/1.73 code = 59919) CALC BUN/CREAT (test code = 5 RATIO [...] code = 2219) 16 U/L COMPREHENSIVE METABOLIC [id number] 00:00:00 Test Item Value Reference Range Interpretation Comments GLUCOSE (test code = 2217) 137 MG/DL BUN (test code = 2208) 56 MG/DL CREATININE (test code = 2214) 10.21 MG/DL eGFR AMER. (test code = 6 ML/MIN/1.73 43820) eGFR NON- AMER. (test 5 ML/MIN/1.73 code = 06723) CALC BUN/CREAT (test code = 5 RATIO [...] (test code = 2219) 16 U/L LIPID [id number] 00:00:00 Test Item Value Reference Range Interpretation Comments CHOLESTEROL (test code = 2210) 308 MG/DL TRIGLYCERIDES (test code = 2232) 280 MG/DL HDL CHOLESTEROL (test code = 2220) 66 MG/DL CALC LDL CHOL (test code = 2237) 192 MG/DL RISK RATIO LDL/HDL (test code = 2.91 RATIO 2238) CBC W/AUTO [id number] 00:00:00 Test Item Value Reference Range Interpretation [...] NUCLEATED RBCS (test code = 0.00 K/UL 38309) CBC W/AUTO [id number] 00:00:00 Test Item Value Reference Range Interpretation [...] NUCLEATED RBCS (test code = 0.00 K/UL 57372) COMPREHENSIVE METABOLIC [id number] 00:00:00 Test Item Value Reference Range Interpretation Comments GLUCOSE (test code = 2217) 137 MG/DL BUN (test code = 2208) 56 MG/DL CREATININE (test code = 2214) 10.21 MG/DL eGFR AMER. (test code = 6 ML/MIN/1.73 16471) eGFR NON- AMER. (test 5 ML/MIN/1.73 code = 54241) CALC BUN/CREAT (test code = 5 RATIO [...] ALT (test code = 2219) 16 U/L [id number] 00:00:00 Test Item Value Reference Range Interpretation Comments TSH, THIRD GENERATION (test >100.000 UIU/ML code = 2821) [id number] 00:00:00 Test Item Value Reference Range Interpretation Comments TSH, THIRD GENERATION (test >100.000 UIU/ML code = 2821) [id number] 00:00:00 Test Item Value Reference Range Interpretation Comments TSH, THIRD GENERATION (test >100.000 UIU/ML code = 2821) LIPID [id number] 00:00:00 Test Item Value Reference Range Interpretation Comments CHOLESTEROL (test code = 2210) 308 MG/DL TRIGLYCERIDES (test code = 2232) 280 MG/DL HDL CHOLESTEROL (test code = 2220) 66 MG/DL CALC LDL CHOL (test code = 2237) 192 MG/DL RISK RATIO LDL/HDL (test code = 2.91 RATIO 2238) LIPID [id number] 00:00:00 Test Item Value Reference Range Interpretation Comments CHOLESTEROL (test code = 2210) 308 MG/DL TRIGLYCERIDES (test code = 2232) 280 MG/DL HDL CHOLESTEROL (test code = 2220) 66 MG/DL CALC LDL CHOL (test code = 2237) 192 MG/DL RISK RATIO LDL/HDL (test code = 2.91 RATIO 2238) CBC W/AUTO [id number] 00:00:00 Test Item Value Reference Range Interpretation [...] NUCLEATED RBCS (test code = 0.00 K/UL 57335) CBC W/AUTO [id number] 00:00:00 Test Item Value Reference Range Interpretation [...] NUCLEATED RBCS (test code = 0.00 K/UL 44715) CBC W/AUTO [id number] 00:00:00 Test Item Value Reference Range Interpretation [...] NUCLEATED RBCS (test code = 0.00 K/UL 35589) COMPREHENSIVE METABOLIC [id number] 00:00:00 Test Item Value Reference Range Interpretation Comments GLUCOSE (test code = 2217) 137 MG/DL BUN (test code = 2208) 56 MG/DL CREATININE (test code = 2214) 10.21 MG/DL eGFR AMER. (test code = 6 ML/MIN/1.73 45516) eGFR NON- AMER. (test 5 ML/MIN/1.73 code = 42609) CALC BUN/CREAT (test code = 5 RATIO [...] code = 2219) 16 U/L COMPREHENSIVE METABOLIC [id number] 00:00:00 Test Item Value Reference Range Interpretation Comments GLUCOSE (test code = 2217) 137 MG/DL BUN (test code = 2208) 56 MG/DL CREATININE (test code = 2214) 10.21 MG/DL eGFR AMER. (test code = 6 ML/MIN/1.73 97364) eGFR NON- AMER. (test 5 ML/MIN/1.73 code = 89298) CALC BUN/CREAT (test code = 5 RATIO [...] ALT (test code = 2219) 16 U/L [id number] 00:00:00 Test Item Value Reference Range Interpretation Comments TSH, THIRD GENERATION (test >100.000 UIU/ML code = 2821) [id number] 00:00:00 Test Item Value Reference Range Interpretation Comments TSH, THIRD GENERATION (test >100.000 UIU/ML code = 2821) [id number] 00:00:00 Test Item Value Reference Range Interpretation Comments TSH, THIRD GENERATION (test >100.000 UIU/ML code = 2821) LIPID [id number] 00:00:00 Test Item Value Reference Range Interpretation Comments CHOLESTEROL (test code = 2210) 308 MG/DL TRIGLYCERIDES (test code = 2232) 280 MG/DL HDL CHOLESTEROL (test code = 2220) 66 MG/DL CALC LDL CHOL (test code = 2237) 192 MG/DL RISK RATIO LDL/HDL (test code = 2.91 RATIO 2238) LIPID [id number] 00:00:00 Test Item Value Reference Range Interpretation Comments CHOLESTEROL (test code = 2210) 308 MG/DL TRIGLYCERIDES (test code = 2232) 280 MG/DL HDL CHOLESTEROL (test code = 2220) 66 MG/DL CALC LDL CHOL (test code = 2237) 192 MG/DL RISK RATIO LDL/HDL (test code = 2.91 RATIO 2238) CBC W/AUTO [id number] 00:00:00 Test Item Value Reference Range Interpretation [...] NUCLEATED RBCS (test code = 0.00 K/UL 20688) CBC W/AUTO [id number] 00:00:00 Test Item Value Reference Range Interpretation [...] NUCLEATED RBCS (test code = 0.00 K/UL 97493) CBC W/AUTO [id number] 00:00:00 Test Item Value Reference Range Interpretation [...] NUCLEATED RBCS (test code = 0.00 K/UL 71846) COMPREHENSIVE METABOLIC [id number] 00:00:00 Test Item Value Reference Range Interpretation Comments GLUCOSE (test code = 2217) 137 MG/DL BUN (test code = 2208) 56 MG/DL CREATININE (test code = 2214) 10.21 MG/DL eGFR AMER. (test code = 6 ML/MIN/1.73 62780) eGFR NON- AMER. (test 5 ML/MIN/1.73 code = 85943) CALC BUN/CREAT (test code = 5 RATIO [...] code = 2219) 16 U/L COMPREHENSIVE METABOLIC [id number] 00:00:00 Test Item Value Reference Range Interpretation Comments GLUCOSE (test code = 2217) 137 MG/DL BUN (test code = 2208) 56 MG/DL CREATININE (test code = 2214) 10.21 MG/DL eGFR AMER. (test code = 6 ML/MIN/1.73 21149) eGFR NON- AMER. (test 5 ML/MIN/1.73 code = 42256) CALC BUN/CREAT (test code = 5 RATIO [...] U/L = 2203) AST (test code = 221) 13 U/L ALT (test code = 221) 16 U/L [id number] 00:00:00 Test Item Value Reference Range Interpretation Comments TSH, THIRD GENERATION (test >100.000 UIU/ML code = 2821) [id number] 00:00:00 Test Item Value Reference Range Interpretation Comments TSH, THIRD GENERATION (test >100.000 UIU/ML code = 2821) [id number] 00:00:00 Test Item Value Reference Range Interpretation Comments TSH, THIRD GENERATION (test >100.000 UIU/ML code = 2821) LIPID [id number] 00:00:00 Test Item Value Reference Range Interpretation Comments CHOLESTEROL (test code = 2210) 308 MG/DL TRIGLYCERIDES (test code = 2232) 280 MG/DL HDL CHOLESTEROL (test code = 2220) 66 MG/DL CALC LDL CHOL (test code = 2237) 192 MG/DL RISK RATIO LDL/HDL (test code = 2.91 RATIO 2238) LIPID [id number] 00:00:00 Test Item Value Reference Range Interpretation Comments CHOLESTEROL (test code = 2210) 308 MG/DL TRIGLYCERIDES (test code = 2232) 280 MG/DL HDL CHOLESTEROL (test code = 2220) 66 MG/DL CALC LDL CHOL (test code = 2237) 192 MG/DL RISK RATIO LDL/HDL (test code = 2.91 RATIO 2238) CBC W/AUTO [id number] 00:00:00 Test Item Value Reference Range Interpretation [...] NUCLEATED RBCS (test code = 0.00 K/UL 49159) CBC W/AUTO [id number] 00:00:00 Test Item Value Reference Range Interpretation [...] NUCLEATED RBCS (test code = 0.00 K/UL 76435) CBC W/AUTO [id number] 00:00:00 Test Item Value Reference Range Interpretation [...] NUCLEATED RBCS (test code = 0.00 K/UL 54277) COMPREHENSIVE METABOLIC [id number] 00:00:00 Test Item Value Reference Range Interpretation Comments GLUCOSE (test code = 2217) 137 MG/DL BUN (test code = 2208) 56 MG/DL CREATININE (test code = 2214) 10.21 MG/DL eGFR AMER. (test code = 6 ML/MIN/1.73 27616) eGFR NON- AMER. (test 5 ML/MIN/1.73 code = 95202) CALC BUN/CREAT (test code = 5 RATIO [...] code = 2219) 16 U/L COMPREHENSIVE METABOLIC [id number] 00:00:00 Test Item Value Reference Range Interpretation Comments GLUCOSE (test code = 2217) 137 MG/DL BUN (test code = 2208) 56 MG/DL CREATININE (test code = 2214) 10.21 MG/DL eGFR AMER. (test code = 6 ML/MIN/1.73 52394) eGFR NON- AMER. (test 5 ML/MIN/1.73 code = 82384) CALC BUN/CREAT (test code = 5 RATIO [...] ALT (test code = 2219) 16 U/L [id number] 00:00:00 Test Item Value Reference Range Interpretation Comments TSH, THIRD GENERATION (test >100.000 UIU/ML code = 2821) [id number] 00:00:00 Test Item Value Reference Range Interpretation Comments TSH, THIRD GENERATION (test >100.000 UIU/ML code = 2821) [id number] 00:00:00 Test Item Value Reference Range Interpretation Comments TSH, THIRD GENERATION (test >100.000 UIU/ML code = 2821) LIPID [id number] 00:00:00 Test Item Value Reference Range Interpretation Comments CHOLESTEROL (test code = 2210) 308 MG/DL TRIGLYCERIDES (test code = 2232) 280 MG/DL HDL CHOLESTEROL (test code = 2220) 66 MG/DL CALC LDL CHOL (test code = 2237) 192 MG/DL RISK RATIO LDL/HDL (test code = 2.91 RATIO 2238) LIPID [id number] 00:00:00 Test Item Value Reference Range Interpretation Comments CHOLESTEROL (test code = 2210) 308 MG/DL TRIGLYCERIDES (test code = 2232) 280 MG/DL HDL CHOLESTEROL (test code = 2220) 66 MG/DL CALC LDL CHOL (test code = 2237) 192 MG/DL RISK RATIO LDL/HDL (test code = 2.91 RATIO 2238) CBC W/AUTO [id number] 00:00:00 Test Item Value Reference Range Interpretation [...] NUCLEATED RBCS (test code = 0.00 K/UL 19017) CBC W/AUTO [id number] 00:00:00 Test Item Value Reference Range Interpretation [...] NUCLEATED RBCS (test code = 0.00 K/UL 31323) CBC W/AUTO [id number] 00:00:00 Test Item Value Reference Range Interpretation [...] NUCLEATED RBCS (test code = 0.00 K/UL 70679) COMPREHENSIVE METABOLIC [id number] 00:00:00 Test Item Value Reference Range Interpretation Comments GLUCOSE (test code = 2217) 137 MG/DL BUN (test code = 2208) 56 MG/DL CREATININE (test code = 2214) 10.21 MG/DL eGFR AMER. (test code = 6 ML/MIN/1.73 05481) eGFR NON- AMER. (test 5 ML/MIN/1.73 code = 18957) CALC BUN/CREAT (test code = 5 RATIO [...] code = 2219) 16 U/L COMPREHENSIVE METABOLIC [id number] 00:00:00 Test Item Value Reference Range Interpretation Comments GLUCOSE (test code = 2217) 137 MG/DL BUN (test code = 2208) 56 MG/DL CREATININE (test code = 2214) 10.21 MG/DL eGFR AMER. (test code = 6 ML/MIN/1.73 41921) eGFR NON- AMER. (test 5 ML/MIN/1.73 code = 10151) CALC BUN/CREAT (test code = 5 RATIO [...] (test code = 2219) 16 U/L HEMOGLOBIN [id number] 00:00:00 Test Item Value Reference Range Interpretation Comments HEMOGLOBIN A1c (test code = 54524) 5.5 % HEMOGLOBIN [id number] 00:00:00 Test Item Value Reference Range Interpretation Comments HEMOGLOBIN A1c (test code = 42102) 5.5 % HEMOGLOBIN [id number] 00:00:00 Test Item Value Reference Range Interpretation Comments HEMOGLOBIN A1c (test code = 33323) 5.5 % [id number] 00:00:00 Test Item Value Reference Range Interpretation Comments TSH, THIRD GENERATION (test >100.000 UIU/ML code = 2821) [id number] 00:00:00 Test Item Value Reference Range Interpretation Comments TSH, THIRD GENERATION (test >100.000 UIU/ML code = 2821) [id number] 00:00:00 Test Item Value Reference Range Interpretation Comments TSH, THIRD GENERATION (test >100.000 UIU/ML code = 2821) HEMOGLOBIN [id number] 00:00:00 Test Item Value Reference Range Interpretation Comments HEMOGLOBIN A1c (test code = 33098) 5.5 % HEMOGLOBIN [id number] 00:00:00 Test Item Value Reference Range Interpretation Comments HEMOGLOBIN A1c (test code = 99359) 5.5 % HEMOGLOBIN [id number] 00:00:00 Test Item Value Reference Range Interpretation Comments HEMOGLOBIN A1c (test code = 76696) 5.5 % [id number] 00:00:00 Test Item Value Reference Range Interpretation Comments TSH, THIRD GENERATION (test >100.000 UIU/ML code = 2821) [id number] 00:00:00 Test Item Value Reference Range Interpretation Comments TSH, THIRD GENERATION (test >100.000 UIU/ML code = 2821) [id number] 00:00:00 Test Item Value Reference Range Interpretation Comments TSH, THIRD GENERATION (test >100.000 UIU/ML code = 2821) HEMOGLOBIN [id number] 00:00:00 Test Item Value Reference Range Interpretation Comments HEMOGLOBIN A1c (test code = 39050) 5.5 % HEMOGLOBIN [id number] 00:00:00 Test Item Value Reference Range Interpretation Comments HEMOGLOBIN A1c (test code = 11754) 5.5 % HEMOGLOBIN [id number] 00:00:00 Test Item Value Reference Range Interpretation Comments HEMOGLOBIN A1c (test code = 04160) 5.5 % HEMOGLOBIN [id number] 00:00:00 Test Item Value Reference Range Interpretation Comments HEMOGLOBIN A1c (test code = 08167) 5.5 % HEMOGLOBIN [id number] 00:00:00 Test Item Value Reference Range Interpretation Comments HEMOGLOBIN A1c (test code = 89229) 5.5 % [id number] 00:00:00 Test Item Value Reference Range Interpretation Comments TSH, THIRD GENERATION (test >100.000 UIU/ML code = 2821) [id number] 00:00:00 Test Item Value Reference Range Interpretation Comments TSH, THIRD GENERATION (test >100.000 UIU/ML code = 2821) [id number] 00:00:00 Test Item Value Reference Range Interpretation Comments TSH, THIRD GENERATION (test >100.000 UIU/ML code = 2821) [id number] 00:00:00 Test Item Value Reference Range Interpretation Comments TSH, THIRD GENERATION (test >100.000 UIU/ML code = 2821) [id number] 00:00:00 Test Item Value Reference Range Interpretation Comments TSH, THIRD GENERATION (test >100.000 UIU/ML code = 2821) HEMOGLOBIN [id number] 00:00:00 Test Item Value Reference Range Interpretation Comments HEMOGLOBIN A1c (test code = 57535) 5.5 % HEMOGLOBIN [id number] 00:00:00 Test Item Value Reference Range Interpretation Comments HEMOGLOBIN A1c (test code = 54845) 5.5 % HEMOGLOBIN [id number] 00:00:00 Test Item Value Reference Range Interpretation Comments HEMOGLOBIN A1c (test code = 79120) 5.5 % [id number] 00:00:00 Test Item Value Reference Range Interpretation Comments TSH, THIRD GENERATION (test >100.000 UIU/ML code = 2821) [id number] 00:00:00 Test Item Value Reference Range Interpretation Comments TSH, THIRD GENERATION (test >100.000 UIU/ML code = 2821) [id number] 00:00:00 Test Item Value Reference Range Interpretation Comments TSH, THIRD GENERATION (test >100.000 UIU/ML code = 2821) HEMOGLOBIN [id number] 00:00:00 Test Item Value Reference Range Interpretation Comments HEMOGLOBIN A1c (test code = 55623) 5.5 % HEMOGLOBIN [id number] 00:00:00 Test Item Value Reference Range Interpretation Comments HEMOGLOBIN A1c (test code = 46571) 5.5 % HEMOGLOBIN [id number] 00:00:00 Test Item Value Reference Range Interpretation Comments HEMOGLOBIN A1c (test code = 88469) 5.5 % [id number] 00:00:00 Test Item Value Reference Range Interpretation Comments TSH, THIRD GENERATION (test >100.000 UIU/ML code = 2821) [id number] 00:00:00 Test Item Value Reference Range Interpretation Comments TSH, THIRD GENERATION (test >100.000 UIU/ML code = 2821) [id number] 00:00:00 Test Item Value Reference Range Interpretation Comments TSH, THIRD GENERATION (test >100.000 UIU/ML code = 2821) HEMOGLOBIN [id number] 00:00:00 Test Item Value Reference Range Interpretation Comments HEMOGLOBIN A1c (test code = 27798) 5.5 % HEMOGLOBIN [id number] 00:00:00 Test Item Value Reference Range Interpretation Comments HEMOGLOBIN A1c (test code = 62778) 5.5 % HEMOGLOBIN [id number] 00:00:00 Test Item Value Reference Range Interpretation Comments HEMOGLOBIN A1c (test code = 28644) 5.5 % [id number] 00:00:00 Test Item Value Reference Range Interpretation Comments TSH, THIRD GENERATION (test >100.000 UIU/ML code = 2821) [id number] 00:00:00 Test Item Value Reference Range Interpretation Comments TSH, THIRD GENERATION (test >100.000 UIU/ML code = 2821) [id number] 00:00:00 Test Item Value Reference Range Interpretation Comments TSH, THIRD GENERATION (test >100.000 UIU/ML code = 2821) HEMOGLOBIN [id number] 00:00:00 Test Item Value Reference Range Interpretation Comments HEMOGLOBIN A1c (test code = 15831) 5.5 % HEMOGLOBIN [id number] 00:00:00 Test Item Value Reference Range Interpretation Comments HEMOGLOBIN A1c (test code = 28809) 5.5 % HEMOGLOBIN [id number] 00:00:00 Test Item Value Reference Range Interpretation Comments HEMOGLOBIN A1c (test code = 47114) 5.5 % [id number] 00:00:00 Test Item Value Reference Range Interpretation Comments TSH, THIRD GENERATION (test >100.000 UIU/ML code = 2821) [id number] 00:00:00 Test Item Value Reference Range Interpretation Comments TSH, THIRD GENERATION (test >100.000 UIU/ML code = 2821) [id number] 00:00:00 Test Item Value Reference Range Interpretation Comments TSH, THIRD GENERATION (test >100.000 UIU/ML code = 2821) CBC W/AUTO [id number] 00:00:00 Test Item Value Reference Range Interpretation [...] code = 1015) 298 K/UL CBC W/AUTO [id number] 00:00:00 Test Item Value Reference Range Interpretation [...] code = 1015) 298 K/UL CBC W/AUTO [id number] 00:00:00 Test Item Value Reference Range Interpretation [...] code = 1015) 298 K/UL COMPREHENSIVE METABOLIC [id number] 00:00:00 Test Item Value Reference Range Interpretation Comments GLUCOSE (test code = 2217) 228 MG/DL BUN (test code = 2208) 23 MG/DL CREATININE (test code = 2214) 5.99 MG/DL eGFR AMER. (test code 11 ML/MIN/1.73 = 58147) eGFR NON- AMER. (test 10 ML/MIN/1.73 code = 06555) CALC BUN/CREAT (test code = 4 RATIO [...] code = 2219) 24 U/L COMPREHENSIVE METABOLIC [id number] 00:00:00 Test Item Value Reference Range Interpretation Comments GLUCOSE (test code = 2217) 228 MG/DL BUN (test code = 2208) 23 MG/DL CREATININE (test code = 2214) 5.99 MG/DL eGFR AMER. (test code 11 ML/MIN/1.73 = 00117) eGFR NON- AMER. (test 10 ML/MIN/1.73 code = 95059) CALC BUN/CREAT (test code = 4 RATIO [...] (test code = 2219) 24 U/L LIPID [id number] 00:00:00 Test Item Value Reference Range Interpretation Comments CHOLESTEROL (test code = 2210) 335 MG/DL TRIGLYCERIDES (test code = 2232) 446 MG/DL HDL CHOLESTEROL (test code = 73 MG/DL 2220) CALC LDL CHOL (test code = 2237) (NOTE) MG/DL RISK RATIO LDL/HDL (test code = (NOTE) RATIO 2238) LIPID [id number] 00:00:00 Test Item Value Reference Range Interpretation Comments CHOLESTEROL (test code = 2210) 335 MG/DL TRIGLYCERIDES (test code = 2232) 446 MG/DL HDL CHOLESTEROL (test code = 73 MG/DL 2220) CALC LDL CHOL (test code = 2237) (NOTE) MG/DL RISK RATIO LDL/HDL (test code = (NOTE) RATIO 2238) [id number] 00:00:00 Test Item Value Reference Range Interpretation Comments TSH, THIRD GENERATION (test >100.000 UIU/ML code = 2821) [id number] 00:00:00 Test Item Value Reference Range Interpretation Comments TSH, THIRD GENERATION (test >100.000 UIU/ML code = 2821) [id number] 00:00:00 Test Item Value Reference Range Interpretation Comments TSH, THIRD GENERATION (test >100.000 UIU/ML code = 2821) CBC W/AUTO [id number] 00:00:00 Test Item Value Reference Range Interpretation [...] code = 1015) 298 K/UL CBC W/AUTO [id number] 00:00:00 Test Item Value Reference Range Interpretation [...] code = 1015) 298 K/UL CBC W/AUTO [id number] 00:00:00 Test Item Value Reference Range Interpretation [...] code = 1015) 298 K/UL COMPREHENSIVE METABOLIC [id number] 00:00:00 Test Item Value Reference Range Interpretation Comments GLUCOSE (test code = 2217) 228 MG/DL BUN (test code = 2208) 23 MG/DL CREATININE (test code = 2214) 5.99 MG/DL eGFR AMER. (test code 11 ML/MIN/1.73 = 52800) eGFR NON- AMER. (test 10 ML/MIN/1.73 code = 70203) CALC BUN/CREAT (test code = 4 RATIO [...] code = 2219) 24 U/L COMPREHENSIVE METABOLIC [id number] 00:00:00 Test Item Value Reference Range Interpretation Comments GLUCOSE (test code = 2217) 228 MG/DL BUN (test code = 2208) 23 MG/DL CREATININE (test code = 2214) 5.99 MG/DL eGFR AMER. (test code 11 ML/MIN/1.73 = 72836) eGFR NON- AMER. (test 10 ML/MIN/1.73 code = 25194) CALC BUN/CREAT (test code = 4 RATIO [...] (test code = 2219) 24 U/L LIPID [id number] 00:00:00 Test Item Value Reference Range Interpretation Comments CHOLESTEROL (test code = 2210) 335 MG/DL TRIGLYCERIDES (test code = 2232) 446 MG/DL HDL CHOLESTEROL (test code = 73 MG/DL 2220) CALC LDL CHOL (test code = 2237) (NOTE) MG/DL RISK RATIO LDL/HDL (test code = (NOTE) RATIO 2238) LIPID [id number] 00:00:00 Test Item Value Reference Range Interpretation Comments CHOLESTEROL (test code = 2210) 335 MG/DL TRIGLYCERIDES (test code = 2232) 446 MG/DL HDL CHOLESTEROL (test code = 73 MG/DL 2220) CALC LDL CHOL (test code = 2237) (NOTE) MG/DL RISK RATIO LDL/HDL (test code = (NOTE) RATIO 2238) [id number] 00:00:00 Test Item Value Reference Range Interpretation Comments TSH, THIRD GENERATION (test >100.000 UIU/ML code = 2821) [id number] 00:00:00 Test Item Value Reference Range Interpretation Comments TSH, THIRD GENERATION (test >100.000 UIU/ML code = 2821) [id number] 00:00:00 Test Item Value Reference Range Interpretation Comments TSH, THIRD GENERATION (test >100.000 UIU/ML code = 2821) CBC W/AUTO [id number] 00:00:00 Test Item Value Reference Range Interpretation [...] code = 1015) 298 K/UL CBC W/AUTO [id number] 00:00:00 Test Item Value Reference Range Interpretation [...] code = 1015) 298 K/UL CBC W/AUTO [id number] 00:00:00 Test Item Value Reference Range Interpretation [...] code = 1015) 298 K/UL CBC W/AUTO [id number] 00:00:00 Test Item Value Reference Range Interpretation [...] code = 1015) 298 K/UL CBC W/AUTO [id number] 00:00:00 Test Item Value Reference Range Interpretation [...] code = 1015) 298 K/UL COMPREHENSIVE METABOLIC [id number] 00:00:00 Test Item Value Reference Range Interpretation Comments GLUCOSE (test code = 2217) 228 MG/DL BUN (test code = 2208) 23 MG/DL CREATININE (test code = 2214) 5.99 MG/DL eGFR AMER. (test code 11 ML/MIN/1.73 = 25731) eGFR NON- AMER. (test 10 ML/MIN/1.73 code = 73577) CALC BUN/CREAT (test code = 4 RATIO [...] code = 2219) 24 U/L COMPREHENSIVE METABOLIC [id number] 00:00:00 Test Item Value Reference Range Interpretation Comments GLUCOSE (test code = 2217) 228 MG/DL BUN (test code = 2208) 23 MG/DL CREATININE (test code = 2214) 5.99 MG/DL eGFR AMER. (test code 11 ML/MIN/1.73 = 74377) eGFR NON- AMER. (test 10 ML/MIN/1.73 code = 04842) CALC BUN/CREAT (test code = 4 RATIO [...] (test code = 2219) 24 U/L LIPID [id number] 00:00:00 Test Item Value Reference Range Interpretation Comments CHOLESTEROL (test code = 2210) 335 MG/DL TRIGLYCERIDES (test code = 2232) 446 MG/DL HDL CHOLESTEROL (test code = 73 MG/DL 2220) CALC LDL CHOL (test code = 2237) (NOTE) MG/DL RISK RATIO LDL/HDL (test code = (NOTE) RATIO 2238) LIPID [id number] 00:00:00 Test Item Value Reference Range Interpretation Comments CHOLESTEROL (test code = 2210) 335 MG/DL TRIGLYCERIDES (test code = 2232) 446 MG/DL HDL CHOLESTEROL (test code = 73 MG/DL 2220) CALC LDL CHOL (test code = 2237) (NOTE) MG/DL RISK RATIO LDL/HDL (test code = (NOTE) RATIO 2238) [id number] 00:00:00 Test Item Value Reference Range Interpretation Comments TSH, THIRD GENERATION (test >100.000 UIU/ML code = 2821) [id number] 00:00:00 Test Item Value Reference Range Interpretation Comments TSH, THIRD GENERATION (test >100.000 UIU/ML code = 2821) [id number] 00:00:00 Test Item Value Reference Range Interpretation Comments TSH, THIRD GENERATION (test >100.000 UIU/ML code = 2821) COMPREHENSIVE METABOLIC [id number] 00:00:00 Test Item Value Reference Range Interpretation Comments GLUCOSE (test code = 2217) 228 MG/DL BUN (test code = 2208) 23 MG/DL CREATININE (test code = 2214) 5.99 MG/DL eGFR AMER. (test code 11 ML/MIN/1.73 = 00711) eGFR NON- AMER. (test 10 ML/MIN/1.73 code = 53179) CALC BUN/CREAT (test code = 4 RATIO [...] (test code = 2219) 24 U/L LIPID [id number] 00:00:00 Test Item Value Reference Range Interpretation Comments CHOLESTEROL (test code = 2210) 335 MG/DL TRIGLYCERIDES (test code = 2232) 446 MG/DL HDL CHOLESTEROL (test code = 73 MG/DL 2219) CALC LDL CHOL (test code = 2237) (NOTE) MG/DL RISK RATIO LDL/HDL (test code = (NOTE) RATIO 2238) [id number] 00:00:00 Test Item Value Reference Range Interpretation Comments TSH, THIRD GENERATION (test >100.000 UIU/ML code = 2821) [id number] 00:00:00 Test Item Value Reference Range Interpretation Comments TSH, THIRD GENERATION (test >100.000 UIU/ML code = 2821) CBC W/AUTO [id number] 00:00:00 Test Item Value Reference Range Interpretation [...] code = 1015) 298 K/UL CBC W/AUTO [id number] 00:00:00 Test Item Value Reference Range Interpretation [...] code = 1015) 298 K/UL CBC W/AUTO [id number] 00:00:00 Test Item Value Reference Range Interpretation [...] code = 1015) 298 K/UL COMPREHENSIVE METABOLIC [id number] 00:00:00 Test Item Value Reference Range Interpretation Comments GLUCOSE (test code = 2217) 228 MG/DL BUN (test code = 2208) 23 MG/DL CREATININE (test code = 2214) 5.99 MG/DL eGFR AMER. (test code 11 ML/MIN/1.73 = 34801) eGFR NON- AMER. (test 10 ML/MIN/1.73 code = 15739) CALC BUN/CREAT (test code = 4 RATIO [...] code = 2219) 24 U/L COMPREHENSIVE METABOLIC [id number] 00:00:00 Test Item Value Reference Range Interpretation Comments GLUCOSE (test code = 2217) 228 MG/DL BUN (test code = 2208) 23 MG/DL CREATININE (test code = 2214) 5.99 MG/DL eGFR AMER. (test code 11 ML/MIN/1.73 = 45057) eGFR NON- AMER. (test 10 ML/MIN/1.73 code = 87738) CALC BUN/CREAT (test code = 4 RATIO [...] (test code = 2219) 24 U/L LIPID [id number] 00:00:00 Test Item Value Reference Range Interpretation Comments CHOLESTEROL (test code = 2210) 335 MG/DL TRIGLYCERIDES (test code = 2232) 446 MG/DL HDL CHOLESTEROL (test code = 73 MG/DL 2220) CALC LDL CHOL (test code = 2237) (NOTE) MG/DL RISK RATIO LDL/HDL (test code = (NOTE) RATIO 2238) LIPID [id number] 00:00:00 Test Item Value Reference Range Interpretation Comments CHOLESTEROL (test code = 2210) 335 MG/DL TRIGLYCERIDES (test code = 2232) 446 MG/DL HDL CHOLESTEROL (test code = 73 MG/DL 2220) CALC LDL CHOL (test code = 2237) (NOTE) MG/DL RISK RATIO LDL/HDL (test code = (NOTE) RATIO 2238) [id number] 00:00:00 Test Item Value Reference Range Interpretation Comments TSH, THIRD GENERATION (test >100.000 UIU/ML code = 2821) [id number] 00:00:00 Test Item Value Reference Range Interpretation Comments TSH, THIRD GENERATION (test >100.000 UIU/ML code = 2821) [id number] 00:00:00 Test Item Value Reference Range Interpretation Comments TSH, THIRD GENERATION (test >100.000 UIU/ML code = 2821) CBC W/AUTO [id number] 00:00:00 Test Item Value Reference Range Interpretation [...] code = 1015) 298 K/UL CBC W/AUTO [id number] 00:00:00 Test Item Value Reference Range Interpretation [...] code = 1015) 298 K/UL CBC W/AUTO [id number] 00:00:00 Test Item Value Reference Range Interpretation [...] code = 1015) 298 K/UL COMPREHENSIVE METABOLIC [id number] 00:00:00 Test Item Value Reference Range Interpretation Comments GLUCOSE (test code = 2217) 228 MG/DL BUN (test code = 2208) 23 MG/DL CREATININE (test code = 2214) 5.99 MG/DL eGFR AMER. (test code 11 ML/MIN/1.73 = 76345) eGFR NON- AMER. (test 10 ML/MIN/1.73 code = 47712) CALC BUN/CREAT (test code = 4 RATIO [...] code = 2219) 24 U/L COMPREHENSIVE METABOLIC [id number] 00:00:00 Test Item Value Reference Range Interpretation Comments GLUCOSE (test code = 2217) 228 MG/DL BUN (test code = 2208) 23 MG/DL CREATININE (test code = 2214) 5.99 MG/DL eGFR AMER. (test code 11 ML/MIN/1.73 = 01006) eGFR NON- AMER. (test 10 ML/MIN/1.73 code = 16863) CALC BUN/CREAT (test code = 4 RATIO [...] (test code = 2219) 24 U/L LIPID [id number] 00:00:00 Test Item Value Reference Range Interpretation Comments CHOLESTEROL (test code = 2210) 335 MG/DL TRIGLYCERIDES (test code = 2232) 446 MG/DL HDL CHOLESTEROL (test code = 73 MG/DL 2220) CALC LDL CHOL (test code = 2237) (NOTE) MG/DL RISK RATIO LDL/HDL (test code = (NOTE) RATIO 2238) LIPID [id number] 00:00:00 Test Item Value Reference Range Interpretation Comments CHOLESTEROL (test code = 2210) 335 MG/DL TRIGLYCERIDES (test code = 2232) 446 MG/DL HDL CHOLESTEROL (test code = 73 MG/DL 2220) CALC LDL CHOL (test code = 2237) (NOTE) MG/DL RISK RATIO LDL/HDL (test code = (NOTE) RATIO 2238) [id number] 00:00:00 Test Item Value Reference Range Interpretation Comments TSH, THIRD GENERATION (test >100.000 UIU/ML code = 2821) [id number] 00:00:00 Test Item Value Reference Range Interpretation Comments TSH, THIRD GENERATION (test >100.000 UIU/ML code = 2821) [id number] 00:00:00 Test Item Value Reference Range Interpretation Comments TSH, THIRD GENERATION (test >100.000 UIU/ML code = 2821) CBC W/AUTO [id number] 00:00:00 Test Item Value Reference Range Interpretation [...] code = 1015) 298 K/UL CBC W/AUTO [id number] 00:00:00 Test Item Value Reference Range Interpretation [...] code = 1015) 298 K/UL CBC W/AUTO [id number] 00:00:00 Test Item Value Reference Range Interpretation [...] code = 1015) 298 K/UL COMPREHENSIVE METABOLIC [id number] 00:00:00 Test Item Value Reference Range Interpretation Comments GLUCOSE (test code = 2217) 228 MG/DL BUN (test code = 2208) 23 MG/DL CREATININE (test code = 2214) 5.99 MG/DL eGFR AMER. (test code 11 ML/MIN/1.73 = 41582) eGFR NON- AMER. (test 10 ML/MIN/1.73 code = 55430) CALC BUN/CREAT (test code = 4 RATIO [...] ALKALINE PHOSPHATASE (test 66 U/L code = 220) AST (test code = 2218) 22 U/L ALT (test code = 2219) 24 U/L COMPREHENSIVE METABOLIC [id number] 00:00:00 Test Item Value Reference Range Interpretation Comments GLUCOSE (test code = 2217) 228 MG/DL BUN (test code = 2208) 23 MG/DL CREATININE (test code = 2214) 5.99 MG/DL eGFR AMER. (test code 11 ML/MIN/1.73 = 82418) eGFR NON- AMER. (test 10 ML/MIN/1.73 code = 50971) CALC BUN/CREAT (test code = 4 RATIO [...] (test code = 2219) 24 U/L LIPID [id number] 00:00:00 Test Item Value Reference Range Interpretation Comments CHOLESTEROL (test code = 2210) 335 MG/DL TRIGLYCERIDES (test code = 2232) 446 MG/DL HDL CHOLESTEROL (test code = 73 MG/DL 2220) CALC LDL CHOL (test code = 2237) (NOTE) MG/DL RISK RATIO LDL/HDL (test code = (NOTE) RATIO 2238) LIPID [id number] 00:00:00 Test Item Value Reference Range Interpretation Comments CHOLESTEROL (test code = 2210) 335 MG/DL TRIGLYCERIDES (test code = 2232) 446 MG/DL HDL CHOLESTEROL (test code = 73 MG/DL 2220) CALC LDL CHOL (test code = 2237) (NOTE) MG/DL RISK RATIO LDL/HDL (test code = (NOTE) RATIO 2238) [id number] 00:00:00 Test Item Value Reference Range Interpretation Comments TSH, THIRD GENERATION (test >100.000 UIU/ML code = 2821) [id number] 00:00:00 Test Item Value Reference Range Interpretation Comments TSH, THIRD GENERATION (test >100.000 UIU/ML code = 2821) [id number] 00:00:00 Test Item Value Reference Range Interpretation Comments TSH, THIRD GENERATION (test >100.000 UIU/ML code = 2821) CBC W/AUTO [id number] 00:00:00 Test Item Value Reference Range Interpretation [...] code = 1015) 298 K/UL CBC W/AUTO [id number] 00:00:00 Test Item Value Reference Range Interpretation [...] code = 1015) 298 K/UL CBC W/AUTO [id number] 00:00:00 Test Item Value Reference Range Interpretation [...] code = 1015) 298 K/UL COMPREHENSIVE METABOLIC [id number] 00:00:00 Test Item Value Reference Range Interpretation Comments GLUCOSE (test code = 2217) 228 MG/DL BUN (test code = 2208) 23 MG/DL CREATININE (test code = 2214) 5.99 MG/DL eGFR AMER. (test code 11 ML/MIN/1.73 = 24263) eGFR NON- AMER. (test 10 ML/MIN/1.73 code = 85623) CALC BUN/CREAT (test code = 4 RATIO [...] code = 2219) 24 U/L COMPREHENSIVE METABOLIC [id number] 00:00:00 Test Item Value Reference Range Interpretation Comments GLUCOSE (test code = 2217) 228 MG/DL BUN (test code = 2208) 23 MG/DL CREATININE (test code = 2214) 5.99 MG/DL eGFR AMER. (test code 11 ML/MIN/1.73 = 57285) eGFR NON- AMER. (test 10 ML/MIN/1.73 code = 21406) CALC BUN/CREAT (test code = 4 RATIO [...] (test code = 2219) 24 U/L LIPID [id number] 00:00:00 Test Item Value Reference Range Interpretation Comments CHOLESTEROL (test code = 2210) 335 MG/DL TRIGLYCERIDES (test code = 2232) 446 MG/DL HDL CHOLESTEROL (test code = 73 MG/DL 2220) CALC LDL CHOL (test code = 2237) (NOTE) MG/DL RISK RATIO LDL/HDL (test code = (NOTE) RATIO 2238) LIPID [id number] 00:00:00 Test Item Value Reference Range Interpretation Comments CHOLESTEROL (test code = 2210) 335 MG/DL TRIGLYCERIDES (test code = 2232) 446 MG/DL HDL CHOLESTEROL (test code = 73 MG/DL 2220) CALC LDL CHOL (test code = 2237) (NOTE) MG/DL RISK RATIO LDL/HDL (test code = (NOTE) RATIO 2238) [id number] 00:00:00 Test Item Value Reference Range Interpretation Comments TSH, THIRD GENERATION (test >100.000 UIU/ML code = 2821) [id number] 00:00:00 Test Item Value Reference Range Interpretation Comments TSH, THIRD GENERATION (test >100.000 UIU/ML code = 2821) [id number] 00:00:00 Test Item Value Reference Range Interpretation Comments TSH, THIRD GENERATION (test >100.000 UIU/ML code = 2821) [id number] 00:00:00 Test Item Value Reference Range Interpretation Comments TSH, THIRD GENERATION (test >100.000 UIU/ML code = 2821) [id number] 00:00:00 Test Item Value Reference Range Interpretation Comments TSH, THIRD GENERATION (test >100.000 UIU/ML code = 2821) [id number] 00:00:00 Test Item Value Reference Range Interpretation Comments TSH, THIRD GENERATION (test >100.000 UIU/ML code = 2821) LIPID [id number] 00:00:00 Test Item Value Reference Range Interpretation Comments CHOLESTEROL (test code = 2210) 316 MG/DL TRIGLYCERIDES (test code = 2232) 547 MG/DL HDL CHOLESTEROL (test code = 54 MG/DL 2220) CALC LDL CHOL (test code = 2237) (NOTE) MG/DL RISK RATIO LDL/HDL (test code = (NOTE) RATIO 2238) LIPID [id number] 00:00:00 Test Item Value Reference Range Interpretation Comments CHOLESTEROL (test code = 2210) 316 MG/DL TRIGLYCERIDES (test code = 2232) 547 MG/DL HDL CHOLESTEROL (test code = 54 MG/DL 2220) CALC LDL CHOL (test code = 2237) (NOTE) MG/DL RISK RATIO LDL/HDL (test code = (NOTE) RATIO 2238) [id number] 00:00:00 Test Item Value Reference Range Interpretation Comments TSH, THIRD GENERATION (test >100.000 UIU/ML code = 2821) [id number] 00:00:00 Test Item Value Reference Range Interpretation Comments TSH, THIRD GENERATION (test >100.000 UIU/ML code = 2821) [id number] 00:00:00 Test Item Value Reference Range Interpretation Comments TSH, THIRD GENERATION (test >100.000 UIU/ML code = 2821) LIPID [id number] 00:00:00 Test Item Value Reference Range Interpretation Comments CHOLESTEROL (test code = 2210) 316 MG/DL TRIGLYCERIDES (test code = 2232) 547 MG/DL HDL CHOLESTEROL (test code = 54 MG/DL 2220) CALC LDL CHOL (test code = 2237) (NOTE) MG/DL RISK RATIO LDL/HDL (test code = (NOTE) RATIO 2238) LIPID [id number] 00:00:00 Test Item Value Reference Range Interpretation Comments CHOLESTEROL (test code = 2210) 316 MG/DL TRIGLYCERIDES (test code = 2232) 547 MG/DL HDL CHOLESTEROL (test code = 54 MG/DL 2220) CALC LDL CHOL (test code = 2237) (NOTE) MG/DL RISK RATIO LDL/HDL (test code = (NOTE) RATIO 2238) [id number] 00:00:00 Test Item Value Reference Range Interpretation Comments TSH, THIRD GENERATION (test >100.000 UIU/ML code = 2821) [id number] 00:00:00 Test Item Value Reference Range Interpretation Comments TSH, THIRD GENERATION (test >100.000 UIU/ML code = 2821) [id number] 00:00:00 Test Item Value Reference Range Interpretation Comments TSH, THIRD GENERATION (test >100.000 UIU/ML code = 2821) [id number] 00:00:00 Test Item Value Reference Range Interpretation Comments TSH, THIRD GENERATION (test >100.000 UIU/ML code = 2821) LIPID [id number] 00:00:00 Test Item Value Reference Range Interpretation Comments CHOLESTEROL (test code = 2210) 316 MG/DL TRIGLYCERIDES (test code = 2232) 547 MG/DL HDL CHOLESTEROL (test code = 54 MG/DL 2220) CALC LDL CHOL (test code = 2237) (NOTE) MG/DL RISK RATIO LDL/HDL (test code = (NOTE) RATIO 2238) LIPID [id number] 00:00:00 Test Item Value Reference Range Interpretation Comments CHOLESTEROL (test code = 2210) 316 MG/DL TRIGLYCERIDES (test code = 2232) 547 MG/DL HDL CHOLESTEROL (test code = 54 MG/DL 2220) CALC LDL CHOL (test code = 2237) (NOTE) MG/DL RISK RATIO LDL/HDL (test code = (NOTE) RATIO 2238) [id number] 00:00:00 Test Item Value Reference Range Interpretation Comments TSH, THIRD GENERATION (test >100.000 UIU/ML code = 2821) LIPID [id number] 00:00:00 Test Item Value Reference Range Interpretation Comments CHOLESTEROL (test code = 2210) 316 MG/DL TRIGLYCERIDES (test code = 2232) 547 MG/DL HDL CHOLESTEROL (test code = 54 MG/DL 2220) CALC LDL CHOL (test code = 2237) (NOTE) MG/DL RISK RATIO LDL/HDL (test code = (NOTE) RATIO 2238) [id number] 00:00:00 Test Item Value Reference Range Interpretation Comments TSH, THIRD GENERATION (test >100.000 UIU/ML code = 2821) [id number] 00:00:00 Test Item Value Reference Range Interpretation Comments TSH, THIRD GENERATION (test >100.000 UIU/ML code = 2821) [id number] 00:00:00 Test Item Value Reference Range Interpretation Comments TSH, THIRD GENERATION (test >100.000 UIU/ML code = 2821) LIPID [id number] 00:00:00 Test Item Value Reference Range Interpretation Comments CHOLESTEROL (test code = 2210) 316 MG/DL TRIGLYCERIDES (test code = 2232) 547 MG/DL HDL CHOLESTEROL (test code = 54 MG/DL 2220) CALC LDL CHOL (test code = 2237) (NOTE) MG/DL RISK RATIO LDL/HDL (test code = (NOTE) RATIO 2238) LIPID [id number] 00:00:00 Test Item Value Reference Range Interpretation Comments CHOLESTEROL (test code = 2210) 316 MG/DL TRIGLYCERIDES (test code = 2232) 547 MG/DL HDL CHOLESTEROL (test code = 54 MG/DL 2220) CALC LDL CHOL (test code = 2237) (NOTE) MG/DL RISK RATIO LDL/HDL (test code = (NOTE) RATIO 2238) [id number] 00:00:00 Test Item Value Reference Range Interpretation Comments TSH, THIRD GENERATION (test >100.000 UIU/ML code = 2821) [id number] 00:00:00 Test Item Value Reference Range Interpretation Comments TSH, THIRD GENERATION (test >100.000 UIU/ML code = 2821) [id number] 00:00:00 Test Item Value Reference Range Interpretation Comments TSH, THIRD GENERATION (test >100.000 UIU/ML code = 2821) LIPID [id number] 00:00:00 Test Item Value Reference Range Interpretation Comments CHOLESTEROL (test code = 2210) 316 MG/DL TRIGLYCERIDES (test code = 2232) 547 MG/DL HDL CHOLESTEROL (test code = 54 MG/DL 2220) CALC LDL CHOL (test code = 2237) (NOTE) MG/DL RISK RATIO LDL/HDL (test code = (NOTE) RATIO 2238) LIPID [id number] 00:00:00 Test Item Value Reference Range Interpretation Comments CHOLESTEROL (test code = 2210) 316 MG/DL TRIGLYCERIDES (test code = 2232) 547 MG/DL HDL CHOLESTEROL (test code = 54 MG/DL 2220) CALC LDL CHOL (test code = 2237) (NOTE) MG/DL RISK RATIO LDL/HDL (test code = (NOTE) RATIO 2238) [id number] 00:00:00 Test Item Value Reference Range Interpretation Comments TSH, THIRD GENERATION (test >100.000 UIU/ML code = 2821) [id number] 00:00:00 Test Item Value Reference Range Interpretation Comments TSH, THIRD GENERATION (test >100.000 UIU/ML code = 2821) [id number] 00:00:00 Test Item Value Reference Range Interpretation Comments TSH, THIRD GENERATION (test >100.000 UIU/ML code = 2821) LIPID [id number] 00:00:00 Test Item Value Reference Range Interpretation Comments CHOLESTEROL (test code = 2210) 316 MG/DL TRIGLYCERIDES (test code = 2232) 547 MG/DL HDL CHOLESTEROL (test code = 54 MG/DL 2220) CALC LDL CHOL (test code = 2237) (NOTE) MG/DL RISK RATIO LDL/HDL (test code = (NOTE) RATIO 2238) LIPID [id number] 00:00:00 Test Item Value Reference Range Interpretation Comments CHOLESTEROL (test code = 2210) 316 MG/DL TRIGLYCERIDES (test code = 2232) 547 MG/DL HDL CHOLESTEROL (test code = 54 MG/DL 2220) CALC LDL CHOL (test code = 2237) (NOTE) MG/DL RISK RATIO LDL/HDL (test code = (NOTE) RATIO 2238) [id number] 00:00:00 Test Item Value Reference Range Interpretation Comments TSH, THIRD GENERATION (test >100.000 UIU/ML code = 2821) [id number] 00:00:00 Test Item Value Reference Range Interpretation Comments TSH, THIRD GENERATION (test >100.000 UIU/ML code = 2821) [id number] 00:00:00 Test Item Value Reference Range Interpretation Comments TSH, THIRD GENERATION (test >100.000 UIU/ML code = 2821) LIPID [id number] 00:00:00 Test Item Value Reference Range Interpretation Comments CHOLESTEROL (test code = 2210) 316 MG/DL TRIGLYCERIDES (test code = 2232) 547 MG/DL HDL CHOLESTEROL (test code = 54 MG/DL 2220) CALC LDL CHOL (test code = 2237) (NOTE) MG/DL RISK RATIO LDL/HDL (test code = (NOTE) RATIO 2238) LIPID [id number] 00:00:00 Test Item Value Reference Range Interpretation [...] code = Normal 762) HEPATITIS B SURFACE [id number] 09:48:00 Test Item Value Reference Range Interpretation [...] (BEAKER) (test code = 1+ few 966) [id number] 05:55:00 Test Item Value Reference Range Interpretation Comments PHOSPHORUS (BEAKER) (test code = 9.2 mg/dL 2.3-4.7 HH 604) Ground Service Equipment Mechanic ID - RA MBASIC METABOLIC [id number] 05:04:00 Test Item Value Reference Range Interpretation [...] S NOT APPLICABLE FOR DIALYSIS PATIEN TS. Ground Service Equipment Mechanic ID - RA MCBC WITH PLATELET COUNT + MANUAL [id number] 04:42:00 Test Item Value Reference Range Interpretation [...] (BEAKER) (test code = 413) BASIC METABOLIC [id number] 03:00:00 Test Item Value Reference Range Interpretation [...] S NOT APPLICABLE FOR DIALYSIS PATIEN TS. Ground Service Equipment Mechanic ID - RA [id number] 02:58:00 Test Item Value Reference Range Interpretation Comments PHOSPHORUS (BEAKER) (test code = 7.4 mg/dL 2.3-4.7 H 604) Ground Service Equipment Mechanic ALEXANDER KNAPP MCBC W/PLT COUNT & AUTO [id number] 02:38:00 Test Item Value Reference Range Interpretation [...] (BEAKER) (test code = 2801) SARS-COV2/RT-PCR ([facility])2019-12-14 11:10:00 Test Item Value Reference Range Interpretation Comments SARS-COV2/RT-PCR (test code Negative Not Detected, Negative, = [id number]) See external report for linked test SARS-COV-[address] [facility] (test code = 6833309) Negative results do not preclude SARS-CoV-2 infection [...] of the Act.Fact Sheet for Healthcare Pro viders:https://www.Wedit.[employer]/Documents/Xpert%20Xpress%20SARS%20CoV-2/Fact%20Sh eets/302-3182%64IGCO-RXD-8%20HEALTHCARE%20PROVIDERS%20FACT%20SHEET.pdfFact Sheet for Healthcare Patients:[email or web address]://www.[email or web address] id.[employer]/Documents/Xpert%20Xpress%20SARS%20CoV-2/Fact%20Sheets/302-3801%20SARS-COV -2%20PATIENT%20FACT%20SHEET.pdfPerforming Laboratory:[facility], [place] [address]RQIUA METABOLIC [id number] 09:53:00 Test Item Value Reference Range Interpretation [...] S NOT APPLICABLE FOR DIALYSIS PATIEN TS. Ground Service Equipment Mechanic ID - ROSIANGPROTHROMBIN TIME/[id number] 09:39:00 Test Item Value Reference Range Interpretation [...] 0-0 (BEAKER) (test code = 413) URINE [id number] 11:01:00 Test Item Value Reference Range Interpretation Comments CULTURE (BEAKER) ENTEROCOCCUS A 40-49,000 c ol/mL (test code = 1095) FAECALIS Enterococ cus faecalis Ampicillin (test S code = 26) Linezolid (test code S = 40) Nitrofurantoin (test S code = 23) Tetracycline (test R code = 2) Vancomycin (test S code = 13) <10,000 col/mL skin floraHEMOGLOBIN [id number] 00:00:00 Test Item Value Reference Range Interpretation Comments HEMOGLOBIN A1c (test code = 22454) 6.9 % HEMOGLOBIN [id number] 00:00:00 Test Item Value Reference Range Interpretation Comments HEMOGLOBIN A1c (test code = 46421) 6.9 % HEMOGLOBIN [id number] 00:00:00 Test Item Value Reference Range Interpretation Comments HEMOGLOBIN A1c (test code = 97297) 6.9 % LIPID [id number] 00:00:00 Test Item Value Reference Range Interpretation Comments CHOLESTEROL (test code = 2210) 309 MG/DL TRIGLYCERIDES (test code = 2232) 587 MG/DL HDL CHOLESTEROL (test code = 48 MG/DL 2220) CALC LDL CHOL (test code = 2237) (NOTE) MG/DL RISK RATIO LDL/HDL (test code = (NOTE) RATIO 2238) LIPID [id number] 00:00:00 Test Item Value Reference Range Interpretation [...] THYROX. BIND. CAPAC. (test 1.5 code = 25726) T4 (THYROXINE) (test code = <1.2 UG/DL 2819) CORRECTED T4 (FTI) (test code (NOTE) UG/DL = 2820) TSH, THIRD GENERATION (test >100.000 UIU/ML code = 2821) THYROID II PROFILE (TU,T4,FTI,TSH) [ADDED]2019-10-26 00:00:00 Test Item Value Reference Range Interpretation Comments T-UPTAKE (test code = 2817) 18.4 % THYROX. BIND. CAPAC. (test 1.5 code = 56115) T4 (THYROXINE) (test code = <1.2 UG/DL 2819) CORRECTED T4 (FTI) (test code (NOTE) UG/DL = 2820) TSH, THIRD GENERATION (test >100.000 UIU/ML code = 2821) HEMOGLOBIN [id number] 00:00:00 Test Item Value Reference Range Interpretation Comments HEMOGLOBIN A1c (test code = 84638) 6.9 % HEMOGLOBIN [id number] 00:00:00 Test Item Value Reference Range Interpretation Comments HEMOGLOBIN A1c (test code = 05206) 6.9 % HEMOGLOBIN [id number] 00:00:00 Test Item Value Reference Range Interpretation Comments HEMOGLOBIN A1c (test code = 07607) 6.9 % LIPID [id number] 00:00:00 Test Item Value Reference Range Interpretation Comments CHOLESTEROL (test code = 2210) 309 MG/DL TRIGLYCERIDES (test code = 2232) 587 MG/DL HDL CHOLESTEROL (test code = 48 MG/DL 2220) CALC LDL CHOL (test code = 2237) (NOTE) MG/DL RISK RATIO LDL/HDL (test code = (NOTE) RATIO 2238) LIPID [id number] 00:00:00 Test Item Value Reference Range Interpretation [...] THYROX. BIND. CAPAC. (test 1.5 code = 82837) T4 (THYROXINE) (test code = <1.2 UG/DL 2819) CORRECTED T4 (FTI) (test code (NOTE) UG/DL = 2820) TSH, THIRD GENERATION (test >100.000 UIU/ML code = 2821) THYROID II PROFILE (TU,T4,FTI,TSH) [ADDED]2019-10-26 00:00:00 Test Item Value Reference Range Interpretation Comments T-UPTAKE (test code = 2817) 18.4 % THYROX. BIND. CAPAC. (test 1.5 code = 90931) T4 (THYROXINE) (test code = <1.2 UG/DL 2819) CORRECTED T4 (FTI) (test code (NOTE) UG/DL = 2820) TSH, THIRD GENERATION (test >100.000 UIU/ML code = 2821) HEMOGLOBIN [id number] 00:00:00 Test Item Value Reference Range Interpretation Comments HEMOGLOBIN A1c (test code = 37586) 6.9 % HEMOGLOBIN [id number] 00:00:00 Test Item Value Reference Range Interpretation Comments HEMOGLOBIN A1c (test code = 65610) 6.9 % HEMOGLOBIN [id number] 00:00:00 Test Item Value Reference Range Interpretation Comments HEMOGLOBIN A1c (test code = 60022) 6.9 % HEMOGLOBIN [id number] 00:00:00 Test Item Value Reference Range Interpretation Comments HEMOGLOBIN A1c (test code = 41819) 6.9 % HEMOGLOBIN [id number] 00:00:00 Test Item Value Reference Range Interpretation Comments HEMOGLOBIN A1c (test code = 03191) 6.9 % LIPID [id number] 00:00:00 Test Item Value Reference Range Interpretation Comments CHOLESTEROL (test code = 2210) 309 MG/DL TRIGLYCERIDES (test code = 2232) 587 MG/DL HDL CHOLESTEROL (test code = 48 MG/DL 2220) CALC LDL CHOL (test code = 2237) (NOTE) MG/DL RISK RATIO LDL/HDL (test code = (NOTE) RATIO 2238) LIPID [id number] 00:00:00 Test Item Value Reference Range Interpretation [...] THYROX. BIND. CAPAC. (test 1.5 code = 26334) T4 (THYROXINE) (test code = <1.2 UG/DL 2819) CORRECTED T4 (FTI) (test code (NOTE) UG/DL = 2820) TSH, THIRD GENERATION (test >100.000 UIU/ML code = 2821) THYROID II PROFILE (TU,T4,FTI,TSH) [ADDED]2019-10-26 00:00:00 Test Item Value Reference Range Interpretation Comments T-UPTAKE (test code = 2817) 18.4 % THYROX. BIND. CAPAC. (test 1.5 code = 58631) T4 (THYROXINE) (test code = <1.2 UG/DL 2819) CORRECTED T4 (FTI) (test code (NOTE) UG/DL = 2820) TSH, THIRD GENERATION (test >100.000 UIU/ML code = 2821) LIPID [id number] 00:00:00 Test Item Value Reference Range Interpretation [...] THYROX. BIND. CAPAC. (test 1.5 code = 90592) T4 (THYROXINE) (test code = <1.2 UG/DL 2819) CORRECTED T4 (FTI) (test code (NOTE) UG/DL = 2820) TSH, THIRD GENERATION (test >100.000 UIU/ML code = 2821) HEMOGLOBIN [id number] 00:00:00 Test Item Value Reference Range Interpretation Comments HEMOGLOBIN A1c (test code = 25557) 6.9 % HEMOGLOBIN [id number] 00:00:00 Test Item Value Reference Range Interpretation Comments HEMOGLOBIN A1c (test code = 65610) 6.9 % HEMOGLOBIN [id number] 00:00:00 Test Item Value Reference Range Interpretation Comments HEMOGLOBIN A1c (test code = 75929) 6.9 % LIPID [id number] 00:00:00 Test Item Value Reference Range Interpretation Comments CHOLESTEROL (test code = 2210) 309 MG/DL TRIGLYCERIDES (test code = 2232) 587 MG/DL HDL CHOLESTEROL (test code = 48 MG/DL 2220) CALC LDL CHOL (test code = 2237) (NOTE) MG/DL RISK RATIO LDL/HDL (test code = (NOTE) RATIO 2238) LIPID [id number] 00:00:00 Test Item Value Reference Range Interpretation [...] THYROX. BIND. CAPAC. (test 1.5 code = 23981) T4 (THYROXINE) (test code = <1.2 UG/DL 2819) CORRECTED T4 (FTI) (test code (NOTE) UG/DL = 2820) TSH, THIRD GENERATION (test >100.000 UIU/ML code = 2821) THYROID II PROFILE (TU,T4,FTI,TSH) [ADDED]2019-10-26 00:00:00 Test Item Value Reference Range Interpretation Comments T-UPTAKE (test code = 2817) 18.4 % THYROX. BIND. CAPAC. (test 1.5 code = 44668) T4 (THYROXINE) (test code = <1.2 UG/DL 2819) CORRECTED T4 (FTI) (test code (NOTE) UG/DL = 2820) TSH, THIRD GENERATION (test >100.000 UIU/ML code = 2821) HEMOGLOBIN [id number] 00:00:00 Test Item Value Reference Range Interpretation Comments HEMOGLOBIN A1c (test code = 05817) 6.9 % HEMOGLOBIN [id number] 00:00:00 Test Item Value Reference Range Interpretation Comments HEMOGLOBIN A1c (test code = 83180) 6.9 % HEMOGLOBIN [id number] 00:00:00 Test Item Value Reference Range Interpretation Comments HEMOGLOBIN A1c (test code = 88675) 6.9 % LIPID [id number] 00:00:00 Test Item Value Reference Range Interpretation Comments CHOLESTEROL (test code = 2210) 309 MG/DL TRIGLYCERIDES (test code = 2232) 587 MG/DL HDL CHOLESTEROL (test code = 48 MG/DL 2220) CALC LDL CHOL (test code = 2237) (NOTE) MG/DL RISK RATIO LDL/HDL (test code = (NOTE) RATIO 2238) LIPID [id number] 00:00:00 Test Item Value Reference Range Interpretation [...] THYROX. BIND. CAPAC. (test 1.5 code = 97680) T4 (THYROXINE) (test code = <1.2 UG/DL 2819) CORRECTED T4 (FTI) (test code (NOTE) UG/DL = 2820) TSH, THIRD GENERATION (test >100.000 UIU/ML code = 2821) THYROID II PROFILE (TU,T4,FTI,TSH) [ADDED]2019-10-26 00:00:00 Test Item Value Reference Range Interpretation Comments T-UPTAKE (test code = 2817) 18.4 % THYROX. BIND. CAPAC. (test 1.5 code = 84692) T4 (THYROXINE) (test code = <1.2 UG/DL 2819) CORRECTED T4 (FTI) (test code (NOTE) UG/DL = 2820) TSH, THIRD GENERATION (test >100.000 UIU/ML code = 2821) HEMOGLOBIN [id number] 00:00:00 Test Item Value Reference Range Interpretation Comments HEMOGLOBIN A1c (test code = 02495) 6.9 % HEMOGLOBIN [id number] 00:00:00 Test Item Value Reference Range Interpretation Comments HEMOGLOBIN A1c (test code = 30599) 6.9 % HEMOGLOBIN [id number] 00:00:00 Test Item Value Reference Range Interpretation Comments HEMOGLOBIN A1c (test code = 55026) 6.9 % LIPID [id number] 00:00:00 Test Item Value Reference Range Interpretation Comments CHOLESTEROL (test code = 2210) 309 MG/DL TRIGLYCERIDES (test code = 2232) 587 MG/DL HDL CHOLESTEROL (test code = 48 MG/DL 2220) CALC LDL CHOL (test code = 2237) (NOTE) MG/DL RISK RATIO LDL/HDL (test code = (NOTE) RATIO 2238) LIPID [id number] 00:00:00 Test Item Value Reference Range Interpretation [...] THYROX. BIND. CAPAC. (test 1.5 code = 67730) T4 (THYROXINE) (test code = <1.2 UG/DL 2819) CORRECTED T4 (FTI) (test code (NOTE) UG/DL = 2820) TSH, THIRD GENERATION (test >100.000 UIU/ML code = 2821) THYROID II PROFILE (TU,T4,FTI,TSH) [ADDED]2019-10-26 00:00:00 Test Item Value Reference Range Interpretation Comments T-UPTAKE (test code = 2817) 18.4 % THYROX. BIND. CAPAC. (test 1.5 code = 91415) T4 (THYROXINE) (test code = <1.2 UG/DL 2819) CORRECTED T4 (FTI) (test code (NOTE) UG/DL = 2820) TSH, THIRD GENERATION (test >100.000 UIU/ML code = 2821) HEMOGLOBIN [id number] 00:00:00 Test Item Value Reference Range Interpretation Comments HEMOGLOBIN A1c (test code = 07261) 6.9 % HEMOGLOBIN [id number] 00:00:00 Test Item Value Reference Range Interpretation Comments HEMOGLOBIN A1c (test code = 11939) 6.9 % HEMOGLOBIN [id number] 00:00:00 Test Item Value Reference Range Interpretation Comments HEMOGLOBIN A1c (test code = 73260) 6.9 % LIPID [id number] 00:00:00 Test Item Value Reference Range Interpretation Comments CHOLESTEROL (test code = 2210) 309 MG/DL TRIGLYCERIDES (test code = 2232) 587 MG/DL HDL CHOLESTEROL (test code = 48 MG/DL 2220) CALC LDL CHOL (test code = 2237) (NOTE) MG/DL RISK RATIO LDL/HDL (test code = (NOTE) RATIO 2238) LIPID [id number] 00:00:00 Test Item Value Reference Range Interpretation [...] THYROX. BIND. CAPAC. (test 1.5 code = 09478) T4 (THYROXINE) (test code = <1.2 UG/DL 2819) CORRECTED T4 (FTI) (test code (NOTE) UG/DL = 2820) TSH, THIRD GENERATION (test >100.000 UIU/ML code = 2821) THYROID II PROFILE (TU,T4,FTI,TSH) [ADDED]2019-10-26 00:00:00 Test Item Value Reference Range Interpretation Comments T-UPTAKE (test code = 2817) 18.4 % THYROX. BIND. CAPAC. (test 1.5 code = 11525) T4 (THYROXINE) (test code = <1.2 UG/DL 2819) CORRECTED T4 (FTI) (test code (NOTE) UG/DL = 2820) TSH, THIRD GENERATION (test >100.000 UIU/ML code = 2821) HEMOGLOBIN [id number] 09:52:00 Test Item Value Reference Range Interpretation Comments HEMOGLOBIN A1C (BEAKER) (test code = 6.6 % 4.3-6.1 H 368) Ground Service Equipment Mechanic ID - [id number] 09:08:00 Test Item Value Reference Range Interpretation Comments PROSTATE SPECIFIC ANTIGEN (BEAKER) 0.5 ng/mL 0.0-4.0 (test code = 844) Ground Service Equipment Mechanic ID - [place] FLIPID [id number] 08:00:00 Test Item Value Reference Range Interpretation [...] Borderline 130-159 High 160-189 Very High >=190 Ground Service Equipment Mechanic ID - CHUCHO CTHYROID II PROFILE (T3U, T4, T7, TSH)2019-07-05 00:00:00 Test Item Value Reference Range Interpretation Comments T-UPTAKE (test code = 2817) 24.3 % THYROX. BIND. CAPAC. (test 1.3 code = 01170) T4 (THYROXINE) (test code = 3.6 UG/DL 2819) CORRECTED T4 (FTI) (test code 2.8 UG/DL = 2820) TSH, THIRD GENERATION (test >100.000 UIU/ML code = 2821) THYROID II PROFILE (T3U, T4, T7, TSH)2019-07-05 00:00:00 Test Item Value Reference Range Interpretation Comments T-UPTAKE (test code = 2817) 24.3 % THYROX. BIND. CAPAC. (test 1.3 code = 26131) T4 (THYROXINE) (test code = 3.6 UG/DL 2819) CORRECTED T4 (FTI) (test code 2.8 UG/DL = 2820) TSH, THIRD GENERATION (test >100.000 UIU/ML code = 2821) THYROID II PROFILE (T3U, T4, T7, TSH)2019-07-05 00:00:00 Test Item Value Reference Range Interpretation Comments T-UPTAKE (test code = 2817) 24.3 % THYROX. BIND. CAPAC. (test 1.3 code = 13812) T4 (THYROXINE) (test code = 3.6 UG/DL 2819) CORRECTED T4 (FTI) (test code 2.8 UG/DL = 2820) TSH, THIRD GENERATION (test >100.000 UIU/ML code = 2821) THYROID II PROFILE (T3U, T4, T7, TSH)2019-07-05 00:00:00 Test Item Value Reference Range Interpretation Comments T-UPTAKE (test code = 2817) 24.3 % THYROX. BIND. CAPAC. (test 1.3 code = 95975) T4 (THYROXINE) (test code = 3.6 UG/DL 2819) CORRECTED T4 (FTI) (test code 2.8 UG/DL = 2820) TSH, THIRD GENERATION (test >100.000 UIU/ML code = 2821) THYROID II PROFILE (T3U, T4, T7, TSH)2019-07-05 00:00:00 Test Item Value Reference Range Interpretation Comments T-UPTAKE (test code = 2817) 24.3 % THYROX. BIND. CAPAC. (test 1.3 code = 48296) T4 (THYROXINE) (test code = 3.6 UG/DL 2819) CORRECTED T4 (FTI) (test code 2.8 UG/DL = 2820) TSH, THIRD GENERATION (test >100.000 UIU/ML code = 2821) THYROID II PROFILE (T3U, T4, T7, TSH)2019-07-05 00:00:00 Test Item Value Reference Range Interpretation Comments T-UPTAKE (test code = 2817) 24.3 % THYROX. BIND. CAPAC. (test 1.3 code = 39350) T4 (THYROXINE) (test code = 3.6 UG/DL 2819) CORRECTED T4 (FTI) (test code 2.8 UG/DL = 2820) TSH, THIRD GENERATION (test >100.000 UIU/ML code = 2821) THYROID II PROFILE (T3U, T4, T7, TSH)2019-07-05 00:00:00 Test Item Value Reference Range Interpretation Comments T-UPTAKE (test code = 2817) 24.3 % THYROX. BIND. CAPAC. (test 1.3 code = 07013) T4 (THYROXINE) (test code = 3.6 UG/DL 2819) CORRECTED T4 (FTI) (test code 2.8 UG/DL = 2820) TSH, THIRD GENERATION (test >100.000 UIU/ML code = 2821) THYROID II PROFILE (T3U, T4, T7, TSH)2019-07-05 00:00:00 Test Item Value Reference Range Interpretation Comments T-UPTAKE (test code = 2817) 24.3 % THYROX. BIND. CAPAC. (test 1.3 code = 46499) T4 (THYROXINE) (test code = 3.6 UG/DL 2819) CORRECTED T4 (FTI) (test code 2.8 UG/DL = 2820) TSH, THIRD GENERATION (test >100.000 UIU/ML code = 2821) THYROID II PROFILE (T3U, T4, T7, TSH)2019-07-05 00:00:00 Test Item Value Reference Range Interpretation Comments T-UPTAKE (test code = 2817) 24.3 % THYROX. BIND. CAPAC. (test 1.3 code = 17405) T4 (THYROXINE) (test code = 3.6 UG/DL 2819) CORRECTED T4 (FTI) (test code 2.8 UG/DL = 2820) TSH, THIRD GENERATION (test >100.000 UIU/ML code = 2821) THYROID II PROFILE (T3U, T4, T7, TSH)2019-07-05 00:00:00 Test Item Value Reference Range Interpretation Comments T-UPTAKE (test code = 2817) 24.3 % THYROX. BIND. CAPAC. (test 1.3 code = 26948) T4 (THYROXINE) (test code = 3.6 UG/DL 2819) CORRECTED T4 (FTI) (test code 2.8 UG/DL = 2820) TSH, THIRD GENERATION (test >100.000 UIU/ML code = 2821) THYROID II PROFILE (T3U, T4, T7, TSH)2019-07-05 00:00:00 Test Item Value Reference Range Interpretation Comments T-UPTAKE (test code = 2817) 24.3 % THYROX. BIND. CAPAC. (test 1.3 code = 80308) T4 (THYROXINE) (test code = 3.6 UG/DL 2819) CORRECTED T4 (FTI) (test code 2.8 UG/DL = 2820) TSH, THIRD GENERATION (test >100.000 UIU/ML code = 2821) THYROID II PROFILE (T3U, T4, T7, TSH)2019-07-05 00:00:00 Test Item Value Reference Range Interpretation Comments T-UPTAKE (test code = 2817) 24.3 % THYROX. BIND. CAPAC. (test 1.3 code = 29362) T4 (THYROXINE) (test code = 3.6 UG/DL 2819) CORRECTED T4 (FTI) (test code 2.8 UG/DL = 2820) TSH, THIRD GENERATION (test >100.000 UIU/ML code = 2821) THYROID II PROFILE (T3U, T4, T7, TSH)2019-07-05 00:00:00 Test Item Value Reference Range Interpretation Comments T-UPTAKE (test code = 2817) 24.3 % THYROX. BIND. CAPAC. (test 1.3 code = 81683) T4 (THYROXINE) (test code = 3.6 UG/DL 2819) CORRECTED T4 (FTI) (test code 2.8 UG/DL = 2820) TSH, THIRD GENERATION (test >100.000 UIU/ML code = 2821) THYROID II PROFILE (T3U, T4, T7, TSH)2019-07-05 00:00:00 Test Item Value Reference Range Interpretation Comments T-UPTAKE (test code = 2817) 24.3 % THYROX. BIND. CAPAC. (test 1.3 code = 92261) T4 (THYROXINE) (test code = 3.6 UG/DL 2819) CORRECTED T4 (FTI) (test code 2.8 UG/DL = 2820) TSH, THIRD GENERATION (test >100.000 UIU/ML code = 2821) THYROID II PROFILE (T3U, T4, T7, TSH)2019-07-05 00:00:00 Test Item Value Reference Range Interpretation Comments T-UPTAKE (test code = 2817) 24.3 % THYROX. BIND. CAPAC. (test 1.3 code = 49182) T4 (THYROXINE) (test code = 3.6 UG/DL 2819) CORRECTED T4 (FTI) (test code 2.8 UG/DL = 2820) TSH, THIRD GENERATION (test >100.000 UIU/ML code = 2821) URINE [id number] 14:35:00 Test Item Value Reference Range Interpretation Comments CULTURE (BEAKER) ENTEROCOCCUS A 10-19,000 c ol/mL (test code = 1095) FAECALIS Enterococ cus faecalis Ampicillin (test S code = 26) Levofloxacin (test S code = 22) Linezolid (test code S = 40) Nitrofurantoin (test S code = 23) Tetracycline (test R code = 2) Vancomycin (test S code = 13) 10-19,000 col/mL skin [id number] 10:31:00 Test Item Value Reference Range Interpretation Comments RPR SCREEN (BESETH) (test code = Nonreactive Nonreactive 420) U/S, ABDOMINAL, [id number] 16:14:00Reason for Exam:->Kidney transplant evaluation; comment on [...] MDReport Verified Date/Time: 05/23/2019 16:14:42 Reading Location: [address] Radiology Reading Room RAD, CHEST, 2 [id number] 16:02:00 Reason for Exam:->Pre kidney transplant evaluation.FINAL [...] MDReport Verified Date/Time: 05/23/2019 16:02:27 Reading Location: [address] Radiology Reading Room CYTOMEGALOVIRUS ANTIBODY, [id number] 15:17:00 Test Item Value Reference Range Interpretation Comments CYTOMEGALOVIRUS, IGG (BEAKER) Positive Negative, Equivocal A (test code = 3429) CMV IgG Result Interpretation: </= 0.8 Al Negative 0.9-1.0 Al Equivocal >/=1.1 Al PositiveCYTOMEGALOVIRUS ANTIBODY, [id number] 15:17:00 Test Item Value Reference Range Interpretation Comments CYTOMEGALOVIRUS IGM ANTIBODY Negative Negative, Equivocal (BEAKER) (test code = 3437) CMV IgM Result Interpretation: </= 0.8 Al Negative 0.9-1.0 Al Equivocal >/= 1.1 Al PositiveEBV ANTIBODY, [id number] 15:17:00 Test Item Value Reference Range Interpretation Comments NIHARIKA GRAYSON VIRAL CAPSID Positive Negative, Equivocal A ANTIGEN IGG (BEAKER) (test code = 3415) Niharika Grayson Viral Capsid Antigen IgG Result Interpretation: </= 0.8 Al Negative 0.9-1.0 Al Equivocal >/= 1.1 Al PositiveEBV ANTIBODY, [id number] 15:17:00 Test Item Value Reference Range Interpretation Comments NIHARIKA GRAYSON VIRAL CAPSID Negative Negative, Equivocal ANTIGEN IGM (BEAKER) (test code = 3418) Niharika Grayson Viral Capsid Antigen IgM Result Interpretation: </= 0.8 Al Negative 0.9-1.0 Al Equivocal >/= 1.1 Al PositiveVARICELLA ZOSTER ANTIBODY, [id number] 15:17:00 Test Item Value Reference Range Interpretation Comments VARICELLA ZOSTER IGG (AL) (BEAKER) 3.4 (test code = 3197) VARICELLA ZOSTER RESULT INTERPRETATIONS: <=0.8 Al Nonreactive: Presumed non- immune to VZV 0.9-1.0Al Equivocal >=1.1 Al Reactive: Presumed immune to VZV HEPATITIS B SURFACE [id number] 12:59:00 Test Item Value Reference Range Interpretation Comments HEPATITIS B SURFACE ANTIBODY 87856.3 mIU/mL <8.0 H (BEAKER) (test code = 647) Ground Service Equipment Mechanic ID - TIKAEPATITIS B SURFACE [id number] 12:47:00 Test Item Value Reference Range Interpretation Comments HEPATITIS B SURFACE ANTIGEN (2) Nonreactive Nonreactive (BEAKER) (test code = 2585) Ground Service Equipment Mechanic ID - TIKAEPATITIS B CORE ANTIBODY, [id number] 12:47:00 Test Item Value Reference Range Interpretation Comments HEPATITIS B CORE IGM ANTIBODY Nonreactive Nonreactive (BEAKER) (test code = 645) Ground Service Equipment Mechanic ID - NANCYGHEPATITIS C [id number] 12:47:00 Test Item Value Reference Range Interpretation Comments HEPATITIS C ANTIBODY (BEAKER) Nonreactive Nonreactive (test code = 367) Ground Service Equipment Mechanic ID - TIKAIV-1 ANTIGEN WITH HIV-1/2 [id number] 12:47:00 Test Item Value Reference Range Interpretation Comments HIV-1 ANTIGEN WITH HIV 1\T\2 Nonreactive Nonreactive ANTIBODY (2) (BEAKER) (test code = 2586) Ground Service Equipment Mechanic ID - NANCYGPTH, [id number] 12:03:00 Test Item Value Reference Range Interpretation Comments PARATHYROID HORMONE INTACT 430.9 pg/mL 8.5-72.5 H (BEAKER) (test code = 577) Ground Service Equipment Mechanic ID - LACOMPREHENSIVE METABOLIC [id number] 11:56:00 Test Item Value Reference Range Interpretation [...] S NOT APPLICABLE FOR DIALYSIS PATIEN TS. Ground Service Equipment Mechanic ID - LAURIC [id number] 11:55:00 Test Item Value Reference Range Interpretation Comments URIC ACID (BEAKER) (test code = 5.5 mg/dL 2.6-7.2 773) Ground Service Equipment Mechanic ID - [id number] 11:55:00 Test Item Value Reference Range Interpretation Comments PHOSPHORUS (BEAKER) (test code = 5.5 mg/dL 2.3-4.7 H 604) Ground Service Equipment Mechanic ID - LAGAMMA GLUTAMYL TRANSFERASE (GGT)2019-05-23 11:55:00 Test Item Value Reference Range Interpretation Comments GAMMA GLUTAMYL TRANSFERASE (BEAKER) 20 U/L 9-64 (test code = 364) Ground Service Equipment Mechanic ID - LALACTATE DEHYDROGENASE (LDH)2019-05-23 11:55:00 Test Item Value Reference Range Interpretation Comments LACTATE DEHYDROGENASE (BEAKER) (test 249 U/L 125-220 H code = 635) Ground Service Equipment Mechanic ID - LAURINALYSIS W/ [id number] 11:43:00 Test Item Value Reference Range Interpretation [...] < /HPF SOURCE(BEAKER) (test code = 2795) Ground Service Equipment Mechanic ID - [auto]Ground Service Equipment Mechanic ID - [id number] 11:32:00 Test Item Value Reference Range Interpretation [...] 2.5-3.5 for patients wiht mechanical heart valves.PROTHROMBIN TIME/[id number] 11:31:00 Test Item Value Reference Range Interpretation [...] mechanical heart valves.CBC W/PLT COUNT & AUTO [id number] 11:27:00 Test Item Value Reference Range Interpretation [...] 0-1 PERCENT (BEAKER) (test code = 2801) [id number] 00:00:00 Test Item Value Reference Range Interpretation Comments TSH, THIRD GENERATION (test >100.000 UIU/ML code = 2821) [id number] 00:00:00 Test Item Value Reference Range Interpretation Comments TSH, THIRD GENERATION (test >100.000 UIU/ML code = 2821) [id number] 00:00:00 Test Item Value Reference Range Interpretation Comments TSH, THIRD GENERATION (test >100.000 UIU/ML code = 2821) [id number] 00:00:00 Test Item Value Reference Range Interpretation Comments TSH, THIRD GENERATION (test >100.000 UIU/ML code = 2821) [id number] 00:00:00 Test Item Value Reference Range Interpretation Comments TSH, THIRD GENERATION (test >100.000 UIU/ML code = 2821) [id number] 00:00:00 Test Item Value Reference Range Interpretation Comments TSH, THIRD GENERATION (test >100.000 UIU/ML code = 2821) [id number] 00:00:00 Test Item Value Reference Range Interpretation Comments TSH, THIRD GENERATION (test >100.000 UIU/ML code = 2821) [id number] 00:00:00 Test Item Value Reference Range Interpretation Comments TSH, THIRD GENERATION (test >100.000 UIU/ML code = 2821) [id number] 00:00:00 Test Item Value Reference Range Interpretation Comments TSH, THIRD GENERATION (test >100.000 UIU/ML code = 2821) [id number] 00:00:00 Test Item Value Reference Range Interpretation Comments TSH, THIRD GENERATION (test >100.000 UIU/ML code = 2821) [id number] 00:00:00 Test Item Value Reference Range Interpretation Comments TSH, THIRD GENERATION (test >100.000 UIU/ML code = 2821) [id number] 00:00:00 Test Item Value Reference Range Interpretation Comments TSH, THIRD GENERATION (test >100.000 UIU/ML code = 2821) [id number] 00:00:00 Test Item Value Reference Range Interpretation Comments TSH, THIRD GENERATION (test >100.000 UIU/ML code = 2821) [id number] 00:00:00 Test Item Value Reference Range Interpretation Comments TSH, THIRD GENERATION (test >100.000 UIU/ML code = 2821) [id number] 00:00:00 Test Item Value Reference Range Interpretation Comments TSH, THIRD GENERATION (test >100.000 UIU/ML code = 2821) [id number] 00:00:00 Test Item Value Reference Range Interpretation Comments TSH, THIRD GENERATION (test >100.000 UIU/ML code = 2821) [id number] 00:00:00 Test Item Value Reference Range Interpretation Comments TSH, THIRD GENERATION (test >100.000 UIU/ML code = 2821) [id number] 00:00:00 Test Item Value Reference Range Interpretation Comments TSH, THIRD GENERATION (test >100.000 UIU/ML code = 2821) [id number] 00:00:00 Test Item Value Reference Range Interpretation Comments TSH, THIRD GENERATION (test >100.000 UIU/ML code = 2821) [id number] 00:00:00 Test Item Value Reference Range Interpretation Comments TSH, THIRD GENERATION (test >100.000 UIU/ML code = 2821) [id number] 00:00:00 Test Item Value Reference Range Interpretation Comments TSH, THIRD GENERATION (test >100.000 UIU/ML code = 2821) [id number] 00:00:00 Test Item Value Reference Range Interpretation Comments TSH, THIRD GENERATION (test >100.000 UIU/ML code = 2821) [id number] 00:00:00 Test Item Value Reference Range Interpretation Comments TSH, THIRD GENERATION (test >100.000 UIU/ML code = 2821) LIPID [id number] 00:00:00 Test Item Value Reference Range Interpretation Comments CHOLESTEROL (test code = 2210) 201 MG/DL TRIGLYCERIDES (test code = 2232) 227 MG/DL HDL CHOLESTEROL (test code = 2220) 52 MG/DL CALC LDL CHOL (test code = 2237) 104 MG/DL RISK RATIO LDL/HDL (test code = 1.99 RATIO 2238) LIPID [id number] 00:00:00 Test Item Value Reference Range Interpretation Comments CHOLESTEROL (test code = 2210) 201 MG/DL TRIGLYCERIDES (test code = 2232) 227 MG/DL HDL CHOLESTEROL (test code = 2220) 52 MG/DL CALC LDL CHOL (test code = 2237) 104 MG/DL RISK RATIO LDL/HDL (test code = 1.99 RATIO 2238) [id number] 00:00:00 Test Item Value Reference Range Interpretation Comments TSH, THIRD GENERATION (test >100.000 UIU/ML code = 2821) [id number] 00:00:00 Test Item Value Reference Range Interpretation Comments TSH, THIRD GENERATION (test >100.000 UIU/ML code = 2821) [id number] 00:00:00 Test Item Value Reference Range Interpretation Comments TSH, THIRD GENERATION (test >100.000 UIU/ML code = 2821) LIPID [id number] 00:00:00 Test Item Value Reference Range Interpretation Comments CHOLESTEROL (test code = 2210) 201 MG/DL TRIGLYCERIDES (test code = 2232) 227 MG/DL HDL CHOLESTEROL (test code = 2220) 52 MG/DL CALC LDL CHOL (test code = 2237) 104 MG/DL RISK RATIO LDL/HDL (test code = 1.99 RATIO 2238) LIPID [id number] 00:00:00 Test Item Value Reference Range Interpretation Comments CHOLESTEROL (test code = 2210) 201 MG/DL TRIGLYCERIDES (test code = 2232) 227 MG/DL HDL CHOLESTEROL (test code = 2220) 52 MG/DL CALC LDL CHOL (test code = 2237) 104 MG/DL RISK RATIO LDL/HDL (test code = 1.99 RATIO 2238) [id number] 00:00:00 Test Item Value Reference Range Interpretation Comments TSH, THIRD GENERATION (test >100.000 UIU/ML code = 2821) [id number] 00:00:00 Test Item Value Reference Range Interpretation Comments TSH, THIRD GENERATION (test >100.000 UIU/ML code = 2821) [id number] 00:00:00 Test Item Value Reference Range Interpretation Comments TSH, THIRD GENERATION (test >100.000 UIU/ML code = 2821) LIPID [id number] 00:00:00 Test Item Value Reference Range Interpretation Comments CHOLESTEROL (test code = 2210) 201 MG/DL TRIGLYCERIDES (test code = 2232) 227 MG/DL HDL CHOLESTEROL (test code = 2220) 52 MG/DL CALC LDL CHOL (test code = 2237) 104 MG/DL RISK RATIO LDL/HDL (test code = 1.99 RATIO 2238) LIPID [id number] 00:00:00 Test Item Value Reference Range Interpretation Comments CHOLESTEROL (test code = 2210) 201 MG/DL TRIGLYCERIDES (test code = 2232) 227 MG/DL HDL CHOLESTEROL (test code = 2220) 52 MG/DL CALC LDL CHOL (test code = 2237) 104 MG/DL RISK RATIO LDL/HDL (test code = 1.99 RATIO 2238) LIPID [id number] 00:00:00 Test Item Value Reference Range Interpretation Comments CHOLESTEROL (test code = 2210) 201 MG/DL TRIGLYCERIDES (test code = 2232) 227 MG/DL HDL CHOLESTEROL (test code = 2220) 52 MG/DL CALC LDL CHOL (test code = 2237) 104 MG/DL RISK RATIO LDL/HDL (test code = 1.99 RATIO 2238) [id number] 00:00:00 Test Item Value Reference Range Interpretation Comments TSH, THIRD GENERATION (test >100.000 UIU/ML code = 2821) [id number] 00:00:00 Test Item Value Reference Range Interpretation Comments TSH, THIRD GENERATION (test >100.000 UIU/ML code = 2821) [id number] 00:00:00 Test Item Value Reference Range Interpretation Comments TSH, THIRD GENERATION (test >100.000 UIU/ML code = 2821) [id number] 00:00:00 Test Item Value Reference Range Interpretation Comments TSH, THIRD GENERATION (test >100.000 UIU/ML code = 2821) [id number] 00:00:00 Test Item Value Reference Range Interpretation Comments TSH, THIRD GENERATION (test >100.000 UIU/ML code = 2821) LIPID [id number] 00:00:00 Test Item Value Reference Range Interpretation Comments CHOLESTEROL (test code = 2210) 201 MG/DL TRIGLYCERIDES (test code = 2232) 227 MG/DL HDL CHOLESTEROL (test code = 2220) 52 MG/DL CALC LDL CHOL (test code = 2237) 104 MG/DL RISK RATIO LDL/HDL (test code = 1.99 RATIO 2238) LIPID [id number] 00:00:00 Test Item Value Reference Range Interpretation Comments CHOLESTEROL (test code = 2210) 201 MG/DL TRIGLYCERIDES (test code = 2232) 227 MG/DL HDL CHOLESTEROL (test code = 2220) 52 MG/DL CALC LDL CHOL (test code = 2237) 104 MG/DL RISK RATIO LDL/HDL (test code = 1.99 RATIO 2238) [id number] 00:00:00 Test Item Value Reference Range Interpretation Comments TSH, THIRD GENERATION (test >100.000 UIU/ML code = 2821) [id number] 00:00:00 Test Item Value Reference Range Interpretation Comments TSH, THIRD GENERATION (test >100.000 UIU/ML code = 2821) [id number] 00:00:00 Test Item Value Reference Range Interpretation Comments TSH, THIRD GENERATION (test >100.000 UIU/ML code = 2821) LIPID [id number] 00:00:00 Test Item Value Reference Range Interpretation Comments CHOLESTEROL (test code = 2210) 201 MG/DL TRIGLYCERIDES (test code = 2232) 227 MG/DL HDL CHOLESTEROL (test code = 2220) 52 MG/DL CALC LDL CHOL (test code = 2237) 104 MG/DL RISK RATIO LDL/HDL (test code = 1.99 RATIO 2238) LIPID [id number] 00:00:00 Test Item Value Reference Range Interpretation Comments CHOLESTEROL (test code = 2210) 201 MG/DL TRIGLYCERIDES (test code = 2232) 227 MG/DL HDL CHOLESTEROL (test code = 2220) 52 MG/DL CALC LDL CHOL (test code = 2237) 104 MG/DL RISK RATIO LDL/HDL (test code = 1.99 RATIO 2238) [id number] 00:00:00 Test Item Value Reference Range Interpretation Comments TSH, THIRD GENERATION (test >100.000 UIU/ML code = 2821) [id number] 00:00:00 Test Item Value Reference Range Interpretation Comments TSH, THIRD GENERATION (test >100.000 UIU/ML code = 2821) [id number] 00:00:00 Test Item Value Reference Range Interpretation Comments TSH, THIRD GENERATION (test >100.000 UIU/ML code = 2821) LIPID [id number] 00:00:00 Test Item Value Reference Range Interpretation Comments CHOLESTEROL (test code = 2210) 201 MG/DL TRIGLYCERIDES (test code = 2232) 227 MG/DL HDL CHOLESTEROL (test code = 2220) 52 MG/DL CALC LDL CHOL (test code = 2237) 104 MG/DL RISK RATIO LDL/HDL (test code = 1.99 RATIO 2238) LIPID [id number] 00:00:00 Test Item Value Reference Range Interpretation Comments CHOLESTEROL (test code = 2210) 201 MG/DL TRIGLYCERIDES (test code = 2232) 227 MG/DL HDL CHOLESTEROL (test code = 2220) 52 MG/DL CALC LDL CHOL (test code = 2237) 104 MG/DL RISK RATIO LDL/HDL (test code = 1.99 RATIO 2238) [id number] 00:00:00 Test Item Value Reference Range Interpretation Comments TSH, THIRD GENERATION (test >100.000 UIU/ML code = 2821) [id number] 00:00:00 Test Item Value Reference Range Interpretation Comments TSH, THIRD GENERATION (test >100.000 UIU/ML code = 2821) [id number] 00:00:00 Test Item Value Reference Range Interpretation Comments TSH, THIRD GENERATION (test >100.000 UIU/ML code = 2821) LIPID [id number] 00:00:00 Test Item Value Reference Range Interpretation Comments CHOLESTEROL (test code = 2210) 201 MG/DL TRIGLYCERIDES (test code = 2232) 227 MG/DL HDL CHOLESTEROL (test code = 2220) 52 MG/DL CALC LDL CHOL (test code = 2237) 104 MG/DL RISK RATIO LDL/HDL (test code = 1.99 RATIO 2238) LIPID [id number] 00:00:00 Test Item Value Reference Range Interpretation Comments CHOLESTEROL (test code = 2210) 201 MG/DL TRIGLYCERIDES (test code = 2232) 227 MG/DL HDL CHOLESTEROL (test code = 2220) 52 MG/DL CALC LDL CHOL (test code = 2237) 104 MG/DL RISK RATIO LDL/HDL (test code = 1.99 RATIO 2238) [id number] 00:00:00 Test Item Value Reference Range Interpretation Comments TSH, THIRD GENERATION (test >100.000 UIU/ML code = 2821) [id number] 00:00:00 Test Item Value Reference Range Interpretation Comments TSH, THIRD GENERATION (test >100.000 UIU/ML code = 2821) [id number] 00:00:00 Test Item Value Reference Range Interpretation Comments TSH, THIRD GENERATION (test >100.000 UIU/ML code = 2821) COMPREHENSIVE METABOLIC [id number] 00:00:00 Test Item Value Reference Range Interpretation Comments GLUCOSE (test code = 2217) 103 MG/DL BUN (test code = 2208) 35 MG/DL CREATININE (test code = 2214) 6.37 MG/DL eGFR AMER. (test code 11 ML/MIN/1.73 = 41112) eGFR NON- AMER. (test 9 ML/MIN/1.73 code = 67899) CALC BUN/CREAT (test code = 5 RATIO [...] code = 2219) 10 U/L COMPREHENSIVE METABOLIC [id number] 00:00:00 Test Item Value Reference Range Interpretation Comments GLUCOSE (test code = 2217) 103 MG/DL BUN (test code = 2208) 35 MG/DL CREATININE (test code = 2214) 6.37 MG/DL eGFR AMER. (test code 11 ML/MIN/1.73 = 07019) eGFR NON- AMER. (test 9 ML/MIN/1.73 code = 05880) CALC BUN/CREAT (test code = 5 RATIO [...] (test code = 2219) 10 U/L LIPID [id number] 00:00:00 Test Item Value Reference Range Interpretation Comments CHOLESTEROL (test code = 2210) 240 MG/DL TRIGLYCERIDES (test code = 2232) 395 MG/DL HDL CHOLESTEROL (test code = 2220) 55 MG/DL CALC LDL CHOL (test code = 2237) 106 MG/DL RISK RATIO LDL/HDL (test code = 1.93 RATIO 2238) LIPID [id number] 00:00:00 Test Item Value Reference Range Interpretation Comments CHOLESTEROL (test code = 2210) 240 MG/DL TRIGLYCERIDES (test code = 2232) 395 MG/DL HDL CHOLESTEROL (test code = 2220) 55 MG/DL CALC LDL CHOL (test code = 2237) 106 MG/DL RISK RATIO LDL/HDL (test code = 1.93 RATIO 2238) CBC W/AUTO [id number] 00:00:00 Test Item Value Reference Range Interpretation [...] code = 1015) 327 K/UL CBC W/AUTO [id number] 00:00:00 Test Item Value Reference Range Interpretation [...] code = 1015) 327 K/UL CBC W/AUTO [id number] 00:00:00 Test Item Value Reference Range Interpretation [...] (test code = 1015) 327 K/UL HEMOGLOBIN [id number] 00:00:00 Test Item Value Reference Range Interpretation Comments HEMOGLOBIN A1c (test code = 67980) 6.2 % HEMOGLOBIN [id number] 00:00:00 Test Item Value Reference Range Interpretation Comments HEMOGLOBIN A1c (test code = 30839) 6.2 % HEMOGLOBIN [id number] 00:00:00 Test Item Value Reference Range Interpretation Comments HEMOGLOBIN A1c (test code = 14441) 6.2 % [id number] 00:00:00 Test Item Value Reference Range Interpretation Comments TSH, THIRD GENERATION (test >100.000 UIU/ML code = 2821) [id number] 00:00:00 Test Item Value Reference Range Interpretation Comments TSH, THIRD GENERATION (test >100.000 UIU/ML code = 2821) [id number] 00:00:00 Test Item Value Reference Range Interpretation Comments TSH, THIRD GENERATION (test >100.000 UIU/ML code = 2821) COMPREHENSIVE METABOLIC [id number] 00:00:00 Test Item Value Reference Range Interpretation Comments GLUCOSE (test code = 2217) 103 MG/DL BUN (test code = 2208) 35 MG/DL CREATININE (test code = 2214) 6.37 MG/DL eGFR AMER. (test code 11 ML/MIN/1.73 = 10307) eGFR NON- AMER. (test 9 ML/MIN/1.73 code = 53310) CALC BUN/CREAT (test code = 5 RATIO [...] code = 2219) 10 U/L COMPREHENSIVE METABOLIC [id number] 00:00:00 Test Item Value Reference Range Interpretation Comments GLUCOSE (test code = 2217) 103 MG/DL BUN (test code = 2208) 35 MG/DL CREATININE (test code = 2214) 6.37 MG/DL eGFR AMER. (test code 11 ML/MIN/1.73 = 76840) eGFR NON- AMER. (test 9 ML/MIN/1.73 code = 09421) CALC BUN/CREAT (test code = 5 RATIO [...] (test code = 2219) 10 U/L LIPID [id number] 00:00:00 Test Item Value Reference Range Interpretation Comments CHOLESTEROL (test code = 2210) 240 MG/DL TRIGLYCERIDES (test code = 2232) 395 MG/DL HDL CHOLESTEROL (test code = 2220) 55 MG/DL CALC LDL CHOL (test code = 2237) 106 MG/DL RISK RATIO LDL/HDL (test code = 1.93 RATIO 2238) LIPID [id number] 00:00:00 Test Item Value Reference Range Interpretation Comments CHOLESTEROL (test code = 2210) 240 MG/DL TRIGLYCERIDES (test code = 2232) 395 MG/DL HDL CHOLESTEROL (test code = 2220) 55 MG/DL CALC LDL CHOL (test code = 2237) 106 MG/DL RISK RATIO LDL/HDL (test code = 1.93 RATIO 2238) CBC W/AUTO [id number] 00:00:00 Test Item Value Reference Range Interpretation [...] code = 1015) 327 K/UL CBC W/AUTO [id number] 00:00:00 Test Item Value Reference Range Interpretation [...] code = 1015) 327 K/UL CBC W/AUTO [id number] 00:00:00 Test Item Value Reference Range Interpretation [...] (test code = 1015) 327 K/UL HEMOGLOBIN [id number] 00:00:00 Test Item Value Reference Range Interpretation Comments HEMOGLOBIN A1c (test code = 89412) 6.2 % HEMOGLOBIN [id number] 00:00:00 Test Item Value Reference Range Interpretation Comments HEMOGLOBIN A1c (test code = 37619) 6.2 % HEMOGLOBIN [id number] 00:00:00 Test Item Value Reference Range Interpretation Comments HEMOGLOBIN A1c (test code = 51717) 6.2 % [id number] 00:00:00 Test Item Value Reference Range Interpretation Comments TSH, THIRD GENERATION (test >100.000 UIU/ML code = 2821) [id number] 00:00:00 Test Item Value Reference Range Interpretation Comments TSH, THIRD GENERATION (test >100.000 UIU/ML code = 2821) [id number] 00:00:00 Test Item Value Reference Range Interpretation Comments TSH, THIRD GENERATION (test >100.000 UIU/ML code = 2821) COMPREHENSIVE METABOLIC [id number] 00:00:00 Test Item Value Reference Range Interpretation Comments GLUCOSE (test code = 2217) 103 MG/DL BUN (test code = 2208) 35 MG/DL CREATININE (test code = 2214) 6.37 MG/DL eGFR AMER. (test code 11 ML/MIN/1.73 = 42891) eGFR NON- AMER. (test 9 ML/MIN/1.73 code = 48880) CALC BUN/CREAT (test code = 5 RATIO [...] code = 2219) 10 U/L COMPREHENSIVE METABOLIC [id number] 00:00:00 Test Item Value Reference Range Interpretation Comments GLUCOSE (test code = 2217) 103 MG/DL BUN (test code = 2208) 35 MG/DL CREATININE (test code = 2214) 6.37 MG/DL eGFR AMER. (test code 11 ML/MIN/1.73 = 75063) eGFR NON- AMER. (test 9 ML/MIN/1.73 code = 98607) CALC BUN/CREAT (test code = 5 RATIO [...] (test code = 2219) 10 U/L LIPID [id number] 00:00:00 Test Item Value Reference Range Interpretation Comments CHOLESTEROL (test code = 2210) 240 MG/DL TRIGLYCERIDES (test code = 2232) 395 MG/DL HDL CHOLESTEROL (test code = 2220) 55 MG/DL CALC LDL CHOL (test code = 2237) 106 MG/DL RISK RATIO LDL/HDL (test code = 1.93 RATIO 2238) LIPID [id number] 00:00:00 Test Item Value Reference Range Interpretation Comments CHOLESTEROL (test code = 2210) 240 MG/DL TRIGLYCERIDES (test code = 2232) 395 MG/DL HDL CHOLESTEROL (test code = 2220) 55 MG/DL CALC LDL CHOL (test code = 2237) 106 MG/DL RISK RATIO LDL/HDL (test code = 1.93 RATIO 2238) COMPREHENSIVE METABOLIC [id number] 00:00:00 Test Item Value Reference Range Interpretation Comments GLUCOSE (test code = 2217) 103 MG/DL BUN (test code = 2208) 35 MG/DL CREATININE (test code = 2214) 6.37 MG/DL eGFR AMER. (test code 11 ML/MIN/1.73 = 40079) eGFR NON- AMER. (test 9 ML/MIN/1.73 code = 33024) CALC BUN/CREAT (test code = 5 RATIO [...] code = 2219) 10 U/L CBC W/AUTO [id number] 00:00:00 Test Item Value Reference Range Interpretation [...] (test code = 1015) 327 K/UL LIPID [id number] 00:00:00 Test Item Value Reference Range Interpretation Comments CHOLESTEROL (test code = 2210) 240 MG/DL TRIGLYCERIDES (test code = 2232) 395 MG/DL HDL CHOLESTEROL (test code = 2220) 55 MG/DL CALC LDL CHOL (test code = 2237) 106 MG/DL RISK RATIO LDL/HDL (test code = 1.93 RATIO 2238) CBC W/AUTO [id number] 00:00:00 Test Item Value Reference Range Interpretation [...] code = 1015) 327 K/UL CBC W/AUTO [id number] 00:00:00 Test Item Value Reference Range Interpretation [...] (test code = 1015) 327 K/UL HEMOGLOBIN [id number] 00:00:00 Test Item Value Reference Range Interpretation Comments HEMOGLOBIN A1c (test code = 96005) 6.2 % HEMOGLOBIN [id number] 00:00:00 Test Item Value Reference Range Interpretation Comments HEMOGLOBIN A1c (test code = 88537) 6.2 % HEMOGLOBIN [id number] 00:00:00 Test Item Value Reference Range Interpretation Comments HEMOGLOBIN A1c (test code = 15158) 6.2 % [id number] 00:00:00 Test Item Value Reference Range Interpretation Comments TSH, THIRD GENERATION (test >100.000 UIU/ML code = 2821) [id number] 00:00:00 Test Item Value Reference Range Interpretation Comments TSH, THIRD GENERATION (test >100.000 UIU/ML code = 2821) [id number] 00:00:00 Test Item Value Reference Range Interpretation Comments TSH, THIRD GENERATION (test >100.000 UIU/ML code = 2821) CBC W/AUTO [id number] 00:00:00 Test Item Value Reference Range Interpretation [...] code = 1015) 327 K/UL CBC W/AUTO [id number] 00:00:00 Test Item Value Reference Range Interpretation [...] (test code = 1015) 327 K/UL HEMOGLOBIN [id number] 00:00:00 Test Item Value Reference Range Interpretation Comments HEMOGLOBIN A1c (test code = 88880) 6.2 % HEMOGLOBIN [id number] 00:00:00 Test Item Value Reference Range Interpretation Comments HEMOGLOBIN A1c (test code = 35931) 6.2 % COMPREHENSIVE METABOLIC [id number] 00:00:00 Test Item Value Reference Range Interpretation Comments GLUCOSE (test code = 2217) 103 MG/DL BUN (test code = 2208) 35 MG/DL CREATININE (test code = 2214) 6.37 MG/DL eGFR AMER. (test code 11 ML/MIN/1.73 = 42423) eGFR NON- AMER. (test 9 ML/MIN/1.73 code = 90202) CALC BUN/CREAT (test code = 5 RATIO [...] code = 2219) 10 U/L COMPREHENSIVE METABOLIC [id number] 00:00:00 Test Item Value Reference Range Interpretation Comments GLUCOSE (test code = 2217) 103 MG/DL BUN (test code = 2208) 35 MG/DL CREATININE (test code = 2214) 6.37 MG/DL eGFR AMER. (test code 11 ML/MIN/1.73 = 71348) eGFR NON- AMER. (test 9 ML/MIN/1.73 code = 86652) CALC BUN/CREAT (test code = 5 RATIO [...] ALT (test code = 2219) 10 U/L [id number] 00:00:00 Test Item Value Reference Range Interpretation Comments TSH, THIRD GENERATION (test >100.000 UIU/ML code = 2821) [id number] 00:00:00 Test Item Value Reference Range Interpretation Comments TSH, THIRD GENERATION (test >100.000 UIU/ML code = 2821) LIPID [id number] 00:00:00 Test Item Value Reference Range Interpretation Comments CHOLESTEROL (test code = 2210) 240 MG/DL TRIGLYCERIDES (test code = 2232) 395 MG/DL HDL CHOLESTEROL (test code = 2220) 55 MG/DL CALC LDL CHOL (test code = 2237) 106 MG/DL RISK RATIO LDL/HDL (test code = 1.93 RATIO 2238) LIPID [id number] 00:00:00 Test Item Value Reference Range Interpretation Comments CHOLESTEROL (test code = 2210) 240 MG/DL TRIGLYCERIDES (test code = 2232) 395 MG/DL HDL CHOLESTEROL (test code = 2220) 55 MG/DL CALC LDL CHOL (test code = 2237) 106 MG/DL RISK RATIO LDL/HDL (test code = 1.93 RATIO 2238) CBC W/AUTO [id number] 00:00:00 Test Item Value Reference Range Interpretation [...] code = 1015) 327 K/UL CBC W/AUTO [id number] 00:00:00 Test Item Value Reference Range Interpretation [...] code = 1015) 327 K/UL CBC W/AUTO [id number] 00:00:00 Test Item Value Reference Range Interpretation [...] (test code = 1015) 327 K/UL HEMOGLOBIN [id number] 00:00:00 Test Item Value Reference Range Interpretation Comments HEMOGLOBIN A1c (test code = 07180) 6.2 % HEMOGLOBIN [id number] 00:00:00 Test Item Value Reference Range Interpretation Comments HEMOGLOBIN A1c (test code = 32721) 6.2 % HEMOGLOBIN [id number] 00:00:00 Test Item Value Reference Range Interpretation Comments HEMOGLOBIN A1c (test code = 92875) 6.2 % [id number] 00:00:00 Test Item Value Reference Range Interpretation Comments TSH, THIRD GENERATION (test >100.000 UIU/ML code = 2821) [id number] 00:00:00 Test Item Value Reference Range Interpretation Comments TSH, THIRD GENERATION (test >100.000 UIU/ML code = 2821) [id number] 00:00:00 Test Item Value Reference Range Interpretation Comments TSH, THIRD GENERATION (test >100.000 UIU/ML code = 2821) COMPREHENSIVE METABOLIC [id number] 00:00:00 Test Item Value Reference Range Interpretation Comments GLUCOSE (test code = 2217) 103 MG/DL BUN (test code = 2208) 35 MG/DL CREATININE (test code = 2214) 6.37 MG/DL eGFR AMER. (test code 11 ML/MIN/1.73 = 09490) eGFR NON- AMER. (test 9 ML/MIN/1.73 code = 95251) CALC BUN/CREAT (test code = 5 RATIO [...] code = 2219) 10 U/L COMPREHENSIVE METABOLIC [id number] 00:00:00 Test Item Value Reference Range Interpretation Comments GLUCOSE (test code = 2217) 103 MG/DL BUN (test code = 2208) 35 MG/DL CREATININE (test code = 2214) 6.37 MG/DL eGFR AMER. (test code 11 ML/MIN/1.73 = 15633) eGFR NON- AMER. (test 9 ML/MIN/1.73 code = 06069) CALC BUN/CREAT (test code = 5 RATIO [...] (test code = 2219) 10 U/L LIPID [id number] 00:00:00 Test Item Value Reference Range Interpretation Comments CHOLESTEROL (test code = 2210) 240 MG/DL TRIGLYCERIDES (test code = 2232) 395 MG/DL HDL CHOLESTEROL (test code = 2220) 55 MG/DL CALC LDL CHOL (test code = 2237) 106 MG/DL RISK RATIO LDL/HDL (test code = 1.93 RATIO 2238) LIPID [id number] 00:00:00 Test Item Value Reference Range Interpretation Comments CHOLESTEROL (test code = 2210) 240 MG/DL TRIGLYCERIDES (test code = 2232) 395 MG/DL HDL CHOLESTEROL (test code = 2220) 55 MG/DL CALC LDL CHOL (test code = 2237) 106 MG/DL RISK RATIO LDL/HDL (test code = 1.93 RATIO 2238) CBC W/AUTO [id number] 00:00:00 Test Item Value Reference Range Interpretation [...] code = 1015) 327 K/UL CBC W/AUTO [id number] 00:00:00 Test Item Value Reference Range Interpretation [...] code = 1015) 327 K/UL CBC W/AUTO [id number] 00:00:00 Test Item Value Reference Range Interpretation [...] (test code = 1015) 327 K/UL HEMOGLOBIN [id number] 00:00:00 Test Item Value Reference Range Interpretation Comments HEMOGLOBIN A1c (test code = 54277) 6.2 % HEMOGLOBIN [id number] 00:00:00 Test Item Value Reference Range Interpretation Comments HEMOGLOBIN A1c (test code = 37161) 6.2 % HEMOGLOBIN [id number] 00:00:00 Test Item Value Reference Range Interpretation Comments HEMOGLOBIN A1c (test code = 54022) 6.2 % [id number] 00:00:00 Test Item Value Reference Range Interpretation Comments TSH, THIRD GENERATION (test >100.000 UIU/ML code = 2821) [id number] 00:00:00 Test Item Value Reference Range Interpretation Comments TSH, THIRD GENERATION (test >100.000 UIU/ML code = 2821) [id number] 00:00:00 Test Item Value Reference Range Interpretation Comments TSH, THIRD GENERATION (test >100.000 UIU/ML code = 2821) COMPREHENSIVE METABOLIC [id number] 00:00:00 Test Item Value Reference Range Interpretation Comments GLUCOSE (test code = 2217) 103 MG/DL BUN (test code = 2208) 35 MG/DL CREATININE (test code = 2214) 6.37 MG/DL eGFR AMER. (test code 11 ML/MIN/1.73 = 33506) eGFR NON- AMER. (test 9 ML/MIN/1.73 code = 99065) CALC BUN/CREAT (test code = 5 RATIO [...] ALKALINE PHOSPHATASE (test 58 U/L code = 220) AST (test code = 2218) 10 U/L ALT (test code = 2219) 10 U/L COMPREHENSIVE METABOLIC [id number] 00:00:00 Test Item Value Reference Range Interpretation Comments GLUCOSE (test code = 2217) 103 MG/DL BUN (test code = 2208) 35 MG/DL CREATININE (test code = 2214) 6.37 MG/DL eGFR AMER. (test code 11 ML/MIN/1.73 = 61057) eGFR NON- AMER. (test 9 ML/MIN/1.73 code = 29108) CALC BUN/CREAT (test code = 5 RATIO [...] (test code = 2219) 10 U/L LIPID [id number] 00:00:00 Test Item Value Reference Range Interpretation Comments CHOLESTEROL (test code = 2210) 240 MG/DL TRIGLYCERIDES (test code = 2232) 395 MG/DL HDL CHOLESTEROL (test code = 2220) 55 MG/DL CALC LDL CHOL (test code = 2237) 106 MG/DL RISK RATIO LDL/HDL (test code = 1.93 RATIO 2238) LIPID [id number] 00:00:00 Test Item Value Reference Range Interpretation Comments CHOLESTEROL (test code = 2210) 240 MG/DL TRIGLYCERIDES (test code = 2232) 395 MG/DL HDL CHOLESTEROL (test code = 2220) 55 MG/DL CALC LDL CHOL (test code = 2237) 106 MG/DL RISK RATIO LDL/HDL (test code = 1.93 RATIO 2238) CBC W/AUTO [id number] 00:00:00 Test Item Value Reference Range Interpretation [...] code = 1015) 327 K/UL CBC W/AUTO [id number] 00:00:00 Test Item Value Reference Range Interpretation [...] code = 1015) 327 K/UL CBC W/AUTO [id number] 00:00:00 Test Item Value Reference Range Interpretation [...] (test code = 1015) 327 K/UL HEMOGLOBIN [id number] 00:00:00 Test Item Value Reference Range Interpretation Comments HEMOGLOBIN A1c (test code = 19474) 6.2 % HEMOGLOBIN [id number] 00:00:00 Test Item Value Reference Range Interpretation Comments HEMOGLOBIN A1c (test code = 35566) 6.2 % HEMOGLOBIN [id number] 00:00:00 Test Item Value Reference Range Interpretation Comments HEMOGLOBIN A1c (test code = 14390) 6.2 % [id number] 00:00:00 Test Item Value Reference Range Interpretation Comments TSH, THIRD GENERATION (test >100.000 UIU/ML code = 2821) [id number] 00:00:00 Test Item Value Reference Range Interpretation Comments TSH, THIRD GENERATION (test >100.000 UIU/ML code = 2821) [id number] 00:00:00 Test Item Value Reference Range Interpretation Comments TSH, THIRD GENERATION (test >100.000 UIU/ML code = 2821) COMPREHENSIVE METABOLIC [id number] 00:00:00 Test Item Value Reference Range Interpretation Comments GLUCOSE (test code = 2217) 103 MG/DL BUN (test code = 2208) 35 MG/DL CREATININE (test code = 2214) 6.37 MG/DL eGFR AMER. (test code 11 ML/MIN/1.73 = 01715) eGFR NON- AMER. (test 9 ML/MIN/1.73 code = 84103) CALC BUN/CREAT (test code = 5 RATIO [...] code = 2219) 10 U/L COMPREHENSIVE METABOLIC [id number] 00:00:00 Test Item Value Reference Range Interpretation Comments GLUCOSE (test code = 2217) 103 MG/DL BUN (test code = 2208) 35 MG/DL CREATININE (test code = 2214) 6.37 MG/DL eGFR AMER. (test code 11 ML/MIN/1.73 = 48462) eGFR NON- AMER. (test 9 ML/MIN/1.73 code = 24930) CALC BUN/CREAT (test code = 5 RATIO [...] (test code = 2219) 10 U/L LIPID [id number] 00:00:00 Test Item Value Reference Range Interpretation Comments CHOLESTEROL (test code = 2210) 240 MG/DL TRIGLYCERIDES (test code = 2232) 395 MG/DL HDL CHOLESTEROL (test code = 2220) 55 MG/DL CALC LDL CHOL (test code = 2237) 106 MG/DL RISK RATIO LDL/HDL (test code = 1.93 RATIO 2238) LIPID [id number] 00:00:00 Test Item Value Reference Range Interpretation Comments CHOLESTEROL (test code = 2210) 240 MG/DL TRIGLYCERIDES (test code = 2232) 395 MG/DL HDL CHOLESTEROL (test code = 2220) 55 MG/DL CALC LDL CHOL (test code = 2237) 106 MG/DL RISK RATIO LDL/HDL (test code = 1.93 RATIO 2238) CBC W/AUTO [id number] 00:00:00 Test Item Value Reference Range Interpretation [...] code = 1015) 327 K/UL CBC W/AUTO [id number] 00:00:00 Test Item Value Reference Range Interpretation [...] code = 1015) 327 K/UL CBC W/AUTO [id number] 00:00:00 Test Item Value Reference Range Interpretation [...] (test code = 1015) 327 K/UL HEMOGLOBIN [id number] 00:00:00 Test Item Value Reference Range Interpretation Comments HEMOGLOBIN A1c (test code = 30525) 6.2 % HEMOGLOBIN [id number] 00:00:00 Test Item Value Reference Range Interpretation Comments HEMOGLOBIN A1c (test code = 58723) 6.2 % HEMOGLOBIN [id number] 00:00:00 Test Item Value Reference Range Interpretation Comments HEMOGLOBIN A1c (test code = 50491) 6.2 % [id number] 00:00:00 Test Item Value Reference Range Interpretation Comments TSH, THIRD GENERATION (test >100.000 UIU/ML code = 2821) [id number] 00:00:00 Test Item Value Reference Range Interpretation Comments TSH, THIRD GENERATION (test >100.000 UIU/ML code = 2821) [id number] 00:00:00 Test Item Value Reference Range Interpretation Comments TSH, THIRD GENERATION (test >100.000 UIU/ML code = 2821)
[2022-09-23 06:37] LABS: Absolute Lymphocytes (CBC) 0.5 K/uL (0.7-4.9); Hematocrit 31.3 % (39.6-49.0); Lymphocytes % 6.2 % (15.3-44.8); MPV 7.3 fL (7.6-11.3); RBC Red Blood Cell Count 3.26 M/uL (4.33-5.43)
[2022-09-23 06:44] LABS: Protime INR 0.92
[2022-09-23 06:56] LABS: ALT/SGPT 15 U/L (16-61); AST/SGOT 15 U/L (15-37); Alkaline Phosphatase 68 U/L (45-117); BUN Blood Urea Nitrogen 81 mg/dL (7-18); Bicarbonate 23 mEq/L (21-32); Bilirubin Total 0.8 mg/dL (0.2-1.0); Creatine Phosphokinase 204 U/L (39-308); Glomerular Filtration Rate 4 ml/min (=/>90); Glucose Level 149 mg/dL (74-106); Lipase 84 U/L (13-75); Magnesium 2.2 mg/dL (1.6-2.4); NT PRO-BNP 9575 pg/mL (<125); Protein, Total 8.4 g/dL (6.4-8.2); Sodium Level 135 mEq/L (136-145); Troponin High Sensitivity 25.1 pg/mL (<58.9)
[2022-09-23 06:57] LABS: Bilirubin Direct < 0.1 mg/dL (0-0.2); Bilirubin Indirect, Calculated ND mg/dL (0.2-0.8)
[2022-09-23] MEDS ORDERED: ACYCLOVIR 400 MG TABLET ONE (07:54)
--- NOTE | 2022-09-23 08:03 | ER ---
Nurse's Notes [facility] Name: Alejandro Dunbar Age: 57 yrs Sex: Male : 1965 Arrival Date: 09/23/2022 Time: 05:53 Bed 8 Private MD: Diagnosis: Acute shingles left truncal location. End-stage renal disease on hemodialysis. Acute uremia. Acute volume overload. Dyspnea on exertion. Oxygen dependent.;Herpesviral vesicular dermatitis Presentation: 09/23 06:02 Chief complaint: Patient states: went to dialysis and they would not dialyze me because kl they say i have shingle raised vesicles noted to left abdomen. 06:19 Coronavirus screen: At this time, the client does not indicate any symptoms associated jb4 with coronavirus-19. Ebola Screen: No symptoms or risks identified at this time. Initial Sepsis Screen: Does the patient meet any 2 criteria? No. Patient's initial sepsis screen is negative. Does the patient have a suspected source of infection? No. Patient's initial sepsis screen is negative. Risk Assessment: Do you want to hurt yourself or someone else? Patient reports no desire to harm self or others. Onset of symptoms was September 23, 2022. Transition of care: patient was not received from another setting of care. 06:19 Method Of Arrival: Ambulatory jb4 06:19 Acuity: KERRI 3 jb4 Historical: - Allergies: 06:21 No Known Allergies; jb4 - PMHx: 06:21 Diabetes - NIDDM; High Cholesterol; Hypertension; Dialysis; Hypothyroidism; jb4 - PSHx: 06:21 tracheostomy; jb4 - Immunization history:: Adult Immunizations up to date. - Social history:: Smoking status: Patient denies any tobacco usage or history of. - Family history:: not pertinent. Screenin:32 [facility] ED Fall Risk Assessment (Adult) History of falling in the last 3 months, jb4 including since admission No falls in past 3 months (0 pts) Confusion or Disorientation No (0 pts) Score/Fall Risk Level 0 - 2 = Low Risk Oriented to surroundings, Maintained a safe environment. Abuse screen: Denies threats or abuse. Nutritional screening: No deficits noted. Tuberculosis screening: No symptoms or risk factors identified. Assessment: 06:32 General: Appears in no apparent distress. comfortable, Behavior is calm, cooperative, jb4 appropriate for age. Pain: Denies pain. Neuro: Level of Consciousness is awake, alert, obeys commands, Oriented to person, place, time, situation. Cardiovascular: Patient's skin is warm and dry. Respiratory: Airway is patent Respiratory effort is even, unlabored, Respiratory pattern is regular, symmetrical. GI: No signs and/or symptoms were reported involving the gastrointestinal system. : No signs and/or symptoms were reported regarding the genitourinary system. EENT: No signs and/or symptoms were reported regarding the EENT system. Derm: Skin is intact, Skin is pink, warm \T\ dry. Rash noted that is red, raised, vesicular, on anterior aspect of left lateral abdomen. Musculoskeletal: Circulation, motion, and sensation intact. Range of motion: intact in all extremities. 07:00 Reassessment: Patient appears in no apparent distress at this time. No changes from kc6 previously documented assessment. Patient and/or family updated on plan of care and expected duration. Pain level reassessed. Patient is alert, oriented x 3, equal unlabored respirations, skin warm/dry/pink. 08:05 Reassessment: Patient appears in no apparent distress at this time. No changes from kc6 previously documented assessment. Patient and/or family updated on plan of care and expected duration. Pain level reassessed. Patient is alert, oriented x 3, equal unlabored respirations, skin warm/dry/pink. 09:05 Reassessment: Patient appears in no apparent distress at this time. No changes from kc6 previously documented assessment. Patient and/or family updated on plan of care and expected duration. Pain level reassessed. Patient is alert, oriented x 3, equal unlabored respirations, skin warm/dry/pink. 10:05 Reassessment: Patient appears in no apparent distress at this time. No changes from kc6 previously documented assessment. Patient and/or family updated on plan of care and expected duration. Pain level reassessed. Patient is alert, oriented x 3, equal unlabored respirations, skin warm/dry/pink. 10:30 Reassessment: please see [facility] for further charting. kc6 10:30 Respiratory: Breath sounds are coarse bilaterally. bp 10:30 Cardiovascular: Rhythm is sinus rhythm. bp Vital Signs: 06:19 BP 137 / 81; Pulse 79; Resp 20; Temp 97.8(TE); Pulse Ox 95% on R/A; Weight 78.93 kg jb4 (R); Height 5 ft. 4 in. (R); Pain 0/10; 07:20 BP 164 / 82; Pulse 72; Resp 19 S; Pulse Ox 94% on R/A; kc6 08:07 BP 162 / 75; Pulse 76; Resp 17 S; Pulse Ox 97% on R/A; kc6 09:06 BP 175 / 89; Pulse 77; Resp 19; Pulse Ox 97% on R/A; kc6 11:00 BP 166 / 84; Pulse 76; Resp 16; Pulse Ox 96% ; bp 06:19 Body Mass Index 29.87 (78.93 kg, 162.56 cm) jb4 06:19 Pain Scale: Adult jb4 ED Course: 05:55 Patient arrived in ED. ja2 05:59 Jacob Da Silva MD is Attending Physician. sp4 06:02 Cassie Islas, SANJAY is Primary Nurse. kd3 06:21 Triage completed. jb4 06:21 Arm band placed on right wrist. jb4 06:30 BMP Sent. kd3 06:30 CBC with Diff Sent. kd3 06:30 CPK Sent. kd3 06:30 Hepatic Function Sent. kd3 06:30 Lipase Sent. kd3 06:30 Magnesium Sent. kd3 06:30 NT PRO-BNP Sent. kd3 06:30 PT-INR Sent. kd3 06:30 Ptt, Activated Sent. kd3 06:30 Troponin HS Sent. kd3 06:30 Inserted saline lock: 22 gauge in right forearm, using aseptic technique. Blood kd3 collected. 06:32 Patient has correct armband on for positive identification. Bed in low position. Call jb4 light in reach. Side rails up X 1. Client placed on continuous cardiac and pulse oximetry monitoring. NIBP monitoring applied. clinical research monitor on. 06:36 XRAY CXR (1 view) In Process Unspecified. EDMS 07:00 Report received from SANJAY Olguin. kc6 08:01 Nikko Churchill MD is Hospitalizing Provider. sp4 12:48 No provider procedures requiring assistance completed. Patient admitted, IV remains in bp place. Administered Medications: 07:49 Drug: Acyclovir PO 800 mg Route: PO; bp 08:57 Follow up: Response: No adverse reaction kc6 Medication: 06:32 VIS not applicable for this client. jb4 Outcome: 08:03 Decision to Hospitalize by Provider. spWanda 12:47 Admitted to Med/surg accompanied by tech, via wheelchair, room 417, with chart, Report bp called to SHREYA GRACE 12:47 Condition: stable 12:47 Instructed on the need for admit. 13:08 Patient left the ED. kc6 Signatures: Dispatcher [employer] Dede Hamm, RN RN Mauri Milan RN RN jb4 Saurabh Quiroz RN RN Eleni Bourgeois Kyli, RN RN kd3 Marilin Valdivia RN RN kc6 Jacob Da Silva MD MD sp4
--- NOTE | 2022-09-23 08:04 | EDPHYS ---
Physician Documentation [facility] Name: Alejandro Dunbar Age: 57 yrs Sex: Male : 1965 Arrival Date: 09/23/2022 Time: 05:53 Bed 8 Private MD: ED Physician Jacob Da Silva HPI: 09/23 07:59 This 57 yrs old Male presents to ER via Ambulatory with complaints of Rash, sp4 Breathing Difficulty. 07:59 Patient is a 57-year-old male with past medical history of end-stage renal disease on sp4 hemodialysis Wednesday. Hypothyroidism, diabetes mellitus type 2, hypertension, respiratory failure, hyperkalemia, hypothyroidism, presents to the emergency room with dyspnea, and acute onset left truncal rash. Patient was at his dialysis unit this morning but they have refused to dialyze him secondary to acute onset of truncal rash consistent with shingles. Patient is here desiring hemodialysis.. Historical: - Allergies: 06:21 No Known Allergies; jb4 - PMHx: 06:21 Diabetes - NIDDM; High Cholesterol; Hypertension; Dialysis; Hypothyroidism; jb4 - PSHx: 06:21 tracheostomy; jb4 - Immunization history:: Adult Immunizations up to date. - Social history:: Smoking status: Patient denies any tobacco usage or history of. - Family history:: not pertinent. ROS: 07:49 Constitutional: Negative for fever, chills, and weight loss, Eyes: Negative for injury, sp4 pain, redness, and discharge, ENT: Negative for injury, pain, and discharge, Neck: Negative for injury, pain, and swelling, Cardiovascular: Negative for chest pain, palpitations, and edema. 07:51 Respiratory: Negative for cough, wheezing, and pleuritic chest pain, Abdomen/GI: sp4 Negative for abdominal pain, nausea, vomiting, diarrhea, and constipation, Back: Negative for injury and pain, : Negative for injury, bleeding, discharge, and swelling, MS/Extremity: Negative for injury and deformity, Skin: Negative for injury, rash, and discoloration, Neuro: Negative for headache, weakness, numbness, tingling, and seizure, Psych: Negative for depression, anxiety, Allergy/Immunology: Negative for hives, rash, and allergies Endocrine: Negative for neck swelling, polydipsia, polyuria, polyphagia, and weight changes Hematologic/Lymphatic: Negative for swollen nodes, abnormal bleeding, and unusual bruising Exam: 07:51 Constitutional: This is a well developed, well nourished patient who is awake, alert, sp4 ill-appearing physically debilitated male, oxygen dependent, left arm dialysis fistula has palpable thrill Head/Face: Normocephalic, atraumatic. Eyes: Pupils equal round and reactive to light, extra-ocular motions intact. Lids and lashes normal. Conjunctiva and sclera are not injected. Cornea within normal limits. Periorbital areas with no swelling, redness, or edema. ENT: Nares patent. No nasal discharge, no septal abnormalities noted. Tympanic membranes are normal and external auditory canals are clear. Oropharynx with no redness, swelling, or masses, exudates, or evidence of obstruction, uvula midline. Mucous membranes moist. Neck: Trachea midline, no thyromegaly or masses palpated, and no cervical lymphadenopathy. Supple, full range of motion without nuchal rigidity, or vertebral point tenderness. No Meningismus. Chest/axilla: Normal chest wall appearance and motion. Nontender with no deformity. No lesions are appreciated. Cardiovascular: Regular rate and rhythm with a normal S1 and S2. No gallops, murmurs, or rubs. Normal PMI, no JVD. No pulse deficits. Respiratory: Lungs have equal breath sounds bilaterally, clear to auscultation and percussion. No rales, rhonchi or wheezes noted. No increased work of breathing, no retractions or nasal flaring. Abdomen/GI: Soft, non-tender, with normal bowel sounds. No distension or tympany. No guarding or rebound. No evidence of tenderness throughout. Back: No spinal tenderness. No costovertebral tenderness. Skin: Warm, dry with normal turgor. Left truncal rash in dermatomal distribution with vesicular component consistent with acute shingles. MS/ Extremity: Pulses equal, no cyanosis. Neurovascular intact. Full, normal range of motion. Neuro: Awake and alert, GCS 15, oriented to person, place, time, and situation. Cranial nerves II-XII grossly intact. Motor strength 5/5 in all extremities. Sensory grossly intact. Psych: Awake, alert, with orientation to person, place and time. Behavior, mood, and affect are within normal limits 07:51 ECG was reviewed by the Attending Physician. EKG at 6:25 AM normal sinus rhythm at a sp4 rate of 77, overall normal EKG Vital Signs: 06:19 BP 137 / 81; Pulse 79; Resp 20; Temp 97.8(TE); Pulse Ox 95% on R/A; Weight 78.93 kg jb4 (R); Height 5 ft. 4 in. (R); Pain 0/10; 07:20 BP 164 / 82; Pulse 72; Resp 19 S; Pulse Ox 94% on R/A; kc6 08:07 BP 162 / 75; Pulse 76; Resp 17 S; Pulse Ox 97% on R/A; kc6 09:06 BP 175 / 89; Pulse 77; Resp 19; Pulse Ox 97% on R/A; kc6 11:00 BP 166 / 84; Pulse 76; Resp 16; Pulse Ox 96% ; bp 06:19 Body Mass Index 29.87 (78.93 kg, 162.56 cm) jb4 06:19 Pain Scale: Adult jb4 MDM: 06:00 Patient medically screened. sp4 07:51 Differential diagnosis: impetigo, varicella, allergic reaction, parasite infection, sp4 Acute shingles. Data reviewed: vital signs, nurses notes, old medical records, lab test result(s), EKG, radiologic studies, plain films. Consideration of Admission/Observation Patient was admitted/placed on observation. Escalation of care including admission/observation considered. Management of patient was discussed with the following: Hospitalist: Patient discussed with admitting team also discussed with crusher plant operator. ED course: Chest x-ray revealed overall cardiomegaly and decreased inspiration with left basilar atelectasis. EKG is unremarkable. Labs reveal uremia. Elevated creatinine. And acidosis. Troponin is negative . ED course: Patient has past medical history of pulmonary edema, respiratory failure, type 2 diabetes, end-stage renal disease, hypothyroidism, on dialysis every Wednesday. He has dialysis today would not dialyze him because of his acute shingles to the left side. 08:00 ED course: Patient was discussed with admitting hospitalist also with crusher plant operator as sp4 well. Patient warrants admission for inpatient dialysis. 09/23 06:00 Order name: BMP; Complete Time: 07:42 sp4 09/23 06:00 Order name: CBC with Diff; Complete Time: 07:42 sp4 09/23 06:00 Order name: CPK; Complete Time: 07:42 sp4 09/23 06:00 Order name: Hepatic Function; Complete Time: 07:42 sp4 09/23 06:00 Order name: Lipase; Complete Time: 07:42 sp4 09/23 06:00 Order name: Magnesium; Complete Time: 07:42 sp4 09/23 06:00 Order name: NT PRO-BNP; Complete Time: 07:42 sp4 09/23 06:00 Order name: PT-INR; Complete Time: 07:42 sp4 09/23 06:00 Order name: Ptt, Activated; Complete Time: 07:42 sp4 09/23 06:00 Order name: Troponin HS; Complete Time: 07:42 sp4 09/23 10:49 Order name: Magnesium [facility] 09/23 10:50 Order name: Phosphorus [facility] 09/23 11:21 Order name: Hemoglobin A1c [facility] 09/23 11:52 Order name: Glucose, Ancillary Testing [facility] 09/23 06:00 Order name: XRAY CXR (1 view) [facility] 09/23 06:00 Order name: EKG; Complete Time: 06:01 4 09/23 10:01 Order name: Dietitian Consult [facility] 09/23 10:01 Order name: Renal [facility] 09/23 06:00 Order name: Cardiac monitoring; Complete Time: 06:29 sp4 09/23 06:00 Order name: EKG - Nurse/Tech; Complete Time: 06:29 4 09/23 06:00 Order name: IV Saline Lock; Complete Time: 06:29 sp4 09/23 06:00 Order name: Labs collected and sent; Complete Time: 06:29 sp4 09/23 06:00 Order name: O2 Per Protocol; Complete Time: 06:29 sp4 09/23 06:00 Order name: O2 Sat Monitoring; Complete Time: 06:29 sp4 EC:51 Rate is 77 beats/min. Rhythm is regular, Normal Sinus Rhythm. QRS [place] is Normal. [place] sp4 interval is normal. QRS interval is normal. QT interval is normal. T waves are Normal. No ST changes noted. Clinical impression: Normal ECG. Interpreted by me. Administered Medications: 07:49 Drug: Acyclovir PO 800 mg Route: PO; bp 08:57 Follow up: Response: No adverse reaction kc6 Disposition Summary: 09/23/22 08:03 Hospitalization Ordered Hospitalization Status: Observation sp4 Provider: Nikko Churchill sp4 Location: Telemetry/MedSurg (observation) sp4 Condition: Stable sp4 Problem: new sp4 Symptoms: are unchanged sp4 Bed/Room Type: Standard sp4 Room Assignment: 417(09/23/22 12:41) bd Diagnosis - Acute shingles left truncal location. End-stage renal disease on hemodialysis. sp4 Acute uremia. Acute volume overload. Dyspnea on exertion. Oxygen dependent. - Herpesviral vesicular dermatitis sp4 Forms: - Medication Reconciliation Form sp4 - SBAR form sp4 Signatures: Dispatcher [employer] EDMS Earline Wiley James, RN RN jb4 Saurabh Quiroz RN RN bp Potepalov, Sergey, MD MD sp4 Marilin Valdivia RN kc6 Corrections: (The following items were deleted from the chart) 06:34 06:00 BLOOD CULTURE*+[id number].LAB.BRZ ordered. EDMO EDMS 08:00 07:51 Constitutional: This is a well developed, well nourished patient who is awake, sp4 alert, ill-appearing physically debilitated male, oxygen dependent, left arm dialysis fistula has palpable thrill Head/Face: Normocephalic, atraumatic. Eyes: Pupils equal round and reactive to light, extra-ocular motions intact. Lids and lashes normal. Conjunctiva and sclera are not injected. Cornea within normal limits. Periorbital areas with no swelling, redness, or edema. ENT: Nares patent. No nasal discharge, no septal abnormalities noted. Tympanic membranes are normal and external auditory canals are clear. Oropharynx with no redness, swelling, or masses, exudates, or evidence of obstruction, uvula midline. Mucous membranes moist. Neck: Trachea midline, no thyromegaly or masses palpated, and no cervical lymphadenopathy. Supple, full range of motion without nuchal rigidity, or vertebral point tenderness. No Meningismus. Chest/axilla: Normal chest wall appearance and motion. Nontender with no deformity. No lesions are appreciated. Cardiovascular: Regular rate and rhythm with a normal S1 and S2. No gallops, murmurs, or rubs. Normal PMI, no JVD. No pulse deficits. Respiratory: Lungs have equal breath sounds bilaterally, clear to auscultation and percussion. No rales, rhonchi or wheezes noted. No increased work of breathing, no retractions or nasal flaring. Abdomen/GI: Soft, non-tender, with normal bowel sounds. No distension or tympany. No guarding or rebound. No evidence of tenderness throughout. Back: No spinal tenderness. No costovertebral tenderness. Skin: Warm, dry with normal turgor. Normal color with no rashes, no lesions, and no evidence of cellulitis. MS/ Extremity: Pulses equal, no cyanosis. Neurovascular intact. Full, normal range of motion. Neuro: Awake and alert, GCS 15, oriented to person, place, time, and situation. Cranial nerves II-XII grossly intact. Motor strength 5/5 in all extremities. Sensory grossly intact. Psych: Awake, alert, with orientation to person, place and time. Behavior, mood, and affect are within normal limits sp4 12:41 08:03 sp4 bd
[2022-09-23] MEDS ORDERED: HYDROCODONE/APAP 10/325 TAB PO PRN (09:56)
[2022-09-23] MEDS ORDERED: ACETAMINOPHEN 325 MG TABLET PO PRN (09:56)
[2022-09-23] MEDS ORDERED: ONDANSETRON 4 MG/2 ML VIAL IV PRN (10:06)
[2022-09-23] MEDS ORDERED: GLUCAGON 1 MG/VIAL IM PRN (10:14)
[2022-09-23] MEDS ORDERED: D50W 25 GM/50 ML SYRINGE IV PRN (10:14)
[2022-09-23 10:49] LABS: Magnesium 2.3 mg/dL (1.6-2.4)
[2022-09-23 10:50] LABS: Phosphorus 8.8 mg/dL (2.5-4.9)
[2022-09-23] MEDS: INSULIN -REGULAR HUMAN 50 UNIT/0.5 ML ML SQ SCH ×3 (11:30→21:45)
--- NOTE | 2022-09-23 12:00 | P.HP ---
Certification for Inpatient Patient admitted to: Inpatient With expected LOS: >2 Midnights Patient will require the following post-hospital care: None Practitioner: I am a practitioner with admitting privileges, knowledge of patient current condition, hospital course, and medical plan of care. Services: Services provided to patient in accordance with Admission requirements found in Title 42 Section 412.3 of the Code of Federal Regulations Patient History Date of Service: 09/23/22 Reason for admission: Shortness of breath and shingles History of Present Illness: Patient is a 57-year-old male with a past medical history significant for DM 2, hyperlipidemia, hypertension, ESRD, hypothyroidism who presents with complaint of shortness of breath and left truncal rash. Patient reported that he noticed the rash 1 week ago and has become worse over time. Patient also reported intermittent pain from the rash rated as 4/10 in severity and described as burning in quality. Patient reported associated signs and symptoms of dizziness, generalized malaise, fatigue, bilateral hands, facial and abdominal swelling. Patient denies any other signs and symptoms. Symptoms are aggravated or relieved by nothing. Patient is on [facility] dialysis schedule. Patient went for dialysis today and could not perform dialysis because of the rash. Patient was sent to the ER for further evaluation and management. Allergies No Known Allergies Allergy (Verified 06/01/22 00:37) Home Medications: Hydrocodone/Acetaminophen [Hydrocodone-Acetamin 10-325 mg] 1 tab PO Q6H PRN 06/02/22 Sevelamer Carbonate 1 tab PO TID 06/02/22 Trazodone [Desyrel*] 25 mg PO BEDTIME 06/02/22 Amlodipine Besylate 1 tab PO DAILY #30 tab 06/11/22 Benzonatate [Tessalon Perle*] 100 mg PO TID PRN #30 cap 06/11/22 Cetirizine HCl [Zyrtec*] 10 mg PO DAILY #30 tab 06/11/22 Docusate Sodium 100 mg PO DAILY #30 cap 06/11/22 Ergocalciferol (Vitamin D2) [Vitamin D2] 1 cap PO EVERY 7TH DAY #4 cap 06/11/22 Famotidine [Pepcid*] 20 mg PO DAILY #30 tab 06/11/22 Fluticasone [Flonase 50MCG Nasal [place]*] 2 sprays SERJIO BID #1 btl 06/11/22 Folic Acid 1 mg PO DAILY #30 tab 06/11/22 Gabapentin 100 mg PO BEDTIME #30 cap 06/11/22 Ipratropium/Albuterol Sulfate [Iprat-Albut 0.5-3(2.5) mg/3 ml] 3 ml IH Q6H #120 vial 06/11/22 Levothyroxine Sodium [Levothyroxine] 150 mcg PO DAILY #30 cap 06/11/22 Sennosides [Senna] 1 tab PO BID #60 tab 06/11/22 Sitagliptin Phosphate [Januvia] 1 tab PO DAILY #30 tab 06/11/22 - Past Medical/Surgical History Diabetic: Yes -: hypertension -: hypothyroid -: TYPE 2 DIABETES -: Dyslipidemia -: ESRDMWF -: Hypoxic hypercapnic respiratory failure -: Trach with reversal Psychosocial/ Personal History: Patient lives at home alone. - Family History Sister -: Diabetes - Social History Smoking Status: Never smoker Alcohol use: No CD- Drugs: No Caffeine use: Yes Place of Residence: Home Review of Systems General: Weakness, Other (Fatigue) Eyes: Unremarkable ENT: Unremarkable Respiratory: Shortness of Breath Cardiovascular: Other ( bilateral hands, facial and abdominal swelling.) Gastrointestinal: Unremarkable Genitourinary: Unremarkable Musculoskeletal: Unremarkable Integumentary: Rash Neurological: Other (Dizziness ) Lymphatics: Unremarkable Physical Examination - Physical Exam General: Alert, In no apparent distress, Oriented x3, Cooperative HEENT: Atraumatic, PERRLA, Mucous membr. moist/pink, EOMI, Sclerae nonicteric Neck: Supple, 2+ carotid pulse no bruit, No LAD, Without JVD or thyroid abnormality Respiratory: Normal air movement, Diminished Cardiovascular: Regular rate/rhythm, Normal S1 S2, Edema Capillary refill: <2 Seconds Gastrointestinal: Normal bowel sounds, Soft and benign, Distended Musculoskeletal: No clubbing, No swelling, No erythema, No tenderness Integumentary: Rash(es) Neurological: Normal speech, Normal strength at 5/5 x4 extr, Normal tone, Normal affect Lymphatics: No axilla or inguinal lymphadenopathy - Studies Laboratory Data (last 24 hrs) 09/23/22 06:23: Phosphorus 8.8 H, Magnesium 2.3 09/23/22 06:23: PT 10.1, INR 0.92, APTT 29.8 09/23/22 06:23: WBC 7.30, Hgb 10.4 L, Hct 31.3 L, Plt Count 304 09/23/22 06:23: Sodium 135 L, Potassium 5.0, BUN 81 H, Creatinine 12.70 H, Glucose 149 H, Magnesium 2.2, Total Bilirubin 0.8, AST 15, ALT 15 L, Alkaline Phosphatase 68, Lipase 84 H Assessment and Plan - Plan --ESRD. Nephrology consulted. Dialysis schedule per braille coder. Continue supportive care. --DM2 with neuropathy. BS monitoring with sliding scale insulin. Continue gabapentin for his neuropathy. --Shingles. Patient placed on Valtrex. Continue current precautions. --GERD. Continue Pepcid AC. --Hypothyroidism. Continue Synthroid. -- Hypertension. Poorly controlled. Continue home medications and hydralazine as needed. --Anemia of chronic disease. H&H stable. We will continue to monitor hemoglobin and transfuse if less than 7.0. --Volume overload. Patient scheduled to have dialysis today. Continue O2 therapy. Further management per braille coder. --History of constipation. Continue home medications. --DVT prophylaxis with heparin subQ Discharge Plan: Home Plan to discharge in: Greater than 2 days - Advance Directives Does patient have a Living Will: No Does patient have a Durable POA for Healthcare: No - Code Status/Comfort Care Code Status Assessed: Yes Physician Review: Patient Assessed, Agree with Above Assessment and Plan Critical Care: No
[2022-09-23] MEDS ORDERED: HOME MED 1 EA UNK (Ipratropium/Albuterol Sulfate [Iprat-Albut 0.5-3(2.5) Mg/3 Ml] 3 ML Amp IH SCH (12:15)
[2022-09-23] MEDS ORDERED: HYDRALAZINE HCL 20 MG/ML VIAL IV PRN (12:19)
[2022-09-23] MEDS: IPRATROPIUM BROM 0.5MG/2.5ML IH SCH ×2 (14:00→20:00)
[2022-09-23] MEDS: ALBUTEROL 2.5 MG/3 ML NEB SOL IH SCH ×2 (14:00→21:20)
--- NOTE | 2022-09-23 14:01 | CON ---
Date of Consultation: 09/23/2022 Reason For Consultation: Elevated BUN and creatinine, dialysis management. History Of Present Illness: This is a pleasant 57-year-old gentleman, well known to me from dialysis with significant past medical history of end-stage renal disease, on hemodialysis, Wednesday, Wednesday, Wednesday at [facility] through left upper arm AV graft, hypertension, hyperlipidemia, the patient came to the dialysis, found to have shingles and because of unavailability of isolation, the patient was sent to the ER. The patient complaining from pain on the left upper quadrant. The patient also complaining from restless leg syndrome. The patient did not do dialysis today, last dialysis was Wednesday. Past Medical History: Includes; 1. Diabetes complicated with neuropathy and nephropathy. 2. Hyperlipidemia. 3. Hypertension. 4. End-stage renal disease. 5. Hypothyroidism. Allergies: NO KNOWN DRUG ALLERGIES. Home Medications: Include hydrocodone, trazodone, Renvela, amlodipine, cetirizine, ergocalciferol, Pepcid, gabapentin. Past Surgical History: Includes AV graft placement. Family History: Positive for diabetes. Social History: Denied smoking, denied alcohol, denied drug abuse. Review of Systems: Head and Neck: No red eye. No ear pain. GI: No nausea. No vomiting. : No polyuria. No dysuria. No hematuria. Engraver Steel Plate: Not applicable. Respiratory: No shortness of breath. Cardiovascular: No chest pain. Endocrine: No polydipsia. Skin: No rash except the shingles rash involving the left upper quadrant radiating to the left flank and back, does not cross the midline, covered only 1 dermal area. Physical Examination: Vital Signs: When I saw the patient; blood pressure 163/81, pulse of 72. Chest: Clear to auscultation. Heart: S1, S2. Systolic murmur. Abdomen: Soft, nontender. Extremities: No edema. Neurologic: Alert. No focality. Skin: Shingles rash on the upper quadrant and left flank. Still not having any crust. Laboratory Data: Hemoglobin 10.4. Sodium 135, potassium 5, bicarb 23, BUN 81, creatinine 12. Calcium 8.8. Current Medications: The patient on include; 1. Aspirin. 2. Acyclovir 500 mg daily. 3. Cetirizine. 4. Albuterol. 5. Amlodipine. 6. Gabapentin. 7. Trazodone. 8. Renvela 800 t.i.d. 9. Folic acid. Assessment And Plan: 1. End-stage renal disease, normal volume. We will resume his dialysis. We will give acyclovir after dialysis. We will monitor. 2. Hypertension, controlled, optimal. 3. Diabetes as by primary. 4. Secondary hyperparathyroidism. Continue Renvela. 5. Hyponatremia, will be corrected with dialysis. 6. Anemia of chronic kidney disease. We will resume Retacrit. 7. Restless legs syndrome. I will start the patient on low dose of Requip and we will follow up the patient. 8. Zoster, shingles involved only 1 dermal. We will follow up with primary. Current dose appropriate. Thank you, Dr. Churchill for allowing us to participate in the care of your patient. time spend exam the patient face to face reviewing data lab and radiology placing order , discussing with patient and nursing staff discussing with hospitalisit >75min JESUS Voice ID: [id number] Report ID: [id number] MTDD
[2022-09-23] MEDS: SEVELAMER CARBONATE 800 MG TABLET PO SCH (17:24)
[2022-09-23] MEDS: FLUTICASONE 50MCG NASAL SPRAY NAS SCH (21:00)
[2022-09-23 23:14] LABS: Hepatitis B Core Ab, Total Nonreactive (Nonreactive); Hepatitis B Surface Ab - Quant 387.57 mIU/mL (<8.0)
[2022-09-23] MEDS: ROPINIROLE HCL 0.25 MG TAB PO SCH (23:49)
[2022-09-23] MEDS: SENOSIDES 8.6 MG TAB PO SCH (23:49)
[2022-09-23] MEDS: VALACYCLOVIR 500 MG TAB PO SCH (23:49)
[2022-09-23] MEDS: GABAPENTIN 100 MG CAP PO SCH (23:50)
[2022-09-23] MEDS: TRAZODONE 50 MG TABLET PO SCH (23:50)
[2022-09-23] MEDS: HEPARIN 5000 UNIT/ML 1 ML VIAL SQ SCH (23:51)
[2022-09-24] MEDS: IPRATROPIUM BROM 0.5MG/2.5ML IH SCH ×4 (02:15→20:00)
[2022-09-24] MEDS: ALBUTEROL 2.5 MG/3 ML NEB SOL IH SCH ×4 (02:15→20:00)
[2022-09-24] MEDS: LEVOTHYROXINE SOD 0.075 MG TAB PO SCH (05:35)
[2022-09-24 06:26] LABS: Absolute Lymphocytes (CBC) 0.4 K/uL (0.7-4.9); Hematocrit 34.2 % (39.6-49.0); Lymphocytes % 6.3 % (15.3-44.8); MCV 95.7 fL (80-100); MPV 7.5 fL (7.6-11.3); RBC Red Blood Cell Count 3.58 M/uL (4.33-5.43)
[2022-09-24] MEDS: INSULIN -REGULAR HUMAN 50 UNIT/0.5 ML ML SQ SCH ×4 (07:30→21:36)
[2022-09-24] MEDS: AMLODIPINE 10 MG TAB PO SCH (08:43)
[2022-09-24] MEDS: SENOSIDES 8.6 MG TAB PO SCH ×2 (08:43→21:32)
[2022-09-24] MEDS: FAMOTIDINE 20 MG TAB PO SCH (08:43)
[2022-09-24] MEDS: HEPARIN 5000 UNIT/ML 1 ML VIAL SQ SCH ×2 (08:43→21:33)
[2022-09-24] MEDS: FOLIC ACID 1 MG TABLET PO SCH (08:44)
[2022-09-24] MEDS: ASPIRIN 81 MG CHEWABLE TABLET PO SCH (08:44)
[2022-09-24] MEDS: SEVELAMER CARBONATE 800 MG TABLET PO SCH ×3 (08:44→17:00)
[2022-09-24] MEDS: CETIRIZINE HCL 5 MG TABLET PO SCH (08:44)
[2022-09-24] MEDS: DOCUSATE NA 100 MG CAP PO SCH (08:44)
[2022-09-24] MEDS: FLUTICASONE 50MCG NASAL SPRAY NAS SCH ×2 (08:45→21:00)
[2022-09-24] MEDS ORDERED: HOME MED 1 EA UNK (Levothyroxine Sodium [Levothyroxine Sodium] 150 MCG Capsule) PO SCH (09:00)
[2022-09-24] MEDS ORDERED: lisinopriL 10 MG TAB PO SCH (09:00)
[2022-09-24 10:27] VITALS: BMI 29.8
--- NOTE | 2022-09-24 12:34 | EKG ---
Test Date: 2022-09-23 Test Time: 06:25:34 Peanut Sorter: CIELO MEASUREMENT RESULTS: Intervals: Rate: 77 ID: [id number] QRSD: 96 QT: 392 QTc: 443 Tucker: P: 53 ID: [id number] QRS: 52 T: 99 INTERPRETIVE STATEMENTS: Normal sinus rhythm Normal ECG Compared to ECG 09/14/2022 23:12:17 No significant changes Electronically Signed On 09-24-22 12:31:58 CDT by Christopher Roblero
--- NOTE | 2022-09-24 13:20 | P.PN ---
Subjective Date of Service: 09/24/22 Chief Complaint: Shortness of breath and shingles Subjective: No new changes, Improving Physical Examination - Vital Signs Temperature: 97.9 F Blood Pressure: 170/80 Pulse: 79 Respirations: 20 Pulse Ox (%): 94 - Physical Exam General: Alert, Oriented x3 HEENT: Atraumatic, Normocephalic Neck: Supple Respiratory: Normal air movement Cardiovascular: Regular rate/rhythm, Normal S1 S2 Gastrointestinal: Soft and benign Integumentary: Rash(es) (in left flank.) Assessment And Plan - Plan Assessment and Plan --ESRD. Nephrology consulted. [facility] dialysis schedule. Dialysis per lead pourer. Continue supportive care. --DM2 with neuropathy. BS monitoring with sliding scale insulin. Continue gabapentin for his neuropathy. --Shingles. Improving. Patient placed on Valtrex. Continue current precautions. --GERD. Continue Pepcid AC. --Hypothyroidism. Continue Synthroid. -- Hypertension. Poorly controlled. Continue home medications and hydralazine as needed. --Anemia of chronic disease. H&H stable. We will continue to monitor hemoglobin and transfuse if less than 7.0. --History of constipation. Continue home medications. --DVT prophylaxis with heparin subQ. Discharge Plan: Home. Plan to discharge in: Greater than 2 days Physician Review: Patient Assessed, Agree with Above Assessment and Plan
--- NOTE | 2022-09-24 13:59 | RAD REPORT ---
EXAM DESCRIPTION: RAD - Chest Single View - 09/23/2022 6:34 am CLINICAL HISTORY: CHEST PAIN TECHNIQUE: AP chest COMPARISON: None available for comparison FINDINGS: CHEST: Heart: Cardiomegaly, unchanged. Lungs: No focal consolidation. Decreased inspiration. Atelectatic changes in the left lung base. Mediastinum: Unremarkable Pleura: No appreciable effusion. No pneumothorax. Bones: Intact IMPRESSION: 1. Cardiomegaly, unchanged. 2. Decreased inspiration with left basilar atelectasis. Electronically signed by: Celestine Patton MD 09/23/2022 6:55 AM CDT Due to temporary technical issues with the PACS/Fluency reporting system, reports are being signed by the in house radiologists without review as a courtesy to insure prompt reporting. The interpreting radiologist is fully responsible for the content of the report.
[2022-09-24] MEDS: EPOETIN 4,000 UNIT/ML VIAL IV SCH (14:45)
--- NOTE | 2022-09-24 20:20 | PN ---
Date of Progress Note: 09/24/2022 Subjective: The patient was admitted with shingles. The patient missed dialysis yesterday. We had done dialysis. Tolerated the dialysis very well. Physical Examination: Vital Signs: Blood pressure 170/80, pulse of 79, afebrile. Chest: Clear to auscultation. Heart: S1, S2. Regular. Abdomen: Soft. Nontender. Extremities: No edema. Neuro: Alert. No focality. Laboratory Data: Hemoglobin 11.4, sodium 135, potassium 4, bicarb 27, BUN 49, creatinine 8.8, calcium 9. Current Medications: The patient on, includes: 1. Acyclovir. 2. Aspirin. 3. Albuterol. 4. Epogen. 5. Trazodone. 6. Gabapentin. 7. Renvela. Assessment And Plan: 1. End-stage renal disease, currently normal volume. We will continue the patient on dialysis. We will arrange for the dialysis tomorrow. Patient is going to need setup for outpatient dialysis. 2. Hypertension, controlled, not optimal. I am going to start the patient on lisinopril. We will follow up blood pressure after dialysis. 3. Anemia of chronic kidney disease. No need for SUMIT. 4. Secondary hyperparathyroidism. Continue Renvela. 5. Herpes zoster. Continue valacyclovir, dose appropriate. We will follow up with the primary. 6. Diabetes as by primary. 7. Hyponatremia, status post dialysis, recovered, resolved. time spend exam the patient face to face reviewing data lab and radiology placing order , discussing with patient and nursing staff discussing with hospitalisit >35min JESUS Voice ID: [id number] Report ID: [id number] MTDD
[2022-09-24] MEDS: ROPINIROLE HCL 0.25 MG TAB PO SCH (21:31)
[2022-09-24] MEDS: GABAPENTIN 100 MG CAP PO SCH (21:32)
[2022-09-24] MEDS: TRAZODONE 50 MG TABLET PO SCH (21:32)
[2022-09-24] MEDS: VALACYCLOVIR 500 MG TAB PO SCH (21:33)
[2022-09-25] MEDS: ALBUTEROL 2.5 MG/3 ML NEB SOL IH SCH ×4 (01:50→19:35)
[2022-09-25] MEDS: IPRATROPIUM BROM 0.5MG/2.5ML IH SCH ×4 (01:50→19:35)
[2022-09-25] MEDS: LEVOTHYROXINE SOD 0.075 MG TAB PO SCH (05:30)
[2022-09-25 05:56] LABS: Albumin 3.8 g/dL (3.4-5.0); Phosphorus 6.7 mg/dL (2.5-4.9)
[2022-09-25 06:19] LABS: Arterial Blood Carboxyhemoglob 0.5 % (0-1.5); Blood Gas Oxyhemoglobin 87.1 % (94-97); Blood O2 Saturation 89.6 % (92-98.5)
[2022-09-25] MEDS ORDERED: ALBUTEROL 2.5 MG/3 ML NEB SOL NEB ONE ×2 (06:28→12:30)
[2022-09-25] MEDS ORDERED: METHYLPREDNISOLONE 125 MG INJ IV ONE (06:28)
[2022-09-25] MEDS: INSULIN -REGULAR HUMAN 50 UNIT/0.5 ML ML SQ SCH ×4 (07:30→21:00)
[2022-09-25] MEDS: SEVELAMER CARBONATE 800 MG TABLET PO SCH ×3 (08:00→16:13)
[2022-09-25] MEDS: SENOSIDES 8.6 MG TAB PO SCH ×2 (09:00→21:00)
[2022-09-25] MEDS: FLUTICASONE 50MCG NASAL SPRAY NAS SCH ×2 (09:00→21:00)
[2022-09-25] MEDS: AMLODIPINE 10 MG TAB PO SCH (09:00)
[2022-09-25] MEDS: FOLIC ACID 1 MG TABLET PO SCH (09:00)
[2022-09-25] MEDS: DOCUSATE NA 100 MG CAP PO SCH (09:00)
[2022-09-25] MEDS: ASPIRIN 81 MG CHEWABLE TABLET PO SCH (09:00)
[2022-09-25] MEDS: FAMOTIDINE 20 MG TAB PO SCH (09:00)
[2022-09-25] MEDS: CETIRIZINE HCL 5 MG TABLET PO SCH (09:00)
[2022-09-25] MEDS: HEPARIN 5000 UNIT/ML 1 ML VIAL SQ SCH (09:10)
[2022-09-25 09:12] LABS: Arterial Blood Carboxyhemoglob 0.4 % (0-1.5); Blood Gas Oxyhemoglobin 88.4 % (94-97); Blood O2 Saturation 90.9 % (92-98.5)
--- NOTE | 2022-09-25 12:13 | P.PN ---
Subjective Date of Service: 09/25/22 Chief Complaint: Shortness of breath and shingles Subjective: No new changes Physical Examination - Vital Signs Temperature: 97.1 F Blood Pressure: 110/65 Pulse: 82 Respirations: 20 Pulse Ox (%): 95 - Physical Exam General: Other (chronically ill-appearing) HEENT: Atraumatic, Normocephalic Neck: Supple Respiratory: Other (symmetric chest expansion) Cardiovascular: No rubs, No murmurs Gastrointestinal: Soft and benign Musculoskeletal: No clubbing Integumentary: No warmth Neurological: Normal tone Urinary: Other (no bladder distention) External genitalia: Deferred Rectal: Deferred Assessment And Plan - Plan 1. End-stage renal disease on HD. Received HD yesterday. Next HD tomorrow. 2. Hypertension. continue current medication regimen. HD as above. 3. Anemia of chronic kidney disease. H/H at goal. Monitor cbc. 4. Secondary hyperparathyroidism. Continue Renvela. 5. DM2. Mngt per primary team. Physician Review: Patient Assessed, Agree with Above Assessment and Plan
[2022-09-25] MEDS: METHYLPREDNISOLONE 125 MG INJ IV SCH ×2 (12:23→17:28)
[2022-09-25 14:52] LABS: Blood O2 Saturation 88.4 % (92-98.5)
[2022-09-25 14:53] LABS: Arterial Blood Carboxyhemoglob 0.5 % (0-1.5); Blood Gas Oxyhemoglobin 86.1 % (94-97)
[2022-09-25] MEDS: VALACYCLOVIR 500 MG TAB PO SCH (21:00)
[2022-09-25] MEDS: GABAPENTIN 100 MG CAP PO SCH (21:00)
--- NOTE | 2022-09-25 23:14 | P.PN ---
Subjective Date of Service: 09/25/22 Lethargic but wakes up well; will hold Trazodone and all other sedatives Review of Systems is unable to be obtained Physical Examination - Vital Signs Temperature: 97.5 F Blood Pressure: 122/69 Pulse: 75 Respirations: 22 Pulse Ox (%): 98 - Physical Exam General: Alert, In no apparent distress, Oriented x2, Other (lethargic but wakes up and follows commands as well) HEENT: Atraumatic, PERRLA, EOMI Neck: Supple, JVD not distended Respiratory: Clear to auscultation bilaterally, Normal air movement Cardiovascular: Regular rate/rhythm, Normal S1 S2 Gastrointestinal: Normal bowel sounds, No tenderness Musculoskeletal: No tenderness Integumentary: No rashes Neurological: Normal speech, Normal tone, Normal affect Lymphatics: No axilla or inguinal lymphadenopathy - Studies Medications List Reviewed: Yes Assessment & Plan - Problems (Diagnosis) (1) Hypercapnic respiratory failure Current Visit: Yes Status: Acute (2) DM type 2 (diabetes mellitus, type 2) Current Visit: No Status: Chronic Qualifiers: Diabetes mellitus residential insulin use: without watermaster use Diabetes mellitus complication status: with hyperglycemia Qualified Code(s): E11.65 - Type 2 diabetes mellitus with hyperglycemia (3) ESRD (end stage renal disease) on dialysis Current Visit: No Status: Chronic (4) Hypothyroidism Current Visit: No Status: Chronic Qualifiers: Hypothyroidism type: unspecified Qualified Code(s): E03.9 - Hypothyroidism, unspecified - Plan 1. Bipap support 2. Nebs 3. DC trazodone 4. HD per nephrology - Advance Directives Does patient have a Living Will: No Does patient have a Durable POA for Healthcare: No Physician Review: Patient Assessed, Agree with Above Assessment and Plan
[2022-09-26] MEDS: METHYLPREDNISOLONE 125 MG INJ IV SCH ×4 (00:20→18:14)
[2022-09-26] MEDS: HEPARIN 5000 UNIT/ML 1 ML VIAL SQ SCH ×3 (00:22→21:24)
[2022-09-26] MEDS: ALBUTEROL 2.5 MG/3 ML NEB SOL IH SCH ×4 (02:00→19:15)
[2022-09-26] MEDS: IPRATROPIUM BROM 0.5MG/2.5ML IH SCH ×4 (02:00→19:15)
[2022-09-26 03:45] LABS: Absolute Lymphocytes (CBC) 0.5 K/uL (0.7-4.9); Hematocrit 36.7 % (39.6-49.0); Lymphocytes % 3.2 % (15.3-44.8); MPV 7.8 fL (7.6-11.3); RBC Red Blood Cell Count 3.78 M/uL (4.33-5.43)
[2022-09-26 04:28] LABS: Albumin 3.7 g/dL (3.4-5.0); Bilirubin Total 0.4 mg/dL (0.2-1.0); Magnesium 2.6 mg/dL (1.6-2.4); Potassium 5.7 mEq/L (3.5-5.1); Protein, Total 8.5 g/dL (6.4-8.2)
[2022-09-26 04:29] LABS: Thyroid Stimulating Hormone 23.6 uIU/mL (0.358-3.740)
[2022-09-26 04:30] LABS: Phosphorus 11.4 mg/dL (2.5-4.9)
[2022-09-26 04:46] LABS: Blood Morphology Comment NOT SEEN (NOT SEEN); Platelet Estimate ADEQ
[2022-09-26 05:30] LABS: Blood Gas Oxyhemoglobin 90.7 % (94-97); Blood O2 Saturation 93.2 % (92-98.5)
[2022-09-26 05:31] LABS: Arterial Blood Carboxyhemoglob 0.4 % (0-1.5)
[2022-09-26] MEDS: LEVOTHYROXINE SOD 0.075 MG TAB PO SCH (06:30)
[2022-09-26] MEDS: INSULIN -REGULAR HUMAN 50 UNIT/0.5 ML ML SQ SCH ×4 (07:30→21:24)
[2022-09-26] MEDS ORDERED: LEVOTHYROXINE SODIUM 100 MCG VIAL IV ONE (07:33)
[2022-09-26] MEDS: ASPIRIN 81 MG CHEWABLE TABLET PO SCH (09:41)
[2022-09-26] MEDS: DOCUSATE NA 100 MG CAP PO SCH (09:41)
[2022-09-26] MEDS: AMLODIPINE 10 MG TAB PO SCH (09:41)
[2022-09-26] MEDS: FAMOTIDINE 20 MG TAB PO SCH (09:41)
[2022-09-26] MEDS: CETIRIZINE HCL 5 MG TABLET PO SCH (09:42)
[2022-09-26] MEDS: FOLIC ACID 1 MG TABLET PO SCH (09:42)
[2022-09-26] MEDS: SENOSIDES 8.6 MG TAB PO SCH ×2 (09:42→21:23)
[2022-09-26] MEDS: BENZONATATE 100 MG CAP PO PRN (09:46)
[2022-09-26] MEDS: SEVELAMER CARBONATE 800 MG TABLET PO SCH ×3 (09:46→18:11)
--- NOTE | 2022-09-26 10:46 | RAD REPORT ---
EXAM DESCRIPTION: RADChest Single View09/26/2022 6:45 am CLINICAL HISTORY: pneumonia COMPARISON: Chest Single View dated 09/23/2022; Chest Pa And Lat (2 Views) dated 09/18/2022; Chest Sin gle View dated 09/14/2022; Chest Single View dated 08/20/2022 TECHNIQUE: Portable AP view of the chest. FINDINGS: Decreased inspiratory effort limits evaluation. Patchy left basilar opacities appear new, may reflect atelectasis or early pneumonia. No pneumothorax or effusion. The cardiomediastinal contou rs are unremarkable. IMPRESSION: New left basilar patchy airspace opacities, may reflect atelectasis or early pneumonia.
[2022-09-26] MEDS: FLUTICASONE 50MCG NASAL SPRAY NAS SCH ×2 (13:01→21:23)
[2022-09-26] MEDS: EPOETIN 4,000 UNIT/ML VIAL IV SCH (13:45)
--- NOTE | 2022-09-26 15:10 | P.PN ---
Subjective Date of Service: 09/26/22 Chief Complaint: Shortness of breath and shingles Subjective: Other (he received HD today.) Physical Examination - Vital Signs Temperature: 97.3 F Blood Pressure: 126/73 Pulse: 69 Respirations: 22 Pulse Ox (%): 99 - Physical Exam General: Other (chronically ill-appearing) HEENT: Atraumatic, Normocephalic Neck: Supple Respiratory: Other (symmetric chest expansion) Cardiovascular: No rubs, No murmurs Gastrointestinal: Soft and benign, No guarding Musculoskeletal: No clubbing Integumentary: No warmth Neurological: Normal tone Urinary: Other (no bladder distention) External genitalia: Deferred Rectal: Deferred - Studies Medications List Reviewed: Yes Assessment And Plan - Plan 1. End-stage renal disease on HD. Received HD today. Cont HD TTS sked. 2. Hypertension. continue current medication regimen. HD as above. 3. Anemia of chronic kidney disease. H/H at goal. Monitor cbc. 4. Secondary hyperparathyroidism. Continue Renvela. 5. DM2. Mngt per primary team. Physician Review: Patient Assessed, Agree with Above Assessment and Plan
[2022-09-26] MEDS: GABAPENTIN 100 MG CAP PO SCH (21:23)
[2022-09-26] MEDS: VALACYCLOVIR 500 MG TAB PO SCH (21:23)
[2022-09-27] MEDS: METHYLPREDNISOLONE 125 MG INJ IV SCH ×4 (00:49→17:07)
[2022-09-27] MEDS: ALBUTEROL 2.5 MG/3 ML NEB SOL IH SCH ×4 (01:00→19:30)
[2022-09-27] MEDS: IPRATROPIUM BROM 0.5MG/2.5ML IH SCH ×4 (01:00→19:30)
[2022-09-27 04:31] LABS: Albumin 3.7 g/dL (3.4-5.0); Phosphorus 8.1 mg/dL (2.5-4.9); Potassium 4.4 mEq/L (3.5-5.1)
[2022-09-27] MEDS: LEVOTHYROXINE SOD 0.075 MG TAB PO SCH (06:10)
[2022-09-27] MEDS: INSULIN -REGULAR HUMAN 50 UNIT/0.5 ML ML SQ SCH ×4 (09:16→21:23)
[2022-09-27] MEDS: FAMOTIDINE 20 MG TAB PO SCH (09:23)
[2022-09-27] MEDS: SEVELAMER CARBONATE 800 MG TABLET PO SCH ×3 (09:23→17:06)
[2022-09-27] MEDS: CETIRIZINE HCL 5 MG TABLET PO SCH (09:23)
[2022-09-27] MEDS: AMLODIPINE 10 MG TAB PO SCH (09:23)
[2022-09-27] MEDS: FOLIC ACID 1 MG TABLET PO SCH (09:24)
[2022-09-27] MEDS: SENOSIDES 8.6 MG TAB PO SCH ×2 (09:24→21:23)
[2022-09-27] MEDS: ASPIRIN 81 MG CHEWABLE TABLET PO SCH (09:24)
[2022-09-27] MEDS: FLUTICASONE 50MCG NASAL SPRAY NAS SCH ×2 (09:24→21:00)
[2022-09-27] MEDS: DOCUSATE NA 100 MG CAP PO SCH (09:24)
[2022-09-27] MEDS: HEPARIN 5000 UNIT/ML 1 ML VIAL SQ SCH ×2 (09:25→21:23)
--- NOTE | 2022-09-27 15:31 | P.PN ---
Subjective Date of Service: 09/27/22 Chief Complaint: Shortness of breath and shingles Subjective: No new changes, Other (He received HD yesterday.) Physical Examination - Vital Signs Temperature: 98.0 F Blood Pressure: 119/72 Pulse: 71 Respirations: 18 Pulse Ox (%): 97 - Physical Exam General: Other (chronically ill appearing) HEENT: Atraumatic, Normocephalic Neck: Supple Respiratory: Other (symmetric chest expansion) Cardiovascular: No rubs, No murmurs Gastrointestinal: Soft and benign, No guarding Musculoskeletal: No clubbing Integumentary: No warmth Neurological: Normal tone Urinary: Other (no bladder distention) External genitalia: Deferred Rectal: Deferred - Studies Medications List Reviewed: Yes Assessment And Plan - Plan 1. End-stage renal disease on HD. Received HD yesterday. Cont HD TTS sked. 2. Hypertension. continue current medication regimen. HD as above. 3. Anemia of chronic kidney disease. H/H at goal. Monitor cbc. 4. Secondary hyperparathyroidism. Continue Renvela. 5. DM2. Mngt per primary team. Physician Review: Patient Assessed, Agree with Above Assessment and Plan
--- NOTE | 2022-09-27 18:49 | P.PN ---
Date of Service: 09/26/22 Subjective Patient is more awake and alert. But still requiring BiPAP. We will go ahead and wean off the BiPAP today. Will encourage patient to get out of bed to ambulate. Review of Systems is unable to be obtained Physical Examination - Vital Signs reviewed - Physical Exam General: Alert, In no apparent distress, Oriented x2, Other (lethargic but wakes up and follows commands as well) Respiratory: Clear to auscultation bilaterally, Normal air movement Cardiovascular: Regular rate/rhythm, Normal S1 S2 Gastrointestinal: Normal bowel sounds, No tenderness Neurological: Normal speech, Normal tone, Normal affect Assessment & Plan - Problems (Diagnosis) (1) Hypercapnic respiratory failure Current Visit: Yes Status: Acute (2) DM type 2 (diabetes mellitus, type 2) Current Visit: No Status: Chronic Qualifiers: Diabetes mellitus intermediate card tender insulin use: without intermediate card tender use Diabetes mellitus complication status: with hyperglycemia Qualified Code(s): E11.65 - Type 2 diabetes mellitus with hyperglycemia (3) ESRD (end stage renal disease) on dialysis Current Visit: No Status: Chronic (4) Hypothyroidism Current Visit: No Status: Chronic Qualifiers: Hypothyroidism type: unspecified Qualified Code(s): E03.9 - Hypothyroidism, unspecified - Plan Continue with plan of care as mentioned below: 1. Bipap support 2. Nebs 3. DC trazodone 4. HD per nephrology 5. Strict blood pressure and blood sugar control 6. Continue with thyroid medications 7. GI and DVT prophylaxis - Advance Directives Does patient have a Living Will: No Does patient have a Durable POA for Healthcare: No Physician Review: Patient Assessed, Agree with Above Assessment and Plan
--- NOTE | 2022-09-27 18:51 | P.PN ---
Date of Service: 09/27/22 Subjective Patient was weaned off of the BiPAP. Patient is get out of bed and ambulating. Patient is improved. We will continue with hemodialysis per nephrology. Physical Examination - Vital Signs reviewed - Physical Exam General: Alert, In no apparent distress, Oriented x2, Other (lethargic but wakes up and follows commands as well) Respiratory: Clear to auscultation bilaterally, Normal air movement Cardiovascular: Regular rate/rhythm, Normal S1 S2 Gastrointestinal: Normal bowel sounds, No tenderness Neurological: Normal speech, Normal tone, Normal affect Assessment & Plan - Problems (Diagnosis) (1) Hypercapnic respiratory failure Current Visit: Yes Status: Acute (2) DM type 2 (diabetes mellitus, type 2) Current Visit: No Status: Chronic Qualifiers: Diabetes mellitus youth teacher insulin use: without youth teacher use Diabetes mellitus complication status: with hyperglycemia Qualified Code(s): E11.65 - Type 2 diabetes mellitus with hyperglycemia (3) ESRD (end stage renal disease) on dialysis Current Visit: No Status: Chronic (4) Hypothyroidism Current Visit: No Status: Chronic Qualifiers: Hypothyroidism type: unspecified Qualified Code(s): E03.9 - Hypothyroidism, unspecified - Plan Continue with plan of care as mentioned below: 1. Weaned off bipap support; hypercapnea has improved 2. Continue with Nebs as needed 3. DC trazodone 4. HD per nephrology 5. Strict blood pressure and blood sugar control 6. Continue with thyroid medications; increased dosage 7. GI and DVT prophylaxis - Advance Directives Does patient have a Living Will: No Does patient have a Durable POA for Healthcare: No Physician Review: Patient Assessed, Agree with Above Assessment and Plan
[2022-09-27] MEDS: VALACYCLOVIR 500 MG TAB PO SCH (21:23)
[2022-09-27] MEDS: GABAPENTIN 100 MG CAP PO SCH (21:23)
[2022-09-28] MEDS: METHYLPREDNISOLONE 125 MG INJ IV SCH ×2 (00:32→06:43)
[2022-09-28] MEDS: ALBUTEROL 2.5 MG/3 ML NEB SOL IH SCH ×4 (01:00→19:40)
[2022-09-28] MEDS: IPRATROPIUM BROM 0.5MG/2.5ML IH SCH ×4 (01:00→19:40)
[2022-09-28] MEDS: LEVOTHYROXINE SOD 0.075 MG TAB PO SCH (06:43)
[2022-09-28 06:46] LABS: Absolute Lymphocytes (CBC) 0.5 K/uL (0.7-4.9); Hematocrit 33.2 % (39.6-49.0); Lymphocytes % 3.2 % (15.3-44.8); MCV 97.2 fL (80-100); MPV 7.9 fL (7.6-11.3); RBC Red Blood Cell Count 3.42 M/uL (4.33-5.43)
[2022-09-28 07:16] LABS: Albumin 3.8 g/dL (3.4-5.0); Bilirubin Total 0.3 mg/dL (0.2-1.0); C-Reactive Protein 17.4 mg/L (<3.00); Protein, Total 8.5 g/dL (6.4-8.2)
[2022-09-28 07:17] LABS: Potassium 4.8 mEq/L (3.5-5.1)
[2022-09-28 07:47] LABS: Anisocytosis SLIGHT; Blood Morphology Comment NOTED (NOT SEEN); Platelet Estimate ADEQ; Poikilocytosis 1+
[2022-09-28 07:48] LABS: Ovalocytes 1+
[2022-09-28 08:05] LABS: Albumin 3.8 g/dL (3.4-5.0); Phosphorus 8.5 mg/dL (2.5-4.9)
[2022-09-28 08:07] LABS: Potassium 4.8 mEq/L (3.5-5.1)
[2022-09-28] MEDS: INSULIN -REGULAR HUMAN 50 UNIT/0.5 ML ML SQ SCH ×4 (08:23→21:00)
[2022-09-28] MEDS: SEVELAMER CARBONATE 800 MG TABLET PO SCH ×3 (08:23→17:22)
[2022-09-28] MEDS: FOLIC ACID 1 MG TABLET PO SCH (08:23)
[2022-09-28] MEDS: FAMOTIDINE 20 MG TAB PO SCH (08:23)
[2022-09-28] MEDS: DOCUSATE NA 100 MG CAP PO SCH (08:24)
[2022-09-28] MEDS: ASPIRIN 81 MG CHEWABLE TABLET PO SCH (08:24)
[2022-09-28] MEDS: SENOSIDES 8.6 MG TAB PO SCH ×2 (08:24→21:15)
[2022-09-28] MEDS: predniSONE 20 MG TAB PO SCH ×2 (08:24→21:15)
[2022-09-28] MEDS: CETIRIZINE HCL 5 MG TABLET PO SCH (08:24)
[2022-09-28] MEDS: AMLODIPINE 10 MG TAB PO SCH (08:24)
[2022-09-28] MEDS: HEPARIN 5000 UNIT/ML 1 ML VIAL SQ SCH ×2 (08:24→21:15)
[2022-09-28] MEDS: FLUTICASONE 50MCG NASAL SPRAY NAS SCH ×2 (08:26→21:15)
--- NOTE | 2022-09-28 08:30 | RAD REPORT ---
EXAM DESCRIPTION: Phil Single View09/28/2022 6:05 am CLINICAL HISTORY: Shortness breath COMPARISON: September 26, 2022 FINDINGS: Mild left basilar opacity mildly improved Right lung appears clear. Heart is mildly enlarged IMPRESSION: Mild improvement in a left basilar opacity probably pneumonia
[2022-09-28] MEDS: BENZONATATE 100 MG CAP PO PRN (11:57)
[2022-09-28] MEDS: VALACYCLOVIR 500 MG TAB PO SCH (21:14)
[2022-09-28] MEDS: GABAPENTIN 100 MG CAP PO SCH (21:15)
--- NOTE | 2022-09-28 22:46 | PN ---
Date of Progress Note: 09/28/2022 Chief Complaint: Shortness of breath and shingles. Patient has end-stage renal disease and he recei dirk dialysis on Wednesday. Review of Systems: Patient denies chest pain, palpitation. Physical Examination: Lungs: Few rhonchi. Heart: S1, S2. Abdomen: Soft. Extremities: Slight edema. Impression And Plan: 1.End-stage renal disease. The next dialysis tomorrow. 2.Hypertension. Continue current medication. Continue dialysis for volume control. Treatment with dialysis and ultrafiltration tomorrow. 3.Anemia of chronic kidney disease. H and H are at goal. Continue to monitor CBC. 4.Secondary hyperparathyroidism. Continue Renvela. 5.Diabetes mellitus per primary. EB/MODL Voice ID: [id number] Report ID: [id number]
[2022-09-29] MEDS: IPRATROPIUM BROM 0.5MG/2.5ML IH SCH ×4 (01:55→20:00)
[2022-09-29] MEDS: ALBUTEROL 2.5 MG/3 ML NEB SOL IH SCH ×4 (01:55→20:00)
[2022-09-29] MEDS: LEVOTHYROXINE SOD 0.075 MG TAB PO SCH (06:09)
[2022-09-29] MEDS: INSULIN -REGULAR HUMAN 50 UNIT/0.5 ML ML SQ SCH ×4 (08:39→21:52)
[2022-09-29] MEDS: FAMOTIDINE 20 MG TAB PO SCH (08:40)
[2022-09-29] MEDS: AMLODIPINE 10 MG TAB PO SCH (08:40)
[2022-09-29] MEDS: DOCUSATE NA 100 MG CAP PO SCH (08:40)
[2022-09-29] MEDS: HEPARIN 5000 UNIT/ML 1 ML VIAL SQ SCH ×2 (08:40→21:47)
[2022-09-29] MEDS: SENOSIDES 8.6 MG TAB PO SCH ×2 (08:40→21:46)
[2022-09-29] MEDS: CETIRIZINE HCL 5 MG TABLET PO SCH (08:40)
[2022-09-29] MEDS: predniSONE 20 MG TAB PO SCH ×2 (08:40→21:47)
[2022-09-29] MEDS: FOLIC ACID 1 MG TABLET PO SCH (08:40)
[2022-09-29] MEDS: ASPIRIN 81 MG CHEWABLE TABLET PO SCH (08:40)
[2022-09-29] MEDS: FLUTICASONE 50MCG NASAL SPRAY NAS SCH ×2 (08:40→21:53)
[2022-09-29] MEDS: SEVELAMER CARBONATE 800 MG TABLET PO SCH ×3 (08:40→16:11)
[2022-09-29 09:02] LABS: Albumin 3.8 g/dL (3.4-5.0); Potassium 5.5 mEq/L (3.5-5.1)
[2022-09-29 09:06] LABS: Phosphorus 10.5 mg/dL (2.5-4.9)
--- NOTE | 2022-09-29 10:31 | PN ---
Date of Progress Note: 09/29/2022 Subjective: The patient was admitted with shingles. The patient treated. The patient still complaining from pain. The patient's last dialysis was Wednesday. Physical Examination: Vital Signs: Blood pressure 113/64, pulse of 67, afebrile. Chest: Clear to auscultation. Heart: S1, S2. Regular. Abdomen: Soft. Crusted rash on the left upper quadrant and flank. Extremity: Trace edema. Neuro: Alert. No focality. Laboratory Data: Hemoglobin 10.7. Sodium 126, potassium 5.5, bicarb 21, BUN 146, creatinine 14, calcium 8.4, phosphorus 10.5. Current Medications: On include valacyclovir, cetrizine, heparin, Epogen, amlodipine, Tylenol, gabapentin, Renvela 800 with each meal, breathing treatment, levothyroxine, prednisone 20 b.i.d., Senokot, docusate. Assessment And Plan: 1. End-stage renal disease with significant elevation in the BUN, possible secondary to steroid use. I am going to do dialysis today and tomorrow to achieve better clearance on the patient and we will continue to monitor the patient. 2. Secondary hyperparathyroidism. Continue current treatment. Increase Renvela to 3 tablets with each meal. 3. Hyperkalemia. We will dialyze on low potassium bath. 4. Hyponatremia secondary to dilutional, going to be corrected with dialysis. 5. Shingles, zoster. Continue acyclovir. We will follow up with primary. 6. Hypertension, controlled, optimal. 7. Hypercapnic respiratory failure. Continue p.r.n. BiPAP. time spend exam the patient face to face reviewing data lab and radiology , placing order discussing the case with the patient , discussing with the nursing staff , discussing with the hospitalist >35 min JESUS Voice ID: [id number] Report ID: [id number] MTDD
[2022-09-29] MEDS ORDERED: modafiniL 100 MG TAB PO ONE (11:30)
[2022-09-29] MEDS: GABAPENTIN 100 MG CAP PO SCH (21:46)
[2022-09-29] MEDS: VALACYCLOVIR 500 MG TAB PO SCH (21:47)
[2022-09-30] MEDS: IPRATROPIUM BROM 0.5MG/2.5ML IH SCH ×4 (02:00→20:00)
[2022-09-30] MEDS: ALBUTEROL 2.5 MG/3 ML NEB SOL IH SCH ×4 (02:00→20:00)
[2022-09-30] MEDS: LEVOTHYROXINE SOD 0.075 MG TAB PO SCH (06:02)
[2022-09-30] MEDS: INSULIN -REGULAR HUMAN 50 UNIT/0.5 ML ML SQ SCH ×4 (07:30→21:00)
[2022-09-30] MEDS: SENOSIDES 8.6 MG TAB PO SCH ×2 (10:35→21:45)
[2022-09-30] MEDS: DOCUSATE NA 100 MG CAP PO SCH (10:36)
[2022-09-30] MEDS: CETIRIZINE HCL 5 MG TABLET PO SCH (10:36)
[2022-09-30] MEDS: predniSONE 20 MG TAB PO SCH ×2 (10:37→21:45)
[2022-09-30] MEDS: FAMOTIDINE 20 MG TAB PO SCH (10:37)
[2022-09-30] MEDS: AMLODIPINE 10 MG TAB PO SCH (10:37)
[2022-09-30] MEDS: BENZONATATE 100 MG CAP PO PRN (10:37)
[2022-09-30] MEDS: SEVELAMER CARBONATE 800 MG TABLET PO SCH ×3 (10:38→17:00)
[2022-09-30] MEDS: FOLIC ACID 1 MG TABLET PO SCH (10:38)
[2022-09-30] MEDS: FLUTICASONE 50MCG NASAL SPRAY NAS SCH ×2 (10:39→21:00)
[2022-09-30] MEDS: ASPIRIN 81 MG CHEWABLE TABLET PO SCH (10:39)
[2022-09-30] MEDS: HEPARIN 5000 UNIT/ML 1 ML VIAL SQ SCH ×2 (10:40→21:45)
--- NOTE | 2022-09-30 11:04 | PN ---
Date of Progress Note: 09/30/2022 Subjective: The patient was admitted with shingles. The patient had hypercapnic respiratory failure. The patient was treated, recovered. Physical Examination: Vital Signs: Blood pressure 157/97, pulse of 87, afebrile. Chest: Clear to auscultation. Heart: S1, S2. Regular. Abdomen: Soft, nontender. Extremity: No edema. Tenderness on the flank where is the zoster present. No guarding or rebound. Neurologic: Alert. No focality. Laboratory Data: Hemoglobin 10.7. Sodium 126, potassium 5.5, bicarb 21, BUN 146, creatinine 14.2, calcium 8.4, phosphorus 10.5. Albumin 3.8. Current Medications: The patient on include; 1. Cetirizine. 2. Valacyclovir. 3. Aspirin. 4. Epogen. 5. Amlodipine 10 mg. 6. Gabapentin 100 at bedtime. 7. Renvela. 8. Folic acid. 9. Zofran. 10. Levothyroxine. Assessment And Plan: 1. End-stage renal disease. Normal volume currently. We will continue dialysis Wednesday, Wednesday, Wednesday. The patient due for dialysis today. We will follow up. 2. Anemia of chronic kidney disease. Continue SUMIT. 3. Hyperkalemia. The patient is going to be dialyzed on low potassium bath. 4. Severe disproportion in BUN and creatinine. We will dialyze the patient extra today. Possible secondary to steroid, but we will dialyze today. 5. Hyponatremia, will be corrected with dialysis. 6. Hypercapnic respiratory failure as by primary. 7. Deconditioning. Continue PT, OT. 8. Zoster. Continue current treatment. We will follow up with primary. time spend exam the patient face to face reviewing data lab and radiology , placing order discussing the case with the patient , discussing with the nursing staff , discussing with the hospitalist >35 min STEPH/CASSIE Voice ID: [id number] Report ID: [id number] MTDD
[2022-09-30] MEDS: EPOETIN 4,000 UNIT/ML VIAL IV SCH (18:38)
[2022-09-30] MEDS: VALACYCLOVIR 500 MG TAB PO SCH (21:45)
[2022-09-30] MEDS: GABAPENTIN 100 MG CAP PO SCH (21:45)
[2022-09-30 23:13] LABS: Hepatitis B surface AG Interp. Nonreactive (Nonreactive)
[2022-10-01] MEDS: BENZONATATE 100 MG CAP PO PRN ×2 (01:50→22:01)
[2022-10-01] MEDS: ALBUTEROL 2.5 MG/3 ML NEB SOL IH SCH ×4 (02:00→20:10)
[2022-10-01] MEDS: IPRATROPIUM BROM 0.5MG/2.5ML IH SCH ×4 (02:00→20:10)
[2022-10-01] MEDS: LEVOTHYROXINE SOD 0.075 MG TAB PO SCH (05:43)
[2022-10-01] MEDS: INSULIN -REGULAR HUMAN 50 UNIT/0.5 ML ML SQ SCH ×4 (07:30→20:40)
[2022-10-01 08:07] LABS: Absolute Lymphocytes (CBC) 1.9 K/uL (0.7-4.9); Hematocrit 39.7 % (39.6-49.0); Lymphocytes % 11.1 % (15.3-44.8); MPV 7.4 fL (7.6-11.3); RBC Red Blood Cell Count 4.05 M/uL (4.33-5.43)
[2022-10-01 08:25] LABS: Potassium 4.1 mEq/L (3.5-5.1)
[2022-10-01] MEDS: ASPIRIN 81 MG CHEWABLE TABLET PO SCH (08:30)
[2022-10-01] MEDS: CETIRIZINE HCL 5 MG TABLET PO SCH (08:30)
[2022-10-01] MEDS: AMLODIPINE 10 MG TAB PO SCH (08:30)
[2022-10-01] MEDS: predniSONE 20 MG TAB PO SCH ×2 (08:30→20:39)
[2022-10-01] MEDS: SEVELAMER CARBONATE 800 MG TABLET PO SCH ×3 (08:30→16:59)
[2022-10-01] MEDS: FAMOTIDINE 20 MG TAB PO SCH (08:30)
[2022-10-01] MEDS: SENOSIDES 8.6 MG TAB PO SCH ×2 (08:30→20:39)
[2022-10-01] MEDS: FOLIC ACID 1 MG TABLET PO SCH (08:30)
[2022-10-01] MEDS: FLUTICASONE 50MCG NASAL SPRAY NAS SCH ×2 (08:31→20:39)
[2022-10-01] MEDS: DOCUSATE NA 100 MG CAP PO SCH (08:31)
[2022-10-01] MEDS: HEPARIN 5000 UNIT/ML 1 ML VIAL SQ SCH ×2 (08:31→20:38)
[2022-10-01 10:21] LABS: Platelet Estimate INCR; Platelets, Giant 1+; Smudge Cells FEW
[2022-10-01 10:22] LABS: Anisocytosis 1+; Blood Morphology Comment NOTED (NOT SEEN); Macrocytosis 1+; Ovalocytes 1+; Poikilocytosis 1+; Teardrop Cell FEW
--- NOTE | 2022-10-01 10:34 | PN ---
Date of Progress Note: 10/01/2022 Subjective: The patient doing well. More awake. No altered mental status. The patient is status post dialysis yesterday, tolerated the dialysis very well, no event, managed to remove 2600. Objective: Chest: Clear to auscultation. Heart: S1, S2. Regular. Abdomen: Soft, nontender. Extremity: Trace edema. Neurologic: Alert. No focality. Laboratory Data: Hemoglobin 13. Sodium 133, potassium 4.1, bicarb 29, BUN 50, creatinine 7.2, calcium 9.4. Current Medications: The patient on include; 1. Amlodipine. 2. Epogen. 3. Hydralazine. 4. Gabapentin. 5. Renvela 2400. 6. Folic acid. 7. Pepcid. 8. Levothyroxine. Assessment And Plan: 1. End-stage renal disease with over volume, status post dialysis, currently normal volume. We will continue to monitor the patient, back schedule Wednesday, Wednesday, Wednesday. We will schedule the patient for dialysis tomorrow. 2. Hypertension, controlled, optimal. Continue to utilize blood pressure for more ultrafiltration. 3. Hyponatremia, recovered. 4. Severe disproportion in BUN and creatinine secondary to catabolic state and steroid, has been resolved. BUN down to 50. 5. Over volume, currently normal volume. Resume dialysis Wednesday, Wednesday, Wednesday. 6. Shingles, status post treatment. Continue valacyclovir, dose appropriate. We will follow up with primary. 7. Hypercapnic respiratory failure. Continue BiPAP. Follow up with Pulmonary. time spend exam the patient face to face reviewing data lab and radiology , discussing the case with the patient , discussing the case with the steamfitter apprentice nursing staff and hospitalist , placing order more than 35 min STEPH/CASSIE Voice ID: [id number] Report ID: [id number] EFREN
[2022-10-01] MEDS: GABAPENTIN 100 MG CAP PO SCH (20:39)
[2022-10-01] MEDS: VALACYCLOVIR 500 MG TAB PO SCH (20:40)
[2022-10-02] MEDS: ALBUTEROL 2.5 MG/3 ML NEB SOL IH SCH ×4 (02:00→21:50)
[2022-10-02] MEDS: IPRATROPIUM BROM 0.5MG/2.5ML IH SCH ×4 (02:00→21:50)
[2022-10-02] MEDS: LEVOTHYROXINE SOD 0.075 MG TAB PO SCH (05:31)
--- NOTE | 2022-10-02 07:08 | P.PN ---
Date of Service: 09/28/22 Subjective Patient is doing much better; more awake and alert; OOB and ambulate Physical Examination - Vital Signs reviewed - Physical Exam General: Alert, In no apparent distress, Oriented x2, lethargic Respiratory: Clear to auscultation bilaterally, Normal air movement Cardiovascular: Regular rate/rhythm, Normal S1 S2 Gastrointestinal: Normal bowel sounds, No tenderness Neurological: No focal deficits; Assessment & Plan - Problems (Diagnosis) (1) Hypercapnic respiratory failure Current Visit: Yes Status: Acute (2) DM type 2 (diabetes mellitus, type 2) Current Visit: No Status: Chronic Qualifiers: Diabetes mellitus skilled nursing insulin use: without marine oil terminal superintendent use Diabetes mellitus complication status: with hyperglycemia Qualified Code(s): E11.65 - Type 2 diabetes mellitus with hyperglycemia (3) ESRD (end stage renal disease) on dialysis Current Visit: No Status: Chronic (4) Hypothyroidism Current Visit: No Status: Chronic Qualifiers: Hypothyroidism type: unspecified Qualified Code(s): E03.9 - Hypothyroidism, unspecified - Plan Continue with plan of care as mentioned below: 1. Weaned off bipap support; hypercapnea has improved 2. Continue with Nebs as needed 3. DC trazodone 4. HD per nephrology 5. Strict blood pressure and blood sugar control 6. Continue with thyroid medications; increased dosage 7. GI and DVT prophylaxis - Advance Directives Does patient have a Living Will: No Does patient have a Durable POA for Healthcare: No Physician Review: Patient Assessed, Agree with Above Assessment and Plan
--- NOTE | 2022-10-02 07:10 | P.PN ---
Date of Service: 09/29/22 Subjective Patient is doing well with no new complaints. Physical Examination - Vital Signs reviewed - Physical Exam General: Alert, In no apparent distress, Oriented x2, lethargic Respiratory: Clear to auscultation bilaterally Cardiovascular: Regular rate/rhythm, Normal S1 S2 Gastrointestinal: Normal bowel sounds, No tenderness Neurological: No focal deficits; Assessment & Plan - Problems (Diagnosis) (1) Hypercapnic respiratory failure Current Visit: Yes Status: Acute (2) DM type 2 (diabetes mellitus, type 2) Current Visit: No Status: Chronic Qualifiers: Diabetes mellitus superintendent container terminal insulin use: without fpc use Diabetes mellitus complication status: with hyperglycemia Qualified Code(s): E11.65 - Type 2 diabetes mellitus with hyperglycemia (3) ESRD (end stage renal disease) on dialysis Current Visit: No Status: Chronic (4) Hypothyroidism Current Visit: No Status: Chronic Qualifiers: Hypothyroidism type: unspecified Qualified Code(s): E03.9 - Hypothyroidism, unspecified - Plan Continue with plan of care as mentioned below: 1. Weaned off bipap support; hypercapnea has improved; OOB and ambulate 2. Continue with Nebs as needed 3. DC trazodone 4. HD per nephrology 5. Strict BP and BS control 6. Continue with thyroid medications; increased dosage 7. GI and DVT prophylaxis - Advance Directives Does patient have a Living Will: No Does patient have a Durable POA for Healthcare: No Physician Review: Patient Assessed, Agree with Above Assessment and Plan
--- NOTE | 2022-10-02 07:14 | P.PN ---
Date of Service: 09/30/22 Subjective Pt is doing well with no new complaints; family was supposed to pick him up today Physical Examination - Vital Signs reviewed - Physical Exam General: Alert, In no apparent distress, Oriented x2, lethargic Respiratory: Clear to auscultation bilaterally Cardiovascular: Regular rate/rhythm, Normal S1 S2 Gastrointestinal: Normal bowel sounds, No tenderness Neurological: No focal deficits; Assessment & Plan - Problems (Diagnosis) (1) Hypercapnic respiratory failure Current Visit: Yes Status: Acute (2) DM type 2 (diabetes mellitus, type 2) Current Visit: No Status: Chronic Qualifiers: Diabetes mellitus shelter insulin use: without salvage determiner use Diabetes mellitus complication status: with hyperglycemia Qualified Code(s): E11.65 - Type 2 diabetes mellitus with hyperglycemia (3) ESRD (end stage renal disease) on dialysis Current Visit: No Status: Chronic (4) Hypothyroidism Current Visit: No Status: Chronic Qualifiers: Hypothyroidism type: unspecified Qualified Code(s): E03.9 - Hypothyroidism, unspecified (5) 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 BIPAP at night; OOB and to chair during the day; ambulate as tolerated 2. Continue with Nebs 3. No sedatives; may benefit from meds for narcolepsy 4. HD per nephrology 5. Strict BP and BS control 6. Continue with thyroid medications; increased dosage 7. If family doesn't pick him up today then may need or placement 8. GI and DVT prophylaxis - Advance Directives Does patient have a Living Will: No Does patient have a Durable POA for Healthcare: No Physician Review: Patient Assessed, Agree with Above Assessment and Plan
--- NOTE | 2022-10-02 07:17 | P.PN ---
Date of Service: 10/01/22 Subjective Patient is doing well; waiting for acceptance to [facility] Physical Examination - Vital Signs reviewed - Physical Exam General: Alert, In no apparent distress, Oriented x2, lethargic Respiratory: Clear to auscultation bilaterally Cardiovascular: Regular rate/rhythm, Normal S1 S2 Gastrointestinal: Normal bowel sounds, No tenderness Neurological: No focal deficits; Assessment & Plan - Problems (Diagnosis) (1) Hypercapnic respiratory failure Current Visit: Yes Status: Acute (2) DM type 2 (diabetes mellitus, type 2) Current Visit: No Status: Chronic Qualifiers: Diabetes mellitus retirement insulin use: without chute boss use Diabetes mellitus complication status: with hyperglycemia Qualified Code(s): E11.65 - Type 2 diabetes mellitus with hyperglycemia (3) ESRD (end stage renal disease) on dialysis Current Visit: No Status: Chronic (4) Hypothyroidism Current Visit: No Status: Chronic Qualifiers: Hypothyroidism type: unspecified Qualified Code(s): E03.9 - Hypothyroidism, unspecified (5) 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 BIPAP at night; OOB and to chair during the day; ambulate as tolerated; awaiting placement 2. Continue with Nebs 3. No sedatives; may benefit from meds for narcolepsy 4. HD per nephrology 5. Strict BP and BS control 6. Continue with thyroid medications; increased dosage 7. If family doesn't pick him up today then may need or placement 8. GI and DVT prophylaxis - Advance Directives Does patient have a Living Will: No Does patient have a Durable POA for Healthcare: No Physician Review: Patient Assessed, Agree with Above Assessment and Plan
[2022-10-02] MEDS: INSULIN -REGULAR HUMAN 50 UNIT/0.5 ML ML SQ SCH ×4 (07:30→21:00)
[2022-10-02] MEDS: DOCUSATE NA 100 MG CAP PO SCH (08:49)
[2022-10-02] MEDS: FOLIC ACID 1 MG TABLET PO SCH (08:50)
[2022-10-02] MEDS: SEVELAMER CARBONATE 800 MG TABLET PO SCH ×3 (08:50→21:21)
[2022-10-02] MEDS: CETIRIZINE HCL 5 MG TABLET PO SCH (08:50)
[2022-10-02] MEDS: ASPIRIN 81 MG CHEWABLE TABLET PO SCH (08:50)
[2022-10-02] MEDS: SENOSIDES 8.6 MG TAB PO SCH ×2 (08:50→21:14)
[2022-10-02] MEDS: HEPARIN 5000 UNIT/ML 1 ML VIAL SQ SCH ×2 (08:50→21:00)
[2022-10-02] MEDS: predniSONE 20 MG TAB PO SCH ×2 (08:50→21:14)
[2022-10-02] MEDS: AMLODIPINE 10 MG TAB PO SCH (08:51)
[2022-10-02] MEDS: FLUTICASONE 50MCG NASAL SPRAY NAS SCH ×2 (08:52→21:00)
[2022-10-02] MEDS: FAMOTIDINE 20 MG TAB PO SCH (08:52)
[2022-10-02] MEDS: BENZONATATE 100 MG CAP PO PRN (09:29)
--- NOTE | 2022-10-02 12:35 | P.PN ---
Subjective Date of Service: 10/02/22 Chief Complaint: Shortness of breath and shingles Subjective: No new changes Physical Examination - Vital Signs Temperature: 97.0 F Blood Pressure: 140/86 Pulse: 69 Respirations: 20 Pulse Ox (%): 99 - Physical Exam General: Alert, Oriented x3 HEENT: Atraumatic, Normocephalic Neck: Supple Respiratory: Normal air movement Cardiovascular: Regular rate/rhythm, Normal S1 S2 Gastrointestinal: Soft and benign Musculoskeletal: No swelling Neurological: Normal speech - Studies Medications List Reviewed: Yes Assessment And Plan - Plan Assessment and Plan --ESRD. Nephrology consulted. MWF dialysis schedule. Dialysis per flight engineer performance qualified. Continue supportive care. --DM2 with neuropathy. BS monitoring with sliding scale insulin. Continue gagandeep apentin for his neuropathy. --Shingles. Improved symptoms. we will follow closely. --GERD. Continue Pepcid AC. --Hypothyroidism. Continue Synthroid. -- Hypertension. Poorly controlled. Continue home medications and hydralazine as needed. --Anemia of chronic disease. H&H stable. We will continue to monitor hemoglobin and transfuse if less than 7.0. --History of constipation. Continue home medications. --DVT prophylaxis with heparin subQ. Discharge Plan: SNF Plan to discharge in: Pending approval. Physician Review: Patient Assessed, Agree with Above Assessment and Plan
--- NOTE | 2022-10-02 15:09 | P.PN ---
Subjective Date of Service: 10/02/22 Chief Complaint: Shortness of breath and shingles Subjective: No new changes, Other (he received HD today.) Physical Examination - Vital Signs Temperature: 97.0 F Blood Pressure: 140/86 Pulse: 69 Respirations: 20 Pulse Ox (%): 99 - Physical Exam General: Other (chronically ill-appearing) HEENT: Atraumatic, Normocephalic Neck: Supple, JVD not distended Respiratory: Other (symmetric chest expansion) Cardiovascular: No rubs, No murmurs Gastrointestinal: Soft and benign, No guarding Musculoskeletal: No clubbing Integumentary: No warmth Neurological: Normal tone Urinary: Other (no bladder distention) External genitalia: Deferred Rectal: Deferred - Studies Medications List Reviewed: Yes Assessment And Plan - Plan 1. End-stage renal disease on HD. Received HD today. Cont HD MWF sked. 2. Hypertension. continue current medication regimen. HD as above. 3. Anemia of chronic kidney disease. H/H at goal. Monitor cbc. 4. Secondary hyperparathyroidism. Continue Renvela. 5. DM2. Mngt per primary team. 6. Acute hypercapnic respiratory failure. On BiPAP. Per pulmonary service 7. Shingles. Received antiviral therapy. Physician Review: Patient Assessed, Agree with Above Assessment and Plan
[2022-10-02] MEDS: EPOETIN 4,000 UNIT/ML VIAL IV SCH (18:00)
[2022-10-02] MEDS: GABAPENTIN 100 MG CAP PO SCH (21:00)
[2022-10-02] MEDS: VALACYCLOVIR 500 MG TAB PO SCH (21:14)
[2022-10-03] MEDS: IPRATROPIUM BROM 0.5MG/2.5ML IH SCH ×4 (02:00→20:20)
[2022-10-03] MEDS: ALBUTEROL 2.5 MG/3 ML NEB SOL IH SCH ×4 (02:00→20:20)
[2022-10-03] MEDS: LEVOTHYROXINE SOD 0.075 MG TAB PO SCH (06:34)
[2022-10-03] MEDS: FAMOTIDINE 20 MG TAB PO SCH (08:18)
[2022-10-03] MEDS: CETIRIZINE HCL 5 MG TABLET PO SCH (08:18)
[2022-10-03] MEDS: SEVELAMER CARBONATE 800 MG TABLET PO SCH ×3 (08:18→17:07)
[2022-10-03] MEDS: predniSONE 20 MG TAB PO SCH ×2 (08:19→20:08)
[2022-10-03] MEDS: AMLODIPINE 10 MG TAB PO SCH (08:19)
[2022-10-03] MEDS: SENOSIDES 8.6 MG TAB PO SCH ×2 (08:19→20:08)
[2022-10-03] MEDS: FOLIC ACID 1 MG TABLET PO SCH (08:19)
[2022-10-03] MEDS: ASPIRIN 81 MG CHEWABLE TABLET PO SCH (08:20)
[2022-10-03] MEDS: INSULIN -REGULAR HUMAN 50 UNIT/0.5 ML ML SQ SCH ×4 (08:20→20:08)
[2022-10-03] MEDS: HEPARIN 5000 UNIT/ML 1 ML VIAL SQ SCH ×2 (08:20→20:09)
[2022-10-03] MEDS: DOCUSATE NA 100 MG CAP PO SCH (08:20)
[2022-10-03] MEDS: FLUTICASONE 50MCG NASAL SPRAY NAS SCH (08:21)
--- NOTE | 2022-10-03 10:53 | P.PN ---
Subjective Date of Service: 10/03/22 Chief Complaint: Shortness of breath and shingles Subjective: No new changes, Improving Physical Examination - Vital Signs Temperature: 97.4 F Blood Pressure: 123/73 Pulse: 68 Respirations: 18 Pulse Ox (%): 100 - Physical Exam General: Alert HEENT: Atraumatic, Normocephalic Neck: Supple Respiratory: Normal air movement Cardiovascular: Regular rate/rhythm, Normal S1 S2 Gastrointestinal: Soft and benign Musculoskeletal: No swelling Neurological: Normal speech - Studies Medications List Reviewed: Yes Assessment And Plan - Plan Assessment and Plan --ESRD. Nephrology consulted. MWF dialysis schedule. Dialysis per play leader. Continue supportive care. --DM2 with neuropathy. BS monitoring with sliding scale insulin. Continue veronika pentin for his neuropathy. --Shingles. Improved symptoms. we will follow closely. --GERD. Continue Pepcid AC. --Hypothyroidism. Continue Synthroid. -- Hypertension. Poorly controlled. Continue home medications and hydralazine as needed. --Anemia of chronic disease. H&H stable. We will continue to monitor hemoglobin and transfuse if less than 7.0. --History of constipation. Continue home medications. --DVT prophylaxis with heparin subQ. Discharge Plan: SNF Plan to discharge in: Pending approval. Physician Review: Patient Assessed, Agree with Above Assessment and Plan
[2022-10-03] MEDS: BENZONATATE 100 MG CAP PO PRN (11:07)
--- NOTE | 2022-10-03 16:39 | P.PN ---
Subjective Date of Service: 10/03/22 Chief Complaint: Shortness of breath and shingles today No overnight events AVG with no bruit and thrill will initiate transfer for AVF declotting vs IR TDC placement Physical exam General: Awake, NAD HEENT: Atraumatic, Normocephalic Neck: Supple, no elevated JVD Respiratory: CTAB Cardiovascular: No rubs, No murmurs Gastrointestinal: Soft and benign, Non-distended Musculoskeletal: No clubbing Integumentary: No warmth Access; No bruit or thrill A/P # End-stage renal disease on HD. Cont HD MWF sked. #Access malfunction : pt had HD yesterday with no issues, Today no bruit or thrill on exam , will initiate transfer for AVF declotting vs IR TDC placement # Hypertension. continue current medication regimen. HD as above. # Anemia of chronic kidney disease. H/H at goal. Monitor cbc. # Secondary hyperparathyroidism. Continue Renvela. # DM2. Mngt per primary team. # Acute hypercapnic respiratory failure. On BiPAP. Per pulmonary service # Shingles. Received antiviral therapy. Physical Examination - Vital Signs Temperature: 97.4 F Blood Pressure: 123/73 Pulse: 68 Respirations: 18 Pulse Ox (%): 100 - Studies Medications List Reviewed: Yes Assessment And Plan Physician Review: Patient Assessed, Agree with Above Assessment and Plan
[2022-10-03] MEDS: VALACYCLOVIR 500 MG TAB PO SCH (20:08)
[2022-10-03] MEDS: GABAPENTIN 100 MG CAP PO SCH (20:08)
[2022-10-03 20:46] VITALS: BP 149/78; TEMP 98.3
[2022-10-03 21:17] VITALS: O2SAT 97
--- NOTE | 2022-10-03 22:10 | P.DS ---
Admission Date: 09/23/22 Discharge Date: 10/03/22 Disposition: TRANSFER TO [facility] Discharge Condition: FAIR Reason for Admission: Shortness of breath and shingles Consultations: Nephrology- Dr. Curry, Dr. Lemus, and Dr. 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 Diabetes mellitus complication status: with hyperglycemia Qualified Code(s): E11.65 - Type 2 diabetes mellitus with hyperglycemia (3) ESRD (end stage renal disease) on dialysis Status: Chronic (4) Anemia Status: Chronic Qualifiers: Anemia type: due to chronic kidney disease Chronic kidney disease stage: on chronic dialysis Qualified Code(s): N18.6 - End stage renal disease; D63.1 - Anemia in chronic kidney disease; Z99.2 - Dependence on renal dialysis (5) GERD (gastroesophageal reflux disease) Status: Chronic Qualifiers: Esophagitis presence: without esophagitis Qualified Code(s): K21.9 - Gastro-esophageal reflux disease without esophagitis (6) Shingles Status: Acute Qualifiers: Herpes zoster complications: unspecified herpes zoster complication Qualified Code(s): B02.8 - Zoster with other complications (7) Hypothyroid Status: Chronic Qualifiers: Hypothyroidism type: unspecified Qualified Code(s): E03.9 - Hypothyroidism, unspecified Brief History of Present Illness: Mr. Philippe Dunbar is a 57-year-old male with a past medical history significant for DM 2, hyperlipidemia, hypertension, ESRD, hypothyroidism who presents with complaint of shortness of breath and left truncal rash. Patient reported that he noticed the rash 1 week ago and has become worse over time. Patient also reported intermittent pain from the rash rated as 4/10 in severity and described as burning in quality. Patient reported associated signs and symptoms of dizziness, generalized malaise, fatigue, bilateral hands, facial and abdominal swelling. Patient denies any other signs and symptoms. Symptoms are aggravated or relieved by nothing. Patient is on [facility] dialysis schedule. Patient went for dialysis today and could not perform dialysis because of the rash. Patient was sent to the ER for further evaluation and management. Hospital Course: Mr. Dunbar was admitted and treated with valtrex for shingles. He did become hypercapneic and lethargic, requiring bipap but improved gradually. He received routine dialysis. Arrangements were being made for him to be discharged to [facility]. However, this morning on sounds, it was discovered that his AVG had no bruit or thrill. Transfer was initiated by Dr. Curry for vascular surgery for AVF declotting vs IR TDC placement and he was accepted to [facility] s evening. He left this facility via EMS in a stable condition. Vital Signs/Physical Exam: Temp Pulse Resp BP Pulse Ox 98.3 F 68 17 149/78 H 94 10/03/22 20:00 10/03/22 20:00 10/03/22 20:00 10/03/22 20:00 10/03/22 20:00 General: Alert, In no apparent distress HEENT: Atraumatic Neck: Supple Respiratory: Normal air movement Cardiovascular: Normal pulses, Regular rate/rhythm Gastrointestinal: Soft and benign, Non-distended Musculoskeletal: No clubbing Integumentary: No rashes Neurological: Normal speech, Normal affect Laboratory Data at Discharge: WBC 17.40 thou/uL (4.3-10.9) H 10/01/22 07:38 Hgb 13.0 g/dL (13.6-17.9) L 10/01/22 07:38 Hct 39.7 % (39.6-49.0) 10/01/22 07:38 Plt Count 474 thou/uL (152-406) H 10/01/22 07:38 PT 10.1 SECONDS (9.5-12.5) 09/23/22 06:23 INR 0.92 09/23/22 06:23 APTT 29.8 SECONDS (24.3-36.9) 09/23/22 06:23 Sodium 133 mEq/L (136-145) L 10/01/22 07:38 Potassium 4.1 mEq/L (3.5-5.1) 10/01/22 07:38 BUN 50 mg/dL (7-18) H 10/01/22 07:38 Creatinine 7.27 mg/dL (0.70-1.30) H 10/01/22 07:38 Glucose 162 mg/dL (74-106) H 10/01/22 07:38 Phosphorus 10.5 mg/dL (2.5-4.9) H* 09/29/22 08:10 Magnesium 2.6 mg/dL (1.6-2.4) H 09/26/22 03:11 Total Bilirubin 0.3 mg/dL (0.2-1.0) 09/28/22 06:26 AST 11 U/L (15-37) L 09/28/22 06:26 ALT 16 U/L (16-61) 09/28/22 06:26 Alkaline Phosphatase 87 U/L (45-117) 09/28/22 06:26 Triglycerides 237 mg/dL (<150) H 09/24/22 05:07 Cholesterol 137 mg/dL (<200) 09/24/22 05:07 HDL Cholesterol 62 mg/dL (40-60) H 09/24/22 05:07 Cholesterol/HDL Ratio 2.21 09/24/22 05:07 Lipase 84 U/L (13-75) H 09/23/22 06:23 Home Medications: Hydrocodone/Acetaminophen [Hydrocodone-Acetamin 10-325 mg] 1 tab PO Q6H PRN 06/02/22 Sevelamer Carbonate 1 tab PO TID 06/02/22 Trazodone [Desyrel*] 25 mg PO BEDTIME 06/02/22 Amlodipine Besylate 1 tab PO DAILY #30 tab 06/11/22 Benzonatate [Tessalon Perle*] 100 mg PO TID PRN #30 cap 06/11/22 Cetirizine HCl [Zyrtec*] 10 mg PO DAILY #30 tab 06/11/22 Docusate Sodium 100 mg PO DAILY #30 cap 06/11/22 Ergocalciferol (Vitamin D2) [Vitamin D2] 1 cap PO EVERY 7TH DAY #4 cap 06/11/22 Famotidine [Pepcid*] 20 mg PO DAILY #30 tab 06/11/22 Fluticasone [Flonase 50MCG Nasal [place]*] 2 sprays SERJIO BID #1 btl 06/11/22 Folic Acid 1 mg PO DAILY #30 tab 06/11/22 Gabapentin 100 mg PO BEDTIME #30 cap 06/11/22 Ipratropium/Albuterol Sulfate [Iprat-Albut 0.5-3(2.5) mg/3 ml] 3 ml IH Q6H #120 vial 06/11/22 Levothyroxine Sodium 150 mcg PO DAILY #30 cap 06/11/22 Sennosides [Senna] 1 tab PO BID #60 tab 06/11/22 Sitagliptin Phosphate [Januvia] 1 tab PO DAILY #30 tab 06/11/22 Aspirin Chewable [Aspirin Chewable*] 81 mg PO DAILY #30 tab.chew 09/25/22 Valacyclovir [Valtrex*] 500 mg PO Q24H #14 tab 09/25/22 Albuterol Neb [Proventil 0.083% Neb Soln] 2.5 mg IH [id number] #60 amp 09/28/22 Ipratropium Neb [Atrovent*] 0.5 mg IH [id number] #60 amp 09/28/22 Levothyroxine [Synthroid*] 0.15 mg PO DAILYAC #60 tab 09/28/22 Nebulizer 1 each MC DAILY #1 ea 09/28/22 Nebulizer Accessories [Aeroneb Go] 1 each MC DAILY #1 ea 09/28/22 predniSONE [Prednisone*] 20 mg PO BID #20 tab 09/28/22 Sodium Chloride Tab [Sodium Chloride*] 1 gm PO DAILY #30 tab 09/29/22 New Medications: Nebulizer Accessories [Aeroneb Go] 1 each MC DAILY #1 ea Aspirin Chewable [Aspirin Chewable*] 81 mg PO DAILY #30 tab.chew Ipratropium Neb [Atrovent*] 0.5 mg IH [id number] #60 amp Nebulizer 1 each MC DAILY #1 ea predniSONE [Prednisone*] 20 mg PO BID #20 tab Albuterol Neb [Proventil 0.083% Neb Soln] 2.5 mg IH [id number] #60 amp Sodium Chloride Tab [Sodium Chloride*] 1 gm PO DAILY #30 tab Levothyroxine [Synthroid*] 0.15 mg PO DAILYAC #60 tab Valacyclovir [Valtrex*] 500 mg PO Q24H #14 tab Diet: Renal Activity: Fall precautions Followup: Sharon Boss MD [ACTIVE - CAN ADMIT] - 1-2 Weeks Brianna Garrido MD [Primary Care Provider] - 1-2 Weeks Physician Review: Patient Assessed, Agree with Above Assessment and Plan Time spent managing pt's care (in minutes): 15
== END 2022-10-03 22:15 | disposition short-term general hospital (02) | DRG 154 ==
LOC: ER 05:53 → ERHOLD 09:56 → 4TH 12:49
PROVIDERS: ADMIT Internal Medicine Nephrology; ATTEND Internal Medicine Nephrology
PROC: 5A1D70Z Performance of Urinary Filtration, Intermittent, Less than 6 Hours Per Day (ICD-10-PCS; 2022-09-24)
PROC: 5A09557 Assistance with Respiratory Ventilation, Greater than 96 Consecutive Hours, Continuous Positive Airway Pressure (ICD-10-PCS; principal; 2022-09-25)
DX: B00.1 Herpesviral vesicular dermatitis (principal); J96.22 Acute and chronic respiratory failure with hypercapnia; N18.6 End stage renal disease; I12.0 Hypertensive chronic kidney disease with stage 5 chronic kidney disease or end stage renal disease; E87.20 Acidosis, unspecified; J96.11 Chronic respiratory failure with hypoxia; N25.81 Secondary hyperparathyroidism of renal origin; E87.1 Hypo-osmolality and hyponatremia; T82.41XA Breakdown (mechanical) of vascular dialysis catheter, initial encounter; E11.22 Type 2 diabetes mellitus with diabetic chronic kidney disease; E11.40 Type 2 diabetes mellitus with diabetic neuropathy, unspecified; E11.65 Type 2 diabetes mellitus with hyperglycemia; D63.1 Anemia in chronic kidney disease; E03.9 Hypothyroidism, unspecified; E87.70 Fluid overload, unspecified; K21.9 Gastro-esophageal reflux disease without esophagitis; K59.00 Constipation, unspecified; E87.5 Hyperkalemia; G25.81 Restless legs syndrome; E78.00 Pure hypercholesterolemia, unspecified; B02.9 Zoster without complications; Z60.2 Problems related to living alone; Z93.0 Tracheostomy status; Z99.2 Dependence on renal dialysis; Z79.82 Long term (current) use of aspirin; Z79.52 Long term (current) use of systemic steroids; Z99.81 Dependence on supplemental oxygen; Z79.899 Other long term (current) drug therapy; Z79.890 Hormone replacement therapy; Z91.158 Patient's noncompliance with renal dialysis for other reason; Y84.8 Other medical procedures as the cause of abnormal reaction of the patient, or of later complication, without mention of misadventure at the time of the procedure
CPT/HCPCS: 36415; 71045; 80048; 80053; 80061; 80069; 80076; 82550; 82805; 82947; 83036; 83690; 83735; 83880; 84100; 84439; 84443; 84484; 85025; 85610; 85730; 86140; 86704; 86706; 87340; 90935; 93005; 94660; 94760; 97116; 97161; 99285; J0360; J1644; J1815; J2930; J7512; J7613; J7644; Q5105

== ENCOUNTER 2022-10-15 17:35 | Inpatient (IN) | payer OTHER ==
--- OUTSIDE RECORDS SUMMARY | 2022-10-15 17:59 | XMS REPORT | Continuity of Care Document ---
:1965 Author Organization [facility] t Address [address] [facility] [address] [place] [address] Care Team Providers Name Role Phone Asked, No Pcp Primary Care Physician Unavailable [id number] Attending Clinician Unavailable IRMA NICHOLSON Attending Clinician Unavailable SYLVAIN OLIVARES Attending Clinician Unavailable Doctor Unassigned, [place] Attending Clinician Unavailable Bambi Peraza RN Attending Clinician Unavailable CAMILLE LNADEROS Attending Clinician Unavailable CAMILLE LANDEROS Attending Clinician Unavailable HO DENNISON Attending Clinician Unavailable JACINTO SIMPSON Attending Clinician Unavailable JOSELUIS FERNANDEZ Attending Clinician Unavailable GERRI VINCENT Attending Clinician [...] Clinician Unavailable HUNTER GIPSON Attending Clinician Unavailable [id number] Admitting Clinician Unavailable IRMA NICHOLSON Admitting Clinician Unavailable SYLVAIN OLIVARES Admitting Clinician Unavailable CAMILLE LANDEROS Admitting Clinician Unavailable GERRI VINCENT Admitting Clinician Unavailable Leo Mcginnis Anav Admitting Clinician Unavailable BETTINA SHEEHAN Admitting Clinician Unavailable Payers Payer Name Policy Type Policy Number Effective Date Expiration Date Melodie cho CDC REVIEW [id number] 2019 00:00:00 MEDICAID OF [place] [id number] 2019 00:00:00 [facility] [id number] MEDICARE PART A [id number] 2018 \T\ B 00:00:00 Problems Condition Condition Condition Status Onset Resolution Last Treating Co mments Source Name Details Category Date Date Treatment Clinician Date Thrombosis Thrombosis Disease Active U nivers of of 6-04 ity of dialysis dialysis 00:00: [place] shunt, shunt, 00 Medical initial initial Branch encounter encounter Nonobstruc Nonobstruc Disease Active U nivers tive [...] hypertensi 05-23 Ann-Marie kes on on 00:00: [address] Dizziness Dizziness Disease Active Uni vers 9-10 ity of 00:00: [address] Branch Pre-syncop Pre-syncop Disease Active U nivers e e - ity of 00:00: [address] Branch Elevated Elevated Disease Active 2017-05 Unive rs troponin I troponin I 05-04 it y of level level 00:00: [address] Branch Elevated Elevated Disease Active 2017-05 Unive rs brain brain 05-04 ity of nat[place]ure[place] c peptide c peptide 00 Medi benjy (BNP) (BNP) Branch level level Essential Essential Disease Active 2017-05 Uni vers hypertensi hypertensi - it y of on on 00:00: [address] Branch Dyslipidem Dyslipidem Disease Active 2017-05 U nivers ia ia 05-04 ity of 00:00: [address] Branch Hypocalcem Hypocalcem Disease Active 2017-05 U nivers ia ia 05-03 ity of 00:00: [address] Branch ESRD (end ESRD (end Disease Active Overview: Methodi stage stage [facility]in [facility] renal renal g of [facility] disease) disease) note l on on might be dialysis dialysis different from the original. 06/2018 Allergies, Adverse Reactions, Alerts Allergy Allergy Status Severity Reaction(s) Onset Inactive Treating Comm ents Source Name Type Date Date Clinician NKA Allergy Active 2021-05 ENCCLR 06-22 13:07: 28 NKA Allergy Active 2021-05 ENCCLR 06-22 13:07: 28 NKA Allergy Active 2021-05 ENCCLR 06-22 13:07: 28 NKA Allergy Active 2021-05 ENCCLR [...] Active Univers ALLERGIE Class ity of [facility] [place] [facility] Family History Family Member Diagnosis Comments Start Date Stop Date Source Natural father Alcohol abuse [facility] Natural sister Diabetes [facility] Natural sister Kidney disease [facility] Natural sister No Known Problem [facility] Natural brother No Known Problem [facility] Natural mother No Known Problem [facility] Social History Social Habit Start Date Stop Date Quantity Comments Source History SDOH [facility] Alcohol Comment Medical C enter History of tobacco Cigarette Smoker [facility] use Medical Center History SDOH [facility] Alcohol Std Drinks Medica l Center History SDOH [facility] Alcohol [facility]inge Medical [facility] Gender identity [facility] Sexual orientation Method ist Hospital History SDOH Social Unive rsity of Connections [facility] Med ical Together Branch History SDOH Social Unive rsity of Connections [facility] Medical Branch History SDOH Social Unive rsity of Connections [place] [facility] Membership Branch History SDOH Social Unive rsity of Connections [place] [facility] Meetings Branch History SDOH Social Unive rsity of Connections [facility] Medical Branch History SDOH Social 2022-10-06 2022-10-06 5 Unive rsity of Connections Phone 00:00:00 00:00:00 [place] M edical Branch History SDOH 2022-10-06 2022-10-06 0 University o f Physical Activity 00:00:00 00:00:00 [place] [facility] DPW Branch History SDOH 2022-10-06 2022-10-06 0 University o f Physical Activity 00:00:00 00:00:00 [place] M edical MPS Branch History SDOH 2022-10-06 2022-10-06 5 University o f Financial 00:00:00 00:00:00 [place] [facility] History SDWA Food 2022-10-06 2022-10-06 1 Univers ity of Worry 00:00:00 00:00:00 [place] [facility] History SDOH Food 2022-10-06 2022-10-06 1 Univers ity of Scarcity 00:00:00 00:00:00 [place] [facility] History SDWA 2022-10-06 2022-10-06 2 University o f Transport Med 00:00:00 00:00:00 [place] Medic al Branch History SDWA 2022-10-06 2022-10-06 2 University o f Transport Non-Med 00:00:00 00:00:00 [place] M edical Branch History SDWA 2022-10-06 2022-10-06 2 University o f Housing Unable to 00:00:00 00:00:00 [place] M edical Pay Branch History [facility] 2022-10-06 2022-10-06 1 University o f Housing Places 00:00:00 00:00:00 [place] Medi benjy Lived Branch History SDWA 2022-10-06 2022-10-06 2 University o f Housing Homeless 00:00:00 00:00:00 [facility] dical Last Year Branch Tobacco use and 2022-10-04 2022-10-04 Smokeless Universit y of exposure 00:00:00 00:00:00 tobacco non-user [place] Me dical Branch Exposure to 2021-11-22 2021-12-02 Not sure University of SARS-CoV-2 (event) 00:00:00 14:04:00 [facility] Branch Cigarettes smoked 2019-12-14 2019-12-[address] [facility] current (pack per 00:00:00 00:00:00 Medical Center day) - Reported Cigarette 2019-12-14 2019-12-[address] [facility] pack-years 00:00:00 00:00:00 Medical Center History [facility] 2019-05-23 2019-05-[address] [facility] Alcohol Frequency 00:00:00 00:00:00 [facility] Alcohol intake 2019-01-06 2019-01-06 Lifetime [facility] 00:00:00 00:00:00 non-drinker Hospital (finding) History of Social 2019-01-05 2019-01-[address] [facility] 00:00:00 00:00:00 Hospital Sex [birth year] At [birth year] [facility] 00:00:00 00:00:00 Hospital Smoking Status Start Date Stop Date Source Never smoked tobacco [facility] Ex-smoker 2018-03-03 00:00:00 2018-03-03 00:00:00 [facility] Medications Ordered Filled Start Stop Current Ordering Indication Dosage Frequency Signature Comments Components Source Medication Medication Date Date Medication? Clinician (SIG) Name Name aspirin 81 2022-0 Yes [id number] 81mg Take 1 Univers mg chewable 6-08 tablet by ity of tablet 00:00: mouth in [place] the Medical morning. Branch cetirizine 2022-0 Yes [id number] 10mg Take 1 Univers 10 mg 6-08 tablet by ity of tablet 00:00: mouth in [place] the Medical morning. Branch docusate 2022-0 Yes [id number] 100mg Take 1 U nivers 100 mg 6-08 capsule by ity of capsule 00:00: mouth in [place] the Medical morning. Branch foLIC acid 2022-0 Yes [id number] 1mg Take 1 Univers 1 mg tablet 6-08 tablet by ity of 00:00: mouth in [place] the Medical morning. Branch levothyroxi 2022-0 Yes [id number] 150ug Take 1 Univers ne 150 mcg 6-08 tablet by ity of tablet 00:00: mouth [place] 00 every Medical morning. Branch predniSONE 2022-0 Yes [id number] 20mg Take 1 Univers 20 mg 6-08 tablet by ity of tablet 00:00: mouth in [place] the Medical morning Branch and 1 tablet in the evening. sennosides 2022-0 Yes [id number] 8.6mg Take 1 Univers (SENOKOT) 6-08 tablet by ity o f 8.6 mg 00:00: mouth [facility] the Medical morning Branch and 1 tablet in the evening. sevelamer 2022-0 Yes [id number] 2400mg Take 3 Univers 800 mg 6-08 tablets by ity of tablet 00:00: mouth in [place] the Medical morning Branch and 3 tablets at noon and 3 tablets in the evening. Take with meals. amLODIPine 2022-0 Yes [id number] 10mg Take 1 Univers 10 mg 6-08 tablet by ity of tablet 00:00: mouth in [place] the Medical morning. Branch aspirin 81 2022-0 Yes [id number] 81mg Take 1 Univers mg chewable 6-08 tablet by ity of tablet 00:00: mouth in [place] the Medical morning. Branch cetirizine 2022-0 Yes [id number] 10mg Take 1 Univers 10 mg 6-08 tablet by ity of tablet 00:00: mouth in [place] the Medical morning. Branch docusate 2022-0 Yes [id number] 100mg Take 1 U nivers 100 mg 6-08 capsule by ity of capsule 00:00: mouth in [place] the Medical morning. Branch foLIC acid 2022-0 Yes [id number] 1mg Take 1 Univers 1 mg tablet 6-08 tablet by ity of 00:00: mouth in [place] the Medical morning. Branch levothyroxi 2022-0 Yes [id number] 150ug Take 1 Univers ne 150 mcg 6-08 tablet by ity of tablet 00:00: mouth [place] [id number] every Medical morning. Branch predniSONE 2022-0 Yes [id number] 20mg Take 1 Univers 20 mg 6-08 tablet by ity of tablet 00:00: mouth in [place] the Medical morning Branch and 1 tablet in the evening. sennosides 2022-0 Yes [id number] 8.6mg Take 1 Univers (SENOKOT) 6-08 tablet by ity o f 8.6 mg 00:00: mouth in [facility] the Medical morning Branch and 1 tablet in the evening. sevelamer 2022-0 Yes [id number] 2400mg Take 3 Univers 800 mg 6-08 tablets by ity of tablet 00:00: mouth in [place] the Medical morning Branch and 3 tablets at noon and 3 tablets in the evening. Take with meals. amLODIPine 2022-0 Yes [id number] 10mg Take 1 Univers 10 mg 6-08 tablet by ity of tablet 00:00: mouth in [place] the Medical morning. Branch Dose 2021-05 No Unknown 2-14 00:00: 00 [...] Unknown 2-13 00:00: 00 levothyroxi 0 Yes [id number] 224ug Take 2 Univers ne 112 mcg 8-23 tablets by ity of tablet 00:00: mouth [place] 00 every Medical morning. Branch levothyroxi Yes [id number] 224ug Take 2 Univers ne 112 mcg 8-23 tablets by ity of tablet 00:00: mouth [place] 00 every Medical morning. Branch levothyroxi Yes [id number] 224ug Take 2 Univers ne 112 mcg 8-23 tablets by ity of tablet 00:00: mouth every Medical morning. [place] levothyroxi 2021-0 Yes [id number] 224ug Take 2 Univers ne 112 mcg [...] EVERY 00 MORNING &lt 2-0 No 800 8-10 00:00: 00 &lt 2022-0 [...] EVERY 00 MORNING &lt 2-0 No 800 8-10 00:00: 00 &lt 2022-0 [...] &lt 2-0 No 10 11-24 00:00: 00 &lt 2022-0 [...] No Unknown 4-07 00:00: 00 Simoneuvia 25 2022-0 No 1mg [...] Dose 2022-0 No Unknown 2-04 00:00: 00 Reshmaia 25 2-0 No 1mg mg tablet 2-04 00:00: 00 Dose 2022-0 No Unknown 2-04 00:00: 00 Dose 2022-0 No Unknown 2-04 00:00: 00 Reshmaia 25 2-0 No 1mg mg tablet 2-04 [...] tablet by ity of tablet 00:00: mouth [place] 00 every Medical morning. Branch UNITHROID 2021-0 2021- No 1{tbl} Take 1 Uni vers 25 mcg 2-04 -23 tablet by ity of tablet 00:00: 00:00 mouth [place] 00 :00 every Medical morning. Branch lisinopriL 2021-0 Yes 5mg Take 5 mg Un capri 5 mg tablet - by mouth ity of 00:00: daily. [address] lisinopriL 2021-0 Yes 5mg Take 5 mg Un capri 5 mg tablet 05-09 by mouth ity of 00:00: daily. [address] lisinopriL 2022-0 Yes 5mg Take 5 mg Un capri 5 mg tablet 1-07 by mouth ity of 00:00: daily. [address] lisinopriL 2-0 Yes 5mg Take 5 mg Un capri 5 mg tablet -07 by mouth ity of 00:00: daily. [address] lisinopriL 2021-0 Yes 5mg Take 5 mg Un capri 5 mg tablet 1-07 by mouth ity of 00:00: daily. [address] amlodipine 2020-05 No 1mg 10 mg 2-30 tablet 00:00: 00 amlodipine 1 No 1mg 10 mg 2-30 tablet 00:00: 00 amlodipine 2020-1 No 1mg 10 mg 2-30 tablet 00:00: 00 Dose 2020-1 No Unknown 2-30 00:00: 00 Dose 1 No Unknown 2-30 00:00: 00 amlodipine 2020-1 No 1mg 10 mg 2-30 tablet 00:00: 00 amlodipine 2020-1 No 1mg 10 mg 2-30 tablet 00:00: 00 amlodipine 1 No 1mg 10 mg 2-30 tablet 00:00: [...] mg tablet 00 Dose 2021-0 No Unknown 6- 00:00: 00 Dose 2021-0 No Unknown 6- 00:00: 00 Dose 2021-0 No Unknown 6- 00:00: 00 fenofibrate 2021-0 No 1mg nanocrystal 6-07 lized 145 00:00: mg tablet 00 Dose 2021-0 No Unknown 6- [...] 2019- No Unknown 2-02 00:00: 00 Dose 2020-1 No Unknown 2-02 00:00: 00 diclofenac 2019-1 No 1% 1 [...] Lukes 10 MG 17:30: nightly. Medical tablet [address] [place] [address] calcium 2020-0 Yes 3{tbl} Q.[id number] Take [address] carbonate 8-15 [id number] tablets by [facility] (TUMS) 500 17:30: 3D mouth 3 Medi benjy mg chewable 21 (three) Cente r tablet times daily. furosemide 2020-0 Yes 20mg QD Take [address] (LASIX) 20 8-15 by mouth [facility]ukes MG tablet 17:30: daily. Medica l [address] lovastatin 2020-0 Yes 10mg QD Take [address] (MEVACOR) 8-15 by mouth [facility]ukes 10 MG 17:30: nightly. Medical tablet [address] calcium 2020-0 Yes 3{tbl} Q.[id number] Take [address] carbonate 8-15 [id number] tablets by [facility] (TUMS) 500 17:30: 3D mouth 3 Medi benjy mg chewable 21 (three) Cente r tablet times daily. furosemide 2020-0 Yes 20mg QD Take [address] (LASIX) 20 8-15 by mouth [facility]ukes MG tablet 17:30: daily. Medica [address] lovastatin 2020-0 Yes 10mg QD Take [address] (MEVACOR) 8-15 by mouth [facility]ukes 10 MG 17:30: nightly. Medical tablet [address] [place] [address] calcium 2020-0 Yes 3{tbl} Q.[id number] Take [address] carbonate 8-15 [id number] tablets by [facility] (TUMS) 500 17:30: 3D mouth 3 Medi benjy mg chewable 21 (three) Cente r tablet times daily. furosemide 2020-0 Yes 20mg QD Take [address] (LASIX) 20 8-15 by mouth [facility] MG tablet 17:30: [facility] [address] lovastatin 2020-0 Yes 10mg QD Take [address] (MEVACOR) 8-15 by mouth [facility] 10 MG 17:30: nightly. Medical tablet [address] [place] [address] calcium 2020-0 Yes 3{tbl} Q.[id number] Take [address] carbonate 8-15 [id number] tablets by [facility] (TUMS) 500 17:30: 3D mouth 3 Medi benjy mg chewable 21 (three) Cente r tablet times daily. furosemide 2020-0 Yes 20mg QD Take [address] (LASIX) 20 8-15 by mouth [facility] MG tablet 17:30: [facility]. [facility] [address] lovastatin 2020-0 Yes 10mg QD Take [address] (MEVACOR) 8-15 by mouth [facility]ukes 10 MG 17:30: nightly. Medical tablet [address] [place] [address] calcium 2020-0 Yes 3{tbl} Q.[id number] Take [address] carbonate 8-15 [id number] tablets by [facility] (TUMS) 500 17:30: 3D mouth 3 Medi benjy mg chewable 21 (three) Cente r tablet times daily. furosemide 2020-0 Yes 20mg QD Take [address] (LASIX) 20 8-15 by mouth [facility] MG tablet 17:30: daily. [facility] [address] lovastatin 2020-0 Yes 10mg QD Take [address] (MEVACOR) 8-15 by mouth [facility] 10 MG 17:30: nightly. Medical tablet [address] [place] [address] calcium 2020-0 Yes 3{tbl} Q.[id number] Take [address] carbonate 8-15 [id number] tablets by [facility] (TUMS) 500 17:30: 3D mouth 3 Medi benjy mg chewable 21 (three) Cente r tablet times daily. furosemide 2020-0 Yes 20mg QD Take [address] (LASIX) 20 8-15 by mouth [facility]ukes MG tablet 17:30: daily. [address] lovastatin 2020-0 Yes 10mg QD Take [address] (MEVACOR) 8-15 by mouth [facility]ukes 10 MG 17:30: nightly. Medical tablet [address] [place] [address] calcium 2020-0 Yes 3{tbl} Q.[id number] Take [address] carbonate 8-15 [id number] tablets by [facility] (HashtagoS) 500 17:30: 3D mouth 3 Medi benjy mg chewable 21 (three) Cente r tablet times daily. furosemide 2020-0 Yes 20mg QD Take [address] (LASIX) 20 8-15 by mouth [facility]ukes MG tablet 17:30: daily. [address] lovastatin 2020-0 Yes 10mg QD Take [address] (MEVACOR) 8-15 by mouth [facility]ukes 10 MG 17:30: nightly. Medical tablet [address] [place] [address] calcium 2020-0 Yes 3{tbl} Q.[id number] Take [address] carbonate 8-15 [id number] tablets by [facility] (TUMS) 500 17:30: 3D mouth 3 Medi benjy mg chewable 21 (three) Cente r tablet times daily. furosemide 2020-0 Yes 20mg QD Take [address] (LASIX) 20 8-15 by mouth [facility]ukes MG tablet 17:30: daily. [address] lovastatin 2020-0 Yes 10mg QD Take [address] (MEVACOR) 8-15 by mouth [facility]ukes 10 MG 17:30: nightly. Medical tablet [address] [place] [address] calcium 2020-0 Yes 3{tbl} Q.[id number] Take [address] carbonate 8-15 [id number] tablets by [facility] (TUMS) 500 17:30: 3D mouth 3 Medi benjy mg chewable 21 (three) Cente r tablet times daily. furosemide 2020-0 Yes 20mg QD Take [address] (LASIX) 20 8-15 by mouth [facility] MG tablet 17:30: daily. [facility] [address] lovastatin 2020-0 Yes 10mg QD Take [address] (MEVACOR) 8-15 by mouth [facility]ukes 10 MG 17:30: nightly. Medical tablet [address] calcium 2020-0 Yes 3{tbl} Q.[id number] Take [address] carbonate 8-15 [id number] tablets by [facility] (HashtagoS) 500 17:30: 3D mouth 3 Medi benjy mg chewable 21 (three) Cente r tablet times daily. furosemide 2020-0 Yes 20mg QD Take [address] (LASIX) 20 8-15 by mouth [facility] MG tablet 17:30: daily. [facility] [address] lovastatin 2020-0 Yes 10mg QD Take [address] (MEVACOR) 8-15 by mouth [facility] 10 MG 17:30: nightly. Medical tablet [address] calcium 2020-0 Yes 3{tbl} Q.[id number] Take [address] carbonate 8-15 [id number] tablets by [facility] (HashtagoS) 500 17:30: 3D mouth 3 Medi benjy mg chewable 21 (three) Cente r tablet times daily. furosemide 2020-0 Yes 20mg QD Take [address] (LASIX) 20 8-15 by mouth [facility] MG tablet 17:30: daily. [facility] [address] lovastatin 2020-0 Yes 10mg QD Take [address] (MEVACOR) 8-15 by mouth [facility]ukes 10 MG 17:30: nightly. Medical tablet [address] [place] [address] calcium 2020-0 Yes 3{tbl} Q.[id number] Take [address] carbonate 8-15 [id number] tablets by [facility] (TUMS) 500 17:30: 3D mouth 3 Medi benjy mg chewable 21 (three) Cente r tablet times daily. furosemide 2020-0 Yes 20mg QD Take [address] (LASIX) 20 8-15 by mouth [facility]ukes MG tablet 17:30: daily. Medica [address] lovastatin 2020-0 Yes 10mg QD Take [address] (MEVACOR) 8-15 by mouth [facility]ukes 10 MG 17:30: nightly. Medical tablet [address] calcium 2020-0 Yes 3{tbl} Q.[id number] Take [address] carbonate 8-15 [id number] tablets by [facility] (TUMS) 500 17:30: 3D mouth 3 Medi benjy mg chewable 21 (three) Cente r tablet times daily. furosemide 2020-0 Yes 20mg QD Take [address] (LASIX) 20 8-15 by mouth [facility] MG tablet 17:30: daily. [facility] [address] lovastatin 2020-0 Yes 10mg QD Take [address] (MEVACOR) 8-15 by mouth [facility]ukes 10 MG 17:30: nightly. Medical tablet [address] [place] [address] calcium 2020-0 Yes 3{tbl} Q.[id number] Take [address] carbonate 8-15 [id number] tablets by [facility] (TUMS) 500 17:30: 3D mouth 3 Medi benjy mg chewable 21 (three) Cente r tablet times daily. furosemide 2020-0 Yes 20mg QD Take [address] (LASIX) 20 8-15 by mouth [facility] MG tablet 17:30: daily. [facility] [address] lovastatin 2020-0 Yes 10mg QD Take [address] (MEVACOR) 8-15 by mouth Lukes 10 MG 17:30: nightly. Medical tablet [address] calcium 2020-0 Yes 3{tbl} Q.[id number] Take [address] carbonate 8-15 [id number] tablets by [facility] (TUMS) 500 17:30: 3D mouth 3 Medi benjy mg chewable 21 (three) Cente r tablet times daily. furosemide 2020-0 Yes 20mg QD Take [address] (LASIX) 20 8-15 by mouth [facility] MG tablet 17:30: daily. [facility] [address] lovastatin 2020-0 Yes 10mg QD Take [address] (MEVACOR) 8-15 by mouth [facility]ukes 10 MG 17:30: nightly. Medical tablet [address] calcium 2020-0 Yes 3{tbl} Q.[id number] Take [address] carbonate 8-15 [id number] tablets by [facility] (TUMS) 500 17:30: 3D mouth 3 Medi benjy mg chewable 21 (three) Cente r tablet times daily. furosemide 2020-0 Yes 20mg QD Take [address] (LASIX) 20 8-15 by mouth [facility]ukes MG tablet 17:30: daily. [address] lovastatin 2020-0 Yes 10mg QD Take [address] (MEVACOR) 8-15 by mouth [facility]ukes 10 MG 17:30: nightly. Medical tablet [address] [place] [address] calcium 2020-0 Yes 3{tbl} Q.[id number] Take [address] carbonate 8-15 [id number] tablets by [facility] (TUMS) 500 17:30: 3D mouth 3 Medi benjy mg chewable 21 (three) Cente r tablet times daily. furosemide 2020-0 Yes 20mg QD Take [address] (LASIX) 20 8-15 by mouth [facility]ukes MG tablet 17:30: daily. [address] lovastatin 2020-0 Yes 10mg QD Take [address] (MEVACOR) 8-15 by mouth [facility]ukes 10 MG 17:30: nightly. Medical tablet [address] [place] [address] calcium 2020-0 Yes 3{tbl} Q.[id number] Take [address] carbonate 8-15 [id number] tablets by [facility] (TUMS) 500 17:30: 3D mouth 3 Medi benjy mg chewable 21 (three) Cente r tablet times daily. furosemide 2020-0 Yes 20mg QD Take [address] (LASIX) 20 8-15 by mouth [facility] MG tablet 17:30: daily. [address] lovastatin 2020-0 Yes 10mg QD Take [address] (MEVACOR) 8-15 by mouth [facility]ukes 10 MG 17:30: nightly. Medical tablet [address] [place] [address] calcium 2020-0 Yes 3{tbl} Q.[id number] Take [address] carbonate 8-15 [id number] tablets by [facility] (TUMS) 500 17:30: 3D mouth 3 Medi benjy mg chewable 21 (three) Cente r tablet times daily. furosemide 2020-0 Yes 20mg QD Take [address] (LASIX) 20 8-15 by mouth [facility]ukes MG tablet 17:30: daily. [address] lovastatin 2020-0 Yes 10mg QD Take [address] (MEVACOR) 8-15 by mouth [facility]ukes 10 MG 17:30: nightly. Medical tablet [address] calcium 2020-0 Yes 3{tbl} Q.[id number] Take [address] carbonate 8-15 [id number] tablets by [facility] (TUMS) 500 17:30: 3D mouth 3 Medi benjy mg chewable 21 (three) Cente r tablet times daily. furosemide 2020-0 Yes 20mg QD Take [address] (LASIX) 20 8-15 by mouth [facility]ukes MG tablet 17:30: daily. Medica l [address] [place] [address] lovastatin 2020-0 Yes 10mg QD Take [address] (MEVACOR) 8-15 by mouth [facility]ukes 10 MG 17:30: nightly. Medical tablet [address] [place] [address] calcium 2020-0 Yes 3{tbl} Q.[id number] Take [address] carbonate 8-15 [id number] tablets by [facility] (TUMS) 500 17:30: 3D mouth 3 Medi benjy mg chewable 21 (three) Cente r tablet times daily. furosemide 2020-0 Yes 20mg QD Take [address] (LASIX) 20 8-15 by mouth [facility] MG tablet 17:30: [facility]. [facility] [address] lovastatin 2020-0 Yes 10mg QD Take [address] (MEVACOR) 8-15 by mouth [facility]ukes 10 MG 17:30: nightly. Medical tablet [address] [place] [address] calcium 2020-0 Yes 3{tbl} Q.[id number] Take [address] carbonate 8-15 [id number] tablets by [facility] (TUMS) 500 17:30: 3D mouth 3 Medi benjy mg chewable 21 (three) Cente r tablet times daily. furosemide 2020-0 Yes 20mg QD Take [address] (LASIX) 20 8-15 by mouth [facility] MG tablet 17:30: daily. [facility] [address] lovastatin 2020-0 Yes 10mg QD Take [address] (MEVACOR) 8-15 by mouth [facility]ukes 10 MG 17:30: nightly. Medical tablet [address] [place] [address] calcium 2020-0 Yes 3{tbl} Q.[id number] Take [address] carbonate 8-15 [id number] tablets by [facility] (TUMS) 500 17:30: 3D mouth 3 Medi benjy mg chewable 21 (three) Cente r tablet times daily. furosemide 2020-0 Yes 20mg QD Take [address] (LASIX) 20 8-15 by mouth [facility] MG tablet 17:30: [facility]. [facility] [address] lovastatin 2020-0 Yes 10mg QD Take [address] (MEVACOR) 8-15 by mouth [facility] 10 MG 17:30: nightly. Medical tablet [address] [place] [address] calcium 2020-0 Yes 3{tbl} Q.[id number] Take [address] carbonate 8-15 [id number] tablets by [facility] (TUMS) 500 17:30: 3D mouth 3 Medi benjy mg chewable 21 (three) Cente r tablet times daily. furosemide 2020-0 Yes 20mg QD Take [address] (LASIX) 20 8-15 by mouth [facility] MG tablet 17:30: daily. [address] lovastatin 2020-0 Yes 10mg QD Take [address] (MEVACOR) 8-15 by mouth [facility] 10 MG 17:30: nightly. Medical tablet [address] [place] [address] calcium 2020-0 Yes 3{tbl} Q.[id number] Take [address] carbonate 8-15 [id number] tablets by [facility] (HashtagoS) 500 17:30: 3D mouth 3 [facility] mg chewable 21 (three) Cente r tablet times daily. furosemide 2020-0 Yes 20mg QD Take [address] [facility] (LASIX) 20 8-15 [facility] tablet 17:30: daily. [address] lovastatin 2020-0 Yes 10mg QD Take [address] (MEVACOR) 8-15 [facility] 10 MG 17:30: nightly. Medical tablet [address] [place] [address] calcium 2020-0 Yes 3{tbl} Q.[id number] Take [address] [facility] carbonate 8-15 [id number] tablets by [facility] (TUMS) 500 17:30: 3D mouth 3 [facility] mg chewable 21 (three) Cente r tablet times daily. furosemide 2020-0 Yes 20mg QD Take [address] (LASIX) 20 8-15 [facility] tablet 17:30: daily. [address] lovastatin 2020-0 Yes 10mg QD Take [address] (MEVACOR) 8-15 [facility] 10 MG 17:30: nightly. Medical tablet [address] [place] [address] calcium 2020-0 Yes 3{tbl} Q.[id number] Take [address] [facility] carbonate 8-15 [id number] tablets by [facility] (TUMS) 500 17:30: 3D mouth 3 [facility] mg chewable 21 (three) Cente r tablet times daily. furosemide 2020-0 Yes 20mg QD Take [address] (LASIX) 20 8-15 [facility] tablet 17:30: daily. Medica l [address] [place] lovastatin 2020-0 Yes 10mg QD Take [address] (MEVACOR) 8-15 [facility] 10 MG 17:30: nightly. Medical tablet [address] [place] calcium 2020-0 Yes 3{tbl} Q.[id number] Take [address] [facility] carbonate 8-15 [id number] tablets [facility] (TUMS) 500 17:30: 3D mouth 3 [facility] mg chewable 21 (three) Cente r tablet times daily. furosemide 2020-0 Yes 20mg QD Take [address] (LASIX) 20 8-15 [facility] tablet 17:30: daily. Medica l [address] [place] cyclobenzap 2020-0 Yes 1{tbl} QD Take [address] [facility] [address] [facility] 8-04 tablet by [facility] (FLEXERIL) 00:00: mouth Medica l 10 MG 00 daily. [place] tablet cyclobenzap 2020-0 Yes 1{tbl} QD Take [address] [facility] [address] [facility] 8-04 tablet by [facility] (FLEXERIL) 00:00: mouth Medica l 10 MG 00 daily. [place] tablet cyclobenzap 2020-0 Yes 1{tbl} QD Take [address] [facility] 8-04 tablet [facility] (FLEXERIL) 00:00: mouth Medica l 10 MG 00 daily. [place] tablet cyclobenzap 2020-0 Yes 1{tbl} QD Take [address] [facility] 8-04 tablet by [facility] (FLEXERIL) 00:00: mouth Medica l 10 MG 00 daily. [place] tablet cyclobenzap 2020-0 Yes 1{tbl} QD Take [address] [facility] 8-04 tablet by [facility] (FLEXERIL) 00:00: mouth Medica l 10 MG 00 daily. [place] tablet cyclobenzap 2020-0 Yes 1{tbl} QD Take [...] [facility] (ERGOCALCIF 00:00: mouth once Medical AJYESH) 1,250 00 a week. Cente r mcg [...] MG 00:00: mouth Medical tablet 00 daily. [place] atorvastati 2019-0 Yes 1{tbl} QD Take [address] [facility] (LIPITOR) 5-15 tablet by [facility] 10 MG 00:00: mouth Medical tablet 00 daily. [place] atorvastati 2019-0 Yes 1{tbl} QD Take [address] [facility] (LIPITOR) 5-15 tablet by [facility] 10 MG 00:00: mouth Medical tablet 00 daily. [place] atorvastati 2019-0 Yes 1{tbl} QD Take [address] [facility] (LIPITOR) 5-15 tablet by [facility] 10 MG 00:00: mouth Medical tablet 00 daily. [place] atorvastati 2019-0 Yes 1{tbl} QD Take [address] [facility] (LIPITOR) 5-15 tablet by [facility] 10 MG 00:00: mouth Medical tablet 00 daily. [place] atorvastati 2019-0 Yes 1{tbl} QD Take [address] [facility] (LIPITOR) 5-15 tablet by [facility] 10 MG 00:00: mouth Medical tablet 00 daily. [place] atorvastati 2019-0 Yes 1{tbl} QD Take [address] [facility] (LIPITOR) 5-15 tablet by [facility] 10 MG 00:00: mouth Medical tablet 00 daily. [place] atorvastati 2019-0 Yes 1{tbl} QD Take [address] [facility] (LIPITOR) 5-15 tablet by [facility] 10 MG 00:00: mouth Medical tablet 00 daily. [place] atorvastati 2019-0 Yes 1{tbl} QD Take [address] [facility] (LIPITOR) 5-15 tablet by [facility] 10 MG 00:00: mouth Medical tablet 00 daily. [place] atorvastati 2019-0 Yes 1{tbl} QD Take [address] [facility] (LIPITOR) 5-15 tablet by [facility] 10 MG 00:00: mouth Medical tablet 00 daily. [place] atorvastati 2019-0 Yes 1{tbl} QD Take [address] [facility] (LIPITOR) 5-15 tablet by [facility] 10 MG 00:00: mouth Medical tablet 00 daily. [place] atorvastati 2019-0 Yes 1{tbl} QD Take [address] [facility] (LIPITOR) 5-15 tablet by [facility] 10 MG 00:00: mouth Medical tablet 00 daily. [place] atorvastati 2019-0 Yes 1{tbl} QD Take [address] [facility] (LIPITOR) 5-15 tablet by [facility] 10 MG 00:00: mouth Medical tablet 00 daily. [place] atorvastati 2019-0 Yes 1{tbl} QD Take [address] [facility] (LIPITOR) 5-15 tablet by [facility] 10 MG 00:00: mouth Medical tablet 00 daily. [place] atorvastati 2019-0 Yes 1{tbl} QD Take [address] [facility] (LIPITOR) 5-15 tablet by [facility] 10 MG 00:00: mouth Medical tablet 00 daily. [place] atorvastati 2019-0 Yes 1{tbl} QD Take [address] [facility] (LIPITOR) 5-15 tablet by [facility] 10 MG 00:00: mouth Medical tablet 00 daily. [place] atorvastati 2019-0 Yes 1{tbl} QD Take [address] [facility] (LIPITOR) 5-15 tablet by [facility] 10 MG 00:00: mouth Medical tablet 00 daily. [place] atorvastati 2019-0 Yes 1{tbl} QD Take [address] [facility] (LIPITOR) 5-15 tablet by [facility] 10 MG 00:00: mouth Medical tablet 00 daily. [place] atorvastati 2019-0 Yes 1{tbl} QD Take [address] [facility] (LIPITOR) 5-15 tablet by [facility] 10 MG 00:00: mouth Medical tablet 00 daily. [place] atorvastati 0 Yes 1{tbl} QD Take [address] [facility] (LIPITOR) 5-15 tablet by [facility] 10 MG 00:00: mouth Medical tablet 00 daily. [place] atorvastati 2019-0 Yes 1{tbl} QD Take [address] [facility] (LIPITOR) 5-15 tablet by [facility] 10 MG 00:00: mouth Medical tablet 00 daily. [place] atorvastati 0 Yes 1{tbl} QD Take [address] [facility] (LIPITOR) 5-15 tablet by [facility] 10 MG 00:00: mouth Medical tablet 00 daily. [place] atorvastati 2019-0 Yes 1{tbl} QD Take [address] [facility] (LIPITOR) 5-15 tablet by [facility] 10 MG 00:00: mouth Medical tablet 00 daily. [place] atorvastati 2019-0 Yes 1{tbl} QD Take [address] [facility] (LIPITOR) 5-15 tablet by [facility] 10 MG 00:00: mouth Medical tablet 00 daily. [place] atorvastati 2019-0 Yes 1{tbl} QD Take [address] [facility] (LIPITOR) 5-15 tablet by [facility] 10 MG 00:00: mouth Medical tablet 00 daily. [place] atorvastati 2019-0 Yes 1{tbl} QD Take [address] [facility] (LIPITOR) 5-15 tablet by [facility] 10 MG 00:00: mouth Medical tablet 00 daily. [place] atorvastati 2020-0 Yes 1{tbl} QD Take [address] [facility] (LIPITOR) 5-15 tablet by [facility] 10 MG 00:00: mouth Medical tablet 00 daily. [place] atorvastati 2020-0 Yes 1{tbl} QD Take [address] [facility] (LIPITOR) 5-15 tablet by [facility] 10 MG 00:00: mouth Medical tablet 00 daily. [place] aspirin 81 2020-0 No 1mg mg 3-04 [...] MG 00:00: daily . Medical tablet 00 [place] amLODIPine 2019-0 Yes 10mg QD Take [address] (NORVASC) 1-16 [facility] 10 MG 00:00: daily . Medical tablet 00 [place] amLODIPine 2020-0 Yes 10mg QD Take [address] (NORVASC) 1-16 [facility] 10 MG 00:00: daily . Medical tablet 00 [place] amLODIPine 2020-0 Yes 10mg QD Take [address] (NORVASC) 1-16 [facility] 10 MG 00:00: daily . Medical tablet 00 [place] amLODIPine 2020-0 Yes 10mg QD Take [address] (NORVASC) 1-16 [facility] 10 MG 00:00: daily . Medical tablet 00 [place] amLODIPine 2020-0 Yes 10mg QD Take [address] (NORVASC) 1-16 [facility] 10 MG 00:00: daily . Medical tablet 00 [place] amLODIPine 2020-0 Yes 10mg QD Take [address] (NORVASC) 1-16 [facility] 10 MG 00:00: daily . Medical tablet 00 [place] amLODIPine 2020-0 Yes 10mg QD Take [address] (NORVASC) 1-16 [facility] 10 MG 00:00: daily . Medical tablet 00 [place] amLODIPine 2020-0 Yes 10mg QD Take [address] (NORVASC) 1-16 [facility] 10 MG 00:00: daily . Medical tablet 00 [place] amLODIPine 2020-0 Yes 10mg QD Take [address] (NORVASC) 1-16 [facility] 10 MG 00:00: daily . Medical tablet 00 [place] amLODIPine 2020-0 Yes 10mg QD Take [address] (NORVASC) 1-16 [facility] 10 MG 00:00: daily . Medical tablet 00 [place] amLODIPine 2020-0 Yes 10mg QD Take [address] (NORVASC) 1-16 [facility] 10 MG 00:00: daily . Medical tablet 00 [place] amLODIPine 2020-0 Yes 10mg QD Take [address] (NORVASC) 1-16 [facility] 10 MG 00:00: daily . Medical tablet 00 [place] amLODIPine 2020-0 Yes 10mg QD Take [address] (NORVASC) 1-16 by [facility] 10 MG 00:00: daily . Medical tablet 00 [place] amLODIPine 2020-0 Yes 10mg QD Take [address] (NORVASC) 1-16 by [facility] 10 MG 00:00: daily . Medical tablet 00 [place] amLODIPine 2020-0 Yes 10mg QD Take [address] (NORVASC) 1-16 by [facility] 10 MG 00:00: daily . Medical tablet 00 [place] amLODIPine 2020-0 Yes 10mg QD Take [address] (NORVASC) 1-16 [facility] 10 MG 00:00: daily . Medical tablet 00 [place] amLODIPine 2020-0 Yes 10mg QD Take [address] (NORVASC) 1-16 [facility] 10 MG 00:00: daily . Medical tablet 00 [place] amLODIPine 2020-0 Yes 10mg QD Take [address] (NORVASC) 1-16 [facility] 10 MG 00:00: daily . Medical tablet 00 [place] amLODIPine 2020-0 Yes 10mg QD Take [address] (NORVASC) 1-16 [facility] 10 MG 00:00: daily . Medical tablet 00 [place] amLODIPine 2020-0 Yes 10mg QD Take [address] (NORVASC) 1-16 [facility] 10 MG 00:00: daily . Medical tablet 00 [place] amLODIPine 2020-0 Yes 10mg QD Take [address] (NORVASC) 1-16 [facility] 10 MG 00:00: daily . Medical tablet 00 [place] amLODIPine 2020-0 Yes 10mg QD Take [address] (NORVASC) 1-16 [facility] 10 MG 00:00: daily . Medical tablet 00 [place] amLODIPine 2020-0 Yes 10mg QD Take [address] (NORVASC) 1-16 [facility] 10 MG 00:00: daily . Medical tablet [address] [place] [address] amLODIPine 2020-0 Yes 10mg QD Take [address] (NORVASC) 1-16 [facility] 10 MG 00:00: daily . Medical tablet [address] [place] [address] amLODIPine 2020-0 Yes 10mg QD Take [address] (NORVASC) 1-16 [facility] 10 MG 00:00: daily . Medical tablet [address] [place] [address] amLODIPine 2020-0 Yes 10mg QD Take [address] (NORVASC) 1-16 by [facility] 10 MG 00:00: daily . Medical tablet [address] [place] [address] amLODIPine 2020-0 Yes 10mg QD Take [address] (NORVASC) 1-16 by [facility] 10 MG 00:00: daily . Medical tablet [address] [place] [address] aspirin 81 2020-0 No 1mg mg 1-10 [...] tablet 00:00: 00 sevelamer 2020-0 Yes 800mg Q.[id number] [address] [facility] (RENVELA) 1-10 [id number] (three) [facility] 800 mg 00:00: 3D times Medical tablet 00 daily . [place] UNITHROID 2020-0 Yes 125ug QD Take [address] [facility] 125 mcg 1-10 mcg by [facility] tablet 00:00: mouth Medical 00 nightly . [place] sevelamer 2020-0 Yes 800mg Q.[id number] [address] [facility] ([place]EL[place]) 1-10 [id number] (three) [facility] 800 mg 00:00: 3D times Medical tablet 00 daily . [place] UNITHROID 2020-0 Yes 125ug QD Take [address] [facility] 125 mcg 1-10 mcg by [facility] tablet 00:00: mouth Medical 00 nightly . [place] sevelamer 2020-0 Yes 800mg Q.[id number] [address] [facility] ([place]) 1-10 [id number] (three) [facility] 800 mg 00:00: 3D times Medical tablet 00 daily . [place] UNITHROID 2020-0 Yes 125ug QD Take [address] [facility] 125 mcg 1-10 mcg by [facility] tablet 00:00: mouth Medical 00 nightly . [place] sevelamer 2020-0 Yes 800mg Q.[id number] [address] [facility] ([place]) 1-10 [id number] (three) [facility] 800 mg 00:00: 3D times Medical tablet 00 daily . [place] UNITHROID 2020-0 Yes 125ug QD Take [address] [facility] 125 mcg 1-10 mcg by [facility] tablet 00:00: mouth Medical 00 nightly . [place] sevelamer 2020-0 Yes 800mg Q.[id number] [address] [facility] ([place]) 1-10 [id number] (three) [facility] 800 mg 00:00: 3D times Medical tablet 00 daily . [place] UNITHROID 2020-0 Yes 125ug QD Take [address] [facility] 125 mcg 1-10 mcg by [facility] tablet 00:00: mouth Medical 00 nightly . [place] sevelamer 2020-0 Yes 800mg Q.[id number] [address] [facility] ([place]) 1-10 [id number] (three) [facility] 800 mg 00:00: 3D times Medical tablet 00 daily . [place] UNITHROID 2020-0 Yes 125ug QD Take [address] [facility] 125 mcg 1-10 mcg by [facility] tablet 00:00: mouth Medical 00 nightly . [place] sevelamer 2020-0 Yes 800mg Q.[id number] [address] [facility] ([place]) 1-10 [id number] (three) [facility] 800 mg 00:00: 3D times Medical tablet 00 daily . [place] UNITHROID 2020-0 Yes 125ug QD Take [address] [facility] 125 mcg 1-10 mcg by [facility] tablet 00:00: mouth Medical 00 nightly . [place] sevelamer 2020-0 Yes 800mg Q.[id number] [address] [facility] ([place]) 1-10 [id number] (three) [facility] 800 mg 00:00: 3D times Medical tablet 00 daily . [place] UNITHROID 2020-0 Yes 125ug QD Take [address] [facility] 125 mcg 1-10 mcg by [facility] tablet 00:00: mouth Medical 00 nightly . [place] sevelamer 2020-0 Yes 800mg Q.[id number] [address] [facility] ([place]) 1-10 [id number] (three) [facility] 800 mg 00:00: 3D times Medical tablet 00 daily . [place] UNITHROID 2020-0 Yes 125ug QD Take [address] [facility] 125 mcg 1-10 mcg by [facility] tablet 00:00: mouth Medical 00 nightly . [place] sevelamer 2020-0 Yes 800mg Q.[id number] [address] [facility] ([place]) 1-10 [id number] (three) [facility] 800 mg 00:00: 3D times Medical tablet 00 daily . [place] UNITHROID 2020-0 Yes 125ug QD Take [address] [facility] 125 mcg 1-10 mcg by [facility] tablet 00:00: mouth Medical 00 nightly . [place] sevelamer 2020-0 Yes 800mg Q.[id number] [address] [facility] ([place]) 1-10 [id number] (three) [facility] 800 mg 00:00: 3D times Medical tablet 00 daily . [place] UNITHROID 2020-0 Yes 125ug QD Take [address] [facility] 125 mcg 1-10 mcg by [facility] tablet 00:00: mouth Medical 00 nightly . [place] sevelamer 2020-0 Yes 800mg Q.[id number] [address] [facility] ([place]) 1-10 [id number] (three) [facility] 800 mg 00:00: 3D times Medical tablet 00 daily . [place] UNITHROID 2020-0 Yes 125ug QD Take [address] [facility] 125 mcg 1-10 mcg by [facility] tablet 00:00: mouth Medical 00 nightly . [place] sevelamer 2020-0 Yes 800mg Q.[id number] [address] [facility] ([place]) 1-10 [id number] (three) [facility] 800 mg 00:00: 3D times Medical tablet 00 daily . [place] UNITHROID 2020-0 Yes 125ug QD Take [address] [facility] [address] 125 mcg 1-10 mcg by [facility] tablet 00:00: mouth Medical 00 nightly . [place] sevelamer 2020-0 Yes 800mg Q.[id number] [address] [facility] ([place]) 1-10 [id number] (three) [facility] 800 mg 00:00: 3D times Medical tablet 00 daily . [place] UNITHROID 2020-0 Yes 125ug QD Take [address] [facility] 125 mcg 1-10 mcg by [facility] tablet 00:00: mouth Medical 00 nightly . [place] sevelamer 2020-0 Yes 800mg Q.[id number] [address] [facility] ([place]) 1-10 [id number] (three) [facility] 800 mg 00:00: 3D times Medical tablet 00 daily . [place] UNITHROID 2020-0 Yes 125ug QD Take [address] [facility] 125 mcg 1-10 mcg by [facility] tablet 00:00: mouth Medical 00 nightly . [place] sevelamer 2020-0 Yes 800mg Q.[id number] [address] [facility] ([place]) 1-10 [id number] (three) [facility] 800 mg 00:00: 3D times Medical tablet 00 daily . [place] UNITHROID 2020-0 Yes 125ug QD Take [address] [facility] 125 mcg 1-10 mcg by [facility] tablet 00:00: mouth Medical 00 nightly . [place] sevelamer 2020-0 Yes 800mg Q.[id number] [address] [facility] ([place]) 1-10 [id number] (three) [facility] 800 mg 00:00: 3D times Medical tablet 00 daily . [place] UNITHROID 2020-0 Yes 125ug QD Take [address] [facility] 125 mcg 1-10 mcg by [facility] tablet 00:00: mouth Medical 00 nightly . [place] sevelamer 2020-0 Yes 800mg Q.[id number] [address] [facility] ([place]) 1-10 [id number] (three) [facility] 800 mg 00:00: 3D times Medical tablet 00 daily . [place] UNITHROID 2020-0 Yes 125ug QD Take [address] [facility] 125 mcg 1-10 mcg [facility] tablet 00:00: mouth Medical 00 nightly . [place] sevelamer 2020-0 Yes 800mg Q.[id number] [address] [facility] ([place]) 1-10 [id number] (three) [facility] 800 mg 00:00: 3D times Medical tablet 00 daily . [place] UNITHROID 2020-0 Yes 125ug QD Take [address] [facility] 125 mcg 1-10 mcg by [facility] tablet 00:00: mouth Medical 00 nightly . [place] sevelamer 2020-0 Yes 800mg Q.[id number] [address] [facility] ([place]) 1-10 [id number] (three) [facility] 800 mg 00:00: 3D times Medical tablet 00 daily . [place] UNITHROID 2020-0 Yes 125ug QD Take [address] [facility] 125 mcg 1-10 mcg [facility] tablet 00:00: mouth Medical 00 nightly . [place] sevelamer 2020-0 Yes 800mg Q.[id number] [address] [facility] ([place]) 1-10 [id number] (three) [facility] 800 mg 00:00: 3D times Medical tablet 00 daily . [place] UNITHROID 2020-0 Yes 125ug QD Take [address] [facility] 125 mcg 1-10 mcg by [facility] tablet 00:00: mouth Medical 00 nightly . [place] sevelamer 2020-0 Yes 800mg Q.[id number] [address] [facility] ([place]) 1-10 [id number] (three) [facility] 800 mg 00:00: 3D times Medical tablet 00 daily . [place] UNITHROID 2020-0 Yes 125ug QD Take [address] [facility] 125 mcg 1-10 mcg by [facility] tablet 00:00: mouth Medical 00 nightly . [place] sevelamer 2020-0 Yes 800mg Q.[id number] [address] [facility] ([place]) 1-10 [id number] (three) [facility] 800 mg 00:00: 3D times Medical tablet 00 daily . [place] UNITHROID 2020-0 Yes 125ug QD Take [address] [facility] [address] 125 mcg 1-10 mcg [facility] tablet 00:00: mouth Medical 00 nightly . [place] sevelamer 2020-0 Yes 800mg Q.[id number] [address] [facility] ([place]) 1-10 [id number] (three) [facility] 800 mg 00:00: 3D times Medical tablet 00 daily . [place] UNITHROID 2020-0 Yes 125ug QD Take [address] [facility] 125 mcg 1-10 mcg [facility] tablet 00:00: mouth Medical 00 nightly . [place] sevelamer 2020-0 Yes 800mg Q.[id number] [address] [facility] ([place]) 1-10 [id number] (three) [facility] 800 mg 00:00: 3D times Medical tablet 00 daily . [place] UNITHROID 2020-0 Yes 125ug QD Take [address] [facility] [address] 125 mcg 1-10 mcg [facility] tablet 00:00: mouth Medical 00 nightly . [place] sevelamer 2020-0 Yes 800mg Q.[id number] [address] [facility] ([place]) 1-10 [id number] (three) [facility] 800 mg 00:00: 3D times Medical tablet 00 daily . [place] UNITHROID 2020-0 Yes 125ug QD Take [address] [facility] 125 mcg 1-10 mcg [facility] tablet 00:00: mouth Medical 00 nightly . [place] sevelamer 2020-0 Yes 800mg Q.[id number] [address] [facility] ([place]) 1-10 [id number] (three) [facility] 800 mg 00:00: 3D times Medical tablet 00 daily . [place] sevelamer 2020-0 Yes 800mg Q.[id number] [address] [facility] ([place]) 1-10 [id number] (three) [facility] 800 mg 00:00: 3D times Medical tablet 00 daily . [place] UNITHROID 2020-0 Yes 125ug QD Take [address] [facility] 125 mcg 1-10 mcg [facility] tablet 00:00: mouth Medical 00 nightly . [place] UNITHROID 2020-0 Yes 125ug QD Take [address] [facility] 125 mcg 1-10 [facility]cg [facility] tablet 00:00: mouth Medical 00 nightly . [place] amlodipine 2020-0 No 1mg 10 mg 1-08 [...] 125 mcg 2-04 tablet 00:00: 00 levothyroxi 2018-05 No 2mcg ne 125 mcg 2-04 tablet 00:00: 00 levothyroxi 2018-05 No 2mcg ne 125 mcg 2-04 tablet [...] 1-12 capsule 00:00: 00 gabapentin 2018-05 Yes [id number] 100mg Take 1 [facility] 100 mg 0-22 capsule by [facility] capsule 00:00: mouth 3 [place] 00 (three) Medical times Branch daily. gabapentin 2018-05 Yes [id number] 100mg Take 1 [facility] 100 mg 0-22 capsule by [facility] of capsule 00:00: mouth 3 [place] 00 (three) Medical times Branch daily. gabapentin 2018-05 Yes [id number] 100mg Take 1 [facility] 100 mg 0-22 capsule by [facility] of capsule 00:00: mouth 3 [place] 00 (three) Medical times Branch daily. gabapentin 2018-05 Yes [id number] 100mg Take 1 [facility] 100 mg 0-22 capsule by [facility] of capsule 00:00: mouth 3 [place] 00 (three) Medical times Branch daily. gabapentin 2018-05 Yes [id number] 100mg Take 1 [facility] 100 mg 0-22 capsule by [facility] of capsule 00:00: mouth 3 [place] 00 (three) Medical times Branch daily. aspirin [...] mg 0-01 tablet,girma 00:00: yed release amlodipine 2018- No 1mg 5 mg tablet 001 00:00: 00 aspirin 81 2018-05 No 1mg mg 0-01 tablet,girma 00:00: yed release amlodipine 2018- No 1mg 10 mg 0-01 [...] 200 mcg 0-01 tablet 00:00: 00 amLODIPine 2018-0 Yes [id number] 10mg Take 1 [facility] 10 mg 9-16 tablet by [facility] of tablet 00:00: mouth [place] 00 daily. Medical Branch aspirin 81 2018-0 Yes [id number] 81mg Take 1 [facility] mg chewable 9-16 tablet by [facility] of tablet 00:00: mouth [place] 00 daily. Medical Branch atorvastati 2019-0 Yes [id number] 40mg Take 2 [facility] n 20 mg 9-16 tablets by [facility] of tablet 00:00: mouth at [place] 00 bedtime. Medical Branch calcium 2018-0 Yes [id number] 1000mg Take 2 [facility] carbonate 9-16 tablets by [facility] of (CALCIUM 00:00: mouth 3 [place] 500) 500 mg 00 (three) Medic al calcium times Branch (1,250 mg) daily with tablet meals. meclizine 2018-0 Yes [id number] 25mg Take 2 [facility] 12.5 mg 9-16 tablets by [facility] of tablet 00:00: mouth 3 [place] 00 (three) Medical times Branch daily as needed for Dizziness. Para mareo (for dizziness) sevelamer 2018-0 Yes [id number] 800mg Take 1 [facility] 800 mg 9-16 tablet by [facility] of tablet 00:00: mouth 3 [place] 00 (three) Medical times Branch daily with meals. amLODIPine 2018-0 Yes [id number] 10mg Take 1 [facility] 10 mg 9-16 tablet by [facility] of tablet 00:00: mouth [place] 00 daily. Medical Branch aspirin 81 2018-0 Yes [id number] 81mg Take 1 [facility] mg chewable 9-16 tablet by [facility] of tablet 00:00: mouth [place] 00 daily. Medical Branch atorvastati 2018-0 Yes [id number] 40mg Take 2 [facility] n 20 mg 9-16 tablets by [facility] of tablet 00:00: mouth at [place] 00 bedtime. Medical Branch calcium 2018-0 Yes [id number] 1000mg Take 2 [facility] carbonate 9-16 tablets by [facility] of (CALCIUM 00:00: mouth 3 [place] 500) 500 mg 00 (three) Medic al calcium times Branch (1,250 mg) daily with tablet meals. meclizine 2019-0 Yes [id number] 25mg Take 2 [facility] 12.5 mg 9-16 tablets by [facility] of tablet 00:00: mouth 3 [place] 00 (three) Medical times Branch daily as needed for Dizziness. Para mareo (for dizziness) sevelamer 2018-0 Yes [id number] 800mg Take 1 [facility] 800 mg 9-16 tablet by [facility] of tablet 00:00: mouth 3 [place] 00 (three) Medical times Branch daily with meals. amLODIPine 2019-0 Yes [id number] 10mg Take 1 [facility] 10 mg 9-16 tablet by [facility] of tablet 00:00: mouth [place] 00 daily. Medical Branch aspirin 81 2018-0 Yes [id number] 81mg Take 1 [facility] mg chewable 9-16 tablet by [facility] of tablet 00:00: mouth [place] 00 daily. Medical Branch atorvastati 2018-0 Yes [id number] 40mg Take 2 [facility] n 20 mg 9-16 tablets by [facility] of tablet 00:00: mouth at [place] 00 bedtime. Medical Branch calcium 2018-0 Yes [id number] 1000mg Take 2 [facility] carbonate 9-16 tablets by [facility] of (CALCIUM 00:00: mouth 3 [place] 500) 500 mg 00 (three) Medic al calcium times Branch (1,250 mg) daily with tablet meals. meclizine 2018-0 Yes [id number] 25mg Take 2 [facility] 12.5 mg 9-16 tablets by [facility] of tablet 00:00: mouth 3 [place] 00 (three) Medical times Branch daily as needed for Dizziness. Para mareo (for dizziness) sevelamer 2018-0 Yes [id number] 800mg Take 1 [facility] 800 mg 9-16 tablet by [facility] of tablet 00:00: mouth 3 [place] 00 (three) Medical times Branch daily with meals. amLODIPine 2018-0 Yes [id number] 10mg Take 1 [facility] 10 mg 9-16 tablet by [facility] of tablet 00:00: mouth [place] 00 daily. Medical Branch aspirin 81 2018-0 Yes [id number] 81mg Take 1 [facility] mg chewable 9-16 tablet by [facility] of tablet 00:00: mouth [place] 00 daily. Medical Branch atorvastati 2018-0 Yes [id number] 40mg Take 2 [facility] n 20 mg 9-16 tablets by [facility] of tablet 00:00: mouth at [place] 00 bedtime. Medical Branch calcium 2018-0 Yes [id number] 1000mg Take 2 [facility] carbonate 9-16 tablets by [facility] of (CALCIUM 00:00: mouth 3 [place] 500) 500 mg 00 (three) Medic al calcium times Branch (1,250 mg) daily with tablet meals. meclizine 2018-0 Yes [id number] 25mg Take 2 [facility] 12.5 mg 9-16 tablets by [facility] of tablet 00:00: mouth 3 [place] 00 (three) Medical times Branch daily as needed for Dizziness. Para mareo (for dizziness) sevelamer 2018-0 Yes [id number] 800mg Take 1 [facility] 800 mg 9-16 tablet by [facility] of tablet 00:00: mouth 3 [place] 00 (three) Medical times Branch daily with meals. amLODIPine 2018- Yes [id number] 10mg Take 1 [facility] 10 mg 9-16 tablet by [facility] of tablet 00:00: mouth [place] 00 daily. Medical Branch aspirin 81 2018-0 Yes [id number] 81mg Take 1 [facility] mg chewable 9-16 tablet by [facility] of tablet 00:00: mouth [place] 00 daily. Medical Branch atorvastati Yes [id number] 40mg Take 2 [facility] n 20 mg 9-16 tablets by [facility] of tablet 00:00: mouth at [place] 00 bedtime. Medical Branch calcium 2018- Yes [id number] 1000mg Take 2 [facility] carbonate 9-16 tablets by [facility] of (CALCIUM 00:00: mouth 3 [place] 500) 500 mg 00 (three) Medic al calcium times Branch (1,250 mg) daily with tablet meals. meclizine 2018- Yes [id number] 25mg Take 2 [facility] 12.5 mg 9-16 tablets by [facility] of tablet 00:00: mouth 3 [place] 00 (three) Medical times Branch daily as needed for Dizziness. Para mareo (for dizziness) sevelamer 2018- Yes [id number] 800mg Take 1 [facility] 800 mg 9-16 tablet by [facility] of tablet 00:00: mouth 3 [place] 00 (three) Medical times Branch daily with meals. amLODIPine Yes 10mg QD Take 10 mg M ethodi (NORVASC) 9-[address] 10 mg 15:20: daily. [facility] tablet 50 l amLODIPine Yes 10mg [...] 2018-03-07 Completed [facility] o f Polysaccharide, 00:00:00 [place] [facility] PPSV23 (PNEUMOVAX) Branch Vital Signs Vital Name Observation Time Observation Value Comments Source HEIGHT 2019-11-07 00:00:00 162.6 cm WEIGHT 2019-11-07 00:00:00 76.4 kg Systolic blood 2021-12-02 19:06:00 116 mm[Hg] Univer sity of pressure [facility] Diastolic blood 2021-12-02 19:06:00 68 mm[Hg] Unive rsity of pressure [facility] Heart rate 2021-12-02 19:06:00 69 /min [facility] Body height 2021-12-02 19:06:00 162.6 cm [facility] Body weight 2021-12-02 19:06:00 78.019 kg [facility] BMI 2021-12-02 19:06:00 29.52 kg/m2 [facility] Oxygen saturation in 2021-12-02 19:06:00 95 /min [facility] Arterial blood by [facility] Pulse oximetry Branch HEIGHT 2019-11-07 [...] Date / Time Performing Clinician Source Performed EXTERNAL PROVIDER 2022-10-15 05:01:00 Doctor Unassigned, No [facility] RECORDS Name Medical Branch REFERRAL- 2022-05-28 06:01:00 Doctor Unassigned, No [facility] REQUEST/RESPONSE Name Medical Branch [id number] 2022-04-17 00:00:00 [facility] john paul [id number] 2022-04-08 00:00:00 [facility] Plan of Care Planned Activity Planned Date Details Comments Source Future Scheduled 2023-01-[address] [facility] Test 00:00:00 (Season Ended) [code = [facility] Center Influenza Vaccine (Season Ended)] Future Scheduled 2023-01-01 INFLUENZA VACCINE [...] INFLUENZA VACCINE (Season Ended)] Future Scheduled 2023-01-[address] [facility] Test 00:00:00 (Season Ended) [code = [facility] Center Influenza Vaccine (Season Ended)] Future Scheduled 2022-10-09 [facility] 20:34:22 malignant neoplasm of colon (procedure) [code = 883216129] Future Scheduled 2022-10-09 [facility] Test 20:34:22 malignant neoplasm of colon (procedure) [code = 516265551] Future Scheduled 2022-10-09 [facility] 20:34:22 malignant neoplasm of colon (procedure) [code = 995598865] Future Scheduled 2022-10-09 COVID-19 [facility]ACCINE (#[facility]) [facility] 20:34:22 [code = COVID-19 VACCINE (#1)] Future Scheduled 2022-10-09 [facility] Test 20:34:22 malignant neoplasm of colon (procedure) [code = 578218909] Future Scheduled 2022-10-09 [facility] 20:34:22 malignant neoplasm of colon (procedure) [code = 930534992] Future Scheduled 2022-10-09 [facility]ACCINES ([facility] 20[facility]34:22 of 2) [code = SHINGLES VACCINES (1 of 2)] Future Scheduled 2022-10-09 [facility]:34:22 [code = INFLUENZA VACCINE] Future Scheduled 2022-10-09 [facility] 20:34:22 malignant neoplasm of colon (procedure) [code = 117184704] Future Scheduled 2022-10-09 [facility] 20:34:22 malignant neoplasm of colon (procedure) [code = 614184404] Future Scheduled 2022-10-09 [facility] 20:34:22 malignant neoplasm of colon (procedure) [code = 311636712] Future Scheduled 2022-10-09 COVID-19 VACCINE (#[facility]) [facility] 20:34:22 [code = COVID-19 VACCINE (#1)] Future Scheduled 2022-10-09 [facility] 20:34:22 malignant neoplasm of colon (procedure) [code = 198609468] Future Scheduled 2022-10-09 [facility] 20:34:22 malignant neoplasm of colon (procedure) [code = 486281597] Future Scheduled 2022-10-09 SHINGLES VACCINES (1 [facility] 20:34:22 of 2) [code = SHINGLES VACCINES (1 of 2)] Future Scheduled 2022-10-09 [facility] 20:34:22 [code = INFLUENZA VACCINE] Future Scheduled 2022-08-02 [...] Test 00:00:00 (procedure) [code = Medical Center [id number]] Future Scheduled 2022-07-[address] [facility] 00:00:00 (procedure) [code = [facility] Center 50403732] Future Scheduled 2022-07-[address] [facility] 00:00:00 (procedure) [code = Medical Center 69872950] Future Scheduled 2022-07-[address] [facility] 00:00:00 (procedure) [code = Medical Center 84178788] Future Scheduled 2022-07-[address] [facility] 00:00:00 (procedure) [code = Medical Center 04617269] Future Scheduled 2022-07-[address] [facility] 00:00:00 (procedure) [code = Medical Center 32816630] Future Scheduled 2022-07-[address] [facility] 00:00:00 (procedure) [code = Medical Center 19455263] Future Scheduled 2022-07-[address] [facility] 00:00:00 (procedure) [code = [facility] Center 71262161] Future Scheduled 2022-07-[address] [facility] 00:00:00 (procedure) [code = [facility] Center 01286685] Future Scheduled 2022-07-[address] [facility] 00:00:00 (procedure) [code = Medical Center 77654300] Future Scheduled 2022-07-[address] [facility] 00:00:00 (procedure) [code = [facility] Center 07173167] Future Scheduled 2022-07-[address] [facility] 00:00:00 (procedure) [code = [facility] Center 25011405] Future Scheduled 2022-07-[address] [facility] 00:00:00 (procedure) [code = Medical Center 74805110] Future Scheduled 2022-07-[address] [facility] 00:00:00 (procedure) [code = [facility] Center 39460664] Future Scheduled 2022-07-[address] [facility] 00:00:00 (procedure) [code = Medical Center 70931887] Future Scheduled 2022-07-[address] [facility] 00:00:00 (procedure) [code = [facility] 79227628] Future Scheduled 2022-07-[address] [facility] 00:00:00 (procedure) [code = Medical Center 43582592] Future Scheduled 2022-07-[address] [facility] 00:00:00 (procedure) [code = [facility] 51196535] Future Scheduled 2022-07-[address] [facility] 00:00:00 (procedure) [code = Medical Center 26638851] Future Scheduled 2022-07-[address] [facility] 00:00:00 (procedure) [code = [facility] 84938540] Future Scheduled 2022-07-[address] [facility] 00:00:00 (procedure) [code = [facility] 50968523] Future Scheduled 2022-07-[address] [facility] 00:00:00 (procedure) [code = Medical Center 39468781] Future Scheduled 2022-07-[address] [facility] 00:00:00 (procedure) [code = Medical Center 82005486] Future Scheduled 2022-07-[address] [facility] 00:00:00 (procedure) [code = Medical Center 87397933] Future Scheduled 2022-07-[address] [facility] 00:00:00 (procedure) [code = [facility] 36939023] Future Scheduled 2022-07-[address] [facility] 00:00:00 (procedure) [code = [facility] 84141169] Future Scheduled 2022-07-[address] [facility] 00:00:00 (procedure) [code = Medical Center 51767662] Future Scheduled 2022-07-[address] [facility] 00:00:00 (procedure) [code = Medical Center 68668788] Future Scheduled 2022-06-15 COVID-19 VACCINE (#1) [facility] Test 10:12:43 [code = COVID-19 VACCINE (#1)] Future Scheduled 2022-06-15 COLONOSCOPY SCREENING [facility] Test 10:12:43 [code = COLONOSCOPY SCREENING] Future Scheduled 2022-06-15 SHINGLES VACCINES ([facility] 10:12:43 of 2) [code = SHINGLES VACCINES (1 of 2)] Future Scheduled 2022-06-15 [facility]INE [facility] 10:12:43 [code = INFLUENZA VACCINE] Future Scheduled 2022-06-15 COVID[facility] 10:12:43 [code = COVID-19 VACCINE (#1)] Future Scheduled 2022-06-15 [facility] 10:12:43 [code = COLONOSCOPY SCREENING] Future Scheduled 2022-06-15 SHINGLES [facility]ACCINES ([address] [facility] 10:12:43 of 2) [code = SHINGLES VACCINES (1 of 2)] Future Scheduled 2022-06-15 [facility]INE [facility] 10:12:43 [code = INFLUENZA VACCINE] Future Scheduled 2022-06-15 COVID-19 VACCINE (#1) [facility] 10:12:43 [code = COVID-19 VACCINE (#1)] Future Scheduled 2022-06-15 [facility] 10:12:43 [code = COLONOSCOPY SCREENING] Future Scheduled 2022-06-15 SHINGLES VACCINES ([address] [facility] 10:12:43 of 2) [code = SHINGLES VACCINES (1 of 2)] Future Scheduled 2022-06-15 [facility]ZA [facility]ACCINE [facility] 10:12:43 [code = INFLUENZA VACCINE] Future Scheduled 2022-05-28 COVID-19 VACCINE (#1) [facility] 09:36:27 [code = COVID-19 VACCINE (#1)] Future Scheduled 2022-05-28 [facility]CRE[facility]ING [facility] 09:36:27 [code = COLONOSCOPY SCREENING] Future Scheduled 2022-05-28 SHINGLES VACCINES (1 [facility] 09:36:27 of 2) [code = SHINGLES VACCINES (1 of 2)] Future Scheduled 2022-05-28 [facility]ZA [facility]ACCINE [facility] 09:36:27 [code = INFLUENZA VACCINE] Future Scheduled 2022-05-28 COVID-19 VACCINE (#1) [facility] 09:36:27 [code = COVID-19 VACCINE (#1)] Future Scheduled 2022-05-28 [facility] 09:36:27 [code = COLONOSCOPY SCREENING] Future Scheduled 2022-05-28 SHINGLES VACCINES (1 Met [facility] Test 09:36:27 of 2) [code = SHINGLES VACCINES (1 of 2)] Future Scheduled 2022-05-28 [facility]ZA VACCINE [facility] 09:36:27 [code = INFLUENZA VACCINE] Future Scheduled 2022-05-11 COVID-[facility]ACC[facility] 00:38:04 [code = COVID-19 VACCINE (#1)] Future Scheduled 2022-05-11 [facility] 00:38:04 [code = COLONOSCOPY SCREENING] Future Scheduled 2022-05-11 SHINGLES VACCINES (1 Met [facility] Test 00:38:04 of 2) [code = SHINGLES VACCINES (1 of 2)] Future Scheduled 2022-05-11 [facility]ZA [facility]ACCINE [facility] 00:38:04 [code = INFLUENZA VACCINE] Future Scheduled 2022-05-11 COVID-19 VACCINE (#[facility] 00:38:04 [code = COVID-19 VACCINE (#1)] Future Scheduled 2022-05-11 [facility] 00:38:04 [code = COLONOSCOPY SCREENING] Future Scheduled 2022-05-11 SHINGLES VACCINES (1 [facility] Test 00:38:04 of 2) [...] (12+)] Future Scheduled 2022-04-23 COVID-19 VACCINE (#[facility]) [facility] 11:12:56 [code = COVID-19 VACCINE (#1)] Future Scheduled 2022-04-23 [facility] 11:12:56 [code = COLONOSCOPY SCREENING] Future Scheduled 2022-04-23 SHINGLES VACCINES (1 [facility] 11:12:56 of 2) [code = SHINGLES VACCINES (1 of 2)] Future Scheduled 2022-04-23 [facility]ZA [facility]ACCINE [facility] 11:12:56 [code = INFLUENZA VACCINE] Future Scheduled 2022-04-20 COVID-19 VACCINE (#1) [facility] 13:44:31 [code = COVID-19 VACCINE (#1)] Future Scheduled 2022-04-20 [facility] 13:44:31 [code = COLONOSCOPY SCREENING] Future Scheduled 2022-04-20 SHINGLES VACCINES ([address] [facility] 13:44:31 of 2) [code = SHINGLES VACCINES (1 of 2)] Future Scheduled 2022-04-20 [facility]ENZA VACCINE [facility] 13:44:31 [code = INFLUENZA VACCINE] Future Scheduled 2022-04-20 COVID-19 VACCINE (#1) [facility] 13:44:31 [code = COVID-19 VACCINE (#1)] Future Scheduled 2022-04-20 [facility] 13:44:31 [code = COLONOSCOPY SCREENING] Future Scheduled 2022-04-20 SHINGLES VACCINES ([address] [facility] Test 13:44:31 of 2) [code = SHINGLES VACCINES (1 of 2)] Future Scheduled 2022-04-20 [facility]ZA VACCINE [facility] 13:44:31 [code = INFLUENZA VACCINE] Future Scheduled 2022-04-20 COVID-19 VACCINE (#1) [facility] 13:44:31 [code = COVID-19 VACCINE (#1)] Future Scheduled 2022-04-20 [facility] Test 13:44:31 [code = COLONOSCOPY SCREENING] Future Scheduled 2022-04-20 SHINGLES VACCINES ([facility] 13:44:31 of 2) [code = SHINGLES VACCINES (1 of 2)] Future Scheduled 2022-04-20 INFLUENZA VACCINE [facility] Test 13:44:31 [code = INFLUENZA VACCINE] Future Scheduled 2022-04-20 COVID-19 [facility]ACCINE (#[facility] 13:44:31 [code = COVID-19 VACCINE (#1)] Future Scheduled 2022-04-20 [facility] 13:44:31 [code = COLONOSCOPY SCREENING] Future Scheduled 2022-04-20 SHINGLES VACCINES (1 Met [facility] Test 13:44:31 of 2) [code = SHINGLES VACCINES (1 of 2)] Future Scheduled 2022-04-20 INFLUENZA VACCINE [facility] Test 13:44:31 [code = INFLUENZA VACCINE] Future Scheduled 2022-03-04 HEPATITIS B VACCINES Met [facility] Test 13:56:11 (1 of 3 - 3-dose series) [code = HEPATITIS B VACCINES (1 of 3 - 3-dose series)] Future Scheduled 2022-03-04 COVID-19 VACCINE (#1) [facility] Test 13:56:11 [code = COVID-19 VACCINE (#1)] Future Scheduled 2022-03-04 COLONOSCOPY SCREENING [facility] Test 13:56:11 [code = COLONOSCOPY SCREENING] Future Scheduled 2022-03-04 SHINGLES VACCINES (1 Met [facility] Test 13:56:11 of 2) [code = SHINGLES VACCINES (1 of 2)] Future Scheduled 2022-03-04 INFLUENZA VACCINE Method [facility] Test 13:56:11 [code = INFLUENZA VACCINE] Future Scheduled 2022-03-04 HEPATITIS B VACCINES [facility] Test 13:56:11 (1 of 3 - 3-dose series) [code = HEPATITIS B VACCINES (1 of 3 - 3-dose series)] Future Scheduled 2022-03-04 COVID-19 [facility]ACCINE (#[facility] 13:56:11 [code = COVID-19 VACCINE (#1)] Future Scheduled 2022-03-04 COLONOSCOPY SCREENING [facility] Test 13:56:11 [code = COLONOSCOPY SCREENING] Future Scheduled 2022-03-04 SHINGLES VACCINES (1 Met [facility] Test 13:56:11 of 2) [code = SHINGLES VACCINES (1 of 2)] Future Scheduled 2022-03-04 INFLUENZA VACCINE Method [facility] Test 13:56:11 [code = INFLUENZA VACCINE] Future Scheduled 2022-03-04 HEPATITIS B VACCINES [facility] Test 13:56:11 (1 of 3 - 3-dose series) [code = HEPATITIS B VACCINES (1 of 3 - 3-dose series)] Future Scheduled 2022-03-04 COVID-19 VACCINE (#[facility] 13:56:11 [code = COVID-19 VACCINE (#1)] Future Scheduled 2022-03-04 [facility]CRE[facility] 13:56:11 [code = COLONOSCOPY SCREENING] Future Scheduled 2022-03-04 SHINGLES VACCINES (1 [facility] Test 13:56:11 of 2) [code = SHINGLES VACCINES (1 of 2)] Future Scheduled 2022-03-04 INFLUENZA VACCINE Method [facility] Test 13:56:11 [code = INFLUENZA VACCINE] Future Scheduled 2022-02-08 HEPATITIS B VACCINES [facility] Test 14:31:50 (1 of 3 - 3-dose series) [code = HEPATITIS B VACCINES (1 of 3 - 3-dose series)] Future Scheduled 2022-02-08 COVID-19 VACCINE (#[facility] 14:31:50 [code = COVID-19 VACCINE (#1)] Future Scheduled 2022-02-08 COLONOSCOPY SCREENING [facility] Test 14:31:50 [code = COLONOSCOPY SCREENING] Future Scheduled 2022-02-08 SHINGLES VACCINES (1 Met [facility] Test 14:31:50 of 2) [code = SHINGLES VACCINES (1 of 2)] Future Scheduled 2022-02-08 INFLUENZA VACCINE Method [facility] Test 14:31:50 [code = INFLUENZA VACCINE] Future Scheduled 2022-01-03 HEPATITIS B VACCINES [facility] Test 04:21:26 (1 of 3 - 3-dose series) [code = HEPATITIS B VACCINES (1 of 3 - 3-dose series)] Future Scheduled 2022-01-03 COVID-19 VACCINE (#[facility] 04:21:26 [code = COVID-19 VACCINE (#1)] Future Scheduled 2022-01-03 Pneumococcal Vaccine: [facility] Test 04:21:26 Pediatrics (0 to 5 Years) and At-Risk Patients (6 to 64 Years) (1 - PCV) [code = Pneumococcal Vaccine: Pediatrics (0 to 5 Years) and At-Risk Patients (6 to 64 Years) (1 - PCV)] Future Scheduled 2022-01-03 Hepatitis C screening [facility] Test 04:21:26 (procedure) [code = 112072065] Future Scheduled 2022-01-03 SHINGLES VACCINES (1 [facility] Test 04:21:26 of 2) [code = SHINGLES VACCINES (1 of 2)] Future Scheduled 2022-01-03 COLONOSCOPY SCREENING [facility] Test 04:21:26 [code = COLONOSCOPY SCREENING] Future Scheduled 2022-01-03 INFLUENZA VACCINE Method [facility] Test 04:21:26 [code = [...] (#1)] Future Scheduled 2021-12-27 HEPATITIS B VACCINES [facility] Test 10:00:17 (1 of 3 - 3-dose series) [code = HEPATITIS B VACCINES (1 of 3 - 3-dose series)] Future Scheduled 2021-12-27 COVID-19 VACCINE (#1) [facility] Test 10:00:17 [code = COVID-19 VACCINE (#1)] Future Scheduled 2021-12-27 Pneumococcal Vaccine: [facility] Test 10:00:17 Pediatrics (0 to 5 Years) and At-Risk Patients (6 to 64 Years) (1 - PCV) [code = Pneumococcal Vaccine: Pediatrics (0 to 5 Years) and At-Risk Patients (6 to 64 Years) (1 - PCV)] Future Scheduled 2021-12-27 Hepatitis C screening [facility] Test 10:00:17 (procedure) [code = 813920795] Future Scheduled 2021-12-27 SHINGLES VACCINES (1 Met [facility] Test 10:00:17 of 2) [code = SHINGLES VACCINES (1 of 2)] Future Scheduled 2021-12-27 COLONOSCOPY SCREENING [facility] Test 10:00:17 [code = COLONOSCOPY SCREENING] Future Scheduled 2021-12-27 INFLUENZA VACCINE [facility] Test 10:00:17 [code = [...] 00:00:00 measurement Medical Center (procedure) [code = 12775423] Future Scheduled 2020-01-[address] [facility] (procedure) [code = 28223070] Future Scheduled 2020-01-[address] [facility] 00:[facility]:00 [facility] (procedure) [code = 58281838] Future Scheduled 2020-01-[address] [facility] 00:[facility]00 measurement [facility] (procedure) [code = 48965403] Future Scheduled 2020-01-[address] [facility] 00:00:00 measurement [facility] (procedure) [code = 58197155] Future Scheduled 2020-01-[address] [facility] 00:00:00 measurement [facility] (procedure) [code = 52369196] Future Scheduled 2020-01-[address] [facility] 00:00:00 measurement [facility] (procedure) [code = 51652200] Future Scheduled 2020-01-[address] [facility] 00:00:00 measurement [facility] (procedure) [code = 15770277] Future Scheduled 2020-01-[address] [facility] 00:00:00 measurement [facility] (procedure) [code = 53217082] Future Scheduled 2020-01-[address] [facility] 00:00:00 measurement [facility] (procedure) [code = 31398196] Future Scheduled 2020-01-[address] [facility] 00:00:00 measurement [facility] (procedure) [code = 43060035] Future Scheduled 2020-01-[address] [facility] 00:00:00 measurement [facility] (procedure) [code = 26728050] Future Scheduled 2020-01-[address] [facility] 00:00:00 measurement [facility] (procedure) [code = 28308036] Future Scheduled 2020-01-[address] [facility] 00:00:00 measurement [facility] (procedure) [code = 65287699] Future Scheduled 2020-01-[address] [facility] 00:00:00 measurement [facility] (procedure) [code = 26452756] Future Scheduled 2020-01-[address] [facility] 00:00:00 measurement [facility] (procedure) [code = 71257832] Future Scheduled 2020-01-[address] [facility] 00:00:00 measurement [facility] (procedure) [code = 57422459] Future Scheduled 2020-01-[address] [facility] 00:00:00 measurement [facility] (procedure) [code = 18453510] Future Scheduled 2020-01-[address] [facility] 00:00:00 measurement [facility] (procedure) [code = 58144236] Future Scheduled 2020-01-[address] [facility] 00:00:00 measurement [facility] (procedure) [code = 72414929] Future Scheduled 2020-01-[address] [facility] 00:00:00 measurement [facility] (procedure) [code = 54420998] Future Scheduled 2020-01-[address] [facility] 00:00:00 measurement [facility] (procedure) [code = 32933655] Future Scheduled 2020-01-[address] [facility] 00:00:00 measurement [facility] (procedure) [code = 26741440] Future Scheduled 2020-01-[address] [facility] 00:00:00 measurement [facility] (procedure) [code = 65305720] Future Scheduled 2020-01-[address] [facility] 00:00:00 measurement [facility] (procedure) [code = 29367485] Future Scheduled 2020-01-[address] [facility] 00:00:00 measurement [facility] (procedure) [code = 67121306] Future Scheduled 2020-01-[address] [facility] 00:00:00 measurement [facility] (procedure) [code = 66876652] Future Scheduled 2020-01-[address] [facility] 00:00:[facility] measurement [facility] (procedure) [code = 05017614] Future Scheduled 2019-11-[address] [...] 00:00:00 examination Medical Center (regime/therapy) [code = 675300818] Future Scheduled 1975 Urine screening [facility] 00:00:00 protein (procedure) Medical Center [code = 088761415] Future Scheduled 1975 DIABETIC EYE EXAM [facility] 00:00:00 [code = DIABETIC EYE Medical Center EXAM] Future Scheduled [address] [facility] examination Medical Center (regime/therapy) [code = 732103265] Future Scheduled 1975 Urine screening for [facility] Test 00:00:00 protein (procedure) Medical Center [code = 611867581] Future Scheduled [address] EYE EXAM [facility] 00:00:00 [code = DIABETIC EYE Medical Center EXAM] Future Scheduled [address] [facility] 00:[facility]:00 examination Medical Center (regime/therapy) [code = 230077831] Future Scheduled 1975 Urine screening for [facility] 00:00:00 protein (procedure) Medical Center [code = 517371786] Future Scheduled [address]AB[address] EYE EXAM [facility] 00:00:00 [code = DIABETIC EYE Medical Center EXAM] Future Scheduled [address] [facility] 00:00:00 examination Medical Center (regime/therapy) [code = 831714135] Future Scheduled 1975 Urine screening for [facility] Test 00:00:00 protein (procedure) Medical Center [code = 598892938] Future Scheduled [address] DIAB[address] EYE EXAM [facility] 00:00:00 [code = DIABETIC EYE Medical Center EXAM] Future Scheduled [address] [facility] 00:00:00 examination Medical Center (regime/therapy) [code = 153452103] Future Scheduled 1975 Urine screening for [facility] Test 00:00:00 protein (procedure) Medical Center [code = 577030795] Future Scheduled [address] DIAB[address] EYE EXAM [facility] 00:00:00 [code = DIABETIC EYE Medical Center EXAM] Future Scheduled [address] [facility] 00:00:00 examination Medical Center (regime/therapy) [code = 981944363] Future Scheduled 1975 Urine screening for [facility] 00:00:00 protein (procedure) Medical Center [code = 596822126] Future Scheduled [address] DIAB[address] EYE EXAM [facility] 00:00:00 [code = DIABETIC EYE Medical Center EXAM] Future Scheduled [address] [facility] 00:00:00 examination Medical Center (regime/therapy) [code = 148911303] Future Scheduled [address]rine screening for [facility] 00:00:00 protein (procedure) [facility] [code = [id number]] Future Scheduled [address] [facility] 00:00:00 [code = DIABETIC EYE [facility] EXAM] Future Scheduled [address] [facility] examination [facility] (regime/therapy) [code = [id number]] Future Scheduled 1975 Urine screening for [facility] 00:00:00 protein (procedure) [facility] [code = [id number]] Future Scheduled [address]YE EXAM [facility] 00:00:00 [code = DIABETIC EYE [facility] EXAM] Future Scheduled [address] [facility]00 examination [facility] (regime/therapy) [code = 158158530] Future Scheduled 1975 Urine screening for [facility] 00:00:00 protein (procedure) [facility] [code = 704402385] Future Scheduled [address]YE EXAM [facility] 00:00:00 [code = DIABETIC EYE [facility] EXAM] Future Scheduled [address] EYE EXAM [facility] 00:00:00 [code = DIABETIC EYE [facility] EXAM] Future Scheduled [address] [facility]00 examination [facility] (regime/therapy) [code = [id number]] Future Scheduled 1975 Urine screening for [facility] 00:00:00 protein (procedure) [facility] [code = 486179064] Future Scheduled [address] [facility] 00:[facility]:00 examination [facility] (regime/therapy) [code = 057487570] Future Scheduled 1975 Urine screening for [facility] 00:00:00 protein (procedure) [facility] [code = 290964400] Future Scheduled [address] EXAM [facility] 00:00:00 [code = DIABETIC EYE [facility] EXAM] Future Scheduled [address] [facility] 00:[facility]:00 examination [facility] (regime/therapy) [code = 272832802] Future Scheduled 1975 Urine screening for [facility] 00:00:00 protein (procedure) [facility] [code = 192137648] Future Scheduled [address] EXAM [facility] 00:00:00 [code = DIABETIC EYE [facility] EXAM] Future Scheduled [address] [facility] 00:[facility]:00 examination [facility] (regime/therapy) [code = 038638041] Future Scheduled 1975 Urine screening for [facility] 00:00:00 protein (procedure) [facility] [code = 701270937] Future Scheduled [address] EXAM [facility] 00:00:00 [code = DIABETIC EYE [facility] EXAM] Future Scheduled [address] [facility] 00:[facility]:00 examination [facility] (regime/therapy) [code = 381216097] Future Scheduled 1975 Urine screening for [facility] 00:00:00 protein (procedure) [facility] [code = [id number]] Future Scheduled [address]YE EXAM [facility] 00:00:00 [code = DIABETIC EYE [facility] EXAM] Future Scheduled [address] [facility] 00:00:00 examination [facility] (regime/therapy) [code = 636525813] Future Scheduled 1975 Urine screening for [facility] 00:00:00 protein (procedure) [facility] [code = 896012006] Future Scheduled [address]YE EXAM [facility] 00:00:00 [code = DIABETIC EYE [facility] EXAM] Future Scheduled [address] [facility] 00:00:00 examination [facility] (regime/therapy) [code = [id number]] Future Scheduled [address]rine screening for [facility] 00:00:00 protein (procedure) [facility] [code = 995809892] Future Scheduled [address]YE EXAM [facility] 00:00:00 [code = DIABETIC EYE [facility] EXAM] Future Scheduled [address] [facility] 00:00:00 examination [facility] (regime/therapy) [code = 282762061] Future Scheduled 1975 Urine screening for [facility] 00:00:00 protein (procedure) [facility] [code = 638265273] Future Scheduled [address]YE EXAM [facility] 00:00:00 [code = DIABETIC EYE [facility] EXAM] Future Scheduled [address] [facility] 00:00:00 examination [facility] (regime/therapy) [code = 076896095] Future Scheduled 1975 Urine screening for [facility] 00:00:00 protein (procedure) [facility] [code = 094568735] Future Scheduled [address] EYE EXAM [facility] 00:00:00 [code = DIABETIC EYE [facility] EXAM] Future Scheduled [address] [facility] 00:00:00 examination [facility] (regime/therapy) [code = 970595238] Future Scheduled [address] Urine screening for [facility] 00:00:00 protein (procedure) [facility] [code = 919238015] Future Scheduled [address] EYE EXAM [facility] 00:00:00 [code = DIABETIC EYE [facility] EXAM] Future Scheduled [address] [facility] 00:00:00 examination [facility] (regime/therapy) [code = 106340014] Future Scheduled 1975 Urine screening for [facility] 00:00:00 protein (procedure) [facility] [code = 061783970] Future Scheduled [address]YE EXAM [facility] 00:00:00 [code = DIABETIC EYE [facility] EXAM] Future Scheduled [address] [facility] 00:00:00 examination [facility] (regime/therapy) [code = 845917201] Future Scheduled 1975 Urine screening for [facility] 00:00:00 protein (procedure) [facility] [code = 186871895] Future Scheduled [address] EYE EXAM [facility] 00:00:00 [code = DIABETIC EYE [facility] EXAM] Future Scheduled [address] [facility] 00:00:00 examination [facility] (regime/therapy) [code = 507778723] Future Scheduled 1975 Urine screening for [facility] 00:00:00 protein (procedure) [facility] [code = 757726519] Future Scheduled [address] EYE EXAM [facility] 00:00:00 [code = DIABETIC EYE [facility] EXAM] Future Scheduled [address] [facility] 00:00:00 examination [facility] (regime/therapy) [code = 542316733] Future Scheduled [address]rine screening for [facility] 00:00:00 protein (procedure) [facility] [code = 244814319] Future Scheduled [address]YE EXAM [facility] 00:00:00 [code = DIABETIC EYE [facility] EXAM] Future Scheduled [address] [facility] 00:00:00 examination [facility] (regime/therapy) [code = 415106275] Future Scheduled [address]rine screening for [facility] 00:00:00 protein (procedure) [facility] [code = 201044112] Future Scheduled [address] EYE EXAM [facility] 00:00:00 [code = DIABETIC EYE [facility] EXAM] Future Scheduled [address] [facility] 00:00:00 examination [facility] (regime/therapy) [code = 089368782] Future Scheduled 1975 Urine screening for [facility] 00:00:00 protein (procedure) [facility] [code = 131722941] Future Scheduled [address] EYE EXAM [facility] 00:00:00 [code = DIABETIC EYE [facility] EXAM] Future Scheduled [address] [facility] 00:00:00 examination [facility] (regime/therapy) [code = 872112625] Future Scheduled 1975 Urine screening for [facility] 00:00:00 protein (procedure) [facility] [code = 038519752] Future Scheduled [address] EYE EXAM [facility] 00:00:00 [code = DIABETIC EYE [facility] EXAM] Future Scheduled [address] [facility] 00:00:00 examination [facility] (regime/therapy) [code = 447391449] Future Scheduled 1975 Urine screening for [facility] 00:00:00 protein (procedure) [facility] [code = 178035118] Future Scheduled [address] EYE EXAM [facility] 00:00:00 [code = DIABETIC EYE [facility] EXAM] Future Scheduled [address] [facility] 00:00:00 examination [facility] (regime/therapy) [code = 815103716] Future Scheduled 1975 Urine screening for [facility] 00:00:00 protein (procedure) [facility] [code = 412058650] Future Scheduled 1965 COVID[facility] [code = COVID-[address] VACCINE (#1)] Future Scheduled 1965 COVID-19 [...] [facility] colon (procedure) [code = 853528871] Future Scheduled [address] [facility] 00:[facility]:00 [facility] colon (procedure) [code = 083109721] Future Scheduled [address] [facility] 00:00:00 [facility] colon (procedure) [code = 725251173] Future Scheduled [address] [facility] 00:00:00 [facility] colon (procedure) [code = 208787984] Future Scheduled 1965 Sigmoidoscopy [facility]] [facility] Future Scheduled [address] [facility] 00:00:00 (combo) [code = CT Medical C enter Colonography (combo)] Future Scheduled [address] [facility] 00:00:00 [facility] colon (procedure) [code = 011717380] Future Scheduled [address] [facility] 00:00:00 [facility] colon (procedure) [code = 499552823] Future Scheduled [address] [facility] 00:00:00 [facility] colon (procedure) [code = 494297181] Future Scheduled [address] [facility] 00:00:00 [facility] colon (procedure) [code = 986533013] Future Scheduled 1965 S[facility]oidoscopy [facility]] [facility] Future Scheduled [address] [facility] 00:00:00 (combo) [code = CT Medical C enter Colonography (combo)] Future Scheduled [address] [facility] 00:00:00 [facility] colon (procedure) [code = 806507573] Future Scheduled [address] [facility] 00:00:00 [facility] colon (procedure) [code = 079459363] Future Scheduled [address] [facility] 00:00:00 [facility] colon (procedure) [code = 915878028] Future Scheduled [address] [facility] 00:00:00 [facility] colon (procedure) [code = 334697643] Future Scheduled 1965 S[facility]oidoscopy [facility]] [facility] Future Scheduled [address] [facility] 00:00:00 (combo) [code = CT [facility] C enter Colonography (combo)] Future Scheduled [address] [facility] 00:00:00 [facility] colon (procedure) [code = 960162993] Future Scheduled [address] [facility] 00:00:00 [facility] colon (procedure) [code = 883481397] Future Scheduled [address] [facility] 00:00:00 [facility] colon (procedure) [code = 129106361] Future Scheduled [address] [facility] 00:00:00 [facility] colon (procedure) [code = 704174177] Future Scheduled 1965 S[facility]oidoscopy [facility]] [facility] Future Scheduled [address] [facility] 00:00:00 (combo) [code = CT [facility] enter Colonography (combo)] Future Scheduled [address] [facility] 00:00:00 [facility] colon (procedure) [code = 564482720] Future Scheduled [address] [facility] 00:00:00 [facility] colon (procedure) [code = 159977063] Future Scheduled [address] [facility] 00:00:00 [facility] colon (procedure) [code = 801543206] Future Scheduled [address] [facility] 00:00:00 [facility] colon (procedure) [code = [id number]] Future Scheduled 1965 S[facility]oidoscopy [facility] Future Scheduled [address] [facility] 00:00:00 (combo) [code = CT [facility] enter Colonography (combo)] Future Scheduled [address] [facility] 00:00:00 [facility] colon (procedure) [code = 420813649] Future Scheduled [address] [facility] 00:00:00 [facility] colon (procedure) [code = 721301081] Future Scheduled [address] [facility] 00:00:00 [facility] colon (procedure) [code = 576386709] Future Scheduled [address] [facility] 00:00:00 [facility] colon (procedure) [code = 319077735] Future Scheduled 1965 S[facility]oidoscopy [facility]] [facility] Future Scheduled [address] [facility] 00:00:00 (combo) [code = CT [facility] enter Colonography (combo)] Future Scheduled [address] [facility] 00:00:00 [facility] colon (procedure) [code = 680104432] Future Scheduled [address] [facility] 00:00:00 [facility] colon (procedure) [code = 807210858] Future Scheduled [address] [facility] 00:00:00 [facility] colon (procedure) [code = 577188720] Future Scheduled [address] [facility] 00:00:00 [facility] colon (procedure) [code = 369303294] Future Scheduled 1965 Sigmoidoscopy [code = [facility] [...] [facility] colon (procedure) [code = 279065169] Future Scheduled [address] [facility] 00:00:00 [facility] colon (procedure) [code = 805870307] Future Scheduled [address] [facility] 00:00:00 [facility] colon (procedure) [code = 671138476] Future Scheduled [address] [facility] 00:00:00 [facility] colon (procedure) [code = 277899419] Future Scheduled [address] [facility] 00:00:00 [facility] colon (procedure) [code = 606974623] Future Scheduled 1965 S[facility]oidoscopy [facility]] [facility] Future Scheduled [address] [facility] 00:00:00 [facility] colon (procedure) [code = 900353562] Future Scheduled [address] [facility] 00:00:00 [facility] colon (procedure) [code = 946057258] Future Scheduled [address] [facility] 00:00:00 (combo) [code = CT [facility] enter Colonography (combo)] Future Scheduled [address] [facility] 00:00:00 [facility] colon (procedure) [code = 220743614] Future Scheduled [address] [facility] 00:00:00 [facility] colon (procedure) [code = 906844275] Future Scheduled [address] [facility] 00:00:00 [facility] colon (procedure) [code = 603433512] Future Scheduled [address] [facility] 00:00:00 [facility] colon (procedure) [code = 454695006] Future Scheduled [address] [facility] 00:00:00 [facility] colon (procedure) [code = 271168670] Future Scheduled 1965 Sigmoidoscopy [code = [facility] [...] [facility] colon (procedure) [code = 866308915] Future Scheduled [address] [facility] 00:00:00 [facility] colon (procedure) [code = 807087716] Future Scheduled [address] [facility] 00:00:00 [facility] colon (procedure) [code = 699784303] Future Scheduled [address] [facility] 00:00:00 [facility] colon (procedure) [code = [id number]] Future Scheduled 1965 S[facility]oidoscopy [facility]] [facility] Future Scheduled [address] [facility] 00:00:00 (combo) [code = CT [facility] C enter Colonography (combo)] Future Scheduled [address] [facility] 00:00:00 [facility] colon (procedure) [code = 923215092] Future Scheduled [address] [facility] 00:00:00 [facility] colon (procedure) [code = 595683198] Future Scheduled [address] [facility] 00:00:00 [facility] colon (procedure) [code = 976936228] Future Scheduled [address] [facility] 00:00:00 [facility] colon (procedure) [code = 716204076] Future Scheduled 1965 S[facility]oidoscopy [facility]] [facility] Future Scheduled [address] [facility] 00:00:00 (combo) [code = CT [facility] C enter Colonography (combo)] Future Scheduled [address] [facility] 00:00:00 [facility] colon (procedure) [code = 635720677] Future Scheduled [address] [facility] 00:00:00 [facility] colon (procedure) [code = 813360383] Future Scheduled [address] [facility] 00:00:00 [facility] colon (procedure) [code = 375626406] Future Scheduled [address] [facility] 00:00:00 [facility] colon (procedure) [code = 673197010] Future Scheduled 1965 S[facility]oidoscopy [facility] Future Scheduled [address] [facility] 00:00:00 (combo) [code = CT [facility] enter Colonography (combo)] Future Scheduled [address] [facility] 00:00:00 [facility] colon (procedure) [code = 061471847] Future Scheduled [address] [facility] 00:00:00 [facility] colon (procedure) [code = 598578071] Future Scheduled [address] [facility] 00:00:00 [facility] colon (procedure) [code = 606291485] Future Scheduled [address] [facility] 00:00:00 [facility] colon (procedure) [code = [id number]] Future Scheduled 1965 S[facility]oidoscopy [facility]] [facility] Future Scheduled [address] [facility] 00:00:00 (combo) [code = CT Medical [facility] enter Colonography (combo)] Future Scheduled [address] [facility] 00:00:00 [facility] colon (procedure) [code = 250209930] Future Scheduled [address] [facility] 00:00:00 [facility] colon (procedure) [code = 764660820] Future Scheduled [address] [facility] 00:00:00 [facility] colon (procedure) [code = 584083581] Future Scheduled [address] [facility] 00:00:00 [facility] colon (procedure) [code = 075356352] Future Scheduled 1965 S[facility]oidoscopy [facility]] [facility] Future Scheduled [address] [facility] 00:00:00 (combo) [code = CT Medical [facility] enter Colonography (combo)] Future Scheduled [address] [facility] 00:00:00 [facility] colon (procedure) [code = 016976432] Future Scheduled [address] [facility] 00:00:00 [facility] colon (procedure) [code = 782678851] Future Scheduled [address] [facility] 00:00:00 [facility] colon (procedure) [code = 626299441] Future Scheduled [address] [facility] 00:00:00 [facility] colon (procedure) [code = 073228811] Future Scheduled 1965 S[facility]oidoscopy [facility] Future Scheduled [address] [facility] 00:00:00 (combo) [code = CT [facility] enter Colonography (combo)] Future Scheduled [address] [facility] 00:00:00 [facility] colon (procedure) [code = 334877702] Future Scheduled [address] [facility] 00:00:00 [facility] colon (procedure) [code = 608255124] Future Scheduled [address] [facility] 00:00:00 [facility] colon (procedure) [code = 620093992] Future Scheduled [address] [facility] 00:00:00 [facility] colon (procedure) [code = 643772138] Future Scheduled 1965 S[facility]oidoscopy [facility]] [facility] Future Scheduled [address] [facility] 00:00:00 (combo) [code = CT Medical [facility] enter Colonography (combo)] Future Scheduled [address] [facility] 00:00:00 [facility] colon (procedure) [code = 446711006] Future Scheduled [address] [facility] 00:00:00 [facility] colon (procedure) [code = 014742380] Future Scheduled [address] [facility] 00:00:00 [facility] colon (procedure) [code = 260945389] Future Scheduled [address] [facility] 00:00:00 [facility] colon (procedure) [code = 681826007] Future Scheduled 1965 Sigmoidoscopy [code = [facility] [...] [facility] colon (procedure) [code = 512592061] Future Scheduled [address] [facility] 00:00:00 [facility] colon (procedure) [code = 742162684] Future Scheduled [address] [facility] 00:00:00 [facility] colon (procedure) [code = 055751050] Future Scheduled [address] [facility] 00:00:00 [facility] colon (procedure) [code = 101419581] Future Scheduled 1965 S[facility]oidoscopy [facility]] [facility] Future Scheduled [address] [facility] 00:00:00 [facility] colon (procedure) [code = 150570550] Future Scheduled [address] [facility] 00:00:00 [facility] colon (procedure) [code = 954092044] Future Scheduled [address] [facility] 00:00:00 [facility] colon (procedure) [code = 991427915] Future Scheduled [address] [facility] 00:00:00 (combo) [code = CT Medical C enter Colonography (combo)] Future Scheduled [address] [facility] 00:00:00 [facility] colon (procedure) [code = 256819665] Future Scheduled [address] [facility] 00:00:00 [facility] colon (procedure) [code = 058610620] Future Scheduled [address] [facility] 00:00:00 [facility] colon (procedure) [code = 482307456] Future Scheduled [address] [facility] 00:00:00 [facility] colon (procedure) [code = 377652467] Future Scheduled 1965 S[facility]oidoscopy [facility]] [facility] Future Scheduled [address] [facility] 00:00:00 [facility] colon (procedure) [code = 282662522] Future Scheduled 1965 S[facility]oidoscopy [code [facility]] [facility] Future Scheduled [address] [facility] 00:00:00 (combo) [code = CT Medical C enter Colonography (combo)] Future Scheduled [address] [facility] 00:00:00 [facility] colon (procedure) [code = 787681463] Future Scheduled [address] [facility] 00:00:00 [facility] colon (procedure) [code = 987826468] Future Scheduled [address] [facility] 00:00:00 [facility] colon (procedure) [code = 068556099] Future Scheduled [address] [facility] 00:00:00 [facility] colon (procedure) [code = 351863258] Future Scheduled 1965 [facility]oidoscopy [facility]] [facility] Future Scheduled [address] [facility] 00:00:00 (combo) [code = CT [facility] enter Colonography (combo)] Future Scheduled [address] [facility]procedure[facility] [code = 908098953] Future Scheduled [address] [facility]00 [facility] (procedure) [code = 362647633] Future Scheduled [address] [facility] (procedure) [code = 284620893] Future Scheduled [address] [facility]procedure) [code = 344427027] Future Scheduled 1965 [facility] Future Scheduled [address] [facility] 00:00:00 (combo) [code = CT Medical C enter Colonography (combo)] Future Scheduled [address] [facility]00 [facility] (procedure) [code = 481143096] Future Scheduled [address] [facility]:00 [facility] (procedure) [code = 770344343] Future Scheduled [address] [facility]00 [facility] (procedure) [code = 837734500] Future Scheduled [address] [facility]procedure) [code = 679148717] Future Scheduled 1965 [facility] Future Scheduled [address] [facility] 00:00:00 (combo) [code = CT Medical [facility] enter Colonography (combo)] Future Scheduled [address] [facility]:00 [facility] (procedure) [code = 969591984] Future Scheduled [address] [facility] 00[facility]:00 [facility] (procedure) [code = 005406109] Future Scheduled [address] [facility] 00[facility]00 [facility] (procedure) [code = 556786114] Future Scheduled [address] [facility] 00:[facility]:00 [facility] (procedure) [code = 677646109] Future Scheduled 1965 [facility]] [facility] Future Scheduled [address] [facility] 00:00:00 (combo) [code = CT Medical C enter Colonography (combo)] Future Scheduled [address] [facility] 00:[facility]:00 [facility] (procedure) [code = 309292355] Future Scheduled [address] [facility] 00:[facility]:00 [facility] (procedure) [code = 376979672] Future Scheduled [address] [facility] 00:[facility]:00 [facility] (procedure) [code = 038342702] Future Scheduled [address] [facility] 00:[facility]:00 [facility] (procedure) [code = 933594518] Future Scheduled 1965 [facility]] Medical [facility] Future Scheduled [address] [facility] 00:00:00 (combo) [code = CT Medical C enter Colonography (combo)] Future Scheduled [address] [facility] 00[facility]00:00 [facility] (procedure) [code = 377770470] Future Scheduled [address] [facility] 00:00:00 [facility] (procedure) [code = 191893258] Future Scheduled [address] [facility] 00:[facility]:00 [facility] (procedure) [code = 601761568] Future Scheduled [address] [facility] 00:[facility]:00 [facility] (procedure) [code = 685995548] Future Scheduled 1965 [facility]oidoscopy [facility]] Medical [facility] Future Scheduled [address] [facility] 00:00:00 (combo) [code = CT Medical C enter Colonography (combo)] Future Scheduled [address] [facility] 00:[facility]:00 [facility] (procedure) [code = 477619725] Future Scheduled [address] [facility] 00:[facility]:00 [facility] (procedure) [code = 128544952] Future Scheduled [address] [facility] 00:00:00 [facility] (procedure) [code = 717111296] Future Scheduled [address] [facility] 00:00:00 [facility] of [facility] colon (procedure) [code = 701019179] Future Scheduled 1965 [facility]oidoscopy [facility]] Medical [facility] r Goal Plan of Care Note [code = 31555-6] Goal Plan of Care Note [code = 34804-0] Goal Plan of Care Note [code = 02094-3] Goal Plan of Care Note [code = 29250-7] Goal Plan of Care Note [code = 15810-7] Goal Plan of Care Note [code = 62270-7] Goal Plan of Care Note [code = 72097-6] Goal Plan of Care Note [code = 89457-9] Goal Plan of Care Note [code = 38277-7] Goal Plan of Care Note [code = 08767-6] Goal Plan of Care Note [code = 89362-6] Goal Plan of Care Note [code = 90565-1] Goal Plan of Care Note [code = 33866-6] Goal Plan of Care Note [code = 27569-8] Goal Plan of Care Note [code = 73199-2] Goal Plan of Care Note [code = 90284-8] Goal Plan of Care Note [code = 36506-6] Goal Plan of Care Note [code = 81685-7] Goal Plan of Care Note [code = 76152-9] Goal Plan of Care Note [code = 61141-5] Goal Plan of Care Note [code = 92826-6] Goal Plan of Care Note [code = 49628-5] Goal Plan of Care Note [code = 76149-5] Goal Plan of Care Note [code = 05750-1] Goal Plan of Care Note [code = 64595-3] Goal Plan of Care Note [code = 20220-1] Goal Plan of Care Note [code = 84615-2] Goal Plan of Care Note [code = 22626-5] Goal Plan of Care Note [code = 47182-4] Goal Plan of Care Note [code = 06446-6] Goal Plan of Care Note [code = 04144-0] Goal Plan of Care Note [code = 71402-3] Goal Plan of Care Note [code = 08009-2] Goal Plan of Care Note [code = 40998-4] Goal Plan of Care Note [code = 76652-8] Goal Plan of Care Note [code = 61094-2] Goal Plan of Care Note [code = 23636-4] Goal Plan of Care Note [code = 17530-9] Goal Plan of Care Note [code = 30308-4] Goal Plan of Care Note [code = 50999-9] Goal Plan of Care Note [code = 02044-8] Goal Plan of Care Note [code = 85808-9] Goal Plan of Care Note [code = 67165-6] Goal Plan of Care Note [code = 50697-0] Goal Plan of Care Note [code = 39719-8] Goal Plan of Care Note [code = 29980-8] Goal Plan of Care Note [code = 85580-6] Goal Plan of Care Note [code = 29209-6] Goal Plan of Care Note [code = 55020-9] Goal Plan of Care Note [code = 81398-6] Goal Plan of Care Note [code = 88257-3] Goal Plan of Care Note [code = 38826-3] Goal Plan of Care Note [code = 81374-6] Goal Plan of Care Note [code = 30587-1] Goal Plan of Care Note [code = 69774-1] Goal Plan of Care Note [code = 91562-4] Goal Plan of Care Note [code = 24327-1] Goal Plan of Care Note [code = 05664-3] Goal Plan of Care Note [code = 47164-6] Goal Plan of Care Note [code = 71950-4] Goal Plan of Care Note [code = 30546-3] Goal Plan of Care Note [code = 85171-6] Goal Plan of Care Note [code = 96476-8] Goal Plan of Care Note [code = 23259-4] Goal Plan of Care Note [code = 59557-0] Goal Plan of Care Note [code = 44687-7] Goal Plan of Care Note [code = 99852-9] Goal Plan of Care Note [code = 30481-1] Goal Plan of Care Note [code = 80975-1] Goal Plan of Care Note [code = 31854-9] Goal Plan of Care Note [code = 51627-5] Goal Plan of Care Note [code = 47070-3] Goal Plan of Care Note [code = 52198-5] Goal Plan of Care Note [code = 39666-9] Goal Plan of Care Note [code = 56420-2] Goal Plan of Care Note [code = 52940-2] Goal Plan of Care Note [code = 08936-8] Goal Plan of Care Note [code = 70048-5] Goal Plan of Care Note [code = 99323-5] Goal Plan of Care Note [code = 80358-0] Goal Plan of Care Note [code = 67951-9] Goal Plan of Care Note [code = 93788-4] Goal Plan of Care Note [code = 96002-9] Goal Plan of Care Note [code = 85605-7] Goal Plan of Care Note [code = 36917-4] Goal Plan of Care Note [code = 12637-1] Goal Plan of Care Note [code = 46121-8] Goal Plan of Care Note [code = 66223-8] Goal Plan of Care Note [code = 26585-3] Goal Plan of Care Note [code = 33667-9] Goal Plan of Care Note [code = 35526-0] Goal Plan of Care Note [code = 78782-1] Goal Plan of Care Note [code = 17860-7] Goal Plan of Care Note [code = 08621-2] Goal Plan of Care Note [code = 26837-0] Goal Plan of Care Note [code = 56140-7] Goal Plan of Care Note [code = 25512-9] Goal Plan of Care Note [code = 57851-5] Goal Plan of Care Note [code = 92229-9] Goal Plan of Care Note [code = 27838-9] Goal Plan of Care Note [code = 90374-3] Goal Plan of Care Note [code = 25498-6] Goal Plan of Care Note [code = 99609-2] Goal Plan of Care Note [code = 53537-9] Goal Plan of Care Note [code = 88161-9] Goal Plan of Care Note [code = 24028-1] Goal Plan of Care Note [code = 44631-2] Goal Plan of Care Note [code = 67753-8] Goal Plan of Care Note [code = 67210-9] Goal Plan of Care Note [code = 34226-6] Goal Plan of Care Note [code = 29018-6] Goal Plan of Care Note [code = 14118-3] Goal Plan of Care Note [code = 83703-0] Goal Plan of Care Note [code = 64351-3] Goal Plan of Care Note [code = 91684-8] Goal Plan of Care Note [code = 61719-3] Goal Plan of Care Note [code = 16643-7] Goal Plan of Care Note [code = 51959-0] Goal Plan of Care Note [code = 04221-8] Goal Plan of Care Note [code = 98226-4] Goal Plan of Care Note [code = 13132-4] Goal Plan of Care Note [code = 23159-9] Goal Plan of Care Note [code = 98432-1] Goal Plan of Care Note [code = 58507-3] Goal Plan of Care Note [code = 11369-6] Goal Plan of Care Note [code = 25748-7] Goal Plan of Care Note [code = 77946-1] Goal Plan of Care Note [code = 46986-2] Goal Plan of Care Note [code = 91631-9] Goal Plan of Care Note [code = 60223-1] Goal Plan of Care Note [code = 56240-2] Goal Plan of Care Note [code = 34557-9] Goal Plan of Care Note [code = 14581-3] Goal Plan of Care Note [code = 90365-7] Goal Plan of Care Note [code = 37258-8] Goal Plan of Care Note [code = 98907-1] Goal Plan of Care Note [code = 23675-2] Goal Plan of Care Note [code = 79948-2] Goal Plan of Care Note [code = 33726-5] Goal Plan of Care Note [code = 71112-2] Goal Plan of Care Note [code = 32350-9] Goal Plan of Care Note [code = 92325-1] Goal Plan of Care Note [code = 59478-6] Goal Plan of Care Note [code = 79101-0] Goal Plan of Care Note [code = 51398-3] Goal Plan of Care Note [code = 68586-1] Goal Plan of Care Note [code = 39444-8] Goal Plan of Care Note [code = 76184-2] Goal Plan of Care Note [code = 24570-7] Goal Plan of Care Note [code = 19533-6] Goal Plan of Care Note [code = 33918-2] Goal Plan of Care Note [code = 90736-1] Goal Plan of Care Note [code = 14502-9] Goal Plan of Care Note [code = 58624-1] Goal Plan of Care Note [code = 66119-1] Goal Plan of Care Note [code = 10111-8] Goal Plan of Care Note [code = 13495-7] Goal Plan of Care Note [code = 77818-7] Goal Plan of Care Note [code = 57618-3] Goal Plan of Care Note [code = 77619-6] Goal Plan of Care Note [code = 73486-8] Goal Plan of Care Note [code = 15737-7] Goal Plan of Care Note [code = 26860-3] Goal Plan of Care Note [code = 55229-4] Goal Plan of Care Note [code = 27751-6] Goal Plan of Care Note [code = 70960-2] Goal Plan of Care Note [code = 23718-1] Goal Plan of Care Note [code = 79682-4] Goal Plan of Care Note [code = 31385-7] Goal Plan of Care Note [code = 62726-7] Goal Plan of Care Note [code = 34327-3] Goal Plan of Care Note [code = 09342-9] Goal Plan of Care Note [code = 41049-1] Goal Plan of Care Note [code = 08651-8] Goal Plan of Care Note [code = 06284-5] Goal Plan of Care Note [code = 53992-7] Goal Plan of Care Note [code = 71423-2] Goal Plan of Care Note [code = 26108-9] Goal Plan of Care Note [code = 59178-2] Goal Plan of Care Note [code = 08257-9] Goal Plan of Care Note [code = 99459-0] Goal Plan of Care Note [code = 13371-5] Goal Plan of Care Note [code = 54774-2] Goal Plan of Care Note [code = 39782-6] Goal Plan of Care Note [code = 51046-1] Goal Plan of Care Note [code = 92559-4] Goal Plan of Care Note [code = 30212-3] Goal Plan of Care Note [code = 37880-8] Goal Plan of Care Note [code = 08306-1] Goal Plan of Care Note [code = 06382-6] Goal Plan of Care Note [code = 48721-3] Goal Plan of Care Note [code = 28556-6] Goal Plan of Care Note [code = 29338-3] Goal Plan of Care Note [code = 60987-8] Goal Plan of Care Note [code = 17662-8] Goal Plan of Care Note [code = 62946-0] Goal Plan of Care Note [code = 98712-9] Goal Plan of Care Note [code = 70936-0] Goal Plan of Care Note [code = 16724-6] Goal Plan of Care Note [code = 04837-0] Goal Plan of Care Note [code = 28555-5] Goal Plan of Care Note [code = 81755-6] Goal Plan of Care Note [code = 13154-4] Goal Plan of Care Note [code = 85084-6] Goal Plan of Care Note [code = 59518-5] Goal Plan of Care Note [code = 18952-3] Goal Plan of Care Note [code = 19767-3] Goal Plan of Care Note [code = 67069-7] Goal Plan of Care Note [code = 63460-0] Goal Plan of Care Note [code = 86382-6] Goal Plan of Care Note [code = 19863-2] Goal Plan of Care Note [code = 55272-2] Goal Plan of Care Note [code = 95263-2] Goal Plan of Care Note [code = 89777-6] Goal Plan of Care Note [code = 57360-9] Goal Plan of Care Note [code = 31039-8] Goal Plan of Care Note [code = 47612-3] Goal Plan of Care Note [code = 43799-5] Goal Plan of Care Note [code = 68571-8] Goal Plan of Care Note [code = 03166-7] Goal Plan of Care Note [code = 26584-1] Goal Plan of Care Note [code = 45675-8] Goal Plan of Care Note [code = 36643-6] Goal Plan of Care Note [code = 62537-1] Goal Plan of Care Note [code = 16071-3] Goal Plan of Care Note [code = 30408-7] Goal Plan of Care Note [code = 95532-7] Goal Plan of Care Note [code = 05774-3] Goal Plan of Care Note [code = 30249-6] Goal Plan of Care Note [code = 60530-2] Goal Plan of Care Note [code = 74029-0] Goal Plan of Care Note [code = 59573-6] Goal Plan of Care Note [code = 10888-1] Goal Plan of Care Note [code = 08494-8] Goal Plan of Care Note [code = 51085-6] Goal Plan of Care Note [code = 91085-5] Goal Plan of Care Note [code = 99003-3] Goal Plan of Care Note [code = 77640-5] Goal Plan of Care Note [code = 41280-3] Goal Plan of Care Note [code = 36773-8] Goal Plan of Care Note [code = 37562-9] Goal Plan of Care Note [code = 12955-3] Goal Plan of Care Note [code = 99757-5] Goal Plan of Care Note [code = 53592-2] Goal Plan of Care Note [code = 82426-5] Goal Plan of Care Note [code = 66973-1] Goal Plan of Care Note [code = 41225-4] Goal Plan of Care Note [code = 85504-3] Goal Plan of Care Note [code = 11957-5] Goal Plan of Care Note [code = 16526-8] Goal Plan of Care Note [code = 21228-0] Goal Plan of Care Note [code = 27890-2] Goal Plan of Care Note [code = 31499-0] Goal Plan of Care Note [code = 93991-8] Goal Plan of Care Note [code = 35057-5] Goal Plan of Care Note [code = 85975-8] Goal Plan of Care Note [code = 76533-8] Goal Plan of Care Note [code = 69379-8] Goal Plan of Care Note [code = 53488-6] Goal Plan of Care Note [code = 40959-5] Goal Plan of Care Note [code = 56567-8] Goal Plan of Care Note [code = 19910-1] Goal Plan of Care Note [code = 45720-0] Goal Plan of Care Note [code = 45295-8] Goal Plan of Care Note [code = 17204-9] Goal Plan of Care Note [code = 78633-5] Goal Plan of Care Note [code = 33730-3] Goal Plan of Care Note [code = 35172-2] Goal Plan of Care Note [code = 33412-7] Goal Plan of Care Note [code = 01173-2] Goal Plan of Care Note [code = 38144-0] Goal Plan of Care Note [code = 67114-0] Goal Plan of Care Note [code = 88591-7] Goal Plan of Care Note [code = 19115-6] Goal Plan of Care Note [code = 24226-5] Goal Plan of Care Note [code = 46538-4] Goal Plan of Care Note [code = 13761-9] Goal Plan of Care Note [code = 07916-5] Goal Plan of Care Note [code = 10919-8] Goal Plan of Care Note [code = 70665-2] Goal Plan of Care Note [code = 72839-8] Goal Plan of Care Note [code = 62533-1] Goal Plan of Care Note [code = 25273-4] Goal Plan of Care Note [code = 63415-7] Goal Plan of Care Note [code = 66978-0] Goal Plan of Care Note [code = 13428-3] Goal Plan of Care Note [code = 68710-2] Goal Plan of Care Note [code = 34822-9] Goal Plan of Care Note [code = 91772-2] Goal Plan of Care Note [code = 90630-0] Goal Plan of Care Note [code = 18396-7] Goal Plan of Care Note [code = 27799-5] Goal Plan of Care Note [code = 45014-6] Goal Plan of Care Note [code = 80041-8] Goal Plan of Care Note [code = 77690-4] Goal Plan of Care Note [code = 33763-0] Goal Plan of Care Note [code = 67309-6] Goal Plan of Care Note [code = 10271-8] Goal Plan of Care Note [code = 79184-4] Goal Plan of Care Note [code = 52963-6] Goal Plan of Care Note [code = 58338-8] Goal Plan of Care Note [code = 26916-3] Goal Plan of Care Note [code = 45865-5] Goal Plan of Care Note [code = 34094-1] Goal Plan of Care Note [code = 04907-7] Goal Plan of Care Note [code = 01569-1] Goal Plan of Care Note [code = 73467-3] Goal Plan of Care Note [code = 47131-5] Goal Plan of Care Note [code = 57071-6] Goal Plan of Care Note [code = 36269-4] Goal Plan of Care Note [code = 06217-9] Goal Plan of Care Note [code = 13598-5] Goal Plan of Care Note [code = 90511-3] Goal Plan of Care Note [code = 99361-0] Goal Plan of Care Note [code = 04416-7] Goal Plan of Care Note [code = 33777-3] Goal Plan of Care Note [code = 86423-4] Goal Plan of Care Note [code = 32750-3] Goal Plan of Care Note [code = 33371-7] Goal Plan of Care Note [code = 05594-6] Goal Plan of Care Note [code = 92716-5] Goal Plan of Care Note [code = 47259-8] Goal Plan of Care Note [code = 90198-6] Goal Plan of Care Note [code = 86184-4] Goal Plan of Care Note [code = 50720-8] Goal Plan of Care Note [code = 05708-7] Goal Plan of Care Note [code = 49527-5] Goal Plan of Care Note [code = 57742-8] Goal Plan of Care Note [code = 26859-5] Goal Plan of Care Note [code = 38974-5] Goal Plan of Care Note [code = 51121-9] Goal Plan of Care Note [code = 14314-4] Goal Plan of Care Note [code = 23419-1] Goal Plan of Care Note [code = 19815-2] Goal Plan of Care Note [code = 46743-3] Goal Plan of Care Note [code = 90843-1] Goal Plan of Care Note [code = 70484-0] Goal Plan of Care Note [code = 59526-5] Goal Plan of Care Note [code = 24605-0] Goal Plan of Care Note [code = 15025-4] Goal Plan of Care Note [code = 93420-1] Goal Plan of Care Note [code = 12772-2] Goal Plan of Care Note [code = 24609-7] Goal Plan of Care Note [code = 14601-8] Goal Plan of Care Note [code = 35783-9] Goal Plan of Care Note [code = 72745-3] Goal Plan of Care Note [code = 92173-2] Goal Plan of Care Note [code = 40161-9] Goal Plan of Care Note [code = 03175-4] Goal Plan of Care Note [code = 55798-9] Goal Plan of Care Note [code = 33669-3] Goal Plan of Care Note [code = 33749-6] Goal Plan of Care Note [code = 26384-7] Goal Plan of Care Note [code = 11116-3] Goal Plan of Care Note [code = 57475-1] Goal Plan of Care Note [code = 85126-8] Goal Plan of Care Note [code = 00560-1] Goal Plan of Care Note [code = 85633-8] Goal Plan of Care Note [code = 71486-4] Goal Plan of Care Note [code = 21929-7] Goal Plan of Care Note [code = 72709-5] Goal Plan of Care Note [code = 95304-3] Goal Plan of Care Note [code = 51967-2] Goal Plan of Care Note [code = 16088-5] Goal Plan of Care Note [code = 13963-1] Goal Plan of Care Note [code = 36508-2] Goal Plan of Care Note [code = 74389-8] Goal Plan of Care Note [code = 75639-0] Goal Plan of Care Note [code = 22541-1] Goal Plan of Care Note [code = 35381-6] Goal Plan of Care Note [code = 19327-4] Goal Plan of Care Note [code = 53948-6] Goal Plan of Care Note [code = 85923-2] Goal Plan of Care Note [code = 32966-7] Goal Plan of Care Note [code = 33068-6] Goal Plan of Care Note [code = 33253-6] Goal Plan of Care Note [code = 56936-0] Goal Plan of Care Note [code = 89800-5] Goal Plan of Care Note [code = 52023-9] Goal Plan of Care Note [code = 99350-7] Goal Plan of Care Note [code = 58192-3] Goal Plan of Care Note [code = 15290-5] Goal Plan of Care Note [code = 05861-5] Goal Plan of Care Note [code = 75482-4] Goal Plan of Care Note [code = 17162-0] Goal Plan of Care Note [code = 84968-3] Goal Plan of Care Note [code = 86852-7] Encounters Start End Encounter Admission Attending Care Care Encounter Source Date/Time Date/Time Type Type Clinicians Facility Department ID 2022-10-04 [place] [id number] Methodi 00:00:[address] 3.430.2.7 Hospit a .3.622450 l .8 2022-10-[address] [id number] 25 Methodi 00:00:[address] 3.430.2.7 Hospit a .3.428193 l .8 2022-10-03 [facility] [id number] [facility] 00[facility]:00 Encounter [facility] 2022-10-03 [facility] [id number] [facility] 00:00:00 Encounter [facility] 2022-04-01 Outpatient 3 [id number] ENC[facility] REF [id number] [facility] 15:21:07 [facility] [place] 2022-03-31 Outpatient 3 [id number] ENCPL REF [address] [facility] 14:48:02 [facility] [place] 2022-03-25 Outpatient 3 [id number] ENCPL REF [id number] [facility] 10:48:24 [facility] [place] 2021-02-05 Outpatient BHARAT, [facility] [id number] [facility] 05:27:44 IRMA 2021-02-04 Outpatient ALAM, [facility] [id number] [facility] 23:01:57 MAHBOOB 2022-10-15 2022-10-15 Orders Doctor DECKER 1.2.840.114 [id number] [facility] 00:00:00 00:00:00 Only Unassigned, RONNY 350.1.13.10 ity of [place] [facility] 4.2.7.2.686 Tony as [id number] [facility] [address] 2022-10-13 2022-10-13 Outpatient SFA SFA [id number] 023 [place] 14:26:27 14:26:27 0613 [facility] 2022-10-09 2022-10-09 Transition RICHIE [place] 1.2.840.114 10 [id number] [facility] 00:00:00 00:00:00 of Care Bambi Gardner MANCINI 350.1.13.10 i ty of [place] [id number] [facility] [address] 2022-10-03 2022-10-08 Outpatient U CAMILLE LANDEROS [facility] 1 [id number] [facility] 23:30:00 12:30:00 CAMILLE LANDEROS [facility] 2022-09-22 2022-09-22 Outpatient SFA SFA [id number] 023 [place] 13:46:32 13:46:32 0523 [facility] 2022-09-10 2022-09-10 Outpatient SFA SFA [id number] 023 [place] 08:13:34 08:13:34 0511 [facility] 2022-09-08 2022-09-08 Outpatient SFA SFA [id number] 023 [place] 17:33:06 17:33:06 0509 [facility] 2022-08-19 2022-08-19 Outpatient SFA SFA [id number] 023 [place] 10:53:44 10:53:44 0419 [facility] 2022-08-18 2022-08-18 Outpatient Rayne DENNISON [facility] [id number] Univers 00:00:00 00:00:00 HO [facility] 2022-04-21 2022-07-23 Outpatient RECERTIFIC MICHAEL ENCCLR ENCCLR [id number] ENCCLR 00:00:00 00:00:00 JACINTO WEBBER 2022-07-20 2022-07-20 Outpatient SFA SFA [id number] 023 [place] 11:34:05 11:34:05 0320 [facility] 2022-06-29 2022-06-29 Outpatient SFA SFA [id number] 023 [place] 11:09:32 11:09:32 0227 F Martínez 2022-06-09 2022-06-09 Outpatient Rayne FERNANDEZ [facility] [id number] Univers 13:30:00 13:30:00 GIORGIOONG ity of [facility] 2022-05-28 2022-05-28 Outpatient [facility] [id number] 023 [place] 09:36:19 09:36:19 0126 F Martínez 2022-05-28 2022-05-28 Orders Doctor BRIANNE [id number] Univers 00:00:00 00:00:00 Only Unassigned, RONNY [id number] ity of [facility] [id number] Tony as [id number] [address] 2022-04-23 2022-04-23 Outpatient [facility] [id number] 022 [place] 11:12:51 11:12:51 1222 F Martínez 2022-04-23 2022-04-23 Outpatient [id number]- [id number] 00:00:00 00:00:00 Visit 5z43-950c g44-537o-7 -8818-496 [id number] [id number] 2022-04-22 2022-04-22 Outpatient [facility] [id number] 022 Enoch 11:56:37 11:56:37 1221 F Martínez 2022-04-21 2022-04-21 Outpatient KEKE COVARRUBIAS-KYLIE ENCCLR ENCCLR [id number] ENCCLR 00:00:00 00:00:00 ADMISSION Y, GERRI 2022-04-20 2022-04-20 Outpatient [facility] [id number] 022 Enoch 13:44:26 13:44:26 1219 F Martínez 2022-04-20 2022-04-20 Outpatient se03900z- [id number] fa [id number] 00:00:00 00:00:00 Visit 868d-4ba4 68d-4ba4-8 -857d-890 57d-8900b2 [id number] 75047j 2022-04-07 2022-04-17 Inpatient 3 [facility] ENCPL OT 5814 Encompa 18:25:00 16:40:00 hez, 1206 ss [facility] 2022-04-15 2022-04-15 Outpatient Provider, SANDIE STEVE [id number] [facility] 03:25:00 03:25:00 Undefined 02 [facility] 2022-03-17 2022-03-17 Outpatient SFA SFA [id number] 022 Enoch 09:09:19 09:09:19 1115 F Martínez 2022-03-17 2022-03-17 Outpatient [id number]- [id number] yb915o-u 00:00:00 00:00:00 Visit j750-3300 106-4636-b -j5uy-939 5be-547ae2 jx946wvb6 86dad8 2022-03-04 2022-03-04 Outpatient SFA SFA [id number] 022 E[place]ch 13:56:07 13:56:07 1102 F Martínez 2022-03-04 2022-03-04 Outpatient [id number]- [id number] 7246be-9 00:00:00 00:00:00 Visit 9529-42f7 529-42f7-a -su04-fe2 c39-hm301c 57r5hw7d3 5cb7c5 2022-02-24 2022-02-24 [facility] [id number] 00:00:00 00:00:00 [facility] 2022-02-24 2022-02-24 Abstract Eufemia [facility] [id number] 00:00:00 00:00:00 [facility] 2022-02-17 2022-02-17 Outpatient SFA SFA 45420-5 022 E[place]ch 14:09:24 14:09:24 1018 F Martínez 2022-02-17 2022-02-17 Outpatient [id number]- [id number] ii891t-t 00:00:00 00:00:00 Visit m80c-60i7 39e-47c5-b -m5h7-6nd 8u8-5bxd3y s8t007197 898802 8608-10-04 2022-02-03 Outpatient SFA SFA 20961-4 022 [place] 13:41:10 13:41:10 1004 F Martínez 2022-02-03 2022-02-03 Outpatient [id number] 00:00:00 00:00:00 Visit 4378-45d4 378-45d4-b -kb2o-337 v0d-9429y7 4c10415iq 0427fc 2021-12-23 2021-12-23 [facility] [id number] [facility] 00:00:00 00:00:00 Community [facility] 350.1.13.10 it y of [place] 4.2.7.2.686 Tony as CAR?BLEA [phone] [address] MEDICAL OFFICE BUILDING 2021-12-04 2021-12-04 Outpatient [id number]- [id number] 00:00:00 00:00:00 Visit 15t5-3d44 9z3-8s83-4 -00z5-j7l 7d0-l3dmo8 ym6665h81 255c45 2021-12-02 2021-12-02 [facility] [id number] Univers 16:00:00 16:00:00 [facility] 2021-12-02 2021-12-02 [facility], Ang - Wander [place] 1.2.840.1 14 [id number] Univers 15:15:00 15:16:[address] [facility] 350.1.13.10 ity of [place] 4.2.7.2.686 Tony as CAR?BLEA [id number] [address] OFFICE BUILDING 2021-12-02 2021-12-02 [facility] [id number] Univers 14:30:00 14:57:05 [facility] 2021-12-02 2021-12-02 [facility] 1.2.840.114 [id number] Univers 14:30:00 14:57:05 Visit Community [facility] 350.1.13.10 it y of [place] 4.2.7.2.686 Tony as CAR?BLEA [id number] [facility] [address] MEDICAL OFFICE BUILDING 2021-12-02 2021-12-02 Outpatient [id number]- [id number] 00:00:00 00:00:00 Visit 8hw8-8692 db2-4873-a -e2g3-518 0i3-9180p9 6k44t37n8 1f79f2 2021-11-26 2021-11-26 Outpatient [facility] [id number] Univers 14:00:00 14:00:00 [facility] 2021-10-21 2021-10-21 Outpatient R [facility] [id number] Univers 14:30:00 14:30:00 [facility] 2021-07-29 2021-07-29 Telephone [facility] [id number] [id number] Univers 00:00:00 00:00:00 Community [facility] 350.1.13.10 [facility] 4.2.7.2.686 Tony as CAR?BLEA [id number] [address] MEDICAL OFFICE [facility] 2021-07-15 2021-07-15 Outpatient R [facility] [id number] Univers 09:30:00 10:12:40 [facility] 2021-07-15 2021-07-15 Office [facility] 1.2.840.114 [id number] Univers 09:30:00 10:12:40 Visit Community [facility] 350.1.13.10 [facility] 4.2.7.2.686 Tony as CAR?BLEA [id number] [address] MEDICAL OFFICE BUILDING 2021-03-06 2021-03-06 Hospital Radiology [place] 1.2.840.114 [id number] Univers 12:24:35 23:59:00 Encounter [place] 350.1.13.10 ity of [facility] 4.2.7.2.686 [place] [id number] [address] 2021-03-06 2021-03-06 Hospital Radiology [place] 1.2.840.114 [id number] Univers 12:23:40 12:23:40 Encounter BUDDY 350.1.13.10 ity of [place] 4.2.7.2.686 [facility] [id number] [facility] [address] 2021-03-06 2021-03-06 Outpatient R RADIOLOGY [facility] [id number] Univers 12:23:40 12:23:40 ity of [facility] 2021-03-06 2021-03-06 Outpatient R RADIOLOGY [facility] [id number] Univers 12:23:40 12:23:40 ity of [facility] 2021-02-27 2021-02-27 Outpatient R RADIOLOGY [facility] [id number] Univers 00:00:00 00:00:00 ity of [facility] 2021-02-27 2021-02-27 Outpatient R RADIOLOGY [facility] [id number] Univers 00:00:00 00:00:00 ity [facility] 2021-02-13 2021-02-13 Documentat Maikel [facility] [id number] [facility] 00:00:00 00:00:[address] [facility] 2021-02-03 2021-02-03 Orders Doctor BRIANNE 1.2.840.114 [id number] Univers 00:00:00 00:00:00 Only Unassigned, RONNY 350.1.13.10 ity of [place] [facility] 4.2.7.2.686 Tony [id number] [facility] [address] 2020-11-22 2020-11-22 Outpatient [facility] [id number] Univers 13:00:00 13:00:00 SAM ajithdave [facility] 2020-10-08 2020-10-08 Telephone [facility] 1.2.840.114 [id number] 00:00:00 00:00:00 Sam Doherty 350.1.13.10 [place] 4.2.7.2.686 Professio [id number] [address] 2020-10-07 2020-10-07 Orders Doctor BRIANNE 1.2.840.114 [id number] 00:00:00 00:00:00 Only UnassignedRONNY 350.1.13.10 [place] [facility] 4.2.7.2.686 [id number] 009 2020-10-04 2020-10-04 Outpatient Rayne RAMIRES, [facility] [id number] Univers 14:00:00 14:00:00 SAM ajithdave [facility] 2020-09-19 2020-09-19 Outpatient R BANDAR, [facility] [id number] Univers 11:00:00 11:00:00 DEAN jose [facility] 2020-09-10 2020-09-10 Outpatient R BANDAR, [facility] [id number] Univers 10:00:00 10:00:00 DEAN jose [facility] 2020-08-20 2020-08-20 Office Bandar, [place] 1.2.840.114 [id number] 13:15:09 13:42:21 Visit Dean Doherty 350.1.13.10 [place] 4.2.7.2.686 Tania [id number] [facility]9 [facility] [address] 2020-08-20 2020-08-20 Outpatient R BANDAR, [facility] [id number] Univers 13:20:00 13:20:00 DEAN jose [facility] 2019-12-14 2019-12-14 Outpatient [facility] [id number] [facility] 00:00:00 00:00:00 2019-11-14 2019-11-14 Outpatient NAKITA GIPSON, [facility] [id number] [facility] 00:00:00 00:00:00 HUNTER 2019-11-14 2019-11-14 Outpatient [facility] [id number] [facility] 00:00:00 00:00:00 2019-11-14 2019-11-14 Outpatient EL [facility] [id number] [facility] 00:00:00 00:00:00 2019-10-31 2019-10-31 Outpatient [facility] [id number] [facility] 00:00:00 00:00:00 2019-10-31 2019-10-31 Outpatient [facility] [id number] [facility] 00:00:00 00:00:00 2019-10-17 2019-10-17 Outpatient [facility]H [facility] [id number] [facility] 00:00:00 00:00:00 2019-10-17 2019-10-17 Outpatient [facility] [id number] [facility] 00:00:00 00:00:00 2019-07-13 2019-07-13 Outpatient [facility] [id number] 2-2 SLE 00:00:00 00:00:00 [id number] 2019-06-15 2019-06-15 Outpatient [facility] [id number] 2-2 SLE 00:00:00 00:00:00 [id number] Results Test Description Test Time Test Comments Results Result Comments Source HEMOGLOBIN A1c 2022-09-11 05:14:56 Test Item Value Reference Range Interpretation Comme nts HEMOGLOBIN A1c (test code = 5.9 % 4.2-5.6 H [employer] 71183) GUIDELINES FOR HGB A1C: PREDIABETES/INC REASED RISK [...] OTHERWISE INDIC ATED, ALL TESTING [facility]FORMED [facility] [place] [address] LABOR ATORY DIRECTOR: Chuckie NAVA MYKE NUMBER [id number] CAP ACCREDITATION N O. [id number] COMPREHENSIVE METABOLIC [id number] 05:50:10 Test Item Value Reference Range Interpretation Comments GLUCOSE (test code = 199 MG/DL 70-99 H 2216) BUN (test code = 53 MG/DL 6-20 H 2207) CREATININE (test 9.05 MG/DL 0.80-1.40 H code = 2214) eGFR (2020 CKD-EPI) 6 ML/MIN/1.73 >60 L (test code = 29094) CALC BUN/CREAT (test 6 RATIO 6-28 code = 2235) SODIUM (test code = 135 MEQ/L 250-289 1596) POTASSIUM (test code 4.3 MEQ/L 3.5-5.4 = 2228) CHLORIDE (test code 92 MEQ/L 95-107 L [...] [Automated message] (test code = 2207) The [employer] which generated this result transmitted ref erence range: <=1.2. T he reference range was not used to int erpret this result as normal/abnormal . ALKALINE PHOSPHATASE 90 U/L 40-123 (test code = 220) AST (test code = 20 U/L 9-50 2217) ALT (test code = 15 U/L 5-50 CPL pal s 2218) important patho logy staff changes effective 07/01. New patholo gy staff will prov lisa uninterrupted, excellent patie nt care and clinic al consultation. S ee URL: [email or web address]. UNLE SS OTHERWISE INDIC ATED, ALL TESTING PER FORMED AT [facility], [facility]. [address] [place] [address] CONNIE YOUSIF DIRECTOR: Chuckie CHILDRESS MYKE NUMBER [id number] CAP ACCREDITATION N O. [id number] TSH, THIRD [id number] 06:11:47 Test Item Value Reference Range Interpretation Comments TSH, THIRD >100.000 0.400-4.100 H CPL has GENERATION (test UIU/ML important p athology code = 2821) staff changes effective 07/01. New patholo gy staff will prov lisa uninterrupted, excellent patie nt care and clinic al consultation. S ee URL: [email or web address]. UNLE SS OTHERWISE INDIC ATED, ALL TESTING PER FORMED AT [facility]ICAL [facility] [employer], [facility]. [address] [facility] [place] [address] [facility] DIRECTOR: LATOYA MCCALL M.D. LOSIA NUMBER [id number] CAP ACCREDITATION N O. [id number] LIPID [id number] 03:11:34 Test Item Value Reference Range Interpretation [...] MOREINFORMATION , SEE CLIENT ANNOUNCE MENT AT [email or web address] RISK RATIO LDL/HDL 1.58 RATIO <3.55 (test code = 2238) TSH, THIRD [id number] 06:32:46 Test Item Value Reference Range Interpretation Comments TSH, THIRD GENERATION (test >100.000 UIU/ML 0.400-4.100 H code = 2821) PSA, [id number] 06:32:46 Test Item Value Reference Range Interpretation Comments PSA, TOTAL 0.57 NG/ML See_Comment NOTE: Methodol ogy is Ezio (test code = Radhika Electroch emiluminescence 2606) Immunoassay tra ceable to WHO reference stand rea 96/760. UNLESS OTHERWIS E INDICATED, ALL TESTING PERFORM ED ATCLINICAL PATHOLOGY [facility], [facility]. [address] [place] [address] LABORATORY DIRE CTOR: LATOYA MCCALL M.D. [place] NUMBER [id number] [place]. [id number] [A utomated message] The sy stem which generated this result transmitted ref erence range: <=4.00. The ref erence range was not used to int erpret this result as ryne l/abnormal. COMPREHENSIVE METABOLIC [id number] 04:57:27 Test Item Value Reference Range Interpretation Comments GLUCOSE (test code = 204 MG/DL 70-99 H 2216) BUN (test code = 17 MG/DL 6-20 2207) CREATININE (test 5.58 MG/DL 0.80-1.40 H code = 2213) eGFR (2020 CKD-EPI) 11 ML/MIN/1.73 >60 L (test code = 38221) CALC BUN/CREAT (test 3 RATIO 6-28 L code = 223) SODIUM (test code = 143 MEQ/L 262-709 3245) POTASSIUM (test code 3.8 MEQ/L 3.5-5.4 = 2227) CHLORIDE (test code 98 MEQ/L 95-107 = 2214) CARBON DIOXIDE (test 29 MEQ/L 19-31 code = 220) CALCIUM (test code = 8.7 MG/DL 8.5-10.5 2208) PROTEIN, TOTAL (test 7.0 G/DL 6.1-8.3 code = 2228) ALBUMIN (test code = 4.4 G/DL 3.5-5.2 2200) CALC GLOBULIN (test 2.6 G/DL 1.9-3.7 code = 224) CALC A/G RATIO (test 1.7 RATIO 1.0-2.6 code = 223) BILIRUBIN, TOTAL <0.2 MG/DL See_Comment [Automated message] [...] code = 15 U/L 5-50 2218) HEMOGLOBIN [id number] 03:24:27 Test Item Value Reference Range Interpretation Comments HEMOGLOBIN A1c (test code = 41950) 5.8 % 4.2-5.6 H CBC W/AUTO DIFF WITH [id number] 03:19:43 Test Item Value Reference Range Interpretation [...] RBCS 0.00 K/UL 0.00-0.11 (test code = 12862) CBC W/AUTO [id number] 00:00:00 Test Item Value Reference Range Interpretation [...] NUCLEATED RBCS (test code = 0.00 K/UL 15734) CBC W/AUTO [id number] 00:00:00 Test Item Value Reference Range Interpretation [...] NUCLEATED RBCS (test code = 0.00 K/UL 14285) CBC W/AUTO [id number] 00:00:00 Test Item Value Reference Range Interpretation [...] NUCLEATED RBCS (test code = 0.00 K/UL 04414) HEMOGLOBIN [id number] 00:00:00 Test Item Value Reference Range Interpretation Comments HEMOGLOBIN A1c (test code = 99524) 5.8 % HEMOGLOBIN [id number] 00:00:00 Test Item Value Reference Range Interpretation Comments HEMOGLOBIN A1c (test code = 67200) 5.8 % HEMOGLOBIN [id number] 00:00:00 Test Item Value Reference Range Interpretation Comments HEMOGLOBIN A1c (test code = 36942) 5.8 % COMPREHENSIVE METABOLIC [id number] 00:00:00 Test Item Value Reference Range Interpretation Comments GLUCOSE (test code = 2217) 204 MG/DL BUN (test code = 2208) 17 MG/DL CREATININE (test code = 2214) 5.58 MG/DL eGFR (2020 CKD-EPI) (test code 11 ML/MIN/1.73 = 62104) CALC BUN/CREAT (test code = 3 RATIO [...] code = 2219) 15 U/L COMPREHENSIVE METABOLIC [id number] 00:00:00 Test Item Value Reference Range Interpretation Comments GLUCOSE (test code = 2217) 204 MG/DL BUN (test code = 2208) 17 MG/DL CREATININE (test code = 2214) 5.58 MG/DL eGFR (2020 CKD-EPI) (test code 11 ML/MIN/1.73 = 51559) CALC BUN/CREAT (test code = 3 RATIO [...] code = 2219) 15 U/L TSH, THIRD [id number] 00:00:00 Test Item Value Reference Range Interpretation Comments TSH, THIRD GENERATION (test >100.000 UIU/ML code = 2821) TSH, THIRD [id number] 00:00:00 Test Item Value Reference Range Interpretation Comments TSH, THIRD GENERATION (test >100.000 UIU/ML code = 2821) TSH, THIRD [id number] 00:00:00 Test Item Value Reference Range Interpretation Comments TSH, THIRD GENERATION (test >100.000 UIU/ML code = 2821) PSA, [id number] 00:00:00 Test Item Value Reference Range Interpretation Comments PSA, TOTAL (test code = 2606) 0.57 NG/ML PSA, [id number] 00:00:00 Test Item Value Reference Range Interpretation Comments PSA, TOTAL (test code = 2606) 0.57 NG/ML PSA, [id number] 00:00:00 Test Item Value Reference Range Interpretation Comments PSA, TOTAL (test code = 2606) 0.57 NG/ML - CT ABD PELVIS W/O [id number] 17:19:00 [facility] 1965 Sex: M Name: MEHRDAD RAMIREZ [facility] : 1965 Age/S: 56 / M [address] Unit #:[id number] Loc: [place] [address] Phys: Jacinto Simpson MD Acct: [id number] Dis Date: Status: REG REF PHONE #: [phone] Exam Date: 04/16/2022 1708 FAX #: Reason: RESP FAILURE EXAMS: CPT: [id number] CT ABD PELVIS W/O CONT [address]11 CT abdomen and pelvis without contrast: HISTORY: [...] 1 Signed Report (CONTINUED) Name: MEHRDAD RAMIREZ [facility] : 1965 Age/S: 56 / M [address] Unit #: [id number] Loc: [place] [address] Phys: Jacinto Simpson MD Acct: [id number] Dis Date: Status: REG REF PHONE #: [phone] Exam Date: 04/16/2022 1705 FAX #: Reason: RESP FAILURE EXAMS: CPT: [id number] CT ABD PELVIS W/O CONT 73485 (Continued) evidence of ascites. Abdominal wall is [...] RT(R) CTDI: DLP: Trnscb Date/Time: 04/16/2022 (171) t.SDR.NB16 Orig Print D/T: S: 04/16/2022 (1729) PAGE 2 Signed ReportCBC W/AUTO [id number] 05:14:00 Test Item Value Reference Range Interpretation [...] NT WITH AUTO DIFFERENTI AL. BASIC METABOLIC [id number] 03:59:00 Test Item Value Reference Range Interpretation [...] maria del carmen for GFRby the N [facility] Kidney Foundati on for Adults.The GFR will not calculate i f the sex is unknown or if thepatient's ag e is <18 years. CREATININE (test 12.3 MG/DL 0.8-1.3 H code = CREAT) CALCIUM (test code 7.6 MG/DL 8.5-10.1 L = CA) CBC W/AUTO DIFF WITH [id number] 09:42:23 Test Item Value Reference Range Interpretation [...] RBCS 0.00 K/UL 0.00-0.11 (test code = 62097) HEMOGLOBIN [id number] 09:27:39 Test Item Value Reference Range Interpretation Comments HEMOGLOBIN A1c (test code = 62801) 6.2 % 4.2-5.6 H TSH, THIRD [id number] 06:43:39 Test Item Value Reference Range Interpretation Comments TSH, THIRD GENERATION (test 82.000 UIU/ML 0.400-4.100 H code = 2821) HIV 1/2 4TH GEN, RFLX [id number] 05:21:13 Test Item Value Reference Range Interpretation Comments HIV 1/2 4TH GEN, RFLX CONF (test NON-REACTIVE NON-REACTIVE code = 3514) HEPATITIS PANEL, [id number] 05:21:13 Test Item Value Reference Range Interpretation Comments HEPATITIS A IgM (test NON-REACTIVE NON-REACTIVE code = 59979) HEPATITIS B CORE IgM NON-REACTIVE NON-REACTIVE (test code = 4644) HEPATITIS B SURF AG NON-REACTIVE NON-REACTIVE (test code = 2739) HEPATITIS C ANTIBODY NON-REACTIVE NON-REACTIVE (test code = 4675) INTERPRETATION (NOTE) Hepatitis A HEPATITIS A: (test serology shows no code = 2552) evidence of acu te hepatitis A. INTERPRETATION (NOTE) Hepatitis B HEPATITIS B: (test serology shows no code = 08217) evidence of ac [place] hepatitis B and no indication of exposure to hepatitis B vir us in the previous si xto eight months. INTERPRETATION (NOTE) Hepatitis C HEPATITIS C: (test serology shows no code = 11663) evidence of ex posure to hepatitisC v irus at this time. I t can take up to 12 m onths after exposure tothe hepatitis C vir us for antibodies to become detectab le in the blood in ce rtain patients. UNLES S OTHERWISE INDIC ATED, ALL TESTING PERFORMED [facility], [place]. [address] [facility] [address] CONNIE CHRISTENSEN DIRECTOR: LATOYA MCCALL M.D. CLIA NUMBER [id number] [place] [id number] LIPID [id number] 03:30:59 Test Item Value Reference Range Interpretation [...] MOREINFORMATION , SEE CLIENT ANNOUNCE MENT AT [email or web address] CalcLDL-C RISK RATIO LDL/HDL (NOTE) RATIO <3.55 UNABLE TO CALCULATE (test code = 2238) COMPREHENSIVE METABOLIC [id number] 03:30:59 Test Item Value Reference Range Interpretation Comments GLUCOSE (test code = 117 MG/DL 70-99 H 2216) BUN (test code = 54 MG/DL 6-20 H 2207) CREATININE (test 11.27 MG/DL 0.80-1.40 H code = 2214) eGFR (2020 CKD-EPI) 5 ML/MIN/1.73 >60 L (test code = 51811) CALC BUN/CREAT (test 5 RATIO 6-28 L code = 2235) SODIUM (test code = 139 MEQ/L 646-714 9190) POTASSIUM (test code 4.2 MEQ/L 3.5-5.4 = [...] = 8 U/L 5-50 2218) CBC W/AUTO [id number] 00:00:00 Test Item Value Reference Range Interpretation [...] NUCLEATED RBCS (test code = 0.00 K/UL 70054) CBC W/AUTO [id number] 00:00:00 Test Item Value Reference Range Interpretation [...] NUCLEATED RBCS (test code = 0.00 K/UL 90144) CBC W/AUTO [id number] 00:00:00 Test Item Value Reference Range Interpretation [...] NUCLEATED RBCS (test code = 0.00 K/UL 17567) HEMOGLOBIN [id number] 00:00:00 Test Item Value Reference Range Interpretation Comments HEMOGLOBIN A1c (test code = 30218) 6.2 % HEMOGLOBIN [id number] 00:00:00 Test Item Value Reference Range Interpretation Comments HEMOGLOBIN A1c (test code = 36321) 6.2 % HEMOGLOBIN [id number] 00:00:00 Test Item Value Reference Range Interpretation Comments HEMOGLOBIN A1c (test code = 13461) 6.2 % LIPID [id number] 00:00:00 Test Item Value Reference Range Interpretation Comments CHOLESTEROL (test code = 2210) 196 MG/DL TRIGLYCERIDES (test code = 2232) 486 MG/DL HDL CHOLESTEROL (test code = 44 MG/DL 2220) CALC LDL CHOL (test code = 2237) (NOTE) MG/DL RISK RATIO LDL/HDL (test code = (NOTE) RATIO 2238) LIPID [id number] 00:00:00 Test Item Value Reference Range Interpretation Comments CHOLESTEROL (test code = 2210) 196 MG/DL TRIGLYCERIDES (test code = 2232) 486 MG/DL HDL CHOLESTEROL (test code = 44 MG/DL 0) CALC LDL CHOL (test code = 2237) (NOTE) MG/DL RISK RATIO LDL/HDL (test code = (NOTE) RATIO 2238) COMPREHENSIVE METABOLIC [id number] 00:00:00 Test Item Value Reference Range Interpretation Comments GLUCOSE (test code = 2217) 117 MG/DL BUN (test code = 2208) 54 MG/DL CREATININE (test code = 2214) 11.27 MG/DL eGFR (2020 CKD-EPI) (test code 5 ML/MIN/1.73 = 18905) CALC BUN/CREAT (test code = 5 RATIO [...] code = 2219) 8 U/L COMPREHENSIVE METABOLIC [id number] 00:00:00 Test Item Value Reference Range Interpretation Comments GLUCOSE (test code = 2217) 117 MG/DL BUN (test code = 2208) 54 MG/DL CREATININE (test code = 2214) 11.27 MG/DL eGFR (2020 CKD-EPI) (test code 5 ML/MIN/1.73 = 41045) CALC BUN/CREAT (test code = 5 RATIO [...] ALT (test code = 2219) 8 U/L [id number] 00:00:00 Test Item Value Reference Range Interpretation Comments TSH, THIRD GENERATION (test 82.000 UIU/ML code = 2821) [id number] 00:00:00 Test Item Value Reference Range Interpretation Comments TSH, THIRD GENERATION (test 82.000 UIU/ML code = 2821) [id number] 00:00:00 Test Item Value Reference Range Interpretation Comments TSH, THIRD GENERATION (test 82.000 UIU/ML code = 2821) HIV AB/AG COMBO RFLX [id number] 00:00:00 Test Item Value Reference Range Interpretation Comments HIV 1/2 4TH GEN, RFLX CONF (test NON-REACTIVE code = 3514) HIV AB/AG COMBO RFLX [id number] 00:00:00 Test Item Value Reference Range Interpretation Comments HIV 1/2 4TH GEN, RFLX CONF (test NON-REACTIVE code = 3514) ACUTE HEPATITIS [id number] 00:00:00 Test Item Value Reference Range Interpretation Comments HEPATITIS A IgM (test code = NON-REACTIVE 96888) HEPATITIS B CORE IgM (test code NON-REACTIVE = 4644) HEPATITIS B SURF AG (test code = NON-REACTIVE 2739) HEPATITIS C ANTIBODY (test code NON-REACTIVE = 4675) INTERPRETATION HEPATITIS A: (NOTE) (test code = 2552) INTERPRETATION HEPATITIS B: (NOTE) (test code = 48354) INTERPRETATION HEPATITIS C: (NOTE) (test code = 94236) ACUTE HEPATITIS [id number] 00:00:00 Test Item Value Reference Range Interpretation Comments HEPATITIS A IgM (test code = NON-REACTIVE 53572) HEPATITIS B CORE IgM (test code NON-REACTIVE = 4644) HEPATITIS B SURF AG (test code = NON-REACTIVE 2739) HEPATITIS C ANTIBODY (test code NON-REACTIVE = 4675) INTERPRETATION HEPATITIS A: (NOTE) (test code = 2552) INTERPRETATION HEPATITIS B: (NOTE) (test code = 13460) INTERPRETATION HEPATITIS C: (NOTE) (test code = 93070) CBC W/AUTO [id number] 00:00:00 Test Item Value Reference Range Interpretation [...] NUCLEATED RBCS (test code = 0.00 K/UL 33845) CBC W/AUTO [id number] 00:00:00 Test Item Value Reference Range Interpretation [...] NUCLEATED RBCS (test code = 0.00 K/UL 81479) CBC W/AUTO [id number] 00:00:00 Test Item Value Reference Range Interpretation [...] NUCLEATED RBCS (test code = 0.00 K/UL 88732) HEMOGLOBIN [id number] 00:00:00 Test Item Value Reference Range Interpretation Comments HEMOGLOBIN A1c (test code = 10756) 6.2 % HEMOGLOBIN [id number] 00:00:00 Test Item Value Reference Range Interpretation Comments HEMOGLOBIN A1c (test code = 83234) 6.2 % HEMOGLOBIN [id number] 00:00:00 Test Item Value Reference Range Interpretation Comments HEMOGLOBIN A1c (test code = 33751) 6.2 % LIPID [id number] 00:00:00 Test Item Value Reference Range Interpretation Comments CHOLESTEROL (test code = 2210) 196 MG/DL TRIGLYCERIDES (test code = 2232) 486 MG/DL HDL CHOLESTEROL (test code = 44 MG/DL 2220) CALC LDL CHOL (test code = 2237) (NOTE) MG/DL RISK RATIO LDL/HDL (test code = (NOTE) RATIO 2238) LIPID [id number] 00:00:00 Test Item Value Reference Range Interpretation Comments CHOLESTEROL (test code = 2210) 196 MG/DL TRIGLYCERIDES (test code = 2232) 486 MG/DL HDL CHOLESTEROL (test code = 44 MG/DL 2220) CALC LDL CHOL (test code = 2237) (NOTE) MG/DL RISK RATIO LDL/HDL (test code = (NOTE) RATIO 2238) COMPREHENSIVE METABOLIC [id number] 00:00:00 Test Item Value Reference Range Interpretation Comments GLUCOSE (test code = 2217) 117 MG/DL BUN (test code = 2208) 54 MG/DL CREATININE (test code = 2214) 11.27 MG/DL eGFR (2020 CKD-EPI) (test code 5 ML/MIN/1.73 = 33237) CALC BUN/CREAT (test code = 5 RATIO [...] code = 2219) 8 U/L COMPREHENSIVE METABOLIC [id number] 00:00:00 Test Item Value Reference Range Interpretation Comments GLUCOSE (test code = 2217) 117 MG/DL BUN (test code = 2208) 54 MG/DL CREATININE (test code = 2214) 11.27 MG/DL eGFR (2020 CKD-EPI) (test code 5 ML/MIN/1.73 = 90329) CALC BUN/CREAT (test code = 5 RATIO [...] ALT (test code = 2219) 8 U/L [id number] 00:00:00 Test Item Value Reference Range Interpretation Comments TSH, THIRD GENERATION (test 82.000 UIU/ML code = 2821) [id number] 00:00:00 Test Item Value Reference Range Interpretation Comments TSH, THIRD GENERATION (test 82.000 UIU/ML code = 2821) [id number] 00:00:00 Test Item Value Reference Range Interpretation Comments TSH, THIRD GENERATION (test 82.000 UIU/ML code = 2821) HIV AB/AG COMBO RFLX [id number] 00:00:00 Test Item Value Reference Range Interpretation Comments HIV 1/2 4TH GEN, RFLX CONF (test NON-REACTIVE code = 3514) HIV AB/AG COMBO RFLX [id number] 00:00:00 Test Item Value Reference Range Interpretation Comments HIV 1/2 4TH GEN, RFLX CONF (test NON-REACTIVE code = 3514) ACUTE HEPATITIS [id number] 00:00:00 Test Item Value Reference Range Interpretation Comments HEPATITIS A IgM (test code = NON-REACTIVE 95814) HEPATITIS B CORE IgM (test code NON-REACTIVE = 4644) HEPATITIS B SURF AG (test code = NON-REACTIVE 2739) HEPATITIS C ANTIBODY (test code NON-REACTIVE = 4675) INTERPRETATION HEPATITIS A: (NOTE) (test code = 2552) INTERPRETATION HEPATITIS B: (NOTE) (test code = 31362) INTERPRETATION HEPATITIS C: (NOTE) (test code = 64566) ACUTE HEPATITIS [id number] 00:00:00 Test Item Value Reference Range Interpretation Comments HEPATITIS A IgM (test code = NON-REACTIVE 01271) HEPATITIS B CORE IgM (test code NON-REACTIVE = 4644) HEPATITIS B SURF AG (test code = NON-REACTIVE 2739) HEPATITIS C ANTIBODY (test code NON-REACTIVE = 4675) INTERPRETATION HEPATITIS A: (NOTE) (test code = 2552) INTERPRETATION HEPATITIS B: (NOTE) (test code = 00562) INTERPRETATION HEPATITIS C: (NOTE) (test code = 16633) CBC W/AUTO [id number] 00:00:00 Test Item Value Reference Range Interpretation [...] NUCLEATED RBCS (test code = 0.00 K/UL 33747) CBC W/AUTO [id number] 00:00:00 Test Item Value Reference Range Interpretation [...] NUCLEATED RBCS (test code = 0.00 K/UL 85442) CBC W/AUTO [id number] 00:00:00 Test Item Value Reference Range Interpretation [...] NUCLEATED RBCS (test code = 0.00 K/UL 59631) CBC W/AUTO [id number] 00:00:00 Test Item Value Reference Range Interpretation [...] NUCLEATED RBCS (test code = 0.00 K/UL 27420) CBC W/AUTO [id number] 00:00:00 Test Item Value Reference Range Interpretation [...] NUCLEATED RBCS (test code = 0.00 K/UL 30840) HEMOGLOBIN [id number] 00:00:00 Test Item Value Reference Range Interpretation Comments HEMOGLOBIN A1c (test code = 07497) 6.2 % HEMOGLOBIN [id number] 00:00:00 Test Item Value Reference Range Interpretation Comments HEMOGLOBIN A1c (test code = 99626) 6.2 % HEMOGLOBIN [id number] 00:00:00 Test Item Value Reference Range Interpretation Comments HEMOGLOBIN A1c (test code = 71105) 6.2 % LIPID [id number] 00:00:00 Test Item Value Reference Range Interpretation Comments CHOLESTEROL (test code = 2210) 196 MG/DL TRIGLYCERIDES (test code = 2232) 486 MG/DL HDL CHOLESTEROL (test code = 44 MG/DL 2220) CALC LDL CHOL (test code = 2237) (NOTE) MG/DL RISK RATIO LDL/HDL (test code = (NOTE) RATIO 2238) LIPID [id number] 00:00:00 Test Item Value Reference Range Interpretation Comments CHOLESTEROL (test code = 2210) 196 MG/DL TRIGLYCERIDES (test code = 2232) 486 MG/DL HDL CHOLESTEROL (test code = 44 MG/DL 2220) CALC LDL CHOL (test code = 2237) (NOTE) MG/DL RISK RATIO LDL/HDL (test code = (NOTE) RATIO 2238) COMPREHENSIVE METABOLIC [id number] 00:00:00 Test Item Value Reference Range Interpretation Comments GLUCOSE (test code = 2217) 117 MG/DL BUN (test code = 2208) 54 MG/DL CREATININE (test code = 2214) 11.27 MG/DL eGFR (2020 CKD-EPI) (test code 5 ML/MIN/1.73 = 09937) CALC BUN/CREAT (test code = 5 RATIO [...] code = 2219) 8 U/L COMPREHENSIVE METABOLIC [id number] 00:00:00 Test Item Value Reference Range Interpretation Comments GLUCOSE (test code = 2217) 117 MG/DL BUN (test code = 2208) 54 MG/DL CREATININE (test code = 2214) 11.27 MG/DL eGFR (2020 CKD-EPI) (test code 5 ML/MIN/1.73 = 29600) CALC BUN/CREAT (test code = 5 RATIO [...] ALT (test code = 2219) 8 U/L [id number] 00:00:00 Test Item Value Reference Range Interpretation Comments TSH, THIRD GENERATION (test 82.000 UIU/ML code = 2821) [id number] 00:00:00 Test Item Value Reference Range Interpretation Comments TSH, THIRD GENERATION (test 82.000 UIU/ML code = 2821) [id number] 00:00:00 Test Item Value Reference Range Interpretation Comments TSH, THIRD GENERATION (test 82.000 UIU/ML code = 2821) HIV AB/AG COMBO RFLX [id number] 00:00:00 Test Item Value Reference Range Interpretation Comments HIV 1/2 4TH GEN, RFLX CONF (test NON-REACTIVE code = 3514) HIV AB/AG COMBO RFLX [id number] 00:00:00 Test Item Value Reference Range Interpretation Comments HIV 1/2 4TH GEN, RFLX CONF (test NON-REACTIVE code = 3514) ACUTE HEPATITIS [id number] 00:00:00 Test Item Value Reference Range Interpretation Comments HEPATITIS A IgM (test code = NON-REACTIVE 64448) HEPATITIS B CORE IgM (test code NON-REACTIVE = 4644) HEPATITIS B SURF AG (test code = NON-REACTIVE 2739) HEPATITIS C ANTIBODY (test code NON-REACTIVE = 4675) INTERPRETATION HEPATITIS A: (NOTE) (test code = 2552) INTERPRETATION HEPATITIS B: (NOTE) (test code = 54594) INTERPRETATION HEPATITIS C: (NOTE) (test code = 90876) ACUTE HEPATITIS [id number] 00:00:00 Test Item Value Reference Range Interpretation Comments HEPATITIS A IgM (test code = NON-REACTIVE 73279) HEPATITIS B CORE IgM (test code NON-REACTIVE = 4644) HEPATITIS B SURF AG (test code = NON-REACTIVE 2739) HEPATITIS C ANTIBODY (test code NON-REACTIVE = 4675) INTERPRETATION HEPATITIS A: (NOTE) (test code = 2552) INTERPRETATION HEPATITIS B: (NOTE) (test code = 75735) INTERPRETATION HEPATITIS C: (NOTE) (test code = 07641) HEMOGLOBIN [id number] 00:00:00 Test Item Value Reference Range Interpretation Comments HEMOGLOBIN A1c (test code = 10584) 6.2 % HEMOGLOBIN [id number] 00:00:00 Test Item Value Reference Range Interpretation Comments HEMOGLOBIN A1c (test code = 64591) 6.2 % LIPID [id number] 00:00:00 Test Item Value Reference Range Interpretation Comments CHOLESTEROL (test code = 2210) 196 MG/DL TRIGLYCERIDES (test code = 2232) 486 MG/DL HDL CHOLESTEROL (test code = 44 MG/DL 2220) CALC LDL CHOL (test code = 2237) (NOTE) MG/DL RISK RATIO LDL/HDL (test code = (NOTE) RATIO 2238) COMPREHENSIVE METABOLIC [id number] 00:00:00 Test Item Value Reference Range Interpretation Comments GLUCOSE (test code = 2217) 117 MG/DL BUN (test code = 2208) 54 MG/DL CREATININE (test code = 2214) 11.27 MG/DL eGFR (2020 CKD-EPI) (test code 5 ML/MIN/1.73 = 87927) CALC BUN/CREAT (test code = 5 RATIO [...] code = 2219) 8 U/L CBC W/AUTO [id number] 00:00:00 Test Item Value Reference Range Interpretation [...] NUCLEATED RBCS (test code = 0.00 K/UL 71970) CBC W/AUTO [id number] 00:00:00 Test Item Value Reference Range Interpretation [...] NUCLEATED RBCS (test code = 0.00 K/UL 86911) CBC W/AUTO [id number] 00:00:00 Test Item Value Reference Range Interpretation [...] NUCLEATED RBCS (test code = 0.00 K/UL 75651) [id number] 00:00:00 Test Item Value Reference Range Interpretation Comments TSH, THIRD GENERATION (test 82.000 UIU/ML code = 2821) HEMOGLOBIN [id number] 00:00:00 Test Item Value Reference Range Interpretation Comments HEMOGLOBIN A1c (test code = 19588) 6.2 % HEMOGLOBIN [id number] 00:00:00 Test Item Value Reference Range Interpretation Comments HEMOGLOBIN A1c (test code = 82263) 6.2 % [id number] 00:00:00 Test Item Value Reference Range Interpretation Comments TSH, THIRD GENERATION (test 82.000 UIU/ML code = 2821) HEMOGLOBIN [id number] 00:00:00 Test Item Value Reference Range Interpretation Comments HEMOGLOBIN A1c (test code = 65646) 6.2 % HIV AB/AG COMBO RFLX [id number] 00:00:00 Test Item Value Reference Range Interpretation Comments HIV 1/2 4TH GEN, RFLX CONF (test NON-REACTIVE code = 3514) LIPID [id number] 00:00:00 Test Item Value Reference Range Interpretation Comments CHOLESTEROL (test code = 2210) 196 MG/DL TRIGLYCERIDES (test code = 2232) 486 MG/DL HDL CHOLESTEROL (test code = 44 MG/DL 2220) CALC LDL CHOL (test code = 2237) (NOTE) MG/DL RISK RATIO LDL/HDL (test code = (NOTE) RATIO 2238) LIPID [id number] 00:00:00 Test Item Value Reference Range Interpretation Comments CHOLESTEROL (test code = 2210) 196 MG/DL TRIGLYCERIDES (test code = 2232) 486 MG/DL HDL CHOLESTEROL (test code = 44 MG/DL 2220) CALC LDL CHOL (test code = 2237) (NOTE) MG/DL RISK RATIO LDL/HDL (test code = (NOTE) RATIO 2238) ACUTE HEPATITIS [id number] 00:00:00 Test Item Value Reference Range Interpretation Comments HEPATITIS A IgM (test code = NON-REACTIVE 36805) HEPATITIS B CORE IgM (test code NON-REACTIVE = 4692) HEPATITIS B SURF AG (test code = NON-REACTIVE 6255) HEPATITIS C ANTIBODY (test code NON-REACTIVE = 4643) INTERPRETATION HEPATITIS A: (NOTE) (test code = 2552) INTERPRETATION HEPATITIS B: (NOTE) (test code = 76148) INTERPRETATION HEPATITIS C: (NOTE) (test code = 25880) COMPREHENSIVE METABOLIC [id number] 00:00:00 Test Item Value Reference Range Interpretation Comments GLUCOSE (test code = 2217) 117 MG/DL BUN (test code = 2208) 54 MG/DL CREATININE (test code = 2214) 11.27 MG/DL eGFR (2020 CKD-EPI) (test code 5 ML/MIN/1.73 = 18861) CALC BUN/CREAT (test code = 5 RATIO [...] code = 2219) 8 U/L COMPREHENSIVE METABOLIC [id number] 00:00:00 Test Item Value Reference Range Interpretation Comments GLUCOSE (test code = 2217) 117 MG/DL BUN (test code = 2208) 54 MG/DL CREATININE (test code = 2214) 11.27 MG/DL eGFR (2020 CKD-EPI) (test code 5 ML/MIN/1.73 = 36789) CALC BUN/CREAT (test code = 5 RATIO [...] ALT (test code = 2219) 8 U/L [id number] 00:00:00 Test Item Value Reference Range Interpretation Comments TSH, THIRD GENERATION (test 82.000 UIU/ML code = 2821) [id number] 00:00:00 Test Item Value Reference Range Interpretation Comments TSH, THIRD GENERATION (test 82.000 UIU/ML code = 2821) [id number] 00:00:00 Test Item Value Reference Range Interpretation Comments TSH, THIRD GENERATION (test 82.000 UIU/ML code = 2821) HIV AB/AG COMBO RFLX [id number] 00:00:00 Test Item Value Reference Range Interpretation Comments HIV 1/2 4TH GEN, RFLX CONF (test NON-REACTIVE code = 3514) HIV AB/AG COMBO RFLX [id number] 00:00:00 Test Item Value Reference Range Interpretation Comments HIV 1/2 4TH GEN, RFLX CONF (test NON-REACTIVE code = 3514) ACUTE HEPATITIS [id number] 00:00:00 Test Item Value Reference Range Interpretation Comments HEPATITIS A IgM (test code = NON-REACTIVE 91413) HEPATITIS B CORE IgM (test code NON-REACTIVE = 4644) HEPATITIS B SURF AG (test code = NON-REACTIVE 2739) HEPATITIS C ANTIBODY (test code NON-REACTIVE = 4675) INTERPRETATION HEPATITIS A: (NOTE) (test code = 2552) INTERPRETATION HEPATITIS B: (NOTE) (test code = 41591) INTERPRETATION HEPATITIS C: (NOTE) (test code = 36093) ACUTE HEPATITIS [id number] 00:00:00 Test Item Value Reference Range Interpretation Comments HEPATITIS A IgM (test code = NON-REACTIVE 66674) HEPATITIS B CORE IgM (test code NON-REACTIVE = 4644) HEPATITIS B SURF AG (test code = NON-REACTIVE 2739) HEPATITIS C ANTIBODY (test code NON-REACTIVE = 4675) INTERPRETATION HEPATITIS A: (NOTE) (test code = 2552) INTERPRETATION HEPATITIS B: (NOTE) (test code = 45444) INTERPRETATION HEPATITIS C: (NOTE) (test code = 02254) CBC W/AUTO [id number] 00:00:00 Test Item Value Reference Range Interpretation [...] NUCLEATED RBCS (test code = 0.00 K/UL 78223) CBC W/AUTO [id number] 00:00:00 Test Item Value Reference Range Interpretation [...] NUCLEATED RBCS (test code = 0.00 K/UL 47689) CBC W/AUTO [id number] 00:00:00 Test Item Value Reference Range Interpretation [...] NUCLEATED RBCS (test code = 0.00 K/UL 28158) HEMOGLOBIN [id number] 00:00:00 Test Item Value Reference Range Interpretation Comments HEMOGLOBIN A1c (test code = 04537) 6.2 % HEMOGLOBIN [id number] 00:00:00 Test Item Value Reference Range Interpretation Comments HEMOGLOBIN A1c (test code = 78349) 6.2 % HEMOGLOBIN [id number] 00:00:00 Test Item Value Reference Range Interpretation Comments HEMOGLOBIN A1c (test code = 00436) 6.2 % LIPID [id number] 00:00:00 Test Item Value Reference Range Interpretation Comments CHOLESTEROL (test code = 2210) 196 MG/DL TRIGLYCERIDES (test code = 2232) 486 MG/DL HDL CHOLESTEROL (test code = 44 MG/DL 2220) CALC LDL CHOL (test code = 2237) (NOTE) MG/DL RISK RATIO LDL/HDL (test code = (NOTE) RATIO 2238) LIPID [id number] 00:00:00 Test Item Value Reference Range Interpretation Comments CHOLESTEROL (test code = 2210) 196 MG/DL TRIGLYCERIDES (test code = 2232) 486 MG/DL HDL CHOLESTEROL (test code = 44 MG/DL 2220) CALC LDL CHOL (test code = 2237) (NOTE) MG/DL RISK RATIO LDL/HDL (test code = (NOTE) RATIO 2238) COMPREHENSIVE METABOLIC [id number] 00:00:00 Test Item Value Reference Range Interpretation Comments GLUCOSE (test code = 2217) 117 MG/DL BUN (test code = 2208) 54 MG/DL CREATININE (test code = 2214) 11.27 MG/DL eGFR (2020 CKD-EPI) (test code 5 ML/MIN/1.73 = 75778) CALC BUN/CREAT (test code = 5 RATIO [...] code = 2219) 8 U/L COMPREHENSIVE METABOLIC [id number] 00:00:00 Test Item Value Reference Range Interpretation Comments GLUCOSE (test code = 2217) 117 MG/DL BUN (test code = 2208) 54 MG/DL CREATININE (test code = 2214) 11.27 MG/DL eGFR (2020 CKD-EPI) (test code 5 ML/MIN/1.73 = 66783) CALC BUN/CREAT (test code = 5 RATIO [...] ALT (test code = 2219) 8 U/L [id number] 00:00:00 Test Item Value Reference Range Interpretation Comments TSH, THIRD GENERATION (test 82.000 UIU/ML code = 2821) [id number] 00:00:00 Test Item Value Reference Range Interpretation Comments TSH, THIRD GENERATION (test 82.000 UIU/ML code = 2821) [id number] 00:00:00 Test Item Value Reference Range Interpretation Comments TSH, THIRD GENERATION (test 82.000 UIU/ML code = 2821) HIV AB/AG COMBO RFLX [id number] 00:00:00 Test Item Value Reference Range Interpretation Comments HIV 1/2 4TH GEN, RFLX CONF (test NON-REACTIVE code = 3514) HIV AB/AG COMBO RFLX [id number] 00:00:00 Test Item Value Reference Range Interpretation Comments HIV 1/2 4TH GEN, RFLX CONF (test NON-REACTIVE code = 3514) ACUTE HEPATITIS [id number] 00:00:00 Test Item Value Reference Range Interpretation Comments HEPATITIS A IgM (test code = NON-REACTIVE 10833) HEPATITIS B CORE IgM (test code NON-REACTIVE = 4644) HEPATITIS B SURF AG (test code = NON-REACTIVE 2739) HEPATITIS C ANTIBODY (test code NON-REACTIVE = 4675) INTERPRETATION HEPATITIS A: (NOTE) (test code = 2552) INTERPRETATION HEPATITIS B: (NOTE) (test code = 69459) INTERPRETATION HEPATITIS C: (NOTE) (test code = 21675) ACUTE HEPATITIS [id number] 00:00:00 Test Item Value Reference Range Interpretation Comments HEPATITIS A IgM (test code = NON-REACTIVE 65864) HEPATITIS B CORE IgM (test code NON-REACTIVE = 4644) HEPATITIS B SURF AG (test code = NON-REACTIVE 2739) HEPATITIS C ANTIBODY (test code NON-REACTIVE = 4675) INTERPRETATION HEPATITIS A: (NOTE) (test code = 2552) INTERPRETATION HEPATITIS B: (NOTE) (test code = 51421) INTERPRETATION HEPATITIS C: (NOTE) (test code = 66052) CBC W/AUTO [id number] 00:00:00 Test Item Value Reference Range Interpretation [...] NUCLEATED RBCS (test code = 0.00 K/UL 36330) CBC W/AUTO [id number] 00:00:00 Test Item Value Reference Range Interpretation [...] NUCLEATED RBCS (test code = 0.00 K/UL 31766) CBC W/AUTO [id number] 00:00:00 Test Item Value Reference Range Interpretation [...] NUCLEATED RBCS (test code = 0.00 K/UL 14275) HEMOGLOBIN [id number] 00:00:00 Test Item Value Reference Range Interpretation Comments HEMOGLOBIN A1c (test code = 61371) 6.2 % HEMOGLOBIN [id number] 00:00:00 Test Item Value Reference Range Interpretation Comments HEMOGLOBIN A1c (test code = 14629) 6.2 % HEMOGLOBIN [id number] 00:00:00 Test Item Value Reference Range Interpretation Comments HEMOGLOBIN A1c (test code = 68166) 6.2 % LIPID [id number] 00:00:00 Test Item Value Reference Range Interpretation Comments CHOLESTEROL (test code = 2210) 196 MG/DL TRIGLYCERIDES (test code = 2232) 486 MG/DL HDL CHOLESTEROL (test code = 44 MG/DL 2220) CALC LDL CHOL (test code = 2237) (NOTE) MG/DL RISK RATIO LDL/HDL (test code = (NOTE) RATIO 2238) LIPID [id number] 00:00:00 Test Item Value Reference Range Interpretation Comments CHOLESTEROL (test code = 2210) 196 MG/DL TRIGLYCERIDES (test code = 2232) 486 MG/DL HDL CHOLESTEROL (test code = 44 MG/DL 2220) CALC LDL CHOL (test code = 2237) (NOTE) MG/DL RISK RATIO LDL/HDL (test code = (NOTE) RATIO 2238) COMPREHENSIVE METABOLIC [id number] 00:00:00 Test Item Value Reference Range Interpretation Comments GLUCOSE (test code = 2217) 117 MG/DL BUN (test code = 2208) 54 MG/DL CREATININE (test code = 2214) 11.27 MG/DL eGFR (2020 CKD-EPI) (test code 5 ML/MIN/1.73 = 76254) CALC BUN/CREAT (test code = 5 RATIO [...] code = 2219) 8 U/L COMPREHENSIVE METABOLIC [id number] 00:00:00 Test Item Value Reference Range Interpretation Comments GLUCOSE (test code = 2217) 117 MG/DL BUN (test code = 2208) 54 MG/DL CREATININE (test code = 2214) 11.27 MG/DL eGFR (2020 CKD-EPI) (test code 5 ML/MIN/1.73 = 45737) CALC BUN/CREAT (test code = 5 RATIO [...] ALKALINE PHOSPHATASE (test code 70 U/L = 4) AST (test code = 2218) 6 U/L ALT (test code = 2219) 8 U/L [id number] 00:00:00 Test Item Value Reference Range Interpretation Comments TSH, THIRD GENERATION (test 82.000 UIU/ML code = 2821) [id number] 00:00:00 Test Item Value Reference Range Interpretation Comments TSH, THIRD GENERATION (test 82.000 UIU/ML code = 2821) [id number] 00:00:00 Test Item Value Reference Range Interpretation Comments TSH, THIRD GENERATION (test 82.000 UIU/ML code = 2821) HIV AB/AG COMBO RFLX [id number] 00:00:00 Test Item Value Reference Range Interpretation Comments HIV 1/2 4TH GEN, RFLX CONF (test NON-REACTIVE code = 3514) HIV AB/AG COMBO RFLX [id number] 00:00:00 Test Item Value Reference Range Interpretation Comments HIV 1/2 4TH GEN, RFLX CONF (test NON-REACTIVE code = 3514) ACUTE HEPATITIS [id number] 00:00:00 Test Item Value Reference Range Interpretation Comments HEPATITIS A IgM (test code = NON-REACTIVE 70970) HEPATITIS B CORE IgM (test code NON-REACTIVE = 4644) HEPATITIS B SURF AG (test code = NON-REACTIVE 2739) HEPATITIS C ANTIBODY (test code NON-REACTIVE = 4675) INTERPRETATION HEPATITIS A: (NOTE) (test code = 2552) INTERPRETATION HEPATITIS B: (NOTE) (test code = 23545) INTERPRETATION HEPATITIS C: (NOTE) (test code = 95849) ACUTE HEPATITIS [id number] 00:00:00 Test Item Value Reference Range Interpretation Comments HEPATITIS A IgM (test code = NON-REACTIVE 74197) HEPATITIS B CORE IgM (test code NON-REACTIVE = 4644) HEPATITIS B SURF AG (test code = NON-REACTIVE 2739) HEPATITIS C ANTIBODY (test code NON-REACTIVE = 4675) INTERPRETATION HEPATITIS A: (NOTE) (test code = 2552) INTERPRETATION HEPATITIS B: (NOTE) (test code = 71516) INTERPRETATION HEPATITIS C: (NOTE) (test code = 71414) CBC W/AUTO [id number] 00:00:00 Test Item Value Reference Range Interpretation [...] NUCLEATED RBCS (test code = 0.00 K/UL 29214) CBC W/AUTO [id number] 00:00:00 Test Item Value Reference Range Interpretation [...] NUCLEATED RBCS (test code = 0.00 K/UL 63102) CBC W/AUTO [id number] 00:00:00 Test Item Value Reference Range Interpretation [...] NUCLEATED RBCS (test code = 0.00 K/UL 29329) HEMOGLOBIN [id number] 00:00:00 Test Item Value Reference Range Interpretation Comments HEMOGLOBIN A1c (test code = 37654) 6.2 % HEMOGLOBIN [id number] 00:00:00 Test Item Value Reference Range Interpretation Comments HEMOGLOBIN A1c (test code = 25716) 6.2 % HEMOGLOBIN [id number] 00:00:00 Test Item Value Reference Range Interpretation Comments HEMOGLOBIN A1c (test code = 85340) 6.2 % LIPID [id number] 00:00:00 Test Item Value Reference Range Interpretation Comments CHOLESTEROL (test code = 2210) 196 MG/DL TRIGLYCERIDES (test code = 2232) 486 MG/DL HDL CHOLESTEROL (test code = 44 MG/DL 2220) CALC LDL CHOL (test code = 2237) (NOTE) MG/DL RISK RATIO LDL/HDL (test code = (NOTE) RATIO 2238) LIPID [id number] 00:00:00 Test Item Value Reference Range Interpretation Comments CHOLESTEROL (test code = 2210) 196 MG/DL TRIGLYCERIDES (test code = 2232) 486 MG/DL HDL CHOLESTEROL (test code = 44 MG/DL 0) CALC LDL CHOL (test code = 2237) (NOTE) MG/DL RISK RATIO LDL/HDL (test code = (NOTE) RATIO 2238) COMPREHENSIVE METABOLIC [id number] 00:00:00 Test Item Value Reference Range Interpretation Comments GLUCOSE (test code = 2217) 117 MG/DL BUN (test code = 2208) 54 MG/DL CREATININE (test code = 2214) 11.27 MG/DL eGFR (2020 CKD-EPI) (test code 5 ML/MIN/1.73 = 10018) CALC BUN/CREAT (test code = 5 RATIO [...] code = 2219) 8 U/L COMPREHENSIVE METABOLIC [id number] 00:00:00 Test Item Value Reference Range Interpretation Comments GLUCOSE (test code = 2217) 117 MG/DL BUN (test code = 2208) 54 MG/DL CREATININE (test code = 2214) 11.27 MG/DL eGFR (2020 CKD-EPI) (test code 5 ML/MIN/1.73 = 18520) CALC BUN/CREAT (test code = 5 RATIO [...] ALT (test code = 2219) 8 U/L [id number] 00:00:00 Test Item Value Reference Range Interpretation Comments TSH, THIRD GENERATION (test 82.000 UIU/ML code = 2821) [id number] 00:00:00 Test Item Value Reference Range Interpretation Comments TSH, THIRD GENERATION (test 82.000 UIU/ML code = 2821) [id number] 00:00:00 Test Item Value Reference Range Interpretation Comments TSH, THIRD GENERATION (test 82.000 UIU/ML code = 2821) HIV AB/AG COMBO RFLX [id number] 00:00:00 Test Item Value Reference Range Interpretation Comments HIV 1/2 4TH GEN, RFLX CONF (test NON-REACTIVE code = 3514) HIV AB/AG COMBO RFLX [id number] 00:00:00 Test Item Value Reference Range Interpretation Comments HIV 1/2 4TH GEN, RFLX CONF (test NON-REACTIVE code = 3514) ACUTE HEPATITIS [id number] 00:00:00 Test Item Value Reference Range Interpretation Comments HEPATITIS A IgM (test code = NON-REACTIVE 87206) HEPATITIS B CORE IgM (test code NON-REACTIVE = 4644) HEPATITIS B SURF AG (test code = NON-REACTIVE 2739) HEPATITIS C ANTIBODY (test code NON-REACTIVE = 4675) INTERPRETATION HEPATITIS A: (NOTE) (test code = 2552) INTERPRETATION HEPATITIS B: (NOTE) (test code = 66585) INTERPRETATION HEPATITIS C: (NOTE) (test code = 53306) ACUTE HEPATITIS [id number] 00:00:00 Test Item Value Reference Range Interpretation Comments HEPATITIS A IgM (test code = NON-REACTIVE 67172) HEPATITIS B CORE IgM (test code NON-REACTIVE = 4644) HEPATITIS B SURF AG (test code = NON-REACTIVE 2739) HEPATITIS C ANTIBODY (test code NON-REACTIVE = 4675) INTERPRETATION HEPATITIS A: (NOTE) (test code = 2552) INTERPRETATION HEPATITIS B: (NOTE) (test code = 13409) INTERPRETATION HEPATITIS C: (NOTE) (test code = 32812) TSH, THIRD [id number] 05:58:13 Test Item Value Reference Range Interpretation Comments TSH, THIRD 33.700 UIU/ML 0.400-4.100 H UNLESS OTHERW ISE GENERATION (test INDICATED, ALL code = 2821) TESTING PERFORM ED ATCLINICAL PATH [facility], [facility] [address] [place] [id number] [place] [address] DIRECTOR: LATOYA MCCALL M.D. CLIA NUMBER [id number] CAP ACCREDITATION N O. [id number] HEMOGLOBIN [id number] 02:44:08 Test Item Value Reference Range Interpretation Comments HEMOGLOBIN A1c (test 7.0 % 4.2-5.6 H AMERIC AN DIABETES code = 18062) ASSOCIATION [employer] FOR HGB A1C: PREDIABETES/INC REASED [...] Interpretation Comments HEMOGLOBIN A1c (test code = 06680) 7.0 % HEMOGLOBIN A1c [ADDED]2021-05-16 00:00:00 Test Item Value Reference Range Interpretation Comments HEMOGLOBIN A1c (test code = 29365) 7.0 % HEMOGLOBIN A1c [ADDED]2021-05-16 00:00:00 Test Item Value Reference Range Interpretation Comments HEMOGLOBIN A1c (test code = 17607) 7.0 % TSH, THIRD GENERATION [ADDED]2021-05-16 00:00:00 [...] Interpretation Comments HEMOGLOBIN A1c (test code = 84426) 7.0 % HEMOGLOBIN A1c [ADDED]2021-05-16 00:00:00 Test Item Value Reference Range Interpretation Comments HEMOGLOBIN A1c (test code = 73007) 7.0 % HEMOGLOBIN A1c [ADDED]2021-05-16 00:00:00 Test Item Value Reference Range Interpretation Comments HEMOGLOBIN A1c (test code = 24653) 7.0 % TSH, THIRD GENERATION [ADDED]2021-05-16 00:00:00 [...] Interpretation Comments HEMOGLOBIN A1c (test code = 95356) 7.0 % HEMOGLOBIN A1c [ADDED]2021-05-16 00:00:00 Test Item Value Reference Range Interpretation Comments HEMOGLOBIN A1c (test code = 89465) 7.0 % HEMOGLOBIN A1c [ADDED]2021-05-16 00:00:00 Test Item Value Reference Range Interpretation Comments HEMOGLOBIN A1c (test code = 13747) 7.0 % HEMOGLOBIN A1c [ADDED]2021-05-16 00:00:00 Test Item Value Reference Range Interpretation Comments HEMOGLOBIN A1c (test code = 24528) 7.0 % HEMOGLOBIN A1c [ADDED]2021-05-16 00:00:00 Test Item Value Reference Range Interpretation Comments HEMOGLOBIN A1c (test code = 68592) 7.0 % TSH, THIRD GENERATION [ADDED]2021-05-16 00:00:00 [...] Interpretation Comments HEMOGLOBIN A1c (test code = 34730) 7.0 % HEMOGLOBIN A1c [ADDED]2021-05-16 00:00:00 Test Item Value Reference Range Interpretation Comments HEMOGLOBIN A1c (test code = 06456) 7.0 % HEMOGLOBIN A1c [ADDED]2021-05-16 00:00:00 Test Item Value Reference Range Interpretation Comments HEMOGLOBIN A1c (test code = 59023) 7.0 % TSH, THIRD GENERATION [ADDED]2021-05-16 00:00:00 [...] Interpretation Comments HEMOGLOBIN A1c (test code = 24547) 7.0 % HEMOGLOBIN A1c [ADDED]2021-05-16 00:00:00 Test Item Value Reference Range Interpretation Comments HEMOGLOBIN A1c (test code = 20657) 7.0 % HEMOGLOBIN A1c [ADDED]2021-05-16 00:00:00 Test Item Value Reference Range Interpretation Comments HEMOGLOBIN A1c (test code = 62209) 7.0 % TSH, THIRD GENERATION [ADDED]2021-05-16 00:00:00 [...] Interpretation Comments HEMOGLOBIN A1c (test code = 82319) 7.0 % HEMOGLOBIN A1c [ADDED]2021-05-16 00:00:00 Test Item Value Reference Range Interpretation Comments HEMOGLOBIN A1c (test code = 12736) 7.0 % HEMOGLOBIN A1c [ADDED]2021-05-16 00:00:00 Test Item Value Reference Range Interpretation Comments HEMOGLOBIN A1c (test code = 10315) 7.0 % TSH, THIRD GENERATION [ADDED]2021-05-16 00:00:00 [...] Interpretation Comments HEMOGLOBIN A1c (test code = 54506) 7.0 % HEMOGLOBIN A1c [ADDED]2021-05-16 00:00:00 Test Item Value Reference Range Interpretation Comments HEMOGLOBIN A1c (test code = 73012) 7.0 % HEMOGLOBIN A1c [ADDED]2021-05-16 00:00:00 Test Item Value Reference Range Interpretation Comments HEMOGLOBIN A1c (test code = 47878) 7.0 % TSH, THIRD GENERATION [ADDED]2021-05-16 00:00:00 [...] 33.700 UIU/ML code = 2821) CBC W/AUTO [id number] 00:00:00 Test Item Value Reference Range Interpretation [...] NUCLEATED RBCS (test code = 0.00 K/UL 20478) CBC W/AUTO [id number] 00:00:00 Test Item Value Reference Range Interpretation [...] NUCLEATED RBCS (test code = 0.00 K/UL 64256) CBC W/AUTO [id number] 00:00:00 Test Item Value Reference Range Interpretation [...] NUCLEATED RBCS (test code = 0.00 K/UL 46957) COMPREHENSIVE METABOLIC [id number] 00:00:00 Test Item Value Reference Range Interpretation Comments GLUCOSE (test code = 2217) 317 MG/DL BUN (test code = 2208) 41 MG/DL CREATININE (test code = 2214) 6.82 MG/DL eGFR (2020 CKD-EPI) (test code 8 ML/MIN/1.73 = 54714) CALC BUN/CREAT (test code = 6 RATIO [...] code = 2219) 22 U/L COMPREHENSIVE METABOLIC [id number] 00:00:00 Test Item Value Reference Range Interpretation Comments GLUCOSE (test code = 2217) 317 MG/DL BUN (test code = 2208) 41 MG/DL CREATININE (test code = 2214) 6.82 MG/DL eGFR (2020 CKD-EPI) (test code 8 ML/MIN/1.73 = 18765) CALC BUN/CREAT (test code = 6 RATIO [...] code = 2219) 22 U/L CBC W/AUTO [id number] 00:00:00 Test Item Value Reference Range Interpretation [...] NUCLEATED RBCS (test code = 0.00 K/UL 81002) CBC W/AUTO [id number] 00:00:00 Test Item Value Reference Range Interpretation [...] NUCLEATED RBCS (test code = 0.00 K/UL 80565) CBC W/AUTO [id number] 00:00:00 Test Item Value Reference Range Interpretation [...] NUCLEATED RBCS (test code = 0.00 K/UL 24504) COMPREHENSIVE METABOLIC [id number] 00:00:00 Test Item Value Reference Range Interpretation Comments GLUCOSE (test code = 2217) 317 MG/DL BUN (test code = 2208) 41 MG/DL CREATININE (test code = 2214) 6.82 MG/DL eGFR (2020 CKD-EPI) (test code 8 ML/MIN/1.73 = 86727) CALC BUN/CREAT (test code = 6 RATIO [...] code = 2219) 22 U/L COMPREHENSIVE METABOLIC [id number] 00:00:00 Test Item Value Reference Range Interpretation Comments GLUCOSE (test code = 2217) 317 MG/DL BUN (test code = 2208) 41 MG/DL CREATININE (test code = 2214) 6.82 MG/DL eGFR (2020 CKD-EPI) (test code 8 ML/MIN/1.73 = 92819) CALC BUN/CREAT (test code = 6 RATIO [...] code = 2219) 22 U/L CBC W/AUTO [id number] 00:00:00 Test Item Value Reference Range Interpretation [...] NUCLEATED RBCS (test code = 0.00 K/UL 17026) CBC W/AUTO [id number] 00:00:00 Test Item Value Reference Range Interpretation [...] NUCLEATED RBCS (test code = 0.00 K/UL 49432) CBC W/AUTO [id number] 00:00:00 Test Item Value Reference Range Interpretation [...] NUCLEATED RBCS (test code = 0.00 K/UL 25371) CBC W/AUTO [id number] 00:00:00 Test Item Value Reference Range Interpretation [...] NUCLEATED RBCS (test code = 0.00 K/UL 70961) CBC W/AUTO [id number] 00:00:00 Test Item Value Reference Range Interpretation [...] NUCLEATED RBCS (test code = 0.00 K/UL 88418) COMPREHENSIVE METABOLIC [id number] 00:00:00 Test Item Value Reference Range Interpretation Comments GLUCOSE (test code = 2217) 317 MG/DL BUN (test code = 2208) 41 MG/DL CREATININE (test code = 2214) 6.82 MG/DL eGFR (2020 CKD-EPI) (test code 8 ML/MIN/1.73 = 37397) CALC BUN/CREAT (test code = 6 RATIO [...] code = 2219) 22 U/L COMPREHENSIVE METABOLIC [id number] 00:00:00 Test Item Value Reference Range Interpretation Comments GLUCOSE (test code = 2217) 317 MG/DL BUN (test code = 2208) 41 MG/DL CREATININE (test code = 2214) 6.82 MG/DL eGFR (2020 CKD-EPI) (test code 8 ML/MIN/1.73 = 68619) CALC BUN/CREAT (test code = 6 RATIO [...] code = 2219) 22 U/L COMPREHENSIVE METABOLIC [id number] 00:00:00 Test Item Value Reference Range Interpretation Comments GLUCOSE (test code = 2217) 317 MG/DL BUN (test code = 2208) 41 MG/DL CREATININE (test code = 2214) 6.82 MG/DL eGFR (2020 CKD-EPI) (test code 8 ML/MIN/1.73 = 25189) CALC BUN/CREAT (test code = 6 RATIO [...] code = 2219) 22 U/L CBC W/AUTO [id number] 00:00:00 Test Item Value Reference Range Interpretation [...] NUCLEATED RBCS (test code = 0.00 K/UL 64817) CBC W/AUTO [id number] 00:00:00 Test Item Value Reference Range Interpretation [...] NUCLEATED RBCS (test code = 0.00 K/UL 61282) CBC W/AUTO [id number] 00:00:00 Test Item Value Reference Range Interpretation [...] NUCLEATED RBCS (test code = 0.00 K/UL 27991) COMPREHENSIVE METABOLIC [id number] 00:00:00 Test Item Value Reference Range Interpretation Comments GLUCOSE (test code = 2217) 317 MG/DL BUN (test code = 2208) 41 MG/DL CREATININE (test code = 2214) 6.82 MG/DL eGFR (2020 CKD-EPI) (test code 8 ML/MIN/1.73 = 90568) CALC BUN/CREAT (test code = 6 RATIO [...] code = 2219) 22 U/L COMPREHENSIVE METABOLIC [id number] 00:00:00 Test Item Value Reference Range Interpretation Comments GLUCOSE (test code = 2217) 317 MG/DL BUN (test code = 2208) 41 MG/DL CREATININE (test code = 2214) 6.82 MG/DL eGFR (2020 CKD-EPI) (test code 8 ML/MIN/1.73 = 50892) CALC BUN/CREAT (test code = 6 RATIO [...] code = 2219) 22 U/L CBC W/AUTO [id number] 00:00:00 Test Item Value Reference Range Interpretation [...] NUCLEATED RBCS (test code = 0.00 K/UL 43843) CBC W/AUTO [id number] 00:00:00 Test Item Value Reference Range Interpretation [...] NUCLEATED RBCS (test code = 0.00 K/UL 51698) CBC W/AUTO [id number] 00:00:00 Test Item Value Reference Range Interpretation [...] NUCLEATED RBCS (test code = 0.00 K/UL 73765) COMPREHENSIVE METABOLIC [id number] 00:00:00 Test Item Value Reference Range Interpretation Comments GLUCOSE (test code = 2217) 317 MG/DL BUN (test code = 2208) 41 MG/DL CREATININE (test code = 2214) 6.82 MG/DL eGFR (2020 CKD-EPI) (test code 8 ML/MIN/1.73 = 11754) CALC BUN/CREAT (test code = 6 RATIO [...] code = 2219) 22 U/L COMPREHENSIVE METABOLIC [id number] 00:00:00 Test Item Value Reference Range Interpretation Comments GLUCOSE (test code = 2217) 317 MG/DL BUN (test code = 2208) 41 MG/DL CREATININE (test code = 2214) 6.82 MG/DL eGFR (2020 CKD-EPI) (test code 8 ML/MIN/1.73 = 26359) CALC BUN/CREAT (test code = 6 RATIO [...] code = 2219) 22 U/L CBC W/AUTO [id number] 00:00:00 Test Item Value Reference Range Interpretation [...] NUCLEATED RBCS (test code = 0.00 K/UL 12449) CBC W/AUTO [id number] 00:00:00 Test Item Value Reference Range Interpretation [...] NUCLEATED RBCS (test code = 0.00 K/UL 57610) CBC W/AUTO [id number] 00:00:00 Test Item Value Reference Range Interpretation [...] RBCS (test code = 0.00 K/UL 58153) COMPREHENSIVE METABOLIC [id number] 00:00:00 Test Item Value Reference Range Interpretation Comments GLUCOSE (test code = 2217) 317 MG/DL BUN (test code = 2208) 41 MG/DL CREATININE (test code = 2214) 6.82 MG/DL eGFR (2020 CKD-EPI) (test code 8 ML/MIN/1.73 = 75328) CALC BUN/CREAT (test code = 6 RATIO [...] code = 2219) 22 U/L COMPREHENSIVE METABOLIC [id number] 00:00:00 Test Item Value Reference Range Interpretation Comments GLUCOSE (test code = 2217) 317 MG/DL BUN (test code = 2208) 41 MG/DL CREATININE (test code = 2214) 6.82 MG/DL eGFR (2020 CKD-EPI) (test code 8 ML/MIN/1.73 = 96950) CALC BUN/CREAT (test code = 6 RATIO [...] code = 2219) 22 U/L CBC W/AUTO [id number] 00:00:00 Test Item Value Reference Range Interpretation [...] NUCLEATED RBCS (test code = 0.00 K/UL 11513) CBC W/AUTO [id number] 00:00:00 Test Item Value Reference Range Interpretation [...] NUCLEATED RBCS (test code = 0.00 K/UL 44837) CBC W/AUTO [id number] 00:00:00 Test Item Value Reference Range Interpretation [...] RBCS (test code = 0.00 K/UL 20749) COMPREHENSIVE METABOLIC [id number] 00:00:00 Test Item Value Reference Range Interpretation Comments GLUCOSE (test code = 2217) 317 MG/DL BUN (test code = 2208) 41 MG/DL CREATININE (test code = 2214) 6.82 MG/DL eGFR (2020 CKD-EPI) (test code 8 ML/MIN/1.73 = 24683) CALC BUN/CREAT (test code = 6 RATIO [...] code = 2219) 22 U/L COMPREHENSIVE METABOLIC [id number] 00:00:00 Test Item Value Reference Range Interpretation Comments GLUCOSE (test code = 2217) 317 MG/DL BUN (test code = 2208) 41 MG/DL CREATININE (test code = 2214) 6.82 MG/DL eGFR (2020 CKD-EPI) (test code 8 ML/MIN/1.73 = 16515) CALC BUN/CREAT (test code = 6 RATIO [...] ALT (test code = 2219) 22 U/L [id number] 00:00:00 Test Item Value Reference Range Interpretation Comments AMYLASE (test code = 2205) 168 U/L [id number] 00:00:00 Test Item Value Reference Range Interpretation Comments AMYLASE (test code = 2205) 168 U/L [id number] 00:00:00 Test Item Value Reference Range Interpretation Comments LIPASE (test code = 2057) 116 U/L [id number] 00:00:00 Test Item Value Reference Range Interpretation Comments LIPASE (test code = 2057) 116 U/L [id number] 00:00:00 Test Item Value Reference Range Interpretation Comments LIPASE (test code = 2057) 116 U/L [id number] 00:00:00 Test Item Value Reference Range Interpretation Comments AMYLASE (test code = 2205) 168 U/L [id number] 00:00:00 Test Item Value Reference Range Interpretation Comments AMYLASE (test code = 2204) 168 U/L [id number] 00:00:00 Test Item Value Reference Range Interpretation Comments LIPASE (test code = 2057) 116 U/L [id number] 00:00:00 Test Item Value Reference Range Interpretation Comments LIPASE (test code = 2057) 116 U/L [id number] 00:00:00 Test Item Value Reference Range Interpretation Comments LIPASE (test code = 2057) 116 U/L [id number] 00:00:00 Test Item Value Reference Range Interpretation Comments AMYLASE (test code = 5) 168 U/L [id number] 00:00:00 Test Item Value Reference Range Interpretation Comments AMYLASE (test code = 2205) 168 U/L [id number] 00:00:00 Test Item Value Reference Range Interpretation Comments AMYLASE (test code = 2205) 168 U/L [id number] 00:00:00 Test Item Value Reference Range Interpretation Comments LIPASE (test code = 2057) 116 U/L [id number] 00:00:00 Test Item Value Reference Range Interpretation Comments LIPASE (test code = 2057) 116 U/L [id number] 00:00:00 Test Item Value Reference Range Interpretation Comments LIPASE (test code = 2057) 116 U/L [id number] 00:00:00 Test Item Value Reference Range Interpretation Comments LIPASE (test code = 2057) 116 U/L [id number] 00:00:00 Test Item Value Reference Range Interpretation Comments LIPASE (test code = 2057) 116 U/L [id number] 00:00:00 Test Item Value Reference Range Interpretation Comments AMYLASE (test code = 5) 168 U/L [id number] 00:00:00 Test Item Value Reference Range Interpretation Comments AMYLASE (test code = 2205) 168 U/L [id number] 00:00:00 Test Item Value Reference Range Interpretation Comments LIPASE (test code = 2057) 116 U/L [id number] 00:00:00 Test Item Value Reference Range Interpretation Comments LIPASE (test code = 2057) 116 U/L [id number] 00:00:00 Test Item Value Reference Range Interpretation Comments LIPASE (test code = 2057) 116 U/L [id number] 00:00:00 Test Item Value Reference Range Interpretation Comments AMYLASE (test code = 2205) 168 U/L [id number] 00:00:00 Test Item Value Reference Range Interpretation Comments AMYLASE (test code = 2205) 168 U/L [id number] 00:00:00 Test Item Value Reference Range Interpretation Comments LIPASE (test code = 2057) 116 U/L [id number] 00:00:00 Test Item Value Reference Range Interpretation Comments LIPASE (test code = 2057) 116 U/L [id number] 00:00:00 Test Item Value Reference Range Interpretation Comments LIPASE (test code = 2057) 116 U/L [id number] 00:00:00 Test Item Value Reference Range Interpretation Comments AMYLASE (test code = 2205) 168 U/L [id number] 00:00:00 Test Item Value Reference Range Interpretation Comments AMYLASE (test code = 2205) 168 U/L [id number] 00:00:00 Test Item Value Reference Range Interpretation Comments LIPASE (test code = 2057) 116 U/L [id number] 00:00:00 Test Item Value Reference Range Interpretation Comments LIPASE (test code = 2057) 116 U/L [id number] 00:00:00 Test Item Value Reference Range Interpretation Comments LIPASE (test code = 2057) 116 U/L [id number] 00:00:00 Test Item Value Reference Range Interpretation Comments AMYLASE (test code = 2205) 168 U/L [id number] 00:00:00 Test Item Value Reference Range Interpretation Comments AMYLASE (test code = 2205) 168 U/L [id number] 00:00:00 Test Item Value Reference Range Interpretation Comments LIPASE (test code = 2057) 116 U/L [id number] 00:00:00 Test Item Value Reference Range Interpretation Comments LIPASE (test code = 2057) 116 U/L [id number] 00:00:00 Test Item Value Reference Range Interpretation Comments LIPASE (test code = 2057) 116 U/L [id number] 00:00:00 Test Item Value Reference Range Interpretation Comments TSH, THIRD GENERATION (test >100.000 UIU/ML code = 2821) [id number] 00:00:00 Test Item Value Reference Range Interpretation Comments TSH, THIRD GENERATION (test >100.000 UIU/ML code = 2821) [id number] 00:00:00 Test Item Value Reference Range Interpretation Comments TSH, THIRD GENERATION (test >100.000 UIU/ML code = 2821) LIPID [id number] 00:00:00 Test Item Value Reference Range Interpretation Comments CHOLESTEROL (test code = 2210) 308 MG/DL TRIGLYCERIDES (test code = 2232) 280 MG/DL HDL CHOLESTEROL (test code = 2220) 66 MG/DL CALC LDL CHOL (test code = 2237) 192 MG/DL RISK RATIO LDL/HDL (test code = 2.91 RATIO 2238) LIPID [id number] 00:00:00 Test Item Value Reference Range Interpretation Comments CHOLESTEROL (test code = 2210) 308 MG/DL TRIGLYCERIDES (test code = 2232) 280 MG/DL HDL CHOLESTEROL (test code = 2220) 66 MG/DL CALC LDL CHOL (test code = 2237) 192 MG/DL RISK RATIO LDL/HDL (test code = 2.91 RATIO 2238) CBC W/AUTO [id number] 00:00:00 Test Item Value Reference Range Interpretation [...] NUCLEATED RBCS (test code = 0.00 K/UL 29135) CBC W/AUTO [id number] 00:00:00 Test Item Value Reference Range Interpretation [...] NUCLEATED RBCS (test code = 0.00 K/UL 73671) CBC W/AUTO [id number] 00:00:00 Test Item Value Reference Range Interpretation [...] NUCLEATED RBCS (test code = 0.00 K/UL 08300) COMPREHENSIVE METABOLIC [id number] 00:00:00 Test Item Value Reference Range Interpretation Comments GLUCOSE (test code = 2217) 137 MG/DL BUN (test code = 2208) 56 MG/DL CREATININE (test code = 2214) 10.21 MG/DL eGFR AMER. (test code = 6 ML/MIN/1.73 41441) eGFR NON- AMER. (test 5 ML/MIN/1.73 code = 78193) CALC BUN/CREAT (test code = 5 RATIO [...] code = 2219) 16 U/L COMPREHENSIVE METABOLIC [id number] 00:00:00 Test Item Value Reference Range Interpretation Comments GLUCOSE (test code = 2217) 137 MG/DL BUN (test code = 2208) 56 MG/DL CREATININE (test code = 2214) 10.21 MG/DL eGFR AMER. (test code = 6 ML/MIN/1.73 31540) eGFR NON- AMER. (test 5 ML/MIN/1.73 code = 57921) CALC BUN/CREAT (test code = 5 RATIO [...] ALT (test code = 2219) 16 U/L [id number] 00:00:00 Test Item Value Reference Range Interpretation Comments TSH, THIRD GENERATION (test >100.000 UIU/ML code = 2821) [id number] 00:00:00 Test Item Value Reference Range Interpretation Comments TSH, THIRD GENERATION (test >100.000 UIU/ML code = 2821) [id number] 00:00:00 Test Item Value Reference Range Interpretation Comments TSH, THIRD GENERATION (test >100.000 UIU/ML code = 2821) LIPID [id number] 00:00:00 Test Item Value Reference Range Interpretation Comments CHOLESTEROL (test code = 2210) 308 MG/DL TRIGLYCERIDES (test code = 2232) 280 MG/DL HDL CHOLESTEROL (test code = 2220) 66 MG/DL CALC LDL CHOL (test code = 2237) 192 MG/DL RISK RATIO LDL/HDL (test code = 2.91 RATIO 2238) LIPID [id number] 00:00:00 Test Item Value Reference Range Interpretation Comments CHOLESTEROL (test code = 2210) 308 MG/DL TRIGLYCERIDES (test code = 2232) 280 MG/DL HDL CHOLESTEROL (test code = 2220) 66 MG/DL CALC LDL CHOL (test code = 2237) 192 MG/DL RISK RATIO LDL/HDL (test code = 2.91 RATIO 2238) CBC W/AUTO [id number] 00:00:00 Test Item Value Reference Range Interpretation [...] NUCLEATED RBCS (test code = 0.00 K/UL 25633) CBC W/AUTO [id number] 00:00:00 Test Item Value Reference Range Interpretation [...] NUCLEATED RBCS (test code = 0.00 K/UL 52102) CBC W/AUTO [id number] 00:00:00 Test Item Value Reference Range Interpretation [...] NUCLEATED RBCS (test code = 0.00 K/UL 79724) COMPREHENSIVE METABOLIC [id number] 00:00:00 Test Item Value Reference Range Interpretation Comments GLUCOSE (test code = 2217) 137 MG/DL BUN (test code = 2208) 56 MG/DL CREATININE (test code = 2214) 10.21 MG/DL eGFR AMER. (test code = 6 ML/MIN/1.73 92495) eGFR NON- AMER. (test 5 ML/MIN/1.73 code = 50658) CALC BUN/CREAT (test code = 5 RATIO [...] code = 2219) 16 U/L COMPREHENSIVE METABOLIC [id number] 00:00:00 Test Item Value Reference Range Interpretation Comments GLUCOSE (test code = 2217) 137 MG/DL BUN (test code = 2208) 56 MG/DL CREATININE (test code = 2214) 10.21 MG/DL eGFR AMER. (test code = 6 ML/MIN/1.73 00142) eGFR NON- AMER. (test 5 ML/MIN/1.73 code = 35873) CALC BUN/CREAT (test code = 5 RATIO [...] ALT (test code = 2219) 16 U/L [id number] 00:00:00 Test Item Value Reference Range Interpretation Comments TSH, THIRD GENERATION (test >100.000 UIU/ML code = 2821) [id number] 00:00:00 Test Item Value Reference Range Interpretation Comments TSH, THIRD GENERATION (test >100.000 UIU/ML code = 2821) [id number] 00:00:00 Test Item Value Reference Range Interpretation Comments TSH, THIRD GENERATION (test >100.000 UIU/ML code = 2821) [id number] 00:00:00 Test Item Value Reference Range Interpretation Comments TSH, THIRD GENERATION (test >100.000 UIU/ML code = 2821) [id number] 00:00:00 Test Item Value Reference Range Interpretation Comments TSH, THIRD GENERATION (test >100.000 UIU/ML code = 2821) LIPID [id number] 00:00:00 Test Item Value Reference Range Interpretation Comments CHOLESTEROL (test code = 2210) 308 MG/DL TRIGLYCERIDES (test code = 2232) 280 MG/DL HDL CHOLESTEROL (test code = 2220) 66 MG/DL CALC LDL CHOL (test code = 2237) 192 MG/DL RISK RATIO LDL/HDL (test code = 2.91 RATIO 2238) LIPID [id number] 00:00:00 Test Item Value Reference Range Interpretation Comments CHOLESTEROL (test code = 2210) 308 MG/DL TRIGLYCERIDES (test code = 2232) 280 MG/DL HDL CHOLESTEROL (test code = 2220) 66 MG/DL CALC LDL CHOL (test code = 2237) 192 MG/DL RISK RATIO LDL/HDL (test code = 2.91 RATIO 2238) CBC W/AUTO [id number] 00:00:00 Test Item Value Reference Range Interpretation [...] NUCLEATED RBCS (test code = 0.00 K/UL 75222) CBC W/AUTO [id number] 00:00:00 Test Item Value Reference Range Interpretation [...] NUCLEATED RBCS (test code = 0.00 K/UL 37804) CBC W/AUTO [id number] 00:00:00 Test Item Value Reference Range Interpretation [...] NUCLEATED RBCS (test code = 0.00 K/UL 85028) COMPREHENSIVE METABOLIC [id number] 00:00:00 Test Item Value Reference Range Interpretation Comments GLUCOSE (test code = 2217) 137 MG/DL BUN (test code = 2208) 56 MG/DL CREATININE (test code = 2214) 10.21 MG/DL eGFR AMER. (test code = 6 ML/MIN/1.73 60613) eGFR NON- AMER. (test 5 ML/MIN/1.73 code = 04664) CALC BUN/CREAT (test code = 5 RATIO [...] code = 2219) 16 U/L COMPREHENSIVE METABOLIC [id number] 00:00:00 Test Item Value Reference Range Interpretation Comments GLUCOSE (test code = 2217) 137 MG/DL BUN (test code = 2208) 56 MG/DL CREATININE (test code = 2214) 10.21 MG/DL eGFR AMER. (test code = 6 ML/MIN/1.73 96592) eGFR NON- AMER. (test 5 ML/MIN/1.73 code = 02297) CALC BUN/CREAT (test code = 5 RATIO [...] (test code = 2219) 16 U/L LIPID [id number] 00:00:00 Test Item Value Reference Range Interpretation Comments CHOLESTEROL (test code = 2210) 308 MG/DL TRIGLYCERIDES (test code = 2232) 280 MG/DL HDL CHOLESTEROL (test code = 2220) 66 MG/DL CALC LDL CHOL (test code = 2237) 192 MG/DL RISK RATIO LDL/HDL (test code = 2.91 RATIO 2238) CBC W/AUTO [id number] 00:00:00 Test Item Value Reference Range Interpretation [...] NUCLEATED RBCS (test code = 0.00 K/UL 74920) CBC W/AUTO [id number] 00:00:00 Test Item Value Reference Range Interpretation [...] NUCLEATED RBCS (test code = 0.00 K/UL 13318) COMPREHENSIVE METABOLIC [id number] 00:00:00 Test Item Value Reference Range Interpretation Comments GLUCOSE (test code = 2217) 137 MG/DL BUN (test code = 2208) 56 MG/DL CREATININE (test code = 2214) 10.21 MG/DL eGFR AMER. (test code = 6 ML/MIN/1.73 01841) eGFR NON- AMER. (test 5 ML/MIN/1.73 code = 01618) CALC BUN/CREAT (test code = 5 RATIO [...] ALT (test code = 2219) 16 U/L [id number] 00:00:00 Test Item Value Reference Range Interpretation Comments TSH, THIRD GENERATION (test >100.000 UIU/ML code = 2821) [id number] 00:00:00 Test Item Value Reference Range Interpretation Comments TSH, THIRD GENERATION (test >100.000 UIU/ML code = 2821) [id number] 00:00:00 Test Item Value Reference Range Interpretation Comments TSH, THIRD GENERATION (test >100.000 UIU/ML code = 2821) LIPID [id number] 00:00:00 Test Item Value Reference Range Interpretation Comments CHOLESTEROL (test code = 2210) 308 MG/DL TRIGLYCERIDES (test code = 2232) 280 MG/DL HDL CHOLESTEROL (test code = 2220) 66 MG/DL CALC LDL CHOL (test code = 2237) 192 MG/DL RISK RATIO LDL/HDL (test code = 2.91 RATIO 2238) LIPID [id number] 00:00:00 Test Item Value Reference Range Interpretation Comments CHOLESTEROL (test code = 2210) 308 MG/DL TRIGLYCERIDES (test code = 2232) 280 MG/DL HDL CHOLESTEROL (test code = 2220) 66 MG/DL CALC LDL CHOL (test code = 2237) 192 MG/DL RISK RATIO LDL/HDL (test code = 2.91 RATIO 2238) CBC W/AUTO [id number] 00:00:00 Test Item Value Reference Range Interpretation [...] NUCLEATED RBCS (test code = 0.00 K/UL 04036) CBC W/AUTO [id number] 00:00:00 Test Item Value Reference Range Interpretation [...] NUCLEATED RBCS (test code = 0.00 K/UL 06912) CBC W/AUTO [id number] 00:00:00 Test Item Value Reference Range Interpretation [...] NUCLEATED RBCS (test code = 0.00 K/UL 07304) COMPREHENSIVE METABOLIC [id number] 00:00:00 Test Item Value Reference Range Interpretation Comments GLUCOSE (test code = 2217) 137 MG/DL BUN (test code = 2208) 56 MG/DL CREATININE (test code = 2214) 10.21 MG/DL eGFR AMER. (test code = 6 ML/MIN/1.73 83541) eGFR NON- AMER. (test 5 ML/MIN/1.73 code = 07856) CALC BUN/CREAT (test code = 5 RATIO [...] code = 2219) 16 U/L COMPREHENSIVE METABOLIC [id number] 00:00:00 Test Item Value Reference Range Interpretation Comments GLUCOSE (test code = 2217) 137 MG/DL BUN (test code = 2208) 56 MG/DL CREATININE (test code = 2214) 10.21 MG/DL eGFR AMER. (test code = 6 ML/MIN/1.73 37121) eGFR NON- AMER. (test 5 ML/MIN/1.73 code = 82716) CALC BUN/CREAT (test code = 5 RATIO [...] ALT (test code = 2219) 16 U/L [id number] 00:00:00 Test Item Value Reference Range Interpretation Comments TSH, THIRD GENERATION (test >100.000 UIU/ML code = 2821) [id number] 00:00:00 Test Item Value Reference Range Interpretation Comments TSH, THIRD GENERATION (test >100.000 UIU/ML code = 2821) [id number] 00:00:00 Test Item Value Reference Range Interpretation Comments TSH, THIRD GENERATION (test >100.000 UIU/ML code = 2821) LIPID [id number] 00:00:00 Test Item Value Reference Range Interpretation Comments CHOLESTEROL (test code = 2210) 308 MG/DL TRIGLYCERIDES (test code = 2232) 280 MG/DL HDL CHOLESTEROL (test code = 2220) 66 MG/DL CALC LDL CHOL (test code = 2237) 192 MG/DL RISK RATIO LDL/HDL (test code = 2.91 RATIO 2238) LIPID [id number] 00:00:00 Test Item Value Reference Range Interpretation Comments CHOLESTEROL (test code = 2210) 308 MG/DL TRIGLYCERIDES (test code = 2232) 280 MG/DL HDL CHOLESTEROL (test code = 2220) 66 MG/DL CALC LDL CHOL (test code = 2237) 192 MG/DL RISK RATIO LDL/HDL (test code = 2.91 RATIO 2238) CBC W/AUTO [id number] 00:00:00 Test Item Value Reference Range Interpretation [...] NUCLEATED RBCS (test code = 0.00 K/UL 40126) CBC W/AUTO [id number] 00:00:00 Test Item Value Reference Range Interpretation [...] NUCLEATED RBCS (test code = 0.00 K/UL 08994) CBC W/AUTO [id number] 00:00:00 Test Item Value Reference Range Interpretation [...] NUCLEATED RBCS (test code = 0.00 K/UL 35399) COMPREHENSIVE METABOLIC [id number] 00:00:00 Test Item Value Reference Range Interpretation Comments GLUCOSE (test code = 2217) 137 MG/DL BUN (test code = 2208) 56 MG/DL CREATININE (test code = 2214) 10.21 MG/DL eGFR AMER. (test code = 6 ML/MIN/1.73 81310) eGFR NON- AMER. (test 5 ML/MIN/1.73 code = 10430) CALC BUN/CREAT (test code = 5 RATIO [...] code = 2219) 16 U/L COMPREHENSIVE METABOLIC [id number] 00:00:00 Test Item Value Reference Range Interpretation Comments GLUCOSE (test code = 2217) 137 MG/DL BUN (test code = 2208) 56 MG/DL CREATININE (test code = 2214) 10.21 MG/DL eGFR AMER. (test code = 6 ML/MIN/1.73 13911) eGFR NON- AMER. (test 5 ML/MIN/1.73 code = 21459) CALC BUN/CREAT (test code = 5 RATIO [...] ALT (test code = 2219) 16 U/L [id number] 00:00:00 Test Item Value Reference Range Interpretation Comments TSH, THIRD GENERATION (test >100.000 UIU/ML code = 2821) [id number] 00:00:00 Test Item Value Reference Range Interpretation Comments TSH, THIRD GENERATION (test >100.000 UIU/ML code = 2821) [id number] 00:00:00 Test Item Value Reference Range Interpretation Comments TSH, THIRD GENERATION (test >100.000 UIU/ML code = 2821) LIPID [id number] 00:00:00 Test Item Value Reference Range Interpretation Comments CHOLESTEROL (test code = 2210) 308 MG/DL TRIGLYCERIDES (test code = 2232) 280 MG/DL HDL CHOLESTEROL (test code = 2220) 66 MG/DL CALC LDL CHOL (test code = 2237) 192 MG/DL RISK RATIO LDL/HDL (test code = 2.91 RATIO 2238) LIPID [id number] 00:00:00 Test Item Value Reference Range Interpretation Comments CHOLESTEROL (test code = 2210) 308 MG/DL TRIGLYCERIDES (test code = 2232) 280 MG/DL HDL CHOLESTEROL (test code = 2220) 66 MG/DL CALC LDL CHOL (test code = 2237) 192 MG/DL RISK RATIO LDL/HDL (test code = 2.91 RATIO 2238) CBC W/AUTO [id number] 00:00:00 Test Item Value Reference Range Interpretation [...] NUCLEATED RBCS (test code = 0.00 K/UL 17781) CBC W/AUTO [id number] 00:00:00 Test Item Value Reference Range Interpretation [...] NUCLEATED RBCS (test code = 0.00 K/UL 14167) CBC W/AUTO [id number] 00:00:00 Test Item Value Reference Range Interpretation [...] NUCLEATED RBCS (test code = 0.00 K/UL 40677) COMPREHENSIVE METABOLIC [id number] 00:00:00 Test Item Value Reference Range Interpretation Comments GLUCOSE (test code = 2217) 137 MG/DL BUN (test code = 2208) 56 MG/DL CREATININE (test code = 2214) 10.21 MG/DL eGFR AMER. (test code = 6 ML/MIN/1.73 20804) eGFR NON- AMER. (test 5 ML/MIN/1.73 code = 04078) CALC BUN/CREAT (test code = 5 RATIO [...] code = 2219) 16 U/L COMPREHENSIVE METABOLIC [id number] 00:00:00 Test Item Value Reference Range Interpretation Comments GLUCOSE (test code = 2217) 137 MG/DL BUN (test code = 2208) 56 MG/DL CREATININE (test code = 2214) 10.21 MG/DL eGFR AMER. (test code = 6 ML/MIN/1.73 35493) eGFR NON- AMER. (test 5 ML/MIN/1.73 code = 98753) CALC BUN/CREAT (test code = 5 RATIO [...] ALT (test code = 2219) 16 U/L [id number] 00:00:00 Test Item Value Reference Range Interpretation Comments TSH, THIRD GENERATION (test >100.000 UIU/ML code = 2821) [id number] 00:00:00 Test Item Value Reference Range Interpretation Comments TSH, THIRD GENERATION (test >100.000 UIU/ML code = 2821) [id number] 00:00:00 Test Item Value Reference Range Interpretation Comments TSH, THIRD GENERATION (test >100.000 UIU/ML code = 2821) LIPID [id number] 00:00:00 Test Item Value Reference Range Interpretation Comments CHOLESTEROL (test code = 2210) 308 MG/DL TRIGLYCERIDES (test code = 2232) 280 MG/DL HDL CHOLESTEROL (test code = 2220) 66 MG/DL CALC LDL CHOL (test code = 2237) 192 MG/DL RISK RATIO LDL/HDL (test code = 2.91 RATIO 2238) LIPID [id number] 00:00:00 Test Item Value Reference Range Interpretation Comments CHOLESTEROL (test code = 2210) 308 MG/DL TRIGLYCERIDES (test code = 2232) 280 MG/DL HDL CHOLESTEROL (test code = 2220) 66 MG/DL CALC LDL CHOL (test code = 2237) 192 MG/DL RISK RATIO LDL/HDL (test code = 2.91 RATIO 2238) CBC W/AUTO [id number] 00:00:00 Test Item Value Reference Range Interpretation [...] NUCLEATED RBCS (test code = 0.00 K/UL 62469) CBC W/AUTO [id number] 00:00:00 Test Item Value Reference Range Interpretation [...] NUCLEATED RBCS (test code = 0.00 K/UL 34908) CBC W/AUTO [id number] 00:00:00 Test Item Value Reference Range Interpretation [...] NUCLEATED RBCS (test code = 0.00 K/UL 00156) COMPREHENSIVE METABOLIC [id number] 00:00:00 Test Item Value Reference Range Interpretation Comments GLUCOSE (test code = 2217) 137 MG/DL BUN (test code = 2208) 56 MG/DL CREATININE (test code = 2214) 10.21 MG/DL eGFR AMER. (test code = 6 ML/MIN/1.73 58190) eGFR NON- AMER. (test 5 ML/MIN/1.73 code = 93427) CALC BUN/CREAT (test code = 5 RATIO [...] code = 2219) 16 U/L COMPREHENSIVE METABOLIC [id number] 00:00:00 Test Item Value Reference Range Interpretation Comments GLUCOSE (test code = 2217) 137 MG/DL BUN (test code = 2208) 56 MG/DL CREATININE (test code = 2214) 10.21 MG/DL eGFR AMER. (test code = 6 ML/MIN/1.73 98568) eGFR NON- AMER. (test 5 ML/MIN/1.73 code = 78190) CALC BUN/CREAT (test code = 5 RATIO [...] (test code = 2219) 16 U/L HEMOGLOBIN [id number] 00:00:00 Test Item Value Reference Range Interpretation Comments HEMOGLOBIN A1c (test code = 02987) 5.5 % HEMOGLOBIN [id number] 00:00:00 Test Item Value Reference Range Interpretation Comments HEMOGLOBIN A1c (test code = 10580) 5.5 % HEMOGLOBIN [id number] 00:00:00 Test Item Value Reference Range Interpretation Comments HEMOGLOBIN A1c (test code = 97320) 5.5 % [id number] 00:00:00 Test Item Value Reference Range Interpretation Comments TSH, THIRD GENERATION (test >100.000 UIU/ML code = 2821) [id number] 00:00:00 Test Item Value Reference Range Interpretation Comments TSH, THIRD GENERATION (test >100.000 UIU/ML code = 2821) [id number] 00:00:00 Test Item Value Reference Range Interpretation Comments TSH, THIRD GENERATION (test >100.000 UIU/ML code = 2821) HEMOGLOBIN [id number] 00:00:00 Test Item Value Reference Range Interpretation Comments HEMOGLOBIN A1c (test code = 81983) 5.5 % HEMOGLOBIN [id number] 00:00:00 Test Item Value Reference Range Interpretation Comments HEMOGLOBIN A1c (test code = 87096) 5.5 % HEMOGLOBIN [id number] 00:00:00 Test Item Value Reference Range Interpretation Comments HEMOGLOBIN A1c (test code = 71430) 5.5 % [id number] 00:00:00 Test Item Value Reference Range Interpretation Comments TSH, THIRD GENERATION (test >100.000 UIU/ML code = 2821) [id number] 00:00:00 Test Item Value Reference Range Interpretation Comments TSH, THIRD GENERATION (test >100.000 UIU/ML code = 2821) [id number] 00:00:00 Test Item Value Reference Range Interpretation Comments TSH, THIRD GENERATION (test >100.000 UIU/ML code = 2821) HEMOGLOBIN [id number] 00:00:00 Test Item Value Reference Range Interpretation Comments HEMOGLOBIN A1c (test code = 83132) 5.5 % HEMOGLOBIN [id number] 00:00:00 Test Item Value Reference Range Interpretation Comments HEMOGLOBIN A1c (test code = 44972) 5.5 % HEMOGLOBIN [id number] 00:00:00 Test Item Value Reference Range Interpretation Comments HEMOGLOBIN A1c (test code = 06723) 5.5 % HEMOGLOBIN [id number] 00:00:00 Test Item Value Reference Range Interpretation Comments HEMOGLOBIN A1c (test code = 53088) 5.5 % HEMOGLOBIN [id number] 00:00:00 Test Item Value Reference Range Interpretation Comments HEMOGLOBIN A1c (test code = 01820) 5.5 % [id number] 00:00:00 Test Item Value Reference Range Interpretation Comments TSH, THIRD GENERATION (test >100.000 UIU/ML code = 2821) [id number] 00:00:00 Test Item Value Reference Range Interpretation Comments TSH, THIRD GENERATION (test >100.000 UIU/ML code = 2821) [id number] 00:00:00 Test Item Value Reference Range Interpretation Comments TSH, THIRD GENERATION (test >100.000 UIU/ML code = 2821) [id number] 00:00:00 Test Item Value Reference Range Interpretation Comments TSH, THIRD GENERATION (test >100.000 UIU/ML code = 2821) [id number] 00:00:00 Test Item Value Reference Range Interpretation Comments TSH, THIRD GENERATION (test >100.000 UIU/ML code = 2821) HEMOGLOBIN [id number] 00:00:00 Test Item Value Reference Range Interpretation Comments HEMOGLOBIN A1c (test code = 07474) 5.5 % HEMOGLOBIN [id number] 00:00:00 Test Item Value Reference Range Interpretation Comments HEMOGLOBIN A1c (test code = 67078) 5.5 % HEMOGLOBIN [id number] 00:00:00 Test Item Value Reference Range Interpretation Comments HEMOGLOBIN A1c (test code = 95404) 5.5 % [id number] 00:00:00 Test Item Value Reference Range Interpretation Comments TSH, THIRD GENERATION (test >100.000 UIU/ML code = 2821) [id number] 00:00:00 Test Item Value Reference Range Interpretation Comments TSH, THIRD GENERATION (test >100.000 UIU/ML code = 2821) [id number] 00:00:00 Test Item Value Reference Range Interpretation Comments TSH, THIRD GENERATION (test >100.000 UIU/ML code = 2821) HEMOGLOBIN [id number] 00:00:00 Test Item Value Reference Range Interpretation Comments HEMOGLOBIN A1c (test code = 48866) 5.5 % HEMOGLOBIN [id number] 00:00:00 Test Item Value Reference Range Interpretation Comments HEMOGLOBIN A1c (test code = 38132) 5.5 % HEMOGLOBIN [id number] 00:00:00 Test Item Value Reference Range Interpretation Comments HEMOGLOBIN A1c (test code = 83186) 5.5 % [id number] 00:00:00 Test Item Value Reference Range Interpretation Comments TSH, THIRD GENERATION (test >100.000 UIU/ML code = 2821) [id number] 00:00:00 Test Item Value Reference Range Interpretation Comments TSH, THIRD GENERATION (test >100.000 UIU/ML code = 2821) [id number] 00:00:00 Test Item Value Reference Range Interpretation Comments TSH, THIRD GENERATION (test >100.000 UIU/ML code = 2821) HEMOGLOBIN [id number] 00:00:00 Test Item Value Reference Range Interpretation Comments HEMOGLOBIN A1c (test code = 61347) 5.5 % HEMOGLOBIN [id number] 00:00:00 Test Item Value Reference Range Interpretation Comments HEMOGLOBIN A1c (test code = 12929) 5.5 % HEMOGLOBIN [id number] 00:00:00 Test Item Value Reference Range Interpretation Comments HEMOGLOBIN A1c (test code = 12518) 5.5 % [id number] 00:00:00 Test Item Value Reference Range Interpretation Comments TSH, THIRD GENERATION (test >100.000 UIU/ML code = 2821) [id number] 00:00:00 Test Item Value Reference Range Interpretation Comments TSH, THIRD GENERATION (test >100.000 UIU/ML code = 2821) [id number] 00:00:00 Test Item Value Reference Range Interpretation Comments TSH, THIRD GENERATION (test >100.000 UIU/ML code = 2821) HEMOGLOBIN [id number] 00:00:00 Test Item Value Reference Range Interpretation Comments HEMOGLOBIN A1c (test code = 37627) 5.5 % HEMOGLOBIN [id number] 00:00:00 Test Item Value Reference Range Interpretation Comments HEMOGLOBIN A1c (test code = 97819) 5.5 % HEMOGLOBIN [id number] 00:00:00 Test Item Value Reference Range Interpretation Comments HEMOGLOBIN A1c (test code = 03586) 5.5 % [id number] 00:00:00 Test Item Value Reference Range Interpretation Comments TSH, THIRD GENERATION (test >100.000 UIU/ML code = 2821) [id number] 00:00:00 Test Item Value Reference Range Interpretation Comments TSH, THIRD GENERATION (test >100.000 UIU/ML code = 2821) [id number] 00:00:00 Test Item Value Reference Range Interpretation Comments TSH, THIRD GENERATION (test >100.000 UIU/ML code = 2821) CBC W/AUTO [id number] 00:00:00 Test Item Value Reference Range Interpretation [...] code = 1015) 298 K/UL CBC W/AUTO [id number] 00:00:00 Test Item Value Reference Range Interpretation [...] code = 1015) 298 K/UL CBC W/AUTO [id number] 00:00:00 Test Item Value Reference Range Interpretation [...] code = 1015) 298 K/UL COMPREHENSIVE METABOLIC [id number] 00:00:00 Test Item Value Reference Range Interpretation Comments GLUCOSE (test code = 2217) 228 MG/DL BUN (test code = 2208) 23 MG/DL CREATININE (test code = 2214) 5.99 MG/DL eGFR AMER. (test code 11 ML/MIN/1.73 = 73816) eGFR NON- AMER. (test 10 ML/MIN/1.73 code = 09963) CALC BUN/CREAT (test code = 4 RATIO [...] code = 2219) 24 U/L COMPREHENSIVE METABOLIC [id number] 00:00:00 Test Item Value Reference Range Interpretation Comments GLUCOSE (test code = 2217) 228 MG/DL BUN (test code = 2208) 23 MG/DL CREATININE (test code = 2214) 5.99 MG/DL eGFR AMER. (test code 11 ML/MIN/1.73 = 84996) eGFR NON- AMER. (test 10 ML/MIN/1.73 code = 88082) CALC BUN/CREAT (test code = 4 RATIO [...] (test code = 2219) 24 U/L LIPID [id number] 00:00:00 Test Item Value Reference Range Interpretation Comments CHOLESTEROL (test code = 2210) 335 MG/DL TRIGLYCERIDES (test code = 2232) 446 MG/DL HDL CHOLESTEROL (test code = 73 MG/DL 2220) CALC LDL CHOL (test code = 2237) (NOTE) MG/DL RISK RATIO LDL/HDL (test code = (NOTE) RATIO 2238) LIPID [id number] 00:00:00 Test Item Value Reference Range Interpretation Comments CHOLESTEROL (test code = 2210) 335 MG/DL TRIGLYCERIDES (test code = 2232) 446 MG/DL HDL CHOLESTEROL (test code = 73 MG/DL 2220) CALC LDL CHOL (test code = 2237) (NOTE) MG/DL RISK RATIO LDL/HDL (test code = (NOTE) RATIO 2238) [id number] 00:00:00 Test Item Value Reference Range Interpretation Comments TSH, THIRD GENERATION (test >100.000 UIU/ML code = 2821) [id number] 00:00:00 Test Item Value Reference Range Interpretation Comments TSH, THIRD GENERATION (test >100.000 UIU/ML code = 2821) [id number] 00:00:00 Test Item Value Reference Range Interpretation Comments TSH, THIRD GENERATION (test >100.000 UIU/ML code = 2821) CBC W/AUTO [id number] 00:00:00 Test Item Value Reference Range Interpretation [...] code = 1015) 298 K/UL CBC W/AUTO [id number] 00:00:00 Test Item Value Reference Range Interpretation [...] code = 1015) 298 K/UL CBC W/AUTO [id number] 00:00:00 Test Item Value Reference Range Interpretation [...] code = 1015) 298 K/UL COMPREHENSIVE METABOLIC [id number] 00:00:00 Test Item Value Reference Range Interpretation Comments GLUCOSE (test code = 2217) 228 MG/DL BUN (test code = 2208) 23 MG/DL CREATININE (test code = 2214) 5.99 MG/DL eGFR AMER. (test code 11 ML/MIN/1.73 = 23001) eGFR NON- AMER. (test 10 ML/MIN/1.73 code = 20224) CALC BUN/CREAT (test code = 4 RATIO [...] code = 2219) 24 U/L COMPREHENSIVE METABOLIC [id number] 00:00:00 Test Item Value Reference Range Interpretation Comments GLUCOSE (test code = 2217) 228 MG/DL BUN (test code = 2208) 23 MG/DL CREATININE (test code = 2214) 5.99 MG/DL eGFR AMER. (test code 11 ML/MIN/1.73 = 88976) eGFR NON- AMER. (test 10 ML/MIN/1.73 code = 16003) CALC BUN/CREAT (test code = 4 RATIO [...] (test code = 2219) 24 U/L LIPID [id number] 00:00:00 Test Item Value Reference Range Interpretation Comments CHOLESTEROL (test code = 2210) 335 MG/DL TRIGLYCERIDES (test code = 2232) 446 MG/DL HDL CHOLESTEROL (test code = 73 MG/DL 2220) CALC LDL CHOL (test code = 2237) (NOTE) MG/DL RISK RATIO LDL/HDL (test code = (NOTE) RATIO 2238) LIPID [id number] 00:00:00 Test Item Value Reference Range Interpretation Comments CHOLESTEROL (test code = 2210) 335 MG/DL TRIGLYCERIDES (test code = 2232) 446 MG/DL HDL CHOLESTEROL (test code = 73 MG/DL 2220) CALC LDL CHOL (test code = 2237) (NOTE) MG/DL RISK RATIO LDL/HDL (test code = (NOTE) RATIO 2238) [id number] 00:00:00 Test Item Value Reference Range Interpretation Comments TSH, THIRD GENERATION (test >100.000 UIU/ML code = 2821) [id number] 00:00:00 Test Item Value Reference Range Interpretation Comments TSH, THIRD GENERATION (test >100.000 UIU/ML code = 2821) [id number] 00:00:00 Test Item Value Reference Range Interpretation Comments TSH, THIRD GENERATION (test >100.000 UIU/ML code = 2821) CBC W/AUTO [id number] 00:00:00 Test Item Value Reference Range Interpretation [...] code = 1015) 298 K/UL CBC W/AUTO [id number] 00:00:00 Test Item Value Reference Range Interpretation [...] code = 1015) 298 K/UL CBC W/AUTO [id number] 00:00:00 Test Item Value Reference Range Interpretation [...] code = 1015) 298 K/UL CBC W/AUTO [id number] 00:00:00 Test Item Value Reference Range Interpretation [...] code = 1015) 298 K/UL CBC W/AUTO [id number] 00:00:00 Test Item Value Reference Range Interpretation [...] code = 1015) 298 K/UL COMPREHENSIVE METABOLIC [id number] 00:00:00 Test Item Value Reference Range Interpretation Comments GLUCOSE (test code = 2217) 228 MG/DL BUN (test code = 2208) 23 MG/DL CREATININE (test code = 2214) 5.99 MG/DL eGFR AMER. (test code 11 ML/MIN/1.73 = 39621) eGFR NON- AMER. (test 10 ML/MIN/1.73 code = 21787) CALC BUN/CREAT (test code = 4 RATIO [...] code = 2219) 24 U/L COMPREHENSIVE METABOLIC [id number] 00:00:00 Test Item Value Reference Range Interpretation Comments GLUCOSE (test code = 2217) 228 MG/DL BUN (test code = 2208) 23 MG/DL CREATININE (test code = 2214) 5.99 MG/DL eGFR AMER. (test code 11 ML/MIN/1.73 = 60838) eGFR NON- AMER. (test 10 ML/MIN/1.73 code = 35206) CALC BUN/CREAT (test code = 4 RATIO [...] (test code = 2219) 24 U/L LIPID [id number] 00:00:00 Test Item Value Reference Range Interpretation Comments CHOLESTEROL (test code = 2210) 335 MG/DL TRIGLYCERIDES (test code = 2232) 446 MG/DL HDL CHOLESTEROL (test code = 73 MG/DL 2220) CALC LDL CHOL (test code = 2237) (NOTE) MG/DL RISK RATIO LDL/HDL (test code = (NOTE) RATIO 2238) LIPID [id number] 00:00:00 Test Item Value Reference Range Interpretation Comments CHOLESTEROL (test code = 2210) 335 MG/DL TRIGLYCERIDES (test code = 2232) 446 MG/DL HDL CHOLESTEROL (test code = 73 MG/DL 2220) CALC LDL CHOL (test code = 2237) (NOTE) MG/DL RISK RATIO LDL/HDL (test code = (NOTE) RATIO 2238) [id number] 00:00:00 Test Item Value Reference Range Interpretation Comments TSH, THIRD GENERATION (test >100.000 UIU/ML code = 2821) [id number] 00:00:00 Test Item Value Reference Range Interpretation Comments TSH, THIRD GENERATION (test >100.000 UIU/ML code = 2821) [id number] 00:00:00 Test Item Value Reference Range Interpretation Comments TSH, THIRD GENERATION (test >100.000 UIU/ML code = 2821) COMPREHENSIVE METABOLIC [id number] 00:00:00 Test Item Value Reference Range Interpretation Comments GLUCOSE (test code = 2217) 228 MG/DL BUN (test code = 2208) 23 MG/DL CREATININE (test code = 2214) 5.99 MG/DL eGFR AMER. (test code 11 ML/MIN/1.73 = 95637) eGFR NON- AMER. (test 10 ML/MIN/1.73 code = 46552) CALC BUN/CREAT (test code = 4 RATIO [...] (test code = 2219) 24 U/L LIPID [id number] 00:00:00 Test Item Value Reference Range Interpretation Comments CHOLESTEROL (test code = 2210) 335 MG/DL TRIGLYCERIDES (test code = 2232) 446 MG/DL HDL CHOLESTEROL (test code = 73 MG/DL 0) CALC LDL CHOL (test code = 2237) (NOTE) MG/DL RISK RATIO LDL/HDL (test code = (NOTE) RATIO 2238) [id number] 00:00:00 Test Item Value Reference Range Interpretation Comments TSH, THIRD GENERATION (test >100.000 UIU/ML code = 2821) [id number] 00:00:00 Test Item Value Reference Range Interpretation Comments TSH, THIRD GENERATION (test >100.000 UIU/ML code = 2821) CBC W/AUTO [id number] 00:00:00 Test Item Value Reference Range Interpretation [...] code = 1015) 298 K/UL CBC W/AUTO [id number] 00:00:00 Test Item Value Reference Range Interpretation [...] code = 1015) 298 K/UL CBC W/AUTO [id number] 00:00:00 Test Item Value Reference Range Interpretation [...] code = 1015) 298 K/UL COMPREHENSIVE METABOLIC [id number] 00:00:00 Test Item Value Reference Range Interpretation Comments GLUCOSE (test code = 2217) 228 MG/DL BUN (test code = 2208) 23 MG/DL CREATININE (test code = 2214) 5.99 MG/DL eGFR AMER. (test code 11 ML/MIN/1.73 = 94255) eGFR NON- AMER. (test 10 ML/MIN/1.73 code = 38134) CALC BUN/CREAT (test code = 4 RATIO [...] code = 2219) 24 U/L COMPREHENSIVE METABOLIC [id number] 00:00:00 Test Item Value Reference Range Interpretation Comments GLUCOSE (test code = 2217) 228 MG/DL BUN (test code = 2208) 23 MG/DL CREATININE (test code = 2214) 5.99 MG/DL eGFR AMER. (test code 11 ML/MIN/1.73 = 08694) eGFR NON- AMER. (test 10 ML/MIN/1.73 code = 70587) CALC BUN/CREAT (test code = 4 RATIO [...] (test code = 2219) 24 U/L LIPID [id number] 00:00:00 Test Item Value Reference Range Interpretation Comments CHOLESTEROL (test code = 2210) 335 MG/DL TRIGLYCERIDES (test code = 2232) 446 MG/DL HDL CHOLESTEROL (test code = 73 MG/DL 2220) CALC LDL CHOL (test code = 2237) (NOTE) MG/DL RISK RATIO LDL/HDL (test code = (NOTE) RATIO 2238) LIPID [id number] 00:00:00 Test Item Value Reference Range Interpretation Comments CHOLESTEROL (test code = 2210) 335 MG/DL TRIGLYCERIDES (test code = 2232) 446 MG/DL HDL CHOLESTEROL (test code = 73 MG/DL 2220) CALC LDL CHOL (test code = 2237) (NOTE) MG/DL RISK RATIO LDL/HDL (test code = (NOTE) RATIO 2238) [id number] 00:00:00 Test Item Value Reference Range Interpretation Comments TSH, THIRD GENERATION (test >100.000 UIU/ML code = 2821) [id number] 00:00:00 Test Item Value Reference Range Interpretation Comments TSH, THIRD GENERATION (test >100.000 UIU/ML code = 2821) [id number] 00:00:00 Test Item Value Reference Range Interpretation Comments TSH, THIRD GENERATION (test >100.000 UIU/ML code = 2821) CBC W/AUTO [id number] 00:00:00 Test Item Value Reference Range Interpretation [...] code = 1015) 298 K/UL CBC W/AUTO [id number] 00:00:00 Test Item Value Reference Range Interpretation [...] code = 1015) 298 K/UL CBC W/AUTO [id number] 00:00:00 Test Item Value Reference Range Interpretation [...] code = 1015) 298 K/UL COMPREHENSIVE METABOLIC [id number] 00:00:00 Test Item Value Reference Range Interpretation Comments GLUCOSE (test code = 2217) 228 MG/DL BUN (test code = 2208) 23 MG/DL CREATININE (test code = 2214) 5.99 MG/DL eGFR AMER. (test code 11 ML/MIN/1.73 = 53846) eGFR NON- AMER. (test 10 ML/MIN/1.73 code = 54101) CALC BUN/CREAT (test code = 4 RATIO [...] code = 2219) 24 U/L COMPREHENSIVE METABOLIC [id number] 00:00:00 Test Item Value Reference Range Interpretation Comments GLUCOSE (test code = 2217) 228 MG/DL BUN (test code = 2208) 23 MG/DL CREATININE (test code = 2214) 5.99 MG/DL eGFR AMER. (test code 11 ML/MIN/1.73 = 54917) eGFR NON- AMER. (test 10 ML/MIN/1.73 code = 88333) CALC BUN/CREAT (test code = 4 RATIO [...] (test code = 2219) 24 U/L LIPID [id number] 00:00:00 Test Item Value Reference Range Interpretation Comments CHOLESTEROL (test code = 2210) 335 MG/DL TRIGLYCERIDES (test code = 2232) 446 MG/DL HDL CHOLESTEROL (test code = 73 MG/DL 0) CALC LDL CHOL (test code = 2237) (NOTE) MG/DL RISK RATIO LDL/HDL (test code = (NOTE) RATIO 2238) LIPID [id number] 00:00:00 Test Item Value Reference Range Interpretation Comments CHOLESTEROL (test code = 2210) 335 MG/DL TRIGLYCERIDES (test code = 2232) 446 MG/DL HDL CHOLESTEROL (test code = 73 MG/DL 2220) CALC LDL CHOL (test code = 2237) (NOTE) MG/DL RISK RATIO LDL/HDL (test code = (NOTE) RATIO 2238) [id number] 00:00:00 Test Item Value Reference Range Interpretation Comments TSH, THIRD GENERATION (test >100.000 UIU/ML code = 2821) [id number] 00:00:00 Test Item Value Reference Range Interpretation Comments TSH, THIRD GENERATION (test >100.000 UIU/ML code = 2821) [id number] 00:00:00 Test Item Value Reference Range Interpretation Comments TSH, THIRD GENERATION (test >100.000 UIU/ML code = 2821) CBC W/AUTO [id number] 00:00:00 Test Item Value Reference Range Interpretation [...] code = 1015) 298 K/UL CBC W/AUTO [id number] 00:00:00 Test Item Value Reference Range Interpretation [...] code = 1015) 298 K/UL CBC W/AUTO [id number] 00:00:00 Test Item Value Reference Range Interpretation [...] code = 1015) 298 K/UL COMPREHENSIVE METABOLIC [id number] 00:00:00 Test Item Value Reference Range Interpretation Comments GLUCOSE (test code = 2217) 228 MG/DL BUN (test code = 2208) 23 MG/DL CREATININE (test code = 2214) 5.99 MG/DL eGFR AMER. (test code 11 ML/MIN/1.73 = 11420) eGFR NON- AMER. (test 10 ML/MIN/1.73 code = 09746) CALC BUN/CREAT (test code = 4 RATIO [...] code = 2219) 24 U/L COMPREHENSIVE METABOLIC [id number] 00:00:00 Test Item Value Reference Range Interpretation Comments GLUCOSE (test code = 2217) 228 MG/DL BUN (test code = 2208) 23 MG/DL CREATININE (test code = 2214) 5.99 MG/DL eGFR AMER. (test code 11 ML/MIN/1.73 = 81362) eGFR NON- AMER. (test 10 ML/MIN/1.73 code = 92754) CALC BUN/CREAT (test code = 4 RATIO [...] (test code = 2219) 24 U/L LIPID [id number] 00:00:00 Test Item Value Reference Range Interpretation Comments CHOLESTEROL (test code = 2210) 335 MG/DL TRIGLYCERIDES (test code = 2232) 446 MG/DL HDL CHOLESTEROL (test code = 73 MG/DL 2220) CALC LDL CHOL (test code = 2237) (NOTE) MG/DL RISK RATIO LDL/HDL (test code = (NOTE) RATIO 2238) LIPID [id number] 00:00:00 Test Item Value Reference Range Interpretation Comments CHOLESTEROL (test code = 2210) 335 MG/DL TRIGLYCERIDES (test code = 2232) 446 MG/DL HDL CHOLESTEROL (test code = 73 MG/DL 2220) CALC LDL CHOL (test code = 2237) (NOTE) MG/DL RISK RATIO LDL/HDL (test code = (NOTE) RATIO 2238) [id number] 00:00:00 Test Item Value Reference Range Interpretation Comments TSH, THIRD GENERATION (test >100.000 UIU/ML code = 2821) [id number] 00:00:00 Test Item Value Reference Range Interpretation Comments TSH, THIRD GENERATION (test >100.000 UIU/ML code = 2821) [id number] 00:00:00 Test Item Value Reference Range Interpretation Comments TSH, THIRD GENERATION (test >100.000 UIU/ML code = 2821) CBC W/AUTO [id number] 00:00:00 Test Item Value Reference Range Interpretation [...] code = 1015) 298 K/UL CBC W/AUTO [id number] 00:00:00 Test Item Value Reference Range Interpretation [...] code = 1015) 298 K/UL CBC W/AUTO [id number] 00:00:00 Test Item Value Reference Range Interpretation [...] code = 1015) 298 K/UL COMPREHENSIVE METABOLIC [id number] 00:00:00 Test Item Value Reference Range Interpretation Comments GLUCOSE (test code = 2217) 228 MG/DL BUN (test code = 2208) 23 MG/DL CREATININE (test code = 2214) 5.99 MG/DL eGFR AMER. (test code 11 ML/MIN/1.73 = 99828) eGFR NON- AMER. (test 10 ML/MIN/1.73 code = 98191) CALC BUN/CREAT (test code = 4 RATIO [...] code = 2219) 24 U/L COMPREHENSIVE METABOLIC [id number] 00:00:00 Test Item Value Reference Range Interpretation Comments GLUCOSE (test code = 2217) 228 MG/DL BUN (test code = 2208) 23 MG/DL CREATININE (test code = 2214) 5.99 MG/DL eGFR AMER. (test code 11 ML/MIN/1.73 = 26840) eGFR NON- AMER. (test 10 ML/MIN/1.73 code = 23468) CALC BUN/CREAT (test code = 4 RATIO [...] (test code = 2219) 24 U/L LIPID [id number] 00:00:00 Test Item Value Reference Range Interpretation Comments CHOLESTEROL (test code = 2210) 335 MG/DL TRIGLYCERIDES (test code = 2232) 446 MG/DL HDL CHOLESTEROL (test code = 73 MG/DL 2220) CALC LDL CHOL (test code = 2237) (NOTE) MG/DL RISK RATIO LDL/HDL (test code = (NOTE) RATIO 2238) LIPID [id number] 00:00:00 Test Item Value Reference Range Interpretation Comments CHOLESTEROL (test code = 2210) 335 MG/DL TRIGLYCERIDES (test code = 2232) 446 MG/DL HDL CHOLESTEROL (test code = 73 MG/DL 2220) CALC LDL CHOL (test code = 2237) (NOTE) MG/DL RISK RATIO LDL/HDL (test code = (NOTE) RATIO 2238) [id number] 00:00:00 Test Item Value Reference Range Interpretation Comments TSH, THIRD GENERATION (test >100.000 UIU/ML code = 2821) [id number] 00:00:00 Test Item Value Reference Range Interpretation Comments TSH, THIRD GENERATION (test >100.000 UIU/ML code = 2821) [id number] 00:00:00 Test Item Value Reference Range Interpretation Comments TSH, THIRD GENERATION (test >100.000 UIU/ML code = 2821) [id number] 00:00:00 Test Item Value Reference Range Interpretation Comments TSH, THIRD GENERATION (test >100.000 UIU/ML code = 2821) [id number] 00:00:00 Test Item Value Reference Range Interpretation Comments TSH, THIRD GENERATION (test >100.000 UIU/ML code = 2821) [id number] 00:00:00 Test Item Value Reference Range Interpretation Comments TSH, THIRD GENERATION (test >100.000 UIU/ML code = 2821) LIPID [id number] 00:00:00 Test Item Value Reference Range Interpretation Comments CHOLESTEROL (test code = 2210) 316 MG/DL TRIGLYCERIDES (test code = 2232) 547 MG/DL HDL CHOLESTEROL (test code = 54 MG/DL 2220) CALC LDL CHOL (test code = 2237) (NOTE) MG/DL RISK RATIO LDL/HDL (test code = (NOTE) RATIO 2238) LIPID [id number] 00:00:00 Test Item Value Reference Range Interpretation Comments CHOLESTEROL (test code = 2210) 316 MG/DL TRIGLYCERIDES (test code = 2232) 547 MG/DL HDL CHOLESTEROL (test code = 54 MG/DL 2220) CALC LDL CHOL (test code = 2237) (NOTE) MG/DL RISK RATIO LDL/HDL (test code = (NOTE) RATIO 2238) [id number] 00:00:00 Test Item Value Reference Range Interpretation Comments TSH, THIRD GENERATION (test >100.000 UIU/ML code = 2821) [id number] 00:00:00 Test Item Value Reference Range Interpretation Comments TSH, THIRD GENERATION (test >100.000 UIU/ML code = 2821) [id number] 00:00:00 Test Item Value Reference Range Interpretation Comments TSH, THIRD GENERATION (test >100.000 UIU/ML code = 2821) LIPID [id number] 00:00:00 Test Item Value Reference Range Interpretation Comments CHOLESTEROL (test code = 2210) 316 MG/DL TRIGLYCERIDES (test code = 2232) 547 MG/DL HDL CHOLESTEROL (test code = 54 MG/DL 2220) CALC LDL CHOL (test code = 2237) (NOTE) MG/DL RISK RATIO LDL/HDL (test code = (NOTE) RATIO 2238) LIPID [id number] 00:00:00 Test Item Value Reference Range Interpretation Comments CHOLESTEROL (test code = 2210) 316 MG/DL TRIGLYCERIDES (test code = 2232) 547 MG/DL HDL CHOLESTEROL (test code = 54 MG/DL 2220) CALC LDL CHOL (test code = 2237) (NOTE) MG/DL RISK RATIO LDL/HDL (test code = (NOTE) RATIO 2238) [id number] 00:00:00 Test Item Value Reference Range Interpretation Comments TSH, THIRD GENERATION (test >100.000 UIU/ML code = 2821) [id number] 00:00:00 Test Item Value Reference Range Interpretation Comments TSH, THIRD GENERATION (test >100.000 UIU/ML code = 2821) [id number] 00:00:00 Test Item Value Reference Range Interpretation Comments TSH, THIRD GENERATION (test >100.000 UIU/ML code = 2821) [id number] 00:00:00 Test Item Value Reference Range Interpretation Comments TSH, THIRD GENERATION (test >100.000 UIU/ML code = 2821) LIPID [id number] 00:00:00 Test Item Value Reference Range Interpretation Comments CHOLESTEROL (test code = 2210) 316 MG/DL TRIGLYCERIDES (test code = 2232) 547 MG/DL HDL CHOLESTEROL (test code = 54 MG/DL 2220) CALC LDL CHOL (test code = 2237) (NOTE) MG/DL RISK RATIO LDL/HDL (test code = (NOTE) RATIO 2238) LIPID [id number] 00:00:00 Test Item Value Reference Range Interpretation Comments CHOLESTEROL (test code = 2210) 316 MG/DL TRIGLYCERIDES (test code = 2232) 547 MG/DL HDL CHOLESTEROL (test code = 54 MG/DL 2220) CALC LDL CHOL (test code = 2237) (NOTE) MG/DL RISK RATIO LDL/HDL (test code = (NOTE) RATIO 2238) [id number] 00:00:00 Test Item Value Reference Range Interpretation Comments TSH, THIRD GENERATION (test >100.000 UIU/ML code = 2821) LIPID [id number] 00:00:00 Test Item Value Reference Range Interpretation Comments CHOLESTEROL (test code = 2210) 316 MG/DL TRIGLYCERIDES (test code = 2232) 547 MG/DL HDL CHOLESTEROL (test code = 54 MG/DL 2220) CALC LDL CHOL (test code = 2237) (NOTE) MG/DL RISK RATIO LDL/HDL (test code = (NOTE) RATIO 2238) [id number] 00:00:00 Test Item Value Reference Range Interpretation Comments TSH, THIRD GENERATION (test >100.000 UIU/ML code = 2821) [id number] 00:00:00 Test Item Value Reference Range Interpretation Comments TSH, THIRD GENERATION (test >100.000 UIU/ML code = 2821) [id number] 00:00:00 Test Item Value Reference Range Interpretation Comments TSH, THIRD GENERATION (test >100.000 UIU/ML code = 2821) LIPID [id number] 00:00:00 Test Item Value Reference Range Interpretation Comments CHOLESTEROL (test code = 2210) 316 MG/DL TRIGLYCERIDES (test code = 2232) 547 MG/DL HDL CHOLESTEROL (test code = 54 MG/DL 2220) CALC LDL CHOL (test code = 2237) (NOTE) MG/DL RISK RATIO LDL/HDL (test code = (NOTE) RATIO 2238) LIPID [id number] 00:00:00 Test Item Value Reference Range Interpretation Comments CHOLESTEROL (test code = 2210) 316 MG/DL TRIGLYCERIDES (test code = 2232) 547 MG/DL HDL CHOLESTEROL (test code = 54 MG/DL 2220) CALC LDL CHOL (test code = 2237) (NOTE) MG/DL RISK RATIO LDL/HDL (test code = (NOTE) RATIO 2238) [id number] 00:00:00 Test Item Value Reference Range Interpretation Comments TSH, THIRD GENERATION (test >100.000 UIU/ML code = 2821) [id number] 00:00:00 Test Item Value Reference Range Interpretation Comments TSH, THIRD GENERATION (test >100.000 UIU/ML code = 2821) [id number] 00:00:00 Test Item Value Reference Range Interpretation Comments TSH, THIRD GENERATION (test >100.000 UIU/ML code = 2821) LIPID [id number] 00:00:00 Test Item Value Reference Range Interpretation Comments CHOLESTEROL (test code = 2210) 316 MG/DL TRIGLYCERIDES (test code = 2232) 547 MG/DL HDL CHOLESTEROL (test code = 54 MG/DL 2220) CALC LDL CHOL (test code = 2237) (NOTE) MG/DL RISK RATIO LDL/HDL (test code = (NOTE) RATIO 2238) LIPID [id number] 00:00:00 Test Item Value Reference Range Interpretation Comments CHOLESTEROL (test code = 2210) 316 MG/DL TRIGLYCERIDES (test code = 2232) 547 MG/DL HDL CHOLESTEROL (test code = 54 MG/DL 2220) CALC LDL CHOL (test code = 2237) (NOTE) MG/DL RISK RATIO LDL/HDL (test code = (NOTE) RATIO 2238) [id number] 00:00:00 Test Item Value Reference Range Interpretation Comments TSH, THIRD GENERATION (test >100.000 UIU/ML code = 2821) [id number] 00:00:00 Test Item Value Reference Range Interpretation Comments TSH, THIRD GENERATION (test >100.000 UIU/ML code = 2821) [id number] 00:00:00 Test Item Value Reference Range Interpretation Comments TSH, THIRD GENERATION (test >100.000 UIU/ML code = 2821) LIPID [id number] 00:00:00 Test Item Value Reference Range Interpretation Comments CHOLESTEROL (test code = 2210) 316 MG/DL TRIGLYCERIDES (test code = 2232) 547 MG/DL HDL CHOLESTEROL (test code = 54 MG/DL 2220) CALC LDL CHOL (test code = 2237) (NOTE) MG/DL RISK RATIO LDL/HDL (test code = (NOTE) RATIO 2238) LIPID [id number] 00:00:00 Test Item Value Reference Range Interpretation Comments CHOLESTEROL (test code = 2210) 316 MG/DL TRIGLYCERIDES (test code = 2232) 547 MG/DL HDL CHOLESTEROL (test code = 54 MG/DL 2220) CALC LDL CHOL (test code = 2237) (NOTE) MG/DL RISK RATIO LDL/HDL (test code = (NOTE) RATIO 2238) [id number] 00:00:00 Test Item Value Reference Range Interpretation Comments TSH, THIRD GENERATION (test >100.000 UIU/ML code = 2821) [id number] 00:00:00 Test Item Value Reference Range Interpretation Comments TSH, THIRD GENERATION (test >100.000 UIU/ML code = 2821) [id number] 00:00:00 Test Item Value Reference Range Interpretation Comments TSH, THIRD GENERATION (test >100.000 UIU/ML code = 2821) LIPID [id number] 00:00:00 Test Item Value Reference Range Interpretation Comments CHOLESTEROL (test code = 2210) 316 MG/DL TRIGLYCERIDES (test code = 2232) 547 MG/DL HDL CHOLESTEROL (test code = 54 MG/DL 2220) CALC LDL CHOL (test code = 2237) (NOTE) MG/DL RISK RATIO LDL/HDL (test code = (NOTE) RATIO 2238) LIPID [id number] 00:00:00 Test Item Value Reference Range Interpretation [...] code = Normal 762) HEPATITIS B SURFACE [id number] 09:48:00 Test Item Value Reference Range Interpretation [...] (BEAKER) (test code = 1+ few 966) [id number] 05:55:00 Test Item Value Reference Range Interpretation Comments PHOSPHORUS (BEAKER) (test code = 9.2 mg/dL 2.3-4.7 HH 604) Track Helper ID - RA MBASIC METABOLIC [id number] 05:04:00 Test Item Value Reference Range Interpretation [...] S NOT APPLICABLE FOR DIALYSIS PATIEN TS. Track Helper ID - RA MCBC WITH PLATELET COUNT + MANUAL [id number] 04:42:00 Test Item Value Reference Range Interpretation [...] (BEAKER) (test code = 413) BASIC METABOLIC [id number] 03:00:00 Test Item Value Reference Range Interpretation [...] S NOT APPLICABLE FOR DIALYSIS PATIEN TS. Track Helper ID - RA [id number] 02:58:00 Test Item Value Reference Range Interpretation Comments PHOSPHORUS (BEAKER) (test code = 7.4 mg/dL 2.3-4.7 H 604) Track Helper ID - RA MCBC W/PLT COUNT & AUTO [id number] 02:38:00 Test Item Value Reference Range Interpretation [...] PERCENT (BEAKER) (test code = 2801) SARS-COV2/RT-PCR ([facility])2019-12-14 11:10:00 Test Item Value Reference Range Interpretation Comments SARS-COV2/RT-PCR (test code Negative Not Detected, Negative, = 0514933) See external report for linked test SARS-COV-[address] [facility] (test code = 0813959) Negative results do not preclude SARS-CoV-2 infection [...] of the Act.Fact Sheet for Healthcare Pro viders:https://www.[employer]/Documents/Xpert%20Xpress%20SARS%20CoV-2/Fact%20Sh eets/302-3802%40XMMV-YMB-4%20HEALTHCARE%20PROVIDERS%20FACT%20SHEET.pdfFact Sheet for Healthcare Patients:https://www.[employer]/Documents/Xpert%20Xpress%20SARS%20CoV-2/Fact%20Sheets/302-3801%20SARS-COV -2%20PATIENT%20FACT%20SHEET.pdfPerforming Laboratory:[facility], [place] [address]RFDGK METABOLIC [id number] 09:53:00 Test Item Value Reference Range Interpretation [...] S NOT APPLICABLE FOR DIALYSIS PATIEN TS. Track Helper ID - ROSIANGPROTHROMBIN TIME/[id number] 09:39:00 Test Item Value Reference Range Interpretation [...] 0-0 (BEAKER) (test code = 413) URINE [id number] 11:01:00 Test Item Value Reference Range Interpretation Comments CULTURE (BEAKER) ENTEROCOCCUS A 40-49,000 c ol/mL (test code = 1095) FAECALIS Enterococ cus faecalis Ampicillin (test S code = 26) Linezolid (test code S = 40) Nitrofurantoin (test S code = 23) Tetracycline (test R code = 2) Vancomycin (test S code = 13) <10,000 col/mL skin floraHEMOGLOBIN [id number] 00:00:00 Test Item Value Reference Range Interpretation Comments HEMOGLOBIN A1c (test code = 39595) 6.9 % HEMOGLOBIN [id number] 00:00:00 Test Item Value Reference Range Interpretation Comments HEMOGLOBIN A1c (test code = 85200) 6.9 % HEMOGLOBIN [id number] 00:00:00 Test Item Value Reference Range Interpretation Comments HEMOGLOBIN A1c (test code = 09360) 6.9 % LIPID [id number] 00:00:00 Test Item Value Reference Range Interpretation Comments CHOLESTEROL (test code = 2210) 309 MG/DL TRIGLYCERIDES (test code = 2232) 587 MG/DL HDL CHOLESTEROL (test code = 48 MG/DL 2220) CALC LDL CHOL (test code = 2237) (NOTE) MG/DL RISK RATIO LDL/HDL (test code = (NOTE) RATIO 2238) LIPID [id number] 00:00:00 Test Item Value Reference Range Interpretation [...] THYROX. BIND. CAPAC. (test 1.5 code = 49571) T4 (THYROXINE) (test code = <1.2 UG/DL 2819) CORRECTED T4 (FTI) (test code (NOTE) UG/DL = 2820) TSH, THIRD GENERATION (test >100.000 UIU/ML code = 2821) THYROID II PROFILE (TU,T4,FTI,TSH) [ADDED]2019-10-26 00:00:00 Test Item Value Reference Range Interpretation Comments T-UPTAKE (test code = 2817) 18.4 % THYROX. BIND. CAPAC. (test 1.5 code = 29046) T4 (THYROXINE) (test code = <1.2 UG/DL 2819) CORRECTED T4 (FTI) (test code (NOTE) UG/DL = 2820) TSH, THIRD GENERATION (test >100.000 UIU/ML code = 2821) HEMOGLOBIN [id number] 00:00:00 Test Item Value Reference Range Interpretation Comments HEMOGLOBIN A1c (test code = 44894) 6.9 % HEMOGLOBIN [id number] 00:00:00 Test Item Value Reference Range Interpretation Comments HEMOGLOBIN A1c (test code = 18250) 6.9 % HEMOGLOBIN [id number] 00:00:00 Test Item Value Reference Range Interpretation Comments HEMOGLOBIN A1c (test code = 28028) 6.9 % LIPID [id number] 00:00:00 Test Item Value Reference Range Interpretation Comments CHOLESTEROL (test code = 2210) 309 MG/DL TRIGLYCERIDES (test code = 2232) 587 MG/DL HDL CHOLESTEROL (test code = 48 MG/DL 2220) CALC LDL CHOL (test code = 2237) (NOTE) MG/DL RISK RATIO LDL/HDL (test code = (NOTE) RATIO 2238) LIPID [id number] 00:00:00 Test Item Value Reference Range Interpretation [...] THYROX. BIND. CAPAC. (test 1.5 code = 77379) T4 (THYROXINE) (test code = <1.2 UG/DL 2819) CORRECTED T4 (FTI) (test code (NOTE) UG/DL = 2820) TSH, THIRD GENERATION (test >100.000 UIU/ML code = 2821) THYROID II PROFILE (TU,T4,FTI,TSH) [ADDED]2019-10-26 00:00:00 Test Item Value Reference Range Interpretation Comments T-UPTAKE (test code = 2817) 18.4 % THYROX. BIND. CAPAC. (test 1.5 code = 01125) T4 (THYROXINE) (test code = <1.2 UG/DL 2819) CORRECTED T4 (FTI) (test code (NOTE) UG/DL = 2820) TSH, THIRD GENERATION (test >100.000 UIU/ML code = 2821) HEMOGLOBIN [id number] 00:00:00 Test Item Value Reference Range Interpretation Comments HEMOGLOBIN A1c (test code = 69647) 6.9 % HEMOGLOBIN [id number] 00:00:00 Test Item Value Reference Range Interpretation Comments HEMOGLOBIN A1c (test code = 80864) 6.9 % HEMOGLOBIN [id number] 00:00:00 Test Item Value Reference Range Interpretation Comments HEMOGLOBIN A1c (test code = 31634) 6.9 % HEMOGLOBIN [id number] 00:00:00 Test Item Value Reference Range Interpretation Comments HEMOGLOBIN A1c (test code = 28636) 6.9 % HEMOGLOBIN [id number] 00:00:00 Test Item Value Reference Range Interpretation Comments HEMOGLOBIN A1c (test code = 65355) 6.9 % LIPID [id number] 00:00:00 Test Item Value Reference Range Interpretation Comments CHOLESTEROL (test code = 2210) 309 MG/DL TRIGLYCERIDES (test code = 2232) 587 MG/DL HDL CHOLESTEROL (test code = 48 MG/DL 2220) CALC LDL CHOL (test code = 2237) (NOTE) MG/DL RISK RATIO LDL/HDL (test code = (NOTE) RATIO 2238) LIPID [id number] 00:00:00 Test Item Value Reference Range Interpretation [...] THYROX. BIND. CAPAC. (test 1.5 code = 30390) T4 (THYROXINE) (test code = <1.2 UG/DL 2819) CORRECTED T4 (FTI) (test code (NOTE) UG/DL = 2820) TSH, THIRD GENERATION (test >100.000 UIU/ML code = 2821) THYROID II PROFILE (TU,T4,FTI,TSH) [ADDED]2019-10-26 00:00:00 Test Item Value Reference Range Interpretation Comments T-UPTAKE (test code = 2817) 18.4 % THYROX. BIND. CAPAC. (test 1.5 code = 03887) T4 (THYROXINE) (test code = <1.2 UG/DL 2819) CORRECTED T4 (FTI) (test code (NOTE) UG/DL = 2820) TSH, THIRD GENERATION (test >100.000 UIU/ML code = 2821) LIPID [id number] 00:00:00 Test Item Value Reference Range Interpretation [...] THYROX. BIND. CAPAC. (test 1.5 code = 99706) T4 (THYROXINE) (test code = <1.2 UG/DL 2819) CORRECTED T4 (FTI) (test code (NOTE) UG/DL = 2820) TSH, THIRD GENERATION (test >100.000 UIU/ML code = 2821) HEMOGLOBIN [id number] 00:00:00 Test Item Value Reference Range Interpretation Comments HEMOGLOBIN A1c (test code = 24748) 6.9 % HEMOGLOBIN [id number] 00:00:00 Test Item Value Reference Range Interpretation Comments HEMOGLOBIN A1c (test code = 78595) 6.9 % HEMOGLOBIN [id number] 00:00:00 Test Item Value Reference Range Interpretation Comments HEMOGLOBIN A1c (test code = 88529) 6.9 % LIPID [id number] 00:00:00 Test Item Value Reference Range Interpretation Comments CHOLESTEROL (test code = 2210) 309 MG/DL TRIGLYCERIDES (test code = 2232) 587 MG/DL HDL CHOLESTEROL (test code = 48 MG/DL 2220) CALC LDL CHOL (test code = 2237) (NOTE) MG/DL RISK RATIO LDL/HDL (test code = (NOTE) RATIO 2238) LIPID [id number] 00:00:00 Test Item Value Reference Range Interpretation [...] THYROX. BIND. CAPAC. (test 1.5 code = 66388) T4 (THYROXINE) (test code = <1.2 UG/DL 2819) CORRECTED T4 (FTI) (test code (NOTE) UG/DL = 2820) TSH, THIRD GENERATION (test >100.000 UIU/ML code = 2821) THYROID II PROFILE (TU,T4,FTI,TSH) [ADDED][id number] 00:00:00 Test Item Value Reference Range Interpretation Comments T-UPTAKE (test code = 2817) 18.4 % THYROX. BIND. CAPAC. (test 1.5 code = 55604) T4 (THYROXINE) (test code = <1.2 UG/DL 2819) CORRECTED T4 (FTI) (test code (NOTE) UG/DL = 2820) TSH, THIRD GENERATION (test >100.000 UIU/ML code = 2821) HEMOGLOBIN [id number] 00:00:00 Test Item Value Reference Range Interpretation Comments HEMOGLOBIN A1c (test code = 88294) 6.9 % HEMOGLOBIN [id number] 00:00:00 Test Item Value Reference Range Interpretation Comments HEMOGLOBIN A1c (test code = 79980) 6.9 % HEMOGLOBIN [id number] 00:00:00 Test Item Value Reference Range Interpretation Comments HEMOGLOBIN A1c (test code = 93337) 6.9 % LIPID [id number] 00:00:00 Test Item Value Reference Range Interpretation Comments CHOLESTEROL (test code = 2210) 309 MG/DL TRIGLYCERIDES (test code = 2232) 587 MG/DL HDL CHOLESTEROL (test code = 48 MG/DL 2220) CALC LDL CHOL (test code = 2237) (NOTE) MG/DL RISK RATIO LDL/HDL (test code = (NOTE) RATIO 2238) LIPID [id number] 00:00:00 Test Item Value Reference Range Interpretation [...] THYROX. BIND. CAPAC. (test 1.5 code = 05785) T4 (THYROXINE) (test code = <1.2 UG/DL 2819) CORRECTED T4 (FTI) (test code (NOTE) UG/DL = 2820) TSH, THIRD GENERATION (test >100.000 UIU/ML code = 2821) THYROID II PROFILE (TU,T4,FTI,TSH) [ADDED]2019-10-26 00:00:00 Test Item Value Reference Range Interpretation Comments T-UPTAKE (test code = 2817) 18.4 % THYROX. BIND. CAPAC. (test 1.5 code = 44340) T4 (THYROXINE) (test code = <1.2 UG/DL 2819) CORRECTED T4 (FTI) (test code (NOTE) UG/DL = 2820) TSH, THIRD GENERATION (test >100.000 UIU/ML code = 2821) HEMOGLOBIN [id number] 00:00:00 Test Item Value Reference Range Interpretation Comments HEMOGLOBIN A1c (test code = 62857) 6.9 % HEMOGLOBIN [id number] 00:00:00 Test Item Value Reference Range Interpretation Comments HEMOGLOBIN A1c (test code = 99031) 6.9 % HEMOGLOBIN [id number] 00:00:00 Test Item Value Reference Range Interpretation Comments HEMOGLOBIN A1c (test code = 36459) 6.9 % LIPID [id number] 00:00:00 Test Item Value Reference Range Interpretation Comments CHOLESTEROL (test code = 2210) 309 MG/DL TRIGLYCERIDES (test code = 2232) 587 MG/DL HDL CHOLESTEROL (test code = 48 MG/DL 2220) CALC LDL CHOL (test code = 2237) (NOTE) MG/DL RISK RATIO LDL/HDL (test code = (NOTE) RATIO 2238) LIPID [id number] 00:00:00 Test Item Value Reference Range Interpretation [...] THYROX. BIND. CAPAC. (test 1.5 code = 28159) T4 (THYROXINE) (test code = <1.2 UG/DL 2819) CORRECTED T4 (FTI) (test code (NOTE) UG/DL = 2820) TSH, THIRD GENERATION (test >100.000 UIU/ML code = 2821) THYROID II PROFILE (TU,T4,FTI,TSH) [ADDED]2019-10-26 00:00:00 Test Item Value Reference Range Interpretation Comments T-UPTAKE (test code = 2817) 18.4 % THYROX. BIND. CAPAC. (test 1.5 code = 10987) T4 (THYROXINE) (test code = <1.2 UG/DL 2819) CORRECTED T4 (FTI) (test code (NOTE) UG/DL = 2820) TSH, THIRD GENERATION (test >100.000 UIU/ML code = 2821) HEMOGLOBIN [id number] 00:00:00 Test Item Value Reference Range Interpretation Comments HEMOGLOBIN A1c (test code = 35288) 6.9 % HEMOGLOBIN [id number] 00:00:00 Test Item Value Reference Range Interpretation Comments HEMOGLOBIN A1c (test code = 98090) 6.9 % HEMOGLOBIN [id number] 00:00:00 Test Item Value Reference Range Interpretation Comments HEMOGLOBIN A1c (test code = 28184) 6.9 % LIPID [id number] 00:00:00 Test Item Value Reference Range Interpretation Comments CHOLESTEROL (test code = 2210) 309 MG/DL TRIGLYCERIDES (test code = 2232) 587 MG/DL HDL CHOLESTEROL (test code = 48 MG/DL 2220) CALC LDL CHOL (test code = 2237) (NOTE) MG/DL RISK RATIO LDL/HDL (test code = (NOTE) RATIO 2238) LIPID [id number] 00:00:00 Test Item Value Reference Range Interpretation [...] THYROX. BIND. CAPAC. (test 1.5 code = 69342) T4 (THYROXINE) (test code = <1.2 UG/DL 2819) CORRECTED T4 (FTI) (test code (NOTE) UG/DL = 2820) TSH, THIRD GENERATION (test >100.000 UIU/ML code = 2821) THYROID II PROFILE (TU,T4,FTI,TSH) [ADDED]2019-10-26 00:00:00 Test Item Value Reference Range Interpretation Comments T-UPTAKE (test code = 2817) 18.4 % THYROX. BIND. CAPAC. (test 1.5 code = 69281) T4 (THYROXINE) (test code = <1.2 UG/DL 2819) CORRECTED T4 (FTI) (test code (NOTE) UG/DL = 2820) TSH, THIRD GENERATION (test >100.000 UIU/ML code = 2821) HEMOGLOBIN [id number] 09:52:00 Test Item Value Reference Range Interpretation Comments HEMOGLOBIN A1C (BEAKER) (test code = 6.6 % 4.3-6.1 H 368) Track Helper ID - [id number] 09:08:00 Test Item Value Reference Range Interpretation Comments PROSTATE SPECIFIC ANTIGEN (BEAKER) 0.5 ng/mL 0.0-4.0 (test code = 844) Track Helper ID - PITER FLIPID [id number] 08:00:00 Test Item Value Reference Range Interpretation [...] Borderline 130-159 High 160-189 Very High >=190 Track Helper ID - SIMONE CTHYROID II PROFILE (T3U, T4, T7, TSH)2019-07-05 00:00:00 Test Item Value Reference Range Interpretation Comments T-UPTAKE (test code = 2817) 24.3 % THYROX. BIND. CAPAC. (test 1.3 code = 38347) T4 (THYROXINE) (test code = 3.6 UG/DL 2819) CORRECTED T4 (FTI) (test code 2.8 UG/DL = 2820) TSH, THIRD GENERATION (test >100.000 UIU/ML code = 2821) THYROID II PROFILE (T3U, T4, T7, TSH)2019-07-05 00:00:00 Test Item Value Reference Range Interpretation Comments T-UPTAKE (test code = 2817) 24.3 % THYROX. BIND. CAPAC. (test 1.3 code = 79200) T4 (THYROXINE) (test code = 3.6 UG/DL 2819) CORRECTED T4 (FTI) (test code 2.8 UG/DL = 2820) TSH, THIRD GENERATION (test >100.000 UIU/ML code = 2821) THYROID II PROFILE (T3U, T4, T7, TSH)2019-07-05 00:00:00 Test Item Value Reference Range Interpretation Comments T-UPTAKE (test code = 2817) 24.3 % THYROX. BIND. CAPAC. (test 1.3 code = 50540) T4 (THYROXINE) (test code = 3.6 UG/DL 2819) CORRECTED T4 (FTI) (test code 2.8 UG/DL = 2820) TSH, THIRD GENERATION (test >100.000 UIU/ML code = 2821) THYROID II PROFILE (T3U, T4, T7, TSH)2019-07-05 00:00:00 Test Item Value Reference Range Interpretation Comments T-UPTAKE (test code = 2817) 24.3 % THYROX. BIND. CAPAC. (test 1.3 code = 04096) T4 (THYROXINE) (test code = 3.6 UG/DL 2819) CORRECTED T4 (FTI) (test code 2.8 UG/DL = 2820) TSH, THIRD GENERATION (test >100.000 UIU/ML code = 2821) THYROID II PROFILE (T3U, T4, T7, TSH)2019-07-05 00:00:00 Test Item Value Reference Range Interpretation Comments T-UPTAKE (test code = 2817) 24.3 % THYROX. BIND. CAPAC. (test 1.3 code = 73534) T4 (THYROXINE) (test code = 3.6 UG/DL 2819) CORRECTED T4 (FTI) (test code 2.8 UG/DL = 2820) TSH, THIRD GENERATION (test >100.000 UIU/ML code = 2821) THYROID II PROFILE (T3U, T4, T7, TSH)2019-07-05 00:00:00 Test Item Value Reference Range Interpretation Comments T-UPTAKE (test code = 2817) 24.3 % THYROX. BIND. CAPAC. (test 1.3 code = 28640) T4 (THYROXINE) (test code = 3.6 UG/DL 2819) CORRECTED T4 (FTI) (test code 2.8 UG/DL = 2820) TSH, THIRD GENERATION (test >100.000 UIU/ML code = 2821) THYROID II PROFILE (T3U, T4, T7, TSH)2019-07-05 00:00:00 Test Item Value Reference Range Interpretation Comments T-UPTAKE (test code = 2817) 24.3 % THYROX. BIND. CAPAC. (test 1.3 code = 02213) T4 (THYROXINE) (test code = 3.6 UG/DL 2819) CORRECTED T4 (FTI) (test code 2.8 UG/DL = 2820) TSH, THIRD GENERATION (test >100.000 UIU/ML code = 2821) THYROID II PROFILE (T3U, T4, T7, TSH)2019-07-05 00:00:00 Test Item Value Reference Range Interpretation Comments T-UPTAKE (test code = 2817) 24.3 % THYROX. BIND. CAPAC. (test 1.3 code = 31786) T4 (THYROXINE) (test code = 3.6 UG/DL 2819) CORRECTED T4 (FTI) (test code 2.8 UG/DL = 2820) TSH, THIRD GENERATION (test >100.000 UIU/ML code = 2821) THYROID II PROFILE (T3U, T4, T7, TSH)2019-07-05 00:00:00 Test Item Value Reference Range Interpretation Comments T-UPTAKE (test code = 2817) 24.3 % THYROX. BIND. CAPAC. (test 1.3 code = 42135) T4 (THYROXINE) (test code = 3.6 UG/DL 2819) CORRECTED T4 (FTI) (test code 2.8 UG/DL = 2820) TSH, THIRD GENERATION (test >100.000 UIU/ML code = 2821) THYROID II PROFILE (T3U, T4, T7, TSH)2019-07-05 00:00:00 Test Item Value Reference Range Interpretation Comments T-UPTAKE (test code = 2817) 24.3 % THYROX. BIND. CAPAC. (test 1.3 code = 55189) T4 (THYROXINE) (test code = 3.6 UG/DL 2819) CORRECTED T4 (FTI) (test code 2.8 UG/DL = 2820) TSH, THIRD GENERATION (test >100.000 UIU/ML code = 2821) THYROID II PROFILE (T3U, T4, T7, TSH)2019-07-05 00:00:00 Test Item Value Reference Range Interpretation Comments T-UPTAKE (test code = 2817) 24.3 % THYROX. BIND. CAPAC. (test 1.3 code = 77617) T4 (THYROXINE) (test code = 3.6 UG/DL 2819) CORRECTED T4 (FTI) (test code 2.8 UG/DL = 2820) TSH, THIRD GENERATION (test >100.000 UIU/ML code = 2821) THYROID II PROFILE (T3U, T4, T7, TSH)2019-07-05 00:00:00 Test Item Value Reference Range Interpretation Comments T-UPTAKE (test code = 2817) 24.3 % THYROX. BIND. CAPAC. (test 1.3 code = 80919) T4 (THYROXINE) (test code = 3.6 UG/DL 2819) CORRECTED T4 (FTI) (test code 2.8 UG/DL = 2820) TSH, THIRD GENERATION (test >100.000 UIU/ML code = 2821) THYROID II PROFILE (T3U, T4, T7, TSH)2019-07-05 00:00:00 Test Item Value Reference Range Interpretation Comments T-UPTAKE (test code = 2817) 24.3 % THYROX. BIND. CAPAC. (test 1.3 code = 12006) T4 (THYROXINE) (test code = 3.6 UG/DL 2819) CORRECTED T4 (FTI) (test code 2.8 UG/DL = 2820) TSH, THIRD GENERATION (test >100.000 UIU/ML code = 2821) THYROID II PROFILE (T3U, T4, T7, TSH)2019-07-05 00:00:00 Test Item Value Reference Range Interpretation Comments T-UPTAKE (test code = 2817) 24.3 % THYROX. BIND. CAPAC. (test 1.3 code = 89969) T4 (THYROXINE) (test code = 3.6 UG/DL 2819) CORRECTED T4 (FTI) (test code 2.8 UG/DL = 2820) TSH, THIRD GENERATION (test >100.000 UIU/ML code = 2821) THYROID II PROFILE (T3U, T4, T7, TSH)2019-07-05 00:00:00 Test Item Value Reference Range Interpretation Comments T-UPTAKE (test code = 2817) 24.3 % THYROX. BIND. CAPAC. (test 1.3 code = 86979) T4 (THYROXINE) (test code = 3.6 UG/DL 2819) CORRECTED T4 (FTI) (test code 2.8 UG/DL = 2820) TSH, THIRD GENERATION (test >100.000 UIU/ML code = 2821) URINE [id number] 14:35:00 Test Item Value Reference Range Interpretation Comments CULTURE (BEAKER) ENTEROCOCCUS A 10-19,000 c ol/mL (test code = 1095) FAECALIS Enterococ cus faecalis Ampicillin (test S code = 26) Levofloxacin (test S code = 22) Linezolid (test code S = 40) Nitrofurantoin (test S code = 23) Tetracycline (test R code = 2) Vancomycin (test S code = 13) 10-19,000 col/mL skin [id number] 10:31:00 Test Item Value Reference Range Interpretation Comments RPR SCREEN (BEAKER) (test code = Nonreactive Nonreactive 420) U/S, ABDOMINAL, [id number] 16:14:00Reason for Exam:->Kidney transplant evaluation; comment on [...] MDReport Verified Date/Time: 05/23/2019 16:14:42 Reading Location: [address] Radiology Reading Room RAD, CHEST, 2 [id number] 16:02:00 Reason for Exam:->Pre kidney transplant evaluation.FINAL [...] MDReport Verified Date/Time: 05/23/2019 16:02:27 Reading Location: [address] Radiology Reading Room CYTOMEGALOVIRUS ANTIBODY, [id number] 15:17:00 Test Item Value Reference Range Interpretation Comments CYTOMEGALOVIRUS, IGG (BEAKER) Positive Negative, Equivocal A (test code = 3429) CMV IgG Result Interpretation: </= 0.8 Al Negative 0.9-1.0 Al Equivocal >/=1.1 Al PositiveCYTOMEGALOVIRUS ANTIBODY, [id number] 15:17:00 Test Item Value Reference Range Interpretation Comments CYTOMEGALOVIRUS IGM ANTIBODY Negative Negative, Equivocal (BEAKER) (test code = 3437) CMV IgM Result Interpretation: </= 0.8 Al Negative 0.9-1.0 Al Equivocal >/= 1.1 Al PositiveEBV ANTIBODY, [id number] 15:17:00 Test Item Value Reference Range Interpretation Comments NIHARIKA GRAYSON VIRAL CAPSID Positive Negative, Equivocal A ANTIGEN IGG (BEAKER) (test code = 3415) Niharika Grayson Viral Capsid Antigen IgG Result Interpretation: </= 0.8 Al Negative 0.9-1.0 Al Equivocal >/= 1.1 Al PositiveEBV ANTIBODY, [id number] 15:17:00 Test Item Value Reference Range Interpretation Comments NIHARIKA GRAYSON VIRAL CAPSID Negative Negative, Equivocal ANTIGEN IGM (BEAKER) (test code = 3418) Niharika Grayson Viral Capsid Antigen IgM Result Interpretation: </= 0.8 Al Negative 0.9-1.0 Al Equivocal >/= 1.1 Al PositiveVARICELLA ZOSTER ANTIBODY, [id number] 15:17:00 Test Item Value Reference Range Interpretation Comments VARICELLA ZOSTER IGG (AL) (AlignableAKER) 3.4 (test code = 3197) VARICELLA ZOSTER RESULT INTERPRETATIONS: <=0.8 Al Nonreactive: Presumed non- immune to VZV 0.9-1.0Al Equivocal >=1.1 Al Reactive: Presumed immune to VZV HEPATITIS B SURFACE [id number] 12:59:00 Test Item Value Reference Range Interpretation Comments HEPATITIS B SURFACE ANTIBODY 75653.3 mIU/mL <8.0 H ([employer]) (test code = 647) Track Helper ID - ROSIANGHEPATITIS B SURFACE [id number] 12:47:00 Test Item Value Reference Range Interpretation Comments HEPATITIS B SURFACE ANTIGEN (2) Nonreactive Nonreactive ([employer]) (test code = 2585) Track Helper ID - ROSIANGHEPATITIS B CORE ANTIBODY, [id number] 12:47:00 Test Item Value Reference Range Interpretation Comments HEPATITIS B CORE IGM ANTIBODY Nonreactive Nonreactive ([employer]) (test code = 645) Track Helper ID - ROSIANGHEPATITIS C [id number] 12:47:00 Test Item Value Reference Range Interpretation Comments HEPATITIS C ANTIBODY (AlignableAKER) Nonreactive Nonreactive (test code = 367) Track Helper ID - NANCYGHIV-1 ANTIGEN WITH HIV-1/2 [id number] 12:47:00 Test Item Value Reference Range Interpretation Comments HIV-1 ANTIGEN WITH HIV 1\T\2 Nonreactive Nonreactive ANTIBODY (2) ([employer]) (test code = 2586) Track Helper ID - ROSIANGPTH, [id number] 12:03:00 Test Item Value Reference Range Interpretation Comments PARATHYROID HORMONE INTACT 430.9 pg/mL 8.5-72.5 H ([employer]) (test code = 577) Track Helper ID - LACOMPREHENSIVE METABOLIC [id number] 11:56:00 Test Item Value Reference Range Interpretation [...] S NOT APPLICABLE FOR DIALYSIS PATIEN TS. Track Helper ID - LAURIC [id number] 11:55:00 Test Item Value Reference Range Interpretation Comments URIC ACID (BEAKER) (test code = 5.5 mg/dL 2.6-7.2 773) Track Helper ID - [id number] 11:55:00 Test Item Value Reference Range Interpretation Comments PHOSPHORUS (BEAKER) (test code = 5.5 mg/dL 2.3-4.7 H 604) Track Helper ID - LAGAMMA GLUTAMYL TRANSFERASE (GGT)2019-05-23 11:55:00 Test Item Value Reference Range Interpretation Comments GAMMA GLUTAMYL TRANSFERASE (BEAKER) 20 U/L 9-64 (test code = 364) Track Helper ID - LALACTATE DEHYDROGENASE (LDH)2019-05-23 11:55:00 Test Item Value Reference Range Interpretation Comments LACTATE DEHYDROGENASE (BEAKER) (test 249 U/L 125-220 H code = 635) Track Helper ID - LAURINALYSIS W/ [id number] 11:43:00 Test Item Value Reference Range Interpretation [...] < /HPF SOURCE(BEAKER) (test code = 2795) Track Helper ID - [auto]Track Helper ID - techPT/[id number] 11:32:00 Test Item Value Reference Range Interpretation [...] 2.5-3.5 for patients wiht mechanical heart valves.PROTHROMBIN TIME/[id number] 11:31:00 Test Item Value Reference Range Interpretation [...] mechanical heart valves.CBC W/PLT COUNT & AUTO [id number] 11:27:00 Test Item Value Reference Range Interpretation [...] 0-1 PERCENT (BEAKER) (test code = 2801) [id number] 00:00:00 Test Item Value Reference Range Interpretation Comments TSH, THIRD GENERATION (test >100.000 UIU/ML code = 2821) [id number] 00:00:00 Test Item Value Reference Range Interpretation Comments TSH, THIRD GENERATION (test >100.000 UIU/ML code = 2821) [id number] 00:00:00 Test Item Value Reference Range Interpretation Comments TSH, THIRD GENERATION (test >100.000 UIU/ML code = 2821) [id number] 00:00:00 Test Item Value Reference Range Interpretation Comments TSH, THIRD GENERATION (test >100.000 UIU/ML code = 2821) [id number] 00:00:00 Test Item Value Reference Range Interpretation Comments TSH, THIRD GENERATION (test >100.000 UIU/ML code = 2821) [id number] 00:00:00 Test Item Value Reference Range Interpretation Comments TSH, THIRD GENERATION (test >100.000 UIU/ML code = 2821) [id number] 00:00:00 Test Item Value Reference Range Interpretation Comments TSH, THIRD GENERATION (test >100.000 UIU/ML code = 2821) [id number] 00:00:00 Test Item Value Reference Range Interpretation Comments TSH, THIRD GENERATION (test >100.000 UIU/ML code = 2821) [id number] 00:00:00 Test Item Value Reference Range Interpretation Comments TSH, THIRD GENERATION (test >100.000 UIU/ML code = 2821) [id number] 00:00:00 Test Item Value Reference Range Interpretation Comments TSH, THIRD GENERATION (test >100.000 UIU/ML code = 2821) [id number] 00:00:00 Test Item Value Reference Range Interpretation Comments TSH, THIRD GENERATION (test >100.000 UIU/ML code = 2821) [id number] 00:00:00 Test Item Value Reference Range Interpretation Comments TSH, THIRD GENERATION (test >100.000 UIU/ML code = 2821) [id number] 00:00:00 Test Item Value Reference Range Interpretation Comments TSH, THIRD GENERATION (test >100.000 UIU/ML code = 2821) [id number] 00:00:00 Test Item Value Reference Range Interpretation Comments TSH, THIRD GENERATION (test >100.000 UIU/ML code = 2821) [id number] 00:00:00 Test Item Value Reference Range Interpretation Comments TSH, THIRD GENERATION (test >100.000 UIU/ML code = 2821) [id number] 00:00:00 Test Item Value Reference Range Interpretation Comments TSH, THIRD GENERATION (test >100.000 UIU/ML code = 2821) [id number] 00:00:00 Test Item Value Reference Range Interpretation Comments TSH, THIRD GENERATION (test >100.000 UIU/ML code = 2821) [id number] 00:00:00 Test Item Value Reference Range Interpretation Comments TSH, THIRD GENERATION (test >100.000 UIU/ML code = 2821) [id number] 00:00:00 Test Item Value Reference Range Interpretation Comments TSH, THIRD GENERATION (test >100.000 UIU/ML code = 2821) [id number] 00:00:00 Test Item Value Reference Range Interpretation Comments TSH, THIRD GENERATION (test >100.000 UIU/ML code = 2821) [id number] 00:00:00 Test Item Value Reference Range Interpretation Comments TSH, THIRD GENERATION (test >100.000 UIU/ML code = 2821) [id number] 00:00:00 Test Item Value Reference Range Interpretation Comments TSH, THIRD GENERATION (test >100.000 UIU/ML code = 2821) [id number] 00:00:00 Test Item Value Reference Range Interpretation Comments TSH, THIRD GENERATION (test >100.000 UIU/ML code = 2821) LIPID [id number] 00:00:00 Test Item Value Reference Range Interpretation Comments CHOLESTEROL (test code = 2210) 201 MG/DL TRIGLYCERIDES (test code = 2232) 227 MG/DL HDL CHOLESTEROL (test code = 2220) 52 MG/DL CALC LDL CHOL (test code = 2237) 104 MG/DL RISK RATIO LDL/HDL (test code = 1.99 RATIO 2238) LIPID [id number] 00:00:00 Test Item Value Reference Range Interpretation Comments CHOLESTEROL (test code = 2210) 201 MG/DL TRIGLYCERIDES (test code = 2232) 227 MG/DL HDL CHOLESTEROL (test code = 2220) 52 MG/DL CALC LDL CHOL (test code = 2237) 104 MG/DL RISK RATIO LDL/HDL (test code = 1.99 RATIO 2238) [id number] 00:00:00 Test Item Value Reference Range Interpretation Comments TSH, THIRD GENERATION (test >100.000 UIU/ML code = 2821) [id number] 00:00:00 Test Item Value Reference Range Interpretation Comments TSH, THIRD GENERATION (test >100.000 UIU/ML code = 2821) [id number] 00:00:00 Test Item Value Reference Range Interpretation Comments TSH, THIRD GENERATION (test >100.000 UIU/ML code = 2821) LIPID [id number] 00:00:00 Test Item Value Reference Range Interpretation Comments CHOLESTEROL (test code = 2210) 201 MG/DL TRIGLYCERIDES (test code = 2232) 227 MG/DL HDL CHOLESTEROL (test code = 2220) 52 MG/DL CALC LDL CHOL (test code = 2237) 104 MG/DL RISK RATIO LDL/HDL (test code = 1.99 RATIO 2238) LIPID [id number] 00:00:00 Test Item Value Reference Range Interpretation Comments CHOLESTEROL (test code = 2210) 201 MG/DL TRIGLYCERIDES (test code = 2232) 227 MG/DL HDL CHOLESTEROL (test code = 2220) 52 MG/DL CALC LDL CHOL (test code = 2237) 104 MG/DL RISK RATIO LDL/HDL (test code = 1.99 RATIO 2238) [id number] 00:00:00 Test Item Value Reference Range Interpretation Comments TSH, THIRD GENERATION (test >100.000 UIU/ML code = 2821) [id number] 00:00:00 Test Item Value Reference Range Interpretation Comments TSH, THIRD GENERATION (test >100.000 UIU/ML code = 2821) [id number] 00:00:00 Test Item Value Reference Range Interpretation Comments TSH, THIRD GENERATION (test >100.000 UIU/ML code = 2821) LIPID [id number] 00:00:00 Test Item Value Reference Range Interpretation Comments CHOLESTEROL (test code = 2210) 201 MG/DL TRIGLYCERIDES (test code = 2232) 227 MG/DL HDL CHOLESTEROL (test code = 2220) 52 MG/DL CALC LDL CHOL (test code = 2237) 104 MG/DL RISK RATIO LDL/HDL (test code = 1.99 RATIO 2238) LIPID [id number] 00:00:00 Test Item Value Reference Range Interpretation Comments CHOLESTEROL (test code = 2210) 201 MG/DL TRIGLYCERIDES (test code = 2232) 227 MG/DL HDL CHOLESTEROL (test code = 2220) 52 MG/DL CALC LDL CHOL (test code = 2237) 104 MG/DL RISK RATIO LDL/HDL (test code = 1.99 RATIO 2238) LIPID [id number] 00:00:00 Test Item Value Reference Range Interpretation Comments CHOLESTEROL (test code = 2210) 201 MG/DL TRIGLYCERIDES (test code = 2232) 227 MG/DL HDL CHOLESTEROL (test code = 2220) 52 MG/DL CALC LDL CHOL (test code = 2237) 104 MG/DL RISK RATIO LDL/HDL (test code = 1.99 RATIO 2238) [id number] 00:00:00 Test Item Value Reference Range Interpretation Comments TSH, THIRD GENERATION (test >100.000 UIU/ML code = 2821) [id number] 00:00:00 Test Item Value Reference Range Interpretation Comments TSH, THIRD GENERATION (test >100.000 UIU/ML code = 2821) [id number] 00:00:00 Test Item Value Reference Range Interpretation Comments TSH, THIRD GENERATION (test >100.000 UIU/ML code = 2821) [id number] 00:00:00 Test Item Value Reference Range Interpretation Comments TSH, THIRD GENERATION (test >100.000 UIU/ML code = 2821) [id number] 00:00:00 Test Item Value Reference Range Interpretation Comments TSH, THIRD GENERATION (test >100.000 UIU/ML code = 2821) LIPID [id number] 00:00:00 Test Item Value Reference Range Interpretation Comments CHOLESTEROL (test code = 2210) 201 MG/DL TRIGLYCERIDES (test code = 2232) 227 MG/DL HDL CHOLESTEROL (test code = 2220) 52 MG/DL CALC LDL CHOL (test code = 2237) 104 MG/DL RISK RATIO LDL/HDL (test code = 1.99 RATIO 2238) LIPID [id number] 00:00:00 Test Item Value Reference Range Interpretation Comments CHOLESTEROL (test code = 2210) 201 MG/DL TRIGLYCERIDES (test code = 2232) 227 MG/DL HDL CHOLESTEROL (test code = 2220) 52 MG/DL CALC LDL CHOL (test code = 2237) 104 MG/DL RISK RATIO LDL/HDL (test code = 1.99 RATIO 2238) [id number] 00:00:00 Test Item Value Reference Range Interpretation Comments TSH, THIRD GENERATION (test >100.000 UIU/ML code = 2821) [id number] 00:00:00 Test Item Value Reference Range Interpretation Comments TSH, THIRD GENERATION (test >100.000 UIU/ML code = 2821) [id number] 00:00:00 Test Item Value Reference Range Interpretation Comments TSH, THIRD GENERATION (test >100.000 UIU/ML code = 2821) LIPID [id number] 00:00:00 Test Item Value Reference Range Interpretation Comments CHOLESTEROL (test code = 2210) 201 MG/DL TRIGLYCERIDES (test code = 2232) 227 MG/DL HDL CHOLESTEROL (test code = 2220) 52 MG/DL CALC LDL CHOL (test code = 2237) 104 MG/DL RISK RATIO LDL/HDL (test code = 1.99 RATIO 2238) LIPID [id number] 00:00:00 Test Item Value Reference Range Interpretation Comments CHOLESTEROL (test code = 2210) 201 MG/DL TRIGLYCERIDES (test code = 2232) 227 MG/DL HDL CHOLESTEROL (test code = 2220) 52 MG/DL CALC LDL CHOL (test code = 2237) 104 MG/DL RISK RATIO LDL/HDL (test code = 1.99 RATIO 2238) [id number] 00:00:00 Test Item Value Reference Range Interpretation Comments TSH, THIRD GENERATION (test >100.000 UIU/ML code = 2821) [id number] 00:00:00 Test Item Value Reference Range Interpretation Comments TSH, THIRD GENERATION (test >100.000 UIU/ML code = 2821) [id number] 00:00:00 Test Item Value Reference Range Interpretation Comments TSH, THIRD GENERATION (test >100.000 UIU/ML code = 2821) LIPID [id number] 00:00:00 Test Item Value Reference Range Interpretation Comments CHOLESTEROL (test code = 2210) 201 MG/DL TRIGLYCERIDES (test code = 2232) 227 MG/DL HDL CHOLESTEROL (test code = 2220) 52 MG/DL CALC LDL CHOL (test code = 2237) 104 MG/DL RISK RATIO LDL/HDL (test code = 1.99 RATIO 2238) LIPID [id number] 00:00:00 Test Item Value Reference Range Interpretation Comments CHOLESTEROL (test code = 2210) 201 MG/DL TRIGLYCERIDES (test code = 2232) 227 MG/DL HDL CHOLESTEROL (test code = 2220) 52 MG/DL CALC LDL CHOL (test code = 2237) 104 MG/DL RISK RATIO LDL/HDL (test code = 1.99 RATIO 2238) [id number] 00:00:00 Test Item Value Reference Range Interpretation Comments TSH, THIRD GENERATION (test >100.000 UIU/ML code = 2821) [id number] 00:00:00 Test Item Value Reference Range Interpretation Comments TSH, THIRD GENERATION (test >100.000 UIU/ML code = 2821) [id number] 00:00:00 Test Item Value Reference Range Interpretation Comments TSH, THIRD GENERATION (test >100.000 UIU/ML code = 2821) LIPID [id number] 00:00:00 Test Item Value Reference Range Interpretation Comments CHOLESTEROL (test code = 2210) 201 MG/DL TRIGLYCERIDES (test code = 2232) 227 MG/DL HDL CHOLESTEROL (test code = 2220) 52 MG/DL CALC LDL CHOL (test code = 2237) 104 MG/DL RISK RATIO LDL/HDL (test code = 1.99 RATIO 2238) LIPID [id number] 00:00:00 Test Item Value Reference Range Interpretation Comments CHOLESTEROL (test code = 2210) 201 MG/DL TRIGLYCERIDES (test code = 2232) 227 MG/DL HDL CHOLESTEROL (test code = 2220) 52 MG/DL CALC LDL CHOL (test code = 2237) 104 MG/DL RISK RATIO LDL/HDL (test code = 1.99 RATIO 2238) [id number] 00:00:00 Test Item Value Reference Range Interpretation Comments TSH, THIRD GENERATION (test >100.000 UIU/ML code = 2821) [id number] 00:00:00 Test Item Value Reference Range Interpretation Comments TSH, THIRD GENERATION (test >100.000 UIU/ML code = 2821) [id number] 00:00:00 Test Item Value Reference Range Interpretation Comments TSH, THIRD GENERATION (test >100.000 UIU/ML code = 2821) COMPREHENSIVE METABOLIC [id number] 00:00:00 Test Item Value Reference Range Interpretation Comments GLUCOSE (test code = 2217) 103 MG/DL BUN (test code = 2208) 35 MG/DL CREATININE (test code = 2214) 6.37 MG/DL eGFR AMER. (test code 11 ML/MIN/1.73 = 01878) eGFR NON- AMER. (test 9 ML/MIN/1.73 code = 86094) CALC BUN/CREAT (test code = 5 RATIO [...] code = 2219) 10 U/L COMPREHENSIVE METABOLIC [id number] 00:00:00 Test Item Value Reference Range Interpretation Comments GLUCOSE (test code = 2217) 103 MG/DL BUN (test code = 2208) 35 MG/DL CREATININE (test code = 2214) 6.37 MG/DL eGFR AMER. (test code 11 ML/MIN/1.73 = 79515) eGFR NON- AMER. (test 9 ML/MIN/1.73 code = 52337) CALC BUN/CREAT (test code = 5 RATIO [...] (test code = 2219) 10 U/L LIPID [id number] 00:00:00 Test Item Value Reference Range Interpretation Comments CHOLESTEROL (test code = 2210) 240 MG/DL TRIGLYCERIDES (test code = 2232) 395 MG/DL HDL CHOLESTEROL (test code = 2220) 55 MG/DL CALC LDL CHOL (test code = 2237) 106 MG/DL RISK RATIO LDL/HDL (test code = 1.93 RATIO 2238) LIPID [id number] 00:00:00 Test Item Value Reference Range Interpretation Comments CHOLESTEROL (test code = 2210) 240 MG/DL TRIGLYCERIDES (test code = 2232) 395 MG/DL HDL CHOLESTEROL (test code = 2220) 55 MG/DL CALC LDL CHOL (test code = 2237) 106 MG/DL RISK RATIO LDL/HDL (test code = 1.93 RATIO 2238) CBC W/AUTO [id number] 00:00:00 Test Item Value Reference Range Interpretation [...] code = 1015) 327 K/UL CBC W/AUTO [id number] 00:00:00 Test Item Value Reference Range Interpretation [...] code = 1015) 327 K/UL CBC W/AUTO [id number] 00:00:00 Test Item Value Reference Range Interpretation [...] (test code = 1015) 327 K/UL HEMOGLOBIN [id number] 00:00:00 Test Item Value Reference Range Interpretation Comments HEMOGLOBIN A1c (test code = 08334) 6.2 % HEMOGLOBIN [id number] 00:00:00 Test Item Value Reference Range Interpretation Comments HEMOGLOBIN A1c (test code = 67502) 6.2 % HEMOGLOBIN [id number] 00:00:00 Test Item Value Reference Range Interpretation Comments HEMOGLOBIN A1c (test code = 10506) 6.2 % [id number] 00:00:00 Test Item Value Reference Range Interpretation Comments TSH, THIRD GENERATION (test >100.000 UIU/ML code = 2821) [id number] 00:00:00 Test Item Value Reference Range Interpretation Comments TSH, THIRD GENERATION (test >100.000 UIU/ML code = 2821) [id number] 00:00:00 Test Item Value Reference Range Interpretation Comments TSH, THIRD GENERATION (test >100.000 UIU/ML code = 2821) COMPREHENSIVE METABOLIC [id number] 00:00:00 Test Item Value Reference Range Interpretation Comments GLUCOSE (test code = 2217) 103 MG/DL BUN (test code = 2208) 35 MG/DL CREATININE (test code = 2214) 6.37 MG/DL eGFR AMER. (test code 11 ML/MIN/1.73 = 70462) eGFR NON- AMER. (test 9 ML/MIN/1.73 code = 72598) CALC BUN/CREAT (test code = 5 RATIO [...] code = 2219) 10 U/L COMPREHENSIVE METABOLIC [id number] 00:00:00 Test Item Value Reference Range Interpretation Comments GLUCOSE (test code = 2217) 103 MG/DL BUN (test code = 2208) 35 MG/DL CREATININE (test code = 2214) 6.37 MG/DL eGFR AMER. (test code 11 ML/MIN/1.73 = 26944) eGFR NON- AMER. (test 9 ML/MIN/1.73 code = 79605) CALC BUN/CREAT (test code = 5 RATIO [...] (test code = 2219) 10 U/L LIPID [id number] 00:00:00 Test Item Value Reference Range Interpretation Comments CHOLESTEROL (test code = 2210) 240 MG/DL TRIGLYCERIDES (test code = 2232) 395 MG/DL HDL CHOLESTEROL (test code = 2220) 55 MG/DL CALC LDL CHOL (test code = 2237) 106 MG/DL RISK RATIO LDL/HDL (test code = 1.93 RATIO 2238) LIPID [id number] 00:00:00 Test Item Value Reference Range Interpretation Comments CHOLESTEROL (test code = 2210) 240 MG/DL TRIGLYCERIDES (test code = 2232) 395 MG/DL HDL CHOLESTEROL (test code = 2220) 55 MG/DL CALC LDL CHOL (test code = 2237) 106 MG/DL RISK RATIO LDL/HDL (test code = 1.93 RATIO 2238) CBC W/AUTO [id number] 00:00:00 Test Item Value Reference Range Interpretation [...] code = 1015) 327 K/UL CBC W/AUTO [id number] 00:00:00 Test Item Value Reference Range Interpretation [...] code = 1015) 327 K/UL CBC W/AUTO [id number] 00:00:00 Test Item Value Reference Range Interpretation [...] (test code = 1015) 327 K/UL HEMOGLOBIN [id number] 00:00:00 Test Item Value Reference Range Interpretation Comments HEMOGLOBIN A1c (test code = 16956) 6.2 % HEMOGLOBIN [id number] 00:00:00 Test Item Value Reference Range Interpretation Comments HEMOGLOBIN A1c (test code = 98982) 6.2 % HEMOGLOBIN [id number] 00:00:00 Test Item Value Reference Range Interpretation Comments HEMOGLOBIN A1c (test code = 89163) 6.2 % [id number] 00:00:00 Test Item Value Reference Range Interpretation Comments TSH, THIRD GENERATION (test >100.000 UIU/ML code = 2821) [id number] 00:00:00 Test Item Value Reference Range Interpretation Comments TSH, THIRD GENERATION (test >100.000 UIU/ML code = 2821) [id number] 00:00:00 Test Item Value Reference Range Interpretation Comments TSH, THIRD GENERATION (test >100.000 UIU/ML code = 2821) COMPREHENSIVE METABOLIC [id number] 00:00:00 Test Item Value Reference Range Interpretation Comments GLUCOSE (test code = 2217) 103 MG/DL BUN (test code = 2208) 35 MG/DL CREATININE (test code = 2214) 6.37 MG/DL eGFR AMER. (test code 11 ML/MIN/1.73 = 37974) eGFR NON- AMER. (test 9 ML/MIN/1.73 code = 69545) CALC BUN/CREAT (test code = 5 RATIO [...] code = 2219) 10 U/L COMPREHENSIVE METABOLIC [id number] 00:00:00 Test Item Value Reference Range Interpretation Comments GLUCOSE (test code = 2217) 103 MG/DL BUN (test code = 2208) 35 MG/DL CREATININE (test code = 2214) 6.37 MG/DL eGFR AMER. (test code 11 ML/MIN/1.73 = 41598) eGFR NON- AMER. (test 9 ML/MIN/1.73 code = 81225) CALC BUN/CREAT (test code = 5 RATIO [...] (test code = 2219) 10 U/L LIPID [id number] 00:00:00 Test Item Value Reference Range Interpretation Comments CHOLESTEROL (test code = 2210) 240 MG/DL TRIGLYCERIDES (test code = 2232) 395 MG/DL HDL CHOLESTEROL (test code = 2220) 55 MG/DL CALC LDL CHOL (test code = 2237) 106 MG/DL RISK RATIO LDL/HDL (test code = 1.93 RATIO 2238) LIPID [id number] 00:00:00 Test Item Value Reference Range Interpretation Comments CHOLESTEROL (test code = 2210) 240 MG/DL TRIGLYCERIDES (test code = 2232) 395 MG/DL HDL CHOLESTEROL (test code = 2220) 55 MG/DL CALC LDL CHOL (test code = 2237) 106 MG/DL RISK RATIO LDL/HDL (test code = 1.93 RATIO 2238) COMPREHENSIVE METABOLIC [id number] 00:00:00 Test Item Value Reference Range Interpretation Comments GLUCOSE (test code = 2217) 103 MG/DL BUN (test code = 2208) 35 MG/DL CREATININE (test code = 2214) 6.37 MG/DL eGFR AMER. (test code 11 ML/MIN/1.73 = 58847) eGFR NON- AMER. (test 9 ML/MIN/1.73 code = 11245) CALC BUN/CREAT (test code = 5 RATIO [...] code = 2219) 10 U/L CBC W/AUTO [id number] 00:00:00 Test Item Value Reference Range Interpretation [...] (test code = 1015) 327 K/UL LIPID [id number] 00:00:00 Test Item Value Reference Range Interpretation Comments CHOLESTEROL (test code = 2210) 240 MG/DL TRIGLYCERIDES (test code = 2232) 395 MG/DL HDL CHOLESTEROL (test code = 2220) 55 MG/DL CALC LDL CHOL (test code = 2237) 106 MG/DL RISK RATIO LDL/HDL (test code = 1.93 RATIO 2238) CBC W/AUTO [id number] 00:00:00 Test Item Value Reference Range Interpretation [...] code = 1015) 327 K/UL CBC W/AUTO [id number] 00:00:00 Test Item Value Reference Range Interpretation [...] (test code = 1015) 327 K/UL HEMOGLOBIN [id number] 00:00:00 Test Item Value Reference Range Interpretation Comments HEMOGLOBIN A1c (test code = 46018) 6.2 % HEMOGLOBIN [id number] 00:00:00 Test Item Value Reference Range Interpretation Comments HEMOGLOBIN A1c (test code = 69693) 6.2 % HEMOGLOBIN [id number] 00:00:00 Test Item Value Reference Range Interpretation Comments HEMOGLOBIN A1c (test code = 24818) 6.2 % [id number] 00:00:00 Test Item Value Reference Range Interpretation Comments TSH, THIRD GENERATION (test >100.000 UIU/ML code = 2821) [id number] 00:00:00 Test Item Value Reference Range Interpretation Comments TSH, THIRD GENERATION (test >100.000 UIU/ML code = 2821) [id number] 00:00:00 Test Item Value Reference Range Interpretation Comments TSH, THIRD GENERATION (test >100.000 UIU/ML code = 2821) CBC W/AUTO [id number] 00:00:00 Test Item Value Reference Range Interpretation [...] code = 1015) 327 K/UL CBC W/AUTO [id number] 00:00:00 Test Item Value Reference Range Interpretation [...] (test code = 1015) 327 K/UL HEMOGLOBIN [id number] 00:00:00 Test Item Value Reference Range Interpretation Comments HEMOGLOBIN A1c (test code = 71152) 6.2 % HEMOGLOBIN [id number] 00:00:00 Test Item Value Reference Range Interpretation Comments HEMOGLOBIN A1c (test code = 76227) 6.2 % COMPREHENSIVE METABOLIC [id number] 00:00:00 Test Item Value Reference Range Interpretation Comments GLUCOSE (test code = 2217) 103 MG/DL BUN (test code = 2208) 35 MG/DL CREATININE (test code = 2214) 6.37 MG/DL eGFR AMER. (test code 11 ML/MIN/1.73 = 03604) eGFR NON- AMER. (test 9 ML/MIN/1.73 code = 45216) CALC BUN/CREAT (test code = 5 RATIO [...] code = 2219) 10 U/L COMPREHENSIVE METABOLIC [id number] 00:00:00 Test Item Value Reference Range Interpretation Comments GLUCOSE (test code = 2217) 103 MG/DL BUN (test code = 2208) 35 MG/DL CREATININE (test code = 2214) 6.37 MG/DL eGFR AMER. (test code 11 ML/MIN/1.73 = 60828) eGFR NON- AMER. (test 9 ML/MIN/1.73 code = 49634) CALC BUN/CREAT (test code = 5 RATIO [...] BILIRUBIN, TOTAL (test code = 0.2 MG/DL 7) ALKALINE PHOSPHATASE (test 58 U/L code = 2204) AST (test code = 2218) 10 U/L ALT (test code = 2219) 10 U/L [id number] 00:00:00 Test Item Value Reference Range Interpretation Comments TSH, THIRD GENERATION (test >100.000 UIU/ML code = 2821) [id number] 00:00:00 Test Item Value Reference Range Interpretation Comments TSH, THIRD GENERATION (test >100.000 UIU/ML code = 2821) LIPID [id number] 00:00:00 Test Item Value Reference Range Interpretation Comments CHOLESTEROL (test code = 2210) 240 MG/DL TRIGLYCERIDES (test code = 2232) 395 MG/DL HDL CHOLESTEROL (test code = 2220) 55 MG/DL CALC LDL CHOL (test code = 2237) 106 MG/DL RISK RATIO LDL/HDL (test code = 1.93 RATIO 2238) LIPID [id number] 00:00:00 Test Item Value Reference Range Interpretation Comments CHOLESTEROL (test code = 2210) 240 MG/DL TRIGLYCERIDES (test code = 2232) 395 MG/DL HDL CHOLESTEROL (test code = 2220) 55 MG/DL CALC LDL CHOL (test code = 2237) 106 MG/DL RISK RATIO LDL/HDL (test code = 1.93 RATIO 2238) CBC W/AUTO [id number] 00:00:00 Test Item Value Reference Range Interpretation [...] code = 1015) 327 K/UL CBC W/AUTO [id number] 00:00:00 Test Item Value Reference Range Interpretation [...] code = 1015) 327 K/UL CBC W/AUTO [id number] 00:00:00 Test Item Value Reference Range Interpretation [...] (test code = 1015) 327 K/UL HEMOGLOBIN [id number] 00:00:00 Test Item Value Reference Range Interpretation Comments HEMOGLOBIN A1c (test code = 91532) 6.2 % HEMOGLOBIN [id number] 00:00:00 Test Item Value Reference Range Interpretation Comments HEMOGLOBIN A1c (test code = 28931) 6.2 % HEMOGLOBIN [id number] 00:00:00 Test Item Value Reference Range Interpretation Comments HEMOGLOBIN A1c (test code = 93345) 6.2 % [id number] 00:00:00 Test Item Value Reference Range Interpretation Comments TSH, THIRD GENERATION (test >100.000 UIU/ML code = 2821) [id number] 00:00:00 Test Item Value Reference Range Interpretation Comments TSH, THIRD GENERATION (test >100.000 UIU/ML code = 2821) [id number] 00:00:00 Test Item Value Reference Range Interpretation Comments TSH, THIRD GENERATION (test >100.000 UIU/ML code = 2821) COMPREHENSIVE METABOLIC [id number] 00:00:00 Test Item Value Reference Range Interpretation Comments GLUCOSE (test code = 2217) 103 MG/DL BUN (test code = 2208) 35 MG/DL CREATININE (test code = 2214) 6.37 MG/DL eGFR AMER. (test code 11 ML/MIN/1.73 = 58451) eGFR NON- AMER. (test 9 ML/MIN/1.73 code = 90380) CALC BUN/CREAT (test code = 5 RATIO [...] code = 2219) 10 U/L COMPREHENSIVE METABOLIC [id number] 00:00:00 Test Item Value Reference Range Interpretation Comments GLUCOSE (test code = 2217) 103 MG/DL BUN (test code = 2208) 35 MG/DL CREATININE (test code = 2214) 6.37 MG/DL eGFR AMER. (test code 11 ML/MIN/1.73 = 23486) eGFR NON- AMER. (test 9 ML/MIN/1.73 code = 21769) CALC BUN/CREAT (test code = 5 RATIO [...] BILIRUBIN, TOTAL (test code = 0.2 MG/DL 7) ALKALINE PHOSPHATASE (test 58 U/L code = 2204) AST (test code = 2218) 10 U/L ALT (test code = 2219) 10 U/L LIPID [id number] 00:00:00 Test Item Value Reference Range Interpretation Comments CHOLESTEROL (test code = 2210) 240 MG/DL TRIGLYCERIDES (test code = 2232) 395 MG/DL HDL CHOLESTEROL (test code = 2220) 55 MG/DL CALC LDL CHOL (test code = 2237) 106 MG/DL RISK RATIO LDL/HDL (test code = 1.93 RATIO 2238) LIPID [id number] 00:00:00 Test Item Value Reference Range Interpretation Comments CHOLESTEROL (test code = 2210) 240 MG/DL TRIGLYCERIDES (test code = 2232) 395 MG/DL HDL CHOLESTEROL (test code = 2220) 55 MG/DL CALC LDL CHOL (test code = 2237) 106 MG/DL RISK RATIO LDL/HDL (test code = 1.93 RATIO 2238) CBC W/AUTO [id number] 00:00:00 Test Item Value Reference Range Interpretation [...] code = 1015) 327 K/UL CBC W/AUTO [id number] 00:00:00 Test Item Value Reference Range Interpretation [...] code = 1015) 327 K/UL CBC W/AUTO [id number] 00:00:00 Test Item Value Reference Range Interpretation [...] (test code = 1015) 327 K/UL HEMOGLOBIN [id number] 00:00:00 Test Item Value Reference Range Interpretation Comments HEMOGLOBIN A1c (test code = 62310) 6.2 % HEMOGLOBIN [id number] 00:00:00 Test Item Value Reference Range Interpretation Comments HEMOGLOBIN A1c (test code = 39544) 6.2 % HEMOGLOBIN [id number] 00:00:00 Test Item Value Reference Range Interpretation Comments HEMOGLOBIN A1c (test code = 86851) 6.2 % [id number] 00:00:00 Test Item Value Reference Range Interpretation Comments TSH, THIRD GENERATION (test >100.000 UIU/ML code = 2821) [id number] 00:00:00 Test Item Value Reference Range Interpretation Comments TSH, THIRD GENERATION (test >100.000 UIU/ML code = 2821) [id number] 00:00:00 Test Item Value Reference Range Interpretation Comments TSH, THIRD GENERATION (test >100.000 UIU/ML code = 2821) COMPREHENSIVE METABOLIC [id number] 00:00:00 Test Item Value Reference Range Interpretation Comments GLUCOSE (test code = 2217) 103 MG/DL BUN (test code = 2208) 35 MG/DL CREATININE (test code = 2214) 6.37 MG/DL eGFR AMER. (test code 11 ML/MIN/1.73 = 46927) eGFR NON- AMER. (test 9 ML/MIN/1.73 code = 45812) CALC BUN/CREAT (test code = 5 RATIO [...] code = 2219) 10 U/L COMPREHENSIVE METABOLIC [id number] 00:00:00 Test Item Value Reference Range Interpretation Comments GLUCOSE (test code = 2217) 103 MG/DL BUN (test code = 2208) 35 MG/DL CREATININE (test code = 2214) 6.37 MG/DL eGFR AMER. (test code 11 ML/MIN/1.73 = 84684) eGFR NON- AMER. (test 9 ML/MIN/1.73 code = 09398) CALC BUN/CREAT (test code = 5 RATIO [...] (test code = 2219) 10 U/L LIPID [id number] 00:00:00 Test Item Value Reference Range Interpretation Comments CHOLESTEROL (test code = 2210) 240 MG/DL TRIGLYCERIDES (test code = 2232) 395 MG/DL HDL CHOLESTEROL (test code = 2220) 55 MG/DL CALC LDL CHOL (test code = 2237) 106 MG/DL RISK RATIO LDL/HDL (test code = 1.93 RATIO 2238) LIPID [id number] 00:00:00 Test Item Value Reference Range Interpretation Comments CHOLESTEROL (test code = 2210) 240 MG/DL TRIGLYCERIDES (test code = 2232) 395 MG/DL HDL CHOLESTEROL (test code = 2220) 55 MG/DL CALC LDL CHOL (test code = 2237) 106 MG/DL RISK RATIO LDL/HDL (test code = 1.93 RATIO 2238) CBC W/AUTO [id number] 00:00:00 Test Item Value Reference Range Interpretation [...] code = 1015) 327 K/UL CBC W/AUTO [id number] 00:00:00 Test Item Value Reference Range Interpretation [...] code = 1015) 327 K/UL CBC W/AUTO [id number] 00:00:00 Test Item Value Reference Range Interpretation [...] (test code = 1015) 327 K/UL HEMOGLOBIN [id number] 00:00:00 Test Item Value Reference Range Interpretation Comments HEMOGLOBIN A1c (test code = 24830) 6.2 % HEMOGLOBIN [id number] 00:00:00 Test Item Value Reference Range Interpretation Comments HEMOGLOBIN A1c (test code = 77932) 6.2 % HEMOGLOBIN [id number] 00:00:00 Test Item Value Reference Range Interpretation Comments HEMOGLOBIN A1c (test code = 53448) 6.2 % [id number] 00:00:00 Test Item Value Reference Range Interpretation Comments TSH, THIRD GENERATION (test >100.000 UIU/ML code = 2821) [id number] 00:00:00 Test Item Value Reference Range Interpretation Comments TSH, THIRD GENERATION (test >100.000 UIU/ML code = 2821) [id number] 00:00:00 Test Item Value Reference Range Interpretation Comments TSH, THIRD GENERATION (test >100.000 UIU/ML code = 2821) COMPREHENSIVE METABOLIC [id number] 00:00:00 Test Item Value Reference Range Interpretation Comments GLUCOSE (test code = 2217) 103 MG/DL BUN (test code = 2208) 35 MG/DL CREATININE (test code = 2214) 6.37 MG/DL eGFR AMER. (test code 11 ML/MIN/1.73 = 56132) eGFR NON- AMER. (test 9 ML/MIN/1.73 code = 30319) CALC BUN/CREAT (test code = 5 RATIO [...] code = 2219) 10 U/L COMPREHENSIVE METABOLIC [id number] 00:00:00 Test Item Value Reference Range Interpretation Comments GLUCOSE (test code = 2217) 103 MG/DL BUN (test code = 2208) 35 MG/DL CREATININE (test code = 2214) 6.37 MG/DL eGFR AMER. (test code 11 ML/MIN/1.73 = 51147) eGFR NON- AMER. (test 9 ML/MIN/1.73 code = 98789) CALC BUN/CREAT (test code = 5 RATIO [...] (test code = 2219) 10 U/L LIPID [id number] 00:00:00 Test Item Value Reference Range Interpretation Comments CHOLESTEROL (test code = 2210) 240 MG/DL TRIGLYCERIDES (test code = 2232) 395 MG/DL HDL CHOLESTEROL (test code = 2220) 55 MG/DL CALC LDL CHOL (test code = 2237) 106 MG/DL RISK RATIO LDL/HDL (test code = 1.93 RATIO 2238) LIPID [id number] 00:00:00 Test Item Value Reference Range Interpretation Comments CHOLESTEROL (test code = 2210) 240 MG/DL TRIGLYCERIDES (test code = 2232) 395 MG/DL HDL CHOLESTEROL (test code = 2220) 55 MG/DL CALC LDL CHOL (test code = 2237) 106 MG/DL RISK RATIO LDL/HDL (test code = 1.93 RATIO 2238) CBC W/AUTO [id number] 00:00:00 Test Item Value Reference Range Interpretation [...] code = 1015) 327 K/UL CBC W/AUTO [id number] 00:00:00 Test Item Value Reference Range Interpretation [...] code = 1015) 327 K/UL CBC W/AUTO [id number] 00:00:00 Test Item Value Reference Range Interpretation [...] (test code = 1015) 327 K/UL HEMOGLOBIN [id number] 00:00:00 Test Item Value Reference Range Interpretation Comments HEMOGLOBIN A1c (test code = 27142) 6.2 % HEMOGLOBIN [id number] 00:00:00 Test Item Value Reference Range Interpretation Comments HEMOGLOBIN A1c (test code = 89862) 6.2 % HEMOGLOBIN [id number] 00:00:00 Test Item Value Reference Range Interpretation Comments HEMOGLOBIN A1c (test code = 48109) 6.2 % [id number] 00:00:00 Test Item Value Reference Range Interpretation Comments TSH, THIRD GENERATION (test >100.000 UIU/ML code = 2821) [id number] 00:00:00 Test Item Value Reference Range Interpretation Comments TSH, THIRD GENERATION (test >100.000 UIU/ML code = 2821) [id number] 00:00:00 Test Item Value Reference Range Interpretation Comments TSH, THIRD GENERATION (test >100.000 UIU/ML code = 2821)
--- NOTE | 2022-10-15 18:11 | RAD REPORT ---
EXAM DESCRIPTION: RAD - Chest Single View - 10/15/2022 6:03 pm CLINICAL HISTORY: MALAISE Chest pain. COMPARISON: <Comparisons> FINDINGS: Portable technique limits examination quality. Mild interstitial pulmonary edema suspected. The heart is mildly enlarged in size. No displaced fract ures. IMPRESSION: Mild CHF.
[2022-10-15 18:22] LABS: Absolute Lymphocytes (CBC) 0.7 K/uL (0.7-4.9); Hematocrit 31.7 % (39.6-49.0); Lymphocytes % 9.9 % (15.3-44.8); MPV 7.7 fL (7.6-11.3); RBC Red Blood Cell Count 3.14 M/uL (4.33-5.43)
[2022-10-15 18:28] LABS: Blood Morphology Comment NOT SEEN (NOT SEEN); Platelet Estimate ADEQ; White Blood Cell Scan OK (OK)
[2022-10-15 18:34] LABS: Protime INR 0.85
[2022-10-15 18:44] LABS: Albumin 3.3 g/dL (3.4-5.0); Bilirubin Direct 0.1 mg/dL (0-0.2); Bilirubin Indirect, Calculated 0.2 mg/dL (0.2-0.8); Bilirubin Total 0.3 mg/dL (0.2-1.0); Potassium 5.2 mEq/L (3.5-5.1); Protein, Total 6.9 g/dL (6.4-8.2); Troponin High Sensitivity 24.4 pg/mL (<58.9)
[2022-10-15 18:46] LABS: SARS-CoV-2 Antigen Rapid Res Negative (Negative)
--- NOTE | 2022-10-15 18:59 | ER ---
Nurse's Notes [facility] Name: Alejandro Dunbar Age: 57 yrs Sex: Male : 1965 Arrival Date: 10/15/2022 Time: 17:35 Bed 8 Private MD: Diagnosis: Fever of unknown origin, focal neurodeficit now resolved, generalized weakness Presentation: 10/15 17:30 Chief complaint: EMS states: Patient here for dizziness and general weakness that db started today. Started new medication for Shingles on abdomen. rash to abdomen. Coronavirus screen: Vaccine status: Patient reports receiving the 2nd dose of the covid vaccine. Client denies travel out of the [place] in the last 14 days. At this time, the client does not indicate any symptoms associated with coronavirus-19. Ebola Screen: Patient negative for fever greater than or equal to 101.5 degrees Fahrenheit, and additional compatible Ebola Virus Disease symptoms Patient denies exposure to infectious person. Patient denies travel to an Ebola-affected area in the 21 days before illness onset. No symptoms or risks identified at this time. Initial Sepsis Screen: Does the patient meet any 2 criteria? No. Patient's initial sepsis screen is negative. Does the patient have a suspected source of infection? No. Patient's initial sepsis screen is negative. Risk Assessment: Do you want to hurt yourself or someone else? Patient reports no desire to harm self or others. Onset of symptoms was October 15, 2022. 17:30 Method Of Arrival: EMS: [facility] db 17:30 Acuity: KERRI 2 db Triage Assessment: 17:30 General: Appears in no apparent distress. comfortable, Behavior is calm, cooperative. db Pain: Denies pain. Neuro: No deficits noted. Level of Consciousness is awake, alert, obeys commands, Oriented to person, place, time, situation, Speech is normal. Respiratory: No deficits noted. Airway is patent Respiratory effort is even, unlabored, Respiratory pattern is regular, symmetrical. Derm: Reports dialysis port to left arm. Rash to abdomen. Historical: - PMHx: 17:43 Diabetes - NIDDM; Dialysis; High Cholesterol; Hypothyroidism; Hypertension; db - PSHx: 17:43 tracheostomy; db - Immunization history:: Adult Immunizations unknown, Client reports receiving the 2nd dose of the Covid vaccine. - Social history:: Smoking status: Patient denies any tobacco usage or history of. Patient/guardian denies using alcohol. Screenin:44 [facility] ED Fall Risk Assessment (Adult) History of falling in the last 3 months, db including since admission No falls in past 3 months (0 pts) Confusion or Disorientation No (0 pts) Intoxicated or Sedated No (0 pts) Impaired Gait No (0 pts) Mobility Assist Device Used No (0 pt) Altered Elimination No (0 pt) Score/Fall Risk Level 0 - 2 = Low Risk Oriented to surroundings, Maintained a safe environment. Abuse screen: Denies threats or abuse. Denies injuries from another. Nutritional screening: No deficits noted. Tuberculosis screening: No symptoms or risk factors identified. Assessment: 17:44 Reassessment: Patient appears in no apparent distress at this time. Patient and/or db family updated on plan of care and expected duration. Pain level reassessed. Patient is alert, oriented x 3, equal unlabored respirations, skin warm/dry/pink. Reassessment: see triage for initial assessment. General: Appears in no apparent distress. comfortable, Behavior is calm, cooperative. 18:05 Reassessment: Code stroke called. db 18:13 Neuro: Level of Consciousness is awake, alert, obeys commands, Oriented to person, db place, time, situation. 18:15 Reassessment: PATIENT IN CT. db Vital Signs: 17:30 BP 153 / 72; Pulse 82; Resp 18; Temp 100.2(O); Pulse Ox 95% on R/A; Weight 77 kg; db Height 5 ft. 4 in. ; 17:30 BP 153 / 72; Pulse 67; Resp 16; Pulse Ox 98% on R/A; db 19:41 BP 145 / 78; Pulse 67; Resp 14 S; Temp 98.2(O); Pulse Ox 100% on R/A; as6 17:30 Body Mass Index 29.14 (77.00 kg, 162.56 cm) db Vitals: 17:30 Cardiac Rhythm Assessment Regular. db NIH Stroke Scale Scores: 18:13 NIHSS Score: 2 db ED Course: 17:39 Patient arrived in ED. db 17:40 Elmo Mosqueda MD is Attending Physician. sp3 17:42 Triage completed. db 17:43 Arm band placed on Patient placed in an exam room. db 17:44 Patient has correct armband on for positive identification. Bed in low position. Call db light in reach. Side rails up X 1. 17:46 Coco Polanco, RN is Primary Nurse. db 18:00 EKG done, by ED staff, reviewed by Elmo Mosqueda MD. em1 18:04 XRAY Chest (1 view) In Process Unspecified. EDMS 18:34 CT Stroke Brain w/o Contrast In Process Unspecified. EDMS 18:57 Primitivo Rosario is Hospitalizing Provider. sp3 19:41 No provider procedures requiring assistance completed. Patient admitted, IV remains in as6 place. Administered Medications: 19:05 Drug: Cefepime IVPB 1 grams Route: IVPB; Rate: 200 ml/hr; Infused Over: 30 mins; Site: db right forearm; 19:48 Follow up: Response: No adverse reaction; IV Status: Completed infusion; IV Intake: as6 100ml 19:05 Drug: Acetaminophen PO 650 mg Route: PO; db 19:48 Follow up: Response: No adverse reaction; Temperature is decreased as6 19:41 Drug: vancoMYCIN IVPB 500 mg Route: IVPB; Infused Over: 1 hrs; Site: right forearm; as6 19:48 Follow up: Response: No adverse reaction; IV Status: Completed infusion; IV Intake: as6 100ml Medication: 19:41 VIS not applicable for this client. as6 Intake: 19:48 IV: 100ml; Total: 100ml. as6 19:48 IV: 100ml; Total: 200ml. as6 Outcome: 18:58 Decision to Hospitalize by Provider. sp3 19:42 Condition: stable as6 19:42 Instructed on the need for admit. 19:53 Admitted to Med/surg accompanied by tech, via wheelchair, room 203, with chart, Report as6 called to Lisa GRACE 19:54 Patient left the ED. as6 NIH Stroke Scale - NIH Stroke Score Date: 10/15/2022 Time: 18:13 Total Score = 2 10. Dysarthria (speech clarity - read or repeat words) - 0(Normal) 11. Extinction and Inattention (visual/tactile/auditory/spatial/personal) - 0(No abnormality) 1a. Level of Consciousness (LOC) - 0(Alert) 1b. Level of Consciousness (LOC) (Month \T\ Age) - 0(Both) 1c. LOC Commands (Open \T\ Closes Eyes/Vertical Lathe Operator) - 0(Both) 2. Best Gaze (Lateral Gaze Paresis) - 0(Normal) 3. Visual Field Loss - 1(Partial hemianopia) 4. Facial Palsy - 0(Normal) 5a. Left Arm: Motor (10-second hold) - 0(No drift) 5b. Right Arm: Motor (10-second hold) - 0(No drift) 6a. Left Leg: Motor (5-second hold - always test supine) - 0(No drift) 6b. Right Leg: Motor (5-second hold - always test supine) - 0(No drift) 7. Limb Ataxia (finger/nose \T\ heel/warren - test with eyes open) - 0(Absent) 8. Sensory Loss (pinprick arms/legs/face) - 0(Normal) 9. Best Language: Aphasia (description/naming/reading) - 1(Mild to moderate aphasia) Initials: db Signatures: Dispatcher [employer] Kory Cleveland em1 Elmo Mosqueda MD MD sp3 Kash Hartmann RN RN as6 Coco Polanco RN RN db
--- NOTE | 2022-10-15 18:59 | EDPHYS ---
Physician Documentation [facility] Name: Alejandro Dunbar Age: 57 yrs Sex: Male : 1965 Arrival Date: 10/15/2022 Time: 17:35 Bed 8 Private MD: ED Physician Elmo Mosqueda HPI: 10/15 18:08 This 57 yrs old Male presents to ER via EMS with complaints of General sp3 Weakness, Dizziness. 18:08 57-year-old male history of diabetes, hemodialysis Wednesday with last sp3 dialysis yesterday, hyperlipidemia, recent shingles being treated with antiviral, now presents to the ED with chief complaint generalized weakness and difficulty talking with some slurred speech that started this morning. No exact time can be pin down. Patient lives with his brother in a private residence. Denies any trauma or any other changes in his medications. Review of systems negative for fever, chest pain, shortness of breath, headache, abdominal pain, any new rash, motor weakness, or change in sensations.. Historical: - PMHx: 17:43 Diabetes - NIDDM; Dialysis; High Cholesterol; Hypothyroidism; Hypertension; db - PSHx: 17:43 tracheostomy; db - Immunization history:: Adult Immunizations unknown, Client reports receiving the 2nd dose of the Covid vaccine. - Social history:: Smoking status: Patient denies any tobacco usage or history of. Patient/guardian denies using alcohol. ROS: 18:09 Constitutional: Negative for fever, chills, and weight loss, Eyes: Negative for injury, sp3 pain, redness, and discharge, ENT: Negative for injury, pain, and discharge, Neck: Negative for injury, pain, and swelling, Cardiovascular: Negative for chest pain, palpitations, and edema, Respiratory: Negative for shortness of breath, cough, wheezing, and pleuritic chest pain, Abdomen/GI: Negative for abdominal pain, nausea, vomiting, diarrhea, and constipation, MS/Extremity: Negative for injury and deformity, Allergy/Immunology: Negative for hives, rash, and allergies, Endocrine: Negative for neck swelling, polydipsia, polyuria, polyphagia, and marked weight changes. 18:09 All other systems are negative. Exam: 18:10 Constitutional: This is a well developed, well nourished patient who is awake, alert, sp3 and in no acute distress. Head/Face: Normocephalic, atraumatic. Eyes: Pupils equal round and reactive to light, extra-ocular motions intact. Lids and lashes normal. Conjunctiva and sclera are non-icteric and not injected. Cornea within normal limits. Periorbital areas with no swelling, redness, or edema. ENT: Nares patent. No nasal discharge, no septal abnormalities noted. External auditory canals are clear. Oropharynx with no redness, swelling, or masses, exudates, or evidence of obstruction, uvula midline. Mucous membranes moist. Neck: Trachea midline, no thyromegaly or masses palpated, and no cervical lymphadenopathy. Supple, full range of motion without nuchal rigidity, or vertebral point tenderness. No Meningismus. Chest/axilla: Normal chest wall appearance and motion. Nontender with no deformity. No lesions are appreciated. Cardiovascular: Regular rate and rhythm with a normal S1 and S2. No gallops, murmurs, or rubs. Normal PMI, no JVD. No pulse deficits. Respiratory: Lungs have equal breath sounds bilaterally, clear to auscultation and percussion. No rales, rhonchi or wheezes noted. No increased work of breathing, no retractions or nasal flaring. Back: No spinal tenderness. No costovertebral tenderness. Full range of motion. Psych: Awake, alert, with orientation to person, place and time. Behavior, mood, and affect are within normal limits. 18:10 ECG was reviewed by the Attending Physician. EKG demonstrates normal sinus rhythm at 76 bpm with normal intervals, normal QRS, normal axis, nonspecific diffuse ST/T changes without any evidence of acute ischemia. 18:10 Skin: Healing skin lesions and vesicles noted in the left chest/abdomen area consistent with dermatomal pattern.. 18:10 Neuro: Cranial nerves II through XII intact with exception of slurring speech and mild expressive aphasia. No other motor or sensory deficits noted. Gait not assessed. Memory is intact the patient is alert and oriented.. Vital Signs: 17:30 BP 153 / 72; Pulse 82; Resp 18; Temp 100.2(O); Pulse Ox 95% on R/A; Weight 77 kg; db Height 5 ft. 4 in. ; 17:30 BP 153 / 72; Pulse 67; Resp 16; Pulse Ox 98% on R/A; db 19:41 BP 145 / 78; Pulse 67; Resp 14 S; Temp 98.2(O); Pulse Ox 100% on R/A; as6 17:30 Body Mass Index 29.14 (77.00 kg, 162.56 cm) db NIH Stroke Scale Scores: 18:13 NIHSS Score: 2 db MDM: 17:48 Patient medically screened. sp3 18:11 Data reviewed: vital signs, nurses notes, old medical records, lab test result(s), EKG, sp3 radiologic studies. ED course: Code stroke called once I was able to evaluate the patient with a emergency medical services coordinator and elucidate that his primary complaint was neurologic in origin. Patient is in route to CT and we will obtain appropriate work-up including EKG, laboratory values and chest x-ray. Patient is likely not a candidate for tPA but will reevaluate once imaging is back. We will hold on contrast study secondary to dialysis. Noncontrast CT of the head is pending. Likely admit patient for general observation and neurological consult and MRI. Patient also has incidental 100.2 temperature and we will start empiric antibiotics and also obtain a UA.. 10/15 17:42 Order name: Basic Metabolic Panel; Complete Time: 18:58 sp3 10/15 17:42 Order name: CBC with Diff; Complete Time: 18:58 sp3 10/15 17:42 Order name: LFT's; Complete Time: 18:58 sp3 10/15 17:42 Order name: NT PRO-BNP; Complete Time: 18:58 sp3 10/15 17:42 Order name: Troponin HS; Complete Time: 18:58 sp3 10/15 18:11 Order name: Protime (+inr); Complete Time: 18:58 em1 10/15 18:11 Order name: Ptt, Activated; Complete Time: 18:58 em1 10/15 18:14 Order name: Blood Culture Adult (2) sp3 10/15 18:14 Order name: Lactate w/ 2H reflex if indic.; Complete Time: 19:32 sp3 10/15 18:15 Order name: UAM sp3 10/15 18:22 Order name: SARS RAPID; Complete Time: 18:58 sp3 10/15 18:22 Order name: Flu; Complete Time: 19:16 sp3 10/15 18:28 Order name: CBC Smear Scan; Complete Time: 18:58 EDMS 10/15 17:42 Order name: XRAY Chest (1 view); Complete Time: 18:58 sp3 10/15 18:07 Order name: CT Stroke Brain w/o Contrast; Complete Time: 19:16 sp3 10/15 17:42 Order name: EKG; Complete Time: 17:43 sp3 10/15 17:42 Order name: Cardiac monitoring; Complete Time: 17:58 sp3 10/15 17:42 Order name: EKG - Nurse/Tech; Complete Time: 17:58 sp3 10/15 17:42 Order name: IV Saline Lock; Complete Time: 17:58 sp3 10/15 17:42 Order name: Labs collected and sent; Complete Time: 17:58 sp3 10/15 17:42 Order name: O2 Per Protocol; Complete Time: 17:47 sp3 10/15 17:42 Order name: O2 Sat Monitoring; Complete Time: 17:47 sp3 10/15 18:07 Order name: NPO; Complete Time: 18:10 sp3 10/15 18:07 Order name: Stroke Swallow Screen; Complete Time: 19:03 sp3 Administered Medications: 19:05 Drug: Cefepime IVPB 1 grams Route: IVPB; Rate: 200 ml/hr; Infused Over: 30 mins; Site: right forearm; 19:48 Follow up: Response: No adverse reaction; IV Status: Completed infusion; IV Intake: as6 100ml 19:05 Drug: Acetaminophen PO 650 mg Route: PO; 19:48 Follow up: Response: No adverse reaction; Temperature is decreased as6 19:41 Drug: vancoMYCIN IVPB 500 mg Route: IVPB; Infused Over: 1 hrs; Site: right forearm; as6 19:48 Follow up: Response: No adverse reaction; IV Status: Completed infusion; IV Intake: as6 100ml Disposition Summary: 10/15/22 18:58 Hospitalization Ordered Hospitalization Status: Inpatient Admission sp3 Provider: Primitivo Rosario sp3 Location: Telemetry/[facility]Sur (Inpatient) sp3 Condition: Fair sp3 Problem: an acute exacerbation sp3 Symptoms: have worsened sp3 Bed/Room Type: Standard 3 Room Assignment: [facility](10/15/22 19:37) Diagnosis - Fever of unknown origin, focal neurodeficit now resolved, generalized weakness sp3 Forms: - Medication Reconciliation Form sp3 - SBAR form sp3 NIH Stroke Scale - NIH Stroke Score Date: 10/15/2022 Time: 18:13 Total Score = 2 10. Dysarthria (speech clarity - read or repeat words) - 0(Normal) 11. Extinction and Inattention (visual/tactile/auditory/spatial/personal) - 0(No abnormality) 1a. Level of Consciousness (LOC) - 0(Alert) 1b. Level of Consciousness (LOC) (Month \T\ Age) - 0(Both) 1c. LOC Commands (Open \T\ Closes Eyes/Shoe Planner) - 0(Both) 2. Best Gaze (Lateral Gaze Paresis) - 0(Normal) 3. Visual Field Loss - 1(Partial hemianopia) 4. Facial Palsy - 0(Normal) 5a. Left Arm: Motor (10-second hold) - 0(No drift) 5b. Right Arm: Motor (10-second hold) - 0(No drift) 6a. Left Leg: Motor (5-second hold - always test supine) - 0(No drift) 6b. Right Leg: Motor (5-second hold - always test supine) - 0(No drift) 7. Limb Ataxia (finger/nose \T\ heel/warren - test with eyes open) - 0(Absent) 8. Sensory Loss (pinprick arms/legs/face) - 0(Normal) 9. Best Language: Aphasia (description/naming/reading) - 1(Mild to moderate aphasia) Initials: db Signatures: Dispatcher [employer] EDMS Lety Angela RN RN Elmo Patton MD MD sp3 Kash Hartmann RN RN as6 Coco Polanco RN RN Daniella Jennings, JR PANaomie [id number] Corrections: (The following items were deleted from the chart) 18:13 18:11 ED course: Code stroke called once I was able to evaluate the patient sp3 with a emergency medical services coordinator and elucidate that his primary complaint was neurologic in origin. Patient is in route to CT and we will obtain appropriate work-up including EKG, laboratory values and chest x-ray. Patient is likely not a candidate for tPA but will reevaluate once imaging is back. We will hold on contrast study secondary to dialysis. Noncontrast CT of the head is pending. Likely admit patient for general observation and neurological consult and MRI.. sp3 19:37 18:58 sp3 mw
[2022-10-15] MEDS ORDERED: VANCOMYCIN 500 MG/VIAL ONE (19:03)
[2022-10-15] MEDS ORDERED: CEFEPIME 1 GM/VIAL ONE (19:03)
[2022-10-15] MEDS ORDERED: NA CHLORIDE 0.9% 200 ML ONE (19:03)
[2022-10-15] MEDS ORDERED: ACETAMINOPHEN 325 MG TABLET ONE (19:03)
--- NOTE | 2022-10-15 19:10 | RAD REPORT ---
EXAM DESCRIPTION: CT - Ct Stroke Brain Wo Cont - 10/15/2022 6:32 pm CLINICAL HISTORY: STROKE ALERT Headache, drowsiness, CVA COMPARISON: Head Brain Wo Cont dated 06/24/2020 TECHNIQUE: All CT scans are performed using dose optimization technique as appropriate and may inclu de automated exposure control or mA/KV adjustment according to patient size. FINDINGS: No intracranial hemorrhage, hydrocephalus or extra-axial fluid collection.CSF collection i n the left temporal fossa is unchanged.Mild periventricular and deep white matter chronic microvascul ar ischemic changes are noted. Mild generalized brain atrophy. The paranasal sinuses and mastoids are clear. The calvarium is intact. Vertebral atherosclerosis. IMPRESSION: No acute intracranial abnormality. If there is continued clinical concern for CVA, MR imaging of the brain would be recommended. The findings were discussed with Nadeen Ojeda in the emergency room on 10/15/2022 at 6:20 p.m. by vicky santa.
--- NOTE | 2022-10-15 19:40 | P.HP ---
Certification for Inpatient Patient admitted to: Inpatient With expected LOS: >2 Midnights Patient will require the following post-hospital care: None Practitioner: I am a practitioner with admitting privileges, knowledge of patient current condition, hospital course, and medical plan of care. Services: Services provided to patient in accordance with Admission requirements found in Title 42 Section 412.3 of the Code of Federal Regulations Patient History Date of Service: 10/15/22 Primary Care Provider: Karyn Reason for admission: CVA, Fever History of Present Illness: Mr. Philippe Dunbar is a 57-year-old male with a past medical history of non- insulin dependent type 2 diabetes, hyperlipidemia, hypertension, ESRD on HD MWF, and hypothyroidism who presented to the emergency department with complaints of dizziness, slurred speech, and aphasia that started this morning. He cannot pinpoint a definitive time. He states that he was recently started on a new antiviral for his shingles. He denies any other change in medications. Fever, chest pain, shortness of breath, unilateral weakness, decreased sensation. Head CT did not show any acute findings. He was not in the window for TNK. Head and neck CTA were deferred as he is a dialysis patient. Patient was also found to have a temp of 100.2. No significant lab abnormalities. He was started on empiric antibiotics in the emergency department and will be admitted for further evaluation and management. Allergies No Known Allergies Allergy (Verified 06/01/22 00:37) Home medications list reviewed: Yes Home Medications: Hydrocodone/Acetaminophen [Hydrocodone-Acetamin 10-325 mg] 1 tab PO Q6H PRN 06/02/22 Sevelamer Carbonate 1 tab PO TID 06/02/22 Trazodone [Desyrel*] 25 mg PO BEDTIME 06/02/22 Amlodipine Besylate 1 tab PO DAILY #30 tab 06/11/22 Benzonatate [Tessalon Perle*] 100 mg PO TID PRN #30 cap 06/11/22 Cetirizine HCl [Zyrtec*] 10 mg PO DAILY #30 tab 06/11/22 Docusate Sodium 100 mg PO DAILY #30 cap 06/11/22 Ergocalciferol (Vitamin D2) [Vitamin D2] 1 cap PO EVERY 7TH DAY #4 cap 06/11/22 Famotidine [Pepcid*] 20 mg PO DAILY #30 tab 06/11/22 Fluticasone [Flonase 50MCG Nasal [place]*] 2 sprays SERJIO BID #1 btl 06/11/22 Folic Acid 1 mg PO DAILY #30 tab 06/11/22 Gabapentin 100 mg PO BEDTIME #30 cap 06/11/22 Ipratropium/Albuterol Sulfate [Iprat-Albut 0.5-3(2.5) mg/3 ml] 3 ml IH Q6H #120 vial 06/11/22 Levothyroxine Sodium 150 mcg PO DAILY #30 cap 06/11/22 Sennosides [Senna] 1 tab PO BID #60 tab 06/11/22 Sitagliptin Phosphate [Januvia] 1 tab PO DAILY #30 tab 06/11/22 Aspirin Chewable [Aspirin Chewable*] 81 mg PO DAILY #30 tab.chew 09/25/22 Valacyclovir [Valtrex*] 500 mg PO Q24H #14 tab 09/25/22 Albuterol Neb [Proventil 0.083% Neb Soln] 2.5 mg IH [id number] #60 amp 09/28/22 Ipratropium Neb [Atrovent*] 0.5 mg IH [id number] #60 amp 09/28/22 Levothyroxine [Synthroid*] 0.15 mg PO DAILYAC #60 tab 09/28/22 Nebulizer 1 each MC DAILY #1 ea 09/28/22 Nebulizer Accessories [Aeroneb Go] 1 each MC DAILY #1 ea 09/28/22 predniSONE [Prednisone*] 20 mg PO BID #20 tab 09/28/22 Sodium Chloride Tab [Sodium Chloride*] 1 gm PO DAILY #30 tab 09/29/22 - Past Medical/Surgical History Diabetic: Yes -: hypertension -: hypothyroid -: TYPE 2 DIABETES -: Dyslipidemia -: ESRDMWF -: Hypoxic hypercapnic respiratory failure -: Trach with reversal Psychosocial/ Personal History: Patient lives at home with his brother. - Family History Sister -: Diabetes - Social History Smoking Status: Never smoker Alcohol use: No CD- Drugs: No Caffeine use: Yes Place of Residence: Home Review of Systems Neurological: Change in Speech, Other (Dizziness) Physical Examination - Vital Signs Temperature: 98.2 F Blood Pressure: 153/72 Pulse: 67 Respirations: 16 Pulse Ox (%): 98 - Physical Exam General: Alert, In no apparent distress HEENT: Atraumatic, EOMI, Sclerae nonicteric Neck: Supple, 2+ carotid pulse no bruit Respiratory: Clear to auscultation bilaterally, Normal air movement Cardiovascular: Regular rate/rhythm, Normal S1 S2 Gastrointestinal: Normal bowel sounds, No tenderness Musculoskeletal: No tenderness Integumentary: No rashes Neurological: Normal speech, Normal affect - Studies Laboratory Data (last 24 hrs) 10/15/22 18:02: PT 9.4 L, INR 0.85, APTT 25.2 10/15/22 18:02: WBC 7.20, Hgb 10.2 L, Hct 31.7 L, Plt Count 209 10/15/22 18:02: Sodium 134 L, Potassium 5.2 H, BUN 56 H, Creatinine 8.97 H, Glucose 112 H, Total Bilirubin 0.3, AST 12 L, ALT 11 L, Alkaline Phosphatase 70 Microbiology Data (last 24 hrs): 10/15/22 18:26 Nasopharnyx Influenza Type A Antigen Screen - Final 10/15/22 18:26 Nasopharnyx Influenza Type B Antigen Screen - Final Assessment and Plan - Problems (Diagnosis) (1) CVA (cerebral vascular accident) Current Visit: Yes Status: Acute Qualifiers: CVA mechanism: unspecified Qualified Code(s): I63.9 - Cerebral infarction, unspecified (2) Shingles Current Visit: Yes Status: Chronic Qualifiers: Herpes zoster complications: unspecified herpes zoster complication Qualified Code(s): B02.8 - Zoster with other complications (3) Chronic respiratory failure with hypoxia and hypercapnia Current Visit: Yes Status: Chronic (4) DM type 2 (diabetes mellitus, type 2) Current Visit: Yes Status: Chronic Qualifiers: Diabetes mellitus snf insulin use: with long line teamster use Diabetes mellitus complication status: with hyperglycemia Qualified Code(s): E11.65 - Type 2 diabetes mellitus with hyperglycemia; Z79.4 - MCFP (current) use of insulin (5) ESRD (end stage renal disease) on dialysis Current Visit: Yes Status: Chronic (6) Hypothyroidism Current Visit: Yes Status: Chronic Qualifiers: Hypothyroidism type: unspecified Qualified Code(s): E03.9 - Hypothyroidism, unspecified - Plan Patient is admitted for CVA rule out and fever. Obtain MRI stroke protocol and echocardiogram in the morning. Head and neck CTA deferred due to ESRD. Physical and speech therapy consult. Frequent neurologic checks. Consult neurology. Consult nephrology for hemodialysis, last completed on Wednesday. Obtain swallow study. Renal diet if passed. Glucose monitoring and control with sliding scale. Fever resolved after 650 mg of Tylenol. No other SIRS criteria met or source of infection identified. Received Vanco and cefepime in the ED. Blood cultures obtained. We will hold off on additional antibiotic therapy at this time and monitor vitals closely. Discharge Plan: Home Plan to discharge in: Greater than 2 days - Advance Directives Does patient have a Living Will: No Does patient have a Durable POA for Healthcare: No - Code Status/Comfort Care Code Status Assessed: Yes Code Status: Full Code Physician Review: Patient Assessed, Agree with Above Assessment and Plan Critical Care: No Time Spent Managing Pts Care (In Minutes): 50
[2022-10-15] MEDS ORDERED: ACETAMINOPHEN 500 MG TAB PO PRN (20:38)
[2022-10-15] MEDS ORDERED: ALBUTEROL 2.5 MG/3 ML NEB SOL NEB PRN (20:38)
[2022-10-15] MEDS ORDERED: ONDANSETRON 4 MG/2 ML VIAL IV PRN (20:38)
[2022-10-15] MEDS: INSULIN -REGULAR HUMAN 50 UNIT/0.5 ML ML SQ SCH (21:00)
[2022-10-15] MEDS: ATORVASTATIN 20 MG TAB PO SCH (21:39)
[2022-10-16] MEDS: HYDRALAZINE HCL 20 MG/ML VIAL IV PRN (05:22)
[2022-10-16] MEDS: INSULIN -REGULAR HUMAN 50 UNIT/0.5 ML ML SQ SCH ×4 (07:30→20:49)
[2022-10-16 07:32] LABS: Absolute Lymphocytes (CBC) 0.8 K/uL (0.7-4.9); Hematocrit 33.4 % (39.6-49.0); Lymphocytes % 10.3 % (15.3-44.8); MPV 7.8 fL (7.6-11.3); RBC Red Blood Cell Count 3.31 M/uL (4.33-5.43)
[2022-10-16 07:47] LABS: Magnesium 2.2 mg/dL (1.6-2.4); Phosphorus 4.5 mg/dL (2.5-4.9); Potassium 5.1 mEq/L (3.5-5.1)
[2022-10-16] MEDS: AMLODIPINE 10 MG TAB PO SCH (09:25)
[2022-10-16 09:46] LABS: Blood Gas Oxyhemoglobin 92.2 % (94-97); Blood O2 Saturation 93.6 % (92-98.5)
--- NOTE | 2022-10-16 10:30 | P.PN ---
Subjective Date of Service: 10/16/22 Primary Care Provider: Karyn Chief Complaint: Expressive dysphasia It is very difficult to comprehend he presumably has some mixed element of expressive dysphagia Maria D admissions in the past is difficult to understand he is alert responsive mostly [place]ian-speaking not demonstrate any weakness choking Review of Systems is unable to be obtained Physical Examination - Vital Signs Temperature: 97.4 F Blood Pressure: 174/80 Pulse: 67 Respirations: 16 Pulse Ox (%): 94 - Physical Exam General: Alert, Cooperative Respiratory: Clear to auscultation bilaterally Cardiovascular: No edema, Regular rate/rhythm Gastrointestinal: Normal bowel sounds Neurological: Cranial nerves 3-12 intact, Abnormal speech (Expressive dysphagia focal to understand even in [place]ian) External genitalia: No edema - Studies Laboratory Data (last 24 hrs) 10/15/22 18:02: PT 9.4 L, INR 0.85, APTT 25.2 10/15/22 18:02: WBC 7.20, Hgb 10.2 L, Hct 31.7 L, Plt Count 209 10/15/22 18:02: Sodium 134 L, Potassium 5.2 H, BUN 56 H, Creatinine 8.97 H, Glucose 112 H, Total Bilirubin 0.3, AST 12 L, ALT 11 L, Alkaline Phosphatase 70 Microbiology Data (last 24 hrs): 10/15/22 18:26 Nasopharnyx Influenza Type A Antigen Screen - Final 10/15/22 18:26 Nasopharnyx Influenza Type B Antigen Screen - Final Assessment And Plan - Current Problems (Diagnosis) (1) CVA (cerebral vascular accident) Current Visit: Yes Status: Acute Plan: Patient is 57 years of age multiple medical problem being obstructive sleep apnea admitted with expressive dysphagia is end-stage renal disease is on dialysis labs chemistries unremarkable/recently treated for shingles also found to have a temperature of 100.2 No acute changes on brain CT scan chest x-ray mild volume overload MRI of the head and MRA still pending we will to give contrast due to chronic renal failure hemodynamically stable oxygenation satisfactory we will also do a speech evaluation Qualifiers: CVA mechanism: unspecified Qualified Code(s): I63.9 - Cerebral infarction, unspecified Physician Review: Patient Assessed, Agree with Above Assessment and Plan
--- NOTE | 2022-10-16 11:20 | RAD REPORT ---
EXAM DESCRIPTION: MRI - Brain Wo Cont - 10/16/2022 11:08 am CLINICAL HISTORY: expressive aphasia COMPARISON: MRA Head Wo Cont dated 10/16/2022 TECHNIQUE: Sagittal T1-weighted images were obtained along with PD/heavily T2-weighted and T2-FLAIR images. Axial DWI and ADC mapping sequences were also obtained along with coronal heavily T2-weighted images were obtained. FINDINGS: No intracranial hemorrhage, mass or acute infarction. There is no edema or shift of midlin e structures. No extra-axial fluid collections. Signal voids are seen as a normal finding in the yary r intracranial vessels. Mild T2/FLAIR hyperintensities within the subcortical and deep white matter, predominantly frontal lobe. Mild degradation of the diffusion weighted sequence but overall diagnosti c. Left temporal lobe arachnoid cyst. Mastoid air cells and paranasal sinuses are clear. IMPRESSION: No acute intracranial abnormality. Specifically, no evidence of acute infarct. Mild chr onic small vessel ischemic changes .
--- NOTE | 2022-10-16 11:21 | RAD REPORT ---
EXAM DESCRIPTION: MRI - MRA Head Wo Cont - 10/16/2022 11:08 am CLINICAL HISTORY: expressive aphasia CVA COMPARISON: No comparisons FINDINGS: 3D noncontrast [id number] MR angiography of the [place] was performed. No aneurysm, flow-limiting stenosis or vascular malformation is seen. Forward flow seen in codominant vertebral arteries. The visualized dural venous sinuses appear patent. IMPRESSION: No significant flow abnormality of the [place] is identified.
--- NOTE | 2022-10-16 11:24 | RAD REPORT ---
EXAM DESCRIPTION: MRI - MRA Neck Without Cont - 10/16/2022 11:08 am CLINICAL HISTORY: expressive aphasia COMPARISON: No comparisons FINDINGS: 2D [id number] MR angiography of the neck vessels was performed. CAROTID STENOSIS REFERENCE USING NASCET CRITERIA: Mild - <50% stenosis. Moderate - 50-69% stenosis. Severe - 70-94% stenosis. Near occlusion - 95-99% stenosis. Occluded - 100% stenosis. Both internal carotid artery, common carotid artery, and external carotid arteries are patent. The ve rtebral arteries are patent. Note that this was performed without IV contrast due to the patient's po or kidney function. IMPRESSION: No flow limiting arterial stenosis within the neck identified.
--- NOTE | 2022-10-16 14:17 | EKG ---
Test Date: 2022-10-15 Test Time: 17:54:06 Hat Stock Laminating Machine Operator: SCOTT MEASUREMENT RESULTS: Intervals: Rate: 76 DE: 162 QRSD: 88 QT: 376 QTc: 423 [place]: P: 24 DE: 162 QRS: 34 T: 117 INTERPRETIVE STATEMENTS: Normal sinus rhythm ST & T wave abnormality, consider lateral ischemia Abnormal ECG Compared to ECG 09/23/2022 06:25:34 ST (T wave) deviation now present Possible ischemia now present Electronically Signed On 10-16-22 14:16:01 CDT by Joe Al
--- NOTE | 2022-10-16 14:40 | ECHO ---
HEIGHT: 5 ft 4 in WEIGHT: 166 lb 12.8 oz DATE OF STUDY: 10/16/[address]: Daniella Hanson 2-DIMENSIONAL: YES M.MODE: YES DOPPLER: YES COLOR FLOW: YES TDS: YES PORTABLE: YES DEFINITY: NO BUBBLE STUDY: NO DIAGNOSIS: STROKE CARDIAC HISTORY: CATHERIZATION: SURGERY: PROSTHETIC VALVE: PACEMAKER: MEASUREMENTS (cm) DIASTOLIC (NORMALS) SYSTOLIC (NORMALS) IVSd 1.0 (0.6-1.2) LA Diam 4.1 (1.9-4.0) LVEF 56% LVIDd 4.5 (3.5-5.7) LVIDs 3.2 (2.0-3.5) %FS 29% LVPWd 1.1 (0.6-1.2) Ao Diam 2.8 (2.0-3.7) 2 DIMENSIONAL ASSESSMENT: RIGHT ATRIUM: NORMAL LEFT ATRIUM: NORMAL RIGHT VENTRICLE: NORMAL LEFT VENTRICLE: NORMAL TRICUSPID VALVE: MILD TRICUSPID REGURGITATION MITRAL VALVE: MILD MITRAL REGURGITATION PULMONIC VALVE: NORMAL AORTIC VALVE: CALCIFIED, NO AORTIC STENOSIS PERICARDIAL EFFUSION: NONE AORTIC ROOT: NORMAL LEFT VENTRICULAR WALL MOTION: NORMAL. DOPPLER/COLOR FLOW: SEE BELOW. COMMENTS: NORMAL LEFT VENTRICULAR EJECTION FRACTION 55-60% NORMAL WALL MOTION MILD MITRAL REGURGITATION MILD TRICUSPID REGURGITATION TECHNOLOGIST: MAYELIN LOPEZ
--- NOTE | 2022-10-16 19:48 | P.CNS ---
Date of Consult: 10/16/22 Requesting Physician: Justice Gonzales Primary Care Provider: Karyn Chief Complaint: Expressive dysphasia History of Present Illness: 57M w/ PMHx of ESRD 2/2 Htn/DM, on outpt HD MWF, Htn, HLD, DM2 & hypothyroidism who presented to the emergency department with complaints of dizziness, slurred speech, and aphasia, admitted for further eval & mngt. Head CT negative. He had fever 100.2. Started on empiric antibiotics. Allergies No Known Allergies Allergy (Verified 06/01/22 00:37) Home Medications: Hydrocodone/Acetaminophen [Hydrocodone-Acetamin 10-325 mg] 1 tab PO Q6H PRN 06/02/22 Sevelamer Carbonate 1 tab PO TID 06/02/22 Trazodone [Desyrel*] 25 mg PO BEDTIME 06/02/22 Amlodipine Besylate 1 tab PO DAILY #30 tab 06/11/22 Benzonatate [Tessalon Perle*] 100 mg PO TID PRN #30 cap 06/11/22 Cetirizine HCl [Zyrtec*] 10 mg PO DAILY #30 tab 06/11/22 Docusate Sodium 100 mg PO DAILY #30 cap 06/11/22 Ergocalciferol (Vitamin D2) [Vitamin D2] 1 cap PO EVERY 7TH DAY #4 cap 06/11/22 Famotidine [Pepcid*] 20 mg PO DAILY #30 tab 06/11/22 Fluticasone [Flonase 50MCG Nasal [place]*] 2 sprays SERJIO BID #1 btl 06/11/22 Folic Acid 1 mg PO DAILY #30 tab 06/11/22 Gabapentin 100 mg PO BEDTIME #30 cap 06/11/22 Ipratropium/Albuterol Sulfate [Iprat-Albut 0.5-3(2.5) mg/3 ml] 3 ml IH Q6H #120 vial 06/11/22 Levothyroxine Sodium 150 mcg PO DAILY #30 cap 06/11/22 Sennosides [Senna] 1 tab PO BID #60 tab 06/11/22 Sitagliptin Phosphate [Januvia] 1 tab PO DAILY #30 tab 06/11/22 Aspirin Chewable [Aspirin Chewable*] 81 mg PO DAILY #30 tab.chew 09/25/22 Valacyclovir [Valtrex*] 500 mg PO Q24H #14 tab 09/25/22 Albuterol Neb [Proventil 0.083% Neb Soln] 2.5 mg IH [id number] #60 amp 09/28/22 Ipratropium Neb [Atrovent*] 0.5 mg IH [id number] #60 amp 09/28/22 Levothyroxine [Synthroid*] 0.15 mg PO DAILYAC #60 tab 09/28/22 Nebulizer 1 each MC DAILY #1 ea 09/28/22 Nebulizer Accessories [Aeroneb Go] 1 each MC DAILY #1 ea 09/28/22 predniSONE [Prednisone*] 20 mg PO BID #20 tab 09/28/22 Sodium Chloride Tab [Sodium Chloride*] 1 gm PO DAILY #30 tab 09/29/22 - Past Medical/Surgical History Diabetic: Yes -: hypertension -: hypothyroid -: TYPE 2 DIABETES -: Dyslipidemia -: ESRDMWF -: Hypoxic hypercapnic respiratory failure -: Shingles -: Trach with reversal Psychosocial/ Personal History: Patient lives at home with his brother. - Family History Sister Medical History: Diabetes Brother Medical History: Diabetes - Social History Smoking Status: Unknown if ever smoked Alcohol use: Yes CD- Drugs: No Caffeine use: Yes Place of Residence: Home Review of Systems General: Fever, Weakness Eyes: Unremarkable ENT: Unremarkable Respiratory: Unremarkable Cardiovascular: Light Headedness Gastrointestinal: Unremarkable Genitourinary: Unremarkable Musculoskeletal: Unremarkable Integumentary: Unremarkable Neurological: Change in Speech Lymphatics: Unremarkable Physical Examination Temp Pulse Resp BP Pulse Ox 97.4 F 72 17 190/98 H 94 10/16/22 16:00 10/16/22 16:00 10/16/22 16:00 10/16/22 16:00 10/16/22 16:00 General: Other (chronically ill-appearing) HEENT: Atraumatic, Normocephalic Neck: Supple Respiratory: Other (symmetric chest expansion) Cardiovascular: No rubs, No murmurs Gastrointestinal: Soft and benign, No guarding Musculoskeletal: No clubbing Integumentary: No warmth Neurological: Normal tone Lymphatics: No axilla or inguinal lymphadenopathy Urinary: Other (no bladder distention) External genitalia: Deferred Rectal: Deferred Conclusions/Impression: # ESRD presumed to be 2/2 Htn/DM on outpt HD MWF HD tomorrow # Dizziness, slurred speech, aphasia Head CT neg Per other services # Htn Resume home BP meds # Anemia Monitor CBC # Renal osteodystrophy Monitor serum Ca & Phos # DM2 Mngt per primary team # Fever On empiric abx F/u cultures
[2022-10-16] MEDS: ATORVASTATIN 20 MG TAB PO SCH (20:12)
[2022-10-17] MEDS: HYDRALAZINE HCL 20 MG/ML VIAL IV PRN (02:14)
[2022-10-17] MEDS: INSULIN -REGULAR HUMAN 50 UNIT/0.5 ML ML SQ SCH ×4 (07:30→21:00)
[2022-10-17] MEDS: AMLODIPINE 10 MG TAB PO SCH ×2 (08:03→08:42)
[2022-10-17] MEDS ORDERED: CLONIDINE 0.1 MG/PATCH TD SCH (09:00)
[2022-10-17 09:10] LABS: Absolute Lymphocytes (CBC) 0.5 K/uL (0.7-4.9); Hematocrit 34.7 % (39.6-49.0); Lymphocytes % 5.4 % (15.3-44.8); MPV 7.4 fL (7.6-11.3); RBC Red Blood Cell Count 3.44 M/uL (4.33-5.43)
[2022-10-17] MEDS ORDERED: levETIRAcetam 1,000 MG in NA CHLORIDE 0.9% 100 ML IV ONE (09:20)
[2022-10-17 09:43] LABS: Albumin 3.9 g/dL (3.4-5.0); Bilirubin Total 0.4 mg/dL (0.2-1.0); Magnesium 2.3 mg/dL (1.6-2.4); Phosphorus 6.1 mg/dL (2.5-4.9); Protein, Total 7.9 g/dL (6.4-8.2)
[2022-10-17 09:46] LABS: Potassium 6.4 mEq/L (3.5-5.1)
--- NOTE | 2022-10-17 10:03 | P.PN ---
Subjective Date of Service: 10/17/22 Primary Care Provider: Karyn Chief Complaint: Current mental status possible seizure activity This morning on rounding patient was incomprehensible moving all his extremities responsive into the respiratory therapist he does that prior to dialysis Review of Systems is unable to be obtained Physical Examination - Vital Signs Temperature: 97.7 F Blood Pressure: 184/83 Pulse: 102 Respirations: 28 Pulse Ox (%): 97 - Physical Exam General: Unresponsive Respiratory: Clear to auscultation bilaterally Cardiovascular: Other Gastrointestinal: Normal bowel sounds, Soft and benign Assessment And Plan - Current Problems (Diagnosis) (1) CVA (cerebral vascular accident) Current Visit: Yes Status: Acute Plan: . With expressive dysphagia extensive work-up including MRI does not show any evidence of stroke or cerebral thrombosis no evidence of acute infarct be having some seizures gases appear to be venous and has underlying severe hypothyroidism compliant bili underlying obstructive sleep apnea blood pressure elevated add clonidine patch patient's blood gases were satisfactory yesterday mildly hypercapnic Qualifiers: CVA mechanism: unspecified Qualified Code(s): I63.9 - Cerebral infarction, unspecified (2) Seizures Current Visit: Yes Status: Acute Plan: Quite possible that the patient is having seizures cording to her respiratory therapist Kylah he has done this before start him on some Keppra (3) Chronic renal failure Current Visit: Yes Status: Acute Plan: Seen by nephrology he is on hemodialysis and is a little elevated Qualifiers: Chronic kidney disease stage: unspecified stage Qualified Code(s): N18.9 - Chronic kidney disease, unspecified Physician Review: Patient Assessed, Agree with Above Assessment and Plan
[2022-10-17 10:18] LABS: Arterial Blood Carboxyhemoglob 0.8 % (0-1.5); Blood Gas Oxyhemoglobin 53.8 % (94-97); Blood O2 Saturation 55.4 % (92-98.5)
[2022-10-17] MEDS ORDERED: D50W 25 GM/50 ML SYRINGE IV PRN (10:18)
[2022-10-17] MEDS ORDERED: GLUCAGON 1 MG/VIAL IM PRN (10:18)
[2022-10-17] MEDS ORDERED: D50W 25 GM/50 ML SYRINGE IV ONE (10:22)
[2022-10-17] MEDS ORDERED: THIAMINE 200 MG/2 ML INJ IVP ONE ×2 (11:00→12:40)
[2022-10-17] MEDS ORDERED: CALCIUM GLUCONATE 1 GM IVPB 1 GM/50 ML BAG IV ONE (11:00)
[2022-10-17] MEDS ORDERED: LEVOTHYROXINE SODIUM 100 MCG VIAL IV SCH (11:00)
[2022-10-17] MEDS ORDERED: D10W 125 ML IV ONE (11:00)
[2022-10-17] MEDS ORDERED: INSULIN -REGULAR HUMAN 50 UNIT/0.5 ML ML IV ONE (11:00)
[2022-10-17] MEDS ORDERED: SOD POLYSTYREN SUL 15 GM/60 ML UCUP PR ONE (13:00)
[2022-10-17 14:38] LABS: Hepatitis B surface AG Interp. Nonreactive (Nonreactive)
[2022-10-17] MEDS ORDERED: HYDROCORTISONE SUC 100 MG INJ IV ONE (16:44)
[2022-10-17 16:55] LABS: Arterial Blood Carboxyhemoglob 0.4 % (0-1.5); Blood Gas Oxyhemoglobin 95.6 % (94-97); Blood O2 Saturation 97.8 % (92-98.5)
[2022-10-17] MEDS ORDERED: RSI MEDICATION KIT IV ONE (18:27)
[2022-10-17 18:36] LABS: Arterial Blood Carboxyhemoglob 0.5 % (0-1.5); Blood Gas Oxyhemoglobin 92.5 % (94-97); Blood O2 Saturation 94.8 % (92-98.5)
--- NOTE | 2022-10-17 19:57 | RAD REPORT ---
EXAM DESCRIPTION: RAD - Chest Single View - 10/17/2022 7:40 pm CLINICAL HISTORY: S/P intubation Chest pain. COMPARISON: Chest Single View dated 10/15/2022; Chest Single View dated 09/28/2022; Chest Single View dated 09/26/2022; Chest Single View dated 09/23/2022 FINDINGS: Portable technique limits examination quality. Tip of the endotracheal tube is above the betty, the level of the aortic arch. Mild bilateral pulmon pily haziness is unchanged may represent pulmonary edema. Right size mildly prominent.No displaced fra cture evident.
[2022-10-17] MEDS: ATORVASTATIN 20 MG TAB PO SCH (20:04)
[2022-10-17 21:50] LABS: Albumin 3.9 g/dL (3.4-5.0); Bilirubin Total 0.6 mg/dL (0.2-1.0); Magnesium 2.3 mg/dL (1.6-2.4); Potassium 4.4 mEq/L (3.5-5.1); Protein, Total 8.3 g/dL (6.4-8.2)
--- NOTE | 2022-10-17 23:10 | P.PN ---
Date of Service: 10/17/22 respiratory acidosis/hypercapnea not responding to bipap. Patient nonresponsive to painful stimuli. Decision made to intubate. Code blue called. ED physician intubated patient with glidescope, 7.5 ET tube in 1 attempt. IJ central line insertion unsuccessful. BP stable. Not currently requiring any sedation or vasopressors.
[2022-10-18] MEDS ORDERED: DEXMEDETOMIDINE HCL 200 MCG in NA CHLORIDE 0.9% 98 ML IV SCH (01:00)
--- NOTE | 2022-10-18 03:44 | PN ---
Date of Progress Note: 10/17/2022 Chief Complaint: End-stage renal disease, hyperkalemia. Patient developed an uncontrollable involuntary movement involving upper body and facial grimacing to day. Patient had ABG done and was found to have respiratory distress. Lab work showed severe hyperk alemia, potassium was 6.4, sodium 153, chloride 104, CO2 21, BUN 78, creatinine 12.6. Patient was me dicated with IV regular insulin and D50 as well as he received calcium gluconate. Glucose levels wer e 154 and 155. Potassium level after medication was given improved to 6.0. Subsequently, patient wa s transferred to ICU and pulmonary service was evaluating the patient for possible intubation and pre viously he was seen by a neurologist for altered mental status and a possible seizure activity. The patient had an MRI done which did not show any evidence of stroke or cerebral thrombosis. No evidenc e of acute infarct. The patient has underlying multiple condition including end-stage renal disease, obstructive sleep apnea, obesity, hypothyroidism. Blood pressure was elevated and the patient has s ome fluid overload. Chest x-ray showed possible pulmonary edema and after he was medicated with Kepp ra for possible seizure, he had an emergent hemodialysis done to control hyperkalemia. Review of Systems: Unobtainable. Physical Examination: Lungs: Rhonchi present. Heart: S1, S2. Abdomen: Obese, soft. Extremities: Edema present. Impression And Plan: The patient has multiple medical problems including end stage renal disease. Todd ugalde presented to the hospital with altered mental status. This morning, he developed involuntary movem ent of upper extremity and facial dystonia. On presentation to the hospital, he was complaining of d izziness, slurred speech, aphasia and workup was initiated with Neurology. He had fever 100.2 and wa s started on empiric antibiotics. He takes multiple medication at home including hydrocodone and rosalee taminophen, trazodone, Zyrtec. Please see the medication list. The patient received stat dialysis for metabolic clearance and ultrafiltration was done to control fl uid overload. Chest x-ray showed pulmonary edema and chemistry showed elevated potassium, which was persistent and did not improve significantly after medication. Patient has end-stage renal disease, presumed to be due to hypertension and diabetes. Dizziness, slurred speech, aphasia as well as involuntary movement, possible seizure. Patient was se en by a neurologist and Keppra was started for seizure. Hypertension. Continue to monitor blood pressure and continue medication. Diabetes mellitus. Continue insulin. Monitor blood glucose closely. Fever, on empiric antibiotics. Follow up culture. EB/CASSIE Voice ID: [id number] Report ID: [id number]
[2022-10-18] MEDS ORDERED: ALBUMIN HUMAN 25% 100 ML IV ONE (04:25)
[2022-10-18] MEDS ORDERED: LEVOTHYROXINE SODIUM 100 MCG VIAL IV SCH (06:00)
[2022-10-18 06:39] LABS: Albumin 3.5 g/dL (3.4-5.0); Bilirubin Total 0.5 mg/dL (0.2-1.0); Potassium 5.6 mEq/L (3.5-5.1); Protein, Total 7.6 g/dL (6.4-8.2)
[2022-10-18] MEDS: INSULIN -REGULAR HUMAN 50 UNIT/0.5 ML ML SQ SCH ×4 (07:30→20:57)
[2022-10-18] MEDS ORDERED: ALBUTEROL 2.5 MG/3 ML NEB SOL NEB PRN (09:00)
[2022-10-18] MEDS: AMLODIPINE 10 MG TAB PO SCH (09:00)
[2022-10-18] MEDS ORDERED: SOD POLYSTYREN SUL 15 GM/60 ML UCUP PR ONE (09:07)
[2022-10-18] MEDS: NOREPINEPHRINE BITARTRATE/D5W 4 MG/250 ML BAG IV SCH ×2 (09:10→17:56)
[2022-10-18] MEDS ORDERED: NOREPINEPHRINE BITARTRATE/D5W 4 MG/250 ML BAG IV ONE (09:19)
--- NOTE | 2022-10-18 09:25 | P.PN ---
Subjective Date of Service: 10/18/22 Primary Care Provider: Karyn Chief Complaint: Respiratory failure severe hypothyroidism And had to be intubated yesterday due to progressive hypercapnia he is severely hypothyroid only stable unresponsive on ventilator and has mild respiratory alkalosis now Review of Systems is unable to be obtained Physical Examination - Vital Signs Temperature: 97 F Blood Pressure: 99/64 Pulse: 70 Respirations: 16 Pulse Ox (%): 97 - Physical Exam General: Unresponsive Respiratory: Clear to auscultation bilaterally, Diminished Cardiovascular: No edema, Regular rate/rhythm, Normal S1 S2 Assessment And Plan - Current Problems (Diagnosis) (1) CVA (cerebral vascular accident) Current Visit: Yes Status: Acute Plan: Is on a ventilator Qualifiers: CVA mechanism: unspecified Qualified Code(s): I63.9 - Cerebral infarction, unspecified (2) Seizures Current Visit: Yes Status: Acute Plan: Possible seizures continue with Keppra (3) Chronic renal failure Current Visit: Yes Status: Acute Plan: In by nephrology undergoing dialysis and is hypotensive today we will start on Levophed Qualifiers: Chronic kidney disease stage: unspecified stage Qualified Code(s): N18.9 - Chronic kidney disease, unspecified (4) Hypothyroidism Current Visit: Yes Status: Chronic Plan: Patient has myxedema coma his TSH level is 192 likely he is noncompliant so level is satisfactory with IV Synthroid will increase to 100 mcg tomorrow Qualifiers: Hypothyroidism type: unspecified Qualified Code(s): E03.9 - Hypothyroidism, unspecified (5) Chronic respiratory failure with hypoxia and hypercapnia Current Visit: Yes Status: Chronic Plan: Patient has hypoxemia hypercapnia is now hypoxic maybe have underlying respiratory alkalosis will adjust the ventilator x-ray reviewed Physician Review: Patient Assessed, Agree with Above Assessment and Plan
[2022-10-18] MEDS ORDERED: levETIRAcetam 500 MG in NA CHLORIDE 0.9% 100 ML IV SCH (09:30)
[2022-10-18 09:36] LABS: Arterial Blood Carboxyhemoglob 1.2 % (0-1.5); Blood O2 Saturation 88.6 % (92-98.5)
[2022-10-18] MEDS ORDERED: D5W 1,000 ML with NA BICARB 8.4% 150 MEQ IV SCH ×4 (10:00→19:08)
[2022-10-18] MEDS ORDERED: 0.9 % SODIUM CHLORIDE 20 ML ONE (11:05)
[2022-10-18] MEDS ORDERED: ROCURONIUM 50 MG/5 ML VIAL IV ONE (11:59)
[2022-10-18] MEDS ORDERED: ETOMIDATE 20 MG/10 ML VIAL IV ONE (11:59)
--- NOTE | 2022-10-18 12:32 | CON ---
Date of Consultation: 10/18/2022 This is a stat consult for central line placement. Reason For Consultation: The patient has poor IV access, needs central line for multiple medications including vasopressors. History Of Present Illness: Informed consent obtained from the brother, who understood risks, benefi ts, and alternatives and agrees to procedure. The patient is intubated at this time, unable to provi de an adequate review of systems. He has been on Precedex and that recently was just turned off. Past Medical History: Hypertension, hypothyroidism, type 2 diabetes, end-stage renal disease. Past Surgical History: Renal access surgery and tracheostomy with reversal. Allergies: REVIEWED. Social History: The patient currently does not smoke or drink. Physical Examination: Vital Signs: Reviewed. On pressors, his blood pressure is 125/62, otherwise stable and afebrile. H e is intubated. Neck: No masses. Chest: Clear. Abdomen: Soft. Extremities: Neurovascularly intact. Neuro: Nonfocal. Diagnostic Data: Reviewed. Platelets are 219. INR is 0.85. Chemistry reviewed as well. Assessment: A 57-year-old gentleman with multiple medical problems with poor IV access requiring mul tiple medications. Plan: We will place a central line. The patient's brother understands the risks, benefits, and alte rnatives and agrees to procedure. Procedure Note: The patient prepped and draped in the usual sterile fashion. Lidocaine 1% was infil trated locally. An 18-gauge needle was used to access the right IJ vein; however, the patient had mu ltiple lines in the past and it was hard to pass the guidewire safely at this time as the patient had a fistula on the left side. A right subclavian approach was used to access the right subclavian vei n. Guidewire passed. Seldinger technique used. Catheter placed to 17 cm and secured with 3-0 silk. Catheter flushed with heparin and packed with heparin with good blood flow. Sterile dressing appli ed. The patient tolerated the procedure in stable condition. Chest x-ray has been ordered. /MODL Voice ID: [id number] Report ID: [id number]
--- NOTE | 2022-10-18 12:33 | RAD REPORT ---
[facility] DES[facility] 12[facility]14 pm CLINICAL HISTORY: central line placement COMPARISON: Chest Single View dated 10/18/2022; Chest Single View dated 10/17/2022; Chest Single View dated 10/15/2022; Chest Single View dated 09/28/2022 TECHNIQUE: Portable AP view of the chest. FINDINGS: Right subclavian CVC has been placed, with tip projecting at the level of the distal SVC. Endotracheal tube has been retracted with its tip now 3.2 centimeter above the betty. Improving cent ral opacities and partial improvement of left basilar patchy airspace disease. No pneumothorax or eff usion. The cardiomediastinal contours are unremarkable. IMPRESSION: Satisfactory right subclavian CVC positioning. Slightly retracted endotracheal tube. Imp rovement pulmonary findings as above.
--- NOTE | 2022-10-18 12:35 | RAD REPORT ---
EXAM DESCRIPTION: RADChest Single View10/18/2022 10:27 am CLINICAL HISTORY: Respiratory failure COMPARISON: Chest Single View dated 10/17/2022; Chest Single View dated 10/15/2022; Chest Single View dated 09/28/2022; Chest Single View dated 09/26/2022; Chest Single View dated 10/18/2022 TECHNIQUE: Portable AP view of the chest. FINDINGS: Endotracheal tube tip cannulates the right main bronchus ostium. Enteric tube is present w ithin the stomach. Stable patchy perihilar opacities and left basilar airspace disease. Decreased ins piratory effort limits evaluation. No pneumothorax or effusion. The cardiomediastinal contours are u nremarkable. IMPRESSION: Endotracheal tube tip cannulates the right main bronchus ostium. It appears to be retrac kailey on a subsequent radiograph. Stable patchy perihilar opacities and left basilar airspace disease.
[2022-10-18] MEDS: Mupirocin NASAL 2 APPL/1 GM TUBE NAS SCH (20:57)
--- NOTE | 2022-10-18 21:11 | PN ---
Chief Complaint: End-stage renal disease, hyperkalemia. Subjective: Patient received dialysis yesterday to control hyperkalemia. After dialysis, potassium level was within normal limits and this monitor potassium is elevated up to 5.6. Patient received Ka yexalate as well as the IV dextrose in insulin. Patient was started on bicarbonate drip and potassiu m level has improved. Patient remains intubated on low dose of Levophed for blood pressure support. Patient had respiratory acidosis and was intubated last evening. Review of Systems: Patient today is alert, although he cannot provide review of systems due to the fact that he is intub ated, although he can communicate and denies discomfort. Physical Examination: Lungs: Normal respiratory effort. No wheezing. No rhonchi. Heart: S1, S2. Abdomen: Soft. Extremities: Slight edema present in both legs. Impression And Plan: Patient has multiple medical problems including end-stage renal disease, ____, obstructive sleep apnea. He developed involuntary movement of the upper extremity and facial d ystonia, possible seizure. He was started on antiseizure medication. Dialysis was done afterwards f or metabolic clearance to treat hyperkalemia. Potassium level has improved. Continue to monitor abril ctrolytes. Next dialysis will be ordered according to the lab results. Today, patient received Susie xalate and potassium level improved. 1.Fever, on empiric antibiotics. 2.Diabetes mellitus. Continue insulin. 3.Hypotension, currently on pressor. Blood pressure medication on hold. EB/MODL Voice ID: [id number] Report ID: [id number]
[2022-10-19 05:44] LABS: AST/SGOT 11 U/L (15-37); Albumin 3.2 g/dL (3.4-5.0); Alkaline Phosphatase 57 U/L (45-117); BUN Blood Urea Nitrogen 56 mg/dL (7-18); Bicarbonate 29 mEq/L (21-32); Bilirubin Total 0.5 mg/dL (0.2-1.0); Glomerular Filtration Rate 5 ml/min (=/>90); Glucose Level 88 mg/dL (74-106); Magnesium 2.1 mg/dL (1.6-2.4); Phosphorus 5.6 mg/dL (2.5-4.9); Potassium 3.3 mEq/L (3.5-5.1); Protein, Total 6.6 g/dL (6.4-8.2); Sodium Level 136 mEq/L (136-145)
[2022-10-19 05:49] LABS: ALT/SGPT < 10 U/L (16-61)
[2022-10-19] MEDS: LEVOTHYROXINE SODIUM 100 MCG VIAL IV SCH (06:00)
[2022-10-19 07:14] LABS: Blood Gas Oxyhemoglobin 87.7 % (94-97); Blood O2 Saturation 88.4 % (92-98.5)
[2022-10-19] MEDS: INSULIN -REGULAR HUMAN 50 UNIT/0.5 ML ML SQ SCH ×4 (07:30→20:59)
--- NOTE | 2022-10-19 07:42 | RAD REPORT ---
EXAM DESCRIPTION: Phil Single View10/19/2022 6:08 am CLINICAL HISTORY: Respiratory failure COMPARISON: October 18, 2022 FINDINGS: Mild right basilar opacity. The remainder of the lungs appear clear of acute infiltrate. Heart is mildly enlarged. Endotracheal tube has its tip 1 centimeter above the betty. Central venous line in place. Nasogastric tube within stomach IMPRESSION: Mild right basilar opacity may represent atelectasis or infiltrate Endotracheal tube with its tip 1 centimeter above betty
[2022-10-19] MEDS: ALBUMIN HUMAN 25% 100 ML IV ONE ×2 (09:27→15:55)
--- NOTE | 2022-10-19 11:14 | P.PN ---
Subjective Date of Service: 10/19/22 Primary Care Provider: Karyn Chief Complaint: Respiratory failure severe hypothyroidism Patient is intubated and on mechanical ventilation. He is awake and nods to questions. No issues overnight. Physical Examination - Vital Signs Temperature: 97.2 F Blood Pressure: 95/59 Pulse: 62 Respirations: 13 Pulse Ox (%): 98 - Physical Exam General: Obese, Other (Awake) HEENT: Other (On the vent) Neck: Supple Respiratory: Diminished, Other (Clear to auscultation) Cardiovascular: Regular rate/rhythm, Normal S1 S2, Edema (Bilateral lower extremities) Gastrointestinal: Normal bowel sounds, Soft and benign, Non-distended, No tenderness Musculoskeletal: No swelling, No tenderness Integumentary: No cyanosis Neurological: Other (No focal motor deficit) Assessment And Plan - Current Problems (Diagnosis) (1) Myxedema coma Current Visit: Yes Status: Acute (2) Chronic respiratory failure with hypoxia and hypercapnia Current Visit: Yes Status: Chronic (3) DM type 2 (diabetes mellitus, type 2) Current Visit: Yes Status: Chronic 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 No issues overnight. He has been stable on the vent. Pulmonary is assisting with vent management. Status post IV hydrocortisone for myxedema coma. Patient is currently receiving IV Synthroid. Serial blood gas shows improvement in CO2 on the vent. Weaning trials per pulmonary-Dr. Gonzales. Dr. Gonzales is coordinating extubation today. Renal is following for hemodialysis. Patient is on Keppra for seizures. Continue. Patient initially weaned off levophed but he now needs vasopressors during dialysis. Insulin sliding scale for glucose management. PT consult once extubated.
--- NOTE | 2022-10-19 12:05 | P.PN ---
Subjective Date of Service: 10/19/22 Primary Care Provider: Karyn Chief Complaint: Respiratory failure severe hypothyroidism Patient is doing well more alert responsive cooperative Review of Systems is unable to be obtained Physical Examination - Vital Signs Temperature: 97.2 F Blood Pressure: 112/77 Pulse: 58 Respirations: 12 Pulse Ox (%): 100 - Physical Exam General: Alert, Cooperative Cardiovascular: Edema Gastrointestinal: Normal bowel sounds, Soft and benign Assessment And Plan - Current Problems (Diagnosis) (1) CVA (cerebral vascular accident) Current Visit: Yes Status: Acute Plan: Is on a ventilator no evidence of stroke on MRI Qualifiers: Qualified Code(s): I63.9 - Cerebral infarction, unspecified (2) Seizures Current Visit: Yes Status: Acute Plan: Possible seizures continue with Keppra EEG ordered (3) Chronic renal failure Current Visit: Yes Status: Acute Plan: Seen by nephrology Qualifiers: Qualified Code(s): N18.9 - Chronic kidney disease, unspecified (4) Hypothyroidism Current Visit: Yes Status: Chronic Plan: Patient has myxedema coma his TSH level is 192 likely he is noncompliant continue with IV Synthroid 100 mcg Qualifiers: Qualified Code(s): E03.9 - Hypothyroidism, unspecified (5) Chronic respiratory failure with hypoxia and hypercapnia Current Visit: Yes Status: Chronic Plan: Doing well plan to wean and extubate today Physician Review: Patient Assessed, Agree with Above Assessment and Plan
[2022-10-19] MEDS: Mupirocin NASAL 2 APPL/1 GM TUBE NAS SCH ×2 (17:40→21:13)
--- NOTE | 2022-10-20 02:45 | CON ---
Date of Consultation: 10/19/2022 Reason For Consultation: Consultation called because of possible seizures. History Of Present Illness: Mr. Paez is a 57-year-old right-handed patient with multiple m edical problems including very poor medication compliance and multiple hospital admissions, non-insul in-dependent diabetes mellitus; hypertension; dyslipidemia; end-stage renal disease on hemodialysis M , Wednesday, Wednesday; diabetes mellitus type 2; and hypothyroidism, who came to [facility] on the 15 of October with dysarthria, dysphagia, confusion, diffuse weakness, dizziness. The patie nt was evaluated initially for the possibility of a stroke, but since the onset of his event could no t be determined and he is a renal patient on hemodialysis, TNK was not given and intra-arterial inter vention was not determined to be required. His subsequent brain MRI and MRA of the following day rul ed out presence of any acute ischemic or hemorrhagic stroke and he had no large vessel disease. Hill nadia, a significant abnormality in his blood work identified is thyroid stimulating hormone level to b e 192 with the upper limit of normal being 3.7. His free T4 was very low at 0.35, lower limit of nor mal 0.76. However, during hospitalization, the patient has had the fluctuations and potential seizur e activity which nursing staff identified as asynchronous movement of the arms and legs while he was unresponsive and he was unable to maintain his airway, so he was intubated and was hospitalized since the , today is the . Once his thyroid medication was restarted intravenously, the patient h as made a dramatic recovery. Nursing staff notes that he has significant proptosis and his unrespons iveness has began to resolve and he is actually while still intubated, responding appropriately, movi ng both arms and legs on either side without any difficulty, nodding appropriately, and asking for ut s tube to be removed by gestures. At the time of my evaluation, the patient again was returned to [facility] baseline level of functioning. No focal deficits were identified. Past Medical History: Hypertension; hypothyroidism; diabetes mellitus type 2; dyslipidemia; end-stag e renal disease on hemodialysis Wednesday, Wednesday, Wednesday; history of hypoxia hypercapnia respiratory failure and a tracheostomy that was reversed. Allergies: NO KNOWN DRUG ALLERGIES. Medications: At home, [place] 10/325 every 6 hours as needed, sevelamer carbonate 1 tablet 3 times inderjit ly, Desyrel 25 mg at bedtime, amlodipine daily, Tessalon Perles 100 mg 3 times daily, Zyrtec 10 mg da mirza, docusate sodium 100 mg daily, vitamin D 1 capsule every seventh day, Pepcid 20 mg daily, Flonase 50 mcg nasal spray 2 times daily, folic acid 1 mg daily, gabapentin 100 mg at bedtime, ipratropium/a lbuterol as needed, levothyroxine 150 mcg daily, senna 1 tablet twice daily, Januvia 1 tablet daily, aspirin 81 mg daily, Valtrex 500 mg every 24 hours, albuterol nebulizer 2.5 mg every 6 hours as neede d, prednisone 20 mg daily. Family History: Diabetes in sister. Social History: Denies alcohol, tobacco, or IV drug use. The patient is at home with family. Review of Systems: Patient is currently intubated, unable to get any verbal communication for gesturing. Appears to hav e no pain. He is moving arms and legs equally well. He is alert and he is gesturing to get his tube s removed. Physical Examination: Vital Signs: Blood pressure 172/69, pulse 61, respiratory rate 16, temperature 97.1, oxygen saturati on 100%. He is mechanically ventilated. Mr. Paez is in the ICU. Head: Normocephalic, atraumatic. He is intubated. Otherwise, he is an anicteric. Chest: Good air movement. Abdomen: Soft. Extremities: Show no significant edema, cyanosis, or clubbing. No focal deficits noted in arms and legs in terms of strength, coordination, sensation, reflexes. Laboratory Studies: His sodium 136, potassium 3.3, chloride 95, BUN 56, creatinine 10.1, glucose 88 to 103, calcium 8.5, magnesium 2.1, phosphorus 5.6, AST 11, an ALT less than 10, alkaline phosphate 5 7. Cortisol 58.2 and on 17 TSH 192, free T4 0.35. COVID testing is negative. Urinalysis pending. Note, he is a renal patient. Assessment: Mr. Paez is a 57-year-old patient with severe hypothyroidism, likely due to poor medica tion compliance causing unresponsiveness, generalized nonsymmetric, nonsynchronous jerking movements, and inability to protect airway. He has multiple medical problems include diabetes mellitus, hypert ension, dyslipidemia, and end-stage renal disease on hemodialysis. Once his thyroid medications bega n IV, he is actually making a dramatic improvement in symptoms. He has no evidence of seizures or st rokes. Plan: 1.May discontinue Keppra. 2.Continue levothyroxine intravenously. 3.Continue aggressive management of electrolyte abnormalities. 4.Continue with hemodialysis per Renal Service. 5.The patient does not require additional neurological workup. 6.After discharge, if required, he may follow up in Dr. Handley in clinic within a month. ELIZABETH/CASSIE Voice ID: [id number] Report ID: [id number]
--- NOTE | 2022-10-20 03:44 | PN ---
Date of Progress Note: 10/19/2022 Chief Complaint: End-stage renal disease, on hemodialysis. History Of Present Illness: Patient was transferred to ICU from telemetry floor when he developed re spiratory failure with hypercapnia and hypoxemia. He was intubated. Stat dialysis was done for hype rkalemia. The patient has severe for hypothyroidism and has been followed by Pulmonary consultants. The patient today underwent dialysis for metabolic clearance. Potassium level has improved. Patient required some also bicarbonate drip for maintenance and today bicarbonate drip was stopped. Patient tolerated dialysis. Ultrafiltration was obtained to control fluid overload. Review of Systems: Cannot be obtained because the patient is intubated. Physical Examination: Lungs: Normal respiratory sounds bilaterally. Heart: S1, S2. Abdomen: Soft, obese. Extremities: Edema slight in both ankles. Impression And Plan: 1.Patient has end-stage renal disease. Today, he had dialysis done and procedure was well tolerated . The patient, during the ICU stay, required IV pressor. Blood pressure during dialysis was well ma intained and procedure was well tolerated. Hyperkalemia, resolved. In addition to hemodialysis, michael adams was treated with medication for hyperkalemia, received also Kayexalate. 2.Fever, on antibiotics. 3.Diabetes mellitus type 2. 4.Respiratory failure per Pulmonary and primary team. EB/MODL Voice ID: [id number] Report ID: [id number]
[2022-10-20] MEDS: LEVOTHYROXINE SODIUM 100 MCG VIAL IV SCH (05:13)
[2022-10-20 05:17] LABS: Lymphocytes % 15.5 % (15.3-44.8); MPV 7.9 fL (7.6-11.3); RBC Red Blood Cell Count 2.94 M/uL (4.33-5.43)
[2022-10-20 05:32] LABS: Albumin 3.7 g/dL (3.4-5.0); Bilirubin Total 0.5 mg/dL (0.2-1.0); Magnesium 2.2 mg/dL (1.6-2.4); Phosphorus 7.9 mg/dL (2.5-4.9); Potassium 3.5 mEq/L (3.5-5.1); Protein, Total 7.5 g/dL (6.4-8.2)
[2022-10-20 06:43] LABS: Arterial Blood Carboxyhemoglob 1.1 % (0-1.5); Blood Gas Oxyhemoglobin 91.8 % (94-97); Blood O2 Saturation 94.9 % (92-98.5)
--- NOTE | 2022-10-20 06:58 | P.PN ---
Date of Service: 10/20/22 Subjective: doing okay, improving extubated yesterday evening breathing okay; reports no chest pain reports not taking thyroid medication regularly at home he brought up having some hallucinations / intrusive thoughts intermittently over last few months, thinks its due to a pill ROS: 10 point ROS as noted above, otherwise negative Physical Exam: GEN: Alert, oriented, answers basic questions appropriately HEENT: Normal conjunctiva, sclera anicteric CV: Regular rate and rhythm, b/l lower extremity edema Pulm: Nonlabored respirations on 3L NC ABD: Soft, nontender, nondistended Integumentary: No rashes Neuro: weak speech/voice, follows commands vitals reviewed Problem List: Myxedema coma; h/p hypothyroidism acute on chronic Respiratory failure with hypoxia and hypercapnia NIDDM2 ESRD on HD Pulmonary edema h/o Seizures Myxedema coma; h/p hypothyroidism acute on chronic Respiratory failure with hypoxia and hypercapnia Required mechanical ventilation. Extubated 10/19 Pulmonology is following s/p IV hydrocortisone for myxedema coma continue IV Synthroid for a few more days swallow eval, advance diet as tolerated CO2 improving PT consulted patient states he has not been taking his synthroid regularly - missing "most days" ESRD on HD Nephrology consulted Patient initially weaned off levophed but he reportedly needed vasopressors during dialysis. Seizures Patient is on Keppra for seizures. Continue. NIDDM2 Insulin sliding scale for glucose management. Code: Full Dispo: Home, ~4 days
[2022-10-20] MEDS: INSULIN -REGULAR HUMAN 50 UNIT/0.5 ML ML SQ SCH ×4 (07:30→20:49)
--- NOTE | 2022-10-20 07:30 | RAD REPORT ---
EXAM DESCRIPTION: RADChest Single View10/20/2022 4:50 am CLINICAL HISTORY: Respiratory failure COMPARISON: Chest Single View dated 10/19/2022; Chest Single View dated 10/18/2022; Chest Single View dated 10/18/2022; Chest Single View dated 10/17/2022hest Single View dated 10/19/2022; Chest Single Vie w dated 10/18/2022; Chest Single View dated 10/18/2022; Chest Single View dated 10/17/2022 TECHNIQUE: Portable AP view of the chest. FINDINGS: Interval extubation and removal of enteric tube. Right subclavian CVC stable in position, with catheter tip projecting at the mid SVC. Improving central vascular congestion. Decreased inspira tory effort limits evaluation, however no new focal airspace opacities are appreciated. No pneumotho rax or effusion. The cardiomediastinal contours are unremarkable. IMPRESSION: Improving central congestion. No other acute process. Interval extubation and removal of enteric tube.
--- NOTE | 2022-10-20 08:41 | P.PN ---
Subjective Date of Service: 10/20/22 Primary Care Provider: Karyn Chief Complaint: Severe hypothyroidism Patient is doing well he was extubated yesterday no new complaints Review of Systems is unable to be obtained Physical Examination - Vital Signs Temperature: 97.5 F Blood Pressure: 108/62 Pulse: 65 Respirations: 18 Pulse Ox (%): 99 - Physical Exam General: Alert, Cooperative Respiratory: Clear to auscultation bilaterally, Diminished Cardiovascular: Normal S1 S2, Edema - Studies Microbiology Data (last 24 hrs): 10/15/22 19:00 Blood - Blood Blood Culture Gram Stain - Final Assessment And Plan - Current Problems (Diagnosis) (1) Chronic renal failure Current Visit: Yes Status: Acute Plan: Seen by nephrology regarding dialysis Qualifiers: Chronic kidney disease stage: unspecified stage Qualified Code(s): N18.9 - Chronic kidney disease, unspecified (2) Hypothyroidism Current Visit: Yes Status: Chronic Plan: Problem of recurrent hospital admissions due to severe hypothyroidism possibly from noncompliance with IV Synthroid for now to evaluate his home medications Qualifiers: Hypothyroidism type: unspecified Qualified Code(s): E03.9 - Hypothyroidism, unspecified (3) Chronic respiratory failure with hypoxia and hypercapnia Current Visit: Yes Status: Chronic Plan: Patient doing well was extubated yesterday on 2 L of nasal cannula oxygen Physician Review: Patient Assessed, Agree with Above Assessment and Plan
[2022-10-20] MEDS: Mupirocin NASAL 2 APPL/1 GM TUBE NAS SCH ×2 (09:53→20:48)
[2022-10-20] MEDS: MIDODRINE HCL 5 MG TABLET PO SCH ×2 (16:09→22:44)
--- NOTE | 2022-10-20 23:47 | PN ---
Date of Progress Note: 10/20/2022 Chief Complaint: End-stage renal disease, fluid overload. Subjective: The patient remains in ICU. He is on low doses of norepinephrine for blood pressure sup port. He underwent dialysis yesterday and procedure was well tolerated. He had ultrafiltration done to treat fluid overload. Review of Systems: The patient is extubated. He answers to question. Denies complaints. Physical Examination: Lungs: Normal respiratory effort. No crackles. Heart: S1, S2. Abdomen: Soft, obese. Extremities: Slight edema in both ankles. Impression And Plan: 1.End-stage renal disease. Next dialysis tomorrow. The patient is on IV pressors. He remains in I [facility]. Plan is to monitor blood pressure during dialysis and advance ultrafiltration to control fluid o verload. 2.Hyperkalemia, resolved. Potassium within normal limits. The patient was treated with dialysis fo r hyperkalemia and also received Kayexalate. 3.Fever, on antibiotics. Follow up on cultures. 4.Respiratory failure, per Pulmonary Team. 5.Severe hypothyroidism and altered mental status. The patient is on Synthroid. Further recommenda tions from Primary Team. EB/MODL Voice ID: [id number] Report ID: [id number]
[2022-10-21 04:43] LABS: Absolute Lymphocytes (CBC) 1.1 K/uL (0.7-4.9); Hematocrit 28.9 % (39.6-49.0); MCV 102.3 fL (80-100); MPV 7.9 fL (7.6-11.3); RBC Red Blood Cell Count 2.82 M/uL (4.33-5.43)
[2022-10-21 05:39] LABS: Magnesium 2.3 mg/dL (1.6-2.4); Phosphorus 8.9 mg/dL (2.5-4.9); Potassium 3.5 mEq/L (3.5-5.1)
[2022-10-21] MEDS: LEVOTHYROXINE SODIUM 100 MCG VIAL IV SCH (06:00)
[2022-10-21] MEDS: MIDODRINE HCL 5 MG TABLET PO SCH ×3 (06:06→23:07)
--- NOTE | 2022-10-21 06:49 | P.PN ---
Date of Service: 10/21/22 Subjective: doing okay; breathing is improving slightly nauseated, no diarrhea/vomiting intermittently feels some chills in b/l legs hypoxic intermittently while sleeping ROS: 10 point ROS as noted above, otherwise negative Physical Exam: GEN: Alert, oriented, NAD HEENT: Normal conjunctiva, sclera anicteric CV: Regular rate and rhythm, trace- 1+ b/l lower extremity edema Pulm: Nonlabored respirations on 2L NC ABD: Soft, nontender, nondistended Neuro: weak speech/voice, follows commands vitals reviewed Problem List: Myxedema coma; h/o hypothyroidism acute on chronic Respiratory failure with hypoxia and hypercapnia NIDDM2 ESRD on HD Pulmonary edema h/o Seizures Myxedema coma; h/p hypothyroidism acute on chronic Respiratory failure with hypoxia and hypercapnia Required mechanical ventilation. Extubated 10/19 Pulm following s/p IV hydrocortisone for myxedema coma continue IV Synthroid for a few more days swallow eval, advance diet as tolerated CO2 improving PT consulted patient states he has not been taking his synthroid regularly - missing "most days" ESRD on HD Nephrology consulted Patient initially weaned off levophed but he reportedly needed vasopressors during dialysis. dialysis today, will monitor in ICU BP low/borderline, may need pressors midodrine started 10/20 Seizures Continue Keppra for seizures NIDDM2 Insulin sliding scale for glucose management. Code: Full Dispo: Home, ~3-4 days if tolerates dialysis without pressors, possible downgrade out of ICU in next 24hrs
[2022-10-21] MEDS: INSULIN -REGULAR HUMAN 50 UNIT/0.5 ML ML SQ SCH ×4 (07:15→21:00)
[2022-10-21] MEDS: Mupirocin NASAL 2 APPL/1 GM TUBE NAS SCH ×2 (08:13→21:27)
[2022-10-21] MEDS ORDERED: ALBUMIN HUMAN 25% 100 ML IV ONE (10:10)
[2022-10-21] MEDS: SEVELAMER CARBONATE 800 MG TABLET PO SCH ×2 (12:09→18:43)
--- NOTE | 2022-10-21 12:17 | PN ---
Date of Progress Note: 10/21/2022 Subjective: The patient was admitted with myxedema, CHF exacerbation, hypercapnic respiratory failur e. The patient had dialysis. The patient had shock, started on steroid and levothyroxine. Currentl y weaned from the pressors, started on midodrine. Blood pressure maintained. Today plan for dialysi s. Physical Examination: Vital Signs: Blood pressure 112/60, pulse of 58, afebrile. Chest: Decreased entry bilateral base with some rales on the left side. Heart: S1, S2. Systolic murmur. Abdomen: Soft, nontender. Extremity: Trace edema. Neuro: Alert. No focality. Oriented. No tremor. Laboratory Data: Hemoglobin 9.5. Sodium 136, potassium 3.5, bicarb 28, BUN 57, creatinine 11.4, benjy cium 8.2, phosphorus 8.9 magnesium 2.3. Chest x-ray, cardiomegaly with central congestion. Echocard iogram done in this admission; ejection fraction of 56%, mild MR, mild TR, no right heart failure. Current Medications: The patient on include; 1.Levothyroxine. 2.Midodrine. 3.Zofran p.r.n. 4.Hydralazine. 5.Levothyroxine 100. Assessment And Plan: 1.End-stage renal disease with mild over volume with respiratory distress, dialysis dependent with m arginal low blood pressure. We are going to arrange for the dialysis today. We will dialyze the pat ient on sodium module as a step to support the blood pressure and we will use low temperature. Also, we will use midodrine before dialysis and we will follow up the patient. 2.Hypertension, currently blood pressure on the lower side. Keep holding all blood pressure medicat ion. Use midodrine predialysis. 3.Hypokalemia. The patient is going to be dialyzed on 3K bath for today. 4.Over volume. The patient is going to be challenged with the dialysis. 5.Fever, resolved. Culture negative. Off antibiotic. 6.Myxedema. Continue levothyroxine. Consider adding cortisone to avoid exacerbation of adrenal ins ufficiency. 7.Anemia of chronic kidney disease. Resume SUMIT. 8.Secondary hyperparathyroidism. We will start the patient on Renvela and we will follow up the pat ient. Time spent examining the patient [id number], reviewing data, lab and radiology, placing order, disc ussing the case with the patient, discussing the case with the coding team lead including ICU nursing and the hospitalist more than 35 minutes. JESUS Voice ID: [id number] Report ID: [id number]
[2022-10-21] MEDS ORDERED: BENZONATATE 100 MG CAP PO PRN (14:26)
[2022-10-22] MEDS: LEVOTHYROXINE SODIUM 100 MCG VIAL IV SCH (06:00)
[2022-10-22 06:06] LABS: BUN Blood Urea Nitrogen 37 mg/dL (7-18); Bicarbonate 30 mEq/L (21-32); Glomerular Filtration Rate 6 ml/min (=/>90); Glucose Level 102 mg/dL (74-106); Magnesium 2.1 mg/dL (1.6-2.4); Potassium 3.1 mEq/L (3.5-5.1); Sodium Level 133 mEq/L (136-145)
[2022-10-22 06:08] LABS: Thyroid Stimulating Hormone > 500.000 uIU/mL (0.358-3.740)
--- NOTE | 2022-10-22 06:52 | P.PN ---
Date of Service: 10/22/22 Subjective: doing okay breathing improving intermittent chills remain ~same in b/l legs appetite improving ROS: 10 point ROS as noted above, otherwise negative Physical Exam: GEN: Alert, oriented, NAD HEENT: Normal conjunctiva, sclera anicteric CV: Regular rate and rhythm, trace-1+ b/l lower extremity edema Pulm: Nonlabored respirations on room air ABD: Soft, nontender, nondistended Neuro: weak speech/voice, follows commands vitals reviewed Problem List: Myxedema coma; h/o hypothyroidism acute on chronic Respiratory failure with hypoxia and hypercapnia ESRD on HD NIDDM2 Pulmonary edema h/o Seizures Myxedema coma; h/p hypothyroidism acute on chronic Respiratory failure with hypoxia and hypercapnia Required mechanical ventilation. Extubated 10/19 Pulm following s/p IV hydrocortisone for myxedema coma continue IV Synthroid for a few more days 10/22 - TSH >500 patient clinically improving, suspect lab error / some issue recheck TSH check thyroid U/S swallow eval, advance diet as tolerated CO2 improving PT consulted patient states he has not been taking his synthroid regularly - missing "most days" ESRD on HD Nephrology consulted dialysis yesterday, did not need pressors BP low/borderline midodrine started 10/20 with improvemen tof BP Seizures Continue Keppra for h/o seizures NIDDM2 Insulin sliding scale for glucose management. Code: Full Dispo: Home, ~3-4 days can downgrade today pending repeat TSH results
[2022-10-22] MEDS: INSULIN -REGULAR HUMAN 50 UNIT/0.5 ML ML SQ SCH ×4 (07:30→19:43)
[2022-10-22] MEDS: MIDODRINE HCL 5 MG TABLET PO SCH ×3 (07:52→22:21)
[2022-10-22] MEDS: SEVELAMER CARBONATE 800 MG TABLET PO SCH ×3 (07:52→17:06)
[2022-10-22] MEDS: Mupirocin NASAL 2 APPL/1 GM TUBE NAS SCH ×2 (07:52→19:42)
--- NOTE | 2022-10-22 10:09 | RAD REPORT ---
EXAM DESCRIPTION: US - Thyroid Para Parotid Gland - 10/22/2022 9:21 am CLINICAL HISTORY: Elevated TSH COMPARISON: CT neck May 2022 FINDINGS: Within the region of the right lobe of the thyroid is a 16 x 4 millimeter echogenic struct ure probably which is mildly inhomogeneous. Similar-appearing echogenic structure left lobe thyroid gland measures 12 x 5 millimeters There is equivocal isthmus thyroid tissue without visualization of a nodule. IMPRESSION: The thyroid gland is very small No nodule noted
--- NOTE | 2022-10-22 17:40 | PN ---
Date of Progress Note: 10/22/2022 Subjective: Patient was admitted with myxedema, respiratory failure secondary to hypercapnia. Patient was started . Patient had low blood pressure, was started on midodrine yesterday. We dialyzed him on sodium module and low temperature as tolerated well. Physical Examination: Vital Signs: Blood pressure 103/55, pulse of 61, afebrile. Chest: Clear to auscultation. Heart: S1, S2. Regular. Systolic murmur. Abdomen: Morbidly obese. Could not appreciate any organomegaly. Extremities: Trace edema. Neuro: Alert. No focality. Laboratory Data: Hemoglobin 9.5. Sodium 133, potassium 3.1, bicarb 30, BUN 37, creatinine 8.7, calcium 8.5. Magnesium 2.1, phosphorus 8.9. Current Medications: The patient on include: 1. Albuterol. 2. Midodrine 10 mg t.i.d. 3. Epogen. 4. Renvela 1600 with each meal. 5. Levothyroxine. 6. Insulin. Assessment And Plan: 1. End-stage renal disease, over volume, and hyperkalemia, recover, currently normal volume, potassium normalized. I am going to resume the dialysis Wednesday, Wednesday, Wednesday. I am going to go ahead and arrange for dialysis tomorrow. Patient is going to be dialyzed on the same regimen with sodium module and low temperature and we will follow up the patient. 2. Over volume, currently normal volume. Continue current dialysis regimen 3 times a week. 3. Hypertension, currently low blood pressure. Hold all blood pressure medications. Continue midodrine. 4. Hypothyroidism. Continue levothyroxine. Follow up with primary. 5. Hyperkalemia, status post dialysis, resolved. 6. Hyponatremia, dilutional, secondary to renal failure. Will be corrected with dialysis. 7. Anemia of chronic kidney disease. Continue SUMIT. 8. Secondary hyperparathyroidism. Continue binder. Time spent examining the patient [id number], reviewing data, lab and radiology, placing order, discussing the case with the patient, discussing the case with the team automobile assembler including hospitalist and nursing staff more than 35 minutes. JESUS Voice ID: [id number] Report ID: [id number] MTDD
[2022-10-22] MEDS: ACETAMINOPHEN 500 MG TAB PO PRN (17:50)
[2022-10-22] MEDS ORDERED: DICYCLOMINE HCL 10 MG CAP PO ONE (21:56)
[2022-10-23 04:01] LABS: Absolute Lymphocytes (CBC) 1.5 K/uL (0.7-4.9); Hematocrit 29.4 % (39.6-49.0); Lymphocytes % 23.1 % (15.3-44.8); MCV 102.1 fL (80-100); MPV 7.3 fL (7.6-11.3); RBC Red Blood Cell Count 2.88 M/uL (4.33-5.43)
[2022-10-23 04:26] VITALS: BMI 26.9
[2022-10-23 04:32] LABS: Albumin 3.8 g/dL (3.4-5.0); Magnesium 2.1 mg/dL (1.6-2.4); Phosphorus 7.8 mg/dL (2.5-4.9); Potassium 3.3 mEq/L (3.5-5.1)
[2022-10-23] MEDS: LEVOTHYROXINE SODIUM 100 MCG VIAL IV SCH (05:02)
[2022-10-23] MEDS ORDERED: NS 0.9% VIAL 10 ML ONE (05:08)
[2022-10-23] MEDS: MIDODRINE HCL 5 MG TABLET PO SCH ×3 (06:35→23:49)
--- NOTE | 2022-10-23 06:58 | P.PN ---
Date of Service: 10/23/22 Subjective: breathing improving, off oxygen improvement of strength and activity tolerance per PT yesterday 2-3 days of left lower chest wall discomfort, no change ROS: 10 point ROS as noted above, otherwise negative Physical Exam: GEN: Alert, oriented, NAD HEENT: Normal conjunctiva, sclera anicteric CV: Regular rate and rhythm, trace-1+ b/l lower extremity edema Pulm: Nonlabored respirations on room air ABD: Soft, nontender, nondistended MSK: mild discomfort / tenderness at left lower rib edge Neuro: weak speech/voice, follows commands vitals reviewed Problem List: Myxedema coma; h/o hypothyroidism acute on chronic Respiratory failure with hypoxia and hypercapnia incidental RIJ thrombus ESRD on HD NIDDM2 Pulmonary edema h/o Seizures Myxedema coma; h/p hypothyroidism acute on chronic Respiratory failure with hypoxia and hypercapnia Required mechanical ventilation. Extubated 10/19 Pulm following s/p IV hydrocortisone for myxedema coma continue IV Synthroid for a few more days 10/22 - TSH >500; patient clinically improving, suspect lab error / some issue repeat TSH: 110 thyroid U/S (10/22): The thyroid gland is very small; will discuss further with nephro, plan to remove RIJ incidental RIJ thrombus noted CO2 improving PT consulted patient states he has not been taking his synthroid regularly - missing "most days" CXR (10/23): ordered ESRD on HD Nephrology consulted dialysis yesterday, did not need pressors BP low/borderline midodrine started 10/20 with improvement of BP Seizures Continue Keppra for h/o seizures NIDDM2 Insulin sliding scale for glucose management. Code: Full Dispo: Home, ~23 days pending further improvement of TSH downgraded from ICU yesterday
[2022-10-23] MEDS: SEVELAMER CARBONATE 800 MG TABLET PO SCH ×3 (07:27→16:27)
[2022-10-23] MEDS: FAMOTIDINE 20 MG TAB PO SCH (07:27)
[2022-10-23] MEDS: INSULIN -REGULAR HUMAN 50 UNIT/0.5 ML ML SQ SCH ×2 (07:28→11:10)
[2022-10-23] MEDS: Mupirocin NASAL 2 APPL/1 GM TUBE NAS SCH (07:28)
[2022-10-23] MEDS: ACETAMINOPHEN 500 MG TAB PO PRN ×2 (07:33→21:30)
[2022-10-23] MEDS ORDERED: FAMOTIDINE 20 MG TAB PO SCH (09:00)
--- NOTE | 2022-10-23 11:46 | RAD REPORT ---
EXAM DESCRIPTION: RADChest Single View10/23/2022 10:22 am CLINICAL HISTORY: left chest discomfort COMPARISON: Chest Single View dated 10/20/2022; Chest Single View dated 10/19/2022; Chest Single View dated 10/18/2022; Chest Single View dated 10/18/2022 TECHNIQUE: Portable AP view of the chest. FINDINGS: Stable positioning of right subclavian CVC with catheter tip projecting over the superior cavoatrial junction. Decreased inspiratory effort limits evaluation. The lungs are clear. No pneumot horax or effusion. The cardiomediastinal contours are unremarkable. IMPRESSION: No acute cardiopulmonary process.
[2022-10-23] MEDS: EPOETIN 4,000 UNIT/ML VIAL IV SCH (13:00)
--- NOTE | 2022-10-23 17:24 | P.PN ---
Subjective Date of Service: 10/23/22 Primary Care Provider: Kayrn Chief Complaint: Severe hypothyroidism Subjective: Other (Received HD today.) Physical Examination - Vital Signs Temperature: 98.8 F Blood Pressure: 117/58 Pulse: 61 Respirations: 16 Pulse Ox (%): 98 - Physical Exam General: Other (Chronically ill appearing) HEENT: Atraumatic, Normocephalic Neck: Supple Respiratory: Other (Symmetric chest expansion) Cardiovascular: No rubs, No murmurs Gastrointestinal: Soft and benign, No rebound Musculoskeletal: No clubbing Integumentary: No warmth Neurological: Normal speech Urinary: Other (No bladder distention) External genitalia: Deferred Rectal: Deferred Assessment And Plan - Plan 1. End-stage renal disease. HD received today, cont MWF sked. 2. Volume overload. HD as above. 3. Hypertension. Hold all blood pressure medications. Continue midodrine. 4. Hypothyroidism. Continue levothyroxine. 5. Hyperkalemia, improved. HD as above. 6. Hyponatremia. HD as above. 7. Anemia of chronic kidney disease. Continue SUMIT. Physician Review: Patient Assessed, Agree with Above Assessment and Plan
[2022-10-23] MEDS: GABAPENTIN 100 MG CAP PO SCH ×2 (21:00→21:25)
[2022-10-23] MEDS: APIXABAN 2.5 MG TABLET PO SCH (21:25)
[2022-10-24] MEDS: LEVOTHYROXINE SODIUM 100 MCG VIAL IV SCH (06:00)
--- NOTE | 2022-10-24 06:48 | P.PN ---
Date of Service: 10/24/22 Subjective: breathing improving left lower chest wall discomfort continues - ongoing for > 2 weeks, nothing ag gravates this pain, alleviated with medication feels wobbly/weak on feet ROS: 10 point ROS as noted above, otherwise negative Physical Exam: GEN: Alert, oriented, NAD HEENT: Normal conjunctiva, sclera anicteric CV: Regular rate and rhythm, trace b/l lower extremity edema Pulm: Nonlabored respirations on room air ABD: Soft, nontender, nondistended MSK: mild discomfort at left lower rib edge, nontender Neuro: Normal speech, normal affect, generalized weakness vitals reviewed Problem List: Myxedema coma; h/o hypothyroidism acute on chronic Respiratory failure with hypoxia and hypercapnia incidental RIJ thrombus, new diagnosis ESRD on HD NIDDM2 Pulmonary edema h/o Seizures Myxedema coma; h/p hypothyroidism acute on chronic Respiratory failure with hypoxia and hypercapnia Required mechanical ventilation. Extubated 10/19 Pulm following s/p IV hydrocortisone for myxedema coma IV synthroid transition to oral Synthroid on 10/24 Recommend taking Synthroid in the evening, roughly 4 hours from his other medications/specifically from his Renvela- interferes with absorption 10/22 - TSH >500 patient clinically improving, suspect lab error / some issue repeat TSH: 110 thyroid U/S (10/22): The thyroid gland is very small; will discuss further with nephro, plan to remove RIJ incidental RIJ thrombus noted CO2 improving PT consulted patient states he has not been taking his synthroid regularly - missing "most days" possibility of taking it at same time as renvela, which can interfere with absorption CXR (10/23): No acute cardiopulmonary process PRN tramadol ESRD on HD Nephrology consulted; dialysis as ordered BP low/borderline midodrine started 10/20 with improvement of BP Seizures Continue Keppra for h/o seizures NIDDM2 Insulin sliding scale for glucose management. Code: Full Dispo: SNF, discussed with him on 10/24, feels more weak/unsteady. Lives brother who works / gone during the day. Agreeable to SNF ss/cm consulted pending further improvement of TSH
[2022-10-24 07:29] LABS: Albumin 3.9 g/dL (3.4-5.0); Phosphorus 5.3 mg/dL (2.5-4.9); Potassium 3.4 mEq/L (3.5-5.1)
[2022-10-24] MEDS: INSULIN -REGULAR HUMAN 50 UNIT/0.5 ML ML SQ SCH ×4 (07:30→21:00)
[2022-10-24] MEDS: SEVELAMER CARBONATE 800 MG TABLET PO SCH ×3 (07:31→17:12)
[2022-10-24] MEDS: MIDODRINE HCL 5 MG TABLET PO SCH ×3 (07:31→23:57)
[2022-10-24] MEDS: APIXABAN 2.5 MG TABLET PO SCH ×2 (08:09→20:35)
[2022-10-24] MEDS: TRAMADOL HCL 50 MG TAB PO PRN ×2 (08:10→17:12)
--- NOTE | 2022-10-24 10:16 | P.PN ---
Subjective Date of Service: 10/24/22 Primary Care Provider: Karyn Chief Complaint: Severe hypothyroidism Patient has improved significantly no further episodes of seizures doing well Review of Systems General: Weakness Respiratory: Shortness of Breath Physical Examination - Vital Signs Temperature: 97.9 F Blood Pressure: 114/67 Pulse: 66 Respirations: 18 Pulse Ox (%): 98 - Physical Exam General: Alert, Oriented x3 Respiratory: Clear to auscultation bilaterally Cardiovascular: No edema, Regular rate/rhythm Assessment And Plan - Current Problems (Diagnosis) (1) Chronic renal failure Current Visit: Yes Status: Acute Plan: Seen by nephrology regarding dialysis Qualifiers: Chronic kidney disease stage: unspecified stage Qualified Code(s): N18.9 - Chronic kidney disease, unspecified (2) Hypothyroidism Current Visit: Yes Status: Chronic Plan: Severe hypothyroidism due to noncompliance TSH is still elevated over to p.o. Synthroid 150 mcg daily have advised patient to take it every day twice he is doing well off oxygen plan for discharge Qualifiers: Hypothyroidism type: unspecified Qualified Code(s): E03.9 - Hypothyroidism, unspecified (3) Chronic respiratory failure with hypoxia and hypercapnia Current Visit: Yes Status: Chronic Plan: Patient is off oxygen Physician Review: Patient Assessed, Agree with Above Assessment and Plan
--- NOTE | 2022-10-24 15:27 | P.PN ---
Subjective Date of Service: 10/24/22 Primary Care Provider: Karyn Chief Complaint: Severe hypothyroidism Subjective: Other (Received HD yesterday.) Physical Examination - Vital Signs Temperature: 97.9 F Blood Pressure: 103/57 Pulse: 56 Respirations: 16 Pulse Ox (%): 97 - Physical Exam General: Other (Chronically ill appearing) HEENT: Atraumatic, Normocephalic Neck: Supple Respiratory: Other (Symmetric chest expansion) Cardiovascular: No rubs, No murmurs Gastrointestinal: Soft and benign, No rebound Musculoskeletal: No clubbing Integumentary: No warmth Neurological: Normal speech, Normal tone Urinary: Other (No bladder distention) External genitalia: Deferred Rectal: Deferred Assessment And Plan - Plan 1. End-stage renal disease. HD received yesterday, cont MWF sked. 2. Volume overload. HD as above. 3. Hypertension. Hold all blood pressure medications. Continue midodrine. 4. Hypothyroidism. Continue levothyroxine. 5. Hyperkalemia, improved. HD as above. 6. Hyponatremia. HD as above. 7. Anemia of chronic kidney disease. Continue SUMIT. Physician Review: Patient Assessed, Agree with Above Assessment and Plan
[2022-10-24] MEDS: GABAPENTIN 100 MG CAP PO SCH (20:36)
[2022-10-24] MEDS ORDERED: LEVOTHYROXINE SOD 0.125 MG TAB PO SCH (21:00)
[2022-10-25] MEDS: TRAMADOL HCL 50 MG TAB PO PRN ×3 (01:46→20:28)
[2022-10-25 05:54] LABS: Albumin 3.8 g/dL (3.4-5.0); Phosphorus 6.6 mg/dL (2.5-4.9); Potassium 3.7 mEq/L (3.5-5.1)
[2022-10-25] MEDS ORDERED: LEVOTHYROXINE SOD 0.125 MG TAB PO SCH (06:00)
--- NOTE | 2022-10-25 06:53 | P.PN ---
Date of Service: 10/25/22 Subjective: breathing continues to improve left lower chest wall discomfort continues no BM since wednesday ROS: 10 point ROS as noted above, otherwise negative Physical Exam: GEN: Alert, oriented, NAD HEENT: Normal conjunctiva, sclera anicteric CV: Regular rate and rhythm, trace b/l lower extremity edema Pulm: Nonlabored respirations on room air ABD: Soft, nontender, nondistended MSK: mild discomfort at left lower rib edge, nontender Neuro: Normal speech, normal affect, generalized weakness vitals reviewed Problem List: Myxedema coma; h/o hypothyroidism acute on chronic Respiratory failure with hypoxia and hypercapnia incidental RIJ thrombus, new diagnosis ESRD on HD Pulmonary edema h/o Seizures Constipation NIDDM2 Myxedema coma; h/p hypothyroidism acute on chronic Respiratory failure with hypoxia and hypercapnia Required mechanical ventilation. Extubated 10/19 Pulm following s/p IV hydrocortisone for myxedema coma IV synthroid transition to oral Synthroid on 10/24 Recommend taking Synthroid in the evening, roughly 4 hours from his other medications/specifically from his Renvela- interferes with absorption 10/22 - TSH >500 patient clinically improving, suspect lab error / some issue repeat TSH: 110 thyroid U/S (10/22): The thyroid gland is very small; will discuss further with nephro, plan to remove RIJ incidental RIJ thrombus noted CO2 improving PT consulted patient states he has not been taking his synthroid regularly - missing "most days" possibility of taking it at same time as renvela, which can interfere with absorption CXR (10/23): No acute cardiopulmonary process PRN tramadol ESRD on HD Nephrology consulted; dialysis as ordered BP low/borderline midodrine started 10/20 with improvement of BP Seizures Continue Keppra for h/o seizures Constipation no BM since 10/23 stool softener NIDDM2 Insulin sliding scale for glucose management. Code: Full Dispo: SNF, discussed with him on 10/24, feels more weak/unsteady. Lives brother who works / gone during the day. Agreeable to SNF ss/cm consulted pending further improvement of TSH
[2022-10-25] MEDS: MIDODRINE HCL 5 MG TABLET PO SCH ×3 (07:04→22:11)
[2022-10-25] MEDS: SEVELAMER CARBONATE 800 MG TABLET PO SCH ×3 (07:04→16:03)
[2022-10-25] MEDS: FAMOTIDINE 20 MG TAB PO SCH (07:04)
[2022-10-25] MEDS: INSULIN -REGULAR HUMAN 50 UNIT/0.5 ML ML SQ SCH ×4 (07:30→21:00)
[2022-10-25] MEDS: APIXABAN 2.5 MG TABLET PO SCH ×2 (09:09→20:18)
--- NOTE | 2022-10-25 13:07 | P.PN ---
Subjective Date of Service: 10/25/22 Primary Care Provider: Karyn Chief Complaint: Severe hypothyroidism Subjective: No new changes Physical Examination - Vital Signs Temperature: 97.9 F Blood Pressure: 112/52 Pulse: 54 Respirations: 18 Pulse Ox (%): 97 - Physical Exam General: Other (Chronically ill appearing) HEENT: Atraumatic, Normocephalic Neck: Supple Respiratory: Other (Symmetric chest expansion) Cardiovascular: No rubs, No murmurs Gastrointestinal: Soft and benign, No rebound Musculoskeletal: No clubbing Integumentary: No warmth Neurological: Normal tone Urinary: Other (No bladder distention) External genitalia: Deferred Rectal: Deferred Assessment And Plan - Plan 1. End-stage renal disease. HD tomorrow per q MWF sked. 2. Volume overload. HD as above. 3. Hypertension. Hold all blood pressure medications. Continue midodrine. 4. Hypothyroidism. Continue levothyroxine. 5. Hyperkalemia, improved. HD as above. 6. Hyponatremia. HD as above. 7. Anemia of chronic kidney disease. Continue SUMIT. Physician Review: Patient Assessed, Agree with Above Assessment and Plan
[2022-10-25] MEDS: DOCUSATE NA 100 MG CAP PO SCH (20:18)
[2022-10-25] MEDS: GABAPENTIN 100 MG CAP PO SCH (20:18)
[2022-10-26] MEDS: LEVOTHYROXINE SOD 0.075 MG TAB PO SCH (05:15)
[2022-10-26] MEDS: LEVOTHYROXINE SOD 0.1 MG TAB PO SCH (05:15)
--- NOTE | 2022-10-26 06:42 | P.PN ---
Date of Service: 10/26/22 Subjective: felt dizzy and nauseated this morning ; thinks maybe from tramadol did occur ~1 hour after taking synthroid left lower rib discomfort continues ~same ROS: 10 point ROS as noted above, otherwise negative Physical Exam: GEN: Alert, oriented, NAD HEENT: Normal conjunctiva, sclera anicteric CV: Regular rate and rhythm, trace b/l lower extremity edema Pulm: Nonlabored respirations on room air ABD: Soft, nontender, nondistended MSK: mild discomfort at left lower rib edge, nontender Neuro: Normal speech, normal affect, generalized weakness vitals reviewed Problem List: Myxedema coma; h/o hypothyroidism acute on chronic Respiratory failure with hypoxia and hypercapnia incidental RIJ thrombus, new diagnosis ESRD on HD Pulmonary edema h/o Seizures Constipation NIDDM2 Myxedema coma; h/p hypothyroidism acute on chronic Respiratory failure with hypoxia and hypercapnia Required mechanical ventilation. Extubated 10/19 CXR (10/23): No acute cardiopulmonary process Pulm following s/p IV hydrocortisone for myxedema coma IV synthroid transitioned to oral Synthroid on 10/24 Recommend taking Synthroid in the evening, roughly 4 hours from his other medications/specifically from his Renvela- interferes with absorption suspect this has been part of the issue 10/22 - TSH >500 (lab error) repeat TSH: 110 patient clinically improving thyroid U/S (10/22): The thyroid gland is very small; incidental RIJ thrombus noted; eliquis started 10/26 - repeat TSH/free t4 PT consulted patient states he has not been taking his synthroid regularly - missing "most days" possibility of taking it at same time as renvela, which can interfere with absorption ESRD on HD Nephrology consulted; dialysis as ordered next HD today BP low/borderline midodrine started 10/20 with improvement of BP Seizures Continue Keppra for h/o seizures Constipation no BM since 10/23 stool softener NIDDM2 Insulin sliding scale for glucose management. Code: Full Dispo: SNF, discussed with him on 10/24, feels more weak/unsteady. Lives with brother who works / gone during the day. Agreeable to SNF ss/cm consulted pending further improvement of TSH
[2022-10-26] MEDS: MIDODRINE HCL 5 MG TABLET PO SCH ×3 (06:47→22:43)
[2022-10-26] MEDS: INSULIN -REGULAR HUMAN 50 UNIT/0.5 ML ML SQ SCH ×4 (07:30→21:00)
[2022-10-26] MEDS: DOCUSATE NA 100 MG CAP PO SCH ×2 (08:01→20:00)
[2022-10-26] MEDS: APIXABAN 2.5 MG TABLET PO SCH ×2 (08:01→20:00)
[2022-10-26] MEDS: SEVELAMER CARBONATE 800 MG TABLET PO SCH ×3 (08:01→16:42)
[2022-10-26 10:35] LABS: Albumin 4.1 g/dL (3.4-5.0); Magnesium 2.2 mg/dL (1.6-2.4); Phosphorus 8.1 mg/dL (2.5-4.9); Potassium 4.5 mEq/L (3.5-5.1)
[2022-10-26] MEDS: EPOETIN 4,000 UNIT/ML VIAL IV SCH (13:30)
[2022-10-26] MEDS: GABAPENTIN 100 MG CAP PO SCH ×2 (17:03→20:00)
[2022-10-26] MEDS: ACETAMINOPHEN 500 MG TAB PO PRN (20:00)
[2022-10-27 03:42] LABS: Hematocrit 34.7 % (39.6-49.0); MPV 7.2 fL (7.6-11.3)
[2022-10-27 04:13] LABS: Albumin 4.2 g/dL (3.4-5.0); Phosphorus 4.5 mg/dL (2.5-4.9); Potassium 3.8 mEq/L (3.5-5.1)
--- NOTE | 2022-10-27 04:22 | PN ---
Date of Progress Note: 10/26/2022 Chief Complaint: Respiratory failure, altered mental status. Patient was found to have severe hypot hyroidism and was evaluated by primary team for myxedema coma. He was intubated for respiratory fail ure and altered mental status. He had seizure-like activity. Review of Systems: The patient denies complaints today. Denies chest pain, palpitation. Physical Examination: General: He is alert and oriented, answers questions. Lungs: Few rhonchi. Heart: S1 and S2. Abdomen: Soft. Extremities: No edema. Impression: 1.End-stage renal disease. Hemodialysis today to obtain negative fluid balance. Continue to treat fluid overload and continue p.o. fluid restriction. 2.Hypertension. Hold blood pressure medication because of borderline hypotension. Patient will con tinue midodrine to prevent intradialytic hypotension. 3.Hypothyroidism. Continue levothyroxine. 4.Hyperkalemia, controlled with dialysis. 5.Hyponatremia secondary to fluid overload. Continue low-sodium diet and p.o. fluid restriction and dialysis with ultrafiltration. 6.Anemia of chronic kidney disease. Continue SUMIT. EB/MODL Voice ID: [id number] Report ID: [id number]
[2022-10-27] MEDS: LEVOTHYROXINE SOD 0.1 MG TAB PO SCH (06:15)
[2022-10-27] MEDS: LEVOTHYROXINE SOD 0.075 MG TAB PO SCH (06:16)
[2022-10-27] MEDS: MIDODRINE HCL 5 MG TABLET PO SCH ×3 (06:16→23:27)
[2022-10-27] MEDS: FAMOTIDINE 20 MG TAB PO SCH (06:16)
[2022-10-27] MEDS: INSULIN -REGULAR HUMAN 50 UNIT/0.5 ML ML SQ SCH ×4 (07:30→21:00)
[2022-10-27] MEDS: GABAPENTIN 100 MG CAP PO SCH ×2 (08:31→21:39)
[2022-10-27] MEDS: APIXABAN 2.5 MG TABLET PO SCH ×2 (08:31→21:39)
[2022-10-27] MEDS: SEVELAMER CARBONATE 800 MG TABLET PO SCH ×3 (08:31→16:25)
[2022-10-27] MEDS: DOCUSATE NA 100 MG CAP PO SCH ×2 (08:31→21:39)
--- NOTE | 2022-10-27 13:46 | PN ---
Date of Progress Note: 10/27/2022 Subjective: The patient was admitted with respiratory failure, myxedema. The patient was started on levothyroxine. The patient feeling better. Still feeling weak, difficulty ambulating. Physical Examination: Vital Signs: Blood pressure 120/60, pulse of 60, afebrile. Chest: Decreased entry bilateral base. Heart: S1, S2. Regular. Systolic murmur. Abdomen: Soft, nontender. Extremity: Trace edema. Neurologic: Alert. No focality. Laboratory Data: Hemoglobin 11.2. Sodium 133, potassium 3.8, bicarb 30, BUN 37, creatinine 1.5, calcium 9.3, phosphorus 4.5, albumin 4.2. Current Medications: The patient on include; 1. Midodrine. 2. Albuterol. 3. Epogen 4000 every dialysis. 4. Hydralazine. 5. Gabapentin. 6. Renvela. 7. Levothyroxine. Assessment And Plan: 1. End-stage renal disease. We will continue the patient on dialysis Wednesday, Wednesday, Wednesday. I am going to go ahead and arrange for the dialysis tomorrow. 2. Hypertension currently, occasional low blood pressure on dialysis. We will continue using midodrine predialysis. 3. Anemia of chronic kidney disease, stable. We will continue current SUMIT. 4. Secondary hyperparathyroidism. Continue Renvela. 5. Deconditioning. Continue PT, OT. 6. Respiratory failure, hypercapnic, resolved. 7. Myxedema. Continue levothyroxine. Time spent examining the patient [id number], reviewing data, lab and radiology, placing order, discussing the case with the patient, discussing the case with the application development team lead including hospitalist and nursing staff more than 35 minutes. JESUS Voice ID: [id number] Report ID: [id number] EFREN
--- NOTE | 2022-10-27 14:05 | P.PN ---
Subjective Date of Service: 10/27/22 Primary Care Provider: Karyn Chief Complaint: Severe hypothyroidism Patient has no new complain. He was seen ambulating with physical therapy. No issues overnight. 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 ABD: Soft, nontender, nondistended Neuro: Normal speech, normal affect, generalized weakness vitals reviewed Problem List: Myxedema coma; h/o hypothyroidism acute on chronic Respiratory failure with hypoxia and hypercapnia incidental RIJ thrombus, new diagnosis ESRD on HD Pulmonary edema h/o Seizures Constipation NIDDM2 Myxedema coma; h/p hypothyroidism acute on chronic Respiratory failure with hypoxia and hypercapnia Required mechanical ventilation. Extubated 10/19 CXR (10/23): No acute cardiopulmonary process Pulm following s/p IV hydrocortisone for myxedema coma IV synthroid transitioned to oral Synthroid on 10/24 Recommend taking Synthroid in the evening, roughly 4 hours from his other medications/specifically from his Renvela- interferes with absorption Patient reports noncompliant with his Synthroid. 10/22 - TSH 110, improved from 192. patient clinically improving thyroid U/S (10/22): The thyroid gland is very small; incidental RIJ thrombus noted; eliquis started Patient undergoing PT. ESRD on HD Nephrology is follow and managing ESRD with hemodialysis. BP low/borderline midodrine started 10/20 with improvement of BP. Continue midodrine as needed. Seizures Continue Keppra for h/o seizures Constipation stool softener NIDDM2 Insulin sliding scale for glucose management. Code: Full Dispo: SNF, pending insurance authorization.
[2022-10-28] MEDS: MIDODRINE HCL 5 MG TABLET PO SCH ×3 (06:03→23:56)
[2022-10-28] MEDS: LEVOTHYROXINE SOD 0.075 MG TAB PO SCH (06:04)
[2022-10-28] MEDS: LEVOTHYROXINE SOD 0.1 MG TAB PO SCH (06:04)
[2022-10-28] MEDS: INSULIN -REGULAR HUMAN 50 UNIT/0.5 ML ML SQ SCH ×4 (07:30→21:00)
[2022-10-28] MEDS: APIXABAN 2.5 MG TABLET PO SCH ×2 (08:11→21:09)
[2022-10-28] MEDS: GABAPENTIN 100 MG CAP PO SCH ×2 (08:11→21:09)
[2022-10-28] MEDS: DOCUSATE NA 100 MG CAP PO SCH ×2 (08:11→21:09)
[2022-10-28] MEDS: SEVELAMER CARBONATE 800 MG TABLET PO SCH ×3 (08:11→16:16)
[2022-10-28] MEDS ORDERED: ALBUTEROL 2.5 MG/3 ML NEB SOL NEB PRN ×2 (09:09→14:00)
--- NOTE | 2022-10-28 11:25 | PN ---
Date of Progress Note: 10/28/2022 Subjective: The patient was admitted to the hospital with myxedema, respiratory failure, hypercapnic. The patient had deconditioning. The patient waiting for placement. Physical Examination: Vital Signs: Blood pressure 135/63, pulse of 58, afebrile. Chest: Faint rales bilateral. Heart: S1, S2. Regular. Abdomen: Soft, nontender. Extremities: Trace edema. Neurologic: Alert. No focality. Laboratory Data: Hemoglobin 11.2. Sodium 133, potassium 3.8, bicarb 30, BUN 37, creatinine 9.5, calcium 9.3, phosphorus 4.5. Current Medications: The patient on include albuterol, amiodarone, Eliquis, Epogen, hydralazine p.r.n., gabapentin, Renvela, Pepcid, levothyroxine, docusate. Assessment And Plan: 1. End-stage renal disease with over volume, currently started being normal volume. We will continue dialysis Wednesday, Wednesday, Wednesday. 2. Over volume, congestive heart failure exacerbation. The patient currently normal volume. We will continue back to his regular dialysis. 3. Hyponatremia, will be corrected with dialysis. 4. Myxedema. Continue levothyroxine. 5. Hypokalemia. Used to be hyperkalemia, currently stable. 6. Secondary hyperparathyroidism. Continue binder. 7. Deconditioning. Continue PT, OT. Waiting for placement. Time spent examining the patient [id number], reviewing data, lab and radiology, placing order, discussing the case with the patient, discussing the case with the marine steamfitter including hospitalist and nursing staff more than 35 minutes. JESUS Voice ID: [id number] Report ID: [id number] EFREN
[2022-10-28] MEDS: EPOETIN 4,000 UNIT/ML VIAL IV SCH (12:15)
--- NOTE | 2022-10-28 13:04 | P.PN ---
Subjective Date of Service: 10/28/22 Primary Care Provider: Karyn Chief Complaint: Severe hypothyroidism Patient seen sitting upright in bed and eating his breakfast. He has no new complaint and he tolerated his meal. Physical Examination - Vital Signs Temperature: 97.3 F Blood Pressure: 135/63 Pulse: 58 Respirations: 14 Pulse Ox (%): 97 Assessment And Plan - Current Problems (Diagnosis) (1) Myxedema coma Current Visit: Yes Status: Acute (2) Chronic respiratory failure with hypoxia and hypercapnia Current Visit: Yes Status: Chronic (3) DM type 2 (diabetes mellitus, type 2) Current Visit: Yes Status: Chronic Qualifiers: Diabetes mellitus terminal makeup operator insulin use: with jail use Diabetes mellitus complication status: with hyperglycemia Qualified Code(s): E11.65 - Type 2 diabetes mellitus with hyperglycemia; Z79.4 - [facility] (current) use of insulin (4) ESRD (end stage renal disease) on dialysis Current Visit: Yes Status: Chronic (5) Pulmonary edema Current Visit: No Status: Acute (6) Seizures Current Visit: Yes Status: Acute - Plan Physical Exam: GEN: Alert, oriented, NAD CV: Regular rate and rhythm, trace b/l lower extremity edema Pulm: Nonlabored respirations on room air, clear to auscultation bilaterally. ABD: Soft, nontender, nondistended Neuro: Normal speech, normal affect, generalized weakness vitals reviewed Diagnosis Myxedema coma; h/o hypothyroidism acute on chronic Respiratory failure with hypoxia and hypercapnia incidental RIJ thrombus, new diagnosis ESRD on HD Pulmonary edema h/o Seizures Constipation NIDDM2 Myxedema coma; h/p hypothyroidism acute on chronic Respiratory failure with hypoxia and hypercapnia Patient initially required mechanical ventilation. Extubated 10/19 CXR (10/23): No acute cardiopulmonary process Pulm following s/p IV hydrocortisone for myxedema coma Status post IV synthroid and transitioned to oral Synthroid on 10/24 Patient reports noncompliant with his Synthroid. 10/22 - TSH 110, improved from 192. patient clinically improving. Continue current dose Synthroid. thyroid U/S (10/22): The thyroid gland is very small; incidental RIJ thrombus noted; eliquis started Patient undergoing PT. ESRD on HD Nephrology is follow and managing ESRD with hemodialysis. BP low/borderline midodrine started 10/20 with improvement of BP. Continue midodrine as needed. Seizures Continue Keppra for h/o seizures Constipation stool softener NIDDM2 Insulin sliding scale for glucose management. Code: Full Dispo: SNF, pending insurance authorization.
[2022-10-29 04:04] LABS: Absolute Lymphocytes (CBC) 2.2 K/uL (0.7-4.9); Hematocrit 32.3 % (39.6-49.0); Lymphocytes % 20.8 % (15.3-44.8); MCV 102.8 fL (80-100); MPV 7.3 fL (7.6-11.3); RBC Red Blood Cell Count 3.14 M/uL (4.33-5.43)
[2022-10-29 04:33] LABS: Potassium 3.7 mEq/L (3.5-5.1)
[2022-10-29 05:10] LABS: Blood Morphology Comment NOTED (NOT SEEN); Platelet Estimate ADEQ; Polychromasia 1+
[2022-10-29 05:11] LABS: Teardrop Cell 1+
[2022-10-29] MEDS: LEVOTHYROXINE SOD 0.1 MG TAB PO SCH (06:35)
[2022-10-29] MEDS: MIDODRINE HCL 5 MG TABLET PO SCH ×2 (06:35→14:15)
[2022-10-29] MEDS: LEVOTHYROXINE SOD 0.075 MG TAB PO SCH (06:35)
[2022-10-29] MEDS: INSULIN -REGULAR HUMAN 50 UNIT/0.5 ML ML SQ SCH ×3 (07:30→15:46)
[2022-10-29] MEDS: SEVELAMER CARBONATE 800 MG TABLET PO SCH ×2 (08:37→12:04)
[2022-10-29] MEDS: GABAPENTIN 100 MG CAP PO SCH (08:38)
[2022-10-29] MEDS: FAMOTIDINE 20 MG TAB PO SCH (08:38)
[2022-10-29] MEDS: DOCUSATE NA 100 MG CAP PO SCH (08:38)
[2022-10-29] MEDS: APIXABAN 2.5 MG TABLET PO SCH (08:38)
[2022-10-29 10:46] LABS: SARS-CoV-2 Antigen Rapid Res Negative (Negative)
[2022-10-29] MEDS ORDERED: POLYETHYL GLY 3350 17 GM/DOSE PO SCH (10:58)
--- NOTE | 2022-10-29 11:05 | P.PN ---
Subjective Date of Service: 10/29/22 Primary Care Provider: Karyn Chief Complaint: Severe hypothyroidism Patient is complaining of constipation. 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 ABD: Soft, nontender, nondistended Neuro: Normal speech, normal affect, generalized weakness vitals reviewed Diagnosis Myxedema coma; h/o hypothyroidism acute on chronic Respiratory failure with hypoxia and hypercapnia incidental RIJ thrombus, new diagnosis ESRD on HD Pulmonary edema h/o Seizures Constipation NIDDM2 Myxedema coma; h/p hypothyroidism acute on chronic Respiratory failure with hypoxia and hypercapnia Patient initially required mechanical ventilation. Extubated 10/19 CXR (10/23): No acute cardiopulmonary process Pulm following s/p IV hydrocortisone for myxedema coma Status post IV synthroid and transitioned to oral Synthroid on 10/24 Patient reports noncompliant with his Synthroid. 10/22 - TSH 110, improved from 192. patient clinically improving. Continue current dose Synthroid. thyroid U/S (10/22): The thyroid gland is very small; incidental RIJ thrombus noted; eliquis started Patient undergoing PT. ESRD on HD Nephrology is follow and managing ESRD with hemodialysis. BP low/borderline midodrine started 10/20 with improvement of BP. Continue midodrine as needed. Seizures Continue Keppra for h/o seizures Constipation stool softener-Colace and MiraLAX NIDDM2 Insulin sliding scale for glucose management. Code: Full Dispo: SNF, pending insurance authorization.
[2022-10-29 11:30] VITALS: O2SAT 97
[2022-10-29] MEDS ORDERED: EPOETIN 4,000 UNIT/ML VIAL IV SCH (11:30)
--- NOTE | 2022-10-29 11:52 | PN ---
Date of Progress Note: 10/29/2022 Subjective: The patient was admitted with myxedema, respiratory failure, hypercapnic. The patient was treated, recovered. The patient has difficulty ambulating, waiting for placement. The patient complaining from left-sided chest pain, muscular type. Physical Examination: Vital Signs: Blood pressure 128/64, pulse of 54, afebrile. Chest: Clear to auscultation. Heart: S1, S2. Regular. Abdomen: Soft, nontender. Extremity: No edema. Neuro: Alert. No focality. Laboratory Data: Hemoglobin 10.9. Sodium 131, potassium 3.7, bicarb 27, BUN 51, creatinine 10.3, calcium 8.9. Current Medications: The patient on include; 1. Midodrine. 2. Epogen 4000. 3. Tylenol. 4. Gabapentin 100 b.i.d. 5. Renvela. 6. Pepcid. 7. Levothyroxine. Assessment And Plan: 1. End-stage renal disease. Used to be over volume, currently normal volume. We will continue dialysis Wednesday, Wednesday, Wednesday. 2. Hypertension, controlled, optimal. Continue current treatment. We will keep utilizing the blood pressure for more ultrafiltration. Continue midodrine. We will keep using sodium module and low temperature on the dialysis to be able to have better volume control on him. 3. Myxedema. Continue levothyroxine. 4. Secondary hyperparathyroidism. Continue Renvela. 5. Anemia of chronic kidney disease, stable. Continue SUMIT. I am going to go ahead and decrease Epogen to 2000. 6. Pleuritic chest pain. We will increase gabapentin to t.i.d. and we will follow up the response. I am going to go ahead and repeat chest x-ray for the patient. 7. Deconditioning. Continue PT, OT. Waiting for rehab placement. Time spent examining the patient [id number], reviewing data, lab and radiology, placing order, discussing the case with the patient, discussing the case with the steam hoist operator including hospitalist and nursing staff more than 35 minutes. JESUS Voice ID: [id number] Report ID: [id number] EFREN
--- NOTE | 2022-10-29 13:18 | P.DS ---
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 Philippe Dunbar is a 57-year-old male with a past medical history of non- insulin dependent type 2 diabetes, hyperlipidemia, hypertension, ESRD on HD MWF, and hypothyroidism who presented to the emergency department with complaints of dizziness, slurred speech, and aphasia. He states that he was recently started on a new antiviral for his shingles. He denied any other change in medications, fever, chest pain, shortness of breath, unilateral weakness, decreased sensation. Head CT did not show any acute findings. He was not in the window for TNK. Head and neck CTA were deferred as he is a dialysis patient. Patient was also found to have a temp of 100.2. No significant lab abnormalities. He was started on empiric antibiotics in the emergency department and admitted for further evaluation and management. Hospital Course: Diagnosis Myxedema coma; h/o hypothyroidism acute on chronic Respiratory failure with hypoxia and hypercapnia incidental RIJ thrombus, new diagnosis ESRD on HD Pulmonary edema h/o Seizures Constipation NIDDM2 Myxedema coma; h/p hypothyroidism acute on chronic Respiratory failure with hypoxia and hypercapnia Patient initially required ICU admission for mechanical ventilation. He was extubated 10/19 CXR (10/23): No acute cardiopulmonary process Pulmonary saw patient and assisted with management s/p IV hydrocortisone for myxedema coma Status post IV synthroid and transitioned to oral Synthroid on 10/24 Patient reported noncompliant with his Synthroid. 10/22 - TSH 110, improved from 192. patient clinically improving. Currently on Synthroid 175 mcg daily. thyroid U/S (10/22): The thyroid gland is very small; incidental RIJ thrombus noted; eliquis started Patient undergoing PT. He is currently ambulating with a walker ESRD on HD Nephrology saw patient and managed ESRD with hemodialysis. BP low/borderline midodrine started 10/20 with improvement of BP. On midodrine as needed. Seizures Continued Keppra for h/o seizures Constipation stool softeners-Colace and MiraLAX NIDDM2 Managed with insulin sliding scale. Vital Signs/Physical Exam: Temp Pulse Resp BP Pulse Ox 97.1 F 52 16 128/64 98 10/29/22 11:04 10/29/22 11:04 10/29/22 11:04 10/29/22 11:04 10/29/22 11:04 General: Alert, In no apparent distress, Oriented x3, Obese HEENT: Mucous membr. moist/pink Neck: Supple, JVD not distended Respiratory: Clear to auscultation bilaterally, Normal air movement Cardiovascular: Regular rate/rhythm, Normal S1 S2 Gastrointestinal: Normal bowel sounds, Soft and benign, Non-distended, No tenderness Musculoskeletal: No swelling, No tenderness Integumentary: No rashes, No cyanosis Neurological: Normal strength at 5/5 x4 extr Laboratory Data at Discharge: WBC 10.70 thou/uL (4.3-10.9) 10/29/22 02:34 Hgb 10.9 g/dL (13.6-17.9) L 10/29/22 02:34 Hct 32.3 % (39.6-49.0) L 10/29/22 02:34 Plt Count 501 thou/uL (152-406) H 10/29/22 02:34 PT 9.4 SECONDS (9.5-12.5) L 10/15/22 18:02 INR 0.85 10/15/22 18:02 APTT 25.2 SECONDS (24.3-36.9) 10/15/22 18:02 Sodium 131 mEq/L (136-145) L 10/29/22 02:34 Potassium 3.7 mEq/L (3.5-5.1) 10/29/22 02:34 BUN 51 mg/dL (7-18) H 10/29/22 02:34 Creatinine 10.30 mg/dL (0.70-1.30) H 10/29/22 02:34 Glucose 168 mg/dL (74-106) H 10/29/22 02:34 Phosphorus 4.5 mg/dL (2.5-4.9) 10/27/22 03:13 Magnesium 2.2 mg/dL (1.6-2.4) 10/26/22 09:41 Total Bilirubin 0.5 mg/dL (0.2-1.0) 10/20/22 04:45 AST 7 U/L (15-37) L 10/20/22 04:45 ALT 12 U/L (16-61) L 10/20/22 04:45 Alkaline Phosphatase 63 U/L (45-117) 10/20/22 04:45 Triglycerides 260 mg/dL (<150) H 10/16/22 06:24 Cholesterol 202 mg/dL (<200) H 10/16/22 06:24 HDL Cholesterol 59 mg/dL (40-60) 10/16/22 06:24 Cholesterol/HDL Ratio 3.42 10/16/22 06:24 Home Medications: Benzonatate [Tessalon Perle*] 100 mg PO TID PRN #30 cap 06/11/22 Cetirizine HCl [Zyrtec*] 10 mg PO DAILY #30 tab 06/11/22 Ergocalciferol (Vitamin D2) [Vitamin D2] 1 cap PO EVERY 7TH DAY #4 cap 06/11/22 Famotidine [Pepcid*] 20 mg PO DAILY #30 tab 06/11/22 Fluticasone [Flonase 50MCG Nasal [place]*] 2 sprays SERJIO BID #1 btl 06/11/22 Folic Acid 1 mg PO DAILY #30 tab 06/11/22 Gabapentin 100 mg PO BEDTIME #30 cap 06/11/22 Ipratropium/Albuterol Sulfate [Iprat-Albut 0.5-3(2.5) mg/3 ml] 3 ml IH Q6H #120 vial 06/11/22 Sitagliptin Phosphate [Januvia] 1 tab PO DAILY #30 tab 06/11/22 Valacyclovir [Valtrex*] 500 mg PO Q24H #14 tab 09/25/22 Albuterol Neb [Proventil 0.083% Neb Soln] 2.5 mg IH [id number] #60 amp 09/28/22 Apixaban [Eliquis *] 2.5 mg PO BID 10/29/22 Docusate [Colace Cap*] 100 mg PO BID cap 10/29/22 Epoetin [Retacrit] 2,000 unit IV EVERY HD vial 10/29/22 Insulin -Regular Human [Novolin -R*] See Protocol SQ ACHS ml 10/29/22 Levothyroxine [Synthroid*] 0.075 mg PO DAILYAC tab 10/29/22 Levothyroxine [Synthroid*] 0.1 mg PO DAILYAC tab 10/29/22 Midodrine HCl [Proamatine*] 10 mg PO Q8H tab 10/29/22 Polyethyl Gly 3350 [Glycolax*] 17 gm PO BID udbot 10/29/22 Sevelamer Carbonate [Renvela*] 1,600 mg PO TIDWM 10/29/22 Physician Discharge Instructions: Hemodialysis on Wednesdays and Fridays. Diet: ADA Activity: Ad bret Followup: NONE,NONE [Primary Care Provider] - Time spent managing pt's care (in minutes): 40
[2022-10-29] MEDS ORDERED: GABAPENTIN 100 MG CAP PO SCH (14:00)
--- NOTE | 2022-10-29 15:40 | RAD REPORT ---
EXAM DESCRIPTION: RADChest Single View10/29/2022 1:11 pm CLINICAL HISTORY: COPD COMPARISON: Chest Single View dated 10/23/2022; Chest Single View dated 10/20/2022; Chest Single View dated 10/19/2022; Chest Single View dated 10/18/2022 TECHNIQUE: Portable AP view of the chest. FINDINGS: Small left peripheral basal airspace opacity, could relate to atelectasis or early airspac e disease. No pneumothorax or effusion. The cardiomediastinal contours are unremarkable. IMPRESSION: Small left peripheral basal airspace opacity, could relate to atelectasis or early airsp rosalee disease.
[2022-10-29 16:05] VITALS: BP 168/74; TEMP 97.9
== END 2022-10-29 16:35 | DRG 80 ==
LOC: ER 17:35 → ERHOLD 19:33 → 2ND 19:47 → 3RD-ICU 10-17 10:46 → 2ND 10-22 22:30
PROVIDERS: ADMIT Internal Medicine Sleep Medicine; ATTEND Internal Medicine
PROC: 5A1945Z Respiratory Ventilation, 24-96 Consecutive Hours (ICD-10-PCS; principal; 2022-10-17)
PROC: 0BH17EZ Insertion of Endotracheal Airway into Trachea, Via Natural or Artificial Opening (ICD-10-PCS; 2022-10-17)
PROC: 5A09457 Assistance with Respiratory Ventilation, 24-96 Consecutive Hours, Continuous Positive Airway Pressure (ICD-10-PCS; 2022-10-17)
PROC: 02HV33Z Insertion of Infusion Device into Superior Vena Cava, Percutaneous Approach (ICD-10-PCS; 2022-10-18)
PROC: 5A1D70Z Performance of Urinary Filtration, Intermittent, Less than 6 Hours Per Day (ICD-10-PCS; 2022-10-23)
DX: E03.5 Myxedema coma (principal); J96.21 Acute and chronic respiratory failure with hypoxia; N18.6 End stage renal disease; J96.22 Acute and chronic respiratory failure with hypercapnia; B02.8 Zoster with other complications; E87.3 Alkalosis; R47.01 Aphasia; R57.9 Shock, unspecified; N25.81 Secondary hyperparathyroidism of renal origin; E87.1 Hypo-osmolality and hyponatremia; I82.C11 Acute embolism and thrombosis of right internal jugular vein; I13.2 Hypertensive heart and chronic kidney disease with heart failure and with stage 5 chronic kidney disease, or end stage renal disease; I50.9 Heart failure, unspecified; E11.22 Type 2 diabetes mellitus with diabetic chronic kidney disease; E11.65 Type 2 diabetes mellitus with hyperglycemia; D63.1 Anemia in chronic kidney disease; E78.5 Hyperlipidemia, unspecified; E87.6 Hypokalemia; E03.9 Hypothyroidism, unspecified; K59.00 Constipation, unspecified; G47.33 Obstructive sleep apnea (adult) (pediatric); E87.5 Hyperkalemia; N25.0 Renal osteodystrophy; R56.9 Unspecified convulsions; R50.9 Fever, unspecified; R47.81 Slurred speech; R29.702 NIHSS score 2; T38.1X6A Underdosing of thyroid hormones and substitutes, initial encounter; Z99.2 Dependence on renal dialysis; Z93.0 Tracheostomy status; Z78.1 Physical restraint status; Z79.82 Long term (current) use of aspirin; Z79.01 Long term (current) use of anticoagulants; Z79.52 Long term (current) use of systemic steroids; Z79.890 Hormone replacement therapy; Z79.899 Other long term (current) drug therapy; Z91.128 Patient's intentional underdosing of medication regimen for other reason; Z91.148 Patient's other noncompliance with medication regimen for other reason; Z20.822 Contact with and (suspected) exposure to COVID-19
CPT/HCPCS: 36415; 36600; 70450; 70544; 70547; 70551; 71045; 76536; 80048; 80053; 80061; 80069; 80076; 82140; 82533; 82805; 82947; 83605; 83735; 83880; 84100; 84439; 84443; 84484; 85025; 85027; 85610; 85730; 87040; 87205; 87340; 87804; 87811; 90935; 92526; 92610; 93005; 93306; 94002; 94003; 94660; 94760; 96365; 96375; 97110; 97116; 97161; 97530; 99285; A4216; J0360; J0612; J0692; J1644; J1720; J1815; J1953; J2405; J3411; P9047; Q5105

== ENCOUNTER 2022-12-07 09:07 | Emergency (ER) | payer OTHER ==
--- OUTSIDE RECORDS SUMMARY | 2022-12-07 09:32 | XMS REPORT | Continuity of Care Document ---
:1965 Author Organization [facility] t Address [address] [place] [address] Care Team Providers Name Role Phone GERRI VINCENT Primary Care Physician Unavailable [id number] Attending Clinician Unavailable IRMA NICHOLSON Attending Clinician Unavailable SYLVAIN OLIVARES Attending Clinician Unavailable Doctor Unassigned, [place] Attending Clinician Unavailable Bambi Peraza RN Attending Clinician Unavailable CAMILLE LANDEROS Attending Clinician Unavailable CAMILLE LANDEROS Attending Clinician [...] Clinician Unavailable HUNTER GIPSON Attending Clinician Unavailable [id number] Admitting Clinician Unavailable IRMA NICHOLSON Admitting Clinician Unavailable SYLVAIN OLIVARES Admitting Clinician Unavailable CAMILLE LANDEROS Admitting Clinician Unavailable GERRI VINCENT Admitting Clinician Unavailable Michael-Michel, Anav, Anav Admitting Clinician Unavailable BETTINA SHEEHAN Admitting Clinician Unavailable Payers Payer Name Policy Type Policy Number Effective Date Expiration Date Mleodie cho CDC REVIEW [id number] 2019 00:00:00 MEDICAID OF [place] [id number] 2019 00:00:00 [facility] [id number] MEDICARE PART A [id number] 2018 \T\ B 00:00:00 Problems Condition Condition Condition Status Onset Resolution Last Treating Co mments Source Name Details Category Date Date Treatment Clinician Date Thrombosis Thrombosis Disease Active U nivers of of 6-04 ity of dialysis dialysis 00:00: [place] shunt, shunt, 00 Medical initial initial Branch [...] Active [facility] 05-23 [facility] evaluation evaluation 00:00: Me dical for for 00 Center chronic chronic kidney kidney disease disease Essential Essential Disease Active [facility] hypertens[facility] 05-23 Ann-Marie kes on on 00:00: [address] Dizziness Dizziness Disease Active Uni vers 9-10 ity of 00:00: [place] [facility] Pre-syncop Pre-syncop Disease Active U nivers e e 9-08 ity of 00:00: [place] [address] Medical Branch Elevated Elevated Disease Active 2017-05 Unive rs troponin I troponin I - it y of level level 00:00: [place] [address] Medical Branch Elevated Elevated Disease Active 2017-05 Unive rs brain brain -02 ity of natriureti nat[place]ureti [place] c peptide c peptide 00 Medi benjy (BNP) (BNP) Branch level level Essential Essential Disease Active 2017-05 Uni vers hypertensi hypertensi -02 it y of on on 00:00: [place] [facility] Dyslipidem Dyslipidem Disease Active 2017-05 U nivers ia ia - ity of 00:00: [place] [facility] Hypocalcem Hypocalcem Disease Active 2017-05 U nivers ia ia - ity of 00:00: [address] Branch Allergies, Adverse Reactions, Alerts Allergy [...] Active Univers ALLERGIE Class ity of S [place] [facility] Family History Family Member Diagnosis Comments Start Date Stop Date Source Natural father Alcohol abuse [facility] Natural sister Diabetes [facility] Natural sister Kidney disease [facility] Natural sister No Known Problem [facility] Natural brother No Known Problem [facility] Natural mother No Known Problem [facility] Social History Social Habit Start Date Stop Date Quantity Comments Source History SDOH [facility] Alcohol Comment Medical C enter History of tobacco Cigarette Smoker [facility] Gender identity [facility] Sexual orientation [facility] History SDOH [facility] Alcohol Std Drinks Medica l Center History SDOH [facility] Alcohol Binge Medical [facility] History SDOH Social Unive rsity of Connections [facility] Med ical Together Branch History SDOH Social Unive rsity of Connections [facility] Medical Branch History SDOH Social Unive rsity of Connections [place] [facility] Membership Branch History SDOH Social Unive rsity of Connections [place] [facility] Meetings Branch History SDOH Social Unive rsity of Connections [facility] Medical Branch History SDOH Social 2022-10-06 2022-10-06 5 Unive rsity of Connections Phone 00:00:00 00:00:00 [place] [facility] History SDOH 2022-10-06 2022-10-06 0 University o f Physical Activity 00:00:00 00:00:00 [place] [facility] DPW Branch History SDOH 2022-10-06 2022-10-06 0 University o f Physical Activity 00:00:00 00:00:00 [place] [facility] MPS Branch History SDOH 2022-10-06 2022-10-06 5 University o f Financial 00:00:00 00:00:00 [place] [facility] History SDDE Food 2022-10-06 2022-10-06 1 Univers ity of Worry 00:00:00 00:00:00 [place] [facility] History SDDE Food 2022-10-06 2022-10-06 1 Univers ity of Scarcity 00:00:00 00:00:00 [place] [facility] History SDDE 2022-10-06 2022-10-06 2 University o f Transport Med 00:00:00 00:00:00 [place] Medic al Branch History SDDE 2022-10-06 2022-10-06 2 University o f Transport Non-Med 00:00:00 00:00:00 [place] M edical Branch History SDDE 2022-10-06 2022-10-06 2 University o f Housing Unable to 00:00:00 00:00:00 [place] M [facility] Pay Branch History [facility] 2022-10-06 2022-10-06 1 University o f Housing Places 00:00:00 00:00:00 [place] Medi benjy Lived Branch History [facility] 2022-10-06 2022-10-06 2 University o f Housing Homeless 00:00:00 00:00:00 [place] Me dical Last Year Branch Tobacco use and 2022-10-04 2022-10-04 Smokeless Universit y of exposure 00:00:00 00:00:00 tobacco non-user [place] Me dical Branch Exposure to 2021-11-22 2021-12-02 Not sure University of SARS-CoV-2 (event) 00:00:00 14:04:00 [facility] Alcohol intake 2019-12-17 2019-12-[address] [facility] 00:00:00 00:00:00 non-drinker of Medical Ce nter alcohol (finding) Cigarettes smoked 2019-12-14 2019-12-[address] [facility] current (pack per 00:00:00 00:00:00 Medical Center day) - Reported Cigarette 2019-12-14 2019-12-[address] [facility] pack-years 00:00:00 00:00:[address] [facility] 2019-05-23 2019-05-[address] [facility] Alcohol Frequency 00:00:00 00:00:00 Medical Center History of Social 2019-01-05 2019-01-[address] function 00:00:00 00:00:00 Hospital Sex [birth year] BRITT Lilly Ann-Marie kes 00:00:00 00:00:00 Medical Center Smoking Status Start Date Stop Date Source Never smoked tobacco [facility] Ex-smoker 2018-03-03 00:00:00 2018-03-03 00:00:[address] [facility] Medications Ordered Filled Start Stop Current Ordering Indication Dosage Frequency Signature Comments Components Source Medication Medication Date Date Medication? Clinician (SIG) Name Name aspirin 81 2022-0 Yes [id number] 81mg Take 1 Univers mg chewable 6-08 tablet by ity of tablet 00:00: mouth in [place] [address] the Medical morning. Branch cetirizine 2022-0 Yes [id number] 10mg Take 1 Univers 10 mg 6-08 tablet by ity of tablet 00:00: mouth in [place] the Medical morning. Branch docusate 2022-0 Yes [id number] 100mg Take 1 U nivers 100 mg 6-08 capsule by ity of capsule 00:00: mouth in [place] the Medical morning. Branch foLIC acid 2022-0 Yes [id number] 1mg Take 1 Univers 1 mg tablet 6-08 tablet by ity of 00:00: mouth in [place] the Medical morning. Branch levothyroxi 2022-0 Yes [id number] 150ug Take 1 Univers ne 150 mcg 6-08 tablet by ity of tablet 00:00: mouth [place] 00 every Medical morning. Branch predniSONE 2022-0 Yes [id number] 20mg Take 1 Univers 20 mg 6-08 tablet by ity of tablet 00:00: mouth in [place] the Medical morning Branch and 1 tablet in the evening. sennosides 2022-0 Yes [id number] 8.6mg Take 1 Univers (SENOKOT) 6-08 tablet by ity o f 8.6 mg 00:00: mouth in [facility] 00 the Medical morning Branch and 1 tablet in the evening. sevelamer 2022-0 Yes [id number] 2400mg Take 3 Univers 800 mg 6-08 tablets by ity of tablet 00:00: mouth in [place] the morning Branch and 3 tablets at noon and 3 tablets in the evening. Take with meals. amLODIPine 2022-0 Yes [id number] 10mg Take 1 Univers 10 mg 6-08 tablet by ity of tablet 00:00: mouth in [place] the Medical morning. Branch aspirin 81 2022-0 Yes [id number] 81mg Take 1 Univers mg chewable 6-08 tablet by ity of tablet 00:00: mouth in [place] the Medical morning. Branch cetirizine 2022-0 Yes [id number] 10mg Take 1 Univers 10 mg 6-08 tablet by ity of tablet 00:00: mouth in [place] the Medical morning. Branch docusate 0 Yes [id number] 100mg Take 1 U nivers 100 mg 6-08 capsule by ity of capsule 00:00: mouth in [place] the Medical morning. Branch foLIC acid 0 Yes [id number] 1mg Take 1 Univers 1 mg tablet 6-08 tablet by ity of 00:00: mouth in [place] the Medical morning. Branch levothyroxi 0 Yes [id number] 150ug Take 1 Univers ne 150 mcg 6-08 tablet by ity of tablet 00:00: mouth [place] [address] every Medical morning. Branch predniSONE 0 Yes [id number] 20mg Take 1 Univers 20 mg 6-08 tablet by ity of tablet 00:00: mouth in [place] the Medical morning Branch and 1 tablet in the evening. sennosides 0 Yes [id number] 8.6mg Take 1 Univers (SENOKOT) 6-08 tablet by ity o f 8.6 mg 00:00: mouth in [facility] the morning Branch and 1 tablet in the evening. sevelamer 0 Yes [id number] 2400mg Take 3 Univers 800 mg 6-08 tablets by ity of tablet 00:00: mouth in [place] the Medical morning Branch and 3 tablets at noon and 3 tablets in the evening. Take with meals. amLODIPine 0 Yes [id number] 10mg Take 1 Univers 10 mg 6-08 tablet by ity of tablet 00:00: mouth in [place] the Medical morning. Branch Dose 2021-05 No [...] Unknown 2-13 00:00: 00 levothyroxi 2021-0 Yes [id number] 224ug Take 2 Univers ne 112 mcg 8-23 tablets by ity of tablet 00:00: mouth [place] every Medical morning. Branch levothyroxi 0 Yes [id number] 224ug Take 2 Univers ne 112 mcg 8-23 tablets by ity of tablet 00:00: mouth [place] every Medical morning. Branch levothyroxi 2022-0 Yes [id number] 224ug Take 2 Univers ne 112 mcg 8-23 tablets by ity of tablet 00:00: mouth every Medical morning. [place] levothyroxi 2021-0 Yes [id number] 224ug Take 2 Univers ne 112 mcg [...] 11-20 00:00: 00 &lt 2022-0 No 10 11-20 [...] mg 4-07 tablet 00:00: 00 Simoneuvia 25 2-0 No 1mg [...] tablet by ity of tablet 00:00: mouth [place] 00 every Medical morning. Branch levothyroxi 2021-0 2021- No 1{tbl} Take 1 U nivers ne 200 mcg 3-03 08-23 tablet by ity of tablet 00:00: 00:00 mouth [place] 00 :00 every Medical morning. Branch Januvia 25 2021-0 No 1mg mg tablet 2-04 00:00: 00 Dose 2-0 No Unknown 2-04 00:00: 00 Dose 2021-0 [...] Take 1 Uni vers 25 mcg 2-04 - tablet by ity of tablet 00:00: 00:00 mouth [place] 00 :00 every Medical morning. Branch lisinopriL 2021-0 Yes 5mg Take 5 mg Un capri 5 mg tablet 1-07 by mouth ity of 00:00: daily. [place] [facility] lisinopriL 2021-0 Yes 5mg Take 5 mg Un capri 5 mg tablet -07 by mouth ity of 00:00: daily. [address] lisinopriL 2021-0 Yes 5mg Take 5 mg Un capri 5 mg tablet 1-07 by mouth ity of 00:00: daily. [address] lisinopriL 2021-0 Yes 5mg Take 5 mg Un capri 5 mg tablet 1-07 by mouth ity of 00:00: daily. [address] lisinopriL 2021-0 Yes 5mg Take 5 mg Un capri 5 mg tablet 1-07 by mouth ity of 00:00: daily. [address] amlodipine 2020-05 No 1mg 10 mg 2-30 tablet 00:00: 00 amlodipine 2020-05 No 1mg 10 mg 2-30 tablet 00:00: 00 amlodipine 2020-05 No 1mg 10 mg 2-30 tablet 00:00: 00 Dose 2020- No Unknown 2-30 00:00: 00 Dose 2020-05 [...] 2019-1 No Unknown 2-02 00:00: 00 Dose 2020-1 [...] Lukes 10 MG 17:30: nightly. Medical tablet [address] [place] [address] calcium 2020-0 Yes 3{tbl} Q.[id number] Take [address] carbonate 8-15 [id number] tablets by [facility]ukes (TUMS) 500 17:30: 3D mouth 3 Medi benjy mg chewable 21 (three) Cente r tablet times daily. furosemide 2020-0 Yes 20mg QD Take [address] (LASIX) 20 8-15 by mouth Lukes MG tablet 17:30: daily. Medica l [address] [place] lovastatin 2020-0 Yes 10mg QD Take [address] (MEVACOR) 8-15 by mouth Lukes 10 MG 17:30: nightly. Medical tablet [address] [place] [address] calcium 2020-0 Yes 3{tbl} Q.[id number] Take [address] carbonate 8-15 [id number] tablets by Lukes (TUMS) 500 17:30: 3D mouth 3 Medi benjy mg chewable 21 (three) Cente r tablet times daily. furosemide 2020-0 Yes 20mg QD Take [address] (LASIX) 20 8-15 by mouth Lukes MG tablet 17:30: daily. Medica [address] lovastatin 2020-0 Yes 10mg QD Take [address] (MEVACOR) 8-15 by mouth Lukes 10 MG 17:30: nightly. Medical tablet [address] [place] [address] calcium 2020-0 Yes 3{tbl} Q.[id number] Take [address] carbonate 8-15 [id number] tablets by [facility] (TUMS) 500 17:30: 3D mouth 3 Medi benjy mg chewable 21 (three) Cente r tablet times daily. furosemide 2020-0 Yes 20mg QD Take [address] (LASIX) 20 8-15 by mouth [facility]ukes MG tablet 17:30: [facility]. [facility] [address] lovastatin 2020-0 Yes 10mg QD Take [address] (MEVACOR) 8-15 by mouth Lukes 10 MG 17:30: nightly. Medical tablet [address] [place] [address] calcium 2020-0 Yes 3{tbl} Q.[id number] Take [address] carbonate 8-15 [id number] tablets by [facility] (TUMS) 500 17:30: 3D mouth 3 Medi benjy mg chewable 21 (three) Cente r tablet times daily. furosemide 2020-0 Yes 20mg QD Take [address] (LASIX) 20 8-15 by mouth [facility]ukes MG tablet 17:30: [facility]. [facility] [address] lovastatin 2020-0 Yes 10mg QD Take [address] (MEVACOR) 8-15 by mouth Lukes 10 MG 17:30: nightly. Medical tablet [address] [place] [address] calcium 2020-0 Yes 3{tbl} Q.[id number] Take [address] carbonate 8-15 [id number] tablets by [facility]ukes (TUMS) 500 17:30: 3D mouth 3 Medi benjy mg chewable 21 (three) Cente r tablet times daily. furosemide 2020-0 Yes 20mg QD Take [address] (LASIX) 20 8-15 by mouth Lukes MG tablet 17:30: daily. [address] lovastatin 2020-0 Yes 10mg QD Take [address] (MEVACOR) 8-15 by mouth [facility]ukes 10 MG 17:30: nightly. Medical tablet [address] [place] [address] calcium 2020-0 Yes 3{tbl} Q.[id number] Take [address] carbonate 8-15 [id number] tablets by [facility]ukes (TUMS) 500 17:30: 3D mouth 3 Medi benjy mg chewable 21 (three) Cente r tablet times daily. furosemide 2020-0 Yes 20mg QD Take [address] (LASIX) 20 8-15 by mouth Lukes MG tablet 17:30: daily. [address] lovastatin 2020-0 Yes 10mg QD Take [address] (MEVACOR) 8-15 by mouth Lukes 10 MG 17:30: nightly. Medical tablet [address] [place] [address] calcium 2020-0 Yes 3{tbl} Q.[id number] Take [address] carbonate 8-15 [id number] tablets by [facility]ukes (TUMS) 500 17:30: 3D mouth 3 Medi benjy mg chewable 21 (three) Cente r tablet times daily. furosemide 2020-0 Yes 20mg QD Take [address] (LASIX) 20 8-15 by mouth Lukes MG tablet 17:30: daily. [address] lovastatin 2020-0 Yes 10mg QD Take [address] (MEVACOR) 8-15 by mouth [facility]ukes 10 MG 17:30: nightly. Medical tablet [address] [place] [address] calcium 2020-0 Yes 3{tbl} Q.[id number] Take [address] carbonate 8-15 [id number] tablets by [facility] (TUMS) 500 17:30: 3D mouth 3 Medi benjy mg chewable 21 (three) Cente r tablet times daily. furosemide 2020-0 Yes 20mg QD Take [address] (LASIX) 20 8-15 by mouth Lukes MG tablet 17:30: daily. [address] lovastatin 2020-0 Yes 10mg QD Take [address] (MEVACOR) 8-15 by mouth [facility]ukes 10 MG 17:30: nightly. Medical tablet [address] [place] [address] calcium 2020-0 Yes 3{tbl} Q.[id number] Take [address] carbonate 8-15 [id number] tablets by Lukes (IP GhosterS) 500 17:30: 3D mouth 3 Medi benjy mg chewable 21 (three) Cente r tablet times daily. furosemide 2020-0 Yes 20mg QD Take [address] (LASIX) 20 8-15 by mouth Lukes MG tablet 17:30: [facility]. [facility] [address] lovastatin 2020-0 Yes 10mg QD Take [address] (MEVACOR) 8-15 by mouth Lukes 10 MG 17:30: nightly. Medical tablet [address] [place] [address] calcium 2020-0 Yes 3{tbl} Q.[id number] Take [address] carbonate 8-15 [id number] tablets by [facility]ukes (IP GhosterS) 500 17:30: 3D mouth 3 Medi benjy mg chewable 21 (three) Cente r tablet times daily. furosemide 2020-0 Yes 20mg QD Take [address] (LASIX) 20 8-15 by mouth [facility]ukes MG tablet 17:30: [facility]. [facility] [address] lovastatin 2020-0 Yes 10mg QD Take [address] (MEVACOR) 8-15 by mouth [facility]ukes 10 MG 17:30: nightly. Medical tablet [address] [place] [address] calcium 2020-0 Yes 3{tbl} Q.[id number] Take [address] carbonate 8-15 [id number] tablets by [facility]ukes (IP GhosterS) 500 17:30: 3D mouth 3 Medi benjy mg chewable 21 (three) Cente r tablet times daily. furosemide 2020-0 Yes 20mg QD Take [address] (LASIX) 20 8-15 by mouth [facility]ukes MG tablet 17:30: [facility]. [facility] [address] lovastatin 2020-0 Yes 10mg QD Take [address] (MEVACOR) 8-15 by mouth Lukes 10 MG 17:30: nightly. Medical tablet [address] [place] [address] calcium 2020-0 Yes 3{tbl} Q.[id number] Take [address] carbonate 8-15 [id number] tablets by [facility]ukes (IP GhosterS) 500 17:30: 3D mouth 3 Medi benjy mg chewable 21 (three) Cente r tablet times daily. furosemide 2020-0 Yes 20mg QD Take [address] (LASIX) 20 8-15 by mouth [facility]ukes MG tablet 17:30: daily. [facility] [address] lovastatin 2020-0 Yes 10mg QD Take [address] (MEVACOR) 8-15 by mouth [facility]ukes 10 MG 17:30: nightly. Medical tablet [address] [place] [address] calcium 2020-0 Yes 3{tbl} Q.[id number] Take [address] carbonate 8-15 [id number] tablets by [facility] (TUMS) 500 17:30: 3D mouth 3 Medi benjy mg chewable 21 (three) Cente r tablet times daily. furosemide 2020-0 Yes 20mg QD Take [address] (LASIX) 20 8-15 by mouth Lukes MG tablet 17:30: daily. [address] lovastatin 2020-0 Yes 10mg QD Take [address] (MEVACOR) 8-15 by mouth [facility]ukes 10 MG 17:30: nightly. Medical tablet [address] [place] [address] calcium 2020-0 Yes 3{tbl} Q.[id number] Take [address] carbonate 8-15 [id number] tablets by [facility] (TUMS) 500 17:30: 3D mouth 3 Medi benjy mg chewable 21 (three) Cente r tablet times daily. furosemide 2020-0 Yes 20mg QD Take [address] (LASIX) 20 8-15 by mouth Lukes MG tablet 17:30: daily. [address] lovastatin 2020-0 Yes 10mg QD Take [address] (MEVACOR) 8-15 by mouth Lukes 10 MG 17:30: nightly. Medical tablet [address] [place] [address] calcium 2020-0 Yes 3{tbl} Q.[id number] Take [address] carbonate 8-15 [id number] tablets by [facility]ukes (TUMS) 500 17:30: 3D mouth 3 Medi benjy mg chewable 21 (three) Cente r tablet times daily. furosemide 2020-0 Yes 20mg QD Take [address] (LASIX) 20 8-15 by mouth Lukes MG tablet 17:30: daily. [address] lovastatin 2020-0 Yes 10mg QD Take [address] (MEVACOR) 8-15 by mouth Lukes 10 MG 17:30: nightly. Medical tablet [address] [place] [address] calcium 2020-0 Yes 3{tbl} Q.[id number] Take [address] carbonate 8-15 [id number] tablets by [facility]ukes (TUMS) 500 17:30: 3D mouth 3 Medi benjy mg chewable 21 (three) Cente r tablet times daily. furosemide 2020-0 Yes 20mg QD Take [address] (LASIX) 20 8-15 by mouth Lukes MG tablet 17:30: daily. [address] lovastatin 2020-0 Yes 10mg QD Take [address] (MEVACOR) 8-15 by mouth [facility]ukes 10 MG 17:30: nightly. Medical tablet [address] [place] [address] calcium 2020-0 Yes 3{tbl} Q.[id number] Take [address] carbonate 8-15 [id number] tablets by [facility]ukes (TUMS) 500 17:30: 3D mouth 3 Medi benjy mg chewable 21 (three) Cente r tablet times daily. furosemide 2020-0 Yes 20mg QD Take [address] (LASIX) 20 8-15 by mouth Lukes MG tablet 17:30: daily. [address] lovastatin 2020-0 Yes 10mg QD Take [address] (MEVACOR) 8-15 by mouth Lukes 10 MG 17:30: nightly. Medical tablet [address] [place] [address] calcium 2020-0 Yes 3{tbl} Q.[id number] Take [address] carbonate 8-15 [id number] tablets by [facility]ukes (IP GhosterS) 500 17:30: 3D mouth 3 Medi benjy mg chewable 21 (three) Cente r tablet times daily. furosemide 2020-0 Yes 20mg QD Take [address] (LASIX) 20 8-15 by mouth Lukes MG tablet 17:30: daily. [address] lovastatin 2020-0 Yes 10mg QD Take [address] (MEVACOR) 8-15 by mouth [facility]ukes 10 MG 17:30: nightly. Medical tablet [address] [place] [address] calcium 2020-0 Yes 3{tbl} Q.[id number] Take [address] carbonate 8-15 [id number] tablets by [facility] (TUMS) 500 17:30: 3D mouth 3 Medi benjy mg chewable 21 (three) Cente r tablet times daily. furosemide 2020-0 Yes 20mg QD Take [address] (LASIX) 20 8-15 by mouth Lukes MG tablet 17:30: daily. [address] lovastatin 2020-0 Yes 10mg QD Take [address] (MEVACOR) 8-15 by mouth [facility]ukes 10 MG 17:30: nightly. Medical tablet [address] calcium 2020-0 Yes 3{tbl} Q.[id number] Take [address] carbonate 8-15 [id number] tablets by [facility]ukes (TUMS) 500 17:30: 3D mouth 3 Medi benjy mg chewable 21 (three) Cente r tablet times daily. furosemide 2020-0 Yes 20mg QD Take [address] (LASIX) 20 8-15 by mouth Lukes MG tablet 17:30: daily. Medica l [address] [place] [address] lovastatin 2020-0 Yes 10mg QD Take [address] (MEVACOR) 8-15 by mouth Lukes 10 MG 17:30: nightly. Medical tablet [address] [place] [address] calcium 2020-0 Yes 3{tbl} Q.[id number] Take [address] carbonate 8-15 [id number] tablets by [facility] (TUMS) 500 17:30: 3D mouth 3 Medi bnejy mg chewable 21 (three) Cente r tablet times daily. furosemide 2020-0 Yes 20mg QD Take [address] (LASIX) 20 8-15 by mouth [facility]ukes MG tablet 17:30: [facility]. [facility] [address] lovastatin 2020-0 Yes 10mg QD Take [address] (MEVACOR) 8-15 by mouth Lukes 10 MG 17:30: nightly. Medical tablet [address] [place] [address] calcium 2020-0 Yes 3{tbl} Q.[id number] Take [address] carbonate 8-15 [id number] tablets by [facility] (TUMS) 500 17:30: 3D mouth 3 Medi benjy mg chewable 21 (three) Cente r tablet times daily. furosemide 2020-0 Yes 20mg QD Take [address] (LASIX) 20 8-15 by mouth Lukes MG tablet 17:30: [facility]. [facility] [address] lovastatin 2020-0 Yes 10mg QD Take [address] (MEVACOR) 8-15 by mouth Lukes 10 MG 17:30: nightly. Medical tablet [address] [place] [address] calcium 2020-0 Yes 3{tbl} Q.[id number] Take [address] carbonate 8-15 [id number] tablets by [facility] (TUMS) 500 17:30: 3D mouth 3 Medi benjy mg chewable 21 (three) Cente r tablet times daily. furosemide 2020-0 Yes 20mg QD Take [address] (LASIX) 20 8-15 by mouth Lukes MG tablet 17:30: daily. [address] lovastatin 2020-0 Yes 10mg QD Take [address] (MEVACOR) 8-15 by mouth [facility]ukes 10 MG 17:30: nightly. Medical tablet [address] [place] [address] calcium 2020-0 Yes 3{tbl} Q.[id number] Take [address] carbonate 8-15 [id number] tablets by [facility] (TUMS) 500 17:30: 3D mouth 3 Medi benjy mg chewable 21 (three) Cente r tablet times daily. furosemide 2020-0 Yes 20mg QD Take [address] (LASIX) 20 8-15 by mouth [facility]ukes MG tablet 17:30: daily. [address] lovastatin 2020-0 Yes 10mg QD Take [address] (MEVACOR) 8-15 by mouth [facility]ukes 10 MG 17:30: nightly. Medical tablet [address] [place] [address] calcium 2020-0 Yes 3{tbl} Q.[id number] Take [address] carbonate 8-15 [id number] tablets by [facility] (TUMS) 500 17:30: 3D mouth 3 Medi benjy mg chewable 21 (three) Cente r tablet times daily. furosemide 2020-0 Yes 20mg QD Take [address] (LASIX) 20 8-15 by mouth Lukes MG tablet 17:30: daily. [address] lovastatin 2020-0 Yes 10mg QD Take [address] (MEVACOR) 8-15 by mouth [facility]ukes 10 MG 17:30: nightly. Medical tablet [address] [place] [address] calcium 2020-0 Yes 3{tbl} Q.[id number] Take [address] carbonate 8-15 [id number] tablets by [facility] (TUMS) 500 17:30: 3D mouth 3 Medi benjy mg chewable 21 (three) Cente r tablet times daily. furosemide 2020-0 Yes 20mg QD Take [address] (LASIX) 20 8-15 by mouth [facility]ukes MG tablet 17:30: daily. [address] lovastatin 2020-0 Yes 10mg QD Take [address] (MEVACOR) 8-15 by mouth [facility]ukes 10 MG 17:30: nightly. Medical tablet [address] [place] [address] calcium 2020-0 Yes 3{tbl} Q.[id number] Take [address] carbonate 8-15 [id number] tablets by [facility] (TUMS) 500 17:30: 3D mouth 3 Medi benjy mg chewable 21 (three) Cente r tablet times daily. furosemide 2020-0 Yes 20mg QD Take 20 mg C [facility] [facility] (LASIX) 20 8-15 [facility] tablet 17:30: daily. [facility] [address] lovastatin 2020-0 Yes 10mg QD Take [address] (MEVACOR) 8-15 [facility] 10 MG 17:30: nightly. Medical tablet [address] [place] [address] calcium 2020-0 Yes 3{tbl} Q.[id number] Take [address] [facility] carbonate 8-15 [id number] tablets by [facility] (TUMS) 500 17:30: 3D mouth 3 Medi benjy mg chewable 21 (three) Cente r tablet times daily. lovastatin 2020-0 Yes 10mg QD Take [address] (MEVACOR) 8-15 [facility] 10 MG 17:30: nightly. Medical tablet [address] [place] [address] calcium 2020-0 Yes 3{tbl} Q.[id number] Take [address] [facility] carbonate 8-15 [id number] tablets by [facility] (TUMS) 500 17:30: 3D mouth 3 Medi benjy mg chewable 21 (three) Cente r tablet times daily. furosemide 2020-0 Yes 20mg QD Take [address] (LASIX) 20 8-15 [facility] 17:30: [facility] [address] furosemide 2020-0 Yes 20mg QD Take [address] (LASIX) 20 8-15 [facility] 17:30: [facility] [address] lovastatin 2020-0 Yes 10mg QD Take [address] (MEVACOR) 8-15 [facility] 10 MG 17:30: nightly. Medical tablet [address] [place] [address] calcium 2020-0 Yes 3{tbl} Q.[id number] Take [address] [facility] carbonate 8-15 [id number] tablets by [facility] (TUMS) 500 17:30: 3D mouth 3 Medi benjy mg chewable 21 (three) Cente r tablet times daily. furosemide 2020-0 Yes 20mg QD Take [address] (LASIX) 20 8-15 [facility] tablet 17:30: daily. Medica l [address] [place] lovastatin 2020-0 Yes 10mg QD Take [address] (MEVACOR) 8-15 [facility] 10 MG 17:30: nightly. Medical tablet 21 [place] calcium 2020-0 Yes 3{tbl} Q.[id number] Take [address] [facility] [address] carbonate 8-15 [id number] tablets by [facility] (TUMS) 500 17:30: 3D mouth 3 Medi benjy mg chewable 21 (three) Cente r tablet times daily. furosemide 2020-0 Yes 20mg QD Take [address] (LASIX) 20 8-15 [facility] tablet 17:30: daily. Medica l [address] [place] cyclobenzap 2020-0 Yes 1{tbl} QD Take [address] rine 8-04 tablet by [facility] (FLEXERIL) 00:00: mouth Medica l 10 MG 00 daily. [place] tablet cyclobenzap 2020-0 Yes 1{tbl} QD Take [address] [facility]ine 8-04 tablet by [facility] (FLEXERIL) 00:00: mouth Medica l 10 MG 00 daily. [place] tablet cyclobenzap 2020-0 Yes 1{tbl} QD Take [address] [facility]ine 8-04 tablet by [facility] (FLEXERIL) 00:00: mouth Medica l 10 MG 00 daily. [place] tablet cyclobenzap 2020-0 Yes 1{tbl} QD Take [address] [facility]ine 8-04 tablet by [facility] (FLEXERIL) 00:00: mouth Medica l 10 MG 00 daily. [place] tablet cyclobenzap 2020-0 Yes 1{tbl} QD Take [address] [facility]ine 8-04 tablet by [facility] (FLEXERIL) 00:00: mouth Medica l 10 MG 00 daily. Center tablet cyclobenzap 2020-0 Yes 1{tbl} QD Take [address] [facility]ine 8-04 tablet by [facility] (FLEXERIL) 00:00: mouth Medica l 10 MG 00 daily. [place] tablet cyclobenzap 2020-0 Yes 1{tbl} QD Take [address] [facility]ine 8-04 tablet by [facility] (FLEXERIL) 00:00: mouth Medica l 10 MG 00 daily. [place] tablet cyclobenzap 2020-0 Yes 1{tbl} QD Take [...] Center 3 TIMES A DAY AURYXIA 210 2019-0 Yes TAKE BY [facility] mg iron [...] MG 00:00: mouth Medical tablet 00 daily. [place] atorvastati 2019-0 Yes 1{tbl} QD Take [address] [facility] (LIPITOR) 5-15 tablet by [facility] 10 MG 00:00: mouth Medical tablet 00 daily. [place] atorvastati 0 Yes 1{tbl} QD Take [address] [facility] (LIPITOR) 5-15 tablet by [facility] 10 MG 00:00: mouth Medical tablet 00 daily. [place] atorvastati 2019-0 Yes 1{tbl} QD Take [address] [facility] (LIPITOR) 5-15 tablet by [facility] 10 MG 00:00: mouth Medical tablet 00 daily. [place] atorvastati 0 Yes 1{tbl} QD Take [address] [facility] (LIPITOR) 5-15 tablet by [facility] 10 MG 00:00: mouth Medical tablet 00 daily. [place] atorvastati 2019-0 Yes 1{tbl} QD Take [address] [facility] (LIPITOR) 5-15 tablet by [facility] 10 MG 00:00: mouth Medical tablet 00 daily. [place] atorvastati 2019-0 Yes 1{tbl} QD Take [address] [facility] (LIPITOR) 5-15 tablet by [facility] 10 MG 00:00: mouth Medical tablet 00 daily. [place] atorvastati 2019-0 Yes 1{tbl} QD Take [address] [facility] (LIPITOR) 5-15 tablet by [facility] 10 MG 00:00: mouth Medical tablet 00 daily. [place] atorvastati 2019-0 Yes 1{tbl} QD Take [address] [facility] (LIPITOR) 5-15 tablet by [facility] 10 MG 00:00: mouth Medical tablet 00 daily. [place] atorvastati 2019-0 Yes 1{tbl} QD Take [address] [facility] (LIPITOR) 5-15 tablet by [facility] 10 MG 00:00: mouth Medical tablet 00 daily. [place] atorvastati 2019-0 Yes 1{tbl} QD Take [address] [facility] (LIPITOR) 5-15 tablet by [facility] 10 MG 00:00: mouth Medical tablet 00 daily. [place] atorvastati 0 Yes 1{tbl} QD Take [address] [facility] (LIPITOR) 5-15 tablet by [facility] 10 MG 00:00: mouth Medical tablet 00 daily. [place] atorvastati 2019-0 Yes 1{tbl} QD Take [address] [facility] (LIPITOR) 5-15 tablet by [facility] 10 MG 00:00: mouth Medical tablet 00 daily. [place] atorvastati 0 Yes 1{tbl} QD Take [address] [facility] (LIPITOR) 5-15 tablet by [facility] 10 MG 00:00: mouth Medical tablet 00 daily. [place] atorvastati 2019-0 Yes 1{tbl} QD Take [address] [facility] (LIPITOR) 5-15 tablet by [facility] 10 MG 00:00: mouth Medical tablet 00 daily. [place] atorvastati 2019-0 Yes 1{tbl} QD Take [address] [facility] (LIPITOR) 5-15 tablet by [facility] 10 MG 00:00: mouth Medical tablet 00 daily. [place] atorvastati 2019-0 Yes 1{tbl} QD Take [address] [facility] (LIPITOR) 5-15 tablet by [facility] 10 MG 00:00: mouth Medical tablet 00 daily. [place] atorvastati 2019-0 Yes 1{tbl} QD Take [address] [facility] (LIPITOR) 5-15 tablet by [facility] 10 MG 00:00: mouth Medical tablet 00 daily. [place] atorvastati 2019-0 Yes 1{tbl} QD Take [address] [facility] (LIPITOR) 5-15 tablet by [facility] 10 MG 00:00: mouth Medical tablet 00 daily. [place] atorvastati 2019-0 Yes 1{tbl} QD Take [address] [facility] (LIPITOR) 5-15 tablet by [facility] 10 MG 00:00: mouth Medical tablet 00 daily. [place] atorvastati 2019-0 Yes 1{tbl} QD Take [address] [facility] (LIPITOR) 5-15 tablet by [facility] 10 MG 00:00: mouth Medical tablet 00 daily. [place] atorvastati 2019-0 Yes 1{tbl} QD Take [address] [facility] (LIPITOR) 5-15 tablet by [facility] 10 MG 00:00: mouth Medical tablet 00 daily. [place] atorvastati Yes 1{tbl} QD Take [address] [facility] (LIPITOR) 5-15 tablet by [facility] 10 MG 00:00: mouth Medical tablet 00 daily. [place] atorvastati 0 Yes 1{tbl} QD Take [address] [facility] (LIPITOR) 5-15 tablet by [facility] 10 MG 00:00: mouth Medical tablet 00 daily. [place] atorvastati 0 Yes 1{tbl} QD Take [address] [facility] (LIPITOR) 5-15 tablet by [facility] 10 MG 00:00: mouth Medical tablet 00 daily. [place] atorvastati 0 Yes 1{tbl} QD Take [address] [facility] (LIPITOR) 5-15 tablet by [facility] 10 MG 00:00: mouth Medical tablet 00 daily. [place] atorvastati 2019-0 Yes 1{tbl} QD Take [address] [facility] (LIPITOR) 5-15 tablet by [facility] 10 MG 00:00: mouth Medical tablet 00 daily. [place] atorvastati 0 Yes 1{tbl} QD Take [address] [facility] (LIPITOR) 5-15 tablet by [facility] 10 MG 00:00: mouth Medical tablet 00 daily. [place] atorvastati 0 Yes 1{tbl} QD Take [address] [facility] (LIPITOR) 5-15 tablet by [facility] 10 MG 00:00: mouth Medical tablet 00 daily. [place] atorvastati 2020-0 Yes 1{tbl} QD Take [address] [facility] (LIPITOR) 5-15 tablet by [facility] 10 MG 00:00: mouth Medical tablet 00 daily. [place] atorvastati 2020-0 Yes 1{tbl} QD Take [address] [facility] (LIPITOR) 5-15 tablet by [facility] 10 MG 00:00: mouth Medical tablet 00 daily. [place] aspirin 81 2020-0 No 1mg mg 3-04 [...] MG 00:00: daily . Medical tablet 00 [place] amLODIPine 2019-0 Yes 10mg QD Take [address] (NORVASC) 1-16 [facility] 10 MG 00:00: daily . Medical tablet 00 [place] amLODIPine 2020-0 Yes 10mg QD Take [address] (NORVASC) 1-16 [facility] 10 MG 00:00: daily . Medical tablet 00 [place] amLODIPine 2019-0 Yes 10mg QD Take [address] (NORVASC) 1-16 [facility] 10 MG 00:00: daily . Medical tablet 00 [place] amLODIPine 2020-0 Yes 10mg QD Take [address] (NORVASC) 1-16 [facility] 10 MG 00:00: daily . Medical tablet 00 [place] amLODIPine 2020-0 Yes 10mg QD Take [address] (NORVASC) 1-16 [facility] 10 MG 00:00: daily . Medical tablet 00 [place] amLODIPine 2019-0 Yes 10mg QD Take [address] (NORVASC) 1-16 [facility] 10 MG 00:00: daily . Medical tablet 00 [place] amLODIPine 2020-0 Yes 10mg QD Take [address] (NORVASC) 1-16 [facility] 10 MG 00:00: daily . Medical tablet 00 [place] amLODIPine 2020-0 Yes 10mg QD Take [address] (NORVASC) 1-16 [facility] 10 MG 00:00: daily . Medical tablet 00 [place] amLODIPine 2020-0 Yes 10mg QD Take [address] (NORVASC) 1-16 [facility] 10 MG 00:00: daily . Medical tablet 00 [place] amLODIPine 2020-0 Yes 10mg QD Take [address] (NORVASC) 1-16 [facility] 10 MG 00:00: daily . Medical tablet 00 [place] amLODIPine 2020-0 Yes 10mg QD Take [address] (NORVASC) 1-16 [facility] 10 MG 00:00: daily . Medical tablet 00 [place] amLODIPine 2020-0 Yes 10mg QD Take [address] (NORVASC) 1-16 [facility] 10 MG 00:00: daily . Medical tablet 00 [place] amLODIPine 2020-0 Yes 10mg QD Take [address] (NORVASC) 1-16 [facility] 10 MG 00:00: daily . Medical tablet 00 [place] amLODIPine 2020-0 Yes 10mg QD Take [address] (NORVASC) 1-16 [facility] 10 MG 00:00: daily . Medical tablet 00 [place] amLODIPine 2020-0 Yes 10mg QD Take [address] (NORVASC) 1-16 [facility] 10 MG 00:00: daily . Medical tablet 00 [place] amLODIPine 2020-0 Yes 10mg QD Take [address] (NORVASC) 1-16 [facility] 10 MG 00:00: daily . Medical tablet 00 [place] amLODIPine 2020-0 Yes 10mg QD Take [address] (NORVASC) 1-16 [facility] 10 MG 00:00: daily . Medical tablet 00 [place] amLODIPine 2020-0 Yes 10mg QD Take [address] (NORVASC) 1-16 [facility] 10 MG 00:00: daily . Medical tablet 00 [place] amLODIPine 2020-0 Yes 10mg QD Take [address] (NORVASC) 1-16 [facility] 10 MG 00:00: daily . Medical tablet 00 [place] amLODIPine 2020-0 Yes 10mg QD Take [address] (NORVASC) 1-16 [facility] 10 MG 00:00: daily . Medical tablet 00 [place] amLODIPine 2020-0 Yes 10mg QD Take [address] (NORVASC) 1-16 [facility] 10 MG 00:00: daily . Medical tablet 00 [place] amLODIPine 2020-0 Yes 10mg QD Take [address] (NORVASC) 1-16 [facility] 10 MG 00:00: daily . Medical tablet 00 [place] amLODIPine 2020-0 Yes 10mg QD Take [address] (NORVASC) 1-16 [facility] 10 MG 00:00: daily . Medical tablet 00 [place] amLODIPine 2020-0 Yes 10mg QD Take [address] (NORVASC) 1-16 [facility] 10 MG 00:00: daily . Medical tablet 00 [place] amLODIPine 2020-0 Yes 10mg QD Take [address] (NORVASC) 1-16 [facility] 10 MG 00:00: daily . Medical tablet 00 [place] amLODIPine 2020-0 Yes 10mg QD Take [address] (NORVASC) 1-16 [facility] 10 MG 00:00: daily . Medical tablet 00 [place] amLODIPine 2020-0 Yes 10mg QD Take [address] (NORVASC) 1-16 [facility] 10 MG 00:00: daily . Medical tablet [address] [place] [address] amLODIPine 2020-0 Yes 10mg QD Take [address] (NORVASC) 1-16 [facility] 10 MG 00:00: daily . Medical tablet [address] [place] [address] amLODIPine 2020-0 Yes 10mg QD Take [address] (NORVASC) 1-16 [facility] 10 MG 00:00: daily . Medical tablet 00 [place] amLODIPine 2020-0 Yes 10mg QD Take [address] (NORVASC) 1-16 [facility] 10 MG 00:00: daily . Medical tablet [address] [place] [address] aspirin 81 2020-0 No 1mg mg 1-10 [...] tablet 00:00: 00 sevelamer 2020-0 Yes 800mg Q.[id number] [address] [facility] (RENVELA) 1-10 [id number] (three) [facility] 800 mg 00:00: 3D times Medical tablet 00 daily . [place] UNITHROID 2020-0 Yes 125ug QD Take [address] [facility] 125 mcg 1-10 mcg by [facility] tablet 00:00: mouth Medical 00 nightly . [place] sevelamer 2020-0 Yes 800mg Q.[id number] [address] [facility] (RENVELA) 1-10 [id number] (three) [facility] 800 mg 00:00: 3D times Medical tablet 00 daily . [place] UNITHROID 2020-0 Yes 125ug QD Take [address] [facility] [address] 125 mcg 1-10 mcg by [facility] tablet 00:00: mouth Medical 00 nightly . [place] sevelamer 2020-0 Yes 800mg Q.[id number] [address] [facility] (RENVELA) 1-10 [id number] (three) [facility] 800 mg 00:00: 3D times Medical tablet 00 daily . [place] UNITHROID 2020-0 Yes 125ug QD Take [address] [facility] [address] 125 mcg 1-10 mcg by [facility] tablet 00:00: mouth Medical 00 nightly . [place] sevelamer 2020-0 Yes 800mg Q.[id number] [address] [facility] (RENVELA) 1-10 [id number] (three) [facility] 800 mg 00:00: 3D times Medical tablet 00 daily . [place] UNITHROID 2020-0 Yes 125ug QD Take [address] [facility] [address] 125 mcg 1-10 mcg by [facility] tablet 00:00: mouth Medical 00 nightly . [place] sevelamer 2020-0 Yes 800mg Q.[id number] [address] [facility] (RENVELA) 1-10 [id number] (three) [facility] 800 mg 00:00: 3D times Medical tablet 00 daily . [place] UNITHROID 2020-0 Yes 125ug QD Take [address] [facility] [address] 125 mcg 1-10 mcg by [facility] tablet 00:00: mouth Medical 00 nightly . [place] sevelamer 2020-0 Yes 800mg Q.[id number] [address] [facility] (RENVELA) 1-10 [id number] (three) [facility] 800 mg 00:00: 3D times Medical tablet 00 daily . [place] UNITHROID 2020-0 Yes 125ug QD Take [address] [facility] [address] 125 mcg 1-10 mcg by [facility] tablet 00:00: mouth Medical 00 nightly . [place] sevelamer 2020-0 Yes 800mg Q.[id number] [address] [facility] (RENVELA) 1-10 [id number] (three) [facility] 800 mg 00:00: 3D times Medical tablet 00 daily . [place] UNITHROID 2020-0 Yes 125ug QD Take [address] [facility] [address] 125 mcg 1-10 mcg by [facility] tablet 00:00: mouth Medical 00 nightly . [place] sevelamer 2020-0 Yes 800mg Q.[id number] [address] [facility] (RENVELA) 1-10 [id number] (three) [facility] 800 mg 00:00: 3D times Medical tablet 00 daily . [place] UNITHROID 2020-0 Yes 125ug QD Take [address] [facility] [address] 125 mcg 1-10 mcg by [facility] tablet 00:00: mouth Medical 00 nightly . [place] sevelamer 2020-0 Yes 800mg Q.[id number] [address] [facility] (RENVELA) 1-10 [id number] (three) [facility] 800 mg 00:00: 3D times Medical tablet 00 daily . [place] UNITHROID 2020-0 Yes 125ug QD Take [address] [facility] [address] 125 mcg 1-10 mcg by [facility] tablet 00:00: mouth Medical 00 nightly . [place] sevelamer 2020-0 Yes 800mg Q.[id number] [address] [facility] (RENVELA) 1-10 [id number] (three) [facility] 800 mg 00:00: 3D times Medical tablet 00 daily . [place] UNITHROID 2020-0 Yes 125ug QD Take [address] [facility] [address] 125 mcg 1-10 mcg by [facility] tablet 00:00: mouth Medical 00 nightly . [place] sevelamer 2020-0 Yes 800mg Q.[id number] [address] [facility] (RENVELA) 1-10 [id number] (three) [facility] 800 mg 00:00: 3D times Medical tablet 00 daily . [place] UNITHROID 2020-0 Yes 125ug QD Take [address] [facility] [address] 125 mcg 1-10 mcg by [facility] tablet 00:00: mouth Medical 00 nightly . [place] sevelamer 2020-0 Yes 800mg Q.[id number] [address] [facility] (RENVELA) 1-10 [id number] (three) [facility] 800 mg 00:00: 3D times Medical tablet 00 daily . [place] UNITHROID 2020-0 Yes 125ug QD Take [address] [facility] [address] 125 mcg 1-10 mcg by [facility] tablet 00:00: mouth Medical 00 nightly . [place] sevelamer 2020-0 Yes 800mg Q.[id number] [address] [facility] (RENVELA) 1-10 [id number] (three) [facility] 800 mg 00:00: 3D times Medical tablet 00 daily . [place] UNITHROID 2020-0 Yes 125ug QD Take [address] [facility] [address] 125 mcg 1-10 mcg by [facility] tablet 00:00: mouth Medical 00 nightly . [place] sevelamer 2020-0 Yes 800mg Q.[id number] [address] [facility] (RENVELA) 1-10 [id number] (three) [facility] 800 mg 00:00: 3D times Medical tablet 00 daily . [place] UNITHROID 2020-0 Yes 125ug QD Take [address] [facility] [address] 125 mcg 1-10 mcg by [facility] tablet 00:00: mouth Medical 00 nightly . [place] sevelamer 2020-0 Yes 800mg Q.[id number] [address] [facility] (RENVELA) 1-10 [id number] (three) [facility] 800 mg 00:00: 3D times Medical tablet 00 daily . [place] UNITHROID 2020-0 Yes 125ug QD Take [address] [facility] [address] 125 mcg 1-10 mcg by [facility] tablet 00:00: mouth Medical 00 nightly . [place] sevelamer 2020-0 Yes 800mg Q.[id number] [address] [facility] (RENVELA) 1-10 [id number] (three) [facility] 800 mg 00:00: 3D times Medical tablet 00 daily . [place] UNITHROID 2020-0 Yes 125ug QD Take [address] [facility] [address] 125 mcg 1-10 mcg by [facility] tablet 00:00: mouth Medical 00 nightly . [place] sevelamer 2020-0 Yes 800mg Q.28075325 [address] [facility] (RENVELA) 1-10 [id number] (three) [facility] 800 mg 00:00: 3D times Medical tablet 00 daily . [place] UNITHROID 2020-0 Yes 125ug QD Take [address] [facility] [address] 125 mcg 1-10 mcg by [facility] tablet 00:00: mouth Medical 00 nightly . [place] sevelamer 2020-0 Yes 800mg Q.[id number] [address] [facility] (RENVELA) 1-10 [id number] (three) [facility] 800 mg 00:00: 3D times Medical tablet 00 daily . [place] UNITHROID 2020-0 Yes 125ug QD Take [address] [facility] [address] 125 mcg 1-10 mcg by [facility] tablet 00:00: mouth Medical 00 nightly . [place] sevelamer 2020-0 Yes 800mg Q.[id number] [address] [facility] (RENVELA) 1-10 [id number] (three) [facility] 800 mg 00:00: 3D times Medical tablet 00 daily . [place] UNITHROID 2020-0 Yes 125ug QD Take [address] [facility] [address] 125 mcg 1-10 mcg by [facility] tablet 00:00: mouth Medical 00 nightly . [place] sevelamer 2020-0 Yes 800mg Q.[id number] [address] [facility] (RENVELA) 1-10 [id number] (three) [facility] 800 mg 00:00: 3D times Medical tablet 00 daily . [place] UNITHROID 2020-0 Yes 125ug QD Take [address] [facility] [address] 125 mcg 1-10 mcg by [facility] tablet 00:00: mouth Medical 00 nightly . [place] sevelamer 2020-0 Yes 800mg Q.[id number] [address] [facility] (RENVELA) 1-10 [id number] (three) [facility] 800 mg 00:00: 3D times Medical tablet 00 daily . [place] UNITHROID 2020-0 Yes 125ug QD Take [address] [facility] [address] 125 mcg 1-10 mcg by [facility] tablet 00:00: mouth Medical 00 nightly . [place] sevelamer 2020-0 Yes 800mg Q.[id number] [address] [facility] (RENVELA) 1-10 [id number] (three) [facility] 800 mg 00:00: 3D times Medical tablet 00 daily . [place] UNITHROID 2020-0 Yes 125ug QD Take [address] [facility] [address] 125 mcg 1-10 mcg by [facility] tablet 00:00: mouth Medical 00 nightly . [place] sevelamer 2020-0 Yes 800mg Q.[id number] [address] [facility] (RENVELA) 1-10 [id number] (three) [facility] 800 mg 00:00: 3D times Medical tablet 00 daily . [place] UNITHROID 2020-0 Yes 125ug QD Take [address] [facility] [address] 125 mcg 1-10 mcg by [facility] tablet 00:00: mouth Medical 00 nightly . [place] sevelamer 2020-0 Yes 800mg Q.[id number] [address] [facility] (RENVELA) 1-10 [id number] (three) [facility] 800 mg 00:00: 3D times Medical tablet 00 daily . [place] UNITHROID 2020-0 Yes 125ug QD Take [address] [facility] [address] 125 mcg 1-10 mcg by [facility] tablet 00:00: mouth Medical 00 nightly . [place] sevelamer 2020-0 Yes 800mg Q.[id number] [address] [facility] (RENVELA) 1-10 [id number] (three) [facility] 800 mg 00:00: 3D times Medical tablet 00 daily . [place] UNITHROID 2020-0 Yes 125ug QD Take [address] [facility] [address] 125 mcg 1-10 mcg by [facility] tablet 00:00: mouth Medical 00 nightly . [place] sevelamer 2020-0 Yes 800mg Q.[id number] [address] [facility] (RENVELA) 1-10 [id number] (three) [facility] 800 mg 00:00: 3D times Medical tablet 00 daily . [place] UNITHROID 2020-0 Yes 125ug QD Take [address] [facility] [address] 125 mcg 1-10 mcg by [facility] tablet 00:00: mouth Medical 00 nightly . [place] sevelamer 2020-0 Yes 800mg Q.[id number] [address] [facility] (RENVELA) 1-10 [id number] (three) [facility] 800 mg 00:00: 3D times Medical tablet 00 daily . [place] sevelamer 2020-0 Yes 800mg Q.[id number] [address] [facility] (RENVELA) 1-10 [id number] (three) [facility] 800 mg 00:00: 3D times Medical tablet 00 daily . [place] UNITHROID 2020-0 Yes 125ug QD Take [address] [facility] [address] 125 mcg 1-10 mcg by [facility] tablet 00:00: mouth Medical 00 nightly . [place] UNITHROID 2020-0 Yes 125ug QD Take [address] [facility] [address] 125 mcg 1-10 mcg by [facility] tablet 00:00: mouth Medical 00 nightly . [place] sevelamer 2020-0 Yes 800mg Q.[id number] [address] [facility] (RENVELA) 1-10 [id number] (three) [facility] 800 mg 00:00: 3D times Medical tablet 00 daily . [place] UNITHROID 2020-0 Yes 125ug QD Take [address] [facility] [address] 125 mcg 1-10 mcg by [facility] tablet 00:00: mouth Medical 00 nightly . [place] sevelamer 2020-0 Yes 800mg Q.[id number] [address] [facility] (RENVELA) 1-10 [id number] (three) [facility] 800 mg 00:00: 3D times Medical tablet 00 daily . [place] UNITHROID 2020-0 Yes 125ug QD Take [address] [facility] [address] 125 mcg 1-10 mcg by [facility] tablet 00:00: mouth Medical 00 nightly . [place] sevelamer 2020-0 Yes 800mg Q.[id number] [address] [facility] (RENVELA) 1-10 [id number] (three) [facility] 800 mg 00:00: 3D times Medical tablet 00 daily . [place] UNITHROID 2020-0 Yes 125ug QD Take [address] [facility] [address] 125 mcg 1-10 mcg by [facility] tablet 00:00: mouth Medical 00 nightly . [place] amlodipine 2020-0 No 1mg 10 mg 1-08 [...] mg 1-19 tablet 00:00: 00 aspirin 81 2019- No 1mg mg 1-19 tablet,girma 00:00: yed [...] 1mg mg 1-19 tablet,girma 00:00: yed release amlodipine 2018- No 1mg 10 mg 1-19 [...] 10 mg 1-12 tablet 00:00: 00 loratadine 2018-1 No 1mg 10 mg 1-12 tablet 00:00: 00 benzonatate 2018-1 No 1mg 200 mg 1-12 capsule 00:00: 00 benzonatate 2018-1 No 1mg 200 mg 1-12 capsule 00:00: 00 loratadine 2019-1 No 1mg 10 mg 1-12 tablet 00:00: 00 benzonatate 2018-1 No 1mg 200 mg 1-12 capsule 00:00: 00 loratadine 2019-1 No 1mg 10 mg 1-12 tablet 00:00: [...] 1-12 capsule 00:00: 00 gabapentin 2018-05 Yes [id number] 100mg Take 1 [facility] 100 mg 0-22 capsule by [facility] capsule 00:00: mouth 3 [place] 00 (three) Medical times Branch daily. gabapentin 2018-05 Yes [id number] 100mg Take 1 [facility] 100 mg 0-22 capsule by [facility] of capsule 00:00: mouth 3 [place] 00 (three) Medical times Branch daily. gabapentin 2018-05 Yes [id number] 100mg Take 1 [facility] 100 mg 0-22 capsule by [facility] of capsule 00:00: mouth 3 [place] 00 (three) Medical times Branch daily. gabapentin 2018-05 Yes [id number] 100mg Take 1 [facility] 100 mg 0-22 capsule by [facility] of capsule 00:00: mouth 3 [place] 00 (three) Medical times Branch daily. gabapentin 2018-05 Yes [id number] 100mg Take 1 [facility] 100 mg 0-22 capsule by [facility] of capsule 00:00: mouth 3 [place] 00 (three) Medical times Branch daily. aspirin [...] levothyroxi 2019-1 No 1mcg ne 200 mcg 0-01 tablet [...] mcg 0-01 tablet 00:00: 00 amLODIPine Yes [id number] 10mg Take 1 [facility] 10 mg 9-16 tablet by [facility] of tablet 00:00: mouth [place] 00 daily. Medical Branch aspirin 81 Yes [id number] 81mg Take 1 [facility] mg chewable 9-16 tablet by [facility] of tablet 00:00: mouth [place] 00 daily. Medical Branch atorvastati Yes [id number] 40mg Take 2 [facility] n 20 mg 9-16 tablets by [facility] of tablet 00:00: mouth at [place] 00 bedtime. Medical Branch calcium Yes [id number] 1000mg Take 2 [facility] carbonate 9-16 tablets by ity of (CALCIUM 00:00: mouth 3 [place] 500) 500 mg 00 (three) Medic al calcium times Branch (1,250 mg) daily with tablet meals. meclizine 2019-0 Yes [id number] 25mg Take 2 [facility] n[facility] 12.5 mg 9-16 tablets by ity of tablet 00:00: mouth 3 [place] 00 (three) Medical times Branch daily as needed for Dizziness. Para mareo (for dizziness) sevelamer 2019-0 Yes [id number] 800mg Take 1 [facility] 800 mg 9-16 tablet by [facility] of tablet 00:00: mouth 3 [place] 00 (three) Medical times Branch daily with meals. amLODIPine 2018-0 Yes [id number] 10mg Take 1 [facility] 10 mg 9-16 tablet by [facility]y of tablet 00:00: mouth [place] 00 daily. Medical Branch aspirin 81 2018-0 Yes [id number] 81mg Take 1 [facility] mg chewable 9-16 tablet by [facility]y of tablet 00:00: mouth [place] 00 daily. Medical Branch atorvastati Yes [id number] 40mg Take 2 [facility] n 20 mg 9-16 tablets by [facility] of tablet 00:00: mouth at [place] 00 bedtime. Medical Branch calcium 2018-0 Yes [id number] 1000mg Take 2 [facility] carbonate 9-16 tablets by ity of (CALCIUM 00:00: mouth 3 [place] 500) 500 mg 00 (three) Medic al calcium times Branch (1,250 mg) daily with tablet meals. meclizine 2018-0 Yes [id number] 25mg Take 2 [facility] 12.5 mg 9-16 tablets by [facility] of tablet 00:00: mouth 3 [place] 00 (three) Medical times Branch daily as needed for Dizziness. Para mare[place] (for dizziness) sevelamer 2018-0 Yes [id number] 800mg Take 1 [facility] 800 mg 9-16 tablet by [facility] of tablet 00:00: mouth 3 [place] 00 (three) Medical times Branch daily with meals. amLODIPine 2018-0 Yes [id number] 10mg Take 1 [facility] 10 mg 9-16 tablet by [facility] of tablet 00:00: mouth [place] 00 daily. Medical Branch aspirin 81 2018-0 Yes [id number] 81mg Take 1 [facility] mg chewable 9-16 tablet by [facility] of tablet 00:00: mouth [place] 00 daily. Medical Branch atorvastati 2018-0 Yes [id number] 40mg Take 2 [facility] n 20 mg 9-16 tablets by ity of tablet 00:00: mouth at [place] 00 bedtime. Medical [facility] calcium 2018-0 Yes [id number] 1000mg Take 2 [facility] n[facility] carbonate 9-16 tablets by ity of (CALCIUM 00:00: mouth 3 [place] 500) 500 mg 00 (three) Medic al calcium times Branch (1,250 mg) daily with tablet meals. meclizine 2018-0 Yes [id number] 25mg Take 2 [facility] n[facility] 12.5 mg 9-16 tablets by ity of tablet 00:00: mouth 3 [place] 00 (three) Medical times Branch daily as needed for Dizziness. Para mareo (for dizziness) sevelamer 2018-0 Yes [id number] 800mg Take 1 [facility] 800 mg 9-16 tablet by [facility]y of tablet 00:00: mouth 3 [place] 00 (three) Medical times Branch daily with meals. amLODIPine 2018-0 Yes [id number] 10mg Take 1 U nivers 10 mg 9-16 tablet by ity of tablet 00:00: mouth [place] 00 daily. Medical Branch aspirin 81 2018-0 Yes [id number] 81mg Take 1 [facility] mg chewable 9-16 tablet by ity of tablet 00:00: mouth [place] 00 daily. Medical Branch atorvastati 2018-0 Yes [id number] 40mg Take 2 [facility] n 20 mg 9-16 tablets by ity of tablet 00:00: mouth at [place] 00 bedtime. Medical Branch calcium 2018-0 Yes [id number] 1000mg Take 2 U nivers carbonate 9-16 tablets by ity of (CALCIUM 00:00: mouth 3 [place] 500) 500 mg 00 (three) Medic al calcium times Branch (1,250 mg) daily with tablet meals. meclizine 2018-0 Yes [id number] 25mg Take 2 U nivers 12.5 mg 9-16 tablets by ity of tablet 00:00: mouth 3 [place] 00 (three) Medical times Branch daily as needed for Dizziness. Para mareo (for dizziness) sevelamer 2018-0 Yes [id number] 800mg Take 1 [facility] 800 mg 9-16 tablet by ity of tablet 00:00: mouth 3 [place] 00 (three) Medical times Branch daily with meals. amLODIPine 2018-0 Yes [id number] 10mg Take 1 U nivers 10 mg 9-16 tablet by ity of tablet 00:00: mouth [place] 00 daily. Medical Branch aspirin 81 2019-0 Yes [id number] 81mg Take 1 [facility] mg chewable 9-16 tablet by ity of tablet 00:00: mouth [place] 00 daily. Medical Branch atorvastati 2018- Yes [id number] 40mg Take 2 [facility] n 20 mg 9-16 tablets by ity of tablet 00:00: mouth at [place] 00 bedtime. Medical Branch calcium 2018- Yes [id number] 1000mg Take 2 U nivers carbonate 9-16 tablets by ity of (CALCIUM 00:00: mouth 3 [place] 500) 500 mg 00 (three) Medic al calcium times Branch (1,250 mg) daily with tablet meals. meclizine 2018- Yes [id number] 25mg Take 2 U nivers 12.5 mg 9-16 tablets by ity of tablet 00:00: mouth 3 [place] 00 (three) Medical times Branch daily as needed for Dizziness. Para mareo (for dizziness) sevelamer 2018- Yes [id number] 800mg Take 1 [facility] 800 mg 9-16 [...] 15:20: nightly. Hospita tablet 50 l levothyroxi 0 Yes 150ug QD Take 150 M ethodi ne 9-[address] (SYNTHROID, 15:20: mouth Hospi ta LEVOXYL) 50 daily. l 150 mcg tablet amLODIPine Yes 10mg QD Take 10 mg [...] 00:00:00 Padminia COVID-19 2021-12-02 Completed Vaccine 00:00:00 Roger COVID-19 2021-12-02 Completed Vaccine 00:00:00 Roger COVID-19 2021-02-19 Completed Vaccine 00:00:00 Roger COVID-19 2021-02-19 Completed Vaccine 00:00:00 Moderna COVID-19 [...] ical PPSV23 (PNEUMOVAX) Branch Pneumococcal 2018-03-07 Completed [place] o f Polysaccharide, 00:00:00 [place] [facility] PPSV23 (PNEUMOVAX) Branch Pneumococcal 2018-03-07 Completed [place] o f Polysaccharide, 00:00:00 [place] [facility] ical PPSV23 (PNEUMOVAX) [place] Vital Signs Vital Name Observation Time Observation Value Comments Source HEIGHT 2019-11-07 00:00:00 162.6 cm WEIGHT 2019-11-07 00:00:00 76.4 kg Systolic blood 2021-12-02 19:06:00 116 mm[Hg] [facility] Diastolic blood 2021-12-02 19:06:00 68 mm[Hg] [facility] Heart rate 2021-12-02 19:06:00 69 /min [facility] Body height 2021-12-02 19:06:00 162.6 cm [facility] Body weight 2021-12-02 19:06:00 78.019 kg [facility] BMI 2021-12-02 19:06:00 29.52 kg/m2 [facility] Oxygen saturation in 2021-12-02 19:06:00 95 /min [facility] Arterial blood by [facility] Pulse oximetry Branch HEIGHT 2019-11-07 [...] EXTERNAL PROVIDER 2022-10-15 05:01:00 Doctor Unassigned, No [facility] RECORDS Name Medical Branch REFERRAL- 2022-05-28 06:01:00 Doctor Unassigned, No [facility] REQUEST/RESPONSE Name Medical Branch [id number] 2022-04-17 00:00:00 [facility] [id number] 2022-04-08 00:00:00 [facility] Plan of Care Planned Activity Planned Date Details Comments Source Future Scheduled 2023-01-01 Influenza Vaccine (#1) [facility] 00:[facility]:00 [code = Influenza Vaccine [facility] (#1)] Future Scheduled 2023-01-01 INFLUENZA VACCINE (Season [facility] 00:00:00 Ended) [code = INFLUENZA Med ical Center VACCINE (Season Ended)] Future Scheduled 2023-01-01 INFLUENZA VACCINE (Season [facility] 00:00:00 Ended) [code = INFLUENZA Med ical Center VACCINE (Season Ended)] Future Scheduled 2023-01-01 INFLUENZA VACCINE (Season [facility] 00:00:00 Ended) [code = INFLUENZA Med ical Center VACCINE (Season Ended)] Future Scheduled 2023-01-01 INFLUENZA VACCINE (Season [facility] 00:00:00 Ended) [code = INFLUENZA Med ical Center VACCINE (Season Ended)] Future Scheduled 2023-01-01 INFLUENZA VACCINE (Season [facility] 00:00:00 Ended) [code = INFLUENZA Med ical Center VACCINE (Season Ended)] Future Scheduled 2023-01-01 INFLUENZA VACCINE (Season [facility] 00:00:00 Ended) [code = INFLUENZA Med ical Center VACCINE (Season Ended)] Future Scheduled 2023-01-01 INFLUENZA VACCINE (Season [facility] 00:00:00 Ended) [code = INFLUENZA Med ical Center VACCINE (Season Ended)] Future Scheduled 2023-01-01 INFLUENZA VACCINE (Season [facility] 00:00:00 Ended) [code = INFLUENZA Med ical Center VACCINE (Season Ended)] Future Scheduled 2023-01-01 INFLUENZA VACCINE (Season [facility] 00:00:00 Ended) [code = INFLUENZA Med ical Center VACCINE (Season Ended)] Future Scheduled 2023-01-01 Influenza Vaccine (Season [facility] 00:00:00 Ended) [code = Influenza Med ical Center Vaccine (Season Ended)] Future Scheduled 2023-01-01 Influenza Vaccine (Season [facility] 00:00:00 Ended) [code = Influenza Med ical Center Vaccine (Season Ended)] Future Scheduled 2023-01-01 Influenza Vaccine (#1[facility] 00:00:00 [code = Influenza Vaccine Me dical Center (#1)] Future Scheduled 2023-01-01 Influenza Vaccine (#1) [facility] 00:00:00 [code = Influenza Vaccine Me dical Center (#1)] Future Scheduled 2022-12-02 [facility] 10:27:56 neoplasm of colon Hospital (procedure) [code = 304494799] Future Scheduled 2022-12-02 Scre[facility] 10:27:56 neoplasm of colon Hospital (procedure) [code = 686502238] Future Scheduled 2022-12-02 Scre[facility] 10:27:56 neoplasm of colon Hospital (procedure) [code = 052224990] Future Scheduled 2022-12-02 COVID-19 [facility]56 [code = COVID-19 VACCINE Hos pital (#1)] Future Scheduled 2022-12-02 Screening for [facility] 10:27:56 neoplasm of colon Hospital (procedure) [code = 913112159] Future Scheduled 2022-12-02 Screening for [facility] 10:27:56 neoplasm of colon Hospital (procedure) [code = 897599762] Future Scheduled 2022-12-02 SHINGLES VACCINES (1 of [facility] 10:27:56 2) [code = SHINGLES Hospital VACCINES (1 of 2)] Future Scheduled 2022-12-02 INFLUENZA VACCINE [code = [facility] 10:27:56 INFLUENZA VACCINE] Hospital Future Scheduled 2022-12-02 Screening for malignant [facility] 10:27:56 neoplasm of colon Hospital (procedure) [code = 277592678] Future Scheduled 2022-12-02 Screening for malignant [facility] 10:27:56 neoplasm of colon Hospital (procedure) [code = 542020928] Future Scheduled 2022-12-02 Screening for malignant [facility] 10:27:56 neoplasm of colon Hospital (procedure) [code = 620393570] Future Scheduled 2022-12-02 COVID-19 VACCINE [facility]1) [facility] 10:27:56 [code = COVID-19 VACCINE Hos pital (#1)] Future Scheduled 2022-12-02 Screening for [facility] 10:27:56 neoplasm of colon Hospital (procedure) [code = 371012980] Future Scheduled 2022-12-02 Screening for [facility] 10:27:56 neoplasm of colon Hospital (procedure) [code = 945907956] Future Scheduled 2022-12-02 SHINGLES VACCINES (1 of [facility] 10:27:56 2) [code = SHINGLES Hospital VACCINES (1 of 2)] Future Scheduled 2022-12-02 INFLUENZA VACCINE [code = [facility] 10:27:56 INFLUENZA VACCINE] Hospital Future Scheduled 2022-10-18 Screening for [facility] 02:19:11 neoplasm of colon Hospital (procedure) [code = 496633699] Future Scheduled 2022-10-18 Screening for [facility] 02:19:11 neoplasm of colon Hospital (procedure) [code = 717010920] Future Scheduled 2022-10-18 Scre[facility] 02:19:11 neoplasm of colon Hospital (procedure) [code = 822340633] Future Scheduled 2022-10-18 COVID-19 VACCINE [facility]) [facility] 02:19:11 [code = COVID-19 VACCINE Hos pital (#1)] Future Scheduled 2022-10-18 Screening for [facility] 02:19:11 neoplasm of colon Hospital (procedure) [code = 206712482] Future Scheduled 2022-10-18 Screening for [facility] 02:19:11 neoplasm of colon Hospital (procedure) [code = 519630646] Future Scheduled 2022-10-18 SHINGLES VACCINES (1 of [facility] 02:19:11 2) [code = SHINGLES Hospital VACCINES (1 of 2)] Future Scheduled 2022-10-18 INFLUENZA VACCINE [code = [facility] 02:19:11 INFLUENZA VACCINE] Hospital Future Scheduled 2022-10-18 Screening for malignant [facility] 02:19:11 neoplasm of colon Hospital (procedure) [code = 561103452] Future Scheduled 2022-10-18 Screening for [facility] 02:19:11 neoplasm of colon Hospital (procedure) [code = 839274313] Future Scheduled 2022-10-18 Screening for [facility] 02:19:11 neoplasm of colon Hospital (procedure) [code = 747509771] Future Scheduled 2022-10-18 COVID-19 VACCINE [facility]1) [facility] 02:19:11 [code = COVID-19 VACCINE Hos pital (#1)] Future Scheduled 2022-10-18 Screening for [facility] 02:19:11 neoplasm of colon Hospital (procedure) [code = 111999509] Future Scheduled 2022-10-18 Screening for malignant [facility] 02:19:11 neoplasm of colon Hospital (procedure) [code = 775514794] Future Scheduled 2022-10-18 SHINGLES VACCINES (1 of [facility] 02:19:11 2) [code = SHINGLES Hospital VACCINES (1 of 2)] Future Scheduled 2022-10-18 INFLUENZA VACCINE [code = [facility] 02:19:11 INFLUENZA VACCINE] Hospital Future Scheduled 2022-10-09 Screening for malignant [facility] 20:34:22 neoplasm of colon Hospital (procedure) [code = 960435645] Future Scheduled 2022-10-09 Screening for malignant [facility] 20:34:22 neoplasm of colon Hospital (procedure) [code = 471202677] Future Scheduled 2022-10-09 Screening for malignant [facility] 20:34:22 neoplasm of colon Hospital (procedure) [code = 481263367] Future Scheduled 2022-10-09 COVID-19 VACCINE (#1) [facility] 20:34:22 [code = COVID-19 VACCINE Hos pital (#1)] Future Scheduled 2022-10-09 Screening for malignant [facility] 20:34:22 neoplasm of colon Hospital (procedure) [code = 001684582] Future Scheduled 2022-10-09 Screening for malignant [facility] 20:34:22 neoplasm of colon Hospital (procedure) [code = 026156379] Future Scheduled 2022-10-09 SHINGLES VACCINES (1 of [facility] 20:34:22 2) [code = SHINGLES Hospital VACCINES (1 of 2)] Future Scheduled 2022-10-09 INFLUENZA VACCINE [code = [facility] 20:34:22 INFLUENZA VACCINE] Hospital Future Scheduled 2022-10-09 Screening for malignant [facility] 20:34:22 neoplasm of colon Hospital (procedure) [code = 071108040] Future Scheduled 2022-10-09 Screening for malignant [facility] 20:34:22 neoplasm of colon Hospital (procedure) [code = 158144602] Future Scheduled 2022-10-09 Screening for malignant [facility] 20:34:22 neoplasm of colon Hospital (procedure) [code = 829225974] Future Scheduled 2022-10-09 COVID-19 VACCINE (#1) [facility] 20:34:22 [code = COVID-19 VACCINE Hos pital (#1)] Future Scheduled 2022-10-09 Screening for malignant [facility] 20:34:22 neoplasm of colon Hospital (procedure) [code = 202209542] Future Scheduled 2022-10-09 Screening for malignant [facility] 20:34:22 neoplasm of colon Hospital (procedure) [code = 500553932] Future Scheduled 2022-10-09 SHINGLES VACCINES (1 of [facility] 20:34:22 2) [code = SHINGLES Hospital VACCINES (1 of 2)] Future Scheduled 2022-10-09 INFLUENZA VACCINE [code = [facility] 20:34:22 INFLUENZA VACCINE] Hospital Future Scheduled 2022-08-02 COVID-19 VACCINE (#1) [facility] 10[facility]59:50 [code = COVID-19 VACCINE Hos pital (#1)] Future Scheduled 2022-08-02 [facility]OSCOPY SCREENING [facility] 10:59:50 [code = COLONOSCOPY Hospital SCREENING] Future Scheduled 2022-08-02 SHINGLES VACCINES (1 of [facility] 10:59:50 2) [code = SHINGLES Hospital VACCINES (1 of 2)] Future Scheduled 2022-08-02 INFLUENZA VACCINE [code = [facility] 10:59:50 INFLUENZA VACCINE] Hospital Future Scheduled 2022-08-02 COVID-19 VACCINE (#1) [facility] 10:59:50 [code = COVID-19 VACCINE Hos pital (#1)] Future Scheduled 2022-08-02 [facility]CREENING [facility] 10:59:50 [code = COLONOSCOPY Hospital SCREENING] Future Scheduled 2022-08-02 SHINGLES VACCINES (1 of [facility] 10:59:50 2) [code = SHINGLES Hospital VACCINES (1 of 2)] Future Scheduled 2022-08-02 INFLUENZA VACCINE [code = [facility] 10:59:50 INFLUENZA VACCINE] Hospital Future Scheduled 2022-08-02 COVID-19 VACCINE (#1) [facility] 10:59:50 [code = COVID-19 VACCINE Hos pital (#1)] Future Scheduled 2022-08-02 [facility]CRE[facility]ING [facility] 10:59:50 [code = COLONOSCOPY Hospital SCREENING] Future Scheduled 2022-08-02 SHINGLES VACCINES (1 of [facility] 10:59:50 2) [code = SHINGLES Hospital VACCINES (1 of 2)] Future Scheduled 2022-08-02 INFLUENZA VACCINE [code = [facility] 10:59:50 INFLUENZA VACCINE] Hospital Future Scheduled 2022-08-02 COVID-19 VACCINE (#1) [facility] 10:59:50 [code = COVID-19 VACCINE Hos pital (#1)] Future Scheduled 2022-08-02 [facility]COPY [facility]CREENING [facility] 10:59:50 [code = COLONOSCOPY Hospital SCREENING] Future Scheduled 2022-08-02 SHINGLES VACCINES (1 of [facility] 10:59:50 2) [code = SHINGLES Hospital VACCINES (1 of 2)] Future Scheduled 2022-08-02 INFLUENZA VACCINE [code = [facility] 10:59:50 INFLUENZA VACCINE] Hospital Future Scheduled 2022-08-02 COVID-19 VACCINE (#1) [facility] 10:59:50 [code = COVID-19 VACCINE Hos pital (#1)] Future Scheduled 2022-08-02 [facility]CREENING [facility] 10:59:50 [code = COLONOSCOPY Hospital SCREENING] Future Scheduled 2022-08-02 SHINGLES VACCINES (1 of [facility] 10:59:50 2) [code = SHINGLES Hospital VACCINES (1 of 2)] Future Scheduled 2022-08-02 INFLUENZA VACCINE [code = [facility] 10:59:50 INFLUENZA VACCINE] Hospital Future Scheduled 2022-08-02 COVID-19 VACCINE (#1) [facility] 10:59:50 [code = COVID-19 VACCINE Hos pital (#1)] Future Scheduled 2022-08-02 [facility]CREENING [facility] 10:59:50 [code = COLONOSCOPY Hospital SCREENING] Future Scheduled 2022-08-02 SHINGLES VACCINES (1 of [facility] 10:59:50 2) [code = SHINGLES Hospital VACCINES (1 of 2)] Future Scheduled 2022-08-02 INFLUENZA VACCINE [code = [facility] 10:59:50 INFLUENZA VACCINE] Hospital Future Scheduled 2022-08-02 COVID-19 VACCINE [facility]1) [facility] 10:59:50 [code = COVID-19 VACCINE Hos pital (#1)] Future Scheduled 2022-08-02 [facility] 10:59:50 [code = COLONOSCOPY Hospital SCREENING] Future Scheduled 2022-08-02 SHINGLES VACCINES (1 of [facility] 10:59:50 2) [code = SHINGLES Hospital VACCINES (1 of 2)] Future Scheduled 2022-08-02 INFLUENZA VACCINE [code = [facility] 10:59:50 INFLUENZA VACCINE] Hospital Future Scheduled 2022-07-12 Lipid panel (procedure) [facility] 00:00:00 [code = 74292796] Medical Ce [facility]ter Future Scheduled 2022-07-12 Lipid panel (procedure) [facility] 00:00:00 [code = 48925572] Medical Ce [facility]ter Future Scheduled 2022-07-12 Lipid panel (procedure) [facility] 00:00:00 [code = 77412505] Medical Ce nter Future Scheduled 2022-07-12 Lipid panel (procedure) [facility] 00:00:00 [code = 01539974] Medical Ce nter Future Scheduled 2022-07-12 Lipid panel (procedure) [facility] 00:00:00 [code = 97230454] Medical Ce nter Future Scheduled 2022-07-12 Lipid panel (procedure) [facility] 00:00:00 [code = 87539576] Medical Ce nter Future Scheduled 2022-07-12 Lipid panel (procedure) [facility] 00:00:00 [code = 64869385] Medical Ce nter Future Scheduled 2022-07-12 Lipid panel (procedure) [facility] 00:00:00 [code = 88761742] Medical Ce nter Future Scheduled 2022-07-12 Lipid panel (procedure) [facility] 00:00:00 [code = 38623819] Medical Ce nter Future Scheduled 2022-07-12 Lipid panel (procedure) [facility] 00:00:00 [code = 82853537] Medical Ce nter Future Scheduled 2022-07-12 Lipid panel (procedure) [facility] 00:00:00 [code = 03141937] Medical Ce nter Future Scheduled 2022-07-12 Lipid panel (procedure) [facility] 00:00:00 [code = 78075664] Medical Ce nter Future Scheduled 2022-07-12 Lipid panel (procedure) [facility] 00:00:00 [code = 18454421] Medical Ce nter Future Scheduled 2022-07-12 Lipid panel (procedure) [facility] 00:00:00 [code = 62361819] Medical Ce nter Future Scheduled 2022-07-12 Lipid panel (procedure) [facility] 00:00:00 [code = 98318170] Medical Ce nter Future Scheduled 2022-07-12 Lipid panel (procedure) [facility] 00:00:00 [code = 80252572] Medical Ce nter Future Scheduled 2022-07-12 Lipid panel (procedure) [facility] 00:00:00 [code = 77928359] Medical Ce nter Future Scheduled 2022-07-12 Lipid panel (procedure) [facility] 00:00:00 [code = 70151852] Medical Ce nter Future Scheduled 2022-07-12 Lipid panel (procedure) [facility] 00:00:00 [code = 98189691] Medical Ce nter Future Scheduled 2022-07-12 Lipid panel (procedure) [facility] 00:00:00 [code = 73248681] Medical Ce nter Future Scheduled 2022-07-12 Lipid panel (procedure) [facility] 00:00:00 [code = 41156538] Medical Ce nter Future Scheduled 2022-07-12 Lipid panel (procedure) [facility] 00:00:00 [code = 30032028] Medical Ce nter Future Scheduled 2022-07-12 Lipid panel (procedure) [facility] 00:00:00 [code = 17327567] Medical Ce nter Future Scheduled 2022-07-12 Lipid panel (procedure) [facility] 00:00:00 [code = 71558324] Medical Ce nter Future Scheduled 2022-07-12 Lipid panel (procedure) [facility] 00:00:00 [code = 57181182] Medical Ce nter Future Scheduled 2022-07-12 Lipid panel (procedure) [facility] 00:00:00 [code = 40685135] Medical Ce nter Future Scheduled 2022-07-12 Lipid panel (procedure) [facility] 00:00:00 [code = 98504861] Medical Ce nter Future Scheduled 2022-07-12 Lipid panel (procedure) [facility] 00:00:00 [code = 52501206] Medical Ce nter Future Scheduled 2022-07-12 Lipid panel (procedure) [facility] 00:00:00 [code = 52222204] Medical Ce nter Future Scheduled 2022-07-12 Lipid panel (procedure) [facility] 00:00:00 [code = 10964098] Medical Ce nter Future Scheduled 2022-07-12 Lipid panel (procedure) [facility] 00:00:00 [code = 82301491] Medical Ce nter Future Scheduled 2022-06-15 COVID-19 [facility]ACCINE [facility] 10:12:43 [code = COVID-19 VACCINE [facility]ital (#1)] Future Scheduled 2022-06-15 [facility]CREENING [facility] 10:12:43 [code = COLONOSCOPY Hospital SCREENING] Future Scheduled 2022-06-15 SHINGLES VACCINES (1 of [facility] 10:12:43 2) [code = SHINGLES Hospital VACCINES (1 of 2)] Future Scheduled 2022-06-15 INFLUENZA VACCINE [code = [facility] 10:12:43 INFLUENZA VACCINE] Hospital Future Scheduled 2022-06-15 COVID-19 VACCINE [facility]1) [facility] 10:12:43 [code = COVID-19 VACCINE [facility]ital (#1)] Future Scheduled 2022-06-15 [facility] 10:12:43 [code = COLONOSCOPY Hospital SCREENING] Future Scheduled 2022-06-15 SHINGLES VACCINES (1 of [facility] 10:12:43 2) [code = SHINGLES Hospital VACCINES (1 of 2)] Future Scheduled 2022-06-15 INFLUENZA VACCINE [code = [facility] 10:12:43 INFLUENZA VACCINE] Hospital Future Scheduled 2022-06-15 COVID-19 VACCINE (#1) [facility] 10:12:43 [code = COVID-19 VACCINE [facility] pital (#1)] Future Scheduled 2022-06-15 [facility] 10:12:43 [code = COLONOSCOPY Hospital SCREENING] Future Scheduled 2022-06-15 SHINGLES VACCINES (1 of [facility] 10:12:43 2) [code = SHINGLES Hospital VACCINES (1 of 2)] Future Scheduled 2022-06-15 INFLUENZA VACCINE [code = [facility] 10:12:43 INFLUENZA VACCINE] Hospital Future Scheduled 2022-05-28 COVID-19 [facility]ACCINE [facility] 09:36:27 [code = COVID-19 VACCINE [facility]ital (#1)] Future Scheduled 2022-05-28 [facility] 09:36:27 [code = COLONOSCOPY Hospital SCREENING] Future Scheduled 2022-05-28 SHINGLES VACCINES (1 of [facility] 09:36:27 2) [code = SHINGLES Hospital VACCINES (1 of 2)] Future Scheduled 2022-05-28 INFLUENZA VACCINE [code = [facility] 09:36:27 INFLUENZA VACCINE] Hospital Future Scheduled 2022-05-28 COVID-19 [facility]ACCINE [facility] 09:36:27 [code = COVID-19 VACCINE [facility]ital (#1)] Future Scheduled 2022-05-28 [facility] 09:36:27 [code = COLONOSCOPY Hospital SCREENING] Future Scheduled 2022-05-28 SHINGLES VACCINES (1 of [facility] 09:36:27 2) [code = SHINGLES Hospital VACCINES (1 of 2)] Future Scheduled 2022-05-28 INFLUENZA VACCINE [code = [facility] 09:36:27 INFLUENZA VACCINE] Hospital Future Scheduled 2022-05-11 COVID-19 [facility]ACCINE [facility] 00[facility]:04 [code = COVID-19 VACCINE [facility]ital (#1)] Future Scheduled 2022-05-11 [facility] 00:38:04 [code = COLONOSCOPY Hospital SCREENING] Future Scheduled 2022-05-11 SHINGLES VACCINES (1 of [facility] 00:38:04 2) [code = SHINGLES Hospital VACCINES (1 of 2)] Future Scheduled 2022-05-11 INFLUENZA VACCINE [code = [facility] 00:38:04 INFLUENZA VACCINE] Hospital Future Scheduled 2022-05-11 COVID-19 [facility]ACCINE [facility] 00:38:04 [code = COVID-[facility] VACCINE [facility]ital (#1)] Future Scheduled 2022-05-11 [facility] 00:38:04 [code = COLONOSCOPY Hospital SCREENING] Future Scheduled 2022-05-11 SHINGLES VACCINES (1 of [facility] 00:38:04 2) [code = SHINGLES Hospital VACCINES (1 of 2)] Future Scheduled 2022-05-11 INFLUENZA VACCINE [code = [facility] 00:38:04 INFLUENZA VACCINE] Hospital Future Scheduled 2022-05-[address] [facility] 00:00:00 (12+) [code = DEPRESSION Med ical Center SCREENING (12+)] Future Scheduled 2022-05-[address] [facility] 00:00:00 (12+) [code = DEPRESSION Med ical Center SCREENING (12+)] Future Scheduled 2022-05-[address] [facility] 00:00:00 (12+) [code = DEPRESSION Med ical Center SCREENING (12+)] Future Scheduled 2022-05-[address] [facility] 00:00:00 (12+) [code = DEPRESSION Med ical Center SCREENING (12+)] Future Scheduled 2022-05-[address] [facility] 00:00:00 (12+) [code = DEPRESSION Med ical Center SCREENING (12+)] Future Scheduled 2022-05-[address] [facility] 00:00:00 (12+) [code = DEPRESSION Med ical Center SCREENING (12+)] Future Scheduled 2022-05-[address] [facility] 00:00:00 (12+) [code = DEPRESSION Med ical Center SCREENING (12+)] Future Scheduled 2022-05-[address] [facility] 00:00:00 (12+) [code = DEPRESSION Med ical Center SCREENING (12+)] Future Scheduled 2022-05-[address] [facility] 00:00:00 (12+) [code = DEPRESSION Med ical Center SCREENING (12+)] Future Scheduled 2022-05-[address] [facility] 00:00:00 (12+) [code = DEPRESSION Med ical Center SCREENING (12+)] Future Scheduled 2022-05-[address] [facility] 00:00:00 (12+) [code = DEPRESSION Med ical Center SCREENING (12+)] Future Scheduled 2022-05-[address] [facility] 00:00:00 (12+) [code = DEPRESSION Med ical Center SCREENING (12+)] Future Scheduled 2022-05-[address] [facility] 00:00:00 (12+) [code = DEPRESSION Med ical Center SCREENING (12+)] Future Scheduled 2022-05-[address] [facility] 00:00:00 (12+) [code = DEPRESSION Med ical Center SCREENING (12+)] Future Scheduled 2022-05-[address] [facility] 00:00:00 (12+) [code = DEPRESSION Med ical Center SCREENING (12+)] Future Scheduled 2022-05-[address] [facility] 00:00:00 (12+) [code = DEPRESSION Med ical Center SCREENING (12+)] Future Scheduled 2022-05-[address] [facility] [facility] (12[facility] [code = DEPRESSION [facility] SCREENING (12+)] Future Scheduled 2022-05-[address] [facility] 00:00:00 (12+) [code = DEPRESSION [facility] Center SCREENING (12+)] Future Scheduled 2022-05-[address] [facility] 00:00:00 (12+) [code = DEPRESSION [facility] ical Center SCREENING (12+)] Future Scheduled 2022-05-[address] [facility] 00:00:00 (12+) [code = DEPRESSION [facility] Center SCREENING (12+)] Future Scheduled 2022-05-[address] [facility] 00:00:00 (12+) [code = DEPRESSION [facility] ical Center SCREENING (12+)] Future Scheduled 2022-04-23 COVID-19 [facility]ACCINE [facility]:12[facility] [code = COVID-19 VACCINE [facility] (#1)] Future Scheduled 2022-04-23 [facility]CRE[facility]ING [facility]:12[facility] [code = COLONOSCOPY Hospital SCREENING] Future Scheduled 2022-04-23 SHINGLES VACCINES ([facility] 11:12:56 2) [code = SHINGLES Hospital VACCINES (1 of 2)] Future Scheduled 2022-04-23 INFLUENZA VACCINE [code = [facility] 11:12:56 INFLUENZA VACCINE] Hospital Future Scheduled 2022-04-20 COVID-19 VACCINE [facility] 13[facility]44:[facility] [code = COVID-19 VACCINE [facility] (#1)] Future Scheduled 2022-04-20 [facility] 13:44:31 [code = COLONOSCOPY Hospital SCREENING] Future Scheduled 2022-04-20 SHINGLES VACCINES ([facility] 13:44:31 2) [code = SHINGLES Hospital VACCINES (1 of 2)] Future Scheduled 2022-04-20 INFLUENZA VACCINE [code = [facility] 13:44:31 INFLUENZA VACCINE] Hospital Future Scheduled 2022-04-20 COVID-19 VACCINE (#[facility] 13:44:31 [code = COVID-19 [facility]ACCINE [facility] (#1)] Future Scheduled 2022-04-20 [facility]CRE[facility] 13:44:31 [code = COLONOSCOPY Hospital SCREENING] Future Scheduled 2022-04-20 SHINGLES VACCINES ([facility] 13:44:31 2) [code = SHINGLES Hospital VACCINES (1 of 2)] Future Scheduled 2022-04-20 INFLUENZA VACCINE [code = [facility] 13:44:31 INFLUENZA VACCINE] Hospital Future Scheduled 2022-04-20 COVID-19 VACCINE (#[facility] 13:44:31 [code = COVID-19 VACCINE [facility] (#1)] Future Scheduled 2022-04-20 [facility]CRE[facility] 13:44:31 [code = COLONOSCOPY Hospital SCREENING] Future Scheduled 2022-04-20 SHINGLES VACCINES (1 [facility] 13:44:31 2) [code = SHINGLES Hospital VACCINES (1 of 2)] Future Scheduled 2022-04-20 INFLUENZA VACCINE [code = [facility] 13:44:31 INFLUENZA VACCINE] Hospital Future Scheduled 2022-04-20 COVID-19 VACCINE (#1) [facility] 13:44:31 [code = COVID-19 [facility]ACCINE [facility] (#1)] Future Scheduled 2022-04-20 [facility]CRE[facility]ING [facility] 13:44:31 [code = COLONOSCOPY Hospital SCREENING] Future Scheduled 2022-04-20 SHINGLES VACCINES (1 [facility] 13:44:31 2) [code = SHINGLES Hospital VACCINES (1 of 2)] Future Scheduled 2022-04-20 INFLUENZA VACCINE [code = [facility] 13:44:31 INFLUENZA VACCINE] Hospital Future Scheduled 2022-03-04 HEPATITIS B VACCINES (1 [facility] 13:56:11 of 3 - 3-dose series) Hospit al [code = HEPATITIS B VACCINES (1 of 3 - 3-dose series)] Future Scheduled 2022-03-04 COVID-19 VACCINE (#1) [facility] 13:56:11 [code = COVID-[facility]ACCINE [facility] (#1)] Future Scheduled 2022-03-04 [facility]CRE[facility]ING [facility] 13:56:11 [code = COLONOSCOPY Hospital SCREENING] Future Scheduled 2022-03-04 SHINGLES VACCINES (1 of [facility] 13:56:11 2) [code = SHINGLES Hospital VACCINES (1 of 2)] Future Scheduled 2022-03-04 INFLUENZA VACCINE [code = [facility] 13:56:11 INFLUENZA VACCINE] Hospital Future Scheduled 2022-03-04 HEPATITIS B VACCINES (1 [facility] 13:56:11 of 3 - 3-dose series) Hospit al [code = HEPATITIS B VACCINES (1 of 3 - 3-dose series)] Future Scheduled 2022-03-04 COVID-19 VACCINE (#1[facility] 13:56:11 [code = COVID-[facility] VACCINE [facility] (#1)] Future Scheduled 2022-03-04 [facility]CRE[facility]ING [facility] 13:56:11 [code = COLONOSCOPY Hospital SCREENING] Future Scheduled 2022-03-04 SHINGLES VACCINES (1 of [facility] 13:56:11 2) [code = SHINGLES Hospital VACCINES (1 of 2)] Future Scheduled 2022-03-04 INFLUENZA VACCINE [code = [facility] 13:56:11 INFLUENZA VACCINE] Hospital Future Scheduled 2022-03-04 HEPATITIS B VACCINES (1 [facility] 13:56:11 of 3 - 3-dose series) Hospit al [code = HEPATITIS B VACCINES (1 of 3 - 3-dose series)] Future Scheduled 2022-03-04 COVID-19 VACCINE (#1) [facility] 13:56:11 [code = COVID-[facility] VACCINE [facility] (#1)] Future Scheduled 2022-03-04 [facility]CREENING [facility] 13:56:11 [code = COLONOSCOPY Hospital SCREENING] Future Scheduled 2022-03-04 SHINGLES VACCINES (1 of [facility] 13:56:11 2) [code = SHINGLES Hospital VACCINES (1 of 2)] Future Scheduled 2022-03-04 INFLUENZA VACCINE [code = [facility] 13:56:11 INFLUENZA VACCINE] Hospital Future Scheduled 2022-02-08 HEPATITIS B VACCINES (1 [facility] 14:31:50 of 3 - 3-dose series) Hospit al [code = HEPATITIS B VACCINES (1 of 3 - 3-dose series)] Future Scheduled 2022-02-08 COVID-19 VACCINE (#1) [facility] 14:31:50 [code = COVID-19 VACCINE [facility] (#1)] Future Scheduled 2022-02-08 [facility]CREENING [facility] 14:31:50 [code = COLONOSCOPY Hospital SCREENING] Future Scheduled 2022-02-08 SHINGLES VACCINES (1 of [facility] 14:31:50 2) [code = SHINGLES Hospital VACCINES (1 of 2)] Future Scheduled 2022-02-08 INFLUENZA VACCINE [code = [facility] 14:31:50 INFLUENZA VACCINE] Hospital Future Scheduled 2022-01-03 HEPATITIS B VACCINES (1 [facility] 04:21:26 of 3 - 3-dose series) Hospit al [code = HEPATITIS B VACCINES (1 of 3 - 3-dose series)] Future Scheduled 2022-01-03 COVID-19 VACCINE (#1[facility] 04:21:26 [code = COVID-19 VACCINE [facility] (#1)] Future Scheduled 2022-01-03 Pneumococcal Vaccine: [facility] 04:21:26 Pediatrics (0 to 5 Years) Ho spital and At-Risk Patients (6 to 64 Years) (1 - PCV) [code = Pneumococcal Vaccine: Pediatrics (0 to 5 Years) and At-Risk Patients (6 to 64 Years) (1 - PCV)] Future Scheduled 2022-01-03 Hepatitis C screening [facility] 04:21:26 (procedure) [code = Hospital [id number]] Future Scheduled 2022-01-03 SHINGLES VACCINES (1 of [facility] 04:21:26 2) [code = SHINGLES Hospital VACCINES (1 of 2)] Future Scheduled 2022-01-03 [facility]CREENING [facility] 04:21:26 [code = COLONOSCOPY Hospital SCREENING] Future Scheduled 2022-01-03 INFLUENZA VACCINE [code = [facility] 04:21:26 INFLUENZA VACCINE] Hospital Future Scheduled 2022-01-01 INFLUENZA VACCINE (#1[facility] [code = INFLUENZA VACCINE [facility] (#[facility])] Future Scheduled 2022-01-01 INFLUENZA VACCINE (#1[facility] [code = INFLUENZA VACCINE [facility] (#1)] Future Scheduled 2022-01-01 INFLUENZA VACCINE (#1) [facility]:00[facility]00 [code = INFLUENZA VACCINE [facility] (#1)] Future Scheduled 2022-01-01 INFLUENZA VACCINE (#1[facility]:00[facility]00 [code = INFLUENZA VACCINE [facility] (#1)] Future Scheduled 2022-01-01 INFLUENZA VACCINE (#1) [facility]00 [code = INFLUENZA VACCINE [facility] (#1)] Future Scheduled 2022-01-01 INFLUENZA VACCINE (#1) [facility]:00[facility]00 [code = INFLUENZA VACCINE [facility] (#1)] Future Scheduled 2022-01-01 INFLUENZA VACCINE (#1[facility]:00[facility]00 [code = INFLUENZA VACCINE [facility] (#1)] Future Scheduled 2022-01-01 INFLUENZA VACCINE (#1[facility]:00[facility]00 [code = INFLUENZA VACCINE [facility] (#1)] Future Scheduled 2022-01-01 INFLUENZA VACCINE (#1[facility]00 [code = INFLUENZA VACCINE [facility] (#1)] Future Scheduled 2022-01-01 INFLUENZA VACCINE (#1) [facility]:00[facility]00 [code = INFLUENZA VACCINE [facility] (#1)] Future Scheduled 2022-01-01 INFLUENZA VACCINE (#1[facility]:00:00 [code = INFLUENZA VACCINE [facility] (#1)] Future Scheduled 2022-01-01 INFLUENZA VACCINE (#1[facility]:00:00 [code = INFLUENZA VACCINE [facility] (#1)] Future Scheduled 2022-01-01 INFLUENZA VACCINE (#1[facility]:00[facility]00 [code = INFLUENZA VACCINE [facility] (#1)] Future Scheduled 2022-01-01 INFLUENZA VACCINE (#1[facility]:00[facility]00 [code = INFLUENZA VACCINE [facility] (#1)] Future Scheduled 2022-01-01 INFLUENZA VACCINE (#1[facility] [code = INFLUENZA VACCINE [facility] (#1)] Future Scheduled 2022-01-01 INFLUENZA VACCINE (#1[facility]:00[facility]00 [code = INFLUENZA VACCINE [facility] (#1)] Future Scheduled 2022-01-01 INFLUENZA VACCINE (#1[facility]:00[facility] [code = INFLUENZA VACCINE [facility] (#1)] Future Scheduled 2021-12-27 HEPATITIS B VACCINES (1 [facility] 10:00:17 of 3 - 3-dose series) Hospit al [code = HEPATITIS B VACCINES (1 of 3 - 3-dose series)] Future Scheduled 2021-12-27 COVID-19 VACCINE [facility] 10:00:17 [code = COVID-19 VACCINE [facility] (#1)] Future Scheduled 2021-12-27 Pneumococcal Vaccine: [facility] 10:00:17 Pediatrics (0 to 5 Years) Ho spital and At-Risk Patients (6 to 64 Years) (1 - PCV) [code = Pneumococcal Vaccine: Pediatrics (0 to 5 Years) and At-Risk Patients (6 to 64 Years) (1 - PCV)] Future Scheduled 2021-12-27 [facility] C screening [facility] 10:00:17 (procedure) [code = Hospital [id number]] Future Scheduled 2021-12-27 SHINGLES VACCINES ([facility] of [facility] 10:00:17 2) [code = SHINGLES Hospital VACCINES (1 of 2)] Future Scheduled 2021-12-27 [facility]CREENING [facility]:00:17 [code = COLONOSCOPY Hospital SCREENING] Future Scheduled 2021-12-27 INFLUENZA VACCINE [code = [facility] 10:00:17 INFLUENZA VACCINE] Hospital Future Scheduled 2021-05-[address] [facility] 00:00:00 (12+) [code = DEPRESSION Med ical Center SCREENING (12+)] Future Scheduled 2021-05-[address] [facility] 00:00:00 (12+) [code = DEPRESSION [facility] Center SCREENING (12+)] Future Scheduled 2021-05-[address] [facility] 00:00:00 (12+) [code = DEPRESSION [facility] Center SCREENING (12+)] Future Scheduled 2021-05-[address] [facility] 00:00:00 (12+) [code = DEPRESSION [facility] Center SCREENING (12+)] Future Scheduled 2021-05-[address] [facility] 00:00:00 (12+) [code = DEPRESSION [facility] Center SCREENING (12+)] Future Scheduled 2021-05-[address] [facility] 00:00:00 (12+) [code = DEPRESSION [facility] Center SCREENING (12+)] Future Scheduled 2021-05-[address] [facility] 00:00:00 (12+) [code = DEPRESSION [facility] Center SCREENING (12+)] Future Scheduled 2021-05-[address] [facility] 00:00:00 (12+) [code = DEPRESSION [facility] Center SCREENING (12+)] Future Scheduled 2021-05-[address] [facility] 00:00:00 (12+) [code = DEPRESSION [facility] Center SCREENING (12+)] Future Scheduled 2021-05-[address] [facility] 00:00:00 (12+) [code = DEPRESSION [facility] Center SCREENING (12+)] Future Scheduled 2020-12-[address] [facility] 00:00:00 Counseling and Screening [facility] Center (12+) [code = Tobacco Cessation Counseling and Screening (12+)] Future Scheduled 2020-12-[address] [facility] 00:00:00 [facility]ing [facility] Screening [facility] (12+) [code = Tobacco Cessation Counseling and Screening (12+)] Future Scheduled 2020-12-[address] [facility] 00:00:00 [facility]ing [facility] Screening [facility] (12+) [code = Tobacco Cessation Counseling and Screening (12+)] Future Scheduled 2020-12-[address] [facility] 00:00:00 [facility]ing [facility] Screening [facility] (12+) [code = Tobacco Cessation Counseling and Screening (12+)] Future Scheduled 2020-12-[address] [facility] 00:00:00 [facility]ing [facility] Screening [facility] (12+) [code = Tobacco Cessation Counseling and Screening (12+)] Future Scheduled 2020-12-[address] [facility] 00:00:00 [facility]ing [facility] Screening [facility] (12+) [code = Tobacco Cessation Counseling and Screening (12+)] Future Scheduled 2020-12-[address] [facility] 00:00:00 [facility]ing [facility] Screening [facility] (12+) [code = Tobacco Cessation Counseling and Screening (12+)] Future Scheduled 2020-12-[address] [facility] 00:00:00 Counseling [facility] Screening [facility] (12+) [code = Tobacco Cessation Counseling and Screening (12+)] Future Scheduled 2020-12-[address] [facility] 00:00:00 [facility]ing [facility] Screening [facility] (12+) [code = Tobacco Cessation Counseling and Screening (12+)] Future Scheduled 2020-12-[address] [facility] 00:00:00 [facility]ing [facility] Screening [facility] (12+) [code = Tobacco Cessation Counseling and Screening (12+)] Future Scheduled 2020-12-[address] [facility] 00:00:00 [facility]ing [facility] Screening [facility] (12+) [code = Tobacco Cessation Counseling and Screening (12+)] Future Scheduled 2020-12-[address] [facility] 00:00:00 [facility]ing [facility] Screening [facility] (12+) [code = Tobacco Cessation Counseling and Screening (12+)] Future Scheduled 2020-12-[address] [facility] 00:00:00 [facility]ing [facility] Screening [facility] (12+) [code = Tobacco Cessation Counseling and Screening (12+)] Future Scheduled 2020-12-[address] [facility] 00:00:00 [facility]ing [facility] Screening [facility] (12+) [code = Tobacco Cessation Counseling and Screening (12+)] Future Scheduled 2020-12-[address] [facility] 00:00:00 Counseling [facility] Screening [facility] (12+) [code = Tobacco Cessation Counseling and Screening (12+)] Future Scheduled 2020-12-[address] [facility] 00:00:00 Counseling and Screening [facility] (12+) [code = Tobacco Cessation Counseling and Screening (12+)] Future Scheduled 2020-12-[address] [facility] 00:00:00 Counseling and Screening [facility] (12+) [code = Tobacco Cessation Counseling and Screening (12+)] Future Scheduled 2020-12-[address] [facility] 00:00:00 Counseling and Screening [facility] (12+) [code = Tobacco Cessation Counseling and Screening (12+)] Future Scheduled 2020-12-[address] [facility] 00:00:00 Counseling and Screening [facility] (12+) [code = Tobacco Cessation Counseling and Screening (12+)] Future Scheduled 2020-12-[address] [facility] 00:00:00 Counseling [facility] Screening [facility] (12+) [code = Tobacco Cessation Counseling and Screening (12+)] Future Scheduled 2020-12-[address] [facility] 00:00:00 Counseling [facility] Screening [facility] (12+) [code = Tobacco Cessation Counseling and Screening (12+)] Future Scheduled 2020-12-[address] [facility] 00:00:00 [facility]ing [facility] Screening [facility] (12+) [code = Tobacco Cessation Counseling and Screening (12+)] Future Scheduled 2020-12-[address] [facility] 00:00:00 Counseling [facility] Screening [facility] (12+) [code = Tobacco Cessation Counseling and Screening (12+)] Future Scheduled 2020-12-[address] [facility] 00:00:00 [facility]ing [facility] Screening [facility] (12+) [code = Tobacco Cessation Counseling and Screening (12+)] Future Scheduled 2020-12-[address] [facility] 00:00:00 [facility]ing [facility] Screening [facility] (12+) [code = Tobacco Cessation Counseling and Screening (12+)] Future Scheduled 2020-12-[address] [facility] 00:00:00 [facility]ing [facility] Screening [facility] (12+) [code = Tobacco Cessation Counseling and Screening (12+)] Future Scheduled 2020-12-[address] [facility] 00:00:00 [facility]ing [facility] Screening [facility] (12+) [code = Tobacco Cessation Counseling and Screening (12+)] Future Scheduled 2020-01-[address] [facility]procedure[facility] [code = [id number]] Future Scheduled 2020-01-[address] [facility] 00[facility]:00 measurement (procedure) [facility] [code = [id number]] Future Scheduled 2020-01-[address] [facility] 00:00:00 measurement (procedure) [facility] [code = [id number]] Future Scheduled 2020-01-[address] [facility] 00:00:00 measurement (procedure) [facility] [code = [id number]] Future Scheduled 2020-01-[address] [facility] 00:00:00 measurement (procedure) [facility] [code = [id number]] Future Scheduled 2020-01-[address] [facility] 00:00:00 measurement (procedure) [facility] [code = [id number]] Future Scheduled 2020-01-[address] [facility] 00:00:00 measurement (procedure) [facility] [code = [id number]] Future Scheduled 2020-01-[address] [facility] 00:00:00 measurement (procedure) [facility] [code = [id number]] Future Scheduled 2020-01-[address] [facility] 00:00:00 measurement (procedure) [facility] [code = [id number]] Future Scheduled 2020-01-[address] [facility] 00:00:00 measurement (procedure) [facility] [code = [id number]] Future Scheduled 2020-01-[address] [facility] 00:00:00 measurement (procedure) [facility] [code = [id number]] Future Scheduled 2020-01-[address] [facility] 00:00:00 measurement (procedure) [facility] [code = [id number]] Future Scheduled 2020-01-[address] [facility] 00:00:00 measurement (procedure) [facility] [code = [id number]] Future Scheduled 2020-01-[address] [facility] 00:00:00 measurement (procedure) [facility] [code = [id number]] Future Scheduled 2020-01-[address] [facility] 00:00:00 measurement (procedure) [facility] [code = [id number]] Future Scheduled 2020-01-[address] [facility] 00:00:00 measurement (procedure) [facility] [code = [id number]] Future Scheduled 2020-01-[address] [facility] 00:00:00 measurement (procedure) [facility] [code = [id number]] Future Scheduled 2020-01-[address] [facility] 00:00:00 measurement (procedure) [facility] [code = [id number]] Future Scheduled 2020-01-[address] [facility] 00:00:00 measurement (procedure) [facility] [code = [id number]] Future Scheduled 2020-01-[address] [facility] 00:00:00 measurement (procedure) [facility] [code = [id number]] Future Scheduled 2020-01-[address] [facility] 00:00:00 measurement (procedure) [facility] [code = [id number]] Future Scheduled 2020-01-[address] [facility] 00:00:00 measurement (procedure) [facility] [code = [id number]] Future Scheduled 2020-01-[address] [facility] 00:00:00 measurement (procedure) [facility] [code = [id number]] Future Scheduled 2020-01-[address] [facility] 00:00:00 measurement (procedure) [facility] [code = [id number]] Future Scheduled 2020-01-[address] [facility] 00:00:00 measurement (procedure) [facility] [code = [id number]] Future Scheduled 2020-01-[address] [facility] 00:00:00 measurement (procedure) [facility] [code = [id number]] Future Scheduled 2020-01-[address] [facility] 00:00:00 measurement (procedure) [facility] [code = [id number]] Future Scheduled 2020-01-[address] [facility] 00:00:00 measurement (procedure) [facility] [code = [id number]] Future Scheduled 2020-01-[address] [facility] 00:00:00 measurement (procedure) [facility] [code = [id number]] Future Scheduled 2020-01-[address] [facility] 00:00:00 measurement (procedure) [facility] [code = [id number]] Future Scheduled 2020-01-[address] [facility] 00:00:00 measurement (procedure) [facility] [code = [id number]] Future Scheduled 2019-11-[address] [facility] 00:00:00 (YEAR 2 or FIRST YEAR if Med ical Center no IPPE) [code = MEDICARE ANNUAL WELLNESS (YEAR 2 or FIRST YEAR if no IPPE)] Future Scheduled 2019-11-[address] [facility] 00:00:00 (YEAR 2 or FIRST YEAR if Med ical Center no IPPE) [code = MEDICARE ANNUAL WELLNESS (YEAR 2 or FIRST YEAR if no IPPE)] Future Scheduled 2019-11-[address] [facility] 00:00:00 (YEAR 2 or FIRST YEAR if Med ical Center no IPPE) [code = MEDICARE ANNUAL WELLNESS (YEAR 2 or FIRST YEAR if no IPPE)] Future Scheduled 2019-11-[address] [facility] 00:00:00 (YEAR 2 or FIRST YEAR if Med ical Center no IPPE) [code = MEDICARE ANNUAL WELLNESS (YEAR 2 or FIRST YEAR if no IPPE)] Future Scheduled 2019-11-[address] [facility] 00:00:00 (YEAR 2 or FIRST YEAR if Med ical Center no IPPE) [code = MEDICARE ANNUAL WELLNESS (YEAR 2 or FIRST YEAR if no IPPE)] Future Scheduled 2019-11-[address] [facility] 00:00:00 (YEAR 2 or FIRST YEAR if Med ical Center no IPPE) [code = MEDICARE ANNUAL WELLNESS (YEAR 2 or FIRST YEAR if no IPPE)] Future Scheduled 2019-11-[address] [facility] 00:00:00 (YEAR 2 or FIRST YEAR if Med ical Center no IPPE) [code = MEDICARE ANNUAL WELLNESS (YEAR 2 or FIRST YEAR if no IPPE)] Future Scheduled 2019-11-[address] [facility] 00:00:00 (YEAR 2 or FIRST YEAR if Med ical Center no IPPE) [code = MEDICARE ANNUAL WELLNESS (YEAR 2 or FIRST YEAR if no IPPE)] Future Scheduled 2019-11-[address] [facility] 00:00:00 (YEAR 2 or FIRST YEAR if Med ical Center no IPPE) [code = MEDICARE ANNUAL WELLNESS (YEAR 2 or FIRST YEAR if no IPPE)] Future Scheduled 2019-11-[address] 00:00:00 (YEAR 2 or FIRST YEAR if Med ical Center no IPPE) [code = MEDICARE ANNUAL WELLNESS (YEAR 2 or FIRST YEAR if no IPPE)] Future Scheduled 2019-11-[address] [facility] 00:00:00 (YEAR 2 or FIRST YEAR if Med ical Center no IPPE) [code = MEDICARE ANNUAL WELLNESS (YEAR 2 or FIRST YEAR if no IPPE)] Future Scheduled 2019-11-[address] [facility] 00:00:00 (YEAR 2 or FIRST YEAR if Med ical Center no IPPE) [code = MEDICARE ANNUAL WELLNESS (YEAR 2 or FIRST YEAR if no IPPE)] Future Scheduled 2019-11-[address] [facility] 00:00:00 (YEAR 2 or FIRST YEAR if Med ical Center no IPPE) [code = MEDICARE ANNUAL WELLNESS (YEAR 2 or FIRST YEAR if no IPPE)] Future Scheduled 2019-11-[address] [facility] 00:00:00 (YEAR 2 or FIRST YEAR if Med ical Center no IPPE) [code = MEDICARE ANNUAL WELLNESS (YEAR 2 or FIRST YEAR if no IPPE)] Future Scheduled 2019-11-[address] [facility] 00:00:00 (YEAR 2 or FIRST YEAR if Med ical Center no IPPE) [code = MEDICARE ANNUAL WELLNESS (YEAR 2 or FIRST YEAR if no IPPE)] Future Scheduled 2019-11-[address] [facility] 00:00:00 (YEAR 2 or FIRST YEAR if Med ical Center no IPPE) [code = MEDICARE ANNUAL WELLNESS (YEAR 2 or FIRST YEAR if no IPPE)] Future Scheduled 2019-11-[address] [facility] 00:00:00 (YEAR 2 or FIRST YEAR if Med ical Center no IPPE) [code = MEDICARE ANNUAL WELLNESS (YEAR 2 or FIRST YEAR if no IPPE)] Future Scheduled 2019-11-[address] [facility] 00:00:00 (YEAR 2 or FIRST YEAR if Med ical Center no IPPE) [code = MEDICARE ANNUAL WELLNESS (YEAR 2 or FIRST YEAR if no IPPE)] Future Scheduled 2019-11-[address] [facility] 00:00:00 (YEAR 2 or FIRST YEAR if Med ical Center no IPPE) [code = MEDICARE ANNUAL WELLNESS (YEAR 2 or FIRST YEAR if no IPPE)] Future Scheduled 2019-11-[address] [facility] 00:00:00 (YEAR 2 or FIRST YEAR if Med ical Center no IPPE) [code = MEDICARE ANNUAL WELLNESS (YEAR 2 or FIRST YEAR if no IPPE)] Future Scheduled 2019-11-[address] [facility] 00:00:00 (YEAR 2 or [facility] if [facility] no IPPE) [code = MEDICARE ANNUAL WELLNESS (YEAR 2 or FIRST YEAR if no IPPE)] Future Scheduled 2019-11-[address] [facility] 00:00:00 (YEAR 2 or FIRST YEAR if [facility] no IPPE) [code = MEDICARE ANNUAL WELLNESS (YEAR 2 or FIRST YEAR if no IPPE)] Future Scheduled 2019-11-02 MEDICARE ANNUAL WELLNESS [facility] 00:00:00 (YEAR 2 or FIRST YEAR if [facility] no IPPE) [code = MEDICARE ANNUAL WELLNESS (YEAR 2 or FIRST YEAR if no IPPE)] Future Scheduled 2019-11-02 MEDICARE ANNUAL WELLNESS [facility] 00:00:00 (YEAR 2 or FIRST YEAR if [facility] no IPPE) [code = MEDICARE ANNUAL WELLNESS (YEAR 2 or FIRST YEAR if no IPPE)] Future Scheduled 2019-11-02 MEDICARE ANNUAL WELLNESS [facility] 00:00:00 (YEAR 2 or FIRST YEAR if [facility] no IPPE) [code = MEDICARE ANNUAL WELLNESS (YEAR 2 or FIRST YEAR if no IPPE)] Future Scheduled 2019-11-02 MEDICARE ANNUAL WELLNESS [facility] 00:00:00 (YEAR 2 or FIRST YEAR if [facility] no IPPE) [code = MEDICARE ANNUAL WELLNESS (YEAR 2 or FIRST YEAR if no IPPE)] Future Scheduled 2019-11-02 MEDICARE ANNUAL WELLNESS [facility] 00:00:00 (YEAR 2 or FIRST YEAR if [facility] no IPPE) [code = MEDICARE ANNUAL WELLNESS (YEAR 2 or FIRST YEAR if no IPPE)] Future Scheduled 2019-11-02 MEDICARE ANNUAL WELLNESS [facility] 00:00:00 (YEAR 2 or FIRST YEAR if [facility] no IPPE) [code = MEDICARE ANNUAL WELLNESS (YEAR 2 or FIRST YEAR if no IPPE)] Future Scheduled 2019-11-02 MEDICARE ANNUAL WELLNESS [facility] 00:00:00 (YEAR 2 or FIRST YEAR if [facility] no IPPE) [code = MEDICARE ANNUAL WELLNESS (YEAR 2 or FIRST YEAR if no IPPE)] Future Scheduled 2019-11-02 MEDICARE ANNUAL WELLNESS [facility] 00:00:00 (YEAR 2 or FIRST YEAR if [facility] no IPPE) [code = MEDICARE ANNUAL WELLNESS (YEAR 2 or FIRST YEAR if no IPPE)] Future Scheduled 2019-11-02 MEDICARE ANNUAL WELLNESS [facility] 00:00:00 (YEAR 2 or FIRST YEAR if [facility] no IPPE) [code = MEDICARE ANNUAL WELLNESS (YEAR 2 or FIRST YEAR if no IPPE)] Future Scheduled 2019-03-07 PNEUMOCOCCAL VACCINE 0-[address] [facility] 00:00:00 YRS (2 - PCV) [code = [facility] PNEUMOCOCCAL VACCINE 0-64 YRS (2 - PCV)] Future Scheduled 2019-03-07 PNEUMOCOCCAL VACCINE 0-[address] [facility] 00:00:00 YRS (2 - PCV) [code = [facility] PNEUMOCOCCAL VACCINE 0-64 YRS (2 - PCV)] Future Scheduled 2019-03-07 PNEUMOCOCCAL VACCINE 0-[address] [facility] 00:00:00 YRS (2 - PCV) [code = [facility] PNEUMOCOCCAL VACCINE 0-64 YRS (2 - PCV)] Future Scheduled 2019-03-07 PNEUMOCOCCAL VACCINE 0-[address] [facility] 00:00:00 YRS (2 - PCV) [code = [facility] PNEUMOCOCCAL VACCINE 0-64 YRS (2 - PCV)] Future Scheduled 2019-03-07 PNEUMOCOCCAL VACCINE 0-[address] [facility] 00:00:00 YRS (2 - PCV) [code = [facility] PNEUMOCOCCAL VACCINE 0-64 YRS (2 - PCV)] Future Scheduled 2019-03-07 PNEUMOCOCCAL VACCINE 0-[address] [facility] 00:00:00 YRS (2 - PCV) [code = [facility] PNEUMOCOCCAL VACCINE 0-64 YRS (2 - PCV)] Future Scheduled 2019-03-07 PNEUMOCOCCAL VACCINE 0-[address] [facility] 00:00:00 YRS (2 - PCV) [code = [facility] PNEUMOCOCCAL VACCINE 0-64 YRS (2 - PCV)] Future Scheduled 2019-03-07 PNEUMOCOCCAL VACCINE 0-[address] [facility] 00:00:00 YRS (2 - PCV) [code = [facility] PNEUMOCOCCAL VACCINE 0-64 YRS (2 - PCV)] Future Scheduled 2019-03-07 PNEUMOCOCCAL VACCINE 0-[address] [facility] 00:00:00 YRS (2 - PCV) [code = [facility] PNEUMOCOCCAL VACCINE 0-64 YRS (2 - PCV)] Future Scheduled 2019-03-07 PNEUMOCOCCAL VACCINE 0-[address] [facility] 00:00:00 YRS (2 - PCV) [code = [facility] PNEUMOCOCCAL VACCINE 0-64 YRS (2 - PCV)] Future Scheduled 2019-03-07 PNEUMOCOCCAL VACCINE 0-[address] [facility] 00:00:00 YRS (2 - PCV) [code = [facility] PNEUMOCOCCAL VACCINE 0-64 YRS (2 - PCV)] Future Scheduled 2019-03-07 PNEUMOCOCCAL VACCINE 0-[address] [facility] 00:00:00 YRS (2 - PCV) [code = [facility] PNEUMOCOCCAL VACCINE 0-64 YRS (2 - PCV)] Future Scheduled 2019-03-07 PNEUMOCOCCAL VACCINE 0-[address] [facility] 00:00:00 YRS (2 - PCV) [code = [facility] PNEUMOCOCCAL VACCINE 0-64 YRS (2 - PCV)] Future Scheduled 2019-03-07 PNEUMOCOCCAL VACCINE 0-[address] [facility] 00:00:00 YRS (2 - PCV) [code = [facility] PNEUMOCOCCAL VACCINE 0-64 YRS (2 - PCV)] Future Scheduled 2019-03-07 PNEUMOCOCCAL VACCINE 0-[address] [facility] 00:00:00 YRS (2 - PCV) [code = [facility] PNEUMOCOCCAL VACCINE 0-64 YRS (2 - PCV)] Future Scheduled 2019-03-07 PNEUMOCOCCAL VACCINE 0-[address] [facility] 00:00:00 YRS (2 - PCV) [code = [facility] PNEUMOCOCCAL VACCINE 0-64 YRS (2 - PCV)] Future Scheduled 2015 SHINGLES VACCINES ([address] [facility] 00:00:00 2) [code = [facility] VACCINES (1 of 2)] Future Scheduled 2015 SHINGLES VACCINES ([address] [facility] 00:00:00 2) [code = [facility] VACCINES (1 of 2)] Future Scheduled 2015 SHINGLES VACCINES ([address] [facility] 00:00:00 2) [code = [facility] VACCINES (1 of 2)] Future Scheduled 2015 SHINGLES VACCINES ([address] [facility] 00:00:00 2) [code = [facility] VACCINES (1 of 2)] Future Scheduled 2015 SHINGLES VACCINES ([address] [facility] 00:00:00 2) [code = [facility] VACCINES (1 of 2)] Future Scheduled 2015 SHINGLES VACCINES ([address] [facility] 00:00:00 2) [code = [facility] VACCINES (1 of 2)] Future Scheduled 2015 SHINGLES VACCINES ([address] [facility] 00:00:00 2) [code = [facility] VACCINES (1 of 2)] Future Scheduled 2015 SHINGLES VACCINES ([address] [facility] 00:00:00 2) [code = [facility] VACCINES (1 of 2)] Future Scheduled 2015 SHINGLES VACCINES ([address] [facility] 00:00:00 2) [code = [facility] VACCINES (1 of 2)] Future Scheduled 2015 SHINGLES VACCINES ([address] [facility] 00:00:00 2) [code = [facility] VACCINES (1 of 2)] Future Scheduled 2015 SHINGLES VACCINES ([address] [facility] 00:00:00 2) [code = [facility] VACCINES (1 of 2)] Future Scheduled 2015 SHINGLES VACCINES ([address] [facility] 00:00:00 2) [code = [facility] VACCINES (1 of 2)] Future Scheduled 2015 SHINGLES VACCINES ([address] [facility] 00:00:00 2) [code = [facility] VACCINES (1 of 2)] Future Scheduled 2015 SHINGLES VACCINES ([address] [facility] 00:00:00 2) [code = [facility] VACCINES (1 of 2)] Future Scheduled 2015 SHINGLES VACCINES ([address] [facility] 00:00:00 2) [code = [facility] VACCINES (1 of 2)] Future Scheduled 2015 SHINGLES VACCINES ([address] [facility] 00:00:00 2) [code = [facility] VACCINES (1 of 2)] Future Scheduled 2015 SHINGLES VACCINES ([address] [facility] 00:00:00 2) [code = [facility] VACCINES (1 of 2)] Future Scheduled 2015 SHINGLES VACCINES ([address] [facility] 00:00:00 2) [code = [facility] VACCINES (1 of 2)] Future Scheduled 2015 SHINGLES VACCINES ([address] [facility] 00:00:00 2) [code = [facility] VACCINES (1 of 2)] Future Scheduled 2015 SHINGLES VACCINES ([address] [facility] 00:00:00 2) [code = [facility] VACCINES (1 of 2)] Future Scheduled 2015 SHINGLES VACCINES ([address] [facility] 00:00:00 2) [code = [facility] VACCINES (1 of 2)] Future Scheduled 2015 SHINGLES VACCINES ([address] [facility] 00:00:00 2) [code = [facility] VACCINES (1 of 2)] Future Scheduled 2015 SHINGLES VACCINES ([address] [facility] 00:00:00 2) [code = [facility] VACCINES (1 of 2)] Future Scheduled 2015 SHINGLES VACCINES ([address] [facility] 00:00:00 2) [code = [facility] VACCINES (1 of 2)] Future Scheduled 2015 SHINGLES VACCINES ([address] [facility] 00:00:00 2) [code = [facility] VACCINES (1 of 2)] Future Scheduled 2015 SHINGLES VACCINES ([address] [facility] 00:00:00 2) [code = [facility] VACCINES (1 of 2)] Future Scheduled 2015 SHINGLES VACCINES ([address] [facility] 00:00:00 2) [code = [facility] VACCINES (1 of 2)] Future Scheduled 2015 SHINGLES VACCINES ([address] [facility] 00:00:00 2) [code = [facility] VACCINES (1 of 2)] Future Scheduled 2015 SHINGLES VACCINES ([address] [facility] 00:00:00 2) [code = [facility] VACCINES (1 of 2)] Future Scheduled 2015 SHINGLES VACCINES ([address] [facility] 00:00:00 2) [code = [facility] VACCINES (1 of 2)] Future Scheduled 2015 SHINGLES VACCINES ([address] [facility] 00:00:00 2) [code = [facility] VACCINES (1 of 2)] Future Scheduled 1984 DTAP/TDAP/TD VACCINES ([address] [facility] 00:00:00 - Tdap) [code = [facility] DTAP/TDAP/TD VACCINES (1 - Tdap)] Future Scheduled 1984 DTAP/TDAP/TD VACCINES ([address] [facility] 00:00:00 - Tdap) [code = [facility] DTAP/TDAP/TD VACCINES (1 - Tdap)] Future Scheduled 1984 DTAP/TDAP/TD VACCINES ([address] [facility] 00:00:00 - Tdap) [code = [facility] DTAP/TDAP/TD VACCINES (1 - Tdap)] Future Scheduled 1984 DTAP/TDAP/TD VACCINES ([address] [facility] 00:00:00 - Tdap) [code = [facility] DTAP/TDAP/TD VACCINES (1 - Tdap)] Future Scheduled 1984 DTAP/TDAP/TD VACCINES ([address] [facility] 00:00:00 - Tdap) [code = [facility] DTAP/TDAP/TD VACCINES (1 - Tdap)] Future Scheduled 1984 DTAP/TDAP/TD VACCINES ([address] [facility] 00:00:00 - Tdap) [code = [facility] DTAP/TDAP/TD VACCINES (1 - Tdap)] Future Scheduled 1984 DTAP/TDAP/TD VACCINES ([address] [facility] 00:00:00 - Tdap) [code = [facility] DTAP/TDAP/TD VACCINES (1 - Tdap)] Future Scheduled 1984 DTAP/TDAP/TD VACCINES ([address] [facility] 00:00:00 - Tdap) [code = [facility] DTAP/TDAP/TD VACCINES (1 - Tdap)] Future Scheduled 1984 DTAP/TDAP/TD VACCINES ([address] [facility] 00:00:00 - Tdap) [code = [facility] DTAP/TDAP/TD VACCINES (1 - Tdap)] Future Scheduled 1984 DTAP/TDAP/TD VACCINES ([address] [facility] 00:00:00 - Tdap) [code = [facility] DTAP/TDAP/TD VACCINES (1 - Tdap)] Future Scheduled 1984 DTAP/TDAP/TD VACCINES ([address] [facility] 00:00:00 - Tdap) [code = [facility] DTAP/TDAP/TD VACCINES (1 - Tdap)] Future Scheduled 1984 DTAP/TDAP/TD VACCINES ([address] [facility] 00:00:00 - Tdap) [code = [facility] DTAP/TDAP/TD VACCINES (1 - Tdap)] Future Scheduled 1984 DTAP/TDAP/TD VACCINES ([address] [facility] 00:00:00 - Tdap) [code = [facility] DTAP/TDAP/TD VACCINES (1 - Tdap)] Future Scheduled 1984 DTAP/TDAP/TD VACCINES ([address] [facility] 00:00:00 - Tdap) [code = [facility] DTAP/TDAP/TD VACCINES (1 - Tdap)] Future Scheduled 1984 DTAP/TDAP/TD VACCINES ([address] [facility] 00:00:00 - Tdap) [code = [facility] DTAP/TDAP/TD VACCINES (1 - Tdap)] Future Scheduled 1984 DTAP/TDAP/TD VACCINES ([address] [facility] 00:00:00 - Tdap) [code = [facility] DTAP/TDAP/TD VACCINES (1 - Tdap)] Future Scheduled 1984 DTAP/TDAP/TD VACCINES ([address] [facility] 00:00:00 - Tdap) [code = [facility] DTAP/TDAP/TD VACCINES (1 - Tdap)] Future Scheduled 1984 DTAP/TDAP/TD VACCINES ([address] [facility] 00:00:00 - Tdap) [code = [facility] DTAP/TDAP/TD VACCINES (1 - Tdap)] Future Scheduled 1984 DTAP/TDAP/TD VACCINES ([address] [facility] 00:00:00 - Tdap) [code = [facility] DTAP/TDAP/TD VACCINES (1 - Tdap)] Future Scheduled 1984 DTAP/TDAP/TD VACCINES ([address] [facility] 00:00:00 - Tdap) [code = [facility] DTAP/TDAP/TD VACCINES (1 - Tdap)] Future Scheduled 1984 DTAP/TDAP/TD VACCINES ([address] [facility] 00:00:00 - Tdap) [code = [facility] DTAP/TDAP/TD VACCINES (1 - Tdap)] Future Scheduled 1984 DTAP/TDAP/TD VACCINES ([address] [facility] 00:00:00 - Tdap) [code = [facility] DTAP/TDAP/TD VACCINES (1 - Tdap)] Future Scheduled 1984 DTAP/TDAP/TD VACCINES ([address] [facility] 00:00:00 - Tdap) [code = [facility] DTAP/TDAP/TD VACCINES (1 - Tdap)] Future Scheduled 1984 DTAP/TDAP/TD VACCINES ([address] [facility] 00:00:00 - Tdap) [code = [facility] DTAP/TDAP/TD VACCINES (1 - Tdap)] Future Scheduled 1984 DTAP/TDAP/TD VACCINES ([address] [facility] 00:00:00 - Tdap) [code = [facility] DTAP/TDAP/TD VACCINES (1 - Tdap)] Future Scheduled 1984 DTAP/TDAP/TD VACCINES ([address] [facility] 00:00:00 - Tdap) [code = [facility] DTAP/TDAP/TD VACCINES (1 - Tdap)] Future Scheduled 1984 DTAP/TDAP/TD VACCINES ([address] [facility] 00:00:00 - Tdap) [code = [facility] DTAP/TDAP/TD VACCINES (1 - Tdap)] Future Scheduled 1984 DTAP/TDAP/TD VACCINES ([address] [facility] 00:00:00 - Tdap) [code = [facility] DTAP/TDAP/TD VACCINES (1 - Tdap)] Future Scheduled 1984 DTAP/TDAP/TD VACCINES ([address] [facility] 00:00:00 - Tdap) [code = [facility] DTAP/TDAP/TD VACCINES (1 - Tdap)] Future Scheduled 1984 DTAP/TDAP/TD VACCINES ([address] [facility] 00:00:00 - Tdap) [code = [facility] DTAP/TDAP/TD VACCINES (1 - Tdap)] Future Scheduled 1984 DTAP/TDAP/TD VACCINES ([address] [facility] 00:00:00 - Tdap) [code = [facility] DTAP/TDAP/TD VACCINES (1 - Tdap)] Future Scheduled [address] [facility] [address] [facility]00 virus screening [facility] (procedure) [code = [id number]] Future Scheduled [address] Human [address] [facility] 00:00:00 virus screening [facility] (procedure) [code = [id number]] Future Scheduled [address] Human [address] [facility] 00:00:00 virus screening [facility] (procedure) [code = [id number]] Future Scheduled 1975 DIABETIC EYE EXAM [code = [facility] 00:00:00 DIABETIC EYE EXAM] Medical C enter Future Scheduled 1975 Diabetic foot examination [facility] 00:00:00 (regime/therapy) [code = [facility] [id number]] Future Scheduled 1975 Urine screening for [facility] 00:00:00 protein (procedure) [code [facility]ical Center = [id number]] Future Scheduled 1975 DIABETIC EYE EXAM [code = [facility] 00:00:00 DIABETIC EYE EXAM] Medical C enter Future Scheduled 1975 Diabetic foot examination [facility] 00:00:00 (regime/therapy) [code = [facility] [id number]] Future Scheduled 1975 Urine screening for [facility] 00:00:00 protein (procedure) [code [facility] Center = [id number]] Future Scheduled 1975 DIABETIC EYE EXAM [code = [facility] 00:00:00 DIABETIC EYE EXAM] Medical [facility] enter Future Scheduled 1975 Diabetic foot examination [facility] 00:00:00 (regime/therapy) [code = [facility] [id number]] Future Scheduled 1975 Urine screening for [facility] 00:00:00 protein (procedure) [code Wi [facility]ical Center = [id number]] Future Scheduled 1975 DIABETIC EYE EXAM [code = [facility] 00:00:00 DIABETIC EYE EXAM] Medical [facility] enter Future Scheduled 1975 Diabetic foot examination [facility] 00:00:00 (regime/therapy) [code = [facility] [id number]] Future Scheduled 1975 Urine screening for [facility] 00:00:00 protein (procedure) [code Wi [facility] = [id number]] Future Scheduled 1975 DIABETIC EYE EXAM [code = [facility] 00:00:00 DIABETIC EYE EXAM] Medical [facility] enter Future Scheduled 1975 Diabetic foot examination [facility] 00:00:00 (regime/therapy) [code = [facility] [id number]] Future Scheduled 1975 Urine screening for [facility] 00:00:00 protein (procedure) [code Wi [facility] = [id number]] Future Scheduled 1975 DIABETIC EYE EXAM [code = [facility] 00:00:00 DIABETIC EYE EXAM] Medical [facility] enter Future Scheduled 1975 Diabetic foot examination [facility] 00:00:00 (regime/therapy) [code = [facility] [id number]] Future Scheduled 1975 Urine screening for [facility] 00:00:00 protein (procedure) [code [facility] Center = [id number]] Future Scheduled 1975 DIABETIC EYE EXAM [code = [facility] 00:00:00 DIABETIC EYE EXAM] Medical [facility] enter Future Scheduled 1975 Diabetic foot examination [facility] 00:00:00 (regime/therapy) [code = [facility] [id number]] Future Scheduled 1975 Urine screening for [facility] 00:00:00 protein (procedure) [code [facility] Center = [id number]] Future Scheduled 1975 DIABETIC EYE EXAM [code = [facility] 00:00:00 DIABETIC EYE EXAM] Medical [facility] enter Future Scheduled 1975 Diabetic foot examination [facility] 00:00:00 (regime/therapy) [code = [facility] [id number]] Future Scheduled 1975 Urine screening for [facility] 00:00:00 protein (procedure) [code Wi [facility] Center = [id number]] Future Scheduled 1975 DIABETIC EYE EXAM [code = [facility] 00:00:00 DIABETIC EYE EXAM] Medical [facility] enter Future Scheduled 1975 Diabetic foot examination [facility] 00:00:00 (regime/therapy) [code = [facility] [id number]] Future Scheduled 1975 Urine screening for [facility] 00:00:00 protein (procedure) [code Me [facility]ical Center = [id number]] Future Scheduled 1975 DIABETIC EYE EXAM [code = [facility] 00:00:00 DIABETIC EYE EXAM] Medical [facility] enter Future Scheduled 1975 DIABETIC EYE EXAM [code = [facility] 00:00:00 DIABETIC EYE EXAM] Medical [facility] enter Future Scheduled 1975 Diabetic foot examination [facility] 00:00:00 (regime/therapy) [code = [facility] [id number]] Future Scheduled 1975 Urine screening for [facility] 00:00:00 protein (procedure) [code Wi [facility] Center = [id number]] Future Scheduled 1975 Diabetic foot examination [facility] 00:00:00 (regime/therapy) [code = [facility] [id number]] Future Scheduled 1975 Urine screening for [facility] 00:00:00 protein (procedure) [code Wi [facility] Center = [id number]] Future Scheduled 1975 DIABETIC EYE EXAM [code = [facility] 00:00:00 DIABETIC EYE EXAM] Medical [facility] enter Future Scheduled 1975 Diabetic foot examination [facility] 00:00:00 (regime/therapy) [code = [facility] [id number]] Future Scheduled 1975 Urine screening for [facility] 00:00:00 protein (procedure) [code [facility] Center = [id number]] Future Scheduled 1975 DIABETIC EYE EXAM [code = [facility] 00:00:00 DIABETIC EYE EXAM] Medical C enter Future Scheduled 1975 Diabetic foot examination [facility] 00:00:00 (regime/therapy) [code = [facility] [id number]] Future Scheduled 1975 Urine screening for [facility] 00:00:00 protein (procedure) [code Wi [facility] Center = [id number]] Future Scheduled 1975 DIABETIC EYE EXAM [code = [facility] 00:00:00 DIABETIC EYE EXAM] Medical C enter Future Scheduled 1975 Diabetic foot examination [facility] 00:00:00 (regime/therapy) [code = [facility] [id number]] Future Scheduled 1975 Urine screening for [facility] 00:00:00 protein (procedure) [code [facility] Center = [id number]] Future Scheduled 1975 DIABETIC EYE EXAM [code = [facility] 00:00:00 DIABETIC EYE EXAM] Medical C enter Future Scheduled 1975 Diabetic foot examination [facility] 00:00:00 (regime/therapy) [code = [facility] [id number]] Future Scheduled 1975 Urine screening for [facility] 00:00:00 protein (procedure) [code Wi [facility] Center = [id number]] Future Scheduled 1975 DIABETIC EYE EXAM [code = [facility] 00:00:00 DIABETIC EYE EXAM] Medical C enter Future Scheduled 1975 Diabetic foot examination [facility] 00:00:00 (regime/therapy) [code = [facility] [id number]] Future Scheduled 1975 Urine screening for [facility] 00:00:00 protein (procedure) [code [facility] = [id number]] Future Scheduled 1975 DIABETIC EYE EXAM [code = [facility] 00:00:00 DIABETIC EYE EXAM] Medical C enter Future Scheduled 1975 Diabetic foot examination [facility] 00:00:00 (regime/therapy) [code = [facility] [id number]] Future Scheduled 1975 Urine screening for [facility] 00:00:00 protein (procedure) [code [facility] = [id number]] Future Scheduled 1975 DIABETIC EYE EXAM [code = [facility] 00:00:00 DIABETIC EYE EXAM] Medical C enter Future Scheduled 1975 Diabetic foot examination [facility] 00:00:00 (regime/therapy) [code = [facility] [id number]] Future Scheduled 1975 Urine screening for [facility] 00:00:00 protein (procedure) [code [facility] = [id number]] Future Scheduled 1975 DIABETIC EYE EXAM [code = [facility] 00:00:00 DIABETIC EYE EXAM] Medical C enter Future Scheduled 1975 Diabetic foot examination [facility] 00:00:00 (regime/therapy) [code = [facility] [id number]] Future Scheduled 1975 Urine screening for [facility] 00:00:00 protein (procedure) [code [facility] = [id number]] Future Scheduled 1975 DIABETIC EYE EXAM [code = [facility] 00:00:00 DIABETIC EYE EXAM] Medical C enter Future Scheduled 1975 Diabetic foot examination [facility] 00:00:00 (regime/therapy) [code = [facility] [id number]] Future Scheduled 1975 Urine screening for [facility] 00:00:00 protein (procedure) [code [facility] = [id number]] Future Scheduled 1975 DIABETIC EYE EXAM [code = [facility] 00:00:00 DIABETIC EYE EXAM] Medical C enter Future Scheduled 1975 Diabetic foot examination [facility] 00:00:00 (regime/therapy) [code = [facility] [id number]] Future Scheduled 1975 Urine screening for [facility] 00:00:00 protein (procedure) [code [facility] = [id number]] Future Scheduled 1975 DIABETIC EYE EXAM [code = [facility] 00:00:00 DIABETIC EYE EXAM] Medical C enter Future Scheduled 1975 Diabetic foot examination [facility] 00:00:00 (regime/therapy) [code = [facility] [id number]] Future Scheduled 1975 Urine screening for [facility] 00:00:00 protein (procedure) [code Wi [facility]ical Center = [id number]] Future Scheduled 1975 DIABETIC EYE EXAM [code = [facility] 00:00:00 DIABETIC EYE EXAM] Medical C enter Future Scheduled 1975 Diabetic foot examination [facility] 00:00:00 (regime/therapy) [code = [facility] [id number]] Future Scheduled 1975 Urine screening for [facility] 00:00:00 protein (procedure) [code [facility] Center = [id number]] Future Scheduled 1975 DIABETIC EYE EXAM [code = [facility] 00:00:00 DIABETIC EYE EXAM] Medical C enter Future Scheduled 1975 Diabetic foot examination [facility] 00:00:00 (regime/therapy) [code = [facility] [id number]] Future Scheduled 1975 Urine screening for [facility] 00:00:00 protein (procedure) [code [facility] = [id number]] Future Scheduled 1975 DIABETIC EYE EXAM [code = [facility] 00:00:00 DIABETIC EYE EXAM] Medical C enter Future Scheduled 1975 Diabetic foot examination [facility] 00:00:00 (regime/therapy) [code = [facility] [id number]] Future Scheduled 1975 Urine screening for [facility] 00:00:00 protein (procedure) [code [facility] = [id number]] Future Scheduled 1975 DIABETIC EYE EXAM [code = [facility] 00:00:00 DIABETIC EYE EXAM] Medical C enter Future Scheduled 1975 Diabetic foot examination [facility] 00:00:00 (regime/therapy) [code = [facility] [id number]] Future Scheduled 1975 Urine screening for [facility] 00:00:00 protein (procedure) [code [facility] = [id number]] Future Scheduled 1975 DIABETIC EYE EXAM [code = [facility] 00:00:00 DIABETIC EYE EXAM] Medical C enter Future Scheduled 1975 Diabetic foot examination [facility] 00:00:00 (regime/therapy) [code = [facility] [id number]] Future Scheduled 1975 Urine screening for [facility] 00:00:00 protein (procedure) [code [facility] = [id number]] Future Scheduled 1975 DIABETIC EYE EXAM [code = [facility] 00:00:00 DIABETIC EYE EXAM] Medical C enter Future Scheduled 1975 Diabetic foot examination [facility] 00:00:00 (regime/therapy) [code = [facility] [id number]] Future Scheduled 1975 Urine screening for [facility] 00:00:00 protein (procedure) [code Me [facility] Center = [id number]] Future Scheduled 1975 DIABETIC EYE EXAM [code = [facility] 00:00:00 DIABETIC EYE EXAM] Medical C enter Future Scheduled [address] [facility] 00:00:00 (regime/therapy) [code = [facility] [id number]] Future Scheduled 1975 Urine screening for [facility] 00:00:00 protein (procedure) [code [facility] = [id number]] Future Scheduled 1975 DIABETIC EYE EXAM [code = [facility] 00:00:00 DIABETIC EYE EXAM] Medical C enter Future Scheduled 1975 Diabetic foot examination [facility] 00:00:00 (regime/therapy) [code = [facility] [id number]] Future Scheduled 1975 Urine screening for [facility] 00:00:00 protein (procedure) [code [facility] = [id number]] Future Scheduled 1975 DIABETIC EYE EXAM [code = [facility] 00:00:00 DIABETIC EYE EXAM] Medical C enter Future Scheduled 1975 Diabetic foot examination [facility] 00:00:00 (regime/therapy) [code = [facility] [id number]] Future Scheduled 1975 Urine screening for [facility] 00:00:00 protein (procedure) [code [facility] = [id number]] Future Scheduled 1965 COVID-19 VACCINE (#1) [facility] 00:[facility]:00 [code = COVID-19 VACCINE [facility] (#1)] Future Scheduled 1965 COVID-19 VACCINE (#1) [facility] 00:00:00 [code = COVID-19 VACCINE [facility] (#1)] Future Scheduled 1965 COVID-19 VACCINE (#1) [facility] 00:00:00 [code = COVID-19 VACCINE [facility] (#1)] Future Scheduled 1965 COVID-19 VACCINE (#1) [facility] 00:00:00 [code = COVID-19 VACCINE [facility] (#1)] Future Scheduled 1965 COVID-19 VACCINE (#1) [facility] 00:00:00 [code = COVID-19 VACCINE [facility] (#1)] Future Scheduled 1965 COVID-19 VACCINE (#1) [facility] 00:00:00 [code = COVID-19 VACCINE [facility] (#1)] Future Scheduled 1965 COVID-19 VACCINE (#1) [facility] 00:00:00 [code = COVID-19 VACCINE [facility] (#1)] Future Scheduled 1965 COVID-19 VACCINE (#1) [facility] 00:00:00 [code = COVID-19 VACCINE [facility] (#1)] Future Scheduled 1965 COVID-19 VACCINE (#1) [facility] 00:00:00 [code = COVID-19 VACCINE [facility] (#1)] Future Scheduled 1965 COVID-19 VACCINE (#1) [facility] 00:00:00 [code = COVID-19 VACCINE [facility] (#1)] Future Scheduled 1965 COVID-19 VACCINE (#1) [facility] 00:00:00 [code = COVID-19 VACCINE [facility] (#1)] Future Scheduled 1965 COVID-19 VACCINE (#1) [facility] 00:00:00 [code = COVID-19 VACCINE [facility] (#1)] Future Scheduled 1965 COVID-19 VACCINE (#1) [facility] 00:00:00 [code = COVID-19 VACCINE [facility] (#1)] Future Scheduled 1965 COVID-19 VACCINE (#1) [facility] 00:00:00 [code = COVID-19 VACCINE [facility] (#1)] Future Scheduled 1965 COVID-19 VACCINE (#1) [facility] 00:00:00 [code = COVID-19 VACCINE [facility] (#1)] Future Scheduled 1965 COVID-19 VACCINE (#1) [facility] 00:00:00 [code = COVID-19 VACCINE [facility] (#1)] Future Scheduled 1965 COVID-19 VACCINE (#1) [facility] 00:00:00 [code = COVID-19 VACCINE [facility] (#1)] Future Scheduled 1965 COVID-19 VACCINE (#1) [facility] 00:00:00 [code = COVID-19 VACCINE [facility] (#1)] Future Scheduled 1965 COVID-19 VACCINE (#1) [facility] 00:00:00 [code = COVID-19 VACCINE [facility] (#1)] Future Scheduled 1965 COVID-19 VACCINE (#1) [facility] 00:00:00 [code = COVID-19 VACCINE [facility] (#1)] Future Scheduled 1965 COVID-19 VACCINE (#1) [facility] 00:00:00 [code = COVID-19 VACCINE [facility] (#1)] Future Scheduled 1965 COVID-19 VACCINE (#1) [facility] 00:00:00 [code = COVID-19 VACCINE [facility] (#1)] Future Scheduled 1965 COVID-19 VACCINE (#1) [facility] 00:00:00 [code = COVID-19 VACCINE [facility] (#1)] Future Scheduled 1965 COVID-19 VACCINE (#1) [facility] 00:00:00 [code = COVID-19 VACCINE [facility] (#1)] Future Scheduled 1965 COVID-19 VACCINE (#1) [facility] 00:00:00 [code = COVID-19 VACCINE [facility] (#1)] Future Scheduled 1965 COVID-19 VACCINE (#1) [facility] 00:00:00 [code = COVID-19 VACCINE [facility] (#1)] Future Scheduled 1965 COVID-19 VACCINE (#1) [facility] 00:00:00 [code = COVID-19 VACCINE [facility] (#1)] Future Scheduled 1965 COVID-19 VACCINE (#1) [facility] 00:00:00 [code = COVID-19 VACCINE [facility] (#1)] Future Scheduled 1965 COVID-19 VACCINE (#1) [facility] 00:00:00 [code = COVID-19 VACCINE [facility] (#1)] Future Scheduled 1965 COVID-19 VACCINE (#1) [facility] 00:00:00 [code = COVID-19 VACCINE [facility] (#1)] Future Scheduled 1965 COVID-19 VACCINE (#1) [facility] 00:00:00 [code = COVID-19 VACCINE [facility] (#1)] Future 1965 CT Colonography (combo) [facility] 00:00:00 [code = CT Colonography [facility] (combo)] Future Scheduled 1965 Screening for malignant [facility] 00:00:00 neoplasm of colon Medical Ce [facility] (procedure) [code = [id number]] Future Scheduled 1965 Screening for malignant [facility] 00:00:00 neoplasm of colon Medical Ce [facility] (procedure) [code = [id number]] Future Scheduled 1965 Screening for malignant [facility] 00:00:00 neoplasm of colon Medical Ce [facility] (procedure) [code = [id number]] Future Scheduled 1965 Screening for malignant [facility] 00:00:00 neoplasm of colon [facility] Ce [facility] (procedure) [code = [id number]] Future Scheduled 1965 Sigmoidoscopy [code = [facility] 00:[facility] Sigmoidoscopy] [facility] Future Scheduled 1965 CT Colonography (combo) [facility] 00:00:00 [code = CT Colonography [facility] (combo)] Future Scheduled 1965 Screening for malignant [facility] 00:00:00 neoplasm of colon Medical Ce [facility] (procedure) [code = [id number]] Future Scheduled 1965 Screening for malignant [facility] 00:00:00 neoplasm of colon Medical Ce [facility] (procedure) [code = 429203989] Future Scheduled 1965 Screening for malignant [facility] 00:00:00 neoplasm of colon Medical Ce [facility] (procedure) [code = [id number]] Future Scheduled 1965 Screening for malignant [facility] 00:00:00 neoplasm of colon Medical Ce [facility] (procedure) [code = [id number]] Future Scheduled 1965 Sigmoidoscopy [code = [facility] 00:[facility] Sigmoidoscopy] [facility] Future Scheduled 1965 CT Colonography (combo) [facility] 00:00:00 [code = CT [facility] ([facility])] Future Scheduled 1965 Screening for malignant [facility] 00:00:00 neoplasm of colon [facility] (procedure) [code = [id number]] Future Scheduled 1965 Screening for malignant [facility] 00:00:00 neoplasm of colon Medical Ce [facility] (procedure) [code = [id number]] Future Scheduled 1965 Screening for malignant [facility] 00:00:00 neoplasm of colon [facility] Ce [facility] (procedure) [code = [id number]] Future Scheduled 1965 Screening for malignant [facility] 00:00:00 neoplasm of colon [facility] (procedure) [code = [id number]] Future Scheduled 1965 Sigmoidoscopy [code = [facility] 00:[facility] Sigmoidoscopy] [facility] Future Scheduled 1965 CT Colonography (combo) [facility] 00:00:00 [code = CT [facility] ([facility])] Future Scheduled 1965 Screening for malignant [facility] 00:00:00 neoplasm of colon Medical Ce [facility] (procedure) [code = 230391666] Future Scheduled 1965 Screening for malignant [facility] 00:00:00 neoplasm of colon Medical Ce [facility] (procedure) [code = [id number]] Future Scheduled 1965 Screening for malignant [facility] 00:00:00 neoplasm of colon Medical Ce [facility] (procedure) [code = [id number]] Future Scheduled 1965 Screening for malignant [facility] 00:00:00 neoplasm of colon Medical Ce [facility] (procedure) [code = 601160544] Future Scheduled 1965 Sigmoidoscopy [code = [facility] 00:[facility] Sigmoidoscopy] [facility] Future Scheduled 1965 CT Colonography (combo) [facility] 00:00:00 [code = CT [facility] ([facility])] Future Scheduled 1965 Screening for malignant [facility] 00:00:00 neoplasm of colon Medical Ce [facility] (procedure) [code = 611169849] Future Scheduled 1965 Screening for malignant [facility] 00:00:00 neoplasm of colon Medical Ce [facility] (procedure) [code = [id number]] Future Scheduled 1965 Screening for malignant [facility] 00:00:00 neoplasm of colon [facility] (procedure) [code = 608255494] Future Scheduled 1965 Screening for malignant [facility] 00:00:00 neoplasm of colon [facility] (procedure) [code = [id number]] Future Scheduled 1965 Sigmoidoscopy [code = [facility] 00:[facility] S[facility]oidoscopy] [facility] Future Scheduled 1965 CT Colonography (combo) [facility] 00:00:00 [code = CT Colonography [facility] (combo)] Future Scheduled 1965 Screening for malignant [facility] 00:00:00 neoplasm of colon Medical Ce [facility] (procedure) [code = 554963560] Future Scheduled 1965 Screening for malignant [facility] 00:00:00 neoplasm of colon Medical Ce [facility] (procedure) [code = 114209151] Future Scheduled 1965 Screening for malignant [facility] 00:00:00 neoplasm of colon Medical Ce [facility] (procedure) [code = 154666743] Future Scheduled 1965 Screening for malignant [facility] 00:00:00 neoplasm of colon [facility] (procedure) [code = [id number]] Future Scheduled 1965 Sigmoidoscopy [code = [facility] 00:[facility] Sigmoidoscopy] [facility] Future Scheduled 1965 CT Colonography (combo) [facility] 00:00:00 [code = CT [facility] (com[facility])] Future Scheduled 1965 Screening for malignant [facility] 00:00:00 neoplasm of colon Medical Ce [facility] (procedure) [code = [id number]] Future Scheduled 1965 Screening for malignant [facility] 00:00:00 neoplasm of colon Medical Ce [facility] (procedure) [code = 144272378] Future Scheduled 1965 Screening for malignant [facility] 00:00:00 neoplasm of colon Medical [facility] (procedure) [code = 649297685] Future Scheduled 1965 Screening for malignant [facility] 00:00:00 neoplasm of colon Medical [facility] (procedure) [code = 993562421] Future Scheduled 1965 Sigmoidoscopy [code = [facility] 00:[facility] Sigmoidoscopy] [facility] Future Scheduled 1965 CT Colonography (combo) [facility] 00:00:00 [code = CT Colonography [facility] (combo)] Future Scheduled 1965 CT Colonography (combo) [facility] 00:00:00 [code = CT Colonography [facility] (combo)] Future Scheduled 1965 Screening for malignant [facility] 00:00:00 neoplasm of colon Medical Ce [facility] (procedure) [code = 890731583] Future Scheduled 1965 Screening for malignant [facility] 00:00:00 neoplasm of colon Medical Ce [facility] (procedure) [code = 123945270] Future Scheduled 1965 Screening for malignant [facility] 00:00:00 neoplasm of colon Medical Ce [facility] (procedure) [code = [id number]] Future Scheduled 1965 Screening for malignant [facility] 00:00:00 neoplasm of colon Medical Ce [facility] (procedure) [code = [id number]] Future Scheduled 1965 Screening for malignant [facility] 00:00:00 neoplasm of colon Medical Ce [facility] (procedure) [code = 576734921] Future Scheduled 1965 Sigmoidoscopy [code = [facility] 00:[facility] Sigmoidoscopy] [facility] Future Scheduled 1965 Screening for malignant [facility] 00:00:00 neoplasm of colon Medical [facility] (procedure) [code = 488769827] Future Scheduled 1965 Screening for malignant [facility] 00:00:00 neoplasm of colon Medical Ce [facility] (procedure) [code = [id number]] Future Scheduled 1965 CT Colonography (combo) [facility] 00:00:00 [code = CT Colonography [facility] (combo)] Future Scheduled 1965 Screening for malignant [facility] 00:00:00 neoplasm of colon Medical Ce [facility] (procedure) [code = [id number]] Future Scheduled 1965 Screening for malignant [facility] 00:00:00 neoplasm of colon Medical [facility] (procedure) [code = 599962564] Future Scheduled 1965 Screening for malignant [facility] 00:00:00 neoplasm of colon Medical [facility] (procedure) [code = 609546590] Future Scheduled 1965 Screening for malignant [facility] 00:00:00 neoplasm of colon Medical [facility] (procedure) [code = 318109726] Future Scheduled 1965 Screening for malignant [facility] 00:00:00 neoplasm of colon [facility] (procedure) [code = 617677114] Future Scheduled 1965 Sigmoidoscopy [code = [facility] 00:[facility] S[facility]oscopy] [facility] Future Scheduled 1965 Sigmoidoscopy [code = [facility] 00:[facility] Sigmoidoscopy] [facility] Future Scheduled 1965 CT Colonography (combo) [facility] 00:00:00 [code = CT Colonography [facility] (combo)] Future Scheduled 1965 Screening for malignant [facility] 00:00:00 neoplasm of colon Medical Ce [facility] (procedure) [code = [id number]] Future Scheduled 1965 Screening for malignant [facility] 00:00:00 neoplasm of colon Medical [facility] (procedure) [code = 447847804] Future Scheduled 1965 Screening for malignant [facility] 00:00:00 neoplasm of colon [facility] (procedure) [code = 453472989] Future Scheduled 1965 Screening for malignant [facility] 00:00:00 neoplasm of colon [facility] (procedure) [code = 404695409] Future Scheduled 1965 Sigmoidoscopy [code = [facility] 00:[facility] S[facility]oidoscopy] [facility] Future Scheduled 1965 CT Colonography (combo) [facility] 00:00:00 [code = CT Colonography [facility] (combo)] Future Scheduled 1965 Screening for malignant [facility] 00:00:00 neoplasm of colon Medical Ce [facility] (procedure) [code = [id number]] Future Scheduled 1965 Screening for malignant [facility] 00:00:00 neoplasm of colon [facility] (procedure) [code = 888160201] Future Scheduled 1965 Screening for malignant [facility] 00:00:00 neoplasm of colon Medical [facility] (procedure) [code = 383447663] Future Scheduled 1965 Screening for malignant [facility] 00:00:00 neoplasm of colon [facility] (procedure) [code = 727151613] Future Scheduled 1965 Sigmoidoscopy [code = [facility] 00:[facility] S[facility]oidoscopy] [facility] Future Scheduled 1965 CT Colonography (combo) [facility] 00:00:00 [code = CT Colonography [facility] (combo)] Future Scheduled 1965 Screening for malignant [facility] 00:00:00 neoplasm of colon Medical Ce [facility] (procedure) [code = 299652802] Future Scheduled 1965 Screening for malignant [facility] 00:00:00 neoplasm of colon Medical Ce [facility] (procedure) [code = 528493064] Future Scheduled 1965 Screening for malignant [facility] 00:00:00 neoplasm of colon Medical Ce [facility] (procedure) [code = 925313625] Future Scheduled 1965 Screening for malignant [facility] 00:00:00 neoplasm of colon Medical [facility] (procedure) [code = 691878564] Future Scheduled 1965 Sigmoidoscopy [code = [facility] 00:[facility] S[facility]oidoscopy] [facility] Future Scheduled 1965 CT Colonography (combo) [facility] 00:00:00 [code = CT Colonography [facility] (combo)] Future Scheduled 1965 Screening for malignant [facility] 00:00:00 neoplasm of colon Medical [facility] (procedure) [code = 539044011] Future Scheduled 1965 Screening for malignant [facility] 00:00:00 neoplasm of colon Medical [facility] (procedure) [code = [id number]] Future Scheduled 1965 Screening for malignant [facility] 00:00:00 neoplasm of colon Medical Ce [facility] (procedure) [code = 241794107] Future Scheduled 1965 Screening for malignant [facility] 00:00:00 neoplasm of colon Medical Ce [facility] (procedure) [code = 005157717] Future Scheduled 1965 Sigmoidoscopy [code = [facility] 00:[facility] S[facility]oscopy] [facility] Future Scheduled 1965 CT Colonography (combo) [facility] 00:00:00 [code = CT [facility] ([facility])] Future Scheduled 1965 Screening for malignant [facility] 00:00:00 neoplasm of colon Medical [facility] (procedure) [code = 325380487] Future Scheduled 1965 Screening for malignant [facility] 00:00:00 neoplasm of colon Medical [facility] (procedure) [code = 250185049] Future Scheduled 1965 Screening for malignant [facility] 00:00:00 neoplasm of colon Medical Ce [facility] (procedure) [code = 060986737] Future Scheduled 1965 Screening for malignant [facility] 00:00:00 neoplasm of colon [facility] (procedure) [code = 383736959] Future Scheduled 1965 Sigmoidoscopy [code = [facility] 00:[facility] S[facility]oidoscopy] [facility] Future Scheduled 1965 CT Colonography (combo) [facility] 00:00:00 [code = CT [facility] ([facility])] Future Scheduled 1965 Screening for malignant [facility] 00:00:00 neoplasm of colon Medical Ce [facility] (procedure) [code = 329173416] Future Scheduled 1965 Screening for malignant [facility] 00:00:00 neoplasm of colon Medical Ce [facility] (procedure) [code = 145803253] Future Scheduled 1965 Screening for malignant [facility] 00:00:00 neoplasm of colon Medical Ce [facility] (procedure) [code = 439508917] Future Scheduled 1965 Screening for malignant [facility] 00:00:00 neoplasm of colon Medical [facility] (procedure) [code = 787638626] Future Scheduled 1965 Sigmoidoscopy [code = [facility] 00:[facility] S[facility]oscopy] [facility] Future Scheduled 1965 CT Colonography (combo) [facility] 00:00:00 [code = CT Colonography [facility] (combo)] Future Scheduled 1965 Screening for malignant [facility] 00:00:00 neoplasm of colon Medical Ce [facility] (procedure) [code = 164222565] Future Scheduled 1965 Screening for malignant [facility] 00:00:00 neoplasm of colon Medical Ce [facility] (procedure) [code = 932767394] Future Scheduled 1965 Screening for malignant [facility] 00:00:00 neoplasm of colon Medical Ce [facility] (procedure) [code = 689603701] Future Scheduled 1965 Screening for malignant [facility] 00:00:00 neoplasm of colon Medical [facility] (procedure) [code = 178812361] Future Scheduled 1965 Sigmoidoscopy [code = [facility] S[facility]] [facility] Future Scheduled 1965 CT Colonography (combo) [facility] 00:00:00 [code = CT Colonography [facility] (combo)] Future Scheduled 1965 Screening for malignant [facility] 00:00:00 neoplasm of colon Medical [facility] (procedure) [code = 605592428] Future Scheduled 1965 Screening for malignant [facility] 00:00:00 neoplasm of colon Medical [facility] (procedure) [code = 930908668] Future Scheduled 1965 Screening for malignant [facility] 00:00:00 neoplasm of colon Medical [facility] (procedure) [code = 534615400] Future Scheduled 1965 Screening for malignant [facility] 00:00:00 neoplasm of colon Medical [facility] (procedure) [code = 103743940] Future Scheduled 1965 Sigmoidoscopy [code = [facility] 00:[facility] S[facility]oscopy] [facility] Future Scheduled 1965 CT Colonography (combo) [facility] 00:00:00 [code = [facility] ([facility])] Future Scheduled 1965 CT Colonography (combo) [facility] 00:00:00 [code = CT [facility] (com[facility])] Future Scheduled 1965 Screening for malignant [facility] 00:00:00 neoplasm of colon Medical [facility] (procedure) [code = 567055527] Future Scheduled 1965 Screening for malignant [facility] 00:00:00 neoplasm of colon Medical Ce [facility] (procedure) [code = 172531218] Future Scheduled 1965 Screening for malignant [facility] 00:00:00 neoplasm of colon [facility] (procedure) [code = 997096191] Future Scheduled 1965 Screening for malignant [facility] 00:00:00 neoplasm of colon [facility] (procedure) [code = 888485885] Future Scheduled 1965 Sigmoidoscopy [code = [facility] 00:[facility] S[facility]oscopy] [facility] Future Scheduled 1965 Screening for malignant [facility] 00:00:00 neoplasm of colon Medical [facility] (procedure) [code = 016948363] Future Scheduled 1965 Screening for malignant [facility] 00:00:00 neoplasm of colon Medical [facility] (procedure) [code = 663437843] Future Scheduled 1965 Screening for malignant [facility] 00:00:00 neoplasm of colon Medical [facility] (procedure) [code = [id number]] Future Scheduled 1965 CT Colonography (combo) [facility] 00:00:00 [code = CT [facility] (com[facility])] Future Scheduled 1965 Screening for malignant [facility] 00:00:00 neoplasm of colon Medical [facility] (procedure) [code = 892584134] Future Scheduled 1965 Screening for malignant [facility] 00:00:00 neoplasm of colon Medical Ce [facility] (procedure) [code = 888610844] Future Scheduled 1965 Screening for malignant [facility] 00:00:00 neoplasm of colon Medical Ce [facility] (procedure) [code = 047019049] Future Scheduled 1965 Screening for malignant [facility] 00:00:00 neoplasm of colon Medical Ce [facility] (procedure) [code = 401063944] Future Scheduled 1965 Sigmoidoscopy [code [facility]] [facility] Future Scheduled 1965 Screening for malignant [facility] 00:00:00 neoplasm of colon Medical Ce [facility] (procedure) [code = 542632205] Future Scheduled 1965 Sigmoidoscopy [code = [facility] 00:[facility] S[facility]oidoscopy] [facility] Future Scheduled 1965 CT Colonography (combo) [facility] 00:00:00 [code = CT Colonography [facility] (combo)] Future Scheduled 1965 Screening for malignant [facility] 00:00:00 neoplasm of colon [facility] (procedure) [code = 186365758] Future Scheduled 1965 Screening for malignant [facility] 00:00:00 neoplasm of colon [facility] (procedure) [code = 704439366] Future Scheduled 1965 Screening for malignant [facility] 00:00:00 neoplasm of colon [facility] (procedure) [code = 631247084] Future Scheduled 1965 Screening for malignant [facility] 00:00:00 neoplasm of colon [facility] (procedure) [code = 812778791] Future Scheduled 1965 Sigmoidoscopy [code = [facility]] [facility] Future Scheduled 1965 CT Colonography (combo) [facility] 00:00:00 [code = CT [facility] ([facility])] Future Scheduled 1965 Screening for malignant [facility] 00:00:00 neoplasm of colon [facility] (procedure) [code = 206808086] Future Scheduled 1965 Screening for malignant [facility] 00:00:00 neoplasm of colon Medical [facility] (procedure) [code = 895302130] Future Scheduled 1965 Screening for malignant [facility] 00:00:00 neoplasm of colon Medical [facility] (procedure) [code = 650301457] Future Scheduled 1965 Screening for malignant [facility] 00:00:00 neoplasm of colon [facility] (procedure) [code = 948390902] Future Scheduled 1965 Sigmoidoscopy [code = [facility] 00:[facility] S[facility]oscopy] [facility] Future Scheduled 1965 CT Colonography (combo) [facility] 00:00:00 [code = [facility] ([facility])] Future Scheduled 1965 Screening for malignant [facility] 00:00:00 neoplasm of colon Medical [facility] (procedure) [code = 718960204] Future Scheduled 1965 Screening for malignant [facility] 00:00:00 neoplasm of colon [facility] (procedure) [code = 673979318] Future Scheduled 1965 Screening for malignant [facility] 00:00:00 neoplasm of colon [facility] (procedure) [code = 258241930] Future Scheduled 1965 Screening for malignant [facility] 00:00:00 neoplasm of colon [facility] (procedure) [code = 096688282] Future Scheduled 1965 Sigmoidoscopy [code [facility]] [facility] Future Scheduled 1965 CT Colonography (combo) [facility] 00:00:00 [code = [facility] ([facility])] Future Scheduled 1965 Screening for malignant [facility] 00:00:00 neoplasm of colon Medical Ce nter (procedure) [code = [id number]] Future Scheduled 1965 Screening for malignant [facility] 00:00:00 neoplasm of colon Medical Ce nter (procedure) [code = 730052221] Future Scheduled 1965 Screening for malignant [facility] 00:00:00 neoplasm of colon Medical Ce nter (procedure) [code = 822048058] Future Scheduled 1965 Screening for malignant [facility] 00:00:00 neoplasm of colon Medical Ce nter (procedure) [code = 260004474] Future Scheduled 1965 Sigmoidoscopy [code = [facility]] [facility] Cent[facility] Future Scheduled 1965 CT Colonography (combo) [facility] 00:00:00 [code = CT Colonography [facility] (combo)] Future Scheduled 1965 Screening for malignant [facility] 00:00:00 neoplasm of colon Medical Ce nter (procedure) [code = 606135931] Future Scheduled 1965 Screening for malignant [facility] 00:00:00 neoplasm of colon Medical Ce nter (procedure) [code = 257370590] Future Scheduled 1965 Screening for malignant [facility] 00:00:00 neoplasm of colon Medical Ce nter (procedure) [code = 880216648] Future Scheduled 1965 Screening for malignant [facility] 00:00:00 neoplasm of colon Medical Ce nter (procedure) [code = 564408621] Future Scheduled 1965 Sigmoidoscopy [code = [facility] S[facility]] Medical Cent[facility] Future Scheduled 1965 CT Colonography (combo) [facility] 00:00:00 [code = CT Colonography [facility] (combo)] Future Scheduled 1965 Screening for malignant [facility] 00:00:00 neoplasm of colon Medical Ce nter (procedure) [code = 599557295] Future Scheduled 1965 Screening for malignant [facility] 00:00:00 neoplasm of colon Medical Ce nter (procedure) [code = 337962853] Future Scheduled 1965 Screening for malignant [facility] 00:00:00 neoplasm of colon Medical Ce nter (procedure) [code = 027719871] Future Scheduled 1965 Screening for malignant [facility] 00:00:00 neoplasm of colon Medical Ce nter (procedure) [code = 686295720] Future Scheduled 1965 Sigmoidoscopy [code = [facility] S[facility]] Medical Krishnae r Future Scheduled 1965 CT Colonography (combo) [facility] 00:00:00 [code = CT [facility] Future Scheduled 1965 Screening for malignant [facility] 00:00:00 neoplasm of colon Medical Ce nter (procedure) [code = 763491323] Future Scheduled 1965 Screening for malignant [facility] 00:00:00 neoplasm of colon Medical Ce nter (procedure) [code = 306220321] Future Scheduled 1965 Screening for malignant [facility] 00:00:00 neoplasm of colon Medical Ce nter (procedure) [code = 462829832] Future Scheduled 1965 Screening for malignant [facility] 00:00:00 neoplasm of colon Medical Ce nter (procedure) [code = 768331244] Future Scheduled 1965 Sigmoidoscopy [code = [facility] S[facility]oscopy] Medical Krishnae r Future Scheduled 1965 CT Colonography (combo) [facility] 00:00:00 [code = CT [facility] Future Scheduled 1965 Screening for malignant [facility] 00:00:00 neoplasm of colon Medical Ce nter (procedure) [code = 200462140] Future Scheduled 1965 Screening for malignant [facility] 00:00:00 neoplasm of colon Medical Ce nter (procedure) [code = 195128265] Future Scheduled 1965 Screening for malignant [facility] 00:00:00 neoplasm of colon Medical Ce nter (procedure) [code = 168551085] Future Scheduled 1965 Screening for malignant [facility] 00:00:00 neoplasm of colon Medical Ce nter (procedure) [code = 532107217] Future Scheduled 1965 Sigmoidoscopy [code = [facility] S[facility]oscopy] Medical Krishnae r Future Scheduled 1965 CT Colonography (combo) [facility] 00:00:00 [code = CT [facility] ([facility])] Future Scheduled 1965 Screening for malignant [facility] 00:00:00 neoplasm of colon Medical Ce nter (procedure) [code = 507183867] Future Scheduled 1965 Screening for malignant [facility] 00:00:00 neoplasm of colon Medical Ce nter (procedure) [code = 810531875] Future Scheduled 1965 Screening for malignant [facility] 00:00:00 neoplasm of colon Medical Ce nter (procedure) [code = 893996327] Future Scheduled 1965 Screening for malignant [facility] 00:00:00 neoplasm of colon Medical Ce nter (procedure) [code = 761455331] Future Scheduled 1965 Sigmoidoscopy [code = [facility] S[facility]] Medical Cent[facility] Future Scheduled 1965 CT Colonography (combo) [facility] 00:00:00 [code = CT Colonography [facility] (combo)] Future Scheduled 1965 Screening for malignant [facility] 00:00:00 neoplasm of colon Medical Ce nter (procedure) [code = 288127035] Future Scheduled 1965 Screening for malignant [facility] 00:00:00 neoplasm of colon Medical Ce nter (procedure) [code = 261879260] Future Scheduled 1965 Screening for malignant [facility] 00:00:00 neoplasm of colon Medical Ce nter (procedure) [code = 885957116] Future Scheduled 1965 Screening for malignant [facility] 00:00:00 neoplasm of colon Medical Ce nter (procedure) [code = 177592466] Future Scheduled 1965 Sigmoidoscopy [code = [facility]] Medical Cente r Goal Plan of Care Note [code = 13610-9] Goal Plan of Care Note [code = 59890-1] Goal Plan of Care Note [code = 76499-9] Goal Plan of Care Note [code = 27518-2] Goal Plan of Care Note [code = 53765-5] Goal Plan of Care Note [code = 96578-6] Goal Plan of Care Note [code = 90192-0] Goal Plan of Care Note [code = 51206-7] Goal Plan of Care Note [code = 62324-4] Goal Plan of Care Note [code = 98951-5] Goal Plan of Care Note [code = 61965-7] Goal Plan of Care Note [code = 74425-8] Goal Plan of Care Note [code = 55151-9] Goal Plan of Care Note [code = 99536-2] Goal Plan of Care Note [code = 21514-9] Goal Plan of Care Note [code = 58077-0] Goal Plan of Care Note [code = 97671-7] Goal Plan of Care Note [code = 10946-1] Goal Plan of Care Note [code = 43221-2] Goal Plan of Care Note [code = 28850-6] Goal Plan of Care Note [code = 15191-7] Goal Plan of Care Note [code = 99661-2] Goal Plan of Care Note [code = 81168-4] Goal Plan of Care Note [code = 04186-3] Goal Plan of Care Note [code = 51040-6] Goal Plan of Care Note [code = 80249-6] Goal Plan of Care Note [code = 28424-6] Goal Plan of Care Note [code = 99402-2] Goal Plan of Care Note [code = 20568-0] Goal Plan of Care Note [code = 81649-4] Goal Plan of Care Note [code = 40031-6] Goal Plan of Care Note [code = 41315-6] Goal Plan of Care Note [code = 61027-3] Goal Plan of Care Note [code = 11252-9] Goal Plan of Care Note [code = 49177-0] Goal Plan of Care Note [code = 28696-2] Goal Plan of Care Note [code = 63525-7] Goal Plan of Care Note [code = 44773-3] Goal Plan of Care Note [code = 34495-8] Goal Plan of Care Note [code = 10087-1] Goal Plan of Care Note [code = 87622-0] Goal Plan of Care Note [code = 24875-5] Goal Plan of Care Note [code = 22831-2] Goal Plan of Care Note [code = 52903-5] Goal Plan of Care Note [code = 44837-4] Goal Plan of Care Note [code = 86145-1] Goal Plan of Care Note [code = 06455-3] Goal Plan of Care Note [code = 59584-2] Goal Plan of Care Note [code = 18459-7] Goal Plan of Care Note [code = 01987-1] Goal Plan of Care Note [code = 52333-4] Goal Plan of Care Note [code = 55367-3] Goal Plan of Care Note [code = 50961-5] Goal Plan of Care Note [code = 73085-0] Goal Plan of Care Note [code = 79305-3] Goal Plan of Care Note [code = 26595-4] Goal Plan of Care Note [code = 83046-7] Goal Plan of Care Note [code = 95645-0] Goal Plan of Care Note [code = 43792-2] Goal Plan of Care Note [code = 74884-5] Goal Plan of Care Note [code = 27055-9] Goal Plan of Care Note [code = 30952-8] Goal Plan of Care Note [code = 01930-9] Goal Plan of Care Note [code = 15382-5] Goal Plan of Care Note [code = 72635-0] Goal Plan of Care Note [code = 36128-7] Goal Plan of Care Note [code = 94988-9] Goal Plan of Care Note [code = 04218-9] Goal Plan of Care Note [code = 03304-9] Goal Plan of Care Note [code = 54671-4] Goal Plan of Care Note [code = 01930-1] Goal Plan of Care Note [code = 83206-1] Goal Plan of Care Note [code = 61667-5] Goal Plan of Care Note [code = 20527-5] Goal Plan of Care Note [code = 74789-6] Goal Plan of Care Note [code = 58852-5] Goal Plan of Care Note [code = 55302-5] Goal Plan of Care Note [code = 76960-6] Goal Plan of Care Note [code = 06137-0] Goal Plan of Care Note [code = 02201-0] Goal Plan of Care Note [code = 37604-2] Goal Plan of Care Note [code = 28077-3] Goal Plan of Care Note [code = 79980-1] Goal Plan of Care Note [code = 89300-8] Goal Plan of Care Note [code = 79464-4] Goal Plan of Care Note [code = 95791-6] Goal Plan of Care Note [code = 62055-6] Goal Plan of Care Note [code = 58218-5] Goal Plan of Care Note [code = 93671-4] Goal Plan of Care Note [code = 56110-5] Goal Plan of Care Note [code = 30530-8] Goal Plan of Care Note [code = 30345-1] Goal Plan of Care Note [code = 38713-3] Goal Plan of Care Note [code = 02900-2] Goal Plan of Care Note [code = 77047-2] Goal Plan of Care Note [code = 45265-1] Goal Plan of Care Note [code = 02897-3] Goal Plan of Care Note [code = 09282-8] Goal Plan of Care Note [code = 01662-6] Goal Plan of Care Note [code = 52798-0] Goal Plan of Care Note [code = 08264-1] Goal Plan of Care Note [code = 05726-8] Goal Plan of Care Note [code = 60392-2] Goal Plan of Care Note [code = 72639-0] Goal Plan of Care Note [code = 28981-1] Goal Plan of Care Note [code = 23573-0] Goal Plan of Care Note [code = 10722-7] Goal Plan of Care Note [code = 21206-2] Goal Plan of Care Note [code = 83348-0] Goal Plan of Care Note [code = 21966-5] Goal Plan of Care Note [code = 16098-8] Goal Plan of Care Note [code = 87625-2] Goal Plan of Care Note [code = 79500-5] Goal Plan of Care Note [code = 22651-3] Goal Plan of Care Note [code = 24253-4] Goal Plan of Care Note [code = 43390-4] Goal Plan of Care Note [code = 90865-2] Goal Plan of Care Note [code = 21807-6] Goal Plan of Care Note [code = 27138-5] Goal Plan of Care Note [code = 17008-8] Goal Plan of Care Note [code = 78644-3] Goal Plan of Care Note [code = 00044-0] Goal Plan of Care Note [code = 79876-3] Goal Plan of Care Note [code = 62521-4] Goal Plan of Care Note [code = 26146-4] Goal Plan of Care Note [code = 00651-3] Goal Plan of Care Note [code = 56125-8] Goal Plan of Care Note [code = 25989-0] Goal Plan of Care Note [code = 25853-5] Goal Plan of Care Note [code = 33028-5] Goal Plan of Care Note [code = 46463-0] Goal Plan of Care Note [code = 57891-5] Goal Plan of Care Note [code = 28101-3] Goal Plan of Care Note [code = 45948-6] Goal Plan of Care Note [code = 05141-6] Goal Plan of Care Note [code = 43210-4] Goal Plan of Care Note [code = 68465-4] Goal Plan of Care Note [code = 97766-0] Goal Plan of Care Note [code = 48010-0] Goal Plan of Care Note [code = 50254-3] Goal Plan of Care Note [code = 43882-9] Goal Plan of Care Note [code = 55870-3] Goal Plan of Care Note [code = 67220-2] Goal Plan of Care Note [code = 76966-1] Goal Plan of Care Note [code = 43638-9] Goal Plan of Care Note [code = 41808-2] Goal Plan of Care Note [code = 08176-0] Goal Plan of Care Note [code = 39501-4] Goal Plan of Care Note [code = 90278-5] Goal Plan of Care Note [code = 57171-3] Goal Plan of Care Note [code = 57659-8] Goal Plan of Care Note [code = 44417-2] Goal Plan of Care Note [code = 85407-1] Goal Plan of Care Note [code = 56430-8] Goal Plan of Care Note [code = 54111-3] Goal Plan of Care Note [code = 59981-7] Goal Plan of Care Note [code = 36418-2] Goal Plan of Care Note [code = 07629-8] Goal Plan of Care Note [code = 75768-0] Goal Plan of Care Note [code = 60146-2] Goal Plan of Care Note [code = 10761-2] Goal Plan of Care Note [code = 19319-3] Goal Plan of Care Note [code = 36322-4] Goal Plan of Care Note [code = 44120-7] Goal Plan of Care Note [code = 28640-7] Goal Plan of Care Note [code = 69472-1] Goal Plan of Care Note [code = 82850-6] Goal Plan of Care Note [code = 07360-3] Goal Plan of Care Note [code = 65866-8] Goal Plan of Care Note [code = 03187-0] Goal Plan of Care Note [code = 01189-8] Goal Plan of Care Note [code = 66367-6] Goal Plan of Care Note [code = 73794-7] Goal Plan of Care Note [code = 98805-6] Goal Plan of Care Note [code = 22371-6] Goal Plan of Care Note [code = 13593-2] Goal Plan of Care Note [code = 07745-6] Goal Plan of Care Note [code = 27608-2] Goal Plan of Care Note [code = 55817-4] Goal Plan of Care Note [code = 33950-9] Goal Plan of Care Note [code = 59722-9] Goal Plan of Care Note [code = 82018-4] Goal Plan of Care Note [code = 23339-1] Goal Plan of Care Note [code = 39493-4] Goal Plan of Care Note [code = 95927-2] Goal Plan of Care Note [code = 92408-8] Goal Plan of Care Note [code = 55334-2] Goal Plan of Care Note [code = 16955-8] Goal Plan of Care Note [code = 23941-3] Goal Plan of Care Note [code = 65966-9] Goal Plan of Care Note [code = 77194-5] Goal Plan of Care Note [code = 19006-7] Goal Plan of Care Note [code = 93897-6] Goal Plan of Care Note [code = 81996-4] Goal Plan of Care Note [code = 51817-4] Goal Plan of Care Note [code = 01896-9] Goal Plan of Care Note [code = 67577-4] Goal Plan of Care Note [code = 62176-7] Goal Plan of Care Note [code = 26055-2] Goal Plan of Care Note [code = 10757-9] Goal Plan of Care Note [code = 80411-2] Goal Plan of Care Note [code = 99558-5] Goal Plan of Care Note [code = 34718-4] Goal Plan of Care Note [code = 42031-6] Goal Plan of Care Note [code = 43630-5] Goal Plan of Care Note [code = 90817-2] Goal Plan of Care Note [code = 78318-7] Goal Plan of Care Note [code = 36045-7] Goal Plan of Care Note [code = 38376-9] Goal Plan of Care Note [code = 39838-8] Goal Plan of Care Note [code = 16796-3] Goal Plan of Care Note [code = 83391-1] Goal Plan of Care Note [code = 93439-1] Goal Plan of Care Note [code = 23186-6] Goal Plan of Care Note [code = 93854-3] Goal Plan of Care Note [code = 83091-6] Goal Plan of Care Note [code = 10793-2] Goal Plan of Care Note [code = 07149-5] Goal Plan of Care Note [code = 12154-8] Goal Plan of Care Note [code = 30825-2] Goal Plan of Care Note [code = 28815-0] Goal Plan of Care Note [code = 12288-8] Goal Plan of Care Note [code = 47793-1] Goal Plan of Care Note [code = 91463-5] Goal Plan of Care Note [code = 47807-4] Goal Plan of Care Note [code = 75451-8] Goal Plan of Care Note [code = 48600-7] Goal Plan of Care Note [code = 57892-9] Goal Plan of Care Note [code = 10484-5] Goal Plan of Care Note [code = 20732-6] Goal Plan of Care Note [code = 54383-0] Goal Plan of Care Note [code = 61687-9] Goal Plan of Care Note [code = 43052-7] Goal Plan of Care Note [code = 52901-2] Goal Plan of Care Note [code = 86235-6] Goal Plan of Care Note [code = 25423-2] Goal Plan of Care Note [code = 22482-3] Goal Plan of Care Note [code = 91687-1] Goal Plan of Care Note [code = 52804-8] Goal Plan of Care Note [code = 94797-0] Goal Plan of Care Note [code = 34538-2] Goal Plan of Care Note [code = 03786-0] Goal Plan of Care Note [code = 51503-8] Goal Plan of Care Note [code = 20826-7] Goal Plan of Care Note [code = 96972-2] Goal Plan of Care Note [code = 43308-0] Goal Plan of Care Note [code = 08077-9] Goal Plan of Care Note [code = 96333-5] Goal Plan of Care Note [code = 23572-9] Goal Plan of Care Note [code = 46392-4] Goal Plan of Care Note [code = 01304-4] Goal Plan of Care Note [code = 96879-5] Goal Plan of Care Note [code = 76026-2] Goal Plan of Care Note [code = 43889-3] Goal Plan of Care Note [code = 02532-7] Goal Plan of Care Note [code = 71502-0] Goal Plan of Care Note [code = 91805-7] Goal Plan of Care Note [code = 76797-3] Goal Plan of Care Note [code = 30893-7] Goal Plan of Care Note [code = 64883-2] Goal Plan of Care Note [code = 27192-4] Goal Plan of Care Note [code = 47457-6] Goal Plan of Care Note [code = 55600-7] Goal Plan of Care Note [code = 43697-1] Goal Plan of Care Note [code = 28854-2] Goal Plan of Care Note [code = 53782-8] Goal Plan of Care Note [code = 65276-2] Goal Plan of Care Note [code = 06311-0] Goal Plan of Care Note [code = 61656-8] Goal Plan of Care Note [code = 19167-5] Goal Plan of Care Note [code = 37110-3] Goal Plan of Care Note [code = 95675-8] Goal Plan of Care Note [code = 66863-2] Goal Plan of Care Note [code = 15338-2] Goal Plan of Care Note [code = 98908-2] Goal Plan of Care Note [code = 57273-4] Goal Plan of Care Note [code = 41841-9] Goal Plan of Care Note [code = 63252-2] Goal Plan of Care Note [code = 06830-8] Goal Plan of Care Note [code = 07097-2] Goal Plan of Care Note [code = 12084-5] Goal Plan of Care Note [code = 01042-0] Goal Plan of Care Note [code = 60377-2] Goal Plan of Care Note [code = 00944-7] Goal Plan of Care Note [code = 57657-6] Goal Plan of Care Note [code = 54908-5] Goal Plan of Care Note [code = 63435-7] Goal Plan of Care Note [code = 16479-2] Goal Plan of Care Note [code = 16596-1] Goal Plan of Care Note [code = 91720-1] Goal Plan of Care Note [code = 15866-7] Goal Plan of Care Note [code = 26613-8] Goal Plan of Care Note [code = 69134-9] Goal Plan of Care Note [code = 69855-9] Goal Plan of Care Note [code = 34566-2] Goal Plan of Care Note [code = 99707-9] Goal Plan of Care Note [code = 09370-0] Goal Plan of Care Note [code = 96836-5] Goal Plan of Care Note [code = 56162-3] Goal Plan of Care Note [code = 84859-3] Goal Plan of Care Note [code = 67861-0] Goal Plan of Care Note [code = 95986-5] Goal Plan of Care Note [code = 84748-6] Goal Plan of Care Note [code = 59024-5] Goal Plan of Care Note [code = 64258-9] Goal Plan of Care Note [code = 79407-5] Goal Plan of Care Note [code = 11215-0] Goal Plan of Care Note [code = 76887-2] Goal Plan of Care Note [code = 93716-6] Goal Plan of Care Note [code = 20536-5] Goal Plan of Care Note [code = 79449-7] Goal Plan of Care Note [code = 77145-6] Goal Plan of Care Note [code = 86143-7] Goal Plan of Care Note [code = 51213-6] Goal Plan of Care Note [code = 67990-0] Goal Plan of Care Note [code = 96739-1] Goal Plan of Care Note [code = 14908-8] Goal Plan of Care Note [code = 24749-6] Goal Plan of Care Note [code = 99193-0] Goal Plan of Care Note [code = 42575-3] Goal Plan of Care Note [code = 14354-3] Goal Plan of Care Note [code = 25253-9] Goal Plan of Care Note [code = 00930-7] Goal Plan of Care Note [code = 63583-5] Goal Plan of Care Note [code = 29748-7] Goal Plan of Care Note [code = 82065-5] Goal Plan of Care Note [code = 88168-8] Goal Plan of Care Note [code = 39380-9] Goal Plan of Care Note [code = 02297-4] Goal Plan of Care Note [code = 40384-6] Goal Plan of Care Note [code = 52663-8] Goal Plan of Care Note [code = 34158-5] Goal Plan of Care Note [code = 16267-3] Goal Plan of Care Note [code = 78821-0] Goal Plan of Care Note [code = 58578-4] Goal Plan of Care Note [code = 55562-6] Goal Plan of Care Note [code = 73978-1] Goal Plan of Care Note [code = 04793-3] Goal Plan of Care Note [code = 63910-6] Goal Plan of Care Note [code = 10764-1] Goal Plan of Care Note [code = 54416-0] Goal Plan of Care Note [code = 02560-9] Goal Plan of Care Note [code = 73573-9] Goal Plan of Care Note [code = 61252-0] Goal Plan of Care Note [code = 95590-7] Goal Plan of Care Note [code = 04220-6] Goal Plan of Care Note [code = 10404-6] Goal Plan of Care Note [code = 19378-3] Goal Plan of Care Note [code = 99823-5] Goal Plan of Care Note [code = 27043-8] Goal Plan of Care Note [code = 19745-9] Goal Plan of Care Note [code = 13874-3] Goal Plan of Care Note [code = 48645-9] Goal Plan of Care Note [code = 83282-3] Goal Plan of Care Note [code = 85988-5] Goal Plan of Care Note [code = 52750-7] Goal Plan of Care Note [code = 73454-6] Goal Plan of Care Note [code = 18442-8] Goal Plan of Care Note [code = 37214-7] Goal Plan of Care Note [code = 99998-7] Goal Plan of Care Note [code = 08811-5] Goal Plan of Care Note [code = 84062-1] Goal Plan of Care Note [code = 12286-0] Goal Plan of Care Note [code = 04255-7] Goal Plan of Care Note [code = 01772-2] Goal Plan of Care Note [code = 90429-7] Goal Plan of Care Note [code = 85482-1] Goal Plan of Care Note [code = 80393-5] Goal Plan of Care Note [code = 45093-2] Goal Plan of Care Note [code = 94327-8] Goal Plan of Care Note [code = 63209-7] Goal Plan of Care Note [code = 14520-3] Goal Plan of Care Note [code = 07404-7] Goal Plan of Care Note [code = 27199-5] Goal Plan of Care Note [code = 14350-4] Goal Plan of Care Note [code = 94506-3] Goal Plan of Care Note [code = 01768-1] Goal Plan of Care Note [code = 34071-5] Goal Plan of Care Note [code = 13391-9] Goal Plan of Care Note [code = 72608-1] Goal Plan of Care Note [code = 19422-6] Goal Plan of Care Note [code = 18114-0] Goal Plan of Care Note [code = 28774-7] Goal Plan of Care Note [code = 25708-4] Goal Plan of Care Note [code = 41048-6] Goal Plan of Care Note [code = 32384-3] Goal Plan of Care Note [code = 02538-4] Encounters Start End Encounter Admission Attending Care Care Encounter Source Date/Time Date/Time Type Type Clinicians Facility Department ID 2022-10-04 [facility] 1.2.840.1 [id number] Methodi 00:00:[address] 3.430.2.7 Hospit a .3.911867 l .8 2022-10-03 [facility] [id number] [facility] 00:[facility]:00 Encounter [facility] 2022-10-03 [facility] [id number] [facility] 00:00:00 Encounter [facility] 2022-04-01 Outpatient 3 [id number] E[facility] REF [id number] [facility] 15:21:07 [facility] [place] 2022-03-31 Outpatient 3 [id number] ENC[facility] REF [id number] [facility] 14:48:02 [facility] [place] 2022-03-25 Outpatient 3 [id number] ENCPL REF [id number] [facility] 10:48:24 [facility] [place] 2021-02-05 Outpatient BHARAT, [facility] [id number] [facility] 05:27:44 IRMA 2021-02-04 Outpatient ALAM, [facility] [id number] [facility] 23:01:57 SYLVAIN 2022-12-02 2022-12-02 Outpatient SFA SFA [id number] 023 [place] 10:27:40 10:27:40 0802 [facility] [place] 2022-12-01 2022-12-01 Outpatient SFA SFA [id number] 023 [place] 16:30:55 16:30:55 0801 F [place] 2022-11-23 2022-11-23 Outpatient SFA SFA [id number] 023 [place] 14:32:37 14:32:37 0724 [facility] 2022-10-15 2022-10-15 Orders Doctor DECKER 1.2.840.114 [id number] [facility] 00:00:00 00:00:00 Only Unassigned, RONNY 350.1.13.10 ity of [place] [facility] 4.2.7.2.[id number] [facility] [address] 2022-10-13 2022-10-13 Outpatient SFA SFA [id number] 023 [place] 14:26:27 14:26:27 0613 [facility] 2022-10-09 2022-10-09 Transition RICHIE [place] 1.2.840.114 10 [id number] Univers 00:00:00 00:00:00 of Care Bambi MANCINI 350.1.13.10 i ty carmen ALY 4.2.7.2.686 Jaquelin corey [id number] [address] 2022-10-03 2022-10-08 Outpatient U CAMILLE LANDEROS [facility] SV 1 [id number] Univers 23:30:00 12:30:00 CAMILLE LANDEROS [facility] 2022-09-22 2022-09-22 Outpatient SFA SFA [id number] 023 [place] 13:46:32 13:46:32 0523 [facility] 2022-09-10 2022-09-10 Outpatient SFA SFA [id number] 023 [place] 08:13:34 08:13:34 0511 [facility] 2022-09-08 2022-09-08 Outpatient SFA SFA [id number] 023 [place] 17:33:06 17:33:06 0509 [facility] 2022-08-19 2022-08-19 Outpatient SFA SFA [id number] 023 [place] 10:53:44 10:53:44 0419 [facility] 2022-08-18 2022-08-18 Outpatient Rayne DENNISON [facility] [id number] Univers 00:00:00 00:00:00 HO [facility] 2022-04-21 2022-07-23 Outpatient RECERTIFIC MICHAEL ENCCLR ENCCLR [id number] ENCCLR 00:00:00 00:00:00 JACINTO WEBBER 2022-07-20 2022-07-20 Outpatient SFA SFA [id number] [place] 11:34:05 11:34:05 0320 [facility] 2022-06-29 2022-06-29 Outpatient SFA SFA [id number] [place] 11:09:32 11:09:32 0227 [facility] 2022-06-09 2022-06-09 Outpatient R KHOA [facility] [id number] [facility] 13:30:00 13:30:00 JOSELUIS [facility] 2022-05-28 2022-05-28 Outpatient SFA SFA [id number] [place] 09:36:19 09:36:19 0126 [facility] 2022-05-28 2022-05-28 Jasmyn DECKER 1.2.840.114 [id number] Univers 00:00:00 00:00:00 Only Unassigned, RONNY 350.1.13.10 ity of [place] [facility] 4.2.7.2.686 Tony as [id number] [address] 2022-04-23 2022-04-23 Outpatient [facility] [id number] 022 E[place]ch 11:12:51 11:12:51 1222 F Martínez 2022-04-23 2022-04-23 Outpatient [id number]- [id number] [id number] 00:00:00 00:00:00 Visit 0l70-124b a59-219c-6 -8818-496 [id number] 7867120a3 6681f3 2022-04-22 2022-04-22 Outpatient [facility] [id number] 022 [place] 11:56:37 11:56:37 1221 F Martínez 2022-04-21 2022-04-21 Outpatient KEKE COVARRUBIASBERNARDINO ENCCLR ENCCLR [id number] ENCCLR 00:00:00 00:00:00 ADMISSION Y, GERRI 2022-04-20 2022-04-20 Outpatient [facility] [id number] 022 [place] 13:44:26 13:44:26 1219 F Martínez 2022-04-20 2022-04-20 Outpatient [id number]- [id number] [id number]-5 00:00:00 00:00:00 Visit 868d-4ba4 68d-4ba4-8 -857d-890 57d-8900b2 5m289054a 42989k 2022-04-07 2022-04-17 Inpatient 3 [facility] ENCPL OT 5814 Encompa 18:25:00 16:40:00 hez, 1206 ss [facility] Tianna ndiaye 2022-04-15 2022-04-15 Outpatient Provider, SANDIE WILSON VL552 47724 AMINA 03:25:00 03:25:00 Undefined 02 [facility] clement [facility] 2022-03-17 2022-03-17 Outpatient SFA [id number] 022 [place] 09:09:19 09:09:19 1115 F [place] 2022-03-17 2022-03-17 Outpatient 58oq000t- [id number] ht784p-b 00:00:00 00:00:00 Visit m751-9836 106-4636-b -z8wq-145 5be-547ae2 cl131oob4 86dad8 2022-03-04 2022-03-04 Outpatient SFA SFA [id number] 022 [place] 13:56:07 13:56:07 1102 F Martínez 2022-03-04 2022-03-04 Outpatient [id number]- [id number] 7246be-9 00:00:00 00:00:00 Visit 9529-42f7 529-42f7-a -km07-qi8 b98-wh316e 63z6sw2b9 5cb7c5 2022-02-24 2022-02-24 [facility] [id number] 00:00:00 00:00:00 [facility] 2022-02-24 2022-02-24 [facility] [id number] 00:00:00 00:00:00 [facility] 2022-02-17 2022-02-17 Outpatient SFA [facility] [id number] 022 Enoch 14:09:24 14:09:24 1018 F Martínez 2022-02-17 2022-02-17 Outpatient 30zx063t- [id number] ss846h-s 00:00:00 00:00:00 Visit f10y-00x4 39e-47c5-b -z0d7-3qj 0y4-4gkg0i [id number] 805940 1925-10-04 2022-02-03 Outpatient SFA SFA 14567-2 022 [place] 13:41:10 13:41:10 1004 F Martínez 2022-02-03 2022-02-03 Outpatient [id number] [id number] 00:00:00 00:00:00 Visit 4378-45d4 378-45d4-b -xa9n-085 q8n-6684m1 0y57764wm 0427fc 2021-12-23 2021-12-23 Telephone [facility] 1.2.081.200 [id number] Univers 00:00:00 00:00:00 [place] [address].1.13.10 it y of [place] 4.2.7.2.686 Tony as CAR?BLEA [id number] [facility] 220 [facility] OFFICE [facility] 2021-12-04 2021-12-04 Outpatient [id number]- [id number] 106l29-0 00:00:00 00:00:00 Visit 34j0-1z31 9s9-0p09-7 -91r7-e5x 0g9-e2vgl1 sj5528k47 255c45 2021-12-02 2021-12-02 [facility] [id number] Univers 16:00:00 16:00:00 [facility] 2021-12-02 2021-12-02 Ref[facility] Gen - [facility] 1.2.840.1 14 [id number] Univers 15:15:00 15:16:31 [facility] 350.1.13.10 ity of [place] 4.2.7.2.686 Tony as CAR?BLEA [id number] [address] OFFICE [facility] 2021-12-02 2021-12-02 [facility] [id number] Univers 14:30:00 14:57:05 [facility] 2021-12-02 2021-12-02 Office [facility] 1.2.840.114 [id number] Univers 14:30:00 14:57:05 Visit [facility] 350.1.13.10 it y of [place] 4.2.7.2.686 Tony as CAR?BLEA [id number] [address] OFFICE [facility] 2021-12-02 2021-12-02 Outpatient [id number]- [id number] [id number] 00:00:00 00:00:00 Visit 6xq2-6469 db2-4873-a -a1o0-759 4x6-8120e2 3o16d53f6 1f79f2 2021-11-26 2021-11-26 [facility] [id number] Univers 14:00:00 14:00:00 [facility] 2021-10-21 2021-10-21 Outpatient R FERNANDEZ, [facility] [id number] Univers 14:30:00 14:30:00 [facility] ity [facility] 2021-07-29 2021-07-29 Telephone [facility] 1.2.826.564 [id number] Univers 00:00:00 00:00:00 [facility] 350.1.13.10 it y of [place] 4.2.7.2.686 Tony as CAR?BLEA [id number] [address] MEDICAL OFFICE BUILDING 2021-07-15 2021-07-15 Outpatient [facility] [id number] Univers 09:30:00 10:12:40 [facility] ity [facility] 2021-07-15 2021-07-15 Office [facility] 1.2.840.114 [id number] Univers 09:30:00 10:12:40 Visit [facility] 350.1.13.10 it y of [place] 4.2.7.2.686 Tony as CAR?BLEA [id number] [address] MEDICAL OFFICE BUILDING 2021-03-06 2021-03-06 Hospital Radiology [facility] 1.2.840.114 [id number] Univers 12:24:35 23:59:00 Encounter [place] 350.1.13.10 ity [place]2.7.2.[place] [id number] [address] 2021-03-06 2021-03-06 Hospital Radiology [facility] 1.2.840.114 [id number] Univers 12:23:40 12:23:40 Encounter [place] 350.1.13.10 [facility] [place] [id number] [address] 2021-03-06 2021-03-06 Outpatient R RADIOLOGY [facility] [id number] Univers 12:23:40 12:23:40 ity of [facility] 2021-03-06 2021-03-06 Outpatient R RADIOLOGY [facility] [id number] Univers 12:23:40 12:23:40 ity of [facility] 2021-02-272021-02-27 Outpatient R RADIOLOGY [facility] [id number] Univers 00:00:00 [facility]00[facility]-02-27 2021-02-27 Outpatient R RADIOLOGY [facility] [id number] Univers 00:00:00 00:00:00 [facility] 2021-02-13 2021-02-[address] [facility] [id number] [facility] 00:00:00 00:00:00 ion [facility] 2021-02-03 2021-02-03 Orders Doctor BRIANNE 1.2.840.114 [id number] Univers 00:00:00 00:00:00 Only Unassigned, RONNY 350.1.13.10 [facility] 4.2.7.2.686 Tony as [id number] [address] 2020-11-22 2020-11-22 Outpatient [facility] [id number] Univers 13:00:00 13:00:00 SAM [facility] 2020-10-08 2020-10-08 Telephone [facility] 1.2.840.114 [id number] 00:00:00 00:00:00 Sam Doherty 350.1.13.10 [place] 4.2.7.2.686 Professio [id number] [facility] 220 [facility] 2020-10-07 2020-10-07 Orders Doctor BRIANNE 1.2.840.114 [id number] 00:00:00 00:00:00 Only UnassignedRONNY 350.1.13.10 [facility] 4.2.7.2.686 [id number] 009 2020-10-04 2020-10-04 Outpatient [facility] [id number] Univers 14:00:00 14:00:00 SAM [facility] 2020-09-19 2020-09-19 Outpatient Rayne GARCIA [facility] [id number] Univers 11:00:00 11:00:00 DEAN stewart o f [facility] 2020-09-10 2020-09-10 Outpatient Rayne GARCIA [facility] [id number] Univers 10:00:00 10:00:00 DEAN sheffield [facility] 2020-08-20 2020-08-20 Office [facility] 1.2.840.114 [id number] 13:15:09 13:42:21 Visit Dean Doherty 350.1.13.10 [place] 4.2.7.2.686 Tania [id number] [facility] 2020-08-20 2020-08-20 Outpatient Rayne [facility] [id number] Univers 13:20:00 13:20:00 DEAN sheffield [facility] 2019-12-14 2019-12-14 Outpatient [facility]H [facility] [id number] [facility] 00:00:00 00:00:00 2019-11-14 2019-11-14 Outpatient EL GIPSON, [facility] [id number] [facility] 00:00:00 00:00:00 HUNTER 2019-11-14 2019-11-14 Outpatient SLEH [facility] [id number] [facility] 00:00:00 00:00:00 2019-11-14 2019-11-14 Outpatient EL SLEH [facility] [id number] [facility] 00:00:00 00:00:00 2019-10-31 2019-10-31 Outpatient SLEH [facility] [id number] [facility] 00:00:00 00:00:00 2019-10-31 2019-10-31 Outpatient SLEH [facility] [id number] [facility] 00:00:00 00:00:00 2019-10-17 2019-10-17 Outpatient SLEH [facility] [id number] [facility] 00:00:00 00:00:00 2019-10-17 2019-10-17 Outpatient EL [facility] [id number] [facility] 00:00:00 00:00:00 2019-07-13 2019-07-13 Outpatient [facility]H [facility] [id number] [facility]H 00:00:00 00:00:00 [id number] 2019-06-15 2019-06-15 Outpatient SLEH [facility] [id number] 2-2 [facility] 00:00:00 00:00:00 [id number] Results Test Description Test Time Test Comments Results Result Comments Source HEMOGLOBIN A1c 2022-09-11 05:14:56 Test Item Value Reference Range Interpretation Comme nts HEMOGLOBIN A1c (test code = 5.9 % 4.2-5.6 H [employer] 31903) GUIDELINES FOR HGB A1C: PREDIABETES/INC REASED RISK [...] ATED, ALL TESTING PERFORMED AT [facility], [id number] [place] [address] NICA DIRECTOR: Chuckie NAVA MYKE NUMBER [id number] CAP ACCREDITATION N O. [id number] COMPREHENSIVE METABOLIC [id number] 05:50:10 Test Item Value Reference Range Interpretation Comments GLUCOSE (test code = 199 MG/DL 70-99 H 2216) BUN (test code = 53 MG/DL 6-20 H 2207) CREATININE (test 9.05 MG/DL 0.80-1.40 H code = 2214) eGFR (2020 CKD-EPI) 6 ML/MIN/1.73 >60 L (test code = 05112) CALC BUN/CREAT (test 6 RATIO 6-28 code = 2235) SODIUM (test code = 135 MEQ/L 121-805 7841) POTASSIUM (test code 4.3 MEQ/L 3.5-5.4 = [...] and clinic al consultation. S ee URL: [email or web address]. UNLE SS OTHERWISE INDIC ATED, ALL TESTING PER FORMED AT [facility] [employer] [facility], [address] [address] [employer] DIRECTOR: ELIZABETH MILLER M.D. C MYKE NUMBER [id number] CAP ACCREDITATION N O. [id number] TSH, THIRD [id number] 06:11:47 Test Item Value Reference Range Interpretation Comments TSH, THIRD >100.000 0.400-4.100 H CPL has GENERATION (test UIU/ML important p athology code = 2821) staff changes effective 07/01. New patholo gy staff will prov lisa uninterrupted, excellent patie nt care and clinic al consultation. S ee URL: [email or web address]. UNLE SS OTHERWISE INDIC ATED, ALL TESTING PER FORMED AT [facility] [employer] [facility], [address] [address] [facility] [employer] DIRECTOR: LATOYA MCCALL M.D. CLIA NUMBER [id number] CAP ACCREDITATION N O. [id number] LIPID [id number] 03:11:34 Test Item Value Reference Range Interpretation [...] MOREINFORMATION , SEE CLIENT ANNOUNCE MENT AT [email or web address] RISK RATIO LDL/HDL 1.58 RATIO <3.55 (test code = 2238) TSH, THIRD [id number] 06:32:46 Test Item Value Reference Range Interpretation Comments TSH, THIRD GENERATION (test >100.000 UIU/ML 0.400-4.100 H code = 2821) PSA, [id number] 06:32:46 Test Item Value Reference Range Interpretation Comments PSA, TOTAL 0.57 NG/ML See_Comment NOTE: Methodol ogy is Ezio (test code = Radhika Electroch emiluminescence 2606) Immunoassay tra ceable to WHO reference stand rea 96/760. UNLESS OTHERWIS E INDICATED, ALL TESTING PERFORM ED ATCLINICAL PATHOLOGY [facility], [facility]. [address] [place] [address] LABORATORY DIRE CTOR: LATOYA MCCALL M.D. CLIA NUMBER [id number] [place]. [id number] [A utomated message] The sy stem which generated this result transmitted ref erence range: <=4.00. The ref erence range was not used to int erpret this result as ryne l/abnormal. COMPREHENSIVE METABOLIC [id number] 04:57:27 Test Item Value Reference Range Interpretation Comments GLUCOSE (test code = 204 MG/DL 70-99 H 2216) BUN (test code = 17 MG/DL 6-20 2207) CREATININE (test 5.58 MG/DL 0.80-1.40 H code = 2214) eGFR (2020 CKD-EPI) 11 ML/MIN/1.73 >60 L (test code = 24553) CALC BUN/CREAT (test 3 RATIO 6-28 L code = 223) SODIUM (test code = 143 MEQ/L 024-057 8895) POTASSIUM (test code 3.8 MEQ/L 3.5-5.4 = [...] message] (test code = 2206) The syste [place] [facility] which generated this result transmit kailey reference range : <=1.2. The refe rence range was not u sed to interpret th is result as normal/abnormal . ALKALINE PHOSPHATASE 72 U/L 40-123 (test code = 2203) AST (test code = 18 U/L 9-50 2217) ALT (test code = 15 U/L 5-50 2218) HEMOGLOBIN [id number] 03:24:27 Test Item Value Reference Range Interpretation Comments HEMOGLOBIN A1c (test code = 28386) 5.8 % 4.2-5.6 H CBC W/AUTO DIFF WITH [id number] 03:19:43 Test Item Value Reference Range Interpretation [...] RBCS 0.00 K/UL 0.00-0.11 (test code = 95536) CBC W/AUTO [id number] 00:00:00 Test Item Value Reference Range Interpretation [...] NUCLEATED RBCS (test code = 0.00 K/UL 68165) CBC W/AUTO [id number] 00:00:00 Test Item Value Reference Range Interpretation [...] NUCLEATED RBCS (test code = 0.00 K/UL 96879) CBC W/AUTO [id number] 00:00:00 Test Item Value Reference Range Interpretation [...] NUCLEATED RBCS (test code = 0.00 K/UL 18279) HEMOGLOBIN [id number] 00:00:00 Test Item Value Reference Range Interpretation Comments HEMOGLOBIN A1c (test code = 09444) 5.8 % HEMOGLOBIN [id number] 00:00:00 Test Item Value Reference Range Interpretation Comments HEMOGLOBIN A1c (test code = 02886) 5.8 % HEMOGLOBIN [id number] 00:00:00 Test Item Value Reference Range Interpretation Comments HEMOGLOBIN A1c (test code = 04141) 5.8 % COMPREHENSIVE METABOLIC [id number] 00:00:00 Test Item Value Reference Range Interpretation Comments GLUCOSE (test code = 2217) 204 MG/DL BUN (test code = 2208) 17 MG/DL CREATININE (test code = 2214) 5.58 MG/DL eGFR (2020 CKD-EPI) (test code 11 ML/MIN/1.73 = 96131) CALC BUN/CREAT (test code = 3 RATIO [...] code = 2219) 15 U/L COMPREHENSIVE METABOLIC [id number] 00:00:00 Test Item Value Reference Range Interpretation Comments GLUCOSE (test code = 2217) 204 MG/DL BUN (test code = 2208) 17 MG/DL CREATININE (test code = 2214) 5.58 MG/DL eGFR (2020 CKD-EPI) (test code 11 ML/MIN/1.73 = 40903) CALC BUN/CREAT (test code = 3 RATIO [...] code = 2219) 15 U/L TSH, THIRD [id number] 00:00:00 Test Item Value Reference Range Interpretation Comments TSH, THIRD GENERATION (test >100.000 UIU/ML code = 2821) TSH, THIRD [id number] 00:00:00 Test Item Value Reference Range Interpretation Comments TSH, THIRD GENERATION (test >100.000 UIU/ML code = 2821) TSH, THIRD [id number] 00:00:00 Test Item Value Reference Range Interpretation Comments TSH, THIRD GENERATION (test >100.000 UIU/ML code = 2821) PSA, [id number] 00:00:00 Test Item Value Reference Range Interpretation Comments PSA, TOTAL (test code = 2606) 0.57 NG/ML PSA, [id number] 00:00:00 Test Item Value Reference Range Interpretation Comments PSA, TOTAL (test code = 2606) 0.57 NG/ML PSA, [id number] 00:00:00 Test Item Value Reference Range Interpretation Comments PSA, TOTAL (test code = 2606) 0.57 NG/ML - CT ABD PELVIS W/O [id number] 17:19:00 [facility] 1965 Sex: M Name: VIKA ALVAREZMEHRDAD [facility] : 1965 Age/S: 56 / M [address] [place] Unit #: [id number] Loc: [place] [address] Phys: Jacinto Simpson MD Acct: [id number] Dis Date: Status:REG REF PHONE #: [phone] Exam Date: 04/16/2022 1703 FAX #: Reason: RESP FAILURE EXAMS: CPT: [id number] CT ABD PELVIS W/O CONT 69329 CT abdomen and pelvis without contrast: HISTORY: [...] bibasilar subsegmental atelectasis. The heart is mildly enlarged.No pericardial effusion. No pleural effusions. The liver is homogeneous, free of focal masses and dilated intrahepatic ducts. The gallbladder is unremarkable. The spleen is normal in size and contour.The stomach and duodenum appear unremarkable. The pancreas [...] 1 Signed Report (CONTINUED) Name: MEHRDAD RAMIREZ [facility] : 1965 Age/S: 56 / M [address] [facility] [place] Unit #: [id number] Loc: [place] [address] Phys: Jacinto Simpson MD Acct: [id number] Dis Date: Status: REG REF PHONE #: [phone] Exam Date: 04/16/2022 1708 FAX #: Reason: RESP FAILURE EXAMS: CPT: [id number] CTABD PELVIS W/O CONT 90964 (Continued) evidence of ascites. Abdominal wall is intact. No significantbony lesions. IMPRESSION: 1. No acute finding is seen in the abdomen the pelvis. 2. Left colonic diverticulosis. 3. Normal appendix seen. 4. Multiple small right renal cysts are present. These requireno additional follow-up. at 1719 Reported and signed by: José Luis Escobar M.D. CC: Jacinto Pearson MD Technologist:Moreno Alvarez, RT(R) CTDI: DLP: Trnscb Date/Time: 04/16/2022 (1719) CristelaRMarvinNB16 Orig Print D/T: S: 04/16/2022 (3612) PAGE 2 Signed ReportCBC W/AUTO [id number] 05:14:00 Test Item Value Reference Range Interpretation [...] NT WITH AUTO DIFFERENTI AL. BASIC METABOLIC [id number] 03:59:00 Test Item Value Reference Range Interpretation [...] L = CA) CBC W/AUTO DIFF WITH [id number] 09:42:23 Test Item Value Reference Range Interpretation [...] RBCS 0.00 K/UL 0.00-0.11 (test code = 94764) HEMOGLOBIN [id number] 09:27:39 Test Item Value Reference Range Interpretation Comments HEMOGLOBIN A1c (test code = 92732) 6.2 % 4.2-5.6 H TSH, THIRD [id number] 06:43:39 Test Item Value Reference Range Interpretation Comments TSH, THIRD GENERATION (test 82.000 UIU/ML 0.400-4.100 H code = 2821) HIV 1/2 4TH GEN, RFLX [id number] 05:21:13 Test Item Value Reference Range Interpretation Comments HIV 1/2 4TH GEN, RFLX CONF (test NON-REACTIVE NON-REACTIVE code = 3514) HEPATITIS PANEL, [id number] 05:21:13 Test Item Value Reference Range Interpretation Comments HEPATITIS A IgM (test NON-REACTIVE NON-REACTIVE code = 50857) HEPATITIS B CORE IgM NON-REACTIVE NON-REACTIVE (test code = 4644) HEPATITIS B SURF AG NON-REACTIVE NON-REACTIVE (test code = 2739) HEPATITIS C ANTIBODY NON-REACTIVE NON-REACTIVE (test code = 4675) INTERPRETATION (NOTE) Hepatitis A HEPATITIS A: (test serology shows no code = 2552) evidence of acu te hepatitis A. INTERPRETATION (NOTE) Hepatitis B HEPATITIS B: (test serology shows no code = 40618) evidence of ac [place] hepatitis B and no indication of exposure to hepatitis B vir us in the previous si xto eight months. INTERPRETATION (NOTE) Hepatitis C HEPATITIS C: (test serology shows no code = 54905) evidence of ex posure to hepatitisC v irus at this time. I t can take up to 12 m onths after exposure tothe hepatitis C vir us for antibodies to become detectab le in the blood in ce rtain patients. UNLES S OTHERWISE INDIC ATED, ALL TESTING PERFORMED [facility] [address] [place] [address] [facility] DIRECTOR: LATOYA MCCALL M.D. CLIA NUMBER [id number] [place] [id number] LIPID [id number] 03:30:59 Test Item Value Reference Range Interpretation [...] MOREINFORMATION , SEE CLIENT ANNOUNCE MENT AT [email or web address] CalcLDL-C RISK RATIO LDL/HDL (NOTE) RATIO <3.55 UNABLE T O CALCULATE (test code = 2238) COMPREHENSIVE METABOLIC [id number] 03:30:59 Test Item Value Reference Range Interpretation Comments GLUCOSE (test code = 117 MG/DL 70-99 H 2216) BUN (test code = 54 MG/DL 6-20 H 2207) CREATININE (test 11.27 MG/DL 0.80-1.40 H code = 2214) eGFR (2020 CKD-EPI) 5 ML/MIN/1.73 >60 L (test code = 94530) CALC BUN/CREAT (test 5 RATIO 6-28 L code = 2235) SODIUM (test code = 139 MEQ/L 801-998 3618) POTASSIUM (test code 4.2 MEQ/L 3.5-5.4 = [...] = 8 U/L 5-50 2218) CBC W/AUTO [id number] 00:00:00 Test Item Value Reference Range Interpretation [...] NUCLEATED RBCS (test code = 0.00 K/UL 69819) CBC W/AUTO [id number] 00:00:00 Test Item Value Reference Range Interpretation [...] NUCLEATED RBCS (test code = 0.00 K/UL 84277) CBC W/AUTO [id number] 00:00:00 Test Item Value Reference Range Interpretation [...] NUCLEATED RBCS (test code = 0.00 K/UL 42259) HEMOGLOBIN [id number] 00:00:00 Test Item Value Reference Range Interpretation Comments HEMOGLOBIN A1c (test code = 97387) 6.2 % HEMOGLOBIN [id number] 00:00:00 Test Item Value Reference Range Interpretation Comments HEMOGLOBIN A1c (test code = 75100) 6.2 % HEMOGLOBIN [id number] 00:00:00 Test Item Value Reference Range Interpretation Comments HEMOGLOBIN A1c (test code = 95805) 6.2 % LIPID [id number] 00:00:00 Test Item Value Reference Range Interpretation Comments CHOLESTEROL (test code = 2210) 196 MG/DL TRIGLYCERIDES (test code = 2232) 486 MG/DL HDL CHOLESTEROL (test code = 44 MG/DL 2220) CALC LDL CHOL (test code = 2237) (NOTE) MG/DL RISK RATIO LDL/HDL (test code = (NOTE) RATIO 2238) LIPID [id number] 00:00:00 Test Item Value Reference Range Interpretation Comments CHOLESTEROL (test code = 2210) 196 MG/DL TRIGLYCERIDES (test code = 2232) 486 MG/DL HDL CHOLESTEROL (test code = 44 MG/DL 2220) CALC LDL CHOL (test code = 2237) (NOTE) MG/DL RISK RATIO LDL/HDL (test code = (NOTE) RATIO 2238) COMPREHENSIVE METABOLIC [id number] 00:00:00 Test Item Value Reference Range Interpretation Comments GLUCOSE (test code = 2217) 117 MG/DL BUN (test code = 2208) 54 MG/DL CREATININE (test code = 2214) 11.27 MG/DL eGFR (2020 CKD-EPI) (test code 5 ML/MIN/1.73 = 00930) CALC BUN/CREAT (test code = 5 RATIO [...] code = 2219) 8 U/L COMPREHENSIVE METABOLIC [id number] 00:00:00 Test Item Value Reference Range Interpretation Comments GLUCOSE (test code = 2217) 117 MG/DL BUN (test code = 2208) 54 MG/DL CREATININE (test code = 2214) 11.27 MG/DL eGFR (2020 CKD-EPI) (test code 5 ML/MIN/1.73 = 44298) CALC BUN/CREAT (test code = 5 RATIO [...] ALT (test code = 2219) 8 U/L [id number] 00:00:00 Test Item Value Reference Range Interpretation Comments TSH, THIRD GENERATION (test 82.000 UIU/ML code = 2821) [id number] 00:00:00 Test Item Value Reference Range Interpretation Comments TSH, THIRD GENERATION (test 82.000 UIU/ML code = 2821) [id number] 00:00:00 Test Item Value Reference Range Interpretation Comments TSH, THIRD GENERATION (test 82.000 UIU/ML code = 2821) HIV AB/AG COMBO RFLX [id number] 00:00:00 Test Item Value Reference Range Interpretation Comments HIV 1/2 4TH GEN, RFLX CONF (test NON-REACTIVE code = 3514) HIV AB/AG COMBO RFLX [id number] 00:00:00 Test Item Value Reference Range Interpretation Comments HIV 1/2 4TH GEN, RFLX CONF (test NON-REACTIVE code = 3514) ACUTE HEPATITIS [id number] 00:00:00 Test Item Value Reference Range Interpretation Comments HEPATITIS A IgM (test code = NON-REACTIVE 87405) HEPATITIS B CORE IgM (test code NON-REACTIVE = 4644) HEPATITIS B SURF AG (test code = NON-REACTIVE 2739) HEPATITIS C ANTIBODY (test code NON-REACTIVE = 4675) INTERPRETATION HEPATITIS A: (NOTE) (test code = 2552) INTERPRETATION HEPATITIS B: (NOTE) (test code = 08202) INTERPRETATION HEPATITIS C: (NOTE) (test code = 35649) ACUTE HEPATITIS [id number] 00:00:00 Test Item Value Reference Range Interpretation Comments HEPATITIS A IgM (test code = NON-REACTIVE 55388) HEPATITIS B CORE IgM (test code NON-REACTIVE = 4644) HEPATITIS B SURF AG (test code = NON-REACTIVE 2739) HEPATITIS C ANTIBODY (test code NON-REACTIVE = 4675) INTERPRETATION HEPATITIS A: (NOTE) (test code = 2552) INTERPRETATION HEPATITIS B: (NOTE) (test code = 97925) INTERPRETATION HEPATITIS C: (NOTE) (test code = 40969) CBC W/AUTO [id number] 00:00:00 Test Item Value Reference Range Interpretation [...] NUCLEATED RBCS (test code = 0.00 K/UL 89075) CBC W/AUTO [id number] 00:00:00 Test Item Value Reference Range Interpretation [...] NUCLEATED RBCS (test code = 0.00 K/UL 72599) CBC W/AUTO [id number] 00:00:00 Test Item Value Reference Range Interpretation [...] NUCLEATED RBCS (test code = 0.00 K/UL 11290) HEMOGLOBIN [id number] 00:00:00 Test Item Value Reference Range Interpretation Comments HEMOGLOBIN A1c (test code = 95427) 6.2 % HEMOGLOBIN [id number] 00:00:00 Test Item Value Reference Range Interpretation Comments HEMOGLOBIN A1c (test code = 30492) 6.2 % HEMOGLOBIN [id number] 00:00:00 Test Item Value Reference Range Interpretation Comments HEMOGLOBIN A1c (test code = 87351) 6.2 % LIPID [id number] 00:00:00 Test Item Value Reference Range Interpretation Comments CHOLESTEROL (test code = 2210) 196 MG/DL TRIGLYCERIDES (test code = 2232) 486 MG/DL HDL CHOLESTEROL (test code = 44 MG/DL 2220) CALC LDL CHOL (test code = 2237) (NOTE) MG/DL RISK RATIO LDL/HDL (test code = (NOTE) RATIO 2238) LIPID [id number] 00:00:00 Test Item Value Reference Range Interpretation Comments CHOLESTEROL (test code = 2210) 196 MG/DL TRIGLYCERIDES (test code = 2232) 486 MG/DL HDL CHOLESTEROL (test code = 44 MG/DL 2220) CALC LDL CHOL (test code = 2237) (NOTE) MG/DL RISK RATIO LDL/HDL (test code = (NOTE) RATIO 2238) COMPREHENSIVE METABOLIC [id number] 00:00:00 Test Item Value Reference Range Interpretation Comments GLUCOSE (test code = 2217) 117 MG/DL BUN (test code = 2208) 54 MG/DL CREATININE (test code = 2214) 11.27 MG/DL eGFR (2020 CKD-EPI) (test code 5 ML/MIN/1.73 = 87304) CALC BUN/CREAT (test code = 5 RATIO [...] code = 2219) 8 U/L COMPREHENSIVE METABOLIC [id number] 00:00:00 Test Item Value Reference Range Interpretation Comments GLUCOSE (test code = 2217) 117 MG/DL BUN (test code = 2208) 54 MG/DL CREATININE (test code = 2214) 11.27 MG/DL eGFR (2020 CKD-EPI) (test code 5 ML/MIN/1.73 = 76528) CALC BUN/CREAT (test code = 5 RATIO [...] ALT (test code = 2219) 8 U/L [id number] 00:00:00 Test Item Value Reference Range Interpretation Comments TSH, THIRD GENERATION (test 82.000 UIU/ML code = 2821) [id number] 00:00:00 Test Item Value Reference Range Interpretation Comments TSH, THIRD GENERATION (test 82.000 UIU/ML code = 2821) [id number] 00:00:00 Test Item Value Reference Range Interpretation Comments TSH, THIRD GENERATION (test 82.000 UIU/ML code = 2821) HIV AB/AG COMBO RFLX [id number] 00:00:00 Test Item Value Reference Range Interpretation Comments HIV 1/2 4TH GEN, RFLX CONF (test NON-REACTIVE code = 3514) HIV AB/AG COMBO RFLX [id number] 00:00:00 Test Item Value Reference Range Interpretation Comments HIV 1/2 4TH GEN, RFLX CONF (test NON-REACTIVE code = 3514) ACUTE HEPATITIS [id number] 00:00:00 Test Item Value Reference Range Interpretation Comments HEPATITIS A IgM (test code = NON-REACTIVE 07890) HEPATITIS B CORE IgM (test code NON-REACTIVE = 6450) HEPATITIS B SURF AG (test code = NON-REACTIVE 2739) HEPATITIS C ANTIBODY (test code NON-REACTIVE = 4675) INTERPRETATION HEPATITIS A: (NOTE) (test code = 2552) INTERPRETATION HEPATITIS B: (NOTE) (test code = 34799) INTERPRETATION HEPATITIS C: (NOTE) (test code = 89740) ACUTE HEPATITIS [id number] 00:00:00 Test Item Value Reference Range Interpretation Comments HEPATITIS A IgM (test code = NON-REACTIVE 94526) HEPATITIS B CORE IgM (test code NON-REACTIVE = 4644) HEPATITIS B SURF AG (test code = NON-REACTIVE 9) HEPATITIS C ANTIBODY (test code NON-REACTIVE = 4675) INTERPRETATION HEPATITIS A: (NOTE) (test code = 2552) INTERPRETATION HEPATITIS B: (NOTE) (test code = 28605) INTERPRETATION HEPATITIS C: (NOTE) (test code = 52855) CBC W/AUTO [id number] 00:00:00 Test Item Value Reference Range Interpretation [...] NUCLEATED RBCS (test code = 0.00 K/UL 26116) CBC W/AUTO [id number] 00:00:00 Test Item Value Reference Range Interpretation [...] NUCLEATED RBCS (test code = 0.00 K/UL 64545) CBC W/AUTO [id number] 00:00:00 Test Item Value Reference Range Interpretation [...] NUCLEATED RBCS (test code = 0.00 K/UL 40454) CBC W/AUTO [id number] 00:00:00 Test Item Value Reference Range Interpretation [...] NUCLEATED RBCS (test code = 0.00 K/UL 80618) CBC W/AUTO [id number] 00:00:00 Test Item Value Reference Range Interpretation [...] NUCLEATED RBCS (test code = 0.00 K/UL 66470) HEMOGLOBIN [id number] 00:00:00 Test Item Value Reference Range Interpretation Comments HEMOGLOBIN A1c (test code = 93802) 6.2 % HEMOGLOBIN [id number] 00:00:00 Test Item Value Reference Range Interpretation Comments HEMOGLOBIN A1c (test code = 93242) 6.2 % HEMOGLOBIN [id number] 00:00:00 Test Item Value Reference Range Interpretation Comments HEMOGLOBIN A1c (test code = 07804) 6.2 % LIPID [id number] 00:00:00 Test Item Value Reference Range Interpretation Comments CHOLESTEROL (test code = 2210) 196 MG/DL TRIGLYCERIDES (test code = 2232) 486 MG/DL HDL CHOLESTEROL (test code = 44 MG/DL 2220) CALC LDL CHOL (test code = 2237) (NOTE) MG/DL RISK RATIO LDL/HDL (test code = (NOTE) RATIO 2238) LIPID [id number] 00:00:00 Test Item Value Reference Range Interpretation Comments CHOLESTEROL (test code = 2210) 196 MG/DL TRIGLYCERIDES (test code = 2232) 486 MG/DL HDL CHOLESTEROL (test code = 44 MG/DL 2220) CALC LDL CHOL (test code = 2237) (NOTE) MG/DL RISK RATIO LDL/HDL (test code = (NOTE) RATIO 2238) COMPREHENSIVE METABOLIC [id number] 00:00:00 Test Item Value Reference Range Interpretation Comments GLUCOSE (test code = 2217) 117 MG/DL BUN (test code = 2208) 54 MG/DL CREATININE (test code = 2214) 11.27 MG/DL eGFR (2020 CKD-EPI) (test code 5 ML/MIN/1.73 = 28984) CALC BUN/CREAT (test code = 5 RATIO [...] code = 2219) 8 U/L COMPREHENSIVE METABOLIC [id number] 00:00:00 Test Item Value Reference Range Interpretation Comments GLUCOSE (test code = 2217) 117 MG/DL BUN (test code = 2208) 54 MG/DL CREATININE (test code = 2214) 11.27 MG/DL eGFR (2020 CKD-EPI) (test code 5 ML/MIN/1.73 = 80140) CALC BUN/CREAT (test code = 5 RATIO [...] ALT (test code = 2219) 8 U/L [id number] 00:00:00 Test Item Value Reference Range Interpretation Comments TSH, THIRD GENERATION (test 82.000 UIU/ML code = 2821) [id number] 00:00:00 Test Item Value Reference Range Interpretation Comments TSH, THIRD GENERATION (test 82.000 UIU/ML code = 2821) [id number] 00:00:00 Test Item Value Reference Range Interpretation Comments TSH, THIRD GENERATION (test 82.000 UIU/ML code = 2821) HIV AB/AG COMBO RFLX [id number] 00:00:00 Test Item Value Reference Range Interpretation Comments HIV 1/2 4TH GEN, RFLX CONF (test NON-REACTIVE code = 3514) HIV AB/AG COMBO RFLX [id number] 00:00:00 Test Item Value Reference Range Interpretation Comments HIV 1/2 4TH GEN, RFLX CONF (test NON-REACTIVE code = 3514) ACUTE HEPATITIS [id number] 00:00:00 Test Item Value Reference Range Interpretation Comments HEPATITIS A IgM (test code = NON-REACTIVE 05569) HEPATITIS B CORE IgM (test code NON-REACTIVE = 7347) HEPATITIS B SURF AG (test code = NON-REACTIVE 2599) HEPATITIS C ANTIBODY (test code NON-REACTIVE = 6511) INTERPRETATION HEPATITIS A: (NOTE) (test code = 2552) INTERPRETATION HEPATITIS B: (NOTE) (test code = 79533) INTERPRETATION HEPATITIS C: (NOTE) (test code = 65522) ACUTE HEPATITIS [id number] 00:00:00 Test Item Value Reference Range Interpretation Comments HEPATITIS A IgM (test code = NON-REACTIVE 81671) HEPATITIS B CORE IgM (test code NON-REACTIVE = 4644) HEPATITIS B SURF AG (test code = NON-REACTIVE 9859) HEPATITIS C ANTIBODY (test code NON-REACTIVE = 3949) INTERPRETATION HEPATITIS A: (NOTE) (test code = 2552) INTERPRETATION HEPATITIS B: (NOTE) (test code = 47744) INTERPRETATION HEPATITIS C: (NOTE) (test code = 56901) HEMOGLOBIN [id number] 00:00:00 Test Item Value Reference Range Interpretation Comments HEMOGLOBIN A1c (test code = 17123) 6.2 % HEMOGLOBIN [id number] 00:00:00 Test Item Value Reference Range Interpretation Comments HEMOGLOBIN A1c (test code = 30485) 6.2 % LIPID [id number] 00:00:00 Test Item Value Reference Range Interpretation Comments CHOLESTEROL (test code = 2210) 196 MG/DL TRIGLYCERIDES (test code = 2232) 486 MG/DL HDL CHOLESTEROL (test code = 44 MG/DL 2219) CALC LDL CHOL (test code = 2237) (NOTE) MG/DL RISK RATIO LDL/HDL (test code = (NOTE) RATIO 2238) COMPREHENSIVE METABOLIC [id number] 00:00:00 Test Item Value Reference Range Interpretation Comments GLUCOSE (test code = 2217) 117 MG/DL BUN (test code = 2208) 54 MG/DL CREATININE (test code = 2214) 11.27 MG/DL eGFR (2020 CKD-EPI) (test code 5 ML/MIN/1.73 = 65779) CALC BUN/CREAT (test code = 5 RATIO [...] code = 2219) 8 U/L CBC W/AUTO [id number] 00:00:00 Test Item Value Reference Range Interpretation [...] NUCLEATED RBCS (test code = 0.00 K/UL 87660) CBC W/AUTO [id number] 00:00:00 Test Item Value Reference Range Interpretation [...] NUCLEATED RBCS (test code = 0.00 K/UL 18170) CBC W/AUTO [id number] 00:00:00 Test Item Value Reference Range Interpretation [...] NUCLEATED RBCS (test code = 0.00 K/UL 84146) [id number] 00:00:00 Test Item Value Reference Range Interpretation Comments TSH, THIRD GENERATION (test 82.000 UIU/ML code = 2821) HEMOGLOBIN [id number] 00:00:00 Test Item Value Reference Range Interpretation Comments HEMOGLOBIN A1c (test code = 43641) 6.2 % HEMOGLOBIN [id number] 00:00:00 Test Item Value Reference Range Interpretation Comments HEMOGLOBIN A1c (test code = 66349) 6.2 % [id number] 00:00:00 Test Item Value Reference Range Interpretation Comments TSH, THIRD GENERATION (test 82.000 UIU/ML code = 2821) HEMOGLOBIN [id number] 00:00:00 Test Item Value Reference Range Interpretation Comments HEMOGLOBIN A1c (test code = 37995) 6.2 % HIV AB/AG COMBO RFLX [id number] 00:00:00 Test Item Value Reference Range Interpretation Comments HIV 1/2 4TH GEN, RFLX CONF (test NON-REACTIVE code = 3514) LIPID [id number] 00:00:00 Test Item Value Reference Range Interpretation Comments CHOLESTEROL (test code = 2210) 196 MG/DL TRIGLYCERIDES (test code = 2232) 486 MG/DL HDL CHOLESTEROL (test code = 44 MG/DL 2220) CALC LDL CHOL (test code = 2237) (NOTE) MG/DL RISK RATIO LDL/HDL (test code = (NOTE) RATIO 2238) LIPID [id number] 00:00:00 Test Item Value Reference Range Interpretation Comments CHOLESTEROL (test code = 2210) 196 MG/DL TRIGLYCERIDES (test code = 2232) 486 MG/DL HDL CHOLESTEROL (test code = 44 MG/DL 2220) CALC LDL CHOL (test code = 2237) (NOTE) MG/DL RISK RATIO LDL/HDL (test code = (NOTE) RATIO 2238) ACUTE HEPATITIS [id number] 00:00:00 Test Item Value Reference Range Interpretation Comments HEPATITIS A IgM (test code = NON-REACTIVE 27617) HEPATITIS B CORE IgM (test code NON-REACTIVE = 4644) HEPATITIS B SURF AG (test code = NON-REACTIVE 6994) HEPATITIS C ANTIBODY (test code NON-REACTIVE = 4600) INTERPRETATION HEPATITIS A: (NOTE) (test code = 2552) INTERPRETATION HEPATITIS B: (NOTE) (test code = 16317) INTERPRETATION HEPATITIS C: (NOTE) (test code = 55509) COMPREHENSIVE METABOLIC [id number] 00:00:00 Test Item Value Reference Range Interpretation Comments GLUCOSE (test code = 2217) 117 MG/DL BUN (test code = 2208) 54 MG/DL CREATININE (test code = 2214) 11.27 MG/DL eGFR (2020 CKD-EPI) (test code 5 ML/MIN/1.73 = 65575) CALC BUN/CREAT (test code = 5 RATIO [...] code = 2219) 8 U/L COMPREHENSIVE METABOLIC [id number] 00:00:00 Test Item Value Reference Range Interpretation Comments GLUCOSE (test code = 2217) 117 MG/DL BUN (test code = 2208) 54 MG/DL CREATININE (test code = 2214) 11.27 MG/DL eGFR (2020 CKD-EPI) (test code 5 ML/MIN/1.73 = 86727) CALC BUN/CREAT (test code = 5 RATIO [...] ALT (test code = 2219) 8 U/L [id number] 00:00:00 Test Item Value Reference Range Interpretation Comments TSH, THIRD GENERATION (test 82.000 UIU/ML code = 2821) [id number] 00:00:00 Test Item Value Reference Range Interpretation Comments TSH, THIRD GENERATION (test 82.000 UIU/ML code = 2821) [id number] 00:00:00 Test Item Value Reference Range Interpretation Comments TSH, THIRD GENERATION (test 82.000 UIU/ML code = 2821) HIV AB/AG COMBO RFLX [id number] 00:00:00 Test Item Value Reference Range Interpretation Comments HIV 1/2 4TH GEN, RFLX CONF (test NON-REACTIVE code = 3514) HIV AB/AG COMBO RFLX [id number] 00:00:00 Test Item Value Reference Range Interpretation Comments HIV 1/2 4TH GEN, RFLX CONF (test NON-REACTIVE code = 3514) ACUTE HEPATITIS [id number] 00:00:00 Test Item Value Reference Range Interpretation Comments HEPATITIS A IgM (test code = NON-REACTIVE ) HEPATITIS B CORE IgM (test code NON-REACTIVE = 4644) HEPATITIS B SURF AG (test code = NON-REACTIVE 5459) HEPATITIS C ANTIBODY (test code NON-REACTIVE = 4675) INTERPRETATION HEPATITIS A: (NOTE) (test code = 2552) INTERPRETATION HEPATITIS B: (NOTE) (test code = 48167) INTERPRETATION HEPATITIS C: (NOTE) (test code = 82609) ACUTE HEPATITIS [id number] 00:00:00 Test Item Value Reference Range Interpretation Comments HEPATITIS A IgM (test code = NON-REACTIVE 77876) HEPATITIS B CORE IgM (test code NON-REACTIVE = 4644) HEPATITIS B SURF AG (test code = NON-REACTIVE 0559) HEPATITIS C ANTIBODY (test code NON-REACTIVE = 4675) INTERPRETATION HEPATITIS A: (NOTE) (test code = 2552) INTERPRETATION HEPATITIS B: (NOTE) (test code = 60263) INTERPRETATION HEPATITIS C: (NOTE) (test code = 43956) CBC W/AUTO [id number] 00:00:00 Test Item Value Reference Range Interpretation [...] NUCLEATED RBCS (test code = 0.00 K/UL 86979) CBC W/AUTO [id number] 00:00:00 Test Item Value Reference Range Interpretation [...] NUCLEATED RBCS (test code = 0.00 K/UL 12264) CBC W/AUTO [id number] 00:00:00 Test Item Value Reference Range Interpretation [...] NUCLEATED RBCS (test code = 0.00 K/UL 97342) HEMOGLOBIN [id number] 00:00:00 Test Item Value Reference Range Interpretation Comments HEMOGLOBIN A1c (test code = 65802) 6.2 % HEMOGLOBIN [id number] 00:00:00 Test Item Value Reference Range Interpretation Comments HEMOGLOBIN A1c (test code = 05830) 6.2 % HEMOGLOBIN [id number] 00:00:00 Test Item Value Reference Range Interpretation Comments HEMOGLOBIN A1c (test code = 23814) 6.2 % LIPID [id number] 00:00:00 Test Item Value Reference Range Interpretation Comments CHOLESTEROL (test code = 2210) 196 MG/DL TRIGLYCERIDES (test code = 2232) 486 MG/DL HDL CHOLESTEROL (test code = 44 MG/DL 2220) CALC LDL CHOL (test code = 2237) (NOTE) MG/DL RISK RATIO LDL/HDL (test code = (NOTE) RATIO 2238) LIPID [id number] 00:00:00 Test Item Value Reference Range Interpretation Comments CHOLESTEROL (test code = 2210) 196 MG/DL TRIGLYCERIDES (test code = 2232) 486 MG/DL HDL CHOLESTEROL (test code = 44 MG/DL 2220) CALC LDL CHOL (test code = 2237) (NOTE) MG/DL RISK RATIO LDL/HDL (test code = (NOTE) RATIO 2238) COMPREHENSIVE METABOLIC [id number] 00:00:00 Test Item Value Reference Range Interpretation Comments GLUCOSE (test code = 2217) 117 MG/DL BUN (test code = 2208) 54 MG/DL CREATININE (test code = 2214) 11.27 MG/DL eGFR (2020 CKD-EPI) (test code 5 ML/MIN/1.73 = 90899) CALC BUN/CREAT (test code = 5 RATIO [...] code = 2219) 8 U/L COMPREHENSIVE METABOLIC [id number] 00:00:00 Test Item Value Reference Range Interpretation Comments GLUCOSE (test code = 2217) 117 MG/DL BUN (test code = 2208) 54 MG/DL CREATININE (test code = 2214) 11.27 MG/DL eGFR (2020 CKD-EPI) (test code 5 ML/MIN/1.73 = 46288) CALC BUN/CREAT (test code = 5 RATIO [...] ALT (test code = 2219) 8 U/L [id number] 00:00:00 Test Item Value Reference Range Interpretation Comments TSH, THIRD GENERATION (test 82.000 UIU/ML code = 2821) [id number] 00:00:00 Test Item Value Reference Range Interpretation Comments TSH, THIRD GENERATION (test 82.000 UIU/ML code = 2821) [id number] 00:00:00 Test Item Value Reference Range Interpretation Comments TSH, THIRD GENERATION (test 82.000 UIU/ML code = 2821) HIV AB/AG COMBO RFLX [id number] 00:00:00 Test Item Value Reference Range Interpretation Comments HIV 1/2 4TH GEN, RFLX CONF (test NON-REACTIVE code = 3514) HIV AB/AG COMBO RFLX [id number] 00:00:00 Test Item Value Reference Range Interpretation Comments HIV 1/2 4TH GEN, RFLX CONF (test NON-REACTIVE code = 3514) ACUTE HEPATITIS [id number] 00:00:00 Test Item Value Reference Range Interpretation Comments HEPATITIS A IgM (test code = NON-REACTIVE 18516) HEPATITIS B CORE IgM (test code NON-REACTIVE = 4644) HEPATITIS B SURF AG (test code = NON-REACTIVE 2739) HEPATITIS C ANTIBODY (test code NON-REACTIVE = 4675) INTERPRETATION HEPATITIS A: (NOTE) (test code = 2552) INTERPRETATION HEPATITIS B: (NOTE) (test code = 91806) INTERPRETATION HEPATITIS C: (NOTE) (test code = 76061) ACUTE HEPATITIS [id number] 00:00:00 Test Item Value Reference Range Interpretation Comments HEPATITIS A IgM (test code = NON-REACTIVE 14552) HEPATITIS B CORE IgM (test code NON-REACTIVE = 4644) HEPATITIS B SURF AG (test code = NON-REACTIVE 2739) HEPATITIS C ANTIBODY (test code NON-REACTIVE = 4675) INTERPRETATION HEPATITIS A: (NOTE) (test code = 2552) INTERPRETATION HEPATITIS B: (NOTE) (test code = 38300) INTERPRETATION HEPATITIS C: (NOTE) (test code = 19133) CBC W/AUTO [id number] 00:00:00 Test Item Value Reference Range Interpretation [...] NUCLEATED RBCS (test code = 0.00 K/UL 72663) CBC W/AUTO [id number] 00:00:00 Test Item Value Reference Range Interpretation [...] NUCLEATED RBCS (test code = 0.00 K/UL 22913) CBC W/AUTO [id number] 00:00:00 Test Item Value Reference Range Interpretation [...] NUCLEATED RBCS (test code = 0.00 K/UL 81728) HEMOGLOBIN [id number] 00:00:00 Test Item Value Reference Range Interpretation Comments HEMOGLOBIN A1c (test code = 80515) 6.2 % HEMOGLOBIN [id number] 00:00:00 Test Item Value Reference Range Interpretation Comments HEMOGLOBIN A1c (test code = 76838) 6.2 % HEMOGLOBIN [id number] 00:00:00 Test Item Value Reference Range Interpretation Comments HEMOGLOBIN A1c (test code = 68147) 6.2 % LIPID [id number] 00:00:00 Test Item Value Reference Range Interpretation Comments CHOLESTEROL (test code = 2210) 196 MG/DL TRIGLYCERIDES (test code = 2232) 486 MG/DL HDL CHOLESTEROL (test code = 44 MG/DL 2220) CALC LDL CHOL (test code = 2237) (NOTE) MG/DL RISK RATIO LDL/HDL (test code = (NOTE) RATIO 2238) LIPID [id number] 00:00:00 Test Item Value Reference Range Interpretation Comments CHOLESTEROL (test code = 2210) 196 MG/DL TRIGLYCERIDES (test code = 2232) 486 MG/DL HDL CHOLESTEROL (test code = 44 MG/DL 2220) CALC LDL CHOL (test code = 2237) (NOTE) MG/DL RISK RATIO LDL/HDL (test code = (NOTE) RATIO 2238) COMPREHENSIVE METABOLIC [id number] 00:00:00 Test Item Value Reference Range Interpretation Comments GLUCOSE (test code = 2217) 117 MG/DL BUN (test code = 2208) 54 MG/DL CREATININE (test code = 2214) 11.27 MG/DL eGFR (2020 CKD-EPI) (test code 5 ML/MIN/1.73 = 12971) CALC BUN/CREAT (test code = 5 RATIO [...] code = 2219) 8 U/L COMPREHENSIVE METABOLIC [id number] 00:00:00 Test Item Value Reference Range Interpretation Comments GLUCOSE (test code = 2217) 117 MG/DL BUN (test code = 2208) 54 MG/DL CREATININE (test code = 2214) 11.27 MG/DL eGFR (2020 CKD-EPI) (test code 5 ML/MIN/1.73 = 19886) CALC BUN/CREAT (test code = 5 RATIO [...] ALT (test code = 2219) 8 U/L [id number] 00:00:00 Test Item Value Reference Range Interpretation Comments TSH, THIRD GENERATION (test 82.000 UIU/ML code = 2821) [id number] 00:00:00 Test Item Value Reference Range Interpretation Comments TSH, THIRD GENERATION (test 82.000 UIU/ML code = 2821) [id number] 00:00:00 Test Item Value Reference Range Interpretation Comments TSH, THIRD GENERATION (test 82.000 UIU/ML code = 2821) HIV AB/AG COMBO RFLX [id number] 00:00:00 Test Item Value Reference Range Interpretation Comments HIV 1/2 4TH GEN, RFLX CONF (test NON-REACTIVE code = 3514) HIV AB/AG COMBO RFLX [id number] 00:00:00 Test Item Value Reference Range Interpretation Comments HIV 1/2 4TH GEN, RFLX CONF (test NON-REACTIVE code = 3514) ACUTE HEPATITIS [id number] 00:00:00 Test Item Value Reference Range Interpretation Comments HEPATITIS A IgM (test code = NON-REACTIVE 22099) HEPATITIS B CORE IgM (test code NON-REACTIVE = 3852) HEPATITIS B SURF AG (test code = NON-REACTIVE 7899) HEPATITIS C ANTIBODY (test code NON-REACTIVE = 9591) INTERPRETATION HEPATITIS A: (NOTE) (test code = 2552) INTERPRETATION HEPATITIS B: (NOTE) (test code = 84191) INTERPRETATION HEPATITIS C: (NOTE) (test code = 93694) ACUTE HEPATITIS [id number] 00:00:00 Test Item Value Reference Range Interpretation Comments HEPATITIS A IgM (test code = NON-REACTIVE 87932) HEPATITIS B CORE IgM (test code NON-REACTIVE = 4644) HEPATITIS B SURF AG (test code = NON-REACTIVE 8709) HEPATITIS C ANTIBODY (test code NON-REACTIVE = 4644) INTERPRETATION HEPATITIS A: (NOTE) (test code = 2552) INTERPRETATION HEPATITIS B: (NOTE) (test code = 66391) INTERPRETATION HEPATITIS C: (NOTE) (test code = 57432) CBC W/AUTO [id number] 00:00:00 Test Item Value Reference Range Interpretation [...] NUCLEATED RBCS (test code = 0.00 K/UL 60949) CBC W/AUTO [id number] 00:00:00 Test Item Value Reference Range Interpretation [...] NUCLEATED RBCS (test code = 0.00 K/UL 41078) CBC W/AUTO [id number] 00:00:00 Test Item Value Reference Range Interpretation [...] NUCLEATED RBCS (test code = 0.00 K/UL 11096) HEMOGLOBIN [id number] 00:00:00 Test Item Value Reference Range Interpretation Comments HEMOGLOBIN A1c (test code = 67156) 6.2 % HEMOGLOBIN [id number] 00:00:00 Test Item Value Reference Range Interpretation Comments HEMOGLOBIN A1c (test code = 83585) 6.2 % HEMOGLOBIN [id number] 00:00:00 Test Item Value Reference Range Interpretation Comments HEMOGLOBIN A1c (test code = 70820) 6.2 % LIPID [id number] 00:00:00 Test Item Value Reference Range Interpretation Comments CHOLESTEROL (test code = 2210) 196 MG/DL TRIGLYCERIDES (test code = 2232) 486 MG/DL HDL CHOLESTEROL (test code = 44 MG/DL 2220) CALC LDL CHOL (test code = 2237) (NOTE) MG/DL RISK RATIO LDL/HDL (test code = (NOTE) RATIO 2238) LIPID [id number] 00:00:00 Test Item Value Reference Range Interpretation Comments CHOLESTEROL (test code = 2210) 196 MG/DL TRIGLYCERIDES (test code = 2232) 486 MG/DL HDL CHOLESTEROL (test code = 44 MG/DL 2220) CALC LDL CHOL (test code = 2237) (NOTE) MG/DL RISK RATIO LDL/HDL (test code = (NOTE) RATIO 2238) COMPREHENSIVE METABOLIC [id number] 00:00:00 Test Item Value Reference Range Interpretation Comments GLUCOSE (test code = 2217) 117 MG/DL BUN (test code = 2208) 54 MG/DL CREATININE (test code = 2214) 11.27 MG/DL eGFR (2020 CKD-EPI) (test code 5 ML/MIN/1.73 = 17798) CALC BUN/CREAT (test code = 5 RATIO [...] code = 2219) 8 U/L COMPREHENSIVE METABOLIC [id number] 00:00:00 Test Item Value Reference Range Interpretation Comments GLUCOSE (test code = 2217) 117 MG/DL BUN (test code = 2208) 54 MG/DL CREATININE (test code = 2214) 11.27 MG/DL eGFR (2020 CKD-EPI) (test code 5 ML/MIN/1.73 = 86376) CALC BUN/CREAT (test code = 5 RATIO [...] ALT (test code = 2219) 8 U/L [id number] 00:00:00 Test Item Value Reference Range Interpretation Comments TSH, THIRD GENERATION (test 82.000 UIU/ML code = 2821) [id number] 00:00:00 Test Item Value Reference Range Interpretation Comments TSH, THIRD GENERATION (test 82.000 UIU/ML code = 2821) [id number] 00:00:00 Test Item Value Reference Range Interpretation Comments TSH, THIRD GENERATION (test 82.000 UIU/ML code = 2821) HIV AB/AG COMBO RFLX [id number] 00:00:00 Test Item Value Reference Range Interpretation Comments HIV 1/2 4TH GEN, RFLX CONF (test NON-REACTIVE code = 3514) HIV AB/AG COMBO RFLX [id number] 00:00:00 Test Item Value Reference Range Interpretation Comments HIV 1/2 4TH GEN, RFLX CONF (test NON-REACTIVE code = 3514) ACUTE HEPATITIS [id number] 00:00:00 Test Item Value Reference Range Interpretation Comments HEPATITIS A IgM (test code = NON-REACTIVE 49890) HEPATITIS B CORE IgM (test code NON-REACTIVE = 4644) HEPATITIS B SURF AG (test code = NON-REACTIVE 2739) HEPATITIS C ANTIBODY (test code NON-REACTIVE = 4675) INTERPRETATION HEPATITIS A: (NOTE) (test code = 2552) INTERPRETATION HEPATITIS B: (NOTE) (test code = 63139) INTERPRETATION HEPATITIS C: (NOTE) (test code = 61841) ACUTE HEPATITIS [id number] 00:00:00 Test Item Value Reference Range Interpretation Comments HEPATITIS A IgM (test code = NON-REACTIVE 15785) HEPATITIS B CORE IgM (test code NON-REACTIVE = 4644) HEPATITIS B SURF AG (test code = NON-REACTIVE 2739) HEPATITIS C ANTIBODY (test code NON-REACTIVE = 4675) INTERPRETATION HEPATITIS A: (NOTE) (test code = 2552) INTERPRETATION HEPATITIS B: (NOTE) (test code = 93335) INTERPRETATION HEPATITIS C: (NOTE) (test code = 22512) TSH, THIRD [id number] 05:58:13 Test Item Value Reference Range Interpretation Comments TSH, THIRD 33.700 UIU/ML 0.400-4.100 H UNLESS OTHERW ISE GENERATION (test INDICATED, ALL code = 2821) TESTING PERFORM ED ATCLINICAL PATH [facility] [address] [place] [id number] [place] [address] DIRECTOR: LATOYA MCCALL M.D. [place] NUMBER [id number] [facility] ACCREDITATION N O. [id number] HEMOGLOBIN [id number] 02:44:08 Test Item Value Reference Range Interpretation Comments HEMOGLOBIN A1c (test 7.0 % 4.2-5.6 H AMERIC AN DIABETES code = 78986) ASSOCIATION [employer] FOR HGB A1C: PREDIABETES/INC REASED [...] Interpretation Comments HEMOGLOBIN A1c (test code = 74403) 7.0 % HEMOGLOBIN A1c [ADDED]2021-05-16 00:00:00 Test Item Value Reference Range Interpretation Comments HEMOGLOBIN A1c (test code = 30091) 7.0 % HEMOGLOBIN A1c [ADDED]2021-05-16 00:00:00 Test Item Value Reference Range Interpretation Comments HEMOGLOBIN A1c (test code = 48398) 7.0 % TSH, THIRD GENERATION [ADDED]2021-05-16 00:00:00 [...] Interpretation Comments HEMOGLOBIN A1c (test code = 43525) 7.0 % HEMOGLOBIN A1c [ADDED]2021-05-16 00:00:00 Test Item Value Reference Range Interpretation Comments HEMOGLOBIN A1c (test code = 08127) 7.0 % HEMOGLOBIN A1c [ADDED]2021-05-16 00:00:00 Test Item Value Reference Range Interpretation Comments HEMOGLOBIN A1c (test code = 09973) 7.0 % TSH, THIRD GENERATION [ADDED]2021-05-16 00:00:00 [...] Interpretation Comments HEMOGLOBIN A1c (test code = 53165) 7.0 % HEMOGLOBIN A1c [ADDED]2021-05-16 00:00:00 Test Item Value Reference Range Interpretation Comments HEMOGLOBIN A1c (test code = 20760) 7.0 % HEMOGLOBIN A1c [ADDED]2021-05-16 00:00:00 Test Item Value Reference Range Interpretation Comments HEMOGLOBIN A1c (test code = 76009) 7.0 % HEMOGLOBIN A1c [ADDED]2021-05-16 00:00:00 Test Item Value Reference Range Interpretation Comments HEMOGLOBIN A1c (test code = 16302) 7.0 % HEMOGLOBIN A1c [ADDED]2021-05-16 00:00:00 Test Item Value Reference Range Interpretation Comments HEMOGLOBIN A1c (test code = 76492) 7.0 % TSH, THIRD GENERATION [ADDED]2021-05-16 00:00:00 [...] Interpretation Comments HEMOGLOBIN A1c (test code = 90501) 7.0 % HEMOGLOBIN A1c [ADDED]2021-05-16 00:00:00 Test Item Value Reference Range Interpretation Comments HEMOGLOBIN A1c (test code = 90329) 7.0 % HEMOGLOBIN A1c [ADDED]2021-05-16 00:00:00 Test Item Value Reference Range Interpretation Comments HEMOGLOBIN A1c (test code = 98278) 7.0 % TSH, THIRD GENERATION [ADDED]2021-05-16 00:00:00 [...] Interpretation Comments HEMOGLOBIN A1c (test code = 48260) 7.0 % HEMOGLOBIN A1c [ADDED]2021-05-16 00:00:00 Test Item Value Reference Range Interpretation Comments HEMOGLOBIN A1c (test code = 40975) 7.0 % HEMOGLOBIN A1c [ADDED]2021-05-16 00:00:00 Test Item Value Reference Range Interpretation Comments HEMOGLOBIN A1c (test code = 57741) 7.0 % TSH, THIRD GENERATION [ADDED]2021-05-16 00:00:00 [...] Interpretation Comments HEMOGLOBIN A1c (test code = 63670) 7.0 % HEMOGLOBIN A1c [ADDED]2021-05-16 00:00:00 Test Item Value Reference Range Interpretation Comments HEMOGLOBIN A1c (test code = 29796) 7.0 % HEMOGLOBIN A1c [ADDED]2021-05-16 00:00:00 Test Item Value Reference Range Interpretation Comments HEMOGLOBIN A1c (test code = 61881) 7.0 % TSH, THIRD GENERATION [ADDED]2021-05-16 00:00:00 [...] Interpretation Comments HEMOGLOBIN A1c (test code = 61381) 7.0 % HEMOGLOBIN A1c [ADDED]2021-05-16 00:00:00 Test Item Value Reference Range Interpretation Comments HEMOGLOBIN A1c (test code = 49575) 7.0 % HEMOGLOBIN A1c [ADDED]2021-05-16 00:00:00 Test Item Value Reference Range Interpretation Comments HEMOGLOBIN A1c (test code = 83438) 7.0 % TSH, THIRD GENERATION [ADDED]2021-05-16 00:00:00 [...] 33.700 UIU/ML code = 2821) CBC W/AUTO [id number] 00:00:00 Test Item Value Reference Range Interpretation [...] NUCLEATED RBCS (test code = 0.00 K/UL 69919) CBC W/AUTO [id number] 00:00:00 Test Item Value Reference Range Interpretation [...] NUCLEATED RBCS (test code = 0.00 K/UL 75376) CBC W/AUTO [id number] 00:00:00 Test Item Value Reference Range Interpretation [...] NUCLEATED RBCS (test code = 0.00 K/UL 78265) COMPREHENSIVE METABOLIC [id number] 00:00:00 Test Item Value Reference Range Interpretation Comments GLUCOSE (test code = 2217) 317 MG/DL BUN (test code = 2208) 41 MG/DL CREATININE (test code = 2214) 6.82 MG/DL eGFR (2020 CKD-EPI) (test code 8 ML/MIN/1.73 = 86422) CALC BUN/CREAT (test code = 6 RATIO [...] code = 2219) 22 U/L COMPREHENSIVE METABOLIC [id number] 00:00:00 Test Item Value Reference Range Interpretation Comments GLUCOSE (test code = 2217) 317 MG/DL BUN (test code = 2208) 41 MG/DL CREATININE (test code = 2214) 6.82 MG/DL eGFR (2020 CKD-EPI) (test code 8 ML/MIN/1.73 = 54631) CALC BUN/CREAT (test code = 6 RATIO [...] code = 2219) 22 U/L CBC W/AUTO [id number] 00:00:00 Test Item Value Reference Range Interpretation [...] NUCLEATED RBCS (test code = 0.00 K/UL 36665) CBC W/AUTO [id number] 00:00:00 Test Item Value Reference Range Interpretation [...] NUCLEATED RBCS (test code = 0.00 K/UL 59488) CBC W/AUTO [id number] 00:00:00 Test Item Value Reference Range Interpretation [...] NUCLEATED RBCS (test code = 0.00 K/UL 49920) COMPREHENSIVE METABOLIC [id number] 00:00:00 Test Item Value Reference Range Interpretation Comments GLUCOSE (test code = 2217) 317 MG/DL BUN (test code = 2208) 41 MG/DL CREATININE (test code = 2214) 6.82 MG/DL eGFR (2020 CKD-EPI) (test code 8 ML/MIN/1.73 = 46818) CALC BUN/CREAT (test code = 6 RATIO [...] code = 2219) 22 U/L COMPREHENSIVE METABOLIC [id number] 00:00:00 Test Item Value Reference Range Interpretation Comments GLUCOSE (test code = 2217) 317 MG/DL BUN (test code = 2208) 41 MG/DL CREATININE (test code = 2214) 6.82 MG/DL eGFR (2020 CKD-EPI) (test code 8 ML/MIN/1.73 = 67387) CALC BUN/CREAT (test code = 6 RATIO [...] code = 2219) 22 U/L CBC W/AUTO [id number] 00:00:00 Test Item Value Reference Range Interpretation [...] NUCLEATED RBCS (test code = 0.00 K/UL 00476) CBC W/AUTO [id number] 00:00:00 Test Item Value Reference Range Interpretation [...] NUCLEATED RBCS (test code = 0.00 K/UL 42658) CBC W/AUTO [id number] 00:00:00 Test Item Value Reference Range Interpretation [...] NUCLEATED RBCS (test code = 0.00 K/UL 55239) CBC W/AUTO [id number] 00:00:00 Test Item Value Reference Range Interpretation [...] NUCLEATED RBCS (test code = 0.00 K/UL 41876) CBC W/AUTO [id number] 00:00:00 Test Item Value Reference Range Interpretation [...] NUCLEATED RBCS (test code = 0.00 K/UL 68857) COMPREHENSIVE METABOLIC [id number] 00:00:00 Test Item Value Reference Range Interpretation Comments GLUCOSE (test code = 2217) 317 MG/DL BUN (test code = 2208) 41 MG/DL CREATININE (test code = 2214) 6.82 MG/DL eGFR (2020 CKD-EPI) (test code 8 ML/MIN/1.73 = 46829) CALC BUN/CREAT (test code = 6 RATIO [...] code = 2219) 22 U/L COMPREHENSIVE METABOLIC [id number] 00:00:00 Test Item Value Reference Range Interpretation Comments GLUCOSE (test code = 2217) 317 MG/DL BUN (test code = 2208) 41 MG/DL CREATININE (test code = 2214) 6.82 MG/DL eGFR (2020 CKD-EPI) (test code 8 ML/MIN/1.73 = 46270) CALC BUN/CREAT (test code = 6 RATIO [...] code = 2219) 22 U/L COMPREHENSIVE METABOLIC [id number] 00:00:00 Test Item Value Reference Range Interpretation Comments GLUCOSE (test code = 2217) 317 MG/DL BUN (test code = 2208) 41 MG/DL CREATININE (test code = 2214) 6.82 MG/DL eGFR (2020 CKD-EPI) (test code 8 ML/MIN/1.73 = 07722) CALC BUN/CREAT (test code = 6 RATIO [...] code = 2219) 22 U/L CBC W/AUTO [id number] 00:00:00 Test Item Value Reference Range Interpretation [...] NUCLEATED RBCS (test code = 0.00 K/UL 82286) CBC W/AUTO [id number] 00:00:00 Test Item Value Reference Range Interpretation [...] NUCLEATED RBCS (test code = 0.00 K/UL 14975) CBC W/AUTO [id number] 00:00:00 Test Item Value Reference Range Interpretation [...] NUCLEATED RBCS (test code = 0.00 K/UL 33294) COMPREHENSIVE METABOLIC [id number] 00:00:00 Test Item Value Reference Range Interpretation Comments GLUCOSE (test code = 2217) 317 MG/DL BUN (test code = 2208) 41 MG/DL CREATININE (test code = 2214) 6.82 MG/DL eGFR (2020 CKD-EPI) (test code 8 ML/MIN/1.73 = 18106) CALC BUN/CREAT (test code = 6 RATIO [...] code = 2219) 22 U/L COMPREHENSIVE METABOLIC [id number] 00:00:00 Test Item Value Reference Range Interpretation Comments GLUCOSE (test code = 2217) 317 MG/DL BUN (test code = 2208) 41 MG/DL CREATININE (test code = 2214) 6.82 MG/DL eGFR (2020 CKD-EPI) (test code 8 ML/MIN/1.73 = 03492) CALC BUN/CREAT (test code = 6 RATIO [...] code = 2219) 22 U/L CBC W/AUTO [id number] 00:00:00 Test Item Value Reference Range Interpretation [...] NUCLEATED RBCS (test code = 0.00 K/UL 00943) CBC W/AUTO [id number] 00:00:00 Test Item Value Reference Range Interpretation [...] NUCLEATED RBCS (test code = 0.00 K/UL 98784) CBC W/AUTO [id number] 00:00:00 Test Item Value Reference Range Interpretation [...] NUCLEATED RBCS (test code = 0.00 K/UL 73697) COMPREHENSIVE METABOLIC [id number] 00:00:00 Test Item Value Reference Range Interpretation Comments GLUCOSE (test code = 2217) 317 MG/DL BUN (test code = 2208) 41 MG/DL CREATININE (test code = 2214) 6.82 MG/DL eGFR (2020 CKD-EPI) (test code 8 ML/MIN/1.73 = 15206) CALC BUN/CREAT (test code = 6 RATIO [...] code = 2219) 22 U/L COMPREHENSIVE METABOLIC [id number] 00:00:00 Test Item Value Reference Range Interpretation Comments GLUCOSE (test code = 2217) 317 MG/DL BUN (test code = 2208) 41 MG/DL CREATININE (test code = 2214) 6.82 MG/DL eGFR (2020 CKD-EPI) (test code 8 ML/MIN/1.73 = 38143) CALC BUN/CREAT (test code = 6 RATIO [...] code = 2219) 22 U/L CBC W/AUTO [id number] 00:00:00 Test Item Value Reference Range Interpretation [...] NUCLEATED RBCS (test code = 0.00 K/UL 41615) CBC W/AUTO [id number] 00:00:00 Test Item Value Reference Range Interpretation [...] NUCLEATED RBCS (test code = 0.00 K/UL 66285) CBC W/AUTO [id number] 00:00:00 Test Item Value Reference Range Interpretation [...] NUCLEATED RBCS (test code = 0.00 K/UL 21108) COMPREHENSIVE METABOLIC [id number] 00:00:00 Test Item Value Reference Range Interpretation Comments GLUCOSE (test code = 2217) 317 MG/DL BUN (test code = 2208) 41 MG/DL CREATININE (test code = 2214) 6.82 MG/DL eGFR (2020 CKD-EPI) (test code 8 ML/MIN/1.73 = 30685) CALC BUN/CREAT (test code = 6 RATIO [...] code = 2219) 22 U/L COMPREHENSIVE METABOLIC [id number] 00:00:00 Test Item Value Reference Range Interpretation Comments GLUCOSE (test code = 2217) 317 MG/DL BUN (test code = 2208) 41 MG/DL CREATININE (test code = 2214) 6.82 MG/DL eGFR (2020 CKD-EPI) (test code 8 ML/MIN/1.73 = 63687) CALC BUN/CREAT (test code = 6 RATIO [...] code = 2219) 22 U/L CBC W/AUTO [id number] 00:00:00 Test Item Value Reference Range Interpretation [...] NUCLEATED RBCS (test code = 0.00 K/UL 68599) CBC W/AUTO [id number] 00:00:00 Test Item Value Reference Range Interpretation [...] NUCLEATED RBCS (test code = 0.00 K/UL 66520) CBC W/AUTO [id number] 00:00:00 Test Item Value Reference Range Interpretation [...] NUCLEATED RBCS (test code = 0.00 K/UL 18848) COMPREHENSIVE METABOLIC [id number] 00:00:00 Test Item Value Reference Range Interpretation Comments GLUCOSE (test code = 2217) 317 MG/DL BUN (test code = 2208) 41 MG/DL CREATININE (test code = 2214) 6.82 MG/DL eGFR (2020 CKD-EPI) (test code 8 ML/MIN/1.73 = 89331) CALC BUN/CREAT (test code = 6 RATIO [...] code = 2219) 22 U/L COMPREHENSIVE METABOLIC [id number] 00:00:00 Test Item Value Reference Range Interpretation Comments GLUCOSE (test code = 2217) 317 MG/DL BUN (test code = 2208) 41 MG/DL CREATININE (test code = 2214) 6.82 MG/DL eGFR (2020 CKD-EPI) (test code 8 ML/MIN/1.73 = 02274) CALC BUN/CREAT (test code = 6 RATIO [...] ALT (test code = 2219) 22 U/L [id number] 00:00:00 Test Item Value Reference Range Interpretation Comments AMYLASE (test code = 2205) 168 U/L [id number] 00:00:00 Test Item Value Reference Range Interpretation Comments AMYLASE (test code = 2205) 168 U/L [id number] 00:00:00 Test Item Value Reference Range Interpretation Comments LIPASE (test code = 2057) 116 U/L [id number] 00:00:00 Test Item Value Reference Range Interpretation Comments LIPASE (test code = 2057) 116 U/L [id number] 00:00:00 Test Item Value Reference Range Interpretation Comments LIPASE (test code = 2057) 116 U/L [id number] 00:00:00 Test Item Value Reference Range Interpretation Comments AMYLASE (test code = 2205) 168 U/L [id number] 00:00:00 Test Item Value Reference Range Interpretation Comments AMYLASE (test code = 2205) 168 U/L [id number] 00:00:00 Test Item Value Reference Range Interpretation Comments LIPASE (test code = 2057) 116 U/L [id number] 00:00:00 Test Item Value Reference Range Interpretation Comments LIPASE (test code = 2057) 116 U/L [id number] 00:00:00 Test Item Value Reference Range Interpretation Comments LIPASE (test code = 2057) 116 U/L [id number] 00:00:00 Test Item Value Reference Range Interpretation Comments AMYLASE (test code = 2205) 168 U/L [id number] 00:00:00 Test Item Value Reference Range Interpretation Comments AMYLASE (test code = 2205) 168 U/L [id number] 00:00:00 Test Item Value Reference Range Interpretation Comments AMYLASE (test code = 2205) 168 U/L [id number] 00:00:00 Test Item Value Reference Range Interpretation Comments LIPASE (test code = 2057) 116 U/L [id number] 00:00:00 Test Item Value Reference Range Interpretation Comments LIPASE (test code = 2057) 116 U/L [id number] 00:00:00 Test Item Value Reference Range Interpretation Comments LIPASE (test code = 2057) 116 U/L [id number] 00:00:00 Test Item Value Reference Range Interpretation Comments LIPASE (test code = 2057) 116 U/L [id number] 00:00:00 Test Item Value Reference Range Interpretation Comments LIPASE (test code = 2057) 116 U/L [id number] 00:00:00 Test Item Value Reference Range Interpretation Comments AMYLASE (test code = 2204) 168 U/L [id number] 00:00:00 Test Item Value Reference Range Interpretation Comments AMYLASE (test code = 2204) 168 U/L [id number] 00:00:00 Test Item Value Reference Range Interpretation Comments LIPASE (test code = 2057) 116 U/L [id number] 00:00:00 Test Item Value Reference Range Interpretation Comments LIPASE (test code = 2057) 116 U/L [id number] 00:00:00 Test Item Value Reference Range Interpretation Comments LIPASE (test code = 2057) 116 U/L [id number] 00:00:00 Test Item Value Reference Range Interpretation Comments AMYLASE (test code = 2204) 168 U/L [id number] 00:00:00 Test Item Value Reference Range Interpretation Comments AMYLASE (test code = 2204) 168 U/L [id number] 00:00:00 Test Item Value Reference Range Interpretation Comments LIPASE (test code = 2057) 116 U/L [id number] 00:00:00 Test Item Value Reference Range Interpretation Comments LIPASE (test code = 2057) 116 U/L [id number] 00:00:00 Test Item Value Reference Range Interpretation Comments LIPASE (test code = 2057) 116 U/L [id number] 00:00:00 Test Item Value Reference Range Interpretation Comments AMYLASE (test code = 2204) 168 U/L [id number] 00:00:00 Test Item Value Reference Range Interpretation Comments AMYLASE (test code = 2204) 168 U/L [id number] 00:00:00 Test Item Value Reference Range Interpretation Comments LIPASE (test code = 2057) 116 U/L [id number] 00:00:00 Test Item Value Reference Range Interpretation Comments LIPASE (test code = 2057) 116 U/L [id number] 00:00:00 Test Item Value Reference Range Interpretation Comments LIPASE (test code = 2057) 116 U/L [id number] 00:00:00 Test Item Value Reference Range Interpretation Comments AMYLASE (test code = 5) 168 U/L [id number] 00:00:00 Test Item Value Reference Range Interpretation Comments AMYLASE (test code = 2205) 168 U/L [id number] 00:00:00 Test Item Value Reference Range Interpretation Comments LIPASE (test code = 2058) 116 U/L [id number] 00:00:00 Test Item Value Reference Range Interpretation Comments LIPASE (test code = 2058) 116 U/L [id number] 00:00:00 Test Item Value Reference Range Interpretation Comments LIPASE (test code = 2058) 116 U/L [id number] 00:00:00 Test Item Value Reference Range Interpretation Comments TSH, THIRD GENERATION (test >100.000 UIU/ML code = 2821) [id number] 00:00:00 Test Item Value Reference Range Interpretation Comments TSH, THIRD GENERATION (test >100.000 UIU/ML code = 2821) [id number] 00:00:00 Test Item Value Reference Range Interpretation Comments TSH, THIRD GENERATION (test >100.000 UIU/ML code = 2821) LIPID [id number] 00:00:00 Test Item Value Reference Range Interpretation Comments CHOLESTEROL (test code = 2210) 308 MG/DL TRIGLYCERIDES (test code = 2232) 280 MG/DL HDL CHOLESTEROL (test code = 2220) 66 MG/DL CALC LDL CHOL (test code = 2237) 192 MG/DL RISK RATIO LDL/HDL (test code = 2.91 RATIO 2238) LIPID [id number] 00:00:00 Test Item Value Reference Range Interpretation Comments CHOLESTEROL (test code = 2210) 308 MG/DL TRIGLYCERIDES (test code = 2232) 280 MG/DL HDL CHOLESTEROL (test code = 2220) 66 MG/DL CALC LDL CHOL (test code = 2237) 192 MG/DL RISK RATIO LDL/HDL (test code = 2.91 RATIO 2238) CBC W/AUTO [id number] 00:00:00 Test Item Value Reference Range Interpretation [...] NUCLEATED RBCS (test code = 0.00 K/UL 80638) CBC W/AUTO [id number] 00:00:00 Test Item Value Reference Range Interpretation [...] NUCLEATED RBCS (test code = 0.00 K/UL 06166) CBC W/AUTO [id number] 00:00:00 Test Item Value Reference Range Interpretation [...] NUCLEATED RBCS (test code = 0.00 K/UL 42560) COMPREHENSIVE METABOLIC [id number] 00:00:00 Test Item Value Reference Range Interpretation Comments GLUCOSE (test code = 2217) 137 MG/DL BUN (test code = 2208) 56 MG/DL CREATININE (test code = 2214) 10.21 MG/DL eGFR AMER. (test code = 6 ML/MIN/1.73 13508) eGFR NON- AMER. (test 5 ML/MIN/1.73 code = 42332) CALC BUN/CREAT (test code = 5 RATIO [...] code = 2219) 16 U/L COMPREHENSIVE METABOLIC [id number] 00:00:00 Test Item Value Reference Range Interpretation Comments GLUCOSE (test code = 2217) 137 MG/DL BUN (test code = 2208) 56 MG/DL CREATININE (test code = 2214) 10.21 MG/DL eGFR AMER. (test code = 6 ML/MIN/1.73 57430) eGFR NON- AMER. (test 5 ML/MIN/1.73 code = 64372) CALC BUN/CREAT (test code = 5 RATIO [...] ALT (test code = 2219) 16 U/L [id number] 00:00:00 Test Item Value Reference Range Interpretation Comments TSH, THIRD GENERATION (test >100.000 UIU/ML code = 2821) [id number] 00:00:00 Test Item Value Reference Range Interpretation Comments TSH, THIRD GENERATION (test >100.000 UIU/ML code = 2821) [id number] 00:00:00 Test Item Value Reference Range Interpretation Comments TSH, THIRD GENERATION (test >100.000 UIU/ML code = 2821) LIPID [id number] 00:00:00 Test Item Value Reference Range Interpretation Comments CHOLESTEROL (test code = 2210) 308 MG/DL TRIGLYCERIDES (test code = 2232) 280 MG/DL HDL CHOLESTEROL (test code = 2220) 66 MG/DL CALC LDL CHOL (test code = 2237) 192 MG/DL RISK RATIO LDL/HDL (test code = 2.91 RATIO 2238) LIPID [id number] 00:00:00 Test Item Value Reference Range Interpretation Comments CHOLESTEROL (test code = 2210) 308 MG/DL TRIGLYCERIDES (test code = 2232) 280 MG/DL HDL CHOLESTEROL (test code = 2220) 66 MG/DL CALC LDL CHOL (test code = 2237) 192 MG/DL RISK RATIO LDL/HDL (test code = 2.91 RATIO 2238) CBC W/AUTO [id number] 00:00:00 Test Item Value Reference Range Interpretation [...] NUCLEATED RBCS (test code = 0.00 K/UL 61436) CBC W/AUTO [id number] 00:00:00 Test Item Value Reference Range Interpretation [...] NUCLEATED RBCS (test code = 0.00 K/UL 89548) CBC W/AUTO [id number] 00:00:00 Test Item Value Reference Range Interpretation [...] NUCLEATED RBCS (test code = 0.00 K/UL 38596) COMPREHENSIVE METABOLIC [id number] 00:00:00 Test Item Value Reference Range Interpretation Comments GLUCOSE (test code = 2217) 137 MG/DL BUN (test code = 2208) 56 MG/DL CREATININE (test code = 2214) 10.21 MG/DL eGFR AMER. (test code = 6 ML/MIN/1.73 43421) eGFR NON- AMER. (test 5 ML/MIN/1.73 code = 18743) CALC BUN/CREAT (test code = 5 RATIO [...] code = 2219) 16 U/L COMPREHENSIVE METABOLIC [id number] 00:00:00 Test Item Value Reference Range Interpretation Comments GLUCOSE (test code = 2217) 137 MG/DL BUN (test code = 2208) 56 MG/DL CREATININE (test code = 2214) 10.21 MG/DL eGFR AMER. (test code = 6 ML/MIN/1.73 11661) eGFR NON- AMER. (test 5 ML/MIN/1.73 code = 66421) CALC BUN/CREAT (test code = 5 RATIO [...] ALT (test code = 2219) 16 U/L [id number] 00:00:00 Test Item Value Reference Range Interpretation Comments TSH, THIRD GENERATION (test >100.000 UIU/ML code = 2821) [id number] 00:00:00 Test Item Value Reference Range Interpretation Comments TSH, THIRD GENERATION (test >100.000 UIU/ML code = 2821) [id number] 00:00:00 Test Item Value Reference Range Interpretation Comments TSH, THIRD GENERATION (test >100.000 UIU/ML code = 2821) [id number] 00:00:00 Test Item Value Reference Range Interpretation Comments TSH, THIRD GENERATION (test >100.000 UIU/ML code = 2821) [id number] 00:00:00 Test Item Value Reference Range Interpretation Comments TSH, THIRD GENERATION (test >100.000 UIU/ML code = 2821) LIPID [id number] 00:00:00 Test Item Value Reference Range Interpretation Comments CHOLESTEROL (test code = 2210) 308 MG/DL TRIGLYCERIDES (test code = 2232) 280 MG/DL HDL CHOLESTEROL (test code = 2220) 66 MG/DL CALC LDL CHOL (test code = 2237) 192 MG/DL RISK RATIO LDL/HDL (test code = 2.91 RATIO 2238) LIPID [id number] 00:00:00 Test Item Value Reference Range Interpretation Comments CHOLESTEROL (test code = 2210) 308 MG/DL TRIGLYCERIDES (test code = 2232) 280 MG/DL HDL CHOLESTEROL (test code = 2220) 66 MG/DL CALC LDL CHOL (test code = 2237) 192 MG/DL RISK RATIO LDL/HDL (test code = 2.91 RATIO 2238) CBC W/AUTO [id number] 00:00:00 Test Item Value Reference Range Interpretation [...] NUCLEATED RBCS (test code = 0.00 K/UL 07671) CBC W/AUTO [id number] 00:00:00 Test Item Value Reference Range Interpretation [...] NUCLEATED RBCS (test code = 0.00 K/UL 29616) CBC W/AUTO [id number] 00:00:00 Test Item Value Reference Range Interpretation [...] NUCLEATED RBCS (test code = 0.00 K/UL 07604) COMPREHENSIVE METABOLIC [id number] 00:00:00 Test Item Value Reference Range Interpretation Comments GLUCOSE (test code = 2217) 137 MG/DL BUN (test code = 2208) 56 MG/DL CREATININE (test code = 2214) 10.21 MG/DL eGFR AMER. (test code = 6 ML/MIN/1.73 11556) eGFR NON- AMER. (test 5 ML/MIN/1.73 code = 28843) CALC BUN/CREAT (test code = 5 RATIO [...] code = 2219) 16 U/L COMPREHENSIVE METABOLIC [id number] 00:00:00 Test Item Value Reference Range Interpretation Comments GLUCOSE (test code = 2217) 137 MG/DL BUN (test code = 2208) 56 MG/DL CREATININE (test code = 2214) 10.21 MG/DL eGFR AMER. (test code = 6 ML/MIN/1.73 29557) eGFR NON- AMER. (test 5 ML/MIN/1.73 code = 54614) CALC BUN/CREAT (test code = 5 RATIO [...] (test code = 2219) 16 U/L LIPID [id number] 00:00:00 Test Item Value Reference Range Interpretation Comments CHOLESTEROL (test code = 2210) 308 MG/DL TRIGLYCERIDES (test code = 2232) 280 MG/DL HDL CHOLESTEROL (test code = 2220) 66 MG/DL CALC LDL CHOL (test code = 2237) 192 MG/DL RISK RATIO LDL/HDL (test code = 2.91 RATIO 2238) CBC W/AUTO [id number] 00:00:00 Test Item Value Reference Range Interpretation [...] NUCLEATED RBCS (test code = 0.00 K/UL 06708) CBC W/AUTO [id number] 00:00:00 Test Item Value Reference Range Interpretation [...] NUCLEATED RBCS (test code = 0.00 K/UL 76175) COMPREHENSIVE METABOLIC [id number] 00:00:00 Test Item Value Reference Range Interpretation Comments GLUCOSE (test code = 2217) 137 MG/DL BUN (test code = 2208) 56 MG/DL CREATININE (test code = 2214) 10.21 MG/DL eGFR AMER. (test code = 6 ML/MIN/1.73 82240) eGFR NON- AMER. (test 5 ML/MIN/1.73 code = 42532) CALC BUN/CREAT (test code = 5 RATIO [...] ALT (test code = 2219) 16 U/L [id number] 00:00:00 Test Item Value Reference Range Interpretation Comments TSH, THIRD GENERATION (test >100.000 UIU/ML code = 2821) [id number] 00:00:00 Test Item Value Reference Range Interpretation Comments TSH, THIRD GENERATION (test >100.000 UIU/ML code = 2821) [id number] 00:00:00 Test Item Value Reference Range Interpretation Comments TSH, THIRD GENERATION (test >100.000 UIU/ML code = 2821) LIPID [id number] 00:00:00 Test Item Value Reference Range Interpretation Comments CHOLESTEROL (test code = 2210) 308 MG/DL TRIGLYCERIDES (test code = 2232) 280 MG/DL HDL CHOLESTEROL (test code = 2220) 66 MG/DL CALC LDL CHOL (test code = 2237) 192 MG/DL RISK RATIO LDL/HDL (test code = 2.91 RATIO 2238) LIPID [id number] 00:00:00 Test Item Value Reference Range Interpretation Comments CHOLESTEROL (test code = 2210) 308 MG/DL TRIGLYCERIDES (test code = 2232) 280 MG/DL HDL CHOLESTEROL (test code = 2220) 66 MG/DL CALC LDL CHOL (test code = 2237) 192 MG/DL RISK RATIO LDL/HDL (test code = 2.91 RATIO 2238) CBC W/AUTO [id number] 00:00:00 Test Item Value Reference Range Interpretation [...] NUCLEATED RBCS (test code = 0.00 K/UL 97853) CBC W/AUTO [id number] 00:00:00 Test Item Value Reference Range Interpretation [...] NUCLEATED RBCS (test code = 0.00 K/UL 19932) CBC W/AUTO [id number] 00:00:00 Test Item Value Reference Range Interpretation [...] NUCLEATED RBCS (test code = 0.00 K/UL 71118) COMPREHENSIVE METABOLIC [id number] 00:00:00 Test Item Value Reference Range Interpretation Comments GLUCOSE (test code = 2217) 137 MG/DL BUN (test code = 2208) 56 MG/DL CREATININE (test code = 2214) 10.21 MG/DL eGFR AMER. (test code = 6 ML/MIN/1.73 40346) eGFR NON- AMER. (test 5 ML/MIN/1.73 code = 37994) CALC BUN/CREAT (test code = 5 RATIO [...] code = 2219) 16 U/L COMPREHENSIVE METABOLIC [id number] 00:00:00 Test Item Value Reference Range Interpretation Comments GLUCOSE (test code = 2217) 137 MG/DL BUN (test code = 2208) 56 MG/DL CREATININE (test code = 2214) 10.21 MG/DL eGFR AMER. (test code = 6 ML/MIN/1.73 44678) eGFR NON- AMER. (test 5 ML/MIN/1.73 code = 54617) CALC BUN/CREAT (test code = 5 RATIO [...] ALT (test code = 2219) 16 U/L [id number] 00:00:00 Test Item Value Reference Range Interpretation Comments TSH, THIRD GENERATION (test >100.000 UIU/ML code = 2821) [id number] 00:00:00 Test Item Value Reference Range Interpretation Comments TSH, THIRD GENERATION (test >100.000 UIU/ML code = 2821) [id number] 00:00:00 Test Item Value Reference Range Interpretation Comments TSH, THIRD GENERATION (test >100.000 UIU/ML code = 2821) LIPID [id number] 00:00:00 Test Item Value Reference Range Interpretation Comments CHOLESTEROL (test code = 2210) 308 MG/DL TRIGLYCERIDES (test code = 2232) 280 MG/DL HDL CHOLESTEROL (test code = 2220) 66 MG/DL CALC LDL CHOL (test code = 2237) 192 MG/DL RISK RATIO LDL/HDL (test code = 2.91 RATIO 2238) LIPID [id number] 00:00:00 Test Item Value Reference Range Interpretation Comments CHOLESTEROL (test code = 2210) 308 MG/DL TRIGLYCERIDES (test code = 2232) 280 MG/DL HDL CHOLESTEROL (test code = 2220) 66 MG/DL CALC LDL CHOL (test code = 2237) 192 MG/DL RISK RATIO LDL/HDL (test code = 2.91 RATIO 2238) CBC W/AUTO [id number] 00:00:00 Test Item Value Reference Range Interpretation [...] NUCLEATED RBCS (test code = 0.00 K/UL 80763) CBC W/AUTO [id number] 00:00:00 Test Item Value Reference Range Interpretation [...] NUCLEATED RBCS (test code = 0.00 K/UL 93312) CBC W/AUTO [id number] 00:00:00 Test Item Value Reference Range Interpretation [...] NUCLEATED RBCS (test code = 0.00 K/UL 84718) COMPREHENSIVE METABOLIC [id number] 00:00:00 Test Item Value Reference Range Interpretation Comments GLUCOSE (test code = 2217) 137 MG/DL BUN (test code = 2208) 56 MG/DL CREATININE (test code = 2214) 10.21 MG/DL eGFR AMER. (test code = 6 ML/MIN/1.73 70133) eGFR NON- AMER. (test 5 ML/MIN/1.73 code = 25644) CALC BUN/CREAT (test code = 5 RATIO [...] code = 2219) 16 U/L COMPREHENSIVE METABOLIC [id number] 00:00:00 Test Item Value Reference Range Interpretation Comments GLUCOSE (test code = 2217) 137 MG/DL BUN (test code = 2208) 56 MG/DL CREATININE (test code = 2214) 10.21 MG/DL eGFR AMER. (test code = 6 ML/MIN/1.73 63697) eGFR NON- AMER. (test 5 ML/MIN/1.73 code = 21323) CALC BUN/CREAT (test code = 5 RATIO [...] ALT (test code = 2219) 16 U/L [id number] 00:00:00 Test Item Value Reference Range Interpretation Comments TSH, THIRD GENERATION (test >100.000 UIU/ML code = 2821) [id number] 00:00:00 Test Item Value Reference Range Interpretation Comments TSH, THIRD GENERATION (test >100.000 UIU/ML code = 2821) [id number] 00:00:00 Test Item Value Reference Range Interpretation Comments TSH, THIRD GENERATION (test >100.000 UIU/ML code = 2821) LIPID [id number] 00:00:00 Test Item Value Reference Range Interpretation Comments CHOLESTEROL (test code = 2210) 308 MG/DL TRIGLYCERIDES (test code = 2232) 280 MG/DL HDL CHOLESTEROL (test code = 2220) 66 MG/DL CALC LDL CHOL (test code = 2237) 192 MG/DL RISK RATIO LDL/HDL (test code = 2.91 RATIO 2238) LIPID [id number] 00:00:00 Test Item Value Reference Range Interpretation Comments CHOLESTEROL (test code = 2210) 308 MG/DL TRIGLYCERIDES (test code = 2232) 280 MG/DL HDL CHOLESTEROL (test code = 2220) 66 MG/DL CALC LDL CHOL (test code = 2237) 192 MG/DL RISK RATIO LDL/HDL (test code = 2.91 RATIO 2238) CBC W/AUTO [id number] 00:00:00 Test Item Value Reference Range Interpretation [...] NUCLEATED RBCS (test code = 0.00 K/UL 35995) CBC W/AUTO [id number] 00:00:00 Test Item Value Reference Range Interpretation [...] NUCLEATED RBCS (test code = 0.00 K/UL 34972) CBC W/AUTO [id number] 00:00:00 Test Item Value Reference Range Interpretation [...] NUCLEATED RBCS (test code = 0.00 K/UL 40299) COMPREHENSIVE METABOLIC [id number] 00:00:00 Test Item Value Reference Range Interpretation Comments GLUCOSE (test code = 2217) 137 MG/DL BUN (test code = 2208) 56 MG/DL CREATININE (test code = 2214) 10.21 MG/DL eGFR AMER. (test code = 6 ML/MIN/1.73 47159) eGFR NON- AMER. (test 5 ML/MIN/1.73 code = 08448) CALC BUN/CREAT (test code = 5 RATIO [...] code = 2219) 16 U/L COMPREHENSIVE METABOLIC [id number] 00:00:00 Test Item Value Reference Range Interpretation Comments GLUCOSE (test code = 2217) 137 MG/DL BUN (test code = 2208) 56 MG/DL CREATININE (test code = 2214) 10.21 MG/DL eGFR AMER. (test code = 6 ML/MIN/1.73 71160) eGFR NON- AMER. (test 5 ML/MIN/1.73 code = 75854) CALC BUN/CREAT (test code = 5 RATIO [...] ALT (test code = 2219) 16 U/L [id number] 00:00:00 Test Item Value Reference Range Interpretation Comments TSH, THIRD GENERATION (test >100.000 UIU/ML code = 2821) [id number] 00:00:00 Test Item Value Reference Range Interpretation Comments TSH, THIRD GENERATION (test >100.000 UIU/ML code = 2821) [id number] 00:00:00 Test Item Value Reference Range Interpretation Comments TSH, THIRD GENERATION (test >100.000 UIU/ML code = 2821) LIPID [id number] 00:00:00 Test Item Value Reference Range Interpretation Comments CHOLESTEROL (test code = 2210) 308 MG/DL TRIGLYCERIDES (test code = 2232) 280 MG/DL HDL CHOLESTEROL (test code = 2220) 66 MG/DL CALC LDL CHOL (test code = 2237) 192 MG/DL RISK RATIO LDL/HDL (test code = 2.91 RATIO 2238) LIPID [id number] 00:00:00 Test Item Value Reference Range Interpretation Comments CHOLESTEROL (test code = 2210) 308 MG/DL TRIGLYCERIDES (test code = 2232) 280 MG/DL HDL CHOLESTEROL (test code = 2220) 66 MG/DL CALC LDL CHOL (test code = 2237) 192 MG/DL RISK RATIO LDL/HDL (test code = 2.91 RATIO 2238) CBC W/AUTO [id number] 00:00:00 Test Item Value Reference Range Interpretation [...] NUCLEATED RBCS (test code = 0.00 K/UL 03149) CBC W/AUTO [id number] 00:00:00 Test Item Value Reference Range Interpretation [...] NUCLEATED RBCS (test code = 0.00 K/UL 27240) CBC W/AUTO [id number] 00:00:00 Test Item Value Reference Range Interpretation [...] NUCLEATED RBCS (test code = 0.00 K/UL 02757) COMPREHENSIVE METABOLIC [id number] 00:00:00 Test Item Value Reference Range Interpretation Comments GLUCOSE (test code = 2217) 137 MG/DL BUN (test code = 2208) 56 MG/DL CREATININE (test code = 2214) 10.21 MG/DL eGFR AMER. (test code = 6 ML/MIN/1.73 84430) eGFR NON- AMER. (test 5 ML/MIN/1.73 code = 69472) CALC BUN/CREAT (test code = 5 RATIO [...] code = 2219) 16 U/L COMPREHENSIVE METABOLIC [id number] 00:00:00 Test Item Value Reference Range Interpretation Comments GLUCOSE (test code = 2217) 137 MG/DL BUN (test code = 2208) 56 MG/DL CREATININE (test code = 2214) 10.21 MG/DL eGFR AMER. (test code = 6 ML/MIN/1.73 17767) eGFR NON- AMER. (test 5 ML/MIN/1.73 code = 38176) CALC BUN/CREAT (test code = 5 RATIO [...] (test code = 2219) 16 U/L HEMOGLOBIN [id number] 00:00:00 Test Item Value Reference Range Interpretation Comments HEMOGLOBIN A1c (test code = 71210) 5.5 % HEMOGLOBIN [id number] 00:00:00 Test Item Value Reference Range Interpretation Comments HEMOGLOBIN A1c (test code = 40185) 5.5 % HEMOGLOBIN [id number] 00:00:00 Test Item Value Reference Range Interpretation Comments HEMOGLOBIN A1c (test code = 09302) 5.5 % [id number] 00:00:00 Test Item Value Reference Range Interpretation Comments TSH, THIRD GENERATION (test >100.000 UIU/ML code = 2821) [id number] 00:00:00 Test Item Value Reference Range Interpretation Comments TSH, THIRD GENERATION (test >100.000 UIU/ML code = 2821) [id number] 00:00:00 Test Item Value Reference Range Interpretation Comments TSH, THIRD GENERATION (test >100.000 UIU/ML code = 2821) HEMOGLOBIN [id number] 00:00:00 Test Item Value Reference Range Interpretation Comments HEMOGLOBIN A1c (test code = 82062) 5.5 % HEMOGLOBIN [id number] 00:00:00 Test Item Value Reference Range Interpretation Comments HEMOGLOBIN A1c (test code = 14066) 5.5 % HEMOGLOBIN [id number] 00:00:00 Test Item Value Reference Range Interpretation Comments HEMOGLOBIN A1c (test code = 98249) 5.5 % [id number] 00:00:00 Test Item Value Reference Range Interpretation Comments TSH, THIRD GENERATION (test >100.000 UIU/ML code = 2821) [id number] 00:00:00 Test Item Value Reference Range Interpretation Comments TSH, THIRD GENERATION (test >100.000 UIU/ML code = 2821) [id number] 00:00:00 Test Item Value Reference Range Interpretation Comments TSH, THIRD GENERATION (test >100.000 UIU/ML code = 2821) HEMOGLOBIN [id number] 00:00:00 Test Item Value Reference Range Interpretation Comments HEMOGLOBIN A1c (test code = 21641) 5.5 % HEMOGLOBIN [id number] 00:00:00 Test Item Value Reference Range Interpretation Comments HEMOGLOBIN A1c (test code = 03024) 5.5 % HEMOGLOBIN [id number] 00:00:00 Test Item Value Reference Range Interpretation Comments HEMOGLOBIN A1c (test code = 87889) 5.5 % HEMOGLOBIN [id number] 00:00:00 Test Item Value Reference Range Interpretation Comments HEMOGLOBIN A1c (test code = 30164) 5.5 % HEMOGLOBIN [id number] 00:00:00 Test Item Value Reference Range Interpretation Comments HEMOGLOBIN A1c (test code = 51179) 5.5 % [id number] 00:00:00 Test Item Value Reference Range Interpretation Comments TSH, THIRD GENERATION (test >100.000 UIU/ML code = 2821) [id number] 00:00:00 Test Item Value Reference Range Interpretation Comments TSH, THIRD GENERATION (test >100.000 UIU/ML code = 2821) [id number] 00:00:00 Test Item Value Reference Range Interpretation Comments TSH, THIRD GENERATION (test >100.000 UIU/ML code = 2821) [id number] 00:00:00 Test Item Value Reference Range Interpretation Comments TSH, THIRD GENERATION (test >100.000 UIU/ML code = 2821) [id number] 00:00:00 Test Item Value Reference Range Interpretation Comments TSH, THIRD GENERATION (test >100.000 UIU/ML code = 2821) HEMOGLOBIN [id number] 00:00:00 Test Item Value Reference Range Interpretation Comments HEMOGLOBIN A1c (test code = 86117) 5.5 % HEMOGLOBIN [id number] 00:00:00 Test Item Value Reference Range Interpretation Comments HEMOGLOBIN A1c (test code = 82236) 5.5 % HEMOGLOBIN [id number] 00:00:00 Test Item Value Reference Range Interpretation Comments HEMOGLOBIN A1c (test code = 40988) 5.5 % [id number] 00:00:00 Test Item Value Reference Range Interpretation Comments TSH, THIRD GENERATION (test >100.000 UIU/ML code = 2821) [id number] 00:00:00 Test Item Value Reference Range Interpretation Comments TSH, THIRD GENERATION (test >100.000 UIU/ML code = 2821) [id number] 00:00:00 Test Item Value Reference Range Interpretation Comments TSH, THIRD GENERATION (test >100.000 UIU/ML code = 2821) HEMOGLOBIN [id number] 00:00:00 Test Item Value Reference Range Interpretation Comments HEMOGLOBIN A1c (test code = 65815) 5.5 % HEMOGLOBIN [id number] 00:00:00 Test Item Value Reference Range Interpretation Comments HEMOGLOBIN A1c (test code = 53365) 5.5 % HEMOGLOBIN [id number] 00:00:00 Test Item Value Reference Range Interpretation Comments HEMOGLOBIN A1c (test code = 18802) 5.5 % [id number] 00:00:00 Test Item Value Reference Range Interpretation Comments TSH, THIRD GENERATION (test >100.000 UIU/ML code = 2821) [id number] 00:00:00 Test Item Value Reference Range Interpretation Comments TSH, THIRD GENERATION (test >100.000 UIU/ML code = 2821) [id number] 00:00:00 Test Item Value Reference Range Interpretation Comments TSH, THIRD GENERATION (test >100.000 UIU/ML code = 2821) HEMOGLOBIN [id number] 00:00:00 Test Item Value Reference Range Interpretation Comments HEMOGLOBIN A1c (test code = 31669) 5.5 % HEMOGLOBIN [id number] 00:00:00 Test Item Value Reference Range Interpretation Comments HEMOGLOBIN A1c (test code = 25936) 5.5 % HEMOGLOBIN [id number] 00:00:00 Test Item Value Reference Range Interpretation Comments HEMOGLOBIN A1c (test code = 19898) 5.5 % [id number] 00:00:00 Test Item Value Reference Range Interpretation Comments TSH, THIRD GENERATION (test >100.000 UIU/ML code = 2821) [id number] 00:00:00 Test Item Value Reference Range Interpretation Comments TSH, THIRD GENERATION (test >100.000 UIU/ML code = 2821) [id number] 00:00:00 Test Item Value Reference Range Interpretation Comments TSH, THIRD GENERATION (test >100.000 UIU/ML code = 2821) HEMOGLOBIN [id number] 00:00:00 Test Item Value Reference Range Interpretation Comments HEMOGLOBIN A1c (test code = 56878) 5.5 % HEMOGLOBIN [id number] 00:00:00 Test Item Value Reference Range Interpretation Comments HEMOGLOBIN A1c (test code = 57771) 5.5 % HEMOGLOBIN [id number] 00:00:00 Test Item Value Reference Range Interpretation Comments HEMOGLOBIN A1c (test code = 31704) 5.5 % [id number] 00:00:00 Test Item Value Reference Range Interpretation Comments TSH, THIRD GENERATION (test >100.000 UIU/ML code = 2821) [id number] 00:00:00 Test Item Value Reference Range Interpretation Comments TSH, THIRD GENERATION (test >100.000 UIU/ML code = 2821) [id number] 00:00:00 Test Item Value Reference Range Interpretation Comments TSH, THIRD GENERATION (test >100.000 UIU/ML code = 2821) CBC W/AUTO [id number] 00:00:00 Test Item Value Reference Range Interpretation [...] code = 1015) 298 K/UL CBC W/AUTO [id number] 00:00:00 Test Item Value Reference Range Interpretation [...] code = 1015) 298 K/UL CBC W/AUTO [id number] 00:00:00 Test Item Value Reference Range Interpretation [...] code = 1015) 298 K/UL COMPREHENSIVE METABOLIC [id number] 00:00:00 Test Item Value Reference Range Interpretation Comments GLUCOSE (test code = 2217) 228 MG/DL BUN (test code = 2208) 23 MG/DL CREATININE (test code = 2214) 5.99 MG/DL eGFR AMER. (test code 11 ML/MIN/1.73 = 79278) eGFR NON- AMER. (test 10 ML/MIN/1.73 code = 27758) CALC BUN/CREAT (test code = 4 RATIO [...] code = 2219) 24 U/L COMPREHENSIVE METABOLIC [id number] 00:00:00 Test Item Value Reference Range Interpretation Comments GLUCOSE (test code = 2217) 228 MG/DL BUN (test code = 2208) 23 MG/DL CREATININE (test code = 2214) 5.99 MG/DL eGFR AMER. (test code 11 ML/MIN/1.73 = 06429) eGFR NON- AMER. (test 10 ML/MIN/1.73 code = 98466) CALC BUN/CREAT (test code = 4 RATIO [...] (test code = 2219) 24 U/L LIPID [id number] 00:00:00 Test Item Value Reference Range Interpretation Comments CHOLESTEROL (test code = 2210) 335 MG/DL TRIGLYCERIDES (test code = 2232) 446 MG/DL HDL CHOLESTEROL (test code = 73 MG/DL 2220) CALC LDL CHOL (test code = 2237) (NOTE) MG/DL RISK RATIO LDL/HDL (test code = (NOTE) RATIO 2238) LIPID [id number] 00:00:00 Test Item Value Reference Range Interpretation Comments CHOLESTEROL (test code = 2210) 335 MG/DL TRIGLYCERIDES (test code = 2232) 446 MG/DL HDL CHOLESTEROL (test code = 73 MG/DL 2220) CALC LDL CHOL (test code = 2237) (NOTE) MG/DL RISK RATIO LDL/HDL (test code = (NOTE) RATIO 2238) [id number] 00:00:00 Test Item Value Reference Range Interpretation Comments TSH, THIRD GENERATION (test >100.000 UIU/ML code = 2821) [id number] 00:00:00 Test Item Value Reference Range Interpretation Comments TSH, THIRD GENERATION (test >100.000 UIU/ML code = 2821) [id number] 00:00:00 Test Item Value Reference Range Interpretation Comments TSH, THIRD GENERATION (test >100.000 UIU/ML code = 2821) CBC W/AUTO [id number] 00:00:00 Test Item Value Reference Range Interpretation [...] code = 1015) 298 K/UL CBC W/AUTO [id number] 00:00:00 Test Item Value Reference Range Interpretation [...] code = 1015) 298 K/UL CBC W/AUTO [id number] 00:00:00 Test Item Value Reference Range Interpretation [...] code = 1015) 298 K/UL COMPREHENSIVE METABOLIC [id number] 00:00:00 Test Item Value Reference Range Interpretation Comments GLUCOSE (test code = 2217) 228 MG/DL BUN (test code = 2208) 23 MG/DL CREATININE (test code = 2214) 5.99 MG/DL eGFR AMER. (test code 11 ML/MIN/1.73 = 35270) eGFR NON- AMER. (test 10 ML/MIN/1.73 code = 25744) CALC BUN/CREAT (test code = 4 RATIO [...] code = 2219) 24 U/L COMPREHENSIVE METABOLIC [id number] 00:00:00 Test Item Value Reference Range Interpretation Comments GLUCOSE (test code = 2217) 228 MG/DL BUN (test code = 2208) 23 MG/DL CREATININE (test code = 2214) 5.99 MG/DL eGFR AMER. (test code 11 ML/MIN/1.73 = 66438) eGFR NON- AMER. (test 10 ML/MIN/1.73 code = 66366) CALC BUN/CREAT (test code = 4 RATIO [...] (test code = 2219) 24 U/L LIPID [id number] 00:00:00 Test Item Value Reference Range Interpretation Comments CHOLESTEROL (test code = 2210) 335 MG/DL TRIGLYCERIDES (test code = 2232) 446 MG/DL HDL CHOLESTEROL (test code = 73 MG/DL 2220) CALC LDL CHOL (test code = 2237) (NOTE) MG/DL RISK RATIO LDL/HDL (test code = (NOTE) RATIO 2238) LIPID [id number] 00:00:00 Test Item Value Reference Range Interpretation Comments CHOLESTEROL (test code = 2210) 335 MG/DL TRIGLYCERIDES (test code = 2232) 446 MG/DL HDL CHOLESTEROL (test code = 73 MG/DL 2220) CALC LDL CHOL (test code = 2237) (NOTE) MG/DL RISK RATIO LDL/HDL (test code = (NOTE) RATIO 2238) [id number] 00:00:00 Test Item Value Reference Range Interpretation Comments TSH, THIRD GENERATION (test >100.000 UIU/ML code = 2821) [id number] 00:00:00 Test Item Value Reference Range Interpretation Comments TSH, THIRD GENERATION (test >100.000 UIU/ML code = 2821) [id number] 00:00:00 Test Item Value Reference Range Interpretation Comments TSH, THIRD GENERATION (test >100.000 UIU/ML code = 2821) CBC W/AUTO [id number] 00:00:00 Test Item Value Reference Range Interpretation [...] code = 1015) 298 K/UL CBC W/AUTO [id number] 00:00:00 Test Item Value Reference Range Interpretation [...] code = 1015) 298 K/UL CBC W/AUTO [id number] 00:00:00 Test Item Value Reference Range Interpretation [...] code = 1015) 298 K/UL CBC W/AUTO [id number] 00:00:00 Test Item Value Reference Range Interpretation [...] code = 1015) 298 K/UL CBC W/AUTO [id number] 00:00:00 Test Item Value Reference Range Interpretation [...] code = 1015) 298 K/UL COMPREHENSIVE METABOLIC [id number] 00:00:00 Test Item Value Reference Range Interpretation Comments GLUCOSE (test code = 2217) 228 MG/DL BUN (test code = 2208) 23 MG/DL CREATININE (test code = 2214) 5.99 MG/DL eGFR AMER. (test code 11 ML/MIN/1.73 = 80636) eGFR NON- AMER. (test 10 ML/MIN/1.73 code = 54933) CALC BUN/CREAT (test code = 4 RATIO [...] code = 2219) 24 U/L COMPREHENSIVE METABOLIC [id number] 00:00:00 Test Item Value Reference Range Interpretation Comments GLUCOSE (test code = 2217) 228 MG/DL BUN (test code = 2208) 23 MG/DL CREATININE (test code = 2214) 5.99 MG/DL eGFR AMER. (test code 11 ML/MIN/1.73 = 14639) eGFR NON- AMER. (test 10 ML/MIN/1.73 code = 07867) CALC BUN/CREAT (test code = 4 RATIO [...] (test code = 2219) 24 U/L LIPID [id number] 00:00:00 Test Item Value Reference Range Interpretation Comments CHOLESTEROL (test code = 2210) 335 MG/DL TRIGLYCERIDES (test code = 2232) 446 MG/DL HDL CHOLESTEROL (test code = 73 MG/DL 2220) CALC LDL CHOL (test code = 2237) (NOTE) MG/DL RISK RATIO LDL/HDL (test code = (NOTE) RATIO 2238) LIPID [id number] 00:00:00 Test Item Value Reference Range Interpretation Comments CHOLESTEROL (test code = 2210) 335 MG/DL TRIGLYCERIDES (test code = 2232) 446 MG/DL HDL CHOLESTEROL (test code = 73 MG/DL 2220) CALC LDL CHOL (test code = 2237) (NOTE) MG/DL RISK RATIO LDL/HDL (test code = (NOTE) RATIO 2238) [id number] 00:00:00 Test Item Value Reference Range Interpretation Comments TSH, THIRD GENERATION (test >100.000 UIU/ML code = 2821) [id number] 00:00:00 Test Item Value Reference Range Interpretation Comments TSH, THIRD GENERATION (test >100.000 UIU/ML code = 2821) [id number] 00:00:00 Test Item Value Reference Range Interpretation Comments TSH, THIRD GENERATION (test >100.000 UIU/ML code = 2821) COMPREHENSIVE METABOLIC [id number] 00:00:00 Test Item Value Reference Range Interpretation Comments GLUCOSE (test code = 2217) 228 MG/DL BUN (test code = 2208) 23 MG/DL CREATININE (test code = 2214) 5.99 MG/DL eGFR AMER. (test code 11 ML/MIN/1.73 = 45652) eGFR NON- AMER. (test 10 ML/MIN/1.73 code = 28867) CALC BUN/CREAT (test code = 4 RATIO [...] (test code = 2219) 24 U/L LIPID [id number] 00:00:00 Test Item Value Reference Range Interpretation Comments CHOLESTEROL (test code = 2210) 335 MG/DL TRIGLYCERIDES (test code = 2232) 446 MG/DL HDL CHOLESTEROL (test code = 73 MG/DL 2219) CALC LDL CHOL (test code = 2237) (NOTE) MG/DL RISK RATIO LDL/HDL (test code = (NOTE) RATIO 2238) [id number] 00:00:00 Test Item Value Reference Range Interpretation Comments TSH, THIRD GENERATION (test >100.000 UIU/ML code = 2821) [id number] 00:00:00 Test Item Value Reference Range Interpretation Comments TSH, THIRD GENERATION (test >100.000 UIU/ML code = 2821) CBC W/AUTO [id number] 00:00:00 Test Item Value Reference Range Interpretation [...] code = 1015) 298 K/UL CBC W/AUTO [id number] 00:00:00 Test Item Value Reference Range Interpretation [...] code = 1015) 298 K/UL CBC W/AUTO [id number] 00:00:00 Test Item Value Reference Range Interpretation [...] code = 1015) 298 K/UL COMPREHENSIVE METABOLIC [id number] 00:00:00 Test Item Value Reference Range Interpretation Comments GLUCOSE (test code = 2217) 228 MG/DL BUN (test code = 2208) 23 MG/DL CREATININE (test code = 2214) 5.99 MG/DL eGFR AMER. (test code 11 ML/MIN/1.73 = 46544) eGFR NON- AMER. (test 10 ML/MIN/1.73 code = 64539) CALC BUN/CREAT (test code = 4 RATIO [...] code = 2219) 24 U/L COMPREHENSIVE METABOLIC [id number] 00:00:00 Test Item Value Reference Range Interpretation Comments GLUCOSE (test code = 2217) 228 MG/DL BUN (test code = 2208) 23 MG/DL CREATININE (test code = 2214) 5.99 MG/DL eGFR AMER. (test code 11 ML/MIN/1.73 = 43056) eGFR NON- AMER. (test 10 ML/MIN/1.73 code = 76526) CALC BUN/CREAT (test code = 4 RATIO [...] (test code = 2219) 24 U/L LIPID [id number] 00:00:00 Test Item Value Reference Range Interpretation Comments CHOLESTEROL (test code = 2210) 335 MG/DL TRIGLYCERIDES (test code = 2232) 446 MG/DL HDL CHOLESTEROL (test code = 73 MG/DL 2220) CALC LDL CHOL (test code = 2237) (NOTE) MG/DL RISK RATIO LDL/HDL (test code = (NOTE) RATIO 2238) LIPID [id number] 00:00:00 Test Item Value Reference Range Interpretation Comments CHOLESTEROL (test code = 2210) 335 MG/DL TRIGLYCERIDES (test code = 2232) 446 MG/DL HDL CHOLESTEROL (test code = 73 MG/DL 2220) CALC LDL CHOL (test code = 2237) (NOTE) MG/DL RISK RATIO LDL/HDL (test code = (NOTE) RATIO 2238) [id number] 00:00:00 Test Item Value Reference Range Interpretation Comments TSH, THIRD GENERATION (test >100.000 UIU/ML code = 2821) [id number] 00:00:00 Test Item Value Reference Range Interpretation Comments TSH, THIRD GENERATION (test >100.000 UIU/ML code = 2821) [id number] 00:00:00 Test Item Value Reference Range Interpretation Comments TSH, THIRD GENERATION (test >100.000 UIU/ML code = 2821) CBC W/AUTO [id number] 00:00:00 Test Item Value Reference Range Interpretation [...] code = 1015) 298 K/UL CBC W/AUTO [id number] 00:00:00 Test Item Value Reference Range Interpretation [...] code = 1015) 298 K/UL CBC W/AUTO [id number] 00:00:00 Test Item Value Reference Range Interpretation [...] code = 1015) 298 K/UL COMPREHENSIVE METABOLIC [id number] 00:00:00 Test Item Value Reference Range Interpretation Comments GLUCOSE (test code = 2217) 228 MG/DL BUN (test code = 2208) 23 MG/DL CREATININE (test code = 2214) 5.99 MG/DL eGFR AMER. (test code 11 ML/MIN/1.73 = 96999) eGFR NON- AMER. (test 10 ML/MIN/1.73 code = 70916) CALC BUN/CREAT (test code = 4 RATIO [...] code = 2219) 24 U/L COMPREHENSIVE METABOLIC [id number] 00:00:00 Test Item Value Reference Range Interpretation Comments GLUCOSE (test code = 2217) 228 MG/DL BUN (test code = 2208) 23 MG/DL CREATININE (test code = 2214) 5.99 MG/DL eGFR AMER. (test code 11 ML/MIN/1.73 = 79723) eGFR NON- AMER. (test 10 ML/MIN/1.73 code = 66057) CALC BUN/CREAT (test code = 4 RATIO [...] (test code = 2219) 24 U/L LIPID [id number] 00:00:00 Test Item Value Reference Range Interpretation Comments CHOLESTEROL (test code = 2210) 335 MG/DL TRIGLYCERIDES (test code = 2232) 446 MG/DL HDL CHOLESTEROL (test code = 73 MG/DL 2220) CALC LDL CHOL (test code = 2237) (NOTE) MG/DL RISK RATIO LDL/HDL (test code = (NOTE) RATIO 2238) LIPID [id number] 00:00:00 Test Item Value Reference Range Interpretation Comments CHOLESTEROL (test code = 2210) 335 MG/DL TRIGLYCERIDES (test code = 2232) 446 MG/DL HDL CHOLESTEROL (test code = 73 MG/DL 2220) CALC LDL CHOL (test code = 2237) (NOTE) MG/DL RISK RATIO LDL/HDL (test code = (NOTE) RATIO 2238) [id number] 00:00:00 Test Item Value Reference Range Interpretation Comments TSH, THIRD GENERATION (test >100.000 UIU/ML code = 2821) [id number] 00:00:00 Test Item Value Reference Range Interpretation Comments TSH, THIRD GENERATION (test >100.000 UIU/ML code = 2821) [id number] 00:00:00 Test Item Value Reference Range Interpretation Comments TSH, THIRD GENERATION (test >100.000 UIU/ML code = 2821) CBC W/AUTO [id number] 00:00:00 Test Item Value Reference Range Interpretation [...] code = 1015) 298 K/UL CBC W/AUTO [id number] 00:00:00 Test Item Value Reference Range Interpretation [...] code = 1015) 298 K/UL CBC W/AUTO [id number] 00:00:00 Test Item Value Reference Range Interpretation [...] code = 1015) 298 K/UL COMPREHENSIVE METABOLIC [id number] 00:00:00 Test Item Value Reference Range Interpretation Comments GLUCOSE (test code = 2217) 228 MG/DL BUN (test code = 2208) 23 MG/DL CREATININE (test code = 2214) 5.99 MG/DL eGFR AMER. (test code 11 ML/MIN/1.73 = 87731) eGFR NON- AMER. (test 10 ML/MIN/1.73 code = 22180) CALC BUN/CREAT (test code = 4 RATIO [...] code = 2219) 24 U/L COMPREHENSIVE METABOLIC [id number] 00:00:00 Test Item Value Reference Range Interpretation Comments GLUCOSE (test code = 2217) 228 MG/DL BUN (test code = 2208) 23 MG/DL CREATININE (test code = 2214) 5.99 MG/DL eGFR AMER. (test code 11 ML/MIN/1.73 = 19816) eGFR NON- AMER. (test 10 ML/MIN/1.73 code = 33499) CALC BUN/CREAT (test code = 4 RATIO 2235) SODIUM (test code = 2231) 137 MEQ/L POTASSIUM (test code = 2228) 3.7 MEQ/L CHLORIDE (test code = 2215) 91 MEQ/L CARBON DIOXIDE (test code = 29 MEQ/L 2206) CALCIUM (test code = 2209) 9.7 MG/DL PROTEIN, TOTAL (test code = 8.5 G/DL 9) ALBUMIN (test code = 2201) 5.3 G/DL CALC GLOBULIN (test code = 3.2 G/DL 2240) CALC A/G RATIO (test code = 1.7 RATIO 2234) BILIRUBIN, TOTAL (test code = 0.3 MG/DL 2206) ALKALINE PHOSPHATASE (test 66 U/L code = 2204) AST (test code = 2218) 22 U/L ALT (test code = 2219) 24 U/L LIPID [id number] 00:00:00 Test Item Value Reference Range Interpretation Comments CHOLESTEROL (test code = 2210) 335 MG/DL TRIGLYCERIDES (test code = 2232) 446 MG/DL HDL CHOLESTEROL (test code = 73 MG/DL 2220) CALC LDL CHOL (test code = 2237) (NOTE) MG/DL RISK RATIO LDL/HDL (test code = (NOTE) RATIO 2238) LIPID [id number] 00:00:00 Test Item Value Reference Range Interpretation Comments CHOLESTEROL (test code = 2210) 335 MG/DL TRIGLYCERIDES (test code = 2232) 446 MG/DL HDL CHOLESTEROL (test code = 73 MG/DL 2220) CALC LDL CHOL (test code = 2237) (NOTE) MG/DL RISK RATIO LDL/HDL (test code = (NOTE) RATIO 2238) [id number] 00:00:00 Test Item Value Reference Range Interpretation Comments TSH, THIRD GENERATION (test >100.000 UIU/ML code = 2821) [id number] 00:00:00 Test Item Value Reference Range Interpretation Comments TSH, THIRD GENERATION (test >100.000 UIU/ML code = 2821) [id number] 00:00:00 Test Item Value Reference Range Interpretation Comments TSH, THIRD GENERATION (test >100.000 UIU/ML code = 2821) CBC W/AUTO [id number] 00:00:00 Test Item Value Reference Range Interpretation [...] code = 1015) 298 K/UL CBC W/AUTO [id number] 00:00:00 Test Item Value Reference Range Interpretation [...] code = 1015) 298 K/UL CBC W/AUTO [id number] 00:00:00 Test Item Value Reference Range Interpretation [...] code = 1015) 298 K/UL COMPREHENSIVE METABOLIC [id number] 00:00:00 Test Item Value Reference Range Interpretation Comments GLUCOSE (test code = 2217) 228 MG/DL BUN (test code = 2208) 23 MG/DL CREATININE (test code = 2214) 5.99 MG/DL eGFR AMER. (test code 11 ML/MIN/1.73 = 00587) eGFR NON- AMER. (test 10 ML/MIN/1.73 code = 14997) CALC BUN/CREAT (test code = 4 RATIO [...] code = 2219) 24 U/L COMPREHENSIVE METABOLIC [id number] 00:00:00 Test Item Value Reference Range Interpretation Comments GLUCOSE (test code = 2217) 228 MG/DL BUN (test code = 2208) 23 MG/DL CREATININE (test code = 2214) 5.99 MG/DL eGFR AMER. (test code 11 ML/MIN/1.73 = 08070) eGFR NON- AMER. (test 10 ML/MIN/1.73 code = 03112) CALC BUN/CREAT (test code = 4 RATIO [...] (test code = 2219) 24 U/L LIPID [id number] 00:00:00 Test Item Value Reference Range Interpretation Comments CHOLESTEROL (test code = 2210) 335 MG/DL TRIGLYCERIDES (test code = 2232) 446 MG/DL HDL CHOLESTEROL (test code = 73 MG/DL 2220) CALC LDL CHOL (test code = 2237) (NOTE) MG/DL RISK RATIO LDL/HDL (test code = (NOTE) RATIO 2238) LIPID [id number] 00:00:00 Test Item Value Reference Range Interpretation Comments CHOLESTEROL (test code = 2210) 335 MG/DL TRIGLYCERIDES (test code = 2232) 446 MG/DL HDL CHOLESTEROL (test code = 73 MG/DL 2220) CALC LDL CHOL (test code = 2237) (NOTE) MG/DL RISK RATIO LDL/HDL (test code = (NOTE) RATIO 2238) [id number] 00:00:00 Test Item Value Reference Range Interpretation Comments TSH, THIRD GENERATION (test >100.000 UIU/ML code = 2821) [id number] 00:00:00 Test Item Value Reference Range Interpretation Comments TSH, THIRD GENERATION (test >100.000 UIU/ML code = 2821) [id number] 00:00:00 Test Item Value Reference Range Interpretation Comments TSH, THIRD GENERATION (test >100.000 UIU/ML code = 2821) [id number] 00:00:00 Test Item Value Reference Range Interpretation Comments TSH, THIRD GENERATION (test >100.000 UIU/ML code = 2821) [id number] 00:00:00 Test Item Value Reference Range Interpretation Comments TSH, THIRD GENERATION (test >100.000 UIU/ML code = 2821) [id number] 00:00:00 Test Item Value Reference Range Interpretation Comments TSH, THIRD GENERATION (test >100.000 UIU/ML code = 2821) LIPID [id number] 00:00:00 Test Item Value Reference Range Interpretation Comments CHOLESTEROL (test code = 2210) 316 MG/DL TRIGLYCERIDES (test code = 2232) 547 MG/DL HDL CHOLESTEROL (test code = 54 MG/DL 2220) CALC LDL CHOL (test code = 2237) (NOTE) MG/DL RISK RATIO LDL/HDL (test code = (NOTE) RATIO 2238) LIPID [id number] 00:00:00 Test Item Value Reference Range Interpretation Comments CHOLESTEROL (test code = 2210) 316 MG/DL TRIGLYCERIDES (test code = 2232) 547 MG/DL HDL CHOLESTEROL (test code = 54 MG/DL 2220) CALC LDL CHOL (test code = 2237) (NOTE) MG/DL RISK RATIO LDL/HDL (test code = (NOTE) RATIO 2238) [id number] 00:00:00 Test Item Value Reference Range Interpretation Comments TSH, THIRD GENERATION (test >100.000 UIU/ML code = 2821) [id number] 00:00:00 Test Item Value Reference Range Interpretation Comments TSH, THIRD GENERATION (test >100.000 UIU/ML code = 2821) [id number] 00:00:00 Test Item Value Reference Range Interpretation Comments TSH, THIRD GENERATION (test >100.000 UIU/ML code = 2821) LIPID [id number] 00:00:00 Test Item Value Reference Range Interpretation Comments CHOLESTEROL (test code = 2210) 316 MG/DL TRIGLYCERIDES (test code = 2232) 547 MG/DL HDL CHOLESTEROL (test code = 54 MG/DL 2220) CALC LDL CHOL (test code = 2237) (NOTE) MG/DL RISK RATIO LDL/HDL (test code = (NOTE) RATIO 2238) LIPID [id number] 00:00:00 Test Item Value Reference Range Interpretation Comments CHOLESTEROL (test code = 2210) 316 MG/DL TRIGLYCERIDES (test code = 2232) 547 MG/DL HDL CHOLESTEROL (test code = 54 MG/DL 2220) CALC LDL CHOL (test code = 2237) (NOTE) MG/DL RISK RATIO LDL/HDL (test code = (NOTE) RATIO 2238) [id number] 00:00:00 Test Item Value Reference Range Interpretation Comments TSH, THIRD GENERATION (test >100.000 UIU/ML code = 2821) [id number] 00:00:00 Test Item Value Reference Range Interpretation Comments TSH, THIRD GENERATION (test >100.000 UIU/ML code = 2821) [id number] 00:00:00 Test Item Value Reference Range Interpretation Comments TSH, THIRD GENERATION (test >100.000 UIU/ML code = 2821) [id number] 00:00:00 Test Item Value Reference Range Interpretation Comments TSH, THIRD GENERATION (test >100.000 UIU/ML code = 2821) LIPID [id number] 00:00:00 Test Item Value Reference Range Interpretation Comments CHOLESTEROL (test code = 2210) 316 MG/DL TRIGLYCERIDES (test code = 2232) 547 MG/DL HDL CHOLESTEROL (test code = 54 MG/DL 2220) CALC LDL CHOL (test code = 2237) (NOTE) MG/DL RISK RATIO LDL/HDL (test code = (NOTE) RATIO 2238) LIPID [id number] 00:00:00 Test Item Value Reference Range Interpretation Comments CHOLESTEROL (test code = 2210) 316 MG/DL TRIGLYCERIDES (test code = 2232) 547 MG/DL HDL CHOLESTEROL (test code = 54 MG/DL 2220) CALC LDL CHOL (test code = 2237) (NOTE) MG/DL RISK RATIO LDL/HDL (test code = (NOTE) RATIO 2238) [id number] 00:00:00 Test Item Value Reference Range Interpretation Comments TSH, THIRD GENERATION (test >100.000 UIU/ML code = 2821) LIPID [id number] 00:00:00 Test Item Value Reference Range Interpretation Comments CHOLESTEROL (test code = 2210) 316 MG/DL TRIGLYCERIDES (test code = 2232) 547 MG/DL HDL CHOLESTEROL (test code = 54 MG/DL 2220) CALC LDL CHOL (test code = 2237) (NOTE) MG/DL RISK RATIO LDL/HDL (test code = (NOTE) RATIO 2238) [id number] 00:00:00 Test Item Value Reference Range Interpretation Comments TSH, THIRD GENERATION (test >100.000 UIU/ML code = 2821) [id number] 00:00:00 Test Item Value Reference Range Interpretation Comments TSH, THIRD GENERATION (test >100.000 UIU/ML code = 2821) [id number] 00:00:00 Test Item Value Reference Range Interpretation Comments TSH, THIRD GENERATION (test >100.000 UIU/ML code = 2821) LIPID [id number] 00:00:00 Test Item Value Reference Range Interpretation Comments CHOLESTEROL (test code = 2210) 316 MG/DL TRIGLYCERIDES (test code = 2232) 547 MG/DL HDL CHOLESTEROL (test code = 54 MG/DL 2220) CALC LDL CHOL (test code = 2237) (NOTE) MG/DL RISK RATIO LDL/HDL (test code = (NOTE) RATIO 2238) LIPID [id number] 00:00:00 Test Item Value Reference Range Interpretation Comments CHOLESTEROL (test code = 2210) 316 MG/DL TRIGLYCERIDES (test code = 2232) 547 MG/DL HDL CHOLESTEROL (test code = 54 MG/DL 2220) CALC LDL CHOL (test code = 2237) (NOTE) MG/DL RISK RATIO LDL/HDL (test code = (NOTE) RATIO 2238) [id number] 00:00:00 Test Item Value Reference Range Interpretation Comments TSH, THIRD GENERATION (test >100.000 UIU/ML code = 2821) [id number] 00:00:00 Test Item Value Reference Range Interpretation Comments TSH, THIRD GENERATION (test >100.000 UIU/ML code = 2821) [id number] 00:00:00 Test Item Value Reference Range Interpretation Comments TSH, THIRD GENERATION (test >100.000 UIU/ML code = 2821) LIPID [id number] 00:00:00 Test Item Value Reference Range Interpretation Comments CHOLESTEROL (test code = 2210) 316 MG/DL TRIGLYCERIDES (test code = 2232) 547 MG/DL HDL CHOLESTEROL (test code = 54 MG/DL 2220) CALC LDL CHOL (test code = 2237) (NOTE) MG/DL RISK RATIO LDL/HDL (test code = (NOTE) RATIO 2238) LIPID [id number] 00:00:00 Test Item Value Reference Range Interpretation Comments CHOLESTEROL (test code = 2210) 316 MG/DL TRIGLYCERIDES (test code = 2232) 547 MG/DL HDL CHOLESTEROL (test code = 54 MG/DL 2220) CALC LDL CHOL (test code = 2237) (NOTE) MG/DL RISK RATIO LDL/HDL (test code = (NOTE) RATIO 2238) [id number] 00:00:00 Test Item Value Reference Range Interpretation Comments TSH, THIRD GENERATION (test >100.000 UIU/ML code = 2821) [id number] 00:00:00 Test Item Value Reference Range Interpretation Comments TSH, THIRD GENERATION (test >100.000 UIU/ML code = 2821) [id number] 00:00:00 Test Item Value Reference Range Interpretation Comments TSH, THIRD GENERATION (test >100.000 UIU/ML code = 2821) LIPID [id number] 00:00:00 Test Item Value Reference Range Interpretation Comments CHOLESTEROL (test code = 2210) 316 MG/DL TRIGLYCERIDES (test code = 2232) 547 MG/DL HDL CHOLESTEROL (test code = 54 MG/DL 2220) CALC LDL CHOL (test code = 2237) (NOTE) MG/DL RISK RATIO LDL/HDL (test code = (NOTE) RATIO 2238) LIPID [id number] 00:00:00 Test Item Value Reference Range Interpretation Comments CHOLESTEROL (test code = 2210) 316 MG/DL TRIGLYCERIDES (test code = 2232) 547 MG/DL HDL CHOLESTEROL (test code = 54 MG/DL 2220) CALC LDL CHOL (test code = 2237) (NOTE) MG/DL RISK RATIO LDL/HDL (test code = (NOTE) RATIO 2238) [id number] 00:00:00 Test Item Value Reference Range Interpretation Comments TSH, THIRD GENERATION (test >100.000 UIU/ML code = 2821) [id number] 00:00:00 Test Item Value Reference Range Interpretation Comments TSH, THIRD GENERATION (test >100.000 UIU/ML code = 2821) [id number] 00:00:00 Test Item Value Reference Range Interpretation Comments TSH, THIRD GENERATION (test >100.000 UIU/ML code = 2821) LIPID [id number] 00:00:00 Test Item Value Reference Range Interpretation Comments CHOLESTEROL (test code = 2210) 316 MG/DL TRIGLYCERIDES (test code = 2232) 547 MG/DL HDL CHOLESTEROL (test code = 54 MG/DL 2220) CALC LDL CHOL (test code = 2237) (NOTE) MG/DL RISK RATIO LDL/HDL (test code = (NOTE) RATIO 2238) LIPID [id number] 00:00:00 Test Item Value Reference Range Interpretation [...] code = Normal 762) HEPATITIS B SURFACE [id number] 09:48:00 Test Item Value Reference Range Interpretation [...] (BEAKER) (test code = 1+ few 966) [id number] 05:55:00 Test Item Value Reference Range Interpretation Comments PHOSPHORUS (BEAKER) (test code = 9.2 mg/dL 2.3-4.7 HH 604) Soaping Department Supervisor ID - RA MBASIC METABOLIC [id number] 05:04:00 Test Item Value Reference Range Interpretation [...] S NOT APPLICABLE FOR DIALYSIS PATIEN TS. Soaping Department Supervisor ID - RA MCBC WITH PLATELET COUNT + MANUAL [id number] 04:42:00 Test Item Value Reference Range Interpretation [...] (BEAKER) (test code = 413) BASIC METABOLIC [id number] 03:00:00 Test Item Value Reference Range Interpretation [...] S NOT APPLICABLE FOR DIALYSIS PATIEN TS. Soaping Department Supervisor ID - RA [id number] 02:58:00 Test Item Value Reference Range Interpretation Comments PHOSPHORUS (BEAKER) (test code = 7.4 mg/dL 2.3-4.7 H 604) Soaping Department Supervisor ALEXANDER KNAPP MCBC W/PLT COUNT & AUTO [id number] 02:38:00 Test Item Value Reference Range Interpretation [...] PERCENT (BEAKER) (test code = 2801) SARS-COV2/RT-PCR ([facility])2019-12-14 11:10:00 Test Item Value Reference Range Interpretation Comments SARS-COV2/RT-PCR (test code Negative Not Detected, Negative, = 4016142) See external report for linked test SARS-COV-[address] [facility] (test code = 6842788) Negative results do not preclude SARS-CoV-2 infection [...] of the Act.Fact Sheet for Healthcare Pro viders:https://www.[employer]/Documents/Xpert%20Xpress%20SARS%20CoV-2/Fact%20Sh eets/302-0922%53PMAJ-HAC-4%20HEALTHCARE%20PROVIDERS%20FACT%20SHEET.pdfFact Sheet for Healthcare Patients:https://www.[employer]/Documents/Xpert%20Xpress%20SARS%20CoV-2/Fact%20Sheets/302-3801%20SARS-COV -2%20PATIENT%20FACT%20SHEET.pdfPerforming Laboratory:[facility], [place] [address]CSWID METABOLIC [id number] 09:53:00 Test Item Value Reference Range Interpretation [...] S NOT APPLICABLE FOR DIALYSIS PATIEN TS. Soaping Department Supervisor ID - ROSIANGPROTHROMBIN TIME/[id number] 09:39:00 Test Item Value Reference Range Interpretation [...] 0-0 (BEAKER) (test code = 413) URINE [id number] 11:01:00 Test Item Value Reference Range Interpretation Comments CULTURE (BEAKER) ENTEROCOCCUS A 40-49,000 c ol/mL (test code = 1095) FAECALIS Enterococ cus faecalis Ampicillin (test S code = 26) Linezolid (test code S = 40) Nitrofurantoin (test S code = 23) Tetracycline (test R code = 2) Vancomycin (test S code = 13) <10,000 col/mL skin floraHEMOGLOBIN [id number] 00:00:00 Test Item Value Reference Range Interpretation Comments HEMOGLOBIN A1c (test code = 42336) 6.9 % HEMOGLOBIN [id number] 00:00:00 Test Item Value Reference Range Interpretation Comments HEMOGLOBIN A1c (test code = 49550) 6.9 % HEMOGLOBIN [id number] 00:00:00 Test Item Value Reference Range Interpretation Comments HEMOGLOBIN A1c (test code = 70697) 6.9 % LIPID [id number] 00:00:00 Test Item Value Reference Range Interpretation Comments CHOLESTEROL (test code = 2210) 309 MG/DL TRIGLYCERIDES (test code = 2232) 587 MG/DL HDL CHOLESTEROL (test code = 48 MG/DL 2220) CALC LDL CHOL (test code = 2237) (NOTE) MG/DL RISK RATIO LDL/HDL (test code = (NOTE) RATIO 2238) LIPID [id number] 00:00:00 Test Item Value Reference Range Interpretation [...] THYROX. BIND. CAPAC. (test 1.5 code = 87566) T4 (THYROXINE) (test code = <1.2 UG/DL 2819) CORRECTED T4 (FTI) (test code (NOTE) UG/DL = 2820) TSH, THIRD GENERATION (test >100.000 UIU/ML code = 2821) THYROID II PROFILE (TU,T4,FTI,TSH) [ADDED]2019-10-26 00:00:00 Test Item Value Reference Range Interpretation Comments T-UPTAKE (test code = 2817) 18.4 % THYROX. BIND. CAPAC. (test 1.5 code = 94960) T4 (THYROXINE) (test code = <1.2 UG/DL 2819) CORRECTED T4 (FTI) (test code (NOTE) UG/DL = 2820) TSH, THIRD GENERATION (test >100.000 UIU/ML code = 2821) HEMOGLOBIN [id number] 00:00:00 Test Item Value Reference Range Interpretation Comments HEMOGLOBIN A1c (test code = 24207) 6.9 % HEMOGLOBIN [id number] 00:00:00 Test Item Value Reference Range Interpretation Comments HEMOGLOBIN A1c (test code = 47734) 6.9 % HEMOGLOBIN [id number] 00:00:00 Test Item Value Reference Range Interpretation Comments HEMOGLOBIN A1c (test code = 76655) 6.9 % LIPID [id number] 00:00:00 Test Item Value Reference Range Interpretation Comments CHOLESTEROL (test code = 2210) 309 MG/DL TRIGLYCERIDES (test code = 2232) 587 MG/DL HDL CHOLESTEROL (test code = 48 MG/DL 2220) CALC LDL CHOL (test code = 2237) (NOTE) MG/DL RISK RATIO LDL/HDL (test code = (NOTE) RATIO 2238) LIPID [id number] 00:00:00 Test Item Value Reference Range Interpretation [...] THYROX. BIND. CAPAC. (test 1.5 code = 86391) T4 (THYROXINE) (test code = <1.2 UG/DL 2819) CORRECTED T4 (FTI) (test code (NOTE) UG/DL = 2820) TSH, THIRD GENERATION (test >100.000 UIU/ML code = 2821) THYROID II PROFILE (TU,T4,FTI,TSH) [ADDED]2019-10-26 00:00:00 Test Item Value Reference Range Interpretation Comments T-UPTAKE (test code = 2817) 18.4 % THYROX. BIND. CAPAC. (test 1.5 code = 86421) T4 (THYROXINE) (test code = <1.2 UG/DL 2819) CORRECTED T4 (FTI) (test code (NOTE) UG/DL = 2820) TSH, THIRD GENERATION (test >100.000 UIU/ML code = 2821) HEMOGLOBIN [id number] 00:00:00 Test Item Value Reference Range Interpretation Comments HEMOGLOBIN A1c (test code = 50005) 6.9 % HEMOGLOBIN [id number] 00:00:00 Test Item Value Reference Range Interpretation Comments HEMOGLOBIN A1c (test code = 24222) 6.9 % HEMOGLOBIN [id number] 00:00:00 Test Item Value Reference Range Interpretation Comments HEMOGLOBIN A1c (test code = 47710) 6.9 % HEMOGLOBIN [id number] 00:00:00 Test Item Value Reference Range Interpretation Comments HEMOGLOBIN A1c (test code = 89751) 6.9 % HEMOGLOBIN [id number] 00:00:00 Test Item Value Reference Range Interpretation Comments HEMOGLOBIN A1c (test code = 94602) 6.9 % LIPID [id number] 00:00:00 Test Item Value Reference Range Interpretation Comments CHOLESTEROL (test code = 2210) 309 MG/DL TRIGLYCERIDES (test code = 2232) 587 MG/DL HDL CHOLESTEROL (test code = 48 MG/DL 2220) CALC LDL CHOL (test code = 2237) (NOTE) MG/DL RISK RATIO LDL/HDL (test code = (NOTE) RATIO 2238) LIPID [id number] 00:00:00 Test Item Value Reference Range Interpretation [...] THYROX. BIND. CAPAC. (test 1.5 code = 03744) T4 (THYROXINE) (test code = <1.2 UG/DL 2819) CORRECTED T4 (FTI) (test code (NOTE) UG/DL = 2820) TSH, THIRD GENERATION (test >100.000 UIU/ML code = 2821) THYROID II PROFILE (TU,T4,FTI,TSH) [ADDED]2019-10-26 00:00:00 Test Item Value Reference Range Interpretation Comments T-UPTAKE (test code = 2817) 18.4 % THYROX. BIND. CAPAC. (test 1.5 code = 03993) T4 (THYROXINE) (test code = <1.2 UG/DL 2819) CORRECTED T4 (FTI) (test code (NOTE) UG/DL = 2820) TSH, THIRD GENERATION (test >100.000 UIU/ML code = 2821) LIPID [id number] 00:00:00 Test Item Value Reference Range Interpretation [...] THYROX. BIND. CAPAC. (test 1.5 code = 89777) T4 (THYROXINE) (test code = <1.2 UG/DL 2819) CORRECTED T4 (FTI) (test code (NOTE) UG/DL = 2820) TSH, THIRD GENERATION (test >100.000 UIU/ML code = 2821) HEMOGLOBIN [id number] 00:00:00 Test Item Value Reference Range Interpretation Comments HEMOGLOBIN A1c (test code = 35734) 6.9 % HEMOGLOBIN [id number] 00:00:00 Test Item Value Reference Range Interpretation Comments HEMOGLOBIN A1c (test code = 86449) 6.9 % HEMOGLOBIN [id number] 00:00:00 Test Item Value Reference Range Interpretation Comments HEMOGLOBIN A1c (test code = 02220) 6.9 % LIPID [id number] 00:00:00 Test Item Value Reference Range Interpretation Comments CHOLESTEROL (test code = 2210) 309 MG/DL TRIGLYCERIDES (test code = 2232) 587 MG/DL HDL CHOLESTEROL (test code = 48 MG/DL 2220) CALC LDL CHOL (test code = 2237) (NOTE) MG/DL RISK RATIO LDL/HDL (test code = (NOTE) RATIO 2238) LIPID [id number] 00:00:00 Test Item Value Reference Range Interpretation [...] THYROX. BIND. CAPAC. (test 1.5 code = 93793) T4 (THYROXINE) (test code = <1.2 UG/DL 2819) CORRECTED T4 (FTI) (test code (NOTE) UG/DL = 2820) TSH, THIRD GENERATION (test >100.000 UIU/ML code = 2821) THYROID II PROFILE (TU,T4,FTI,TSH) [ADDED][id number] 00:00:00 Test Item Value Reference Range Interpretation Comments T-UPTAKE (test code = 2817) 18.4 % THYROX. BIND. CAPAC. (test 1.5 code = 63213) T4 (THYROXINE) (test code = <1.2 UG/DL 2819) CORRECTED T4 (FTI) (test code (NOTE) UG/DL = 2820) TSH, THIRD GENERATION (test >100.000 UIU/ML code = 2821) HEMOGLOBIN [id number] 00:00:00 Test Item Value Reference Range Interpretation Comments HEMOGLOBIN A1c (test code = 67786) 6.9 % HEMOGLOBIN [id number] 00:00:00 Test Item Value Reference Range Interpretation Comments HEMOGLOBIN A1c (test code = 70410) 6.9 % HEMOGLOBIN [id number] 00:00:00 Test Item Value Reference Range Interpretation Comments HEMOGLOBIN A1c (test code = 41399) 6.9 % LIPID [id number] 00:00:00 Test Item Value Reference Range Interpretation Comments CHOLESTEROL (test code = 2210) 309 MG/DL TRIGLYCERIDES (test code = 2232) 587 MG/DL HDL CHOLESTEROL (test code = 48 MG/DL 2220) CALC LDL CHOL (test code = 2237) (NOTE) MG/DL RISK RATIO LDL/HDL (test code = (NOTE) RATIO 2238) LIPID [id number] 00:00:00 Test Item Value Reference Range Interpretation [...] THYROX. BIND. CAPAC. (test 1.5 code = 78465) T4 (THYROXINE) (test code = <1.2 UG/DL 2819) CORRECTED T4 (FTI) (test code (NOTE) UG/DL = 2820) TSH, THIRD GENERATION (test >100.000 UIU/ML code = 2821) THYROID II PROFILE (TU,T4,FTI,TSH) [ADDED]2019-10-26 00:00:00 Test Item Value Reference Range Interpretation Comments T-UPTAKE (test code = 2817) 18.4 % THYROX. BIND. CAPAC. (test 1.5 code = 11060) T4 (THYROXINE) (test code = <1.2 UG/DL 2819) CORRECTED T4 (FTI) (test code (NOTE) UG/DL = 2820) TSH, THIRD GENERATION (test >100.000 UIU/ML code = 2821) HEMOGLOBIN [id number] 00:00:00 Test Item Value Reference Range Interpretation Comments HEMOGLOBIN A1c (test code = 95819) 6.9 % HEMOGLOBIN [id number] 00:00:00 Test Item Value Reference Range Interpretation Comments HEMOGLOBIN A1c (test code = 08392) 6.9 % HEMOGLOBIN [id number] 00:00:00 Test Item Value Reference Range Interpretation Comments HEMOGLOBIN A1c (test code = 82465) 6.9 % LIPID [id number] 00:00:00 Test Item Value Reference Range Interpretation Comments CHOLESTEROL (test code = 2210) 309 MG/DL TRIGLYCERIDES (test code = 2232) 587 MG/DL HDL CHOLESTEROL (test code = 48 MG/DL 2220) CALC LDL CHOL (test code = 2237) (NOTE) MG/DL RISK RATIO LDL/HDL (test code = (NOTE) RATIO 2238) LIPID [id number] 00:00:00 Test Item Value Reference Range Interpretation [...] THYROX. BIND. CAPAC. (test 1.5 code = 13596) T4 (THYROXINE) (test code = <1.2 UG/DL 2819) CORRECTED T4 (FTI) (test code (NOTE) UG/DL = 2820) TSH, THIRD GENERATION (test >100.000 UIU/ML code = 2821) THYROID II PROFILE (TU,T4,FTI,TSH) [ADDED]2019-10-26 00:00:00 Test Item Value Reference Range Interpretation Comments T-UPTAKE (test code = 2817) 18.4 % THYROX. BIND. CAPAC. (test 1.5 code = 35988) T4 (THYROXINE) (test code = <1.2 UG/DL 2819) CORRECTED T4 (FTI) (test code (NOTE) UG/DL = 2820) TSH, THIRD GENERATION (test >100.000 UIU/ML code = 2821) HEMOGLOBIN [id number] 00:00:00 Test Item Value Reference Range Interpretation Comments HEMOGLOBIN A1c (test code = 61673) 6.9 % HEMOGLOBIN [id number] 00:00:00 Test Item Value Reference Range Interpretation Comments HEMOGLOBIN A1c (test code = 37716) 6.9 % HEMOGLOBIN [id number] 00:00:00 Test Item Value Reference Range Interpretation Comments HEMOGLOBIN A1c (test code = 49325) 6.9 % LIPID [id number] 00:00:00 Test Item Value Reference Range Interpretation Comments CHOLESTEROL (test code = 2210) 309 MG/DL TRIGLYCERIDES (test code = 2232) 587 MG/DL HDL CHOLESTEROL (test code = 48 MG/DL 2220) CALC LDL CHOL (test code = 2237) (NOTE) MG/DL RISK RATIO LDL/HDL (test code = (NOTE) RATIO 2238) LIPID [id number] 00:00:00 Test Item Value Reference Range Interpretation [...] THYROX. BIND. CAPAC. (test 1.5 code = 87132) T4 (THYROXINE) (test code = <1.2 UG/DL 2819) CORRECTED T4 (FTI) (test code (NOTE) UG/DL = 2820) TSH, THIRD GENERATION (test >100.000 UIU/ML code = 2821) THYROID II PROFILE (TU,T4,FTI,TSH) [ADDED]2019-10-26 00:00:00 Test Item Value Reference Range Interpretation Comments T-UPTAKE (test code = 2817) 18.4 % THYROX. BIND. CAPAC. (test 1.5 code = 12000) T4 (THYROXINE) (test code = <1.2 UG/DL 2819) CORRECTED T4 (FTI) (test code (NOTE) UG/DL = 2820) TSH, THIRD GENERATION (test >100.000 UIU/ML code = 2821) HEMOGLOBIN [id number] 09:52:00 Test Item Value Reference Range Interpretation Comments HEMOGLOBIN A1C (BEAKER) (test code = 6.6 % 4.3-6.1 H 368) Soaping Department Supervisor ID - [id number] 09:08:00 Test Item Value Reference Range Interpretation Comments PROSTATE SPECIFIC ANTIGEN (BEAKER) 0.5 ng/mL 0.0-4.0 (test code = 844) Soaping Department Supervisor ID - [place] FLIPID [id number] 08:00:00 Test Item Value Reference Range Interpretation [...] Borderline 130-159 High 160-189 Very High >=190 Soaping Department Supervisor ID - SIMONE CTHYROID II PROFILE (T3U, T4, T7, TSH)2019-07-05 00:00:00 Test Item Value Reference Range Interpretation Comments T-UPTAKE (test code = 2817) 24.3 % THYROX. BIND. CAPAC. (test 1.3 code = 16696) T4 (THYROXINE) (test code = 3.6 UG/DL 2819) CORRECTED T4 (FTI) (test code 2.8 UG/DL = 2820) TSH, THIRD GENERATION (test >100.000 UIU/ML code = 2821) THYROID II PROFILE (T3U, T4, T7, TSH)2019-07-05 00:00:00 Test Item Value Reference Range Interpretation Comments T-UPTAKE (test code = 2817) 24.3 % THYROX. BIND. CAPAC. (test 1.3 code = 48702) T4 (THYROXINE) (test code = 3.6 UG/DL 2819) CORRECTED T4 (FTI) (test code 2.8 UG/DL = 2820) TSH, THIRD GENERATION (test >100.000 UIU/ML code = 2821) THYROID II PROFILE (T3U, T4, T7, TSH)2019-07-05 00:00:00 Test Item Value Reference Range Interpretation Comments T-UPTAKE (test code = 2817) 24.3 % THYROX. BIND. CAPAC. (test 1.3 code = 07828) T4 (THYROXINE) (test code = 3.6 UG/DL 2819) CORRECTED T4 (FTI) (test code 2.8 UG/DL = 2820) TSH, THIRD GENERATION (test >100.000 UIU/ML code = 2821) THYROID II PROFILE (T3U, T4, T7, TSH)2019-07-05 00:00:00 Test Item Value Reference Range Interpretation Comments T-UPTAKE (test code = 2817) 24.3 % THYROX. BIND. CAPAC. (test 1.3 code = 29154) T4 (THYROXINE) (test code = 3.6 UG/DL 2819) CORRECTED T4 (FTI) (test code 2.8 UG/DL = 2820) TSH, THIRD GENERATION (test >100.000 UIU/ML code = 2821) THYROID II PROFILE (T3U, T4, T7, TSH)2019-07-05 00:00:00 Test Item Value Reference Range Interpretation Comments T-UPTAKE (test code = 2817) 24.3 % THYROX. BIND. CAPAC. (test 1.3 code = 49243) T4 (THYROXINE) (test code = 3.6 UG/DL 2819) CORRECTED T4 (FTI) (test code 2.8 UG/DL = 2820) TSH, THIRD GENERATION (test >100.000 UIU/ML code = 2821) THYROID II PROFILE (T3U, T4, T7, TSH)2019-07-05 00:00:00 Test Item Value Reference Range Interpretation Comments T-UPTAKE (test code = 2817) 24.3 % THYROX. BIND. CAPAC. (test 1.3 code = 57119) T4 (THYROXINE) (test code = 3.6 UG/DL 2819) CORRECTED T4 (FTI) (test code 2.8 UG/DL = 2820) TSH, THIRD GENERATION (test >100.000 UIU/ML code = 2821) THYROID II PROFILE (T3U, T4, T7, TSH)2019-07-05 00:00:00 Test Item Value Reference Range Interpretation Comments T-UPTAKE (test code = 2817) 24.3 % THYROX. BIND. CAPAC. (test 1.3 code = 78100) T4 (THYROXINE) (test code = 3.6 UG/DL 2819) CORRECTED T4 (FTI) (test code 2.8 UG/DL = 2820) TSH, THIRD GENERATION (test >100.000 UIU/ML code = 2821) THYROID II PROFILE (T3U, T4, T7, TSH)2019-07-05 00:00:00 Test Item Value Reference Range Interpretation Comments T-UPTAKE (test code = 2817) 24.3 % THYROX. BIND. CAPAC. (test 1.3 code = 18716) T4 (THYROXINE) (test code = 3.6 UG/DL 2819) CORRECTED T4 (FTI) (test code 2.8 UG/DL = 2820) TSH, THIRD GENERATION (test >100.000 UIU/ML code = 2821) THYROID II PROFILE (T3U, T4, T7, TSH)2019-07-05 00:00:00 Test Item Value Reference Range Interpretation Comments T-UPTAKE (test code = 2817) 24.3 % THYROX. BIND. CAPAC. (test 1.3 code = 83508) T4 (THYROXINE) (test code = 3.6 UG/DL 2819) CORRECTED T4 (FTI) (test code 2.8 UG/DL = 2820) TSH, THIRD GENERATION (test >100.000 UIU/ML code = 2821) THYROID II PROFILE (T3U, T4, T7, TSH)2019-07-05 00:00:00 Test Item Value Reference Range Interpretation Comments T-UPTAKE (test code = 2817) 24.3 % THYROX. BIND. CAPAC. (test 1.3 code = 14128) T4 (THYROXINE) (test code = 3.6 UG/DL 2819) CORRECTED T4 (FTI) (test code 2.8 UG/DL = 2820) TSH, THIRD GENERATION (test >100.000 UIU/ML code = 2821) THYROID II PROFILE (T3U, T4, T7, TSH)2019-07-05 00:00:00 Test Item Value Reference Range Interpretation Comments T-UPTAKE (test code = 2817) 24.3 % THYROX. BIND. CAPAC. (test 1.3 code = 29927) T4 (THYROXINE) (test code = 3.6 UG/DL 2819) CORRECTED T4 (FTI) (test code 2.8 UG/DL = 2820) TSH, THIRD GENERATION (test >100.000 UIU/ML code = 2821) THYROID II PROFILE (T3U, T4, T7, TSH)2019-07-05 00:00:00 Test Item Value Reference Range Interpretation Comments T-UPTAKE (test code = 2817) 24.3 % THYROX. BIND. CAPAC. (test 1.3 code = 60022) T4 (THYROXINE) (test code = 3.6 UG/DL 2819) CORRECTED T4 (FTI) (test code 2.8 UG/DL = 2820) TSH, THIRD GENERATION (test >100.000 UIU/ML code = 2821) THYROID II PROFILE (T3U, T4, T7, TSH)2019-07-05 00:00:00 Test Item Value Reference Range Interpretation Comments T-UPTAKE (test code = 2817) 24.3 % THYROX. BIND. CAPAC. (test 1.3 code = 14031) T4 (THYROXINE) (test code = 3.6 UG/DL 2819) CORRECTED T4 (FTI) (test code 2.8 UG/DL = 2820) TSH, THIRD GENERATION (test >100.000 UIU/ML code = 2821) THYROID II PROFILE (T3U, T4, T7, TSH)2019-07-05 00:00:00 Test Item Value Reference Range Interpretation Comments T-UPTAKE (test code = 2817) 24.3 % THYROX. BIND. CAPAC. (test 1.3 code = 64022) T4 (THYROXINE) (test code = 3.6 UG/DL 2819) CORRECTED T4 (FTI) (test code 2.8 UG/DL = 2820) TSH, THIRD GENERATION (test >100.000 UIU/ML code = 2821) THYROID II PROFILE (T3U, T4, T7, TSH)2019-07-05 00:00:00 Test Item Value Reference Range Interpretation Comments T-UPTAKE (test code = 2817) 24.3 % THYROX. BIND. CAPAC. (test 1.3 code = 76185) T4 (THYROXINE) (test code = 3.6 UG/DL 2819) CORRECTED T4 (FTI) (test code 2.8 UG/DL = 2820) TSH, THIRD GENERATION (test >100.000 UIU/ML code = 2821) URINE [id number] 14:35:00 Test Item Value Reference Range Interpretation Comments CULTURE (BEAKER) ENTEROCOCCUS A 10-19,000 c ol/mL (test code = 1095) FAECALIS Enterococ cus faecalis Ampicillin (test S code = 26) Levofloxacin (test S code = 22) Linezolid (test code S = 40) Nitrofurantoin (test S code = 23) Tetracycline (test R code = 2) Vancomycin (test S code = 13) 10-19,000 col/mL skin [id number] 10:31:00 Test Item Value Reference Range Interpretation Comments RPR SCREEN (BESETH) (test code = Nonreactive Nonreactive 420) U/S, ABDOMINAL, [id number] 16:14:00Reason for Exam:->Kidney transplant evaluation; comment on [...] MDReport Verified Date/Time: 05/23/2019 16:14:42 Reading Location: [address] Radiology Reading Room RAD, CHEST, 2 [id number] 16:02:00 Reason for Exam:->Pre kidney transplant evaluation.FINAL [...] MDReport Verified Date/Time: 05/23/2019 16:02:27 Reading Location: [address] Radiology Reading Room CYTOMEGALOVIRUS ANTIBODY, [id number] 15:17:00 Test Item Value Reference Range Interpretation Comments CYTOMEGALOVIRUS, IGG (BEAKER) Positive Negative, Equivocal A (test code = 3429) CMV IgG Result Interpretation: </= 0.8 Al Negative 0.9-1.0 Al Equivocal >/=1.1 Al PositiveCYTOMEGALOVIRUS ANTIBODY, [id number] 15:17:00 Test Item Value Reference Range Interpretation Comments CYTOMEGALOVIRUS IGM ANTIBODY Negative Negative, Equivocal (BEAKER) (test code = 3437) CMV IgM Result Interpretation: </= 0.8 Al Negative 0.9-1.0 Al Equivocal >/= 1.1 Al PositiveEBV ANTIBODY, [id number] 15:17:00 Test Item Value Reference Range Interpretation Comments NIHARIKA HOOPER VIRAL CAPSID Positive Negative, Equivocal A ANTIGEN IGG (BEAKER) (test code = 3415) Niharika Hooper Viral Capsid Antigen IgG Result Interpretation: </= 0.8 Al Negative 0.9-1.0 Al Equivocal >/= 1.1 Al PositiveEBV ANTIBODY, [id number] 15:17:00 Test Item Value Reference Range Interpretation Comments NIHARIKA HOOPER VIRAL CAPSID Negative Negative, Equivocal ANTIGEN IGM (BEAKER) (test code = 3418) Niharika Hooper Viral Capsid Antigen IgM Result Interpretation: </= 0.8 Al Negative 0.9-1.0 Al Equivocal >/= 1.1 Al PositiveVARICELLA ZOSTER ANTIBODY, [id number] 15:17:00 Test Item Value Reference Range Interpretation Comments VARICELLA ZOSTER IGG (AL) (BEAKER) 3.4 (test code = 3197) VARICELLA ZOSTER RESULT INTERPRETATIONS: <=0.8 Al Nonreactive: Presumed non- immune to VZV 0.9-1.0Al Equivocal >=1.1 Al Reactive: Presumed immune to VZV HEPATITIS B SURFACE [id number] 12:59:00 Test Item Value Reference Range Interpretation Comments HEPATITIS B SURFACE ANTIBODY 66414.3 mIU/mL <8.0 H (BEAKER) (test code = 647) Soaping Department Supervisor ID - TIKAEPATITIS B SURFACE [id number] 12:47:00 Test Item Value Reference Range Interpretation Comments HEPATITIS B SURFACE ANTIGEN (2) Nonreactive Nonreactive (BEAKER) (test code = 2585) Soaping Department Supervisor ID - NANCYGHEPATITIS B CORE ANTIBODY, [id number] 12:47:00 Test Item Value Reference Range Interpretation Comments HEPATITIS B CORE IGM ANTIBODY Nonreactive Nonreactive (BEAKER) (test code = 645) Soaping Department Supervisor ID - ROSIANGHEPATITIS C [id number] 12:47:00 Test Item Value Reference Range Interpretation Comments HEPATITIS C ANTIBODY (BEAKER) Nonreactive Nonreactive (test code = 367) Soaping Department Supervisor ID - TIKAIV-1 ANTIGEN WITH HIV-1/2 [id number] 12:47:00 Test Item Value Reference Range Interpretation Comments HIV-1 ANTIGEN WITH HIV 1\T\2 Nonreactive Nonreactive ANTIBODY (2) (BEAKER) (test code = 2586) Soaping Department Supervisor ID - ROSIANGPTH, [id number] 12:03:00 Test Item Value Reference Range Interpretation Comments PARATHYROID HORMONE INTACT 430.9 pg/mL 8.5-72.5 H (BEAKER) (test code = 577) Soaping Department Supervisor ID - LACOMPREHENSIVE METABOLIC [id number] 11:56:00 Test Item Value Reference Range Interpretation [...] S NOT APPLICABLE FOR DIALYSIS PATIEN TS. Soaping Department Supervisor ID - LAURIC [id number] 11:55:00 Test Item Value Reference Range Interpretation Comments URIC ACID (BEAKER) (test code = 5.5 mg/dL 2.6-7.2 773) Soaping Department Supervisor ID - [id number] 11:55:00 Test Item Value Reference Range Interpretation Comments PHOSPHORUS (BEAKER) (test code = 5.5 mg/dL 2.3-4.7 H 604) Soaping Department Supervisor ID - LAGAMMA GLUTAMYL TRANSFERASE (GGT)2019-05-23 11:55:00 Test Item Value Reference Range Interpretation Comments GAMMA GLUTAMYL TRANSFERASE (BEAKER) 20 U/L 9-64 (test code = 364) Soaping Department Supervisor ID - LALACTATE DEHYDROGENASE (LDH)2019-05-23 11:55:00 Test Item Value Reference Range Interpretation Comments LACTATE DEHYDROGENASE (BEAKER) (test 249 U/L 125-220 H code = 635) Soaping Department Supervisor ID - LAURINALYSIS W/ [id number] 11:43:00 Test Item Value Reference Range Interpretation [...] < /HPF SOURCE(BEAKER) (test code = 2795) Soaping Department Supervisor ID - [auto]Soaping Department Supervisor ID - techPT/[id number] 11:32:00 Test Item Value Reference Range Interpretation [...] 2.5-3.5 for patients wiht mechanical heart valves.PROTHROMBIN TIME/[id number] 11:31:00 Test Item Value Reference Range Interpretation [...] mechanical heart valves.CBC W/PLT COUNT & AUTO [id number] 11:27:00 Test Item Value Reference Range Interpretation [...] 0-1 PERCENT (BEAKER) (test code = 2801) [id number] 00:00:00 Test Item Value Reference Range Interpretation Comments TSH, THIRD GENERATION (test >100.000 UIU/ML code = 2821) [id number] 00:00:00 Test Item Value Reference Range Interpretation Comments TSH, THIRD GENERATION (test >100.000 UIU/ML code = 2821) [id number] 00:00:00 Test Item Value Reference Range Interpretation Comments TSH, THIRD GENERATION (test >100.000 UIU/ML code = 2821) [id number] 00:00:00 Test Item Value Reference Range Interpretation Comments TSH, THIRD GENERATION (test >100.000 UIU/ML code = 2821) [id number] 00:00:00 Test Item Value Reference Range Interpretation Comments TSH, THIRD GENERATION (test >100.000 UIU/ML code = 2821) [id number] 00:00:00 Test Item Value Reference Range Interpretation Comments TSH, THIRD GENERATION (test >100.000 UIU/ML code = 2821) [id number] 00:00:00 Test Item Value Reference Range Interpretation Comments TSH, THIRD GENERATION (test >100.000 UIU/ML code = 2821) [id number] 00:00:00 Test Item Value Reference Range Interpretation Comments TSH, THIRD GENERATION (test >100.000 UIU/ML code = 2821) [id number] 00:00:00 Test Item Value Reference Range Interpretation Comments TSH, THIRD GENERATION (test >100.000 UIU/ML code = 2821) [id number] 00:00:00 Test Item Value Reference Range Interpretation Comments TSH, THIRD GENERATION (test >100.000 UIU/ML code = 2821) [id number] 00:00:00 Test Item Value Reference Range Interpretation Comments TSH, THIRD GENERATION (test >100.000 UIU/ML code = 2821) [id number] 00:00:00 Test Item Value Reference Range Interpretation Comments TSH, THIRD GENERATION (test >100.000 UIU/ML code = 2821) [id number] 00:00:00 Test Item Value Reference Range Interpretation Comments TSH, THIRD GENERATION (test >100.000 UIU/ML code = 2821) [id number] 00:00:00 Test Item Value Reference Range Interpretation Comments TSH, THIRD GENERATION (test >100.000 UIU/ML code = 2821) [id number] 00:00:00 Test Item Value Reference Range Interpretation Comments TSH, THIRD GENERATION (test >100.000 UIU/ML code = 2821) [id number] 00:00:00 Test Item Value Reference Range Interpretation Comments TSH, THIRD GENERATION (test >100.000 UIU/ML code = 2821) [id number] 00:00:00 Test Item Value Reference Range Interpretation Comments TSH, THIRD GENERATION (test >100.000 UIU/ML code = 2821) [id number] 00:00:00 Test Item Value Reference Range Interpretation Comments TSH, THIRD GENERATION (test >100.000 UIU/ML code = 2821) [id number] 00:00:00 Test Item Value Reference Range Interpretation Comments TSH, THIRD GENERATION (test >100.000 UIU/ML code = 2821) [id number] 00:00:00 Test Item Value Reference Range Interpretation Comments TSH, THIRD GENERATION (test >100.000 UIU/ML code = 2821) [id number] 00:00:00 Test Item Value Reference Range Interpretation Comments TSH, THIRD GENERATION (test >100.000 UIU/ML code = 2821) [id number] 00:00:00 Test Item Value Reference Range Interpretation Comments TSH, THIRD GENERATION (test >100.000 UIU/ML code = 2821) [id number] 00:00:00 Test Item Value Reference Range Interpretation Comments TSH, THIRD GENERATION (test >100.000 UIU/ML code = 2821) LIPID [id number] 00:00:00 Test Item Value Reference Range Interpretation Comments CHOLESTEROL (test code = 2210) 201 MG/DL TRIGLYCERIDES (test code = 2232) 227 MG/DL HDL CHOLESTEROL (test code = 2220) 52 MG/DL CALC LDL CHOL (test code = 2237) 104 MG/DL RISK RATIO LDL/HDL (test code = 1.99 RATIO 2238) LIPID [id number] 00:00:00 Test Item Value Reference Range Interpretation Comments CHOLESTEROL (test code = 2210) 201 MG/DL TRIGLYCERIDES (test code = 2232) 227 MG/DL HDL CHOLESTEROL (test code = 2220) 52 MG/DL CALC LDL CHOL (test code = 2237) 104 MG/DL RISK RATIO LDL/HDL (test code = 1.99 RATIO 2238) [id number] 00:00:00 Test Item Value Reference Range Interpretation Comments TSH, THIRD GENERATION (test >100.000 UIU/ML code = 2821) [id number] 00:00:00 Test Item Value Reference Range Interpretation Comments TSH, THIRD GENERATION (test >100.000 UIU/ML code = 2821) [id number] 00:00:00 Test Item Value Reference Range Interpretation Comments TSH, THIRD GENERATION (test >100.000 UIU/ML code = 2821) LIPID [id number] 00:00:00 Test Item Value Reference Range Interpretation Comments CHOLESTEROL (test code = 2210) 201 MG/DL TRIGLYCERIDES (test code = 2232) 227 MG/DL HDL CHOLESTEROL (test code = 2220) 52 MG/DL CALC LDL CHOL (test code = 2237) 104 MG/DL RISK RATIO LDL/HDL (test code = 1.99 RATIO 2238) LIPID [id number] 00:00:00 Test Item Value Reference Range Interpretation Comments CHOLESTEROL (test code = 2210) 201 MG/DL TRIGLYCERIDES (test code = 2232) 227 MG/DL HDL CHOLESTEROL (test code = 2220) 52 MG/DL CALC LDL CHOL (test code = 2237) 104 MG/DL RISK RATIO LDL/HDL (test code = 1.99 RATIO 2238) [id number] 00:00:00 Test Item Value Reference Range Interpretation Comments TSH, THIRD GENERATION (test >100.000 UIU/ML code = 2821) [id number] 00:00:00 Test Item Value Reference Range Interpretation Comments TSH, THIRD GENERATION (test >100.000 UIU/ML code = 2821) [id number] 00:00:00 Test Item Value Reference Range Interpretation Comments TSH, THIRD GENERATION (test >100.000 UIU/ML code = 2821) LIPID [id number] 00:00:00 Test Item Value Reference Range Interpretation Comments CHOLESTEROL (test code = 2210) 201 MG/DL TRIGLYCERIDES (test code = 2232) 227 MG/DL HDL CHOLESTEROL (test code = 2220) 52 MG/DL CALC LDL CHOL (test code = 2237) 104 MG/DL RISK RATIO LDL/HDL (test code = 1.99 RATIO 2238) LIPID [id number] 00:00:00 Test Item Value Reference Range Interpretation Comments CHOLESTEROL (test code = 2210) 201 MG/DL TRIGLYCERIDES (test code = 2232) 227 MG/DL HDL CHOLESTEROL (test code = 2220) 52 MG/DL CALC LDL CHOL (test code = 2237) 104 MG/DL RISK RATIO LDL/HDL (test code = 1.99 RATIO 2238) LIPID [id number] 00:00:00 Test Item Value Reference Range Interpretation Comments CHOLESTEROL (test code = 2210) 201 MG/DL TRIGLYCERIDES (test code = 2232) 227 MG/DL HDL CHOLESTEROL (test code = 2220) 52 MG/DL CALC LDL CHOL (test code = 2237) 104 MG/DL RISK RATIO LDL/HDL (test code = 1.99 RATIO 2238) [id number] 00:00:00 Test Item Value Reference Range Interpretation Comments TSH, THIRD GENERATION (test >100.000 UIU/ML code = 2821) [id number] 00:00:00 Test Item Value Reference Range Interpretation Comments TSH, THIRD GENERATION (test >100.000 UIU/ML code = 2821) [id number] 00:00:00 Test Item Value Reference Range Interpretation Comments TSH, THIRD GENERATION (test >100.000 UIU/ML code = 2821) [id number] 00:00:00 Test Item Value Reference Range Interpretation Comments TSH, THIRD GENERATION (test >100.000 UIU/ML code = 2821) [id number] 00:00:00 Test Item Value Reference Range Interpretation Comments TSH, THIRD GENERATION (test >100.000 UIU/ML code = 2821) LIPID [id number] 00:00:00 Test Item Value Reference Range Interpretation Comments CHOLESTEROL (test code = 2210) 201 MG/DL TRIGLYCERIDES (test code = 2232) 227 MG/DL HDL CHOLESTEROL (test code = 2220) 52 MG/DL CALC LDL CHOL (test code = 2237) 104 MG/DL RISK RATIO LDL/HDL (test code = 1.99 RATIO 2238) LIPID [id number] 00:00:00 Test Item Value Reference Range Interpretation Comments CHOLESTEROL (test code = 2210) 201 MG/DL TRIGLYCERIDES (test code = 2232) 227 MG/DL HDL CHOLESTEROL (test code = 2220) 52 MG/DL CALC LDL CHOL (test code = 2237) 104 MG/DL RISK RATIO LDL/HDL (test code = 1.99 RATIO 2238) [id number] 00:00:00 Test Item Value Reference Range Interpretation Comments TSH, THIRD GENERATION (test >100.000 UIU/ML code = 2821) [id number] 00:00:00 Test Item Value Reference Range Interpretation Comments TSH, THIRD GENERATION (test >100.000 UIU/ML code = 2821) [id number] 00:00:00 Test Item Value Reference Range Interpretation Comments TSH, THIRD GENERATION (test >100.000 UIU/ML code = 2821) LIPID [id number] 00:00:00 Test Item Value Reference Range Interpretation Comments CHOLESTEROL (test code = 2210) 201 MG/DL TRIGLYCERIDES (test code = 2232) 227 MG/DL HDL CHOLESTEROL (test code = 2220) 52 MG/DL CALC LDL CHOL (test code = 2237) 104 MG/DL RISK RATIO LDL/HDL (test code = 1.99 RATIO 2238) LIPID [id number] 00:00:00 Test Item Value Reference Range Interpretation Comments CHOLESTEROL (test code = 2210) 201 MG/DL TRIGLYCERIDES (test code = 2232) 227 MG/DL HDL CHOLESTEROL (test code = 2220) 52 MG/DL CALC LDL CHOL (test code = 2237) 104 MG/DL RISK RATIO LDL/HDL (test code = 1.99 RATIO 2238) [id number] 00:00:00 Test Item Value Reference Range Interpretation Comments TSH, THIRD GENERATION (test >100.000 UIU/ML code = 2821) [id number] 00:00:00 Test Item Value Reference Range Interpretation Comments TSH, THIRD GENERATION (test >100.000 UIU/ML code = 2821) [id number] 00:00:00 Test Item Value Reference Range Interpretation Comments TSH, THIRD GENERATION (test >100.000 UIU/ML code = 2821) LIPID [id number] 00:00:00 Test Item Value Reference Range Interpretation Comments CHOLESTEROL (test code = 2210) 201 MG/DL TRIGLYCERIDES (test code = 2232) 227 MG/DL HDL CHOLESTEROL (test code = 2220) 52 MG/DL CALC LDL CHOL (test code = 2237) 104 MG/DL RISK RATIO LDL/HDL (test code = 1.99 RATIO 2238) LIPID [id number] 00:00:00 Test Item Value Reference Range Interpretation Comments CHOLESTEROL (test code = 2210) 201 MG/DL TRIGLYCERIDES (test code = 2232) 227 MG/DL HDL CHOLESTEROL (test code = 2220) 52 MG/DL CALC LDL CHOL (test code = 2237) 104 MG/DL RISK RATIO LDL/HDL (test code = 1.99 RATIO 2238) [id number] 00:00:00 Test Item Value Reference Range Interpretation Comments TSH, THIRD GENERATION (test >100.000 UIU/ML code = 2821) [id number] 00:00:00 Test Item Value Reference Range Interpretation Comments TSH, THIRD GENERATION (test >100.000 UIU/ML code = 2821) [id number] 00:00:00 Test Item Value Reference Range Interpretation Comments TSH, THIRD GENERATION (test >100.000 UIU/ML code = 2821) LIPID [id number] 00:00:00 Test Item Value Reference Range Interpretation Comments CHOLESTEROL (test code = 2210) 201 MG/DL TRIGLYCERIDES (test code = 2232) 227 MG/DL HDL CHOLESTEROL (test code = 2220) 52 MG/DL CALC LDL CHOL (test code = 2237) 104 MG/DL RISK RATIO LDL/HDL (test code = 1.99 RATIO 2238) LIPID [id number] 00:00:00 Test Item Value Reference Range Interpretation Comments CHOLESTEROL (test code = 2210) 201 MG/DL TRIGLYCERIDES (test code = 2232) 227 MG/DL HDL CHOLESTEROL (test code = 2220) 52 MG/DL CALC LDL CHOL (test code = 2237) 104 MG/DL RISK RATIO LDL/HDL (test code = 1.99 RATIO 2238) [id number] 00:00:00 Test Item Value Reference Range Interpretation Comments TSH, THIRD GENERATION (test >100.000 UIU/ML code = 2821) [id number] 00:00:00 Test Item Value Reference Range Interpretation Comments TSH, THIRD GENERATION (test >100.000 UIU/ML code = 2821) [id number] 00:00:00 Test Item Value Reference Range Interpretation Comments TSH, THIRD GENERATION (test >100.000 UIU/ML code = 2821) COMPREHENSIVE METABOLIC [id number] 00:00:00 Test Item Value Reference Range Interpretation Comments GLUCOSE (test code = 2217) 103 MG/DL BUN (test code = 2208) 35 MG/DL CREATININE (test code = 2214) 6.37 MG/DL eGFR AMER. (test code 11 ML/MIN/1.73 = 46972) eGFR NON- AMER. (test 9 ML/MIN/1.73 code = 04770) CALC BUN/CREAT (test code = 5 RATIO [...] code = 2219) 10 U/L COMPREHENSIVE METABOLIC [id number] 00:00:00 Test Item Value Reference Range Interpretation Comments GLUCOSE (test code = 2217) 103 MG/DL BUN (test code = 2208) 35 MG/DL CREATININE (test code = 2214) 6.37 MG/DL eGFR AMER. (test code 11 ML/MIN/1.73 = 07713) eGFR NON- AMER. (test 9 ML/MIN/1.73 code = 98511) CALC BUN/CREAT (test code = 5 RATIO [...] (test code = 2219) 10 U/L LIPID [id number] 00:00:00 Test Item Value Reference Range Interpretation Comments CHOLESTEROL (test code = 2210) 240 MG/DL TRIGLYCERIDES (test code = 2232) 395 MG/DL HDL CHOLESTEROL (test code = 2220) 55 MG/DL CALC LDL CHOL (test code = 2237) 106 MG/DL RISK RATIO LDL/HDL (test code = 1.93 RATIO 2238) LIPID [id number] 00:00:00 Test Item Value Reference Range Interpretation Comments CHOLESTEROL (test code = 2210) 240 MG/DL TRIGLYCERIDES (test code = 2232) 395 MG/DL HDL CHOLESTEROL (test code = 2220) 55 MG/DL CALC LDL CHOL (test code = 2237) 106 MG/DL RISK RATIO LDL/HDL (test code = 1.93 RATIO 2238) CBC W/AUTO [id number] 00:00:00 Test Item Value Reference Range Interpretation [...] code = 1015) 327 K/UL CBC W/AUTO [id number] 00:00:00 Test Item Value Reference Range Interpretation [...] code = 1015) 327 K/UL CBC W/AUTO [id number] 00:00:00 Test Item Value Reference Range Interpretation [...] (test code = 1015) 327 K/UL HEMOGLOBIN [id number] 00:00:00 Test Item Value Reference Range Interpretation Comments HEMOGLOBIN A1c (test code = 98233) 6.2 % HEMOGLOBIN [id number] 00:00:00 Test Item Value Reference Range Interpretation Comments HEMOGLOBIN A1c (test code = 50687) 6.2 % HEMOGLOBIN [id number] 00:00:00 Test Item Value Reference Range Interpretation Comments HEMOGLOBIN A1c (test code = 00572) 6.2 % [id number] 00:00:00 Test Item Value Reference Range Interpretation Comments TSH, THIRD GENERATION (test >100.000 UIU/ML code = 2821) [id number] 00:00:00 Test Item Value Reference Range Interpretation Comments TSH, THIRD GENERATION (test >100.000 UIU/ML code = 2821) [id number] 00:00:00 Test Item Value Reference Range Interpretation Comments TSH, THIRD GENERATION (test >100.000 UIU/ML code = 2821) COMPREHENSIVE METABOLIC [id number] 00:00:00 Test Item Value Reference Range Interpretation Comments GLUCOSE (test code = 2217) 103 MG/DL BUN (test code = 2208) 35 MG/DL CREATININE (test code = 2214) 6.37 MG/DL eGFR AMER. (test code 11 ML/MIN/1.73 = 85500) eGFR NON- AMER. (test 9 ML/MIN/1.73 code = 93054) CALC BUN/CREAT (test code = 5 RATIO [...] code = 2219) 10 U/L COMPREHENSIVE METABOLIC [id number] 00:00:00 Test Item Value Reference Range Interpretation Comments GLUCOSE (test code = 2217) 103 MG/DL BUN (test code = 2208) 35 MG/DL CREATININE (test code = 2214) 6.37 MG/DL eGFR AMER. (test code 11 ML/MIN/1.73 = 57456) eGFR NON- AMER. (test 9 ML/MIN/1.73 code = 14925) CALC BUN/CREAT (test code = 5 RATIO [...] (test code = 2219) 10 U/L LIPID [id number] 00:00:00 Test Item Value Reference Range Interpretation Comments CHOLESTEROL (test code = 2210) 240 MG/DL TRIGLYCERIDES (test code = 2232) 395 MG/DL HDL CHOLESTEROL (test code = 2220) 55 MG/DL CALC LDL CHOL (test code = 2237) 106 MG/DL RISK RATIO LDL/HDL (test code = 1.93 RATIO 2238) LIPID [id number] 00:00:00 Test Item Value Reference Range Interpretation Comments CHOLESTEROL (test code = 2210) 240 MG/DL TRIGLYCERIDES (test code = 2232) 395 MG/DL HDL CHOLESTEROL (test code = 2220) 55 MG/DL CALC LDL CHOL (test code = 2237) 106 MG/DL RISK RATIO LDL/HDL (test code = 1.93 RATIO 2238) CBC W/AUTO [id number] 00:00:00 Test Item Value Reference Range Interpretation [...] code = 1015) 327 K/UL CBC W/AUTO [id number] 00:00:00 Test Item Value Reference Range Interpretation [...] code = 1015) 327 K/UL CBC W/AUTO [id number] 00:00:00 Test Item Value Reference Range Interpretation [...] (test code = 1015) 327 K/UL HEMOGLOBIN [id number] 00:00:00 Test Item Value Reference Range Interpretation Comments HEMOGLOBIN A1c (test code = 40640) 6.2 % HEMOGLOBIN [id number] 00:00:00 Test Item Value Reference Range Interpretation Comments HEMOGLOBIN A1c (test code = 16396) 6.2 % HEMOGLOBIN [id number] 00:00:00 Test Item Value Reference Range Interpretation Comments HEMOGLOBIN A1c (test code = 62521) 6.2 % [id number] 00:00:00 Test Item Value Reference Range Interpretation Comments TSH, THIRD GENERATION (test >100.000 UIU/ML code = 2821) [id number] 00:00:00 Test Item Value Reference Range Interpretation Comments TSH, THIRD GENERATION (test >100.000 UIU/ML code = 2821) [id number] 00:00:00 Test Item Value Reference Range Interpretation Comments TSH, THIRD GENERATION (test >100.000 UIU/ML code = 2821) COMPREHENSIVE METABOLIC [id number] 00:00:00 Test Item Value Reference Range Interpretation Comments GLUCOSE (test code = 2217) 103 MG/DL BUN (test code = 2208) 35 MG/DL CREATININE (test code = 2214) 6.37 MG/DL eGFR AMER. (test code 11 ML/MIN/1.73 = 12358) eGFR NON- AMER. (test 9 ML/MIN/1.73 code = 31617) CALC BUN/CREAT (test code = 5 RATIO [...] code = 2219) 10 U/L COMPREHENSIVE METABOLIC [id number] 00:00:00 Test Item Value Reference Range Interpretation Comments GLUCOSE (test code = 2217) 103 MG/DL BUN (test code = 2208) 35 MG/DL CREATININE (test code = 2214) 6.37 MG/DL eGFR AMER. (test code 11 ML/MIN/1.73 = 19269) eGFR NON- AMER. (test 9 ML/MIN/1.73 code = 54596) CALC BUN/CREAT (test code = 5 RATIO [...] (test code = 2219) 10 U/L LIPID [id number] 00:00:00 Test Item Value Reference Range Interpretation Comments CHOLESTEROL (test code = 2210) 240 MG/DL TRIGLYCERIDES (test code = 2232) 395 MG/DL HDL CHOLESTEROL (test code = 2220) 55 MG/DL CALC LDL CHOL (test code = 2237) 106 MG/DL RISK RATIO LDL/HDL (test code = 1.93 RATIO 2238) LIPID [id number] 00:00:00 Test Item Value Reference Range Interpretation Comments CHOLESTEROL (test code = 2210) 240 MG/DL TRIGLYCERIDES (test code = 2232) 395 MG/DL HDL CHOLESTEROL (test code = 2220) 55 MG/DL CALC LDL CHOL (test code = 2237) 106 MG/DL RISK RATIO LDL/HDL (test code = 1.93 RATIO 2238) COMPREHENSIVE METABOLIC [id number] 00:00:00 Test Item Value Reference Range Interpretation Comments GLUCOSE (test code = 2217) 103 MG/DL BUN (test code = 2208) 35 MG/DL CREATININE (test code = 2214) 6.37 MG/DL eGFR AMER. (test code 11 ML/MIN/1.73 = 49522) eGFR NON- AMER. (test 9 ML/MIN/1.73 code = 53588) CALC BUN/CREAT (test code = 5 RATIO [...] code = 2219) 10 U/L CBC W/AUTO [id number] 00:00:00 Test Item Value Reference Range Interpretation [...] (test code = 1015) 327 K/UL LIPID [id number] 00:00:00 Test Item Value Reference Range Interpretation Comments CHOLESTEROL (test code = 2210) 240 MG/DL TRIGLYCERIDES (test code = 2232) 395 MG/DL HDL CHOLESTEROL (test code = 2220) 55 MG/DL CALC LDL CHOL (test code = 2237) 106 MG/DL RISK RATIO LDL/HDL (test code = 1.93 RATIO 2238) CBC W/AUTO [id number] 00:00:00 Test Item Value Reference Range Interpretation [...] code = 1015) 327 K/UL CBC W/AUTO [id number] 00:00:00 Test Item Value Reference Range Interpretation [...] (test code = 1015) 327 K/UL HEMOGLOBIN [id number] 00:00:00 Test Item Value Reference Range Interpretation Comments HEMOGLOBIN A1c (test code = 40003) 6.2 % HEMOGLOBIN [id number] 00:00:00 Test Item Value Reference Range Interpretation Comments HEMOGLOBIN A1c (test code = 18401) 6.2 % HEMOGLOBIN [id number] 00:00:00 Test Item Value Reference Range Interpretation Comments HEMOGLOBIN A1c (test code = 12193) 6.2 % [id number] 00:00:00 Test Item Value Reference Range Interpretation Comments TSH, THIRD GENERATION (test >100.000 UIU/ML code = 2821) [id number] 00:00:00 Test Item Value Reference Range Interpretation Comments TSH, THIRD GENERATION (test >100.000 UIU/ML code = 2821) [id number] 00:00:00 Test Item Value Reference Range Interpretation Comments TSH, THIRD GENERATION (test >100.000 UIU/ML code = 2821) CBC W/AUTO [id number] 00:00:00 Test Item Value Reference Range Interpretation [...] code = 1015) 327 K/UL CBC W/AUTO [id number] 00:00:00 Test Item Value Reference Range Interpretation [...] (test code = 1015) 327 K/UL HEMOGLOBIN [id number] 00:00:00 Test Item Value Reference Range Interpretation Comments HEMOGLOBIN A1c (test code = 34579) 6.2 % HEMOGLOBIN [id number] 00:00:00 Test Item Value Reference Range Interpretation Comments HEMOGLOBIN A1c (test code = 59369) 6.2 % COMPREHENSIVE METABOLIC [id number] 00:00:00 Test Item Value Reference Range Interpretation Comments GLUCOSE (test code = 2217) 103 MG/DL BUN (test code = 2208) 35 MG/DL CREATININE (test code = 2214) 6.37 MG/DL eGFR AMER. (test code 11 ML/MIN/1.73 = 93445) eGFR NON- AMER. (test 9 ML/MIN/1.73 code = 70660) CALC BUN/CREAT (test code = 5 RATIO [...] code = 2219) 10 U/L COMPREHENSIVE METABOLIC [id number] 00:00:00 Test Item Value Reference Range Interpretation Comments GLUCOSE (test code = 2217) 103 MG/DL BUN (test code = 2208) 35 MG/DL CREATININE (test code = 2214) 6.37 MG/DL eGFR AMER. (test code 11 ML/MIN/1.73 = 59509) eGFR NON- AMER. (test 9 ML/MIN/1.73 code = 68125) CALC BUN/CREAT (test code = 5 RATIO [...] ALT (test code = 2219) 10 U/L [id number] 00:00:00 Test Item Value Reference Range Interpretation Comments TSH, THIRD GENERATION (test >100.000 UIU/ML code = 2821) [id number] 00:00:00 Test Item Value Reference Range Interpretation Comments TSH, THIRD GENERATION (test >100.000 UIU/ML code = 2821) LIPID [id number] 00:00:00 Test Item Value Reference Range Interpretation Comments CHOLESTEROL (test code = 2210) 240 MG/DL TRIGLYCERIDES (test code = 2232) 395 MG/DL HDL CHOLESTEROL (test code = 2220) 55 MG/DL CALC LDL CHOL (test code = 2237) 106 MG/DL RISK RATIO LDL/HDL (test code = 1.93 RATIO 2238) LIPID [id number] 00:00:00 Test Item Value Reference Range Interpretation Comments CHOLESTEROL (test code = 2210) 240 MG/DL TRIGLYCERIDES (test code = 2232) 395 MG/DL HDL CHOLESTEROL (test code = 2220) 55 MG/DL CALC LDL CHOL (test code = 2237) 106 MG/DL RISK RATIO LDL/HDL (test code = 1.93 RATIO 2238) CBC W/AUTO [id number] 00:00:00 Test Item Value Reference Range Interpretation [...] code = 1015) 327 K/UL CBC W/AUTO [id number] 00:00:00 Test Item Value Reference Range Interpretation [...] code = 1015) 327 K/UL CBC W/AUTO [id number] 00:00:00 Test Item Value Reference Range Interpretation [...] (test code = 1015) 327 K/UL HEMOGLOBIN [id number] 00:00:00 Test Item Value Reference Range Interpretation Comments HEMOGLOBIN A1c (test code = 14948) 6.2 % HEMOGLOBIN [id number] 00:00:00 Test Item Value Reference Range Interpretation Comments HEMOGLOBIN A1c (test code = 54193) 6.2 % HEMOGLOBIN [id number] 00:00:00 Test Item Value Reference Range Interpretation Comments HEMOGLOBIN A1c (test code = 86659) 6.2 % [id number] 00:00:00 Test Item Value Reference Range Interpretation Comments TSH, THIRD GENERATION (test >100.000 UIU/ML code = 2821) [id number] 00:00:00 Test Item Value Reference Range Interpretation Comments TSH, THIRD GENERATION (test >100.000 UIU/ML code = 2821) [id number] 00:00:00 Test Item Value Reference Range Interpretation Comments TSH, THIRD GENERATION (test >100.000 UIU/ML code = 2821) COMPREHENSIVE METABOLIC [id number] 00:00:00 Test Item Value Reference Range Interpretation Comments GLUCOSE (test code = 2217) 103 MG/DL BUN (test code = 2208) 35 MG/DL CREATININE (test code = 2214) 6.37 MG/DL eGFR AMER. (test code 11 ML/MIN/1.73 = 40861) eGFR NON- AMER. (test 9 ML/MIN/1.73 code = 31322) CALC BUN/CREAT (test code = 5 RATIO [...] code = 2219) 10 U/L COMPREHENSIVE METABOLIC [id number] 00:00:00 Test Item Value Reference Range Interpretation Comments GLUCOSE (test code = 2217) 103 MG/DL BUN (test code = 2208) 35 MG/DL CREATININE (test code = 2214) 6.37 MG/DL eGFR AMER. (test code 11 ML/MIN/1.73 = 98766) eGFR NON- AMER. (test 9 ML/MIN/1.73 code = 45030) CALC BUN/CREAT (test code = 5 RATIO [...] (test code = 2219) 10 U/L LIPID [id number] 00:00:00 Test Item Value Reference Range Interpretation Comments CHOLESTEROL (test code = 2210) 240 MG/DL TRIGLYCERIDES (test code = 2232) 395 MG/DL HDL CHOLESTEROL (test code = 2220) 55 MG/DL CALC LDL CHOL (test code = 2237) 106 MG/DL RISK RATIO LDL/HDL (test code = 1.93 RATIO 2238) LIPID [id number] 00:00:00 Test Item Value Reference Range Interpretation Comments CHOLESTEROL (test code = 2210) 240 MG/DL TRIGLYCERIDES (test code = 2232) 395 MG/DL HDL CHOLESTEROL (test code = 2220) 55 MG/DL CALC LDL CHOL (test code = 2237) 106 MG/DL RISK RATIO LDL/HDL (test code = 1.93 RATIO 2238) CBC W/AUTO [id number] 00:00:00 Test Item Value Reference Range Interpretation [...] code = 1015) 327 K/UL CBC W/AUTO [id number] 00:00:00 Test Item Value Reference Range Interpretation [...] code = 1015) 327 K/UL CBC W/AUTO [id number] 00:00:00 Test Item Value Reference Range Interpretation [...] (test code = 1015) 327 K/UL HEMOGLOBIN [id number] 00:00:00 Test Item Value Reference Range Interpretation Comments HEMOGLOBIN A1c (test code = 32069) 6.2 % HEMOGLOBIN [id number] 00:00:00 Test Item Value Reference Range Interpretation Comments HEMOGLOBIN A1c (test code = 57043) 6.2 % HEMOGLOBIN [id number] 00:00:00 Test Item Value Reference Range Interpretation Comments HEMOGLOBIN A1c (test code = 15289) 6.2 % [id number] 00:00:00 Test Item Value Reference Range Interpretation Comments TSH, THIRD GENERATION (test >100.000 UIU/ML code = 2821) [id number] 00:00:00 Test Item Value Reference Range Interpretation Comments TSH, THIRD GENERATION (test >100.000 UIU/ML code = 2821) [id number] 00:00:00 Test Item Value Reference Range Interpretation Comments TSH, THIRD GENERATION (test >100.000 UIU/ML code = 2821) COMPREHENSIVE METABOLIC [id number] 00:00:00 Test Item Value Reference Range Interpretation Comments GLUCOSE (test code = 2217) 103 MG/DL BUN (test code = 2208) 35 MG/DL CREATININE (test code = 2214) 6.37 MG/DL eGFR AMER. (test code 11 ML/MIN/1.73 = 07466) eGFR NON- AMER. (test 9 ML/MIN/1.73 code = 99163) CALC BUN/CREAT (test code = 5 RATIO [...] code = 2219) 10 U/L COMPREHENSIVE METABOLIC [id number] 00:00:00 Test Item Value Reference Range Interpretation Comments GLUCOSE (test code = 2217) 103 MG/DL BUN (test code = 2208) 35 MG/DL CREATININE (test code = 2214) 6.37 MG/DL eGFR AMER. (test code 11 ML/MIN/1.73 = 57512) eGFR NON- AMER. (test 9 ML/MIN/1.73 code = 37892) CALC BUN/CREAT (test code = 5 RATIO [...] (test code = 2219) 10 U/L LIPID [id number] 00:00:00 Test Item Value Reference Range Interpretation Comments CHOLESTEROL (test code = 2210) 240 MG/DL TRIGLYCERIDES (test code = 2232) 395 MG/DL HDL CHOLESTEROL (test code = 2220) 55 MG/DL CALC LDL CHOL (test code = 2237) 106 MG/DL RISK RATIO LDL/HDL (test code = 1.93 RATIO 2238) LIPID [id number] 00:00:00 Test Item Value Reference Range Interpretation Comments CHOLESTEROL (test code = 2210) 240 MG/DL TRIGLYCERIDES (test code = 2232) 395 MG/DL HDL CHOLESTEROL (test code = 2220) 55 MG/DL CALC LDL CHOL (test code = 2237) 106 MG/DL RISK RATIO LDL/HDL (test code = 1.93 RATIO 2238) CBC W/AUTO [id number] 00:00:00 Test Item Value Reference Range Interpretation [...] code = 1015) 327 K/UL CBC W/AUTO [id number] 00:00:00 Test Item Value Reference Range Interpretation [...] code = 1015) 327 K/UL CBC W/AUTO [id number] 00:00:00 Test Item Value Reference Range Interpretation [...] (test code = 1015) 327 K/UL HEMOGLOBIN [id number] 00:00:00 Test Item Value Reference Range Interpretation Comments HEMOGLOBIN A1c (test code = 71438) 6.2 % HEMOGLOBIN [id number] 00:00:00 Test Item Value Reference Range Interpretation Comments HEMOGLOBIN A1c (test code = 97984) 6.2 % HEMOGLOBIN [id number] 00:00:00 Test Item Value Reference Range Interpretation Comments HEMOGLOBIN A1c (test code = 44119) 6.2 % [id number] 00:00:00 Test Item Value Reference Range Interpretation Comments TSH, THIRD GENERATION (test >100.000 UIU/ML code = 2821) [id number] 00:00:00 Test Item Value Reference Range Interpretation Comments TSH, THIRD GENERATION (test >100.000 UIU/ML code = 2821) [id number] 00:00:00 Test Item Value Reference Range Interpretation Comments TSH, THIRD GENERATION (test >100.000 UIU/ML code = 2821) COMPREHENSIVE METABOLIC [id number] 00:00:00 Test Item Value Reference Range Interpretation Comments GLUCOSE (test code = 2217) 103 MG/DL BUN (test code = 2208) 35 MG/DL CREATININE (test code = 2214) 6.37 MG/DL eGFR AMER. (test code 11 ML/MIN/1.73 = 75418) eGFR NON- AMER. (test 9 ML/MIN/1.73 code = 44370) CALC BUN/CREAT (test code = 5 RATIO [...] code = 2219) 10 U/L COMPREHENSIVE METABOLIC [id number] 00:00:00 Test Item Value Reference Range Interpretation Comments GLUCOSE (test code = 2217) 103 MG/DL BUN (test code = 2208) 35 MG/DL CREATININE (test code = 2214) 6.37 MG/DL eGFR AMER. (test code 11 ML/MIN/1.73 = 60004) eGFR NON- AMER. (test 9 ML/MIN/1.73 code = 37991) CALC BUN/CREAT (test code = 5 RATIO [...] (test code = 2219) 10 U/L LIPID [id number] 00:00:00 Test Item Value Reference Range Interpretation Comments CHOLESTEROL (test code = 2210) 240 MG/DL TRIGLYCERIDES (test code = 2232) 395 MG/DL HDL CHOLESTEROL (test code = 2220) 55 MG/DL CALC LDL CHOL (test code = 2237) 106 MG/DL RISK RATIO LDL/HDL (test code = 1.93 RATIO 2238) LIPID [id number] 00:00:00 Test Item Value Reference Range Interpretation Comments CHOLESTEROL (test code = 2210) 240 MG/DL TRIGLYCERIDES (test code = 2232) 395 MG/DL HDL CHOLESTEROL (test code = 2220) 55 MG/DL CALC LDL CHOL (test code = 2237) 106 MG/DL RISK RATIO LDL/HDL (test code = 1.93 RATIO 2238) CBC W/AUTO [id number] 00:00:00 Test Item Value Reference Range Interpretation [...] code = 1015) 327 K/UL CBC W/AUTO [id number] 00:00:00 Test Item Value Reference Range Interpretation [...] code = 1015) 327 K/UL CBC W/AUTO [id number] 00:00:00 Test Item Value Reference Range Interpretation [...] (test code = 1015) 327 K/UL HEMOGLOBIN [id number] 00:00:00 Test Item Value Reference Range Interpretation Comments HEMOGLOBIN A1c (test code = 41107) 6.2 % HEMOGLOBIN [id number] 00:00:00 Test Item Value Reference Range Interpretation Comments HEMOGLOBIN A1c (test code = 17732) 6.2 % HEMOGLOBIN [id number] 00:00:00 Test Item Value Reference Range Interpretation Comments HEMOGLOBIN A1c (test code = 10833) 6.2 % [id number] 00:00:00 Test Item Value Reference Range Interpretation Comments TSH, THIRD GENERATION (test >100.000 UIU/ML code = 2821) [id number] 00:00:00 Test Item Value Reference Range Interpretation Comments TSH, THIRD GENERATION (test >100.000 UIU/ML code = 2821) [id number] 00:00:00 Test Item Value Reference Range Interpretation Comments TSH, THIRD GENERATION (test >100.000 UIU/ML code = 2821)
--- NOTE | 2022-12-07 10:09 | RAD REPORT ---
EXAM DESCRIPTION: CT - Head Brain Wo Cont - 12/07/2022 9:43 am CLINICAL HISTORY: HTN, trouble speaking and writing COMPARISON: Ct Stroke Brain Wo Cont dated 10/15/2022; Head Brain Wo Cont dated 06/24/2020 TECHNIQUE: Noncontrast head CT images were obtained without IV contrast. Multiplanar reformats were generated and reviewed. All CT scans are performed using dose optimization technique as appropriate and may include automated exposure control or mA/KV adjustment according to patient size. FINDINGS: No intracranial hemorrhage, mass, or edema. Midline structures are unremarkable. Normal ventricular caliber for age. Garcia-white matter differentiation is preserved, without evidence of acute infarct. Left middle crania l fossa CSF density collection, stable, suggestive of a small arachnoid cyst. No other abnormal extra -axial fluid collections. Stable pattern of anterior periventricular white matter hypodensities, nonspecific but most suggestiv e of chronic small vessel ischemic changes. Mastoid air cells and visualized portions of the paranasal sinuses are clear. No acute bony findings. IMPRESSION: No evidence of an acute intracranial process. Stable chronic findings as above.
--- NOTE | 2022-12-07 10:14 | RAD REPORT ---
EXAM DESCRIPTION: US - Hemodialysis Graft - 12/07/2022 10:03 am CLINICAL HISTORY: left arm, evaluate dialysis fistula COMPARISON: Extrem Venous W Compress Sami dated 05/12/2022 TECHNIQUE: Left upper extremity arterial Doppler examination was performed with waveform tracing. FINDINGS: Hypoechoic thrombus with no appreciable flow throughout the extent of the arteriovenous fistula start ing at the anastomosis. Maintained arterial flow of the brachial artery to the level of the anastomosis. Hypoechoic thrombosis with no appreciable flow or compressibility of the basilic vein from the level of the distal upper arm to the wrist. IMPRESSION: Acute appearing thrombus of the basilic vein, from the level of the distal upper arm to the wrist. Hypoechoic thrombus with no appreciable flow throughout the arteriovenous fistula, of indeterminate a ge.
[2022-12-07 10:23] LABS: Absolute Lymphocytes (CBC) 1.2 K/uL (0.7-4.9); Hematocrit 35.1 % (39.6-49.0); Lymphocytes % 9.9 % (15.3-44.8); MCV 99.8 fL (80-100); Platelets 300 thou/uL (152-406); RBC Red Blood Cell Count 3.52 M/uL (4.33-5.43)
[2022-12-07 10:31] LABS: Protime INR 0.95
--- NOTE | 2022-12-07 10:34 | ER ---
Nurse's Notes [facility] Name: Alejandro Dunbar Age: 57 yrs Sex: Male : 1965 Arrival Date: 12/07/2022 Time: 09:07 Bed 11 Private MD: Diagnosis: Occlusion of dialysis AV fistula Presentation: 12/07 09:17 Chief complaint: Patient states: dialysis fistula stopped working today when he went eh3 for dialysis, doctor advised him to go to ED for HTN. Coronavirus screen: Vaccine status: Patient reports receiving the 2nd dose of the covid vaccine. Ebola Screen: No symptoms or risks identified at this time. Initial Sepsis Screen: Does the patient meet any 2 criteria? No. Patient's initial sepsis screen is negative. Does the patient have a suspected source of infection? No. Patient's initial sepsis screen is negative. Risk Assessment: Do you want to hurt yourself or someone else? Patient reports no desire to harm self or others. Onset of symptoms was December 07, 2022. 09:17 Method Of Arrival: Ambulatory 3 09:17 Acuity: KERRI 3 eh3 Triage Assessment: 09:20 General: Appears in no apparent distress. comfortable, Behavior is calm, cooperative, eh3 appropriate for age. Pain: Denies pain. Historical: - PMHx: 09:20 Diabetes - NIDDM; Dialysis; High Cholesterol; Hypertension; Hypothyroidism; eh3 - PSHx: 09:20 tracheostomy; eh3 - Immunization history:: Adult Immunizations up to date. - Social history:: Smoking status: Patient denies any tobacco usage or history of. - Family history:: not pertinent. - Hospitalizations: : No recent hospitalization is reported. Screenin:45 [facility] ED Fall Risk Assessment (Adult) History of falling in the last 3 months, tf2 including since admission No falls in past 3 months (0 pts) Confusion or Disorientation No (0 pts) Intoxicated or Sedated No (0 pts) Impaired Gait Yes (1 pt) Mobility Assist Device Used No (0 pt) Altered Elimination No (0 pt) Score/Fall Risk Level 0 - 2 = Low Risk Oriented to surroundings, Maintained a safe environment, Educated pt \T\ family on fall prevention, incl call for assistance when getting out of bed, Provided non-skid footwear, Hourly rounding (assess needs \T\ fall precautionary measures) done, Used ambulatory aids as needed (educated on \T\ assisted with). 09:45 Abuse screen: Denies threats or abuse. Denies injuries from another. Nutritional tf2 screening: No deficits noted. Tuberculosis screening: No symptoms or risk factors identified. Assessment: 10:46 General: Appears in no apparent distress. Pain: Complains of pain in right leg and left tf2 leg. Neuro: Reports trouble recalling words and writing since yesterday;. Cardiovascular: No deficits noted. Respiratory: No deficits noted. GI: No deficits noted. : No signs and/or symptoms were reported regarding the genitourinary system. EENT: No deficits noted. No signs and/or symptoms were reported regarding the EENT system. Derm: No deficits noted. Musculoskeletal: Reports weakness in right leg and left leg pt c/o weakness and difficulty walking due to pain in both legs; denies numbness/weakness. Vital Signs: 09:17 BP 184 / 84; Pulse 66; Resp 16; Temp 97.1(TE); Pulse Ox 98% on R/A; Weight 73.03 kg; eh3 Height 5 ft. 4 in. ; 09:45 BP 183 / 88; Pulse 72; Resp 14; Pulse Ox 99% on R/A; tf2 10:46 BP 165 / 76; Pulse 67; Resp 17; Pulse Ox 99% on R/A; Pain 3/10; tf2 09:17 Body Mass Index 27.64 (73.03 kg, 162.56 cm) eh3 10:46 Pain Scale: Adult tf2 [place] Coma Score: 09:45 Eye Response: spontaneous(4). Motor Response: obeys commands(6). Verbal Response: tf2 oriented(5). Total: 15. ED Course: 09:10 Patient arrived in ED. mr 09:11 Tomas Cast MD is Attending Physician. rn 09:20 Triage completed. eh3 09:20 Arm band placed on. eh3 09:33 Shelby Michele, SANJAY is Primary Nurse. tf2 09:43 CT Head Brain wo Cont In Process Unspecified. EDMS 09:45 No apparent distress. tf2 09:45 Patient has correct armband on for positive identification. Bed in low position. Call tf2 light in reach. Side rails up X2. Provided Education on: transfer pending to [facility]. 09:45 No provider procedures requiring assistance completed. tf2 10:05 Hemodialysis Graft In Process Unspecified. EDMS 10:11 Inserted saline lock: 20 gauge in right antecubital area, using aseptic technique. ds4 Blood collected. 10:41 initiated transfer to [facility]. bd 11:14 Patient requests rest room assistance. pt assisted to bathroom via WC. Had BM; [facility]; call light in reach. 11:35 pt accepted in transfer to [facility] by dr Jones Vizcaino, admin approval given by darian Greene, pt going to ER. 11:48 No apparent distress. Resting quietly. Report called to [facility] ER, SANJAY Bullard. tf2 13:29 No apparent distress. tf2 13:29 Patient transferred, IV remains in place. intact. tf2 Administered Medications: 11:34 Drug: Heparin ([place]-Bolus No thrombolytic) - HEParin IVP 60 units/kg {Co-Signature: ss tf2 (Isabel Dennis RN).} {Note: 5000 units given as ordered by Dr. Cast, though protocol calls for 4500 units. .} Route: IVP; Site: right antecubital; 11:35 Drug: Heparin (DVT/PE Drip) - ([place] [address] units, D5W IV 500 ml) 18 units/kg/hr tf2 {Co-Signature: ss (Isabel Dennis RN).} Route: IV; Rate: calculated rate; Site: right antecubital; Medication: 09:45 VIS not applicable for this client. tf2 Outcome: 10:33 ER care complete, transfer ordered by . rn 13:29 Transferred by ground EMS to [facility]. tf2 13:29 Condition: stable 13:51 Patient left the ED. ss Signatures: Dispatcher [employer] EDMS Earline Wiley BearPiper Roman, MD MD rn Blanchard, Shelby, SANJAY RN ss Skip Chaparro ds4 Janay Marshall RN RN 3 Shelby Michele RN RN tf2 Isabel Dennis RN ss
--- NOTE | 2022-12-07 10:34 | EDPHYS ---
Physician Documentation [facility] Name: Alejandro Dunbar Age: 57 yrs Sex: Male : 1965 Arrival Date: 12/07/2022 Time: 09: Bed 11 Private MD: ED Physician Tomas Cast HPI: 12/07 10:25 This 57 yrs old Male presents to ER via Ambulatory with complaints of High rn Blood Pressure, problem with fistula. 10:25 Pt sent by dialysis for dialysis fistula not working. NO trauma. Last dialysis Wednesday, rn attempted cannulation today and unable to perform dialysis. Also reports yesterday began with trouble finding words and writing what he wants. + generalized weakness and fatigue. No unilateral symptoms. No vision changes. . Onset: The symptoms/episode began/occurred at an unknown time. Severity of symptoms: At their worst the symptoms were mild in the emergency department the symptoms are unchanged. The patient has not experienced similar symptoms in the past. The patient has been recently seen by a physician:. Historical: - PMHx: 09:20 Diabetes - NIDDM; Dialysis; High Cholesterol; Hypertension; Hypothyroidism; eh3 - PSHx: 09:20 tracheostomy; eh3 - Immunization history:: Adult Immunizations up to date. - Social history:: Smoking status: Patient denies any tobacco usage or history of. - Family history:: not pertinent. - Hospitalizations: : No recent hospitalization is reported. ROS: 10:25 Constitutional: Negative for fever, chills, and weight loss, Cardiovascular: Negative rn for chest pain, palpitations, and edema, Respiratory: Negative for shortness of breath, cough, wheezing, and pleuritic chest pain, Abdomen/GI: Negative for abdominal pain, nausea, vomiting, diarrhea, and constipation, Back: Negative for injury and pain, MS/Extremity: + left arm fistula not working Skin: Negative for injury, rash, and discoloration, Neuro: Negative for headache, numbness, tingling, and seizure. Exam: 10:25 Constitutional: This is a well developed, well nourished patient who is awake, alert, rn and in no acute distress. Head/Face: Normocephalic, atraumatic. Eyes: Pupils equal round and reactive to light, extra-ocular motions intact. Cardiovascular: Regular rate and rhythm. No pulse deficits. Respiratory: No increased work of breathing, no retractions or nasal flaring. Abdomen/GI: soft, non-tender Skin: Warm, dry MS/ Extremity: No cyanosis, no thrill palpated left arm fistula Neuro: Awake and alert, GCS 15 Vital Signs: 09:17 BP 184 / 84; Pulse 66; Resp 16; Temp 97.1(TE); Pulse Ox 98% on R/A; Weight 73.03 kg; eh3 Height 5 ft. 4 in. ; 09:45 BP 183 / 88; Pulse 72; Resp 14; Pulse Ox 99% on R/A; tf2 10:46 BP 165 / 76; Pulse 67; Resp 17; Pulse Ox 99% on R/A; Pain 3/10; tf2 09:17 Body Mass Index 27.64 (73.03 kg, 162.56 cm) eh3 10:46 Pain Scale: Adult tf2 [place] Coma Score: 09:45 Eye Response: spontaneous(4). Motor Response: obeys commands(6). Verbal Response: tf2 oriented(5). Total: 15. MDM: 09:11 Patient medically screened. rn 10:29 Differential Diagnosis fistula occlusion, HTN. Data reviewed: vital signs, nurses rn notes, lab test result(s), radiologic studies, ultrasound, and as a result, I will admit patient. Consideration of Admission/Observation Patient was admitted/placed on observation. Escalation of care including admission/observation considered. Counseling: I had a detailed discussion with the patient and/or guardian regarding: the historical points, exam findings, and any diagnostic results supporting the discharge/admit diagnosis, lab results, radiology results, the need for further work-up and treatment in the hospital, the need to transfer to another facility, for higher level of care, [facility] does not immediately have the required specialist. Special discussion:. 12/07 09:30 Order name: CBC with Diff; Complete Time: 10:34 rn 12/07 09:30 Order name: Basic Metabolic Panel; Complete Time: 10:45 rn 12/07 09:30 Order name: Protime (+inr); Complete Time: 10:45 rn 12/07 09:30 Order name: Ptt, Activated; Complete Time: 10:45 rn 12/07 09:30 Order name: CT Head Brain wo Cont; Complete Time: 10:15 rn 12/07 09:36 Order name: Hemodialysis Graft; Complete Time: 10:15 EDMS 12/07 09:30 Order name: IV Start; Complete Time: 10:11 rn Administered Medications: 11:34 Drug: Heparin ([place]-Bolus No thrombolytic) - HEParin IVP 60 units/kg {Co-Signature: ss tf2 (Isabel Dennis RN).} {Note: 5000 units given as ordered by Dr. Cast, though protocol calls for 4500 units. .} Route: IVP; Site: right antecubital; 11:35 Drug: Heparin (DVT/PE Drip) - ([place] [address] units, D5W IV 500 ml) 18 units/kg/hr tf2 {Co-Signature: ss (Isabel Dennis RN).} Route: IV; Rate: calculated rate; Site: right antecubital; Disposition Summary: 12/07/22 10:33 Transfer Ordered Transfer Location: [facility] rn Reason: Higher level of care rn Condition: Stable rn Problem: new rn Symptoms: are unchanged rn Accepting Physician: (12/07/22 13:51) ss Diagnosis - Occlusion of dialysis AV fistula rn Forms: - Medication Reconciliation Form rn - SBAR form rn Signatures: Dispatcher [employer] [facility] Tomas Cast MD MD rn Blanchard, Shelby, SANJAY RN ss Janay Marshall RN RN 3 Shelby Michele RN RN tf2 Isabel Dennis RN ss Corrections: (The following items were deleted from the chart) 09:36 09:31 Extremity Venous [email or web address] ordered. [facility] EDFL 13:51 10:33 Dr. almonte ss
[2022-12-07 10:41] LABS: Potassium 5.5 mEq/L (3.5-5.1)
[2022-12-07] MEDS ORDERED: HEPARIN 5000 UNIT/ML 1 ML VIAL ONE (11:32)
[2022-12-07] MEDS ORDERED: HEPARIN/D5W 25,000 UNIT/500 ML BAG IV ONE (11:33)
[2022-12-07 14:08] VITALS: TEMP 97.1
[2022-12-07 14:09] VITALS: O2SAT 99
[2022-12-07 14:10] VITALS: BP 165/76
== END 2022-12-07 13:51 | disposition short-term general hospital (02) ==
LOC: ER 09:07
DX: T82.590A Other mechanical complication of surgically created arteriovenous fistula, initial encounter (principal); R53.1 Weakness; R53.83 Other fatigue; I10 Essential (primary) hypertension
CPT/HCPCS: 85025; 80048; 36415; 85610; 85730; 70450; 93990; 96374; 99285; J1644

== ENCOUNTER 2023-02-02 15:13 | Emergency (ER) | payer OTHER ==
--- OUTSIDE RECORDS SUMMARY | 2023-02-02 15:35 | XMS REPORT | Continuity of Care Document ---
:1965 Author Organization [facility] t Address [address] [facility] [address] [place] [address] Care Team Providers Name Role Phone Asked, No Pcp Primary Care Physician Unavailable [id number] Attending Clinician Unavailable IRMA NICHOLSON Attending Clinician Unavailable SYLVAIN OLIVARES Attending Clinician Unavailable Kadi GRACE, Zohaib Ward Attending Clinician Unavailable HO VIZCAINO JR Attending Clinician Unavailable Charis Rivas MD, Michael B Attending Clinician Radha Parada MD Attending Clinician Doctor Unassigned, [place] Attending Clinician Unavailable Karmen GRACE, Bambi Gardner Attending Clinician Unavailable JIM LANDEROS Attending Clinician Unavailable JIM LANDEROS Attending Clinician Unavailable Adama Page MD Attending Clinician Molly Fisher MD Attending Clinician HO DENNISON Attending Clinician Unavailable JACINTO SIMPSON Attending Clinician Unavailable JOSELUIS FERNANDEZ Attending Clinician Unavailable GERRI VINCENT Attending Clinician Unavailable Stephani Mcginnis Anavella Attending Clinician Unabibi ilable Provider, Undefined Attending Clinician Unavailable Mami [...] Clinician Unavailable HUNTER GIPSON Attending Clinician Unavailable [id number] Admitting Clinician Unavailable IRMA NICHOLSON Admitting Clinician Unavailable SYLVAIN OLIVARES Admitting Clinician Unavailable HO VIZCAINO JR Admitting Clinician Unavailable Charis Rivas MD, Michael B Admitting Clinician JIM LANDEROS Admitting Clinician Unavailable GERRI VINCENT Admitting Clinician Unavailable Leo Mcginnis Anav Admitting Clinician Unavailable BETTINA SHEEHAN Admitting Clinician Unavailable Payers Payer Name Policy Type Policy Number Effective Date Expiration Date S tammie CDC REVIEW [id number] 2019 00:00:00 [place]ID [place] [id number] 2019 00:00:00 [facility] [id number] MEDICARE PART A [id number] 2018 \T\ B 00:00:00 Problems Condition Condition Condition Status Onset Resolution Last Treating Co mments Source Name Details Category Date Date Treatment Clinician Date Clotted Clotted Disease Active Univers renal renal 8-07 ity of dialysis dialysis 00:00: [place] AV graft, AV graft, [address] [facility] sequela sequela Branch Thrombosis Thrombosis Disease Active U nivers of of 6-04 ity of dialysis dialysis 00:00: [place] shunt, shunt, 00 Medical initial initial Branch encounter encounter Nonobstruc Nonobstruc Disease Active U nivers tive tive 4-20 [place]y of atheroscle atheroscle [place] rosis of rosis of 00 Medica l coronary coronary Branch artery artery Volume Volume Disease Active [facility]: [facility] 00 [place] Groin Groin Disease Active [facility] pain, pain, 8 [facility] chronic, chronic, 00:[facility]: Medica l right right 00 Center Pre-transp Pre-transp Disease Active [facility] 12[facility]13kes evaluation evaluation 00:00: Sd dical for ESRD for ESRD 00 Center [...] [address] [facility] diabetes diabetes sce 05-23 [facility] mellitus mellitus 00:00: Medica l with with 00 Center chronic chronic kidney kidney disease on disease on chronic chronic dialysis, dialysis, without without long-term long-term current current use of use of insulin insulin Pre-transp Pre-transp Disease Active [facility] 05-23 [facility] evaluation evaluation 00:00: Me dical for for 00 Center chronic chronic kidney kidney disease disease Essential Essential Disease Active [facility] hypertensi hypertensi 05-23 [facility] on on 00:00: Medical 00 Center Dizziness Dizziness Disease Active Uni vers 9-10 ity of 00:00: [place] [id number] Medical Branch Pre-syncop Pre-syncop Disease Active U nivers e e 9-08 ity of 00:: [place] [facility] Elevated Elevated Disease Active 2017-05 Unive rs troponin I troponin I 05-04 it y of level level 00:00: [place] [id number] Medical Branch Elevated Elevated Disease Active 2017-05 Unive rs brain brain 05-04 ity of natriureti natriureti 00:[place] c peptide c peptide 00 Medi benjy (BNP) (BNP) Branch level level Essential Essential Disease Active 2017-05 Uni vers hypertensi hypertensi 05-04 it y of on on 00:00: [place] 00 Medical Branch Dyslipidem Dyslipidem Disease Active 2017-05 U nivers ia ia 05-04 ity of 00:00: [place] 00 Medical Branch Hypocalcem Hypocalcem Disease Active 2017-05 U nivers ia ia 05-03 ity of 00:00: [place] 00 Medical Branch Allergies, Adverse Reactions, Alerts Allergy [...] Active Univers ALLERGIE Class ity of S [place] [facility] Family History Family Member Diagnosis Comments Start Date Stop Date Source Natural sister Other - see [facility] Natural sister Diabetes [facility] Natural sister Kidney disease [facility] Natural sister No Known Problem [facility] Natural father Alcohol abuse [facility] Natural brother No Known Problem [facility] Natural mother No Known Problem [facility] Social History Social Habit Start Date Stop Date Quantity Comments Source History SDOH [facility] Alcohol Comment Medical C enter History of tobacco Cigarette Smoker [facility] History SDOH Social Unive rsity of [facility] [place] [facility] Branch History SDOH Social Unive rsity of [facility] Branch History SDOH Social Unive rsity of [facility] [place] [facility] Members[facility] History SDOH Social Unive rsity of [facility] [place] [facility] Meetings Branch History SDOH Social Unive rsity of Connections Living [place] [facility] Gender identity [facility] [place] [facility] Sexual orientation [facility] History SDOH [facility] Alcohol Std Drinks Medica l Center History SDOH [facility] Alcohol Binge Medical Od[facility] ter History SDOH Social 2022-10-06 2022-10-06 5 Unive rsity of Connections Phone 00:00:00 00:00:00 [place] M edical Branch History SDOH 2022-10-06 2022-10-06 0 University o f Physical Activity 00:00:00 00:00:00 [place] M edical DPW Branch History SDOH 2022-10-06 2022-10-06 0 University o f Physical Activity 00:00:00 00:00:00 [place] M edical MPS Branch History SDOH 2022-10-06 2022-10-06 5 University o f Financial 00:00:00 00:00:00 [place] [facility] History SDOH Food 2022-10-06 2022-10-06 1 Univers ity of Worry 00:00:00 00:00:00 [place] [facility] History SDOH Food 2022-10-06 2022-10-06 1 Univers ity of Scarcity 00:00:00 00:00:00 [place] [facility] History SDOH 2022-10-06 2022-10-06 2 University o f Transport Med 00:00:00 00:00:00 [place] Medic al Branch History SDOH 2022-10-06 2022-10-06 2 University o f Transport Non-Med 00:00:00 00:00:00 [place] M edical Branch History SDOH 2022-10-06 2022-10-06 2 University o f Housing Unable to 00:00:00 00:00:00 [place] M edical Pay Branch History SDOH 2022-10-06 2022-10-06 1 University o f Housing Places 00:00:00 00:00:00 [place] Medi benjy Lived Branch History SDOH 2022-10-06 2022-10-06 2 University o f Housing Homeless 00:00:00 00:00:00 [facility] [place] [facility] dical Last Year Branch Tobacco use and 2022-10-04 2022-10-04 Smokeless Universit y of exposure 00:00:00 00:00:00 tobacco non-user [facility] Exposure to 2021-11-22 2021-12-02 Not sure University [facility]-CoV-2 (event) 00:00:00 14:04:00 [facility] Alcohol intake 2019-12-17 2019-12-[address] [...] 00:00:00 Hospital Sex Assigned At [address] 00:00:00 00:00:00 [facility] Center Smoking Status Start Date Stop Date Source Never smoked tobacco [facility] Ex-smoker 2018-03-03 00:00:00 2018-03-03 00:00:00 [facility] Medications Ordered Filled Start Stop Current Ordering Indication Dosage Frequency Signature Comments Components Source Medication Medication Date Date Medication? Clinician (SIG) Name Name levothyroxi Yes 224ug 224 mcg, U nivers ne 12-11 Oral, ity of (SYNTHROID) 11:00: QAM-0600, [place] tablet 224 00 First dose Med ical mcg (after Branch last modificati on) on Wed12/11/22 at 0600, Until Discontinu ed, Routine levothyroxi No 224ug 224 mcg, Univers ne 8- 08-10 Oral, ity of (SYNTHROID) 13:22: 14:01 QAM-0600, [place] tablet 224 00 :00 1 dose, Medica l mcg First dose Branch on [place] 12/10/22 at 0830, Routine sevelamer Yes 1600mg 1,600 mg, U nivers (RENVELA) 8-10 Oral, TID ity o f tablet 13:00: MEALS, [place] 1,600 mg 00 First dose Medic al (after [place] last modificati on) on [place] 12/10/22 at 0800, Until Discontinu ed, Routine alteplase 2022- No PRN, Univers (CATHFLO 12-08 Starting ity of ACTIVASE) 23:13: 23:13 on Wed [place] injection 46 :46 12/08/22 at [facility] al 1813, Branch Until Wed12/08/22 at 1813, Routine heparin 2022- No PRN, Univers 1,000 12-08 Starting ity of unit/mL 22:50: 23:37 on Wed [place] injection 36 :24 12/08/22 at [facility] 1750, Branch Until Wed12/08/22 at 1837, Routine, Intra-op midazolam 2022- No IV Push, Uni vers (VERSED) 12-08 PRN, ity of injection 22:00: 23:04 Starting [place] as 12 :26 on [facility] 12/08/22 at Branch 1700, Until [facility] 12/08/22 at 1804, Routine, Intra-op FENTanyl PF 2022- No Slow IV Un capri (SUBLIMAZE 12-08 Push, PRN, it y of (PF)) 21:59: 23:36 Starting [place] injection 40 :35 on [facility] 12/08/22 at Branch 1659, Until [facility] 12/08/22 at 1836, Routine, Intra-op lidocaine 2022- No PRN, Univers 1% (PF) 12-08 Starting ity of (XYLOCAINE) 21:58: 21:58 on [facility] Tony as injection 11 :11 12/08/22 at [facility] 1658, Branch Until Wed12/08/22 at 1658, Routine, Intra-op ceFAZolin 2022- No CONTINUOUS U nivers (ANCEF) 12-08 PRN, ity of 1,000 mg in 21:54: 21:54 [place] NaCl 0.9% 57 :57 on [facility] Medical (NS) 100 mL 12/08/22 at [facility] [address] MINI-BAG 1654, Until Wed12/08/22 at 1654, Administer over 30 Minutes, 100 mL, Intra-op sodium 2022- No 15g 15 g, Univers polystyrene 12-08 Oral, ity of sulfonate 14:45: 14:22 ONCE, 1 [place] (KAYEXALATE 00 :00 dose, On Medi benjy ) 15 Wed12/08/22 Branch gram/60 mL at 0945, suspension Routine 15 g insulin 2022- No 10U 10 Units, Univ ers regular 12-08 Slow IV ity of human 14:45: 16:07 Push, [place] (HUMULIN R) 00 :00 ONCE, 1 Medic al injection dose, On Branch 10 Units Wed12/08/22 at 0945, Routine
Indicatio n for insulin: Hyperkalem ia- Please use the Insulin Protocol for Hyperkalem ia order set dextrose No 250mL 250 mL, IV U nivers 10% (D10W) 12-08 Infusion, ity of bolus 14:45: 15:34 ONCE, [place] infusion 00 :00 Administer Medic al 250 mL over 60 Branch Minutes, On Wed12/08/22 at 0945, For 1 dose
De xtrose 10% 250 mL bag contains:& nbsp;10 gm = 100 mL 20 gm = 200 mL 25 gm = 250 mL (whole bag) The maximum rate at which dextrose can be infused without producing glycosuria is 0.5 g/kg/hour. &nbs p;BUD: If wrapper is open bag is good for 30 days at room temperatur e.
furosemide No 80mg 80 mg, Univ ers (LASIX) 12-08 Slow IV ity of injection 14:45: 14:22 Push, [place] 80 mg 00 :00 ONCE, 1 Medical dose, On Branch Wed12/08/22 at 0945, Routine polyethylen Yes 17g 17 g, Unive rs e glycol 12-08 Oral, QAM, ity o f 3350 powder 14:00: First dose [place] 17 g 00 on [facility] 12/08/22 at Branch 0900, Until Discontinu ed, Routine foLIC acid 2022-0 Yes 1mg 1 mg, Univer s (FOLATE) 12-08 Oral, ity of tablet 1 mg 14:00: DAILY, [place] 00 First dose Medical on [facility] 12/08/22 at 0900, Until Discontinu ed, Routine docusate 2022-0 Yes 100mg 100 mg, Unive rs (COLACE) 12-08 Oral, ity of capsule 100 14:00: DAILY, [place] mg 00 First dose Medical on [facility] 12/08/22 at 0900, Until Discontinu ed, Routine cetirizine 2022-0 Yes 10mg 10 mg, Unive rs (ZYRTEC) 12-08 Oral, ity of tablet 10 14:00: DAILY, [place] mg 00 First dose Medical on [facility] 12/08/22 at 0900, Until Discontinu ed, Routine aspirin 2022-0 Yes 81mg 81 mg, Univers chewable 12-08 Oral, ity of tablet 81 14:00: DAILY, [place] mg 00 First dose Medical on [facility] 12/08/22 at 0900, Until Discontinu ed, Routine amLODIPine 2022-0 Yes 10mg 10 mg, Unive rs (NORVASC) 12-08 Oral, ity of tablet 10 14:00: DAILY, [place] mg 00 First dose Medical on [facility] 12/08/22 at 0900, Until Discontinu ed, Routine levothyroxi 2022-0 202- No 224ug 224 mcg, Univers ne 12-08 08-10 Oral, QAM, ity of (SYNTHROID) 14:00: 12:37 First dose [place] tablet 224 00 :37 on [facility] 12/08/22 at Branch 0900, Until Discontinu ed, Routine atorvastati 2022-0 Yes 40mg 40 mg, Univ ers n (LIPITOR) 12-08 Oral, QHS, it y of tablet 40 02:00: First dose [place] mg 00 on [facility] 12/07/22 at Branch 2100, Until Discontinu ed, Routine sennosides 2022-0 Yes 8.6mg 8.6 mg, Uni vers (SENOKOT) 8-08 Oral, BID, ity of tablet 8.6 01:00: First dose [place] mg 00 on [facility] 12/07/22 at [place] 1999, Until Discontinu ed, Routine predniSONE Yes 20mg 20 mg, Unive rs (DELTASONE) 12-08 Oral, BID, it y of tablet 20 01:00: First dose [place] mg 00 on [facility] 12/07/22 at [place] 1999, Until Discontinu ed, Routine gabapentin Yes 100mg 100 mg, Uni vers (NEURONTIN) 12-08 Oral, TID, it y of capsule 100 01:00: First dose [place] mg 00 on [facility] 12/07/22 at [place] 1999, Until Discontinu ed, Routine insulin No 10U 10 Units, Univ ers regular 12-07 Slow IV ity of human 23:00: 02:08 Push, [place] (HUMULIN R) 00 :00 ONCE, 1 Medic al injection dose, On Branch 10 Units [facility] 12/07/22 at 1800, Routine
Indicatio n for insulin: Hyperkalem ia- Please use the Insulin Protocol for Hyperkalem ia order set dextrose No 250mL 250 mL, IV U nivers 10% (D10W) 12-07 Infusion, ity of bolus 23:00: 02:22 ONCE, [place] infusion 00 :00 Administer Medic al 250 mL over 60 Branch Minutes, On Wed12/07/22 at 1800, For 1 dose
De xtrose 10% 250 mL bag contains:& nbsp;10 gm = 100 mL 20 gm = 200 mL 25 gm = 250 mL (whole bag) The maximum rate at which dextrose can be infused without producing glycosuria is 0.5 g/kg/hour. &nbs p;BUD: If wrapper is open bag is good for 30 days at room temperatur e.
sodium 2022- No 15g 15 g, Univers polystyrene 12-07 Oral, ity of sulfonate 23:00: 01:22 ONCE, 1 [place] (KAYEXALATE 00 :00 dose, On [facility] benjy ) 15 [facility] 8/7/23 Branch gram/60 mL at 1800, suspension Routine 15 g furosemide 2022- No 80mg 80 mg, Univ ers (LASIX) 12-07 Slow IV ity of injection 22:12: 01:19 Push, [place] 80 mg 00 :00 ONCE, 1 Medical dose, On Branch Wed12/07/22 at 1715, STAT calcium Yes 1000mg 1,000 mg, Uni vers carbonate 12-07 Oral, TID ity o f (OSCAL-500) 22:00: MEALS, [place] tablet 00 First dose Medical 1,000 mg on [facility] 12/07/22 at 1700, Until Discontinu ed, Routine sevelamer 2022- No 800mg 800 mg, Uni vers (RENVELA) 12-07 Oral, TID ity of tablet 800 22:00: 23:48 MEALS, [place] mg 00 :45 First dose Medical on [facility] 12/07/22 at 1700, Until Discontinu ed, Routine diphenhydrA Yes 25mg 25 mg, [facility] ers MINE 12-07 Oral, ity of (BENADRYL) 20:46: Q6HPRN, [place] tablet 25 31 Starting Medica l mg on [facility] Branch 12/07/22 at 1546, Until Discontinu ed, Routine, Itching HYDROcodone Yes 1{tbl} 1 tablet, Univers -acetaminop 12-07 Oral, ity of hen (NORCO 20:46: Q4HPRN, [place] 5) 5-325 mg 02 Starting Medi benjy tablet 1 on [facility] tablet 12/07/22 at 1546, Until Discontinu ed, Routine, Pain (scale 4-6) acetaminoph Yes 650mg 650 mg, Un capri en 12-07 Oral, ity of (TYLENOL) 20:45: Q6HPRN, [place] tablet 650 59 Starting Medic al mg on [facility] 12/07/22 at 1545, Until Discontinu ed, Routine, Pain (scale 1-3) naloxone Yes .1mg 0.1 mg, Univer s (NARCAN) 12-07 Intravenou ity o f injection 20:45: s, PRN - [place] 0.1 mg 57 SEE Medical INSTRUCTIO Branch NS, Starting on Wed12/07/22 at 1545, Until Discontinu ed, PALOMO, Sedation/R espiratory Depression ondansetron Yes 4mg 4 mg, Slow Univers (ZOFRAN 12-07 IV Push, ity of (PF)) 20:45: Q6HPRN, [place] injection 4 54 Starting Medi benjy mg on [facility] 12/07/22 at 1545, Until Discontinu ed, Routine, Nausea and Vomiting (N/V) meclizine 0 Yes 25mg 25 mg, Univer s (TRAVEL-EAS 8 Oral, ity of E 20:41: TIDPRN, [place] (MECLIZINE) 09 Starting Medi benjy ) tablet 25 on [facility] 12/07/22 at 1541, Until Discontinu ed, Routine, Dizziness aspirin 81 2022-0 Yes [id number] 81mg Take 1 Univers mg chewable 6-08 tablet by ity of tablet 00:00: mouth in [place] 00 the Medical morning. Branch cetirizine Yes [id number] 10mg Take 1 Univers 10 mg 6-08 tablet by ity of tablet 00:00: mouth in [place] 00 the Medical morning. Branch docusate 0 Yes [id number] 100mg Take 1 U nivers 100 mg 6-08 capsule by ity of capsule 00:00: mouth in [place] 00 the Medical morning. Branch foLIC acid 0 Yes [id number] 1mg Take 1 Univers 1 mg tablet 6-08 tablet by ity of 00:00: mouth in [place] 00 the Medical morning. Branch levothyroxi 0 Yes [id number] 150ug Take 1 Univers ne 150 mcg 6-08 tablet by ity of tablet 00:00: mouth [place] 00 every Medical morning. Branch predniSONE 0 Yes [id number] 20mg Take 1 Univers 20 mg 6-08 tablet by ity of tablet 00:00: mouth in [place] 00 the Medical morning Branch and 1 tablet in the evening. sennosides 0 Yes [id number] 8.6mg Take 1 Univers (SENOKOT) 6-08 tablet by ity o f 8.6 mg 00:00: mouth in [place] tablet 00 the Medical morning Branch and 1 tablet in the evening. sevelamer 2023-0 Yes [id number] 2400mg Take 3 Univers 800 mg 6-08 tablets by ity of tablet 00:00: mouth in [place] the Medical morning Branch and 3 tablets at noon and 3 tablets in the evening. Take with meals. amLODIPine 3-0 Yes [id number] 10mg Take 1 Univers 10 mg 6-08 tablet by ity of tablet 00:00: mouth in [place] the Medical morning. Branch aspirin 81 2022-0 Yes [id number] 81mg Take 1 Univers mg chewable 6-08 tablet by ity of tablet 00:00: mouth in [place] the Medical morning. Branch cetirizine 2022-0 Yes [id number] 10mg Take 1 Univers 10 mg 6-08 tablet by ity of tablet 00:00: mouth in [place] the Medical morning. Branch docusate 2022-0 Yes [id number] 100mg Take 1 U nivers 100 mg 6-08 capsule by ity of capsule 00:00: mouth in [place] the Medical morning. Branch foLIC acid 2022-0 Yes [id number] 1mg Take 1 Univers 1 mg tablet 6-08 tablet by ity of 00:00: mouth in [place] the Medical morning. Branch levothyroxi 2022-0 Yes [id number] 150ug Take 1 Univers ne 150 mcg 6-08 tablet by ity of tablet 00:00: mouth [place] 00 every Medical morning. Branch predniSONE 2022-0 Yes [id number] 20mg Take 1 Univers 20 mg 6-08 tablet by ity of tablet 00:00: mouth in [place] the Medical morning Branch and 1 tablet in the evening. sennosides 2022-0 Yes [id number] 8.6mg Take 1 Univers (SENOKOT) 6-08 tablet by ity o f 8.6 mg 00:00: mouth in [place] tablet 00 the Medical morning Branch and 1 tablet in the evening. sevelamer 3-0 Yes [id number] 2400mg Take 3 Univers 800 mg 6-08 tablets by ity of tablet 00:00: mouth in [place] the Medical morning Branch and 3 tablets at noon and 3 tablets in the evening. Take with meals. amLODIPine 3-0 Yes [id number] 10mg Take 1 Univers 10 mg 6-08 tablet by ity of tablet 00:00: mouth in [place] the Medical morning. Branch aspirin 81 2022-0 Yes [id number] 81mg Take 1 Univers mg chewable 6-08 tablet by ity of tablet 00:00: mouth in [place] 00 the Medical morning. Branch cetirizine 2022-0 Yes [id number] 10mg Take 1 Univers 10 mg 6-08 tablet by ity of tablet 00:00: mouth in [place] 00 the Medical morning. Branch docusate 2022-0 Yes [id number] 100mg Take 1 U nivers 100 mg 6-08 capsule by ity of capsule 00:00: mouth in [place] 00 the Medical morning. Branch foLIC acid 2022-0 Yes [id number] 1mg Take 1 Univers 1 mg tablet 6-08 tablet by ity of 00:00: mouth in [place] 00 the Medical morning. Branch levothyroxi 2022-0 Yes [id number] 150ug Take 1 Univers ne 150 mcg 6-08 tablet by ity of tablet 00:00: mouth [place] 00 every Medical morning. Branch predniSONE 2022-0 Yes [id number] 20mg Take 1 Univers 20 mg 6-08 tablet by ity of tablet 00:00: mouth in [place] the Medical morning Branch and 1 tablet in the evening. sennosides 2022-0 Yes [id number] 8.6mg Take 1 Univers (SENOKOT) 6-08 tablet by ity o f 8.6 mg 00:00: mouth in [facility] 00 the Medical morning Branch and 1 tablet in the evening. sevelamer 2022-0 Yes [id number] 2400mg Take 3 Univers 800 mg 6-08 tablets by ity of tablet 00:00: mouth in [place] the Medical morning Branch and 3 tablets at noon and 3 tablets in the evening. Take with meals. amLODIPine 2022-0 Yes [id number] 10mg Take 1 Univers 10 mg 6-08 tablet by ity of tablet 00:00: mouth in [place] 00 the Medical morning. Branch aspirin 81 2022-0 Yes [id number] 81mg Take 1 Univers mg chewable 6-08 tablet by ity of tablet 00:00: mouth in [place] 00 the Medical morning. Branch cetirizine 2022-0 Yes [id number] 10mg Take 1 Univers 10 mg 6-08 tablet by ity of tablet 00:00: mouth in [place] 00 the Medical morning. Branch docusate 2022-0 Yes [id number] 100mg Take 1 U nivers 100 mg 6-08 capsule by ity of capsule 00:00: mouth in [place] the Medical morning. Branch foLIC acid 2022-0 Yes [id number] 1mg Take 1 Univers 1 mg tablet 6-08 tablet by ity of 00:00: mouth in [place] the Medical morning. Branch levothyroxi 2022-0 Yes [id number] 150ug Take 1 Univers ne 150 mcg 6-08 tablet by ity of tablet 00:00: mouth [place] 00 every Medical morning. Branch predniSONE 2022-0 Yes [id number] 20mg Take 1 Univers 20 mg 6-08 tablet by ity of tablet 00:00: mouth in [place] the Medical morning Branch and 1 tablet in the evening. sennosides 2022-0 Yes [id number] 8.6mg Take 1 Univers (SENOKOT) 6-08 tablet by ity o f 8.6 mg 00:00: mouth in [place] tablet 00 the Medical morning Branch and 1 tablet in the evening. sevelamer 2022-0 Yes [id number] 2400mg Take 3 Univers 800 mg 6-08 tablets by ity of tablet 00:00: mouth in [place] the Medical morning Branch and 3 tablets at noon and 3 tablets in the evening. Take with meals. amLODIPine 2022-0 Yes [id number] 10mg Take 1 Univers 10 mg 6-08 tablet by ity of tablet 00:00: mouth in [place] the Medical morning. Branch aspirin 81 2022-0 Yes [id number] 81mg Take 1 Univers mg chewable 6-08 tablet by ity of tablet 00:00: mouth in [place] the Medical morning. Branch cetirizine 2022-0 Yes [id number] 10mg Take 1 Univers 10 mg 6-08 tablet by ity of tablet 00:00: mouth in [place] the Medical morning. Branch docusate 2022-0 Yes [id number] 100mg Take 1 U nivers 100 mg 6-08 capsule by ity of capsule 00:00: mouth in [place] 00 the Medical morning. Branch foLIC acid 2022-0 Yes [id number] 1mg Take 1 Univers 1 mg tablet 6-08 tablet by ity of 00:00: mouth in [place] 00 the Medical morning. Branch levothyroxi 2022-0 Yes [id number] 150ug Take 1 Univers ne 150 mcg 6-08 tablet by ity of tablet 00:00: mouth [place] 00 every Medical morning. Branch predniSONE 0 Yes [id number] 20mg Take 1 Univers 20 mg 6-08 tablet by ity of tablet 00:00: mouth in [place] 00 the Medical morning Branch and 1 tablet in the evening. sennosides Yes [id number] 8.6mg Take 1 Univers (SENOKOT) 6-08 tablet by ity o f 8.6 mg 00:00: mouth in [place] tablet 00 the Medical morning Branch and 1 tablet in the evening. sevelamer Yes [id number] 2400mg Take 3 Univers 800 mg 6-08 tablets by ity of tablet 00:00: mouth in [place] 00 the Medical morning Branch and 3 tablets at noon and 3 tablets in the evening. Take with meals. amLODIPine Yes [id number] 10mg Take 1 Univers 10 mg 6-08 tablet by ity of tablet 00:00: mouth in [place] 00 the Medical morning. Branch Dose 2021-05 No [...] 2021-05 No Unknown 2-13 00:00: 00 levothyroxi Yes [id number] 224ug Take 2 Univers ne 112 mcg 8-23 tablets by ity of tablet 00:00: mouth [place] 00 every Medical morning. Branch levothyroxi Yes [id number] 224ug Take 2 Univers ne 112 mcg 8-23 tablets by ity of tablet 00:00: mouth [place] 00 every Medical morning. Branch levothyroxi Yes [id number] 224ug Take 2 [facility] 112 mcg 8-23 tablets by ity of tablet 00:00: mouth [place] 00 every Medical morning. Branch levothyroxi Yes [id number] 224ug Take 2 [facility] 112 mcg 8-23 tablets by ity of tablet 00:00: mouth [place] 00 every Medical morning. Branch levothyroxi 2022- No [id number] 224ug Take 2 [facility] 112 mcg 8-23 08-10 tablets by it y of tablet 00:00: 00:00 mouth [place] 00 :00 every Medical morning. Branch levothyroxi 0 2022- No [id number] 224ug Take 2 [facility] 112 mcg 8-23 08-10 tablets by it y of tablet 00:00: 00:00 mouth [place] 00 :00 every Medical morning. [place] INSTILL 1 No DROP INTO 8-10 BOTH [...] 00 TAKE 1 2-0 No 2 TABLET - EVERY 6 00:00: HOURS BY 00 ORAL ROUTE NEEDED FOR 7 DAYS. Dose 2022-0 No Unknown 11-25 00:00: 00 &lt 2022-0 No 25 7- 00:00: 00 TAKE 1 2-0 No 2 TABLET - EVERY 6 00:00: HOURS BY 00 ORAL ROUTE NEEDED FOR 7 DAYS. Dose 2-0 No Unknown 11-25 00:00: 00 &lt 2022-0 No 25 - 00:00: 00 TAKE 1 2-0 No 2 TABLET - EVERY 6 00:00: HOURS BY 00 ORAL ROUTE NEEDED FOR 7 DAYS. Dose 2-0 No Unknown 11-25 00:00: 00 &lt 2022-0 No 25 7 00:00: 00 TAKE 1 2-0 No 2 TABLET - EVERY 6 00:00: HOURS BY 00 ORAL ROUTE NEEDED FOR 7 DAYS. Dose 2-0 No Unknown 11-25 00:00: 00 &lt 2022-0 No 25 11-25 00:00: 00 TAKE 1 2-0 No 2 TABLET - EVERY 6 00:00: HOURS BY 00 ORAL ROUTE NEEDED FOR 7 DAYS. Dose 2-0 No Unknown 11-25 00:00: 00 &lt 2022-0 No 25 11-25 00:00: 00 TAKE 1 2-0 No 2 TABLET - EVERY 6 00:00: HOURS BY 00 ORAL ROUTE NEEDED FOR 7 DAYS. Dose 2-0 No Unknown 11-25 00:00: 00 &lt 2022-0 No 25 11-25 00:00: 00 TAKE 1 2-0 No 2 TABLET - EVERY 6 00:00: [...] EVERY 00 MORNING &lt 2-0 No 800 7- 00:00: 00 Dose 2022-0 No 75 Unknown 11-24 00:00: 00 TAKE 1 2021-0 No 300 CAPSULE BY 7-25 MOUTH EVERY 00:00: DAY 00 &lt 2-0 No 10 7 00:00: 00 INSTILL 1 [...] 11-21 00:00: 00 &lt 2022-0 No 10 7 [...] TAKE 1 2022-0 No 5 TABLET BY -07 MOUTH EVERY 00:00: DAY 00 Dose 2022-0 [...] 2022-0 No 6-21 00:00: 00 Simoneuvia 25 2022-0 No 1mg [...] Simoneuvia 25 2022-0 No 1mg mg tablet 4- [...] atorvastati 2-0 No 1mg n 80 mg 4-07 tablet [...] tablet by ity of tablet 00:00: mouth [place] 00 every Medical morning. Branch levothyroxi 2021-0 [...] 1-07 by mouth ity of 00:00: daily. [place] 00 [facility] Branch lisinopriL 2022-0 Yes 5mg Take 5 mg Un capri 5 mg tablet 1-07 by mouth ity of 00:00: daily. [place] 00 [facility] Branch lisinopriL 2022-0 Yes 5mg Take 5 mg Un capri 5 mg tablet 1-07 by mouth ity of 00:00: daily. [place] 00 [facility] Branch lisinopriL 2022-0 Yes 5mg Take 5 mg Un capri 5 mg tablet 1-07 by mouth ity of 00:00: daily. [place] [facility] Branch lisinopriL 2022-0 Yes 5mg Take 5 mg Un capri 5 mg tablet 1-07 by mouth ity of 00:00: daily. [address] lisinopriL 2021-0 Yes 5mg Take 5 mg Un capri 5 mg tablet 1-07 by mouth ity of 00:00: daily. [address] lisinopriL 2021-0 Yes 5mg Take 5 mg Un capri 5 mg tablet 1-07 by mouth ity of 00:00: daily. [address] lisinopriL 2021-0 Yes 5mg Take 5 mg Un capri 5 mg tablet 1-07 by mouth ity of 00:00: daily. [address] amlodipine 2020-05 No 1mg 10 mg 2-30 tablet 00:00: 00 amlodipine 2020-05 No 1mg 10 mg 2-30 tablet 00:00: 00 amlodipine 2020-05 No 1mg 10 mg 2-30 tablet 00:00: 00 Dose 2020-1 No Unknown 2-30 00:00: 00 Dose 2020-1 No Unknown 2-30 00:00: 00 amlodipine 2020- [...] [facility] 10 MG 17:30: nightly. Medical tablet [address] [place] [address] calcium 2020-0 Yes 3{tbl} Q.[id number] Take [address] [facility] carbonate 8-15 [id number] tablets by [facility] (TUMS) 500 17:30: 3D mouth 3 Medi benjy mg chewable 21 (three) Cente r tablet times daily. furosemide 2020-0 Yes 20mg QD Take [address] (LASIX) 20 8-15 by mouth [facility] tablet 17:30: daily. Medica l [address] [place] [address] lovastatin 2020-0 Yes 10mg QD Take [address] (MEVACOR) 8-15 by mouth [facility] 10 MG 17:30: nightly. Medical tablet [address] [place] calcium 2020-0 Yes 3{tbl} Q.[id number] Take [address] [facility] carbonate 8-15 [id number] tablets by [facility] (TUMS) 500 17:30: 3D mouth 3 Medi benjy mg chewable 21 (three) Cente r tablet times daily. furosemide 2020-0 Yes 20mg QD Take [address] (LASIX) 20 8-15 by mouth [facility] tablet 17:30: daily. Medica l [address] [place] [address] lovastatin 2020-0 Yes 10mg QD Take [address] (MEVACOR) 8-15 by mouth [facility] 10 MG 17:30: nightly. Medical tablet [address] [place] [address] calcium 2020-0 Yes 3{tbl} Q.12033889 Take [address] [facility] [address] carbonate 8-15 [id number] tablets by [facility] (TUMS) 500 17:30: 3D mouth 3 Medi benjy mg chewable 21 (three) Cente r tablet times daily. furosemide 2020-0 Yes 20mg QD Take [address] (LASIX) 20 8-15 by mouth [facility] tablet 17:30: daily. [facility] [address] lovastatin 2020-0 Yes 10mg QD Take [address] (MEVACOR) 8-15 by mouth [facility] 10 MG 17:30: nightly. Medical tablet [address] [place] [address] calcium 2020-0 Yes 3{tbl} Q.[id number] Take [address] [facility] [address] carbonate 8-15 [id number] tablets by [facility] (TUMS) 500 17:30: 3D mouth 3 Medi benjy mg chewable 21 (three) Cente r tablet times daily. furosemide 2020-0 Yes 20mg QD Take [address] (LASIX) 20 8-15 by mouth [facility] tablet 17:30: daily. [facility] [address] lovastatin 2020-0 Yes 10mg QD Take [address] (MEVACOR) 8-15 by mouth [facility] 10 MG 17:30: nightly. Medical tablet [address] [place] [address] calcium 2020-0 Yes 3{tbl} Q.[id number] Take [address] [facility] [address] carbonate 8-15 [id number] tablets by [facility] (TUMS) 500 17:30: 3D mouth 3 Medi benjy mg chewable 21 (three) Cente r tablet times daily. furosemide 2020-0 Yes 20mg QD Take [address] (LASIX) 20 8-15 by mouth [facility] tablet 17:30: daily. [address] lovastatin 2020-0 Yes 10mg QD Take [address] (MEVACOR) 8-15 by mouth [facility] 10 MG 17:30: nightly. Medical tablet [address] [place] [address] calcium 2020-0 Yes 3{tbl} Q.[id number] Take [address] [facility] [address] carbonate 8-15 [id number] tablets by [facility] (TUMS) 500 17:30: 3D mouth 3 Medi benjy mg chewable 21 (three) Cente r tablet times daily. furosemide 2020-0 Yes 20mg QD Take [address] (LASIX) 20 8-15 by mouth [facility] tablet 17:30: daily. [address] lovastatin 2020-0 Yes 10mg QD Take [address] (MEVACOR) 8-15 by mouth [facility] 10 MG 17:30: nightly. Medical tablet [address] [place] [address] calcium 2020-0 Yes 3{tbl} Q.[id number] Take [address] [facility] [address] carbonate 8-15 [id number] tablets by [facility] (PatientsLikeMeS) 500 17:30: 3D mouth 3 Medi benjy mg chewable 21 (three) Cente r tablet times daily. furosemide 2020-0 Yes 20mg QD Take [address] (LASIX) 20 8-15 by mouth [facility] tablet 17:30: daily. [address] lovastatin 2020-0 Yes 10mg QD Take [address] (MEVACOR) 8-15 by mouth [facility] 10 MG 17:30: nightly. Medical tablet [address] [place] [address] calcium 2020-0 Yes 3{tbl} Q.[id number] Take [address] [facility] [address] carbonate 8-15 [id number] tablets by [facility] (TUMS) 500 17:30: 3D mouth 3 Medi benjy mg chewable 21 (three) Cente r tablet times daily. furosemide 2020-0 Yes 20mg QD Take [address] (LASIX) 20 8-15 by mouth [facility] tablet 17:30: daily. [address] lovastatin 2020-0 Yes 10mg QD Take [address] (MEVACOR) 8-15 by mouth [facility] 10 MG 17:30: nightly. Medical tablet [address] [place] [address] calcium 2020-0 Yes 3{tbl} Q.[id number] Take [address] [facility] [address] carbonate 8-15 [id number] tablets by [facility] (TUMS) 500 17:30: 3D mouth 3 Medi benjy mg chewable 21 (three) Cente r tablet times daily. furosemide 2020-0 Yes 20mg QD Take [address] (LASIX) 20 8-15 by mouth [facility] tablet 17:30: daily. [facility] [address] lovastatin 2020-0 Yes 10mg QD Take [address] (MEVACOR) 8-15 by mouth [facility] 10 MG 17:30: nightly. Medical tablet [address] [place] [address] calcium 2020-0 Yes 3{tbl} Q.[id number] Take [address] [facility] [address] carbonate 8-15 [id number] tablets by [facility] (TUMS) 500 17:30: 3D mouth 3 Medi benjy mg chewable 21 (three) Cente r tablet times daily. furosemide 2020-0 Yes 20mg QD Take [address] (LASIX) 20 8-15 by mouth [facility] tablet 17:30: daily. [facility] [address] lovastatin 2020-0 Yes 10mg QD Take [address] (MEVACOR) 8-15 by mouth [facility] 10 MG 17:30: nightly. Medical tablet [address] [place] [address] calcium 2020-0 Yes 3{tbl} Q.[id number] Take [address] [facility] carbonate 8-15 [id number] tablets by [facility] (TUMS) 500 17:30: 3D mouth 3 Medi benjy mg chewable 21 (three) Cente r tablet times daily. furosemide 2020-0 Yes 20mg QD Take [address] (LASIX) 20 8-15 by mouth [facility] tablet 17:30: daily. [address] lovastatin 2020-0 Yes 10mg QD Take [address] (MEVACOR) 8-15 by mouth [facility] 10 MG 17:30: nightly. Medical tablet [address] [place] [address] calcium 2020-0 Yes 3{tbl} Q.[id number] Take [address] [facility] [address] carbonate 8-15 [id number] tablets by [facility] (TUMS) 500 17:30: 3D mouth 3 Medi benjy mg chewable 21 (three) Cente r tablet times daily. furosemide 2020-0 Yes 20mg QD Take [address] (LASIX) 20 8-15 by mouth [facility] tablet 17:30: daily. [facility] [address] lovastatin 2020-0 Yes 10mg QD Take [address] (MEVACOR) 8-15 by mouth [facility] 10 MG 17:30: nightly. Medical tablet [address] [place] [address] calcium 2020-0 Yes 3{tbl} Q.[id number] Take [address] [facility] carbonate 8-15 [id number] tablets by [facility] (TUMS) 500 17:30: 3D mouth 3 Medi benjy mg chewable 21 (three) Cente r tablet times daily. furosemide 2020-0 Yes 20mg QD Take [address] (LASIX) 20 8-15 by mouth [facility] tablet 17:30: daily. [facility] [address] lovastatin 2020-0 Yes 10mg QD Take [address] (MEVACOR) 8-15 by mouth [facility] 10 MG 17:30: nightly. Medical tablet [address] [place] [address] calcium 2020-0 Yes 3{tbl} Q.[id number] Take [address] carbonate 8-15 [id number] tablets by [facility] (PatientsLikeMeS) 500 17:30: 3D mouth 3 Medi benjy mg chewable 21 (three) Cente r tablet times daily. furosemide 2020-0 Yes 20mg QD Take [address] (LASIX) 20 8-15 by mouth [facility] tablet 17:30: daily. [address] lovastatin 2020-0 Yes 10mg QD Take [address] (MEVACOR) 8-15 by mouth [facility] 10 MG 17:30: nightly. Medical tablet [address] [place] [address] calcium 2020-0 Yes 3{tbl} Q.[id number] Take [address] [facility] [address] carbonate 8-15 [id number] tablets by [facility] (TUMS) 500 17:30: 3D mouth 3 Medi benjy mg chewable 21 (three) Cente r tablet times daily. furosemide 2020-0 Yes 20mg QD Take [address] (LASIX) 20 8-15 by mouth [facility] tablet 17:30: daily. [address] lovastatin 2020-0 Yes 10mg QD Take [address] (MEVACOR) 8-15 by mouth [facility] 10 MG 17:30: nightly. Medical tablet [address] [place] [address] calcium 2020-0 Yes 3{tbl} Q.[id number] Take [address] [facility] [address] carbonate 8-15 [id number] tablets by [facility] (PatientsLikeMeS) 500 17:30: 3D mouth 3 Medi benjy mg chewable 21 (three) Cente r tablet times daily. furosemide 2020-0 Yes 20mg QD Take [address] (LASIX) 20 8-15 by mouth [facility] tablet 17:30: daily. [facility] [address] lovastatin 2020-0 Yes 10mg QD Take [address] (MEVACOR) 8-15 by mouth [facility] 10 MG 17:30: nightly. Medical tablet [address] [place] [address] calcium 2020-0 Yes 3{tbl} Q.[id number] Take [address] [facility] carbonate 8-15 [id number] tablets by [facility] (PatientsLikeMeS) 500 17:30: 3D mouth 3 Medi benjy mg chewable 21 (three) Cente r tablet times daily. furosemide 2020-0 Yes 20mg QD Take [address] (LASIX) 20 8-15 by mouth [facility] tablet 17:30: daily. [facility] [address] lovastatin 2020-0 Yes 10mg QD Take [address] (MEVACOR) 8-15 by mouth [facility] 10 MG 17:30: nightly. Medical tablet [address] [place] [address] calcium 2020-0 Yes 3{tbl} Q.[id number] Take [address] [facility] [address] carbonate 8-15 [id number] tablets by [facility] (PatientsLikeMeS) 500 17:30: 3D mouth 3 Medi benjy mg chewable 21 (three) Cente r tablet times daily. furosemide 2020-0 Yes 20mg QD Take [address] (LASIX) 20 8-15 by mouth [facility] tablet 17:30: daily. [facility] [address] lovastatin 2020-0 Yes 10mg QD Take [address] (MEVACOR) 8-15 by mouth [facility] 10 MG 17:30: nightly. Medical tablet [address] [place] [address] calcium 2020-0 Yes 3{tbl} Q.[id number] Take [address] [facility] [address] carbonate 8-15 [id number] tablets by [facility] (PatientsLikeMeS) 500 17:30: 3D mouth 3 Medi benjy mg chewable 21 (three) Cente r tablet times daily. furosemide 2020-0 Yes 20mg QD Take [address] (LASIX) 20 8-15 by mouth [facility] tablet 17:30: daily. [facility] [address] lovastatin 2020-0 Yes 10mg QD Take [address] (MEVACOR) 8-15 by mouth [facility] 10 MG 17:30: nightly. Medical tablet [address] [place] calcium 2020-0 Yes 3{tbl} Q.[id number] Take [address] [facility] [address] carbonate 8-15 [id number] tablets by [facility] (TUMS) 500 17:30: 3D mouth 3 Medi benjy mg chewable 21 (three) Cente r tablet times daily. furosemide 2020-0 Yes 20mg QD Take [address] (LASIX) 20 8-15 by mouth [facility] MG tablet 17:30: daily. Medica l [address] [place] [address] lovastatin 2020-0 Yes 10mg QD Take [address] (MEVACOR) 8-15 by mouth [facility] 10 MG 17:30: nightly. Medical tablet [address] [place] [address] calcium 2020-0 Yes 3{tbl} Q.[id number] Take [address] [facility] [address] carbonate 8-15 [id number] tablets by [facility] (TUMS) 500 17:30: 3D mouth 3 Medi benjy mg chewable 21 (three) Cente r tablet times daily. furosemide 2020-0 Yes 20mg QD Take [address] (LASIX) 20 8-15 by mouth [facility] tablet 17:30: daily. Medica [address] lovastatin 2020-0 Yes 10mg QD Take [address] (MEVACOR) 8-15 by mouth [facility] 10 MG 17:30: nightly. Medical tablet [address] [place] calcium 2020-0 Yes 3{tbl} Q.[id number] Take [address] [facility] [address] carbonate 8-15 [id number] tablets by [facility] (TUMS) 500 17:30: 3D mouth 3 Medi benjy mg chewable 21 (three) Cente r tablet times daily. furosemide 2020-0 Yes 20mg QD Take [address] (LASIX) 20 8-15 by mouth [facility] tablet 17:30: daily. Medica [address] lovastatin 2020-0 Yes 10mg QD Take [address] (MEVACOR) 8-15 by mouth [facility] 10 MG 17:30: nightly. Medical tablet 21 [place] calcium 2020-0 Yes 3{tbl} Q.[id number] Take [address] [facility] [address] carbonate 8-15 [id number] tablets by [facility] (TUMS) 500 17:30: 3D mouth 3 Medi benjy mg chewable 21 (three) Cente r tablet times daily. furosemide 2020-0 Yes 20mg QD Take [address] (LASIX) 20 8-15 by mouth [facility] tablet 17:30: daily. [address] lovastatin 2020-0 Yes 10mg QD Take [address] (MEVACOR) 8-15 by mouth [facility] 10 MG 17:30: nightly. Medical tablet [address] [place] [address] calcium 2020-0 Yes 3{tbl} Q.[id number] Take [address] [facility] [address] carbonate 8-15 [id number] tablets by [facility] (TUMS) 500 17:30: 3D mouth 3 Medi benjy mg chewable 21 (three) Cente r tablet times daily. furosemide 2020-0 Yes 20mg QD Take [address] (LASIX) 20 8-15 by mouth [facility] tablet 17:30: daily. [address] lovastatin 2020-0 Yes 10mg QD Take [address] (MEVACOR) 8-15 by mouth [facility] 10 MG 17:30: nightly. Medical tablet [address] [place] [address] calcium 2020-0 Yes 3{tbl} Q.[id number] Take [address] [facility] [address] carbonate 8-15 [id number] tablets by [facility] (TUMS) 500 17:30: 3D mouth 3 Medi benjy mg chewable 21 (three) Cente r tablet times daily. furosemide 2020-0 Yes 20mg QD Take [address] (LASIX) 20 8-15 by mouth [facility] tablet 17:30: daily. [address] lovastatin 2020-0 Yes 10mg QD Take [address] (MEVACOR) 8-15 by mouth [facility] 10 MG 17:30: nightly. Medical tablet [address] [place] [address] calcium 2020-0 Yes 3{tbl} Q.[id number] Take [address] [facility] [address] carbonate 8-15 [id number] tablets by [facility] (TUMS) 500 17:30: 3D mouth 3 Medi benjy mg chewable 21 (three) Cente r tablet times daily. furosemide 2020-0 Yes 20mg QD Take [address] (LASIX) 20 8-15 by mouth [facility] tablet 17:30: daily. [address] lovastatin 2020-0 Yes 10mg QD Take [address] (MEVACOR) 8-15 by mouth [facility] 10 MG 17:30: nightly. Medical tablet [address] [place] calcium 2020-0 Yes 3{tbl} Q.[id number] Take [address] [facility] [address] carbonate 8-15 [id number] tablets by [facility] (TUMS) 500 17:30: 3D mouth 3 Medi benjy mg chewable 21 (three) Cente r tablet times daily. furosemide 2020-0 Yes 20mg QD Take [address] (LASIX) 20 8-15 by mouth [facility] tablet 17:30: daily. Medica l [address] [place] [address] lovastatin 2020-0 Yes 10mg QD Take [address] (MEVACOR) 8-15 by mouth [facility] 10 MG 17:30: nightly. Medical tablet [address] [place] [address] calcium 2020-0 Yes 3{tbl} Q.[id number] Take [address] [facility] carbonate 8-15 [id number] tablets by [facility] (TUMS) 500 17:30: 3D mouth 3 Medi benjy mg chewable 21 (three) Cente r tablet times daily. lovastatin 2020-0 Yes 10mg QD Take [address] (MEVACOR) 8-15 by mouth [facility] 10 MG 17:30: nightly. Medical tablet [address] [place] [address] calcium 2020-0 Yes 3{tbl} Q.[id number] Take [address] [facility] [address] carbonate 8-15 [id number] tablets by [facility] (TUMS) 500 17:30: 3D mouth 3 Medi benjy mg chewable 21 (three) Cente r tablet times daily. furosemide 2020-0 Yes 20mg QD Take [address] (LASIX) 20 8-15 by mouth [facility] tablet 17:30: daily. [facility] [address] furosemide 2020-0 Yes 20mg QD Take [address] (LASIX) 20 8-15 by mouth [facility] tablet 17:30: daily. Medica [address] lovastatin 2020-0 Yes 10mg QD Take [address] (MEVACOR) 8-15 by mouth [facility] 10 MG 17:30: nightly. Medical tablet [address] [place] calcium 2020-0 Yes 3{tbl} Q.[id number] Take [address] [facility] [address] carbonate 8-15 [id number] tablets by [facility] (TUMS) 500 17:30: 3D mouth 3 Medi benjy mg chewable 21 (three) Cente r tablet times daily. furosemide 2020-0 Yes 20mg QD Take [address] (LASIX) 20 8-15 by mouth [facility] tablet 17:30: daily. Medica l [address] [place] lovastatin 2020-0 Yes 10mg QD Take [address] (MEVACOR) 8-15 by mouth [facility] 10 MG 17:30: nightly. Medical tablet 21 [place] calcium 2020-0 Yes 3{tbl} Q.[id number] Take [address] [facility] [address] carbonate 8-15 [id number] tablets by [facility] (TUMS) 500 17:30: 3D mouth 3 Medi benjy mg chewable 21 (three) Cente r tablet times daily. furosemide 2020-0 Yes 20mg QD Take [address] (LASIX) 20 8-15 by mouth [facility] tablet 17:30: daily. Medica l [address] [place] lovastatin 2020-0 Yes 10mg QD Take [address] (MEVACOR) 8-15 by mouth [facility] 10 MG 17:30: nightly. Medical tablet 21 [place] calcium 2020-0 Yes 3{tbl} Q.[id number] Take [address] [facility] [address] carbonate 8-15 [id number] tablets by [facility] (TUMS) 500 17:30: 3D mouth 3 Medi benjy mg chewable 21 (three) Cente r tablet times daily. furosemide 2020-0 Yes 20mg QD Take [address] (LASIX) 20 8-15 by mouth [facility] tablet 17:30: daily. [facility] [address] cyclobenzap 2020-0 Yes 1{tbl} QD Take [address] [facility] 8-04 tablet by [facility] (FLEXERIL) 00:00: mouth Medica l 10 MG 00 daily. [place] tablet cyclobenzap 2020-0 Yes 1{tbl} QD Take [address] [facility] 8-04 tablet by [facility] (FLEXERIL) 00:00: mouth Medica l 10 MG 00 daily. [place] tablet cyclobenzap 2020-0 Yes 1{tbl} QD Take [address] [facility] 8-04 tablet by [facility] (FLEXERIL) 00:00: mouth Medica l 10 MG 00 daily. [place] tablet cyclobenzap 2020-0 Yes 1{tbl} QD Take [...] 6-01 MOUTH 2 [facility] 00:[facility]: TABLETS Medical WITH MEALS Center 3 TIMES A DAY [...] MG 00:00: mouth Medical tablet 00 daily. [place] atorvastati 2019-0 Yes 1{tbl} QD Take [address] [facility] (LIPITOR) 5-15 tablet by [facility] 10 MG 00:00: mouth Medical tablet 00 daily. [place] atorvastati 2019-0 Yes 1{tbl} QD Take [address] [facility] (LIPITOR) 5-15 tablet by [facility] 10 MG 00:00: mouth Medical tablet 00 daily. [place] atorvastati Yes 1{tbl} QD Take [address] [facility] (LIPITOR) 5-15 tablet by [facility] 10 MG 00:00: mouth Medical tablet 00 daily. [place] atorvastati Yes 1{tbl} QD Take [address] [facility] (LIPITOR) 5-15 tablet by [facility] 10 MG 00:00: mouth Medical tablet 00 daily. [place] atorvastati 0 Yes 1{tbl} QD Take [address] [facility] (LIPITOR) 5-15 tablet by [facility] 10 MG 00:00: mouth Medical tablet 00 daily. [place] atorvastati 0 Yes 1{tbl} QD Take [address] [facility] (LIPITOR) 5-15 tablet by [facility] 10 MG 00:00: mouth Medical tablet 00 daily. [place] atorvastati Yes 1{tbl} QD Take [address] [facility] (LIPITOR) 5-15 tablet by [facility] 10 MG 00:00: mouth Medical tablet 00 daily. [place] atorvastati 0 Yes 1{tbl} QD Take [address] [facility] (LIPITOR) 5-15 tablet by [facility] 10 MG 00:00: mouth Medical tablet 00 daily. [place] atorvastati 0 Yes 1{tbl} QD Take [address] [facility] (LIPITOR) 5-15 tablet by [facility] 10 MG 00:00: mouth Medical tablet 00 daily. [place] atorvastati Yes 1{tbl} QD Take [address] [facility] (LIPITOR) 5-15 tablet by [facility] 10 MG 00:00: mouth Medical tablet 00 daily. [place] atorvastati 0 Yes 1{tbl} QD Take [address] [facility] (LIPITOR) 5-15 tablet by [facility] 10 MG 00:00: mouth Medical tablet 00 daily. [place] atorvastati 2019-0 Yes 1{tbl} QD Take [address] [facility] (LIPITOR) 5-15 tablet by [facility] 10 MG 00:00: mouth Medical tablet 00 daily. [place] atorvastati 2019-0 Yes 1{tbl} QD Take [address] [facility] (LIPITOR) 5-15 tablet by [facility] 10 MG 00:00: mouth Medical tablet 00 daily. [place] atorvastati Yes 1{tbl} QD Take [address] [facility] (LIPITOR) 5-15 tablet by [facility] 10 MG 00:00: mouth Medical tablet 00 daily. [place] atorvastati Yes 1{tbl} QD Take [address] [facility] (LIPITOR) 5-15 tablet by [facility] 10 MG 00:00: mouth Medical tablet 00 daily. [place] atorvastati Yes 1{tbl} QD Take [address] [facility] (LIPITOR) 5-15 tablet by [facility] 10 MG 00:00: mouth Medical tablet 00 daily. [place] atorvastati Yes 1{tbl} QD Take [address] [facility] (LIPITOR) 5-15 tablet by [facility] 10 MG 00:00: mouth Medical tablet 00 daily. [place] atorvastati Yes 1{tbl} QD Take [address] [facility] (LIPITOR) 5-15 tablet by [facility] 10 MG 00:00: mouth Medical tablet 00 daily. [place] atorvastati 0 Yes 1{tbl} QD Take [address] [facility] (LIPITOR) 5-15 tablet by [facility] 10 MG 00:00: mouth Medical tablet 00 daily. [place] atorvastati 0 Yes 1{tbl} QD Take [address] [facility] (LIPITOR) 5-15 tablet by [facility] 10 MG 00:00: mouth Medical tablet 00 daily. [place] atorvastati 0 Yes 1{tbl} QD Take [address] [facility] (LIPITOR) 5-15 tablet by [facility] 10 MG 00:00: mouth Medical tablet 00 daily. [place] atorvastati Yes 1{tbl} QD Take [address] [facility] (LIPITOR) 5-15 tablet by [facility] 10 MG 00:00: mouth Medical tablet 00 daily. [place] atorvastati 2019-0 Yes 1{tbl} QD Take [address] [facility] (LIPITOR) 5-15 tablet by [facility] 10 MG 00:00: mouth Medical tablet 00 daily. [place] atorvastati 2019-0 Yes 1{tbl} QD Take [address] [facility] (LIPITOR) 5-15 tablet by [facility] 10 MG 00:00: mouth Medical tablet 00 daily. [place] atorvastati 2019-0 Yes 1{tbl} QD Take [address] [facility] (LIPITOR) 5-15 tablet by [facility] 10 MG 00:00: mouth Medical tablet 00 daily. [place] atorvastati 2019-0 Yes 1{tbl} QD Take [address] [facility] (LIPITOR) 5-15 tablet by [facility] 10 MG 00:00: mouth Medical tablet 00 daily. [place] atorvastati 2019-0 Yes 1{tbl} QD Take [address] [facility] (LIPITOR) 5-15 tablet by [facility] 10 MG 00:00: mouth Medical tablet 00 daily. [place] atorvastati 2019-0 Yes 1{tbl} QD Take [address] [facility] (LIPITOR) 5-15 tablet by [facility] 10 MG 00:00: mouth Medical tablet 00 daily. [place] atorvastati 2019-0 Yes 1{tbl} QD Take [address] [facility] (LIPITOR) 5-15 tablet by [facility] 10 MG 00:00: mouth Medical tablet 00 daily. [place] atorvastati 2019-0 Yes 1{tbl} QD Take [address] [facility] (LIPITOR) 5-15 tablet by [facility] 10 MG 00:00: mouth Medical tablet 00 daily. [place] atorvastati 2019-0 Yes 1{tbl} QD Take [address] [facility] (LIPITOR) 5-15 tablet by [facility] 10 MG 00:00: mouth Medical tablet 00 daily. [place] aspirin 81 2019-0 No 1mg mg 3-04 [...] 10 MG 00:00: daily . Medical tablet [address] [place] [address] amLODIPine 2020-0 Yes 10mg QD Take [address] (NORVASC) 1-16 [facility] 10 MG 00:00: daily . Medical tablet [address] [place] [address] amLODIPine 2020-0 Yes 10mg QD Take [address] (NORVASC) 1-16 [facility] 10 MG 00:00: daily . Medical tablet 00 [place] amLODIPine 2020-0 Yes 10mg QD Take [address] (NORVASC) 1-16 [facility] 10 MG 00:00: daily . Medical tablet 00 [place] amLODIPine 2020-0 Yes 10mg QD Take [address] (NORVASC) 1-16 by [facility] 10 MG 00:00: daily . Medical tablet 00 [facility] [facility] amLODIPine 2020-0 Yes 10mg QD Take [address] [facility] 00:[facility]: daily . [facility] tablet 00 [place] [facility] amLODIPine 2020-0 Yes 10mg QD Take [address] ([facility] 1-[facility] 10 MG 00:00: daily . [facility] tablet 00 [place] amLODIPine 2020-0 Yes 10mg QD Take [address] ([facility] 1-16 [facility] 10 MG 00:00: daily . [facility] tablet 00 [place] amLODIPine 2020-0 Yes 10mg QD Take [address] ([facility]) 1-16 [facility] 10 MG 00:00: daily . Medical tablet 00 [place] amLODIPine 2020-0 Yes 10mg QD Take [address] ([facility]) 1-16 [facility] 10 MG 00:00: daily . Medical tablet 00 [place] amLODIPine 2020-0 Yes 10mg QD Take [address] ([facility]) 1-16 [facility] 10 MG 00:00: daily . Medical tablet 00 [place] amLODIPine 2020-0 Yes 10mg QD Take [address] ([facility]) 1-16 [facility] 10 MG 00:00: daily . Medical tablet 00 [place] amLODIPine 2020-0 Yes 10mg QD Take [address] ([facility]) 1-16 [facility] 10 MG 00:00: daily . Medical tablet 00 [place] amLODIPine 2020-0 Yes 10mg QD Take [address] ([facility]) 1-16 [facility] 10 MG 00:00: daily . Medical tablet 00 [place] amLODIPine 2020-0 Yes 10mg QD Take [address] ([facility]) 1-16 [facility] 10 MG 00:00: daily . Medical tablet 00 [place] amLODIPine 2020-0 Yes 10mg QD Take [address] ([facility]) 1-16 [facility] 10 MG 00:00: daily . [facility] tablet 00 [place] amLODIPine 2020-0 Yes 10mg QD Take [address] ([facility]) 1-16 [facility] 10 MG 00:00: daily . [facility] tablet 00 [place] amLODIPine 2020-0 Yes 10mg QD Take [address] ([facility]) 1-16 [facility] 10 MG 00:00: daily . Medical tablet 00 [place] amLODIPine 2020-0 Yes 10mg QD Take [address] ([facility]) 1-16 [facility] 10 MG 00:00: daily . Medical tablet 00 [place] amLODIPine 2020-0 Yes 10mg QD Take [address] ([facility]) 1-16 [facility] 10 MG 00:00: daily . Medical tablet 00 [place] amLODIPine 2020-0 Yes 10mg QD Take [address] ([facility]) 1-16 [facility] 10 MG 00:00: daily . Medical tablet 00 [place] amLODIPine 2020-0 Yes 10mg QD Take [address] ([facility]) 1-16 [facility] 10 MG 00:00: daily . Medical tablet 00 [place] amLODIPine 2020-0 Yes 10mg QD Take [address] ([facility]) 1-16 [facility] 10 MG 00:00: daily . Medical tablet 00 [place] amLODIPine 2020-0 Yes 10mg QD Take [address] ([facility]) 1-16 [facility] 10 MG 00:00: daily . Medical tablet 00 [place] amLODIPine 2020-0 Yes 10mg QD Take [address] ([facility]) 1-16 [facility] 10 MG 00:00: daily . Medical tablet 00 [place] amLODIPine 2020-0 Yes 10mg QD Take [address] ([facility]) 1-16 [facility] 10 MG 00:00: daily . Medical tablet 00 [place] amLODIPine 2020-0 Yes 10mg QD Take [address] ([facility]) 1-16 [facility] 10 MG 00:00: daily . Medical tablet 00 [place] amLODIPine 2020-0 Yes 10mg QD Take [address] ([facility]) 1-16 [facility] 10 MG 00:00: daily . Medical tablet [address] [place] [address] amLODIPine 2020-0 Yes 10mg QD Take [address] ([facility]) 1-16 [facility] 10 MG 00:00: daily . Medical tablet [address] [place] [address] amLODIPine 2020-0 Yes 10mg QD Take [address] ([facility]) 1-16 [facility] 10 MG 00:00: daily . Medical tablet [address] [place] [address] amLODIPine 2020-0 Yes 10mg QD Take [address] ([facility]) 1-16 by [facility] 10 MG 00:00: daily . Medical tablet [address] [place] [address] amLODIPine 2020-0 Yes 10mg QD Take [address] ([facility]) 1-16 by [facility] 10 MG 00:00: daily . Medical tablet [address] [place] [address] aspirin 81 2020-0 No 1mg mg 1-10 [...] tablet 00:00: 00 sevelamer 2020-0 Yes 800mg Q.[id number] [address] [facility] ([facility]) 1-10 [id number] (three) [facility] 800 mg 00:00: 3D times Medical tablet 00 daily . [place] UNITHROID 2020-0 Yes 125ug QD Take [address] [facility] 125 mcg 1-10 mcg by [facility] tablet 00:00: mouth [facility] 00 nightly . [place] sevelamer 2020-0 Yes 800mg Q.[id number] [address] [facility] ([place]) 1-10 [id number] (three) [facility] 800 mg 00:00: 3D times Medical tablet 00 daily . [place] UNITHROID 2020-0 Yes 125ug QD Take [address] [facility] 125 mcg 1-10 mcg by [facility] tablet 00:00: mouth [facility] 00 nightly . [place] sevelamer 2020-0 Yes 800mg Q.[id number] [address] [facility] ([place]) 1-10 [id number] (three) [facility] 800 mg 00:00: 3D times Medical tablet 00 daily . [place] UNITHROID 2020-0 Yes 125ug QD Take [address] [facility] 125 mcg 1-10 mcg by [facility] tablet 00:00: mouth [facility] 00 nightly . [place] sevelamer 2020-0 Yes 800mg Q.[id number] [address] [facility] ([place]) 1-10 [id number] (three) [facility] 800 mg 00:00: 3D times Medical tablet 00 daily . [place] UNITHROID 2020-0 Yes 125ug QD Take [address] [facility] [address] 125 mcg 1-10 mcg by [facility] tablet 00:00: mouth [facility] 00 nightly . [place] sevelamer 2020-0 Yes 800mg Q.[id number] [address] [facility] ([place]) 1-10 [id number] (three) [facility] 800 mg 00:00: 3D times Medical tablet 00 daily . [place] UNITHROID 2020-0 Yes 125ug QD Take [address] [facility] [address] 125 mcg 1-10 mcg by [facility] tablet 00:00: mouth [facility] 00 nightly . [place] sevelamer 2020-0 Yes 800mg Q.[id number] [address] [facility] ([place]) 1-10 [id number] (three) [facility] 800 mg 00:00: 3D times Medical tablet 00 daily . [place] UNITHROID 2020-0 Yes 125ug QD Take [address] [facility] [address] 125 mcg 1-10 mcg by [facility] tablet 00:00: mouth [facility] 00 nightly . [place] sevelamer 2020-0 Yes 800mg Q.[id number] [address] [facility] ([place]) 1-10 [id number] (three) [facility] 800 mg 00:00: 3D times Medical tablet 00 daily . [place] UNITHROID 2020-0 Yes 125ug QD Take [address] [facility] [address] 125 mcg 1-10 mcg by [facility] tablet 00:00: mouth [facility] 00 nightly . [place] sevelamer 2020-0 Yes 800mg Q.[id number] [address] [facility] ([place]) 1-10 [id number] (three) [facility] 800 mg 00:00: 3D times Medical tablet 00 daily . [place] UNITHROID 2020-0 Yes 125ug QD Take [address] [facility] [address] 125 mcg 1-10 mcg by [facility] tablet 00:00: mouth [facility] 00 nightly . [place] sevelamer 2020-0 Yes 800mg Q.[id number] [address] [facility] ([place]) 1-10 [id number] (three) [facility] 800 mg 00:00: 3D times Medical tablet 00 daily . [place] UNITHROID 2020-0 Yes 125ug QD Take [address] [facility] [address] 125 mcg 1-10 mcg by [facility] tablet 00:00: mouth [facility] 00 nightly . [place] sevelamer 2020-0 Yes 800mg Q.[id number] [address] [facility] ([place]) 1-10 [id number] (three) [facility] 800 mg 00:00: 3D times Medical tablet 00 daily . [place] UNITHROID 2020-0 Yes 125ug QD Take [address] [facility] [address] 125 mcg 1-10 mcg by [facility] tablet 00:00: mouth [facility] 00 nightly . [place] sevelamer 2020-0 Yes 800mg Q.[id number] [address] [facility] ([place]) 1-10 [id number] (three) [facility] 800 mg 00:00: 3D times Medical tablet 00 daily . [place] UNITHROID 2020-0 Yes 125ug QD Take [address] [facility] 125 mcg 1-10 mcg by [facility] tablet 00:00: mouth [facility] 00 nightly . [place] sevelamer 2020-0 Yes 800mg Q.[id number] [address] [facility] ([place]) 1-10 [id number] (three) [facility] 800 mg 00:00: 3D times Medical tablet 00 daily . [place] UNITHROID 2020-0 Yes 125ug QD Take [address] [facility] [address] 125 mcg 1-10 mcg by [facility] tablet 00:00: mouth [facility] 00 nightly . [place] sevelamer 2020-0 Yes 800mg Q.[id number] [address] [facility] ([place]) 1-10 [id number] (three) [facility] 800 mg 00:00: 3D times Medical tablet 00 daily . [place] UNITHROID 2020-0 Yes 125ug QD Take [address] [facility] [address] 125 mcg 1-10 mcg by [facility] tablet 00:00: mouth [facility] 00 nightly . [place] sevelamer 2020-0 Yes 800mg Q.[id number] [address] [facility] ([place]) 1-10 [id number] (three) [facility] 800 mg 00:00: 3D times Medical tablet 00 daily . [place] UNITHROID 2020-0 Yes 125ug QD Take [address] [facility] 125 mcg 1-10 mcg by [facility] tablet 00:00: mouth [facility] 00 nightly . [place] sevelamer 2020-0 Yes 800mg Q.[id number] [address] [facility] ([place]) 1-10 [id number] (three) [facility] 800 mg 00:00: 3D times Medical tablet 00 daily . [place] UNITHROID 2020-0 Yes 125ug QD Take [address] [facility] [address] 125 mcg 1-10 mcg by [facility] tablet 00:00: mouth [facility] 00 nightly . [place] sevelamer 2020-0 Yes 800mg Q.[id number] [address] [facility] ([place]) 1-10 [id number] (three) [facility] 800 mg 00:00: 3D times Medical tablet 00 daily . [place] UNITHROID 2020-0 Yes 125ug QD Take [address] [facility] [address] 125 mcg 1-10 mcg by [facility] tablet 00:00: mouth [facility] 00 nightly . [place] sevelamer 2020-0 Yes 800mg Q.[id number] [address] [facility] ([place]) 1-10 [id number] (three) [facility] 800 mg 00:00: 3D times Medical tablet 00 daily . [place] UNITHROID 2020-0 Yes 125ug QD Take [address] [facility] 125 mcg 1-10 mcg by [facility] tablet 00:00: mouth [facility] 00 nightly . [place] sevelamer 2020-0 Yes 800mg Q.[id number] [address] [facility] ([place]) 1-10 [id number] (three) [facility] 800 mg 00:00: 3D times Medical tablet 00 daily . [place] UNITHROID 2020-0 Yes 125ug QD Take [address] [facility] [address] 125 mcg 1-10 mcg by [facility] tablet 00:00: mouth [facility] 00 nightly . [place] sevelamer 2020-0 Yes 800mg Q.[id number] [address] [facility] ([place]) 1-10 [id number] (three) [facility] 800 mg 00:00: 3D times Medical tablet 00 daily . [place] UNITHROID 2020-0 Yes 125ug QD Take [address] [facility] [address] 125 mcg 1-10 mcg by [facility] tablet 00:00: mouth [facility] 00 nightly . [place] sevelamer 2020-0 Yes 800mg Q.[id number] [address] [facility] ([place]) 1-10 [id number] (three) [facility] 800 mg 00:00: 3D times Medical tablet 00 daily . [place] UNITHROID 2020-0 Yes 125ug QD Take [address] [facility] [address] 125 mcg 1-10 mcg by [facility] 00:00: mouth [facility] 00 nightly . [place] sevelamer 2020-0 Yes 800mg Q.[id number] [address] [facility] ([place]) 1-10 [id number] (three) [facility] 800 mg 00:00: 3D times Medical tablet 00 daily . [place] UNITHROID 2020-0 Yes 125ug QD Take [address] [facility] [address] 125 mcg 1-10 mcg by [facility] tablet 00:00: mouth Medical 00 nightly . [place] sevelamer 2020-0 Yes 800mg Q.[id number] [address] [facility] ([place]) 1-10 [id number] (three) [facility] 800 mg 00:00: 3D times Medical tablet 00 daily . [place] UNITHROID 2020-0 Yes 125ug QD Take [address] [facility] [address] 125 mcg 1-10 mcg by [facility] 00:00: mouth [facility] 00 nightly . [place] sevelamer 2020-0 Yes 800mg Q.[id number] [address] [facility] ([place]) 1-10 [id number] (three) [facility] 800 mg 00:00: 3D times Medical tablet 00 daily . [place] UNITHROID 2020-0 Yes 125ug QD Take [address] [facility] [address] 125 mcg 1-10 mcg by [facility] 00:00: mouth [facility] 00 nightly . [place] sevelamer 2020-0 Yes 800mg Q.[id number] [address] [facility] ([place]) 1-10 [id number] (three) [facility] 800 mg 00:00: 3D times Medical tablet 00 daily . [place] UNITHROID 2020-0 Yes 125ug QD Take [address] [facility] 125 mcg 1-10 mcg by [facility] 00:00: mouth [facility] 00 nightly . [place] sevelamer 2020-0 Yes 800mg Q.[id number] [address] [facility] ([place]) 1-10 [id number] (three) [facility] 800 mg 00:00: 3D times Medical tablet 00 daily . [place] UNITHROID 2020-0 Yes 125ug QD Take [address] [facility] 125 mcg 1-10 mcg by [facility] 00:00: mouth [facility] 00 nightly . [place] sevelamer 2020-0 Yes 800mg Q.[id number] [address] [facility] ([place]) 1-10 [id number] (three) [facility] 800 mg 00:00: 3D times Medical tablet 00 daily . [place] UNITHROID 2020-0 Yes 125ug QD Take [address] [facility] 125 mcg 1-10 mcg by [facility] tablet 00:00: mouth [facility] 00 nightly . [place] sevelamer 2020-0 Yes 800mg Q.[id number] [address] [facility] ([place]) 1-10 [id number] (three) [facility] 800 mg 00:00: 3D times Medical tablet 00 daily . [place] sevelamer 2020-0 Yes 800mg Q.[id number] [address] [facility] ([place]) 1-10 [id number] (three) [facility] 800 mg 00:00: 3D times Medical tablet 00 daily . [place] UNITHROID 2020-0 Yes 125ug QD Take [address] [facility] 125 mcg 1-10 mcg by [facility] tablet 00:00: mouth Medical 00 nightly . [place] UNITHROID 2020-0 Yes 125ug QD Take [address] [facility] 125 mcg 1-10 mcg by [facility] 00:00: mouth Medical 00 nightly . [place] sevelamer 2020-0 Yes 800mg Q.[id number] [address] [facility] ([place]) 1-10 [id number] (three) [facility] 800 mg 00:00: 3D times Medical tablet 00 daily . [place] UNITHROID 2020-0 Yes 125ug QD Take [address] [facility] 125 mcg 1-10 mcg by [facility] 00:00: mouth Medical 00 nightly . [place] sevelamer 2020-0 Yes 800mg Q.[id number] [address] [facility] ([place]) 1-10 [id number] (three) [facility] 800 mg 00:00: 3D times Medical tablet 00 daily . [place] UNITHROID 2020-0 Yes 125ug QD Take [address] [facility] 125 mcg 1-10 mcg by [facility] tablet 00:00: mouth Medical 00 nightly . [place] sevelamer 2020-0 Yes 800mg Q.[id number] [address] [facility] ([place]) 1-10 [id number] (three) [facility] 800 mg 00:00: 3D times Medical tablet 00 daily . [place] UNITHROID 2020-0 Yes 125ug QD Take [address] [facility] 125 mcg 1-10 mcg by [facility] tablet 00:00: mouth Medical 00 nightly . [place] sevelamer 2020-0 Yes 800mg Q.[id number] [address] [facility] ([place]) 1-10 [id number] (three) [facility] 800 mg 00:00: 3D times Medical tablet 00 daily . [place] UNITHROID 2020-0 Yes 125ug QD Take [address] [facility] 125 mcg 1-10 mcg by [facility] 00:00: mouth [facility] 00 nightly . [place] amlodipine 2020-0 No 1mg 10 mg 1-08 [...] 1-12 capsule 00:00: 00 gabapentin 2018- Yes [id number] 100mg Take 1 [facility] 100 mg 0-22 capsule by [facility] capsule 00:00: mouth 3 (three) Medical times Branch daily. gabapentin 2018-05 Yes [id number] 100mg Take 1 [facility] 100 mg 0-22 capsule by [facility] of capsule 00:00: mouth 3 (three) Medical times Branch daily. gabapentin 2018-05 Yes [id number] 100mg Take 1 [facility] 100 mg 0-22 capsule by [facility] of capsule 00:00: mouth 3 (three) Medical times Branch daily. gabapentin 2018- Yes [id number] 100mg Take 1 [facility] 100 mg 0-22 capsule by [facility] of capsule 00:00: mouth 3 (three) Medical times Branch daily. gabapentin 2018-05 Yes [id number] 100mg Take 1 [facility] 100 mg 0-22 capsule by [facility] of capsule 00:00: mouth 3 (three) Medical times Branch daily. gabapentin 2018-05 Yes [id number] 100mg Take 1 [facility] 100 mg 0-22 capsule by [facility] of capsule 00:00: mouth 3 (three) Medical times Branch daily. gabapentin 2018- Yes [id number] 100mg Take 1 [facility] 100 mg 0-22 capsule by [facility] of capsule 00:00: mouth 3 (three) Medical times Branch daily. gabapentin 2018-05 Yes [id number] 100mg Take 1 [facility] 100 mg 0-22 [...] 0-01 tablet 00:00: 00 amLODIPine 2018-0 Yes [id number] 10mg Take 1 [facility] 10 mg 9-16 tablet by [facility] of tablet 00:00: mouth [place] 00 daily. [facility] aspirin 81 0 Yes [id number] 81mg Take 1 [facility] mg chewable 9-16 tablet by [facility] of tablet 00:00: mouth [place] 00 daily. [facility] atorvastati 2019-0 Yes [id number] 40mg Take 2 [facility] 20 mg 9-16 tablets by [facility] of tablet 00:00: mouth at [place] 00 bedtime. Medical [facility] calcium 2018-0 Yes [id number] 1000mg Take 2 U nivers carbonate 9-16 tablets by ity of (CALCIUM 00:00: mouth 3 [place] 500) 500 mg 00 (three) Medic al calcium times Branch (1,250 mg) daily with tablet meals. meclizine 2018-0 Yes [id number] 25mg Take 2 [facility] 12.5 mg 9-16 tablets by [facility]y of tablet 00:00: mouth 3 [place] 00 (three) Medical times Branch daily as needed for Dizziness. [place] (for dizziness) sevelamer 2018-0 Yes [id number] 800mg Take 1 [facility] 800 mg 9-16 tablet by [facility] of tablet 00:00: mouth 3 [place] 00 (three) Medical times Branch daily with meals. amLODIPine 2018-0 Yes [id number] 10mg Take 1 [facility] 10 mg 9-16 tablet by [facility] of tablet 00:00: mouth [place] 00 daily. Medical [facility] aspirin 81 2018-0 Yes [id number] 81mg Take 1 [facility] mg chewable 9-16 tablet by [facility] of tablet 00:00: mouth [place] 00 daily. Medical Branch atorvastati 2018-0 Yes [id number] 40mg Take 2 [facility] 20 mg 9-16 tablets by [facility] of tablet 00:00: mouth at [place] 00 bedtime. Medical Branch calcium 2018-0 Yes [id number] 1000mg Take 2 [facility] nivers carbonate 9-16 tablets by ity of (CALCIUM 00:00: mouth 3 [place] 500) 500 mg 00 (three) Medic al calcium times Branch (1,250 mg) daily with tablet meals. meclizine 2018-0 Yes [id number] 25mg Take 2 [facility] n[facility] 12.5 mg 9-16 tablets by [facility] of tablet 00:00: mouth 3 [place] 00 (three) Medical times Branch daily as needed for Dizziness. [place] (for dizziness) sevelamer 2018-0 Yes [id number] 800mg Take 1 [facility] 800 mg 9-16 tablet by [facility] of tablet 00:00: mouth 3 [place] 00 (three) Medical times Branch daily with meals. amLODIPine 2019-0 Yes [id number] 10mg Take 1 [facility] 10 mg 9-16 tablet by [facility] of tablet 00:00: mouth [place] 00 daily. Medical Branch aspirin 81 2018-0 Yes [id number] 81mg Take 1 [facility] mg chewable 9-16 tablet by [facility] of tablet 00:00: mouth [place] 00 daily. Medical Branch atorvastati 2018-0 Yes [id number] 40mg Take 2 [facility] 20 mg 9-16 tablets by [facility]y of tablet 00:00: mouth at [place] 00 bedtime. Medical Branch calcium 2018-0 Yes [id number] 1000mg Take 2 [facility] carbonate 9-16 tablets by ity of (CALCIUM 00:00: mouth 3 500) 500 mg 00 (three) Medic al calcium times Branch (1,250 mg) daily with tablet meals. meclizine 2018-0 Yes [id number] 25mg Take 2 [facility] 12.5 mg 9-16 tablets by [facility] of tablet 00:00: mouth 3 (three) Medical times Branch daily as needed for Dizziness. [place] (for dizziness) sevelamer 2018-0 Yes [id number] 800mg Take 1 [facility] 800 mg 9-16 tablet by [facility] of tablet 00:00: mouth 3 (three) Medical times Branch daily with meals. amLODIPine 2018-0 Yes [id number] 10mg Take 1 [facility] 10 mg 9-16 tablet by [facility] of tablet 00:00: mouth [place] 00 daily. Medical Branch aspirin 81 2018-0 Yes [id number] 81mg Take 1 [facility] mg chewable 9-16 tablet by [facility] of tablet 00:00: mouth [place] 00 daily. Medical Branch atorvastati 2018-0 Yes [id number] 40mg Take 2 [facility] n 20 mg 9-16 tablets by [facility]y of tablet 00:00: mouth at [place] 00 bedtime. Medical [facility] calcium 2018-0 Yes [id number] 1000mg Take 2 [facility] n[facility] carbonate 9-16 tablets by ity of (CALCIUM 00:00: mouth 3 [place] 500) 500 mg 00 (three) Medic al calcium times Branch (1,250 mg) daily with tablet meals. meclizine 2018-0 Yes [id number] 25mg Take 2 [facility] 12.5 mg 9-16 tablets by [facility] of tablet 00:00: mouth 3 [place] 00 (three) Medical times Branch daily as needed for Dizziness. [place] (for dizziness) sevelamer 2019-0 Yes [id number] 800mg Take 1 [facility] 800 mg 9-16 tablet by [facility] of tablet 00:00: mouth 3 (three) Medical times Branch daily with meals. amLODIPine 2019-0 Yes [id number] 10mg Take 1 [facility] 10 mg 9-16 tablet by [facility] of tablet 00:00: mouth [place] 00 daily. Medical Branch aspirin 81 2019-0 Yes [id number] 81mg Take 1 [facility] mg chewable 9-16 tablet by [facility] of tablet 00:00: mouth [place] 00 daily. Medical Branch atorvastati 2018-0 Yes [id number] 40mg Take 2 [facility] n 20 mg 9-16 tablets by [facility] of tablet 00:00: mouth at [place] 00 bedtime. Medical Branch calcium 2018-0 Yes [id number] 1000mg Take 2 [facility] carbonate 9-16 tablets by ity of (CALCIUM 00:00: mouth 3 500) 500 mg 00 (three) Medic al calcium times Branch (1,250 mg) daily with tablet meals. meclizine 2018-0 Yes [id number] 25mg Take 2 [facility] 12.5 mg 9-16 tablets by [facility] of tablet 00:00: mouth 3 (three) Medical times Branch daily as needed for Dizziness. [place] (for dizziness) sevelamer 2018-0 Yes [id number] 800mg Take 1 [facility] 800 mg 9-16 tablet by [facility] of tablet 00:00: mouth 3 00 (three) Medical times Branch daily with meals. atorvastati 2018-0 Yes [id number] 40mg Take 2 [facility] n 20 mg 9-16 tablets by [facility] of tablet 00:00: mouth at [place] 00 bedtime. Medical Branch calcium 2018-0 Yes [id number] 1000mg Take 2 [facility] nivers carbonate 9-16 tablets by ity of (CALCIUM 00:00: mouth 3 500) 500 mg 00 (three) Medic al calcium times Branch (1,250 mg) daily with tablet meals. meclizine 2019-0 Yes [id number] 25mg Take 2 [facility]ivers 12.5 mg 9-16 tablets by [facility]y of tablet 00:00: mouth 3 00 (three) Medical times Branch daily as needed for Dizziness. [place] (for dizziness) atorvastati Yes [id number] 40mg Take 2 [facility] n 20 mg 9-16 tablets by [facility]y of tablet 00:00: mouth at [place] 00 bedtime. Medical Branch calcium Yes [id number] 1000mg Take 2 [facility] n[facility] carbonate 9-16 tablets by ity of (CALCIUM 00:00: mouth 3 [place] 500) 500 mg 00 (three) Medic al calcium times Branch (1,250 mg) daily with tablet meals. meclizine Yes [id number] 25mg Take 2 [facility] nivers 12.5 mg 9-16 tablets by ity of tablet 00:00: mouth 3 [place] 00 (three) Medical times Branch daily as needed for Dizziness. Para mare[place] (for dizziness) atorvastati Yes [id number] 40mg Take 2 [facility] n 20 mg 9-16 tablets by ity of tablet 00:00: mouth at [place] 00 bedtime. Medical Branch calcium Yes [id number] 1000mg Take 2 [facility] nivers carbonate 9-16 tablets by ity of (CALCIUM 00:00: mouth 3 [place] 500) 500 mg 00 (three) Medic al calcium times Branch (1,250 mg) daily with tablet meals. meclizine Yes [id number] 25mg Take 2 [facility] nivers 12.5 mg 9-16 tablets by ity of tablet 00:00: mouth 3 [place] 00 (three) Medical times Branch daily as needed for Dizziness. Para zain[place] (for dizziness) amLODIPine 2022- No [id number] 10mg Take 1 [facility] 10 mg 9-16 08-10 tablet by ity of tablet 00:00: 00:00 mouth [place] 00 :00 daily. Medical Branch aspirin 81 3- No [id number] 81mg Take 1 [facility] mg chewable 9-16 08-10 tablet by it y of tablet 00:00: 00:00 mouth [place] 00 :00 daily. Medical Branch sevelamer 3- No [id number] 800mg Take 1 [facility] 800 mg 9-16 08-10 tablet by ity of tablet 00:00: 00:00 mouth 3 [place] 00 :00 (three) Medical times Branch daily with meals. amLODIPine 3- No [id number] 10mg Take 1 [facility] 10 mg 9-16 08-10 tablet by ity of tablet 00:00: 00:00 mouth [place] 00 :00 daily. Medical Branch aspirin 81 2018-2022- No [id number] 81mg Take 1 [facility] mg chewable 9-16 08-10 tablet by it y of tablet 00:00: 00:00 mouth [place] 00 :00 daily. Medical Branch sevelamer 2022- No [id number] 800mg Take 1 [facility] 800 mg 9-16 08-10 tablet by ity of tablet 00:00: 00:00 mouth 3 [place] 00 :00 (three) Medical times Branch daily with meals. [...] ne 150 mcg 8-21 tablet 00:00: 00 Vital Signs Vital Name Observation Time Observation Value Comments Source HEIGHT 2019-11-07 00:00:00 162.6 cm WEIGHT 2019-11-07 00:00:00 76.4 kg Systolic blood 2022-12-10 12:11:00 147 mm[Hg] Univer sity of pressure [facility] Diastolic blood 2022-12-10 12:11:00 75 mm[Hg] Unive rsity of pressure [place] [facility] Heart rate 2022-12-10 12:11:00 59 /min [facility] [place] [facility] Body temperature 2022-12-10 12:11:00 36.28 Maureen [facility] [place] [facility] Respiratory rate 2022-12-10 12:11:00 16 /min [facility] [place] [facility] Oxygen saturation in 2022-12-10 12:11:00 96 /min [facility] Arterial blood by [place] [facility] Pulse oximetry Branch Body weight 2022-12-10 00:07:00 71 kg [facility] [place] [facility] BMI 2022-12-10 00:07:00 26.87 kg/m2 [facility] [place] [facility] Systolic blood 2021-12-02 19:06:00 116 mm[Hg] [facility] sity of pressure [place] [facility] Diastolic blood 2021-12-02 19:06:00 68 mm[Hg] Unive rsity of pressure [place] [facility] Heart rate 2021-12-02 19:06:00 69 /min [facility] [place] [facility] Body height 2021-12-02 19:06:00 162.6 cm [facility] [place] [facility] Body weight 2021-12-02 19:06:00 78.019 kg [facility] [place] [facility] BMI 2021-12-02 19:06:00 29.52 kg/m2 [facility] [place] [facility] Oxygen saturation in 2021-12-02 19:06:00 95 /min [facility] Arterial blood by [place] [facility] Pulse oximetry Branch HEIGHT 2019-11-07 00:00:00 162.6 cm WEIGHT 2019-11-07 00:00:00 76.4 kg HEIGHT 2019-12-14 00:00:00 162.6 cm WEIGHT 2019-12-14 00:00:00 79.379 kg HEIGHT 2019-12-14 00:00:00 162.6 cm WEIGHT 2019-12-14 00:00:00 79.379 kg Systolic blood 2022-12-10 12:11:00 147 mm[Hg] Univer sity of pressure [place] [facility] Diastolic blood 2022-12-10 12:11:00 75 mm[Hg] Unive rsity of pressure [place] [facility] Heart rate 2022-12-10 12:11:00 59 /min [facility] [place] [facility] Body temperature 2022-12-10 12:11:00 36.28 [facility] 2022-12-10 12:11:00 16 /min [facility] Oxygen saturation in 2022-12-10 12:11:00 96 /min [facility] Arterial blood by [facility] Pulse oximetry Branch Body weight 2022-12-10 00:07:00 71 kg [facility] BMI 2022-12-10 00:07:00 26.87 kg/m2 [facility] BP Systolic 2022-04-23 11:19:00 173 mm[Hg] BP [...] /min Respiratory Rate 2021-12-04 16:11:00 18.00 /min Body height 2021-12-02 19:06:00 162.6 cm [facility] BP Systolic 2021-12-02 11:12:00 112 mm[Hg] BP [...] /min Procedures Procedure Date / Time Performing Source Performed Clinician CBC WITH DIFF 2022-12-10 10:22:00 [facility] BASIC METABOLIC PANEL 2022-12-10 10:22:[address] [facility] (NA, K, CL, CO2, [place] [facility] GLUCOSE, BUN, CREATININE, [place]) MAGNESIUM 2022-12-10 10:22:00 [facility] 10:22[facility]00 [facility]22-12-10 10:22:00 [facility] 2022-12-10 10:22:00 [facility] BASIC [facility]ABOLIC PANEL 2022-12-10 10:22:[address] [facility] (NA, K, CL, CO2, [facility] GLUCOSE, BUN, CREATININE, CA) CBC WITH DIFF 2022-12-10 10:22:00 [facility]FF 2022-12-09 09:20:[facility] 2022-12-09 09:20:[address] [facility] (NA, K, CL, CO2, [facility] GLUCOSE, BUN, CREATININE, CA) MAGNESIUM 2022-12-09 09:20:00 [facility] 2022-12-09 09:20:00 [facility] 2022-12-09 09:20:00 [facility] 2022-12-09 09:20:00 [facility]IC METABOLIC PANEL 2022-12-09 09:20:00 [facility] (NA, K, CL, CO2, [facility] GLUCOSE, BUN, CREATININE, CA) CBC WITH DIFF 2022-12-09 09:20:00 [facility]AUTOMATED) 2022-12-08 16:06:00 [facility]OMATED) 2022-12-08 16:06:00 [facility] PR[facility] / INR 2022-12-08 14:38:00 [facility] PROTHROMBIN TIME / INR 2022-12-08 14:38:00 [facility] POCT GLUCOSE (AUTOMATED) 2022-12-08 14:06:00 [facility] (AUTOMATED) 2022-12-08 14:06:00 [facility] CBC WITH DIFF 2022-12-08 09:50:00 [facility] BASIC METABOLIC PANEL 2022-12-08 09:50:[address] [facility] (NA, K, CL, CO2, [facility] GLUCOSE, BUN, CREATININE, CA) MAGNESIUM 2022-12-08 09:50:00 [facility] 2022-12-08 09:50:00 [facility] 2022-12-08 09:50:00 [facility] 2022-12-08 09:50:00 [facility] BASIC METABOLIC PANEL 2022-12-08 09:50:[address] [facility] (NA, K, CL, CO2, [facility] GLUCOSE, BUN, CREATININE, CA) CBC WITH DIFF 2022-12-08 09:50:00 [facility] CBC WITHOUT DIFF 2022-12-08 02:56:00 [facility] CBC WITHOUT DIFF 2022-12-08 02:56:00 [facility] POCT GLUCOSE (AUTOMATED) 2022-12-08 01:00:00 Ho Vizcaino Un i[facility] POCT GLUCOSE (AUTOMATED) 2022-12-08 01:00:00 [facility] BASIC METABOLIC PANEL 2022-12-07 20:34:00 Noman [facility] (NA, K, CL, CO2, [facility] GLUCOSE, BUN, CREATININE, CA) MAGNESIUM 2022-12-07 20:34:00 [facility] PH[facility]US 2022-12-07 20:34:00 [facility] CBC WITH DIFF 2022-12-07 20:34:00 [facility] PHOSPH[facility]US 2022-12-07 20:34:00 [facility] MAGNESIUM 2022-12-07 20:34:00 [facility] BASIC METABOLIC PANEL 2022-12-07 20:34:00 [facility] (NA, K, CL, CO2, [facility] GLUCOSE, BUN, CREATININE, CA) CBC WITH DIFF 2022-12-07 20:34:00 [facility] EXTERNAL PROVIDER 2022-10-15 05:01:00 Doctor Unassigned, [facility] RECORDS [place] [facility] EXTERNAL PROVIDER 2022-10-15 05:01:00 Doctor Unassigned, [facility] RECORDS [place] [place] [facility] POCT GLUCOSE (AUTOMATED) 2022-10-08 16:55:00 [facility]SE (AUTOMATED) 2022-10-08 12:23:00 Jim Landeros versity [facility] PHOSPHORUS 2022-10-08 08:18:00 Patricia [facility] MAGNESIUM 2022-10-08 08:18:00 Patricia [facility] BASIC METABOLIC PANEL 2022-10-08 08:18:00 Patricia [facility] (NA, K, CL, CO2, Medical Branch GLUCOSE, BUN, CREATININE, CA) CBC WITH DIFF 2022-10-08 08:18:00 Patricia [facility] POCT GLUCOSE (AUTOMATED) 2022-10-08 02:18:00 Jim Landeros [facility] POCT GLUCOSE (AUTOMATED) 2022-10-07 22:03:00 Jim Landeros [facility] ACUTE CARE ARTERIAL 2022-10-07 19:50:00 Yola Florentino [facility] BLOOD GAS [facility] POCT GLUCOSE (AUTOMATED) 2022-10-07 19:13:00 Jim Landeros [facility] POCT GLUCOSE (AUTOMATED) 2022-10-07 12:30:00 Jim Landeros [facility] BASIC METABOLIC PANEL 2022-10-07 10:46:00 [facility] (NA, K, CL, CO2, [facility] GLUCOSE, BUN, CREATININE, CA) CBC WITH DIFF 2022-10-07 10:46:00 [facility] MAGNESIUM 2022-10-07 10:46:00 [facility] PHOS[facility]ORUS 2022-10-07 10:46:00 [facility] ([facility]OMATED) 2022-10-07 01:48:00 Jim Landeros [facility] COVID-19 (ID NOW RAPID 2022-10-06 22:46:00 Phi [facility] TESTING) [facility] LAB ONLY COVID 2022-10-06 22:46:00 Phi [facility] INTERPRETATION [facility] POCT GLUCOSE (AUTOMATED) 2022-10-06 21:22:00 Jim Landeros [facility] POCT GLUCOSE (AUTOMATED) 2022-10-06 17:56:00 Jim Landeros [facility] BASIC METABOLIC PANEL 2022-10-06 11:15:00 [facility], K, CL, CO2, [facility] Branch GLUCOSE, BUN, CREATININE, CA) MAGNESIUM 2022-10-06 11:15:00 [facility] PHOSPHORUS 2022-10-06 11:15:00 [facility] CBC WITH DIFF 2022-10-06 11:14:00 [facility] POCT GLUCOSE (AUTOMATED) 2022-10-06 02:35:00 Jim Landeros [facility] HEPATITIS B SURFACE 2022-10-05 14:06:00 Rose Good [facility] ANTIBODY [facility] FERRITIN SERUM 2022-10-05 14:06:00 [facility] IRON PANEL 2022-10-05 14:06:00 [facility] PHOSPHORUS 2022-10-05 11:28:00 Patricia [facility] MAGNESIUM 2022-10-05 11:28:00 Patricia [facility] BASIC METABOLIC PANEL 2022-10-05 11:28:00 [facility] ([facility], K, CL, CO2, [facility] GLUCOSE, BUN, CREATININE, CA) CBC WITH DIFF 2022-10-05 11:28:00 Patricia [facility] HEPATITIS B SURFACE 2022-10-05 11:28:00 Rose Good [facility] ANTIGEN [facility] DISCLOSURE AND CONSENT, 2022-10-05 05:01:00 Doctor Unassigned, [facility] MEDICAL AND SURGICAL [place] [facility] PROCEDURES POCT GLUCOSE (AUTOMATED) 2022-10-05 01:52:00 Jim Landeros [facility] FL TIME OR 2022-10-04 21:18:00 Jim Landeros [facility] (NON-REPORTABLE) [facility] INTUBATION 2022-10-04 19:50:00 Lo Santiago [facility] Green [facility] ARTERIOVENOUS FISTULA 2022-10-04 19:00:00 Jim Landeros [facility] THROMBECTOMY [facility] BASIC METABOLIC PANEL 2022-10-04 06:05:00 Chela Gomez [facility] (NA, K, CL, CO2, Medical Branch GLUCOSE, BUN, CREATININE, CA) CBC WITH DIFF 2022-10-04 06:05:00 Chela Gomez [facility] HOSPITAL ADMISSION 2022-10-03 05:01:00 Doctor Unassigned, [facility] [place] [facility] REFERRAL- 2022-05-28 06:01:00 Doctor Unassigned, [facility] REQUEST/RESPONSE [place] [facility] [id number] 2022-04-17 00:00:00 [facility] [id number] 2022-04-08 00:00:00 [facility] Plan of Care Planned Activity Planned Date Details Comments Source Future Scheduled 2023-01-06 [facility] 11:21:23 [facility]oplasm [facility] colon Hospital (procedure) [code = 019184513] Future Scheduled 2023-01-06 [facility] 11:21:23 [facility] colon Hospital (procedure) [code = 199013080] Future Scheduled 2023-01-06 [facility] for [facility] 11:21:23 neoplasm [facility] colon Hospital (procedure) [code = 033281169] Future Scheduled 2023-01-06 COVID-19 VACCINE (#1) [facility] 11:21:23 [code = COVID-19 VACCINE Hos pital (#1)] Future Scheduled 2023-01-06 Screening for malignant [facility] 11:21:23 neoplasm [facility] colon Hospital (procedure) [code = 345032884] Future Scheduled 2023-01-06 [facility]ening for malignant [facility] 11:21:23 neoplasm of colon Hospital (procedure) [code = 759861009] Future Scheduled 2023-01-06 SHINGLES VACCINES (1 of [facility] 11:21:23 2) [code = SHINGLES Hospital VACCINES (1 of 2)] Future Scheduled 2023-01-06 INFLUENZA VACCINE (#1) [facility] 11:21:23 [code = INFLUENZA VACCINE Ho spital (#1)] Future Scheduled 2023-01-01 INFLUENZA VACCINE (Season [...] Vaccine [facility] (#1)] Future Scheduled 2022-12-07 Screening for malignant [facility] 10:30:33 neoplasm of colon Hospital (procedure) [code = 451693183] Future Scheduled 2022-12-07 Screening for malignant [facility] 10:30:33 neoplasm of colon Hospital (procedure) [code = 940589243] Future Scheduled 2022-12-07 Screening for malignant [facility] 10:30:33 neoplasm of colon Hospital (procedure) [code = 703119161] Future Scheduled 2022-12-07 COVID-19 VACCINE (#1) [facility] 10:30:33 [code = COVID-19 VACCINE Hos pital (#1)] Future Scheduled 2022-12-07 Screening for malignant [facility] 10:30:33 neoplasm of colon Hospital (procedure) [code = 890051646] Future Scheduled 2022-12-07 Screening for malignant [facility] 10:30:33 neoplasm of colon Hospital (procedure) [code = 781944631] Future Scheduled 2022-12-07 SHINGLES VACCINES (1 of [facility] 10:30:33 2) [code = SHINGLES Hospital VACCINES (1 of 2)] Future Scheduled 2022-12-07 INFLUENZA VACCINE [code = [facility] 10:30:33 INFLUENZA VACCINE] Hospital Future Scheduled 2022-12-02 Screening for malignant [facility] 10:27:56 neoplasm of colon Hospital (procedure) [code = 212301029] Future Scheduled 2022-12-02 Screening for malignant [facility] 10:27:56 neoplasm of colon Hospital (procedure) [code = 667527387] Future Scheduled 2022-12-02 Screening for malignant [facility] 10:27:56 neoplasm of colon Hospital (procedure) [code = 795762943] Future Scheduled 2022-12-02 COVID-19 VACCINE (#1) [facility] 10:27:56 [code = COVID-19 VACCINE Hos pital (#1)] Future Scheduled 2022-12-02 Screening for malignant [facility] 10:27:56 neoplasm of colon Hospital (procedure) [code = 418849030] Future Scheduled 2022-12-02 Screening for malignant [facility] 10:27:56 neoplasm of colon Hospital (procedure) [code = 028893096] Future Scheduled 2022-12-02 SHINGLES VACCINES (1 of [facility] 10:27:56 2) [code = SHINGLES Hospital VACCINES (1 of 2)] Future Scheduled 2022-12-02 INFLUENZA VACCINE [code = [facility] 10:27:56 INFLUENZA VACCINE] Hospital Future Scheduled 2022-12-02 Screening for malignant [facility] 10:27:56 neoplasm of colon Hospital (procedure) [code = 900234456] Future Scheduled 2022-12-02 Screening for malignant [facility] 10:27:56 neoplasm of colon Hospital (procedure) [code = 251053998] Future Scheduled 2022-12-02 Screening for malignant [facility] 10:27:56 neoplasm of colon Hospital (procedure) [code = 930029149] Future Scheduled 2022-12-02 COVID-19 VACCINE (#1) [facility] 10:27:56 [code = COVID-19 VACCINE Hos pital (#1)] Future Scheduled 2022-12-02 Screening for malignant [facility] 10:27:56 neoplasm of colon Hospital (procedure) [code = 529488364] Future Scheduled 2022-12-02 Screening for malignant [facility] 10:27:56 neoplasm of colon Hospital (procedure) [code = 212443084] Future Scheduled 2022-12-02 SHINGLES VACCINES (1 of [facility] 10:27:56 2) [code = SHINGLES Hospital VACCINES (1 of 2)] Future Scheduled 2022-12-02 INFLUENZA VACCINE [code = [facility] 10:27:56 INFLUENZA VACCINE] Hospital Future Scheduled 2022-10-18 Screening for malignant [facility] 02:19:11 neoplasm of colon Hospital (procedure) [code = 540250072] Future Scheduled 2022-10-18 Screening for malignant [facility] 02:19:11 neoplasm of colon Hospital (procedure) [code = 109629531] Future Scheduled 2022-10-18 Screening for malignant [facility] 02:19:11 neoplasm of colon Hospital (procedure) [code = 290750907] Future Scheduled 2022-10-18 COVID-19 VACCINE (#1) [facility] 02:19:11 [code = COVID-19 VACCINE Hos pital (#1)] Future Scheduled 2022-10-18 Screening for malignant [facility] 02:19:11 neoplasm of colon Hospital (procedure) [code = 143718057] Future Scheduled 2022-10-18 Screening for malignant [facility] 02:19:11 neoplasm of colon Hospital (procedure) [code = 810055719] Future Scheduled 2022-10-18 SHINGLES VACCINES (1 of [facility] 02:19:11 2) [code = SHINGLES Hospital VACCINES (1 of 2)] Future Scheduled 2022-10-18 INFLUENZA VACCINE [code = [facility] 02:19:11 INFLUENZA VACCINE] Hospital Future Scheduled 2022-10-18 Screening for malignant [facility] 02:19:11 neoplasm of colon Hospital (procedure) [code = 396951105] Future Scheduled 2022-10-18 Screening for malignant [facility] 02:19:11 neoplasm of colon Hospital (procedure) [code = 814050054] Future Scheduled 2022-10-18 Screening for malignant [facility] 02:19:11 neoplasm of colon Hospital (procedure) [code = 399398237] Future Scheduled 2022-10-18 COVID-19 VACCINE (#1) [facility] 02:19:11 [code = COVID-19 VACCINE Hos pital (#1)] Future Scheduled 2022-10-18 Screening for malignant [facility] 02:19:11 neoplasm of colon Hospital (procedure) [code = 369326704] Future Scheduled 2022-10-18 Screening for malignant [facility] 02:19:11 neoplasm of colon Hospital (procedure) [code = 529543773] Future Scheduled 2022-10-18 SHINGLES VACCINES (1 of [facility] 02:19:11 2) [code = SHINGLES Hospital VACCINES (1 of 2)] Future Scheduled 2022-10-18 INFLUENZA VACCINE [code = [facility] 02:19:11 INFLUENZA VACCINE] Hospital Future Scheduled 2022-10-09 Screening for malignant [facility] 20:34:22 neoplasm of colon Hospital (procedure) [code = 867820708] Future Scheduled 2022-10-09 Screening for malignant [facility] 20:34:22 neoplasm of colon Hospital (procedure) [code = 474717982] Future Scheduled 2022-10-09 Screening for malignant [facility] 20:34:22 neoplasm of colon Hospital (procedure) [code = 985421002] Future Scheduled 2022-10-09 COVID-19 VACCINE (#1) [facility] 20:34:22 [code = COVID-19 VACCINE Hos pital (#1)] Future Scheduled 2022-10-09 Screening for malignant [facility] 20:34:22 neoplasm of colon Hospital (procedure) [code = 593936389] Future Scheduled 2022-10-09 Screening for malignant [facility] 20:34:22 neoplasm of colon Hospital (procedure) [code = 316148334] Future Scheduled 2022-10-09 SHINGLES VACCINES (1 of [facility] 20:34:22 2) [code = SHINGLES Hospital VACCINES (1 of 2)] Future Scheduled 2022-10-09 INFLUENZA VACCINE [code = [facility] 20:34:22 INFLUENZA VACCINE] Hospital Future Scheduled 2022-10-09 Screening for malignant [facility] 20:34:22 neoplasm of colon Hospital (procedure) [code = 658985241] Future Scheduled 2022-10-09 Screening for malignant [facility] 20:34:22 neoplasm of colon Hospital (procedure) [code = 208389809] Future Scheduled 2022-10-09 Screening for malignant [facility] 20:34:22 neoplasm of colon Hospital (procedure) [code = 309630297] Future Scheduled 2022-10-09 COVID-19 VACCINE (#1) [facility] 20:34:22 [code = COVID-19 VACCINE Hos pital (#1)] Future Scheduled 2022-10-09 Screening for malignant [facility] 20:34:22 neoplasm of colon Hospital (procedure) [code = 490796721] Future Scheduled 2022-10-09 Screening for malignant [facility] 20:34:22 neoplasm of colon Hospital (procedure) [code = 603151117] Future Scheduled 2022-10-09 SHINGLES VACCINES (1 of [facility] 20:34:22 2) [code = SHINGLES Hospital VACCINES (1 of 2)] Future Scheduled 2022-10-09 INFLUENZA VACCINE [code = [facility] 20:34:22 INFLUENZA VACCINE] Hospital Future Scheduled 2022-08-02 COVID-19 VACCINE (#1) [facility] 10:59:50 [code = COVID-19 VACCINE Hos pital (#1)] Future Scheduled 2022-08-02 COLONOSCOPY SCREENING [facility] 10:59:50 [code = COLONOSCOPY Hospital SCREENING] Future Scheduled 2022-08-02 SHINGLES VACCINES (1 of [facility] 10:59:50 2) [code = SHINGLES Hospital VACCINES (1 of 2)] Future Scheduled 2022-08-02 INFLUENZA VACCINE [code = [facility] 10:59:50 INFLUENZA VACCINE] Hospital Future Scheduled 2022-08-02 COVID-19 VACCINE (#1) [facility] 10:59:50 [code = COVID-19 VACCINE Hos pital (#1)] Future Scheduled 2022-08-02 COLONOSCOPY SCREENING [facility] 10:59:50 [code = COLONOSCOPY Hospital SCREENING] Future Scheduled 2022-08-02 SHINGLES VACCINES (1 of [facility] 10:59:50 2) [code = SHINGLES Hospital VACCINES (1 of 2)] Future Scheduled 2022-08-02 INFLUENZA VACCINE [code = [facility] 10:59:50 INFLUENZA VACCINE] Hospital Future Scheduled 2022-08-02 COVID-19 VACCINE (#1) [facility] 10:59:50 [code = COVID-19 VACCINE Hos pital (#1)] Future Scheduled 2022-08-02 COLONOSCOPY SCREENING [facility] 10:59:50 [code = COLONOSCOPY Hospital SCREENING] Future Scheduled 2022-08-02 SHINGLES VACCINES (1 of [facility] 10:59:50 2) [code = SHINGLES Hospital VACCINES (1 of 2)] Future Scheduled 2022-08-02 INFLUENZA VACCINE [code = [facility] 10:59:50 INFLUENZA VACCINE] Hospital Future Scheduled 2022-08-02 COVID-19 VACCINE (#1) [facility] 10:59:50 [code = COVID-19 VACCINE Hos pital (#1)] Future Scheduled 2022-08-02 COLONOSCOPY SCREENING [facility] 10:59:50 [code = COLONOSCOPY Hospital SCREENING] Future Scheduled 2022-08-02 SHINGLES VACCINES (1 of [facility] 10:59:50 2) [code = SHINGLES Hospital VACCINES (1 of 2)] Future Scheduled 2022-08-02 INFLUENZA VACCINE [code = [facility] 10:59:50 INFLUENZA VACCINE] Hospital Future Scheduled 2022-08-02 COVID-19 VACCINE (#1) [facility] 10:59:50 [code = COVID-19 VACCINE Hos pital (#1)] Future Scheduled 2022-08-02 COLONOSCOPY SCREENING [facility] 10:59:50 [code = COLONOSCOPY Hospital SCREENING] Future Scheduled 2022-08-02 SHINGLES VACCINES (1 of [facility] 10:59:50 2) [code = SHINGLES Hospital VACCINES (1 of 2)] Future Scheduled 2022-08-02 INFLUENZA VACCINE [code = [facility] 10:59:50 INFLUENZA VACCINE] Hospital Future Scheduled 2022-08-02 COVID-19 VACCINE (#1) [facility] 10:59:50 [code = COVID-19 VACCINE Hos pital (#1)] Future Scheduled 2022-08-02 COLONOSCOPY SCREENING [facility] 10:59:50 [code = COLONOSCOPY Hospital SCREENING] Future Scheduled 2022-08-02 SHINGLES VACCINES (1 of [facility] 10:59:50 2) [code = SHINGLES Hospital VACCINES (1 of 2)] Future Scheduled 2022-08-02 INFLUENZA VACCINE [code = [facility] 10:59:50 INFLUENZA VACCINE] Hospital Future Scheduled 2022-08-02 COVID-19 VACCINE (#1) [facility] 10:59:50 [code = COVID-19 VACCINE Hos pital (#1)] Future Scheduled 2022-08-02 COLONOSCOPY SCREENING [facility] 10:59:50 [code = COLONOSCOPY Hospital SCREENING] Future Scheduled 2022-08-02 SHINGLES VACCINES (1 of [facility] 10:59:50 2) [code = SHINGLES Hospital VACCINES (1 of 2)] Future Scheduled 2022-08-02 INFLUENZA VACCINE [code = [facility] 10:59:50 INFLUENZA VACCINE] Hospital Future Scheduled 2022-07-12 Lipid panel (procedure) [facility] 00:00:00 [code = 37439933] Medical Ce nter Future Scheduled 2022-07-12 Lipid panel (procedure) [facility] 00:00:00 [code = 36892203] Medical Ce nter Future Scheduled 2022-07-12 Lipid panel (procedure) [facility] 00:00:00 [code = 14565984] Medical Ce nter Future Scheduled 2022-07-12 Lipid panel (procedure) [facility] 00:00:00 [code = 88515070] Medical Ce nter Future Scheduled 2022-07-12 Lipid panel (procedure) [facility] 00:00:00 [code = 10049193] Medical Ce nter Future Scheduled 2022-07-12 Lipid panel (procedure) [facility] 00:00:00 [code = 21094683] Medical Ce nter Future Scheduled 2022-07-12 Lipid panel (procedure) [facility] 00:00:00 [code = 33263728] Medical Ce nter Future Scheduled 2022-07-12 Lipid panel (procedure) [facility] 00:00:00 [code = 47001403] Medical Ce nter Future Scheduled 2022-07-12 Lipid panel (procedure) [facility] 00:00:00 [code = 71207903] Medical Ce nter Future Scheduled 2022-07-12 Lipid panel (procedure) [facility] 00:00:00 [code = 16580610] Medical Ce nter Future Scheduled 2022-07-12 Lipid panel (procedure) [facility] 00:00:00 [code = 46194329] Medical Ce nter Future Scheduled 2022-07-12 Lipid panel (procedure) [facility] 00:00:00 [code = 22854471] Medical Ce nter Future Scheduled 2022-07-12 Lipid panel (procedure) [facility] 00:00:00 [code = 48094923] Medical Ce nter Future Scheduled 2022-07-12 Lipid panel (procedure) [facility] 00:00:00 [code = 45326079] Medical Ce nter Future Scheduled 2022-07-12 Lipid panel (procedure) [facility] 00:00:00 [code = 56772779] Medical Ce nter Future Scheduled 2022-07-12 Lipid panel (procedure) [facility] 00:00:00 [code = 51842182] Medical Ce nter Future Scheduled 2022-07-12 Lipid panel (procedure) [facility] 00:00:00 [code = 99896329] Medical Ce nter Future Scheduled 2022-07-12 Lipid panel (procedure) [facility] 00:00:00 [code = 25702285] Medical Ce nter Future Scheduled 2022-07-12 Lipid panel (procedure) [facility] 00:00:00 [code = 12525418] Medical Ce nter Future Scheduled 2022-07-12 Lipid panel (procedure) [facility] 00:00:00 [code = 23645189] Medical Ce nter Future Scheduled 2022-07-12 Lipid panel (procedure) [facility] 00:00:00 [code = 61349748] Medical Ce nter Future Scheduled 2022-07-12 Lipid panel (procedure) [facility] 00:00:00 [code = 34721891] Medical Ce nter Future Scheduled 2022-07-12 Lipid panel (procedure) [facility] 00:00:00 [code = 84261794] Medical Ce nter Future Scheduled 2022-07-12 Lipid panel (procedure) [facility] 00:00:00 [code = 85466113] Medical Ce nter Future Scheduled 2022-07-12 Lipid panel (procedure) [facility] 00:00:00 [code = 32365235] Medical Ce nter Future Scheduled 2022-07-12 Lipid panel (procedure) [facility] 00:00:00 [code = 13770197] Medical Ce nter Future Scheduled 2022-07-12 Lipid panel (procedure) [facility] 00:00:00 [code = 33970409] Medical Ce nter Future Scheduled 2022-07-12 Lipid panel (procedure) [facility] 00:00:00 [code = 30815235] Medical Ce nter Future Scheduled 2022-07-12 Lipid panel (procedure) [facility] 00:00:00 [code = 41232203] Medical Ce nter Future Scheduled 2022-07-12 Lipid panel (procedure) [facility] 00:00:00 [code = 23694376] Medical Ce nter Future Scheduled 2022-07-12 Lipid panel (procedure) [facility] 00:00:00 [code = 02224194] Medical Ce nter Future Scheduled 2022-06-15 COVID-19 VACCINE (#1) [facility] 10:12:43 [code = COVID-19 VACCINE Hos pital (#1)] Future Scheduled 2022-06-15 [facility]ONOSCOPY SCREENING [facility] 10:12:43 [code = COLONOSCOPY Hospital SCREENING] Future Scheduled 2022-06-15 SHINGLES VACCINES (1 of [facility] 10:12:43 2) [code = SHINGLES Hospital VACCINES (1 of 2)] Future Scheduled 2022-06-15 INFLUENZA VACCINE [code = [facility] 10:12:43 INFLUENZA VACCINE] Hospital Future Scheduled 2022-06-15 COVID-19 VACCINE (#1) [facility] 10:12:43 [code = COVID-19 VACCINE [facility] (#1)] Future Scheduled 2022-06-15 COLONOSCOPY SCREENING [facility] 10:12:43 [code = COLONOSCOPY Hospital SCREENING] Future Scheduled 2022-06-15 SHINGLES VACCINES ([facility] 10:12:43 2) [code = SHINGLES Hospital VACCINES (1 of 2)] Future Scheduled 2022-06-15 INFLUENZA VACCINE [code = [facility] 10:12:43 INFLUENZA VACCINE] Hospital Future Scheduled 2022-06-15 COVID-19 VACCINE (#1) [facility] 10:12:43 [code = COVID-19 VACCINE [facility] (#1)] Future Scheduled 2022-06-15 COLONOSCOPY SCREENING [facility] 10:12:43 [code = COLONOSCOPY Hospital SCREENING] Future Scheduled 2022-06-15 SHINGLES VACCINES ([facility] 10:12:43 2) [code = SHINGLES Hospital VACCINES (1 of 2)] Future Scheduled 2022-06-15 INFLUENZA VACCINE [code = [facility] 10:12:43 INFLUENZA VACCINE] Hospital Future Scheduled 2022-05-28 COVID-19 VACCINE (#1) [facility] 09:36:27 [code = COVID-19 VACCINE [facility] (#1)] Future Scheduled 2022-05-28 COLONOSCOPY SCREENING [facility] 09:36:27 [code = COLONOSCOPY Hospital SCREENING] Future Scheduled 2022-05-28 SHINGLES VACCINES ([facility] 09:36:27 2) [code = SHINGLES Hospital VACCINES (1 of 2)] Future Scheduled 2022-05-28 INFLUENZA VACCINE [code = [facility] 09:36:27 INFLUENZA VACCINE] Hospital Future Scheduled 2022-05-28 COVID-19 VACCINE (#1) [facility] 09:36:27 [code = COVID-19 VACCINE [facility] (#1)] Future Scheduled 2022-05-28 [facility]OS[facility] SCREENING [facility] 09:36:27 [code = COLONOSCOPY Hospital SCREENING] Future Scheduled 2022-05-28 SHINGLES VACCINES ([facility] 09:36:27 2) [code = SHINGLES Hospital VACCINES (1 of 2)] Future Scheduled 2022-05-28 INFLUENZA VACCINE [code = [facility] 09:36:27 INFLUENZA VACCINE] Hospital Future Scheduled 2022-05-11 COVID-19 VACCINE (#1) [facility] 00:38:04 [code = COVID-19 VACCINE [facility] (#1)] Future Scheduled 2022-05-11 COLONOSCOPY SCREENING [facility] 00:38:04 [code = COLONOSCOPY Hospital SCREENING] Future Scheduled 2022-05-11 SHINGLES VACCINES ([facility] 00:38:04 2) [code = SHINGLES Hospital VACCINES (1 of 2)] Future Scheduled 2022-05-11 INFLUENZA VACCINE [code = [facility] 00:38:04 INFLUENZA VACCINE] Hospital Future Scheduled 2022-05-11 COVID-19 VACCINE (#1) [facility] 00:38:04 [code = COVID-19 VACCINE [facility] (#1)] Future Scheduled 2022-05-11 COLONOSCOPY SCREENING [facility] 00:38:04 [code = COLONOSCOPY Hospital SCREENING] Future Scheduled 2022-05-11 SHINGLES VACCINES ([facility] 00:38:04 2) [code = SHINGLES Hospital VACCINES (1 of 2)] Future Scheduled 2022-05-11 INFLUENZA VACCINE [code = [facility] 00:38:04 INFLUENZA VACCINE] Hospital Future Scheduled 2022-05-[address] [facility] 00:00:00 (12+) [code = DEPRESSION [facility] SCREENING (12+)] Future Scheduled 2022-05-03 DEPRESSION [...] Future Scheduled 2022-04-23 SHINGLES VACCINES ([facility] 11:12:56 2) [code = SHINGLES Hospital VACCINES (1 of 2)] Future Scheduled 2022-04-23 INFLUENZA VACCINE [code = [facility] 11:12:56 INFLUENZA VACCINE] Hospital Future Scheduled 2022-04-20 COVID-19 VACCINE (#1) [facility] 13:44:31 [code = COVID-19 VACCINE [facility] (#1)] Future Scheduled 2022-04-20 COLONOSCOPY SCREENING [facility] 13:44:31 [code = COLONOSCOPY Hospital SCREENING] Future Scheduled 2022-04-20 SHINGLES VACCINES ([facility] 13:44:31 2) [code = SHINGLES Hospital VACCINES (1 of 2)] Future Scheduled 2022-04-20 INFLUENZA VACCINE [code = [facility] 13:44:31 INFLUENZA VACCINE] Hospital Future Scheduled 2022-04-20 COVID-19 VACCINE (#1) [facility] 13:44:31 [code = COVID-19 VACCINE [facility] (#1)] Future Scheduled 2022-04-20 COLONOSCOPY SCREENING [facility] 13:44:31 [code = COLONOSCOPY Hospital SCREENING] Future Scheduled 2022-04-20 SHINGLES VACCINES ([facility] 13:44:31 2) [code = SHINGLES Hospital VACCINES (1 of 2)] Future Scheduled 2022-04-20 INFLUENZA VACCINE [code = [facility] 13:44:31 INFLUENZA VACCINE] Hospital Future Scheduled 2022-04-20 COVID-19 VACCINE (#1) [facility] 13:44:31 [code = COVID-19 VACCINE [facility] (#1)] Future Scheduled 2022-04-20 COLONOSCOPY SCREENING [facility] 13:44:31 [code = COLONOSCOPY Hospital SCREENING] Future Scheduled 2022-04-20 SHINGLES VACCINES ([facility] 13:44:31 2) [code = SHINGLES Hospital VACCINES (1 of 2)] Future Scheduled 2022-04-20 INFLUENZA VACCINE [code = [facility] 13:44:31 INFLUENZA VACCINE] Hospital Future Scheduled 2022-04-20 COVID-19 VACCINE (#1) [facility] 13:44:31 [code = COVID-19 VACCINE [facility] (#1)] Future Scheduled 2022-04-20 COLONOSCOPY SCREENING [facility] 13:44:31 [code = COLONOSCOPY Hospital SCREENING] Future Scheduled 2022-04-20 SHINGLES VACCINES ([facility] 13:44:31 2) [code = SHINGLES Hospital VACCINES (1 of 2)] Future Scheduled 2022-04-20 INFLUENZA VACCINE [code = [facility] 13:44:31 INFLUENZA VACCINE] Hospital Future Scheduled 2022-03-04 HEPATITIS B VACCINES (1 [facility] 13:56:11 of 3 - 3-dose series) Hospit al [code = HEPATITIS B VACCINES (1 of 3 - 3-dose series)] Future Scheduled 2022-03-04 COVID-19 VACCINE (#1) [facility] 13:56:11 [code = COVID-19 VACCINE [facility] (#1)] Future Scheduled 2022-03-04 COLONOSCOPY SCREENING [facility] 13:56:11 [code = COLONOSCOPY Hospital SCREENING] Future Scheduled 2022-03-04 SHINGLES VACCINES ([facility] 13:56:11 2) [code = SHINGLES Hospital VACCINES (1 of 2)] Future Scheduled 2022-03-04 INFLUENZA VACCINE [code = [facility] 13:56:11 INFLUENZA VACCINE] Hospital Future Scheduled 2022-03-04 HEPATITIS B VACCINES (1 [facility] 13:56:11 of 3 - 3-dose series) Hospit al [code = HEPATITIS B VACCINES (1 of 3 - 3-dose series)] Future Scheduled 2022-03-04 COVID-19 VACCINE (#1) [facility] 13:56:11 [code = COVID-19 VACCINE [facility] (#1)] Future Scheduled 2022-03-04 COLONOSCOPY [facility]CREENING [facility] 13:56:11 [code = COLONOSCOPY Hospital SCREENING] Future Scheduled 2022-03-04 SHINGLES VACCINES ([facility] 13:56:11 2) [code = SHINGLES Hospital VACCINES (1 of 2)] Future Scheduled 2022-03-04 INFLUENZA VACCINE [code = [facility] 13:56:11 INFLUENZA VACCINE] Hospital Future Scheduled 2022-03-04 HEPATITIS B VACCINES (1 [facility] 13:56:11 of 3 - 3-dose series) Hospit al [code = HEPATITIS B VACCINES (1 of 3 - 3-dose series)] Future Scheduled 2022-03-04 COVID-19 VACCINE (#1) [facility] 13:56:11 [code = COVID-19 VACCINE [facility] (#1)] Future Scheduled 2022-03-04 [facility]ONOSCOPY SCREENING [facility] 13:56:11 [code = COLONOSCOPY Hospital SCREENING] Future Scheduled 2022-03-04 SHINGLES VACCINES ([facility] 13:56:11 2) [code = SHINGLES Hospital VACCINES (1 of 2)] Future Scheduled 2022-03-04 INFLUENZA VACCINE [code = [facility] 13:56:11 INFLUENZA VACCINE] Hospital Future Scheduled 2022-02-08 HEPATITIS B VACCINES (1 [facility] 14:31:50 of 3 - 3-dose series) Hospit al [code = HEPATITIS B VACCINES (1 of 3 - 3-dose series)] Future Scheduled 2022-02-08 COVID-19 VACCINE (#1) [facility] 14:31:50 [code = COVID-19 VACCINE [facility] (#1)] Future Scheduled 2022-02-08 [facility]ONOSCOPY [facility]CREENING [facility] 14:31:50 [code = COLONOSCOPY Hospital SCREENING] Future Scheduled 2022-02-08 SHINGLES VACCINES ([facility] 14:31:50 2) [code = SHINGLES Hospital VACCINES (1 of 2)] Future Scheduled 2022-02-08 INFLUENZA VACCINE [code = [facility] 14:31:50 INFLUENZA VACCINE] Hospital Future Scheduled 2022-01-03 HEPATITIS B VACCINES (1 [facility] 04:21:26 [facility] [...] [facility] 04:21:26 (procedure) [code = Hospital [id number]] Future Scheduled 2022-01-03 SHINGLES VACCINES ([facility] 04:21:26 2) [code = SHINGLES Hospital VACCINES (1 of 2)] Future Scheduled 2022-01-03 [facility]ONOSCOPY SCREENING [facility] 04:21:26 [code = COLONOSCOPY Hospital SCREENING] Future Scheduled 2022-01-03 INFLUENZA VACCINE [code = [facility] 04:21:26 INFLUENZA VACCINE] Hospital Future Scheduled [...] Future Scheduled 2021-12-27 HEPATITIS B VACCINES (1 [facility] 10:00:17 of 3 - 3-dose series) [...] [facility] 10:00:17 (procedure) [code = Hospital [id number]] Future Scheduled 2021-12-27 SHINGLES VACCINES ([facility] 10:00:17 2) [code = SHINGLES Hospital VACCINES (1 of 2)] Future Scheduled 2021-12-27 COLONOSCOPY SCREENING [facility] 10:00:17 [code = COLONOSCOPY Hospital SCREENING] Future Scheduled 2021-12-27 INFLUENZA VACCINE [code = [facility] 10:00:17 INFLUENZA VACCINE] Hospital Future Scheduled [...] [facility] 00[facility]00 measurement (procedure) [facility] [code = [id number]] Future Scheduled 2020-01-[address] [facility] 00[facility]procedure) [facility] [code = [id number]] Future Scheduled 2020-01-[address] [facility] 00[facility]:00 measurement (procedure) [facility] [code = [id number]] Future Scheduled 2020-01-[address] [facility] 00[facility]00:00 measurement (procedure) [facility] [code = [id number]] Future Scheduled 2020-01-[address] [facility] 00:00:00 measurement (procedure) [facility] [code = [id number]] Future Scheduled 2020-01-[address] [facility] 00[facility]00:00 measurement (procedure) [facility] [code = [id number]] Future Scheduled 2020-01-[address] [facility] 00[facility]00:00 measurement (procedure) [facility] [code = [id number]] Future Scheduled 2020-01-[address] [facility] 00[facility]00:00 measurement (procedure) [facility] [code = [id number]] Future Scheduled 2020-01-[address] [facility] 00:00:00 measurement (procedure) [facility] [code = [id number]] Future Scheduled 2020-01-[address] [facility] 00:00:00 measurement (procedure) [facility] [code = [id number]] Future Scheduled 2020-01-[address] [facility] 00:00:00 measurement (procedure) [facility] [code = [id number]] Future Scheduled 2020-01-[address] [facility] 00:00:00 measurement (procedure) [facility] [code = [id number]] Future Scheduled 2020-01-[address] [facility] 00:00:00 measurement (procedure) [facility] [code = [id number]] Future Scheduled 2020-01-[address] [facility] 00:00:00 measurement (procedure) [facility] [code = [id number]] Future Scheduled 2020-01-[address] [facility] 00:00:00 measurement (procedure) [facility] [code = [id number]] Future Scheduled 2020-01-[address] [facility] 00:00:00 measurement (procedure) [facility] [code = [id number]] Future Scheduled 2020-01-[address] [facility] 00:00:00 measurement (procedure) [facility] [code = [id number]] Future Scheduled 2020-01-[address] [facility] 00:00:00 measurement (procedure) [facility] [code = [id number]] Future Scheduled 2020-01-[address] [facility] 00:00:00 measurement (procedure) [facility] [code = [id number]] Future Scheduled 2020-01-[address] [facility] 00:00:00 measurement (procedure) [facility] [code = [id number]] Future Scheduled 2020-01-[address] [facility] 00:00:00 measurement (procedure) [facility] [code = [id number]] Future Scheduled 2020-01-[address] [facility] 00:00:00 measurement (procedure) [facility] [code = [id number]] Future Scheduled 2020-01-[address] [facility] 00:00:00 measurement (procedure) [facility] [code = [id number]] Future Scheduled 2020-01-[address] [facility] 00:00:00 measurement (procedure) [facility] [code = [id number]] Future Scheduled 2020-01-[address] [facility] 00:00:00 measurement (procedure) [facility] [code = [id number]] Future Scheduled 2020-01-[address] [facility] 00:00:00 measurement (procedure) [facility] [code = [id number]] Future Scheduled 2020-01-[address] [facility] 00:00:00 measurement (procedure) [facility] [code = 88384110] Future Scheduled 2020-01-[address] [facility] 00:00:00 measurement (procedure) [facility] [code = [id number]] Future Scheduled 2020-01-[address] [facility] 00:00:00 measurement (procedure) [facility] [code = [id number]] Future Scheduled 2020-01-[address] [facility] 00:00:00 measurement (procedure) [facility] [code = [id number]] Future Scheduled 2020-01-[address] [facility] 00:00:00 measurement (procedure) [facility] [code = [id number]] Future Scheduled 2019-11-02 [facility]ICARE ANNUAL WELL[facility] 2) [code = SHINGLES [facility] VACCINES (1 of 2)] Future Scheduled [...] screening [facility] [code = [id number]] Future Scheduled [address] [facility] virus screening [facility] (procedure) [code = 801563047] Future Scheduled [address] Human immunodeficiency [facility] virus screening [facility] (procedure) [code = 842870684] Future Scheduled 1975 DIABETIC EYE EXAM [code = [facility] 00:00:00 DIABETIC EYE EXAM] Medical C enter Future Scheduled 1975 Diabetic foot examination [facility] 00:00:00 (regime/therapy) [code = [facility] [id number]] Future Scheduled 1975 Urine screening for [facility] 00:00:00 protein (procedure) [code [facility] = [id number]] Future Scheduled 1975 DIABETIC EYE EXAM [code = [facility] 00:00:00 DIABETIC EYE EXAM] Medical [facility] enter Future Scheduled 1975 Diabetic foot examination [facility] 00:00:00 (regime/therapy) [code = [facility] [id number]] Future Scheduled 1975 Urine screening for [facility] 00:00:00 protein (procedure) [code [facility] = [id number]] Future Scheduled 1975 DIABETIC EYE EXAM [code = [facility] 00:00:00 DIABETIC EYE EXAM] Medical [facility] enter Future Scheduled 1975 Diabetic foot examination [facility] 00:00:00 (regime/therapy) [code = [facility] [id number]] Future Scheduled 1975 Urine screening for [facility] 00:00:00 protein (procedure) [code [facility] = [id number]] Future Scheduled 1975 DIABETIC EYE EXAM [code = [facility] 00:00:00 DIABETIC EYE EXAM] Medical [facility] enter Future Scheduled 1975 Diabetic foot examination [facility] 00:00:00 (regime/therapy) [code = [facility] [id number]] Future Scheduled 1975 Urine screening for [facility] 00:00:00 protein (procedure) [code [facility] = [id number]] Future Scheduled 1975 DIABETIC EYE EXAM [code = [facility] 00:00:00 DIABETIC EYE EXAM] Medical C enter Future Scheduled 1975 Diabetic foot examination [facility] 00:00:00 (regime/therapy) [code = [facility] [id number]] Future Scheduled 1975 Urine screening for [facility] 00:00:00 protein (procedure) [code [facility] = [id number]] Future Scheduled 1975 DIABETIC EYE EXAM [code = [facility] 00:00:00 DIABETIC EYE EXAM] Medical [facility] enter Future Scheduled 1975 Diabetic foot examination [facility] 00:00:00 (regime/therapy) [code = [facility] [id number]] Future Scheduled 1975 Urine screening for [facility] 00:00:00 protein (procedure) [code [facility] = [id number]] Future Scheduled 1975 DIABETIC EYE EXAM [code = [facility] 00:00:00 DIABETIC EYE EXAM] Medical C enter Future Scheduled 1975 Diabetic foot examination [facility] 00:00:00 (regime/therapy) [code = [facility] [id number]] Future Scheduled 1975 Urine screening for [facility] 00:00:00 protein (procedure) [code [facility] = [id number]] Future Scheduled 1975 DIABETIC EYE EXAM [code = [facility] 00:00:00 DIABETIC EYE EXAM] Medical C enter Future Scheduled 1975 Diabetic foot examination [facility] 00:00:00 (regime/therapy) [code = [facility] [id number]] Future Scheduled 1975 Urine screening for [facility] 00:00:00 protein (procedure) [code [facility] = [id number]] Future Scheduled 1975 DIABETIC EYE EXAM [code = [facility] 00:00:00 DIABETIC EYE EXAM] Medical C enter Future Scheduled 1975 Diabetic foot examination [facility] 00:00:00 (regime/therapy) [code = [facility] [id number]] Future Scheduled 1975 Urine screening for [facility] 00:00:00 protein (procedure) [code [facility] = [id number]] Future Scheduled 1975 DIABETIC EYE EXAM [code = [facility] 00:00:00 DIABETIC EYE EXAM] Medical C enter Future Scheduled 1975 DIABETIC EYE EXAM [code = [facility] 00:00:00 DIABETIC EYE EXAM] Medical C enter Future Scheduled 1975 Diabetic foot examination [facility] 00:00:00 (regime/therapy) [facility] [id number]] Future Scheduled 1975 Urine screening for [facility] 00:00:00 protein (procedure) [code [facility] = [id number]] Future Scheduled 1975 Diabetic foot examination [facility] 00:00:00 (regime/therapy) [code [facility] [id number]] Future Scheduled 1975 Urine screening for [facility] 00:00:00 protein (procedure) [code [facility] = [id number]] Future Scheduled 1975 DIABETIC EYE EXAM [code = [facility] 00:00:00 DIABETIC EYE EXAM] Medical C enter Future Scheduled 1975 Diabetic foot examination [facility] 00:00:00 (regime/therapy) [facility] [id number]] Future Scheduled 1975 Urine screening for [facility] 00:00:00 protein (procedure) [code [facility] = [id number]] Future Scheduled 1975 DIABETIC EYE EXAM [code = [facility] 00:00:00 DIABETIC EYE EXAM] Medical C enter Future Scheduled 1975 Diabetic foot examination [facility] 00:00:00 (regime/therapy) [code = [facility] [id number]] Future Scheduled 1975 Urine screening for [facility] 00:00:00 protein (procedure) [code [facility] = [id number]] Future Scheduled 1975 DIABETIC EYE EXAM [code = [facility] 00:00:00 DIABETIC EYE EXAM] Medical C enter Future Scheduled 1975 Diabetic foot examination [facility] 00:00:00 (regime/therapy) [code = [facility] [id number]] Future Scheduled 1975 Urine screening for [facility] 00:00:00 protein (procedure) [code [facility] = 244349658] Future Scheduled 1975 DIABETIC EYE EXAM [code = [facility] 00:00:00 DIABETIC EYE EXAM] Medical C enter Future Scheduled 1975 Diabetic foot examination [facility] 00:00:00 (regime/therapy) [code [facility] [id number]] Future Scheduled 1975 Urine screening for [facility] 00:00:00 protein (procedure) [code [facility] = [id number]] Future Scheduled 1975 DIABETIC EYE EXAM [code = [facility] 00:00:00 DIABETIC EYE EXAM] Medical C enter Future Scheduled 1975 Diabetic foot examination [facility] 00:00:00 (regime/therapy) [facility] [id number]] Future Scheduled 1975 Urine screening for [facility] 00:00:00 protein (procedure) [code [facility] = 444489208] Future Scheduled 1975 DIABETIC EYE EXAM [code = [facility] 00:00:00 DIABETIC EYE EXAM] Medical C enter Future Scheduled 1975 Diabetic foot examination [facility] 00:00:00 (regime/therapy) [code = [facility] [id number]] Future Scheduled 1975 Urine screening for [facility] 00:00:00 protein (procedure) [code [facility] = [id number]] Future Scheduled 1975 DIABETIC EYE EXAM [code = [facility] 00:00:00 DIABETIC EYE EXAM] Medical C enter Future Scheduled 1975 Diabetic foot examination [facility] 00:00:00 (regime/therapy) [code = [facility] [id number]] Future Scheduled 1975 Urine screening for [facility] 00:00:00 protein (procedure) [code [facility] = [id number]] Future Scheduled 1975 DIABETIC EYE EXAM [code = [facility] 00:00:00 DIABETIC EYE EXAM] Medical C enter Future Scheduled 1975 Diabetic foot examination [facility] 00:00:00 (regime/therapy) [code = [facility] 240694768] Future Scheduled 1975 Urine screening for [facility] 00:00:00 protein (procedure) [code [facility] = [id number]] Future Scheduled 1975 DIABETIC EYE EXAM [code = [facility] 00:00:00 DIABETIC EYE EXAM] Medical C enter Future Scheduled 1975 Diabetic foot examination [facility] 00:00:00 (regime/therapy) [code = [facility] [id number]] Future Scheduled 1975 Urine screening for [facility] 00:00:00 protein (procedure) [code [facility] = 756162370] Future Scheduled 1975 DIABETIC EYE EXAM [code = [facility] 00:00:00 DIABETIC EYE EXAM] Medical C enter Future Scheduled 1975 Diabetic foot examination [facility] 00:00:00 (regime/therapy) [code = [facility] [id number]] Future Scheduled 1975 Urine screening for [facility] 00:00:00 protein (procedure) [code [facility] = [id number]] Future Scheduled 1975 DIABETIC EYE EXAM [code = [facility] 00:00:00 DIABETIC EYE EXAM] Medical C enter Future Scheduled 1975 Diabetic foot examination [facility] 00:00:00 (regime/therapy) [code = [facility] [id number]] Future Scheduled 1975 Urine screening for [facility] 00:00:00 protein (procedure) [code [facility] = [id number]] Future Scheduled 1975 DIABETIC EYE EXAM [code = [facility] 00:00:00 DIABETIC EYE EXAM] Medical C enter Future Scheduled 1975 Diabetic foot examination [facility] 00:00:00 (regime/therapy) [code = [facility] [id number]] Future Scheduled 1975 Urine screening for [facility] 00:00:00 protein (procedure) [code [facility] = [id number]] Future Scheduled 1975 DIABETIC EYE EXAM [code = [facility] 00:00:00 DIABETIC EYE EXAM] Medical C enter Future Scheduled 1975 Diabetic foot examination [facility] 00:00:00 (regime/therapy) [code = [facility] [id number]] Future Scheduled 1975 Urine screening for [facility] 00:00:00 protein (procedure) [code [facility] = [id number]] Future Scheduled 1975 DIABETIC EYE EXAM [code = [facility] 00:00:00 DIABETIC EYE EXAM] Medical C enter Future Scheduled 1975 Diabetic foot examination [facility] 00:00:00 (regime/therapy) [code = [facility] [id number]] Future Scheduled 1975 Urine screening for [facility] 00:00:00 protein (procedure) [code [facility] = [id number]] Future Scheduled 1975 DIABETIC EYE EXAM [code = [facility] 00:00:00 DIABETIC EYE EXAM] Medical C enter Future Scheduled 1975 Diabetic foot examination [facility] 00:00:00 (regime/therapy) [code = [facility] [id number]] Future Scheduled 1975 Urine screening for [facility] 00:00:00 protein (procedure) [code [facility] = [id number]] Future Scheduled 1975 DIABETIC EYE EXAM [code = [facility] 00:00:00 DIABETIC EYE EXAM] Medical C enter Future Scheduled 1975 Diabetic foot examination [facility] 00:00:00 (regime/therapy) [code = [facility] [id number]] Future Scheduled [address]rine screening [facility] 00:00:00 protein (procedure) [code [facility] = [id number]] Future Scheduled 1975 DIABETIC EYE EXAM [code = [facility] 00:00:00 DIABETIC EYE EXAM] Medical C enter Future Scheduled 1975 [address]abetic foot [address] [facility] 00:00:00 (regime/therapy) [code = [facility] [id number]] Future Scheduled 1975 Urine screening for [facility] 00:00:00 protein (procedure) [code [facility] = [id number]] Future Scheduled 1975 DIABETIC EYE EXAM [code = [facility] 00:00:00 DIABETIC EYE EXAM] Medical C enter Future Scheduled 1975 Diabetic foot examination [facility] 00:00:00 (regime/therapy) [code = [facility] [id number]] Future Scheduled 1975 Urine screening for [facility] 00:00:00 protein (procedure) [code [facility] = [id number]] Future Scheduled 1975 DIABETIC EYE EXAM [code = [facility] 00:00:00 DIABETIC EYE EXAM] Medical C enter Future Scheduled 1975 Diabetic foot examination [facility] 00:00:00 (regime/therapy) [code = [facility] [id number]] Future Scheduled 1975 Urine screening for [facility] 00:00:00 protein (procedure) [code [facility] = [id number]] Future Scheduled 1975 DIABETIC EYE EXAM [code = [facility] 00:00:00 DIABETIC EYE EXAM] Medical C enter Future Scheduled 1975 Diabetic foot examination [facility] 00:00:00 (regime/therapy) [code [facility] [id number]] Future Scheduled 1975 Urine screening for [facility] 00:00:00 protein (procedure) [code [facility] = [id number]] Future Scheduled 1965 COVID-19 VACCINE (#1) [facility] (#1)] Future Scheduled 1965 CT Colonography (combo) [facility] 00:00:00 [code = CT [facility]ography [facility] ([facility])] Future Scheduled 1965 Screening for malignant [facility] 00:00:00 neoplasm of colon [facility] (procedure) [code = [id number]] Future Scheduled 1965 Screening for malignant [facility] 00:00:00 neoplasm of colon [facility] (procedure) [code = 280753499] Future Scheduled 1965 Screening for malignant [facility] 00:00:00 neoplasm of colon [facility] (procedure) [code = 403398283] Future Scheduled 1965 Screening for malignant [facility] 00:00:00 neoplasm of colon [facility] (procedure) [code = 111012117] Future Scheduled 1965 Sigmoidoscopy [code = [facility] S[facility]oidoscopy] [facility] Future Scheduled 1965 CT Colonography (combo) [facility] 00:00:00 [code = CT [facility] ([facility])] Future Scheduled 1965 Screening for malignant [facility] 00:00:00 neoplasm of colon [facility] (procedure) [code = 814075715] Future Scheduled 1965 Screening for malignant [facility] 00:00:00 neoplasm of colon [facility] (procedure) [code = 734524640] Future Scheduled 1965 Screening for malignant [facility] 00:00:00 neoplasm of colon [facility] (procedure) [code = 724949999] Future Scheduled 1965 Screening for malignant [facility] 00:00:00 neoplasm of colon [facility] (procedure) [code = 294773544] Future Scheduled 1965 Sigmoidoscopy [code = [facility] 00:[facility] S[facility]oidoscopy] [facility] Future Scheduled 1965 CT Colonography (combo) [facility] 00:00:00 [code = CT [facility] ([facility])] Future Scheduled 1965 Screening for malignant [facility] 00:00:00 neoplasm of colon [facility] (procedure) [code = 902565956] Future Scheduled 1965 Screening for malignant [facility] 00:00:00 neoplasm of colon [facility] (procedure) [code = 182815891] Future Scheduled 1965 Screening for malignant [facility] 00:00:00 neoplasm of colon [facility] (procedure) [code = 105056062] Future Scheduled 1965 Screening for malignant [facility] 00:00:00 neoplasm of colon [facility] (procedure) [code = 686205600] Future Scheduled 1965 Sigmoidoscopy [code = [facility] 00:[facility] S[facility]oidoscopy] [facility] Future Scheduled 1965 CT Colonography (combo) [facility] 00:00:00 [code = CT Colonography [facility] (combo)] Future Scheduled 1965 Screening for malignant [facility] 00:00:00 neoplasm of colon [facility] (procedure) [code = 127316901] Future Scheduled 1965 Screening for malignant [facility] 00:00:00 neoplasm of colon [facility] (procedure) [code = 041180720] Future Scheduled 1965 Screening for malignant [facility] 00:00:00 neoplasm of colon [facility] (procedure) [code = 626160357] Future Scheduled 1965 Screening for malignant [facility] 00:00:00 neoplasm of colon [facility] (procedure) [code = 132335384] Future Scheduled 1965 Sigmoidoscopy [code = [facility] 00:[facility] S[facility]oidoscopy] [facility] Future Scheduled 1965 CT Colonography (combo) [facility] 00:00:00 [code = CT Colonography [facility] (combo)] Future Scheduled 1965 Screening for malignant [facility] 00:00:00 neoplasm of colon [facility] (procedure) [code = 031252541] Future Scheduled 1965 Screening for malignant [facility] 00:00:00 neoplasm of colon Medical [facility] (procedure) [code = 248113387] Future Scheduled 1965 Screening for malignant [facility] 00:00:00 neoplasm of colon [facility] (procedure) [code = 732804385] Future Scheduled 1965 Screening for malignant [facility] 00:00:00 neoplasm of colon [facility] (procedure) [code = 208774937] Future Scheduled 1965 Sigmoidoscopy [code = [facility] 00:[facility] S[facility]oidoscopy] [facility] Future Scheduled 1965 CT Colonography (combo) [facility] 00:00:00 [code = CT [facility] ([facility])] Future Scheduled 1965 Screening for malignant [facility] 00:00:00 neoplasm of colon [facility] (procedure) [code = 646151787] Future Scheduled 1965 Screening for malignant [facility] 00:00:00 neoplasm of colon [facility] (procedure) [code = 571119882] Future Scheduled 1965 Screening for malignant [facility] 00:00:00 neoplasm of colon [facility] (procedure) [code = 816938305] Future Scheduled 1965 Screening for malignant [facility] 00:00:00 neoplasm of colon [facility] (procedure) [code = 054971709] Future Scheduled 1965 Sigmoidoscopy [code = [facility] 00:[facility] S[facility]oidoscopy] [facility] Future Scheduled 1965 CT Colonography (combo) [facility] 00:00:00 [code = CT Colonography [facility] (combo)] Future Scheduled 1965 Screening for malignant [facility] 00:00:00 neoplasm of colon Medical Ce [facility] (procedure) [code = 374857687] Future Scheduled 1965 Screening for malignant [facility] 00:00:00 neoplasm of colon [facility] (procedure) [code = 129776220] Future Scheduled 1965 Screening for malignant [facility] 00:00:00 neoplasm of colon [facility] Ce [facility] (procedure) [code = 232799821] Future Scheduled 1965 Screening for malignant [facility] 00:00:00 neoplasm of colon [facility] (procedure) [code = 067819959] Future Scheduled 1965 Sigmoidoscopy [code = [facility] 00:[facility] Sigmoidoscopy] [facility] Future Scheduled 1965 CT Colonography (combo) [facility] 00:00:00 [code = CT [facility]ography [facility] ([facility])] Future Scheduled 1965 CT Colonography (combo) [facility] 00:00:00 [code = CT [facility] ([facility])] Future Scheduled 1965 Screening for malignant [facility] 00:00:00 neoplasm of colon Medical Ce [facility] (procedure) [code = 101891366] Future Scheduled 1965 Screening for malignant [facility] 00:00:00 neoplasm of colon Medical Ce [facility] (procedure) [code = 477336978] Future Scheduled 1965 Screening for malignant [facility] 00:00:00 neoplasm of colon Medical Ce [facility] (procedure) [code = 558236747] Future Scheduled 1965 Screening for malignant [facility] 00:00:00 neoplasm of colon Medical Ce [facility] (procedure) [code = 534315360] Future Scheduled 1965 Screening for malignant [facility] 00:00:00 neoplasm of colon Medical Ce [facility] (procedure) [code = 093979985] Future Scheduled 1965 Sigmoidoscopy [code = [facility] 00:[facility] S[facility]oidoscopy] [facility] Future Scheduled 1965 Screening for malignant [facility] 00:00:00 neoplasm of colon Medical Ce [facility] (procedure) [code = 315144680] Future Scheduled 1965 Screening for malignant [facility] 00:00:00 neoplasm of colon Medical Ce [facility] (procedure) [code = 011619649] Future Scheduled 1965 CT Colonography (combo) [facility] 00:00:00 [code = CT [facility] ([facility])] Future Scheduled 1965 Screening for malignant [facility] 00:00:00 neoplasm of colon Medical Ce [facility] (procedure) [code = 026215210] Future Scheduled 1965 Screening for malignant [facility] 00:00:00 neoplasm of colon Medical Ce [facility] (procedure) [code = 976781188] Future Scheduled 1965 Screening for malignant [facility] 00:00:00 neoplasm of colon Medical Ce [facility] (procedure) [code = 738959797] Future Scheduled 1965 Screening for malignant [facility] 00:00:00 neoplasm of colon Medical Ce [facility] (procedure) [code = 974043372] Future Scheduled 1965 Screening for malignant [facility] 00:00:00 neoplasm of colon Medical Ce [facility] (procedure) [code = 675119061] Future Scheduled 1965 Sigmoidoscopy [code = [facility] [...] colon [facility] Ce [facility]ter (procedure) [code = 937774220] Future Scheduled 1965 Screening for malignant [facility] 00:00:00 neoplasm of colon Medical Ce [facility] (procedure) [code = 472918687] Future Scheduled 1965 Screening for malignant [facility] 00:00:00 neoplasm of colon Medical Ce [facility] (procedure) [code = 297246634] Future Scheduled 1965 Screening for malignant [facility] 00:00:00 neoplasm of colon Medical Ce [facility] (procedure) [code = 665989534] Future Scheduled 1965 Sigmoidoscopy [code = [facility] S[facility]] [facility] Future Scheduled 1965 CT Colonography (combo) [facility] 00:00:00 [code = CT [facility] ([facility])] Future Scheduled 1965 Screening for malignant [facility] 00:00:00 neoplasm of colon Medical Ce [facility] (procedure) [code = 870874589] Future Scheduled 1965 Screening for malignant [facility] 00:00:00 neoplasm of colon Medical Ce [facility] (procedure) [code = 877626282] Future Scheduled 1965 Screening for malignant [facility] 00:00:00 neoplasm of colon Medical Ce [facility] (procedure) [code = 262630708] Future Scheduled 1965 Screening for malignant [facility] 00:00:00 neoplasm of colon Medical Ce [facility] (procedure) [code = 950904219] Future Scheduled 1965 Sigmoidoscopy [code = [facility] S[facility]] [facility] Future Scheduled 1965 CT Colonography (combo) [facility] 00:00:00 [code = CT Colonography [facility] (combo)] Future Scheduled 1965 Screening for malignant [facility] 00:00:00 neoplasm of colon Medical Ce [facility] (procedure) [code = 565911842] Future Scheduled 1965 Screening for malignant [facility] 00:00:00 neoplasm of colon Medical Ce [facility] (procedure) [code = 486752267] Future Scheduled 1965 Screening for malignant [facility] 00:00:00 neoplasm of colon Medical Ce [facility]ter (procedure) [code = 281156726] Future Scheduled 1965 Screening for malignant [facility] 00:00:00 neoplasm of colon Medical Ce [facility] (procedure) [code = 801029970] Future Scheduled 1965 Sigmoidoscopy [code = [facility] S[facility]oscopy] [facility] Future Scheduled 1965 CT Colonography (combo) [facility] 00:00:00 [code = CT Colonography [facility] (combo)] Future Scheduled 1965 Screening for malignant [facility] 00:00:00 neoplasm of colon Medical Ce [facility]ter (procedure) [code = 686241024] Future Scheduled 1965 Screening for malignant [facility] 00:00:00 neoplasm of colon Medical Ce [facility]ter (procedure) [code = 796525246] Future Scheduled 1965 Screening for malignant [facility] 00:00:00 neoplasm of colon Medical Ce [facility] (procedure) [code = 001929954] Future Scheduled 1965 Screening for malignant [facility] 00:00:00 neoplasm of colon Medical Ce [facility] (procedure) [code = 516577257] Future Scheduled 1965 Sigmoidoscopy [code = [facility] S[facility]oidoscopy] Medical [facility] Future Scheduled 1965 CT Colonography (combo) [facility] 00:00:00 [code = CT [facility] ([facility])] Future Scheduled 1965 Screening for malignant [facility] 00:00:00 neoplasm of colon Medical Ce [facility]ter (procedure) [code = 004924278] Future Scheduled 1965 Screening for malignant [facility] 00:00:00 neoplasm of colon Medical Ce [facility]ter (procedure) [code = 977093017] Future Scheduled 1965 Screening for malignant [facility] 00:00:00 neoplasm of colon Medical Ce [facility] (procedure) [code = 321730254] Future Scheduled 1965 Screening for malignant [facility] 00:00:00 neoplasm of colon Medical Ce [facility]ter (procedure) [code = 353632286] Future Scheduled 1965 Sigmoidoscopy [code = [facility] S[facility]oscopy] Medical [facility] Future Scheduled 1965 CT Colonography (combo) [facility] 00:00:00 [code = CT Colonography [facility] (combo)] Future Scheduled 1965 Screening for malignant [facility] 00:00:00 neoplasm of colon Medical Ce [facility] (procedure) [code = 689560750] Future Scheduled 1965 Screening for malignant [facility] 00:00:00 neoplasm of colon Medical Ce [facility] (procedure) [code = 156502403] Future Scheduled 1965 Screening for malignant [facility] 00:00:00 neoplasm of colon Medical Ce [facility]ter (procedure) [code = 793754251] Future Scheduled 1965 Screening for malignant [facility] 00:00:00 neoplasm of colon Medical Ce [facility]ter (procedure) [code = 748026446] Future Scheduled 1965 Sigmoidoscopy [code = [facility] S[facility]oscopy] Medical [facility] Future Scheduled 1965 CT Colonography (combo) [facility] 00:00:00 [code = CT Colonography [facility] (combo)] Future Scheduled 1965 Screening for malignant [facility] 00:00:00 neoplasm of colon Medical Ce [facility]ter (procedure) [code = 963987696] Future Scheduled 1965 Screening for malignant [facility] 00:00:00 neoplasm of colon Medical Ce [facility]ter (procedure) [code = 158539367] Future Scheduled 1965 Screening for malignant [facility] 00:00:00 neoplasm of colon Medical Ce [facility]ter (procedure) [code = 109144959] Future Scheduled 1965 Screening for malignant [facility] 00:00:00 neoplasm of colon Medical Ce [facility]ter (procedure) [code = 262502834] Future Scheduled 1965 Sigmoidoscopy [code = [facility]] [facility] Future Scheduled 1965 CT Colonography (combo) [facility] 00:00:00 [code = CT [facility] ([facility])] Future Scheduled 1965 Screening for malignant [facility] 00:00:00 neoplasm of colon Medical Ce [facility]ter (procedure) [code = 303430355] Future Scheduled 1965 Screening for malignant [facility] 00:00:00 neoplasm of colon Medical Ce [facility]ter (procedure) [code = 207942986] Future Scheduled 1965 Screening for malignant [facility] 00:00:00 neoplasm of colon Medical Ce [facility] (procedure) [code = 991896851] Future Scheduled 1965 Screening for malignant [facility] 00:00:00 neoplasm of colon Medical Ce [facility]ter (procedure) [code = 823266469] Future Scheduled 1965 Sigmoidoscopy [code = [facility] [...] colon Medical Ce [facility]ter (procedure) [code = 900465712] Future Scheduled 1965 Screening for malignant [facility] 00:00:00 neoplasm of colon Medical Ce [facility]ter (procedure) [code = 471141828] Future Scheduled 1965 Screening for malignant [facility] 00:00:00 neoplasm of colon Medical Ce [facility]ter (procedure) [code = 770891127] Future Scheduled 1965 Screening for malignant [facility] 00:00:00 neoplasm of colon Medical Ce [facility]ter (procedure) [code = 043063439] Future Scheduled 1965 Sigmoidoscopy [code = [facility]] [facility] Future Scheduled 1965 Screening for malignant [facility] 00:00:00 neoplasm of colon Medical Ce [facility] (procedure) [code = 655404871] Future Scheduled 1965 Screening for malignant [facility] 00:00:00 neoplasm of colon Medical Ce [facility] (procedure) [code = 954147322] Future Scheduled 1965 Screening for malignant [facility] 00:00:00 neoplasm of colon Medical Ce [facility]ter (procedure) [code = 961187943] Future Scheduled 1965 CT Colonography (combo) [facility] 00:00:00 [code = CT Colonography [facility] (combo)] Future Scheduled 1965 Screening for malignant [facility] 00:00:00 neoplasm of colon Medical Ce [facility]ter (procedure) [code = 227923491] Future Scheduled 1965 Screening for malignant [facility] 00:00:00 neoplasm of colon Medical Ce [facility]ter (procedure) [code = 562787191] Future Scheduled 1965 Screening for malignant [facility] 00:00:00 neoplasm of colon Medical Ce [facility]ter (procedure) [code = 313153541] Future Scheduled 1965 Screening for malignant [facility] 00:00:00 neoplasm of colon Medical Ce [facility]ter (procedure) [code = 397086533] Future Scheduled 1965 Sigmoidoscopy [code [facility]] [facility] Future Scheduled 1965 Screening for malignant [facility] 00:00:00 neoplasm of colon Medical Ce [facility] (procedure) [code = 016659677] Future Scheduled 1965 Sigmoidoscopy [code = [facility] S[facility]] [facility] Future Scheduled 1965 CT Colonography (combo) [facility] 00:00:00 [code = CT [facility] ([facility])] Future Scheduled 1965 Screening for malignant [facility] 00:00:00 neoplasm of colon Medical Ce [facility]ter (procedure) [code = 033907630] Future Scheduled 1965 Screening for malignant [facility] 00:00:00 neoplasm of colon Medical Ce [facility]ter (procedure) [code = 708191613] Future Scheduled 1965 Screening for malignant [facility] 00:00:00 neoplasm of colon Medical Ce [facility] (procedure) [code = 657501698] Future Scheduled 1965 Screening for malignant [facility] 00:00:00 neoplasm of colon Medical Ce [facility] (procedure) [code = 491908607] Future Scheduled 1965 Sigmoidoscopy [code = [facility]] [facility] Future Scheduled 1965 CT Colonography (combo) [facility] 00:00:00 [code = CT Colonography [facility] (combo)] Future Scheduled 1965 Screening for malignant [facility] 00:00:00 neoplasm of colon Medical Ce [facility] (procedure) [code = 139260422] Future Scheduled 1965 Screening for malignant [facility] 00:00:00 neoplasm of colon Medical Ce [facility]ter (procedure) [code = 381699700] Future Scheduled 1965 Screening for malignant [facility] 00:00:00 neoplasm of colon Medical Ce [facility]ter (procedure) [code = 976708613] Future Scheduled 1965 Screening for malignant [facility] 00:00:00 neoplasm of colon Medical Ce [facility] (procedure) [code = 151433466] Future Scheduled 1965 Sigmoidoscopy [code [facility]] [facility] Future Scheduled 1965 CT Colonography (combo) [facility] 00:00:00 [code = CT [facility] ([facility])] Future Scheduled 1965 Screening for malignant [facility] 00:00:00 neoplasm of colon Medical Ce [facility] (procedure) [code = 282990322] Future Scheduled 1965 Screening for malignant [facility] 00:00:00 neoplasm of colon Medical Ce [facility] (procedure) [code = 678851772] Future Scheduled 1965 Screening for malignant [facility] 00:00:00 neoplasm of colon Medical Ce [facility]ter (procedure) [code = 451753271] Future Scheduled 1965 Screening for malignant [facility] 00:00:00 neoplasm of colon Medical Ce [facility] (procedure) [code = 783902955] Future Scheduled 1965 Sigmoidoscopy [code [facility]] [facility] Future Scheduled 1965 CT Colonography (combo) [facility] 00:00:00 [code = CT [facility] ([facility])] Future Scheduled 1965 Screening for malignant [facility] 00:00:00 neoplasm of colon Medical Ce [facility] (procedure) [code = 658254651] Future Scheduled 1965 Screening for malignant [facility] 00:00:00 neoplasm of colon Medical Ce [facility] (procedure) [code = 091262759] Future Scheduled 1965 Screening for malignant [facility] 00:00:00 neoplasm of colon Medical Ce [facility] (procedure) [code = 652063394] Future Scheduled 1965 Screening for malignant [facility] 00:00:00 neoplasm of colon Medical Ce [facility] (procedure) [code = 584696075] Future Scheduled 1965 Sigmoidoscopy [[facility]] [facility] Future Scheduled 1965 CT Colonography (combo) [facility] 00:00:00 [code = CT [facility] ([facility])] Future Scheduled 1965 Screening for malignant [facility] 00:00:00 neoplasm of colon Medical Ce [facility] (procedure) [code = 903684787] Future Scheduled 1965 Screening for malignant [facility] 00:00:00 neoplasm of colon Medical Ce [facility]ter (procedure) [code = 804886714] Future Scheduled 1965 Screening for malignant [facility] 00:00:00 neoplasm of colon Medical Ce [facility] (procedure) [code = 290119254] Future Scheduled 1965 Screening for malignant [facility] 00:00:00 neoplasm of colon Medical Ce [facility] (procedure) [code = 471468877] Future Scheduled 1965 Sigmoidoscopy [code [facility]] [facility] Future Scheduled 1965 CT Colonography (combo) [facility] 00:00:00 [code = CT [facility] ([facility])] Future Scheduled 1965 Screening for malignant [facility] 00:00:00 neoplasm of colon Medical Ce [facility] (procedure) [code = 926424756] Future Scheduled 1965 Screening for malignant [facility] 00:00:00 neoplasm of colon Medical Ce [facility]ter (procedure) [code = 599906035] Future Scheduled 1965 Screening for malignant [facility] 00:00:00 neoplasm of colon Medical Ce [facility] (procedure) [code = 261418380] Future Scheduled 1965 Screening for malignant [facility] 00:00:00 neoplasm of colon Medical Ce [facility] (procedure) [code = 852996741] Future Scheduled 1965 Sigmoidoscopy [code [facility]] [facility] Future Scheduled 1965 CT Colonography (combo) [facility] 00:00:00 [code = CT [facility] ([facility])] Future Scheduled 1965 Screening for malignant [facility] 00:00:00 neoplasm of colon Medical Ce [facility] (procedure) [code = 268683705] Future Scheduled 1965 Screening for malignant [facility] 00:00:00 neoplasm of colon Medical Ce [facility] (procedure) [code = 784954870] Future Scheduled 1965 Screening for malignant [facility] 00:00:00 neoplasm of colon Medical Ce [facility] (procedure) [code = 094840022] Future Scheduled 1965 Screening for malignant [facility] 00:00:00 neoplasm of colon Medical [facility] (procedure) [code = 213300690] Future Scheduled 1965 Sigmoidoscopy [code [facility]] [facility] Future Scheduled 1965 CT Colonography (combo) [facility] 00:00:00 [code = [facility] ([facility])] Future Scheduled 1965 Screening for malignant [facility] 00:00:00 neoplasm of colon [facility] (procedure) [code = 831929741] Future Scheduled 1965 Screening for malignant [facility] 00:00:00 neoplasm of colon Medical Ce [facility] (procedure) [code = 135267988] Future Scheduled 1965 Screening for malignant [facility] 00:00:00 neoplasm of colon Medical Ce [facility] (procedure) [code = 535496710] Future Scheduled 1965 Screening for malignant [facility] 00:00:00 neoplasm of colon Medical Ce [facility] (procedure) [code = 978317936] Future Scheduled 1965 Sigmoidoscopy [code [facility]] [facility] Future Scheduled 1965 CT Colonography (combo) [facility] 00:00:00 [code = [facility] ([facility])] Future Scheduled 1965 Screening for malignant [facility] 00:00:00 neoplasm of colon Medical Ce [facility]ter (procedure) [code = [id number]] Future Scheduled 1965 CT Colonography (combo) [facility] Test 00:00:00 [code = CT [facility] ([facility] Future Scheduled 1965 Screening for malignant [facility] 00:00:00 neoplasm of colon [facility] (procedure) [code = [id number]] Future Scheduled 1965 Screening for malignant [facility] 00:00:00 neoplasm of colon [facility] (procedure) [code = 160642726] Future Scheduled 1965 Screening for malignant [facility] 00:00:00 neoplasm of colon [facility] (procedure) [code = 727615434] Future Scheduled 1965 Screening for malignant [facility] 00:00:00 neoplasm of colon [facility] (procedure) [code = 425124576] Future Scheduled 1965 Sigmoidoscopy [facility]code = [facility] Future Scheduled 1965 Screening for malignant [facility] 00:00:00 neoplasm of colon [facility] (procedure) [code = 058658029] Future Scheduled 1965 Screening for malignant [facility] 00:00:00 neoplasm of colon [facility] (procedure) [code = 605174795] Future Scheduled 1965 Screening for malignant [facility] 00:00:00 neoplasm of colon [facility] (procedure) [code = 318041383] Future Scheduled 1965 Sigmoidoscopy [code = [facility] S[facility]] [facility] Cent[facility] Goal Plan of Care Note [code = 76713-2] Goal Plan of Care Note [code = 77291-5] Goal Plan of Care Note [code = 34944-7] Goal Plan of Care Note [code = 59155-0] Goal Plan of Care Note [code = 52950-1] Goal Plan of Care Note [code = 74092-2] Goal Plan of Care Note [code = 60970-0] Goal Plan of Care Note [code = 74914-5] Goal Plan of Care Note [code = 23663-7] Goal Plan of Care Note [code = 06853-0] Goal Plan of Care Note [code = 07116-1] Goal Plan of Care Note [code = 87408-6] Goal Plan of Care Note [code = 39258-6] Goal Plan of Care Note [code = 77813-3] Goal Plan of Care Note [code = 24298-3] Goal Plan of Care Note [code = 88880-6] Goal Plan of Care Note [code = 84881-1] Goal Plan of Care Note [code = 39341-0] Goal Plan of Care Note [code = 52214-6] Goal Plan of Care Note [code = 72567-5] Goal Plan of Care Note [code = 04738-4] Goal Plan of Care Note [code = 77140-7] Goal Plan of Care Note [code = 79595-0] Goal Plan of Care Note [code = 97765-8] Goal Plan of Care Note [code = 54577-6] Goal Plan of Care Note [code = 88572-2] Goal Plan of Care Note [code = 23231-8] Goal Plan of Care Note [code = 89319-5] Goal Plan of Care Note [code = 59754-1] Goal Plan of Care Note [code = 28512-0] Goal Plan of Care Note [code = 81718-4] Goal Plan of Care Note [code = 31047-0] Goal Plan of Care Note [code = 49778-8] Goal Plan of Care Note [code = 94762-9] Goal Plan of Care Note [code = 94028-5] Goal Plan of Care Note [code = 73337-8] Goal Plan of Care Note [code = 20614-7] Goal Plan of Care Note [code = 54008-2] Goal Plan of Care Note [code = 59666-8] Goal Plan of Care Note [code = 97709-5] Goal Plan of Care Note [code = 49118-0] Goal Plan of Care Note [code = 41776-3] Goal Plan of Care Note [code = 66723-5] Goal Plan of Care Note [code = 92892-6] Goal Plan of Care Note [code = 11588-4] Goal Plan of Care Note [code = 91311-3] Goal Plan of Care Note [code = 69591-1] Goal Plan of Care Note [code = 98290-8] Goal Plan of Care Note [code = 78163-1] Goal Plan of Care Note [code = 51218-4] Goal Plan of Care Note [code = 35802-7] Goal Plan of Care Note [code = 71808-7] Goal Plan of Care Note [code = 75067-4] Goal Plan of Care Note [code = 09198-1] Goal Plan of Care Note [code = 33154-3] Goal Plan of Care Note [code = 14203-3] Goal Plan of Care Note [code = 58809-1] Goal Plan of Care Note [code = 80920-5] Goal Plan of Care Note [code = 23412-4] Goal Plan of Care Note [code = 32315-1] Goal Plan of Care Note [code = 61148-0] Goal Plan of Care Note [code = 22220-5] Goal Plan of Care Note [code = 26121-2] Goal Plan of Care Note [code = 75517-3] Goal Plan of Care Note [code = 35600-3] Goal Plan of Care Note [code = 63222-2] Goal Plan of Care Note [code = 09228-8] Goal Plan of Care Note [code = 28875-9] Goal Plan of Care Note [code = 73397-1] Goal Plan of Care Note [code = 77047-7] Goal Plan of Care Note [code = 35686-9] Goal Plan of Care Note [code = 83153-1] Goal Plan of Care Note [code = 15936-1] Goal Plan of Care Note [code = 74519-2] Goal Plan of Care Note [code = 83464-8] Goal Plan of Care Note [code = 04535-6] Goal Plan of Care Note [code = 74664-7] Goal Plan of Care Note [code = 40000-0] Goal Plan of Care Note [code = 01093-7] Goal Plan of Care Note [code = 00075-6] Goal Plan of Care Note [code = 83528-6] Goal Plan of Care Note [code = 89143-8] Goal Plan of Care Note [code = 95617-2] Goal Plan of Care Note [code = 58482-1] Goal Plan of Care Note [code = 39559-1] Goal Plan of Care Note [code = 23092-5] Goal Plan of Care Note [code = 10847-9] Goal Plan of Care Note [code = 78665-9] Goal Plan of Care Note [code = 08202-5] Goal Plan of Care Note [code = 86921-7] Goal Plan of Care Note [code = 32447-1] Goal Plan of Care Note [code = 89002-5] Goal Plan of Care Note [code = 07711-4] Goal Plan of Care Note [code = 76353-4] Goal Plan of Care Note [code = 31372-4] Goal Plan of Care Note [code = 79124-7] Goal Plan of Care Note [code = 46137-9] Goal Plan of Care Note [code = 60775-6] Goal Plan of Care Note [code = 14307-0] Goal Plan of Care Note [code = 42169-9] Goal Plan of Care Note [code = 44756-7] Goal Plan of Care Note [code = 97907-6] Goal Plan of Care Note [code = 74708-6] Goal Plan of Care Note [code = 36706-9] Goal Plan of Care Note [code = 09618-2] Goal Plan of Care Note [code = 90890-0] Goal Plan of Care Note [code = 13622-4] Goal Plan of Care Note [code = 80770-8] Goal Plan of Care Note [code = 68555-1] Goal Plan of Care Note [code = 68780-6] Goal Plan of Care Note [code = 04103-7] Goal Plan of Care Note [code = 98633-2] Goal Plan of Care Note [code = 50212-0] Goal Plan of Care Note [code = 32772-3] Goal Plan of Care Note [code = 47995-9] Goal Plan of Care Note [code = 47689-1] Goal Plan of Care Note [code = 14750-9] Goal Plan of Care Note [code = 85776-6] Goal Plan of Care Note [code = 20773-5] Goal Plan of Care Note [code = 73982-3] Goal Plan of Care Note [code = 16304-7] Goal Plan of Care Note [code = 53637-3] Goal Plan of Care Note [code = 70131-6] Goal Plan of Care Note [code = 92284-7] Goal Plan of Care Note [code = 35032-3] Goal Plan of Care Note [code = 70879-1] Goal Plan of Care Note [code = 89341-3] Goal Plan of Care Note [code = 33768-6] Goal Plan of Care Note [code = 86562-6] Goal Plan of Care Note [code = 21571-6] Goal Plan of Care Note [code = 95529-3] Goal Plan of Care Note [code = 03671-8] Goal Plan of Care Note [code = 51528-6] Goal Plan of Care Note [code = 84763-2] Goal Plan of Care Note [code = 84483-8] Goal Plan of Care Note [code = 47366-4] Goal Plan of Care Note [code = 25870-7] Goal Plan of Care Note [code = 93338-9] Goal Plan of Care Note [code = 68204-6] Goal Plan of Care Note [code = 47785-9] Goal Plan of Care Note [code = 83470-6] Goal Plan of Care Note [code = 69302-3] Goal Plan of Care Note [code = 72105-8] Goal Plan of Care Note [code = 86903-8] Goal Plan of Care Note [code = 39186-1] Goal Plan of Care Note [code = 43905-0] Goal Plan of Care Note [code = 80057-3] Goal Plan of Care Note [code = 77870-9] Goal Plan of Care Note [code = 60652-8] Goal Plan of Care Note [code = 88372-3] Goal Plan of Care Note [code = 30972-1] Goal Plan of Care Note [code = 61829-8] Goal Plan of Care Note [code = 77053-9] Goal Plan of Care Note [code = 55214-8] Goal Plan of Care Note [code = 98092-1] Goal Plan of Care Note [code = 65398-7] Goal Plan of Care Note [code = 87214-5] Goal Plan of Care Note [code = 37138-9] Goal Plan of Care Note [code = 89089-1] Goal Plan of Care Note [code = 21277-0] Goal Plan of Care Note [code = 10994-8] Goal Plan of Care Note [code = 05095-8] Goal Plan of Care Note [code = 99745-2] Goal Plan of Care Note [code = 24102-8] Goal Plan of Care Note [code = 25861-5] Goal Plan of Care Note [code = 10702-5] Goal Plan of Care Note [code = 91310-0] Goal Plan of Care Note [code = 52845-8] Goal Plan of Care Note [code = 47263-2] Goal Plan of Care Note [code = 42810-0] Goal Plan of Care Note [code = 43324-6] Goal Plan of Care Note [code = 45465-9] Goal Plan of Care Note [code = 79154-6] Goal Plan of Care Note [code = 27328-8] Goal Plan of Care Note [code = 63583-5] Goal Plan of Care Note [code = 62121-9] Goal Plan of Care Note [code = 45814-6] Goal Plan of Care Note [code = 82915-1] Goal Plan of Care Note [code = 63700-8] Goal Plan of Care Note [code = 88518-1] Goal Plan of Care Note [code = 64484-9] Goal Plan of Care Note [code = 52859-3] Goal Plan of Care Note [code = 84050-8] Goal Plan of Care Note [code = 46284-4] Goal Plan of Care Note [code = 81469-6] Goal Plan of Care Note [code = 68030-4] Goal Plan of Care Note [code = 22926-6] Goal Plan of Care Note [code = 34028-2] Goal Plan of Care Note [code = 81535-2] Goal Plan of Care Note [code = 69757-7] Goal Plan of Care Note [code = 77218-4] Goal Plan of Care Note [code = 70581-6] Goal Plan of Care Note [code = 66412-6] Goal Plan of Care Note [code = 79697-6] Goal Plan of Care Note [code = 55046-4] Goal Plan of Care Note [code = 09856-3] Goal Plan of Care Note [code = 70817-7] Goal Plan of Care Note [code = 06577-4] Goal Plan of Care Note [code = 88530-8] Goal Plan of Care Note [code = 59445-7] Goal Plan of Care Note [code = 54216-0] Goal Plan of Care Note [code = 35768-4] Goal Plan of Care Note [code = 92804-9] Goal Plan of Care Note [code = 21731-8] Goal Plan of Care Note [code = 59467-3] Goal Plan of Care Note [code = 51892-6] Goal Plan of Care Note [code = 83186-6] Goal Plan of Care Note [code = 87608-8] Goal Plan of Care Note [code = 28151-7] Goal Plan of Care Note [code = 50342-2] Goal Plan of Care Note [code = 40115-7] Goal Plan of Care Note [code = 95040-7] Goal Plan of Care Note [code = 99272-4] Goal Plan of Care Note [code = 72222-7] Goal Plan of Care Note [code = 67458-6] Goal Plan of Care Note [code = 61990-6] Goal Plan of Care Note [code = 76157-0] Goal Plan of Care Note [code = 28587-3] Goal Plan of Care Note [code = 88050-0] Goal Plan of Care Note [code = 61398-6] Goal Plan of Care Note [code = 35872-6] Goal Plan of Care Note [code = 90951-1] Goal Plan of Care Note [code = 49087-0] Goal Plan of Care Note [code = 20197-8] Goal Plan of Care Note [code = 66170-9] Goal Plan of Care Note [code = 24651-2] Goal Plan of Care Note [code = 88883-0] Goal Plan of Care Note [code = 85707-7] Goal Plan of Care Note [code = 19192-2] Goal Plan of Care Note [code = 27573-7] Goal Plan of Care Note [code = 67123-0] Goal Plan of Care Note [code = 53276-4] Goal Plan of Care Note [code = 86782-7] Goal Plan of Care Note [code = 07969-2] Goal Plan of Care Note [code = 34135-3] Goal Plan of Care Note [code = 05957-2] Goal Plan of Care Note [code = 59614-2] Goal Plan of Care Note [code = 92323-9] Goal Plan of Care Note [code = 82463-4] Goal Plan of Care Note [code = 59490-0] Goal Plan of Care Note [code = 71219-2] Goal Plan of Care Note [code = 72250-4] Goal Plan of Care Note [code = 30366-8] Goal Plan of Care Note [code = 50790-3] Goal Plan of Care Note [code = 31289-4] Goal Plan of Care Note [code = 79861-7] Goal Plan of Care Note [code = 19189-5] Goal Plan of Care Note [code = 87373-3] Goal Plan of Care Note [code = 90989-9] Goal Plan of Care Note [code = 53630-6] Goal Plan of Care Note [code = 20682-7] Goal Plan of Care Note [code = 00763-1] Goal Plan of Care Note [code = 06490-2] Goal Plan of Care Note [code = 18597-7] Goal Plan of Care Note [code = 40252-8] Goal Plan of Care Note [code = 68812-6] Goal Plan of Care Note [code = 29215-6] Goal Plan of Care Note [code = 37871-2] Goal Plan of Care Note [code = 96145-2] Goal Plan of Care Note [code = 89500-8] Goal Plan of Care Note [code = 36013-1] Goal Plan of Care Note [code = 73870-2] Goal Plan of Care Note [code = 85678-0] Goal Plan of Care Note [code = 34437-3] Goal Plan of Care Note [code = 44163-2] Goal Plan of Care Note [code = 01610-2] Goal Plan of Care Note [code = 25536-9] Goal Plan of Care Note [code = 27074-5] Goal Plan of Care Note [code = 30551-5] Goal Plan of Care Note [code = 28633-6] Goal Plan of Care Note [code = 08364-8] Goal Plan of Care Note [code = 85462-5] Goal Plan of Care Note [code = 23959-0] Goal Plan of Care Note [code = 44866-7] Goal Plan of Care Note [code = 48574-5] Goal Plan of Care Note [code = 26807-1] Goal Plan of Care Note [code = 85262-4] Goal Plan of Care Note [code = 23206-5] Goal Plan of Care Note [code = 12036-9] Goal Plan of Care Note [code = 77244-9] Goal Plan of Care Note [code = 16699-5] Goal Plan of Care Note [code = 63134-2] Goal Plan of Care Note [code = 46938-3] Goal Plan of Care Note [code = 49819-3] Goal Plan of Care Note [code = 81937-4] Goal Plan of Care Note [code = 84483-1] Goal Plan of Care Note [code = 66476-1] Goal Plan of Care Note [code = 49162-9] Goal Plan of Care Note [code = 96730-7] Goal Plan of Care Note [code = 24237-1] Goal Plan of Care Note [code = 82793-0] Goal Plan of Care Note [code = 10449-9] Goal Plan of Care Note [code = 15093-0] Goal Plan of Care Note [code = 03880-8] Goal Plan of Care Note [code = 09479-2] Goal Plan of Care Note [code = 60879-8] Goal Plan of Care Note [code = 23700-6] Goal Plan of Care Note [code = 76048-7] Goal Plan of Care Note [code = 50990-5] Goal Plan of Care Note [code = 64588-0] Goal Plan of Care Note [code = 09310-6] Goal Plan of Care Note [code = 75341-2] Goal Plan of Care Note [code = 85459-6] Goal Plan of Care Note [code = 15154-8] Goal Plan of Care Note [code = 11505-3] Goal Plan of Care Note [code = 63566-7] Goal Plan of Care Note [code = 14373-4] Goal Plan of Care Note [code = 37254-3] Goal Plan of Care Note [code = 53215-0] Goal Plan of Care Note [code = 79791-4] Goal Plan of Care Note [code = 47490-8] Goal Plan of Care Note [code = 83628-0] Goal Plan of Care Note [code = 88226-9] Goal Plan of Care Note [code = 65881-0] Goal Plan of Care Note [code = 65617-7] Goal Plan of Care Note [code = 54391-7] Goal Plan of Care Note [code = 49907-5] Goal Plan of Care Note [code = 86324-1] Goal Plan of Care Note [code = 81440-3] Goal Plan of Care Note [code = 03351-5] Goal Plan of Care Note [code = 09507-5] Goal Plan of Care Note [code = 00603-9] Goal Plan of Care Note [code = 27379-9] Goal Plan of Care Note [code = 52035-9] Goal Plan of Care Note [code = 91439-0] Goal Plan of Care Note [code = 99268-3] Goal Plan of Care Note [code = 22151-2] Goal Plan of Care Note [code = 37464-5] Goal Plan of Care Note [code = 06452-9] Goal Plan of Care Note [code = 12103-4] Goal Plan of Care Note [code = 85869-8] Goal Plan of Care Note [code = 78609-9] Goal Plan of Care Note [code = 09146-1] Goal Plan of Care Note [code = 91156-0] Goal Plan of Care Note [code = 53451-2] Goal Plan of Care Note [code = 81870-1] Goal Plan of Care Note [code = 83884-8] Goal Plan of Care Note [code = 80206-5] Goal Plan of Care Note [code = 36955-6] Goal Plan of Care Note [code = 36563-8] Goal Plan of Care Note [code = 77165-8] Goal Plan of Care Note [code = 93013-1] Goal Plan of Care Note [code = 44554-3] Goal Plan of Care Note [code = 10320-7] Goal Plan of Care Note [code = 16252-7] Goal Plan of Care Note [code = 91709-7] Goal Plan of Care Note [code = 06086-9] Goal Plan of Care Note [code = 22456-6] Goal Plan of Care Note [code = 37312-2] Goal Plan of Care Note [code = 62178-8] Goal Plan of Care Note [code = 64253-5] Goal Plan of Care Note [code = 55168-0] Goal Plan of Care Note [code = 02293-0] Goal Plan of Care Note [code = 17330-6] Goal Plan of Care Note [code = 54861-8] Goal Plan of Care Note [code = 51997-8] Goal Plan of Care Note [code = 72656-6] Goal Plan of Care Note [code = 75959-3] Goal Plan of Care Note [code = 19165-8] Goal Plan of Care Note [code = 77332-1] Goal Plan of Care Note [code = 28538-0] Goal Plan of Care Note [code = 32700-4] Goal Plan of Care Note [code = 54259-8] Goal Plan of Care Note [code = 28016-6] Goal Plan of Care Note [code = 01476-2] Goal Plan of Care Note [code = 50933-2] Goal Plan of Care Note [code = 37480-9] Goal Plan of Care Note [code = 06726-8] Goal Plan of Care Note [code = 95183-0] Goal Plan of Care Note [code = 39490-1] Goal Plan of Care Note [code = 52192-5] Goal Plan of Care Note [code = 59879-3] Goal Plan of Care Note [code = 99921-2] Goal Plan of Care Note [code = 79436-3] Goal Plan of Care Note [code = 67504-2] Goal Plan of Care Note [code = 62259-1] Goal Plan of Care Note [code = 83606-3] Goal Plan of Care Note [code = 60359-9] Goal Plan of Care Note [code = 42240-4] Goal Plan of Care Note [code = 14188-0] Goal Plan of Care Note [code = 11475-5] Goal Plan of Care Note [code = 53004-7] Goal Plan of Care Note [code = 61192-0] Goal Plan of Care Note [code = 54638-8] Goal Plan of Care Note [code = 86791-9] Goal Plan of Care Note [code = 18250-2] Goal Plan of Care Note [code = 08015-8] Encounters Start End Encounter Admission Attending Care Care Encounter Source Date/Time Date/Time Type Type Clinicians Facility Department ID 2022-10-04 [facility] 1.2.840.1 [id number] Methodi 00:00:[address] 3.430.2.7 Hospit a .3.662610 l .8 2022-10-03 [facility] [id number] [facility] 00:[facility]:00 Encounter [id number] 00:[facility]:00 Encounter [facility] 2022-04-01 Outpatient 3 [id number] ENC[facility] REF [id number] [facility] 15:21:07 [facility] [place] 2022-03-31 Outpatient 3 983005 ENC[facility] REF [id number] [facility] 14:48:02 [facility] [place] 2022-03-25 Outpatient 3 979157 ENCPL REF [id number] [facility] 10:48:24 [facility] [place] [facility] 2021-02-05 Outpatient BHARAT, [facility] [id number] [facility] 05:27:44 IRMA 2021-02-04 Outpatient ALAMayra, SLE Surgery [id number] [facility] 23:01:57 MAHBOOB 2023-01-28 2023-01-28 Outpatient SFA SFA 76740-1 023 [place] 13:37:59 13:37:59 0928 F Martínez 2022-12-11 2022-12-11 Transition RICHIE Wallis 1.2.840.114 [id number] Univers 00:00:00 00:00:00 of Care Zohaib MANCINI 350.1.13.10 [place] [id number] [facility] [address] 2022-12-07 2022-12-10 Inpatient X CHARIS GANDARA, [facility] [id number] Univers 14:34:00 16:13:00 HO ity of [facility] 2022-12-07 2022-12-10 Hospital GLORIA Vizcaino 1.2.840.114 [id number] 7308 Univers 14:34:00 16:13:00 Encounter Ho JEFFERSON 350.1.13.10 ity of [facility] 4.2.7.2.686 Tony as [id number] [facility] [address] 2022-12-07 2022-12-07 Anesthesia Abu-Johnny, 1.2.840.2 [id number] Univers 23:59:59 23:59:59 Event [place] 77511.1.1 ity of 3.104.2.7 [place] .3.685113 Medica l .8 Branch 2022-12-07 2022-12-07 Travel 1.2.840.1 1.2.962.573 1278 62955 Univers 00:00:00 00:00:00 88594.1.1 350.1.13.10 ity of 3[place].2.[place] .3.[place] 084.8 Medica l .8 [place] 2022-12-02 2022-12-02 Outpatient [facility] 66687-4 023 [place] 10:27:40 10:27:40 0802 F Bruneau 2022-12-01 2022-12-01 Outpatient [facility] 63448-3 023 [place] 16:30:55 16:30:55 0801 F Bruneau 2022-11-23 2022-11-23 Outpatient [facility] 96191-4 023 [place] 14:32:37 14:32:37 0724 F [place]uneau 2022-10-15 2022-10-15 Orders Doctor 1.2.840.7 [id number] 06414 [id number] Univers 00:00:00 00:00:00 Only Unassigned, 35988.1.1 ity of [place] 3.104.2.7 [place] .3.645962 Medica l .8 [place] 2022-10-13 2022-10-13 Outpatient [facility] 42639-6 023 [place] 14:26:27 14:26:27 0613 F Bruneau 2022-10-09 2022-10-09 Transition Deborde, 1.2.840.5 [id number] 1 [id number] Univers 00:00:00 00:00:00 of Care Bambi Gardner 78536.1.1 ity of 3.104.2.7 [place] .3.829312 Medica l .8 [place] 2022-10-03 2022-10-08 Outpatient U JIM LANDEROS [facility] 1 [id number] Univers 23:30:00 12:30:00 JIM LANDEROS ity of [facility] 2022-10-03 2022-10-08 Hospital Landeros, 1.2.840.6 [id number] 1037 82895 Univers 23:30:00 12:30:00 Encounter Jim 13644.1.1 i ty of 3.104.2.7 [place] .3.367663 Medica l .8 Branch 2022-10-04 2022-10-04 Surgery Landeros, 1.2.840.3 [id number] 4775 Univers 14:10:00 17:12:00 Jim 49923.1.1 ity of 3.104.2.7 [place] .3.447761 Medica l .8 Branch 2022-10-04 2022-10-04 Anesthesia Adama Page 1.2.840.2 [id number] [facility] 14:22:00 17:00:00 Event Molly Fisher 67657.1.1 [facility] 3.104.2.7 [place] 80893.477392 Medica l .8 [place] 2022-09-22 2022-09-22 Outpatient SFA SFA 86485-2 023 [place] 13:46:32 13:46:32 0523 [facility] 2022-09-10 2022-09-10 Outpatient SFA SFA 21568-1 023 [place] 08:13:34 08:13:34 0511 [facility] 2022-09-08 2022-09-08 Outpatient SFA SFA 66417-6 023 [place] 17:33:06 17:33:06 0509 [facility] 2022-08-19 2022-08-19 Outpatient SFA SFA 04223-6 023 [place] 10:53:44 10:53:44 0419 [facility] 2022-08-18 2022-08-18 Outpatient R JESI [facility] [id number] 705 Univers 00:00:00 00:00:00 HO [facility] 2022-04-21 2022-07-23 Outpatient RECERTIFIC MICHAEL ENCCLR ENCCLR [id number] 72 ENCCLR 00:00:00 00:00:00 NIKOLESEBASTIAN JACINTO PEARSON 2022-07-20 2022-07-20 Outpatient SFA SFA 05612-4 023 [place] 11:34:05 11:34:05 0320 [facility] 2022-06-29 2022-06-29 Outpatient SFA SFA 06563-2 023 [place] 11:09:32 11:09:32 0227 [facility] 2022-06-09 2022-06-09 Outpatient R KHOA [facility] [id number] Univers 13:30:00 13:30:00 JOSELUIS [facility] 2022-05-28 2022-05-28 Outpatient SFA SFA 69579-8 023 [place] 09:36:19 09:36:19 0126 [facility] 2022-05-28 2022-05-28 Orders Doctor DECKER 1.2.840.114 [id number] Univers 00:00:00 00:00:00 Only Unassigned, RONNY 350.1.13.10 ity of [place] [facility] 4.2.7.2.686 Tony as [id number] [address] 2022-04-23 2022-04-23 Outpatient [facility] 12572-8 022 [place] 11:12:51 11:12:51 1222 F Martínez 2022-04-23 2022-04-23 Outpatient 16722tw9- [id number] 08 816hq9-5 00:00:00 00:00:00 Visit 1c06-285y r40-373e-1 -8818-496 [id number] 2022-04-22 2022-04-22 Outpatient [facility] [id number] [place] 11:56:37 11:56:37 1221 F Martínez 2022-04-21 2022-04-21 Outpatient KEKE AUGUSTINE ENCCLR ENCCLR [id number] ENCCLR 00:00:00 00:00:00 ADMISSION Y, GERRI 2022-04-20 2022-04-20 Outpatient [facility] [id number] [place] 13:44:26 13:44:26 1219 F Martínez 2022-04-20 2022-04-20 Outpatient [id number] 00:00:00 00:00:00 Visit 868d-4ba4 68d-4ba4-8 -857d-890 [id number]-[id number] 2022-04-07 2022-04-17 Inpatient 3 [facility] ENCPL OT 5814 [place]comp[place] 18:25:00 16:40:00 hez, 1206 ss [facility] Tianna ndiaye 2022-04-15 2022-04-15 Outpatient Provider, SANDIE WILSON [id number] AMINA 03:25:00 03:25:00 Undefined 02 [facility] 2022-03-17 2022-03-17 Outpatient SFA [id number] [place] 09:09:19 09:09:19 1115 F Bruneau 2022-03-17 2022-03-17 Outpatient [id number] 00:00:00 00:00:00 Visit [id number] 106-4636-b -[id number]-375 5be-547ae2 [id number] 2022-03-04 2022-03-04 Outpatient SFA SFA [id number] [place] 13:56:07 13:56:07 1102 F Martínez 2022-03-04 2022-03-04 Outpatient [id number] 00:00:00 00:00:00 Visit 9529-42f7 529-42f7-a -sl97-gy4 s68-ro597y [id number] [id number] 2022-02-24 2022-02-[address] [facility] [id number] 00:00:00 00:00:00 [facility] 2022-02-24 2022-02-[address] [facility] [id number] 00:00:00 00:00:00 [facility] 2022-02-17 2022-02-17 Outpatient SFA [facility] [id number] [place] 14:09:24 14:09:24 1018 F Martínez 2022-02-17 2022-02-17 Outpatient [id number] 00:00:00 00:00:00 Visit s19i-19n9 39e-47c5-b -n9w4-6hz 2i3-2sws5j [id number] 8739-10-04 2022-02-03 Outpatient SFA SFA 20516-9 022 [place] 13:41:10 13:41:10 1004 F Martínez 2022-02-03 2022-02-03 Outpatient [id number] 00:00:00 00:00:00 Visit 4378-45d4 378-45d4-b -kf7q-383 w7a-6861d0 [id number] 0427fc 2021-12-23 2021-12-23 [facility] [id number] Univers 00:00:00 00:00:00 [facility] 350.1.13.10 it y of [place] 4.2.7.2.686 Tony as CAR?BLEA [id number] [facility] 220 [facility] OFFICE [facility] 2021-12-04 2021-12-04 Outpatient [id number] 00:00:00 00:00:00 Visit 30w9-7n46 1h2-4y77-4 -28f2-a5n 2q5-k9zzu5 [id number] [id number] 2021-12-02 2021-12-02 [facility] [id number] Univers 16:00:00 16:00:00 [facility] 2021-12-02 2021-12-02 Emergency Management Coordinator Lab, Gen [facility] 1.2.840.1 14 [id number] Univers 15:15:00 15:16:31 [facility] 350.1.13.10 ity of [place] 4.2.7.2.686 Tony as CAR?BLEA [id number] [address] OFFICE [facility] 2021-12-02 2021-12-02 [facility] [id number] Univers 14:30:00 14:57:05 [facility] 2021-12-02 2021-12-02 Office [facility] 1.2.840.114 [id number] Univers 14:30:00 14:57:05 Visit [facility] 350.1.13.10 it y of [place] 4.2.7.2.686 Tony as CAR?BLEA [id number] [address] OFFICE [facility] 2021-12-02 2021-12-02 Outpatient [id number] 00:00:00 00:00:00 Visit 9nh5-1245 db2-4873-a -t6k4-733 1i2-1477b6 4c15g14a5 1f79f2 2021-11-26 2021-11-26 [facility] [id number] Univers 14:00:00 14:00:00 [facility] 2021-10-21 2021-10-21 Outpatient R FERNANDEZ, [facility] [id number] Univers 14:30:00 14:30:00 [facility] ity [facility] 2021-07-29 2021-07-29 Telephone [facility] [id number] Univers 00:00:00 00:00:00 [facility] 350.1.13.10 it y of [place] 4.2.7.2.686 Tony as CAR?BLEA [id number] [address] MEDICAL OFFICE BUILDING 2021-07-15 2021-07-15 Out[facility] [id number] Univers 09:30:00 10:12:40 [facility] 2021-07-15 2021-07-15 Office [facility] 1.2.840.114 [id number] Univers 09:30:00 10:12:40 Visit [facility] 350.1.13.10 it y of [place] 4.2.7.2.686 Tony as CAR?BLEA [id number] [address] MEDICAL OFFICE BUILDING 2021-03-06 2021-03-06 Hospital Radiology [facility] 1.2.840.114 [id number] Univers 12:24:35 23:59:00 Encounter [place] 350.1.13.10 it[place] [id number] [address] 2021-03-06 2021-03-06 Hospital Radiology [facility] 1.2.840.114 [id number] Univers 12:23:40 12:23:40 Encounter [place] 350.1.13.10 [facility] [place] [id number] [address] 2021-03-06 2021-03-06 Outpatient R RADIOLOGY [facility] [id number] Univers 12:23:40 12:23:40 ity of [facility] 2021-03-06 2021-03-06 Outpatient R RADIOLOGY [facility] [id number] Univers 12:23:40 12:23:40 ity of [facility] 2021-02-27 2021-02-27 Outpatient R RADIOLOGY [facility] [id number] Univers 00:00:00 00:00:00 ity [facility] 2021-02-27 2021-02-27 Outpatient R RADIOLOGY [facility] [id number] Univers 00:00:00 00:00:00 ity [facility] 2021-02-13 2021-02-[address] [facility] [id number] [facility]3] 00:00:00 00:00:[address] [facility] 2021-02-03 2021-02-03 Orders Doctor BRIANNE 1.2.840.114 [id number] Univers 00:00:00 00:00:00 Only Unassigned, RONNY 350.1.13.10 ity [place] 4.2.7.2.686 Tony as [id number] [address] 2020-11-22 2020-11-22 Out[facility] [id number] Univers 13:00:00 13:00:00 [facility] 2020-10-08 2020-10-08 Telephone [facility] 1.2.840.114 [id number] 00:00:00 00:00:00 Sam Doherty 350.1.13.10 [place] 4.2.7.2.686 Professio [id number] [address] 2020-10-07 2020-10-07 Orders Doctor BRIANNE 1.2.840.114 [id number] 00:00:00 00:00:00 Only Unassigned, RONNY 350.1.13.10 [facility] 4.2.7.2.686 [id number] 009 2020-10-04 2020-10-04 Outpatient R BENEDICT [facility] [id number] Univers 14:00:00 14:00:00 [facility] 2020-09-19 2020-09-19 Outpatient Rayne GARCIA [facility] [id number] Univers 11:00:00 11:00:00 DEAN stewart o f [facility] 2020-09-10 2020-09-10 Outpatient Rayne GARCIA [facility] [id number] Univers 10:00:00 10:00:00 DEAN sheffield [facility] 2020-08-20 2020-08-20 Office [facility] 1.2.840.114 [id number] 13:15:09 13:42:21 Visit Dean Doherty 350.1.13.10 [place] 4.2.7.2.686 Tania [id number] [facility] 2020-08-20 2020-08-20 Outpatient Rayne GARCIA, [facility] [id number] Univers 13:20:00 13:20:00 DEAN sheffield [facility] 2019-12-14 2019-12-14 Outpatient [facility] [id number] [facility] 00:00:00 00:00:00 2019-11-14 2019-11-14 Outpatient EL GIPSON, [facility] [id number] [facility] 00:00:00 00:00:00 HUNTER 2019-11-14 2019-11-14 Outpatient [facility] [id number] [facility] 00:00:00 00:00:00 2019-11-14 2019-11-14 Outpatient EL [facility] [id number] [facility] 00:00:00 00:00:00 2019-10-31 2019-10-31 Outpatient [facility] [id number] [facility] 00:00:00 00:00:00 2019-10-31 2019-10-31 Outpatient [facility] [id number] [facility] 00:00:00 00:00:00 2019-10-17 2019-10-17 Outpatient [facility] [id number] [facility] 00:00:00 00:00:00 2019-10-17 2019-10-17 Outpatient EL [facility] [id number] [facility] 00:00:00 00:00:00 2019-07-13 2019-07-13 Outpatient [facility] [id number] 2-2 [facility] 00:00:00 00:00:00 [id number] 2019-06-15 2019-06-15 Outpatient [facility] [id number] 2-2 [facility] 00:00:00 00:00:00 [id number] Results Test Description Test Time Test Comments Results Result Comments Source POCT GLUCOSE (AUTOMATED) 2022-12-08 16:07:27 Test Item Value Reference Range Interpretation Comme nts POCT GLU (test code = 1115158769) 166 mg/dL 70-110 H Lab Interpretation (test code = 72284-2) Abnormal [facility] GLUCOSE (AUTOMATED)2022-12-08 16:07:27 Test Item Value Reference Range Interpretation Comments POCT GLU (test code = 2642268914) 166 mg/dL 70-110 H Lab Interpretation (test code = Abnormal 68777-9) [facility] GLUCOSE (AUTOMATED)2022-12-08 14:06:53 Test Item Value Reference Range Interpretation Comments POCT GLU (test code = 2435908052) 125 mg/dL 70-110 H Lab Interpretation (test code = Abnormal 88439-2) [facility] WITHOUT [id number] 03:06:47 Test Item Value Reference Range Interpretation Comments WBC (test code = 6690-2) 10.23 See_Comment [A utomated message] The system [employer] generated this result transmit kailey reference range : 4.20 - 10.70 10*3/?L. The reference range was not used to interpret this result as normal/abnormal . RBC (test code = 789-8) 3.52 See_Comment L [Au tomated message] The system [employer] generated this result transmit kailey reference range : 4.26 - 5.52 10* 6/?L. The reference r dominic was not used to interpret this result as normal/abnormal . HGB (test code = 718-7) 11.7 g/dL 12.2-16.4 L HCT (test code = 4544-3) 33.5 % 38.4-49.3 L MCH (test code = 785-6) 33.2 pg 26.1-32.7 H MCV (test code = 787-2) 95.2 fL 81.7-95.6 MCHC (test code = 786-4) 34.9 g/dL 31.2-35.0 PLT (test code = 777-3) 302 See_Comment [Au tomated message] The system [employer] generated this result transmit kailey reference range : 150 - 328 10*3/?L. The reference range was not used to interpret this result as normal/abnormal . MPV (test code = 10.0 fL 9.8-13.0 64200-2) RDW-CV (test code = 13.4 % 12.1-15.4 788-0) RDW-SD (test code = 46.5 fL 38.5-51.6 99808-9) NRBC x10^3 (test code = See_Comment [Au tomated message] 6104287599) The system [employer] generated this result transmit kailey reference range : 10*3/?L. The reference range was not used to interpret this result as normal/abnormal . NRBC/100 WBC (test code 0.0 See_Comment [Au tomated message] = 6784292366) The system [employer] generated this result transmit kailey reference range : 0.0 - 10.0 /100 WBC s. The reference r dominic was not used to interpret this result as normal/abnormal . IPF % (test code = 2447944881) Lab Interpretation (test Abnormal code = 91335-0) [facility] WITHOUT [id number] 03:06:47 Test Item Value Reference Range Interpretation Comments WBC (test code = 6690-2) 10.23 See_Comment [A utomated message] The system [employer] generated this result transmit kailey reference range : 4.20 - 10.70 10*3/?L. The reference range was not used to interpret this result as normal/abnormal . RBC (test code = 789-8) 3.52 See_Comment L [Au tomated message] The system [employer] generated this result transmit kailey reference range : 4.26 - 5.52 10* 6/?L. The reference r dominic was not used to interpret this result as normal/abnormal . HGB (test code = 718-7) 11.7 g/dL 12.2-16.4 L HCT (test code = 4544-3) 33.5 % 38.4-49.3 L MCH (test code = 785-6) 33.2 pg 26.1-32.7 H MCV (test code = 787-2) 95.2 fL 81.7-95.6 MCHC (test code = 786-4) 34.9 g/dL 31.2-35.0 PLT (test code = 777-3) 302 See_Comment [Au tomated message] The system [employer] generated this result transmit kailey reference range : 150 - 328 10*3/?L. The reference range was not used to interpret this result as normal/abnormal . MPV (test code = 10.0 fL 9.8-13.0 79585-6) RDW-CV (test code = 13.4 % 12.1-15.4 788-0) RDW-SD (test code = 46.5 fL 38.5-51.6 66635-0) NRBC x10^3 (test code = See_Comment [Au tomated message] 2737509455) The system [employer] generated this result transmit kailey reference range : 10*3/?L. The reference range was not used to interpret this result as normal/abnormal . NRBC/100 WBC (test code 0.0 See_Comment [Au tomated message] = 6584304333) The system [facility] generated this result transmit kailey reference range : 0.0 - 10.0 /100 WBC s. The reference r dominic was not used to interpret this result as normal/abnormal . IPF % (test code = 1256913422) Lab Interpretation (test Abnormal code = 10767-9) [facility] 01:01:40 Test Item Value Reference Range Interpretation Comments POCT GLU (test code = 8806587532) 95 mg/dL 70-110 Lab Interpretation (test code = Normal 12897-9) [facility]ial Blood Gas.2022-10-07 19:59:06 Test Item Value Reference Range Interpretation Comments PH (test code = 2) 7.40 7.35-7.45 PCO2 (test code = 44 See_Comment [Automate d message] 9768756818) The system [employer] generated this result transmitted ref erence range: 35 - 45 mmHg. The reference r dominic was not used to interpret this result as normal/abnor mal. PO2 (test code = 65 See_Comment L [Automated message] 8730863497) The system [employer] generated this result transmitted ref erence range: 80 - 100 mmHg. The reference r dominic was not used to interpret this result as normal/abnor mal. HCO3 (test code = 27 See_Comment H [Automate d message] 3934445962) The system [employer] generated this result transmitted ref erence range: 22 - 26 mEq/L. The reference r dominic was not used to interpret this result as normal/abnor mal. BE (test code = 1.4 See_Comment [Automated message] 9647489114) The system [employer] generated this result transmitted ref erence range: -3.0 - 3 .0 mEq/L. The refe rence range was not u sed to interpret this result as normal/abnor mal. Lab Interpretation (test Abnormal code = 62756-4) [facility] HospitalFerritin [id number] 18:47:38 Test Item Value Reference Range Interpretation Comments FERRITIN (test code = 759.0 ng/mL 18.0-464.0 H 5927513219) LOVE (test code = LOVE) Biotin has been reported to cause a negative bias, interpret results relative to patient's use of biotin. Lab Interpretation (test Abnormal code = 36887-0) [facility]IRON [id number] 18:17:34 Test Item Value Reference Range Interpretation Comments IRON (test code = 9554415876) 80 ug/dL 50-160 TIBC (test code = 4017519199) 280 ug/dL 250-410 % FE SAT (test code = 1704405120) 29 % 20-50 Lab Interpretation (test code = Normal 35514-6) [facility] Surface Antigen (HBsAg)2022-10-05 15:35:57 Test Item Value Reference Range Interpretation Comments HBsAg Semi-Quantitative (test code = 0.04 Negative 5195-3) [facility] Surface Antibody (HBsAb)2022-10-05 15:21:17 Test Item Value Reference Range Interpretation Comments HBsAB (test code = Positive 1887737908) HBsAb 171.00 mIU/mL Semi-Quantitative (test code = 3889440173) LOVE (test code = Interpretation: LOVE) ?Hepatitis B Surface Antibody ? Negative - Patient is considered to be not immune to infection with HBV. ? ? Positive - Anti-HBs detected at greater than or equal to 12 mIU/mL. ?Patient is considered to be immune to infection with HBV. ? [facility] HospitalHEMOGLOBIN [id number] 05:14:56 Test Item Value Reference Range Interpretation Comments HEMOGLOBIN A1c (test 5.9 % 4.2-5.6 H [employer]IC AN DIABETES code = 85598) ASSOCIATION IDELINES FOR HGB A1C: PREDIABETES/INC REASED [...] ALTERN ATE TESTING OR LABORATORY C ONSULTATION. UNLESS OTHERWIS E INDICATED, ALL TESTING PER FORMED AT [facility], [place] [address] 2934 LABORATORY DIRE CTOR: PRISCILLA BELL M.D. CLIA NUMBER [id number] CAP ACCREDITATION N O. [id number] COMPREHENSIVE METABOLIC [id number] 05:50:10 Test Item Value Reference Range Interpretation Comments GLUCOSE (test code = 199 MG/DL 70-99 H 2216) BUN (test code = 53 MG/DL 6-20 H 2207) CREATININE (test 9.05 MG/DL 0.80-1.40 H code = 2214) eGFR (2020 CKD-EPI) 6 ML/MIN/1.73 >60 L (test code = 05368) CALC BUN/CREAT (test 6 RATIO 6-28 code = 2235) SODIUM (test code = 135 MEQ/L 918-037 3533) POTASSIUM (test code 4.3 MEQ/L 3.5-5.4 = [...] (test code = 15 U/L 5-50 CPL h as 9) important patho logy staff changes effective 07/01. New patholo gy staff will prov lisa uninterrupted, excellent patie nt care and clinic al consultation. S ee URL: [email or web address]. UNLE SS OTHERWISE INDIC ATED, ALL TESTING PER FORMED AT [facility], [facility]. [address] [place] [address] CONNIE CHRISTENSEN DIRECTOR: ELIZABETH MILLER M.D. C MYKE NUMBER [id number] CAP ACCREDITATION N O. [id number] TSH, THIRD [id number] 06:11:47 Test Item Value Reference Range Interpretation Comments TSH, THIRD >100.000 0.400-4.100 H CPL has GENERATION (test UIU/ML important p athology code = 2821) staff changes effective 07/01. New patholo gy staff will prov lisa uninterrupted, excellent patie nt care and clinic al consultation. S ee URL: [email or web address]. UNLE SS OTHERWISE INDIC ATED, ALL TESTING PER FORMED AT [facility], [facility]. [address] [place] [address] [employer] CHRISTENS[place] DIRECTOR: LATOYA MCCALL M.D. CLIA NUMBER [id number] CAP ACCREDITATION N O. [id number] LIPID [id number] 03:11:34 Test Item Value Reference Range Interpretation [...] MOREINFORMATION , SEE CLIENT ANNOUNCE MENT AT [email or web address] RISK RATIO LDL/HDL 1.58 RATIO <3.55 (test code = 2238) TSH, THIRD [id number] 06:32:46 Test Item Value Reference Range Interpretation Comments TSH, THIRD GENERATION (test >100.000 UIU/ML 0.400-4.100 H code = 2821) PSA, [id number] 06:32:46 Test Item Value Reference Range Interpretation Comments PSA, TOTAL 0.57 NG/ML See_Comment NOTE: Methodol ogy is Ezio (test code = Radhika Electroch emiluminescence 2606) Immunoassay tra ceable to WHO reference stand rea 96/760. UNLESS OTHERWIS E INDICATED, ALL TESTING PERFORM ED ATCLINICAL PATHOLOGY [facility], [facility]. [address] [place] [address] LABORATORY DIRE CTOR: LATOYA MCCALL M.D. CLIA NUMBER [id number] [place]. [id number] [A utomated message] The sy stem which generated this result transmitted ref erence range: <=4.00. The ref erence range was not used to int erpret this result as ryne l/abnormal. COMPREHENSIVE METABOLIC [id number] 04:57:27 Test Item Value Reference Range Interpretation Comments GLUCOSE (test code = 204 MG/DL 70-99 H 2216) BUN (test code = 17 MG/DL 6-20 2207) CREATININE (test 5.58 MG/DL 0.80-1.40 H code = 4) eGFR (2020 CKD-EPI) 11 ML/MIN/1.73 >60 L (test code = 22937) CALC BUN/CREAT (test 3 RATIO 6-28 L code = 2235) SODIUM (test code = 143 MEQ/L 995-434 4156) POTASSIUM (test code 3.8 MEQ/L 3.5-5.4 = 2227) CHLORIDE (test code 98 MEQ/L 95-107 = 2214) CARBON DIOXIDE (test 29 MEQ/L 19-31 code = 2205) CALCIUM (test code = 8.7 MG/DL 8.5-10.5 2208) PROTEIN, TOTAL (test 7.0 G/DL 6.1-8.3 code = 2228) ALBUMIN (test code = 4.4 G/DL 3.5-5.2 2200) CALC GLOBULIN (test 2.6 G/DL 1.9-3.7 code = 2239) CALC A/G RATIO (test 1.7 RATIO 1.0-2.6 code = 2233) BILIRUBIN, TOTAL <0.2 MG/DL See_Comment [Automated message] [...] code = 15 U/L 5-50 2218) HEMOGLOBIN [id number] 03:24:27 Test Item Value Reference Range Interpretation Comments HEMOGLOBIN A1c (test code = 08300) 5.8 % 4.2-5.6 H CBC W/AUTO DIFF WITH [id number] 03:19:43 Test Item Value Reference Range Interpretation [...] RBCS 0.00 K/UL 0.00-0.11 (test code = 04233) CBC W/AUTO [id number] 00:00:00 Test Item Value Reference Range Interpretation [...] NUCLEATED RBCS (test code = 0.00 K/UL 51625) CBC W/AUTO [id number] 00:00:00 Test Item Value Reference Range Interpretation [...] NUCLEATED RBCS (test code = 0.00 K/UL 86117) CBC W/AUTO [id number] 00:00:00 Test Item Value Reference Range Interpretation [...] NUCLEATED RBCS (test code = 0.00 K/UL 12652) HEMOGLOBIN [id number] 00:00:00 Test Item Value Reference Range Interpretation Comments HEMOGLOBIN A1c (test code = 59651) 5.8 % HEMOGLOBIN [id number] 00:00:00 Test Item Value Reference Range Interpretation Comments HEMOGLOBIN A1c (test code = 48169) 5.8 % HEMOGLOBIN [id number] 00:00:00 Test Item Value Reference Range Interpretation Comments HEMOGLOBIN A1c (test code = 36589) 5.8 % COMPREHENSIVE METABOLIC [id number] 00:00:00 Test Item Value Reference Range Interpretation Comments GLUCOSE (test code = 2217) 204 MG/DL BUN (test code = 2208) 17 MG/DL CREATININE (test code = 2214) 5.58 MG/DL eGFR (2020 CKD-EPI) (test code 11 ML/MIN/1.73 = 70236) CALC BUN/CREAT (test code = 3 RATIO [...] code = 2219) 15 U/L COMPREHENSIVE METABOLIC [id number] 00:00:00 Test Item Value Reference Range Interpretation Comments GLUCOSE (test code = 2217) 204 MG/DL BUN (test code = 2208) 17 MG/DL CREATININE (test code = 2214) 5.58 MG/DL eGFR (2020 CKD-EPI) (test code 11 ML/MIN/1.73 = 67256) CALC BUN/CREAT (test code = 3 RATIO [...] code = 2219) 15 U/L TSH, THIRD [id number] 00:00:00 Test Item Value Reference Range Interpretation Comments TSH, THIRD GENERATION (test >100.000 UIU/ML code = 2821) TSH, THIRD [id number] 00:00:00 Test Item Value Reference Range Interpretation Comments TSH, THIRD GENERATION (test >100.000 UIU/ML code = 2821) TSH, THIRD [id number] 00:00:00 Test Item Value Reference Range Interpretation Comments TSH, THIRD GENERATION (test >100.000 UIU/ML code = 2821) PSA, [id number] 00:00:00 Test Item Value Reference Range Interpretation Comments PSA, TOTAL (test code = 2606) 0.57 NG/ML PSA, [id number] 00:00:00 Test Item Value Reference Range Interpretation Comments PSA, TOTAL (test code = 2606) 0.57 NG/ML PSA, [id number] 00:00:00 Test Item Value Reference Range Interpretation Comments PSA, TOTAL (test code = 2606) 0.57 NG/ML - CT ABD PELVIS W/O [id number] 17:19:00 [facility] 1965 Sex: M Name: ROSALIO RAMIREZOS [facility] : 1965 Age/S: 56 / M [address] [place] Unit #:[id number] Loc: [place] [address] Phys: Jacinto Simpson MD Acct: [id number] Dis Date: Status: REG REF PHONE #: [phone] Exam Date: 04/16/2022 1708 FAX #: Reason: RESP FAILURE EXAMS: CPT: [id number] CT ABD PELVIS W/O CONT 14407 CT abdomen and pelvis without contrast: HISTORY: [...] Signed Report (CONTINUED) Name: MEHRDAD RAMIREZ [facility] : 1965 Age/S: 56 / M [address] [facility] [place] Unit #: [id number]: [place] [address] Phys: Jacinto Simpson MD Acct: [id number] Dis Date: Status: REG REF PHONE #: [phone] Exam Date: 04/16/2022 170 FAX #: Reason: RESP FAILURE EXAMS: CPT: [id number] CT ABD PELVIS W/O CONT 00828 (Continued) evidence of ascites. Abdominal wall is [...] RT(R) CTDI: DLP: Trnscb Date/Time: 04/16/2022 (171) [email or web address] Orig Print D/T: S: 04/16/2022(117) PAGE 2 Signed ReportCBC W/AUTO [id number] 05:14:00 Test Item Value Reference Range Interpretation [...] NT WITH AUTO DIFFERENTI AL. BASIC METABOLIC [id number] 03:59:00 Test Item Value Reference Range Interpretation [...] L = CA) CBC W/AUTO DIFF WITH [id number] 09:42:23 Test Item Value Reference Range Interpretation [...] RBCS 0.00 K/UL 0.00-0.11 (test code = 87022) HEMOGLOBIN [id number] 09:27:39 Test Item Value Reference Range Interpretation Comments HEMOGLOBIN A1c (test code = 44573) 6.2 % 4.2-5.6 H TSH, THIRD [id number] 06:43:39 Test Item Value Reference Range Interpretation Comments TSH, THIRD GENERATION (test 82.000 UIU/ML 0.400-4.100 H code = 2821) HIV 1/2 4TH GEN, RFLX [id number] 05:21:13 Test Item Value Reference Range Interpretation Comments HIV 1/2 4TH GEN, RFLX CONF (test NON-REACTIVE NON-REACTIVE code = 3514) HEPATITIS PANEL, [id number] 05:21:13 Test Item Value Reference Range Interpretation Comments HEPATITIS A IgM (test NON-REACTIVE NON-REACTIVE code = 06042) HEPATITIS B CORE IgM NON-REACTIVE NON-REACTIVE (test code = 4644) HEPATITIS B SURF AG NON-REACTIVE NON-REACTIVE (test code = 2739) HEPATITIS C ANTIBODY NON-REACTIVE NON-REACTIVE (test code = 4675) INTERPRETATION (NOTE) Hepatitis A HEPATITIS A: (test serology shows no code = 2552) evidence of acu te hepatitis A. INTERPRETATION (NOTE) Hepatitis B HEPATITIS B: (test serology shows no code = 20885) evidence of ac [place] hepatitis B and no indication of exposure to hepatitis B vir us in the previous si xto eight months. INTERPRETATION (NOTE) Hepatitis C HEPATITIS C: (test serology shows no code = 61288) evidence of ex posure to hepatitisC v irus at this time. I t can take up to 12 m onths after exposure tothe hepatitis C vir us for antibodies to become detectab le in the blood in certain patient s. UNLESS OTHERWIS E INDICATED, ALL TESTING PERFORM ED ATCLINICAL PATH OLOGY LABORATORIES, [place]. [address] [facility] [place] [address] [facility] DIRECTOR: LATOYA MCCALL M.D. CLIA NUMBER [id number] [place] [id number] LIPID [id number] 03:30:59 Test Item Value Reference Range Interpretation [...] MOREINFORMATION , SEE CLIENT ANNOUNCE MENT AT [email or web address]/ CalcLDL-C RISK RATIO LDL/HDL (NOTE) RATIO <3.55 UNABLE T O CALCULATE (test code = 2238) COMPREHENSIVE METABOLIC [id number] 03:30:59 Test Item Value Reference Range Interpretation Comments GLUCOSE (test code = 117 MG/DL 70-99 H 2216) BUN (test code = 54 MG/DL 6-20 H 2207) CREATININE (test 11.27 MG/DL 0.80-1.40 H code = 2214) eGFR (2020 CKD-EPI) 5 ML/MIN/1.73 >60 L (test code = 78845) CALC BUN/CREAT (test 5 RATIO 6-28 L code = 2235) SODIUM (test code = 139 MEQ/L 355-197 5780) POTASSIUM (test code 4.2 MEQ/L 3.5-5.4 = [...] = 8 U/L 5-50 9) CBC W/AUTO [id number] 00:00:00 Test Item Value Reference Range Interpretation [...] NUCLEATED RBCS (test code = 0.00 K/UL 98872) CBC W/AUTO [id number] 00:00:00 Test Item Value Reference Range Interpretation [...] NUCLEATED RBCS (test code = 0.00 K/UL 43304) CBC W/AUTO [id number] 00:00:00 Test Item Value Reference Range Interpretation [...] NUCLEATED RBCS (test code = 0.00 K/UL 13645) HEMOGLOBIN [id number] 00:00:00 Test Item Value Reference Range Interpretation Comments HEMOGLOBIN A1c (test code = 46269) 6.2 % HEMOGLOBIN [id number] 00:00:00 Test Item Value Reference Range Interpretation Comments HEMOGLOBIN A1c (test code = 41462) 6.2 % HEMOGLOBIN [id number] 00:00:00 Test Item Value Reference Range Interpretation Comments HEMOGLOBIN A1c (test code = 82734) 6.2 % LIPID [id number] 00:00:00 Test Item Value Reference Range Interpretation Comments CHOLESTEROL (test code = 2210) 196 MG/DL TRIGLYCERIDES (test code = 2232) 486 MG/DL HDL CHOLESTEROL (test code = 44 MG/DL 2220) CALC LDL CHOL (test code = 2237) (NOTE) MG/DL RISK RATIO LDL/HDL (test code = (NOTE) RATIO 2238) LIPID [id number] 00:00:00 Test Item Value Reference Range Interpretation Comments CHOLESTEROL (test code = 2210) 196 MG/DL TRIGLYCERIDES (test code = 2232) 486 MG/DL HDL CHOLESTEROL (test code = 44 MG/DL 2220) CALC LDL CHOL (test code = 2237) (NOTE) MG/DL RISK RATIO LDL/HDL (test code = (NOTE) RATIO 2238) COMPREHENSIVE METABOLIC [id number] 00:00:00 Test Item Value Reference Range Interpretation Comments GLUCOSE (test code = 2217) 117 MG/DL BUN (test code = 2208) 54 MG/DL CREATININE (test code = 2214) 11.27 MG/DL eGFR (2020 CKD-EPI) (test code 5 ML/MIN/1.73 = 59117) CALC BUN/CREAT (test code = 5 RATIO [...] code = 2219) 8 U/L COMPREHENSIVE METABOLIC [id number] 00:00:00 Test Item Value Reference Range Interpretation Comments GLUCOSE (test code = 2217) 117 MG/DL BUN (test code = 2208) 54 MG/DL CREATININE (test code = 2214) 11.27 MG/DL eGFR (2020 CKD-EPI) (test code 5 ML/MIN/1.73 = 95255) CALC BUN/CREAT (test code = 5 RATIO [...] ALT (test code = 2219) 8 U/L [id number] 00:00:00 Test Item Value Reference Range Interpretation Comments TSH, THIRD GENERATION (test 82.000 UIU/ML code = 2821) [id number] 00:00:00 Test Item Value Reference Range Interpretation Comments TSH, THIRD GENERATION (test 82.000 UIU/ML code = 2821) [id number] 00:00:00 Test Item Value Reference Range Interpretation Comments TSH, THIRD GENERATION (test 82.000 UIU/ML code = 2821) HIV AB/AG COMBO RFLX [id number] 00:00:00 Test Item Value Reference Range Interpretation Comments HIV 1/2 4TH GEN, RFLX CONF (test NON-REACTIVE code = 3514) HIV AB/AG COMBO RFLX [id number] 00:00:00 Test Item Value Reference Range Interpretation Comments HIV 1/2 4TH GEN, RFLX CONF (test NON-REACTIVE code = 3514) ACUTE HEPATITIS [id number] 00:00:00 Test Item Value Reference Range Interpretation Comments HEPATITIS A IgM (test code = NON-REACTIVE 47472) HEPATITIS B CORE IgM (test code NON-REACTIVE = 4644) HEPATITIS B SURF AG (test code = NON-REACTIVE 2739) HEPATITIS C ANTIBODY (test code NON-REACTIVE = 4675) INTERPRETATION HEPATITIS A: (NOTE) (test code = 2552) INTERPRETATION HEPATITIS B: (NOTE) (test code = 72004) INTERPRETATION HEPATITIS C: (NOTE) (test code = 08700) ACUTE HEPATITIS [id number] 00:00:00 Test Item Value Reference Range Interpretation Comments HEPATITIS A IgM (test code = NON-REACTIVE 26637) HEPATITIS B CORE IgM (test code NON-REACTIVE = 4644) HEPATITIS B SURF AG (test code = NON-REACTIVE 2739) HEPATITIS C ANTIBODY (test code NON-REACTIVE = 4675) INTERPRETATION HEPATITIS A: (NOTE) (test code = 2552) INTERPRETATION HEPATITIS B: (NOTE) (test code = 91395) INTERPRETATION HEPATITIS C: (NOTE) (test code = 05308) CBC W/AUTO [id number] 00:00:00 Test Item Value Reference Range Interpretation [...] NUCLEATED RBCS (test code = 0.00 K/UL 44059) CBC W/AUTO [id number] 00:00:00 Test Item Value Reference Range Interpretation [...] NUCLEATED RBCS (test code = 0.00 K/UL 80528) CBC W/AUTO [id number] 00:00:00 Test Item Value Reference Range Interpretation [...] NUCLEATED RBCS (test code = 0.00 K/UL 51530) HEMOGLOBIN [id number] 00:00:00 Test Item Value Reference Range Interpretation Comments HEMOGLOBIN A1c (test code = 12683) 6.2 % HEMOGLOBIN [id number] 00:00:00 Test Item Value Reference Range Interpretation Comments HEMOGLOBIN A1c (test code = 03499) 6.2 % HEMOGLOBIN [id number] 00:00:00 Test Item Value Reference Range Interpretation Comments HEMOGLOBIN A1c (test code = 55068) 6.2 % LIPID [id number] 00:00:00 Test Item Value Reference Range Interpretation Comments CHOLESTEROL (test code = 2210) 196 MG/DL TRIGLYCERIDES (test code = 2232) 486 MG/DL HDL CHOLESTEROL (test code = 44 MG/DL 2220) CALC LDL CHOL (test code = 2237) (NOTE) MG/DL RISK RATIO LDL/HDL (test code = (NOTE) RATIO 2238) LIPID [id number] 00:00:00 Test Item Value Reference Range Interpretation Comments CHOLESTEROL (test code = 2210) 196 MG/DL TRIGLYCERIDES (test code = 2232) 486 MG/DL HDL CHOLESTEROL (test code = 44 MG/DL 2220) CALC LDL CHOL (test code = 2237) (NOTE) MG/DL RISK RATIO LDL/HDL (test code = (NOTE) RATIO 2238) COMPREHENSIVE METABOLIC [id number] 00:00:00 Test Item Value Reference Range Interpretation Comments GLUCOSE (test code = 2217) 117 MG/DL BUN (test code = 2208) 54 MG/DL CREATININE (test code = 2214) 11.27 MG/DL eGFR (2020 CKD-EPI) (test code 5 ML/MIN/1.73 = 85455) CALC BUN/CREAT (test code = 5 RATIO [...] code = 2219) 8 U/L COMPREHENSIVE METABOLIC [id number] 00:00:00 Test Item Value Reference Range Interpretation Comments GLUCOSE (test code = 2217) 117 MG/DL BUN (test code = 2208) 54 MG/DL CREATININE (test code = 2214) 11.27 MG/DL eGFR (2020 CKD-EPI) (test code 5 ML/MIN/1.73 = 77020) CALC BUN/CREAT (test code = 5 RATIO [...] ALT (test code = 2219) 8 U/L [id number] 00:00:00 Test Item Value Reference Range Interpretation Comments TSH, THIRD GENERATION (test 82.000 UIU/ML code = 2821) [id number] 00:00:00 Test Item Value Reference Range Interpretation Comments TSH, THIRD GENERATION (test 82.000 UIU/ML code = 2821) [id number] 00:00:00 Test Item Value Reference Range Interpretation Comments TSH, THIRD GENERATION (test 82.000 UIU/ML code = 2821) HIV AB/AG COMBO RFLX [id number] 00:00:00 Test Item Value Reference Range Interpretation Comments HIV 1/2 4TH GEN, RFLX CONF (test NON-REACTIVE code = 3514) HIV AB/AG COMBO RFLX [id number] 00:00:00 Test Item Value Reference Range Interpretation Comments HIV 1/2 4TH GEN, RFLX CONF (test NON-REACTIVE code = 3514) ACUTE HEPATITIS [id number] 00:00:00 Test Item Value Reference Range Interpretation Comments HEPATITIS A IgM (test code = NON-REACTIVE 74029) HEPATITIS B CORE IgM (test code NON-REACTIVE = 4644) HEPATITIS B SURF AG (test code = NON-REACTIVE 2739) HEPATITIS C ANTIBODY (test code NON-REACTIVE = 4675) INTERPRETATION HEPATITIS A: (NOTE) (test code = 2552) INTERPRETATION HEPATITIS B: (NOTE) (test code = 31183) INTERPRETATION HEPATITIS C: (NOTE) (test code = 37150) ACUTE HEPATITIS [id number] 00:00:00 Test Item Value Reference Range Interpretation Comments HEPATITIS A IgM (test code = NON-REACTIVE 82127) HEPATITIS B CORE IgM (test code NON-REACTIVE = 4644) HEPATITIS B SURF AG (test code = NON-REACTIVE 2739) HEPATITIS C ANTIBODY (test code NON-REACTIVE = 4675) INTERPRETATION HEPATITIS A: (NOTE) (test code = 2552) INTERPRETATION HEPATITIS B: (NOTE) (test code = 56402) INTERPRETATION HEPATITIS C: (NOTE) (test code = 36489) CBC W/AUTO [id number] 00:00:00 Test Item Value Reference Range Interpretation [...] NUCLEATED RBCS (test code = 0.00 K/UL 02713) CBC W/AUTO [id number] 00:00:00 Test Item Value Reference Range Interpretation [...] NUCLEATED RBCS (test code = 0.00 K/UL 66139) CBC W/AUTO [id number] 00:00:00 Test Item Value Reference Range Interpretation [...] NUCLEATED RBCS (test code = 0.00 K/UL 08144) CBC W/AUTO [id number] 00:00:00 Test Item Value Reference Range Interpretation [...] NUCLEATED RBCS (test code = 0.00 K/UL 63048) CBC W/AUTO [id number] 00:00:00 Test Item Value Reference Range Interpretation [...] NUCLEATED RBCS (test code = 0.00 K/UL 36853) HEMOGLOBIN [id number] 00:00:00 Test Item Value Reference Range Interpretation Comments HEMOGLOBIN A1c (test code = 69299) 6.2 % HEMOGLOBIN [id number] 00:00:00 Test Item Value Reference Range Interpretation Comments HEMOGLOBIN A1c (test code = 26863) 6.2 % HEMOGLOBIN [id number] 00:00:00 Test Item Value Reference Range Interpretation Comments HEMOGLOBIN A1c (test code = 04893) 6.2 % LIPID [id number] 00:00:00 Test Item Value Reference Range Interpretation Comments CHOLESTEROL (test code = 2210) 196 MG/DL TRIGLYCERIDES (test code = 2232) 486 MG/DL HDL CHOLESTEROL (test code = 44 MG/DL 2220) CALC LDL CHOL (test code = 2237) (NOTE) MG/DL RISK RATIO LDL/HDL (test code = (NOTE) RATIO 2238) LIPID [id number] 00:00:00 Test Item Value Reference Range Interpretation Comments CHOLESTEROL (test code = 2210) 196 MG/DL TRIGLYCERIDES (test code = 2232) 486 MG/DL HDL CHOLESTEROL (test code = 44 MG/DL 2220) CALC LDL CHOL (test code = 2237) (NOTE) MG/DL RISK RATIO LDL/HDL (test code = (NOTE) RATIO 2238) COMPREHENSIVE METABOLIC [id number] 00:00:00 Test Item Value Reference Range Interpretation Comments GLUCOSE (test code = 2217) 117 MG/DL BUN (test code = 2208) 54 MG/DL CREATININE (test code = 2214) 11.27 MG/DL eGFR (2020 CKD-EPI) (test code 5 ML/MIN/1.73 = 26382) CALC BUN/CREAT (test code = 5 RATIO [...] code = 2219) 8 U/L COMPREHENSIVE METABOLIC [id number] 00:00:00 Test Item Value Reference Range Interpretation Comments GLUCOSE (test code = 2217) 117 MG/DL BUN (test code = 2208) 54 MG/DL CREATININE (test code = 2214) 11.27 MG/DL eGFR (2020 CKD-EPI) (test code 5 ML/MIN/1.73 = 79178) CALC BUN/CREAT (test code = 5 RATIO [...] ALT (test code = 2219) 8 U/L [id number] 00:00:00 Test Item Value Reference Range Interpretation Comments TSH, THIRD GENERATION (test 82.000 UIU/ML code = 2821) [id number] 00:00:00 Test Item Value Reference Range Interpretation Comments TSH, THIRD GENERATION (test 82.000 UIU/ML code = 2821) [id number] 00:00:00 Test Item Value Reference Range Interpretation Comments TSH, THIRD GENERATION (test 82.000 UIU/ML code = 2821) HIV AB/AG COMBO RFLX [id number] 00:00:00 Test Item Value Reference Range Interpretation Comments HIV 1/2 4TH GEN, RFLX CONF (test NON-REACTIVE code = 3514) HIV AB/AG COMBO RFLX [id number] 00:00:00 Test Item Value Reference Range Interpretation Comments HIV 1/2 4TH GEN, RFLX CONF (test NON-REACTIVE code = 3514) ACUTE HEPATITIS [id number] 00:00:00 Test Item Value Reference Range Interpretation Comments HEPATITIS A IgM (test code = NON-REACTIVE 68110) HEPATITIS B CORE IgM (test code NON-REACTIVE = 5222) HEPATITIS B SURF AG (test code = NON-REACTIVE 9709) HEPATITIS C ANTIBODY (test code NON-REACTIVE = 7985) INTERPRETATION HEPATITIS A: (NOTE) (test code = 7562) INTERPRETATION HEPATITIS B: (NOTE) (test code = 28309) INTERPRETATION HEPATITIS C: (NOTE) (test code = 91725) ACUTE HEPATITIS [id number] 00:00:00 Test Item Value Reference Range Interpretation Comments HEPATITIS A IgM (test code = NON-REACTIVE 24755) HEPATITIS B CORE IgM (test code NON-REACTIVE = 4644) HEPATITIS B SURF AG (test code = NON-REACTIVE 0769) HEPATITIS C ANTIBODY (test code NON-REACTIVE = 4666) INTERPRETATION HEPATITIS A: (NOTE) (test code = 2552) INTERPRETATION HEPATITIS B: (NOTE) (test code = 51798) INTERPRETATION HEPATITIS C: (NOTE) (test code = 86618) HEMOGLOBIN [id number] 00:00:00 Test Item Value Reference Range Interpretation Comments HEMOGLOBIN A1c (test code = 60761) 6.2 % HEMOGLOBIN [id number] 00:00:00 Test Item Value Reference Range Interpretation Comments HEMOGLOBIN A1c (test code = 19396) 6.2 % LIPID [id number] 00:00:00 Test Item Value Reference Range Interpretation Comments CHOLESTEROL (test code = 2210) 196 MG/DL TRIGLYCERIDES (test code = 2232) 486 MG/DL HDL CHOLESTEROL (test code = 44 MG/DL 0) CALC LDL CHOL (test code = 2237) (NOTE) MG/DL RISK RATIO LDL/HDL (test code = (NOTE) RATIO 2238) COMPREHENSIVE METABOLIC [id number] 00:00:00 Test Item Value Reference Range Interpretation Comments GLUCOSE (test code = 2217) 117 MG/DL BUN (test code = 2208) 54 MG/DL CREATININE (test code = 2214) 11.27 MG/DL eGFR (2020 CKD-EPI) (test code 5 ML/MIN/1.73 = 01898) CALC BUN/CREAT (test code = 5 RATIO [...] code = 2219) 8 U/L CBC W/AUTO [id number] 00:00:00 Test Item Value Reference Range Interpretation [...] NUCLEATED RBCS (test code = 0.00 K/UL 81920) CBC W/AUTO [id number] 00:00:00 Test Item Value Reference Range Interpretation [...] NUCLEATED RBCS (test code = 0.00 K/UL 22722) CBC W/AUTO [id number] 00:00:00 Test Item Value Reference Range Interpretation [...] NUCLEATED RBCS (test code = 0.00 K/UL 46797) [id number] 00:00:00 Test Item Value Reference Range Interpretation Comments TSH, THIRD GENERATION (test 82.000 UIU/ML code = 2821) HEMOGLOBIN [id number] 00:00:00 Test Item Value Reference Range Interpretation Comments HEMOGLOBIN A1c (test code = 36454) 6.2 % HEMOGLOBIN [id number] 00:00:00 Test Item Value Reference Range Interpretation Comments HEMOGLOBIN A1c (test code = 03543) 6.2 % [id number] 00:00:00 Test Item Value Reference Range Interpretation Comments TSH, THIRD GENERATION (test 82.000 UIU/ML code = 2821) HEMOGLOBIN [id number] 00:00:00 Test Item Value Reference Range Interpretation Comments HEMOGLOBIN A1c (test code = 77402) 6.2 % HIV AB/AG COMBO RFLX [id number] 00:00:00 Test Item Value Reference Range Interpretation Comments HIV 1/2 4TH GEN, RFLX CONF (test NON-REACTIVE code = 3514) LIPID [id number] 00:00:00 Test Item Value Reference Range Interpretation Comments CHOLESTEROL (test code = 2210) 196 MG/DL TRIGLYCERIDES (test code = 2232) 486 MG/DL HDL CHOLESTEROL (test code = 44 MG/DL 2220) CALC LDL CHOL (test code = 2237) (NOTE) MG/DL RISK RATIO LDL/HDL (test code = (NOTE) RATIO 2238) LIPID [id number] 00:00:00 Test Item Value Reference Range Interpretation Comments CHOLESTEROL (test code = 2210) 196 MG/DL TRIGLYCERIDES (test code = 2232) 486 MG/DL HDL CHOLESTEROL (test code = 44 MG/DL 2220) CALC LDL CHOL (test code = 2237) (NOTE) MG/DL RISK RATIO LDL/HDL (test code = (NOTE) RATIO 2238) ACUTE HEPATITIS [id number] 00:00:00 Test Item Value Reference Range Interpretation Comments HEPATITIS A IgM (test code = NON-REACTIVE 39452) HEPATITIS B CORE IgM (test code NON-REACTIVE = 46) HEPATITIS B SURF AG (test code = NON-REACTIVE 7329) HEPATITIS C ANTIBODY (test code NON-REACTIVE = 4683) INTERPRETATION HEPATITIS A: (NOTE) (test code = 2552) INTERPRETATION HEPATITIS B: (NOTE) (test code = 49890) INTERPRETATION HEPATITIS C: (NOTE) (test code = 68118) COMPREHENSIVE METABOLIC [id number] 00:00:00 Test Item Value Reference Range Interpretation Comments GLUCOSE (test code = 2217) 117 MG/DL BUN (test code = 2208) 54 MG/DL CREATININE (test code = 2214) 11.27 MG/DL eGFR (2020 CKD-EPI) (test code 5 ML/MIN/1.73 = 71538) CALC BUN/CREAT (test code = 5 RATIO [...] code = 2219) 8 U/L COMPREHENSIVE METABOLIC [id number] 00:00:00 Test Item Value Reference Range Interpretation Comments GLUCOSE (test code = 2217) 117 MG/DL BUN (test code = 2208) 54 MG/DL CREATININE (test code = 2214) 11.27 MG/DL eGFR (2020 CKD-EPI) (test code 5 ML/MIN/1.73 = 99671) CALC BUN/CREAT (test code = 5 RATIO [...] ALT (test code = 2219) 8 U/L [id number] 00:00:00 Test Item Value Reference Range Interpretation Comments TSH, THIRD GENERATION (test 82.000 UIU/ML code = 2821) [id number] 00:00:00 Test Item Value Reference Range Interpretation Comments TSH, THIRD GENERATION (test 82.000 UIU/ML code = 2821) [id number] 00:00:00 Test Item Value Reference Range Interpretation Comments TSH, THIRD GENERATION (test 82.000 UIU/ML code = 2821) HIV AB/AG COMBO RFLX [id number] 00:00:00 Test Item Value Reference Range Interpretation Comments HIV 1/2 4TH GEN, RFLX CONF (test NON-REACTIVE code = 3514) HIV AB/AG COMBO RFLX [id number] 00:00:00 Test Item Value Reference Range Interpretation Comments HIV 1/2 4TH GEN, RFLX CONF (test NON-REACTIVE code = 3514) ACUTE HEPATITIS [id number] 00:00:00 Test Item Value Reference Range Interpretation Comments HEPATITIS A IgM (test code = NON-REACTIVE 90730) HEPATITIS B CORE IgM (test code NON-REACTIVE = 4644) HEPATITIS B SURF AG (test code = NON-REACTIVE 4359) HEPATITIS C ANTIBODY (test code NON-REACTIVE = 4675) INTERPRETATION HEPATITIS A: (NOTE) (test code = 2552) INTERPRETATION HEPATITIS B: (NOTE) (test code = 08737) INTERPRETATION HEPATITIS C: (NOTE) (test code = 49121) ACUTE HEPATITIS [id number] 00:00:00 Test Item Value Reference Range Interpretation Comments HEPATITIS A IgM (test code = NON-REACTIVE 93665) HEPATITIS B CORE IgM (test code NON-REACTIVE = 4644) HEPATITIS B SURF AG (test code = NON-REACTIVE 0499) HEPATITIS C ANTIBODY (test code NON-REACTIVE = 4671) INTERPRETATION HEPATITIS A: (NOTE) (test code = 2552) INTERPRETATION HEPATITIS B: (NOTE) (test code = 63903) INTERPRETATION HEPATITIS C: (NOTE) (test code = 32994) CBC W/AUTO [id number] 00:00:00 Test Item Value Reference Range Interpretation [...] NUCLEATED RBCS (test code = 0.00 K/UL 35060) CBC W/AUTO [id number] 00:00:00 Test Item Value Reference Range Interpretation [...] NUCLEATED RBCS (test code = 0.00 K/UL 35175) CBC W/AUTO [id number] 00:00:00 Test Item Value Reference Range Interpretation [...] NUCLEATED RBCS (test code = 0.00 K/UL 08978) HEMOGLOBIN [id number] 00:00:00 Test Item Value Reference Range Interpretation Comments HEMOGLOBIN A1c (test code = 20561) 6.2 % HEMOGLOBIN [id number] 00:00:00 Test Item Value Reference Range Interpretation Comments HEMOGLOBIN A1c (test code = 15679) 6.2 % HEMOGLOBIN [id number] 00:00:00 Test Item Value Reference Range Interpretation Comments HEMOGLOBIN A1c (test code = 42818) 6.2 % LIPID [id number] 00:00:00 Test Item Value Reference Range Interpretation Comments CHOLESTEROL (test code = 2210) 196 MG/DL TRIGLYCERIDES (test code = 2232) 486 MG/DL HDL CHOLESTEROL (test code = 44 MG/DL 2220) CALC LDL CHOL (test code = 2237) (NOTE) MG/DL RISK RATIO LDL/HDL (test code = (NOTE) RATIO 2238) LIPID [id number] 00:00:00 Test Item Value Reference Range Interpretation Comments CHOLESTEROL (test code = 2210) 196 MG/DL TRIGLYCERIDES (test code = 2232) 486 MG/DL HDL CHOLESTEROL (test code = 44 MG/DL 2220) CALC LDL CHOL (test code = 2237) (NOTE) MG/DL RISK RATIO LDL/HDL (test code = (NOTE) RATIO 2238) COMPREHENSIVE METABOLIC [id number] 00:00:00 Test Item Value Reference Range Interpretation Comments GLUCOSE (test code = 2217) 117 MG/DL BUN (test code = 2208) 54 MG/DL CREATININE (test code = 2214) 11.27 MG/DL eGFR (2020 CKD-EPI) (test code 5 ML/MIN/1.73 = 88431) CALC BUN/CREAT (test code = 5 RATIO [...] code = 2219) 8 U/L COMPREHENSIVE METABOLIC [id number] 00:00:00 Test Item Value Reference Range Interpretation Comments GLUCOSE (test code = 2217) 117 MG/DL BUN (test code = 2208) 54 MG/DL CREATININE (test code = 2214) 11.27 MG/DL eGFR (2020 CKD-EPI) (test code 5 ML/MIN/1.73 = 86544) CALC BUN/CREAT (test code = 5 RATIO [...] ALT (test code = 2219) 8 U/L [id number] 00:00:00 Test Item Value Reference Range Interpretation Comments TSH, THIRD GENERATION (test 82.000 UIU/ML code = 2821) [id number] 00:00:00 Test Item Value Reference Range Interpretation Comments TSH, THIRD GENERATION (test 82.000 UIU/ML code = 2821) [id number] 00:00:00 Test Item Value Reference Range Interpretation Comments TSH, THIRD GENERATION (test 82.000 UIU/ML code = 2821) HIV AB/AG COMBO RFLX [id number] 00:00:00 Test Item Value Reference Range Interpretation Comments HIV 1/2 4TH GEN, RFLX CONF (test NON-REACTIVE code = 3514) HIV AB/AG COMBO RFLX [id number] 00:00:00 Test Item Value Reference Range Interpretation Comments HIV 1/2 4TH GEN, RFLX CONF (test NON-REACTIVE code = 3514) ACUTE HEPATITIS [id number] 00:00:00 Test Item Value Reference Range Interpretation Comments HEPATITIS A IgM (test code = NON-REACTIVE 29617) HEPATITIS B CORE IgM (test code NON-REACTIVE = 4644) HEPATITIS B SURF AG (test code = NON-REACTIVE 2739) HEPATITIS C ANTIBODY (test code NON-REACTIVE = 4675) INTERPRETATION HEPATITIS A: (NOTE) (test code = 2552) INTERPRETATION HEPATITIS B: (NOTE) (test code = 69684) INTERPRETATION HEPATITIS C: (NOTE) (test code = 93226) ACUTE HEPATITIS [id number] 00:00:00 Test Item Value Reference Range Interpretation Comments HEPATITIS A IgM (test code = NON-REACTIVE 58878) HEPATITIS B CORE IgM (test code NON-REACTIVE = 4644) HEPATITIS B SURF AG (test code = NON-REACTIVE 2739) HEPATITIS C ANTIBODY (test code NON-REACTIVE = 4675) INTERPRETATION HEPATITIS A: (NOTE) (test code = 2552) INTERPRETATION HEPATITIS B: (NOTE) (test code = 09107) INTERPRETATION HEPATITIS C: (NOTE) (test code = 14359) CBC W/AUTO [id number] 00:00:00 Test Item Value Reference Range Interpretation [...] NUCLEATED RBCS (test code = 0.00 K/UL 51228) CBC W/AUTO [id number] 00:00:00 Test Item Value Reference Range Interpretation [...] NUCLEATED RBCS (test code = 0.00 K/UL 07038) CBC W/AUTO [id number] 00:00:00 Test Item Value Reference Range Interpretation [...] NUCLEATED RBCS (test code = 0.00 K/UL 68486) HEMOGLOBIN [id number] 00:00:00 Test Item Value Reference Range Interpretation Comments HEMOGLOBIN A1c (test code = 73389) 6.2 % HEMOGLOBIN [id number] 00:00:00 Test Item Value Reference Range Interpretation Comments HEMOGLOBIN A1c (test code = 64942) 6.2 % HEMOGLOBIN [id number] 00:00:00 Test Item Value Reference Range Interpretation Comments HEMOGLOBIN A1c (test code = 33564) 6.2 % LIPID [id number] 00:00:00 Test Item Value Reference Range Interpretation Comments CHOLESTEROL (test code = 2210) 196 MG/DL TRIGLYCERIDES (test code = 2232) 486 MG/DL HDL CHOLESTEROL (test code = 44 MG/DL 2220) CALC LDL CHOL (test code = 2237) (NOTE) MG/DL RISK RATIO LDL/HDL (test code = (NOTE) RATIO 2238) LIPID [id number] 00:00:00 Test Item Value Reference Range Interpretation Comments CHOLESTEROL (test code = 2210) 196 MG/DL TRIGLYCERIDES (test code = 2232) 486 MG/DL HDL CHOLESTEROL (test code = 44 MG/DL 2220) CALC LDL CHOL (test code = 2237) (NOTE) MG/DL RISK RATIO LDL/HDL (test code = (NOTE) RATIO 2238) COMPREHENSIVE METABOLIC [id number] 00:00:00 Test Item Value Reference Range Interpretation Comments GLUCOSE (test code = 2217) 117 MG/DL BUN (test code = 2208) 54 MG/DL CREATININE (test code = 2214) 11.27 MG/DL eGFR (2020 CKD-EPI) (test code 5 ML/MIN/1.73 = 38384) CALC BUN/CREAT (test code = 5 RATIO [...] code = 2219) 8 U/L COMPREHENSIVE METABOLIC [id number] 00:00:00 Test Item Value Reference Range Interpretation Comments GLUCOSE (test code = 2217) 117 MG/DL BUN (test code = 2208) 54 MG/DL CREATININE (test code = 2214) 11.27 MG/DL eGFR (2020 CKD-EPI) (test code 5 ML/MIN/1.73 = 63802) CALC BUN/CREAT (test code = 5 RATIO [...] ALT (test code = 2219) 8 U/L [id number] 00:00:00 Test Item Value Reference Range Interpretation Comments TSH, THIRD GENERATION (test 82.000 UIU/ML code = 2821) [id number] 00:00:00 Test Item Value Reference Range Interpretation Comments TSH, THIRD GENERATION (test 82.000 UIU/ML code = 2821) [id number] 00:00:00 Test Item Value Reference Range Interpretation Comments TSH, THIRD GENERATION (test 82.000 UIU/ML code = 2821) HIV AB/AG COMBO RFLX [id number] 00:00:00 Test Item Value Reference Range Interpretation Comments HIV 1/2 4TH GEN, RFLX CONF (test NON-REACTIVE code = 3514) HIV AB/AG COMBO RFLX [id number] 00:00:00 Test Item Value Reference Range Interpretation Comments HIV 1/2 4TH GEN, RFLX CONF (test NON-REACTIVE code = 3514) ACUTE HEPATITIS [id number] 00:00:00 Test Item Value Reference Range Interpretation Comments HEPATITIS A IgM (test code = NON-REACTIVE 27883) HEPATITIS B CORE IgM (test code NON-REACTIVE = 1489) HEPATITIS B SURF AG (test code = NON-REACTIVE 7459) HEPATITIS C ANTIBODY (test code NON-REACTIVE = 1966) INTERPRETATION HEPATITIS A: (NOTE) (test code = 2552) INTERPRETATION HEPATITIS B: (NOTE) (test code = 70450) INTERPRETATION HEPATITIS C: (NOTE) (test code = 79582) ACUTE HEPATITIS [id number] 00:00:00 Test Item Value Reference Range Interpretation Comments HEPATITIS A IgM (test code = NON-REACTIVE 32754) HEPATITIS B CORE IgM (test code NON-REACTIVE = 4644) HEPATITIS B SURF AG (test code = NON-REACTIVE 8659) HEPATITIS C ANTIBODY (test code NON-REACTIVE = 4675) INTERPRETATION HEPATITIS A: (NOTE) (test code = 2552) INTERPRETATION HEPATITIS B: (NOTE) (test code = 03466) INTERPRETATION HEPATITIS C: (NOTE) (test code = 49120) CBC W/AUTO [id number] 00:00:00 Test Item Value Reference Range Interpretation [...] NUCLEATED RBCS (test code = 0.00 K/UL 93678) CBC W/AUTO [id number] 00:00:00 Test Item Value Reference Range Interpretation [...] NUCLEATED RBCS (test code = 0.00 K/UL 85604) CBC W/AUTO [id number] 00:00:00 Test Item Value Reference Range Interpretation [...] NUCLEATED RBCS (test code = 0.00 K/UL 16618) HEMOGLOBIN [id number] 00:00:00 Test Item Value Reference Range Interpretation Comments HEMOGLOBIN A1c (test code = 73316) 6.2 % HEMOGLOBIN [id number] 00:00:00 Test Item Value Reference Range Interpretation Comments HEMOGLOBIN A1c (test code = 80030) 6.2 % HEMOGLOBIN [id number] 00:00:00 Test Item Value Reference Range Interpretation Comments HEMOGLOBIN A1c (test code = 70174) 6.2 % LIPID [id number] 00:00:00 Test Item Value Reference Range Interpretation Comments CHOLESTEROL (test code = 2210) 196 MG/DL TRIGLYCERIDES (test code = 2232) 486 MG/DL HDL CHOLESTEROL (test code = 44 MG/DL 2220) CALC LDL CHOL (test code = 2237) (NOTE) MG/DL RISK RATIO LDL/HDL (test code = (NOTE) RATIO 2238) LIPID [id number] 00:00:00 Test Item Value Reference Range Interpretation Comments CHOLESTEROL (test code = 2210) 196 MG/DL TRIGLYCERIDES (test code = 2232) 486 MG/DL HDL CHOLESTEROL (test code = 44 MG/DL 2220) CALC LDL CHOL (test code = 2237) (NOTE) MG/DL RISK RATIO LDL/HDL (test code = (NOTE) RATIO 2238) COMPREHENSIVE METABOLIC [id number] 00:00:00 Test Item Value Reference Range Interpretation Comments GLUCOSE (test code = 2217) 117 MG/DL BUN (test code = 2208) 54 MG/DL CREATININE (test code = 2214) 11.27 MG/DL eGFR (2020 CKD-EPI) (test code 5 ML/MIN/1.73 = 16577) CALC BUN/CREAT (test code = 5 RATIO [...] code = 2219) 8 U/L COMPREHENSIVE METABOLIC [id number] 00:00:00 Test Item Value Reference Range Interpretation Comments GLUCOSE (test code = 2217) 117 MG/DL BUN (test code = 2208) 54 MG/DL CREATININE (test code = 2214) 11.27 MG/DL eGFR (2020 CKD-EPI) (test code 5 ML/MIN/1.73 = 69487) CALC BUN/CREAT (test code = 5 RATIO [...] ALT (test code = 2219) 8 U/L [id number] 00:00:00 Test Item Value Reference Range Interpretation Comments TSH, THIRD GENERATION (test 82.000 UIU/ML code = 2821) [id number] 00:00:00 Test Item Value Reference Range Interpretation Comments TSH, THIRD GENERATION (test 82.000 UIU/ML code = 2821) [id number] 00:00:00 Test Item Value Reference Range Interpretation Comments TSH, THIRD GENERATION (test 82.000 UIU/ML code = 2821) HIV AB/AG COMBO RFLX [id number] 00:00:00 Test Item Value Reference Range Interpretation Comments HIV 1/2 4TH GEN, RFLX CONF (test NON-REACTIVE code = 3514) HIV AB/AG COMBO RFLX [id number] 00:00:00 Test Item Value Reference Range Interpretation Comments HIV 1/2 4TH GEN, RFLX CONF (test NON-REACTIVE code = 3514) ACUTE HEPATITIS [id number] 00:00:00 Test Item Value Reference Range Interpretation Comments HEPATITIS A IgM (test code = NON-REACTIVE 16101) HEPATITIS B CORE IgM (test code NON-REACTIVE = 4644) HEPATITIS B SURF AG (test code = NON-REACTIVE 2739) HEPATITIS C ANTIBODY (test code NON-REACTIVE = 4675) INTERPRETATION HEPATITIS A: (NOTE) (test code = 2552) INTERPRETATION HEPATITIS B: (NOTE) (test code = 53979) INTERPRETATION HEPATITIS C: (NOTE) (test code = 77168) ACUTE HEPATITIS [id number] 00:00:00 Test Item Value Reference Range Interpretation Comments HEPATITIS A IgM (test code = NON-REACTIVE 99952) HEPATITIS B CORE IgM (test code NON-REACTIVE = 4644) HEPATITIS B SURF AG (test code = NON-REACTIVE 2739) HEPATITIS C ANTIBODY (test code NON-REACTIVE = 4675) INTERPRETATION HEPATITIS A: (NOTE) (test code = 2552) INTERPRETATION HEPATITIS B: (NOTE) (test code = 88832) INTERPRETATION HEPATITIS C: (NOTE) (test code = 09538) TSH, THIRD [id number] 05:58:13 Test Item Value Reference Range Interpretation Comments TSH, THIRD 33.700 UIU/ML 0.400-4.100 H UNLESS OTHERW ISE GENERATION (test INDICATED, ALL code = 2821) TESTING PERFORM ED ATCLINICAL PATH [facility], [place]. [address] [place] [address] [facility] DIRECTOR: LATOYA MCCALL M.D. [place] NUMBER [id number] CAP ACCREDITATION N O. [id number] HEMOGLOBIN [id number] 02:44:08 Test Item Value Reference Range Interpretation Comments HEMOGLOBIN A1c (test 7.0 % 4.2-5.6 H AMERIC AN DIABETES code = 08279) ASSOCIATION [employer] FOR HGB A1C: PREDIABETES/INC REASED [...] Interpretation Comments HEMOGLOBIN A1c (test code = 72411) 7.0 % HEMOGLOBIN A1c [ADDED]2021-05-16 00:00:00 Test Item Value Reference Range Interpretation Comments HEMOGLOBIN A1c (test code = 00082) 7.0 % HEMOGLOBIN A1c [ADDED]2021-05-16 00:00:00 Test Item Value Reference Range Interpretation Comments HEMOGLOBIN A1c (test code = 68140) 7.0 % TSH, THIRD GENERATION [ADDED]2021-05-16 00:00:00 [...] Interpretation Comments HEMOGLOBIN A1c (test code = 61790) 7.0 % HEMOGLOBIN A1c [ADDED]2021-05-16 00:00:00 Test Item Value Reference Range Interpretation Comments HEMOGLOBIN A1c (test code = 21458) 7.0 % HEMOGLOBIN A1c [ADDED]2021-05-16 00:00:00 Test Item Value Reference Range Interpretation Comments HEMOGLOBIN A1c (test code = 88066) 7.0 % TSH, THIRD GENERATION [ADDED]2021-05-16 00:00:00 [...] Interpretation Comments HEMOGLOBIN A1c (test code = 57111) 7.0 % HEMOGLOBIN A1c [ADDED]2021-05-16 00:00:00 Test Item Value Reference Range Interpretation Comments HEMOGLOBIN A1c (test code = 70287) 7.0 % HEMOGLOBIN A1c [ADDED]2021-05-16 00:00:00 Test Item Value Reference Range Interpretation Comments HEMOGLOBIN A1c (test code = 38504) 7.0 % HEMOGLOBIN A1c [ADDED]2021-05-16 00:00:00 Test Item Value Reference Range Interpretation Comments HEMOGLOBIN A1c (test code = 62097) 7.0 % HEMOGLOBIN A1c [ADDED]2021-05-16 00:00:00 Test Item Value Reference Range Interpretation Comments HEMOGLOBIN A1c (test code = 32337) 7.0 % TSH, THIRD GENERATION [ADDED]2021-05-16 00:00:00 [...] Interpretation Comments HEMOGLOBIN A1c (test code = 96651) 7.0 % HEMOGLOBIN A1c [ADDED]2021-05-16 00:00:00 Test Item Value Reference Range Interpretation Comments HEMOGLOBIN A1c (test code = 59217) 7.0 % HEMOGLOBIN A1c [ADDED]2021-05-16 00:00:00 Test Item Value Reference Range Interpretation Comments HEMOGLOBIN A1c (test code = 07507) 7.0 % TSH, THIRD GENERATION [ADDED]2021-05-16 00:00:00 [...] Interpretation Comments HEMOGLOBIN A1c (test code = 80866) 7.0 % HEMOGLOBIN A1c [ADDED]2021-05-16 00:00:00 Test Item Value Reference Range Interpretation Comments HEMOGLOBIN A1c (test code = 68495) 7.0 % HEMOGLOBIN A1c [ADDED]2021-05-16 00:00:00 Test Item Value Reference Range Interpretation Comments HEMOGLOBIN A1c (test code = 31798) 7.0 % TSH, THIRD GENERATION [ADDED]2021-05-16 00:00:00 [...] Interpretation Comments HEMOGLOBIN A1c (test code = 34733) 7.0 % HEMOGLOBIN A1c [ADDED]2021-05-16 00:00:00 Test Item Value Reference Range Interpretation Comments HEMOGLOBIN A1c (test code = 40059) 7.0 % HEMOGLOBIN A1c [ADDED]2021-05-16 00:00:00 Test Item Value Reference Range Interpretation Comments HEMOGLOBIN A1c (test code = 05197) 7.0 % TSH, THIRD GENERATION [ADDED]2021-05-16 00:00:00 [...] Interpretation Comments HEMOGLOBIN A1c (test code = 31508) 7.0 % HEMOGLOBIN A1c [ADDED]2021-05-16 00:00:00 Test Item Value Reference Range Interpretation Comments HEMOGLOBIN A1c (test code = 04482) 7.0 % HEMOGLOBIN A1c [ADDED]2021-05-16 00:00:00 Test Item Value Reference Range Interpretation Comments HEMOGLOBIN A1c (test code = 57244) 7.0 % TSH, THIRD GENERATION [ADDED]2021-05-16 00:00:00 [...] 33.700 UIU/ML code = 2821) CBC W/AUTO [id number] 00:00:00 Test Item Value Reference Range Interpretation [...] NUCLEATED RBCS (test code = 0.00 K/UL 49607) CBC W/AUTO [id number] 00:00:00 Test Item Value Reference Range Interpretation [...] NUCLEATED RBCS (test code = 0.00 K/UL 32329) CBC W/AUTO [id number] 00:00:00 Test Item Value Reference Range Interpretation [...] NUCLEATED RBCS (test code = 0.00 K/UL 33242) COMPREHENSIVE METABOLIC [id number] 00:00:00 Test Item Value Reference Range Interpretation Comments GLUCOSE (test code = 2217) 317 MG/DL BUN (test code = 2208) 41 MG/DL CREATININE (test code = 2214) 6.82 MG/DL eGFR (2020 CKD-EPI) (test code 8 ML/MIN/1.73 = 67335) CALC BUN/CREAT (test code = 6 RATIO [...] code = 2219) 22 U/L COMPREHENSIVE METABOLIC [id number] 00:00:00 Test Item Value Reference Range Interpretation Comments GLUCOSE (test code = 2217) 317 MG/DL BUN (test code = 2208) 41 MG/DL CREATININE (test code = 2214) 6.82 MG/DL eGFR (2020 CKD-EPI) (test code 8 ML/MIN/1.73 = 81419) CALC BUN/CREAT (test code = 6 RATIO [...] code = 2219) 22 U/L CBC W/AUTO [id number] 00:00:00 Test Item Value Reference Range Interpretation [...] NUCLEATED RBCS (test code = 0.00 K/UL 02697) CBC W/AUTO [id number] 00:00:00 Test Item Value Reference Range Interpretation [...] NUCLEATED RBCS (test code = 0.00 K/UL 11631) CBC W/AUTO [id number] 00:00:00 Test Item Value Reference Range Interpretation [...] NUCLEATED RBCS (test code = 0.00 K/UL 47510) COMPREHENSIVE METABOLIC [id number] 00:00:00 Test Item Value Reference Range Interpretation Comments GLUCOSE (test code = 2217) 317 MG/DL BUN (test code = 2208) 41 MG/DL CREATININE (test code = 2214) 6.82 MG/DL eGFR (2020 CKD-EPI) (test code 8 ML/MIN/1.73 = 99799) CALC BUN/CREAT (test code = 6 RATIO [...] code = 2219) 22 U/L COMPREHENSIVE METABOLIC [id number] 00:00:00 Test Item Value Reference Range Interpretation Comments GLUCOSE (test code = 2217) 317 MG/DL BUN (test code = 2208) 41 MG/DL CREATININE (test code = 2214) 6.82 MG/DL eGFR (2020 CKD-EPI) (test code 8 ML/MIN/1.73 = 93499) CALC BUN/CREAT (test code = 6 RATIO [...] code = 2219) 22 U/L CBC W/AUTO [id number] 00:00:00 Test Item Value Reference Range Interpretation [...] NUCLEATED RBCS (test code = 0.00 K/UL 29394) CBC W/AUTO [id number] 00:00:00 Test Item Value Reference Range Interpretation [...] NUCLEATED RBCS (test code = 0.00 K/UL 32260) CBC W/AUTO [id number] 00:00:00 Test Item Value Reference Range Interpretation [...] NUCLEATED RBCS (test code = 0.00 K/UL 47957) CBC W/AUTO [id number] 00:00:00 Test Item Value Reference Range Interpretation [...] NUCLEATED RBCS (test code = 0.00 K/UL 39528) CBC W/AUTO [id number] 00:00:00 Test Item Value Reference Range Interpretation [...] NUCLEATED RBCS (test code = 0.00 K/UL 25131) COMPREHENSIVE METABOLIC [id number] 00:00:00 Test Item Value Reference Range Interpretation Comments GLUCOSE (test code = 2217) 317 MG/DL BUN (test code = 2208) 41 MG/DL CREATININE (test code = 2214) 6.82 MG/DL eGFR (2020 CKD-EPI) (test code 8 ML/MIN/1.73 = 34061) CALC BUN/CREAT (test code = 6 RATIO [...] code = 2219) 22 U/L COMPREHENSIVE METABOLIC [id number] 00:00:00 Test Item Value Reference Range Interpretation Comments GLUCOSE (test code = 2217) 317 MG/DL BUN (test code = 2208) 41 MG/DL CREATININE (test code = 2214) 6.82 MG/DL eGFR (2020 CKD-EPI) (test code 8 ML/MIN/1.73 = 71899) CALC BUN/CREAT (test code = 6 RATIO [...] code = 2219) 22 U/L COMPREHENSIVE METABOLIC [id number] 00:00:00 Test Item Value Reference Range Interpretation Comments GLUCOSE (test code = 2217) 317 MG/DL BUN (test code = 2208) 41 MG/DL CREATININE (test code = 2214) 6.82 MG/DL eGFR (2020 CKD-EPI) (test code 8 ML/MIN/1.73 = 11184) CALC BUN/CREAT (test code = 6 RATIO [...] code = 2219) 22 U/L CBC W/AUTO [id number] 00:00:00 Test Item Value Reference Range Interpretation [...] NUCLEATED RBCS (test code = 0.00 K/UL 86737) CBC W/AUTO [id number] 00:00:00 Test Item Value Reference Range Interpretation [...] NUCLEATED RBCS (test code = 0.00 K/UL 24329) CBC W/AUTO [id number] 00:00:00 Test Item Value Reference Range Interpretation [...] NUCLEATED RBCS (test code = 0.00 K/UL 93316) COMPREHENSIVE METABOLIC [id number] 00:00:00 Test Item Value Reference Range Interpretation Comments GLUCOSE (test code = 2217) 317 MG/DL BUN (test code = 2208) 41 MG/DL CREATININE (test code = 2214) 6.82 MG/DL eGFR (2020 CKD-EPI) (test code 8 ML/MIN/1.73 = 62933) CALC BUN/CREAT (test code = 6 RATIO [...] code = 2219) 22 U/L COMPREHENSIVE METABOLIC [id number] 00:00:00 Test Item Value Reference Range Interpretation Comments GLUCOSE (test code = 2217) 317 MG/DL BUN (test code = 2208) 41 MG/DL CREATININE (test code = 2214) 6.82 MG/DL eGFR (2020 CKD-EPI) (test code 8 ML/MIN/1.73 = 40074) CALC BUN/CREAT (test code = 6 RATIO [...] code = 2219) 22 U/L CBC W/AUTO [id number] 00:00:00 Test Item Value Reference Range Interpretation [...] NUCLEATED RBCS (test code = 0.00 K/UL 13127) CBC W/AUTO [id number] 00:00:00 Test Item Value Reference Range Interpretation [...] NUCLEATED RBCS (test code = 0.00 K/UL 84808) CBC W/AUTO [id number] 00:00:00 Test Item Value Reference Range Interpretation [...] NUCLEATED RBCS (test code = 0.00 K/UL 15357) COMPREHENSIVE METABOLIC [id number] 00:00:00 Test Item Value Reference Range Interpretation Comments GLUCOSE (test code = 2217) 317 MG/DL BUN (test code = 2208) 41 MG/DL CREATININE (test code = 2214) 6.82 MG/DL eGFR (2020 CKD-EPI) (test code 8 ML/MIN/1.73 = 42176) CALC BUN/CREAT (test code = 6 RATIO [...] code = 2219) 22 U/L COMPREHENSIVE METABOLIC [id number] 00:00:00 Test Item Value Reference Range Interpretation Comments GLUCOSE (test code = 2217) 317 MG/DL BUN (test code = 2208) 41 MG/DL CREATININE (test code = 2214) 6.82 MG/DL eGFR (2020 CKD-EPI) (test code 8 ML/MIN/1.73 = 61646) CALC BUN/CREAT (test code = 6 RATIO [...] code = 2219) 22 U/L CBC W/AUTO [id number] 00:00:00 Test Item Value Reference Range Interpretation [...] NUCLEATED RBCS (test code = 0.00 K/UL 33950) CBC W/AUTO [id number] 00:00:00 Test Item Value Reference Range Interpretation [...] NUCLEATED RBCS (test code = 0.00 K/UL 94164) CBC W/AUTO [id number] 00:00:00 Test Item Value Reference Range Interpretation [...] NUCLEATED RBCS (test code = 0.00 K/UL 33454) COMPREHENSIVE METABOLIC [id number] 00:00:00 Test Item Value Reference Range Interpretation Comments GLUCOSE (test code = 2217) 317 MG/DL BUN (test code = 2208) 41 MG/DL CREATININE (test code = 2214) 6.82 MG/DL eGFR (2020 CKD-EPI) (test code 8 ML/MIN/1.73 = 22871) CALC BUN/CREAT (test code = 6 RATIO [...] code = 2219) 22 U/L COMPREHENSIVE METABOLIC [id number] 00:00:00 Test Item Value Reference Range Interpretation Comments GLUCOSE (test code = 2217) 317 MG/DL BUN (test code = 2208) 41 MG/DL CREATININE (test code = 2214) 6.82 MG/DL eGFR (2020 CKD-EPI) (test code 8 ML/MIN/1.73 = 66142) CALC BUN/CREAT (test code = 6 RATIO [...] code = 2219) 22 U/L CBC W/AUTO [id number] 00:00:00 Test Item Value Reference Range Interpretation [...] NUCLEATED RBCS (test code = 0.00 K/UL 55182) CBC W/AUTO [id number] 00:00:00 Test Item Value Reference Range Interpretation [...] NUCLEATED RBCS (test code = 0.00 K/UL 42245) CBC W/AUTO [id number] 00:00:00 Test Item Value Reference Range Interpretation [...] NUCLEATED RBCS (test code = 0.00 K/UL 52271) COMPREHENSIVE METABOLIC [id number] 00:00:00 Test Item Value Reference Range Interpretation Comments GLUCOSE (test code = 2217) 317 MG/DL BUN (test code = 2208) 41 MG/DL CREATININE (test code = 2214) 6.82 MG/DL eGFR (2020 CKD-EPI) (test code 8 ML/MIN/1.73 = 34185) CALC BUN/CREAT (test code = 6 RATIO [...] code = 2219) 22 U/L COMPREHENSIVE METABOLIC [id number] 00:00:00 Test Item Value Reference Range Interpretation Comments GLUCOSE (test code = 2217) 317 MG/DL BUN (test code = 2208) 41 MG/DL CREATININE (test code = 2214) 6.82 MG/DL eGFR (2020 CKD-EPI) (test code 8 ML/MIN/1.73 = 97773) CALC BUN/CREAT (test code = 6 RATIO [...] ALT (test code = 2219) 22 U/L [id number] 00:00:00 Test Item Value Reference Range Interpretation Comments AMYLASE (test code = 2205) 168 U/L [id number] 00:00:00 Test Item Value Reference Range Interpretation Comments AMYLASE (test code = 2205) 168 U/L [id number] 00:00:00 Test Item Value Reference Range Interpretation Comments LIPASE (test code = 2057) 116 U/L [id number] 00:00:00 Test Item Value Reference Range Interpretation Comments LIPASE (test code = 2057) 116 U/L [id number] 00:00:00 Test Item Value Reference Range Interpretation Comments LIPASE (test code = 2057) 116 U/L [id number] 00:00:00 Test Item Value Reference Range Interpretation Comments AMYLASE (test code = 2205) 168 U/L [id number] 00:00:00 Test Item Value Reference Range Interpretation Comments AMYLASE (test code = 5) 168 U/L [id number] 00:00:00 Test Item Value Reference Range Interpretation Comments LIPASE (test code = 2057) 116 U/L [id number] 00:00:00 Test Item Value Reference Range Interpretation Comments LIPASE (test code = 2057) 116 U/L [id number] 00:00:00 Test Item Value Reference Range Interpretation Comments LIPASE (test code = 2057) 116 U/L [id number] 00:00:00 Test Item Value Reference Range Interpretation Comments AMYLASE (test code = 2205) 168 U/L [id number] 00:00:00 Test Item Value Reference Range Interpretation Comments AMYLASE (test code = 5) 168 U/L [id number] 00:00:00 Test Item Value Reference Range Interpretation Comments AMYLASE (test code = 5) 168 U/L [id number] 00:00:00 Test Item Value Reference Range Interpretation Comments LIPASE (test code = 2057) 116 U/L [id number] 00:00:00 Test Item Value Reference Range Interpretation Comments LIPASE (test code = 2057) 116 U/L [id number] 00:00:00 Test Item Value Reference Range Interpretation Comments LIPASE (test code = 2057) 116 U/L [id number] 00:00:00 Test Item Value Reference Range Interpretation Comments LIPASE (test code = 2057) 116 U/L [id number] 00:00:00 Test Item Value Reference Range Interpretation Comments LIPASE (test code = 2057) 116 U/L [id number] 00:00:00 Test Item Value Reference Range Interpretation Comments AMYLASE (test code = 2205) 168 U/L [id number] 00:00:00 Test Item Value Reference Range Interpretation Comments AMYLASE (test code = 2204) 168 U/L [id number] 00:00:00 Test Item Value Reference Range Interpretation Comments LIPASE (test code = 2057) 116 U/L [id number] 00:00:00 Test Item Value Reference Range Interpretation Comments LIPASE (test code = 2057) 116 U/L [id number] 00:00:00 Test Item Value Reference Range Interpretation Comments LIPASE (test code = 2057) 116 U/L [id number] 00:00:00 Test Item Value Reference Range Interpretation Comments AMYLASE (test code = 5) 168 U/L [id number] 00:00:00 Test Item Value Reference Range Interpretation Comments AMYLASE (test code = 2204) 168 U/L [id number] 00:00:00 Test Item Value Reference Range Interpretation Comments LIPASE (test code = 2057) 116 U/L [id number] 00:00:00 Test Item Value Reference Range Interpretation Comments LIPASE (test code = 2057) 116 U/L [id number] 00:00:00 Test Item Value Reference Range Interpretation Comments LIPASE (test code = 2057) 116 U/L [id number] 00:00:00 Test Item Value Reference Range Interpretation Comments AMYLASE (test code = 5) 168 U/L [id number] 00:00:00 Test Item Value Reference Range Interpretation Comments AMYLASE (test code = 2204) 168 U/L [id number] 00:00:00 Test Item Value Reference Range Interpretation Comments LIPASE (test code = 2057) 116 U/L [id number] 00:00:00 Test Item Value Reference Range Interpretation Comments LIPASE (test code = 2057) 116 U/L [id number] 00:00:00 Test Item Value Reference Range Interpretation Comments LIPASE (test code = 2057) 116 U/L [id number] 00:00:00 Test Item Value Reference Range Interpretation Comments AMYLASE (test code = 5) 168 U/L [id number] 00:00:00 Test Item Value Reference Range Interpretation Comments AMYLASE (test code = 2205) 168 U/L [id number] 00:00:00 Test Item Value Reference Range Interpretation Comments LIPASE (test code = 2058) 116 U/L [id number] 00:00:00 Test Item Value Reference Range Interpretation Comments LIPASE (test code = 2058) 116 U/L [id number] 00:00:00 Test Item Value Reference Range Interpretation Comments LIPASE (test code = 2058) 116 U/L [id number] 00:00:00 Test Item Value Reference Range Interpretation Comments TSH, THIRD GENERATION (test >100.000 UIU/ML code = 2821) [id number] 00:00:00 Test Item Value Reference Range Interpretation Comments TSH, THIRD GENERATION (test >100.000 UIU/ML code = 2821) [id number] 00:00:00 Test Item Value Reference Range Interpretation Comments TSH, THIRD GENERATION (test >100.000 UIU/ML code = 2821) LIPID [id number] 00:00:00 Test Item Value Reference Range Interpretation Comments CHOLESTEROL (test code = 2210) 308 MG/DL TRIGLYCERIDES (test code = 2232) 280 MG/DL HDL CHOLESTEROL (test code = 2220) 66 MG/DL CALC LDL CHOL (test code = 2237) 192 MG/DL RISK RATIO LDL/HDL (test code = 2.91 RATIO 2238) LIPID [id number] 00:00:00 Test Item Value Reference Range Interpretation Comments CHOLESTEROL (test code = 2210) 308 MG/DL TRIGLYCERIDES (test code = 2232) 280 MG/DL HDL CHOLESTEROL (test code = 2220) 66 MG/DL CALC LDL CHOL (test code = 2237) 192 MG/DL RISK RATIO LDL/HDL (test code = 2.91 RATIO 2238) CBC W/AUTO [id number] 00:00:00 Test Item Value Reference Range Interpretation [...] NUCLEATED RBCS (test code = 0.00 K/UL 16817) CBC W/AUTO [id number] 00:00:00 Test Item Value Reference Range Interpretation [...] NUCLEATED RBCS (test code = 0.00 K/UL 71036) CBC W/AUTO [id number] 00:00:00 Test Item Value Reference Range Interpretation [...] NUCLEATED RBCS (test code = 0.00 K/UL 19157) COMPREHENSIVE METABOLIC [id number] 00:00:00 Test Item Value Reference Range Interpretation Comments GLUCOSE (test code = 2217) 137 MG/DL BUN (test code = 2208) 56 MG/DL CREATININE (test code = 2214) 10.21 MG/DL eGFR AMER. (test code = 6 ML/MIN/1.73 98228) eGFR NON- AMER. (test 5 ML/MIN/1.73 code = 84035) CALC BUN/CREAT (test code = 5 RATIO [...] code = 2219) 16 U/L COMPREHENSIVE METABOLIC [id number] 00:00:00 Test Item Value Reference Range Interpretation Comments GLUCOSE (test code = 2217) 137 MG/DL BUN (test code = 2208) 56 MG/DL CREATININE (test code = 2214) 10.21 MG/DL eGFR AMER. (test code = 6 ML/MIN/1.73 42799) eGFR NON- AMER. (test 5 ML/MIN/1.73 code = 70908) CALC BUN/CREAT (test code = 5 RATIO [...] ALT (test code = 2219) 16 U/L [id number] 00:00:00 Test Item Value Reference Range Interpretation Comments TSH, THIRD GENERATION (test >100.000 UIU/ML code = 2821) [id number] 00:00:00 Test Item Value Reference Range Interpretation Comments TSH, THIRD GENERATION (test >100.000 UIU/ML code = 2821) [id number] 00:00:00 Test Item Value Reference Range Interpretation Comments TSH, THIRD GENERATION (test >100.000 UIU/ML code = 2821) LIPID [id number] 00:00:00 Test Item Value Reference Range Interpretation Comments CHOLESTEROL (test code = 2210) 308 MG/DL TRIGLYCERIDES (test code = 2232) 280 MG/DL HDL CHOLESTEROL (test code = 2220) 66 MG/DL CALC LDL CHOL (test code = 2237) 192 MG/DL RISK RATIO LDL/HDL (test code = 2.91 RATIO 2238) LIPID [id number] 00:00:00 Test Item Value Reference Range Interpretation Comments CHOLESTEROL (test code = 2210) 308 MG/DL TRIGLYCERIDES (test code = 2232) 280 MG/DL HDL CHOLESTEROL (test code = 2220) 66 MG/DL CALC LDL CHOL (test code = 2237) 192 MG/DL RISK RATIO LDL/HDL (test code = 2.91 RATIO 2238) CBC W/AUTO [id number] 00:00:00 Test Item Value Reference Range Interpretation [...] NUCLEATED RBCS (test code = 0.00 K/UL 68816) CBC W/AUTO [id number] 00:00:00 Test Item Value Reference Range Interpretation [...] NUCLEATED RBCS (test code = 0.00 K/UL 66057) CBC W/AUTO [id number] 00:00:00 Test Item Value Reference Range Interpretation [...] NUCLEATED RBCS (test code = 0.00 K/UL 77108) COMPREHENSIVE METABOLIC [id number] 00:00:00 Test Item Value Reference Range Interpretation Comments GLUCOSE (test code = 2217) 137 MG/DL BUN (test code = 2208) 56 MG/DL CREATININE (test code = 2214) 10.21 MG/DL eGFR AMER. (test code = 6 ML/MIN/1.73 78618) eGFR NON- AMER. (test 5 ML/MIN/1.73 code = 27368) CALC BUN/CREAT (test code = 5 RATIO [...] code = 2219) 16 U/L COMPREHENSIVE METABOLIC [id number] 00:00:00 Test Item Value Reference Range Interpretation Comments GLUCOSE (test code = 2217) 137 MG/DL BUN (test code = 2208) 56 MG/DL CREATININE (test code = 2214) 10.21 MG/DL eGFR AMER. (test code = 6 ML/MIN/1.73 90241) eGFR NON- AMER. (test 5 ML/MIN/1.73 code = 78448) CALC BUN/CREAT (test code = 5 RATIO [...] ALT (test code = 2219) 16 U/L [id number] 00:00:00 Test Item Value Reference Range Interpretation Comments TSH, THIRD GENERATION (test >100.000 UIU/ML code = 2821) [id number] 00:00:00 Test Item Value Reference Range Interpretation Comments TSH, THIRD GENERATION (test >100.000 UIU/ML code = 2821) [id number] 00:00:00 Test Item Value Reference Range Interpretation Comments TSH, THIRD GENERATION (test >100.000 UIU/ML code = 2821) [id number] 00:00:00 Test Item Value Reference Range Interpretation Comments TSH, THIRD GENERATION (test >100.000 UIU/ML code = 2821) [id number] 00:00:00 Test Item Value Reference Range Interpretation Comments TSH, THIRD GENERATION (test >100.000 UIU/ML code = 2821) LIPID [id number] 00:00:00 Test Item Value Reference Range Interpretation Comments CHOLESTEROL (test code = 2210) 308 MG/DL TRIGLYCERIDES (test code = 2232) 280 MG/DL HDL CHOLESTEROL (test code = 2220) 66 MG/DL CALC LDL CHOL (test code = 2237) 192 MG/DL RISK RATIO LDL/HDL (test code = 2.91 RATIO 2238) LIPID [id number] 00:00:00 Test Item Value Reference Range Interpretation Comments CHOLESTEROL (test code = 2210) 308 MG/DL TRIGLYCERIDES (test code = 2232) 280 MG/DL HDL CHOLESTEROL (test code = 2220) 66 MG/DL CALC LDL CHOL (test code = 2237) 192 MG/DL RISK RATIO LDL/HDL (test code = 2.91 RATIO 2238) CBC W/AUTO [id number] 00:00:00 Test Item Value Reference Range Interpretation [...] NUCLEATED RBCS (test code = 0.00 K/UL 10009) CBC W/AUTO [id number] 00:00:00 Test Item Value Reference Range Interpretation [...] NUCLEATED RBCS (test code = 0.00 K/UL 51087) CBC W/AUTO [id number] 00:00:00 Test Item Value Reference Range Interpretation [...] NUCLEATED RBCS (test code = 0.00 K/UL 22641) COMPREHENSIVE METABOLIC [id number] 00:00:00 Test Item Value Reference Range Interpretation Comments GLUCOSE (test code = 2217) 137 MG/DL BUN (test code = 2208) 56 MG/DL CREATININE (test code = 2214) 10.21 MG/DL eGFR AMER. (test code = 6 ML/MIN/1.73 17906) eGFR NON- AMER. (test 5 ML/MIN/1.73 code = 79217) CALC BUN/CREAT (test code = 5 RATIO [...] code = 2219) 16 U/L COMPREHENSIVE METABOLIC [id number] 00:00:00 Test Item Value Reference Range Interpretation Comments GLUCOSE (test code = 2217) 137 MG/DL BUN (test code = 2208) 56 MG/DL CREATININE (test code = 2214) 10.21 MG/DL eGFR AMER. (test code = 6 ML/MIN/1.73 98807) eGFR NON- AMER. (test 5 ML/MIN/1.73 code = 66362) CALC BUN/CREAT (test code = 5 RATIO [...] (test code = 2219) 16 U/L LIPID [id number] 00:00:00 Test Item Value Reference Range Interpretation Comments CHOLESTEROL (test code = 2210) 308 MG/DL TRIGLYCERIDES (test code = 2232) 280 MG/DL HDL CHOLESTEROL (test code = 2220) 66 MG/DL CALC LDL CHOL (test code = 2237) 192 MG/DL RISK RATIO LDL/HDL (test code = 2.91 RATIO 2238) CBC W/AUTO [id number] 00:00:00 Test Item Value Reference Range Interpretation [...] NUCLEATED RBCS (test code = 0.00 K/UL 16059) CBC W/AUTO [id number] 00:00:00 Test Item Value Reference Range Interpretation [...] NUCLEATED RBCS (test code = 0.00 K/UL 75586) COMPREHENSIVE METABOLIC [id number] 00:00:00 Test Item Value Reference Range Interpretation Comments GLUCOSE (test code = 2217) 137 MG/DL BUN (test code = 2208) 56 MG/DL CREATININE (test code = 2214) 10.21 MG/DL eGFR AMER. (test code = 6 ML/MIN/1.73 93324) eGFR NON- AMER. (test 5 ML/MIN/1.73 code = 50140) CALC BUN/CREAT (test code = 5 RATIO [...] ALT (test code = 2219) 16 U/L [id number] 00:00:00 Test Item Value Reference Range Interpretation Comments TSH, THIRD GENERATION (test >100.000 UIU/ML code = 2821) [id number] 00:00:00 Test Item Value Reference Range Interpretation Comments TSH, THIRD GENERATION (test >100.000 UIU/ML code = 2821) [id number] 00:00:00 Test Item Value Reference Range Interpretation Comments TSH, THIRD GENERATION (test >100.000 UIU/ML code = 2821) LIPID [id number] 00:00:00 Test Item Value Reference Range Interpretation Comments CHOLESTEROL (test code = 2210) 308 MG/DL TRIGLYCERIDES (test code = 2232) 280 MG/DL HDL CHOLESTEROL (test code = 2220) 66 MG/DL CALC LDL CHOL (test code = 2237) 192 MG/DL RISK RATIO LDL/HDL (test code = 2.91 RATIO 2238) LIPID [id number] 00:00:00 Test Item Value Reference Range Interpretation Comments CHOLESTEROL (test code = 2210) 308 MG/DL TRIGLYCERIDES (test code = 2232) 280 MG/DL HDL CHOLESTEROL (test code = 2220) 66 MG/DL CALC LDL CHOL (test code = 2237) 192 MG/DL RISK RATIO LDL/HDL (test code = 2.91 RATIO 2238) CBC W/AUTO [id number] 00:00:00 Test Item Value Reference Range Interpretation [...] NUCLEATED RBCS (test code = 0.00 K/UL 39065) CBC W/AUTO [id number] 00:00:00 Test Item Value Reference Range Interpretation [...] NUCLEATED RBCS (test code = 0.00 K/UL 86124) CBC W/AUTO [id number] 00:00:00 Test Item Value Reference Range Interpretation [...] NUCLEATED RBCS (test code = 0.00 K/UL 48933) COMPREHENSIVE METABOLIC [id number] 00:00:00 Test Item Value Reference Range Interpretation Comments GLUCOSE (test code = 2217) 137 MG/DL BUN (test code = 2208) 56 MG/DL CREATININE (test code = 2214) 10.21 MG/DL eGFR AMER. (test code = 6 ML/MIN/1.73 90188) eGFR NON- AMER. (test 5 ML/MIN/1.73 code = 23265) CALC BUN/CREAT (test code = 5 RATIO [...] code = 2219) 16 U/L COMPREHENSIVE METABOLIC [id number] 00:00:00 Test Item Value Reference Range Interpretation Comments GLUCOSE (test code = 2217) 137 MG/DL BUN (test code = 2208) 56 MG/DL CREATININE (test code = 2214) 10.21 MG/DL eGFR AMER. (test code = 6 ML/MIN/1.73 18613) eGFR NON- AMER. (test 5 ML/MIN/1.73 code = 68764) CALC BUN/CREAT (test code = 5 RATIO [...] ALT (test code = 2219) 16 U/L [id number] 00:00:00 Test Item Value Reference Range Interpretation Comments TSH, THIRD GENERATION (test >100.000 UIU/ML code = 2821) [id number] 00:00:00 Test Item Value Reference Range Interpretation Comments TSH, THIRD GENERATION (test >100.000 UIU/ML code = 2821) [id number] 00:00:00 Test Item Value Reference Range Interpretation Comments TSH, THIRD GENERATION (test >100.000 UIU/ML code = 2821) LIPID [id number] 00:00:00 Test Item Value Reference Range Interpretation Comments CHOLESTEROL (test code = 2210) 308 MG/DL TRIGLYCERIDES (test code = 2232) 280 MG/DL HDL CHOLESTEROL (test code = 2220) 66 MG/DL CALC LDL CHOL (test code = 2237) 192 MG/DL RISK RATIO LDL/HDL (test code = 2.91 RATIO 2238) LIPID [id number] 00:00:00 Test Item Value Reference Range Interpretation Comments CHOLESTEROL (test code = 2210) 308 MG/DL TRIGLYCERIDES (test code = 2232) 280 MG/DL HDL CHOLESTEROL (test code = 2220) 66 MG/DL CALC LDL CHOL (test code = 2237) 192 MG/DL RISK RATIO LDL/HDL (test code = 2.91 RATIO 2238) CBC W/AUTO [id number] 00:00:00 Test Item Value Reference Range Interpretation [...] NUCLEATED RBCS (test code = 0.00 K/UL 70197) CBC W/AUTO [id number] 00:00:00 Test Item Value Reference Range Interpretation [...] NUCLEATED RBCS (test code = 0.00 K/UL 75952) CBC W/AUTO [id number] 00:00:00 Test Item Value Reference Range Interpretation [...] NUCLEATED RBCS (test code = 0.00 K/UL 34895) COMPREHENSIVE METABOLIC [id number] 00:00:00 Test Item Value Reference Range Interpretation Comments GLUCOSE (test code = 2217) 137 MG/DL BUN (test code = 2208) 56 MG/DL CREATININE (test code = 2214) 10.21 MG/DL eGFR AMER. (test code = 6 ML/MIN/1.73 17526) eGFR NON- AMER. (test 5 ML/MIN/1.73 code = 52689) CALC BUN/CREAT (test code = 5 RATIO [...] code = 2219) 16 U/L COMPREHENSIVE METABOLIC [id number] 00:00:00 Test Item Value Reference Range Interpretation Comments GLUCOSE (test code = 2217) 137 MG/DL BUN (test code = 2208) 56 MG/DL CREATININE (test code = 2214) 10.21 MG/DL eGFR AMER. (test code = 6 ML/MIN/1.73 72431) eGFR NON- AMER. (test 5 ML/MIN/1.73 code = 00665) CALC BUN/CREAT (test code = 5 RATIO [...] ALT (test code = 2219) 16 U/L [id number] 00:00:00 Test Item Value Reference Range Interpretation Comments TSH, THIRD GENERATION (test >100.000 UIU/ML code = 2821) [id number] 00:00:00 Test Item Value Reference Range Interpretation Comments TSH, THIRD GENERATION (test >100.000 UIU/ML code = 2821) [id number] 00:00:00 Test Item Value Reference Range Interpretation Comments TSH, THIRD GENERATION (test >100.000 UIU/ML code = 2821) LIPID [id number] 00:00:00 Test Item Value Reference Range Interpretation Comments CHOLESTEROL (test code = 2210) 308 MG/DL TRIGLYCERIDES (test code = 2232) 280 MG/DL HDL CHOLESTEROL (test code = 2220) 66 MG/DL CALC LDL CHOL (test code = 2237) 192 MG/DL RISK RATIO LDL/HDL (test code = 2.91 RATIO 2238) LIPID [id number] 00:00:00 Test Item Value Reference Range Interpretation Comments CHOLESTEROL (test code = 2210) 308 MG/DL TRIGLYCERIDES (test code = 2232) 280 MG/DL HDL CHOLESTEROL (test code = 2220) 66 MG/DL CALC LDL CHOL (test code = 2237) 192 MG/DL RISK RATIO LDL/HDL (test code = 2.91 RATIO 2238) CBC W/AUTO [id number] 00:00:00 Test Item Value Reference Range Interpretation [...] NUCLEATED RBCS (test code = 0.00 K/UL 15610) CBC W/AUTO [id number] 00:00:00 Test Item Value Reference Range Interpretation [...] NUCLEATED RBCS (test code = 0.00 K/UL 58133) CBC W/AUTO [id number] 00:00:00 Test Item Value Reference Range Interpretation [...] NUCLEATED RBCS (test code = 0.00 K/UL 25568) COMPREHENSIVE METABOLIC [id number] 00:00:00 Test Item Value Reference Range Interpretation Comments GLUCOSE (test code = 2217) 137 MG/DL BUN (test code = 2208) 56 MG/DL CREATININE (test code = 2214) 10.21 MG/DL eGFR AMER. (test code = 6 ML/MIN/1.73 61784) eGFR NON- AMER. (test 5 ML/MIN/1.73 code = 28987) CALC BUN/CREAT (test code = 5 RATIO [...] code = 2219) 16 U/L COMPREHENSIVE METABOLIC [id number] 00:00:00 Test Item Value Reference Range Interpretation Comments GLUCOSE (test code = 2217) 137 MG/DL BUN (test code = 2208) 56 MG/DL CREATININE (test code = 2214) 10.21 MG/DL eGFR AMER. (test code = 6 ML/MIN/1.73 62210) eGFR NON- AMER. (test 5 ML/MIN/1.73 code = 35470) CALC BUN/CREAT (test code = 5 RATIO [...] ALT (test code = 2219) 16 U/L [id number] 00:00:00 Test Item Value Reference Range Interpretation Comments TSH, THIRD GENERATION (test >100.000 UIU/ML code = 2821) [id number] 00:00:00 Test Item Value Reference Range Interpretation Comments TSH, THIRD GENERATION (test >100.000 UIU/ML code = 2821) [id number] 00:00:00 Test Item Value Reference Range Interpretation Comments TSH, THIRD GENERATION (test >100.000 UIU/ML code = 2821) LIPID [id number] 00:00:00 Test Item Value Reference Range Interpretation Comments CHOLESTEROL (test code = 2210) 308 MG/DL TRIGLYCERIDES (test code = 2232) 280 MG/DL HDL CHOLESTEROL (test code = 2220) 66 MG/DL CALC LDL CHOL (test code = 2237) 192 MG/DL RISK RATIO LDL/HDL (test code = 2.91 RATIO 2238) LIPID [id number] 00:00:00 Test Item Value Reference Range Interpretation Comments CHOLESTEROL (test code = 2210) 308 MG/DL TRIGLYCERIDES (test code = 2232) 280 MG/DL HDL CHOLESTEROL (test code = 2220) 66 MG/DL CALC LDL CHOL (test code = 2237) 192 MG/DL RISK RATIO LDL/HDL (test code = 2.91 RATIO 2238) CBC W/AUTO [id number] 00:00:00 Test Item Value Reference Range Interpretation [...] NUCLEATED RBCS (test code = 0.00 K/UL 36606) CBC W/AUTO [id number] 00:00:00 Test Item Value Reference Range Interpretation [...] NUCLEATED RBCS (test code = 0.00 K/UL 98590) CBC W/AUTO [id number] 00:00:00 Test Item Value Reference Range Interpretation [...] NUCLEATED RBCS (test code = 0.00 K/UL 74175) COMPREHENSIVE METABOLIC [id number] 00:00:00 Test Item Value Reference Range Interpretation Comments GLUCOSE (test code = 2217) 137 MG/DL BUN (test code = 2208) 56 MG/DL CREATININE (test code = 2214) 10.21 MG/DL eGFR AMER. (test code = 6 ML/MIN/1.73 43605) eGFR NON- AMER. (test 5 ML/MIN/1.73 code = 36681) CALC BUN/CREAT (test code = 5 RATIO [...] code = 2219) 16 U/L COMPREHENSIVE METABOLIC [id number] 00:00:00 Test Item Value Reference Range Interpretation Comments GLUCOSE (test code = 2217) 137 MG/DL BUN (test code = 2208) 56 MG/DL CREATININE (test code = 2214) 10.21 MG/DL eGFR AMER. (test code = 6 ML/MIN/1.73 35446) eGFR NON- AMER. (test 5 ML/MIN/1.73 code = 94555) CALC BUN/CREAT (test code = 5 RATIO [...] (test code = 2219) 16 U/L HEMOGLOBIN [id number] 00:00:00 Test Item Value Reference Range Interpretation Comments HEMOGLOBIN A1c (test code = 20016) 5.5 % HEMOGLOBIN [id number] 00:00:00 Test Item Value Reference Range Interpretation Comments HEMOGLOBIN A1c (test code = 51345) 5.5 % HEMOGLOBIN [id number] 00:00:00 Test Item Value Reference Range Interpretation Comments HEMOGLOBIN A1c (test code = 53423) 5.5 % [id number] 00:00:00 Test Item Value Reference Range Interpretation Comments TSH, THIRD GENERATION (test >100.000 UIU/ML code = 2821) [id number] 00:00:00 Test Item Value Reference Range Interpretation Comments TSH, THIRD GENERATION (test >100.000 UIU/ML code = 2821) [id number] 00:00:00 Test Item Value Reference Range Interpretation Comments TSH, THIRD GENERATION (test >100.000 UIU/ML code = 2821) HEMOGLOBIN [id number] 00:00:00 Test Item Value Reference Range Interpretation Comments HEMOGLOBIN A1c (test code = 81971) 5.5 % HEMOGLOBIN [id number] 00:00:00 Test Item Value Reference Range Interpretation Comments HEMOGLOBIN A1c (test code = 03180) 5.5 % HEMOGLOBIN [id number] 00:00:00 Test Item Value Reference Range Interpretation Comments HEMOGLOBIN A1c (test code = 12828) 5.5 % [id number] 00:00:00 Test Item Value Reference Range Interpretation Comments TSH, THIRD GENERATION (test >100.000 UIU/ML code = 2821) [id number] 00:00:00 Test Item Value Reference Range Interpretation Comments TSH, THIRD GENERATION (test >100.000 UIU/ML code = 2821) [id number] 00:00:00 Test Item Value Reference Range Interpretation Comments TSH, THIRD GENERATION (test >100.000 UIU/ML code = 2821) HEMOGLOBIN [id number] 00:00:00 Test Item Value Reference Range Interpretation Comments HEMOGLOBIN A1c (test code = 20653) 5.5 % HEMOGLOBIN [id number] 00:00:00 Test Item Value Reference Range Interpretation Comments HEMOGLOBIN A1c (test code = 11522) 5.5 % HEMOGLOBIN [id number] 00:00:00 Test Item Value Reference Range Interpretation Comments HEMOGLOBIN A1c (test code = 67131) 5.5 % HEMOGLOBIN [id number] 00:00:00 Test Item Value Reference Range Interpretation Comments HEMOGLOBIN A1c (test code = 92010) 5.5 % HEMOGLOBIN [id number] 00:00:00 Test Item Value Reference Range Interpretation Comments HEMOGLOBIN A1c (test code = 17259) 5.5 % [id number] 00:00:00 Test Item Value Reference Range Interpretation Comments TSH, THIRD GENERATION (test >100.000 UIU/ML code = 2821) [id number] 00:00:00 Test Item Value Reference Range Interpretation Comments TSH, THIRD GENERATION (test >100.000 UIU/ML code = 2821) [id number] 00:00:00 Test Item Value Reference Range Interpretation Comments TSH, THIRD GENERATION (test >100.000 UIU/ML code = 2821) [id number] 00:00:00 Test Item Value Reference Range Interpretation Comments TSH, THIRD GENERATION (test >100.000 UIU/ML code = 2821) [id number] 00:00:00 Test Item Value Reference Range Interpretation Comments TSH, THIRD GENERATION (test >100.000 UIU/ML code = 2821) HEMOGLOBIN [id number] 00:00:00 Test Item Value Reference Range Interpretation Comments HEMOGLOBIN A1c (test code = 47441) 5.5 % HEMOGLOBIN [id number] 00:00:00 Test Item Value Reference Range Interpretation Comments HEMOGLOBIN A1c (test code = 16004) 5.5 % HEMOGLOBIN [id number] 00:00:00 Test Item Value Reference Range Interpretation Comments HEMOGLOBIN A1c (test code = 78443) 5.5 % [id number] 00:00:00 Test Item Value Reference Range Interpretation Comments TSH, THIRD GENERATION (test >100.000 UIU/ML code = 2821) [id number] 00:00:00 Test Item Value Reference Range Interpretation Comments TSH, THIRD GENERATION (test >100.000 UIU/ML code = 2821) [id number] 00:00:00 Test Item Value Reference Range Interpretation Comments TSH, THIRD GENERATION (test >100.000 UIU/ML code = 2821) HEMOGLOBIN [id number] 00:00:00 Test Item Value Reference Range Interpretation Comments HEMOGLOBIN A1c (test code = 09158) 5.5 % HEMOGLOBIN [id number] 00:00:00 Test Item Value Reference Range Interpretation Comments HEMOGLOBIN A1c (test code = 63446) 5.5 % HEMOGLOBIN [id number] 00:00:00 Test Item Value Reference Range Interpretation Comments HEMOGLOBIN A1c (test code = 97814) 5.5 % [id number] 00:00:00 Test Item Value Reference Range Interpretation Comments TSH, THIRD GENERATION (test >100.000 UIU/ML code = 2821) [id number] 00:00:00 Test Item Value Reference Range Interpretation Comments TSH, THIRD GENERATION (test >100.000 UIU/ML code = 2821) [id number] 00:00:00 Test Item Value Reference Range Interpretation Comments TSH, THIRD GENERATION (test >100.000 UIU/ML code = 2821) HEMOGLOBIN [id number] 00:00:00 Test Item Value Reference Range Interpretation Comments HEMOGLOBIN A1c (test code = 76590) 5.5 % HEMOGLOBIN [id number] 00:00:00 Test Item Value Reference Range Interpretation Comments HEMOGLOBIN A1c (test code = 70540) 5.5 % HEMOGLOBIN [id number] 00:00:00 Test Item Value Reference Range Interpretation Comments HEMOGLOBIN A1c (test code = 89876) 5.5 % [id number] 00:00:00 Test Item Value Reference Range Interpretation Comments TSH, THIRD GENERATION (test >100.000 UIU/ML code = 2821) [id number] 00:00:00 Test Item Value Reference Range Interpretation Comments TSH, THIRD GENERATION (test >100.000 UIU/ML code = 2821) [id number] 00:00:00 Test Item Value Reference Range Interpretation Comments TSH, THIRD GENERATION (test >100.000 UIU/ML code = 2821) HEMOGLOBIN [id number] 00:00:00 Test Item Value Reference Range Interpretation Comments HEMOGLOBIN A1c (test code = 46169) 5.5 % HEMOGLOBIN [id number] 00:00:00 Test Item Value Reference Range Interpretation Comments HEMOGLOBIN A1c (test code = 17547) 5.5 % HEMOGLOBIN [id number] 00:00:00 Test Item Value Reference Range Interpretation Comments HEMOGLOBIN A1c (test code = 88881) 5.5 % [id number] 00:00:00 Test Item Value Reference Range Interpretation Comments TSH, THIRD GENERATION (test >100.000 UIU/ML code = 2821) [id number] 00:00:00 Test Item Value Reference Range Interpretation Comments TSH, THIRD GENERATION (test >100.000 UIU/ML code = 2821) [id number] 00:00:00 Test Item Value Reference Range Interpretation Comments TSH, THIRD GENERATION (test >100.000 UIU/ML code = 2821) CBC W/AUTO [id number] 00:00:00 Test Item Value Reference Range Interpretation [...] code = 1015) 298 K/UL CBC W/AUTO [id number] 00:00:00 Test Item Value Reference Range Interpretation [...] code = 1015) 298 K/UL CBC W/AUTO [id number] 00:00:00 Test Item Value Reference Range Interpretation [...] code = 1015) 298 K/UL COMPREHENSIVE METABOLIC [id number] 00:00:00 Test Item Value Reference Range Interpretation Comments GLUCOSE (test code = 2217) 228 MG/DL BUN (test code = 2208) 23 MG/DL CREATININE (test code = 2214) 5.99 MG/DL eGFR AMER. (test code 11 ML/MIN/1.73 = 07138) eGFR NON- AMER. (test 10 ML/MIN/1.73 code = 30945) CALC BUN/CREAT (test code = 4 RATIO [...] code = 2219) 24 U/L COMPREHENSIVE METABOLIC [id number] 00:00:00 Test Item Value Reference Range Interpretation Comments GLUCOSE (test code = 2217) 228 MG/DL BUN (test code = 2208) 23 MG/DL CREATININE (test code = 2214) 5.99 MG/DL eGFR AMER. (test code 11 ML/MIN/1.73 = 80816) eGFR NON- AMER. (test 10 ML/MIN/1.73 code = 29985) CALC BUN/CREAT (test code = 4 RATIO [...] (test code = 2219) 24 U/L LIPID [id number] 00:00:00 Test Item Value Reference Range Interpretation Comments CHOLESTEROL (test code = 2210) 335 MG/DL TRIGLYCERIDES (test code = 2232) 446 MG/DL HDL CHOLESTEROL (test code = 73 MG/DL 2220) CALC LDL CHOL (test code = 2237) (NOTE) MG/DL RISK RATIO LDL/HDL (test code = (NOTE) RATIO 2238) LIPID [id number] 00:00:00 Test Item Value Reference Range Interpretation Comments CHOLESTEROL (test code = 2210) 335 MG/DL TRIGLYCERIDES (test code = 2232) 446 MG/DL HDL CHOLESTEROL (test code = 73 MG/DL 2220) CALC LDL CHOL (test code = 2237) (NOTE) MG/DL RISK RATIO LDL/HDL (test code = (NOTE) RATIO 2238) [id number] 00:00:00 Test Item Value Reference Range Interpretation Comments TSH, THIRD GENERATION (test >100.000 UIU/ML code = 2821) [id number] 00:00:00 Test Item Value Reference Range Interpretation Comments TSH, THIRD GENERATION (test >100.000 UIU/ML code = 2821) [id number] 00:00:00 Test Item Value Reference Range Interpretation Comments TSH, THIRD GENERATION (test >100.000 UIU/ML code = 2821) CBC W/AUTO [id number] 00:00:00 Test Item Value Reference Range Interpretation [...] code = 1015) 298 K/UL CBC W/AUTO [id number] 00:00:00 Test Item Value Reference Range Interpretation [...] code = 1015) 298 K/UL CBC W/AUTO [id number] 00:00:00 Test Item Value Reference Range Interpretation [...] code = 1015) 298 K/UL COMPREHENSIVE METABOLIC [id number] 00:00:00 Test Item Value Reference Range Interpretation Comments GLUCOSE (test code = 2217) 228 MG/DL BUN (test code = 2208) 23 MG/DL CREATININE (test code = 2214) 5.99 MG/DL eGFR AMER. (test code 11 ML/MIN/1.73 = 94287) eGFR NON- AMER. (test 10 ML/MIN/1.73 code = 14933) CALC BUN/CREAT (test code = 4 RATIO [...] code = 2219) 24 U/L COMPREHENSIVE METABOLIC [id number] 00:00:00 Test Item Value Reference Range Interpretation Comments GLUCOSE (test code = 2217) 228 MG/DL BUN (test code = 2208) 23 MG/DL CREATININE (test code = 2214) 5.99 MG/DL eGFR AMER. (test code 11 ML/MIN/1.73 = 71128) eGFR NON- AMER. (test 10 ML/MIN/1.73 code = 89563) CALC BUN/CREAT (test code = 4 RATIO [...] (test code = 2219) 24 U/L LIPID [id number] 00:00:00 Test Item Value Reference Range Interpretation Comments CHOLESTEROL (test code = 2210) 335 MG/DL TRIGLYCERIDES (test code = 2232) 446 MG/DL HDL CHOLESTEROL (test code = 73 MG/DL 2220) CALC LDL CHOL (test code = 2237) (NOTE) MG/DL RISK RATIO LDL/HDL (test code = (NOTE) RATIO 2238) LIPID [id number] 00:00:00 Test Item Value Reference Range Interpretation Comments CHOLESTEROL (test code = 2210) 335 MG/DL TRIGLYCERIDES (test code = 2232) 446 MG/DL HDL CHOLESTEROL (test code = 73 MG/DL 2220) CALC LDL CHOL (test code = 2237) (NOTE) MG/DL RISK RATIO LDL/HDL (test code = (NOTE) RATIO 2238) [id number] 00:00:00 Test Item Value Reference Range Interpretation Comments TSH, THIRD GENERATION (test >100.000 UIU/ML code = 2821) [id number] 00:00:00 Test Item Value Reference Range Interpretation Comments TSH, THIRD GENERATION (test >100.000 UIU/ML code = 2821) [id number] 00:00:00 Test Item Value Reference Range Interpretation Comments TSH, THIRD GENERATION (test >100.000 UIU/ML code = 2821) CBC W/AUTO [id number] 00:00:00 Test Item Value Reference Range Interpretation [...] code = 1015) 298 K/UL CBC W/AUTO [id number] 00:00:00 Test Item Value Reference Range Interpretation [...] code = 1015) 298 K/UL CBC W/AUTO [id number] 00:00:00 Test Item Value Reference Range Interpretation [...] code = 1015) 298 K/UL CBC W/AUTO [id number] 00:00:00 Test Item Value Reference Range Interpretation [...] code = 1015) 298 K/UL CBC W/AUTO [id number] 00:00:00 Test Item Value Reference Range Interpretation [...] code = 1015) 298 K/UL COMPREHENSIVE METABOLIC [id number] 00:00:00 Test Item Value Reference Range Interpretation Comments GLUCOSE (test code = 2217) 228 MG/DL BUN (test code = 2208) 23 MG/DL CREATININE (test code = 2214) 5.99 MG/DL eGFR AMER. (test code 11 ML/MIN/1.73 = 79226) eGFR NON- AMER. (test 10 ML/MIN/1.73 code = 08831) CALC BUN/CREAT (test code = 4 RATIO [...] code = 2219) 24 U/L COMPREHENSIVE METABOLIC [id number] 00:00:00 Test Item Value Reference Range Interpretation Comments GLUCOSE (test code = 2217) 228 MG/DL BUN (test code = 2208) 23 MG/DL CREATININE (test code = 2214) 5.99 MG/DL eGFR AMER. (test code 11 ML/MIN/1.73 = 54044) eGFR NON- AMER. (test 10 ML/MIN/1.73 code = 69899) CALC BUN/CREAT (test code = 4 RATIO [...] (test code = 2219) 24 U/L LIPID [id number] 00:00:00 Test Item Value Reference Range Interpretation Comments CHOLESTEROL (test code = 2210) 335 MG/DL TRIGLYCERIDES (test code = 2232) 446 MG/DL HDL CHOLESTEROL (test code = 73 MG/DL 2220) CALC LDL CHOL (test code = 2237) (NOTE) MG/DL RISK RATIO LDL/HDL (test code = (NOTE) RATIO 2238) LIPID [id number] 00:00:00 Test Item Value Reference Range Interpretation Comments CHOLESTEROL (test code = 2210) 335 MG/DL TRIGLYCERIDES (test code = 2232) 446 MG/DL HDL CHOLESTEROL (test code = 73 MG/DL 2220) CALC LDL CHOL (test code = 2237) (NOTE) MG/DL RISK RATIO LDL/HDL (test code = (NOTE) RATIO 2238) [id number] 00:00:00 Test Item Value Reference Range Interpretation Comments TSH, THIRD GENERATION (test >100.000 UIU/ML code = 2821) [id number] 00:00:00 Test Item Value Reference Range Interpretation Comments TSH, THIRD GENERATION (test >100.000 UIU/ML code = 2821) [id number] 00:00:00 Test Item Value Reference Range Interpretation Comments TSH, THIRD GENERATION (test >100.000 UIU/ML code = 2821) COMPREHENSIVE METABOLIC [id number] 00:00:00 Test Item Value Reference Range Interpretation Comments GLUCOSE (test code = 2217) 228 MG/DL BUN (test code = 2208) 23 MG/DL CREATININE (test code = 2214) 5.99 MG/DL eGFR AMER. (test code 11 ML/MIN/1.73 = 83855) eGFR NON- AMER. (test 10 ML/MIN/1.73 code = 82956) CALC BUN/CREAT (test code = 4 RATIO [...] (test code = 2219) 24 U/L LIPID [id number] 00:00:00 Test Item Value Reference Range Interpretation Comments CHOLESTEROL (test code = 2210) 335 MG/DL TRIGLYCERIDES (test code = 2232) 446 MG/DL HDL CHOLESTEROL (test code = 73 MG/DL 0) CALC LDL CHOL (test code = 2237) (NOTE) MG/DL RISK RATIO LDL/HDL (test code = (NOTE) RATIO 2238) [id number] 00:00:00 Test Item Value Reference Range Interpretation Comments TSH, THIRD GENERATION (test >100.000 UIU/ML code = 2821) [id number] 00:00:00 Test Item Value Reference Range Interpretation Comments TSH, THIRD GENERATION (test >100.000 UIU/ML code = 2821) CBC W/AUTO [id number] 00:00:00 Test Item Value Reference Range Interpretation [...] code = 1015) 298 K/UL CBC W/AUTO [id number] 00:00:00 Test Item Value Reference Range Interpretation [...] code = 1015) 298 K/UL CBC W/AUTO [id number] 00:00:00 Test Item Value Reference Range Interpretation [...] code = 1015) 298 K/UL COMPREHENSIVE METABOLIC [id number] 00:00:00 Test Item Value Reference Range Interpretation Comments GLUCOSE (test code = 2217) 228 MG/DL BUN (test code = 2208) 23 MG/DL CREATININE (test code = 2214) 5.99 MG/DL eGFR AMER. (test code 11 ML/MIN/1.73 = 00309) eGFR NON- AMER. (test 10 ML/MIN/1.73 code = 81964) CALC BUN/CREAT (test code = 4 RATIO [...] code = 2219) 24 U/L COMPREHENSIVE METABOLIC [id number] 00:00:00 Test Item Value Reference Range Interpretation Comments GLUCOSE (test code = 2217) 228 MG/DL BUN (test code = 2208) 23 MG/DL CREATININE (test code = 2214) 5.99 MG/DL eGFR AMER. (test code 11 ML/MIN/1.73 = 59349) eGFR NON- AMER. (test 10 ML/MIN/1.73 code = 31134) CALC BUN/CREAT (test code = 4 RATIO [...] (test code = 2219) 24 U/L LIPID [id number] 00:00:00 Test Item Value Reference Range Interpretation Comments CHOLESTEROL (test code = 2210) 335 MG/DL TRIGLYCERIDES (test code = 2232) 446 MG/DL HDL CHOLESTEROL (test code = 73 MG/DL 2220) CALC LDL CHOL (test code = 2237) (NOTE) MG/DL RISK RATIO LDL/HDL (test code = (NOTE) RATIO 2238) LIPID [id number] 00:00:00 Test Item Value Reference Range Interpretation Comments CHOLESTEROL (test code = 2210) 335 MG/DL TRIGLYCERIDES (test code = 2232) 446 MG/DL HDL CHOLESTEROL (test code = 73 MG/DL 2220) CALC LDL CHOL (test code = 2237) (NOTE) MG/DL RISK RATIO LDL/HDL (test code = (NOTE) RATIO 2238) [id number] 00:00:00 Test Item Value Reference Range Interpretation Comments TSH, THIRD GENERATION (test >100.000 UIU/ML code = 2821) [id number] 00:00:00 Test Item Value Reference Range Interpretation Comments TSH, THIRD GENERATION (test >100.000 UIU/ML code = 2821) [id number] 00:00:00 Test Item Value Reference Range Interpretation Comments TSH, THIRD GENERATION (test >100.000 UIU/ML code = 2821) CBC W/AUTO [id number] 00:00:00 Test Item Value Reference Range Interpretation [...] code = 1015) 298 K/UL CBC W/AUTO [id number] 00:00:00 Test Item Value Reference Range Interpretation [...] code = 1015) 298 K/UL CBC W/AUTO [id number] 00:00:00 Test Item Value Reference Range Interpretation [...] code = 1015) 298 K/UL COMPREHENSIVE METABOLIC [id number] 00:00:00 Test Item Value Reference Range Interpretation Comments GLUCOSE (test code = 2217) 228 MG/DL BUN (test code = 2208) 23 MG/DL CREATININE (test code = 2214) 5.99 MG/DL eGFR AMER. (test code 11 ML/MIN/1.73 = 41918) eGFR NON- AMER. (test 10 ML/MIN/1.73 code = 53222) CALC BUN/CREAT (test code = 4 RATIO [...] code = 2219) 24 U/L COMPREHENSIVE METABOLIC [id number] 00:00:00 Test Item Value Reference Range Interpretation Comments GLUCOSE (test code = 2217) 228 MG/DL BUN (test code = 2208) 23 MG/DL CREATININE (test code = 2214) 5.99 MG/DL eGFR AMER. (test code 11 ML/MIN/1.73 = 62270) eGFR NON- AMER. (test 10 ML/MIN/1.73 code = 65142) CALC BUN/CREAT (test code = 4 RATIO [...] (test code = 2219) 24 U/L LIPID [id number] 00:00:00 Test Item Value Reference Range Interpretation Comments CHOLESTEROL (test code = 2210) 335 MG/DL TRIGLYCERIDES (test code = 2232) 446 MG/DL HDL CHOLESTEROL (test code = 73 MG/DL 2220) CALC LDL CHOL (test code = 2237) (NOTE) MG/DL RISK RATIO LDL/HDL (test code = (NOTE) RATIO 2238) LIPID [id number] 00:00:00 Test Item Value Reference Range Interpretation Comments CHOLESTEROL (test code = 2210) 335 MG/DL TRIGLYCERIDES (test code = 2232) 446 MG/DL HDL CHOLESTEROL (test code = 73 MG/DL 2220) CALC LDL CHOL (test code = 2237) (NOTE) MG/DL RISK RATIO LDL/HDL (test code = (NOTE) RATIO 2238) [id number] 00:00:00 Test Item Value Reference Range Interpretation Comments TSH, THIRD GENERATION (test >100.000 UIU/ML code = 2821) [id number] 00:00:00 Test Item Value Reference Range Interpretation Comments TSH, THIRD GENERATION (test >100.000 UIU/ML code = 2821) [id number] 00:00:00 Test Item Value Reference Range Interpretation Comments TSH, THIRD GENERATION (test >100.000 UIU/ML code = 2821) CBC W/AUTO [id number] 00:00:00 Test Item Value Reference Range Interpretation [...] code = 1015) 298 K/UL CBC W/AUTO [id number] 00:00:00 Test Item Value Reference Range Interpretation [...] code = 1015) 298 K/UL CBC W/AUTO [id number] 00:00:00 Test Item Value Reference Range Interpretation [...] code = 1015) 298 K/UL COMPREHENSIVE METABOLIC [id number] 00:00:00 Test Item Value Reference Range Interpretation Comments GLUCOSE (test code = 2217) 228 MG/DL BUN (test code = 2208) 23 MG/DL CREATININE (test code = 2214) 5.99 MG/DL eGFR AMER. (test code 11 ML/MIN/1.73 = 63532) eGFR NON- AMER. (test 10 ML/MIN/1.73 code = 54871) CALC BUN/CREAT (test code = 4 RATIO [...] code = 2219) 24 U/L COMPREHENSIVE METABOLIC [id number] 00:00:00 Test Item Value Reference Range Interpretation Comments GLUCOSE (test code = 2217) 228 MG/DL BUN (test code = 2208) 23 MG/DL CREATININE (test code = 2214) 5.99 MG/DL eGFR AMER. (test code 11 ML/MIN/1.73 = 75457) eGFR NON- AMER. (test 10 ML/MIN/1.73 code = 71638) CALC BUN/CREAT (test code = 4 RATIO [...] (test code = 2219) 24 U/L LIPID [id number] 00:00:00 Test Item Value Reference Range Interpretation Comments CHOLESTEROL (test code = 2210) 335 MG/DL TRIGLYCERIDES (test code = 2232) 446 MG/DL HDL CHOLESTEROL (test code = 73 MG/DL 2220) CALC LDL CHOL (test code = 2237) (NOTE) MG/DL RISK RATIO LDL/HDL (test code = (NOTE) RATIO 2238) LIPID [id number] 00:00:00 Test Item Value Reference Range Interpretation Comments CHOLESTEROL (test code = 2210) 335 MG/DL TRIGLYCERIDES (test code = 2232) 446 MG/DL HDL CHOLESTEROL (test code = 73 MG/DL 2220) CALC LDL CHOL (test code = 2237) (NOTE) MG/DL RISK RATIO LDL/HDL (test code = (NOTE) RATIO 2238) [id number] 00:00:00 Test Item Value Reference Range Interpretation Comments TSH, THIRD GENERATION (test >100.000 UIU/ML code = 2821) [id number] 00:00:00 Test Item Value Reference Range Interpretation Comments TSH, THIRD GENERATION (test >100.000 UIU/ML code = 2821) [id number] 00:00:00 Test Item Value Reference Range Interpretation Comments TSH, THIRD GENERATION (test >100.000 UIU/ML code = 2821) CBC W/AUTO [id number] 00:00:00 Test Item Value Reference Range Interpretation [...] code = 1015) 298 K/UL CBC W/AUTO [id number] 00:00:00 Test Item Value Reference Range Interpretation [...] code = 1015) 298 K/UL CBC W/AUTO [id number] 00:00:00 Test Item Value Reference Range Interpretation [...] code = 1015) 298 K/UL COMPREHENSIVE METABOLIC [id number] 00:00:00 Test Item Value Reference Range Interpretation Comments GLUCOSE (test code = 2217) 228 MG/DL BUN (test code = 2208) 23 MG/DL CREATININE (test code = 2214) 5.99 MG/DL eGFR AMER. (test code 11 ML/MIN/1.73 = 51097) eGFR NON- AMER. (test 10 ML/MIN/1.73 code = 84095) CALC BUN/CREAT (test code = 4 RATIO [...] ALKALINE PHOSPHATASE (test 66 U/L code = 2203) AST (test code = 2218) 22 U/L ALT (test code = 2219) 24 U/L COMPREHENSIVE METABOLIC [id number] 00:00:00 Test Item Value Reference Range Interpretation Comments GLUCOSE (test code = 2217) 228 MG/DL BUN (test code = 2208) 23 MG/DL CREATININE (test code = 2214) 5.99 MG/DL eGFR AMER. (test code 11 ML/MIN/1.73 = 54245) eGFR NON- AMER. (test 10 ML/MIN/1.73 code = 13611) CALC BUN/CREAT (test code = 4 RATIO [...] (test code = 2219) 24 U/L LIPID [id number] 00:00:00 Test Item Value Reference Range Interpretation Comments CHOLESTEROL (test code = 2210) 335 MG/DL TRIGLYCERIDES (test code = 2232) 446 MG/DL HDL CHOLESTEROL (test code = 73 MG/DL 2220) CALC LDL CHOL (test code = 2237) (NOTE) MG/DL RISK RATIO LDL/HDL (test code = (NOTE) RATIO 2238) LIPID [id number] 00:00:00 Test Item Value Reference Range Interpretation Comments CHOLESTEROL (test code = 2210) 335 MG/DL TRIGLYCERIDES (test code = 2232) 446 MG/DL HDL CHOLESTEROL (test code = 73 MG/DL 2220) CALC LDL CHOL (test code = 2237) (NOTE) MG/DL RISK RATIO LDL/HDL (test code = (NOTE) RATIO 2238) [id number] 00:00:00 Test Item Value Reference Range Interpretation Comments TSH, THIRD GENERATION (test >100.000 UIU/ML code = 2821) [id number] 00:00:00 Test Item Value Reference Range Interpretation Comments TSH, THIRD GENERATION (test >100.000 UIU/ML code = 2821) [id number] 00:00:00 Test Item Value Reference Range Interpretation Comments TSH, THIRD GENERATION (test >100.000 UIU/ML code = 2821) [id number] 00:00:00 Test Item Value Reference Range Interpretation Comments TSH, THIRD GENERATION (test >100.000 UIU/ML code = 2821) [id number] 00:00:00 Test Item Value Reference Range Interpretation Comments TSH, THIRD GENERATION (test >100.000 UIU/ML code = 2821) [id number] 00:00:00 Test Item Value Reference Range Interpretation Comments TSH, THIRD GENERATION (test >100.000 UIU/ML code = 2821) LIPID [id number] 00:00:00 Test Item Value Reference Range Interpretation Comments CHOLESTEROL (test code = 2210) 316 MG/DL TRIGLYCERIDES (test code = 2232) 547 MG/DL HDL CHOLESTEROL (test code = 54 MG/DL 2220) CALC LDL CHOL (test code = 2237) (NOTE) MG/DL RISK RATIO LDL/HDL (test code = (NOTE) RATIO 2238) LIPID [id number] 00:00:00 Test Item Value Reference Range Interpretation Comments CHOLESTEROL (test code = 2210) 316 MG/DL TRIGLYCERIDES (test code = 2232) 547 MG/DL HDL CHOLESTEROL (test code = 54 MG/DL 2220) CALC LDL CHOL (test code = 2237) (NOTE) MG/DL RISK RATIO LDL/HDL (test code = (NOTE) RATIO 2238) [id number] 00:00:00 Test Item Value Reference Range Interpretation Comments TSH, THIRD GENERATION (test >100.000 UIU/ML code = 2821) [id number] 00:00:00 Test Item Value Reference Range Interpretation Comments TSH, THIRD GENERATION (test >100.000 UIU/ML code = 2821) [id number] 00:00:00 Test Item Value Reference Range Interpretation Comments TSH, THIRD GENERATION (test >100.000 UIU/ML code = 2821) LIPID [id number] 00:00:00 Test Item Value Reference Range Interpretation Comments CHOLESTEROL (test code = 2210) 316 MG/DL TRIGLYCERIDES (test code = 2232) 547 MG/DL HDL CHOLESTEROL (test code = 54 MG/DL 2220) CALC LDL CHOL (test code = 2237) (NOTE) MG/DL RISK RATIO LDL/HDL (test code = (NOTE) RATIO 2238) LIPID [id number] 00:00:00 Test Item Value Reference Range Interpretation Comments CHOLESTEROL (test code = 2210) 316 MG/DL TRIGLYCERIDES (test code = 2232) 547 MG/DL HDL CHOLESTEROL (test code = 54 MG/DL 2220) CALC LDL CHOL (test code = 2237) (NOTE) MG/DL RISK RATIO LDL/HDL (test code = (NOTE) RATIO 2238) [id number] 00:00:00 Test Item Value Reference Range Interpretation Comments TSH, THIRD GENERATION (test >100.000 UIU/ML code = 2821) [id number] 00:00:00 Test Item Value Reference Range Interpretation Comments TSH, THIRD GENERATION (test >100.000 UIU/ML code = 2821) [id number] 00:00:00 Test Item Value Reference Range Interpretation Comments TSH, THIRD GENERATION (test >100.000 UIU/ML code = 2821) [id number] 00:00:00 Test Item Value Reference Range Interpretation Comments TSH, THIRD GENERATION (test >100.000 UIU/ML code = 2821) LIPID [id number] 00:00:00 Test Item Value Reference Range Interpretation Comments CHOLESTEROL (test code = 2210) 316 MG/DL TRIGLYCERIDES (test code = 2232) 547 MG/DL HDL CHOLESTEROL (test code = 54 MG/DL 2220) CALC LDL CHOL (test code = 2237) (NOTE) MG/DL RISK RATIO LDL/HDL (test code = (NOTE) RATIO 2238) LIPID [id number] 00:00:00 Test Item Value Reference Range Interpretation Comments CHOLESTEROL (test code = 2210) 316 MG/DL TRIGLYCERIDES (test code = 2232) 547 MG/DL HDL CHOLESTEROL (test code = 54 MG/DL 2220) CALC LDL CHOL (test code = 2237) (NOTE) MG/DL RISK RATIO LDL/HDL (test code = (NOTE) RATIO 2238) [id number] 00:00:00 Test Item Value Reference Range Interpretation Comments TSH, THIRD GENERATION (test >100.000 UIU/ML code = 2821) LIPID [id number] 00:00:00 Test Item Value Reference Range Interpretation Comments CHOLESTEROL (test code = 2210) 316 MG/DL TRIGLYCERIDES (test code = 2232) 547 MG/DL HDL CHOLESTEROL (test code = 54 MG/DL 2220) CALC LDL CHOL (test code = 2237) (NOTE) MG/DL RISK RATIO LDL/HDL (test code = (NOTE) RATIO 2238) [id number] 00:00:00 Test Item Value Reference Range Interpretation Comments TSH, THIRD GENERATION (test >100.000 UIU/ML code = 2821) [id number] 00:00:00 Test Item Value Reference Range Interpretation Comments TSH, THIRD GENERATION (test >100.000 UIU/ML code = 2821) [id number] 00:00:00 Test Item Value Reference Range Interpretation Comments TSH, THIRD GENERATION (test >100.000 UIU/ML code = 2821) LIPID [id number] 00:00:00 Test Item Value Reference Range Interpretation Comments CHOLESTEROL (test code = 2210) 316 MG/DL TRIGLYCERIDES (test code = 2232) 547 MG/DL HDL CHOLESTEROL (test code = 54 MG/DL 2220) CALC LDL CHOL (test code = 2237) (NOTE) MG/DL RISK RATIO LDL/HDL (test code = (NOTE) RATIO 2238) LIPID [id number] 00:00:00 Test Item Value Reference Range Interpretation Comments CHOLESTEROL (test code = 2210) 316 MG/DL TRIGLYCERIDES (test code = 2232) 547 MG/DL HDL CHOLESTEROL (test code = 54 MG/DL 2220) CALC LDL CHOL (test code = 2237) (NOTE) MG/DL RISK RATIO LDL/HDL (test code = (NOTE) RATIO 2238) [id number] 00:00:00 Test Item Value Reference Range Interpretation Comments TSH, THIRD GENERATION (test >100.000 UIU/ML code = 2821) [id number] 00:00:00 Test Item Value Reference Range Interpretation Comments TSH, THIRD GENERATION (test >100.000 UIU/ML code = 2821) [id number] 00:00:00 Test Item Value Reference Range Interpretation Comments TSH, THIRD GENERATION (test >100.000 UIU/ML code = 2821) LIPID [id number] 00:00:00 Test Item Value Reference Range Interpretation Comments CHOLESTEROL (test code = 2210) 316 MG/DL TRIGLYCERIDES (test code = 2232) 547 MG/DL HDL CHOLESTEROL (test code = 54 MG/DL 2220) CALC LDL CHOL (test code = 2237) (NOTE) MG/DL RISK RATIO LDL/HDL (test code = (NOTE) RATIO 2238) LIPID [id number] 00:00:00 Test Item Value Reference Range Interpretation Comments CHOLESTEROL (test code = 2210) 316 MG/DL TRIGLYCERIDES (test code = 2232) 547 MG/DL HDL CHOLESTEROL (test code = 54 MG/DL 2220) CALC LDL CHOL (test code = 2237) (NOTE) MG/DL RISK RATIO LDL/HDL (test code = (NOTE) RATIO 2238) [id number] 00:00:00 Test Item Value Reference Range Interpretation Comments TSH, THIRD GENERATION (test >100.000 UIU/ML code = 2821) [id number] 00:00:00 Test Item Value Reference Range Interpretation Comments TSH, THIRD GENERATION (test >100.000 UIU/ML code = 2821) [id number] 00:00:00 Test Item Value Reference Range Interpretation Comments TSH, THIRD GENERATION (test >100.000 UIU/ML code = 2821) LIPID [id number] 00:00:00 Test Item Value Reference Range Interpretation Comments CHOLESTEROL (test code = 2210) 316 MG/DL TRIGLYCERIDES (test code = 2232) 547 MG/DL HDL CHOLESTEROL (test code = 54 MG/DL 2220) CALC LDL CHOL (test code = 2237) (NOTE) MG/DL RISK RATIO LDL/HDL (test code = (NOTE) RATIO 2238) LIPID [id number] 00:00:00 Test Item Value Reference Range Interpretation Comments CHOLESTEROL (test code = 2210) 316 MG/DL TRIGLYCERIDES (test code = 2232) 547 MG/DL HDL CHOLESTEROL (test code = 54 MG/DL 2220) CALC LDL CHOL (test code = 2237) (NOTE) MG/DL RISK RATIO LDL/HDL (test code = (NOTE) RATIO 2238) [id number] 00:00:00 Test Item Value Reference Range Interpretation Comments TSH, THIRD GENERATION (test >100.000 UIU/ML code = 2821) [id number] 00:00:00 Test Item Value Reference Range Interpretation Comments TSH, THIRD GENERATION (test >100.000 UIU/ML code = 2821) [id number] 00:00:00 Test Item Value Reference Range Interpretation Comments TSH, THIRD GENERATION (test >100.000 UIU/ML code = 2821) LIPID [id number] 00:00:00 Test Item Value Reference Range Interpretation Comments CHOLESTEROL (test code = 2210) 316 MG/DL TRIGLYCERIDES (test code = 2232) 547 MG/DL HDL CHOLESTEROL (test code = 54 MG/DL 2220) CALC LDL CHOL (test code = 2237) (NOTE) MG/DL RISK RATIO LDL/HDL (test code = (NOTE) RATIO 2238) LIPID [id number] 00:00:00 Test Item Value Reference Range Interpretation [...] code = Normal 762) HEPATITIS B SURFACE [id number] 09:48:00 Test Item Value Reference Range Interpretation [...] (BEAKER) (test code = 1+ few 966) [id number] 05:55:00 Test Item Value Reference Range Interpretation Comments PHOSPHORUS (BEAKER) (test code = 9.2 mg/dL 2.3-4.7 HH 604) [employer] ID - RA MBASIC METABOLIC [id number] 05:04:00 Test Item Value Reference Range Interpretation [...] S NOT APPLICABLE FOR DIALYSIS PATIEN TS. [employer] ID - RA MCBC WITH PLATELET COUNT + MANUAL [id number] 04:42:00 Test Item Value Reference Range Interpretation [...] (BEAKER) (test code = 413) BASIC METABOLIC [id number] 03:00:00 Test Item Value Reference Range Interpretation [...] S NOT APPLICABLE FOR DIALYSIS PATIEN TS. [employer] ID - RA [id number] 02:58:00 Test Item Value Reference Range Interpretation Comments PHOSPHORUS (BEAKER) (test code = 7.4 mg/dL 2.3-4.7 H 604) [employer]ificial [employer] Maker ID - RA MCBC W/PLT COUNT & AUTO [id number] 02:38:00 Test Item Value Reference Range Interpretation [...] PERCENT (BEAKER) (test code = 2801) SARS-COV2/RT-PCR ([facility])2019-12-14 11:10:00 Test Item Value Reference Range Interpretation Comments SARS-COV2/RT-PCR (test code Negative Not Detected, Negative, = 3071735) See external report for linked test SARS-COV-[address] [facility] (test code = 3678460) Negative results do not preclude SARS-CoV-2 infection [...] of the Act.Fact Sheet for Healthcare Pro viders:https://www.[employer]/Documents/Xpert%20Xpress%20SARS%20CoV-2/Fact%20Sh eets/302-3098%82HOUC-YWJ-0%20HEALTHCARE%20PROVIDERS%20FACT%20SHEET.pdfFact Sheet for Healthcare Patients:https://www.[employer]/Documents/Xpert%20Xpress%20SARS%20CoV-2/Fact%20Sheets/302-3801%20SARS-COV -2%20PATIENT%20FACT%20SHEET.pdfPerforming Laboratory:[facility], [place] [address]YOUYM METABOLIC [id number] 09:53:00 Test Item Value Reference Range Interpretation [...] S NOT APPLICABLE FOR DIALYSIS PATIEN TS. [employer]ificial [employer] Eye Maker ID - ROSIANGPROTHROMBIN [id number] 09:39:00 Test Item Value Reference Range Interpretation [...] 0-0 (BEAKER) (test code = 413) URINE [id number] 11:01:00 Test Item Value Reference Range Interpretation Comments CULTURE (BEAKER) ENTEROCOCCUS A 40-49,000 c ol/mL (test code = 1095) FAECALIS Enterococ cus faecalis Ampicillin (test S code = 26) Linezolid (test code S = 40) Nitrofurantoin (test S code = 23) Tetracycline (test R code = 2) Vancomycin (test S code = 13) <10,000 col/mL skin floraHEMOGLOBIN [id number] 00:00:00 Test Item Value Reference Range Interpretation Comments HEMOGLOBIN A1c (test code = 21819) 6.9 % HEMOGLOBIN [id number] 00:00:00 Test Item Value Reference Range Interpretation Comments HEMOGLOBIN A1c (test code = 80307) 6.9 % HEMOGLOBIN [id number] 00:00:00 Test Item Value Reference Range Interpretation Comments HEMOGLOBIN A1c (test code = 15181) 6.9 % LIPID [id number] 00:00:00 Test Item Value Reference Range Interpretation Comments CHOLESTEROL (test code = 2210) 309 MG/DL TRIGLYCERIDES (test code = 2232) 587 MG/DL HDL CHOLESTEROL (test code = 48 MG/DL 2220) CALC LDL CHOL (test code = 2237) (NOTE) MG/DL RISK RATIO LDL/HDL (test code = (NOTE) RATIO 2238) LIPID [id number] 00:00:00 Test Item Value Reference Range Interpretation [...] THYROX. BIND. CAPAC. (test 1.5 code = 41345) T4 (THYROXINE) (test code = <1.2 UG/DL 2819) CORRECTED T4 (FTI) (test code (NOTE) UG/DL = 2820) TSH, THIRD GENERATION (test >100.000 UIU/ML code = 2821) THYROID II PROFILE (TU,T4,FTI,TSH) [ADDED]2019-10-26 00:00:00 Test Item Value Reference Range Interpretation Comments T-UPTAKE (test code = 2817) 18.4 % THYROX. BIND. CAPAC. (test 1.5 code = 83497) T4 (THYROXINE) (test code = <1.2 UG/DL 2819) CORRECTED T4 (FTI) (test code (NOTE) UG/DL = 2820) TSH, THIRD GENERATION (test >100.000 UIU/ML code = 2821) HEMOGLOBIN [id number] 00:00:00 Test Item Value Reference Range Interpretation Comments HEMOGLOBIN A1c (test code = 56136) 6.9 % HEMOGLOBIN [id number] 00:00:00 Test Item Value Reference Range Interpretation Comments HEMOGLOBIN A1c (test code = 78067) 6.9 % HEMOGLOBIN [id number] 00:00:00 Test Item Value Reference Range Interpretation Comments HEMOGLOBIN A1c (test code = 41397) 6.9 % LIPID [id number] 00:00:00 Test Item Value Reference Range Interpretation Comments CHOLESTEROL (test code = 2210) 309 MG/DL TRIGLYCERIDES (test code = 2232) 587 MG/DL HDL CHOLESTEROL (test code = 48 MG/DL 2220) CALC LDL CHOL (test code = 2237) (NOTE) MG/DL RISK RATIO LDL/HDL (test code = (NOTE) RATIO 2238) LIPID [id number] 00:00:00 Test Item Value Reference Range Interpretation [...] THYROX. BIND. CAPAC. (test 1.5 code = 30684) T4 (THYROXINE) (test code = <1.2 UG/DL 2819) CORRECTED T4 (FTI) (test code (NOTE) UG/DL = 2820) TSH, THIRD GENERATION (test >100.000 UIU/ML code = 2821) THYROID II PROFILE (TU,T4,FTI,TSH) [ADDED]2019-10-26 00:00:00 Test Item Value Reference Range Interpretation Comments T-UPTAKE (test code = 2817) 18.4 % THYROX. BIND. CAPAC. (test 1.5 code = 10482) T4 (THYROXINE) (test code = <1.2 UG/DL 2819) CORRECTED T4 (FTI) (test code (NOTE) UG/DL = 2820) TSH, THIRD GENERATION (test >100.000 UIU/ML code = 2821) HEMOGLOBIN [id number] 00:00:00 Test Item Value Reference Range Interpretation Comments HEMOGLOBIN A1c (test code = 97455) 6.9 % HEMOGLOBIN [id number] 00:00:00 Test Item Value Reference Range Interpretation Comments HEMOGLOBIN A1c (test code = 53036) 6.9 % HEMOGLOBIN [id number] 00:00:00 Test Item Value Reference Range Interpretation Comments HEMOGLOBIN A1c (test code = 06198) 6.9 % HEMOGLOBIN [id number] 00:00:00 Test Item Value Reference Range Interpretation Comments HEMOGLOBIN A1c (test code = 81316) 6.9 % HEMOGLOBIN [id number] 00:00:00 Test Item Value Reference Range Interpretation Comments HEMOGLOBIN A1c (test code = 78632) 6.9 % LIPID [id number] 00:00:00 Test Item Value Reference Range Interpretation Comments CHOLESTEROL (test code = 2210) 309 MG/DL TRIGLYCERIDES (test code = 2232) 587 MG/DL HDL CHOLESTEROL (test code = 48 MG/DL 2220) CALC LDL CHOL (test code = 2237) (NOTE) MG/DL RISK RATIO LDL/HDL (test code = (NOTE) RATIO 2238) LIPID [id number] 00:00:00 Test Item Value Reference Range Interpretation [...] THYROX. BIND. CAPAC. (test 1.5 code = 15550) T4 (THYROXINE) (test code = <1.2 UG/DL 2819) CORRECTED T4 (FTI) (test code (NOTE) UG/DL = 2820) TSH, THIRD GENERATION (test >100.000 UIU/ML code = 2821) THYROID II PROFILE (TU,T4,FTI,TSH) [ADDED]2019-10-26 00:00:00 Test Item Value Reference Range Interpretation Comments T-UPTAKE (test code = 2817) 18.4 % THYROX. BIND. CAPAC. (test 1.5 code = 67222) T4 (THYROXINE) (test code = <1.2 UG/DL 2819) CORRECTED T4 (FTI) (test code (NOTE) UG/DL = 2820) TSH, THIRD GENERATION (test >100.000 UIU/ML code = 2821) LIPID [id number] 00:00:00 Test Item Value Reference Range Interpretation [...] THYROX. BIND. CAPAC. (test 1.5 code = 85989) T4 (THYROXINE) (test code = <1.2 UG/DL 2819) CORRECTED T4 (FTI) (test code (NOTE) UG/DL = 2820) TSH, THIRD GENERATION (test >100.000 UIU/ML code = 2821) HEMOGLOBIN [id number] 00:00:00 Test Item Value Reference Range Interpretation Comments HEMOGLOBIN A1c (test code = 81054) 6.9 % HEMOGLOBIN [id number] 00:00:00 Test Item Value Reference Range Interpretation Comments HEMOGLOBIN A1c (test code = 24882) 6.9 % HEMOGLOBIN [id number] 00:00:00 Test Item Value Reference Range Interpretation Comments HEMOGLOBIN A1c (test code = 49916) 6.9 % LIPID [id number] 00:00:00 Test Item Value Reference Range Interpretation Comments CHOLESTEROL (test code = 2210) 309 MG/DL TRIGLYCERIDES (test code = 2232) 587 MG/DL HDL CHOLESTEROL (test code = 48 MG/DL 2220) CALC LDL CHOL (test code = 2237) (NOTE) MG/DL RISK RATIO LDL/HDL (test code = (NOTE) RATIO 2238) LIPID [id number] 00:00:00 Test Item Value Reference Range Interpretation [...] THYROX. BIND. CAPAC. (test 1.5 code = 56929) T4 (THYROXINE) (test code = <1.2 UG/DL 2819) CORRECTED T4 (FTI) (test code (NOTE) UG/DL = 2820) TSH, THIRD GENERATION (test >100.000 UIU/ML code = 2821) THYROID II PROFILE (TU,T4,FTI,TSH) [ADDED]2019-10-26 00:00:00 Test Item Value Reference Range Interpretation Comments T-UPTAKE (test code = 2817) 18.4 % THYROX. BIND. CAPAC. (test 1.5 code = 61501) T4 (THYROXINE) (test code = <1.2 UG/DL 2819) CORRECTED T4 (FTI) (test code (NOTE) UG/DL = 2820) TSH, THIRD GENERATION (test >100.000 UIU/ML code = 2821) HEMOGLOBIN [id number] 00:00:00 Test Item Value Reference Range Interpretation Comments HEMOGLOBIN A1c (test code = 22350) 6.9 % HEMOGLOBIN [id number] 00:00:00 Test Item Value Reference Range Interpretation Comments HEMOGLOBIN A1c (test code = 43549) 6.9 % HEMOGLOBIN [id number] 00:00:00 Test Item Value Reference Range Interpretation Comments HEMOGLOBIN A1c (test code = 66800) 6.9 % LIPID [id number] 00:00:00 Test Item Value Reference Range Interpretation Comments CHOLESTEROL (test code = 2210) 309 MG/DL TRIGLYCERIDES (test code = 2232) 587 MG/DL HDL CHOLESTEROL (test code = 48 MG/DL 0) CALC LDL CHOL (test code = 2237) (NOTE) MG/DL RISK RATIO LDL/HDL (test code = (NOTE) RATIO 2238) LIPID [id number] 00:00:00 Test Item Value Reference Range Interpretation [...] THYROX. BIND. CAPAC. (test 1.5 code = 66572) T4 (THYROXINE) (test code = <1.2 UG/DL 2819) CORRECTED T4 (FTI) (test code (NOTE) UG/DL = 2820) TSH, THIRD GENERATION (test >100.000 UIU/ML code = 2821) THYROID II PROFILE (TU,T4,FTI,TSH) [ADDED]2019-10-26 00:00:00 Test Item Value Reference Range Interpretation Comments T-UPTAKE (test code = 2817) 18.4 % THYROX. BIND. CAPAC. (test 1.5 code = 04819) T4 (THYROXINE) (test code = <1.2 UG/DL 2819) CORRECTED T4 (FTI) (test code (NOTE) UG/DL = 2820) TSH, THIRD GENERATION (test >100.000 UIU/ML code = 2821) HEMOGLOBIN [id number] 00:00:00 Test Item Value Reference Range Interpretation Comments HEMOGLOBIN A1c (test code = 16719) 6.9 % HEMOGLOBIN [id number] 00:00:00 Test Item Value Reference Range Interpretation Comments HEMOGLOBIN A1c (test code = 07967) 6.9 % HEMOGLOBIN [id number] 00:00:00 Test Item Value Reference Range Interpretation Comments HEMOGLOBIN A1c (test code = 04585) 6.9 % LIPID [id number] 00:00:00 Test Item Value Reference Range Interpretation Comments CHOLESTEROL (test code = 2210) 309 MG/DL TRIGLYCERIDES (test code = 2232) 587 MG/DL HDL CHOLESTEROL (test code = 48 MG/DL 0) CALC LDL CHOL (test code = 2237) (NOTE) MG/DL RISK RATIO LDL/HDL (test code = (NOTE) RATIO 2238) LIPID [id number] 00:00:00 Test Item Value Reference Range Interpretation [...] THYROX. BIND. CAPAC. (test 1.5 code = 80492) T4 (THYROXINE) (test code = <1.2 UG/DL 2819) CORRECTED T4 (FTI) (test code (NOTE) UG/DL = 2820) TSH, THIRD GENERATION (test >100.000 UIU/ML code = 2821) THYROID II PROFILE (TU,T4,FTI,TSH) [ADDED]2019-10-26 00:00:00 Test Item Value Reference Range Interpretation Comments T-UPTAKE (test code = 2817) 18.4 % THYROX. BIND. CAPAC. (test 1.5 code = 34750) T4 (THYROXINE) (test code = <1.2 UG/DL 2819) CORRECTED T4 (FTI) (test code (NOTE) UG/DL = 2820) TSH, THIRD GENERATION (test >100.000 UIU/ML code = 2821) HEMOGLOBIN [id number] 00:00:00 Test Item Value Reference Range Interpretation Comments HEMOGLOBIN A1c (test code = 55935) 6.9 % HEMOGLOBIN [id number] 00:00:00 Test Item Value Reference Range Interpretation Comments HEMOGLOBIN A1c (test code = 42528) 6.9 % HEMOGLOBIN [id number] 00:00:00 Test Item Value Reference Range Interpretation Comments HEMOGLOBIN A1c (test code = 54443) 6.9 % LIPID [id number] 00:00:00 Test Item Value Reference Range Interpretation Comments CHOLESTEROL (test code = 2210) 309 MG/DL TRIGLYCERIDES (test code = 2232) 587 MG/DL HDL CHOLESTEROL (test code = 48 MG/DL 2220) CALC LDL CHOL (test code = 2237) (NOTE) MG/DL RISK RATIO LDL/HDL (test code = (NOTE) RATIO 2238) LIPID [id number] 00:00:00 Test Item Value Reference Range Interpretation [...] THYROX. BIND. CAPAC. (test 1.5 code = 94417) T4 (THYROXINE) (test code = <1.2 UG/DL 2819) CORRECTED T4 (FTI) (test code (NOTE) UG/DL = 2820) TSH, THIRD GENERATION (test >100.000 UIU/ML code = 2821) THYROID II PROFILE (TU,T4,FTI,TSH) [ADDED]2019-10-26 00:00:00 Test Item Value Reference Range Interpretation Comments T-UPTAKE (test code = 2817) 18.4 % THYROX. BIND. CAPAC. (test 1.5 code = 21884) T4 (THYROXINE) (test code = <1.2 UG/DL 2819) CORRECTED T4 (FTI) (test code (NOTE) UG/DL = 2820) TSH, THIRD GENERATION (test >100.000 UIU/ML code = 2821) HEMOGLOBIN [id number] 09:52:00 Test Item Value Reference Range Interpretation Comments HEMOGLOBIN A1C (BEAKER) (test code = 6.6 % 4.3-6.1 H 368) [employer] ID - [id number] 09:08:00 Test Item Value Reference Range Interpretation Comments PROSTATE SPECIFIC ANTIGEN (BEAKER) 0.5 ng/mL 0.0-4.0 (test code = 844) [employer] ID - [place] FLIPID [id number] 08:00:00 Test Item Value Reference Range Interpretation [...] Borderline 130-159 High 160-189 Very High >=190 [employer] Maker ID - SIMONE CTHYROID II PROFILE (T3U, T4, T7, TSH)2019-07-05 00:00:00 Test Item Value Reference Range Interpretation Comments T-UPTAKE (test code = 2817) 24.3 % THYROX. BIND. CAPAC. (test 1.3 code = 46206) T4 (THYROXINE) (test code = 3.6 UG/DL 2819) CORRECTED T4 (FTI) (test code 2.8 UG/DL = 2820) TSH, THIRD GENERATION (test >100.000 UIU/ML code = 2821) THYROID II PROFILE (T3U, T4, T7, TSH)2019-07-05 00:00:00 Test Item Value Reference Range Interpretation Comments T-UPTAKE (test code = 2817) 24.3 % THYROX. BIND. CAPAC. (test 1.3 code = 64859) T4 (THYROXINE) (test code = 3.6 UG/DL 2819) CORRECTED T4 (FTI) (test code 2.8 UG/DL = 2820) TSH, THIRD GENERATION (test >100.000 UIU/ML code = 2821) THYROID II PROFILE (T3U, T4, T7, TSH)2019-07-05 00:00:00 Test Item Value Reference Range Interpretation Comments T-UPTAKE (test code = 2817) 24.3 % THYROX. BIND. CAPAC. (test 1.3 code = 82739) T4 (THYROXINE) (test code = 3.6 UG/DL 2819) CORRECTED T4 (FTI) (test code 2.8 UG/DL = 2820) TSH, THIRD GENERATION (test >100.000 UIU/ML code = 2821) THYROID II PROFILE (T3U, T4, T7, TSH)2019-07-05 00:00:00 Test Item Value Reference Range Interpretation Comments T-UPTAKE (test code = 2817) 24.3 % THYROX. BIND. CAPAC. (test 1.3 code = 84437) T4 (THYROXINE) (test code = 3.6 UG/DL 2819) CORRECTED T4 (FTI) (test code 2.8 UG/DL = 2820) TSH, THIRD GENERATION (test >100.000 UIU/ML code = 2821) THYROID II PROFILE (T3U, T4, T7, TSH)2019-07-05 00:00:00 Test Item Value Reference Range Interpretation Comments T-UPTAKE (test code = 2817) 24.3 % THYROX. BIND. CAPAC. (test 1.3 code = 24286) T4 (THYROXINE) (test code = 3.6 UG/DL 2819) CORRECTED T4 (FTI) (test code 2.8 UG/DL = 2820) TSH, THIRD GENERATION (test >100.000 UIU/ML code = 2821) THYROID II PROFILE (T3U, T4, T7, TSH)2019-07-05 00:00:00 Test Item Value Reference Range Interpretation Comments T-UPTAKE (test code = 2817) 24.3 % THYROX. BIND. CAPAC. (test 1.3 code = 86835) T4 (THYROXINE) (test code = 3.6 UG/DL 2819) CORRECTED T4 (FTI) (test code 2.8 UG/DL = 2820) TSH, THIRD GENERATION (test >100.000 UIU/ML code = 2821) THYROID II PROFILE (T3U, T4, T7, TSH)2019-07-05 00:00:00 Test Item Value Reference Range Interpretation Comments T-UPTAKE (test code = 2817) 24.3 % THYROX. BIND. CAPAC. (test 1.3 code = 16227) T4 (THYROXINE) (test code = 3.6 UG/DL 2819) CORRECTED T4 (FTI) (test code 2.8 UG/DL = 2820) TSH, THIRD GENERATION (test >100.000 UIU/ML code = 2821) THYROID II PROFILE (T3U, T4, T7, TSH)2019-07-05 00:00:00 Test Item Value Reference Range Interpretation Comments T-UPTAKE (test code = 2817) 24.3 % THYROX. BIND. CAPAC. (test 1.3 code = 69766) T4 (THYROXINE) (test code = 3.6 UG/DL 2819) CORRECTED T4 (FTI) (test code 2.8 UG/DL = 2820) TSH, THIRD GENERATION (test >100.000 UIU/ML code = 2821) THYROID II PROFILE (T3U, T4, T7, TSH)2019-07-05 00:00:00 Test Item Value Reference Range Interpretation Comments T-UPTAKE (test code = 2817) 24.3 % THYROX. BIND. CAPAC. (test 1.3 code = 82107) T4 (THYROXINE) (test code = 3.6 UG/DL 2819) CORRECTED T4 (FTI) (test code 2.8 UG/DL = 2820) TSH, THIRD GENERATION (test >100.000 UIU/ML code = 2821) THYROID II PROFILE (T3U, T4, T7, TSH)2019-07-05 00:00:00 Test Item Value Reference Range Interpretation Comments T-UPTAKE (test code = 2817) 24.3 % THYROX. BIND. CAPAC. (test 1.3 code = 03744) T4 (THYROXINE) (test code = 3.6 UG/DL 2819) CORRECTED T4 (FTI) (test code 2.8 UG/DL = 2820) TSH, THIRD GENERATION (test >100.000 UIU/ML code = 2821) THYROID II PROFILE (T3U, T4, T7, TSH)2019-07-05 00:00:00 Test Item Value Reference Range Interpretation Comments T-UPTAKE (test code = 2817) 24.3 % THYROX. BIND. CAPAC. (test 1.3 code = 32312) T4 (THYROXINE) (test code = 3.6 UG/DL 2819) CORRECTED T4 (FTI) (test code 2.8 UG/DL = 2820) TSH, THIRD GENERATION (test >100.000 UIU/ML code = 2821) THYROID II PROFILE (T3U, T4, T7, TSH)2019-07-05 00:00:00 Test Item Value Reference Range Interpretation Comments T-UPTAKE (test code = 2817) 24.3 % THYROX. BIND. CAPAC. (test 1.3 code = 88104) T4 (THYROXINE) (test code = 3.6 UG/DL 2819) CORRECTED T4 (FTI) (test code 2.8 UG/DL = 2820) TSH, THIRD GENERATION (test >100.000 UIU/ML code = 2821) THYROID II PROFILE (T3U, T4, T7, TSH)2019-07-05 00:00:00 Test Item Value Reference Range Interpretation Comments T-UPTAKE (test code = 2817) 24.3 % THYROX. BIND. CAPAC. (test 1.3 code = 33474) T4 (THYROXINE) (test code = 3.6 UG/DL 2819) CORRECTED T4 (FTI) (test code 2.8 UG/DL = 2820) TSH, THIRD GENERATION (test >100.000 UIU/ML code = 2821) THYROID II PROFILE (T3U, T4, T7, TSH)2019-07-05 00:00:00 Test Item Value Reference Range Interpretation Comments T-UPTAKE (test code = 2817) 24.3 % THYROX. BIND. CAPAC. (test 1.3 code = 39121) T4 (THYROXINE) (test code = 3.6 UG/DL 2819) CORRECTED T4 (FTI) (test code 2.8 UG/DL = 2820) TSH, THIRD GENERATION (test >100.000 UIU/ML code = 2821) THYROID II PROFILE (T3U, T4, T7, TSH)2019-07-05 00:00:00 Test Item Value Reference Range Interpretation Comments T-UPTAKE (test code = 2817) 24.3 % THYROX. BIND. CAPAC. (test 1.3 code = 73420) T4 (THYROXINE) (test code = 3.6 UG/DL 2819) CORRECTED T4 (FTI) (test code 2.8 UG/DL = 2820) TSH, THIRD GENERATION (test >100.000 UIU/ML code = 2821) URINE [id number] 14:35:00 Test Item Value Reference Range Interpretation Comments CULTURE (BEAKER) ENTEROCOCCUS A 10-19,000 c ol/mL (test code = 1095) FAECALIS Enterococ cus faecalis Ampicillin (test S code = 26) Levofloxacin (test S code = 22) Linezolid (test code S = 40) Nitrofurantoin (test S code = 23) Tetracycline (test R code = 2) Vancomycin (test S code = 13) 10-19,000 col/mL skin [id number] 10:31:00 Test Item Value Reference Range Interpretation Comments RPR SCREEN (BEAKER) (test code = Nonreactive Nonreactive 420) U/S, ABDOMINAL, [id number] 16:14:00Reason for Exam:->Kidney transplant evaluation; comment on [...] MDReport Verified Date/Time: 05/23/2019 16:14:42 Reading Location: [address] Radiology Reading Room RAD, CHEST, 2 [id number] 16:02:00 Reason for Exam:->Pre kidney transplant evaluation.FINAL [...] MDReport Verified Date/Time: 05/23/2019 16:02:27 Reading Location: [address] Radiology Reading Room CYTOMEGALOVIRUS ANTIBODY, [id number] 15:17:00 Test Item Value Reference Range Interpretation Comments CYTOMEGALOVIRUS, IGG (BEAKER) Positive Negative, Equivocal A (test code = 3429) CMV IgG Result Interpretation: </= 0.8 Al Negative 0.9-1.0 Al Equivocal >/=1.1 Al PositiveCYTOMEGALOVIRUS ANTIBODY, [id number] 15:17:00 Test Item Value Reference Range Interpretation Comments CYTOMEGALOVIRUS IGM ANTIBODY Negative Negative, Equivocal (BEAKER) (test code = 3437) CMV IgM Result Interpretation: </= 0.8 Al Negative 0.9-1.0 Al Equivocal >/= 1.1 Al PositiveEBV ANTIBODY, [id number] 15:17:00 Test Item Value Reference Range Interpretation Comments NIHARIKA GRAYSON VIRAL CAPSID Positive Negative, Equivocal A ANTIGEN IGG (BEAKER) (test code = 3415) Niharika Grayson Viral Capsid Antigen IgG Result Interpretation: </= 0.8 Al Negative 0.9-1.0 Al Equivocal >/= 1.1 Al PositiveEBV ANTIBODY, [id number] 15:17:00 Test Item Value Reference Range Interpretation Comments NIHARIKA GRAYSON VIRAL CAPSID Negative Negative, Equivocal ANTIGEN IGM (BEAKER) (test code = 3418) Niharika Grayson Viral Capsid Antigen IgM Result Interpretation: </= 0.8 Al Negative 0.9-1.0 Al Equivocal >/= 1.1 Al PositiveVARICELLA ZOSTER ANTIBODY, [id number] 15:17:00 Test Item Value Reference Range Interpretation Comments VARICELLA ZOSTER IGG (AL) (BEAKER) 3.4 (test code = 3197) VARICELLA ZOSTER RESULT INTERPRETATIONS: <=0.8 Al Nonreactive: Presumed non- immune to VZV 0.9-1.0Al Equivocal >=1.1 Al Reactive: Presumed immune to VZV HEPATITIS B SURFACE [id number] 12:59:00 Test Item Value Reference Range Interpretation Comments HEPATITIS B SURFACE ANTIBODY 59677.3 mIU/mL <8.0 H (BEAKER) (test code = 647) [employer] ID - TIKAEPATITIS B SURFACE [id number] 12:47:00 Test Item Value Reference Range Interpretation Comments HEPATITIS B SURFACE ANTIGEN (2) Nonreactive Nonreactive (BEAKER) (test code = 2585) [employer] ID - TIKAEPATITIS B CORE ANTIBODY, [id number] 12:47:00 Test Item Value Reference Range Interpretation Comments HEPATITIS B CORE IGM ANTIBODY Nonreactive Nonreactive (BEAKER) (test code = 645) [employer] ID - TIKAEPATITIS C [id number] 12:47:00 Test Item Value Reference Range Interpretation Comments HEPATITIS C ANTIBODY (BEAKER) Nonreactive Nonreactive (test code = 367) [employer] ID - TIKAIV-1 ANTIGEN WITH HIV-1/2 [id number] 12:47:00 Test Item Value Reference Range Interpretation Comments HIV-1 ANTIGEN WITH HIV 1\T\2 Nonreactive Nonreactive ANTIBODY (2) (BEAKER) (test code = 2586) [employer] ID - NANCYGPTH, [id number] 12:03:00 Test Item Value Reference Range Interpretation Comments PARATHYROID HORMONE INTACT 430.9 pg/mL 8.5-72.5 H (BEAKER) (test code = 577) [employer] ID - LACOMPREHENSIVE METABOLIC [id number] 11:56:00 Test Item Value Reference Range Interpretation [...] S NOT APPLICABLE FOR DIALYSIS PATIEN TS. [employer] ID - LAURIC [id number] 11:55:00 Test Item Value Reference Range Interpretation Comments URIC ACID (BEAKER) (test code = 5.5 mg/dL 2.6-7.2 773) [employer] ID - [id number] 11:55:00 Test Item Value Reference Range Interpretation Comments PHOSPHORUS (BEAKER) (test code = 5.5 mg/dL 2.3-4.7 H 604) [employer] ID - LAGAMMA GLUTAMYL TRANSFERASE (GGT)2019-05-23 11:55:00 Test Item Value Reference Range Interpretation Comments GAMMA GLUTAMYL TRANSFERASE (BEAKER) 20 U/L 9-64 (test code = 364) [employer] ID - LALACTATE DEHYDROGENASE (LDH)2019-05-23 11:55:00 Test Item Value Reference Range Interpretation Comments LACTATE DEHYDROGENASE (BEAKER) (test 249 U/L 125-220 H code = 635) [employer] ID - LAURINALYSIS W/ [id number] 11:43:00 Test Item Value Reference Range Interpretation [...] < /HPF SOURCE(BEAKER) (test code = 2795) [employer] ID - [auto][employer] ID - [id number] 11:32:00 Test Item Value Reference Range Interpretation [...] 2.5-3.5 for patients wiht mechanical heart valves.PROTHROMBIN TIME/[id number] 11:31:00 Test Item Value Reference Range Interpretation [...] mechanical heart valves.CBC W/PLT COUNT & AUTO [id number] 11:27:00 Test Item Value Reference Range Interpretation [...] 0-1 PERCENT (BEAKER) (test code = 2801) [id number] 00:00:00 Test Item Value Reference Range Interpretation Comments TSH, THIRD GENERATION (test >100.000 UIU/ML code = 2821) [id number] 00:00:00 Test Item Value Reference Range Interpretation Comments TSH, THIRD GENERATION (test >100.000 UIU/ML code = 2821) [id number] 00:00:00 Test Item Value Reference Range Interpretation Comments TSH, THIRD GENERATION (test >100.000 UIU/ML code = 2821) [id number] 00:00:00 Test Item Value Reference Range Interpretation Comments TSH, THIRD GENERATION (test >100.000 UIU/ML code = 2821) [id number] 00:00:00 Test Item Value Reference Range Interpretation Comments TSH, THIRD GENERATION (test >100.000 UIU/ML code = 2821) [id number] 00:00:00 Test Item Value Reference Range Interpretation Comments TSH, THIRD GENERATION (test >100.000 UIU/ML code = 2821) [id number] 00:00:00 Test Item Value Reference Range Interpretation Comments TSH, THIRD GENERATION (test >100.000 UIU/ML code = 2821) [id number] 00:00:00 Test Item Value Reference Range Interpretation Comments TSH, THIRD GENERATION (test >100.000 UIU/ML code = 2821) [id number] 00:00:00 Test Item Value Reference Range Interpretation Comments TSH, THIRD GENERATION (test >100.000 UIU/ML code = 2821) [id number] 00:00:00 Test Item Value Reference Range Interpretation Comments TSH, THIRD GENERATION (test >100.000 UIU/ML code = 2821) [id number] 00:00:00 Test Item Value Reference Range Interpretation Comments TSH, THIRD GENERATION (test >100.000 UIU/ML code = 2821) [id number] 00:00:00 Test Item Value Reference Range Interpretation Comments TSH, THIRD GENERATION (test >100.000 UIU/ML code = 2821) [id number] 00:00:00 Test Item Value Reference Range Interpretation Comments TSH, THIRD GENERATION (test >100.000 UIU/ML code = 2821) [id number] 00:00:00 Test Item Value Reference Range Interpretation Comments TSH, THIRD GENERATION (test >100.000 UIU/ML code = 2821) [id number] 00:00:00 Test Item Value Reference Range Interpretation Comments TSH, THIRD GENERATION (test >100.000 UIU/ML code = 2821) [id number] 00:00:00 Test Item Value Reference Range Interpretation Comments TSH, THIRD GENERATION (test >100.000 UIU/ML code = 2821) [id number] 00:00:00 Test Item Value Reference Range Interpretation Comments TSH, THIRD GENERATION (test >100.000 UIU/ML code = 2821) [id number] 00:00:00 Test Item Value Reference Range Interpretation Comments TSH, THIRD GENERATION (test >100.000 UIU/ML code = 2821) [id number] 00:00:00 Test Item Value Reference Range Interpretation Comments TSH, THIRD GENERATION (test >100.000 UIU/ML code = 2821) [id number] 00:00:00 Test Item Value Reference Range Interpretation Comments TSH, THIRD GENERATION (test >100.000 UIU/ML code = 2821) [id number] 00:00:00 Test Item Value Reference Range Interpretation Comments TSH, THIRD GENERATION (test >100.000 UIU/ML code = 2821) [id number] 00:00:00 Test Item Value Reference Range Interpretation Comments TSH, THIRD GENERATION (test >100.000 UIU/ML code = 2821) [id number] 00:00:00 Test Item Value Reference Range Interpretation Comments TSH, THIRD GENERATION (test >100.000 UIU/ML code = 2821) LIPID [id number] 00:00:00 Test Item Value Reference Range Interpretation Comments CHOLESTEROL (test code = 2210) 201 MG/DL TRIGLYCERIDES (test code = 2232) 227 MG/DL HDL CHOLESTEROL (test code = 2220) 52 MG/DL CALC LDL CHOL (test code = 2237) 104 MG/DL RISK RATIO LDL/HDL (test code = 1.99 RATIO 2238) LIPID [id number] 00:00:00 Test Item Value Reference Range Interpretation Comments CHOLESTEROL (test code = 2210) 201 MG/DL TRIGLYCERIDES (test code = 2232) 227 MG/DL HDL CHOLESTEROL (test code = 2220) 52 MG/DL CALC LDL CHOL (test code = 2237) 104 MG/DL RISK RATIO LDL/HDL (test code = 1.99 RATIO 2238) [id number] 00:00:00 Test Item Value Reference Range Interpretation Comments TSH, THIRD GENERATION (test >100.000 UIU/ML code = 2821) [id number] 00:00:00 Test Item Value Reference Range Interpretation Comments TSH, THIRD GENERATION (test >100.000 UIU/ML code = 2821) [id number] 00:00:00 Test Item Value Reference Range Interpretation Comments TSH, THIRD GENERATION (test >100.000 UIU/ML code = 2821) LIPID [id number] 00:00:00 Test Item Value Reference Range Interpretation Comments CHOLESTEROL (test code = 2210) 201 MG/DL TRIGLYCERIDES (test code = 2232) 227 MG/DL HDL CHOLESTEROL (test code = 2220) 52 MG/DL CALC LDL CHOL (test code = 2237) 104 MG/DL RISK RATIO LDL/HDL (test code = 1.99 RATIO 2238) LIPID [id number] 00:00:00 Test Item Value Reference Range Interpretation Comments CHOLESTEROL (test code = 2210) 201 MG/DL TRIGLYCERIDES (test code = 2232) 227 MG/DL HDL CHOLESTEROL (test code = 2220) 52 MG/DL CALC LDL CHOL (test code = 2237) 104 MG/DL RISK RATIO LDL/HDL (test code = 1.99 RATIO 2238) [id number] 00:00:00 Test Item Value Reference Range Interpretation Comments TSH, THIRD GENERATION (test >100.000 UIU/ML code = 2821) [id number] 00:00:00 Test Item Value Reference Range Interpretation Comments TSH, THIRD GENERATION (test >100.000 UIU/ML code = 2821) [id number] 00:00:00 Test Item Value Reference Range Interpretation Comments TSH, THIRD GENERATION (test >100.000 UIU/ML code = 2821) LIPID [id number] 00:00:00 Test Item Value Reference Range Interpretation Comments CHOLESTEROL (test code = 2210) 201 MG/DL TRIGLYCERIDES (test code = 2232) 227 MG/DL HDL CHOLESTEROL (test code = 2220) 52 MG/DL CALC LDL CHOL (test code = 2237) 104 MG/DL RISK RATIO LDL/HDL (test code = 1.99 RATIO 2238) LIPID [id number] 00:00:00 Test Item Value Reference Range Interpretation Comments CHOLESTEROL (test code = 2210) 201 MG/DL TRIGLYCERIDES (test code = 2232) 227 MG/DL HDL CHOLESTEROL (test code = 2220) 52 MG/DL CALC LDL CHOL (test code = 2237) 104 MG/DL RISK RATIO LDL/HDL (test code = 1.99 RATIO 2238) LIPID [id number] 00:00:00 Test Item Value Reference Range Interpretation Comments CHOLESTEROL (test code = 2210) 201 MG/DL TRIGLYCERIDES (test code = 2232) 227 MG/DL HDL CHOLESTEROL (test code = 2220) 52 MG/DL CALC LDL CHOL (test code = 2237) 104 MG/DL RISK RATIO LDL/HDL (test code = 1.99 RATIO 2238) [id number] 00:00:00 Test Item Value Reference Range Interpretation Comments TSH, THIRD GENERATION (test >100.000 UIU/ML code = 2821) [id number] 00:00:00 Test Item Value Reference Range Interpretation Comments TSH, THIRD GENERATION (test >100.000 UIU/ML code = 2821) [id number] 00:00:00 Test Item Value Reference Range Interpretation Comments TSH, THIRD GENERATION (test >100.000 UIU/ML code = 2821) [id number] 00:00:00 Test Item Value Reference Range Interpretation Comments TSH, THIRD GENERATION (test >100.000 UIU/ML code = 2821) [id number] 00:00:00 Test Item Value Reference Range Interpretation Comments TSH, THIRD GENERATION (test >100.000 UIU/ML code = 2821) LIPID [id number] 00:00:00 Test Item Value Reference Range Interpretation Comments CHOLESTEROL (test code = 2210) 201 MG/DL TRIGLYCERIDES (test code = 2232) 227 MG/DL HDL CHOLESTEROL (test code = 2220) 52 MG/DL CALC LDL CHOL (test code = 2237) 104 MG/DL RISK RATIO LDL/HDL (test code = 1.99 RATIO 2238) LIPID [id number] 00:00:00 Test Item Value Reference Range Interpretation Comments CHOLESTEROL (test code = 2210) 201 MG/DL TRIGLYCERIDES (test code = 2232) 227 MG/DL HDL CHOLESTEROL (test code = 2220) 52 MG/DL CALC LDL CHOL (test code = 2237) 104 MG/DL RISK RATIO LDL/HDL (test code = 1.99 RATIO 2238) [id number] 00:00:00 Test Item Value Reference Range Interpretation Comments TSH, THIRD GENERATION (test >100.000 UIU/ML code = 2821) [id number] 00:00:00 Test Item Value Reference Range Interpretation Comments TSH, THIRD GENERATION (test >100.000 UIU/ML code = 2821) [id number] 00:00:00 Test Item Value Reference Range Interpretation Comments TSH, THIRD GENERATION (test >100.000 UIU/ML code = 2821) LIPID [id number] 00:00:00 Test Item Value Reference Range Interpretation Comments CHOLESTEROL (test code = 2210) 201 MG/DL TRIGLYCERIDES (test code = 2232) 227 MG/DL HDL CHOLESTEROL (test code = 2220) 52 MG/DL CALC LDL CHOL (test code = 2237) 104 MG/DL RISK RATIO LDL/HDL (test code = 1.99 RATIO 2238) LIPID [id number] 00:00:00 Test Item Value Reference Range Interpretation Comments CHOLESTEROL (test code = 2210) 201 MG/DL TRIGLYCERIDES (test code = 2232) 227 MG/DL HDL CHOLESTEROL (test code = 2220) 52 MG/DL CALC LDL CHOL (test code = 2237) 104 MG/DL RISK RATIO LDL/HDL (test code = 1.99 RATIO 2238) [id number] 00:00:00 Test Item Value Reference Range Interpretation Comments TSH, THIRD GENERATION (test >100.000 UIU/ML code = 2821) [id number] 00:00:00 Test Item Value Reference Range Interpretation Comments TSH, THIRD GENERATION (test >100.000 UIU/ML code = 2821) [id number] 00:00:00 Test Item Value Reference Range Interpretation Comments TSH, THIRD GENERATION (test >100.000 UIU/ML code = 2821) LIPID [id number] 00:00:00 Test Item Value Reference Range Interpretation Comments CHOLESTEROL (test code = 2210) 201 MG/DL TRIGLYCERIDES (test code = 2232) 227 MG/DL HDL CHOLESTEROL (test code = 2220) 52 MG/DL CALC LDL CHOL (test code = 2237) 104 MG/DL RISK RATIO LDL/HDL (test code = 1.99 RATIO 2238) LIPID [id number] 00:00:00 Test Item Value Reference Range Interpretation Comments CHOLESTEROL (test code = 2210) 201 MG/DL TRIGLYCERIDES (test code = 2232) 227 MG/DL HDL CHOLESTEROL (test code = 2220) 52 MG/DL CALC LDL CHOL (test code = 2237) 104 MG/DL RISK RATIO LDL/HDL (test code = 1.99 RATIO 2238) [id number] 00:00:00 Test Item Value Reference Range Interpretation Comments TSH, THIRD GENERATION (test >100.000 UIU/ML code = 2821) [id number] 00:00:00 Test Item Value Reference Range Interpretation Comments TSH, THIRD GENERATION (test >100.000 UIU/ML code = 2821) [id number] 00:00:00 Test Item Value Reference Range Interpretation Comments TSH, THIRD GENERATION (test >100.000 UIU/ML code = 2821) LIPID [id number] 00:00:00 Test Item Value Reference Range Interpretation Comments CHOLESTEROL (test code = 2210) 201 MG/DL TRIGLYCERIDES (test code = 2232) 227 MG/DL HDL CHOLESTEROL (test code = 2220) 52 MG/DL CALC LDL CHOL (test code = 2237) 104 MG/DL RISK RATIO LDL/HDL (test code = 1.99 RATIO 2238) LIPID [id number] 00:00:00 Test Item Value Reference Range Interpretation Comments CHOLESTEROL (test code = 2210) 201 MG/DL TRIGLYCERIDES (test code = 2232) 227 MG/DL HDL CHOLESTEROL (test code = 2220) 52 MG/DL CALC LDL CHOL (test code = 2237) 104 MG/DL RISK RATIO LDL/HDL (test code = 1.99 RATIO 2238) [id number] 00:00:00 Test Item Value Reference Range Interpretation Comments TSH, THIRD GENERATION (test >100.000 UIU/ML code = 2821) [id number] 00:00:00 Test Item Value Reference Range Interpretation Comments TSH, THIRD GENERATION (test >100.000 UIU/ML code = 2821) [id number] 00:00:00 Test Item Value Reference Range Interpretation Comments TSH, THIRD GENERATION (test >100.000 UIU/ML code = 2821) COMPREHENSIVE METABOLIC [id number] 00:00:00 Test Item Value Reference Range Interpretation Comments GLUCOSE (test code = 2217) 103 MG/DL BUN (test code = 2208) 35 MG/DL CREATININE (test code = 2214) 6.37 MG/DL eGFR AMER. (test code 11 ML/MIN/1.73 = 27496) eGFR NON- AMER. (test 9 ML/MIN/1.73 code = 18569) CALC BUN/CREAT (test code = 5 RATIO [...] code = 2219) 10 U/L COMPREHENSIVE METABOLIC [id number] 00:00:00 Test Item Value Reference Range Interpretation Comments GLUCOSE (test code = 2217) 103 MG/DL BUN (test code = 2208) 35 MG/DL CREATININE (test code = 2214) 6.37 MG/DL eGFR AMER. (test code 11 ML/MIN/1.73 = 05541) eGFR NON- AMER. (test 9 ML/MIN/1.73 code = 29381) CALC BUN/CREAT (test code = 5 RATIO [...] (test code = 2219) 10 U/L LIPID [id number] 00:00:00 Test Item Value Reference Range Interpretation Comments CHOLESTEROL (test code = 2210) 240 MG/DL TRIGLYCERIDES (test code = 2232) 395 MG/DL HDL CHOLESTEROL (test code = 2220) 55 MG/DL CALC LDL CHOL (test code = 2237) 106 MG/DL RISK RATIO LDL/HDL (test code = 1.93 RATIO 2238) LIPID [id number] 00:00:00 Test Item Value Reference Range Interpretation Comments CHOLESTEROL (test code = 2210) 240 MG/DL TRIGLYCERIDES (test code = 2232) 395 MG/DL HDL CHOLESTEROL (test code = 2220) 55 MG/DL CALC LDL CHOL (test code = 2237) 106 MG/DL RISK RATIO LDL/HDL (test code = 1.93 RATIO 2238) CBC W/AUTO [id number] 00:00:00 Test Item Value Reference Range Interpretation [...] code = 1015) 327 K/UL CBC W/AUTO [id number] 00:00:00 Test Item Value Reference Range Interpretation [...] code = 1015) 327 K/UL CBC W/AUTO [id number] 00:00:00 Test Item Value Reference Range Interpretation [...] (test code = 1015) 327 K/UL HEMOGLOBIN [id number] 00:00:00 Test Item Value Reference Range Interpretation Comments HEMOGLOBIN A1c (test code = 05921) 6.2 % HEMOGLOBIN [id number] 00:00:00 Test Item Value Reference Range Interpretation Comments HEMOGLOBIN A1c (test code = 10697) 6.2 % HEMOGLOBIN [id number] 00:00:00 Test Item Value Reference Range Interpretation Comments HEMOGLOBIN A1c (test code = 29395) 6.2 % [id number] 00:00:00 Test Item Value Reference Range Interpretation Comments TSH, THIRD GENERATION (test >100.000 UIU/ML code = 2821) [id number] 00:00:00 Test Item Value Reference Range Interpretation Comments TSH, THIRD GENERATION (test >100.000 UIU/ML code = 2821) [id number] 00:00:00 Test Item Value Reference Range Interpretation Comments TSH, THIRD GENERATION (test >100.000 UIU/ML code = 2821) COMPREHENSIVE METABOLIC [id number] 00:00:00 Test Item Value Reference Range Interpretation Comments GLUCOSE (test code = 2217) 103 MG/DL BUN (test code = 2208) 35 MG/DL CREATININE (test code = 2214) 6.37 MG/DL eGFR AMER. (test code 11 ML/MIN/1.73 = 52569) eGFR NON- AMER. (test 9 ML/MIN/1.73 code = 92011) CALC BUN/CREAT (test code = 5 RATIO [...] code = 2219) 10 U/L COMPREHENSIVE METABOLIC [id number] 00:00:00 Test Item Value Reference Range Interpretation Comments GLUCOSE (test code = 2217) 103 MG/DL BUN (test code = 2208) 35 MG/DL CREATININE (test code = 2214) 6.37 MG/DL eGFR AMER. (test code 11 ML/MIN/1.73 = 58659) eGFR NON- AMER. (test 9 ML/MIN/1.73 code = 19597) CALC BUN/CREAT (test code = 5 RATIO [...] (test code = 2219) 10 U/L LIPID [id number] 00:00:00 Test Item Value Reference Range Interpretation Comments CHOLESTEROL (test code = 2210) 240 MG/DL TRIGLYCERIDES (test code = 2232) 395 MG/DL HDL CHOLESTEROL (test code = 2220) 55 MG/DL CALC LDL CHOL (test code = 2237) 106 MG/DL RISK RATIO LDL/HDL (test code = 1.93 RATIO 2238) LIPID [id number] 00:00:00 Test Item Value Reference Range Interpretation Comments CHOLESTEROL (test code = 2210) 240 MG/DL TRIGLYCERIDES (test code = 2232) 395 MG/DL HDL CHOLESTEROL (test code = 2220) 55 MG/DL CALC LDL CHOL (test code = 2237) 106 MG/DL RISK RATIO LDL/HDL (test code = 1.93 RATIO 2238) CBC W/AUTO [id number] 00:00:00 Test Item Value Reference Range Interpretation [...] code = 1015) 327 K/UL CBC W/AUTO [id number] 00:00:00 Test Item Value Reference Range Interpretation [...] code = 1015) 327 K/UL CBC W/AUTO [id number] 00:00:00 Test Item Value Reference Range Interpretation [...] (test code = 1015) 327 K/UL HEMOGLOBIN [id number] 00:00:00 Test Item Value Reference Range Interpretation Comments HEMOGLOBIN A1c (test code = 32983) 6.2 % HEMOGLOBIN [id number] 00:00:00 Test Item Value Reference Range Interpretation Comments HEMOGLOBIN A1c (test code = 23897) 6.2 % HEMOGLOBIN [id number] 00:00:00 Test Item Value Reference Range Interpretation Comments HEMOGLOBIN A1c (test code = 04870) 6.2 % [id number] 00:00:00 Test Item Value Reference Range Interpretation Comments TSH, THIRD GENERATION (test >100.000 UIU/ML code = 2821) [id number] 00:00:00 Test Item Value Reference Range Interpretation Comments TSH, THIRD GENERATION (test >100.000 UIU/ML code = 2821) [id number] 00:00:00 Test Item Value Reference Range Interpretation Comments TSH, THIRD GENERATION (test >100.000 UIU/ML code = 2821) COMPREHENSIVE METABOLIC [id number] 00:00:00 Test Item Value Reference Range Interpretation Comments GLUCOSE (test code = 2217) 103 MG/DL BUN (test code = 2208) 35 MG/DL CREATININE (test code = 2214) 6.37 MG/DL eGFR AMER. (test code 11 ML/MIN/1.73 = 42170) eGFR NON- AMER. (test 9 ML/MIN/1.73 code = 40519) CALC BUN/CREAT (test code = 5 RATIO [...] code = 2219) 10 U/L COMPREHENSIVE METABOLIC [id number] 00:00:00 Test Item Value Reference Range Interpretation Comments GLUCOSE (test code = 2217) 103 MG/DL BUN (test code = 2208) 35 MG/DL CREATININE (test code = 2214) 6.37 MG/DL eGFR AMER. (test code 11 ML/MIN/1.73 = 41056) eGFR NON- AMER. (test 9 ML/MIN/1.73 code = 42797) CALC BUN/CREAT (test code = 5 RATIO [...] (test code = 2219) 10 U/L LIPID [id number] 00:00:00 Test Item Value Reference Range Interpretation Comments CHOLESTEROL (test code = 2210) 240 MG/DL TRIGLYCERIDES (test code = 2232) 395 MG/DL HDL CHOLESTEROL (test code = 2220) 55 MG/DL CALC LDL CHOL (test code = 2237) 106 MG/DL RISK RATIO LDL/HDL (test code = 1.93 RATIO 2238) LIPID [id number] 00:00:00 Test Item Value Reference Range Interpretation Comments CHOLESTEROL (test code = 2210) 240 MG/DL TRIGLYCERIDES (test code = 2232) 395 MG/DL HDL CHOLESTEROL (test code = 2220) 55 MG/DL CALC LDL CHOL (test code = 2237) 106 MG/DL RISK RATIO LDL/HDL (test code = 1.93 RATIO 2238) COMPREHENSIVE METABOLIC [id number] 00:00:00 Test Item Value Reference Range Interpretation Comments GLUCOSE (test code = 2217) 103 MG/DL BUN (test code = 2208) 35 MG/DL CREATININE (test code = 2214) 6.37 MG/DL eGFR AMER. (test code 11 ML/MIN/1.73 = 85149) eGFR NON- AMER. (test 9 ML/MIN/1.73 code = 17714) CALC BUN/CREAT (test code = 5 RATIO [...] code = 2219) 10 U/L CBC W/AUTO [id number] 00:00:00 Test Item Value Reference Range Interpretation [...] (test code = 1015) 327 K/UL LIPID [id number] 00:00:00 Test Item Value Reference Range Interpretation Comments CHOLESTEROL (test code = 2210) 240 MG/DL TRIGLYCERIDES (test code = 2232) 395 MG/DL HDL CHOLESTEROL (test code = 2220) 55 MG/DL CALC LDL CHOL (test code = 2237) 106 MG/DL RISK RATIO LDL/HDL (test code = 1.93 RATIO 2238) CBC W/AUTO [id number] 00:00:00 Test Item Value Reference Range Interpretation [...] code = 1015) 327 K/UL CBC W/AUTO [id number] 00:00:00 Test Item Value Reference Range Interpretation [...] (test code = 1015) 327 K/UL HEMOGLOBIN [id number] 00:00:00 Test Item Value Reference Range Interpretation Comments HEMOGLOBIN A1c (test code = 82263) 6.2 % HEMOGLOBIN [id number] 00:00:00 Test Item Value Reference Range Interpretation Comments HEMOGLOBIN A1c (test code = 95117) 6.2 % HEMOGLOBIN [id number] 00:00:00 Test Item Value Reference Range Interpretation Comments HEMOGLOBIN A1c (test code = 67366) 6.2 % [id number] 00:00:00 Test Item Value Reference Range Interpretation Comments TSH, THIRD GENERATION (test >100.000 UIU/ML code = 2821) [id number] 00:00:00 Test Item Value Reference Range Interpretation Comments TSH, THIRD GENERATION (test >100.000 UIU/ML code = 2821) [id number] 00:00:00 Test Item Value Reference Range Interpretation Comments TSH, THIRD GENERATION (test >100.000 UIU/ML code = 2821) CBC W/AUTO [id number] 00:00:00 Test Item Value Reference Range Interpretation [...] code = 1015) 327 K/UL CBC W/AUTO [id number] 00:00:00 Test Item Value Reference Range Interpretation [...] (test code = 1015) 327 K/UL HEMOGLOBIN [id number] 00:00:00 Test Item Value Reference Range Interpretation Comments HEMOGLOBIN A1c (test code = 34101) 6.2 % HEMOGLOBIN [id number] 00:00:00 Test Item Value Reference Range Interpretation Comments HEMOGLOBIN A1c (test code = 47021) 6.2 % COMPREHENSIVE METABOLIC [id number] 00:00:00 Test Item Value Reference Range Interpretation Comments GLUCOSE (test code = 2217) 103 MG/DL BUN (test code = 2208) 35 MG/DL CREATININE (test code = 2214) 6.37 MG/DL eGFR AMER. (test code 11 ML/MIN/1.73 = 23693) eGFR NON- AMER. (test 9 ML/MIN/1.73 code = 89643) CALC BUN/CREAT (test code = 5 RATIO [...] code = 2219) 10 U/L COMPREHENSIVE METABOLIC [id number] 00:00:00 Test Item Value Reference Range Interpretation Comments GLUCOSE (test code = 2217) 103 MG/DL BUN (test code = 2208) 35 MG/DL CREATININE (test code = 2214) 6.37 MG/DL eGFR AMER. (test code 11 ML/MIN/1.73 = 99852) eGFR NON- AMER. (test 9 ML/MIN/1.73 code = 07804) CALC BUN/CREAT (test code = 5 RATIO [...] ALT (test code = 2219) 10 U/L [id number] 00:00:00 Test Item Value Reference Range Interpretation Comments TSH, THIRD GENERATION (test >100.000 UIU/ML code = 2821) [id number] 00:00:00 Test Item Value Reference Range Interpretation Comments TSH, THIRD GENERATION (test >100.000 UIU/ML code = 2821) LIPID [id number] 00:00:00 Test Item Value Reference Range Interpretation Comments CHOLESTEROL (test code = 2210) 240 MG/DL TRIGLYCERIDES (test code = 2232) 395 MG/DL HDL CHOLESTEROL (test code = 2220) 55 MG/DL CALC LDL CHOL (test code = 2237) 106 MG/DL RISK RATIO LDL/HDL (test code = 1.93 RATIO 2238) LIPID [id number] 00:00:00 Test Item Value Reference Range Interpretation Comments CHOLESTEROL (test code = 2210) 240 MG/DL TRIGLYCERIDES (test code = 2232) 395 MG/DL HDL CHOLESTEROL (test code = 2220) 55 MG/DL CALC LDL CHOL (test code = 2237) 106 MG/DL RISK RATIO LDL/HDL (test code = 1.93 RATIO 2238) CBC W/AUTO [id number] 00:00:00 Test Item Value Reference Range Interpretation [...] code = 1015) 327 K/UL CBC W/AUTO [id number] 00:00:00 Test Item Value Reference Range Interpretation [...] code = 1015) 327 K/UL CBC W/AUTO [id number] 00:00:00 Test Item Value Reference Range Interpretation [...] (test code = 1015) 327 K/UL HEMOGLOBIN [id number] 00:00:00 Test Item Value Reference Range Interpretation Comments HEMOGLOBIN A1c (test code = 40612) 6.2 % HEMOGLOBIN [id number] 00:00:00 Test Item Value Reference Range Interpretation Comments HEMOGLOBIN A1c (test code = 40621) 6.2 % HEMOGLOBIN [id number] 00:00:00 Test Item Value Reference Range Interpretation Comments HEMOGLOBIN A1c (test code = 68702) 6.2 % [id number] 00:00:00 Test Item Value Reference Range Interpretation Comments TSH, THIRD GENERATION (test >100.000 UIU/ML code = 2821) [id number] 00:00:00 Test Item Value Reference Range Interpretation Comments TSH, THIRD GENERATION (test >100.000 UIU/ML code = 2821) [id number] 00:00:00 Test Item Value Reference Range Interpretation Comments TSH, THIRD GENERATION (test >100.000 UIU/ML code = 2821) COMPREHENSIVE METABOLIC [id number] 00:00:00 Test Item Value Reference Range Interpretation Comments GLUCOSE (test code = 2217) 103 MG/DL BUN (test code = 2208) 35 MG/DL CREATININE (test code = 2214) 6.37 MG/DL eGFR AMER. (test code 11 ML/MIN/1.73 = 80094) eGFR NON- AMER. (test 9 ML/MIN/1.73 code = 51147) CALC BUN/CREAT (test code = 5 RATIO [...] code = 2219) 10 U/L COMPREHENSIVE METABOLIC [id number] 00:00:00 Test Item Value Reference Range Interpretation Comments GLUCOSE (test code = 2217) 103 MG/DL BUN (test code = 2208) 35 MG/DL CREATININE (test code = 2214) 6.37 MG/DL eGFR AMER. (test code 11 ML/MIN/1.73 = 43319) eGFR NON- AMER. (test 9 ML/MIN/1.73 code = 48543) CALC BUN/CREAT (test code = 5 RATIO [...] (test code = 2219) 10 U/L LIPID [id number] 00:00:00 Test Item Value Reference Range Interpretation Comments CHOLESTEROL (test code = 2210) 240 MG/DL TRIGLYCERIDES (test code = 2232) 395 MG/DL HDL CHOLESTEROL (test code = 2220) 55 MG/DL CALC LDL CHOL (test code = 2237) 106 MG/DL RISK RATIO LDL/HDL (test code = 1.93 RATIO 2238) LIPID [id number] 00:00:00 Test Item Value Reference Range Interpretation Comments CHOLESTEROL (test code = 2210) 240 MG/DL TRIGLYCERIDES (test code = 2232) 395 MG/DL HDL CHOLESTEROL (test code = 2220) 55 MG/DL CALC LDL CHOL (test code = 2237) 106 MG/DL RISK RATIO LDL/HDL (test code = 1.93 RATIO 2238) CBC W/AUTO [id number] 00:00:00 Test Item Value Reference Range Interpretation [...] code = 1015) 327 K/UL CBC W/AUTO [id number] 00:00:00 Test Item Value Reference Range Interpretation [...] code = 1015) 327 K/UL CBC W/AUTO [id number] 00:00:00 Test Item Value Reference Range Interpretation [...] (test code = 1015) 327 K/UL HEMOGLOBIN [id number] 00:00:00 Test Item Value Reference Range Interpretation Comments HEMOGLOBIN A1c (test code = 62994) 6.2 % HEMOGLOBIN [id number] 00:00:00 Test Item Value Reference Range Interpretation Comments HEMOGLOBIN A1c (test code = 56281) 6.2 % HEMOGLOBIN [id number] 00:00:00 Test Item Value Reference Range Interpretation Comments HEMOGLOBIN A1c (test code = 26948) 6.2 % [id number] 00:00:00 Test Item Value Reference Range Interpretation Comments TSH, THIRD GENERATION (test >100.000 UIU/ML code = 2821) [id number] 00:00:00 Test Item Value Reference Range Interpretation Comments TSH, THIRD GENERATION (test >100.000 UIU/ML code = 2821) [id number] 00:00:00 Test Item Value Reference Range Interpretation Comments TSH, THIRD GENERATION (test >100.000 UIU/ML code = 2821) COMPREHENSIVE METABOLIC [id number] 00:00:00 Test Item Value Reference Range Interpretation Comments GLUCOSE (test code = 2217) 103 MG/DL BUN (test code = 2208) 35 MG/DL CREATININE (test code = 2214) 6.37 MG/DL eGFR AMER. (test code 11 ML/MIN/1.73 = 90825) eGFR NON- AMER. (test 9 ML/MIN/1.73 code = 57655) CALC BUN/CREAT (test code = 5 RATIO [...] code = 2219) 10 U/L COMPREHENSIVE METABOLIC [id number] 00:00:00 Test Item Value Reference Range Interpretation Comments GLUCOSE (test code = 2217) 103 MG/DL BUN (test code = 2208) 35 MG/DL CREATININE (test code = 2214) 6.37 MG/DL eGFR AMER. (test code 11 ML/MIN/1.73 = 94565) eGFR NON- AMER. (test 9 ML/MIN/1.73 code = 04408) CALC BUN/CREAT (test code = 5 RATIO [...] (test code = 2219) 10 U/L LIPID [id number] 00:00:00 Test Item Value Reference Range Interpretation Comments CHOLESTEROL (test code = 2210) 240 MG/DL TRIGLYCERIDES (test code = 2232) 395 MG/DL HDL CHOLESTEROL (test code = 2220) 55 MG/DL CALC LDL CHOL (test code = 2237) 106 MG/DL RISK RATIO LDL/HDL (test code = 1.93 RATIO 2238) LIPID [id number] 00:00:00 Test Item Value Reference Range Interpretation Comments CHOLESTEROL (test code = 2210) 240 MG/DL TRIGLYCERIDES (test code = 2232) 395 MG/DL HDL CHOLESTEROL (test code = 2220) 55 MG/DL CALC LDL CHOL (test code = 2237) 106 MG/DL RISK RATIO LDL/HDL (test code = 1.93 RATIO 2238) CBC W/AUTO [id number] 00:00:00 Test Item Value Reference Range Interpretation [...] code = 1015) 327 K/UL CBC W/AUTO [id number] 00:00:00 Test Item Value Reference Range Interpretation [...] code = 1015) 327 K/UL CBC W/AUTO [id number] 00:00:00 Test Item Value Reference Range Interpretation [...] (test code = 1015) 327 K/UL HEMOGLOBIN [id number] 00:00:00 Test Item Value Reference Range Interpretation Comments HEMOGLOBIN A1c (test code = 94837) 6.2 % HEMOGLOBIN [id number] 00:00:00 Test Item Value Reference Range Interpretation Comments HEMOGLOBIN A1c (test code = 34563) 6.2 % HEMOGLOBIN [id number] 00:00:00 Test Item Value Reference Range Interpretation Comments HEMOGLOBIN A1c (test code = 59411) 6.2 % [id number] 00:00:00 Test Item Value Reference Range Interpretation Comments TSH, THIRD GENERATION (test >100.000 UIU/ML code = 2821) [id number] 00:00:00 Test Item Value Reference Range Interpretation Comments TSH, THIRD GENERATION (test >100.000 UIU/ML code = 2821) [id number] 00:00:00 Test Item Value Reference Range Interpretation Comments TSH, THIRD GENERATION (test >100.000 UIU/ML code = 2821) COMPREHENSIVE METABOLIC [id number] 00:00:00 Test Item Value Reference Range Interpretation Comments GLUCOSE (test code = 2217) 103 MG/DL BUN (test code = 2208) 35 MG/DL CREATININE (test code = 2214) 6.37 MG/DL eGFR AMER. (test code 11 ML/MIN/1.73 = 52812) eGFR NON- AMER. (test 9 ML/MIN/1.73 code = 33672) CALC BUN/CREAT (test code = 5 RATIO [...] code = 2219) 10 U/L COMPREHENSIVE METABOLIC [id number] 00:00:00 Test Item Value Reference Range Interpretation Comments GLUCOSE (test code = 2217) 103 MG/DL BUN (test code = 2208) 35 MG/DL CREATININE (test code = 2214) 6.37 MG/DL eGFR AMER. (test code 11 ML/MIN/1.73 = 38319) eGFR NON- AMER. (test 9 ML/MIN/1.73 code = 50010) CALC BUN/CREAT (test code = 5 RATIO [...] (test code = 2219) 10 U/L LIPID [id number] 00:00:00 Test Item Value Reference Range Interpretation Comments CHOLESTEROL (test code = 2210) 240 MG/DL TRIGLYCERIDES (test code = 2232) 395 MG/DL HDL CHOLESTEROL (test code = 2220) 55 MG/DL CALC LDL CHOL (test code = 2237) 106 MG/DL RISK RATIO LDL/HDL (test code = 1.93 RATIO 2238) LIPID [id number] 00:00:00 Test Item Value Reference Range Interpretation Comments CHOLESTEROL (test code = 2210) 240 MG/DL TRIGLYCERIDES (test code = 2232) 395 MG/DL HDL CHOLESTEROL (test code = 2220) 55 MG/DL CALC LDL CHOL (test code = 2237) 106 MG/DL RISK RATIO LDL/HDL (test code = 1.93 RATIO 2238) CBC W/AUTO [id number] 00:00:00 Test Item Value Reference Range Interpretation [...] code = 1015) 327 K/UL CBC W/AUTO [id number] 00:00:00 Test Item Value Reference Range Interpretation [...] code = 1015) 327 K/UL CBC W/AUTO [id number] 00:00:00 Test Item Value Reference Range Interpretation [...] (test code = 1015) 327 K/UL HEMOGLOBIN [id number] 00:00:00 Test Item Value Reference Range Interpretation Comments HEMOGLOBIN A1c (test code = 61132) 6.2 % HEMOGLOBIN [id number] 00:00:00 Test Item Value Reference Range Interpretation Comments HEMOGLOBIN A1c (test code = 94045) 6.2 % HEMOGLOBIN [id number] 00:00:00 Test Item Value Reference Range Interpretation Comments HEMOGLOBIN A1c (test code = 43801) 6.2 % [id number] 00:00:00 Test Item Value Reference Range Interpretation Comments TSH, THIRD GENERATION (test >100.000 UIU/ML code = 2821) [id number] 00:00:00 Test Item Value Reference Range Interpretation Comments TSH, THIRD GENERATION (test >100.000 UIU/ML code = 2821) [id number] 00:00:00 Test Item Value Reference Range Interpretation Comments TSH, THIRD GENERATION (test >100.000 UIU/ML code = 2821)
[2023-02-02 15:51] LABS: Absolute Lymphocytes (CBC) 1.5 K/uL (0.7-4.9); Lymphocytes % 13.6 % (15.3-44.8); MCV 96.9 fL (80-100); MPV 7.7 fL (7.6-11.3); Platelets 313 thou/uL (152-406); RBC Red Blood Cell Count 4.33 M/uL (4.33-5.43)
--- NOTE | 2023-02-02 15:56 | RAD REPORT ---
EXAM DESCRIPTION: CT - Head Brain Wo Cont - 02/02/2023 3:49 pm CLINICAL HISTORY: WEAKNESS Headache, drowsiness, CVA symptomology. COMPARISON: Head Brain Wo Cont dated 12/07/2022; Ct Stroke Brain Wo Cont dated 10/15/2022 TECHNIQUE: All CT scans are performed using dose optimization technique as appropriate and may inclu de automated exposure control or mA/KV adjustment according to patient size. FINDINGS: No intracranial hemorrhage, hydrocephalus or extra-axial fluid collection.Moderate general ized brain atrophy is present with mild periventricular and deep white matter chronic microvascular i schemic changes.No areas of brain edema or evidence of midline shift. Left temporal fossa CSF collect ion is unchanged. Heavy vertebral atherosclerosis. The paranasal sinuses and mastoids are clear. The calvarium is intact. IMPRESSION: No acute intracranial abnormality.
[2023-02-02 16:13] LABS: Albumin 4.6 g/dL (3.4-5.0); Bilirubin Direct 0.1 mg/dL (0-0.2); Bilirubin Indirect, Calculated 0.2 mg/dL (0.2-0.8); Bilirubin Total 0.3 mg/dL (0.2-1.0); Magnesium 2.3 mg/dL (1.6-2.4); Potassium 4.4 mEq/L (3.5-5.1); Protein, Total 9.2 g/dL (6.4-8.2)
--- NOTE | 2023-02-02 16:27 | RAD REPORT ---
EXAM DESCRIPTION: RAD - Chest Single View - 02/02/2023 4:18 pm CLINICAL HISTORY: MALAISE Chest pain. COMPARISON: Chest Single View dated 10/29/2022; Chest Single View dated 10/23/2022; Chest Single View dated 10/20/2022; Chest Single View dated 10/19/2022 FINDINGS: Portable technique limits examination quality. The lungs are grossly clear. The heart is normal in size. No displaced fractures. IMPRESSION: No acute intrathoracic process suspected.
[2023-02-02 16:32] LABS: Protime INR 0.94
[2023-02-02 17:10] LABS: SARS-CoV-2 Antigen Rapid Res Negative (Negative)
--- NOTE | 2023-02-02 17:28 | ER ---
Nurse's Notes [facility] Name: Alejandro Dunbar Age: 57 yrs Sex: Male : 1965 Arrival Date: 02/02/2023 Time: 15:13 Bed 13 Private MD: Diagnosis: Other malaise and fatigue;Nausea;Hypothyroidism, unspecified Presentation: 02/02 15:26 Chief complaint: Patient states: generalized weakness x 4 days ago, pt reports he had aa5 dialysis today for 3 hours. 15:26 Acuity: KERRI 3 aa5 15:26 Method Of Arrival: Ambulatory aa5 15:26 Coronavirus screen: nausea. Ebola Screen: Patient denies travel to an Ebola-affected [facility] area in the 21 days before illness onset. Initial Sepsis Screen: Does the patient meet any 2 criteria? No. Patient's initial sepsis screen is negative. Does the patient have a suspected source of infection? No. Patient's initial sepsis screen is negative. Risk Assessment: Do you want to hurt yourself or someone else? Patient reports no desire to harm self or others. Onset of symptoms was January 30, 2023. Historical: - Allergies: 15:27 No Known Allergies; aa5 - PMHx: 15:27 Diabetes - NIDDM; Dialysis; High Cholesterol; Hypertension; Hypothyroidism; aa5 - PSHx: 15:27 left arm fistula; aa5 15:27 tracheostomy and reversal; aa5 - Immunization history:: Adult Immunizations up to date. - Social history:: Smoking status: unknown. Screenin:35 [facility] ED Fall Risk Assessment (Adult) Score/Fall Risk Level 0 - 2 = Low Risk. Abuse eh3 screen: Denies threats or abuse. Denies injuries from another. Nutritional screening: No deficits noted. Tuberculosis screening: No symptoms or risk factors identified. Assessment: 15:35 General: Appears in no apparent distress. uncomfortable, Behavior is calm, cooperative, eh3 appropriate for age. Pain: Denies pain. Neuro: Level of Consciousness is awake, alert, obeys commands, Oriented to person, place, time, situation, Reports weakness. Cardiovascular: Capillary refill < 3 seconds Patient's skin is warm and dry. Respiratory: Airway is patent Respiratory effort is even, unlabored, Respiratory pattern is regular, symmetrical. GI: Abdomen is round Reports nausea. Derm: Skin is pink, warm \T\ dry. Musculoskeletal: Circulation, motion, and sensation intact. 16:30 Reassessment: Patient appears in no apparent distress at this time. Patient and/or eh3 family updated on plan of care and expected duration. Pain level reassessed. Patient is alert, oriented x 3, equal unlabored respirations, skin warm/dry/pink. 17:30 Reassessment: Patient appears in no apparent distress at this time. Patient and/or eh3 family updated on plan of care and expected duration. Pain level reassessed. Patient is alert, oriented x 3, equal unlabored respirations, skin warm/dry/pink. Vital Signs: 15:26 BP 155 / 94; Pulse 89; Resp 18 S; Temp 98.3(TE); Pulse Ox 95% on R/A; Weight 78.93 kg aa5 (R); Height 5 ft. 4 in. (R); 16:30 BP 159 / 99; Pulse 82; Resp 18; Pulse Ox 96% on R/A; eh3 15:26 Body Mass Index 29.87 (78.93 kg, 162.56 cm) aa5 ED Course: 15:18 Patient arrived in ED. im 15:20 Nadeen Ojeda FNP-C is PHCP. snw 15:20 Gerardo Mcoky MD is Attending Physician. snw 15:27 Triage completed. aa5 15:27 Arm band placed on. aa5 15:32 Janay Marshall, SANJAY is Primary Nurse. eh3 15:35 Patient has correct armband on for positive identification. Bed in low position. Call eh3 light in reach. Side rails up X2. Provided Education on: Use of call li. Client placed on continuous cardiac and pulse oximetry monitoring. NIBP monitoring applied. 15:40 Inserted saline lock: 22 gauge in right antecubital area, using aseptic technique. eh3 Blood collected. 15:47 EKG done, by ED staff. tm3 15:50 CT Head Brain wo Cont In Process Unspecified. EDMS 16:20 XRAY Chest (1 view) In Process Unspecified. EDMS 18:23 No provider procedures requiring assistance completed. IV discontinued, intact, eh3 bleeding controlled, No redness/swelling at site. Pressure dressing applied. Administered Medications: No medications were administered Medication: 18:23 VIS not applicable for this client. eh3 Outcome: 17:27 Discharge ordered by MD. donald 18:23 Discharged to home ambulatory, [facility] 18:23 Condition: stable 18:23 Discharge instructions given to patient, Instructed on discharge instructions, follow up and referral plans. Demonstrated understanding of instructions, follow-up care, 18:24 Patient left the ED. 3 Signatures: Dispatcher [employer] EDMS Govind Tineo 3 Nadeen Ojeda, TIE PRESSER-C TIE PRESSER-Csnw Aisha Boyer RN RN 5 Janay Marshall RN RN 3 Jennifer Lemus Corrections: (The following items were deleted from the chart) 15:29 15:27 PSHx: tracheostomy; aa5 aa5 15:29 15:27 PMHx: dialysis; aa5 aa5
--- NOTE | 2023-02-02 17:28 | EDPHYS ---
Physician Documentation [facility] Name: Alejandro Dunbar Age: 57 yrs Sex: Male : 1965 Arrival Date: 02/02/2023 Time: 15:13 Bed 13 Private MD: ED Physician Gerardo Mckoy HPI: 02/02 15:34 This 57 yrs old Male presents to ER via Ambulatory with complaints of General snw Weakness, Shakes, Nausea. 15:34 pt states for the past 4 days he has experienced weakness, nausea, c/o arms and legs snw jerking when lying down. Pt finished 3 hours of dialysis today.. Severity of symptoms: At their worst the symptoms were moderate. It is unknown whether or not the patient has had similar symptoms in the past. It is unknown whether or not the patient has recently seen a physician. Historical: - Allergies: 15:27 No Known Allergies; aa5 - PMHx: 15:27 Diabetes - NIDDM; Dialysis; High Cholesterol; Hypertension; Hypothyroidism; aa5 - PSHx: 15:27 left arm fistula; aa5 15:27 tracheostomy and reversal; aa5 - Immunization history:: Adult Immunizations up to date. - Social history:: Smoking status: unknown. ROS: 15:32 Eyes: Negative for injury, pain, redness, and discharge, ENT: Negative for injury, snw pain, and discharge, Neck: Negative for injury, pain, and swelling, Cardiovascular: Negative for chest pain, palpitations, and edema, Respiratory: Negative for shortness of breath, cough, wheezing, and pleuritic chest pain, 15:32 Back: Negative for injury and pain, : Negative for injury, bleeding, discharge, and swelling, MS/Extremity: Negative for injury and deformity, Skin: Negative for injury, rash, and discoloration, 15:32 Constitutional: Positive for malaise, weakness, 15:32 Abdomen/GI: Positive for nausea, 15:32 Neuro: Positive for weakness, of the pt states 4 days ago when lying down his arms and legs were jerking rapidly, +/-seizure?, Exam: 15:31 Head/Face: Normocephalic, atraumatic. Eyes: Pupils equal round and reactive to light, snw extra-ocular motions intact. Lids and lashes normal. Conjunctiva and sclera are non-icteric and not injected. Cornea within normal limits. Periorbital areas with no swelling, redness, or edema. ENT: Nares patent. No nasal discharge, no septal abnormalities noted. Tympanic membranes are normal and external auditory canals are clear. Oropharynx with no redness, swelling, or masses, exudates, or evidence of obstruction, uvula midline. Mucous membranes moist. Neck: Trachea midline, no thyromegaly or masses palpated, and no cervical lymphadenopathy. Supple, full range of motion without nuchal rigidity, or vertebral point tenderness. No Meningismus. Chest/axilla: Normal chest wall appearance and motion. Nontender with no deformity. No lesions are appreciated. Cardiovascular: Regular rate and rhythm with a normal S1 and S2. No gallops, murmurs, or rubs. Normal PMI, no JVD. No pulse deficits. Respiratory: Lungs have equal breath sounds bilaterally, clear to auscultation and percussion. No rales, rhonchi or wheezes noted. No increased work of breathing, no retractions or nasal flaring. Abdomen/GI: Soft, non-tender, with normal bowel sounds. No distension or tympany. No guarding or rebound. No evidence of tenderness throughout. Back: No spinal tenderness. No costovertebral tenderness. Full range of motion. Skin: Warm, dry with normal turgor. Normal color with no rashes, no lesions, and no evidence of cellulitis. MS/ Extremity: Pulses equal, no cyanosis. Neurovascular intact. Full, normal range of motion. Neuro: Awake and alert, GCS 15, oriented to person, place, time, and situation. Cranial nerves II-XII grossly intact. Motor strength 5/5 in all extremities. Sensory grossly intact. Cerebellar exam normal. Normal gait. Psych: Awake, alert, with orientation to person, place and time. Behavior, mood, and affect are within normal limits. 15:31 Constitutional: The patient appears alert, awake, Vital Signs: 15:26 BP 155 / 94; Pulse 89; Resp 18 S; Temp 98.3(TE); Pulse Ox 95% on R/A; Weight 78.93 kg aa5 (R); Height 5 ft. 4 in. (R); 16:30 BP 159 / 99; Pulse 82; Resp 18; Pulse Ox 96% on R/A; eh3 15:26 Body Mass Index 29.87 (78.93 kg, 162.56 cm) aa5 MDM: 15:30 Patient medically screened. snw 17:26 Differential Diagnosis sepsis, flu. Data reviewed: vital signs, nurses notes. snw Counseling: I had a detailed discussion with the patient and/or guardian regarding the historical points, exam findings, and any diagnostic results supporting the discharge/admit diagnosis, the presence of at least one elevated blood pressure reading (>120/80) during this emergency department visit, lab results, radiology results, the need for outpatient follow up, for definitive care, an grape crusher, to return to the emergency department if symptoms worsen or persist or if there are any questions or concerns that arise at home. Response to treatment: the patient's symptoms have mildly improved after treatment. Special discussion: Based on the history and exam findings, there is no indication for further emergent testing or inpatient evaluation. I discussed with the patient/guardian the need to see the primary care provider for further evaluation of the symptoms. 02/02 15:23 Order name: Basic Metabolic Panel; Complete Time: 16:31 snw 02/02 15:23 Order name: CBC with Diff; Complete Time: 16:31 snw 02/02 15:23 Order name: LFT's; Complete Time: 16:31 snw 02/02 15:23 Order name: Magnesium; Complete Time: 16:31 snw 02/02 15:23 Order name: NT PRO-BNP; Complete Time: 16:31 snw 02/02 15:23 Order name: PT-INR; Complete Time: 16:36 snw 02/02 15:23 Order name: Troponin HS; Complete Time: 16:31 snw 02/02 15:31 Order name: TSH; Complete Time: 17:37 snw 02/02 15:36 Order name: Flu; Complete Time: 17:26 snw 02/02 15:36 Order name: SARS RAPID; Complete Time: 17:13 snw 02/02 17:34 Order name: T4 Free; Complete Time: 17:37 EDMS 02/02 15:23 Order name: XRAY Chest (1 view); Complete Time: 16:31 snw 02/02 15:31 Order name: CT Head Brain wo Cont; Complete Time: 16:31 snw 02/02 15:23 Order name: EKG; Complete Time: 15:23 snw 02/02 15:23 Order name: Cardiac monitoring; Complete Time: 15:45 snw 02/02 15:23 Order name: EKG - Nurse/Tech; Complete Time: 15:47 snw 02/02 15:23 Order name: IV Saline Lock; Complete Time: 15:45 snw 02/02 15:23 Order name: Labs collected and sent; Complete Time: 15:45 snw 02/02 15:23 Order name: O2 Per Protocol; Complete Time: 15:45 snw 02/02 15:23 Order name: O2 Sat Monitoring; Complete Time: 15:45 snw EC:48 Rate is 81 beats/min. Rhythm is regular. T waves are Inverted in leads I, aVL, aVR. snw Clinical impression: NSR w/ Non-specific ST/T Changes. Administered Medications: No medications were administered Disposition: 21:06 Co-signature as Attending Physician, Gerardo Mckoy MD I reviewed the patient's care rt provided by the Advanced Practice Provider and agree with the diagnosis and treatment plan. Disposition Summary: 02/02/23 17:27 Discharge Ordered Notes: Location: Home snw Condition: Stable snw Diagnosis - Other malaise and fatigue snw - Nausea snw - Hypothyroidism, unspecified snw Followup: snw - With: Emergency Department - When: As needed - Reason: Worsening of condition Followup: snw - With: Private Physician - When: 2 - 3 days - Reason: Recheck today's complaints, Continuance of care, Re-evaluation by your physician Discharge Instructions: - Discharge Summary Sheet snw - Hypothyroidism snw - Nausea, Adult snw - Fatigue snw Forms: - Medication Reconciliation Form snw - Thank You Letter snw - Antibiotic Education snw - Prescription Opioid Use snw - Patient Portal Instructions snw - Leadership Thank You Letter snw Signatures: Dispatcher [employer] Nadeen Keys, MOLLY-C HAND LAUNDERER-Csnw Aisha Boyer, RN RN aa5 Janay Marshall, SANJAY RN eh3 Gerardo Mckoy MD MD rt Corrections: (The following items were deleted from the chart) 15:29 15:27 PSHx: tracheostomy; aa5 aa5 15:29 15:27 PMHx: dialysis; aa5 aa5
[2023-02-02 18:33] VITALS: TEMP 98.3
[2023-02-02 18:39] VITALS: BP 159/99; O2SAT 96
--- NOTE | 2023-02-03 16:39 | EKG ---
Test Date: 2023-02-02 Test Time: 15:45:29 Parachute Accessories Attacher: TM MEASUREMENT RESULTS: Intervals: Rate: 81 VT: 178 QRSD: 94 QT: 388 QTc: 450 Tracy: P: 37 VT: 178 QRS: 52 T: 138 INTERPRETIVE STATEMENTS: Normal sinus rhythm ST & T wave abnormality, consider lateral ischemia Abnormal ECG Compared to ECG 10/15/2022 17:54:06 No significant changes Electronically Signed On 02-03-23 16:37:42 CDT by Joe Al
== END 2023-02-02 18:24 | disposition home or self-care (01) ==
LOC: ER 15:13
DX: R53.81 Other malaise (principal); R53.83 Other fatigue; E03.9 Hypothyroidism, unspecified; R11.0 Nausea; Z99.2 Dependence on renal dialysis; E11.9 Type 2 diabetes mellitus without complications; I10 Essential (primary) hypertension; Z20.822 Contact with and (suspected) exposure to COVID-19
CPT/HCPCS: 36415; 70450; 71045; 80048; 80076; 83735; 83880; 84439; 84443; 84484; 85025; 85610; 87804; 87811; 93005; 99284

== ENCOUNTER → 2023-06-04 | Emergency (ER) | payer OTHER ==
[~2023-06-04] MED LIST: ONDANSETRON 4 MG/2 ML VIAL ONE
[2023-06-04 18:28] LABS: Absolute Lymphocytes (CBC) 0.9 K/uL (0.7-4.9); Lymphocytes % 8.8 % (15.3-44.8); MCV 95.9 fL (80-100); MPV 7.5 fL (7.6-11.3); Platelets 456 thou/uL (152-406); RBC Red Blood Cell Count 3.44 M/uL (4.33-5.43)
[2023-06-04 18:44] LABS: Albumin 4.1 g/dL (3.4-5.0); Bilirubin Direct 0.1 mg/dL (0-0.2); Bilirubin Indirect, Calculated 0.4 mg/dL (0.2-0.8); Bilirubin Total 0.5 mg/dL (0.2-1.0); Magnesium 2.1 mg/dL (1.6-2.4); Potassium 3.4 mEq/L (3.5-5.1); Protein, Total 8.8 g/dL (6.4-8.2); Troponin High Sensitivity 22.9 pg/mL (<58.9)
--- NOTE | 2023-06-04 18:59 | RAD REPORT ---
EXAM DESCRIPTION: CT - Head Brain Wo Cont - 06/04/2023 6:37 pm CLINICAL HISTORY: Dizziness COMPARISON: 2022 TECHNIQUE: Computed axial tomography of the head was obtained. IV contrast was not requested. All CT scans are performed using dose optimization technique as appropriate and may include automated exposure control or mA/KV adjustment according to patient size. FINDINGS: An intracranial bleed is not seen The ventricles are normal in caliber 7 centimeter left temporal fossa arachnoid cyst unchanged Mild low-density areas within periventricular, deep and subcortical white matter likely represent isc hemic changes secondary to small vessel disease. Fluid within the sinuses/ mastoids is not seen. IMPRESSION: No acute intracranial abnormality is seen If patient's symptoms persist MRI of the brain would be recommended
--- NOTE | 2023-06-04 19:30 | RAD REPORT ---
EXAM DESCRIPTION: Phil Single View06/04/2023 7:03 pm CLINICAL HISTORY: Chest pain COMPARISON: none FINDINGS: The lungs appear clear of acute infiltrate. The heart is normal size. Central venous catheter in place
--- NOTE | 2023-06-04 19:43 | ER ---
Nurse's Notes [facility] Name: Alejandro Dunbar Age: 57 yrs Sex: Male : 1965 Arrival Date: 06/04/2023 Time: 17:36 Bed 19 Private MD: Diagnosis: Benign paroxysmal vertigo Presentation: 06/04 17:43 Chief complaint: Patient states: "I was just laying down in my bed and started feeling aa5 dizzy and nauseated, I tried getting up and I still felt dizzy". Reports had dialysis this morning. Coronavirus screen: nausea. Ebola Screen: Patient denies travel to an Ebola-affected area in the 21 days before illness onset. Initial Sepsis Screen: Does the patient meet any 2 criteria? No. Patient's initial sepsis screen is negative. Does the patient have a suspected source of infection? No. Patient's initial sepsis screen is negative. Risk Assessment: Do you want to hurt yourself or someone else? Patient reports no desire to harm self or others. Onset of symptoms was June 04, 2023. 17:43 Method Of Arrival: Ambulatory aa5 17:43 Acuity: KERRI 3 aa5 Historical: - Allergies: 17:44 No Known Allergies; aa5 - PMHx: 17:44 Diabetes - NIDDM; Dialysis; High Cholesterol; Hypertension; Hypothyroidism; Dialysis aa5 catheter to right upper chest; - PSHx: 17:44 Left arm fistula; Tracheostomy and reversal; aa5 - Immunization history:: Adult Immunizations unknown. - Social history:: Smoking status: Patient denies any tobacco usage or history of. Screenin:17 [facility] ED Fall Risk Assessment (Adult) History of falling in the last 3 months, cp4 including since admission No falls in past 3 months (0 pts) Confusion or Disorientation No (0 pts) Intoxicated or Sedated No (0 pts) Impaired Gait No (0 pts) Mobility Assist Device Used No (0 pt) Altered Elimination No (0 pt) Score/Fall Risk Level 0 - 2 = Low Risk Oriented to surroundings, Maintained a safe environment, Educated pt \\T\\ family on fall prevention, incl call for assistance when getting out of bed, Assessed \\T\\ reinforced patient's understanding of fall precautions, Provided non-skid footwear, Hourly rounding (assess needs \\T\\ fall precautionary measures) done. Abuse screen: Denies threats or abuse. Nutritional screening: No deficits noted. Tuberculosis screening: No symptoms or risk factors identified. Assessment: 18:15 General: Appears in no apparent distress. Behavior is calm, cooperative, appropriate cp4 for age. Pain: Denies pain. GI: Abdomen is round distended. 19:36 Reassessment: Patient appears in no apparent distress at this time. No changes from tm6 previously documented assessment. Patient and/or family updated on plan of care and expected duration. Pain level reassessed. Patient is alert, oriented x 3, equal unlabored respirations, skin warm/dry/pink. Vital Signs: 17:43 BP 148 / 69; Pulse 73; Resp 16 S; Temp 97.3(TE); Pulse Ox 99% on R/A; Weight 79.83 kg; aa5 Height 5 ft. 4 in. (R); 18:22 BP 114 / 62 Supine; Pulse 68; cp4 18:22 BP 133 / 64 Sitting; Pulse 71; cp4 18:23 BP 104 / 63 Standing; Pulse 77; cp4 19:35 BP 124 / 64; Pulse 63; Resp 17; Pulse Ox 95% ; Pain 0/10; tm6 17:43 Body Mass Index 30.21 (79.83 kg, 162.56 cm) aa5 19:35 Pain Scale: Adult tm6 ED Course: 17:39 Patient arrived in ED. im 17:42 Daniella Hanson PA-C is PHCP. sb4 17:42 Angel Sung DO is Attending Physician. sb4 17:43 Arm band placed on. aa5 17:44 Triage completed. aa5 18:04 Dayana Collier is Primary Nurse. cp4 18:17 Bed in low position. Call light in reach. Side rails up X 1. Provided Education on: cp4 dizziness. 18:17 No provider procedures requiring assistance completed. cp4 18:17 Inserted saline lock: 20 gauge in right forearm, using aseptic technique. Blood cp4 collected. 18:39 CT Head Brain wo Cont In Process Unspecified. EDMS 19:05 Chest Single View XRAY In Process Unspecified. EDMS 19:35 Margie Kulkarni, RN is Primary Nurse. tm6 20:00 IV discontinued, intact, bleeding controlled, No redness/swelling at site. Pressure tm6 dressing applied. Administered Medications: 18:14 Drug: Ondansetron IVP 4 mg IVP once; over 2 minutes Route: IVP; Site: right antecubital;cp4 Medication: 18:17 VIS not applicable for this client. cp4 Outcome: 19:43 Discharge ordered by . sb4 20:00 Discharged to home ambulatory, tm6 20:00 Condition: stable 20:00 Discharge instructions given to patient, Instructed on discharge instructions, follow up and referral plans. Demonstrated understanding of instructions, follow-up care, 20:00 Patient left the ED. tm6 Signatures: Dispatcher [employer] EDMS Aisha Boyer, RN RN yoni5 Daniella Hanson, PA-C PA-C sb4 Jennifer Lemus Christina cp4 Margie Kulkarni, RN RN tm6
--- NOTE | 2023-06-04 19:44 | EDPHYS ---
Physician Documentation [facility] Name: Alejandro Dunbar Age: 57 yrs Sex: Male : 1965 Arrival Date: 06/04/2023 Time: 17:36 Bed 19 Private MD: ED Physician nAgel Sung HPI: 06/04 17:59 This 57 yrs old Male presents to ER via Ambulatory with complaints of sb4 Dizziness, Nausea. Historical: - Allergies: 17:44 No Known Allergies; aa5 - PMHx: 17:44 Diabetes - NIDDM; Dialysis; High Cholesterol; Hypertension; Hypothyroidism; Dialysis aa5 catheter to right upper chest; - PSHx: 17:44 Left arm fistula; Tracheostomy and reversal; aa5 - Immunization history:: Adult Immunizations unknown. - Social history:: Smoking status: Patient denies any tobacco usage or history of. ROS: 18:02 Constitutional: Negative for fever, chills, and weight loss, sb4 18:02 Abdomen/GI: Positive for nausea and vomiting, 18:02 Neuro: Positive for dizziness, 18:02 All other systems are negative, 18:02 Cardiovascular: Positive for chest pain, sb4 Exam: 18:02 Constitutional: This is a well developed, well nourished patient who is awake, alert, sb4 and in no acute distress. Head/Face: Normocephalic, atraumatic. Eyes: Extra-ocular motions intact. Periorbital areas with no swelling, redness, or edema. ENT: Mucous membranes moist. Cardiovascular: Regular rate and rhythm with a normal S1 and S2. Respiratory: Lungs have equal breath sounds bilaterally, clear to auscultation and percussion. No rales, rhonchi or wheezes noted. No increased work of breathing, no retractions or nasal flaring. Abdomen/GI: Soft, non-tender, no distension. Skin: Warm, dry with normal turgor. Normal color with no rashes, no lesions, and no evidence of cellulitis. MS/ Extremity: Pulses equal, no cyanosis. Neurovascular intact. Full, normal range of motion. Neuro: Awake and alert, GCS 15, oriented to person, place, time, and situation. Motor strength 5/5 in all extremities. Sensory grossly intact. Vital Signs: 17:43 BP 148 / 69; Pulse 73; Resp 16 S; Temp 97.3(TE); Pulse Ox 99% on R/A; Weight 79.83 kg; aa5 Height 5 ft. 4 in. (R); 18:22 BP 114 / 62 Supine; Pulse 68; cp4 18:22 BP 133 / 64 Sitting; Pulse 71; cp4 18:23 BP 104 / 63 Standing; Pulse 77; cp4 19:35 BP 124 / 64; Pulse 63; Resp 17; Pulse Ox 95% ; Pain 0/10; tm6 17:43 Body Mass Index 30.21 (79.83 kg, 162.56 cm) aa5 19:35 Pain Scale: Adult tm6 MDM: 17:43 Patient medically screened. sb4 18:02 Differential diagnosis: cardiac arrhythmia, CVA, hypovolemia, idiopathic dizziness, sb4 TIA, vertigo. 19:42 Data reviewed: vital signs, nurses notes, lab test result(s), EKG, radiologic studies, sb4 and as a result, I will discharge patient. Consideration of Admission/Observation Escalation of care including admission/observation considered. Care significantly affected by the following chronic conditions: Diabetes, Hypertension, Chronic Kidney Disease. Counseling: I had a detailed discussion with the patient and/or guardian regarding the historical points, exam findings, and any diagnostic results supporting the discharge/admit diagnosis, lab results, radiology results, the need for outpatient follow up, for definitive care, to return to the emergency department if symptoms worsen or persist or if there are any questions or concerns that arise at home. 06/04 17:56 Order name: Basic Metabolic Panel; Complete Time: 18:45 sb4 06/04 17:56 Order name: CBC with Diff; Complete Time: 18:33 sb4 06/04 17:56 Order name: Hepatic Function; Complete Time: 18:45 sb4 06/04 17:56 Order name: Magnesium; Complete Time: 18:45 sb4 06/04 17:56 Order name: Protime (+inr); Complete Time: 18:33 sb4 02 17:56 Order name: Ptt, Activated; Complete Time: 18:33 sb4 06/04 17:56 Order name: Troponin High Sensitivity; Complete Time: 18:45 sb4 06/04 17:56 Order name: CT Head Brain wo Cont; Complete Time: 19:00 sb4 06/04 17:56 Order name: Chest Single View XRAY; Complete Time: 19:35 sb4 06/04 17:56 Order name: EKG; Complete Time: 17:57 sb4 06/04 17:56 Order name: Cardiac monitoring; Complete Time: 18:04 sb4 06/04 17:56 Order name: EKG - Nurse/Tech; Complete Time: 18:04 sb4 06/04 17:56 Order name: IV Saline Lock; Complete Time: 18:04 sb4 06/04 17:56 Order name: Labs collected and sent; Complete Time: 18:04 sb4 06/04 17:56 Order name: NPO; Complete Time: 18:04 sb4 06/04 17:56 Order name: O2 Per Protocol; Complete Time: 18:04 sb4 06/04 17:56 Order name: O2 Sat Monitoring; Complete Time: 18:04 sb4 06/04 17:56 Order name: Orthostatics; Complete Time: 18:14 sb4 EC:39 Rate is 72 beats/min. Rhythm is regular, Normal Sinus Rhythm. FL interval is normal at sb4 168 msec. QRS interval is normal at 96 msec. QT interval is normal at 398 msec. Clinical impression: Abnormal EKG without significant change. Interpreted by me. Reviewed by me. Administered Medications: 18:14 Drug: Ondansetron IVP 4 mg IVP once; over 2 minutes Route: IVP; Site: right antecubital;cp4 Disposition: 18:28 I was immediately available on-site in the Emergency Department for consultation in the ms3 care of the patient. Disposition Summary: 06/04/23 19:43 Discharge Ordered Notes: Location: Home sb4 Problem: new sb4 Symptoms: have improved sb4 Condition: Stable sb4 Diagnosis - Benign paroxysmal vertigo sb4 Followup: sb4 - With: Private Physician - When: 2 - 3 days - Reason: Recheck today's complaints, Re-evaluation by your physician Discharge Instructions: - Discharge Summary Sheet sb4 - Benign Positional Vertigo sb4 - Form - Blood Pressure Record Sheet sb4 Forms: - Medication Reconciliation Form sb4 - Thank You Letter sb4 - Antibiotic Education sb4 - Prescription Opioid Use sb4 - Patient Portal Instructions sb4 - Leadership Thank You Letter sb4 Signatures: Dispatcher [employer] Aisha Friend RN RN aa5 Angel Sung DO DO ms3 Daniella Hanson, JR PANaomie sb4 Dayana Collier cp4
[2023-06-04 20:17] VITALS: BP 124/64; TEMP 97.3; O2SAT 95
--- NOTE | 2023-06-07 15:08 | EKG ---
Test Date: 2023-06-04 Test Time: 18:01:08 Bilingual Interpreter: BRYAN MEASUREMENT RESULTS: Intervals: Rate: 72 AR: 168 QRSD: 96 QT: 398 QTc: 435 Curran: P: 36 AR: 168 QRS: 47 T: 174 INTERPRETIVE STATEMENTS: Normal sinus rhythm Cannot rule out Inferior infarct, age undetermined ST & T wave abnormality, consider lateral ischemia Abnormal ECG Compared to ECG 02/02/2023 15:45:29 Myocardial infarct finding now present ST (T wave) deviation still present Possible ischemia still present Electronically Signed On 06-07-23 15:01:53 LOCKSMITH APPRENTICE by Joe Al
== END ==
LOC: ER 17:36
DX: H81.10 Benign paroxysmal vertigo, unspecified ear (principal); Z99.2 Dependence on renal dialysis
CPT/HCPCS: 85025; 80048; 36415; 83735; 85610; 80076; 85730; 84484; 70450; 71045; J2405; 93005

== ENCOUNTER 2023-08-01 09:09 | Emergency (ER) | payer OTHER ==
--- NOTE | 2023-08-01 10:12 | RAD REPORT ---
EXAM DESCRIPTION: CT - Head Brain Wo Cont - 08/01/2023 10:02 am CLINICAL HISTORY: CONFUSED COMPARISON: Head Brain Wo Cont dated 06/04/2023; Head Brain Wo Cont dated 02/02/2023 TECHNIQUE: All CT scans are performed using dose optimization technique as appropriate and may inclu de automated exposure control or mA/KV adjustment according to patient size. FINDINGS: No intracranial hemorrhage, hydrocephalus or extra-axial fluid collection.No areas of brai n edema or evidence of midline shift. Arachnoid cyst at the left middle cranial fossa. Chronic small vessel ischemic changes. The paranasal sinuses and mastoids are clear. The calvarium is intact. IMPRESSION: No acute intracranial abnormality.
--- NOTE | 2023-08-01 10:13 | RAD REPORT ---
EXAM DESCRIPTION: RAD - Chest Pa And Lat (2 Views) - 08/01/2023 10:07 am CLINICAL HISTORY: CONGESTION COMPARISON: Chest Single View dated 06/04/2023; Chest Single View dated 02/02/2023; Chest Single View d ated 10/29/2022; Chest Single View dated 10/23/2022 FINDINGS: Lines: None. Lungs: No evidence of edema or pneumonia. Pleural: No significant pleural effusions or pneumothorax. Cardiac: Stable size and configuration. Mediastinum: Within normal limits. Bones: No acute fractures. Other: None IMPRESSION: No acute cardiopulmonary disease.
[2023-08-01 10:35] LABS: Absolute Basophils 0.1 K/uL (0-0.5); Absolute Eosinophils 0.1 K/uL (0-0.5); Absolute Lymphocytes (CBC) 0.7 K/uL (0.7-4.9); Absolute Monocytes 0.7 K/uL (0.1-1.3); Absolute Neutrophil 12.3 K/uL (1.8-8.0); Basophils % 0.8 % (0-1.3); Hematocrit 35.9 % (39.6-49.0); Lymphocytes % 5.4 % (15.3-44.8); MCH 32.9 pg (27.0-35.0); MCHC 33.5 g/dL (32.0-36.0); MCV 98.1 fL (80-100); MPV 7.2 fL (7.6-11.3); Monocytes % 4.8 % (3.3-12.3); Nucleated Red Blood Cells % 0.1 % (0-0); Platelets 412 thou/uL (152-406); RBC Red Blood Cell Count 3.66 M/uL (4.33-5.43)
[2023-08-01 10:50] LABS: SARS-CoV-2 Antigen CONTROL BLUE LINE VIS/BG OK; SARS-CoV-2 Antigen Rapid Res Negative (Negative)
[2023-08-01 11:00] LABS: Albumin 4.2 g/dL (3.4-5.0); Albumin/Globulin Ratio 0.9 (1.1-1.8); Anion Gap 17.4 mEq/L (5.0-15.0); Bilirubin Total 0.5 mg/dL (0.2-1.0); Globulin 4.8 g/dL (2.3-3.5); Magnesium 2.3 mg/dL (1.6-2.4); Potassium 4.4 mEq/L (3.5-5.1)
[2023-08-01 11:02] LABS: Phosphorus 10.2 mg/dL (2.5-4.9)
[2023-08-01 11:15] LABS: Blood Morphology Comment NOT SEEN (NOT SEEN); Platelet Estimate INCR; White Blood Cell Scan OK (OK)
[2023-08-01] MEDS ORDERED: ACETAMINOPHEN 500 MG TAB ONE (11:25)
--- NOTE | 2023-08-01 11:39 | EDPHYS ---
Physician Documentation [facility] Name: Alejandro Dunbar Age: 58 yrs Sex: Male : 1965 Arrival Date: 08/01/2023 Time: 09:09 Bed 12 Private MD: ED Physician Elmo Mosqueda HPI: 07/31 09:32 This 58 yrs old Male presents to ER via Ambulatory with complaints of Vomiting.sb4 09:32 Patient presents with several complaints today. States that he has had some nausea sb4 vomiting past couple days, he has had a lot of phlegm in his throat, he has felt like his hands are weaker than usual, and this morning he said his O2 was in the 70s. Normal vital signs noted upon arrival. In no acute distress during my assessment. Historical: - Allergies: 09:24 No Known Allergies; ll1 - PMHx: 09:24 Hypothyroidism; Diabetes - NIDDM; Dialysis; Dialysis catheter to right upper chest; ll1 High Cholesterol; Hypertension; - PSHx: 09:24 Left arm fistula; Tracheostomy and reversal; ll1 - Immunization history:: Adult Immunizations up to date. - Social history:: Smoking status: Patient denies any tobacco usage or history of. ROS: 09:32 Constitutional: Negative for fever, chills, and weight loss, sb4 09:32 ENT: Positive for 09:32 Respiratory: 09:32 Abdomen/GI: Positive for nausea and vomiting, 09:32 Neuro: Positive for weakness, 09:32 All other systems are negative, Exam: 09:33 Head/Face: Normocephalic, atraumatic. Eyes: Extra-ocular motions intact. Periorbital sb4 areas with no swelling, redness, or edema. ENT: Mucous membranes moist. Cardiovascular: Regular rate and rhythm with a normal S1 and S2. Respiratory: Lungs have equal breath sounds bilaterally, clear to auscultation and percussion. No rales, rhonchi or wheezes noted. No increased work of breathing, no retractions or nasal flaring. Abdomen/GI: Soft, non-tender, no distension. Skin: Warm, dry with normal turgor. Normal color with no rashes, no lesions, and no evidence of cellulitis. MS/ Extremity: Pulses equal, no cyanosis. Neurovascular intact. Full, normal range of motion. Neuro: Awake and alert, GCS 15, oriented to person, place, time, and situation. Motor strength 5/5 in all extremities. Sensory grossly intact. 09:33 Constitutional: The patient appears in no acute distress, alert, awake, Vital Signs: 09:24 BP 142 / 90; Pulse 71; Resp 18; Temp 98.7; Pulse Ox 96% on R/A; Weight 79.38 kg; Height ll1 5 ft. 4 in. ; Pain 0/10; 12:00 BP 152 / 67; Pulse 68; Resp 18; Temp 98.6; Pulse Ox 95% ; db 09:24 Body Mass Index 30.04 (79.38 kg, 162.56 cm) ll1 09:24 Pain Scale: Adult ll1 MDM: 09:14 Patient medically screened. sb4 11:37 Data reviewed: vital signs, nurses notes, lab test result(s), radiologic studies, and sb4 as a result, I will discharge patient. Consideration of Admission/Observation Escalation of care including admission/observation considered. Management of patient was discussed with the following: Manager Pipeline: Dr. Boss, does not recommend any intervention at this time. Counseling: I had a detailed discussion with the patient and/or guardian regarding the historical points, exam findings, and any diagnostic results supporting the discharge/admit diagnosis, lab results, radiology results, the need for outpatient follow up, dialysis tomorrow, to return to the emergency department if symptoms worsen or persist or if there are any questions or concerns that arise at home. 07/31 09:31 Order name: CBC with Diff; Complete Time: 11:16 sb4 07/31 09:31 Order name: CMP; Complete Time: 11:02 sb4 07/31 09:31 Order name: Magnesium; Complete Time: 11:02 sb4 07/31 09:31 Order name: Phosphorus; Complete Time: 11:02 sb4 07/31 09:31 Order name: BNP; Complete Time: 11:02 sb4 07/31 09:31 Order name: Lipase; Complete Time: 11:02 sb4 07/31 09:31 Order name: SARS RAPID; Complete Time: 10:55 sb4 07/31 09:31 Order name: Flu; Complete Time: 10:57 sb4 07/31 10:42 Order name: CBC Smear Scan; Complete Time: 11:16 EDMS 07/31 09:31 Order name: Chest Pa And Lat (2 Views) XRAY; Complete Time: 10:13 sb4 07/31 09:31 Order name: Head Brain Wo Cont CT; Complete Time: 10:12 sb4 07/31 09:31 Order name: IV Start; Complete Time: 10:22 sb4 07/31 09:31 Order name: Labs collected and sent; Complete Time: 10:22 sb4 Administered Medications: 11:27 Drug: Acetaminophen PO 1000 mg PO once Route: PO; db 12:00 Follow up: Response: No adverse reaction db Disposition Summary: 08/01/23 11:38 Discharge Ordered Problem: new sb4 Symptoms: are unchanged sb4 Condition: Stable sb4 Diagnosis - End stage renal disease sb4 - hyperphosphatemia - chronic sb4 Followup: sb4 - With: Emergency Department - When: As needed - Reason: Trouble breathing, Worsening of condition Discharge Instructions: - Discharge Summary Sheet sb4 - Hyperphosphatemia sb4 Forms: - Thank You Letter sb4 - Patient Portal Instructions sb4 - Leadership Thank You Letter sb4 Signatures: Dispatcher [employer] Volodymyr Hamm, RN RN ll1 Coco Polanco, RN RN Daniella Jennings PA-C PA-C sb4
--- NOTE | 2023-08-01 11:39 | ER ---
Nurse's Notes [facility] Name: Alejandro Dunbar Age: 58 yrs Sex: Male : 1965 Arrival Date: 08/01/2023 Time: 09:09 Bed 12 Private MD: Diagnosis: End stage renal disease;hyperphosphatemia - chronic Presentation: 07/31 09:24 Chief complaint: Patient states: N/V for a few days. Legs swollen. Cough with phlegm ll1 for 1 week. Dialysis M,W,F. Coronavirus screen: Client denies travel out of the [place] in the last 14 days. At this time, the client does not indicate any symptoms associated with coronavirus-19. Ebola Screen: Patient denies travel to an Ebola-affected area in the 21 days before illness onset. Initial Sepsis Screen: Does the patient meet any 2 criteria? No. Patient's initial sepsis screen is negative. Does the patient have a suspected source of infection? No. Patient's initial sepsis screen is negative. Risk Assessment: Do you want to hurt yourself or someone else? Patient reports no desire to harm self or others. Onset of symptoms was July 25, 2023. 09:24 Method Of Arrival: Ambulatory ll1 09:24 Acuity: KERRI 3 ll1 Triage Assessment: 09:27 General: Appears uncomfortable, Behavior is calm, cooperative, appropriate for age. ll1 Pain: Denies pain. Respiratory: Reports cough that is. GI: Reports nausea, vomiting. Musculoskeletal: Reports legs swelling. Historical: - Allergies: 09:24 No Known Allergies; ll1 - PMHx: 09:24 Hypothyroidism; Diabetes - NIDDM; Dialysis; Dialysis catheter to right upper chest; ll1 High Cholesterol; Hypertension; - PSHx: 09:24 Left arm fistula; Tracheostomy and reversal; ll1 - Immunization history:: Adult Immunizations up to date. - Social history:: Smoking status: Patient denies any tobacco usage or history of. Screenin:[facility] ED Fall Risk Assessment (Adult) History of falling in the last 3 months, db including since admission No falls in past 3 months (0 pts) Confusion or Disorientation No (0 pts) Intoxicated or Sedated No (0 pts) Impaired Gait No (0 pts) Mobility Assist Device Used No (0 pt) Altered Elimination No (0 pt) Score/Fall Risk Level 0 - 2 = Low Risk Oriented to surroundings, Maintained a safe environment. Abuse screen: Denies threats or abuse. Denies injuries from another. Nutritional screening: No deficits noted. Tuberculosis screening: No symptoms or risk factors identified. Assessment: 10:49 Reassessment: Patient appears in no apparent distress at this time. Patient and/or db family updated on plan of care and expected duration. Pain level reassessed. Patient is alert, oriented x 3, equal unlabored respirations, skin warm/dry/pink. PATIENT AMBULATORY TO RESTROOM. 11:32 Reassessment: Patient appears in no apparent distress at this time. Patient and/or db family updated on plan of care and expected duration. Pain level reassessed. Patient is alert, oriented x 3, equal unlabored respirations, skin warm/dry/pink. General: Appears in no apparent distress. comfortable, Behavior is calm, cooperative. Neuro: Level of Consciousness is awake, alert, obeys commands, Oriented to person, place, time, situation. Respiratory: Airway is patent Respiratory effort is even, unlabored, Respiratory pattern is regular, symmetrical. GI: Abdomen is non-distended, Reports nausea, vomiting. 12:00 Reassessment: Patient appears in no apparent distress at this time. Patient and/or db family updated on plan of care and expected duration. Pain level reassessed. Patient is alert, oriented x 3, equal unlabored respirations, skin warm/dry/pink. Vital Signs: 09:24 BP 142 / 90; Pulse 71; Resp 18; Temp 98.7; Pulse Ox 96% on R/A; Weight 79.38 kg; Height ll1 5 ft. 4 in. ; Pain 0/10; 12:00 BP 152 / 67; Pulse 68; Resp 18; Temp 98.6; Pulse Ox 95% ; db 09:24 Body Mass Index 30.04 (79.38 kg, 162.56 cm) ll1 09:24 Pain Scale: Adult ll1 ED Course: 09:12 Patient arrived in ED. ra3 09:13 Daniella Hanson PA-C is PHCP. sb4 09:13 Elmo Mosqueda MD is Attending Physician. sb4 09:26 Triage completed. ll1 09:26 Arm band placed on. ll1 10:02 Head Brain Wo Cont CT In Process Unspecified. EDMS 10:09 Chest Pa And Lat (2 Views) XRAY In Process Unspecified. EDMS 10:13 Patient placed in an exam room, on a stretcher. db 10:22 Flu Sent. bc6 10:22 SARS RAPID Sent. bc6 10:22 Lipase Sent. bc6 10:22 BNP Sent. bc6 10:22 Phosphorus Sent. bc6 10:22 Magnesium Sent. bc6 10:22 CMP Sent. bc6 10:22 CBC with Diff Sent. bc6 10:23 Initial lab(s) drawn, by me, sent to lab. COVID swab sent to lab. Flu and/or RSV swab bc6 sent to lab. Inserted saline lock: 22 gauge in right antecubital area, using aseptic technique. Blood collected. 10:49 Coco Polanco, RN is Primary Nurse. db 12:00 Patient has correct armband on for positive identification. Bed in low position. Call db light in reach. Side rails up X 1. Provided Education on: DISCHARGE. Pulse ox on. NIBP on. 12:00 No provider procedures requiring assistance completed. IV discontinued, intact, db bleeding controlled, No redness/swelling at site. Administered Medications: 11:27 Drug: Acetaminophen PO 1000 mg PO once Route: PO; db 12:00 Follow up: Response: No adverse reaction db Medication: 12:00 VIS not applicable for this client. db Outcome: 11:38 Discharge ordered by . sb4 12:00 Discharged to home ambulatory, db 12:00 Condition: stable 12:00 Discharge instructions given to patient, Instructed on discharge instructions, follow up and referral plans. 12:13 Patient left the ED. as6 Signatures: Dispatcher [employer] EDMS Volodymyr Richardson, RN RN ll1 Kash Hartmann, SANJAY RN as6 Coco Polanco, RN RN Daniella Jennings, PA-C PA-C sb4 Suma Go bc6 Annemarie Mancuso ra3 Corrections: (The following items were deleted from the chart) 10:13 10:08 Patient placed in an exam room, on a stretcher, ll1 db
[2023-08-01 13:17] VITALS: BP 142/90; TEMP 98.7; O2SAT 96
== END 2023-08-01 12:13 | disposition home or self-care (01) ==
LOC: ER 09:09
DX: E11.22 Type 2 diabetes mellitus with diabetic chronic kidney disease (principal); I12.0 Hypertensive chronic kidney disease with stage 5 chronic kidney disease or end stage renal disease; N18.6 End stage renal disease; Z99.2 Dependence on renal dialysis; E83.39 Other disorders of phosphorus metabolism; Z11.52 Encounter for screening for COVID-19
CPT/HCPCS: 36415; 70450; 71046; 80053; 83690; 83735; 83880; 84100; 85025; 87804; 87811; 99284

== ENCOUNTER 2023-08-02 08:23 | Inpatient (IN) | payer OTHER ==
[2023-08-02] MEDS ORDERED: FUROSEMIDE 40 MG/4 ML VIAL ONE (08:55)
[2023-08-02 09:01] LABS: Absolute Basophils 0.1 K/uL (0-0.5); Absolute Eosinophils 0.2 K/uL (0-0.5); Absolute Lymphocytes (CBC) 0.7 K/uL (0.7-4.9); Absolute Monocytes 0.8 K/uL (0.1-1.3); Absolute Neutrophil 12.1 K/uL (1.8-8.0); Basophils % 0.5 % (0-1.3); Eosinophils % 1.4 % (0-4.4); Hemoglobin 10.5 g/dL (13.6-17.9); Lymphocytes % 5.3 % (15.3-44.8); MCHC 32.8 g/dL (32.0-36.0); MCV 97.5 fL (80-100); MPV 7.6 fL (7.6-11.3); Monocytes % 5.6 % (3.3-12.3); Neutrophils % 87.2 % (41.7-73.7); Nucleated Red Blood Cells % 0.1 % (0-0); Platelets 366 thou/uL (152-406); RBC Red Blood Cell Count 3.29 M/uL (4.33-5.43); Red Cell Distribution Width 15.2 % (12.1-15.2)
[2023-08-02 09:12] LABS: Anion Gap 9.6 mEq/L (5.0-15.0); Potassium 3.6 mEq/L (3.5-5.1); Troponin High Sensitivity 57.4 pg/mL (<58.9)
--- NOTE | 2023-08-02 09:16 | ER ---
Nurse's Notes [facility] Name: Alejandro Dunbar Age: 58 yrs Sex: Male : 1965 Arrival Date: 08/02/2023 Time: 08:23 Bed 2 Private MD: Diagnosis: Volume Overload Presentation: 08/01 08:28 Chief complaint: EMS states: patient was at dialysis and O2 sats dropped into the low ko1 80's, when EMS arrived he dropped into the 60's. Coronavirus screen: At this time, the client does not indicate any symptoms associated with coronavirus-19. Ebola Screen: No symptoms or risks identified at this time. Initial Sepsis Screen: Does the patient meet any 2 criteria? No. Patient's initial sepsis screen is negative. Does the patient have a suspected source of infection? No. Patient's initial sepsis screen is negative. Risk Assessment: Do you want to hurt yourself or someone else? Patient reports no desire to harm self or others. Onset of symptoms was August 02, 2023. Care prior to arrival: IV initiated. 20 GA, in the right antecubital area, Glucose check: 126 Oxygen administered. via CPAP or BiPAP. 08:28 Method Of Arrival: EMS: [facility] ko1 08:28 Acuity: KERRI 2 ko1 Triage Assessment: 08:31 General: Appears comfortable, Behavior is calm, cooperative, appropriate for age. Pain: ko1 Denies pain. Historical: - Allergies: 08:31 No Known Allergies; ko1 - PMHx: 08:31 Diabetes - NIDDM; Dialysis; Dialysis catheter to right upper chest; High Cholesterol; ko1 Hypertension; Hypothyroidism; - PSHx: 08:31 Left arm fistula; Tracheostomy and reversal; ko1 - Immunization history:: Adult Immunizations unknown. - Social history:: Smoking status: unknown. - Infectious Disease History:: Denies. Screenin:16 [facility] ED Fall Risk Assessment (Adult) History of falling in the last 3 months, db including since admission No falls in past 3 months (0 pts) Confusion or Disorientation No (0 pts) Intoxicated or Sedated No (0 pts) Impaired Gait No (0 pts) Mobility Assist Device Used No (0 pt) Altered Elimination No (0 pt) Score/Fall Risk Level 0 - 2 = Low Risk Oriented to surroundings, Maintained a safe environment. Abuse screen: Denies threats or abuse. Denies injuries from another. Nutritional screening: No deficits noted. Tuberculosis screening: No symptoms or risk factors identified. Assessment: 09:00 Reassessment: Patient appears in no apparent distress at this time. Patient and/or db family updated on plan of care and expected duration. Pain level reassessed. Patient is alert, oriented x 3, equal unlabored respirations, skin warm/dry/pink. General: Appears in no apparent distress. comfortable, Behavior is calm, cooperative. Neuro: Level of Consciousness is awake, alert, obeys commands, Oriented to person, place, time, situation. Respiratory: Airway is patent Respiratory effort is even, unlabored, Respiratory pattern is regular, symmetrical. 10:00 Reassessment: Patient appears in no apparent distress at this time. Patient and/or db family updated on plan of care and expected duration. Pain level reassessed. Patient is alert, oriented x 3, equal unlabored respirations, skin warm/dry/pink. 10:15 Reassessment: PT USED BEDSIDE COMMODE. db 10:55 Reassessment: PATIENT PLACED BACK ON O2. PATIENT REMOVED NC 4 L AFTER USING RESTROOM. db 11:08 Reassessment: FLIGHT TEST DATA ACQUISITION TECHNICIAN AT PATIENT BEDSIDE. REQUESTS PATIENT TO BE PLACED BACK ON db BIPAP. PATIENT REQUESTING FOOD AND STATES WANTS BIPAP OFF. 11:12 Reassessment: REPORT GIVEN TO DIAGNOSTIC IMAGING MANAGER. db 11:30 Reassessment: Patient appears in no apparent distress at this time. Patient and/or db family updated on plan of care and expected duration. Pain level reassessed. Patient is alert, oriented x 3, equal unlabored respirations, skin warm/dry/pink. SLEEPING EASILY ROUSABLE REQUESTING FOOD. 12:00 Reassessment: Patient appears in no apparent distress at this time. Patient and/or db family updated on plan of care and expected duration. Pain level reassessed. Patient is alert, oriented x 3, equal unlabored respirations, skin warm/dry/pink. PATIENT IN DIALYSIS. 14:18 Reassessment: CALLED FLOOR TO NOTIFY PATIENT IS STILL IN DIALYSIS ASKED IF THERE ARE db ANY QUESTIONS. STATES WILL CALL BACK IF THEY HAVE QUESTIONS . VERIFIED RECEIVED PATIENT REPORT FAX. Vital Signs: 08:28 BP 153 / 81; Pulse 64; Resp 15; Temp 97.2; Pulse Ox 99% on BiPAP; FiO2 50 %; ko1 09:00 BP 147 / 70; Pulse 59; Resp 18; Pulse Ox 100% on R/A; db 10:48 BP 166 / 70; Pulse 64; Resp 18; Pulse Ox 100% on 4 lpm NC; db 11:00 BP 163 / 71; Pulse 61; Resp 16; Pulse Ox 100% on BiPAP; db 11:30 BP 160 / 80; Pulse 61; Resp 18; Pulse Ox 100% on 4 lpm NC; db Loretta Coma Score: 11:30 Eye Response: spontaneous(4). Motor Response: obeys commands(6). Verbal Response: db oriented(5). Total: 15. ED Course: 08:26 Patient arrived in ED. sb4 08:27 Diego Auguste MD is Attending Physician. ec2 08:31 Triage completed. ko1 08:31 Arm band placed on right wrist. Patient placed in an exam room, on a stretcher, on ko1 sas administrator, on pulse oximetry, Patient notified of wait time. 08:50 Initial lab(s) drawn, by me, sent to lab. Maintain EMS IV. Dressing intact. Good blood db return noted. Site clean \T\ dry. Gauge \T\ site: 20 G RAC. 08:51 EKG done, by ED staff, reviewed by Diego Auguste MD. em1 09:16 Shirley York MD is Hospitalizing Provider. ec2 09:22 XRAY Chest (1 view) In Process Unspecified. EDMS 11:08 Coco Polanco, RN is Primary Nurse. db 12:01 Patient has correct armband on for positive identification. Bed in low position. Call db light in reach. Side rails up X2. Provided Education on: DIALYSIS AND LABS. tree feller on. Pulse ox on. NIBP on. Warm blanket given. 12:01 No provider procedures requiring assistance completed. Patient admitted, IV remains in db place. Administered Medications: 08:56 Drug: Furosemide IVP 80 mg IVP once; give over 2 minutes Route: IVP; Site: right ko1 antecubital; 09:30 Follow up: Response: No adverse reaction db Medication: 12:01 VIS not applicable for this client. db Outcome: 09:16 Decision to Hospitalize by Provider. ec2 12:01 Admitted to ER Hold. Please see [facility] for further documentation. db 12:01 Condition: stable 12:01 Instructed on the need for admit, 14:20 Patient left the ED. db Signatures: Dispatcher [employer] Kory Cleveland em1 Latoya Davis, RN RN ko1 Coco Polanco RN RN db Daniella Hanson, PANaomie PANaomie sb4 Diego Auguste MD MD ec2 Corrections: (The following items were deleted from the chart) 11:12 10:15 Reassessment: FLIGHT TEST DATA ACQUISITION TECHNICIAN AT PATIENT BEDSIDE. REQUESTS PATIENT TO BE PLACED BACK db ON BIPAP. PATIENT REQUESTING FOOD AND STATES WANTS BIPAP OFF db
--- NOTE | 2023-08-02 09:16 | EDPHYS ---
Physician Documentation [facility] Name: Alejandro Dunbar Age: 58 yrs Sex: Male : 1965 Arrival Date: 08/02/2023 Time: 08:23 Bed 2 Private MD: ED Physician Diego Auguste HPI: 08/01 08:29 This 58 yrs old Male presents to ER via Unassigned with complaints of dyspnea. ec2 08:29 Patient arrives today due to concern for shortness of breath. Patient has ESRD, ec2 dialysis patient, undergoes dialysis Wednesday, last dialysis was 3 days ago, was at his dialysis clinic today, underwent 1.5 hours of dialysis, was noted to be hypoxic with saturation 60%. EMS was called subsequently placed on BiPAP. EMS also reports a given sublingual nitroglycerin as well.. Historical: - Allergies: 08:31 No Known Allergies; ko1 - PMHx: 08:31 Diabetes - NIDDM; Dialysis; Dialysis catheter to right upper chest; High Cholesterol; ko1 Hypertension; Hypothyroidism; - PSHx: 08:31 Left arm fistula; Tracheostomy and reversal; ko1 - Immunization history:: Adult Immunizations unknown. - Social history:: Smoking status: unknown. - Infectious Disease History:: Denies. ROS: 08:29 Constitutional: as per hpi ec2 Exam: 08:29 Constitutional: GEN: NAD Head: atraumatic Eyes: EOMI Ears: External ears are ec2 normal. LUNGS: Tachypnea, rales in the bilateral lung trevino, up to the midlung. ABD: non-distended SKIN: no evidence of rashes MSK: no evidence of trauma NEURO: moves all extremities equally Vital Signs: 08:28 BP 153 / 81; Pulse 64; Resp 15; Temp 97.2; Pulse Ox 99% on BiPAP; FiO2 50 %; ko1 09:00 BP 147 / 70; Pulse 59; Resp 18; Pulse Ox 100% on R/A; db 10:48 BP 166 / 70; Pulse 64; Resp 18; Pulse Ox 100% on 4 lpm NC; db 11:00 BP 163 / 71; Pulse 61; Resp 16; Pulse Ox 100% on BiPAP; db 11:30 BP 160 / 80; Pulse 61; Resp 18; Pulse Ox 100% on 4 lpm NC; db Loretta Coma Score: 11:30 Eye Response: spontaneous(4). Motor Response: obeys commands(6). Verbal Response: db oriented(5). Total: 15. MDM: 08:28 Patient medically screened. ec2 08:29 Data reviewed: vital signs. ED course: Patient arrives today for shortness of breath. ec2 Examination remarkable for pulmonary findings as noted above. Will obtain lab work, EKG, chest x-ray. Clinically patient appears volume overloaded, will continue on BiPAP, give the patient diuretic as the patient does have some minimal urine output.. 08:49 ED course: EKG independently reviewed and interpreted by me, shows normal sinus rhythm, ec2 rate of 61, no acute ST segment elevations, intervals are nonconcerning, nonspecific T wave abnormalities noted.. 09:15 ED course: Metabolic profile shows slight hypokalemia at 3.6, expected renal ec2 dysfunction noted, CBC shows slight leukocytosis, elevated BNP at 10,000, troponin within normal ranges. Will admit for volume overload secondary to patient's ESRD, discussed case with hospitalist, pending admission. . 08/01 08:27 Order name: Basic Metabolic Panel; Complete Time: 09:15 ec2 08/01 08:27 Order name: CBC with Diff ec2 08/01 08:27 Order name: NT PRO-BNP; Complete Time: 09:15 ec2 08/01 08:27 Order name: Troponin HS; Complete Time: 09:15 ec2 08/01 11:42 Order name: CBC Smear Scan EDME 08/01 08:27 Order name: XRAY Chest (1 view); Complete Time: 09:52 ec2 08/01 08:27 Order name: EKG; Complete Time: 08:28 ec2 08/01 10:08 Order name: CONS Physician Consult EDME 08/01 08:27 Order name: Cardiac monitoring; Complete Time: 08:51 ec2 08/01 08:27 Order name: EKG - Nurse/Tech; Complete Time: 08:51 ec2 08/01 08:27 Order name: IV Saline Lock; Complete Time: 08:51 ec2 08/01 08:27 Order name: Labs collected and sent; Complete Time: 08:51 ec2 08/01 08:27 Order name: O2 Per Protocol; Complete Time: 08:51 ec2 08/01 08:27 Order name: O2 Sat Monitoring; Complete Time: 08:51 ec2 Administered Medications: 08:56 Drug: Furosemide IVP 80 mg IVP once; give over 2 minutes Route: IVP; Site: right ko1 antecubital; 09:30 Follow up: Response: No adverse reaction db Disposition Summary: 08/02/23 09:16 Hospitalization Ordered Notes: Hospitalization Status: Inpatient Admission ec2 Provider: Shirley York ec2 Condition: Stable ec2 Problem: an acute exacerbation ec2 Symptoms: have improved ec2 Bed/Room Type: Standard ec2 Location: Telemetry/MedSurg (Inpatient)(08/02/23 13:39) jr12 Room Assignment: [facility](08/02/23 13:39) jr Diagnosis - Volume Overload ec2 Forms: - Medication Reconciliation Form ec2 - SBAR form ec2 - Leadership Thank You Letter ec2 Critical care time excluding procedures: 09:16 Critical care time: Bedside Care: 30 minutes, Consultation: 5 minutes. Total time: 35 ec2 minutes Signatures: Dispatcher [employer] EDMS Latoya Davis, RN RN ko1 Coco Polanco, RN RN db Diego Auguste MD MD ec2 Anuradha Cespedes jr12 Corrections: (The following items were deleted from the chart) 08:28 08:28 BiPap ([employer] Only)+[id number] ordered. EDMS EDMS 13:18 09:16 Telemetry/MedSurg (Inpatient) ec2 ec2 13:18 09:16 ec2 ec2 13:39 13:18 BR ER HOLD ec2 jr12 13:39 13:18 ERHOLD- ec2 jr12
--- NOTE | 2023-08-02 09:36 | RAD REPORT ---
EXAM DESCRIPTION: RAD - Chest Single View - 08/02/2023 9:20 am CLINICAL HISTORY: volume overload COMPARISON: Chest Pa And Lat (2 Views) dated 08/01/2023; Chest Single View dated 06/04/2023; Chest Sing le View dated 02/02/2023; Chest Single View dated 10/29/2022 FINDINGS: Lines: None. Lungs: Mild coarsening of the pulmonary interstitium. Lung volumes are low. Pleural: Chronic blunting of the left costophrenic angle. Cardiac: Similar size and configuration. Mediastinum: Within normal limits. Bones: No acute fractures. Other: None IMPRESSION: No acute cardiopulmonary disease.
--- NOTE | 2023-08-02 10:02 | P.HP ---
Certification for Inpatient Patient admitted to: Inpatient With expected LOS: <2 Midnights <Radha Licea - Last Filed: 08/02/23 17:15> Patient History Date of Service: 08/02/23 Reason for admission: Shortness of breath History of Present Illness: 58-year-old male with a past medical history of non-insulin dependent type 2 diabetes, hyperlipidemia, hypertension, ESRD on HD MWF, and hypothyroidism who presented to the emergency department with complaints of shortness of breath. Patient was evaluated by EMS, was hypoxic with O2 saturation 60%, placed patient was placed on BiPAP per EMS. He reports shortness of breath, progressively getting worse, shortness of breath worse with exertion. He reports history of end-stage renal disease dialysis Wednesday, last dialysis 3 days ago. He reports generalized malaise, fatigue, shortness of breath that is worse with exertion. No reported chest pain, cough, fever, nausea vomiting diarrhea. Plan to admit for fluid volume overload, end-stage renal disease on hemodialysis. ER evaluate : EKG independently reviewed shows normal sinus rhythm, rate of 61, no acute ST segment elevations, intervals are nonconcerning, nonspecific T wave abnormalities, P 153 / 81; Pulse 64; Resp 15; Temp 97.2; Pulse Ox 99% on BiPAP; FiO2 50 %; Furosemide IVP 80 mg IVP once; Lab evaluation WBC elevated 13.90,left shift 87.2, Anemia HH 10.5/32.0, sodium 135, BUN 48/ CR 9.30,BNP 66949, Tropinin 57.4, CXRIMPRESSION: No acute cardiopulmonary disease. - Past Medical/Surgical History Diabetic: Yes -: hypertension -: hypothyroid -: TYPE 2 DIABETES -: Dyslipidemia -: ESRDMWF -: Hypoxic hypercapnic respiratory failure -: Shingles -: Trach with reversal Psychosocial/ Personal History: Patient lives at home with his brother. - Family History Sister -: Diabetes Brother -: Diabetes - Social History Alcohol use: Yes CD- Drugs: No Caffeine use: Yes <Radha Licea - Last Filed: 08/02/23 17:15> Date of Service: 08/02/23 <Shirley York - Last Filed: 08/02/23 18:00> Allergies No Known Allergies Allergy (Verified 06/01/22 00:37) Home Medications: Atorvastatin Calcium [Lipitor] 80 mg PO BEDTIME 08/02/23 Levothyroxine Sodium [Levothyroxine] 200 mcg PO DAILY 08/02/23 Levothyroxine Sodium [Unithroid] 25 mcg PO DAILY 08/02/23 Metoprolol Succinate [Toprol Xl] 25 mg PO DAILY 08/02/23 Patiromer Calcium Sorbitex [Veltassa] 8.4 gm PO DAILY 08/02/23 Sucroferric Oxyhydroxide [Velphoro] 2 tab PO TIDWM 08/02/23 hydrOXYzine HCL [Atarax] 25 mg PO DAILY 08/02/23 Review of Systems per HPI <Radha Licea - Last Filed: 08/02/23 17:15> Physical Examination - Physical Exam General: Alert, In no apparent distress, Mild distress, Obese HEENT: Atraumatic, Normocephalic Neck: 2+ carotid pulse no bruit, JVD not distended Respiratory: Crackles/rales, Other (Tachypneic) Cardiovascular: Normal pulses, Regular rate/rhythm Gastrointestinal: Normal bowel sounds, Soft and benign Musculoskeletal: No clubbing, No swelling Integumentary: No rashes, No breakdown - Studies Laboratory Data (last 24 hrs) 08/02/23 08/02/23 08:45 08:45 WBC 13.90 H Hgb 10.5 L D Hct 32.0 L Plt Count 366 Sodium 135 L Potassium 3.6 D BUN 48 H Creatinine 9.30 H Glucose 133 H <Radha Licea - Last Filed: 08/02/23 17:15> - Studies Laboratory Data (last 24 hrs) 08/02/23 08/02/23 08:45 08:45 WBC 13.90 H Hgb 10.5 L D Hct 32.0 L Plt Count 366 Sodium 135 L Potassium 3.6 D BUN 48 H Creatinine 9.30 H Glucose 133 H <Shirley York - Last Filed: 08/02/23 18:00> Assessment and Plan - Plan Assessment plan Fluid volume overload secondary to ESRD on hemodialysis Acute hypoxic respiratory failure secondary to fluid volume overload Leukocytosis Nephrology consulted. Dialysis schedule per family welfare social work professor. Continue supportive care. Strict I&O, fluid restriction, Continue O2 therapy. Further management per family welfare social work professor. EKG normal sinus rhythm, rate of 61, no acute ST segment elevations, intervals are nonconcerning, nonspecific T wave abnormalities, P VS 153 / 81; Pulse 64; Resp 15; Temp 97.2; Pulse Ox 99% on BiPAP; FiO2 50 %; Furosemide IVP 80 mg IVP once; Lab evaluation WBC elevated 13.90,left shift 87.2, sodium 135, BUN 48/ CR 9.30,BNP 71063, Tropinin 57.4, CXRIMPRESSION: No acute cardiopulmonary disease. Hypokalemia Trend electrolytes replace as needed DM2 with neuropathy. BS monitoring with sliding scale insulin. Continue gabapentin for his neuropathy. GERD Continue Pepcid AC. Hypothyroidism. Continue Synthroid. Hypertension. Poorly controlled. Continue home medications and hydralazine as needed. Anemia of chronic disease. H&H stable. We will continue to monitor hemoglobin and transfuse if less than 7.0. Anemia HH 10.5/32.0, History of constipation. Continue home medications. DVT prophylaxis with heparin subQ Renal diet Full code Disposition Home, independent prior Discharge Plan: Home - Advance Directives Does patient have a Living Will: No Does patient have a Durable POA for Healthcare: No - Code Status/Comfort Care Code Status: Full Code Critical Care: No Time Spent Managing Pts Care (In Minutes): 55 <Radha Licea - Last Filed: 08/02/23 17:15> - Plan Pt seen and examined. I agree with the note by the MANUFACTURING MECHANIC. Pt is a 58 yo male with past medical history of non-insulin dependent type 2 diabetes, hyperlipidemia, hypertension, ESRD on HD MWF, and hypothyroidism who presents with SOB due to volume overload. Pt became hypoxic at dialysis center and EMS was called. Upon EMS arrival, his oxygen saturation dropped to 60%. It improved with BIPAP. Upon arrival in the ER, lab studies show BNP 38439, troponin 57.4, K 3.6, Na 135, cr 9.3, WBC 13.9 and Hgb 10.5. At bedside, pt is in NAD A/P: Acute resp failure with hypoxia: Due to volume overload/sleep apnea. Will continue CPAP, HD and strict I/O. ESRD On HD MWF: Will consult Nephrology for HD. last dialysis was 3 days ago. [place] [address]. Likely due to ESRD. Will f/u Echo. DM II: Continue accuchek, SSI and ADA diet. Sleep apnea: Will give CPAP at night. Will continue home meds for other chronic medical problems. <Shirley York - Last Filed: 08/02/23 18:00>
[2023-08-02] MEDS ORDERED: ACETAMINOPHEN 500 MG TAB PO PRN (10:07)
[2023-08-02] MEDS ORDERED: ONDANSETRON 4 MG/2 ML VIAL IV PRN (10:07)
[2023-08-02 11:42] LABS: Blood Morphology Comment NOT SEEN (NOT SEEN); Platelet Estimate ADEQ; White Blood Cell Scan OK (OK)
[2023-08-02] MEDS ORDERED: GLUCAGON 1 MG/VIAL IM PRN (12:00)
[2023-08-02] MEDS ORDERED: D50W 25 GM/50 ML SYRINGE IV PRN (12:00)
[2023-08-02] MEDS ORDERED: D10W 125 ML IV PRN (12:05)
--- NOTE | 2023-08-02 13:37 | EKG ---
Test Date: 2023-08-02 Test Time: 08:36:36 Ferryboat Captain: SCOTT MEASUREMENT RESULTS: Intervals: Rate: 61 TN: 172 QRSD: 86 QT: 418 QTc: 420 Knobel: P: 36 TN: 172 QRS: 42 T: 167 INTERPRETIVE STATEMENTS: Normal sinus rhythm ST & T wave abnormality, consider lateral ischemia Abnormal ECG Compared to ECG 06/04/2023 18:01:08 Myocardial infarct finding no longer present ST (T wave) deviation still present Possible ischemia still present Electronically Signed On 08-02-23 13:35:54 CDT by Joe Al
[2023-08-02 15:10] VITALS: BMI 30.2
[2023-08-02] MEDS: INSULIN REGULAR (HUMAN) 100 UNIT/ML SQ SCH (15:16)
[2023-08-02] MEDS: HEPARIN 5000 UNIT/ML 1 ML VIAL SQ SCH (16:19)
--- NOTE | 2023-08-03 03:09 | CON ---
Date of Consultation: 08/02/2023 Chief Complaint: End-stage renal disease, fluid overload, shortness of breath, and generalized weakn ess. History Of Present Illness: The patient is a 58-year-old man with history of insulin-dependent diabe madi mellitus, end-stage renal disease secondary to diabetic nephropathy, history of hyperlipidemia, h ypertension. He has been on dialysis for end-stage renal disease and he is dialyzed on Wednesday, , Wednesday. Today, he came to the dialysis center. He was dialyzed, although despite the fact jean t ultrafiltration was done to control volemia, patient became short of breath and lethargic. Blood p ressure was stable. He remained hemodynamically stable. Patient was evaluated by EMS and was found to have hypoxemic respiratory failure with O2 saturations dropping to 60. The patient was placed on BiPAP per EMS and transferred to emergency room. The patient was seen by me in the emergency room an d he was on O2 nasal cannula, somewhat lethargic and BiPAP was ordered again. The patient was schedu led in the hospital to have ultrafiltration done for volume control. He was 6 kg above his dry weigh t, and during dialysis in the outpatient center, ultrafiltration was obtained and 2 L was removed. P atient although remains fluid overloaded and is to have daily treatment with dialysis to control vole denisa. The patient has history of obstructive sleep apnea and previously multiple admissions for conge stive heart failure with respiratory failure. The patient is cooperative and blood pressure remains elevated. Dialysis was ordered for metabolic clearance, although today is limited to ultrafiltration because the patient already received dialysis of 3 hours in outpatient setting and he remains fluid overloaded and he will require selective treatment with pure ultrafiltration. Review of Systems: Patient is lethargic. He denies pain. He cannot provide review of systems, although he denies pain and he denies headache or new vision changes. Past Medical History: Hypertension; hypothyroid; diabetes mellitus type 2 with diabetic retinopathy, nephropathy, neuropathy; end-stage renal disease, on Wednesday, Wednesday, Wednesday; hypoxemic hypercapni c respiratory failure; history of shingles; trach with reversal; respiratory failure on previous occa hayden. Family History: Sister, diabetes. Brother, diabetes. Physical Examination: General: Patient is awake, follows commands. HEENT: Eyes: Anicteric sclerae. Facial edema present. Neck: Supple. No bruits. Lungs: Few rhonchi. Crackles at bases. Heart: S1, S2. No pericardial friction. Abdomen: Soft, benign, nontender. Extremities: Some edema present in both legs. Impression And Plan: 1.End-stage renal disease. The patient will require daily dialysis for volume control. Electrolyte s are stable. Continue to monitor renal panel. 2.Continue O2 therapy with BiPAP treatment for respiratory acidosis. Management per primary team. Recommend to check ABG. 3.Elevated WBC. Monitor blood culture. 4.Hypokalemia. Monitor potassium level after dialysis if it is in the low-normal range. Monitor el ectrolytes daily. 5.Diabetes mellitus with neuropathy. Monitor blood glucose. 6.Hypothyroid. Continue TSH and monitor lab. 7.Hypertension, poorly controlled. Patient is on hydralazine. Adjust medication according to blood pressure log. 8.Anemia of chronic disease. Hemoglobin level 10.5, hematocrit 32. Monitor. At this point, larry t does not need SUMIT. 9.Deep venous thrombosis prophylaxis with subcu heparin. JULEE/CASSIE Voice ID: [id number] Report ID: [id number]
[2023-08-03 03:52] LABS: Absolute Basophils 0.1 K/uL (0-0.5); Absolute Eosinophils 0.2 K/uL (0-0.5); Absolute Lymphocytes (CBC) 1.1 K/uL (0.7-4.9); Absolute Monocytes 0.7 K/uL (0.1-1.3); Absolute Neutrophil 10.5 K/uL (1.8-8.0); Eosinophils % 1.6 % (0-4.4); Hematocrit 35.4 % (39.6-49.0); Hemoglobin 11.4 g/dL (13.6-17.9); Lymphocytes % 8.4 % (15.3-44.8); MCH 31.6 pg (27.0-35.0); MCHC 32.1 g/dL (32.0-36.0); MCV 98.4 fL (80-100); MPV 8.1 fL (7.6-11.3); Monocytes % 5.5 % (3.3-12.3); Neutrophils % 83.5 % (41.7-73.7); Platelets 348 thou/uL (152-406); Red Cell Distribution Width 15.4 % (12.1-15.2)
[2023-08-03 04:55] LABS: Albumin/Globulin Ratio 0.9 (1.1-1.8); Anion Gap 15.1 mEq/L (5.0-15.0); Bilirubin Total 0.4 mg/dL (0.2-1.0); Globulin 4.4 g/dL (2.3-3.5); Phosphorus 8.4 mg/dL (2.5-4.9); Protein, Total 8.4 g/dL (6.4-8.2)
[2023-08-03 04:56] LABS: Magnesium 2.2 mg/dL (1.6-2.4); Potassium 4.1 mEq/L (3.5-5.1)
--- NOTE | 2023-08-03 08:13 | P.PN ---
Subjective Date of Service: 08/03/23 Chief Complaint: Shortness of breath Patient reports had dialysis yesterday, nephrology following, shortness of breath with exertion, He reports home O2 on 5 L, he reports trouble swallowing, speech eval ordered for today - Physical Exam General: Alert, x 3 HEENT: Atraumatic, Normocephalic Neck: 2+ carotid pulse no bruit, JVD not distended Respiratory: Crackles/rales, bilateral lower extremity edema Cardiovascular: Normal pulses, Regular rate/rhythm, Gastrointestinal: Normal bowel sounds, Soft and benign Musculoskeletal: No clubbing, No swelling Integumentary: No rashes, No breakdown Review of Systems per HPI Physical Examination - Vital Signs Temperature: 97.6 F Blood Pressure: 140/72 Pulse: 70 Respirations: 18 Pulse Ox (%): 91 - Studies Laboratory Data (last 24 hrs) 08/02/23 08/02/23 08:45 08:45 WBC 13.90 H Hgb 10.5 L D Hct 32.0 L Plt Count 366 Sodium 135 L Potassium 3.6 D BUN 48 H Creatinine 9.30 H Glucose 133 H Assessment And Plan - Plan Assessment plan Fluid volume overload secondary to ESRD on hemodialysis Acute hypoxic respiratory failure secondary to fluid volume overload Leukocytosis Noncompliance Nephrology consulted. Dialysis schedule per [employer] systems administrator. Continue supportive care. Strict I&O, fluid restriction, Continue O2 therapy. Further management per [employer] systems administrator. EKG normal sinus rhythm, rate of 61, no acute ST segment elevations, intervals are nonconcerning, nonspecific T wave abnormalities, P VS 153 / 81; Pulse 64; Resp 15; Temp 97.2; Pulse Ox 99% on BiPAP; FiO2 50 %; Furosemide IVP 80 mg IVP once; Lab evaluation WBC elevated 13.90,left shift 87.2, sodium 135, BUN 48/ CR 9.30,BNP 49787, Tropinin 57.4, CXRIMPRESSION: No acute cardiopulmonary disease. 08/01 Patient is noncompliant dialysis time By hour and a half Bilateral lower extremity edema IMPRESSION: No DVT in either lower extremity. Dysphagia 08/01 speech eval Hypokalemia Trend electrolytes replace as needed DM2 with neuropathy. BS monitoring with sliding scale insulin. Continue gabapentin for his neuropathy. GERD Continue Pepcid AC. Hypothyroidism. Continue Synthroid. Hypertension. Poorly controlled. Continue home medications and hydralazine as needed. Anemia of chronic disease. H&H stable. We will continue to monitor hemoglobin and transfuse if less than 7.0. Anemia HH 10.5/32.0, History of constipation. Continue home medications. DVT prophylaxis with heparin subQ Renal diet Full code Disposition Home, independent prior Discharge Plan: Home Critical Care: No Time Spent Managing PTS Care (In Minutes): 35
[2023-08-03] MEDS: hydrOXYzine HCL 25 MG TAB PO SCH (09:47)
[2023-08-03] MEDS: METOPROLOL XL 25 MG TAB PO SCH (09:47)
[2023-08-03] MEDS: LEVOTHYROXINE SOD 0.025 MG TAB PO SCH (09:47)
--- NOTE | 2023-08-03 10:50 | RAD REPORT ---
EXAM DESCRIPTION: US - Extrem Venous W Compress Sami - 08/03/2023 9:23 am CLINICAL HISTORY: BLE edema COMPARISON: Hemodialysis Graft dated 12/07/2022 TECHNIQUE: Real-time sonographic evaluation of the lower extremity deep venous systems was performed using color Doppler, grayscale, and compression. FINDINGS: Bilateral lower extremities. Normal compressibility, flow augmentation, phasic flow and spontaneous flow is identified in both the left and right lower extremity deep venous systems. No intraluminal filling defects seen. IMPRESSION: No DVT in either lower extremity.
[2023-08-03] MEDS: SEVELAMER CARBONATE 800 MG TABLET PO SCH (11:39)
[2023-08-03] MEDS: LEVOTHYROXINE SOD 0.1 MG TAB PO ONE (11:39)
--- NOTE | 2023-08-03 12:53 | P.DS ---
Admission Date: 08/02/23 Discharge Date: 08/04/23 Disposition: ROUTINE DISCHARGE Discharge Condition: FAIR Reason for Admission: Shortness of breath Brief History of Present Illness: 58-year-old male with a past medical history of non-insulin dependent type 2 diabetes, hyperlipidemia, hypertension, ESRD on HD MWF, and hypothyroidism who presented to the emergency department with complaints of shortness of breath. Patient was evaluated by EMS, was hypoxic with O2 saturation 60%, placed patient was placed on BiPAP per EMS. He reports shortness of breath, progressively getting worse, shortness of breath worse with exertion. He reports history of end-stage renal disease dialysis Wednesday, last dialysis 3 days ago. He reports generalized malaise, fatigue, shortness of breath that is worse with exertion. No reported chest pain, cough, fever, nausea vomiting diarrhea. Plan to admit for fluid volume overload, end-stage renal disease on hemodialysis. ER evaluate : EKG independently reviewed shows normal sinus rhythm, rate of 61, no acute ST segment elevations, intervals are nonconcerning, nonspecific T wave abnormalities, P 153 / 81; Pulse 64; Resp 15; Temp 97.2; Pulse Ox 99% on BiPAP; FiO2 50 %; Furosemide IVP 80 mg IVP once; Lab evaluation WBC elevated 13.90,left shift 87.2, Anemia HH 10.5/32.0, sodium 135, BUN 48/ CR 9.30,BNP 57687, Tropinin 57.4, CXRIMPRESSION: No acute cardiopulmonary disease. - Physical Exam General: Alert, In no apparent distress, Mild distress, Obese HEENT: Atraumatic, Normocephalic Neck: 2+ carotid pulse no bruit, JVD not distended Respiratory: Crackles/rales, Other (Tachypneic) Cardiovascular: Normal pulses, Regular rate/rhythm Gastrointestinal: Normal bowel sounds, Soft and benign Musculoskeletal: No clubbing, No swelling Integumentary: No rashes, No breakdown Hospital Course: 58 year-old male patient with end-stage renal disease presented with shortness of breath. Was noted to have fluid volume overload from end-stage renal disease on hemodialysis. Condition improved with dialysis. Patient reported dysphagia, speech eval ordered. Patient tolerating diet, stable for discharge to home with follow-up appointment with primary care physician. PROBLEM: End-stage renal disease on hemodialysis Wednesday Fluid volume overload educated on renal diet Hemodialysis, nephrology noncompliant Dysphagia was evaluated by speech Speech therapy recommendation ST recommends minced and moist diet due to being endentulous and pt.'s preference along with thin liquids. Educate on a renal diet Fluid restriction, daily weight Follow-up with nephrology after discharge Continue home medicines as previously prescribed GOAL: Clear understanding of disease process INSTRUCTIONS: Physician Discharge Instructions: -DC IV and DC home -Follow-up with PCP in 1 to 2 weeks -Please call Dr. Bess at [phone] if any questions regarding hospital stay -Please call nursing station at [phone] if any nursing or medication questions -Return to the emergency room if symptoms worsen Diet: ADA, low sodium Activity: Fall precautions Vital Signs/Physical Exam: Temp Pulse Resp BP Pulse Ox 97.6 F 70 18 140/72 91 08/03/23 12:48 08/03/23 12:48 08/03/23 12:48 08/03/23 12:48 08/03/23 12:48 Laboratory Data at Discharge: WBC 12.60 thou/uL (4.3-10.9) H 08/03/23 03:19 Hgb 11.4 g/dL (13.6-17.9) L D 08/03/23 03:19 Hct 35.4 % (39.6-49.0) L 08/03/23 03:19 Plt Count 348 thou/uL (152-406) 08/03/23 03:19 Sodium 130 mEq/L (136-145) L D 08/03/23 03:19 Potassium 4.1 mEq/L (3.5-5.1) D 08/03/23 03:19 BUN 71 mg/dL (7-18) H 08/03/23 03:19 Creatinine 11.70 mg/dL (0.70-1.30) H 08/03/23 03:19 Glucose 145 mg/dL (74-106) H 08/03/23 03:19 Phosphorus 8.4 mg/dL (2.5-4.9) H 08/03/23 03:19 Magnesium 2.2 mg/dL (1.6-2.4) 08/03/23 03:19 Total Bilirubin 0.4 mg/dL (0.2-1.0) 08/03/23 03:19 AST 19 U/L (15-37) 08/03/23 03:19 ALT 19 U/L (16-61) 08/03/23 03:19 Alkaline Phosphatase 101 U/L (45-117) 08/03/23 03:19 Home Medications: Atorvastatin Calcium [Lipitor] 80 mg PO BEDTIME 08/02/23 Levothyroxine Sodium [Levothyroxine] 200 mcg PO DAILY 08/02/23 Levothyroxine Sodium [Unithroid] 25 mcg PO DAILY 08/02/23 Metoprolol Succinate [Toprol Xl] 25 mg PO DAILY 08/02/23 Patiromer Calcium Sorbitex [Veltassa] 8.4 gm PO DAILY 08/02/23 Sucroferric Oxyhydroxide [Velphoro] 2 tab PO TIDWM 08/02/23 hydrOXYzine HCL [Atarax] 25 mg PO DAILY 08/02/23 Diet: Renal Activity: Fall precautions Followup: Brianna Garrido MD [Primary Care Provider] - Time spent managing pt's care (in minutes): 55
--- NOTE | 2023-08-03 15:41 | PN ---
Date of Progress Note: 08/03/2023 Subjective: The patient was admitted to the hospital with hypercapnic respiratory failure. The devang ent is status post dialysis. The patient complaining from slurred speech. Physical Examination: Vital Signs: Blood pressure 140/72, pulse of 70, afebrile. Chest: Clear to auscultation. Heart: S1, S2. Regular. Abdomen: Soft, nontender. Extremities: Trace edema. Neurologic: Alert. No focality. Laboratory Data: Hemoglobin 11.4. Sodium 130, potassium 4.1, bicarb 22, BUN 71, creatinine 11.7, ca lcium 7.8, phosphorus 8.4, magnesium 2.2. TSH 155. Current Medications: The patient on include , metoprolol atorvastatin, Tylenol, levothyrox ine. Assessment And Plan: 1.End-stage renal disease, normal volume. I am going to continue the patient on dialysis Wednesday, We , Wednesday. 2.Hypertension, controlled, optimal. Continue current treatment. 3.Hyponatremia, dilutional, will be corrected with the dialysis. 4.Hypothyroidism. I am going to go ahead and increase levothyroxine and we will follow up. 5.Diabetes, as by Primary. 6.Slurred speech. Will follow up with primary. Plan for CT. JESUS Voice ID: [id number] Report ID: [id number]
[2023-08-03] MEDS: ATORVASTATIN 80 MG TAB PO SCH (20:53)
[2023-08-04] MEDS: LEVOTHYROXINE SOD 0.1 MG TAB PO SCH (05:31)
[2023-08-04] MEDS: LEVOTHYROXINE SOD 0.025 MG TAB PO SCH (05:32)
[2023-08-04 09:08] VITALS: O2SAT 93
[2023-08-04 09:16] LABS: Absolute Basophils 0.1 K/uL (0-0.5); Absolute Eosinophils 0.1 K/uL (0-0.5); Absolute Lymphocytes (CBC) 0.6 K/uL (0.7-4.9); Absolute Monocytes 0.7 K/uL (0.1-1.3); Absolute Neutrophil 11.7 K/uL (1.8-8.0); Basophils % 0.5 % (0-1.3); Eosinophils % 0.9 % (0-4.4); Hematocrit 36.2 % (39.6-49.0); Hemoglobin 11.7 g/dL (13.6-17.9); Lymphocytes % 4.6 % (15.3-44.8); MCH 31.8 pg (27.0-35.0); MCHC 32.2 g/dL (32.0-36.0); MCV 98.9 fL (80-100); MPV 8.2 fL (7.6-11.3); Monocytes % 5.6 % (3.3-12.3); Neutrophils % 88.4 % (41.7-73.7); Nucleated Red Blood Cells % 0.1 % (0-0); Platelets 355 thou/uL (152-406); RBC Red Blood Cell Count 3.66 M/uL (4.33-5.43); Red Cell Distribution Width 14.8 % (12.1-15.2)
[2023-08-04 10:27] VITALS: TEMP 97
--- NOTE | 2023-08-04 11:04 | RAD REPORT ---
EXAM DESCRIPTION: CT - Head Brain Wo Cont - 08/04/2023 10:43 am CLINICAL HISTORY: aphasia Headache, drowsiness COMPARISON: Head Brain Wo Cont dated 08/01/2023; Head Brain Wo Cont dated 06/04/2023 TECHNIQUE: All CT scans are performed using dose optimization technique as appropriate and may inclu de automated exposure control or mA/KV adjustment according to patient size. FINDINGS: No intracranial hemorrhage, hydrocephalus or extra-axial fluid collection.Moderate general ized brain atrophy. Moderate periventricular and deep white matter chronic microvascular ischemia is present particularly adjacent to the frontal lobes.No areas of brain edema or evidence of midline lida ft. CSF collection in the left middle temporal fossa is unchanged, presumably arachnoid cyst. The paranasal sinuses and mastoids are clear. The calvarium is intact. IMPRESSION: No acute intracranial abnormality.
[2023-08-04 11:10] LABS: Albumin 4.1 g/dL (3.4-5.0); Anion Gap 16.7 mEq/L (5.0-15.0)
[2023-08-04 11:11] LABS: Magnesium 2.5 mg/dL (1.6-2.4); Potassium 4.7 mEq/L (3.5-5.1)
[2023-08-04 11:13] LABS: Phosphorus 10.9 mg/dL (2.5-4.9)
--- NOTE | 2023-08-04 12:09 | PN ---
Date of Progress Note: 08/04/2023 Subjective: The patient was admitted to the hospital with weakness, slurred speech, the patient unde rwent CT today. The patient is scheduled for dialysis today. Physical Examination: Vital Signs: Blood pressure 176/78, pulse of 59, afebrile. Chest: Clear to auscultation. Heart: S1, S2. Systolic murmur. Abdomen: Soft, nontender. Extremities: Plus edema. Neurologic: Alert. Slurred speech. Laboratory Data: Hemoglobin 11.7. Sodium 130, potassium 4.1, bicarb 22, BUN 71, creatinine 11.7, ca lcium 7.8, phos 8.4. Current Medications: The patient is on include hydroxyzine, atorvastatin, metoprolol 25 b.i.d., Renv lester, Zofran, levothyroxine. Assessment And Plan: 1.End-stage renal disease, over volume. We will dialyze the patient today and we will challenge him . 2.Secondary hyperparathyroidism. Continue binder. 3.Over volume. The patient is going to be challenged. 4.Hyponatremia, will be corrected with dialysis. 5.Hypertension. We will follow up blood pressure after dialysis. 6.Hypothyroidism. We just increased levothyroxine. We will follow up. 7.Slurred speech. The patient underwent CT. We will follow up results. We will follow up with radha hung. JESUS Voice ID: [id number] Report ID: [id number]
[2023-08-04 16:31] VITALS: BP 137/56
== END 2023-08-04 16:01 | disposition home or self-care (01) | DRG 640 ==
LOC: ER 08:23 → ERHOLD 10:02 → 2ND 13:49
PROVIDERS: ADMIT Hospitalist; ATTEND Hospitalist
PROC: 5A1D70Z Performance of Urinary Filtration, Intermittent, Less than 6 Hours Per Day (ICD-10-PCS; principal; 2023-08-02)
PROC: 5A09357 Assistance with Respiratory Ventilation, Less than 24 Consecutive Hours, Continuous Positive Airway Pressure (ICD-10-PCS; 2023-08-02)
DX: E87.70 Fluid overload, unspecified (principal); J96.01 Acute respiratory failure with hypoxia; N18.6 End stage renal disease; I12.0 Hypertensive chronic kidney disease with stage 5 chronic kidney disease or end stage renal disease; E11.22 Type 2 diabetes mellitus with diabetic chronic kidney disease; E11.40 Type 2 diabetes mellitus with diabetic neuropathy, unspecified; D63.1 Anemia in chronic kidney disease; E87.1 Hypo-osmolality and hyponatremia; E87.6 Hypokalemia; E03.9 Hypothyroidism, unspecified; E87.29 Other acidosis; E78.00 Pure hypercholesterolemia, unspecified; G47.30 Sleep apnea, unspecified; K21.9 Gastro-esophageal reflux disease without esophagitis; D72.829 Elevated white blood cell count, unspecified; R47.81 Slurred speech; R13.10 Dysphagia, unspecified; Z93.0 Tracheostomy status; Z99.2 Dependence on renal dialysis; Z91.158 Patient's noncompliance with renal dialysis for other reason
CPT/HCPCS: 36415; 70450; 71045; 71046; 80048; 80053; 80069; 82947; 83690; 83735; 83880; 84100; 84439; 84443; 84484; 85025; 87804; 87811; 90935; 92610; 93005; 93970; 96374; 99284; 99285; J1644; J1815; J1940